=== PATIENT | male | born 1945 | race Caucasian/White ===

== ENCOUNTER → 2017-12-29 14:51 | Outpatient (CLI) | payer SELFPAY ==
[2017-12-29 15:00] LABS: Bacteria 0 SEEN /hpf (None Seen); Mucous, Urine 0 SEEN /hpf (<or=2+); Red Blood Cells-Urine 0 SEEN /hpf (0-5); Squamous Epithelial Cells - UA 0 SEEN /hpf (0-5); White Blood Cells 0 SEEN /hpf (0-5)
[2017-12-29 15:50] LABS: Color, Urine Yellow (Yellow); Glucose, Dipstick Normal (Normal); Ketone-Dipstick Negative (Negative); Leukocyte Esterase-Dipstick Negative /ul (Negative); Nitrite-Dipstick Negative (Negative); Occult Blood-Urine Negative /ul (Negative); Protein-Dipstick Negative (Negative); Specific Gravity, Urine 1.005 (1.002-1.030); Urine Bilirubin Dipstick Negative (Negative); Urine Clarity Clear (Clear); Urine Urobilinogen Normal (Normal); Urine pH 6.5 (5.0 - 8.0)
[2017-12-29 15:59] LABS: Hematocrit 38.6 % (40-54); Hemoglobin 13.2 g/dl (13.0-16.5); Mean Corp Hgb Conc 34.2 g/gl (32-36); Mean Corpuscular Hgb 31.4 pg (27.0-32.0); Mean Corpuscular Volume 91.9 fL (80-94); Mean Platelet Vol. 9.8 fl (6.2-12.0); Platelet Count 234 K/mm3 (150-450); RBC Distribution Width CV 12.5 % (11.6-14.6); White Blood Count 6.2 K/mm3 (4.4-11.0)
[2017-12-29 16:15] LABS: Scan Indicated on CBC? Y/N NO
[2017-12-29 16:24] LABS: Albumin, Serum 3.7 g/dL (3.2-5.0); BUN 15 mg/dL (7-18); BUN/Creat Ratio 13.9 RATIO (10-20); Calcium,Total 8.9 mg/dL (8.5-10.1); Chloride 103 mmol/L (98-107); Creatinine, Serum 1.08 mg/dL (0.70-1.30); EST Glomerular Filtration Rate 71 mL/min (>60); Est Glom Filt Rate - Afr Amer 86 mL/min (>60); Glucose 87 mg/dL (74-106); Iron 73 ug/dL (65-175); Iron Binding Capacity,Total 284 ug/dL (250-450); Phosphorus 3.2 mg/dL (2.5-4.9); Potassium 4.1 mmol/L (3.5-5.1); Sodium Level 139 mmol/L (136-145)
== END ==
PROVIDERS: Family Provider Family Medicine; PCP Family Medicine; Visit Provider Internal Medicine Nephrology
DX: N18.2 Chronic kidney disease, stage 2 (mild) (principal)
CPT/HCPCS: 36415; 80069; 81001; 83540; 83550; 85027

== ENCOUNTER → 2018-02-24 13:53 | Outpatient (CLI) | payer SELFPAY | PROVIDERS: Visit Provider Family Medicine | DX: R07.9 Chest pain, unspecified (principal) | CPT/HCPCS: 36415; 84484 ==

== ENCOUNTER → 2018-03-01 12:02 | Outpatient (CLI) | payer SELFPAY ==
--- NOTE | 2018-03-01 12:05 | CT_ITS ---
STUDY: LOW DOSE CT LUNG CANCER SCREENING REASON FOR EXAM: Male, 72 years old. Current smoker with a greater than 50 pack-year history. Cough with occasional bloody sputum. No family history. RADIATION DOSAGE (If Supplied By Facility): CTDIvol = ( 2.55 ) mGy, DLP = ( 93.47 ) mGycm TECHNIQUE: No contrast was administered. Low dose technique was utilized (average mAS-38 and kVp 120). 1.25 mm axial source images with a slice interval of 1.25-mm were reconstructed in lung windows. 2.5 mm axial source images with a slice interval of 2.5-mm were reconstructed in lung windows. 5.0 mm axial source images with a slice interval of 5.0-mm were reconstructed in soft tissue windows. Nodule measured using lung windows on PACS and/or independent workstation with automated measurement of minimum and maximum diameter. Nodule measurement reported as average diameter rounded to the nearest whole number. Growth is defined as an increase ins size of greater than 1.5 mm. COMPARISON: Chest, November 16, 2016. NODULES: Nodule #: 1 Density: Solid Lung location: Left upper lobe lobe: Pleural-based Location in series: Series Number: [id number] Image: 47 Size - D1 x D2 mm: 1.3 x 1.1 mm: 1.3 cm average diameter Margin: Irregular Shape: Triangular Calcification: No Fat: No Temporal comparison: Stable Nodule #: 2 Density: Solid Lung location: Left upper lobe: Pleural-based Location in series: Series Number: [id number] Image: 7 Size - D1 x D2 mm: 5 x 4 mm: 5 mm average diameter Margin: Smooth Shape: Interval Calcification: Yes Fat: No Temporal comparison: Stable Nodule #: 3 Density: Solid Lung location: Left lower lobe: 0.3 cm from pleura Location in series: Series Number: [id number] Image: 98 Size - D1 x D2 mm: 5 x 3 mm: 5 mm average diameter Margin: Smooth Shape: Oval Calcification: No Fat: No Temporal comparison: None Nodule #: 4 Density: Solid Lung location: Left lower lobe: 3.6 cm from pleura Location in series: Series Number: [id number] Image: 197 Size - D1 x D2 mm: 5 x 5 mm: 5 mm average diameter Margin: Smooth Shape: Rounded Calcification: Yes Fat: No Temporal comparison: Stable Total lung nodules (excluding granulomas): 2 Emphysema: There are diffuse emphysematous changes. There is marked scarring in both apices most marked on the left. This extends downward includes the large nodule seen in the left lung apex which may represent focal scarring. Endobronchial lesion: None Aorta: There is atherosclerotic changes of the thoracic aorta without aneurysm. Coronary arteries: There are coronary artery calcifications. Heart: The heart is normal in size. Pulmonary artery: Mediastinal nodes: There are multiple calcified and noncalcified mediastinal and hilar lymph nodes. Other chest and abdominal findings: There are degenerative changes of the thoracic spine. CT/Low Dose CT Lung Screening IMPRESSION: Lung-RADS category 4A - Screening at 3 months with LDCT or evaluation with PET/CT may be used. IMPORTANT NOTES FOR USE: ACR Lung-RADS Version 1.0 Assessment Categories Release Date: November 26, 2013 Category: Coded 0-4 bases on nodule(s) with highest degree of suspicion. Negative screen is defined as categories 1 and 2; a positive screen is defined as categories 3 and 4. Category 3 and 4A nodules that are unchanged on interval CT should be coded as category 2, and individuals returned to screening in 12 months. Category 4X: Category 3 or 4 nodules with additional imaging findings that increase the suspicion of lung cancer, such as spiculation, GGN that doubles in size in 1 year, enlarged lymph notes, etc. Category Modifiers: S (significant finding unrelated to lung cancer) and C (prior history of treated lung cancer) may be added to the 0-4 Lung-RADS Electronically Signed: Dave Quiroga DO at 17:00 EDT Tel [phone], Service support ,
== END ==
PROVIDERS: Family Provider Family Medicine; PCP Family Medicine; Visit Provider Family Medicine
DX: R05 Cough (principal)
CPT/HCPCS: G0297

== ENCOUNTER → 2018-03-06 11:28 | Outpatient (CLI) | payer SELFPAY | PROVIDERS: Family Provider Family Medicine; PCP Family Medicine; Visit Provider Family Medicine | DX: R07.9 Chest pain, unspecified (principal); I10 Essential (primary) hypertension ==

== ENCOUNTER 2018-03-06 14:21 | Emergency (ER) | payer SELFPAY ==
[2018-03-06 14:23] VITALS: BP 203/100; PULSE 80; RESP 16; TEMP 36.4; O2SAT 98; BMI 25.7
--- NOTE | 2018-03-06 14:41 | EKG12_ITS ---
Test Reason : Blood Pressure : / mmHG Vent. Rate : 072 BPM Atrial Rate : 072 BPM P-R Int : 166 ms QRS Dur : 100 ms QT Int : 388 ms P-R-T Axes : 040 037 068 degrees QTc Int : 424 ms Normal sinus rhythm Normal ECG Confirmed by KETTY DAVIS, ASTER ([id number]), editorial specialist EFFIE BYRNE ([id number] on 03/08/2018 10:10:52 AM Referred By: ODALIS Confirmed By:ASTER HDEZ MD
[2018-03-06 14:59] LABS: Absolute Lymphocyte Count 1.14 X10^3/ul (0.83-4.51); Absolute Neutrophil Count 3.3 X10^3/uL (2.0-7.7); Basophil# 0.01 X10^3/uL; Basophil% 0.2 % (0-1); Eosinophil# 0.15 X10^3/uL; Hematocrit 38.1 % (40-54); Hemoglobin 13.1 g/dl (13.0-16.5); Lymphocyte # 1.14 X10^3/ul (4.0); Lymphocyte % 22.4 % (19-41); Mean Corp Hgb Conc 34.4 g/gl (32-36); Mean Corpuscular Hgb 31.1 pg (27.0-32.0); Mean Corpuscular Volume 90.5 fL (80-94); Monocyte# 0.47 X10^3/uL; Monocyte% 9.3 % (0-10); Neutrophil % 64.9 % (47-70); POSITIVE COUNT NO; POSITIVE DIFFERENTIAL NO; POSITIVE MORPHOLOGY NO; Platelet Count 234 K/mm3 (150-450); RBC Distribution Width CV 12.6 % (11.6-14.6); RBC Distribution Width SD 41.4 fl (35.1-43.9); Red Blood Count 4.21 M/mm3 (4.6-6.2); White Blood Count 5.1 K/mm3 (4.4-11.0)
[2018-03-06] MEDS: Aspirin 81 MG TAB.CHEW 324 MG PO (15:02)
[2018-03-06 15:14] LABS: Anion Gap 6 (5-15); BUN 17 mg/dL (7-18); BUN/Creat Ratio 16.2 RATIO (10-20); Calcium,Total 8.8 mg/dL (8.5-10.1); Chloride 96 mmol/L (98-107); Creatinine, Serum 1.05 mg/dL (0.70-1.30); EST Glomerular Filtration Rate 73 mL/min (>60); Est Glom Filt Rate - Afr Amer 89 mL/min (>60); Estimated Creatinine Clearance 57.71 ml/min; Glucose 108 mg/dL (74-106); Potassium 4.3 mmol/L (3.5-5.1); Sodium Level 129 mmol/L (136-145)
--- NOTE | 2018-03-06 15:21 | ED.VISSUMM ---
- ER Visit Summary Date of Service: 03/06/18 Chief Complaint: Hypertension, abdominal pain History of Present Illness: The patient is a 73 M who says he has abdominal pain for 30 years. The real story is that he has at the stress lab to have a stress test today. His blood pressure was 230 systolic so they would not do his stress test. His PCP told him to come to the ER because of hypertension. The patient instead went to his office and they told him to come here. The patient states that his PCP told him that he needed a CAT scan of his abdomen because he is full of residue in his stomach that makes his blood pressure go up. Patient states he needs more HCl in his stomach balances pH. He states that by vomiting and belching he can regulate his blood pressure. However apparently it has not been working because he is on amlodipine metoprolol and lisinopril for his blood pressure. He then told the nurse that he took a pill of clonidine before walking into the ER. Physical Examination: Vital signs reviewed. HEENT exam unremarkable. Heart is regular rate and rhythm without murmurs. Lungs are clear to auscultation. Abdomen is soft and nontender. Extremities reveal no edema. Skin exam normal. Neurologic exam normal. Test Results: EKG is sinus rhythm with no ST changes. Labs are unremarkable except for sodium of 129, chloride of 96. Troponin is 0.041. Emergency Department Course and Treatment: Patient took the clonidine in the parking lot. His blood pressure now is 155/84. I spoke with his primary care physician who states the patient is very difficult to deal with for his blood pressure. Patient will be discharged to take his home medications and follow-up with his PCP Treatment Plan: [] Disposition: Discharge Impression: Hypertension This note was generated with [employer] software. It may contain incorrect words, spelling, and punctuation that were not noted in review of the chart prior to signing ED Disposition - Plan for ED Patient: Chief Complaint: Abd Pain Referrals: Neville Islas DO [Primary Care Provider] -
--- NOTE | 2018-03-06 15:27 | ED.DCSUM_ITS ---
- ER Visit Summary Date of Service: 03/06/18 Chief Complaint: Hypertension, abdominal pain History of Present Illness: The patient is a 73 M who says he has abdominal pain for 30 years. The real story is that he has at the stress lab to have a stress test today. His blood pressure was 230 systolic so they would not do his stress test. His PCP told him to come to the ER because of hypertension. The patient instead went to his office and they told him to come here. The patient states that his PCP told him that he needed a CAT scan of his abdomen because he is full of residue in his stomach that makes his blood pressure go up. Patient states he needs more HCl in his stomach balances pH. He states that by vomiting and belching he can regulate his blood pressure. However apparently it has not been working because he is on amlodipine metoprolol and lisinopril for his blood pressure. He then told the nurse that he took a pill of clonidine before walking into the ER. Physical Examination: Vital signs reviewed. HEENT exam unremarkable. Heart is regular rate and rhythm without murmurs. Lungs are clear to auscultation. Abdomen is soft and nontender. Extremities reveal no edema. Skin exam normal. Neurologic exam normal. Test Results: EKG is sinus rhythm with no ST changes. Labs are unremarkable except for sodium of 129, chloride of 96. Troponin is 0.041. Emergency Department Course and Treatment: Patient took the clonidine in the parking lot. His blood pressure now is 155/84. I spoke with his primary care physician who states the patient is very difficult to deal with for his blood pressure. Patient will be discharged to take his home medications and follow- up with his PCP Treatment Plan: [] Disposition: Discharge Impression: Hypertension This note was generated with [employer] software. It may contain incorrect words, spelling, and punctuation that were not noted in review of the chart prior to signing ED Disposition - Plan for ED Patient: Chief Complaint: Abd Pain Referrals: Neville Islas DO [Primary Care Provider] -
--- NOTE | 2018-03-06 15:28 | ED.DEP ---
ED Disposition - Plan for ED Patient: Disposition: Home or Assisted Living Chief Complaint: Abd Pain Instructions: ED HTN Established Referrals: Neville Islas DO [Primary Care Provider] -
[2018-03-06 15:50] VITALS: BP 179/86; PULSE 79; RESP 16; O2SAT 98
== END 2018-03-06 15:52 | disposition home or self-care (01) ==
PROVIDERS: Emergency Provider Emergency Medicine; Family Provider Family Medicine; PCP Family Medicine
DX: I10 Essential (primary) hypertension (principal); R10.9 Unspecified abdominal pain; Z86.73 Personal history of transient ischemic attack (TIA), and cerebral infarction without residual deficits; Z79.82 Long term (current) use of aspirin; Z79.899 Other long term (current) drug therapy
CPT/HCPCS: 80048; 84484; 85025; 93005; 99284

== ENCOUNTER → 2018-03-07 11:25 | Outpatient (CLI) | payer SELFPAY | PROVIDERS: Family Provider Family Medicine; PCP Family Medicine; Visit Provider Family Medicine | DX: R10.9 Unspecified abdominal pain (principal) ==

== ENCOUNTER → 2018-03-15 16:28 | Outpatient (CLI) | payer SELFPAY | PROVIDERS: Family Provider Family Medicine; PCP Family Medicine; Visit Provider Family Medicine | DX: R10.9 Unspecified abdominal pain (principal) | CPT/HCPCS: 74177; Q9967 ==

== ENCOUNTER → 2018-06-13 14:23 | Outpatient (CLI) | payer SELFPAY ==
--- NOTE | 2018-06-13 14:27 | CT_ITS ---
Follow up lung nodules, SMOKER X 50 YEARS-2-3 PP WEEK TECHNIQUE: Helically acquired images were obtained of the chest. A radiation dose optimization technique was used for this scan. IV Contrast dosage and agent: None. COMPARISON: 03/01/2018 FINDINGS: Stable findings when compared to previous. Left apical and left upper lobe pleural parenchymal scarring and additional right apical mild scarring. Bilateral calcified granulomas, more numerous on the left. No new or suspicious pulmonary lesion. Minor distal lobular emphysema. No acute infiltrate or pleural effusion. Numerous calcified mediastinal lymph nodes together with left hilar calcified nodes. Atherosclerotic thoracic aorta which is normal in caliber and coronary artery calcifications, as well no pericardial effusion. The gallbladder shows mild diffuse wall thickening and subtle gallstones are also suspected. Right hepatic lobe [address]/Chest without Contrast IMPRESSION: 1. No acute disease, significant change, or suspicious lesion. 2. 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 3. Atherosclerotic calcifications including coronary artery calcifications. 4. Probable chronic cholecystitis. If not already performed, suggest further correlation with gallbladder ultrasound. Individualized dose optimization techniques were used for this CT. at 0737 Reported and signed by: Jese Gonsalez MD Electronically Signed: Jese Gonsalez, at 7:34 EST Tel , Service support ,
== END ==
PROVIDERS: Family Provider Family Medicine; PCP Family Medicine; Referring Provider Family Medicine; Visit Provider Family Medicine
DX: R91.8 Other nonspecific abnormal finding of lung field (principal)
CPT/HCPCS: 71250

== ENCOUNTER → 2018-06-19 13:07 | Outpatient (CLI) | payer SELFPAY ==
--- NOTE | 2018-06-19 14:08 | ECHOD_ITS ---
Reason For Study: Chest pain Procedure This was a 2D Doppler, Color Flow transthoracic echocardiogram. Exam performed in department. Left Ventricle Normal LV size. Mild concentric left ventricular hypertrophy. Left ventricular systolic function is normal. The estimated ejection fraction is 60 %. Stage 1 diastolic dysfunction. No regional wall motion abnormalities noted. Right Ventricle Normal RV size. Normal systolic function. Atria Normal left atrium. Normal right atrium. Mitral Valve Normal mitral valve. Tricuspid Valve Normal tricuspid valve. Mild tricuspid valve insufficiency. Aortic Valve Bicuspid aortic valve. Mild aortic stenosis. Peak aortic valve gradient 21 mmHg. Mean aortic valve gradient 10.7 mmHg. Pulmonic Valve Normal pulmonic valve. Great Vessels Normal aortic root. The pulmonary artery is normal size. Normal inferior vena cava. Pericardium/Pleural No pericardial effusion. MMode/2D Measurements & Calculations LVIDd: 3.7 cm IVSd: 1.4 cm LVOT diam: 2.3 cm LVIDs: 1.8 cm LVPWd: 1.2 cm LVOT area: 4.3 cm2 RVDd: 3.0 cm FS: 52.3 % Ao root diam: 3.2 cm LAV(MOD-bp): 66.3 ml LVAd ap4: 31.3 cm2 LAV(MOD-bp) Indexed: 36.0 ml/m2 EDV(MOD-sp4): 93.7 ml LAV(MOD-sp2): 67.0 ml EDV(sp4-el): 94.1 ml LAV(MOD-sp4): 46.3 ml LVAs ap4: 18.3 cm2 ESV(MOD-sp4): 36.5 ml ESV(sp4-el): 36.2 ml EF(MOD-sp4): 61.0 % EF(sp4-el): 61.6 % SV(MOD-sp4): 57.1 ml SV(sp4-el): 57.9 ml LA A4 area: 16.1 cm2 LA dimension(2D): 3.2 cm RA A4 area: 11.4 cm2 Doppler Measurements & Calculations MV E max alvaro: 82.0 cm/sec Ao V2 max: 231.7 cm/sec LV V1 max: 119.7 cm/sec MV A max alvaro: 99.0 cm/sec Ao max P.5 mmHg LV V1 max P.7 mmHg MV E/A: 0.83 Ao V2 mean: 154.7 cm/sec LV V1 mean P.7 mmHg Ao mean P.7 mmHg LV V1 mean: 77.9 cm/sec Ao V2 VTI: 52.1 cm LV V1 VTI: 26.8 cm PAT(I,D): 2.2 cm2 PAT(V,D): 2.2 cm2 SV(LVOT): 115.4 ml PA V2 max: 143.3 cm/sec Interpretation Summary Normal LV size. Mild concentric left ventricular hypertrophy. Left ventricular systolic function is normal. The estimated ejection fraction is 60 %. Stage 1 diastolic dysfunction. Bicuspid aortic valve. Mean aortic valve gradient 10.7 mmHg. Mild aortic stenosis. Ordering Physician: Neville Islas Referring Physician: Neville Islas Performed By: Gabriella Álvarez RDCS
== END ==
PROVIDERS: Family Provider Family Medicine; PCP Family Medicine; Referring Provider Family Medicine; Visit Provider Family Medicine
DX: R07.9 Chest pain, unspecified (principal); I10 Essential (primary) hypertension
CPT/HCPCS: 93306

== ENCOUNTER → 2018-06-21 08:51 | Outpatient (CLI) | payer SELFPAY ==
--- NOTE | 2018-06-21 08:54 | US_ITS ---
STUDY: ABDOMINAL ULTRASOUND - RIGHT UPPER QUADRANT REASON FOR VISIT: Male, 73 years old. Upper abdominal pain and bloating TECHNIQUE: Ultrasound evaluation of the right upper quadrant was performed with real-time and static kelly-scale imaging. TECHNICAL QUALITY: Adequate. COMPARISON: CT from 03/15/2018 FINDINGS: Liver: The liver measures 16 cm. There is normal echogenicity of the liver. The bile ducts are within normal limits. There is hepatic color flow. The direction of portal flow is hepatopetal. There is no demonstrated mass lesion. Gallbladder: Partially distended gallbladder. The gallbladder wall measures 4 mm. There is a negative sonographic Escobar's sign. There is no pericholecystic fluid. No shadowing gallstones are identified, however, echogenic focus with comet tail artifact of the gallbladder fundus identified. Common Bile Duct (C.B.D.): The common bile duct measures 3 mm. Pancreas: There is normal echogenicity of the pancreas. There is no demonstrated pancreatic mass or cyst. Right Kidney: Normal size of the right kidney. The right kidney measures 9.3 cm. Normal renal cortex. The right cortex measures 1.2 cm. There is no demonstrated renal mass or cyst. There is no right hydronephrosis. US/Abdomen Limited IMPRESSION: 1. No shadowing gallstones. 2. Mild gallbladder wall thickening with comet tail artifact suggesting adenomyomatosis. Electronically Signed: Chris Oden MD at 7:29 EST , Service support ,
== END ==
PROVIDERS: Family Provider Family Medicine; PCP Family Medicine; Referring Provider Family Medicine; Visit Provider Family Medicine
DX: K80.10 Calculus of gallbladder with chronic cholecystitis without obstruction (principal)
CPT/HCPCS: 76705

== ENCOUNTER → 2018-07-26 16:18 | Outpatient (CLI) | payer SELFPAY ==
[2018-07-26 17:13] LABS: Color, Urine Yellow (Yellow); Glucose, Dipstick Normal (Normal); Hematocrit 41.1 % (40-54); Hemoglobin 13.9 g/dl (13.0-16.5); Ketone-Dipstick Negative (Negative); Leukocyte Esterase-Dipstick Negative /ul (Negative); Mean Corp Hgb Conc 33.8 g/gl (32-36); Mean Corpuscular Hgb 31.4 pg (27.0-32.0); Mean Corpuscular Volume 92.8 fL (80-94); Mean Platelet Vol. 9.7 fl (6.2-12.0); Nitrite-Dipstick Negative (Negative); Occult Blood-Urine Negative /ul (Negative); Platelet Count 260 K/mm3 (150-450); Protein-Dipstick Negative (Negative); RBC Distribution Width CV 12.5 % (11.6-14.6); RBC Distribution Width SD 42.3 fl (35.1-43.9); Red Blood Count 4.43 M/mm3 (4.6-6.2); Specific Gravity, Urine 1.005 (1.002-1.030); Urine Bilirubin Dipstick Negative (Negative); Urine Clarity Sl Cloudy (Clear); Urine Urobilinogen Normal (Normal); White Blood Count 7.7 K/mm3 (4.4-11.0)
[2018-07-26 17:20] LABS: Scan Indicated on CBC? Y/N NO
[2018-07-26 17:34] LABS: Microalbumin,Random Urine 47.9 mg/L (NO RANGE EST.); Microalbumin:Creatinine Ratio 146.5 mg/g CRE (<30 mg/g CRE); Protein, Urine (Random) 8.3 mg/dL (<11.9); Protein:Creat Ratio 254 mg/g CRE (0-200)
[2018-07-26 17:35] LABS: Albumin, Serum 4.1 g/dL (3.2-5.0); BUN 20 mg/dL (7-18); Calcium,Total 9.3 mg/dL (8.5-10.1); Chloride 104 mmol/L (98-107); Creatinine, Serum 1.25 mg/dL (0.70-1.30); EST Glomerular Filtration Rate 60 mL/min (>60); Est Glom Filt Rate - Afr Amer 73 mL/min (>60); Glucose 93 mg/dL (74-106); Phosphorus 3.5 mg/dL (2.5-4.9); Potassium 4.5 mmol/L (3.5-5.1); Sodium Level 138 mmol/L (136-145)
== END ==
PROVIDERS: Family Provider Family Medicine; PCP Family Medicine; Referring Provider Internal Medicine Nephrology; Visit Provider Internal Medicine Nephrology
DX: N18.2 Chronic kidney disease, stage 2 (mild) (principal)
CPT/HCPCS: 36415; 80069; 81002; 82043; 82570; 84156; 85027

== ENCOUNTER → 2018-08-17 06:22 | Outpatient (CLI) | payer SELFPAY ==
--- NOTE | 2018-08-17 20:29 | STRESSREP ---
Stress Test Report Date : 08/17/2018 Procedure: Pharmacologic (regadenoson (right rotation Indications: Chest pain; CAD Consent: Per the patient Procedure: The patient underwent pharmacologic (regadenoson) evaluation with a peak heart rate of 90 beats per minute (61% predicted maximal heart rate) with a peak blood pressure was 178/100 mmHg. The baseline ECG demonstrated normal sinus rhythm. The peak pharmacological ECG demonstrated no obvious ECG changes.The recovery ECG was subsequently noted to demonstrate approximately 0.[address] segment depression in leads II, III, aVF, and V5 through V6 with gradual resolution towards baseline in recovery. There were no cardiac dysrhythmias pretest, during pharmacologic infusion, or recovery. There was notation of chest discomfort/burning over the right breast with spontaneous resolution and recovery. The examination was discontinued secondary to completion of protocol. Impression: 1. Pharmacologic (regadenoson (radiation 2. Peak pharmacologic ECG with no obvious ECG changes. 3. Recovery ECG subsequently noted a demonstrate approximately 0.[address] segment depression in leads II, III, aVF, and V5 through V6 with gradual resolution towards baseline and recovery 4. Nuclear images pending Myocardial perfusion imaging study: Technique: The patient was injected with 11.7 mci of technetium-99m Cardiolite and subsequent stress SPECT Cardiolite nuclear imaging was obtained in the horizontal long, vertical long, and short axis views. The patient underwent pharmacologic (regadenoson) evaluation with a peak heart rate of 90 beats per minute (61% predicted maximal heart rate) with a peak blood pressure of 178/100 mmHg. The patient was injected with 33.9 mci of technetium 99 M Cardiolite and subsequently stress SPECT Cardiolite nuclear imaging was obtained in the horizontal long, vertical long, and short axis views. A gated Cardiolite study at peak stress was obtained. Interpretation: Rest and stress SPECT Cardiolite nuclear imaging status post realignment, normalization, and attenuation correction, demonstrates the appearance of extra cardiac/gastrointestinal tracer uptake near the inferior segments. Otherwise there appears to be relative uniform tracer uptake and myocardial perfusion appearing within normal limits. There is end systolic thickening and brightening. The gated Cardiolite study demonstrates myocardial thickening and inward wall motion. The reported LVEF is 64%. Impression: 1. Rest and stress SPECT Cardiolite nuclear imaging demonstrate relative uniform tracer uptake and myocardial perfusion appearing within normal limits. 2. The gated Cardiolite study demonstrates an LVEF of 64%. This note was generated using a voice recognition system and there may be incorrect words, spelling or punctuation that were not noted when reviewing the office note prior to saving.
--- OUTSIDE RECORDS SUMMARY | 2018-10-21 18:34 | XMS RPT_ITS ---
:1945 Author Organization OHIP Support Name Relationship Address Phone R Unavailable Unavailable Unavailable CHRIS, RAUDEL Unavailable [address] + [place] [address] R Unavailable Unavailable Unavailable CHRIS, RAUDEL Unavailable [address] + [place] [address] R Unavailable Unavailable Unavailable CHRIS, RAUDEL Unavailable [address] + [place] [address] R Unavailable Unavailable Unavailable CHRIS, RAUDEL Unavailable [address] + [place] [address] R Unavailable Unavailable Unavailable CHRIS, RAUDEL Unavailable [address] + [place] [address] R Unavailable Unavailable Unavailable CHRIS, RAUDEL Unavailable [address] + [place] [address] R Unavailable Unavailable Unavailable CHRIS, RAUDEL Unavailable [address] + [place] [address] R Unavailable Unavailable Unavailable CHRIS, RAUDEL Unavailable [address] + [place] [address] R Unavailable Unavailable Unavailable CHRIS, RAUDEL Unavailable [address] + [place] [address] R Unavailable Unavailable Unavailable CHRIS, RAUDEL Unavailable [address] + [place] [address] R Unavailable Unavailable Unavailable CHRIS, RAUDEL Unavailable [address] + [place] [address] R Unavailable Unavailable Unavailable CHRIS, RAUDEL Unavailable [address] + [place] [address] R Unavailable Unavailable Unavailable CHRIS, RAUDEL Unavailable [address] + [place] [address] Care Team Providers Name Role Phone Mark, Adrian Attending Unavailable Roshan, Neville Referring Unavailable Bakhous, Aziz Attending Unavailable Bakhous, Aziz Referring Unavailable Roshan, Nevlile Primary Care Unavailable Bakhous, Aziz Attending Unavailable Bakhous, Aziz Referring Unavailable Roshan, Neville Primary Care Unavailable Roshan, Neville Attending Unavailable Roshan, Neville Attending Unavailable Roshan, Neville Referring Unavailable Roshan, Neville Primary Care Unavailable Roshan, Neville Attending Unavailable Roshan, Neville Referring Unavailable Roshan, Neville Primary Care Unavailable Roshan, Neville Attending Unavailable Roshan, Neville Referring Unavailable Roshan, Neville Primary Care Unavailable Roshan, Neville Primary Care Unavailable Jean Garcia Attending Unavailable Roshan, Neville Attending Unavailable Roshan, Neville Primary Care Unavailable Roshan, Neville Attending Unavailable Roshan, Neville Referring Unavailable Roshan, Neville Primary Care Unavailable Roshan, Neville Attending Unavailable Roshan, Neville Referring Unavailable Roshan, Neville Primary Care Unavailable Roshan, Neville Attending Unavailable Roshan, Neville Referring Unavailable Roshan, Neville Primary Care Unavailable Roshan, Neville Attending Unavailable Roshan, Neville Referring Unavailable Roshan, Neville Primary Care Unavailable PROBLEMS PROBLEMS DATE TYPE CONDITION / CODE ATTENDING STATUS SOURCE 07/26/2018 Unknown N18.2 - Chronic Bakhous, Aziz Active [place] kidney disease, Community stage 2 (mild) / Hospital N18.2(ICD-10) Repository 07/11/2018 Unknown R07.9 - Chest Mark, [place] Active [place] pain, unspecified Community / R07.9(ICD-10) Hospital Repository 07/11/2018 Unknown R06.09 - Other Mark, Adrian Active [facility] forms of dyspnea Community / R06.09(ICD-10) Hospital Repository 03/17/2018 Unknown R10.9 - Roshan, Neville Active [facility] Unspecified Community abdominal pain / Hospital R10.9(ICD-10) Repository PROCEDURES PROCEDURES No Procedure Records FoundRESULTS RESULTS STRESS REPORT Observed: 08/17/2018 Status: F Source: [place] 8:36 PM [facility] REPOSITORY [facility] Cardiovascular Services [address] [place] [address] MR#: [id number] Acct: [id number] Name: JARED PEREZ Rep #: [id number] : 1945 73 From: Demetrius Hdez MD Primary Care: Neville Islas DO Status: REG CLI Ordering Dr: Sex: Amy Burgess Stress Test Report Date : 08/17/2018 Procedure: Pharmacologic (regadenoson (right rotation Indications: Chest pain; CAD Consent: Per the patient Procedure: The patient underwent pharmacologic (regadenoson) evaluation with a peak heart rate of 90 beats per minute (61% predicted maximal heart rate) with a peak blood pressure was 178/100 mmHg. The baseline ECG demonstrated normal sinus rhythm. The peak pharmacological ECG demonstrated no obvious ECG changes.The recovery ECG was subsequently noted to demonstrate approximately 0.[address] segment depression in leads II, III, aVF, and V5 through V6 with gradual resolution towards baseline in recovery. There were no cardiac dysrhythmias pretest, during pharmacologic infusion, or recovery. There was notation of chest discomfort/burning over the right breast with spontaneous resolution and recovery. The examination was discontinued secondary to completion of protocol. Impression: 1. Pharmacologic (regadenoson (radiation 2. Peak pharmacologic ECG with no obvious ECG changes. 3. Recovery ECG subsequently noted a demonstrate approximately 0.[address] segment depression in leads II, III, aVF, and V5 through V6 with gradual resolution towards baseline and recovery 4. Nuclear images pending Myocardial perfusion imaging study: Technique: The patient was injected with 11.7 mci of technetium-99m Cardiolite and subsequent stress SPECT Cardiolite nuclear imaging was obtained in the horizontal long, vertical long, and short axis views. The patient underwent pharmacologic (regadenoson) evaluation with a peak heart rate of 90 beats per minute (61% predicted maximal heart rate) with a peak blood pressure of 178/100 mmHg. The patient was injected with 33.9 mci of technetium 99 M Cardiolite and subsequently stress SPECT Cardiolite nuclear imaging was obtained in the horizontal long, vertical long, and short axis views. A gated Cardiolite study at peak stress was obtained. Interpretation: Rest and stress SPECT Cardiolite nuclear imaging status post realignment, normalization, and attenuation correction, demonstrates the appearance of extra cardiac/gastrointestinal tracer uptake near the inferior segments. Otherwise there appears to be relative uniform tracer uptake and myocardial perfusion appearing within normal limits. There is end systolic thickening and brightening. The gated Cardiolite study demonstrates myocardial thickening and inward wall motion. The reported LVEF is 64%. Impression: 1. Rest and stress SPECT Cardiolite nuclear imaging demonstrate relative uniform tracer uptake and myocardial perfusion appearing within normal limits. 2. The gated Cardiolite study demonstrates an LVEF of 64%. This note was generated using a voice recognition system and there may be incorrect words, spelling or punctuation that were not noted when reviewing the office note prior to saving. 08/17/182035 <Electronically signed by Demetrius Hdez MD> Date Demetrius Hdez MD CC: Neville Islas DO Date Dictated: 08/17/182028 Date Transcribed: 08/17/182028 Gas Burner Operator: PM Signed URINALYSIS, ROUTINE Collected: 07/26/2018 Status: F Source: [place] (DIPSTICK) 4:20 PM [facility] [place] REPOSITORY Order Comment: How was Urine Obtained? CLEAN CATCH TYPE CODE TESTS RESULT OUT OF RANGE REFERENCE UNITS LAB L400.3000 Yellow COLOR Normal Yellow LAB L400.3050 Clear Sl Normal CLARITY Cloudy LAB L400.3200 Normal mg/dl Normal GLUCOSE, UR Normal LAB L400.3300 Negative mg/dL Normal BILIRUBIN URINE Negative LAB L400.3400 Negative mg/dl Normal KETONE UR Negative LAB L400.3465 1.002-1.030 Normal SP.GR. DIPSTX 1.005 LAB L400.3550 5.0 - 8.0 pH UR Normal 7.0 LAB L400.3600 Negative mg/dl PROT Normal DIPSTX Negative LAB L400.3700 Normal mg/dl Normal UROBILI Normal LAB L400.3750 Negative Normal NITRITE UR Negative LAB L400.3780 Negative /ul Normal OCCULT BLOOD-UR Negative LAB L400.3800 Negative /ul LEUK Normal ESTERASE Negative Performed By: #### L400.2010 #### [facility] [address] [place], [address] CBC-COMPLETE BLOOD CNT Collected: 07/26/2018 Status: F Source: [place] NO DIFF 4:20 PM [facility] [place] REPOSITORY TYPE CODE TESTS RESULT OUT OF RANGE REFERENCE UNITS LAB L100.1000 4.4-11.0 K/mm3 Normal WBC 7.7 LAB L100.1200 4.6-6.2 M/mm3 Low RBC 4.43 LAB L100.1300 13.0-16.5 g/dl Normal HGB 13.9 LAB L100.1400 40-54 % Normal HCT 41.1 LAB L100.1500 80-94 fL Normal MCV 92.8 LAB L100.1600 27.0-32.0 pg Normal MCH 31.4 LAB L100.1700 32-36 g/gl Normal MCHC 33.8 LAB L100.1810 11.6-14.6 % Normal RDW CV 12.5 LAB L100.1820 35.1-43.9 fl Normal RDW SD 42.3 LAB L100.1900 150-450 K/mm3 Normal PLT 260 LAB L100.2000 6.2-12.0 fl Normal MPV 9.7 Performed By: #### L100.0500 #### [facility] [address] [place], [place], [id number] PROTEIN+CREATININE Collected: Status: F Source: [place] RATIO,URINE 07/26/2018 4:20 PM [facility] [place] REPOSITORY TYPE CODE TESTS RESULT OUT OF RANGE REFERENCE UNITS LAB L501.1200 NO RANGE EST. mg/dL Normal UR CREAT 32.70 LAB L501.1930 <11.9 mg/dL Normal 8.3 PROTEIN,UR.R AN. LAB L501.1940 0-200 mg/g CRE High PROT:CRE 254 RATIO Performed By: #### L501.0900, L502.0250 #### [facility] [address] [place], [place], [id number] MICROALB:CREAT Collected: 07/26/2018 Status: F Source: [place] RATIO,RANDOM UR 4:20 PM [facility] [place] REPOSITORY TYPE CODE TESTS RESULT OUT OF RANGE REFERENCE UNITS LAB L502.0500 NO RANGE EST. mg/L Normal 47.9 MICROALBUMIN ,UR LAB L502.0600 <30 mg/g CRE mg/g CRE High 146.5 MALB:CREAT Performed By: #### L501.0900, L502.0250 #### [facility] [address] [place], [address] RENAL PROFILE Collected: 07/26/2018 Status: F Source: [place] 4:20 PM [facility] [place] REPOSITORY TYPE CODE TESTS RESULT OUT OF RANGE REFERENCE UNITS LAB L501.0100 74-106 mg/dL Normal GLU 93 Result Comment: Please note revised GLUCOSE reference range effective 2017. LAB L501.1000 7-18 mg/dL High BUN 20 LAB L501.1100 0.70-1.30 mg/dL Normal CREAT,SERUM 1.25 Result Comment: The validity of the calculated GFR AND GFRAA in patients over 70 years has not been determined. Clinical correlation is essential. LAB L501.1110 >60 mL/min Normal EST GFR 60 Result Comment: Non- GFR Calc LAB L501.1115 >60 mL/min Normal EST GFR - AA 73 Result Comment: GFR Calc LAB L501.1300 10-20 RATIO Normal BUN/CRE 16.0 LAB L501.1800 3.2-5.0 g/dL Normal ALB 4.1 LAB L501.2200 8.5-10.1 mg/dL CA Normal 9.3 LAB L501.2300 2.5-4.9 mg/dL Normal PHOS 3.5 LAB L501.5300 136-145 mmol/L NA Normal 138 LAB L501.5600 3.5-5.1 mmol/L K Normal 4.5 LAB L501.5900 98-107 mmol/L CL Normal 104 LAB L501.6100 21.0-32.0 mmol/L Normal CO2 28.0 Performed By: #### L500.3600 #### [facility] [address] [place], [address] ABDOMEN LIMITED Observed: 06/21/2018 Status: F Source: [place] 8:54 AM [facility] [place] REPOSITORY [facility] Imaging Services [address] [place] [address] Abdomen Limited MR#: [id number] Acct: [id number] Name: JARED PEREZ Rep #: [id number] : 1945 M 73 From: Chris Oden MD PCP: Neville Islas DO Status: REG CLI Study: Abdomen Limited Date of Exam: 06/21/18 Exam# [id number] Ordering Dr: Neville Islas DO STUDY: ABDOMINAL ULTRASOUND - RIGHT UPPER QUADRANT REASON FOR VISIT: Male, 73 years old. Upper abdominal pain and bloating TECHNIQUE: Ultrasound evaluation of the right upper quadrant was performed with real-time and static kelly-scale imaging. TECHNICAL QUALITY: Adequate. COMPARISON: CT from 03/15/2018 FINDINGS: Liver: The liver measures 16 cm. There is normal echogenicity of the liver. The bile ducts are within normal limits. There is hepatic color flow. The direction of portal flow is hepatopetal. There is no demonstrated mass lesion. Gallbladder: Partially distended gallbladder. The gallbladder wall measures 4 mm. There is a negative sonographic Escobar's sign. There is no pericholecystic fluid. No shadowing gallstones are identified, however, echogenic focus with comet tail artifact of the gallbladder fundus identified. Common Bile Duct (C.B.D.): The common bile duct measures 3 mm. Pancreas: There is normal echogenicity of the pancreas. There is no demonstrated pancreatic mass or cyst. Right Kidney: Normal size of the right kidney. The right kidney measures 9.3 cm. Normal renal cortex. The right cortex measures 1.2 cm. There is no demonstrated renal mass or cyst. There is no right hydronephrosis. US/Abdomen Limited IMPRESSION: 1. No shadowing gallstones. 2. Mild gallbladder wall thickening with comet tail artifact suggesting adenomyomatosis. Electronically Signed: Chris Oden MD at 7:29 EST , Service support , CC: Neville Islas DO Gas Burner Operator: Signed ECHOCARDIOGRAM COMPLETE Observed: 06/19/2018 Status: F Source: [place] 2:56 PM [facility] [place] REPOSITORY [facility] Cardiovascular Services [address] [place] [address] Echo Complete 06/19/18 1401 MR#: [id number] Acct: [id number] Name: JARED PEREZ Rep #: [id number] : 1945 73 From: Adrian Flores MD Attending Dr: Neville Islas DO Status: REG CLI Ordering Dr: Neville Islas DO Date: 06/19/18 Location: [facility] Sex: M C Admitted: Reason For Study: Chest pain Procedure This was a 2D Doppler, Color Flow transthoracic echocardiogram. Exam performed in department. Left Ventricle Normal LV size. Mild concentric left ventricular hypertrophy. Left ventricular systolic function is normal. The estimated ejection fraction is 60 %. Stage 1 diastolic dysfunction. No regional wall motion abnormalities noted. Right Ventricle Normal RV size. Normal systolic function. Atria Normal left atrium. Normal right atrium. Mitral Valve Normal mitral valve. Tricuspid Valve Normal tricuspid valve. Mild tricuspid valve insufficiency. Aortic Valve Bicuspid aortic valve. Mild aortic stenosis. Peak aortic valve gradient 21 mmHg. Mean aortic valve gradient 10.7 mmHg. Pulmonic Valve Normal pulmonic valve. Great Vessels Normal aortic root. The pulmonary artery is normal size. Normal inferior vena cava. Pericardium/Pleural No pericardial effusion. MMode/2D Measurements AND Calculations LVIDd: 3.7 cm IVSd: 1.4 cm LVOT diam: 2.3 cm LVIDs: 1.8 cm LVPWd: 1.2 cm LVOT area: 4.3 cm2 RVDd: 3.0 cm FS: 52.3 % Ao root diam: 3.2 cm LAV(MOD-bp): 66.3 ml LVAd ap4: 31.3 cm2 LAV(MOD-bp) Indexed: 36.0 ml/m2 EDV(MOD-sp4): 93.7 ml LAV(MOD-sp2): 67.0 ml EDV(sp4-el): 94.1 ml LAV(MOD-sp4): 46.3 ml LVAs ap4: 18.3 cm2 ESV(MOD-sp4): 36.5 ml ESV(sp4-el): 36.2 ml EF(MOD-sp4): 61.0 % EF(sp4-el): 61.6 % SV(MOD-sp4): 57.1 ml SV(sp4-el): 57.9 ml LA A4 area: 16.1 cm2 LA dimension(2D): 3.2 cm RA A4 area: 11.4 cm2 Doppler Measurements AND Calculations MV E max alvaro: 82.0 cm/sec Ao V2 max: 231.7 cm/sec LV V1 max: 119.7 cm/sec MV A max alvaro: 99.0 cm/sec Ao max P.5 mmHg LV V1 max P.7 mmHg MV E/A: 0.83 Ao V2 mean: 154.7 cm/sec LV V1 mean P.7 mmHg Ao mean P.7 mmHg LV V1 mean: 77.9 cm/sec Ao V2 VTI: 52.1 cm LV V1 VTI: 26.8 cm PAT(I,D): 2.2 cm2 PAT(V,D): 2.2 cm2 SV(LVOT): 115.4 ml PA V2 max: 143.3 cm/sec Interpretation Summary Normal LV size. Mild concentric left ventricular hypertrophy. Left ventricular systolic function is normal. The estimated ejection fraction is 60 %. Stage 1 diastolic dysfunction. Bicuspid aortic valve. Mean aortic valve gradient 10.7 mmHg. Mild aortic stenosis. Ordering Physician: Neville Islas Referring Physician: Neville Islas Performed By: Gabriella Álvarez JORGE 06/19/18 1456 Date Adrian Flores MD CC: Neville Islas DO Date Dictated: 06/19/18 1401 Date Transcribed: 06/19/181455 Gas Burner Operator: Signed CHEST WITHOUT Observed: 06/13/2018 Status: F Source: [place] CONTRAST 2:29 PM [facility] [place] REPOSITORY [facility] Imaging Services [address] [place] [address] Chest without Contrast MR#: [id number] Acct: [id number] Name: JARED PEREZ Rep #: [id number] : 1945 M 73 From: Jese Gonsalez MD PCP: Neville Islas DO Status: REG CLI Study: Chest without Contrast Date of Exam: 06/13/18 Exam# [id number] Ordering Dr: Neville Islas DO Follow up lung nodules, SMOKER X 50 YEARS-2-3 PP WEEK TECHNIQUE: Helically acquired images were obtained of the chest. A radiation dose optimization technique was used for this scan. IV Contrast dosage and agent: None. COMPARISON: 03/01/2018 FINDINGS: Stable findings when compared to previous. Left apical and left upper lobe pleural parenchymal scarring and additional right apical mild scarring. Bilateral calcified granulomas, more numerous on the left. No new or suspicious pulmonary lesion. Minor distal lobular emphysema. No acute infiltrate or pleural effusion. Numerous calcified mediastinal lymph nodes together with left hilar calcified nodes. Atherosclerotic thoracic aorta which is normal in caliber and coronary artery calcifications, as well no pericardial effusion. The gallbladder shows mild diffuse wall thickening and subtle gallstones are also suspected. Right hepatic lobe [address]/Chest without Contrast IMPRESSION: 1. No acute disease, significant change, or suspicious lesion. 2. 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 3. Atherosclerotic calcifications including coronary artery calcifications. 4. Probable chronic cholecystitis. If not already performed, suggest further correlation with gallbladder ultrasound. Individualized dose optimization techniques were used for this CT. at 0737 Reported and signed by: Jese Gonsalez MD Electronically Signed: Jese Gonsalez, at 7:34 EST Tel , Service support , CC: Neville Islas DO Gas Burner Operator: Signed ABDOMEN/PELVIS WITH Observed: 03/15/2018 Status: F Source: [place] CONTRAST 4:38 PM [facility] [place] REPOSITORY [facility] Imaging Services [address] [place] [address] Abdomen/Pelvis WITH Contrast MR#: [id number] Acct: [id number] Name: JARED PEREZ Rep #: [id number] : 1945 M 73 From: Efraín Barboza MD PCP: Neville Islas DO Status: REG CLI Study: Abdomen/Pelvis WITH Contrast Date of Exam: 03/15/18 Exam# [id number] Ordering Dr: Neville Islas DO STUDY: CT ABDOMEN AND PELVIS WITH CONTRAST REASON FOR EXAM: Male, 73 years old. Upper abdominal pain and bloating. Prior appendectomy. History of H. pylori. RADIATION DOSAGE (If Supplied By Facility): CTDIvol = ( 11.93 ) mGy, DLP = ( 690.74 ) mGycm TECHNIQUE: Transaxial images were obtained from the dome of the diaphragm to the symphysis pubis with oral contrast. 100mL ml of Isovue 300 contrast was administered. Sagittal and coronal images were reconstructed. Individualized dose optimization techniques were used for this CT. COMPARISON: None. FINDINGS: There is a calcified pulmonary granuloma in the visualized left lower lobe. The visualized portions of the heart are within normal limits. There is a 1.3 cm cyst in the right lobe of the liver. Normal gallbladder and extrahepatic biliary system. Normal spleen. Normal pancreas. Normal bilateral adrenal glands. Normal right kidney. Normal left kidney. Assessment of the stomach is limited by nondistention. Normal small intestine. There is mildly prominent colonic feces which may represent constipation. Otherwise normal appearing colon. There is non-visualization of the appendix. There is no evidence for appendicitis. There is diffuse atherosclerotic calcification of the abdominal aorta with elongation and tortuosity, but without a demonstrated aneurysm. Normal inferior vena cava. Normal retroperitoneum. Normal urinary bladder. Normal abdominal wall. There are multilevel degenerative changes of the visualized lumbar spine. CT/Abdomen/Pelvis WITH Contrast IMPRESSION: Somewhat prominent colonic feces, suggesting constipation. Atherosclerosis. Small liver cyst. No evidence for acute pathology. No evidence for diverticulitis. No evidence for bowel obstruction or ileus. Electronically Signed: Efraín Barboza MD at 6:02 EDT , Service support , CC: Neville Islas DO Gas Burner Operator: Signed 12 LEAD ELECTROCARDIOGRAM Observed: 03/08/2018 Status: F Source: [place] 10:11 AM [facility] [place] REPOSITORY [facility] Cardiovascular Services [address] [place] [address] 12 Lead EKG 03/06/18 1451 MR#: [id number] Acct: [id number] Name: JARED PEREZ Rep #: [id number] : 1945 73 From: Demetrius Hdez MD Attending Dr: Status: DEP ER Ordering Dr: Jean Garcia MD Date: 03/06/18 Location: ED Sex: M C Admitted: Test Reason : Blood Pressure : / mmHG Vent. Rate : 072 BPM Atrial Rate : 072 BPM P-R Int : 166 ms QRS Dur : 100 ms QT Int : 388 ms P-R-T Axes : 040 037 068 degrees QTc Int : 424 ms Normal sinus rhythm Normal ECG Confirmed by KETTY DAVIS, DEMETRIUS ([id number]), editor index EFFIE BYRNE ([id number]) on 03/08/2018 10:10:52 AM Referred By: RADHA Confirmed By:DEMETRIUS HDEZ MD 03/08/18 1010 Date Demetrius Hdez MD CC: Jean Garcia MD; Neville Islas DO Signed MISCELLANEOUS LAB Collected: 03/07/2018 Status: F Source: [place] PROCEDURE 11:27 AM [facility] [place] REPOSITORY Order Comment: Comments: H.PYLOR BREATH TEST Test(s) Ordered: #[id number] TYPE CODE TESTS RESULT OUT OF RANGE REFERENCE UNITS LAB L801.1541 Normal [facility] TEST Result Comment: TEST RESULT LIMITS H pylori Breath Test Positive Abnormal Negative TESTING PERFORMED AT [facility]. ORIGINAL REPORT ON FILE IN LAB CONTAINS ADDITIONAL TEST SITE INFORMATION. Performed By: #### L801.1541 #### [place] [facility] [address] [place], [address] DISCHARGE INSTRUCTION Observed: 03/06/2018 Status: F Source: [place] 3:29 PM [facility] REPOSITORY [facility] Medical Records Department [address] [place] [address] Discharge Instruction 03/06/18 1528 MR#: [id number] Acct: [id number] Name: JARED PEREZ Rep #: [id number] : 1945 73 From: Jean Garcia MD PCP: Neville Islas DO Status: REG ER ED Disposition - Plan for ED Patient: Disposition: Home or Assisted Living Chief Complaint: Abd Pain Instructions: ED HTN Established Referrals: Neville Islas, [Primary Care Provider] - What to do if you have Problems For any increased pain, shortness of breath, bleeding, nausea or vomiting, chest pain, or any unexpected problems, contact your Primary Care Provider. Call [facility] ([phone]) or report to the closest Emergency Room. Call 911 if necessary. 03/06/18 1529 <Electronically signed by Jean Garcia MD> Date Jean Garcia MD Cosigner Signature (If Indicated): Date CC: Neville Islas DO EMERGENCY DEPARTMENT Observed: 03/06/2018 Status: F Source: [place] SUMMARY 3:27 PM [facility] REPOSITORY [facility] Medical Records Department [address] [place] [address] Emergency Department Summary 03/06/18 1521 MR#: [id number] Acct: [id number] Name: JARED PEREZ Rep #: [id number] : 1945 73 From: Jean Garcia MD PCP: Neville Islas DO Status: REG ER - ER Visit Summary Date of Service: 03/06/18 Chief Complaint: Hypertension, abdominal pain History of Present Illness: The patient is a 73 M who says he has abdominal pain for 30 years. The real story is that he has at the stress lab to have a stress test today. His blood pressure was 230 systolic so they would not do his stress test. His PCP told him to come to the ER because of hypertension. The patient instead went to his office and they told him to come here. The patient states that his PCP told him that he needed a CAT scan of his abdomen because he is full of residue in his stomach that makes his blood pressure go up. Patient states he needs more HCl in his stomach balances pH. He states that by vomiting and belching he can regulate his blood pressure. However apparently it has not been working because he is on amlodipine metoprolol and lisinopril for his blood pressure. He then told the nurse that he took a pill of clonidine before walking into the ER. Physical Examination: Vital signs reviewed. HEENT exam unremarkable. Heart is regular rate and rhythm without murmurs. Lungs are clear to auscultation. Abdomen is soft and nontender. Extremities reveal no edema. Skin exam normal. Neurologic exam normal. Test Results: EKG is sinus rhythm with no ST changes. Labs are unremarkable except for sodium of 129, chloride of 96. Troponin is 0.041. Emergency Department Course and Treatment: Patient took the clonidine in the parking lot. His blood pressure now is 155/84. I spoke with his primary care physician who states the patient is very difficult to deal with for his blood pressure. Patient will be discharged to take his home medications and follow-up with his PCP Treatment Plan: [] Disposition: Discharge Impression: Hypertension This note was generated with Check-Cap dictation software. It may contain incorrect words, spelling, and punctuation that were not noted in review of the chart prior to signing ED Disposition - Plan for ED Patient: Chief Complaint: Abd Pain Referrals: Neville Islas, DO [Primary Care Provider] - What to do if you have Problems For any increased pain, shortness of breath, bleeding, nausea or vomiting, chest pain, or any unexpected problems, contact your Primary Care Provider. Call [facility] ([phone]) or report to the closest Emergency Room. Call 911 if necessary. 03/06/18 1172 <Electronically signed by Jean Garcia MD> Date Jean Radha DAVIS Cosigner Signature (If Indicated): Date CC: Neville Islas DO CBC W/DIFF, AUTOMATED Collected: 03/06/2018 Status: F Source: SCOT 2:50 PM [facility] [place] REPOSITORY TYPE CODE TESTS RESULT OUT OF RANGE REFERENCE UNITS LAB L100.1000 4.4-11.0 K/mm3 Normal WBC 5.1 LAB L100.1200 4.6-6.2 M/mm3 Low RBC 4.21 LAB L100.1300 13.0-16.5 g/dl Normal HGB 13.1 LAB L100.1400 40-54 % Low HCT 38.1 LAB L100.1500 80-94 fL Normal MCV 90.5 LAB L100.1600 27.0-32.0 pg Normal MCH 31.1 LAB L100.1700 32-36 g/gl Normal MCHC 34.4 LAB L100.1810 11.6-14.6 % Normal RDW CV 12.6 LAB L100.1820 35.1-43.9 fl Normal RDW SD 41.4 LAB L100.1900 150-450 K/mm3 Normal PLT 234 LAB L100.2000 6.2-12.0 fl Normal MPV 9.0 LAB L100.2100 47-70 % Normal NEUT% 64.9 LAB L100.2200 19-41 % Normal LY% 22.4 LAB L100.2300 0-10 % Normal MONO% 9.3 LAB L100.2400 0-5 % Normal EO% 3.0 LAB L100.2500 0-1 % Normal BASO% 0.2 LAB L100.2550 0.0-0.9 % Normal IM GRAN % 0.200 Result Comment: IG% - Immature Granulocytes (promyelocytes, myelocytes and metamyelocytes) > 1% indicates that a LEFT SHIFT is Present. LAB L100.2620 2.0-7.7 X10 3/uL Normal Absolute Neut 3.3 LAB L100.2720 0.83-4.51 X10 3/ul Normal Absolute Lymph 1.14 Performed By: #### L100.0100 #### [facility] [address] [place], [address] BASIC METABOLIC Collected: 03/06/2018 Status: F Source: [place] PROFILE (BMP) 2:50 PM [facility] [place] REPOSITORY TYPE CODE TESTS RESULT OUT OF RANGE REFERENCE UNITS LAB L501.0100 74-106 mg/dL High GLU 108 Result Comment: Fasting Glucose result from 100 to 125 mg/dL suggests IMPAIRED HOMEOSTASIS per A.D.A. criteria. Please note revised GLUCOSE reference range effective 2017. LAB L501.1000 7-18 mg/dL Normal BUN 17 LAB L501.1100 0.70-1.30 mg/dL Normal CREAT,SERUM 1.05 Result Comment: The validity of the calculated GFR AND GFRAA in patients over 70 years has not been determined. Clinical correlation is essential. LAB L501.1110 >60 mL/min Normal EST GFR 73 Result Comment: Non- GFR Calc LAB L501.1115 >60 mL/min Normal EST GFR - AA 89 Result Comment: GFR Calc LAB L501.1255 ml/min Normal Estimated CRCL 57.71 LAB L501.1300 10-20 RATIO Normal BUN/CRE 16.2 LAB L501.2200 8.5-10 mg/dL Normal .1 CA 8.8 LAB L501.5300 136-14 mmol/L Low 5 NA 129 LAB L501.5600 3.5-5. mmol/L Normal 1 K 4.3 LAB L501.5900 98-107 mmol/L Low CL 96 LAB L501.6100 21.0-3 mmol/L Normal 2.0 CO2 27.0 LAB L501.6200 5-15 Normal GAP 6 Performed By: #### L500.2500, L501.4010 #### [facility] [address] [place], [address] TROPONIN-I Collected: 03/06/2018 Status: F Source: SCOT 2:50 PM [facility] [place] REPOSITORY TYPE CODE TESTS RESULT OUT OF RANGE REFERENCE UNITS LAB L501.4010 <0.045 ng/mL Normal 0.041 TROPONIN-I Result Comment: TROPONIN-I EXPECTED VALUES <0.045 Negative 0.045 - 0.590 Consistent with Cardiac Damage > OR = 0.600 Critical Value Not every elevated troponin is indicative of NE. These values should be used with clinical judgement in examining the patient's clinical picture for diagnosis. To establish a diagnosis of NE versus myocardial injury, there must be a demonstrated rise and/or fall in the troponin values, in addition to ischemic symptoms, EKG changes, new regional wall motion abnormality, and/or angiographical evidence. PLEASE NOTE: REFERENCE RANGES EDITED 17 Performed By: #### L500.2500, L501.4010 #### [facility] [address] [facility] [place], [address] LUNG Observed: 03/01/2018 Status: F Source: [place] SCREENING 12:05 PM [facility] [place] REPOSITORY [facility] Imaging Services [address] [place] [address] Lung Screening MR#: [id number] Acct: [id number] Name: CHRISJARED L Rep #: [id number] : 1945 M 72 From: Dave Quiroga DO PCP: Neville Islas DO Status: REG CLI Study: Low Dose CT Lung Screening Date of Exam: 03/01/18 Exam# [id number] Ordering Dr: Neville Islas DO STUDY: LOW DOSE CT LUNG CANCER SCREENING REASON FOR EXAM: Male, 72 years old. Current smoker with a greater than 50 pack-year history. Cough with occasional bloody sputum. No family history. RADIATION DOSAGE (If Supplied By Facility): CTDIvol = ( 2.55 ) mGy, DLP = ( 93.47 ) mGycm TECHNIQUE: No contrast was administered. Low dose technique was utilized (average mAS-38 and kVp 120). 1.25 mm axial source images with a slice interval of 1.25- mm were reconstructed in lung windows. 2.5 mm axial source images with a slice interval of 2.5-mm were reconstructed in lung windows. 5.0 mm axial source images with a slice interval of 5.0-mm were reconstructed in soft tissue windows. Nodule measured using lung windows on PACS and/or independent workstation with automated measurement of minimum and maximum diameter. Nodule measurement reported as average diameter rounded to the nearest whole number. Growth is defined as an increase ins size of greater than 1.5 mm. COMPARISON: Chest, November 16, 2016. NODULES: Nodule #: 1 Density: Solid Lung location: Left upper lobe lobe: Pleural-based Location in series: Series Number: 1002 Image: 47 Size - D1 x D2 mm: 1.3 x 1.1 mm: 1.3 cm average diameter Margin: Irregular Shape: Triangular Calcification: No Fat: No Temporal comparison: Stable Nodule #: 2 Density: Solid Lung location: Left upper lobe: Pleural-based Location in series: Series Number: 1002 Image: 7 Size - D1 x D2 mm: 5 x 4 mm: 5 mm average diameter Margin: Smooth Shape: Interval Calcification: Yes Fat: No Temporal comparison: Stable Nodule #: 3 Density: Solid Lung location: Left lower lobe: 0.3 cm from pleura Location in series: Series Number: 1002 Image: 98 Size - D1 x D2 mm: 5 x 3 mm: 5 mm average diameter Margin: Smooth Shape: Oval Calcification: No Fat: No Temporal comparison: None Nodule #: 4 Density: Solid Lung location: Left lower lobe: 3.6 cm from pleura Location in series: Series Number: 1002 Image: 197 Size - D1 x D2 mm: 5 x 5 mm: 5 mm average diameter Margin: Smooth Shape: Rounded Calcification: Yes Fat: No Temporal comparison: Stable Total lung nodules (excluding granulomas): 2 Emphysema: There are diffuse emphysematous changes. There is marked scarring in both apices most marked on the left. This extends downward includes the large nodule seen in the left lung apex which may represent focal scarring. Endobronchial lesion: None Aorta: There is atherosclerotic changes of the thoracic aorta without aneurysm. Coronary arteries: There are coronary artery calcifications. Heart: The heart is normal in size. Pulmonary artery: Mediastinal nodes: There are multiple calcified and noncalcified mediastinal and hilar lymph nodes. Other chest and abdominal findings: There are degenerative changes of the thoracic spine. CT/Low Dose CT Lung Screening IMPRESSION: Lung-RADS category 4A - Screening at 3 months with LDCT or evaluation with PET/CT may be used. IMPORTANT NOTES FOR USE: ACR Lung-RADS Version 1.0 Assessment Categories Release Date: November 26, 2013 Category: Coded 0-4 bases on nodule(s) with highest degree of suspicion. Negative screen is defined as categories 1 and 2; a positive screen is defined as categories 3 and 4. Category 3 and 4A nodules that are unchanged on interval CT should be coded as category 2, and individuals returned to screening in 12 months. Category 4X: Category 3 or 4 nodules with additional imaging findings that increase the suspicion of lung cancer, such as spiculation, GGN that doubles in size in 1 year, enlarged lymph notes, etc. Category Modifiers: S (significant finding unrelated to lung cancer) and C (prior history of treated lung cancer) may be added to the 0-4 Lung-RADS Electronically Signed: Dave Quiorga DO at 17:00 EDT Tel [phone], Service support , CC: Neville Islas DO Gas Burner Operator: Signed TROPONIN-I Collected: 02/24/2018 Status: F Source: CAMPTI 1:56 PM [facility] [place] REPOSITORY Order Comment: 'TROP' Serial specimen #1, #2, #3, or #4: 1 TYPE CODE TESTS RESULT OUT OF RANGE REFERENCE UNITS LAB L501.4010 <0.045 ng/mL Normal 0.037 TROPONIN-I Result Comment: TROPONIN-I EXPECTED VALUES <0.045 Negative 0.045 - 0.590 Consistent with Cardiac Damage > OR = 0.600 Critical Value Not every elevated troponin is indicative of NE. These values should be used with clinical judgement in examining the patient's clinical picture for diagnosis. To establish a diagnosis of NE versus myocardial injury, there must be a demonstrated rise and/or fall in the troponin values, in addition to ischemic symptoms, EKG changes, new regional wall motion abnormality, and/or angiographical evidence. PLEASE NOTE: REFERENCE RANGES EDITED 17 Performed By: #### L501.4010 #### [facility] [address] [place], [place], [address] URINALYSIS, COMPLETE Collected: 12/29/2017 Status: F Source: CAMPTI 2:58 PM [facility] [place] REPOSITORY Order Comment: How was Urine Obtained? CLEAN CATCH TYPE CODE TESTS RESULT OUT OF RANGE REFERENCE UNITS LAB L400.3000 Yellow COLOR Normal Yellow LAB L400.3050 Clear Normal CLARITY Clear LAB L400.3200 Normal mg/dl Normal GLUCOSE, UR Normal LAB L400.3300 Negative mg/dL Normal BILIRUBIN URINE Negative LAB L400.3400 Negative mg/dl Normal KETONE UR Negative LAB L400.3465 1.002-1.030 Normal SP.GR. DIPSTX 1.005 LAB L400.3550 5.0 - 8.0 pH UR Normal 6.5 LAB L400.3600 Negative mg/dl PROT Normal DIPSTX Negative LAB L400.3700 Normal mg/dl Normal UROBILI Normal LAB L400.3750 Negative Normal NITRITE UR Negative LAB L400.3780 Negative /ul Normal OCCULT BLOOD-UR Negative LAB L400.3800 Negative /ul LEUK Normal ESTERASE Negative LAB L400.4050 0-5 /hpf WBC 0 Normal SEEN LAB L400.4100 0-5 /hpf 0 Normal RBC-UA SEEN LAB L400.4150 0-5 /hpf SQUAM 0 Normal EPI SEEN LAB L400.4300 None Seen /hpf 0 Normal BACTERIA SEEN LAB L400.4350 <or=2+ /hpf 0 Normal MUCUS, URINE SEEN Performed By: #### L400.0001 #### [facility] [address] [place], [place], [id number] CBC-COMPLETE BLOOD CNT Collected: 12/29/2017 Status: F Source: CAM[place]I NO DIFF 2:58 PM [facility] [place] REPOSITORY TYPE CODE TESTS RESULT OUT OF RANGE REFERENCE UNITS LAB L100.1000 4.4-11.0 K/mm3 Normal WBC 6.2 LAB L100.1200 4.6-6.2 M/mm3 Low RBC 4.20 LAB L100.1300 13.0-16.5 g/dl Normal HGB 13.2 LAB L100.1400 40-54 % Low HCT 38.6 LAB L100.1500 80-94 fL Normal MCV 91.9 LAB L100.1600 27.0-32.0 pg Normal MCH 31.4 LAB L100.1700 32-36 g/gl Normal MCHC 34.2 LAB L100.1810 11.6-14.6 % Normal RDW CV 12.5 LAB L100.1820 35.1-43.9 fl Normal RDW SD 42.0 LAB L100.1900 150-450 K/mm3 Normal PLT 234 LAB L100.2000 6.2-12.0 fl Normal MPV 9.8 Performed By: #### L100.0500 #### [facility] [address] [place], [place], [address] RENAL PROFILE Collected: 12/29/2017 Status: F Source: SCOT 2:58 PM [facility] [place] REPOSITORY TYPE CODE TESTS RESULT OUT OF RANGE REFERENCE UNITS LAB L501.0100 74-106 mg/dL Normal GLU 87 Result Comment: Please note revised GLUCOSE reference range effective 2017. LAB L501.1000 7-18 mg/dL Normal BUN 15 LAB L501.1100 0.70-1.30 mg/dL Normal CREAT,SERUM 1.08 Result Comment: The validity of the calculated GFR AND GFRAA in patients over 70 years has not been determined. Clinical correlation is essential. LAB L501.1110 >60 mL/min Normal EST GFR 71 Result Comment: Non- GFR Calc LAB L501.1115 >60 mL/min Normal EST GFR - AA 86 Result Comment: GFR Calc LAB L501.1300 10-20 RATIO Normal BUN/CRE 13.9 LAB L501.1800 3.2-5.0 g/dL Normal ALB 3.7 LAB L501.2200 8.5-10.1 mg/dL CA Normal 8.9 LAB L501.2300 2.5-4.9 mg/dL Normal PHOS 3.2 LAB L501.5300 136-145 mmol/L NA Normal 139 LAB L501.5600 3.5-5.1 mmol/L K Normal 4.1 LAB L501.5900 98-107 mmol/L CL Normal 103 LAB L501.6100 21.0-32.0 mmol/L Normal CO2 27.0 Performed By: #### L500.3600, L503.6075, L503.6150 #### [facility] [address] [place], [place], [address] IRON BINDING Collected: 12/29/2017 Status: F Source: SCOT CAPACITY,TOTAL 2:58 PM [facility] [place] REPOSITORY TYPE CODE TESTS RESULT OUT OF RANGE REFERENCE UNITS LAB L503.6075 250-450 ug/dL Normal TIBC 284 Performed By: #### L500.3600, L503.6075, L503.6150 #### [facility] [address] [place], [address] IRON Collected: 12/29/2017 Status: F Source: SCOT 2:58 PM [facility] REPOSITORY TYPE CODE TESTS RESULT OUT OF RANGE REFERENCE UNITS LAB L503.6150 65-175 ug/dL Normal IRON 73 Performed By: #### L500.3600, L503.6075, L503.6150 #### [facility] [address] [place], [address] ALLERGIES ALLERGIES DATE TYPE / CODE NAME / CODE REACTION SEVERITY SOURCE 11/15/2016 Drug No Known Unknown [facility] Allergy/4160 Allergies/F00 [facility] 26966(SNOMED [id number](RXNOR Repository CT) M) ENCOUNTERS ENCOUNTERS ADMIT/DISCHARGE ACCOUNT ADMITTING ENCOUNTER LOCATION SOURCE NUMBER CLASS 08/17/2018 [id number] Ambulatory [place] [facility] Hospital ing:CVS Repository 07/26/2018 [id number] Ambulatory [place] [facility] 4 [facility] ing:LAB Repository 06/21/2018 [id number] Ambulatory [place] 8 [facility] Hospital ing:US Repository 06/19/2018 [id number] Ambulatory BMSBuilding:W [facility] 2 [facility] Repository 06/19/2018 [id number] Ambulatory [place] 2 [facility] Hospital ing:CVS Repository 06/13/2018 [id number] Ambulatory [place] 8 [facility] Hospital ing:CT Repository 03/15/2018 [id number] Ambulatory [place] 0 [facility] Hospital ing:CT Repository 03/07/2018 [id number] Ambulatory [place] 1 [facility] Hospital ing:LAB Repository 03/06/2018/ [id number] Emergency [place] 8 8 [facility] ing:ED Repository 03/06/2018 [id number] Ambulatory [place] 9 [facility] Hospital ing:CVS Repository 03/01/2018 [id number] Ambulatory [place] 4 [facility] ing:CT Repository 02/24/2018 [id number] Ambulatory [place] 9 [facility] ing:BFHLAB Repository 12/29/2017 [id number] Ambulatory [place] 8 [facility] ing:LAB Repository PAYERS PAYERS ENCOUNTER GUARANTOR PAYER SUBSCRIBER SOURCE 08/17/2018 JARED Rodrigues Primary NOT GIVENUNK [place] [id number] Insurance:SELF PAY [facility] Number: Effective Repository [phone]: (330) Date:2018-08-08 (HP) 07/26/2018 JARED Rodrigues Primary NOT GIVENUNK [place] [id number] Insurance[place] [facility] Number: Effective Repository [phone]: (330) Date:2018-07-26 (HP) 06/21/2018 JARED Rodrigues Primary NOT GIVENUNK [place] [id number] Insurance[place] [facility] Number: Effective Repository [phone]: (330) Date:2018-06-15 () 06/19/2018 JARED Rodrigues Primary NOT GIVENUNK [place] [id number] Insurance:[place] [facility] Number: Effective Repository [phone]: (330) Date:2018-06-19 (HP) 06/19/2018 JARED Rodrigues Primary NOT GIVENUNK [place] [id number] Insurance[place] [facility] Number: Effective Repository [phone]: (330) Date:2018-06-14 (HP) 06/13/2018 JARED L Primary NOT GIVENUNK [place] [id number] Insurance[place] [facility] Number: Effective Repository [phone]: (330) Date:2018-06-08 (HP) 03/15/2018 Jared L Primary NOT GIVENUNK [place] [id number] Insurance:SELF PAY [facility] Number: Effective Repository [phone]: (330) Date:2018-03-07 (HP) 03/07/2018 JARED L Primary NOT GIVENUNK [place] [id number] Insurance[place]SELF [place] [facility] Number: Effective Repository [phone]: (330) Date:2018-03-07 (HP) 03/06/2018 Jared L Primary NOT GIVENUNK [place] [id number] Insurance:SELF [place] [facility] Number: Effective Repository [phone]: (330) Date:2018-03-06 (HP) 03/06/2018 Jared L Primary NOT GIVENUNK [place] [id number] Insurance:SELF [place] [facility] Number: Effective Repository [phone]: (330) Date:2018-02-28 () 03/01/2018 Jared L Primary NOT GIVENUNK [place] [id number] Insurance:SELF PA[place] [facility] Number: Effective Repository [phone]: (330) Date:2018-02-28 () 02/24/2018 Jared L Primary NOT GIVENUNK Delta [id number] Insurance:SELF PAY [facility] Number: Effective Repository [phone]: (330) Date:2018-02-24 () 12/29/2017 Jared L Primary NOT GIVENUNK Delta [id number] Insurance:SELF PAY [facility] Number: Effective Repository [phone]: (330) Date:2017-12-29 ()
== END ==
PROVIDERS: Family Provider Family Medicine; PCP Family Medicine; Referring Provider Family Medicine; Visit Provider Family Medicine
DX: R07.9 Chest pain, unspecified (principal); R06.09 Other forms of dyspnea
CPT/HCPCS: 78452; 93017; A9500; A4216; J2785

== ENCOUNTER → 2018-09-07 11:53 | Outpatient (CLI) | payer SELFPAY | PROVIDERS: Family Provider Family Medicine; PCP Family Medicine; Visit Provider Family Medicine | DX: R10.13 Epigastric pain (principal) ==

== ENCOUNTER → 2019-02-19 | Outpatient (CLI) | payer SELFPAY ==
[2019-02-19 17:36] LABS: ALB/GLOB Ratio 1.1 RATIO (0.9-2.4); AST(SGOT) 28 U/L (15-37); Alanine Aminotransfer ALT/SGPT 35 U/L (16-61); Albumin, Serum 3.8 g/dL (3.2-5.0); Alkaline Phosphatase 75 U/L (45-117); Anion Gap 8 (5-15); BUN 17 mg/dL (7-18); BUN/Creat Ratio 17.4 RATIO (10-20); Calcium,Total 8.9 mg/dL (8.5-10.1); Chloride 103 mmol/L (98-107); Creatinine, Serum 0.98 mg/dL (0.70-1.30); EST Glomerular Filtration Rate 80 mL/min (>60); Est Glom Filt Rate - Afr Amer 96 mL/min (>60); Globulin 3.5 g/dL (2.2-4.2); Glucose 97 mg/dL (74-106); Magnesium 1.9 mg/dL (1.6-2.6); Potassium 4.3 mmol/L (3.5-5.1); Protein, Total 7.3 g/dL (6.4-8.2); Sodium Level 138 mmol/L (136-145)
[2019-02-21 20:07] LABS: Endomysial Antibody IgA Negative (Negative)
[2019-02-22 12:51] LABS: Immunoglobulin A 104 mg/dL (61-437); t-Transglutaminase IgA <2 U/mL (0-3)
== END | disposition home or self-care (01) ==
LOC: LAB.FUTURE 15:47
PROVIDERS: Family Provider Family Medicine; PCP Family Medicine; Visit Provider Family Medicine
DX: R10.9 Unspecified abdominal pain (principal); R35.0 Frequency of micturition
CPT/HCPCS: 36415; 80053; 82784; 83516; 83735; 86255

== ENCOUNTER → 2023-01-25 | Outpatient (CLI) | payer SELFPAY ==
[2023-01-25 14:50] LABS: Absolute Lymphocyte Count 2.09 X10^3/uL (0.83-4.51); Absolute Neutrophil Count 3.6 X10^3/uL (2.0-7.7); Basophil# 0.04 X10^3/uL; Basophil% 0.6 % (0-1); Eosinophil# 0.41 X10^3/uL; Hemoglobin 14.2 g/dL (13.0-16.5); Lymphocyte # 2.09 X10^3/ul (0.83-4.51); Lymphocyte % 30.4 % (19-41); Mean Corpuscular Hgb 30.6 pg (27.0-32.0); Mean Corpuscular Volume 92.7 fL (80-94); Monocyte# 0.71 X10^3/uL; Monocyte% 10.3 % (0-10); NRBC Flagged by Analyzer 0 % (0-5); Neutrophil % 52.4 % (47-70); Platelet Count 242 K/mm3 (150-450); RBC Distribution Width CV 12.7 % (11.6-14.6); RBC Distribution Width SD 43.2 fl (35.1-43.9); Red Blood Count 4.64 M/mm3 (4.6-6.2); White Blood Count 6.9 K/mm3 (4.4-11.0)
[2023-01-25 15:42] LABS: Anion Gap 4 (5-15); BUN 22 mg/dL (7-18); BUN/Creat Ratio 17.7 RATIO (10-20); Calcium,Total 9.3 mg/dL (8.5-10.1); Chloride 106 mmol/L (98-107); Creatinine, Serum 1.24 mg/dL (0.70-1.30); EST Glomerular Filtration Rate 60 mL/min (>60); Est Glom Filt Rate - Afr Amer 72 mL/min (>60); Glucose 98 mg/dL (74-106); Magnesium 2.3 mg/dL (1.6-2.6); Potassium 4.2 mmol/L (3.5-5.1); Sodium Level 138 mmol/L (136-145)
== END | disposition home or self-care (01) ==
LOC: BFHLAB 14:03
PROVIDERS: PCP Nurse Practitioner Family; Referring Provider Nurse Practitioner Family; Visit Provider Nurse Practitioner Family
DX: E86.0 Dehydration (principal); I10 Essential (primary) hypertension
CPT/HCPCS: 36415; 80048; 83735; 85025

== ENCOUNTER 2023-08-15 14:36 | Observation (INO) | payer MEDICARE, SELFPAY ==
[2023-08-15] VITALS (7 sets, daily range): BP systolic 163–191; BP diastolic 69–96; PULSE 68–71; RESP 15–19; TEMP 35.3–36.4; O2SAT 98–100; BMI 27.3; BMI 25.5
--- NOTE | 2023-08-15 18:23 | ED.RN ---
Patient is complaining of being off balance and disorientation x 3-4 days with some dizziness. Patient states that the last time this happened his electrolytes were off. Patient also says that he has high BP and that was caused by digestive issues. Patient has changed his story 2-3 times since he has been here. Patient keeps going back to his digestive issues causing all of this. Patient is walking and talking with no issues. Patient wants magnesium checked.
--- NOTE | 2023-08-15 18:46 | EKG12_ITS ---
Test Reason : AM EKG Blood Pressure : / mmHG Vent. Rate : 072 BPM Atrial Rate : 072 BPM P-R Int : 176 ms QRS Dur : 094 ms QT Int : 412 ms P-R-T Axes : 039 020 076 degrees QTc Int : 451 ms Normal sinus rhythm Incomplete right bundle branch block Borderline ECG When compared with ECG of 15-AUG-2023 23:12, MANUAL COMPARISON REQUIRED, DATA IS UNCONFIRMED Confirmed by CHRISTIE DAVIS, DONAVAN ([id number]), index editor MEHDI LOPEZ ([id number]) on 08/16/2023 7:48:06 AM Referred By: Confirmed By:DONAVAN SORIANO MD
--- NOTE | 2023-08-15 18:49 | EX.ED.DYSGE1 ---
HPI <ONDINA Wan - Last Filed: 08/15/23 21:17> History of Present Illness Chief Complaint: Dizziness Narrative Narrative: 78-year-old male with PMH of HTN, CABG, CVA, hyponatremia presents with a feeling of disorientation that is occurred over the last 3 mornings after waking up. He states the last 2 mornings it was brief and resolved on its own. He cannot describe what it feels like but states it feels like my magnesium is low. Today the feeling has persisted all day since awakening so he presents for evaluation. This morning when it started he checked his blood pressure and systolic was 216 so he took a clonidine. He is prescribed amlodipine and metoprolol and he takes them whenever I remember. He took them prior to coming into the ED. He has no chest pain or shortness of breath. No fever, chills, or upper respiratory symptoms. No black or bloody stools or urinary symptoms. PFSH <ONDINA Wan - Last Filed: 08/15/23 21:17> PFSH Medical History CVA (cerebral vascular accident) Hypertension Hyponatremia Neuropathy TIA (transient ischemic attack) Tonsillectomy planned Vasectomy planned Home Medications amlodipine 5 mg tablet 5 mg PO DAILY 03/06/18 [History Last Taken Unknown] metoprolol tartrate 50 mg tablet 25 mg PO BID 03/06/18 [History Last Taken Unknown] Allergy/AdvReac Type Severity Reaction Status Date / Time No Known Allergies Allergy Verified 11/15/16 22:53 Surgical History History of appendectomy Hx of CABG Social History Smoking Status: Former smoker ROS <ONDINA Wan - Last Filed: 08/15/23 21:17> ROS ED ROS Narrative Constitutional: Negative for fever, chills, malaise. CVS: Negative for palpitations, chest pain, syncope. Respiratory: Negative for shortness of breath, cough. GI: Negative for abdominal pain, nausea, vomiting, diarrhea, melena, hematochezia. : Negative for dysuria. Neuro: Negative for headache. EXAM <ONDINA Wan - Last Filed: 08/15/23 21:17> Physical Exam Narrative Exam Narrative: CONST: Patient sitting in no acute distress. EYES: Normal inspection. PERRL, EOMI. NECK: Normal inspection. RESP: No respiratory distress, CTAB. CVS: Regular rate and rhythm, systolic murmur, no gallop. ABD: Soft and nontender, no guarding or rebound, nondistended. SKIN: Color normal, no rash, warm, dry, intact. EXTREMITIES: Normal appearance, no pedal edema. NEURO: Oriented x4. Face symmetric, cranial nerves II through XII intact. No upper or lower extremity drift, normal strength and sensation, normal finger-nose and [id number]. No aphasia or dysarthria. NIH is 0. PSYCH: Normal affect. Const Vital Signs: 08/15/23 14:37 08/15/23 18:07 08/15/23 18:23 Temperature 95.5 F L Temperature Source Temporal Pulse Rate 68 68 Respiratory Rate 16 15 Respiratory Effort Normal Non-Labored Respiratory Pattern Normal Blood Pressure 168/89 H 190/77 H Blood Pressure Mean 115 114 Pulse Ox 100 100 Oxygen Delivery Method Room Air Room Air 08/15/23 18:39 08/15/23 19:46 08/15/23 21:09 Temperature Temperature Source Pulse Rate 69 68 71 Respiratory Rate 16 19 H 18 Respiratory Effort Respiratory Pattern Blood Pressure 191/78 H 163/96 H 187/80 H Blood Pressure Mean 115 118 115 Pulse Ox 100 99 98 Oxygen Delivery Method Room Air Room Air Room Air 08/15/23 21:10 Temperature Temperature Source Pulse Rate 71 Respiratory Rate 18 Respiratory Effort Respiratory Pattern Blood Pressure 187/80 H Blood Pressure Mean 115 Pulse Ox 98 Oxygen Delivery Method <Dr. Jerry Hightower, DO - Last Filed: 08/16/23 00:12> Physical Exam Const Vital Signs: 08/15/23 14:37 08/15/23 18:07 08/15/23 18:23 Temperature 95.5 F L Temperature Source Temporal Pulse Rate 68 68 Respiratory Rate 16 15 Respiratory Effort Normal Non-Labored Respiratory Pattern Normal Blood Pressure 168/89 H 190/77 H Blood Pressure Mean 115 114 Pulse Ox 100 100 Oxygen Delivery Method Room Air Room Air 08/15/23 18:39 08/15/23 19:46 08/15/23 21:09 Temperature Temperature Source Pulse Rate 69 68 71 Respiratory Rate 16 19 H 18 Respiratory Effort Respiratory Pattern Blood Pressure 191/78 H 163/96 H 187/80 H Blood Pressure Mean 115 118 115 Pulse Ox 100 99 98 Oxygen Delivery Method Room Air Room Air Room Air 08/15/23 21:10 Temperature Temperature Source Pulse Rate 71 Respiratory Rate 18 Respiratory Effort Respiratory Pattern Blood Pressure 187/80 H Blood Pressure Mean 115 Pulse Ox 98 Oxygen Delivery Method MDM <ONDINA Wan - Last Filed: 08/15/23 21:17> [facility] Narrative Medical decision making narrative: History gathered from: Patient and spouse Patient reports 3 days of disorientation. He is very vague about his symptoms. He is awake alert with stable vital signs. BP 168/89 with other vitals normal vital signs. He states he took his amlodipine and metoprolol before arrival. Heart is regular rate and rhythm with a chronic holosystolic murmur. Lungs clear. Abdomen soft and nontender. Patient is rambling and alert and oriented x 2. He has no focal neurological deficits and NIH is 0. CBC and BMP are unremarkable. CXR and UA negative. CT brain shows no acute process. EKG is normal sinus rhythm with incomplete RBBB no acute ischemic changes. Troponin is elevated 84, delta pending. He has no symptoms of chest pain or shortness of breath but with his chronic high blood pressure this is concerning. 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 Case will be discussed with the hospitalist for admission. In discussion with the hospitalist he was given aspirin 325 mg but with no cardiac symptoms we do not think he needs anticoagulated. Plan will be for stress in the morning and further evaluation of altered mental status. Differential: Electrolyte abnormality, UTI, CVA External records reviewed Echo 06/19/2018 shows mild LVH, EF 60% Bicuspid aortic valve, mild aortic stenosis Stress test 08/17/2018 negative for acute ischemia Lab Data Attestation: I reviewed the patient's lab results. Labs: Laboratory Results - last 24 hr 08/15/23 08/15/23 08/15/23 18:35 18:58 20:40 WBC 6.2 RBC 4.26 L Hgb 13.2 Hct 38.6 L MCV 90.6 MCH 31.0 MCHC 34.2 RDW Std Deviation 43.6 RDW Coeff of Deepika 13.2 Plt Count 242 MPV 9.9 Immature Gran % (Auto) 0.300 Neut % (Auto) 62.4 Lymph % (Auto) 25.1 [place] % (Auto) 8.8 Eos % (Auto) 2.9 Baso % (Auto) 0.5 Absolute Neuts (auto) 3.9 Absolute Lymphs (auto) 1.56 Nucleated RBC % 0 Sodium 136 Potassium 4.7 Chloride 100 Carbon Dioxide 28.0 Anion Gap 8 BUN 20 H Creatinine 1.11 Estim Creat Clear Calc 52.21 Est GFR (MDRD) Af Amer 82 Est GFR (MDRD) Non-Af 68 BUN/Creatinine Ratio 18.0 Glucose 99 Calcium 9.3 Magnesium 2.0 Total Bilirubin 0.60 AST 29 ALT 31 Alkaline Phosphatase 97 Troponin I High Sens 84 H 85 H Total Protein 7.6 Albumin 3.9 Globulin 3.7 Albumin/Globulin Ratio 1.1 Urine Color Yellow Urine Clarity Sl. Cloudy Urine pH 8.0 Ur Specific [place] 1.010 Urine Protein Negative Urine Glucose (UA) Normal Urine Ketones Negative Urine Occult Blood Negative Urine Nitrite Negative Urine Bilirubin Negative Urine Urobilinogen Normal Ur Leukocyte Esterase Negative Urine RBC 0 SEEN Urine WBC 0 SEEN Ur Squamous Epith Cells 0-5 SEEN Urine Bacteria 0 SEEN Urine Mucus 0 SEEN Radiography Diagnostic Testing: Clinical Impression(s) from Imaging Studies Brain CT 08/15/23 18:54 IMPRESSION: Chronic ischemic changes. No CT evidence of acute intracranial pathology. Electronically Signed: Jonathan Marx DO at 19:30 EST , Chest X-Ray 08/15/23 19:20 IMPRESSION: Status post CABG. No acute findings. Electronically Signed: Jonathan Marx DO at 19:30 EST , ED attending interpretation of 1-view chest x-ray shows normal heart size, no acute infiltrate, edema, or effusion. EKG Initial EKG: Attestation: I personally reviewed and interpreted this EKG as follows: Interpretation: Sinus Rhythm, No Acute Injury Pattern and RBBB Comments: Normal sinus rhythm at 64 bpm Incomplete RBBB No STEMI criteria <Dr. Jerry Hightower DO - Last Filed: 08/16/23 00:12> [facility] Lab Data Labs: Laboratory Results - last 24 hr 08/15/23 08/15/23 08/15/23 18:35 18:58 20:40 WBC 6.2 RBC 4.26 L Hgb 13.2 Hct 38.6 L MCV 90.6 MCH 31.0 MCHC 34.2 RDW Std Deviation 43.6 RDW Coeff of Deepika 13.2 Plt Count 242 MPV 9.9 Immature Gran % (Auto) 0.300 Neut % (Auto) 62.4 Lymph % (Auto) 25.1 [place] % (Auto) 8.8 Eos % (Auto) 2.9 Baso % (Auto) 0.5 Absolute Neuts (auto) 3.9 Absolute Lymphs (auto) 1.56 Nucleated RBC % 0 Sodium 136 Potassium 4.7 Chloride 100 Carbon Dioxide 28.0 Anion Gap 8 BUN 20 H Creatinine 1.11 Estim Creat Clear Calc 52.21 Est GFR (MDRD) Af Amer 82 Est GFR (MDRD) Non-Af 68 BUN/Creatinine Ratio 18.0 Glucose 99 Calcium 9.3 Magnesium 2.0 Total Bilirubin 0.60 AST 29 ALT 31 Alkaline Phosphatase 97 Troponin I High Sens 84 H 85 H Total Protein 7.6 Albumin 3.9 Globulin 3.7 Albumin/Globulin Ratio 1.1 Urine Color Yellow Urine Clarity Sl. Cloudy Urine pH 8.0 Ur Specific [place] 1.010 Urine Protein Negative Urine Glucose (UA) Normal Urine Ketones Negative Urine Occult Blood Negative Urine Nitrite Negative Urine Bilirubin Negative Urine Urobilinogen Normal Ur Leukocyte Esterase Negative Urine RBC 0 SEEN Urine WBC 0 SEEN Ur Squamous Epith Cells 0-5 SEEN Urine Bacteria 0 SEEN Urine Mucus 0 SEEN Radiography Diagnostic Testing: Clinical Impression(s) from Imaging Studies Brain CT 08/15/23 18:54 IMPRESSION: Chronic ischemic changes. No CT evidence of acute intracranial pathology. Electronically Signed: Jonathan Marx DO at 19:30 EST , Chest X-Ray 08/15/23 19:20 IMPRESSION: Status post CABG. No acute findings. Electronically Signed: Jonathan Marx, at 19:30 EST , Treatment and Re-Evaluation :: ED attending note: I evaluated the patient in conjunction with the ODILON. I agree with his/her statements and above findings. I have personally performed a face to face assessment of the patient and have reviewed the ODILON Note. I performed a substantive portion of the visit including all aspects of the following. I personally saw the patient performed chart review, physical exam, reviewed labs, imaging (if obtained), and formulated a treatment and management plan. Brief history: 78-year-old male here with dizziness. Exam: Nursing triage notes reviewed, Vital signs reviewed Constitutional: please see mdm HENT: MMM Eyes: Pupils equal round and reactive to light, Extraocular muscles intact Neck: No stridor, no JVD, full neck ROM Lungs: Clear to auscultation, No wheezing or rales. No increased work of breathing, no conversational dyspnea, no accessory muscle use, no nasal flaring. No respiratory distress noted Heart: Regular rate and rhythm, No murmurs, No rubs and No gallops, 2+ distal pulses (radial, femoral, posterior tibial) in all extremities Abdomen: Soft, there is no tenderness, rigidity, rebound or guarding, no obvious peritoneal signs, no palpable pulsatile abdominal masses, no auscultated abdominal bruit : No CVAT Extremities: No edema Neuro: Alert and oriented x2 (baseline A&Ox3), cranial nerves II through XII are intact. No pain with extraocular muscle movement. There is negative test of skew. 5 of 5 strength in upper and lower extremities in flexion extension. Intact sensation to light touch in upper and lower extremity dermatomes. No truncal or extremity ataxia. No dysdiadochokinesia. Normal gait. 2+ reflexes in upper and lower extremities. No meningeal signs. Negative Babinski. NIH of 0. Skin: No rash or lesions noted MDM/plan: Chief Complaint: Dizziness External records reviewed: Normal stress test in 2019 Factors affecting care: Hypertension, hyperlipidemia MDM narrative: Patient was hemodynamically stable, afebrile, nontoxic-appearing. No acute focal neurologic deficits I have personally reviewed the patient's chest x-ray. Chest x-ray is unremarkable for pulmonary edema, pneumothorax, pneumonia or focal cardiopulmonary abnormality. EKG with normal sinus rhythm, normal axis, normal intervals, no ST or T wave changes to suggest ischemia. No evidence of WPW, [place], ARVD. Will dispo based on labs, images, shared decision-making. Shared decision making: I will have a discussion with the patient and or visitors regarding risk/benefits of further testing or admission. They will be made aware of of the risk/benefits inherent in this decision they will be given the opportunity to voice understanding. Discharge Plan Dx/Rx/DC Orders Clinical Impression: Acute alteration in mental status, Chronic hypertension, Elevated troponin Disposition Disposition: Acute Care Hospital [facility] Discharge Date/Time: 08/15/23 22:15 Capacity <ONDINA Wan - Last Filed: 08/15/23 21:17> [employer]aster [employer] Reflex Medical hold order details:: IF a medical hold is selected below, a suggested order for a MEDICAL HOLD will reflex upon signing the document. Next of kin: [place] law dictates a PRIORITY LIST for identifying legal decision-maker/legal next of kin in the following order (LNOK): 1st: The patient?s legal guardian, if any 2nd: The patient's spouse (if status is questionable, consult Risk Management) 3rd: The patient?s adult child(marek) (majority, if multiple children) 4th: The patient?s parents 5th: The patient?s adult siblings (majority, if multiple children siblings)
[2023-08-15 18:52] LABS: Absolute Lymphocyte Count 1.56 X10^3/uL (0.83-4.51); Absolute Neutrophil Count 3.9 X10^3/uL (2.0-7.7); Basophil# 0.03 X10^3/uL; Basophil% 0.5 % (0-1); Eosinophil# 0.18 X10^3/uL; Eosinophils% 2.9 % (0-5); Hematocrit 38.6 % (40-54); Hemoglobin 13.2 g/dL (13.0-16.5); Lymphocyte # 1.56 X10^3/ul (0.83-4.51); Lymphocyte % 25.1 % (19-41); Mean Corp Hgb Conc 34.2 g/dL (32-36); Mean Corpuscular Volume 90.6 fL (80-94); Mean Platelet Vol. 9.9 fl (6.2-12.0); Monocyte# 0.55 X10^3/uL; Monocyte% 8.8 % (0-10); NRBC Flagged by Analyzer 0 % (0-5); Neutrophil # 3.88 X10^3/uL (2.7-7.7); Neutrophil % 62.4 % (47-70); Platelet Count 242 K/mm3 (150-450); RBC Distribution Width CV 13.2 % (11.6-14.6); RBC Distribution Width SD 43.6 fl (35.1-43.9); Red Blood Count 4.26 M/mm3 (4.6-6.2); White Blood Count 6.2 K/mm3 (4.4-11.0)
--- NOTE | 2023-08-15 18:54 | CT_ITS ---
EXAM: CT HEAD WITHOUT INTRAVENOUS CONTRAST CLINICAL INDICATION: confusion TECHNIQUE: Multiple axial images were obtained of the head without intravenous contrast. This CT exam was performed using one or more of the following dose reduction techniques: automated exposure control, adjustment of the mA and/or kV according to patient size, and/or use of iterative reconstruction technique. COMPARISON: MRI brain, 10/31/2014 FINDINGS: BRAIN AND EXTRA-AXIAL SPACES: Chronic lacunar type infarct in the right kern radiata. There is non-specific periventricular hypoattenuation which is most commonly related to chronic microvascular ischemic disease in a patient of this age. There is no mass, mass-effect, or shift of the midline structures. No evidence of acute infarct or acute intracranial hemorrhage. There is no evidence of pathologic extra-axial fluid. There is no hydrocephalus. Patent basal cisterns. BONES/JOINTS: No significant abnormality. No discrete lytic or blastic abnormalities. VASCULATURE: Arteriosclerosis. SINUSES: No significant findings. MASTOID AIR CELLS: No significant effusion. ORBITS: No acute findings. CT/Brain/Head without Contrast IMPRESSION: Chronic ischemic changes. No CT evidence of acute intracranial pathology. Electronically Signed: Jonathan Marx DO at 19:30 EST ,
[2023-08-15 19:03] LABS: Bacteria 0 SEEN /hpf (None Seen); Mucous, Urine 0 SEEN /hpf (<or=2+); Red Blood Cells-Urine 0 SEEN /hpf (0-5); White Blood Cells 0 SEEN /hpf (0-5)
[2023-08-15 19:07] LABS: Color, Urine Yellow (Yellow); Glucose, Dipstick Normal (Normal); Ketone-Dipstick Negative (Negative); Leukocyte Esterase-Dipstick Negative /ul (Negative); Nitrite-Dipstick Negative (Negative); Occult Blood-Urine Negative /ul (Negative); Protein-Dipstick Negative (Negative); Urine Bilirubin Dipstick Negative (Negative); Urine Clarity Sl. Cloudy (Clear); Urine Urobilinogen Normal (Normal)
[2023-08-15 19:15] LABS: Squamous Epithelial Cells - UA 0-5 SEEN /hpf (0-5)
--- OUTSIDE RECORDS SUMMARY | 2023-08-15 19:18 | XMS RPT_ITS | CCD ---
Author Name Unknown Address [address] [place] [address] Organization [facility] Care Team Providers Care Information Technology Data Analyst Name Role Phone Roshan FARLEYNeville Primary Care Provider Medications Completed/Discontinued Medications Medication Drug Class(es) Dates Sig (Normalized) Sig (Original) amLODIPine 10 mg oral tablet (1 source) Dihydropyridine Calcium Channel Arianna Start: 07-23-2019 take 0.5 tablet by mouth once daily amLODIPine (NORVASC) 10 mg tablet Take 0.5 tablets by mouth once daily. 30 tablet 1 07/23/2019 Active Problems Active Problems Problem Classification Problem Date Documented Da te Episodic/Chronic Coronary atherosclerosis and other heart disease (1 source) Coronary atherosclerosis; Translations: [Atherosclerotic heart disease of [place] coronary artery without angina pectoris] Onset: 07-18-2019 07-23-2019 Chronic Essential hypertension (1 source) Hypertensive disorder; Translations: [Essential (primary) hypertension] Onset: 10-03-2009 07-23-2019 Chronic Other gastrointestinal disorders (1 source) Burping; Translations: [Eructation] 01-13-2010 Episodic Other gastrointestinal disorders (1 source) Abdominal bloating; Translations: [Abdominal distension (gaseous)] 01-13-2010 Episodic Unclassified (1 source) Transition of care; Translations: [Transition of care performed with sharing of clinical summary] Onset: 07-21-2019 07-23-2019 Past or Other Problems Problem Classification Problem Date Documented Da te Episodic/Chronic Abdominal pain (1 source) Right upper quadrant pain; Translations: [Right upper quadrant pain] Onset: 10-03-2009 10-03-2009 Episodic Administrative/social admission (1 source) Discharge status; Translations: [Encounter for administrative examinations, unspecified] Onset: 07-18-2019 07-18-2019 Episodic Esophageal disorders (1 source) Esophagitis; Translations: [Esophagitis, unspecified] Onset: 03-23-2010 03-23-2010 Episodic Gastritis and duodenitis (1 source) Acute gastritis; Translations: [Acute gastritis without bleeding] Onset: 03-23-2010 03-23-2010 Episodic Nonspecific chest pain (1 source) Chest pain; Translations: [Chest pain, unspecified] Onset: 07-18-2019 07-18-2019 Episodic Other circulatory disease (1 source) H/O: varicose veins; Translations: [Personal history of other diseases of the circulatory system] Onset: 07-18-2019 07-18-2019 Episodic Other circulatory disease (1 source) History of cerebrovascular accident; Translations: [Personal history of transient ischemic attack (TIA), and cerebral infarction without residual deficits] Onset: 07-18-2019 07-23-2019 Episodic Other gastrointestinal disorders (1 source) Flatulence, eructation and gas pain; Translations: [Flatulence] Onset: 03-23-2010 03-23-2010 Episodic Other nervous system disorders (1 source) Acute postoperative pain; Translations: [Other acute postprocedural pain] Onset: 07-19-2019 07-21-2019 Episodic Pleurisy; pneumothorax; pulmonary collapse (1 source) Atelectasis; Translations: [Atelectasis] Onset: 07-20-2019 07-21-2019 Episodic Results Test Name Value Interpretation Reference Range Facil ity Encounters Encounter Date Encounter Type Care Provider Facility Start: 05-19-2022 End: 05-19-2022 [facility] Facility:[facility] Start: 02-22-2022 Telephone encounter Beata Shin i, MD Work Phone: Radiology Procedures Date Procedure Procedure Detail Performing Clinician Start: 07-20-2019 Adult depression screening assessment Beata Herrera MD Work Phone: Plan of Treatment Date Care Activity Detail Author Start: 05-05-2023 DIABETES SCREEN DIABETES SCREEN [facility] Start: 04-01-2022 Influenza vaccination INFLUENZA (#1) [facility] Start: 08-01-2021 ADVANCE DIRECTIVE DISCUSSION ADVANCE DIRECTIVE DISCUSSION [facility] Start: 05-05-2021 Hepatitis B surface antibody level LDL CHOLESTEROL [facility] Start: 08-03-2020 ANNUAL PCP TEAM 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 HELPER ROCHELLE DISEASE VISIT ANNUAL PCP TEAM CHRONIC DISEASE VISIT [facility] Start: 07-20-2020 Adult depression scr eening assessment DEPRESSION SCREENING [facility] Start: 1994 SHINGRIX VACCINE (1 of 2) [place] GRIX VACCINE (1 of 2) [facility] Start: 1963 Urine microalbumin profile DTAP,TDAP ,TD (1 - Tdap) [facility] Start: 1962 BP CONTROLLED (<130/80) BP CONTROLLE D (<130/80) [facility] Start: 1962 HEPATITIS C SCREENING HEPATITIS C SC REENING [facility] Start: 1950 PNEUMOCOCCAL: 65+ (1 - PCV) PNEUMOCOCCAL: 65+ (1 - PCV) [facility] Start: 1944 COVID-19 VACCINE (#1) COVID-19 VACCI NE (#1) [facility] Social History Date Type Detail Facility Start: 05-07-2019 End: 08-01-1993 Tobacco smoking status NHIS Occasional tobacco smoker [facility] End: 08-01-1993 History of tobacco use Cigar Smoker [facility] Start: 05-07-2019 Cigarettes smoked cu rrent (pack per day) - Reported 1 [facility] Start: 05-07-2019 Tobacco use and exposure Smoke less tobacco non-user [facility] Start: 05-05-2020 Alcohol intake 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 quit cigarettes in 1993 [facility] Start: 1945 Sex Assigned At Not on file [facility] Medical Equipment Procedure Code Equipment Code Equipment Original Text Equipment Identifier Dates Shelbiana Thk1.65mm P tfe 4x.5in Cardiovascular Sterile - [id number] Start: 07-19-2019 Note 02-22-2022 Telephone Encounter - Michela Saucedo - 02/22/2022 3:14 PM EDT Note Date & Type Note Facility 02-22-2022 Miscellaneous Notes Patient arrived at the [facility] in [place], [place] requesting an appointment to become established with a new PCP in this region. The patient reports having similar symptoms in the right upper extremity that he experienced prior to his quintuple bypass surgery. He was provided the phone number and name of the cardiac surgeon and was scheduled to see Dr. Gray on 05/28/22. Please advise patient if he should follow up with portable grinding machine operator prior to PCP visit. 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 Advance Directive(s) 07/18/2019 4:40 PM Advance Directive(s) 07/12/2019 2:31 PM Advance Directive(s) 05/14/2019 8:30 AM Summary Purpose Family History No Family History Records Found Additional Source Comments Source Comments (unrecognize d section and content) In the event this informatio n is protected by the Federal Confidentiality of Alcohol and Drug Abuse Patient Records regulations: The Federal rules restrict any use of the information to criminally investigate or prosecute any alcohol or drug abuse patient.[facility] Reason for Visit (unrecogniz ed section and content) Care Teams (unrecognized sec tion and content) (unrecognized sect ion and content) No Status Records Found INFORMATION SOURCE (unrecogn ized section and content) FOR RECORDS PERTAINING TO PATIENTS WHO ARE OR HAVE BEEN ENROLLED IN A CHEMICAL DEPENDENCY/SUBSTANCEABUSE PROGRAM, SOME INFORMATION MAY BE OMITTED. This clinical summary was aggregated from multiple sources. Caution should be exercised in using it in the provision of clinical care. This summary normalizes information from multiple sources, and as a consequence, information in this document may materially change the coding, format and clinical context of patient data. In addition, data may be omitted in some cases. CLINICAL DECISIONS SHOULD BE BASED ON THE PRIMARY CLINICAL RECORDS. [employer] provides no warranty or guarantee of the accuracy or completeness of information in this document.
--- NOTE | 2023-08-15 19:20 | RAD_ITS ---
EXAM: XR CHEST, 1 VIEW CLINICAL INDICATION: weakness TECHNIQUE: Frontal view of the chest. COMPARISON: 11/16/2016 FINDINGS: LUNGS AND PLEURAL SPACES: No significant abnormality. No consolidation or edema. No pneumothorax. No effusion. HEART: Status post CABG. MEDIASTINUM: Central airways and mediastinal contour are unremarkable. BONES/JOINTS: Median sternotomy. No acute fracture. SOFT TISSUES: No significant abnormality. VASCULATURE: Atherosclerosis. RAD/Chest 1 View (Portable) IMPRESSION: Status post CABG. No acute findings. Electronically Signed: Jonathan Marx DO at 19:30 EST ,
[2023-08-15 19:24] LABS: ALB/GLOB Ratio 1.1 RATIO (0.9-2.4); AST(SGOT) 29 U/L (15-37); Alanine Aminotransfer ALT/SGPT 31 U/L (16-61); Albumin, Serum 3.9 g/dL (3.2-5.0); Alkaline Phosphatase 97 U/L (45-117); Anion Gap 8 (5-15); BUN 20 mg/dL (7-18); Calcium,Total 9.3 mg/dL (8.5-10.1); Chloride 100 mmol/L (98-107); Creatinine, Serum 1.11 mg/dL (0.70-1.30); EST Glomerular Filtration Rate 68 mL/min (>60); Est Glom Filt Rate - Afr Amer 82 mL/min (>60); Estimated Creatinine Clearance 52.21 ml/min; Globulin 3.7 g/dL (2.2-4.2); Glucose 99 mg/dL (74-106); Potassium 4.7 mmol/L (3.5-5.1); Protein, Total 7.6 g/dL (6.4-8.2); Sodium Level 136 mmol/L (136-145); Troponin-I HS 84 pg/mL (3.0-78.0)
[2023-08-15 21:08] LABS: Troponin-I HS 85 pg/mL (3.0-78.0)
--- NOTE | 2023-08-15 21:12 | PCM.HP.STD ---
[facility] - General General Date of Admission: 08/15/23 Date of Service: 08/15/23 Chief Complaint: Dizziness. [facility] Narrative JARED PEREZ, is a 78 M with a past medical history of essential hypertension, hyperlipidemia, overweight; with BMI of 27.4 present on admission, history of CAD; s/p CABG x 5 (2019), history of TIA/CVA, history of hyponatremia, OA and medical noncompliance who presents to [facility] ER complaining of dizziness. Mr. Carvajal is a tangential and suboptimal historian at this time however he reports his symptoms began approximately 3 days ago when he woke up in the morning feeling disoriented. He states that over the last 2 mornings the sensation resolved spontaneously on its own so he did not seek medical attention at that time. However, today the feeling persisted all day since awakening so he decided to come to the ER for further evaluation and treatment. He says he cannot precisely describe exactly what it feels like but he says he has had similar symptoms in the past with electrolyte abnormalities such as when his magnesium level was low. He also noted that his blood pressure was elevated in the 216 mmHg systolic range so he took a clonidine with patient chronically prescribed amlodipine and metoprolol and he stated to the ER provider that he takes them whenever he remembers - but he admits to taking both his metoprolol and amlodipine prior to arrival. He denies associated fevers, nausea, vomiting, shortness of breath, black stools, bloody stools or urinary symptoms but he does admit to intermittent chills with diaphoresis and transient RLE swelling that has now resolved. In the ER he was noted to have a mildly elevated first troponin of 84 ng/mL followed by a second slightly elevated troponin of 85 ng/mL with an elevated D-dimer of 0.79 present on admission along with a negative CTA of the head and a chest x-ray that revealed previous CABG but no acute findings. He was then admitted to the CDU under observation status to undergo cardiac stress testing in the a.m. for a stay that is expected to be less than 48 hours. [facility] Medical History (Updated 08/16/23 @ 00:[address] Darrel Carpenter DO) CVA (cerebral vascular accident) Hypertension Hyponatremia Neuropathy TIA (transient ischemic attack) Tonsillectomy planned Vasectomy planned Home Medications amlodipine 5 mg tablet 5 mg PO DAILY 08/06/18 [History Last Taken Unknown] metoprolol tartrate 50 mg tablet 25 mg PO BID 03/06/18 [History Last Taken Unknown] Allergy/AdvReac Type Severity Reaction Status Date / Time No Known Allergies Allergy Verified 11/15/16 22:53 Surgical History (Updated 08/16/23 @ 00:[address] Darrel Carpenter, DO) History of appendectomy Hx of CABG Social History Smoking Status: Former smoker ROS ROS Narrative Review of systems: General: Patient admits to chills with occasional diaphoresis. He denies fevers. HENT: Denies headache, denies stuffy nose, denies sore throat EYES: Denies changes in vision Resp: Denies cough, denies shortness of breath Cardiac: Denies chest pain or palpitations. GI: Denies abdominal pain, denies changes in bowel, had some nausea : Denies changes in urination Extremity: Denies swelling Musculoskeletal: Positive for mild residual right lower extremity swelling slightly worse than usual. Neuro: Denies any numbness/tingling but he does admit to chronic and unchanged mild difficulty with word finding. Heme: Denies any bleeding or bruising Skin: Denies rashes Psychiatric: No complaints voiced due to uncontrolled depression or anxiety. Endocrine: No polyuria, polydipsia or polyphagia. The rest of the 14 point ROS was negative except for positives in HPI. Vital Signs Vital Signs Vital Signs: 08/15/23 14:37 08/15/23 18:07 08/15/23 18:23 Temperature 95.5 F L Temperature Source Temporal Pulse Rate 68 68 Respiratory Rate 16 15 Respiratory Effort Normal Non-Labored Respiratory Pattern Normal Blood Pressure 168/89 H 190/77 H Blood Pressure Mean 115 114 Pulse Ox 100 100 Oxygen Delivery Method Room Air Room Air 08/15/23 18:39 08/15/23 19:46 08/15/23 21:09 Temperature Temperature Source Pulse Rate 69 68 71 Respiratory Rate 16 19 H 18 Respiratory Effort Respiratory Pattern Blood Pressure 191/78 H 163/96 H 187/80 H Blood Pressure Mean 115 118 115 Pulse Ox 100 99 98 Oxygen Delivery Method Room Air Room Air Room Air 08/15/23 21:10 Temperature Temperature Source Pulse Rate 71 Respiratory Rate 18 Respiratory Effort Respiratory Pattern Blood Pressure 187/80 H Blood Pressure Mean 115 Pulse Ox 98 Oxygen Delivery Method Weight Weight: 179 lb 14.355 oz Body Mass Index (BMI) 27.3 Physical Exam Const alert, oriented x3, no apparent distress, average body habitus and healthy appearing General Appearance: cooperative HEENT normocephalic, head/scalp atraumatic, hearing grossly normal bilaterally, moist oral mucous membranes and oropharynx normal Eyes PERRL and EOMs intact bilaterally Neck no lymphadenopathy, supple and no JVD Resp normal respiratory effort, no retractions, no use of accessory muscles and clear to auscultation bilaterally Cardio regular rate and regular rhythm GI normal to inspection, nondistended, normoactive bowel sounds, soft to palpation, non-tender and non-distended Results Medical Records Data Attestation: I reviewed the patient's medical records Lab / Micro Data Attestation: I reviewed the patient's lab results. 08/15/23 18:35 08/15/23 18:35 Labs: Laboratory Results - last 24 hr 08/15/23 18:35: WBC 6.2, RBC 4.26 L, Hgb 13.2, Hct 38.6 L, MCV 90.6, MCH 31.0, MCHC 34.2, RDW Std Deviation 43.6, RDW Coeff of Deepika 13.2, Plt Count 242, MPV 9.9, Immature Gran % (Auto) 0.300, Neut % (Auto) 62.4, Lymph % (Auto) 25.1, [place] % (Auto) 8.8, Eos % (Auto) 2.9, Baso % (Auto) 0.5, Absolute Neuts (auto) 3.9, Absolute Lymphs (auto) 1.56, Nucleated RBC % 0, Sodium 136, Potassium 4.7, Chloride 100, Carbon Dioxide 28.0, Anion Gap 8, BUN 20 H, Creatinine 1.11, Estim Creat Clear Calc 52.21, Est GFR (MDRD) Af Amer 82, Est GFR (MDRD) Non-Af 68, BUN/Creatinine Ratio 18.0, Glucose 99, Calcium 9.3, Magnesium 2.0, Total Bilirubin 0.60, AST 29, ALT 31, Alkaline Phosphatase 97, Troponin I High Sens 84 H, Total Protein 7.6, Albumin 3.9, Globulin 3.7, Albumin/Globulin Ratio 1.1 08/15/23 18:58: Urine Color Yellow, Urine Clarity Sl. Cloudy, Urine pH 8.0, Ur Specific Iaeger 1.010, Urine Protein Negative, Urine Glucose (UA) Normal, Urine Ketones Negative, Urine Occult Blood Negative, Urine Nitrite Negative, Urine Bilirubin Negative, Urine Urobilinogen Normal, Ur Leukocyte Esterase Negative, Urine RBC 0 SEEN, Urine WBC 0 SEEN, Ur Squamous Epith Cells 0-5 SEEN, Urine Bacteria 0 SEEN, Urine Mucus 0 SEEN 08/15/23 20:40: Troponin I High Sens 85 H Micro: [facility] Imaging Services [address] [place] [address] CTA Chest W/WO Contrast MR#: [id number] Acct: [id number] Name: JARED PEREZ Rep #: [id number] : 1945 M 78 From: Abran Fournier MD PCP: Dr. Neville Islas, Status: ADM IN Study: CTA Chest W/WO Contrast Date of Exam: 08/16/23 Exam# [id number] Ordering Dr: Darrel Carpenter DO STUDY: CTA CHEST REASON FOR EXAM: Male, 78 years old. rule out PE RADIATION DOSAGE (If Supplied By Facility): CTDIvol = ( 12.28 ) mGy, DLP = ( 449.98 ) mGycm TECHNIQUE: The examination was performed with the intravenous administration of IV 100mL Isovue-370. Post-processing of the angiographic images was performed, with multiplanar reformation and 3D reconstruction. Individualized dose optimization techniques were used for this CT. COMPARISON: Prior study dated: 06/13/2018 FINDINGS: PULMONARY ARTERIES: Normal enhancement of the main pulmonary artery and right and left pulmonary arteries. Normal enhancement of the bilateral peripheral pulmonary arteries. There is no demonstrated pulmonary embolism. AORTA: Normal thoracic aorta and visualized great vessels. There is no demonstrated aortic dissection. MEDIASTINUM: Prominent heart. No pericardial effusion. Dense coronary artery calcifications are present. Prominent subcarinal lymph node. No other lymphadenopathy. Calcified hilar nodes are seen. LUNGS/PLEURA: Normal visualized trachea and bronchi. The lungs are well expanded. Mild paraseptal emphysema at the lung apices. Pleural thickening at the upper lobes near the apices with some calcification. The appearance is similar to prior imaging. No pleural effusion. No pneumothorax. CHEST WALL: Normal chest wall structures. UPPER ABDOMEN: No acute abnormality in the visualized upper abdomen. Hepatic cyst in the right lobe. Mild thickening of the left adrenal gland is unchanged. OSSEOUS STRUCTURES: No acute or suspicious osseous abnormality. Mild changes of the spine. Status post median sternotomy. CT/CTA Chest W/WO Contrast IMPRESSION: No pulmonary embolism or other acute intrathoracic abnormality. Chronic pleural thickening at the lung apices with calcification. Evidence of previous granulomatous disease. Electronically Signed: Abran Fournier MD at 3:11 EST , CC: Dr. Darrel Carpenter DO; Dr. 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 No CT evidence of acute intracranial pathology. Electronically Signed: Jonathan Marx DO at 19:30 EST , Chest X-Ray 08/15/23 19:20 IMPRESSION: Status post CABG. No acute findings. Electronically Signed: Jonathan Marx DO at 19:30 EST , Assessment & Plan Assessment/Plan (1) Elevated troponin: (2) Hypertensive emergency without congestive heart failure: (3) Hx of CABG: (4) History of stroke: PLAN: Plan 1. Elevated troponins of 84 present on admission increasing to 85 on second check with elevated D-dimer of 0.79 present on admission in the setting of known coronary artery disease; status post CABG x 5 (2019) - Admit to CDU under observation status. Check nuclear stress test in the a.m. to evaluate for underlying ischemia. Check echocardiogram to evaluate left ventricular ejection fraction. Continue daily aspirin and give nitroglycerin as needed. Patient has no cardiac symptoms at this time. Checked d-dimer with recent RLE swelling and now we will check right lower extremity Doppler. CTA chest is negative for PE. Finally, if nuclear stress test is positive for ischemia or there are other compelling findings indicative of acute pathologic issues please consider formal cardiology consultation. 2. Hypertensive emergency with blood pressure of 216 mm Hg systolic just prior to admission likely causing #1 due to to suspected medical noncompliance - Continue amlodipine and metoprolol as previous plus give as needed IV hydralazine for systolic blood pressure greater than 160 mmHg. 3. Hyperlipidemia - Resume statin and check lipid profile in light of #1. 4. Overweight; with BMI of 27.4 present on admission - Weight loss will be recommended. Check TSH. 5. History of TIA/CVA - Noted. 6. History of hyponatremia - Stable with sodium of 136 mmol/L present on admission. 7. OA - Stable. Give Tylenol as needed. 8. DVT prophylaxis - Give one full dose of Lovenox and then decrease dose to 40 mg daily if cardiac workup outlined above is negative. Total time: Approximately 45 minutes. Charges/Coding Visit Charges OBSV E&M: 86279 Observ/hosp same date L1
[2023-08-15] MEDS: Aspirin 325 MG Tablet PO (21:23)
--- OUTSIDE RECORDS SUMMARY | 2023-08-15 21:37 | XMS RPT_ITS | CCD ---
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 Name Role Phone [facility] [...] Coronary atherosclerosis; Translations: [Atherosclerotic heart disease of [place] coronary artery without angina pectoris] Onset: 07-18-2019 [...] Care Provider Facility Start: 05-19-2022 End: 05-19-2022 [facility] Facility:[facility] Start: 02-22-2022 Telephone encounter Beata Shin i, MD Work Phone: Radiology Procedures Date Procedure Procedure Detail Performing Clinician Start: 07-20-2019 Adult depression screening assessment Beata Herrera MD Work Phone: Plan of Treatment Date Care Activity Detail Author Start: 05-05-2023 DIABETES SCREEN DIABETES SCREEN [facility] Start: 04-01-2022 Influenza vaccination INFLUENZA (#1) [facility] Start: 08-01-2021 ADVANCE DIRECTIVE DISCUSSION ADVANCE DIRECTIVE DISCUSSION [facility] Start: 05-05-2021 Hepatitis B surface antibody level LDL CHOLESTEROL [facility] Start: 08-03-2020 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 ROCHELLE DISEASE VISIT ANNUAL PCP TEAM CHRONIC DISEASE VISIT [facility] Start: 07-20-2020 Adult depression scr eening assessment DEPRESSION SCREENING [facility] Start: 1994 SHINGRIX VACCINE (1 of 2) [place] GRIX VACCINE (1 of 2) [facility] Start: 1963 Urine microalbumin profile DTAP,TDAP ,TD (1 - Tdap) [facility] Start: 1962 BP CONTROLLED (<130/80) BP CONTROLLE D (<130/80) [facility] Start: 1962 HEPATITIS C SCREENING HEPATITIS C SC REENING [facility] Start: 1950 PNEUMOCOCCAL: 65+ (1 - PCV) PNEUMOCOCCAL: 65+ (1 - PCV) [facility] Start: 1945 COVID-19 VACCINE (#1) COVID-19 VACCI NE (#1) [facility] Social History Date Type Detail Facility Start: 05-07-2019 End: 08-01-1993 Tobacco smoking status NHIS Occasional tobacco smoker [facility] End: 08-01-1993 History of tobacco use Cigar Smoker [facility] Start: 05-07-2019 Cigarettes smoked cu rrent (pack per day) - Reported 1 [facility] Start: 05-07-2019 Tobacco use and exposure Smoke less tobacco non-user [facility] Start: 05-05-2020 Alcohol intake 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 quit cigarettes in 1993 [facility] Start: 1945 Sex Assigned At Not on file [facility] Medical Equipment Procedure Code Equipment Code Equipment Original Text Equipment Identifier Dates [place] Thk1.65mm P tfe 4x.5in Cardiovascular Sterile - [id number] Start: 07-19-2019 Note 02-22-2022 Telephone Encounter - Michela Saucedo - 02/22/2022 3:14 PM EDT Note Date & Type Note Facility 02-22-2022 Miscellaneous Notes Patient arrived at the [facility] in [place], [place] requesting an appointment to become established [...] patient if he should follow up with crop or grain farmer prior to PCP visit. 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 [employer] provides no warranty or guarantee of the accuracy or completeness of information in this document.
--- NOTE | 2023-08-15 22:08 | ECHOD_ITS ---
Reason For Study: CHF Procedure This was a 2D Doppler, Color Flow transthoracic echocardiogram. Exam performed portable in patient room. Left Ventricle Normal LV size. Apical false tendon noted. The estimated ejection fraction is 65 %. Normal diastology for age. No regional wall motion abnormalities noted. Right Ventricle Normal RV size. Normal systolic function. Atria Normal left atrium. Normal right atrium. Mitral Valve The mitral valve is structurally normal. No prolapse or stenosis seen. Mild (1+) mitral valve insufficiency. Tricuspid Valve Normal tricuspid valve. Trivial tricuspid valve insufficiency. Right ventricular systolic pressure estimated to be 19 mmHg. Aortic Valve Moderate diffuse aortic valve thickening. Moderate diffuse aortic valve calcification. Moderate aortic stenosis. Peak aortic valve gradient 52 mmHg. Mean aortic valve gradient 32 mmHg. Pulmonic Valve Normal pulmonic valve. Great Vessels Normal aortic root. Pericardium/Pleural No pericardial effusion. MMode/2D Measurements & Calculations LVIDd: 3.7 cm IVSd: 1.6 cm LVOT diam: 2.3 cm LVIDs: 2.0 cm LVPWd: 1.2 cm LVOT area: 4.3 cm2 RVDd: 3.2 cm FS: 45.9 % Ao root diam: 3.1 cm LAV(MOD-bp): 57.9 ml LVAd ap4: 25.7 cm2 LAV(MOD-bp) Indexed: 30.2 ml/m2 LVLd ap4: 7.5 cm LAV(MOD-sp2): 55.0 ml EDV(MOD-sp4): 72.3 ml LAV(MOD-sp4): 47.4 ml EDV(sp4-el): 74.9 ml LVAs ap4: 13.6 cm2 LVLs ap4: 6.2 cm ESV(MOD-sp4): 25.9 ml ESV(sp4-el): 25.3 ml EF(MOD-sp4): 64.2 % EF(sp4-el): 66.2 % LVAd ap2: 26.1 cm2 SV(MOD-sp4): 46.4 ml SV(MOD-sp2): 48.4 ml LVLd ap2: 8.1 cm EDV(MOD-sp2): 68.8 ml EDV(sp2-el): 70.8 ml LVAs ap2: 11.9 cm2 LVLs ap2: 7.2 cm ESV(MOD-sp2): 20.4 ml ESV(sp2-el): 16.6 ml EF(MOD-sp2): 70.3 % SV(sp4-el): 49.6 ml LA dimension(2D): 3.9 cm LA A4 area: 15.8 cm2 RA A4 area: 11.6 cm2 TAPSE: 1.1 cm Time Measurements MV dec time: 0.25 sec Doppler Measurements & Calculations MV E max evangelist: 65.2 cm/sec Lat Peak E' Evangelist: 7.1 cm/sec Med Peak E' Evangelist: 4.5 cm/sec MV A max evangelist: 93.2 cm/sec E/E' lat: 9.2 E/E' med: 14.3 MV E/A: 0.70 Ao V2 max: 360.9 cm/sec LV V1 max: 94.7 cm/sec MV dec slope: 262.2 cm/sec2 Ao max P.3 mmHg LV V1 max P.6 mmHg Ao V2 mean: 268.0 cm/sec LV V1 mean P.9 mmHg Ao mean P.6 mmHg LV V1 mean: 66.6 cm/sec Ao V2 VTI: 82.1 cm LV V1 VTI: 22.6 cm AV (velocity ratio): 0.28 PAT(I,D): 1.2 cm2 PAT(V,D): 1.1 cm2 SV(LVOT): 97.4 ml PA V2 max: 107.7 cm/sec TR max evangelist: 202.7 cm/sec TR max P.4 mmHg ECHO/Echo Complete Interpretation Summary The estimated ejection fraction is 65 %. Mild (1+) mitral valve insufficiency. Moderate aortic stenosis. Ordering Physician: Darrel Carpenter Referring Physician: Neville Islas Performed By: Gabriella Álvarez RDCS
--- NOTE | 2023-08-15 23:06 | EKG12_ITS ---
Test Reason : ELEVATED TROP Blood Pressure : / mmHG Vent. Rate : 075 BPM Atrial Rate : 075 BPM P-R Int : 170 ms QRS Dur : 082 ms QT Int : 396 ms P-R-T Axes : 037 023 075 degrees QTc Int : 442 ms Normal sinus rhythm Normal ECG When compared with ECG of 15-AUG-2023 17:09, MANUAL COMPARISON REQUIRED, DATA IS UNCONFIRMED Confirmed by CHRISTIE DAVIS, DONAVAN ([id number]), book editor MEHDI LOPEZ ([id number]) on 08/16/2023 7:49:52 AM Referred By: DR Ellis Confirmed By:DONAVAN SORIANO MD
--- NOTE | 2023-08-15 23:22 | NURSING ---
Pt refusing to call when getting up d/t being shakey, attempted to educate pt, pt stated I will not call to get up and I will be up all night. Pt refusing lovenox, also attempted to provide education. Pt and asking very specific questions about stress test, informed this RN they may refuse. Educated that it is their right to refuse but the doctor can answer their questions specifically. and patient resting in room, no other needs at this time.
[2023-08-16] VITALS (8 sets, daily range): BP systolic 138–193; BP diastolic 69–94; PULSE 64–97; RESP 18; TEMP 36.2–36.7; O2SAT 98–100
[2023-08-16] MEDS: hydrALAZINE 20 MG/ML Vial 5 MG IV (00:04)
[2023-08-16] MEDS: 0.9% Saline Lock 10 ML Syringe IV (00:04)
[2023-08-16] MEDS: Enoxaparin 80 MG/0.8 ML Syringe SC (00:04)
--- NOTE | 2023-08-16 00:13 | VDLE_ITS ---
Reason For Study: Elevated D Dimer RIGHT LEFT GSV Harvested for CABG. GSV is normal. CFV is compressible, spontaneous, phasic, CFV is compressible, spontaneous, phasic, competent and demonstrates normal competent, and demonstrates normal augmentation. augmentation. FV is compressible, spontaneous, phasic, FV is compressible, spontaneous, phasic, competent and demonstrates normal competent and demonstrates normal augmentation. augmentation. POP V is compressible, spontaneous, phasic, POP V is compressible, spontaneous, phasic, competent and demonstrates normal competent and demonstrates normal augmentation. augmentation. T/P Trunk is compressible. T/P Trunk is compressible. PTV is compressible. PTV is compressible. RT PerV is compressible. LT PerV is compressible. Procedure Non vascularized area of mixed echogenicity This is a venous duplex using B-mode, color is noted in the Lt Pop Fossa measuring flow and spectral Doppler. approximately 4.03cm x 2.78cm. Exam performed in department. The exam was diagnostic. A preliminary report was called and/or faxed to E M ASSEMBLER responsible for patient. VL/Venous Duplex US - Elder Extrem Interpretation Summary Deep veins of the bilateral lower extremities are patent and compressible segme ntally. There is no evidence of bilateral lower extremity deep vein thrombosis. The bilateral great saphenous veins appear patent and compressible segmentally. Non vascularized area of mixed echogenicity is noted in the left popliteal becky a measuring approximately 4.03cm x 2.78cm. Ordering Physician: Darrel Carpenter Referring Physician: Neville Islas Performed By: Huseyin Lopez RVT
[2023-08-16 00:55] LABS: Troponin-I HS 96 pg/mL (3.0-78.0)
[2023-08-16 01:14] LABS: D-Dimer Quantitative (DVT/PE) 0.79 FEU/ug/m (0.27-0.49)
--- NOTE | 2023-08-16 01:26 | CT_ITS ---
STUDY: CTA CHEST REASON FOR EXAM: Male, 78 years old. rule out PE RADIATION DOSAGE (If Supplied By Facility): CTDIvol = ( 12.28 ) mGy, DLP = ( 449.98 ) mGycm TECHNIQUE: The examination was performed with the intravenous administration of IV 100mL Isovue-370. Post-processing of the angiographic images was performed, with multiplanar reformation and 3D reconstruction. Individualized dose optimization techniques were used for this CT. COMPARISON: Prior study dated: 06/13/2018 FINDINGS: PULMONARY ARTERIES: Normal enhancement of the main pulmonary artery and right and left pulmonary arteries. Normal enhancement of the bilateral peripheral pulmonary arteries. There is no demonstrated pulmonary embolism. AORTA: Normal thoracic aorta and visualized great vessels. There is no demonstrated aortic dissection. MEDIASTINUM: Prominent heart. No pericardial effusion. Dense coronary artery calcifications are present. Prominent subcarinal lymph node. No other lymphadenopathy. Calcified hilar nodes are seen. LUNGS/PLEURA: Normal visualized trachea and bronchi. The lungs are well expanded. Mild paraseptal emphysema at the lung apices. Pleural thickening at the upper lobes near the apices with some calcification. The appearance is similar to prior imaging. No pleural effusion. No pneumothorax. CHEST WALL: Normal chest wall structures. UPPER ABDOMEN: No acute abnormality in the visualized upper abdomen. Hepatic cyst in the right lobe. Mild thickening of the left adrenal gland is unchanged. OSSEOUS STRUCTURES: No acute or suspicious osseous abnormality. Mild changes of the spine. Status post median sternotomy. CT/CTA Chest W/WO Contrast IMPRESSION: No pulmonary embolism or other acute intrathoracic abnormality. Chronic pleural thickening at the lung apices with calcification. Evidence of previous granulomatous disease. Electronically Signed: Abran Fournier MD at 3:11 [facility] [place] ,
--- NOTE | 2023-08-16 05:55 | EKG12_ITS ---
Test Reason : DIZZY Blood Pressure : / mmHG Vent. Rate : 064 BPM Atrial Rate : 064 BPM P-R Int : 172 ms QRS Dur : 094 ms QT Int : 430 ms P-R-T Axes : 037 026 073 degrees QTc Int : 443 ms Normal sinus rhythm Incomplete right bundle branch block Nonspecific ST abnormality Abnormal ECG Confirmed by CHRISTIE DAVIS, DONAVAN ([id number]), sports editor MEHDI LOPEZ ([id number]) on 08/17/2023 9:17:14 AM Referred By: JAYLEEN/BAUTISTA Confirmed By:DONAVAN SORIANO MD
[2023-08-16] MEDS: Aspirin E.C. 81 MG Tablet PO (06:50)
[2023-08-16] MEDS: Clopidogrel Bisulfate 75 MG Tablet PO (06:50)
[2023-08-16 07:59] LABS: Absolute Lymphocyte Count 2.04 X10^3/uL (0.83-4.51); Absolute Neutrophil Count 3.5 X10^3/uL (2.0-7.7); Basophil# 0.02 X10^3/uL; Basophil% 0.3 % (0-1); Eosinophil# 0.12 X10^3/uL; Eosinophils% 1.9 % (0-5); Hematocrit 37.9 % (40-54); Hemoglobin 12.7 g/dL (13.0-16.5); Lymphocyte # 2.04 X10^3/ul (0.83-4.51); Lymphocyte % 32.7 % (19-41); Mean Corp Hgb Conc 33.5 g/dL (32-36); Mean Corpuscular Hgb 29.9 pg (27.0-32.0); Mean Corpuscular Volume 89.2 fL (80-94); Mean Platelet Vol. 9.9 fl (6.2-12.0); Monocyte# 0.52 X10^3/uL; Monocyte% 8.3 % (0-10); NRBC Flagged by Analyzer 0 % (0-5); Neutrophil # 3.53 X10^3/uL (2.7-7.7); Neutrophil % 56.6 % (47-70); Platelet Count 250 K/mm3 (150-450); RBC Distribution Width CV 13.3 % (11.6-14.6); RBC Distribution Width SD 43.4 fl (35.1-43.9); Red Blood Count 4.25 M/mm3 (4.6-6.2); White Blood Count 6.2 K/mm3 (4.4-11.0)
[2023-08-16] MEDS: amLODIPine 5 MG Tablet 10 MG PO (08:23)
[2023-08-16 08:31] LABS: ALB/GLOB Ratio 1.1 RATIO (0.9-2.4); AST(SGOT) 25 U/L (15-37); Alanine Aminotransfer ALT/SGPT 28 U/L (16-61); Albumin, Serum 3.8 g/dL (3.2-5.0); Alkaline Phosphatase 87 U/L (45-117); Anion Gap 6 (5-15); BUN 19 mg/dL (7-18); BUN/Creat Ratio 18.6 RATIO (10-20); Calcium,Total 9.4 mg/dL (8.5-10.1); Chloride 105 mmol/L (98-107); Creatinine, Serum 1.02 mg/dL (0.70-1.30); EST Glomerular Filtration Rate 75 mL/min (>60); Est Glom Filt Rate - Afr Amer 91 mL/min (>60); Estimated Creatinine Clearance 58.72 ml/min; Globulin 3.5 g/dL (2.2-4.2); Glucose 91 mg/dL (74-106); Magnesium 2.2 mg/dL (1.6-2.6); Phosphorus 3.1 mg/dL (2.5-4.9); Potassium 3.7 mmol/L (3.5-5.1); Protein, Total 7.3 g/dL (6.4-8.2); Sodium Level 137 mmol/L (136-145)
[2023-08-16 08:39] LABS: Cholesterol 203 mg/dL (200); High Density Lipoprotein 59 mg/dL; Triglycerides 105 mg/dL; Very Low Density Lipoprotein 21 mg/dL (5-40)
--- OUTSIDE RECORDS SUMMARY | 2023-08-16 10:29 | XMS RPT_ITS | CCD ---
Author Name Unknown Address [address] [place] [address] Organization [facility] Care Team Providers Care Supervisor Telephone Information Name Role Phone [facility] [...] Coronary atherosclerosis; Translations: [Atherosclerotic heart disease of [place] coronary artery without angina pectoris] Onset: 07-18-2019 [...] Care Provider Facility Start: 05-19-2022 End: 05-19-2022 [facility] Facility:[facility] Start: 02-22-2022 Telephone encounter Beata Shin i, MD Work Phone: Radiology Procedures Date Procedure Procedure Detail Performing Clinician Start: 07-20-2019 Adult depression screening assessment Beata Herrera MD Work Phone: Plan of Treatment Date Care Activity Detail Author Start: 05-05-2023 DIABETES SCREEN DIABETES SCREEN [facility] Start: 04-01-2022 Influenza vaccination INFLUENZA (#1) [facility] Start: 08-01-2021 ADVANCE DIRECTIVE DISCUSSION ADVANCE DIRECTIVE DISCUSSION [facility] Start: 05-05-2021 Hepatitis B surface antibody level LDL CHOLESTEROL [facility] Start: 08-03-2020 ANNUAL PCP TEAM GEOTHERMAL OPERATIONS ENGINEER ROCHELLE DISEASE VISIT ANNUAL PCP TEAM CHRONIC DISEASE VISIT [facility] Start: 07-20-2020 Adult depression scr eening assessment DEPRESSION SCREENING [facility] Start: 1994 SHINGRIX VACCINE (1 of 2) BLEDSOE GRIX VACCINE (1 of 2) [facility] Start: 1963 Urine microalbumin profile DTAP,TDAP ,TD (1 - Tdap) [facility] Start: 1962 BP CONTROLLED (<130/80) BP CONTROLLE D (<130/80) [facility] Start: 1962 HEPATITIS C SCREENING HEPATITIS C SC REENING [facility] Start: 1950 PNEUMOCOCCAL: 65+ (1 - PCV) PNEUMOCOCCAL: 65+ (1 - PCV) [facility] Start: 1944 COVID-19 VACCINE (#1) COVID-19 VACCI NE (#1) [facility] Social History Date Type Detail Facility Start: 05-07-2019 End: 08-01-1993 Tobacco smoking status NHIS Occasional tobacco smoker [facility] End: 08-01-1993 History of tobacco use Cigar Smoker [facility] Start: 05-07-2019 Cigarettes smoked cu rrent (pack per day) - Reported 1 [facility] Start: 05-07-2019 Tobacco use and exposure Smoke less tobacco non-user [facility] Start: 05-05-2020 Alcohol intake 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 quit cigarettes in 1993 [facility] Start: 1945 Sex Assigned At Not on file [facility] Medical Equipment Procedure Code Equipment Code Equipment Original Text Equipment Identifier Dates [place] Thk1.65mm P tfe 4x.5in Cardiovascular Sterile - [id number] Start: 07-19-2019 Note 02-22-2022 Telephone Encounter - Michela Saucedo - 02/22/2022 3:14 PM EDT Note Date & Type Note Facility 02-22-2022 Miscellaneous Notes Patient arrived at the [facility] in [place], [place] requesting an appointment to become established [...] patient if he should follow up with telemetry monitor prior to PCP visit. documented in this encounter [facility] History of Past illness Narrative 07-19-2019 Note Date & Type Note Facility documented as of this encounter (statuses as of 02/22/2022) [facility] Advance Directives No Advanced Directives Records FoundDocuments on File Type Date Recorded Patient [place] [employer] Expl anation Advance Directive(s) 07/18/2019 4:40 PM [...] or prosecute any alcohol or drug abuse patient.[facility] Reason for Visit (unrecogniz ed section [...] BE BASED ON THE PRIMARY CLINICAL RECORDS. [employer] provides no warranty or guarantee of the accuracy or completeness of information in this document.
[2023-08-16] MEDS: Metoprolol Tartrate 50 MG Tablet PO (10:51)
--- NOTE | 2023-08-16 12:05 | CASEMGMT ---
RN HOANG Face to Face with patient for initial transition planning/care coordination assessment. RN CM introduced self and role at [facility]. Patient standing at bedside, alert and oriented, in chair. Patient willing to participate in assessment and is able to answer all questions appropriately. Care providers, pharmacy, and demographics verified. Patient wishes to discharge home, denies need for home health at this time. Patient states he has no further needs or concerns at this time. CM to follow for discharge planning needs that may arise. PCP: Roshan Specialists: none Preferred Pharmacy: [facility] Insurance: [facility] A Prescription Benefit: none Living Will/HPOA: none LNOK: Living Arrangements: Patient lives with in a mobile home with 1 step to enter the home. Patient states he is independent at home Transportation: self DME/HHC: Patient denies DME in the home. No previous HHC or SNF. Disposition Plan: Patient to discharge home with family support and follow-up plans in place. Lanette CARROLL, RN, CM
--- OUTSIDE RECORDS SUMMARY | 2023-08-16 12:30 | XMS RPT_ITS | CCD ---
Author Name Unknown Address [address] [place] [address] Organization [facility] Care Team Providers Care Web Site Designer Name Role Phone Roshan [facility] [...] Coronary atherosclerosis; Translations: [Atherosclerotic heart disease of [place] coronary artery without angina pectoris] Onset: 07-18-2019 [...] Care Provider Facility Start: 05-19-2022 End: 05-19-2022 [facility] Facility:[facility] Start: 02-22-2022 Telephone encounter Beata Shin i, MD Work Phone: Radiology Procedures Date Procedure Procedure Detail Performing Clinician Start: 07-20-2019 Adult depression screening assessment Beata Herrera MD Work Phone: Plan of Treatment Date Care Activity Detail Author Start: 05-05-2023 DIABETES SCREEN DIABETES SCREEN [facility] Start: 04-01-2022 Influenza vaccination INFLUENZA (#1) [facility] Start: 08-01-2021 ADVANCE DIRECTIVE DISCUSSION ADVANCE DIRECTIVE DISCUSSION [facility] Start: 05-05-2021 Hepatitis B surface antibody level LDL CHOLESTEROL [facility] Start: 08-03-2020 ANNUAL PCP TEAM DUTY ENGINEER ROCHELLE DISEASE VISIT ANNUAL PCP TEAM CHRONIC DISEASE VISIT [facility] Start: 07-20-2020 Adult depression scr eening assessment DEPRESSION SCREENING [facility] Start: 1994 SHINGRIX VACCINE (1 of 2) BLEDSOE GRIX VACCINE (1 of 2) [facility] Start: 1963 Urine microalbumin profile DTAP,TDAP ,TD (1 - Tdap) [facility] Start: 1962 BP CONTROLLED (<130/80) BP CONTROLLE D (<130/80) [facility] Start: 1962 HEPATITIS C SCREENING HEPATITIS C SC REENING [facility] Start: 1950 PNEUMOCOCCAL: 65+ (1 - PCV) PNEUMOCOCCAL: 65+ (1 - PCV) [facility] Start: 1944 COVID-19 VACCINE (#1) COVID-19 VACCI NE (#1) [facility] Social History Date Type Detail Facility Start: 05-07-2019 End: 08-01-1993 Tobacco smoking status NHIS Occasional tobacco smoker [facility] End: 08-01-1993 History of tobacco use Cigar Smoker [facility] Start: 05-07-2019 Cigarettes smoked cu rrent (pack per day) - Reported 1 [facility] Start: 05-07-2019 Tobacco use and exposure Smoke less tobacco non-user [facility] Start: 05-05-2020 Alcohol intake 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 quit cigarettes in 1993 [facility] Start: 1945 Sex Assigned At Not on file [facility] Medical Equipment Procedure Code Equipment Code Equipment Original Text Equipment Identifier Dates [place] Thk1.65mm P tfe 4x.5in Cardiovascular Sterile - [id number] Start: 07-19-2019 Note 02-22-2022 Telephone Encounter - Michela Saucedo - 02/22/2022 3:14 PM EDT Note Date & Type Note Facility 02-22-2022 Miscellaneous Notes Patient arrived at the [facility] in [place], [place] requesting an appointment to become established [...] patient if he should follow up with solvent plant treater prior to PCP visit. 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 [employer] provides no warranty or guarantee of the accuracy or completeness of information in this document.
--- OUTSIDE RECORDS SUMMARY | 2023-08-16 12:30 | XMS RPT_ITS | CCD ---
Author Name Unknown Address [address] [place] [address] Organization [facility] Care Team Providers Care Eyeglass Lens Grinder Name Role Phone [facility]han [facility] [...] Coronary atherosclerosis; Translations: [Atherosclerotic heart disease of [place] coronary artery without angina pectoris] Onset: 07-18-2019 [...] Care Provider Facility Start: 05-19-2022 End: 05-19-2022 [facility] Facility:[facility] Start: 02-22-2022 Telephone encounter Beata Shin i, MD Work Phone: Radiology Procedures Date Procedure Procedure Detail Performing Clinician Start: 07-20-2019 Adult depression screening assessment Beata Herrera MD Work Phone: Plan of Treatment Date Care Activity Detail Author Start: 05-05-2023 DIABETES SCREEN DIABETES SCREEN [facility] Start: 04-01-2022 Influenza vaccination INFLUENZA (#1) [facility] Start: 08-01-2021 ADVANCE DIRECTIVE DISCUSSION ADVANCE DIRECTIVE DISCUSSION [facility] Start: 05-05-2021 Hepatitis B surface antibody level LDL CHOLESTEROL [facility] Start: 08-03-2020 ANNUAL PCP TEAM ARMATURE BANDER ROCHELLE DISEASE VISIT ANNUAL PCP TEAM CHRONIC DISEASE VISIT [facility] Start: 07-20-2020 Adult depression scr eening assessment DEPRESSION SCREENING [facility] Start: 1994 SHINGRIX VACCINE (1 of 2) BLEDSOE GRIX VACCINE (1 of 2) [facility] Start: 1963 Urine microalbumin profile DTAP,TDAP ,TD (1 - Tdap) [facility] Start: 1962 BP CONTROLLED (<130/80) BP CONTROLLE D (<130/80) [facility] Start: 1962 HEPATITIS C SCREENING HEPATITIS C SC REENING [facility] Start: 1950 PNEUMOCOCCAL: 65+ (1 - PCV) PNEUMOCOCCAL: 65+ (1 - PCV) [facility] Start: 1944 COVID-19 VACCINE (#1) COVID-19 VACCI NE (#1) [facility] Social History Date Type Detail Facility Start: 05-07-2019 End: 08-01-1993 Tobacco smoking status NHIS Occasional tobacco smoker [facility] End: 08-01-1993 History of tobacco use Cigar Smoker [facility] Start: 05-07-2019 Cigarettes smoked cu rrent (pack per day) - Reported 1 [facility] Start: 05-07-2019 Tobacco use and exposure Smoke less tobacco non-user [facility] Start: 05-05-2020 Alcohol intake Current non-dr belt splicer of alcohol (finding) [facility] Start: 05-07-2019 Tobacco Comment smokes occasio nal cigars. quit cigarettes in 1993 [facility] Start: 1945 Sex Assigned At Not on file [facility] Medical Equipment Procedure Code Equipment Code Equipment Original Text Equipment Identifier Dates [place] Thk1.65mm P tfe 4x.5in Cardiovascular Sterile - [id number] Start: 07-19-2019 Note 02-22-2022 Telephone Encounter - Michela Saucedo - 02/22/2022 3:14 PM EDT Note Date & Type Note Facility 02-22-2022 Miscellaneous Notes Patient arrived at the [facility] in [place], [place] requesting an appointment to become established [...] if he should follow up with crop and soil scientist prior to PCP visit. 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 [employer] provides no warranty or guarantee of the accuracy or completeness of information in this document.
--- NOTE | 2023-08-16 13:24 | STRESSREP_ITS ---
Stress Test Report Pharmacologic/Lexiscan myocardial perfusion stress test. Indication; 78-year-old patient History of CAD History of CABG 2019 Presented to the ER complaining of dizziness There is no active chest pain Underwent evaluation with Lexiscan sestamibi. Stress protocol: Resting EKG demonstrates. Normal sinus rhythm. 0.4 mg of regadenoson was infused per usual protocol followed by rapid intravenous saline flush injection continuous EKG monitoring was performed. The maximum heart rate attained was 107bpm which was 75% of maximum predicted heart . Stress EKG showed[, no significant change from the resting EKG, with maximum heart rate of 107bpm. Arrhythmia: No arrhythmia demonstrated Symptoms: Patient had no symptoms of chest pain Blood pressure at rest: 185/86 elevated medical blood pressure at the end of stress: 204/89 mmHg Myocardial perfusion protocol. 11.8 mCi ]of Technetium 99m Sestamibi was injected at rest. [ 0.4 mg ]of Regadenoson was infused per usual protocol peak infusion, 34.1 mCi ]of Technetium 99m sestamibi was injected. Stress images were obtained stress and rest images were reconstructed and compared in the short axis vertical and horizontal long axis. Gated images were also obtained Perfusion SPECT analysis: Review of the images demonstrate normal uptake of sestamibi at rest, post stress images demonstrate similar uptake of sestamibi to the resting images, homogeneous tracer uptake With no evidence of reversible myocardial ischemia. Gated SPECT analysis: The gated ejection fraction is 73%. Hyperdynamic LV wall motion Conclusion: Negative Lexiscan sestamibi myocardial perfusion study for reversible myocardial ischemia Hyperdynamic left ventricle. Patient has no symptoms to report, in particular no chest pain Karli Cruz MD,FACC,[facility]
[2023-08-16 16:42] LABS: T4 Free Direct 0.97 ng/dL (0.76-1.46); Thyroid Stim Hormone (TSH) 4.27 uIU/mL (0.358-3.74)
--- NOTE | 2023-08-16 17:50 | DCINST_ITS ---
Discharge Instructions Diet Discharge Diet: - (DASH diet) Activity Discharge Activity: - (Increase activity as tolerated) Follow Up Care Test Results: Test results from this visit will be discussed in further detail at your follow- up appointment, if applicable. Discharge Plan Admission Admit Date/Time: 08/15/23 22:05 Primary Reason for Your Visit: Dizziness Attending Provider: Lucy Polanco Primary Care Provider: Neville Islas Consulting Providers: Darrel Carpenter Instructions Patient Instructions: ED Fall Prevention Additional Instructions / Restrictions: DISCHARGE INSTRUCTIONS PLEASE READ *Please take this with you to your next doctors appointment* -Would recommend increasing amlodipine to 10 mg, new prescription has been sent to your preferred pharmacy on file and recommend continuing your metoprolol 25 mg twice daily -Would also recommend taking an aspirin daily if you are not already doing so given your history of heart surgery -Would recommend following up with cardiology upon discharge, contact information below, recommend calling to establish care -Please call your primary care provider's office upon discharge to schedule a hospital follow up within 1 week. -For any concerning signs or symptoms please call 911 or proceed to the nearest emergency department Discharge Orders/Prescriptions Prescriptions: New amlodipine 5 mg Tablet 10 mg PO DAILY 30 Days Qty: 60 0RF aspirin 81 mg Tablet,Delayed Release (Dr/Ec) 81 mg PO BREAKFAST 30 Days Qty: 0 0RF Continued metoprolol tartrate 50 MG tablet 25 mg PO BID Patient Comments: TAKE 1/2 TO 1 TABLET BY MOUTH TWICE DAILY. Discontinued amlodipine 5 MG tablet 5 mg PO DAILY Patient Comments: 1 TABLET ONCE A DAY ORALLY Referrals / Follow Up: Adrian Flores MD [Med Staff - Active Staff] - Neville Islas DO [Primary Care Provider] - Within 1 Week Tami Omalley NP-C [Non-Staff] - Disposition Disposition (needs filled in before D/C Order can be placed): Home, Self Care
--- NOTE | 2023-08-16 17:57 | DS.PCM_ITS ---
Providers Date of Admission: 08/15/23 Date of Discharge: 08/16/23 Primary Care Physician: Dr. Neville Islas DO Reason For Visit: Dizziness Diagnosis Discharge Diagnosis (1) Elevated troponin: Status: Acute Code(s): R79.89 - Other specified abnormal findings of blood chemistry (2) Hypertensive emergency without congestive heart failure: Status: Acute Code(s): I16.1 - Hypertensive emergency (3) Hx of CABG: Status: Acute Code(s): Z95.1 - Presence of aortocoronary bypass graft (4) History of stroke: Status: Chronic Code(s): Z86.73 - Personal history of transient ischemic attack (TIA), and cerebral infarction without residual deficits Plan #Elevated troponin 2/2 HTN #HTN emergency in setting of chronic hypertension #Hx stroke per pt Medications at Discharge Home Medications metoprolol tartrate 50 mg tablet 25 mg PO BID 03/06/18 amlodipine 5 mg tablet 10 mg (2 x 5 mg) PO DAILY 30 days #60 tabs 08/16/23 aspirin 81 mg tablet,delayed release 81 mg PO BREAKFAST 30 days #0 tabs 08/16/23 Hospital Course Procedures Transthoracic echo Summary of Care Provided Minutes Spent on Discharge: 45 Hospital Course: 77M here 08/15 w/ dizziness for 3 days but symptoms would resolve spontaneously so he did not seek medical attention however symptoms persisted on day of presentation prompting him to come to the ED for further evaluation and treatm ent. Did admit that he takes his blood pressure medications when he remembers and does not take them consistently and did have a systolic blood pressure of 216 prior to coming in and he took a clonidine. In ED first troponin 84 and the second 85. He is admitted for elevated troponin and stress test and echocardiogram. Stress normal and echocardiogram with moderate but otherwise unremarkable. Talked with patient and extensively and patient perseverative on intermittently having hot flashes and that he thinks his gut motility is a problem and that the dizziness was more like occasionally he will feel like he is drunk for a period of time and then it will resolve. Said this happened a number of years ago and he does not remember how it resolved or what happened. Query compliance with medications as it appears on admission patient said he does not take them consistently and then report of his compliance was variable during my conversation. Stressed compliance. Suspect elevated troponin all from his significant hypertension likely due to medication noncompliance, patient with very slightly elevated TSH but normal T4 and labs otherwise fairly unremarkable. Of note did have slight elevation in D-dimer but CTA with no PE. Patient still sometimes will get hot flashes thinks he has problems with his hormones but is denying any chest pain or any other focal complaints. Stressed importance of following up closely on outpatient basis with PCP for further longer-term testing and workup as well as cardiology. Patient does not seem to have acute indication for further inpatient hospitalization and stressed that he does need further workup but that patient is stable for discharge for outpatient follow-up. Discharge instructions as follows: -Would recommend increasing amlodipine to 10 mg, new prescription has been sent to your preferred pharmacy on file and recommend continuing your metoprolol 25 mg twice daily -Would also recommend taking an aspirin daily if you are not already doing so given your history of heart surgery -Would recommend following up with cardiology upon discharge, contact information below, recommend calling to establish care -Please call your primary care provider's office upon discharge to schedule a hospital follow up within 1 week. -For any concerning signs or symptoms please call 911 or proceed to the nearest emergency department Physical Exam Narrative General: Alert, oriented, no apparent distress HEENT: Atraumatic, normocephalic Eyes: Anicteric, normal conjunctiva, extraocular movements grossly intact Neck: Supple Respiratory: Clear to auscultation bilaterally, normal respiratory effort Cardiovascular: Regular rate and rhythm, systolic ejection murmur at upper sternal borders GI: Soft, nontender, nondistended Extremities: No edema Musculoskeletal: Moving all extremities Neuro: No overt focal neurological deficits Skin: No rashes appreciated Psych: Perseverative and anxious Weight / BMI Weight Weight: 78.4 kg Body Mass Index (BMI) 25.5 ABG / Lab / Microbiology Data 08/16/23 07:25 08/16/23 07:25 Laboratory: Laboratory Results - last 24 hr 08/15/23 18:35: WBC 6.2, RBC 4.26 L, Hgb 13.2, Hct 38.6 L, MCV 90.6, MCH 31.0, MCHC 34.2, RDW Std Deviation 43.6, RDW Coeff of Deepika 13.2, Plt Count 242, MPV 9.9, Immature Gran % (Auto) 0.300, Neut % (Auto) 62.4, Lymph % (Auto) 25.1, [place] % (Auto) 8.8, Eos % (Auto) 2.9, Baso % (Auto) 0.5, Absolute Neuts (auto) 3.9, Absolute Lymphs (auto) 1.56, Nucleated RBC % 0, Sodium 136, Potassium 4.7, Chloride 100, Carbon Dioxide 28.0, Anion Gap 8, BUN 20 H, Creatinine 1.11, Estim Creat Clear Calc 52.21, Est GFR (MDRD) Af Amer 82, Est GFR (MDRD) Non-Af 68, BUN/Creatinine Ratio 18.0, Glucose 99, Calcium 9.3, Magnesium 2.0, Total Bilirubin 0.60, AST 29, ALT 31, Alkaline Phosphatase 97, Troponin I High Sens 84 H, Total Protein 7.6, Albumin 3.9, Globulin 3.7, Albumin/Globulin Ratio 1.1 08/15/23 18:58: Urine Color Yellow, Urine Clarity Sl. Cloudy, Urine pH 8.0, Ur Specific [place] 1.010, Urine Protein Negative, Urine Glucose (UA) Normal, Urine Ketones Negative, Urine Occult Blood Negative, Urine Nitrite Negative, Urine Bilirubin Negative, Urine Urobilinogen Normal, Ur Leukocyte Esterase Negative, Urine RBC 0 SEEN, Urine WBC 0 SEEN, Ur Squamous Epith Cells 0-5 SEEN, Urine Bacteria 0 SEEN, Urine Mucus 0 SEEN 08/15/23 20:40: Troponin I High Sens 85 H 08/16/23 00:18: D-Dimer Quant (PE/DVT) 0.79 H*, Troponin I High Sens 96 H 08/16/23 07:25: WBC 6.2, RBC 4.25 L, Hgb 12.7 L, Hct 37.9 L, MCV 89.2, MCH 29.9, MCHC 33.5, RDW Std Deviation 43.4, RDW Coeff of Deepika 13.3, Plt Count 250, MPV 9.9, Immature Gran % (Auto) 0.200, Neut % (Auto) 56.6, Lymph % (Auto) 32.7, [place] % (Auto) 8.3, Eos % (Auto) 1.9, Baso % (Auto) 0.3, Absolute Neuts (auto) 3.5, Absolute Lymphs (auto) 2.04, Nucleated RBC % 0, Sodium 137, Potassium 3.7, Chloride 105, Carbon Dioxide 26.0, Anion Gap 6, BUN 19 H, Creatinine 1.02, Estim Creat Clear Calc 58.72, Est GFR (MDRD) Af Amer 91, Est GFR (MDRD) Non-Af 75, BUN/Creatinine Ratio 18.6, Glucose 91, Calcium 9.4, Phosphorus 3.1, Magnesium 2.2, Total Bilirubin 0.80, AST 25, ALT 28, Alkaline Phosphatase 87, Total Protein 7.3, Albumin 3.8, Globulin 3.5, Albumin/Globulin Ratio 1.1, Triglycerides 105, Cholesterol 203 H, LDL Cholesterol 123, VLDL Cholesterol 21, HDL Cholesterol 59, TSH 4.27 H, Free T4 0.97 Radiography Diagnostic Testing: Radiology Impression Brain CT 08/15/23 18:54 IMPRESSION: Chronic ischemic changes. No CT evidence of acute intracranial pathology. Electronically Signed: Jonathan MontezSterling Marx DO at 19:30 EST , Chest X-Ray 08/15/23 19:20 IMPRESSION: Status post CABG. No acute findings. Electronically Signed: Jonathan MontezSterling Marx DO at 19:30 EST , Echocardiogram 08/15/23 22:08 Interpretation Summary The estimated ejection fraction is 65 %. Mild (1+) mitral valve insufficiency. Moderate aortic stenosis. Ordering Physician: Darrel Carpenter Referring Physician: Neville Islas Performed By: Gabriella Álvarez, DEJA Venous Doppler Study 08/16/23 00:13 Interpretation Summary Deep veins of the bilateral lower extremities are patent and compressible segmentally. There is no evidence of bilateral lower extremity deep vein thrombosis. The bilateral great saphenous veins appear patent and compressible segmentally. Non vascularized area of mixed echogenicity is noted in the left popliteal fossa measuring approximately 4.03cm x 2.78cm. Ordering Physician: Darrel Carpenter Referring Physician: Neville Islas Performed By: Huseyin Lopez, T Chest CTA 08/16/23 01:26 IMPRESSION: No pulmonary embolism or other acute intrathoracic abnormality. Chronic pleural thickening at the lung apices with calcification. Evidence of previous granulomatous disease. Electronically Signed: Abran Fournier MD at 3:11 EST , D/C Instructions Discharge Diet: - (DASH diet) Meaningful Use Info Meaningful Use Diagnoses (Choose all that apply): None applicable Discharge Plan Admission Admit Date/Time: 08/15/23 22:05 Primary Reason for Your Visit: Dizziness Attending Provider: Lucy Polanco Primary Care Provider: Neville Islas Consulting Providers: Darrel Carpenter Instructions Patient Instructions: ED Fall Prevention Additional Instructions / Restrictions: DISCHARGE INSTRUCTIONS PLEASE READ *Please take this with you to your next doctors appointment* -Would recommend increasing amlodipine to 10 mg, new prescription has been sent to your preferred pharmacy on file and recommend continuing your metoprolol 25 mg twice daily -Would also recommend taking an aspirin daily if you are not already doing so given your history of heart surgery -Would recommend following up with cardiology upon discharge, contact information below, recommend calling to establish care -Please call your primary care provider's office upon discharge to schedule a hospital follow up within 1 week. -For any concerning signs or symptoms please call 911 or proceed to the nearest emergency department Discharge Orders/Prescriptions Prescriptions: New amlodipine 5 mg Tablet 10 mg PO DAILY 30 Days Qty: 60 0RF aspirin 81 mg Tablet,Delayed Release (Dr/Ec) 81 mg PO BREAKFAST 30 Days Qty: 0 0RF Continued metoprolol tartrate 50 MG tablet 25 mg PO BID Patient Comments: TAKE 1/2 TO 1 TABLET BY MOUTH TWICE DAILY. Discontinued amlodipine 5 MG tablet 5 mg PO DAILY Patient Comments: 1 TABLET ONCE A DAY ORALLY Referrals / Follow Up: Adrian Flores MD [Med Staff - Active Staff] - Neville Islas DO [Primary Care Provider] - Within 1 Week Tami Omalley NP-C [Non-Staff] - Disposition Disposition (needs filled in before D/C Order can be placed): Home, Self Care Charges/Coding Visit Charges Inpatient E&M: 10857 Disch Hosp >30min
== END 2023-08-16 17:57 | disposition home or self-care (01) ==
LOC: ED 21:28 → PCU 21:52
PROVIDERS: Physician Assistant; Admitting Provider Internal Medicine; Emergency Provider Emergency Medicine; PCP Family Medicine; Visit Provider Internal Medicine
DX: I16.1 Hypertensive emergency (principal); I10 Essential (primary) hypertension; E78.5 Hyperlipidemia, unspecified; I25.10 Atherosclerotic heart disease of native coronary artery without angina pectoris; R41.82 Altered mental status, unspecified; R77.8 Other specified abnormalities of plasma proteins; Z87.891 Personal history of nicotine dependence; R79.89 Other specified abnormal findings of blood chemistry; Z95.1 Presence of aortocoronary bypass graft; Z79.899 Other long term (current) drug therapy; M19.90 Unspecified osteoarthritis, unspecified site; E87.1 Hypo-osmolality and hyponatremia; I45.10 Unspecified right bundle-branch block; R94.31 Abnormal electrocardiogram [ECG] [EKG]; I34.0 Nonrheumatic mitral (valve) insufficiency; M79.89 Other specified soft tissue disorders
CPT/HCPCS: 36415; 70450; 71045; 71275; 78452; 80053; 80061; 81001; 83735; 84100; 84439; 84443; 84484; 85025; 85379; 93005; 93017; 93306; 93970; 96372; 96374; 97802; 99221; 99284; A9500; Q9967; A4216; G0378; J2785

== ENCOUNTER → 2023-08-22 | Outpatient (CLI) | payer SELFPAY ==
[2023-08-22 16:17] LABS: Prolactin 11.4 ng/mL; Thyroid Stim Hormone (TSH) 4.59 uIU/mL (0.358-3.74)
[2023-09-01 10:09] LABS: Testosterone, % Free 1.85 % (1.50-4.20); Testosterone, Free 6.92 ng/dL (5.00-21.00); Testosterone, Total 374 ng/dL (264-916); Transferrin 250 mg/dL (177-329)
== END | disposition home or self-care (01) ==
PROVIDERS: PCP Family Medicine; Visit Provider Family Medicine
DX: E29.1 Testicular hypofunction (principal); R23.2 Flushing
CPT/HCPCS: 36415; 84146; 84402; 84403; 84443; 84466

== ENCOUNTER 2023-12-11 02:36 | Emergency (ER) | payer MEDICARE, SELFPAY ==
[2023-12-11] VITALS (7 sets, daily range): BP systolic 145–213; BP diastolic 70–82; PULSE 59–81; RESP 13–17; TEMP 36.6–36.8; O2SAT 94–98; BMI 29.0
--- NOTE | 2023-12-11 02:46 | EDS_ITS ---
HPI History of Present Illness Chief Complaint: Eye Problem Informant: patient Onset/Context/Timing Location: Bilateral Eyes (Left worse than right) Onset: Today Context: Sudden Onset Timing: Continuous Worsened by: Elevated blood pressure Relieved by: Nothing Associated Symptoms History of injury: No Visual correction: Glasses Narrative Narrative: Patient presents with decreased vision in his eyes that began today. Patient states his left eye is worse than his right. Patient states he has a decrease in his peripheral vision. Patient states that he checked his blood pressure at home and it was elevated at 233/111. Patient states that his vision gets worse as his blood pressure increases. Patient states he has a history of macular degeneration. Patient denies any headaches. Patient denies any nausea or vo miting. Patient denies any chest pain or shortness of breath. [facility] Medical History Acute alteration in mental status CVA (cerebral vascular accident) History of stroke Hypertension Hyponatremia Neuropathy TIA (transient ischemic attack) Tonsillectomy planned Vasectomy planned Home Medications metoprolol tartrate 50 mg tablet 25 mg PO BID 03/06/18 [History Last Taken Unknown] amlodipine 5 mg tablet 10 mg (2 x 5 mg) PO DAILY 30 days #60 tabs 08/16/23 [Rx Last Taken Unknown] aspirin 81 mg tablet,delayed release 81 mg PO BREAKFAST 30 days #0 tabs 08/16/23 [Rx Last Taken Unknown] Allergy/AdvReac Type Severity Reaction Status Date / Time No Known Allergies Allergy Verified 12/11/23 02:38 Surgical History History of appendectomy Hx of CABG Social History Smoking Status: Former smoker ROS ROS ED Constitutional Constitutional ED: Denies chills or fever(s) Eyes Eyes: Reports change in vision; Denies blurry vision ENT ENT ED: Denies rhinorrhea or sore throat Cardiovascular Cardiovascular: Denies chest pain or palpitations Respiratory/Chest Respiratory/Chest: Denies cough or dyspnea Gastrointestinal Gastrointestinal: Denies nausea or vomiting Genitourinary Genitourinary ED: Denies dysuria or hematuria Musculoskeletal Musculoskeletal: Denies back pain or neck pain Integumentary Denies abscess or rash Neurologic Neurologic: Denies headache(s) or weakness Allergic/Immunologic Allergic/Immunologic ED: Denies mouth swelling or urticaria EXAM Physical Exam Const Vital Signs: 12/11/23 02:39 12/11/23 02:37 12/11/23 02:45 Temperature 98.2 F 98.2 F 98.2 F Temperature Source Oral Oral Oral Pulse Rate 81 81 74 Respiratory Rate 16 16 17 Blood Pressure 213/81 H 213/81 H 167/82 H Blood Pressure Mean 125 125 110 Pulse Ox 98 98 96 Oxygen Delivery Method Room Air Room Air Room Air Positive well nourished and well developed General Appearance ED: well developed and NAD HEENT atraumatic Eyes Eyes Narrative: Pupils are equal, round, and reactive to light bilaterally. Extraocular muscles are intact. Conjunctiva is clear. There is no visual field deficit noted. Neck supple and no JVD Resp normal respiratory effort and clear to auscultation bilaterally Cardio regular rate and regular rhythm GI non-tender and non-distended Palpation: soft Neuro oriented x3, CN's II-XII intact bilaterally, moves all extremities and no sensory deficits noted Sensorium / Orientation: alert Motor Exam: strength 5/5 throughout MDM MDM MDM Narrative Medical decision making narrative: Differential diagnosis includes stroke, hypertensive urgency, hypertensive emergency, electrolyte abnormality, anemia, and anxiety. CT scan of the brain will be obtained to assess for intracranial bleeding and stroke. Chest x-ray will be obtained to assess for pneumonia and pneumothorax and widened mediastinum. EKG will be obtained to assess for cardiac dysrhythmia and cardiac ischemia. CBC will be obtained to assess for leukocytosis and anemia. Basic metabolic profile will be obtained to assess for electrolyte abnormality and renal function. High-sensitivity troponin will be obtained to assess for cardiac ischemia. Lab Data Attestation: I reviewed the patient's lab results. Lab results narrative: CBC was reviewed. There is a slight anemia with a hemoglobin of 11.7 and hematocrit 35.1. Basic metabolic profile was reviewed. BUN was slightly elevated at 24. The remainder is within normal limits. High-sensitivity troponin was reviewed and was normal at 77. Radiography Chest X-Ray - ED: 2 View, Read by ED Physician, Read by Radiologist and No Acute Disease Diagnostic Testing: CT scan of the brain was obtained. There is no acute intracranial abnormality. This was interpreted by the radiologist and was also independently reviewed by myself. PA and lateral chest x-ray was obtained. There are 2 views. On my independent interpretation, lung pang are clear. There is normal cardiac silhouette. Bony thorax is normal. There is no acute process noted. Radiologist also interpreted the x-ray and agrees. EKG Initial EKG: Attestation: I personally reviewed and interpreted this EKG as follows: Interpretation: Sinus Rhythm and No Acute Injury Pattern Comments: EKG was obtained. On my independent interpretation, it showed a normal sinus rhythm with a rate of 67. ID interval, QRS interval, and QTc intervals were all normal. [place] was normal. There are no acute ST or T wave changes. Treatment and Re-Evaluation Narrative: Patient is feeling better on reevaluation. Patient's blood pressure improved to 145/74. Patient had no further visual disturbances. Patient was instructed to continue to monitor his blood pressure at home. Patient was instructed to follow-up with his primary care physician in 5 to 7 days. Patient understood and was agreeable with the plan. All questions were answered. Discharge Plan Triage Chief Complaint: Eye Problem ED Provider: Stevie Vela Dx/Rx/DC Orders Clinical Impression: Chronic hypertension, Visual disturbance Instructions: ED Hypertension, Established Prescriptions: No Action metoprolol tartrate 50 MG tablet 25 mg PO BID Patient Comments: TAKE 1/2 TO 1 TABLET BY MOUTH TWICE DAILY. amlodipine 5 mg Tablet 10 mg PO DAILY 30 Days Qty: 60 0RF aspirin 81 mg Tablet,Delayed Release (Dr/Ec) 81 mg PO BREAKFAST 30 Days Qty: 0 0RF Primary Care Provider: Neville Islas Referrals: Neville Islas DO [Primary Care Provider] - 3-5 Days Disposition Disposition: Home, Self Care
--- NOTE | 2023-12-11 03:15 | CT_ITS ---
EXAM: CT HEAD WITHOUT INTRAVENOUS CONTRAST CLINICAL INDICATION: Visual changes TECHNIQUE: Multiple axial images were obtained of the head without intravenous contrast. CTDIvol = ( 44.99 ) mGy, DLP = ( 812.98 ) mGycm This CT exam was performed using one or more of the following dose reduction techniques: automated exposure control, adjustment of the mA and/or kV according to patient size, and/or use of iterative reconstruction technique. COMPARISON: No relevant prior studies available. FINDINGS: BRAIN AND EXTRA-AXIAL SPACES: Periventricular small vessel ischemic change. No midline shift or hydrocephalus. Diffuse parenchymal atrophy. Posterior fossa structures are unremarkable. Small old lacunar infarct involving the right basal ganglia. Basal cisterns are patent. No acute intracranial hemorrhage, mass effect or edema. No evidence of acute cortical stroke. BONES/JOINTS: Unremarkable. No discrete lytic or blastic abnormalities. VASCULATURE: Atherosclerotic calcifications of the carotid siphons and vertebrobasilar arteries. SINUSES: Unremarkable as visualized. Clear. MASTOID AIR CELLS: Visualized sinuses and mastoid air cells are clear. ORBITS: Visualized globes, extraocular muscles, optic nerves and retrobulbar fat appear unremarkable. CT/Brain/Head without Contrast IMPRESSION: 1. No evidence of acute intracranial pathology. 2. Diffuse involutional changes and chronic ischemic small vessel white matter disease. AIDOC was utilized to assist in identifying pertinent positive findings. Electronically Signed: Harrison Noe MD at 4:41 EDT ,
[2023-12-11 03:49] LABS: Absolute Lymphocyte Count 1.38 X10^3/uL (0.83-4.51); Absolute Neutrophil Count 3.8 X10^3/uL (2.0-7.7); Basophil# 0.03 X10^3/uL; Basophil% 0.5 % (0-1); Eosinophil# 0.13 X10^3/uL; Eosinophils% 2.2 % (0-5); Hematocrit 35.1 % (40-54); Hemoglobin 11.7 g/dL (13.0-16.5); Lymphocyte # 1.38 X10^3/ul (0.83-4.51); Lymphocyte % 23.2 % (19-41); Mean Corp Hgb Conc 33.3 g/dL (32-36); Mean Corpuscular Hgb 30.2 pg (27.0-32.0); Mean Corpuscular Volume 90.7 fL (80-94); Mean Platelet Vol. 9.8 fl (6.2-12.0); Monocyte# 0.56 X10^3/uL; Monocyte% 9.4 % (0-10); NRBC Flagged by Analyzer 0 % (0-5); Neutrophil # 3.82 X10^3/uL (2.7-7.7); Neutrophil % 64.4 % (47-70); Platelet Count 233 K/mm3 (150-450); RBC Distribution Width CV 12.8 % (11.6-14.6); RBC Distribution Width SD 41.6 fl (35.1-43.9); Red Blood Count 3.87 M/mm3 (4.6-6.2); White Blood Count 5.9 K/mm3 (4.4-11.0)
--- NOTE | 2023-12-11 04:00 | RAD_ITS ---
EXAM: XR CHEST, 2 VIEWS CLINICAL INDICATION: Hypertension TECHNIQUE: Frontal and lateral views of the chest. COMPARISON: No relevant prior studies available. FINDINGS: LUNGS AND PLEURAL SPACES: Unremarkable. No consolidation or edema. No pneumothorax. No effusion. HEART: CABG postsurgical changes with intact sternotomy wires. No aortic dilatation. MEDIASTINUM: No other cardiomediastinal or hilar abnormalities. BONES/JOINTS: Degenerative changes of the spine. SOFT TISSUES: Unremarkable. RAD/Chest PA and Lateral IMPRESSION: No acute disease. No findings to explain the clinical presentation. Electronically Signed: Harrison Noe MD at 4:42 EDT ,
[2023-12-11 04:03] LABS: Anion Gap 6 (5-15); BUN 24 mg/dL (7-18); BUN/Creat Ratio 20.3 RATIO (10-20); Calcium,Total 8.8 mg/dL (8.5-10.1); Chloride 105 mmol/L (98-107); Creatinine, Serum 1.18 mg/dL (0.70-1.30); EST Glomerular Filtration Rate 63 mL/min (>60); Est Glom Filt Rate - Afr Amer 76 mL/min (>60); Estimated Creatinine Clearance 54.39 ml/min; Glucose 107 mg/dL (74-106); Potassium 4.1 mmol/L (3.5-5.1); Sodium Level 138 mmol/L (136-145); Troponin-I HS 77 pg/mL (3.0-78.0)
[2023-12-11] MEDS: cloNIDine HCl 0.1 MG Tablet PO (05:28)
== END 2023-12-11 08:09 | disposition home or self-care (01) ==
PROVIDERS: Emergency Provider Emergency Medicine; PCP Family Medicine; Visit Provider Emergency Medicine
DX: I10 Essential (primary) hypertension (principal); H53.9 Unspecified visual disturbance; Z87.891 Personal history of nicotine dependence; Z86.73 Personal history of transient ischemic attack (TIA), and cerebral infarction without residual deficits; Z98.52 Vasectomy status; Z79.899 Other long term (current) drug therapy; Z79.82 Long term (current) use of aspirin; Z90.49 Acquired absence of other specified parts of digestive tract; Z95.1 Presence of aortocoronary bypass graft
CPT/HCPCS: 70450; 71046; 80048; 84484; 85025; 93005; 99285; A4216

== ENCOUNTER → 2024-01-06 | Outpatient (CLI) | payer SELFPAY ==
--- NOTE | 2024-01-06 13:36 | ART_ITS ---
Reason For Study: BLE Claudication Procedure A bilateral lower extremity continuous wave Doppler with analog waveform analysis and ankle brachial indexes. Left Segmental Pressures Left brachial= 196mmHg. Left posterior tibial artery = 135mmHg. Left dorsalis pedis artery = 141mmHg. Left digit = 87 mmHg. The left posterior tibial artery waveforms are monophasic. The left dorsalis pedis waveforms are biphasic. Right Segmental Pressures Right brachial= 206mmHg. Right posterior tibial artery = 174mmHg. Right dorsalis pedis artery = 162mmHg. Right digit = 119 mmHg. The right posterior tibial artery waveforms are biphasic. The right dorsalis pedis waveforms are biphasic. Left message at Pt's PCP about elevated BP findings. Indices The right ankle brachial index by the posterior tibial artery is 0.84. The right ankle brachial index by the dorsalis pedis is 0.79. The right digital-brachial index is 0.58. The left ankle brachial index by the posterior tibial artery is 0.66. The left ankle brachial index by the dorsalis pedis is 0.68. The left digital-brachial index is 0.42. VL/Ankle Brachial Index Interpretation Summary Right LEONARD 0.84, moderate arterial insufficiency. Doppler/PVR waveforms of the r ight ankle moderately diminished at rest. Left LEONARD 0.68, moderate arterial insufficiency. Doppler/PVR waveforms of the le ft ankle moderately diminished at rest. Ordering Physician: Neville Islas Referring Physician: Neville Islas Performed By: Huseyin Lopez, RVT
== END | disposition home or self-care (01) ==
PROVIDERS: PCP Family Medicine; Referring Provider Family Medicine; Visit Provider Family Medicine
DX: I73.9 Peripheral vascular disease, unspecified (principal)
CPT/HCPCS: 93922

== ENCOUNTER → 2024-02-03 | Outpatient (CLI) | payer SELFPAY ==
--- NOTE | 2024-02-03 12:29 | CT_ITS ---
CT angiogram of the abdominal aorta with bilateral lower extremity runoff without 3-dimensional reconstructions, with MIP reconstructions Clinical history: Peripheral vascular disease, unspecified. Technique: Multiple helical CT images were obtained from the domes the diaphragms to level of feet after intravenous administration of iodinated contrast with transaxial, coronal and sagittal multiplanar reconstructions. On a separate workstation, 3-dimensional reconstructions were obtained of the arterial vasculature using volume rendering technique and maximal intensity projection technique as per departmental protocol. The protocol utilizes one or more of the following dose reduction techniques: automated exposure control, adjustment of mA and/or kV according to patient size,and/or use of iterative reconstruction technique. RADIATION DOSAGE (If Supplied By Facility): CTDIvol = ( 8.10 ) mGy, DLP = ( 1143.60 ) mGycm COMPARISON: No relevant prior comparison study available FINDINGS: ABDOMEN / PELVIS: Mild hepatic steatosis. 1.4 cm a right lobe liver lesion likely representing cyst.. Heterogeneous spleen likely due to arterial phase of scanning. Unremarkable pancreas.. Contracted gallbladder without definite gallstones.. No evidence of hydronephrosis. Slightly prominent left adrenal gland.. Density in the stomach likely representing undissolved pill. Normal caliber small bowel loops. Diverticulosis without evidence of acute diverticulitis.. No pelvic mass. Probably very small inguinal hernias containing fat.. VASCULAR STRUCTURES: There appears to be good opacification and patency of the visualized abdominal aorta. Mild atherosclerotic calcifications. There appears to be good opacification and patency of the celiac trunk, superior mesenteric artery. Mild calcifications at the origin of the SMA without significant stenosis. There appears to be good opacification and patency noted of the RIGHT and LEFT renal arteries. There are 2 left renal arteries. No significant stenosis. There appears to be good opacification and patency noted of the inferior mesenteric artery. ARTERIAL STRUCTURES OF THE RIGHT LOWER EXTREMITY: Common iliac artery: Atherosclerotic calcifications with moderate stenosis. External iliac artery: Focal area of moderate stenosis in its mid aspect. Internal iliac arteries: Diffuse atherosclerotic calcifications with moderate to severe stenosis. Common femoral artery: Atherosclerotic calcifications with minimal stenosis. Superficial femoral arteries: Diffuse atherosclerotic calcifications throughout the course of the SFA with scattered areas of significant stenosis. Popliteal artery: Appears patent with good opacification. Anterior tibial artery: Patent to the level of the ankle. The distal aspect and the dorsalis pedis are not visualized. Posterior tibial artery: Appears patent with good opacification. Peroneal artery: Visualized to the region of the proximal calf. ARTERIAL STRUCTURES OF THE LEFT LOWER EXTREMITY: Common iliac artery: Atherosclerotic calcifications with mild stenosis. External iliac artery: Atherosclerotic calcifications with mild stenosis. Internal iliac arteries: Diffuse atherosclerotic calcifications with severe stenosis. Common femoral artery: Atherosclerotic calcifications with mild stenosis.. Superficial femoral arteries: Mccarthy atherosclerotic calcifications with scattered areas of moderate to severe stenosis. Popliteal artery: Appears patent with good opacification. Anterior tibial artery: Scattered calcifications approximately with moderate stenosis. Visualized level of the distal calf. Posterior tibial artery: Appears patent with good opacification. Peroneal artery: Visualized of the distal calf. CT/CTA Abd w/Runoff W/WO Contrast IMPRESSION: 1. Atherosclerotic calcifications of the iliac arteries bilaterally with severe stenosis of the internal iliac arteries. 2. Diffuse atherosclerotic calcifications of the bilateral SFAs with scattered areas of moderate to severe stenosis. 3. One-vessel runoff to both lower lungs through the posterior tibial arteries. The left peroneal artery is visualized to the level of the distal calf. 4. Only the proximal bilateral anterior tibial arteries are visualized. Electronically Signed: Kehinde Leonard MD at 14:53 EDT ,
[2024-02-03 13:19] LABS: CREATININE FINGERSTICK < 1.0 mg/dL (0.70-1.30); EGFR FINGERSTICK > 60.0000 mL/min (>60)
== END | disposition home or self-care (01) ==
LOC: RAD 12:04 → CT 12:07
PROVIDERS: PCP Family Medicine; Referring Provider Family Medicine; Visit Provider Family Medicine
DX: I73.9 Peripheral vascular disease, unspecified (principal)
CPT/HCPCS: 75635; Q9967

== ENCOUNTER 2024-04-11 20:19 | Inpatient (IN) | payer MEDICARE, SELFPAY ==
[2024-04-11] VITALS (9 sets, daily range): BP systolic 122–191; BP diastolic 68–85; PULSE 76–92; RESP 17–23; TEMP 36.6–37.2; O2SAT 94–100; BMI 27.6
--- NOTE | 2024-04-11 20:59 | EKG12_ITS ---
Test Reason : CP Blood Pressure : / mmHG Vent. Rate : 083 BPM Atrial Rate : 083 BPM P-R Int : 160 ms QRS Dur : 094 ms QT Int : 388 ms P-R-T Axes : 044 026 072 degrees QTc Int : 455 ms Normal sinus rhythm Incomplete right bundle branch block Nonspecific ST abnormality Abnormal ECG Confirmed by CHRISTIE DAVIS, DONAVAN ([id number]), editorial writer EDEN MENESES ([id number]) on 04/13/2024 8:01:59 AM Referred By: LUCRECIA Confirmed By:DONAVAN SORINAO MD
--- NOTE | 2024-04-11 21:02 | EDS_ITS ---
HPI History of Present Illness Chief Complaint: Chest Pain Informant: patient and family Narrative Narrative: 79-year-old male previous medical history of coronary artery disease status post CABG, atherosclerosis lower extremities with claudication hypertension pr esenting to the emergency room with abnormal labs. Patient states for the past 3 days when he goes to exert himself he gets pains in his legs and a burning in his chest and shortness of breath. Eventually the symptoms will resolve with rest. He went to see primary care today where blood work showed a hemoglobin of 7.2 slightly elevated troponin and a D-dimer of 2. He was sent to the emergency department for evaluation. Patient notes every month or 2 he will take some Epson salt drinks to strip his colon. He states that a couple days ago he did this and he had a large amount of bright red blood per rectum. He has subsequently had a normal bowel movement yesterday and none today. He denies any abdominal pain. No rectal pain. He denies any black stools. He states that he is not currently on any medications but will occasionally take amlodipine if his blood pressure gets greater than 180 systolic. [facility] Medical History Acute alteration in mental status Neuropathy Vasectomy planned Tonsillectomy planned Hyponatremia TIA (transient ischemic attack) CVA (cerebral vascular accident) Hypertension History of stroke Home Medications ?Medication ?Instructions ?Recorded ?Last Taken ?Type amlodipine 5 mg tablet 10 mg PO DAILY PRN bp 04/11/24 Unknown History Allergy/AdvReac Type Severity Reaction Status Date / Time No Known Allergies Allergy Verified 04/11/24 20:22 Surgical History History of appendectomy Hx of CABG Social History Smoking Status: Former smoker ROS ROS ED Constitutional Constitutional ED: Denies chills, fever(s) or weight loss Eyes Eyes: Denies change in vision or diplopia ENT ENT ED: Denies ear pain, rhinorrhea or sore throat Cardiovascular Cardiovascular: Reports chest pain; Denies orthopnea, palpitations or racing heartbeat Respiratory/Chest Respiratory/Chest: Denies cough, dyspnea or orthopnea Gastrointestinal Gastrointestinal: Reports other Details: Bright red blood per rectum ; Denies abdominal pain, diarrhea, nausea or vomiting Genitourinary Genitourinary ED: Denies dysuria, hematuria or urinary frequency Musculoskeletal Musculoskeletal: Reports other Details: Leg pain ; Denies arthralgias or myalgias Integumentary Denies abscess or rash Neurologic Neurologic: Denies headache(s) or weakness Psychiatric Psychiatric: Denies anxiety, depression, suicidal ideation or suicidal thoughts Endocrine Endocrinology: Denies polydipsia, polyphagia or polyuria Allergic/Immunologic Allergic/Immunologic ED: Denies mouth swelling, tongue swelling or urticaria EXAM Physical Exam Const Vital Signs: 04/11/24 20:20 04/11/24 20:56 04/11/24 21:20 Temperature 97.8 F Temperature Source Temporal Pulse Rate 84 77 Pulse Rate [Lying] Pulse Rate [Sitting (for 1 minute prior to obtaining)] Pulse Rate [Standing (for 1 minute prior to obtaining)] Respiratory Rate 18 18 Respiratory Effort Normal Non-Labored Blood Pressure 188/83 H 174/68 H Blood Pressure [Lying] Blood Pressure [Sitting (for 1 minute prior to obtaining)] Blood Pressure [Standing (for 1 minute prior to obtaining)] Blood Pressure Mean 118 103 Blood Pressure Mean [Lying] Blood Pressure Mean [Sitting (for 1 minute prior to obtaining)] Blood Pressure Mean [Standing (for 1 minute prior to obtaining)] Pulse Ox 99 94 Oxygen Delivery Method Room Air 04/11/24 22:00 04/11/24 22:11 Temperature Temperature Source Pulse Rate 81 Pulse Rate [Lying] 83 Pulse Rate [Sitting (for 1 minute prior to obtaining)] 83 Pulse Rate [Standing (for 1 minute prior to obtaining)] 92 Respiratory Rate 17 Respiratory Effort Blood Pressure 191/76 H Blood Pressure [Lying] 182/79 H Blood Pressure [Sitting (for 1 minute prior to obtaining)] 184/77 H Blood Pressure [Standing (for 1 minute prior to obtaining)] 188/79 H Blood Pressure Mean 114 Blood Pressure Mean [Lying] 113 Blood Pressure Mean [Sitting (for 1 minute prior to obtaining)] 112 Blood Pressure Mean [Standing (for 1 minute prior to obtaining)] 115 Pulse Ox 94 Oxygen Delivery Method Positive well nourished and well developed General Appearance ED: well developed HEENT Reports normocephalic, head/scalp atraumatic and moist mucous membranes Eyes PERRL and EOMs intact bilaterally General Eye ED: Yes pale conjunctiva Neck no lymphadenopathy, supple and no JVD Resp normal respiratory effort and clear to auscultation bilaterally Cardio regular rate, regular rhythm and no murmurs GI normal to inspection, nondistended, normoactive bowel sounds and non-tender Palpation: soft Back/Spine no CVA tenderness and normal ROM Extremity normal to inspection General Extremety ED: Negative for edema General Extremity: Negative for edema Neuro oriented x3 and CN's II-XII intact bilaterally Sensorium / Orientation: alert Motor Exam: strength 5/5 throughout Psych mental status grossly normal Mood & Affect: Negative for depressed or tearful Skin no rashes or lesions noted and no wounds MDM MDM MDM Narrative Medical decision making narrative: Differential diagnosis includes lower GI bleeding, anemia, acute coronary syndrome, pulmonary embolism, claudication EKG shows a sinus rhythm with no obvious ST elevation. Patient's troponin is slightly elevated at 124 which I think is most likely related to his anemia at 6.7. CTA of the chest shows no pulmonary embolism. CT of the abdomen pelvis shows a concerning 4.5 cm masslike structure of the ascending colon. I would encourage the reader of this note to please see the radiologist dictation for full details of the CTs. I think the patient symptomology include his leg pain and his chest pain/shortness of breath has a high probability of being related to his degree of anemia although certainly progression of his atherosclerotic disease both coronary and peripheral is a high likelihood given his noncompliance. Patient will take a dose of his amlodipine as he has persistently remained hypertensive but without symptoms. Patient will be typed and crossed. I will speak with both GI and with hospitalist regarding admission. History & Record Review Discussion w/independent historian: Patient and Family Lab Data Attestation: I reviewed the patient's lab results. Labs: Laboratory Results - last 24 hr 04/11/24 04/11/24 20:43 20:46 WBC 6.0 RBC 2.51 L Hgb 6.7 L Hct 21.3 L MCV 84.9 MCH 26.7 L MCHC 31.5 L RDW Std Deviation 40.7 RDW Coeff of Deepika 13.2 Plt Count 304 MPV 9.5 Immature Gran % (Auto) 0.500 Neut % (Auto) 65.6 Lymph % (Auto) 19.0 Mcdonald % (Auto) 13.1 H Eos % (Auto) 1.3 Baso % (Auto) 0.5 Absolute Neuts (auto) 4.0 Absolute Lymphs (auto) 1.15 Nucleated RBC % 0 PT 13.8 INR 1.1 APTT 27.9 Sodium 141 Potassium 3.7 Chloride 105 Carbon Dioxide 26.0 Anion Gap 10 BUN 18 Creatinine 1.30 Estim Creat Clear Calc 45.94 Est GFR (MDRD) Af Amer 68 Est GFR (MDRD) Non-Af 56 L BUN/Creatinine Ratio 13.8 Glucose 123 H Calcium 8.7 Total Bilirubin 0.30 Direct Bilirubin 0.09 AST 15 ALT 18 Alkaline Phosphatase 87 Troponin I High Sens 124 H* Total Protein 6.6 Albumin 3.4 Globulin 3.2 Lipase 29 Blood Type O POSITIVE Antibody Screen NEGATIVE Crossmatch See Detail Radiography Diagnostic Testing: Clinical Impression(s) from Imaging Studies Chest/Abdomen/Pelvis CTA 04/11/24 21:30 IMPRESSION: 1. No evidence of pulmonary artery embolus. 2. Masslike wall thickening of the ascending colon and a region measuring up to approximately 4.5 cm suspicious for malignancy. Recommend direct visualization and surgical consultation. 3. Moderate to severe stenosis of the right common and right external iliac artery secondary to densely calcified atheroma. 4. Bilateral apical scarring, left greater than right with band like opacity in the left upper lobe similar to the prior examination. 5. Low-attenuation right posterior hepatic lobe lesion is indeterminate, not distinctly assist particularly given the bowel pathology described. Metastatic disease cannot be excluded. 6. Near occlusion of the left common iliac artery secondary to densely calcified atheroma. 7. Multiple nonspecific enlarged mediastinal lymph nodes particularly subcarinal lymph nodes. 8. Colonic diverticulosis without evidence of acute diverticulitis. Electronically Signed: Jonathan Marx DO at 22:07 EDT , ADDENDUM: 04/11/241 IMPRESSION: 1. No evidence of pulmonary artery embolus. 2. Masslike wall thickening of the ascending colon and a region measuring up to approximately 4.5 cm suspicious for malignancy. Recommend direct visualization and surgical consultation. 3. Moderate to severe stenosis of the right common and right external iliac artery secondary to densely calcified atheroma. 4. Bilateral apical scarring, left greater than right with band like opacity in the left upper lobe similar to the prior examination. 5. Low-attenuation right posterior hepatic lobe lesion is indeterminate, not distinctly assist particularly given the bowel pathology described. Metastatic disease cannot be excluded. 6. Near occlusion of the left common iliac artery secondary to densely calcified atheroma. 7. Multiple nonspecific enlarged mediastinal lymph nodes particularly subcarinal lymph nodes. 8. Colonic diverticulosis without evidence of acute diverticulitis. N.B. : Len Washington DO, confirmed on 04/11/2024 22:14:29 (ET) that the healthcare facility has received the radiology report. Electronically Signed: Jonathan Marx DO at 22:07 EDT , EKG Initial EKG: Attestation: I personally reviewed and interpreted this EKG as follows: Comments: Normal sinus rhythm with an incomplete right bundle branch block ventricular rate of 83 bpm Management Discussion w/another healthcare provider: Hospitalist (Dr Carpenter) and Phd Intern (Dr Silvestre) Discharge Plan Dx/Rx/DC Orders Clinical Impression: Acute lower gastrointestinal bleeding, Chronic hypertension, Elevated troponin, 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, Anemia requiring transfusions, Coronary artery disease Disposition Disposition: Acute Care Hospital [facility]
--- NOTE | 2024-04-11 21:30 | CT_ITS ---
ACR Level 3 findings have been noted. An addendum which confirms receipt of the report will follow. EXAM: CT ANGIOGRAPHY CHEST, ABDOMEN AND PELVIS WITH INTRAVENOUS CONTRAST CLINICAL INDICATION: pulmonary embolism GI Bleeding TECHNIQUE: Helically acquired angiography images were obtained of the chest, abdomen and pelvis with intravenous contrast. This CT exam was performed using one or more of the following dose reduction techniques: automated exposure control, adjustment of the mA and/or kV according to patient size, and/or use of iterative reconstruction technique. MIP reconstructed images were created and reviewed. CONTRAST: IV 100mL [id number] COMPARISON: CT chest, 03/01/2018 FINDINGS: VASCULATURE: AORTA: Atherosclerosis of the aorta without evidence of aneurysm or dissection. PULMONARY ARTERIES: No significant abnormality. Normal in caliber. No obvious central pulmonary embolism although this study was not performed with the pulmonary embolism protocol. GREAT VESSELS OF AORTIC ARCH: No significant abnormality. Normal in caliber. No dissection. CELIAC TRUNK AND MESENTERIC ARTERIES: No significant findings. No occlusion or significant stenosis. No dissection. RENAL ARTERIES: There is an accessory left renal artery. No occlusion or significant stenosis. No dissection. ILIAC ARTERIES: Moderate to severe stenosis of the right common and right external iliac artery secondary to densely calcified atheroma. Near occlusion of the left common iliac artery secondary to densely calcified atheroma. No dissection. CHEST: LUNGS AND PLEURAL SPACES: Bilateral apical scarring, left greater than right with band like opacity in the left upper lobe similar to the prior examination. No mass. No pleural effusion or thickening. No pneumothorax. HEART: No significant abnormality. Heart size is normal. No pericardial effusion. MEDIASTINUM: Multiple nonspecific enlarged mediastinal lymph nodes particularly subcarinal lymph nodes. Esophagus is unremarkable. No hiatal hernia. THYROID: No significant abnormality. No thyroid lesions. ABDOMEN: LIVER: Low-attenuation right posterior hepatic lobe lesion is indeterminate, not distinctly assist particularly given the bowel pathology described. Metastatic disease cannot be excluded. GALLBLADDER AND BILE DUCTS: No significant abnormality. No calcified gallstones. No gallbladder distention or wall edema. No intra- or extrahepatic biliary ductal dilation. PANCREAS: No significant abnormality. No focal cystic or solid mass. SPLEEN: No significant abnormality. Normal size without focal cystic or solid mass. ADRENALS: No significant abnormality. No nodules. KIDNEYS AND URETERS: No significant abnormality. Normal renal size and position. No hydronephrosis. STOMACH AND BOWEL: Masslike wall thickening of the ascending colon and a region measuring up to approximately 4.5 cm suspicious for malignancy. Colonic diverticulosis without evidence of acute diverticulitis. PELVIS: APPENDIX: No evidence of acute appendicitis. BLADDER: No significant abnormality. REPRODUCTIVE: Normal as visualized. No mass. CHEST, ABDOMEN and PELVIS: INTRAPERITONEAL SPACE: No significant abnormality. No ascites or other fluid collection. No free air. BONES/JOINTS: Degenerative changes throughout the visualized axial and appendicular skeletal structures. Median sternotomy. No suspicious lytic or blastic abnormality. SOFT TISSUES: Bilateral fat-containing inguinal hernias and fat-containing umbilical hernia. LYMPH NODES: Mild mesenteric stranding in the right lower quadrant and a few small right lower quadrant lymph nodes are identified. CT/CTA Chst, Abd, Pel W and/or WO IMPRESSION: 1. No evidence of pulmonary artery embolus. 2. Masslike wall thickening of the ascending colon and a region measuring up to approximately 4.5 cm suspicious for malignancy. Recommend direct visualization and surgical consultation. 3. Moderate to severe stenosis of the right common and right external iliac artery secondary to densely calcified atheroma. 4. Bilateral apical scarring, left greater than right with band like opacity in the left upper lobe similar to the prior examination. 5. Low-attenuation right posterior hepatic lobe lesion is indeterminate, not distinctly assist particularly given the bowel pathology described. Metastatic disease cannot be excluded. 6. Near occlusion of the left common iliac artery secondary to densely calcified atheroma. 7. Multiple nonspecific enlarged mediastinal lymph nodes particularly subcarinal lymph nodes. 8. Colonic diverticulosis without evidence of acute diverticulitis. Electronically Signed: Jonathan Marx DO at 22:07 EDT ,
[2024-04-11 21:32] LABS: Absolute Lymphocyte Count 1.15 X10^3/uL (0.83-4.51); Basophil# 0.03 X10^3/uL; Basophil% 0.5 % (0-1); Eosinophil# 0.08 X10^3/uL; Eosinophils% 1.3 % (0-5); Hematocrit 21.3 % (40-54); Hemoglobin 6.7 g/dL (13.0-16.5); Lymphocyte # 1.15 X10^3/ul (0.83-4.51); Mean Corp Hgb Conc 31.5 g/dL (32-36); Mean Corpuscular Hgb 26.7 pg (27.0-32.0); Mean Corpuscular Volume 84.9 fL (80-94); Mean Platelet Vol. 9.5 fl (6.2-12.0); Monocyte# 0.79 X10^3/uL; Monocyte% 13.1 % (0-10); NRBC Flagged by Analyzer 0 % (0-5); Neutrophil # 3.96 X10^3/uL (2.7-7.7); Neutrophil % 65.6 % (47-70); Platelet Count 304 K/mm3 (150-450); RBC Distribution Width CV 13.2 % (11.6-14.6); RBC Distribution Width SD 40.7 fl (35.1-43.9); Red Blood Count 2.51 M/mm3 (4.6-6.2)
[2024-04-11 21:42] LABS: International Normalized Ratio 1.1; Partial Thromboplast Time 27.9 Seconds (24.1-36.2); Prothrombin Time (Protime)PT. 13.8 SECONDS (11.7-14.9)
[2024-04-11 21:51] LABS: AST(SGOT) 15 U/L (15-37); Alanine Aminotransfer ALT/SGPT 18 U/L (16-61); Albumin, Serum 3.4 g/dL (3.2-5.0); Alkaline Phosphatase 87 U/L (45-117); Anion Gap 10 (5-15); BUN 18 mg/dL (7-18); BUN/Creat Ratio 13.8 RATIO (10-20); Bilirubin, Direct 0.09 mg/dL (0.00-0.30); Calcium,Total 8.7 mg/dL (8.5-10.1); Chloride 105 mmol/L (98-107); EST Glomerular Filtration Rate 56 mL/min (>60); Est Glom Filt Rate - Afr Amer 68 mL/min (>60); Estimated Creatinine Clearance 45.94 ml/min; Globulin 3.2 g/dL (2.2-4.2); Glucose 123 mg/dL (74-106); Lipase 29 U/L (13-75); Potassium 3.7 mmol/L (3.5-5.1); Protein, Total 6.6 g/dL (6.4-8.2); Sodium Level 141 mmol/L (136-145); Troponin-I HS 124 pg/mL (3.0-78.0)
--- NOTE | 2024-04-11 22:19 | ED.RN ---
Pt is non compliant with meds, this RN educated the patient.
--- NOTE | 2024-04-11 22:48 | ED.RN ---
Pt has his own dose of amlodipine and Dr boyd verbally stated that the pt is able to take his home med. This RN witnessed the pt take his home med, 10 mg of amlodipine. This RN verified the label and the pill.
--- NOTE | 2024-04-11 23:43 | HP.PCM.HOS_ITS ---
[facility] - General General Date of Admission: 04/12/24 Date of Service: 04/11/24 Chief Complaint: BRBPR followed by Chest Pain with Activity. HPI Narrative JARED PEREZ, is a 79 M with a past medical history of essential hypertension, overweight; with BMI of 27.6 this admission, history of tobacco abuse, CAD; s/p CABG x 5, history of TIA/CVA, PVD; with claudication of both LE's, neuropathy, medical noncompliance, chronic constipation, history of appendectomy, remote history of colonoscopy ~10 years ago; with polyp noted at that time and OA who presents to [facility] ER complaining of BRBPR followed by chest pain with activity. Mr. Perez reports his acute symptoms began approximately 3 days prior to admission with the gradual-onset of progressively worsening CARRILLO accompanied by a burning sensation in his chest and an aching pain in his legs that all improve with rest. He then went to see his PCP earlier on 04/11/2024 and was noted to have significant anemia with a hemoglobin of 7.2 g/dL with a slightly elevated troponin and d-dimer of 2 so he was sent in to the ER for further evaluation and treatment. He does admit to recently using Epsom salts as a laxative to strip his colon ~2 days ago with an unfortunate side effect of passing a large volume of BRBPR. He then had a normal BM with no obvious bleeding. He denies associated fever, chills, nausea, vomiting, abdominal pain, rectal pain or black stools but he does admit to not taking his blood pressure medications until his systolic blood pressure is > 180 mmHg at which point he takes an oral Amlodipine prn. In the ER he was noted to have laboratory evidence of ABLA with BRBPR requiring transfusion with hemoglobin of 6.7 g/dL present on admission complicated by abdominal CT this admission positive for Masslike wall thickening of the Ascending Colon up to ~4.5 cm suspicious for malignancy compounded by an Elevated troponin of 123 pg/mL present on admission likely due to Acute Cardiac Strain in the setting of previously known CAD; s/p CABG with a history of Tobacco Abuse with Chronic LE Claudication and he was then admitted to the PCU for ongoing care for a stay that is expected to extend beyond 2 midnights. [facility] Medical History (Updated 04/12/24 @ 01:[address] Darrel Carpenter DO) History of stroke Acute alteration in mental status Neuropathy Vasectomy planned Tonsillectomy planned Hyponatremia TIA (transient ischemic attack) CVA (cerebral vascular accident) Hypertension Home Medications ?Medication ?Instructions ?Recorded ?Last Taken ?Type amlodipine 5 mg tablet 10 mg PO DAILY PRN bp 04/11/24 Unknown History Allergy/AdvReac Type Severity Reaction Status Date / Time No Known Allergies Allergy Verified 04/11/24 20:22 Surgical History History of appendectomy Hx of CABG Social History Smoking Status: Former smoker ROS ROS Narrative Review of systems: General: Patient fever or chills. HENT: Denies headache, denies stuffy nose, denies sore throat EYES: Denies changes in vision or discharge from eyes. Resp: Patient admits to dyspnea on exertion with burning in chest but he denies cough. Cardiac: Patient admits to chest pain with exertion but denies palpitations or heart racing. GI: Patient admits to bright red blood per rectum after Epsom salt laxative taken orally. He denies abdominal pain, nausea, vomiting or diarrhea. : Denies changes in urination Extremity: Denies swelling Musculoskeletal: Patient admits to pain in legs made worse with exertion but he denies arthralgias. Neuro: Patient denies headache or focal neurologic deficits but he does admit to neuropathic type pain in both lower extremities that worsens with exertion and improves with rest. Heme: Patient admits to large BRBPR approximately 2 days ago. Skin: Denies rashes Psychiatric: No complaints voiced related to uncontrolled depression or anxiety. Endocrine: No polyuria, polydipsia or polyphagia. The rest of the 14 point ROS was negative except for positives in HPI. Vital Signs Vital Signs Vital Signs: 04/11/24 20:20 04/11/24 20:56 04/11/24 21:20 Temperature 97.8 F Temperature Source Temporal Pulse Rate 84 77 Pulse Rate [Lying] Pulse Rate [Sitting (for 1 minute prior to obtaining)] Pulse Rate [Standing (for 1 minute prior to obtaining)] Respiratory Rate 18 18 Respiratory Effort Normal Non-Labored Blood Pressure 188/83 H 174/68 H Blood Pressure [Lying] Blood Pressure [Sitting (for 1 minute prior to obtaining)] Blood Pressure [Standing (for 1 minute prior to obtaining)] Blood Pressure Mean 118 103 Blood Pressure Mean [Lying] Blood Pressure Mean [Sitting (for 1 minute prior to obtaining)] Blood Pressure Mean [Standing (for 1 minute prior to obtaining)] Blood Pressure Source Blood Pressure Position Blood Pressure Location Pulse Ox 99 94 Oxygen Delivery Method Room Air 04/11/24 22:00 04/11/24 22:11 04/11/24 23:00 Temperature Temperature Source Pulse Rate 81 76 Pulse Rate [Lying] 83 Pulse Rate [Sitting (for 1 minute prior to obtaining)] 83 Pulse Rate [Standing (for 1 minute prior to obtaining)] 92 Respiratory Rate 17 18 Respiratory Effort Blood Pressure 191/76 H 189/78 H Blood Pressure [Lying] 182/79 H Blood Pressure [Sitting (for 1 minute prior to obtaining)] 184/77 H Blood Pressure [Standing (for 1 minute prior to obtaining)] 188/79 H Blood Pressure Mean 114 115 Blood Pressure Mean [Lying] 113 Blood Pressure Mean [Sitting (for 1 minute prior to obtaining)] 112 Blood Pressure Mean [Standing (for 1 minute prior to obtaining)] 115 Blood Pressure Source Blood Pressure Position Blood Pressure Location Pulse Ox 94 100 Oxygen Delivery Method Room Air 04/11/24 23:20 04/11/24 23:23 04/11/24 23:28 Temperature 98.9 F 98.9 F 98.9 F Temperature Source Axillary Axillary Pulse Rate 78 76 87 Pulse Rate [Lying] Pulse Rate [Sitting (for 1 minute prior to obtaining)] Pulse Rate [Standing (for 1 minute prior to obtaining)] Respiratory Rate 23 H 21 H 17 Respiratory Effort Blood Pressure 189/78 H 189/78 H 189/78 H Blood Pressure [Lying] Blood Pressure [Sitting (for 1 minute prior to obtaining)] Blood Pressure [Standing (for 1 minute prior to obtaining)] Blood Pressure Mean 115 115 115 Blood Pressure Mean [Lying] Blood Pressure Mean [Sitting (for 1 minute prior to obtaining)] Blood Pressure Mean [Standing (for 1 minute prior to obtaining)] Blood Pressure Source Monitor Monitor Blood Pressure Position Semi-Fowlers Semi-Fowlers Blood Pressure Location Right Arm Right Arm Pulse Ox 100 97 99 Oxygen Delivery Method Room Air Room Air 04/11/24 23:38 Temperature 98.1 F Temperature Source Axillary Pulse Rate 76 Pulse Rate [Lying] Pulse Rate [Sitting (for 1 minute prior to obtaining)] Pulse Rate [Standing (for 1 minute prior to obtaining)] Respiratory Rate 21 H Respiratory Effort Blood Pressure 189/73 H Blood Pressure [Lying] Blood Pressure [Sitting (for 1 minute prior to obtaining)] Blood Pressure [Standing (for 1 minute prior to obtaining)] Blood Pressure Mean 111 Blood Pressure Mean [Lying] Blood Pressure Mean [Sitting (for 1 minute prior to obtaining)] Blood Pressure Mean [Standing (for 1 minute prior to obtaining)] Blood Pressure Source Monitor Blood Pressure Position Semi-Fowlers Blood Pressure Location Right Arm Pulse Ox 100 Oxygen Delivery Method Room Air Weight Weight: 176 lb 7 oz Body Mass Index (BMI) 27.6 Physical Exam Const alert, oriented x3, no apparent distress, average body habitus and healthy appearing General Appearance: cooperative HEENT normocephalic, head/scalp atraumatic, hearing grossly normal bilaterally and moist oral mucous membranes Eyes PERRL and EOMs intact bilaterally Neck no lymphadenopathy and supple Resp normal respiratory effort, no retractions, no use of accessory muscles and clear to auscultation bilaterally Cardio regular rate and regular rhythm GI normal to inspection, nondistended, normoactive bowel sounds, soft to palpation, non-tender and non-distended Extremity normal to inspection, full ROM and no clubbing, cyanosis or edema Skin Skin Narrative: Patient has no evidence of rash, abscess or jaundice. Neuro oriented x3, CN's II-XII intact bilaterally, moves all extremities and no focal motor deficits Sensorium / Orientation: awake, alert, oriented to person, oriented to place and oriented to time Speech: speech normal Psych affect normal Results Medical Records Data Attestation: I reviewed the patient's medical records Lab / Micro Data Attestation: I reviewed the patient's lab results. 04/11/24 20:46 04/11/24 20:46 Labs: Laboratory Results - last 24 hr 04/11/24 20:43: Crossmatch See Detail 04/11/24 20:46: WBC 6.0, RBC 2.51 L, Hgb 6.7 L, Hct 21.3 L, MCV 84.9, MCH 26.7 L , MCHC 31.5 L, RDW Std Deviation 40.7, RDW Coeff of [place]ika 13.2, Plt Count 304, MPV 9.5, Immature Gran % (Auto) 0.500, Neut % (Auto) 65.6, Lymph % (Auto) 19.0, [place] % (Auto) 13.1 H, Eos % (Auto) 1.3, Baso % (Auto) 0.5, Absolute Neuts (auto) 4.0, Absolute Lymphs (auto) 1.15, Nucleated RBC % 0, PT 13.8, INR 1.1, APTT 27.9, Sodium 141, Potassium 3.7, Chloride 105, Carbon Dioxide 26.0, Anion Gap 10, BUN 18, Creatinine 1.30, Estim Creat Clear Calc 45.94, Est GFR (MDRD) Af Amer 68, E st GFR (MDRD) Non-Af 56 L, BUN/Creatinine Ratio 13.8, Glucose 123 H, Calcium 8.7, Total Bilirubin 0.30, Direct Bilirubin 0.09, AST 15, ALT 18, Alkaline Phosphatase 87, Troponin I High Sens 124 H*, Total Protein 6.6, Albumin 3.4, Globulin 3.2, Lipase 29, Blood Type O POSITIVE, Antibody Screen NEGATIVE Imaging Radiology Impression Chest/Abdomen/Pelvis CTA 04/11/24 21:30 IMPRESSION: 1. No evidence of pulmonary artery embolus. 2. Masslike wall thickening of the ascending colon and a region measuring up to approximately 4.5 cm suspicious for malignancy. Recommend direct visualization and surgical consultation. 3. Moderate to severe stenosis of the right common and right external iliac artery secondary to densely calcified atheroma. 4. Bilateral apical scarring, left greater than right with band like opacity in the left upper lobe similar to the prior examination. 5. Low-attenuation right posterior hepatic lobe lesion is indeterminate, not distinctly assist particularly given the bowel pathology described. Metastatic disease cannot be excluded. 6. Near occlusion of the left common iliac artery secondary to densely calcified atheroma. 7. Multiple nonspecific enlarged mediastinal lymph nodes particularly subcarinal lymph nodes. 8. Colonic diverticulosis without evidence of acute diverticulitis. Electronically Signed: Jonathan Marx DO at 22:07 EDT , ADDENDUM: 04/11/244 IMPRESSION: 1. No evidence of pulmonary artery embolus. 2. Masslike wall thickening of the ascending colon and a region measuring up to approximately 4.5 cm suspicious for malignancy. Recommend direct visualization and surgical consultation. 3. Moderate to severe stenosis of the right common and right external iliac artery secondary to densely calcified atheroma. 4. Bilateral apical scarring, left greater than right with band like opacity in the left upper lobe similar to the prior examination. 5. Low-attenuation right posterior hepatic lobe lesion is indeterminate, not distinctly assist particularly given the bowel pathology described. Metastatic disease cannot be excluded. 6. Near occlusion of the left common iliac artery secondary to densely calcified atheroma. 7. Multiple nonspecific enlarged mediastinal lymph nodes particularly subcarinal lymph nodes. 8. Colonic diverticulosis without evidence of acute diverticulitis. N.B. : Len Washington DO, confirmed on 04/11/2024 22:14:29 (ET) that the healthcare facility has received the radiology report. Electronically Signed: Jonathan Marx DO at 22:07 EDT , Assessment & Plan Assessment/Plan (1) ABLA (acute blood loss anemia): (2) Colonic mass: (3) Elevated troponin: (4) Coronary artery disease: QUALIFIERS: Associated angina: with stable angina Coronary Disease-Associated Artery/Lesion type: [place] artery [place] vs. transplanted heart: [place] heart Qualified Code(s): I25.118 - Atherosclerotic heart disease of [place] coronary artery with other forms of angina pectoris (5) 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: QUALIFIERS: Peripheral atherosclerosis artery type: [place] artery Qualified Code(s): I70.213 - Atherosclerosis of [place] arteries of extremities with intermittent claudication, bilateral legs (6) Chronic hypertension: (7) History of stroke: (8) Overweight (BMI 25.0-29.9): PLAN: Plan 1. ABLA with BRBPR requiring transfusion with hemoglobin of 6.7 g/dL present on admission - Admit to PCU. Proceed with transfusion of blood ordered in the ER and recheck CBC after last unit to ensure improvement. 2. CT this admission positive for Masslike wall thickening of the Ascending Colon up to ~4.5 cm suspicious for malignancy with a possible metastatic lesion noted in liver likely causing #1 in the setting of known colonic polyposis on colonoscopy ~10 years ago - We will consult gastroenterology and general surgery to see this patient on-rounds in the AM for further recommendations with the help of both groups appreciated in advance. 3. Elevated troponin of 123 pg/mL present on admission likely due to Acute Cardiac Strain arising from #1 & #2 in the setting of previously known CAD; s/p CABG x 5 - Serialize troponin to follow trend. Check echocardiogram to evaluate LVEF. 4. History of Tobacco Abuse with Chronic PVD; with Bilateral LE Claudication and Neuropathy adding to the complexity of #1 - #3 - Tobacco Cessation will be strongly encouraged with Nicotine patch to be offered if nedeed to control cravings. 5. Essential hypertension - Hold scheduled antihypertensives in light of #1. Give Hydralazine IV prn for systolic blood pressure > 160 mmHg. 6. Overweight; with BMI of 27.6 this admission - Weight loss will be recommended. Check TSH. 7. History of TIA/CVA - Noted. 8. Chronic constipation - Noted. 9. History of appendectomy - Noted. 10. OA - Give Tylenol prn. 11. DVT prophylaxis - SCD's only in light of #1. Total time: Approximately 75 minutes. Charges/Coding Visit Charges Inpatient E&M: 03335 Init Hosp L3
[2024-04-12] VITALS (17 sets, daily range): BP systolic 102–185; BP diastolic 45–89; PULSE 46–86; RESP 14–21; TEMP 36–36.8; O2SAT 95–100; BMI 26.4
[2024-04-12 02:27] LABS: Ferritin 17 ng/mL (26-388); Iron 16 ug/dL (65-175); Iron Binding Capacity,Total 387 ug/dL (250-450); PERCENT IRON SATURATION 4.1 % (15.0-55.0)
[2024-04-12] MEDS: 0.9% Normal Saline (1000mL) 1,000 ML 30 ML IV (03:50)
[2024-04-12] MEDS: Furosemide 40 MG/4 ML Vial IV (03:51)
[2024-04-12 05:34] LABS: Absolute Lymphocyte Count 1.44 X10^3/uL (0.83-4.51); Absolute Neutrophil Count 3.5 X10^3/uL (2.0-7.7); Basophil# 0.02 X10^3/uL; Basophil% 0.4 % (0-1); Eosinophils% 1.8 % (0-5); Hematocrit 32.7 % (40-54); Hemoglobin 10.5 g/dL (13.0-16.5); Lymphocyte # 1.44 X10^3/ul (0.83-4.51); Lymphocyte % 25.3 % (19-41); Mean Corp Hgb Conc 32.1 g/dL (32-36); Mean Corpuscular Hgb 27.5 pg (27.0-32.0); Mean Corpuscular Volume 85.6 fL (80-94); Mean Platelet Vol. 9.2 fl (6.2-12.0); Monocyte% 10.5 % (0-10); NRBC Flagged by Analyzer 0 % (0-5); Neutrophil # 3.51 X10^3/uL (2.7-7.7); Neutrophil % 61.5 % (47-70); Platelet Count 314 K/mm3 (150-450); RBC Distribution Width CV 13.3 % (11.6-14.6); RBC Distribution Width SD 41.6 fl (35.1-43.9); Red Blood Count 3.82 M/mm3 (4.6-6.2); White Blood Count 5.7 K/mm3 (4.4-11.0)
[2024-04-12 06:01] LABS: ALB/GLOB Ratio 1.1 RATIO (0.9-2.4); AST(SGOT) 20 U/L (15-37); Alanine Aminotransfer ALT/SGPT 22 U/L (16-61); Albumin, Serum 3.8 g/dL (3.2-5.0); Alkaline Phosphatase 88 U/L (45-117); Anion Gap 4 (5-15); BUN 16 mg/dL (7-18); BUN/Creat Ratio 13.7 RATIO (10-20); Calcium,Total 8.9 mg/dL (8.5-10.1); Chloride 104 mmol/L (98-107); Creatinine, Serum 1.17 mg/dL (0.70-1.30); EST Glomerular Filtration Rate 64 mL/min (>60); Est Glom Filt Rate - Afr Amer 77 mL/min (>60); Estimated Creatinine Clearance 48.72 ml/min; Globulin 3.5 g/dL (2.2-4.2); Glucose 98 mg/dL (74-106); Magnesium 2.1 mg/dL (1.6-2.6); Phosphorus 3.5 mg/dL (2.5-4.9); Potassium 3.5 mmol/L (3.5-5.1); Protein, Total 7.3 g/dL (6.4-8.2); Sodium Level 137 mmol/L (136-145)
[2024-04-12 06:34] LABS: Prothrombin Time (Protime)PT. 13.1 SECONDS (11.7-14.9)
[2024-04-12 07:30] LABS: Partial Thromboplast Time 27.7 Seconds (24.1-36.2)
--- NOTE | 2024-04-12 09:07 | PCM.PN.HOSP ---
Reason for Visit Reason for Visit: Diagnoses Acute posthemorrhagic anemia (04/12/24) Overweight (04/12/24) Essential (primary) hypertension (04/12/24) Atherosclerotic heart disease of [place] coronary artery with other forms of angina pectoris (04/12/24) Atherosclerosis of [place] arteries of extremities with intermittent claudication, bilateral legs (04/12/24) Other specified diseases of intestine (04/12/24) Other specified abnormal findings of blood chemistry (04/12/24) Personal history of transient ischemic attack (TIA), and cerebral infarction without residual deficits (04/12/24) Subjective Subjective Feeling well. Objective Data Objective Data Vital Signs: Vital Signs Temp Pulse Resp BP Pulse Ox O2 Del Method 36.4 C L 64 18 157/71 H 99 Room Air 04/12/24 08:15 04/12/24 08:15 04/12/24 08:15 04/12/24 08:15 04/12/24 08:15 04/12/24 08:15 Oxygen Delivery Method Room Air Weight: 78.8 kg Body Mass Index (BMI) 26.4 Intake & Output: Intake and Output for Last 24 Hours 04/10/24 04/11/24 04/12/24 23:59 23:59 23:59 Intake Total 0 / 0 Balance 0 / 0 Lab / Micro Data 04/12/24 05:18 04/12/24 05:18 Labs: Laboratory Results - last 24 hr 04/11/24 20:43: Crossmatch See Detail 04/11/24 20:46: WBC 6.0, RBC 2.51 L, Hgb 6.7 L, Hct 21.3 L, MCV 84.9, MCH 26.7 L, MCHC 31.5 L, RDW Std Deviation 40.7, RDW Coeff of Deepika 13.2, Plt Count 304, MPV 9.5, Immature Gran % (Auto) 0.500, Neut % (Auto) 65.6, Lymph % (Auto) 19.0, [place] % (Auto) 13.1 H, Eos % (Auto) 1.3, Baso % (Auto) 0.5, Absolute Neuts (auto) 4.0, Absolute Lymphs (auto) 1.15, Nucleated RBC % 0, PT 13.8, INR 1.1, APTT 27.9, Sodium 141, Potassium 3.7, Chloride 105, Carbon Dioxide 26.0, Anion Gap 10, BUN 18, Creatinine 1.30, Estim Creat Clear Calc 45.94, Est GFR (MDRD) Af Amer 68, Est GFR (MDRD) Non-Af 56 L, BUN/Creatinine Ratio 13.8, Glucose 123 H, Calcium 8.7, Total Bilirubin 0.30, Direct Bilirubin 0.09, AST 15, ALT 18, Alkaline Phosphatase 87, Troponin I High Sens 124 H*, Total Protein 6.6, Albumin 3.4, Globulin 3.2, Lipase 29, Blood Type O POSITIVE, Antibody Screen NEGATIVE 04/11/24 23:40: Iron 16 L, TIBC 387, Iron Saturation 4.1 L, Ferritin 17 L 04/12/24 05:18: WBC 5.7, RBC 3.82 L, Hgb 10.5 L, Hct 32.7 L, MCV 85.6, MCH 27.5, MCHC 32.1, RDW Std Deviation 41.6, RDW Coeff of Deepika 13.3, Plt Count 314, MPV 9.2, Immature Gran % (Auto) 0.500, Neut % (Auto) 61.5, Lymph % (Auto) 25.3, [place] % (Auto) 10.5 H, Eos % (Auto) 1.8, Baso % (Auto) 0.4, Absolute Neuts (auto) 3.5, Absolute Lymphs (auto) 1.44, Nucleated RBC % 0, PT 13.1, INR 1.0, APTT 27.7, Sodium 137, Potassium 3.5, Chloride 104, Carbon Dioxide 29.0, Anion Gap 4 L, BUN 16, Creatinine 1.17, Estim Creat Clear Calc 48.72, Est GFR (MDRD) Af Amer 77, Est GFR (MDRD) Non-Af 64, BUN/Creatinine Ratio 13.7, Glucose 98, Calcium 8.9, Phosphorus 3.5, Magnesium 2.1, Total Bilirubin 0.90, AST 20, ALT 22, Alkaline Phosphatase 88, Total Protein 7.3, Albumin 3.8, Globulin 3.5, Albumin/Globulin Ratio 1.1, TSH 3.360 Radiography Diagnostic Testing: Radiology Impression Chest/Abdomen/Pelvis CTA 04/11/24 21:30 IMPRESSION: 1. No evidence of pulmonary artery embolus. 2. Masslike wall thickening of the ascending colon and a region measuring up to approximately 4.5 cm suspicious for malignancy. Recommend direct visualization and surgical consultation. 3. Moderate to severe stenosis of the right common and right external iliac artery secondary to densely calcified atheroma. 4. Bilateral apical scarring, left greater than right with band like opacity in the left upper lobe similar to the prior examination. 5. Low-attenuation right posterior hepatic lobe lesion is indeterminate, not distinctly assist particularly given the bowel pathology described. Metastatic disease cannot be excluded. 6. Near occlusion of the left common iliac artery secondary to densely calcified atheroma. 7. Multiple nonspecific enlarged mediastinal lymph nodes particularly subcarinal lymph nodes. 8. Colonic diverticulosis without evidence of acute diverticulitis. Electronically Signed: Jonathan Marx DO at 22:07 EDT , ADDENDUM: 04/11/242220 IMPRESSION: 1. No evidence of pulmonary artery embolus. 2. Masslike wall thickening of the ascending colon and a region measuring up to approximately 4.5 cm suspicious for malignancy. Recommend direct visualization and surgical consultation. 3. Moderate to severe stenosis of the right common and right external iliac artery secondary to densely calcified atheroma. 4. Bilateral apical scarring, left greater than right with band like opacity in the left upper lobe similar to the prior examination. 5. Low-attenuation right posterior hepatic lobe lesion is indeterminate, not distinctly assist particularly given the bowel pathology described. Metastatic disease cannot be excluded. 6. Near occlusion of the left common iliac artery secondary to densely calcified atheroma. 7. Multiple nonspecific enlarged mediastinal lymph nodes particularly subcarinal lymph nodes. 8. Colonic diverticulosis without evidence of acute diverticulitis. N.B. : Len Washington DO, confirmed on 04/11/2024 22:14:29 (ET) that the healthcare facility has received the radiology report. Electronically Signed: Jonathan Marx DO at 22:07 EDT , Physical Exam Const alert and no apparent distress HEENT head/scalp atraumatic and moist oral mucous membranes Resp normal respiratory effort, no retractions, no use of accessory muscles and clear to auscultation bilaterally Cardio regular rate, regular rhythm, S1 normal heart sound and S2 normal heart sound GI normal to inspection, nondistended, normoactive bowel sounds, soft to palpation, non-tender and non-distended Extremity normal to inspection, full ROM and no clubbing, cyanosis or edema Assessment & Plan Assessment/Plan (1) ABLA (acute blood loss anemia): (2) Colonic mass: (3) Elevated troponin: (4) Coronary artery disease: QUALIFIERS: Associated angina: with stable angina Coronary Disease-Associated Artery/Lesion type: [place] artery [place] vs. transplanted heart: [place] heart Qualified Code(s): I25.118 - Atherosclerotic heart disease of [place] coronary artery with other forms of angina pectoris (5) 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: QUALIFIERS: Peripheral atherosclerosis artery type: [place] artery Qualified Code(s): I70.213 - Atherosclerosis of [place] arteries of extremities with intermittent claudication, bilateral legs (6) Chronic hypertension: (7) History of stroke: (8) Overweight (BMI 25.0-29.9): PLAN: Plan ABLA Hemoglobin dropped down to 6.7. Status post 2 units of packed red blood cells and hemoglobin up to 10.5. Due to GI bleed. GI bleed CT showed a 4.5 cm mass suspicious for malignancy in the ascending colon. Continue to monitor Colon mass 4.5 cm ascending colon mass GI and general surgery on consultation. Elevated troponins 123 May be due to demand ischemia from the anemia Check echocardiogram Chronic conditions Chronic PVD: Stable Hypertension: Continue with amlodipine History of TIA/CVA: VTE prophylaxis with SCDs Charges/Coding Visit Charges Inpatient E&M: 94411 Subs Hosp L2
[2024-04-12] MEDS: Pantoprazole Sodium 40 MG in 0.9% Normal Saline (100mL MB+) 100 ML 330 MG IV (10:02)
--- NOTE | 2024-04-12 10:41 | CON.PCM.SX_ITS ---
Assessment & Plan Assessment/Plan (1) Colonic mass: PLAN: I have been consulted in conjunction with Dr. Thomas. He has independently evaluate this patient. Patient presenting with elevated troponin levels, decreased hemoglobin, bright red rectal bleeding, bilateral extremity pain and right-sided chest pain. CTA is showing a colonic mass in the ascending colon, among other results relayed above. Gastroenterology has been consulted to evaluate this patient for a colonoscopy possible upper scope. We will await the pathology results and description of the mass from GI prior to further discussing a colectomy. Patient has had the opportunity to ask and have questions answered. Patient verbally understands and agrees with the plan. We have discouraged the patient from performing any further colon stripping with Epsom salts. Thank you for allowing us to participate in this patient's care. HPI Consult Data Date of Consult: 04/12/24 HPI Narrative Reason for Consultation: Possible colon mass; lower GI bleed HPI Narrative: JARED PEREZ, is a 79 M who presents with bilateral numbness in his lower extremities and right-sided chest pain. Patient states he also had an episode of bright red rectal bleeding 3 days prior. Patient states he had lab work as an outpatient which returned his Hgb at 7.2. It was recommended by his PCP to proceed to the ED. Patient notes his right-sided chest pain felt like symptoms prior to his 5 vessel cardiac bypass surgery 5 years ago. Patient notes this operation was completed at [facility]. He notes following with a watch repair technician for 1 year after and he has not been evaluated since that time. Patient notes he was recently evaluated by vascular medicine, who was considering placing stents per patient. Patient notes since having 2 units of PRBC the patient's symptomatic bilateral lower extremity pain has resolved. Patient notes he was on amlodipine, however has stopped that medication due to low blood pressure. Patient also states he has had 5 previous strokes. His last stroke was prior to his bypass surgery. He denies any deficits from his strokes except for his loss of meditation. Patient denies being on any blood thinners. Patient described recent episode of bright red rectal bleeding. He noted this occurred approximately 3 days prior to this admission. Patient notes he had a significant amount of blood in the toilet. Patient states he has a slow transit time with bowel habits. Patient notes he does colon stripping every 30 days with Epsom salts. He states he has been performing this for 15 years since having wheat poison. Patient notes 2 months ago he had a small amount of rectal bleeding during his colon stripping. He notes having to strain slightly which he attributed the bleeding to hemorrhoids. Patient had also described to me about using hydrochloric acid and then purging to reset his digestive tract. Patient had described sitting in the ED parking lot while performing this event as it would cause his blood pressure to elevate into 240's-300's and he was afraid it would cause a stroke. Patient notes his last colonoscopy was greater than 10 years ago. He notes a removal of 1 small polyp. He denies any family history of colon cancer. He denies any recent weight loss or appetite change. CTA of the chest/ab/pel demonstrated the following: IMPRESSION: 1. No evidence of pulmonary artery embolus. 2. Masslike wall thickening of the ascending colon and a region measuring up to approximately 4.5 cm suspicious for malignancy. Recommend direct visualization and surgical consultation. 3. Moderate to severe stenosis of the right common and right external iliac artery secondary to densely calcified atheroma. 4. Bilateral apical scarring, left greater than right with band like opacity in the left upper lobe similar to the prior examination. 5. Low-attenuation right posterior hepatic lobe lesion is indeterminate, not distinctly assist particularly given the bowel pathology described. Metastatic disease cannot be excluded. 6. Near occlusion of the left common iliac artery secondary to densely calcified atheroma. 7. Multiple nonspecific enlarged mediastinal lymph nodes particularly subcarinal lymph nodes. 8. Colonic diverticulosis without evidence of acute diverticulitis. Admission Hgb was 6.7. Two units of PRBC were given with current Hgb being 10.5. FORMERLY [facility], [facility]–1983 Medical History (Updated 04/12/24 @ 01:[address] Darrel Carpenter DO) History of stroke Acute alteration in mental status Neuropathy Vasectomy planned Tonsillectomy planned Hyponatremia TIA (transient ischemic attack) CVA (cerebral vascular accident) Hypertension Home Medications ?Medication ?Instructions ?Recorded ?Last Taken ?Type amlodipine 5 mg tablet 10 mg PO DAILY PRN bp 04/11/24 Unknown History Allergy/AdvReac Type Severity Reaction Status Date / Time No Known Allergies Allergy Verified 04/11/24 20:22 Surgical History History of appendectomy Hx of CABG Social History Smoking Status: Former smoker ROS Constitutional Constitutional: Reports fatigue and malaise Eyes Eyes: Reports systems reviewed and no addt'l complaints, except as documented ENT HEENT: Reports systems reviewed and no addt'l complaints, except as documented Cardiovascular Cardiovascular: Reports systems reviewed and no addt'l complaints, except as documented Respiratory/Chest Respiratory/Chest: Reports systems reviewed and no addt'l complaints, except as documented Gastrointestinal Gastrointestinal: Reports systems reviewed and no addt'l complaints, except as documented Genitourinary Genitourinary: Reports systems reviewed and no addt'l complaints, except as documented Musculoskeletal Musculoskeletal: Reports systems reviewed and no addt'l complaints, except as documented Integumentary Integumentary: Reports systems reviewed and no addt'l complaints, except as documented Neurologic Neurologic: Reports systems reviewed and no addt'l complaints, except as documented Psychiatric Psychiatric: Reports systems reviewed and no addt'l complaints, except as documented Endocrine Endocrinology: Reports systems reviewed and no addt'l complaints, except as documented Hematologic/Lymphatic Hematologic/Lymphatic: Reports systems reviewed and no addt'l complaints, except as documented Allergic/Immunologic Allergic/Immunologic: Reports systems reviewed and no addt'l complaints, except as documented Physical Exam Const alert, oriented x3 and no apparent distress HEENT normocephalic and head/scalp atraumatic Eyes PERRL Neck full ROM Chest inspection of chest normal Resp normal respiratory effort and clear to auscultation bilaterally Cardio Rate: regular rate Rhythm: regular rhythm Heart Sounds: murmur GI GI Narrative: Abdomen- soft, nontender. Positive bowel sounds. Right lower quadrant with notation of healed incision from appendectomy. no CVA tenderness Back/Spine no CVA tenderness Extremity normal to inspection Skin General Skin Exam: ecchymosis Neuro no focal motor deficits and no sensory deficits noted Psych mental status grossly normal and cooperative Lab / Micro Data 04/12/24 05:18 04/12/24 05:18 Labs: Laboratory Results - last 24 hr 04/11/24 20:43: Crossmatch See Detail 04/11/24 20:46: WBC 6.0, RBC 2.51 L, Hgb 6.7 L, Hct 21.3 L, MCV 84.9, MCH 26.7 L , MCHC 31.5 L, RDW Std Deviation 40.7, RDW Coeff of Deepika 13.2, Plt Count 304, MPV 9.5, Immature Gran % (Auto) 0.500, Neut % (Auto) 65.6, Lymph % (Auto) 19.0, [place] % (Auto) 13.1 H, Eos % (Auto) 1.3, Baso % (Auto) 0.5, Absolute Neuts (auto) 4.0, Absolute Lymphs (auto) 1.15, Nucleated RBC % 0, PT 13.8, INR 1.1, APTT 27.9, Sodium 141, Potassium 3.7, Chloride 105, Carbon Dioxide 26.0, Anion Gap 10, BUN 18, Creatinine 1.30, Estim Creat Clear Calc 45.94, Est GFR (MDRD) Af Amer 68, E st GFR (MDRD) Non-Af 56 L, BUN/Creatinine Ratio 13.8, Glucose 123 H, Calcium 8.7, Total Bilirubin 0.30, Direct Bilirubin 0.09, AST 15, ALT 18, Alkaline Phosphatase 87, Troponin I High Sens 124 H*, Total Protein 6.6, Albumin 3.4, Globulin 3.2, Lipase 29, Blood Type O POSITIVE, Antibody Screen NEGATIVE 04/11/24 23:40: Iron 16 L, TIBC 387, Iron Saturation 4.1 L, Ferritin 17 L 04/12/24 05:18: WBC 5.7, RBC 3.82 L, Hgb 10.5 L, Hct 32.7 L, MCV 85.6, MCH 27.5, MCHC 32.1, RDW Std Deviation 41.6, RDW Coeff of Deepika 13.3, Plt Count 314, MPV 9.2, Immature Gran % (Auto) 0.500, Neut % (Auto) 61.5, Lymph % (Auto) 25.3, [place] % (Auto) 10.5 H, Eos % (Auto) 1.8, Baso % (Auto) 0.4, Absolute Neuts (auto) 3.5, Absolute Lymphs (auto) 1.44, Nucleated RBC % 0, PT 13.1, INR 1.0, APTT 27.7, Sodium 137, Potassium 3.5, Chloride 104, Carbon Dioxide 29.0, Anion Gap 4 L, BUN 16, Creatinine 1.17, Estim Creat Clear Calc 48.72, Est GFR (MDRD) Af Amer 77, Est GFR (MDRD) Non-Af 64, BUN/Creatinine Ratio 13.7, Glucose 98, Calcium 8.9, Phosphorus 3.5, Magnesium 2.1, Total Bilirubin 0.90, AST 20, ALT 22, Alkaline Phosphatase 88, Total Protein 7.3, Albumin 3.8, Globulin 3.5, Albumin/Globulin Ratio 1.1, TSH 3.360 Imaging Radiology Impression Chest/Abdomen/Pelvis CTA 04/11/24 21:30 IMPRESSION: 1. No evidence of pulmonary artery embolus. 2. Masslike wall thickening of the ascending colon and a region measuring up to approximately 4.5 cm suspicious for malignancy. Recommend direct visualization and surgical consultation. 3. Moderate to severe stenosis of the right common and right external iliac artery secondary to densely calcified atheroma. 4. Bilateral apical scarring, left greater than right with band like opacity in the left upper lobe similar to the prior examination. 5. Low-attenuation right posterior hepatic lobe lesion is indeterminate, not distinctly assist particularly given the bowel pathology described. Metastatic disease cannot be excluded. 6. Near occlusion of the left common iliac artery secondary to densely calcified atheroma. 7. Multiple nonspecific enlarged mediastinal lymph nodes particularly subcarinal lymph nodes. 8. Colonic diverticulosis without evidence of acute diverticulitis. Electronically Signed: Jonathan Marx DO at 22:07 EDT , ADDENDUM: 04/11/241 IMPRESSION: 1. No evidence of pulmonary artery embolus. 2. Masslike wall thickening of the ascending colon and a region measuring up to approximately 4.5 cm suspicious for malignancy. Recommend direct visualization and surgical consultation. 3. Moderate to severe stenosis of the right common and right external iliac artery secondary to densely calcified atheroma. 4. Bilateral apical scarring, left greater than right with band like opacity in the left upper lobe similar to the prior examination. 5. Low-attenuation right posterior hepatic lobe lesion is indeterminate, not distinctly assist particularly given the bowel pathology described. Metastatic disease cannot be excluded. 6. Near occlusion of the left common iliac artery secondary to densely calcified atheroma. 7. Multiple nonspecific enlarged mediastinal lymph nodes particularly subcarinal lymph nodes. 8. Colonic diverticulosis without evidence of acute diverticulitis. N.B. : Len Washington DO, confirmed on 04/11/2024 22:14:29 (ET) that the healthcare facility has received the radiology report. Electronically Signed: Jonathan Marx DO at 22:07 EDT , Charges/Coding Visit Charges Inpatient E&M: 25042 Init Hosp L2
--- NOTE | 2024-04-12 15:14 | CASEMGMT ---
JENNIFER BOLTON Assessment Face to Face with patient for initial transition planning/care coordination assessment. JENNIFER BOLTON introduced self and role at [facility], pt voices understanding. Pt is A&Ox4 and is resting comfortably in bed and is calm. Care providers, pharmacy, and demographics verified. Admitting dx: ONDINA GUILLERMO Strata: 2 PCP: Tami Omalley Specialists: Denies Preferred Pharmacy: [facility] Insurance: [facility] A Only Prescription Benefit: None. Pt states that he does not normally take any expensive medications. Pt was educated about free services such as [facility] LNOK: Radha Raymond (W) Living Arrangements: Pt lives with his in a mobile home with one step to enter ADLs/IADLs: Ind Transportation: Pt states that he and his have eye issues but are both still able to drive. However, pt states that his LOUISE or other family will be able to drive the pt home. DME: BP Monitor. Denies all other DME uses or needs HHC/SNF: Denies Hx or needs Pt?s goal: Home Plan: Home no needs. 6-click is 24. No PT ordered. Pt denies the need for HHC, OP Tx, or SNF. Pt states that he feels safe discharging home with his once he is medically ready and denies further needs. Marco Orellana RN, CM
[2024-04-12] MEDS: hydrALAZINE 20 MG/ML Vial 10 MG IV (15:27)
--- NOTE | 2024-04-12 19:15 | EX.PCM.CON.G ---
HPI Consult Data Date of Consult: 04/12/24 Attending Care Provider: GI bleed HPI Narrative Reason for Consultation: GI bleed HPI Narrative: JARED PEREZ, is a 79 M who presented with lower GI bleed. He has a past medical history of essential hypertension, overweight; with BMI of 27.6 this admission, history of tobacco abuse, CAD; s/p CABG x 5, history of TIA/CVA, PVD; with claudication of both LE's, neuropathy, medical noncompliance, chronic constipation, history of appendectomy, remote history of colonoscopy ~10 years ago. He presented to [facility] ER complaining of BRBPR followed by chest pain with activity. He reports his acute symptoms began approximately 3 days prior to admission with the gradual-onset of progressively worsening CARRILLO accompanied by a burning sensation in his chest and an aching pain in his legs that all improve with rest. He then went to see his PCP earlier on 04/11/2024 and was noted to have significant anemia with a hemoglobin of 7.2 g/dL with a slightly elevated troponin and d-dimer of 2 so he was sent in to the ER for further evaluation and treatment. He does admit to recently using Epsom salts as a laxative to strip his colon ~2 days ago with an unfortunate side effect of passing a large volume of BRBPR. He then had a normal BM with no obvious bleeding. He denies associated fever, chills, nausea, vomiting, abdominal pain, rectal pain or black stools but he does admit to not taking his blood pressure medications until his systolic blood pressure is > 180 mmHg at which point he takes an oral Amlodipine prn. In the ER he was noted to have laboratory evidence of ABLA with BRBPR requiring transfusion with hemoglobin of 6.7 g/dL present on admission complicated by abdominal CT this admission positive for Masslike wall thickening of the Ascending Colon up to ~4.5 cm suspicious for malignancy compounded by an Elevated troponin of 123 pg/mL present on admission likely due to Acute Cardiac Strain in the setting of previously known CAD; s/p CABG with a history of Tobacco Abuse with Chronic LE Claudication [facility] Medical History (Updated 04/12/24 @ 01:[address] Darrel Carpenter, ) History of stroke Acute alteration in mental status Neuropathy Vasectomy planned Tonsillectomy planned Hyponatremia TIA (transient ischemic attack) CVA (cerebral vascular accident) Hypertension Home Medications ?Medication ?Instructions ?Recorded ?Last Taken ?Type amlodipine 5 mg tablet 10 mg PO DAILY PRN bp 04/11/24 Unknown History Allergy/AdvReac Type Severity Reaction Status Date / Time No Known Allergies Allergy Verified 04/11/24 20:22 Surgical History History of appendectomy Hx of CABG Social History Smoking Status: Former smoker ROS ROS Narrative Review of systems: General: Patient fever or chills. HENT: Denies headache, denies stuffy nose, denies sore throat EYES: Denies changes in vision or discharge from eyes. Resp: Patient admits to dyspnea on exertion with burning in chest but he denies cough. Cardiac: Patient admits to chest pain with exertion but denies palpitations or heart racing. GI: Patient admits to bright red blood per rectum after Epsom salt laxative taken orally. He denies abdominal pain, nausea, vomiting or diarrhea. : Denies changes in urination Extremity: Denies swelling Musculoskeletal: Patient admits to pain in legs made worse with exertion but he denies arthralgias. Neuro: Patient denies headache or focal neurologic deficits but he does admit to neuropathic type pain in both lower extremities that worsens with exertion and improves with rest. Heme: Patient admits to large BRBPR approximately 2 days ago. Skin: Denies rashes Psychiatric: No complaints voiced related to uncontrolled depression or anxiety. Endocrine: No polyuria, polydipsia or polyphagia. The rest of the 14 point ROS was negative except for positives in HPI. Physical Exam Const alert, oriented x3, no apparent distress, average body habitus and healthy appearing General Appearance: cooperative HEENT normocephalic, head/scalp atraumatic, hearing grossly normal bilaterally and moist oral mucous membranes Eyes PERRL and EOMs intact bilaterally Neck no lymphadenopathy and supple Resp normal respiratory effort, no retractions, no use of accessory muscles and clear to auscultation bilaterally Cardio regular rate and regular rhythm GI normal to inspection, nondistended, normoactive bowel sounds, soft to palpation, non-tender and non-distended Extremity normal to inspection, full ROM and no clubbing, cyanosis or edema Skin Skin Narrative: Patient has no evidence of rash, abscess or jaundice. Neuro oriented x3, CN's II-XII intact bilaterally, moves all extremities and no focal motor deficits Sensorium / Orientation: awake, alert, oriented to person, oriented to place and oriented to time Speech: speech normal Psych affect normal Lab / Micro Data 04/12/24 05:18 04/12/24 05:18 Labs: Laboratory Results - last 24 hr 04/11/24 20:43: Crossmatch See Detail 04/11/24 20:46: WBC 6.0, RBC 2.51 L, Hgb 6.7 L, Hct 21.3 L, MCV 84.9, MCH 26.7 L, MCHC 31.5 L, RDW Std Deviation 40.7, RDW Coeff of Deepika 13.2, Plt Count 304, MPV 9.5, Immature Gran % (Auto) 0.500, Neut % (Auto) 65.6, Lymph % (Auto) 19.0, [place] % (Auto) 13.1 H, Eos % (Auto) 1.3, Baso % (Auto) 0.5, Absolute Neuts (auto) 4.0, Absolute Lymphs (auto) 1.15, Nucleated RBC % 0, PT 13.8, INR 1.1, APTT 27.9, Sodium 141, Potassium 3.7, Chloride 105, Carbon Dioxide 26.0, Anion Gap 10, BUN 18, Creatinine 1.30, Estim Creat Clear Calc 45.94, Est GFR (MDRD) Af Amer 68, Est GFR (MDRD) Non-Af 56 L, BUN/Creatinine Ratio 13.8, Glucose 123 H, Calcium 8.7, Total Bilirubin 0.30, Direct Bilirubin 0.09, AST 15, ALT 18, Alkaline Phosphatase 87, Troponin I High Sens 124 H*, Total Protein 6.6, Albumin 3.4, Globulin 3.2, Lipase 29, Blood Type O POSITIVE, Antibody Screen NEGATIVE 04/11/24 23:40: Iron 16 L, TIBC 387, Iron Saturation 4.1 L, Ferritin 17 L 04/12/24 05:18: WBC 5.7, RBC 3.82 L, Hgb 10.5 L, Hct 32.7 L, MCV 85.6, MCH 27.5, MCHC 32.1, RDW Std Deviation 41.6, RDW Coeff of Deepika 13.3, Plt Count 314, MPV 9.2, Immature Gran % (Auto) 0.500, Neut % (Auto) 61.5, Lymph % (Auto) 25.3, [place] % (Auto) 10.5 H, Eos % (Auto) 1.8, Baso % (Auto) 0.4, Absolute Neuts (auto) 3.5, Absolute Lymphs (auto) 1.44, Nucleated RBC % 0, PT 13.1, INR 1.0, APTT 27.7, Sodium 137, Potassium 3.5, Chloride 104, Carbon Dioxide 29.0, Anion Gap 4 L, BUN 16, Creatinine 1.17, Estim Creat Clear Calc 48.72, Est GFR (MDRD) Af Amer 77, Est GFR (MDRD) Non-Af 64, BUN/Creatinine Ratio 13.7, Glucose 98, Calcium 8.9, Phosphorus 3.5, Magnesium 2.1, Total Bilirubin 0.90, AST 20, ALT 22, Alkaline Phosphatase 88, Total Protein 7.3, Albumin 3.8, Globulin 3.5, Albumin/Globulin Ratio 1.1, TSH 3.360 Imaging Radiology Impression Chest/Abdomen/Pelvis CTA 04/11/24 21:30 IMPRESSION: 1. No evidence of pulmonary artery embolus. 2. Masslike wall thickening of the ascending colon and a region measuring up to approximately 4.5 cm suspicious for malignancy. Recommend direct visualization and surgical consultation. 3. Moderate to severe stenosis of the right common and right external iliac artery secondary to densely calcified atheroma. 4. Bilateral apical scarring, left greater than right with band like opacity in the left upper lobe similar to the prior examination. 5. Low-attenuation right posterior hepatic lobe lesion is indeterminate, not distinctly assist particularly given the bowel pathology described. Metastatic disease cannot be excluded. 6. Near occlusion of the left common iliac artery secondary to densely calcified atheroma. 7. Multiple nonspecific enlarged mediastinal lymph nodes particularly subcarinal lymph nodes. 8. Colonic diverticulosis without evidence of acute diverticulitis. Electronically Signed: Jonathan Marx DO at 22:07 EDT , ADDENDUM: 04/11/242220 IMPRESSION: 1. No evidence of pulmonary artery embolus. 2. Masslike wall thickening of the ascending colon and a region measuring up to approximately 4.5 cm suspicious for malignancy. Recommend direct visualization and surgical consultation. 3. Moderate to severe stenosis of the right common and right external iliac artery secondary to densely calcified atheroma. 4. Bilateral apical scarring, left greater than right with band like opacity in the left upper lobe similar to the prior examination. 5. Low-attenuation right posterior hepatic lobe lesion is indeterminate, not distinctly assist particularly given the bowel pathology described. Metastatic disease cannot be excluded. 6. Near occlusion of the left common iliac artery secondary to densely calcified atheroma. 7. Multiple nonspecific enlarged mediastinal lymph nodes particularly subcarinal lymph nodes. 8. Colonic diverticulosis without evidence of acute diverticulitis. N.B. : Len Washington DO, confirmed on 04/11/2024 22:14:29 (ET) that the healthcare facility has received the radiology report. Electronically Signed: Jonathan Marx DO at 22:07 EDT , Assessment & Plan Assessment/Plan (1) ABLA (acute blood loss anemia): (2) Colonic mass: (3) Elevated troponin: (4) Coronary artery disease: QUALIFIERS: Coronary Disease-Associated Artery/Lesion type: [place] artery [place] vs. transplanted heart: [place] heart Associated angina: with stable angina Qualified Code(s): I25.118 - Atherosclerotic heart disease of [place] coronary artery with other forms of angina pectoris (5) 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: QUALIFIERS: Peripheral atherosclerosis artery type: [place] artery Qualified Code(s): I70.213 - Atherosclerosis of [place] arteries of extremities with intermittent claudication, bilateral legs (6) Chronic hypertension: (7) History of stroke: (8) Overweight (BMI 25.0-29.9): PLAN: Plan 79-year-old gentleman who comes in with lower GI bleeding and discovered to have a significant anemia ABLA with BRBPR requiring transfusion with hemoglobin of 6.7 g/dL present on admission. Agree with to proceed with transfusion of blood ordered in the ER and recheck CBC after last unit to ensure improvement. CT this admission positive for Masslike wall thickening of the Ascending Colon up to ~4.5 cm suspicious for malignancy with a possible metastatic lesion noted in liver likely causing acute GI bleed in the setting of known colonic polyposis on colonoscopy ~10 years ago . He should undergo an upper and lower endoscopy to evaluate his upper and lower GI tract. He was explained alternatives, risk, benefits include not withstanding bleeding, infection, sepsis, perforation, need for emergent urgent . Have an ASA of 3. Charges/Coding Visit Charges Inpatient E&M: 77215 Init Hosp L3
[2024-04-12] MEDS: Bisacodyl 5 MG Tablet 20 MG PO (19:56)
[2024-04-12] MEDS: Polyethylene Glycol 3350 BOWEL PREP PO (20:28)
[2024-04-13] VITALS (16 sets, daily range): BP systolic 142–186; BP diastolic 56–82; PULSE 70–82; RESP 16–18; TEMP 35.9–36.8; O2SAT 96–100; BMI 26.2; BMI 26.5
--- NOTE | 2024-04-13 | IMM_PTH ---
PATIENT: JARED PEREZ LOC: [facility] U#:[id number] AGE/SX: 79/M ROOM: [facility] RE04/12/[address]: Dr. Stevie Harrington DO : 1945 BED: 1 DIS: 04/15/2024 SPEC #: [id number] RECD: 04/17/24 10:34 STATUS: SCOTT REQ #: [id number] MATTHEW: 04/13/24 00:[address]: Ari Silvestre DEPT: IMMUNOHISTOCHEMISTRY RECD BY: Nick Shaikh ENTERED: 04/17/24 10:35 SP TYPE: IMMUNO OTHR DR: DO Dr. Stevie Freedman DO Dr. Steven A Wanek, MD Rachel Edgar, POLITICAL SCIENCE CHAIR-C Tissues: Colon, NOS Procedures: MSH2 (add) MLH-1 (add) MSH6 (add) Anti-PMS2 (add) CD56 (add) CHROMO (add) CK20 (add) CK7 (add) CK8 (add) CATES-2 (add) KI-67 (add) P53 (add) 34BE12 (add) Pankeratin (add) CDX2 (add) HER-2-DIONNA (initial) PHYSICIAN & [place] [id number] SPECIMEN INFORMATION: Tissue Source: Hepatic flexure mass Clinical Info: Anemia, colonic mass Specimen Number: [id number] CPT code: 62861,72223r45 METHODOLOGY: Deparaffinized sections of prefer/formalin-fixed tissue or PAP/DQ stained slides are incubated with monoclonal/polyclonal antibodies/oligonucleotide probes. Localization is made via biotin free immunoperoxidase method. Appropriate controls are performed and reacted as expected. Results on target cell population are indicated in the following table: RESULTS: ANTIBODY / CLONE RESULT AE1-3 (AE1/AE3/PCK26) positive CK7 (OV-TL12/30) negative CK8 (96bwyfZ91) positive CK20 (KS20.8) positive CDX2 (ARM4300U) positive 34BE12 (34BE12) positive, rare CD56 (123C3.D5) negative Chromo (LK2H10) negative Her-2neu (CB11) negative MOC-31 (4561) positive MLH-1 (M1) positive MSH2 (25D12) positive MSH6 (44) positive PMS2 (NGK1708) positive Ki-67 (30-9) positive, high P53 (DO-7) positive, missense type These tests were developed and their performance characteristics determined by [facility]. They may not have been cleared or approved by the U.S. Food and Drug Administration. The FDA has determined that such clearance or approval is not necessary. The above immunohistochemical/dualISH markers are ordered and reviewed by the Pathologist. INTERPRETATION: Hepatic flexure mass, biopsy: Poorly differentiated adenocarcinoma. Result of Microsatellite Instability Study: Negative (no loss of mismatch protein; no microsatellite instability detected). AM.mr 04/18/2024
[2024-04-13 07:22] LABS: Absolute Neutrophil Count 3.5 X10^3/uL (2.0-7.7); Basophil# 0.01 X10^3/uL; Basophil% 0.2 % (0-1); Eosinophil# 0.16 X10^3/uL; Eosinophils% 2.8 % (0-5); Hematocrit 34.1 % (40-54); Hemoglobin 10.8 g/dL (13.0-16.5); Lymphocyte % 22.6 % (19-41); Mean Corp Hgb Conc 31.7 g/dL (32-36); Mean Corpuscular Hgb 26.7 pg (27.0-32.0); Mean Corpuscular Volume 84.4 fL (80-94); Mean Platelet Vol. 9.4 fl (6.2-12.0); Monocyte# 0.72 X10^3/uL; Monocyte% 12.5 % (0-10); NRBC Flagged by Analyzer 0 % (0-5); Neutrophil # 3.54 X10^3/uL (2.7-7.7); Neutrophil % 61.6 % (47-70); Platelet Count 343 K/mm3 (150-450); RBC Distribution Width CV 13.4 % (11.6-14.6); RBC Distribution Width SD 41.8 fl (35.1-43.9); Red Blood Count 4.04 M/mm3 (4.6-6.2); White Blood Count 5.8 K/mm3 (4.4-11.0)
[2024-04-13 07:50] LABS: Anion Gap 8 (5-15); BUN 15 mg/dL (7-18); BUN/Creat Ratio 12.6 RATIO (10-20); Calcium,Total 8.9 mg/dL (8.5-10.1); Chloride 106 mmol/L (98-107); Creatinine, Serum 1.19 mg/dL (0.70-1.30); EST Glomerular Filtration Rate 63 mL/min (>60); Est Glom Filt Rate - Afr Amer 76 mL/min (>60); Estimated Creatinine Clearance 46.29 ml/min; Glucose 99 mg/dL (74-106); Potassium 3.6 mmol/L (3.5-5.1); Sodium Level 138 mmol/L (136-145)
[2024-04-13 08:38] LABS: International Normalized Ratio 1.1; Partial Thromboplast Time 29.4 Seconds (24.1-36.2); Prothrombin Time (Protime)PT. 14.6 SECONDS (11.7-14.9)
[2024-04-13] MEDS: Pantoprazole Sodium 40 MG in 0.9% Normal Saline (100mL MB+) 100 ML 330 MG IV (09:53)
[2024-04-13] MEDS: 0.9% Normal Saline (1000mL) 1,000 ML 30 ML IV ×2 (09:54→23:30)
--- NOTE | 2024-04-13 10:02 | PN.HOSP_ITS ---
Reason for Visit Reason for Visit: Diagnoses Acute posthemorrhagic anemia (04/12/24) Overweight (04/12/24) Essential (primary) hypertension (04/12/24) Atherosclerotic heart disease of [place] coronary artery with other forms of angina pectoris (04/12/24) Atherosclerosis of [place] arteries of extremities with intermittent claudication, bilateral legs (04/12/24) Other specified diseases of intestine (04/12/24) Other specified abnormal findings of blood chemistry (04/12/24) Personal history of transient ischemic attack (TIA), and cerebral infarction without residual deficits (04/12/24) Objective Data Objective Data Vital Signs: Vital Signs Temp Pulse Resp BP Pulse Ox O2 Del Method 36.4 C L 70 16 185/70 H 99 Room Air 04/13/24 09:51 04/13/24 09:51 04/13/24 09:51 04/13/24 09:51 04/13/24 09:51 04/13/24 09:51 Oxygen Delivery Method Room Air Weight: 76.8 kg Body Mass Index (BMI) 26.5 Intake & Output: Intake and Output for Last 24 Hours 04/11/24 04/12/24 04/13/24 23:59 23:59 23:59 Intake Total 0 / 0 351 / 351 903 / 903 Balance 0 / 0 351 / 351 903 / 903 Lab / Micro Data 04/13/24 06:56 04/13/24 06:56 Labs: Laboratory Results - last 24 hr 04/11/24 20:43: Crossmatch See Detail 04/13/24 06:56: WBC 5.8, RBC 4.04 L, Hgb 10.8 L, Hct 34.1 L, MCV 84.4, MCH 26.7 L, MCHC 31.7 L, RDW Std Deviation 41.8, RDW Coeff of Deepika 13.4, Plt Count 343, MPV 9.4, Immature Gran % (Auto) 0.300, Neut % (Auto) 61.6, Lymph % (Auto) 22.6, [place] % (Auto) 12.5 H, Eos % (Auto) 2.8, Baso % (Auto) 0.2, Absolute Neuts (auto) 3.5, Absolute Lymphs (auto) 1.30, Nucleated RBC % 0, PT 14.6, INR 1.1, APTT 29.4, Sodium 138, Potassium 3.6, Chloride 106, Carbon Dioxide 24.0, Anion Gap 8, BUN 15, Creatinine 1.19, Estim Creat Clear Calc 46.29, Est GFR (MDRD) Af Amer 76, Est GFR (MDRD) Non-Af 63, BUN/Creatinine Ratio 12.6, Glucose 99, Calcium 8.9 Assessment & Plan Assessment/Plan (1) ABLA (acute blood loss anemia): (2) Colonic mass: (3) Elevated troponin: (4) Coronary artery disease: QUALIFIERS: Coronary Disease-Associated Artery/Lesion type: [place] artery [place] vs. transplanted heart: [place] heart Associated angina: with stable angina Qualified Code(s): I25.118 - Atherosclerotic heart disease of [place] coronary artery with other forms of angina pectoris (5) 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: QUALIFIERS: Peripheral atherosclerosis artery type: [place] artery Qualified Code(s): I70.213 - Atherosclerosis of [place] arteries of extremities with intermittent claudication, bilateral legs (6) Chronic hypertension: (7) History of stroke: (8) Overweight (BMI 25.0-29.9): PLAN: Plan ABLA * Hemoglobin dropped down to 6.7. Status post 2 units of packed red blood cells and hemoglobin up to 10.5. * Due to GI bleed. GI bleed * CT showed a 4.5 cm mass suspicious for malignancy in the ascending colon. * Continue to monitor * GI to take for endoscopy. Colon mass * 4.5 cm ascending colon mass * GI and general surgery on consultation. Elevated troponins * 123 * May be due to demand ischemia from the anemia * Check echocardiogram Chronic conditions * Chronic PVD: Stable * Hypertension: Continue with amlodipine * History of TIA/CVA: VTE prophylaxis with SCDs
--- NOTE | 2024-04-13 10:02 | PCM.PN.HOSP ---
Reason for Visit Reason for Visit: Diagnoses Acute posthemorrhagic anemia (04/12/24) Overweight (04/12/24) Essential (primary) hypertension (04/12/24) Atherosclerotic heart disease of [place] coronary artery with other forms of angina pectoris (04/12/24) Atherosclerosis of [place] arteries of extremities with intermittent claudication, bilateral legs (04/12/24) Other specified diseases of intestine (04/12/24) Other specified abnormal findings of blood chemistry (04/12/24) Personal history of transient ischemic attack (TIA), and cerebral infarction without residual deficits (04/12/24) Subjective Subjective Feeling well. Of commenting about how his legs are less swollen than they had been in the past. Objective Data Objective Data Vital Signs: Vital Signs Temp Pulse Resp BP Pulse Ox O2 Del Method 36.4 C L 70 16 185/70 H 99 Room Air 04/13/24 09:51 04/13/24 09:51 04/13/24 09:51 04/13/24 09:51 04/13/24 09:51 04/13/24 09:51 Oxygen Delivery Method Room Air Weight: 76.8 kg Body Mass Index (BMI) 26.5 Intake & Output: Intake and Output for Last 24 Hours 04/11/24 04/12/24 04/13/24 23:59 23:59 23:59 Intake Total 0 / 0 351 / 351 903 / 903 Balance 0 / 0 351 / 351 903 / 903 Lab / Micro Data 04/13/24 06:56 04/13/24 06:56 Labs: Laboratory Results - last 24 hr 04/11/24 20:43: Crossmatch See Detail 04/13/24 06:56: WBC 5.8, RBC 4.04 L, Hgb 10.8 L, Hct 34.1 L, MCV 84.4, MCH 26.7 L, MCHC 31.7 L, RDW Std Deviation 41.8, RDW Coeff of Deepika 13.4, Plt Count 343, MPV 9.4, Immature Gran % (Auto) 0.300, Neut % (Auto) 61.6, Lymph % (Auto) 22.6, [place] % (Auto) 12.5 H, Eos % (Auto) 2.8, Baso % (Auto) 0.2, Absolute Neuts (auto) 3.5, Absolute Lymphs (auto) 1.30, Nucleated RBC % 0, PT 14.6, INR 1.1, APTT 29.4, Sodium 138, Potassium 3.6, Chloride 106, Carbon Dioxide 24.0, Anion Gap 8, BUN 15, Creatinine 1.19, Estim Creat Clear Calc 46.29, Est GFR (MDRD) Af Amer 76, Est GFR (MDRD) Non-Af 63, BUN/Creatinine Ratio 12.6, Glucose 99, Calcium 8.9 Physical Exam Const alert and no apparent distress HEENT head/scalp atraumatic and moist oral mucous membranes Resp normal respiratory effort, no retractions, no use of accessory muscles and clear to auscultation bilaterally Cardio regular rate, regular rhythm, S1 normal heart sound, S2 normal heart sound and no murmurs GI normal to inspection, nondistended, normoactive bowel sounds, soft to palpation, non-tender and non-distended Neuro Sensorium / Orientation: awake and alert Assessment & Plan Assessment/Plan (1) ABLA (acute blood loss anemia): (2) Colonic mass: (3) Elevated troponin: (4) Coronary artery disease: QUALIFIERS: Associated angina: with stable angina Coronary Disease-Associated Artery/Lesion type: [place] artery [place] vs. transplanted heart: [place] heart Qualified Code(s): I25.118 - Atherosclerotic heart disease of [place] coronary artery with other forms of angina pectoris (5) 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: QUALIFIERS: Peripheral atherosclerosis artery type: [place] artery Qualified Code(s): I70.213 - Atherosclerosis of [place] arteries of extremities with intermittent claudication, bilateral legs (6) Chronic hypertension: (7) History of stroke: (8) Overweight (BMI 25.0-29.9): PLAN: Plan ABLA Hemoglobin dropped down to 6.7. Status post 2 units of packed red blood cells and hemoglobin up to 10.5. Due to GI bleed. GI bleed CT showed a 4.5 cm mass suspicious for malignancy in the ascending colon. Continue to monitor GI to take for endoscopy. Colon mass 4.5 cm ascending colon mass GI and general surgery on consultation. Elevated troponins 123 May be due to demand ischemia from the anemia Check echocardiogram Chronic conditions Chronic PVD: Stable Hypertension: Continue with amlodipine History of TIA/CVA: VTE prophylaxis with SCDs Charges/Coding Visit Charges Inpatient E&M: 86499 Subs Hosp L2
[2024-04-13] MEDS: hydrALAZINE 20 MG/ML Vial 10 MG IV ×2 (10:44→23:38)
[2024-04-13 11:10] LABS: Carcinoembryonic Antigen 2.7 ng/mL (0.0-4.7)
--- NOTE | 2024-04-13 15:52 | PRE.ANES_ITS ---
ASA Classification* ASA Classification ASA Classification: 3 Assessment & Plan Anesthesia* Anesthesia Assessment Anesthesia Assessment: Discussed sedation and/or anesthesia options, risks, benefits, and alternatives with patient/parents/legal guardian/POA. Questions invited. The patient/parents/legal guardian/POA seems to understand and agrees to proceed with anesthesia plan. Reviewed the physical assessment, medical history, allergy history and patient home medications list prior to surgery/procedure/anesthetic and documented any changes. Performed airway and anesthesia risk assessments. Anesthesia Type Anesthesia Type: MAC Anesthesia Focused Assessment* Temperature: 97.3 F Pulse Rate: 79 Blood Pressure: 149/82 Respiratory Rate: 16 Pulse Ox: 100 Airway Assessment Mouth opens: >3 cm Mallampati Score: II Focused Labs Anesthesia Preop lab: CBC WBC 5.8 K/mm3 (4.4-11.0) 04/13/24 06:56 RBC 4.04 M/mm3 (4.6-6.2) L 04/13/24 06:56 Hgb 10.8 g/dL (13.0-16.5) L 04/13/24 06:56 Hct 34.1 % (40-54) L 04/13/24 06:56 Plt Count 343 K/mm3 (150-450) 04/13/24 06:56 CHEMISTRY Potassium 3.6 mmol/L (3.5-5.1) 04/13/24 06:56 Sodium 138 mmol/L (136-145) 04/13/24 06:56 Magnesium 2.1 mg/dL (1.6-2.6) 04/12/24 05:18 Phosphorus 3.5 mg/dL (2.5-4.9) 04/12/24 05:18 BUN 15 mg/dL (7-18) 04/13/24 06:56 Creatinine 1.19 mg/dL (0.70-1.30) 04/13/24 06:56 Glucose 99 mg/dL (74-106) 04/13/24 06:56 POC Glucose 115 mg/dL (70-110) H 10/31/14 06:04 TSH 3.360 uIU/mL (0.358-3.740) 04/12/24 05:18 COAG PT 14.6 SECONDS (11.7-14.9) 04/13/24 06:56 Pre-Assessment Diagnosis/Proposed Procedure Planned Operative Procedure(s): EGD Anesthesia History Anesthesia History - client technologies analyst: Anesthesia History - client technologies analyst Hx Hospitalization Any Problems With Anesthesia No 04/13/24 03:40 Cholinesterase deficiency No 04/13/24 03:40 You/Your Family Experience No 04/13/24 03:40 fever (hyperthermia) with Relationship Recent Exposure to Contagious No 04/13/24 03:40 Disease Does patient have nerve No 04/13/24 03:40 stimulator Patient instructed to have No 04/12/24 05:15 device shut off --Does patient have Pacemaker No 04/13/24 03:37 or ICD? When Was Last Pacemaker Check QUESTION #4 FULL TEXT: You/Your Family Experience fever (hyperthermia) with Anesthesia Last Oral Intake Last Oral intake: Last Oral Intake NPO since 00:00 04/13/24 03:37 Meds taken in AM with sips of No 04/13/24 03:37 water? Meds patient instructed to take am of surgery PONV PONV - client technologies analyst: PONV - client technologies analyst Female HX of Motion Sickness HX of N/V After Surgery Non-Smoker Duration of Surgery greater than 60 minutes Number of Risk Factors PONV Score Height & Weight Height & Weight: Anesthesia: Height & Weight Height 5 ft 7 in 04/13/24 03:37 Weight: 76.8 kg 04/13/24 04:12 Body Mass Index (BMI) 26.5 04/13/24 04:12 Respiratory Assessment Respiratory Assessment - client technologies analyst: Respiratory Tract Infection Hx - client technologies analyst Hx Respiratory Tract Infection No 04/13/24 03:40 STOP Sleep Apnea STOP Sleep Apnea - client technologies analyst: STOP Sleep Apnea - client technologies analyst Hx Hypertension Yes 04/12/24 02:59 Hx Sleep Apnea No 04/12/24 02:59 CPAP No 08/15/23 22:26 BIPAP No 08/15/23 22:26 Do you snore loudly (louder No 04/12/24 02:59 than talking or can be heard Do you often feel tired/ No 04/12/24 02:59 fatigued/ sleepy during daytime? Has anyone observed you stop No 04/12/24 02:59 breathing during sleep? STOP Results Negative 04/12/24 02:59 QUESTION #5 FULL TEXT : Do you snore loudly (louder than talking or can be heard through closed doors)? Tobacco Use History Tobacco Use History - client technologies analyst: Tobacco Use History - client technologies analyst Tobacco Use Cigarettes 01/25/23 14:01 Smoking Status Former smoker 04/12/24 02:59 Hx Tobacco Use No 04/12/24 02:59 Years Smoking Packs Smoked per Day Smoking Cessation Date was Yes - quit smoking within 15 04/12/24 02:59 within the last 15 years years Hx Smoking Cessation Date 04/01/23 04/12/24 02:59 Hx Smoking Cessation Yes 04/12/24 02:59 Counseling Hematologic Medial History Hematologic Hx - client technologies analyst: Hematologic Medical Hx - database admin Hx of Blood Transfusion Yes 04/12/24 02:59 Hx of Transfusion in last 3 No 04/12/24 02:59 Months Date of Last Transfusion (if within last 3 months) Ever experience any problems No 04/12/24 02:59 with transfusion(s)? Specify any problems Hx of Preganancy in last 3 N/A 04/12/24 02:59 Months Nurse Filling Out Transfusion [id number] 04/12/24 02:59 & Questions: Date: 04/12/24 04/12/24 02:59 Time: 03:01 04/12/24 02:59 Patient unable to answer at this time (ie. confused, unrespo /Reproduction History /Reproductive History - client technologies analyst: /Reproductive Hx- client technologies analyst Hx Now No 04/13/24 03:40 Gestational Age (in weeks): EDC: Hx Hx Para Hx Section SAB No 04/13/24 03:40 Active Medications Active Medications: Current Medications Generic Name Dose Route Start Last Admin Trade Name Freq PRN Reason Stop Dose Admin Hydralazine HCl 10 mg 04/12/24 02:02 04/13/24 10:44 Hydralazine 20 Mg/Ml Vial IV 10 mg Q6H PRN PRN Administration SBP GREATER THAN 160 Protocol Sodium Chloride 1,000 mls @ 30 mls/hr 04/12/24 02:59 04/13/24 09:54 IV 30 mls/hr .[id number] EVITA Administration Pantoprazole Sodium 40 mg/ 110 mls @ 330 mls/hr 04/12/24 10:00 04/13/24 10:32 Sodium Chloride IV Infused Q24 EVITA Infusion Sodium Chloride 250 mls @ 15 mls/hr 04/12/24 03:03 IV .[id number] PRN Additional IVPB Infusion Sodium Chloride 250 mls @ 15 mls/hr 04/12/24 03:03 IV .[id number] PRN Saline Flush Morphine Sulfate 2 mg 04/12/24 02:59 Morphine 2 Mg/Ml Syringe IV Q4H PRN PRN Pain Score 6-10 Ondansetron HCl 4 mg 04/12/24 02:59 Ondansetron 4 Mg/2 Ml Vial IV Q8H PRN PRN NAUSEA/VOMITING Sodium Chloride 10 - 40 ml 04/12/24 03:03 0.9% Saline Lock 10 Ml Syringe IV UD PRN SALINE FLUSH PFSH Medical History History of stroke Acute alteration in mental status Neuropathy Vasectomy planned Tonsillectomy planned Hyponatremia TIA (transient ischemic attack) CVA (cerebral vascular accident) Hypertension Home Medications ?Medication ?Instructions ?Recorded ?Last Taken ?Type amlodipine 5 mg tablet 10 mg PO DAILY PRN bp 04/11/24 Unknown History Allergy/AdvReac Type Severity Reaction Status Date / Time No Known Allergies Allergy Verified 04/11/24 20:22 Surgical History History of appendectomy Hx of CABG Social History Smoking Status: Former smoker Review of Systems (Anesthesia) ROS Narrative System reviewed and no additional complaints, except as documented.
--- NOTE | 2024-04-13 16:15 | COLBX_PTH ---
PATIENT: JARED PEREZ LOC: [facility] U#:[id number] AGE/SX: 79/M ROOM: [facility] RE04/12/[address]: Dr. Stevie Harrington DO : 1945 BED: 1 DIS: 04/15/2024 SPEC #: [id number] RECD: 04/16/24 07:13 STATUS: SCOTT [place]STON #: [id number] MATTHEW: 04/13/24 16:[address]: Ari Silvestre DEPT: SURGICAL PATHOLOGY RECD BY: Shawanda Abrams ENTERED: 04/16/24 09:48 SP TYPE: COLON BX OTHR DR: DO Dr. Stevie Freedman DO Dr. Steven A Wanek, MD Rachel Edgar, PARTS REMOVER-C Tissues: COLON BIOPSY Procedures: Special Stain Group I Mucicarmine Stain (control) Surgery Specimen Level IV HEADER OPERATION: Colonoscopy with biopsy, tattoo PRE-OP DIAGNOSIS: Anemia, colonic mass TISSUE SUBMITTED: Hepatic flexure mass MICROSCOPIC DIAGNOSIS Colonic polyp at hepatic flexure, biopsy: Invasive poorly differentiated adenocarcinoma. See comment. KALLIE 04/17/2024 COMMENT Immunohistochemistry ([id number]) supports the above diagnosis. Mucin stain with matched control was used in the evaluation of this case. Case has been reviewed in consultation with Dr. Joy who concurs with the above diagnosis. IDC:[place] MICROSCOPIC DESCRIPTION Slides are reviewed. GROSS DESCRIPTION Received in fixative is one container labeled with the patient's name and designated Hepatic flexure mass. The specimen consists of multiple irregular fragments of light baarca soft tissue that in aggregate measure 1.0 x 0.5 x 0.1 cm. The specimen is totally submitted in one cassette. 04/16/2024 TC:0 CPT:07775
--- NOTE | 2024-04-13 16:37 | OP.COLON_ITS ---
Patient Name: Shaan Raymond Procedure Date: 04/13/2024 4:10 PM Date of : 1945 Age: 79 Procedure: Colonoscopy Indications: Abnormal CT of the GI tract Providers: Ari Silvestre DO Medicines: Monitored Anesthesia Care Patient Profile: This is an 79 year old male. Refer to note in patient chart for documentation of history and physical. Last Colonoscopy: date unknown. Unable to locate last colonoscopy report. Complications: No immediate complications. Procedure: Pre-Anesthesia Assessment: - Prior to the procedure, a History and Physical was performed, and patient medications and allergies were reviewed. The patient is competent. The risks and benefits of the procedure and the sedation options and risks were discussed with the patient. All questions were answered and informed consent was obtained. Patient identification and proposed procedure were verified by the physician in the pre-procedure area. Mental Status Examination: alert and oriented. Airway Examination: normal oropharyngeal airway and neck mobility. Respiratory Examination: clear to auscultation. CV Examination: normal. Prophylactic Antibiotics: The patient does not require prophylactic antibiotics. Prior Anticoagulants: The patient has taken no anticoagulant or antiplatelet agents except for NSAID medication. ASA Grade Assessment: II - A patient with mild systemic disease. After reviewing the risks and benefits, the patient was deemed in satisfactory condition to undergo the procedure. The anesthesia plan was to use monitored anesthesia care (MAC). Immediately prior to administration of medications, the patient was re-assessed for adequacy to receive sedatives. The heart rate, respiratory rate, oxygen saturations, blood pressure, adequacy of pulmonary ventilation, and response to care were monitored throughout the procedure. The physical status of the patient was re-assessed after the procedure. After I obtained informed consent, the scope was passed under direct vision. Throughout the procedure, the patient's blood pressure, pulse, and oxygen saturations were monitored continuously. The Colonoscope was introduced through the anus and advanced to the hepatic flexure. The colonoscopy was performed without difficulty. The patient tolerated the procedure well. The quality of the bowel preparation was adequate. Hepatic flexure were photographed. Scope In: 4:20:22 PM Scope Out: 4:31:23 PM Total Procedure Duration Time 0 hours 11 minutes 1 second Findings: The perianal and digital rectal examinations were normal. A few small-mouthed diverticula were found in the sigmoid colon. An ulcerated partially obstructing large mass was found at the hepatic flexure. The mass was partially circumferential (involving one-third of the lumen circumference). The mass measured three cm in length. In addition, its diameter measured five mm. No bleeding was present. This was biopsied with a cold forceps for histology. Verification of patient identification for the specimen was done. Area was tattooed with an injection of 2 mL of Abby ink. Impression: - Diverticulosis in the sigmoid colon. - Malignant partially obstructing tumor at the hepatic flexure. Biopsied. Tattooed. - Malignant-appearing tumor in the colon. Removal was not done. Biopsied. Recommendation: - Return patient to [facility] for [facility] care. - Full liquid diet. - Continue present medications. - Await pathology results. - Repeat colonoscopy is recommended for surveillance. The colonoscopy date will be determined after pathology results from today's exam become available for review. Procedure Code(s): --- Professional --- 84682, 52, Colonoscopy, flexible; with biopsy, single or multiple 03748, 52, Colonoscopy, flexible; with directed submucosal injection(s), any substance CPT copyright 2021 [employer]. All rights reserved. The codes documented in this report are preliminary and upon label coder review may be revised to meet current compliance requirements. Ari Silvestre DO 04/13/2024 4:36:22 PM This report has been signed electronically. Number of Addenda: 0 Note Initiated On: 04/13/2024 4:10 PM
--- NOTE | 2024-04-13 16:37 | OP.CCLET_ITS ---
04/13/2024 Marlon Guerra Re : Colonoscopy procedure for Shaan Raymond Dear Shahram This procedure was performed on Saturday, April 13, 2024. My impressions and recommendations are as follows: Impressions : - Diverticulosis in the sigmoid colon. - Malignant partially obstructing tumor at the hepatic flexure. Biopsied. Tattooed. - Malignant-appearing tumor in the colon. Removal was not done. Biopsied. Recommendations : - Return patient to [facility] for ongoing care. - Full liquid diet. - Continue present medications. - Await pathology results. - Repeat colonoscopy is recommended for surveillance. The colonoscopy date will be determined after pathology results from today's exam become available for review. My findings are described in the full procedure note, which is enclosed. If I can be of further assistance, please feel free to contact me at . Sincerely, Ari Silvestre, 04/13/2024 4:36:22 PM This report has been signed electronically.
--- NOTE | 2024-04-13 16:40 | PCM.POST.ANE ---
Anesthesia: Postop Eval I Current Vital Signs Temperature: 97.1 F Pulse Rate: 71 Blood Pressure: 142/65 Respiratory Rate: 16 Pulse Ox: 100 Oxygen Delivery Method: Room Air Assessment Airway patent: Yes Spontaneous unlabored respirations: Yes Mental status: Awake and Calm nausea: No Vomiting: No Anesthesia Complication: No Fluid Hydration Crystalloid volume administer (ml): 400 Total IV fluid infused: 400 Progress Note Anesthesia document: Postop Eval 1 completed: Yes
--- NOTE | 2024-04-13 17:40 | PCM.POSTANE2 ---
Anesthesia Postop Eval I Sum Postop Eval Completion status Anesthesia document: Postop Eval 1 completed: Yes Anesthesia Postop Eval I Summary Anesthesia Postop Eval I Summary: Anesthesia Postop Eval I: Assessment Summary Airway patent Yes 04/13/24 16:41 [email or web address] Spontaneous unlabored Yes 04/13/24 16:41 [email or web address] respirations Mental status Awake,Calm 04/13/24 16:41 [email or web address] nausea No 04/13/24 16:41 [email or web address] Vomiting No 04/13/24 16:41 [email or web address] Anesthesia Postop Eval I: Fluid Summary Crystalloid volume administer 400 04/13/24 16:41 [email or web address] (ml) Colloids volume administered ( ml) Blood Product volume administered (ml) Total IV fluid infused 400 04/13/24 16:41 [email or web address] Anesthesia Postop Eval I: Summary Notes Anesthesia Complication No 04/13/24 16:41 [email or web address] Anesthesia Complication Comment: Post-operative progress note Anesthesia: Postop Eval II Evaluation Mental status: Awake Pain Level: 0 nausea: No Vomiting: No
[2024-04-14 03:23] VITALS: BMI 26.2
[2024-04-14 04:20] VITALS: BP 129/41; PULSE 61; RESP 18; TEMP 36.4; O2SAT 99
[2024-04-14 06:09] LABS: Absolute Lymphocyte Count 1.52 X10^3/uL (0.83-4.51); Absolute Neutrophil Count 4.8 X10^3/uL (2.0-7.7); Basophil# 0.01 X10^3/uL; Basophil% 0.1 % (0-1); Eosinophil# 0.26 X10^3/uL; Eosinophils% 3.4 % (0-5); Hematocrit 30.9 % (40-54); Hemoglobin 9.5 g/dL (13.0-16.5); Lymphocyte # 1.52 X10^3/ul (0.83-4.51); Lymphocyte % 20.1 % (19-41); Mean Corp Hgb Conc 30.7 g/dL (32-36); Mean Corpuscular Hgb 26.2 pg (27.0-32.0); Mean Corpuscular Volume 85.4 fL (80-94); Mean Platelet Vol. 9.4 fl (6.2-12.0); Monocyte# 0.92 X10^3/uL; Monocyte% 12.2 % (0-10); NRBC Flagged by Analyzer 0 % (0-5); Neutrophil # 4.84 X10^3/uL (2.7-7.7); Neutrophil % 63.9 % (47-70); Platelet Count 321 K/mm3 (150-450); RBC Distribution Width CV 13.4 % (11.6-14.6); Red Blood Count 3.62 M/mm3 (4.6-6.2); White Blood Count 7.6 K/mm3 (4.4-11.0)
[2024-04-14 06:28] LABS: Anion Gap 7 (5-15); BUN 16 mg/dL (7-18); Calcium,Total 8.1 mg/dL (8.5-10.1); Chloride 108 mmol/L (98-107); Creatinine, Serum 1.23 mg/dL (0.70-1.30); EST Glomerular Filtration Rate 60 mL/min (>60); Est Glom Filt Rate - Afr Amer 73 mL/min (>60); Estimated Creatinine Clearance 44.78 ml/min; Glucose 105 mg/dL (74-106); Potassium 3.4 mmol/L (3.5-5.1); Sodium Level 138 mmol/L (136-145)
[2024-04-14 06:53] VITALS: O2SAT 95
--- NOTE | 2024-04-14 08:03 | PN.SURG_ITS ---
Subjective Subjective Patient denies any abdominal pain, tolerating full liquids. Colonoscopy yesterday did show a right colon mass biopsy pending Objective Data Objective Data Vital Signs: Vital Signs Temp Pulse Resp BP Pulse Ox O2 Del Method 97.6 F L 61 18 129/41 H 99 Room Air 04/14/24 04:20 04/14/24 04:20 04/14/24 04:20 04/14/24 04:20 04/14/24 04:20 04/14/24 04:20 Oxygen Delivery Method Room Air Weight: 167 lb 1.766 oz Body Mass Index (BMI) 26.2 Intake & Output: Intake and Output for Last 24 Hours 04/12/24 04/13/24 04/14/24 23:59 23:59 23:59 Intake Total 351 / 351 1871 / 1871 Balance 351 / 351 1871 / 1871 Lab / Micro Data 04/14/24 04:45 04/14/24 04:45 Labs: Laboratory Results - last 24 hr 04/11/24 20:43: Crossmatch See Detail 04/12/24 05:18: Carcinoembryonic Ag 2.7 04/13/24 06:56: PT 14.6, INR 1.1, APTT 29.4 04/14/24 04:45: WBC 7.6, RBC 3.62 L, Hgb 9.5 L, Hct 30.9 L, MCV 85.4, MCH 26.2 L , MCHC 30.7 L, RDW Std Deviation 42.0, RDW Coeff of Deepika 13.4, Plt Count 321, MPV 9.4, Immature Gran % (Auto) 0.300, Neut % (Auto) 63.9, Lymph % (Auto) 20.1, [place] % (Auto) 12.2 H, Eos % (Auto) 3.4, Baso % (Auto) 0.1, Absolute Neuts (auto) 4.8, Absolute Lymphs (auto) 1.52, Nucleated RBC % 0, Sodium 138, Potassium 3.4 L, C hloride 108 H, Carbon Dioxide 23.0, Anion Gap 7, BUN 16, Creatinine 1.23, Estim Creat Clear Calc 44.78, Est GFR (MDRD) Af Amer 73, Est GFR (MDRD) Non-Af 60, BUN/Creatinine Ratio 13.0, Glucose 105, Calcium 8.1 L Physical Exam Const oriented x3 and no apparent distress Resp normal respiratory effort Cardio regular rate GI soft to palpation and non-tender Inspection: Negative for abdominal distention Assessment & Plan Assessment/Plan (1) Colonic mass: PLAN: Plan Colonoscopy did show a colon mass yesterday. Okay for patient to be on a diet per surgery. Hemoglobin 9.5 will continue to monitor. If patient is stable possibly will do lap right hemicolectomy as an outpatient if not would plan to add on this week per Dr. Thomas. Did discuss with patient. He was agreeable with plan. Lorraine Melendez M.D. Pager: [phone] [facility] [address] [place] [address], [facility], [address] [place] [address] Office: [phone] Charges/Coding Multi Select Codes Visit Charges Visit Charges: 37721 Subs Hosp L2
--- NOTE | 2024-04-14 08:30 | PN.HOSP_ITS ---
Reason for Visit Reason for Visit: Diagnoses Acute posthemorrhagic anemia (04/12/24) Overweight (04/12/24) Essential (primary) hypertension (04/12/24) Atherosclerotic heart disease of [place] coronary artery with other forms of angina pectoris (04/12/24) Atherosclerosis of [place] arteries of extremities with intermittent claudication, bilateral legs (04/12/24) Other specified diseases of intestine (04/12/24) Other specified abnormal findings of blood chemistry (04/12/24) Personal history of transient ischemic attack (TIA), and cerebral infarction without residual deficits (04/12/24) Subjective Subjective Feeling well. Objective Data Objective Data Vital Signs: Vital Signs Temp Pulse Resp BP Pulse Ox O2 Del Method 36.4 C L 61 18 129/41 H 99 Room Air 04/14/24 04:20 04/14/24 04:20 04/14/24 04:20 04/14/24 04:20 04/14/24 04:20 04/14/24 04:20 Oxygen Delivery Method Room Air Weight: 75.8 kg Body Mass Index (BMI) 26.2 Intake & Output: Intake and Output for Last 24 Hours 04/12/24 04/13/24 04/14/24 23:59 23:59 23:59 Intake Total 351 / 351 1871 / 1871 Balance 351 / 351 1871 / 1871 Lab / Micro Data 04/14/24 04:45 04/14/24 04:45 Labs: Laboratory Results - last 24 hr 04/11/24 20:43: Crossmatch See Detail 04/12/24 05:18: Carcinoembryonic Ag 2.7 04/13/24 06:56: PT 14.6, INR 1.1, APTT 29.4 04/14/24 04:45: WBC 7.6, RBC 3.62 L, Hgb 9.5 L, Hct 30.9 L, MCV 85.4, MCH 26.2 L , MCHC 30.7 L, RDW Std Deviation 42.0, RDW Coeff of Deepika 13.4, Plt Count 321, MPV 9.4, Immature Gran % (Auto) 0.300, Neut % (Auto) 63.9, Lymph % (Auto) 20.1, [place] % (Auto) 12.2 H, Eos % (Auto) 3.4, Baso % (Auto) 0.1, Absolute Neuts (auto) 4.8, Absolute Lymphs (auto) 1.52, Nucleated RBC % 0, Sodium 138, Potassium 3.4 L, C hloride 108 H, Carbon Dioxide 23.0, Anion Gap 7, BUN 16, Creatinine 1.23, Estim Creat Clear Calc 44.78, Est GFR (MDRD) Af Amer 73, Est GFR (MDRD) Non-Af 60, BUN/Creatinine Ratio 13.0, Glucose 105, Calcium 8.1 L Physical Exam Const alert and no apparent distress HEENT head/scalp atraumatic and moist oral mucous membranes Resp normal respiratory effort, no retractions, no use of accessory muscles and clear to auscultation bilaterally Cardio regular rate, regular rhythm, S1 normal heart sound and S2 normal heart sound GI normal to inspection, nondistended, normoactive bowel sounds, soft to palpation, non-tender and non-distended Extremity normal to inspection and full ROM Neuro Sensorium / Orientation: awake and alert Assessment & Plan Assessment/Plan (1) ABLA (acute blood loss anemia): (2) Colonic mass: (3) Elevated troponin: PLAN: Plan ABLA * Hemoglobin dropped down to 6.7. Status post 2 units of packed red blood cells and hemoglobin up to 10.5. * Due to GI bleed. GI bleed * CT showed a 4.5 cm mass suspicious for malignancy in the ascending colon. * Continue to monitor * GI to take for endoscopy. 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 Elevated troponins * Up to 123 * May be due to demand ischemia from the anemia * echocardiogram showed EF of 70%. Chronic conditions * Chronic PVD: Stable * Hypertension: Continue with amlodipine * History of TIA/CVA: VTE prophylaxis with SCDs Charges/Coding Visit Charges Inpatient E&M: 64507 Subs Hosp L2
[2024-04-14 10:20] VITALS: BP 134/66; PULSE 65; RESP 18; TEMP 36.8; O2SAT 98
[2024-04-14] MEDS: Pantoprazole Sodium 40 MG in 0.9% Normal Saline (100mL MB+) 100 ML 330 MG IV (10:33)
--- NOTE | 2024-04-14 15:20 | PN.GI_ITS ---
Subjective Subjective Patient underwent colonoscopy yesterday and was discovered to have a large tumor in his colon. This was at the level of the hepatic flexure. He does not have any pain at this time. Objective Data Objective Data Vital Signs: Vital Signs Temp Pulse Resp BP Pulse Ox O2 Del Method 98.3 F 65 18 134/66 H 98 Room Air 04/14/24 10:20 04/14/24 10:20 04/14/24 10:20 04/14/24 10:20 04/14/24 10:20 04/14/24 10:20 Oxygen Delivery Method Room Air Weight: 167 lb 1.766 oz Body Mass Index (BMI) 26.2 Intake & Output: Intake and Output for Last 24 Hours 04/12/24 04/13/24 04/14/24 23:59 23:59 23:59 Intake Total 351 / 351 1871 / 1871 110 / 110 Balance 351 / 351 1871 / 187 110 / 110 Lab / Micro Data 04/14/24 04:45 04/14/24 04:45 Labs: Laboratory Results - last 24 hr 04/14/24 04:45: WBC 7.6, RBC 3.62 L, Hgb 9.5 L, Hct 30.9 L, MCV 85.4, MCH 26.2 L , MCHC 30.7 L, RDW Std Deviation 42.0, RDW Coeff of Deepika 13.4, Plt Count 321, MPV 9.4, Immature Gran % (Auto) 0.300, Neut % (Auto) 63.9, Lymph % (Auto) 20.1, [place] % (Auto) 12.2 H, Eos % (Auto) 3.4, Baso % (Auto) 0.1, Absolute Neuts (auto) 4.8, Absolute Lymphs (auto) 1.52, Nucleated RBC % 0, Sodium 138, Potassium 3.4 L, C hloride 108 H, Carbon Dioxide 23.0, Anion Gap 7, BUN 16, Creatinine 1.23, Estim Creat Clear Calc 44.78, Est GFR (MDRD) Af Amer 73, Est GFR (MDRD) Non-Af 60, BUN/Creatinine Ratio 13.0, Glucose 105, Calcium 8.1 L Physical Exam Const alert and no apparent distress HEENT head/scalp atraumatic and moist oral mucous membranes Resp normal respiratory effort, no retractions, no use of accessory muscles and clear to auscultation bilaterally Cardio regular rate, regular rhythm, S1 normal heart sound and S2 normal heart sound GI normal to inspection, nondistended, normoactive bowel sounds, soft to palpation, non-tender and non-distended Extremity normal to inspection and full ROM Neuro Sensorium / Orientation: awake and alert Assessment & Plan Assessment/Plan (1) ABLA (acute blood loss anemia): (2) Colonic mass: (3) Elevated troponin: (4) Coronary artery disease: QUALIFIERS: Coronary Disease-Associated Artery/Lesion type: [place] artery [place] vs. transplanted heart: [place] heart Associated angina: with stable angina Qualified Code(s): I25.118 - Atherosclerotic heart disease of [place] coronary artery with other forms of angina pectoris (5) 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: QUALIFIERS: Peripheral atherosclerosis artery type: [place] artery Qualified Code(s): I70.213 - Atherosclerosis of [place] arteries of extremities with intermittent claudication, bilateral legs (6) Chronic hypertension: (7) History of stroke: (8) Overweight (BMI 25.0-29.9): PLAN: Plan 79-year-old gentleman who comes in with lower GI bleeding and discovered to have a significant anemia ABLA with BRBPR requiring transfusion with hemoglobin of 6.7 g/dL present on admission. Agree with to proceed with transfusion of blood ordered in the ER and recheck CBC after last unit to ensure improvement. CT this admission positive for Masslike wall thickening of the Ascending Colon up to ~4.5 cm suspicious for malignancy with a possible metastatic lesion noted in liver likely causing acute GI bleed in the setting of known colonic polyposis on colonoscopy ~10 years ago . He underwent colonoscopy and was discovered to have large colonic polyp. He is being seen by surgery for right hemicolectomy. Hemoglobin seems to be stable at this time. Diet per surgery. Charges/Coding Visit Charges Inpatient E&M: 42980 Subs Hosp L3
[2024-04-14 16:00] VITALS: BP 182/65; PULSE 69; RESP 16; TEMP 36.6; O2SAT 100
[2024-04-14 20:36] VITALS: BP 159/68; PULSE 64; RESP 16; TEMP 36.5; O2SAT 100
[2024-04-15 02:15] VITALS: BP 170/75; PULSE 70; RESP 16; TEMP 36.5; O2SAT 100
[2024-04-15 05:52] VITALS: BMI 26.6
[2024-04-15 06:04] LABS: Absolute Lymphocyte Count 1.42 X10^3/uL (0.83-4.51); Absolute Neutrophil Count 3.1 X10^3/uL (2.0-7.7); Basophil# 0.03 X10^3/uL; Basophil% 0.5 % (0-1); Eosinophil# 0.33 X10^3/uL; Eosinophils% 5.9 % (0-5); Hematocrit 30.5 % (40-54); Hemoglobin 9.3 g/dL (13.0-16.5); Lymphocyte # 1.42 X10^3/ul (0.83-4.51); Lymphocyte % 25.6 % (19-41); Mean Corp Hgb Conc 30.5 g/dL (32-36); Mean Corpuscular Hgb 26.2 pg (27.0-32.0); Mean Corpuscular Volume 85.9 fL (80-94); Mean Platelet Vol. 9.3 fl (6.2-12.0); Monocyte# 0.67 X10^3/uL; Monocyte% 12.1 % (0-10); NRBC Flagged by Analyzer 0 % (0-5); Neutrophil # 3.09 X10^3/uL (2.7-7.7); Neutrophil % 55.7 % (47-70); Platelet Count 303 K/mm3 (150-450); RBC Distribution Width CV 13.4 % (11.6-14.6); RBC Distribution Width SD 42.2 fl (35.1-43.9); Red Blood Count 3.55 M/mm3 (4.6-6.2); White Blood Count 5.6 K/mm3 (4.4-11.0)
[2024-04-15 08:00] VITALS: BP 152/74; PULSE 64; RESP 16; TEMP 36.7; O2SAT 99
--- NOTE | 2024-04-15 08:55 | PN.HOSP_ITS ---
Reason for Visit Reason for Visit: Diagnoses Acute posthemorrhagic anemia (04/12/24) Overweight (04/12/24) Essential (primary) hypertension (04/12/24) Atherosclerotic heart disease of [place] coronary artery with other forms of angina pectoris (04/12/24) Atherosclerosis of [place] arteries of extremities with intermittent claudication, bilateral legs (04/12/24) Other specified diseases of intestine (04/12/24) Other specified abnormal findings of blood chemistry (04/12/24) Personal history of transient ischemic attack (TIA), and cerebral infarction without residual deficits (04/12/24) Subjective Subjective Feels well. No events overnight. Objective Data Objective Data Vital Signs: Vital Signs Temp Pulse Resp BP Pulse Ox O2 Del Method 36.5 C L 70 16 170/75 H 100 Room Air 04/15/24 02:15 04/15/24 02:15 04/15/24 02:15 04/15/24 02:15 04/15/24 02:15 04/15/24 02:15 Oxygen Delivery Method Room Air Weight: 77 kg Body Mass Index (BMI) 26.6 Intake & Output: Intake and Output for Last 24 Hours 04/13/24 04/14/24 04/15/24 23:59 23:59 23:59 Intake Total 1870 / 1870 110 / 310 500 / 500 Balance 1870 / 1870 110 / 310 500 / 500 Lab / Micro Data 04/15/24 05:55 04/14/24 04:45 Labs: Laboratory Results - last 24 hr 04/15/24 05:55: WBC 5.6, RBC 3.55 L, Hgb 9.3 L, Hct 30.5 L, MCV 85.9, MCH 26.2 L , MCHC 30.5 L, RDW Std Deviation 42.2, RDW Coeff of Deepika 13.4, Plt Count 303, MPV 9.3, Immature Gran % (Auto) 0.200, Neut % (Auto) 55.7, Lymph % (Auto) 25.6, [place] % (Auto) 12.1 H, Eos % (Auto) 5.9 H, Baso % (Auto) 0.5, Absolute Neuts (auto) 3.1, Absolute Lymphs (auto) 1.42, Nucleated RBC % 0 Physical Exam Const alert, oriented x3, no apparent distress, average body habitus and healthy appearing General Appearance: cooperative HEENT normocephalic, head/scalp atraumatic, hearing grossly normal bilaterally and moist oral mucous membranes Resp normal respiratory effort and no retractions Skin Skin Narrative: Patient has no evidence of rash, abscess or jaundice. Neuro no focal motor deficits Sensorium / Orientation: awake and alert Speech: speech normal Psych affect normal Assessment & Plan Assessment/Plan (1) ABLA (acute blood loss anemia): (2) Colonic mass: (3) Elevated troponin: PLAN: Plan ABLA * Hemoglobin dropped down to 6.7. Status post 2 units of packed red blood cells and hemoglobin up to 10.5. * Due to GI bleed. GI bleed * CT showed a 4.5 cm mass suspicious for malignancy in the ascending colon. * Continue to monitor * GI to take for endoscopy. 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 DW Dr. Melendez, pt to follow up Dr. Thomas and have surgery as outpt. Elevated troponins * Up to 123 * May be due to demand ischemia from the anemia * echocardiogram showed EF of 70%. Chronic conditions * Chronic PVD: Stable * Hypertension: Continue with amlodipine * History of TIA/CVA: VTE prophylaxis with SCDs
--- NOTE | 2024-04-15 09:18 | PCM.PN.SRG ---
Subjective Subjective Patient's hemoglobin stable. Still states been having bowel movements denies any gross blood. Objective Data Objective Data Vital Signs: Vital Signs Temp Pulse Resp BP Pulse Ox O2 Del Method 97.7 F L 70 16 170/75 H 100 Room Air 04/15/24 02:15 04/15/24 02:15 04/15/24 02:15 04/15/24 02:15 04/15/24 02:15 04/15/24 02:15 Oxygen Delivery Method Room Air Weight: 169 lb 12.095 oz Body Mass Index (BMI) 26.6 Intake & Output: Intake and Output for Last 24 Hours 04/13/24 04/14/24 04/15/24 23:59 23:59 23:59 Intake Total 187 / 187 110 / 310 500 / 500 Balance 187 / 187 110 / 310 500 / 500 Lab / Micro Data 04/15/24 05:55 04/14/24 04:45 Labs: Laboratory Results - last 24 hr 04/15/24 05:55: WBC 5.6, RBC 3.55 L, Hgb 9.3 L, Hct 30.5 L, MCV 85.9, MCH 26.2 L, MCHC 30.5 L, RDW Std Deviation 42.2, RDW Coeff of Deepika 13.4, Plt Count 303, MPV 9.3, Immature Gran % (Auto) 0.200, Neut % (Auto) 55.7, Lymph % (Auto) 25.6, [place] % (Auto) 12.1 H, Eos % (Auto) 5.9 H, Baso % (Auto) 0.5, Absolute Neuts (auto) 3.1, Absolute Lymphs (auto) 1.42, Nucleated RBC % 0 Physical Exam Const oriented x3 and no apparent distress Resp normal respiratory effort Cardio regular rate GI soft to palpation and non-tender Inspection: Negative for abdominal distention Assessment & Plan Assessment/Plan (1) Colonic mass: PLAN: Plan Colonoscopy did show a colon mass yesterday pathology still pending. Okay for a regular diet per surgery. Hemoglobin remained stable at 9.3 likely patient can be discharged plan to follow-up with Dr. Thomas for outpatient right hemicolectomy. Lorraine Melendez M.D. Pager: [phone] [facility] [address] [place] [address], [facility] [place], [address] [place] [address] Office: [phone] Charges/Coding Multi Select Codes Visit Charges Visit Charges: 97842 Subs Hosp L2
[2024-04-15] MEDS: 0.9% Normal Saline (1000mL) 1,000 ML 30 ML IV (10:16)
[2024-04-15] MEDS: Pantoprazole Sodium 40 MG in 0.9% Normal Saline (100mL MB+) 100 ML 330 MG IV (10:16)
--- NOTE | 2024-04-15 11:25 | PCM.DC.SUM ---
Providers Date of Admission: 04/12/24 Primary Care Physician: MARYAM Guerra Consultations 04/12/24 02:59 Consult: Gastroenterology Routine Consulting Provider: [facility] Reason for Consult: ABLA with Colon Mass. EMERGENT Consult: No Notified: Yes Date Notified: 04/12/24 Time Notified: 08:05 Method of Notification: Text Consult: General Surgery Routine Consulting Provider: Santana Francois Reason for Consult: ABLA with Colon Mass. EMERGENT Consult: No Notified: Yes Date Notified: 04/12/24 Time Notified: 08:08 Method of Notification: Text Reason For Visit: ABLA, COLON MASS & ELEVATED TROPONIN Diagnosis Discharge Diagnosis (1) ABLA (acute blood loss anemia): Status: Acute Code(s): D62 - Acute posthemorrhagic anemia (2) Colonic mass: Status: Acute Code(s): K63.89 - Other specified diseases of intestine (3) Elevated troponin: Status: Acute Code(s): R79.89 - Other specified abnormal findings of blood chemistry Plan ABLA Hemoglobin dropped down to 6.7. Status post 2 units of packed red blood cells and hemoglobin up to 10.5. Due to GI bleed. GI bleed CT showed a 4.5 cm mass suspicious for malignancy in the ascending colon. Continue to monitor GI to take for endoscopy. 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 DW Dr. Melendez, pt to follow up Dr. Thomas and have surgery as outpt. Elevated troponins Up to 123 May be due to demand ischemia from the anemia echocardiogram showed EF of 70%. Chronic conditions Chronic PVD: Stable Hypertension: Continue with amlodipine History of TIA/CVA: VTE prophylaxis with SCDs Medications at Discharge Home Medications amlodipine 5 mg tablet 10 mg PO DAILY PRN bp 04/11/24 Hospital Course Operations None Procedures Colonoscopy Summary of Care Provided Hospital Course: Patient presents with bright red blood per rectum. Patient hemoglobin dropped down to 6.7. He was transfused 2 units prior to all blood cells and hemoglobin remained stable. Patient had a mass in his colon noted on CT. Patient underwent colonoscopy malignant partially obstructing tumor at the hepatic flexure that was biopsied. Patient was seen by general surgery and the plan is for the patient have a partial colectomy. Weight / BMI Weight Weight: 77 kg Body Mass Index (BMI) 26.6 ABG / Lab / Microbiology Data 04/15/24 05:55 04/14/24 04:45 Laboratory: Laboratory Results - last 24 hr 04/15/24 05:55: WBC 5.6, RBC 3.55 L, Hgb 9.3 L, Hct 30.5 L, MCV 85.9, MCH 26.2 L, MCHC 30.5 L, RDW Std Deviation 42.2, RDW Coeff of Deepika 13.4, Plt Count 303, MPV 9.3, Immature Gran % (Auto) 0.200, Neut % (Auto) 55.7, Lymph % (Auto) 25.6, [place] % (Auto) 12.1 H, Eos % (Auto) 5.9 H, Baso % (Auto) 0.5, Absolute Neuts (auto) 3.1, Absolute Lymphs (auto) 1.42, Nucleated RBC % 0 D/C Instructions Discharge Diet: No restrictions Meaningful Use Info Meaningful Use Meaningful Use Diagnoses (Choose all that apply): None applicable Ischemic Stroke Statin Dosing Therapy Reference: STATIN DOSE THERAPY REFERENCE: * Patients > 75 years receive moderate or high dose statin therapy. * Patients 75 years or YOUNGER should receive HIGH intensity statin dose unless contraindicated. You will be required to document reason for non-treatment if statin daily dose does not meet guidelines. HIGH DOSE STATIN THERAPY DAILY Atorvastatin > than or = to 40 mg Rosuvastatin > than or = to 20 mg Amlodipine + Atorvastatin > than or = to 2.5/40 mg Ezetimibe + Simvastatin 10/80 mg Simvastatin 80mg Discharge Plan Admission Admit Date/Time: 04/12/24 01:56 Primary Reason for Your Visit: Anemia Attending Provider: Stevie Harrington Primary Care Provider: Tami Omalley Consulting Providers: Darrel Carpenter; Santana Francois Discharge Orders/Prescriptions Prescriptions: Continued amlodipine 5 mg Tablet 10 mg PO DAILY PRN (Reason: bp) Patient Comments: Pt states he takes it as needed, does not follow MD orders. Referrals / Follow Up: Du Thomas MD [Med Staff - Active Staff] - Within 1 Week Tami Omalley, CALCULATOR OPERATOR-C [Primary Care Provider] - Within 2 Weeks Disposition Disposition (needs filled in before D/C Order can be placed): Home, Self Care Charges/Coding Visit Charges Inpatient E&M: 56249 Disch Hosp
[2024-04-15 14:00] VITALS: BP 148/70; PULSE 66; RESP 16; TEMP 36.6; O2SAT 99
== END 2024-04-15 14:36 | disposition home or self-care (01) | DRG 375 ==
LOC: ED 22:32 → PCU 04-12 02:10
PROVIDERS: Anesthesiology; Internal Medicine Gastroenterology; Admitting Provider Internal Medicine; Emergency Provider Emergency Medicine; PCP Nurse Practitioner Family
PROC: 0DJD8ZZ Inspection of Lower Intestinal Tract, Via Natural or Artificial Opening Endoscopic (ICD-10-PCS; CPT 45378; principal; 2024-04-13 16:10)
DX: C18.3 Malignant neoplasm of hepatic flexure (principal); K92.2 Gastrointestinal hemorrhage, unspecified; D62 Acute posthemorrhagic anemia; I10 Essential (primary) hypertension; I70.213 Atherosclerosis of native arteries of extremities with intermittent claudication, bilateral legs; K57.30 Diverticulosis of large intestine without perforation or abscess without bleeding; I25.118 Atherosclerotic heart disease of native coronary artery with other forms of angina pectoris; M19.90 Unspecified osteoarthritis, unspecified site; E66.3 Overweight; Z87.891 Personal history of nicotine dependence; Z86.73 Personal history of transient ischemic attack (TIA), and cerebral infarction without residual deficits; R79.89 Other specified abnormal findings of blood chemistry; Z68.27 Body mass index [BMI] 27.0-27.9, adult; Z95.1 Presence of aortocoronary bypass graft; Z90.49 Acquired absence of other specified parts of digestive tract; Z98.52 Vasectomy status; Z79.899 Other long term (current) drug therapy; K63.89 Other specified diseases of intestine
CPT/HCPCS: 36415; 71275; 74174; 80048; 80053; 80076; 82378; 82728; 83540; 83550; 83690; 83735; 84100; 84443; 84484; 85025; 85610; 85730; 86850; 86900; 86901; 86920; 88305; 88312; 88341; 88342; 93005; 93306; 94668; 99285; J7030; J7040; P9016; Q9967; A4216; A4648; J1940; J2405

== ENCOUNTER → 2024-04-11 | Outpatient (CLI) | payer SELFPAY ==
[2024-04-11 17:31] LABS: Absolute Lymphocyte Count 1.28 X10^3/uL (0.83-4.51); Absolute Neutrophil Count 3.2 X10^3/uL (2.0-7.7); Basophil# 0.02 X10^3/uL; Basophil% 0.4 % (0-1); Eosinophils% 1.9 % (0-5); Hematocrit 23.9 % (40-54); Hemoglobin 7.2 g/dL (13.0-16.5); Lymphocyte # 1.28 X10^3/ul (0.83-4.51); Lymphocyte % 24.1 % (19-41); Mean Corp Hgb Conc 30.1 g/dL (32-36); Mean Corpuscular Hgb 26.2 pg (27.0-32.0); Mean Corpuscular Volume 86.9 fL (80-94); Mean Platelet Vol. 9.8 fl (6.2-12.0); Monocyte# 0.72 X10^3/uL; Monocyte% 13.6 % (0-10); NRBC Flagged by Analyzer 0 % (0-5); Neutrophil # 3.17 X10^3/uL (2.7-7.7); Neutrophil % 59.6 % (47-70); Platelet Count 321 K/mm3 (150-450); RBC Distribution Width CV 13.4 % (11.6-14.6); RBC Distribution Width SD 42.7 fl (35.1-43.9); Red Blood Count 2.75 M/mm3 (4.6-6.2); White Blood Count 5.3 K/mm3 (4.4-11.0)
[2024-04-11 18:13] LABS: AST(SGOT) 19 U/L (15-37); Alanine Aminotransfer ALT/SGPT 19 U/L (16-61); Albumin, Serum 3.5 g/dL (3.2-5.0); Alkaline Phosphatase 89 U/L (45-117); Anion Gap 6 (5-15); BUN 15 mg/dL (7-18); BUN/Creat Ratio 13.2 RATIO (10-20); Calcium,Total 9.2 mg/dL (8.5-10.1); Chloride 104 mmol/L (98-107); Creatinine, Serum 1.14 mg/dL (0.70-1.30); EST Glomerular Filtration Rate 66 mL/min (>60); Est Glom Filt Rate - Afr Amer 80 mL/min (>60); Globulin 3.4 g/dL (2.2-4.2); Glucose 108 mg/dL (74-106); Potassium 3.9 mmol/L (3.5-5.1); Protein, Total 6.9 g/dL (6.4-8.2); Sodium Level 136 mmol/L (136-145)
[2024-04-11 18:22] LABS: Troponin-I HS 123 pg/mL (3.0-78.0)
== END | disposition home or self-care (01) ==
LOC: BFHLAB 13:43
PROVIDERS: PCP Nurse Practitioner Family; Referring Provider Nurse Practitioner Family; Visit Provider Nurse Practitioner Family
DX: R07.9 Chest pain, unspecified (principal); R06.02 Shortness of breath
CPT/HCPCS: 36415; 80053; 83880; 84484; 85025; 85379

== ENCOUNTER 2024-04-27 12:10 | Inpatient (IN) | payer MEDICARE, SELFPAY ==
[2024-04-27] VITALS (18 sets, daily range): BP systolic 142–167; BP diastolic 55–79; PULSE 55–74; RESP 10–18; TEMP 36.1–37.1; O2SAT 10–100; BMI 27.3
--- NOTE | 2024-04-27 | IMM_PTH ---
PATIENT: JARED PEREZ LOC: MS3 U#:[id number] AGE/SX: 79/M ROOM: [facility] [place] RE04/27/[address]: Dr. Du Thomas MD : [id number] BED: 1 DIS: 05/01/2024 SPEC #: [id number] RECD: 05/01/24 13:14 STATUS: SCOTT REQ #: [id number] MATTHEW: 04/27/24 00:[address]: Du Thomas DEPT: IMMUNOHISTOCHEMISTRY RECD BY: Nick Shaikh ENTERED: 05/01/24 13:15 SP TYPE: IMMUNO OTHR DR: MD Tami Vilchis, SHOTGUN SHELL ASSEMBLY MACHINE OPERATOR-C Tissues: Colon, NOS Procedures: MLH-1 (add) MSH6 (add) Anti-PMS2 (add) HER2 DIONNA (add) KI-67 (add) P53 (add) MSH2 (initial) CDX2 (add) MOC-31 (add) PHYSICIAN & [address] [address] SPECIMEN INFORMATION: Tissue Source: Right colon and terminal ileum Clinical Info: Colon cancer Specimen Number: [id number] CPT code: 58128,47839q8 METHODOLOGY: Deparaffinized sections of prefer/formalin-fixed tissue or PAP/DQ stained slides are incubated with monoclonal/polyclonal antibodies/oligonucleotide probes. Localization is made via biotin free immunoperoxidase method. Appropriate controls are performed and reacted as expected. Results on target cell population are indicated in the following table: RESULTS: ANTIBODY / CLONE RESULT Block #7 Her-2neu (CB11) negative MOC-31 (4561) positive MLH-1 (M1) positive MSH2 (25D12) positive MSH6 (44) positive PMS2 (TRN1830) positive Ki-67 (30-9) positive, 80% P53 (DO-7) positive, missense pattern CDX2 ([id number]) positive Testing for Her2 by IHC if equivocal, recommend testing for Her2 by FISH(remove/not needed) These tests were developed and their performance characteristics determined by [facility]. They may not have been cleared or approved by the U.S. Food and Drug Administration. The FDA has determined that such clearance or approval is not necessary. The above immunohistochemical/dualISH markers are ordered and reviewed by the Pathologist. INTERPRETATION: Right colon, hemicolectomy: Invasive poorly differentiated adenocarcinoma. Result of Microsatellite Instability Study: Negative (no loss of mismatch protein; no microsatellite instability detected). AM/mr 05/02/2024
[2024-04-27] MEDS: Lactated Ringers 1,000 ML 40 ML IV ×2 (06:28→15:24)
[2024-04-27] MEDS: Gabapentin 600 MG Tablet PO (06:28)
[2024-04-27] MEDS: Acetaminophen 500 MG Tablet 1000 MG PO ×3 (06:28→23:13)
[2024-04-27] MEDS: Enoxaparin 40 MG/0.4 ML Syringe SC (06:29)
[2024-04-27 06:36] LABS: Hematocrit 30.5 % (40-54); Hemoglobin 9.4 g/dL (13.0-16.5); Mean Corp Hgb Conc 30.8 g/dL (32-36); Mean Corpuscular Volume 84.3 fL (80-94); Mean Platelet Vol. 9.7 fl (6.2-12.0); Platelet Count 346 K/mm3 (150-450); RBC Distribution Width CV 13.7 % (11.6-14.6); RBC Distribution Width SD 42.4 fl (35.1-43.9); Red Blood Count 3.62 M/mm3 (4.6-6.2); White Blood Count 7.1 K/mm3 (4.4-11.0)
--- NOTE | 2024-04-27 06:42 | PCM.PRE.AN2 ---
ASA Classification* ASA Classification ASA Classification: 3 Assessment & Plan Anesthesia* Anesthesia Assessment Anesthesia Assessment: Discussed sedation and/or anesthesia options, risks, benefits, and alternatives with patient/parents/legal guardian/POA. Questions invited. The patient/parents/legal guardian/POA seems to understand and agrees to proceed with anesthesia plan. Reviewed the physical assessment, medical history, allergy history and patient home medications list prior to surgery/procedure/anesthetic and documented any changes. Performed airway and anesthesia risk assessments. Anesthesia Type Anesthesia Type: General Anesthesia Focused Assessment* Temperature: 97.4 F Pulse Rate: 55 Blood Pressure: 154/55 Respiratory Rate: 16 Pulse Ox: 100 Airway Assessment Mouth opens: >3 cm Mallampati Score: II Focused Labs Anesthesia Preop lab: CBC WBC 7.1 K/mm3 (4.4-11.0) 04/27/24 06:27 RBC 3.62 M/mm3 (4.6-6.2) L 04/27/24 06:27 Hgb 9.4 g/dL (13.0-16.5) L 04/27/24 06:27 Hct 30.5 % (40-54) L 04/27/24 06:27 Plt Count 346 K/mm3 (150-450) 04/27/24 06:27 CHEMISTRY Potassium 3.4 mmol/L (3.5-5.1) L 04/14/24 04:45 Sodium 138 mmol/L (136-145) 04/14/24 04:45 Magnesium 2.1 mg/dL (1.6-2.6) 04/12/24 05:18 Phosphorus 3.5 mg/dL (2.5-4.9) 04/12/24 05:18 BUN 16 mg/dL (7-18) 04/14/24 04:45 Creatinine 1.23 mg/dL (0.70-1.30) 04/14/24 04:45 Glucose 105 mg/dL (74-106) 04/14/24 04:45 POC Glucose 115 mg/dL (70-110) H 10/31/14 06:04 TSH 3.360 uIU/mL (0.358-3.740) 04/12/24 05:18 COAG PT 14.6 SECONDS (11.7-14.9) 04/13/24 06:56 Pre-Assessment Diagnosis/Proposed Procedure Planned Operative Procedure(s): (R) ERAS, Laparoscopic, Cesar Colectomy Anesthesia History 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 When Was Last Pacemaker Check QUESTION #4 FULL TEXT: You/Your Family Experience fever (hyperthermia) with Anesthesia Last Oral Intake Last Oral intake: Last Oral Intake NPO since 04:00 04/27/24 06:20 Meds taken in AM with sips of Yes 04/27/24 06:20 water? 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 Female No 04/25/24 15:00 HX of Motion Sickness No 04/25/24 15:00 HX of N/V After Surgery No 04/25/24 15:00 Non-Smoker Yes 04/25/24 15:00 Duration of Surgery greater No 04/25/24 15:00 than 60 minutes Number of Risk Factors 1 04/25/24 15:00 PONV Score Low Risk 04/25/24 15:00 Height & Weight Height & Weight: Anesthesia: Height & Weight Height 5 ft 7 in 04/27/24 06:20 Weight: 79.2 kg 04/27/24 06:20 Body Mass Index (BMI) 27.3 04/27/24 06:20 Respiratory Assessment Respiratory Assessment - 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 Has anyone observed you stop No 04/25/24 15:00 breathing during sleep? STOP Results Negative 04/25/24 15:00 QUESTION #5 FULL TEXT : Do you snore loudly (louder than talking or can be heard through closed doors)? 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 Specify any problems Hx of Preganancy in last 3 N/A 04/25/24 15:00 Months Nurse Filling Out Transfusion VCHRISTIN 04/25/24 15:00 & Questions: Date: 04/25/24 04/25/24 15:00 Time: 15:02 04/25/24 15:00 Patient unable to answer at this time (ie. 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 Hx Now No 04/25/24 15:00 Gestational Age (in weeks): EDC: Hx Hx Para Hx Section SAB No 04/25/24 15:00 Active Medications Active Medications: Current Medications Generic Name Dose Route Start Last Admin Trade Name Freq PRN Reason Stop Dose Admin Acetaminophen 1,000 mg 04/27/24 07:30 04/27/24 06:28 Acetaminophen 500 Mg Tablet PO 04/27/24 07:31 1,000 mg PREOP ONE Administration Enoxaparin Sodium 40 mg 04/27/24 07:30 04/27/24 06:29 Enoxaparin 40 Mg/0.4 Ml Syringe SC 04/27/24 07:31 40 mg PREOP ONE Administration Gabapentin 600 mg 04/27/24 07:30 04/27/24 06:28 Gabapentin 600 Mg Tablet PO 04/27/24 07:31 600 mg PREOP ONE Administration Cefotetan Disodium 2 gm/ 100 mls @ 200 mls/hr 04/27/24 07:30 Sodium Chloride IV 04/27/24 07:59 PREOP ONE Lactated Ringer's 1,000 mls @ 40 mls/hr 04/27/24 07:30 04/27/24 06:28 IV 40 mls/hr .Q25H EVITA Administration Insulin Human Lispro 0 unit 04/27/24 07:30 Insulin Lispro 100 Unit/Ml Insuln.Pen SC Q4H PRN PRN BG >/= 180, SEE PROTOCOL Protocol PFSH Medical History Pre-op testing Wears dentures Arthritis Anemia Gastric reflux Former smoker History of edema History of echocardiogram History of stress test Cardiology follow-up encounter Overweight (BMI 25.0-29.9) Coronary artery disease 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 Chronic hypertension Acute alteration in mental status Neuropathy Vasectomy planned Hyponatremia TIA (transient ischemic attack) CVA (cerebral vascular accident) Hypertension History of stroke Tobacco use Benign essential hypertension Home Medications ?Medication ?Instructions ?Recorded ?Last Taken ?Type metronidazole 500 mg tablet 500 mg PO .COMPLEX PRE-OP 04/20/24 04/26/24 Rx ANTIBIOTIC #6 tabs neomycin 500 mg tablet 500 mg PO .COMPLEX PRE-OP 04/20/24 04/26/24 Rx ANTIBIOTIC #6 tabs amlodipine 5 mg tablet 5 mg PO BID HEART #60 tabs 04/25/24 04/27/24 05:00 Rx metoprolol tartrate 25 mg tablet 25 mg PO BID BP #60 tabs 04/25/24 04/27/24 05:00 Rx Allergy/AdvReac Type Severity Reaction Status Date / Time No Known Allergies Allergy Verified 04/27/24 05:58 Family History Father Arthritis Alcohol abuse Mother Alcohol abuse Liver disease Surgical History History of tonsillectomy History of appendectomy 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
[2024-04-27 06:48] LABS: Magnesium 1.9 mg/dL (1.6-2.6)
--- NOTE | 2024-04-27 07:06 | HP.PCM_ITS ---
History and Physical Date of Admission: 04/27/24 Date of Service: 04/20/24 MR#: [id number] Acct: [id number] Name: JARED PEREZ Rep #: [id number] : 1945 Provider: Dr. Du Thomas MD Age/Sex: 79/M Location: [facility] Status: Signed Intake Vital Signs 04/13/2416:14 04/20/2412:43 Height 5 ft 7 in 5 ft 7 in Weight: 176 lb BMI 27.6 BP 184/71 H Blood Pressure Location Rt brachial Position Sitting Respiration 18 Pulse 65 Pulse Source Monitor Temp 97.2 F L Temp Source Temporal Pulse Oximetry (%) 99 Oxygen Delivery Method room air Intake Visit Reasons: COLON MASS Chief Complaint: colon mass Accompanied by: Allergies No Known Allergies Allergy (Verified 04/20/24 12:45) Medications ?Medication ?Instructions ?Recorded ?Confirmed ?Type amlodipine 5 mg tablet 10 mg PO DAILY PRN bp 04/11/24 04/20/24 History metronidazole 500 mg tablet 500 mg PO .COMPLEX #6 tabs 04/20/24 04/20/24 Rx neomycin 500 mg tablet 500 mg PO .COMPLEX #6 tabs 04/20/24 04/20/24 Rx Have you fallen in the past year?: No PFSH Medical History History of stroke Acute alteration in mental status Neuropathy Vasectomy planned Tonsillectomy planned Hyponatremia TIA (transient ischemic attack) CVA (cerebral vascular accident) Hypertension Surgical History History of appendectomy Hx of CABG Social History (Updated 04/20/24 @ 12:43 by Tabitha Gibson LPN) Smoking Status: Former smoker alcohol intake: never substance use type: does not use HPI HPI HPI: Patient is a 79-year-old male who presents for colon cancer that was first diagnosed via colonoscopy secondary to an admission for occult anemia. I was actually consulted and saw the patient prior to the scope on 04/12/2024 while he was an inpatient. Patient was discharged after his hemoglobin remained stable with plans for short interval outpatient colectomy. He presents today with his . He shares today that he is still feeling weak and tries not to go there. He also describes some light right sided chest discomfort. Although he notes that he had no troubles walking from the car to our office today. He adds that this would have caused trouble in the past. He provides an interval update that he is only had 1 bowel movement of size since he returned home from the hospital. With experiencing his constipation he shares that he first tried a dose of milk of magnesia. When this did not have the desired result he did resort to using some Epson salts and thereby had a nice movement but shares that there was a little color with the stool. He otherwise states that he is doing well and reports eating a well-balanced diet. The patient is not prescribed anticoagulants/blood thinners. Relevant prior abdominal surgical history includes: Open appendectomy as an adolescent. Staging imaging has been done. There are no signs of metastasis on this imaging. Baseline CEA level has been obtained and is: 2.7 (04/12/2024). Final pathology did result from patient's colonoscopy and showed poorly differentiated adenocarcinoma. ROS General General: Yes weakness; No weight change, appetite, fatigue, colon cancer or breast cancer HEENT HEENT: No difficulty swallowing, eye injury, eye surgery, swollen glands or hoarseness Endo Endocrine: No thyroid disease, diabetes mellitus, thyroid cancer, Hair loss, heat intolerance or cold intolerance Skin Skin: No rash or changing moles Musc Musculoskeletal: No back problems, arthritis, rheumatoid arthritis, gout or joint pain Cardio Cardiovascular: Yes murmur, high blood pressure and shortness of breat with exertion; No pacemaker, heart disease, atrial fibrillation, heart attack, heart stent, palpitations or chest pain Psych Psychiatric: No depression, anxiety or hearing voices Resp Respiratory: No shortness of breath, No sleep apnea, Yes cough, No COPD, No asthma, No emphysema and No wheezing Gastro Gastrointestinal: No abdominal pain, No nausea or vomiting, No diarrhea, No constipation, No blood in stool, No acid reflux, No hemorrhoids, No ulcers, No gallbladder problem and No black,tarry stools Aleks Hematologic: Yes blood thinners, No blood disorders, No bleeding, No anemia and No blood clots Additional Details: ASA Neuro Neurologic: No system reviewed and no additional complaints, except as documented, No as per HPI, No abnormal gait, No abnormal hearing, No abnormal movements, No abnormal speech, No behavioral changes, Yes burning sensations, No confusion, No convulsions, Yes disequilibrium, Yes dizziness, No localized w eakness, No frequent falls, No headache(s), No lack of coordination, No loss of vision, No memory loss, Yes numbness, No other visual disturbances, Yes radicular pain, No restless legs, No sensory deficit, No syncope, Yes tingling, No tremor(s), Yes weakness and No other Exam Const General: cooperative and no acute distress Orientation: alert, awake and oriented x3 Other: Moves easily without hesitation Resp Effort & Inspection: normal respiratory effort GI Other: Epigastric scars from prior mediastinal drains (history of CABG), right lower quadrant scar, nondistended, soft, nontender to palpation x 4 quadrants Assessment and Plan Assessment and Plan (1) Colon cancer: Status: Acute Comment: Patient is an 79-year-old male with history of CAD and PAD who presents for outpatient follow-up of recent occult anemia and workup with colonoscopy that ultimately found evidence of a hepatic flexure mass. 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 CT imaging of the rodolfo st, abdomen, and pelvis was obtained for evaluation of patient's vasculature on intake but did not show any evidence of metastasis. I discussed with patient and spouse plans to proceed with ERAS laparoscopic right hemicolectomy next week. A diagram of the relevant anatomy was made to facilitate understanding. Further, I shared that I held a discussion with anesthesia prior to today's visit and they remain concern for coronary insufficiency and strongly urged me to pursue cardiac evaluation. A special request has been made to the heart group but no definitive plans have been set. Will plan to proceed with scheduling colectomy so things are in place to move forward if we are permitted given that patient does seem to be anemic from this issue. Plan: ? Follow-up request for urgent cardiac evaluation ? Enrollment in ERAS pathway for right hemicolectomy tentatively planned for 04/27/2024. Patient advised on colon prep and preop antibiotics. I have examined the patient the following changes are noted: Patient met with cardiology and they confirmed that patient is appropriate for surgery based on his ischemic workup. Hemoglobin was checked this morning and was found to be stable at 9.4. Patient denies any further symptoms of anemia. Procedure and post procedure expectations?including activity restrictions?were reviewed with patient and his family today. Will now proceed to operating room for planned laparoscopic hemicolectomy for indication hepatic flexure mass.
[2024-04-27] MEDS: Magnesium 2 GM for ERAS IV (07:08)
--- NOTE | 2024-04-27 07:30 | COL._PTH ---
PATIENT: JARED PEREZ LOC: [facility] U#:[id number] AGE/SX: 79/M ROOM: [facility] [place] RE04/27/[address]: Dr. Du Thomas MD : 1945 BED: 1 DIS: 05/01/2024 SPEC #: [id number] RECD: 04/27/24 12:34 STATUS: [facility] #: [id number] MATTHEW: 04/27/24 07:[address]: Du Thomas DEPT: SURGICAL PATHOLOGY RECD BY: Shilpa Lees ENTERED: 04/27/24 14:07 SP TYPE: COLON OTHR DR: MD Tami Vilchis, MEDICAL EDUCATION COORDINATOR-C Tissues: Colon, NOS Procedures: Surgery Specimen Level HEADER OPERATION: Laparoscopic hemicolectomy PRE-OP DIAGNOSIS: Colon cancer TISSUE SUBMITTED: Right colon and terminal ileum MICROSCOPIC DIAGNOSIS Right colon, right hemicolectomy: Invasive poorly differentiated adenocarcinoma. See synoptic report below. AM.mr 05/01/2024 COMMENT COLON CANCER SUMMARY: Specimen - Right colon Procedure - Right hemicolectomy Specimen length - 22.0cms Tumor site - Right colon Tumor size - 4.5 x 2.5 x 1.0cm Macroscopic tumor perforation - Not identified Histologic type - Adenocarcinoma Histologic grade - Grade 3 (poorly differentiated) Histologic features suggestive of Microsatellite Instability: Not identified Microscopic tumor extension - Tumor focally extends to the visceral serosal surface Margins: Proximal margin - free of carcinoma Distal margin - free of carcinoma Treatment effect - unknown Lymph vascular invasion - Present Perineural invasion - Present Tumor deposits - Present, numerous Type of polyp in which invasive carcinoma arose: Unknown Regional lymph nodes- 15 out of 16 lymph nodes, positive for metastatic carcinoma Additional pathologic findings - Acute serositis Ancillary studies: Microsatellite markers study: No MSI detected. See microsatellite instability study by IHC ([id number]) for complete details. Negative (no loss of mismatch protein; no microsatellite instability detected). PATHOLOGIC STAGE: T4 N2b Mx The above summary is in compliance with [employer] [employer] (CAP) Cancer Protocols Checklist and [place] [employer] Committee on Cancer (AJCC), Staging Manual, 8th Ed. Immunohistochemistry ([id number]) supports the above diagnosis. Case has been reviewed in consultation with Dr. Joy who concurs with the above diagnosis. IDC:[id number] MICROSCOPIC DESCRIPTION Slides are reviewed. GROSS DESCRIPTION Received in fixative is one container labeled with the patient's name and designated Right colon and terminal ileum. The specimen consists of a right hemicolectomy specimen consisted of a segmental cecum with ascending colon with attached pericolonic adipose tissue and segmental small intestine. Appendix is not identified. Also present in the container are smaller segments of small intestine with attached mesenteric tissue. Segment of cecum with ascending colon measures 22.0cm in length and segment of small intestine measures 5.0cm in length. Both resection margins are stapled. Lumen contains a small amount of fecal material. An ulcerated, almost circumferential tumor mass is noted 3.5cm away from the ileocecal valve and 15.0cm away from the distal resection margin. The tumor mass measures 4.5 x 2.5 x 1.0cm. No additional mucosa lesion is identified. Smaller segment of small intestine measures 4.0cm in length. Both resection margins are stapled. No mucosal lesion is identified in this piece. Lumen contains a small amount of fecal material. Serosa surface overlying the mass is inked black. Small amount of omentum is also noted. Tumor mass reveals full thickness involvement by the tumor. Pericolonic adipose tissue is fixed in lymph node revealing solution. More dictation will follow after fixation. .mr 04/27/2024 Multiple matted group of lymph nodes are noted in the pericolonic adipose tissue adjacent to the tumor. The largest lymph node measures 1.0cm in greatest dimension. Largest group of lymph node area measures up to 3.0cm in greatest dimension. Nursing Home Physician sections are submitted as follows: 1- detached segment of small intestine, 2- proximal and distal resection margin, 3- ileocecal valve, 4- uninvolved small and large intestine, 5-8- tumor, 9-14- matted group of lymph nodes adjacent to the tumor, 15- multiple lymph node, 16-23- each cassette contains one lymph node, 24- multiple lymph nodes. SJ.mr 04/30/2024 TC:0 [facility]:[id number] ADDENDUM ADDENDUM ADDENDUM ADDENDUM ADDENDUM ADDENDUM ADDENDUM ADDENDUM ADDENDUM ADDENDUM ADDENDUM ADDENDUM ADDENDUM ADDENDUM ADDENDUM ADDENDUM ADDENDUM ADDENDUM ADDENDUM ADDENDUM ADDENDUM ADDENDUM ADDENDUM 07/10/2024 10:42 ADDENDUM 07/10/2024 10:42 ADDENDUM 07/10/2024 10:42 ADDENDUM 07/10/2024 10:42 ADDENDUM 07/10/2024 10:42 [facility] ADVANCED COLORECTAL CANCER NGS REPORT FROM [employer] RESULT SUMMARY: Abnormal TUMOR TYPE: Adenocarcinoma CLINICAL INFORMATION: Right colon hemicolectomy showed poorly differentiated adenocarcinoma (Testing performed on [id number]). HISTOPATHOLOGIC REVIEW: Tumor is present and is estimated to comprise >50% of nuclei in the sample. DETECTED GENOMIC ALTERATIONS: Tier II: Variants of potential clinical significance APC p. ([id number]) TP53 p. ([id number]) IMMUNOTHERAPY BIOMARKERS: TUMOR MUTAITON BURDEN: LOW (7.1 mutation / MB) MICROSATELLITE INSTABILITY: MSI NEGATIVE (6.56%) Please see complete report in e-chart or EMR
[2024-04-27] MEDS: Cefotetan 2 GM in 0.9% Normal Saline (100mL MB+) 100 ML IV (07:50)
[2024-04-27] MEDS: BUPIVACAINE LIPOSOME/PF 20 ML VIAL OPERA.SITE (08:11)
[2024-04-27] MEDS: 0.9% Normal Saline (Pres. free 10 ML Vial ×2 (08:11)
[2024-04-27] MEDS: Bupivacaine 0.25% 30 ML Vial ×2 (08:11)
--- NOTE | 2024-04-27 12:08 | PCM.OPRPT ---
Report of Operation Date of Procedure: 04/27/24 Pre-Operative Diagnosis: Colon cancer Post-Operative Diagnosis: Colon cancer of the ascending colon Surgery/Procedure Performed:: Laparoscopic right hemicolectomy Description of Surgical Findings:: ? Numerous thin adhesions between patient's omentum and her right colon/right mesocolon ? Readily discoverable endoscopically?placed to in the ascending colonic segment ? No surface nodularity of the liver for the visible right lobe Surgeon: Du Thomas sausage linker: Miranda Perez Type of Anesthesia: General/Supplemental Anesthesiologist: Steven Ann Specimen's removed: Right colon Drains: None Estimated Blood Loss (mL): 30 Description of Procedure: Operation performed for curative intent: Yes Tumor location: Ascending colon Extent of colon and vascular resection: Right hemicolectomy with sacrifice of the ileocolic pedicle and the right branch of the middle colic artery. After appropriate identification in the preoperative holding area the patient was brought to the operating room where he was positioned supine in the operating room table. There he underwent induction of general anesthesia. He was administered preoperative antibiotics. A Antonio catheter was then placed for accurate ins and outs monitoring. Anesthesia placed a orogastric tube for gastric decompression. A formal timeout was conducted to confirm patient and procedure and the procedure was begun with a Shaw entry in the supraumbilical position and placement of a 12 mm balloon trocar. Pneumoperitoneum was established at 15 mmHg and an inspection of the peritoneum was made. There was no evidence of inadvertent injury to the viscera below from our entry. Inspection of the liver did not reveal any mass lesions that could be concerning for metastatic deposits. With this initial investigation, I was not able to immediately visualize the patient's tattooed colonic mass so I elected to proceed with additional port placements and placed 5 mm trocars in the suprapubic and left lower quadrant positions. However, before proceeding with this port placement I performed a bilateral TAP block using a solution of Exparel, bupivacaine, and saline to instill 70 mL and evenly measured aliquots under laparoscopic direction. There were a number of adhesions between the patient's omentum and the anterior abdominal wall inferiorly which had to be taken down before the patient's suprapubic port could be placed. With the [address] as described, the patient was placed with reverse Trendelenburg positioning and I was able to visualize a tattoo in the ascending colon. With this target identified, I began to mobilize the colon and a lateral to medial fashion by opening the peritoneal reflection along the right paracolic gutter using the laparoscopic LigaSure device. In doing so we entered the avascular plane between the colon and the retroperitoneum/atop Gerota's fascia inferiorly. I continued this mobilization until we reached the liver. At this point I found numerous adhesions between the patient's omentum and the right mesocolon/right colon serosal surface. This was potentially due to extravasation of the tattoo ink causing an inflammatory process as it was in this vicinity where adhesions appeared densest. These adhesions were carefully taken down and the areas of translucent planes the structures after I carefully confirmed that the mesocolon was not being divided. Ultimately I was able to create enough separation to begin taking down the hepatic flexure and a lateral to medial orientation. Patient then was repositioned in Trendelenburg positioning where I also encountered numerous adhesions from patient's prior appendectomy as I performed mobilization of the terminal ileum. During this process I took great care to avoid any injuries to the deeper structures as I first identified the course of the right ureter and the right common iliac vessel. From this newly released small bowel we continued this cephalad with our prior dissection and the right colon was from the retroperitoneum deeply back to the anterior surface of the duodenal sweep which was visualized. I then checked overall mobility of the right colon and found it easily reached to our supraumbilical port site. On reaching this observation, I made the decision to extracorporealize the right colon via a limited midline incision that was made by connecting patient's supraumbilical incision and epigastric port site incision. A medium size Jd wound protector was placed and our specimen was delivered through this opening with ease. I then determined our proximal and distal transection points and divided the small bowel mesentery and mesocolon, respectively, to these points. A 75 mm VALERIE stapler was used to make these transections. I then sought the ileocolic vessel with palpation of its pulse lesion. This vessel was skeletonized and clamped proximally and I applied a Hem-o-thong clip across the vessel. I then further secured it by performing a stick tie of the vessel using 2-0 silk as a ligature. The specimen was passed off the field for pathologic processing. I then aligned the remaining ileum and transverse colon-taking care to remove some intervening pericolonic fat from the tinea. As I examined the proximal small bowel I found a significant rent in the small bowel mesentery and evidence of mild ischemia. Not wanting to incur any additional risk with this reconnection I elected to remove an additional segment of ileum estimated at approximately 8 to 10 cm in length using a additional firing of the VALERIE stapler. Then the small bowel and colon were aligned (confirming flatness of their respective mesentery's) and a [id number], functional end stapled ileocolonic anastomosis was then produced with a third firing of our VALERIE stapler. The common channel was reoriented perpendicularly to our original staple lines and was closed with a TX 60 mm stapler. The staple line was hemostatic, but for added security a 3-0 silk stitch was used to dunk the staple line in a Lembert fashion. The mesenteric defect between the colon and small bowel was closed with a running 3-0 Vicryl. A crotch stitch was placed with a 3-0 silk stitch. Satisfied with our anastomosis the bowel was returned to the peritoneum. I then irrigated the abdomen with warm sterile saline and suctioned the effluent free. There were no signs of bleeding with this intervention. I performed a brief inspection of the liver as well as palpated it for any evidence of metastatic lesions. A malunion of a prior rib fracture precluded ease of inspection but I was able to evaluate the surface of the liver with placement of her laparoscope. Although I found something palpable within the liver parenchyma nothing was visible at the surface so I did not undertake a biopsy and chose to leave this to a postoperative timeframe. I thus removed the wound protector and began closure of the abdomen. The specimen extraction site was closed with #1 PDS in a bidirectional fashion from the corners and tying in the middle. The subcutaneous layer was irrigated above the fascia and the skin was closed with a running 4-0 Monocryl. The remaining 5 mm port sites were also closed in a subcuticular fashion with 4-0 Monocryl. Dressings were applied and the Antonio catheter was removed. Patient was awoken from general anesthetic without complication. He was taken to PACU for ongoing recovery. Admit VTE Documentation VTE Mechan Device Prophylaxis: SCD's
[2024-04-27 12:11] LABS: Bedside Glucose 113 mg/dL (74-106)
--- NOTE | 2024-04-27 12:20 | PCM.POST.ANE ---
Anesthesia: Postop Eval I Current Vital Signs Temperature: 97.1 F Pulse Rate: 64 Blood Pressure: 154/61 Respiratory Rate: 16 Pulse Ox: 100 Oxygen Delivery Method: Simple Mask Oxygen Flow Rate (L/min): 6 Assessment Airway patent: Yes Spontaneous unlabored respirations: Yes Mental status: Asleep nausea: No Vomiting: No Anesthesia Complication: No Fluid Hydration Crystalloid volume administer (ml): 1,500 Total IV fluid infused: 1,500 Progress Note Anesthesia document: Postop Eval 1 completed: Yes
--- NOTE | 2024-04-27 12:39 | POSTOPAN2_ITS ---
Anesthesia Postop Eval I Sum Postop Eval Completion status Anesthesia document: Postop Eval 1 completed: Yes Anesthesia Postop Eval I Summary Anesthesia Postop Eval I Summary: Anesthesia Postop Eval I: Assessment Summary Airway patent Yes 04/27/24 12:21 PRODUCT SAFETY ADMINISTRATOR.[email or web address] Spontaneous unlabored Yes 04/27/24 12:21 PRODUCT SAFETY ADMINISTRATOR.[email or web address] respirations Mental status Asleep 04/27/24 12:21 PRODUCT SAFETY ADMINISTRATOR.FITOOBSangita nausea No 04/27/24 12:21 PRODUCT SAFETY ADMINISTRATOR.FITOOBSangita Vomiting No 04/27/24 12:21 PRODUCT SAFETY ADMINISTRATOR.ANNIA Anesthesia Postop Eval I: Fluid Summary Crystalloid volume administer 1,500 04/27/24 12:21 PRODUCT SAFETY ADMINISTRATOR.FITOOBY (ml) Colloids volume administered ( ml) Blood Product volume administered (ml) Total IV fluid infused 1,500 04/27/24 12:21 PRODUCT SAFETY ADMINISTRATOR.ANNIA Anesthesia Postop Eval I: Summary Notes Anesthesia Complication No 04/27/24 12:21 PRODUCT SAFETY ADMINISTRATOR.ANNIA Anesthesia Complication Comment: Post-operative progress note Anesthesia: Postop Eval II Evaluation Mental status: Awake Pain Level: 0 nausea: No Vomiting: No
--- NOTE | 2024-04-27 12:39 | PCM.POSTANE2 ---
Anesthesia Postop Eval I Sum Postop Eval Completion status Anesthesia document: Postop Eval 1 completed: Yes Anesthesia Postop Eval I Summary Anesthesia Postop Eval I Summary: Anesthesia Postop Eval I: Assessment Summary Airway patent Yes 04/27/24 12:21 STORM WINDOW [email or web address].[email or web address] Spontaneous unlabored Yes 04/27/24 12:21 STORM WINDOW INSTALLER.ANNIA respirations Mental status Asleep 04/27/24 12:21 STORM WINDOW INSTALLER.FITOOBSangita nausea No 04/27/24 12:21 STORM WINDOW INSTALLER.FITOOBSangita Vomiting No 04/27/24 12:21 STORM WINDOW INSTALLER.ANNIA Anesthesia Postop Eval I: Fluid Summary Crystalloid volume administer 1,500 04/27/24 12:21 STORM WINDOW INSTALLER.FITOOBY (ml) Colloids volume administered ( ml) Blood Product volume administered (ml) Total IV fluid infused 1,500 04/27/24 12:21 STORM WINDOW INSTALLER.ANNIA Anesthesia Postop Eval I: Summary Notes Anesthesia Complication No 04/27/24 12:21 STORM WINDOW INSTALLER.ANNIA Anesthesia Complication Comment: Post-operative progress note Anesthesia: Postop Eval II Evaluation Mental status: Awake Pain Level: 0 nausea: No Vomiting: No
[2024-04-27] MEDS: Glycerin/Hypromellose/PEG400 15 ml Bottle 1 DRP EACH EYE (17:52)
[2024-04-27] MEDS: amLODIPine 5 MG Tablet PO (21:04)
[2024-04-28] VITALS (7 sets, daily range): BP systolic 121–173; BP diastolic 43–69; PULSE 66–78; RESP 16–19; TEMP 36.6–37.1; O2SAT 96–99
[2024-04-28 06:08] LABS: Hematocrit 26.3 % (40-54); Hemoglobin 8.1 g/dL (13.0-16.5); Mean Corp Hgb Conc 30.8 g/dL (32-36); Mean Corpuscular Hgb 26.1 pg (27.0-32.0); Mean Corpuscular Volume 84.8 fL (80-94); Mean Platelet Vol. 10.2 fl (6.2-12.0); Platelet Count 296 K/mm3 (150-450); RBC Distribution Width SD 43.3 fl (35.1-43.9); White Blood Count 9.1 K/mm3 (4.4-11.0)
[2024-04-28 06:34] LABS: Anion Gap 4 (5-15); BUN 18 mg/dL (7-18); BUN/Creat Ratio 13.7 RATIO (10-20); Calcium,Total 8.2 mg/dL (8.5-10.1); Chloride 101 mmol/L (98-107); Creatinine, Serum 1.31 mg/dL (0.70-1.30); EST Glomerular Filtration Rate 56 mL/min (>60); Est Glom Filt Rate - Afr Amer 68 mL/min (>60); Estimated Creatinine Clearance 42.05 ml/min; Glucose 130 mg/dL (74-106); Potassium 4.4 mmol/L (3.5-5.1); Sodium Level 131 mmol/L (136-145)
[2024-04-28] MEDS: Ensure Plus High Protein 120 ML LIQUID PO (08:18)
[2024-04-28] MEDS: Docusate Sodium 100 MG Capsule PO ×2 (08:19→17:32)
[2024-04-28] MEDS: amLODIPine 5 MG Tablet PO ×2 (08:20→17:31)
--- NOTE | 2024-04-28 12:41 | NURSING ---
This RN offered pt to chew gum since pt is not passing flatus, pt refused. This RN also encouraged pt to walk halls more frequently and offered to do so right now. Pt is willing to walk right now in the [place] with this RN but has an excuse for why he refuses to do anything else. Pt refused scheduled tylenol at this time.
--- NOTE | 2024-04-28 13:32 | CASEMGMT ---
JENNIFER BOLTON Assessment: Face to Face with pt for initial transition planning/care coordination assessment. RN HOANG introduced self and role at [facility], pt voices understanding and consents to assessment. Pt is A&O x4 and answers all questions appropriately at this time. Pt standing up in room, sitting in chair at bedside. Pt agreeable to discussing plan of care with present. Care providers, pharmacy, and demographics verified/updated. Strata: 2 Admitting Dx: R Cesar colectomy. PCP: Shahram Specialists: Denies Preferred Pharmacy: [facility] Insurance: [facility] Prescription Benefit: yes LNOK: Living Arrangements: Pt lives with in a mobile home with zero steps to enter. ADLs: Pt states I with ADLs and IADLS. Transportation: Pt drives self and denies concerns with transportation. DME: Denies HHC/SNF: Pt denies Hx of. Pt states no concerns with going home at time of dc. Pt states no further concerns/needs. CM to follow. Advised pt to ask CM if any further question/concerns/needs arise, voices understanding. Pt Goal: Home Plan: Home, follow plan of care. Alix RODRIGUEZ CM
--- NOTE | 2024-04-28 15:57 | PN.SURG_ITS ---
Subjective Subjective Patient seen and examined during AM rounds and revisited in the afternoon. He shares that he is doing quite well with minimal postoperative pain. He initially denied any bowel function, however, upon revisitation he did share about a small volume liquid bowel movement with a dark character. He denies any regular flatus. He denies any nausea and expresses an appetite. Objective Data Objective Data Vital Signs: Vital Signs Temp Pulse Resp BP Pulse Ox O2 Del Method O2 Flow Rate 98.0 F 78 18 169/63 H 97 Room Air 4 04/28/24 14:00 04/28/24 14:00 04/28/24 14:00 04/28/24 14:00 04/28/24 14:00 04/28/24 14:00 04/27/24 14:00 Oxygen Flow Rate (L/min) 4 Oxygen Delivery Method Room Air Weight: 174 lb 9.698 oz Body Mass Index (BMI) 27.3 Intake & Output: Intake and Output for Last 24 Hours 04/26/24 04/27/24 04/28/24 23:59 23:59 23:59 Intake Total 1812 / 1812 1659.33 / 1659.33 Output Total 1200 / 1200 1700 / 1700 Balance 612 / 612 -40.67 / -40.67 Lab / Micro Data 04/28/24 05:10 04/28/24 05:10 Labs: Laboratory Results - last 24 hr 04/28/24 05:10: WBC 9.1, RBC 3.10 L, Hgb 8.1 L, Hct 26.3 L, MCV 84.8, MCH 26.1 L , MCHC 30.8 L, RDW Std Deviation 43.3, RDW Coeff of Deepika 14.0, Plt Count 296, MPV 10.2, Sodium 131 L, Potassium 4.4, Chloride 101, Carbon Dioxide 26.0, Anion Gap 4 L, BUN 18, Creatinine 1.31 H, Estim Creat Clear Calc 42.05, Est GFR (MDRD) Af Amer 68, Est GFR (MDRD) Non-Af 56 L, BUN/Creatinine Ratio 13.7, Glucose 130 H, C alcium 8.2 L Physical Exam Const oriented x3 and no apparent distress Resp normal respiratory effort GI GI Narrative: Operative dressings intact, mild ecchymosis about incision sites, minimally tender to palpation. Notable distention?particularly in the a.m. with some improvement in the afternoon. Assessment & Plan Assessment/Plan (1) Colon cancer: PLAN: Patient 79-year-old male postoperative day 1 from laparoscopic right hemicolectomy for ascending colon cancer. He is enrolled in the ERAS pathway and overall doing well. He has minimal discomfort but he did have some abdominal distention that was worse on exam in the a.m. He showed some signs of return of bowel function with a small volume BM that was not witnessed by nursing. He continues to confirm an appetite and denied nausea. With his return of bowel function remaining somewhat tentative I have agreed to advance him to full liquids but recommend we hold at this diet threshold until he has more definitive evidence of complete return of bowel function. Patient is in agreement. He has been ambulating and is urged to continue. Lastly hemoglobin down trended slightly postop but I suspect this is just settling out after his operation as there are no signs of ongoing blood loss. Will test again tomorrow. Du Thomas MD General Surgery Endocrine Surgery Pager: [facility] [address] [place] [address], [address] [place] [address] Office: [phone] Charges/Coding Visit Charges Inpatient E&M: 89646 [facility] Hosp L2
[2024-04-28] MEDS: Metoprolol Tartrate 25 MG Tablet PO (17:31)
[2024-04-29] MEDS: 0.9% Saline Lock 10 ML Syringe IV (03:55)
[2024-04-29 04:00] VITALS: BP 158/75; PULSE 69; RESP 16; TEMP 36.9; O2SAT 97
[2024-04-29 05:57] LABS: Absolute Neutrophil Count 6.7 X10^3/uL (2.0-7.7); Basophil# 0.01 X10^3/uL; Basophil% 0.1 % (0-1); Eosinophil# 0.03 X10^3/uL; Eosinophils% 0.3 % (0-5); Hematocrit 27.6 % (40-54); Hemoglobin 8.6 g/dL (13.0-16.5); Lymphocyte % 17.1 % (19-41); Mean Corp Hgb Conc 31.2 g/dL (32-36); Mean Corpuscular Hgb 26.2 pg (27.0-32.0); Mean Corpuscular Volume 84.1 fL (80-94); Mean Platelet Vol. 9.8 fl (6.2-12.0); Monocyte# 0.94 X10^3/uL; NRBC Flagged by Analyzer 0 % (0-5); Neutrophil # 6.74 X10^3/uL (2.7-7.7); Platelet Count 345 K/mm3 (150-450); RBC Distribution Width SD 42.7 fl (35.1-43.9); Red Blood Count 3.28 M/mm3 (4.6-6.2); White Blood Count 9.4 K/mm3 (4.4-11.0)
[2024-04-29 06:23] LABS: Anion Gap 6 (5-15); BUN 14 mg/dL (7-18); Calcium,Total 9.1 mg/dL (8.5-10.1); Chloride 101 mmol/L (98-107); Creatinine, Serum 1.08 mg/dL (0.70-1.30); EST Glomerular Filtration Rate 70 mL/min (>60); Est Glom Filt Rate - Afr Amer 85 mL/min (>60); Glucose 109 mg/dL (74-106); Potassium 4.1 mmol/L (3.5-5.1); Sodium Level 133 mmol/L (136-145)
--- NOTE | 2024-04-29 08:17 | PCM.PN.SRG ---
Subjective Subjective Patient seen and examined during AM rounds. He is found resting in bed. He shares that he has been experiencing gas pains with only modest relief. He declares this has been a chronic problem for him and that expunged in this gas tends to require a complicated regimen?including ingestion of a large volume of liquid. He shares that he tried drinking some Sprite and following this with some additional liquid yesterday which produced lots of burping and provided some relief. He denies any flatus. He denies any further bowel movements. He states that he is taking about 75% of his trays but becomes full and feels like the next tray is coming before he has had time to finish the first. He confirms that he is still walking. Objective Data Objective Data Vital Signs: Vital Signs Temp Pulse Resp BP Pulse Ox O2 Del Method O2 Flow Rate 98.4 F 69 16 158/75 H 97 Room Air 4 04/29/24 04:00 04/29/24 04:00 04/29/24 04:00 04/29/24 04:00 04/29/24 04:00 04/29/24 04:00 04/27/24 14:00 Oxygen Flow Rate (L/min) 4 Oxygen Delivery Method Room Air Weight: 174 lb 9.698 oz Body Mass Index (BMI) 27.3 Intake & Output: Intake and Output for Last 24 Hours 04/27/24 04/28/24 04/29/24 23:59 23:59 23:59 Intake Total 1812 / 1812 2309.33 / 2309.33 500 / 500 Output Total 1200 / 1200 2500 / 2500 Balance 612 / 612 -190.67 / -190.67 500 / 500 Lab / Micro Data 04/29/24 05:04 04/29/24 05:04 Labs: Laboratory Results - last 24 hr 04/29/24 05:04: WBC 9.4, RBC 3.28 L, Hgb 8.6 L, Hct 27.6 L, MCV 84.1, MCH 26.2 L, MCHC 31.2 L, RDW Std Deviation 42.7, RDW Coeff of Deepika 14.0, Plt Count 345, MPV 9.8, Immature Gran % (Auto) 0.500, Neut % (Auto) 72.0 H, Lymph % (Auto) 17.1 L, [place] % (Auto) 10.0, Eos % (Auto) 0.3, Baso % (Auto) 0.1, Absolute Neuts (auto) 6.7, Absolute Lymphs (auto) 1.60, Nucleated RBC % 0, Sodium 133 L, Potassium 4.1, Chloride 101, Carbon Dioxide 26.0, Anion Gap 6, BUN 14, Creatinine 1.08, Estim Creat Clear Calc 51.00, Est GFR (MDRD) Af Amer 85, Est GFR (MDRD) Non-Af 70, BUN/Creatinine Ratio 13.0, Glucose 109 H, Calcium 9.1 Physical Exam Const oriented x3 Constitutional Narrative: Mild distress apparent from gas pains Resp normal respiratory effort GI GI Narrative: Stable abdominal distention with no significant tenderness on palpation. Evidence of ecchymosis around left lateral port site and possible subcutaneous hematoma is stable. Operative dressings are taken down and wounds remain well-approximated without other erythema or drainage. Assessment & Plan Assessment/Plan (1) Colon cancer: (2) S/P right hemicolectomy: (3) Anemia: PLAN: Plan Patient 79-year-old male postoperative day 2 from laparoscopic right hemicolectomy for ascending colon cancer. He is enrolled in the ERAS pathway and overall doing well. He is describing more discomfort this morning which she attributes to gas pains. His abdominal distention remains stable but he reports burping and minimal flatus. He denies any further bowel movements after the small-volume liquid bowel movement he reported yesterday. He does not seem to have the appetite he described yesterday. With all of the above I suspect he is experiencing a bit of a postoperative ileus. I have counseled him about this diagnosis today and encouraged him to report any increased fullness, belching, hiccuping, or other discomfort to nursing and we will back down on his diet and reinstitute IV fluids. At this point his urine output has been adequate and his intake remains adequate. Patient is in agreement. He has been ambulating and is urged to continue. Lastly hemoglobin appears stable from yesterday. Therefore, with patient's hypercoagulability related to surgery and concurrent cancer diagnosis I will begin DVT prophylaxis with subcu Lovenox. Du Thomas MD General Surgery Endocrine Surgery Pager: [facility] [address] [place] [address], [facility], [address] [place] [address] Office: [phone] Charges/Coding Visit Charges Inpatient E&M: 58674 Subs Hosp L2
[2024-04-29] MEDS: Docusate Sodium 100 MG Capsule PO (09:06)
[2024-04-29] MEDS: amLODIPine 5 MG Tablet PO (09:07)
[2024-04-29 09:10] VITALS: PULSE 80
[2024-04-29] MEDS: Metoprolol Tartrate 25 MG Tablet PO (09:10)
[2024-04-29 09:12] VITALS: BP 168/75; PULSE 80; RESP 18; TEMP 36.5; O2SAT 96
[2024-04-29] MEDS: Enoxaparin 40 MG/0.4 ML Syringe SC (11:51)
[2024-04-29 17:10] VITALS: BP 151/76; PULSE 74; RESP 19; TEMP 36.3; O2SAT 99
[2024-04-29 22:33] VITALS: BP 157/80; PULSE 73; RESP 16; TEMP 37.3; O2SAT 97
[2024-04-30 04:17] VITALS: BP 160/71; PULSE 78; RESP 16; TEMP 36.9; O2SAT 94
[2024-04-30 06:54] LABS: Absolute Lymphocyte Count 1.45 X10^3/uL (0.83-4.51); Absolute Neutrophil Count 5.7 X10^3/uL (2.0-7.7); Basophil# 0.01 X10^3/uL; Basophil% 0.1 % (0-1); Eosinophil# 0.11 X10^3/uL; Eosinophils% 1.3 % (0-5); Hematocrit 28.7 % (40-54); Hemoglobin 9.1 g/dL (13.0-16.5); Lymphocyte # 1.45 X10^3/ul (0.83-4.51); Lymphocyte % 17.6 % (19-41); Mean Corp Hgb Conc 31.7 g/dL (32-36); Mean Platelet Vol. 9.7 fl (6.2-12.0); Monocyte# 0.97 X10^3/uL; Monocyte% 11.8 % (0-10); NRBC Flagged by Analyzer 0 % (0-5); Neutrophil # 5.65 X10^3/uL (2.7-7.7); Neutrophil % 68.6 % (47-70); Platelet Count 360 K/mm3 (150-450); RBC Distribution Width SD 41.8 fl (35.1-43.9); White Blood Count 8.2 K/mm3 (4.4-11.0)
[2024-04-30 07:17] LABS: Anion Gap 9 (5-15); BUN 17 mg/dL (7-18); BUN/Creat Ratio 15.6 RATIO (10-20); Chloride 101 mmol/L (98-107); Creatinine, Serum 1.09 mg/dL (0.70-1.30); EST Glomerular Filtration Rate 69 mL/min (>60); Est Glom Filt Rate - Afr Amer 84 mL/min (>60); Estimated Creatinine Clearance 50.54 ml/min; Glucose 104 mg/dL (74-106); Sodium Level 134 mmol/L (136-145)
[2024-04-30 08:03] VITALS: BP 145/72; PULSE 80; RESP 18; TEMP 37.1; O2SAT 98
--- NOTE | 2024-04-30 08:13 | PN.SURG_ITS ---
Subjective Subjective Patient seen and examined during AM rounds. He reported signs of additional bowel function. He shared that he is experiencing some incisional pain but has been active walking. He stated he got too busy with visitors last evening that he was unable to complete a shower as planned. At this point he confesses that he does not have much of an appetite still. Objective Data Objective Data Vital Signs: Vital Signs Temp Pulse Resp BP Pulse Ox O2 Del Method O2 Flow Rate 98.7 F 80 18 145/72 H 98 Room Air 4 04/30/24 08:03 04/30/24 08:03 04/30/24 08:03 04/30/24 08:03 04/30/24 08:03 04/30/24 08:03 04/27/24 14:00 Oxygen Flow Rate (L/min) 4 Oxygen Delivery Method Room Air Weight: 174 lb 9.698 oz Body Mass Index (BMI) 27.3 Intake & Output: Intake and Output for Last 24 Hours 04/28/24 04/29/24 04/30/24 23:59 23:59 23:59 Intake Total 2309.33 / 2309.33 1420 / 1420 Output Total 2500 / 2500 850 / 850 Balance -190.67 / -190.67 570 / 570 Lab / Micro Data 04/30/24 06:05 04/30/24 06:05 Labs: Laboratory Results - last 24 hr 04/30/24 06:05: WBC 8.2, RBC 3.50 L, Hgb 9.1 L, Hct 28.7 L, MCV 82.0, MCH 26.0 L , MCHC 31.7 L, RDW Std Deviation 41.8, RDW Coeff of Deepika 14.0, Plt Count 360, MPV 9.7, Immature Gran % (Auto) 0.600, Neut % (Auto) 68.6, Lymph % (Auto) 17.6 L, M laurent % (Auto) 11.8 H, Eos % (Auto) 1.3, Baso % (Auto) 0.1, Absolute Neuts (auto) 5.7, Absolute Lymphs (auto) 1.45, Nucleated RBC % 0, Sodium 134 L, Potassium 4.0, Chloride 101, Carbon Dioxide 24.0, Anion Gap 9, BUN 17, Creatinine 1.09, Estim Creat Clear Calc 50.54, Est GFR (MDRD) Af Amer 84, Est GFR (MDRD) Non-Af 69, BUN/Creatinine Ratio 15.6, Glucose 104, Calcium 9.0 Physical Exam Const oriented x3 and no apparent distress Resp normal respiratory effort GI GI Narrative: Significant ecchymosis spreading laterally from patient's 5 mm lateral port site incision. There is no fullness or tenderness with palpation of this area patient's incisions remain covered with Steri-Strips. There is no erythema or drainage. Patient describes minimal tenderness with palpation of the right upper quadrant. Distention is improved. Assessment & Plan Assessment/Plan (1) Colon cancer: (2) S/P right hemicolectomy: (3) Anemia: PLAN: Plan Patient 79-year-old male postoperative day 3 from laparoscopic right hemicolectomy for ascending colon cancer. He is enrolled in the ERAS pathway and overall doing well. Mr. Raymond is experiencing more regular flatus and bowel function. Despite this the continues to deny a strong appetite. He also talks about periodic bloating which he insists is consistent with his baseline. With these reports I was reluctant to advance his diet but he reported ongoing bowel activity as he was revisited in the afternoon. Therefore we will plan to advance to transitional diet and monitor for tolerance. Patient is in agreement. He continues ambulating frequently. Lastly hemoglobin appears to be climbing with his improve nutrition and the fact that he is no longer experiencing losses?thus will continue DVT prophylaxis with subcu Lovenox. Disposition: Possible discharge anticipated for tomorrow pending clinical progress Du Thomas MD General Surgery Endocrine Surgery Pager: [facility] [address] [place] [address], [facility], [address] [place] [address] Office: [phone] Charges/Coding Visit Charges Inpatient E&M: 86029 Subs Hosp L2
[2024-04-30 10:00] VITALS: RESP 18
[2024-04-30] MEDS: Ensure Plus High Protein 120 ML LIQUID PO (11:01)
[2024-04-30] MEDS: Docusate Sodium 100 MG Capsule PO ×2 (11:02→22:03)
[2024-04-30 14:32] VITALS: BP 167/70; PULSE 87; RESP 18; TEMP 36.8; O2SAT 98
[2024-04-30] MEDS: Tamsulosin HCl 0.4 MG Capsule PO (17:35)
[2024-04-30] MEDS: Acetaminophen 500 MG Tablet 1000 MG PO (17:36)
[2024-04-30 21:00] VITALS: BP 152/69; PULSE 76; RESP 16; TEMP 37.1; O2SAT 99
[2024-04-30 22:03] VITALS: BP 152/69; PULSE 76
[2024-04-30] MEDS: Metoprolol Tartrate 25 MG Tablet PO (22:03)
[2024-04-30] MEDS: amLODIPine 5 MG Tablet PO (22:04)
[2024-05-01] MEDS: Acetaminophen 500 MG Tablet 1000 MG PO ×2 (00:05→13:12)
[2024-05-01 03:00] VITALS: BP 187/75; PULSE 79; RESP 16; TEMP 36.4; O2SAT 100
[2024-05-01 07:54] LABS: Absolute Lymphocyte Count 1.58 X10^3/uL (0.83-4.51); Absolute Neutrophil Count 6.7 X10^3/uL (2.0-7.7); Basophil# 0.03 X10^3/uL; Basophil% 0.3 % (0-1); Eosinophil# 0.29 X10^3/uL; Hematocrit 30.5 % (40-54); Hemoglobin 9.5 g/dL (13.0-16.5); Lymphocyte # 1.58 X10^3/ul (0.83-4.51); Lymphocyte % 16.4 % (19-41); Mean Corp Hgb Conc 31.1 g/dL (32-36); Mean Corpuscular Hgb 25.7 pg (27.0-32.0); Mean Corpuscular Volume 82.4 fL (80-94); Mean Platelet Vol. 9.7 fl (6.2-12.0); Monocyte# 0.94 X10^3/uL; Monocyte% 9.7 % (0-10); NRBC Flagged by Analyzer 0 % (0-5); Neutrophil # 6.73 X10^3/uL (2.7-7.7); Neutrophil % 69.8 % (47-70); Platelet Count 440 K/mm3 (150-450); RBC Distribution Width CV 14.2 % (11.6-14.6); RBC Distribution Width SD 42.2 fl (35.1-43.9); White Blood Count 9.7 K/mm3 (4.4-11.0)
[2024-05-01 08:28] LABS: Anion Gap 9 (5-15); BUN 21 mg/dL (7-18); BUN/Creat Ratio 16.2 RATIO (10-20); Calcium,Total 9.3 mg/dL (8.5-10.1); Chloride 96 mmol/L (98-107); EST Glomerular Filtration Rate 56 mL/min (>60); Est Glom Filt Rate - Afr Amer 68 mL/min (>60); Estimated Creatinine Clearance 42.37 ml/min; Glucose 111 mg/dL (74-106); Potassium 4.2 mmol/L (3.5-5.1); Sodium Level 128 mmol/L (136-145)
--- NOTE | 2024-05-01 08:31 | PCM.PN.SRG ---
Subjective Subjective Patient evaluated resting comfortably in bed. He notes a little reflux this morning. He denies nausea, vomiting. He denies abdominal pain/discomfort. he notes passing very little flatus. He has not had another bowel movement since yesterday. He notes having a little blood within his stool at his last bowel movement. Patient voices readiness for transitional diet. He voices that he would like to have another bowel movement prior to being discharged. Objective Data Objective Data Vital Signs: Vital Signs Temp Pulse Resp BP Pulse Ox O2 Del Method O2 Flow Rate 97.5 F L 79 16 187/75 H 100 Room Air 4 05/01/24 03:00 05/01/24 03:00 05/01/24 03:00 05/01/24 03:00 05/01/24 03:00 05/01/24 03:00 04/27/24 14:00 Oxygen Flow Rate (L/min) 4 Oxygen Delivery Method Room Air Weight: 174 lb 9.698 oz Body Mass Index (BMI) 27.3 Intake & Output: Intake and Output for Last 24 Hours 04/29/24 04/30/24 05/01/24 23:59 23:59 23:59 Intake Total 1420 / 1420 850 / 850 Output Total 850 / 850 Balance 570 / 570 850 / 850 Lab / Micro Data 05/01/24 07:29 05/01/24 07:29 Labs: Laboratory Results - last 24 hr 05/01/24 07:29: WBC 9.7, RBC 3.70 L, Hgb 9.5 L, Hct 30.5 L, MCV 82.4, MCH 25.7 L, MCHC 31.1 L, RDW Std Deviation 42.2, RDW Coeff of Deepika 14.2, Plt Count 440, MPV 9.7, Immature Gran % (Auto) 0.800, Neut % (Auto) 69.8, Lymph % (Auto) 16.4 L, [place] % (Auto) 9.7, Eos % (Auto) 3.0, Baso % (Auto) 0.3, Absolute Neuts (auto) 6.7, Absolute Lymphs (auto) 1.58, Nucleated RBC % 0, Sodium 128 L, Potassium 4.2, Chloride 96 L, Carbon Dioxide 24.0, Anion Gap 9, BUN 21 H, Creatinine 1.30, Estim Creat Clear Calc 42.37, Est GFR (MDRD) Af Amer 68, Est GFR (MDRD) Non-Af 56 L, BUN/Creatinine Ratio 16.2, Glucose 111 H, Calcium 9.3 Physical Exam GI GI Narrative: Abdomen- significant ecchymosis left lower quadrant. Incisions c/d/i. No erythema or infection noted. Steri-strips intact. Assessment & Plan Assessment/Plan (1) Anemia: (2) S/P right hemicolectomy: (3) Colon cancer: PLAN: Plan I am following this patient in conjunction with Dr. Thomas. He has independently evaluated this patient. Continue with transitional diet Start Reglan as needed Start probiotic to assist with history of constipation Continue ambulation Hopeful discharge later today pending bowel movement Charges/Coding Visit Charges Inpatient E&M: 91397 [facility] Hosp L1 (no charge; post-op)
[2024-05-01 09:00] VITALS: BP 140/70; PULSE 71; RESP 18; TEMP 36.4; O2SAT 100
--- NOTE | 2024-05-01 09:11 | PCM.DC.SUM ---
Providers Date of Admission: 04/27/24 Primary Care Physician: MARYAM Guerra Reason For Visit: Laparoscopic,right Cesar Colectomy-E Diagnosis Discharge Diagnosis (1) Anemia: Status: Acute Code(s): D64.9 - Anemia, unspecified (2) S/P right hemicolectomy: Status: Acute Code(s): Z90.49 - Acquired absence of other specified parts of digestive tract (3) Colon cancer: Status: Acute Code(s): C18.9 - Malignant neoplasm of colon, unspecified Plan I am following this patient in conjunction with Dr. Thomas. He has independently evaluated this patient. Continue with transitional diet Start Reglan as needed Start probiotic to assist with history of constipation Continue ambulation Hopeful discharge later today pending bowel movement Medications at Discharge Home Medications amlodipine 5 mg tablet 5 mg PO BID HEART #60 tabs 04/25/24 metoprolol tartrate 25 mg tablet 25 mg PO BID BP #60 tabs 04/25/24 acetaminophen 500 mg tablet 650 mg (1.3 x 500 mg) PO Q6 PRN pain #0 tabs 05/01/24 enoxaparin 40 mg/0.4 mL subcutaneous syringe 40 mg (0.4 mL) subcut DAILY 7 days #2.8 mL 05/01/24 sodium chloride 1,000 mg soluble tablet 1,000 mg PO BID 7 days #14 tabs 05/01/24 Hospital Course Operations colectomy (Laparoscopic right hemicolectomy) Summary of Care Provided Minutes Spent on Discharge: 30 Hospital Course: Patient is an 79 y/o M who presented for an elective laparoscopic right hemicolectomy by Dr. Thomas for [facility]. Dr. Thomas performed a laparoscopic right hemicolectomy on 04/27/24. Patient tolerated the procedure well. Patient had an uneventful hospitalization. Upon discharge, patient denies nausea, vomiting, fever. He notes having another bowel movement the day of discharge. He tolerated the transitional diet. Plan to send patient home on Sodium tablets as his sodium level was low for 7 days. Plan to send patient home on Lovenox x 7 days. Patient to follow-up with Dr. Thomas in 7-10 days. Weight / BMI Weight Weight: 174 lb 9.698 oz Body Mass Index (BMI) 27.3 ABG / Lab / Microbiology Data 05/01/24 07:29 05/01/24 07:29 Laboratory: Laboratory Results - last 24 hr 05/01/24 07:29: WBC 9.7, RBC 3.70 L, Hgb 9.5 L, Hct 30.5 L, MCV 82.4, MCH 25.7 L, MCHC 31.1 L, RDW Std Deviation 42.2, RDW Coeff of Deepika 14.2, Plt Count 440, MPV 9.7, Immature Gran % (Auto) 0.800, Neut % (Auto) 69.8, Lymph % (Auto) 16.4 L, [place] % (Auto) 9.7, Eos % (Auto) 3.0, Baso % (Auto) 0.3, Absolute Neuts (auto) 6.7, Absolute Lymphs (auto) 1.58, Nucleated RBC % 0, Sodium 128 L, Potassium 4.2, Chloride 96 L, Carbon Dioxide 24.0, Anion Gap 9, BUN 21 H, Creatinine 1.30, Estim Creat Clear Calc 42.37, Est GFR (MDRD) Af Amer 68, Est GFR (MDRD) Non-Af 56 L, BUN/Creatinine Ratio 16.2, Glucose 111 H, Calcium 9.3 D/C Instructions Discharge Diet: - (Transitional diet) Discharge Activity: May Not Drive (3-5 days after surgery) Lifting Restrictions: 10 pounds for 4 weeks. No strenuous activity for 4 weeks Call your doctor if your incision/area has: Continuous Slow Oozing, Sudden Increased Bleeding, Increased Pain/ Swelling, Increased Redness, Foul Smelling Discharge and Swelling at the incision site Call your doctor if you observe: Fever of 101 or Higher Suture Line Care: Avoid Pulling/Pushing and Avoid Pinching/Bending Cleanse incision/area with: Soap & Water Please Follow Up With: Du Thomas MD When: Please call to schedule follow-up appointment for 7-10 days at [phone], option 2. Meaningful Use Info Meaningful Use Meaningful Use Diagnoses (Choose all that apply): None applicable Ischemic Stroke Statin Dosing Therapy Reference: STATIN DOSE THERAPY REFERENCE: * Patients > 75 years receive moderate or high dose statin therapy. * Patients 75 years or YOUNGER should receive HIGH intensity statin dose unless contraindicated. You will be required to document reason for non-treatment if statin daily dose does not meet guidelines. HIGH DOSE STATIN THERAPY DAILY Atorvastatin > than or = to 40 mg Rosuvastatin > than or = to 20 mg Amlodipine + Atorvastatin > than or = to 2.5/40 mg Ezetimibe + Simvastatin 10/80 mg Simvastatin 80mg Discharge Plan Admission Admit Date/Time: 04/27/24 12:10 Primary Reason for Your Visit: s/p right hemicolectomy for colon cancer Attending Provider: Du Thomas Primary Care Provider: Tami Omalley Consulting Providers: Keo Burgos Instructions Additional Instructions / Restrictions: Colectomy Diet ? Start light with soups and soft bland foods. Refer to your transitional diet instruction sheet Activity ? You may drive in 5-7 days but not while taking narcotic pain medication. ? I encourage walking. You may go up steps, one at a time. ? Do not swim or use hot tubs for 2 weeks. Lifting ? You may lift up to 10 pounds for 4 weeks. No strenuous activity for 4 weeks. Dressings/Incision ? You may shower ? Do NOT tub bathe for 1 week ? You may remove steri-strips after 1 week. We recommend getting them soaking wet for easier removal. Medications ? Anesthesia used during surgery and pain medications may cause constipation. I recommend initiating on the day of surgery a fiber supplement like, Metamucil, Citrucel, FiberCon, Benefiber, or a generic form of these medications. 1 heaping tablespoon in water daily. You may continue to utilize any bowel regimen or oral laxatives that you routinely take. ? As long as you are not intolerant to Tylenol, acetaminophen, ibuprofen, Motrin, Advil, Aleve, or similar medications, I would recommend transitioning to these [id number] medicines as soon as possible instead of continued use of narcotic pain medication. Follow up ? You should call [facility] soon after surgery, at [phone] option 2 to make a follow up appointment for 7-10 days after your surgery. Transitional Diet Beverages: ? Soda (cola, diet cola, lemon-naknek, diet lemon-naknek, angi carmen, diet angi carmen) ? Tea (hot or iced) ? Milk (low-fat, 2%, lactose free) ? Coffee ? Juice (without pulp) ? Oral Nutrition supplement Breakfast: ? Hot cereal (oatmeal or cream of wheat) ? Scrambled eggs ? Blueberry muffin ? Cold cereal (no whole grain cereals) ? [place] (white) Lunch or Dinner: Deli Items: Hot Items: [place] sandwich Roast [place] Tuna salad (sandwich or alone) Macaroni & Cheese Egg salad (sandwich or alone) Mashed potatoes & gravy Chicken salad (sandwich or alone) Carrots Green beans Cold Sides: Soups: Cottage cheese Vegetable soup Yogurt Chicken noodle Hardboiled egg Dessert: ? Gelatin, pudding, side kick (juice slushie) Discharge Orders/Prescriptions Prescriptions: New acetaminophen 500 mg Tablet 650 mg PO Q6 PRN (Reason: pain) Qty: 0 0RF enoxaparin 40 mg/0.4 mL Syringe 40 mg subcut DAILY 7 Days Qty: 2.8 0RF sodium chloride 1,000 mg Tablet,Soluble 1,000 mg PO BID 7 Days Qty: 14 0RF Continued metoprolol tartrate 25 mg tablet 25 mg PO BID Qty: 60 3RF amlodipine 5 mg tablet 5 mg PO BID Qty: 60 3RF Patient Comments: took 10mg this am Discontinued neomycin 500 mg tablet 500 mg PO .COMPLEX Qty: 6 0RF Patient Comments: completed Rx Instructions: 500 mg orally At 1:00pm take 2 neomycin tablets; at 3:00pm take 2 neomycin tablets; at 11:00pm take 2 neomycin tablets; metronidazole 500 mg tablet 500 mg PO .COMPLEX Qty: 6 0RF Patient Comments: completed Rx Instructions: 500 mg orally 500 mg orally At 1:00pm take 2 metronidazole tablets; at 3:00pm take 2 metronidazole tablets; at 11:00pm take 2 metronidazole tablets; Referrals / Follow Up: Du Thomas MD [Med Staff - Active Staff] - (Contact our office for a 7-10 day follow-up) Tami Omalley NP-C [Primary Care Provider] - Disposition Disposition (needs filled in before D/C Order can be placed): Home, Self Care Charges/Coding Visit Charges Inpatient E&M: 38066 [facility] (No charge; post-op)
[2024-05-01] MEDS: Ensure Plus High Protein 120 ML LIQUID PO (09:32)
[2024-05-01] MEDS: Lactobacillis Acidophilus 1 CAP PO (09:32)
[2024-05-01] MEDS: Docusate Sodium 100 MG Capsule PO (09:33)
[2024-05-01] MEDS: Sodium Chloride 1 GM Tablet PO (13:10)
--- NOTE | 2024-05-01 13:13 | CASEMGMT ---
Addendum entered by Ashley Adams 05/01/24 13:17: JENNIFER BOLTON into pt room, pt nurse present and starting to teach lovenox injections. Pt with female visitor in room. Pt states he will be fine with the lovenox injection. He is preparing to give to himself with the nurse direction. He is aware of the cost of medication. Pt denies any further homegoing needs at this time. Original Note: TC to [facility] pharmacy, pt cost for lovenox is $29.14.
[2024-05-01 14:38] VITALS: BP 166/68; PULSE 74; RESP 18; TEMP 36.7; O2SAT 100
== END 2024-05-01 16:21 | disposition home or self-care (01) | DRG 330 ==
PROVIDERS: Anesthesiology; Physician Assistant; Admitting Provider Surgery; PCP Nurse Practitioner Family; Referring Provider Surgery; Visit Provider Surgery
PROC: 0DTF4ZZ Resection of Right Large Intestine, Percutaneous Endoscopic Approach (ICD-10-PCS; CPT 44205; principal; 2024-04-27 07:10)
DX: C18.2 Malignant neoplasm of ascending colon (principal); K56.7 Ileus, unspecified; I10 Essential (primary) hypertension; D64.9 Anemia, unspecified; I25.10 Atherosclerotic heart disease of native coronary artery without angina pectoris; Z87.891 Personal history of nicotine dependence; Z86.73 Personal history of transient ischemic attack (TIA), and cerebral infarction without residual deficits; Z95.1 Presence of aortocoronary bypass graft
CPT/HCPCS: 36415; 80048; 81002; 82962; 83735; 85025; 85027; 88309; 88341; 88342; 94668; J7120; A4216; J2405; J3490

== ENCOUNTER → 2024-05-07 | Outpatient (CLI) | payer MEDICARE, SELFPAY ==
[2024-05-07 18:05] LABS: Absolute Lymphocyte Count 1.28 X10^3/uL (0.83-4.51); Absolute Neutrophil Count 3.6 X10^3/uL (2.0-7.7); Basophil# 0.02 X10^3/uL; Basophil% 0.4 % (0-1); Eosinophils% 1.8 % (0-5); Hematocrit 29.4 % (40-54); Hemoglobin 8.8 g/dL (13.0-16.5); Lymphocyte # 1.28 X10^3/ul (0.83-4.51); Mean Corp Hgb Conc 29.9 g/dL (32-36); Mean Corpuscular Hgb 25.4 pg (27.0-32.0); Mean Platelet Vol. 9.8 fl (6.2-12.0); Monocyte# 0.58 X10^3/uL; Monocyte% 10.4 % (0-10); NRBC Flagged by Analyzer 0 % (0-5); Neutrophil # 3.55 X10^3/uL (2.7-7.7); Neutrophil % 63.9 % (47-70); Platelet Count 416 K/mm3 (150-450); RBC Distribution Width CV 14.3 % (11.6-14.6); RBC Distribution Width SD 44.5 fl (35.1-43.9); Red Blood Count 3.46 M/mm3 (4.6-6.2); White Blood Count 5.6 K/mm3 (4.4-11.0)
[2024-05-07 18:12] LABS: Anion Gap 7 (5-15); BUN 16 mg/dL (7-18); BUN/Creat Ratio 13.7 RATIO (10-20); Calcium,Total 9.5 mg/dL (8.5-10.1); Chloride 103 mmol/L (98-107); Creatinine, Serum 1.17 mg/dL (0.70-1.30); EST Glomerular Filtration Rate 64 mL/min (>60); Est Glom Filt Rate - Afr Amer 77 mL/min (>60); Glucose 112 mg/dL (74-106); Potassium 4.6 mmol/L (3.5-5.1); Sodium Level 135 mmol/L (136-145)
== END | disposition home or self-care (01) ==
LOC: BFHLAB 14:51
PROVIDERS: PCP Nurse Practitioner Family; Referring Provider Nurse Practitioner Family; Visit Provider Nurse Practitioner Family
DX: I10 Essential (primary) hypertension (principal)
CPT/HCPCS: 36415; 80048; 85025

== ENCOUNTER 2024-06-07 11:17 | Emergency (ER) | payer SELFPAY ==
[2024-06-07] VITALS (7 sets, daily range): BP systolic 123–215; BP diastolic 62–95; PULSE 61–81; RESP 14–16; TEMP 36.1–36.6; O2SAT 98–100; BMI 26.8
[2024-06-07 12:17] LABS: Absolute Lymphocyte Count 1.13 X10^3/uL (0.83-4.51); Absolute Neutrophil Count 3.7 X10^3/uL (2.0-7.7); Basophil# 0.02 X10^3/uL; Basophil% 0.4 % (0-1); Eosinophil# 0.23 X10^3/uL; Eosinophils% 4.1 % (0-5); Hemoglobin 11.1 g/dL (13.0-16.5); Lymphocyte # 1.13 X10^3/ul (0.83-4.51); Mean Corp Hgb Conc 31.7 g/dL (32-36); Mean Corpuscular Hgb 27.1 pg (27.0-32.0); Mean Corpuscular Volume 85.4 fL (80-94); Mean Platelet Vol. 9.5 fl (6.2-12.0); Monocyte# 0.59 X10^3/uL; Monocyte% 10.4 % (0-10); NRBC Flagged by Analyzer 0 % (0-5); Neutrophil # 3.66 X10^3/uL (2.7-7.7); Neutrophil % 64.7 % (47-70); Platelet Count 301 K/mm3 (150-450); RBC Distribution Width CV 18.9 % (11.6-14.6); RBC Distribution Width SD 57.8 fl (35.1-43.9); White Blood Count 5.7 K/mm3 (4.4-11.0)
[2024-06-07] MEDS: Lisinopril 20 MG Tablet PO (12:33)
[2024-06-07 12:35] LABS: Anion Gap 7 (5-15); BUN 19 mg/dL (7-18); BUN/Creat Ratio 18.3 RATIO (10-20); Calcium,Total 9.7 mg/dL (8.5-10.1); Chloride 103 mmol/L (98-107); Creatinine, Serum 1.04 mg/dL (0.70-1.30); EST Glomerular Filtration Rate 73 mL/min (>60); Est Glom Filt Rate - Afr Amer 88 mL/min (>60); Estimated Creatinine Clearance 52.96 ml/min; Glucose 101 mg/dL (74-106); Potassium 4.1 mmol/L (3.5-5.1); Sodium Level 136 mmol/L (136-145)
[2024-06-07] MEDS: 0.9% Normal Saline (500mL Bag) 500 ML 999 ML IV (13:36)
[2024-06-07] MEDS: Magnesium Sulfate 1 GM in Dextrose 5%-Water (100mL Bag) 100 ML IV (13:52)
== END 2024-06-07 16:24 | disposition home or self-care (01) ==
PROVIDERS: Physician Assistant; Emergency Provider Emergency Medicine; PCP Nurse Practitioner Family; Visit Provider Emergency Medicine
DX: I10 Essential (primary) hypertension (principal); Z87.891 Personal history of nicotine dependence; I25.10 Atherosclerotic heart disease of native coronary artery without angina pectoris; Z90.49 Acquired absence of other specified parts of digestive tract; Z85.038 Personal history of other malignant neoplasm of large intestine; Z86.73 Personal history of transient ischemic attack (TIA), and cerebral infarction without residual deficits; Z98.52 Vasectomy status; Z79.899 Other long term (current) drug therapy
CPT/HCPCS: 80048; 85025; 93005; 96365; 96366; 99283; A4216

== ENCOUNTER 2024-06-08 12:21 | Inpatient (IN) | payer MEDICARE, SELFPAY ==
[2024-06-08] VITALS (8 sets, daily range): BP systolic 109–174; BP diastolic 52–84; PULSE 60–84; RESP 14–24; TEMP 36.4–37.2; O2SAT 97–100; BMI 27.0; BMI 25.9
--- NOTE | 2024-06-08 12:52 | EKG12_ITS ---
Test Reason : Blood Pressure : */* mmHG Vent. Rate : 61 BPM Atrial Rate : 61 BPM P-R Int : 194 ms QRS Dur : 92 ms QT Int : 440 ms P-R-T Axes : 29 7 82 degrees QTcB Int : 442 ms Normal sinus rhythm Normal ECG Confirmed by CHRISTIE DAVIS, DONAVAN ([id number]), avid editor EDEN MENESES ([id number]) on 06/11/2024 9:53:39 AM Referred By: Confirmed By: DONAVAN SORIANO MD
--- NOTE | 2024-06-08 12:52 | CT_ITS ---
STUDY: CTA CHEST, ABDOMEN T PELVIS WITH CONTRAST REASON FOR EXAM: Male, 79 years old. Chest/abdomen pain. Patient had a liver biopsy earlier today. RADIATION DOSAGE (If Supplied By Facility): CTDIvol = ( 7.23 ) mGy, DLP = ( 504.01 ) mGycm TECHNIQUE: Transaxial imaging was performed following intravenous administration of IV 100mL Isovue-370. Individualized dose optimization techniques were used for this CT. COMPARISON: No relevant priors. FINDINGS: CHEST Mild degree of posterior left apical scarring. There is no demonstrated pleural abnormality. There are calcifications of the coronary arteries. Sternal cerclage wires and vascular clips are present from a prior sternotomy and coronary artery bypass graft procedure (CABG). Normal mediastinum. Normal hilar regions. Normal unenhanced pulmonary arteries. Normal aorta arch and descending thoracic aorta. There are multi-level degenerative changes of the thoracic spine. ABDOMEN There is evidence of a small subcapsular hepatic hematoma. Normal gallbladder and extrahepatic biliary system. Small amount of perisplenic hematoma. Stable focal hypoechoic density along the inferior lateral aspect of the right lobe of liver suggestive calcification. Normal pancreas. Normal bilateral adrenal glands. Normal right kidney. Normal left kidney. Atherosclerotic calcification of the abdominal aorta. PELVIS Normal urinary bladder. Small amount of the blood is seen in the pelvis. Normal visualized small intestine. Prior colonic anastomosis in the right hemicolon. There is no pelvic lymphadenopathy or mass lesion. There is diffuse atherosclerotic calcification of the pelvic arteries. Normal abdominal wall. There are diffuse degenerative changes of the visualized lumbar spine. CT/CTA Chst, Abd, Pel W and/or WO IMPRESSION: Small subcapsular hepatic hematoma. Small amount of perisplenic hematoma as well as fluid in the pelvis. The patient did have a liver biopsy earlier today. Electronically Signed: Daniel Espino MD at 13:21 EST ,
--- NOTE | 2024-06-08 12:57 | EX.ED.DYSGE1 ---
HPI <MARYAM Peres - Last Filed: 06/08/24 14:23> History of Present Illness Chief Complaint: Syncope Narrative Narrative: Patient is an 79-year-old male with history of colon cancer who recently had a colectomy who is currently receiving a biopsy for nodules. Patient today had a liver biopsy, the procedure and he says went fine, he then went to the gift shop and had a syncopal episode. Patient states he did feel that he was going to pass out, he did lower himself to the ground, he was incontinent of urine, per medical staff, the patient was completely syncopized. Patient has been dealing with hypertension, he also was complaining of some abdominal pain and chest pain. Patient is pale appearing. Here for evaluation. 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 Chronic hypertension Acute alteration in mental status Neuropathy Vasectomy planned Hyponatremia TIA (transient ischemic attack) CVA (cerebral vascular accident) Hypertension History of stroke Tobacco use Benign essential hypertension Home Medications ?Medication ?Instructions ?Recorded ?Last Taken ?Type metoprolol tartrate 25 mg tablet 25 mg PO BID BP #60 tabs 04/25/24 06/08/24 Rx amlodipine 5 mg tablet 5 mg PO DAILY HEART 05/16/24 06/08/24 History ferrous sulfate 325 mg (65 mg 325 mg PO BID #60 tabs 05/16/24 06/07/24 Rx iron) tablet (Iron (ferrous sulfate)) clonidine HCl 0.1 mg tablet 0.1 mg PO DAILY PRN hbp 06/08/24 Unknown History potassium chloride 10 mEq 10 meq PO BID 06/08/24 Unknown History tablet,extended release Allergy/AdvReac Type Severity Reaction Status Date / Time No Known Allergies Allergy Verified 06/08/24 12:22 Family History Father Arthritis Alcohol abuse Mother Alcohol abuse Liver disease Surgical History H/O vasectomy S/P right hemicolectomy History of tonsillectomy History of appendectomy 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) Social History Smoking Status: Former smoker alcohol intake: never substance use type: does not use ROS <MARYAM Peres - Last Filed: 06/08/24 14:23> ROS ED ROS Narrative Constitutional: Negative for fever, chills, weight loss. Positive for weakness Eyes: Negative for vision loss, vision change, double vision ENT: Negative for any sore throat, ear pain, congestion Cardiovascular: Negative for any tightness, palpitations. Positive intermittent chest tightness, syncope episode Respiratory: Negative for any cough, sputum production, hemoptysis, dyspnea, dyspnea on exertion, orthopnea Gastrointestinal: Negative for any abdominal pain, nausea, vomiting, diarrhea, constipation, blood in stool, blood in vomit : Negative for any urinary frequency, dysuria, retention, blood in urine Muscle skeletal: Negative for any neck pain, back pain Neurological: Negative for any headache.positive syncope, dizziness Skin: Negative for any rashes, itching, abrasions, lacerations Psychiatric: Negative for any depression, anxiety, stress, suicidal ideation, homicidal ideation Hematologic: Negative for any excessive bruising, easy bleeding EXAM <MARYAM Peres - Last Filed: 06/08/24 14:23> Physical Exam Narrative Exam Narrative: Vital signs reviewed. Patient's blood pressure is within normal limits, patient does have some paleness. HEET: Head normocephalic atraumatic, TMs clear bilaterally. Posterior pharynx is clear, dry mucous membranes. Nares clear bilaterally. Neck: Supple with no lymphadenopathy or tenderness. No signs of meningismus. Cardiac: Regular rate and rhythm positive systolic murmur, gallops or rubs, equal peripheral pulses bilaterally. Respiratory: Lungs clear to auscultation bilaterally. No chest tenderness. Abdomen: Soft, nontender, nondistended. No abdominal bruit or pulsatile masses. No hepatosplenomegaly Extremities: No peripheral edema, no signs of gross trauma or deformity. Active full range of motion of all extremities. Neuro: Cranial nerves II through XII intact, no focal neurological deficits. Skin: Clean dry and intact with no rash, purpura, petechiae, vesicles or pustules. Backs/flank: No CVA tenderness, no midline spinal tenderness, no deformity. Psych: Normal mood and affect. No SI, HI or acute psychosis. Const Vital Signs: 06/08/24 12:22 06/08/24 12:43 06/08/24 12:53 Temperature 98.9 F Temperature Source Oral Pulse Rate 63 Respiratory Rate 16 Respiratory Effort Normal Respiratory Pattern Normal Blood Pressure 138/72 H Blood Pressure Mean 94 Pulse Ox 98 Oxygen Delivery Method Room Air Room Air 06/08/24 13:18 06/08/24 14:00 Temperature Temperature Source Pulse Rate 63 60 Respiratory Rate 24 H 14 Respiratory Effort Respiratory Pattern Blood Pressure 171/66 H 122/77 H Blood Pressure Mean 101 92 Pulse Ox 100 97 Oxygen Delivery Method Room Air Room Air <Dr. Gt Ro DO - Last Filed: 06/08/24 16:58> Physical Exam Const Vital Signs: 06/08/24 12:22 06/08/24 12:43 06/08/24 12:53 Temperature 98.9 F Temperature Source Oral Pulse Rate 63 Respiratory Rate 16 Respiratory Effort Normal Respiratory Pattern Normal Blood Pressure 138/72 H Blood Pressure Mean 94 Pulse Ox 98 Oxygen Delivery Method Room Air Room Air 06/08/24 13:18 06/08/24 14:00 Temperature Temperature Source Pulse Rate 63 60 Respiratory Rate 24 H 14 Respiratory Effort Respiratory Pattern Blood Pressure 171/66 H 122/77 H Blood Pressure Mean 101 92 Pulse Ox 100 97 Oxygen Delivery Method Room Air Room Air [facility] <MARYAM Peres - Last Filed: 06/08/24 14:23> [facility] Lab Data Labs: Laboratory Results - last 24 hr 06/08/24 06/08/24 12:27 13:17 WBC 13.4 H RBC 4.19 L Hgb 11.1 L Hct 35.8 L MCV 85.4 MCH 26.5 L MCHC 31.0 L RDW Std Deviation 57.8 H RDW Coeff of Deepika 18.9 H Plt Count 372 MPV 9.8 Immature Gran % (Auto) 0.600 Neut % (Auto) 76.4 H Lymph % (Auto) 14.5 L Bladen % (Auto) 6.7 Eos % (Auto) 1.6 Baso % (Auto) 0.2 Absolute Neuts (auto) 10.2 H Absolute Lymphs (auto) 1.94 Nucleated RBC % 0 PT 14.3 INR 1.1 Sodium 136 Potassium 3.8 Chloride 105 Carbon Dioxide 23.0 Anion Gap 8 BUN 22 H Creatinine 1.21 Estim Creat Clear Calc 45.52 Est GFR (MDRD) Af Amer 74 Est GFR (MDRD) Non-Af 61 BUN/Creatinine Ratio 18.2 Glucose 127 H Calcium 9.4 Total Bilirubin 0.60 Direct Bilirubin 0.18 AST 23 ALT 20 Alkaline Phosphatase 103 Troponin I High Sens 97 H B-Natriuretic Peptide 109.8 H Total Protein 7.1 Albumin 3.6 Globulin 3.5 Lipase 26 Radiography Diagnostic Testing: Clinical Impression(s) from Imaging Studies Chest/Abdomen/Pelvis CTA 06/08/24 12:52 IMPRESSION: Small subcapsular hepatic hematoma. Small amount of perisplenic hematoma as well as fluid in the pelvis. The patient did have a liver biopsy earlier today. Electronically Signed: Daniel Espino MD at 13:21 EST , Chest X-Ray 06/08/24 13:10 IMPRESSION: No acute abnormality is seen. Electronically Signed: Daniel Espino MD at 13:26 EST , EKG Normal sinus rhythm: Attestation: I personally reviewed and interpreted this EKG as follows: Interpretation: Sinus Rhythm Comments: Normal sinus rhythm, rate of 63 bpm, PA interval 166 ms, QRS duration 90 ms, no acute ST elevation, no acute infarct noted. Treatment and Re-Evaluation :: Differential diagnosis includes however is not limited to: Hemorrhage, aortic dissection, vasovagal syncope, orthostatic hypotension, medication reaction, anemia Patient on my initial evaluation does appear pale however patient's vital signs are stable. Presenting to the emergency department after a syncopal episode in the hospital post liver biopsy. Patient did receive 2 mg of IV Versed as well as 50 mcg of fentanyl. However secondary the patient's chest pain, syncopal episode, patient will need to be worked up. Patient will see the CTA of the chest abdomen pelvis, basic laboratory values, including troponins and EKGs. Patient will be reevaluated. All radiologic examinations were read, reviewed by the emergency department attending. From these reads, a plan of care will be put in place. Patient CBC shows a leukocytosis with a white blood count 13.4, anemia was 11.1 which is stable. PT/INR within normal limits. Patient's BUN 22, glucose 127, BNP slightly elevated at 109.8. Lipase and liver panel are still CTA showed a small subcapsular hepatic hematoma. Small amount of perisplenic hematoma as well as in the fluid in the pelvis. The patient did have a liver biopsy earlier today. My ER attending did speak with the IR attending. At this time, patient will be observed in the hospital. The patient is able to stay here according to the interventional radiologist. Patient will be admitted. <Dr. Gt Ro, DO - Last Filed: 06/08/24 16:58> [facility] MDM Narrative Medical decision making narrative: Supervisory Physician Note Patient was seen and examined with the Advanced Practice Provider. Nursing notes and vital signs have been reviewed. Pertinent old records have been reviewed. I agree with the essential elements of the ODILON's history, physical exam, assessment, and plan. The differential diagnosis and management options were discussed with the ODILON. I participated in determining and agree with the management, procedures, final impression and disposition as documented. See changes noted by me. Please see addendum or separate note for any additional details. 79-year-old male with history of laparoscopic right hemicolectomy on 04/27/2024 for colon cancer metastasized to intra-abdominal lymph nodes, CAD status post CABG, HTN presents to the ED as a rapid response due to syncopal episode. History taken by patient, rapid response hospitalist physician, family, and medical record. Patient had a liver biopsy today in which he received 2 mg of Versed and 50 mcg of fentanyl. I called CT to obtain this information. Shortly after the procedure he felt like he was going to pass out in which he lowered himself to the ground and lost consciousness. He was incontinence of urine but no seizure-like activity reported. No loss of bowel. Did not bite his tongue. Patient states that he feels back to his baseline other than having abdominal pain from his biopsy site that is radiating down into his right lower quadrant as well as up until his chest. He denies any fever, chills, shortness of breath, vomiting. Patient states that he developed hypertension prior to procedures and therefore he did take a extra dose of his amlodipine today he is supposed to take 5 mg but took 10 mg as well as his 25 mg of metoprolol. Patient states he did this because in the past Dr. Flores told him to do this prior to procedures. On presentation patient is pale appearing but vitals are stable other than some mild hypertension. On chart review, patient was just seen in our emergency department yesterday for hypertension urgency. Gen: A&O x3, NAD but pale Head: Normocephalic, atraumatic Eyes: No sclera icterus, conjunctiva clear ENT: Moist mucous membranes Neck: Trachea midline, No JVD CV: RRR, no murmurs, no peripheral edema Resp: Lungs CTA BL, no w/r/c GI: Abd soft, non-distended, mild tenderness to palpation diffusely in the abdomen, no r/r/g Musc: Full ROM, no deformity Skin: Warm, dry Neuro: Alert, oriented, grossly intact, sensation intact Psych: Cooperative, appropriate mood and affect EKG: Interpreted by me/EM physician: EKG shows normal sinus rhythm with a heart rate of 63. No acute ischemic changes. Diagnostic: Interpreted by me/EM physician: Chest x-ray without pneumonia, effusion, pneumothorax Differential diagnosis includes but is not limited to intra-abdominal hemorrhage, PE, aortic dissection, vasovagal syncope, medication side effect, electrolyte abnormality, ACS On presentation, vitals are stable other than some mild hypertension. On room air. EKG and chest x-ray reviewed, see below. CBC with mild leukocytosis of 13.4. Patient has anemia of 11.1 and this is slightly downtrending from 11.4 earlier this morning. BMP without PANFILO. Liver panel without transaminitis. Lipase unremarkable. Troponin flat in the mid 90s. On previous laboratory results this appears to be his baseline. BNP mildly elevated at 109.8. Patient is not overtly fluid overloaded. CTA chest and abdomen shows a small subcapsular hepatic hematoma. Small amount of perisplenic hematoma as well as fluid in the pelvis. Patient's previous liver biopsy was performed by Dr. Espino. Dr. Espino was contacted and patient as well as imaging results were discussed. No concern for active bleed at this time. He agrees with admission for continued monitoring. Okay for admission at [facility] no need for transfer per him. Patient was updated on all the results and the plan for admission for observation. He confirmed understanding. He is in agreement to this. Patient was discussed with Dr. Polanco who accepted admission impression. Impression: 1. Syncope 2. Status post liver biopsy today with small subcapsular hepatic hematoma, small perisplenic hematoma as well as fluid in the pelvis 3. Chronic anemia Lab Data Labs: Laboratory Results - last 24 hr 06/08/24 06/08/24 12:27 13:17 WBC 13.4 H RBC 4.19 L Hgb 11.1 L Hct 35.8 L MCV 85.4 MCH 26.5 L MCHC 31.0 L RDW Std Deviation 57.8 H RDW Coeff of Deepika 18.9 H Plt Count 372 MPV 9.8 Immature Gran % (Auto) 0.600 Neut % (Auto) 76.4 H Lymph % (Auto) 14.5 L Bladen % (Auto) 6.7 Eos % (Auto) 1.6 Baso % (Auto) 0.2 Absolute Neuts (auto) 10.2 H Absolute Lymphs (auto) 1.94 Nucleated RBC % 0 PT 14.3 INR 1.1 Sodium 136 Potassium 3.8 Chloride 105 Carbon Dioxide 23.0 Anion Gap 8 BUN 22 H Creatinine 1.21 Estim Creat Clear Calc 45.52 Est GFR (MDRD) Af Amer 74 Est GFR (MDRD) Non-Af 61 BUN/Creatinine Ratio 18.2 Glucose 127 H Calcium 9.4 Total Bilirubin 0.60 Direct Bilirubin 0.18 AST 23 ALT 20 Alkaline Phosphatase 103 Troponin I High Sens 97 H B-Natriuretic Peptide 109.8 H Total Protein 7.1 Albumin 3.6 Globulin 3.5 Lipase 26 Radiography Diagnostic Testing: Clinical Impression(s) from Imaging Studies Chest/Abdomen/Pelvis CTA 06/08/24 12:52 IMPRESSION: Small subcapsular hepatic hematoma. Small amount of perisplenic hematoma as well as fluid in the pelvis. The patient did have a liver biopsy earlier today. Electronically Signed: Daniel Espino MD at 13:21 EST , Chest X-Ray 06/08/24 13:10 IMPRESSION: No acute abnormality is seen. Electronically Signed: Daniel Espino MD at 13:26 EST , Discharge Plan Dx/Rx/DC Orders Clinical Impression: Syncopal episodes, Anemia, History of liver biopsy, Liver hematoma Disposition Disposition: Acute Care Hospital [facility] Discharge Date/Time: 06/08/24 15:06
[2024-06-08 12:58] LABS: Absolute Lymphocyte Count 1.94 X10^3/uL (0.83-4.51); Absolute Neutrophil Count 10.2 X10^3/uL (2.0-7.7); Basophil# 0.03 X10^3/uL; Basophil% 0.2 % (0-1); Eosinophil# 0.22 X10^3/uL; Eosinophils% 1.6 % (0-5); Hematocrit 35.8 % (40-54); Hemoglobin 11.1 g/dL (13.0-16.5); Lymphocyte # 1.94 X10^3/ul (0.83-4.51); Lymphocyte % 14.5 % (19-41); Mean Corpuscular Hgb 26.5 pg (27.0-32.0); Mean Corpuscular Volume 85.4 fL (80-94); Mean Platelet Vol. 9.8 fl (6.2-12.0); Monocyte% 6.7 % (0-10); NRBC Flagged by Analyzer 0 % (0-5); Neutrophil # 10.22 X10^3/uL (2.7-7.7); Neutrophil % 76.4 % (47-70); Platelet Count 372 K/mm3 (150-450); RBC Distribution Width CV 18.9 % (11.6-14.6); RBC Distribution Width SD 57.8 fl (35.1-43.9); Red Blood Count 4.19 M/mm3 (4.6-6.2); White Blood Count 13.4 K/mm3 (4.4-11.0)
--- NOTE | 2024-06-08 13:10 | RAD_ITS ---
STUDY: X-RAY CHEST REASON FOR EXAM: Male, 79 years old. Chest pain TECHNIQUE: Single AP portable view of the chest. COMPARISON: Comparison is made with prior study December 11, 2023. FINDINGS: EKG electrodes are seen. The lungs are clear and expanded. There is no demonstrated pleural abnormality. Sternal cerclage wires and vascular clips are present from a prior sternotomy and coronary artery bypass graft procedure (CABG). Normal mediastinum and yasmeen. Normal visualized pulmonary arteries. Normal visualized aortic arch and descending thoracic aorta. Normal visualized thoracic spine. Normal visualized ribs, clavicles, and shoulders. There is no demonstrated abnormality of the visualized soft tissue structures of the upper abdomen. RAD/Chest 1 View (Portable) IMPRESSION: No acute abnormality is seen. Electronically Signed: Daniel Espino MD at 13:26 EST ,
[2024-06-08 13:18] LABS: BNP,B-Type NATRIURETIC PEPTIDE 109.8 pg/mL (0-100)
[2024-06-08 13:22] LABS: Anion Gap 8 (5-15); BUN 22 mg/dL (7-18); BUN/Creat Ratio 18.2 RATIO (10-20); Calcium,Total 9.4 mg/dL (8.5-10.1); Chloride 105 mmol/L (98-107); Creatinine, Serum 1.21 mg/dL (0.70-1.30); EST Glomerular Filtration Rate 61 mL/min (>60); Est Glom Filt Rate - Afr Amer 74 mL/min (>60); Estimated Creatinine Clearance 45.52 ml/min; Glucose 127 mg/dL (74-106); Potassium 3.8 mmol/L (3.5-5.1); Sodium Level 136 mmol/L (136-145); Troponin-I HS (w/2H Reflex) 97 pg/mL (3.0-78.0)
[2024-06-08 13:36] LABS: International Normalized Ratio 1.1; Prothrombin Time (Protime)PT. 14.3 SECONDS (11.7-14.9)
[2024-06-08 14:55] LABS: Reflex Troponin-HS? (from REC) Y
--- NOTE | 2024-06-08 15:11 | PCM.HP.STD ---
HPI - General General Date of Admission: 06/08/24 Date of Service: 06/08/24 Chief Complaint: syncopal episode HPI Narrative JARED PEREZ, is a 79-year-old male with history of hypertension and colon cancer with recent colectomy who had a liver biopsy today who presented [facility] ED 06/08/2024 after rapid response in the hallway.? He had his liver biopsy and afterwards went to the gift shop and felt like he was going to pass out, did lower self to the ground and physician arrived onsite and he was found to be hypotensive and had urinated on himself but no seizure activity, did have complete syncope.? Patient was laid on the ground and regained consciousness as blood pressure improved.? It was then revealed that he took double of his high blood pressure medication for the liver biopsy as he was worried it would be canceled if his blood pressure was too high.? In the ED patient normotensive, hemoglobin 11.1, troponin 97. ?CTA chest/abdomen/pelvis with small subcapsular hepatic hematoma and small amount of perisplenic hematoma as well as fluid in the pelvis.? ED physician discussed with interventional radiologist who performed the procedure and read the CTA and was felt the patient did have a certain amount of bleeding but it seems to tamponade it.? He agreed with admission to monitor patient and was comfortable with him being admitted to our institution and did not think he needed transferred.? Hospitalist contacted for admission.? Patient evaluated bedside. He reports that yesterday He was in the ED for high blood pressure and he was so worried that his liver biopsy today will be canceled so very late last night he took extra blood pressure medicine took 10 of amlodipine and then 25 metoprolol, then when he woke up several hours later he took another 25 metoprolol, 10 of amlodipine and 0.1 of clonidine. He reports he has been struggling with his blood pressure with highs and lows for a long time. Had a little bit of right chest wall discomfort after this episode but reports it is significantly improved, denying any abdominal pain, no further lightheadedness, no other pain in his chest, no nausea, no bowel bladder changes. No numbness, weakness, tingling. Has a little bit of swelling in his right lower extremity which is chronic and is unchanged from usual. No headache, has some chronic vision problems due to macular degeneration. Denies any other new or acute complaints. 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 Chronic hypertension Acute alteration in mental status Neuropathy Vasectomy planned Hyponatremia TIA (transient ischemic attack) CVA (cerebral vascular accident) Hypertension History of stroke Tobacco use Benign essential hypertension Home Medications ?Medication ?Instructions ?Recorded ?Last Taken ?Type metoprolol tartrate 25 mg tablet 25 mg PO BID BP #60 tabs 04/25/24 06/08/24 Rx amlodipine 5 mg tablet 5 mg PO DAILY HEART 05/16/24 06/08/24 History ferrous sulfate 325 mg (65 mg 325 mg PO BID #60 tabs 05/16/24 06/07/24 Rx iron) tablet (Iron (ferrous sulfate)) clonidine HCl 0.1 mg tablet 0.1 mg PO DAILY PRN hbp 06/08/24 Unknown History potassium chloride 10 mEq 10 meq PO BID 06/08/24 Unknown History tablet,extended release Allergy/AdvReac Type Severity Reaction Status Date / Time No Known Allergies Allergy Verified 06/08/24 12:22 Family History Father Arthritis Alcohol abuse Mother Alcohol abuse Liver disease Surgical History H/O vasectomy S/P right hemicolectomy History of tonsillectomy History of appendectomy 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) Social History Smoking Status: Former smoker alcohol intake: never substance use type: does not use ROS ROS Narrative General: Denies fever/chills HENT: Denies headache, denies stuffy nose, denies sore throat EYES: Problems with chronic macular degeneration Resp: Denies cough, denies shortness of breath Cardiac: Had some right lower chest wall discomfort that is improved significantly GI: Denies abdominal pain, denies changes in bowel, denies nausea/vomiting : Denies changes in urination Extremity: Some chronic right lower extremity swelling unchanged MSK: Denies weakness Neuro: Denies any numbness/tingling Heme: Denies any bleeding or bruising Skin: Denies rashes Psychiatric: No complaints voiced Vital Signs Vital Signs Vital Signs: 06/08/24 12:22 06/08/24 12:43 06/08/24 12:53 Temperature 98.9 F Temperature Source Oral Pulse Rate 63 Respiratory Rate 16 Respiratory Effort Normal Respiratory Pattern Normal Blood Pressure 138/72 H Blood Pressure Mean 94 Pulse Ox 98 Oxygen Delivery Method Room Air Room Air 06/08/24 13:18 06/08/24 14:00 06/08/24 14:47 Temperature 98.3 F Temperature Source Pulse Rate 63 60 66 Respiratory Rate 24 H 14 18 Respiratory Effort Respiratory Pattern Blood Pressure 171/66 H 122/77 H 109/52 L Blood Pressure Mean 101 92 71 Pulse Ox 100 97 97 Oxygen Delivery Method Room Air Room Air Weight Weight: 75.1 kg Body Mass Index (BMI) 25.9 Physical Exam Narrative General: Alert, oriented, no apparent distress HEENT: Atraumatic, normocephalic Eyes: Anicteric, normal conjunctiva, extraocular movements grossly intact Neck: Supple Respiratory: Clear to auscultation bilaterally, normal respiratory effort Cardiovascular: Regular rate and rhythm, harsh systolic ejection murmur throughout the precordium GI: No rebound, guarding, rigidity Extremities: Trace right lower extremity edema which she reports is chronic Musculoskeletal: Moving all extremities Neuro: No overt focal neurological deficits Skin: No rashes appreciated Psych: Cooperative Results Lab / Micro Data 06/08/24 12:27 06/08/24 12:27 Labs: Laboratory Results - last 24 hr 06/08/24 12:27: WBC 13.4 H, RBC 4.19 L, Hgb 11.1 L, Hct 35.8 L, MCV 85.4, MCH 26.5 L, MCHC 31.0 L, RDW Std Deviation 57.8 H, RDW Coeff of Deepika 18.9 H, Plt Count 372, MPV 9.8, Immature Gran % (Auto) 0.600, Neut % (Auto) 76.4 H, Lymph % (Auto) 14.5 L, Barron % (Auto) 6.7, Eos % (Auto) 1.6, Baso % (Auto) 0.2, Absolute Neuts (auto) 10.2 H, Absolute Lymphs (auto) 1.94, Nucleated RBC % 0, Sodium 136, Potassium 3.8, Chloride 105, Carbon Dioxide 23.0, Anion Gap 8, BUN 22 H, Creatinine 1.21, Estim Creat Clear Calc 45.52, Est GFR (MDRD) Af Amer 74, Est GFR (MDRD) Non-Af 61, BUN/Creatinine Ratio 18.2, Glucose 127 H, Calcium 9.4, Troponin I High Sens 97 H, B-Natriuretic Peptide 109.8 H 06/08/24 13:17: PT 14.3, INR 1.1 Imaging Radiology Impression Chest/Abdomen/Pelvis CTA 06/08/24 12:52 IMPRESSION: Small subcapsular hepatic hematoma. Small amount of perisplenic hematoma as well as fluid in the pelvis. The patient did have a liver biopsy earlier today. Electronically Signed: Daniel Espino MD at 13:21 EST , Chest X-Ray 06/08/24 13:10 IMPRESSION: No acute abnormality is seen. Electronically Signed: Daniel Espino MD at 13:26 EST , Assessment & Plan Assessment/Plan (1) Syncopal episodes: PLAN: Plan #Syncope -Suspect multifactorial with patient doubling up on blood pressure medication causing hypotension in the setting of moderate aortic stenosis and also having some post liver biopsy bleeding -Hemoglobin in the ED 11.1 -Patient presently normotensive -Hold scheduled antihypertensives today and add as needed to avoid significant hypertension -Will give gentle hydration -admit to telemetry -EGK normal sinus rhythm with heart rate of 63, QTc 454, some nonspecific T wave changes -Given patient was floridly hypotensive when he syncopized do not think orthostatic vital signs are necessary acutely, will order for a.m. however -Had an echo less than 2 months ago which showed EF 70% with normal diastolic function and moderate aortic stenosis, do not feel repeat is necessary at this time # Elevated troponin -Suspect this is secondary to patient's significant hypotension -Will trend -EKG normal sinus rhythm heart rate of 63 with a QTc of 454 and nonspecific T changes -After his syncopal episode he had some right lower what sounded to be chest wall discomfort that is since significantly improved #Hx CAD -w/ hx of CABG 2018 -Patient refuses to take aspirin or statin, discussed these and patient adamantly against #Hx CVAs -Pt refuses statin and aspirin # Small subcapsular hepatic hematoma and small perisplenic hematoma -Seen on CT scan -This finding was discussed with interventional radiologist who performed the procedure and who read the CTA and it was felt there was no further ongoing bleeding and that admission for further monitoring was reasonable and patient okay to be admitted to our institution -Will repeat H&H # Hypertension -Holding antihypertensives as above # Colon cancer -Status post colectomy -Will need outpatient follow-up #DVT ppx: SCDs Lucy Polanco MD Charges/Coding Visit Charges Inpatient E&M: 65062 Init Hosp L2
[2024-06-08 15:21] LABS: AST(SGOT) 23 U/L (15-37); Alanine Aminotransfer ALT/SGPT 20 U/L (16-61); Albumin, Serum 3.6 g/dL (3.2-5.0); Alkaline Phosphatase 103 U/L (45-117); Bilirubin, Direct 0.18 mg/dL (0.00-0.30); Globulin 3.5 g/dL (2.2-4.2); Lipase 26 U/L (13-75); Protein, Total 7.1 g/dL (6.4-8.2)
[2024-06-08] MEDS: 0.9% Saline Lock 10 ML Syringe IV (15:51)
[2024-06-08] MEDS: 0.9% Normal Saline (1000mL) 1,000 ML 75 ML IV (15:51)
[2024-06-08 15:55] LABS: Troponin-I HS 96 pg/mL (3.0-78.0)
[2024-06-08 16:56] LABS: Hematocrit 30.7 % (40-54); Hemoglobin 9.8 g/dL (13.0-16.5); Mean Corp Hgb Conc 31.9 g/dL (32-36); Mean Corpuscular Hgb 27.1 pg (27.0-32.0); Mean Corpuscular Volume 84.8 fL (80-94); Mean Platelet Vol. 9.1 fl (6.2-12.0); Platelet Count 284 K/mm3 (150-450); RBC Distribution Width CV 18.8 % (11.6-14.6); RBC Distribution Width SD 57.6 fl (35.1-43.9); Red Blood Count 3.62 M/mm3 (4.6-6.2); White Blood Count 9.9 K/mm3 (4.4-11.0)
[2024-06-08 23:04] LABS: Absolute Lymphocyte Count 0.97 X10^3/uL (0.83-4.51); Absolute Neutrophil Count 5.5 X10^3/uL (2.0-7.7); Basophil# 0.01 X10^3/uL; Basophil% 0.1 % (0-1); Eosinophil# 0.09 X10^3/uL; Eosinophils% 1.3 % (0-5); Hematocrit 27.6 % (40-54); Hemoglobin 8.7 g/dL (13.0-16.5); Lymphocyte # 0.97 X10^3/ul (0.83-4.51); Lymphocyte % 13.5 % (19-41); Mean Corp Hgb Conc 31.5 g/dL (32-36); Mean Corpuscular Hgb 27.2 pg (27.0-32.0); Mean Corpuscular Volume 86.3 fL (80-94); Mean Platelet Vol. 9.1 fl (6.2-12.0); Monocyte# 0.58 X10^3/uL; Monocyte% 8.1 % (0-10); NRBC Flagged by Analyzer 0 % (0-5); Neutrophil # 5.51 X10^3/uL (2.7-7.7); Neutrophil % 76.6 % (47-70); Platelet Count 265 K/mm3 (150-450); RBC Distribution Width CV 18.9 % (11.6-14.6); RBC Distribution Width SD 58.9 fl (35.1-43.9); White Blood Count 7.2 K/mm3 (4.4-11.0)
[2024-06-09] VITALS (10 sets, daily range): BP systolic 148–158; BP diastolic 64–79; PULSE 68–78; RESP 16–18; TEMP 36.5–37; O2SAT 98–100
[2024-06-09 06:57] LABS: Absolute Neutrophil Count 4.2 X10^3/uL (2.0-7.7); Basophil# 0.02 X10^3/uL; Basophil% 0.3 % (0-1); Eosinophil# 0.21 X10^3/uL; Eosinophils% 3.2 % (0-5); Hematocrit 26.4 % (40-54); Hemoglobin 8.2 g/dL (13.0-16.5); Lymphocyte % 21.6 % (19-41); Mean Corp Hgb Conc 31.1 g/dL (32-36); Mean Corpuscular Hgb 26.8 pg (27.0-32.0); Mean Corpuscular Volume 86.3 fL (80-94); Mean Platelet Vol. 9.8 fl (6.2-12.0); Monocyte# 0.66 X10^3/uL; Monocyte% 10.2 % (0-10); NRBC Flagged by Analyzer 0 % (0-5); Neutrophil # 4.16 X10^3/uL (2.7-7.7); Neutrophil % 64.4 % (47-70); Platelet Count 262 K/mm3 (150-450); RBC Distribution Width CV 19.2 % (11.6-14.6); RBC Distribution Width SD 59.4 fl (35.1-43.9); Red Blood Count 3.06 M/mm3 (4.6-6.2); White Blood Count 6.5 K/mm3 (4.4-11.0)
[2024-06-09 07:28] LABS: ALB/GLOB Ratio 1.1 RATIO (0.9-2.4); AST(SGOT) 14 U/L (15-37); Alanine Aminotransfer ALT/SGPT 12 U/L (16-61); Albumin, Serum 2.9 g/dL (3.2-5.0); Alkaline Phosphatase 76 U/L (45-117); Anion Gap 5 (5-15); BUN 22 mg/dL (7-18); BUN/Creat Ratio 19.6 RATIO (10-20); Calcium,Total 7.9 mg/dL (8.5-10.1); Chloride 105 mmol/L (98-107); Creatinine, Serum 1.12 mg/dL (0.70-1.30); EST Glomerular Filtration Rate 67 mL/min (>60); Est Glom Filt Rate - Afr Amer 81 mL/min (>60); Estimated Creatinine Clearance 49.18 ml/min; Globulin 2.6 g/dL (2.2-4.2); Glucose 103 mg/dL (74-106); Magnesium 1.8 mg/dL (1.6-2.6); Potassium 3.9 mmol/L (3.5-5.1); Protein, Total 5.5 g/dL (6.4-8.2); Sodium Level 135 mmol/L (136-145)
--- NOTE | 2024-06-09 09:28 | PCM.PN.HOSP ---
Reason for Visit Reason for Visit: Diagnoses Syncope and collapse (06/08/24) Objective Data Objective Data Vital Signs: Vital Signs Temp Pulse Resp BP Pulse Ox O2 Del Method 98.0 F 68 18 151/68 H 100 Room Air 06/09/24 05:00 06/09/24 05:00 06/09/24 05:00 06/09/24 05:00 06/09/24 05:00 06/09/24 05:00 Oxygen Delivery Method Room Air Weight: 165 lb 9.074 oz Body Mass Index (BMI) 25.9 Intake & Output: Intake and Output for Last 24 Hours 06/07/24 06/08/24 06/09/24 23:59 23:59 23:59 Intake Total 1650 / 1650 Balance 1650 / 1650 Lab / Micro Data 06/09/24 05:38 06/09/24 05:38 Labs: Laboratory Results - last 24 hr 06/08/24 12:27: WBC 13.4 H, RBC 4.19 L, Hgb 11.1 L, Hct 35.8 L, MCV 85.4, MCH 26.5 L, MCHC 31.0 L, RDW Std Deviation 57.8 H, RDW Coeff of Deepika 18.9 H, Plt Count 372, MPV 9.8, Immature Gran % (Auto) 0.600, Neut % (Auto) 76.4 H, Lymph % (Auto) 14.5 L, Pinal % (Auto) 6.7, Eos % (Auto) 1.6, Baso % (Auto) 0.2, Absolute Neuts (auto) 10.2 H, Absolute Lymphs (auto) 1.94, Nucleated RBC % 0, Sodium 136, Potassium 3.8, Chloride 105, Carbon Dioxide 23.0, Anion Gap 8, BUN 22 H, Creatinine 1.21, Estim Creat Clear Calc 45.52, Est GFR (MDRD) Af Amer 74, Est GFR (MDRD) Non-Af 61, BUN/Creatinine Ratio 18.2, Glucose 127 H, Calcium 9.4, Total Bilirubin 0.60, Direct Bilirubin 0.18, AST 23, ALT 20, Alkaline Phosphatase 103, Troponin I High Sens 97 H, B-Natriuretic Peptide 109.8 H, Total Protein 7.1, Albumin 3.6, Globulin 3.5, Lipase 26 06/08/24 13:17: PT 14.3, INR 1.1 06/08/24 15:20: Troponin I High Sens 96 H 06/08/24 16:44: WBC 9.9, RBC 3.62 L, Hgb 9.8 L, Hct 30.7 L, MCV 84.8, MCH 27.1, MCHC 31.9 L, RDW Std Deviation 57.6 H, RDW Coeff of Deepika 18.8 H, Plt Count 284, MPV 9.1 06/08/24 20:50: WBC 7.2, RBC 3.20 L, Hgb 8.7 L, Hct 27.6 L, MCV 86.3, MCH 27.2, MCHC 31.5 L, RDW Std Deviation 58.9 H, RDW Coeff of Deepika 18.9 H, Plt Count 265, MPV 9.1, Immature Gran % (Auto) 0.400, Neut % (Auto) 76.6 H, Lymph % (Auto) 13.5 L, Pinal % (Auto) 8.1, Eos % (Auto) 1.3, Baso % (Auto) 0.1, Absolute Neuts (auto) 5.5, Absolute Lymphs (auto) 0.97, Nucleated RBC % 0 06/09/24 05:38: WBC 6.5, RBC 3.06 L, Hgb 8.2 L, Hct 26.4 L, MCV 86.3, MCH 26.8 L, MCHC 31.1 L, RDW Std Deviation 59.4 H, RDW Coeff of Deepika 19.2 H, Plt Count 262, MPV 9.8, Immature Gran % (Auto) 0.300, Neut % (Auto) 64.4, Lymph % (Auto) 21.6, Pinal % (Auto) 10.2 H, Eos % (Auto) 3.2, Baso % (Auto) 0.3, Absolute Neuts (auto) 4.2, Absolute Lymphs (auto) 1.40, Nucleated RBC % 0, Sodium 135 L, Potassium 3.9, Chloride 105, Carbon Dioxide 24.0, Anion Gap 5, BUN 22 H, Creatinine 1.12, Estim Creat Clear Calc 49.18, Est GFR (MDRD) Af Amer 81, Est GFR (MDRD) Non-Af 67, BUN/Creatinine Ratio 19.6, Glucose 103, Calcium 7.9 L, Magnesium 1.8, Total Bilirubin 0.60, AST 14 L, ALT 12 L, Alkaline Phosphatase 76, Total Protein 5.5 L, Albumin 2.9 L, Globulin 2.6, Albumin/Globulin Ratio 1.1 Radiography Diagnostic Testing: Radiology Impression Chest/Abdomen/Pelvis CTA 06/08/24 12:52 IMPRESSION: Small subcapsular hepatic hematoma. Small amount of perisplenic hematoma as well as fluid in the pelvis. The patient did have a liver biopsy earlier today. Electronically Signed: Daniel Espino MD at 13:21 EST , Chest X-Ray 06/08/24 13:10 IMPRESSION: No acute abnormality is seen. Electronically Signed: Daniel Espino MD at 13:26 EST , Physical Exam Narrative Seen and examined. Admitted yesterday after he had syncope. He had liver biopsy before that. Patient complained of some transient occasional gas pain. Moving his bowel. Physical exam General: Alert, Oriented x3, Cooperative HEENT: Atraumatic, PERRLA, EOMI, Normocephalic Oral: Oral mucosa moist no Gingival or Mucosal Lesions/ Ulcerations Neck: Supple, No JVD, Negative Carotid Bruits Chest wall/Lungs: Air entry diminished in bilateral lung bases. No crepitation/rhonchi Cardiovascular: Regular rate, Regular Rhythm, Normal S1, Normal S2, No M/G/R Abdomen: Bowel Sounds Present, Soft, Non Tender, Non-Distended. No tenderness around lower chest wall port site. : No dysuria. No renal angle tenderness. No suprapubic tenderness. Extremities: No edema, Capillary Refill Less than 3 Seconds Skin: No rashes, No breakdown Musculoskeletal: No Tenderness to Palpation of Joints or Extremities Neurological: Cranial nerves II-XII grossly intact, DTR 2+/4. No acute focal neurological deficit. Psych/Mental Status: Normal Affect, Appropriate. Assessment & Plan Assessment/Plan (1) Syncopal episodes: PLAN: Plan #Syncope: Patient admitted in PCU. -Suspect multifactorial with patient doubling up on blood pressure medication causing hypotension in the setting of moderate aortic stenosis and also having some post liver biopsy bleeding -Hemoglobin in the ED 11.1 -Patient presently normotensive -Hold scheduled antihypertensives today and add as needed to avoid significant hypertension -Patient was well-hydrated -EGK normal sinus rhythm with heart rate of 63, QTc 454, some nonspecific T wave changes. Orthostatic vitals in the morning -Had an echo less than 2 months ago which showed EF 70% with normal diastolic function and moderate aortic stenosis, do not feel repeat is necessary at this time Acute blood loss anemia on chronic and possible due to small subcapsular hematoma after liver biopsy: Hemoglobin baseline is around 11.4 g%. It dropped to 8.[address] abdomen shows small subcapsular liver hematoma and Small perisplenic hematoma. 2 troponins elevated therefore possible cardiac strain therefore 1 unit of PRBC ordered # Elevated troponin -Suspect this is secondary to patient's significant hypotension -Will trend -EKG normal sinus rhythm heart rate of 63 with a QTc of 454 and nonspecific T changes -After his syncopal episode he had some right lower what sounded to be chest wall discomfort that is since significantly improved 06/09: Troponin 9796 and 88 downward trending probably due to increased demand and pain. #Hx CAD -w/ hx of CABG 2018 -Patient refuses to take aspirin or statin, discussed these and patient adamantly against #Hx CVAs -Pt refuses statin and aspirin # Small subcapsular hepatic hematoma and small perisplenic hematoma: CTA chest abdomen pelvis reviewed. Shows small subcapsular hepatic hematoma and small amount of perisplenic hematoma. No focal tenderness around her right lower and left chest wall anteriorly posteriorly. -The finding was discussed with the patient and his at the bedside. Monitor H&H after 1 unit of PRBC transfusion # Hypertension -Holding antihypertensives as above # Colon cancer -Status post colectomy -Will need outpatient follow-up #DVT ppx: SCDs Laboratory Results 06/08/24 12:27: WBC 13.4 H, RBC 4.19 L, Hgb 11.1 L, Hct 35.8 L, MCV 85.4, MCH 26.5 L, MCHC 31.0 L, RDW Std Deviation 57.8 H, RDW Coeff of Deepika 18.9 H, Plt Count 372, MPV 9.8, Immature Gran % (Auto) 0.600, Neut % (Auto) 76.4 H, Lymph % (Auto) 14.5 L, Pinal % (Auto) 6.7, Eos % (Auto) 1.6, Baso % (Auto) 0.2, Absolute Neuts (auto) 10.2 H, Absolute Lymphs (auto) 1.94, Nucleated RBC % 0, Sodium 136, Potassium 3.8, Chloride 105, Carbon Dioxide 23.0, Anion Gap 8, BUN 22 H, Creatinine 1.21, Estim Creat Clear Calc 45.52, Est GFR (MDRD) Af Amer 74, Est GFR (MDRD) Non-Af 61, BUN/Creatinine Ratio 18.2, Glucose 127 H, Calcium 9.4, Total Bilirubin 0.60, Direct Bilirubin 0.18, AST 23, ALT 20, Alkaline Phosphatase 103, Troponin I High Sens 97 H, B-Natriuretic Peptide 109.8 H, Total Protein 7.1, Albumin 3.6, Globulin 3.5, Lipase 26 06/08/24 13:17: PT 14.3, INR 1.1 06/08/24 15:20: Troponin I High Sens 96 H 06/08/24 16:44: WBC 9.9, RBC 3.62 L, Hgb 9.8 L, Hct 30.7 L, MCV 84.8, MCH 27.1, MCHC 31.9 L, RDW Std Deviation 57.6 H, RDW Coeff of Deepika 18.8 H, Plt Count 284, MPV 9.1 06/08/24 20:50: WBC 7.2, RBC 3.20 L, Hgb 8.7 L, Hct 27.6 L, MCV 86.3, MCH 27.2, MCHC 31.5 L, RDW Std Deviation 58.9 H, RDW Coeff of Deepika 18.9 H, Plt Count 265, MPV 9.1, Immature Gran % (Auto) 0.400, Neut % (Auto) 76.6 H, Lymph % (Auto) 13.5 L, Pinal % (Auto) 8.1, Eos % (Auto) 1.3, Baso % (Auto) 0.1, Absolute Neuts (auto) 5.5, Absolute Lymphs (auto) 0.97, Nucleated RBC % 0 06/09/24 05:38: WBC 6.5, RBC 3.06 L, Hgb 8.2 L, Hct 26.4 L, MCV 86.3, MCH 26.8 L, MCHC 31.1 L, RDW Std Deviation 59.4 H, RDW Coeff of Deepika 19.2 H, Plt Count 262, MPV 9.8, Immature Gran % (Auto) 0.300, Neut % (Auto) 64.4, Lymph % (Auto) 21.6, Pinal % (Auto) 10.2 H, Eos % (Auto) 3.2, Baso % (Auto) 0.3, Absolute Neuts (auto) 4.2, Absolute Lymphs (auto) 1.40, Nucleated RBC % 0, Sodium 135 L, Potassium 3.9, Chloride 105, Carbon Dioxide 24.0, Anion Gap 5, BUN 22 H, Creatinine 1.12, Estim Creat Clear Calc 49.18, Est GFR (MDRD) Af Amer 81, Est GFR (MDRD) Non-Af 67, BUN/Creatinine Ratio 19.6, Glucose 103, Calcium 7.9 L, Magnesium 1.8, Total Bilirubin 0.60, AST 14 L, ALT 12 L, Alkaline Phosphatase 76, Total Protein 5.5 L, Albumin 2.9 L, Globulin 2.6, Albumin/Globulin Ratio 1.1 Charges/Coding Visit Charges Inpatient E&M: 80518 Subs Hosp L2
[2024-06-09 10:54] LABS: Troponin-I HS 88 pg/mL (3.0-78.0)
--- NOTE | 2024-06-09 11:15 | CASEMGMT ---
RN CM Face to Face with patient for initial transition planning/care coordination assessment. RN CM introduced self and role at [facility]. Patient lying in bed, alert and oriented. Patient willing to participate in assessment and is able to answer all questions appropriately. Care providers, pharmacy, and demographics verified. Strata:3 PCP: Shahram Specialists: none Preferred Pharmacy: [facility] Insurance: [facility] A Prescription Benefit: none Living Will/HPOA: yes, Radha Raymond LNOK: Living Arrangements: Patient lives with in a mobile home with 1 step to enter. Patient states he is independent at home. Transportation: son in law, daughter DME/HHC: Patient has grab bars at home. No previous HHC or SNF Patient wishes to discharge home, denies need for home health at this time. Patient states he has no further needs or concerns at this time. CM to follow for discharge planning needs that may arise. Disposition Plan: Patient to discharge home with family support and follow-up plans in place. Lanette CARROLL, RN, CM
[2024-06-09 15:18] LABS: Hematocrit 27.8 % (40-54)
[2024-06-10 03:23] VITALS: BP 158/70; PULSE 67; RESP 16; TEMP 36.6; O2SAT 98
[2024-06-10 08:48] VITALS: BP 174/76; PULSE 66; RESP 15; TEMP 36.8; O2SAT 90
[2024-06-10 10:00] VITALS: BP 181/87; BP 198/80; BP 207/73; PULSE 70; PULSE 73; PULSE 78
--- NOTE | 2024-06-10 10:11 | PCM.PN.HOSP ---
Reason for Visit Reason for Visit: Diagnoses Syncope and collapse (06/08/24) Objective Data Objective Data Vital Signs: Vital Signs Temp Pulse Resp BP Pulse Ox O2 Del Method 98.3 F 66 15 174/76 H 90 Room Air 06/10/24 08:48 06/10/24 08:48 06/10/24 08:48 06/10/24 08:48 06/10/24 08:48 06/10/24 08:48 Oxygen Delivery Method Room Air Weight: 165 lb 9.074 oz Body Mass Index (BMI) 25.9 Intake & Output: Intake and Output for Last 24 Hours 06/08/24 06/09/24 06/10/24 23:59 23:59 23:59 Intake Total 2850 / 2850 Balance 2850 / 2850 Lab / Micro Data 06/09/24 15:04 06/09/24 05:38 Labs: Laboratory Results - last 24 hr 06/09/24 09:54: Troponin I High Sens 88 H, Blood Type O POSITIVE, Antibody Screen NEGATIVE, Crossmatch See Detail 06/09/24 15:04: Hgb 9.0 L, Hct 27.8 L Physical Exam Narrative Seen and examined. Admitted yesterday after he had syncope. He had liver biopsy before that. Patient complained of some transient occasional gas pain. Moving his bowel. Physical exam General: Alert, Oriented x3, Cooperative HEENT: Atraumatic, PERRLA, EOMI, Normocephalic Oral: Oral mucosa moist no Gingival or Mucosal Lesions/ Ulcerations Neck: Supple, No JVD, Negative Carotid Bruits Chest wall/Lungs: Air entry diminished in bilateral lung bases. No crepitation/rhonchi Cardiovascular: Regular rate, Regular Rhythm, Normal S1, Normal S2, No M/G/R Abdomen: Bowel Sounds Present, Soft, Non Tender, Non-Distended. No tenderness around lower chest wall port site. : No dysuria. No renal angle tenderness. No suprapubic tenderness. Extremities: No edema, Capillary Refill Less than 3 Seconds Skin: No rashes, No breakdown Musculoskeletal: No Tenderness to Palpation of Joints or Extremities Neurological: Cranial nerves II-XII grossly intact, DTR 2+/4. No acute focal neurological deficit. Psych/Mental Status: Normal Affect, Appropriate. Assessment & Plan Assessment/Plan (1) Syncopal episodes: PLAN: Plan #Syncope: Patient admitted in PCU. -Suspect multifactorial with patient doubling up on blood pressure medication causing hypotension in the setting of moderate aortic stenosis and also having some post liver biopsy bleeding -Hemoglobin in the ED 11.1 -Patient presently normotensive -Hold scheduled antihypertensives today and add as needed to avoid significant hypertension -Patient was well-hydrated -EGK normal sinus rhythm with heart rate of 63, QTc 454, some nonspecific T wave changes. Orthostatic vitals in the morning -Had an echo less than 2 months ago which showed EF 70% with normal diastolic function and moderate aortic stenosis, do not feel repeat is necessary at this time Acute blood loss anemia on chronic and possible due to small subcapsular hematoma after liver biopsy: Hemoglobin baseline is around 11.4 g%. It dropped to 8.[address] abdomen shows small subcapsular liver hematoma and Small perisplenic hematoma. 2 troponins elevated therefore possible cardiac strain therefore 1 unit of PRBC ordered # Elevated troponin -Suspect this is secondary to patient's significant hypotension -Will trend -EKG normal sinus rhythm heart rate of 63 with a QTc of 454 and nonspecific T changes -After his syncopal episode he had some right lower what sounded to be chest wall discomfort that is since significantly improved 06/09: Troponin 9796 and 88 downward trending probably due to increased demand and pain. #Hx CAD -w/ hx of CABG 2018 -Patient refuses to take aspirin or statin, discussed these and patient adamantly against #Hx CVAs -Pt refuses statin and aspirin # Small subcapsular hepatic hematoma and small perisplenic hematoma: CTA chest abdomen pelvis reviewed. Shows small subcapsular hepatic hematoma and small amount of perisplenic hematoma. No focal tenderness around her right lower and left chest wall anteriorly posteriorly. -The finding was discussed with the patient and his at the bedside. Monitor H&H after 1 unit of PRBC transfusion # Hypertension -Holding antihypertensives as above # Colon cancer -Status post colectomy -Will need outpatient follow-up #DVT ppx: SCDs Laboratory Results 06/08/24 12:27: WBC 13.4 H, RBC 4.19 L, Hgb 11.1 L, Hct 35.8 L, MCV 85.4, MCH 26.5 L, MCHC 31.0 L, RDW Std Deviation 57.8 H, RDW Coeff of Deepika 18.9 H, Plt Count 372, MPV 9.8, Immature Gran % (Auto) 0.600, Neut % (Auto) 76.4 H, Lymph % (Auto) 14.5 L, [place] % (Auto) 6.7, Eos % (Auto) 1.6, Baso % (Auto) 0.2, Absolute Neuts (auto) 10.2 H, Absolute Lymphs (auto) 1.94, Nucleated RBC % 0, Sodium 136, Potassium 3.8, Chloride 105, Carbon Dioxide 23.0, Anion Gap 8, BUN 22 H, Creatinine 1.21, Estim Creat Clear Calc 45.52, Est GFR (MDRD) Af Amer 74, Est GFR (MDRD) Non-Af 61, BUN/Creatinine Ratio 18.2, Glucose 127 H, Calcium 9.4, Total Bilirubin 0.60, Direct Bilirubin 0.18, AST 23, ALT 20, Alkaline Phosphatase 103, Troponin I High Sens 97 H, B-Natriuretic Peptide 109.8 H, Total Protein 7.1, Albumin 3.6, Globulin 3.5, Lipase 26 06/08/24 13:17: PT 14.3, INR 1.1 06/08/24 15:20: Troponin I High Sens 96 H 06/08/24 16:44: WBC 9.9, RBC 3.62 L, Hgb 9.8 L, Hct 30.7 L, MCV 84.8, MCH 27.1, MCHC 31.9 L, RDW Std Deviation 57.6 H, RDW Coeff of Deepika 18.8 H, Plt Count 284, MPV 9.1 06/08/24 20:50: WBC 7.2, RBC 3.20 L, Hgb 8.7 L, Hct 27.6 L, MCV 86.3, MCH 27.2, MCHC 31.5 L, RDW Std Deviation 58.9 H, RDW Coeff of Deepika 18.9 H, Plt Count 265, MPV 9.1, Immature Gran % (Auto) 0.400, Neut % (Auto) 76.6 H, Lymph % (Auto) 13.5 L, [place] % (Auto) 8.1, Eos % (Auto) 1.3, Baso % (Auto) 0.1, Absolute Neuts (auto) 5.5, Absolute Lymphs (auto) 0.97, Nucleated RBC % 0 06/09/24 05:38: WBC 6.5, RBC 3.06 L, Hgb 8.2 L, Hct 26.4 L, MCV 86.3, MCH 26.8 L, MCHC 31.1 L, RDW Std Deviation 59.4 H, RDW Coeff of Deepika 19.2 H, Plt Count 262, MPV 9.8, Immature Gran % (Auto) 0.300, Neut % (Auto) 64.4, Lymph % (Auto) 21.6, [place] % (Auto) 10.2 H, Eos % (Auto) 3.2, Baso % (Auto) 0.3, Absolute Neuts (auto) 4.2, Absolute Lymphs (auto) 1.40, Nucleated RBC % 0, Sodium 135 L, Potassium 3.9, Chloride 105, Carbon Dioxide 24.0, Anion Gap 5, BUN 22 H, Creatinine 1.12, Estim Creat Clear Calc 49.18, Est GFR (MDRD) Af Amer 81, Est GFR (MDRD) Non-Af 67, BUN/Creatinine Ratio 19.6, Glucose 103, Calcium 7.9 L, Magnesium 1.8, Total Bilirubin 0.60, AST 14 L, ALT 12 L, Alkaline Phosphatase 76, Total Protein 5.5 L, Albumin 2.9 L, Globulin 2.6, Albumin/Globulin Ratio 1.1
[2024-06-10 10:18] VITALS: BP 172/82; PULSE 66; RESP 15; TEMP 36.8; O2SAT 100
[2024-06-10 10:56] LABS: Anion Gap 4 (5-15); BUN 19 mg/dL (7-18); Calcium,Total 8.7 mg/dL (8.5-10.1); Chloride 108 mmol/L (98-107); Creatinine, Serum 1.12 mg/dL (0.70-1.30); EST Glomerular Filtration Rate 67 mL/min (>60); Est Glom Filt Rate - Afr Amer 81 mL/min (>60); Estimated Creatinine Clearance 49.18 ml/min; Glucose 100 mg/dL (74-106); Potassium 4.2 mmol/L (3.5-5.1); Sodium Level 138 mmol/L (136-145)
[2024-06-10 10:59] LABS: Absolute Lymphocyte Count 1.57 X10^3/uL (0.83-4.51); Absolute Neutrophil Count 3.5 X10^3/uL (2.0-7.7); Basophil# 0.01 X10^3/uL; Basophil% 0.2 % (0-1); Eosinophil# 0.24 X10^3/uL; Eosinophils% 3.9 % (0-5); Hematocrit 32.1 % (40-54); Hemoglobin 10.2 g/dL (13.0-16.5); Lymphocyte # 1.57 X10^3/ul (0.83-4.51); Lymphocyte % 25.7 % (19-41); Mean Corp Hgb Conc 31.8 g/dL (32-36); Mean Corpuscular Hgb 27.1 pg (27.0-32.0); Mean Corpuscular Volume 85.4 fL (80-94); Mean Platelet Vol. 9.6 fl (6.2-12.0); Monocyte# 0.76 X10^3/uL; Monocyte% 12.4 % (0-10); NRBC Flagged by Analyzer 0 % (0-5); Neutrophil # 3.52 X10^3/uL (2.7-7.7); Neutrophil % 57.5 % (47-70); Platelet Count 275 K/mm3 (150-450); RBC Distribution Width CV 18.6 % (11.6-14.6); Red Blood Count 3.76 M/mm3 (4.6-6.2); White Blood Count 6.1 K/mm3 (4.4-11.0)
--- NOTE | 2024-06-10 11:15 | PCM.DC ---
Discharge Instructions Diet Discharge Diet: No restrictions Activity Discharge Activity: Return to Normal Activity Weight Bearing Status: Weight bearing as tolerated Dressing / Incision Call your doctor if you observe: Fever of 101 or Higher, Coldness, Increased Pain, Numbness or Tingling, Change in Color, Inability to urinate, Inability to have a bowel movement, Shortness of breath, Dizziness, Fainting spells, Swelling in the ankles, Chest pain, Prolonged hiccupping, Increased palpitations (irregular heartbeat) and Calf discomfort Follow Up Care When: IN 2 WEEKS Test Results: Test results from this visit will be discussed in further detail at your follow-up appointment, if applicable. Discharge Plan Admission Admit Date/Time: 06/08/24 15:11 Primary Reason for Your Visit: Syncope after liver biopsy. Mild perihepatic hematoma. Acute blood loss a Attending Provider: Mike Story Primary Care Provider: Tami Omalley Consulting Providers: Lucy Polanco Discharge Orders/Prescriptions Prescriptions: Continued metoprolol tartrate 25 mg tablet 25 mg PO BID Qty: 60 3RF Patient Comments: when bp is 120 or below, pt doesnt take at all, if 120-140, pt takes 1 qd, if bp is 150+ pt takes 1 bid amlodipine 5 mg tablet 5 mg PO DAILY Patient Comments: took 10mg this am potassium chloride 10 mEq tablet extended release 10 meq PO BID Patient Comments: pt states he takes sometimes clonidine HCl 0.1 mg tablet 0.1 mg PO DAILY PRN (Reason: hbp) Patient Comments: pt states he only takes if bp is over 200+ Changed ferrous sulfate [Iron (ferrous sulfate)] 325 mg (65 mg iron) tablet 325 mg PO DAILY 30 Days Qty: 60 5RF Referrals / Follow Up: Tami Omalley, P[employer]ER PRODUCTION ENGINEER-C [Primary Care Provider] - Disposition Disposition (needs filled in before D/C Order can be placed): Home, Self Care
[2024-06-10 14:15] VITALS: BP 175/77; PULSE 77; RESP 15; TEMP 36.5; O2SAT 100
--- NOTE | 2024-06-10 14:15 | PCM.DC.SUM ---
Providers Date of Admission: 06/08/24 Date of Discharge: 06/10/24 Primary Care Physician: Tami Omalley, MARYAM Reason For Visit: SYNCOPE Diagnosis Discharge Diagnosis (1) Syncopal episodes: Status: Acute Code(s): R55 - Syncope and collapse Plan 79-year-old gentleman was admitted after he passed out. He had a liver biopsy just before that. Rapid response was called and patient blood pressure got better and then transferred to ED from where he was admitted to PCU. #Syncope most likely due to hypotension from acute blood loss anemia after liver biopsy: Patient admitted in PCU. -Suspect multifactorial with patient doubling up on blood pressure medication causing hypotension in the setting of moderate aortic stenosis and also having some post liver biopsy bleeding -Hemoglobin in the ED 11.1 which dropped to 8.2 g. Patient was transfused 1 unit of PRBC. On 06/10: Repeat hemoglobin is 10.2 g. Patient is normotensive. Advised to hold blood pressure medication if SBP less than 130 mmHg. Patient is well-hydrated -EGK normal sinus rhythm with heart rate of 63, QTc 454, some nonspecific T wave changes. Orthostatic vitals in the morning -Had an echo less than 2 months ago which showed EF 70% with normal diastolic function and moderate aortic stenosis, do not feel repeat is necessary at this time Acute blood loss anemia on chronic and possible due to small subcapsular hematoma after liver biopsy: Hemoglobin baseline is around 11.4 g%. It dropped to 8.[address] abdomen shows small subcapsular liver hematoma and Small perisplenic hematoma. 2 troponins elevated therefore possible cardiac strain therefore 1 unit of PRBC ordered 04/10: Hemoglobin 10.2 as mentioned above. Patient wants to go home therefore discharge # Elevated troponin -Suspect this is secondary to patient's significant hypotension -Will trend -EKG normal sinus rhythm heart rate of 63 with a QTc of 454 and nonspecific T changes -After his syncopal episode he had some right lower what sounded to be chest wall discomfort that is since significantly improved 06/09: Troponin 9796 and 88 downward trending probably due to increased demand and pain. #Hx CAD -w/ hx of CABG 2018 -Patient refuses to take aspirin or statin, discussed these and patient adamantly against #Hx CVAs -Pt refuses statin and aspirin # Small subcapsular hepatic hematoma and small perisplenic hematoma: CTA chest abdomen pelvis reviewed. Shows small subcapsular hepatic hematoma and small amount of perisplenic hematoma. No focal tenderness around her right lower and left chest wall anteriorly posteriorly. -The finding was discussed with the patient and his at the bedside. Monitor H&H after 1 unit of PRBC transfusion # Hypertension -Holding antihypertensives as above # Colon cancer -Status post colectomy -Will need outpatient follow-up #DVT ppx: SCDs Discharge medication reconciliation done. Discharge follow-up instructions completed. Discharge process discussed with the patient and all questions were answered to patient's satisfaction. Follow with PCP in 1 to 2 weeks Total time spent, exact 35 minutes on discharge meds reconciliation, examination, coordination of care with nurses and ancillary staff, review of imaging and blood test and discussion with the patient on follow-up instructions. Laboratory Results 06/09/24 09:54: Crossmatch See Detail 06/09/24 15:04: Hgb 9.0 L, Hct 27.8 L 06/10/24 10:30: WBC 6.1, RBC 3.76 L, Hgb 10.2 L, Hct 32.1 L, MCV 85.4, MCH 27.1, MCHC 31.8 L, RDW Std Deviation 58.0 H, RDW Coeff of Deepika 18.6 H, Plt Count 275, MPV 9.6, Immature Gran % (Auto) 0.300, Neut % (Auto) 57.5, Lymph % (Auto) 25.7, [place] % (Auto) 12.4 H, Eos % (Auto) 3.9, Baso % (Auto) 0.2, Absolute Neuts (auto) 3.5, Absolute Lymphs (auto) 1.57, Nucleated RBC % 0, Sodium 138, Potassium 4.2, Chloride 108 H, Carbon Dioxide 26.0, Anion Gap 4 L, BUN 19 H, Creatinine 1.12, Estim Creat Clear Calc 49.18, Est GFR (MDRD) Af Amer 81, Est GFR (MDRD) Non-Af 67, BUN/Creatinine Ratio 17.0, Glucose 100, Calcium 8.7 Medications at Discharge Home Medications metoprolol tartrate 25 mg tablet 25 mg PO BID BP #60 tabs 04/25/24 amlodipine 5 mg tablet 5 mg PO DAILY HEART 05/16/24 clonidine HCl 0.1 mg tablet 0.1 mg PO DAILY PRN hbp 06/08/24 potassium chloride 10 mEq tablet,extended release 10 meq PO BID 06/08/24 ferrous sulfate 325 mg (65 mg iron) tablet (Iron (ferrous sulfate)) 325 mg PO DAILY 30 days #60 tabs 06/10/24 Physical Exam Narrative Seen and examined. Denies right or left upper quadrant and lower chest wall pain. Patient moved his bowel. Sometimes he has constipation. He complained of mild irritation in lower abdomen which is not abdominal pain or pressure. He had bowel movement today. Physical exam General: Alert, Oriented x3, Cooperative HEENT: Atraumatic, PERRLA, EOMI, Normocephalic Oral: Oral mucosa moist no Gingival or Mucosal Lesions/ Ulcerations Neck: Supple, No JVD, Negative Carotid Bruits Chest wall/Lungs: Air entry diminished in bilateral lung bases. No crepitation/rhonchi Cardiovascular: Regular rate, Regular Rhythm, Normal S1, Normal S2, No M/G/R Abdomen: Bowel Sounds Present, Soft, Non Tender, Non-Distended. No tenderness around lower chest wall port site. : No dysuria. No renal angle tenderness. No suprapubic tenderness. Extremities: No edema, Capillary Refill Less than 3 Seconds Skin: No rashes, No breakdown Musculoskeletal: No Tenderness to Palpation of Joints or Extremities Neurological: Cranial nerves II-XII grossly intact, DTR 2+/4. No acute focal neurological deficit. Psych/Mental Status: Normal Affect, Appropriate. Weight / BMI Weight Weight: 165 lb 9.074 oz Body Mass Index (BMI) 25.9 ABG / Lab / Microbiology Data 06/10/24 10:30 06/10/24 10:30 Laboratory: Laboratory Results - last 24 hr 06/09/24 09:54: Crossmatch See Detail 06/09/24 15:04: Hgb 9.0 L, Hct 27.8 L 06/10/24 10:30: WBC 6.1, RBC 3.76 L, Hgb 10.2 L, Hct 32.1 L, MCV 85.4, MCH 27.1, MCHC 31.8 L, RDW Std Deviation 58.0 H, RDW Coeff of Deepika 18.6 H, Plt Count 275, MPV 9.6, Immature Gran % (Auto) 0.300, Neut % (Auto) 57.5, Lymph % (Auto) 25.7, [place] % (Auto) 12.4 H, Eos % (Auto) 3.9, Baso % (Auto) 0.2, Absolute Neuts (auto) 3.5, Absolute Lymphs (auto) 1.57, Nucleated RBC % 0, Sodium 138, Potassium 4.2, Chloride 108 H, Carbon Dioxide 26.0, Anion Gap 4 L, BUN 19 H, Creatinine 1.12, Estim Creat Clear Calc 49.18, Est GFR (MDRD) Af Amer 81, Est GFR (MDRD) Non-Af 67, BUN/Creatinine Ratio 17.0, Glucose 100, Calcium 8.7 D/C Instructions Discharge Diet: No restrictions Weight Bearing Status: Weight bearing as tolerated Call your doctor if you observe: Fever of 101 or Higher, Coldness, Increased Pain, Numbness or Tingling, Change in Color, Inability to urinate, Inability to have a bowel movement, Shortness of breath, Dizziness, Fainting spells, Swelling in the ankles, Chest pain, Prolonged hiccupping, Increased palpitations (irregular heartbeat) and Calf discomfort When: IN 2 WEEKS Meaningful Use Info Meaningful Use Meaningful Use Diagnoses (Choose all that apply): None applicable Ischemic Stroke Statin Dosing Therapy Reference: STATIN DOSE THERAPY REFERENCE: * Patients > 75 years receive moderate or high dose statin therapy. * Patients 75 years or YOUNGER should receive HIGH intensity statin dose unless contraindicated. You will be required to document reason for non-treatment if statin daily dose does not meet guidelines. HIGH DOSE STATIN THERAPY DAILY Atorvastatin > than or = to 40 mg Rosuvastatin > than or = to 20 mg Amlodipine + Atorvastatin > than or = to 2.5/40 mg Ezetimibe + Simvastatin 10/80 mg Simvastatin 80mg Discharge Plan Admission Admit Date/Time: 06/08/24 15:11 Primary Reason for Your Visit: Syncope after liver biopsy. Mild perihepatic hematoma. Acute blood loss a Attending Provider: Mike Story Primary Care Provider: Tami Omalley Consulting Providers: Lucy Polanco Discharge Orders/Prescriptions Prescriptions: Continued metoprolol tartrate 25 mg tablet 25 mg PO BID Qty: 60 3RF Patient Comments: when bp is 120 or below, pt doesnt take at all, if 120-140, pt takes 1 qd, if bp is 150+ pt takes 1 bid amlodipine 5 mg tablet 5 mg PO DAILY Patient Comments: took 10mg this am potassium chloride 10 mEq tablet extended release 10 meq PO BID Patient Comments: pt states he takes sometimes clonidine HCl 0.1 mg tablet 0.1 mg PO DAILY PRN (Reason: hbp) Patient Comments: pt states he only takes if bp is over 200+ Changed ferrous sulfate [Iron (ferrous sulfate)] 325 mg (65 mg iron) tablet 325 mg PO DAILY 30 Days Qty: 60 5RF Referrals / Follow Up: Tami Omalley, [employer]PECTING DISPATCHER-C [Primary Care Provider] - Disposition Disposition (needs filled in before D/C Order can be placed): Home, Self Care Charges/Coding Visit Charges Inpatient E&M: 46130 Disch Hosp >30min
== END 2024-06-10 16:10 | disposition home or self-care (01) | DRG 394 ==
LOC: ED 14:23 → PCU 19:12
PROVIDERS: Nurse Practitioner; Admitting Provider Internal Medicine; Emergency Provider Surgery; PCP Nurse Practitioner Family; Visit Provider Internal Medicine
DX: K91.89 Other postprocedural complications and disorders of digestive system (principal); D62 Acute posthemorrhagic anemia; S36.029A Unspecified contusion of spleen, initial encounter; K91.871 Postprocedural hematoma of a digestive system organ or structure following other procedure; C18.9 Malignant neoplasm of colon, unspecified; S36.112A Contusion of liver, initial encounter; K21.9 Gastro-esophageal reflux disease without esophagitis; I10 Essential (primary) hypertension; I35.0 Nonrheumatic aortic (valve) stenosis; I95.9 Hypotension, unspecified; I25.10 Atherosclerotic heart disease of native coronary artery without angina pectoris; M19.90 Unspecified osteoarthritis, unspecified site; R55 Syncope and collapse; Z87.891 Personal history of nicotine dependence; Z98.890 Other specified postprocedural states; Z86.73 Personal history of transient ischemic attack (TIA), and cerebral infarction without residual deficits; Z90.49 Acquired absence of other specified parts of digestive tract; Z95.1 Presence of aortocoronary bypass graft; Y84.9 Medical procedure, unspecified as the cause of abnormal reaction of the patient, or of later complication, without mention of misadventure at the time of the procedure
CPT/HCPCS: 36415; 71045; 71275; 74174; 80048; 80053; 80076; 83690; 83735; 83880; 84484; 85014; 85018; 85025; 85027; 85610; 86850; 86900; 86901; 86920; 86922; 93005; 99285; P9016; Q9967; A4216

== ENCOUNTER → 2024-06-08 | Outpatient (CLI) | payer SELFPAY ==
[2024-06-08] VITALS (21 sets, daily range): BP systolic 131–227; BP diastolic 39–131; PULSE 53–61; RESP 12–16; TEMP 36.4; O2SAT 94–100; BMI 26.6
[2024-06-08 07:27] LABS: Absolute Neutrophil Count 4.2 X10^3/uL (2.0-7.7); Basophil# 0.03 X10^3/uL; Basophil% 0.4 % (0-1); Eosinophil# 0.34 X10^3/uL; Eosinophils% 4.9 % (0-5); Hematocrit 36.2 % (40-54); Hemoglobin 11.4 g/dL (13.0-16.5); Lymphocyte % 21.6 % (19-41); Mean Corp Hgb Conc 31.5 g/dL (32-36); Mean Corpuscular Hgb 26.8 pg (27.0-32.0); Mean Corpuscular Volume 85.2 fL (80-94); Mean Platelet Vol. 9.5 fl (6.2-12.0); Monocyte# 0.82 X10^3/uL; Monocyte% 11.8 % (0-10); NRBC Flagged by Analyzer 0 % (0-5); Neutrophil # 4.21 X10^3/uL (2.7-7.7); Neutrophil % 60.9 % (47-70); Platelet Count 344 K/mm3 (150-450); RBC Distribution Width CV 18.9 % (11.6-14.6); RBC Distribution Width SD 57.6 fl (35.1-43.9); Red Blood Count 4.25 M/mm3 (4.6-6.2); White Blood Count 6.9 K/mm3 (4.4-11.0)
[2024-06-08 08:31] LABS: International Normalized Ratio 1.1; Prothrombin Time (Protime)PT. 13.9 SECONDS (11.7-14.9)
[2024-06-08 08:32] LABS: Partial Thromboplast Time 32.9 Seconds (24.1-36.2)
[2024-06-08] MEDS: Midazolam 2 MG/2 ML Syringe IV (09:18)
[2024-06-08] MEDS: fentaNYL 100 MCG/2 ML Ampul IV (09:20)
[2024-06-08] MEDS: Lidocaine 2% (20 ml mdv) 20 ML Vial INFILT (09:25)
[2024-06-08] MEDS: Ketorolac 15 MG/ML Vial IV (10:44)
== END | disposition home or self-care (01) ==
PROVIDERS: Radiology Diagnostic Radiology; PCP Nurse Practitioner Family; Referring Provider Internal Medicine Medical Oncology; Visit Provider Internal Medicine Medical Oncology
DX: Z01.818 Encounter for other preprocedural examination (principal); C77.2 Secondary and unspecified malignant neoplasm of intra-abdominal lymph nodes; C18.9 Malignant neoplasm of colon, unspecified; R16.0 Hepatomegaly, not elsewhere classified; R93.89 Abnormal findings on diagnostic imaging of other specified body structures
CPT/HCPCS: 47000; 36415; 77012; 85025; 85610; 85730; 88172; 88305; 88307; 88312; 88313; 99156; A4216

== ENCOUNTER 2024-06-20 13:25 | Outpatient (CLI) | payer SELFPAY ==
[2024-06-18 14:03] LABS: Absolute Neutrophil Count 5.3 X10^3/uL (2.0-7.7); Basophil# 0.02 X10^3/uL; Basophil% 0.3 % (0-1); Eosinophil# 0.14 X10^3/uL; Eosinophils% 1.8 % (0-5); Hematocrit 36.1 % (40-54); Hemoglobin 11.3 g/dL (13.0-16.5); Lymphocyte % 19.5 % (19-41); Mean Corp Hgb Conc 31.3 g/dL (32-36); Mean Corpuscular Volume 86.4 fL (80-94); Mean Platelet Vol. 9.3 fl (6.2-12.0); Monocyte# 0.71 X10^3/uL; Monocyte% 9.2 % (0-10); NRBC Flagged by Analyzer 0 % (0-5); Neutrophil # 5.29 X10^3/uL (2.7-7.7); Neutrophil % 68.8 % (47-70); Platelet Count 294 K/mm3 (150-450); RBC Distribution Width SD 57.7 fl (35.1-43.9); Red Blood Count 4.18 M/mm3 (4.6-6.2); White Blood Count 7.7 K/mm3 (4.4-11.0)
== END 2024-06-20 23:00 | disposition home or self-care (01) ==
PROVIDERS: PCP Nurse Practitioner Family; Referring Provider Nurse Practitioner Family; Visit Provider Surgery
DX: K92.1 Melena (principal)
CPT/HCPCS: 36415; 85025

== ENCOUNTER 2024-06-22 09:48 | Day surgery (SDC) | payer SELFPAY ==
--- NOTE | 2024-06-18 13:11 | PCM.HP.STD ---
[facility] - General General Date of Service: 06/22/24 HPI Narrative The patient is an 79-year-old male who initially presented to the pulmonary medicine office on June 12 in referral for the evaluation of PET positive mediastinal adenopathy. The patient initially presented to the hospital emergency department in April 2024 with hematochezia. Subsequent workup, including CT imaging of the abdomen and pelvis demonstrated a mass in the ascending colon. Colonoscopy was completed along with follow-up laparoscopic right hemicolectomy at the end of April 2024, with pathology demonstrating invasive adenocarcinoma. Pet imaging completed on May 29, 2024 demonstrated increased uptake in the subcarinal and right hilar lymph node regions. The patient was evaluated by oncology on May 31 and referred to our office to be evaluated for possible EBUS to facilitate mediastinal lymph node sampling and of the aforementioned PET positive lesions. The patient reported that he previously used to smoke small cigars, but has been abstinent from smoking for approximately 1.5 years. He has never been evaluated by a data migration lead previously, nor has he ever been diagnosed with any pulmonary related conditions. The patient appears to have just been hospitalized June 08 with syncope. The etiology for his syncope was felt to be secondary to hypotension following acute blood loss anemia after liver biopsy. The patient was transfused packed red blood cells with improvement in his hemoglobin to 10.2 g/dL at discharge. 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 Chronic hypertension Acute alteration in mental status Neuropathy Vasectomy planned Hyponatremia TIA (transient ischemic attack) CVA (cerebral vascular accident) Hypertension History of stroke Tobacco use Benign essential hypertension Home Medications ?Medication ?Instructions ?Recorded ?Last Taken ?Type metoprolol tartrate 25 mg tablet 25 mg PO BID BP #60 tabs 04/25/24 06/08/24 Rx amlodipine 5 mg tablet 5 mg PO DAILY HEART 05/16/24 06/08/24 History clonidine HCl 0.1 mg tablet 0.1 mg PO DAILY PRN hbp 06/08/24 Unknown History potassium chloride 10 mEq 10 meq PO BID 06/08/24 Unknown History tablet,extended release ferrous sulfate 325 mg (65 mg 325 mg PO DAILY 30 days #60 tabs 06/10/24 06/07/24 Rx iron) tablet (Iron (ferrous sulfate)) Allergy/AdvReac Type Severity Reaction Status Date / Time No Known Allergies Allergy Verified 06/13/24 10:54 Family History Father Arthritis Alcohol abuse Mother Alcohol abuse Liver disease Surgical History (Updated 06/15/24 @ 00:02 by Lb Russo) History of hemicolectomy (04/25/24) H/O vasectomy S/P right hemicolectomy History of tonsillectomy History of appendectomy 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) Social History Smoking Status: Former smoker alcohol intake: never substance use type: does not use Physical Exam Const alert and no apparent distress General Appearance: cooperative HEENT normocephalic and head/scalp atraumatic Eyes PERRL and EOMs intact bilaterally Neck supple General: trachea midline Resp normal respiratory effort Auscultation: Negative for rales, rhonchi or wheezes Cardio regular rate and regular rhythm GI normal to inspection, nondistended, normoactive bowel sounds Extremity no clubbing, cyanosis or edema Skin General Skin Exam: no breakdown Neuro CN's II-XII intact bilaterally and no focal motor deficits Psych thought process normal, cooperative and affect normal Assessment & Plan Assessment/Plan (1) Mediastinal lymphadenopathy: PLAN: The patient was recently diagnosed with metastatic colon cancer. He recently completed a PET scan at the end of May 2024 which demonstrated hypermetabolic activity in the subcarinal and right hilar lymph node stations. Therefore, the patient was referred to our office to be evaluated for possible EBUS to facilitate mediastinal lymph node sampling of the aforementioned hypermetabolic lesions. The patient is not currently on any form of systemic anticoagulation. The risks and benefits of proceeding with bronchoscopy was discussed with the patient today at length. He is in agreement to proceed.
[2024-06-22] VITALS (12 sets, daily range): BP systolic 130–154; BP diastolic 65–87; PULSE 56–63; RESP 17–22; TEMP 36.3–36.6; O2SAT 94–100; BMI 26.2
--- NOTE | 2024-06-22 | ASPIG_PTH ---
PATIENT: JARED PEREZ LOC: EN U#:[id number] AGE/SX: 79/M ROOM: RE06/22/[address]: Dr. Sunny Mancia DO : 1945 BED: DIS: 06/22/2024 SPEC #: [id number] RECD: 06/22/24 13:47 STATUS: SCOTT REQ #: [id number] MATTHEW: 06/22/24 00:[address]: Sunny Mancia DEPT: CYTOLOGY RECD BY: Shilpa Lees ENTERED: 06/22/24 13:49 SP TYPE: ASP OUT OTHR DR: MD Tami Rosas, FIRESTOPPER TECHNICIAN-C Tissues: A - Lung, NOS B - Lung, NOS C - Lung, NOS D - Lung, NOS E - Lung, NOS F - Lung, NOS G - Lung, NOS H - Lung, NOS Procedures: FNA Specimen Adequacy Surgery Specimen Level IV Cytology Other HEADER OPERATION: Bronchoscopy/EBUS PRE-OP DIAGNOSIS: PET scan- positive TISSUE SUBMITTED: A-H- EBUS DIAGNOSIS CYTOLOGY A. EBUS, TBNA, site 10 R #1 (smears): Negative for malignant cells. See comment. B. EBUS, TBNA, site 10 R #2 (smears): Negative for malignant cells. See comment. C. EBUS, TBNA, site 10 R #3 (smears): Negative for malignant cells. See comment. D. EBUS, TBNA , site 7 #4 (smears): Adequate for evaluation. Negative for malignant cells. E. EBUS, TBNA, site 7 #5 (smears): Adequate for evaluation. Negative for malignant cells. F. EBUS, TBNA, site 7 #6 (smears): Rare atypical epithelial cells present. G. EBUS, TBNA, site 10 R (cellblock): Mildly atypical glandular cells present. See comment. H. EBUS, TBNA, site 7 (cellblock): Mildly atypical glandular cells present. See comment. 06/26/2024 COMMENT A-C. Only rare lymphocytes are present in the background. F. Rare atypical epithelial cells are present. The paucity of the cells precludes further evaluation. G-H. Mildly atypical glandular cells are present. Immunohistochemistry ([id number]) does not reveal a colonic origin of these glandular cells. These possibly represent reactive bronchial epithelial cells. Clinical correlation is suggested. CYTOLOGY STUDY Slides are reviewed. CYTOLOGY GROSS A. Received labeled with the patient's name and and designated EBUS, TBNA, site 10R # 1. The specimen consists of two stained smears for YIFAN. B. Received labeled with the patient's name and and designated EBUS, TBNA, site 10R #2. The specimen consists of two stained smears for YIFAN. C. Received labeled with the patient's name and and designated EBUS, TBNA, site 10R #3. The specimen consists of two stained smears for YIFAN. D. Received labeled with the patient's name and and designated EBUS, TBNA, site 7 #4. The specimen consists of two stained smears for YIFAN. E. Received labeled with the patient's name and and designated EBUS, TBNA, site 7 #5. The specimen consists of two stained smears for YIFAN. F. Received labeled with the patient's name and and designated EBUS, TBNA, site 7 #6. The specimen consists of two stained smears for YIFAN. G. Received in RPMI is 20 ml of pink, needle rinsed fluid labeled with the patient's name and and designated EBUS, TBNA, site 10R. The specimen is submitted for cell block preparation. H. Received in RPMI is 20 ml of pink, needle rinsed fluid labeled with the patient's name and and designated EBUS, TBNA, site 7. The specimen is submitted for cell block preparation. 06/22/2024 TC:? CPT:21232v8,89286z1,09904y5
--- NOTE | 2024-06-22 | IMM_PTH ---
PATIENT: JARED PEREZ LOC: EN U#:[id number] AGE/SX: 79/M ROOM: RE06/22/[address]: Dr. Sunny Mancia DO : 1945 BED: DIS: 06/22/2024 SPEC #: [id number] RECD: 06/25/24 14:50 STATUS: SCOTT REQ #: [id number] MATTHEW: 06/22/24 00:[address]: Sunny Mancia DEPT: IMMUNOHISTOCHEMISTRY RECD BY: Nick Shaikh ENTERED: 06/25/24 14:52 SP TYPE: IMMUNO OTHR DR: MD Tami Rosas, MOLD MECHANIC-C Tissues: Lung, NOS Procedures: NAPSIN A (add) CD45 (add) CK20 (add) CK7 (add) KI-67 (add) P53 (add) TTF1 (add) Vimentin (add) Pankeratin (initial) Pankeratin (add) CDX2 (add) CD68 (ADD) CK7 (initial) PHYSICIAN & [address] [address] SPECIMEN INFORMATION: Tissue Source: G- Lung biopsy, H- Lung biopsy Clinical Info: PET scan - positive Specimen Number: [id number] CPT code: 49547u0,17288i60 METHODOLOGY: Deparaffinized sections of prefer/formalin-fixed tissue or PAP/DQ stained slides are incubated with monoclonal/polyclonal antibodies/oligonucleotide probes. Localization is made via biotin free immunoperoxidase method. Appropriate controls are performed and reacted as expected. Results on target cell population are indicated in the following table: RESULTS: ANTIBODY / CLONE RESULT Block G AE1-3 (AE1/AE3/PCK26) positive CK7 (OV-TL12/30) positive CK20 (KS20.8) negative CDX2 ([id number]) negative CD45 (RP2/18) positive, focal Vimentin (V9) positive, focal CD68 (KP-1) positive, focal TTF-1 (8G7G3/1) negative Napsin A (Rabbit Polyclonal) negative P53 (DO-7) negative, null pattern Ki-67 (30-9) negative Block H AE1-3 (AE1/AE3/PCK26) positive CK7 (OV-TL12/30) positive CK20 (KS20.8) negative CDX2 ([id number]) negative CD45 (RP2/18) positive, focal Vimentin (V9) positive, focal CD68 (KP-1) positive, focal TTF-1 (8G7G3/1) negative Napsin A (Rabbit Polyclonal) negative P53 (DO-7) negative, null pattern Ki-67 (30-9) negative These tests were developed and their performance characteristics determined by [facility]. They may not have been cleared or approved by the U.S. Food and Drug Administration. The FDA has determined that such clearance or approval is not necessary. The above immunohistochemical/dualISH markers are ordered and reviewed by the Pathologist. INTERPRETATION: NAMRATA CARRILLO, site 10 R (cellblock): Mildly atypical glandular cells present. Yisel. NAMRATA YAN, site 7 (cellblock): Mildly atypical glandular cells present. COMMENT: The atypical glandular cells do not have an immunohistochemical profile favoring colonic origin. Clinical correlation is necessary. 06/26/2024
[2024-06-22] MEDS: Lactated Ringers 1,000 ML 15 ML IV (11:30)
--- NOTE | 2024-06-22 11:55 | PRE.ANES_ITS ---
ASA Classification* ASA Classification ASA Classification: 3 Assessment & Plan Anesthesia* Anesthesia Assessment Anesthesia Assessment: Discussed sedation and/or anesthesia options, risks, benefits, and alternatives with patient/parents/legal guardian/POA. Questions invited. The patient/parents/legal guardian/POA seems to understand and agrees to proceed with anesthesia plan. Reviewed the physical assessment, medical history, allergy history and patient home medications list prior to surgery/procedure/anesthetic and documented any changes. Performed airway and anesthesia risk assessments. Anesthesia Type Anesthesia Type: General History Source History Obtained from:: Patient and Chart Anesthesia Focused Assessment* Temperature: 98 F Pulse Rate: 57 Blood Pressure: 151/87 Respiratory Rate: 17 Pulse Ox: 100 Oxygen Delivery Method: Room Air Airway Assessment Mouth opens: >3 cm Mallampati Score: II Teeth Condition: Dentures (Patient has full upper and lower dentures.) Neck Range of motion (ROM): Limited ROM (Somewhat decreased extension.) Focused Labs Anesthesia Preop lab: CBC WBC 7.7 K/mm3 (4.4-11.0) 06/18/24 13:44 RBC 4.18 M/mm3 (4.6-6.2) L 06/18/24 13:44 Hgb 11.3 g/dL (13.0-16.5) L 06/18/24 13:44 Hct 36.1 % (40-54) L 06/18/24 13:44 Plt Count 294 K/mm3 (150-450) 06/18/24 13:44 CHEMISTRY Potassium 4.2 mmol/L (3.5-5.1) 06/10/24 10:30 Sodium 138 mmol/L (136-145) 06/10/24 10:30 Magnesium 1.8 mg/dL (1.6-2.6) 06/09/24 05:38 Phosphorus 3.5 mg/dL (2.5-4.9) 04/12/24 05:18 BUN 19 mg/dL (7-18) H 06/10/24 10:30 Creatinine 1.12 mg/dL (0.70-1.30) 06/10/24 10:30 Glucose 100 mg/dL (74-106) 06/10/24 10:30 POC Glucose 113 mg/dL (74-106) H 04/27/24 06:06 TSH 3.360 uIU/mL (0.358-3.740) 04/12/24 05:18 COAG PT 14.3 SECONDS (11.7-14.9) 06/08/24 13:17 Pre-Assessment Diagnosis/Proposed Procedure Planned Operative Procedure(s): Flexible fiberoptic bronchoscopy with possible washing Esophagogastroduodenoscopy Anesthesia History Anesthesia History - vp public relations: Anesthesia History - vp public relations Hx Hospitalization No 04/25/24 15:00 Any Problems With Anesthesia No 04/25/24 15:00 Cholinesterase deficiency No 04/25/24 15:00 You/Your Family Experience No 04/25/24 15:00 fever (hyperthermia) with Relationship Recent Exposure to Contagious No 06/22/24 10:29 Disease Does patient have nerve No 04/25/24 15:00 stimulator Patient instructed to have device shut off --Does patient have Pacemaker No 06/22/24 10:29 or ICD? When Was Last Pacemaker Check QUESTION #4 FULL TEXT: You/Your Family Experience fever (hyperthermia) with Anesthesia Last Oral Intake Last Oral intake: Last Oral Intake NPO since Meds taken in AM with sips of Yes 06/22/24 10:29 water? Meds patient instructed to take am of surgery Any additional information?: Yes NPO since: 18:00 Meds taken in AM with sips of water?: Yes PONV PONV - vp public relations: PONV - vp public relations Female HX of Motion Sickness HX of N/V After Surgery Non-Smoker Duration of Surgery greater than 60 minutes Number of Risk Factors PONV Score Height & Weight Height & Weight: Anesthesia: Height & Weight Height 5 ft 7 in 06/22/24 10:29 Weight: 75.9 kg 06/22/24 10:29 Body Mass Index (BMI) 26.2 06/22/24 10:29 Respiratory Assessment Respiratory Assessment - vp public relations: Respiratory Tract Infection Hx - vp public relations Hx Respiratory Tract Infection No 04/25/24 15:00 Any additional information?: Yes Hx Respiratory Tract Infection: Yes (Patient is recovering from a cold/sinus congestion) STOP Sleep Apnea STOP Sleep Apnea - vp public relations: STOP Sleep Apnea - vp public relations Hx Hypertension Yes: CONTROLLED ON MED 06/08/24 15:21 Hx Sleep Apnea No 06/08/24 15:21 CPAP No 06/08/24 15:21 BIPAP No 06/08/24 15:21 Do you snore loudly (louder than talking or can be heard Do you often feel tired/ fatigued/ sleepy during daytime? Has anyone observed you stop breathing during sleep? STOP Results QUESTION #5 FULL TEXT : Do you snore loudly (louder than talking or can be heard through closed doors)? 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 Specify any problems Hx of Preganancy in last 3 Months Nurse Filling Out Transfusion & Questions: Date: Time: Patient unable to answer at this time (ie. confused, unrespo /Reproduction History /Reproductive History - vp public relations: /Reproductive Hx- vp public relations Hx Now Gestational Age (in weeks): EDC: Hx Hx Para Hx Section SAB No 04/25/24 15:00 [facility] Medical History (Updated 06/22/24 @ 12:[address] 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 Chronic hypertension Acute alteration in mental status Neuropathy Vasectomy planned Hyponatremia TIA (transient ischemic attack) CVA (cerebral vascular accident) Hypertension History of stroke Tobacco use Benign essential hypertension Home Medications ?Medication ?Instructions ?Recorded ?Last Taken ?Type amlodipine 5 mg tablet 5 mg PO DAILY HEART 05/16/24 06/22/24 History clonidine HCl 0.1 mg tablet 0.1 mg PO DAILY PRN hbp 06/08/24 Unknown History potassium chloride 10 mEq 10 meq PO BID 06/08/24 06/21/24 History tablet,extended release ferrous sulfate 325 mg (65 mg 325 mg PO DAILY 30 days #60 tabs 06/10/24 06/21/24 Rx iron) tablet (Iron (ferrous sulfate)) metoprolol tartrate 25 mg tablet 25 mg PO DAILY BP 06/19/24 06/22/24 History Allergy/AdvReac Type Severity Reaction Status Date / Time No Known Allergies Allergy Verified 06/22/24 10:27 Family History Father Arthritis Alcohol abuse Mother Alcohol abuse Liver disease Surgical History History of hemicolectomy (04/25/24) H/O vasectomy S/P right hemicolectomy History of tonsillectomy History of appendectomy 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
--- NOTE | 2024-06-22 12:00 | EGD_PTH ---
PATIENT: JARED PEREZ LOC: EN U#:[id number] AGE/SX: 79/M ROOM: RE06/22/[address]: Dr. Sunny Mancia DO : 1945 BED: DIS: 06/22/2024 SPEC #: [id number] RECD: 06/22/24 16:25 STATUS: SCOTT TRISTA #: [id number] MATTHEW: 06/22/24 12:[address]: Sunny Mancia DEPT: SURGICAL PATHOLOGY RECD BY: Shilpa Lees ENTERED: 06/25/24 11:08 SP TYPE: EGD BIOPSY OT DR: MD Tami Rosas, TRUCK BODY REPAIRER-C Tissues: A - Pylorus B - Pylorus C - Gastric mucous membrane D - Esophagus, NOS E - Esophagus, NOS F - Esophagus, NOS G - Esophagus, NOS Procedures: Special Stain Group I Surgery Specimen Level IV Alcian Blue/PAS (control) HEADER OPERATION: Endobronchial ultrasound with biopsy PRE-OP DIAGNOSIS: Mediastinal lymphadenopathy TISSUE SUBMITTED: A- Pylorus nodule biopsy, B- Pre pylorus mucosa biopsy, C- Antral biopsy, D- Greater curvature body mucosa biopsy, E- Gastroesophageal junction biopsy, F- Distal esophagus mucosa biopsy, G- Distal esophagus mucosa biopsy #2 MICROSCOPIC DIAGNOSIS A. Pyloric nodule, biopsy: Intestinal metaplasia. No evidence of dysplasia. See comment. B. Pre-pyloric mucosa, biopsy: Intestinal metaplasia. No evidence of dysplasia. See comment. C. Gastric antrum, biopsy: Intestinal metaplasia. Chronic inflammation. No evidence of dysplasia. See comment. D. Greater curvature of stomach, biopsy: Chronic gastritis. E. Gastroesophageal junction, biopsy: Gastric mucosa with mild chronic inflammation. No evidence of goblet cell metaplasia. F. Distal esophagus, biopsy: Gastroesophageal junction mucosa with mild chronic inflammation. No evidence of goblet cell metaplasia. See comment. G. Distal esophagus mucosa #2, biopsy: Gastroesophageal junction mucosa with mild chronic inflammation. No evidence of goblet cell metaplasia. See comment. 06/26/2024 COMMENT A, B,C. Immunohistochemistry ([id number]) for P53 and Ki-67 will be performed and results will be reported separately. C. The results of immunohistochemistry for Helicobacter pylori will be reported separately ([id number]). F, G. Alcian blue/PAS stain with matched control is used in the evaluation of the specimen. MICROSCOPIC DESCRIPTION Slides are reviewed. GROSS DESCRIPTION A. Received in fixative is one container labeled with the patient's name and designated Pylorus nodule biopsy. The specimen consists of one irregular fragment of light abarca soft tissue that measures 0.5 x 0.5 x 0.1 cm. The specimen is totally submitted in one cassette. B. Received in fixative is one container labeled with the patient's name and designated Pre-pyloric mucosa biopsy. The specimen consists of one irregular fragment of light abarca soft tissue that measures 0.5 x 0.3 x 0.1 cm. The specimen is totally submitted in one cassette. C. Received in fixative is one container labeled with the patient's name and designated Antrum biopsy. The specimen consists of one irregular fragment of light abarca soft tissue that measures 0.5 x 0.3 x 0.1 cm. The specimen is totally submitted in one cassette. D. Received in fixative is one container labeled with the patient's name and designated Greater curvature body mucosa biopsy. The specimen consists of two irregular fragments of light aabrca soft tissue that in aggregate measure 0.7 x 0.6 x 0.1 cm. The specimen is totally submitted in one cassette. E. Received in fixative is one container labeled with the patient's name and designated GE junction biopsy. The specimen consists of one irregular fragment of light abarca soft tissue that measures 0.5 x 0.5 x 0.1 cm. The specimen is totally submitted in one cassette. F. Received in fixative is one container labeled with the patient's name and designated Distal esophagus biopsy. The specimen consists of one irregular fragment of light abarca soft tissue that measures 0.5 x 0.3 x 0.1 cm. The specimen is totally submitted in one cassette. G. Received in fixative is one container labeled with the patient's name and designated Distal esophagus biopsy mucosa #2. The specimen consists of two irregular fragments of light abarca soft tissue that in aggregate measure 0.3 x 0.3 x 0.1 cm. The specimen is totally submitted in one cassette. 06/25/2024 TC:3 CPT:65555w7,04681s4
--- NOTE | 2024-06-22 12:00 | IMM_PTH ---
PATIENT: JARED PEREZ LOC: EN U#:[id number] AGE/SX: 79/M ROOM: RE06/22/[address]: Dr. Sunny Mancia DO : 1945 BED: DIS: 06/22/2024 SPEC #: [id number] RECD: 06/25/24 09:41 STATUS: SCOTT REQ #: [id number] MATTHEW: 06/22/24 12:[address]: Sunny Mancia DEPT: IMMUNOHISTOCHEMISTRY RECD BY: Nick Shaikh ENTERED: 06/25/24 09:41 SP TYPE: IMMUNO OTHR DR: MD Tami Rosas, SHOE CEMENTER-C Tissues: C - Gastric mucous membrane Procedures: H Pylori (initial) PHYSICIAN & INSTITUTION [place] [id number] SPECIMEN INFORMATION: Tissue Source: A- Pylorus nodule biopsy, B- Pre-pylorus mucosa biopsy, C- Antral biopsy Clinical Info: Mediastinal lymphadenopathy Specimen Number: [id number] A, B,C CPT code: 90304u8,08312i6 METHODOLOGY: Deparaffinized sections of prefer/formalin-fixed tissue or PAP/DQ stained slides are incubated with monoclonal/polyclonal antibodies/oligonucleotide probes. Localization is made via biotin free immunoperoxidase method. Appropriate controls are performed and reacted as expected. Results on target cell population are indicated in the following table: RESULTS: ANTIBODY / CLONE RESULT Block A P53 (DO-7) positive, wild type Ki-67 (30-9) positive, low Block B P53 (DO-7) positive, wild type Ki-67 (30-9) positive, low Block C H Pylori (polyclonal) negative P53 (DO-7) positive, wild type Ki-67 (30-9) positive low These tests were developed and their performance characteristics determined by [facility]. They may not have been cleared or approved by the U.S. Food and Drug Administration. The FDA has determined that such clearance or approval is not necessary. The above immunohistochemical/dualISH markers are ordered and reviewed by the Pathologist. INTERPRETATION: A. Pylorus nodule, biopsy: No evidence of dysplasia. B. Pre-pylorus mucosa, biopsy: No evidence of dysplasia. C. Antrum, biopsy: Negative for Helicobacter pylori organisms. AM. 06/27/2024
[2024-06-22] MEDS: Lidocaine Jelly 2% 20 ML Syringe (URO-JET) 1 APPLIC (12:26)
--- NOTE | 2024-06-22 12:55 | HP.PCM_ITS ---
History and Physical Date of Admission: 06/22/24 Date of Service: 06/07/24 MR#: [id number] Acct: [id number] Name: JARED PEREZ Rep #: [id number] : 1945 Provider: Dr. Du Thomas MD Age/Sex: 79/M Location: [facility] Status: Signed Intake Vital Signs 05/31/2415:08 06/07/2409:07 Height 5 ft 7 in 5 ft 7 in Weight: 170 lb BMI 26.6 BP 220/80 H Blood Pressure Location Rt brachial Position Sitting Respiration 18 Pulse 72 Pulse Source Monitor Temp 97.5 F L Temp Source Temporal Pulse Oximetry (%) 96 Oxygen Delivery Method room air Intake Visit Reasons: DISCUSS EGD- ABNORMAL PET Chief Complaint: discuss EGD- abnormal PET Accompanied by: and daughter Is patient in pain?: No Allergies No Known Allergies Allergy (Verified 06/07/24 11:18) Medications ?Medication ?Instructions ?Recorded ?Confirmed ?Type metoprolol tartrate 25 mg tablet 25 mg PO BID BP #60 tabs 04/25/24 06/07/24 Rx sodium chloride 1,000 mg soluble 1,000 mg PO BID 7 days #14 tabs 05/01/24 06/07/24 Rx tablet amlodipine 5 mg tablet 5 mg PO ONCE HEART 05/16/24 06/07/24 History ferrous sulfate 325 mg (65 mg 325 mg PO BID #60 tabs 05/16/24 06/07/24 Rx iron) tablet (Iron (ferrous sulfate)) Have you fallen in the past year?: No PFSH Medical History Colonic mass Colon cancer Preop cardiovascular exam Aortic stenosis Pre-op testing Wears dentures Arthritis Anemia Gastric reflux Former smoker History of edema History of echocardiogram History of stress test Cardiology follow-up encounter Overweight (BMI 25.0-29.9) Coronary artery disease 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 Chronic hypertension Acute alteration in mental status Neuropathy Vasectomy planned Hyponatremia TIA (transient ischemic attack) CVA (cerebral vascular accident) Hypertension History of stroke Tobacco use Benign essential hypertension Surgical History H/O vasectomy S/P right hemicolectomy History of tonsillectomy History of appendectomy 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) Family History Father Arthritis Alcohol abuseMother Alcohol abuse Liver disease Social History Smoking Status: Former smoker alcohol intake: never substance use type: does not use HPI HPI HPI: Patient presents following laparoscopic assisted right hemicolectomy on 04/27/2024. This represents his second postoperative visit and in the interim since his last visit 05/10/2024 he met with oncology and completed requested PET exam 05/29/2024. This study showed evidence of PET avidity at the GE junction with SVU units consistent with a viable neoplasm and he is referred for consideration of upper scope. He presents today with his and daughter. He shares that he is getting his strength back and is eliminating on a practical schedule. However, he adds it has not learned to shut off. When asked to describe this further he suggest that he is having larger than normal bowel movements. He does confirm that he is not having any straining or bleeding. He also denies any evidence of dark stools. Instead, he reports that he has seen what looks like cigarette guido. He does confess this may be simply has poor vision which has deteriorated on the account of macular degeneration. When discussing the findings of the PET scan, Mr. Carvajal states that he is not surprised as he frequently feels like things cannot get through. He shares that he used to try to balance his stomach to try to encourage digestion. He also has always felt that his stomach stays full too long. When asked if he has vomited any undigested food (screening for gastroparesis) he mentions that he has not been able to vomit anymore and states this is even despite trying to gag himself as previously regurgitation helped his abdominal symptoms. He notes that he does have a history of an EGD approximately 10 years ago at the [facility] that was unremarkable and its findings. He does describe some heartburn that is worse in surgery and generally experiences a acid the stomach. He denies any associated reflux. He also denies any sensation of food becoming stuck as it is ingested. In fact, he reports that he is now in as good of shape as ever (referencing his digestive system). Nursing notified me that patient presented severely hypertensive on intake and his blood pressure reading at that time was 220/80. He denies any symptoms of dizziness, lightheadedness, or headache. Below is recapitulated from patient's prior visit for ease of review: Patient presents following laparoscopic assisted right hemicolectomy on 04/27/2024. He presents today with his . Immediately, nursing alerted me to the fact that patient's blood pressure is running greater than 200 systolic. Mr. Perez confesses that he did not take his blood pressure medications this morning because it was low (he states that it was 150 mmHg systolic). He also adds that he does not get concerned until his blood pressure gets up to 240 mmHg. I repeatedly stated that he would have to remain faithful to his blood pressure regimen and that rebound effects are possible. Mr. Perez expressed understanding and familiarity with this concept. Regarding his recovery, he states since hospital discharge they have been doing well. They report minimal postoperative pain. They have no wound concerns. They report tolerance of a diet. Concerning their bowel movements, they report that these have been regular and semisolidin consistency. He then goes into a detailed explanation about how he is approaching a 25 to 30-day period where he normally experiences bloating due to a ball of phlegm that has to be moved. He shares that previously he used chocolate milk to move this along, but is encouraged that surgery seems to have had a positive effect on the symptoms. He also repeatedly connects the symptoms to his increase in blood pressure. Lastly, he offhandedly mentions that he is still seeing some occasional bleeding with bowel movements. ROS General General: Yes weakness; No weight change, appetite, fatigue, colon cancer or breast cancer HEENT HEENT: No difficulty swallowing, eye injury, eye surgery, swollen glands or hoarseness Endo Endocrine: No thyroid disease, diabetes mellitus, thyroid cancer, Hair loss, heat intolerance or cold intolerance Skin Skin: No rash or changing moles Musc Musculoskeletal: No back problems, arthritis, rheumatoid arthritis, gout or joint pain Cardio Cardiovascular: Yes murmur, high blood pressure and shortness of breat with exertion; No pacemaker, heart disease, atrial fibrillation, heart attack, heart stent, palpitations or chest pain Psych Psychiatric: No depression, anxiety or hearing voices Resp Respiratory: No shortness of breath, No sleep apnea, Yes cough, No COPD, No asthma, No emphysema and No wheezing Gastro Gastrointestinal: No abdominal pain, No nausea or vomiting, No diarrhea, No constipation, No blood in stool, No acid reflux, No hemorrhoids, No ulcers, No gallbladder problem and No black,tarry stools Aleks Hematologic: Yes blood thinners, No blood disorders, No bleeding, No anemia and No blood clots Additional Details: ASA Neuro Neurologic: No system reviewed and no additional complaints, except as documented, No as per HPI, No abnormal gait, No abnormal hearing, No abnormal movements, No abnormal speech, No behavioral changes, Yes burning sensations, No confusion, No convulsions, Yes disequilibrium, Yes dizziness, No localized weakness, No frequent falls, No headache(s), No lack of coordination, No loss of vision, No memory loss, Yes numbness, No other visual disturbances, Yes radicular pain, No restless legs, No sensory deficit, No syncope, Yes tingling, No tremor(s), Yes weakness and No other Exam Const General: cooperative and anxious Orientation: alert, awake and oriented x3 Resp Effort & Inspection: normal respiratory effort GI Other: Nondistended, well-healed limited laparotomy incision without evidence of hernia, soft, nontender to palpation x 4 quadrants Assessment and Plan Assessment and Plan (1) Colon cancer: Status: Acute Qualifiers: Colon location: ascending Qualified Code(s): C18.2 - Malignant neoplasm of ascending colon Comment: Patient is an 79-year-old male with history of CAD and PAD who presents for outpatient follow-up of recent occult anemia and workup with colonoscopy that ultimately found evidence of a hepatic flexure mass. 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 CT imaging of the chest, abdomen, and pelvis was obtained for evaluation of patient's vasculature on intake but did not show any evidence of metastasis. I discussed with patient and spouse plans to proceed with ERAS laparoscopic right hemicolectomy next week. A diagram of the relevant anatomy was made to facilitate understanding. Further, I shared that I held a discussion with anesthesia prior to today's visit and they remain concern for coronary insufficiency and strongly urged me to pursue cardiac evaluation. A special request has been made to the heart group but no definitive plans have been set. Will plan to proceed with scheduling colectomy so things are in place to move forward if we are permitted given that patient does seem to be anemic from this issue. Update 05/10/2024: Patient's colon cancer summary following processing of his surgical specimen shows a rather aggressive cancer that is poorly differentiated and with significant spread to his mesenteric lymph nodes (15 out of 16). Final pathologic staging was T4, N2, MX. It is of note that patient had CT imaging of the liver that showed an equivocal lesion of the liver that likely will need further dedicated imaging. With this pathology I shared with Mr. Perez that he would be considered for adjuvant chemotherapy and require a port. I gave a brief overview of this process as well as the need to refer to oncology. Mr. Perez makes it clear that his goal is to improve his longevity as he would like to be around for his . Update 06/07/2024: Unfortunately patient has a number of areas concerning for metastasis or consistent with viable neoplasm on recent PET exam. Included in this is an area of avidity at his gastroesophageal junction. I agree with oncology that this should be accessible via typical esophagogastroduodenoscopy and described this procedure to the patient as well as the need to be medically optimized in order to obtain a biopsy. He goes on to share that there has been some concern with this portion of his digestion for some time but does deny any symptoms that would be consistent with partial obstruction/mass effect. Unfortunately, based on his blood pressure today I do not believe he would be fit to undergo a procedure and have thus directed him to the ER to try to initiate medical optimization that may ultimately need to be completed on the outpatient side. Plan: Plan for EGD with biopsy given recent PET findings (2) Hypertension: Status: Chronic Comment: Patient severely hypertensive with initial blood pressure 220/80 mmHg. This is higher than any pressure recorded in the last year. Patient is asymptomatic. Despite trying to wait some time and allow patient to relax his pressure remains elevated. Given his risk for stroke and his need for upcoming procedures I did recommend presenting to the ER to try to initiate optimization of this part of his care. Patient was initially reluctant but was open to my reasoning and obliged my request to present to the ER. A phone call was made to emergency medicine to notify of patient's presentation. Plan: Dispo to ER I have examined the patient the following changes are noted: Patient presents today for EGD with GE junction evaluation as well as for endobronchial ultrasound biopsy with pulmonary. It is noted that he had a syncopal event following his liver biopsy and this appeared directly related to over administration of antihypertensives. This morning Mr. Perez appears in his usual state of health but does share that he took his amlodipine dose last night and then again this morning as a means of trying to minimize his risk for any hypertension. His abdominal exam is benign. Will plan to proceed for EGD with biopsy following endobronchial ultrasound biopsy by pulmonary.
--- NOTE | 2024-06-22 13:21 | OP.BRONCH_ITS ---
Patient Name: Shaan Raymond Procedure Date: 06/22/2024 11:57 AM Date of : 1945 Age: 79 Procedure: Bronchoscopy Indications: Mediastinal adenopathy Providers: Sunny Mancia MD Referring MD: Sunny Mancia MD Medicines: See the Anesthesia note for documentation of the administered medications Complications: No immediate complications Procedure: Pre-Anesthesia Assessment: - A History and Physical has been performed. Patient meds and allergies have been reviewed. The risks and benefits of the procedure and the sedation options and risks were discussed with the patient. All questions were answered and informed consent was obtained. Patient identification and proposed procedure were verified prior to the procedure by the physician and the nurse in the procedure room. Mental Status Examination: alert and oriented. Airway Examination: normal oropharyngeal airway. Respiratory Examination: clear to auscultation. CV Examination: normal. ASA Grade Assessment: II - A patient with mild systemic disease. After reviewing the risks and benefits, the patient was deemed in satisfactory condition to undergo the procedure. The anesthesia plan was to use general anesthesia. Immediately prior to administration of medications, the patient was re-assessed for adequacy to receive sedatives. The heart rate, respiratory rate, oxygen saturations, blood pressure, adequacy of pulmonary ventilation, and response to care were monitored throughout the procedure. The physical status of the patient was re-assessed after the procedure. After I obtained informed consent, the scope was passed under direct vision. Throughout the procedure, the patient's blood pressure, pulse, and oxygen saturations were monitored continuously. The ultrasound bronchoscope was introduced through the mouth, via the endotracheal tube (the patient was intubated for the procedure) and advanced to the tracheobronchial tree. The procedure was accomplished without difficulty. The patient tolerated the procedure well. Findings: The endotracheal tube is in good position. The visualized portion of the trachea is of normal caliber. The nicolette is sharp. The tracheobronchial tree was examined to at least the first subsegmental level. Bronchial mucosa and anatomy are normal; there are no endobronchial lesions, and no secretions. The endotracheal tube is in good position. The visualized portion of the trachea is of normal caliber. The nicolette is sharp. The tracheobronchial tree was examined to at least the first subsegmental level. Bronchial mucosa and anatomy are normal; there are no endobronchial lesions, and no secretions. The scope was withdrawn and replaced with the EBUS bronchoscope to accomplish the ultrasound examination. Lymph Nodes: An endobronchial ultrasound endoscope was utilized to systematically examine the subcarinal mediastinum (level 7) and right hilar region (level 10R) in order to assist with guiding the biopsy needle. Lymph node sizing was performed via endobronchial ultrasound. Sampling by transbronchial needle aspiration was also performed using an Olympus ViziShot 2 21 gauge needle in the subcarinal mediastinum (level 7) and right hilar region (level 10R) and sent for routine cytology. - The 10R (hilar) node was evaluated. Three samples with the needle were obtained. - The 7 (subcarinal) node was evaluated. Three samples with the needle were obtained. Impression: - Mediastinal adenopathy - Endobronchial ultrasound was performed. - Lymph node sampling was perfored. - The airway examination was normal. Recommendation: - Await biopsy results. Procedure Code(s): --- Professional --- 98632, Bronchoscopy, rigid or flexible, including fluoroscopic guidance, when performed; with endobronchial ultrasound (EBUS) guided transtracheal and/or transbronchial sampling (eg, aspiration[s]/biopsy[ies]), one or two mediastinal and/or hilar lymph node stations or structures Diagnosis Code(s): --- Professional --- R59.0, Localized enlarged lymph nodes R09.89, Other specified symptoms and signs involving the circulatory and respiratory systems CPT copyright 2021 [employer]. All rights reserved. The codes documented in this report are preliminary and upon wet process operator review may be revised to meet current compliance requirements. DO Sunny Carrington MD 06/22/2024 1:20:56 PM This report has been signed electronically. Number of Addenda: 0 Note Initiated On: 06/22/2024 11:57 AM
--- NOTE | 2024-06-22 14:00 | PCM.POST.ANE ---
Anesthesia: Postop Eval I Current Vital Signs Temperature: 97.6 F Pulse Rate: 63 Blood Pressure: 151/67 Respiratory Rate: 20 Pulse Ox: 98 Oxygen Delivery Method: Room Air Assessment Airway patent: Yes Spontaneous unlabored respirations: Yes Mental status: Awake nausea: No Vomiting: No Anesthesia Complication: No Fluid Hydration Crystalloid volume administer (ml): 700 Total IV fluid infused: 700 Progress Note Anesthesia document: Postop Eval 1 completed: Yes
--- NOTE | 2024-06-22 14:02 | OP.EGD_ITS ---
Patient Name: Shaan Raymond Procedure Date: 06/22/2024 1:11 PM Date of : 1945 Age: 79 Procedure: Upper GI endoscopy Indications: Abnormal PET scan of the GI tract, Personal history of malignant neoplasm Providers: Du Thomas MD Medicines: General Anesthesia Patient Profile: Refer to note in patient chart for documentation of history and physical. Complications: No immediate complications. Estimated blood loss: Minimal. Procedure: Pre-Anesthesia Assessment: - The heart rate, respiratory rate, oxygen saturations, blood pressure, adequacy of pulmonary ventilation, and response to care were monitored throughout the procedure. After obtaining informed consent, the endoscope was passed under direct vision. Throughout the procedure, the patient's blood pressure, pulse, and oxygen saturations were monitored continuously. The Endoscope was introduced through the mouth, and advanced to the second part of duodenum. The upper GI endoscopy was accomplished without difficulty. The patient tolerated the procedure well. Scope In: 1:21:02 PM Scope Out: 1:46:43 PM Total Procedure Duration Time 0 hours 25 minutes 41 seconds Findings: No gross lesions were noted in the duodenal bulb, in the first portion of the duodenum and in the second portion of the duodenum. No biopsies or other specimens were collected for this exam. A single 5 mm mucosal papule (nodule) with no bleeding and no stigmata of recent bleeding was found at the pylorus. Biopsies were taken with a cold forceps for histology. Estimated blood loss was minimal. Localized moderate inflammation characterized by friability was found in the prepyloric region of the stomach. Biopsies were taken with a cold forceps for histology. Estimated blood loss was minimal. Localized mildly erythematous mucosa without bleeding was found in the gastric antrum. Biopsies were taken with a cold forceps for Helicobacter pylori testing. Estimated blood loss was minimal. Patchy moderately erythematous mucosa without bleeding was found on the greater curvature of the stomach. Biopsies were taken with a cold forceps for histology. Estimated blood loss was minimal. The Z-line was irregular and was found 37 cm from the incisors. The Z-line was. Biopsies were taken with a cold forceps for histology. Estimated blood loss was minimal. Two tongues of salmon-colored mucosa were present from 34 to 37 cm. Nodularity was present. The maximum longitudinal extent of these esophageal mucosal changes was 3 cm in length. Biopsies were taken with a cold forceps for histology. Estimated blood loss: 3 mL requiring treatment with coagulation. Grade II varices were found in the middle third of the esophagus. They were 15 mm in largest diameter. No biopsies or other specimens were collected for this exam. Impression: - No gross lesions in the duodenal bulb, in the first portion of the duodenum and in the second portion of the duodenum. No specimens collected. - A single mucosal papule (nodule) found in the stomach. Biopsied. - Mucosal changes suspicious for gastritis. Biopsied. - Erythematous mucosa in the antrum. Biopsied. - Erythematous mucosa in the greater curvature. Biopsied. - Z-line irregular, 37 cm from the incisors. - Z-line. Biopsied. - Ponce-colored mucosa suspicious for short-segment Amador's esophagus. Biopsied. - Grade II esophageal varices. No specimens collected. Recommendation: - Discharge patient to home (via wheelchair). - Resume previous diet today. - No aspirin, ibuprofen, naproxen, or other non-steroidal anti-inflammatory drugs for 2 days after biopsy. - Await pathology results. - Telephone my office for pathology results in 1 week. Procedure Code(s): --- Professional --- 71071, Esophagogastroduodenoscopy, flexible, transoral; with biopsy, single or multiple Diagnosis Code(s): --- Professional --- K22.89, Other specified disease of esophagus K31.89, Other diseases of stomach and duodenum I85.00, Esophageal varices without bleeding Z85.9, Personal history of malignant neoplasm, unspecified R93.3, Abnormal findings on diagnostic imaging of other parts of digestive tract CPT copyright 2021 [employer]. All rights reserved. The codes documented in this report are preliminary and upon tailor men's ready to wear review may be revised to meet current compliance requirements. Du Thomas MD 06/22/2024 2:01:52 PM This report has been signed electronically. Number of Addenda: 0 Note Initiated On: 06/22/2024 1:11 PM
--- NOTE | 2024-06-22 16:34 | POSTOPAN2_ITS ---
Anesthesia Postop Eval I Sum Postop Eval Completion status Anesthesia document: Postop Eval 1 completed: Yes Anesthesia Postop Eval I Summary Anesthesia Postop Eval I Summary: Anesthesia Postop Eval I: Assessment Summary Airway patent Yes 06/22/24 14:02 PEDIATRIC [email or web address] Spontaneous unlabored Yes 06/22/24 14:02 PEDIATRIC NP.JDEF respirations Mental status Awake 06/22/24 14:02 PEDIATRIC NP.JDEF nausea No 06/22/24 14:02 PEDIATRIC NP.JDEF Vomiting No 06/22/24 14:02 PEDIATRIC NP.JDEF Anesthesia Postop Eval I: Fluid Summary Crystalloid volume administer 700 06/22/24 14:02 PEDIATRIC NP.JDEF (ml) Colloids volume administered ( ml) Blood Product volume administered (ml) Total IV fluid infused 700 06/22/24 14:02 PEDIATRIC NP.JDEF Anesthesia Postop Eval I: Summary Notes Anesthesia Complication No 06/22/24 14:02 PEDIATRIC NP.JDEF Anesthesia Complication Comment: Post-operative progress note Anesthesia: Postop Eval II Evaluation Mental status: Awake and Calm Pain Level: 0 nausea: No Vomiting: No Complications Anesthesia Complication: No
--- NOTE | 2024-06-22 16:34 | PCM.POSTANE2 ---
Anesthesia Postop Eval I Sum Postop Eval Completion status Anesthesia document: Postop Eval 1 completed: Yes Anesthesia Postop Eval I Summary Anesthesia Postop Eval I Summary: Anesthesia Postop Eval I: Assessment Summary Airway patent Yes 06/22/24 14:02 RADIO INTERFERENCE TROUBLE SHOOTER.JDEF Spontaneous unlabored Yes 06/22/24 14:02 RADIO INTERFERENCE TROUBLE SHOOTER.JDEF respirations Mental status Awake 06/22/24 14:02 RADIO INTERFERENCE TROUBLE SHOOTER.JDEF nausea No 06/22/24 14:02 RADIO INTERFERENCE TROUBLE SHOOTER.JDEF Vomiting No 06/22/24 14:02 RADIO INTERFERENCE TROUBLE SHOOTER.JDEF Anesthesia Postop Eval I: Fluid Summary Crystalloid volume administer 700 06/22/24 14:02 RADIO INTERFERENCE TROUBLE SHOOTER.JDEF (ml) Colloids volume administered ( ml) Blood Product volume administered (ml) Total IV fluid infused 700 06/22/24 14:02 RADIO INTERFERENCE TROUBLE SHOOTER.JDEF Anesthesia Postop Eval I: Summary Notes Anesthesia Complication No 06/22/24 14:02 RADIO INTERFERENCE TROUBLE SHOOTER.JDEF Anesthesia Complication Comment: Post-operative progress note Anesthesia: Postop Eval II Evaluation Mental status: Awake and Calm Pain Level: 0 nausea: No Vomiting: No Complications Anesthesia Complication: No
== END 2024-06-22 16:03 | disposition home or self-care (01) ==
LOC: EN 09:49 → AC 09:51
PROVIDERS: Surgery; PCP Nurse Practitioner Family; Referring Provider Internal Medicine Critical Care Medicine; Visit Provider Internal Medicine Critical Care Medicine
PROC: BB4BZZZ Ultrasonography of Pleura (ICD-10-PCS; CPT 43239; principal; 2024-06-22 11:30)
PROC: 0DJ08ZZ Inspection of Upper Intestinal Tract, Via Natural or Artificial Opening Endoscopic (ICD-10-PCS; CPT 43235; 2024-06-22 11:30)
DX: R59.0 Localized enlarged lymph nodes (principal); I85.00 Esophageal varices without bleeding; C18.2 Malignant neoplasm of ascending colon; I25.10 Atherosclerotic heart disease of native coronary artery without angina pectoris; H35.30 Unspecified macular degeneration; R16.0 Hepatomegaly, not elsewhere classified; G89.18 Other acute postprocedural pain; I10 Essential (primary) hypertension; K22.89 Other specified disease of esophagus; K22.70 Barrett's esophagus without dysplasia; R12 Heartburn; R55 Syncope and collapse; K76.9 Liver disease, unspecified; Z87.891 Personal history of nicotine dependence; K31.89 Other diseases of stomach and duodenum; Z85.9 Personal history of malignant neoplasm, unspecified; R93.3 Abnormal findings on diagnostic imaging of other parts of digestive tract
CPT/HCPCS: 43239; 31652; 88161; 88172; 88305; 88312; 88341; 88342; J2405

== ENCOUNTER → 2024-09-05 | Outpatient (CLI) | payer SELFPAY ==
[2024-09-05 17:52] LABS: Absolute Lymphocyte Count 1.41 X10^3/uL (0.83-4.51); Absolute Neutrophil Count 4.1 X10^3/uL (2.0-7.7); Basophil# 0.02 X10^3/uL; Basophil% 0.3 % (0-1); Eosinophils% 3.1 % (0-5); Hematocrit 39.9 % (40-54); Hemoglobin 13.3 g/dL (13.0-16.5); Lymphocyte # 1.41 X10^3/ul (0.83-4.51); Lymphocyte % 22.2 % (19-41); Mean Corp Hgb Conc 33.3 g/dL (32-36); Mean Corpuscular Hgb 29.6 pg (27.0-32.0); Mean Corpuscular Volume 88.7 fL (80-94); Mean Platelet Vol. 9.8 fl (6.2-12.0); Monocyte# 0.65 X10^3/uL; Monocyte% 10.2 % (0-10); NRBC Flagged by Analyzer 0 % (0-5); Neutrophil # 4.06 X10^3/uL (2.7-7.7); Platelet Count 274 K/mm3 (150-450); RBC Distribution Width CV 13.3 % (11.6-14.6); RBC Distribution Width SD 43.2 fl (35.1-43.9); White Blood Count 6.4 K/mm3 (4.4-11.0)
[2024-09-05 18:10] LABS: AST(SGOT) 27 U/L (15-37); Alanine Aminotransfer ALT/SGPT 30 U/L (16-61); Albumin, Serum 3.8 g/dL (3.2-5.0); Alkaline Phosphatase 106 U/L (45-117); Anion Gap 7 (5-15); BUN 16 mg/dL (7-18); Calcium,Total 9.8 mg/dL (8.5-10.1); Chloride 98 mmol/L (98-107); Creatinine, Serum 1.23 mg/dL (0.70-1.30); EST Glomerular Filtration Rate 60 mL/min (>60); Est Glom Filt Rate - Afr Amer 73 mL/min (>60); Globulin 3.7 g/dL (2.2-4.2); Glucose 99 mg/dL (74-106); Potassium 4.3 mmol/L (3.5-5.1); Protein, Total 7.5 g/dL (6.4-8.2); Sodium Level 135 mmol/L (136-145)
== END | disposition home or self-care (01) ==
LOC: BFHLAB 14:52
PROVIDERS: PCP Nurse Practitioner Family; Visit Provider Nurse Practitioner Family
DX: M54.9 Dorsalgia, unspecified (principal)
CPT/HCPCS: 36415; 80053; 85025

== ENCOUNTER → 2024-10-17 | Outpatient (CLI) | payer SELFPAY ==
[2024-10-17 15:18] LABS: Mucous, Urine 0 SEEN /hpf (<or=2+); Squamous Epithelial Cells - UA 0 SEEN /hpf (0-5); White Blood Cells 0 SEEN /hpf (0-5)
[2024-10-17 15:40] LABS: Color, Urine Yellow (Yellow); Glucose, Dipstick Normal (Normal); Ketone-Dipstick Negative (Negative); Leukocyte Esterase-Dipstick Negative /ul (Negative); Nitrite-Dipstick Negative (Negative); Occult Blood-Urine Negative /ul (Negative); Protein-Dipstick 30 mg/dl (Negative); Specific Gravity, Urine 1.015 (1.002-1.030); Urine Bilirubin Dipstick Negative (Negative); Urine Clarity Sl. Cloudy (Clear); Urine Urobilinogen Normal (Normal)
[2024-10-17 16:03] LABS: Amorphous Sediment 3+; Bacteria 2+ /hpf (None Seen); Red Blood Cells-Urine 0 SEEN /hpf (0-5)
[2024-10-17 17:44] LABS: Anion Gap 9 (5-15); BUN 16 mg/dL (4-19); BUN/Creat Ratio 15.2 RATIO (10-20); Calcium,Total 9.7 mg/dL (7.6-11.0); Carbon Dioxide 27.4 mmol/L (21.0-32.0); Chloride 93 mmol/L (98-108); Creatinine, Serum 1.06 mg/dL (0.70-1.20); EST Glomerular Filtration Rate 71 (>60); Glucose 100 mg/dL (70-99); Potassium 4.5 mmol/L (3.3-5.1); Sodium Level 130 mmol/L (133-145)
== END | disposition home or self-care (01) ==
LOC: LAB 15:16
PROVIDERS: PCP Nurse Practitioner Family; Referring Provider Nurse Practitioner Family; Visit Provider Nurse Practitioner Family
DX: R10.31 Right lower quadrant pain (principal)
CPT/HCPCS: 36415; 80048; 81001

== ENCOUNTER 2024-10-24 17:35 | Emergency (ER) | payer SELFPAY ==
[2024-10-24 17:36] VITALS: BP 170/67; PULSE 81; RESP 18; TEMP 36.3; O2SAT 100; BMI 26.2
[2024-10-24 17:37] VITALS: BP 170/67; PULSE 81; RESP 18; TEMP 36.3; O2SAT 97
--- NOTE | 2024-10-24 17:53 | EDS_ITS ---
HPI History of Present Illness Chief Complaint: Flank Pain [facility] Medical History (Updated 10/24/24 @ 19:[address] 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 Chronic hypertension Acute alteration in mental status Neuropathy Vasectomy planned Hyponatremia TIA (transient ischemic attack) CVA (cerebral vascular accident) Hypertension History of stroke Tobacco use Benign essential hypertension Home Medications ?Medication ?Instructions ?Recorded ?Last Taken ?Type amlodipine 5 mg tablet 5 mg PO DAILY HEART 05/16/24 06/22/24 History clonidine HCl 0.1 mg tablet 0.1 mg PO DAILY PRN hbp Unknown History ferrous sulfate 325 mg (65 mg 325 mg PO DAILY 30 days #60 tabs 06/10/24 06/21/24 Rx iron) tablet (Iron (ferrous sulfate)) metoprolol tartrate 50 mg tablet 25 mg PO QDAY 5 Unknown History Allergy/AdvReac Type Severity Reaction Status Date / Time No Known Allergies Allergy Verified 10/17/24 14:22 Family History Father Arthritis Alcohol abuse Mother Alcohol abuse Liver disease Surgical History History of hemicolectomy (04/25/24) H/O vasectomy S/P right hemicolectomy History of tonsillectomy History of appendectomy 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) Social History Smoking Status: Former smoker alcohol intake: never substance use type: does not use EXAM Physical Exam Const Vital Signs: 10/24/24 17:36 10/24/24 17:37 Temperature 97.3 F L 97.3 F L Temperature Source Temporal Temporal Pulse Rate 81 81 Respiratory Rate 18 18 Blood Pressure 170/67 H 170/67 H Blood Pressure Mean 101 101 Pulse Ox 100 97 Oxygen Delivery Method Room Air Room Air MDM MDM MDM Narrative Medical decision making narrative: HISTORY OF PRESENT ILLNESS: 79-year-old man p/w several days of right lower quadrant abdominal pain/flank p ain. Notes he recently got a CT scan today. Notes he was recent antibiotics for presumed UTI. He notes nausea but no vomiting. Thinks may be dehydrated. He denies any urinary complaint such as dysuria, urgency, frequency and hematuria. Denies diarrhea or constipation. Notes history of abdominal surgeries. REVIEW OF SYSTEMS: Pertinent positives: Flank pain, abdominal pain, nausea Pertinent negatives: Urinary complaints, vomiting PHYSICAL EXAM: Nursing triage notes reviewed, Vital signs reviewed Constitutional: please see mdm HENT: MMM Eyes: Pupils equal round and reactive to light, Extraocular muscles intact Neck: No stridor, no JVD, full neck ROM Lungs: Clear to auscultation, No wheezing or rales. No increased work of breathing, no conversational dyspnea, no accessory muscle use, no nasal flaring. No respiratory distress noted Heart: Regular rate and rhythm, No murmurs, No rubs and No gallops, 2+ distal pulses (radial, femoral, posterior tibial) in all extremities Abdomen: Soft, there is no tenderness, rigidity, rebound or guarding, no obvious peritoneal signs, no palpable pulsatile abdominal masses, no auscultated abdominal bruit : No CVAT, right testicle TTP, no scrotal skin changes noted, no perineal crepitus or induration to suggest Meli's gangrene. Intact hemostatic reflex. Normal testicular lie. Extremities: No edema Neuro: No new focal neurological deficits, cranial nerves II through XII intact, 5/5 strength in all present extremities. Intact sensation to light touch in all present extremities, 2+ reflexes bilateral patella tendons. Skin: No rash or lesions noted MEDICAL DECISION MAKING: Chief Complaint: Flank pain External records reviewed: Reviewed CT scan from today. It is not read by radiology but I reviewed my own accord Factors affecting care: Hypertension, CAD, colon cancer, status post right hemicolectomy Social determinants of health: none History obtained from others: none Consults: none [facility] Narrative: The patient was initially hemodynamically stable, afebrile and nontoxic- appearing. Exam with right lower quad TTP, no CVA tenderness. No peritoneal signs. Right testicular pain as well. I considered the following differential diagnosis: UTI, nephrolithiasis, pyelonephritis, musculoskeletal injury ALL IMAGES (IF OBTAINED) HAVE BEEN PERSONALLY REVIEWED AND INTERPRETED BY MYSELF. CBC without leukocytosis, severe anemia, no thrombocytopenia. CT scan abdomen pelvis shows extensive metastatic burden but no acute surgical pathology noted Right testicle ultrasound shows no evidence of testicular mass, orchitis, epididymitis or testicular torsion urinalysis shows no evidence of urinary inflammation suggestive of UTI CBC with no leukocytosis to suggest a setting of the patient, no anemia or throm bocytopenia noted BMP with baseline hyponatremia, no sign of endorgan hypoperfusion or metabolic acidosis Lactate is wnl indicating no end-organ hypoperfusion and/or hypoxia. LFTs show no evidence of hepatobiliary pathology. Lipase is wnl indicating no pancreatic inflammation. No definitive acute surgery pathology noted in the abdomen specifically no sign of nephrolithiasis, pyelonephritis, testicular torsion or other intratesticular pathology. Suspect the patient symptoms related to significant metastatic burden. Will encourage close outpatient oncology and pain management follow-up. The patient and/or family, caregivers express understanding. The patient and/or family, caregivers agrees with the plan. Shared decision making: I will have a discussion with the patient and or visitors regarding risk/benefits of further testing or admission. They will be made aware of of the risk/benefits inherent in this decision they will be given the opportunity to voice understanding. Total critical care time today provided was at least 0minutes. This excludes separately billable procedures. Critical care time (if documented) is secondary to the patient having high probability of clinically significant/life threatening deterioration in the patient's condition which required my urgent intervention. Impression: 1. Metastatic cancer 2. Right flank pain Dispo: Discharge home This note was generated with [employer] dictation software. It may contain incorrect words, spelling, and punctuation that were not noted in review of the chart prior to signing. Lab Data Labs: Laboratory Results - last 24 hr 10/24/24 10/24/24 18:20 18:30 WBC 8.7 RBC 4.25 L Hgb 13.1 Hct 37.0 L MCV 87.1 MCH 30.8 MCHC 35.4 RDW Std Deviation 39.6 RDW Coeff of Deepika 12.4 Plt Count 307 MPV 9.0 Immature Gran % (Auto) 0.500 Neut % (Auto) 77.1 H Lymph % (Auto) 12.7 L [place] % (Auto) 8.4 Eos % (Auto) 1.0 Baso % (Auto) 0.3 Absolute Neuts (auto) 6.7 Absolute Lymphs (auto) 1.10 Nucleated RBC % 0 Sodium 130 L Potassium 3.8 Chloride 92 L Carbon Dioxide 26.7 Anion Gap 11 BUN 11 Creatinine 0.94 Estim Creat Clear Calc 56.56 Est GFR (MDRD) Non-Af 82 BUN/Creatinine Ratio 11.6 Glucose 105 H Lactic Acid 1.1 Calcium 9.2 Total Bilirubin 0.55 AST 27 ALT 17 Alkaline Phosphatase 103 Total Protein 7.3 Albumin 4.3 Globulin 3.0 Albumin/Globulin Ratio 1.4 Lipase 28 Urine Color Straw Urine Clarity Clear Urine pH 8.0 Ur Specific [place] 1.010 Urine Protein 15 H Urine Glucose (UA) Normal Urine Ketones Negative Urine Occult Blood Negative Urine Nitrite Negative Urine Bilirubin Negative Urine Urobilinogen Normal Ur Leukocyte Esterase Negative Urine RBC 0-5 SEEN Urine WBC 0 SEEN Ur Squamous Epith Cells 0-5 SEEN Urine Bacteria 0 SEEN Urine Mucus 0 SEEN Radiography Diagnostic Testing: Clinical Impression(s) from Imaging Studies Testicular Ultrasound 10/24/24 18:11 IMPRESSION: NO SONOGRAPHIC EVIDENCE OF TESTICULAR TORSION. Reading Location: [facility] Discharge Plan Triage Chief Complaint: Flank Pain ED Provider: Jerry Hightower Dx/Rx/DC Orders Clinical Impression: Metastatic cancer Prescriptions: No Action metoprolol tartrate 50 mg tablet 25 mg PO QDAY amlodipine 5 mg tablet 5 mg PO DAILY ferrous sulfate [Iron (ferrous sulfate)] 325 mg (65 mg iron) tablet 325 mg PO DAILY 30 Days Qty: 60 5RF clonidine HCl 0.1 mg tablet 0.1 mg PO DAILY PRN (Reason: hbp) Patient Comments: pt states he only takes if bp is over 200+ Primary Care Provider: Tami Omalley Referrals: Tami Omalley, [employer] [Primary Care Provider] - Print Language: Bhutanese
--- NOTE | 2024-10-24 18:11 | US_ITS ---
PROCEDURE: TESTICULAR WITH ARTERIAL FLOW 10/24/2024 REASON FOR EXAM: 79-year-old male, right testicular pain. TECHNIQUE: Palencia scale imaging and color and spectral Doppler analysis of the scrotal contents. COMPARISON: Same day CT abdomen pelvis. FINDINGS: RIGHT testicle: 4.3 x 3.0 x 2.2 cm Homogeneous echotexture. No intratesticular mass. Right epididymis: Unremarkable Small right hydrocele. LEFT testicle: 4.0 x 3.0 x 2.0 cm Homogeneous echotexture. No intratesticular mass. Left epididymis: Unremarkable Moderate left hydrocele. Other findings: No large varicocele. DOPPLER FINDINGS: Symmetric color doppler blood flow signal at both testes. Normal arterial inflow and venous outflow waveforms at both testes. US/Testicular with Arterial Flow IMPRESSION: NO SONOGRAPHIC EVIDENCE OF TESTICULAR TORSION. Reading Location: [id number]
[2024-10-24 18:28] LABS: Absolute Neutrophil Count 6.7 X10^3/uL (2.0-7.7); Basophil# 0.03 X10^3/uL; Basophil% 0.3 % (0-1); Eosinophil# 0.09 X10^3/uL; Hemoglobin 13.1 g/dL (13.0-16.5); Lymphocyte % 12.7 % (19-41); Mean Corp Hgb Conc 35.4 g/dL (32-36); Mean Corpuscular Hgb 30.8 pg (27.0-32.0); Mean Corpuscular Volume 87.1 fL (80-94); Monocyte# 0.73 X10^3/uL; Monocyte% 8.4 % (0-10); NRBC Flagged by Analyzer 0 % (0-5); Neutrophil # 6.67 X10^3/uL (2.7-7.7); Neutrophil % 77.1 % (47-70); Platelet Count 307 K/mm3 (150-450); RBC Distribution Width CV 12.4 % (11.6-14.6); RBC Distribution Width SD 39.6 fl (35.1-43.9); Red Blood Count 4.25 M/mm3 (4.6-6.2); White Blood Count 8.7 K/mm3 (4.4-11.0)
[2024-10-24] MEDS: Ondansetron 4 MG/2 ML Vial IV (18:29)
[2024-10-24] MEDS: 0.9% Normal Saline (1000mL) 1,000 ML 999 ML IV (18:29)
[2024-10-24] MEDS: Ketorolac 15 MG/ML Vial IV (18:29)
[2024-10-24 18:38] LABS: Bacteria 0 SEEN /hpf (None Seen); Mucous, Urine 0 SEEN /hpf (<or=2+); White Blood Cells 0 SEEN /hpf (0-5)
[2024-10-24 18:41] LABS: Color, Urine Straw (Yellow); Glucose, Dipstick Normal (Normal); Ketone-Dipstick Negative (Negative); Leukocyte Esterase-Dipstick Negative /ul (Negative); Nitrite-Dipstick Negative (Negative); Occult Blood-Urine Negative /ul (Negative); Protein-Dipstick 15 mg/dl (Negative); Urine Bilirubin Dipstick Negative (Negative); Urine Clarity Clear (Clear); Urine Urobilinogen Normal (Normal)
[2024-10-24 18:47] LABS: ALB/GLOB Ratio 1.4 RATIO (0.9-2.4); AST(SGOT) 27 U/L (<=37); Alanine Aminotransfer ALT/SGPT 17 U/L (<=46); Albumin, Serum 4.3 g/dL (3.4-4.8); Alkaline Phosphatase 103 U/L (40-129); Anion Gap 11 (5-15); BUN 11 mg/dL (4-19); BUN/Creat Ratio 11.6 RATIO (10-20); Calcium,Total 9.2 mg/dL (7.6-11.0); Carbon Dioxide 26.7 mmol/L (21.0-32.0); Chloride 92 mmol/L (98-108); Creatinine, Serum 0.94 mg/dL (0.70-1.20); EST Glomerular Filtration Rate 82 (>60); Estimated Creatinine Clearance 56.56 ml/min (50-250); Glucose 105 mg/dL (70-99); Lipase 28 U/L (13-75); Potassium 3.8 mmol/L (3.3-5.1); Protein, Total 7.3 g/dL (5.9-8.4); Sodium Level 130 mmol/L (133-145); Total Bilirubin 0.55 mg/dL (0.00-1.30)
[2024-10-24 18:53] LABS: Red Blood Cells-Urine 0-5 SEEN /hpf (0-5); Squamous Epithelial Cells - UA 0-5 SEEN /hpf (0-5)
[2024-10-24 19:06] LABS: Lactic Acid 1.1 mmol/L (0.0-2.0)
[2024-10-24 20:51] VITALS: BP 126/73; PULSE 72; RESP 18; TEMP 36.7; O2SAT 98
== END 2024-10-24 20:53 | disposition home or self-care (01) ==
PROVIDERS: Emergency Provider Emergency Medicine; PCP Nurse Practitioner Family; Visit Provider Emergency Medicine
DX: R10.31 Right lower quadrant pain (principal); I25.10 Atherosclerotic heart disease of native coronary artery without angina pectoris; I10 Essential (primary) hypertension; Z87.891 Personal history of nicotine dependence; Z86.73 Personal history of transient ischemic attack (TIA), and cerebral infarction without residual deficits; Z98.52 Vasectomy status; Z79.899 Other long term (current) drug therapy; Z90.49 Acquired absence of other specified parts of digestive tract; Z95.1 Presence of aortocoronary bypass graft; Z85.038 Personal history of other malignant neoplasm of large intestine
CPT/HCPCS: 76870; 80053; 81001; 83605; 83690; 85025; 93976; 96361; 96374; 96375; 99283; A4216; J2405

== ENCOUNTER → 2024-10-24 | Outpatient (CLI) | payer SELFPAY ==
--- NOTE | 2024-10-24 14:05 | CT_ITS ---
PROCEDURE: ABDOMEN/PELVIS W IV CONT ONLY 10/24/2024 REASON FOR EXAM: 79-year-old male, follow-up colon cancer, history of partial colectomy 2 months ago, patient reporting right kidney pain. TECHNIQUE: Abdomen and pelvis CT without and with intravenous contrast. Coronal and Sagittal reconstruction series were provided. PATIENT PREPARATION: Per protocol ORAL CONTRAST TYPE: None. CONTRAST: Isovue-300 VOLUME: 100mL One or more dose reduction techniques were used (e.g., Automated exposure control, adjustment of the mA and/or kV according to patient size, use of iterative reconstruction technique. RADIATION DOSE SUMMARY: CTDlvol: 26 mGy DLP: 230 mGycm COMPARISON: CT abdomen pelvis 06/08/2024. FINDINGS: Lung bases: Bibasilar atelectasis. Partially visualized prior median sternotomy and CABG. The heart is normal in size. Liver: The liver is normal in size with several ill-defined hypodensities throughout the left and right hepatic lobes. The largest lesion is within segment 4A along the hepatic dome, measuring 2.3 x 2.2 cm (series 2, image 15). The major portal vein is patent. No biliary ductal dilation. Gallbladder: No radiopaque stones within the gallbladder. Spleen: Normal in size. Pancreas: The pancreatic body/tail is unremarkable. There is a large, ill- defined soft tissue mass which partially encases the pancreatic head and neck, and is centered within the central mesentery. The mass measures at least 4.7 x 4.2 cm (series 2, image 43). The mass does not appear to arise from the pancreas, however. There is encasement and obliteration of the SMV with reconstitution just proximal to the portal confluence. Adrenals: Nodular thickening of the left adrenal gland. Unremarkable right adrenal gland. Kidneys: Right renal calcification, likely vascular. No hydronephrosis or nephrolithiasis. Bladder: Distended and unremarkable. Reproductive Organs: The prostate is mildly enlarged. Bowel: Prior large bowel resection and anastomosis within the right upper quadrant. Small soft tissue mass adjacent to the bowel anastomosis measuring approximately 1.4 x 1.2 cm (series 2, image 50). The bowel loops are normal in caliber. Trace pelvic ascites. No free air. Probable prior appendectomy. Distal colonic diverticulosis. Lymph nodes: Pathologic retroperitoneal, retrocaval, periportal and mesenteric lymphadenopathy. Vasculature: Marked mixed calcific plaque of the aortoiliac vessels. Occlusion of the SMV as described above. Bones: Thoracolumbar spondylosis. Mild subcutaneous thickening of the midline anterior abdominal wall, compatible with recent surgery. CT/Abdomen/Pelvis W IV Cont ONLY IMPRESSION: 1. Recent bowel resection and anastomosis for colon cancer with development of diffuse abdominal lymphadenopathy and hepatic lesions, compatible with maggie and hepatic metastatic disease. Nodular thicken ing of the left adrenal gland, which is indeterminate but may represent adrenal metastatic disease. 2. Large central mesenteric mass which partially encases, but does not appear t o arise from the pancreatic head and neck. 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 Additional differential diagnosis includes pancreatic adenocarcinoma. Consider endoscopic biopsy given location of mass. 3. 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 4. Soft tissue mass adjacent to the bowel anastomosis, which is indeterminate a nd may represent site of fat necrosis or soft tissue thickening from recent surgery, however peritoneal metastasis can not be excluded. Attention on follow-up imaging recommended. Reading Location: [id number]
== END | disposition home or self-care (01) ==
LOC: CT 13:48
PROVIDERS: PCP Nurse Practitioner Family; Referring Provider Internal Medicine Medical Oncology; Visit Provider Internal Medicine Medical Oncology
DX: C18.9 Malignant neoplasm of colon, unspecified (principal); C77.2 Secondary and unspecified malignant neoplasm of intra-abdominal lymph nodes
CPT/HCPCS: 74177; Q9967

== ENCOUNTER 2024-11-05 22:19 | Inpatient (IN) | payer MEDICARE, SELFPAY ==
[2024-11-05 22:21] VITALS: BP 158/79; PULSE 84; RESP 18; TEMP 36.5; O2SAT 100; BMI 25.7
--- NOTE | 2024-11-05 22:46 | CT_ITS ---
PROCEDURE: CTA ABD/PELVIS W/WO CONTRAST 11/05/2024 REASON FOR EXAM: GI BLEED TECHNIQUE: CTA imaging of the abdomen and pelvis with intravenous contrast. Coronal and Sagittal reconstruction series were provided. 3D, 3D post processing, 3D reconstructions, Maximum intensity projection (MIPs) Volume rendering and Shaded surface rendering was provided. CONTRAST: Omnipaque 350 VOLUME: 100 mL Not Provided Gauge IV One or more dose reduction techniques were used (e.g., Automated exposure control, adjustment of the mA and/or kV according to patient size, use of iterative reconstruction technique). COMPARISON: CT abdomen and pelvis 10/24/2024 and CTA chest, abdomen and pelvis 06/08/2024 FINDINGS: Aorta: Moderate-severe mixed calcified and soft plaque. No abdominal aortic aneurysm. No evidence of dissection. Iliac Arteries: Severe diffuse atherosclerotic plaque. No aneurysm or significant stenosis. Celiac: Mild atherosclerotic calcification at the ostium. 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 Diffuse atherosclerotic calcification involving the splenic artery. The common and proper hepatic arteries are within normal limits. SMA: Moderate-severe atherosclerotic calcification of the ostium with noncalcified thrombus along the proximal aspect and resultant moderate luminal narrowing. ALICIA : Normal. Right Renal: Mild mixed calcified and soft plaque identified. Left Renal: Mild mixed calcified and soft plaque identified. Lung bases: Unremarkable Liver: Heterogenous attenuation. Multiple unchanged low-attenuation bilobar lesions, several of which demonstrate peripheral calcification.. Bile ducts: No intrahepatic or extrahepatic bile duct dilation. Gallbladder: No calcified gallstones. No gallbladder wall thickening or pericholecystic fluid. Spleen: Within normal limits. Pancreas: Redemonstration of a 4.0 x 4.0 cm soft tissue mesenteric mass, abutting the pancreatic head and partially encasing the distal SMA. Similar to the CT from 10/24/2024, the mass encases the SMA, extending to the root, of the mesentery with limited distal opacification. Adrenal glands: [id number]-right adrenal thickening. Kidneys/Ureters: Symmetric bilateral renal enhancement. No hydronephrosis or renal calculi. No hydroureter. Bladder: Within normal limits Reproductive: Mild prostatomegaly. Lymph nodes: Stable extensive retroperitoneal adenopathy, not significantly changed since prior. Bowel: Stomach is unremarkable. No bowel dilation or wall thickening. Colonic diverticulosis without diverticulitis. Postoperative changes partial colonic resection with transverse colon anastomosis. There is an unchanged 15 x 11 mm soft tissue lesion (series 2 image 76) just lateral to the anastomosis. Peritoneum: No free air, ascites, or fluid collection. Retroperitoneum: Within normal limits. Abdominal wall: Soft tissue attenuation lesion anterior left abdominal wall.. Bones: Mild multilevel degenerative changes of the lumbar spine.. Maintained vertebral body heights. CT/CTA Abd/Pelvis W/WO Contrast IMPRESSION: 1. Extensive calcified and noncalcified plaque throughout the abdominal aorta a nd iliac arteries without evidence of acute dissection or aneurysm. 2. 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 And o ther findings as described above. 3. Multiple uncinate bilobar low-attenuation hepatic lesions, concerning for me tastasis. 4. Stable large central mesenteric mass with obscuration of the SMV as describe d above. 5. Extensive retroperitoneal adenopathy, unchanged. 6. Other stable findings as described above. Reading Location: [id number]
[2024-11-05] MEDS: 0.9% Normal Saline (500mL Bag) 500 ML 999 ML IV (23:19)
[2024-11-05] MEDS: Famotidine 200 MG/20 ML MDV 20 MG in 0.9% Normal Saline (Pres. free 8 ML 300 MG IV (23:19)
[2024-11-05 23:20] LABS: Absolute Lymphocyte Count 1.16 X10^3/uL (0.83-4.51); Absolute Neutrophil Count 6.9 X10^3/uL (2.0-7.7); Basophil# 0.02 X10^3/uL; Basophil% 0.2 % (0-1); Eosinophil# 0.05 X10^3/uL; Eosinophils% 0.6 % (0-5); Hematocrit 32.9 % (40-54); Hemoglobin 11.5 g/dL (13.0-16.5); Lymphocyte # 1.16 X10^3/ul (0.83-4.51); Lymphocyte % 12.9 % (19-41); Mean Corpuscular Hgb 30.5 pg (27.0-32.0); Mean Corpuscular Volume 87.3 fL (80-94); Mean Platelet Vol. 8.7 fl (6.2-12.0); Monocyte% 8.9 % (0-10); NRBC Flagged by Analyzer 0 % (0-5); Neutrophil # 6.89 X10^3/uL (2.7-7.7); Neutrophil % 76.8 % (47-70); Platelet Count 274 K/mm3 (150-450); RBC Distribution Width CV 12.2 % (11.6-14.6); Red Blood Count 3.77 M/mm3 (4.6-6.2)
[2024-11-05 23:20] LABS: International Normalized Ratio 0.9; Partial Thromboplast Time 22.1 Seconds (24.1-36.2); Prothrombin Time (Protime)PT. 12.2 SECONDS (11.7-14.9)
[2024-11-05 23:21] VITALS: PULSE 81; RESP 18; O2SAT 99
[2024-11-05 23:23] LABS: Anion Gap 12 (5-15); BUN 14 mg/dL (4-19); BUN/Creat Ratio 15.4 RATIO (10-20); Carbon Dioxide 23.8 mmol/L (21.0-32.0); Chloride 90 mmol/L (98-108); Creatinine, Serum 0.92 mg/dL (0.70-1.20); EST Glomerular Filtration Rate 84 (>60); Estimated Creatinine Clearance 59.87 ml/min (50-250); Glucose 110 mg/dL (70-99); Sodium Level 126 mmol/L (133-145)
[2024-11-05 23:25] LABS: Lactic Acid < 1.0 mmol/L (0.0-2.0)
[2024-11-05 23:49] VITALS: BP 173/75; PULSE 75; RESP 18; O2SAT 100
[2024-11-06] VITALS (18 sets, daily range): BP systolic 131–195; BP diastolic 70–95; PULSE 70–87; RESP 16–18; TEMP 36.6–37.4; O2SAT 96–100; BMI 24.8
--- NOTE | 2024-11-06 01:45 | PCM.HP.STD ---
[facility] - General General Date of Admission: 11/06/24 Date of Service: 11/06/24 Chief Complaint: Watery Diarrhea and LGIB. HPI Narrative JARED PEREZ, is a 79 M with a past medical history essential hypertension; on amlodipine, metoprolol and as needed clonidine daily, overweight; with BMI of 25.7 this admission, history of tobacco abuse, CAD; s/p CABG x 5, history of TIA/CVA, PVD; with claudication of both LE's, neuropathy, medical noncompliance, chronic constipation, history of appendectomy, remote history of colonoscopy ~10 years ago; with polyp noted at that time, OA, history of admission here from April 14, 2024 to April 15, 2024 for treatment of ABLA with BRBPR requiring transfusion with hemoglobin of 6.7 g/dL present on admission with CT of the abdomen positive for masslike wall thickening of the ascending colon up to ~4.5 cm suspicious for malignancy with possible metastatic lesion noted in the liver with patient subsequently undergoing colonoscopy by Dr. Silvestre of gastroenterology that noted diverticulosis in the sigmoid colon with malignant partially obstructing tumor at the hepatic flexure that was biopsied and tattooed with patient set up to follow-up with general surgery as an outpatient; s/p Right hemicolectomy April 28, 2024 with patient recommended for adjuvant chemotherapy after he was noted to have metastases to his lymph nodes with subsequent PET/CT revealing metastases to his GE junction complicated by elevated troponin up to 123 pg/mL suspected to be due to demand ischemia from acute anemia with echocardiogram revealing LVEF ~70% followed by another more recent admission here from June 08, 2024 to June 10, 2024 for treatment of syncopal episodes who now returns to [facility] ER complaining of watery diarrhea and LGIB. Mr. Perez reports his symptoms began approximately 6 days prior to admission with the abrupt-onset of watery diarrhea several times per day with intermittent moderate, generalized, cramping abdominal pain. Then earlier in the evening of November 05, 2024 he had a large bright red bowel movement so he decided to come in for further evaluation and treatment. There was no report of associated fever, chills, nausea, vomiting, constipation, chest pain, shortness of breath, headache or recent antibiotic use. In the ER he was diagnosed with Watery Diarrhea; presumed to be of infectious origin followed by recurrent LGIB with BRBPR with a hemoglobin of 11.5 g/dL present on admission complicated by clinical evidence of Uncontrolled Hypertension of 195/90 mmHg noted shortly after admission and he was then admitted to the PCU for a stay that is expected to extend beyond 2 midnights. [facility] Medical History (Updated 11/06/24 @ 06:[address] Darrel Carpenter DO) Encounter for education Pre-op testing Wears dentures Arthritis Anemia Gastric reflux Former smoker History of edema History of echocardiogram History of stress test Cardiology follow-up encounter Aortic stenosis Preop cardiovascular exam Colon cancer Overweight (BMI 25.0-29.9) Colonic mass Coronary artery disease 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 Chronic hypertension Acute alteration in mental status Neuropathy Vasectomy planned Hyponatremia TIA (transient ischemic attack) CVA (cerebral vascular accident) Hypertension History of stroke Tobacco use Benign essential hypertension Home Medications ?Medication ?Instructions ?Recorded ?Last Taken ?Type amlodipine 5 mg tablet 5 mg PO DAILY HEART 05/16/24 11/05/24 History clonidine HCl 0.1 mg tablet 0.1 mg PO DAILY PRN hbp 06/08/24 10/06/24 History ferrous sulfate 325 mg (65 mg 325 mg PO DAILY 30 days #60 tabs 06/10/24 11/05/24 Rx iron) tablet (Iron (ferrous sulfate)) metoprolol tartrate 50 mg tablet 25 mg PO QDAY Blood pressure/heart 10/17/24 11/05/24 History rat oxycodone 5 mg tablet 5 mg PO Q6H PRN pain 7 days #28 10/24/24 Unknown Rx tabs Allergy/AdvReac Type Severity Reaction Status Date / Time fentanyl AdvReac Low blood Verified 11/06/24 03:59 pressure Family History Father Arthritis Alcohol abuse Mother Alcohol abuse Liver disease Surgical History History of hemicolectomy (04/25/24) H/O vasectomy S/P right hemicolectomy History of tonsillectomy History of appendectomy 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) Social History Smoking Status: Former smoker alcohol intake: never substance use type: does not use ROS ROS Narrative Review of Systems: Constitutional: Patient denies fever or chills. Eyes: Patient denies changes in vision or discharge from eyes. ENT: Patient denies runny nose, sore throat or ear pain. Resp: Patient denies shortness of breath or cough. CV: Patient denies chest pain, potation's, heart racing, syncope or lower extremity edema. GI: Patient admits to watery diarrhea for 6 days followed by LGIB with BRBPR as per HPI. He admits to intermittent lower abdominal pain. He denies nausea, vomiting or constipation. : Patient denies dysuria or hematuria. MSK: Patient denies arthralgias or myalgias. Skin: Patient denies rash, abscess, wounds or jaundice. Psych: Patient denies symptoms of uncontrolled depression or anxiety. Neuro: Patient denies headache, paresthesias or focal neurologic deficits. Allergy: Patient denies lip swelling, tongue swelling or urticaria. Hematology: Patient admits to LGIB with BRBPR as per HPI. Endocrinology: Patient denies polyuria, polydipsia, polyphagia or heat/cold intolerance. 14 point ROS otherwise negative except for positives noted above in HPI. Vital Signs Vital Signs Vital Signs: 11/05/24 22:21 11/05/24 23:21 11/05/24 23:49 Temperature 97.7 F L Temperature Source Oral Pulse Rate 84 81 75 Respiratory Rate 18 18 18 Blood Pressure 158/79 H 173/75 H Blood Pressure Mean 105 107 Pulse Ox 100 99 100 Oxygen Delivery Method Room Air Room Air Room Air 11/06/24 00:00 11/06/24 00:36 11/06/24 01:00 Temperature 98.3 F Temperature Source Pulse Rate 75 77 Respiratory Rate 18 18 Blood Pressure 173/95 H 169/76 H 169/71 H Blood Pressure Mean 121 107 103 Pulse Ox 98 99 Oxygen Delivery Method Room Air Weight Weight: 163 lb 14.4 oz Body Mass Index (BMI) 25.7 Physical Exam Const alert, oriented x3, no apparent distress and average body habitus Constitutional Narrative: Patient has chronically ill appearance. General Appearance: cooperative HEENT normocephalic, head/scalp atraumatic, hearing grossly normal bilaterally and moist oral mucous membranes Eyes PERRL and EOMs intact bilaterally Neck no lymphadenopathy and supple Resp normal respiratory effort, no retractions, no use of accessory muscles and clear to auscultation bilaterally Cardio regular rate and regular rhythm GI normal to inspection, nondistended, normoactive bowel sounds, soft to palpation, non-tender and non-distended Extremity normal to inspection, full ROM and no clubbing, cyanosis or edema Skin Skin Narrative: Patient has evidence of rash, abscess, wounds or jaundice. Neuro oriented x3, CN's II-XII intact bilaterally, moves all extremities and no focal motor deficits Sensorium / Orientation: awake, alert, oriented to person, oriented to place and oriented to time Speech: speech normal Psych affect normal Results Medical Records Data Attestation: I reviewed the patient's medical records Lab / Micro Data Attestation: I reviewed the patient's lab results. 11/06/24 04:23 11/06/24 04:23 Labs: Laboratory Results - last 24 hr 11/05/24 22:42: WBC Cancelled, Corrected WBC Cancelled, RBC Cancelled, Hgb Cancelled, Hct Cancelled, MCV Cancelled, MCH Cancelled, MCHC Cancelled, RDW Std Deviation Cancelled, RDW Coeff of Deepika Cancelled, Plt Count Cancelled, MPV Cancelled, Immature Gran % (Auto) Cancelled, Neut % (Auto) Cancelled, Lymph % (Auto) Cancelled, Noble % (Auto) Cancelled, Eos % (Auto) Cancelled, Baso % (Auto) Cancelled, Absolute Neuts (auto) Cancelled, Absolute Lymphs (auto) Cancelled, Total Counted Cancelled, Neutrophils % (Manual) Cancelled, Band Neutrophils % Cancelled, Lymphocytes % (Manual) Cancelled, Monocytes % (Manual) Cancelled, Eosinophils % (Manual) Cancelled, Basophils % (Manual) Cancelled, Metamyelocytes % Cancelled, Myelocytes % Cancelled, Promyelocytes % Cancelled, Blast Cells % Cancelled, Plasma Cell % (Manual) Cancelled, Other Cells % Cancelled, Nucleated RBC % Cancelled, Nucleated RBCs/100 WBC Cancelled, Differential Comment Cancelled, Diff Path Review Cancelled, Hypersegmented Neuts Cancelled, Atypical Lymphocytes Cancelled, Reactive Lymphocytes Cancelled, Smudge Cells Cancelled, Toxic Granulation Cancelled, Toxic Vacuolation Cancelled, Dohle Bodies Cancelled, Deepa Rods Cancelled, Platelet Estimate Cancelled, Plt Morphology Comment Cancelled, RBC Morphology Cancelled 11/05/24 22:42: RBC Morphology Cancelled, Polychromasia Cancelled, Hypochromasia Cancelled, Basophilic Stippling Cancelled, Anisocytosis Cancelled, Microcytosis Cancelled, Macrocytosis Cancelled, Spherocytes Cancelled, Sickle Cells Cancelled, Target Cells Cancelled, Tear Drop Cells Cancelled, Ovalocytes Cancelled, Stomatocytes Cancelled, [place] Bodies Cancelled, Tani Cells Cancelled, Bite Cells Cancelled, Crenated Cell Cancelled, Acanthocytes (Spur) Cancelled, Rouleaux Cancelled, Schistocytes Cancelled, PT 12.2, INR 0.9, APTT 22.1 L, Sodium 126 L, Potassium 4.0, Chloride 90 L, Carbon Dioxide 23.8, Anion Gap 12, BUN 14, Creatinine 0.92, Estim Creat Clear Calc 59.87, Est GFR (MDRD) Non-Af 84, BUN/Creatinine Ratio 15.4, Glucose 110 H, Lactic Acid < 1.0, Calcium 9.0, Blood Type O POSITIVE, Antibody Screen NEGATIVE 11/05/24 23:15: WBC 9.0, RBC 3.77 L, Hgb 11.5 L, Hct 32.9 L, MCV 87.3, MCH 30.5, MCHC 35.0, RDW Std Deviation 39.0, RDW Coeff of Deepika 12.2, Plt Count 274, MPV 8.7, Immature Gran % (Auto) 0.600, Neut % (Auto) 76.8 H, Lymph % (Auto) 12.9 L, Noble % (Auto) 8.9, Eos % (Auto) 0.6, Baso % (Auto) 0.2, Absolute Neuts (auto) 6.9, Absolute Lymphs (auto) 1.16, Nucleated RBC % 0 Micro: Microbiology 11/05/24 23:44 Stool Stool Occult Blood ([facility]) - Final Occult Blood Positive Imaging Radiology Impression Abdomen/Pelvis CTA 11/05/24 22:46 IMPRESSION: 1. Extensive calcified and noncalcified plaque throughout the abdominal aorta and iliac arteries without evidence of acute dissection or aneurysm. 2. 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 And other findings as described above. 3. Multiple uncinate bilobar low-attenuation hepatic lesions, concerning for metastasis. 4. Stable large central mesenteric mass with obscuration of the SMV as described above. 5. Extensive retroperitoneal adenopathy, unchanged. 6. Other stable findings as described above. Reading Location: [facility] Assessment & Plan Assessment/Plan (1) GI (gastrointestinal bleed): QUALIFIERS: GI bleed type/associated pathology: unspecified gastrointestinal hemorrhage type Qualified Code(s): K92.2 - Gastrointestinal hemorrhage, unspecified (2) Anemia: QUALIFIERS: Anemia type: unspecified type Qualified Code(s): D64.9 - Anemia, unspecified (3) Abdominal pain: QUALIFIERS: Abdominal location: generalized Qualified Code(s): R10.84 - Generalized abdominal pain (4) 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: (5) Mediastinal lymphadenopathy: (6) Uncontrolled hypertension: (7) Medical non-compliance: (8) Hyponatremia: PLAN: Plan 1. LGIB with BRBPR; recurrent - Admit to PCU. Keep NPO for endoscopy in AM. Start IV pantoprazole 40 mg IV BID. Type & Screen blood and transfuse for hemoglobin <7 g/dL with hemoglobin of 11.5 g/dL present on admission. Check iron studies, B12 and Folate levels to evaluate anemia. Finally, we will consult gastroenterology to see this patient on rounds in the AM for further recommendations with help appreciated in advance. 2. Uncontrolled Hypertension of 195/90 mmHg noted shortly after admission complicating #1 - Give hydralazine IV prn for systolic blood pressure >160 mmHg. Unfortunately, patient refused initial dose of hydralazine send we are seeking alternative agent he will accept in the setting of medical noncompliance. 3. Hyponatremia of 126 mmol/L present on admission compounding #1 & #2 - Give NS IVF and recheck CMP in AM to follow trend. Check serum and urine osmolality. 4. History of admission here from April 14, 2024 to April 15, 2024 for treatment of ABLA with BRBPR requiring transfusion with hemoglobin of 6.7 g/dL present on admission with CT of the abdomen positive for masslike wall thickening of the ascending colon up to ~4.5 cm suspicious for malignancy with possible metastatic lesion noted in the liver with patient subsequently undergoing colonoscopy by Dr. Silvestre of gastroenterology that noted diverticulosis in the sigmoid colon with malignant partially obstructing tumor at the hepatic flexure that was biopsied and tattooed with patient set up to follow-up with general surgery as an outpatient; s/p Right hemicolectomy April 28, 2024 with patient recommended for adjuvant chemotherapy after he was noted to have metastases to his lymph nodes with subsequent PET/CT revealing metastases to his GE junction adding to the medical complexity of #1 - #3 - Noted. 5. History of elevated troponin up to 123 pg/mL suspected to be due to demand ischemia from acute anemia with echocardiogram revealing LVEF ~70% followed by another more recent admission here from June 08, 2024 to June 10, 2024 for treatment of syncopal episodes - Noted. 6. Essential hypertension; on amlodipine, metoprolol and as needed clonidine daily - Hold scheduled antihypertensives in light of #1. Give hydralazine IV prn for systolic blood pressure > 160 mmHg. 7. Overweight; with BMI of 25.7 this admission - Weight loss will be recommended. Check TSH. 8. History of tobacco abuse - Noted. 9. CAD; s/p CABG x 5 - Stable. Serialize troponin. 10. History of TIA/CVA - Noted. 11. PVD; with claudication of both LE's - Stable. 12. Neuropathy - Stable. 13. History of medical noncompliance - Noted. 14. Chronic constipation - Stable. 15. History of appendectomy - Noted. 16. Remote history of colonoscopy ~10 years ago; with polyp noted at that time - Noted. 17. OA - Noted. 18. DVT prophylaxis - SCD's only in light of #1. Total time: Approximately (but not less than) 75 minutes. Charges/Coding Visit Charges Inpatient E&M: 47493 Init Hosp L3
--- NOTE | 2024-11-06 01:51 | EDS_ITS ---
HPI History of Present Illness Chief Complaint: GI Bleed Informant: patient and family Narrative Narrative: Patient is an 79-year-old male with past medical history of hypertension and colon cancer. He states that today he went to the bathroom and he had a large amount of bright red blood. He states that this has happened 2 or 3 times since 8 PM. He reports that with his previous bout of blood per rectum he needed emergent surgery and multiple units of blood. Patient denies any history of bleeding disorder or blood thinner use. He denies any known sick contact. He states there is been no chest pain shortness of breath or dizziness or syncope. However with the recurrent episodes of blood per rectum he presents for evaluation. [facility] Medical History (Updated 11/06/24 @ 05:[address] 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 Chronic hypertension Acute alteration in mental status Neuropathy Vasectomy planned Hyponatremia TIA (transient ischemic attack) CVA (cerebral vascular accident) Hypertension History of stroke Tobacco use Benign essential hypertension Home Medications ?Medication ?Instructions ?Recorded ?Last Taken ?Type amlodipine 5 mg tablet 5 mg PO DAILY HEART 05/16/24 11/05/24 History clonidine HCl 0.1 mg tablet 0.1 mg PO DAILY PRN hbp 10/06/24 History ferrous sulfate 325 mg (65 mg 325 mg PO DAILY 30 days #60 tabs 06/10/24 11/05/24 Rx iron) tablet (Iron (ferrous sulfate)) metoprolol tartrate 50 mg tablet 25 mg PO QDAY Blood p ressure/heart 10/17/24 11/05/24 History rat oxycodone 5 mg tablet 5 mg PO Q6H PRN pain 7 days #28 10/24/24 Unknown Rx tabs Allergy/AdvReac Type Severity Reaction Status Date / Time fentanyl AdvReac Low blood Verified 11/06/24 03:59 pressure Family History Father Arthritis Alcohol abuse Mother Alcohol abuse Liver disease Surgical History History of hemicolectomy (04/25/24) H/O vasectomy S/P right hemicolectomy History of tonsillectomy History of appendectomy 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) Social History Smoking Status: Former smoker alcohol intake: never substance use type: does not use ROS ROS ED Constitutional Constitutional ED: Denies chills or fever(s) Eyes Eyes: Denies blurry vision or change in vision ENT ENT ED: Denies sore throat Cardiovascular Cardiovascular: Reports other Details: Negative syncope ; Denies chest pain, palpitations or racing heartbeat Respiratory/Chest Respiratory/Chest: Denies cough or dyspnea Gastrointestinal Gastrointestinal: Reports diarrhea and other Details: Positive bright red blood per rectum ; Denies abdominal pain, nausea or vomiting Genitourinary Genitourinary ED: Denies dysuria or hematuria Musculoskeletal Musculoskeletal: Denies back pain or myalgias Integumentary Denies rash Neurologic Neurologic: Denies headache(s) or weakness Hematologic/Lymphatic Hematologic/Lymphatic: Denies easy bleeding or easy bruising EXAM Physical Exam Const Vital Signs: 11/05/24 22:21 11/05/24 23:21 11/05/24 23:49 Temperature 97.7 F L Temperature Source Oral Pulse Rate 84 81 75 Respiratory Rate 18 18 18 Blood Pressure 158/79 H 173/75 H Blood Pressure Mean 105 107 Pulse Ox 100 99 100 Oxygen Delivery Method Room Air Room Air Room Air 11/06/24 00:00 11/06/24 00:36 11/06/24 01:00 Temperature 98.3 F Temperature Source Pulse Rate 75 77 Respiratory Rate 18 18 Blood Pressure 173/95 H 169/76 H 169/71 H Blood Pressure Mean 121 107 103 Pulse Ox 98 99 Oxygen Delivery Method Room Air Positive well nourished and well developed General Appearance ED: well developed; Negative for pallor HEENT HEENT Narrative: Normocephalic atraumatic Eyes PERRL and EOMs intact bilaterally General Eye ED: Negative for pale conjunctiva or scleral icterus Neck supple Neck Narrative: No nuchal rigidity or meningeal signs Resp normal respiratory effort and clear to auscultation bilaterally Cardio regular rate and regular rhythm Rate: other Other Details: Heart is regular rate and rhythm with a grade 5 out of 6 holosystolic murmur Radial and carotid pulses are equal and symmetric GI normal to inspection, nondistended, normoactive bowel sounds, non-tender, non- distended and no masses GI Narrative: No voluntary guarding or rigidity or pulsatile mass No peritoneal signs Auscultation: normoactive bowel sounds Palpation: soft Narrative: No anal fissure noted There is a nonthrombosed nonbleeding external hemorrhoid present Rectal tone is normal. No internal masses palpated Stool is mucousy and bright red in color and Hemoccult positive Back/Spine no CVA tenderness Extremity normal to inspection Neuro oriented x3, CN's II-XII intact bilaterally and no sensory deficits noted Sensorium / Orientation: alert Motor Exam: strength 5/5 throughout Psych mental status grossly normal Skin no rashes or lesions noted General Skin Exam: Negative for jaundice or pallor MDM MDM MDM Narrative Medical decision making narrative: Patient presented to the ER hypertensive but has a past medical history of this and otherwise vitals are stable. He was seen in the ER roughly 1 week ago for abdominal pain and had a CT scan at that time. This showed the return of the potential cancerous lesion and also large amount of colonic diverticulosis. The patient denies any pain associated with the bleeding indicating this is most likely diverticular in nature. In order to ensure he does not have acute blood loss anemia and required blood transfusion basic labs were obtained. In order to rule out a potential perforation or active diverticular bleeding site a CT of the abdomen and pelvis was ordered as well. Patient's hemoglobin is stable at 11.5 but chart review reveals that it was 13.1 just 1 week ago. The patient's BUN is normal going against an upper GI bleed and this correlates with the fact he has bright red blood per rectum. At this time the patient is hemodynamically stable his abdomen is soft and nonsurgical and his CT scan reveals the metast atic changes without obvious signs of infection or perforation or active bleeding area. However because his hemoglobin has dropped roughly 2 points in 7 days this is concerning especially as he is continued to have bloody bowel movements while in the ER. As there is concern he may progress to instability based on the recurrent bleeding and potentially require blood transfusion I did discuss the case with his team assistant Dr. Silvestre. He recommends that with his recurrent symptoms and already a hemoglobin drop of roughly 2 points that admission is the safest option with potential for inpatient colonoscopy. Secondary to this the case was discussed with the hospitalist who agrees to accept the patient for continued monitoring and care History & Record Review Discussion w/independent historian: Patient and Family Lab Data Attestation: I reviewed the patient's lab results. Labs: Laboratory Results - last 24 hr 11/05/24 11/05/24 11/05/24 22:42 22:42 23:15 WBC Cancelled 9.0 Corrected WBC Cancelled RBC Cancelled 3.77 L Hgb Cancelled 11.5 L Hct Cancelled 32.9 L MCV Cancelled 87.3 MCH Cancelled 30.5 MCHC Cancelled 35.0 RDW Std Deviation Cancelled 39.0 RDW Coeff of Deepika Cancelled 12.2 Plt Count Cancelled 274 MPV Cancelled 8.7 Immature Gran % (Auto) Cancelled 0.600 Neut % (Auto) Cancelled 76.8 H Lymph % (Auto) Cancelled 12.9 L [place] % (Auto) Cancelled 8.9 Eos % (Auto) Cancelled 0.6 Baso % (Auto) Cancelled 0.2 Absolute Neuts (auto) Cancelled 6.9 Absolute Lymphs (auto) Cancelled 1.16 Total Counted Cancelled Neutrophils % (Manual) Cancelled Band Neutrophils % Cancelled Lymphocytes % (Manual) Cancelled Monocytes % (Manual) Cancelled Eosinophils % (Manual) Cancelled Basophils % (Manual) Cancelled Metamyelocytes % Cancelled Myelocytes % Cancelled Promyelocytes % Cancelled Blast Cells % Cancelled Plasma Cell % (Manual) Cancelled Other Cells % Cancelled Nucleated RBC % Cancelled 0 Nucleated RBCs/100 WBC Cancelled Differential Comment Cancelled Diff Path Review Cancelled Hypersegmented Neuts Cancelled Atypical Lymphocytes Cancelled Reactive Lymphocytes Cancelled Smudge Cells Cancelled Toxic Granulation Cancelled Toxic Vacuolation Cancelled Dohle Bodies Cancelled Deepa Rods Cancelled Platelet Estimate Cancelled Plt Morphology Comment Cancelled RBC Morphology Cancelled Cancelled Polychromasia Cancelled Hypochromasia Cancelled Basophilic Stippling Cancelled Anisocytosis Cancelled Microcytosis Cancelled Macrocytosis Cancelled Spherocytes Cancelled Sickle Cells Cancelled Target Cells Cancelled Tear Drop Cells Cancelled Ovalocytes Cancelled Stomatocytes Cancelled [place] Bodies Cancelled Crane Cells Cancelled Bite Cells Cancelled Crenated Cell Cancelled Acanthocytes (Spur) Cancelled Rouleaux Cancelled Schistocytes Cancelled PT 12.2 INR 0.9 APTT 22.1 L Sodium 126 L Potassium 4.0 Chloride 90 L Carbon Dioxide 23.8 Anion Gap 12 BUN 14 Creatinine 0.92 Estim Creat Clear Calc 59.87 Est GFR (MDRD) Non-Af 84 BUN/Creatinine Ratio 15.4 Glucose 110 H Lactic Acid < 1.0 Calcium 9.0 Magnesium 2.3 H Blood Type O POSITIVE Antibody Screen NEGATIVE Radiography Diagnostic Testing: Clinical Impression(s) from Imaging Studies Abdomen/Pelvis CTA 11/05/24 22:46 IMPRESSION: 1. Extensive calcified and noncalcified plaque throughout the abdominal aorta and iliac arteries without evidence of acute dissection or aneurysm. 2. 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 And other findings as described above. 3. Multiple uncinate bilobar low-attenuation hepatic lesions, concerning for metastasis. 4. Stable large central mesenteric mass with obscuration of the SMV as described above. 5. Extensive retroperitoneal adenopathy, unchanged. 6. Other stable findings as described above. Reading Location: [facility] Management Discussion w/another healthcare provider: Hospitalist and Vice President [employer] Discharge Plan Dx/Rx/DC Orders Clinical Impression: GI (gastrointestinal bleed), Benign essential hypertension, Colon cancer, Hyponatremia, Diverticulosis Disposition Disposition: Acute Care Hospital [facility] Discharge Date/Time: 11/06/24 03:21
[2024-11-06 03:38] LABS: Magnesium 2.3 mg/dL (1.5-2.2)
[2024-11-06] MEDS: 0.9% Normal Saline (1000mL) 1,000 ML 70 ML IV (04:12)
[2024-11-06] MEDS: Pantoprazole Sodium 40 MG in 0.9% Normal Saline (100mL MB+) 100 ML 330 MG IV ×3 (04:30→22:19)
[2024-11-06 04:36] LABS: Absolute Lymphocyte Count 1.08 X10^3/uL (0.83-4.51); Absolute Neutrophil Count 5.9 X10^3/uL (2.0-7.7); Basophil# 0.02 X10^3/uL; Basophil% 0.3 % (0-1); Eosinophil# 0.11 X10^3/uL; Eosinophils% 1.4 % (0-5); Hematocrit 35.2 % (40-54); Hemoglobin 12.3 g/dL (13.0-16.5); Lymphocyte # 1.08 X10^3/ul (0.83-4.51); Lymphocyte % 13.7 % (19-41); Mean Corp Hgb Conc 34.9 g/dL (32-36); Mean Corpuscular Hgb 30.4 pg (27.0-32.0); Mean Corpuscular Volume 87.1 fL (80-94); Mean Platelet Vol. 8.7 fl (6.2-12.0); Monocyte# 0.77 X10^3/uL; Monocyte% 9.8 % (0-10); NRBC Flagged by Analyzer 0 % (0-5); Neutrophil # 5.89 X10^3/uL (2.7-7.7); Neutrophil % 74.5 % (47-70); Platelet Count 303 K/mm3 (150-450); RBC Distribution Width CV 12.2 % (11.6-14.6); RBC Distribution Width SD 39.1 fl (35.1-43.9); Red Blood Count 4.04 M/mm3 (4.6-6.2); White Blood Count 7.9 K/mm3 (4.4-11.0)
--- NOTE | 2024-11-06 04:39 | NURSING ---
Pt BP on admission 195/90. PRN hydralazine on SEP for BP >160. Pt refused states that this is his normal and he just needs some rest. Pt educated on the risks of high blood pressure and the goal range for BP. PT still refused. aware.
[2024-11-06 05:02] LABS: Troponin T High Sensitivity 18 ng/L (<=22)
[2024-11-06 05:19] LABS: Ferritin 138 ng/mL (37-417); Iron 50 ug/dL (65-175); Iron Binding Capacity,Total 270 ug/dL (250-450); Iron Binding Capacity,Unsat 220 ug/dL (228-428); Vitamin B12 790 pg/mL (180-914)
[2024-11-06 05:50] LABS: ALB/GLOB Ratio 1.4 RATIO (0.9-2.4); AST(SGOT) 22 U/L (<=37); Alanine Aminotransfer ALT/SGPT 14 U/L (<=46); Albumin, Serum 3.9 g/dL (3.4-4.8); Alkaline Phosphatase 101 U/L (40-129); Anion Gap 12 (5-15); BUN 14 mg/dL (4-19); BUN/Creat Ratio 14.4 RATIO (10-20); Calcium,Total 8.8 mg/dL (7.6-11.0); Carbon Dioxide 21.7 mmol/L (21.0-32.0); Chloride 96 mmol/L (98-108); Creatinine, Serum 0.97 mg/dL (0.70-1.20); EST Glomerular Filtration Rate 79 (>60); Estimated Creatinine Clearance 56.79 ml/min (50-250); Globulin 2.8 g/dL (2.2-4.2); Glucose 99 mg/dL (70-99); Phosphorus 2.6 mg/dL (2.7-4.5); Potassium 4.1 mmol/L (3.3-5.1); Protein, Total 6.7 g/dL (5.9-8.4); Sodium Level 130 mmol/L (133-145); Total Bilirubin 0.64 mg/dL (0.00-1.30)
[2024-11-06 06:14] LABS: Osmolality, Serum 279 mOsm/KG (280-301)
[2024-11-06 06:14] LABS: Osmolality, Urine 363 mOsm/KG
[2024-11-06 07:02] LABS: Troponin T High Sens 2 HR 23 ng/L (<=22)
--- NOTE | 2024-11-06 07:27 | PN.HOSP_ITS ---
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 Objective Data Objective Data Vital Signs: Vital Signs Temp Pulse Resp BP Pulse Ox O2 Del Method 36.7 C 87 18 169/70 H 100 Room Air 11/06/24 03:43 11/06/24 03:43 11/06/24 03:43 11/06/24 06:45 11/06/24 03:43 11/06/24 03:45 Oxygen Delivery Method Room Air Weight: 72 kg Body Mass Index (BMI) 24.8 Intake & Output: Intake and Output for Last 24 Hours 11/04/24 11/05/24 11/06/24 23:59 23:59 23:59 Intake Total 620 / 620 Balance 620 / 620 Lab / Micro Data 11/06/24 04:23 11/06/24 04:23 Labs: Laboratory Results - last 24 hr 11/05/24 22:42: WBC Cancelled, Corrected WBC Cancelled, RBC Cancelled, Hgb Cancelled, Hct Cancelled, MCV Cancelled, MCH Cancelled, MCHC Cancelled, RDW Std Deviation Cancelled, RDW Coeff of Deepika Cancelled, Plt Count Cancelled, MPV Cancelled, Immature Gran % (Auto) Cancelled, Neut % (Auto) Cancelled, Lymph % (Auto) Cancelled, Green % (Auto) Cancelled, Eos % (Auto) Cancelled, Baso % (Auto) Cancelled, Absolute Neuts (auto) Cancelled, Absolute Lymphs (auto) Cancelled, Total Counted Cancelled, Neutrophils % (Manual) Cancelled, Band Neutrophils % Cancelled, Lymphocytes % (Manual) Cancelled, Monocytes % (Manual) Cancelled, Eosinophils % (Manual) Cancelled, Basophils % (Manual) Cancelled, Metamyelocytes % Cancelled, Myelocytes % Cancelled, Promyelocytes % Cancelled, Blast Cells % Cancelled, Plasma Cell % (Manual) Cancelled, Other Cells % Cancelled, Nucleated RBC % Cancelled, Nucleated RBCs/100 WBC Cancelled, Differential Comment Cancelled, Diff Path Review Cancelled, Hypersegmented Neuts Cancelled, Atypical Lymphocytes Cancelled, Reactive Lymphocytes Cancelled, Smudge Cells Cancelled, Toxic Granulation Cancelled, Toxic Vacuolation Cancelled, Dohle Bodies Cancelled, Deepa Rods Cancelled, Platelet Estimate Cancelled, Plt Morphology Comment Cancelled, RBC Morphology Cancelled 11/05/24 22:42: RBC Morphology Cancelled, Polychromasia Cancelled, Hypochromasia Cancelled, Basophilic Stippling Cancelled, Anisocytosis Cancelled, Microcytosis Cancelled, Macrocytosis Cancelled, Spherocytes Cancelled, Sickle Cells Cancelled, Target Cells Cancelled, Tear Drop Cells Cancelled, Ovalocytes Cancelled, Stomatocytes Cancelled, [place] Bodies Cancelled, Tani Cells Cancelled, Bite Cells Cancelled, Crenated Cell Cancelled, Acanthocytes (Spur) Cancelled, Rouleaux Cancelled, Schistocytes Cancelled, PT 12.2, INR 0.9, APTT 22.1 L, Sodium 126 L, Potassium 4.0, Chloride 90 L, Carbon Dioxide 23.8, Anion Gap 12, BUN 14, Creatinine 0.92, Estim Creat Clear Calc 59.87, Est GFR (MDRD) Non-Af 84, BUN/Creatinine Ratio 15.4, Glucose 110 H, Lactic Acid < 1.0, Calcium 9.0, Magnesium 2.3 H, Blood Type O POSITIVE, Antibody Screen NEGATIVE 11/05/24 23:15: WBC 9.0, RBC 3.77 L, Hgb 11.5 L, Hct 32.9 L, MCV 87.3, MCH 30.5, MCHC 35.0, RDW Std Deviation 39.0, RDW Coeff of Deepika 12.2, Plt Count 274, MPV 8.7, Immature Gran % (Auto) 0.600, Neut % (Auto) 76.8 H, Lymph % (Auto) 12.9 L, Green % (Auto) 8.9, Eos % (Auto) 0.6, Baso % (Auto) 0.2, Absolute Neuts (auto) 6.9, Absolute Lymphs (auto) 1.16, Nucleated RBC % 0 11/06/24 04:23: WBC 7.9, RBC 4.04 L, Hgb 12.3 L, Hct 35.2 L, MCV 87.1, MCH 30.4, MCHC 34.9, RDW Std Deviation 39.1, RDW Coeff of Deepika 12.2, Plt Count 303, MPV 8.7, Immature Gran % (Auto) 0.300, Neut % (Auto) 74.5 H, Lymph % (Auto) 13.7 L, Green % (Auto) 9.8, Eos % (Auto) 1.4, Baso % (Auto) 0.3, Absolute Neuts (auto) 5.9, Absolute Lymphs (auto) 1.08, Nucleated RBC % 0, Sodium 130 L, Potassium 4.1, Chloride 96 L, Carbon Dioxide 21.7, Anion Gap 12, BUN 14, Creatinine 0.97, Estim Creat Clear Calc 56.79, Est GFR (MDRD) Non-Af 79, BUN/Creatinine Ratio 14.4, Glucose 99, Serum Osmolality 279 L, Calcium 8.8, Phosphorus 2.6 L, Iron 50 L, TIBC 270, Iron Saturation 19.0, Unsaturated IBC 220 L, Ferritin 138, Total Bilirubin 0.64, AST 22, ALT 14, Alkaline Phosphatase 101, Troponin T High Sens 18, Total Protein 6.7, Albumin 3.9, Globulin 2.8, Albumin/Globulin Ratio 1.4, Vitamin B12 790, TSH 1.900 11/06/24 04:50: Urine Osmolality 363 11/06/24 05:59: Troponin T Hi Sens 2 Hr 23 H Micro: Microbiology 11/05/24 23:44 Stool Stool Occult Blood ([facility]) - Final Occult Blood Positive Radiography Diagnostic Testing: Radiology Impression Abdomen/Pelvis CTA 11/05/24 22:46 IMPRESSION: 1. Extensive calcified and noncalcified plaque throughout the abdominal aorta and iliac arteries without evidence of acute dissection or aneurysm. 2. 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 And other findings as described above. 3. Multiple uncinate bilobar low-attenuation hepatic lesions, concerning for metastasis. 4. Stable large central mesenteric mass with obscuration of the SMV as described above. 5. Extensive retroperitoneal adenopathy, unchanged. 6. Other stable findings as described above. Reading Location: [facility] Physical Exam Const alert and no apparent distress HEENT head/scalp atraumatic and moist oral mucous membranes Resp normal respiratory effort, no retractions, no use of accessory muscles and clear to auscultation bilaterally Cardio regular rate, regular rhythm, S1 normal heart sound and S2 normal heart sound GI normal to inspection, nondistended, normoactive bowel sounds, soft to palpation, non-tender and non-distended Extremity normal to inspection and full ROM Neuro Sensorium / Orientation: awake and alert Assessment & Plan Assessment/Plan (1) GI (gastrointestinal bleed): QUALIFIERS: GI bleed type/associated pathology: unspecified gastrointestinal hemorrhage type Qualified Code(s): K92.2 - Gastrointestinal hemorrhage, unspecified PLAN: Hg stable. GI on consult. CTA A/P no obvious source of bleeding. Suspect lower source Follow up CBC. PLAN: Plan Colon cancer: * multiple uncinate bilobar hepatic lesions, concerning for metastasis. Stable large central mesenteri mass with obscuration of the SMV. Extensive retroperitoneal adenopathy, unchanged. * Last saw oncology 10/31. Stage IIIC. Per Dr. Hernandez's note, declined chemotherapy. Daughter wants him to try Ivermectin. Recommended for second opinion. Hypertensive urgency * resume amlodipine, metoprolol * PRN hydralazine VTE prophylaxis: SCDs. DW patient's at bedside. Charges/Coding Visit Charges Inpatient E&M: 68409 Subs Hosp L2
[2024-11-06 09:49] LABS: Troponin T High Sens 4 HR 19 ng/L (<=22)
[2024-11-06] MEDS: Metoprolol Tartrate 25 MG Tablet PO (09:51)
[2024-11-06] MEDS: amLODIPine 5 MG Tablet PO (09:51)
--- NOTE | 2024-11-06 11:56 | CASEMGMT ---
JENNIFER BOLTON Assessment Face to Face with patient for initial transition planning/care coordination assessment. JENNIFER BOLTON introduced self and role at [facility], pt voices understanding. Pt is A&Ox4 and is resting comfortably in bed and is calm. Pt at bedside. Care providers, pharmacy, and demographics verified. Admitting dx: LGIB with BRBPR, recurrent LACE Strata: 3 PCP: Tami Omalley Specialists: [facility] out of [place] for Macular Degeneration Preferred Pharmacy: [facility] Insurance: [facility] A Only Prescription Benefit: None. Pt states that he prefers to pay with his own money without help. Pt was educated about Good Rx in the case that he changes his mind. Pt denies concerns currently LNOK: Radha (W) Living Arrangements: Pt lives with his in a mobile home with one step to enter ADLs/IADLs: Ind Transportation: Self, family, friends. Denies concerns DME: Grab bars. Denies further DME uses or need at this time HHC/SNF: Denies hx or needs Pt?s goal: Home Plan: Home with pt once medically ready, anticipate no additional needs. 6-Click score is 24. Pt denies the need for HH or OP Tx at this time. Pt states that he feels safe returning home with his once he is able and denies further questions or concerns at this time. Report given to ENGINEERING INTERN CM. Marco Orellana RN, CM
[2024-11-06 16:37] LABS: Absolute Lymphocyte Count 0.59 X10^3/uL (0.83-4.51); Basophil# 0.02 X10^3/uL; Basophil% 0.3 % (0-1); Eosinophil# 0.02 X10^3/uL; Eosinophils% 0.3 % (0-5); Hematocrit 33.9 % (40-54); Hemoglobin 11.9 g/dL (13.0-16.5); Lymphocyte # 0.59 X10^3/ul (0.83-4.51); Lymphocyte % 9.1 % (19-41); Mean Corp Hgb Conc 35.1 g/dL (32-36); Mean Corpuscular Hgb 31.1 pg (27.0-32.0); Mean Corpuscular Volume 88.5 fL (80-94); Mean Platelet Vol. 9.1 fl (6.2-12.0); Monocyte# 0.77 X10^3/uL; Monocyte% 11.9 % (0-10); NRBC Flagged by Analyzer 0 % (0-5); Neutrophil # 5.04 X10^3/uL (2.7-7.7); Neutrophil % 78.1 % (47-70); POSITIVE DIFFERENTIAL YES; Platelet Count 290 K/mm3 (150-450); RBC Distribution Width CV 12.3 % (11.6-14.6); RBC Distribution Width SD 39.8 fl (35.1-43.9); Red Blood Count 3.83 M/mm3 (4.6-6.2); White Blood Count 6.5 K/mm3 (4.4-11.0)
--- NOTE | 2024-11-06 18:54 | CON.PCM.GI_ITS ---
HPI Consult Data Date of Consult: 11/06/24 HPI Narrative Reason for Consultation: GI bleed HPI Narrative: JARED PEREZ, is a 79 M who presents for the evaluation of lower GI bleed. He has a past medical history of hypertension and colon cancer. He states that today he went to the bathroom and he had a large amount of bright red blood. He states that this has happened 2 or 3 times since 8 PM. He reports that with his previous bout of blood per rectum he needed emergent surgery and multiple units of blood. Patient denies any history of bleeding disorder or blood thinner use. He denies any known sick contact. He states there is been no chest pain shortness of breath or dizziness or syncope. However with the recurrent episodes of blood per rectum he presents for evaluation. He originally presented to [facility] ED on 04/11/2024 with c/o hematochezia and anemia. CTA of the chest abdomen and pelvis with IV contrast on 04/11/2024 showed mass in the ascending colon, multiple nonspecific enlarged mediastinal nodes. He had colonoscopy on 04/13/2024 which showed an ulcerated, partially obstructing mass at the hepatic flexure. He underwent laparoscopic right hemicolectomy on 04/27/2024. Pathology showed invasive adenocarcinoma, tumor extends to the bistro serosal surface, with lymphovascular and perineural invasion, no gross tumor deposits, lymph nodes 15 out of 16 positive, MSI stable. Pathologic staging pT4 pN2b. 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 Chronic hypertension Acute alteration in mental status Neuropathy Vasectomy planned Hyponatremia TIA (transient ischemic attack) CVA (cerebral vascular accident) Hypertension History of stroke Tobacco use Benign essential hypertension Home Medications ?Medication ?Instructions ?Recorded ?Last Taken ?Type amlodipine 5 mg tablet 5 mg PO DAILY HEART 05/16/24 11/05/24 History clonidine HCl 0.1 mg tablet 0.1 mg PO DAILY PRN hbp 10/06/24 History ferrous sulfate 325 mg (65 mg 325 mg PO DAILY 30 days #60 tabs 06/10/24 11/05/24 Rx iron) tablet (Iron (ferrous sulfate)) metoprolol tartrate 50 mg tablet 25 mg PO QDAY Blood p ressure/heart 10/17/24 11/05/24 History rat oxycodone 5 mg tablet 5 mg PO Q6H PRN pain 7 days #28 10/24/24 Unknown Rx tabs Allergy/AdvReac Type Severity Reaction Status Date / Time fentanyl AdvReac Low blood Verified 11/06/24 03:59 pressure Family History Father Arthritis Alcohol abuse Mother Alcohol abuse Liver disease Surgical History History of hemicolectomy (04/25/24) H/O vasectomy S/P right hemicolectomy History of tonsillectomy History of appendectomy 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) Social History Smoking Status: Former smoker alcohol intake: never substance use type: does not use ROS Constitutional Constitutional: Denies fatigue, fever(s), poor appetite, weight gain or weight loss Gastrointestinal Gastrointestinal: Denies belching, bloating, change in bowel habits, change in stool character, chewing difficulty, coffee ground emesis, constipation, cramping, diarrhea, dyspepsia, dysphagia, early satiety, excessive flatus, fecal incontinence, heartburn, hematemesis, hematochezia, hemorrhoids, loose stools, melena, nausea, odynophagia, rectal bleeding, tenesmus, vomiting or weight changes Physical Exam Const alert and no apparent distress HEENT head/scalp atraumatic and moist oral mucous membranes Resp normal respiratory effort, no retractions, no use of accessory muscles and clear to auscultation bilaterally Cardio regular rate, regular rhythm, S1 normal heart sound and S2 normal heart sound GI normal to inspection, nondistended, normoactive bowel sounds, soft to palpation, non-tender and non-distended Extremity normal to inspection and full ROM Neuro Sensorium / Orientation: awake and alert Lab / Micro Data 11/06/24 16:30 11/06/24 04:23 Labs: Laboratory Results - last 24 hr 11/05/24 22:42: WBC Cancelled, Corrected WBC Cancelled, RBC Cancelled, Hgb Cancelled, Hct Cancelled, MCV Cancelled, MCH Cancelled, MCHC Cancelled, RDW Std Deviation Cancelled, RDW Coeff of Deepika Cancelled, Plt Count Cancelled, MPV Cancelled, Immature Gran % (Auto) Cancelled, Neut % (Auto) Cancelled, Lymph % (Auto) Cancelled, Davison % (Auto) Cancelled, Eos % (Auto) Cancelled, Baso % (Auto) Cancelled, Absolute Neuts (auto) Cancelled, Absolute Lymphs (auto) Cancelled, Total Counted Cancelled, Neutrophils % (Manual) Cancelled, Band Neutrophils % Cancelled, Lymphocytes % (Manual) Cancelled, Monocytes % (Manual) Cancelled, Eosinophils % (Manual) Cancelled, Basophils % (Manual) Cancelled, Metamyelocytes % Cancelled, Myelocytes % Cancelled, Promyelocytes % Cancelled, Blast Cells % Cancelled, Plasma Cell % (Manual) Cancelled, Other Cells % Cancelled, Nucleated RBC % Cancelled, Nucleated RBCs/100 WBC Cancelled, Differential Comment Cancelled, Diff Path Review Cancelled, Hypersegmented Neuts Cancelled, Atypical Lymphocytes Cancelled, Reactive Lymphocytes Cancelled, Smudge Cells Cancelled, Toxic Granulation Cancelled, Toxic Vacuolation Cancelled, Dohle Bodies Cancelled, Deepa Rods Cancelled, Platelet Estimate Cancelled, Plt Morphology Comment Cancelled, RBC Morphology Cancelled 11/05/24 22:42: RBC Morphology Cancelled, Polychromasia Cancelled, Hypochromasia Cancelled, Basophilic Stippling Cancelled, Anisocytosis Cancelled, Microcytosis Cancelled, Macrocytosis Cancelled, Spherocytes Cancelled, Sickle Cells Cancelled, Target Cells Cancelled, Tear Drop Cells Cancelled, Ovalocytes Cancelled, Stomatocytes Cancelled, [place] Bodies Cancelled, Tani Cells Cancelled, Bite Cells Cancelled, Crenated Cell Cancelled, Acanthocytes (Spur) Cancelled, Rouleaux Cancelled, Schistocytes Cancelled, PT 12.2, INR 0.9, APTT 22.1 L, Sodium 126 L, Potassium 4.0, Chloride 90 L, Carbon Dioxide 23.8, Anion Gap 12, BUN 14, Creatinine 0.92, Estim Creat Clear Calc 59.87, Est GFR (MDRD) Non-Af 84, BUN/Creatinine Ratio 15.4, Glucose 110 H, Lactic Acid < 1.0, Calcium 9.0, Magnesium 2.3 H, Blood Type O POSITIVE, Antibody Screen NEGATIVE 11/05/24 23:15: WBC 9.0, RBC 3.77 L, Hgb 11.5 L, Hct 32.9 L, MCV 87.3, MCH 30.5, MCHC 35.0, RDW Std Deviation 39.0, RDW Coeff of Deepika 12.2, Plt Count 274, MPV 8.7, Immature Gran % (Auto) 0.600, Neut % (Auto) 76.8 H, Lymph % (Auto) 12.9 L, Davison % (Auto) 8.9, Eos % (Auto) 0.6, Baso % (Auto) 0.2, Absolute Neuts (auto) 6.9, Absolute Lymphs (auto) 1.16, Nucleated RBC % 0 11/06/24 04:23: WBC 7.9, RBC 4.04 L, Hgb 12.3 L, Hct 35.2 L, MCV 87.1, MCH 30.4, MCHC 34.9, RDW Std Deviation 39.1, RDW Coeff of Deepika 12.2, Plt Count 303, MPV 8.7, Immature Gran % (Auto) 0.300, Neut % (Auto) 74.5 H, Lymph % (Auto) 13.7 L, Davison % (Auto) 9.8, Eos % (Auto) 1.4, Baso % (Auto) 0.3, Absolute Neuts (auto) 5.9, Absolute Lymphs (auto) 1.08, Nucleated RBC % 0, Sodium 130 L, Potassium 4.1, Chloride 96 L, Carbon Dioxide 21.7, Anion Gap 12, BUN 14, Creatinine 0.97, Estim Creat Clear Calc 56.79, Est GFR (MDRD) Non-Af 79, BUN/Creatinine Ratio 14.4, Glucose 99, Serum Osmolality 279 L, Calcium 8.8, Phosphorus 2.6 L, Iron 50 L, TIBC 270, Iron Saturation 19.0, Unsaturated IBC 220 L, Ferritin 138, Total Bilirubin 0.64, AST 22, ALT 14, Alkaline Phosphatase 101, Troponin T High Sens 18, Total Protein 6.7, Albumin 3.9, Globulin 2.8, Albumin/Globulin Ratio 1.4, Vitamin B12 790, TSH 1.900 11/06/24 04:50: Urine Osmolality 363 11/06/24 05:59: Troponin T Hi Sens 2 Hr 23 H 11/06/24 08:39: Troponin T Hi Sens 4Hr 19 11/06/24 16:30: WBC 6.5, RBC 3.83 L, Hgb 11.9 L, Hct 33.9 L, MCV 88.5, MCH 31.1, MCHC 35.1, RDW Std Deviation 39.8, RDW Coeff of Deepika 12.3, Plt Count 290, MPV 9.1, Immature Gran % (Auto) 0.300, Neut % (Auto) 78.1 H, Lymph % (Auto) 9.1 L, M laurent % (Auto) 11.9 H, Eos % (Auto) 0.3, Baso % (Auto) 0.3, Absolute Neuts (auto) 5.0, Absolute Lymphs (auto) 0.59 L, Nucleated RBC % 0 Micro: Microbiology 11/06/24 06:10 Stool Stool Lactoferrin - Final 11/06/24 06:10 Stool Enteric Bacteriology - Final 11/06/24 06:10 Stool Clostridioides difficile (PCR) - Final 11/05/24 23:44 Stool Stool Occult Blood ([facility]) - Final Occult Blood Positive Imaging Radiology Impression Abdomen/Pelvis CTA 11/05/24 22:46 IMPRESSION: 1. Extensive calcified and noncalcified plaque throughout the abdominal aorta and iliac arteries without evidence of acute dissection or aneurysm. 2. 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 And other findings as described above. 3. Multiple uncinate bilobar low-attenuation hepatic lesions, concerning for metastasis. 4. Stable large central mesenteric mass with obscuration of the SMV as described above. 5. Extensive retroperitoneal adenopathy, unchanged. 6. Other stable findings as described above. Reading Location[facility] [place] Assessment & Plan Assessment/Plan (1) GI (gastrointestinal bleed): QUALIFIERS: GI bleed type/associated pathology: unspecified gastrointestinal hemorrhage type Qualified Code(s): K92.2 - Gastrointestinal hemorrhage, unspecified PLAN: Hg stable. GI on consult. CTA A/P no obvious source of bleeding. Suspect lower source Follow up CBC. PLAN: Plan An 79 yo with h/o 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: He had a Right colon cancer, s/p right hemicolectomy. Pathologic stage pT4 PN2b. Prognostic stage IIIC. CT chest, abdomen and pelvis shows multiple nonspecific mediastinal lymph nodes, hypodensity in the liver. PET/CT on 05/29/2024 showed Hypermetabolic activities in subcarinal node, R hilar node, liver and LE/GEJ area. Biopsy of esophagus and stomach were negative. Biopsy of mediastinal nodes were negative. He declined chemotherapy was suggested. Comes for follow up, CT on 10/24/2024 shows metastatic disease in peritoneum and Liver. Does not chemotherapy. He comes in for lower GI bleeding. He will undergo a flexible sigmoidoscopy. Charges/Coding Visit Charges Inpatient E&M: 61420 Init Hosp L3
--- NOTE | 2024-11-06 18:59 | PCM.PRE.AN2 ---
ASA Classification* ASA Classification ASA Classification: 3 Assessment & Plan Anesthesia* Anesthesia Assessment Anesthesia Assessment: Discussed sedation and/or anesthesia options, risks, benefits, and alternatives with patient/parents/legal guardian/POA. Questions invited. The patient/parents/legal guardian/POA seems to understand and agrees to proceed with anesthesia plan. Reviewed the physical assessment, medical history, allergy history and patient home medications list prior to surgery/procedure/anesthetic and documented any changes. Performed airway and anesthesia risk assessments. Anesthesia Type Anesthesia Type: MAC History Source History Obtained from:: Patient and Chart Anesthesia Focused Assessment* Temperature: 98.4 F Pulse Rate: 71 Blood Pressure: 169/80 Respiratory Rate: 16 Pulse Ox: 100 Oxygen Delivery Method: Room Air Airway Assessment Mouth opens: >3 cm Mallampati Score: I Teeth Condition: Dentures (Patient has full upper and lower dentures. They are in) Neck Range of motion (ROM): Full ROM Focused Labs Anesthesia Preop lab: CBC WBC 6.5 K/mm3 (4.4-11.0) 11/06/24 16:30 11/06/24 RBC 3.83 M/mm3 (4.6-6.2) L 11/06/24 16:30 11/06/24 Hgb 11.9 g/dL (13.0-16.5) L 11/06/24 16:30 11/06/24 Hct 33.9 % (40-54) L 11/06/24 16:30 11/06/24 Plt Count 290 K/mm3 (150-450) 11/06/24 16:30 11/06/24 CHEMISTRY Potassium 4.1 mmol/L (3.3-5.1) 11/06/24 04:23 11/06/24 Sodium 130 mmol/L (133-145) L 11/06/24 04:23 11/06/24 Magnesium 2.3 mg/dL (1.5-2.2) H 11/05/24 22:42 11/05/24 Phosphorus 2.6 mg/dL (2.7-4.5) L 11/06/24 04:23 11/06/24 BUN 14 mg/dL (4-19) 11/06/24 04:23 11/06/24 Creatinine 0.97 mg/dL (0.70-1.20) 11/06/24 04:23 11/06/24 Glucose 99 mg/dL (70-99) 11/06/24 04:23 11/06/24 POC Glucose 113 mg/dL (74-106) H 04/27/24 06:06 04/27/24 TSH 1.900 uIU/mL (0.300-4.200) 11/06/24 04:23 11/06/24 COAG PT 12.2 SECONDS (11.7-14.9) 11/05/24 22:42 11/05/24 Pre-Assessment Diagnosis/Proposed Procedure Planned Operative Procedure(s): Flexible sigmoidoscopy Anesthesia History 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 When Was Last Pacemaker Check QUESTION #4 FULL TEXT: You/Your Family Experience fever (hyperthermia) with Anesthesia Last Oral Intake Last Oral intake: Last Oral Intake NPO since Meds taken in AM with sips of water? Meds patient instructed to take am of surgery Any additional information?: Yes NPO since: 00:00 Meds taken in AM with sips of water?: Yes PONV PONV - goat driver: PONV - goat driver Female HX of Motion Sickness HX of N/V After Surgery Non-Smoker Duration of Surgery greater than 60 minutes Number of Risk Factors PONV Score Height & Weight Height & Weight: Anesthesia: Height & Weight Height 5 ft 7 in 11/06/24 09:29 Weight: 72 kg 11/06/24 09:29 Body Mass Index (BMI) 24.8 11/06/24 05:23 Respiratory Assessment Respiratory Assessment - goat driver: Respiratory Tract Infection Hx - goat driver Hx Respiratory Tract Infection Yes: Patient is recovering 06/22/24 12:11 from a cold/sinus congestion STOP Sleep Apnea STOP Sleep Apnea - goat driver: STOP Sleep Apnea - goat driver Hx Hypertension Yes 11/06/24 13:19 Hx Sleep Apnea No 11/06/24 03:38 CPAP No 06/22/24 13:56 BIPAP No 06/13/24 10:56 Do you snore loudly (louder No 11/06/24 03:38 than talking or can be heard Do you often feel tired/ No 11/06/24 03:38 fatigued/ sleepy during daytime? Has anyone observed you stop No 11/06/24 03:38 breathing during sleep? STOP Results Negative 11/06/24 03:38 QUESTION #5 FULL TEXT : Do you snore loudly (louder than talking or can be heard through closed doors)? 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 Specify any problems Hx of Preganancy in last 3 N/A 11/06/24 03:38 Months Nurse Filling Out Transfusion JSNOW 11/06/24 03:38 & Questions: Date: 11/06/24 11/06/24 03:38 Time: 03:49 11/06/24 03:38 Patient unable to answer at this time (ie. confused, unrespo /Reproduction History /Reproductive History - goat driver: /Reproductive Hx- goat driver Hx Now Gestational Age (in weeks): EDC: Hx Hx Para Hx Section SAB No 06/13/24 10:56 Active Medications Active Medications: Current Medications Generic Name Dose Route Start Last Admin Trade Name Freq PRN Reason Stop Dose Admin Amlodipine Besylate 5 mg 11/06/24 10:00 11/06/24 09:51 Amlodipine 5 Mg Tablet PO 5 mg DAILY EVITA Administration Protocol Hydralazine HCl 10 mg 11/06/24 03:28 Hydralazine 20 Mg/Ml Vial IV Q8H PRN PRN SBP GREATER THAN 160 Protocol Pantoprazole Sodium 40 mg/ 110 mls @ 330 mls/hr 11/06/24 03:28 11/06/24 09:52 Sodium Chloride IV Infused Q12 EVITA Infusion Sodium Chloride 100 mls @ 15 mls/hr 11/06/24 03:52 IV .Q6H40M PRN Saline Flush Sodium Chloride 100 mls @ 15 mls/hr 11/06/24 03:52 IV .Q6H40M PRN Additional IVPB Infusion Metoprolol Tartrate 25 mg 11/06/24 10:00 11/06/24 09:51 Metoprolol Tartrate 25 Mg Tablet PO 25 mg DAILY EVITA Administration Protocol Morphine Sulfate 2 mg 11/06/24 03:28 Morphine 2 Mg/Ml Syringe IV Q4H PRN PRN Pain Score 6-10 Ondansetron HCl 4 mg 11/06/24 03:28 Ondansetron 4 Mg/2 Ml Vial IV Q8H PRN PRN NAUSEA/VOMITING Promethazine HCl 25 mg 11/06/24 03:28 Promethazine 25 Mg/Ml Syringe IM Q6H PRN PRN Breakthrough Nausea/Vomiting Sodium Chloride 10 - 40 ml 11/06/24 03:52 0.9% Saline Lock 10 Ml Syringe IV UD PRN SALINE FLUSH PFSH Medical History Encounter for education Pre-op testing Wears dentures Arthritis Anemia Gastric reflux Former smoker History of edema History of echocardiogram History of stress test Cardiology follow-up encounter Aortic stenosis Preop cardiovascular exam Colon cancer Overweight (BMI 25.0-29.9) Colonic mass Coronary artery disease 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 Chronic hypertension Acute alteration in mental status Neuropathy Vasectomy planned Hyponatremia TIA (transient ischemic attack) CVA (cerebral vascular accident) Hypertension History of stroke Tobacco use Benign essential hypertension Home Medications ?Medication ?Instructions ?Recorded ?Last Taken ?Type amlodipine 5 mg tablet 5 mg PO DAILY HEART 05/16/24 11/05/24 History clonidine HCl 0.1 mg tablet 0.1 mg PO DAILY PRN hbp 06/08/24 10/06/24 History ferrous sulfate 325 mg (65 mg 325 mg PO DAILY 30 days #60 tabs 06/10/24 11/05/24 Rx iron) tablet (Iron (ferrous sulfate)) metoprolol tartrate 50 mg tablet 25 mg PO QDAY Blood pressure/heart 10/17/24 11/05/24 History rat oxycodone 5 mg tablet 5 mg PO Q6H PRN pain 7 days #28 10/24/24 Unknown Rx tabs Allergy/AdvReac Type Severity Reaction Status Date / Time fentanyl AdvReac Low blood Verified 11/06/24 03:59 pressure Family History Father Arthritis Alcohol abuse Mother Alcohol abuse Liver disease Surgical History History of hemicolectomy (04/25/24) H/O vasectomy S/P right hemicolectomy History of tonsillectomy History of appendectomy 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
--- NOTE | 2024-11-06 19:48 | OP.COLON_ITS ---
Patient Name: Shaan Raymond Procedure Date: 11/06/2024 6:51 PM Date of : 1945 Age: 79 Procedure: Colonoscopy Indications: Hematochezia Providers: Ari Silvestre DO Medicines: Monitored Anesthesia Care, See the Anesthesia note for documentation of the administered medications Patient Profile: This is an 79 year old male. Refer to note in patient chart for documentation of history and physical. Last Colonoscopy: 1 year ago. Complications: No immediate complications. Procedure: Pre-Anesthesia Assessment: - Prior to the procedure, a History and Physical was performed, and patient medications and allergies were reviewed. The patient is competent. The risks and benefits of the procedure and the sedation options and risks were discussed with the patient. All questions were answered and informed consent was obtained. Patient identification and proposed procedure were verified by the physician in the pre-procedure area. Mental Status Examination: alert and oriented. Airway Examination: normal oropharyngeal airway and neck mobility. Respiratory Examination: clear to auscultation. CV Examination: normal. Prophylactic Antibiotics: The patient does not require prophylactic antibiotics. Prior Anticoagulants: The patient has taken no anticoagulant or antiplatelet agents. ASA Grade Assessment: III - A patient with severe systemic disease. After reviewing the risks and benefits, the patient was deemed in satisfactory condition to undergo the procedure. The anesthesia plan was to use monitored anesthesia care (MAC). Immediately prior to administration of medications, the patient was re-assessed for adequacy to receive sedatives. The heart rate, respiratory rate, oxygen saturations, blood pressure, adequacy of pulmonary ventilation, and response to care were monitored throughout the procedure. The physical status of the patient was re-assessed after the procedure. After I obtained informed consent, the scope was passed under direct vision. Throughout the procedure, the patient's blood pressure, pulse, and oxygen saturations were monitored continuously. The Colonoscope was introduced through the anus and advanced to the terminal ileum. After I obtained informed consent, the scope was passed under direct vision. Throughout the procedure, the patient's blood pressure, pulse, and oxygen saturations were monitored continuously.The colonoscopy was performed without difficulty. The patient tolerated the procedure well. The quality of the bowel preparation was 90 percent obscured. The terminal ileum, ileocecal valve, appendiceal orifice, and rectum were photographed. Scope In: 7:26:53 PM Scope Withdrawal Time 0 hours 8 minutes 3 seconds Scope Out: 7:40:32 PM Total Procedure Duration Time 0 hours 13 minutes 39 seconds Findings: The perianal and digital rectal examinations were normal. Hematin (altered blood/[id number] material) was found in the entire colon. There was evidence of a prior end-to-side ileo-colonic anastomosis in the ascending colon. This was patent and was characterized by ulceration and an intact staple line. The anastomosis was traversed. To stop active bleeding, one hemostatic clip was successfully placed. 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 There was no bleeding at the end of the procedure. Coagulation for bleeding prevention using argon plasma at 0.5 liters/minute and 20 pond was successful. Estimated blood loss was minimal. The terminal ileum appeared normal. Impression: - No specimens collected. Recommendation: - [facility]. - Clear liquid diet today. - Continue present medications. - Repeat colonoscopy in 2 days because the bowel preparation was poor. Procedure Code(s): --- Professional --- 75512, Colonoscopy, flexible; with control of bleeding, any method CPT copyright 2021 [employer]. All rights reserved. The codes documented in this report are preliminary and upon fruit distributor review may be revised to meet current compliance requirements. Ari Silvestre DO 11/06/2024 7:48:14 PM This report has been signed electronically. Number of Addenda: 0 Note Initiated On: 11/06/2024 6:51 PM
--- NOTE | 2024-11-06 19:49 | PCM.POST.ANE ---
Anesthesia: Postop Eval I Current Vital Signs Temperature: 98 F Pulse Rate: 70 Blood Pressure: 175/76 Respiratory Rate: 16 Pulse Ox: 97 Oxygen Delivery Method: Room Air Assessment Airway patent: Yes Spontaneous unlabored respirations: Yes Mental status: Awake and Calm nausea: No Vomiting: No Anesthesia Complication: No Fluid Hydration Crystalloid volume administer (ml): 10 Total IV fluid infused: 10 Progress Note Anesthesia document: Postop Eval 1 completed: Yes
--- NOTE | 2024-11-06 20:39 | PCM.POSTANE2 ---
Anesthesia Postop Eval I Sum Postop Eval Completion status Anesthesia document: Postop Eval 1 completed: Yes Anesthesia Postop Eval I Summary Anesthesia Postop Eval I Summary: Anesthesia Postop Eval I: Assessment Summary Airway patent Yes 11/06/24 19:59 Spontaneous unlabored Yes 11/06/24 19:59 respirations Mental status Awake,Calm 11/06/24 19:59 nausea No 11/06/24 19:59 Vomiting No 11/06/24 19:59 Anesthesia Postop Eval I: Fluid Summary Crystalloid volume administer 10 11/06/24 19:59 (ml) Colloids volume administered ( ml) Blood Product volume administered (ml) Total IV fluid infused 10 11/06/24 19:59 Anesthesia Postop Eval I: Summary Notes Anesthesia Complication No 11/06/24 19:59 Anesthesia Complication Comment: Post-operative progress note Anesthesia: Postop Eval II Evaluation Mental status: Awake and Calm Pain Level: 0 nausea: No Vomiting: No Complications Anesthesia Complication: No
[2024-11-06] MEDS: 0.9% Saline Lock 10 ML Syringe IV (20:40)
--- NOTE | 2024-11-06 20:55 | NURSING ---
Pt refusing PRN blood pressure medication. Education provided however pt is still refusing stating that he has been through this before, I just needs some sleep. Amy Talley RN
[2024-11-07 03:21] VITALS: BMI 25.1
[2024-11-07 03:38] VITALS: BMI 25.1
[2024-11-07 04:05] VITALS: BP 151/69; PULSE 87; RESP 14; TEMP 36.7; O2SAT 99
[2024-11-07] MEDS: Morphine 2 MG/ML Syringe IV (04:47)
[2024-11-07] MEDS: 0.9% Saline Lock 10 ML Syringe IV (04:48)
[2024-11-07 04:56] LABS: Absolute Lymphocyte Count 0.91 X10^3/uL (0.83-4.51); Absolute Neutrophil Count 4.3 X10^3/uL (2.0-7.7); Basophil# 0.03 X10^3/uL; Basophil% 0.5 % (0-1); Eosinophil# 0.08 X10^3/uL; Eosinophils% 1.3 % (0-5); Hemoglobin 11.9 g/dL (13.0-16.5); Lymphocyte # 0.91 X10^3/ul (0.83-4.51); Lymphocyte % 14.8 % (19-41); Mean Corpuscular Hgb 30.6 pg (27.0-32.0); Mean Corpuscular Volume 87.4 fL (80-94); Mean Platelet Vol. 9.3 fl (6.2-12.0); Monocyte# 0.77 X10^3/uL; Monocyte% 12.5 % (0-10); NRBC Flagged by Analyzer 0 % (0-5); Neutrophil # 4.33 X10^3/uL (2.7-7.7); Neutrophil % 70.4 % (47-70); Platelet Count 285 K/mm3 (150-450); RBC Distribution Width CV 12.3 % (11.6-14.6); RBC Distribution Width SD 39.5 fl (35.1-43.9); Red Blood Count 3.89 M/mm3 (4.6-6.2); White Blood Count 6.2 K/mm3 (4.4-11.0)
--- NOTE | 2024-11-07 05:55 | EKG12_ITS ---
Test Reason : AM EKG Blood Pressure : */* mmHG Vent. Rate : 84 BPM Atrial Rate : 84 BPM P-R Int : 160 ms QRS Dur : 96 ms QT Int : 386 ms P-R-T Axes : 39 16 82 degrees QTcB Int : 456 ms Normal sinus rhythm Incomplete right bundle branch block Nonspecific ST abnormality Abnormal ECG When compared with ECG of 08-Jun-2024 12:26, No significant change was found Confirmed by CHRISTIE DAVIS, DONAVAN ([id number]), legal editor MEHDI LOPEZ ([id number]) on 11/07/2024 1:45:42 PM Referred By: Confirmed By: DONAVAN SORIANO MD
[2024-11-07 06:03] LABS: Anion Gap 14 (5-15); BUN 16 mg/dL (4-19); Calcium,Total 8.6 mg/dL (7.6-11.0); Carbon Dioxide 18.1 mmol/L (21.0-32.0); Chloride 96 mmol/L (98-108); Creatinine, Serum 1.02 mg/dL (0.70-1.20); EST Glomerular Filtration Rate 74 (>60); Glucose 92 mg/dL (70-99); Potassium 3.8 mmol/L (3.3-5.1); Sodium Level 128 mmol/L (133-145)
[2024-11-07 07:11] VITALS: O2SAT 98
--- NOTE | 2024-11-07 07:27 | PN.HOSP_ITS ---
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 No further hematochezia. Objective Data Objective Data Vital Signs: Vital Signs Temp Pulse Resp BP Pulse Ox O2 Del Method 36.7 C 87 14 151/69 H 99 Room Air 11/07/24 04:05 11/07/24 04:05 11/07/24 04:05 11/07/24 04:05 11/07/24 04:05 11/07/24 04:08 Oxygen Delivery Method Room Air Weight: 72.8 kg Body Mass Index (BMI) 25.1 Intake & Output: Intake and Output for Last 24 Hours 11/05/24 11/06/24 11/07/24 23:59 23:59 23:59 Intake Total 2119 / 2119 0 / 0 Balance 2119 / 2119 0 / 0 Lab / Micro Data 11/07/24 03:57 11/07/24 03:57 Labs: Laboratory Results - last 24 hr 11/06/24 08:39: Troponin T Hi Sens 4Hr 19 11/06/24 16:30: WBC 6.5, RBC 3.83 L, Hgb 11.9 L, Hct 33.9 L, MCV 88.5, MCH 31.1, MCHC 35.1, RDW Std Deviation 39.8, RDW Coeff of Deepika 12.3, Plt Count 290, MPV 9.1, Immature Gran % (Auto) 0.300, Neut % (Auto) 78.1 H, Lymph % (Auto) 9.1 L, M laurent % (Auto) 11.9 H, Eos % (Auto) 0.3, Baso % (Auto) 0.3, Absolute Neuts (auto) 5.0, Absolute Lymphs (auto) 0.59 L, Nucleated RBC % 0 11/07/24 03:57: WBC 6.2, RBC 3.89 L, Hgb 11.9 L, Hct 34.0 L, MCV 87.4, MCH 30.6, MCHC 35.0, RDW Std Deviation 39.5, RDW Coeff of Deepika 12.3, Plt Count 285, MPV 9.3, Immature Gran % (Auto) 0.500, Neut % (Auto) 70.4 H, Lymph % (Auto) 14.8 L, [place] % (Auto) 12.5 H, Eos % (Auto) 1.3, Baso % (Auto) 0.5, Absolute Neuts (auto) 4.3, Absolute Lymphs (auto) 0.91, Nucleated RBC % 0, Sodium 128 L, Potassium 3.8, Chloride 96 L, Carbon Dioxide 18.1 L, Anion Gap 14, BUN 16, Creatinine 1.02, Estim Creat Clear Calc 54.00, Est GFR (MDRD) Non-Af 74, BUN/Creatinine Ratio 16.0, Glucose 92, Calcium 8.6 Micro: Microbiology 11/06/24 06:10 Stool Stool Lactoferrin - Final 11/06/24 06:10 Stool Enteric Bacteriology - Final 11/06/24 06:10 Stool Clostridioides difficile (PCR) - Final 11/05/24 23:44 Stool Stool Occult Blood ([facility]) - Final Occult Blood Positive Physical Exam Const alert and no apparent distress HEENT head/scalp atraumatic and moist oral mucous membranes Resp normal respiratory effort, no retractions, no use of accessory muscles and clear to auscultation bilaterally Cardio regular rate, regular rhythm, S1 normal heart sound and S2 normal heart sound GI normal to inspection, nondistended, normoactive bowel sounds, soft to palpation, non-tender and non-distended Extremity normal to inspection, full ROM and no clubbing, cyanosis or edema Neuro Sensorium / Orientation: awake and alert Assessment & Plan Assessment/Plan (1) GI (gastrointestinal bleed): QUALIFIERS: GI bleed type/associated pathology: unspecified gastrointestinal hemorrhage type Qualified Code(s): K92.2 - Gastrointestinal hemorrhage, unspecified PLAN: Hg stable. GI on consult. CTA A/P no obvious source of bleeding. Colonoscopy on 11/06: ulceration clipped. Bleeding abated during the procedure. PLAN: Plan Colon cancer: * multiple uncinate bilobar hepatic lesions, concerning for metastasis. Stable large central mesenteri mass with obscuration of the SMV. Extensive retroperitoneal adenopathy, unchanged. * Last saw oncology 10/31. Stage IIIC. Per Dr. Hernandez's note, declined chemotherapy. Daughter wants him to try Ivermectin. Recommended for second opinion. Abdominal pain * prior to arrival. Patient attributes to gas. Start simethicone. Hypertensive urgency * improved * resume amlodipine, metoprolol * PRN hydralazine VTE prophylaxis: SCDs. Charges/Coding Visit Charges Inpatient E&M: 95216 Subs Hosp L2
[2024-11-07 08:22] VITALS: BP 153/66; PULSE 88; RESP 16; TEMP 36.7
[2024-11-07] MEDS: Pantoprazole Sodium 40 MG in 0.9% Normal Saline (100mL MB+) 100 ML 330 MG IV (10:46)
[2024-11-07 10:48] VITALS: BP 153/66; PULSE 88
[2024-11-07] MEDS: amLODIPine 5 MG Tablet PO (10:48)
[2024-11-07] MEDS: Metoprolol Tartrate 25 MG Tablet PO (10:48)
[2024-11-07] MEDS: SimETHICONE 80 MG Chewable Tablet PO (14:54)
[2024-11-07 15:00] VITALS: BP 149/69; PULSE 79; RESP 16; TEMP 36.7; O2SAT 99
--- NOTE | 2024-11-07 16:55 | PCM.DC.SUM ---
Providers Date of Admission: 11/06/24 Primary Care Physician: MARYAM Guerra Consultations 11/06/24 03:28 Consult: Gastroenterology Routine Consulting Provider: [facility] Reason for Consult: LGIB with BRBPR; recurrent. EMERGENT Consult: No MD Notified: Yes Date Notified: 11/06/24 Time Notified: 02:57 Method of Notification: ED Physician Initiated Reason For Visit: LGIB WITH BRBPR; RECURRENT Diagnosis Discharge Diagnosis (1) GI (gastrointestinal bleed): Status: Acute Code(s): K92.2 - Gastrointestinal hemorrhage, unspecified Qualifiers: GI bleed type/associated pathology: unspecified gastrointestinal hemorrhage type Qualified Code(s): K92.2 - Gastrointestinal hemorrhage, unspecified Plan: Hg stable. GI on consult. CTA A/P no obvious source of bleeding. Colonoscopy on 11/06: ulceration clipped. Bleeding abated during the procedure. JAMES Silvestre, no plans for repeat colonoscopy as pt has had no further bleeding and hemoglobin has remained stable. Plan Colon cancer: multiple uncinate bilobar hepatic lesions, concerning for metastasis. Stable large central mesenteri mass with obscuration of the SMV. Extensive retroperitoneal adenopathy, unchanged. Last saw oncology 10/31. Stage IIIC. Per Dr. Hernandez's note, declined chemotherapy. Daughter wants him to try Ivermectin. Recommended for second opinion. Pt and family to determine on course of action, if wishing to pursue ivermectin, then they will have to find a specialist who will prescribe them that for cancer. If not, then can follow up with Dr. Hernandez. Abdominal pain prior to arrival. Patient attributes to gas. Start simethicone. Hypertensive urgency improved resume amlodipine, metoprolol PRN hydralazine VTE prophylaxis: SCDs. Medications at Discharge Home Medications amlodipine 5 mg tablet 5 mg PO DAILY HEART 05/16/24 clonidine HCl 0.1 mg tablet 0.1 mg PO DAILY PRN hbp 06/08/24 ferrous sulfate 325 mg (65 mg iron) tablet (Iron (ferrous sulfate)) 325 mg PO DAILY 30 days #60 tabs 06/10/24 metoprolol tartrate 50 mg tablet 25 mg PO QDAY Blood pressure/heart rat 10/17/24 oxycodone 5 mg tablet 5 mg PO Q6H PRN pain 7 days #28 tabs 10/24/24 simethicone 80 mg chewable tablet 80 mg PO [facility] #0 tabs 11/07/24 Hospital Course Summary of Care Provided Minutes Spent on Discharge: 32 Weight / BMI Weight Weight: 72.8 kg Body Mass Index (BMI) 25.1 ABG / Lab / Microbiology Data 11/07/24 03:57 11/07/24 03:57 Laboratory: Laboratory Results - last 24 hr 11/07/24 03:57: WBC 6.2, RBC 3.89 L, Hgb 11.9 L, Hct 34.0 L, MCV 87.4, MCH 30.6, MCHC 35.0, RDW Std Deviation 39.5, RDW Coeff of Deepika 12.3, Plt Count 285, MPV 9.3, Immature Gran % (Auto) 0.500, Neut % (Auto) 70.4 H, Lymph % (Auto) 14.8 L, [place] % (Auto) 12.5 H, Eos % (Auto) 1.3, Baso % (Auto) 0.5, Absolute Neuts (auto) 4.3, Absolute Lymphs (auto) 0.91, Nucleated RBC % 0, Sodium 128 L, Potassium 3.8, Chloride 96 L, Carbon Dioxide 18.1 L, Anion Gap 14, BUN 16, Creatinine 1.02, Estim Creat Clear Calc 54.00, Est GFR (MDRD) Non-Af 74, BUN/Creatinine Ratio 16.0, Glucose 92, Calcium 8.6 Microbiology: Microbiology 11/06/24 06:10 Stool Stool Lactoferrin - Final 11/06/24 06:10 Stool Enteric Bacteriology - Final 11/06/24 06:10 Stool Clostridioides difficile (PCR) - Final 11/05/24 23:44 Stool Stool Occult Blood ([facility]) - Final Occult Blood Positive D/C Instructions Discharge Diet: No restrictions DC O2, CPAP, BIPAP Needs Home O2 Discharge instructions: No Meaningful Use Info Meaningful Use Meaningful Use Diagnoses (Choose all that apply): None applicable Ischemic Stroke Statin Dosing Therapy Reference: STATIN DOSE THERAPY REFERENCE: * Patients > 75 years receive moderate or high dose statin therapy. * Patients 75 years or YOUNGER should receive HIGH intensity statin dose unless contraindicated. You will be required to document reason for non-treatment if statin daily dose does not meet guidelines. HIGH DOSE STATIN THERAPY DAILY Atorvastatin > than or = to 40 mg Rosuvastatin > than or = to 20 mg Amlodipine + Atorvastatin > than or = to 2.5/40 mg Ezetimibe + Simvastatin 10/80 mg Simvastatin 80mg Discharge Plan Admission Admit Date/Time: 11/06/24 02:56 Primary Reason for Your Visit: Gastrointestinal bleed. Attending Provider: Stevie Harrington Primary Care Provider: Tami Omalley Consulting Providers: Darrel Carpenter Instructions Additional Instructions / Restrictions: You had an ulceration at the anastamosis site of you prior partial colectomy that was the cause of your bleeding. Dr. Silvestre was able to place a clip to stop the bleeding. No further colonoscopy is needed at this time. You saw Dr. Hernandez on October 31. If you are interested in pursuing chemotherapy for you cancer, please follow up with his office. If you are pursuing alternative therapies, you will need to find another provider to assist you. Discharge Orders/Prescriptions Prescriptions: New simethicone 80 mg Tablet,Chewable 80 mg PO PCHS Qty: 0 0RF Continued metoprolol tartrate 50 mg tablet 25 mg PO QDAY amlodipine 5 mg tablet 5 mg PO DAILY ferrous sulfate [Iron (ferrous sulfate)] 325 mg (65 mg iron) tablet 325 mg PO DAILY 30 Days Qty: 60 5RF clonidine HCl 0.1 mg tablet 0.1 mg PO DAILY PRN (Reason: hbp) Patient Comments: pt states he only takes if bp is over 200+ oxycodone 5 mg tablet 5 mg PO Q6H PRN (Reason: pain) 7 Days Qty: 28 0RF Referrals / Follow Up: Tami Omalley, [employer] [Primary Care Provider] - Within 2 Weeks Disposition Disposition (needs filled in before D/C Order can be placed): Home, Self Care Charges/Coding Visit Charges Inpatient E&M: 48853 Disch Hosp >30min
== END 2024-11-07 18:09 | disposition home or self-care (01) | DRG 378 ==
LOC: ED 11-06 02:01 → PCU 11-06 03:07
PROVIDERS: Internal Medicine Gastroenterology; Admitting Provider Internal Medicine; Emergency Provider Emergency Medicine; PCP Nurse Practitioner Family
PROC: 0DJD8ZZ Inspection of Lower Intestinal Tract, Via Natural or Artificial Opening Endoscopic (ICD-10-PCS; CPT 45330; principal; 2024-11-06 17:25)
DX: K28.4 Chronic or unspecified gastrojejunal ulcer with hemorrhage (principal); C77.2 Secondary and unspecified malignant neoplasm of intra-abdominal lymph nodes; C78.7 Secondary malignant neoplasm of liver and intrahepatic bile duct; C78.6 Secondary malignant neoplasm of retroperitoneum and peritoneum; C18.2 Malignant neoplasm of ascending colon; E87.1 Hypo-osmolality and hyponatremia; I16.0 Hypertensive urgency; I10 Essential (primary) hypertension; I25.10 Atherosclerotic heart disease of native coronary artery without angina pectoris; R14.1 Gas pain; R19.5 Other fecal abnormalities; E66.3 Overweight; Z68.25 Body mass index [BMI] 25.0-25.9, adult; Z95.1 Presence of aortocoronary bypass graft; Z98.0 Intestinal bypass and anastomosis status; Z90.49 Acquired absence of other specified parts of digestive tract; Z91.198 Patient's noncompliance with other medical treatment and regimen for other reason; Z79.899 Other long term (current) drug therapy; Z86.73 Personal history of transient ischemic attack (TIA), and cerebral infarction without residual deficits; Z87.891 Personal history of nicotine dependence
CPT/HCPCS: 36415; 74174; 80048; 80053; 82274; 82607; 82728; 83540; 83550; 83605; 83630; 83735; 83930; 83935; 84100; 84443; 84484; 85025; 85610; 85730; 86850; 86900; 86901; 87177; 87209; 87493; 87506; 93005; 94668; 97802; 99283; 99406; C1889; Q9967; A4216; J2405

== ENCOUNTER 2024-11-18 09:55 | Inpatient (IN) | payer MEDICARE, SELFPAY ==
[2024-11-18 09:56] VITALS: BP 156/83; PULSE 76; RESP 16; TEMP 36.6; O2SAT 100; BMI 23.9
--- NOTE | 2024-11-18 10:16 | ED.VIS.GI ---
HPI <ONDINA Govea - Last Filed: 11/18/24 14:05> HPI - GI History of Present Illness Chief Complaint: GI Bleed Narrative Narrative: Patient presenting today due to an episode of bright red blood per rectum he noticed around 4 AM today when having a bowel movement. He has a history of metastatic colon cancer following with Dr. Hernandez. He declined chemotherapy. He has a history of a right hemicolectomy. He was recently admitted about a week and a half ago due to rectal bleeding and had a colonoscopy performed by Dr. Silvestre. He had an ulceration at the anastamosis site of his partial colectomy that was clipped and he was ultimately discharged home. He is taking an iron supplement and reports that since starting that he has had dark-colored stools. He reports frequent abdominal cramping when having bowel movements. He denies any fevers, chills, or vomiting. 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 Chronic hypertension Acute alteration in mental status Neuropathy Vasectomy planned Hyponatremia TIA (transient ischemic attack) CVA (cerebral vascular accident) Hypertension History of stroke Tobacco use Benign essential hypertension Home Medications ?Medication ?Instructions ?Recorded ?Last Taken ?Type amlodipine 5 mg tablet 5 mg PO DAILY HEART 05/16/24 11/05/24 History clonidine HCl 0.1 mg tablet 0.1 mg PO DAILY PRN hbp 06/08/24 10/06/24 History ferrous sulfate 325 mg (65 mg 325 mg PO DAILY 30 days #60 tabs 06/10/24 11/05/24 Rx iron) tablet (Iron (ferrous sulfate)) metoprolol tartrate 50 mg tablet 25 mg PO QDAY Blood pressure/heart 10/17/24 11/05/24 History rat oxycodone 5 mg tablet 5 mg PO Q6H PRN pain 7 days #28 10/24/24 Unknown Rx tabs Allergy/AdvReac Type Severity Reaction Status Date / Time fentanyl AdvReac Low blood Verified 11/06/24 03:59 pressure Family History Father Arthritis Alcohol abuse Mother Alcohol abuse Liver disease Surgical History History of hemicolectomy (04/25/24) H/O vasectomy S/P right hemicolectomy History of tonsillectomy History of appendectomy 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) Social History Smoking Status: Former smoker alcohol intake: never substance use type: does not use ROS <ONDINA Govea - Last Filed: 11/18/24 14:05> ROS ED Constitutional Constitutional ED: Denies chills or fever(s) Cardiovascular Cardiovascular: Denies chest pain Respiratory/Chest Respiratory/Chest: Denies dyspnea Gastrointestinal Gastrointestinal: Reports hematochezia; Denies abdominal pain, nausea or vomiting Genitourinary Genitourinary ED: Denies dysuria, hematuria or urinary urgency Musculoskeletal Musculoskeletal: Denies arthralgias or myalgias Neurologic Neurologic: Denies weakness EXAM <ONDINA Govea - Last Filed: 11/18/24 14:05> Physical Exam Const Vital Signs: 11/18/24 09:56 11/18/24 12:00 Temperature 97.8 F Temperature Source Oral Pulse Rate 76 63 Respiratory Rate 16 17 Blood Pressure 156/83 H 185/73 H Blood Pressure Mean 107 110 Pulse Ox 100 98 Oxygen Delivery Method Room Air Positive well nourished, well developed and no apparent distress General Appearance ED: well developed HEENT Reports normocephalic and head/scalp atraumatic Mouth ED: Yes moist mucous membranes normal Eyes PERRL and EOMs intact bilaterally Neck full ROM and supple Chest Wall inspection of chest normal Resp normal respiratory effort and clear to auscultation bilaterally Cardio regular rate and regular rhythm GI soft to palpation, non-tender, non-distended and no masses Back/Spine normal ROM and normal to inspection Extremity normal to inspection and full ROM Neuro oriented x3, CN's II-XII intact bilaterally, moves all extremities, no focal motor deficits and no sensory deficits noted Sensorium / Orientation: awake and alert Psych mental status grossly normal and thought process normal Skin no rashes or lesions noted and no wounds <Dr. Lazaro Sharp MD - Last Filed: 11/18/24 14:53> Physical Exam Const Vital Signs: 11/18/24 09:56 11/18/24 12:00 Temperature 97.8 F Temperature Source Oral Pulse Rate 76 63 Respiratory Rate 16 17 Blood Pressure 156/83 H 185/73 H Blood Pressure Mean 107 110 Pulse Ox 100 98 Oxygen Delivery Method Room Air MDM <ONDINA Govea - Last Filed: 11/18/24 14:05> [facility] Narrative Medical decision making narrative: Patient presenting today due to concerns for bloody bowel movements he had earlier this morning. He reports that he has been having dark-colored stools since starting his iron supplement. He has a history of metastatic colon cancer. Patient does not appear to understand the severity of his diagnosis, he is under the impression that his cancer is under control and that there are no active cancerous lesions. He was recently here about a week and a half ago for rectal bleeding, he had a colonoscopy performed by Dr. Silvestre. It was found that he had an ulceration at the anastomosis site of his partial colectomy, this was clipped. He reports chronic lower abdominal pain especially when having bowel movements. He reports that his bowels have been loose and watery. Rectal exam was performed by the attending physician, he had a significant amount of maroon-colored stool. His hemoglobin has dropped about a gram and a half in the past 11 days. No leukocytosis. Sodium slightly low at 130. CT scan of the abdomen pelvis with IV contrast shows no acute findings, does suggest metastatic disease. I do feel he would benefit from readmission to the hospital. He will be admitted in stable condition. I have personally performed a face to face assessment of the patient and have reviewed the ODILON Note. I performed a substantive portion of the visit including all aspects of the following. My braun findings include: History is limited due to the fact the patient is a poor informant does not understand the extent of his disease process. Dr. Papi Hernandez's office note was reviewed. Patient at this point is declined chemotherapy. He has stage IIIc cancer. Patient reports blood in his stool. He believes he may have had blood 3 days ago. He states his eyesight is poor and reason he is uncertain. He does complain of bilateral lower quadrant pain. Achy crampy like pain. He does not feel bloated. He had no vomiting. He is not on an anticoagulant. He is on iron. He is taking the iron tablets. He states his stool is dark. Exam is vital signs are marked for an elevated blood pressure. He appears slightly pale. Conjunctive is slightly pink. Trachea is midline. Lungs are clear to auscultation. Heart is regular. There is no murmur, gallop or rub. Rate is normal. Abdomen is slightly tympanitic. Tenderness both right and left lower quadrant. No evidence of inguinal hernia. Rectal exam reveals evidence of prior hemorrhoids. There is brown blood near the anus. Anoscopy was performed. Patient had significant amount of brown-maroon watery diarrhea. Unable to determine if the anal/distal sigmoid mucosa is abnormal because of the amount of stool. Medical Decision Making the patient having pain bloody diarrhea need to evaluate for ischemic colitis, versus infectious versus inflammatory. Will obtain appropriate blood work and CT. Patient and his were told he will need to be admitted. Other additions or changes: [None] Lab Data Labs: Laboratory Results - last 24 hr 11/18/24 11/18/24 10:20 11:56 WBC 7.9 RBC 3.34 L Hgb 10.3 L Hct 29.1 L MCV 87.1 MCH 30.8 MCHC 35.4 RDW Std Deviation 39.8 RDW Coeff of Deepika 12.4 Plt Count 333 MPV 8.6 Immature Gran % (Auto) 0.400 Neut % (Auto) 71.9 H Lymph % (Auto) 14.4 L Bath % (Auto) 11.2 H Eos % (Auto) 1.8 Baso % (Auto) 0.3 Absolute Neuts (auto) 5.7 Absolute Lymphs (auto) 1.14 Nucleated RBC % 0 Sodium 130 L Potassium 4.1 Chloride 95 L Carbon Dioxide 24.0 Anion Gap 11 BUN 14 Creatinine 1.02 Estim Creat Clear Calc 54.00 Est GFR (MDRD) Non-Af 74 BUN/Creatinine Ratio 13.7 Glucose 104 H Calcium 8.9 Blood Type O POSITIVE Antibody Screen NEGATIVE Radiography Diagnostic Testing: Clinical Impression(s) from Imaging Studies Abdomen/Pelvis CT 11/18/24 10:50 IMPRESSION: 1. No acute abdominopelvic finding. 2. Prior colonic resection and anastomosis with findings of abdominopelvic metastatic disease, including hepatic, diffuse maggie, retroperitoneal/omental and mesenteric metastatic disease. 3. 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 Reading Location: [id number] <Dr. Lazaro Sharp MD - Last Filed: 11/18/24 14:53> [facility] Narrative Medical decision making narrative: ulceration at the anastamosis site of you prior partial colectomy that was the cause of your bleeding. Dr. Silvestre was able to place a clip to stop the bleeding. I have personally performed a face to face assessment of the patient and have reviewed the ODILON Note. I performed a substantive portion of the visit including all aspects of the following. My braun findings include: History is limited due to the fact the patient is a poor informant does not understand the extent of his disease process. Dr. Papi Hernandez's office note was reviewed. Patient at this point is declined chemotherapy. He has stage IIIc cancer. Patient reports blood in his stool. He believes he may have had blood 3 days ago. He states his eyesight is poor and reason he is uncertain. He does complain of bilateral lower quadrant pain. Achy crampy like pain. He does not feel bloated. He had no vomiting. He is not on an anticoagulant. He is on iron. He is taking the iron tablets. He states his stool is dark. Exam is vital signs are marked for an elevated blood pressure. He appears slightly pale. Conjunctive is slightly pink. Trachea is midline. Lungs are clear to auscultation. Heart is regular. There is no murmur, gallop or rub. Rate is normal. Abdomen is slightly tympanitic. Tenderness both right and left lower quadrant. No evidence of inguinal hernia. Rectal exam reveals evidence of prior hemorrhoids. There is brown blood near the anus. Anoscopy was performed. Patient had significant amount of brown-maroon watery diarrhea. Unable to determine if the anal/distal sigmoid mucosa is abnormal because of the amount of stool. Medical Decision Making the patient having pain bloody diarrhea need to evaluate for ischemic colitis, versus infectious versus inflammatory. Will obtain appropriate blood work and CT. Patient and his were told he will need to be admitted. Other additions or changes: [None] Lab Data Attestation: I reviewed the patient's lab results. Lab results narrative: White count is normal. There is a slight shift. H&H is 10.3 and 29.1 with normal indices. This represents a 1.5 g drop from November 07. In light of this patient was typed and screened. Labs: Laboratory Results - last 24 hr 11/18/24 11/18/24 10:20 11:56 WBC 7.9 RBC 3.34 L Hgb 10.3 L Hct 29.1 L MCV 87.1 MCH 30.8 MCHC 35.4 RDW Std Deviation 39.8 RDW Coeff of Deepika 12.4 Plt Count 333 MPV 8.6 Immature Gran % (Auto) 0.400 Neut % (Auto) 71.9 H Lymph % (Auto) 14.4 L Bath % (Auto) 11.2 H Eos % (Auto) 1.8 Baso % (Auto) 0.3 Absolute Neuts (auto) 5.7 Absolute Lymphs (auto) 1.14 Nucleated RBC % 0 Sodium 130 L Potassium 4.1 Chloride 95 L Carbon Dioxide 24.0 Anion Gap 11 BUN 14 Creatinine 1.02 Estim Creat Clear Calc 54.00 Est GFR (MDRD) Non-Af 74 BUN/Creatinine Ratio 13.7 Glucose 104 H Calcium 8.9 Blood Type O POSITIVE Antibody Screen NEGATIVE Radiography Diagnostic Testing: Clinical Impression(s) from Imaging Studies Abdomen/Pelvis CT 11/18/24 10:50 IMPRESSION: 1. No acute abdominopelvic finding. 2. Prior colonic resection and anastomosis with findings of abdominopelvic metastatic disease, including hepatic, diffuse maggie, retroperitoneal/omental and mesenteric metastatic disease. 3. 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 Reading Location: [facility] CT of the abdomen pelvis was reviewed by me at 1111. Patient is known to have mets to his liver. There is evidence of diverticulosis. There appears to be some inflammation of the small bowel. There is no evidence of abscess. There is no evidence of pneumoperitoneum. Bladder is distended. Awaiting formal read by radiologist. Management Discussion w/another healthcare provider: Hospitalist (Hospitalist, Dr. Kelvin Schrader was made aware of patient and admit to [facility]) Procedures <Dr. Lazaro Sharp MD - Last Filed: 11/18/24 14:53> Other Procedures Procedure(s): Anoscopy was performed. Anoscopy was limited due to the amount of profuse bloody diarrhea. There was evidence of external prior hemorrhoids. There was no evidence of bleeding hemorrhoids. Prostate slightly enlarged. There is no hardness or irregularity to the prostate. Discharge Plan Dx/Rx/DC Orders Clinical Impression: Colon cancer, Rectal bleeding, Coronary artery disease, Bloody diarrhea, Anemia due to blood loss, Elevated blood pressure reading with diagnosis of hypertension Disposition Disposition: Acute Care Hospital [facility]
[2024-11-18 10:25] LABS: Absolute Lymphocyte Count 1.14 X10^3/uL (0.83-4.51); Absolute Neutrophil Count 5.7 X10^3/uL (2.0-7.7); Basophil# 0.02 X10^3/uL; Basophil% 0.3 % (0-1); Eosinophil# 0.14 X10^3/uL; Eosinophils% 1.8 % (0-5); Hematocrit 29.1 % (40-54); Hemoglobin 10.3 g/dL (13.0-16.5); Lymphocyte # 1.14 X10^3/ul (0.83-4.51); Lymphocyte % 14.4 % (19-41); Mean Corp Hgb Conc 35.4 g/dL (32-36); Mean Corpuscular Hgb 30.8 pg (27.0-32.0); Mean Corpuscular Volume 87.1 fL (80-94); Mean Platelet Vol. 8.6 fl (6.2-12.0); Monocyte# 0.89 X10^3/uL; Monocyte% 11.2 % (0-10); NRBC Flagged by Analyzer 0 % (0-5); Neutrophil # 5.71 X10^3/uL (2.7-7.7); Neutrophil % 71.9 % (47-70); Platelet Count 333 K/mm3 (150-450); RBC Distribution Width CV 12.4 % (11.6-14.6); RBC Distribution Width SD 39.8 fl (35.1-43.9); Red Blood Count 3.34 M/mm3 (4.6-6.2); White Blood Count 7.9 K/mm3 (4.4-11.0)
--- NOTE | 2024-11-18 10:50 | CT_ITS ---
PROCEDURE: ABDOMEN/PELVIS W IV CONT ONLY 11/18/2024 REASON FOR EXAM: BILATERAL LOWER QUADRANT PAIN, BLOODY DIARRHEA TECHNIQUE: Abdomen and pelvis CT with intravenous contrast. Coronal and Sagittal reconstruction series were provided. PATIENT PREPARATION: Per protocol ORAL CONTRAST TYPE: None. CONTRAST: Isovue 370 VOLUME: 100 mL One or more dose reduction techniques were used (e.g., Automated exposure control, adjustment of the mA and/or kV according to patient size, use of iterative reconstruction technique. RADIATION DOSE SUMMARY: CTDlvol: 11 mGy DLP: 600 mGycm COMPARISON: CT abdomen pelvis 11/05/2024 FINDINGS: Lung bases: Bibasilar atelectasis. The heart is normal in size. Liver: The liver is normal in size with numerous hypodensities throughout the left and right hepatic lobes. The major portal veins are patent. No biliary ductal dilation. Gallbladder: No radiopaque stones within the gallbladder. Spleen: Normal size. Pancreas: Stable soft tissue mass abutting the pancreatic head, partially encasing the SMA, measuring approximately 4.3 x 4.2 cm, previously 4.0 x 4.0 cm. Adrenals: Thickening of the left adrenal gland without discrete mass. Kidneys: Nonobstructing right lower pole renal calculus. No hydronephrosis. Bladder: Distended and unremarkable. Reproductive Organs: Unremarkable. Bowel: Multiple prior bowel resections and anastomosis. Unchanged soft tissue lesion just lateral to the colonic anastomosis (series 2, image 47). The bowel loops are normal in caliber. No ascites or pneumoperitoneum. No inflammatory mass in the expected region of the appendix. Lymph nodes: Extensive retroperitoneal and mesenteric lymphadenopathy, several which demonstrate necrotic changes, unchanged since prior examination. Vasculature: Severe mixed plaque of the aortoiliac vessels. Compression of the SMV secondary to the large mesenteric mass, unchanged. Bones: Thoracolumbar spondylosis. Surgical scarring along the ventral midline abdominal wall. Stable small soft tissue mass within the right lower anterior abdominal wall. CT/Abdomen/Pelvis W IV Cont ONLY IMPRESSION: 1. No acute abdominopelvic finding. 2. Prior colonic resection and anastomosis with findings of abdominopelvic meta static disease, including hepatic, diffuse maggie, retroperitoneal/omental and mesenteric metastatic disease. 3. 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 Reading Location: [facility]
[2024-11-18 11:21] LABS: Anion Gap 11 (5-15); BUN 14 mg/dL (4-19); BUN/Creat Ratio 13.7 RATIO (10-20); Calcium,Total 8.9 mg/dL (7.6-11.0); Chloride 95 mmol/L (98-108); Creatinine, Serum 1.02 mg/dL (0.70-1.20); EST Glomerular Filtration Rate 74 (>60); Glucose 104 mg/dL (70-99); Potassium 4.1 mmol/L (3.3-5.1); Sodium Level 130 mmol/L (133-145)
[2024-11-18 12:00] VITALS: BP 185/73; PULSE 63; RESP 17; O2SAT 98
[2024-11-18] MEDS: 0.9% Normal Saline (1000mL) 1,000 ML 999 ML IV (13:12)
[2024-11-18 13:14] VITALS: BP 186/86; PULSE 64; RESP 15; O2SAT 99
--- NOTE | 2024-11-18 13:15 | ED.RN ---
patient states he took his blood pressure medication this morning and does not want anything else for his BP of 186/86
--- NOTE | 2024-11-18 13:35 | PCM.HP.STD ---
[facility] - General General Date of Admission: 11/18/24 HPI Narrative JARED PEREZ, is a 79 M who presents to the hospital with lower GI bleed. He was recently hospitalized with a colonoscopy that showed an ulceration at the anastomosis after his right hemicolectomy that was treated. He states that he noticed bright red blood per rectum this morning around 4 AM with a bowel movement as well as a little bit last night. Denies any lightheadedness or dizziness no other symptoms of anemia. On his last discharge his hemoglobin was 11.9, today it is 10.3. 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 He previously has not wanted chemotherapy but wanted to investigate the possible use of ivermectin for treatment. He does seem more open today with the possibility of proceeding with chemotherapy. 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 Chronic hypertension Acute alteration in mental status Neuropathy Vasectomy planned Hyponatremia TIA (transient ischemic attack) CVA (cerebral vascular accident) Hypertension History of stroke Tobacco use Benign essential hypertension Home Medications ?Medication ?Instructions ?Recorded ?Last Taken ?Type amlodipine 5 mg tablet 5 mg PO DAILY HEART 05/16/24 11/05/24 History clonidine HCl 0.1 mg tablet 0.1 mg PO DAILY PRN hbp 06/08/24 10/06/24 History ferrous sulfate 325 mg (65 mg 325 mg PO DAILY 30 days #60 tabs 06/10/24 11/05/24 Rx iron) tablet (Iron (ferrous sulfate)) metoprolol tartrate 50 mg tablet 25 mg PO QDAY Blood pressure/heart 10/17/24 11/05/24 History rat oxycodone 5 mg tablet 5 mg PO Q6H PRN pain 7 days #28 10/24/24 Unknown Rx tabs Allergy/AdvReac Type Severity Reaction Status Date / Time fentanyl AdvReac Low blood Verified 11/06/24 03:59 pressure Family History Father Arthritis Alcohol abuse Mother Alcohol abuse Liver disease Surgical History History of hemicolectomy (04/25/24) H/O vasectomy S/P right hemicolectomy History of tonsillectomy History of appendectomy 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) Social History Smoking Status: Former smoker alcohol intake: never substance use type: does not use ROS Constitutional Constitutional: Denies chills, fatigue, fever(s) or malaise Eyes Eyes: Denies blurry vision ENT HEENT: Denies headache(s) or nasal discharge Cardiovascular Cardiovascular: Denies chest pain, dyspnea on exertion or syncope Respiratory/Chest Respiratory/Chest: Denies cough, shortness of breath at rest or shortness of breath with exertion Gastrointestinal Gastrointestinal: Reports abdominal pain, hematochezia and melena; Denies constipation, diarrhea, nausea or vomiting Genitourinary Genitourinary: Denies dysuria Neurologic Neurologic: Denies focal weakness, numbness or tremor(s) Psychiatric Psychiatric: Denies anxiety or depression Vital Signs Vital Signs Vital Signs: 11/18/24 09:56 11/18/24 12:00 11/18/24 13:14 Temperature 97.8 F Temperature Source Oral Pulse Rate 76 63 64 Respiratory Rate 16 17 15 Blood Pressure 156/83 H 185/73 H 186/86 H Blood Pressure Mean 107 110 119 Pulse Ox 100 98 99 Oxygen Delivery Method Room Air Room Air Weight Weight: 153 lb Body Mass Index (BMI) 23.9 Physical Exam Narrative General: Alert, Oriented x3, Cooperative, No apparent distress HEENT: Atraumatic, PERRLA, EOMI, Normocephalic Oral: Moist Mucosa Neck: Supple, No JVD Lungs: Clear to auscultation, Normal air movement, No rhonchi, No wheeze, No rales Cardiovascular: Regular rate, Regular Rhythm, Normal S1, Normal S2, GUMARO Abdomen: Soft, Non Tender, Non-Distended, No Hepato-splenomegaly Extremities: No edema, Capillary Refill Less than 3 Seconds Skin: No rashes, No breakdown Musculoskeletal: No Tenderness to Palpation of Joints or Extremities Neurological: No focal neurological deficits, moves all extremities Psych/Mental Status: Normal Affect, Appropriate Results Lab / Micro Data 11/18/24 10:20 11/18/24 10:20 Labs: Laboratory Results - last 24 hr 11/18/24 10:20: WBC 7.9, RBC 3.34 L, Hgb 10.3 L, Hct 29.1 L, MCV 87.1, MCH 30.8, MCHC 35.4, RDW Std Deviation 39.8, RDW Coeff of Deepika 12.4, Plt Count 333, MPV 8.6, Immature Gran % (Auto) 0.400, Neut % (Auto) 71.9 H, Lymph % (Auto) 14.4 L, [place] % (Auto) 11.2 H, Eos % (Auto) 1.8, Baso % (Auto) 0.3, Absolute Neuts (auto) 5.7, Absolute Lymphs (auto) 1.14, Nucleated RBC % 0, Sodium 130 L, Potassium 4.1, Chloride 95 L, Carbon Dioxide 24.0, Anion Gap 11, BUN 14, Creatinine 1.02, Estim Creat Clear Calc 54.00, Est GFR (MDRD) Non-Af 74, BUN/Creatinine Ratio 13.7, Glucose 104 H, Calcium 8.9 11/18/24 11:56: Blood Type O POSITIVE, Antibody Screen NEGATIVE Imaging Radiology Impression Abdomen/Pelvis CT 11/18/24 10:50 IMPRESSION: 1. No acute abdominopelvic finding. 2. Prior colonic resection and anastomosis with findings of abdominopelvic metastatic disease, including hepatic, diffuse maggie, retroperitoneal/omental and mesenteric metastatic disease. 3. 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 Reading Location: [id number] Assessment & Plan Assessment/Plan (1) GI bleed: PLAN: Plan 1. Recurrent lower GI bleed with acute blood loss anemia in the setting of metastatic colon cancer status post hemicolectomy with anastomosis with a recent anastomotic bleed/iron deficiency anemia ? Clear liquid diet ? Will do a colon prep ? Will consult GI for repeat scope ? Will repeat H&H in the morning ? He has chosen to not pursue chemotherapy though per our discussion during his admission ? Continue with iron replacement ? Given the findings of metastatic colon cancer to we had a 20-minute discussion advance care planning including prognosis of stage IV colon cancer as well as the options including hospice and palliative care versus pursuing chemotherapy. 2. Essential HTN/CAD status post CABG ? Continue with his home blood pressure medications ? Will monitor and make adjustments as necessary ? She is not on a statin even though he probably should be on 1 he does have a history of noncompliance DVT: SCDs 55 minutes was spent on direct patient care, including documentation as well as chart review and collaboration with colleagues Charges/Coding Multi Select Codes Visit Charges Visit Charges: 32872 Init Hosp L2 Hospitalists' Procedures Procedures: 01789 Advncd Care Plan 30 Min
[2024-11-18 15:02] VITALS: PULSE 67; RESP 17; O2SAT 100
[2024-11-18 15:46] VITALS: BMI 23.4
[2024-11-18 16:10] VITALS: BP 182/88; PULSE 76; RESP 16; TEMP 36.5; O2SAT 100
[2024-11-18] MEDS: Bisacodyl 5 MG Tablet 20 MG PO (16:38)
[2024-11-18] MEDS: Polyethylene Glycol 3350 BOWEL PREP PO (16:51)
[2024-11-18 20:56] VITALS: BP 176/92; PULSE 73; RESP 16; TEMP 36.8; O2SAT 98
[2024-11-19] VITALS (10 sets, daily range): BP systolic 113–156; BP diastolic 66–95; PULSE 66–84; RESP 16–18; TEMP 36.1–36.9; O2SAT 97–100; BMI 23.4
[2024-11-19 05:17] LABS: Absolute Neutrophil Count 6.2 X10^3/uL (2.0-7.7); Basophil# 0.02 X10^3/uL; Basophil% 0.2 % (0-1); Eosinophil# 0.16 X10^3/uL; Eosinophils% 1.9 % (0-5); Hemoglobin 10.9 g/dL (13.0-16.5); Lymphocyte % 14.2 % (19-41); Mean Corp Hgb Conc 34.1 g/dL (32-36); Mean Corpuscular Hgb 30.4 pg (27.0-32.0); Mean Corpuscular Volume 89.1 fL (80-94); Mean Platelet Vol. 9.2 fl (6.2-12.0); Monocyte# 0.84 X10^3/uL; NRBC Flagged by Analyzer 0 % (0-5); Neutrophil # 6.19 X10^3/uL (2.7-7.7); Neutrophil % 73.3 % (47-70); Platelet Count 353 K/mm3 (150-450); RBC Distribution Width CV 12.5 % (11.6-14.6); Red Blood Count 3.59 M/mm3 (4.6-6.2); White Blood Count 8.4 K/mm3 (4.4-11.0)
[2024-11-19 05:46] LABS: Anion Gap 12 (5-15); BUN 10 mg/dL (4-19); BUN/Creat Ratio 10.4 RATIO (10-20); Calcium,Total 8.8 mg/dL (7.6-11.0); Chloride 99 mmol/L (98-108); Creatinine, Serum 0.95 mg/dL (0.70-1.20); EST Glomerular Filtration Rate 81 (>60); Estimated Creatinine Clearance 57.98 ml/min (50-250); Glucose 99 mg/dL (70-99); Sodium Level 132 mmol/L (133-145)
[2024-11-19] MEDS: amLODIPine 5 MG Tablet PO (09:06)
[2024-11-19] MEDS: Metoprolol Tartrate 25 MG Tablet PO (09:06)
--- NOTE | 2024-11-19 10:50 | CASEMGMT ---
Social Work- SW received notice that [facility]ie completed [facility]. [employer] is familiar with pt and has worked with them numerous times previously and reports that they will qualify for assistance. МАРИНА Gipson
--- NOTE | 2024-11-19 12:02 | PRE.ANES_ITS ---
ASA Classification* ASA Classification ASA Classification: 3 Assessment & Plan Anesthesia* Anesthesia Assessment Anesthesia Assessment: Discussed sedation and/or anesthesia options, risks, benefits, and alternatives with patient/parents/legal guardian/POA. Questions invited. The patient/parents/legal guardian/POA seems to understand and agrees to proceed with anesthesia plan. Reviewed the physical assessment, medical history, allergy history and patient home medications list prior to surgery/procedure/anesthetic and documented any changes. Performed airway and anesthesia risk assessments. Anesthesia Type Anesthesia Type: MAC Anesthesia Focused Assessment* Temperature: 98.1 F Pulse Rate: 72 Blood Pressure: 146/70 Respiratory Rate: 18 Pulse Ox: 97 Airway Assessment Mouth opens: >3 cm Mallampati Score: II Focused Labs Anesthesia Preop lab: CBC WBC 8.4 K/mm3 (4.4-11.0) 11/19/24 03:53 11/19/24 RBC 3.59 M/mm3 (4.6-6.2) L 11/19/24 03:53 11/19/24 Hgb 10.9 g/dL (13.0-16.5) L 11/19/24 03:53 5 Hct 32.0 % (40-54) L 11/19/24 03:53 11/19/24 Plt Count 353 K/mm3 (150-450) 11/19/24 03:53 11/19/24 CHEMISTRY Potassium 4.0 mmol/L (3.3-5.1) 11/19/24 03:53 11/19/24 Sodium 132 mmol/L (133-145) L 11/19/24 03:53 11/19/24 Magnesium 2.3 mg/dL (1.5-2.2) H 11/05/24 22:42 11/05/24 Phosphorus 2.6 mg/dL (2.7-4.5) L 11/06/24 04:23 11/06/24 BUN 10 mg/dL (4-19) 11/19/24 03:53 11/19/24 Creatinine 0.95 mg/dL (0.70-1.20) 11/19/24 03:53 11/19/24 Glucose 99 mg/dL (70-99) 11/19/24 03:53 11/19/24 POC Glucose 113 mg/dL (74-106) H 04/27/24 06:06 04/27/24 TSH 1.900 uIU/mL (0.300-4.200) 11/06/24 04:23 04/03/25 COAG PT 12.2 SECONDS (11.7-14.9) 11/05/24 22:42 Pre-Assessment Diagnosis/Proposed Procedure Planned Operative Procedure(s): colonoscopy Anesthesia History 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 When Was Last Pacemaker Check QUESTION #4 FULL TEXT: You/Your Family Experience fever (hyperthermia) with Anesthesia Last Oral Intake Last Oral intake: Last Oral Intake NPO since 00:00 11/19/24 08:57 Meds taken in AM with sips of Yes 11/19/24 08:57 water? Meds patient instructed to bp med 11/19/24 08:57 take am of surgery PONV PONV - selvage machine operator: PONV - selvage machine operator Female HX of Motion Sickness HX of N/V After Surgery Non-Smoker Duration of Surgery greater than 60 minutes Number of Risk Factors PONV Score Height & Weight Height & Weight: Anesthesia: Height & Weight Height 5 ft 7.5 in 11/19/24 08:57 Weight: 68.946 kg 11/19/24 08:57 Body Mass Index (BMI) 23.4 11/19/24 08:57 Respiratory Assessment Respiratory Assessment - selvage machine operator: Respiratory Tract Infection Hx - selvage machine operator Hx Respiratory Tract Infection No 11/18/24 21:04 STOP Sleep Apnea STOP Sleep Apnea - selvage machine operator: STOP Sleep Apnea - selvage machine operator Hx Hypertension Yes 11/18/24 15:46 Hx Sleep Apnea No 11/18/24 15:46 CPAP No 11/18/24 15:46 BIPAP No 11/18/24 15:46 Do you snore loudly (louder No 11/18/24 15:46 than talking or can be heard Do you often feel tired/ No 11/18/24 15:46 fatigued/ sleepy during daytime? Has anyone observed you stop No 11/18/24 15:46 breathing during sleep? STOP Results Negative 11/18/24 15:46 QUESTION #5 FULL TEXT : Do you snore loudly (louder than talking or can be heard through closed doors)? 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 Specify any problems Hx of Preganancy in last 3 N/A 11/18/24 15:46 Months Nurse Filling Out Transfusion TWOLF 11/18/24 15:46 & Questions: Date: 11/18/24 11/18/24 15:46 Time: 15:49 11/18/24 15:46 Patient unable to answer at this time (ie. confused, unrespo /Reproduction History /Reproductive History - selvage machine operator: /Reproductive Hx- selvage machine operator Hx Now No 11/18/24 21:04 Gestational Age (in weeks): EDC: Hx Hx Para Hx Section SAB No 11/07/24 03:37 Active Medications Active Medications: Current Medications Generic Name Dose Route Start Last Admin Trade Name Freq PRN Reason Stop Dose Admin Amlodipine Besylate 5 mg 11/19/24 10:00 11/19/24 09:06 Amlodipine 5 Mg Tablet PO 5 mg DAILY EVITA Administration Protocol Clonidine 0.1 mg 11/18/24 16:30 Clonidine Hcl 0.1 Mg Tablet PO DAILY PRN hbp Protocol Ferrous Sulfate 325 mg 11/19/24 12:00 11/19/24 11:06 Ferrous Sulfate 325 Mg Tablet PO Not Given DAILY@1200 EVITA Sodium Chloride 100 mls @ 15 mls/hr 11/18/24 15:55 IV .Q6H40M PRN Saline Flush Sodium Chloride 100 mls @ 15 mls/hr 11/18/24 15:55 IV .Q6H40M PRN Additional IVPB Infusion Metoprolol Tartrate 25 mg 11/19/24 10:00 11/19/24 09:06 Metoprolol Tartrate 25 Mg Tablet PO 25 mg DAILY EVITA Administration Protocol Simethicone 80 mg 11/18/24 18:00 11/19/24 08:30 Simethicone 80 Mg Chewable Tablet PO Not Given PCHS EVITA Sodium Chloride 10 - 40 ml 11/18/24 15:55 0.9% Saline Lock 10 Ml Syringe IV UD PRN SALINE FLUSH PFSH Medical History Diverticulosis Mediastinal lymphadenopathy 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 Encounter for education Pre-op testing Wears dentures Arthritis Anemia Gastric reflux Former smoker History of edema History of echocardiogram History of stress test Cardiology follow-up encounter Aortic stenosis Preop cardiovascular exam Colon cancer Overweight (BMI 25.0-29.9) Colonic mass Coronary artery disease 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 Chronic hypertension Acute alteration in mental status Neuropathy Vasectomy planned Hyponatremia TIA (transient ischemic attack) CVA (cerebral vascular accident) Hypertension History of stroke Tobacco use Benign essential hypertension Home Medications ?Medication ?Instructions ?Recorded ?Last Taken ?Type amlodipine 5 mg tablet 5 mg PO DAILY HEART 05/16/24 11/05/24 History clonidine HCl 0.1 mg tablet 0.1 mg PO DAILY PRN hbp 10/06/24 History ferrous sulfate 325 mg (65 mg 325 mg PO DAILY 30 days #60 tabs 06/10/24 11/05/24 Rx iron) tablet (Iron (ferrous sulfate)) metoprolol tartrate 50 mg tablet 25 mg PO QDAY Blood p ressure/heart 10/17/24 11/05/24 History rat oxycodone 5 mg tablet 5 mg PO Q6H PRN pain 7 days #28 10/24/24 Unknown Rx tabs Allergy/AdvReac Type Severity Reaction Status Date / Time fentanyl AdvReac Low blood Verified 11/06/24 03:59 pressure Family History Father Arthritis Alcohol abuse Mother Alcohol abuse Liver disease Surgical History History of hemicolectomy (04/25/24) H/O vasectomy S/P right hemicolectomy History of tonsillectomy History of appendectomy 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
--- NOTE | 2024-11-19 12:35 | CASEMGMT ---
Addendum entered by Ashley Admas 11/19/24 15:17: JENNIFER BOLTON into pt room, pt sitting up in bed with and dtr at bedside. Pt agreeable to discussion with family present. Pt states he has not yet followed up with PCP. States he was going to make an appt but ended up back in the hospital. Pt states he has an appt with in December. Pt has not obtained a second opinion either. Pt reports taking medications as ordered. Pt denies any homegoing needs. Pt dtr states she is close and can assist pt as needed. Pt states he has lived his life with [facility] and has chosen to monitor his neoplasm instead of chemo or radiation. DC Plan: Home with family assistance. Original Note: JENNIFER BOLTON Readmission Note Previous Admission: 11/06/24-11/07/24 Diagnosis: LGIB with BRBPR, recurrent DC Disposition: Home Current Admission: Admitted 11/18/24 Current Diagnosis: GI Bleed Pt admitted on index admission and had colonoscopy which found an ulceration at anastomosis site of the partial colectomy. A clip was placed. Pt was dc'd home with hgb of 11.9. Pt follows with Dr. Hernandez for colon cancer. Per previous dc, pt dtr had questioned ivermectin for treatment and was discussing a second opinion. Pt returned to [facility] with blood in stools. Pt hgb was 10.3 on admission. Pt admitted for colonoscopy. JENNIFER BOLTON into pt room, pt currently is down at colonscopy. JENNIFER BOLTON to discuss dc planning with pt when he returns. 6 cl=24 this admission. JENNIFER BOLTON to follow. DC Plan: TBD pending discussion with patient.
--- NOTE | 2024-11-19 12:56 | CON.PCM.GI_ITS ---
HPI Consult Data Date of Consult: 11/19/24 HPI Narrative Reason for Consultation: Lower GI bleed HPI Narrative: JARED PEREZ, is a 79 M who presents for the evaluation of lower GI bleed. He has a past medical history of hypertension and colon cancer. He states that today he went to the bathroom and he had a large amount of bright red blood. He states that this has happened 2 or 3 times since 8 PM. He reports that with his previous bout of blood per rectum he needed emergent surgery and multiple units of blood. Patient denies any history of bleeding disorder or blood thinner use. He denies any known sick contact. He states there is been no chest pain shortness of breath or dizziness or syncope. However with the recurrent episodes of blood per rectum he presents for evaluation. He originally presented to [facility] ED on 04/11/2024 with c/o hematochezia and anemia. CTA of the chest abdomen and pelvis with IV contrast on 04/11/2024 showed mass in the ascending colon, multiple nonspecific enlarged mediastinal nodes. He had colonoscopy on 04/13/2024 which showed an ulcerated, partially obstructing mass at the hepatic flexure. He underwent laparoscopic right hemicolectomy on 04/27/2024. Pathology showed invasive adenocarcinoma, tumor extends to the bistro serosal surface, with lymphovascular and perineural invasion, no gross tumor deposits, lymph nodes 15 out of 16 positive, MSI stable. Pathologic staging pT4 pN2b. He was recently hospitalized with a colonoscopy that showed an ulceration at the anastomosis after his right hemicolectomy that was treated. He states that he noticed bright red blood per rectum this morning around 4 AM with a bowel movement as well as a little bit last night. Denies any lightheadedness or dizziness no other symptoms of anemia. On his last discharge his hemoglobin was 11.9, today it is 10.3. 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 He previously has not wanted chemotherapy but wanted to investigate the possible use of ivermectin for treatment. 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 Chronic hypertension Acute alteration in mental status Neuropathy Vasectomy planned Hyponatremia TIA (transient ischemic attack) CVA (cerebral vascular accident) Hypertension History of stroke Tobacco use Benign essential hypertension Home Medications ?Medication ?Instructions ?Recorded ?Last Taken ?Type amlodipine 5 mg tablet 5 mg PO DAILY HEART 05/16/24 11/05/24 History clonidine HCl 0.1 mg tablet 0.1 mg PO DAILY PRN hbp 10/06/24 History ferrous sulfate 325 mg (65 mg 325 mg PO DAILY 30 days #60 tabs 06/10/24 11/05/24 Rx iron) tablet (Iron (ferrous sulfate)) metoprolol tartrate 50 mg tablet 25 mg PO QDAY Blood p ressure/heart 10/17/24 11/05/24 History rat oxycodone 5 mg tablet 5 mg PO Q6H PRN pain 7 days #28 10/24/24 Unknown Rx tabs Allergy/AdvReac Type Severity Reaction Status Date / Time fentanyl AdvReac Low blood Verified 11/06/24 03:59 pressure Family History Father Arthritis Alcohol abuse Mother Alcohol abuse Liver disease Surgical History History of hemicolectomy (04/25/24) H/O vasectomy S/P right hemicolectomy History of tonsillectomy History of appendectomy 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) Social History Smoking Status: Former smoker alcohol intake: never substance use type: does not use ROS Constitutional Constitutional: Denies fatigue, fever(s), poor appetite, weight gain or weight loss Gastrointestinal Gastrointestinal: Denies belching, bloating, change in bowel habits, change in stool character, chewing difficulty, coffee ground emesis, constipation, cramping, diarrhea, dyspepsia, dysphagia, early satiety, excessive flatus, fecal incontinence, heartburn, hematemesis, hematochezia, hemorrhoids, loose stools, melena, nausea, odynophagia, rectal bleeding, tenesmus, vomiting or weight changes Physical Exam Const alert, oriented x3, no apparent distress and healthy appearing General Appearance: cooperative GI normal to inspection, nondistended, normoactive bowel sounds, soft to palpation, non-tender and non-distended Percussion: normal to percussion Rectal Exam: deferred Medical Records Data Medical Nutrition Assessment Dietitian: Malnutrition Criteria Met Start: 11/19/24 12:52 Freq: Status: Active Protocol: Document 11/19/24 12:52 SLA (Rec: 11/19/24 12:52 SLA [id number]) Nutrition Malnutrition Evidence of Yes Malnutrition Exists Malnutrition (severe Acute Illness/Injury ): Evidenced By Suboptimal Energy Intake (Severe),Weight Loss (Severe) Clinical Problem Acute Disease or Injury Related Malnutrition Etiology related to flu and diarrhea w/ inadequate energy intake Signs/Symptoms as evidenced by 5.1% unplanned wt loss and po intake meeting <50% of 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 Lab / Micro Data 11/19/24 03:53 11/19/24 03:53 Labs: Laboratory Results - last 24 hr 11/19/24 03:53: WBC 8.4, RBC 3.59 L, Hgb 10.9 L, Hct 32.0 L, MCV 89.1, MCH 30.4, MCHC 34.1, RDW Std Deviation 41.0, RDW Coeff of Deepika 12.5, Plt Count 353, MPV 9.2, Immature Gran % (Auto) 0.400, Neut % (Auto) 73.3 H, Lymph % (Auto) 14.2 L, [place] % (Auto) 10.0, Eos % (Auto) 1.9, Baso % (Auto) 0.2, Absolute Neuts (auto) 6.2, Absolute Lymphs (auto) 1.20, Nucleated RBC % 0, Sodium 132 L, Potassium 4.0, Chloride 99, Carbon Dioxide 21.0, Anion Gap 12, BUN 10, Creatinine 0.95, Estim Creat Clear Calc 57.98, Est GFR (MDRD) Non-Af 81, BUN/Creatinine Ratio 10.4, Glucose 99, Calcium 8.8 Assessment & Plan Assessment/Plan (1) GI (gastrointestinal bleed): QUALIFIERS: GI bleed type/associated pathology: unspecified gastrointestinal hemorrhage type Qualified Code(s): K92.2 - Gastrointestinal hemorrhage, unspecified PLAN: Hg stable. GI on consult. CTA A/P no obvious source of bleeding. Suspect lower source Follow up CBC. PLAN: Plan An 79 yo with h/o 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: He had a Right colon cancer, s/p right hemicolectomy. Pathologic stage pT4 PN2b. Prognostic stage IIIC. CT chest, abdomen and pelvis shows multiple nonspecific mediastinal lymph nodes, hypodensity in the liver. PET/CT on 05/29/2024 showed Hypermetabolic activities in subcarinal node, R hilar node, liver and LE/GEJ area. Biopsy of esophagus and stomach were negative. Biopsy of mediastinal nodes were negative. He declined chemotherapy was suggested. Comes for follow up, CT on 10/24/2024 shows metastatic disease in peritoneum and Liver. Does not chemotherapy. He comes in for repeat lower GI bleeding. He previously underwent a flexible sigmoidoscopy. He will undergo colonoscopy. Charges/Coding Visit Charges Inpatient E&M: 85101 Init Hosp L3
[2024-11-19] MEDS: 0.9% Normal Saline (Pres. free 10 ML Vial (13:39)
[2024-11-19] MEDS: Epinephrine (1 mg/ml) 1 MG/ML VIAL (13:39)
--- NOTE | 2024-11-19 14:02 | PCM.POST.ANE ---
Anesthesia: Postop Eval I Current Vital Signs Temperature: 97 F Pulse Rate: 78 Blood Pressure: 116/66 Respiratory Rate: 16 Pulse Ox: 98 Oxygen Delivery Method: Room Air Assessment Airway patent: Yes Spontaneous unlabored respirations: Yes Mental status: Awake nausea: No Vomiting: No Anesthesia Complication: No Fluid Hydration Crystalloid volume administer (ml): 60 Total IV fluid infused: 60 Progress Note Anesthesia document: Postop Eval 1 completed: Yes
[2024-11-19] MEDS: SimETHICONE 80 MG Chewable Tablet PO ×2 (17:36→21:15)
--- NOTE | 2024-11-19 18:16 | PCM.PN.HOSP ---
Reason for Visit Reason for Visit: Diagnoses Gastrointestinal hemorrhage, unspecified (11/18/24) Subjective Subjective Patient was seen and examined today, his hemoglobin this morning was 10.9, he is due to undergo endoscopy today. Objective Data Objective Data Vital Signs: Vital Signs Temp Pulse Resp BP Pulse Ox O2 Del Method 98.3 F 66 18 156/82 H 97 Room Air 11/19/24 14:29 11/19/24 14:29 11/19/24 14:29 11/19/24 14:29 11/19/24 14:29 11/19/24 14:29 Oxygen Delivery Method Room Air Weight: 68.946 kg Body Mass Index (BMI) 23.4 Intake & Output: Intake and Output for Last 24 Hours 11/17/24 11/18/24 11/19/24 23:59 23:59 23:59 Intake Total 1800 / 1800 600 / 600 Balance 1800 / 1800 600 / 600 Medical Nutrition Assessment Dietitian: Malnutrition Criteria Met Start: 11/19/24 12:52 Freq: Status: Active Protocol: Document 11/19/24 12:52 SLA (Rec: 11/19/24 12:52 SLA [email or web address]) Nutrition Malnutrition Evidence of Yes Malnutrition Exists Malnutrition (severe Acute Illness/Injury ): Evidenced By Suboptimal Energy Intake (Severe),Weight Loss (Severe) Clinical Problem Acute Disease or Injury Related Malnutrition Etiology related to flu and diarrhea w/ inadequate energy intake Signs/Symptoms as evidenced by 5.1% unplanned wt loss and po intake meeting <50% of 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 Lab / Micro Data 11/19/24 03:53 11/19/24 03:53 Labs: Laboratory Results - last 24 hr 11/19/24 03:53: WBC 8.4, RBC 3.59 L, Hgb 10.9 L, Hct 32.0 L, MCV 89.1, MCH 30.4, MCHC 34.1, RDW Std Deviation 41.0, RDW Coeff of Deepika 12.5, Plt Count 353, MPV 9.2, Immature Gran % (Auto) 0.400, Neut % (Auto) 73.3 H, Lymph % (Auto) 14.2 L, [place] % (Auto) 10.0, Eos % (Auto) 1.9, Baso % (Auto) 0.2, Absolute Neuts (auto) 6.2, Absolute Lymphs (auto) 1.20, Nucleated RBC % 0, Sodium 132 L, Potassium 4.0, Chloride 99, Carbon Dioxide 21.0, Anion Gap 12, BUN 10, Creatinine 0.95, Estim Creat Clear Calc 57.98, Est GFR (MDRD) Non-Af 81, BUN/Creatinine Ratio 10.4, Glucose 99, Calcium 8.8 Physical Exam Const alert, oriented x3, no apparent distress and average body habitus General Appearance: cooperative, well kempt and well developed Orientation / Consciousness: awake, oriented to person, oriented to place and oriented to time HEENT normocephalic, head/scalp atraumatic and moist oral mucous membranes Eyes PERRL, EOMs intact bilaterally and conjunctivae normal Neck supple, no JVD, thyroid normal and no carotid bruits General: trachea midline Resp normal respiratory effort and clear to auscultation bilaterally Auscultation: Negative for rales, rhonchi or wheezes Cardio regular rate, regular rhythm, S1 normal heart sound, S2 normal heart sound, no murmurs, no rub and no gallops GI normal to inspection, nondistended, normoactive bowel sounds, soft to palpation, non-tender and non-distended Extremity no clubbing, cyanosis or edema Skin no rashes or lesions noted General Skin Exam: no breakdown Neuro oriented x3, CN's II-XII intact bilaterally, moves all extremities, no focal motor deficits and no sensory deficits noted Sensorium / Orientation: awake and alert Speech: speech normal Psych affect normal Assessment & Plan Assessment/Plan (1) Rectal bleeding: PLAN: Plan 1. Bright red rectal bleeding-etiology unclear, patient is being seen by gastroenterology and will undergo endoscopy. Patient's CBC will be monitored #2 acute anemia secondary to GI bleed-etiology unclear, patient's CBC will be monitored #3 essential hypertension-patient will remain on his home medications, blood pressure will be monitored Total clinical time spent by myself addressing the patient's medical issues, reviewing all of his data, and collaborating with patient's care team: 35 minutes Charges/Coding Visit Charges Inpatient E&M: 70845 Subs Hosp L2
[2024-11-20 04:25] VITALS: BP 136/86; PULSE 82; RESP 16; TEMP 36.5; O2SAT 100
[2024-11-20 07:01] LABS: Absolute Lymphocyte Count 1.21 X10^3/uL (0.83-4.51); Absolute Neutrophil Count 7.6 X10^3/uL (2.0-7.7); Basophil# 0.03 X10^3/uL; Basophil% 0.3 % (0-1); Eosinophil# 0.17 X10^3/uL; Eosinophils% 1.7 % (0-5); Hematocrit 29.4 % (40-54); Hemoglobin 10.3 g/dL (13.0-16.5); Lymphocyte # 1.21 X10^3/ul (0.83-4.51); Mean Corpuscular Hgb 30.8 pg (27.0-32.0); Mean Platelet Vol. 8.7 fl (6.2-12.0); Monocyte# 1.03 X10^3/uL; Monocyte% 10.2 % (0-10); NRBC Flagged by Analyzer 0 % (0-5); Neutrophil % 75.5 % (47-70); Platelet Count 314 K/mm3 (150-450); RBC Distribution Width CV 12.6 % (11.6-14.6); RBC Distribution Width SD 40.2 fl (35.1-43.9); Red Blood Count 3.34 M/mm3 (4.6-6.2); White Blood Count 10.1 K/mm3 (4.4-11.0)
--- NOTE | 2024-11-20 07:57 | OP.COLON_ITS ---
Patient Name: Shaan Raymond Procedure Date: 11/19/2024 1:03 PM Date of : 1945 Age: 79 Procedure: Colonoscopy Indications: Hematochezia Providers: Ari Silvestre DO Referring MD: Kelvin Schrader Medicines: Monitored Anesthesia Care Patient Profile: This is an 79 year old male. Refer to note in patient chart for documentation of history and physical. Last Colonoscopy: Complications: No immediate complications. Procedure: Pre-Anesthesia Assessment: - Prior to the procedure, a History and Physical was performed, and patient medications and allergies were reviewed. The patient is competent. The risks and benefits of the procedure and the sedation options and risks were discussed with the patient. All questions were answered and informed consent was obtained. Patient identification and proposed procedure were verified by the physician in the pre-procedure area. Mental Status Examination: alert and oriented. Airway Examination: normal oropharyngeal airway and neck mobility. Prophylactic Antibiotics: The patient does not require prophylactic antibiotics. Prior Anticoagulants: The patient has taken no anticoagulant or antiplatelet agents. ASA Grade Assessment: III - A patient with severe systemic disease. After reviewing the risks and benefits, the patient was deemed in satisfactory condition to undergo the procedure. The anesthesia plan was to use monitored anesthesia care (MAC). Immediately prior to administration of medications, the patient was re-assessed for adequacy to receive sedatives. The heart rate, respiratory rate, oxygen saturations, blood pressure, adequacy of pulmonary ventilation, and response to care were monitored throughout the procedure. The physical status of the patient was re-assessed after the procedure. After I obtained informed consent, the scope was passed under direct vision. Throughout the procedure, the patient's blood pressure, pulse, and oxygen saturations were monitored continuously. The pediatric colonoscope was introduced through the anus and advanced to the ileocolonic anastomosis. The colonoscopy was performed with ease. The patient tolerated the procedure well. The quality of the bowel preparation was adequate. The terminal ileum, ileocecal valve, appendiceal orifice, and rectum were photographed. Scope In: 1:17:45 PM Scope Out: 1:45:28 PM Total Procedure Duration Time 0 hours 27 minutes 43 seconds Findings: The perianal and digital rectal examinations were normal. Non-bleeding internal hemorrhoids were found during retroflexion. The hemorrhoids were Grade III (internal hemorrhoids that prolapse but require manual reduction). A 5 mm anal fissure was found in the anal canal. Multiple small and large-mouthed diverticula were found in the recto-sigmoid colon and sigmoid colon. There was evidence of a prior end-to-end ileo-colonic anastomosis in the ascending colon. This was patent and was characterized by a hemorrhagic appearance, ulceration and an intact staple line. The anastomosis was traversed. Area was successfully injected with 10 mL of a 0.1 mg/mL solution of epinephrine for drug delivery. Coagulation for hemostasis using heater probe was successful. Estimated blood loss was minimal. Discontinuous areas of nonbleeding ulcerated mucosa with no stigmata of recent bleeding were present in the ascending colon. Coagulation for bleeding prevention using heater probe was successful. Estimated blood loss was minimal. A localized area of severely friable mucosa with spontaneous bleeding was found at the anastomosis. For hemostasis, three hemostatic clips were successfully placed. Clip shift mgr: [employer]. There was no bleeding at the end of the procedure. The terminal ileum appeared normal. Impression: - Non-bleeding internal hemorrhoids. - Anal fissure. - Diverticulosis in the recto-sigmoid colon and in the sigmoid colon. - Patent end-to-end ileo-colonic anastomosis, characterized by a hemorrhagic appearance, ulceration and an intact staple line. Injected. Treated with a heater probe. - Mucosal ulceration. Treated with a heater probe. - Friability with spontaneous bleeding at the colonic anastomosis. Clips were placed. Clip shift mgr: [employer]. - The examined portion of the ileum was normal. - No specimens collected. Recommendation: - [facility]. - Resume previous diet. - Continue present medications. - Repeat colonoscopy in 1 year to assess disease activity. Procedure Code(s): --- Professional --- 98202, Colonoscopy, flexible; with control of bleeding, any method 57046, 59, Colonoscopy, flexible; with directed submucosal injection(s), any substance CPT copyright 2021 [employer]. All rights reserved. The codes documented in this report are preliminary and upon training mgr review may be revised to meet current compliance requirements. Ari Silvestre DO 11/20/2024 7:56:55 AM This report has been signed electronically. Number of Addenda: 0 Note Initiated On: 11/19/2024 1:03 PM
--- NOTE | 2024-11-20 07:57 | OP.CCLET_ITS ---
11/20/2024 Marlon Guerra Re : Colonoscopy procedure for Shaan Raymond Dear Shahram This procedure was performed on Tuesday, November 19, 2024. My impressions and recommendations are as follows: Impressions : - Non-bleeding internal hemorrhoids. - Anal fissure. - Diverticulosis in the recto-sigmoid colon and in the sigmoid colon. - Patent end-to-end ileo-colonic anastomosis, characterized by a hemorrhagic appearance, ulceration and an intact staple line. Injected. Treated with a heater probe. - Mucosal ulceration. Treated with a heater probe. - Friability with spontaneous bleeding at the colonic anastomosis. Clips were placed. 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 - The examined portion of the ileum was normal. - No specimens collected. Recommendations : - Return patient [facility] for [facility] care. - Resume previous diet. - Continue present medications. - Repeat colonoscopy in 1 year to assess disease activity. My findings are described in the full procedure note, which is enclosed. If I can be of further assistance, please feel free to contact me at . Sincerely, Ari Silvestre, 11/20/2024 7:56:55 AM This report has been signed electronically.
[2024-11-20 09:25] VITALS: BP 133/75; PULSE 85; RESP 18; TEMP 36.7; O2SAT 99
[2024-11-20 09:26] VITALS: PULSE 85
--- NOTE | 2024-11-20 09:52 | PCM.POSTANE2 ---
Anesthesia Postop Eval I Sum Postop Eval Completion status Anesthesia document: Postop Eval 1 completed: Yes Anesthesia Postop Eval I Summary Anesthesia Postop Eval I Summary: Anesthesia Postop Eval I: Assessment Summary Airway patent Yes 11/19/24 14:04 [email or web address] Spontaneous unlabored Yes 11/19/24 14:04 [email or web address] respirations Mental status Awake 11/19/24 14:04 [email or web address] nausea No 11/19/24 14:04 [email or web address] Vomiting No 11/19/24 14:04 [email or web address] Anesthesia Postop Eval I: Fluid Summary Crystalloid volume administer 60 11/19/24 14:05 [email or web address] (ml) Colloids volume administered ( ml) Blood Product volume administered (ml) Total IV fluid infused 60 11/19/24 14:05 [email or web address] Anesthesia Postop Eval I: Summary Notes Anesthesia Complication No 11/19/24 14:04 [email or web address] Anesthesia Complication Comment: Post-operative progress note Anesthesia: Postop Eval II Evaluation Mental status: Awake and Calm Pain Level: 0 nausea: No Vomiting: No Complications Anesthesia Complication: No
[2024-11-20 10:37] VITALS: PULSE 80
[2024-11-20] MEDS: amLODIPine 5 MG Tablet PO (10:37)
[2024-11-20] MEDS: Metoprolol Tartrate 25 MG Tablet PO (10:37)
[2024-11-20] MEDS: SimETHICONE 80 MG Chewable Tablet PO (10:37)
[2024-11-20] MEDS: oxyCODONE 5 MG Tablet PO (11:51)
[2024-11-20] MEDS: Ferrous Sulfate 325 MG Tablet PO (11:52)
--- NOTE | 2024-11-20 12:41 | PCM.DC ---
Discharge Instructions Diet Discharge Diet: No restrictions DC O2, CPAP, BIPAP needs Home O2 Discharge instructions: No Dressing / Incision Discharge Activity: Return to Normal Activity Weight Bearing Status: Full weight bearing Follow Up Care Test Results: Test results from this visit will be discussed in further detail at your follow-up appointment, if applicable. Discharge Plan Admission Admit Date/Time: 11/18/24 12:59 Primary Reason for Your Visit: Lower GI bleed Attending Provider: Neville Jang Primary Care Provider: Tami Omalley Consulting Providers: Kelvin Schrader Discharge Orders/Prescriptions Prescriptions: New oxycodone 5 mg tablet 5 mg PO Q4H PRN (Reason: pain) 7 Days Qty: 30 0RF Continued metoprolol tartrate 50 mg tablet 25 mg PO QDAY amlodipine 5 mg tablet 5 mg PO DAILY ferrous sulfate [Iron (ferrous sulfate)] 325 mg (65 mg iron) tablet 325 mg PO DAILY 30 Days Qty: 60 5RF clonidine HCl 0.1 mg tablet 0.1 mg PO DAILY PRN (Reason: hbp) Patient Comments: pt states he only takes if bp is over 200+ oxycodone 5 mg tablet 5 mg PO Q6H PRN (Reason: pain) 7 Days Qty: 28 0RF Referrals / Follow Up: Tami Omalley NP-C [Primary Care Provider] - Selam Craig NP, NP-C [Med Staff - [facility] Practice [facility]] - See Referral Note (The office will call you to confirm an appointment time) Disposition Disposition (needs filled in before D/C Order can be placed): Home, Self Care
[2024-11-20 13:22] VITALS: BP 139/81; PULSE 86; RESP 18; TEMP 36.7; O2SAT 95
--- NOTE | 2024-11-20 13:22 | DS.PCM_ITS ---
Providers Date of Admission: 11/18/24 Date of Discharge: 11/20/24 Primary Care Physician: MARYAM Guerra Consultations 11/18/24 15:39 Consult: Gastroenterology Routine Consulting Provider: [facility] Reason for Consult: repeat colonoscopy EMERGENT Consult: No MD Notified: Yes Date Notified: 11/19/24 Time Notified: 05:55 Method of Notification: Text Reason For Visit: GI BLEED Diagnosis Discharge Diagnosis (1) Rectal bleeding: Status: Acute Code(s): K62.5 - Hemorrhage of anus and rectum Plan 1. Bright red rectal bleeding-secondary to hemorrhage at the end to end ileocolonic anastomosis treated with a heater probe and injections as well as clips #2 acute anemia secondary to GI bleed #3 essential hypertension-patient will remain on his home medications, blood pressure will be monitored #4 metastatic colon cancer to the liver and abdominal cavity Total clinical time spent by myself addressing the patient's medical issues, reviewing all of his data, and collaborating with patient's care team: 35 minutes Medications at Discharge Home Medications amlodipine 5 mg tablet 5 mg PO DAILY HEART 05/16/24 clonidine HCl 0.1 mg tablet 0.1 mg PO DAILY PRN hbp 06/08/24 ferrous sulfate 325 mg (65 mg iron) tablet (Iron (ferrous sulfate)) 325 mg PO DAILY 30 days #60 tabs 06/10/24 metoprolol tartrate 50 mg tablet 25 mg PO QDAY Blood pressure/heart rat 10/17/24 oxycodone 5 mg tablet 5 mg PO Q6H PRN pain 7 days #28 tabs 10/24/24 oxycodone 5 mg tablet 5 mg PO Q4H PRN pain 7 days #30 tabs 11/20/24 Hospital Course Operations None Procedures Colonoscopy Summary of Care Provided Minutes Spent on Discharge: 31 Hospital Course: This 79-year-old white male was seen in the emergency room at [facility] with complaints of bright red rectal bleeding. Patient had undergone colonoscopy on 11/06/2024 which showed bleeding at his anastomotic site from his previous colon cancer resection. Labs in the emergency room showed the patient's hemoglobin to be 10.3, chemistry profile was remarkable for a sodium of 130. Patient was admitted to [place] [id number] and repeat labs were monitored, there was not a significant drop in the patient's hemoglobin, he was seen in consultation by gastroenterology and underwent a colonoscopy which showed bleeding at his anastomotic site in the ileum/colonic region. Clips, injection, and heater probe was used. I had a lengthy discussion with the patient and the patient's , there is documentation in the patient's chart from his oncologist that stated the patient did not want chemotherapy for his metastatic colon cancer, patient denied this and stated that he would consider treatment. I contacted the oncology nurse for Dr. Hernandez, she will arrange for the patient to see Dr. Araujo because the patient and his wanted to see a different physician at oncology because of their hearing impairment, they felt it was hard to understand Dr. Hernandez. Oncology will be contacting the patient for an upcoming appointment. On 11/20/2024, patient was seen and examined: On examination he appeared in good health and spirits. Vital signs as documented. Skin warm and dry and without overt rashes. Neck without JVD, neck was supple, trachea midline, thyroid was normal. Lungs clear bilaterally, normal air movement was noted. Heart exam notable for regular rhythm, normal sounds and absence of murmurs, rubs or gallops. Abdomen unremarkable and without evidence of organomegaly, masses, or abdominal aortic enlargement. Bowel sounds are present, abdomen is not distended. Extremities nonedematous, no cyanosis was noted, no clubbing was noted. Neuro: Cranial nerves II through XII are grossly intact, no focal motor deficits were noted, sensation to light touch and pinprick intact, motor exam 5/5 throughout. Psych: Patient is alert and oriented x3, he does not appear anxious or depressed, he does not appear agitated. Patient was discharged home in stable condition on 11/20/2024 Medical Records Data Medical Nutrition Assessment Dietitian: Malnutrition Criteria Met Start: 11/19/24 12:52 Freq: Status: Active Protocol: Document 11/19/24 12:52 SLA (Rec: 11/19/24 12:52 SLA [id number]) Nutrition Malnutrition Evidence of Yes Malnutrition Exists Malnutrition (severe Acute Illness/Injury ): Evidenced By Suboptimal Energy Intake (Severe),Weight Loss (Severe) Clinical Problem Acute Disease or Injury Related Malnutrition Etiology related to flu and diarrhea w/ inadequate energy intake Signs/Symptoms as evidenced by 5.1% unplanned wt loss and po intake meeting <50% of estimated nutritional needs 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 Weight / BMI Weight Weight: 68.946 kg Body Mass Index (BMI) 23.4 ABG / Lab / Microbiology Data 11/20/24 06:52 11/19/24 03:53 Laboratory: Laboratory Results - last 24 hr 11/20/24 06:52: WBC 10.1, RBC 3.34 L, Hgb 10.3 L, Hct 29.4 L, MCV 88.0, MCH 30.8, MCHC 35.0, RDW Std Deviation 40.2, RDW Coeff of Deepika 12.6, Plt Count 314, MPV 8.7, Immature Gran % (Auto) 0.300, Neut % (Auto) 75.5 H, Lymph % (Auto) 12.0 L, [place] % (Auto) 10.2 H, Eos % (Auto) 1.7, Baso % (Auto) 0.3, Absolute Neuts (auto) 7.6, Absolute Lymphs (auto) 1.21, Nucleated RBC % 0 D/C Instructions Discharge Diet: No restrictions Weight Bearing Status: Full weight bearing DC O2, CPAP, BIPAP Needs Home O2 Discharge instructions: No Meaningful Use Info Meaningful Use Meaningful Use Diagnoses (Choose all that apply): None applicable Ischemic Stroke Statin Dosing Therapy Reference: STATIN DOSE THERAPY REFERENCE: * Patients > 75 years receive moderate or high dose statin therapy. * Patients 75 years or YOUNGER should receive HIGH intensity statin dose unless contraindicated. You will be required to document reason for non-treatment if statin daily dose does not meet guidelines. HIGH DOSE STATIN THERAPY DAILY Atorvastatin > than or = to 40 mg Rosuvastatin > than or = to 20 mg Amlodipine + Atorvastatin > than or = to 2.5/40 mg Ezetimibe + Simvastatin 10/80 mg Simvastatin 80mg Discharge Plan Admission Admit Date/Time: 11/18/24 12:59 Primary Reason for Your Visit: Lower GI bleed Attending Provider: Neville Jang Primary Care Provider: Tami Omalley Consulting Providers: Kelvin Schrader Discharge Orders/Prescriptions Prescriptions: New oxycodone 5 mg tablet 5 mg PO Q4H PRN (Reason: pain) 7 Days Qty: 30 0RF Continued metoprolol tartrate 50 mg tablet 25 mg PO QDAY amlodipine 5 mg tablet 5 mg PO DAILY ferrous sulfate [Iron (ferrous sulfate)] 325 mg (65 mg iron) tablet 325 mg PO DAILY 30 Days Qty: 60 5RF clonidine HCl 0.1 mg tablet 0.1 mg PO DAILY PRN (Reason: hbp) Patient Comments: pt states he only takes if bp is over 200+ oxycodone 5 mg tablet 5 mg PO Q6H PRN (Reason: pain) 7 Days Qty: 28 0RF Referrals / Follow Up: Tami Omalley NP-C [Primary Care Provider] - 11/28/24 11:00 am Selam Craig NP, NP-C [Med Staff - [facility] Practice Prof] - See Referral Note (The office will call you to confirm an appointment time) Disposition Disposition (needs filled in before D/C Order can be placed): Home, Self Care Charges/Coding Visit Charges Inpatient E&M: 03419 Disch Hosp >30min
--- NOTE | 2024-11-20 13:42 | PHA.DC.MR.R ---
Pharmacy [place] Med Reconciliation Pharmacy Service has performed discharge medication reconciliation for this patient. The patient's discharge medication list was reviewed for discrepancies and discrepancies were resolved. Medications at Discharge Home Medications amlodipine 5 mg tablet 5 mg PO DAILY HEART 05/16/24 clonidine HCl 0.1 mg tablet 0.1 mg PO DAILY PRN hbp 06/08/24 ferrous sulfate 325 mg (65 mg iron) tablet (Iron (ferrous sulfate)) 325 mg PO DAILY 30 days #60 tabs 06/10/24 metoprolol tartrate 50 mg tablet 25 mg PO QDAY Blood pressure/heart rat 10/17/24 oxycodone 5 mg tablet 5 mg PO Q6H PRN pain 7 days #28 tabs 10/24/24 oxycodone 5 mg tablet 5 mg PO Q4H PRN pain 7 days #30 tabs 11/20/24
== END 2024-11-20 15:17 | disposition home or self-care (01) | DRG 919 ==
LOC: ED 14:05 → MS3 14:33
PROVIDERS: Internal Medicine Gastroenterology; Physician Assistant; Admitting Provider Family Medicine; Emergency Provider Emergency Medicine; PCP Nurse Practitioner Family; Referring Provider Family Medicine; Visit Provider Internal Medicine
PROC: 0DJD8ZZ Inspection of Lower Intestinal Tract, Via Natural or Artificial Opening Endoscopic (ICD-10-PCS; CPT 45378; principal; 2024-11-19 12:40)
DX: K91.840 Postprocedural hemorrhage of a digestive system organ or structure following a digestive system procedure (principal); K57.31 Diverticulosis of large intestine without perforation or abscess with bleeding; E43 Unspecified severe protein-calorie malnutrition; C78.6 Secondary malignant neoplasm of retroperitoneum and peritoneum; C78.7 Secondary malignant neoplasm of liver and intrahepatic bile duct; C18.2 Malignant neoplasm of ascending colon; C18.3 Malignant neoplasm of hepatic flexure; D62 Acute posthemorrhagic anemia; K62.5 Hemorrhage of anus and rectum; D63.0 Anemia in neoplastic disease; I10 Essential (primary) hypertension; I25.10 Atherosclerotic heart disease of native coronary artery without angina pectoris; K64.2 Third degree hemorrhoids; K60.2 Anal fissure, unspecified; Z95.1 Presence of aortocoronary bypass graft; Z68.23 Body mass index [BMI] 23.0-23.9, adult; Z98.0 Intestinal bypass and anastomosis status; Z90.49 Acquired absence of other specified parts of digestive tract; Z91.148 Patient's other noncompliance with medication regimen for other reason; Z79.899 Other long term (current) drug therapy; Z87.891 Personal history of nicotine dependence
CPT/HCPCS: 36415; 74177; 80048; 85025; 86850; 86900; 86901; 97802; 99284; C1889; Q9967; A4216; J2405

== ENCOUNTER → 2024-11-28 | Outpatient (CLI) | payer SELFPAY ==
--- NOTE | 2024-11-28 12:48 | ECHOCS_ITS ---
Reason For Study : Evaluate Aortic Stenosis Procedure This was a 2D Doppler, Color Flow transthoracic echocardiogram. Contrast injection was performed. Exam performed in department. Left Ventricle Normal LV size. Left ventricular systolic function is normal. The left ventricular ejection fraction is 65 %. Stage 1 diastolic dysfunction. No regional wall motion abnormalities noted. Right Ventricle Normal RV size. Normal systolic function. Atria Normal left atrium. Normal right atrium. Mitral Valve Normal mitral valve. Tricuspid Valve Normal tricuspid valve. Mild (1+) tricuspid valve insufficiency. Pulmonary artery systolic pressure is 24 mmHg. Aortic Valve Trisinus/trileaflet aortic valve. Moderate focal aortic valve calcification. Peak aortic valve gradient 74 mmHg. Mean aortic valve gradient 44 mmHg. Pulmonic Valve Normal pulmonic valve. Medication 22 gauge I.V. with prn adaptor inserted into right arm. Diluted definity 1.5ml given slow IV push to enhance endocardial definition. MMode/2D Measurements & Calculations LVIDd: 4.4 cm IVSd: 1.2 cm LVOT diam: 2.3 cm LVIDs: 2.6 cm LVPWd: 1.1 cm LVOT area: 4.3 cm2 RVDd: 3.5 cm FS: 41.8 % Ao root diam: 3.7 cm LAV(MOD-bp): 57.2 ml LVAd ap4: 34.1 cm2 LAV(MOD-bp) Indexed: 31.7 ml/m2 LVLd ap4: 7.8 cm LAV(MOD-sp2): 57.9 ml EDV(MOD-sp4): 120.1 ml LAV(MOD-sp4): 51.9 ml EDV(sp4-el): 126.7 ml LVAs ap4: 18.6 cm2 LVLs ap4: 6.4 cm ESV(MOD-sp4): 43.6 ml ESV(sp4-el): 46.1 ml EF(MOD-sp4): 63.7 % EF(sp4-el): 63.6 % SV(MOD-sp4): 76.5 ml SV(sp4-el): 80.6 ml LA A4 area: 18.9 cm2 SI(MOD-sp4): 42.4 ml/m2 LA dimension(2D): 4.3 cm RA A4 area: 13.2 cm2 Time Measurements MV dec time: 0.23 sec Doppler Measurements & Calculations MV E max evangelist: 90.5 cm/sec Lat Peak E' Evangelist: 8.0 cm/sec Med Peak E' Evangelist: 4.5 cm/sec MV A max evangelist: 115.2 cm/sec E/E' lat: 11.3 E/E' med: 20.3 MV E/A: 0.79 MV V2 max: 119.9 cm/sec MV P1/2t max evangelist: 118.1 cm/sec Ao V2 max: 429.2 cm/sec MV max P.8 mmHg MV P1/2t: 90.0 msec Ao max P.7 mmHg MV V2 mean: 63.8 cm/sec Ao V2 mean: 314.4 cm/sec MV mean P.0 mmHg MV dec slope: 384.3 cm/sec2 Ao mean P.4 mmHg MV V2 VTI: 39.0 cm MVA(P1/2t): 2.4 cm2 Ao V2 VTI: 115.9 cm AV (velocity ratio): 0.27 MVA(VTI): 3.4 cm2 PAT(I,D): 1.1 cm2 PAT(V,D): 0.93 cm2 LV V1 max: 92.7 cm/sec SV(LVOT): 132.9 ml PA V2 max: 112.1 cm/sec LV V1 max P.4 mmHg LV V1 mean P.4 mmHg LV V1 mean: 74.6 cm/sec LV V1 VTI: 30.9 cm TR max evangelist: 228.8 cm/sec TR max P.9 mmHg ECHO/Echo Complete W/ Contrast Interpretation Summary Normal LV size. Left ventricular systolic function is normal. The left ventricular ejection fraction is 65 %. Stage 1 diastolic dysfunction. Peak aortic valve gradient 74 mmHg. Mean aortic valve gradient 44 mmHg. Severe aortic stenosis. Compared to the previous the gradients are worse. Ordering Physician: Rafael Webster Referring Physician: Rafael Webster Performed By: Gt Rosa RCS
== END | disposition home or self-care (01) ==
LOC: CVS 12:44
PROVIDERS: PCP Nurse Practitioner Family; Referring Provider Nurse Practitioner Family; Visit Provider Nurse Practitioner Family
DX: I35.0 Nonrheumatic aortic (valve) stenosis (principal)
CPT/HCPCS: 93306; Q9957; A4216; C8929

== ENCOUNTER → 2024-11-30 | Outpatient (CLI) | payer SELFPAY ==
--- NOTE | 2024-11-30 14:35 | CT_ITS ---
PROCEDURE: CHEST WITH CONTRAST 11/30/2024 REASON FOR EXAM: RESTAGING COLON CANCER TECHNIQUE: Prone and supine chest CT with intravenous contrast, high resolution CT (HRCT) protocol. Coronal and Sagittal reconstruction series were provided. CONTRAST: Isovue 370 VOLUME: 100 mL One or more dose reduction techniques were used (e.g., Automated exposure control, adjustment of the mA and/or kV according to patient size, use of iterative reconstruction technique). RADIATION DOSE SUMMARY: CTDlvol: 30 mGy DLP: 380 mGycm COMPARISON: CT abdomen pelvis 10/2024, CTA chest, abdomen and pelvis 06/08/2024. FINDINGS: Hardware: Prior median sternotomy and CABG. Lymph nodes: No axillary, mediastinal or hilar lymphadenopathy. Heart and Vasculature: The heart is normal in size without pericardial effusion. Prior CABG. Moderate calcific plaque of the thoracic aorta. The great vessels are normal in caliber. Lungs and Airways: The central airways are patent. Mild emphysema and scattered areas of scarring. Persistent biapical scarring and nodularity ([id number]-[id number]). No new or enlarging pulmonary nodules. No pleural effusion or pneumothorax. Upper Abdomen: See recent CT abdomen pelvis. Partially visualized multiple hepatic lesions and retroperitoneal nodularity, compatible with metastatic disease. Bones: Cervical and thoracic spondylosis. CT/Chest WITH Contrast IMPRESSION: 1. Unchanged biapical scarring and nodularity, greater in the left upper lobe, stable since at least 04/11/2024 and most compatible with treated neoplasm. Correlation with prior treatment recommended . 2. No new or enlarging pulmonary lesion or lymphadenopathy. 3. Partially visualized hepatic lesions and retroperitoneal nodularity, better evaluated on recent CT abdomen pelvis and compatible with metastatic disease. Reading Location: [id number]
== END | disposition home or self-care (01) ==
LOC: CT 14:23
PROVIDERS: PCP Nurse Practitioner Family; Referring Provider Internal Medicine Hematology & Oncology; Visit Provider Internal Medicine Hematology & Oncology
DX: C78.7 Secondary malignant neoplasm of liver and intrahepatic bile duct (principal); C77.9 Secondary and unspecified malignant neoplasm of lymph node, unspecified; C18.2 Malignant neoplasm of ascending colon
CPT/HCPCS: 71260; Q9967; A4216

== ENCOUNTER → 2024-12-05 | Outpatient (CLI) | payer SELFPAY ==
[2024-12-05] VITALS (21 sets, daily range): BP systolic 117–185; BP diastolic 59–109; PULSE 58–65; RESP 11–19; TEMP 36.7; O2SAT 96–100; BMI 23.4
[2024-12-05 07:56] LABS: Absolute Lymphocyte Count 0.91 X10^3/uL (0.83-4.51); Absolute Neutrophil Count 5.6 X10^3/uL (2.0-7.7); Basophil# 0.02 X10^3/uL; Basophil% 0.3 % (0-1); Eosinophil# 0.17 X10^3/uL; Eosinophils% 2.3 % (0-5); Hematocrit 29.2 % (40-54); Lymphocyte # 0.91 X10^3/ul (0.83-4.51); Lymphocyte % 12.1 % (19-41); Mean Corp Hgb Conc 34.2 g/dL (32-36); Mean Corpuscular Hgb 30.4 pg (27.0-32.0); Mean Corpuscular Volume 88.8 fL (80-94); Mean Platelet Vol. 8.8 fl (6.2-12.0); Monocyte# 0.81 X10^3/uL; Monocyte% 10.8 % (0-10); NRBC Flagged by Analyzer 0 % (0-5); Neutrophil # 5.57 X10^3/uL (2.7-7.7); Neutrophil % 74.2 % (47-70); Platelet Count 334 K/mm3 (150-450); RBC Distribution Width CV 12.7 % (11.6-14.6); RBC Distribution Width SD 41.4 fl (35.1-43.9); Red Blood Count 3.29 M/mm3 (4.6-6.2); White Blood Count 7.5 K/mm3 (4.4-11.0)
[2024-12-05 08:15] LABS: International Normalized Ratio 1.1
[2024-12-05] MEDS: cloNIDine HCl 0.1 MG Tablet PO (09:14)
--- NOTE | 2024-12-05 10:10 | CT_ITS ---
PROCEDURE: BIOPSY/INJ OR NEEDLE PLACEMENT 12/05/2024 REASON FOR EXAM: LIVER OR LYMPH NODE TECHNIQUE: Start time 1022 hours, stop time 1055 hours. Doses: Versed 2 mg intravenous, fentanyl 50 mcg intravenous. Procedure: Following informed consent, and using standard sterile technique, a CT-guided core biopsy of a lateral right inferior hepatic lesion was performed. 2% lidocaine local anesthesia was followed by placement of an 18 gauge 10 cm CorVocet coaxial core biopsy system under CT guidance. A total of 5 core samples was successfully obtained. No complication was encountered, in the patient left the department in good condition, without significant complaint. One or more dose reduction techniques were used (e.g., Automated exposure control, adjustment of the mA and/or kV according to patient size, use of iterative reconstruction technique). RADIATION DOSE SUMMARY: DLP: 1711.23 mGycm COMPARISON: Abdomen and pelvis CT of 11/18/2024. CT/Biopsy/Inj or Needle Placement IMPRESSION: Successful right lateral inferior hepatic CT-guided core biopsy. Pathology res ults pending. Reading Location: [place] [address]
[2024-12-05] MEDS: 0.9% Normal Saline (250mL Bag) 250 ML 15 ML IV (10:15)
[2024-12-05] MEDS: Midazolam 2 MG/2 ML Syringe IV ×2 (10:22→10:44)
[2024-12-05] MEDS: fentaNYL 100 MCG/2 ML Ampul IV ×2 (10:23→10:45)
[2024-12-05] MEDS: Lidocaine 2% (20 ml mdv) 20 ML Vial INFILT (10:38)
--- NOTE | 2024-12-05 10:45 | ASPIGT_PTH ---
PATIENT: JARED PEREZ LOC: [place] U#:[id number] AGE/SX: 79/M ROOM: RE12/05/[address]: Dr. Brenda Araujo MD : [id number] BED: DIS: 12/05/2024 SPEC #: [id number] RECD: 12/05/24 11:47 STATUS: SCOTT REViral #: [id number] MATTHEW: 12/05/24 10:[address]: Brenda Araujo DEPT: SURGICAL PATHOLOGY RECD BY: Nick Shaikh ENTERED: 12/05/24 11:48 SP TYPE: ASP RAD OTHR DR: Tami Omalley, SCHEDULE ANNOUNCER-C Tissues: A - Liver, NOS Procedures: FNA Specimen Adequacy Immunohistochemical Stains Special Stain Group II Surgery Specimen Level IV Imprint (control) IHC Stain ADDITIONAL HEADER OPERATION: CT guided liver biopsy PRE-OP DIAGNOSIS: Liver mass TISSUE SUBMITTED: A- Liver mass - 18 gauge x 5 cores MICROSCOPIC DIAGNOSIS A. Liver, biopsy: * Metastatic adenocarcinoma (See note) Note: Immunohistochemical staining shows positive reactivity with CK20, CDX2 and CK19. The tumor cells are negative for CK7 and TTF1. The findings are compatible with a metastatic adenocarcinoma of colorectal origin. Clinical correlation is recommended. COMMENT The specimen is evaluated at the time of biopsy by Dr. Rider. Immediate Evaluation = 1. Adequate. 2. Adequate. MICROSCOPIC DESCRIPTION Slides are reviewed. All matched controls reacted appropriately. These tests were developed and their performance characteristics determined by [facility]. They may not have been cleared or approved by the U.S. Food and Drug Administration. The FDA has determined that such clearance or approval is not necessary. The above immunohistochemical/dualISH markers are ordered and reviewed by the Pathologist. GROSS DESCRIPTION A. Received in formalin in a container labeled with the patient's name, date of , and liver biopsy are multiple red-abarca cores of soft tissue measuring 1.7 x 0.9 x 0.3 cm in aggregate. Submitted in toto in A1. [facility] 12-05-2024 CPT:04939,[id number]
== END | disposition home or self-care (01) ==
PROVIDERS: Radiology Nuclear Radiology; PCP Nurse Practitioner Family; Referring Provider Internal Medicine Hematology & Oncology; Visit Provider Internal Medicine Hematology & Oncology
DX: Z01.812 Encounter for preprocedural laboratory examination (principal); C78.7 Secondary malignant neoplasm of liver and intrahepatic bile duct; R16.0 Hepatomegaly, not elsewhere classified
CPT/HCPCS: 47000; 36415; 77012; 85025; 85610; 85730; 88172; 88305; 88307; 88313; 88341; 88342; 99156; 99157; A4216; J2405

== ENCOUNTER → 2024-12-14 | Outpatient (CLI) | payer SELFPAY ==
--- NOTE | 2024-12-14 15:31 | RAD_ITS ---
PROCEDURE: CHEST PA AND LATERAL 12/14/2024 REASON FOR EXAM: PRE-OPERATIVE: [facility] TECHNIQUE: Frontal and lateral views of the chest. COMPARISON: 06/08/2024 FINDINGS: The lungs appear clear. Pulmonary vascularity appears within limits. No pleural effusion. The cardiac and mediastinal contours appear within limits. Status post CABG. RAD/Chest PA and Lateral IMPRESSION: No evidence of acute disease. Reading Location: [id number]
[2024-12-14 16:05] LABS: Absolute Lymphocyte Count 0.68 X10^3/uL (0.83-4.51); Absolute Neutrophil Count 5.5 X10^3/uL (2.0-7.7); Basophil# 0.03 X10^3/uL; Basophil% 0.4 % (0-1); Eosinophil# 0.03 X10^3/uL; Eosinophils% 0.4 % (0-5); Hematocrit 31.4 % (40-54); Hemoglobin 10.8 g/dL (13.0-16.5); Lymphocyte # 0.68 X10^3/ul (0.83-4.51); Lymphocyte % 9.9 % (19-41); Mean Corp Hgb Conc 34.4 g/dL (32-36); Mean Corpuscular Hgb 30.6 pg (27.0-32.0); Mean Platelet Vol. 9.6 fl (6.2-12.0); Monocyte# 0.59 X10^3/uL; Monocyte% 8.6 % (0-10); NRBC Flagged by Analyzer 0 % (0-5); Neutrophil # 5.54 X10^3/uL (2.7-7.7); Neutrophil % 80.3 % (47-70); Platelet Count 312 K/mm3 (150-450); RBC Distribution Width CV 12.8 % (11.6-14.6); RBC Distribution Width SD 41.6 fl (35.1-43.9); Red Blood Count 3.53 M/mm3 (4.6-6.2); White Blood Count 6.9 K/mm3 (4.4-11.0)
[2024-12-14 16:33] LABS: ALB/GLOB Ratio 1.4 RATIO (0.9-2.4); AST(SGOT) 24 U/L (<=37); Alanine Aminotransfer ALT/SGPT 11 U/L (<=46); Albumin, Serum 4.2 g/dL (3.4-4.8); Alkaline Phosphatase 116 U/L (40-129); Anion Gap 12 (5-15); BUN 11 mg/dL (4-19); BUN/Creat Ratio 11.3 RATIO (10-20); Calcium,Total 9.3 mg/dL (7.6-11.0); Carbon Dioxide 23.4 mmol/L (21.0-32.0); Chloride 97 mmol/L (98-108); EST Glomerular Filtration Rate 76 (>60); Ferritin 49 ng/mL (37-417); Glucose 106 mg/dL (70-99); Iron 24 ug/dL (65-175); Iron Binding Capacity,Total 314 ug/dL (250-450); Iron Binding Capacity,Unsat 290 ug/dL (228-428); Potassium 3.8 mmol/L (3.3-5.1); Protein, Total 7.3 g/dL (5.9-8.4); Sodium Level 133 mmol/L (133-145); Total Bilirubin 0.51 mg/dL (0.00-1.30)
[2024-12-16 14:08] LABS: Carcinoembryonic Antigen 47.8 ng/mL (0.0-4.7)
== END | disposition home or self-care (01) ==
PROVIDERS: PCP Nurse Practitioner Family; Referring Provider Internal Medicine Hematology & Oncology; Visit Provider Nurse Practitioner Family
DX: Z95.1 Presence of aortocoronary bypass graft (principal); C18.2 Malignant neoplasm of ascending colon; I25.118 Atherosclerotic heart disease of native coronary artery with other forms of angina pectoris; I10 Essential (primary) hypertension; I35.0 Nonrheumatic aortic (valve) stenosis; D50.0 Iron deficiency anemia secondary to blood loss (chronic)
CPT/HCPCS: 36415; 71046; 80053; 82378; 82728; 83540; 83550; 85025

== ENCOUNTER → 2025-01-14 | Day surgery (SDC) | payer SELFPAY ==
--- NOTE | 2025-01-06 08:08 | PCM.HP.BLA ---
History and Physical Date of Admission: 01/14/25 79-year-old man with a history of hypertension, coronary artery disease status post cardiac catheterization and coronary bypass surgery in 2019 with a FUNG to the LAD radial to the ramus saphenous vein graft to the first obtuse marginal branch saphenous vein graft to posterior descending artery and saphenous vein graft as a T graft of the saphenous vein graft to the posterolateral vessel. On 12/14/2024 he had a hemoglobin noted of 10.8. He follows with the GI team. He follows with oncology team for metastatic colon cancer. He was seen in cardiology office in September 2024 and underwent screening echocardiogram. Echocardiogram completed on 11/28/2024 showed LV function 65%, normal LV size, and a mean aortic valve gradient 44 mmHg. He denies chest, arm, jaw, or neck discomfort. He denies palpitations. He denies bilateral lower extremity edema. He denies claudication. He denies shortness of breath with activity, shortness of breath at rest, orthopnea, or PND. He denies chronic cough. He denies significant, sudden weight gain. He denies lightheadedness, dizziness, near-syncope, or syncope. He denies blood in urine, blood in stool, or epistaxis. He denies fever with chills. He denies myalgia. He denies fatigue. His exercise level has remained stable. 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: No Is patient in pain?: No Allergies No Known Allergies Allergy (Verified 10/17/24 14:22) Medications: See EMR Ejection fraction %: 70 Have you fallen in the past year?: No [facility] Medical History (Updated 10/17/24 @ 14:43 by Rafael Webster LANDCARE OFFICER, LANDCARE OFFICER-C) Encounter for education Pre-op testing Wears dentures Arthritis Anemia Gastric reflux Former smoker History of edema History of echocardiogram History of stress test Cardiology follow-up encounter Aortic stenosis Preop cardiovascular exam Colon cancer Overweight (BMI 25.0-29.9) Colonic mass Coronary artery disease 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 Chronic hypertension Acute alteration in mental status Neuropathy Vasectomy planned Hyponatremia TIA (transient ischemic attack) CVA (cerebral vascular accident) Hypertension History of stroke Tobacco use Benign essential hypertension Surgical History History of hemicolectomy (04/25/24) H/O vasectomy S/P right hemicolectomy History of tonsillectomy History of appendectomy 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) Family History Father Arthritis Alcohol abuseMother Alcohol abuse Liver disease Social History Smoking Status: Former smoker alcohol intake: never substance use type: does not use ROS Const Const: Positive for other (Recovering from the flu); Negative for fatigue or weakness Eyes Eyes: Negative for change in vision ENT ENT: Negative for dizziness or balance problems Cardio Chest Pain: No Palpitations: No Edema: None Muscle aches with walking: None Resp Respiratory: Negative for SOB with activity, SOB at rest or SOB orthopnea\SOB lying down GI GI: Negative nausea or heartburn : Negative for hematuria or frequent nighttime urination/ nocturia Musc Musc: Negative for balance problems Skin Skin: Negative non-healing lesions or rash Neuro Neuro: Negative for dizziness, lightheadedness, near syncope, syncope or weakness Endo Endo: Negative for fatigue Allergy Allergy/Immunology: Negative for rash Cardiology Exam Const Appearance: cooperative, healthy appearing, comfortable and no acute distress Nutritional Appearance: average body habitus and well nourished Orientation: alert, awake and oriented x3 Head Head: normal to inspection Ears: hearing grossly normal bilaterally Nose: external nose normal Face and Sinus: face symmetric Mouth: moist mucous membranes Eyes General: appearance normal, both eyes and all related structures Eyelids: eyelids normal EOM: EOM intact bilaterally Neck Neck: normal visual inspection and no JVD Carotids: normal carotid upstroke Chest Chest inspection: normal inspection of the chest, symmetric chest movement and normal respiratory effort; Negative cough Auscultation: Left: Inspiratory Wheezes and Right: Clear to Auscultation Cardio Rate: regular rate Rhythm: regular rhythm Heart sounds: S1 normal, S2 normal and murmur; Negative rub or gallop Murmur: Grade 2/6 and GUMARO loudest primary aortic area GI GI: normal to inspection Neuro General: patient alert, patient awake, patient oriented x3 and CN's II-XI intact bilaterally Skin Skin: no rashes or lesions noted Extremities Pulses: Normal: Right Posterior Tibial Pulse, Left Posterior Tibial Pulse, Right Radial Pulse and Left Radial Pulse Lower Extremity Edema: None: Bilateral Psych Psychological: normal affect Supplemental Info Supplemental Information Echocardiogram from 11/28/2024: Interpretation Summary Normal LV size. Left ventricular systolic function is normal. The left ventricular ejection fraction is 65 %. Stage 1 diastolic dysfunction. Peak aortic valve gradient 74 mmHg. Mean aortic valve gradient 44 mmHg. Severe aortic stenosis. Compared to the previous the gradients are worse. Echocardiogram 04/13/2024 Interpretation Summary The estimated ejection fraction is 70%. No evidence for diastolic dysfunction. Trivial mitral valve insufficiency. Moderate aortic stenosis. CTA Chest/Abdomen/Pelvis 04/11/2024 IMPRESSION: 1. No evidence of pulmonary artery embolus. 2. Masslike wall thickening of the ascending colon and a region measuring up to approximately 4.5 cm suspicious for malignancy. Recommend direct visualization and surgical consultation. 3. Moderate to severe stenosis of the right common and right external iliac artery secondary to densely calcified atheroma. 4. Bilateral apical scarring, left greater than right with band like opacity in the left upper lobe similar to the prior examination. 5. Low-attenuation right posterior hepatic lobe lesion is indeterminate, not distinctly assist particularly given the bowel pathology described. Metastatic disease cannot be excluded. 6. Near occlusion of the left common iliac artery secondary to densely calcified atheroma. 7. Multiple nonspecific enlarged mediastinal lymph nodes particularly subcarinal lymph nodes. 8. Colonic diverticulosis without evidence of acute diverticulitis. Stress Test 08/16/2023 Conclusion: Negative Lexiscan sestamibi myocardial perfusion study for reversible myocardial ischemia Hyperdynamic left ventricle. Patient has no symptoms to report, in particular no chest pain Assessment and Plan Assessment and Plan (1) Hx of CABG: Status: Chronic Comment: FUNG in situ mammary end to side distal LAD ? Left radial artery ascending aorta end to side ramus ? Vein graft ascending aorta obtuse marginal 1 ? Vein graft ascending aorta end to side posterior descending (PDA) ? Vein graft T-graft off SVG end to side posterolateral (PLB) Plan: Pharmacologic stress test in August 2023 was negative for ischemia. We will continue to monitor and not make any medication regimen changes. We will continue to promote risk factor and lifestyle modification. (2) Aortic stenosis: Status: Chronic Qualifiers: Cardiac valve disease etiology: nonrheumatic Qualified Code(s): I35.0 - Nonrheumatic aortic (valve) stenosis Plan: Echocardiogram on 11/28/2024 showed peak aortic valve gradient of 74 mmHg and mean aortic valve gradient of 44 mmHg. He will proceed with heart catheterization to guide further valvular treatment. Long-term valvular treatment/surgery will need to be taken into account his chronic health issues that include colon cancer and potential treatment for such. (3) Benign essential hypertension: Status: Chronic Plan: Patient's blood pressure is well-controlled. We will continue to monitor. We will not make any medication regimen changes. Plan Details Additional Comments: Thank you for allowing us to participate in the patients plan of care, if you have any questions please do not hesitate to call. Plan was reviewed with patient/family member along with red flag symptoms. Understanding was acknowledged. Questions were answered to apparent satisfaction. This note was generated using a voice recognition system and there may be incorrect words, spelling or punctuation that were not noted when reviewing the office note prior to saving. Portions of this documentation were copied and pasted from previous office visit notes to provide a cohesive continuity of the history. The note has been reviewed, edited, and updated, as necessary.
[2025-01-08 16:44] LABS: Absolute Neutrophil Count 4.3 X10^3/uL (2.0-7.7); Basophil# 0.01 X10^3/uL; Basophil% 0.2 % (0-1); Eosinophil# 0.07 X10^3/uL; Eosinophils% 1.2 % (0-5); Hematocrit 32.6 % (40-54); Hemoglobin 10.9 g/dL (13.0-16.5); Mean Corp Hgb Conc 33.4 g/dL (32-36); Mean Corpuscular Hgb 29.1 pg (27.0-32.0); Mean Corpuscular Volume 86.9 fL (80-94); Mean Platelet Vol. 10.1 fl (6.2-12.0); Monocyte# 0.69 X10^3/uL; Monocyte% 11.9 % (0-10); NRBC Flagged by Analyzer 0 % (0-5); Neutrophil # 4.33 X10^3/uL (2.7-7.7); Neutrophil % 74.5 % (47-70); Platelet Count 243 K/mm3 (150-450); RBC Distribution Width CV 12.7 % (11.6-14.6); RBC Distribution Width SD 40.5 fl (35.1-43.9); Red Blood Count 3.75 M/mm3 (4.6-6.2); White Blood Count 5.8 K/mm3 (4.4-11.0)
[2025-01-08 17:14] LABS: Anion Gap 12 (5-15); BUN 12 mg/dL (4-19); Calcium,Total 9.3 mg/dL (7.6-11.0); Carbon Dioxide 23.4 mmol/L (21.0-32.0); Chloride 96 mmol/L (98-108); Creatinine, Serum 0.97 mg/dL (0.70-1.20); EST Glomerular Filtration Rate 79 (>60); Glucose 102 mg/dL (70-99); Potassium 4.4 mmol/L (3.3-5.1); Sodium Level 131 mmol/L (133-145)
[2025-01-14 09:01] VITALS: BMI 23.5
--- NOTE | 2025-03-11 09:45 | CL.D_ITS ---
Patient Name: JARED PEREZ Study Date: 01/14/2025 Performing: Adrian Flores MD Ht: 67 inches 170.18 cm : 1945 Wt: 154.13 lbs 69.91 kg Age: 79 Gender: male BSA: 1.81 PROCEDURE(S) PERFORMED DC03-([id number])LHC/COR/LV/CABG DC04-([id number])LHC/COR/CABG CLINICAL PROFILE AND INDICATIONS Indications: Valvular Disease Heart Failure: None Stress/Imaging Stress/Image Study Performed: No CAD Presentations: Symptom unlikely to be ischemic. CONCLUSIONS Coronary artery disease with patent bypass grafts demonstrated as above to the LAD, right coronary artery, obtuse marginal branch, and ramus intermedius. RECOMMENDATIONS Consider for TAVR. DESCRIPTION OF PROCEDURE The patient arrived to the procedure lab. The risks and benefits of the procedure as well as a full description of our services here and current unavailability of surgical backup were fully explained to the patient and/or their significant other prior to the catheterization. The Timeout was completed, verifying the correct patient and procedure. The patient's procedural site was prepped and draped in the usual fashion. Local anesthetic was given subcutaneously to right groin region with Lidocaine 2%. Using a modified Seldinger technique, arterial access was obtained via the right femoral artery, a 5Fr sheath was inserted. Left Coronary Artery selective angiography was performed in multiple views using a 5 Fr. JL4 catheter. Right Coronary Artery selective angiography was then performed in multiple views using a 5 Fr. 3DRC (Scott) catheter. Saphenous Vein graft to the OM 1 selective angiography was performed in multiple views using a 5 Fr. 3DRC (Scott) catheter. Left internal mammary artery graft to the LAD selective angiography was performed in multiple views using a 5 Fr. IM catheter. Saphenous Vein t-graft to the RPD AND RPL selective angiography was performed in multiple views using a 5 Fr. AR MOD catheter. RADIAL ARTERY graft to the Ramus selective angiography was performed in multiple views using a 5 Fr. 3DRC (Scott) catheter.The arterial sheath was pulled and manual compression applied until hemostasis is achieved. CORONARY ANGIOGRAPHY DOMINANCE: Right Dominant LEFT HEART ASSESSMENT Left Ventricular Ejection Fraction: by Echo 60 % Normal Left Ventricular systolic function The peak mean gradient across the aortic valve is 74/44 mmHg respectively. LEFT MAIN: Moderate calcification, Mild luminal irregularities less than 30% LEFT ANTERIOR DESCENDING ARTERY: MID LAD: is occluded CIRCUMFLEX ARTERY: Medium size vessel with a first obtuse marginal branch with 80% stenosis noted RAMUS: Long vessel with proximal 80% stenosis present RIGHT CORONARY ARTERY: PROX RCA: is occluded GRAFTS: FUNG graft to the Mid LAD is patent Saphenous Vein graft to the 1st OM is patent Radial graft to the 1st OM This vessel is really grafted to the ramus intermedius and has 3 side branches and the vessel is noted to be patent. Sequential graft to the Sequential graft to the posterior descending artery and posterolateral vessel was noted to be patent VALVE FINDINGS: Aortic Valve Stenosis - severe COMPLICATIONS PROCEDURE MEDICATIONS Versed 1 mg IV Fentanyl 50 mcg IV Versed 1 mg IV Oxygen: 2 L/min via nasal cannula Aspirin (325mg) 1 Tabs PO @ 01/14/2025 09:09:10 SUMMARY OF HEMODYNAMIC DATA Time AIR REST ECG 08:57:10 AO 170/54 (90) SA 09:52:32 AO 130/46 (75) 10:00:34 Signed By Adrian Flores MD On 01/14/2025 10:25:49 Adrian Flores MD
== END | disposition home or self-care (01) ==
PROVIDERS: Nurse Practitioner Family; PCP Nurse Practitioner Family; Referring Provider Internal Medicine Cardiovascular Disease; Visit Provider Internal Medicine Cardiovascular Disease
DX: I25.10 Atherosclerotic heart disease of native coronary artery without angina pectoris (principal); C18.9 Malignant neoplasm of colon, unspecified; I10 Essential (primary) hypertension; I35.0 Nonrheumatic aortic (valve) stenosis; Z95.1 Presence of aortocoronary bypass graft; Z90.49 Acquired absence of other specified parts of digestive tract; Z86.73 Personal history of transient ischemic attack (TIA), and cerebral infarction without residual deficits; Z87.891 Personal history of nicotine dependence
CPT/HCPCS: 36415; 80048; 85025; 93455; 99152; 99153; C1894; Q9967; C1769

== ENCOUNTER → 2025-02-07 | Outpatient (CLI) | payer SELFPAY ==
[2025-02-07 15:33] LABS: Color, Urine Yellow (Yellow); Glucose, Dipstick Normal (Normal); Ketone-Dipstick 5 mg/dl (Negative); Leukocyte Esterase-Dipstick Negative /ul (Negative); Nitrite-Dipstick Negative (Negative); Occult Blood-Urine Negative /ul (Negative); Protein-Dipstick 30 mg/dl (Negative); Specific Gravity, Urine 1.015 (1.002-1.030)
[2025-02-07 15:41] LABS: Urine Bilirubin Dipstick 1 mg/dL (Negative)
== END | disposition home or self-care (01) ==
LOC: LABSPEC 13:33
PROVIDERS: PCP Nurse Practitioner Family; Visit Provider Family Medicine
DX: R30.0 Dysuria (principal)
CPT/HCPCS: 81002; 87086

== ENCOUNTER 2025-02-10 21:34 | Inpatient (IN) | payer MEDICARE, SELFPAY ==
[2025-02-10 21:34] VITALS: BP 178/93; PULSE 102; RESP 16; TEMP 37.1; O2SAT 99; BMI 24.9
--- NOTE | 2025-02-10 22:46 | RAD_ITS ---
PROCEDURE: CHEST 1 VIEW (PORTABLE) 02/10/2025 REASON FOR EXAM: DYSPNEA TECHNIQUE: Frontal view of the chest. COMPARISON: 12/14/2024 FINDINGS: Rotated patient. Normal heart size. Status post CABG. Elevated right hemidiaphragm. No consolidation, effusion, or pneumothorax. Granulomas. RAD/Chest 1 View (Portable) IMPRESSION: No acute chest findings. Reading Location: [place] [id number]
--- NOTE | 2025-02-10 22:46 | RAD_ITS ---
PROCEDURE: CHEST 1 VIEW (PORTABLE) 02/10/2025 REASON FOR EXAM: DYSPNEA TECHNIQUE: Frontal view of the chest. COMPARISON: 12/14/2024 FINDINGS: Rotated patient. Normal heart size. Status post CABG. Elevated right hemidiaphragm. No consolidation, effusion, or pneumothorax. Granulomas. RAD/Chest 1 View (Portable) IMPRESSION: No acute chest findings. Reading Location: [place] [id number]
--- OUTSIDE RECORDS SUMMARY | 2025-02-10 22:59 | XMS RPT_ITS | CCD ---
Author Organization [facility] Care Team Providers Care Continuous Absorption Process Operator Name Role Phone Neville Islas DO Primary Care Provider Dr. Neville Islas Primary Care Provider [phone] Dr. Jerry Hightower Emergency Provider [phone] Dr. Darrel Carpenter Admit Provider Unavailabl e Dr. Darrle Carpenter Attending Provider Unavail able Dr. Darrel Carpenter Other Provider Unavailabl e Dr. Adrian Flores Attending Provider [phone] Darrel Carpenter Referring Provider Unavail able Dr. Stevie Umanzor Attending Provider Dr. Lucy Polanco Other Provider Dr. Karli Cruz Attending Provider Dr. Lucy Polanco Attending Provider Darrel Pringle MD Unavailable Unavailable Shahram CITY ASSESSOR-C, Mariela Primary Care Provider Shahram CITY ASSESSOR-C, Mariela Referring Provider Dr. Papi Hernandez MD Attending Provider Rafa CITY ASSESSOR-C, Selam Attending Provider Shahram CITY ASSESSOR-C, Mariela Attending Provider Darin CITY ASSESSOR-C, Malinda Morillo Attending Provider Darin CITY ASSESSOR-C, Malinda Morillo Referring Provider Dr. Papi Hernandez MD Referring Provider Dr. Jerry Hightower DO Emergency Provider Dr. Jerry Hightower DO Attending Provider Shahram CITY ASSESSOR-C, Gould Primary Care Provider Shahram CITY ASSESSOR-C, Mariela Referring Provider Dr. Papi Hernandez MD Attending Provider Dr. Harrison Linares DO Emergency Provider de Tommy , Dr. Rojo Admit Provider Unavail able de Tommy DO, Dr. Rojo Attending Provider Unav ailable de Tommy DO, Dr. Rojo Other Provider Unavail able Juany FARLEY, Dr. Hubbard Attending Provider Juany FARLEY, Dr. Hubbard Other Provider Friend , Dr. Chapman Attending Provider Shahram CITY ASSESSOR-C, Gould Primary Care Provider Shahram CITY ASSESSOR-C, Mariela Referring Provider Juany FARLEY, Dr. Hubbard Referring Provider Mark DAVIS, Dr. Campbell Attending Provider Mark DAVIS, Dr. Campbell Referring Provider Dr. Lazaro Sharp MD Emergency Provider Raciel DAVIS, Dr. Kelvin Vallejo Admit Provider Raciel DAVIS, Dr. Kelvin Vallejo Attending Provider Raciel DAVIS, Dr. Kelvin Vallejo Referring Provider Raciel DAVIS, Dr. Kelvin Vallejo Other Provider Dr. Neville Jang DO Attending Provider Dr. Kelvin Schrader MD Attending Provider Dr. Neville Jang DO Other Provider Shahram CITY ASSESSOR-C, Gould Primary Care Provider Shahram CITY ASSESSOR-C, Mariela Referring Provider Dr. Papi Hernandez MD Attending Provider Shahram CITY ASSESSOR-C, Mariela Attending Provider Roof CITY ASSESSOR-C, Malinda Morillo Attending Provider Roof CITY ASSESSOR-C, Malinda Morillo Referring Provider Dr. Papi Hernandez MD Referring Provider Campbell FARLEY, Dr. Edwards Attending Provider Campbell DO, Dr. Edwards Emergency Provider Andhalina FARLEY, Dr. Terry Emergency Provider de Tommy FARLEY, Dr. Rojo Admit Provider Unavail able de Tommy FARLEY, Dr. Rojo Other Provider Unavail able Juany FARLEY, Dr. Hubbard Attending Provider Juany FARLEY, Dr. Hubbard Referring Provider Juany FARLEY, Dr. Hubbard Other Provider Nirmala FARLEY, Dr. Chapman Attending Provider Mark DAVIS, Dr. Campbell Attending Provider Mark DAVIS, Dr. Campbell Referring Provider Aron DAVIS, Dr. Willis Emergency Provider Raciel DAVIS, Dr. Kelvin Vallejo Admit Provider Raciel DAVIS, Dr. Kelvin Vallejo Referring Provider Raciel DAVIS, Dr. Kelvin Vallejo Other Provider Dr. Neville Jang DO Attending Provider Dr. Kelvin Schrader MD Attending Provider Dr. Neville Jang DO Other Provider Dr. Brenda Araujo MD Attending Provider Dr. Brenda Araujo MD Referring Provider Shahram CITY ASSESSOR-C, Mariela Primary Care Provider Shahram CITY ASSESSOR-C, Mariela Referring Provider Dr. Papi Hernandez MD Attending Provider Gayel DAVIS, Dr. Gutierrez Attending Provider Gayle DAVIS, Dr. Gutierrez Referring Provider Shahram CITY ASSESSOR-C, Gould Primary Care Provider Shahram CITY ASSESSOR-C, Gould Referring Provider Mary DAVIS, Dr. Turpin Attending Provider [phone] Shahram CITY ASSESSOR-C, Gould Primary Care Provider Neville Islas DO Primary Care Provider Darrel Pringle Attending Unavailable Julissa Yap Referring Unavailable Darrel Pringle Attending Unavailable Darrel Pringle Referring Unavailable Darrel Pringle Attending Unavailable Julissa Yap Referring Unavailable Darrel Pringle Attending Unavailable Julissa Yap Referring Unavailable Darrel Pringle Attending Unavailable Darrel Pringle Referring Unavailable Darrel Pringle Attending Unavailable Darrel Pringle Referring Unavailable Mark DAVIS, Dr. Campbell Other Provider [phone] Jerry Hightower Attending Unavailable Shahram, Mariela Primary Care Unavailable Shahram, Mariela Referring Unavailable Shahram, Mariela Attending Unavailable Shahram, Gould Primary Care Unavailable Shahram, Gould Primary Care Unavailable Darrel Carpenter Consulting Unavailable Darrel Carpenter Admitting Unavailable Stevie Harrington Attending Unavailable Darrel Carpenter Admitting Unavailable Darrel Carpenter Consulting Unavailable Shahram, Mariela Primary Care Unavailable Stevie Harrington Attending Unavailable Santana Francois Consulting Unavailable Shahram, Mariela Referring Unavailable Shahram, Gould Primary Care Unavailable Papi Hernandez Attending Unavailable Shahram, Mariela Referring Unavailable Shahram, Gould Primary Care Unavailable Papi Hernandez Attending Unavailable Du Thomsa Attending Unavailable Shahram, Gould Primary Care Unavailable Du Thomas Referring Unavailable Du Thomas Admitting Unavailable Keo Burgos Consulting Unavailable Du Thomas Consulting Unavailable Shahram, Mariela Referring Unavailable Shahram, Gould Primary Care Unavailable Selam Craig NP Attending Unavailable Roshan, Neville Primary Care Unavailable Neville Islas Attending Unavailable Roshan, Neville Referring Unavailable Shahram, Mariela Primary Care Unavailable Roof CITY ASSESSOR, Malinda H Referring Unavailable Roof CITY ASSESSOR, Malinda H Attending Unavailable Roof CITY ASSESSOR, Malinda H Attending Unavailable Roof CITY ASSESSOR, Malinda H Referring Unavailable Shahram, Mariela Primary Care Unavailable Shahram, Mariela Primary Care Unavailable Papi Hernandez Attending Unavailable Praeve, Papi Referring Unavailable Isckarus, Mansour Referring Unavailable Isckarus, Mansour Attending Unavailable Shahram, Mariela Primary Care Unavailable Isckarus, Mansour Referring Unavailable Isckarus, Mansour Attending Unavailable Shahram, Mariela Primary Care Unavailable Mark, [place] Attending Unavailable Mark, Adrian Referring Unavailable Shahram, Mariela Primary Care Unavailable Shahram, Mariela Attending Unavailable Shahram, Mariela Referring Unavailable Shahram, Mariela Primary Care Unavailable Mark, [place] Attending Unavailable Mark, [place] Referring Unavailable Shahram, Mariela Primary Care Unavailable Mark, [place] Attending Unavailable Shahram, Mariela Primary Care Unavailable Shahram, Mariela Primary Care Unavailable Sunny Mancia Referring Unavailable Sunny Mancia Attending Unavailable Asunciononis, Kelvin F Referring Unavailable Kotsonis, Kelvin F Admitting Unavailable Kotsonis, Kelvin F Consulting Unavailable Neville Jang Attending Unavailable Shahram, Mariela Primary Care Unavailable Shahram, Mariela Primary Care Unavailable Danette Cheng Attending Unavailable Prosper, Danette Referring Unavailable Len Staton Attending Unavailabl e Shahram, Mariela Primary Care Unavailable Du Thomas Attending Unavailable Shahram, Mariela Primary Care Unavailable Du Thomas Admitting Unavailable Du Thomas Referring Unavailable Keo Burgos Consulting Unavailable Du Thomas Consulting Unavailable Eliz Mitchell Attending Unavailable Shahram, Mariela Referring Unavailable Shahram, Mariela Primary Care Unavailable Papi Hernandez Attending Unavailable Shahram, Mariela Primary Care Unavailable Shahram, Mariela Referring Unavailable Sunny Mancia Attending Unavailable Lucy Polanco Admitting Unavailable Lucy Polanco Consulting Unavailable Shahram, Mariela Primary Care Unavailable Mike Story Attending Unavailable Mike Story Consulting Unavailable Darrel Carpenter Admitting Unavailable Darrel Carpenter Consulting Unavailable Shahram, Mariela Primary Care Unavailable Stevie Harrington Attending Unavailable Santana Francois Consulting Unavailable Juany, Stevei Consulting Unavailable Du Thomas Attending Unavailable Jopperi, Stevie Referring Unavailable Friend, Ari Attending Unavailable Lorraine eMlendez Attending Unavailable Du Thomas Attending Unavailable Shahram, Mariela Primary Care Unavailable BorDu horowitz Consulting Unavailable Brown, Sunny Referring Unavailable Brown, Sunny Consulting Unavailable Shahram, Mariela Primary Care Unavailable Brown, Sunny Referring Unavailable Brown, Sunny Attending Unavailable Brown, Sunny Consulting Unavailable Mark, Adrian Consulting Unavailable Mark Adrian Attending Unavailable Mark, [place] Referring Unavailable Shahram, Mariela Primary Care Unavailable Darrel Carpenter Attending Unavailable Kelvin Schrader Referring Unavailable Kelvin Schrdaer Admitting Unavailable Neville Jang Attending Unavailable Kelvin Schrader Consulting Unavailable Shahram, Mariela Primary Care Unavailable Neville Jang Consulting Unavailable Lucy Polanco Attending Unavailable Lucy Polanco Admitting Unavailable Lucy Polanco Consulting Unavailable Shahram, Mariela Primary Care Unavailable Du Thomas Attending Unavailable Shahram, Mariela Primary Care Unavailable Du Thomas Admitting Unavailable Du Thomas Referring Unavailable Keo Burgos Consulting Unavailable Lucy Polanco Admitting Unavailable Shahram, Mariela Primary Care Unavailable Lucy Polanco Consulting Unavailable Mike Story Attending Unavailable Shahram, Mariela Primary Care Unavailable Papi Hernandez Referring Unavailable Papi Hernandez Attending Unavailable Shahram, Mariela Primary Care Unavailable Papi Hernandez Attending Unavailable Papi Hernandez Referring Unavailable Du Thomas Consulting Unavailable Shahram, Mariela Primary Care Unavailable Brown, Sunny Referring Unavailable Brown, Sunny Attending Unavailable Shahram, Mariela Primary Care Unavailable Darrel Carpenter Consulting Unavailable Darrel Carpenter Attending Unavailable Darrel Carpenter Admitting Unavailable Juany, Stevie Consulting Unavailable Shahram, Mariela Attending Unavailable Shahram, Mariela Primary Care Unavailable Friend, Ari Attending Unavailable Audeliaeri, Stevie Referring Unavailable Juany Stevie Attending Unavailable Kelvin Schrader Attending Unavailable Shahram, Mariela Referring Unavailable Brenda Araujo Attending Unavailable Shahram, Mariela Primary Care Unavailable Friend, Ari Attending Unavailable Shahram, Mariela Referring Unavailable Shahram, Mariela Primary Care Unavailable Lisandra Lazcano Attending Unavailable Neville Islas Referring Unavailable Roshan Neville Primary Care Unavailable Shahram, Mariela Referring Unavailable Shahram, Mariela Primary Care Unavailable Papi Hernandez Attending Unavailable Du Thomas Attending Unavailable Shahram, Mariela Referring Unavailable Shahram, Mariela Primary Care Unavailable Shahram, Mariela Referring Unavailable Shahram, Mariela Primary Care Unavailable Du Thomas Attending Unavailable Shahram, Mariela Referring Unavailable Shahram, Mariela Primary Care Unavailable Darin CITY ASSESSOR, Malinda Morillo Attending Unavailable Shahram, Mariela Referring Unavailable Shahram, Mariela Primary Care Unavailable Adrian Flores Attending Unavailable Du Thomas Attending Unavailable Shahram, Mariela Referring Unavailable Shahram, Mariela Primary Care Unavailable FriendAri Attending Unavailable Friend, Ari Attending Unavailable Shahram, Mariela Primary Care Unavailable Stevie Harrington Referring Unavailable Shahram, Mariela Primary Care Unavailable Shahram, Mariela Referring Unavailable Papi Hernandez Attending Unavailable Shahram, Mariela Referring Unavailable Brenda Araujo Attending Unavailable Shahram, Mariela Primary Care Unavailable Roof CITY ASSESSOR, Malinda Morillo Attending Unavailable Brenda Araujo Referring Unavailable Shahram, Mariela Primary Care Unavailable Shahram, Mariela Primary Care Unavailable Jerry Hightower Attending Unavailable Du Thomas Attending Unavailable Shahram, Mariela Referring Unavailable Shahram, Mariela Primary Care Unavailable Sunny Mancia Consulting Unavailable Allergies Allergy Classification Reported Allergen(s) Allergy Type Date of Onset Reaction(s) Facility (3 sources) fentaNYL Drug Allergy 5 Low blood pressure [facility] (1 source) cloNIDine Drug Allergy 4 [facility] Repository (1 source) fentaNYL Drug Allergy 5 [facility] Rep[facility] (1 source) Wheat preparation Drug Allergy 4 [facility] Repository Medications Current Medications Medication Drug Class(es) Dates Sig (Normalized) Sig (Original) 4 ml bevacizumab 25 mg/ml injection (1 source) Vascular Endothelial Growth Factor Inhibitor Start: 01-05-2023 Avastin 25 mg/mL intravenous solution Direct Patient Administration Only - Active cloNIDine hydrochloride 0.1 mg oral tablet (12 sources) Central alpha-2 Adrenergic Agonist Start: 06-08-2024 ferrous sulfate 325 mg oral tablet (16 sources) Start: 06-10-2024 take 1 tablet by mouth once daily Ferrous Sulfate (Iron (Ferrous Sulfate)) 325 mg (65 mg iron) tablet Active 325 mg PO DAILY 60 June 10, 2024 3:15pm Start: 05-16-2024 End: 06-10-2024 take 1 tablet by mouth twice daily Ferrous Sulfate (Iron (Ferrous Sulfate)) 325 mg (65 mg iron) tablet Discontinued 325 mg PO TWICE A DAY 60 May 16, 2024 12:00am June 10, 2024 3:15pm metoprolol tartrate 50 mg or al tablet (20 sources) beta-Adrenergic Arianna Start: 10-17-2024 Start: 04-23-2024 End: 10-17-2024 Start: 04-23-2024 End: 10-17-2024 take 1 tablet by mouth once daily Metoprolol Tartrate 25 mg tablet Discontinued 25 mg PO DAILY June 19, 2024 1:00am October 17, 2024 2:25pm Start: 07-23-2019 take 1.5 tablets by mouth twice daily metoprolol tartrate, short acting, (LOPRESSOR) 25 mg tablet Take 1.5 tablets by mouth twice daily. 30 tablet 1 07/23/2019 Active Start: 03-06-2018 End: 04-11-2024 Start: 03-06-2018 End: 04-11-2024 Metoprolol Tartrate 50 MG ta blet Discontinued 25 mg PO TWICE A DAY March 06, 2018 12:00am April 11, 2024 10:18pm Start: 03-06-2018 take 25 mg by mouth twice shital y Metoprolol Tartrate Active 25 MG PO TWICE A DAY March 06, 2018 12:00am take 1 tablet by sabra once daily metoprolol succinate ER 25 mg tablet,extended release 24 hr take 1 tablet by oral route every day 25 MG - Active Comment on above: Take 1.5 tablets by mouth twice daily. oxyCODONE hydrochloride 5 mg oral tablet (19 sources) Opioid Agonist Start: 10-24-2024 End: 01-15-2025 Start: 10-24-2024 End: 11-28-2024 take 1 tablet by mouth every six hours as needed for pain Oxycodone 5 mg tablet Discontinued 5 mg PO EVERY 6 HOURS as needed for pain 28 7 October 24, 2024 November 28, 2024 11:07am (8 sources) Start: 06-10-2024 Start: 05-16-2024 End: 06-10-2024 Completed/Discontinued Medications Medication Drug Class(es) Dates Sig (Normalized) Sig (Original) acetaminophen 500 mg oral tablet (12 sources) Start: 05-01-2024 End: 05-16-2024 amLODIPine 5 mg oral tablet (20 sources) Dihydropyridine Calcium Channel Arianna Start: 07-23-2019 take 0.5 tablet by mouth once daily amLODIPine (NORVASC) 10 mg tablet Take 0.5 tablets by mouth once daily. 30 tablet 1 07/23/2019 Active Start: 03-06-2018 End: 05-16-2024 Start: 03-06-2018 End: 05-16-2024 Start: 03-06-2018 End: 05-16-2024 Start: 03-06-2018 End: 05-16-2024 take 1 tablet by mouth twice daily Amlodipine 5 mg tablet Discontinued 5 mg PO TWICE A DAY 60 April 25, 2024 12:00am May 16, 2024 12:55pm Comment on above: Take 0.5 tablets by mouth once daily. aspirin 81 mg delayed release oral tablet (20 sources) Platelet Aggregation Inhibitor, Nonsteroidal Anti-inflammatory Drug Start: 11-18-2016 End: 04-25-2024 Comment on above: Take 1 tablet by sabra th once daily. cilostazol 50 mg oral tablet (20 sources) Phosphodiesterase 3 Inhibitor Start: 04-23-2024 End: 04-25-2024 Start: 02-16-2024 End: 04-11-2024 0.4 ml enoxaparin sodium 100 mg/ml prefilled syringe (12 sources) Low Molecular Weight Heparin Start: 05-01-2024 End: 05-16-2024 Start: 05-01-2024 End: 05-16-2024 Enoxaparin 40 mg/0.4 mL Syri nge Discontinued 40 mg SC DAILY 2.8 7 May 01, 2024 12:00am May 16, 2024 12:54pm lisinopril 20 mg oral tablet (20 sources) Angiotensin Converting Enzyme Inhibitor Start: 11-18-2016 End: 08-15-2023 Start: 11-18-2016 End: 08-15-2023 take 5 mg by mouth once daily Lisinopril (Zestril) 20 MG tablet Discontinued 5 mg PO DAILY March 06, 2018 2:35pm August 15, 2023 7:15pm Start: 10-31-2014 End: 11-18-2016 magnesium oxide 400 mg oral tablet (20 sources) Start: 04-23-2024 End: 04-25-2024 metroNIDAZOLE 500 mg oral tablet (20 sources) Nitroimidazole Antimicrobial Start: 04-20-2024 End: 05-01-2024 Metronidazole 500 mg tablet Discontinued 500 mg PO .COMPLEX April 20, 2024 2:08pm May 01, 2024 9:15am 500 mg orally 500 mg orally At 1:00pm take 2 metronidazole tablets; at 3:00pm take 2 metronidazole tablets; at 11:00pm take 2 metronidazole tablets; Start: 04-20-2024 End: 05-01-2024 Start: 04-20-2024 End: 04-20-2024 Metronidazole 500 mg tablet Discontinued 500 mg PO .COMPLEX April 20, 2024 12:00am April 20, 2024 2:09pm 500 mg orally 500 mg orally At 1:00pm take metronidazole tablets; at 3:00pm take 2 metronidazole tablets; at 11:00pm take 2 metronidazole tablets; neomycin sulfate 500 mg oral tablet (12 sources) Aminoglycoside Antibacterial Start: 04-20-2024 End: 05-01-2024 Start: 04-20-2024 End: 05-01-2024 Neomycin 500 mg tablet Disco ntinued 500 mg PO .COMPLEX April 20, 2024 12:00am May 01, 2024 9:15am 500 mg orally At 1:00pm take 2 neomycin tablets; at 3:00pm take 2 neomycin tablets; at 11:00pm take 2 neomycin tablets; potassium chloride 10 meq ex tended release oral tablet (20 sources) Start: 06-08-2024 End: 07-04-2024 Start: 04-23-2024 End: 04-25-2024 take 1 capsule by [facility] twice daily at mealtime potassium chloride ER 8 mEq capsule,extended release take 1 capsule by oral route 2 times every day with food 8 MEQ - Active simethicone 80 mg chewable t ablet (8 sources) Start: 11-07-2024 End: 11-18-2024 Start: 11-07-2024 End: 11-18-2024 take 1 tablet by mouth at bedtime Simethicone 80 mg Tablet,Chewable Discontinued 80 mg PO AFTER MEALS AND AT BEDTIME 0 November 07, 2024 12:00am November 18, 2024 1:13pm sodium chloride 1000 mg oral tablet (12 sources) Start: 05-01-2024 End: 06-08-2024 Problems Active Problems Problem Classification Problem Date Documented Date Episodic/Chronic Abdominal pain (20 sources) Right upper quadrant pain; Translations: [Right upper quadrant pain] Onset: 010 10-03-2009 Episodic Blindness and vision defects (13 sources) Visual disturbance; Translations: [Unspecified visual disturbance] 12-11-2023 Episodic Cancer of colon (20 sources) Malignant neoplasm of colon, unspecified; Translations: [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] Onset: 024 08-08-2024 Chronic Comment on above: Right colon cancer, s/p right hemicolectomy. Pathologic stage pT4 PN2b. Prognostic stage IIIC.CT chest, abdomen and pelvis shows multiple nonspecific mediastinal lymph nodes, hypodensity in the liver.PET/CT on 05/29/2024 showed Hypermetabolic activities in subcarinal node, R hilar node, liver and LE/GEJ area. Biopsy of esophagus and stomach were negative. Biopsy of mediastinal nodes were negative.Adjuvant chemotherapy was suggested.Comes for follow up, changed his mind about adjuvant chemotherapy. Wants to do observation.. Patient is an 79-yea r-old male with history of CAD and PAD who presents for outpatient follow-up of recent occult anemia and workup with colonoscopy that ultimately found evidence of a hepatic flexure mass. 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 CT imaging of the chest, abdomen, and pelvis was obtained for evaluation of patient's vasculature on intake but did not show any evidence of metastasis. I discussed with patient and spouse plans to proceed with ERAS laparoscopic right hemicolectomy next week. A diagram of the relevant anatomy was made to facilitate understanding. Further, I shared that I held a discussion with anesthesia prior to today's visit and they remain concern for coronary insufficiency and strongly urged me to pursue cardiac evaluation. A special request has been made to the heart group but no definitive plans have been set. Will plan to proceed with scheduling colectomy so things are in place to move forward if we are permitted given that patient does seem to be anemic from this issue.Update 05/10/2024: Patient's colon cancer summary following processing of his surgical specimen shows a rather aggressive cancer that is poorly differentiated and with significant spread to his mesenteric lymph nodes (15 out of 16). Final pathologic staging was T4, N2, MX. It is of note that patient had CT imaging of the liver that showed an equivocal lesion of the liver that likely will need further dedicated imaging. With this pathology I shared with Mr. Raymond that he would be considered for adjuvant chemotherapy and require a port. I gave a brief overview of this process as well as the need to refer to oncology. Mr. Raymond makes it clear that his goal is to improve his longevity as he would like to be around for his .Update 06/07/2024: Unfortunately patient has a number of areas concerning for metastasis or consistent with viable neoplasm on recent PET exam. Included in this is an area of avidity at his gastroesophageal junction. I agree with oncology that this should be accessible via typical esophagogastroduodenoscopy and described this procedure to the patient as well as the need to be medically optimized in order to obtain a biopsy. He goes on to share that there has been some concern with this portion of his digestion for some time but does deny any symptoms that would be consistent with partial obstruction/mass effect. Unfortunately, based on his blood pressure today I do not believe he would be fit to undergo a procedure and have thus directed him to the ER to try to initiate medical optimization that may ultimately need to be completed on the outpatient side. Right colon cancer, s/p right hemicolectomy. Pathologic stage pT4 PN2b. Prognostic stage IIIC.CT chest, abdomen and pelvis shows multiple nonspecific mediastinal lymph nodes, hypodensity in the liver.PET/CT on 05/29/2024 showed Hypermetabolic activities in subcarinal node, R hilar node, liver and LE/GEJ area. Biopsy of esophagus and stomach were negative. Biopsy of mediastinal nodes were negative.Declined chemotherapy was suggested.Comes for follow up, CT on 10/24/2024 shows metastatic disease in peritoneum and Liver. Does not chemotherapy.Daughter wants him to try Ivermectin. Offered that they get a second opinion. Cataract (10 sources) Bilateral age-related cataract; Translations: [Age-related nuclear cataract, bilateral] Onset: 023 09-01-2022 Chronic Coronary atherosclerosis and other heart disease (16 sources) Coronary atherosclerosis; Translations: [Atherosclerotic heart disease of [place] coronary artery without angina pectoris] Onset: 019 07-23-2019 Chronic Coronary atherosclerosis and other heart disease (2 sources) Presence of aortocoronary bypass graft; Translations: [Presence of aortocoronary bypass graft] Onset: Episodic Crushing injury or internal injury (12 sources) Liver hematoma; Translations: [Contusion of liver, initial encounter] 06-08-2024 Episodic Deficiency and other anemia (18 sources) Anemia due to blood loss; Translations: [Iron deficiency anemia secondary to blood loss (chronic)] 11-18-2024 Chronic Deficiency and other anemia (1 source) Iron deficiency anemia secondary to blood loss (chronic); Translations: [Iron deficiency anemia secondary to blood loss (chronic)] Onset: Chronic Deficiency and other anemia (20 sources) Anemia; Translations: [Anemia, unspecified] 04-23-2024 Episodic Deficiency and other anemia (2 sources) Anemia, unspecified; Translations: [Anemia, unspecified] Onset: Episodic Diverticulosis and diverticulitis (8 sources) Diverticular disease; Translations: [Diverticulosis of intestine, part unspecified, without perforation or abscess without bleeding] 11-06-2024 Chronic Essential hypertension (20 sources) Hypertensive disorder; Translations: [Essential (primary) hypertension] Onset: 010 07-23-2019 Chronic Comment on above: Patient with signifi cant blood pressure upon today's visit of greater than 200 mmHg systolic. Asymptomatic. This was rechecked after our visit and down to 170 mmHg. Patient severely hyp ertensive with initial blood pressure 220/80 mmHg. This is higher than any pressure recorded in the last year. Patient is asymptomatic. Despite trying to wait some time and allow patient to relax his pressure remains elevated. Given his risk for stroke and his need for upcoming procedures I did recommend presenting to the ER to try to initiate optimization of this part of his care. Patient was initially reluctant but was open to my reasoning and obliged my request to present to the ER. A phone call was made to emergency medicine to notify of patient's presentation. Fluid and electrolyte disorders (20 sources) Hyponatremia; Translations: [Hypo-osmolality and hyponatremia] Onset: 11-16-2016 Episodic Gastrointestinal hemorrhage (20 sources) Acute lower gastrointestinal hemorrhage; Translations: [Gastrointestinal hemorrhage, unspecified] Onset: 04-23-2024 Episodic Heart valve disorders (20 sources) Aortic valve stenosis; Translations: [Nonrheumatic aortic (valve) stenosis] Onset: 10-17-2024 Chronic Hypertension with complications and secondary hypertension (14 sources) Hypertensive emergency; Translations: [Hypertensive emergency] 08-23-2023 Chronic Lymphadenitis (20 sources) Mediastinal lymphadenopathy; Translations: [Localized enlarged lymph nodes] Onset: 06-12-2024 Episodic Other circulatory disease (17 sources) History of cerebrovascular accident; Translations: [Personal history of transient ischemic attack (TIA), and cerebral infarction without residual deficits] Onset: 019 07-23-2019 Episodic Other gastrointestinal disorders (2 sources) Burping; Translations: [Eructation] 01-13-2010 Episodic Other gastrointestinal disorders (2 sources) Abdominal bloating; Translations: [Abdominal distension (gaseous)] 01-13-2010 Episodic Other gastrointestinal disorders (12 sources) Mass of colon; Translations: [Other specified diseases of intestine] 05-10-2024 Episodic Other gastrointestinal disorders (7 sources) Hemorrhagic diarrhea ; Translations: [Diarrhea, unspecified] 11-18-2024 Episodic Other gastrointestinal disorders (1 source) Other fecal abnormalities; Translations: [Other fecal abnormalities] Onset: Episodic Other nutritional; endocrine; and metabolic disorders (12 sources) Body mass index 25-29 - overweight; Translations: [Overweight] 04-23-2024 Episodic Other screening for suspected conditions (not mental disorders or infectious disease) (12 sources) Imaging result abnormal; Translations: [Abnormal findings on diagnostic imaging of other specified body structures] 05-31-2024 Chronic Peripheral and visceral atherosclerosis (14 sources) Atherosclerosis of artery of lower limb; Translations: [Atherosclerosis of yurok arteries of extremities with intermittent claudication, bilateral legs] Onset: 024 04-23-2024 Chronic Comment on above: Arterial study 4: R LEONARD 0.84 with biphasic waveforms; L LEONARD 0.68 with bi/monophasic waveformsCTA 02/03/24: Residual codes; unclassified (15 sources) Tobacco use and exposure - finding; Translations: [Tobacco use] 08-16-2013 Episodic Residual codes; unclassified (14 sources) Altered mental status; Translations: [Altered mental status, unspecified] 08-15-2023 Episodic Residual codes; unclassified (1 source) Altered mental status, unspecified; Translations: [Altered mental status] 08-15-2023 Episodic Residual codes; unclassified (12 sources) Past history of procedure; Translations: [Other specified postprocedural states] 06-08-2024 Episodic Residual codes; unclassified (12 sources) History of partial resection of colon; Translations: [Acquired absence of other specified parts of digestive tract] 05-10-2024 Episodic Comment on above: 04/28/24.Patient has recovered well and is well-healing. Overall I have a few concerns, but I would like further follow-up of his reports of some persistent hematochezia. Between this report and some evident pallor with his complexion I want to be sure that his anemia is improving. It is to be noted that patient was continued on DVT prophylaxis with subcutaneous Lovenox and has now completed this regimen. 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] 11-28-2024 Chronic Secondary malignancies (16 sources) Regional lymph node metastasis present ; Translations: [Secondary and unspecified malignant neoplasm of lymph node, unspecified] 11-28-2024 Chronic Secondary malignancies (1 source) Secondary and unspecified malignant neoplasm of lymph node, unspecified; Translations: [Secondary and unspecified malignant neoplasm of lymph node, unspecified] Onset: 025 Chronic Secondary malignancies (2 sources) Secondary malignant neoplasm of liver and intrahepatic bile duct; Translations: [Secondary malignant neoplasm of liver and intrahepatic bile duct] Onset: Chronic Secondary malignancies (2 sources) Secondary and unspecified malignant neoplasm of intra-abdominal lymph nodes; Translations: [Secondary and unspecified malignant neoplasm of intra-abdominal lymph nodes] Onset: Chronic Unclassified (1 source) Transition of care; Translations: [Transition of care performed with sharing of clinical summary] Onset: 019 07-23-2019 Unclassified (1 source) Cystoid macular degeneration of left retina Onset: 023 09-01-2022 Unclassified (3 sources) C18.9 - Malignant neoplasm of colon, unspecified,C77.2 - Secondary and unspecified malignant neoplasm of intra-abdominal lymph nodes Unclassified (2 sources) The office will call you to confirm an appointment time Unclassified (1 source) Patient's noncompliance with other medical treatment and regimen due to unspecified reason; Translations: [Patient's noncompliance with other medical treatment and regimen due to unspecified reason] Onset: Past or Other Problems Problem Classification Problem Date Documented Da te Episodic/Chronic Acute posthemorrhagic anemia (13 sources) Acute posthemorrhagic anemia; Translations: [Acute posthemorrhagic anemia] Onset: 04-27-2024 04-23-2024 Episodic Administrative/social admission (20 sources) Discharge status; Translations: [Encounter for administrative examinations, unspecified] Onset: 07-18-2019 07-18-2019 Episodic Diabetes mellitus without complication (1 source) Metabolic stress hyperglycemia; Translations: [Hyperglycemia, unspecified] Onset: 07-19-2019 Resolved: 07-21-2019 07-21-2019 Episodic Esophageal disorders (2 sources) Esophagitis; Translations: [Esophagitis, unspecified] Onset: 03-23-2010 03-23-2010 Episodic Gastritis and duodenitis (2 sources) Acute gastritis; Translations: [Acute gastritis without bleeding] Onset: 03-23-2010 03-23-2010 Episodic Nonspecific chest pain (3 sources) Chest pain; Translations: [Chest pain, unspecified] Onset: 07-18-2019 07-18-2019 Episodic Other circulatory disease (2 sources) H/O: varicose veins; Translations: [Personal history of other diseases of the circulatory system] Onset: 07-18-2019 07-18-2019 Episodic Other circulatory disease (1 source) Other specified symptoms and signs involving the circulatory and respiratory systems; Translations: [Other specified symptoms and signs involving the circulatory and respiratory systems] Onset: 07-05-2024 Episodic Other circulatory disease (1 source) Personal history of transient ischemic attack (TIA), and cerebral infarction without residual deficits; Translations: [Personal history of transient ischemic attack (TIA), and cerebral infarction without residual deficits] Onset: 04-27-2024 Episodic Other gastrointestinal disorders (2 sources) Flatulence, eructation and gas pain; Translations: [Flatulence] Onset: 03-23-2010 03-23-2010 Episodic Other gastrointestinal disorders (1 source) Other specified diseases of intestine; Translations: [Other specified diseases of intestine] Onset: 04-27-2024 Episodic Other nervous system disorders (2 sources) Acute postoperative pain; Translations: [Other acute postprocedural pain] Onset: 07-19-2019 07-21-2019 Episodic Other nutritional; endocrine; and metabolic disorders (1 source) Overweight; Translations: [Overweight] Onset: 04-27-2024 Episodic Other screening for suspected conditions (not mental disorders or infectious disease) (20 sources) Raised cardiac enzyme or marker; Translations: [Other specified abnormal findings of blood chemistry] Onset: 04-27-2024 08-15-2023 Episodic Pleurisy; pneumothorax; pulmonary collapse (2 sources) Atelectasis; Translations: [Atelectasis] Onset: 07-20-2019 07-21-2019 Episodic Residual codes; unclassified (1 source) Transition of care; Translations: [Other specified health status] Onset: 07-21-2019 07-23-2019 Episodic Residual codes; unclassified (1 source) Acquired absence of other specified parts of digestive tract; Translations: [Acquired absence of other specified parts of digestive tract] Onset: 05-09-2024 Episodic Respiratory failure; insufficiency; arrest (adult) (1 source) Ventilator finding; Translations: [Dependence on respirator [ventilator] status] Onset: 07-19-2019 Resolved: 07-20-2019 07-20-2019 Chronic Spondylosis; intervertebral disc disorders; other back problems (1 source) Dorsalgia, unspecified; Translations: [Dorsalgia, unspecified] Onset: 09-21-2024 Episodic Syncope (14 sources) Syncope; Translations: [Syncope and collapse] Onset: 06-11-2024 06-15-2024 Episodic Unclassified (4 sources) AMD (chief complaint) Onset: 03-30-2023 Resolved: 09-07-2024 Unclassified (1 source) Wet AMD OS (chief complaint) Onset: 12-21-2023 Unclassified (1 source) Wet AMD OS Dry AMD OD (chief complaint) Onset: 08-24-2023 Unclassified (1 source) AMD OU (chief complaint) Onset: 09-29-2022 Unclassified (1 source) new patient (chief complaint) Onset: 09-01-2022 Results Test Name Value Interpretation Reference Range Facility 02-04-2025 36 Spoke with patient t o schedule CTA 02/19 at 11:30 am. In scheduling, patient has Medicare Part A only. Reviewed with central scheduling and patient would have to pay 50% upfront. Spoke with and confirmed patient is self pay with medicare part A. Instructed will have floor broker arrange for financial counseling/assistance with [facility] prior to any appts/tests/procedures. Routed to Clau Wesley to arrange and call patient back [facility] 01-31-2025 36 Left message for pat ient to call office back to schedule CT scan on 02/[address] [facility] 01-29-2025 36 Patient scheduled in valve clinic on 02/19 for aortic stenosis, cath and echo completed by Dr. Flores's office. BMP completed 01/08/25 in media. 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 Will call patient to schedule same day as OV. Normal [facility] 01-28-2025 36 Chart made and CITY ASSESSOR ondina ckmichelle mailed [facility] 01-22-2025 36 VC appt made for 01/30 09/25 I need to make chart and mail CITY ASSESSOR packet [facility] Oncology Visit Reporton 12-30 Oncology Visit Report Normal [facility] Absolute lymphocyte countOrd ered By: Malinda Webster on 01-08-2025 Lymphocytes Auto (Unsp spec) [#/Vol] 0.70 10*3/uL Low 0.83-4.51 [facility] Anion gap in Serum or Plasma Ordered By: Malinda Webster on 01-08-2025 Anion gap [Moles/Vol] 12 mmol/L - [facility] Automated lymphocyte count a s percentage of total leukocytesOrdered By: Malinda Darin on 01-08-2025 Lymphocytes/100 WBC Auto (Unsp spec) 12.0 % Low 19-41 [facility] BUN/creatinine ratioOrdered By: Malinda Webster on 01-08-2025 Urea nitrogen/Creatinine [Mass ratio] 12.0 mg/mg 05-20 [facility] Basic Metabolic Profile (BMP )on 01-08-2025 BUN/CRE 12.0 RATIO Normal 05-20 [facility] Comment on above: Performed By: #### L 100.0100, L500.2500 ####[facility] [address] [place], [address] Calcium [Mass/Vol] 9.3 mg/dL Normal 7.6-11.0 [facility] Comment on above: Performed By: #### L 100.0100, L500.2500 ####[facility] [address] [place], [address] Chloride [Moles/Vol] 96 mmol/L Low 98-108 [facility] Comment on above: Performed By: #### L 100.0100, L500.2500 ####[facility] [address] [place], [address] CO2 [Moles/Vol] 23.4 mmol/L Normal 21.0-32.0 [facility] Comment on above: Performed By: #### L 100.0100, L500.2500 ####[facility] [address] [place], [address] Creatinine [Mass/Vol] 0.97 mg/dL Normal 0.70-1.[address] [facility] Comment on above: Performed By: #### L 100.0100, L500.2500 ####[facility] [address] [place], [address] GAP 12 Normal - [facility] Comment on above: Performed By: #### L 100.0100, L500.2500 ####[facility] [address] [place], [address] GFR/1.73 sq M.predicted among non-blacks MDRD (S/P/Bld) [Vol rate/Area] 79 mL/min/{1.73_m2} Normal >60 [facility] Comment on above: Result Comment: mL/m in/1.73m2 CKD-EPI Creatinine Equation (2020) Performed By: #### L 100.0100, L500.2500 ####[facility] [address] [place], [address] Glucose [Mass/Vol] 102 mg/dL High 70-99 [facility] Comment on above: Performed By: #### L 100.0100, L500.2500 ####[facility] [address] [place], [address] Potassium [Moles/Vol] 4.4 mmol/L Normal 3.3-5.[address] [facility] Comment on above: Performed By: #### L 100.0100, L500.2500 ####[facility] [address] [place], [address] Sodium [Moles/Vol] 131 mmol/L Low 133-145 [facility] Comment on above: Performed By: #### L 100.0100, L500.2500 ####[facility] [address] [place], [address] Urea nitrogen [Mass/Vol] 12 mg/dL Normal 4-19 [facility] Comment on above: Performed By: #### L 100.0100, L500.2500 ####[facility] [address] [place], [address] Basophil percentageOrdered B y: Malinda Webster on 01-08-2025 Basophils/100 WBC (Bld) 0.2 % 0-1 [facility] CBC W/Diff, Automatedon 06-1 0-2025 Absolute Lymph 0.70 X10 3/uL Low 0.83-4.51 [facility] Comment on above: Performed By: #### L 100.0100, L500.2500 ####[facility] [address] [place], [address] Absolute Neut 4.3 X10 3/uL Normal 2.0-7.7 [facility] Comment on above: Performed By: #### L 100.0100, L500.2500 ####[facility] [address] [place], [address] Basophils/100 WBC (Bld) 0.2 % Normal 0-1 [facility] Comment on above: Performed By: #### L 100.0100, L500.2500 ####[facility] [address] [place], [address] Eosinophils/100 WBC (Bld) 1.2 % Normal 0-5 [facility] Comment on above: Performed By: #### L 100.0100, L500.2500 ####[facility] [address] [place], [address] Erythrocyte distribution width (RBC) [Ratio] 12.7 % Normal 11.6-14.6 [facility] Comment on above: Performed By: #### L 100.0100, L500.2500 ####[facility] [address] [place], [address] Hematocrit (Bld) [Volume fraction] 32.6 % Low 40-54 [facility] Comment on above: Performed By: #### L 100.0100, L500.2500 ####[facility] [address] [place], [address] Hemoglobin (Bld) [Mass/Vol] 10.9 g/dL Low 13.0-16.5 [facility] Comment on above: Performed By: #### L 100.0100, L500.2500 ####[facility] [address] [place], [address] IG% 0.200 Normal 0.0-0.9 [facility] Comment on above: Result Comment: IG% - Immature Granulocytes (promyelocytes, myelocytes andmetamyelocytes) > 1% indicates that a LEFT SHIFT is Present. Performed By: #### L 100.0100, L500.2500 ####[facility] [address] [place], [address] Lymphocytes/100 WBC (Bld) 12.0 % Low 19-41 [facility] Comment on above: Performed By: #### L 100.0100, L500.2500 ####[facility] [address] [place], [address] MCH (RBC) [Entitic mass] 29.1 pg Normal 27.0-32.0 [facility] Comment on above: Performed By: #### L 100.0100, L500.2500 ####[facility] [address] [place], [address] MCHC (RBC) [Mass/Vol] 33.4 g/dL Normal 32-[address] [facility] Comment on above: Performed By: #### L 100.0100, L500.2500 ####[facility] [address] [place], [address] MCV (RBC) [Entitic vol] 86.9 fL Normal 80-94 [facility] Comment on above: Performed By: #### L 100.0100, L500.2500 ####[facility] [address] [place], [address] Monocytes/100 WBC (Bld) 11.9 % High 0-10 [facility] Comment on above: Performed By: #### L 100.0100, L500.2500 ####[facility] [address] [place], [address] Neutrophils/100 WBC (Bld) 74.5 % High 47-70 [facility] Comment on above: Performed By: #### L 100.0100, L500.2500 ####[facility] [address] [place], [address] Nucleated RBC (Bld) [#/Vol] 0 10*3/uL Normal 0-5 [facility] Comment on above: Performed By: #### L 100.0100, L500.2500 ####[facility] [address] [place], [address] Platelet mean volume (Bld) [Entitic vol] 10.1 fL Normal 6.2-12.0 [facility] Comment on above: Performed By: #### L 100.0100, L500.2500 ####[facility] [address] [place], [address] Platelets (Bld) [#/Vol] 243 10*3/uL Normal 150-450 [facility] Comment on above: Performed By: #### L 100.0100, L500.2500 ####[facility] [address] [place], [address] RBC (Bld) [#/Vol] 3.75 10*6/uL Low 4.6-6.2 [facility] Comment on above: Performed By: #### L 100.0100, L500.2500 ####[facility] [address] [place], [address] RDW SD 40.5 fl Normal 35.1-43.9 [facility] Comment on above: Performed By: #### L 100.0100, L500.2500 ####[facility] [address] [place], [address] WBC (Bld) [#/Vol] 5.8 10*3/uL Normal 4.4-11.0 [facility] Comment on above: Performed By: #### L 100.0100, L500.2500 ####[facility] [address] [place], [place], [id number] Carbon dioxide, total [Moles /volume] in Central venous bloodOrdered By: Malinda Webster on 01-08-2025 CO2 [Moles/Vol] 23.4 mmol/L 21.0-32.0 [facility] Chloride assayOrdered By: Santa Webster on 01-08-2025 Chloride [Moles/Vol] 96 mmol/L Low 98-108 [facility] Eosinophil percentageOrdered By: Malinda Webster on 01-08-2025 Eosinophils/100 WBC (Bld) 1.2 % 0-5 [facility] Erythrocyte distribution wid th ratioOrdered By: Malinda Webster on 01-08-2025 Erythrocyte distribution width (RBC) [Ratio] 12.7 % 11.6-14.6 [facility] Erythrocyte distribution wid th standard deviationOrdered By: Malinda Webster on 01-08-2025 Erythrocyte distribution width (RBC) [Ratio] 40.5 fl 35.1-43.9 [facility] Glomerular filtration rate ( GFR) estimation/1.73 sq m using serum, plasma, or whole bOrdered By: Malinda Webster on 01-08-2025 GFR/1.73 sq M.predicted among non-blacks MDRD (S/P/Bld) [Vol rate/Area] 79 mL/min/{1.73_m2} >60 [facility] Hematocrit Auto (Bld) [Volum e fraction]Ordered By: Malinda Webster on 01-08-2025 Hematocrit (Bld) [Volume fraction] 32.6 % Low 40-54 [facility] Hemoglobin measurementOrdere d By: Malinda Webster on 01-08-2025 Hemoglobin (Bld) [Mass/Vol] 10.9 g/dL Low 13.0-16.5 [facility] Immature granulocytes/100 WB C Auto (Bld)Ordered By: Malinda Webster on 01-08-2025 Immature granulocytes/100 WBC (Bld) 0.200 % 0.0-0.9 [facility] MCV (mean corpuscular volume ) determinationOrdered By: Malinda Webster on 01-08-2025 MCV (RBC) [Entitic vol] 86.9 fL 80-94 [facility] Mean corpuscular hemoglobin (MCH) determinationOrdered By: Malinda Webster on 01-08-2025 MCH (RBC) [Entitic mass] 29.1 pg 27.0-32.0 [facility] Monocyte percentageOrdered B y: Malinda Webster on 01-08-2025 Monocytes/100 WBC (Bld) 11.9 % High 0-10 [facility] Neutrophil percentageOrdered By: Malinda Webster on 01-08-2025 Neutrophils/100 WBC (Bld) 74.5 % High 47-70 [facility] Platelet countOrdered By: Santa Webster on 01-08-2025 Platelets (Bld) [#/Vol] 243 10*3/uL 150-450 [facility] Potassium measurement (mass/ volume)Ordered By: Malinda Webster on 01-08-2025 Potassium (Unsp spec) [Mass/Vol] 4.4 mmol/L 3.3-5.1 [facility] RBC Auto (Bld) [#/Vol]Ordere d By: Malinda Webster on 01-08-2025 RBC (Bld) [#/Vol] 3.75 10*6/uL Low 4.6-6.2 [facility] Serum creatinine measurement (mass/volume)Ordered By: Malinda Webster on 01-08-2025 Creatinine [Mass/Vol] 0.97 mg/dL 0.70-1.[address] [facility] Serum glucose measurement (m ass/volume)Ordered By: Malinda Webster on 01-08-2025 Glucose [Mass/Vol] 102 mg/dL High 70-99 [facility] Serum or plasma calcium shagufta urement (mass/volume)Ordered By: Malinda Webster on 01-08-2025 Calcium [Mass/Vol] 9.3 mg/dL 7.6-11.0 [facility] Serum or plasma urea nitroge n measurement (mass/volume)Ordered By: Malinda Webster on 01-08-2025 Urea nitrogen [Mass/Vol] 12 mg/dL 4-19 [facility] Sodium levelOrdered By: Malinda Webster on 01-08-2025 Sodium [Moles/Vol] 131 mmol/L Low 133-145 [facility] White blood cell (WBC) count Ordered By: Malinda Webster on 01-08-2025 WBC (Bld) [#/Vol] 5.8 10*3/uL 4.4-11.0 [facility] Carcinoembryonic Antigenon 0 12-16-2024 CEA 47.8 ng/mL High 0.0-4.7 [facility] Comment on above: Order Comment: MALINDA WEBSTER ORDERED CBCD Result Comment: Nons mokers <3.9 Smokers <5.6[employer] Electrochemiluminescence Immunoassay(ECLIA)Values obtained with different assay methods or kitscannot be used interchangeably. Results cannot beinterpreted as absolute evidence of the presence orabsence of malignant disease.Performed at: [facility] [id number] Director: Jian Paredes PhD, Phone: [phone] Performed By: #### L 100.0100, L503.4650, L503.6030, L3100.2300, L500.4050 ####[facility] [address] [place], [address] Absolute lymphocyte countOrd ered By: [facility] on 12-14-2024 Lymphocytes Auto (Unsp spec) [#/Vol] 0.68 10*3/uL Low 0.83-4.51 [facility] Anion gap in Serum or Plasma Ordered By: Brenda Araujo on 12-14-2024 Anion gap [Moles/Vol] 12 mmol/L 5-[address] [facility] Automated lymphocyte count a s percentage of total leukocytesOrdered By: Brenda Araujo on 12-14-2024 Lymphocytes/100 WBC Auto (Unsp spec) 9.9 % Low 19-41 [facility] BUN/creatinine ratioOrdered By: [facility] on 12-14-2024 Urea nitrogen/Creatinine [Mass ratio] 11.3 mg/mg 10-20 [facility] Basophil percentageOrdered B y: Brenda Araujo on 12-14-2024 Basophils/100 WBC (Bld) 0.4 % 0-1 [facility] Bilirubin, totalOrdered By: Brenda Araujo on 12-14-2024 Bilirubin [Mass/Vol] 0.51 mg/dL 0.00-1.30 [facility] CBC W/Diff, Automatedon 05-1 -2024 Absolute Lymph 0.68 X10 3/uL Low 0.83-4.51 [facility] Comment on above: Order Comment: MALINDA WEBSTER ORDERED CBCD Performed By: #### L 100.0100, L503.6550, L503.6030, L3100.2300, L500.4050 ####[facility] [address] [place], [address] Absolute Neut 5.5 X10 3/uL Normal 2.0-7.7 [facility] Comment on above: Order Comment: MALINDA WEBSTER ORDERED CBCD Performed By: #### L 100.0100, L503.6550, L503.6030, L3100.2300, L500.4050 ####[facility] [address] [place], [address] Basophils/100 WBC (Bld) 0.4 % Normal 0-1 [facility] Comment on above: Order Comment: MALINDA WEBSTER ORDERED CBCD Performed By: #### L 100.0100, L503.6550, L503.6030, L3100.2300, L500.4050 ####[facility] [address] [place], [address] Eosinophils/100 WBC (Bld) 0.4 % Normal 0-5 [facility] Comment on above: Order Comment: MALINDA WEBSTER ORDERED CBCD Performed By: #### L 100.0100, L503.6550, L503.6030, L3100.2300, L500.4050 ####[facility] [address] [place], [address] Erythrocyte distribution width (RBC) [Ratio] 12.8 % Normal 11.6-14.6 [facility] Comment on above: Order Comment: MALINDA WEBSTER ORDERED CBCD Performed By: #### L 100.0100, L503.6550, L503.6030, L3100.2300, L500.4050 ####[facility] [address] [place], [address] Hematocrit (Bld) [Volume fraction] 31.4 % Low 40-54 [facility] Comment on above: Order Comment: MALINDA WEBSTER ORDERED CBCD Performed By: #### L 100.0100, L503.6550, L503.6030, L3100.2300, L500.4050 ####[facility] [address] [place], [address] Hemoglobin (Bld) [Mass/Vol] 10.8 g/dL Low 13.0-16.5 [facility] Comment on above: Order Comment: MALINDA WEBSTER ORDERED CBCD Performed By: #### L 100.0100, L503.6550, L503.6030, L3100.2300, L500.4050 ####[facility] [address] [place], [address] IG% 0.400 Normal 0.0-0.9 [facility] Comment on above: Order Comment: MALINDA WEBSTER ORDERED CBCD Result Comment: IG% - Immature Granulocytes (promyelocytes, myelocytes andmetamyelocytes) > 1% indicates that a LEFT SHIFT is Present. Performed By: #### L 100.0100, L503.6550, L503.6030, L3100.2300, L500.4050 ####[facility] [address] [place], [address] Lymphocytes/100 WBC (Bld) 9.9 % Low 19-41 [facility] Comment on above: Order Comment: MALINDA WEBSTER ORDERED CBCD Performed By: #### L 100.0100, L503.6550, L503.6030, L3100.2300, L500.4050 ####[facility] [address] [place], [address] MCH (RBC) [Entitic mass] 30.6 pg Normal 27.0-32.0 [facility] Comment on above: Order Comment: MALINDA WEBSTER ORDERED CBCD Performed By: #### L 100.0100, L503.6550, L503.6030, L3100.2300, L500.4050 ####[facility] [address] [place], [address] MCHC (RBC) [Mass/Vol] 34.4 g/dL Normal 32-[address] [facility] Comment on above: Order Comment: MALINDA WEBSTER ORDERED CBCD Performed By: #### L 100.0100, L503.6550, L503.6030, L3100.2300, L500.4050 ####[facility] [address] [place], [address] MCV (RBC) [Entitic vol] 89.0 fL Normal 80-94 [facility] Comment on above: Order Comment: MALINDA WEBSTER ORDERED CBCD Performed By: #### L 100.0100, L503.6550, L503.6030, L3100.2300, L500.4050 ####[facility] [address] [place], [address] Monocytes/100 WBC (Bld) 8.6 % Normal 0-10 [facility] Comment on above: Order Comment: MALINDA WEBSTER ORDERED CBCD Performed By: #### L 100.0100, L503.6550, L503.6030, L3100.2300, L500.4050 ####[facility] [address] [place], [address] Neutrophils/100 WBC (Bld) 80.3 % High 47-70 [facility] Comment on above: Order Comment: MALINDA WEBSTER ORDERED CBCD Performed By: #### L 100.0100, L503.6550, L503.6030, L3100.2300, L500.4050 ####[facility] [address] [place], [address] Nucleated RBC (Bld) [#/Vol] 0 10*3/uL Normal 0-5 [facility] Comment on above: Order Comment: MALINDA WEBSTER ORDERED CBCD Performed By: #### L 100.0100, L503.6550, L503.6030, L3100.2300, L500.4050 ####[facility] [address] [place], [address] Platelet mean volume (Bld) [Entitic vol] 9.6 fL Normal 6.2-12.0 [facility] Comment on above: Order Comment: MALINDA WEBSTER ORDERED CBCD Performed By: #### L 100.0100, L503.6550, L503.6030, L3100.2300, L500.4050 ####[facility] [address] [place], [address] Platelets (Bld) [#/Vol] 312 10*3/uL Normal 150-450 [facility] Comment on above: Order Comment: MALINDA WEBSTER ORDERED CBCD Performed By: #### L 100.0100, L503.6550, L503.6030, L3100.2300, L500.4050 ####[facility] [address] [place], [address] RBC (Bld) [#/Vol] 3.53 10*6/uL Low 4.6-6.2 [facility] Comment on above: Order Comment: MALINDA WEBSTER ORDERED CBCD Performed By: #### L 100.0100, L503.6550, L503.6030, L3100.2300, L500.4050 ####[facility] [address] [place], [address] RDW SD 41.6 fl Normal 35.1-43.9 [facility] Comment on above: Order Comment: MALINDA WEBSTER ORDERED CBCD Performed By: #### L 100.0100, L503.6550, L503.6030, L3100.2300, L500.4050 ####[facility] [address] [place], [address] WBC (Bld) [#/Vol] 6.9 10*3/uL Normal 4.4-11.0 [facility] Comment on above: Order Comment: MALINDA WEBSTER ORDERED CBCD Performed By: #### L 100.0100, L503.6550, L503.6030, L3100.2300, L500.4050 ####[facility] [address] [place], [address] Absolute Neut Normal 2.0-7.7 [facility] Comment on above: Result Comment: CBCD ORDER ON OTHER REQ Performed By: #### L 100.0100 ####[facility] [address] [place], [address] HCT Normal 40-54 [facility] Comment on above: Result Comment: CBCD ORDER ON OTHER REQ Performed By: #### L 100.0100 ####[facility] [address] [place], [address] HGB Normal 13.0-16.5 [facility] Comment on above: Result Comment: CBCD ORDER ON OTHER REQ Performed By: #### L 100.0100 ####[facility] [address] [place], [address] MCH Normal 27.0-32.0 [facility] Comment on above: Result Comment: CBCD ORDER ON OTHER REQ Performed By: #### L 100.0100 ####[facility] [address] [place], [address] MCHC Normal 32-36 [facility] Comment on above: Result Comment: CBCD ORDER ON OTHER REQ Performed By: #### L 100.0100 ####[facility] [address] [place], [address] MCV Normal 80-94 [facility] Comment on above: Result Comment: CBCD ORDER ON OTHER REQ Performed By: #### L 100.0100 ####[facility] [address] [place], [address] NEUT% Normal 47-70 [facility] Comment on above: Result Comment: CBCD ORDER ON OTHER REQ Performed By: #### L 100.0100 ####[facility] [address] [place], [address] PLT Normal 150-450 [facility] Comment on above: Result Comment: CBCD ORDER ON OTHER REQ Performed By: #### L 100.0100 ####[facility] [address] [place], [address] RBC Normal 4.6-6.2 [facility] Comment on above: Result Comment: CBCD ORDER ON OTHER REQ Performed By: #### L 100.0100 ####[facility] [address] [place], [address] RDW CV Normal 11.6-14.6 [facility] Comment on above: Result Comment: CBCD ORDER ON OTHER REQ Performed By: #### L 100.0100 ####[facility] [address] [place], [address] RDW SD Normal 35.1-43.9 [facility] Comment on above: Result Comment: CBCD ORDER ON OTHER REQ Performed By: #### L 100.0100 ####[facility] [address] [place], [address] WBC Normal 4.4-11.0 [facility] Comment on above: Result Comment: CBCD ORDER ON OTHER REQ Performed By: #### L 100.0100 ####[facility] [address] [place], [address] Carbon dioxide, total [Moles /volume] in Central venous bloodOrdered By: Brenda Araujo on 12-14-2024 CO2 [Moles/Vol] 23.4 mmol/L 21.0-32.0 [facility] Chest PA and Lateralon 12-14 Chest PA and Lateral Normal [facility] Chloride assayOrdered By: Kalen Araujo on 12-14-2024 Chloride [Moles/Vol] 97 mmol/L Low 98-108 [facility] Comprehensive Metabolic Prof ilon 12-14-2024 Albumin [Mass/Vol] 4.2 g/dL Normal 3.4-4.8 [facility] Comment on above: Order Comment: MALINDA WEBSTER ORDERED CBCD Performed By: #### L 100.0100, L503.6550, L503.6030, L3100.2300, L500.4050 ####[facility] [address] [place], [address] Albumin/Globulin [Mass ratio] 1.4 {ratio} Normal 0.9-2.4 [facility] Comment on above: Order Comment: MALINDA WEBSTER ORDERED CBCD Performed By: #### L 100.0100, L503.6550, L503.6030, L3100.2300, L500.4050 ####[facility] [address] [place], [address] ALK PHOS 116 U/L Normal 40-129 [facility] Comment on above: Order Comment: MALINDA WEBSTER ORDERED CBCD Performed By: #### L 100.0100, L503.6550, L503.6030, L3100.2300, L500.4050 ####[facility] [address] [place], [address] ALT [Catalytic activity/Vol] 11 U/L Normal <=46 [facility] Comment on above: Order Comment: MALINDA WEBSTER ORDERED CBCD Performed By: #### L 100.0100, L503.6550, L503.6030, L3100.2300, L500.4050 ####[facility] [address] [place], [address] AST [Catalytic activity/Vol] 24 U/L Normal <=37 [facility] Comment on above: Order Comment: MALINDA WEBSTER ORDERED CBCD Performed By: #### L 100.0100, L503.6550, L503.6030, L3100.2300, L500.4050 ####[facility] [address] [place], [address] Bilirubin [Mass/Vol] 0.51 mg/dL Normal 0.00-1.30 [facility] Comment on above: Order Comment: MALINDA DARIN ORDERED CBCD Performed By: #### L 100.0100, L503.6550, L503.6030, L3100.2300, L500.4050 ####[facility] [address] [place], [address] BUN/CRE 11.3 RATIO Normal 10-20 [facility] Comment on above: Order Comment: MALINDA DARIN ORDERED CBCD Performed By: #### L 100.0100, L503.6550, L503.6030, L3100.2300, L500.4050 ####[facility] [address] [place], [address] Calcium [Mass/Vol] 9.3 mg/dL Normal 7.6-11.0 [facility] Comment on above: Order Comment: MALINDA DARIN ORDERED CBCD Performed By: #### L 100.0100, L503.6550, L503.6030, L3100.2300, L500.4050 ####[facility] [address] [place], [address] Chloride [Moles/Vol] 97 mmol/L Low 98-108 [facility] Comment on above: Order Comment: MALINAD DARIN ORDERED CBCD Performed By: #### L 100.0100, L503.6550, L503.6030, L3100.2300, L500.4050 ####[facility] [address] [place], [address] CO2 [Moles/Vol] 23.4 mmol/L Normal 21.0-32.0 [facility] Comment on above: Order Comment: MALINDA WEBSTER ORDERED CBCD Performed By: #### L 100.0100, L503.6550, L503.6030, L3100.2300, L500.4050 ####[facility] [address] [place], [address] Creatinine [Mass/Vol] 1.00 mg/dL Normal 0.70-1.[address] [facility] Comment on above: Order Comment: MALINDA DARIN ORDERED CBCD Performed By: #### L 100.0100, L503.6550, L503.6030, L3100.2300, L500.4050 ####[facility] [address] [place], [address] GAP 12 Normal 5-15 [facility] Comment on above: Order Comment: MALINDA WEBSTER ORDERED CBCD Performed By: #### L 100.0100, L503.6550, L503.6030, L3100.2300, L500.4050 ####[facility] [address] [place], [address] GFR/1.73 sq M.predicted among non-blacks MDRD (S/P/Bld) [Vol rate/Area] 76 mL/min/{1.73_m2} Normal >60 [facility] Comment on above: Order Comment: MALINDA DARIN ORDERED CBCD Result Comment: mL/m in/1.73m2 CKD-EPI Creatinine Equation (2020) Performed By: #### L 100.0100, L503.6550, L503.6030, L3100.2300, L500.4050 ####[facility] [address] [place], [address] Globulin (S) [Mass/Vol] 3.0 g/dL Normal 2.2-4.2 [facility] Comment on above: Order Comment: MALINDA WEBSTER ORDERED CBCD Performed By: #### L 100.0100, L503.6550, L503.6030, L3100.2300, L500.4050 ####[facility] [address] [place], [address] Glucose [Mass/Vol] 106 mg/dL High 70-99 [facility] Comment on above: Order Comment: MALINDA WEBSTER ORDERED CBCD Performed By: #### L 100.0100, L503.6550, L503.6030, L3100.2300, L500.4050 ####[facility] [address] [place], [address] Potassium [Moles/Vol] 3.8 mmol/L Normal 3.3-5.[address] [facility] Comment on above: Order Comment: MALINDA WEBSTER ORDERED CBCD Performed By: #### L 100.0100, L503.6550, L503.6030, L3100.2300, L500.4050 ####[facility] [address] [place], [address] Sodium [Moles/Vol] 133 mmol/L Normal 133-145 [facility] Comment on above: Order Comment: MALINDA WEBSTER ORDERED CBCD Performed By: #### L 100.0100, L503.6550, L503.6030, L3100.2300, L500.4050 ####[facility] [address] [place], [address] T PROT 7.3 g/dL Normal 5.9-8.4 [facility] Comment on above: Order Comment: MALINDA WEBSTER ORDERED CBCD Performed By: #### L 100.0100, L503.6550, L503.6030, L3100.2300, L500.4050 ####[facility] [address] [place], [address] Urea nitrogen [Mass/Vol] 11 mg/dL Normal 4-19 [facility] Comment on above: Order Comment: MALINDA WEBSTER ORDERED CBCD Performed By: #### L 100.0100, L503.6550, L503.6030, L3100.2300, L500.4050 ####[facility] [address] [place], [address] Eosinophil percentageOrdered By: Brenda Araujo on 12-14-2024 Eosinophils/100 WBC (Bld) 0.4 % 0-5 [facility] Erythrocyte distribution wid th ratioOrdered By: Brenda Araujo on 12-14-2024 Erythrocyte distribution width (RBC) [Ratio] 12.8 % 11.6-14.6 [facility] Erythrocyte distribution wid th standard deviationOrdered By: [facility] on 12-14-2024 Erythrocyte distribution width (RBC) [Ratio] 41.6 fl 35.1-43.9 [facility] Ferritinon 12-14-2024 Ferritin [Mass/Vol] 49 ng/mL Normal 37-417 [facility] Comment on above: Order Comment: MALINDA WEBSTER ORDERED CBCD Performed By: #### L 100.0100, L503.6550, L503.6030, L3100.2300, L500.4050 ####[facility] [address] [place], [place], [address] Glomerular filtration rate ( GFR) estimation/1.73 sq m using serum, plasma, or whole bOrdered By: [facility] on 12-14-2024 GFR/1.73 sq M.predicted among non-blacks MDRD (S/P/Bld) [Vol rate/Area] 76 mL/min/{1.73_m2} >60 [facility] Hematocrit Auto (Bld) [Volum e fraction]Ordered By: [facility] on 12-14-2024 Hematocrit (Bld) [Volume fraction] 31.4 % Low 40-54 [facility] Hemoglobin measurementOrdere d By: Brenda Araujo on 12-14-2024 Hemoglobin (Bld) [Mass/Vol] 10.8 g/dL Low 13.0-16.5 [facility] Immature granulocytes/100 WB C Auto (Bld)Ordered By: Brenda Araujo on 12-14-2024 Immature granulocytes/100 WBC (Bld) 0.400 % 0.0-0.9 [facility] Iron measurement (mass/mass) Ordered By: Brenda Araujo on 12-14-2024 Iron (Unsp spec) [Mass/Mass] 24 ug/dL Low 65-175 [facility] Iron+Iron Binding Capacityon 12-14-2024 Iron [Mass/Vol] 24 ug/dL Low 65-175 [facility] Comment on above: Order Comment: MALINDA WEBSTER ORDERED CBCD Performed By: #### L 100.0100, L503.6550, L503.6030, L3100.2300, L500.4050 ####[facility] [address] [place], [address] IRON SATURATION 8.0 Low 9-55 [facility] Comment on above: Order Comment: MALINDA WEBSTER ORDERED CBCD Performed By: #### L 100.0100, L503.6550, L503.6030, L3100.2300, L500.4050 ####[facility] [address] [place], [address] TIBC 314 ug/dL Normal 250-450 [facility] Comment on above: Order Comment: MALINDA WEBSTER ORDERED CBCD Performed By: #### L 100.0100, L503.6550, L503.6030, L3100.2300, L500.4050 ####[facility] [address] [place], [address] UIBC 290 ug/dL Normal 228-428 [facility] Comment on above: Order Comment: MALINDA WEBSTER ORDERED CBCD Performed By: #### L 100.0100, L503.6550, L503.6030, L3100.2300, L500.4050 ####[facility] [address] [place], [address] MCV (mean corpuscular volume ) determinationOrdered By: Brenda Araujo on 12-14-2024 MCV (RBC) [Entitic vol] 89.0 fL 80-94 [facility] Mean corpuscular hemoglobin (MCH) determinationOrdered By: Brenda Araujo on 12-14-2024 MCH (RBC) [Entitic mass] 30.6 pg 27.0-32.0 [facility] Monocyte percentageOrdered B y: Brenda Araujo on 12-14-2024 Monocytes/100 WBC (Bld) 8.6 % 0-10 [facility] Neutrophil percentageOrdered By: Brenda Araujo on 12-14-2024 Neutrophils/100 WBC (Bld) 80.3 % High 47-70 [facility] No Panel InformationOrdered By: Brenda Araujo on 12-14-2024 24 U/L <38 [facility] 290 ug/dL 228-428 [facility] Platelet countOrdered By: Kalen Araujo on 12-14-2024 Platelets (Bld) [#/Vol] 312 10*3/uL 150-450 [facility] Potassium measurement (mass/ volume)Ordered By: Brenda Araujo on 12-14-2024 Potassium (Unsp spec) [Mass/Vol] 3.8 mmol/L 3.3-5.1 [facility] RBC Auto (Bld) [#/Vol]Ordere d By: Brenda Araujo on 12-14-2024 RBC (Bld) [#/Vol] 3.53 10*6/uL Low 4.6-6.2 [facility] Serum creatinine measurement (mass/volume)Ordered By: Brenda Araujo on 12-14-2024 Creatinine [Mass/Vol] 1.00 mg/dL 0.70-1.[address] [facility] Serum globulin measurementOr dered By: Brenda Araujo on 12-14-2024 Globulin (S) [Mass/Vol] 3.0 g/dL 2.2-4.2 [facility] Serum glucose measurement (m ass/volume)Ordered By: Brenda Araujo on 12-14-2024 Glucose [Mass/Vol] 106 mg/dL High 70-99 [facility] Serum or plasma alanine carrion otransferase (ALT) measurementOrdered By: Brenda Araujo on 12-14-2024 ALT [Catalytic activity/Vol] 11 U/L <47 [facility] Serum or plasma albumin shagufta urement (mass/volume)Ordered By: Bredna Araujo on 12-14-2024 Albumin [Mass/Vol] 4.2 g/dL 3.4-4.8 [facility] Serum or plasma albumin/glob ulin mass ratioOrdered By: Brenda Araujo on 12-14-2024 Albumin/Globulin [Mass ratio] 1.4 {ratio} 0.9-2.4 [facility] Serum or plasma alkaline airam sphatase measurementOrdered By: Brenda Araujo on 12-14-2024 ALP [Catalytic activity/Vol] 116 U/L 40-129 [facility] Serum or plasma calcium shagufta urement (mass/volume)Ordered By: Brenda Araujo on 12-14-2024 Calcium [Mass/Vol] 9.3 mg/dL 7.6-11.0 [facility] Serum or plasma carcinoembry onic antigen measurement (mass/volume)Ordered By: Brenda Araujo on 12-14-2024 Carcinoembryonic Ag [Mass/Vol] 47.8 ng/mL High 0.0-4.7 [facility] Serum or plasma ferritin francy surement (mass/volume)Ordered By: Brenda Araujo on 12-14-2024 Ferritin [Mass/Vol] 49 ng/mL 37-417 [facility] Serum or plasma iron saturat ion measurement (mass fraction)Ordered By: Brenda Araujo on 12-14-2024 Iron saturation [Mass fraction] 8.0 % Low 9-55 [facility] Serum or plasma urea nitroge n measurement (mass/volume)Ordered By: Brenda Araujo on 12-14-2024 Urea nitrogen [Mass/Vol] 11 mg/dL 4-19 [facility] Sodium levelOrdered By: Tha Araujo on 12-14-2024 Sodium [Moles/Vol] 133 mmol/L 133-145 [facility] Total proteinOrdered By: Rahul Araujo on 12-14-2024 Protein [Mass/Vol] 7.3 g/dL 5.9-8.4 [facility] White blood cell (WBC) count Ordered By: Brenda Araujo on 12-14-2024 WBC (Bld) [#/Vol] 6.9 10*3/uL 4.4-11.0 [facility] Surgical pathology reportOrd ered By: Teresa Martel on 12-06-2024 Surgical pathology study [facility] Absolute lymphocyte countOrd ered By: Darrel Watts on 12-05-2024 Lymphocytes Auto (Unsp spec) [#/Vol] 0.91 10*3/uL 0.83-4.51 [facility] Absolute neutrophil countOrd ered By: Darrel Watts on 12-05-2024 Neutrophils (Bld) [#/Vol] 5.6 10*3/uL 2.0-7.7 [facility] Activated partial thrombopla stin time (aPTT) in platelet poor plasma by coagulation aOrdered By: Darrel Watts on 12-05-2024 aPTT Coag (PPP) [Time] 34.0 s 24.1-36.2 [facility] Automated lymphocyte count a s percentage of total leukocytesOrdered By: Darrel Watts on 12-05-2024 Lymphocytes/100 WBC Auto (Unsp spec) 12.1 % Low 19-41 [facility] Basophil percentageOrdered B y: Darrel Watts on 12-05-2024 Basophils/100 WBC (Bld) 0.3 % 0-1 [facility] Biopsy/Inj or Needle Placeme nton 12-05-2024 Biopsy/Inj or Needle Placement Normal [facility] CBC W/Diff, Automatedon Absolute Lymph 0.91 X10 3/uL Normal 0.83-4.51 [facility] Comment on above: Performed By: #### L 300.4310, L300.3900, L100.0100 ####[facility] [address] [place], [address] Absolute Neut 5.6 X10 3/uL Normal 2.0-7.7 [facility] Comment on above: Performed By: #### L 300.4310, L300.3900, L100.0100 ####[facility] [address] [place], [address] Basophils/100 WBC (Bld) 0.3 % Normal 0-1 [facility] Comment on above: Performed By: #### L 300.4310, L300.3900, L100.0100 ####[facility] [address] [place], [address] Eosinophils/100 WBC (Bld) 2.3 % Normal 0-5 [facility] Comment on above: Performed By: #### L 300.4310, L300.3900, L100.0100 ####[facility] [address] [place], [address] Erythrocyte distribution width (RBC) [Ratio] 12.7 % Normal 11.6-14.6 [facility] Comment on above: Performed By: #### L 300.4310, L300.3900, L100.0100 ####[facility] [address] [place], [address] Hematocrit (Bld) [Volume fraction] 29.2 % Low 40-54 [facility] Comment on above: Performed By: #### L 300.4310, L300.3900, L100.0100 ####[facility] [address] [place], [address] Hemoglobin (Bld) [Mass/Vol] 10.0 g/dL Low 13.0-16.5 [facility] Comment on above: Performed By: #### L 300.4310, L300.3900, L100.0100 ####[facility] [address] [place], [address] IG% 0.300 Normal 0.0-0.9 [facility] Comment on above: Result Comment: IG% - Immature Granulocytes (promyelocytes, myelocytes andmetamyelocytes) > 1% indicates that a LEFT SHIFT is Present. Performed By: #### L 300.4310, L300.3900, L100.0100 ####[facility] [address] [place], [address] Lymphocytes/100 WBC (Bld) 12.1 % Low 19-41 [facility] Comment on above: Performed By: #### L 300.4310, L300.3900, L100.0100 ####[facility] [address] [place], [address] MCH (RBC) [Entitic mass] 30.4 pg Normal 27.0-32.0 [facility] Comment on above: Performed By: #### L 300.4310, L300.3900, L100.0100 ####[facility] [address] [place], [address] MCHC (RBC) [Mass/Vol] 34.2 g/dL Normal 32-[address] [facility] Comment on above: Performed By: #### L 300.4310, L300.3900, L100.0100 ####[facility] [address] [place], [address] MCV (RBC) [Entitic vol] 88.8 fL Normal 80-94 [facility] Comment on above: Performed By: #### L 300.4310, L300.3900, L100.0100 ####[facility] [address] [place], [address] Monocytes/100 WBC (Bld) 10.8 % High 0-10 [facility] Comment on above: Performed By: #### L 300.4310, L300.3900, L100.0100 ####[facility] [address] [place], [address] Neutrophils/100 WBC (Bld) 74.2 % High 47-70 [facility] Comment on above: Performed By: #### L 300.4310, L300.3900, L100.0100 ####[facility] [address] [place], [address] Nucleated RBC (Bld) [#/Vol] 0 10*3/uL Normal 0-5 [facility] Comment on above: Performed By: #### L 300.4310, L300.3900, L100.0100 ####[facility] [address] [place], [address] Platelet mean volume (Bld) [Entitic vol] 8.8 fL Normal 6.2-12.0 [facility] Comment on above: Performed By: #### L 300.4310, L300.3900, L100.0100 ####[facility] [address] [place], [address] Platelets (Bld) [#/Vol] 334 10*3/uL Normal 150-450 [facility] Comment on above: Performed By: #### L 300.4310, L300.3900, L100.0100 ####[facility] [address] [place], [address] RBC (Bld) [#/Vol] 3.29 10*6/uL Low 4.6-6.2 [facility] Comment on above: Performed By: #### L 300.4310, L300.3900, L100.0100 ####[facility] [address] [place], [address] RDW SD 41.4 fl Normal 35.1-43.9 [facility] Comment on above: Performed By: #### L 300.4310, L300.3900, L100.0100 ####[facility] [address] [place], [address] WBC (Bld) [#/Vol] 7.5 10*3/uL Normal 4.4-11.0 [facility] Comment on above: Performed By: #### L 300.4310, L300.3900, L100.0100 ####[facility] [address] [place], [address] Eosinophil percentageOrdered By: Darrel Watts on 12-05-2024 Eosinophils/100 WBC (Bld) 2.3 % 0-5 [facility] Erythrocyte distribution wid th ratioOrdered By: Darrel Watts on 12-05-2024 Erythrocyte distribution width (RBC) [Ratio] 12.7 % 11.6-14.6 [facility] Erythrocyte distribution wid th standard deviationOrdered By: Darrel Watts on 12-05-2024 Erythrocyte distribution width (RBC) [Ratio] 41.4 fl 35.1-43.9 [facility] Hematocrit Auto (Bld) [Volum e fraction]Ordered By: Darrel Watts on 12-05-2024 Hematocrit (Bld) [Volume fraction] 29.2 % Low 40-54 [facility] Hemoglobin measurementOrdere d By: Darrel Watts on 12-05-2024 Hemoglobin (Bld) [Mass/Vol] 10.0 g/dL Low 13.0-16.5 [facility] Immature granulocytes/100 WB C Auto (Bld)Ordered By: Darrel Watts on 12-05-2024 Immature granulocytes/100 WBC (Bld) 0.300 % 0.0-0.9 [facility] Comment on above: IG% - Immature Granu locytes (promyelocytes, myelocytes and metamyelocytes) > 1% indicates that a LEFT SHIFT is Present. Immunohistochemical Stainson 12-05-2024 Immunohistochemical Stains Normal [facility] Comment on above: Performed By: #### P IMCA ####[facility] [address] [place], [place], [id number] International normalized rat io (INR) calculationOrdered By: Darrel Watts on 12-05-2024 INR Coag (Bld) [Relative time] 1.1 {INR} [facility] MCV (mean corpuscular volume ) determinationOrdered By: Darrel Watts on 12-05-2024 MCV (RBC) [Entitic vol] 88.8 fL 80-94 [facility] Mean corpuscular hemoglobin (MCH) determinationOrdered By: Darrel Watts on 12-05-2024 MCH (RBC) [Entitic mass] 30.4 pg 27.0-32.0 [facility] Mean corpuscular hemoglobin concentration (MCHC) determinationOrdered By: Darrel Watts on 12-05-2024 MCHC (RBC) [Mass/Vol] 34.2 g/dL 32-[address] [facility] Mean platelet volume determi nationOrdered By: Darrel Watts on 12-05-2024 Platelet mean volume (Bld) [Entitic vol] 8.8 fL 6.2-12.0 [facility] Monocyte percentageOrdered B y: Darrel Watts on 12-05-2024 Monocytes/100 WBC (Bld) 10.8 % High 0-10 [facility] Neutrophil percentageOrdered By: Darrel Watts on 12-05-2024 Neutrophils/100 WBC (Bld) 74.2 % High 47-70 [facility] Nucleated red blood cell per centageOrdered By: Darrel Watts on 12-05-2024 Nucleated RBC/100 WBC (Bld) [Ratio] 0 % 0-5 [facility] Partial Thromboplast Timeon 12-05-2024 aPTT Coag (Bld) [Time] 34.0 s Normal 24.1-36.2 [facility] Comment on above: Performed By: #### L 300.4310, L300.3900, L100.0100 ####[facility] [address] [place], [address] Platelet countOrdered By: Gopi Watts on 12-05-2024 Platelets (Bld) [#/Vol] 334 10*3/uL 150-450 [facility] Prothrombin Time w/INRon INR Coag (PPP) [Relative time] 1.1 {INR} Normal [facility] Comment on above: Performed By: #### L 300.4310, L300.3900, L100.0100 ####[facility] [address] [place], [address] PT Coag (PPP) [Time] 14.0 s Normal 11.7-14.9 [facility] Comment on above: Performed By: #### L 300.4310, L300.3900, L100.0100 ####[facility] [address] [place], [address] Prothrombin timeOrdered By: Darrel Watts on 12-05-2024 PT Coag (PPP) [Time] 14.0 s 11.7-14.9 [facility] RBC Auto (Bld) [#/Vol]Ordere d By: Darrel Watts on 12-05-2024 RBC (Bld) [#/Vol] 3.29 10*6/uL Low 4.6-6.2 [facility] White blood cell (WBC) count Ordered By: Darrel Watts on 12-05-2024 WBC (Bld) [#/Vol] 7.5 10*3/uL 4.4-11.0 [facility] Gastroenterology Visit Repor ton 12-04-2024 Gastroenterology Visit Report Normal [facility] Chest WITH Contraston 2024 Chest WITH Contrast Normal [facility] Echo Complete W/ Contraston 11-28-2024 Echo Complete W/ Contrast Normal [facility] Oncology Visit Reporton 11-01 Oncology Visit Report Normal [facility] Absolute lymphocyte countOrd ered By: Neville Jang on 11-20-2024 Lymphocytes Auto (Unsp spec) [#/Vol] 1.21 10*3/uL 0.83-4.51 [facility] Absolute neutrophil countOrd ered By: Neville Jang on 11-20-2024 Neutrophils (Bld) [#/Vol] 7.6 10*3/uL 2.0-7.7 [facility] Automated lymphocyte count a s percentage of total leukocytesOrdered By: Neville Jang on 11-20-2024 Lymphocytes/100 WBC Auto (Unsp spec) 12.0 % Low 19-41 [facility] Basophil percentageOrdered B y: Neville Jang on 11-20-2024 Basophils/100 WBC (Bld) 0.3 % 0-1 [facility] CBC W/Diff, Automatedon 10-31 Absolute Lymph 1.21 X10 3/uL Normal 0.83-4.51 [facility] Comment on above: Performed By: #### L 100.0100 ####[facility] [address] [place], [address] Absolute Neut 7.6 X10 3/uL Normal 2.0-7.7 [facility] Comment on above: Performed By: #### L 100.0100 ####[facility] [address] [place], [address] Basophils/100 WBC (Bld) 0.3 % Normal 0-1 [facility] Comment on above: Performed By: #### L 100.0100 ####[facility] [address] [place], [address] Eosinophils/100 WBC (Bld) 1.7 % Normal 0-5 [facility] Comment on above: Performed By: #### L 100.0100 ####[facility] [address] [place], [address] Erythrocyte distribution width (RBC) [Ratio] 12.6 % Normal 11.6-14.6 [facility] Comment on above: Performed By: #### L 100.0100 ####[facility] [address] [place], [address] Hematocrit (Bld) [Volume fraction] 29.4 % Low 40-54 [facility] Comment on above: Performed By: #### L 100.0100 ####[facility] [address] [place], [address] Hemoglobin (Bld) [Mass/Vol] 10.3 g/dL Low 13.0-16.5 [facility] Comment on above: Performed By: #### L 100.0100 ####[facility] [address] [place], [address] IG% 0.300 Normal 0.0-0.9 [facility] Comment on above: Result Comment: IG% - Immature Granulocytes (promyelocytes, myelocytes andmetamyelocytes) > 1% indicates that a LEFT SHIFT is Present. Performed By: #### L 100.0100 ####[facility] [address] [place], [address] Lymphocytes/100 WBC (Bld) 12.0 % Low 19-41 [facility] Comment on above: Performed By: #### L 100.0100 ####[facility] [address] [place], [address] MCH (RBC) [Entitic mass] 30.8 pg Normal 27.0-32.0 [facility] Comment on above: Performed By: #### L 100.0100 ####[facility] [address] [place], [address] MCHC (RBC) [Mass/Vol] 35.0 g/dL Normal 32-[address] [facility] Comment on above: Performed By: #### L 100.0100 ####[facility] [address] [place], [address] MCV (RBC) [Entitic vol] 88.0 fL Normal 80-94 [facility] Comment on above: Performed By: #### L 100.0100 ####[facility] [address] [place], [address] Monocytes/100 WBC (Bld) 10.2 % High 0-10 [facility] Comment on above: Performed By: #### L 100.0100 ####[facility] [address] [place], [address] Neutrophils/100 WBC (Bld) 75.5 % High 47-70 [facility] Comment on above: Performed By: #### L 100.0100 ####[facility] [address] [place], [address] Nucleated RBC (Bld) [#/Vol] 0 10*3/uL Normal 0-5 [facility] Comment on above: Performed By: #### L 100.0100 ####[facility] [address] [place], [address] Platelet mean volume (Bld) [Entitic vol] 8.7 fL Normal 6.2-12.0 [facility] Comment on above: Performed By: #### L 100.0100 ####[facility] [address] [place], [address] Platelets (Bld) [#/Vol] 314 10*3/uL Normal 150-450 [facility] Comment on above: Performed By: #### L 100.0100 ####[facility] [address] [place], [address] RBC (Bld) [#/Vol] 3.34 10*6/uL Low 4.6-6.2 [facility] Comment on above: Performed By: #### L 100.0100 ####[facility] [address] [place], [address] RDW SD 40.2 fl Normal 35.1-43.9 [facility] Comment on above: Performed By: #### L 100.0100 ####[facility] [address] [place], [address] WBC (Bld) [#/Vol] 10.1 10*3/uL Normal 4.4-11.0 [facility] Comment on above: Performed By: #### L 100.0100 ####[facility] [address] [place], [address] Colonoscopy Reporton Colonoscopy Report Normal [facility] Discharge Instructionon 10-31 Discharge Instruction Normal [facility] Eosinophil percentageOrdered By: Neville Jang on 11-20-2024 Eosinophils/100 WBC (Bld) 1.7 % 0-5 [facility] Erythrocyte distribution wid th (RBC) [Ratio]Ordered By: Neville Jang on 11-20-2024 Erythrocyte distribution width (RBC) [Entitic vol] 40.2 fL 35.1-43.9 [facility] Erythrocyte distribution wid th ratioOrdered By: Neville Jang on 11-20-2024 Erythrocyte distribution width (RBC) [Ratio] 12.6 % 11.6-14.6 [facility] Erythrocyte distribution wid th standard deviationOrdered By: Neville Jang on 11-20-2024 Erythrocyte distribution width (RBC) [Ratio] 40.2 fl 35.1-43.9 [facility] Hematocrit Auto (Bld) [Volum e fraction]Ordered By: Neville Jang on 11-20-2024 Hematocrit (Bld) [Volume fraction] 29.4 % Low 40-54 [facility] Hemoglobin measurementOrdere d By: Neville Jang on 11-20-2024 Hemoglobin (Bld) [Mass/Vol] 10.3 g/dL Low 13.0-16.5 [facility] Immature granulocytes/100 WB C Auto (Bld)Ordered By: Neville Jang on 11-20-2024 Immature granulocytes/100 WBC (Bld) 0.300 % 0.0-0.9 [facility] Comment on above: IG% - Immature Granu locytes (promyelocytes, myelocytes and metamyelocytes) > 1% indicates that a LEFT SHIFT is Present. Lymphocytes Auto (Unsp spec) [#/Vol]Ordered By: Neville Jang on 11-20-2024 Lymphocytes (Bld) [#/Vol] 1.21 10*3/uL 0.83-4.51 [facility] Lymphocytes/100 WBC Auto (Un sp spec)Ordered By: Neville Jang on 11-20-2024 Lymphocytes/100 WBC (Bld) 12.0 % Low 19-41 [facility] MCV (mean corpuscular volume ) determinationOrdered By: Neville Jang on 11-20-2024 MCV (RBC) [Entitic vol] 88.0 fL 80-94 [facility] MR/ONBEAHTD6vz 11-20-2024 MR/POSTOPAN2 Normal [facility] Mean corpuscular hemoglobin (MCH) determinationOrdered By: Neville Jang on 11-20-2024 MCH (RBC) [Entitic mass] 30.8 pg 27.0-32.0 [facility] Mean corpuscular hemoglobin concentration (MCHC) determinationOrdered By: Neville Jang on 11-20-2024 MCHC (RBC) [Mass/Vol] 35.0 g/dL 32-[address] [facility] Mean platelet volume determi nationOrdered By: Neville Jang on 11-20-2024 Platelet mean volume (Bld) [Entitic vol] 8.7 fL 6.2-12.0 [facility] Monocyte percentageOrdered B y: Neville Jang on 11-20-2024 Monocytes/100 WBC (Bld) 10.2 % High 0-10 [facility] Neutrophil percentageOrdered By: Neville Jang on 11-20-2024 Neutrophils/100 WBC (Bld) 75.5 % High 47-70 [facility] Nucleated red blood cell per centageOrdered By: Neville Jang on 11-20-2024 Nucleated RBC/100 WBC (Bld) [Ratio] 0 % 0-5 [facility] Platelet countOrdered By: Kalen Jang on 11-20-2024 Platelets (Bld) [#/Vol] 314 10*3/uL 150-450 [facility] RBC Auto (Bld) [#/Vol]Ordere d By: Neville Jang on 11-20-2024 RBC (Bld) [#/Vol] 3.34 10*6/uL Low 4.6-6.2 [facility] White blood cell (WBC) count Ordered By: Neville Jang on 11-20-2024 WBC (Bld) [#/Vol] 10.1 10*3/uL 4.4-11.0 [facility] Anion gap in Serum or Plasma Ordered By: Kelvin Schrader on 11-19-2024 Anion gap [Moles/Vol] 12 mmol/L - [facility] BUN/creatinine ratioOrdered By: Kelvin Schrader on 11-19-2024 Urea nitrogen/Creatinine [Mass ratio] 10.4 mg/mg - [facility] Basic Metabolic Profile (BMP )on 11-19-2024 BUN/CRE 10.4 RATIO Normal - [facility] Comment on above: Performed By: #### L 100.0100, L500.2500 ####[facility] [address] [place], [address] Calcium [Mass/Vol] 8.8 mg/dL Normal 7.6-11.0 [facility] Comment on above: Performed By: #### L 100.0100, L500.2500 ####[facility] [address] [place], [address] Chloride [Moles/Vol] 99 mmol/L Normal 98-108 [facility] Comment on above: Performed By: #### L 100.0100, L500.2500 ####[facility] [address] [place], [address] CO2 [Moles/Vol] 21.0 mmol/L Normal 21.0-32.0 [facility] Comment on above: Performed By: #### L 100.0100, L500.2500 ####[facility] [address] [place], [address] Creatinine [Mass/Vol] 0.95 mg/dL Normal 0.70-1.[address] [facility] Comment on above: Performed By: #### L 100.0100, L500.2500 ####[facility] [address] [place], [address] ECRCL 57.98 ml/min Normal 50-250 [facility] Comment on above: Performed By: #### L 100.0100, L500.2500 ####[facility] [address] [place], [address] GAP 12 Normal 5-15 [facility] Comment on above: Performed By: #### L 100.0100, L500.2500 ####[facility] [address] [place], [address] GFR/1.73 sq M.predicted among non-blacks MDRD (S/P/Bld) [Vol rate/Area] 81 mL/min/{1.73_m2} Normal >60 [facility] Comment on above: Result Comment: mL/m in/1.73m2 CKD-EPI Creatinine Equation (2020) Performed By: #### L 100.0100, L500.2500 ####[facility] [address] [place], [address] Glucose [Mass/Vol] 99 mg/dL Normal 70-99 [facility] Comment on above: Performed By: #### L 100.0100, L500.2500 ####[facility] [address] [place], [address] Potassium [Moles/Vol] 4.0 mmol/L Normal 3.3-5.[address] [facility] Comment on above: Performed By: #### L 100.0100, L500.2500 ####[facility] [address] [place], [address] Sodium [Moles/Vol] 132 mmol/L Low 133-145 [facility] Comment on above: Performed By: #### L 100.0100, L500.2500 ####[facility] [address] [place], [address] Urea nitrogen [Mass/Vol] 10 mg/dL Normal 4-19 [facility] Comment on above: Performed By: #### L 100.0100, L500.2500 ####[facility] [address] [place], [address] CBC W/Diff, Automatedon 10-31 Absolute Lymph 1.20 X10 3/uL Normal 0.83-4.51 [facility] Comment on above: Performed By: #### L 100.0100, L500.2500 ####[facility] [address] [place], [address] Absolute Neut 6.2 X10 3/uL Normal 2.0-7.7 [facility] Comment on above: Performed By: #### L 100.0100, L500.2500 ####[facility] [address] [place], [address] Basophils/100 WBC (Bld) 0.2 % Normal 0-1 [facility] Comment on above: Performed By: #### L 100.0100, L500.2500 ####[facility] [address] [place], [address] Eosinophils/100 WBC (Bld) 1.9 % Normal 0-5 [facility] Comment on above: Performed By: #### L 100.0100, L500.2500 ####[facility] [address] [place], [address] Erythrocyte distribution width (RBC) [Ratio] 12.5 % Normal 11.6-14.6 [facility] Comment on above: Performed By: #### L 100.0100, L500.2500 ####[facility] [address] [place], [address] Hematocrit (Bld) [Volume fraction] 32.0 % Low 40-54 [facility] Comment on above: Performed By: #### L 100.0100, L500.2500 ####[facility] [address] [place], [address] Hemoglobin (Bld) [Mass/Vol] 10.9 g/dL Low 13.0-16.5 [facility] Comment on above: Performed By: #### L 100.0100, L500.2500 ####[facility] [address] [place], [address] IG% 0.400 Normal 0.0-0.9 [facility] Comment on above: Result Comment: IG% - Immature Granulocytes (promyelocytes, myelocytes andmetamyelocytes) > 1% indicates that a LEFT SHIFT is Present. Performed By: #### L 100.0100, L500.2500 ####[facility] [address] [place], [address] Lymphocytes/100 WBC (Bld) 14.2 % Low 19-41 [facility] Comment on above: Performed By: #### L 100.0100, L500.2500 ####[facility] [address] [place], [address] MCH (RBC) [Entitic mass] 30.4 pg Normal 27.0-32.0 [facility] Comment on above: Performed By: #### L 100.0100, L500.2500 ####[facility] [address] [place], [address] MCHC (RBC) [Mass/Vol] 34.1 g/dL Normal 32-[address] [facility] Comment on above: Performed By: #### L 100.0100, L500.2500 ####[facility] [address] [place], [address] MCV (RBC) [Entitic vol] 89.1 fL Normal 80-94 [facility] Comment on above: Performed By: #### L 100.0100, L500.2500 ####[facility] [address] [place], [address] Monocytes/100 WBC (Bld) 10.0 % Normal 0-10 [facility] Comment on above: Performed By: #### L 100.0100, L500.2500 ####[facility] [address] [place], [address] Neutrophils/100 WBC (Bld) 73.3 % High 47-70 [facility] Comment on above: Performed By: #### L 100.0100, L500.2500 ####[facility] [address] [place], [address] Nucleated RBC (Bld) [#/Vol] 0 10*3/uL Normal 0-5 [facility] Comment on above: Performed By: #### L 100.0100, L500.2500 ####[facility] [address] [place], [address] Platelet mean volume (Bld) [Entitic vol] 9.2 fL Normal 6.2-12.0 [facility] Comment on above: Performed By: #### L 100.0100, L500.2500 ####[facility] [address] [place], [address] Platelets (Bld) [#/Vol] 353 10*3/uL Normal 150-450 [facility] Comment on above: Performed By: #### L 100.0100, L500.2500 ####[facility] [address] [place], [address] RBC (Bld) [#/Vol] 3.59 10*6/uL Low 4.6-6.2 [facility] Comment on above: Performed By: #### L 100.0100, L500.2500 ####[facility] [address] [place], [address] RDW SD 41.0 fl Normal 35.1-43.9 [facility] Comment on above: Performed By: #### L 100.0100, L500.2500 ####[facility] [address] [place], [address] WBC (Bld) [#/Vol] 8.4 10*3/uL Normal 4.4-11.0 [facility] Comment on above: Performed By: #### L 100.0100, L500.2500 ####[facility] [address] [place], [address] Carbon dioxide, total [Moles /volume] in Central venous bloodOrdered By: Kelvin Schrader on 11-19-2024 CO2 [Moles/Vol] 21.0 mmol/L 21.0-32.0 [facility] Chloride assayOrdered By: Marybel Schrader on 11-19-2024 Chloride [Moles/Vol] 99 mmol/L 98-108 [facility] Estimation of creatinine dunia aranceOrdered By: Kelvin Schrader on 11-19-2024 Estimated Creatinine Clearance Calc 57.98 ml/min 50-250 [facility] GFR/1.73 sq M.predicted gregg g non-blacks MDRD (S/P/Bld) [Vol rate/Area]Ordered By: Kelvin Schrader on 11-19-2024 Estimated GFR (MDRD) Non-Af Amer 81 >60 [facility] Comment on above: mL/min/1.73m2 CKD-EP I Creatinine Equation (2020) Glomerular filtration rate ( GFR) estimation/1.73 sq m using serum, plasma, or whole bOrdered By: Kelvin Schrader on 11-19-2024 GFR/1.73 sq M.predicted among non-blacks MDRD (S/P/Bld) [Vol rate/Area] 81 mL/min/{1.73_m2} >60 [facility] Comment on above: mL/min/1.73m2 CKD-EP I Creatinine Equation (2020) MR/CON.PCM.GIon 11-19-2024 MR/CON.PCM.GI Normal [facility] MR/POSTOP.ANEon 11-19-2024 MR/POSTOP.ANE [facility] Potassium (Unsp spec) [Mass/ Vol]Ordered By: Kelvin Schrader on 11-19-2024 Potassium [Moles/Vol] 4.0 mmol/L 3.3-5.[address] [facility] Potassium measurement (mass/ volume)Ordered By: Kelvin Schrader on 11-19-2024 Potassium (Unsp spec) [Mass/Vol] 4.0 mmol/L 3.3-5.1 [facility] Serum creatinine measurement (mass/volume)Ordered By: Kelvin Schrader on 11-19-2024 Creatinine [Mass/Vol] 0.95 mg/dL 0.70-1.[address] [facility] Serum glucose measurement (m ass/volume)Ordered By: Kelvin Schrader on 11-19-2024 Glucose [Mass/Vol] 99 mg/dL 70-99 [facility] Serum or plasma calcium shagufta urement (mass/volume)Ordered By: Kelvin Schrader on 11-19-2024 Calcium [Mass/Vol] 8.8 mg/dL 7.6-11.0 [facility] Serum or plasma urea nitroge n measurement (mass/volume)Ordered By: Kelvin Schrader on 11-19-2024 Urea nitrogen [Mass/Vol] 10 mg/dL 11-17 [facility] Sodium levelOrdered By: Vernon Schrader on 11-19-2024 Sodium [Moles/Vol] 132 mmol/L Low 133-145 [facility] Abdomen/Pelvis W IV Cont ONL Yon 11-18-2024 Abdomen/Pelvis W IV Cont ONLY Normal [facility] Absolute neutrophil countOrd ered By: Radha Damon on 11-18-2024 Neutrophils (Bld) [#/Vol] 5.7 10*3/uL 2.0-7.7 [facility] Anion gap in Serum or Plasma Ordered By: Radha Damon on 11-18-2024 Anion gap [Moles/Vol] 11 mmol/L 12-[address] [facility] BUN/creatinine ratioOrdered By: Radha Damon on 11-18-2024 Urea nitrogen/Creatinine [Mass ratio] 13.7 mg/mg 05-20 [facility] Basic Metabolic Profile (BMP )on 11-18-2024 BUN/CRE 13.7 RATIO Normal 05-20 [facility] Comment on above: Performed By: #### L 500.2500, L100.0100 ####[facility] [address] [place], [address] Calcium [Mass/Vol] 8.9 mg/dL Normal 7.6-11.0 [facility] Comment on above: Performed By: #### L 500.2500, L100.0100 ####[facility] [address] [place], [address] Chloride [Moles/Vol] 95 mmol/L Low 98-108 [facility] Comment on above: Performed By: #### L 500.2500, L100.0100 ####[facility] [address] [place], [address] CO2 [Moles/Vol] 24.0 mmol/L Normal 21.0-32.0 [facility] Comment on above: Performed By: #### L 500.2500, L100.0100 ####[facility] [address] [place], [address] Creatinine [Mass/Vol] 1.02 mg/dL Normal 0.70-1.[address] [facility] Comment on above: Performed By: #### L 500.2500, L100.0100 ####[facility] [address] [place], [address] ECRCL 54.00 ml/min Normal 50-250 [facility] Comment on above: Performed By: #### L 500.2500, L100.0100 ####[facility] [address] [place], [address] GAP 11 Normal 5-15 [facility] Comment on above: Performed By: #### L 500.2500, L100.0100 ####[facility] [address] [place], [address] GFR/1.73 sq M.predicted among non-blacks MDRD (S/P/Bld) [Vol rate/Area] 74 mL/min/{1.73_m2} Normal >60 [facility] Comment on above: Result Comment: mL/m in/1.73m2 CKD-EPI Creatinine Equation (2020) Performed By: #### L 500.2500, L100.0100 ####[facility] [address] [place], [address] Glucose [Mass/Vol] 104 mg/dL High 70-99 [facility] Comment on above: Performed By: #### L 500.2500, L100.0100 ####[facility] [address] [place], [address] Potassium [Moles/Vol] 4.1 mmol/L Normal 3.3-5.[address] [facility] Comment on above: Performed By: #### L 500.2500, L100.0100 ####[facility] [address] [place], [address] Sodium [Moles/Vol] 130 mmol/L Low 133-145 [facility] Comment on above: Performed By: #### L 500.2500, L100.0100 ####[facility] [address] [place], [address] Urea nitrogen [Mass/Vol] 14 mg/dL Normal 4-19 [facility] Comment on above: Performed By: #### L 500.2500, L100.0100 ####[facility] [address] [place], [address] Basophil percentageOrdered B y: Radha Damon on 11-18-2024 Basophils/100 WBC (Bld) 0.3 % 0-1 [facility] CBC W/Diff, Automatedon 10-31 0-2024 Absolute Lymph 1.14 X10 3/uL Normal 0.83-4.51 [facility] Comment on above: Performed By: #### L 500.2500, L100.0100 ####[facility] [address] [place], [address] Absolute Neut 5.7 X10 3/uL Normal 2.0-7.7 [facility] Comment on above: Performed By: #### L 500.2500, L100.0100 ####[facility] [address] [place], [address] Basophils/100 WBC (Bld) 0.3 % Normal 0-1 [facility] Comment on above: Performed By: #### L 500.2500, L100.0100 ####[facility] [address] [place], [address] Eosinophils/100 WBC (Bld) 1.8 % Normal 0-5 [facility] Comment on above: Performed By: #### L 500.2500, L100.0100 ####[facility] [address] [place], [address] Erythrocyte distribution width (RBC) [Ratio] 12.4 % Normal 11.6-14.6 [facility] Comment on above: Performed By: #### L 500.2500, L100.0100 ####[facility] [address] [place], [address] Hematocrit (Bld) [Volume fraction] 29.1 % Low 40-54 [facility] Comment on above: Performed By: #### L 500.2500, L100.0100 ####[facility] [address] [place], [address] Hemoglobin (Bld) [Mass/Vol] 10.3 g/dL Low 13.0-16.5 [facility] Comment on above: Performed By: #### L 500.2500, L100.0100 ####[facility] [address] [place], [address] IG% 0.400 Normal 0.0-0.9 [facility] Comment on above: Result Comment: IG% - Immature Granulocytes (promyelocytes, myelocytes andmetamyelocytes) > 1% indicates that a LEFT SHIFT is Present. Performed By: #### L 500.2500, L100.0100 ####[facility] [address] [place], [address] Lymphocytes/100 WBC (Bld) 14.4 % Low 19-41 [facility] Comment on above: Performed By: #### L 500.2500, L100.0100 ####[facility] [address] [place], [address] MCH (RBC) [Entitic mass] 30.8 pg Normal 27.0-32.0 [facility] Comment on above: Performed By: #### L 500.2500, L100.0100 ####[facility] [address] [place], [address] MCHC (RBC) [Mass/Vol] 35.4 g/dL Normal 32-[address] [facility] Comment on above: Performed By: #### L 500.2500, L100.0100 ####[facility] [address] [place], [address] MCV (RBC) [Entitic vol] 87.1 fL Normal 80-94 [facility] Comment on above: Performed By: #### L 500.2500, L100.0100 ####[facility] [address] [place], [address] Monocytes/100 WBC (Bld) 11.2 % High 0-10 [facility] Comment on above: Performed By: #### L 500.2500, L100.0100 ####[facility] [address] [place], [address] Neutrophils/100 WBC (Bld) 71.9 % High 47-70 [facility] Comment on above: Performed By: #### L 500.2500, L100.0100 ####[facility] [address] [place], [address] Nucleated RBC (Bld) [#/Vol] 0 10*3/uL Normal 0-5 [facility] Comment on above: Performed By: #### L 500.2500, L100.0100 ####[facility] [address] [place], [address] Platelet mean volume (Bld) [Entitic vol] 8.6 fL Normal 6.2-12.0 [facility] Comment on above: Performed By: #### L 500.2500, L100.0100 ####[facility] [address] [place], [address] Platelets (Bld) [#/Vol] 333 10*3/uL Normal 150-450 [facility] Comment on above: Performed By: #### L 500.2500, L100.0100 ####[facility] [address] [place], [address] RBC (Bld) [#/Vol] 3.34 10*6/uL Low 4.6-6.2 [facility] Comment on above: Performed By: #### L 500.2500, L100.0100 ####[facility] [address] [place], [address] RDW SD 39.8 fl Normal 35.1-43.9 [facility] Comment on above: Performed By: #### L 500.2500, L100.0100 ####[facility] [address] [place], [address] WBC (Bld) [#/Vol] 7.9 10*3/uL Normal 4.4-11.0 [facility] Comment on above: Performed By: #### L 500.2500, L100.0100 ####[facility] [address] [place], [address] Carbon dioxide, total [Moles /volume] in Central venous bloodOrdered By: Radha Damon on 11-18-2024 CO2 [Moles/Vol] 24.0 mmol/L 21.0-32.0 [facility] Chloride assayOrdered By: Marybel Damon on 11-18-2024 Chloride [Moles/Vol] 95 mmol/L Low 98-108 [facility] Emergency Department Summary on 11-18-2024 Emergency Department Summary Normal [facility] Eosinophil percentageOrdered By: Radha Damon on 11-18-2024 Eosinophils/100 WBC (Bld) 1.8 % 0-5 [facility] Erythrocyte distribution wid th (RBC) [Ratio]Ordered By: Rdaha Damon on 11-18-2024 Erythrocyte distribution width (RBC) [Entitic vol] 39.8 fL 35.1-43.9 [facility] Erythrocyte distribution wid th ratioOrdered By: Radha Damon on 11-18-2024 Erythrocyte distribution width (RBC) [Ratio] 12.4 % 11.6-14.6 [facility] Estimation of creatinine dunia aranceOrdered By: Radha Damon on 11-18-2024 Estimated Creatinine Clearance Calc 54.00 ml/min 50-250 [facility] GFR/1.73 sq M.predicted gregg g non-blacks MDRD (S/P/Bld) [Vol rate/Area]Ordered By: Radha Damon on 11-18-2024 Estimated GFR (MDRD) Non-Af Amer 74 >60 [facility] Comment on above: mL/min/1.73m2 CKD-EP I Creatinine Equation (2020) H AND P Exam - [facility] 11-18-2024 H&P Exam - Hospitalist Normal [facility] Hematocrit Auto (Bld) [Volum e fraction]Ordered By: Radha Damon on 11-18-2024 Hematocrit (Bld) [Volume fraction] 29.1 % Low 40-54 [facility] Hemoglobin measurementOrdere d By: Radha Damon on 11-18-2024 Hemoglobin (Bld) [Mass/Vol] 10.3 g/dL Low 13.0-16.5 [facility] Immature granulocytes/100 WB C Auto (Bld)Ordered By: Radha Damon on 11-18-2024 Immature granulocytes/100 WBC (Bld) 0.400 % 0.0-0.9 [facility] Comment on above: IG% - Immature Granu locytes (promyelocytes, myelocytes and metamyelocytes) > 1% indicates that a LEFT SHIFT is Present. Lymphocytes Auto (Unsp spec) [#/Vol]Ordered By: Radha Damon on 11-18-2024 Lymphocytes (Bld) [#/Vol] 1.14 10*3/uL 0.83-4.51 [facility] Lymphocytes/100 WBC Auto (Un sp spec)Ordered By: Radha Damon on 11-18-2024 Lymphocytes/100 WBC (Bld) 14.4 % Low 19-41 [facility] MCV (mean corpuscular volume ) determinationOrdered By: Radha Damon on 11-18-2024 MCV (RBC) [Entitic vol] 87.1 fL 80-94 [facility] Mean corpuscular hemoglobin (MCH) determinationOrdered By: Radha Damon on 11-18-2024 MCH (RBC) [Entitic mass] 30.8 pg 27.0-32.0 [facility] Mean corpuscular hemoglobin concentration (MCHC) determinationOrdered By: Radha Damon on 11-18-2024 MCHC (RBC) [Mass/Vol] 35.4 g/dL 32-[address] [facility] Mean platelet volume determi nationOrdered By: Radha Damon on 11-18-2024 Platelet mean volume (Bld) [Entitic vol] 8.6 fL 6.2-12.0 [facility] Monocyte percentageOrdered B y: Radha Damon on 11-18-2024 Monocytes/100 WBC (Bld) 11.2 % High 0-10 [facility] Neutrophil percentageOrdered By: Radha Damon on 11-18-2024 Neutrophils/100 WBC (Bld) 71.9 % High 47-70 [facility] Nucleated red blood cell per centageOrdered By: Radha Damon on 11-18-2024 Nucleated RBC/100 WBC (Bld) [Ratio] 0 % 0-5 [facility] Platelet countOrdered By: Marybel Damon on 11-18-2024 Platelets (Bld) [#/Vol] 333 10*3/uL 150-450 [facility] Potassium (Unsp spec) [Mass/ Vol]Ordered By: Radha Damon on 11-18-2024 Potassium [Moles/Vol] 4.1 mmol/L 3.3-5.[address] [facility] RBC Auto (Bld) [#/Vol]Ordere d By: Radha Damon on 11-18-2024 RBC (Bld) [#/Vol] 3.34 10*6/uL Low 4.6-6.2 [facility] Serum creatinine measurement (mass/volume)Ordered By: Radha Damon on 11-18-2024 Creatinine [Mass/Vol] 1.02 mg/dL 0.70-1.[address] [facility] Serum glucose measurement (m ass/volume)Ordered By: Radha Damon on 11-18-2024 Glucose [Mass/Vol] 104 mg/dL High 70-99 [facility] Serum or plasma calcium shagufta urement (mass/volume)Ordered By: Radha Damon on 11-18-2024 Calcium [Mass/Vol] 8.9 mg/dL 7.6-11.0 [facility] Serum or plasma urea nitroge n measurement (mass/volume)Ordered By: Radha Damon on 11-18-2024 Urea nitrogen [Mass/Vol] 14 mg/dL 4-19 [facility] Sodium levelOrdered By: Seth Damon on 11-18-2024 Sodium [Moles/Vol] 130 mmol/L Low 133-145 [facility] Type AND Screenon 11-18-2024 Ab SCREEN GEL Negative Normal [facility] Comment on above: Order Comment: HGI Performed By: #### B TS ####[facility] [address] [place], [place], [address] White blood cell (WBC) count Ordered By: Radha Damon on 11-18-2024 WBC (Bld) [#/Vol] 7.9 10*3/uL 4.4-11.0 [facility] Ova and Parasites 8623on OP Normal [facility] Comment on above: Performed By: #### M 100.0605, M100.6796, M100.637, M600.5000 ####[facility] [address] [place], [place], [address] 12 Lead EKGon 11-07-2024 12 Lead EKG Normal [facility] Absolute lymphocyte countOrd ered By: Stevie Harrington on 11-07-2024 Lymphocytes Auto (Unsp spec) [#/Vol] 0.91 10*3/uL 0.83-4.51 [facility] Absolute neutrophil countOrd ered By: Stevie Harrington on 11-07-2024 Neutrophils (Bld) [#/Vol] 4.3 10*3/uL 2.0-7.7 [facility] Anion gap in Serum or Plasma Ordered By: Stevie Harrington on 11-07-2024 Anion gap [Moles/Vol] 14 mmol/L 5-[address] [facility] Automated lymphocyte count a s percentage of total leukocytesOrdered By: Stevie Harrington on 11-07-2024 Lymphocytes/100 WBC Auto (Unsp spec) 14.8 % Low 19-41 [facility] BUN/creatinine ratioOrdered By: Stevie Harrington on 11-07-2024 Urea nitrogen/Creatinine [Mass ratio] 16.0 mg/mg 10- [facility] Basic Metabolic Profile (BMP )on 11-07-2024 BUN/CRE 16.0 RATIO Normal 10- [facility] Comment on above: Performed By: #### L 500.2500, L100.0100 ####[facility] [address] [place], [address] Calcium [Mass/Vol] 8.6 mg/dL Normal 7.6-11.0 [facility] Comment on above: Performed By: #### L 500.2500, L100.0100 ####[facility] [address] [place], [address] Chloride [Moles/Vol] 96 mmol/L Low 98-108 [facility] Comment on above: Performed By: #### L 500.2500, L100.0100 ####[facility] [address] [place], [address] CO2 [Moles/Vol] 18.1 mmol/L Low 21.0-32.0 [facility] Comment on above: Performed By: #### L 500.2500, L100.0100 ####[facility] [address] [place], [address] Creatinine [Mass/Vol] 1.02 mg/dL Normal 0.70-1.[address] [facility] Comment on above: Performed By: #### L 500.2500, L100.0100 ####[facility] [address] [place], [address] ECRCL 54.00 ml/min Normal 50-250 [facility] Comment on above: Performed By: #### L 500.2500, L100.0100 ####[facility] [address] [place], [address] GAP 14 Normal 5-15 [facility] Comment on above: Performed By: #### L 500.2500, L100.0100 ####[facility] [address] [place], [address] GFR/1.73 sq M.predicted among non-blacks MDRD (S/P/Bld) [Vol rate/Area] 74 mL/min/{1.73_m2} Normal >60 [facility] Comment on above: Result Comment: mL/m in/1.73m2 CKD-EPI Creatinine Equation (2020) Performed By: #### L 500.2500, L100.0100 ####[facility] [address] [place], [address] Glucose [Mass/Vol] 92 mg/dL Normal 70-99 [facility] Comment on above: Performed By: #### L 500.2500, L100.0100 ####[facility] [address] [place], [address] Potassium [Moles/Vol] 3.8 mmol/L Normal 3.3-5.[address] [facility] Comment on above: Performed By: #### L 500.2500, L100.0100 ####[facility] [address] [place], [address] Sodium [Moles/Vol] 128 mmol/L Low 133-145 [facility] Comment on above: Performed By: #### L 500.2500, L100.0100 ####[facility] [address] [place], [address] Urea nitrogen [Mass/Vol] 16 mg/dL Normal 4-19 [facility] Comment on above: Performed By: #### L 500.2500, L100.0100 ####[facility] [address] [place], [address] Basophil percentageOrdered B y: Stevie Harrington on 11-07-2024 Basophils/100 WBC (Bld) 0.5 % 0-1 [facility] CBC W/Diff, Automatedon Absolute Lymph 0.91 X10 3/uL Normal 0.83-4.51 [facility] Comment on above: Performed By: #### L 500.2500, L100.0100 ####[facility] [address] [place], [address] Absolute Neut 4.3 X10 3/uL Normal 2.0-7.7 [facility] Comment on above: Performed By: #### L 500.2500, L100.0100 ####[facility] [address] [place], [address] Basophils/100 WBC (Bld) 0.5 % Normal 0-1 [facility] Comment on above: Performed By: #### L 500.2500, L100.0100 ####[facility] [address] [place], [address] Eosinophils/100 WBC (Bld) 1.3 % Normal 0-5 [facility] Comment on above: Performed By: #### L 500.2500, L100.0100 ####[facility] [address] [place], [address] Erythrocyte distribution width (RBC) [Ratio] 12.3 % Normal 11.6-14.6 [facility] Comment on above: Performed By: #### L 500.2500, L100.0100 ####[facility] [address] [place], [address] Hematocrit (Bld) [Volume fraction] 34.0 % Low 40-54 [facility] Comment on above: Performed By: #### L 500.2500, L100.0100 ####[facility] [address] [place], [address] Hemoglobin (Bld) [Mass/Vol] 11.9 g/dL Low 13.0-16.5 [facility] Comment on above: Performed By: #### L 500.2500, L100.0100 ####[facility] [address] [place], [address] IG% 0.500 Normal 0.0-0.9 [facility] Comment on above: Result Comment: IG% - Immature Granulocytes (promyelocytes, myelocytes andmetamyelocytes) > 1% indicates that a LEFT SHIFT is Present. Performed By: #### L 500.2500, L100.0100 ####[facility] [address] [place], [address] Lymphocytes/100 WBC (Bld) 14.8 % Low 19-41 [facility] Comment on above: Performed By: #### L 500.2500, L100.0100 ####[facility] [address] [place], [address] MCH (RBC) [Entitic mass] 30.6 pg Normal 27.0-32.0 [facility] Comment on above: Performed By: #### L 500.2500, L100.0100 ####[facility] [address] [place], [address] MCHC (RBC) [Mass/Vol] 35.0 g/dL Normal 32-[address] [facility] Comment on above: Performed By: #### L 500.2500, L100.0100 ####[facility] [address] [place], [address] MCV (RBC) [Entitic vol] 87.4 fL Normal 80-94 [facility] Comment on above: Performed By: #### L 500.2500, L100.0100 ####[facility] [address] [place], [address] Monocytes/100 WBC (Bld) 12.5 % High 0-10 [facility] Comment on above: Performed By: #### L 500.2500, L100.0100 ####[facility] [address] [place], [address] Neutrophils/100 WBC (Bld) 70.4 % High 47-70 [facility] Comment on above: Performed By: #### L 500.2500, L100.0100 ####[facility] [address] [place], [address] Nucleated RBC (Bld) [#/Vol] 0 10*3/uL Normal 0-5 [facility] Comment on above: Performed By: #### L 500.2500, L100.0100 ####[facility] [address] [place], [address] Platelet mean volume (Bld) [Entitic vol] 9.3 fL Normal 6.2-12.0 [facility] Comment on above: Performed By: #### L 500.2500, L100.0100 ####[facility] [address] [place], [address] Platelets (Bld) [#/Vol] 285 10*3/uL Normal 150-450 [facility] Comment on above: Performed By: #### L 500.2500, L100.0100 ####[facility] [address] [place], [address] RBC (Bld) [#/Vol] 3.89 10*6/uL Low 4.6-6.2 [facility] Comment on above: Performed By: #### L 500.2500, L100.0100 ####[facility] [address] [place], [address] RDW SD 39.5 fl Normal 35.1-43.9 [facility] Comment on above: Performed By: #### L 500.2500, L100.0100 ####[facility] [address] [place], [place], [address] WBC (Bld) [#/Vol] 6.2 10*3/uL Normal 4.4-11.0 [facility] Comment on above: Performed By: #### L 500.2500, L100.0100 ####[facility] [address] [facility], [address] Carbon dioxide, total [Moles /volume] in Central venous bloodOrdered By: Stevie Harrington on 11-07-2024 CO2 [Moles/Vol] 18.1 mmol/L Low 21.0-32.0 [facility] Chloride assayOrdered By: Brant Harrington on 11-07-2024 Chloride [Moles/Vol] 96 mmol/L Low 98-108 [facility] Electrocardiogram reportOrde red By: Adrian Flores on 11-07-2024 EKG study [facility] Cardiovascular Services [address] [place] [address] 12 Lead EKG 11/07/24 0553 MR#: [id number] Acct: [id number] Name: JARED RAYMOND Rep #:[id number] : 1945 79 From: Adrian Flores MD Attending Dr: Dr. Stevie Harrington, DO Status: ADM IN Ordering Dr: Steven Ann MD Date: 04/25 Location: U Sex: M C Admitted: 11/06/24 Test Reason : AM EKG Blood Pressure : */* mmHG Vent. Rate : 84 BPM Atrial Rate : 84 BPM P-R Int : 160 ms QRS Dur : 96 ms QT Int : 386 ms P-R-T Axes : 39 16 82 degrees QTcB Int : 456 ms Normal sinus rhythm Incomplete right bundle branch block Nonspecific ST abnormality Abnormal ECG When compared with ECG of 08-Jun-2024 12:26, No significant change was found Confirmed by ADRIAN FLORES MD ([id number]), able bodied seaman ELIZ LOPEZ ([id number]) on 11/07/2024 1:45:42 PM Referred By: Confirmed By: ADRIAN FLORES MD 11/07/24 1345 Date _ Adrian Flores MD CC: CITY ASSESSOR-C Mariela Olson; Dr. Steven Ann MD; Dr. Stevie Harrington, DO ~ Signed [facility] Work Phone: Eosinophil percentageOrdered By: Stevie Harrington on 11-07-2024 Eosinophils/100 WBC (Bld) 1.3 % 0-5 [facility] Erythrocyte distribution wid th (RBC) [Ratio]Ordered By: Stevie Harrington on 11-07-2024 Erythrocyte distribution width (RBC) [Entitic vol] 39.5 fL 35.1-43.9 [facility] Erythrocyte distribution wid th ratioOrdered By: Stevie Harrington on 11-07-2024 Erythrocyte distribution width (RBC) [Ratio] 12.3 % 11.6-14.6 [facility] Erythrocyte distribution wid th standard deviationOrdered By: Stevie Harrington on 11-07-2024 Erythrocyte distribution width (RBC) [Ratio] 39.5 fl 35.1-43.9 [facility] Estimation of creatinine dunia aranceOrdered By: Stevie Harrington on 11-07-2024 Estimated Creatinine Clearance Calc 54.00 ml/min 50-250 [facility] GFR/1.73 sq M.predicted gregg g non-blacks MDRD (S/P/Bld) [Vol rate/Area]Ordered By: Stevie Harrington on 11-07-2024 Estimated GFR (MDRD) Non-Af Amer 74 >60 [facility] Comment on above: mL/min/1.73m2 CKD-EP I Creatinine Equation (2020) Glomerular filtration rate ( GFR) estimation/1.73 sq m using serum, plasma, or whole bOrdered By: Stevie Harrington on 11-07-2024 GFR/1.73 sq M.predicted among non-blacks MDRD (S/P/Bld) [Vol rate/Area] 74 mL/min/{1.73_m2} >60 [facility] Comment on above: mL/min/1.73m2 CKD-EP I Creatinine Equation (2020) Hematocrit Auto (Bld) [Volum e fraction]Ordered By: Stevie Harrington on 11-07-2024 Hematocrit (Bld) [Volume fraction] 34.0 % Low 40-54 [facility] Hemoglobin measurementOrdere d By: Stevie Harrington on 11-07-2024 Hemoglobin (Bld) [Mass/Vol] 11.9 g/dL Low 13.0-16.5 [facility] Immature granulocytes/100 WB C Auto (Bld)Ordered By: Stevie Harrington on 11-07-2024 Immature granulocytes/100 WBC (Bld) 0.500 % 0.0-0.9 [facility] Comment on above: IG% - Immature Granu locytes (promyelocytes, myelocytes and metamyelocytes) > 1% indicates that a LEFT SHIFT is Present. Lymphocytes Auto (Unsp spec) [#/Vol]Ordered By: Stevie Harrington on 11-07-2024 Lymphocytes (Bld) [#/Vol] 0.91 10*3/uL 0.83-4.51 [facility] Lymphocytes/100 WBC Auto (Un sp spec)Ordered By: Stevie Harrington on 11-07-2024 Lymphocytes/100 WBC (Bld) 14.8 % Low 19-41 [facility] MCV (mean corpuscular volume ) determinationOrdered By: Stevie Harrington on 11-07-2024 MCV (RBC) [Entitic vol] 87.4 fL 80-94 [facility] Mean corpuscular hemoglobin (MCH) determinationOrdered By: Stevie Harrington on 11-07-2024 MCH (RBC) [Entitic mass] 30.6 pg 27.0-32.0 [facility] Mean corpuscular hemoglobin concentration (MCHC) determinationOrdered By: Stevie Harrington on 11-07-2024 MCHC (RBC) [Mass/Vol] 35.0 g/dL 32-[address] [facility] Mean platelet volume determi nationOrdered By: Stevie Harrington on 11-07-2024 Platelet mean volume (Bld) [Entitic vol] 9.3 fL 6.2-12.0 [facility] Monocyte percentageOrdered B y: Stevie Harrington on 11-07-2024 Monocytes/100 WBC (Bld) 12.5 % High 0-10 [facility] Neutrophil percentageOrdered By: Stevie Harrington on 11-07-2024 Neutrophils/100 WBC (Bld) 70.4 % High 47-70 [facility] Nucleated red blood cell per centageOrdered By: Stevie Harrington on 11-07-2024 Nucleated RBC/100 WBC (Bld) [Ratio] 0 % 0-5 [facility] Platelet countOrdered By: Brant Harrington on 11-07-2024 Platelets (Bld) [#/Vol] 285 10*3/uL 150-450 [facility] Potassium (Unsp spec) [Mass/ Vol]Ordered By: Stevie Harrington on 11-07-2024 Potassium [Moles/Vol] 3.8 mmol/L 3.3-5.[address] [facility] Potassium measurement (mass/ volume)Ordered By: Stevie Harrington on 11-07-2024 Potassium (Unsp spec) [Mass/Vol] 3.8 mmol/L 3.3-5.1 [facility] RBC Auto (Bld) [#/Vol]Ordere d By: Stevie Harrington on 11-07-2024 RBC (Bld) [#/Vol] 3.89 10*6/uL Low 4.6-6.2 [facility] Serum creatinine measurement (mass/volume)Ordered By: Stevie Harrington on 11-07-2024 Creatinine [Mass/Vol] 1.02 mg/dL 0.70-1.[address] [facility] Serum glucose measurement (m ass/volume)Ordered By: Stevie Harrington on 11-07-2024 Glucose [Mass/Vol] 92 mg/dL 70-99 [facility] Serum or plasma calcium shagufta urement (mass/volume)Ordered By: Stevie Harrington on 11-07-2024 Calcium [Mass/Vol] 8.6 mg/dL 7.6-11.0 [facility] Serum or plasma urea nitroge n measurement (mass/volume)Ordered By: Stevie Harrington on 11-07-2024 Urea nitrogen [Mass/Vol] 16 mg/dL 4-19 [facility] Sodium levelOrdered By: Stevie Harrington on 11-07-2024 Sodium [Moles/Vol] 128 mmol/L Low 133-145 [facility] White blood cell (WBC) count Ordered By: Stevie Harrington on 11-07-2024 WBC (Bld) [#/Vol] 6.2 10*3/uL 4.4-11.0 [facility] Bilirubin, totalOrdered By: Darrel Sanders on 11-06-2024 Bilirubin [Mass/Vol] 0.64 mg/dL 0.00-1.30 [facility] C. difficile DNA BLESSING+probe Q l (Unsp spec)Ordered By: Darrel Sanders on 11-06-2024 Clostridioides difficile (PCR) [facility] CBC W/Diff, Automatedon Absolute Lymph 0.59 X10 3/uL Low 0.83-4.51 [facility] Comment on above: Performed By: #### L 100.0100 ####[facility] [address] [place], [address] Absolute Neut 5.0 X10 3/uL Normal 2.0-7.7 [facility] Comment on above: Performed By: #### L 100.0100 ####[facility] [address] [place], [address] Basophils/100 WBC (Bld) 0.3 % Normal 0-1 [facility] Comment on above: Performed By: #### L 100.0100 ####[facility] [address] [place], [address] Eosinophils/100 WBC (Bld) 0.3 % Normal 0-5 [facility] Comment on above: Performed By: #### L 100.0100 ####[facility] [address] [place], [address] Erythrocyte distribution width (RBC) [Ratio] 12.3 % Normal 11.6-14.6 [facility] Comment on above: Performed By: #### L 100.0100 ####[facility] [address] [place], [address] Hematocrit (Bld) [Volume fraction] 33.9 % Low 40-54 [facility] Comment on above: Performed By: #### L 100.0100 ####[facility] [address] [place], [address] Hemoglobin (Bld) [Mass/Vol] 11.9 g/dL Low 13.0-16.5 [facility] Comment on above: Performed By: #### L 100.0100 ####[facility] [address] [place], [address] IG% 0.300 Normal 0.0-0.9 [facility] Comment on above: Result Comment: IG% - Immature Granulocytes (promyelocytes, myelocytes andmetamyelocytes) > 1% indicates that a LEFT SHIFT is Present. Performed By: #### L 100.0100 ####[facility] [address] [place], [address] Lymphocytes/100 WBC (Bld) 9.1 % Low 19-41 [facility] Comment on above: Performed By: #### L 100.0100 ####[facility] [address] [place], [address] MCH (RBC) [Entitic mass] 31.1 pg Normal 27.0-32.0 [facility] Comment on above: Performed By: #### L 100.0100 ####[facility] [address] [place], [address] MCHC (RBC) [Mass/Vol] 35.1 g/dL Normal 32-[address] [facility] Comment on above: Performed By: #### L 100.0100 ####[facility] [address] [place], [address] MCV (RBC) [Entitic vol] 88.5 fL Normal 80-94 [facility] Comment on above: Performed By: #### L 100.0100 ####[facility] [address] [place], [address] Monocytes/100 WBC (Bld) 11.9 % High 0-10 [facility] Comment on above: Performed By: #### L 100.0100 ####[facility] [address] [place], [address] Neutrophils/100 WBC (Bld) 78.1 % High 47-70 [facility] Comment on above: Performed By: #### L 100.0100 ####[facility] [address] [place], [address] Nucleated RBC (Bld) [#/Vol] 0 10*3/uL Normal 0-5 [facility] Comment on above: Performed By: #### L 100.0100 ####[facility] [address] [place], [address] Platelet mean volume (Bld) [Entitic vol] 9.1 fL Normal 6.2-12.0 [facility] Comment on above: Performed By: #### L 100.0100 ####[facility] [address] [place], [address] Platelets (Bld) [#/Vol] 290 10*3/uL Normal 150-450 [facility] Comment on above: Performed By: #### L 100.0100 ####[facility] [address] [place], [address] RBC (Bld) [#/Vol] 3.83 10*6/uL Low 4.6-6.2 [facility] Comment on above: Performed By: #### L 100.0100 ####[facility] [address] [place], [address] RDW SD 39.8 fl Normal 35.1-43.9 [facility] Comment on above: Performed By: #### L 100.0100 ####[facility] [address] [place], [address] WBC (Bld) [#/Vol] 6.5 10*3/uL Normal 4.4-11.0 [facility] Comment on above: Performed By: #### L 100.0100 ####[facility] [address] [place], [address] Absolute Lymph 1.08 X10 3/uL Normal 0.83-4.51 [facility] Comment on above: Performed By: #### L 501.2300, L100.0100, L500.4050 ####[facility] [address] [place], [address] Absolute Neut 5.9 X10 3/uL Normal 2.0-7.7 [facility] Comment on above: Performed By: #### L 501.2300, L100.0100, L500.4050 ####[facility] [address] [place], [address] Basophils/100 WBC (Bld) 0.3 % Normal 0-1 [facility] Comment on above: Performed By: #### L 501.2300, L100.0100, L500.4050 ####[facility] [address] [place], [address] Eosinophils/100 WBC (Bld) 1.4 % Normal 0-5 [facility] Comment on above: Performed By: #### L 501.2300, L100.0100, L500.4050 ####[facility] [address] [place], [address] Erythrocyte distribution width (RBC) [Ratio] 12.2 % Normal 11.6-14.6 [facility] Comment on above: Performed By: #### L 501.2300, L100.0100, L500.4050 ####[facility] [address] [place], [address] Hematocrit (Bld) [Volume fraction] 35.2 % Low 40-54 [facility] Comment on above: Performed By: #### L 501.2300, L100.0100, L500.4050 ####[facility] [address] [place], [address] Hemoglobin (Bld) [Mass/Vol] 12.3 g/dL Low 13.0-16.5 [facility] Comment on above: Performed By: #### L 501.2300, L100.0100, L500.4050 ####[facility] [address] [place], [address] IG% 0.300 Normal 0.0-0.9 [facility] Comment on above: Result Comment: IG% - Immature Granulocytes (promyelocytes, myelocytes andmetamyelocytes) > 1% indicates that a LEFT SHIFT is Present. Performed By: #### L 501.2300, L100.0100, L500.4050 ####[facility] [address] [place], [address] Lymphocytes/100 WBC (Bld) 13.7 % Low 19-41 [facility] Comment on above: Performed By: #### L 501.2300, L100.0100, L500.4050 ####[facility] [address] [place], [address] MCH (RBC) [Entitic mass] 30.4 pg Normal 27.0-32.0 [facility] Comment on above: Performed By: #### L 501.2300, L100.0100, L500.4050 ####[facility] [address] [place], [address] MCHC (RBC) [Mass/Vol] 34.9 g/dL Normal 32-[address] [facility] Comment on above: Performed By: #### L 501.2300, L100.0100, L500.4050 ####[facility] [address] [place], [address] MCV (RBC) [Entitic vol] 87.1 fL Normal 80-94 [facility] Comment on above: Performed By: #### L 501.2300, L100.0100, L500.4050 ####[facility] [address] [place], [address] Monocytes/100 WBC (Bld) 9.8 % Normal 0-10 [facility] Comment on above: Performed By: #### L 501.2300, L100.0100, L500.4050 ####[facility] [address] [place], [address] Neutrophils/100 WBC (Bld) 74.5 % High 47-70 [facility] Comment on above: Performed By: #### L 501.2300, L100.0100, L500.4050 ####[facility] [address] [place], [address] Nucleated RBC (Bld) [#/Vol] 0 10*3/uL Normal 0-5 [facility] Comment on above: Performed By: #### L 501.2300, L100.0100, L500.4050 ####[facility] [address] [place], [address] Platelet mean volume (Bld) [Entitic vol] 8.7 fL Normal 6.2-12.0 [facility] Comment on above: Performed By: #### L 501.2300, L100.0100, L500.4050 ####[facility] [address] [place], [address] Platelets (Bld) [#/Vol] 303 10*3/uL Normal 150-450 [facility] Comment on above: Performed By: #### L 501.2300, L100.0100, L500.4050 ####[facility] [address] [place], [address] RBC (Bld) [#/Vol] 4.04 10*6/uL Low 4.6-6.2 [facility] Comment on above: Performed By: #### L 501.2300, L100.0100, L500.4050 ####[facility] [address] [place], [address] RDW SD 39.1 fl Normal 35.1-43.9 [facility] Comment on above: Performed By: #### L 501.2300, L100.0100, L500.4050 ####[facility] [address] [place], [address] WBC (Bld) [#/Vol] 7.9 10*3/uL Normal 4.4-11.0 [facility] Comment on above: Performed By: #### L 501.2300, L100.0100, L500.4050 ####[facility] [address] [place], [address] CDIFF (PCR)on 11-06-2024 CDIFF Is the patient recei ving laxatives? N New/unexplained onset of 3 or more stools in past 24 hrs? Y 027 027 NAP1-B1 Presumptive Negative *for epidemiolologic???use C. Diff PCR Negative- No toxigenic C. Diff Detected Normal [facility] Comment on above: Performed By: #### M 100.0605, M100.6796, M100.637, M600.5000 ####[facility] [address] [place], [address] Calculated total iron bindin g capacityOrdered By: Darrel Sanders on 11-06-2024 Total Iron Binding Capacity 270 ug/dL 250-450 [facility] Clostridium difficile detect ion by polymerase chain reactionOrdered By: Darrel Sanders on 11-06-2024 C. difficile DNA BLESSING+probe Ql (Unsp spec) [facility] Colonoscopy Reporton 025 Colonoscopy Report Normal [facility] Comprehensive Metabolic Prof ilon 11-06-2024 Albumin [Mass/Vol] 3.9 g/dL Normal 3.4-4.8 [facility] Comment on above: Performed By: #### L 501.2300, L100.0100, L500.4050 ####[facility] [address] [place], [address] Albumin/Globulin [Mass ratio] 1.4 {ratio} Normal 0.9-2.4 [facility] Comment on above: Performed By: #### L 501.2300, L100.0100, L500.4050 ####[facility] [address] [place], [address] ALK PHOS 101 U/L Normal 40-129 [facility] Comment on above: Performed By: #### L 501.2300, L100.0100, L500.4050 ####[facility] [address] [place], [address] ALT [Catalytic activity/Vol] 14 U/L Normal <=46 [facility] Comment on above: Performed By: #### L 501.2300, L100.0100, L500.4050 ####[facility] [address] [place], [address] AST [Catalytic activity/Vol] 22 U/L Normal <=37 [facility] Comment on above: Performed By: #### L 501.2300, L100.0100, L500.4050 ####[facility] [address] [place], [address] Bilirubin [Mass/Vol] 0.64 mg/dL Normal 0.00-1.30 [facility] Comment on above: Performed By: #### L 501.2300, L100.0100, L500.4050 ####[facility] [address] [place], [address] BUN/CRE 14.4 RATIO Normal 10-20 [facility] Comment on above: Performed By: #### L 501.2300, L100.0100, L500.4050 ####[facility] [address] [place], [address] Calcium [Mass/Vol] 8.8 mg/dL Normal 7.6-11.0 [facility] Comment on above: Performed By: #### L 501.2300, L100.0100, L500.4050 ####[facility] [address] [place], [address] Chloride [Moles/Vol] 96 mmol/L Low 98-108 [facility] Comment on above: Performed By: #### L 501.2300, L100.0100, L500.4050 ####[facility] [address] [place], [address] CO2 [Moles/Vol] 21.7 mmol/L Normal 21.0-32.0 [facility] Comment on above: Performed By: #### L 501.2300, L100.0100, L500.4050 ####[facility] [address] [place], [address] Creatinine [Mass/Vol] 0.97 mg/dL Normal 0.70-1.[address] [facility] Comment on above: Performed By: #### L 501.2300, L100.0100, L500.4050 ####[facility] [address] [place], [address] ECRCL 56.79 ml/min Normal 50-250 [facility] Comment on above: Performed By: #### L 501.2300, L100.0100, L500.4050 ####[facility] [address] [place], [address] GAP 12 Normal 5-15 [facility] Comment on above: Performed By: #### L 501.2300, L100.0100, L500.4050 ####[facility] [address] [place], [address] GFR/1.73 sq M.predicted among non-blacks MDRD (S/P/Bld) [Vol rate/Area] 79 mL/min/{1.73_m2} Normal >60 [facility] Comment on above: Result Comment: mL/m in/1.73m2 CKD-EPI Creatinine Equation (2020) Performed By: #### L 501.2300, L100.0100, L500.4050 ####[facility] [address] [place], [address] Globulin (S) [Mass/Vol] 2.8 g/dL Normal 2.2-4.2 [facility] Comment on above: Performed By: #### L 501.2300, L100.0100, L500.4050 ####[facility] [address] [place], [address] Glucose [Mass/Vol] 99 mg/dL Normal 70-99 [facility] Comment on above: Performed By: #### L 501.2300, L100.0100, L500.4050 ####[facility] [address] [place], [address] Potassium [Moles/Vol] 4.1 mmol/L Normal 3.3-5.[address] [facility] Comment on above: Performed By: #### L 501.2300, L100.0100, L500.4050 ####[facility] [address] [place], [address] Sodium [Moles/Vol] 130 mmol/L Low 133-145 [facility] Comment on above: Performed By: #### L 501.2300, L100.0100, L500.4050 ####[facility] [address] [place], [address] T PROT 6.7 g/dL Normal 5.9-8.4 [facility] Comment on above: Performed By: #### L 501.2300, L100.0100, L500.4050 ####[facility] [address] [place], [address] Urea nitrogen [Mass/Vol] 14 mg/dL Normal 4-19 [facility] Comment on above: Performed By: #### L 501.2300, L100.0100, L500.4050 ####[facility] [address] [place], [address] ENTERIC PATHOGEN PANEL STOOL on 11-06-2024 EP PANEL Normal [facility] Comment on above: Performed By: #### M 100.0605, M100.6796, M100.637, M600.5000 ####[facility] [address] [place], [address] Emergency Department Summary on 11-06-2024 Emergency Department Summary Normal [facility] Ferritinon 11-06-2024 Ferritin [Mass/Vol] 138 ng/mL Normal 37-417 [facility] Comment on above: Performed By: #### L 501.9520, L503.6550, L503.0106, L503.6030, L501.7300 ####[facility] [address] [place], [address] H AND P Exam - Hospitaliston 11-06-2024 H&P Exam - Hospitalist Normal [facility] Iron (Unsp spec) [Mass/Mass] Ordered By: Darrel Sanders on 11-06-2024 Iron [Mass/Vol] 50 ug/dL Low 65-175 [facility] Iron measurement (mass/mass) Ordered By: Darrel Sanders on 11-06-2024 Iron (Unsp spec) [Mass/Mass] 50 ug/dL Low 65-175 [facility] Iron saturation [Mass fracti on]Ordered By: Darrel Sanders on 11-06-2024 Iron Saturation 19.0 % 9-55 [facility] Iron+Iron Binding Capacityon 11-06-2024 Iron [Mass/Vol] 50 ug/dL Low 65-175 [facility] Comment on above: Performed By: #### L 501.9520, L503.6550, L503.0106, L503.6030, L501.7300 ####[facility] [address] [place], [address] IRON SATURATION 19.0 Normal 9-55 [facility] Comment on above: Performed By: #### L 501.9520, L503.6550, L503.0106, L503.6030, L501.7300 ####[facility] [address] [place], [address] TIBC 270 ug/dL Normal 250-450 [facility] Comment on above: Performed By: #### L 501.9520, L503.6550, L503.0106, L503.6030, L501.7300 ####[facility] [address] [place], [address] UIBC 220 ug/dL Low 228-428 [facility] Comment on above: Performed By: #### L 501.9520, L503.6550, L503.0106, L503.6030, L501.7300 ####[facility] [address] [place], [address] L499.0042on 11-06-2024 Trop T High Sen 23 ng/L High <=22 [facility] Comment on above: Performed By: #### L 499.0042 ####[facility] [address] [place], [address] L499.0043on 11-06-2024 Trop T High Sen 19 ng/L Normal <=22 [facility] Comment on above: Performed By: #### L 499.0043 ####[facility] [address] [place], [address] L501.4021on 11-06-2024 Trop T High Sen 18 ng/L Normal <=22 [facility] Comment on above: Performed By: #### L 501.4021 ####[facility] [address] [place], [address] Laboratory - Chemistry and C hemistry - challengeOrdered By: Darrel Sanders on 11-06-2024 AST [Catalytic activity/Vol] 22 U/L <38 [facility] Lactoferrin IA Ql (Stl)Order ed By: Darrel Sanders on 11-06-2024 Stool Lactoferrin [facility] MR/CON.PCM.GIon 11-06-2024 MR/CON.PCM.GI Normal [facility] MR/POSTOP.ANEon 11-06-2024 MR/POSTOP.ANE Normal [facility] MR/HRSIVPDT3la 11-06-2024 MR/POSTOPAN2 Normal [facility] Magnesiumon 11-06-2024 Magnesium [Mass/Vol] 2.3 mg/dL High 1.5-2.2 [facility] Comment on above: Performed By: #### L 501.5200 ####[facility] [address] [place], [address] No Panel InformationOrdered By: Darrel Sanders on 11-06-2024 Unsaturated Iron Binding Capacity 220 ug/dL Low 228-428 [facility] 22 U/L <38 [facility] 220 ug/dL Low 228-428 [facility] Osmolality (U) [Osmolality]O rdered By: Darrel Sanders on 11-06-2024 Urine Osmolality 363 mOsm/KG >50 [facility] Comment on above: Normal Urine Referen ce Ranges Random: 50 - 1200 mOsm/kg H20 depending on fluid intake Random: >850 mOsm/kg after 12 hour fluid restriction 24 hour: ~300 - 900 mOsm/kg H2O Osmolality urOrdered By: Esdras Sanders on 11-06-2024 Osmolality (U) [Osmolality] 363 mOsm/KG >50 [facility] Comment on above: Normal Urine Referen ce Ranges Random: 50 - 1200 mOsm/kg H20 depending on fluid intake Random: >850 mOsm/kg after 12 hour fluid restriction 24 hour: ~300 - 900 mOsm/kg H2O Osmolality, Serumon 11-07-19 25 OSMOLALITY,SER 279 mOsm/KG Low 280-301 [facility] Comment on above: Performed By: #### L 501.9520, L503.6550, L503.0106, L503.6030, L501.7300 ####[facility] [address] [place], [address] Osmolality, Urineon 11-07-19 25 OSMOLALITY,UR 363 mOsm/KG Normal [facility] Comment on above: Result Comment: Norm al Urine Reference Ranges Random: 50 - 1200 mOsm/kg H20 depending on fluid intake Random: >850 mOsm/kg after 12 hour fluid restriction 24 hour: 300 - 900 mOsm/kg H2O Performed By: #### L 501.7400 ####[facility] [address] [place], [place], [address] Osmolality, serumOrdered By: Darrel Sanders on 11-06-2024 Serum Osmolality 279 mOsm/KG Low 280-301 [facility] Ova and parasitesOrdered By: Darrel Sanders on 11-06-2024 Ova and Parasites [facility] Phosphoruson 11-06-2024 Phosphate [Mass/Vol] 2.6 mg/dL Low 2.7-4.5 [facility] Comment on above: Performed By: #### L 501.2300, L100.0100, L500.4050 ####[facility] [address] [place], [place], [address] Serum globulin measurementOr dered By: Darrel Sanders on 11-06-2024 Globulin (S) [Mass/Vol] 2.8 g/dL 2.2-4.2 [facility] Serum or plasma alanine carrion otransferase (ALT) measurementOrdered By: Darrel Sanders on 11-06-2024 ALT [Catalytic activity/Vol] 14 U/L <47 [facility] Serum or plasma albumin shagufta urement (mass/volume)Ordered By: Darrel Sanders on 11-06-2024 Albumin [Mass/Vol] 3.9 g/dL 3.4-4.8 [facility] Serum or plasma albumin/glob ulin mass ratioOrdered By: Darrel Sanders on 11-06-2024 Albumin/Globulin [Mass ratio] 1.4 {ratio} 0.9-2.4 [facility] Serum or plasma alkaline airam sphatase measurementOrdered By: Darrel Sanders on 11-06-2024 ALP [Catalytic activity/Vol] 101 U/L 40-129 [facility] Serum or plasma ferritin francy surement (mass/volume)Ordered By: Darrel Sanders on 11-06-2024 Ferritin [Mass/Vol] 138 ng/mL 37-417 [facility] [facility] Serum or plasma iron saturat ion measurement (mass fraction)Ordered By: Darrel Sanders on 11-06-2024 Iron saturation [Mass fraction] 19.0 % 9-55 [facility] Serum phosphorus measurement Ordered By: Darrel Sanders on 11-06-2024 Phosphorus Level 2.6 mg/dL Low 2.7-4.5 [facility] Stool Lactoferrin/WBCon 04-0 WBCST Is the patient recei ving laxatives? N New/unexplained onset of 3 or more stools in past 24 hrs? Y Normal Reference Range = Negative Fecal WBC Lactoferrin A Positive: Fecal WBC Lactoferrin present A Normal [facility] Comment on above: Performed By: #### M 100.0605, M100.6796, M100.637, M600.5000 ####[facility] [address] [place], [address] Stool Occult Blood iFOBon STOB Positive Normal [facility] Comment on above: Performed By: #### B TS, L503.6005, L500.2500, M100.7900, L300.4310, L100.0100, L300.3900 ####[facility] [address] [place], [address] Stool enteric pathogen panel by probe and target amplification methodOrdered By: Darrel Sanders on 11-06-2024 Enteric Bacteriology [facility] Stool lactoferrin detection by immunoassayOrdered By: Darrel Sanders on 11-06-2024 Lactoferrin IA Ql (Stl) [facility] TSH DL <= 0.005 mIU/L QnOrde red By: Darrel Sanders on 11-06-2024 Thyroid Stimulating Hormone (TSH) 1.900 uIU/mL 0.300-4.200 [facility] TSH Qn 1.900 uIU/mL 0.300-4.200 [facility] Thyroid Stim Hormone (TSH)on 11-06-2024 TSH 1.900 uIU/mL Normal 0.300-4.200 [facility] Comment on above: Performed By: #### L 501.9520, L503.6550, L503.0106, L503.6030, L501.7300 ####[facility] [address] [place], [address] Total proteinOrdered By: Esdras Sanders on 11-06-2024 Protein [Mass/Vol] 6.7 g/dL 5.9-8.4 [facility] Troponin T.cardiac High sens itivity method [Mass/Vol]Ordered By: Darrel Sanders on 11-06-2024 Troponin T High Sensitivity 4 Hour 19 ng/L <22 [facility] Troponin T High Sensitivity 2 Hour 23 ng/L High <22 [facility] Troponin T High Sensitivity 18 ng/L <22 [facility] Troponin T.cardiac [Mass/vol ume] in Serum or Plasma by High sensitivity methodOrdered By: Darrel Sanders on 11-06-2024 Troponin T.cardiac High sensitivity method [Mass/Vol] 19 ng/L <22 [facility] Troponin T.cardiac High sensitivity method [Mass/Vol] 23 ng/L High <22 [facility] Troponin T.cardiac High sensitivity method [Mass/Vol] 18 ng/L <22 [facility] Vitamin B12on 11-06-2024 Cobalamin (Vitamin B12) [Mass/Vol] 790 pg/mL Normal 180-914 [facility] Comment on above: Performed By: #### L 501.9520, L503.6550, L503.0106, L503.6030, L501.7300 ####[facility] [address] [place], [address] Vitamin B12 ser/plasOrdered By: Darrel Sanders on 11-06-2024 Cobalamin (Vitamin B12) [Mass/Vol] 790 pg/mL 180-914 [facility] Absolute neutrophil countOrd ered By: Harrison Linares on 11-05-2024 Neutrophils (Bld) [#/Vol] 6.9 10*3/uL 2.0-7.7 [facility] Activated partial thrombopla stin time (aPTT) in platelet poor plasma by coagulation aOrdered By: Harrison Linares on 11-05-2024 aPTT Coag (PPP) [Time] 22.1 s Low 24.1-36.2 [facility] Anion gap in Serum or Plasma Ordered By: Harrison Linares on 11-05-2024 Anion gap [Moles/Vol] 12 mmol/L 12-[address] [facility] BUN/creatinine ratioOrdered By: Harrison Linares on 11-05-2024 Urea nitrogen/Creatinine [Mass ratio] 15.4 mg/mg 05-20 [facility] Basic Metabolic Profile (BMP )on 11-05-2024 BUN/CRE 15.4 RATIO Normal 05-20 [facility] Comment on above: Performed By: #### B TS, L503.6005, L500.2500, M100.7900, L300.4310, L100.0100, L300.3900 ####[facility] [address] [place], [address] Calcium [Mass/Vol] 9.0 mg/dL Normal 7.6-11.0 [facility] Comment on above: Performed By: #### B TS, L503.6005, L500.2500, M100.7900, L300.4310, L100.0100, L300.3900 ####[facility] [address] [place], [address] Chloride [Moles/Vol] 90 mmol/L Low 98-108 [facility] Comment on above: Performed By: #### B TS, L503.6005, L500.2500, M100.7900, L300.4310, L100.0100, L300.3900 ####[facility] [address] [place], [address] CO2 [Moles/Vol] 23.8 mmol/L Normal 21.0-32.0 [facility] Comment on above: Performed By: #### B TS, L503.6005, L500.2500, M100.7900, L300.4310, L100.0100, L300.3900 ####[facility] [address] [place], [address] Creatinine [Mass/Vol] 0.92 mg/dL Normal 0.70-1.[address] [facility] Comment on above: Performed By: #### B TS, L503.6005, L500.2500, M100.7900, L300.4310, L100.0100, L300.3900 ####[facility] [address] [place], [address] ECRCL 59.87 ml/min Normal 50-250 [facility] Comment on above: Performed By: #### B TS, L503.6005, L500.2500, M100.7900, L300.4310, L100.0100, L300.3900 ####[facility] [address] [place], [address] GAP 12 Normal 5-15 [facility] Comment on above: Performed By: #### B TS, L503.6005, L500.2500, M100.7900, L300.4310, L100.0100, L300.3900 ####[facility] [address] [place], [address] GFR/1.73 sq M.predicted among non-blacks MDRD (S/P/Bld) [Vol rate/Area] 84 mL/min/{1.73_m2} Normal >60 [facility] Comment on above: Result Comment: mL/m in/1.73m2 CKD-EPI Creatinine Equation (2020) Performed By: #### B TS, L503.6005, L500.2500, M100.7900, L300.4310, L100.0100, L300.3900 ####[facility] [address] [place], [address] Glucose [Mass/Vol] 110 mg/dL High 70-99 [facility] Comment on above: Performed By: #### B TS, L503.6005, L500.2500, M100.7900, L300.4310, L100.0100, L300.3900 ####[facility] [address] [place], [address] Potassium [Moles/Vol] 4.0 mmol/L Normal 3.3-5.[address] [facility] Comment on above: Performed By: #### B TS, L503.6005, L500.2500, M100.7900, L300.4310, L100.0100, L300.3900 ####[facility] [address] [place], [address] Sodium [Moles/Vol] 126 mmol/L Low 133-145 [facility] Comment on above: Performed By: #### B TS, L503.6005, L500.2500, M100.7900, L300.4310, L100.0100, L300.3900 ####[facility] [address] [place], [address] Urea nitrogen [Mass/Vol] 14 mg/dL Normal 4-19 [facility] Comment on above: Performed By: #### B TS, L503.6005, L500.2500, M100.7900, L300.4310, L100.0100, L300.3900 ####[facility] [address] [place], [address] Basophil percentageOrdered B y: Harrison Linares on 11-05-2024 Basophils/100 WBC (Bld) 0.2 % 0-1 [facility] CBC W/Diff, Automatedon Absolute Lymph 1.16 X10 3/uL Normal 0.83-4.51 [facility] Comment on above: Order Comment: REDRA W. PREVIOUS SPECIMEN REJECTED DUE TOCLOTTED. 11/05/242304 Quintin R Cardenas. Performed By: #### L 100.0100 ####[facility] [address] [place], [address] Absolute Neut 6.9 X10 3/uL Normal 2.0-7.7 [facility] Comment on above: Order Comment: REDRA W. PREVIOUS SPECIMEN REJECTED DUE TOCLOTTED. 11/05/242304 Quintin R Cardenas. Performed By: #### L 100.0100 ####[facility] [address] [place], [address] Basophils/100 WBC (Bld) 0.2 % Normal 0-1 [facility] Comment on above: Order Comment: REDRA W. PREVIOUS SPECIMEN REJECTED DUE TOCLOTTED. 11/05/242304 Quintin R Cardenas. Performed By: #### L 100.0100 ####[facility] [address] [place], [address] Eosinophils/100 WBC (Bld) 0.6 % Normal 0-5 [facility] Comment on above: Order Comment: REDRA W. PREVIOUS SPECIMEN REJECTED DUE TOCLOTTED. 11/05/242304 Quintin R Cardenas. Performed By: #### L 100.0100 ####[facility] [address] [place], [address] Erythrocyte distribution width (RBC) [Ratio] 12.2 % Normal 11.6-14.6 [facility] Comment on above: Order Comment: REDRA W. PREVIOUS SPECIMEN REJECTED DUE TOCLOTTED. 11/05/242304 Quintin R Cardenas. Performed By: #### L 100.0100 ####[facility] [address] [place], [address] Hematocrit (Bld) [Volume fraction] 32.9 % Low 40-54 [facility] Comment on above: Order Comment: REDRA W. PREVIOUS SPECIMEN REJECTED DUE TOCLOTTED. 11/05/242304 Quintin R Cardenas. Performed By: #### L 100.0100 ####[facility] [address] [place], [address] Hemoglobin (Bld) [Mass/Vol] 11.5 g/dL Low 13.0-16.5 [facility] Comment on above: Order Comment: REDRA W. PREVIOUS SPECIMEN REJECTED DUE TOCLOTTED. 11/05/242304 Quintin R Cardenas. Performed By: #### L 100.0100 ####[facility] [address] [place], [address] IG% 0.600 Normal 0.0-0.9 [facility] Comment on above: Order Comment: REDRA W. PREVIOUS SPECIMEN REJECTED DUE TOCLOTTED. 11/05/242304 Quintin R Cardenas. Result Comment: IG% - Immature Granulocytes (promyelocytes, myelocytes andmetamyelocytes) > 1% indicates that a LEFT SHIFT is Present. Performed By: #### L 100.0100 ####[facility] [address] [place], [address] Lymphocytes/100 WBC (Bld) 12.9 % Low 19-41 [facility] Comment on above: Order Comment: REDRA W. PREVIOUS SPECIMEN REJECTED DUE TOCLOTTED. 11/05/242304 Quintin R Cardenas. Performed By: #### L 100.0100 ####[facility] [address] [place], [address] MCH (RBC) [Entitic mass] 30.5 pg Normal 27.0-32.0 [facility] Comment on above: Order Comment: REDRA W. PREVIOUS SPECIMEN REJECTED DUE TOCLOTTED. 11/05/242304 Quintin R Cardenas. Performed By: #### L 100.0100 ####[facility] [address] [place], [address] MCHC (RBC) [Mass/Vol] 35.0 g/dL Normal 32-[address] [facility] Comment on above: Order Comment: REDRA W. PREVIOUS SPECIMEN REJECTED DUE TOCLOTTED. 11/05/242304 Quintin R Cardenas. Performed By: #### L 100.0100 ####[facility] [address] [place], [address] MCV (RBC) [Entitic vol] 87.3 fL Normal 80-94 [facility] Comment on above: Order Comment: REDRA W. PREVIOUS SPECIMEN REJECTED DUE TOCLOTTED. 11/05/242304 Quintin R Cardenas. Performed By: #### L 100.0100 ####[facility] [address] [place], [address] Monocytes/100 WBC (Bld) 8.9 % Normal 0-10 [facility] Comment on above: Order Comment: REDRA W. PREVIOUS SPECIMEN REJECTED DUE TOCLOTTED. 11/05/242304 Quintin R Cardenas. Performed By: #### L 100.0100 ####[facility] [address] [place], [address] Neutrophils/100 WBC (Bld) 76.8 % High 47-70 [facility] Comment on above: Order Comment: REDRA W. PREVIOUS SPECIMEN REJECTED DUE TOCLOTTED. 11/05/242304 Quintin R Cardenas. Performed By: #### L 100.0100 ####[facility] [address] [place], [address] Nucleated RBC (Bld) [#/Vol] 0 10*3/uL Normal 0-5 [facility] Comment on above: Order Comment: REDRA W. PREVIOUS SPECIMEN REJECTED DUE TOCLOTTED. 11/05/242304 Quintin R Cardenas. Performed By: #### L 100.0100 ####[facility] [address] [place], [address] Platelet mean volume (Bld) [Entitic vol] 8.7 fL Normal 6.2-12.0 [facility] Comment on above: Order Comment: REDRA W. PREVIOUS SPECIMEN REJECTED DUE TOCLOTTED. 11/05/242304 Quintin R Cardenas. Performed By: #### L 100.0100 ####[facility] [address] [place], [address] Platelets (Bld) [#/Vol] 274 10*3/uL Normal 150-450 [facility] Comment on above: Order Comment: REDRA W. PREVIOUS SPECIMEN REJECTED DUE TOCLOTTED. 11/05/242304 Quintin R Cardenas. Performed By: #### L 100.0100 ####[facility] [address] [place], [address] RBC (Bld) [#/Vol] 3.77 10*6/uL Low 4.6-6.2 [facility] Comment on above: Order Comment: REDRA W. PREVIOUS SPECIMEN REJECTED DUE TOCLOTTED. 11/05/242304 Quintin R Cardenas. Performed By: #### L 100.0100 ####[facility] [address] [place], [address] RDW SD 39.0 fl Normal 35.1-43.9 [facility] Comment on above: Order Comment: REDRA W. PREVIOUS SPECIMEN REJECTED DUE TOCLOTTED. 11/05/242304 Quintin R Cardenas. Performed By: #### L 100.0100 ####[facility] [address] [place], [address] WBC (Bld) [#/Vol] 9.0 10*3/uL Normal 4.4-11.0 [facility] Comment on above: Order Comment: REDRA W. PREVIOUS SPECIMEN REJECTED DUE TOCLOTTED. 11/05/242304 Quintin R Cardenas. Performed By: #### L 100.0100 ####[facility] [address] [place], [address] Absolute Neut Normal 2.0-7.7 [facility] Comment on above: Result Comment: This specimen has been REJECTED due to Laboratory criteria:Clotted.CARGABRITE has been notified of need of recollection.11/05/242304 Quintin R Cardenas Performed By: #### B TS, L503.6005, L500.2500, M100.7900, L300.4310, L100.0100, L300.3900 ####[facility] [address] [place], [address] HCT Normal 40-54 [facility] Comment on above: Result Comment: This specimen has been REJECTED due to Laboratory criteria:Clotted.CARGABRITE has been notified of need of recollection.11/05/242304 Quintin R Cardenas Performed By: #### B TS, L503.6005, L500.2500, M100.7900, L300.4310, L100.0100, L300.3900 ####[facility] [address] [place], [address] HGB Normal 13.0-16.5 [facility] Comment on above: Result Comment: This specimen has been REJECTED due to Laboratory criteria:Clotted.CARGABRITE has been notified of need of recollection.11/05/242304 Quintin R Cardenas Performed By: #### B TS, L503.6005, L500.2500, M100.7900, L300.4310, L100.0100, L300.3900 ####[facility] [address] [place], [address] MCH Normal 27.0-32.0 [facility] Comment on above: Result Comment: This specimen has been REJECTED due to Laboratory criteria:Clotted.CARGABRITE has been notified of need of recollection.11/05/242304 Quintin R Cardenas Performed By: #### B TS, L503.6005, L500.2500, M100.7900, L300.4310, L100.0100, L300.3900 ####[facility] [address] [place], [address] MCHC Normal 32-36 [facility] Comment on above: Result Comment: This specimen has been REJECTED due to Laboratory criteria:Clotted.CARGABRITE has been notified of need of recollection.11/05/242304 Quintin R Cardenas Performed By: #### B TS, L503.6005, L500.2500, M100.7900, L300.4310, L100.0100, L300.3900 ####[facility] [address] [place], [address] MCV Normal 80-94 [facility] Comment on above: Result Comment: This specimen has been REJECTED due to Laboratory criteria:Clotted.CARGABRITE has been notified of need of recollection.11/05/242304 Quintin R Cardenas Performed By: #### Marco TS, L503.6005, L500.2500, M100.7900, L300.4310, L100.0100, L300.3900 ####[facility] [address] [place], [address] NEUT% Normal 47-70 [facility] Comment on above: Result Comment: This specimen has been REJECTED due to Laboratory criteria:Clotted.CARGABRITE has been notified of need of recollection.11/05/242304 Quintin R Cardenas Performed By: #### B TS, L503.6005, L500.2500, M100.7900, L300.4310, L100.0100, L300.3900 ####[facility] [address] [place], [address] PLT Normal 150-450 [facility] Comment on above: Result Comment: This specimen has been REJECTED due to Laboratory criteria:Clotted.CARGABRITE has been notified of need of recollection.11/05/242304 Quintin R Cardenas Performed By: #### B TS, L503.6005, L500.2500, M100.7900, L300.4310, L100.0100, L300.3900 ####[facility] [address] [place], [place], [address] RBC Normal 4.6-6.2 [facility] Comment on above: Result Comment: This specimen has been REJECTED due to Laboratory criteria:Clotted.CARGABRITE has been notified of need of recollection.11/05/242304 Quintin R Cardenas Performed By: #### B TS, L503.6005, L500.2500, M100.7900, L300.4310, L100.0100, L300.3900 ####[facility] [address] [place], [place], [address] RDW CV Normal 11.6-14.6 [facility] Comment on above: Result Comment: This specimen has been REJECTED due to Laboratory criteria:Clotted.CARGABRITE has been notified of need of recollection.11/05/242304 Quintin R Cardenas Performed By: #### B TS, L503.6005, L500.2500, M100.7900, L300.4310, L100.0100, L300.3900 ####[facility] [address] [place], [place], [address] RDW SD Normal 35.1-43.9 [facility] Comment on above: Result Comment: This specimen has been REJECTED due to Laboratory criteria:Clotted.CARGABRITE has been notified of need of recollection.11/05/242304 Quintin R Cardenas Performed By: #### B TS, L503.6005, L500.2500, M100.7900, L300.4310, L100.0100, L300.3900 ####[facility] [address] [place], [place], [address] WBC Normal 4.4-11.0 [facility] Comment on above: Result Comment: This specimen has been REJECTED due to Laboratory criteria:Clotted.DEIRDRE has been notified of need of recollection.11/05/24 2305 Quintin R Cardenas Performed By: #### B TS, L503.6005, L500.2500, M100.7900, L300.4310, L100.0100, L300.3900 ####[facility] [address] [place], [place], [address] CTA Abd/Pelvis W/WO Contrast on 11-05-2024 CTA Abd/Pelvis W/WO Contrast Normal [facility] Carbon dioxide, total [Moles /volume] in Central venous bloodOrdered By: Harrison Linares on 11-05-2024 CO2 [Moles/Vol] 23.8 mmol/L 21.0-32.0 [facility] Chloride assayOrdered By: Erica Linares on 11-05-2024 Chloride [Moles/Vol] 90 mmol/L Low 98-108 [facility] Eosinophil percentageOrdered By: Harrison Linares on 11-05-2024 Eosinophils/100 WBC (Bld) 0.6 % 0-5 [facility] Erythrocyte distribution wid th (RBC) [Ratio]Ordered By: Harrison Linares on 11-05-2024 Erythrocyte distribution width (RBC) [Entitic vol] 39.0 fL 35.1-43.9 [facility] Erythrocyte distribution wid th ratioOrdered By: Harrison Linares on 11-05-2024 Erythrocyte distribution width (RBC) [Ratio] 12.2 % 11.6-14.6 [facility] Estimation of creatinine dunia aranceOrdered By: Harrison iLnares on 11-05-2024 Estimated Creatinine Clearance Calc 59.87 ml/min 50-250 [facility] GFR/1.73 sq M.predicted gregg g non-blacks MDRD (S/P/Bld) [Vol rate/Area]Ordered By: Harrison Linares on 11-05-2024 Estimated GFR (MDRD) Non-Af Amer 84 >60 [facility] Comment on above: mL/min/1.73m2 CKD-EP I Creatinine Equation (2020) Hematocrit Auto (Bld) [Volum e fraction]Ordered By: Harrison Linares on 11-05-2024 Hematocrit (Bld) [Volume fraction] 32.9 % Low 40-54 [facility] Hemoglobin measurementOrdere d By: Harrison Linares on 11-05-2024 Hemoglobin (Bld) [Mass/Vol] 11.5 g/dL Low 13.0-16.5 [facility] Immature granulocytes/100 WB C Auto (Bld)Ordered By: Harrison Linares on 11-05-2024 Immature granulocytes/100 WBC (Bld) 0.600 % 0.0-0.9 [facility] Comment on above: IG% - Immature Granu locytes (promyelocytes, myelocytes and metamyelocytes) > 1% indicates that a LEFT SHIFT is Present. International normalized rat io (INR) calculationOrdered By: Harrison Linares on 11-05-2024 INR Coag (Bld) [Relative time] 0.9 {INR} [facility] Lactic Acidon 11-05-2024 Lactate [Moles/Vol] mmol/L Normal 0.0-2.0 [facility] Comment on above: Order Comment: Y Performed By: #### B TS, L503.6005, L500.2500, M100.7900, L300.4310, L100.0100, L300.3900 ####[facility] [address] [place], [place], [id number] Lactic acid measurementOrder ed By: Harrison Linares on 11-05-2024 Lactate [Moles/Vol] mmol/L 0.0-2.0 [facility] Lower GI hemoglobin IA Ql (S tl)Ordered By: Harrison Linares on 11-05-2024 Stool Occult Blood (EDINSON) Positive Abnormal [facility] Lymphocytes Auto (Unsp spec) [#/Vol]Ordered By: Harrison Linares on 11-05-2024 Lymphocytes (Bld) [#/Vol] 1.16 10*3/uL 0.83-4.51 [facility] Lymphocytes/100 WBC Auto (Un sp spec)Ordered By: Harrison Linares on 11-05-2024 Lymphocytes/100 WBC (Bld) 12.9 % Low 19-41 [facility] MCV (mean corpuscular volume ) determinationOrdered By: Harrison Linares on 11-05-2024 MCV (RBC) [Entitic vol] 87.3 fL 80-94 [facility] Magnesium (Unsp spec) [Mass/ Vol]Ordered By: Darrel Sanders on 11-05-2024 Magnesium [Mass/Vol] 2.3 mg/dL High 1.5-2.2 [facility] Magnesium measurement (mass/ volume)Ordered By: Darrel Sanders on 11-05-2024 Magnesium (Unsp spec) [Mass/Vol] 2.3 mg/dL High 1.5-2.2 [facility] Mean corpuscular hemoglobin (MCH) determinationOrdered By: Harrison Linares on 11-05-2024 MCH (RBC) [Entitic mass] 30.5 pg 27.0-32.0 [facility] Mean corpuscular hemoglobin concentration (MCHC) determinationOrdered By: Harrison Linares on 11-05-2024 MCHC (RBC) [Mass/Vol] 35.0 g/dL 32-[address] [facility] Mean platelet volume determi nationOrdered By: Harrison Linares on 11-05-2024 Platelet mean volume (Bld) [Entitic vol] 8.7 fL 6.2-12.0 [facility] Monocyte percentageOrdered B y: Harrison Linares on 11-05-2024 Monocytes/100 WBC (Bld) 8.9 % 0-10 [facility] Neutrophil percentageOrdered By: Harrison Linares on 11-05-2024 Neutrophils/100 WBC (Bld) 76.8 % High 47-70 [facility] Nucleated red blood cell per centageOrdered By: Harrison Linares on 11-05-2024 Nucleated RBC/100 WBC (Bld) [Ratio] 0 % 0-5 [facility] Partial Thromboplast Timeon 11-05-2024 aPTT Coag (Bld) [Time] 22.1 s Low 24.1-36.2 [facility] Comment on above: Performed By: #### B TS, L503.6005, L500.2500, M100.7900, L300.4310, L100.0100, L300.3900 ####[facility] [address] [place], [address] Platelet countOrdered By: Erica Linares on 11-05-2024 Platelets (Bld) [#/Vol] 274 10*3/uL 150-450 [facility] Potassium (Unsp spec) [Mass/ Vol]Ordered By: Harrison Linares on 11-05-2024 Potassium [Moles/Vol] 4.0 mmol/L 3.3-5.[address] [facility] Prothrombin Time w/INRon INR Coag (PPP) [Relative time] 0.9 {INR} Normal [facility] Comment on above: Performed By: #### B TS, L503.6005, L500.2500, M100.7900, L300.4310, L100.0100, L300.3900 ####[facility] [address] [place], [address] PT Coag (PPP) [Time] 12.2 s Normal 11.7-14.9 [facility] Comment on above: Performed By: #### B TS, L503.6005, L500.2500, M100.7900, L300.4310, L100.0100, L300.3900 ####[facility] [address] [place], [address] Prothrombin timeOrdered By: Harrison Linares on 11-05-2024 PT Coag (PPP) [Time] 12.2 s 11.7-14.9 [facility] RBC Auto (Bld) [#/Vol]Ordere d By: Harrison Linares on 11-05-2024 RBC (Bld) [#/Vol] 3.77 10*6/uL Low 4.6-6.2 [facility] Serum creatinine measurement (mass/volume)Ordered By: Harrison Linares on 11-05-2024 Creatinine [Mass/Vol] 0.92 mg/dL 0.70-1.[address] [facility] Serum glucose measurement (m ass/volume)Ordered By: Harrison Linares on 11-05-2024 Glucose [Mass/Vol] 110 mg/dL High 70-99 [facility] [facility] Serum or plasma calcium shagufta urement (mass/volume)Ordered By: Harrison Linares on 11-05-2024 Calcium [Mass/Vol] 9.0 mg/dL 7.6-11.0 [facility] Serum or plasma urea nitroge n measurement (mass/volume)Ordered By: Harrison Linares on 11-05-2024 Urea nitrogen [Mass/Vol] 14 mg/dL 4-19 [facility] Sodium levelOrdered By: Dylan Linares on 11-05-2024 Sodium [Moles/Vol] 126 mmol/L Low 133-145 [facility] Stool gastrointestinal hemog lobin detection by immunologic methodOrdered By: Harrison Linares on 11-05-2024 Lower GI hemoglobin IA Ql (Stl) Positive Abnormal [facility] Type AND Screenon 11-05-2024 ABO and Rh group Nom (Bld) Blood group O Rh(D) positive Normal [facility] Comment on above: Order Comment: HGI Performed By: #### B TS, L503.6005, L500.2500, M100.7900, L300.4310, L100.0100, L300.3900 ####[facility] [address] [place], [place], [id number] White blood cell (WBC) count Ordered By: Harrison Linares on 11-05-2024 WBC (Bld) [#/Vol] 9.0 10*3/uL 4.4-11.0 [facility] aPTT Coag (PPP) [Time]Ordere d By: Harrison Linares on 11-05-2024 aPTT Coag (Bld) [Time] 22.1 s Low 24.1-36.2 [facility] CNPNon 11-02-2024 CNPN Telephone (HEMAWS) -- CHRISJARED Kaitlin ([id number]) 1945 M Date Time Provider Department 11/02/24 PAPI HERNANDEZ During your visit today, we recorded the following information about you: Filomena Rodrigues 11/02/2024 2:33 PM Signed Patient and his daughter stopped in to talk to Jolynn Frias. 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 Please call patients daughter Teersa [phone] Allergies As of Date: 11/02/2024 (No Known Allergies) Date Reviewed: 05/05/2020 Reviewed by: Caro Mo (Rn), RN - Fully Assessed Reason for Visit: Patient Question [5187] Prescriptions as of 01/12/2025 - amLODIPine (NORVASC) 10 mg tablet Take 0.5 tablets by mouth once daily. - metoprolol tartrate, short acting, (LOPRESSOR) 25 mg tablet Take 1.5 tablets by mouth twice daily. - aspirin, enteric coated (ECOTRIN LOW STRENGTH) 81 mg EC tablet Take 1 tablet by mouth once daily. Problem List As Of Date 11/02/2024 Noted Resolved Hypertension [I10] 10/03/2009 Chronic Right Upper Quadrant Pain [R10.11, G89.*10/03/2009 Burping [R14.2] Bloating [R14.0] Flatulence, Eructation, and Gas Pain [R14.3, R1*03/23/2010 Unspecified Esophagitis [K20.90] 03/23/2010 Acute Gastritis without Mention of Hemorrhage [*03/23/2010 Coronary artery disease involving yurok kern*07/18/2019 History of varicose veins [Z86.79] 07/18/2019 Chest pain, unspecified [R07.9] 07/18/2019 History of CVA (cerebrovascular accident) [Z86.*07/18/2019 Discharge planning issues [Z75.8] 07/18/2019 Preop testing [Z01.818] 07/18/2019 On mechanically assisted ventilation (HCC) [Z99*07/19/2019 07/20/2019 Pain, postoperative, acute [G89.18] 07/19/2019 Stress hyperglycemia [R73.9] 07/19/2019 07/21/2019 Atelectasis [J98.11] 07/20/2019 Transition of care performed with sharing of cl*07/21/2019 Encounter Status:Closed by FILOMENA RODRIGUES on 01/12/25 Normal [facility] Visit Reporton 04- Oncology Visit Report Normal [facility] Carcinoembryonic Antigenon 0 - CEA 25.2 ng/mL High 0.0-4.7 [facility] Comment on above: Order Comment: ADD O N TO BW-ALREADY IN LAB Result Comment: Nons mokers <3.9 Smokers <5.6[employer] Electrochemiluminescence Immunoassay(ECLIA)Values obtained with different assay methods or kitscannot be used interchangeably. Results cannot beinterpreted as absolute evidence of the presence orabsence of malignant disease.Performed at: [facility] Director: Jian Paredes PhD, Phone: [phone] Performed By: #### L 5398.9325 ####[facility] [address] [place], [place], [phone] Abdomen/Pelvis W IV Cont ONL Yon 10-24-2024 Abdomen/Pelvis W IV Cont ONLY Normal [facility] Absolute lymphocyte countOrd ered By: Jerry Hightower on 10-24-2024 Lymphocytes Auto (Unsp spec) [#/Vol] 1.10 10*3/uL 0.83-4.51 [facility] Absolute lymphocyte countOrd ered By: Papi Hernandez on 10-24-2024 Lymphocytes Auto (Unsp spec) [#/Vol] 1.26 10*3/uL 0.83-4.51 [facility] Absolute neutrophil countOrd ered By: Jerry Hightower on 10-24-2024 Neutrophils (Bld) [#/Vol] 6.7 10*3/uL 2.0-7.7 [facility] Absolute neutrophil countOrd ered By: Papi Hernandez on 10-24-2024 Neutrophils (Bld) [#/Vol] 6.5 10*3/uL 2.0-7.7 [facility] Anion gap in Serum or Plasma Ordered By: Jerry Hightower on 10-24-2024 Anion gap [Moles/Vol] 11 mmol/L 12-[address] [facility] Anion gap in Serum or Plasma Ordered By: Papi Hernandez on 10-24-2024 Anion gap [Moles/Vol] 9 mmol/L 12-[address] [facility] Automated lymphocyte count a s percentage of total leukocytesOrdered By: Jerry Hightower on 10-24-2024 Lymphocytes/100 WBC Auto (Unsp spec) 12.7 % Low [facility] Automated lymphocyte count a s percentage of total leukocytesOrdered By: Papi Hernandez on 10-24-2024 Lymphocytes/100 WBC Auto (Unsp spec) 14.4 % Low [facility] BUN/creatinine ratioOrdered By: Jerry Hightower on 10-24-2024 Urea nitrogen/Creatinine [Mass ratio] 11.6 mg/mg 05-20 [facility] BUN/creatinine ratioOrdered By: Papi Hernandez on 10-24-2024 Urea nitrogen/Creatinine [Mass ratio] 12.0 mg/mg 05-20 [facility] Basophil percentageOrdered B y: Jerry Hightower on 10-24-2024 Basophils/100 WBC (Bld) 0.3 % 0-1 [facility] Basophil percentageOrdered B y: Papi Hernandez on 10-24-2024 Basophils/100 WBC (Bld) 0.3 % 0-1 [facility] Bilirubin Test strip Ql (U)O rdered By: Jerry Hightower on 10-24-2024 Bilirubin Ql (U) Negative Negative [facility] Bilirubin, totalOrdered By: Jerry Hightower on 10-24-2024 Bilirubin [Mass/Vol] 0.55 mg/dL 0.00-1.30 [facility] Bilirubin, totalOrdered By: Papi Hernandez on 10-24-2024 Bilirubin [Mass/Vol] 0.50 mg/dL 0.00-1.30 [facility] CBC W/Diff, Automatedon 09-30 Absolute Lymph 1.10 X10 3/uL Normal 0.83-4.51 [facility] Comment on above: Performed By: #### L 500.4050, L501.2450, L100.0100, L503.6005 ####[facility] [address] [place], [address] Absolute Neut 6.7 X10 3/uL Normal 2.0-7.7 [facility] Comment on above: Performed By: #### L 500.4050, L501.2450, L100.0100, L503.6005 ####[facility] [address] [place], [address] Basophils/100 WBC (Bld) 0.3 % Normal 0-1 [facility] Comment on above: Performed By: #### L 500.4050, L501.2450, L100.0100, L503.6005 ####[facility] [address] [place], [address] Eosinophils/100 WBC (Bld) 1.0 % Normal 0-5 [facility] Comment on above: Performed By: #### L 500.4050, L501.2450, L100.0100, L503.6005 ####[facility] [address] [place], [address] Erythrocyte distribution width (RBC) [Ratio] 12.4 % Normal 11.6-14.6 [facility] Comment on above: Performed By: #### L 500.4050, L501.2450, L100.0100, L503.6005 ####[facility] [address] [place], [address] Hematocrit (Bld) [Volume fraction] 37.0 % Low 40-54 [facility] Comment on above: Performed By: #### L 500.4050, L501.2450, L100.0100, L503.6005 ####[facility] [address] [place], [address] Hemoglobin (Bld) [Mass/Vol] 13.1 g/dL Normal 13.0-16.5 [facility] Comment on above: Performed By: #### L 500.4050, L501.2450, L100.0100, L503.6005 ####[facility] [address] [place], [address] IG% 0.500 Normal 0.0-0.9 [facility] Comment on above: Result Comment: IG% - Immature Granulocytes (promyelocytes, myelocytes andmetamyelocytes) > 1% indicates that a LEFT SHIFT is Present. Performed By: #### L 500.4050, L501.2450, L100.0100, L503.6005 ####[facility] [address] [place], [address] Lymphocytes/100 WBC (Bld) 12.7 % Low 19-41 [facility] Comment on above: Performed By: #### L 500.4050, L501.2450, L100.0100, L503.6005 ####[facility] [address] [place], [address] MCH (RBC) [Entitic mass] 30.8 pg Normal 27.0-32.0 [facility] Comment on above: Performed By: #### L 500.4050, L501.2450, L100.0100, L503.6005 ####[facility] [address] [place], [address] MCHC (RBC) [Mass/Vol] 35.4 g/dL Normal 32-[address] [facility] Comment on above: Performed By: #### L 500.4050, L501.2450, L100.0100, L503.6005 ####[facility] [address] [place], [address] MCV (RBC) [Entitic vol] 87.1 fL Normal 80-94 [facility] Comment on above: Performed By: #### L 500.4050, L501.2450, L100.0100, L503.6005 ####[facility] [address] [place], [address] Monocytes/100 WBC (Bld) 8.4 % Normal 0-10 [facility] Comment on above: Performed By: #### L 500.4050, L501.2450, L100.0100, L503.6005 ####[facility] [address] [place], [address] Neutrophils/100 WBC (Bld) 77.1 % High 47-70 [facility] Comment on above: Performed By: #### L 500.4050, L501.2450, L100.0100, L503.6005 ####[facility] [address] [place], [address] Nucleated RBC (Bld) [#/Vol] 0 10*3/uL Normal 0-5 [facility] Comment on above: Performed By: #### L 500.4050, L501.2450, L100.0100, L503.6005 ####[facility] [address] [place], [address] Platelet mean volume (Bld) [Entitic vol] 9.0 fL Normal 6.2-12.0 [facility] Comment on above: Performed By: #### L 500.4050, L501.2450, L100.0100, L503.6005 ####[facility] [address] [place], [address] Platelets (Bld) [#/Vol] 307 10*3/uL Normal 150-450 [facility] Comment on above: Performed By: #### L 500.4050, L501.2450, L100.0100, L503.6005 ####[facility] [address] [place], [address] RBC (Bld) [#/Vol] 4.25 10*6/uL Low 4.6-6.2 [facility] Comment on above: Performed By: #### L 500.4050, L501.2450, L100.0100, L503.6005 ####[facility] [address] [place], [address] RDW SD 39.6 fl Normal 35.1-43.9 [facility] Comment on above: Performed By: #### L 500.4050, L501.2450, L100.0100, L503.6005 ####[facility] [address] [place], [address] WBC (Bld) [#/Vol] 8.7 10*3/uL Normal 4.4-11.0 [facility] Comment on above: Performed By: #### L 500.4050, L501.2450, L100.0100, L503.6005 ####[facility] [address] [place], [address] Absolute Lymph 1.26 X10 3/uL Normal 0.83-4.51 [facility] Comment on above: Performed By: #### L 900.0098, L504.2610, L100.0100, L500.4050 ####[facility] [address] [place], [address] Absolute Neut 6.5 X10 3/uL Normal 2.0-7.7 [facility] Comment on above: Performed By: #### L 900.0098, L504.2610, L100.0100, L500.4050 ####[facility] [address] [place], [address] Basophils/100 WBC (Bld) 0.3 % Normal 0-1 [facility] Comment on above: Performed By: #### L 900.0098, L504.2610, L100.0100, L500.4050 ####[facility] [address] [place], [address] Eosinophils/100 WBC (Bld) 1.6 % Normal 0-5 [facility] Comment on above: Performed By: #### L 900.0098, L504.2610, L100.0100, L500.4050 ####[facility] [address] [place], [address] Erythrocyte distribution width (RBC) [Ratio] 12.5 % Normal 11.6-14.6 [facility] Comment on above: Performed By: #### L 900.0098, L504.2610, L100.0100, L500.4050 ####[facility] [address] [place], [address] Hematocrit (Bld) [Volume fraction] 38.0 % Low 40-54 [facility] Comment on above: Performed By: #### L 900.0098, L504.2610, L100.0100, L500.4050 ####[facility] [address] [place], [address] Hemoglobin (Bld) [Mass/Vol] 13.2 g/dL Normal 13.0-16.5 [facility] Comment on above: Performed By: #### L 900.0098, L504.2610, L100.0100, L500.4050 ####[facility] [address] [place], [address] IG% 0.200 Normal 0.0-0.9 [facility] Comment on above: Result Comment: IG% - Immature Granulocytes (promyelocytes, myelocytes andmetamyelocytes) > 1% indicates that a LEFT SHIFT is Present. Performed By: #### L 900.0098, L504.2610, L100.0100, L500.4050 ####[facility] [address] [place], [address] Lymphocytes/100 WBC (Bld) 14.4 % Low 19-41 [facility] Comment on above: Performed By: #### L 900.0098, L504.2610, L100.0100, L500.4050 ####[facility] [address] [place], [address] MCH (RBC) [Entitic mass] 30.8 pg Normal 27.0-32.0 [facility] Comment on above: Performed By: #### L 900.0098, L504.2610, L100.0100, L500.4050 ####[facility] [address] [place], [address] MCHC (RBC) [Mass/Vol] 34.7 g/dL Normal 32-[address] [facility] Comment on above: Performed By: #### L 900.0098, L504.2610, L100.0100, L500.4050 ####[facility] [address] [place], [address] MCV (RBC) [Entitic vol] 88.8 fL Normal 80-94 [facility] Comment on above: Performed By: #### L 900.0098, L504.2610, L100.0100, L500.4050 ####[facility] [address] [place], [address] Monocytes/100 WBC (Bld) 9.7 % Normal 0-10 [facility] Comment on above: Performed By: #### L 900.0098, L504.2610, L100.0100, L500.4050 ####[facility] [address] [place], [address] Neutrophils/100 WBC (Bld) 73.8 % High 47-70 [facility] Comment on above: Performed By: #### L 900.0098, L504.2610, L100.0100, L500.4050 ####[facility] [address] [place], [address] Nucleated RBC (Bld) [#/Vol] 0 10*3/uL Normal 0-5 [facility] Comment on above: Performed By: #### L 900.0098, L504.2610, L100.0100, L500.4050 ####[facility] [address] [place], [address] Platelet mean volume (Bld) [Entitic vol] 8.8 fL Normal 6.2-12.0 [facility] Comment on above: Performed By: #### L 900.0098, L504.2610, L100.0100, L500.4050 ####[facility] [address] [place], [address] Platelets (Bld) [#/Vol] 299 10*3/uL Normal 150-450 [facility] Comment on above: Performed By: #### L 900.0098, L504.2610, L100.0100, L500.4050 ####[facility] [address] [place], [address] RBC (Bld) [#/Vol] 4.28 10*6/uL Low 4.6-6.2 [facility] Comment on above: Performed By: #### L 900.0098, L504.2610, L100.0100, L500.4050 ####[facility] [address] [place], [address] RDW SD 40.6 fl Normal 35.1-43.9 [facility] Comment on above: Performed By: #### L 900.0098, L504.2610, L100.0100, L500.4050 ####[facility] [address] [place], [address] WBC (Bld) [#/Vol] 8.8 10*3/uL Normal 4.4-11.0 [facility] Comment on above: Performed By: #### L 900.0098, L504.2610, L100.0100, L500.4050 ####[facility] [address], [address] Carbon dioxide, total [Moles /volume] in Central venous bloodOrdered By: Jerry Hightower on 10-24-2024 CO2 [Moles/Vol] 26.7 mmol/L 21.0-32.0 [facility] Carbon dioxide, total [Moles /volume] in Central venous bloodOrdered By: Papi Hernandez on 10-24-2024 CO2 [Moles/Vol] 26.7 mmol/L 21.0-32.0 [facility] Chloride assayOrdered By: Avinash Hightower on 10-24-2024 Chloride [Moles/Vol] 92 mmol/L Low 98-108 [facility] Chloride assayOrdered By: Santa Hernandez on 10-24-2024 Chloride [Moles/Vol] 94 mmol/L Low 98-108 [facility] Comprehensive Metabolic Prof ilon 10-24-2024 Albumin [Mass/Vol] 4.3 g/dL Normal 3.4-4.8 [facility] Comment on above: Performed By: #### L 500.4050, L501.2450, L100.0100, L503.6005 ####[facility] [address] [place], [address] Albumin/Globulin [Mass ratio] 1.4 {ratio} Normal 0.9-2.4 [facility] Comment on above: Performed By: #### L 500.4050, L501.2450, L100.0100, L503.6005 ####[facility] [address] [place], [address] ALK PHOS 103 U/L Normal 40-129 [facility] Comment on above: Performed By: #### L 500.4050, L501.2450, L100.0100, L503.6005 ####[facility] [address] [place], [address] ALT [Catalytic activity/Vol] 17 U/L Normal <=46 [facility] Comment on above: Performed By: #### L 500.4050, L501.2450, L100.0100, L503.6005 ####[facility] [address] [place], [address] AST [Catalytic activity/Vol] 27 U/L Normal <=37 [facility] Comment on above: Performed By: #### L 500.4050, L501.2450, L100.0100, L503.6005 ####[facility] [address] [place], [address] Bilirubin [Mass/Vol] 0.55 mg/dL Normal 0.00-1.30 [facility] Comment on above: Performed By: #### L 500.4050, L501.2450, L100.0100, L503.6005 ####[facility] [address] [place], [address] BUN/CRE 11.6 RATIO Normal 10-20 [facility] Comment on above: Performed By: #### L 500.4050, L501.2450, L100.0100, L503.6005 ####[facility] [address] [place], [address] Calcium [Mass/Vol] 9.2 mg/dL Normal 7.6-11.0 [facility] Comment on above: Performed By: #### L 500.4050, L501.2450, L100.0100, L503.6005 ####[facility] [address] [place], [address] Chloride [Moles/Vol] 92 mmol/L Low 98-108 [facility] Comment on above: Performed By: #### L 500.4050, L501.2450, L100.0100, L503.6005 ####[facility] [address] [place], [address] CO2 [Moles/Vol] 26.7 mmol/L Normal 21.0-32.0 [facility] Comment on above: Performed By: #### L 500.4050, L501.2450, L100.0100, L503.6005 ####[facility] [address] [place], [address] Creatinine [Mass/Vol] 0.94 mg/dL Normal 0.70-1.[address] [facility] Comment on above: Performed By: #### L 500.4050, L501.2450, L100.0100, L503.6005 ####[facility] [address] [place], [address] ECRCL 56.56 ml/min Normal 50-250 [facility] Comment on above: Performed By: #### L 500.4050, L501.2450, L100.0100, L503.6005 ####[facility] [address] [place], [address] GAP 11 Normal 5-15 [facility] Comment on above: Performed By: #### L 500.4050, L501.2450, L100.0100, L503.6005 ####[facility] [address] [place], [address] GFR/1.73 sq M.predicted among non-blacks MDRD (S/P/Bld) [Vol rate/Area] 82 mL/min/{1.73_m2} Normal >60 [facility] Comment on above: Result Comment: mL/m in/1.73m2 CKD-EPI Creatinine Equation (2020) Performed By: #### L 500.4050, L501.2450, L100.0100, L503.6005 ####[facility] [address] [place], [address] Globulin (S) [Mass/Vol] 3.0 g/dL Normal 2.2-4.2 [facility] Comment on above: Performed By: #### L 500.4050, L501.2450, L100.0100, L503.6005 ####[facility] [address] [place], [address] Glucose [Mass/Vol] 105 mg/dL High 70-99 [facility] Comment on above: Performed By: #### L 500.4050, L501.2450, L100.0100, L503.6005 ####[facility] [address] [place], [address] Potassium [Moles/Vol] 3.8 mmol/L Normal 3.3-5.[address] [facility] Comment on above: Performed By: #### L 500.4050, L501.2450, L100.0100, L503.6005 ####[facility] [address] [place], [address] Sodium [Moles/Vol] 130 mmol/L Low 133-145 [facility] Comment on above: Performed By: #### L 500.4050, L501.2450, L100.0100, L503.6005 ####[facility] [address] [place], [address] T PROT 7.3 g/dL Normal 5.9-8.4 [facility] Comment on above: Performed By: #### L 500.4050, L501.2450, L100.0100, L503.6005 ####[facility] [address] [place], [address] Urea nitrogen [Mass/Vol] 11 mg/dL Normal 4-19 [facility] Comment on above: Performed By: #### L 500.4050, L501.2450, L100.0100, L503.6005 ####[facility] [address] [place], [address] Albumin [Mass/Vol] 4.2 g/dL Normal 3.4-4.8 [facility] Comment on above: Performed By: #### L 900.0098, L504.2610, L100.0100, L500.4050 ####[facility] [address] [place], [address] Albumin/Globulin [Mass ratio] 1.4 {ratio} Normal 0.9-2.4 [facility] Comment on above: Performed By: #### L 900.0098, L504.2610, L100.0100, L500.4050 ####[facility] [address] [place], [address] ALK PHOS 100 U/L Normal 40-129 [facility] Comment on above: Performed By: #### L 900.0098, L504.2610, L100.0100, L500.4050 ####[facility] [address] [place], [address] ALT [Catalytic activity/Vol] 16 U/L Normal <=46 [facility] Comment on above: Performed By: #### L 900.0098, L504.2610, L100.0100, L500.4050 ####[facility] [address] [place], [address] AST [Catalytic activity/Vol] 27 U/L Normal <=37 [facility] Comment on above: Performed By: #### L 900.0098, L504.2610, L100.0100, L500.4050 ####[facility] [address] [place], [address] Bilirubin [Mass/Vol] 0.50 mg/dL Normal 0.00-1.30 [facility] Comment on above: Performed By: #### L 900.0098, L504.2610, L100.0100, L500.4050 ####[facility] [address] [place], [address] BUN/CRE 12.0 RATIO Normal 10-20 [facility] Comment on above: Performed By: #### L 900.0098, L504.2610, L100.0100, L500.4050 ####[facility] [address] [place], [address] Calcium [Mass/Vol] 9.2 mg/dL Normal 7.6-11.0 [facility] Comment on above: Performed By: #### L 900.0098, L504.2610, L100.0100, L500.4050 ####[facility] [address], [address] Chloride [Moles/Vol] 94 mmol/L Low 98-108 [facility] Comment on above: Performed By: #### L 900.0098, L504.2610, L100.0100, L500.4050 ####[facility] [address], [address] CO2 [Moles/Vol] 26.7 mmol/L Normal 21.0-32.0 [facility] Comment on above: Performed By: #### L 900.0098, L504.2610, L100.0100, L500.4050 ####[facility] [address] [place], [address] Creatinine [Mass/Vol] 0.90 mg/dL Normal 0.70-1.[address] [facility] Comment on above: Performed By: #### L 900.0098, L504.2610, L100.0100, L500.4050 ####[facility] [address], [address] ECRCL 61.20 ml/min Normal 50-250 [facility] Comment on above: Performed By: #### L 900.0098, L504.2610, L100.0100, L500.4050 ####[facility] [address] [place], [address] GAP 9 Normal 5-15 [facility] Comment on above: Performed By: #### L 900.0098, L504.2610, L100.0100, L500.4050 ####[facility] [facility] [address] [place], [address] GFR/1.73 sq M.predicted among non-blacks MDRD (S/P/Bld) [Vol rate/Area] 86 mL/min/{1.73_m2} Normal >60 [facility] Comment on above: Result Comment: mL/m in/1.73m2 CKD-EPI Creatinine Equation (2020) Performed By: #### L 900.0098, L504.2610, L100.0100, L500.4050 ####[facility] [address] [place], [address] Globulin (S) [Mass/Vol] 2.9 g/dL Normal 2.2-4.2 [facility] Comment on above: Performed By: #### L 900.0098, L504.2610, L100.0100, L500.4050 ####[facility] [address] [place], [address] Glucose [Mass/Vol] 107 mg/dL High 70-99 [facility] Comment on above: Performed By: #### L 900.0098, L504.2610, L100.0100, L500.4050 ####[facility] [address] [place], [address] Potassium [Moles/Vol] 4.2 mmol/L Normal 3.3-5.[address] [facility] Comment on above: Performed By: #### L 900.0098, L504.2610, L100.0100, L500.4050 ####[facility] [address] [place], [address] Sodium [Moles/Vol] 131 mmol/L Low 133-145 [facility] Comment on above: Performed By: #### L 900.0098, L504.2610, L100.0100, L500.4050 ####[facility] [address] [place], [address] T PROT 7.0 g/dL Normal 5.9-8.4 [facility] Comment on above: Performed By: #### L 900.0098, L504.2610, L100.0100, L500.4050 ####[facility] [address] [place], [address] Urea nitrogen [Mass/Vol] 11 mg/dL Normal 4-19 [facility] Comment on above: Performed By: #### L 900.0098, L504.2610, L100.0100, L500.4050 ####[facility] [address] [place], [address] Emergency Department Summary on 10-24-2024 Emergency Department Summary Normal [facility] Eosinophil percentageOrdered By: Jerry Hightower on 10-24-2024 Eosinophils/100 WBC (Bld) 1.0 % 0-5 [facility] Eosinophil percentageOrdered By: Papi Hernandez on 10-24-2024 Eosinophils/100 WBC (Bld) 1.6 % 0-5 [facility] Epithelial cells.squamous LM Ql (Urine sed)Ordered By: Jerry Hightower on 10-24-2024 Epithelial cells.squamous LM.HPF (Urine sed) [#/Area] 0 /[HPF] 0-5 [facility] Erythrocyte distribution wid th ratioOrdered By: Jerry Hightower on 10-24-2024 Erythrocyte distribution width (RBC) [Ratio] 12.4 % 11.6-14.6 [facility] Erythrocyte distribution wid th ratioOrdered By: Papi Hernandez on 10-24-2024 Erythrocyte distribution width (RBC) [Ratio] 12.5 % 11.6-14.6 [facility] Erythrocyte distribution wid th standard deviationOrdered By: Jerry Hightower on 10-24-2024 Erythrocyte distribution width (RBC) [Entitic vol] 39.6 fL 35.1-43.9 [facility] Erythrocyte distribution width (RBC) [Ratio] 39.6 fl 35.1-43.9 [facility] Erythrocyte distribution wid th standard deviationOrdered By: Papi Hernandez on 10-24-2024 Erythrocyte distribution width (RBC) [Entitic vol] 40.6 fL 35.1-43.9 [facility] Erythrocyte distribution width (RBC) [Ratio] 40.6 fl 35.1-43.9 [facility] Estimation of creatinine dunia aranceOrdered By: Jerry Hightower on 10-24-2024 Estimated Creatinine Clearance Calc 56.56 ml/min 50-250 [facility] Estimation of creatinine dunia aranceOrdered By: Papi Hernandez on 10-24-2024 Estimated Creatinine Clearance Calc 61.20 ml/min 50-250 [facility] GFR/1.73 sq M.predicted gregg g non-blacks MDRD (S/P/Bld) [Vol rate/Area]Ordered By: Jerry Hightower on 10-24-2024 Estimated GFR (MDRD) Non-Af Amer 82 >60 [facility] Comment on above: mL/min/1.73m2 CKD-EP I Creatinine Equation (2020) GFR/1.73 sq M.predicted gregg g non-blacks MDRD (S/P/Bld) [Vol rate/Area]Ordered By: Papi Hernandez on 10-24-2024 Estimated GFR (MDRD) Non-Af Amer 86 >60 [facility] Comment on above: mL/min/1.73m2 CKD-EP I Creatinine Equation (2020) Glomerular filtration rate ( GFR) estimation/1.73 sq m using serum, plasma, or whole bOrdered By: Jerry Hightower on 10-24-2024 GFR/1.73 sq M.predicted among non-blacks MDRD (S/P/Bld) [Vol rate/Area] 82 mL/min/{1.73_m2} >60 [facility] Comment on above: mL/min/1.73m2 CKD-EP I Creatinine Equation (2020) Glomerular filtration rate ( GFR) estimation/1.73 sq m using serum, plasma, or whole bOrdered By: Papi Hernandez on 10-24-2024 GFR/1.73 sq M.predicted among non-blacks MDRD (S/P/Bld) [Vol rate/Area] 86 mL/min/{1.73_m2} >60 [facility] Comment on above: mL/min/1.73m2 CKD-EP I Creatinine Equation (2020) Glucose Ql (U)Ordered By: Avinash Hightower on 10-24-2024 Urine Glucose (UA) Normal mg/dl Normal [facility] Hematocrit Auto (Bld) [Volum e fraction]Ordered By: Jerry Hightower on 10-24-2024 Hematocrit (Bld) [Volume fraction] 37.0 % Low 40-54 [facility] Hematocrit Auto (Bld) [Volum e fraction]Ordered By: Papi Hernandez on 10-24-2024 Hematocrit (Bld) [Volume fraction] 38.0 % Low 40-54 [facility] Hemoglobin measurementOrdere d By: Jerry Hightower on 10-24-2024 Hemoglobin (Bld) [Mass/Vol] 13.1 g/dL 13.0-16.5 [facility] Hemoglobin measurementOrdere d By: Papi Hernandez on 10-24-2024 Hemoglobin (Bld) [Mass/Vol] 13.2 g/dL 13.0-16.5 [facility] Immature granulocytes/100 WB C Auto (Bld)Ordered By: Jerry Hightower on 10-24-2024 Immature granulocytes/100 WBC (Bld) 0.500 % 0.0-0.9 [facility] Comment on above: IG% - Immature Granu locytes (promyelocytes, myelocytes and metamyelocytes) > 1% indicates that a LEFT SHIFT is Present. Immature granulocytes/100 WB C Auto (Bld)Ordered By: Papi Hernandez on 10-24-2024 Immature granulocytes/100 WBC (Bld) 0.200 % 0.0-0.9 [facility] Comment on above: IG% - Immature Granu locytes (promyelocytes, myelocytes and metamyelocytes) > 1% indicates that a LEFT SHIFT is Present. Ketones Test strip Ql (U)Ord ered By: Jerry Hightower on 10-24-2024 Ketones Ql (U) Negative Negative [facility] LDHon 10-24-2024 LDH 105 U/L Normal 87-241 [facility] Comment on above: Order Comment: 1 Performed By: #### L 900.0098, L504.2610, L100.0100, L500.4050 ####[facility] [address] [place], [place], [id number] Laboratory - Chemistry and C hemistry - challengeOrdered By: Jerry Hightower on 10-24-2024 AST [Catalytic activity/Vol] 27 U/L <38 [facility] Laboratory - Chemistry and C hemistry - challengeOrdered By: Papi Hernandez on 10-24-2024 AST [Catalytic activity/Vol] 27 U/L <38 [facility] Lactate dehydrogenase (LDH) measurementOrdered By: Papi Hernandez on 10-24-2024 LDH [Catalytic activity/Vol] 105 U/L 87-241 [facility] Lactic Acidon 10-24-2024 Lactate [Moles/Vol] 1.1 mmol/L Normal 0.0-2.0 [facility] Comment on above: Order Comment: Y Performed By: #### L 500.4050, L501.2450, L100.0100, L503.6005 ####[facility] [address] [place], [place], [address] Lactic acid measurementOrder ed By: Jerry Hightower on 10-24-2024 Lactate [Moles/Vol] 1.1 mmol/L 0.0-2.0 [facility] Lipaseon 10-24-2024 Lipase [Catalytic activity/Vol] 28 U/L Normal 13-75 [facility] Comment on above: Result Comment: Debi vieyra note:LIPASE revised reference range effective 22.New Lipase methodology. Expected to produce lower valuesthan the previous assay method.NEW Reference Range: 13 - 75 U/L Performed By: #### L 500.4050, L501.2450, L100.0100, L503.6005 ####[facility] [address] [place], [address] Lipase measurementOrdered By : Jerry Hightower on 10-24-2024 Lipase [Catalytic activity/Vol] 28 U/L 13-75 [facility] Comment on above: Please note:LIPASE r evised reference range effective 22. New Lipase methodology. Expected to produce lower values than the previous assay method. NEW Reference Range: 13 - 75 U/L Lymphocytes Auto (Unsp spec) [#/Vol]Ordered By: Jerry Hightower on 10-24-2024 Lymphocytes (Bld) [#/Vol] 1.10 10*3/uL 0.83-4.51 [facility] Lymphocytes Auto (Unsp spec) [#/Vol]Ordered By: Papi Hernandez on 10-24-2024 Lymphocytes (Bld) [#/Vol] 1.26 10*3/uL 0.83-4.51 [facility] Lymphocytes/100 WBC Auto (Un sp spec)Ordered By: Jerry Hightower on 10-24-2024 Lymphocytes/100 WBC (Bld) 12.7 % Low 19-41 [facility] Lymphocytes/100 WBC Auto (Un sp spec)Ordered By: Papi Hernandez on 10-24-2024 Lymphocytes/100 WBC (Bld) 14.4 % Low 19-[address] [place] [address] MCV (mean corpuscular volume ) determinationOrdered By: Jerry Hightower on 10-24-2024 MCV (RBC) [Entitic vol] 87.1 fL 80-94 [facility] MCV (mean corpuscular volume ) determinationOrdered By: Papi Hernandez on 10-24-2024 MCV (RBC) [Entitic vol] 88.8 fL 80-94 [facility] Mean corpuscular hemoglobin (MCH) determinationOrdered By: Jerry Hightower on 10-24-2024 MCH (RBC) [Entitic mass] 30.8 pg 27.0-32.0 [facility] Mean corpuscular hemoglobin (MCH) determinationOrdered By: Papi Hernandez on 10-24-2024 MCH (RBC) [Entitic mass] 30.8 pg 27.0-32.0 [facility] Mean corpuscular hemoglobin concentration (MCHC) determinationOrdered By: Jerry Hightower on 10-24-2024 MCHC (RBC) [Mass/Vol] 35.4 g/dL [facility] Mean corpuscular hemoglobin concentration (MCHC) determinationOrdered By: Papi Hernandez on 10-24-2024 MCHC (RBC) [Mass/Vol] 34.7 g/dL [facility] Mean platelet volume determi nationOrdered By: Jerry Hightower on 10-24-2024 Platelet mean volume (Bld) [Entitic vol] 9.0 fL 6.2-12.0 [facility] Mean platelet volume determi nationOrdered By: Papi Hernandez on 10-24-2024 Platelet mean volume (Bld) [Entitic vol] 8.8 fL 6.2-12.0 [facility] Microscopic analysis of urin e for red blood cells (RBC)Ordered By: Jerry Hightower on 10-24-2024 Microscopic analysis of urine for red blood cells (RBC) 0-5 SEEN /hpf 0-5 [facility] Urine RBC 0-5 SEEN /hpf 0-5 [facility] Miscellaneous procedureOrder ed By: Papi Hernandez on 10-24-2024 Miscellaneous Test Comment SEE SCANNED REPORT [facility] Monocyte percentageOrdered B y: Jerry Hightower on 10-24-2024 Monocytes/100 WBC (Bld) 8.4 % 0-10 [facility] Monocyte percentageOrdered B y: Papi Hernandez on 10-24-2024 Monocytes/100 WBC (Bld) 9.7 % 0-10 [facility] Mucus LM Ql (Urine sed)Order ed By: Jerry Hightower on 10-24-2024 Mucus Ql (Urine sed) 0 SEEN /hpf [facility] NATERAon 10-24-2024 NATURA SEE SCANNED REPORT Normal [facility] Comment on above: Performed By: #### L 900.0098, L504.2610, L100.0100, L500.4050 ####[facility] [address] [place], [address] Neutrophil percentageOrdered By: Jerry Hightower on 10-24-2024 Neutrophils/100 WBC (Bld) 77.1 % High 47-70 [facility] Neutrophil percentageOrdered By: Papi Hernandez on 10-24-2024 Neutrophils/100 WBC (Bld) 73.8 % High 47-70 [facility] Nitrite Test strip Ql (U)Ord ered By: Jerry Hightower on 10-24-2024 Nitrite Ql (U) Negative Negative [facility] No Panel InformationOrdered By: Jerry Hightower on 10-24-2024 27 U/L <38 [facility] No Panel InformationOrdered By: Papi Hernandez on 10-24-2024 27 U/L <38 [facility] Nucleated red blood cell per centageOrdered By: Jerry Hightower on 10-24-2024 Nucleated RBC/100 WBC (Bld) [Ratio] 0 % 0-5 [facility] Nucleated red blood cell per centageOrdered By: Papi Hernandez on 10-24-2024 Nucleated RBC/100 WBC (Bld) [Ratio] 0 % 0-5 [facility] Platelet countOrdered By: Avinash Hightower on 10-24-2024 Platelets (Bld) [#/Vol] 307 10*3/uL 150-450 [facility] Platelet countOrdered By: Santa Hernandez on 10-24-2024 Platelets (Bld) [#/Vol] 299 10*3/uL 150-450 [facility] Potassium (Unsp spec) [Mass/ Vol]Ordered By: Jerry Hightower on 10-24-2024 Potassium [Moles/Vol] 3.8 mmol/L 3.3-5.[address] [facility] Potassium (Unsp spec) [Mass/ Vol]Ordered By: Papi Hernandez on 10-24-2024 Potassium [Moles/Vol] 4.2 mmol/L 3.3-5.[address] [facility] Potassium measurement (mass/ volume)Ordered By: Jerry Hightower on 10-24-2024 Potassium (Unsp spec) [Mass/Vol] 3.8 mmol/L 3.3-5.1 [facility] Potassium measurement (mass/ volume)Ordered By: Papi Hernandez on 10-24-2024 Potassium (Unsp spec) [Mass/Vol] 4.2 mmol/L 3.3-5.1 [facility] Protein Test strip Ql (U)Ord ered By: Jerry Hightower on 10-24-2024 Protein Ql (U) 15 mg/dl High Negative [facility] RBC Auto (Bld) [#/Vol]Ordere d By: Jerry Hightower on 10-24-2024 RBC (Bld) [#/Vol] 4.25 10*6/uL Low 4.6-6.2 [facility] RBC Auto (Bld) [#/Vol]Ordere d By: Papi Hernandez on 10-24-2024 RBC (Bld) [#/Vol] 4.28 10*6/uL Low 4.6-6.2 [facility] Serum creatinine measurement (mass/volume)Ordered By: Jerry Hightower on 10-24-2024 Creatinine [Mass/Vol] 0.94 mg/dL 0.70-1.[address] [facility] Serum creatinine measurement (mass/volume)Ordered By: Papi Hernandez on 10-24-2024 Creatinine [Mass/Vol] 0.90 mg/dL 0.70-1.[address] [facility] Serum globulin measurementOr dered By: Jerry Hightower on 10-24-2024 Globulin (S) [Mass/Vol] 3.0 g/dL 2.2-4.2 [facility] Serum globulin measurementOr dered By: Papi Hernandez on 10-24-2024 Globulin (S) [Mass/Vol] 2.9 g/dL 2.2-4.2 [facility] Serum glucose measurement (m ass/volume)Ordered By: Jerry Hightower on 10-24-2024 Glucose [Mass/Vol] 105 mg/dL High 70-99 [facility] Serum glucose measurement (m ass/volume)Ordered By: Papi Hernandez on 10-24-2024 Glucose [Mass/Vol] 107 mg/dL High 70-99 [facility] Serum or plasma alanine carrion otransferase (ALT) measurementOrdered By: Jerry Hightower on 10-24-2024 ALT [Catalytic activity/Vol] 17 U/L <47 [facility] Serum or plasma alanine carrion otransferase (ALT) measurementOrdered By: Papi Hernandez on 10-24-2024 ALT [Catalytic activity/Vol] 16 U/L <47 [facility] Serum or plasma albumin shagufta urement (mass/volume)Ordered By: Jerry Hightower on 10-24-2024 Albumin [Mass/Vol] 4.3 g/dL 3.4-4.8 [facility] Serum or plasma albumin shagufta urement (mass/volume)Ordered By: Papi Hernandez on 10-24-2024 Albumin [Mass/Vol] 4.2 g/dL 3.4-4.8 [facility] Serum or plasma albumin/glob ulin mass ratioOrdered By: Jerry Hightower on 10-24-2024 Albumin/Globulin [Mass ratio] 1.4 {ratio} 0.9-2.4 [facility] Serum or plasma albumin/glob ulin mass ratioOrdered By: Papi Hernandez on 10-24-2024 Albumin/Globulin [Mass ratio] 1.4 {ratio} 0.9-2.4 [facility] Serum or plasma alkaline airam sphatase measurementOrdered By: Jerry Hightower on 10-24-2024 ALP [Catalytic activity/Vol] 103 U/L 40-129 [facility] Serum or plasma alkaline airam sphatase measurementOrdered By: Papi Hernandez on 10-24-2024 ALP [Catalytic activity/Vol] 100 U/L 40-129 [facility] Serum or plasma calcium shagufta urement (mass/volume)Ordered By: Jerry Hightower on 10-24-2024 Calcium [Mass/Vol] 9.2 mg/dL 7.6-11.0 [facility] Serum or plasma calcium shagufta urement (mass/volume)Ordered By: Papi Hernandez on 10-24-2024 Calcium [Mass/Vol] 9.2 mg/dL 7.6-11.0 [facility] Serum or plasma carcinoembry onic antigen measurement (mass/volume)Ordered By: Papi Hernandez on 10-24-2024 Carcinoembryonic Ag [Mass/Vol] 25.2 ng/mL High 0.0-4.7 [facility] Comment on above: Nonsmokers <3.9 Smok ers <5.6[employer] Electrochemiluminescence Immunoassay(ECLIA)Values obtained with different assay methods or kitscannot be used interchangeably. Results cannot beinterpreted as absolute evidence of the presence orabsence of malignant disease.Performed at: [facility] [id number] Director: Jian Paredes PhD, Phone: [phone] Serum or plasma urea nitroge n measurement (mass/volume)Ordered By: Jerry Hightower on 10-24-2024 Urea nitrogen [Mass/Vol] 11 mg/dL 11-17 [facility] Serum or plasma urea nitroge n measurement (mass/volume)Ordered By: Papi Hernandez on 10-24-2024 Urea nitrogen [Mass/Vol] 11 mg/dL 11-17 [facility] Sodium levelOrdered By: Natalie Hightower on 10-24-2024 Sodium [Moles/Vol] 130 mmol/L Low 133-145 [facility] Sodium levelOrdered By: Stephan Hernandez on 10-24-2024 Sodium [Moles/Vol] 131 mmol/L Low 133-145 [facility] Squamous epithelial cells de tection in urine sediment by light microscopyOrdered By: Jerry Hightower on 10-24-2024 Epithelial cells.squamous LM Ql (Urine sed) 0-5 SEEN /hpf 0-5 [facility] Testicular with Arterial Tommy won 10-24-2024 Testicular with Arterial Flow Normal [facility] Total proteinOrdered By: Renay Hightower on 10-24-2024 Protein [Mass/Vol] 7.3 g/dL 5.9-8.4 [facility] Total proteinOrdered By: Thang Hernandez on 10-24-2024 Protein [Mass/Vol] 7.0 g/dL 5.9-8.4 [facility] Urinalysis, Completeon 10-24 EPI,SQUAMOUS 0-5 SEEN Normal 0-5 [facility] Comment on above: Order Comment: CLEAN CATCH Performed By: #### L 400.0001 ####[facility] [address] [place], [address] RBC 0-5 SEEN Normal 0-5 [facility] Comment on above: Order Comment: CLEAN CATCH Performed By: #### L 400.0001 ####[facility] [address] [place], [address] BACTERIA 0 SEEN Normal None Seen [facility] Comment on above: Order Comment: CLEAN CATCH Performed By: #### L 400.0001 ####[facility] [address] [place], [address] Mucus Ql (Urine sed) 0 SEEN Normal [facility] Comment on above: Order Comment: CLEAN CATCH Performed By: #### L 400.0001 ####[facility] [address] [place], [address] WBC 0 SEEN Normal 0-5 [facility] Comment on above: Order Comment: CLEAN CATCH Performed By: #### L 400.0001 ####[facility] [address] [place], [address] Urine blood detectionOrdered By: Jerry Hightower on 10-24-2024 Urine Occult Blood Negative Negative [facility] Urine clarityOrdered By: Renay Hightower on 10-24-2024 Clarity (U) Clear Clear [facility] Urine color determinationOrd ered By: Jerry Hightower on 10-24-2024 Color (U) Straw Yellow [facility] Urine glucose detectionOrder ed By: Jerry Hightower on 10-24-2024 Glucose Ql (U) Normal mg/dl Normal [facility] Urine leukocyte esterase det ection by dipstickOrdered By: Jerry Hightower on 10-24-2024 Leukocyte esterase Test strip Ql (U) Negative Negative [facility] Urine pHOrdered By: Jerry garza on 10-24-2024 pH (U) 8.0 [pH] 5.0 - 8.0 [facility] Urine sediment bacteria coun t by microscopy (number/high power field)Ordered By: Jerry Hightower on 10-24-2024 Bacteria LM.HPF (Urine sed) [#/Area] 0 /[HPF] None Seen [facility] Urine specific gravity measu rementOrdered By: Jerry Hightower on 10-24-2024 Specific gravity (U) [Rel density] 1.010 1.002-1.030 [facility] Urine urobilinogen measureme ntOrdered By: Jerry Hightower on 10-24-2024 Urobilinogen Ql (U) Normal mg/dl Normal [facility] Urobilinogen Ql (U)Ordered B y: Jerry Hightower on 10-24-2024 Urine Urobilinogen Normal mg/dl Normal [facility] White blood cell (WBC) count Ordered By: Jerry Hightower on 10-24-2024 WBC (Bld) [#/Vol] 8.7 10*3/uL 4.4-11.0 [facility] White blood cell (WBC) count Ordered By: Papi Hernandez on 10-24-2024 WBC (Bld) [#/Vol] 8.8 10*3/uL 4.4-11.0 [facility] White blood cell countOrdere d By: Jerry Hightower on 10-24-2024 Urine WBC 0 SEEN /hpf 0-5 [facility] White blood cell count 0 SEEN /hpf 0-5 [facility] Amorphous sediment detection in urine sediment by light microscopyOrdered By: Malinda Webster on 10-17-2024 Amorphous sediment LM Ql (Urine sed) 3+ [facility] Anion gap in Serum or Plasma Ordered By: Malinda Webster on 10-17-2024 Anion gap [Moles/Vol] 9 mmol/L 5-[address] [facility] BUN/creatinine ratioOrdered By: Malinda Webster on 10-17-2024 Urea nitrogen/Creatinine [Mass ratio] 15.2 mg/mg 10- [facility] Basic Metabolic Profile (BMP )on 10-17-2024 BUN/CRE 15.2 RATIO Normal - [facility] Comment on above: Performed By: #### L 500.2500, L400.0001 ####[facility] [address] [place], [address] Calcium [Mass/Vol] 9.7 mg/dL Normal 7.6-11.0 [facility] Comment on above: Performed By: #### L 500.2500, L400.0001 ####[facility] [address] [place], [address] Chloride [Moles/Vol] 93 mmol/L Low 98-108 [facility] Comment on above: Performed By: #### L 500.2500, L400.0001 ####[facility] [address] [place], [address] CO2 [Moles/Vol] 27.4 mmol/L Normal 21.0-32.0 [facility] Comment on above: Performed By: #### L 500.2500, L400.0001 ####[facility] [address] [place], [address] Creatinine [Mass/Vol] 1.06 mg/dL Normal 0.70-1.[address] [facility] Comment on above: Performed By: #### L 500.2500, L400.0001 ####[facility] [address] [place], [address] GAP 9 Normal 5-15 [facility] Comment on above: Performed By: #### L 500.2500, L400.0001 ####[facility] [address] [place], [address] GFR/1.73 sq M.predicted among non-blacks MDRD (S/P/Bld) [Vol rate/Area] 71 mL/min/{1.73_m2} Normal >60 [facility] Comment on above: Result Comment: mL/m in/1.73m2 CKD-EPI Creatinine Equation (2020) Performed By: #### L 500.2500, L400.0001 ####[facility] [address] [place], [address] Glucose [Mass/Vol] 100 mg/dL High 70-99 [facility] Comment on above: Performed By: #### L 500.2500, L400.0001 ####[facility] [address] [place], [address] Potassium [Moles/Vol] 4.5 mmol/L Normal 3.3-5.[address] [facility] Comment on above: Performed By: #### L 500.2500, L400.0001 ####[facility] [address] [place], [address] Sodium [Moles/Vol] 130 mmol/L Low 133-145 [facility] Comment on above: Performed By: #### L 500.2500, L400.0001 ####[facility] [address] [place], [address] Urea nitrogen [Mass/Vol] 16 mg/dL Normal -19 [facility] Comment on above: Performed By: #### L 500.2500, L400.0001 ####[facility] [address] [place], [address] Bilirubin Test strip Ql (U)O rdered By: Malinda Webster on 10-17-2024 Bilirubin Ql (U) Negative Negative [facility] Carbon dioxide, total [Moles /volume] in Central venous bloodOrdered By: Malinda Webster on 10-17-2024 CO2 [Moles/Vol] 27.4 mmol/L 21.0-32.0 [facility] Cardiology Visit Reporton Cardiology Visit Report Normal [facility] Chloride assayOrdered By: Santa Webster on 10-17-2024 Chloride [Moles/Vol] 93 mmol/L Low 98-108 [facility] Epithelial cells.squamous LM Ql (Urine sed)Ordered By: Malinda Webster on 10-17-2024 Epithelial cells.squamous LM.HPF (Urine sed) [#/Area] 0 /[HPF] 0-5 [facility] GFR/1.73 sq M.predicted gregg g non-blacks MDRD (S/P/Bld) [Vol rate/Area]Ordered By: Malinda Webster on 10-17-2024 Estimated GFR (MDRD) Non-Af Amer 71 >60 [facility] Comment on above: mL/min/1.73m2 CKD-EP I Creatinine Equation (2020) Glomerular filtration rate ( GFR) estimation/1.73 sq m using serum, plasma, or whole bOrdered By: Malinda Webster on 10-17-2024 GFR/1.73 sq M.predicted among non-blacks MDRD (S/P/Bld) [Vol rate/Area] 71 mL/min/{1.73_m2} >60 [facility] Comment on above: mL/min/1.73m2 CKD-EP I Creatinine Equation (2020) Glucose Ql (U)Ordered By: Santa Webster on 10-17-2024 Urine Glucose (UA) Normal mg/dl Normal [facility] Ketones Test strip Ql (U)Ord ered By: Malinda Webster on 10-17-2024 Ketones Ql (U) Negative Negative [facility] Microscopic analysis of urin e for red blood cells (RBC)Ordered By: Malinda Webster on 10-17-2024 Microscopic analysis of urine for red blood cells (RBC) 0 SEEN /hpf 0-5 [facility] Urine RBC 0 SEEN /hpf 0-5 [facility] Mucus LM Ql (Urine sed)Order ed By: Malinda Webster on 10-17-2024 Mucus Ql (Urine sed) 0 SEEN /hpf [facility] Nitrite Test strip Ql (U)Ord ered By: Malinda Webster on 10-17-2024 Nitrite Ql (U) Negative Negative [facility] Potassium (Unsp spec) [Mass/ Vol]Ordered By: Malinda Webster on 10-17-2024 Potassium [Moles/Vol] 4.5 mmol/L 3.3-5.[address] [facility] Potassium measurement (mass/ volume)Ordered By: Malinda Webster on 10-17-2024 Potassium (Unsp spec) [Mass/Vol] 4.5 mmol/L 3.3-5.1 [facility] Protein Test strip Ql (U)Ord ered By: Malinda Webster on 10-17-2024 Protein Ql (U) 30 mg/dl High Negative [facility] Serum creatinine measurement (mass/volume)Ordered By: Malinda Webster on 10-17-2024 Creatinine [Mass/Vol] 1.06 mg/dL 0.70-1.[address] [facility] Serum glucose measurement (m ass/volume)Ordered By: Malinda Webster on 10-17-2024 Glucose [Mass/Vol] 100 mg/dL High 70-99 [facility] Serum or plasma calcium shagufta urement (mass/volume)Ordered By: Malinda Webster on 10-17-2024 Calcium [Mass/Vol] 9.7 mg/dL 7.6-11.0 [facility] Serum or plasma urea nitroge n measurement (mass/volume)Ordered By: Malinda Webster on 10-17-2024 Urea nitrogen [Mass/Vol] 16 mg/dL 4-19 [facility] Sodium levelOrdered By: Malinda Webster on 10-17-2024 Sodium [Moles/Vol] 130 mmol/L Low 133-145 [facility] Squamous epithelial cells de tection in urine sediment by light microscopyOrdered By: Malinda Webster on 10-17-2024 Epithelial cells.squamous LM Ql (Urine sed) 0 SEEN /hpf 0-5 [facility] Urinalysis, Completeon 10-17 AMORPHOUS 3+ Normal [facility] Comment on above: Order Comment: BOB CTOR TO SPECIFY Performed By: #### L 500.2500, L400.0001 ####[facility] [address] [place], [address] BACTERIA 2+ /hpf Normal None Seen [facility] Comment on above: Order Comment: BOB CTOR TO SPECIFY Performed By: #### L 500.2500, L400.0001 ####[facility] [address] [place], [address] RBC 0 SEEN Normal 0-5 [facility] Comment on above: Order Comment: BOB CTOR TO SPECIFY Performed By: #### L 500.2500, L400.0001 ####[facility] [address] [place], [address] EPI,SQUAMOUS 0 SEEN Normal 0-5 [facility] Comment on above: Order Comment: BOB CTOR TO SPECIFY Performed By: #### L 500.2500, L400.0001 ####[facility] [address] [place], [address] Mucus Ql (Urine sed) 0 SEEN Normal [facility] Comment on above: Order Comment: BOB CTOR TO SPECIFY Performed By: #### L 500.2500, L400.0001 ####[facility] [address] [place], [place], [address] WBC 0 SEEN Normal 0-5 [facility] Comment on above: Order Comment: BOB CTOR TO SPECIFY Performed By: #### L 500.2500, L400.0001 ####[facility] [address] [place], [place], [id number] Urine blood detectionOrdered By: Malinda Webster on 10-17-2024 Urine Occult Blood Negative Negative [facility] Urine clarityOrdered By: Marcelo Webster on 10-17-2024 Clarity (U) Sl. Cloudy Clear [facility] Urine color determinationOrd ered By: Malinda Webster on 10-17-2024 Color (U) Yellow Yellow [facility] Urine glucose detectionOrder ed By: Malinda Webster on 10-17-2024 Glucose Ql (U) Normal mg/dl Normal [facility] Urine leukocyte esterase det ection by dipstickOrdered By: Malinda Webster on 10-17-2024 Leukocyte esterase Test strip Ql (U) Negative Negative [facility] Urine pHOrdered By: Malnida vallejo on 10-17-2024 pH (U) 8.0 [pH] 5.0 - 8.0 [facility] Urine sediment bacteria coun t by microscopy (number/high power field)Ordered By: Malidna Webster on 10-17-2024 Bacteria LM.HPF (Urine sed) [#/Area] 2 /[HPF] None Seen [facility] Urine specific gravity measu rementOrdered By: Malinda Webster on 10-17-2024 Specific gravity (U) [Rel density] 1.015 1.002-1.030 [facility] Urine urobilinogen measureme ntOrdered By: Malinda Webster on 10-17-2024 Urobilinogen Ql (U) Normal mg/dl Normal [facility] Urobilinogen Ql (U)Ordered B y: Malinda Webster on 10-17-2024 Urine Urobilinogen Normal mg/dl Normal [facility] White blood cell countOrdere d By: Malinda Webster on 10-17-2024 Urine WBC 0 SEEN /hpf 0-5 [facility] White blood cell count 0 SEEN /hpf 0-5 [facility] Absolute lymphocyte countOrd ered By: Mariela Shahram on 09-05-2024 Lymphocytes Auto (Unsp spec) [#/Vol] 1.41 10*3/uL 0.83-4.51 [facility] Absolute neutrophil countOrd ered By: [facility] on 09-05-2024 Neutrophils (Bld) [#/Vol] 4.1 10*3/uL 2.0-7.7 [facility] Albumin to globulin ratioOrd ered By: [facility] on 09-05-2024 Albumin/Globulin [Mass ratio] 1.0 {ratio} 0.9-2.4 [facility] Automated lymphocyte count a s percentage of total leukocytesOrdered By: [facility] on 09-05-2024 Lymphocytes/100 WBC Auto (Unsp spec) 22.2 % 19-41 [facility] Basophil percentageOrdered B y: [facility] on 09-05-2024 Basophils/100 WBC (Bld) 0.3 % 0-1 [facility] Bilirubin, totalOrdered By: [facility] on 09-05-2024 Bilirubin [Mass/Vol] 0.80 mg/dL 0.20-1.00 [facility] Comment on above: For patients on eltr ombopag therapy, use of Dimension [place] TBIL is not recommended. Blood urea nitrogen (BUN)/cr eatinine ratioOrdered By: [facility] on 09-05-2024 Urea nitrogen/Creatinine [Mass ratio] 13.0 mg/mg 10-20 [facility] CBC W/Diff, Automatedon Absolute Lymph 1.41 X10 3/uL Normal 0.83-4.51 [facility] Comment on above: Performed By: #### L 500.4050, L100.0100 ####[facility] [address] [place], [place], [address] Absolute Neut 4.1 X10 3/uL Normal 2.0-7.7 [facility] Comment on above: Performed By: #### L 500.4050, L100.0100 ####[facility] [address] [place], [address] Basophils/100 WBC (Bld) 0.3 % Normal 0-1 [facility] Comment on above: Performed By: #### L 500.4050, L100.0100 ####[facility] [address] [place], [address] Eosinophils/100 WBC (Bld) 3.1 % Normal 0-5 [facility] Comment on above: Performed By: #### L 500.4050, L100.0100 ####[facility] [address] [place], [address] Erythrocyte distribution width (RBC) [Ratio] 13.3 % Normal 11.6-14.6 [facility] Comment on above: Performed By: #### L 500.4050, L100.0100 ####[facility] [address] [place], [address] Hematocrit (Bld) [Volume fraction] 39.9 % Low 40-54 [facility] Comment on above: Performed By: #### L 500.4050, L100.0100 ####[facility] [address] [place], [address] Hemoglobin (Bld) [Mass/Vol] 13.3 g/dL Normal 13.0-16.5 [facility] Comment on above: Performed By: #### L 500.4050, L100.0100 ####[facility] [address] [place], [address] IG% 0.200 Normal 0.0-0.9 [facility] Comment on above: Result Comment: IG% - Immature Granulocytes (promyelocytes, myelocytes andmetamyelocytes) > 1% indicates that a LEFT SHIFT is Present. Performed By: #### L 500.4050, L100.0100 ####[facility] [address] [place], [address] Lymphocytes/100 WBC (Bld) 22.2 % Normal 19-41 [facility] Comment on above: Performed By: #### L 500.4050, L100.0100 ####[facility] [address] [place], [address] MCH (RBC) [Entitic mass] 29.6 pg Normal 27.0-32.0 [facility] Comment on above: Performed By: #### L 500.4050, L100.0100 ####[facility] [address] [place], [address] MCHC (RBC) [Mass/Vol] 33.3 g/dL Normal 32-[address] [facility] Comment on above: Performed By: #### L 500.4050, L100.0100 ####[facility] [address] [place], [address] MCV (RBC) [Entitic vol] 88.7 fL Normal 80-94 [facility] Comment on above: Performed By: #### L 500.4050, L100.0100 ####[facility] [address] [place], [address] Monocytes/100 WBC (Bld) 10.2 % High 0-10 [facility] Comment on above: Performed By: #### L 500.4050, L100.0100 ####[facility] [address] [place], [address] Neutrophils/100 WBC (Bld) 64.0 % Normal 47-70 [facility] Comment on above: Performed By: #### L 500.4050, L100.0100 ####[facility] [address] [place], [address] Nucleated RBC (Bld) [#/Vol] 0 10*3/uL Normal 0-5 [facility] Comment on above: Performed By: #### L 500.4050, L100.0100 ####[facility] [address] [place], [address] Platelet mean volume (Bld) [Entitic vol] 9.8 fL Normal 6.2-12.0 [facility] Comment on above: Performed By: #### L 500.4050, L100.0100 ####[facility] [address] [place], [address] Platelets (Bld) [#/Vol] 274 10*3/uL Normal 150-450 [facility] Comment on above: Performed By: #### L 500.4050, L100.0100 ####[facility] [address] [place], [address] RBC (Bld) [#/Vol] 4.50 10*6/uL Low 4.6-6.2 [facility] Comment on above: Performed By: #### L 500.4050, L100.0100 ####[facility] [address] [place], [address] RDW SD 43.2 fl Normal 35.1-43.9 [facility] Comment on above: Performed By: #### L 500.4050, L100.0100 ####[facility] [address] [place], [address] WBC (Bld) [#/Vol] 6.4 10*3/uL Normal 4.4-11.0 [facility] Comment on above: Performed By: #### L 500.4050, L100.0100 ####[facility] [address] [place], [address] Carbon dioxide measurementOr dered By: Mariela Olson on 09-05-2024 CO2 [Moles/Vol] 30.0 mmol/L 21.0-32.0 [facility] Chloride measurementOrdered By: Mariela Olson on 09-05-2024 Chloride [Moles/Vol] 98 mmol/L 98-107 [facility] Comprehensive Metabolic Prof ilon 09-05-2024 Albumin [Mass/Vol] 3.8 g/dL Normal 3.2-5.0 [facility] Comment on above: Performed By: #### L 500.4050, L100.0100 ####[facility] [address] [place], [address] Albumin/Globulin [Mass ratio] 1.0 {ratio} Normal 0.9-2.4 [facility] Comment on above: Performed By: #### L 500.4050, L100.0100 ####[facility] [address] [place], [address] ALK P 106 U/L Normal 45-117 [facility] Comment on above: Performed By: #### L 500.4050, L100.0100 ####[facility] [address] [place], [address] ALT [Catalytic activity/Vol] 30 U/L Normal 16-61 [facility] Comment on above: Performed By: #### L 500.4050, L100.0100 ####[facility] [address] [place], [address] AST [Catalytic activity/Vol] 27 U/L Normal 15-37 [facility] Comment on above: Performed By: #### L 500.4050, L100.0100 ####[facility] [address] [place], [address] Bilirubin [Mass/Vol] 0.80 mg/dL Normal 0.20-1.00 [facility] Comment on above: Result Comment: For patients on eltrombopag therapy, use of Dimension [place] TBIL is not recommended. Performed By: #### L 500.4050, L100.0100 ####[facility] [address] [place], [address] BUN/CRE 13.0 RATIO Normal 10-20 [facility] Comment on above: Performed By: #### L 500.4050, L100.0100 ####[facility] [address] [place], [address] CA,Total 9.8 mg/dL Normal 8.5-10.1 [facility] Comment on above: Performed By: #### L 500.4050, L100.0100 ####[facility] [address] [place], [address] Chloride [Moles/Vol] 98 mmol/L Normal 98-107 [facility] Comment on above: Performed By: #### L 500.4050, L100.0100 ####[facility] [address] [place], [address] CO2 [Moles/Vol] 30.0 mmol/L Normal 21.0-32.0 [facility] Comment on above: Performed By: #### L 500.4050, L100.0100 ####[facility] [address] [place], [address] Creatinine [Mass/Vol] 1.23 mg/dL Normal 0.70-1.[address] [facility] Comment on above: Result Comment: The validity of the calculated GFR GFRAA in patients over70 years has not been determined. Clinical correlation isessential. Performed By: #### L 500.4050, L100.0100 ####[facility] [address] [place], [address] EST GFR - AA 73 mL/min Normal >60 [facility] Comment on above: Result Comment: Afri can [place] GFR Calc Performed By: #### L 500.4050, L100.0100 ####[facility] [address] [place], [address] GAP 7 Normal 5-15 [facility] Comment on above: Performed By: #### L 500.4050, L100.0100 ####[facility] [address] [place], [address] GFR/1.73 sq M.predicted among non-blacks MDRD (S/P/Bld) [Vol rate/Area] 60 mL/min/{1.73_m2} Normal >60 [facility] Comment on above: Result Comment: Non- GFR Calc Performed By: #### L 500.4050, L100.0100 ####[facility] [address] [place], [address] Globulin (S) [Mass/Vol] 3.7 g/dL Normal 2.2-4.2 [facility] Comment on above: Performed By: #### L 500.4050, L100.0100 ####[facility] [address] [place], [address] Glucose [Mass/Vol] 99 mg/dL Normal 74-106 [facility] Comment on above: Performed By: #### L 500.4050, L100.0100 ####[facility] [address] [place], [address] Potassium [Moles/Vol] 4.3 mmol/L Normal 3.5-5.[address] [facility] Comment on above: Performed By: #### L 500.4050, L100.0100 ####[facility] [address] [place], [address] Sodium [Moles/Vol] 135 mmol/L Low 136-145 [facility] Comment on above: Performed By: #### L 500.4050, L100.0100 ####[facility] [address] [place], [address] T PROT 7.5 g/dL Normal 6.4-8.2 [facility] Comment on above: Performed By: #### L 500.4050, L100.0100 ####[facility] [address] [place], [place], [address] Urea nitrogen [Mass/Vol] 16 mg/dL Normal 7-18 [facility] Comment on above: Performed By: #### L 500.4050, L100.0100 ####[facility] [address] [place], [address] Eosinophil percentageOrdered By: Marielabruce Olson on 09-05-2024 Eosinophils/100 WBC (Bld) 3.1 % 0-5 [facility] Erythrocyte distribution wid th ratioOrdered By: [facility] on 09-05-2024 Erythrocyte distribution width (RBC) [Ratio] 13.3 % 11.6-14.6 [facility] Erythrocyte distribution wid th standard deviationOrdered By: Mariela Shahram on 09-05-2024 Erythrocyte distribution width (RBC) [Entitic vol] 43.2 fL 35.1-43.9 [facility] Erythrocyte distribution width (RBC) [Ratio] 43.2 fl 35.1-43.9 [facility] Estimated glomerular filtrat ion rate (GFR) AmericanOrdered By: Marielabruce Olson on 09-05-2024 Estimated GFR (MDRD) Amer 73 mL/min >60 [facility] Comment on above: GFR Calc Glomerular filtration rate ( GFR) estimationOrdered By: Mariela Olson on 09-05-2024 Estimated GFR (MDRD) Non-Af Amer 60 mL/min >60 [facility] Comment on above: Non- GFR Calc GFR/1.73 sq M.predicted among non-blacks MDRD (S/P/Bld) [Vol rate/Area] 60 mL/min/{1.73_m2} >60 [facility] Comment on above: Non- GFR Calc Glucose measurementOrdered B y: Mariela Olson on 09-05-2024 Glucose [Mass/Vol] 99 mg/dL 74-106 [facility] Hematocrit Auto (Bld) [Volum e fraction]Ordered By: Mariela Olson on 09-05-2024 Hematocrit (Bld) [Volume fraction] 39.9 % Low 40-54 [facility] Hemoglobin measurementOrdere d By: Mariela Olson on 09-05-2024 Hemoglobin (Bld) [Mass/Vol] 13.3 g/dL 13.0-16.5 [facility] Immature granulocytes/100 WB C Auto (Bld)Ordered By: Mariela Olson on 09-05-2024 Immature granulocytes/100 WBC (Bld) 0.200 % 0.0-0.9 [facility] Comment on above: IG% - Immature Granu locytes (promyelocytes, myelocytes and metamyelocytes) > 1% indicates that a LEFT SHIFT is Present. Laboratory - Chemistry and C hemistry - challengeOrdered By: Mariela Olson on 09-05-2024 AST [Catalytic activity/Vol] 27 U/L 15-37 [facility] Lymphocytes Auto (Unsp spec) [#/Vol]Ordered By: Marielabruce Olson on 09-05-2024 Lymphocytes (Bld) [#/Vol] 1.41 10*3/uL 0.83-4.51 [facility] Lymphocytes/100 WBC Auto (Un sp spec)Ordered By: Mariela Olson on 09-05-2024 Lymphocytes/100 WBC (Bld) 22.2 % 19-41 [facility] MCV (mean corpuscular volume ) determinationOrdered By: Mariela Olson on 09-05-2024 MCV (RBC) [Entitic vol] 88.7 fL 80-94 [facility] Mean corpuscular hemoglobin (MCH) determinationOrdered By: Mariela Olson on 09-05-2024 MCH (RBC) [Entitic mass] 29.6 pg 27.0-32.0 [facility] Mean corpuscular hemoglobin concentration (MCHC) determinationOrdered By: Marielabruce Olson on 09-05-2024 MCHC (RBC) [Mass/Vol] 33.3 g/dL 32-[address] [facility] Mean platelet volume determi nationOrdered By: Mariela Olson on 09-05-2024 Platelet mean volume (Bld) [Entitic vol] 9.8 fL 6.2-12.0 [facility] Monocyte percentageOrdered B y: Mariela Olson on 09-05-2024 Monocytes/100 WBC (Bld) 10.2 % High 0-10 [facility] Neutrophil percentageOrdered By: Mariela Olson on 09-05-2024 Neutrophils/100 WBC (Bld) 64.0 % 47-70 [facility] No Panel InformationOrdered By: Mariela Olson on 09-05-2024 27 U/L 15-37 [facility] Nucleated red blood cell per centageOrdered By: Mariela Olson on 09-05-2024 Nucleated RBC/100 WBC (Bld) [Ratio] 0 % 0-5 [facility] Platelet countOrdered By: Ra caio Olson on 09-05-2024 Platelets (Bld) [#/Vol] 274 10*3/uL 150-450 [facility] Potassium measurementOrdered By: Mariela Olson on 09-05-2024 Potassium [Moles/Vol] 4.3 mmol/L 3.5-5.[address] [facility] RBC Auto (Bld) [#/Vol]Ordere d By: Mariela Olson on 09-05-2024 RBC (Bld) [#/Vol] 4.50 10*6/uL Low 4.6-6.2 [facility] Serum anion gap measurementO rdered By: Mariela Olson on 09-05-2024 Anion gap [Moles/Vol] 7 mmol/L 5-[address] [facility] Serum globulin measurementOr dered By: Mariela Olson on 09-05-2024 Globulin (S) [Mass/Vol] 3.7 g/dL 2.2-4.2 [facility] Serum or plasma alanine carrion otransferase (ALT) measurementOrdered By: Mariela Olson on 09-05-2024 ALT [Catalytic activity/Vol] 30 U/L 16-61 [facility] Serum or plasma albumin shagufta urement (mass/volume)Ordered By: Mariela Olson on 09-05-2024 Albumin [Mass/Vol] 3.8 g/dL 3.2-5.0 [facility] Serum or plasma alkaline airam sphatase measurementOrdered By: Mariela Olson on 09-05-2024 ALP [Catalytic activity/Vol] 106 U/L 45-117 [facility] Serum or plasma calcium shagufta urement (mass/volume)Ordered By: Mariela Olson 09-05-2024 Calcium [Mass/Vol] 9.8 mg/dL 8.5-10.1 [facility] Serum or plasma creatinine m easurement (mass/volume)Ordered By: Mariela Cifuentesgar on 09-05-2024 Creatinine [Mass/Vol] 1.23 mg/dL 0.70-1.[address] [facility] Comment on above: The validity of the calculated GFR & GFRAA in patients over 70 years has not been determined. Clinical correlation is essential. Serum or plasma urea nitroge n measurement (mass/volume)Ordered By: Mariela Olson on 09-05-2024 Urea nitrogen [Mass/Vol] 16 mg/dL 7-18 [facility] Sodium levelOrdered By: Ana M el Shahram on 09-05-2024 Sodium [Moles/Vol] 135 mmol/L Low 136-145 [facility] Total proteinOrdered By: Hortencia bruce Shahram on 09-05-2024 Protein [Mass/Vol] 7.5 g/dL 6.4-8.2 [facility] White blood cell (WBC) count Ordered By: Mariela Olson on 09-05-2024 WBC (Bld) [#/Vol] 6.4 10*3/uL 4.4-11.0 [facility] Oncology Visit Reporton Oncology Visit Report Normal [facility] Carcinoembryonic Antigenon 09-19-2023 CEA 6.6 ng/mL High 0.0-4.7 [facility] Comment on above: Result Comment: Nons mokers <3.9 Smokers <5.6[employer] Electrochemiluminescence Immunoassay(ECLIA)Values obtained with different assay methods or kitscannot be used interchangeably. Results cannot beinterpreted as absolute evidence of the presence orabsence of malignant disease.Performed at: [facility] [id number] Director: Jian Paredes PhD, Phone: [phone] Performed By: #### L 500.3157, L100.0100, L3100.2991 ####[facility] [address] [place], [place], [id number] CBC W/Diff, Automatedon 12- Absolute Lymph 1.90 X10 3/uL Normal 0.83-4.51 [facility] Comment on above: Performed By: #### L 500.4050, L100.0100, L3100.2300 ####[facility] [address] [place], [address] Absolute Neut 3.9 X10 3/uL Normal 2.0-7.7 [facility] Comment on above: Performed By: #### L 500.4050, L100.0100, L3100.2300 ####[facility] [address] [place], [address] Basophils/100 WBC (Bld) 0.3 % Normal 0-1 [facility] Comment on above: Performed By: #### L 500.4050, L100.0100, L3100.2300 ####[facility] [address] [place], [address] Eosinophils/100 WBC (Bld) 5.3 % High 0-5 [facility] Comment on above: Performed By: #### L 500.4050, L100.0100, L3100.2300 ####[facility] [address] [place], [address] Erythrocyte distribution width (RBC) [Ratio] 17.1 % High 11.6-14.6 [facility] Comment on above: Performed By: #### L 500.4050, L100.0100, L3100.2300 ####[facility] [address] [place], [address] Hematocrit (Bld) [Volume fraction] 36.4 % Low 40-54 [facility] Comment on above: Performed By: #### L 500.4050, L100.0100, L3100.2300 ####[facility] [address] [place], [address] Hemoglobin (Bld) [Mass/Vol] 11.8 g/dL Low 13.0-16.5 [facility] Comment on above: Performed By: #### L 500.4050, L100.0100, L3100.2300 ####[facility] [address] [place], [address] IG% 0.300 Normal 0.0-0.9 [facility] Comment on above: Result Comment: IG% - Immature Granulocytes (promyelocytes, myelocytes andmetamyelocytes) > 1% indicates that a LEFT SHIFT is Present. Performed By: #### L 500.4050, L100.0100, L3100.2300 ####[facility] [address] [place], [address] Lymphocytes/100 WBC (Bld) 27.4 % Normal 19-41 [facility] Comment on above: Performed By: #### L 500.4050, L100.0100, L3100.2300 ####[facility] [address] [place], [address] MCH (RBC) [Entitic mass] 28.1 pg Normal 27.0-32.0 [facility] Comment on above: Performed By: #### L 500.4050, L100.0100, L3100.2300 ####[facility] [address] [place], [address] MCHC (RBC) [Mass/Vol] 32.4 g/dL Normal 32-[address] [facility] Comment on above: Performed By: #### L 500.4050, L100.0100, L3100.2300 ####[facility] [address] [place], [address] MCV (RBC) [Entitic vol] 86.7 fL Normal 80-94 [facility] Comment on above: Performed By: #### L 500.4050, L100.0100, L3100.2300 ####[facility] [address] [place], [address] Monocytes/100 WBC (Bld) 11.1 % High 0-10 [facility] Comment on above: Performed By: #### L 500.4050, L100.0100, L3100.2300 ####[facility] [address] [place], [address] Neutrophils/100 WBC (Bld) 55.6 % Normal 47-70 [facility] Comment on above: Performed By: #### L 500.4050, L100.0100, L3100.2300 ####[facility] [address] [place], [address] Nucleated RBC (Bld) [#/Vol] 0 10*3/uL Normal 0-5 [facility] Comment on above: Performed By: #### L 500.4050, L100.0100, L3100.2300 ####[facility] [address] [place], [address] Platelet mean volume (Bld) [Entitic vol] 9.4 fL Normal 6.2-12.0 [facility] Comment on above: Performed By: #### L 500.4050, L100.0100, L3100.2300 ####[facility] [address] [place], [address] Platelets (Bld) [#/Vol] 230 10*3/uL Normal 150-450 [facility] Comment on above: Performed By: #### L 500.4050, L100.0100, L3100.2300 ####[facility] [address] [place], [address] RBC (Bld) [#/Vol] 4.20 10*6/uL Low 4.6-6.2 [facility] Comment on above: Performed By: #### L 500.4050, L100.0100, L3100.2300 ####[facility] [address] [place], [address] RDW SD 54.4 fl High 35.1-43.9 [facility] Comment on above: Performed By: #### L 500.4050, L100.0100, L3100.2300 ####[facility] [address] [place], [address] WBC (Bld) [#/Vol] 6.9 10*3/uL Normal 4.4-11.0 [facility] Comment on above: Performed By: #### L 500.4050, L100.0100, L3100.2300 ####[facility] [address] [place], [address] Comprehensive Metabolic [facility] 07-18-2024 Albumin [Mass/Vol] 3.6 g/dL Normal 3.2-5.0 [facility] Comment on above: Performed By: #### L 500.4050, L100.0100, L3100.2300 ####[facility] [address] [place], [address] Albumin/Globulin [Mass ratio] 1.0 {ratio} Normal 0.9-2.4 [facility] Comment on above: Performed By: #### L 500.4050, L100.0100, L3100.2300 ####[facility] [address] [place], [address] ALK P 114 U/L Normal 45-117 [facility] Comment on above: Performed By: #### L 500.4050, L100.0100, L3100.2300 ####[facility] [address] [place], [address] ALT [Catalytic activity/Vol] 33 U/L Normal 16-61 [facility] Comment on above: Performed By: #### L 500.4050, L100.0100, L3100.2300 ####[facility] [address] [place], [address] AST [Catalytic activity/Vol] 25 U/L Normal 15-37 [facility] Comment on above: Performed By: #### L 500.4050, L100.0100, L3100.2300 ####[facility] [address], [address] Bilirubin [Mass/Vol] 0.30 mg/dL Normal 0.20-1.00 [facility] Comment on above: Result Comment: For patients on eltrombopag therapy, use of Dimension [place] TBIL is not recommended. Performed By: #### L 500.4050, L100.0100, L3100.2300 ####[facility] [address] [place], [address] BUN/CRE 14.8 RATIO Normal 10-20 [facility] Comment on above: Performed By: #### L 500.4050, L100.0100, L3100.2300 ####[facility] [address], [address] CA,Total 9.0 mg/dL Normal 8.5-10.1 [facility] Comment on above: Performed By: #### L 500.4050, L100.0100, L3100.2300 ####[facility] [address] [place], [address] Chloride [Moles/Vol] 104 mmol/L Normal 98-107 [facility] Comment on above: Performed By: #### L 500.4050, L100.0100, L3100.2300 ####[facility] [address] [place], [address] CO2 [Moles/Vol] 30.0 mmol/L Normal 21.0-32.0 [facility] Comment on above: Performed By: #### L 500.4050, L100.0100, L3100.2300 ####[facility] [address] [place], [address] Creatinine [Mass/Vol] 1.15 mg/dL Normal 0.70-1.[address] [facility] Comment on above: Result Comment: The validity of the calculated GFR GFRAA in patients over70 years has not been determined. Clinical correlation isessential. Performed By: #### L 500.4050, L100.0100, L3100.2300 ####[facility] [address] [place], [address] ECRCL 47.90 ml/min Normal [facility] Comment on above: Performed By: #### L 500.4050, L100.0100, L3100.2300 ####[facility] [address] [place], [address] EST GFR - AA 79 mL/min Normal >60 [facility] Comment on above: Result Comment: Afri can [place] GFR Calc Performed By: #### L 500.4050, L100.0100, L3100.2300 ####[facility] [address] [place], [address] GAP 2 Low 5-15 [facility] Comment on above: Performed By: #### L 500.4050, L100.0100, L3100.2300 ####[facility] [address] [place], [address] GFR/1.73 sq M.predicted among non-blacks MDRD (S/P/Bld) [Vol rate/Area] 65 mL/min/{1.73_m2} Normal >60 [facility] Comment on above: Result Comment: Non- GFR Calc Performed By: #### L 500.4050, L100.0100, L3100.2300 ####[facility] [address] [place], [address] Globulin (S) [Mass/Vol] 3.6 g/dL Normal 2.2-4.2 [facility] Comment on above: Performed By: #### L 500.4050, L100.0100, L3100.2300 ####[facility] [address] [place], [address] Glucose [Mass/Vol] 105 mg/dL Normal 74-106 [facility] Comment on above: Result Comment: Fast ing Glucose result from 100 to 125 mg/dLsuggests IMPAIRED HOMEOSTASIS per A.D.A. criteria. Performed By: #### L 500.4050, L100.0100, L3100.2300 ####[facility] [address] [place], [address] Potassium [Moles/Vol] 4.0 mmol/L Normal 3.5-5.[address] [facility] Comment on above: Performed By: #### L 500.4050, L100.0100, L3100.2300 ####[facility] [address] [place], [address] Sodium [Moles/Vol] 136 mmol/L Normal 136-145 [facility] Comment on above: Performed By: #### L 500.4050, L100.0100, L3100.2300 ####[facility] [address] [place], [address] T PROT 7.2 g/dL Normal 6.4-8.2 [facility] Comment on above: Performed By: #### L 500.4050, L100.0100, L3100.2300 ####[facility] [address] [place], [address] Urea nitrogen [Mass/Vol] 17 mg/dL Normal 7-18 [facility] Comment on above: Performed By: #### L 500.4050, L100.0100, L3100.2300 ####[facility] [address] [place], [address] Estimated glomerular filtrat ion rate (GFR) AmericanOrdered By: Papi Hernandez on 07-18-2024 Estimated GFR (MDRD) Amer 79 mL/min >60 [facility] Comment on above: GFR Calc Oncology Visit Reporton 07-01 Oncology Visit Report Normal [facility] CBC W/Diff, Automatedon Absolute Lymph 1.59 X10 3/uL Normal 0.83-4.51 [facility] Comment on above: Performed By: #### L 300.3900, L100.0100 ####[facility] [address] [place], [address] Absolute Neut 3.4 X10 3/uL Normal 2.0-7.7 [facility] Comment on above: Performed By: #### L 300.3900, L100.0100 ####[facility] [address] [place], [address] Basophils/100 WBC (Bld) 0.5 % Normal 0-1 [facility] Comment on above: Performed By: #### L 300.3900, L100.0100 ####[facility] [address] [place], [address] Eosinophils/100 WBC (Bld) 4.7 % Normal 0-5 [facility] Comment on above: Performed By: #### L 300.3900, L100.0100 ####[facility] [address] [place], [address] Erythrocyte distribution width (RBC) [Ratio] 17.5 % High 11.6-14.6 [facility] Comment on above: Performed By: #### L 300.3900, L100.0100 ####[facility] [address] [place], [address] Hematocrit (Bld) [Volume fraction] 36.9 % Low 40-54 [facility] Comment on above: Performed By: #### L 300.3900, L100.0100 ####[facility] [address] [place], [address] Hemoglobin (Bld) [Mass/Vol] 11.5 g/dL Low 13.0-16.5 [facility] Comment on above: Performed By: #### L 300.3900, L100.0100 ####[facility] [address] [place], [address] IG% 0.300 Normal 0.0-0.9 [facility] Comment on above: Result Comment: IG% - Immature Granulocytes (promyelocytes, myelocytes andmetamyelocytes) > 1% indicates that a LEFT SHIFT is Present. Performed By: #### L 300.3900, L100.0100 ####[facility] [address] [place], [address] Lymphocytes/100 WBC (Bld) 26.6 % Normal 19-41 [facility] Comment on above: Performed By: #### L 300.3900, L100.0100 ####[facility] [address] [place], [address] MCH (RBC) [Entitic mass] 27.1 pg Normal 27.0-32.0 [facility] Comment on above: Performed By: #### L 300.3900, L100.0100 ####[facility] [address] [place], [address] MCHC (RBC) [Mass/Vol] 31.2 g/dL Low 32-[address] [facility] Comment on above: Performed By: #### L 300.3900, L100.0100 ####[facility] [address] [place], [address] MCV (RBC) [Entitic vol] 87.0 fL Normal 80-94 [facility] Comment on above: Performed By: #### L 300.3900, L100.0100 ####[facility] [address] [place], [address] Monocytes/100 WBC (Bld) 10.5 % High 0-10 [facility] Comment on above: Performed By: #### L 300.3900, L100.0100 ####[facility] [address] [place], [address] Neutrophils/100 WBC (Bld) 57.4 % Normal 47-70 [facility] Comment on above: Performed By: #### L 300.3900, L100.0100 ####[facility] [address] [place], [address] Nucleated RBC (Bld) [#/Vol] 0 10*3/uL Normal 0-5 [facility] Comment on above: Performed By: #### L 300.3900, L100.0100 ####[facility] [address] [place], [address] Platelet mean volume (Bld) [Entitic vol] 9.2 fL Normal 6.2-12.0 [facility] Comment on above: Performed By: #### L 300.3900, L100.0100 ####[facility] [address] [place], [address] Platelets (Bld) [#/Vol] 316 10*3/uL Normal 150-450 [facility] Comment on above: Performed By: #### L 300.3900, L100.0100 ####[facility] [address] [place], [address] RBC (Bld) [#/Vol] 4.24 10*6/uL Low 4.6-6.2 [facility] Comment on above: Performed By: #### L 300.3900, L100.0100 ####[facility] [address] [place], [address] RDW SD 56.3 fl High 35.1-43.9 [facility] Comment on above: Performed By: #### L 300.3900, L100.0100 ####[facility] [address] [place], [address] WBC (Bld) [#/Vol] 6.0 10*3/uL Normal 4.4-11.0 [facility] Comment on above: Performed By: #### L 300.3900, L100.0100 ####[facility] [address] [place], [address] International normalized rat io (INR) calculationOrdered By: Sunny Mancia on 07-04-2024 INR Coag (Bld) [Relative time] 1.0 {INR} [facility] NATERAon 07-04-2024 NATURA SEE SCANNED REPORT Normal [facility] Comment on above: Performed By: #### L 900.0098 ####[facility] [address] [place], [address] Oncology Visit Reporton Oncology Visit Report Normal [facility] Prothrombin Time w/INRon INR Coag (PPP) [Relative time] 1.0 {INR} Normal [facility] Comment on above: Performed By: #### L 300.3900, L100.0100 ####[facility] [address] [place], [address] PT Coag (PPP) [Time] 12.8 s Normal 11.7-14.9 [facility] Comment on above: Performed By: #### L 300.3900, L100.0100 ####[facility] [address] [place], [address] Prothrombin timeOrdered By: Sunny Mancia on 07-04-2024 PT Coag (PPP) [Time] 12.8 s 11.7-14.9 [facility] Bronchoscopy Reporton 2023 Bronchoscopy Report Normal [facility] CK7 (initial)on 06-22-2024 CK7 (initial) Normal [facility] Comment on above: Performed By: #### P CK7 ####[facility] [address] [place], [address] EGD Reporton 06-22-2024 EGD Report Normal [facility] H Pylori (initial)on 024 H Pylori (initial) Normal [facility] Comment on above: Performed By: #### P H.PYLORI ####[facility] [address] [place], [address] MR/POSTOP.ANEon 06-22-2024 MR/POSTOP.ANE Normal [facility] MR/[id number] 06-22-2024 MR/POSTOPAN2 Normal [facility] Special Stain Group Ion 06-02 Special Stain Group I Normal [facility] Comment on above: Performed By: #### P SSI ####[facility] [address] [place], [address] Surgery Specimen Level Oscar 06-22-2024 Surgery Specimen Level IV Normal [facility] Comment on above: Performed By: #### P SUIV ####[facility] [address] [place], [address] CBC W/Diff, Automatedon 06-01 Absolute Lymph 1.50 X10 3/uL Normal 0.83-4.51 [facility] Comment on above: Order Comment: Comme nts: Post-operatively Performed By: #### L 100.0100 ####[facility] [address] [place], [address] Absolute Neut 5.3 X10 3/uL Normal 2.0-7.7 [facility] Comment on above: Order Comment: Comme nts: Post-operatively Performed By: #### L 100.0100 ####[facility] [address] [place], [address] Basophils/100 WBC (Bld) 0.3 % Normal 0-1 [facility] Comment on above: Order Comment: Comme nts: Post-operatively Performed By: #### L 100.0100 ####[facility] [address] [place], [address] Eosinophils/100 WBC (Bld) 1.8 % Normal 0-5 [facility] Comment on above: Order Comment: Comme nts: Post-operatively Performed By: #### L 100.0100 ####[facility] [address] [place], [address] Erythrocyte distribution width (RBC) [Ratio] 18.0 % High 11.6-14.6 [facility] Comment on above: Order Comment: Comme nts: Post-operatively Performed By: #### L 100.0100 ####[facility] [address] [place], [address] Hematocrit (Bld) [Volume fraction] 36.1 % Low 40-54 [facility] Comment on above: Order Comment: Comme nts: Post-operatively Performed By: #### L 100.0100 ####[facility] [address] [place], [address] Hemoglobin (Bld) [Mass/Vol] 11.3 g/dL Low 13.0-16.5 [facility] Comment on above: Order Comment: Comme nts: Post-operatively Performed By: #### L 100.0100 ####[facility] [address] [place], [address] IG% 0.400 Normal 0.0-0.9 [facility] Comment on above: Order Comment: Comme nts: Post-operatively Result Comment: IG% - Immature Granulocytes (promyelocytes, myelocytes andmetamyelocytes) > 1% indicates that a LEFT SHIFT is Present. Performed By: #### L 100.0100 ####[facility] [address] [place], [address] Lymphocytes/100 WBC (Bld) 19.5 % Normal 19-41 [facility] Comment on above: Order Comment: Comme nts: Post-operatively Performed By: #### L 100.0100 ####[facility] [address] [place], [address] MCH (RBC) [Entitic mass] 27.0 pg Normal 27.0-32.0 [facility] Comment on above: Order Comment: Comme nts: Post-operatively Performed By: #### L 100.0100 ####[facility] [address] [place], [address] MCHC (RBC) [Mass/Vol] 31.3 g/dL Low 32-[address] [facility] Comment on above: Order Comment: Comme nts: Post-operatively Performed By: #### L 100.0100 ####[facility] [address] [place], [address] MCV (RBC) [Entitic vol] 86.4 fL Normal 80-94 [facility] Comment on above: Order Comment: Comme nts: Post-operatively Performed By: #### L 100.0100 ####[facility] [address] [place], [address] Monocytes/100 WBC (Bld) 9.2 % Normal 0-10 [facility] Comment on above: Order Comment: Comme nts: Post-operatively Performed By: #### L 100.0100 ####[facility] [address] [place], [address] Neutrophils/100 WBC (Bld) 68.8 % Normal 47-70 [facility] Comment on above: Order Comment: Comme nts: Post-operatively Performed By: #### L 100.0100 ####[facility] [address] [place], [address] Nucleated RBC (Bld) [#/Vol] 0 10*3/uL Normal 0-5 [facility] Comment on above: Order Comment: Comme nts: Post-operatively Performed By: #### L 100.0100 ####[facility] [address] [place], [address] Platelet mean volume (Bld) [Entitic vol] 9.3 fL Normal 6.2-12.0 [facility] Comment on above: Order Comment: Comme nts: Post-operatively Performed By: #### L 100.0100 ####[facility] [address] [place], [address] Platelets (Bld) [#/Vol] 294 10*3/uL Normal 150-450 [facility] Comment on above: Order Comment: Comme nts: Post-operatively Performed By: #### L 100.0100 ####[facility] [address] [place], [address] RBC (Bld) [#/Vol] 4.18 10*6/uL Low 4.6-6.2 [facility] Comment on above: Order Comment: Comme nts: Post-operatively Performed By: #### L 100.0100 ####[facility] [address] [place], [address] RDW SD 57.7 fl High 35.1-43.9 [facility] Comment on above: Order Comment: Comme nts: Post-operatively Performed By: #### L 100.0100 ####[facility] [address] [place], [address] WBC (Bld) [#/Vol] 7.7 10*3/uL Normal 4.4-11.0 [facility] Comment on above: Order Comment: Comme nts: Post-operatively Performed By: #### L 100.0100 ####[facility] [address] [place], [address] Pulmonary Visit Reporton Pulmonary Visit Report Normal [facility] Basic Metabolic Profile (BMP )on 06-10-2024 BUN/CRE 17.0 RATIO Normal 10-20 [facility] Comment on above: Performed By: #### L 500.2500, L100.0100 ####[facility] [address] [place], [address] CA,Total 8.7 mg/dL Normal 8.5-10.1 [facility] Comment on above: Performed By: #### L 500.2500, L100.0100 ####[facility] [address] [place], [address] Chloride [Moles/Vol] 108 mmol/L High 98-107 [facility] Comment on above: Performed By: #### L 500.2500, L100.0100 ####[facility] [address] [place], [address] CO2 [Moles/Vol] 26.0 mmol/L Normal 21.0-32.0 [facility] Comment on above: Performed By: #### L 500.2500, L100.0100 ####[facility] [address] [place], [address] Creatinine [Mass/Vol] 1.12 mg/dL Normal 0.70-1.[address] [facility] Comment on above: Result Comment: The validity of the calculated GFR GFRAA in patients over70 years has not been determined. Clinical correlation isessential. Performed By: #### L 500.2500, L100.0100 ####[facility] [address] [place], [address] ECRCL 49.18 ml/min Normal [facility] Comment on above: Performed By: #### L 500.2500, L100.0100 ####[facility] [address] [place], [address] EST GFR - AA 81 mL/min Normal >60 [facility] Comment on above: Result Comment: Afri can [place] GFR Calc Performed By: #### L 500.2500, L100.0100 ####[facility] [address] [place], [address] GAP 4 Low 5-15 [facility] Comment on above: Performed By: #### L 500.2500, L100.0100 ####[facility] [address] [place], [address] GFR/1.73 sq M.predicted among non-blacks MDRD (S/P/Bld) [Vol rate/Area] 67 mL/min/{1.73_m2} Normal >60 [facility] Comment on above: Result Comment: Non- GFR Calc Performed By: #### L 500.2500, L100.0100 ####[facility] [address] [place], [address] Glucose [Mass/Vol] 100 mg/dL Normal 74-106 [facility] Comment on above: Result Comment: Fast ing Glucose result from 100 to 125 mg/dLsuggests IMPAIRED HOMEOSTASIS per A.D.A. criteria. Performed By: #### L 500.2500, L100.0100 ####[facility] [address] [place], [address] Potassium [Moles/Vol] 4.2 mmol/L Normal 3.5-5.[address] [facility] Comment on above: Performed By: #### L 500.2500, L100.0100 ####[facility] [address] [place], [address] Sodium [Moles/Vol] 138 mmol/L Normal 136-145 [facility] Comment on above: Performed By: #### L 500.2500, L100.0100 ####[facility] [address] [place], [address] Urea nitrogen [Mass/Vol] 19 mg/dL High 7-18 [facility] Comment on above: Performed By: #### L 500.2500, L100.0100 ####[facility] [address] [place], [address] CBC W/Diff, Automatedon 11- 0-4 Absolute Lymph 1.57 X10 3/uL Normal 0.83-4.51 [facility] Comment on above: Performed By: #### L 500.2500, L100.0100 ####[facility] [address] [place], [address] Absolute Neut 3.5 X10 3/uL Normal 2.0-7.7 [facility] Comment on above: Performed By: #### L 500.2500, L100.0100 ####[facility] [address] [place], [address] Basophils/100 WBC (Bld) 0.2 % Normal 0-1 [facility] Comment on above: Performed By: #### L 500.2500, L100.0100 ####[facility] [address] [place], [address] Eosinophils/100 WBC (Bld) 3.9 % Normal 0-5 [facility] Comment on above: Performed By: #### L 500.2500, L100.0100 ####[facility] [address] [place], [address] Erythrocyte distribution width (RBC) [Ratio] 18.6 % High 11.6-14.6 [facility] Company Comment on above: Performed By: #### L 500.2500, L100.0100 ####[facility] [address] [place], [address] Hematocrit (Bld) [Volume fraction] 32.1 % Low 40-54 [facility] Comment on above: Performed By: #### L 500.2500, L100.0100 ####[facility] [address] [place], [address] Hemoglobin (Bld) [Mass/Vol] 10.2 g/dL Low 13.0-16.5 [facility] Comment on above: Performed By: #### L 500.2500, L100.0100 ####[facility] [address] [place], [address] IG% 0.300 Normal 0.0-0.9 [facility] Comment on above: Result Comment: IG% - Immature Granulocytes (promyelocytes, myelocytes andmetamyelocytes) > 1% indicates that a LEFT SHIFT is Present. Performed By: #### L 500.2500, L100.0100 ####[facility] [address] [place], [address] Lymphocytes/100 WBC (Bld) 25.7 % Normal 19-41 [facility] Comment on above: Performed By: #### L 500.2500, L100.0100 ####[facility] [address] [place], [address] MCH (RBC) [Entitic mass] 27.1 pg Normal 27.0-32.0 [facility] Comment on above: Performed By: #### L 500.2500, L100.0100 ####[facility] [address] [place], [address] MCHC (RBC) [Mass/Vol] 31.8 g/dL Low 32-[address] [facility] Comment on above: Performed By: #### L 500.2500, L100.0100 ####[facility] [address] [place], [address] MCV (RBC) [Entitic vol] 85.4 fL Normal 80-94 [facility] Comment on above: Performed By: #### L 500.2500, L100.0100 ####[facility] [address] [place], [address] Monocytes/100 WBC (Bld) 12.4 % High 0-10 [facility] Comment on above: Performed By: #### L 500.2500, L100.0100 ####[facility] [address] [place], [address] Neutrophils/100 WBC (Bld) 57.5 % Normal 47-70 [facility] Comment on above: Performed By: #### L 500.2500, L100.0100 ####[facility] [address] [place], [address] Nucleated RBC (Bld) [#/Vol] 0 10*3/uL Normal 0-5 [facility] Comment on above: Performed By: #### L 500.2500, L100.0100 ####[facility] [address] [place], [address] Platelet mean volume (Bld) [Entitic vol] 9.6 fL Normal 6.2-12.0 [facility] Comment on above: Performed By: #### L 500.2500, L100.0100 ####[facility] [address] [place], [address] Platelets (Bld) [#/Vol] 275 10*3/uL Normal 150-450 [facility] Comment on above: Performed By: #### L 500.2500, L100.0100 ####[facility] [address] [place], [address] RBC (Bld) [#/Vol] 3.76 10*6/uL Low 4.6-6.2 [facility] Comment on above: Performed By: #### L 500.2500, L100.0100 ####[facility] [address] [place], [address] RDW SD 58.0 fl High 35.1-43.9 [facility] Comment on above: Performed By: #### L 500.2500, L100.0100 ####[facility] [address] [place], [address] WBC (Bld) [#/Vol] 6.1 10*3/uL Normal 4.4-11.0 [facility] Comment on above: Performed By: #### L 500.2500, L100.0100 ####[facility] [address] [place], [address] Discharge Instructionon 06-01 Discharge Instruction Normal [facility] BRCon 06-09-2024 RC Normal Neg [facility] Comment on above: Result Comment: [id number] OP RC TRANSFUSED 06/09/24 1143 Performed By: #### B , [facility] ####[facility] [address] [place], [address] CBC W/Diff, Automatedon 11- Absolute Lymph 1.40 X10 3/uL Normal 0.83-4.51 [facility] Comment on above: Performed By: #### L 100.0100, L500.4050, L501.5200 ####[facility] [address] [place], [address] Absolute Neut 4.2 X10 3/uL Normal 2.0-7.7 [facility] Comment on above: Performed By: #### L 100.0100, L500.4050, L501.5200 ####[facility] [address] [place], [address] Basophils/100 WBC (Bld) 0.3 % Normal 0-1 [facility] Comment on above: Performed By: #### L 100.0100, L500.4050, L501.5200 ####[facility] [address] [place], [address] Eosinophils/100 WBC (Bld) 3.2 % Normal 0-5 [facility] Comment on above: Performed By: #### L 100.0100, L500.4050, L501.5200 ####[facility] [address] [place], [address] Erythrocyte distribution width (RBC) [Ratio] 19.2 % High 11.6-14.6 [facility] Comment on above: Performed By: #### L 100.0100, L500.4050, L501.5200 ####[facility] [address] [place], [address] Hematocrit (Bld) [Volume fraction] 26.4 % Low 40-54 [facility] Comment on above: Performed By: #### L 100.0100, L500.4050, L501.5200 ####[facility] [address] [place], [address] Hemoglobin (Bld) [Mass/Vol] 8.2 g/dL Low 13.0-16.5 [facility] Comment on above: Performed By: #### L 100.0100, L500.4050, L501.5200 ####[facility] [address] [place], [address] IG% 0.300 Normal 0.0-0.9 [facility] Comment on above: Result Comment: IG% - Immature Granulocytes (promyelocytes, myelocytes andmetamyelocytes) > 1% indicates that a LEFT SHIFT is Present. Performed By: #### L 100.0100, L500.4050, L501.5200 ####[facility] [address] [place], [address] Lymphocytes/100 WBC (Bld) 21.6 % Normal 19-41 [facility] Comment on above: Performed By: #### L 100.0100, L500.4050, L501.5200 ####[facility] [address] [place], [address] MCH (RBC) [Entitic mass] 26.8 pg Low 27.0-32.0 [facility] Comment on above: Performed By: #### L 100.0100, L500.4050, L501.5200 ####[facility] [address] [place], [address] MCHC (RBC) [Mass/Vol] 31.1 g/dL Low 32-[address] [facility] Comment on above: Performed By: #### L 100.0100, L500.4050, L501.5200 ####[facility] [address] [place], [address] MCV (RBC) [Entitic vol] 86.3 fL Normal 80-94 [facility] Comment on above: Performed By: #### L 100.0100, L500.4050, L501.5200 ####[facility] [address] [place], [address] Monocytes/100 WBC (Bld) 10.2 % High 0-10 [facility] Comment on above: Performed By: #### L 100.0100, L500.4050, L501.5200 ####[facility] [address] [place], [address] Neutrophils/100 WBC (Bld) 64.4 % Normal 47-70 [facility] Comment on above: Performed By: #### L 100.0100, L500.4050, L501.5200 ####[facility] [address] [place], [address] Nucleated RBC (Bld) [#/Vol] 0 10*3/uL Normal 0-5 [facility] Comment on above: Performed By: #### L 100.0100, L500.4050, L501.5200 ####[facility] [address] [place], [address] Platelet mean volume (Bld) [Entitic vol] 9.8 fL Normal 6.2-12.0 [facility] Comment on above: Performed By: #### L 100.0100, L500.4050, L501.5200 ####[facility] [address] [place], [address] Platelets (Bld) [#/Vol] 262 10*3/uL Normal 150-450 [facility] Comment on above: Performed By: #### L 100.0100, L500.4050, L501.5200 ####[facility] [address] [place], [address] RBC (Bld) [#/Vol] 3.06 10*6/uL Low 4.6-6.2 [facility] Comment on above: Performed By: #### L 100.0100, L500.4050, L501.5200 ####[facility] [address] [place], [address] RDW SD 59.4 fl High 35.1-43.9 [facility] Comment on above: Performed By: #### L 100.0100, L500.4050, L501.5200 ####[facility] [address] [place], [address] WBC (Bld) [#/Vol] 6.5 10*3/uL Normal 4.4-11.0 [facility] Comment on above: Performed By: #### L 100.0100, L500.4050, L501.5200 ####[facility] [address] [place], [address] Comprehensive Metabolic [facility] 06-09-2024 Albumin [Mass/Vol] 2.9 g/dL Low 3.2-5.0 [facility] Comment on above: Performed By: #### L 100.0100, L500.4050, L501.5200 ####[facility] [address] [place], [address] Albumin/Globulin [Mass ratio] 1.1 {ratio} Normal 0.9-2.4 [facility] Comment on above: Performed By: #### L 100.0100, L500.4050, L501.5200 ####[facility] [address] [place], [address] ALK P 76 U/L Normal 45-117 [facility] Comment on above: Performed By: #### L 100.0100, L500.4050, L501.5200 ####[facility] [address] [place], [address] ALT [Catalytic activity/Vol] 12 U/L Low 16-61 [facility] Comment on above: Performed By: #### L 100.0100, L500.4050, L501.5200 ####[facility] [address] [place], [address] AST [Catalytic activity/Vol] 14 U/L Low 15-37 [facility] Comment on above: Performed By: #### L 100.0100, L500.4050, L501.5200 ####[facility] [address] [place], [address] Bilirubin [Mass/Vol] 0.60 mg/dL Normal 0.20-1.00 [facility] Comment on above: Result Comment: For patients on eltrombopag therapy, use of Dimension [place] TBIL is not recommended. Performed By: #### L 100.0100, L500.4050, L501.5200 ####[facility] [address] [place], [address] BUN/CRE 19.6 RATIO Normal 10-20 [facility] Comment on above: Performed By: #### L 100.0100, L500.4050, L501.5200 ####[facility] [address] [place], [address] CA,Total 7.9 mg/dL Low 8.5-10.1 [facility] Comment on above: Performed By: #### L 100.0100, L500.4050, L501.5200 ####[facility] [address] [place], [address] Chloride [Moles/Vol] 105 mmol/L Normal 98-107 [facility] Comment on above: Performed By: #### L 100.0100, L500.4050, L501.5200 ####[facility] [address] [place], [address] CO2 [Moles/Vol] 24.0 mmol/L Normal 21.0-32.0 [facility] Comment on above: Performed By: #### L 100.0100, L500.4050, L501.5200 ####[facility] [address] [place], [address] Creatinine [Mass/Vol] 1.12 mg/dL Normal 0.70-1.[address] [facility] Comment on above: Result Comment: The validity of the calculated GFR GFRAA in patients over70 years has not been determined. Clinical correlation isessential. Performed By: #### L 100.0100, L500.4050, L501.5200 ####[facility] [address] [place], [address] ECRCL 49.18 ml/min Normal [facility] Comment on above: Performed By: #### L 100.0100, L500.4050, L501.5200 ####[facility] [address] [place], [address] EST GFR - AA 81 mL/min Normal >60 [facility] Comment on above: Result Comment: Afri can [place] GFR Calc Performed By: #### L 100.0100, L500.4050, L501.5200 ####[facility] [address] [place], [address] GAP 5 Normal 5-15 [facility] Comment on above: Performed By: #### L 100.0100, L500.4050, L501.5200 ####[facility] [address] [place], [address] GFR/1.73 sq M.predicted among non-blacks MDRD (S/P/Bld) [Vol rate/Area] 67 mL/min/{1.73_m2} Normal >60 [facility] Comment on above: Result Comment: Non- GFR Calc Performed By: #### L 100.0100, L500.4050, L501.5200 ####[facility] [address] [place], [address] Globulin (S) [Mass/Vol] 2.6 g/dL Normal 2.2-4.2 [facility] Comment on above: Performed By: #### L 100.0100, L500.4050, L501.5200 ####[facility] [address] [place], [address] Glucose [Mass/Vol] 103 mg/dL Normal 74-106 [facility] Comment on above: Result Comment: Fast ing Glucose result from 100 to 125 mg/dLsuggests IMPAIRED HOMEOSTASIS per A.D.A. criteria. Performed By: #### L 100.0100, L500.4050, L501.5200 ####[facility] [address] [place], [address] Potassium [Moles/Vol] 3.9 mmol/L Normal 3.5-5.[address] [facility] Comment on above: Performed By: #### L 100.0100, L500.4050, L501.5200 ####[facility] [address] [place], [address] Sodium [Moles/Vol] 135 mmol/L Low 136-145 [facility] Comment on above: Performed By: #### L 100.0100, L500.4050, L501.5200 ####[facility] [address] [place], [address] T PROT 5.5 g/dL Low 6.4-8.2 [facility] Comment on above: Performed By: #### L 100.0100, L500.4050, L501.5200 ####[facility] [address] [place], [address] Urea nitrogen [Mass/Vol] 22 mg/dL High 7-18 [facility] Comment on above: Performed By: #### L 100.0100, L500.4050, L501.5200 ####[facility] [address] [place], [address] HH, Hemoglobin AND Hematocri ton 06-09-2024 Hematocrit (Bld) [Volume fraction] 27.8 % Low 40-54 [facility] Comment on above: Performed By: #### L 100.0600 ####[facility] [address] [place], [address] Hemoglobin (Bld) [Mass/Vol] 9.0 g/dL Low 13.0-16.5 [facility] Comment on above: Performed By: #### L 100.0600 ####[facility] [address] [place], [address] L501.4020on 06-09-2024 TROPONIN-I HS 88 pg/mL High 3.0-78.0 [facility] Comment on above: Order Comment: 'TROP ' Serial specimen #1, #2 or #3: 3 Result Comment: Debi vieyra Note: New Test Units and Gender Specific Reference Ranges. For more information see Policy Stat Procedure [place] High Sensitivity Troponin (TNIH) and attachments. Performed By: #### L 501.4020 ####[facility] [address] [place], [address] Magnesiumon 06-09-2024 Magnesium [Mass/Vol] 1.8 mg/dL Normal 1.6-2.6 [facility] Comment on above: Performed By: #### L 100.0100, L500.4050, L501.5200 ####[facility] [address] [place], [place], [id number] Type AND Screenon 06-09-2024 Ab SCREEN GEL Negative Normal [facility] Comment on above: Order Comment: CMV N EG? NNumber of units to transfuse: 1Reason for Ordering Blood: AcuteAre the blood/blood products to be transfused? YIs the patient having/had surgery? Claudine Goodman Performed By: #### Marco KANG, [facility] ####[facility] [address] [place], [place], [id number] ABO and Rh group Nom (Bld) Blood group O Rh(D) positive Normal [facility] Comment on above: Order Comment: CMV N EG? NNumber of units to transfuse: 1Reason for Ordering Blood: AcuteAre the blood/blood products to be transfused? YIs the patient having/had surgery? Claudine Goodman Performed By: #### Marco KANG, [facility]) ####[facility] [address] [place], [place], [id number] 12 Lead EKGon 06-08-2024 12 Lead EKG Normal [facility] BNP,B-Type NATRIURETIC PEPTI Иван 06-08-2024 Natriuretic peptide B (Bld) [Mass/Vol] 109.8 pg/mL High 0-100 [facility] Comment on above: Performed By: #### L 503.6620, L300.3900, L100.0100, L501.5425, L500.2500 ####[facility] [address] [place], [place], [id number] Basic Metabolic Profile (BMP )on 06-08-2024 BUN/CRE 18.2 RATIO Normal 10-20 [facility] Comment on above: Order Comment: 1Y Performed By: #### L 503.6620, L300.3900, L100.0100, L501.5425, L500.2500 ####[facility] [address] [place], [place], [phone] CA,Total 9.4 mg/dL Normal 8.5-10.1 [facility] Comment on above: Order Comment: 1Y Performed By: #### L 503.6620, L300.3900, L100.0100, L501.5425, L500.2500 ####[facility] [address] [place], [address] Chloride [Moles/Vol] 105 mmol/L Normal 98-107 [facility] Comment on above: Order Comment: 1Y Performed By: #### L 503.6620, L300.3900, L100.0100, L501.5425, L500.2500 ####[facility] [address] [place], [address] CO2 [Moles/Vol] 23.0 mmol/L Normal 21.0-32.0 [facility] Comment on above: Order Comment: 1Y Performed By: #### L 503.6620, L300.3900, L100.0100, L501.5425, L500.2500 ####[facility] [address] [place], [address] Creatinine [Mass/Vol] 1.21 mg/dL Normal 0.70-1.[address] [facility] Comment on above: Order Comment: 1Y Result Comment: The validity of the calculated GFR GFRAA in patients over70 years has not been determined. Clinical correlation isessential. Performed By: #### L 503.6620, L300.3900, L100.0100, L501.5425, L500.2500 ####[facility] [address] [place], [address] ECRCL 45.52 ml/min Normal [facility] Comment on above: Order Comment: 1Y Performed By: #### L 503.6620, L300.3900, L100.0100, L501.5425, L500.2500 ####[facility] [address] [place], [address] EST GFR - AA 74 mL/min Normal >60 [facility] Comment on above: Order Comment: 1Y Result Comment: Afri can [place] GFR Calc Performed By: #### L 503.6620, L300.3900, L100.0100, L501.5425, L500.2500 ####[facility] [address] [place], [address] GAP 8 Normal 5-15 [facility] Comment on above: Order Comment: 1Y Performed By: #### L 503.6620, L300.3900, L100.0100, L501.5425, L500.2500 ####[facility] [address] [place], [address] GFR/1.73 sq M.predicted among non-blacks MDRD (S/P/Bld) [Vol rate/Area] 61 mL/min/{1.73_m2} Normal >60 [facility] Comment on above: Order Comment: 1Y Result Comment: Non- GFR Calc Performed By: #### L 503.6620, L300.3900, L100.0100, L501.5425, L500.2500 ####[facility] [address] [place], [address] Glucose [Mass/Vol] 127 mg/dL High 74-106 [facility] Comment on above: Order Comment: 1Y Result Comment: Fast ing Glucose result greater than or equal to 126 mg/dLsuggests DIABETES MELLITUS per A.D.A. criteria. Performed By: #### L 503.6620, L300.3900, L100.0100, L501.5425, L500.2500 ####[facility] [address] [place], [address] Potassium [Moles/Vol] 3.8 mmol/L Normal 3.5-5.[address] [facility] Comment on above: Order Comment: 1Y Performed By: #### L 503.6620, L300.3900, L100.0100, L501.5425, L500.2500 ####[facility] [address] [place], [address] Sodium [Moles/Vol] 136 mmol/L Normal 136-145 [facility] Comment on above: Order Comment: 1Y Performed By: #### L 503.6620, L300.3900, L100.0100, L501.5425, L500.2500 ####[facility] [address] [place], [address] Urea nitrogen [Mass/Vol] 22 mg/dL High 7-18 [facility] Comment on above: Order Comment: 1Y Performed By: #### L 503.6620, L300.3900, L100.0100, L501.5425, L500.2500 ####[facility] [address] [place], [address] Biopsy/Inj or Needle Placeme nton 06-08-2023 Biopsy/Inj or Needle Placement Normal [facility] CBC W/Diff, Automatedon 11-0 -2023 Absolute Lymph 0.97 X10 3/uL Normal 0.83-4.51 [facility] Comment on above: Performed By: #### L 100.0100 ####[facility] [address] [place], [address] Absolute Neut 5.5 X10 3/uL Normal 2.0-7.7 [facility] Comment on above: Performed By: #### L 100.0100 ####[facility] [address] [place], [address] Basophils/100 WBC (Bld) 0.1 % Normal 0-1 [facility] Comment on above: Performed By: #### L 100.0100 ####[facility] [address] [place], [address] Eosinophils/100 WBC (Bld) 1.3 % Normal 0-5 [facility] Comment on above: Performed By: #### L 100.0100 ####[facility] [address] [place], [address] Erythrocyte distribution width (RBC) [Ratio] 18.9 % High 11.6-14.6 [facility] Comment on above: Performed By: #### L 100.0100 ####[facility] [address] [place], [address] Hematocrit (Bld) [Volume fraction] 27.6 % Low 40-54 [facility] Comment on above: Performed By: #### L 100.0100 ####[facility] [address] [place], [address] Hemoglobin (Bld) [Mass/Vol] 8.7 g/dL Low 13.0-16.5 [facility] Comment on above: Performed By: #### L 100.0100 ####[facility] [address] [place], [address] IG% 0.400 Normal 0.0-0.9 [facility] Comment on above: Result Comment: IG% - Immature Granulocytes (promyelocytes, myelocytes andmetamyelocytes) > 1% indicates that a LEFT SHIFT is Present. Performed By: #### L 100.0100 ####[facility] [address] [place], [address] Lymphocytes/100 WBC (Bld) 13.5 % Low 19-41 [facility] Comment on above: Performed By: #### L 100.0100 ####[facility] [address] [place], [address] MCH (RBC) [Entitic mass] 27.2 pg Normal 27.0-32.0 [facility] Comment on above: Performed By: #### L 100.0100 ####[facility] [address] [place], [address] MCHC (RBC) [Mass/Vol] 31.5 g/dL Low 32-[address] [facility] Comment on above: Performed By: #### L 100.0100 ####[facility] [address] [place], [address] MCV (RBC) [Entitic vol] 86.3 fL Normal 80-94 [facility] Comment on above: Performed By: #### L 100.0100 ####[facility] [address] [place], [address] Monocytes/100 WBC (Bld) 8.1 % Normal 0-10 [facility] Comment on above: Performed By: #### L 100.0100 ####[facility] [address] [place], [address] Neutrophils/100 WBC (Bld) 76.6 % High 47-70 [facility] Comment on above: Performed By: #### L 100.0100 ####[facility] [address] [place], [address] Nucleated RBC (Bld) [#/Vol] 0 10*3/uL Normal 0-5 [facility] Comment on above: Performed By: #### L 100.0100 ####[facility] [address] [place], [address] Platelet mean volume (Bld) [Entitic vol] 9.1 fL Normal 6.2-12.0 [facility] Comment on above: Performed By: #### L 100.0100 ####[facility] [address] [place], [address] Platelets (Bld) [#/Vol] 265 10*3/uL Normal 150-450 [facility] Comment on above: Performed By: #### L 100.0100 ####[facility] [address] [place], [address] RBC (Bld) [#/Vol] 3.20 10*6/uL Low 4.6-6.2 [facility] Comment on above: Performed By: #### L 100.0100 ####[facility] [address] [place], [address] RDW SD 58.9 fl High 35.1-43.9 [facility] Comment on above: Performed By: #### L 100.0100 ####[facility] [address] [place], [address] WBC (Bld) [#/Vol] 7.2 10*3/uL Normal 4.4-11.0 [facility] Comment on above: Performed By: #### L 100.0100 ####[facility] [facility] [address] [place], [address] Absolute Lymph 1.94 X10 3/uL Normal 0.83-4.51 [facility] Comment on above: Performed By: #### L 503.6620, L300.3900, L100.0100, L501.5425, L500.2500 ####[facility] [address] [place], [address] Absolute Neut 10.2 X10 3/uL High 2.0-7.7 [facility] Comment on above: Performed By: #### L 503.6620, L300.3900, L100.0100, L501.5425, L500.2500 ####[facility] [address] [place], [address] Basophils/100 WBC (Bld) 0.2 % Normal 0-1 [facility] Comment on above: Performed By: #### L 503.6620, L300.3900, L100.0100, L501.5425, L500.2500 ####[facility] [address] [place], [address] Eosinophils/100 WBC (Bld) 1.6 % Normal 0-5 [facility] Comment on above: Performed By: #### L 503.6620, L300.3900, L100.0100, L501.5425, L500.2500 ####[facility] [address] [place], [address] Erythrocyte distribution width (RBC) [Ratio] 18.9 % High 11.6-14.6 [facility] Comment on above: Performed By: #### L 503.6620, L300.3900, L100.0100, L501.5425, L500.2500 ####[facility] [address] [place], [address] Hematocrit (Bld) [Volume fraction] 35.8 % Low 40-54 [facility] Comment on above: Performed By: #### L 503.6620, L300.3900, L100.0100, L501.5425, L500.2500 ####[facility] [address] [place], [address] Hemoglobin (Bld) [Mass/Vol] 11.1 g/dL Low 13.0-16.5 [facility] Comment on above: Performed By: #### L 503.6620, L300.3900, L100.0100, L501.5425, L500.2500 ####[facility] [address] [place], [address] IG% 0.600 Normal 0.0-0.9 [facility] Comment on above: Result Comment: IG% - Immature Granulocytes (promyelocytes, myelocytes andmetamyelocytes) > 1% indicates that a LEFT SHIFT is Present. Performed By: #### L 503.6620, L300.3900, L100.0100, L501.5425, L500.2500 ####[facility] [address] [place], [address] Lymphocytes/100 WBC (Bld) 14.5 % Low 19-41 [facility] Comment on above: Performed By: #### L 503.6620, L300.3900, L100.0100, L501.5425, L500.2500 ####[facility] [address] [place], [address] MCH (RBC) [Entitic mass] 26.5 pg Low 27.0-32.0 [facility] Comment on above: Performed By: #### L 503.6620, L300.3900, L100.0100, L501.5425, L500.2500 ####[facility] [address] [place], [address] MCHC (RBC) [Mass/Vol] 31.0 g/dL Low 32-[address] [facility] Comment on above: Performed By: #### L 503.6620, L300.3900, L100.0100, L501.5425, L500.2500 ####[facility] [address] [place], [address] MCV (RBC) [Entitic vol] 85.4 fL Normal 80-94 [facility] Comment on above: Performed By: #### L 503.6620, L300.3900, L100.0100, L501.5425, L500.2500 ####[facility] [address] [place], [address] Monocytes/100 WBC (Bld) 6.7 % Normal 0-10 [facility] Comment on above: Performed By: #### L 503.6620, L300.3900, L100.0100, L501.5425, L500.2500 ####[facility] [address] [place], [address] Neutrophils/100 WBC (Bld) 76.4 % High 47-70 [facility] Comment on above: Performed By: #### L 503.6620, L300.3900, L100.0100, L501.5425, L500.2500 ####[facility] [address] [place], [address] Nucleated RBC (Bld) [#/Vol] 0 10*3/uL Normal 0-5 [facility] Comment on above: Performed By: #### L 503.6620, L300.3900, L100.0100, L501.5425, L500.2500 ####[facility] [address] [place], [address] Platelet mean volume (Bld) [Entitic vol] 9.8 fL Normal 6.2-12.0 [facility] Comment on above: Performed By: #### L 503.6620, L300.3900, L100.0100, L501.5425, L500.2500 ####[facility] [address] [place], [address] Platelets (Bld) [#/Vol] 372 10*3/uL Normal 150-450 [facility] Comment on above: Performed By: #### L 503.6620, L300.3900, L100.0100, L501.5425, L500.2500 ####[facility] [address] [place], [address] RBC (Bld) [#/Vol] 4.19 10*6/uL Low 4.6-6.2 [facility] Comment on above: Performed By: #### L 503.6620, L300.3900, L100.0100, L501.5425, L500.2500 ####[facility] [address] [place], [address] RDW SD 57.8 fl High 35.1-43.9 [facility] Comment on above: Performed By: #### L 503.6620, L300.3900, L100.0100, L501.5425, L500.2500 ####[facility] [address] [place], [address] WBC (Bld) [#/Vol] 13.4 10*3/uL High 4.4-11.0 [facility] Comment on above: Performed By: #### L 503.6620, L300.3900, L100.0100, L501.5425, L500.2500 ####[facility] [address] [place], [address] Absolute Lymph 1.50 X10 3/uL Normal 0.83-4.51 [facility] Comment on above: Performed By: #### L 300.4310, L100.0100, L300.3900 ####[facility] [address] [place], [address] Absolute Neut 4.2 X10 3/uL Normal 2.0-7.7 [facility] Comment on above: Performed By: #### L 300.4310, L100.0100, L300.3900 ####[facility] [address] [place], [address] Basophils/100 WBC (Bld) 0.4 % Normal 0-1 [facility] Comment on above: Performed By: #### L 300.4310, L100.0100, L300.3900 ####[facility] [address] [place], [address] Eosinophils/100 WBC (Bld) 4.9 % Normal 0-5 [facility] Comment on above: Performed By: #### L 300.4310, L100.0100, L300.3900 ####[facility] [address] [place], [address] Erythrocyte distribution width (RBC) [Ratio] 18.9 % High 11.6-14.6 [facility] Comment on above: Performed By: #### L 300.4310, L100.0100, L300.3900 ####[facility] [address] [place], [address] Hematocrit (Bld) [Volume fraction] 36.2 % Low 40-54 [facility] Comment on above: Performed By: #### L 300.4310, L100.0100, L300.3900 ####[facility] [address] [place], [address] Hemoglobin (Bld) [Mass/Vol] 11.4 g/dL Low 13.0-16.5 [facility] Comment on above: Performed By: #### L 300.4310, L100.0100, L300.3900 ####[facility] [address] [place], [address] IG% 0.400 Normal 0.0-0.9 [facility] Comment on above: Result Comment: IG% - Immature Granulocytes (promyelocytes, myelocytes andmetamyelocytes) > 1% indicates that a LEFT SHIFT is Present. Performed By: #### L 300.4310, L100.0100, L300.3900 ####[facility] [address] [place], [address] Lymphocytes/100 WBC (Bld) 21.6 % Normal 19-41 [facility] Comment on above: Performed By: #### L 300.4310, L100.0100, L300.3900 ####[facility] [address] [place], [address] MCH (RBC) [Entitic mass] 26.8 pg Low 27.0-32.0 [facility] Comment on above: Performed By: #### L 300.4310, L100.0100, L300.3900 ####[facility] [address] [place], [address] MCHC (RBC) [Mass/Vol] 31.5 g/dL Low 32-[address] [facility] Comment on above: Performed By: #### L 300.4310, L100.0100, L300.3900 ####[facility] [address] [place], [address] MCV (RBC) [Entitic vol] 85.2 fL Normal 80-94 [facility] Comment on above: Performed By: #### L 300.4310, L100.0100, L300.3900 ####[facility] [address] [place], [address] Monocytes/100 WBC (Bld) 11.8 % High 0-10 [facility] Comment on above: Performed By: #### L 300.4310, L100.0100, L300.3900 ####[facility] [address] [place], [address] Neutrophils/100 WBC (Bld) 60.9 % Normal 47-70 [facility] Comment on above: Performed By: #### L 300.4310, L100.0100, L300.3900 ####[facility] [address] [place], [address] Nucleated RBC (Bld) [#/Vol] 0 10*3/uL Normal 0-5 [facility] Comment on above: Performed By: #### L 300.4310, L100.0100, L300.3900 ####[facility] [address] [place], [address] Platelet mean volume (Bld) [Entitic vol] 9.5 fL Normal 6.2-12.0 [facility] Comment on above: Performed By: #### L 300.4310, L100.0100, L300.3900 ####[facility] [address] [place], [address] Platelets (Bld) [#/Vol] 344 10*3/uL Normal 150-450 [facility] Comment on above: Performed By: #### L 300.4310, L100.0100, L300.3900 ####[facility] [address] [place], [address] RBC (Bld) [#/Vol] 4.25 10*6/uL Low 4.6-6.2 [facility] Comment on above: Performed By: #### L 300.4310, L100.0100, L300.3900 ####[facility] [address] [place], [address] RDW SD 57.6 fl High 35.1-43.9 [facility] Comment on above: Performed By: #### L 300.4310, L100.0100, L300.3900 ####[facility] [address] [place], [address] WBC (Bld) [#/Vol] 6.9 10*3/uL Normal 4.4-11.0 [facility] Comment on above: Performed By: #### L 300.4310, L100.0100, L300.3900 ####[facility] [address] [place], [address] CBC-Complete Blood Cnt No Di ffon 06-08-2024 Erythrocyte distribution width (RBC) [Ratio] 18.8 % High 11.6-14.6 [facility] Comment on above: Performed By: #### L 100.0500 ####[facility] [address] [place], [address] Hematocrit (Bld) [Volume fraction] 30.7 % Low 40-54 [facility] Comment on above: Performed By: #### L 100.0500 ####[facility] [address] [place], [address] Hemoglobin (Bld) [Mass/Vol] 9.8 g/dL Low 13.0-16.5 [facility] Comment on above: Performed By: #### L 100.0500 ####[facility] [address] [place], [address] MCH (RBC) [Entitic mass] 27.1 pg Normal 27.0-32.0 [facility] Comment on above: Performed By: #### L 100.0500 ####[facility] [address] [place], [address] MCHC (RBC) [Mass/Vol] 31.9 g/dL Low 32-[address] [facility] Comment on above: Performed By: #### L 100.0500 ####[facility] [address] [place], [address] MCV (RBC) [Entitic vol] 84.8 fL Normal 80-94 [facility] Comment on above: Performed By: #### L 100.0500 ####[facility] [address] [place], [address] Platelet mean volume (Bld) [Entitic vol] 9.1 fL Normal 6.2-12.0 [facility] Comment on above: Performed By: #### L 100.0500 ####[facility] [address] [place], [address] Platelets (Bld) [#/Vol] 284 10*3/uL Normal 150-450 [facility] Comment on above: Performed By: #### L 100.0500 ####[facility] [address] [place], [address] RBC (Bld) [#/Vol] 3.62 10*6/uL Low 4.6-6.2 [facility] Comment on above: Performed By: #### L 100.0500 ####[facility] [address] [place], [address] RDW SD 57.6 fl High 35.1-43.9 [facility] Comment on above: Performed By: #### L 100.0500 ####[facility] [address] [place], [address] WBC (Bld) [#/Vol] 9.9 10*3/uL Normal 4.4-11.0 [facility] Comment on above: Performed By: #### L 100.0500 ####[facility] [address] [place], [address] CTA Chst, Abd, Pel W and/or WOon 06-08-2024 CTA Chst, Abd, Pel W and/or WO Normal [facility] Chest 1 View (Portable)on Chest 1 View (Portable) Normal [facility] Emergency Department Summary on 06-08-2024 Emergency Department Summary Normal [facility] H AND P Exam - Hospitaliston 06-08-2024 H&P Exam - Hospitalist Normal [facility] L501.4020on 06-08-2024 TROPONIN-I HS 96 pg/mL High 3.0-78.0 [facility] Comment on above: Result Comment: Plea se Note: New Test Units and Gender Specific Reference Ranges. For more information see Policy Stat Procedure [place] High Sensitivity Troponin (TNIH) and attachments. Performed By: #### L 501.4020 ####[facility] [address] [place], [address] L501.5425on 06-08-2024 TROPONIN-I HS 97 pg/mL High 3.0-78.0 [facility] Comment on above: Order Comment: 1Y Result Comment: Plea se Note: New Test Units and Gender Specific Reference Ranges. For more information see Policy Stat Procedure [place] High Sensitivity Troponin (TNIH) and attachments. Performed By: #### L 503.6620, L300.3900, L100.0100, L501.5425, L500.2500 ####[facility] [address] [place], [address] Lipaseon 06-08-2024 Lipase [Catalytic activity/Vol] 26 U/L Normal 13-75 [facility] Comment on above: Result Comment: Plea se note:LIPASE revised reference range effective 22.New Lipase methodology. Expected to produce lower valuesthan the previous assay method.NEW Reference Range: 13 - 75 U/L Performed By: #### L 500.3400, L501.2450 ####[facility] [address] [place], [address] Liver Profileon 06-08-2024 Albumin [Mass/Vol] 3.6 g/dL Normal 3.2-5.0 [facility] Comment on above: Performed By: #### L 500.3400, L501.2450 ####[facility] [address] [place], [address] ALK P 103 U/L Normal 45-117 [facility] Comment on above: Performed By: #### L 500.3400, L501.2450 ####[facility] [address] [place], [address] ALT [Catalytic activity/Vol] 20 U/L Normal 16-61 [facility] Comment on above: Performed By: #### L 500.3400, L501.2450 ####[facility] [address] [place], [address] AST [Catalytic activity/Vol] 23 U/L Normal 15-37 [facility] Comment on above: Performed By: #### L 500.3400, L501.2450 ####[facility] [address] [place], [address] Bilirubin [Mass/Vol] 0.60 mg/dL Normal 0.20-1.00 [facility] Comment on above: Result Comment: For patients on eltrombopag therapy, use of Dimension [place] TBIL is not recommended. Performed By: #### L 500.3400, L501.2450 ####[facility] [address] [place], [address] Bilirubin.direct [Mass/Vol] 0.18 mg/dL Normal 0.00-0.30 [facility] Comment on above: Performed By: #### L 500.3400, L501.2450 ####[facility] [address] [place], [address] Globulin (S) [Mass/Vol] 3.5 g/dL Normal 2.2-4.2 [facility] Comment on above: Performed By: #### L 500.3400, L501.2450 ####[facility] [address] [place], [address] T PROT 7.1 g/dL Normal 6.4-8.2 [facility] Comment on above: Performed By: #### L 500.3400, L501.2450 ####[facility] [address] [place], [address] Partial Thromboplast Timeon 06-08-2024 aPTT Coag (Bld) [Time] 32.9 s Normal 24.1-36.2 [facility] Comment on above: Performed By: #### L 300.4310, L100.0100, L300.3900 ####[facility] [address] [place], [address] Prothrombin Time w/INRon INR Coag (PPP) [Relative time] 1.1 {INR} Normal [facility] Comment on above: Performed By: #### L 503.6620, L300.3900, L100.0100, L501.5425, L500.2500 ####[facility] [address] [place], [address] PT Coag (PPP) [Time] 14.3 s Normal 11.7-14.9 [facility] Comment on above: Performed By: #### L 503.6620, L300.3900, L100.0100, L501.5425, L500.2500 ####[facility] [address] [place], [address] INR Coag (PPP) [Relative time] 1.1 {INR} Normal [facility] Comment on above: Performed By: #### L 300.4310, L100.0100, L300.3900 ####[facility] [address] [place], [address] PT Coag (PPP) [Time] 13.9 s Normal 11.7-14.9 [facility] Comment on above: Performed By: #### L 300.4310, L100.0100, L300.3900 ####[facility] [address] [place], [address] Trichrome (control)on 2023 Trichrome (control) Normal [facility] Comment on above: Performed By: #### P TRI ####[facility] [address] [place], [address] 12 Lead EKGon 06-07-2024 12 Lead EKG Normal [facility] Basic Metabolic Profile (BMP )on 06-07-2024 BUN/CRE 18.3 RATIO Normal 10-20 [facility] Comment on above: Performed By: #### L 500.2500, L100.0100 ####[facility] [address] [place], [address] CA,Total 9.7 mg/dL Normal 8.5-10.1 [facility] Comment on above: Performed By: #### L 500.2500, L100.0100 ####[facility] [address] [place], [address] Chloride [Moles/Vol] 103 mmol/L Normal 98-107 [facility] Comment on above: Performed By: #### L 500.2500, L100.0100 ####[facility] [address] [place], [address] CO2 [Moles/Vol] 26.0 mmol/L Normal 21.0-32.0 [facility] Comment on above: Performed By: #### L 500.2500, L100.0100 ####[facility] [address] [place], [address] Creatinine [Mass/Vol] 1.04 mg/dL Normal 0.70-1.[address] [facility] Comment on above: Result Comment: The validity of the calculated GFR GFRAA in patients over70 years has not been determined. Clinical correlation isessential. Performed By: #### L 500.2500, L100.0100 ####[facility] [address] [place], [address] ECRCL 52.96 ml/min Normal [facility] Comment on above: Performed By: #### L 500.2500, L100.0100 ####[facility] [address] [place], [address] EST GFR - AA 88 mL/min Normal >60 [facility] Comment on above: Result Comment: Afri can [place] GFR Calc Performed By: #### L 500.2500, L100.0100 ####[facility] [address] [place], [address] GAP 7 Normal 5-15 [facility] Comment on above: Performed By: #### L 500.2500, L100.0100 ####[facility] [address] [place], [address] GFR/1.73 sq M.predicted among non-blacks MDRD (S/P/Bld) [Vol rate/Area] 73 mL/min/{1.73_m2} Normal >60 [facility] Comment on above: Result Comment: Non- GFR Calc Performed By: #### L 500.2500, L100.0100 ####[facility] [address] [place], [address] Glucose [Mass/Vol] 101 mg/dL Normal 74-106 [facility] Comment on above: Result Comment: Fast ing Glucose result from 100 to 125 mg/dLsuggests IMPAIRED HOMEOSTASIS per A.D.A. criteria. Performed By: #### L 500.2500, L100.0100 ####[facility] [address] [place], [address] Potassium [Moles/Vol] 4.1 mmol/L Normal 3.5-5.[address] [facility] Comment on above: Performed By: #### L 500.2500, L100.0100 ####[facility] [address] [place], [address] Sodium [Moles/Vol] 136 mmol/L Normal 136-145 [facility] Comment on above: Performed By: #### L 500.2500, L100.0100 ####[facility] [address] [place], [address] Urea nitrogen [Mass/Vol] 19 mg/dL High 7-18 [facility] Comment on above: Performed By: #### L 500.2500, L100.0100 ####[facility] [address] [place], [address] CBC W/Diff, Automatedon 11-0 7-4 Absolute Lymph 1.13 X10 3/uL Normal 0.83-4.51 [facility] Comment on above: Performed By: #### L 500.2500, L100.0100 ####[facility] [address] [place], [address] Absolute Neut 3.7 X10 3/uL Normal 2.0-7.7 [facility] Comment on above: Performed By: #### L 500.2500, L100.0100 ####[facility] [address] [place], [address] Basophils/100 WBC (Bld) 0.4 % Normal 0-1 [facility] Comment on above: Performed By: #### L 500.2500, L100.0100 ####[facility] [address] [place], [address] Eosinophils/100 WBC (Bld) 4.1 % Normal 0-5 [facility] Comment on above: Performed By: #### L 500.2500, L100.0100 ####[facility] [address] [place], [address] Erythrocyte distribution width (RBC) [Ratio] 18.9 % High 11.6-14.6 [facility] Comment on above: Performed By: #### L 500.2500, L100.0100 ####[facility] [address] [place], [address] Hematocrit (Bld) [Volume fraction] 35.0 % Low 40-54 [facility] Comment on above: Performed By: #### L 500.2500, L100.0100 ####[facility] [address] [place], [address] Hemoglobin (Bld) [Mass/Vol] 11.1 g/dL Low 13.0-16.5 [facility] Comment on above: Performed By: #### L 500.2500, L100.0100 ####[facility] [address] [place], [address] IG% 0.400 Normal 0.0-0.9 [facility] Comment on above: Result Comment: IG% - Immature Granulocytes (promyelocytes, myelocytes andmetamyelocytes) > 1% indicates that a LEFT SHIFT is Present. Performed By: #### L 500.2500, L100.0100 ####[facility] [address] [place], [address] Lymphocytes/100 WBC (Bld) 20.0 % Normal 19-41 [facility] Comment on above: Performed By: #### L 500.2500, L100.0100 ####[facility] [address] [place], [address] MCH (RBC) [Entitic mass] 27.1 pg Normal 27.0-32.0 [facility] Comment on above: Performed By: #### L 500.2500, L100.0100 ####[facility] [address] [place], [address] MCHC (RBC) [Mass/Vol] 31.7 g/dL Low 32-[address] [facility] Comment on above: Performed By: #### L 500.2500, L100.0100 ####[facility] [address] [place], [address] MCV (RBC) [Entitic vol] 85.4 fL Normal 80-94 [facility] Comment on above: Performed By: #### L 500.2500, L100.0100 ####[facility] [address] [place], [address] Monocytes/100 WBC (Bld) 10.4 % High 0-10 [facility] Comment on above: Performed By: #### L 500.2500, L100.0100 ####[facility] [address] [place], [address] Neutrophils/100 WBC (Bld) 64.7 % Normal 47-70 [facility] Comment on above: Performed By: #### L 500.2500, L100.0100 ####[facility] [address] [place], [address] Nucleated RBC (Bld) [#/Vol] 0 10*3/uL Normal 0-5 [facility] Comment on above: Performed By: #### L 500.2500, L100.0100 ####[facility] [address] [place], [address] Platelet mean volume (Bld) [Entitic vol] 9.5 fL Normal 6.2-12.0 [facility] Comment on above: Performed By: #### L 500.2500, L100.0100 ####[facility] [address] [place], [address] Platelets (Bld) [#/Vol] 301 10*3/uL Normal 150-450 [facility] Comment on above: Performed By: #### L 500.2500, L100.0100 ####[facility] [address] [place], [address] RBC (Bld) [#/Vol] 4.10 10*6/uL Low 4.6-6.2 [facility] Comment on above: Performed By: #### L 500.2500, L100.0100 ####[facility] [address] [place], [address] RDW SD 57.8 fl High 35.1-43.9 [facility] [facility] Comment on above: Performed By: #### L 500.2500, L100.0100 ####[facility] [address] [place], [address] WBC (Bld) [#/Vol] 5.7 10*3/uL Normal 4.4-11.0 [facility] Comment on above: Performed By: #### L 500.2500, L100.0100 ####[facility] [address] [place], [address] Emergency Department Summary on 06-07-2024 Emergency Department Summary Normal [facility] Surgery Visit Reporton 06-07 Surgery Visit Report Normal [facility] Oncology Visit Reporton 05-03 Oncology Visit Report Normal [facility] PET/CT Tumor Base -Thigh Ini ton 05-29-2024 PET/CT Tumor Base -Thigh Init Normal [facility] Carcinoembryonic Antigenon 1 CEA 2.2 ng/mL Normal 0.0-4.7 [facility] Comment on above: Order Comment: Speci men Comment: A duplicate report has been generateddue to demographicSpecimen Comment: updates. Result Comment: Nons mokers <3.9 Smokers <5.6[employer] Electrochemiluminescence Immunoassay(ECLIA)Values obtained with different assay methods or kitscannot be used interchangeably. Results cannot beinterpreted as absolute evidence of the presence orabsence of malignant disease.Performed at: [facility] [address] [id number] Director: Jian Paredes PhD, Phone: [phone] Performed By: #### L 3100.2300, L503.6550 ####[facility] [address] [facility] [place], [address] C-reactive protein measureme nt by high sensitivity methodOrdered By: Papi Hernandez on 05-16-2024 C-Reactive Protein Extended Range 5.71 mg/L High 0.0-3.0 [facility] Comment on above: C-Reactive Protein ( CRP) provides useful information for thediagnosis, therapy and monitoring of inflammatory processesand associated diseases. For the evaluation of Relative Riskfor Cardiovascular Disease, a High Sensitivity CRP (HSCRP)should be ordered. C-reactive protein measurement by high sensitivity method 5.71 mg/L High 0.0-3.0 [facility] Comment on above: C-Reactive Protein ( CRP) provides useful information for thediagnosis, therapy and monitoring of inflammatory processesand associated diseases. For the evaluation of Relative Riskfor Cardiovascular Disease, a High Sensitivity CRP (HSCRP)should be ordered. CBC W/Diff, Automatedon 05-01 Absolute Lymph 1.28 X10 3/uL Normal 0.83-4.51 [facility] Comment on above: Performed By: #### L 101.9900, L100.9950, L503.6030, L501.6710, L100.0100, L500.4050, L900.0098 ####[facility] [address] [place], [address] Absolute Neut 3.8 X10 3/uL Normal 2.0-7.7 [facility] Comment on above: Performed By: #### L 101.9900, L100.9950, L503.6030, L501.6710, L100.0100, L500.4050, L900.0098 ####[facility] [address] [place], [address] Basophils/100 WBC (Bld) 0.3 % Normal 0-1 [facility] Comment on above: Performed By: #### L 101.9900, L100.9950, L503.6030, L501.6710, L100.0100, L500.4050, L900.0098 ####[facility] [address] [place], [address] Eosinophils/100 WBC (Bld) 2.6 % Normal 0-5 [facility] Comment on above: Performed By: #### L 101.9900, L100.9950, L503.6030, L501.6710, L100.0100, L500.4050, L900.0098 ####[facility] [address] [place], [address] Erythrocyte distribution width (RBC) [Ratio] 14.2 % Normal 11.6-14.6 [facility] Comment on above: Performed By: #### L 101.9900, L100.9950, L503.6030, L501.6710, L100.0100, L500.4050, L900.0098 ####[facility] [address] [place], [address] Hematocrit (Bld) [Volume fraction] 30.5 % Low 40-54 [facility] Comment on above: Performed By: #### L 101.9900, L100.9950, L503.6030, L501.6710, L100.0100, L500.4050, L900.0098 ####[facility] [address] [place], [address] Hemoglobin (Bld) [Mass/Vol] 9.6 g/dL Low 13.0-16.5 [facility] Comment on above: Performed By: #### L 101.9900, L100.9950, L503.6030, L501.6710, L100.0100, L500.4050, L900.0098 ####[facility] [address] [place], [address] IG% 0.300 Normal 0.0-0.9 [facility] Comment on above: Result Comment: IG% - Immature Granulocytes (promyelocytes, myelocytes andmetamyelocytes) > 1% indicates that a LEFT SHIFT is Present. Performed By: #### L 101.9900, L100.9950, L503.6030, L501.6710, L100.0100, L500.4050, L900.0098 ####[facility] [address] [place], [address] Lymphocytes/100 WBC (Bld) 21.9 % Normal 19-41 [facility] Comment on above: Performed By: #### L 101.9900, L100.9950, L503.6030, L501.6710, L100.0100, L500.4050, L900.0098 ####[facility] [address] [place], [address] MCH (RBC) [Entitic mass] 25.9 pg Low 27.0-32.0 [facility] Comment on above: Performed By: #### L 101.9900, L100.9950, L503.6030, L501.6710, L100.0100, L500.4050, L900.0098 ####[facility] [address] [place], [address] MCHC (RBC) [Mass/Vol] 31.5 g/dL Low 32-[address] [facility] Comment on above: Performed By: #### L 101.9900, L100.9950, L503.6030, L501.6710, L100.0100, L500.4050, L900.0098 ####[facility] [address] [place], [address] MCV (RBC) [Entitic vol] 82.2 fL Normal 80-94 [facility] Comment on above: Performed By: #### L 101.9900, L100.9950, L503.6030, L501.6710, L100.0100, L500.4050, L900.0098 ####[facility] [address] [place], [address] Monocytes/100 WBC (Bld) 9.6 % Normal 0-10 [facility] Comment on above: Performed By: #### L 101.9900, L100.9950, L503.6030, L501.6710, L100.0100, L500.4050, L900.0098 ####[facility] [address] [place], [address] Neutrophils/100 WBC (Bld) 65.3 % Normal 47-70 [facility] Comment on above: Performed By: #### L 101.9900, L100.9950, L503.6030, L501.6710, L100.0100, L500.4050, L900.0098 ####[facility] [address] [place], [address] Nucleated RBC (Bld) [#/Vol] 0 10*3/uL Normal 0-5 [facility] Comment on above: Performed By: #### L 101.9900, L100.9950, L503.6030, L501.6710, L100.0100, L500.4050, L900.0098 ####[facility] [address] [place], [address] Platelet mean volume (Bld) [Entitic vol] 9.1 fL Normal 6.2-12.0 [facility] Comment on above: Performed By: #### L 101.9900, L100.9950, L503.6030, L501.6710, L100.0100, L500.4050, L900.0098 ####[facility] [address] [place], [address] Platelets (Bld) [#/Vol] 373 10*3/uL Normal 150-450 [facility] Comment on above: Performed By: #### L 101.9900, L100.9950, L503.6030, L501.6710, L100.0100, L500.4050, L900.0098 ####[facility] [address] [place], [address] RBC (Bld) [#/Vol] 3.71 10*6/uL Low 4.6-6.2 [facility] Comment on above: Performed By: #### L 101.9900, L100.9950, L503.6030, L501.6710, L100.0100, L500.4050, L900.0098 ####[facility] [address] [place], [address] RDW SD 42.2 fl Normal 35.1-43.9 [facility] Comment on above: Performed By: #### L 101.9900, L100.9950, L503.6030, L501.6710, L100.0100, L500.4050, L900.0098 ####[facility] [address] [place], [address] WBC (Bld) [#/Vol] 5.8 10*3/uL Normal 4.4-11.0 [facility] Comment on above: Performed By: #### L 101.9900, L100.9950, L503.6030, L501.6710, L100.0100, L500.4050, L900.0098 ####[facility] [address] [place], [address] CRPon 05-16-2024 C-REACTIVE PROT 5.71 mg/L High 0.0-3.0 [facility] Comment on above: Result Comment: C-Re active Protein (CRP) provides useful information for thediagnosis, therapy and monitoring of inflammatory processesand associated diseases. For the evaluation of Relative Riskfor Cardiovascular Disease, a High Sensitivity CRP (HSCRP)should be ordered. Performed By: #### L 101.9900, L100.9950, L503.6030, L501.6710, L100.0100, L500.4050, L900.0098 ####[facility] [address] [place], [address] Comprehensive Metabolic Prof ilon 05-16-2024 Albumin [Mass/Vol] 3.9 g/dL Normal 3.2-5.0 [facility] Comment on above: Performed By: #### L 101.9900, L100.9950, L503.6030, L501.6710, L100.0100, L500.4050, L900.0098 ####[facility] [address] [place], [place], [address] Albumin/Globulin [Mass ratio] 1.1 {ratio} Normal 0.9-2.4 [facility] Comment on above: Performed By: #### L 101.9900, L100.9950, L503.6030, L501.6710, L100.0100, L500.4050, L900.0098 ####[facility] [address] [place], [address] ALK P 101 U/L Normal 45-117 [facility] Comment on above: Performed By: #### L 101.9900, L100.9950, L503.6030, L501.6710, L100.0100, L500.4050, L900.0098 ####[facility] [address] [place], [address] ALT [Catalytic activity/Vol] 19 U/L Normal 16-61 [facility] Comment on above: Performed By: #### L 101.9900, L100.9950, L503.6030, L501.6710, L100.0100, L500.4050, L900.0098 ####[facility] [address] [place], [address] AST [Catalytic activity/Vol] 15 U/L Normal 15-37 [facility] Comment on above: Performed By: #### L 101.9900, L100.9950, L503.6030, L501.6710, L100.0100, L500.4050, L900.0098 ####[facility] [address] [place], [address] Bilirubin [Mass/Vol] 0.50 mg/dL Normal 0.20-1.00 [facility] Comment on above: Result Comment: For patients on eltrombopag therapy, use of Dimension [place] TBIL is not recommended. Performed By: #### L 101.9900, L100.9950, L503.6030, L501.6710, L100.0100, L500.4050, L900.0098 ####[facility] [address] [place], [address] BUN/CRE 16.7 RATIO Normal 10-20 [facility] Comment on above: Performed By: #### L 101.9900, L100.9950, L503.6030, L501.6710, L100.0100, L500.4050, L900.0098 ####[facility] [address] [place], [address] CA,Total 9.6 mg/dL Normal 8.5-10.1 [facility] Comment on above: Performed By: #### L 101.9900, L100.9950, L503.6030, L501.6710, L100.0100, L500.4050, L900.0098 ####[facility] [address] [place], [address] Chloride [Moles/Vol] 105 mmol/L Normal 98-107 [facility] Comment on above: Performed By: #### L 101.9900, L100.9950, L503.6030, L501.6710, L100.0100, L500.4050, L900.0098 ####[facility] [address] [place], [address] CO2 [Moles/Vol] 26.0 mmol/L Normal 21.0-32.0 [facility] Comment on above: Performed By: #### L 101.9900, L100.9950, L503.6030, L501.6710, L100.0100, L500.4050, L900.0098 ####[facility] [address] [place], [address] Creatinine [Mass/Vol] 1.14 mg/dL Normal 0.70-1.[address] [facility] Comment on above: Result Comment: The validity of the calculated GFR GFRAA in patients over70 years has not been determined. Clinical correlation isessential. Performed By: #### L 101.9900, L100.9950, L503.6030, L501.6710, L100.0100, L500.4050, L900.0098 ####[facility] [address] [place], [address] EST GFR - AA 79 mL/min Normal >60 [facility] Comment on above: Result Comment: Afri can [place] GFR Calc Performed By: #### L 101.9900, L100.9950, L503.6030, L501.6710, L100.0100, L500.4050, L900.0098 ####[facility] [address] [place], [address] GAP 4 Low 5-15 [facility] Comment on above: Performed By: #### L 101.9900, L100.9950, L503.6030, L501.6710, L100.0100, L500.4050, L900.0098 ####[facility] [address] [place], [address] GFR/1.73 sq M.predicted among non-blacks MDRD (S/P/Bld) [Vol rate/Area] 66 mL/min/{1.73_m2} Normal >60 [facility] Comment on above: Result Comment: Non- GFR Calc Performed By: #### L 101.9900, L100.9950, L503.6030, L501.6710, L100.0100, L500.4050, L900.0098 ####[facility] [address] [place], [address] Globulin (S) [Mass/Vol] 3.7 g/dL Normal 2.2-4.2 [facility] Comment on above: Performed By: #### L 101.9900, L100.9950, L503.6030, L501.6710, L100.0100, L500.4050, L900.0098 ####[facility] [address] [place], [address] Glucose [Mass/Vol] 102 mg/dL Normal 74-106 [facility] Comment on above: Result Comment: Fast ing Glucose result from 100 to 125 mg/dLsuggests IMPAIRED HOMEOSTASIS per A.D.A. criteria. Performed By: #### L 101.9900, L100.9950, L503.6030, L501.6710, L100.0100, L500.4050, L900.0098 ####[facility] [address] [place], [address] Potassium [Moles/Vol] 4.4 mmol/L Normal 3.5-5.[address] [facility] Comment on above: Performed By: #### L 101.9900, L100.9950, L503.6030, L501.6710, L100.0100, L500.4050, L900.0098 ####[facility] [address] [place], [address] Sodium [Moles/Vol] 135 mmol/L Low 136-145 [facility] Comment on above: Performed By: #### L 101.9900, L100.9950, L503.6030, L501.6710, L100.0100, L500.4050, L900.0098 ####[facility] [address] [place], [address] T PROT 7.6 g/dL Normal 6.4-8.2 [facility] Comment on above: Performed By: #### L 101.9900, L100.9950, L503.6030, L501.6710, L100.0100, L500.4050, L900.0098 ####[facility] [address] [place], [address] Urea nitrogen [Mass/Vol] 19 mg/dL High 7-18 [facility] Comment on above: Performed By: #### L 101.9900, L100.9950, L503.6030, L501.6710, L100.0100, L500.4050, L900.0098 ####[facility] [address] [place], [address] Erythrocyte Sed Rateon 05-16 SED RATE 13 mm/hr Normal 0-20 [facility] Comment on above: Performed By: #### L 101.9900, L100.9950, L503.6030, L501.6710, L100.0100, L500.4050, L900.0098 ####[facility] [address] [place], [address] Erythrocyte sedimentation ra teOrdered By: Papi Hernandez on 05-16-2024 ESR (Bld) [Velocity] 13 mm/h 0-20 [facility] Ferritinon 05-16-2024 Ferritin [Mass/Vol] 31 ng/mL Normal 26-388 [facility] Comment on above: Performed By: #### L 3100.2300, L503.6550 ####[facility] [address] [place], [place], [id number] Ferritin measurementOrdered By: Papi Hernandez on 05-16-2024 Ferritin [Mass/Vol] 31 ng/mL 26-388 [facility] Hemoglobin (Reticulocytes) [ Entitic mass]Ordered By: Papi Hernandez on 05-16-2024 Reticulocyte Hemoglobin Equivalent 27.6 pg Low 30-35 [facility] Immature reticulocyte fracti onOrdered By: Papi Hernandez on 05-16-2024 Immature Reticulocyte Fraction 16.60 % High 3.00-15.90 [facility] Iron (Unsp spec) [Mass/Mass] Ordered By: Papi Hernandez on 05-16-2024 Iron [Mass/Vol] 29 ug/dL Low 65-175 [facility] Iron measurement (mass/mass) Ordered By: Papi Hernandez on 05-16-2024 Iron (Unsp spec) [Mass/Mass] 29 ug/dL Low 65-175 [facility] Iron saturation [Mass fracti on]Ordered By: Papi Hernandez on 05-16-2024 Iron Saturation 7.2 % Low 15.0-55.0 [facility] Iron+Iron Binding Capacityon 05-16-2024 Iron [Mass/Vol] 29 ug/dL Low 65-175 [facility] Comment on above: Performed By: #### L 101.9900, L100.9950, L503.6030, L501.6710, L100.0100, L500.4050, L900.0098 ####[facility] [address] [place], [place], [id number] IRON SATURATION 7.2 Low 15.0-55.0 [facility] Comment on above: Performed By: #### L 101.9900, L100.9950, L503.6030, L501.6710, L100.0100, L500.4050, L900.0098 ####[facility] [address] [place], [place], [id number] TIBC 401 ug/dL Normal 250-450 [facility] Comment on above: Performed By: #### L 101.9900, L100.9950, L503.6030, L501.6710, L100.0100, L500.4050, L900.0098 ####[facility] [address] [place], [place], [id number] NATERAon 05-16-2024 NATURA SEE SCANNED REPORT Normal [facility] Comment on above: Performed By: #### L 101.9900, L100.9950, L503.6030, L501.6710, L100.0100, L500.4050, L900.0098 ####[facility] [address] [place], [place], [id number] Oncology Visit Reporton 05-01 Oncology Visit Report Normal [facility] Retic Panelon 05-16-2024 IM RET FRACTION 16.60 High 3.00-15.90 [facility] Comment on above: Performed By: #### L 101.9900, L100.9950, L503.6030, L501.6710, L100.0100, L500.4050, L900.0098 ####[facility] [address] [place], [place], [id number] RET-HE 27.6 pg Low 30-35 [facility] Comment on above: Performed By: #### L 101.9900, L100.9950, L503.6030, L501.6710, L100.0100, L500.4050, L900.0098 ####[facility] [address] [place], [address] Retic Count 1.19 Normal 0.5-1.5 [facility] Comment on above: Performed By: #### L 101.9900, L100.9950, L503.6030, L501.6710, L100.0100, L500.4050, L900.0098 ####[facility] [address] [place], [address] Reticulocyte hemoglobin equi valent (RET-He) measurementOrdered By: Papi Hernandez on 05-16-2024 Hemoglobin (Reticulocytes) [Entitic mass] 27.6 pg Low 30-35 [facility] Reticulocytes Auto (Bld) [#/ Vol]Ordered By: Papi Hernandez on 05-16-2024 Reticulocyte Count 1.19 % 0.5-1.5 [facility] Reticulocytes/100 RBC (Bld) 1.19 % 0.5-1.5 [facility] Serum or plasma iron saturat ion measurement (mass fraction)Ordered By: Papi Hernandez on 05-16-2024 Iron saturation [Mass fraction] 7.2 % Low 15.0-55.0 [facility] TIBCOrdered By: Papi Hernandez on 05-16-2024 Total Iron Binding Capacity 401 ug/dL 250-450 [facility] Surgery Visit Reporton 05-10 Surgery Visit Report Normal [facility] Basic Metabolic Profile (BMP )on 05-07-2024 BUN/CRE 13.7 RATIO Normal 10-20 [facility] Comment on above: Performed By: #### L 100.0100, L500.2500 ####[facility] [address] [place], [address] CA,Total 9.5 mg/dL Normal 8.5-10.1 [facility] Comment on above: Performed By: #### L 100.0100, L500.2500 ####[facility] [address] [place], [address] Chloride [Moles/Vol] 103 mmol/L Normal 98-107 [facility] Comment on above: Performed By: #### L 100.0100, L500.2500 ####[facility] [address] [place], [address] CO2 [Moles/Vol] 25.0 mmol/L Normal 21.0-32.0 [facility] Comment on above: Performed By: #### L 100.0100, L500.2500 ####[facility] [address] [place], [address] Creatinine [Mass/Vol] 1.17 mg/dL Normal 0.70-1.[address] [facility] Comment on above: Result Comment: The validity of the calculated GFR GFRAA in patients over70 years has not been determined. Clinical correlation isessential. Performed By: #### L 100.0100, L500.2500 ####[facility] [address] [place], [address] EST GFR - AA 77 mL/min Normal >60 [facility] Comment on above: Result Comment: Afri can [place] GFR Calc Performed By: #### L 100.0100, L500.2500 ####[facility] [address] [place], [address] GAP 7 Normal 5-15 [facility] Comment on above: Performed By: #### L 100.0100, L500.2500 ####[facility] [address] [place], [address] GFR/1.73 sq M.predicted among non-blacks MDRD (S/P/Bld) [Vol rate/Area] 64 mL/min/{1.73_m2} Normal >60 [facility] Comment on above: Result Comment: Non- GFR Calc Performed By: #### L 100.0100, L500.2500 ####[facility] [address] [place], [address] Glucose [Mass/Vol] 112 mg/dL High 74-106 [facility] Comment on above: Result Comment: Fast ing Glucose result from 100 to 125 mg/dLsuggests IMPAIRED HOMEOSTASIS per A.D.A. criteria. Performed By: #### L 100.0100, L500.2500 ####[facility] [address] [place], [address] Potassium [Moles/Vol] 4.6 mmol/L Normal 3.5-5.[address] [facility] Comment on above: Performed By: #### L 100.0100, L500.2500 ####[facility] [address] [place], [address] Sodium [Moles/Vol] 135 mmol/L Low 136-145 [facility] Comment on above: Performed By: #### L 100.0100, L500.2500 ####[facility] [address] [place], [address] Urea nitrogen [Mass/Vol] 16 mg/dL Normal 7-18 [facility] Comment on above: Performed By: #### L 100.0100, L500.2500 ####[facility] [address] [place], [address] CBC W/Diff, Automatedon 10-0 7-2023 Absolute Lymph 1.28 X10 3/uL Normal 0.83-4.51 [facility] Comment on above: Performed By: #### L 100.0100, L500.2500 ####[facility] [address] [place], [address] Absolute Neut 3.6 X10 3/uL Normal 2.0-7.7 [facility] Comment on above: Performed By: #### L 100.0100, L500.2500 ####[facility] [address] [place], [address] Basophils/100 WBC (Bld) 0.4 % Normal 0-1 [facility] Comment on above: Performed By: #### L 100.0100, L500.2500 ####[facility] [address] [place], [address] Eosinophils/100 WBC (Bld) 1.8 % Normal 0-5 [facility] Comment on above: Performed By: #### L 100.0100, L500.2500 ####[facility] [address] [place], [address] Erythrocyte distribution width (RBC) [Ratio] 14.3 % Normal 11.6-14.6 [facility] Comment on above: Performed By: #### L 100.0100, L500.2500 ####[facility] [address] [place], [address] Hematocrit (Bld) [Volume fraction] 29.4 % Low 40-54 [facility] Comment on above: Performed By: #### L 100.0100, L500.2500 ####[facility] [address] [place], [address] Hemoglobin (Bld) [Mass/Vol] 8.8 g/dL Low 13.0-16.5 [facility] Comment on above: Performed By: #### L 100.0100, L500.2500 ####[facility] [address] [place], [address] IG% 0.500 Normal 0.0-0.9 [facility] Comment on above: Result Comment: IG% - Immature Granulocytes (promyelocytes, myelocytes andmetamyelocytes) > 1% indicates that a LEFT SHIFT is Present. Performed By: #### L 100.0100, L500.2500 ####[facility] [address] [place], [address] Lymphocytes/100 WBC (Bld) 23.0 % Normal 19-41 [facility] Comment on above: Performed By: #### L 100.0100, L500.2500 ####[facility] [address] [place], [address] MCH (RBC) [Entitic mass] 25.4 pg Low 27.0-32.0 [facility] Comment on above: Performed By: #### L 100.0100, L500.2500 ####[facility] [address] [place], [address] MCHC (RBC) [Mass/Vol] 29.9 g/dL Low 32-[address] [facility] Comment on above: Performed By: #### L 100.0100, L500.2500 ####[facility] [address] [place], [address] MCV (RBC) [Entitic vol] 85.0 fL Normal 80-94 [facility] Comment on above: Performed By: #### L 100.0100, L500.2500 ####[facility] [address] [place], [address] Monocytes/100 WBC (Bld) 10.4 % High 0-10 [facility] Comment on above: Performed By: #### L 100.0100, L500.2500 ####[facility] [address] [place], [address] Neutrophils/100 WBC (Bld) 63.9 % Normal 47-70 [facility] Comment on above: Performed By: #### L 100.0100, L500.2500 ####[facility] [address] [place], [address] Nucleated RBC (Bld) [#/Vol] 0 10*3/uL Normal 0-5 [facility] Comment on above: Performed By: #### L 100.0100, L500.2500 ####[facility] [address] [place], [address] Platelet mean volume (Bld) [Entitic vol] 9.8 fL Normal 6.2-12.0 [facility] Comment on above: Performed By: #### L 100.0100, L500.2500 ####[facility] [address] [place], [address] Platelets (Bld) [#/Vol] 416 10*3/uL Normal 150-450 [facility] Comment on above: Performed By: #### L 100.0100, L500.2500 ####[facility] [address] [place], [address] RBC (Bld) [#/Vol] 3.46 10*6/uL Low 4.6-6.2 [facility] Comment on above: Performed By: #### L 100.0100, L500.2500 ####[facility] [address] [place], [address] RDW SD 44.5 fl High 35.1-43.9 [facility] Comment on above: Performed By: #### L 100.0100, L500.2500 ####[facility] [address] [place], [address] WBC (Bld) [#/Vol] 5.6 10*3/uL Normal 4.4-11.0 [facility] Comment on above: Performed By: #### L 100.0100, L500.2500 ####[facility] [address] [place], [address] Basic Metabolic Profile (BMP )on 05-01-2024 BUN/CRE 16.2 RATIO Normal 10-20 [facility] Comment on above: Performed By: #### L 100.0100, L500.2500 ####[facility] [address] [place], [address] CA,Total 9.3 mg/dL Normal 8.5-10.1 [facility] Comment on above: Performed By: #### L 100.0100, L500.2500 ####[facility] [address] [place], [address] Chloride [Moles/Vol] 96 mmol/L Low 98-107 [facility] Comment on above: Performed By: #### L 100.0100, L500.2500 ####[facility] [address] [place], [address] CO2 [Moles/Vol] 24.0 mmol/L Normal 21.0-32.0 [facility] Comment on above: Performed By: #### L 100.0100, L500.2500 ####[facility] [address] [place], [address] Creatinine [Mass/Vol] 1.30 mg/dL Normal 0.70-1.[address] [facility] Comment on above: Result Comment: The validity of the calculated GFR GFRAA in patients over70 years has not been determined. Clinical correlation isessential. Performed By: #### L 100.0100, L500.2500 ####[facility] [address] [place], [address] ECRCL 42.37 ml/min Normal [facility] Comment on above: Performed By: #### L 100.0100, L500.2500 ####[facility] [address] [place], [address] EST GFR - AA 68 mL/min Normal >60 [facility] Comment on above: Result Comment: Afri can [place] GFR Calc Performed By: #### L 100.0100, L500.2500 ####[facility] [address] [place], [address] GAP 9 Normal 5-15 [facility] Comment on above: Performed By: #### L 100.0100, L500.2500 ####[facility] [address] [place], [address] GFR/1.73 sq M.predicted among non-blacks MDRD (S/P/Bld) [Vol rate/Area] 56 mL/min/{1.73_m2} Low >60 [facility] Comment on above: Result Comment: Non- GFR Calc Performed By: #### L 100.0100, L500.2500 ####[facility] [address] [place], [address] Glucose [Mass/Vol] 111 mg/dL High 74-106 [facility] Comment on above: Result Comment: Fast ing Glucose result from 100 to 125 mg/dLsuggests IMPAIRED HOMEOSTASIS per A.D.A. criteria. Performed By: #### L 100.0100, L500.2500 ####[facility] [address] [place], [address] Potassium [Moles/Vol] 4.2 mmol/L Normal 3.5-5.[address] [facility] Comment on above: Performed By: #### L 100.0100, L500.2500 ####[facility] [address] [place], [address] Sodium [Moles/Vol] 128 mmol/L Low 136-145 [facility] Comment on above: Performed By: #### L 100.0100, L500.2500 ####[facility] [address] [place], [address] Urea nitrogen [Mass/Vol] 21 mg/dL High 7-18 [facility] Comment on above: Performed By: #### L 100.0100, L500.2500 ####[facility] [address] [place], [address] CBC W/Diff, Automatedon 10-0 1-4 Absolute Lymph 1.58 X10 3/uL Normal 0.83-4.51 [facility] Comment on above: Performed By: #### L 100.0100, L500.2500 ####[facility] [address] [place], [address] Absolute Neut 6.7 X10 3/uL Normal 2.0-7.7 [facility] Comment on above: Performed By: #### L 100.0100, L500.2500 ####[facility] [address] [place], [address] Basophils/100 WBC (Bld) 0.3 % Normal 0-1 [facility] Comment on above: Performed By: #### L 100.0100, L500.2500 ####[facility] [address] [place], [address] Eosinophils/100 WBC (Bld) 3.0 % Normal 0-5 [facility] Comment on above: Performed By: #### L 100.0100, L500.2500 ####[facility] [address] [place], [address] Erythrocyte distribution width (RBC) [Ratio] 14.2 % Normal 11.6-14.6 [facility] Comment on above: Performed By: #### L 100.0100, L500.2500 ####[facility] [address] [place], [address] Hematocrit (Bld) [Volume fraction] 30.5 % Low 40-54 [facility] Comment on above: Performed By: #### L 100.0100, L500.2500 ####[facility] [address] [place], [address] Hemoglobin (Bld) [Mass/Vol] 9.5 g/dL Low 13.0-16.5 [facility] Comment on above: Performed By: #### L 100.0100, L500.2500 ####[facility] [address] [place], [address] IG% 0.800 Normal 0.0-0.9 [facility] Comment on above: Result Comment: IG% - Immature Granulocytes (promyelocytes, myelocytes andmetamyelocytes) > 1% indicates that a LEFT SHIFT is Present. Performed By: #### L 100.0100, L500.2500 ####[facility] [address] [place], [address] Lymphocytes/100 WBC (Bld) 16.4 % Low 19-41 [facility] Comment on above: Performed By: #### L 100.0100, L500.2500 ####[facility] [address] [place], [address] MCH (RBC) [Entitic mass] 25.7 pg Low 27.0-32.0 [facility] Comment on above: Performed By: #### L 100.0100, L500.2500 ####[facility] [address] [place], [address] MCHC (RBC) [Mass/Vol] 31.1 g/dL Low 32-[address] [facility] Comment on above: Performed By: #### L 100.0100, L500.2500 ####[facility] [address] [place], [address] MCV (RBC) [Entitic vol] 82.4 fL Normal 80-94 [facility] Comment on above: Performed By: #### L 100.0100, L500.2500 ####[facility] [address] [place], [address] Monocytes/100 WBC (Bld) 9.7 % Normal 0-10 [facility] Comment on above: Performed By: #### L 100.0100, L500.2500 ####[facility] [address] [place], [address] Neutrophils/100 WBC (Bld) 69.8 % Normal 47-70 [facility] Comment on above: Performed By: #### L 100.0100, L500.2500 ####[facility] [address] [place], [address] Nucleated RBC (Bld) [#/Vol] 0 10*3/uL Normal 0-5 [facility] Comment on above: Performed By: #### L 100.0100, L500.2500 ####[facility] [address] [place], [address] Platelet mean volume (Bld) [Entitic vol] 9.7 fL Normal 6.2-12.0 [facility] Comment on above: Performed By: #### L 100.0100, L500.2500 ####[facility] [address] [place], [address] Platelets (Bld) [#/Vol] 440 10*3/uL Normal 150-450 [facility] Comment on above: Performed By: #### L 100.0100, L500.2500 ####[facility] [address] [place], [address] RBC (Bld) [#/Vol] 3.70 10*6/uL Low 4.6-6.2 [facility] Comment on above: Performed By: #### L 100.0100, L500.2500 ####[facility] [address] [place], [address] RDW SD 42.2 fl Normal 35.1-43.9 [facility] Comment on above: Performed By: #### L 100.0100, L500.2500 ####[facility] [address] [place], [address] WBC (Bld) [#/Vol] 9.7 10*3/uL Normal 4.4-11.0 [facility] Comment on above: Performed By: #### L 100.0100, L500.2500 ####[facility] [address] [place], [address] Basic Metabolic Profile (BMP )on 04-30-2024 BUN/CRE 15.6 RATIO Normal 10-20 [facility] Comment on above: Performed By: #### L 100.0100, L500.2500 ####[facility] [address] [place], [address] CA,Total 9.0 mg/dL Normal 8.5-10.1 [facility] Comment on above: Performed By: #### L 100.0100, L500.2500 ####[facility] [address] [place], [address] Chloride [Moles/Vol] 101 mmol/L Normal 98-107 [facility] Comment on above: Performed By: #### L 100.0100, L500.2500 ####[facility] [address] [place], [address] CO2 [Moles/Vol] 24.0 mmol/L Normal 21.0-32.0 [facility] Comment on above: Performed By: #### L 100.0100, L500.2500 ####[facility] [address] [place], [address] Creatinine [Mass/Vol] 1.09 mg/dL Normal 0.70-1.[address] [facility] Comment on above: Result Comment: The validity of the calculated GFR GFRAA in patients over70 years has not been determined. Clinical correlation isessential. Performed By: #### L 100.0100, L500.2500 ####[facility] [address] [place], [address] ECRCL 50.54 ml/min Normal [facility] Comment on above: Performed By: #### L 100.0100, L500.2500 ####[facility] [address] [place], [address] EST GFR - AA 84 mL/min Normal >60 [facility] Comment on above: Result Comment: Afri can [place] GFR Calc Performed By: #### L 100.0100, L500.2500 ####[facility] [address] [place], [address] GAP 9 Normal 5-15 [facility] Comment on above: Performed By: #### L 100.0100, L500.2500 ####[facility] [address] [place], [address] GFR/1.73 sq M.predicted among non-blacks MDRD (S/P/Bld) [Vol rate/Area] 69 mL/min/{1.73_m2} Normal >60 [facility] Comment on above: Result Comment: Non- GFR Calc Performed By: #### L 100.0100, L500.2500 ####[facility] [address] [place], [address] Glucose [Mass/Vol] 104 mg/dL Normal 74-106 [facility] Comment on above: Result Comment: Fast ing Glucose result from 100 to 125 mg/dLsuggests IMPAIRED HOMEOSTASIS per A.D.A. criteria. Performed By: #### L 100.0100, L500.2500 ####[facility] [address] [place], [address] Potassium [Moles/Vol] 4.0 mmol/L Normal 3.5-5.[address] [facility] Comment on above: Performed By: #### L 100.0100, L500.2500 ####[facility] [address] [place], [address] Sodium [Moles/Vol] 134 mmol/L Low 136-145 [facility] Comment on above: Performed By: #### L 100.0100, L500.2500 ####[facility] [address] [place], [address] Urea nitrogen [Mass/Vol] 17 mg/dL Normal 7-18 [facility] Comment on above: Performed By: #### L 100.0100, L500.2500 ####[facility] [address] [place], [address] CBC W/Diff, Automatedon 09-3 0-4 Absolute Lymph 1.45 X10 3/uL Normal 0.83-4.51 [facility] Comment on above: Performed By: #### L 100.0100, L500.2500 ####[facility] [address] [place], [address] Absolute Neut 5.7 X10 3/uL Normal 2.0-7.7 [facility] Comment on above: Performed By: #### L 100.0100, L500.2500 ####[facility] [address] [place], [address] Basophils/100 WBC (Bld) 0.1 % Normal 0-1 [facility] Comment on above: Performed By: #### L 100.0100, L500.2500 ####[facility] [address] [place], [address] Eosinophils/100 WBC (Bld) 1.3 % Normal 0-5 [facility] Comment on above: Performed By: #### L 100.0100, L500.2500 ####[facility] [address] [place], [address] Erythrocyte distribution width (RBC) [Ratio] 14.0 % Normal 11.6-14.6 [facility] Comment on above: Performed By: #### L 100.0100, L500.2500 ####[facility] [address] [place], [address] Hematocrit (Bld) [Volume fraction] 28.7 % Low 40-54 [facility] Comment on above: Performed By: #### L 100.0100, L500.2500 ####[facility] [address] [place], [address] Hemoglobin (Bld) [Mass/Vol] 9.1 g/dL Low 13.0-16.5 [facility] Comment on above: Performed By: #### L 100.0100, L500.2500 ####[facility] [address] [place], [address] IG% 0.600 Normal 0.0-0.9 [facility] Comment on above: Result Comment: IG% - Immature Granulocytes (promyelocytes, myelocytes andmetamyelocytes) > 1% indicates that a LEFT SHIFT is Present. Performed By: #### L 100.0100, L500.2500 ####[facility] [address] [place], [address] Lymphocytes/100 WBC (Bld) 17.6 % Low 19-41 [facility] Comment on above: Performed By: #### L 100.0100, L500.2500 ####[facility] [address] [place], [address] MCH (RBC) [Entitic mass] 26.0 pg Low 27.0-32.0 [facility] Comment on above: Performed By: #### L 100.0100, L500.2500 ####[facility] [address] [place], [address] MCHC (RBC) [Mass/Vol] 31.7 g/dL Low 32-[address] [facility] Comment on above: Performed By: #### L 100.0100, L500.2500 ####[facility] [address] [place], [address] MCV (RBC) [Entitic vol] 82.0 fL Normal 80-94 [facility] Comment on above: Performed By: #### L 100.0100, L500.2500 ####[facility] [address] [place], [address] Monocytes/100 WBC (Bld) 11.8 % High 0-10 [facility] Comment on above: Performed By: #### L 100.0100, L500.2500 ####[facility] [address] [place], [address] Neutrophils/100 WBC (Bld) 68.6 % Normal 47-70 [facility] Comment on above: Performed By: #### L 100.0100, L500.2500 ####[facility] [address] [place], [address] Nucleated RBC (Bld) [#/Vol] 0 10*3/uL Normal 0-5 [facility] Comment on above: Performed By: #### L 100.0100, L500.2500 ####[facility] [address] [place], [address] Platelet mean volume (Bld) [Entitic vol] 9.7 fL Normal 6.2-12.0 [facility] Comment on above: Performed By: #### L 100.0100, L500.2500 ####[facility] [address] [place], [address] Platelets (Bld) [#/Vol] 360 10*3/uL Normal 150-450 [facility] Comment on above: Performed By: #### L 100.0100, L500.2500 ####[facility] [address] [place], [address] RBC (Bld) [#/Vol] 3.50 10*6/uL Low 4.6-6.2 [facility] Comment on above: Performed By: #### L 100.0100, L500.2500 ####[facility] [address] [place], [address] RDW SD 41.8 fl Normal 35.1-43.9 [facility] Comment on above: Performed By: #### L 100.0100, L500.2500 ####[facility] [address] [place], [address] WBC (Bld) [#/Vol] 8.2 10*3/uL Normal 4.4-11.0 [facility] Comment on above: Performed By: #### L 100.0100, L500.2500 ####[facility] [address] [place], [address] Basic Metabolic Profile (BMP )on 04-29-2024 BUN/CRE 13.0 RATIO Normal 10-20 [facility] Comment on above: Performed By: #### L 100.0100, L500.2500 ####[facility] [address] [place], [address] CA,Total 9.1 mg/dL Normal 8.5-10.1 [facility] Comment on above: Performed By: #### L 100.0100, L500.2500 ####[facility] [address] [place], [address] Chloride [Moles/Vol] 101 mmol/L Normal 98-107 [facility] Comment on above: Performed By: #### L 100.0100, L500.2500 ####[facility] [address] [place], [address] CO2 [Moles/Vol] 26.0 mmol/L Normal 21.0-32.0 [facility] Comment on above: Performed By: #### L 100.0100, L500.2500 ####[facility] [address] [place], [address] Creatinine [Mass/Vol] 1.08 mg/dL Normal 0.70-1.[address] [facility] Comment on above: Result Comment: The validity of the calculated GFR GFRAA in patients over70 years has not been determined. Clinical correlation isessential. Performed By: #### L 100.0100, L500.2500 ####[facility] [address] [place], [address] ECRCL 51.00 ml/min Normal [facility] Comment on above: Performed By: #### L 100.0100, L500.2500 ####[facility] [address] [place], [address] EST GFR - AA 85 mL/min Normal >60 [facility] Comment on above: Result Comment: Afri can [place] GFR Calc Performed By: #### L 100.0100, L500.2500 ####[facility] [address] [place], [address] GAP 6 Normal 5-15 [facility] Comment on above: Performed By: #### L 100.0100, L500.2500 ####[facility] [address] [place], [address] GFR/1.73 sq M.predicted among non-blacks MDRD (S/P/Bld) [Vol rate/Area] 70 mL/min/{1.73_m2} Normal >60 [facility] Comment on above: Result Comment: Non- GFR Calc Performed By: #### L 100.0100, L500.2500 ####[facility] [address] [place], [address] Glucose [Mass/Vol] 109 mg/dL High 74-106 [facility] Comment on above: Result Comment: Fast ing Glucose result from 100 to 125 mg/dLsuggests IMPAIRED HOMEOSTASIS per A.D.A. criteria. Performed By: #### L 100.0100, L500.2500 ####[facility] [address] [place], [address] Potassium [Moles/Vol] 4.1 mmol/L Normal 3.5-5.[address] [facility] Comment on above: Performed By: #### L 100.0100, L500.2500 ####[facility] [address] [place], [address] Sodium [Moles/Vol] 133 mmol/L Low 136-145 [facility] Comment on above: Performed By: #### L 100.0100, L500.2500 ####[facility] [address] [place], [address] Urea nitrogen [Mass/Vol] 14 mg/dL Normal 7-18 [facility] Comment on above: Performed By: #### L 100.0100, L500.2500 ####[facility] [address] [place], [address] CBC W/Diff, Automatedon 04-02 Absolute Lymph 1.60 X10 3/uL Normal 0.83-4.51 [facility] Comment on above: Performed By: #### L 100.0100, L500.2500 ####[facility] [address] [place], [address] Absolute Neut 6.7 X10 3/uL Normal 2.0-7.7 [facility] Comment on above: Performed By: #### L 100.0100, L500.2500 ####[facility] [address] [place], [address] Basophils/100 WBC (Bld) 0.1 % Normal 0-1 [facility] Comment on above: Performed By: #### L 100.0100, L500.2500 ####[facility] [address] [place], [address] Eosinophils/100 WBC (Bld) 0.3 % Normal 0-5 [facility] Comment on above: Performed By: #### L 100.0100, L500.2500 ####[facility] [address] [place], [address] Erythrocyte distribution width (RBC) [Ratio] 14.0 % Normal 11.6-14.6 [facility] Comment on above: Performed By: #### L 100.0100, L500.2500 ####[facility] [address] [place], [address] Hematocrit (Bld) [Volume fraction] 27.6 % Low 40-54 [facility] Comment on above: Performed By: #### L 100.0100, L500.2500 ####[facility] [address] [place], [address] Hemoglobin (Bld) [Mass/Vol] 8.6 g/dL Low 13.0-16.5 [facility] Comment on above: Performed By: #### L 100.0100, L500.2500 ####[facility] [address] [place], [address] IG% 0.500 Normal 0.0-0.9 [facility] Comment on above: Result Comment: IG% - Immature Granulocytes (promyelocytes, myelocytes andmetamyelocytes) > 1% indicates that a LEFT SHIFT is Present. Performed By: #### L 100.0100, L500.2500 ####[facility] [address] [place], [address] Lymphocytes/100 WBC (Bld) 17.1 % Low 19-41 [facility] Comment on above: Performed By: #### L 100.0100, L500.2500 ####[facility] [address] [place], [address] MCH (RBC) [Entitic mass] 26.2 pg Low 27.0-32.0 [facility] Comment on above: Performed By: #### L 100.0100, L500.2500 ####[facility] [address] [place], [address] MCHC (RBC) [Mass/Vol] 31.2 g/dL Low 32-[address] [facility] Comment on above: Performed By: #### L 100.0100, L500.2500 ####[facility] [address] [place], [address] MCV (RBC) [Entitic vol] 84.1 fL Normal 80-94 [facility] Comment on above: Performed By: #### L 100.0100, L500.2500 ####[facility] [address] [place], [address] Monocytes/100 WBC (Bld) 10.0 % Normal 0-10 [facility] Comment on above: Performed By: #### L 100.0100, L500.2500 ####[facility] [address] [place], [address] Neutrophils/100 WBC (Bld) 72.0 % High 47-70 [facility] Comment on above: Performed By: #### L 100.0100, L500.2500 ####[facility] [address] [place], [address] Nucleated RBC (Bld) [#/Vol] 0 10*3/uL Normal 0-5 [facility] Comment on above: Performed By: #### L 100.0100, L500.2500 ####[facility] [address] [place], [address] Platelet mean volume (Bld) [Entitic vol] 9.8 fL Normal 6.2-12.0 [facility] Comment on above: Performed By: #### L 100.0100, L500.2500 ####[facility] [address] [place], [address] Platelets (Bld) [#/Vol] 345 10*3/uL Normal 150-450 [facility] Comment on above: Performed By: #### L 100.0100, L500.2500 ####[facility] [address] [place], [address] RBC (Bld) [#/Vol] 3.28 10*6/uL Low 4.6-6.2 [facility] Comment on above: Performed By: #### L 100.0100, L500.2500 ####[facility] [address] [place], [address] RDW SD 42.7 fl Normal 35.1-43.9 [facility] Comment on above: Performed By: #### L 100.0100, L500.2500 ####[facility] [address] [place], [address] WBC (Bld) [#/Vol] 9.4 10*3/uL Normal 4.4-11.0 [facility] Comment on above: Performed By: #### L 100.0100, L500.2500 ####[facility] [facility] [address] [place], [address] Basic Metabolic Profile (BMP )on 04-28-2024 BUN/CRE 13.7 RATIO Normal 10-20 [facility] Comment on above: Performed By: #### L 100.0500, L500.2500 ####[facility] [address] [place], [address] CA,Total 8.2 mg/dL Low 8.5-10.1 [facility] Comment on above: Performed By: #### L 100.0500, L500.2500 ####[facility] [address] [place], [address] Chloride [Moles/Vol] 101 mmol/L Normal 98-107 [facility] Comment on above: Performed By: #### L 100.0500, L500.2500 ####[facility] [address] [place], [address] CO2 [Moles/Vol] 26.0 mmol/L Normal 21.0-32.0 [facility] Comment on above: Performed By: #### L 100.0500, L500.2500 ####[facility] [address] [place], [address] Creatinine [Mass/Vol] 1.31 mg/dL High 0.70-1.[address] [facility] Comment on above: Result Comment: The validity of the calculated GFR GFRAA in patients over70 years has not been determined. Clinical correlation isessential. Performed By: #### L 100.0500, L500.2500 ####[facility] [address] [place], [address] ECRCL 42.05 ml/min Normal [facility] Comment on above: Performed By: #### L 100.0500, L500.2500 ####[facility] [address] [place], [address] EST GFR - AA 68 mL/min Normal >60 [facility] Comment on above: Result Comment: Afri can [place] GFR Calc Performed By: #### L 100.0500, L500.2500 ####[facility] [address] [place], [address] GAP 4 Low 5-15 [facility] Comment on above: Performed By: #### L 100.0500, L500.2500 ####[facility] [address] [place], [address] GFR/1.73 sq M.predicted among non-blacks MDRD (S/P/Bld) [Vol rate/Area] 56 mL/min/{1.73_m2} Low >60 [facility] Comment on above: Result Comment: Non- GFR Calc Performed By: #### L 100.0500, L500.2500 ####[facility] [address] [place], [address] Glucose [Mass/Vol] 130 mg/dL High 74-106 [facility] Comment on above: Result Comment: Fast ing Glucose result greater than or equal to 126 mg/dLsuggests DIABETES MELLITUS per A.D.A. criteria. Performed By: #### L 100.0500, L500.2500 ####[facility] [address] [place], [address] Potassium [Moles/Vol] 4.4 mmol/L Normal 3.5-5.[address] [facility] Comment on above: Performed By: #### L 100.0500, L500.2500 ####[facility] [address] [place], [address] Sodium [Moles/Vol] 131 mmol/L Low 136-145 [facility] Comment on above: Performed By: #### L 100.0500, L500.2500 ####[facility] [address] [place], [address] Urea nitrogen [Mass/Vol] 18 mg/dL Normal 7-18 [facility] Comment on above: Performed By: #### L 100.0500, L500.2500 ####[facility] [address] [place], [address] CBC-Complete Blood Cnt No Di ffon 04-28-2024 Erythrocyte distribution width (RBC) [Ratio] 14.0 % Normal 11.6-14.6 [facility] Comment on above: Performed By: #### L 100.0500, L500.2500 ####[facility] [address] [place], [address] Hematocrit (Bld) [Volume fraction] 26.3 % Low 40-54 [facility] Comment on above: Performed By: #### L 100.0500, L500.2500 ####[facility] [address] [place], [address] Hemoglobin (Bld) [Mass/Vol] 8.1 g/dL Low 13.0-16.5 [facility] Comment on above: Performed By: #### L 100.0500, L500.2500 ####[facility] [address] [place], [address] MCH (RBC) [Entitic mass] 26.1 pg Low 27.0-32.0 [facility] Comment on above: Performed By: #### L 100.0500, L500.2500 ####[facility] [address] [place], [address] MCHC (RBC) [Mass/Vol] 30.8 g/dL Low 32-[address] [facility] Comment on above: Performed By: #### L 100.0500, L500.2500 ####[facility] [address] [place], [address] MCV (RBC) [Entitic vol] 84.8 fL Normal 80-94 [facility] Comment on above: Performed By: #### L 100.0500, L500.2500 ####[facility] [address] [place], [address] Platelet mean volume (Bld) [Entitic vol] 10.2 fL Normal 6.2-12.0 [facility] Comment on above: Performed By: #### L 100.0500, L500.2500 ####[facility] [address] [place], [address] Platelets (Bld) [#/Vol] 296 10*3/uL Normal 150-450 [facility] Comment on above: Performed By: #### L 100.0500, L500.2500 ####[facility] [address] [place], [address] RBC (Bld) [#/Vol] 3.10 10*6/uL Low 4.6-6.2 [facility] Comment on above: Performed By: #### L 100.0500, L500.2500 ####[facility] [address] [place], [address] RDW SD 43.3 fl Normal 35.1-43.9 [facility] Comment on above: Performed By: #### L 100.0500, L500.2500 ####[facility] [address] [place], [address] WBC (Bld) [#/Vol] 9.1 10*3/uL Normal 4.4-11.0 [facility] Comment on above: Performed By: #### L 100.0500, L500.2500 ####[facility] [address] [place], [address] Bedside Glucoseon 04-27-2024 FINGERSTICK GLU 113 mg/dL High 74-106 [facility] Comment on above: Result Comment: STELLA FLORES OF PATIENT CARE PER NURSING PROTOCOL Performed By: #### L 501.080 ####[facility] [address] [place], [address] CBC-Complete Blood Cnt No Marah riveraon 04-27-2024 Erythrocyte distribution width (RBC) [Ratio] 13.7 % Normal 11.6-14.6 [facility] Comment on above: Performed By: #### L 100.0500 ####[facility] [address] [place], [address] Hematocrit (Bld) [Volume fraction] 30.5 % Low 40-54 [facility] Comment on above: Performed By: #### L 100.0500 ####[facility] [address] [place], [address] Hemoglobin (Bld) [Mass/Vol] 9.4 g/dL Low 13.0-16.5 [facility] Comment on above: Performed By: #### L 100.0500 ####[facility] [address], [address] MCH (RBC) [Entitic mass] 26.0 pg Low 27.0-32.0 [facility] Comment on above: Performed By: #### L 100.0500 ####[facility] [address] [place], [address] MCHC (RBC) [Mass/Vol] 30.8 g/dL Low 32-[address] [facility] Comment on above: Performed By: #### L 100.0500 ####[facility] [address] [place], [address] MCV (RBC) [Entitic vol] 84.3 fL Normal 80-94 [facility] Comment on above: Performed By: #### L 100.0500 ####[facility] [address] [place], [address] Platelet mean volume (Bld) [Entitic vol] 9.7 fL Normal 6.2-12.0 [facility] Comment on above: Performed By: #### L 100.0500 ####[facility] [address] [place], [address] Platelets (Bld) [#/Vol] 346 10*3/uL Normal 150-450 [facility] Comment on above: Performed By: #### L 100.0500 ####[facility] [address] [place], [address] RBC (Bld) [#/Vol] 3.62 10*6/uL Low 4.6-6.2 [facility] Comment on above: Performed By: #### L 100.0500 ####[facility] [address] [place], [address] RDW SD 42.4 fl Normal 35.1-43.9 [facility] Comment on above: Performed By: #### L 100.0500 ####[facility] [address] [place], [address] WBC (Bld) [#/Vol] 7.1 10*3/uL Normal 4.4-11.0 [facility] Comment on above: Performed By: #### L 100.0500 ####[facility] [address] [place], [address] MLH-1 (add)on 04-27-2024 MLH-1 (add) Normal [facility] Comment on above: Performed By: #### P MLH1. ####[facility] [address] [place], [address] MR/POSTOP.ANEon 04-27-2024 MR/POSTOP.ANE Normal [facility] MR/GFSMCOEV5gr 04-27-2024 MR/POSTOPAN2 Normal [facility] Magnesiumon 04-27-2024 Magnesium [Mass/Vol] 1.9 mg/dL Normal 1.6-2.6 [facility] Comment on above: Performed By: #### L 501.5200 ####[facility] [address] [place], [address] Operative Reporton Operative Report Normal [facility] Surgery Specimen Level VIon 04-27-2024 Surgery Specimen Level Normal [facility] Comment on above: Performed By: #### P SUVI ####[facility] [address] [place], [address] Cardiology Visit Reporton Cardiology Visit Report Normal [facility] Surgery Visit Reporton 04-20 Surgery Visit Report Normal [facility] CBC W/Diff, Automatedon 04-01 Absolute Lymph 1.42 X10 3/uL Normal 0.83-4.51 [facility] Comment on above: Performed By: #### L 100.0100 ####[facility] [address] [place], [address] Absolute Neut 3.1 X10 3/uL Normal 2.0-7.7 [facility] Comment on above: Performed By: #### L 100.0100 ####[facility] [address] [place], [address] Basophils/100 WBC (Bld) 0.5 % Normal 0-1 [facility] Comment on above: Performed By: #### L 100.0100 ####[facility] [address] [place], [address] Eosinophils/100 WBC (Bld) 5.9 % High 0-5 [facility] Comment on above: Performed By: #### L 100.0100 ####[facility] [address] [place], [address] Erythrocyte distribution width (RBC) [Ratio] 13.4 % Normal 11.6-14.6 [facility] Comment on above: Performed By: #### L 100.0100 ####[facility] [address] [place], [address] Hematocrit (Bld) [Volume fraction] 30.5 % Low 40-54 [facility] Comment on above: Performed By: #### L 100.0100 ####[facility] [address] [place], [address] Hemoglobin (Bld) [Mass/Vol] 9.3 g/dL Low 13.0-16.5 [facility] Comment on above: Performed By: #### L 100.0100 ####[facility] [address] [place], [address] IG% 0.200 Normal 0.0-0.9 [facility] Comment on above: Result Comment: IG% - Immature Granulocytes (promyelocytes, myelocytes andmetamyelocytes) > 1% indicates that a LEFT SHIFT is Present. Performed By: #### L 100.0100 ####[facility] [address] [place], [address] Lymphocytes/100 WBC (Bld) 25.6 % Normal 19-41 [facility] Comment on above: Performed By: #### L 100.0100 ####[facility] [address] [place], [address] MCH (RBC) [Entitic mass] 26.2 pg Low 27.0-32.0 [facility] Comment on above: Performed By: #### L 100.0100 ####[facility] [address] [place], [address] MCHC (RBC) [Mass/Vol] 30.5 g/dL Low 32-[address] [facility] Comment on above: Performed By: #### L 100.0100 ####[facility] [address] [place], [address] MCV (RBC) [Entitic vol] 85.9 fL Normal 80-94 [facility] Comment on above: Performed By: #### L 100.0100 ####[facility] [address] [place], [address] Monocytes/100 WBC (Bld) 12.1 % High 0-10 [facility] Comment on above: Performed By: #### L 100.0100 ####[facility] [address] [place], [address] Neutrophils/100 WBC (Bld) 55.7 % Normal 47-70 [facility] Comment on above: Performed By: #### L 100.0100 ####[facility] [address] [place], [address] Nucleated RBC (Bld) [#/Vol] 0 10*3/uL Normal 0-5 [facility] Comment on above: Performed By: #### L 100.0100 ####[facility] [address] [place], [address] Platelet mean volume (Bld) [Entitic vol] 9.3 fL Normal 6.2-12.0 [facility] Comment on above: Performed By: #### L 100.0100 ####[facility] [address] [place], [address] Platelets (Bld) [#/Vol] 303 10*3/uL Normal 150-450 [facility] Comment on above: Performed By: #### L 100.0100 ####[facility] [address] [place], [address] RBC (Bld) [#/Vol] 3.55 10*6/uL Low 4.6-6.2 [facility] Comment on above: Performed By: #### L 100.0100 ####[facility] [address] [place], [address] RDW SD 42.2 fl Normal 35.1-43.9 [facility] Comment on above: Performed By: #### L 100.0100 ####[facility] [address] [place], [address] WBC (Bld) [#/Vol] 5.6 10*3/uL Normal 4.4-11.0 [facility] Comment on above: Performed By: #### L 100.0100 ####[facility] [address], [address] Basic Metabolic Profile (BMP )on 04-14-2024 BUN/CRE 13.0 RATIO Normal 10-20 [facility] Comment on above: Performed By: #### L 100.0100, L500.2500 ####[facility] [address] [place], [address] CA,Total 8.1 mg/dL Low 8.5-10.1 [facility] Comment on above: Performed By: #### L 100.0100, L500.2500 ####[facility] [address] [place], [address] Chloride [Moles/Vol] 108 mmol/L High 98-107 [facility] Comment on above: Performed By: #### L 100.0100, L500.2500 ####[facility] [address] [place], [address] CO2 [Moles/Vol] 23.0 mmol/L Normal 21.0-32.0 [facility] Comment on above: Performed By: #### L 100.0100, L500.2500 ####[facility] [address] [place], [address] Creatinine [Mass/Vol] 1.23 mg/dL Normal 0.70-1.[address] [facility] Comment on above: Result Comment: The validity of the calculated GFR GFRAA in patients over70 years has not been determined. Clinical correlation isessential. Performed By: #### L 100.0100, L500.2500 ####[facility] [address] [place], [address] ECRCL 44.78 ml/min Normal [facility] Comment on above: Performed By: #### L 100.0100, L500.2500 ####[facility] [address] [place], [address] EST GFR - AA 73 mL/min Normal >60 [facility] Comment on above: Result Comment: Afri can [place] GFR Calc Performed By: #### L 100.0100, L500.2500 ####[facility] [address] [place], [address] GAP 7 Normal 5-15 [facility] Comment on above: Performed By: #### L 100.0100, L500.2500 ####[facility] [address] [place], [address] GFR/1.73 sq M.predicted among non-blacks MDRD (S/P/Bld) [Vol rate/Area] 60 mL/min/{1.73_m2} Normal >60 [facility] Comment on above: Result Comment: Non- GFR Calc Performed By: #### L 100.0100, L500.2500 ####[facility] [address] [place], [address] Glucose [Mass/Vol] 105 mg/dL Normal 74-106 [facility] Comment on above: Result Comment: Fast ing Glucose result from 100 to 125 mg/dLsuggests IMPAIRED HOMEOSTASIS per A.D.A. criteria. Performed By: #### L 100.0100, L500.2500 ####[facility] [address] [place], [address] Potassium [Moles/Vol] 3.4 mmol/L Low 3.5-5.[address] [facility] Comment on above: Performed By: #### L 100.0100, L500.2500 ####[facility] [address] [place], [address] Sodium [Moles/Vol] 138 mmol/L Normal 136-145 [facility] Comment on above: Performed By: #### L 100.0100, L500.2500 ####[facility] [address] [place], [address] Urea nitrogen [Mass/Vol] 16 mg/dL Normal 7-18 [facility] Comment on above: Performed By: #### L 100.0100, L500.2500 ####[facility] [address] [place], [address] CBC W/Diff, Automatedon 04-01 Absolute Lymph 1.52 X10 3/uL Normal 0.83-4.51 [facility] Comment on above: Performed By: #### L 100.0100, L500.2500 ####[facility] [address] [place], [address] Absolute Neut 4.8 X10 3/uL Normal 2.0-7.7 [facility] Comment on above: Performed By: #### L 100.0100, L500.2500 ####[facility] [address] [place], [address] Basophils/100 WBC (Bld) 0.1 % Normal 0-1 [facility] Comment on above: Performed By: #### L 100.0100, L500.2500 ####[facility] [address] [place], [address] Eosinophils/100 WBC (Bld) 3.4 % Normal 0-5 [facility] Comment on above: Performed By: #### L 100.0100, L500.2500 ####[facility] [address] [place], [address] Erythrocyte distribution width (RBC) [Ratio] 13.4 % Normal 11.6-14.6 [facility] Comment on above: Performed By: #### L 100.0100, L500.2500 ####[facility] [address] [place], [address] Hematocrit (Bld) [Volume fraction] 30.9 % Low 40-54 [facility] Comment on above: Performed By: #### L 100.0100, L500.2500 ####[facility] [address] [place], [address] Hemoglobin (Bld) [Mass/Vol] 9.5 g/dL Low 13.0-16.5 [facility] Comment on above: Performed By: #### L 100.0100, L500.2500 ####[facility] [address] [place], [address] IG% 0.300 Normal 0.0-0.9 [facility] Comment on above: Result Comment: IG% - Immature Granulocytes (promyelocytes, myelocytes andmetamyelocytes) > 1% indicates that a LEFT SHIFT is Present. Performed By: #### L 100.0100, L500.2500 ####[facility] [address] [place], [address] Lymphocytes/100 WBC (Bld) 20.1 % Normal 19-41 [facility] Comment on above: Performed By: #### L 100.0100, L500.2500 ####[facility] [address] [place], [address] MCH (RBC) [Entitic mass] 26.2 pg Low 27.0-32.0 [facility] Comment on above: Performed By: #### L 100.0100, L500.2500 ####[facility] [address] [place], [address] MCHC (RBC) [Mass/Vol] 30.7 g/dL Low 32-[address] [facility] Comment on above: Performed By: #### L 100.0100, L500.2500 ####[facility] [address] [place], [address] MCV (RBC) [Entitic vol] 85.4 fL Normal 80-94 [facility] Comment on above: Performed By: #### L 100.0100, L500.2500 ####[facility] [address] [place], [address] Monocytes/100 WBC (Bld) 12.2 % High 0-10 [facility] Comment on above: Performed By: #### L 100.0100, L500.2500 ####[facility] [address] [place], [address] Neutrophils/100 WBC (Bld) 63.9 % Normal 47-70 [facility] Comment on above: Performed By: #### L 100.0100, L500.2500 ####[facility] [address] [place], [address] Nucleated RBC (Bld) [#/Vol] 0 10*3/uL Normal 0-5 [facility] Comment on above: Performed By: #### L 100.0100, L500.2500 ####[facility] [address] [place], [address] Platelet mean volume (Bld) [Entitic vol] 9.4 fL Normal 6.2-12.0 [facility] Comment on above: Performed By: #### L 100.0100, L500.2500 ####[facility] [address] [place], [address] Platelets (Bld) [#/Vol] 321 10*3/uL Normal 150-450 [facility] Comment on above: Performed By: #### L 100.0100, L500.2500 ####[facility] [address] [place], [address] RBC (Bld) [#/Vol] 3.62 10*6/uL Low 4.6-6.2 [facility] Comment on above: Performed By: #### L 100.0100, L500.2500 ####[facility] [address] [place], [address] RDW SD 42.0 fl Normal 35.1-43.9 [facility] Comment on above: Performed By: #### L 100.0100, L500.2500 ####[facility] [address] [place], [address] WBC (Bld) [#/Vol] 7.6 10*3/uL Normal 4.4-11.0 [facility] Comment on above: Performed By: #### L 100.0100, L500.2500 ####[facility] [address] [place], [address] MR/PN.GIon 04-14-2024 MR/PN.GI Normal [facility] Basic Metabolic Profile (BMP )on 04-13-2024 BUN/CRE 12.6 RATIO Normal 10-20 [facility] Comment on above: Performed By: #### L 100.0100, L500.2500 ####[facility] [address] [place], [address] CA,Total 8.9 mg/dL Normal 8.5-10.1 [facility] Comment on above: Performed By: #### L 100.0100, L500.2500 ####[facility] [address] [place], [address] Chloride [Moles/Vol] 106 mmol/L Normal 98-107 [facility] Comment on above: Performed By: #### L 100.0100, L500.2500 ####[facility] [address], [address] CO2 [Moles/Vol] 24.0 mmol/L Normal 21.0-32.0 [facility] Comment on above: Performed By: #### L 100.0100, L500.2500 ####[facility] [address] [place], [address] Creatinine [Mass/Vol] 1.19 mg/dL Normal 0.70-1.[address] [facility] Comment on above: Result Comment: The validity of the calculated GFR GFRAA in patients over70 years has not been determined. Clinical correlation isessential. Performed By: #### L 100.0100, L500.2500 ####[facility] [address] [place], [address] ECRCL 46.29 ml/min Normal [facility] Comment on above: Performed By: #### L 100.0100, L500.2500 ####[facility] [address] [place], [address] EST GFR - AA 76 mL/min Normal >60 [facility] Comment on above: Result Comment: Afri can [place] GFR Calc Performed By: #### L 100.0100, L500.2500 ####[facility] [address] [place], [address] GAP 8 Normal 5-15 [facility] Comment on above: Performed By: #### L 100.0100, L500.2500 ####[facility] [address] [place], [address] GFR/1.73 sq M.predicted among non-blacks MDRD (S/P/Bld) [Vol rate/Area] 63 mL/min/{1.73_m2} Normal >60 [facility] Comment on above: Result Comment: Non- GFR Calc Performed By: #### L 100.0100, L500.2500 ####[facility] [address] [place], [address] Glucose [Mass/Vol] 99 mg/dL Normal 74-106 [facility] Comment on above: Performed By: #### L 100.0100, L500.2500 ####[facility] [address] [place], [address] Potassium [Moles/Vol] 3.6 mmol/L Normal 3.5-5.[address] [facility] Comment on above: Performed By: #### L 100.0100, L500.2500 ####[facility] [address] [place], [address] Sodium [Moles/Vol] 138 mmol/L Normal 136-145 [facility] Comment on above: Performed By: #### L 100.0100, L500.2500 ####[facility] [address] [place], [address] Urea nitrogen [Mass/Vol] 15 mg/dL Normal 7-18 [facility] Comment on above: Performed By: #### L 100.0100, L500.2500 ####[facility] [address] [place], [address] CBC W/Diff, Automatedon 04-01-2023 Absolute Lymph 1.30 X10 3/uL Normal 0.83-4.51 [facility] Company Comment on above: Performed By: #### L 100.0100, L500.2500 ####[facility] [address] [place], [address] Absolute Neut 3.5 X10 3/uL Normal 2.0-7.7 [facility] Comment on above: Performed By: #### L 100.0100, L500.2500 ####[facility] [address] [place], [address] Basophils/100 WBC (Bld) 0.2 % Normal 0-1 [facility] Comment on above: Performed By: #### L 100.0100, L500.2500 ####[facility] [address] [place], [address] Eosinophils/100 WBC (Bld) 2.8 % Normal 0-5 [facility] Comment on above: Performed By: #### L 100.0100, L500.2500 ####[facility] [address] [place], [address] Erythrocyte distribution width (RBC) [Ratio] 13.4 % Normal 11.6-14.6 [facility] Comment on above: Performed By: #### L 100.0100, L500.2500 ####[facility] [address] [place], [address] Hematocrit (Bld) [Volume fraction] 34.1 % Low 40-54 [facility] Comment on above: Performed By: #### L 100.0100, L500.2500 ####[facility] [address] [place], [address] Hemoglobin (Bld) [Mass/Vol] 10.8 g/dL Low 13.0-16.5 [facility] Comment on above: Performed By: #### L 100.0100, L500.2500 ####[facility] [address] [place], [address] IG% 0.300 Normal 0.0-0.9 [facility] Comment on above: Result Comment: IG% - Immature Granulocytes (promyelocytes, myelocytes andmetamyelocytes) > 1% indicates that a LEFT SHIFT is Present. Performed By: #### L 100.0100, L500.2500 ####[facility] [address] [place], [address] Lymphocytes/100 WBC (Bld) 22.6 % Normal 19-41 [facility] Comment on above: Performed By: #### L 100.0100, L500.2500 ####[facility] [address] [place], [address] MCH (RBC) [Entitic mass] 26.7 pg Low 27.0-32.0 [facility] Comment on above: Performed By: #### L 100.0100, L500.2500 ####[facility] [address] [place], [address] MCHC (RBC) [Mass/Vol] 31.7 g/dL Low 32-[address] [facility] Comment on above: Performed By: #### L 100.0100, L500.2500 ####[facility] [address] [place], [address] MCV (RBC) [Entitic vol] 84.4 fL Normal 80-94 [facility] Comment on above: Performed By: #### L 100.0100, L500.2500 ####[facility] [address] [place], [address] Monocytes/100 WBC (Bld) 12.5 % High 0-10 [facility] Comment on above: Performed By: #### L 100.0100, L500.2500 ####[facility] [address] [place], [address] Neutrophils/100 WBC (Bld) 61.6 % Normal 47-70 [facility] Comment on above: Performed By: #### L 100.0100, L500.2500 ####[facility] [address] [place], [address] Nucleated RBC (Bld) [#/Vol] 0 10*3/uL Normal 0-5 [facility] Comment on above: Performed By: #### L 100.0100, L500.2500 ####[facility] [address] [place], [address] Platelet mean volume (Bld) [Entitic vol] 9.4 fL Normal 6.2-12.0 [facility] Comment on above: Performed By: #### L 100.0100, L500.2500 ####[facility] [address] [place], [address] Platelets (Bld) [#/Vol] 343 10*3/uL Normal 150-450 [facility] Comment on above: Performed By: #### L 100.0100, L500.2500 ####[facility] [address] [place], [address] RBC (Bld) [#/Vol] 4.04 10*6/uL Low 4.6-6.2 [facility] Comment on above: Performed By: #### L 100.0100, L500.2500 ####[facility] [address] [place], [address] RDW SD 41.8 fl Normal 35.1-43.9 [facility] Comment on above: Performed By: #### L 100.0100, L500.2500 ####[facility] [address] [place], [address] WBC (Bld) [#/Vol] 5.8 10*3/uL Normal 4.4-11.0 [facility] Comment on above: Performed By: #### L 100.0100, L500.2500 ####[facility] [address] [place], [address] Carcinoembryonic Antigenon 0 04-13-2024 CEA 2.7 ng/mL Normal 0.0-4.7 [facility] Comment on above: Result Comment: Nons mokers <3.9 Smokers <5.6[employer] Electrochemiluminescence Immunoassay(ECLIA)Values obtained with different assay methods or kitscannot be used interchangeably. Results cannot beinterpreted as absolute evidence of the presence orabsence of malignant disease.Performed at: [address] [id number] Director: Jian Paredes PhD, Phone: [phone] Performed By: #### L 9123.7532 ####[facility] [address] [place], [address] Colonoscopy Reporton 024 Colonoscopy Report Normal [facility] HER-2-DIONNA (initial)on 2023 HER-2-DIONNA (initial) Normal [facility] Comment on above: Performed By: #### P HER2 ####[facility] [address] [place], [address] MR/POSTOP.ANEon 04-13-2024 MR/POSTOP.ANE Normal [facility] MR/RPEWDQMD5td 04-13-2024 MR/POSTOPAN2 Normal [facility] Partial Thromboplast Timeon 04-13-2024 aPTT Coag (Bld) [Time] 29.4 s Normal 24.1-36.2 [facility] Comment on above: Performed By: #### L 300.3900, L300.4310 ####[facility] [address] [place], [address] Prothrombin Time w/INRon INR Coag (PPP) [Relative time] 1.1 {INR} Normal [facility] Comment on above: Performed By: #### L 300.3900, L300.4310 ####[facility] [address] [place], [address] PT Coag (PPP) [Time] 14.6 s Normal 11.7-14.9 [facility] Comment on above: Performed By: #### L 300.3900, L300.4310 ####[facility] [address] [place], [address] Special Stain Group Ion 04-01 Special Stain Group I Normal [facility] Comment on above: Performed By: #### P SSI ####[facility] [address] [place], [address] CBC W/Diff, Automatedon 04-01 Absolute Lymph 1.44 X10 3/uL Normal 0.83-4.51 [facility] Comment on above: Performed By: #### L 501.2300, L100.0100, L500.4050, L501.9520, L501.5200 ####[facility] [address] [place], [address] Absolute Neut 3.5 X10 3/uL Normal 2.0-7.7 [facility] Comment on above: Performed By: #### L 501.2300, L100.0100, L500.4050, L501.9520, L501.5200 ####[facility] [address] [place], [address] Basophils/100 WBC (Bld) 0.4 % Normal 0-1 [facility] Comment on above: Performed By: #### L 501.2300, L100.0100, L500.4050, L501.9520, L501.5200 ####[facility] [address] [place], [address] Eosinophils/100 WBC (Bld) 1.8 % Normal 0-5 [facility] Comment on above: Performed By: #### L 501.2300, L100.0100, L500.4050, L501.9520, L501.5200 ####[facility] [address] [place], [address] Erythrocyte distribution width (RBC) [Ratio] 13.3 % Normal 11.6-14.6 [facility] Comment on above: Performed By: #### L 501.2300, L100.0100, L500.4050, L501.9520, L501.5200 ####[facility] [address] [place], [address] Hematocrit (Bld) [Volume fraction] 32.7 % Low 40-54 [facility] Comment on above: Performed By: #### L 501.2300, L100.0100, L500.4050, L501.9520, L501.5200 ####[facility] [address] [place], [address] Hemoglobin (Bld) [Mass/Vol] 10.5 g/dL Low 13.0-16.5 [facility] Comment on above: Performed By: #### L 501.2300, L100.0100, L500.4050, L501.9520, L501.5200 ####[facility] [address] [place], [address] IG% 0.500 Normal 0.0-0.9 [facility] Comment on above: Result Comment: IG% - Immature Granulocytes (promyelocytes, myelocytes andmetamyelocytes) > 1% indicates that a LEFT SHIFT is Present. Performed By: #### L 501.2300, L100.0100, L500.4050, L501.9520, L501.5200 ####[facility] [address] [place], [address] Lymphocytes/100 WBC (Bld) 25.3 % Normal 19-41 [facility] Comment on above: Performed By: #### L 501.2300, L100.0100, L500.4050, L501.9520, L501.5200 ####[facility] [address] [place], [address] MCH (RBC) [Entitic mass] 27.5 pg Normal 27.0-32.0 [facility] Comment on above: Performed By: #### L 501.2300, L100.0100, L500.4050, L501.9520, L501.5200 ####[facility] [address] [place], [address] MCHC (RBC) [Mass/Vol] 32.1 g/dL Normal 32-[address] [facility] Comment on above: Performed By: #### L 501.2300, L100.0100, L500.4050, L501.9520, L501.5200 ####[facility] [address] [place], [address] MCV (RBC) [Entitic vol] 85.6 fL Normal 80-94 [facility] Comment on above: Performed By: #### L 501.2300, L100.0100, L500.4050, L501.9520, L501.5200 ####[facility] [address] [place], [address] Monocytes/100 WBC (Bld) 10.5 % High 0-10 [facility] Comment on above: Performed By: #### L 501.2300, L100.0100, L500.4050, L501.9520, L501.5200 ####[facility] [address] [place], [address] Neutrophils/100 WBC (Bld) 61.5 % Normal 47-70 [facility] Comment on above: Performed By: #### L 501.2300, L100.0100, L500.4050, L501.9520, L501.5200 ####[facility] [address] [place], [address] Nucleated RBC (Bld) [#/Vol] 0 10*3/uL Normal 0-5 [facility] Comment on above: Performed By: #### L 501.2300, L100.0100, L500.4050, L501.9520, L501.5200 ####[facility] [address] [place], [address] Platelet mean volume (Bld) [Entitic vol] 9.2 fL Normal 6.2-12.0 [facility] Comment on above: Performed By: #### L 501.2300, L100.0100, L500.4050, L501.9520, L501.5200 ####[facility] [address] [place], [address] Platelets (Bld) [#/Vol] 314 10*3/uL Normal 150-450 [facility] Comment on above: Performed By: #### L 501.2300, L100.0100, L500.4050, L501.9520, L501.5200 ####[facility] [address] [place], [address] RBC (Bld) [#/Vol] 3.82 10*6/uL Low 4.6-6.2 [facility] Comment on above: Performed By: #### L 501.2300, L100.0100, L500.4050, L501.9520, L501.5200 ####[facility] [address] [place], [address] RDW SD 41.6 fl Normal 35.1-43.9 [facility] Comment on above: Performed By: #### L 501.2300, L100.0100, L500.4050, L501.9520, L501.5200 ####[facility] [address] [place], [address] WBC (Bld) [#/Vol] 5.7 10*3/uL Normal 4.4-11.0 [facility] Comment on above: Performed By: #### L 501.2300, L100.0100, L500.4050, L501.9520, L501.5200 ####[facility] [address] [place], [address] Comprehensive Metabolic [facility] 04-12-2024 Albumin [Mass/Vol] 3.8 g/dL Normal 3.2-5.0 [facility] Comment on above: Performed By: #### L 501.2300, L100.0100, L500.4050, L501.9520, L501.5200 ####[facility] [address] [place], [address] Albumin/Globulin [Mass ratio] 1.1 {ratio} Normal 0.9-2.4 [facility] Comment on above: Performed By: #### L 501.2300, L100.0100, L500.4050, L501.9520, L501.5200 ####[facility] [address] [place], [address] ALK P 88 U/L Normal 45-117 [facility] Comment on above: Performed By: #### L 501.2300, L100.0100, L500.4050, L501.9520, L501.5200 ####[facility] [address] [place], [address] ALT [Catalytic activity/Vol] 22 U/L Normal 16-61 [facility] Comment on above: Performed By: #### L 501.2300, L100.0100, L500.4050, L501.9520, L501.5200 ####[facility] [address] [place], [address] AST [Catalytic activity/Vol] 20 U/L Normal 15-37 [facility] Comment on above: Performed By: #### L 501.2300, L100.0100, L500.4050, L501.9520, L501.5200 ####[facility] [address] [place], [address] Bilirubin [Mass/Vol] 0.90 mg/dL Normal 0.20-1.00 [facility] Comment on above: Result Comment: For patients on eltrombopag therapy, use of Dimension [place] TBIL is not recommended. Performed By: #### L 501.2300, L100.0100, L500.4050, L501.9520, L501.5200 ####[facility] [address] [place], [address] BUN/CRE 13.7 RATIO Normal 10-20 [facility] Comment on above: Performed By: #### L 501.2300, L100.0100, L500.4050, L501.9520, L501.5200 ####[facility] [address] [place], [address] CA,Total 8.9 mg/dL Normal 8.5-10.1 [facility] Comment on above: Performed By: #### L 501.2300, L100.0100, L500.4050, L501.9520, L501.5200 ####[facility] [address] [place], [address] Chloride [Moles/Vol] 104 mmol/L Normal 98-107 [facility] Comment on above: Performed By: #### L 501.2300, L100.0100, L500.4050, L501.9520, L501.5200 ####[facility] [address] [place], [address] CO2 [Moles/Vol] 29.0 mmol/L Normal 21.0-32.0 [facility] Comment on above: Performed By: #### L 501.2300, L100.0100, L500.4050, L501.9520, L501.5200 ####[facility] [address] [place], [address] Creatinine [Mass/Vol] 1.17 mg/dL Normal 0.70-1.[address] [facility] Comment on above: Result Comment: The validity of the calculated GFR GFRAA in patients over70 years has not been determined. Clinical correlation isessential. Performed By: #### L 501.2300, L100.0100, L500.4050, L501.9520, L501.5200 ####[facility] [address] [place], [address] ECRCL 48.72 ml/min Normal [facility] Comment on above: Performed By: #### L 501.2300, L100.0100, L500.4050, L501.9520, L501.5200 ####[facility] [address] [place], [address] EST GFR - AA 77 mL/min Normal >60 [facility] Comment on above: Result Comment: Afri can [place] GFR Calc Performed By: #### L 501.2300, L100.0100, L500.4050, L501.9520, L501.5200 ####[facility] [address] [place], [address] GAP 4 Low 5-15 [facility] Comment on above: Performed By: #### L 501.2300, L100.0100, L500.4050, L501.9520, L501.5200 ####[facility] [address] [place], [address] GFR/1.73 sq M.predicted among non-blacks MDRD (S/P/Bld) [Vol rate/Area] 64 mL/min/{1.73_m2} Normal >60 [facility] Comment on above: Result Comment: Non- GFR Calc Performed By: #### L 501.2300, L100.0100, L500.4050, L501.9520, L501.5200 ####[facility] [address] [place], [address] Globulin (S) [Mass/Vol] 3.5 g/dL Normal 2.2-4.2 [facility] Comment on above: Performed By: #### L 501.2300, L100.0100, L500.4050, L501.9520, L501.5200 ####[facility] [address] [place], [address] Glucose [Mass/Vol] 98 mg/dL Normal 74-106 [facility] Comment on above: Performed By: #### L 501.2300, L100.0100, L500.4050, L501.9520, L501.5200 ####[facility] [address] [place], [address] Potassium [Moles/Vol] 3.5 mmol/L Normal 3.5-5.[address] [facility] Comment on above: Performed By: #### L 501.2300, L100.0100, L500.4050, L501.9520, L501.5200 ####[facility] [address] [place], [address] Sodium [Moles/Vol] 137 mmol/L Normal 136-145 [facility] Comment on above: Performed By: #### L 501.2300, L100.0100, L500.4050, L501.9520, L501.5200 ####[facility] [address] [place], [address] T PROT 7.3 g/dL Normal 6.4-8.2 [facility] Comment on above: Performed By: #### L 501.2300, L100.0100, L500.4050, L501.9520, L501.5200 ####[facility] [address] [place], [address] Urea nitrogen [Mass/Vol] 16 mg/dL Normal 7-18 [facility] Comment on above: Performed By: #### L 501.2300, L100.0100, L500.4050, L501.9520, L501.5200 ####[facility] [address] [place], [address] Consultation - Surgicalon Consultation - Surgical Normal [facility] Ferritinon 04-12-2024 Ferritin [Mass/Vol] 17 ng/mL Low 26-388 [facility] Comment on above: Performed By: #### L 503.6059, L503.6550 ####[facility] [address] [place], [address] Iron+Iron Binding Capacityon 04-12-2024 Iron [Mass/Vol] 16 ug/dL Low 65-175 [facility] Comment on above: Performed By: #### L 503.6030, L503.6550 ####[facility] [address] [place], [address] IRON SATURATION 4.1 Low 15.0-55.0 [facility] Comment on above: Performed By: #### L 503.6030, L503.6550 ####[facility] [address] [place], [address] TIBC 387 ug/dL Normal 250-450 [facility] Comment on above: Performed By: #### L 503.6030, L503.6550 ####[facility] [address] [place], [address] MR/CON.PCM.GIon 04-12-2024 MR/CON.PCM.GI Normal [facility] Magnesiumon 04-12-2024 Magnesium [Mass/Vol] 2.1 mg/dL Normal 1.6-2.6 [facility] Comment on above: Performed By: #### L 501.2300, L100.0100, L500.4050, L501.9520, L501.5200 ####[facility] [address] [place], [address] Partial Thromboplast Timeon 04-12-2024 aPTT Coag (Bld) [Time] 27.7 s Normal 24.1-36.2 [facility] Comment on above: Performed By: #### L 300.4310, L300.3900 ####[facility] [address] [place], [address] Phosphoruson 04-12-2024 Phosphate [Mass/Vol] 3.5 mg/dL Normal 2.5-4.9 [facility] Comment on above: Performed By: #### L 501.2300, L100.0100, L500.4050, L501.9520, L501.5200 ####[facility] [address] [place], [address] Prothrombin Time w/INRon INR Coag (PPP) [Relative time] 1.0 {INR} Normal [facility] Comment on above: Performed By: #### L 300.4310, L300.3900 ####[facility] [address] [place], [address] PT Coag (PPP) [Time] 13.1 s Normal 11.7-14.9 [facility] Comment on above: Performed By: #### L 300.4310, L300.3900 ####[facility] [address] [place], [address] Thyroid Stim Hormone (TSH)on 04-12-2024 TSH 3.360 uIU/mL Normal 0.358-3.740 [facility] Comment on above: Performed By: #### L 501.2300, L100.0100, L500.4050, L501.9520, L501.5200 ####[facility] [address] [place], [address] 12 Lead EKGon 04-11-2024 12 Lead EKG Normal [facility] BNP,B-Type NATRIURETIC PEPTI Иван 04-11-2024 Natriuretic peptide B (Bld) [Mass/Vol] 371.0 pg/mL High 0-100 [facility] Comment on above: Performed By: #### L 501.4020, L500.4050, L300.8000, L503.6620, L100.0100 ####[facility] [address] [place], [address] BRCon 04-11-2024 RC Normal [facility] Comment on above: Result Comment: [id number] OP RC TRANSFUSED 04/12/24 [id number] OP RC TRANSFUSED 04/11/24 2311 Performed By: #### B RC ####[facility] [address] [place], [address] Basic Metabolic Profile (BMP )on 04-11-2024 BUN/CRE 13.8 RATIO Normal 10-20 [facility] Comment on above: Order Comment: 'TROP ' Serial specimen #1, #2 or #3: 1 Performed By: #### L 300.3900, L500.2500, L501.4020, L100.0100, L500.3400, L300.4310, BTS, L501.2450 ####[facility] [address] [place], [address] CA,Total 8.7 mg/dL Normal 8.5-10.1 [facility] Comment on above: Order Comment: 'TROP ' Serial specimen #1, #2 or #3: 1 Performed By: #### L 300.3900, L500.2500, L501.4020, L100.0100, L500.3400, L300.4310, BTS, L501.2450 ####[facility] [address] [place], [address] Chloride [Moles/Vol] 105 mmol/L Normal 98-107 [facility] Comment on above: Order Comment: 'TROP ' Serial specimen #1, #2 or #3: 1 Performed By: #### L 300.3900, L500.2500, L501.4020, L100.0100, L500.3400, L300.4310, BTS, L501.2450 ####[facility] [address] [place], [address] CO2 [Moles/Vol] 26.0 mmol/L Normal 21.0-32.0 [facility] Comment on above: Order Comment: 'TROP ' Serial specimen #1, #2 or #3: 1 Performed By: #### L 300.3900, L500.2500, L501.4020, L100.0100, L500.3400, L300.4310, BTS, L501.2450 ####[facility] [address] [place], [address] Creatinine [Mass/Vol] 1.30 mg/dL Normal 0.70-1.[address] [facility] Comment on above: Order Comment: 'TROP ' Serial specimen #1, #2 or #3: 1 Result Comment: The validity of the calculated GFR GFRAA in patients over70 years has not been determined. Clinical correlation isessential. Performed By: #### L 300.3900, L500.2500, L501.4020, L100.0100, L500.3400, L300.4310, BTS, L501.2450 ####[facility] [address] [place], [address] ECRCL 45.94 ml/min Normal [facility] Comment on above: Order Comment: 'TROP ' Serial specimen #1, #2 or #3: 1 Performed By: #### L 300.3900, L500.2500, L501.4020, L100.0100, L500.3400, L300.4310, BTS, L501.2450 ####[facility] [address] [place], [address] EST GFR - AA 68 mL/min Normal >60 [facility] Comment on above: Order Comment: 'TROP ' Serial specimen #1, #2 or #3: 1 Result Comment: Afri can [place] GFR Calc Performed By: #### L 300.3900, L500.2500, L501.4020, L100.0100, L500.3400, L300.4310, BTS, L501.2450 ####[facility] [address] [place], [address] GAP 10 Normal 5-15 [facility] Comment on above: Order Comment: 'TROP ' Serial specimen #1, #2 or #3: 1 Performed By: #### L 300.3900, L500.2500, L501.4020, L100.0100, L500.3400, L300.4310, BTS, L501.2450 ####[facility] [address] [place], [address] GFR/1.73 sq M.predicted among non-blacks MDRD (S/P/Bld) [Vol rate/Area] 56 mL/min/{1.73_m2} Low >60 [facility] Comment on above: Order Comment: 'TROP ' Serial specimen #1, #2 or #3: 1 Result Comment: Non- GFR Calc Performed By: #### L 300.3900, L500.2500, L501.4020, L100.0100, L500.3400, L300.4310, BTS, L501.2450 ####[facility] [address] [place], [address] Glucose [Mass/Vol] 123 mg/dL High 74-106 [facility] Comment on above: Order Comment: 'TROP ' Serial specimen #1, #2 or #3: 1 Result Comment: Fast ing Glucose result from 100 to 125 mg/dLsuggests IMPAIRED HOMEOSTASIS per A.D.A. criteria. Performed By: #### L 300.3900, L500.2500, L501.4020, L100.0100, L500.3400, L300.4310, BTS, L501.2450 ####[facility] [id number] [place], [address] Potassium [Moles/Vol] 3.7 mmol/L Normal 3.5-5.[address] [facility] Comment on above: Order Comment: 'TROP ' Serial specimen #1, #2 or #3: 1 Performed By: #### L 300.3900, L500.2500, L501.4020, L100.0100, L500.3400, L300.4310, BTS, L501.2450 ####[facility] [id number] [place], [address] Sodium [Moles/Vol] 141 mmol/L Normal 136-145 [facility] Comment on above: Order Comment: 'TROP ' Serial specimen #1, #2 or #3: 1 Performed By: #### L 300.3900, L500.2500, L501.4020, L100.0100, L500.3400, L300.4310, BTS, L501.2450 ####[facility] [address] [place], [address] Urea nitrogen [Mass/Vol] 18 mg/dL Normal 7-18 [facility] Comment on above: Order Comment: 'TROP ' Serial specimen #1, #2 or #3: 1 Performed By: #### L 300.3900, L500.2500, L501.4020, L100.0100, L500.3400, L300.4310, BTS, L501.2450 ####[facility] [address] [place], [address] CBC W/Diff, Automatedon 04-01 Absolute Lymph 1.15 X10 3/uL Normal 0.83-4.51 [facility] Comment on above: Performed By: #### L 300.3900, L500.2500, L501.4020, L100.0100, L500.3400, L300.4310, BTS, L501.2450 ####[facility] [address] [place], [address] Absolute Neut 4.0 X10 3/uL Normal 2.0-7.7 [facility] Comment on above: Performed By: #### L 300.3900, L500.2500, L501.4020, L100.0100, L500.3400, L300.4310, BTS, L501.2450 ####[facility] [address] [place], [address] Basophils/100 WBC (Bld) 0.5 % Normal 0-1 [facility] Comment on above: Performed By: #### L 300.3900, L500.2500, L501.4020, L100.0100, L500.3400, L300.4310, BTS, L501.2450 ####[facility] [address] [place], [address] Eosinophils/100 WBC (Bld) 1.3 % Normal 0-5 [facility] Comment on above: Performed By: #### L 300.3900, L500.2500, L501.4020, L100.0100, L500.3400, L300.4310, BTS, L501.2450 ####[facility] [address] [place], [address] Erythrocyte distribution width (RBC) [Ratio] 13.2 % Normal 11.6-14.6 [facility] Comment on above: Performed By: #### L 300.3900, L500.2500, L501.4020, L100.0100, L500.3400, L300.4310, BTS, L501.2450 ####[facility] [address] [place], [address] Hematocrit (Bld) [Volume fraction] 21.3 % Low 40-54 [facility] Comment on above: Performed By: #### L 300.3900, L500.2500, L501.4020, L100.0100, L500.3400, L300.4310, BTS, L501.2450 ####[facility] [address] [place], [address] Hemoglobin (Bld) [Mass/Vol] 6.7 g/dL Low 13.0-16.5 [facility] Comment on above: Performed By: #### L 300.3900, L500.2500, L501.4020, L100.0100, L500.3400, L300.4310, BTS, L501.2450 ####[facility] [address] [place], [address] IG% 0.500 Normal 0.0-0.9 [facility] Comment on above: Result Comment: IG% - Immature Granulocytes (promyelocytes, myelocytes andmetamyelocytes) > 1% indicates that a LEFT SHIFT is Present. Performed By: #### L 300.3900, L500.2500, L501.4020, L100.0100, L500.3400, L300.4310, BTS, L501.2450 ####[facility] [address] [place], [address] Lymphocytes/100 WBC (Bld) 19.0 % Normal 19-41 [facility] Comment on above: Performed By: #### L 300.3900, L500.2500, L501.4020, L100.0100, L500.3400, L300.4310, BTS, L501.2450 ####[facility] [address] [place], [address] MCH (RBC) [Entitic mass] 26.7 pg Low 27.0-32.0 [facility] Comment on above: Performed By: #### L 300.3900, L500.2500, L501.4020, L100.0100, L500.3400, L300.4310, BTS, L501.2450 ####[facility] [address] [place], [address] MCHC (RBC) [Mass/Vol] 31.5 g/dL Low 32-[address] [facility] Comment on above: Performed By: #### L 300.3900, L500.2500, L501.4020, L100.0100, L500.3400, L300.4310, BTS, L501.2450 ####[facility] [address] [place], [address] MCV (RBC) [Entitic vol] 84.9 fL Normal 80-94 [facility] Comment on above: Performed By: #### L 300.3900, L500.2500, L501.4020, L100.0100, L500.3400, L300.4310, BTS, L501.2450 ####[facility] [address] [place], [address] Monocytes/100 WBC (Bld) 13.1 % High 0-10 [facility] Comment on above: Performed By: #### L 300.3900, L500.2500, L501.4020, L100.0100, L500.3400, L300.4310, BTS, L501.2450 ####[facility] [address] [place], [address] Neutrophils/100 WBC (Bld) 65.6 % Normal 47-70 [facility] Comment on above: Performed By: #### L 300.3900, L500.2500, L501.4020, L100.0100, L500.3400, L300.4310, BTS, L501.2450 ####[facility] [address] [place], [address] Nucleated RBC (Bld) [#/Vol] 0 10*3/uL Normal 0-5 [facility] Comment on above: Performed By: #### L 300.3900, L500.2500, L501.4020, L100.0100, L500.3400, L300.4310, BTS, L501.2450 ####[facility] [address] [place], [address] Platelet mean volume (Bld) [Entitic vol] 9.5 fL Normal 6.2-12.0 [facility] Comment on above: Performed By: #### L 300.3900, L500.2500, L501.4020, L100.0100, L500.3400, L300.4310, BTS, L501.2450 ####[facility] [address] [place], [address] Platelets (Bld) [#/Vol] 304 10*3/uL Normal 150-450 [facility] Comment on above: Performed By: #### L 300.3900, L500.2500, L501.4020, L100.0100, L500.3400, L300.4310, BTS, L501.2450 ####[facility] [address] [place], [address] RBC (Bld) [#/Vol] 2.51 10*6/uL Low 4.6-6.2 [facility] Comment on above: Performed By: #### L 300.3900, L500.2500, L501.4020, L100.0100, L500.3400, L300.4310, BTS, L501.2450 ####[facility] [address] [place], [address] RDW SD 40.7 fl Normal 35.1-43.9 [facility] Comment on above: Performed By: #### L 300.3900, L500.2500, L501.4020, L100.0100, L500.3400, L300.4310, BTS, L501.2450 ####[facility] [address] [place], [address] WBC (Bld) [#/Vol] 6.0 10*3/uL Normal 4.4-11.0 [facility] Comment on above: Performed By: #### L 300.3900, L500.2500, L501.4020, L100.0100, L500.3400, L300.4310, BTS, L501.2450 ####[facility] [address] [place], [address] Absolute Lymph 1.28 X10 3/uL Normal 0.83-4.51 [facility] Comment on above: Performed By: #### L 501.4020, L500.4050, L300.8000, L503.6620, L100.0100 ####[facility] [address] [place], [address] Absolute Neut 3.2 X10 3/uL Normal 2.0-7.7 [facility] Comment on above: Performed By: #### L 501.4020, L500.4050, L300.8000, L503.6620, L100.0100 ####[facility] [address] [place], [address] Basophils/100 WBC (Bld) 0.4 % Normal 0-1 [facility] Comment on above: Performed By: #### L 501.4020, L500.4050, L300.8000, L503.6620, L100.0100 ####[facility] [address] [place], [address] Eosinophils/100 WBC (Bld) 1.9 % Normal 0-5 [facility] Comment on above: Performed By: #### L 501.4020, L500.4050, L300.8000, L503.6620, L100.0100 ####[facility] [address] [place], [address] Erythrocyte distribution width (RBC) [Ratio] 13.4 % Normal 11.6-14.6 [facility] Comment on above: Performed By: #### L 501.4020, L500.4050, L300.8000, L503.6620, L100.0100 ####[facility] [address] [place], [address] Hematocrit (Bld) [Volume fraction] 23.9 % Low 40-54 [facility] Comment on above: Performed By: #### L 501.4020, L500.4050, L300.8000, L503.6620, L100.0100 ####[facility] [address] [place], [address] Hemoglobin (Bld) [Mass/Vol] 7.2 g/dL Low 13.0-16.5 [facility] Comment on above: Performed By: #### L 501.4020, L500.4050, L300.8000, L503.6620, L100.0100 ####[facility] [address] [place], [address] IG% 0.400 Normal 0.0-0.9 [facility] Comment on above: Result Comment: IG% - Immature Granulocytes (promyelocytes, myelocytes andmetamyelocytes) > 1% indicates that a LEFT SHIFT is Present. Performed By: #### L 501.4020, L500.4050, L300.8000, L503.6620, L100.0100 ####[facility] [address] [place], [address] Lymphocytes/100 WBC (Bld) 24.1 % Normal 19-41 [facility] Comment on above: Performed By: #### L 501.4020, L500.4050, L300.8000, L503.6620, L100.0100 ####[facility] [address] [place], [address] MCH (RBC) [Entitic mass] 26.2 pg Low 27.0-32.0 [facility] Comment on above: Performed By: #### L 501.4020, L500.4050, L300.8000, L503.6620, L100.0100 ####[facility] [address] [place], [address] MCHC (RBC) [Mass/Vol] 30.1 g/dL Low 32-[address] [facility] Comment on above: Performed By: #### L 501.4020, L500.4050, L300.8000, L503.6620, L100.0100 ####[facility] [address] [place], [address] MCV (RBC) [Entitic vol] 86.9 fL Normal 80-94 [facility] Comment on above: Performed By: #### L 501.4020, L500.4050, L300.8000, L503.6620, L100.0100 ####[facility] [address] [place], [address] Monocytes/100 WBC (Bld) 13.6 % High 0-10 [facility] Comment on above: Performed By: #### L 501.4020, L500.4050, L300.8000, L503.6620, L100.0100 ####[facility] [address] [place], [address] Neutrophils/100 WBC (Bld) 59.6 % Normal 47-70 [facility] Comment on above: Performed By: #### L 501.4020, L500.4050, L300.8000, L503.6620, L100.0100 ####[facility] [address] [place], [address] Nucleated RBC (Bld) [#/Vol] 0 10*3/uL Normal 0-5 [facility] Comment on above: Performed By: #### L 501.4020, L500.4050, L300.8000, L503.6620, L100.0100 ####[facility] [address] [place], [address] Platelet mean volume (Bld) [Entitic vol] 9.8 fL Normal 6.2-12.0 [facility] Comment on above: Performed By: #### L 501.4020, L500.4050, L300.8000, L503.6620, L100.0100 ####[facility] [address] [place], [address] Platelets (Bld) [#/Vol] 321 10*3/uL Normal 150-450 [facility] Comment on above: Performed By: #### L 501.4020, L500.4050, L300.8000, L503.6620, L100.0100 ####[facility] [address] [place], [address] RBC (Bld) [#/Vol] 2.75 10*6/uL Low 4.6-6.2 [facility] Comment on above: Performed By: #### L 501.4020, L500.4050, L300.8000, L503.6620, L100.0100 ####[facility] [address] [place], [address] RDW SD 42.7 fl Normal 35.1-43.9 [facility] Comment on above: Performed By: #### L 501.4020, L500.4050, L300.8000, L503.6620, L100.0100 ####[facility] [address] [place], [address] WBC (Bld) [#/Vol] 5.3 10*3/uL Normal 4.4-11.0 [facility] Comment on above: Performed By: #### L 501.4020, L500.4050, L300.8000, L503.6620, L100.0100 ####[facility] [address] [place], [address] CTA Chst, Abd, Pel W and/or WOon 04-11-2024 CTA Chst, Abd, Pel W and/or WO Normal [facility] Comprehensive Metabolic Prof ilon 04-11-2024 Albumin [Mass/Vol] 3.5 g/dL Normal 3.2-5.0 [facility] Comment on above: Order Comment: 1 Performed By: #### L 501.4020, L500.4050, L300.8000, L503.6620, L100.0100 ####[facility] [address] [place], [address] Albumin/Globulin [Mass ratio] 1.0 {ratio} Normal 0.9-2.4 [facility] Comment on above: Order Comment: 1 Performed By: #### L 501.4020, L500.4050, L300.8000, L503.6620, L100.0100 ####[facility] [address] [place], [address] ALK P 89 U/L Normal 45-117 [facility] Comment on above: Order Comment: 1 Performed By: #### L 501.4020, L500.4050, L300.8000, L503.6620, L100.0100 ####[facility] [address] [place], [address] ALT [Catalytic activity/Vol] 19 U/L Normal 16-61 [facility] Comment on above: Order Comment: 1 Performed By: #### L 501.4020, L500.4050, L300.8000, L503.6620, L100.0100 ####[facility] [address] [place], [address] AST [Catalytic activity/Vol] 19 U/L Normal 15-37 [facility] Comment on above: Order Comment: 1 Performed By: #### L 501.4020, L500.4050, L300.8000, L503.6620, L100.0100 ####[facility] [address] [place], [address] Bilirubin [Mass/Vol] 0.30 mg/dL Normal 0.20-1.00 [facility] Comment on above: Order Comment: 1 Result Comment: For patients on eltrombopag therapy, use of Dimension [place] TBIL is not recommended. Performed By: #### L 501.4020, L500.4050, L300.8000, L503.6620, L100.0100 ####[facility] [address] [place], [address] BUN/CRE 13.2 RATIO Normal 10-20 [facility] Comment on above: Order Comment: 1 Performed By: #### L 501.4020, L500.4050, L300.8000, L503.6620, L100.0100 ####[facility] [address] [place], [address] CA,Total 9.2 mg/dL Normal 8.5-10.1 [facility] Comment on above: Order Comment: 1 Performed By: #### L 501.4020, L500.4050, L300.8000, L503.6620, L100.0100 ####[facility] [address] [place], [address] Chloride [Moles/Vol] 104 mmol/L Normal 98-107 [facility] Comment on above: Order Comment: 1 Performed By: #### L 501.4020, L500.4050, L300.8000, L503.6620, L100.0100 ####[facility] [address] [place], [address] CO2 [Moles/Vol] 26.0 mmol/L Normal 21.0-32.0 [facility] Comment on above: Order Comment: 1 Performed By: #### L 501.4020, L500.4050, L300.8000, L503.6620, L100.0100 ####[facility] [address] [place], [address] Creatinine [Mass/Vol] 1.14 mg/dL Normal 0.70-1.[address] [facility] Comment on above: Order Comment: 1 Result Comment: The validity of the calculated GFR GFRAA in patients over70 years has not been determined. Clinical correlation isessential. Performed By: #### L 501.4020, L500.4050, L300.8000, L503.6620, L100.0100 ####[facility] [address] [place], [address] EST GFR - AA 80 mL/min Normal >60 [facility] Comment on above: Order Comment: 1 Result Comment: Afri can [place] GFR Calc Performed By: #### L 501.4020, L500.4050, L300.8000, L503.6620, L100.0100 ####[facility] [address] [place], [address] GAP 6 Normal 5-15 [facility] Comment on above: Order Comment: 1 Performed By: #### L 501.4020, L500.4050, L300.8000, L503.6620, L100.0100 ####[facility] [address] [place], [address] GFR/1.73 sq M.predicted among non-blacks MDRD (S/P/Bld) [Vol rate/Area] 66 mL/min/{1.73_m2} Normal >60 [facility] Comment on above: Order Comment: 1 Result Comment: Non- GFR Calc Performed By: #### L 501.4020, L500.4050, L300.8000, L503.6620, L100.0100 ####[facility] [address] [place], [address] Globulin (S) [Mass/Vol] 3.4 g/dL Normal 2.2-4.2 [facility] Comment on above: Order Comment: 1 Performed By: #### L 501.4020, L500.4050, L300.8000, L503.6620, L100.0100 ####[facility] [address] [place], [address] Glucose [Mass/Vol] 108 mg/dL High 74-106 [facility] Comment on above: Order Comment: 1 Result Comment: Fast ing Glucose result from 100 to 125 mg/dLsuggests IMPAIRED HOMEOSTASIS per A.D.A. criteria. Performed By: #### L 501.4020, L500.4050, L300.8000, L503.6620, L100.0100 ####[facility] [address] [place], [address] Potassium [Moles/Vol] 3.9 mmol/L Normal 3.5-5.[address] [facility] Comment on above: Order Comment: 1 Performed By: #### L 501.4020, L500.4050, L300.8000, L503.6620, L100.0100 ####[facility] [address] [place], [address] Sodium [Moles/Vol] 136 mmol/L Normal 136-145 [facility] Comment on above: Order Comment: 1 Performed By: #### L 501.4020, L500.4050, L300.8000, L503.6620, L100.0100 ####[facility] [address] [place], [address] T PROT 6.9 g/dL Normal 6.4-8.2 [facility] Comment on above: Order Comment: 1 Performed By: #### L 501.4020, L500.4050, L300.8000, L503.6620, L100.0100 ####[facility] [address] [place], [address] Urea nitrogen [Mass/Vol] 15 mg/dL Normal 7-18 [facility] Comment on above: Order Comment: 1 Performed By: #### L 501.4020, L500.4050, L300.8000, L503.6620, L100.0100 ####[facility] [address] [place], [address] D-Dimer Quantitative (DVT/PE )on 04-11-2024 D-DIMER QUANT 2.00 FEU/ug/m Invalid Interpretation Code 0.27-0.49 [facility] Comment on above: Result Comment: D-Di gita ELEVATED (>0.49): Additional studies and clinicalassessments are indicated to conclude diagnosis of:Deep Vein Thrombosis (DVT) or Pulmonary Embolism (PE)CRITICAL VALUE CALLED TO MARIELA OLSON04/11/24 Keon Bolanos.RESULTS READ BACK BY SAME. Performed By: #### L 501.4020, L500.4050, L300.8000, L503.6620, L100.0100 ####[facility] [address] [place], [address] Emergency Department Summary on 04-11-2024 Emergency Department Summary Normal [facility] H AND P Exam - Hospitaliston 04-11-2024 H&P Exam - Hospitalist Normal [facility] L501.4020on 04-11-2024 TROPONIN-I HS 124 pg/mL Invalid Interpretation Code 3.0-78.0 [facility] Comment on above: Order Comment: 'TROP ' Serial specimen #1, #2 or #3: 1 Result Comment: Plea se Note: New Test Units and Gender Specific Reference Ranges. For more information see Policy Stat Procedure [place] High Sensitivity Troponin (TNIH) and attachments. Performed By: #### L 300.3900, L500.2500, L501.4020, L100.0100, L500.3400, L300.4310, BTS, L501.2450 ####[facility] [address] [place], [address] TROPONIN-I HS 123 pg/mL Invalid Interpretation Code 3.0-78.0 [facility] Comment on above: Order Comment: 1 Result Comment: CRIT ICAL VALUE CALLED TO MARIELA OLSON04/11/24 1822 Gudelia Ramosxler.RESULTS READ BACK BY SAME. Please Note: New Test Units and Gender Specific Reference Ranges. For more information see Policy Stat Procedure [place] High Sensitivity Troponin (TNIH) and attachments. Performed By: #### L 501.4020, L500.4050, L300.8000, L503.6620, L100.0100 ####[facility] [address] [place], [place], [address] Lipaseon 04-11-2024 Lipase [Catalytic activity/Vol] 29 U/L Normal 13-75 [facility] Comment on above: Order Comment: 'TROP ' Serial specimen #1, #2 or #3: 1 Result Comment: Plea se note:LIPASE revised reference range effective 22.New Lipase methodology. Expected to produce lower valuesthan the previous assay method.NEW Reference Range: 13 - 75 U/L Performed By: #### L 300.3900, L500.2500, L501.4020, L100.0100, L500.3400, L300.4310, BTS, L501.2450 ####[facility] [address] [place], [address] Liver Profileon 04-11-2024 Albumin [Mass/Vol] 3.4 g/dL Normal 3.2-5.0 [facility] Comment on above: Order Comment: 'TROP ' Serial specimen #1, #2 or #3: 1 Performed By: #### L 300.3900, L500.2500, L501.4020, L100.0100, L500.3400, L300.4310, BTS, L501.2450 ####[facility] [address] [place], [address] ALK P 87 U/L Normal 45-117 [facility] Comment on above: Order Comment: 'TROP ' Serial specimen #1, #2 or #3: 1 Performed By: #### L 300.3900, L500.2500, L501.4020, L100.0100, L500.3400, L300.4310, BTS, L501.2450 ####[facility] [address] [place], [address] ALT [Catalytic activity/Vol] 18 U/L Normal 16-61 [facility] Comment on above: Order Comment: 'TROP ' Serial specimen #1, #2 or #3: 1 Performed By: #### L 300.3900, L500.2500, L501.4020, L100.0100, L500.3400, L300.4310, BTS, L501.2450 ####[facility] [address] [place], [address] AST [Catalytic activity/Vol] 15 U/L Normal 15-37 [facility] Comment on above: Order Comment: 'TROP ' Serial specimen #1, #2 or #3: 1 Performed By: #### L 300.3900, L500.2500, L501.4020, L100.0100, L500.3400, L300.4310, BTS, L501.2450 ####[facility] [address] [place], [address] Bilirubin [Mass/Vol] 0.30 mg/dL Normal 0.20-1.00 [facility] Comment on above: Order Comment: 'TROP ' Serial specimen #1, #2 or #3: 1 Result Comment: For patients on eltrombopag therapy, use of Dimension [place] TBIL is not recommended. Performed By: #### L 300.3900, L500.2500, L501.4020, L100.0100, L500.3400, L300.4310, BTS, L501.2450 ####[facility] [address] [place], [address] Bilirubin.direct [Mass/Vol] 0.09 mg/dL Normal 0.00-0.30 [facility] Comment on above: Order Comment: 'TROP ' Serial specimen #1, #2 or #3: 1 Performed By: #### L 300.3900, L500.2500, L501.4020, L100.0100, L500.3400, L300.4310, BTS, L501.2450 ####[facility] [address] [place], [address] Globulin (S) [Mass/Vol] 3.2 g/dL Normal 2.2-4.2 [facility] Comment on above: Order Comment: 'TROP ' Serial specimen #1, #2 or #3: 1 Performed By: #### L 300.3900, L500.2500, L501.4020, L100.0100, L500.3400, L300.4310, BTS, L501.2450 ####[facility] [address] [place], [address] T PROT 6.6 g/dL Normal 6.4-8.2 [facility] Comment on above: Order Comment: 'TROP ' Serial specimen #1, #2 or #3: 1 Performed By: #### L 300.3900, L500.2500, L501.4020, L100.0100, L500.3400, L300.4310, BTS, L501.2450 ####[facility] [address] [place], [address] Partial Thromboplast Timeon 04-11-2024 aPTT Coag (Bld) [Time] 27.9 s Normal 24.1-36.2 [facility] Comment on above: Performed By: #### L 300.3900, L500.2500, L501.4020, L100.0100, L500.3400, L300.4310, BTS, L501.2450 ####[facility] [address] [place], [address] Prothrombin Time w/INRon INR Coag (PPP) [Relative time] 1.1 {INR} Normal [facility] Comment on above: Performed By: #### L 300.3900, L500.2500, L501.4020, L100.0100, L500.3400, L300.4310, BTS, L501.2450 ####[facility] [id number] [place], [address] PT Coag (PPP) [Time] 13.8 s Normal 11.7-14.9 [facility] Comment on above: Performed By: #### L 300.3900, L500.2500, L501.4020, L100.0100, L500.3400, L300.4310, BTS, L501.2450 ####[facility] [id number] [place], [address] Type AND Screenon 04-11-2024 Ab SCREEN GEL Negative Normal [facility] Comment on above: Order Comment: A Performed By: #### L 300.3900, L500.2500, L501.4020, L100.0100, L500.3400, L300.4310, BTS, L501.2450 ####[facility] [id number] [place], [address] ABO and Rh group Nom (Bld) Blood group O Rh(D) positive Normal [facility] Comment on above: Order Comment: A Performed By: #### L 300.3900, L500.2500, L501.4020, L100.0100, L500.3400, L300.4310, BTS, L501.2450 ####[facility] [id number] [place], [address] MR/BMS.BVSon 02-15-2024 MR/BMS.BVS Normal [facility] CREATININE FINGERSTICKon CREATININE WB < 1.0 Normal 0.70-1.30 [facility] Comment on above: Performed By: #### L 9100.0200 ####[facility] [id number] [place], [address] EGFR WB > 60.0000 Normal >60 [facility] Comment on above: Performed By: #### L 9100.0200 ####[facility] [id number] [place], [address] CTA Abd w/Runoff W/WO Contra ston 02-03-2024 CTA Abd w/Runoff W/WO Contrast Normal [facility] Absolute lymphocyte countOrd ered By: Stevie Vela on 12-11-2023 Lymphocytes Auto (Unsp spec) [#/Vol] 1.38 10*3/uL 0.83-4.51 [facility] Automated lymphocyte count a s percentage of total leukocytesOrdered By: Stevie Vela on 12-11-2023 Lymphocytes/100 WBC Auto (Unsp spec) 23.2 % 19-41 [facility] Basophil percentageOrdered B y: Stevie Vela on 12-11-2023 Basophils/100 WBC (Bld) 0.5 % 0-1 [facility] Chloride [Moles/Vol] 105 mmol/L 98-107 [facility] Eosinophils/100 WBC (Bld) 2.2 % 0-5 [facility] Glucose [Mass/Vol] 107 mg/dL 74-106 [facility] Comment on above: Fasting Glucose resu lt from 100 to 125 mg/dL suggests IMPAIRED HOMEOSTASIS per A.D.A. criteria. Hemoglobin (Bld) [Mass/Vol] 11.7 g/dL 13.0-16.5 [facility] Monocytes/100 WBC (Bld) 9.4 % 0-10 [facility] Neutrophils (Bld) [#/Vol] 3.8 10*3/uL 2.0-7.7 [facility] Neutrophils/100 WBC (Bld) 64.4 % 47-70 [facility] Potassium [Moles/Vol] 4.1 mmol/L 3.5-5.[address] [facility] Sodium [Moles/Vol] 138 mmol/L 136-145 [facility] WBC (Bld) [#/Vol] 5.9 10*3/uL 4.4-11.0 [facility] Determination of erythrocyte mean corpuscular volume (MCV)Ordered By: Stevie Vela on 12-11-2023 MCV (RBC) [Entitic vol] 90.7 fL 80-94 [facility] Erythrocyte distribution wid th ratioOrdered By: Stevie Vela on 12-11-2023 Erythrocyte distribution width (RBC) [Ratio] 12.8 % 11.6-14.6 [facility] Erythrocyte distribution wid th standard deviationOrdered By: Stevie Vela on 12-11-2023 Erythrocyte distribution width (RBC) [Entitic vol] 41.6 fL 35.1-43.9 [facility] Hematocrit Auto (Bld) [Volum e fraction]Ordered By: Stevie Vela on 12-11-2023 Hematocrit (Bld) [Volume fraction] 35.1 % 40-54 [facility] Immature granulocytes/100 WB C Auto (Bld)Ordered By: Stevie Vela on 12-11-2023 Immature granulocytes/100 WBC (Bld) 0.300 % 0.0-0.9 [facility] Comment on above: IG% - Immature Granu locytes (promyelocytes, myelocytes and metamyelocytes) > 1% indicates that a LEFT SHIFT is Present. Laboratory - Chemistry and C hemistry - challengeOrdered By: Stevie Vela on 12-11-2023 CO2 [Moles/Vol] 27.0 mmol/L 21.0-32.0 [facility] Urea nitrogen/Creatinine [Mass ratio] 20.3 mg/mg 10-20 [facility] Laboratory - Hematology and Cell countsOrdered By: Stevie Vela on 12-11-2023 MCH (RBC) [Entitic mass] 30.2 pg 27.0-32.0 [facility] MCHC (RBC) [Mass/Vol] 33.3 g/dL 32-[address] [facility] Nucleated RBC/100 WBC (Bld) [Ratio] 0 % 0-5 [facility] Platelet mean volume (Bld) [Entitic vol] 9.8 fL 6.2-12.0 [facility] Platelets (Bld) [#/Vol] 233 10*3/uL 150-450 [facility] No Panel InformationOrdered By: Stevie Vela on 12-11-2023 Estimated Creatinine Clearance Calc 54.39 ml/min [facility] Estimated GFR (MDRD) Amer 76 mL/min >60 [facility] Comment on above: GFR Calc Estimated GFR (MDRD) Non-Af Amer 63 mL/min >60 [facility] Comment on above: Non- GFR Calc Troponin I High Sensitivity 77 pg/mL 3.0-78.0 [facility] Comment on above: Please Note: New Wendy t Units and Gender Specific Reference Ranges. For more information see Policy Stat Procedure [place] High Sensitivity Troponin (TNIH) and attachments. RBC Auto (Bld) [#/Vol]Ordere d By: Stevie Vela on 12-11-2023 RBC (Bld) [#/Vol] 3.87 10*6/uL 4.6-6.2 [facility] Serum or plasma calcium shagufta urement (mass/volume)Ordered By: Stevie Vela on 12-11-2023 Calcium [Mass/Vol] 8.8 mg/dL 8.5-10.1 [facility] Serum or plasma creatinine m easurement (mass/volume)Ordered By: Stevie Vela on 12-11-2023 Creatinine [Mass/Vol] 1.18 mg/dL 0.70-1.[address] [facility] Comment on above: The validity of the calculated GFR & GFRAA in patients over 70 years has not been determined. Clinical correlation is essential. Serum or plasma urea nitroge n measurement (mass/volume)Ordered By: Stevie Vela on 12-11-2023 Urea nitrogen [Mass/Vol] 24 mg/dL 7-18 [facility] Thin prep Papanicolaou smear with manual screeningOrdered By: Stevie Vela on 12-11-2023 Thin prep Papanicolaou smear with manual screening 6 -15 [facility] Basophil percentageOrdered B y: Neville Islas on 08-22-2023 Testosterone [Mass/Vol] 374 ng/dL 264-916 [facility] Comment on above: Adult male reference interval is based on a population ofhealthy nonobese males (BMI <30) between 19 and 39 yearsold. michelle Jordan.al. JCEM 2017,102;[id number]. PMID:[id number]. Free testosterone percentage Ordered By: Neville Islas on 08-22-2023 Testosterone Free/Testosterone.tota l [Mass fraction] 1.85 % 1.50-4.20 [facility] Laboratory - Chemistry and C hemistry - challengeOrdered By: Neville Islas on 08-22-2023 Prolactin IA Qn 11.4 ng/mL [facility] Comment on above: NORMAL REFERENCE RAN GES FEMALE NON- 2.2 - 30.3 ng/mL 8.1 - 347.6 ng/mL POST-MENOPAUSAL 0.7 - 31.5 ng/mL MALE 2.5 - 17.4 ng/mL Transferrin [Mass/Vol] 250 mg/dL 177-329 [facility] Comment on above: Performed at: - [address] [id number] Director: Jian Paredes PhD, Phone: [phone] at: [facility] [id number] Director: Tejal Dumas MD, Phone: [phone] Serum or plasma testosterone free measurement (mass/volume)Ordered By: Neville Islas on 08-22-2023 Testosterone Free [Mass/Vol] 6.92 ng/dL 5.00-21.00 [facility] Serum or plasma thyroid stim ulating hormone (TSH) measurement (units/volume)Ordered By: Neville Islas on 08-22-2023 TSH Qn 4.59 uIU/mL 0.358-3.74 [facility] Absolute lymphocyte countOrd ered By: Darrel Sanders on 08-16-2023 Lymphocytes Auto (Unsp spec) [#/Vol] 2.04 10*3/uL 0.83-4.51 [facility] Basophil percentageOrdered B y: Darrel Sanders on 08-16-2023 Basophil percentage 3.1 mg/dL 2.5-4.9 [facility] Basophils/100 WBC (Bld) 0.3 % 0-1 [facility] Bilirubin [Mass/Vol] 0.80 mg/dL 0.20-1.00 [facility] Comment on above: For patients on eltr ombopag therapy, use of Dimension [place] TBIL is not recommended. Chloride [Moles/Vol] 105 mmol/L 98-107 [facility] Cholesterol [Mass/Vol] 203 mg/dL <200 [facility] Comment on above: <200 mg/dL Desirable 200-240 mg/dL Borderline >240 mg/dL High Risk Eosinophils/100 WBC (Bld) 1.9 % 0-5 [facility] Glucose [Mass/Vol] 91 mg/dL 74-106 [facility] Neutrophils (Bld) [#/Vol] 3.5 10*3/uL 2.0-7.7 [facility] Neutrophils/100 WBC (Bld) 56.6 % 47-70 [facility] Potassium [Moles/Vol] 3.7 mmol/L 3.5-5.[address] [facility] Protein [Mass/Vol] 7.3 g/dL 6.4-8.2 [facility] Sodium [Moles/Vol] 137 mmol/L 136-145 [facility] Triglyceride [Mass/Vol] 105 mg/dL <199 [facility] Comment on above: The drugs N-Acetylcy steine and Metamizole may falsely depress this assay.Serum Triglycerides Reference Interval Normal <150 mg/dL Borderline high 150 - 199 mg/dL High 200 - 499 mg/dL Very High > or = 500 mg/dL WBC (Bld) [#/Vol] 6.2 10*3/uL 4.4-11.0 [facility] Blood erythrocytes count (nu mber/volume)Ordered By: Darrel Sanders on 08-16-2023 RBC (Bld) [#/Vol] 4.25 10*6/uL 4.6-6.2 [facility] Blood hemoglobin measurement (mass/volume)Ordered By: Darrel Sanders on 08-16-2023 Hemoglobin (Bld) [Mass/Vol] 12.7 g/dL 13.0-16.5 [facility] Blood lymphocytes/100 leukoc ytesOrdered By: Darrel Sanders on 08-16-2023 Lymphocytes/100 WBC (Bld) 32.7 % 19-41 [facility] Blood monocytes/100 leukocyt esOrdered By: Darrel Sanders on 08-16-2023 Monocytes/100 WBC (Bld) 8.3 % 0-10 [facility] Blood platelet mean volumeOr dered By: Darrel Sanders on 08-16-2023 Platelet mean volume (Bld) [Entitic vol] 9.9 fL 6.2-12.0 [facility] Determination of erythrocyte mean corpuscular volume (MCV)Ordered By: Darrel Sanders on 08-16-2023 MCV (RBC) [Entitic vol] 89.2 fL 80-94 [facility] Hematocrit Auto (Bld) [Volum e fraction]Ordered By: Darrel Sanders on 08-16-2023 Hematocrit (Bld) [Volume fraction] 37.9 % 40-54 [facility] Laboratory - Chemistry and C hemistry - challengeOrdered By: Darrel Sanders on 08-16-2023 ALP [Catalytic activity/Vol] 87 U/L 45-117 [facility] ALT [Catalytic activity/Vol] 28 U/L 16-61 [facility] CO2 [Moles/Vol] 26.0 mmol/L 21.0-32.0 [facility] Globulin (S) [Mass/Vol] 3.5 g/dL 2.2-4.2 [facility] Magnesium [Mass/Vol] 2.2 mg/dL 1.6-2.6 [facility] Urea nitrogen/Creatinine [Mass ratio] 18.6 mg/mg 10-20 [facility] Laboratory - Hematology and Cell countsOrdered By: Darrel Sanders on 08-16-2023 Erythrocyte distribution width (RBC) [Entitic vol] 43.4 fL 35.1-43.9 [facility] Erythrocyte distribution width (RBC) [Ratio] 13.3 % 11.6-14.6 [facility] Immature granulocytes/100 WBC (Bld) 0.200 % 0.0-0.9 [facility] Comment on above: IG% - Immature Granu locytes (promyelocytes, myelocytes and metamyelocytes) > 1% indicates that a LEFT SHIFT is Present. MCH (RBC) [Entitic mass] 29.9 pg 27.0-32.0 [facility] Nucleated RBC/100 WBC (Bld) [Ratio] 0 % 0-5 [facility] MCHC Auto (RBC) [Mass/Vol]Or dered By: Darrel Sanders on 08-16-2023 MCHC (RBC) [Mass/Vol] 33.5 g/dL 32-[address] [facility] No Panel InformationOrdered By: Darrel Sanders on 08-16-2023 Estimated Creatinine Clearance Calc 58.72 ml/min [facility] Estimated GFR (MDRD) Amer 91 mL/min >60 [facility] Comment on above: GFR Calc Estimated GFR (MDRD) Non-Af Amer 75 mL/min >60 [facility] Comment on above: Non- GFR Calc D-Dimer Quantitative (PE/DVT) 0.79 FEU/ug/m 0.27-0.49 [facility] Comment on above: D-Dimer ELEVATED (>0 .49): Additional studies and clinicalassessments are indicated to conclude diagnosis of:Deep Vein Thrombosis (DVT) or Pulmonary Embolism (PE)CRITICAL VALUE VERIFIED. CALLED TO [id number] Nannette Cardenas.RESULTS READ BACK BY SAME. Troponin I High Sensitivity 96 pg/mL 3.0-78.0 [facility] Comment on above: Please Note: New Wendy t Units and Gender Specific Reference Ranges. For more information see Policy Stat Procedure [place] High Sensitivity Troponin (TNIH) and attachments. Platelets bldOrdered By: Esdras Sanders on 08-16-2023 Platelets (Bld) [#/Vol] 250 10*3/uL 150-450 [facility] Serum or plasma albumin shagufta urement (mass/volume)Ordered By: Darrel Sanders on 08-16-2023 Albumin [Mass/Vol] 3.8 g/dL 3.2-5.0 [facility] Serum or plasma albumin/glob ulin mass ratioOrdered By: Darrel Sanders on 08-16-2023 Albumin/Globulin [Mass ratio] 1.1 {ratio} 0.9-2.4 [facility] Serum or plasma calcium shagufta urement (mass/volume)Ordered By: Darrel Sanders on 08-16-2023 Calcium [Mass/Vol] 9.4 mg/dL 8.5-10.1 [facility] Serum or plasma cholesterol in HDL measurement (mass/volume)Ordered By: Darrel Sanders on 08-16-2023 Cholesterol in HDL [Mass/Vol] 59 mg/dL >40 [facility] Comment on above: The drugs N-Acetylcy steine and Metamizole may falsely depress this assay. Reference Range HDL <40 mg/dL Low HDL Cholesterol HDL >or= 60 mg/dL High HDL Cholesterol Serum or plasma cholesterol in VLDL measurement (mass/volume)Ordered By: Darrel Sanders on 08-16-2023 Cholesterol in VLDL [Mass/Vol] 21 mg/dL 5-40 [facility] Serum or plasma creatinine m easurement (mass/volume)Ordered By: Darrel Sanders on 08-16-2023 Creatinine [Mass/Vol] 1.02 mg/dL 0.70-1.[address] [facility] Comment on above: The validity of the calculated GFR & GFRAA in patients over 70 years has not been determined. Clinical correlation is essential. Serum or plasma low density lipoprotein (LDL) cholesterol measurement (mass/volume)Ordered By: Darrel Sanders on 08-16-2023 Cholesterol in LDL [Mass/Vol] 123 mg/dL 0-130 [facility] Serum or plasma thyroid stim ulating hormone (TSH) measurement (units/volume)Ordered By: Lucy Polanco on 08-16-2023 TSH Qn 4.27 uIU/mL 0.358-3.74 [facility] Serum or plasma urea nitroge n measurement (mass/volume)Ordered By: Darrel Sanders on 08-16-2023 Urea nitrogen [Mass/Vol] 19 mg/dL 7-18 [facility] Thin prep Papanicolaou smear with manual screeningOrdered By: Darrel Sanders on 08-16-2023 Thin prep Papanicolaou smear with manual screening 25 U/L 15-37 [facility] Thin prep Papanicolaou smear with manual screening 6 5-15 [facility] Thin prep Papanicolaou smear with manual screeningOrdered By: Lucy Polanco on 08-16-2023 Thin prep Papanicolaou smear with manual screening 0.97 ng/dL 0.76-1.46 [facility] Absolute lymphocyte countOrd ered By: Faustina Garrison on 08-15-2023 Lymphocytes Auto (Unsp spec) [#/Vol] 1.56 10*3/uL 0.83-4.51 [facility] Basophil percentageOrdered B y: Faustina Garrison on 08-15-2023 Basophil percentage 0 SEEN /hpf 0-5 [facility] Basophils/100 WBC (Bld) 0.5 % 0-1 [facility] Bilirubin [Mass/Vol] 0.60 mg/dL 0.20-1.00 [facility] Comment on above: For patients on eltr ombopag therapy, use of Dimension [place] TBIL is not recommended. Chloride [Moles/Vol] 100 mmol/L 98-107 [facility] Eosinophils/100 WBC (Bld) 2.9 % 0-5 [facility] Glucose [Mass/Vol] 99 mg/dL 74-106 [facility] Neutrophils (Bld) [#/Vol] 3.9 10*3/uL 2.0-7.7 [facility] Neutrophils/100 WBC (Bld) 62.4 % 47-70 [facility] Potassium [Moles/Vol] 4.7 mmol/L 3.5-5.[address] [facility] Comment on above: Slight Hemolysis, Re sult may be falsely increased. Protein [Mass/Vol] 7.6 g/dL 6.4-8.2 [facility] Sodium [Moles/Vol] 136 mmol/L 136-145 [facility] WBC (Bld) [#/Vol] 6.2 10*3/uL 4.4-11.0 [facility] Bilirubin Test strip Ql (U)O rdered By: Faustina Garrison on 08-15-2023 Bilirubin Ql (U) Negative Negative [facility] Blood erythrocytes count (nu mber/volume)Ordered By: Faustina Garrison on 08-15-2023 RBC (Bld) [#/Vol] 4.26 10*6/uL 4.6-6.2 [facility] Blood hemoglobin measurement (mass/volume)Ordered By: Faustina Garrison on 08-15-2023 Hemoglobin (Bld) [Mass/Vol] 13.2 g/dL 13.0-16.5 [facility] Blood lymphocytes/100 leukoc ytesOrdered By: Faustina Garrison on 08-15-2023 Lymphocytes/100 WBC (Bld) 25.1 % 19-41 [facility] Blood monocytes/100 leukocyt esOrdered By: Faustina Garrison on 08-15-2023 Monocytes/100 WBC (Bld) 8.8 % 0-10 [facility] Blood platelet mean volumeOr dered By: Faustina Garrison on 08-15-2023 Platelet mean volume (Bld) [Entitic vol] 9.9 fL 6.2-12.0 [facility] Determination of erythrocyte mean corpuscular volume (MCV)Ordered By: Faustina Garrison on 08-15-2023 MCV (RBC) [Entitic vol] 90.6 fL 80-94 [facility] Hematocrit Auto (Bld) [Volum e fraction]Ordered By: Faustina Garrison on 08-15-2023 Hematocrit (Bld) [Volume fraction] 38.6 % 40-54 [facility] Ketones Test strip Ql (U)Ord ered By: Faustina Grarison on 08-15-2023 Ketones Ql (U) Negative Negative [facility] Laboratory - Chemistry and C hemistry - challengeOrdered By: Faustina Garrison on 08-15-2023 ALP [Catalytic activity/Vol] 97 U/L 45-117 [facility] ALT [Catalytic activity/Vol] 31 U/L 16-61 [facility] CO2 [Moles/Vol] 28.0 mmol/L 21.0-32.0 [facility] Globulin (S) [Mass/Vol] 3.7 g/dL 2.2-4.2 [facility] Magnesium [Mass/Vol] 2.0 mg/dL 1.6-2.6 [facility] Comment on above: Slight Hemolysis, Re sult may be falsely increased. Urea nitrogen/Creatinine [Mass ratio] 18.0 mg/mg 10-20 [facility] Laboratory - Hematology and Cell countsOrdered By: Faustina Garrison on 08-15-2023 Erythrocyte distribution width (RBC) [Entitic vol] 43.6 fL 35.1-43.9 [facility] Erythrocyte distribution width (RBC) [Ratio] 13.2 % 11.6-14.6 [facility] Immature granulocytes/100 WBC (Bld) 0.300 % 0.0-0.9 [facility] Comment on above: IG% - Immature Granu locytes (promyelocytes, myelocytes and metamyelocytes) > 1% indicates that a LEFT SHIFT is Present. MCH (RBC) [Entitic mass] 31.0 pg 27.0-32.0 [facility] Nucleated RBC/100 WBC (Bld) [Ratio] 0 % 0-5 [facility] MCHC Auto (RBC) [Mass/Vol]Or dered By: Faustina Garrison on 08-15-2023 MCHC (RBC) [Mass/Vol] 34.2 g/dL 32-[address] [facility] Mucus LM Ql (Urine sed)Order ed By: Faustina Garrison on 08-15-2023 Mucus Ql (Urine sed) 0 SEEN /hpf [facility] Nitrite Test strip Ql (U)Ord ered By: Faustina Garrison on 08-15-2023 Nitrite Ql (U) Negative Negative [facility] No Panel InformationOrdered By: Faustina Garrison on 08-15-2023 Troponin I High Sensitivity 85 pg/mL 3.0-78.0 [facility] Comment on above: Please Note: New Wendy t Units and Gender Specific Reference Ranges. For more information see Policy Stat Procedure [place] High Sensitivity Troponin (TNIH) and attachments. Estimated Creatinine Clearance Calc 52.21 ml/min [facility] Estimated GFR (MDRD) Amer 82 mL/min >60 [facility] Comment on above: GFR Calc Estimated GFR (MDRD) Non-Af Amer 68 mL/min >60 [facility] Comment on above: Non- GFR Calc Platelets bldOrdered By: Natali Garrison on 08-15-2023 Platelets (Bld) [#/Vol] 242 10*3/uL 150-450 [facility] Protein Test strip Ql (U)Ord ered By: Faustina Garrison on 08-15-2023 Protein Ql (U) Negative Negative [facility] Serum or plasma albumin shagufta urement (mass/volume)Ordered By: Faustina Garrison on 08-15-2023 Albumin [Mass/Vol] 3.9 g/dL 3.2-5.0 [facility] Serum or plasma albumin/glob ulin mass ratioOrdered By: Faustina Garrison on 08-15-2023 Albumin/Globulin [Mass ratio] 1.1 {ratio} 0.9-2.4 [facility] Serum or plasma calcium shagufta urement (mass/volume)Ordered By: Faustina Garrison on 08-15-2023 Calcium [Mass/Vol] 9.3 mg/dL 8.5-10.1 [facility] Serum or plasma creatinine m easurement (mass/volume)Ordered By: Faustina Garrison on 08-15-2023 Creatinine [Mass/Vol] 1.11 mg/dL 0.70-1.[address] [facility] Comment on above: The validity of the calculated GFR & GFRAA in patients over 70 years has not been determined. Clinical correlation is essential. Serum or plasma urea nitroge n measurement (mass/volume)Ordered By: Faustina Garrison on 08-15-2023 Urea nitrogen [Mass/Vol] 20 mg/dL 7-18 [facility] Squamous epithelial cells de tection in urine sediment by light microscopyOrdered By: Faustina Garrison on 08-15-2023 Epithelial cells.squamous LM Ql (Urine sed) 0-5 SEEN /hpf 0-5 [facility] Thin prep Papanicolaou smear with manual screeningOrdered By: Faustina Garrison on 08-15-2023 Thin prep Papanicolaou smear with manual screening 29 U/L 15-37 [facility] Comment on above: Slight Hemolysis, Re sult may be falsely increased. Thin prep Papanicolaou smear with manual screening 8 5-15 [facility] Urine blood detectionOrdered By: Faustina Garrison on 08-15-2023 RBC Ql (U) Negative Negative [facility] RBC Ql (U) 0 SEEN /hpf 0-5 [facility] Urine clarityOrdered By: Natali Garrison on 08-15-2023 Clarity (U) Sl. Cloudy Clear [facility] Urine color determinationOrd ered By: Faustina Garrison on 08-15-2023 Color (U) Yellow Yellow [facility] Urine glucose detectionOrder ed By: Faustina Garrison on 08-15-2023 Glucose Ql (U) Normal mg/dl Normal [facility] Urine leukocyte esterase det ection by dipstickOrdered By: Faustina Garrison on 08-15-2023 Leukocyte esterase Test strip Ql (U) Negative Negative [facility] Urine pHOrdered By: Faustina bartlett on 08-15-2023 pH (U) 8.0 [pH] 5.0 - 8.0 [facility] Urine sediment bacteria coun t by microscopy (number/high power field)Ordered By: Faustina Garrison on 08-15-2023 Bacteria LM.HPF (Urine sed) [#/Area] 0 /[HPF] None Seen [facility] Urine specific gravity measu rementOrdered By: Faustina Garrison on 08-15-2023 Specific gravity (U) [Rel density] 1.010 1.002-1.030 [facility] Urobilinogen Auto test strip Ql (U)Ordered By: Faustina Garrison on 08-15-2023 Urobilinogen Ql (U) Normal mg/dl Normal [facility] Absolute lymphocyte countOrd ered By: Mariela Olson on 01-25-2023 Lymphocytes Auto (Unsp spec) [#/Vol] 2.09 10*3/uL 0.83-4.51 [facility] Basophil percentageOrdered B y: Mariela Olson on 01-25-2023 Basophils/100 WBC (Bld) 0.6 % 0-1 [facility] Chloride [Moles/Vol] 106 mmol/L 98-107 [facility] Eosinophils/100 WBC (Bld) 6.0 % 0-5 [facility] Glucose [Mass/Vol] 98 mg/dL 74-106 [facility] Neutrophils (Bld) [#/Vol] 3.6 10*3/uL 2.0-7.7 [facility] Neutrophils/100 WBC (Bld) 52.4 % 47-70 [facility] Potassium [Moles/Vol] 4.2 mmol/L 3.5-5.[address] [facility] Sodium [Moles/Vol] 138 mmol/L 136-145 [facility] WBC (Bld) [#/Vol] 6.9 10*3/uL 4.4-11.0 [facility] Blood erythrocytes count (nu mber/volume)Ordered By: Mariela Olson on 01-25-2023 RBC (Bld) [#/Vol] 4.64 10*6/uL 4.6-6.2 [facility] Blood hemoglobin measurement (mass/volume)Ordered By: Mariela Olson on 01-25-2023 Hemoglobin (Bld) [Mass/Vol] 14.2 g/dL 13.0-16.5 [facility] Blood lymphocytes/100 leukoc ytesOrdered By: Mariela Olson on 01-25-2023 Lymphocytes/100 WBC (Bld) 30.4 % 19-41 [facility] Blood monocytes/100 leukocyt esOrdered By: Mariela Olson on 01-25-2023 Monocytes/100 WBC (Bld) 10.3 % 0-10 [facility] Blood platelet mean volumeOr dered By: Mariela Olson on 01-25-2023 Platelet mean volume (Bld) [Entitic vol] 10.0 fL 6.2-12.0 [facility] Determination of erythrocyte mean corpuscular volume (MCV)Ordered By: Mariela Olson on 01-25-2023 MCV (RBC) [Entitic vol] 92.7 fL 80-94 [facility] Hematocrit Auto (Bld) [Volum e fraction]Ordered By: Mariela Olson on 01-25-2023 Hematocrit (Bld) [Volume fraction] 43.0 % 40-54 [facility] Laboratory - Chemistry and C hemistry - challengeOrdered By: Mariela Olson on 01-25-2023 CO2 [Moles/Vol] 28.0 mmol/L 21.0-32.0 [facility] Magnesium [Mass/Vol] 2.3 mg/dL 1.6-2.6 [facility] Urea nitrogen/Creatinine [Mass ratio] 17.7 mg/mg 10-20 [facility] Laboratory - Hematology and Cell countsOrdered By: Mariela Olson on 01-25-2023 Erythrocyte distribution width (RBC) [Entitic vol] 43.2 fL 35.1-43.9 [facility] Erythrocyte distribution width (RBC) [Ratio] 12.7 % 11.6-14.6 [facility] Immature granulocytes/100 WBC (Bld) 0.300 % 0.0-0.9 [facility] Comment on above: IG% - Immature Granu locytes (promyelocytes, myelocytes and metamyelocytes) > 1% indicates that a LEFT SHIFT is Present. MCH (RBC) [Entitic mass] 30.6 pg 27.0-32.0 [facility] Nucleated RBC/100 WBC (Bld) [Ratio] 0 % 0-5 [facility] MCHC Auto (RBC) [Mass/Vol]Or dered By: Mariela Olson on 01-25-2023 MCHC (RBC) [Mass/Vol] 33.0 g/dL 32-[address] [facility] No Panel InformationOrdered By: Mariela Olson on 01-25-2023 Estimated GFR (MDRD) Amer 72 mL/min >60 [facility] Comment on above: GFR Calc Estimated GFR (MDRD) Non-Af Amer 60 mL/min >60 [facility] Comment on above: Non- GFR Calc Platelets bldOrdered By: Hortencia Olson on 01-25-2023 Platelets (Bld) [#/Vol] 242 10*3/uL 150-450 [facility] Serum or plasma calcium shagufta urement (mass/volume)Ordered By: Mariela Olson on 01-25-2023 Calcium [Mass/Vol] 9.3 mg/dL 8.5-10.1 [facility] Serum or plasma creatinine m easurement (mass/volume)Ordered By: Mariela Olson on 01-25-2023 Creatinine [Mass/Vol] 1.24 mg/dL 0.70-1.[address] [facility] Comment on above: The validity of the calculated GFR & GFRAA in patients over 70 years has not been determined. Clinical correlation is essential. Serum or plasma urea nitroge n measurement (mass/volume)Ordered By: Mariela Olson on 01-25-2023 Urea nitrogen [Mass/Vol] 22 mg/dL 7 [facility] Thin prep Papanicolaou smear with manual screeningOrdered By: Mariela Olson on 01-25-2023 Thin prep Papanicolaou smear with manual screening 4 12-13 [facility] Vital Signs Date Time Vital Sign Value Performing Clinician Facility 01-14-2025 09:01-0400 Body height 170.18 cm Mariela Olson [facility] Work Phone: [facility] 01-14-2025 09:01-0400 Body mass index (BMI) [Ratio] 23.5 kg/m2 Mariela Shahram [employer] [facility] Work Phone: [facility] 01-14-2025 09:01-0400 Body weight 68.03 kg Mariela Olson [employer] Work Phone: [facility] 01-09-2025 15:28-0400 Body height 170.18 cm Mariela Shahram [employer] Work Phone: [facility] 01-09-2025 15:28-0400 Body mass index (BMI) [Ratio] 24.1 kg/m2 Mariela Shahram [employer] [facility] Work Phone: [facility] 01-09-2025 15:28-0400 Body temperature 98.4 [degF] Mariela Olson [employer]ESS[facility]C Work Phone: [facility] 01-09-2025 15:28-0400 Body weight 69.9 kg Mariela Olson [employer] Work Phone: [facility] 01-09-2025 15:28-0400 Diastolic blood pressure 74 mm[Hg] Mariela Shahram [employer]ESS[facility]C Work Phone: [facility] 01-09-2025 15:28-0400 Heart rate 62 /min Mariela Shahram [employer]ESS[facility]C Work Phone: [facility] 01-09-2025 15:28-0400 SaO2% (BldA) [Mass fraction] 97 % Mariela Shahram [employer] Work Phone: [facility] 01-09-2025 15:28-0400 Systolic blood pressure 146 mm[Hg] Mariela Shahram [employer]ESS[facility]C Work Phone: [facility] 12-05-2024 14:06-0400 Diastolic blood pressure 87 mm[Hg] Mariela Shahram [employer]ESS[facility]C Work Phone: [facility] 12-05-2024 14:06-0400 Heart rate 62 /min Mariela Shahram [employer]ESS[facility]C Work Phone: [facility] 12-05-2024 14:06-0400 Respiratory rate 14 /min Mariela Shahram [employer]C Work Phone: [facility] 12-05-2024 14:06-0400 SaO2% (BldA) [Mass fraction] 96 % Mariela Shahram [employer] [facility] Work Phone: [facility] 12-05-2024 14:06-0400 Systolic blood pressure 120 mm[Hg] Mariela Shahram [employer]ESS[facility]C Work Phone: [facility] 12-05-2024 08:22-0400 Body height 171.45 cm Mariela Shahram [employer]ESS[facility]C Work Phone: [facility] 12-05-2024 08:22-0400 Body mass index (BMI) [Ratio] 23.4 kg/m2 Mariela Shahram [employer]C Work Phone: [facility] 12-05-2024 08:22-0400 Body temperature 98 [degF] Mariela Shahram [employer]ESSOR[facility]C Work Phone: [facility] 12-05-2024 08:22-0400 Body weight 68.94 kg Mariela Shahram [employer]C Work Phone: [facility] 12-05-2024 08:22-0400 Diastolic blood pressure 82 mm[Hg] Mariela Shahram [employer]C Work Phone: [facility] 12-05-2024 08:22-0400 Heart rate 62 /min Mariela Shahram [employer]ESS[facility]C Work Phone: [facility] 12-05-2024 08:22-0400 Respiratory rate 13 /min Mariela Shahram [employer]C Work Phone: [facility] 12-05-2024 08:22-0400 SaO2% (BldA) [Mass fraction] 100 % Mariela Shahram [employer]C Work Phone: [facility] 12-05-2024 08:22-0400 Systolic blood pressure 185 mm[Hg] Mariela Shahram [employer]ESS[facility]C Work Phone: [facility] 11-28-2024 11:09-0400 Body mass index (BMI) [Ratio] 24 kg/m2 Mariela Shahram [employer]C Work Phone: [facility] 11-28-2024 11:09-0400 Body temperature 98.5 [degF] Mariela Shahram [employer]C Work Phone: [facility] 11-28-2024 11:09-0400 Body weight 70.76 kg Mariela Shahram [employer]ESS[facility]C Work Phone: [facility] 11-28-2024 11:09-0400 Diastolic blood pressure 76 mm[Hg] Mariela Shahram [employer]ESS[employer]C Work Phone: [facility] 11-28-2024 11:09-0400 Heart rate 74 /min Mariela Shahram [employer]C Work Phone: [facility] 11-28-2024 11:09-0400 Respiratory rate 16 /min Mariela Shahram [employer]ESS[facility]C Work Phone: [facility] 11-28-2024 11:09-0400 SaO2% (BldA) [Mass fraction] 100 % Mariela Shahram [employer]C Work Phone: [facility] 11-28-2024 11:09-0400 Systolic blood pressure 152 mm[Hg] Mariela Shahram [employer]C Work Phone: [facility] 11-20-2024 13:22-0400 Body temperature 98 [degF] Mariela Shahram [employer]C Work Phone: [facility] 11-20-2024 13:22-0400 Diastolic blood pressure 81 mm[Hg] Mariela Shahram [employer]C Work Phone: [facility] 11-20-2024 13:22-0400 Heart rate 86 /min Mariela Shahram [employer]C Work Phone: [facility] 11-20-2024 13:22-0400 Respiratory rate 18 /min Mariela Shahram [employer]ESS[facility]C Work Phone: [facility] 11-20-2024 13:22-0400 SaO2% (BldA) [Mass fraction] 95 % Mariela Shahram [employer]C Work Phone: [facility] 11-20-2024 13:22-0400 Systolic blood pressure 139 mm[Hg] Mariela Shahram [employer]ESSOR[facility]C Work Phone: [facility] 11-19-2024 12:37-0400 Body height 171.45 cm Mariela Shahram [employer]ESSOR[facility]C Work Phone: [facility] 11-19-2024 12:37-0400 Body weight 68.94 kg Mariela Shahram [employer]ESSOR[facility]C Work Phone: [facility] 11-19-2024 08:57-0400 Body mass index (BMI) [Ratio] 23.4 kg/m2 Mariela Shahram [employer]C Work Phone: [facility] 11-18-2024 15:02-0400 Heart rate 67 /min Mariela Olson [employer] ASSESSOR[facility]C Work Phone: [facility] 11-18-2024 15:02-0400 Respiratory rate 17 /min Mariela Olson [employer]C Work Phone: [facility] 11-18-2024 15:02-0400 SaO2% (BldA) [Mass fraction] 100 % Mariela Olson [employer]C Work Phone: [facility] 11-18-2024 13:14-0400 Diastolic blood pressure 86 mm[Hg] Mariela Olson [employer]ESS[facility]C Work Phone: [facility] 11-18-2024 13:14-0400 Systolic blood pressure 186 mm[Hg] Mariela Olson [employer]C Work Phone: [facility] 11-18-2024 09:56-0400 Body height 170.18 cm Mariela Olson [employer]ESS[employer]C Work Phone: [facility] 11-18-2024 09:56-0400 Body mass index (BMI) [Ratio] 23.9 kg/m2 Mariela Olson [employer]C Work Phone: [facility] 11-18-2024 09:56-0400 Body temperature 97.8 [degF] Mariela Olson [employer]C Work Phone: [facility] 11-18-2024 09:56-0400 Body weight 69.39 kg Mariela Olson [employer]ESSOR[facility]C Work Phone: [facility] 11-07-2024 15:00-0400 Body temperature 98.1 [degF] Mariela Olson [employer]ESS[facility]C Work Phone: [facility] 11-07-2024 15:00-0400 Diastolic blood pressure 69 mm[Hg] Mariela Olson [employer]ESS[facility]C Work Phone: [facility] 11-07-2024 15:00-0400 Heart rate 79 /min Mariela Shahram [employer]ESSOR[facility]C Work Phone: [facility] 11-07-2024 15:00-0400 SaO2% (BldA) [Mass fraction] 99 % Mariela Shahram [employer]C Work Phone: [facility] 11-07-2024 15:00-0400 Systolic blood pressure 149 mm[Hg] Mariela Shahram [employer]ESS[facility]C Work Phone: [facility] 11-07-2024 10:48-0400 Diastolic blood pressure 66 mm[Hg] Mariela Shahram [employer]ESS[employer]C Work Phone: [facility] 11-07-2024 10:48-0400 Heart rate 88 /min Mariela Shahram [employer]C Work Phone: [facility] 11-07-2024 10:48-0400 Systolic blood pressure 153 mm[Hg] Mariela Shahram [employer]ESS[employer]C Work Phone: [facility] 11-07-2024 08:22-0400 Body temperature 98 [degF] Mariela Shahram [employer]ESS[facility]C Work Phone: [facility] 11-07-2024 08:22-0400 Respiratory rate 16 /min Mariela Shahram [employer]C Work Phone: [facility] 11-07-2024 07:11-0400 SaO2% (BldA) [Mass fraction] 98 % Mariela Shahram [employer]C Work Phone: [facility] 11-07-2024 03:38-0400 Body height 170.18 cm Mariela Shahram [employer]C Work Phone: [facility] 11-07-2024 03:38-0400 Body mass index (BMI) [Ratio] 25.1 kg/m2 Mariela Shahram [employer]C Work Phone: [facility] 11-07-2024 03:38-0400 Body weight 72.8 kg Mariela Shahram [employer]ESS[employer]C Work Phone: [facility] 11-06-2024 01:00-0400 Diastolic blood pressure 71 mm[Hg] Marielabruce Olson [employer] ASSESSOR[facility]C Work Phone: [facility] 11-06-2024 01:00-0400 Heart rate 77 /min Marielabruce Olson [employer]C Work Phone: [facility] 11-06-2024 01:00-0400 Respiratory rate 18 /min Marielabruce Olson [employer]ESS[employer]C Work Phone: [facility] 11-06-2024 01:00-0400 SaO2% (BldA) [Mass fraction] 99 % Mariela Olson [employer]ESS[facility]C Work Phone: [facility] 11-06-2024 01:00-0400 Systolic blood pressure 169 mm[Hg] Mariela Cifuentesgar [employer] ASSESSOR[facility]C Work Phone: [facility] 11-06-2024 00:36-0400 Body temperature 98.3 [degF] Mariela Shahram [employer] ASSESSOR[facility]C Work Phone: [facility] 11-05-2024 22:21-0400 Body height 170.18 cm Mariela Olson [employer]ESS[facility]C Work Phone: [facility] 11-05-2024 22:21-0400 Body mass index (BMI) [Ratio] 25.7 kg/m2 Mariela Shahram [employer]C Work Phone: [facility] 11-05-2024 22:21-0400 Body weight 74.34 kg Mariela Shahram [employer]ESSOR[facility]C Work Phone: [facility] 10-31-2024 11:16-0400 Body mass index (BMI) [Ratio] 25.9 kg/m2 Mariela Shahram [employer]C Work Phone: [facility] 10-31-2024 11:16-0400 Body temperature 98.4 [degF] Mariela Shahram [employer]C Work Phone: [facility] 10-31-2024 11:16-0400 Body weight 74.89 kg Mariela Shahram [employer]C Work Phone: [facility] 10-31-2024 11:16-0400 Diastolic blood pressure 83 mm[Hg] Mariela Shahram [employer]ESSOR[facility]C Work Phone: [facility] 10-31-2024 11:16-0400 Heart rate 71 /min Mariela Shahram [employer]C Work Phone: [facility] 10-31-2024 11:16-0400 Respiratory rate 18 /min Mariela Shahram [employer] ASSESSOR[facility]C Work Phone: [facility] 10-31-2024 11:16-0400 SaO2% (BldA) [Mass fraction] 98 % Mariela Shahram [employer]C Work Phone: [facility] 10-31-2024 11:16-0400 Systolic blood pressure 175 mm[Hg] Mariela Shahram [employer]C Work Phone: [facility] 10-24-2024 20:51-0400 Body temperature 98 [degF] Mariela Shahram [employer]ESS[facility]C Work Phone: [facility] 10-24-2024 20:51-0400 Diastolic blood pressure 73 mm[Hg] Mariela Shahram [employer]ESS[facility]C Work Phone: [facility] 10-24-2024 20:51-0400 Heart rate 72 /min Mariela Shahram [employer]C Work Phone: [facility] 10-24-2024 20:51-0400 Respiratory rate 18 /min Mariela Shahram [employer]ESS[facility]C Work Phone: [facility] 10-24-2024 20:51-0400 SaO2% (BldA) [Mass fraction] 98 % Mariela Shahram [employer]C Work Phone: [facility] 10-24-2024 20:51-0400 Systolic blood pressure 126 mm[Hg] Mariela Shahram [employer]ESS[facility]C Work Phone: [facility] 10-24-2024 17:36-0400 Body height 170 cm Mariela Shahram [employer]ESS[facility]C Work Phone: [facility] 10-24-2024 17:36-0400 Body mass index (BMI) [Ratio] 26.2 kg/m2 Mariela Shahram [employer]C Work Phone: [facility] 10-24-2024 17:36-0400 Body weight 75.79 kg Mariela Shahram [employer]C Work Phone: [facility] 10-17-2024 14:15-0400 Body mass index (BMI) [Ratio] 26.2 kg/m2 Mariela Shahram [employer]C Work Phone: [facility] 10-17-2024 14:15-0400 Body weight 75.74 kg Mariela Shahram [employer]ESS[facility]C Work Phone: [facility] 10-17-2024 14:15-0400 Diastolic blood pressure 87 mm[Hg] Mariela Shahram [employer]C Work Phone: [facility] 10-17-2024 14:15-0400 Heart rate 60 /min Mariela Shahram [employer]C Work Phone: [facility] 10-17-2024 14:15-0400 Respiratory rate 16 /min Mariela Shahram [employer]C Work Phone: [facility] 10-17-2024 14:15-0400 Systolic blood pressure 148 mm[Hg] Mariela Shahram [employer]ESSOR[facility]C Work Phone: [facility] 09-07-2024 12:53-0500 Diastolic blood pressure 71 mm[Hg] Darrel Pringle MD [facility] 09-07-2024 12:53-0500 Systolic blood pressure 159 mm[Hg] Darrel Pringle MD [facility] 08-08-2024 09:55-0500 Body mass index (BMI) [Ratio] 26.9 kg/m2 Mariela Shahram [employer] [facility]ESS[facility]C Work Phone: [facility] 08-08-2024 09:55-0500 Body temperature 98.5 [degF] Mariela Shahram [employer]C Work Phone: [facility] 08-08-2024 09:55-0500 Body weight 78.18 kg Mariela Shahram [employer] [facility]C Work Phone: [facility] 08-08-2024 09:55-0500 Diastolic blood pressure 90 mm[Hg] Mariela Shahram [employer] [facility]ESS[facility]C Work Phone: [facility] 08-08-2024 09:55-0500 Heart rate 81 /min Mariela Shahram [employer] [facility]C Work Phone: [facility] 08-08-2024 09:55-0500 Respiratory rate 18 /min Mariela Shahram [employer]C Work Phone: [facility] 08-08-2024 09:55-0500 SaO2% (BldA) [Mass fraction] 99 % Mariela Shahram [employer] [facility]C Work Phone: [facility] 08-08-2024 09:55-0500 Systolic blood pressure 196 mm[Hg] Mariela Shahram [employer] [facility]C Work Phone: [facility] 07-18-2024 09:20-0500 Body mass index (BMI) [Ratio] 26.5 kg/m2 Mariela Shahram [employer]C Work Phone: [facility] 07-18-2024 09:20-0500 Body temperature 97.8 [degF] Mariela Shahram [employer]ESSOR[facility]C Work Phone: [facility] 07-18-2024 09:20-0500 Body weight 76.91 kg Mariela Shahram [employer]C Work Phone: [facility] 07-18-2024 09:20-0500 Diastolic blood pressure 88 mm[Hg] Mariela Shahram [employer]ESS[facility]C Work Phone: [facility] 07-18-2024 09:20-0500 Heart rate 71 /min Mariela Shahram [employer] [facility]ESS[facility]C Work Phone: [facility] 07-18-2024 09:20-0500 Respiratory rate 16 /min Marielabruce Olson [facility] ASSESSOR[facility]C Work Phone: [facility] 07-18-2024 09:20-0500 SaO2% (BldA) [Mass fraction] 97 % Marielabruce Olson [facility]C Work Phone: [facility] 07-18-2024 09:20-0500 Systolic blood pressure 193 mm[Hg] Mariela Shahram [employer] ASSESSOR[facility]C Work Phone: [facility] 07-04-2024 14:18-0500 Body mass index (BMI) [Ratio] 26.4 kg/m2 Mariela Shahram [facility]ESS[facility]C Work Phone: [facility] 07-04-2024 14:18-0500 Body temperature 98.2 [degF] Mariela Cifuentesgar [employer] ASSESSOR[facility]C Work Phone: [facility] 07-04-2024 14:18-0500 Body weight 76.43 kg Mariela Olson [employer] ASSESSOR[facility]C Work Phone: [facility] 07-04-2024 14:18-0500 Diastolic blood pressure 75 mm[Hg] Mariela Cifuentesgar [employer] ASSESSOR[facility]C Work Phone: [facility] 07-04-2024 14:18-0500 Heart rate 58 /min Mariela Shahram [employer] ASSESSOR[facility]C Work Phone: [facility] 07-04-2024 14:18-0500 Respiratory rate 18 /min Mariela Cifuentesgar [employer] ASSESSOR[facility]C Work Phone: [facility] 07-04-2024 14:18-0500 SaO2% (BldA) [Mass fraction] 100 % Mariela Shahram [facility] ASSESSOR[facility]C Work Phone: [facility] 07-04-2024 14:18-0500 Systolic blood pressure 165 mm[Hg] Mariela Cifuentesgar [employer] ASSESSOR[facility]C Work Phone: [facility] 12-11-2023 08:05-0400 Body temperature 97.9 [degF] Dr. Neville Islas Work Phone: [facility] 12-11-2023 08:05-0400 Diastolic blood pressure 70 mm[Hg] Dr. Neville Islas Work Phone: [facility] 12-11-2023 08:05-0400 Heart rate 59 /min Dr. Neville Islas Work Phone: [facility] 12-11-2023 08:05-0400 Respiratory rate 13 /min Dr. Neville Islas Work Phone: [facility] 12-11-2023 08:05-0400 SaO2% (BldA) [Mass fraction] 95 % Dr. Neville Islas Work Phone: [facility] 12-11-2023 08:05-0400 Systolic blood pressure 151 mm[Hg] Dr. Neville Islas Work Phone: [facility] 12-11-2023 02:39-0400 Body height 172.[address] Neville Islas Work Phone: [facility] 12-11-2023 02:39-0400 Body mass index (BMI) [Ratio] 29 kg/m2 Dr. Neville Islas Work Phone: [facility] 12-11-2023 02:39-0400 Body weight 86.[address] Neville Islas Work Phone: [facility] 08-16-2023 16:10-0500 Body temperature 97.7 [degF] Dr. Neville Islas Work Phone: [facility] 08-16-2023 16:10-0500 Diastolic blood pressure 69 mm[Hg] Dr. Neville Islas Work Phone: [facility] 08-16-2023 16:10-0500 Heart rate 64 /min Dr. Neville Islas Work Phone: [facility] 08-16-2023 16:10-0500 Respiratory rate 18 /min Dr. Neville Islas Work Phone: [facility] 08-16-2023 16:10-0500 SaO2% (BldA) [Mass fraction] 100 % Dr. Neville Islas Work Phone: [facility] 08-16-2023 16:10-0500 Systolic blood pressure 154 mm[Hg] Dr. Neville Islas Work Phone: [facility] 08-16-2023 13:54-0500 Body weight 78.[address] Neville Islas Work Phone: [facility] 08-15-2023 22:26-0500 Body mass index (BMI) [Ratio] 25.5 kg/m2 Dr. Neville Islas Work Phone: [facility] 08-15-2023 21:10-0500 Diastolic blood pressure 80 mm[Hg] [facility] 08-15-2023 21:10-0500 Heart rate 71 /min [facility] 08-15-2023 21:10-0500 Respiratory rate 18 /min [facility] 08-15-2023 21:10-0500 SaO2% (BldA) [Mass fraction] 98 % [facility] 08-15-2023 21:10-0500 Systolic blood pressure 187 mm[Hg] [facility] 08-15-2023 14:37-0500 Body height 172.72 cm [facility] 08-15-2023 14:37-0500 Body mass index (BMI) [Ratio] 27.3 kg/m2 [facility] 08-15-2023 14:37-0500 Body temperature 95.5 [degF] [facility] 08-15-2023 14:37-0500 Body weight 81.6 kg [facility] Encounters Encounter Date Encounter Type Care Provider Facility Start: 02-07-2025 End: 02-07-[address] [facility] Start: 01-18-2025 Encounter for preprocedural cardiovascular examination Adrian [facility] Start: 01-14-2025 End: 01-14-2025 ambulatory Mariela Shahram [employer] ASSESSOR-C Work Phone: [facility] Work Phone: Start: 01-14-2025 End: 01-14-2025 Dr. Adrian Flores MD -[facility]Special Procedures Work Phone: Start: 01-14-2025 End: 01-14-2025 ambulatory Adrian Flores Facility:[facility] Start: 01-11-[address] [facility] Start: 01-09-2025 End: 01-09-2025 Dr. Brenda Araujo MD -[facility] Work Phone: Start: 01-09-2025 End: 01-09-2025 ambulatory Mariela Olson CITY ASSESSOR-C Work Phone: [facility] Work Phone: Start: 01-06-2025 ambulatory Adrian Flores Facility:[facility] Start: 01-06-2025 Dr. Adrian Flores MD -[facility] Start: 12-14-2024 End: 12-14-2024 ambulatory Mariela Shahram CITY ASSESSOR-C Work Phone: [facility] Work Phone: Start: 12-14-2024 End: 12-14-2024 Malinda Webster CITY ASSESSOR-C -Laboratory Work Phone: Start: 12-14-2024 End: 12-14-2024 ambulatory Malinda Webster CITY ASSESSOR Facility:[facility] Start: 12-11-2024 Encounter for preprocedural laboratory examination Brenda Araujo [facility] Start: 12-05-2024 End: 12-05-2024 ambulatory Mariela Olson [employer] ASSESSOR-C Work Phone: [facility] Work Phone: Start: 12-05-2024 End: 12-05-[address] Brenda Araujo MD -[facility] Work Phone: Start: 12-05-2024 End: 12-05-2024 Dr. Brenda GarciaCat Scan, [facility] Work Phone: Start: 12-04-2024 End: 12-04-2024 Patient encounter procedure Ari Silvestre [facility] Work Phone: Start: 12-04-2024 End: 12-04-2024 Arijerry Silvestre [facility] Work Phone: Start: 12-04-2024 End: 12-05-2024 ambulatory [facility] Facility:[facility] Start: 11-30-2024 End: 11-30-2024 ambulatory Mariela Olson [employer] ASSESSOR-C Work Phone: [facility] Work Phone: Start: 11-30-2024 End: 11-30-[address] Brenda GarciaCat Scan, [facility] Work Phone: Start: 11-30-2024 End: 11-30-2024 Dr. Brenda Araujo MD -Cat Scan, [facility] Work Phone: Start: 11-30-2024 End: 11-30-2024 ambulatory [facility] Facility:[facility] Start: 11-28-2024 ambulatory Adrian Flores Facility:[facility] Start: 11-28-2024 Non-patient / Non-visit Dr. Norberto DAVIS -[facility] Start: 11-28-2024 End: 11-28-2024 Patient encounter procedure Malinda Webster CITY ASSESSOR-C -Cardiovascular Services Work Phone: Start: 11-28-2024 End: 11-28-2024 Dr. Adrian Flores MD -[facility] Start: 11-28-2024 End: 11-28-[address] Brenda Araujo MD -[facility] Work Phone: Start: 11-28-2024 End: 11-28-2024 Dr. Brenda Araujo MD -[facility] Work Phone: Start: 11-28-2024 End: 11-28-2024 ambulatory Mariela Olson [place] [place]: 11-28-2024 End: 11-28-2024 ambulatory Malinda Webster NP Facility:[facility] Start: 11-20-2024 Non-patient / Non-visit Dr. Kalen Jang [facility] Work Phone: Start: 11-20-2024 Dr. Neville singh [facility] Work Phone: Start: 11-19-2024 Non-patient / Non-visit Dr. Kalen Jang [facility] Work Phone: Start: 11-19-2024 Dr. Neville singh DO [facility] Work Phone: Start: 11-19-2024 Non-patient / Non-visit Ari Sage nd DO -[facility] Start: 11-19-2024 Ari Silvestre DO -[facility] Start: 11-18-2024 Non-patient / Non-visit Dr. Marybel Schrader MD -[facility] Work Phone: Start: 11-18-2024 ambulatory Kelvin Schrader Fac ility:[facility] Start: 11-18-2024 End: 11-20-2024 Evaluation and management of inpatient Dr. Kelvin Schrader MD -[facility] Work Phone: Start: 11-18-2024 End: 11-20-2024 Dr. Neville Jagn DO [facility] Work Phone: Start: 11-09-2024 ambulatory Darrel Pringle [facility] [place] Start: 11-09-2024 Office outpatient vi sit 25 minutes Darrel Pringle [facility] Start: 11-07-2024 Non-patient / Non-visit Dr. Stevie francis [facility] Work Phone: Start: 11-07-2024 Dr. Stevie MOREJONWo [facility]ard [facility] Work Phone: Start: 11-07-2024 End: 11-07-2024 ambulatory Adrian Flores Facility:[facility] Start: 11-07-2024 End: 11-07-2024 Non-patient / Non-visit Dr. Adrian [facility] Work Phone: Start: 11-07-2024 End: 11-07-2024 Dr. [facility] Work Phone: Start: 11-06-2024 Non-patient / Non-visit Ari Sage nd DO -[facility] Start: 11-06-2024 Ari Silvestre DO -[facility] Start: 11-06-2024 ambulatory [facility] Facility:[facility] Start: 11-06-2024 End: 11-07-2024 Evaluation and management of inpatient Dr. Darrel Carpenter DO -[facility] Work Phone: Start: 11-06-2024 End: 11-07-2024 Dr. [facility] Work Phone: Start: 11-02-2024 End: 01-12-2025 Telephone encounter Papi Hernandez MD Work Phone: Hematology/Oncology Comment on above: Patient Question Start: 10-31-2024 End: 10-31-[address] [facility] Work Phone: Start: 10-31-2024 End: 10-31-2024 Dr[facility] Work Phone: Start: 10-31-2024 End: 10-31-2024 ambulatory [facility] [place] Start: 10-24-2024 End: 10-24-2024 Dr. Jerry Hightower DO -Emergency Department Work Phone: Start: 10-24-2024 End: 10-24-2024 Emergency department patient visit Mariela Shahram CITY ASSESSOR-C Work Phone: -Emergency Department Work Phone: Start: 10-24-2024 End: 10-24-[address] [facility] Start: 10-24-[address] Papi Hernandez MD -[facility] Start: 10-24-2024 End: 10-24-2024 Dr. Papi Hernandez MD -[facility] Start: 10-24-2024 End: 10-24-2024 [facility] Work Phone: [facility] Work Phone: Start: 10-24-2024 End: 10-24-2024 ambulatory [facility] Facility:[facility] Start: 10-17-2024 End: 10-17-2024 ambulatory [facility] CITY ASSESSOR-C Work Phone: [facility] Work Phone: Start: 10-17-2024 End: 10-17-2024 Patient encounter procedure Malinda Webster CITY ASSESSOR-C -Laboratory Work Phone: Start: 10-17-2024 End: 10-17-2024 Malinda Webster CITY ASSESSOR-C -Laboratory Work Phone: Start: 10-17-2024 End: 10-17-2024 Patient encounter procedure Malinda Webster CITY ASSESSOR-C -[facility] Work Phone: Start: 10-17-2024 End: 10-17-2024 Malinda Webster CITY ASSESSOR-C -[facility] Work Phone: Start: 10-17-2024 End: 10-17-2024 ambulatory [facility] [place] [place] Start: 10-17-2024 End: 10-17-2024 ambulatory [facility] Facility:[facility] Start: 09-07-2024 End: 09-07-2024 Darrel Pringle Work Phone: [facility] [place] Start: 09-07-2024 ambulatory Darrel Pringle [facility] [place] Start: 09-05-2024 End: 09-05-2024 Patient encounter procedure Mariela Olson CITY ASSESSOR-C -Laboratory, [facility] Start: 09-05-2024 End: 09-05-2024 Mariela Olson CITY ASSESSOR-C -Laboratory, [facility] Carn[facility] Start: 09-05-2024 End: 09-05-2024 ambulatory Mariela Shahram Facility:[facility] Start: 08-08-2024 End: 08-08-[address] Papi Hernandez MD -[facility] Work Phone: Start: 08-08-2024 End: 08-08-2024 Dr. Papi Hernandez MD -[facility] Work Phone: Start: 08-08-2024 End: 08-08-2024 ambulatory Mariela Olson [place] [place] Start: 07-18-2024 End: 07-18-2024 Patient encounter procedure Selam Craig NP-C -[facility] Work Phone: Start: 07-18-2024 End: 07-18-2024 ambulatory Mariela Olson Facility:[facility] Start: 07-13-2024 End: 07-13-2024 Darrel Pringle Work Phone: [facility] Start: 07-13-2024 ambulatory Darrel Pringle [facility] [place] Start: 07-04-2024 End: 07-04-[address] Papi Hernandez MD -[facility] Work Phone: Start: 07-04-2024 End: 07-04-2024 ambulatory Marielabruce Olson Facility:[facility] Start: 07-04-2024 Encounter for other [facility]procedural [facility] Start: 06-25-2024 Encounter for other preprocedural examination Du Thomas [facility] Start: 06-22-2024 ambulatory Du Thomas Facility: [facility] Start: 06-22-2024 End: 06-22-2024 ambulatory Du Thomas Facility:[facility] Start: 06-20-2024 End: 06-20-2024 ambulatory Du Thomas Facility:[facility] Start: 06-18-2024 ambulatory Mariela Shahram [facility] Start: 06-12-2024 End: 06-12-2024 ambulatory Mariela Shahram Facility:[facility] Start: 06-08-2024 End: 06-10-2024 Evaluation and management of inpatient Lucy Polanco Facility:[facility] Start: 06-08-2024 ambulatory Lucy Polanco Facility:[facility] Start: 06-07-2024 End: 06-07-2024 Emergency department patient visit Jerry Hightower Facility:[facility] Start: 06-07-2024 End: 06-08-2024 ambulatory Mariela Shahram Facility:[facility] Start: 05-31-2024 End: 05-31-2024 ambulatory Mariela Olson Facility:[facility] Start: 05-25-2024 End: 05-25-2024 Darrel Pringle Work Phone: [facility] Start: 05-25-[address] [facility] Start: 05-16-2024 End: 05-16-2024 ambulatory Mariela Olson Facility:[facility] Start: 05-10-2024 End: 05-10-2024 ambulatory Du Thomas Facility:[facility] Start: 05-07-2024 End: 05-07-2024 ambulatory Mariela Olson Facility:[facility] Start: 04-27-2024 ambulatory Du Thomas Facility: [facility] Start: 04-27-2024 End: 05-01-2024 Evaluation and management of inpatient Du Thomas Facility:[facility] Start: 04-27-2024 ambulatory Du Thomas Facility: [facility] Start: 04-25-2024 Encounter for preprocedural cardiovascular examination Adriankaitlin Flores [facility] Start: 04-25-2024 End: 04-25-2024 ambulatory Mariela Olson Facility:[facility] Start: 04-23-2024 Patient encounter status Mariela Olson CITY ASSESSOR-C Work Phone: [facility] Comment on above: Right hemicolectomy 04/27/2024 Start: 04-20-2024 End: 04-20-2024 ambulatory Mariela Olson Facility:[facility] Start: 04-13-2024 ambulatory Ari Silvestre Facility :[facility] Start: 04-13-2024 ambulatory Len Staton Facility:[facility] Start: 04-12-2024 End: 04-12-2024 ambulatory Mariela Olson Facility:[facility] Start: 04-12-2024 ambulatory Darrel Carpenter Facili ty:[facility] Start: 04-12-2024 End: 04-15-2024 Evaluation and management of inpatient Darrel Carpenter Facility:[facility] Start: 04-11-2024 End: 04-11-2024 ambulatory Mariela Olson Facility:[facility] Start: 03-30-2024 End: 03-30-2024 Darrel Pringle Work Phone: [facility] Start: 03-30-[address] [facility] Start: 02-15-2024 End: 02-15-2024 ambulatory Lisandragary Lazcano [place] [place] Start: 02-10-2024 End: 02-10-2024 Darrel Pringle Work Phone: [facility] Start: 02-03-2024 End: 02-03-2024 ambulatory Neville Islas Facility:[facility] Start: 12-21-2023 End: 12-21-2023 Darrel Pringle Work Phone: [facility] Start: 12-11-2023 End: 12-11-2023 Emergency department patient visit Dr. Neville Islas Work Phone: [facility]-Emergency Department Work Phone: Start: 10-26-2023 End: 10-26-2023 Darrel Pringle Work Phone: [facility] Start: 08-24-2023 End: 08-24-2023 Darrel Pringle Work Phone: [facility] Start: 08-22-2023 End: 08-22-[address] [facility] Start: 08-16-2023 Non-patient / Non-visit Dr. Kalen Islas Work Phone: [facility] [facility] Work Phone: Start: 08-16-2023 Non-patient / Non-visit Dr. Kalen Islas Work Phone: [facility] Start: 08-16-2023 Non-patient / Non-visit Dr. Kalen Islas Work Phone: [facility] Start: 08-15-2023 End: 08-15-2023 Non-patient / Non-visit Dr. Neville Islas Work Phone: [facility] Work Phone: Start: 08-15-2023 End: 08-16-2023 Evaluation and management of inpatient [facility]Pro[facility] Work Phone: Start: 08-15-2023 Non-patient / Non-visit Dr. Kalen Islas Work Phone: [facility] Work Phone: Start: 06-29-2023 End: 06-29-2023 Darrel Pringle Work Phone: [facility] Start: 05-11-2023 End: 05-11-2023 Darrel Pringle Work Phone: [facility] Start: 03-30-2023 End: 03-30-2023 Darrel Pringle Work Phone: [facility] Start: 02-23-2023 End: 02-23-2023 Darrel Pringle Work Phone: [facility] Start: 01-25-2023 End: 01-25-2023 ambulatory [facility] Work Phone: Start: 01-25-2023 End: 01-25-2023 Patient encounter procedure [facility] Start: 01-19-2023 End: 01-19-2023 Darrel Pringle Work Phone: [facility] Start: 01-05-2023 End: 01-05-2023 Darrel Pringle Work Phone: [facility] Start: 12-08-2022 End: 12-08-2022 Darrel Pringle Work Phone: [facility] Start: 11-03-2022 End: 11-03-2022 Darrel Pringle Work Phone: [facility] Start: 09-29-2022 End: 09-29-2022 Darrel Pringle Work Phone: [facility] Start: 09-01-2022 End: 09-01-2022 Office outpatient new 45 minutes Darrel Pringle Work Phone: [facility] Start: 02-22-2022 Telephone encounter Beata Shin i, MD Work Phone: Radiology Comment on above: Patient Question Start: 07-18-2019 Patient encounter status Beata Herrera MD Work Phone: [facility] Work Phone: Procedures Date Procedure Procedure Detail Performing Clinician Start: 01-11-2025 Computerized ophthalmic imaging retina Darrel Pringle Start: 01-11-2025 Eylea 1mg Pre-filled Syringe Darrel howard Start: 01-11-2025 Intravitreal njx pharmacologic agt spx Darrel Pringle Start: 01-08-2025 Blood count smear mcrscp w/mnl difrntl wbc count Mariela Olson CITY ASSESSOR-C Work Phone: Start: 01-08-2025 Mean corpuscular hemoglobin concentration determination Mariela Olson CITY ASSESSOR-C Work Phone: Start: 01-08-2025 Nucleated red blood cell count procedure Mariela Olson CITY ASSESSOR-C Work Phone: Start: 01-08-2025 Platelet mean volume determination Mariela Olson CITY ASSESSOR-C Work Phone: Start: 12-14-2024 X-ray of chest, PA and lateral views Mariela Olson CITY ASSESSOR-C Work Phone: Start: 12-14-2024 Blood count smear mcrscp w/mnl difrntl wbc count Marielabruce Olson CITY ASSESSOR-C Work Phone: Start: 12-14-2024 Mean corpuscular hemoglobin concentration determination Mariela Olson CITY ASSESSOR-C Work Phone: Start: 12-14-2024 Nucleated red blood cell count procedure Mariela Olson CITY ASSESSOR-C Work Phone: Start: 12-14-2024 Platelet mean volume determination Mariela Olson CITY ASSESSOR-C Work Phone: Start: 12-14-2024 Total iron binding capacity measurement Mariela Olson CITY ASSESSOR-C Work Phone: Start: 12-05-2024 Biopsy/Inj or Needle Placement Mariela burrell CITY ASSESSOR-C Work Phone: Start: 12-05-2024 Mariela Olson CITY ASSESSOR-C Work Phone: Start: 12-05-2024 Blood count smear mcrscp w/mnl difrntl wbc count Mariela Olson CITY ASSESSOR-C Work Phone: Start: 12-05-2024 Calculation of international normalized ratio Mariela Olson CITY ASSESSOR-C Work Phone: Start: 12-05-2024 Mean corpuscular hemoglobin concentration determination Mariela Olson CITY ASSESSOR-C Work Phone: Start: 12-05-2024 Nucleated red blood cell count procedure Mariela Olson CITY ASSESSOR-C Work Phone: Start: 12-05-2024 Platelet mean volume determination Mariela Olson CITY ASSESSOR-C Work Phone: Start: 11-30-2024 CT of thorax with contrast Mariela Olson CITY ASSESSOR-C Work Phone: Start: 11-20-2024 Blood count smear mcrscp w/mnl difrntl wbc count Mariela Olson CITY ASSESSOR-C Work Phone: Start: 11-20-2024 Mean corpuscular hemoglobin concentration determination Mariela Olson CITY ASSESSOR-C Work Phone: Start: 11-20-2024 Nucleated red blood cell count procedure Mariela Olson CITY ASSESSOR-C Work Phone: Start: 11-20-2024 Platelet mean volume determination Mariela Olson CITY ASSESSOR-C Work Phone: Start: 11-19-2024 Colonoscopy Mariela Olson CITY ASSESSOR-C Work Phone: Start: 11-19-2024 Estimated creatinine clearance Mariela burrell CITY ASSESSOR-C Work Phone: Start: 11-18-2024 Computed tomography of abdomen and pelvis with intravenous contrast Mariela Olson CITY ASSESSOR-C Work Phone: Start: 11-09-2024 Computerized ophthalmic imaging retina Darrel Pringle Start: 11-09-2024 Eylea Free Drug Darrel Pringle Start: 11-09-2024 Intravitreal njx pharmacologic agt spx Darrel Pringle Start: 11-07-2024 Blood count smear mcrscp w/mnl difrntl wbc count Mariela Olson [employer] ASSESSOR-C Work Phone: Start: 11-07-2024 Estimated creatinine clearance Mariela burrell CITY ASSESSOR-C Work Phone: Start: 11-07-2024 Mean corpuscular hemoglobin concentration determination Mariela Olson CITY ASSESSOR-C Work Phone: Start: 11-07-2024 Nucleated red blood cell count procedure Mariela Olson CITY ASSESSOR-C Work Phone: Start: 11-07-2024 Platelet mean volume determination Mariela Olson [employer] ASSESSOR-C Work Phone: Start: 11-06-2024 Flexible fiberoptic sigmoidoscopy Mariela Olson [employer] ASSESSOR-C Work Phone: Start: 11-06-2024 Clostridium difficile detection Mariela cruz CITY ASSESSOR-C Work Phone: Start: 11-06-2024 Lactoferrin measurement Mariela Olson [facility] ASSESSOR- C Work Phone: Start: 11-06-2024 Nucleic acid assay Mariela Cifuentesgar CITY ASSESSOR-C Work Phone: Start: 11-06-2024 Ova OR parasites identification Mariela gamezar CITY ASSESSOR-C Work Phone: Start: 11-06-2024 Ova&parasites direct smears concentration & id Mariela Olson [employer] ASSESSOR-C Work Phone: Start: 11-06-2024 Iadna-dna/rna gi pthgn multiplex probe tq 6-11 Mariela Cifuentesgar CITY ASSESSOR-C Work Phone: Start: 11-06-2024 Osmolality measurement, serum Mariela Schwartz ar CITY ASSESSOR-C Work Phone: Start: 11-06-2024 Serum inorganic phosphate measurement Mariela Cifuentesgar CITY ASSESSOR-C Work Phone: Start: 11-06-2024 Total iron binding capacity measurement Mariela Cifuentesgar CITY ASSESSOR-C Work Phone: Start: 11-05-2024 Computed tomography of abdomen and pelvis with contrast Mariela Olson [employer] ASSESSOR-C Work Phone: Start: 11-05-2024 Assay of lactate Mariela Olson [employer] ASSESSOR-C Work Phone: Start: 11-05-2024 Calculation of international normalized ratio Mariela Cifuentesgar CITY ASSESSOR-C Work Phone: Start: 11-05-2024 Measurement of occult blood in stool specimen using immunoassay Mariela Olson [employer] ASSESSOR-C Work Phone: Start: 10-24-2024 Urine microscopy: red cells Mariela Olson CITY ASSESSOR-C Work Phone: Start: 10-24-2024 Urnls dip stick/tablet reagent auto microscopy Mariela Shahram CITY ASSESSOR-C Work Phone: Start: 10-24-2024 Blood count smear mcrscp w/mnl difrntl wbc count Mariela Olson [employer] ASSESSOR-C Work Phone: Start: 10-24-2024 Estimated creatinine clearance Mariela burrell CITY ASSESSOR-C Work Phone: Start: 10-24-2024 Mean corpuscular hemoglobin concentration determination Mariela Olson [employer] ASSESSOR-C Work Phone: Start: 10-24-2024 Nucleated red blood cell count procedure Mariela Olson [employer] ASSESSOR-C Work Phone: Start: 10-24-2024 Platelet mean volume determination Mariela Olson [employer] ASSESSOR-C Work Phone: Start: 10-24-2024 Triacylglycerol lipase measurement Mariela Olson [employer] ASSESSOR-C Work Phone: Start: 10-24-2024 Ultrasound of scrotum with Doppler and color flow imaging Mariela Olson CITY ASSESSOR-C Work Phone: Start: 10-24-2024 Computed tomography of abdomen and pelvis with intravenous contrast Mariela Olson CITY ASSESSOR-C Work Phone: Start: 10-24-2024 Carcinoembryonic antigen cea Mariela guzman CITY ASSESSOR-C Work Phone: Comment on above: Nonsmokers <3.9 Smokers <5.6[employer] Electrochemiluminescence Immunoassay(ECLIA)Values obtained with different assay methods or kitscannot be used interchangeably. Results cannot beinterpreted as absolute evidence of the presence orabsence of malignant disease.Performed at: [address] [id number] Director: Jian Paredes PhD, Phone: [phone] Start: 10-24-2024 Estimated creatinine clearance Mariela burrell CITY ASSESSOR-C Work Phone: Start: 10-24-2024 Mean corpuscular hemoglobin concentration determination Marieal Olson CITY ASSESSOR-C Work Phone: Start: 10-24-2024 Nucleated red blood cell count procedure Mariela Olson CITY ASSESSOR-C Work Phone: Start: 10-24-2024 Platelet mean volume determination Mariela Olson [employer] ASSESSOR-C Work Phone: Start: 10-24-2024 Procedure Mariela Olson CITY ASSESSOR-C Work Phone: Start: 10-17-2024 Urine microscopy: red cells Mariela Olson CITY ASSESSOR-C Work Phone: Start: 10-17-2024 Urnls dip stick/tablet reagent auto microscopy Mariela Olson CITY ASSESSOR-C Work Phone: Start: 09-07-2024 End: 09-07-2024 Computerized ophthalmic imaging retina Darrel Pringle MD Start: 09-07-2024 End: 09-07-2024 Eylea 1mg Pre-filled Syringe Darrel howard MD Start: 09-07-2024 Eylea 1mg Pre-filled Syringe Darrel howard Start: 09-07-2024 End: 09-07-2024 Eylea Free Drug Darrel Pringle MD Start: 09-07-2024 End: 09-07-2024 Intravitreal njx pharmacologic agt spx Darrel Pringle MD Start: 09-05-2024 Albumin/Globulin ratio Mariela Olson [employer] ASSESSOR-C Work Phone: Start: 09-05-2024 Anion gap measurement Mariela Olson [employer] ASSESSOR-C Work Phone: Start: 09-05-2024 Blood count smear mcrscp w/mnl difrntl wbc count Mariela Olson CITY ASSESSOR-C Work Phone: Start: 09-05-2024 BUN/Creatinine ratio Mariela Olson CITY ASSESSOR-C Work Phone: Start: 09-05-2024 Mean corpuscular hemoglobin concentration determination Mariela Olson [employer] ASSESSOR-C Work Phone: Start: 09-05-2024 Measurement of renal function Mariela vaca CITY ASSESSOR-C Work Phone: Comment on above: GFR Calc Start: 09-05-2024 Nucleated red blood cell count procedure Mariela Olson CITY ASSESSOR-C Work Phone: Start: 09-05-2024 Platelet mean volume determination Mariela Olson CITY ASSESSOR-C Work Phone: Start: 07-18-2024 Carcinoembryonic antigen cea Mariela Ryder r CITY ASSESSOR-C Work Phone: Comment on above: Nonsmokers <3.9 Smokers <5.6[employer] Electrochemiluminescence Immunoassay(ECLIA)Values obtained with different assay methods or kitscannot be used interchangeably. Results cannot beinterpreted as absolute evidence of the presence orabsence of malignant disease.Performed at: [facility] [id number] Director: Jian Paredes PhD, Phone: [phone] Start: 07-18-2024 Measurement of renal function Mariela vaca CITY ASSESSOR-C Work Phone: Comment on above: GFR Calc Start: 07-13-2024 End: 07-13-2024 Computerized ophthalmic imaging retina Darrel Pringle MD Start: 07-13-2024 End: 07-13-2024 Eylea Free Drug Darrel Pringle MD Start: 07-13-2024 Eylea Free Drug Darrel Pringle Start: 07-13-2024 End: 07-13-2024 Intravitreal njx pharmacologic agt spx Darrel Pringle MD Start: 07-04-2024 Calculation of international normalized ratio Mariela Olson CITY ASSESSOR-C Work Phone: Start: 05-29-2024 Positron emission tomography with computed tomography Mariela Olson CITY ASSESSOR-C Work Phone: Start: 05-25-2024 End: 05-25-2024 Computerized ophthalmic imaging retina Darrel Pringle MD Start: 05-25-2024 End: 05-25-2024 Eylea Free Drug Darrel Pringle MD Start: 05-25-2024 Eylea Free Drug Darrel Pringle Start: 05-25-2024 End: 05-25-2024 Intravitreal njx pharmacologic agt spx Darrel Pringle MD Start: 05-16-2024 Ferritin measurement Mariela Olson [employer] ASSESSOR-C Work Phone: Start: 05-16-2024 Immature reticulocyte fraction Mariela burrell CITY ASSESSOR-C Work Phone: Start: 05-16-2024 Total iron binding capacity measurement Mariela Olson CITY ASSESSOR-C Work Phone: Start: 03-30-2024 End: 03-30-2024 Computerized ophthalmic imaging retina Darrel Pringle MD Start: 03-30-2024 End: 03-30-2024 Eylea Free Drug Darrel Pringle MD Start: 03-30-2024 Eylea Free Drug Darrel Pringle Start: 03-30-2024 End: 03-30-2024 Intravitreal njx pharmacologic agt spx Darrel Pringle MD Start: 02-10-2024 End: 02-10-2024 Computerized ophthalmic imaging retina Darrel Pringle MD Start: 02-10-2024 End: 02-10-2024 Eylea Free Drug Darrel Pringle MD Start: 02-10-2024 End: 02-10-2024 Intravitreal njx pharmacologic agt spx Darrel Pringle MD Start: 12-21-2023 End: 12-21-2023 Computerized ophthalmic imaging retina Darrel Pringle MD Start: 12-21-2023 End: 12-21-2023 Eylea Free Drug Darrel Pringle MD Start: 12-21-2023 End: 12-21-2023 Intravitreal njx pharmacologic agt spx Darrel Pringle MD Start: 12-11-2023 Plain chest X-ray Dr. Neville Islas Work Phone: Start: 12-11-2023 CT of head without contrast Dr. Neville barron Work Phone: Start: 10-26-2023 End: 10-26-2023 Computerized ophthalmic imaging retina Darrel Pringle MD Start: 10-26-2023 End: 10-26-2023 Eylea Free Drug Darrel Pringle MD Start: 10-26-2023 End: 10-26-2023 Intravitreal njx pharmacologic agt spx Darrel Pringle MD Start: 08-24-2023 End: 08-24-2023 Computerized ophthalmic imaging retina Darrel Pringle MD Start: 08-24-2023 End: 08-24-2023 Eylea Free Drug Darrel Pringle MD Start: 08-24-2023 End: 08-24-2023 Intravitreal njx pharmacologic agt spx Darrel Pringle MD Start: 08-16-2023 Cardiovascular stress test using pharmacologic stress agent Dr. Neville Islas Work Phone: Start: 08-16-2023 CT angiography of chest with contrast Dr. Neville Islas Work Phone: Start: 08-15-2023 Plain chest X-ray Start: 08-15-2023 CT of head without contrast Start: 06-29-2023 End: 06-29-2023 Computerized ophthalmic imaging retina Darrel Pringle MD Start: 06-29-2023 End: 06-29-2023 Eylea Free Drug Darrel Pringle MD Start: 06-29-2023 End: 06-29-2023 Intravitreal njx pharmacologic agt spx Darrel Pringle MD Start: 05-11-2023 End: 05-11-2023 Computerized ophthalmic imaging retina Darrel Pringle MD Start: 05-11-2023 End: 05-11-2023 Eylea Sample Drug Darrel Pringle MD Start: 05-11-2023 End: 05-11-2023 Intravitreal njx pharmacologic agt spx Darrel Pringle MD Start: 03-30-2023 End: 03-30-2023 Computerized ophthalmic imaging retina Darrel Pringle MD Start: 03-30-2023 End: 03-30-2023 Eylea Sample Drug Darrel Pringle MD Start: 03-30-2023 End: 03-30-2023 Intravitreal njx pharmacologic agt spx Darrel Pringle MD Start: 02-23-2023 End: 02-23-2023 Computerized ophthalmic imaging retina Darrel Pringle MD Start: 02-23-2023 End: 02-23-2023 Eylea Sample Drug Darrel Pringle MD Start: 02-23-2023 End: 02-23-2023 Intravitreal njx pharmacologic agt spx Darrel Pringle MD Start: 01-19-2023 End: 01-19-2023 Computerized ophthalmic imaging retina Darrel Pringle MD Start: 01-19-2023 End: 01-19-2023 Eylea Sample Drug Darrel Pringle MD Start: 01-19-2023 End: 01-19-2023 Intravitreal njx pharmacologic agt spx Darrel Pringle MD Start: 12-08-2022 End: 12-08-2022 Bevacizumab injection Darrel Pringle MD Start: 12-08-2022 End: 12-08-2022 Computerized ophthalmic imaging retina Darrel Pringle MD Start: 12-08-2022 End: 12-08-2022 Intravitreal njx pharmacologic agt spx Darrel Pringle MD Start: 11-03-2022 End: 11-03-2022 Bevacizumab injection Darrel Pringle MD Start: 11-03-2022 End: 11-03-2022 Computerized ophthalmic imaging retina Darrel Pringle MD Start: 11-03-2022 End: 11-03-2022 Intravitreal njx pharmacologic agt spx Darrel Pringle MD Start: 09-29-2022 End: 09-29-2022 Bevacizumab injection Darrel Pringle MD Start: 09-29-2022 End: 09-29-2022 Computerized ophthalmic imaging retina Darrel Pringle MD Start: 09-29-2022 End: 09-29-2022 Intravitreal njx pharmacologic agt spx Darrel Pringle MD Start: 09-01-2022 End: 09-01-2022 Bevacizumab injection Darrel Pringle MD Start: 09-01-2022 End: 09-01-2022 Fundus photography w/interpretation & report Darrel Pringle MD Start: 09-01-2022 End: 09-01-2022 Intravitreal njx pharmacologic agt spx Darrel Pringle MD Start: 07-20-2019 Adult depression screening assessment Beata Herrera MD Work Phone: Start: 07-19-2019 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 Neville Islas Work Phone: Plan of Treatment Date Care Activity Detail Author Start: 04-01-2025 Influenza vaccination Influenza Vaccine (Season Ended) [facility] Start: 01-14-2025 Patient discharge [facility] Start: 01-09-2025 Patient referral [facility] Work Phone: Start: 12-05-2024 Catheterization of vein [facility] Start: 12-05-2024 [facility] therapy [facility] [facility] Start: 12-05-2024 Patient discharge [facility] Start: 12-05-2024 Vital signs measurements [facility] Start: 12-05-2024 Following clinical pathway protocol [facility] Start: 12-05-2024 [facility] Start: 11-20-2024 Patient discharge [facility] Start: 11-18-2024 Application of intermittent pneumatic compression device [facility] Start: 11-18-2024 Following clinical pathway protocol [facility] Start: 11-18-2024 Ambulation without limitation [facility] Start: 11-18-2024 Assessment of risk of venous thromboembolism [facility] Start: 11-18-2024 Insertion of catheter into peripheral vein [facility] Start: 11-18-2024 Providing care according to standard [facility] Start: 11-18-2024 Referral to gastroenterology service [facility] Start: 11-18-2024 [facility] Start: 11-18-2024 Verification routine [facility] Start: 11-18-2024 Admission procedure [facility] Start: 11-18-2024 Patient referral to dietitian [facility] Start: 11-09-2024 Jared Raymond 8 Weeks/ / MAY/ POSS EYLEA/ PAP [facility] Work Phone: Start: 11-07-2024 Patient discharge [facility] Start: 11-07-2024 Care planning and problem solving actions [facility] Start: 11-06-2024 Ova and Parasites Ova and Parasites [facility] Start: 11-06-2024 Enteric precautions [facility] Start: 11-06-2024 Application of intermittent pneumatic compression device [facility] Start: 11-06-2024 Following clinical pathway protocol [facility] Start: 11-06-2024 Assessment of risk of venous thromboembolism [facility] Start: 11-06-2024 Documentation procedure [facility] Start: 11-06-2024 Insertion of catheter into peripheral vein [facility] Start: 11-06-2024 Measuring intake and output [facility] Start: 11-06-2024 Oxygen therapy [facility] Start: 11-06-2024 Providing care according to standard [facility] Start: 11-06-2024 Provision of activity privileges [facility] Start: 11-06-2024 Referral to gastroenterology service [facility] Start: 11-06-2024 Referral to service [facility] Start: 11-06-2024 [facility] Start: 11-06-2024 Admission procedure [facility] Start: 11-06-2024 Verification routine [facility] Start: 11-06-2024 Hospital admission, emergency, from emergency room, medical nature [facility] Start: 11-06-2024 Patient referral to dietitian [facility] Start: 11-06-2024 [facility] Start: 10-24-2024 [facility] Start: 10-24-2024 [facility] Start: 09-07-2024 Smoking cessation education Tobacco cessation counseling [facility] Start: 08-01-2024 Advance Directive Discussion Advance Directive Discussion [facility] Start: 07-13-2024 Smoking cessation education Tobacco cessation counseling [facility] Start: 07-04-2024 Patient referral [facility] Work Phone: Start: 04-01-2024 Covid-19 Vaccine ( season) Covid-19 Vaccine () [facility] Start: 03-30-2024 Smoking cessation education Tobacco cessation counseling [facility] Start: 02-10-2024 Smoking cessation education Tobacco cessation counseling [facility] Start: 12-21-2023 Smoking cessation education Tobacco cessation counseling [facility] Start: 12-11-2023 [facility] Start: 08-16-2023 Patient discharge [facility] Start: 08-15-2023 Following clinical pathway protocol [facility] Start: 08-15-2023 Notification of physician [facility] Start: 08-15-2023 [facility] Start: 08-15-2023 Admission procedure [facility] Start: 08-15-2023 Hospital admission, emergency, from emergency room, medical nature [facility] Start: 08-15-2023 Patient referral to dietitian [facility] Start: 06-29-2023 Smoking cessation education Tobacco cessation counseling [facility] Start: 05-11-2023 Smoking cessation education Tobacco cessation counseling [facility] Start: 05-05-2023 DIABETES SCREEN DIABETES SCREEN [facility] Start: 05-05-2023 Diabetes Screening Diabetes Screening [facility] Start: 03-30-2023 Smoking cessation education Tobacco cessation counseling [facility] Start: 01-19-2023 Smoking cessation education Tobacco cessation counseling [facility] Start: 12-08-2022 Smoking cessation education Tobacco cessation counseling [facility] Start: 09-29-2022 Smoking cessation education Tobacco cessation counseling [facility] Start: 09-01-2022 Smoking cessation education Tobacco cessation counseling [facility] Start: 04-01-2022 Influenza vaccination INFLUENZA (#1) [facility] Start: 08-01-2021 ADVANCE DIRECTIVE DISCUSSION ADVANCE DIRECTIVE DISCUSSION [facility] Start: 05-05-2021 Hepatitis B surface antibody level LDL CHOLESTEROL [facility] Start: 08-03-2020 ANNUAL PCP TEAM CHRONIC DISEASE VISIT ANNUAL PCP TEAM CHRONIC DISEASE VISIT [facility] Start: 07-20-2020 Adult depression screening assessment DEPRESSION SCREENING [facility] Start: 2019 RSV Vaccine (1 - 1-dose 75+ series) RSV Vaccine (1 - 1-dose 75+ series) [facility] Start: 03-01-2009 Medicare Annual Wellness Visit Medicare Annual Wellness Visit [facility] Start: 1994 Pneumococcal Vaccine: 50+ (1 of 1 - PCV) Pneumococcal Vaccine: 50+ (1 of 1 - PCV) [facility] Start: 1994 SHINGRIX VACCINE (1 of 2) SHINGRIX VACCINE (1 of 2) [facility] Start: 1963 Urine microalbumin profile [facility] Start: 1962 Annual PCP Team Chronic Disease Visit Annual PCP Team Chronic Disease Visit [facility] Start: 1962 Anxiety Screening Anxiety Screening [facility] Start: 1962 BP CONTROLLED (<130/80) BP CONTROLLED (<130/80) [facility] Start: 1962 Depression Screening Depression Screening [facility] Start: 1962 HEPATITIS C SCREENING HEPATITIS C SCREENING [facility] Start: 1950 PNEUMOCOCCAL: 65+ (1 - PCV) PNEUMOCOCCAL: 65+ (1 - PCV) [facility] Start: 1944 COVID-19 VACCINE (#1) COVID-19 VACCINE (#1) [facility] Anion gap in Serum o r Plasma [facility] BUN/Creatinine ratio [facility] Calcium [Mass/volume ] in Serum or Plasma [facility] Carbon dioxide, tota l [Moles/volume] in Central venous blood [facility] Carcinoembryonic Ag [Mass/volume] in Serum or Plasma [facility] Carcinoembryonic Ag [Mass/volume] in Serum or Plasma [facility] Carcinoembryonic Ag [Mass/volume] in Serum or Plasma [facility] CBC W Auto Different ial panel - Blood [facility] Comprehensive metabo lic 2000 panel - Serum or Plasma [facility] Creatinine [Mass/vol ume] in Serum or Plasma [facility] CT Abdomen and Pelvi s W contrast IV [facility] Erythrocyte mean corpuscular volume determination [facility] Ferritin [Mass/volum e] in Serum or Plasma [facility] Glucose [Mass/volume ] in Serum or Plasma [facility] Hematocrit [Volume Fraction] of Blood [facility] Hemoglobin [Mass/vol ume] in Blood [facility] Iron and Iron bindin g capacity panel - Serum or Plasma [facility] Leukocytes [#/volume ] in Blood [facility] Magnesium measurement [facility] Mean corpuscular hem oglobin concentration determination [facility] Mean corpuscular hem oglobin determination [facility] Measurement of renal function [facility] Neutrophil count [facility] Neutrophil percent differential count [facility] Ova OR parasites identification [facility] Patient Education [facility] Work Phone: Patient referral [facility] Work Phone: Platelets [#/volume] in Blood [facility] Potassium measurement [facility] Red blood cell count [facility] Red cell distributio n width determination [facility] Serum chloride measurement [facility] Sodium measurement [facility] Urea nitrogen [Mass/ volume] in Serum or Plasma [facility] Immunizations Immunization Date Immunization Notes Care Provider Fa cility 08-03-2019 influenza virus vacc ine, unspecified formulation Papi Hernandez MD Work Phone: [facility] Payers Date Payer Category Payer Medicare [id number] 2024 Self-pay [id number] 2024 Self-pay [id number] 2022 Self-pay 0 [id number] 2009 Medicare MEDICARE [id number] 1944 Unknown [id number] 2.840.1.628699.3.579.2.134 7 1944 Unknown [id number] 2..840.1.193439.3.579.2.134 7 1944 Unknown [id number] 2.840.1.507724.3.579.2.134 7 1944 Unknown [id number] 2.16.840.1.472538.3.579.2.134 7 1944 Unknown [id number] 2.16.840.1.608668.3.579.2.134 7 4 Unknown [id number] 2.16.840.1.550155.3.579.2.134 7 Unknown [id number] 2.16.840.1.970008.3.579.2.462 Unknown [id number] 2.16.840.1.392983.3.579.2.462 Unknown [id number] 2.16.840.1.141896.3.579.2.462 Unknown [id number] 2.16.840.1.561540.3.579.2.462 Unknown [id number] 2.16.840.1.044033.3.579.2.462 Unknown [id number] 2.16.840.1.876798.3.579.2.462 Unknown [id number] 2.16.840.1.033958.3.579.2.462 Unknown [id number] 2.16.840.1.399134.3.579.2.462 Unknown [id number] 2.16.840.1.719934.3.579.2.462 Unknown [id number] 2.16.840.1.193017.3.579.2.462 Unknown [id number] 2.16.840.1.123081.3.579.2.462 Unknown [id number] 2.16.840.1.083818.3.579.2.462 Unknown [id number] 2.16.840.1.581451.3.579.2.462 Unknown [id number] 2.16.840.1.994623.3.579.2.462 Unknown [id number] 2.16.840.1.128762.3.579.2.462 Unknown [id number] 2.16.840.1.075083.3.579.2.462 Unknown [id number] 2.16.840.1.555039.3.579.2.462 Unknown [id number] 2.16.840.1.381709.3.579.2.462 Unknown [id number] 2.16.840.1.059365.3.579.2.462 Unknown [id number] 2.16.840.1.835783.3.579.2.462 Unknown [id number] 2.16.840.1.109141.3.579.2.462 Unknown [id number] 2..840.1.208019.3.579.2.462 Unknown [id number] 2..840.1.231740.3.579.2.462 Unknown [id number] 2.840.1.669602.3.579.2.462 Unknown [id number] 2..840.1.750415.3.579.2.462 Unknown [id number] 2..840.1.124181.3.579.2.462 Unknown [id number] 2..840.1.396929.3.579.2.462 Unknown [id number] 2.16.840.1.020001.3.579.2.462 Unknown [id number] 2.16.840.1.416253.3.579.2.462 Unknown [id number] 2.16.840.1.765663.3.579.2.462 Unknown [id number] 2.16.840.1.405017.3.579.2.462 Unknown [id number] 2.16.840.1.378828.3.579.2.462 Unknown [id number] 2.16.840.1.446859.3.579.2.462 Unknown [id number] 2.16.840.1.944283.3.579.2.462 Unknown [id number] 2.16.840.1.227307.3.579.2.462 Unknown [id number] 2.16840.1.570845.3.579.2.462 Unknown [id number] 2.16.840.1.682350.3.579.2.462 Unknown [id number] 2.840.1.712450.3.579.2.462 Unknown [id number] 2.840.1.127368.3.579.2.462 Unknown [id number] 2.840.1.365508.3.579.2.462 Unknown [id number] 2.840.1.277237.3.579.2.462 Unknown [id number] 2.840.1.313038.3.579.2.462 Unknown [id number] 2.840.1.160688.3.579.2.462 Unknown [id number] 2.840.1.310020.3.579.2.462 Unknown [id number] 2.840.1.088657.3.579.2.462 Unknown [id number] 2.840.1.728082.3.579.2.462 Unknown [id number] 2.840.1.687489.3.579.2.462 Unknown [id number] 2.840.1.334647.3.579.2.462 Unknown [id number] 2.840.1.640026.3.579.2.462 Unknown [id number] 2.840.1.363505.3.579.2.462 Unknown [id number] 2.840.1.497326.3.579.2.462 Unknown [id number] 2.840.1.884837.3.579.2.462 Unknown [id number] 2.16.840.1.090562.3.579.2.462 Unknown [id number] 2.16.840.1.988851.3.579.2.462 Unknown [id number] 2.16.840.1.268796.3.579.2.462 Unknown [id number] 2.16.840.1.437372.3.579.2.462 Unknown [id number] 2.16.840.1.927477.3.579.2.462 Unknown [id number] 2.16.840.1.736328.3.579.2.462 Unknown [id number] 2.16.840.1.918742.3.579.2.462 Unknown [id number] 2.16.840.1.677485.3.579.2.462 Unknown [id number] 2.16.840.1.642774.3.579.2.462 Unknown [id number] 2.16.840.1.870004.3.579.2.462 Unknown [id number] 2.16.840.1.150031.3.579.2.462 Unknown [id number] 2.16.840.1.527513.3.579.2.462 Unknown [id number] 2.16.840.1.263656.3.579.2.462 Unknown [id number] 2.16.840.1.796066.3.579.2.462 Unknown [id number] 2.16.840.1.419900.3.579.2.462 Unknown [id number] 2.16.840.1.113325.3.579.2.462 Unknown [id number] 2.16.840.1.293968.3.579.2.462 Unknown [id number] 2.16.840.1.959785.3.579.2.462 Unknown [id number] 2.16.840.1.453792.3.579.2.462 Unknown [id number] 2.16.840.1.299964.3.579.2.462 Unknown [id number] 2.16.840.1.417610.3.579.2.462 Social History Date Type Detail Facility Start: [birth year]-01-1959 End: 05-05-2020 Tobacco smoking status NHIS Occasional tobacco smoker [facility] End: 08-01-1993 History of tobacco use Cigar Smoker [facility] Start: 05-07-2019 End: 07-06-2020 Cigarettes smoked current (pack per day) - Reported 1 [facility] Start: 05-07-2019 End: 05-05-2020 Tobacco use and exposure Smokeless tobacco non-user [facility] Start: 05-05-2020 Alcohol intake Current non-dr cord cutter of alcohol (finding) [facility] Start: 05-07-2019 Tobacco Comment smokes occasio nal cigars. quit cigarettes in 1993 [facility] Start: 1945 Sex Assigned At Not on file [facility] Start: 03-06-2018 End: 09-07-2024 Tobacco smoking status MTIS Unknown if ever smoked [facility] Start: 01-25-2023 None [facility] Start: 10-31-2014 Spouse/ Signif icant Other [facility] Start: 01-25-2023 Cigarettes [facility] Start: 1945 Sex Assigned At Male [facility] Start: 09-07-2024 Alcohol intake Alcohol Use Details [facility] [employer] [facility] Start: 10-24-2024 End: 01-14-2025 Tobacco smoking status NHIS Ex-smoker (finding) [facility] Start: 10-24-2024 End: 11-20-2024 Sex Male (finding) [facility] Start: [birth year]-01-1959 End: 08-01-1993 History of tobacco use Cigarette Smoker [facility] Start: 05-05-2020 End: 07-06-2020 Tobacco use panel [facility] PHQ2 Score 0 [facility] NEGATED: Highlighted rowStart: 09-07-2024 History of tobacco use Ex-cigarette smoker [facility] Medical Equipment Procedure Code Equipment Code Equipment Origin al Text Equipment Identifier Dates Sigmoidoscopy, flexible [id number] FDA Start: 11-06-2024 Colonoscopy [id number] FDA Start: 04-13-2024 Colonoscopy [id number] [id number] FDA Start: 11-19-2024 [place] Thk1.65mm P tfe 4x.5in Cardiovascular Sterile - [id number] Start: 07-19-2019 CLIP,[facility] FDA Sta rt: 04-27-2024 CLIP,[facility] FDA St art: 04-27-2024 [id number] FDA Start: 04-27-2024 [id number] [id number] FDA Start: 04-27-2024 CLIP,[facility] FDA Sta rt: 04-27-2024 [facility] FDA St art: 04-27-2024 CLIP,[facility] FDA Sta rt: 04-27-2024 CLIP,HEMOLOCK [facility] FDA St art: 04-27-2024 CLIP,[facility] FDA Sta rt: 04-27-2024 CLIP,HEMOLOCK [facility] FDA St art: 04-27-2024 CLIP,[facility] FDA Sta rt: 04-27-2024 CLIP,HEMOLOCK [facility] FDA St art: 04-27-2024 CLIP,[facility]OLOCK [facility] FDA Sta rt: 04-27-2024 CLIP,HEMOLOCK [facility] FDA St art: 04-27-2024 CLIP,[facility]MOLOCK [facility] FDA Sta rt: 04-27-2024 CLIP,HEMOLOCK [facility] FDA St art: 04-27-2024 FDA Start: 04-27-2024 FDA Start: 04-27-2024 [facility] FDA Sta rt: 04-27-2024 [facility] FDA St art: 04-27-2024 FDA Start: 04-27-2024 FDA Start: 04-27-2024 FDA Start: 04-27-2024 FDA Start: 04-27-2024 FDA Start: 04-27-2024 FDA Start: 04-27-2024 Goals Date Patient Goal Desired Activity /State Functional Status Date Assessment Result Facility 11-20-2024 Functional status Ambulates [facility] Work Phone: 11-07-2024 Functional status Ambulates;Up ad raghavendra [facility] Work Phone: 08-16-2023 Functional status Ambulates;Bath room Privilege [facility] Work Phone: 08-15-2023 Functional status Tolerates Activity Well [facility] Work Phone: 07-23-2019 Are you deaf, or do you have serious difficulty hearing No 07/23/2019 4:22 PM Isaac Guzman APRN.CATERING CONVENTION SERVICES MANAGER No [facility] Work Phone: 07-23-2019 Are you blind, or do you have serious difficulty seeing, even when wearing glasses No 07/23/2019 4:22 PM Isaac Guzman APRN.CATERING CONVENTION SERVICES MANAGER No [facility] 07-23-2019 Do you have serious difficulty walking or climbing stairs No 07/23/2019 4:22 PM Isaac Guzman APRN.CATERING CONVENTION SERVICES MANAGER No [facility] 07-23-2019 Do you have difficul ty dressing or bathing No 07/23/2019 4:22 PM Isaac Guzman, TASH.CATERING CONVENTION SERVICES MANAGER No [facility] 07-23-2019 Because of a physica l, mental, or emotional condition, do you have difficulty doing errands alone such as visiting a physician's office or shopping No 07/23/2019 4:22 PM Isaac Guzman APRN.CATERING CONVENTION SERVICES MANAGER No [facility] Mental Status Date Assessment Result Facility 12-05-2024 Cognitive function Voice/Name [facility] Work Phone: 12-05-2024 Cognitive function Awake;Alert;A ppropriate;Fol lows Commands [facility] Work Phone: 11-20-2024 Cognitive function Voice/Name [facility] Work Phone: 11-07-2024 Cognitive function Voice/Name [facility] Work Phone: 08-16-2023 Cognitive function Voice/Name [facility] Work Phone: 08-15-2023 Cognitive function Level Of Cons ciousness Awake;Alert;Appropriate;Fol lows Commands [facility] Work Phone: 07-23-2019 Because of a physica l, mental, or emotional condition, do you have serious difficulty concentrating, remembering, or making decisions No 07/23/2019 4:22 PM Isaac Guzman APRN.CATERING CONVENTION SERVICES MANAGER No [facility] Clinical Notes 07-19-2019 to 02-05-2025 Note Date & Type Note Facility 02-05-2025 Note Patient sched for fi nancial counseling and CTA/VC appts. I will mail her CITY ASSESSOR packet and make chart. [facility] 01-13-2025 History and physical note Note Date/Time January 13, 2025 7:57am [facility] Medical Records Department [address] [place] [address] History & Physical Exam 01/06/25 0808 MR#: [id number] Acct: [id number] Name: JARED RAYMOND Rep #:[id number] : 1945 79 From: Adrian Flores MD PCP: MARYAM Guerra Status:PRE [facility] History and Physical Date of Admission: 01/14/25 79-year-old man with a history of hypertension, coronary artery disease status post cardiac catheterization and coronary bypass surgery in 2019 with a FUNG to the LAD radial to the ramus saphenous vein graft to the first obtuse marginal branch saphenous vein graft to posterior descending artery and saphenous vein graft as a T graft of the saphenous vein graft to the posterolateral vessel. On 12/14/2024 he had a hemoglobin noted of 10.8. He follows with the GI team. He follows with oncology team for metastatic colon cancer. He was seen in cardiology office in September 2024 and underwent screening echocardiogram. Echocardiogram completed on 11/28/2024 showed LV function 65%, normal LV size, and a mean aortic valve gradient 44 mmHg. He denies chest, arm, jaw, or neck discomfort. He denies palpitations. He denies bilateral lower extremity edema. He denies claudication. He denies shortness of breath with activity, shortness of breath at rest, orthopnea, or PND. He denies chronic cough. He denies significant, sudden weight gain. He denies lightheadedness, dizziness, near-syncope, or syncope. He denies blood in urine, blood in stool, or epistaxis. He denies fever with chills. He denies myalgia. He denies fatigue. His exercise level has remained stable. Intake Vital Signs: See EMR Intake Visit Reasons: [facility] Shook Splicer Required: No Is patient in pain?: No Allergies No Known Allergies Allergy (Verified 10/17/24 14:22) Medications: See EMR Ejection fraction %: 70 Have you fallen in the past year?: No [facility] Medical History (Updated 10/17/24 @ 14:43 by Malinda Webster CITY ASSESSOR, CITY ASSESSOR-C) Encounter for education Pre-op testing Wears dentures Arthritis Anemia Gastric reflux Former smoker History of edema History of echocardiogram History of stress test Cardiology follow-up encounter Aortic stenosis Preop cardiovascular exam Colon cancer Overweight (BMI 25.0-29.9) Colonic mass Coronary artery disease 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 Chronic hypertension Acute alteration in mental status Neuropathy Vasectomy planned Hyponatremia TIA (transient ischemic attack) CVA (cerebral vascular accident) Hypertension History of stroke Tobacco use Benign essential hypertension Surgical History History of hemicolectomy (04/25/24) H/O vasectomy S/P right hemicolectomy History of tonsillectomy History of appendectomy 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) Family History Father Arthritis Alcohol abuseMother Alcohol abuse Liver disease Social History Smoking Status: Former smoker alcohol intake: never substance use type: does not use ROS Const Const: Positive for other (Recovering from the flu); Negative for fatigue or weakness Eyes Eyes: Negative for change in vision ENT ENT: Negative for dizziness or balance problems Cardio Chest Pain: No Palpitations: No Edema: None Muscle aches with walking: None Resp Respiratory: Negative for SOB with activity, SOB at rest or SOB orthopneaundefinedSOB lying down GI GI: Negative nausea or heartburn : Negative for hematuria or frequent nighttime urination/ nocturia Musc Musc: Negative for balance problems Skin Skin: Negative non-healing lesions or rash Neuro Neuro: Negative for dizziness, lightheadedness, near syncope, syncope or weakness Endo Endo: Negative for fatigue Allergy Allergy/Immunology: Negative for rash Cardiology Exam Const Appearance: cooperative, healthy appearing, comfortable and no acute distress Nutritional Appearance: average body habitus and well nourished Orientation: alert, awake and oriented x3 Head Head: normal to inspection Ears: hearing grossly normal bilaterally Nose: external nose normal Face and Sinus: face symmetric Mouth: moist mucous membranes Eyes General: appearance normal, both eyes and all related structures Eyelids: eyelids normal EOM: EOM intact bilaterally Neck Neck: normal visual inspection and no JVD Carotids: normal carotid upstroke Chest Chest inspection: normal inspection of the chest, symmetric chest movement and normal respiratory effort; Negative cough Auscultation: Left: Inspiratory Wheezes and Right: Clear to Auscultation Cardio Rate: regular rate Rhythm: regular rhythm Heart sounds: S1 normal, S2 normal and murmur; Negative rub or gallop Murmur: Grade 2/6 and GUMARO loudest primary aortic area GI GI: normal to inspection Neuro General: patient alert, patient awake, patient oriented x3 and CN's II-XI intactbilaterally Skin Skin: no rashes or lesions noted Extremities Pulses: Normal: Right Posterior Tibial Pulse, Left Posterior Tibial Pulse, RightRadial Pulse and Left Radial Pulse Lower Extremity Edema: None: Bilateral Psych Psychological: normal affect Supplemental Info Supplemental Information Echocardiogram from 11/28/2024: Interpretation Summary Normal LV size. Left ventricular systolic function is normal. The left ventricular ejection fraction is 65 %. Stage 1 diastolic dysfunction. Peak aortic valve gradient 74 mmHg. Mean aortic valve gradient 44 mmHg. Severe aortic stenosis. Compared to the previous the gradients are worse. Echocardiogram 04/13/2024 Interpretation Summary The estimated ejection fraction is 70%. No evidence for diastolic dysfunction. Trivial mitral valve insufficiency. Moderate aortic stenosis. CTA Chest/Abdomen/Pelvis 04/11/2024 IMPRESSION: 1. No evidence of pulmonary artery embolus. 2. Masslike wall thickening of the ascending colon and a region measuring up to approximately 4.5 cm suspicious for malignancy. Recommend direct visualization and surgical consultation. 3. Moderate to severe stenosis of the right common and right external iliac artery secondary to densely calcified atheroma. 4. Bilateral apical scarring, left greater than right with band like opacity in the left upper lobe similar to the prior examination. 5. Low-attenuation right posterior hepatic lobe lesion is indeterminate, not distinctly assist particularly given the bowel pathology described. Metastatic disease cannot be excluded. 6. Near occlusion of the left common iliac artery secondary to densely calcified atheroma. 7. Multiple nonspecific enlarged mediastinal lymph nodes particularly subcarinal lymph nodes. 8. Colonic diverticulosis without evidence of acute diverticulitis. Stress Test 08/16/2023 Conclusion: Negative Lexiscan sestamibi myocardial perfusion study for reversible myocardialischemia Hyperdynamic left ventricle. Patient has no symptoms to report, in particular no chest pain Assessment and Plan Assessment and Plan (1) Hx of CABG: Status: Chronic Comment: FUNG in situ mammary end to side distal LAD ? Left radial artery ascending aorta end to side ramus ? Vein graft ascending aorta obtuse marginal 1 ? Vein graft ascending aorta end to side posterior descending (PDA) ? Vein graft T-graft off SVG end to side posterolateral (PLB) Plan: Pharmacologic stress test in August 2023 was negative for ischemia. We will continue to monitor and not make any medication regimen changes. We will continue to promote risk factor and lifestyle modification. (2) Aortic stenosis: Status: Chronic Qualifiers: Cardiac valve disease etiology: nonrheumatic Qualified Code(s): I35.0 -Nonrheumatic aortic (valve) stenosis Plan: Echocardiogram on 11/28/2024 showed peak aortic valve gradient of 74 mmHg and mean aortic valve gradient of 44 mmHg. He will proceed with heart catheterization to guide further valvular treatment. Long-term valvular treatment/surgerywill need to be taken into account his chronic health issues that include colon cancer and potential treatment for such. (3) Benign essential hypertension: Status: Chronic Plan: Patient's blood pressure is well-controlled. We will continue to monitor. We will not make any medication regimen changes. Plan Details Additional Comments: Thank you for allowing us to participate in the patients plan of care, if you have any questions please do not hesitate to call. Plan was reviewed with patient/family member along with red flag symptoms. Understanding was acknowledged. Questions were answered to apparent satisfaction. This note was generated using a voice recognition system and there may be incorrect words, spelling or punctuation that were not noted when reviewing the office note prior to saving. Portions of this documentation were copied and pasted from previous office visitnotes to provide a cohesive continuity of the history. The note has been reviewed, edited, and updated, as necessary. 01/08/25 0632 <Electronically signed by Adrian Flores MD> Cosigner Signature (if applicable): 01/13/25 0757 <Electronically signed by Malinda FRANCISCO> CC: CHRISTEL-Jenifer Webster; MARYAM Olson; Dr. Adrian Flores MD~ Signed [facility] Work Phone: 1(825) 737-426006-08-2025 [facility]05-17-2025 Radiology Diagnostic study [facility]05-07-2025 Radiology Diagnostic study note [facility] Imaging Services [address] [place], [place] [address] Biopsy/Inj or Needle Placement MR#: [id number] Acct: [id number] Name: JARED RAYMOND Rep #: [id number] : 1945 M 79 From: Esdras Watts MD PCP: MARYAM Guerra Status: REG CLI Study:Biopsy/Inj or Needle Placement Date of Exam: 12/05/24 Exam# [id number] Ordering Dr: Brenda Araujo MD PROCEDURE: BIOPSY/INJ OR NEEDLE PLACEMENT 12/05/2024 REASON FOR EXAM: LIVER OR LYMPH NODE TECHNIQUE: Start time 1022 hours, stop time 1055 hours. Doses: Versed 2 mg intravenous, fentanyl 50 mcg intravenous. Procedure: Following informed consent, and using standard sterile technique, a CT-guided core biopsy of a lateral right inferior hepatic lesion was performed. 2% lidocaine local anesthesia was followed by placement of an 18 gauge 10 cm CorVocet coaxial core biopsy system under CT guidance. A total of 5 core samples was successfully obtained. No complication was encountered, in the patient left the department in good condition, without significant complaint. One or more dose reduction techniques were used (e.g., Automated exposure control, adjustment of the mA and/or kV according to patient size, use of iterative reconstruction technique). RADIATION DOSE SUMMARY: DLP: 1711.23 mGycm COMPARISON: Abdomen and pelvis CT of 11/18/2024. CT/Biopsy/Inj or Needle Placement IMPRESSION: Successful right lateral inferior hepatic CT-guided core biopsy. Pathology results pending. Reading Location: [place] [address] CC: CITY ASSESSOR-C Mariela Olson; Dr. Brenda Araujo MD ~ Database Analyst: Signed [facility]05-04-2025 Radiology Diagnostic study [facility]04-22-2025 Discharge summary Author Neville Jang [facility] Note Date/Time November 20, 2024 1:2 2pm [facility] Medical Records Department [address] [place] [address] Instructions for Home/Discharge Instructions 11/20/24 1241 MR#: [id number] Acct: [id number] Name: JARED RAYMOND Rep #:[id number] : 1945 79 From: Neville Jang DO PCP: MARYAM Guerra Status:ADM IN Discharge Instructions Diet Discharge Diet: No restrictions DC O2, CPAP, BIPAP needs Home O2 Discharge instructions: No Dressing / Incision Discharge Activity: Return to Normal Activity Weight Bearing Status: Full weight bearing Follow Up Care Test Results: Test results from this visit will be discussed in further detail at your follow- up appointment, if applicable. Discharge Plan Admission Admit Date/Time: 11/18/24 12:59 Primary Reason for Your Visit: Lower GI bleed Attending Provider: Neville Jang Primary Care Provider: Mariela Olson Consulting Providers: Kelvin Schrader Discharge Orders/Prescriptions Prescriptions: New oxycodone 5 mg tablet 5 mg PO Q4H PRN (Reason: pain) 7 Days Qty: 30 0RF Continued metoprolol tartrate 50 mg tablet 25 mg PO QDAY amlodipine 5 mg tablet 5 mg PO DAILY ferrous sulfate [Iron (ferrous sulfate)] 325 mg (65 mg iron) tablet 325 mg PO DAILY 30 Days Qty: 60 5RF clonidine HCl 0.1 mg tablet 0.1 mg PO DAILY PRN (Reason: hbp) Patient Comments: pt states he only takes if bp is over 200+ oxycodone 5 mg tablet 5 mg PO Q6H PRN (Reason: pain) 7 Days Qty: 28 0RF Referrals / Follow Up: Mariela Olson NP-C [Primary Care Provider] - Selam Craig NP, CHRISTEL-C [Med Staff - [facility]] - See Referral Note (Theoffice will call you to confirm an appointment time) Disposition Disposition (needs filled in before D/C Order can be placed): Home, Self Care 11/20/24 1322<Electronically signed by Neville Jang DO>Neville Jang DO CC: CHRISTEL-C Mariela Olson; Dr. Kelvin Schrader MD ~ Signed [facility] Work Phone: 1(362) 794-500704-22-2025 Consult note [facility] Medical Records Department [address] [place] [address] Counseling Note - Pharmacy 11/20/24 1342 MR#: [id number] Acct: [id number] Name: JARED RAYMOND Rep #:[id number] : 1945 79 From: Kush Daniel PCP: MARYAM Guerra Status:ADM IN Y Location: [facility] [id number] Pharmacy [place] Med Reconciliation Pharmacy Service has performed discharge medication reconciliation for this patient. The patient's discharge medication list was reviewed for discrepancies and discrepancies were resolved. Medications at Discharge Home Medications amlodipine 5 mg tablet 5 mg PO DAILY HEART 05/16/24 clonidine HCl 0.1 mg tablet 0.1 mg PO DAILY PRN hbp 06/08/24 ferrous sulfate 325 mg (65 mg iron) tablet (Iron (ferrous sulfate)) 325 mg PO DAILY 30 days #60 tabs 06/10/24 metoprolol tartrate 50 mg tablet 25 mg PO QDAY Blood pressure/heart rat 10/17/24 oxycodone 5 mg tablet 5 mg PO Q6H PRN pain 7 days #28 tabs 10/24/24 oxycodone 5 mg tablet 5 mg PO Q4H PRN pain 7 days #30 tabs 11/20/24 11/20/24 1343 r> Date _ Kush Vela Signature (if applicable): Date CC: ~ Signed [facility]04-22-2025 Discharge summary [facility] Medical Records Department [address] [place] [address] Instructions for Home/Discharge Instructions 11/20/24 1241 MR#: [id number] Acct: [id number] Name: JARED RAYMOND Rep #:[id number] : 1945 79 From: Neville Jang DO PCP: MARYAM Guerra Status:ADM IN Discharge Instructions Diet Discharge Diet: No restrictions DC O2, CPAP, BIPAP needs Home O2 Discharge instructions: No Dressing / Incision Discharge Activity: Return to Normal Activity Weight Bearing Status: Full weight bearing Follow Up Care Test Results: Test results from this visit will be discussed in further detail at your follow- up appointment, if applicable. Discharge Plan Admission Admit Date/Time: 11/18/24 12:59 Primary Reason for Your Visit: Lower GI bleed Attending Provider: Neville Jang Primary Care Provider: Mariela Olson Consulting Providers: Kelvin Schrader Discharge Orders/Prescriptions Prescriptions: New oxycodone 5 mg tablet 5 mg PO Q4H PRN (Reason: pain) 7 Days Qty: 30 0RF Continued metoprolol tartrate 50 mg tablet 25 mg PO QDAY amlodipine 5 mg tablet 5 mg PO DAILY ferrous sulfate [Iron (ferrous sulfate)] 325 mg (65 mg iron) tablet 325 mg PO DAILY 30 Days Qty: 60 5RF clonidine HCl 0.1 mg tablet 0.1 mg PO DAILY PRN (Reason: hbp) Patient Comments: pt states he only takes if bp is over 200+ oxycodone 5 mg tablet 5 mg PO Q6H PRN (Reason: pain) 7 Days Qty: 28 0RF Referrals / Follow Up: Shahram,Mariela, CITY ASSESSOR-C [Primary Care Provider] - Selam Craig NP, CHRISTEL-C [Med Staff - [facility]] - See Referral Note (Theoffice will call you to confirm an appointment time) Disposition Disposition (needs filled in before D/C Order can be placed): Home, Self Care 11/20/24 1322Mark Tereletsky DO CC: MARYAM Olson; Dr. Kelvin Schrader MD ~ Signed [facility]04-22-2025 [facility]04-22-2025 Consult note Author Keo Burgos [facility] Note Date/Time November 20, 2024 9:5 5am [facility] Medical Records Department [address] [place] [address] Anesthesia Postop Eval II 11/20/2452 MR#: [id number] Acct: [id number] Name: JARED RAYMOND Rep #:[id number] : 1945 79 From: Keo Burgos MD PCP: MARYAM Guerra Status:ADM IN Y Race: C Location: [facility] [id number] Anesthesia Postop Eval I Sum Postop Eval Completion status Anesthesia document: Postop Eval 1 completed: Yes Anesthesia Postop Eval I Summary Anesthesia Postop Eval I Summary: Anesthesia Postop Eval I: Assessment Summary Airway patent Yes 11/19/24 14:04 [email or web address] Spontaneous unlabored Yes 11/19/24 14:04 [email or web address] respirations Mental status Awake 11/19/24 14:04 [email or web address] nausea No 11/19/24 14:04 [email or web address] Vomiting No 11/19/24 14:04 [email or web address] Anesthesia Postop Eval I: Fluid Summary Crystalloid volume administer 60 11/19/24 14:05 [email or web address] (ml) Colloids volume administered ( ml) Blood Product volume administered (ml) Total IV fluid infused 60 11/19/24 14:05 [email or web address] Anesthesia Postop Eval I: Summary Notes Anesthesia Complication No 11/19/24 14:04 [email or web address] Anesthesia Complication Comment: Post-operative progress note Anesthesia: Postop Eval II Evaluation Mental status: Awake and Calm Pain Level: 0 nausea: No Vomiting: No Complications Anesthesia Complication: No 11/20/2455 <Electronically signed by Keo mathew MD> Date _ Keo Burgos MD Cosigner Signature: Date CC: ~ Signed [facility] Work Phone: 1(360) 946-348604-22-2025 Consult note [facility] Medical Records Department [address] [place], [place] [address] [place] [address] Anesthesia Postop Eval II 11/20/2452 MR#: [id number] Acct: [id number] Name: JARED RAYMOND Rep #:[id number] : 1945 79 From: Keo Burgos MD PCP: MARYAM Guerra Status:ADM IN Y Race: C Location: [place] [address] Anesthesia Postop Eval I Sum Postop Eval Completion status Anesthesia document: Postop Eval 1 completed: Yes Anesthesia Postop Eval I Summary Anesthesia Postop Eval I Summary: Anesthesia Postop Eval I: Assessment Summary Airway patent Yes 11/19/24 14:04 [email or web address] Spontaneous unlabored Yes 11/19/24 14:04 [email or web address] respirations Mental status Awake 11/19/24 14:04 [email or web address] nausea No 11/19/24 14:04 [email or web address] Vomiting No 11/19/24 14:04 [email or web address] Anesthesia Postop Eval I: Fluid Summary Crystalloid volume administer 60 11/19/24 14:05 [email or web address] (ml) Colloids volume administered ( ml) Blood Product volume administered (ml) Total IV fluid infused 60 11/19/24 14:05 [email or web address] Anesthesia Postop Eval I: Summary Notes Anesthesia Complication No 11/19/24 14:04 [email or web address] Anesthesia Complication Comment: Post-operative progress note Anesthesia: Postop Eval II Evaluation Mental status: Awake and Calm Pain Level: 0 nausea: No Vomiting: No Complications Anesthesia Complication: No 11/20/24 0955 quincy DAVIS> Date _ Keo Burgos MD Cosigner Signature: Date CC: ~ Signed [facility]04-22-2025 Procedure note [facility] Medical Records Department [address] [place] [address] Colonoscopy Report MR#: [id number] Acct: [id number] Name: JARED RAYMOND Rep #:[id number] : 1945 79 From: Ari Silvestre DO PCP: MARYAM Guerra Status:ADM IN Patient Name: Jared Raymond Procedure Date: 11/19/2024 1:03 PM Date of : 1945 Age: 79 Procedure: Colonoscopy Indications: Hematochezia Providers: Ari Silvestre DO Referring MD: Kelvin Schrader Medicines: Monitored Anesthesia Care Patient Profile: This is an 79 year old male. Refer to note in patient chart for documentation of history and physical. Last Colonoscopy: Complications: No immediate complications. Procedure: Pre-Anesthesia Assessment: - Prior to the procedure, a History and Physical was performed, and patient medications and allergies were reviewed. The patient is competent. The risks and benefits of the procedure and the sedation options and risks were discussed with the patient. All questions were answered and informed consent was obtained. Patient identification and proposed procedure were verified by the physician in the pre-procedure area. Mental Status Examination: alert and oriented. Airway Examination: normal oropharyngeal airway and neck mobility. Prophylactic Antibiotics: The patient does not require prophylactic antibiotics. Prior Anticoagulants: The patient has taken no anticoagulant or antiplatelet agents. ASA Grade Assessment: III - A patient with severe systemic disease. After reviewing the risks and benefits, the patient was deemed in satisfactory condition to undergo the procedure. The anesthesia plan was to use monitored anesthesia care (MAC). Immediately prior to administration of medications, the patient was re-assessed for adequacy to receive sedatives. The heart rate, respiratory rate, oxygen saturations, blood pressure, adequacy of pulmonary ventilation, and response to care were monitored throughout the procedure. The physical status of the patient was re-assessed after the procedure. After I obtained informed consent, the scope was passed under direct vision. Throughout the procedure, the patient's blood pressure, pulse, and oxygen saturations were monitored continuously. The pediatric colonoscope was introduced through the anus and advanced to the ileocolonic anastomosis. The colonoscopy was performed with ease. The patient tolerated the procedure well. The quality of the bowel preparation was adequate. The terminal ileum, ileocecal valve, appendiceal orifice, and rectum were photographed. Scope In: 1:17:45 PM Scope Out: 1:45:28 PM Total Procedure Duration Time 0 hours 27 minutes 43 seconds Findings: The perianal and digital rectal examinations were normal. Non-bleeding internal hemorrhoids were found during retroflexion. The hemorrhoids were Grade III (internal hemorrhoids that prolapse but require manual reduction). A 5 mm anal fissure was found in the anal canal. Multiple small and large-mouthed diverticula were found in the recto-sigmoid colon and sigmoid colon. There was evidence of a prior end-to-end ileo-colonic anastomosis in the ascending colon. This was patent and was characterized by a hemorrhagic appearance, ulceration and an intact staple line. The anastomosis was traversed. Area was successfully injected with 10 mL of a 0.1 mg/mL solution of epinephrine for drug delivery. Coagulation for hemostasis using heater probe was successful. Estimated blood loss was minimal. Discontinuous areas of nonbleeding ulcerated mucosa with no stigmata of recent bleeding were present in the ascending colon. Coagulation for bleeding prevention using heater probe was successful. Estimated blood loss was minimal. A localized area of severely friable mucosa with spontaneous bleeding was found at the anastomosis. For hemostasis, three hemostatic clips were successfully placed. 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 There was no bleeding at the end of the procedure. The terminal ileum appeared normal. Impression: - Non-bleeding internal hemorrhoids. - Anal fissure. - Diverticulosis in the recto-sigmoid colon and in the sigmoid colon. - Patent end-to-end ileo-colonic anastomosis, characterized by a hemorrhagic appearance, ulceration and an intact staple line. Injected. Treated with a heater probe. - Mucosal ulceration. Treated with a heater probe. - Friability with spontaneous bleeding at the colonic anastomosis. Clips were placed. 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 - The examined portion of the ileum was normal. - No specimens collected. Recommendation: - [facility]. - Resume previous diet. - Continue present medications. - Repeat colonoscopy in 1 year to assess disease activity. Procedure Code(s): --- Professional --- 47187, Colonoscopy, flexible; with control of bleeding, any method 33321, 59, Colonoscopy, flexible; with directed submucosal injection(s), any substance CPT copyright 2021 [employer]. All rights reserved. The codes documented in this report are preliminary and upon professional fee coder review may be revised to meet current compliance requirements. Ari Silvestre DO 11/20/2024 7:56:55 AM This report has been signed electronically. Number of Addenda: 0 Note Initiated On: 11/19/2024 1:03 PM 11/20/24 0757 Date _ Ari Silvestre DO Cosigner Signature: Date (if indicated) CC: MARYAM Olson; Ari Silvestre DO ~ Date Dictated: 11/19/24 1303 Date Transcribed: Database Analyst: RF Signed [facility]04-22-2025 Procedure note [facility] Medical Records Department [address] [place] [address] Operative Report - CC Letter MR#: [id number] Acct: [id number] Name: JARED RAYMOND Rep #:[id number] : 1945 79 From: Ari Silvestre DO PCP: MARYAM Guerra Status:ADM IN 11/20/2024 Maryam Guerra Re : Colonoscopy procedure for Jared Raymond Dear Shahram This procedure was performed on Tuesday, November 19, 2024. My impressions and recommendations are as follows: Impressions : - Non-bleeding internal hemorrhoids. - Anal fissure. - Diverticulosis in the recto-sigmoid colon and in the sigmoid colon. - Patent end-to-end ileo-colonic anastomosis, characterized by a hemorrhagic appearance, ulceration and an intact staple line. Injected. Treated with a heater probe. - Mucosal ulceration. Treated with a heater probe. - Friability with spontaneous bleeding at the colonic anastomosis. Clips were placed. 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 - The examined portion of the ileum was normal. - No specimens collected. Recommendations : - [facility] for [facility]. - Resume previous diet. - Continue present medications. - Repeat colonoscopy in 1 year to assess disease activity. My findings are described in the full procedure note, which is enclosed. If I can be of further assistance, please feel free to contact me at . Sincerely, Ari Silvestre DO 11/20/2024 7:56:55 AM This report has been signed electronically. 11/20/24 0757 Date _ Ari Silvestre DO Cosigner Signature: Date (if indicated) CC: MARYAM Olson; Dr. Neville Jang DO; Dr. Kelvin Schrader MD ~ Date Dictated: 11/19/24 1303 Date Transcribed: Database Analyst: RF Signed [facility]04-21-2025 Progress note Author Neville Jang [facility] Note Date/Time November 19, 2024 6:2 0pm [facility] Medical Records Department [address] [place] [address] Progress Note - Hospitalist 11/19/246 MR#: [id number] Acct: [id number] Name: JARED RAYMOND Rep #:[id number] : 1945 79 From: Neville Jang DO PCP: MARYAM Guerra Status:ADM IN Location: [facility] [id number] Reason for Visit Reason for Visit: Diagnoses Gastrointestinal hemorrhage, unspecified (11/18/24) Subjective Subjective Patient was seen and examined today, his hemoglobin this morning was 10.9, he isdue to undergo endoscopy today. Objective Data Objective Data Vital Signs: Vital Signs Temp Pulse Resp BP Pulse Ox O2 Del Method 98.3 F 66 18 156/82 H 97 Room Air 11/19/24 14:29 11/19/24 14:29 11/19/24 14:29 11/19/24 14:29 11/19/24 14:29 11/19/24 14:29 Oxygen Delivery Method Room Air Weight: 68.946 kg Body Mass Index (BMI) 23.4 Intake & Output: Intake and Output for Last 24 Hours 11/17/24 11/18/24 11/19/24 23:59 23:59 23:59 Intake Total 1800 / 1800 600 / 600 Balance 1800 / 1800 600 / 600 Medical Nutrition Assessment Dietitian: Malnutrition Criteria Met Start: 11/19/24 12:52 Freq: Status: Active Protocol: Document 11/19/24 12:52 SLA (Rec: 11/19/24 12:52 SLA 10.10.25.7) Nutrition Malnutrition Evidence of Yes Malnutrition Exists Malnutrition (severe Acute Illness/Injury ): Evidenced By Suboptimal Energy Intake (Severe),Weight Loss (Severe) Clinical Problem Acute Disease or Injury Related Malnutrition Etiology related to flu and diarrhea w/ inadequate energy intake Signs/Symptoms as evidenced by 5.1% unplanned wt loss and po intake meeting <50% of estimated nutritional needs x 2 wkspta Status Active Problem Recommendation Dietitian As medically able, rec STACIE to liberal regular d/t signs Recommendations/ and symptoms of malnutrition Changes As medically able, rec ONS w/ meals or medpass if pt agreeable - does not want Ensure products, but doesnot want to talk about alternative ONS at this time. Lab / Micro Data 11/19/24 03:53 11/19/24 03:53 Labs: Laboratory Results - last 24 hr 11/19/24 03:53: WBC 8.4, RBC 3.59 L, Hgb 10.9 L, Hct 32.0 L, MCV 89.1, MCH 30.4,MCHC 34.1, RDW Std Deviation 41.0, RDW Coeff of Deepika 12.5, Plt Count 353, MPV 9.2, Immature Gran % (Auto) 0.400, Neut % (Auto) 73.3 H, Lymph % (Auto) 14.2 L, Josephine % (Auto) 10.0, Eos % (Auto) 1.9, Baso % (Auto) 0.2, Absolute Neuts (auto) 6.2, Absolute Lymphs (auto) 1.20, Nucleated RBC % 0, Sodium 132 L, Potassium 4.0, Chloride 99, Carbon Dioxide 21.0, Anion Gap 12, BUN 10, Creatinine 0.95, Estim Creat Clear Calc 57.98, Est GFR (MDRD) Non-Af 81, BUN/Creatinine Ratio 10.4, Glucose 99, Calcium 8.8 Physical Exam Const alert, oriented x3, no apparent distress and average body habitus General Appearance: cooperative, well kempt and well developed Orientation / Consciousness: awake, oriented to person, oriented to place and oriented to time HEENT normocephalic, head/scalp atraumatic and moist oral mucous membranes Eyes PERRL, EOMs intact bilaterally and conjunctivae normal Neck supple, no JVD, thyroid normal and no carotid bruits General: trachea midline Resp normal respiratory effort and clear to auscultation bilaterally Auscultation: Negative for rales, rhonchi or wheezes Cardio regular rate, regular rhythm, S1 normal heart sound, S2 normal heart sound, no murmurs, no rub and no gallops GI normal to inspection, nondistended, normoactive bowel sounds, soft to palpation,non-tender and non-distended Extremity no clubbing, cyanosis or edema Skin no rashes or lesions noted General Skin Exam: no breakdown Neuro oriented x3, CN's II-XII intact bilaterally, moves all extremities, no focal motor deficits and no sensory deficits noted Sensorium / Orientation: awake and alert Speech: speech normal Psych affect normal Assessment & Plan Assessment/Plan (1) Rectal bleeding: PLAN: Plan 1. Bright red rectal bleeding-etiology unclear, patient is being seen by gastroenterology and will undergo endoscopy. Patient's CBC will be monitored #2 acute anemia secondary to GI bleed-etiology unclear, patient's CBC will be monitored #3 essential hypertension-patient will remain on his home medications, blood pressure will be monitored Total clinical time spent by myself addressing the patient's medical issues, reviewing all of his data, and collaborating with patient's care team: 35 minutes Charges/Coding Visit Charges Inpatient E&M: 57508 Subs Hosp L2 11/19/24 1820 <Electronically signed by Neville Jang DO> Cosigner Signature (if applicable): CC: ~ Signed [facility] Work Phone: 1(397) 928-866304-21-2025 Progress note [facility] Medical Records Department [address] [place] [address] Progress Note - Hospitalist 11/19/24 181 MR#: [id number] Acct: [id number] Name: JARED RAYMOND Rep #:[id number] : 1945 79 From: Neville Jang DO PCP: MARYAM Guerra Status:ADM IN Location: [place] [address] Reason for Visit Reason for Visit: Diagnoses Gastrointestinal hemorrhage, unspecified (11/18/24) Subjective Subjective Patient was seen and examined today, his hemoglobin this morning was 10.9, he isdue to undergo endoscopy today. Objective Data Objective Data Vital Signs: Vital Signs Temp Pulse Resp BP Pulse Ox O2 Del Method 98.3 F 66 18 156/82 H 97 Room Air 11/19/24 14:29 11/19/24 14:29 11/19/24 14:29 11/19/24 14:29 11/19/24 14:29 11/19/24 14:29 Oxygen Delivery Method Room Air Weight: 68.946 kg Body Mass Index (BMI) 23.4 Intake & Output: Intake and Output for Last 24 Hours 11/17/24 11/18/24 11/19/24 23:59 23:59 23:59 Intake Total 1800 / 1800 600 / 600 Balance 1800 / 1800 600 / 600 Medical Nutrition Assessment Dietitian: Malnutrition Criteria Met Start: 11/19/24 12:52 Freq: Status: Active Protocol: Document 11/19/24 12:52 SLA (Rec: 11/19/24 12:52 SLA [email or web address]) Nutrition Malnutrition Evidence of Yes Malnutrition Exists Malnutrition (severe Acute Illness/Injury ): Evidenced By Suboptimal Energy Intake (Severe),Weight Loss (Severe) Clinical Problem Acute Disease or Injury Related Malnutrition Etiology related to flu and diarrhea w/ inadequate energy intake Signs/Symptoms as evidenced by 5.1% unplanned wt loss and po intake meeting <50% of estimated nutritional needs x 2 wkspta Status Active Problem Recommendation Dietitian As medically able, rec STACIE to liberal regular d/t signs Recommendations/ and symptoms of malnutrition Changes As medically able, rec ONS w/ meals or medpass if pt agreeable - does not want Ensure products, but doesnot want to talk about alternative ONS at this time. Lab / Micro Data 11/19/24 03:53 11/19/24 03:53 Labs: Laboratory Results - last 24 hr 11/19/24 03:53: WBC 8.4, RBC 3.59 L, Hgb 10.9 L, Hct 32.0 L, MCV 89.1, MCH 30.4,MCHC 34.1, RDW Std Deviation 41.0, RDW Coeff of Deepika 12.5, Plt Count 353, MPV 9.2, Immature Gran % (Auto) 0.400, Neut % (Auto) 73.3 H, Lymph % (Auto) 14.2 L, Josephine % (Auto) 10.0, Eos % (Auto) 1.9, Baso % (Auto) 0.2, Absolute Neuts (auto) 6.2, Absolute Lymphs (auto) 1.20, Nucleated RBC % 0, Sodium 132 L, Potassium 4.0, Chloride 99, Carbon Dioxide 21.0, Anion Gap 12, BUN 10, Creatinine 0.95, Estim Creat Clear Calc 57.98, Est GFR (MDRD) Non-Af 81, BUN/Creatinine Ratio 10.4, Glucose 99, Calcium 8.8 Physical Exam Const alert, oriented x3, no apparent distress and average body habitus General Appearance: cooperative, well kempt and well developed Orientation / Consciousness: awake, oriented to person, oriented to place and oriented to time HEENT normocephalic, head/scalp atraumatic and moist oral mucous membranes Eyes PERRL, EOMs intact bilaterally and conjunctivae normal Neck supple, no JVD, thyroid normal and no carotid bruits General: trachea midline Resp normal respiratory effort and clear to auscultation bilaterally Auscultation: Negative for rales, rhonchi or wheezes Cardio regular rate, regular rhythm, S1 normal heart sound, S2 normal heart sound, no murmurs, no rub and no gallops GI normal to inspection, nondistended, normoactive bowel sounds, soft to palpation,non-tender and non-distended Extremity no clubbing, cyanosis or edema Skin no rashes or lesions noted General Skin Exam: no breakdown Neuro oriented x3, CN's II-XII intact bilaterally, moves all extremities, no focal motor deficits and no sensory deficits noted Sensorium / Orientation: awake and alert Speech: speech normal Psych affect normal Assessment & Plan Assessment/Plan (1) Rectal bleeding: PLAN: Plan 1. Bright red rectal bleeding-etiology unclear, patient is being seen by gastroenterology and will undergo endoscopy. Patient's CBC will be monitored #2 acute anemia secondary to GI bleed-etiology unclear, patient's CBC will be monitored #3 essential hypertension-patient will remain on his home medications, blood pressure will be monitored Total clinical time spent by myself addressing the patient's medical issues, reviewing all of his data, and collaborating with patient's care team: 35 minutes Charges/Coding Visit Charges Inpatient E&M: 77934 Subs Hosp L2 11/19/24 1820 Cosigner Signature (if applicable): CC: ~ Signed [facility]04-21-2025 Consult note Author Guerrero Miller [facility] Note Date/Time November 19, 2024 2:0 5pm [facility] Medical Records Department [address] [place] [address] Anesthesia Postop Eval I 11/19/24 1402 MR#: [id number] Acct: [id number] Name: CHRISJARED Kaitlin Rep #:[id number] : 1945 79 From: Guerrero Miller PCP: MARYAM Guerra Status:ADM IN Y Race: C Location: [place] [id number] -1 Anesthesia: Postop Eval I Current Vital Signs Temperature: 97 F Pulse Rate: 78 Blood Pressure: 116/66 Respiratory Rate: 16 Pulse Ox: 98 Oxygen Delivery Method: Room Air Assessment Airway patent: Yes Spontaneous unlabored respirations: Yes Mental status: Awake nausea: No Vomiting: No Anesthesia Complication: No Fluid Hydration Crystalloid volume administer (ml): 60 Total IV fluid infused: 60 Progress Note Anesthesia document: Postop Eval 1 completed: Yes 11/19/24 2621 <Electronically signed by Guerrero Miller > Date _ Guerrero Miller Rossiignbrant Signature: Date CC: ~ Signed [facility] Work Phone: 1(300) 269-463304-21-2025 Consult note Author Ari Friend [facility] Note Date/Time November 19, 2024 12: 58pm [facility] Medical Records Department [address] [place] [address] Consultation - GI 11/19/24 1256 MR#: [id number] Acct: [id number] Name: JARED RAYMOND Rep #:[id number] : 1945 79 From: Ari Silvestre DO PCP: MARYAM Guerra Status:ADM IN [facility] HPI Consult Data Date of Consult: 11/19/24 HPI Narrative Reason for Consultation: Lower GI bleed HPI Narrative: JARED RAYMOND, is a 79 M who presents for the evaluation of lower GI bleed. He has a past medical history of hypertension and colon cancer. He states that today he went to the bathroom and he had a large amount of bright red blood. Hestates that this has happened 2 or 3 times since 8 PM. He reports that with hisprevious bout of blood per rectum he needed emergent surgery and multiple units of blood. Patient denies any history of bleeding disorder or blood thinner use. He denies any known sick contact. He states there is been no chest pain shortness of breath or dizziness or syncope. However with the recurrent episodes of blood per rectum he presents for evaluation. He originally presented to [facility] ED on 04/11/2024 with c/o hematochezia and anemia. CTA of the chest abdomen and pelvis with IV contrast on 04/11/2024 showed mass in the ascending colon, multiple nonspecific enlarged mediastinal nodes. He had colonoscopy on 04/13/2024 which showed an ulcerated, partially obstructing mass at the hepatic flexure. He underwent laparoscopic right hemicolectomy on 04/27/2024. Pathology showed invasive adenocarcinoma, tumor extends to the bistroserosal surface, with lymphovascular and perineural invasion, no gross tumor deposits, lymph nodes 15 out of 16 positive, MSI stable. Pathologic staging pT4 pN2b. He was recently hospitalized with a colonoscopy that showed an ulceration at the anastomosis after his right hemicolectomy that was treated. He states that he noticed bright red blood per rectum this morning around 4 AM with a bowel movement as well as a little bit last night. Denies any lightheadedness or dizziness no other symptoms of anemia. On his last discharge his hemoglobin was11.9, today it is 10.3. 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 He previously has not wanted chemotherapy but wanted to investigate the possible use of ivermectin for treatment. 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 Chronic hypertension Acute alteration in mental status Neuropathy Vasectomy planned Hyponatremia TIA (transient ischemic attack) CVA (cerebral vascular accident) Hypertension History of stroke Tobacco use Benign essential hypertension Home Medications ?Medication ?Instructions ?Recorded ?Last Taken ?Type amlodipine 5 mg tablet 5 mg PO DAILY HEART 05/16/24 11/05/24 History clonidine HCl 0.1 mg tablet 0.1 mg PO DAILY PRN hbp 10/06/24 History ferrous sulfate 325 mg (65 mg 325 mg PO DAILY 30 days #60 tabs 06/10/24 11/05/24 Rx iron) tablet (Iron (ferrous sulfate)) metoprolol tartrate 50 mg tablet 25 mg PO QDAY Blood p ressure/heart 10/17/24 11/05/24 History rat oxycodone 5 mg tablet 5 mg PO Q6H PRN pain 7 days #28 10/24/24 Unknown Rx tabs Allergy/AdvReac Type Severity Reaction Status Date / Time fentanyl AdvReac Low blood Verified 11/06/24 03:59 pressure Family History Father Arthritis Alcohol abuse Mother Alcohol abuse Liver disease Surgical History History of hemicolectomy (04/25/24) H/O vasectomy S/P right hemicolectomy History of tonsillectomy History of appendectomy 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) Social History Smoking Status: Former smoker alcohol intake: never substance use type: does not use ROS Constitutional Constitutional: Denies fatigue, fever(s), poor appetite, weight gain or weight loss Gastrointestinal Gastrointestinal: Denies belching, bloating, change in bowel habits, change in stool character, chewing difficulty, coffee ground emesis, constipation, cramping, diarrhea, dyspepsia, dysphagia, early satiety, excessive flatus, fecalincontinence, heartburn, hematemesis, hematochezia, hemorrhoids, loose stools, melena, nausea, odynophagia, rectal bleeding, tenesmus, vomiting or weight changes Physical Exam Const alert, oriented x3, no apparent distress and healthy appearing General Appearance: cooperative GI normal to inspection, nondistended, normoactive bowel sounds, soft to palpation,non-tender and non-distended Percussion: normal to percussion Rectal Exam: deferred Medical Records Data Medical Nutrition Assessment Dietitian: Malnutrition Criteria Met Start: 11/19/24 12:52 Freq: Status: Active Protocol: Document 11/19/24 12:52 KERVIN (Rec: 11/19/24 12:52 SLA [id number]) Nutrition Malnutrition Evidence of Yes Malnutrition Exists Malnutrition (severe Acute Illness/Injury ): Evidenced By Suboptimal Energy Intake (Severe),Weight Loss (Severe) Clinical Problem Acute Disease or Injury Related Malnutrition Etiology related to flu and diarrhea w/ inadequate energy intake Signs/Symptoms as evidenced by 5.1% unplanned wt loss and po intake meeting <50% of estimated nutritional needs x 2 wkspta Status Active Problem Recommendation Dietitian As medically able, rec STACIE to liberal regular d/t signs Recommendations/ and symptoms of malnutrition Changes As medically able, rec ONS w/ meals or medpass if pt agreeable - does not want Ensure products, but doesnot want to talk about alternative ONS at this time. Lab / Micro Data 11/19/24 03:53 11/19/24 03:53 Labs: Laboratory Results - last 24 hr 11/19/24 03:53: WBC 8.4, RBC 3.59 L, Hgb 10.9 L, Hct 32.0 L, MCV 89.1, MCH 30.4,MCHC 34.1, RDW Std Deviation 41.0, RDW Coeff of Deepika 12.5, Plt Count 353, MPV 9.2, Immature Gran % (Auto) 0.400, Neut % (Auto) 73.3 H, Lymph % (Auto) 14.2 L, Josephine % (Auto) 10.0, Eos % (Auto) 1.9, Baso % (Auto) 0.2, Absolute Neuts (auto) 6.2, Absolute Lymphs (auto) 1.20, Nucleated RBC % 0, Sodium 132 L, Potassium 4.0, Chloride 99, Carbon Dioxide 21.0, Anion Gap 12, BUN 10, Creatinine 0.95, Estim Creat Clear Calc 57.98, Est GFR (MDRD) Non-Af 81, BUN/Creatinine Ratio 10.4, Glucose 99, Calcium 8.8 Assessment & Plan Assessment/Plan (1) GI (gastrointestinal bleed): QUALIFIERS: GI bleed type/associated pathology: unspecified gastrointestinal hemorrhage type Qualified Code(s): K92.2 - Gastrointestinal hemorrhage, unspecified PLAN: Hg stable. GI on consult. CTA A/P no obvious source of bleeding. Suspect lower source Follow up CBC. PLAN: Plan An 79 yo with h/o 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: He had a Right colon cancer, s/p right hemicolectomy. Pathologic stage pT4 PN2b. Prognostic stage IIIC. CT chest, abdomen and pelvis shows multiple nonspecific mediastinal lymph nodes, hypodensity in the liver. PET/CT on 05/29/2024 showed Hypermetabolic activities in subcarinal node, R hilar node, liver and LE/GEJ area. Biopsy of esophagus and stomach were negative. Biopsy of mediastinal nodes were negative. He declined chemotherapy was suggested. Comes for follow up, CT on 10/24/2024 shows metastatic disease in peritoneum and Liver. Does not chemotherapy. He comes in for repeat lower GI bleeding. He previously underwent a flexible sigmoidoscopy. He will undergo colonoscopy. Charges/Coding Visit Charges Inpatient E&M: 35602 Init Hosp L3 11/19/24 2337 <Electronically signed by Ari Friend DO> Cosigner Signature (if applicable): CC: CITY ASSESSOR-C Mariela Olson; Dr. Kelvin Schrader MD~ Signed [facility] Work Phone: 1(674) 273-834404-21-2025 Consult note [facility] Medical Records Department [address] [place] [address] Anesthesia Postop Eval I 11/19/24 1402 MR#: [id number] Acct: [id number] Name: JARED RAYMOND Rep #:[id number] : 1945 79 From: Guerrero Miller PCP: MARYAM Guerra Status:ADM IN Y Race: C [facility] -1 Anesthesia: Postop Eval I Current Vital Signs Temperature: 97 F Pulse Rate: 78 Blood Pressure: 116/66 Respiratory Rate: 16 Pulse Ox: 98 Oxygen Delivery Method: Room Air Assessment Airway patent: Yes Spontaneous unlabored respirations: Yes Mental status: Awake nausea: No Vomiting: No Anesthesia Complication: No Fluid Hydration Crystalloid volume administer (ml): 60 Total IV fluid infused: 60 Progress Note Anesthesia document: Postop Eval 1 completed: Yes 11/19/24 1405 > Date _ Guerrero Vela Signature: Date CC: ~ Signed [facility]04-21-2025 Consult note Author Steven Ann [facility] Note Date/Time November 19, 2024 12: 03pm [facility] Medical Records Department [address] [place] [address] Pre-Anesthesia Evaluation 11/19/24 1202 MR#: [id number] Acct: [id number] Name: JARED RAYMOND Rep #:[id number] : 1945 79 From: Steven Ann MD PCP: Mariela Olson, CITY ASSESSOR-C Status:ADM IN Y Race: C Location: [place] [address] ASA Classification* ASA Classification ASA Classification: 3 Assessment & Plan Anesthesia* Anesthesia Assessment Anesthesia Assessment: Discussed sedation and/or anesthesia options, risks, benefits, and alternatives with patient/parents/legal guardian/POA. Questions invited. The patient/parents/legal guardian/POA seems to understand and agrees to proceedwith anesthesia plan. Reviewed the physical assessment, medical history, allergy history and patient home medications list prior to surgery/procedure/anesthetic and documented any changes. Performed airway and anesthesia risk assessments. Anesthesia Type Anesthesia Type: MAC Anesthesia Focused Assessment* Temperature: 98.1 F Pulse Rate: 72 Blood Pressure: 146/70 Respiratory Rate: 18 Pulse Ox: 97 Airway Assessment Mouth opens: >3 cm Mallampati Score: II Focused Labs Anesthesia Preop lab: CBC WBC 8.4 K/mm3 (4.4-11.0) 11/19/24 03:53 11/19/24 RBC 3.59 M/mm3 (4.6-6.2) L 11/19/24 03:53 11/19/24 Hgb 10.9 g/dL (13.0-16.5) L 11/19/24 03:53 5 Hct 32.0 % (40-54) L 11/19/24 03:53 11/19/24 Plt Count 353 K/mm3 (150-450) 11/19/24 03:53 11/19/24 CHEMISTRY Potassium 4.0 mmol/L (3.3-5.1) 11/19/24 03:53 11/19/24 Sodium 132 mmol/L (133-145) L 11/19/24 03:53 11/19/24 Magnesium 2.3 mg/dL (1.5-2.2) H 11/05/24 22:42 11/05/24 Phosphorus 2.6 mg/dL (2.7-4.5) L 11/06/24 04:23 11/06/24 BUN 10 mg/dL (4-19) 11/19/24 03:53 11/19/24 Creatinine 0.95 mg/dL (0.70-1.20) 11/19/24 03:53 11/19/24 Glucose 99 mg/dL (70-99) 11/19/24 03:53 11/19/24 POC Glucose 113 mg/dL (74-106) H 04/27/24 06:06 04/27/24 TSH 1.900 uIU/mL (0.300-4.200) 11/06/24 04:23 0403/25 COAG PT 12.2 SECONDS (11.7-14.9) 11/05/24 22:42 Pre-Assessment Diagnosis/Proposed Procedure Planned Operative Procedure(s): colonoscopy Anesthesia History Anesthesia History - manager immunology: Anesthesia History - manager immunology Hx Hospitalization Yes: 06/09/24 BIOPSY OF LIVER 06/13/24 10:56 , TOXIC SHOCK- PASSED OUT Any Problems With Anesthesia No 11/18/24 21:04 Cholinesterase deficiency No 11/18/24 21:04 You/Your Family Experience No 11/18/24 21:04 fever (hyperthermia) with Relationship Recent Exposure to Contagious No 11/18/24 21:04 Disease Does patient have nerve No 11/18/24 21:04 stimulator Patient instructed to have No 11/18/24 21:04 device shut off --Does patient have Pacemaker No 11/19/24 08:57 or ICD? When Was Last Pacemaker Check QUESTION #4 FULL TEXT: You/Your Family Experience fever (hyperthermia) with Anesthesia Last Oral Intake Last Oral intake: Last Oral Intake NPO since 00:00 11/19/24 08:57 Meds taken in AM with sips of Yes 11/19/24 08:57 water? Meds patient instructed to bp med 11/19/24 08:57 take am of surgery PONV PONV - manager immunology: PONV - manager immunology Female HX of Motion Sickness HX of N/V After Surgery Non-Smoker Duration of Surgery greater than 60 minutes Number of Risk Factors PONV Score Height & Weight Height & Weight: Anesthesia: Height & Weight Height 5 ft 7.5 in 11/19/24 08:57 Weight: 68.946 kg 11/19/24 08:57 Body Mass Index (BMI) 23.4 11/19/24 08:57 Respiratory Assessment Respiratory Assessment - manager immunology: Respiratory Tract Infection Hx - manager immunology Hx Respiratory Tract Infection No 11/18/24 21:04 STOP Sleep Apnea STOP Sleep Apnea - manager immunology: STOP Sleep Apnea - manager immunology Hx Hypertension Yes 11/18/24 15:46 Hx Sleep Apnea No 11/18/24 15:46 CPAP No 11/18/24 15:46 BIPAP No 11/18/24 15:46 Do you snore loudly (louder No 11/18/24 15:46 than talking or can be heard Do you often feel tired/ No 11/18/24 15:46 fatigued/ sleepy during daytime? Has anyone observed you stop No 11/18/24 15:46 breathing during sleep? STOP Results Negative 11/18/24 15:46 QUESTION #5 FULL TEXT : Do you snore loudly (louder than talking or can be heard through closed doors)? 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 Specify any problems Hx of Preganancy in last 3 N/A 11/18/24 15:46 Months Nurse Filling Out Transfusion TWOLF 11/18/24 15:46 & Questions: Date: 11/18/24 11/18/24 15:46 Time: 15:49 11/18/24 15:46 Patient unable to answer at this time (ie. confused, unrespo /Reproduction History /Reproductive History - manager immunology: /Reproductive Hx- manager immunology Hx Now No 11/18/24 21:04 Gestational Age (in weeks): EDC: Hx Hx Para Hx Section SAB No 11/07/24 03:37 Active Medications Active Medications: Current Medications Generic Name Dose Route Start Last Admin Trade Name Freq PRN Reason Stop Dose Admin Amlodipine Besylate 5 mg 11/19/24 10:00 11/19/24 09:06 Amlodipine 5 Mg Tablet PO 5 mg DAILY EVITA Administration Protocol Clonidine 0.1 mg 11/18/24 16:30 Clonidine Hcl 0.1 Mg Tablet PO DAILY PRN hbp Protocol Ferrous Sulfate 325 mg 11/19/24 12:00 11/19/24 11:06 Ferrous Sulfate 325 Mg Tablet PO Not Given DAILY@1200 EVITA Sodium Chloride 100 mls @ 15 mls/hr 11/18/24 15:55 IV .Q6H40M PRN Saline Flush Sodium Chloride 100 mls @ 15 mls/hr 11/18/24 15:55 IV .Q6H40M PRN Additional IVPB Infusion Metoprolol Tartrate 25 mg 11/19/24 10:00 11/19/24 09:06 Metoprolol Tartrate 25 Mg Tablet PO 25 mg DAILY EVITA Administration Protocol Simethicone 80 mg 11/18/24 18:00 11/19/24 08:30 Simethicone 80 Mg Chewable Tablet PO Not Given PCHS EVITA Sodium Chloride 10 - 40 ml 11/18/24 15:55 0.9% Saline Lock 10 Ml Syringe IV UD PRN SALINE FLUSH PFSH Medical History Diverticulosis Mediastinal lymphadenopathy 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 Encounter for education Pre-op testing Wears dentures Arthritis Anemia Gastric reflux Former smoker History of edema History of echocardiogram History of stress test Cardiology follow-up encounter Aortic stenosis Preop cardiovascular exam Colon cancer Overweight (BMI 25.0-29.9) Colonic mass Coronary artery disease 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 Chronic hypertension Acute alteration in mental status Neuropathy Vasectomy planned Hyponatremia TIA (transient ischemic attack) CVA (cerebral vascular accident) Hypertension History of stroke Tobacco use Benign essential hypertension Home Medications ?Medication ?Instructions ?Recorded ?Last Taken ?Type amlodipine 5 mg tablet 5 mg PO DAILY HEART 05/16/24 11/05/24 History clonidine HCl 0.1 mg tablet 0.1 mg PO DAILY PRN hbp 10/06/24 History ferrous sulfate 325 mg (65 mg 325 mg PO DAILY 30 days #60 tabs 06/10/24 11/05/24 Rx iron) tablet (Iron (ferrous sulfate)) metoprolol tartrate 50 mg tablet 25 mg PO QDAY Blood p ressure/heart 10/17/24 11/05/24 History rat oxycodone 5 mg tablet 5 mg PO Q6H PRN pain 7 days #28 10/24/24 Unknown Rx tabs Allergy/AdvReac Type Severity Reaction Status Date / Time fentanyl AdvReac Low blood Verified 11/06/24 03:59 pressure Family History Father Arthritis Alcohol abuse Mother Alcohol abuse Liver disease Surgical History History of hemicolectomy (04/25/24) H/O vasectomy S/P right hemicolectomy History of tonsillectomy History of appendectomy 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 11/19/24 1203 <Electronically signed by Steven Ann MD > Date _ Steven Ann MD Cosigner Signature: Date CC: ~ Signed [facility] Work Phone: [phone] 666-724204-21-2025 Consult note [facility] Medical Records Department [address] [place] [address] Consultation - GI 11/19/24 1256 MR#: [id number] Acct: [id number] Name: JARED RAYMOND Rep #:[id number] : 1945 79 From: Ari Friend DO PCP: Mariela Olson CITY ASSESSORJoseC Status:ADM IN Location: [facility] [id number] HPI Consult Data Date of Consult: 11/19/24 HPI Narrative Reason for Consultation: Lower GI bleed HPI Narrative: JARED RAYMOND, is a 79 M who presents for the evaluation of lower GI bleed. He has a past medical history of hypertension and colon cancer. He states that today he went to the bathroom and he had a large amount of bright red blood. Hestates that this has happened 2 or 3 times since 8 PM. He reportsthat with hisprevious bout of blood per rectum he needed emergent surgery and multiple units of blood. Patient denies any history of bleeding disorder or blood thinner use. He denies any known sick contact. He states there is been no chest pain shortness of breath or dizziness or syncope. However with the recurrent episodes of blood per rectum he presents for evaluation. He originally presented to [facility] ED on 04/11/2024 with c/o hematochezia and anemia. CTA of the chest abdomen and pelvis with IV contrast on 04/11/2024 showed mass in the ascending colon, multiple nonspecific enlarged mediastinal nodes. He had colonoscopy on 04/13/2024 which showed an ulcerated, partially obstructing mass at the hepatic flexure. He underwent laparoscopic right hemicolectomy on 04/27/2024. Pathology showed invasive adenocarcinoma, tumor extends to the bistroserosal surface, with lymphovascular and perineural invasion, no gross tumor deposits, lymph nodes 15 out of 16 positive, MSI stable. Pathologic staging pT4 pN2b. He was recently hospitalized with a colonoscopy that showed an ulceration at the anastomosis after his right hemicolectomy that was treated. He states that he noticed bright red blood per rectum thismorning around 4 AM with a bowel movement as well as a little bit last night. Denies any lightheadedness or dizziness no other symptoms of anemia. On his last discharge his hemoglobin was11.9, today it is 10.3. 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 He previously has not wanted chemotherapy but wanted to investigate the possible use of ivermectin for treatment. 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 Chronic hypertension Acute alteration in mental status Neuropathy Vasectomy planned Hyponatremia TIA (transient ischemic attack) CVA (cerebral vascular accident) Hypertension History of stroke Tobacco use Benign essential hypertension Home Medications ?Medication ?Instructions ?Recorded ?Last Taken ?Type amlodipine 5 mg tablet 5 mg PO DAILY HEART 05/16/24 11/05/24 History clonidine HCl 0.1 mg tablet 0.1 mg PO DAILY PRN hbp 10/06/24 History ferrous sulfate 325 mg (65 mg 325 mg PO DAILY 30 days #60 tabs 06/10/24 11/05/24 Rx iron) tablet (Iron (ferrous sulfate)) metoprolol tartrate 50 mg tablet 25 mg PO QDAY Blood p ressure/heart 10/17/24 11/05/24 History rat oxycodone 5 mg tablet 5 mg PO Q6H PRN pain 7 days #28 10/24/24 Unknown Rx tabs Allergy/AdvReac Type Severity Reaction Status Date / Time fentanyl AdvReac Low blood Verified 11/06/24 03:59 pressure Family History Father Arthritis Alcohol abuse Mother Alcohol abuse Liver disease Surgical History History of hemicolectomy (04/25/24) H/O vasectomy S/P right hemicolectomy History of tonsillectomy History of appendectomy 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) Social History Smoking Status: Former smoker alcohol intake: never substance use type: does not use ROS Constitutional Constitutional: Denies fatigue, fever(s), poor appetite, weight gain or weight loss Gastrointestinal Gastrointestinal: Denies belching, bloating, change in bowel habits, change in stool character, chewing difficulty, coffee ground emesis, constipation, cramping, diarrhea, dyspepsia, dysphagia, earlysatiety, excessive flatus, fecalincontinence, heartburn, hematemesis, hematochezia, hemorrhoids, loose stools, melena, nausea, odynophagia, rectal bleeding, tenesmus, vomiting or weight changes Physical Exam Const alert, oriented x3, no apparent distress and healthy appearing General Appearance: cooperative GI normal to inspection, nondistended, normoactive bowel sounds, soft to palpation,non-tender and non-distended Percussion: normal to percussion Rectal Exam: deferred Medical Records Data Medical Nutrition Assessment Dietitian: Malnutrition Criteria Met Start: 11/19/24 12:52 Freq: Status: Active Protocol: Document 11/19/24 12:52 SLA (Rec: 11/19/24 12:52 SLA [id number]) Nutrition Malnutrition Evidence of Yes Malnutrition Exists Malnutrition (severe Acute Illness/Injury ): Evidenced By Suboptimal Energy Intake (Severe),Weight Loss (Severe) Clinical Problem Acute Disease or Injury Related Malnutrition Etiology related to flu and diarrhea w/ inadequate energy intake Signs/Symptoms as evidenced by 5.1% unplanned wt loss and po intake meeting <50% of estimated nutritional needs x 2 wkspta Status Active Problem Recommendation Dietitian As medically able, rec STACIE to liberal regular d/t signs Recommendations/ and symptoms of malnutrition Changes As medically able, rec ONS w/ meals or medpass if pt agreeable - does not want Ensure products, but doesnot want to talk about alternative ONS at this time. Lab / Micro Data 11/19/24 03:53 11/19/24 03:53 Labs: Laboratory Results - last 24 hr 11/19/24 03:53: WBC 8.4, RBC 3.59 L, Hgb 10.9 L, Hct 32.0 L, MCV 89.1, MCH 30.4,MCHC 34.1, RDW Std Deviation 41.0, RDW Coeff of Deepika 12.5, Plt Count 353, MPV 9.2, Immature Gran % (Auto) 0.400, Neut % (Auto) 73.3 H, Lymph % (Auto) 14.2 L, Josephine % (Auto) 10.0, Eos % (Auto) 1.9, Baso % (Auto) 0.2, Absolute Neuts (auto) 6.2, Absolute Lymphs (auto) 1.20, Nucleated RBC % 0, Sodium 132 L, Potassium 4.0, Chloride 99, Carbon Dioxide 21.0, Anion Gap 12, BUN 10, Creatinine 0.95, Estim Creat Clear Calc 57.98, Est GFR (MDRD) Non-Af 81, BUN/Creatinine Ratio 10.4, Glucose 99, Calcium 8.8 Assessment & Plan Assessment/Plan (1) GI (gastrointestinal bleed): QUALIFIERS: GI bleed type/associated pathology: unspecified gastrointestinal hemorrhage type Qualified Code(s): K92.2 - Gastrointestinal hemorrhage, unspecified PLAN: Hg stable. GI on consult. CTA A/P no obvious source of bleeding. Suspect lower source Follow up CBC. PLAN: Plan An 79 yo with h/o 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: He had a Right colon cancer, s/p right hemicolectomy. Pathologic stage pT4 PN2b. Prognostic stage IIIC. CT chest, abdomen and pelvis shows multiple nonspecific mediastinal lymph nodes, hypodensity in the liver. PET/CT on 05/29/2024 showed Hypermetabolic activities in subcarinal node, R hilar node, liver and LE/GEJ area. Biopsy of esophagus and stomach were negative. Biopsy of mediastinal nodes were negative. He declined chemotherapy was suggested. Comes for follow up, CT on 10/24/2024 shows metastatic disease in peritoneum and Liver. Does not chemotherapy. He comes in for repeat lower GI bleeding. He previously underwent a flexible sigmoidoscopy. He will undergo colonoscopy. Charges/Coding Visit Charges Inpatient E&M: 84326 Init Hosp L3 11/19/24 1258 Cosigner Signature (if applicable): CC: CITY ASSESSOR-C Mariela Olson; Dr. Kelvin Schrader MD~ Signed [facility]04-21-2025 Consult note [facility] Medical Records Department [address] [place] [address] Pre-Anesthesia Evaluation 11/19/24 1202 MR#: [id number] Acct: [id number] Name: JARED RAYMOND Rep #:[id number] : 1945 79 From: Steven Ann MD PCP: MARYAM Guerra Status:ADM IN Y Race: C Location: MA3 [id number] ASA Classification* ASA Classification ASA Classification: 3 Assessment & Plan Anesthesia* Anesthesia Assessment Anesthesia Assessment: Discussed sedation and/or anesthesia options, risks, benefits, and alternatives with patient/parents/legal guardian/POA. Questions invited. The patient/parents/legal guardian/POA seems to understand and agrees to proceedwith anesthesia plan. Reviewed the physical assessment, medical history, allergy history and patient home medications list prior to surgery/procedure/anesthetic and documented any changes. Performed airway and anesthesia risk assessments. Anesthesia Type Anesthesia Type: MAC Anesthesia Focused Assessment* Temperature: 98.1 F Pulse Rate: 72 Blood Pressure: 146/70 Respiratory Rate: 18 Pulse Ox: 97 Airway Assessment Mouth opens: >3 cm Mallampati Score: II Focused Labs Anesthesia Preop lab: CBC WBC 8.4 K/mm3 (4.4-11.0) 11/19/24 03:53 11/19/24 RBC 3.59 M/mm3 (4.6-6.2) L 11/19/24 03:53 11/19/24 Hgb 10.9 g/dL (13.0-16.5) L 11/19/24 03:53 5 Hct 32.0 % (40-54) L 11/19/24 03:53 11/19/24 Plt Count 353 K/mm3 (150-450) 11/19/24 03:53 11/19/24 CHEMISTRY Potassium 4.0 mmol/L (3.3-5.1) 11/19/24 03:53 11/19/24 Sodium 132 mmol/L (133-145) L 11/19/24 03:53 11/19/24 Magnesium 2.3 mg/dL (1.5-2.2) H 11/05/24 22:42 11/05/24 Phosphorus 2.6 mg/dL (2.7-4.5) L 11/06/24 04:23 11/06/24 BUN 10 mg/dL (4-19) 11/19/24 03:53 11/19/24 Creatinine 0.95 mg/dL (0.70-1.20) 11/19/24 03:53 11/19/24 Glucose 99 mg/dL (70-99) 11/19/24 03:53 11/19/24 POC Glucose 113 mg/dL (74-106) H 04/27/24 06:06 04/27/24 TSH 1.900 uIU/mL (0.300-4.200) 11/06/24 04:23 04/03/25 COAG PT 12.2 SECONDS (11.7-14.9) 11/05/24 22:42 Pre-Assessment Diagnosis/Proposed Procedure Planned Operative Procedure(s): colonoscopy Anesthesia History Anesthesia History - manager immunology: Anesthesia History - manager immunology Hx Hospitalization Yes: 06/09/24 BIOPSY OF LIVER 06/13/24 10:56 , TOXIC SHOCK- PASSED OUT Any Problems With Anesthesia No 11/18/24 21:04 Cholinesterase deficiency No 11/18/24 21:04 You/Your Family Experience No 11/18/24 21:04 fever (hyperthermia) with Relationship Recent Exposure to Contagious No 11/18/24 21:04 Disease Does patient have nerve No 11/18/24 21:04 stimulator Patient instructed to have No 11/18/24 21:04 device shut off --Does patient have Pacemaker No 11/19/24 08:57 or ICD? When Was Last Pacemaker Check QUESTION #4 FULL TEXT: You/Your Family Experience fever (hyperthermia) with Anesthesia Last Oral Intake Last Oral intake: Last Oral Intake NPO since 00:00 11/19/24 08:57 Meds taken in AM with sips of Yes 11/19/24 08:57 water? Meds patient instructed to bp med 11/19/24 08:57 take am of surgery PONV PONV - manager immunology: PONV - manager immunology Female HX of Motion Sickness HX of N/V After Surgery Non-Smoker Duration of Surgery greater than 60 minutes Number of Risk Factors PONV Score Height & Weight Height & Weight: Anesthesia: Height & Weight Height 5 ft 7.5 in 11/19/24 08:57 Weight: 68.946 kg 11/19/24 08:57 Body Mass Index (BMI) 23.4 11/19/24 08:57 Respiratory Assessment Respiratory Assessment - manager immunology: Respiratory Tract Infection Hx - manager immunology Hx Respiratory Tract Infection No 11/18/24 21:04 STOP Sleep Apnea STOP Sleep Apnea - manager immunology: STOP Sleep Apnea - manager immunology Hx Hypertension Yes 11/18/24 15:46 Hx Sleep Apnea No 11/18/24 15:46 CPAP No 11/18/24 15:46 BIPAP No 11/18/24 15:46 Do you snore loudly (louder No 11/18/24 15:46 than talking or can be heard Do you often feel tired/ No 11/18/24 15:46 fatigued/ sleepy during daytime? Has anyone observed you stop No 11/18/24 15:46 breathing during sleep? STOP Results Negative 11/18/24 15:46 QUESTION #5 FULL TEXT : Do you snore loudly (louder than talking or can be heard through closeddoors)? 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 Specify any problems Hx of Preganancy in last 3 N/A 11/18/24 15:46 Months Nurse Filling Out Transfusion TWOLF 11/18/24 15:46 & Questions: Date: 11/18/24 11/18/24 15:46 Time: 15:49 11/18/24 15:46 Patient unable to answer at this time (ie. confused, unrespo /Reproduction History /Reproductive History - manager immunology: /Reproductive Hx- manager immunology Hx Now No 11/18/24 21:04 Gestational Age (in weeks): EDC: Hx Hx Para Hx Section SAB No 11/07/24 03:37 Active Medications Active Medications: Current Medications Generic Name Dose Route Start Last Admin Trade Name Freq PRN Reason Stop Dose Admin Amlodipine Besylate 5 mg 11/19/24 10:00 11/19/24 09:06 Amlodipine 5 Mg Tablet PO 5 mg DAILY EVITA Administration Protocol Clonidine 0.1 mg 11/18/24 16:30 Clonidine Hcl 0.1 Mg Tablet PO DAILY PRN hbp Protocol Ferrous Sulfate 325 mg 11/19/24 12:00 11/19/24 11:06 Ferrous Sulfate 325 Mg Tablet PO Not Given DAILY@1200 EVITA Sodium Chloride 100 mls @ 15 mls/hr 11/18/24 15:55 IV .Q6H40M PRN Saline Flush Sodium Chloride 100 mls @ 15 mls/hr 11/18/24 15:55 IV .Q6H40M PRN Additional IVPB Infusion Metoprolol Tartrate 25 mg 11/19/24 10:00 11/19/24 09:06 Metoprolol Tartrate 25 Mg Tablet PO 25 mg DAILY EVITA Administration Protocol Simethicone 80 mg 11/18/24 18:00 11/19/24 08:30 Simethicone 80 Mg Chewable Tablet PO Not Given PCHS EVITA Sodium Chloride 10 - 40 ml 11/18/24 15:55 0.9% Saline Lock 10 Ml Syringe IV UD PRN SALINE FLUSH PFSH Medical History Diverticulosis Mediastinal lymphadenopathy 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 Encounter for education Pre-op testing Wears dentures Arthritis Anemia Gastric reflux Former smoker History of edema History of echocardiogram History of stress test Cardiology follow-up encounter Aortic stenosis Preop cardiovascular exam Colon cancer Overweight (BMI 25.0-29.9) Colonic mass Coronary artery disease 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 Chronic hypertension Acute alteration in mental status Neuropathy Vasectomy planned Hyponatremia TIA (transient ischemic attack) CVA (cerebral vascular accident) Hypertension History of stroke Tobacco use Benign essential hypertension Home Medications ?Medication ?Instructions ?Recorded ?Last Taken ?Type amlodipine 5 mg tablet 5 mg PO DAILY HEART 05/16/24 11/05/24 History clonidine HCl 0.1 mg tablet 0.1 mg PO DAILY PRN hbp 10/06/24 History ferrous sulfate 325 mg (65 mg 325 mg PO DAILY 30 days #60 tabs 06/10/24 11/05/24 Rx iron) tablet (Iron (ferrous sulfate)) metoprolol tartrate 50 mg tablet 25 mg PO QDAY Blood p ressure/heart 10/17/24 11/05/24 History rat oxycodone 5 mg tablet 5 mg PO Q6H PRN pain 7 days #28 10/24/24 Unknown Rx tabs Allergy/AdvReac Type Severity Reaction Status Date / Time fentanyl AdvReac Low blood Verified 11/06/24 03:59 pressure Family History Father Arthritis Alcohol abuse Mother Alcohol abuse Liver disease Surgical History History of hemicolectomy (04/25/24) H/O vasectomy S/P right hemicolectomy History of tonsillectomy History of appendectomy 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 11/19/24 1203 > Date _ Steven Ann MD Cosigner Signature: Date CC: ~ Signed [facility]04-20-2025 History and physical note Author Kelvin Schrader [facility] Note Date/Time November 18, 2024 4:0 6pm [facility] Medical Records Department [address] [place] [address] H&P Exam - Hospitalist 11/18/24 1335 MR#: [id number] Acct: [id number] Name: JARED RAYMOND Rep #:[id number] : 1945 79 From: Kelvin rojas MD PCP: MARYAM Guerra Status:ADM IN Location: [facility] [place] [id number] HPI - General General Date of Admission: 11/18/24 HPI Narrative JARED RAYMOND, is a 79 M who presents to the hospital with lower GI bleed. He was recently hospitalized with a colonoscopy that showed an ulceration at the anastomosis after his right hemicolectomy that was treated. He states that he noticed bright red blood per rectum this morning around 4 AM with a bowel movement as well as a little bit last night. Denies any lightheadedness or dizziness no other symptoms of anemia. On his last discharge his hemoglobin was11.9, today it is 10.3. 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 He previously has not wanted chemotherapy but wanted to investigate the possible use of ivermectin for treatment. He does seem more open today with the possibility of proceeding with chemotherapy. 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 Chronic hypertension Acute alteration in mental status Neuropathy Vasectomy planned Hyponatremia TIA (transient ischemic attack) CVA (cerebral vascular accident) Hypertension History of stroke Tobacco use Benign essential hypertension Home Medications ?Medication ?Instructions ?Recorded ?Last Taken ?Type amlodipine 5 mg tablet 5 mg PO DAILY HEART 05/16/24 11/05/24 History clonidine HCl 0.1 mg tablet 0.1 mg PO DAILY PRN hbp 10/06/24 History ferrous sulfate 325 mg (65 mg 325 mg PO DAILY 30 days #60 tabs 06/10/24 11/05/24 Rx iron) tablet (Iron (ferrous sulfate)) metoprolol tartrate 50 mg tablet 25 mg PO QDAY Blood p ressure/heart 10/17/24 11/05/24 History rat oxycodone 5 mg tablet 5 mg PO Q6H PRN pain 7 days #28 10/24/24 Unknown Rx tabs Allergy/AdvReac Type Severity Reaction Status Date / Time fentanyl AdvReac Low blood Verified 11/06/24 03:59 pressure Family History Father Arthritis Alcohol abuse Mother Alcohol abuse Liver disease Surgical History History of hemicolectomy (04/25/24) H/O vasectomy S/P right hemicolectomy History of tonsillectomy History of appendectomy 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) Social History Smoking Status: Former smoker alcohol intake: never substance use type: does not use ROS Constitutional Constitutional: Denies chills, fatigue, fever(s) or malaise Eyes Eyes: Denies blurry vision ENT HEENT: Denies headache(s) or nasal discharge Cardiovascular Cardiovascular: Denies chest pain, dyspnea on exertion or syncope Respiratory/Chest Respiratory/Chest: Denies cough, shortness of breath at rest or shortness of breath with exertion Gastrointestinal Gastrointestinal: Reports abdominal pain, hematochezia and melena; Denies constipation, diarrhea, nausea or vomiting Genitourinary Genitourinary: Denies dysuria Neurologic Neurologic: Denies focal weakness, numbness or tremor(s) Psychiatric Psychiatric: Denies anxiety or depression Vital Signs Vital Signs Vital Signs: 11/18/24 09:56 04/20/25 12:00 11/18/24 13:14 Temperature 97.8 F Temperature Source Oral Pulse Rate 76 63 64 Respiratory Rate 16 17 15 Blood Pressure 156/83 H 185/73 H 186/86 H Blood Pressure Mean 107 110 119 Pulse Ox 100 98 99 Oxygen Delivery Method Room Air Room Air Weight Weight: 153 lb Body Mass Index (BMI) 23.9 Physical Exam Narrative General: Alert, Oriented x3, Cooperative, No apparent distress HEENT: Atraumatic, PERRLA, EOMI, Normocephalic Oral: Moist Mucosa Neck: Supple, No JVD Lungs: Clear to auscultation, Normal air movement, No rhonchi, No wheeze, No rales Cardiovascular: Regular rate, Regular Rhythm, Normal S1, Normal S2, GUMARO Abdomen: Soft, Non Tender, Non-Distended, No Hepato-splenomegaly Extremities: No edema, Capillary Refill Less than 3 Seconds Skin: No rashes, No breakdown Musculoskeletal: No Tenderness to Palpation of Joints or Extremities Neurological: No focal neurological deficits, moves all extremities Psych/Mental Status: Normal Affect, Appropriate Results Lab / Micro Data 11/18/24 10:20 11/18/24 10:20 Labs: Laboratory Results - last 24 hr 11/18/24 10:20: WBC 7.9, RBC 3.34 L, Hgb 10.3 L, Hct 29.1 L, MCV 87.1, MCH 30.8,MCHC 35.4, RDW Std Deviation 39.8, RDW Coeff of Deepika 12.4, Plt Count 333, MPV 8.6, Immature Gran % (Auto) 0.400, Neut % (Auto) 71.9 H, Lymph % (Auto) 14.4 L, Josephine % (Auto) 11.2 H, Eos % (Auto) 1.8, Baso % (Auto) 0.3, Absolute Neuts (auto)5.7, Absolute Lymphs (auto) 1.14, Nucleated RBC % 0, Sodium 130 L, Potassium 4.1, Chloride 95 L, Carbon Dioxide 24.0, Anion Gap 11, BUN 14, Creatinine 1.02, Estim Creat Clear Calc 54.00, Est GFR (MDRD) Non-Af 74, BUN/Creatinine Ratio 13.7, Glucose 104 H, Calcium 8.9 11/18/24 11:56: Blood Type O POSITIVE, Antibody Screen NEGATIVE Imaging Radiology Impression Abdomen/Pelvis CT 11/18/24 10:50 IMPRESSION: 1. No acute abdominopelvic finding. 2. Prior colonic resection and anastomosis with findings of abdominopelvic metastatic disease, including hepatic, diffuse maggie, retroperitoneal/omental and mesenteric metastatic disease. 3. 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 Reading Location: [facility] Assessment & Plan Assessment/Plan (1) GI bleed: PLAN: Plan 1. Recurrent lower GI bleed with acute blood loss anemia in the setting of metastatic colon cancer status post hemicolectomy with anastomosis with a recentanastomotic bleed/iron deficiency anemia ? Clear liquid diet ? Will do a colon prep ? Will consult GI for repeat scope ? Will repeat H&H in the morning ? He has chosen to not pursue chemotherapy though per our discussion during his admission ? Continue with iron replacement ? Given the findings of metastatic colon cancer to we had a 20-minute discussionadvance care planning including prognosis of stage IV colon cancer as well as the options including hospice and palliative care versus pursuing chemotherapy. 2. Essential HTN/CAD status post CABG ? Continue with his home blood pressure medications ? Will monitor and make adjustments as necessary ? She is not on a statin even though he probably should be on 1 he does have a history of noncompliance DVT: SCDs 55 minutes was spent on direct patient care, including documentation as well as chart review and collaboration with colleagues Charges/Coding Multi Select Codes Visit Charges Visit Charges: 31753 Init Hosp L2 Hospitalists' Procedures Procedures: 79159 Advncd Care Plan 30 Min 11/18/24 1606 <Electronically signed by Kelvin Schrader MD> Cosigner Signature (if applicable): CC: MARYAM Olson; Dr. Kelvin Schrader MD~ Signed [facility] Work Phone: [phone] Discharge summary Author Radha Damon [facility] Note Date/Time November 18, 2024 2:5 3pm [facility] Medical Records Department [address] [place] [id number] Emergency Department Summary 11/18/24 MR#: [id number] Acct: [id number] Name: JARED RAYMOND Rep #:[id number] : 1945 79 From: Radha [place] PCP: MARYAM Guerra Status:ADM IN Location: MA3 [id number] HPI <ONDINA Govea - Last Filed: 11/18/24 14:05> HPI - GI History of Present Illness Chief Complaint: GI Bleed Narrative Narrative: Patient presenting today due to an episode of bright red blood per rectum he noticed around 4 AM today when having a bowel movement. He has a history of metastatic colon cancer following with Dr. Hernandez. He declined chemotherapy. He has a history of a right hemicolectomy. He was recently admitted about a week and a half ago due to rectal bleeding and had a colonoscopy performed by Dr. Silvestre. He had an ulceration at the anastamosis site of his partial colectomy that was clipped and he was ultimately discharged home. He is taking an iron supplement and reports that since starting that he has had dark-colored stools. He reports frequent abdominal cramping when having bowel movements. He denies any fevers, chills, or vomiting. 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 Chronic hypertension Acute alteration in mental status Neuropathy Vasectomy planned Hyponatremia TIA (transient ischemic attack) CVA (cerebral vascular accident) Hypertension History of stroke Tobacco use Benign essential hypertension Home Medications ?Medication ?Instructions ?Recorded ?Last Taken ?Type amlodipine 5 mg tablet 5 mg PO DAILY HEART 05/16/24 11/05/24 History clonidine HCl 0.1 mg tablet 0.1 mg PO DAILY PRN hbp 10/06/24 History ferrous sulfate 325 mg (65 mg 325 mg PO DAILY 30 days #60 tabs 06/10/24 11/05/24 Rx iron) tablet (Iron (ferrous sulfate)) metoprolol tartrate 50 mg tablet 25 mg PO QDAY Blood p ressure/heart 10/17/24 11/05/24 History rat oxycodone 5 mg tablet 5 mg PO Q6H PRN pain 7 days #28 10/24/24 Unknown Rx tabs Allergy/AdvReac Type Severity Reaction Status Date / Time fentanyl AdvReac Low blood Verified 11/06/24 03:59 pressure Family History Father Arthritis Alcohol abuse Mother Alcohol abuse Liver disease Surgical History History of hemicolectomy (04/25/24) H/O vasectomy S/P right hemicolectomy History of tonsillectomy History of appendectomy 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) Social History Smoking Status: Former smoker alcohol intake: never substance use type: does not use ROS <ONDINA Govea - Last Filed: 11/18/24 14:05> ROS ED Constitutional Constitutional ED: Denies chills or fever(s) Cardiovascular Cardiovascular: Denies chest pain Respiratory/Chest Respiratory/Chest: Denies dyspnea Gastrointestinal Gastrointestinal: Reports hematochezia; Denies abdominal pain, nausea or vomiting Genitourinary Genitourinary ED: Denies dysuria, hematuria or urinary urgency Musculoskeletal Musculoskeletal: Denies arthralgias or myalgias Neurologic Neurologic: Denies weakness EXAM <ONDINA Govea - Last Filed: 11/18/24 14:05> Physical Exam Const Vital Signs: 11/18/24 09:56 11/18/24 12:00 Temperature 97.8 F Temperature Source Oral Pulse Rate 76 63 Respiratory Rate 16 17 Blood Pressure 156/83 H 185/73 H Blood Pressure Mean 107 110 Pulse Ox 100 98 Oxygen Delivery Method Room Air Positive well nourished, well developed and no apparent distress General Appearance ED: well developed HEENT Reports normocephalic and head/scalp atraumatic Mouth ED: Yes moist mucous membranes normal Eyes PERRL and EOMs intact bilaterally Neck full ROM and supple Chest Wall inspection of chest normal Resp normal respiratory effort and clear to auscultation bilaterally Cardio regular rate and regular rhythm GI soft to palpation, non-tender, non-distended and no masses Back/Spine normal ROM and normal to inspection Extremity normal to inspection and full ROM Neuro oriented x3, CN's II-XII intact bilaterally, moves all extremities, no focal motor deficits and no sensory deficits noted Sensorium / Orientation: awake and alert Psych mental status grossly normal and thought process normal Skin no rashes or lesions noted and no wounds <Dr. Lazaro Sharp MD - Last Filed: 11/18/24 14:53> Physical Exam Const Vital Signs: 11/18/24 09:56 11/18/24 12:00 Temperature 97.8 F Temperature Source Oral Pulse Rate 76 63 Respiratory Rate 16 17 Blood Pressure 156/83 H 185/73 H Blood Pressure Mean 107 110 Pulse Ox 100 98 Oxygen Delivery Method Room Air MDM <ONDINA Govea - Last Filed: 11/18/24 14:05> [facility] MDM Narrative Medical decision making narrative: Patient presenting today due to concerns for bloody bowel movements he had earlier this morning. He reports that he has been having dark-colored stools since starting his iron supplement. He has a history of metastatic colon cancer. Patient does not appear to understand the severity of his diagnosis, heis under the impression that his cancer is under control and that there are no active cancerous lesions. He was recently here about a week and a half ago for rectal bleeding, he had a colonoscopy performed by Dr. Silvestre. It was found that he had an ulceration at the anastomosis site of his partial colectomy, thiswas clipped. He reports chronic lower abdominal pain especially when having bowel movements. He reports that his bowels have been loose and watery. Rectalexam was performed by the attending physician, he had a significant amount of maroon-colored stool. His hemoglobin has dropped about a gram and a half in thepast 11 days. No leukocytosis. Sodium slightly low at 130. CT scan of the abdomen pelvis with IV contrast shows no acute findings, does suggest metastaticdisease. I do feel he would benefit from readmission to the hospital. He will be admitted in stable condition. I have personally performed a face to face assessment of the patient and have reviewed the ODILON Note. I performed a substantive portion of the visit including all aspects of the following. My braun findings include: History is limited due to the fact the patient is a poor informant does not understand the extent of his disease process. Dr. Papi Hernandez's office note wasreviewed. Patient at this point is declined chemotherapy. He has stage IIIc cancer. Patient reports blood in his stool. He believes he may have had blood 3 days ago. He states his eyesight is poor and reason he is uncertain. He does complain of bilateral lower quadrant pain. Achy crampy like pain. He does not feel bloated. He had no vomiting. He is not on an anticoagulant. He is on iron. He is taking the iron tablets. He states his stool is dark. Exam is vital signs are marked for an elevated blood pressure. He appears slightly pale. Conjunctive is slightly pink. Trachea is midline. Lungs are clear to auscultation. Heart is regular. There is no murmur, gallop or rub. Rate is normal. Abdomen is slightly tympanitic. Tenderness both right and leftlower quadrant. No evidence of inguinal hernia. Rectal exam reveals evidence of prior hemorrhoids. There is brown blood near the anus. Anoscopy was performed. Patient had significant amount of brown-maroon watery diarrhea. Unable to determine if the anal/distal sigmoid mucosa is abnormal because of theamount of stool. Medical Decision Making the patient having pain bloody diarrhea need to evaluatefor ischemic colitis, versus infectious versus inflammatory. Will obtain appropriate blood work and CT. Patient and his were told he will need to be admitted. Other additions or changes: [None] Lab Data Labs: Laboratory Results - last 24 hr 11/18/24 11/18/24 10:20 11:56 WBC 7.9 RBC 3.34 L Hgb 10.3 L Hct 29.1 L MCV 87.1 MCH 30.8 MCHC 35.4 RDW Std Deviation 39.8 RDW Coeff of Deepika 12.4 Plt Count 333 MPV 8.6 Immature Gran % (Auto) 0.400 Neut % (Auto) 71.9 H Lymph % (Auto) 14.4 L Josephine % (Auto) 11.2 H Eos % (Auto) 1.8 Baso % (Auto) 0.3 Absolute Neuts (auto) 5.7 Absolute Lymphs (auto) 1.14 Nucleated RBC % 0 Sodium 130 L Potassium 4.1 Chloride 95 L Carbon Dioxide 24.0 Anion Gap 11 BUN 14 Creatinine 1.02 Estim Creat Clear Calc 54.00 Est GFR (MDRD) Non-Af 74 BUN/Creatinine Ratio 13.7 Glucose 104 H Calcium 8.9 Blood Type O POSITIVE Antibody Screen NEGATIVE Radiography Diagnostic Testing: Clinical Impression(s) from Imaging Studies Abdomen/Pelvis CT 11/18/24 10:50 IMPRESSION: 1. No acute abdominopelvic finding. 2. Prior colonic resection and anastomosis with findings of abdominopelvic metastatic disease, including hepatic, diffuse maggie, retroperitoneal/omental and mesenteric metastatic disease. 3. 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 Reading Location: [id number] <Dr. Lazaro Sharp MD - Last Filed: 11/18/24 14:53> [facility] Narrative Medical decision making narrative: ulceration at the anastamosis site of you prior partial colectomy that was the cause of your bleeding. Dr. Silvestre was able to place a clip to stop the bleeding. I have personally performed a face to face assessment of the patient and have reviewed the ODILON Note. I performed a substantive portion of the visit including all aspects of the following. My braun findings include: History is limited due to the fact the patient is a poor informant does not understand the extent of his disease process. Dr. Papi Hernandez's office note was reviewed. Patient at this point is declined chemotherapy. He has stage IIIc cancer. Patient reports blood in his stool. He believes he may have had blood 3 days ago. He states his eyesight is poor and reason he is uncertain. He does complain of bilateral lower quadrant pain. Achy crampy like pain. He does not feel bloated. He had no vomiting. He is not on an anticoagulant. He is on iron. He is taking the iron tablets. He states his stool is dark. Exam is vital signs are marked for an elevated blood pressure. He appears slightly pale. Conjunctive is slightly pink. Trachea is midline. Lungs are clear to auscultation. Heart is regular. There is no murmur, gallop or rub. Rate is normal. Abdomen is slightly tympanitic. Tenderness both right and left lower quadrant. No evidence of inguinal hernia. Rectal exam reveals evidence of prior hemorrhoids. There is brown blood near the anus. Anoscopy was performed. Patient had significant amount of brown-maroon watery diarrhea. Unable to determine if the anal/distal sigmoid mucosa is abnormal because of the amount of stool. Medical Decision Making the patient having pain bloody diarrhea need to evaluate for ischemic colitis, versus infectious versus inflammatory. Will obtain appropriate blood work and CT. Patient and his were told he will need to be admitted. Other additions or changes: [None] Lab Data Attestation: I reviewed the patient's lab results. Lab results narrative: White count is normal. There is a slight shift. H&H is 10.3 and 29.1 with normal indices. This represents a 1.5 g drop from November 07. In light of this patient was typed and screened. Labs: Laboratory Results - last 24 hr 11/18/24 11/18/24 10:20 11:56 WBC 7.9 RBC 3.34 L Hgb 10.3 L Hct 29.1 L MCV 87.1 MCH 30.8 MCHC 35.4 RDW Std Deviation 39.8 RDW Coeff of Deepika 12.4 Plt Count 333 MPV 8.6 Immature Gran % (Auto) 0.400 Neut % (Auto) 71.9 H Lymph % (Auto) 14.4 L Josephine % (Auto) 11.2 H Eos % (Auto) 1.8 Baso % (Auto) 0.3 Absolute Neuts (auto) 5.7 Absolute Lymphs (auto) 1.14 Nucleated RBC % 0 Sodium 130 L Potassium 4.1 Chloride 95 L Carbon Dioxide 24.0 Anion Gap 11 BUN 14 Creatinine 1.02 Estim Creat Clear Calc 54.00 Est GFR (MDRD) Non-Af 74 BUN/Creatinine Ratio 13.7 Glucose 104 H Calcium 8.9 Blood Type O POSITIVE Antibody Screen NEGATIVE Radiography Diagnostic Testing: Clinical Impression(s) from Imaging Studies Abdomen/Pelvis CT 11/18/24 10:50 IMPRESSION: 1. No acute abdominopelvic finding. 2. Prior colonic resection and anastomosis with findings of abdominopelvic metastatic disease, including hepatic, diffuse maggie, retroperitoneal/omental and mesenteric metastatic disease. 3. 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 Reading Location: [facility] CT of the abdomen pelvis was reviewed by me at 1111. Patient is known to have mets to his liver. There is evidence of diverticulosis. There appears to be some inflammation of the small bowel. There is no evidence of abscess. There is no evidence of pneumoperitoneum. Bladder is distended. Awaiting formal read by radiologist. Management Discussion w/another healthcare provider: Hospitalist (Hospitalist, Dr. Kelvin Schrader was made aware of patient and admit to [facility]) Procedures <Dr. Lazaro Sharp MD - Last Filed: 11/18/24 14:53> Other Procedures Procedure(s): Anoscopy was performed. Anoscopy was limited due to the amount of profuse bloody diarrhea. There was evidence of external prior hemorrhoids. There was no evidence of bleeding hemorrhoids. Prostate slightly enlarged. There is no hardness or irregularity to the prostate. Discharge Plan Dx/Rx/DC Orders Clinical Impression: Colon cancer, Rectal bleeding, Coronary artery disease, Bloody diarrhea, Anemia due to blood loss, Elevated blood pressure reading with diagnosis of hypertension Disposition Disposition: Acute Care Hospital [facility] What to do if you have Problems For any increased pain, shortness of breath, bleeding, nausea or vomiting, chest pain, or any unexpected problems, contact your Primary Care Provider. Call [facility] ([phone]) or report to the closest Emergency Room. Call 911 if necessary. 11/18/24 1405 <Electronically signed by Radha [place]> Cosigner Signature (if applicable): 11/18/24 1453 <Electronically signed by Lazaro Sharp MD> CC: MARYAM Olson ~ Signed [facility] Work Phone: [phone] History and physical note [facility] Medical Records Department [address] [place] [address] H&P Exam - Hospitalist 11/18/24 1335 MR#: [id number] Acct: [id number] Name: JARED RAYMOND Rep #:[id number] : 1945 79 From: Kelvin rojas MD PCP: Mariela Shahram, [facility] Status:ADM IN Location: MS3 SG473-0 HPI - General General Date of Admission: 11/18/24 HPI Narrative JARED RAYMOND, is a 79 M who presents to the hospital with lower GI bleed. He was recently hospitalized with a colonoscopy that showed an ulceration at the anastomosis after his right hemicolectomy that was treated. He states that he noticed bright red blood per rectum this morning around 4 AM witha bowel movement as well as a little bit last night. Denies any lightheadedness or dizziness no other symptoms of anemia. On his last discharge his hemoglobin was11.9, today it is 10.3. 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 He previously has not wanted chemotherapy but wanted to investigate the possibleuse of ivermectin for treatment. He does seem more open today with the possibility of proceeding with chemotherapy. 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 Chronic hypertension Acute alteration in mental status Neuropathy Vasectomy planned Hyponatremia TIA (transient ischemic attack) CVA (cerebral vascular accident) Hypertension History of stroke Tobacco use Benign essential hypertension Home Medications ?Medication ?Instructions ?Recorded ?Last Taken ?Type amlodipine 5 mg tablet 5 mg PO DAILY HEART 05/16/24 11/05/24 History clonidine HCl 0.1 mg tablet 0.1 mg PO DAILY PRN hbp 10/06/24 History ferrous sulfate 325 mg (65 mg 325 mg PO DAILY 30 days #60 tabs 06/10/24 11/05/24 Rx iron) tablet (Iron (ferrous sulfate)) metoprolol tartrate 50 mg tablet 25 mg PO QDAY Blood p ressure/heart 10/17/24 11/05/24 History rat oxycodone 5 mg tablet 5 mg PO Q6H PRN pain 7 days #28 03/26/25 Unknown Rx tabs Allergy/AdvReac Type Severity Reaction Status Date / Time fentanyl AdvReac Low blood Verified 11/06/24 03:59 pressure Family History Father Arthritis Alcohol abuse Mother Alcohol abuse Liver disease Surgical History History of hemicolectomy (04/25/24) H/O vasectomy S/P right hemicolectomy History of tonsillectomy History of appendectomy 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) Social History Smoking Status: Former smoker alcohol intake: never substance use type: does not use ROS Constitutional Constitutional: Denies chills, fatigue, fever(s) or malaise Eyes Eyes: Denies blurry vision ENT HEENT: Denies headache(s) or nasal discharge Cardiovascular Cardiovascular: Denies chest pain, dyspnea on exertion or syncope Respiratory/Chest Respiratory/Chest: Denies cough, shortness of breath at rest or shortness of breath with exertion Gastrointestinal Gastrointestinal: Reports abdominal pain, hematochezia and melena; Denies constipation, diarrhea, nausea or vomiting Genitourinary Genitourinary: Denies dysuria Neurologic Neurologic: Denies focal weakness, numbness or tremor(s) Psychiatric Psychiatric: Denies anxiety or depression Vital Signs Vital Signs Vital Signs: 11/18/24 09:56 11/18/24 12:00 11/18/24 13:14 Temperature 97.8 F Temperature Source Oral Pulse Rate 76 63 64 Respiratory Rate 16 17 15 Blood Pressure 156/83 H 185/73 H 186/86 H Blood Pressure Mean 107 110 119 Pulse Ox 100 98 99 Oxygen Delivery Method Room Air Room Air Weight Weight: 153 lb Body Mass Index (BMI) 23.9 Physical Exam Narrative General: Alert, Oriented x3, Cooperative, No apparent distress HEENT: Atraumatic, PERRLA, EOMI, Normocephalic Oral: Moist Mucosa Neck: Supple, No JVD Lungs: Clear to auscultation, Normal air movement, No rhonchi, No wheeze, No rales Cardiovascular: Regular rate, Regular Rhythm, Normal S1, Normal S2, GUMARO Abdomen: Soft, Non Tender, Non-Distended, No Hepato-splenomegaly Extremities: No edema, Capillary Refill Less than 3 Seconds Skin: No rashes, No breakdown Musculoskeletal: No Tenderness to Palpation of Joints or Extremities Neurological: No focal neurological deficits, moves all extremities Psych/Mental Status: Normal Affect, Appropriate Results Lab / Micro Data 11/18/24 10:20 11/18/24 10:20 Labs: Laboratory Results - last 24 hr 11/18/24 10:20: WBC 7.9, RBC 3.34 L, Hgb 10.3 L, Hct 29.1 L, MCV 87.1, MCH 30.8,MCHC 35.4, RDW Std Deviation 39.8, RDW Coeff of Deepika 12.4, Plt Count 333, MPV 8.6, Immature Gran % (Auto) 0.400, Neut % (Auto) 71.9 H, Lymph % (Auto) 14.4 L, Josephine % (Auto) 11.2 H, Eos % (Auto) 1.8, Baso % (Auto) 0.3, Absolute Neuts (auto)5.7, Absolute Lymphs (auto) 1.14, Nucleated RBC % 0, Sodium 130 L, Potassium 4.1, Chloride 95 L, Carbon Dioxide 24.0, Anion Gap 11, BUN 14, Creatinine 1.02, Estim Creat Clear Calc 54.00, Est GFR (MDRD) Non-Af 74, BUN/Creatinine Ratio 13.7, Glucose 104 H, Calcium 8.9 11/18/24 11:56: Blood Type O POSITIVE, Antibody Screen NEGATIVE Imaging Radiology Impression Abdomen/Pelvis CT 11/18/24 10:50 IMPRESSION: 1. No acute abdominopelvic finding. 2. Prior colonic resection and anastomosis with findings of abdominopelvic metastatic disease, including hepatic, diffuse maggie, retroperitoneal/omental and mesenteric metastatic disease. 3. 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 Reading Location: [facility] Assessment & Plan Assessment/Plan (1) GI bleed: PLAN: Plan 1. Recurrent lower GI bleed with acute blood loss anemia in the setting of metastatic colon cancer status post hemicolectomy with anastomosis with a recentanastomotic bleed/iron deficiency anemia ? Clear liquid diet ? Will do a colon prep ? Will consult GI for repeat scope ? Will repeat H&H in the morning ? He has chosen to not pursue chemotherapy though per our discussion during his admission ? Continue with iron replacement ? Given the findings of metastatic colon cancer to we had a 20-minute discussionadvance care planning including prognosis of stage IV colon cancer as well as the options including hospice and palliative care versus pursuing chemotherapy. 2. Essential HTN/CAD status post CABG ? Continue with his home blood pressure medications ? Will monitor and make adjustments as necessary ? She is not on a statin even though he probably should be on 1 he does have a history of noncompliance DVT: SCDs 55 minutes was spent on direct patient care, including documentation as well as chart review and collaboration with colleagues Charges/Coding Multi Select Codes Visit Charges Visit Charges: 34432 Init Hosp L2 Hospitalists' Procedures Procedures: 17337 Advncd Care Plan 30 Min 11/18/24 1606 Cosigner Signature (if applicable): CC: MARYAM Olson; Dr. Kelvin Schrader MD~ Signed [facility]04-20-2025 Discharge summary [facility] Medical Records Department [address] [place] [address] Emergency Department Summary 11/18/24 MR#: [id number] Acct: [id number] Name: JARED RAYMOND Rep #:[id number] : 1945 79 From: Radha [place] PCP: MARYAM Guerra Status:ADM IN Location: [place] [id number] HPI HPI - GI History of Present Illness Chief Complaint: GI Bleed Narrative Narrative: Patient presenting today due to an episode of bright red blood per rectum he noticed around 4 AM today when having a bowel movement. He has a history of metastatic colon cancer following with Dr. Hernandez. He declined chemotherapy. He has a history of a right hemicolectomy. He was recently admitted about a week and a half ago due to rectal bleeding and had a colonoscopy performed by Dr. Silvestre. He had an ulceration at the anastamosis site of his partial colectomy that was clipped and he was ultimately discharged home. He is taking an iron supplement and reports that since starting that he has haddark-colored stools. He reports frequent abdominal cramping when having bowel movements. He denies a ny fevers, chills, or vomiting. PFSH PFS Medical History Diverticulosis Mediastinal lymphadenopathy 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 Encounter for education Pre-op testing Wears dentures Arthritis Anemia Gastric reflux Former smoker History of edema History of echocardiogram History of stress test Cardiology follow-up encounter Aortic stenosis Preop cardiovascular exam Colon cancer Overweight (BMI 25.0-29.9) Colonic mass Coronary artery disease 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 Chronic hypertension Acute alteration in mental status Neuropathy Vasectomy planned Hyponatremia TIA (transient ischemic attack) CVA (cerebral vascular accident) Hypertension History of stroke Tobacco use Benign essential hypertension Home Medications ?Medication ?Instructions ?Recorded ?Last Taken ?Type amlodipine 5 mg tablet 5 mg PO DAILY HEART 05/16/24 11/05/24 History clonidine HCl 0.1 mg tablet 0.1 mg PO DAILY PRN hbp 10/06/24 History ferrous sulfate 325 mg (65 mg 325 mg PO DAILY 30 days #60 tabs 06/10/24 11/05/24 Rx iron) tablet (Iron (ferrous sulfate)) metoprolol tartrate 50 mg tablet 25 mg PO QDAY Blood p ressure/heart 10/17/24 11/05/24 History rat oxycodone 5 mg tablet 5 mg PO Q6H PRN pain 7 days #28 10/24/24 Unknown Rx tabs Allergy/AdvReac Type Severity Reaction Status Date / Time fentanyl AdvReac Low blood Verified 11/06/24 03:59 pressure Family History Father Arthritis Alcohol abuse Mother Alcohol abuse Liver disease Surgical History History of hemicolectomy (04/25/24) H/O vasectomy S/P right hemicolectomy History of tonsillectomy History of appendectomy 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) Social History Smoking Status: Former smoker alcohol intake: never substance use type: does not use ROS ROS ED Constitutional Constitutional ED: Denies chills or fever(s) Cardiovascular Cardiovascular: Denies chest pain Respiratory/Chest Respiratory/Chest: Denies dyspnea Gastrointestinal Gastrointestinal: Reports hematochezia; Denies abdominal pain, nausea or vomiting Genitourinary Genitourinary ED: Denies dysuria, hematuria or urinary urgency Musculoskeletal Musculoskeletal: Denies arthralgias or myalgias Neurologic Neurologic: Denies weakness EXAM Physical Exam Const Vital Signs: 11/18/24 09:56 11/18/24 12:00 Temperature 97.8 F Temperature Source Oral Pulse Rate 76 63 Respiratory Rate 16 17 Blood Pressure 156/83 H 185/73 H Blood Pressure Mean 107 110 Pulse Ox 100 98 Oxygen Delivery Method Room Air Positive well nourished, well developed and no apparent distress General Appearance ED: well developed HEENT Reports normocephalic and head/scalp atraumatic Mouth ED: Yes moist mucous membranes normal Eyes PERRL and EOMs intact bilaterally Neck full ROM and supple Chest Wall inspection of chest normal Resp normal respiratory effort and clear to auscultation bilaterally Cardio regular rate and regular rhythm GI soft to palpation, non-tender, non-distended and no masses Back/Spine normal ROM and normal to inspection Extremity normal to inspection and full ROM Neuro oriented x3, CN's II-XII intact bilaterally, moves all extremities, no focal motor deficits and no sensory deficits noted Sensorium / Orientation: awake and alert Psych mental status grossly normal and thought process normal Skin no rashes or lesions noted and no wounds Physical Exam Const Vital Signs: 11/18/24 09:56 11/18/24 12:00 Temperature 97.8 F Temperature Source Oral Pulse Rate 76 63 Respiratory Rate 16 17 Blood Pressure 156/83 H 185/73 H Blood Pressure Mean 107 110 Pulse Ox 100 98 Oxygen Delivery Method Room Air MDM MDM MDM Narrative Medical decision making narrative: Patient presenting today due to concerns for bloody bowel movements he had earlier this morning. Hereports that he has been having dark-colored stools since starting his iron supplement. He has a history of metastatic colon cancer. Patient does not appear to understand the severity of his diagnosis, heis under the impression that his cancer is under control and that there are no active cancerouslesions. He was recently here about a week and a half ago for rectal bleeding, he had a colonoscopyperformed by Dr. Silvestre. It was found that he had an ulceration at the anastomosis site of his partial colectomy, thiswas clipped. He reports chronic lower abdominal pain especially when having bowelmovements. He reports that his bowels have been loose and watery. Rectalexam was performed by the attending physician, he had a significant amount of maroon-colored stool. His hemoglobin has dropped about a gram and a half in thepast 11 days. No leukocytosis. Sodium slightly low at 130. CT scan of the abdomen pelvis with IV contrast shows no acute findings, does suggest metastaticdisease. I do feel he would benefit from readmission to the hospital. He will be admitted in stable condition. I have personally performed a face to face assessment of the patient and have reviewed the ODILON Note. I performed a substantive portion of the visit including all aspects of the following. My braun findings include: History is limited due to the fact the patient is a poor informant does not understand the extent of his disease process. Dr. Papi Hernandez's office note wasreviewed. Patient at this point is declined chemotherapy. He has stage IIIc cancer. Patient reports blood in his stool. He believes he may have had blood 3 days ago. He states his eyesight is poor and reason he is uncertain. He does complain of bilateral lower quadrant pain. Achy crampy like pain. He does not feel bloated. He had no vomiting. He is not on an anticoagulant. He is on iron. He is taking the iron tablets. He states his stool isdark. Exam is vital signs are marked for an elevated blood pressure. He appears slightly pale. Conjunctive is slightly pink. Trachea is midline. Lungs are clear to auscultation. Heart is regular. There is no murmur, gallop or rub. Rate is normal. Abdomen is slightly tympanitic. Tenderness both right and leftlower quadrant. No evidence of inguinal hernia. Rectal exam reveals evidence of prior hemorrhoids. There is brown blood near the anus. Anoscopy was performed. Patient had significant amount of brown-maroon watery diarrhea. Unable to determine if the anal/distal sigmoid mucosa is abnormal becauseof theamount of stool. Medical Decision Making the patient having pain bloody diarrhea need to evaluatefor ischemic colitis, versus infectious versus inflammatory. Will obtain appropriate blood work and CT. Patient and hiswife were told he will need to be admitted. Other additions or changes: [None] Lab Data Labs: Laboratory Results - last 24 hr 11/18/24 11/18/24 10:20 11:56 WBC 7.9 RBC 3.34 L Hgb 10.3 L Hct 29.1 L MCV 87.1 MCH 30.8 MCHC 35.4 RDW Std Deviation 39.8 RDW Coeff of Deepika 12.4 Plt Count 333 MPV 8.6 Immature Gran % (Auto) 0.400 Neut % (Auto) 71.9 H Lymph % (Auto) 14.4 L Josephine % (Auto) 11.2 H Eos % (Auto) 1.8 Baso % (Auto) 0.3 Absolute Neuts (auto) 5.7 Absolute Lymphs (auto) 1.14 Nucleated RBC % 0 Sodium 130 L Potassium 4.1 Chloride 95 L Carbon Dioxide 24.0 Anion Gap 11 BUN 14 Creatinine 1.02 Estim Creat Clear Calc 54.00 Est GFR (MDRD) Non-Af 74 BUN/Creatinine Ratio 13.7 Glucose 104 H Calcium 8.9 Blood Type O POSITIVE Antibody Screen NEGATIVE Radiography Diagnostic Testing: Clinical Impression(s) from Imaging Studies Abdomen/Pelvis CT 11/18/24 10:50 IMPRESSION: 1. No acute abdominopelvic finding. 2. Prior colonic resection and anastomosis with findings of abdominopelvic metastatic disease, including hepatic, diffuse maggie, retroperitoneal/omental and mesenteric metastatic disease. 3. 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 Reading Location: [facility] Narrative Medical decision making narrative: ulceration at the anastamosis site of you prior partial colectomy that was the cause of your bleeding. Dr. Silvestre was able to place a clip to stop the bleeding. I have personally performed a face to face assessment of the patient and have reviewed the ODILON Note. I performed a substantive portion of the visit including all aspects of the following. My braun findings include: History is limited due to the fact the patient is a poor informant does not understand the extent of his disease process. Dr. Papi Hernandez's office note was reviewed. Patient at this point is declinedchemotherapy. He has stage IIIc cancer. Patient reports blood in his stool. He believes he may have had blood 3 days ago. He states his eyesight is poor and reason he is uncertain. He does complain of bilateral lower quadrant pain. Achy crampy like pain. He does not feel bloated. He had no vomiting. He is not on an anticoagulant. He is on iron. He is taking the iron tablets. He states his stool isdark. Exam is vital signs are marked for an elevated blood pressure. He appears slightly pale. Conjunctive is slightly pink. Trachea is midline. Lungs are clear to auscultation. Heart is regular. There is no murmur, gallop or rub. Rate is normal. Abdomen is slightly tympanitic. Tenderness both right and left lower quadrant. No evidence of inguinal hernia. Rectal exam reveals evidence of prior hemorrhoids. There is brown blood near the anus. Anoscopy was performed. Patient had significant amount of brown-maroon watery diarrhea. Unable to determine if the anal/distal sigmoid mucosa is abnormal because of the amount of stool. Medical Decision Making the patient having pain bloody diarrhea need to evaluate for ischemic colitis, versus infectious versus inflammatory. Will obtain appropriate blood work and CT. Patient and his were told he will need to be admitted. Other additions or changes: [None] Lab Data Attestation: I reviewed the patient's lab results. Lab results narrative: White count is normal. There is a slight shift. H&H is 10.3 and 29.1 with normal indices. This represents a 1.5 g drop from November 07. In light of this patient was typed and screened. Labs: Laboratory Results - last 24 hr 11/18/24 11/18/24 10:20 11:56 WBC 7.9 RBC 3.34 L Hgb 10.3 L Hct 29.1 L MCV 87.1 MCH 30.8 MCHC 35.4 RDW Std Deviation 39.8 RDW Coeff of Deepika 12.4 Plt Count 333 MPV 8.6 Immature Gran % (Auto) 0.400 Neut % (Auto) 71.9 H Lymph % (Auto) 14.4 L Josephine % (Auto) 11.2 H Eos % (Auto) 1.8 Baso % (Auto) 0.3 Absolute Neuts (auto) 5.7 Absolute Lymphs (auto) 1.14 Nucleated RBC % 0 Sodium 130 L Potassium 4.1 Chloride 95 L Carbon Dioxide 24.0 Anion Gap 11 BUN 14 Creatinine 1.02 Estim Creat Clear Calc 54.00 Est GFR (MDRD) Non-Af 74 BUN/Creatinine Ratio 13.7 Glucose 104 H Calcium 8.9 Blood Type O POSITIVE Antibody Screen NEGATIVE Radiography Diagnostic Testing: Clinical Impression(s) from Imaging Studies Abdomen/Pelvis CT 11/18/24 10:50 IMPRESSION: 1. No acute abdominopelvic finding. 2. Prior colonic resection and anastomosis with findings of abdominopelvic metastatic disease, including hepatic, diffuse maggie, retroperitoneal/omental and mesenteric metastatic disease. 3. 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 Reading Location: [facility] CT of the abdomen pelvis was reviewed by me at 1111. Patient is known to have mets to his liver. There is evidence of diverticulosis. There appears to be some inflammation of the small bowel. There is no evidence of abscess. There is no evidence of pneumoperitoneum. Bladder is distended. Awaiting formal read by radiologist. Management Discussion w/another healthcare provider: Hospitalist (Hospitalist, Dr. Kelvin Schrader was made aware of patient and admit to [facility]) Procedures Other Procedures Procedure(s): Anoscopy was performed. Anoscopy was limited due to the amount of profuse bloody diarrhea. There was evidence of external prior hemorrhoids. There was no evidence of bleeding hemorrhoids. Prostate slightly enlarged. There is no hardness or irregularity to the prostate. Discharge Plan Dx/Rx/DC Orders Clinical Impression: Colon cancer, Rectal bleeding, Coronary artery disease, Bloody diarrhea, Anemia due to blood loss, Elevated blood pressure reading with diagnosis of hypertension Disposition Disposition: Acute Care Hospital [facility] What to do if you have Problems For any increased pain, shortness of breath, bleeding, nausea or vomiting, chest pain, or any unexpected problems, contact your Primary Care Provider. Call [facility] ([phone]) or report to the closest Emergency Room. Call 911 if necessary. 11/18/24 1405 Cosigner Signature (if applicable): 11/18/24 [id number] CC: MARYAM Olson ~ Signed [facility]04-20-2025 Discharge summary Author Radha Damon [facility] Note Date/Time November 18, 2024 2:5 3pm [facility] Medical Records Department [address] [place] [address] Emergency Department Summary 11/18/24 MR#: [id number] Acct: [id number] Name: JARED RAYMOND Rep #:[id number] : 1945 79 From: [place] PCP: MARYAM Guerra Status:ADM IN [id number] <ONDINA Govea - Last Filed: 11/18/24 14:05> HPI - GI History of Present Illness Chief Complaint: GI Bleed Narrative Narrative: Patient presenting today due to an episode of bright red blood per rectum he noticed around 4 AM today when having a bowel movement. He has a history of metastatic colon cancer following with Dr. Hernandez. He declined chemotherapy. He has a history of a right hemicolectomy. He was recently admitted about a week and a half ago due to rectal bleeding and had a colonoscopy performed by Dr. Silvestre. He had an ulceration at the anastamosis site of his partial colectomy that was clipped and he was ultimately discharged home. He is taking an iron supplement and reports that since starting that he has had dark-colored stools. He reports frequent abdominal cramping when having bowel movements. He denies any fevers, chills, or vomiting. 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 Chronic hypertension Acute alteration in mental status Neuropathy Vasectomy planned Hyponatremia TIA (transient ischemic attack) CVA (cerebral vascular accident) Hypertension History of stroke Tobacco use Benign essential hypertension Home Medications ?Medication ?Instructions ?Recorded ?Last Taken ?Type amlodipine 5 mg tablet 5 mg PO DAILY HEART 05/16/24 11/05/24 History clonidine HCl 0.1 mg tablet 0.1 mg PO DAILY PRN hbp 10/06/24 History ferrous sulfate 325 mg (65 mg 325 mg PO DAILY 30 days #60 tabs 06/10/24 11/05/24 Rx iron) tablet (Iron (ferrous sulfate)) metoprolol tartrate 50 mg tablet 25 mg PO QDAY Blood p ressure/heart 10/17/24 11/05/24 History rat oxycodone 5 mg tablet 5 mg PO Q6H PRN pain 7 days #28 10/24/24 Unknown Rx tabs Allergy/AdvReac Type Severity Reaction Status Date / Time fentanyl AdvReac Low blood Verified 11/06/24 03:59 pressure Family History Father Arthritis Alcohol abuse Mother Alcohol abuse Liver disease Surgical History History of hemicolectomy (04/25/24) H/O vasectomy S/P right hemicolectomy History of tonsillectomy History of appendectomy 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) Social History Smoking Status: Former smoker alcohol intake: never substance use type: does not use ROS <ONDINA Govea - Last Filed: 11/18/24 14:05> ROS ED Constitutional Constitutional ED: Denies chills or fever(s) Cardiovascular Cardiovascular: Denies chest pain Respiratory/Chest Respiratory/Chest: Denies dyspnea Gastrointestinal Gastrointestinal: Reports hematochezia; Denies abdominal pain, nausea or vomiting Genitourinary Genitourinary ED: Denies dysuria, hematuria or urinary urgency Musculoskeletal Musculoskeletal: Denies arthralgias or myalgias Neurologic Neurologic: Denies weakness EXAM <ONDINA Govea - Last Filed: 11/18/24 14:05> Physical Exam Const Vital Signs: 11/18/24 09:56 11/18/24 12:00 Temperature 97.8 F Temperature Source Oral Pulse Rate 76 63 Respiratory Rate 16 17 Blood Pressure 156/83 H 185/73 H Blood Pressure Mean 107 110 Pulse Ox 100 98 Oxygen Delivery Method Room Air Positive well nourished, well developed and no apparent distress General Appearance ED: well developed HEENT Reports normocephalic and head/scalp atraumatic Mouth ED: Yes moist mucous membranes normal Eyes PERRL and EOMs intact bilaterally Neck full ROM and supple Chest Wall inspection of chest normal Resp normal respiratory effort and clear to auscultation bilaterally Cardio regular rate and regular rhythm GI soft to palpation, non-tender, non-distended and no masses Back/Spine normal ROM and normal to inspection Extremity normal to inspection and full ROM Neuro oriented x3, CN's II-XII intact bilaterally, moves all extremities, no focal motor deficits and no sensory deficits noted Sensorium / Orientation: awake and alert Psych mental status grossly normal and thought process normal Skin no rashes or lesions noted and no wounds <Dr. Lazaro Sharp MD - Last Filed: 11/18/24 14:53> Physical Exam Const Vital Signs: 11/18/24 09:56 11/18/24 12:00 Temperature 97.8 F Temperature Source Oral Pulse Rate 76 63 Respiratory Rate 16 17 Blood Pressure 156/83 H 185/73 H Blood Pressure Mean 107 110 Pulse Ox 100 98 Oxygen Delivery Method Room Air MDM <ONDINA Govea - Last Filed: 11/18/24 14:05> [facility] MDM Narrative Medical decision making narrative: Patient presenting today due to concerns for bloody bowel movements he had earlier this morning. He reports that he has been having dark-colored stools since starting his iron supplement. He has a history of metastatic colon cancer. Patient does not appear to understand the severity of his diagnosis, heis under the impression that his cancer is under control and that there are no active cancerous lesions. He was recently here about a week and a half ago for rectal bleeding, he had a colonoscopy performed by Dr. Silvestre. It was found that he had an ulceration at the anastomosis site of his partial colectomy, thiswas clipped. He reports chronic lower abdominal pain especially when having bowel movements. He reports that his bowels have been loose and watery. Rectalexam was performed by the attending physician, he had a significant amount of maroon-colored stool. His hemoglobin has dropped about a gram and a half in thepast 11 days. No leukocytosis. Sodium slightly low at 130. CT scan of the abdomen pelvis with IV contrast shows no acute findings, does suggest metastaticdisease. I do feel he would benefit from readmission to the hospital. He will be admitted in stable condition. I have personally performed a face to face assessment of the patient and have reviewed the ODILON Note. I performed a substantive portion of the visit including all aspects of the following. My braun findings include: History is limited due to the fact the patient is a poor informant does not understand the extent of his disease process. Dr. Papi Hernandez's office note wasreviewed. Patient at this point is declined chemotherapy. He has stage IIIc cancer. Patient reports blood in his stool. He believes he may have had blood 3 days ago. He states his eyesight is poor and reason he is uncertain. He does complain of bilateral lower quadrant pain. Achy crampy like pain. He does not feel bloated. He had no vomiting. He is not on an anticoagulant. He is on iron. He is taking the iron tablets. He states his stool is dark. Exam is vital signs are marked for an elevated blood pressure. He appears slightly pale. Conjunctive is slightly pink. Trachea is midline. Lungs are clear to auscultation. Heart is regular. There is no murmur, gallop or rub. Rate is normal. Abdomen is slightly tympanitic. Tenderness both right and leftlower quadrant. No evidence of inguinal hernia. Rectal exam reveals evidence of prior hemorrhoids. There is brown blood near the anus. Anoscopy was performed. Patient had significant amount of brown-maroon watery diarrhea. Unable to determine if the anal/distal sigmoid mucosa is abnormal because of theamount of stool. Medical Decision Making the patient having pain bloody diarrhea need to evaluatefor ischemic colitis, versus infectious versus inflammatory. Will obtain appropriate blood work and CT. Patient and his were told he will need to be admitted. Other additions or changes: [None] Lab Data Labs: Laboratory Results - last 24 hr 11/18/24 11/18/24 10:20 11:56 WBC 7.9 RBC 3.34 L Hgb 10.3 L Hct 29.1 L MCV 87.1 MCH 30.8 MCHC 35.4 RDW Std Deviation 39.8 RDW Coeff of Deepika 12.4 Plt Count 333 MPV 8.6 Immature Gran % (Auto) 0.400 Neut % (Auto) 71.9 H Lymph % (Auto) 14.4 L Josephine % (Auto) 11.2 H Eos % (Auto) 1.8 Baso % (Auto) 0.3 Absolute Neuts (auto) 5.7 Absolute Lymphs (auto) 1.14 Nucleated RBC % 0 Sodium 130 L Potassium 4.1 Chloride 95 L Carbon Dioxide 24.0 Anion Gap 11 BUN 14 Creatinine 1.02 Estim Creat Clear Calc 54.00 Est GFR (MDRD) Non-Af 74 BUN/Creatinine Ratio 13.7 Glucose 104 H Calcium 8.9 Blood Type O POSITIVE Antibody Screen NEGATIVE Radiography Diagnostic Testing: Clinical Impression(s) from Imaging Studies Abdomen/Pelvis CT 11/18/24 10:50 IMPRESSION: 1. No acute abdominopelvic finding. 2. Prior colonic resection and anastomosis with findings of abdominopelvic metastatic disease, including hepatic, diffuse maggie, retroperitoneal/omental and mesenteric metastatic disease. 3. 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 Reading Location: [id number] <Dr. Lazaro Sharp MD - Last Filed: 11/18/24 14:53> [facility] MDM Narrative Medical decision making narrative: ulceration at the anastamosis site of you prior partial colectomy that was the cause of your bleeding. Dr. Silvestre was able to place a clip to stop the bleeding. I have personally performed a face to face assessment of the patient and have reviewed the ODILON Note. I performed a substantive portion of the visit including all aspects of the following. My braun findings include: History is limited due to the fact the patient is a poor informant does not understand the extent of his disease process. Dr. Papi Hernandez's office note was reviewed. Patient at this point is declined chemotherapy. He has stage IIIc cancer. Patient reports blood in his stool. He believes he may have had blood 3 days ago. He states his eyesight is poor and reason he is uncertain. He does complain of bilateral lower quadrant pain. Achy crampy like pain. He does not feel bloated. He had no vomiting. He is not on an anticoagulant. He is on iron. He is taking the iron tablets. He states his stool is dark. Exam is vital signs are marked for an elevated blood pressure. He appears slightly pale. Conjunctive is slightly pink. Trachea is midline. Lungs are clear to auscultation. Heart is regular. There is no murmur, gallop or rub. Rate is normal. Abdomen is slightly tympanitic. Tenderness both right and left lower quadrant. No evidence of inguinal hernia. Rectal exam reveals evidence of prior hemorrhoids. There is brown blood near the anus. Anoscopy was performed. Patient had significant amount of brown-maroon watery diarrhea. Unable to determine if the anal/distal sigmoid mucosa is abnormal because of the amount of stool. Medical Decision Making the patient having pain bloody diarrhea need to evaluate for ischemic colitis, versus infectious versus inflammatory. Will obtain appropriate blood work and CT. Patient and his were told he will need to be admitted. Other additions or changes: [None] Lab Data Attestation: I reviewed the patient's lab results. Lab results narrative: White count is normal. There is a slight shift. H&H is 10.3 and 29.1 with normal indices. This represents a 1.5 g drop from November 07. In light of this patient was typed and screened. Labs: Laboratory Results - last 24 hr 11/18/24 11/18/24 10:20 11:56 WBC 7.9 RBC 3.34 L Hgb 10.3 L Hct 29.1 L MCV 87.1 MCH 30.8 MCHC 35.4 RDW Std Deviation 39.8 RDW Coeff of Deepika 12.4 Plt Count 333 MPV 8.6 Immature Gran % (Auto) 0.400 Neut % (Auto) 71.9 H Lymph % (Auto) 14.4 L Josephine % (Auto) 11.2 H Eos % (Auto) 1.8 Baso % (Auto) 0.3 Absolute Neuts (auto) 5.7 Absolute Lymphs (auto) 1.14 Nucleated RBC % 0 Sodium 130 L Potassium 4.1 Chloride 95 L Carbon Dioxide 24.0 Anion Gap 11 BUN 14 Creatinine 1.02 Estim Creat Clear Calc 54.00 Est GFR (MDRD) Non-Af 74 BUN/Creatinine Ratio 13.7 Glucose 104 H Calcium 8.9 Blood Type O POSITIVE Antibody Screen NEGATIVE Radiography Diagnostic Testing: Clinical Impression(s) from Imaging Studies Abdomen/Pelvis CT 11/18/24 10:50 IMPRESSION: 1. No acute abdominopelvic finding. 2. Prior colonic resection and anastomosis with findings of abdominopelvic metastatic disease, including hepatic, diffuse maggie, retroperitoneal/omental and mesenteric metastatic disease. 3. 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 Reading Location: [facility] CT of the abdomen pelvis was reviewed by me at 1111. Patient is known to have mets to his liver. There is evidence of diverticulosis. There appears to be some inflammation of the small bowel. There is no evidence of abscess. There is no evidence of pneumoperitoneum. Bladder is distended. Awaiting formal read by radiologist. Management Discussion w/another healthcare provider: Hospitalist (Hospitalist, Dr. Kelvin Schrader was made aware of patient and admit to [facility]) Procedures <Dr. Lazaro Sharp MD - Last Filed: 11/18/24 14:53> Other Procedures Procedure(s): Anoscopy was performed. Anoscopy was limited due to the amount of profuse bloody diarrhea. There was evidence of external prior hemorrhoids. There was no evidence of bleeding hemorrhoids. Prostate slightly enlarged. There is no hardness or irregularity to the prostate. Discharge Plan Dx/Rx/DC Orders Clinical Impression: Colon cancer, Rectal bleeding, Coronary artery disease, Bloody diarrhea, Anemia due to blood loss, Elevated blood pressure reading with diagnosis of hypertension Disposition Disposition: Acute Care Hospital [facility] What to do if you have Problems For any increased pain, shortness of breath, bleeding, nausea or vomiting, chest pain, or any unexpected problems, contact your Primary Care Provider. Call [facility] ([phone]) or report to the closest Emergency Room. Call 911 if necessary. 11/18/24 1405 <Electronically signed by Radha [place]> Cosigner Signature (if applicable): 11/18/24 1453 <Electronically signed by Lazaro Sharp MD> CC: MARYAM Olson ~ Signed [facility] Work Phone: 1(560) 914-755904-20-2025 Radiology Diagnostic study note [facility] Imaging Services [address] [place], [place] [id number] Abdomen/Pelvis W IV Cont ONLY MR#: [id number] Acct: [id number] Name: JARED RAYMOND Rep #: [id number] : 1945 M 79 From: Vanessa Rosado MD PCP: Mariela Olson NP-C Status: REG ER Study:Abdomen/Pelvis W IV Cont ONLY Date of E xam: 11/18/24 Exam# [id number] Ordering Dr: Radha Sharp MD PROCEDURE: ABDOMEN/PELVIS W IV CONT ONLY 11/18/2024 REASON FOR EXAM: BILATERAL LOWER QUADRANT PAIN, BLOODY DIARRHEA TECHNIQUE: Abdomen and pelvis CT with intravenous contrast. Coronal and Sagittal reconstruction series were provided. PATIENT PREPARATION: Per protocol ORAL CONTRAST TYPE: None. CONTRAST: Isovue 370 VOLUME: 100 mL One or more dose reduction techniques were used (e.g., Automated exposure control, adjustment of the mA and/or kV according to patient size, use of iterative reconstruction technique. RADIATION DOSE SUMMARY: CTDlvol: 11 mGy DLP: 600 mGycm COMPARISON: CT abdomen pelvis 11/05/2024 FINDINGS: Lung bases: Bibasilar atelectasis. The heart is normal in size. Liver: The liver is normal in size with numerous hypodensities throughout the left and right hepatic lobes. The major portal veins are patent. No biliary ductal dilation. Gallbladder: No radiopaque stones within the gallbladder. Spleen: Normal size. Pancreas: Stable soft tissue mass abutting the pancreatic head, partially encasing the SMA, measuring approximately 4.3 x 4.2 cm, previously 4.0 x 4.0 cm. Adrenals: Thickening of the left adrenal gland without discrete mass. Kidneys: Nonobstructing right lower pole renal calculus. No hydronephrosis. Bladder: Distended and unremarkable. Reproductive Organs: Unremarkable. Bowel: Multiple prior bowel resections and anastomosis. Unchanged soft tissue lesion just lateral to the colonic anastomosis (series 2, image 47). The bowel loops are normal in caliber. No ascites or pneumoperitoneum. No inflammatory mass in the expected region of the appendix. Lymph nodes: Extensive retroperitoneal and mesenteric lymphadenopathy, several which demonstrate necrotic changes, unchanged since prior examination. Vasculature: Severe mixed plaque of the aortoiliac vessels. Compression of the SMV secondary to thelarge mesenteric mass, unchanged. Bones: Thoracolumbar spondylosis. Surgical scarring along the ventral midline abdominal wall. Stable small soft tissue mass within the right lower anterior abdominal wall. CT/Abdomen/Pelvis W IV Cont ONLY IMPRESSION: 1. No acute abdominopelvic finding. 2. Prior colonic resection and anastomosis with findings of abdominopelvic metastatic disease, including hepatic, diffuse maggie, retroperitoneal/omental and mesenteric metastatic disease. 3. 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 Reading Location: [facility] CC: MARYAM Olson; Dr. Lazaro Sharp MD ~ Database Analyst: Signed [facility]04-09-2025 Discharge summary [facility] Medical Records Department [address] [place] [address] Discharge Summary 11/07/24 1655 MR#: [id number] Acct: [id number] Name: JARED RAYMOND Rep #:[id number] : 1945 79 From: Stevie Harrington DO PCP: MARYAM Guerra Status:ADM IN Location: [place] [address] Providers Date of Admission: 11/06/24 Primary Care Physician: MARYAM Guerra Consultations 11/06/24 03:28 Consult: Gastroenterology Routine Consulting Provider: [facility] Reason for Consult: LGIB with BRBPR; recurrent. EMERGENT Consult: No MD Notified: Yes Date Notified: 11/06/24 Time Notified: 02:57 Method of Notification: ED Physician Initiated Reason For Visit: LGIB WITH BRBPR; RECURRENT Diagnosis Discharge Diagnosis (1) GI (gastrointestinal bleed): Status: Acute Code(s): K92.2 - Gastrointestinal hemorrhage, unspecified Qualifiers: GI bleed type/associated pathology: unspecified gastrointestinal hemorrhage type Qualified Code(s):K92.2 - Gastrointestinal hemorrhage, unspecified Plan: Hg stable. GI on consult. CTA A/P no obvious source of bleeding. Colonoscopy on 11/06: ulceration clipped. Bleeding abated during the procedure. DWDr. Friend, no plans for repeat colonoscopy as pt has had no further bleeding and hemoglobin has remained stable. Plan Colon cancer: * multiple uncinate bilobar hepatic lesions, concerning for metastasis. Stable large central mesenteri mass with obscuration of the SMV. Extensive retroperitoneal adenopathy, unchanged. * Last saw oncology 4/2. Stage IIIC. Per Dr. Hernandez's note, declined chemotherapy. Daughter wants himto try Ivermectin. Recommended for second opinion. * Pt and family to determine on course of action, if wishing to pursue ivermectin, then they will have to find a specialist who will prescribe them that for cancer. If not, then can follow up with Dr. Hernandez. Abdominal pain * prior to arrival. Patient attributes to gas. Start simethicone. Hypertensive urgency * improved * resume amlodipine, metoprolol * PRN hydralazine VTE prophylaxis: SCDs. Medications at Discharge Home Medications amlodipine 5 mg tablet 5 mg PO DAILY HEART 05/16/24 clonidine HCl 0.1 mg tablet 0.1 mg PO DAILY PRN hbp 06/08/24 ferrous sulfate 325 mg (65 mg iron) tablet (Iron (ferrous sulfate)) 325 mg PO DAILY 30 days #60 tabs 06/10/24 metoprolol tartrate 50 mg tablet 25 mg PO QDAY Blood pressure/heart rat 10/17/24 oxycodone 5 mg tablet 5 mg PO Q6H PRN pain 7 days #28 tabs 10/24/24 simethicone 80 mg chewable tablet 80 mg PO PCHS #0 tabs 11/07/24 Hospital Course Summary of Care Provided Minutes Spent on Discharge: 32 Weight / BMI Weight Weight: 72.8 kg Body Mass Index (BMI) 25.1 ABG / Lab / Microbiology Data 11/07/24 03:57 11/07/24 03:57 Laboratory: Laboratory Results - last 24 hr 11/07/24 03:57: WBC 6.2, RBC 3.89 L, Hgb 11.9 L, Hct 34.0 L, MCV 87.4, MCH 30.6,MCHC 35.0, RDW Std Deviation 39.5, RDW Coeff of Deepika 12.3, Plt Count 285, MPV 9.3, Immature Gran % (Auto) 0.500, Neut % (Auto) 70.4 H, Lymph % (Auto) 14.8 L, Josephine % (Auto) 12.5 H, Eos % (Auto) 1.3, Baso % (Auto) 0.5, Absolute Neuts (auto)4.3, Absolute Lymphs (auto) 0.91, Nucleated RBC % 0, Sodium 128 L, Potassium 3.8, Chloride 96 L, Carbon Dioxide 18.1 L, Anion Gap 14, BUN 16, Creatinine 1.02, Estim Creat Clear Calc 54.00, Est GFR (MDRD) Non-Af 74, BUN/Creatinine Ratio 16.0, Glucose 92, Calcium 8.6 Microbiology: Microbiology 11/06/24 06:10 Stool Stool Lactoferrin - Final 11/06/24 06:10 Stool Enteric Bacteriology - Final 11/06/24 06:10 Stool Clostridioides difficile (PCR) - Final 11/05/24 23:44 Stool Stool Occult Blood (EDINSON) - Final Occult Blood Positive D/C Instructions Discharge Diet: No restrictions DC O2, CPAP, BIPAP Needs Home O2 Discharge instructions: No Meaningful Use Info Meaningful Use Meaningful Use Diagnoses (Choose all that apply): None applicable Ischemic Stroke Statin Dosing Therapy Reference: STATIN DOSE THERAPY REFERENCE: * Patients > 75 years receive moderate or high dose statin therapy. * Patients 75 years or YOUNGER should receive HIGH intensity statin dose unless contraindicated. You will be required to document reason for non-treatment if statin daily dose does not meet guidelines. HIGH DOSE STATIN THERAPY DAILY Atorvastatin > than or = to 40 mg Rosuvastatin > than or = to 20 mg Amlodipine + Atorvastatin > than or = to 2.5/40 mg Ezetimibe + Simvastatin 10/80 mg Simvastatin 80mg Discharge Plan Admission Admit Date/Time: 11/06/24 02:56 Primary Reason for Your Visit: Gastrointestinal bleed. Attending Provider: Stevie Harrington Primary Care Provider: Mariela Olson Consulting Providers: Darrel Carpenter Instructions Additional Instructions / Restrictions: You had an ulceration at the anastamosis site of you prior partial colectomy that was the cause of your bleeding. Dr. Silvestre was able to place a clip to stopthe bleeding. No further colonoscopy is needed at this time. You saw Dr. Hernandez on October 31. If you are interested in pursuing chemotherapy for you cancer, please follow up with his office. If you are pursuing alternative therapies, you will need to find another provider to assist you. Discharge Orders/Prescriptions Prescriptions: New simethicone 80 mg Tablet,Chewable 80 mg PO PCHS Qty: 0 0RF Continued metoprolol tartrate 50 mg tablet 25 mg PO QDAY amlodipine 5 mg tablet 5 mg PO DAILY ferrous sulfate [Iron (ferrous sulfate)] 325 mg (65 mg iron) tablet 325 mg PO DAILY 30 Days Qty: 60 5RF clonidine HCl 0.1 mg tablet 0.1 mg PO DAILY PRN (Reason: hbp) Patient Comments: pt states he only takes if bp is over 200+ oxycodone 5 mg tablet 5 mg PO Q6H PRN (Reason: pain) 7 Days Qty: 28 0RF Referrals / Follow Up: Mariela Olson NP-C [Primary Care Provider] - Within 2 Weeks Disposition Disposition (needs filled in before D/C Order can be placed): Home, Self Care Charges/Coding Visit Charges Inpatient E&M: 51086 Disch Hosp >30min 11/07/24 1707 Cosigner Signature (if applicable): CC: MARYAM Olson; Dr. Stevie Harrington DO~ Signed [facility]04-09-20[facility] Progress note Author Stevie Harrington [facility] Note Date/Time November 07, 2024 12:2 7pm [facility] Medical Records Department [address] [place] [address] Progress Note - Hospitalist 11/07/24 0727 MR#: [id number] Acct: [id number] Name: JARED RAYMOND Rep #:[id number] : 1945 79 From: Stevie Harrington DO PCP: MARYAM Guerra Status:ADM IN Location: [place] [address] Reason for Visit Reason for Visit: Diagnoses Malignant neoplasm of colon, unspecified (11/06/24) Secondary and unspecified malignant neoplasm of intra-abdominal lymph nodes (11/06/24) Anemia, unspecified (11/06/24) Hypo-osmolality and hyponatremia (11/06/24) Essential (primary) hypertension (11/06/24) Gastrointestinal hemorrhage, unspecified (11/06/24) Generalized abdominal pain (11/06/24) Localized enlarged lymph nodes (11/06/24) Patient's noncompliance with other medical treatment and regimen due to unspecified reason (11/06/24) Subjective Subjective Complains of abdominal pain that has been ongoing for eons. No further hematochezia. Objective Data Objective Data Vital Signs: Vital Signs Temp Pulse Resp BP Pulse Ox O2 Del Method 36.7 C 87 14 151/69 H 99 Room Air 11/07/24 04:05 11/07/24 04:05 11/07/24 04:05 11/07/24 04:05 11/07/24 04:05 11/07/24 04:08 Oxygen Delivery Method Room Air Weight: 72.8 kg Body Mass Index (BMI) 25.1 Intake & Output: Intake and Output for Last 24 Hours 11/05/24 11/06/24 11/07/24 23:59 23:59 23:59 Intake Total 2119 0 / 0 Balance 2119 0 / 0 Lab / Micro Data 11/07/24 03:57 11/07/24 03:57 Labs: Laboratory Results - last 24 hr 11/06/24 08:39: Troponin T Hi Sens 4Hr 19 11/06/24 16:30: WBC 6.5, RBC 3.83 L, Hgb 11.9 L, Hct 33.9 L, MCV 88.5, MCH 31.1,MCHC 35.1, RDW Std Deviation 39.8, RDW Coeff of Deepika 12.3, Plt Count 290, MPV 9.1, Immature Gran % (Auto) 0.300, Neut % (Auto) 78.1 H, Lymph % (Auto) 9.1 L, Josephine % (Auto) 11.9 H, Eos % (Auto) 0.3, Baso % (Auto) 0.3, Absolute Neuts (auto) 5.0, Absolute Lymphs (auto) 0.59 L, Nucleated RBC % 0 11/07/24 03:57: WBC 6.2, RBC 3.89 L, Hgb 11.9 L, Hct 34.0 L, MCV 87.4, MCH 30.6,MCHC 35.0, RDW Std Deviation 39.5, RDW Coeff of Deepika 12.3, Plt Count 285, MPV 9.3, Immature Gran % (Auto) 0.500, Neut % (Auto) 70.4 H, Lymph % (Auto) 14.8 L, Josephine % (Auto) 12.5 H, Eos % (Auto) 1.3, Baso % (Auto) 0.5, Absolute Neuts (auto)4.3, Absolute Lymphs (auto) 0.91, Nucleated RBC % 0, Sodium 128 L, Potassium 3.8, Chloride 96 L, Carbon Dioxide 18.1 L, Anion Gap 14, BUN 16, Creatinine 1.02, Estim Creat Clear Calc 54.00, Est GFR (MDRD) Non-Af 74, BUN/Creatinine Ratio 16.0, Glucose 92, Calcium 8.6 Micro: Microbiology 11/06/24 06:10 Stool Stool Lactoferrin - Final 11/06/24 06:10 Stool Enteric Bacteriology - Final 11/06/24 06:10 Stool Clostridioides difficile (PCR) - Final 11/05/24 23:44 Stool Stool Occult Blood (EDINSON) - Final Occult Blood Positive Physical Exam Const alert and no apparent distress HEENT head/scalp atraumatic and moist oral mucous membranes Resp normal respiratory effort, no retractions, no use of accessory muscles and clearto auscultation bilaterally Cardio regular rate, regular rhythm, S1 normal heart sound and S2 normal heart sound GI normal to inspection, nondistended, normoactive bowel sounds, soft to palpation,non-tender and non-distended Extremity normal to inspection, full ROM and no clubbing, cyanosis or edema Neuro Sensorium / Orientation: awake and alert Assessment & Plan Assessment/Plan (1) GI (gastrointestinal bleed): QUALIFIERS: GI bleed type/associated pathology: unspecified gastrointestinal hemorrhage type Qualified Code(s): K92.2 - Gastrointestinal hemorrhage, unspecified PLAN: Hg stable. GI on consult. CTA A/P no obvious source of bleeding. Colonoscopy on 11/06: ulceration clipped. Bleeding abated during the procedure. PLAN: Plan Colon cancer: * multiple uncinate bilobar hepatic lesions, concerning for metastasis. Stable large central mesenteri mass with obscuration of the SMV. Extensive retroperitoneal adenopathy, unchanged. * Last saw oncology 10/31. Stage IIIC. Per Dr. Hernandez's note, declined chemotherapy. Daughter wants him to try Ivermectin. Recommended for second opinion. Abdominal pain * prior to arrival. Patient attributes to gas. Start simethicone. Hypertensive urgency * improved * resume amlodipine, metoprolol * PRN hydralazine VTE prophylaxis: SCDs. Charges/Coding Visit Charges Inpatient E&M: 01125 Subs Hosp L2 11/07/24 2092 <Electronically signed by Stevie Harrington DO> Cosigner Signature (if applicable): CC: ~ Signed [facility] Work Phone: 1(333) 854-387504-09-2025 Progress note [facility] Medical Records Department [address] [place] [address] Progress Note - Hospitalist 11/07/24726 MR#: [id number] Acct: [id number] Name: JARED RAYMOND Rep #:[id number] : 1945 79 From: Stevie Harrington DO PCP: Mariela Olson [facility] ASSESSOR-C Status:ADM IN Location: [place] [address] Reason for Visit Reason for Visit: Diagnoses Malignant neoplasm of colon, unspecified (11/06/24) Secondary and unspecified malignant neoplasm of intra-abdominal lymph nodes (11/06/24) Anemia, unspecified (11/06/24) Hypo-osmolality and hyponatremia (11/06/24) Essential (primary) hypertension (11/06/24) Gastrointestinal hemorrhage, unspecified (11/06/24) Generalized abdominal pain (11/06/24) Localized enlarged lymph nodes (11/06/24) Patient's noncompliance with other medical treatment and regimen due to unspecified reason (11/06/24) Subjective Subjective Complains of abdominal pain that has been ongoing for eons. No further hematochezia. Objective Data Objective Data Vital Signs: Vital Signs Temp Pulse Resp BP Pulse Ox O2 Del Method 36.7 C 87 14 151/69 H 99 Room Air 11/07/24 04:05 11/07/24 04:05 11/07/24 04:05 11/07/24 04:05 11/07/24 04:05 11/07/24 04:08 Oxygen Delivery Method Room Air Weight: 72.8 kg Body Mass Index (BMI) 25.1 Intake & Output: Intake and Output for Last 24 Hours 11/05/24 11/06/24 11/07/24 23:59 23:59 23:59 Intake Total 0 / 0 0 / 0 Balance 0 / 0 0 / 0 Lab / Micro Data 11/07/24 03:57 11/07/24 03:57 Labs: Laboratory Results - last 24 hr 11/06/24 08:39: Troponin T Hi Sens 4Hr 19 11/06/24 16:30: WBC 6.5, RBC 3.83 L, Hgb 11.9 L, Hct 33.9 L, MCV 88.5, MCH 31.1,MCHC 35.1, RDW Std Deviation 39.8, RDW Coeff of Deepika 12.3, Plt Count 290, MPV 9.1, Immature Gran % (Auto) 0.300, Neut % (Auto) 78.1 H, Lymph % (Auto) 9.1 L, Josephine % (Auto) 11.9 H, Eos % (Auto) 0.3, Baso % (Auto) 0.3, Absolute Neuts (auto) 5.0, Absolute Lymphs (auto) 0.59 L, Nucleated RBC % 0 11/07/24 03:57: WBC 6.2, RBC 3.89 L, Hgb 11.9 L, Hct 34.0 L, MCV 87.4, MCH 30.6,MCHC 35.0, RDW Std Deviation 39.5, RDW Coeff of Deepika 12.3, Plt Count 285, MPV 9.3, Immature Gran % (Auto) 0.500, Neut % (Auto) 70.4 H, Lymph % (Auto) 14.8 L, Josephine % (Auto) 12.5 H, Eos % (Auto) 1.3, Baso % (Auto) 0.5, Absolute Neuts (auto)4.3, Absolute Lymphs (auto) 0.91, Nucleated RBC % 0, Sodium 128 L, Potassium 3.8, Chloride 96 L, Carbon Dioxide 18.1 L, Anion Gap 14, BUN 16, Creatinine 1.02, Estim Creat Clear Calc 54.00, Est GFR (MDRD) Non-Af 74, BUN/Creatinine Ratio 16.0, Glucose 92, Calcium 8.6 Micro: Microbiology 11/06/24 06:10 Stool Stool Lactoferrin - Final 11/06/24 06:10 Stool Enteric Bacteriology - Final 11/06/24 06:10 Stool Clostridioides difficile (PCR) - Final 11/05/24 23:44 Stool Stool Occult Blood (EDINSON) - Final Occult Blood Positive Physical Exam Const alert and no apparent distress HEENT head/scalp atraumatic and moist oral mucous membranes Resp normal respiratory effort, no retractions, no use of accessory muscles and clearto auscultation bilaterally Cardio regular rate, regular rhythm, S1 normal heart sound and S2 normal heart sound GI normal to inspection, nondistended, normoactive bowel sounds, soft to palpation,non-tender and non-distended Extremity normal to inspection, full ROM and no clubbing, cyanosis or edema Neuro Sensorium / Orientation: awake and alert Assessment & Plan Assessment/Plan (1) GI (gastrointestinal bleed): QUALIFIERS: GI bleed type/associated pathology: unspecified gastrointestinal hemorrhage type Qualified Code(s): K92.2 - Gastrointestinal hemorrhage, unspecified PLAN: Hg stable. GI on consult. CTA A/P no obvious source of bleeding. Colonoscopy on 11/06: ulceration clipped. Bleeding abated during the procedure. PLAN: Plan Colon cancer: * multiple uncinate bilobar hepatic lesions, concerning for metastasis. Stable large central mesenteri mass with obscuration of the SMV. Extensive retroperitoneal adenopathy, unchanged. * Last saw oncology 10/31. Stage IIIC. Per Dr. Hernandez's note, declined chemotherapy. Daughter wants himto try Ivermectin. Recommended for second opinion. Abdominal pain * prior to arrival. Patient attributes to gas. Start simethicone. Hypertensive urgency * improved * resume amlodipine, metoprolol * PRN hydralazine VTE prophylaxis: SCDs. Charges/Coding Visit Charges Inpatient E&M: 92439 [facility] Hosp L2 11/07/24 1227 Cosigner Signature (if applicable): CC: ~ Signed [facility]04-08-2025 Consult note Author Keo Burgos [facility] Note Date/Time November 06, 2024 8:40 pm [facility] Medical Records Department [address] [place] [address] Anesthesia Postop Eval II 11/06/242038 MR#: [id number] Acct: [id number] Name: JARED RAYMOND Rep #:[id number] : 1945 79 From: Keo Burgos MD PCP: MARYAM Guerra Status:ADM IN Y Race: C Location: [place] [address] 3-1 Anesthesia Postop Eval I Sum Postop Eval Completion status Anesthesia document: Postop Eval 1 completed: Yes Anesthesia Postop Eval I Summary Anesthesia Postop Eval I Summary: Anesthesia Postop Eval I: Assessment Summary Airway patent Yes 11/06/24 19:59 Spontaneous unlabored Yes 11/06/24 19:59 respirations Mental status Awake,Calm 11/06/24 19:59 nausea No 11/06/24 19:59 Vomiting No 11/06/24 19:59 Anesthesia Postop Eval I: Fluid Summary Crystalloid volume administer 10 11/06/24 19:59 (ml) Colloids volume administered ( ml) Blood Product volume administered (ml) Total IV fluid infused 10 11/06/24 19:59 Anesthesia Postop Eval I: Summary Notes Anesthesia Complication No 11/06/24 19:59 Anesthesia Complication Comment: Post-operative progress note Anesthesia: Postop Eval II Evaluation Mental status: Awake and Calm Pain Level: 0 nausea: No Vomiting: No Complications Anesthesia Complication: No 11/06/242039 <Electronically signed by Keo mathew MD> Date _ Keo Burgos MD Cosigner Signature: Date CC: ~ Signed [facility] Work Phone: 1(786) 543-939704-08-2025 Consult note Author Keo [facility] Note Date/Time November 06, 2024 8:00 pm [facility] Medical Records Department [address] [place] [address] Anesthesia Postop Eval I 11/06/241948 MR#: [id number] Acct: [id number] Name: JARED RAYMOND Rep #:[id number] : 1945 79 From: Keo Burgos MD PCP: MARYAM Guerra Status:ADM IN Y Race: C Location: [place] [address] Anesthesia: Postop Eval I Current Vital Signs Temperature: 98 F Pulse Rate: 70 Blood Pressure: 175/76 Respiratory Rate: 16 Pulse Ox: 97 Oxygen Delivery Method: Room Air Assessment Airway patent: Yes Spontaneous unlabored respirations: Yes Mental status: Awake and Calm nausea: No Vomiting: No Anesthesia Complication: No Fluid Hydration Crystalloid volume administer (ml): 10 Total IV fluid infused: 10 Progress Note Anesthesia document: Postop Eval 1 completed: Yes 11/06/241999 <Electronically signed by Keo mathew MD> Date _ Keo Burgos MD Cosigner Signature: Date CC: ~ Signed [facility] Work Phone: 1(242) 533-221304-08-2025 Consult note Author Keo [facility] Note Date/Time November 06, 2024 7:07 pm [facility] Medical Records Department [address] [place] [id number] Pre-Anesthesia Evaluation 11/06/24 1859 MR#: [id number] Acct: [id number] Name: JARED RAYMOND Rep #:[id number] : 1945 79 From: Keo Burgos MD PCP: MARYAM Guerra Status:ADM IN Y Race: C Location: [place] [address] 3-1 ASA Classification* ASA Classification ASA Classification: 3 Assessment & Plan Anesthesia* Anesthesia Assessment Anesthesia Assessment: Discussed sedation and/or anesthesia options, risks, benefits, and alternatives with patient/parents/legal guardian/POA. Questions invited. The patient/parents/legal guardian/POA seems to understand and agrees to proceedwith anesthesia plan. Reviewed the physical assessment, medical history, allergy history and patient home medications list prior to surgery/procedure/anesthetic and documented any changes. Performed airway and anesthesia risk assessments. Anesthesia Type Anesthesia Type: MAC History Source History Obtained from:: Patient and Chart Anesthesia Focused Assessment* Temperature: 98.4 F Pulse Rate: 71 Blood Pressure: 169/80 Respiratory Rate: 16 Pulse Ox: 100 Oxygen Delivery Method: Room Air Airway Assessment Mouth opens: >3 cm Mallampati Score: I Teeth Condition: Dentures (Patient has full upper and lower dentures. They are in) Neck Range of motion (ROM): Full ROM Focused Labs Anesthesia Preop lab: CBC WBC 6.5 K/mm3 (4.4-11.0) 11/06/24 16:30 11/06/24 RBC 3.83 M/mm3 (4.6-6.2) L 11/06/24 16:30 11/06/24 Hgb 11.9 g/dL (13.0-16.5) L 11/06/24 16:30 5 Hct 33.9 % (40-54) L 11/06/24 16:30 11/06/24 Plt Count 290 K/mm3 (150-450) 11/06/24 16:30 11/06/24 CHEMISTRY Potassium 4.1 mmol/L (3.3-5.1) 11/06/24 04:23 11/06/24 Sodium 130 mmol/L (133-145) L 11/06/24 04:23 11/06/24 Magnesium 2.3 mg/dL (1.5-2.2) H 11/05/24 22:42 11/05/24 Phosphorus 2.6 mg/dL (2.7-4.5) L 11/06/24 04:23 11/06/24 BUN 14 mg/dL (4-19) 11/06/24 04:23 11/06/24 Creatinine 0.97 mg/dL (0.70-1.20) 11/06/24 04:23 11/06/24 Glucose 99 mg/dL (70-99) 11/06/24 04:23 11/06/24 POC Glucose 113 mg/dL (74-106) H 04/27/24 06:06 04/27/24 TSH 1.900 uIU/mL (0.300-4.200) 11/06/24 04:23 0403/25 COAG PT 12.2 SECONDS (11.7-14.9) 11/05/24 22:42 Pre-Assessment Diagnosis/Proposed Procedure Planned Operative Procedure(s): Flexible sigmoidoscopy Anesthesia History Anesthesia History - manager immunology: Anesthesia History - manager immunology Hx Hospitalization Yes: 06/09/24 BIOPSY OF LIVER 06/13/24 10:56 , TOXIC SHOCK- PASSED OUT Any Problems With Anesthesia No 06/13/24 10:56 Cholinesterase deficiency No 06/13/24 10:56 You/Your Family Experience No 06/13/24 10:56 fever (hyperthermia) with Relationship Recent Exposure to Contagious No 06/22/24 10:29 Disease Does patient have nerve No 06/13/24 10:56 stimulator Patient instructed to have device shut off --Does patient have Pacemaker or ICD? When Was Last Pacemaker Check QUESTION #4 FULL TEXT: You/Your Family Experience fever (hyperthermia) with Anesthesia Last Oral Intake Last Oral intake: Last Oral Intake NPO since Meds taken in AM with sips of water? Meds patient instructed to take am of surgery Any additional information?: Yes NPO since: 00:00 Meds taken in AM with sips of water?: Yes PONV PONV - manager immunology: PONV - manager immunology Female HX of Motion Sickness HX of N/V After Surgery Non-Smoker Duration of Surgery greater than 60 minutes Number of Risk Factors PONV Score Height & Weight Height & Weight: Anesthesia: Height & Weight Height 5 ft 7 in 11/06/24 09:29 Weight: 72 kg 11/06/24 09:29 Body Mass Index (BMI) 24.8 11/06/24 05:23 Respiratory Assessment Respiratory Assessment - manager immunology: Respiratory Tract Infection Hx - manager immunology Hx Respiratory Tract Infection Yes: Patient is recovering 06/22/24 12:11 from a cold/sinus congestion STOP Sleep Apnea STOP Sleep Apnea - manager immunology: STOP Sleep Apnea - manager immunology Hx Hypertension Yes 11/06/24 13:19 Hx Sleep Apnea No 11/06/24 03:38 CPAP No 06/22/24 13:56 BIPAP No 06/13/24 10:56 Do you snore loudly (louder No 11/06/24 03:38 than talking or can be heard Do you often feel tired/ No 11/06/24 03:38 fatigued/ sleepy during daytime? Has anyone observed you stop No 11/06/24 03:38 breathing during sleep? STOP Results Negative 11/06/24 03:38 QUESTION #5 FULL TEXT : Do you snore loudly (louder than talking or can be heard through closed doors)? 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 Specify any problems Hx of Preganancy in last 3 N/A 11/06/24 03:38 Months Nurse Filling Out Transfusion JSNOW 11/06/24 03:38 & Questions: Date: 11/06/24 11/06/24 03:38 Time: 03:49 11/06/24 03:38 Patient unable to answer at this time (ie. confused, unrespo /Reproduction History /Reproductive History - manager immunology: /Reproductive Hx- manager immunology Hx Now Gestational Age (in weeks): EDC: Hx Hx Para Hx Section SAB No 06/13/24 10:56 Active Medications Active Medications: Current Medications Generic Name Dose Route Start Last Admin Trade Name Freq PRN Reason Stop Dose Admin Amlodipine Besylate 5 mg 11/06/24 10:00 11/06/24 09:51 Amlodipine 5 Mg Tablet PO 5 mg DAILY EVITA Administration Protocol Hydralazine HCl 10 mg 11/06/24 03:28 Hydralazine 20 Mg/Ml Vial IV Q8H PRN PRN SBP GREATER THAN 160 Protocol Pantoprazole Sodium 40 mg/ 110 mls @ 330 mls/hr 11/06/24 03:28 11/06/24 09:52 Sodium Chloride IV Infused Q12 EVITA Infusion Sodium Chloride 100 mls @ 15 mls/hr 11/06/24 03:52 IV .Q6H40M PRN Saline Flush Sodium Chloride 100 mls @ 15 mls/hr 11/06/24 03:52 IV .Q6H40M PRN Additional IVPB Infusion Metoprolol Tartrate 25 mg 11/06/24 10:00 11/06/24 09:51 Metoprolol Tartrate 25 Mg Tablet PO 25 mg DAILY EVITA Administration Protocol Morphine Sulfate 2 mg 11/06/24 03:28 Morphine 2 Mg/Ml Syringe IV Q4H PRN PRN Pain Score 6-10 Ondansetron HCl 4 mg 11/06/24 03:28 Ondansetron 4 Mg/2 Ml Vial IV Q8H PRN PRN NAUSEA/VOMITING Promethazine HCl 25 mg 11/06/24 03:28 Promethazine 25 Mg/Ml Syringe IM Q6H PRN PRN Breakthrough Nausea/Vomiting Sodium Chloride 10 - 40 ml 11/06/24 03:52 0.9% Saline Lock 10 Ml Syringe IV UD PRN SALINE FLUSH PFSH Medical History Encounter for education Pre-op testing Wears dentures Arthritis Anemia Gastric reflux Former smoker History of edema History of echocardiogram History of stress test Cardiology follow-up encounter Aortic stenosis Preop cardiovascular exam Colon cancer Overweight (BMI 25.0-29.9) Colonic mass Coronary artery disease 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 Chronic hypertension Acute alteration in mental status Neuropathy Vasectomy planned Hyponatremia TIA (transient ischemic attack) CVA (cerebral vascular accident) Hypertension History of stroke Tobacco use Benign essential hypertension Home Medications ?Medication ?Instructions ?Recorded ?Last Taken ?Type amlodipine 5 mg tablet 5 mg PO DAILY HEART 05/16/24 11/05/24 History clonidine HCl 0.1 mg tablet 0.1 mg PO DAILY PRN hbp 10/06/24 History ferrous sulfate 325 mg (65 mg 325 mg PO DAILY 30 days #60 tabs 06/10/24 11/05/24 Rx iron) tablet (Iron (ferrous sulfate)) metoprolol tartrate 50 mg tablet 25 mg PO QDAY Blood p ressure/heart 10/17/24 11/05/24 History rat oxycodone 5 mg tablet 5 mg PO Q6H PRN pain 7 days #28 10/24/24 Unknown Rx tabs Allergy/AdvReac Type Severity Reaction Status Date / Time fentanyl AdvReac Low blood Verified 11/06/24 03:59 pressure Family History Father Arthritis Alcohol abuse Mother Alcohol abuse Liver disease Surgical History History of hemicolectomy (04/25/24) H/O vasectomy S/P right hemicolectomy History of tonsillectomy History of appendectomy 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 11/06/241906 <Electronically signed by Keo mathew MD> Date _ Keo Burgos MD Cosigner Signature: Date CC: ~ Signed [facility] Work Phone: [phone] 875-626904-08-2025 Consult note Author Ari Friend [facility] Note Date/Time November 06, 2024 6:59 pm [facility] Medical Records Department [address] [place] [address] Consultation - GI 11/06/24 1854 MR#: [id number] Acct: [id number] Name: JARED RAYMOND Rep #:[id number] : 1945 79 From: Ari Silvestre DO PCP: MARYAM Guerra Status:ADM IN Location: [place] [address] HPI Consult Data Date of Consult: 11/06/24 HPI Narrative Reason for Consultation: GI bleed HPI Narrative: JARED RAYMOND, is a 79 M who presents for the evaluation of lower GI bleed. He has a past medical history of hypertension and colon cancer. He states that today he went to the bathroom and he had a large amount of bright red blood. Hestates that this has happened 2 or 3 times since 8 PM. He reports that with hisprevious bout of blood per rectum he needed emergent surgery and multiple units of blood. Patient denies any history of bleeding disorder or blood thinner use. He denies any known sick contact. He states there is been no chest pain shortness of breath or dizziness or syncope. However with the recurrent episodes of blood per rectum he presents for evaluation. He originally presented to [facility] ED on 04/11/2024 with c/o hematochezia and anemia. CTA of the chest abdomen and pelvis with IV contrast on 04/11/2024 showed mass in the ascending colon, multiple nonspecific enlarged mediastinal nodes. He had colonoscopy on 04/13/2024 which showed an ulcerated, partially obstructing mass at the hepatic flexure. He underwent laparoscopic right hemicolectomy on 04/27/2024. Pathology showed invasive adenocarcinoma, tumor extends to the bistroserosal surface, with lymphovascular and perineural invasion, no gross tumor deposits, lymph nodes 15 out of 16 positive, MSI stable. Pathologic staging pT4 pN2b. 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 Chronic hypertension Acute alteration in mental status Neuropathy Vasectomy planned Hyponatremia TIA (transient ischemic attack) CVA (cerebral vascular accident) Hypertension History of stroke Tobacco use Benign essential hypertension Home Medications ?Medication ?Instructions ?Recorded ?Last Taken ?Type amlodipine 5 mg tablet 5 mg PO DAILY HEART 05/16/24 11/05/24 History clonidine HCl 0.1 mg tablet 0.1 mg PO DAILY PRN hbp 10/06/24 History ferrous sulfate 325 mg (65 mg 325 mg PO DAILY 30 days #60 tabs 06/10/24 11/05/24 Rx iron) tablet (Iron (ferrous sulfate)) metoprolol tartrate 50 mg tablet 25 mg PO QDAY Blood p ressure/heart 10/17/24 11/05/24 History rat oxycodone 5 mg tablet 5 mg PO Q6H PRN pain 7 days #28 10/24/24 Unknown Rx tabs Allergy/AdvReac Type Severity Reaction Status Date / Time fentanyl AdvReac Low blood Verified 11/06/24 03:59 pressure Family History Father Arthritis Alcohol abuse Mother Alcohol abuse Liver disease Surgical History History of hemicolectomy (04/25/24) H/O vasectomy S/P right hemicolectomy History of tonsillectomy History of appendectomy 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) Social History Smoking Status: Former smoker alcohol intake: never substance use type: does not use ROS Constitutional Constitutional: Denies fatigue, fever(s), poor appetite, weight gain or weight loss Gastrointestinal Gastrointestinal: Denies belching, bloating, change in bowel habits, change in stool character, chewing difficulty, coffee ground emesis, constipation, cramping, diarrhea, dyspepsia, dysphagia, early satiety, excessive flatus, fecalincontinence, heartburn, hematemesis, hematochezia, hemorrhoids, loose stools, melena, nausea, odynophagia, rectal bleeding, tenesmus, vomiting or weight changes Physical Exam Const alert and no apparent distress HEENT head/scalp atraumatic and moist oral mucous membranes Resp normal respiratory effort, no retractions, no use of accessory muscles and clearto auscultation bilaterally Cardio regular rate, regular rhythm, S1 normal heart sound and S2 normal heart sound GI normal to inspection, nondistended, normoactive bowel sounds, soft to palpation,non-tender and non-distended Extremity normal to inspection and full ROM Neuro Sensorium / Orientation: awake and alert Lab / Micro Data 11/06/24 16:30 11/06/24 04:23 Labs: Laboratory Results - last 24 hr 11/05/24 22:42: WBC Cancelled, Corrected WBC Cancelled, RBC Cancelled, Hgb Cancelled, Hct Cancelled, MCV Cancelled, MCH Cancelled, MCHC Cancelled, RDW Std Deviation Cancelled, RDW Coeff of Deepika Cancelled, Plt Count Cancelled, MPV Cancelled, Immature Gran % (Auto) Cancelled, Neut % (Auto) Cancelled, Lymph % (Auto) Cancelled, Josephine % (Auto) Cancelled, Eos % (Auto) Cancelled, Baso % (Auto)Cancelled, Absolute Neuts (auto) Cancelled, Absolute Lymphs (auto) Cancelled, Total Counted Cancelled, Neutrophils % (Manual) Cancelled, Band Neutrophils % Cancelled, Lymphocytes % (Manual) Cancelled, Monocytes % (Manual) Cancelled, Eosinophils % (Manual) Cancelled, Basophils % (Manual) Cancelled, Metamyelocytes% Cancelled, Myelocytes % Cancelled, Promyelocytes % Cancelled, Blast Cells % Cancelled, Plasma Cell % (Manual) Cancelled, Other Cells % Cancelled, Nucleated RBC % Cancelled, Nucleated RBCs/100 WBC Cancelled, Differential Comment Cancelled, Diff Path Review Cancelled, Hypersegmented Neuts Cancelled, Atypical Lymphocytes Cancelled, Reactive Lymphocytes Cancelled, Smudge Cells Cancelled, Toxic Granulation Cancelled, Toxic Vacuolation Cancelled, Dohle Bodies Cancelled, Deepa Rods Cancelled, Platelet Estimate Cancelled, Plt Morphology Comment Cancelled, RBC Morphology Cancelled 11/05/24 22:42: RBC Morphology Cancelled, Polychromasia Cancelled, HypochromasiaCancelled, Basophilic Stippling Cancelled, Anisocytosis Cancelled, Microcytosis Cancelled, Macrocytosis Cancelled, Spherocytes Cancelled, Sickle Cells Cancelled, Target Cells Cancelled, Tear Drop Cells Cancelled, Ovalocytes Cancelled, Stomatocytes Cancelled, [place] Bodies Cancelled, Tani Cells Cancelled, Bite Cells Cancelled, Crenated Cell Cancelled, Acanthocytes (Spur) Cancelled, Rouleaux Cancelled, Schistocytes Cancelled, PT 12.2, INR 0.9, APTT 22.1 L, Sodium 126 L, Potassium 4.0, Chloride 90 L, Carbon Dioxide 23.8, Anion Gap 12, BUN 14, Creatinine 0.92, Estim Creat Clear Calc 59.87, Est GFR (MDRD) Non-Af 84, BUN/Creatinine Ratio 15.4, Glucose 110 H, Lactic Acid < 1.0, Calcium 9.0, Magnesium 2.3 H, Blood Type O POSITIVE, Antibody Screen NEGATIVE 11/05/24 23:15: WBC 9.0, RBC 3.77 L, Hgb 11.5 L, Hct 32.9 L, MCV 87.3, MCH 30.5,MCHC 35.0, RDW Std Deviation 39.0, RDW Coeff of Deepika 12.2, Plt Count 274, MPV 8.7, Immature Gran % (Auto) 0.600, Neut % (Auto) 76.8 H, Lymph % (Auto) 12.9 L, Josephine % (Auto) 8.9, Eos % (Auto) 0.6, Baso % (Auto) 0.2, Absolute Neuts (auto) 6.9, Absolute Lymphs (auto) 1.16, Nucleated RBC % 0 11/06/24 04:23: WBC 7.9, RBC 4.04 L, Hgb 12.3 L, Hct 35.2 L, MCV 87.1, MCH 30.4,MCHC 34.9, RDW Std Deviation 39.1, RDW Coeff of Deepika 12.2, Plt Count 303, MPV 8.7, Immature Gran % (Auto) 0.300, Neut % (Auto) 74.5 H, Lymph % (Auto) 13.7 L, Josephine % (Auto) 9.8, Eos % (Auto) 1.4, Baso % (Auto) 0.3, Absolute Neuts (auto) 5.9, Absolute Lymphs (auto) 1.08, Nucleated RBC % 0, Sodium 130 L, Potassium 4.1, Chloride 96 L, Carbon Dioxide 21.7, Anion Gap 12, BUN 14, Creatinine 0.97, Estim Creat Clear Calc 56.79, Est GFR (MDRD) Non-Af 79, BUN/Creatinine Ratio 14.4, Glucose 99, Serum Osmolality 279 L, Calcium 8.8, Phosphorus 2.6 L, Iron 50L, TIBC 270, Iron Saturation 19.0, Unsaturated IBC 220 L, Ferritin 138, Total Bilirubin 0.64, AST 22, ALT 14, Alkaline Phosphatase 101, Troponin T High Sens 18, Total Protein 6.7, Albumin 3.9, Globulin 2.8, Albumin/Globulin Ratio 1.4, Vitamin B12 790, TSH 1.900 11/06/24 04:50: Urine Osmolality 363 11/06/24 05:59: Troponin T Hi Sens 2 Hr 23 H 11/06/24 08:39: Troponin T Hi Sens 4Hr 19 11/06/24 16:30: WBC 6.5, RBC 3.83 L, Hgb 11.9 L, Hct 33.9 L, MCV 88.5, MCH 31.1,MCHC 35.1, RDW Std Deviation 39.8, RDW Coeff of Deepika 12.3, Plt Count 290, MPV 9.1, Immature Gran % (Auto) 0.300, Neut % (Auto) 78.1 H, Lymph % (Auto) 9.1 L, Josephine % (Auto) 11.9 H, Eos % (Auto) 0.3, Baso % (Auto) 0.3, Absolute Neuts (auto) 5.0, Absolute Lymphs (auto) 0.59 L, Nucleated RBC % 0 Micro: Microbiology 11/06/24 06:10 Stool Stool Lactoferrin - Final 11/06/24 06:10 Stool Enteric Bacteriology - Final 11/06/24 06:10 Stool Clostridioides difficile (PCR) - Final 11/05/24 23:44 Stool Stool Occult Blood ([facility]IN[facility]) - Final Occult Blood Positive Imaging Radiology Impression Abdomen/Pelvis CTA 11/05/24 22:46 IMPRESSION: 1. Extensive calcified and noncalcified plaque throughout the abdominal aorta and iliac arteries without evidence of acute dissection or aneurysm. 2. 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 And other findings as described above. 3. Multiple uncinate bilobar low-attenuation hepatic lesions, concerning for metastasis. 4. Stable large central mesenteric mass with obscuration of the SMV as describedabove. 5. Extensive retroperitoneal adenopathy, unchanged. 6. Other stable findings as described above. Reading [facility] [place] Assessment & Plan Assessment/Plan (1) GI (gastrointestinal bleed): QUALIFIERS: GI bleed type/associated pathology: unspecified gastrointestinal hemorrhage type Qualified Code(s): K92.2 - Gastrointestinal hemorrhage, unspecified PLAN: Hg stable. GI on consult. CTA A/P no obvious source of bleeding. Suspect lower source Follow up CBC. PLAN: Plan An 79 yo with h/o 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: He had a Right colon cancer, s/p right hemicolectomy. Pathologic stage pT4 PN2b. Prognostic stage IIIC. CT chest, abdomen and pelvis shows multiple nonspecific mediastinal lymph nodes, hypodensity in the liver. PET/CT on 05/29/2024 showed Hypermetabolic activities in subcarinal node, R hilar node, liver and LE/GEJ area. Biopsy of esophagus and stomach were negative. Biopsy of mediastinal nodes were negative. He declined chemotherapy was suggested. Comes for follow up, CT on 10/24/2024 shows metastatic disease in peritoneum and Liver. Does not chemotherapy. He comes in for lower GI bleeding. He will undergo a flexible sigmoidoscopy. Charges/Coding Visit Charges Inpatient E&M: 41445 Init Hosp L3 11/06/24 185 <Electronically signed by Ari Silvestre DO> Cosigner Signature (if applicable): CC: MARYAM Olson~ Signed [facility] Work Phone: 1(171) 954-609304-08-2025 Consult note [facility] Medical Records Department [address] [place] [address] Anesthesia Postop Eval II 11/06/242038 MR#: [id number] Acct: [id number] Name: JARED RAYMOND Rep #:[id number] : 1945 79 From: Keo Burgos MD PCP: MARYAM Guerra Status:ADM IN Y Race: C Location: [place] [address] 3-1 Anesthesia Postop Eval I Sum Postop Eval Completion status Anesthesia document: Postop Eval 1 completed: Yes Anesthesia Postop Eval I Summary Anesthesia Postop Eval I Summary: Anesthesia Postop Eval I: Assessment Summary Airway patent Yes 11/06/24 19:59 Spontaneous unlabored Yes 11/06/24 19:59 respirations Mental status Awake,Calm 11/06/24 19:59 nausea No 11/06/24 19:59 Vomiting No 11/06/24 19:59 Anesthesia Postop Eval I: Fluid Summary Crystalloid volume administer 10 11/06/24 19:59 (ml) Colloids volume administered ( ml) Blood Product volume administered (ml) Total IV fluid infused 10 11/06/24 19:59 Anesthesia Postop Eval I: Summary Notes Anesthesia Complication No 11/06/24 19:59 Anesthesia Complication Comment: Post-operative progress note Anesthesia: Postop Eval II Evaluation Mental status: Awake and Calm Pain Level: 0 nausea: No Vomiting: No Complications Anesthesia Complication: No 11/06/242039 quincy DAVIS> Date _ Keo Burgos MD Cosigner Signature: Date CC: ~ Signed [facility]04-08-2025 Consult note [facility] Medical Records Department [address] [address] Anesthesia Postop Eval I 11/06/241948 MR#: [id number] Acct: [id number] Name: JARED RAYMOND Rep #:[id number] : 1945 79 From: Keo Burgos MD PCP: MARYAM Guerra Status:ADM IN Y Race: C Location: [address] Anesthesia: Postop Eval I Current Vital Signs Temperature: 98 F Pulse Rate: 70 Blood Pressure: 175/76 Respiratory Rate: 16 Pulse Ox: 97 Oxygen Delivery Method: Room Air Assessment Airway patent: Yes Spontaneous unlabored respirations: Yes Mental status: Awake and Calm nausea: No Vomiting: No Anesthesia Complication: No Fluid Hydration Crystalloid volume administer (ml): 10 Total IV fluid infused: 10 Progress Note Anesthesia document: Postop Eval 1 completed: Yes 11/06/241999 quincy DAVSI> Date _ Keo Vela Signature: Date CC: ~ Signed [facility]04-08-2025 Procedure note [facility] Medical Records Department [address] [place] [address] Colonoscopy Report MR#: [id number] Acct: [id number] Name: JARED RAYMOND Rep #:[id number] : 1945 79 From: Ari Silvestre DO PCP: MARYAM Guerra Status:ADM IN Patient Name: Jared Raymond Procedure Date: 11/06/2024 6:51 PM Date of : 1945 Age: 79 Procedure: Colonoscopy Indications: Hematochezia Providers: Ari Silvestre DO Medicines: Monitored Anesthesia Care, See the Anesthesia note for documentation of the administered medications Patient Profile: This is an 79 year old male. Refer to note in patient chart for documentation of history and physical. Last Colonoscopy: 1 year ago. Complications: No immediate complications. Procedure: Pre-Anesthesia Assessment: - Prior to the procedure, a History and Physical was performed, and patient medications and allergies were reviewed. The patient is competent. The risks and benefits of the procedure and the sedation options and risks were discussed with the patient. All questions were answered and informed consent was obtained. Patient identification and proposed procedure were verified by the physician in the pre-procedure area. Mental Status Examination: alert and oriented. Airway Examination: normal oropharyngeal airway and neck mobility. Respiratory Examination: clear to auscultation. CV Examination: normal. Prophylactic Antibiotics: The patient does not require prophylactic antibiotics. Prior Anticoagulants: The patient has taken no anticoagulant or antiplatelet agents. ASA Grade Assessment: III - A patient with severe systemic disease. After reviewing the risks and benefits, the patient was deemed in satisfactory condition to undergo the procedure. The anesthesia plan was to use monitored anesthesia care (MAC). Immediately prior to administration of medications, the patient was re-assessed for adequacy to receive sedatives. The heart rate, respiratory rate, oxygen saturations, blood pressure, adequacy of pulmonary ventilation, and response to care were monitored throughout the procedure. The physical status of the patient was re-assessed after the procedure. After I obtained informed consent, the scope was passed under direct vision. Throughout the procedure, the patient's blood pressure, pulse, and oxygen saturations were monitored continuously. The Colonoscope was introduced through the anus and advanced to the terminal ileum. After I obtained informed consent, the scope was passed under direct vision. Throughout the procedure, the patient's blood pressure, pulse, and oxygen saturations were monitored continuously.The colonoscopy was performed without difficulty. The patient tolerated the procedure well. The quality of the bowel preparation was 90 percent obscured. The terminal ileum, ileocecal valve, appendiceal orifice, and rectum were photographed. Scope In: 7:26:53 PM Scope Withdrawal Time 0 hours 8 minutes 3 seconds Scope Out: 7:40:32 PM Total Procedure Duration Time 0 hours 13 minutes 39 seconds Findings: The perianal and digital rectal examinations were normal. Hematin (altered blood/pbzfqj-rmstbc-utlz material) was found in the entire colon. There was evidence of a prior end-to-side ileo-colonic anastomosis in the ascending colon. This was patent and was characterized by ulceration and an intact staple line. The anastomosis was traversed. To stop active bleeding, one hemostatic clip was successfully placed. 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 There was no bleeding at the end of the procedure. Coagulation for bleeding prevention using argon plasma at 0.5 liters/minute and 20 pond was successful. Estimated blood loss was minimal. The terminal ileum appeared normal. Impression: - No specimens collected. Recommendation: - [facility]. - Clear liquid diet today. - Continue present medications. - Repeat colonoscopy in 2 days because the bowel preparation was poor. Procedure Code(s): --- Professional --- 06931, Colonoscopy, flexible; with control of bleeding, any method CPT copyright 2021 [employer]. All rights reserved. The codes documented in this report are preliminary and upon professional fee coder review may be revised to meet current compliance requirements. Ari Silvestre DO 11/06/2024 7:48:14 PM This report has been signed electronically. Number of Addenda: 0 Note Initiated On: 11/06/2024 6:51 PM 11/06/241947 Date _ Ari Nirmala Phelpsigner Signature: Date (if indicated) CC: CITY ASSESSOR-C Mariela Olson; Ari Nirmala, ~ Date Dictated: 11/06/241850 Date Transcribed: Database Analyst: RF Signed [facility]04-08-2025 Consult note [facility] Medical Records Department [address] [place] [address] Pre-Anesthesia Evaluation 11/06/241858 MR#: [id number] Acct: [id number] Name: JARED RAYMOND Rep #:[id number] : 1945 79 From: Keo Burgos MD PCP: MARYAM Guerra Status:ADM IN Y Race: C Location: [place] [address] 3-1 ASA Classification* ASA Classification ASA Classification: 3 Assessment & Plan Anesthesia* Anesthesia Assessment Anesthesia Assessment: Discussed sedation and/or anesthesia options, risks, benefits, and alternatives with patient/parents/legal guardian/POA. Questions invited. The patient/parents/legal guardian/POA seems to understand and agrees to proceedwith anesthesia plan. Reviewed the physical assessment, medical history, allergy history and patient home medications list prior to surgery/procedure/anesthetic and documented any changes. Performed airway and anesthesia risk assessments. Anesthesia Type Anesthesia Type: MAC History Source History Obtained from:: Patient and Chart Anesthesia Focused Assessment* Temperature: 98.4 F Pulse Rate: 71 Blood Pressure: 169/80 Respiratory Rate: 16 Pulse Ox: 100 Oxygen Delivery Method: Room Air Airway Assessment Mouth opens: >3 cm Mallampati Score: I Teeth Condition: Dentures (Patient has full upper and lower dentures. They are in) Neck Range of motion (ROM): Full ROM Focused Labs Anesthesia Preop lab: CBC WBC 6.5 K/mm3 (4.4-11.0) 11/06/24 16:30 11/06/24 RBC 3.83 M/mm3 (4.6-6.2) L 11/06/24 16:30 11/06/24 Hgb 11.9 g/dL (13.0-16.5) L 11/06/24 16:30 5 Hct 33.9 % (40-54) L 11/06/24 16:30 11/06/24 Plt Count 290 K/mm3 (150-450) 11/06/24 16:30 11/06/24 CHEMISTRY Potassium 4.1 mmol/L (3.3-5.1) 11/06/24 04:11/06/24 Sodium 130 mmol/L (133-145) L 11/06/24 04:23 11/06/24 Magnesium 2.3 mg/dL (1.5-2.2) H 11/05/24 22:42 11/05/24 Phosphorus 2.6 mg/dL (2.7-4.5) L 11/06/24 04:23 11/06/24 BUN 14 mg/dL (4-19) 11/06/24 04:23 11/06/24 Creatinine 0.97 mg/dL (0.70-1.20) 11/06/24 04:23 11/06/24 Glucose 99 mg/dL (70-99) 11/06/24 04:23 11/06/24 POC Glucose 113 mg/dL (74-106) H 04/27/24 06:06 04/27/24 TSH 1.900 uIU/mL (0.300-4.200) 11/06/24 04:23 03/25 COAG PT 12.2 SECONDS (11.7-14.9) 11/05/24 22:42 Pre-Assessment Diagnosis/Proposed Procedure Planned Operative Procedure(s): Flexible sigmoidoscopy Anesthesia History Anesthesia History - manager immunology: Anesthesia History - manager immunology Hx Hospitalization Yes: 06/09/24 BIOPSY OF LIVER 06/13/24 10:56 , TOXIC SHOCK- PASSED OUT Any Problems With Anesthesia No 06/13/24 10:56 Cholinesterase deficiency No 06/13/24 10:56 You/Your Family Experience No 06/13/24 10:56 fever (hyperthermia) with Relationship Recent Exposure to Contagious No 06/22/24 10:29 Disease Does patient have nerve No 06/13/24 10:56 stimulator Patient instructed to have device shut off --Does patient have Pacemaker or ICD? When Was Last Pacemaker Check QUESTION #4 FULL TEXT: You/Your Family Experience fever (hyperthermia) with Anesthesia Last Oral Intake Last Oral intake: Last Oral Intake NPO since Meds taken in AM with sips of water? Meds patient instructed to take am of surgery Any additional information?: Yes NPO since: 00:00 Meds taken in AM with sips of water?: Yes PONV PONV - manager immunology: PONV - manager immunology Female HX of Motion Sickness HX of N/V After Surgery Non-Smoker Duration of Surgery greater than 60 minutes Number of Risk Factors PONV Score Height & Weight Height & Weight: Anesthesia: Height & Weight Height 5 ft 7 in 11/06/24 09:29 Weight: 72 kg 11/06/24 09:29 Body Mass Index (BMI) 24.8 11/06/24 05:23 Respiratory Assessment Respiratory Assessment - manager immunology: Respiratory Tract Infection Hx - manager immunology Hx Respiratory Tract Infection Yes: Patient is recovering 06/22/24 12:11 from a cold/sinus congestion STOP Sleep Apnea STOP Sleep Apnea - manager immunology: STOP Sleep Apnea - manager immunology Hx Hypertension Yes 11/06/24 13:19 Hx Sleep Apnea No 11/06/24 03:38 CPAP No 06/22/24 13:56 BIPAP No 06/13/24 10:56 Do you snore loudly (louder No 11/06/24 03:38 than talking or can be heard Do you often feel tired/ No 11/06/24 03:38 fatigued/ sleepy during daytime? Has anyone observed you stop No 11/06/24 03:38 breathing during sleep? STOP Results Negative 11/06/24 03:38 QUESTION #5 FULL TEXT : Do you snore loudly (louder than talking or can be heard through closeddoors)? 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 Specify any problems Hx of Preganancy in last 3 N/A 11/06/24 03:38 Months Nurse Filling Out Transfusion JSNOW 11/06/24 03:38 & Questions: Date: 11/06/24 11/06/24 03:38 Time: 03:49 11/06/24 03:38 Patient unable to answer at this time (ie. confused, unrespo /Reproduction History /Reproductive History - manager immunology: /Reproductive Hx- manager immunology Hx Now Gestational Age (in weeks): EDC: Hx Hx Para Hx Section SAB No 06/13/24 10:56 Active Medications Active Medications: Current Medications Generic Name Dose Route Start Last Admin Trade Name Freq PRN Reason Stop Dose Admin Amlodipine Besylate 5 mg 11/06/24 10:00 11/06/24 09:51 Amlodipine 5 Mg Tablet PO 5 mg DAILY EVITA Administration Protocol Hydralazine HCl 10 mg 11/06/24 03:28 Hydralazine 20 Mg/Ml Vial IV Q8H PRN PRN SBP GREATER THAN 160 Protocol Pantoprazole Sodium 40 mg/ 110 mls @ 330 mls/hr 11/06/24 03:28 11/06/24 09:52 Sodium Chloride IV Infused Q12 EVITA Infusion Sodium Chloride 100 mls @ 15 mls/hr 11/06/24 03:52 IV .Q6H40M PRN Saline Flush Sodium Chloride 100 mls @ 15 mls/hr 11/06/24 03:52 IV .Q6H40M PRN Additional IVPB Infusion Metoprolol Tartrate 25 mg 11/06/24 10:00 11/06/24 09:51 Metoprolol Tartrate 25 Mg Tablet PO 25 mg DAILY EVITA Administration Protocol Morphine Sulfate 2 mg 11/06/24 03:28 Morphine 2 Mg/Ml Syringe IV Q4H PRN PRN Pain Score 6-10 Ondansetron HCl 4 mg 11/06/24 03:28 Ondansetron 4 Mg/2 Ml Vial IV Q8H PRN PRN NAUSEA/VOMITING Promethazine HCl 25 mg 11/06/24 03:28 Promethazine 25 Mg/Ml Syringe IM Q6H PRN PRN Breakthrough Nausea/Vomiting Sodium Chloride 10 - 40 ml 11/06/24 03:52 0.9% Saline Lock 10 Ml Syringe IV UD PRN SALINE FLUSH PFSH Medical History Encounter for education Pre-op testing Wears dentures Arthritis Anemia Gastric reflux Former smoker History of edema History of echocardiogram History of stress test Cardiology follow-up encounter Aortic stenosis Preop cardiovascular exam Colon cancer Overweight (BMI 25.0-29.9) Colonic mass Coronary artery disease 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 Chronic hypertension Acute alteration in mental status Neuropathy Vasectomy planned Hyponatremia TIA (transient ischemic attack) CVA (cerebral vascular accident) Hypertension History of stroke Tobacco use Benign essential hypertension Home Medications ?Medication ?Instructions ?Recorded ?Last Taken ?Type amlodipine 5 mg tablet 5 mg PO DAILY HEART 05/16/24 11/05/24 History clonidine HCl 0.1 mg tablet 0.1 mg PO DAILY PRN hbp 10/06/24 History ferrous sulfate 325 mg (65 mg 325 mg PO DAILY 30 days #60 tabs 06/10/24 11/05/24 Rx iron) tablet (Iron (ferrous sulfate)) metoprolol tartrate 50 mg tablet 25 mg PO QDAY Blood p ressure/heart 10/17/24 11/05/24 History rat oxycodone 5 mg tablet 5 mg PO Q6H PRN pain 7 days #28 10/24/24 Unknown Rx tabs Allergy/AdvReac Type Severity Reaction Status Date / Time fentanyl AdvReac Low blood Verified 11/06/24 03:59 pressure Family History Father Arthritis Alcohol abuse Mother Alcohol abuse Liver disease Surgical History History of hemicolectomy (04/25/24) H/O vasectomy S/P right hemicolectomy History of tonsillectomy History of appendectomy 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 11/06/241906 quincy DAVIS> Date _ Keo Burgos MD Cosigner Signature: Date CC: ~ Signed [facility]04-08-2025 Consult note [facility] Medical Records Department [address] [place] [address] Consultation - GI 11/06/24 1854 MR#: [id number] Acct: [id number] Name: JARED RAYMOND Rep #:[id number] : 1945 79 From: Ari Friend DO PCP: MARYAM Guerra Status:ADM IN Location: [place] [address] HPI Consult Data Date of Consult: 11/06/24 HPI Narrative Reason for Consultation: GI bleed HPI Narrative: JARED RAYMOND, is a 79 M who presents for the evaluation of lower GI bleed. He has a past medical history of hypertension and colon cancer. He states that today he went to the bathroom and he had a large amount of bright red blood. Hestates that this has happened 2 or 3 times since 8 PM. He reportsthat with hisprevious bout of blood per rectum he needed emergent surgery and multiple units of blood. Patient denies any history of bleeding disorder or blood thinner use. He denies any known sick contact. He states there is been no chest pain shortness of breath or dizziness or syncope. However with the recurrent episodes of blood per rectum he presents for evaluation. He originally presented to [facility] ED on 04/11/2024 with c/o hematochezia and anemia. CTA of the chest abdomen and pelvis with IV contrast on 04/11/2024 showed mass in the ascending colon, multiple nonspecific enlarged mediastinal nodes. He had colonoscopy on 04/13/2024 which showed an ulcerated, partially obstructing mass at the hepatic flexure. He underwent laparoscopic right hemicolectomy on 04/27/2024. Pathology showed invasive adenocarcinoma, tumor extends to the bistroserosal surface, with lymphovascular and perineural invasion, no gross tumor deposits, lymph nodes 15 out of 16 positive, MSI stable. Pathologic staging pT4 pN2b. 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 Chronic hypertension Acute alteration in mental status Neuropathy Vasectomy planned Hyponatremia TIA (transient ischemic attack) CVA (cerebral vascular accident) Hypertension History of stroke Tobacco use Benign essential hypertension Home Medications ?Medication ?Instructions ?Recorded ?Last Taken ?Type amlodipine 5 mg tablet 5 mg PO DAILY HEART 05/16/24 11/05/24 History clonidine HCl 0.1 mg tablet 0.1 mg PO DAILY PRN hbp 10/06/24 History ferrous sulfate 325 mg (65 mg 325 mg PO DAILY 30 days #60 tabs 06/10/24 11/05/24 Rx iron) tablet (Iron (ferrous sulfate)) metoprolol tartrate 50 mg tablet 25 mg PO QDAY Blood p ressure/heart 10/17/24 11/05/24 History rat oxycodone 5 mg tablet 5 mg PO Q6H PRN pain 7 days #28 10/24/24 Unknown Rx tabs Allergy/AdvReac Type Severity Reaction Status Date / Time fentanyl AdvReac Low blood Verified 11/06/24 03:59 pressure Family History Father Arthritis Alcohol abuse Mother Alcohol abuse Liver disease Surgical History History of hemicolectomy (04/25/24) H/O vasectomy S/P right hemicolectomy History of tonsillectomy History of appendectomy 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) Social History Smoking Status: Former smoker alcohol intake: never substance use type: does not use ROS Constitutional Constitutional: Denies fatigue, fever(s), poor appetite, weight gain or weight loss Gastrointestinal Gastrointestinal: Denies belching, bloating, change in bowel habits, change in stool character, chewing difficulty, coffee ground emesis, constipation, cramping, diarrhea, dyspepsia, dysphagia, earlysatiety, excessive flatus, fecalincontinence, heartburn, hematemesis, hematochezia, hemorrhoids, loose stools, melena, nausea, odynophagia, rectal bleeding, tenesmus, vomiting or weight changes Physical Exam Const alert and no apparent distress HEENT head/scalp atraumatic and moist oral mucous membranes Resp normal respiratory effort, no retractions, no use of accessory muscles and clearto auscultation bilaterally Cardio regular rate, regular rhythm, S1 normal heart sound and S2 normal heart sound GI normal to inspection, nondistended, normoactive bowel sounds, soft to palpation,non-tender and non-distended Extremity normal to inspection and full ROM Neuro Sensorium / Orientation: awake and alert Lab / Micro Data 11/06/24 16:30 11/06/24 04:23 Labs: Laboratory Results - last 24 hr 11/05/24 22:42: WBC Cancelled, Corrected WBC Cancelled, RBC Cancelled, Hgb Cancelled, Hct Cancelled, MCV Cancelled, MCH Cancelled, MCHC Cancelled, RDW Std Deviation Cancelled, RDW Coeff of Deepika Cancelled, Plt Count Cancelled, MPV Cancelled, Immature Gran % (Auto) Cancelled, Neut % (Auto) Cancelled, Lymph % (Auto) Cancelled, Josephine % (Auto) Cancelled, Eos % (Auto) Cancelled, Baso % (Auto)Cancelled, Absolute Neuts (auto) Cancelled, Absolute Lymphs (auto) Cancelled, Total Counted Cancelled, Neutrophils % (Manual) Cancelled, Band Neutrophils % Cancelled, Lymphocytes % (Manual) Cancelled, Monocytes %(Manual) Cancelled, Eosinophils % (Manual) Cancelled, Basophils % (Manual) Cancelled, Metamyelocytes% Cancelled, Myelocytes % Cancelled, Promyelocytes % Cancelled, Blast Cells % Cancelled, Plasma Cell % (Manual) Cancelled, Other Cells % Cancelled, Nucleated RBC % Cancelled, Nucleated RBCs/100 WBC Cancelled, Differential Comment Cancelled, Diff Path Review Cancelled, Hypersegmented Neuts Cancelled, Atypical Lymphocytes Cancelled, Reactive Lymphocytes Cancelled, Smudge Cells Cancelled, Toxic Granulation Cancelled, Toxic Vacuolation Cancelled, Dohle Bodies Cancelled, Deepa Rods Cancelled, Platelet Estimate Cancelled, Plt Morphology Comment Cancelled, RBC Morphology Cancelled 11/05/24 22:42: RBC Morphology Cancelled, Polychromasia Cancelled, HypochromasiaCancelled, Basophilic Stippling Cancelled, Anisocytosis Cancelled, Microcytosis Cancelled, Macrocytosis Cancelled, Spherocytes Cancelled, Sickle Cells Cancelled, Target Cells Cancelled, Tear Drop Cells Cancelled, Ovalocytes Cancelled, Stomatocytes Cancelled, Scott-[place]pp[place] Bodies Cancelled, Ponsford Cells Cancelled, Bite Cells Cancelled, Crenated Cell Cancelled, Acanthocytes (Spur) Cancelled, Rouleaux Cancelled, Schistocytes Cancelled, PT 12.2, INR 0.9, APTT 22.1 L, Sodium 126 L, Potassium 4.0, Chloride 90 L, Carbon Dioxide 23.8, Anion Gap 12, BUN 14, Creatinine 0.92, Estim Creat Clear Calc 59.87, Est GFR (MDRD) Non-Af 84, BUN/Creatinine Ratio 15.4, Glucose 110 H, Lactic Acid < 1.0, Calcium 9.0, Magnesium 2.3 H, Blood Type O POSITIVE, Antibody Screen NEGATIVE 11/05/24 23:15: WBC 9.0, RBC 3.77 L, Hgb 11.5 L, Hct 32.9 L, MCV 87.3, MCH 30.5,MCHC 35.0, RDW Std Deviation 39.0, RDW Coeff of Deepika 12.2, Plt Count 274, MPV 8.7, Immature Gran % (Auto) 0.600, Neut % (Auto) 76.8 H, Lymph % (Auto) 12.9 L, Josephine % (Auto) 8.9, Eos % (Auto) 0.6, Baso % (Auto) 0.2, Absolute Neuts (auto) 6.9, Absolute Lymphs (auto) 1.16, Nucleated RBC % 0 11/06/24 04:23: WBC 7.9, RBC 4.04 L, Hgb 12.3 L, Hct 35.2 L, MCV 87.1, MCH 30.4,MCHC 34.9, RDW Std Deviation 39.1, RDW Coeff of Deepika 12.2, Plt Count 303, MPV 8.7, Immature Gran % (Auto) 0.300, Neut % (Auto) 74.5 H, Lymph % (Auto) 13.7 L, Josephine % (Auto) 9.8, Eos % (Auto) 1.4, Baso % (Auto) 0.3, Absolute Neuts (auto) 5.9, Absolute Lymphs (auto) 1.08, Nucleated RBC % 0, Sodium 130 L, Potassium 4.1, Chloride 96 L, Carbon Dioxide 21.7, Anion Gap 12, BUN 14, Creatinine 0.97, Estim Creat Clear Calc 56.79, Est GFR (MDRD) Non-Af 79, BUN/Creatinine Ratio 14.4, Glucose 99, Serum Osmolality 279 L, Calcium 8.8, Phosphorus 2.6 L, Iron 50L, TIBC 270, Iron Saturation 19.0, Unsaturated IBC 220 L, Ferritin 138, Total Bilirubin 0.64, AST 22, ALT 14, Alkaline Phosphatase 101, Troponin T High Sens 18, Total Protein 6.7, Albumin 3.9, Globulin 2.8, Albumin/Globulin Ratio 1.4, Vitamin B12 790, TSH 1.900 11/06/24 04:50: Urine Osmolality 363 11/06/24 05:59: Troponin T Hi Sens 2 Hr 23 H 11/06/24 08:39: Troponin T Hi Sens 4Hr 19 11/06/24 16:30: WBC 6.5, RBC 3.83 L, Hgb 11.9 L, Hct 33.9 L, MCV 88.5, MCH 31.1,MCHC 35.1, RDW Std Deviation 39.8, RDW Coeff of Deepika 12.3, Plt Count 290, MPV 9.1, Immature Gran % (Auto) 0.300, Neut % (Auto) 78.1 H, Lymph % (Auto) 9.1 L, Josephine % (Auto) 11.9 H, Eos % (Auto) 0.3, Baso % (Auto) 0.3, Absolute Neuts (auto) 5.0, Absolute Lymphs (auto) 0.59 L, Nucleated RBC % 0 Micro: Microbiology 11/06/24 06:10 Stool Stool Lactoferrin - Final 11/06/24 06:10 Stool Enteric Bacteriology - Final 11/06/24 06:10 Stool Clostridioides difficile (PCR) - Final 11/05/24 23:44 Stool Stool Occult Blood (EDINSNO) - Final Occult Blood Positive Imaging Radiology Impression Abdomen/Pelvis CTA 11/05/24 22:46 IMPRESSION: 1. Extensive calcified and noncalcified plaque throughout the abdominal aorta and iliac arteries without evidence of acute dissection or aneurysm. 2. 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 And other findings as described above. 3. Multiple uncinate bilobar low-attenuation hepatic lesions, concerning for metastasis. 4. Stable large central mesenteric mass with obscuration of the SMV as describedabove. 5. Extensive retroperitoneal adenopathy, unchanged. 6. Other stable findings as described above. Reading [facility] Assessment & Plan Assessment/Plan (1) GI (gastrointestinal bleed): QUALIFIERS: GI bleed type/associated pathology: unspecified gastrointestinal hemorrhage type Qualified Code(s): K92.2 - Gastrointestinal hemorrhage, unspecified PLAN: Hg stable. GI on consult. CTA A/P no obvious source of bleeding. Suspect lower source Follow up CBC. PLAN: Plan An 79 yo with h/o 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: He had a Right colon cancer, s/p right hemicolectomy. Pathologic stage pT4 PN2b. Prognostic stage IIIC. CT chest, abdomen and pelvis shows multiple nonspecific mediastinal lymph nodes, hypodensity in the liver. PET/CT on 05/29/2024 showed Hypermetabolic activities in subcarinal node, R hilar node, liver and LE/GEJ area. Biopsy of esophagus and stomach were negative. Biopsy of mediastinal nodes were negative. He declined chemotherapy was suggested. Comes for follow up, CT on 10/24/2024 shows metastatic disease in peritoneum and Liver. Does not chemotherapy. He comes in for lower GI bleeding. He will undergo a flexible s igmoidoscopy. Charges/Coding Visit Charges Inpatient E&M: 50699 Init Hosp L3 11/06/24 9435 Cosigner Signature (if applicable): CC: CITY ASSESSORCatherine Olson~ Signed [facility]04-08-2025 Progress note Author Stevie Harrington [facility] Note Date/Time November 06, 2024 2:48 pm [facility] Medical Records Department [address] [place] [address] Progress Note - Hospitalist 11/06/24726 MR#: [id number] Acct: [id number] Name: CHRISJARED Rodrigues Rep #:[id number] : 1945 79 From: Stevie Harrington DO PCP: MARYAM Guerra Status:ADM IN Location: [place] [address] Reason for Visit Reason for Visit: Diagnoses Malignant neoplasm of colon, unspecified (11/06/24) Secondary and unspecified malignant neoplasm of intra-abdominal lymph nodes (11/06/24) Anemia, unspecified (11/06/24) Hypo-osmolality and hyponatremia (11/06/24) Essential (primary) hypertension (11/06/24) Gastrointestinal hemorrhage, unspecified (11/06/24) Generalized abdominal pain (11/06/24) Localized enlarged lymph nodes (11/06/24) Patient's noncompliance with other medical treatment and regimen due to unspecified reason (11/06/24) Subjective Subjective Still having hematochezia. Objective Data Objective Data Vital Signs: Vital Signs Temp Pulse Resp BP Pulse Ox O2 Del Method 36.7 C 87 18 169/70 H 100 Room Air 11/06/24 03:43 11/06/24 03:43 11/06/24 03:43 11/06/24 06:45 11/06/24 03:43 11/06/24 03:45 Oxygen Delivery Method Room Air Weight: 72 kg Body Mass Index (BMI) 24.8 Intake & Output: Intake and Output for Last 24 Hours 11/04/24 11/05/24 11/06/24 23:59 23:59 23:59 Intake Total 620 / 620 Balance 620 / 620 Lab / Micro Data 11/06/24 04:23 11/06/24 04:23 Labs: Laboratory Results - last 24 hr 11/05/24 22:42: WBC Cancelled, Corrected WBC Cancelled, RBC Cancelled, Hgb Cancelled, Hct Cancelled, MCV Cancelled, MCH Cancelled, MCHC Cancelled, RDW Std Deviation Cancelled, RDW Coeff of Deepika Cancelled, Plt Count Cancelled, MPV Cancelled, Immature Gran % (Auto) Cancelled, Neut % (Auto) Cancelled, Lymph % (Auto) Cancelled, Josephine % (Auto) Cancelled, Eos % (Auto) Cancelled, Baso % (Auto)Cancelled, Absolute Neuts (auto) Cancelled, Absolute Lymphs (auto) Cancelled, Total Counted Cancelled, Neutrophils % (Manual) Cancelled, Band Neutrophils % Cancelled, Lymphocytes % (Manual) Cancelled, Monocytes % (Manual) Cancelled, Eosinophils % (Manual) Cancelled, Basophils % (Manual) Cancelled, Metamyelocytes% Cancelled, Myelocytes % Cancelled, Promyelocytes % Cancelled, Blast Cells % Cancelled, Plasma Cell % (Manual) Cancelled, Other Cells % Cancelled, Nucleated RBC % Cancelled, Nucleated RBCs/100 WBC Cancelled, Differential Comment Cancelled, Diff Path Review Cancelled, Hypersegmented Neuts Cancelled, Atypical Lymphocytes Cancelled, Reactive Lymphocytes Cancelled, Smudge Cells Cancelled, Toxic Granulation Cancelled, Toxic Vacuolation Cancelled, Dohle Bodies Cancelled, Deepa Rods Cancelled, Platelet Estimate Cancelled, Plt Morphology Comment Cancelled, RBC Morphology Cancelled 11/05/24 22:42: RBC Morphology Cancelled, Polychromasia Cancelled, HypochromasiaCancelled, Basophilic Stippling Cancelled, Anisocytosis Cancelled, Microcytosis Cancelled, Macrocytosis Cancelled, Spherocytes Cancelled, Sickle Cells Cancelled, Target Cells Cancelled, Tear Drop Cells Cancelled, Ovalocytes Cancelled, Stomatocytes Cancelled, Scott-[place]pp[place] Bodies Cancelled, Ponsford Cells Cancelled, Bite Cells Cancelled, Crenated Cell Cancelled, Acanthocytes (Spur) Cancelled, Rouleaux Cancelled, Schistocytes Cancelled, PT 12.2, INR 0.9, APTT 22.1 L, Sodium 126 L, Potassium 4.0, Chloride 90 L, Carbon Dioxide 23.8, Anion Gap 12, BUN 14, Creatinine 0.92, Estim Creat Clear Calc 59.87, Est GFR (MDRD) Non-Af 84, BUN/Creatinine Ratio 15.4, Glucose 110 H, Lactic Acid < 1.0, Calcium 9.0, Magnesium 2.3 H, Blood Type O POSITIVE, Antibody Screen NEGATIVE 11/05/24 23:15: WBC 9.0, RBC 3.77 L, Hgb 11.5 L, Hct 32.9 L, MCV 87.3, MCH 30.5,MCHC 35.0, RDW Std Deviation 39.0, RDW Coeff of Deepika 12.2, Plt Count 274, MPV 8.7, Immature Gran % (Auto) 0.600, Neut % (Auto) 76.8 H, Lymph % (Auto) 12.9 L, Josephine % (Auto) 8.9, Eos % (Auto) 0.6, Baso % (Auto) 0.2, Absolute Neuts (auto) 6.9, Absolute Lymphs (auto) 1.16, Nucleated RBC % 0 11/06/24 04:23: WBC 7.9, RBC 4.04 L, Hgb 12.3 L, Hct 35.2 L, MCV 87.1, MCH 30.4,MCHC 34.9, RDW Std Deviation 39.1, RDW Coeff of Deepika 12.2, Plt Count 303, MPV 8.7, Immature Gran % (Auto) 0.300, Neut % (Auto) 74.5 H, Lymph % (Auto) 13.7 L, Josephine % (Auto) 9.8, Eos % (Auto) 1.4, Baso % (Auto) 0.3, Absolute Neuts (auto) 5.9, Absolute Lymphs (auto) 1.08, Nucleated RBC % 0, Sodium 130 L, Potassium 4.1, Chloride 96 L, Carbon Dioxide 21.7, Anion Gap 12, BUN 14, Creatinine 0.97, Estim Creat Clear Calc 56.79, Est GFR (MDRD) Non-Af 79, BUN/Creatinine Ratio 14.4, Glucose 99, Serum Osmolality 279 L, Calcium 8.8, Phosphorus 2.6 L, Iron 50L, TIBC 270, Iron Saturation 19.0, Unsaturated IBC 220 L, Ferritin 138, Total Bilirubin 0.64, AST 22, ALT 14, Alkaline Phosphatase 101, Troponin T High Sens 18, Total Protein 6.7, Albumin 3.9, Globulin 2.8, Albumin/Globulin Ratio 1.4, Vitamin B12 790, TSH 1.900 11/06/24 04:50: Urine Osmolality 363 11/06/24 05:59: Troponin T Hi Sens 2 Hr 23 H Micro: Microbiology 11/05/24 23:44 Stool Stool Occult Blood ([facility]) - Final Occult Blood Positive Radiography Diagnostic Testing: Radiology Impression Abdomen/Pelvis CTA 11/05/24 22:46 IMPRESSION: 1. Extensive calcified and noncalcified plaque throughout the abdominal aorta and iliac arteries without evidence of acute dissection or aneurysm. 2. 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 And other findings as described above. 3. Multiple uncinate bilobar low-attenuation hepatic lesions, concerning for metastasis. 4. Stable large central mesenteric mass with obscuration of the SMV as describedabove. 5. Extensive retroperitoneal adenopathy, unchanged. 6. Other stable findings as described above. Reading Location: [facility] Physical Exam Const alert and no apparent distress HEENT head/scalp atraumatic and moist oral mucous membranes Resp normal respiratory effort, no retractions, no use of accessory muscles and clearto auscultation bilaterally Cardio regular rate, regular rhythm, S1 normal heart sound and S2 normal heart sound GI normal to inspection, nondistended, normoactive bowel sounds, soft to palpation,non-tender and non-distended Extremity normal to inspection and full ROM Neuro Sensorium / Orientation: awake and alert Assessment & Plan Assessment/Plan (1) GI (gastrointestinal bleed): QUALIFIERS: GI bleed type/associated pathology: unspecified gastrointestinal hemorrhage type Qualified Code(s): K92.2 - Gastrointestinal hemorrhage, unspecified PLAN: Hg stable. GI on consult. CTA A/P no obvious source of bleeding. Suspect lower source Follow up CBC. PLAN: Plan Colon cancer: * multiple uncinate bilobar hepatic lesions, concerning for metastasis. Stable large central mesenteri mass with obscuration of the SMV. Extensive retroperitoneal adenopathy, unchanged. * Last saw oncology 10/31. Stage IIIC. Per Dr. Hernandez's note, declined chemotherapy. Daughter wants him to try Ivermectin. Recommended for second opinion. Hypertensive urgency * resume amlodipine, metoprolol * PRN hydralazine VTE prophylaxis: SCDs. DW patient's at bedside. Charges/Coding Visit Charges Inpatient E&M: 76289 Subs Hosp L2 11/06/24 1448 <Electronically signed by Stevie Harrington DO> Cosigner Signature (if applicable): CC: ~ Signed [facility] Work Phone: [phone] Progress note [facility] Medical Records Department [address] [place] [address] Progress Note - Hospitalist 11/06/24726 MR#: [id number] Acct: [id number] Name: JARED RAYMOND Rep #:[id number] : 1945 79 From: Stevie Harrington DO PCP: MARYAM Guerra Status:ADM IN Location: [place] [address] Reason for Visit Reason for Visit: Diagnoses Malignant neoplasm of colon, unspecified (11/06/24) Secondary and unspecified malignant neoplasm of intra-abdominal lymph nodes (11/06/24) Anemia, unspecified (11/06/24) Hypo-osmolality and hyponatremia (11/06/24) Essential (primary) hypertension (11/06/24) Gastrointestinal hemorrhage, unspecified (11/06/24) Generalized abdominal pain (11/06/24) Localized enlarged lymph nodes (11/06/24) Patient's noncompliance with other medical treatment and regimen due to unspecified reason (11/06/24) Subjective Subjective Still having hematochezia. Objective Data Objective Data Vital Signs: Vital Signs Temp Pulse Resp BP Pulse Ox O2 Del Method 36.7 C 87 18 169/70 H 100 Room Air 11/06/24 03:43 11/06/24 03:43 11/06/24 03:43 11/06/24 06:45 11/06/24 03:43 11/06/24 03:45 Oxygen Delivery Method Room Air Weight: 72 kg Body Mass Index (BMI) 24.8 Intake & Output: Intake and Output for Last 24 Hours 11/04/24 11/05/24 11/06/24 23:59 23:59 23:59 Intake Total 620 / 620 Balance 620 / 620 Lab / Micro Data 11/06/24 04:23 11/06/24 04:23 Labs: Laboratory Results - last 24 hr 11/05/24 22:42: WBC Cancelled, Corrected WBC Cancelled, RBC Cancelled, Hgb Cancelled, Hct Cancelled, MCV Cancelled, MCH Cancelled, MCHC Cancelled, RDW Std Deviation Cancelled, RDW Coeff of Deepika Cancelled, Plt Count Cancelled, MPV Cancelled, Immature Gran % (Auto) Cancelled, Neut % (Auto) Cancelled, Lymph % (Auto) Cancelled, Josephine % (Auto) Cancelled, Eos % (Auto) Cancelled, Baso % (Auto)Cancelled, Absolute Neuts (auto) Cancelled, Absolute Lymphs (auto) Cancelled, Total Counted Cancelled, Neutrophils % (Manual) Cancelled, Band Neutrophils % Cancelled, Lymphocytes % (Manual) Cancelled, Monocytes %(Manual) Cancelled, Eosinophils % (Manual) Cancelled, Basophils % (Manual) Cancelled, Metamyelocytes% Cancelled, Myelocytes % Cancelled, Promyelocytes % Cancelled, Blast Cells % Cancelled, Plasma Cell % (Manual) Cancelled, Other Cells % Cancelled, Nucleated RBC % Cancelled, Nucleated RBCs/100 WBC Cancelled, Differential Comment Cancelled, Diff Path Review Cancelled, Hypersegmented Neuts Cancelled, Atypical Lymphocytes Cancelled, Reactive Lymphocytes Cancelled, Smudge Cells Cancelled, Toxic Granulation Cancelled, Toxic Vacuolation Cancelled, Dohle Bodies Cancelled, Deepa Rods Cancelled, Platelet Estimate Cancelled, Plt Morphology Comment Cancelled, RBC Morphology Cancelled 11/05/24 22:42: RBC Morphology Cancelled, Polychromasia Cancelled, HypochromasiaCancelled, Basophilic Stippling Cancelled, Anisocytosis Cancelled, Microcytosis Cancelled, Macrocytosis Cancelled, Spherocytes Cancelled, Sickle Cells Cancelled, Target Cells Cancelled, Tear Drop Cells Cancelled, Ovalocytes Cancelled, Stomatocytes Cancelled, [place] Bodies Cancelled, Tani Cells Cancelled, Bite Cells Cancelled, Crenated Cell Cancelled, Acanthocytes (Spur) Cancelled, Rouleaux Cancelled, Schistocytes Cancelled, PT 12.2, INR 0.9, APTT 22.1 L, Sodium 126 L, Potassium 4.0, Chloride 90 L, Carbon Dioxide 23.8, Anion Gap 12, BUN 14, Creatinine 0.92, Estim Creat Clear Calc 59.87, Est GFR (MDRD) Non-Af 84, BUN/Creatinine Ratio 15.4, Glucose 110 H, Lactic Acid < 1.0, Calcium 9.0, Magnesium 2.3 H, Blood Type O POSITIVE, Antibody Screen NEGATIVE 11/05/24 23:15: WBC 9.0, RBC 3.77 L, Hgb 11.5 L, Hct 32.9 L, MCV 87.3, MCH 30.5,MCHC 35.0, RDW Std Deviation 39.0, RDW Coeff of Deepika 12.2, Plt Count 274, MPV 8.7, Immature Gran % (Auto) 0.600, Neut % (Auto) 76.8 H, Lymph % (Auto) 12.9 L, Josephine % (Auto) 8.9, Eos % (Auto) 0.6, Baso % (Auto) 0.2, Absolute Neuts (auto) 6.9, Absolute Lymphs (auto) 1.16, Nucleated RBC % 0 11/06/24 04:23: WBC 7.9, RBC 4.04 L, Hgb 12.3 L, Hct 35.2 L, MCV 87.1, MCH 30.4,MCHC 34.9, RDW Std Deviation 39.1, RDW Coeff of Deepika 12.2, Plt Count 303, MPV 8.7, Immature Gran % (Auto) 0.300, Neut % (Auto) 74.5 H, Lymph % (Auto) 13.7 L, Josephine % (Auto) 9.8, Eos % (Auto) 1.4, Baso % (Auto) 0.3, Absolute Neuts (auto) 5.9, Absolute Lymphs (auto) 1.08, Nucleated RBC % 0, Sodium 130 L, Potassium 4.1, Chloride 96 L, Carbon Dioxide 21.7, Anion Gap 12, BUN 14, Creatinine 0.97, Estim Creat Clear Calc 56.79, Est GFR (MDRD) Non-Af 79, BUN/Creatinine Ratio 14.4, Glucose 99, Serum Osmolality 279 L, Calcium 8.8, Phosphorus 2.6 L, Iron 50L, TIBC 270, Iron Saturation 19.0, Unsaturated IBC 220 L, Ferritin 138, Total Bilirubin 0.64, AST 22, ALT 14, Alkaline Phosphatase 101, Troponin T High Sens 18, Total Protein 6.7, Albumin 3.9, Globulin 2.8, Albumin/Globulin Ratio 1.4, Vitamin B12 790, TSH 1.900 11/06/24 04:50: Urine Osmolality 363 11/06/24 05:59: Troponin T Hi Sens 2 Hr 23 H Micro: Microbiology 11/05/24 23:44 Stool Stool Occult Blood ([facility]) - Final Occult Blood Positive Radiography Diagnostic Testing: Radiology Impression Abdomen/Pelvis CTA 11/05/24 22:46 IMPRESSION: 1. Extensive calcified and noncalcified plaque throughout the abdominal aorta and iliac arteries without evidence of acute dissection or aneurysm. 2. 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 And other findings as described above. 3. Multiple uncinate bilobar low-attenuation hepatic lesions, concerning for metastasis. 4. Stable large central mesenteric mass with obscuration of the SMV as describedabove. 5. Extensive retroperitoneal adenopathy, unchanged. 6. Other stable findings as described above. Reading Location: [facility] Physical Exam Const alert and no apparent distress HEENT head/scalp atraumatic and moist oral mucous membranes Resp normal respiratory effort, no retractions, no use of accessory muscles and clearto auscultation bilaterally Cardio regular rate, regular rhythm, S1 normal heart sound and S2 normal heart sound GI normal to inspection, nondistended, normoactive bowel sounds, soft to palpation,non-tender and non-distended Extremity normal to inspection and full ROM Neuro Sensorium / Orientation: awake and alert Assessment & Plan Assessment/Plan (1) GI (gastrointestinal bleed): QUALIFIERS: GI bleed type/associated pathology: unspecified gastrointestinal hemorrhage type Qualified Code(s): K92.2 - Gastrointestinal hemorrhage, unspecified PLAN: Hg stable. GI on consult. CTA A/P no obvious source of bleeding. Suspect lower source Follow up CBC. PLAN: Plan Colon cancer: * multiple uncinate bilobar hepatic lesions, concerning for metastasis. Stable large central mesenteri mass with obscuration of the SMV. Extensive retroperitoneal adenopathy, unchanged. * Last saw oncology 10/31. Stage IIIC. Per Dr. Hernandez's note, declined chemotherapy. Daughter wants himto try Ivermectin. Recommended for second opinion. Hypertensive urgency * resume amlodipine, metoprolol * PRN hydralazine VTE prophylaxis: SCDs. DW patient's at bedside. Charges/Coding Visit Charges Inpatient E&M: 16932 Subs Hosp L2 11/06/24 0782 Cosigner Signature (if applicable): CC: ~ Signed [facility]04-08-2025 History and physical note Author Darrel Sanders [facility] Note Date/Time November 06, 2024 6:56 am [facility] Medical Records Department [address] [place] [id number] H&P Exam - Hospitalist 11/06/24 0145 MR#: [id number] Acct: [id number] Name: JARED RAYMOND Rep #:[id number] : 1945 79 From: Darrel Qureshi DO PCP: MARYAM Guerra Status:ADM IN Location: [place] [address] 1 HPI - General General Date of Admission: 11/06/24 Date of Service: 11/06/24 Chief Complaint: Watery Diarrhea and LGIB. HPI Narrative JARED RAYMOND, is a 79 M with a past medical history essential hypertension; on amlodipine, metoprolol and as needed clonidine daily, overweight; with BMI of 25.7 this admission, history of tobacco abuse, CAD; s/p CABG x 5, history of TIA/CVA, PVD; with claudication of both LE's, neuropathy, medical noncompliance,chronic constipation, history of appendectomy, remote history of colonoscopy ~10years ago; with polyp noted at that time, OA, history of admission here from April 14, 2024 to April 15, 2024 for treatment of ABLA with BRBPR requiring transfusion with hemoglobin of 6.7 g/dL present on admission with CT of the abdomen positive for masslike wall thickening of the ascending colon up to ~4.5 cm suspicious for malignancy with possible metastatic lesion noted in the liver with patient subsequently undergoing colonoscopy by Dr. Silvestre of gastroenterology that noted diverticulosis in the sigmoid colon with malignant partially obstructing tumor at the hepatic flexure that was biopsied and tattooed with patient set up to follow-up with general surgery as an outpatient;s/p Right hemicolectomy April 28, 2024 with patient recommended for adjuvantchemotherapy after he was noted to have metastases to his lymph nodes with subsequent PET/CT revealing metastases to his GE junction complicated by elevated troponin up to 123 pg/mL suspected to be due to demand ischemia from acute anemia with echocardiogram revealing LVEF ~70% followed by another more recent admission here from June 08, 2024 to June 10, 2024 for treatment of syncopal episodes who now returns to [facility] ER complaining of watery diarrhea and LGIB. Mr. Raymond reports his symptoms began approximately 6 days prior to admission with the abrupt-onset of watery diarrhea several times per day with intermittentmoderate, generalized, cramping abdominal pain. Then earlier in the evening of November 05, 2024 he had a large bright red bowel movement so he decided to come in for further evaluation and treatment. There was no report of associated fever, chills, nausea, vomiting, constipation, chest pain, shortness of breath, headache or recent antibiotic use. In the ER he was diagnosed with Watery Diarrhea; presumed to be of infectious origin followed by recurrent LGIB with BRBPR with a hemoglobin of 11.5 g/dL present on admission complicated by clinical evidence of Uncontrolled Hypertension of 195/90 mmHg noted shortly after admission and he was then admitted to the PCU for a stay that is expected to extend beyond 2 midnights. [facility] Medical History (Updated 11/06/24 @ 06:[address] Darrel Carpenter, DO) Encounter for education Pre-op testing Wears dentures Arthritis Anemia Gastric reflux Former smoker History of edema History of echocardiogram History of stress test Cardiology follow-up encounter Aortic stenosis Preop cardiovascular exam Colon cancer Overweight (BMI 25.0-29.9) Colonic mass Coronary artery disease 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 Chronic hypertension Acute alteration in mental status Neuropathy Vasectomy planned Hyponatremia TIA (transient ischemic attack) CVA (cerebral vascular accident) Hypertension History of stroke Tobacco use Benign essential hypertension Home Medications ?Medication ?Instructions ?Recorded ?Last Taken ?Type amlodipine 5 mg tablet 5 mg PO DAILY HEART 05/16/24 11/05/24 History clonidine HCl 0.1 mg tablet 0.1 mg PO DAILY PRN hbp 10/06/24 History ferrous sulfate 325 mg (65 mg 325 mg PO DAILY 30 days #60 tabs 06/10/24 11/05/24 Rx iron) tablet (Iron (ferrous sulfate)) metoprolol tartrate 50 mg tablet 25 mg PO QDAY Blood p ressure/heart 10/17/24 11/05/24 History rat oxycodone 5 mg tablet 5 mg PO Q6H PRN pain 7 days #28 10/24/24 Unknown Rx tabs Allergy/AdvReac Type Severity Reaction Status Date / Time fentanyl AdvReac Low blood Verified 11/06/24 03:59 pressure Family History Father Arthritis Alcohol abuse Mother Alcohol abuse Liver disease Surgical History History of hemicolectomy (04/25/24) H/O vasectomy S/P right hemicolectomy History of tonsillectomy History of appendectomy 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) Social History Smoking Status: Former smoker alcohol intake: never substance use type: does not use ROS ROS Narrative Review of Systems: Constitutional: Patient denies fever or chills. Eyes: Patient denies changes in vision or discharge from eyes. ENT: Patient denies runny nose, sore throat or ear pain. Resp: Patient denies shortness of breath or cough. CV: Patient denies chest pain, potation's, heart racing, syncope or lower extremity edema. GI: Patient admits to watery diarrhea for 6 days followed by LGIB with BRBPR as per HPI. He admits to intermittent lower abdominal pain. He denies nausea, vomiting or constipation. : Patient denies dysuria or hematuria. MSK: Patient denies arthralgias or myalgias. Skin: Patient denies rash, abscess, wounds or jaundice. Psych: Patient denies symptoms of uncontrolled depression or anxiety. Neuro: Patient denies headache, paresthesias or focal neurologic deficits. Allergy: Patient denies lip swelling, tongue swelling or urticaria. Hematology: Patient admits to IB with BRBPR as per HPI. Endocrinology: Patient denies polyuria, polydipsia, polyphagia or heat/cold intolerance. 14 point ROS otherwise negative except for positives noted above in HPI. Vital Signs Vital Signs Vital Signs: 11/05/24 22:21 11/05/24 23:21 11/05/24 23:49 Temperature 97.7 F L Temperature Source Oral Pulse Rate 84 81 75 Respiratory Rate 18 18 18 Blood Pressure 158/79 H 173/75 H Blood Pressure Mean 105 107 Pulse Ox 100 99 100 Oxygen Delivery Method Room Air Room Air Room Air 11/06/24 00:00 11/06/24 00:36 11/06/24 01:00 Temperature 98.3 F Temperature Source Pulse Rate 75 77 Respiratory Rate 18 18 Blood Pressure 173/95 H 169/76 H 169/71 H Blood Pressure Mean 121 107 103 Pulse Ox 98 99 Oxygen Delivery Method Room Air Weight Weight: 163 lb 14.4 oz Body Mass Index (BMI) 25.7 Physical Exam Const alert, oriented x3, no apparent distress and average body habitus Constitutional Narrative: Patient has chronically ill appearance. General Appearance: cooperative HEENT normocephalic, head/scalp atraumatic, hearing grossly normal bilaterally and moist oral mucous membranes Eyes PERRL and EOMs intact bilaterally Neck no lymphadenopathy and supple Resp normal respiratory effort, no retractions, no use of accessory muscles and clearto auscultation bilaterally Cardio regular rate and regular rhythm GI normal to inspection, nondistended, normoactive bowel sounds, soft to palpation,non-tender and non-distended Extremity normal to inspection, full ROM and no clubbing, cyanosis or edema Skin Skin Narrative: Patient has evidence of rash, abscess, wounds or jaundice. Neuro oriented x3, CN's II-XII intact bilaterally, moves all extremities and no focal motor deficits Sensorium / Orientation: awake, alert, oriented to person, oriented to place andoriented to time Speech: speech normal Psych affect normal Results Medical Records Data Attestation: I reviewed the patient's medical records Lab / Micro Data Attestation: I reviewed the patient's lab results. 11/06/24 04:23 11/06/24 04:23 Labs: Laboratory Results - last 24 hr 11/05/24 22:42: WBC Cancelled, Corrected WBC Cancelled, RBC Cancelled, Hgb Cancelled, Hct Cancelled, MCV Cancelled, MCH Cancelled, MCHC Cancelled, RDW Std Deviation Cancelled, RDW Coeff of Deepika Cancelled, Plt Count Cancelled, MPV Cancelled, Immature Gran % (Auto) Cancelled, Neut % (Auto) Cancelled, Lymph % (Auto) Cancelled, Josephine % (Auto) Cancelled, Eos % (Auto) Cancelled, Baso % (Auto)Cancelled, Absolute Neuts (auto) Cancelled, Absolute Lymphs (auto) Cancelled, Total Counted Cancelled, Neutrophils % (Manual) Cancelled, Band Neutrophils % Cancelled, Lymphocytes % (Manual) Cancelled, Monocytes % (Manual) Cancelled, Eosinophils % (Manual) Cancelled, Basophils % (Manual) Cancelled, Metamyelocytes% Cancelled, Myelocytes % Cancelled, Promyelocytes % Cancelled, Blast Cells % Cancelled, Plasma Cell % (Manual) Cancelled, Other Cells % Cancelled, Nucleated RBC % Cancelled, Nucleated RBCs/100 WBC Cancelled, Differential Comment Cancelled, Diff Path Review Cancelled, Hypersegmented Neuts Cancelled, Atypical Lymphocytes Cancelled, Reactive Lymphocytes Cancelled, Smudge Cells Cancelled, Toxic Granulation Cancelled, Toxic Vacuolation Cancelled, Dohle Bodies Cancelled, Deepa Rods Cancelled, Platelet Estimate Cancelled, Plt Morphology Comment Cancelled, RBC Morphology Cancelled 11/05/24 22:42: RBC Morphology Cancelled, Polychromasia Cancelled, HypochromasiaCancelled, Basophilic Stippling Cancelled, Anisocytosis Cancelled, Microcytosis Cancelled, Macrocytosis Cancelled, Spherocytes Cancelled, Sickle Cells Cancelled, Target Cells Cancelled, Tear Drop Cells Cancelled, Ovalocytes Cancelled, Stomatocytes Cancelled, [place] Bodies Cancelled, [place] Cells Cancelled, Bite Cells Cancelled, Crenated Cell Cancelled, Acanthocytes (Spur) Cancelled, Rouleaux Cancelled, Schistocytes Cancelled, PT 12.2, INR 0.9, APTT 22.1 L, Sodium 126 L, Potassium 4.0, Chloride 90 L, Carbon Dioxide 23.8, Anion Gap 12, BUN 14, Creatinine 0.92, Estim Creat Clear Calc 59.87, Est GFR (MDRD) Non-Af 84, BUN/Creatinine Ratio 15.4, Glucose 110 H, Lactic Acid < 1.0, Calcium 9.0, Blood Type O POSITIVE, Antibody Screen NEGATIVE 11/05/24 23:15: WBC 9.0, RBC 3.77 L, Hgb 11.5 L, Hct 32.9 L, MCV 87.3, MCH 30.5,MCHC 35.0, RDW Std Deviation 39.0, RDW Coeff of Deepika 12.2, Plt Count 274, MPV 8.7, Immature Gran % (Auto) 0.600, Neut % (Auto) 76.8 H, Lymph % (Auto) 12.9 L, Josephine % (Auto) 8.9, Eos % (Auto) 0.6, Baso % (Auto) 0.2, Absolute Neuts (auto) 6.9, Absolute Lymphs (auto) 1.16, Nucleated RBC % 0 Micro: Microbiology 11/05/24 23:44 Stool Stool Occult Blood ([facility]) - Final Occult Blood Positive Imaging Radiology Impression Abdomen/Pelvis CTA 11/05/24 22:46 IMPRESSION: 1. Extensive calcified and noncalcified plaque throughout the abdominal aorta and iliac arteries without evidence of acute dissection or aneurysm. 2. 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 And other findings as described above. 3. Multiple uncinate bilobar low-attenuation hepatic lesions, concerning for metastasis. 4. Stable large central mesenteric mass with obscuration of the SMV as describedabove. 5. Extensive retroperitoneal adenopathy, unchanged. 6. Other stable findings as described above. Reading Location: [facility] Assessment & Plan Assessment/Plan (1) GI (gastrointestinal bleed): QUALIFIERS: GI bleed type/associated pathology: unspecified gastrointestinal hemorrhage type Qualified Code(s): K92.2 - Gastrointestinal hemorrhage, unspecified (2) Anemia: QUALIFIERS: Anemia type: unspecified type Qualified Code(s): D64.9 - Anemia, unspecified (3) Abdominal pain: QUALIFIERS: Abdominal location: generalized Qualified Code(s): R10.84 - Generalized abdominal pain (4) 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: (5) Mediastinal lymphadenopathy: (6) Uncontrolled hypertension: (7) Medical non-compliance: (8) Hyponatremia: PLAN: Plan 1. LGIB with BRBPR; recurrent - Admit to PCU. Keep NPO for endoscopy in AM. Start IV pantoprazole 40 mg IV BID. Type & Screen blood and transfuse for hemoglobin <7 g/dL with hemoglobin of 11.5 g/dL present on admission. Check iron studies, B12 and Folate levels to evaluate anemia. Finally, we will consult gastroenterology to see this patient on rounds in the AM for further recommendations with help appreciated in advance. 2. Uncontrolled Hypertension of 195/90 mmHg noted shortly after admission complicating #1 - Give hydralazine IV prn for systolic blood pressure >160 mmHg. Unfortunately, patient refused initial dose of hydralazine send we are seeking alternative agent he will accept in the setting of medical noncompliance. 3. Hyponatremia of 126 mmol/L present on admission compounding #1 & #2 - Give NS IVF and recheck CMP in AM to follow trend. Check serum and urine osmolality. 4. History of admission here from April 14, 2024 to April 15, 2024 for treatment of ABLA with BRBPR requiring transfusion with hemoglobin of 6.7 g/dL present on admission with CT of the abdomen positive for masslike wall thickening of the ascending colon up to ~4.5 cm suspicious for malignancy with possible metastatic lesion noted in the liver with patient subsequently undergoing colonoscopy by Dr. Silvestre of gastroenterology that noted diverticulosis in the sigmoid colon with malignant partially obstructing tumor at the hepatic flexure that was biopsied and tattooed with patient set up to follow-up with general surgery as an outpatient; s/p Right hemicolectomy April 28, 2024 with patient recommended for adjuvant chemotherapy after he was noted to have metastases to his lymph nodes with subsequent PET/CT revealingmetastases to his GE junction adding to the medical complexity of #1 - #3 - Noted. 5. History of elevated troponin up to 123 pg/mL suspected to be due to demand ischemia from acute anemia with echocardiogram revealing LVEF ~70% followed by another more recent admission here from June 08, 2024 to June 10, 2024 for treatment of syncopal episodes - Noted. 6. Essential hypertension; on amlodipine, metoprolol and as needed clonidine daily - Hold scheduled antihypertensives in light of #1. Give hydralazine IV prn for systolic blood pressure > 160 mmHg. 7. Overweight; with BMI of 25.7 this admission - Weight loss will be recommended. Check TSH. 8. History of tobacco abuse - Noted. 9. CAD; s/p CABG x 5 - Stable. Serialize troponin. 10. History of TIA/CVA - Noted. 11. PVD; with claudication of both LE's - Stable. 12. Neuropathy - Stable. 13. History of medical noncompliance - Noted. 14. Chronic constipation - Stable. 15. History of appendectomy - Noted. 16. Remote history of colonoscopy ~10 years ago; with polyp noted at that time - Noted. 17. OA - Noted. 18. DVT prophylaxis - SCD's only in light of #1. Total time: Approximately (but not less than) 75 minutes. Charges/Coding Visit Charges Inpatient E&M: 52129 Init Hosp L3 11/06/24 0656 <Electronically signed by Darrel Carpenter DO> Cosigner Signature (if applicable): CC: MARYAM Olson; Dr. Darrel Carpenter DO~ Signed [facility] Work Phone: [phone] Discharge summary Author Harrison Linares [facility] Note Date/Time November 06, 2024 5:46 am [facility] Medical Records Department [address] [place] [address] Emergency Department Summary 11/06/24 MR#: [id number] Acct: [id number] Name: JARED RAYMOND Rep #:[id number] : 1945 79 From: Harrison Linares DO PCP: MARYAM Guerra Status:ADM IN Location: [address] History of Present Illness Chief Complaint: GI Bleed Informant: patient and family Narrative Narrative: Patient is an 79-year-old male with past medical history of hypertension and colon cancer. He states that today he went to the bathroom and he had a large amount of bright red blood. He states that this has happened 2 or 3 times since8 PM. He reports that with his previous bout of blood per rectum he needed emergent surgery and multiple units of blood. Patient denies any history of bleeding disorder or blood thinner use. He denies any known sick contact. He states there is been no chest pain shortness of breath or dizziness or syncope. However with the recurrent episodes of blood per rectum he presents for evaluation. [facility] Medical History (Updated 11/06/24 @ 05:[address] 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 Chronic hypertension Acute alteration in mental status Neuropathy Vasectomy planned Hyponatremia TIA (transient ischemic attack) CVA (cerebral vascular accident) Hypertension History of stroke Tobacco use Benign essential hypertension Home Medications ?Medication ?Instructions ?Recorded ?Last Taken ?Type amlodipine 5 mg tablet 5 mg PO DAILY HEART 05/16/24 11/05/24 History clonidine HCl 0.1 mg tablet 0.1 mg PO DAILY PRN hbp 10/06/24 History ferrous sulfate 325 mg (65 mg 325 mg PO DAILY 30 days #60 tabs 06/10/24 11/05/24 Rx iron) tablet (Iron (ferrous sulfate)) metoprolol tartrate 50 mg tablet 25 mg PO QDAY Blood p ressure/heart 10/17/24 11/05/24 History rat oxycodone 5 mg tablet 5 mg PO Q6H PRN pain 7 days #28 10/24/24 Unknown Rx tabs Allergy/AdvReac Type Severity Reaction Status Date / Time fentanyl AdvReac Low blood Verified 11/06/24 03:59 pressure Family History Father Arthritis Alcohol abuse Mother Alcohol abuse Liver disease Surgical History History of hemicolectomy (04/25/24) H/O vasectomy S/P right hemicolectomy History of tonsillectomy History of appendectomy 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) Social History Smoking Status: Former smoker alcohol intake: never substance use type: does not use ROS ROS ED Constitutional Constitutional ED: Denies chills or fever(s) Eyes Eyes: Denies blurry vision or change in vision ENT ENT ED: Denies sore throat Cardiovascular Cardiovascular: Reports other Details: Negative syncope ; Denies chest pain, palpitations or racing heartbeat Respiratory/Chest Respiratory/Chest: Denies cough or dyspnea Gastrointestinal Gastrointestinal: Reports diarrhea and other Details: Positive bright red blood per rectum ; Denies abdominal pain, nausea or vomiting Genitourinary Genitourinary ED: Denies dysuria or hematuria Musculoskeletal Musculoskeletal: Denies back pain or myalgias Integumentary Denies rash Neurologic Neurologic: Denies headache(s) or weakness Hematologic/Lymphatic Hematologic/Lymphatic: Denies easy bleeding or easy bruising EXAM Physical Exam Const Vital Signs: 11/05/24 22:21 11/05/24 23:21 11/05/24 23:49 Temperature 97.7 F L Temperature Source Oral Pulse Rate 84 81 75 Respiratory Rate 18 18 18 Blood Pressure 158/79 H 173/75 H Blood Pressure Mean 105 107 Pulse Ox 100 99 100 Oxygen Delivery Method Room Air Room Air Room Air 11/06/24 00:00 11/06/24 00:36 11/06/24 01:00 Temperature 98.3 F Temperature Source Pulse Rate 75 77 Respiratory Rate 18 18 Blood Pressure 173/95 H 169/76 H 169/71 H Blood Pressure Mean 121 107 103 Pulse Ox 98 99 Oxygen Delivery Method Room Air Positive well nourished and well developed General Appearance ED: well developed; Negative for pallor HEENT HEENT Narrative: Normocephalic atraumatic Eyes PERRL and EOMs intact bilaterally General Eye ED: Negative for pale conjunctiva or scleral icterus Neck supple Neck Narrative: No nuchal rigidity or meningeal signs Resp normal respiratory effort and clear to auscultation bilaterally Cardio regular rate and regular rhythm Rate: other Other Details: Heart is regular rate and rhythm with a grade 5 out of 6 holosystolic murmur Radial and carotid pulses are equal and symmetric GI normal to inspection, nondistended, normoactive bowel sounds, non-tender, non-distended and no masses GI Narrative: No voluntary guarding or rigidity or pulsatile mass No peritoneal signs Auscultation: normoactive bowel sounds Palpation: soft Narrative: No anal fissure noted There is a nonthrombosed nonbleeding external hemorrhoid present Rectal tone is normal. No internal masses palpated Stool is mucousy and bright red in color and Hemoccult positive Back/Spine no CVA tenderness Extremity normal to inspection Neuro oriented x3, CN's II-XII intact bilaterally and no sensory deficits noted Sensorium / Orientation: alert Motor Exam: strength 5/5 throughout Psych mental status grossly normal Skin no rashes or lesions noted General Skin Exam: Negative for jaundice or pallor MDM MDM MDM Narrative Medical decision making narrative: Patient presented to the ER hypertensive but has a past medical history of this and otherwise vitals are stable. He was seen in the ER roughly 1 week ago for abdominal pain and had a CT scan at that time. This showed the return of the potential cancerous lesion and also large amount of colonic diverticulosis. Thepatient denies any pain associated with the bleeding indicating this is most likely diverticular in nature. In order to ensure he does not have acute blood loss anemia and required blood transfusion basic labs were obtained. In order to rule out a potential perforation or active diverticular bleeding site a CT ofthe abdomen and pelvis was ordered as well. Patient's hemoglobin is stable at 11.5 but chart review reveals that it was 13.1 just 1 week ago. The patient's BUN is normal going against an upper GI bleed and this correlates with the fact he has bright red blood per rectum. At this time the patient is hemodynamicallystable his abdomen is soft and nonsurgical and his CT scan reveals the metastatic changes without obvious signs of infection or perforation or active bleeding area. However because his hemoglobin has dropped roughly 2 points in 7days this is concerning especially as he is continued to have bloody bowel movements while in the ER. As there is concern he may progress to instability based on the recurrent bleeding and potentially require blood transfusion I did discuss the case with his linen grader Dr. Silvestre. He recommends that with his recurrent symptoms and already a hemoglobin drop of roughly 2 points that admission is the safest option with potential for inpatient colonoscopy. Secondary to this the case was discussed with the hospitalist who agrees to accept the patient for continued monitoring and care History & Record Review Discussion w/independent historian: Patient and Family Lab Data Attestation: I reviewed the patient's lab results. Labs: Laboratory Results - last 24 hr 11/05/24 11/05/24 11/05/24 22:42 22:42 23:15 WBC Cancelled 9.0 Corrected WBC Cancelled RBC Cancelled 3.77 L Hgb Cancelled 11.5 L Hct Cancelled 32.9 L MCV Cancelled 87.3 MCH Cancelled 30.5 MCHC Cancelled 35.0 RDW Std Deviation Cancelled 39.0 RDW Coeff of Deepika Cancelled 12.2 Plt Count Cancelled 274 MPV Cancelled 8.7 Immature Gran % (Auto) Cancelled 0.600 Neut % (Auto) Cancelled 76.8 H Lymph % (Auto) Cancelled 12.9 L Josephine % (Auto) Cancelled 8.9 Eos % (Auto) Cancelled 0.6 Baso % (Auto) Cancelled 0.2 Absolute Neuts (auto) Cancelled 6.9 Absolute Lymphs (auto) Cancelled 1.16 Total Counted Cancelled Neutrophils % (Manual) Cancelled Band Neutrophils % Cancelled Lymphocytes % (Manual) Cancelled Monocytes % (Manual) Cancelled Eosinophils % (Manual) Cancelled Basophils % (Manual) Cancelled Metamyelocytes % Cancelled Myelocytes % Cancelled Promyelocytes % Cancelled Blast Cells % Cancelled Plasma Cell % (Manual) Cancelled Other Cells % Cancelled Nucleated RBC % Cancelled 0 Nucleated RBCs/100 WBC Cancelled Differential Comment Cancelled Diff Path Review Cancelled Hypersegmented Neuts Cancelled Atypical Lymphocytes Cancelled Reactive Lymphocytes Cancelled Smudge Cells Cancelled Toxic Granulation Cancelled Toxic Vacuolation Cancelled Dohle Bodies Cancelled Deepa Rods Cancelled Platelet Estimate Cancelled Plt Morphology Comment Cancelled RBC Morphology Cancelled Cancelled Polychromasia Cancelled Hypochromasia Cancelled Basophilic Stippling Cancelled Anisocytosis Cancelled Microcytosis Cancelled Macrocytosis Cancelled Spherocytes Cancelled Sickle Cells Cancelled Target Cells Cancelled Tear Drop Cells Cancelled Ovalocytes Cancelled Stomatocytes Cancelled Scott-Copperton Bodies Cancelled Tani Cells Cancelled Bite Cells Cancelled Crenated Cell Cancelled Acanthocytes (Spur) Cancelled Rouleaux Cancelled Schistocytes Cancelled PT 12.2 INR 0.9 APTT 22.1 L Sodium 126 L Potassium 4.0 Chloride 90 L Carbon Dioxide 23.8 Anion Gap 12 BUN 14 Creatinine 0.92 Estim Creat Clear Calc 59.87 Est GFR (MDRD) Non-Af 84 BUN/Creatinine Ratio 15.4 Glucose 110 H Lactic Acid < 1.0 Calcium 9.0 Magnesium 2.3 H Blood Type O POSITIVE Antibody Screen NEGATIVE Radiography Diagnostic Testing: Clinical Impression(s) from Imaging Studies Abdomen/Pelvis CTA 11/05/24 22:46 IMPRESSION: 1. Extensive calcified and noncalcified plaque throughout the abdominal aorta and iliac arteries without evidence of acute dissection or aneurysm. 2. 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 And other findings as described above. 3. Multiple uncinate bilobar low-attenuation hepatic lesions, concerning for metastasis. 4. Stable large central mesenteric mass with obscuration of the SMV as describedabove. 5. Extensive retroperitoneal adenopathy, unchanged. 6. Other stable findings as described above. Reading [facility] Management Discussion w/another healthcare provider: Hospitalist and Senior Talent Management Consultant Discharge Plan Dx/Rx/DC Orders Clinical Impression: GI (gastrointestinal bleed), Benign essential hypertension, Colon cancer, Hyponatremia, Diverticulosis Disposition Disposition: Acute Care Hospital [facility] Discharge Date/Time: 11/06/24 03:21 What to do if you have Problems For any increased pain, shortness of breath, bleeding, nausea or vomiting, chestpain, or any unexpected problems, contact your Primary Care Provider. Call [facility] ([phone]) or report to the closest Emergency Room. Call 911 if necessary. 11/06/24 0546 <Electronically signed by Harrison Linares DO> Cosigner Signature (if applicable): CC: CITY ASSESSOR-C Mariela Olson ~ Signed [facility] Work Phone: [phone] History and physical note [facility] Medical Records Department [address] [place] [address] H&P Exam - Hospitalist 11/06/24 0145 MR#: [id number] Acct: [id number] Name: JARED RAYMOND Rep #:[id number] : 1945 79 From: Darrel Qureshi DO PCP: MARYAM Guerra Status:ADM IN Location: [place] [id number] HPI - General General Date of Admission: 11/06/24 Date of Service: 11/06/24 Chief Complaint: Watery Diarrhea and LGIB. HPI Narrative JARED RAYMOND, is a 79 M with a past medical history essential hypertension; on amlodipine, metoprolol and as needed clonidine daily, overweight; with BMI of 25.7 this admission, history of tobacco abuse, CAD; s/p CABG x 5, history of TIA/CVA, PVD; with claudication of both LE's, neuropathy, medical noncompliance,chronic constipation, history of appendectomy, remote history of colonoscopy ~10years ago; with polyp noted at that time, OA, history of admission here from April 14, 2024 to April 15, 2024 for treatment of ABLA with BRBPR requiring transfusion with hemoglobin of 6.7 g/dL present on admission with CT of the abdomen positive for masslike wall thickening of the ascending colon up to ~4.5 cm suspicious for malignancy with possible metastatic lesion noted in the liver with patient subsequently undergoing colonoscopy by Dr. Silvestre of gastroenterology that noted diverticulosis in the sigmoid colon with malignant partially obstructing tumor at the hepatic flexure that was bio psied and tattooed with patient set up to follow-up with general surgery as an outpatient;s/p Righthemicolectomy April 28, 2024 with patient recommended for adjuvantchemotherapy after he was noted to have metastases to his lymph nodes with subsequent PET/CT revealing metastases to his GE junction complicated by elevated troponin up to 123 pg/mL suspected to be due to demand ischemia from acute anemia with echocardiogram revealing LVEF ~70% followed by another more recent admission here from June 08, 2024 to June 10, 2024 for treatment of syncopal episodes who now returns to [facility] ER complaining of watery diarrhea and LGIB. Mr. Raymond reports his symptoms began approximately 6 days prior to admission with the abrupt-onsetof watery diarrhea several times per day with intermittentmoderate, generalized, cramping abdominalpain. Then earlier in the evening of November 05, 2024 he had a large bright red bowel movement so he decided to come in for further evaluation and treatment. There was no report of associated fever, chills, nausea, vomiting, constipation, chest pain, shortness of breath, headache or recent antibiotic use. In the ER he was diagnosed with Watery Diarrhea; presumed to be of infectious origin followed by recurrent LGIB with BRBPR with a hemoglobin of 11.5 g/dL present on admission complicated by clinical evidence of Uncontrolled Hypertension of 195/90 mmHg noted shortly after admission and he was then admitted to the PCU for a stay that is expected to extend beyond 2 midnights. [facility] Medical History (Updated 11/06/24 @ 06:[address] Darrel Carpenter DO) Encounter for education Pre-op testing Wears dentures Arthritis Anemia Gastric reflux Former smoker History of edema History of echocardiogram History of stress test Cardiology follow-up encounter Aortic stenosis Preop cardiovascular exam Colon cancer Overweight (BMI 25.0-29.9) Colonic mass Coronary artery disease 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 Chronic hypertension Acute alteration in mental status Neuropathy Vasectomy planned Hyponatremia TIA (transient ischemic attack) CVA (cerebral vascular accident) Hypertension History of stroke Tobacco use Benign essential hypertension Home Medications ?Medication ?Instructions ?Recorded ?Last Taken ?Type amlodipine 5 mg tablet 5 mg PO DAILY HEART 05/16/24 11/05/24 History clonidine HCl 0.1 mg tablet 0.1 mg PO DAILY PRN hbp 10/06/24 History ferrous sulfate 325 mg (65 mg 325 mg PO DAILY 30 days #60 tabs 06/10/24 11/05/24 Rx iron) tablet (Iron (ferrous sulfate)) metoprolol tartrate 50 mg tablet 25 mg PO QDAY Blood p ressure/heart 10/17/24 11/05/24 History rat oxycodone 5 mg tablet 5 mg PO Q6H PRN pain 7 days #28 10/24/24 Unknown Rx tabs Allergy/AdvReac Type Severity Reaction Status Date / Time fentanyl AdvReac Low blood Verified 11/06/24 03:59 pressure Family History Father Arthritis Alcohol abuse Mother Alcohol abuse Liver disease Surgical History History of hemicolectomy (04/25/24) H/O vasectomy S/P right hemicolectomy History of tonsillectomy History of appendectomy 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) Social History Smoking Status: Former smoker alcohol intake: never substance use type: does not use ROS ROS Narrative Review of Systems: Constitutional: Patient denies fever or chills. Eyes: Patient denies changes in vision or discharge from eyes. ENT: Patient denies runny nose, sore throat or ear pain. Resp: Patient denies shortness of breath or cough. CV: Patient denies chest pain, potation's, heart racing, syncope or lower extremity edema. GI: Patient admits to watery diarrhea for 6 days followed by LGIB with BRBPR as per HPI. He admits to intermittent lower abdominal pain. He denies nausea, vomiting or constipation. : Patient denies dysuria or hematuria. MSK: Patient denies arthralgias or myalgias. Skin: Patient denies rash, abscess, wounds or jaundice. Psych: Patient denies symptoms of uncontrolled depression or anxiety. Neuro: Patient denies headache, paresthesias or focal neurologic deficits. Allergy: Patient denies lip swelling, tongue swelling or urticaria. Hematology: Patient admits to LGIB with BRBPR as per HPI. Endocrinology: Patient denies polyuria, polydipsia, polyphagia or heat/cold intolerance. 14 point ROS otherwise negative except for positives noted above in HPI. Vital Signs Vital Signs Vital Signs: 11/05/24 22:21 11/05/24 23:21 11/05/24 23:49 Temperature 97.7 F L Temperature Source Oral Pulse Rate 84 81 75 Respiratory Rate 18 18 18 Blood Pressure 158/79 H 173/75 H Blood Pressure Mean 105 107 Pulse Ox 100 99 100 Oxygen Delivery Method Room Air Room Air Room Air 11/06/24 00:00 11/06/24 00:36 11/06/24 01:00 Temperature 98.3 F Temperature Source Pulse Rate 75 77 Respiratory Rate 18 18 Blood Pressure 173/95 H 169/76 H 169/71 H Blood Pressure Mean 121 107 103 Pulse Ox 98 99 Oxygen Delivery Method Room Air Weight Weight: 163 lb 14.4 oz Body Mass Index (BMI) 25.7 Physical Exam Const alert, oriented x3, no apparent distress and average body habitus Constitutional Narrative: Patient has chronically ill appearance. General Appearance: cooperative HEENT normocephalic, head/scalp atraumatic, hearing grossly normal bilaterally and moist oral mucous membranes Eyes PERRL and EOMs intact bilaterally Neck no lymphadenopathy and supple Resp normal respiratory effort, no retractions, no use of accessory muscles and clearto auscultation bilaterally Cardio regular rate and regular rhythm GI normal to inspection, nondistended, normoactive bowel sounds, soft to palpation,non-tender and non-distended Extremity normal to inspection, full ROM and no clubbing, cyanosis or edema Skin Skin Narrative: Patient has evidence of rash, abscess, wounds or jaundice. Neuro oriented x3, CN's II-XII intact bilaterally, moves all extremities and no focal motor deficits Sensorium / Orientation: awake, alert, oriented to person, oriented to place andoriented to time Speech: speech normal Psych affect normal Results Medical Records Data Attestation: I reviewed the patient's medical records Lab / Micro Data Attestation: I reviewed the patient's lab results. 11/06/24 04:23 11/06/24 04:23 Labs: Laboratory Results - last 24 hr 11/05/24 22:42: WBC Cancelled, Corrected WBC Cancelled, RBC Cancelled, Hgb Cancelled, Hct Cancelled, MCV Cancelled, MCH Cancelled, MCHC Cancelled, RDW Std Deviation Cancelled, RDW Coeff of Deepika Cancelled, Plt Count Cancelled, MPV Cancelled, Immature Gran % (Auto) Cancelled, Neut % (Auto) Cancelled, Lymph % (Auto) Cancelled, Josephine % (Auto) Cancelled, Eos % (Auto) Cancelled, Baso % (Auto)Cancelled, Absolute Neuts (auto) Cancelled, Absolute Lymphs (auto) Cancelled, Total Counted Cancelled, Neutrophils % (Manual) Cancelled, Band Neutrophils % Cancelled, Lymphocytes % (Manual) Cancelled, Monocytes %(Manual) Cancelled, Eosinophils % (Manual) Cancelled, Basophils % (Manual) Cancelled, Metamyelocytes% Cancelled, Myelocytes % Cancelled, Promyelocytes % Cancelled, Blast Cells % Cancelled, Plasma Cell % (Manual) Cancelled, Other Cells % Cancelled, Nucleated RBC % Cancelled, Nucleated RBCs/100 WBC Cancelled, Differential Comment Cancelled, Diff Path Review Cancelled, Hypersegmented Neuts Cancelled, Atypical Lymphocytes Cancelled, Reactive Lymphocytes Cancelled, Smudge Cells Cancelled, Toxic Granulation Cancelled, Toxic Vacuolation Cancelled, Dohle Bodies Cancelled, Deepa Rods Cancelled, Platelet Estimate Cancelled, Plt Morphology Comment Cancelled, RBC Morphology Cancelled 11/05/24 22:42: RBC Morphology Cancelled, Polychromasia Cancelled, HypochromasiaCancelled, Basophilic Stippling Cancelled, Anisocytosis Cancelled, Microcytosis Cancelled, Macrocytosis Cancelled, Spherocytes Cancelled, Sickle Cells Cancelled, Target Cells Cancelled, Tear Drop Cells Cancelled, Ovalocytes Cancelled, Stomatocytes Cancelled, Scott-Copperton Bodies Cancelled, Tani Cells Cancelled, Bite Cells Cancelled, Crenated Cell Cancelled, Acanthocytes (Spur) Cancelled, Rouleaux Cancelled, Schistocytes Cancelled, PT 12.2, INR 0.9, APTT 22.1 L, Sodium 126 L, Potassium 4.0, Chloride 90 L, Carbon Dioxide 23.8, Anion Gap 12, BUN 14, Creatinine 0.92, Estim Creat Clear Calc 59.87, Est GFR (MDRD) Non-Af 84, BUN/Creatinine Ratio 15.4, Glucose 110 H, Lactic Acid < 1.0, Calcium 9.0, Blood Type O POSITIVE, Antibody Screen NEGATIVE 11/05/24 23:15: WBC 9.0, RBC 3.77 L, Hgb 11.5 L, Hct 32.9 L, MCV 87.3, MCH 30.5,MCHC 35.0, RDW Std Deviation 39.0, RDW Coeff of Deepika 12.2, Plt Count 274, MPV 8.7, Immature Gran % (Auto) 0.600, Neut % (Auto) 76.8 H, Lymph % (Auto) 12.9 L, Josephine % (Auto) 8.9, Eos % (Auto) 0.6, Baso % (Auto) 0.2, Absolute Neuts (auto) 6.9, Absolute Lymphs (auto) 1.16, Nucleated RBC % 0 Micro: Microbiology 11/05/24 23:44 Stool Stool Occult Blood ([facility]) - Final Occult Blood Positive Imaging Radiology Impression Abdomen/Pelvis CTA 11/05/24 22:46 IMPRESSION: 1. Extensive calcified and noncalcified plaque throughout the abdominal aorta and iliac arteries without evidence of acute dissection or aneurysm. 2. 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 And other findings as described above. 3. Multiple uncinate bilobar low-attenuation hepatic lesions, concerning for metastasis. 4. Stable large central mesenteric mass with obscuration of the SMV as describedabove. 5. Extensive retroperitoneal adenopathy, unchanged. 6. Other stable findings as described above. Reading Location: [facility] Assessment & Plan Assessment/Plan (1) GI (gastrointestinal bleed): QUALIFIERS: GI bleed type/associated pathology: unspecified gastrointestinal hemorrhage type Qualified Code(s): K92.2 - Gastrointestinal hemorrhage, unspecified (2) Anemia: QUALIFIERS: Anemia type: unspecified type Qualified Code(s): D64.9 - Anemia, unspecified (3) Abdominal pain: QUALIFIERS: Abdominal location: generalized Qualified Code(s): R10.84 - Generalized abdominal pain (4) 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: (5) Mediastinal lymphadenopathy: (6) Uncontrolled hypertension: (7) Medical non-compliance: (8) Hyponatremia: PLAN: Plan 1. LGIB with BRBPR; recurrent - Admit to PCU. Keep NPO for endoscopy in AM. Start IV pantoprazole 40 mg IV BID. Type & Screen blood and transfuse for hemoglobin <7 g/dL with hemoglobin of 11.5g/dL present on admission. Check iron studies, B12 and Folate levels to evaluate anemia. Finally, we will consult gastroenterology to see this patient on rounds in the AM for further recommendations with help appreciated in advance. 2. Uncontrolled Hypertension of 195/90 mmHg noted shortly after admission complicating #1 - Give hydralazine IV prn for systolic blood pressure >160 mmHg. Unfortunately, patient refused initial dose of hydralazine send we are seeking alternative agent he will accept in the setting of medical noncompliance. 3. Hyponatremia of 126 mmol/L present on admission compounding #1 & #2 - Give NS IVF and recheck CMP in AM to follow trend. Check serum and urine osmolality. 4. History of admission here from April 14, 2024 to April 15, 2024 for treatment of ABLA with BRBPR requiring transfusion with hemoglobin of 6.7 g/dL present on admission with CT of the abdomen positive for masslike wall thickening of the ascending colon up to ~4.5 cm suspicious for malignancy with possible metastatic lesion noted in the liver with patient subsequently undergoing colonoscopy by Dr. Silvestre of gastroenterology that noted diverticulosis in the sigmoid colon with malignant partially obstructing tumor at the hepatic flexure that was biopsied and tattooed with patient set up to follow-up with general surgery as an outpatient; s/p Right hemicolectomy April 28, 2024 with patient recommended for adjuvant chemotherapy after he was noted to have metastases to his lymph nodes with subsequent PET/CT revealingmetastases to his GE junction adding to the medical complexity of #1 - #3 - Noted. 5. History of elevated troponin up to 123 pg/mL suspected to be due to demand ischemia from acute anemia with echocardiogram revealing LVEF ~70% followed by another more recent admission here from June 08, 2024 to June 10, 2024 for treatment of syncopal episodes - Noted. 6. Essential hypertension; on amlodipine, metoprolol and as needed clonidine daily - Hold scheduledantihypertensives in light of #1. Give hydralazine IV prn for systolic blood pressure > 160 mmHg. 7. Overweight; with BMI of 25.7 this admission - Weight loss will be recommended. Check TSH. 8. History of tobacco abuse - Noted. 9. CAD; s/p CABG x 5 - Stable. Serialize troponin. 10. History of TIA/CVA - Noted. 11. PVD; with claudication of both LE's - Stable. 12. Neuropathy - Stable. 13. History of medical noncompliance - Noted. 14. Chronic constipation - Stable. 15. History of appendectomy - Noted. 16. Remote history of colonoscopy ~10 years ago; with polyp noted at that time - Noted. 17. OA - Noted. 18. DVT prophylaxis - SCD's only in light of #1. Total time: Approximately (but not less than) 75 minutes. Charges/Coding Visit Charges Inpatient E&M: 33731 Init Hosp 11/06/24 0656 Cosigner Signature (if applicable): CC: MARYAM Olson; Dr. Darrel Carpenter, DO~ Signed [facility]04-08-2025 Discharge summary [facility] Medical Records Department [address] [place] [address] Emergency Department Summary 11/06/24 MR#: [id number] Acct: [id number] Name: JARED RAYMOND Rep #:[id number] : 1945 79 From: Harrison Linares DO PCP: MARYAM Guerra Status:ADM IN Location: [address] HPI History of Present Illness Chief Complaint: GI Bleed Informant: patient and family Narrative Narrative: Patient is an 79-year-old male with past medical history of hypertension and colon cancer. He states that today he went to the bathroom and he had a large amount of bright red blood. He states that this has happened 2 or 3 times since8 PM. He reports that with his previous bout of blood per rectum he needed emergent surgery and multiple units of blood. Patient denies any history of bleeding disorder or blood thinner use. He denies any known sick contact. He states there is been no chest pain shortness of breath or dizziness or syncope. However with the recurrent episodes of blood per rectum he presents for evaluation. [facility] Medical History (Updated 11/06/24 @ 05:[address] 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 Chronic hypertension Acute alteration in mental status Neuropathy Vasectomy planned Hyponatremia TIA (transient ischemic attack) CVA (cerebral vascular accident) Hypertension History of stroke Tobacco use Benign essential hypertension Home Medications ?Medication ?Instructions ?Recorded ?Last Taken ?Type amlodipine 5 mg tablet 5 mg PO DAILY HEART 05/16/24 11/05/24 History clonidine HCl 0.1 mg tablet 0.1 mg PO DAILY PRN hbp 10/06/24 History ferrous sulfate 325 mg (65 mg 325 mg PO DAILY 30 days #60 tabs 06/10/24 11/05/24 Rx iron) tablet (Iron (ferrous sulfate)) metoprolol tartrate 50 mg tablet 25 mg PO QDAY Blood p ressure/heart 10/17/24 11/05/24 History rat oxycodone 5 mg tablet 5 mg PO Q6H PRN pain 7 days #28 10/24/24 Unknown Rx tabs Allergy/AdvReac Type Severity Reaction Status Date / Time fentanyl AdvReac Low blood Verified 11/06/24 03:59 pressure Family History Father Arthritis Alcohol abuse Mother Alcohol abuse Liver disease Surgical History History of hemicolectomy (04/25/24) H/O vasectomy S/P right hemicolectomy History of tonsillectomy History of appendectomy 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) Social History Smoking Status: Former smoker alcohol intake: never substance use type: does not use ROS ROS ED Constitutional Constitutional ED: Denies chills or fever(s) Eyes Eyes: Denies blurry vision or change in vision ENT ENT ED: Denies sore throat Cardiovascular Cardiovascular: Reports other Details: Negative syncope ; Denies chest pain, palpitations or racing heartbeat Respiratory/Chest Respiratory/Chest: Denies cough or dyspnea Gastrointestinal Gastrointestinal: Reports diarrhea and other Details: Positive bright red blood per rectum ; Denies abdominal pain, nausea or vomiting Genitourinary Genitourinary ED: Denies dysuria or hematuria Musculoskeletal Musculoskeletal: Denies back pain or myalgias Integumentary Denies rash Neurologic Neurologic: Denies headache(s) or weakness Hematologic/Lymphatic Hematologic/Lymphatic: Denies easy bleeding or easy bruising EXAM Physical Exam Const Vital Signs: 11/05/24 22:21 11/05/24 23:21 11/05/24 23:49 Temperature 97.7 F L Temperature Source Oral Pulse Rate 84 81 75 Respiratory Rate 18 18 18 Blood Pressure 158/79 H 173/75 H Blood Pressure Mean 105 107 Pulse Ox 100 99 100 Oxygen Delivery Method Room Air Room Air Room Air 11/06/24 00:00 11/06/24 00:36 11/06/24 01:00 Temperature 98.3 F Temperature Source Pulse Rate 75 77 Respiratory Rate 18 18 Blood Pressure 173/95 H 169/76 H 169/71 H Blood Pressure Mean 121 107 103 Pulse Ox 98 99 Oxygen Delivery Method Room Air Positive well nourished and well developed General Appearance ED: well developed; Negative for pallor HEENT HEENT Narrative: Normocephalic atraumatic Eyes PERRL and EOMs intact bilaterally General Eye ED: Negative for pale conjunctiva or scleral icterus Neck supple Neck Narrative: No nuchal rigidity or meningeal signs Resp normal respiratory effort and clear to auscultation bilaterally Cardio regular rate and regular rhythm Rate: other Other Details: Heart is regular rate and rhythm with a grade 5 out of 6 holosystolic murmur Radial and carotid pulses are equal and symmetric GI normal to inspection, nondistended, normoactive bowel sounds, non-tender, non- distended and no masses GI Narrative: No voluntary guarding or rigidity or pulsatile mass No peritoneal signs Auscultation: normoactive bowel sounds Palpation: soft Narrative: No anal fissure noted There is a nonthrombosed nonbleeding external hemorrhoid present Rectal tone is normal. No internal masses palpated Stool is mucousy and bright red in color and Hemoccult positive Back/Spine no CVA tenderness Extremity normal to inspection Neuro oriented x3, CN's II-XII intact bilaterally and no sensory deficits noted Sensorium / Orientation: alert Motor Exam: strength 5/5 throughout Psych mental status grossly normal Skin no rashes or lesions noted General Skin Exam: Negative for jaundice or pallor MDM MDM MDM Narrative Medical decision making narrative: Patient presented to the ER hypertensive but has a past medical history of this and otherwise vitals are stable. He was seen in the ER roughly 1 week ago for abdominal pain and had a CT scan at that time. This showed the return of the potential cancerous lesion and also large amount of colonic diverticulosis. Thepatient denies any pain associated with the bleeding indicating this is most likely diverticular in nature. In order to ensure he does not have acute blood loss anemia and required blood transfusion basic labs were obtained. In order to rule out a potential perforation or active diverticular bleeding site a CT ofthe abdomen and pelvis was ordered as well. Patient's hemoglobin is stable at 11.5 but chart review reveals that it was 13.1 just 1 week ago. The patient's BUN is normal going against an upper GI bleed and this correlates with the fact he has bright red blood per rectum.At this time the patient is hemodynamicallystable his abdomen is soft and nonsurgical and his CT scan reveals the metastatic changes without obvious signs of infection or perforation or active bleeding area. However because his hemoglobin has dropped roughly 2 points in 7days this is concerning especially as he is continued to have bloody bowel movements while in the ER. As there is concern he may progress to instability based on the recurrent bleeding and potentially require blood transfusion I did discuss the case with his linen grader Dr. Silvestre. He recommends that with his recurrentsymptoms and already a hemoglobin drop of roughly 2 points that admission is the safest option withpotential for inpatient colonoscopy. Secondary to this the case was discussed with the hospitalist who agrees to accept the patient for continued monitoring and care History & Record Review Discussion w/independent historian: Patient and Family Lab Data Attestation: I reviewed the patient's lab results. Labs: Laboratory Results - last 24 hr 11/05/24 11/05/24 11/05/24 22:42 22:42 23:15 WBC Cancelled 9.0 Corrected WBC Cancelled RBC Cancelled 3.77 L Hgb Cancelled 11.5 L Hct Cancelled 32.9 L MCV Cancelled 87.3 MCH Cancelled 30.5 MCHC Cancelled 35.0 RDW Std Deviation Cancelled 39.0 RDW Coeff of Deepika Cancelled 12.2 Plt Count Cancelled 274 MPV Cancelled 8.7 Immature Gran % (Auto) Cancelled 0.600 Neut % (Auto) Cancelled 76.8 H Lymph % (Auto) Cancelled 12.9 L Josephine % (Auto) Cancelled 8.9 Eos % (Auto) Cancelled 0.6 Baso % (Auto) Cancelled 0.2 Absolute Neuts (auto) Cancelled 6.9 Absolute Lymphs (auto) Cancelled 1.16 Total Counted Cancelled Neutrophils % (Manual) Cancelled Band Neutrophils % Cancelled Lymphocytes % (Manual) Cancelled Monocytes % (Manual) Cancelled Eosinophils % (Manual) Cancelled Basophils % (Manual) Cancelled Metamyelocytes % Cancelled Myelocytes % Cancelled Promyelocytes % Cancelled Blast Cells % Cancelled Plasma Cell % (Manual) Cancelled Other Cells % Cancelled Nucleated RBC % Cancelled 0 Nucleated RBCs/100 WBC Cancelled Differential Comment Cancelled Diff Path Review Cancelled Hypersegmented Neuts Cancelled Atypical Lymphocytes Cancelled Reactive Lymphocytes Cancelled Smudge Cells Cancelled Toxic Granulation Cancelled Toxic Vacuolation Cancelled Dohle Bodies Cancelled Deepa Rods Cancelled Platelet Estimate Cancelled Plt Morphology Comment Cancelled RBC Morphology Cancelled Cancelled Polychromasia Cancelled Hypochromasia Cancelled Basophilic Stippling Cancelled Anisocytosis Cancelled Microcytosis Cancelled Macrocytosis Cancelled Spherocytes Cancelled Sickle Cells Cancelled Target Cells Cancelled Tear Drop Cells Cancelled Ovalocytes Cancelled Stomatocytes Cancelled [place] Bodies Cancelled Tani Cells Cancelled Bite Cells Cancelled Crenated Cell Cancelled Acanthocytes (Spur) Cancelled Rouleaux Cancelled Schistocytes Cancelled PT 12.2 INR 0.9 APTT 22.1 L Sodium 126 L Potassium 4.0 Chloride 90 L Carbon Dioxide 23.8 Anion Gap 12 BUN 14 Creatinine 0.92 Estim Creat Clear Calc 59.87 Est GFR (MDRD) Non-Af 84 BUN/Creatinine Ratio 15.4 Glucose 110 H Lactic Acid < 1.0 Calcium 9.0 Magnesium 2.3 H Blood Type O POSITIVE Antibody Screen NEGATIVE Radiography Diagnostic Testing: Clinical Impression(s) from Imaging Studies Abdomen/Pelvis CTA 11/05/24 22:46 IMPRESSION: 1. Extensive calcified and noncalcified plaque throughout the abdominal aorta and iliac arteries without evidence of acute dissection or aneurysm. 2. 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 And other findings as described above. 3. Multiple uncinate bilobar low-attenuation hepatic lesions, concerning for metastasis. 4. Stable large central mesenteric mass with obscuration of the SMV as describedabove. 5. Extensive retroperitoneal adenopathy, unchanged. 6. Other stable findings as described above. Reading Location: [facility] Management Discussion w/another healthcare provider: Hospitalist and Senior Talent Management Consultant Discharge Plan Dx/Rx/DC Orders Clinical Impression: GI (gastrointestinal bleed), Benign essential hypertension, Colon cancer, Hyponatremia, Diverticulosis Disposition Disposition: Acute Care Hospital [facility] Discharge Date/Time: 11/06/24 03:21 What to do if you have Problems For any increased pain, shortness of breath, bleeding, nausea or vomiting, chestpain, or any unexpected problems, contact your Primary Care Provider. Call [facility] ([phone]) or report tothe closest Emergency Room. Call 911 if necessary. 11/06/24 0546 Cosigner Signature (if applicable): CC: MARYAM Olson ~ Signed [facility]04-07-2025 Radiology Diagnostic study note [facility] Imaging Services [address], [place] [id number] CTA Abd/Pelvis W/WO Contrast MR#: [id number] Acct: [id number] Name: JARED RAYMOND Rep #: [id number] : 1945 M 79 From: Shakira Ramsey MD PCP: Mariela Olson NP-Jenifer Status: REG ER Study:CTA Abd/Pelvis W/WO Contrast Date of Ex am: 11/05/24 Exam# [id number] Ordering Dr: Erica Linares DO PROCEDURE: CTA ABD/PELVIS W/WO CONTRAST 11/05/2024 REASON FOR EXAM: GI BLEED TECHNIQUE: CTA imaging of the abdomen and pelvis with intravenous contrast. Coronal and Sagittal reconstruction series were provided. 3D, 3D post processing, 3D reconstructions, Maximum intensity projection (MIPs) Volume rendering and Shaded surface rendering was provided. CONTRAST: Omnipaque 350 VOLUME: 100 mL Not Provided Gauge IV One or more dose reduction techniques were used (e.g., Automated exposure control, adjustment of the mA and/or kV according to patient size, use of iterative reconstruction technique). COMPARISON: CT abdomen and pelvis 10/24/2024 and CTA chest, abdomen and pelvis 06/08/2024 FINDINGS: Aorta: Moderate-severe mixed calcified and soft plaque. No abdominal aortic aneurysm. No evidence of dissection. Iliac Arteries: Severe diffuse atherosclerotic plaque. No aneurysm or significant stenosis. Celiac: Mild atherosclerotic calcification at the ostium. 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 Diffuse atherosclerotic calcification involving the splenic artery. The common and proper hepatic arteries are within normal limits. SMA: Moderate-severe atherosclerotic calcification of the ostium with noncalcified thrombus along the proximal aspect and resultant moderate luminal narrowing. ALICIA : Normal. Right Renal: Mild mixed calcified and soft plaque identified. Left Renal: Mild mixed calcified and soft plaque identified. Lung bases: Unremarkable Liver: Heterogenous attenuation. Multiple unchanged low-attenuation bilobar lesions, several of which demonstrate peripheral calcification.. Bile ducts: No intrahepatic or extrahepatic bile duct dilation. Gallbladder: No calcified gallstones. No gallbladder wall thickening or pericholecystic fluid. Spleen: Within normal limits. Pancreas: Redemonstration of a 4.0 x 4.0 cm soft tissue mesenteric mass, abutting the pancreatic head and partially encasing the distal SMA. Similar to the CT from 10/24/2024, the mass encases the SMA, extending to the root, of the mesentery with limited distal opacification. Adrenal glands: Onlh-ejkxpsl-wfbk-right adrenal thickening. Kidneys/Ureters: Symmetric bilateral renal enhancement. No hydronephrosis or renal calculi. No hydroureter. Bladder: Within normal limits Reproductive: Mild prostatomegaly. Lymph nodes: Stable extensive retroperitoneal adenopathy, not significantly changed since prior. Bowel: Stomach is unremarkable. No bowel dilation or wall thickening. Colonic diverticulosis without diverticulitis. Postoperative changes partial colonic resection with transverse colon anastomosis. There is an unchanged 15 x 11 mm soft tissue lesion (series 2 image 76) just lateral to the anastomosis. Peritoneum: No free air, ascites, or fluid collection. Retroperitoneum: Within normal limits. Abdominal wall: Soft tissue attenuation lesion anterior left abdominal wall.. Bones: Mild multilevel degenerative changes of the lumbar spine.. Maintained vertebral body heights. CT/CTA Abd/Pelvis W/WO Contrast IMPRESSION: 1. Extensive calcified and noncalcified plaque throughout the abdominal aorta and iliac arteries without evidence of acute dissection or aneurysm. 2. 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 And other findings as described above. 3. Multiple uncinate bilobar low-attenuation hepatic lesions, concerning for metastasis. 4. Stable large central mesenteric mass with obscuration of the SMV as describedabove. 5. Extensive retroperitoneal adenopathy, unchanged. 6. Other stable findings as described above. Reading Location: [facility] CC: MARYAM Olson; Harrison Linares DO ~ Database Analyst: Signed [facility]04-04-2025 Telephone encounter Note* Telephone Encounter - Filomena Rodrigues - 11/02/2024 2:30 PM EDT Patient and his daughter stopped in to talk to Jolynn Frias. 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 Please call patients daughter Teresa [phone] [facility]04-04-2025 Miscellaneous Notes* Telephone Encounter - Filomena Rodrigues - 11/02/2024 2:30 PM EDT Patient and his daughter stopped in to talk to Jolynn Frias. 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 Please call patients daughter Teresa [phone] [facility] Discharge summary [facility] Medical Records Department [address] [place] [address] Emergency Department Summary 10/24/24 MR#: [id number] Acct: [id number] Name: JARED RAYMOND Rep #:[id number] : 1945 79 From: Jerry Yuen PCP: MARYAM Guerra Status:REG ER Location: ED HPI History of Present Illness Chief Complaint: Flank Pain PFSH PFS Medical History (Updated 10/24/24 @ 19:[address] 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 Chronic hypertension Acute alteration in mental status Neuropathy Vasectomy planned Hyponatremia TIA (transient ischemic attack) CVA (cerebral vascular accident) Hypertension History of stroke Tobacco use Benign essential hypertension Home Medications ?Medication ?Instructions ?Recorded ?Last Taken ?Type amlodipine 5 mg tablet 5 mg PO DAILY HEART 05/16/24 06/22/24 History clonidine HCl 0.1 mg tablet 0.1 mg PO DAILY PRN hbp Unknown History ferrous sulfate 325 mg (65 mg 325 mg PO DAILY 30 days #60 tabs 06/10/24 06/21/24 Rx iron) tablet (Iron (ferrous sulfate)) metoprolol tartrate 50 mg tablet 25 mg PO QDAY 5 Unknown History Allergy/AdvReac Type Severity Reaction Status Date / Time No Known Allergies Allergy Verified 10/17/24 14:22 Family History Father Arthritis Alcohol abuse Mother Alcohol abuse Liver disease Surgical History History of hemicolectomy (04/25/24) H/O vasectomy S/P right hemicolectomy History of tonsillectomy History of appendectomy 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) Social History Smoking Status: Former smoker alcohol intake: never substance use type: does not use EXAM Physical Exam Const Vital Signs: 10/24/24 17:36 10/24/24 17:37 Temperature 97.3 F L 97.3 F L Temperature Source Temporal Temporal Pulse Rate 81 81 Respiratory Rate 18 18 Blood Pressure 170/67 H 170/67 H Blood Pressure Mean 101 101 Pulse Ox 100 97 Oxygen Delivery Method Room Air Room Air [facility] MDM Narrative Medical decision making narrative: HISTORY OF PRESENT ILLNESS: 79-year-old man p/w several days of right lower quadrant abdominal pain/flank pain. Notes he recently got a CT scan today. Notes he was recent antibiotics for presumed UTI. He notes nausea but no vomiting. Thinks may be dehydrated. He denies any urinary complaint such as dysuria, urgency, frequencyand hematuria. Denies diarrhea or constipation. Notes history of abdominal surgeries. REVIEW OF SYSTEMS: Pertinent positives: Flank pain, abdominal pain, nausea Pertinent negatives: Urinary complaints, vomiting PHYSICAL EXAM: Nursing triage notes reviewed, Vital signs reviewed Constitutional: please see mdm HENT: MMM Eyes: Pupils equal round and reactive to light, Extraocular muscles intact Neck: No stridor, no JVD, full neck ROM Lungs: Clear to auscultation, No wheezing or rales. No increased work of breathing, no conversational dyspnea, no accessory muscle use, no nasal flaring. No respiratory distress noted Heart: Regular rate and rhythm, No murmurs, No rubs and No gallops, 2+ distal pulses (radial, femoral, posterior tibial) in all extremities Abdomen: Soft, there is no tenderness, rigidity, rebound or guarding, no obviousperitoneal signs, no palpable pulsatile abdominal masses, no auscultated abdominal bruit : No CVAT, right testicle TTP, no scrotal skin changes noted, no perineal crepitus or induration to suggest Meli's gangrene. Intact hemostatic reflex. Normal testicular lie. Extremities: No edema Neuro: No new focal neurological deficits, cranial nerves II through XII intact,5/5 strength in allpresent extremities. Intact sensation to light touch in all present extremities, 2+ reflexes bilateral patella tendons. Skin: No rash or lesions noted MEDICAL DECISION MAKING: Chief Complaint: Flank pain External records reviewed: Reviewed CT scan from today. It is not read by radiology but I reviewed my own accord Factors affecting care: Hypertension, CAD, colon cancer, status post right hemicolectomy Social determinants of health: none History obtained from others: none Consults: none [facility] Narrative: The patient was initially hemodynamically stable, afebrile and nontoxic- appearing. Exam with right lower quad TTP, no CVA tenderness. No peritoneal signs. Right testicular pain as well. I considered the following differential diagnosis: UTI, nephrolithiasis, pyelonephritis, musculoskeletal injury ALL IMAGES (IF OBTAINED) HAVE BEEN PERSONALLY REVIEWED AND INTERPRETED BY MYSELF. CBC without leukocytosis, severe anemia, no thrombocytopenia. CT scan abdomen pelvis shows extensive metastatic burden but no acute surgical pathology noted Right testicle ultrasound shows no evidence of testicular mass, orchitis, epididymitis or testicular torsion urinalysis shows no evidence of urinary inflammation suggestive of UTI CBC with no leukocytosis to suggest a setting of the patient, no anemia or thrombocytopenia noted BMP with baseline hyponatremia, no sign of endorgan hypoperfusion or metabolic acidosis Lactate is wnl indicating no end-organ hypoperfusion and/or hypoxia. LFTs show no evidence of hepatobiliary pathology. Lipase is wnl indicating no pancreatic inflammation. No definitive acute surgery pathology noted in the abdomen specifically no sign of nephrolithiasis,pyelonephritis, testicular torsion or other intratesticular pathology. Suspect the patient symptomsrelated to significant metastatic burden. Will encourage close outpatient oncology and pain management follow-up. The patient and/or family, caregivers express understanding. The patient and/orfamily, caregivers agrees with the plan. Shared decision making: I will have a discussion with the patient and or visitors regarding risk/benefits of further testing or admission. They will be made aware of of the risk/benefits inherent in this decision they will be given the opportunity to voice understanding. Total critical care time today provided was at least 0minutes. This excludes separately billable procedures. Critical care time (if documented) is secondary to the patient having high probability of clinically significant/life threatening deterioration in the patient's condition which required my urgent intervention. Impression: 1. Metastatic cancer 2. Right flank pain Dispo: Discharge home This note was generated with Armor[employer] dictation software. It may contain incorrectwords, spelling, and punctuation that were not noted in review of the chart prior to signing. Lab Data Labs: Laboratory Results - last 24 hr 10/24/24 10/24/24 18:20 18:30 WBC 8.7 RBC 4.25 L Hgb 13.1 Hct 37.0 L MCV 87.1 MCH 30.8 MCHC 35.4 RDW Std Deviation 39.6 RDW Coeff of Deepika 12.4 Plt Count 307 MPV 9.0 Immature Gran % (Auto) 0.500 Neut % (Auto) 77.1 H Lymph % (Auto) 12.7 L Josephine % (Auto) 8.4 Eos % (Auto) 1.0 Baso % (Auto) 0.3 Absolute Neuts (auto) 6.7 Absolute Lymphs (auto) 1.10 Nucleated RBC % 0 Sodium 130 L Potassium 3.8 Chloride 92 L Carbon Dioxide 26.7 Anion Gap 11 BUN 11 Creatinine 0.94 Estim Creat Clear Calc 56.56 Est GFR (MDRD) Non-Af 82 BUN/Creatinine Ratio 11.6 Glucose 105 H Lactic Acid 1.1 Calcium 9.2 Total Bilirubin 0.55 AST 27 ALT 17 Alkaline Phosphatase 103 Total Protein 7.3 Albumin 4.3 Globulin 3.0 Albumin/Globulin Ratio 1.4 Lipase 28 Urine Color Straw Urine Clarity Clear Urine pH 8.0 Ur Specific [place] 1.010 Urine Protein 15 H Urine Glucose (UA) Normal Urine Ketones Negative Urine Occult Blood Negative Urine Nitrite Negative Urine Bilirubin Negative Urine Urobilinogen Normal Ur Leukocyte Esterase Negative Urine RBC 0-5 SEEN Urine WBC 0 SEEN Ur Squamous Epith Cells 0-5 SEEN Urine Bacteria 0 SEEN Urine Mucus 0 SEEN Radiography Diagnostic Testing: Clinical Impression(s) from Imaging Studies Testicular Ultrasound 10/24/24 18:11 IMPRESSION: NO SONOGRAPHIC EVIDENCE OF TESTICULAR TORSION. Reading Location: [facility] Discharge Plan Triage Chief Complaint: Flank Pain ED Provider: Jerry Hightower Dx/Rx/DC Orders Clinical Impression: Metastatic cancer Prescriptions: No Action metoprolol tartrate 50 mg tablet 25 mg PO QDAY amlodipine 5 mg tablet 5 mg PO DAILY ferrous sulfate [Iron (ferrous sulfate)] 325 mg (65 mg iron) tablet 325 mg PO DAILY 30 Days Qty: 60 5RF clonidine HCl 0.1 mg tablet 0.1 mg PO DAILY PRN (Reason: hbp) Patient Comments: pt states he only takes if bp is over 200+ Primary Care Provider: Mariela Olson Referrals: Mariela Olson NP-C [Primary Care Provider] - Print Language: Indonesian What to do if you have Problems For any increased pain, shortness of breath, bleeding, nausea or vomiting, chestpain, or any unexpected problems, contact your Primary Care Provider. Call [facility] ([phone]) or report tothe closest Emergency Room. Call 911 if necessary. 10/24/242033 Cosigner Signature (if applicable): CC: MARYAM Olson ~ Signed [facility]03-26-2025 Radiology Diagnostic study note [facility] Imaging Services [address] [place], [place] [address] Testicular with Arterial Flow MR#: [id number] Acct: [id number] Name: JARED RAYMOND Rep #: [id number] : 1945 M 79 From: Vanessa Rosado MD PCP: MARYAM Guerra Status: REG ER Study:Testicular with Arterial Flow Date of E xam: 10/24/24 Exam# [id number] Ordering Dr: Robby Hightower DO PROCEDURE: TESTICULAR WITH ARTERIAL FLOW 10/24/2024 REASON FOR EXAM: 79-year-old male, right testicular pain. TECHNIQUE: Palencia scale imaging and color and spectral Doppler analysis of the scrotal contents. COMPARISON: Same day CT abdomen pelvis. FINDINGS: RIGHT testicle: 4.3 x 3.0 x 2.2 cm Homogeneous echotexture. No intratesticular mass. Right epididymis: Unremarkable Small right hydrocele. LEFT testicle: 4.0 x 3.0 x 2.0 cm Homogeneous echotexture. No intratesticular mass. Left epididymis: Unremarkable Moderate left hydrocele. Other findings: No large varicocele. DOPPLER FINDINGS: Symmetric color doppler blood flow signal at both testes. Normal arterial inflow and venous outflow waveforms at both testes. US/Testicular with Arterial Flow IMPRESSION: NO SONOGRAPHIC EVIDENCE OF TESTICULAR TORSION. Reading Location: [id number] CC: CITY ASSESSOR-C Mariela Olson; Dr. Jerry Hightower, DO ~ Database Analyst: Signed [facility]03-26-2025 Radiology Diagnostic study note [facility] Imaging Services [address] [place] [address] Abdomen/Pelvis W IV Cont ONLY MR#: [id number] Acct: [id number] Name: JARED RAYMOND Rep #: [id number] : 1945 M 79 From: Vanessa Rosado MD PCP: MARYAM Guerra Status: REG CLI Study:Abdomen/Pelvis W IV Cont ONLY Date of E xam: 10/24/24 Exam# [id number] Ordering Dr: Thang Hernandez MD PROCEDURE: ABDOMEN/PELVIS W IV CONT ONLY 10/24/2024 REASON FOR EXAM: 79-year-old male, follow-up colon cancer, history of partial colectomy 2 months ago, patient reporting right kidney pain. TECHNIQUE: Abdomen and pelvis CT without and with intravenous contrast. Coronal and Sagittal reconstruction series were provided. PATIENT PREPARATION: Per protocol ORAL CONTRAST TYPE: None. CONTRAST: Isovue-300 VOLUME: 100mL One or more dose reduction techniques were used (e.g., Automated exposure control, adjustment of the mA and/or kV according to patient size, use of iterative reconstruction technique. RADIATION DOSE SUMMARY: CTDlvol: 26 mGy DLP: 230 mGycm COMPARISON: CT abdomen pelvis 06/08/2024. FINDINGS: Lung bases: Bibasilar atelectasis. Partially visualized prior median sternotomyand CABG. The heart is normal in size. Liver: The liver is normal in size with several ill-defined hypodensities throughout the left and right hepatic lobes. The largest lesion is within segment 4A along the hepatic dome, measuring 2.3 x 2.2 cm (series 2, image15). The major portal vein is patent. No biliary ductal dilation. Gallbladder: No radiopaque stones within the gallbladder. Spleen: Normal in size. Pancreas: The pancreatic body/tail is unremarkable. There is a large, ill- defined soft tissue mass which partially encases the pancreatic head and neck, and is centered within the central mesentery. The mass measures at least 4.7 x 4.2 cm (series 2, image 43). The mass does not appear to arise from the pancreas, however. There is encasement and obliteration of the SMV with reconstitution just proximal to the portal confluence. Adrenals: Nodular thickening of the left adrenal gland. Unremarkable right adrenal gland. Kidneys: Right renal calcification, likely vascular. No hydronephrosis or nephrolithiasis. Bladder: Distended and unremarkable. Reproductive Organs: The prostate is mildly enlarged. Bowel: Prior large bowel resection and anastomosis within the right upper quadrant. Small soft tissue mass adjacent to the bowel anastomosis measuring approximately 1.4 x 1.2 cm (series 2, image 50). The bowel loops are normal in caliber. Trace pelvic ascites. No free air. Probable prior appendectomy. Distal colonic diverticulosis. Lymph nodes: Pathologic retroperitoneal, retrocaval, periportal and mesenteric lymphadenopathy. Vasculature: Marked mixed calcific plaque of the aortoiliac vessels. Occlusion of the SMV as described above. Bones: Thoracolumbar spondylosis. Mild subcutaneous thickening of the midline anterior abdominal wall, compatible with recent surgery. CT/Abdomen/Pelvis W IV Cont ONLY IMPRESSION: 1. Recent bowel resection and anastomosis for colon cancer with development of diffuse abdominal lymphadenopathy and hepatic lesions, compatible with maggie and hepatic metastatic disease. Nodular thickening of the left adrenal gland, which is indeterminate but may represent adrenal metastatic disease. 2. Large central mesenteric mass which partially encases, but does not appear toarise from the pancreatic head and neck. Findings are indeterminate, however most compatible with conglomerate maggie metastatic disease. Additional differential diagnosis includes pancreatic adenocarcinoma. Consider endoscopic biopsy given location of mass. 3. 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 4. Soft tissue mass adjacent to the bowel anastomosis, which is indeterminate and may represent site of fat necrosis or soft tissue thickening from recent surgery, however peritoneal metastasis can not be excluded. Attentionon follow-up imaging recommended. Reading Location: [id number] CC: MARYAM Olson; Dr. Papi Hernandez MD ~ Database Analyst: Signed [facility]03-26-2025 Discharge summary Author Jerry Hightower [facility] Note Date/Time October 24, 2024 8:3 4pm [facility] Medical Records Department [address] [place] [address] Emergency Department Summary 10/24/24 MR#: [id number] Acct: [id number] Name: JARED RAYMOND Rep #:[id number] : 1945 79 From: Jerry Yuen PCP: MARYAM Guerra Status:REG ER Location: ED HPI History of Present Illness Chief Complaint: Flank Pain [facility] Medical History (Updated 10/24/24 @ 19:[address] Jerry Hightower, ) Encounter for education Pre-op testing Wears dentures Arthritis Anemia Gastric reflux Former smoker History of edema History of echocardiogram History of stress test Cardiology follow-up encounter Aortic stenosis Preop cardiovascular exam Colon cancer Overweight (BMI 25.0-29.9) Colonic mass Coronary artery disease 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 Chronic hypertension Acute alteration in mental status Neuropathy Vasectomy planned Hyponatremia TIA (transient ischemic attack) CVA (cerebral vascular accident) Hypertension History of stroke Tobacco use Benign essential hypertension Home Medications ?Medication ?Instructions ?Recorded ?Last Taken ?Type amlodipine 5 mg tablet 5 mg PO DAILY HEART 05/16/24 06/22/24 History clonidine HCl 0.1 mg tablet 0.1 mg PO DAILY PRN hbp Unknown History ferrous sulfate 325 mg (65 mg 325 mg PO DAILY 30 days #60 tabs 06/10/24 06/21/24 Rx iron) tablet (Iron (ferrous sulfate)) metoprolol tartrate 50 mg tablet 25 mg PO QDAY 5 Unknown History Allergy/AdvReac Type Severity Reaction Status Date / Time No Known Allergies Allergy Verified 10/17/24 14:22 Family History Father Arthritis Alcohol abuse Mother Alcohol abuse Liver disease Surgical History History of hemicolectomy (04/25/24) H/O vasectomy S/P right hemicolectomy History of tonsillectomy History of appendectomy 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) Social History Smoking Status: Former smoker alcohol intake: never substance use type: does not use EXAM Physical Exam Const Vital Signs: 10/24/24 17:36 10/24/24 17:37 Temperature 97.3 F L 97.3 F L Temperature Source Temporal Temporal Pulse Rate 81 81 Respiratory Rate 18 18 Blood Pressure 170/67 H 170/67 H Blood Pressure Mean 101 101 Pulse Ox 100 97 Oxygen Delivery Method Room Air Room Air [facility] MDM Narrative Medical decision making narrative: HISTORY OF PRESENT ILLNESS: 79-year-old man p/w several days of right lower quadrant abdominal pain/flank pain. Notes he recently got a CT scan today. Notes he was recent antibiotics for presumed UTI. He notes nausea but no vomiting. Thinks may be dehydrated. He denies any urinary complaint such as dysuria, urgency, frequency and hematuria. Denies diarrhea or constipation. Notes history of abdominal surgeries. REVIEW OF SYSTEMS: Pertinent positives: Flank pain, abdominal pain, nausea Pertinent negatives: Urinary complaints, vomiting PHYSICAL EXAM: Nursing triage notes reviewed, Vital signs reviewed Constitutional: please see mdm HENT: MMM Eyes: Pupils equal round and reactive to light, Extraocular muscles intact Neck: No stridor, no JVD, full neck ROM Lungs: Clear to auscultation, No wheezing or rales. No increased work of breathing, no conversational dyspnea, no accessory muscle use, no nasal flaring. No respiratory distress noted Heart: Regular rate and rhythm, No murmurs, No rubs and No gallops, 2+ distal pulses (radial, femoral, posterior tibial) in all extremities Abdomen: Soft, there is no tenderness, rigidity, rebound or guarding, no obviousperitoneal signs, no palpable pulsatile abdominal masses, no auscultated abdominal bruit : No CVAT, right testicle TTP, no scrotal skin changes noted, no perineal crepitus or induration to suggest Meli's gangrene. Intact hemostatic reflex. Normal testicular lie. Extremities: No edema Neuro: No new focal neurological deficits, cranial nerves II through XII intact,5/5 strength in all present extremities. Intact sensation to light touch in all present extremities, 2+ reflexes bilateral patella tendons. Skin: No rash or lesions noted MEDICAL DECISION MAKING: Chief Complaint: Flank pain External records reviewed: Reviewed CT scan from today. It is not read by radiology but I reviewed my own accord Factors affecting care: Hypertension, CAD, colon cancer, status post right hemicolectomy Social determinants of health: none History obtained from others: none Consults: none MDM Narrative: The patient was initially hemodynamically stable, afebrile and nontoxic- appearing. Exam with right lower quad TTP, no CVA tenderness. No peritoneal signs. Right testicular pain as well. I considered the following differential diagnosis: UTI, nephrolithiasis, pyelonephritis, musculoskeletal injury ALL IMAGES (IF OBTAINED) HAVE BEEN PERSONALLY REVIEWED AND INTERPRETED BY MYSELF. CBC without leukocytosis, severe anemia, no thrombocytopenia. CT scan abdomen pelvis shows extensive metastatic burden but no acute surgical pathology noted Right testicle ultrasound shows no evidence of testicular mass, orchitis, epididymitis or testicular torsion urinalysis shows no evidence of urinary inflammation suggestive of UTI CBC with no leukocytosis to suggest a setting of the patient, no anemia or thrombocytopenia noted BMP with baseline hyponatremia, no sign of endorgan hypoperfusion or metabolic acidosis Lactate is wnl indicating no end-organ hypoperfusion and/or hypoxia. LFTs show no evidence of hepatobiliary pathology. Lipase is wnl indicating no pancreatic inflammation. No definitive acute surgery pathology noted in the abdomen specifically no sign of nephrolithiasis, pyelonephritis, testicular torsion or other intratesticular pathology. Suspect the patient symptoms related to significant metastatic burden. Will encourage close outpatient oncology and pain management follow-up. The patient and/or family, caregivers express understanding. The patient and/orfamily, caregivers agrees with the plan. Shared decision making: I will have a discussion with the patient and or visitors regarding risk/benefits of further testing or admission. They will be made aware of of the risk/benefits inherent in this decision they will be given the opportunity to voice understanding. Total critical care time today provided was at least 0minutes. This excludes separately billable procedures. Critical care time (if documented) is secondary to the patient having high probability of clinically significant/life threatening deterioration in the patient's condition which required my urgent intervention. Impression: 1. Metastatic cancer 2. Right flank pain Dispo: Discharge home This note was generated with [employer] Hite[employer] software. It may contain incorrectwords, spelling, and punctuation that were not noted in review of the chart prior to signing. Lab Data Labs: Laboratory Results - last 24 hr 10/24/24 10/24/24 18:20 18:30 WBC 8.7 RBC 4.25 L Hgb 13.1 Hct 37.0 L MCV 87.1 MCH 30.8 MCHC 35.4 RDW Std Deviation 39.6 RDW Coeff of Deepika 12.4 Plt Count 307 MPV 9.0 Immature Gran % (Auto) 0.500 Neut % (Auto) 77.1 H Lymph % (Auto) 12.7 L Josephine % (Auto) 8.4 Eos % (Auto) 1.0 Baso % (Auto) 0.3 Absolute Neuts (auto) 6.7 Absolute Lymphs (auto) 1.10 Nucleated RBC % 0 Sodium 130 L Potassium 3.8 Chloride 92 L Carbon Dioxide 26.7 Anion Gap 11 BUN 11 Creatinine 0.94 Estim Creat Clear Calc 56.56 Est GFR (MDRD) Non-Af 82 BUN/Creatinine Ratio 11.6 Glucose 105 H Lactic Acid 1.1 Calcium 9.2 Total Bilirubin 0.55 AST 27 ALT 17 Alkaline Phosphatase 103 Total Protein 7.3 Albumin 4.3 Globulin 3.0 Albumin/Globulin Ratio 1.4 Lipase 28 Urine Color Straw Urine Clarity Clear Urine pH 8.0 Ur Specific [place] 1.010 Urine Protein 15 H Urine Glucose (UA) Normal Urine Ketones Negative Urine Occult Blood Negative Urine Nitrite Negative Urine Bilirubin Negative Urine Urobilinogen Normal Ur Leukocyte Esterase Negative Urine RBC 0-5 SEEN Urine WBC 0 SEEN Ur Squamous Epith Cells 0-5 SEEN Urine Bacteria 0 SEEN Urine Mucus 0 SEEN Radiography Diagnostic Testing: Clinical Impression(s) from Imaging Studies Testicular Ultrasound 10/24/24 18:11 IMPRESSION: NO SONOGRAPHIC EVIDENCE OF TESTICULAR TORSION. Reading Location: [facility] Discharge Plan Triage Chief Complaint: Flank Pain ED Provider: Jerry Hightower Dx/Rx/DC Orders Clinical Impression: Metastatic cancer Prescriptions: No Action metoprolol tartrate 50 mg tablet 25 mg PO QDAY amlodipine 5 mg tablet 5 mg PO DAILY ferrous sulfate [Iron (ferrous sulfate)] 325 mg (65 mg iron) tablet 325 mg PO DAILY 30 Days Qty: 60 5RF clonidine HCl 0.1 mg tablet 0.1 mg PO DAILY PRN (Reason: hbp) Patient Comments: pt states he only takes if bp is over 200+ Primary Care Provider: Mariela Olson Referrals: Mariela Olson, MARYAM [Primary Care Provider] - Print Language: Indonesian What to do if you have Problems For any increased pain, shortness of breath, bleeding, nausea or vomiting, chestpain, or any unexpected problems, contact your Primary Care Provider. Call [facility] ([phone]) or report to the closest Emergency Room. Call 911 if necessary. 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 October 17, 2024 2:04pm 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 inactive October 31, 2024 10:52am Medical non-compliance acute Ap 2024 2:56am Abdominal pain resolved November 06, 2024 2:56am Anemia resolved November 06 2:56am GI (gastrointestinal bleed) resolved November 06, 2024 2:56am Hyponatremia resolved November 06, 025 2:56am Uncontrolled hypertension resolved November 06, 2024 2:56am 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 inactive November 06, 2024 2:56am Mediastinal lymphadenopathy inactive November 06, 2024 2:56am GI bleed inactive November 18 12:59pm Rectal bleeding inactive October 12:59pm Anemia chronic November 28 10:59am 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 November 28, 2024 10:59am Colon cancer chronic November 28, 2024 10:59am 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 November 28, 2024 10:59am Regional lymph node metastasis present chronic November 28, 2 025 10:59am Elevated blood pressure reading with diagnosis of hypertension acute December 04, 2024 11:24am Metastatic colon cancer to liver acute December 04, 2024 11:24am 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 December 04, 2024 11:24am 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 December 042024 11:24am Regional lymph node metastasis present chronic December 04, 2024 11:24am [facility] Work Phone: 1(170) 772-274303-19-2025 Evaluation note* Diagnosis Onset Date Resolution Status Admit Date RLQ abdominal pain acute October 17, 2024 2:04pm Aortic stenosis chronic September 2:04pm Benign essential hypertension chronic October 17, 2024 2:04pm 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, 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 October 17, 2024 2:04pm 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 inactive October 31, 2024 10:52am Medical non-compliance acute Ap 2024 2:56am Abdominal pain resolved November 06, 2024 2:56am Anemia resolved November 06 2:56am GI (gastrointestinal bleed) resolved November 06, 2024 2:56am Hyponatremia resolved November 06, 025 2:56am Uncontrolled hypertension resolved November 06, 2024 2:56am 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 inactive November 06, 2024 2:56am Mediastinal lymphadenopathy inactive November 06, 2024 2:56am GI bleed inactive November 18 12:59pm Rectal bleeding inactive October 12:59pm Anemia chronic November 28 10:59am 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 November 28, 2024 10:59am Colon cancer chronic November 28, 2024 10:59am 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 November 28, 2024 10:59am Regional lymph node metastasis present chronic November 28, 2 025 10:59am Elevated blood pressure reading with diagnosis of hypertension acute December 04, 2024 11:24am Metastatic colon cancer to liver acute December 04, 2024 11:24am 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 December 04, 2024 11:24am 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 December 042024 11:24am Regional lymph node metastasis present chronic December 04, 2024 11:24am Anemia chronic January 09 3:16pm 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 January 09, 2025 3:16pm Colon cancer chronic January 09, 2 025 3:16pm 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 January 09, 2025 3:16pm Regional lymph node metastasis present chronic January 09 3:16pm [facility] Work Phone: 1(168) 342-585902-07-2025 History of Present illness Narrative* Encounter Date Complaint History Of Prese nt Illness AMD The 79 year old patient presents for evaluation of AMD in the right and left eyes.VA OU is Stable , No Flashes or Floaters OU, No Pain OU AMD The 79 year old patient presents for evaluation of AMD in the right and left eyes.VA OU is worsening w/ Blurred VA and having distorted VA OU , No Flashes or Floaters OU, No Pain OUNo Amsler at home / +eye vit daily Macular Degeneration The 79 year old patient presents for evaluation of Macular Degeneration OU. Vision Stable OU. Denies Floaters and Flashes OU. No pain or discomfort OU. macular degeneration The 79 year old patient presents for evaluation of macular degeneration OU Amsler grid at home OU and seldom monitors, but denies new changes. (+) eye vitamin PO VA at distance without correction about the same since last exam; near VA OK with OTC readers and will alternate between +1.00 and +2.00 tompkins and feels this works for him. Seldom will see floaters and flashes, but this is not new OU No pain OU, but will note a discomfort OS in the AM when he touches his eye. macular degeneration The 78 year old patient presents for evaluation of macular degeneration OU Amsler at home with no new changes OU but seldom monitors, usually can tell by his [employer] puzzles. (+) eye vitamin PO Vision seems to be worse in both eyes with onset of worsening a few weeks ago, clarity seems worse and mostly at near. Distance VA without correction OK but overall foggy OU Denies S&S RD OU No pain OD, but intermittent pressure sensation OS usually when wiping it. Wet AMD OS The 78 year old patient presents for evaluation of Wet AMD OS, Dry AMD OD. Possible Eylea OS today. Pt denies new changes in vision OU since last exam. Macular Degeneration The 78 year old patient presents for evaluation of macular degeneration in the left eye. Presents for injection today. Wet AMD OS Dry AMD OD The 78 yea r old patient presents for evaluation of Wet AMD OS Dry AMD OD. No pain /discomfort OU. Vision seems about same since last visit OU. Patient denies floaters. Flashes occasionally OU. Macular Degeneration The 78 year old patient presents for evaluation of wet AMD OS and dry AMD ODStable vision OU at distance without correction and near with OTC readers. He will often wear his readers when looking at a distance.Denies trouble with floaters and states he will see a little strobe of light every once in awhile, intermittent, left eye.No pain or discomfort OU AMD The 78 year old patient presents for evaluation of AMD in the right and left eyes. AREDS 2 BID. VA same OU. Denies flashes / new floaters. AMD The 78 year old male presents for evaluation of AMD in the right and left eyes. AREDS 2 BID. Amsler grid used, no changes noticed. VA same OU. Denies flashes / new floaters. Macular degeneration The 77 year old male presents for evaluation of Macular degeneration in the left eye. Pt reports no changes in VA since last exam. IO Eyelea #2 OS. macular degeneration The 77 year old male presents for evaluation of macular degeneration in the left eye. Pt reports no changes in VA since last exam. Using AREDS/AMSLER. Macular Degeneration The 77 year old male presents for evaluation of Macular Degeneration in the left eye. Pt reports of no changes in VA since last visit. Pt currently using AMSLER/AREDS. macular degeneration The 77 year old male presents for treatment for macular degeneration. IO Avastin OS today. No new changes or concerns. AMD OU The 77 year old male presents for evaluation of AMD OU. VA stable OU. Wears OTC readers. H/O hypertension and H/O 5 strokes. No flashes / floaters. Denies pain / discomfort. Last AVN IO 09/01/2022. Present for IO AVN #2 OS. No Amsler grid used. Taking ARED's, not every day. new patient The 77 year old male presents for evaluation of new patient for wet AMD in the left eye. Patient has history of 5 strokes. Vision is decreased OU, OS vision is very cloudy, onset was 2 months ago, symptoms are constant with it affecting near / distant vision. Referred by Julissa Yap O.D. at [facility]. Wears OTC readers. Straight lines appear wavy in OS. 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 October 17, 2024 2:04pm 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 inactive October 31, 2024 10:52am Medical non-compliance acute Ap 2024 2:56am Abdominal pain resolved November 06, 2024 2:56am Anemia resolved November 06 2:56am GI (gastrointestinal bleed) resolved November 06, 2024 2:56am Hyponatremia resolved November 06, 2:56am Uncontrolled hypertension resolved November 06, 2024 2:56am 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 inactive November 06, 2024 2:56am Mediastinal lymphadenopathy inactive November 06, 2024 2:56am GI bleed acute November 18 12:59pm [facility] Work Phone: 1(299) 408-968301-08-2025 Evaluation note* Diagnosis Onset Date Resolution Status Admit Date 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 inactive August 08 9:51am RLQ abdominal pain acute October 17, 2024 2:04pm Aortic stenosis chronic September 2:04pm Benign essential hypertension chronic October 17, 2024 2:04pm 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, 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 October 17, 2024 2:04pm 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 inactive October 31, 2024 10:52am Medical non-compliance acute Ap 2024 2:56am Abdominal pain resolved November 06, 2024 2:56am Anemia resolved November 06 2:56am GI (gastrointestinal bleed) resolved November 06, 2024 2:56am Hyponatremia resolved November 06 025 2:56am Uncontrolled hypertension resolved November 06, 2024 2:56am 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 inactive November 06, 2024 2:56am Mediastinal lymphadenopathy inactive November 06, 2024 2:56am GI (gastrointestinal bleed) resolved November 18, 2024 12:59pm Rectal bleeding acute October 12:59pm [facility] Work Phone: 1(966) 254-898701-08-2025 Evaluation note* Diagnosis Onset Date Resolution Status Admit Date 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 inactive August 08 9:51am RLQ abdominal pain acute October 17, 2024 2:04pm Aortic stenosis chronic September 2:04pm Benign essential hypertension chronic October 17, 2024 2:04pm 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, 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 October 17, 2024 2:04pm 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 inactive October 31, 2024 10:52am Medical non-compliance acute Ap 2024 2:56am Abdominal pain resolved November 06, 2024 2:56am Anemia resolved November 06 2:56am GI (gastrointestinal bleed) resolved November 06, 2024 2:56am Hyponatremia resolved November 06 025 2:56am Uncontrolled hypertension resolved November 06, 2024 2:56am 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 inactive November 06, 2024 2:56am Mediastinal lymphadenopathy inactive November 06, 2024 2:56am GI bleed inactive November 18 12:59pm Rectal bleeding inactive October 12:59pm Anemia chronic November 28 10:59am 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 November 28, 2024 10:59am Colon cancer chronic November 28, 2024 10:59am 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 November 28, 2024 10:59am Regional lymph node metastasis present chronic November 28, 025 10:59am Elevated blood pressure reading with diagnosis of hypertension acute December 04, 2024 11:24am Metastatic colon cancer to liver acute December 04, 2024 11:24am 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 December 04, 2024 11:24am 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 December 042024 11:24am Regional lymph node metastasis present chronic December 04, 2024 11:24am [facility] Work Phone: 1(992) 362-211612-18-2024 Evaluation note* Diagnosis Onset Date Resolution Status Admit Date Encounter for education acute D ecember 2023 8:52am 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 July 18, 2 024 8:52am 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 August 08 9:51am RLQ abdominal pain acute October 17, 2024 2:04pm Aortic stenosis chronic September 2:04pm Benign essential hypertension chronic October 17, 2024 2:04pm 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, 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 October 17, 2024 2:04pm 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 October 31, 2024 10:52am Anemia acute November 06 2:56am Colon cancer acute November 06, 025 2:56am GI (gastrointestinal bleed) acute November 06, 2024 2:56am Mediastinal lymphadenopathy acute November 06, 2024 2:56am RLQ abdominal pain acute November 06, 2024 2:56am Benign essential hypertension chronic November 06, 2024 2:56am 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 November 06, 2024 2:56am [facility] Work Phone: 1(665) 226-251512-18-2024 Evaluation note* Diagnosis Onset Date Resolution Status Admit Date Encounter for education acute D 2023 8:52am 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 July 18, 2 024 8:52am 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 August 08 9:51am RLQ abdominal pain acute October 17, 2024 2:04pm Aortic stenosis chronic September 2:04pm Benign essential hypertension chronic October 17, 2024 2:04pm 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, 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 October 17, 2024 2:04pm 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 October 31, 2024 10:52am Abdominal pain acute November 06, 2024 2:56am Anemia acute November 06 2:56am GI (gastrointestinal bleed) acute November 06, 2024 2:56am Hyponatremia acute November 06, 2 025 2:56am Mediastinal lymphadenopathy acute November 06, 2024 2:56am Medical non-compliance acute Ap 2024 2:56am Uncontrolled hypertension acute November 06, 2024 2:56am 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 Related to Exdtve age-rel mclr degn, left eye, with actv chrdl neovas Impression/Plan Related to Age-r elated nuclear cataract, bilateral Impression/Plan Related to Exdtv e age-rel mclr degn, left eye, with actv chrdl neovas Impression/Plan Related to Nexdt ve age-related mclr degn, right eye, intermed dry stage Return in 6 week(s) with Darrel Pringle MD for follow up exam and OCT. 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 Related to Exdtve age-rel mclr degn, left eye, with actv chrdl neovas Impression/Plan Related to Age-r elated nuclear cataract, bilateral Impression/Plan Related to Nexdt ve age-related mclr degn, right eye, intermed dry stage Impression/Plan Related to Retin al hemorrhage, left eye Impression/Plan Related to Exdtv e age-rel mclr degn, left eye, with actv chrdl neovas Return in 4 week(s) with Darrel Pringle MD for IO AVASTIN #3 OS and OCT. Related to Exdtve age-rel mclr degn, left eye, with actv chrdl neovas Impression/Plan Related to Exdtv e age-rel mclr degn, left eye, with actv chrdl neovas Return in 4 week(s) with Darrel Pringle MD for IO AVASTIN #2 OS and OCT. 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 July 04 2:12pm Encounter for education acute D ecember 2023 8:52am 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 July 18, 024 8:52am 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 August 08 9:51am RLQ abdominal pain acute October 17, 2024 2:04pm Aortic stenosis chronic September 2:04pm Benign essential hypertension chronic October 17, 2024 2:04pm 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, 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 October 17, 2024 2:04pm [facility] Work Phone: 1(557) 149-789911-22-2024 [facility]11-18-2024 [facility]11-10-2024 [facility] 05-01-2024 [facility]09-27-2024 [facility]09-15-2024 [facility]07-25-2022 Miscellaneous Notes * Telephone Encounter - Michela Saucedo - 02/22/2022 3:14 PM EDT Patient arrived at the [facility] in [place], [place] requesting an appointment to become established with a new PCP in this region. The patient reports having similar symptoms in the right upper extremity that he experienced prior to his quintuple bypass surgery. He was provided the phone number and name of the cardiac surgeon and was scheduled to see Dr. Chapman 05/28/22. Please advise patient if he should follow up with pulp tester prior to PCP visit. [facility] History of Past illness Narrative* Problem Noted Date Resolved Date On mechanically assisted ventilation 07/19/2019 07/20/2019 Overview: Grade I airway A/P- WTE Stress hyperglycemia 07/19/2019 07/21/2019 Overview: H: Post op A/P-No h/o DM. [place]-operative insulin resistance and exacerbation of hyperglycemia. RHI drip per ICU protocol, transition to SSI documented as of this encounter (statuses as of 02/22/2022) [facility] Clinical Note Date No Information [facility] Work Phone: Consult note Author Kush Daniel [facility] Note Date/Time November 20, 2024 1:4 3pm [facility] Medical Records Department [address] [place] [address] Counseling Note - Pharmacy 11/20/24 1342 MR#: [id number] Acct: [id number] Name: JARED RAYMOND Rep #:[id number] : 1945 79 From: Kush Daniel PCP: MARYAM Guerra Status:ADM IN Y Location: [place] [address] [place]acy [place] Med Reconciliation Pharmacy Service has performed discharge medication reconciliation for this patient. The patient's discharge medication list was reviewed for discrepancies and discrepancies were resolved. Medications at Discharge Home Medications amlodipine 5 mg tablet 5 mg PO DAILY HEART 05/16/24 clonidine HCl 0.1 mg tablet 0.1 mg PO DAILY PRN hbp 06/08/24 ferrous sulfate 325 mg (65 mg iron) tablet (Iron (ferrous sulfate)) 325 mg PO DAILY 30 days #60 tabs 06/10/24 metoprolol tartrate 50 mg tablet 25 mg PO QDAY Blood pressure/heart rat 10/17/24 oxycodone 5 mg tablet 5 mg PO Q6H PRN pain 7 days #28 tabs 10/24/24 oxycodone 5 mg tablet 5 mg PO Q4H PRN pain 7 days #30 tabs 11/20/24 11/20/24 1343 <Electronically signed by Kush guzman> Date _ Kush Vela Signature (if applicable): Date CC: ~ Signed [facility] Work Phone: Discharge summary* Clinical Note Date No Information [facility] Work Phone: Discharge summary Author Stevie Harrington [facility] Note Date/Time November 07, 2024 5:07 pm [facility] Medical Records Department [address] [place] [address] Discharge Summary 11/07/24 1655 MR#: [id number] Acct: [id number] Name: JARED RAYMOND Rep #:[id number] : 1945 79 From: Stevie Harrington DO PCP: MARYAM Guerra Status:ADM IN Location: [place] [id number] Providers Date of Admission: 11/06/24 Primary Care Physician: MARYAM Guerra Consultations 11/06/24 03:28 Consult: Gastroenterology Routine Consulting Provider: [facility] Reason for Consult: LGIB with BRBPR; recurrent. EMERGENT Consult: No MD Notified: Yes Date Notified: 11/06/24 Time Notified: 02:57 Method of Notification: ED Physician Initiated Reason For Visit: LGIB WITH BRBPR; RECURRENT Diagnosis Discharge Diagnosis (1) GI (gastrointestinal bleed): Status: Acute Code(s): K92.2 - Gastrointestinal hemorrhage, unspecified Qualifiers: GI bleed type/associated pathology: unspecified gastrointestinal hemorrhage type Qualified Code(s): K92.2 - Gastrointestinal hemorrhage, unspecified Plan: Hg stable. GI on consult. CTA A/P no obvious source of bleeding. Colonoscopy on 11/06: ulceration clipped. Bleeding abated during the procedure. DWDr. Friend, no plans for repeat colonoscopy as pt has had no further bleeding and hemoglobin has remained stable. Plan Colon cancer: * multiple uncinate bilobar hepatic lesions, concerning for metastasis. Stable large central mesenteri mass with obscuration of the SMV. Extensive retroperitoneal adenopathy, unchanged. * Last saw oncology 10/31. Stage IIIC. Per Dr. Hernandez's note, declined chemotherapy. Daughter wants him to try Ivermectin. Recommended for second opinion. * Pt and family to determine on course of action, if wishing to pursue ivermectin, then they will have to find a specialist who will prescribe them that for cancer. If not, then can follow up with Dr. Hernandez. Abdominal pain * prior to arrival. Patient attributes to gas. Start simethicone. Hypertensive urgency * improved * resume amlodipine, metoprolol * PRN hydralazine VTE prophylaxis: SCDs. Medications at Discharge Home Medications amlodipine 5 mg tablet 5 mg PO DAILY HEART 05/16/24 clonidine HCl 0.1 mg tablet 0.1 mg PO DAILY PRN hbp 06/08/24 ferrous sulfate 325 mg (65 mg iron) tablet (Iron (ferrous sulfate)) 325 mg PO DAILY 30 days #60 tabs 06/10/24 metoprolol tartrate 50 mg tablet 25 mg PO QDAY Blood pressure/heart rat 10/17/24 oxycodone 5 mg tablet 5 mg PO Q6H PRN pain 7 days #28 tabs 10/24/24 simethicone 80 mg chewable tablet 80 mg PO HS #0 tabs 11/07/24 Hospital Course Summary of Care Provided Minutes Spent on Discharge: 32 Weight / BMI Weight Weight: 72.8 kg Body Mass Index (BMI) 25.1 ABG / Lab / Microbiology Data 11/07/24 03:57 11/07/24 03:57 Laboratory: Laboratory Results - last 24 hr 11/07/24 03:57: WBC 6.2, RBC 3.89 L, Hgb 11.9 L, Hct 34.0 L, MCV 87.4, MCH 30.6,MCHC 35.0, RDW Std Deviation 39.5, RDW Coeff of Deepika 12.3, Plt Count 285, MPV 9.3, Immature Gran % (Auto) 0.500, Neut % (Auto) 70.4 H, Lymph % (Auto) 14.8 L, Josephine % (Auto) 12.5 H, Eos % (Auto) 1.3, Baso % (Auto) 0.5, Absolute Neuts (auto)4.3, Absolute Lymphs (auto) 0.91, Nucleated RBC % 0, Sodium 128 L, Potassium 3.8, Chloride 96 L, Carbon Dioxide 18.1 L, Anion Gap 14, BUN 16, Creatinine 1.02, Estim Creat Clear Calc 54.00, Est GFR (MDRD) Non-Af 74, BUN/Creatinine Ratio 16.0, Glucose 92, Calcium 8.6 Microbiology: Microbiology 11/06/24 06:10 Stool Stool Lactoferrin - Final 11/06/24 06:10 Stool Enteric Bacteriology - Final 11/06/24 06:10 Stool Clostridioides difficile (PCR) - Final 11/05/24 23:44 Stool Stool Occult Blood ([facility]INSON) - Final Occult Blood Positive D/C Instructions Discharge Diet: No restrictions DC O2, CPAP, BIPAP Needs Home O2 Discharge instructions: No Meaningful Use Info Meaningful Use Meaningful Use Diagnoses (Choose all that apply): None applicable Ischemic Stroke Statin Dosing Therapy Reference: STATIN DOSE THERAPY REFERENCE: * Patients > 75 years receive moderate or high dose statin therapy. * Patients 75 years or YOUNGER should receive HIGH intensity statin dose unless contraindicated. You will be required to document reason for non-treatment if statin daily dose does not meet guidelines. HIGH DOSE STATIN THERAPY DAILY Atorvastatin > than or = to 40 mg Rosuvastatin > than or = to 20 mg Amlodipine + Atorvastatin > than or = to 2.5/40 mg Ezetimibe + Simvastatin 10/80 mg Simvastatin 80mg Discharge Plan Admission Admit Date/Time: 11/06/24 02:56 Primary Reason for Your Visit: Gastrointestinal bleed. Attending Provider: Stevie Harrington Primary Care Provider: Mariela Olson Consulting Providers: Darrel Carpentre Instructions Additional Instructions / Restrictions: You had an ulceration at the anastamosis site of you prior partial colectomy that was the cause of your bleeding. Dr. Silvestre was able to place a clip to stopthe bleeding. No further colonoscopy is needed at this time. You saw Dr. Hernandez on October 31. If you are interested in pursuing chemotherapy for you cancer, please follow up with his office. If you are pursuing alternative therapies, you will need to find another provider to assist you. Discharge Orders/Prescriptions Prescriptions: New simethicone 80 mg Tablet,Chewable 80 mg PO PCHS Qty: 0 0RF Continued metoprolol tartrate 50 mg tablet 25 mg PO QDAY amlodipine 5 mg tablet 5 mg PO DAILY ferrous sulfate [Iron (ferrous sulfate)] 325 mg (65 mg iron) tablet 325 mg PO DAILY 30 Days Qty: 60 5RF clonidine HCl 0.1 mg tablet 0.1 mg PO DAILY PRN (Reason: hbp) Patient Comments: pt states he only takes if bp is over 200+ oxycodone 5 mg tablet 5 mg PO Q6H PRN (Reason: pain) 7 Days Qty: 28 0RF Referrals / Follow Up: Mariela Olson NP-C [Primary Care Provider] - Within 2 Weeks Disposition Disposition (needs filled in before D/C Order can be placed): Home, Self Care Charges/Coding Visit Charges Inpatient E&M: 01997 Disch Hosp >30min 11/07/24 1707 <Electronically signed by Stevie Harrington DO> Cosigner Signature (if applicable): CC: MARYAM Olson; Dr. Stevie Harrington DO~ Signed [facility] Work Phone: Evaluation noteNo assessment information available [facility] Work Phone: Evaluation note* Diagnosis Onset Date Resolution Status Acute alteration in mental status acute Elevated troponin acute Chronic hypertension chronic [facility] Work Phone: Evaluation note* Diagnosis Onset Date Resolution Status Elevated troponin acute Chronic hypertension chronic Hypertensive emergency witho ut congestive heart failure resolved [facility] Work Phone: Evaluation note* Type Assessment Date No Information [facility] Work Phone: History and physical note* Clinical Note Date No Information [facility] Work Phone: Hospital Discharge instructions Additional Instructions Thank you for trusting us with your care today! Your labs images are consistent with likely metastatic cancer. You will need to follow-up with oncology to improve if the lesions/abnormalities we found in your CT scan are related to a recurrence of your cancer Please take Tylenol (2 pills, 650 mg), ibuprofen (2 pills, 400 mg) every 6 hours as needed for pain and fever control. If the above does not control your pain please take oxycodone for breakthrough pain. If you begin taking oxycodone it can cause significant constipation so please begin a bowel regimen which will include obco-dfa-gfjhyvf medicine such as senna, Colace and MiraLAX. Please return to the emergency department if your symptoms change or worsen. 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 Advance Directive(s) 07/18/2019 4:40 PM Advance Directive(s) 07/12/2019 2:31 PM Advance Directive(s) 05/14/2019 8:30 AM Advance Directive Response Recorded Date/ Time Advance Directives No October 31 11:26am Living Will Yes March 06, 2018 2:30pm Power of Cleaner And Presser No March 06 2:30pm Advance Directive Response Recorded Date/ Time Advance Directives No October 31 10:26am Living Will Yes August 15 6:13pm Power of Cleaner And Presser Yes August 15, 2023 6:13pm Name of Medical Power of Cleaner And Presser [place] August 15, 2023 6:13pm Advance Directive Response Recorded Date/ Time Name of Medical Power of Cleaner And Presser [place] August 15, 2023 11:26pm Advance Directives No October 31 11:26am Living Will No December 11, 2023 2 :44am Power of Cleaner And Presser No December 11, 2023 2:44am Directive Yes / No Effective Date File Name No Information Advance Directive Response Recorded Date/ Time Living Will Yes April 12, 2024 2:59am Do you have a Healthcare Power of Cleaner And Presser? Yes April 12, 2024 2:59am Living Will Yes April 27, 2024 2:58pm Do you have a Healthcare Power of Cleaner And Presser? Yes April 27, 2024 2:58pm Living Will Yes October 24, 2024 6:01pm Do you have a Healthcare Power of Cleaner And Presser? Yes October 24, 2024 6:01pm Name of Medical Power of Cleaner And Presser October 24, 2024 6:01pm Advance Directives No October 31 11:26am Advance Directive Response Recorded Date/ Time Living Will Yes April 12, 2024 2:59am Do you have a Healthcare Power of Cleaner And Presser? Yes April 12, 2024 2:59am Living Will Yes April 27, 2024 2:58pm Do you have a Healthcare Power of Cleaner And Presser? Yes April 27, 2024 2:58pm Living Will Yes October 24, 2024 6:01pm Do you have a Healthcare Power of Cleaner And Presser? Yes October 24, 2024 6:01pm Name of Medical Power of Cleaner And Presser October 24, 2024 6:01pm Living Will No November 05, 2024 10:42pm Do you have a Healthcare Power of Cleaner And Presser? No November 05, 2024 10:42pm Advance Directives No October 31 11:26am Advance Directive Response Recorded Date/ Time Living Will Yes April 12, 2024 2:59am Do you have a Healthcare Power of Cleaner And Presser? Yes April 12, 2024 2:59am Living Will Yes April 27, 2024 2:58pm Do you have a Healthcare Power of Cleaner And Presser? Yes April 27, 2024 2:58pm Living Will Yes October 24, 2024 6:01pm Do you have a Healthcare Power of Cleaner And Presser? Yes October 24, 2024 6:01pm Name of Medical Power of Cleaner And Presser October 24, 2024 6:01pm Living Will No November 06, 2024 3:38am Do you have a Healthcare Power of Cleaner And Presser? No November 06, 2024 3:38am Advance Directives No October 31 11:26am Advance Directive Response Recorded Date/ Time Living Will Yes April 12, 2024 2:59am Do you have a Healthcare Power of Cleaner And Presser? Yes April 12, 2024 2:59am Living Will Yes April 27, 2024 2:58pm Do you have a Healthcare Power of Cleaner And Presser? Yes April 27, 2024 2:58pm Living Will No November 18, 2024 10:49am Do you have a Healthcare Power of Cleaner And Presser? No November 18, 2024 10:49am Living Will Yes October 24, 2024 6:01pm Do you have a Healthcare Power of Cleaner And Presser? Yes October 24, 2024 6:01pm Name of Medical Power of Cleaner And Presser October 24, 2024 6:01pm Living Will No November 06, 2024 3:38am Do you have a Healthcare Power of Cleaner And Presser? No November 06, 2024 3:38am Advance Directives No October 31 11:26am Advance Directive Response Recorded Date/ Time Living Will Yes April 12, 2024 2:59am Do you have a Healthcare Power of Cleaner And Presser? Yes April 12, 2024 2:59am Living Will Yes April 27, 2024 2:58pm Do you have a Healthcare Power of Cleaner And Presser? Yes April 27, 2024 2:58pm Living Will No November 18, 2024 3:46pm Do you have a Healthcare Power of Cleaner And Presser? No November 18, 2024 3:46pm Living Will Yes October 24, 2024 6:01pm Do you have a Healthcare Power of Cleaner And Presser? Yes October 24, 2024 6:01pm Name of Medical Power of Cleaner And Presser October 24, 2024 6:01pm Living Will No November 06, 2024 3:38am Do you have a Healthcare Power of Cleaner And Presser? No November 06, 2024 3:38am Advance Directives No October 31 11:26am Advance Directive Response Recorded Date/ Time Living Will Yes April 12, 2024 2:59am Do you have a Healthcare Power of Cleaner And Presser? Yes April 12, 2024 2:59am Living Will Yes April 27, 2024 2:58pm Do you have a Healthcare Power of Cleaner And Presser? Yes April 27, 2024 2:58pm Living Will No November 18, 2024 3:46pm Do you have a Healthcare Power of Cleaner And Presser? No November 18, 2024 3:46pm Living Will Yes October 24, 2024 6:01pm Do you have a Healthcare Power of Cleaner And Presser? Yes October 24, 2024 6:01pm Name of Medical Power of Cleaner And Presser October 24, 2024 6:01pm Living Will No November 06, 2024 3:38am Do you have a Healthcare Power of Cleaner And Presser? No November 06, 2024 3:38am Living Will No January 14, 2025 9:01am Do you have a Healthcare Power of Cleaner And Presser? No January 14, 2025 9:01am Advance Directives No January 14 9:01am Family History No Family History Records Found Relationship Condition Age at Onset Recorded Date/T ben Unknown Family History?Unknown Unknown October 31, 2014 12:03pm Family History?Unknown Unknown November 16, 2016 8:01am Relationship Condition Age at Onset Recorded Date/T ben Unknown Family History?Unknown Unknown October 31, 2014 11:03am Family History?Unknown Unknown November 16, 2016 7:01am Family Member Type Diagnosis Age At Onset Problem No family history of Cancer, unknown Problem No family history of Retinal disease Problem No family history of Glaucom a Problem No family history of Macular degeneration Problem No family history of Hyperte nsion Problem No family history of Diabete s mellitus Relationship Condition Age at Onset Recorded Date/T ben father Arthritis Unknown Alcohol abuse Unknown mother Alcohol abuse Unknown Disorder of liver Unknown Chief Complaint and Reason for Visit Chief Complaint ALTERED MENTAL STATU S Reason for Visit Acute alteration in mental status Elevated troponin Chronic hypertension Chief Complaint ALTERED MENTAL STATU S Dizziness ELEVATED TROP ALTERED MENTAL STATUS Dizziness vision changes Reason for Visit Elevated troponin Chronic hypertension Hypertensive emergency without congestive heart failure Chief Complaint Admit Date F/U REVIEW PATH July 04, 2024 2 :12pm 2WKS CHEMO ED July 18, 2024 8:52am 3WKS NO LABS August 08, 2024 9: 51am 6 M FU October 17, 2024 2:0 4pm INT ORDER October 17, 2024 3:1 5pm MED ONC October 24, 2024 12: 58pm COLON CA October 24, 2024 1:4 6pm r flank pain October 24, 2024 5:3 5pm Reason for Visit Admit Date 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-abdom inal lymph node July 04, 2024 2:12pm Encounter for education July 18, 2 024 8:52am 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-abdom inal lymph node July 18, 2024 8:52am 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-abdom inal lymph node August 08, 2024 9:51am RLQ abdominal pain October 17, 2024 2:0 4pm Aortic stenosis October 17, 2024 2:0 4pm Benign essential hypertension September 2:04pm Hx of CABG October 17, 2024 2:0 4pm Chief Complaint Admit Date 2WKS CHEMO ED July 18, 2024 8:52am 3WKS NO LABS August 08, 2024 9: 51am 6 M FU October 17, 2024 2:0 4pm INT ORDER October 17, 2024 3:1 5pm MED ONC October 24, 2024 12: 58pm COLON CA October 24, 2024 1:4 6pm r flank pain October 24, 2024 5:3 5pm ]12WKS LABS PRIOR REVIEW CT October 31, 2 025 10:52am LGIB WITH BRBPR; RECURRENT November 06 2:56am Reason for Visit Admit Date Encounter for education July 18, 2 024 8:52am 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-abdom inal lymph node July 18, 2024 8:52am 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-abdom inal lymph node August 08, 2024 9:51am RLQ abdominal pain October 17, 2024 2:0 4pm Aortic stenosis October 17, 2024 2:0 4pm Benign essential hypertension September 2:04pm Hx of CABG October 17, 2024 2:0 4pm 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-abdom inal lymph node October 31, 2024 10:52am Anemia November 06, 2024 2:56 am Colon cancer November 06, 2024 2:56 am GI (gastrointestinal bleed) November 06, 025 2:56am Mediastinal lymphadenopathy November 06 025 2:56am RLQ abdominal pain November 06, 2024 2:56 am Benign essential hypertension November 06, 2024 2:56am 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-abdom inal lymph node November 06, 2024 2:56am Chief Complaint Admit Date 2WKS CHEMO ED July 18, 2024 8:52am 3WKS NO LABS August 08, 2024 9: 51am 6 M FU October 17, 2024 2:0 4pm INT ORDER October 17, 2024 3:1 5pm MED ONC October 24, 2024 12: 58pm COLON CA October 24, 2024 1:4 6pm r flank pain October 24, 2024 5:3 5pm ]12WKS LABS PRIOR REVIEW CT October 31 025 10:52am LGIB WITH BRBPR; RECURRENT November 06 2:56am LGIB WITH BRBPR; RECURRENT November 06 6:54pm LGIB WITH BRBPR; RECURRENT November 07 7:27am Reason for Visit Admit Date Encounter for education July 18, 2 024 8:52am 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-abdom inal lymph node July 18, 2024 8:52am 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-abdom inal lymph node August 08, 2024 9:51am RLQ abdominal pain October 17, 2024 2:0 4pm Aortic stenosis October 17, 2024 2:0 4pm Benign essential hypertension September 2:04pm Hx of CABG October 17, 2024 2:0 4pm 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-abdom inal lymph node October 31, 2024 10:52am Abdominal pain November 06, 2024 2:56 am Anemia November 06, 2024 2:56 am GI (gastrointestinal bleed) November 06 025 2:56am Hyponatremia November 06, 2024 2:56 am Mediastinal lymphadenopathy November 06 2 025 2:56am Medical non-compliance November 06, 2024 2 :56am Uncontrolled hypertension November 06 2:56am 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-abdom inal lymph node November 06, 2024 2:56am Chief Complaint Admit Date 3WKS NO LABS August 08, 2024 9: 51am 6 M FU October 17, 2024 2:0 4pm INT ORDER October 17, 2024 3:1 5pm MED ONC October 24, 2024 12: 58pm COLON CA October 24, 2024 1:4 6pm r flank pain October 24, 2024 5:3 5pm ]12WKS LABS PRIOR REVIEW CT October 31 025 10:52am LGIB WITH BRBPR; RECURRENT November 06 2:56am LGIB WITH BRBPR; RECURRENT November 06 6:54pm AM EKG November 07, 2024 5:53 am LGIB WITH BRBPR; RECURRENT November 07 7:27am GI BLEED November 18, 2024 12: 59pm Reason for Visit Admit Date 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-abdom inal lymph node August 08, 2024 9:51am RLQ abdominal pain October 17, 2024 2:0 4pm Aortic stenosis October 17, 2024 2:0 4pm Benign essential hypertension September 2:04pm Hx of CABG October 17, 2024 2:0 4pm 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-abdom inal lymph node October 31, 2024 10:52am Medical non-compliance November 06, 2024 2 :56am Abdominal pain November 06, 2024 2:56 am Anemia November 06, 2024 2:56 am GI (gastrointestinal bleed) November 06, 025 2:56am Hyponatremia November 06, 2024 2:56 am Uncontrolled hypertension November 06 2:56am 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-abdom inal lymph node November 06, 2024 2:56am Mediastinal lymphadenopathy November 06 025 2:56am GI bleed November 18, 2024 12: 59pm Chief Complaint Admit Date 3WKS NO LABS August 08, 2024 9: 51am 6 M FU October 17, 2024 2:0 4pm INT ORDER October 17, 2024 3:1 5pm MED ONC October 24, 2024 12: 58pm COLON CA October 24, 2024 1:4 6pm r flank pain October 24, 2024 5:3 5pm ]12WKS LABS PRIOR REVIEW CT October 31, 2 025 10:52am LGIB WITH BRBPR; RECURRENT November 06 2:56am LGIB WITH BRBPR; RECURRENT November 06 6:54pm AM EKG November 07, 2024 5:53 am LGIB WITH BRBPR; RECURRENT November 07 7:27am GI BLEED November 18, 2024 12: 59pm GI BLEED November 18, 2024 1:3 5pm GI BLEED November 19, 2024 12: 56pm GI BLEED November 19, 2024 6:1 6pm Reason for Visit Admit Date 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-abdom inal lymph node August 08, 2024 9:51am RLQ abdominal pain October 17, 2024 2:0 4pm Aortic stenosis October 17, 2024 2:0 4pm Benign essential hypertension September 2:04pm Hx of CABG October 17, 2024 2:0 4pm 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-abdom inal lymph node October 31, 2024 10:52am Medical non-compliance November 06, 2024 2 :56am Abdominal pain November 06, 2024 2:56 am Anemia November 06, 2024 2:56 am GI (gastrointestinal bleed) November 06 025 2:56am Hyponatremia November 06, 2024 2:56 am Uncontrolled hypertension November 06 2:56am 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-abdom inal lymph node November 06, 2024 2:56am Mediastinal lymphadenopathy November 06 025 2:56am GI (gastrointestinal bleed) November 18, 2024 12:59pm Rectal bleeding November 18, 2024 12: 59pm Chief Complaint Admit Date 3WKS NO LABS August 08, 2024 9: 51am 6 M FU October 17, 2024 2:0 4pm INT ORDER October 17, 2024 3:1 5pm MED ONC October 24, 2024 12: 58pm COLON CA October 24, 2024 1:4 6pm r flank pain October 24, 2024 5:3 5pm ]12WKS LABS PRIOR REVIEW CT October 31, 2 025 10:52am LGIB WITH BRBPR; RECURRENT November 06 2:56am LGIB WITH BRBPR; RECURRENT November 06 6:54pm AM EKG November 07, 2024 5:53 am LGIB WITH BRBPR; RECURRENT November 07 7:27am GI BLEED November 18, 2024 12: 59pm GI BLEED November 18, 2024 1:3 5pm GI BLEED November 19, 2024 12: 56pm GI BLEED November 19, 2024 6:1 6pm GI BLEED November 20, 2024 1:2 2pm F/U FROM HOSP-[facility] TO DR Olivares October 10:59am RE-EVALUATE November 28, 2024 12: 43pm COLON CA November 30, 2024 2:21pm Hospital FU December 04, 2024 11:24a m Malignant neoplasm of ascending colon Ma y 2024 7:38am Reason for Visit Admit Date 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-abdom inal lymph node August 08, 2024 9:51am RLQ abdominal pain October 17, 2024 2:0 4pm Aortic stenosis October 17, 2024 2:0 4pm Benign essential hypertension September 2:04pm Hx of CABG October 17, 2024 2:0 4pm 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-abdom inal lymph node October 31, 2024 10:52am Medical non-compliance November 06, 2024 2 :56am Abdominal pain November 06, 2024 2:56 am Anemia November 06, 2024 2:56 am GI (gastrointestinal bleed) November 06, 025 2:56am Hyponatremia November 06, 2024 2:56 am Uncontrolled hypertension November 06 2:56am 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-abdom inal lymph node November 06, 2024 2:56am Mediastinal lymphadenopathy November 06, 025 2:56am GI bleed November 18, 2024 12: 59pm Rectal bleeding November 18, 2024 12: 59pm Anemia November 28, 2024 10: 59am Anemia due to blood loss November 28 10:59am Colon cancer November 28, 2024 10: 59am Metastasis to liver November 28, 2024 10: 59am Regional lymph node metastasis present A pril 2024 10:59am Elevated blood pressure read ing with diagnosis of hypertension December 04, 2024 11:24am Metastatic colon cancer to liver November 11:24am Anemia due to blood loss December 04, 2024 1 1:24am Metastasis to liver December 04, 2024 11:24a m Regional lymph node metastasis present M ay 2024 11:24am Chief Complaint Admit Date 6 M FU October 17, 2024 2:0 4pm INT ORDER October 17, 2024 3:1 5pm MED ONC October 24, 2024 12: 58pm COLON CA October 24, 2024 1:4 6pm r flank pain October 24, 2024 5:3 5pm ]12WKS LABS PRIOR REVIEW CT October 31 10:52am LGIB WITH BRBPR; RECURRENT November 06 2:56am LGIB WITH BRBPR; RECURRENT November 06 6:54pm AM EKG November 07, 2024 5:53 am LGIB WITH BRBPR; RECURRENT November 07 7:27am GI BLEED November 18, 2024 12: 59pm GI BLEED November 18, 2024 1:3 5pm GI BLEED November 19, 2024 12: 56pm GI BLEED November 19, 2024 6:1 6pm GI BLEED November 20, 2024 1:2 2pm F/U FROM H[facility] TO DR Olivares October 10:59am RE-EVALUATE November 28, 2024 12: 43pm COLON CA November 30, 2024 2:21pm Hospital December 04, 2024 11:24a m Malignant neoplasm of ascending colon Ma y 2024 7:38am Reason for Visit Admit Date RLQ abdominal pain October 17, 2024 2:0 4pm Aortic stenosis October 17, 2024 2:0 4pm Benign essential hypertension September 2:04pm Hx of CABG October 17, 2024 2:0 4pm 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-abdom inal lymph node October 31, 2024 10:52am Medical non-compliance November 06, 2024 2 :56am Abdominal pain November 06, 2024 2:56 am Anemia November 06, 2024 2:56 am GI (gastrointestinal bleed) November 06 025 2:56am Hyponatremia November 06, 2024 2:56 am Uncontrolled hypertension November 06 2:56am 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-abdom inal lymph node November 06, 2024 2:56am Mediastinal lymphadenopathy November 06, 025 2:56am GI bleed November 18, 2024 12: 59pm Rectal bleeding November 18, 2024 12: 59pm Anemia November 28, 2024 10: 59am Anemia due to blood loss November 28 10:59am Colon cancer November 28, 2024 10: 59am Metastasis to liver November 28, 2024 10: 59am Regional lymph node metastasis present A pril 2024 10:59am Elevated blood pressure read ing with diagnosis of hypertension December 04, 2024 11:24am Metastatic colon cancer to liver November 11:24am Anemia due to blood loss December 04, 2024 1 1:24am Metastasis to liver December 04, 2024 11:24a m Regional lymph node metastasis present M ay 2024 11:24am Chief Complaint Admit Date 6 M FU October 17, 2024 2:0 4pm INT ORDER October 17, 2024 3:1 5pm MED ONC October 24, 2024 12: 58pm COLON CA October 24, 2024 1:4 6pm r flank pain October 24, 2024 5:3 5pm ]12WKS LABS PRIOR REVIEW CT October 31, 10:52am LGIB WITH BRBPR; RECURRENT November 06 2:56am LGIB WITH BRBPR; RECURRENT November 06 6:54pm AM EKG November 07, 2024 5:53 am LGIB WITH BRBPR; RECURRENT November 07 7:27am GI BLEED November 18, 2024 12: 59pm GI BLEED November 18, 2024 1:3 5pm GI BLEED November 19, 2024 12: 56pm GI BLEED November 19, 2024 6:1 6pm GI BLEED November 20, 2024 1:2 2pm F/U FROM HOSP-[facility] TO DR Olivares October 10:59am RE-EVALUATE November 28, 2024 12: 43pm COLON CA November 30, 2024 2:21pm Hospital FU December 04, 2024 11:24a m Malignant neoplasm of ascending colon Ma y 2024 7:38am 2 ORDERING DRS December 14, 2024 3:07p m Chief Complaint Admit Date 6 M FU October 17, 2024 2:0 4pm INT ORDER October 17, 2024 3:1 5pm MED ONC October 24, 2024 12: 58pm COLON CA October 24, 2024 1:4 6pm r flank pain October 24, 2024 5:3 5pm ]12WKS LABS PRIOR REVIEW CT October 31, 025 10:52am LGIB WITH BRBPR; RECURRENT November 06 2:56am LGIB WITH BRBPR; RECURRENT November 06 6:54pm AM EKG November 07, 2024 5:53 am LGIB WITH BRBPR; RECURRENT November 07 7:27am GI BLEED November 18, 2024 12: 59pm GI BLEED November 18, 2024 1:3 5pm GI BLEED November 19, 2024 12: 56pm GI BLEED November 19, 2024 6:1 6pm GI BLEED November 20, 2024 1:2 2pm F/U FROM [facility] TO DR Olivares October 10:59am RE-EVALUATE November 28, 2024 12: 43pm COLON CA November 30, 2024 2:21pm Hospital FU December 04, 2024 11:24a m Malignant neoplasm of ascending colon Ma y 2024 7:38am 2 ORDERING DRS December 14, 2024 3:07p m REVIEW PATH January 09, 2025 3:16 pm Chief Complaint Admit Date 6 M FU October 17, 2024 2:0 4pm INT ORDER October 17, 2024 3:1 5pm MED ONC October 24, 2024 12: 58pm COLON CA October 24, 2024 1:4 6pm r flank pain October 24, 2024 5:3 5pm ]12WKS LABS PRIOR REVIEW CT October 31, 2 025 10:52am LGIB WITH BRBPR; RECURRENT November 06 2:56am LGIB WITH BRBPR; RECURRENT November 06 6:54pm AM EKG November 07, 2024 5:53 am LGIB WITH BRBPR; RECURRENT November 07 7:27am GI BLEED November 18, 2024 12: 59pm GI BLEED November 18, 2024 1:3 5pm GI BLEED November 19, 2024 12: 56pm GI BLEED November 19, 2024 6:1 6pm GI BLEED November 20, 2024 1:2 2pm F/U FROM HOSP-[facility] TO DR Olivares October 10:59am RE-EVALUATE November 28, 2024 12: 43pm COLON CA November 30, 2024 2:21pm Hospital FU December 04, 2024 11:24a m Malignant neoplasm of ascending colon Ma y 2024 7:38am 2 ORDERING DRS December 14, 2024 3:07p m Nonrheumatic aortic (valve) stenosis Dec 8:08am REVIEW PATH January 09, 2025 3:16 pm Nonrheumatic aortic (valve) stenosis Elton e 2024 8:27am Reason for Visit Admit Date RLQ abdominal pain October 17, 2024 2:0 4pm Aortic stenosis October 17, 2024 2:0 4pm Benign essential hypertension September 2:04pm Hx of CABG October 17, 2024 2:0 4pm 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-abdom inal lymph node October 31, 2024 10:52am Medical non-compliance November 06, 2024 2 :56am Abdominal pain November 06, 2024 2:56 am Anemia November 06, 2024 2:56 am GI (gastrointestinal bleed) November 06, 2 025 2:56am Hyponatremia November 06, 2024 2:56 am Uncontrolled hypertension November 06 2:56am 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-abdom inal lymph node November 06, 2024 2:56am Mediastinal lymphadenopathy November 06, 2 025 2:56am GI bleed November 18, 2024 12: 59pm Rectal bleeding November 18, 2024 12: 59pm Anemia November 28, 2024 10: 59am Anemia due to blood loss November 28 10:59am Colon cancer November 28, 2024 10: 59am Metastasis to liver November 28, 2024 10: 59am Regional lymph node metastasis present A pril 2024 10:59am Elevated blood pressure read ing with diagnosis of hypertension December 04, 2024 11:24am Metastatic colon cancer to liver November 11:24am Anemia due to blood loss December 04, 2024 1 1:24am Metastasis to liver December 04, 2024 11:24a m Regional lymph node metastasis present M ay 2024 11:24am Anemia January 09, 2025 3:16 pm Anemia due to blood loss January 09, 2025 3:16pm Colon cancer January 09, 2025 3:16 pm Metastasis to liver January 09, 2025 3:16 pm Regional lymph node metastasis present J une 2024 3:16pm Summary Purpose Additional Source Comments Source Comments (unrecognize d section and content) In the event this informatio n is protected by the Federal Confidentiality of Alcohol and Drug Abuse Patient Records regulations: The Federal rules restrict any use of the information to criminally investigate or prosecute any alcohol or drug abuse patient.[facility] the event this information is protected by the Federal Confidentiality of Alcohol and Drug Abuse Patient Records regulations: The Federal rules restrict any use of the information to criminally investigate or prosecute any alcohol or drug abuse patient.[facility] Reason for Visit (unrecogniz ed section and content) Reason Comments Patient Question Care Teams (unrecognized sec tion and content) Continuous Absorption Process Operator Relationship Specialty Start Date End Date Neville Islas DO [address] [place] [address] PCP - General Family Practice 05/07/19 Team Status: Active Member Role Status Dates Dr. Neville Islas DO Family Provider Active Mariela Shahram , CITY ASSESSOR-C Primary Care Provider Active Team Status: Inactive Member Role Status Dates Mariela Olson NP-C Primary Care Provide r, Attending Provider, Referring Provider Active Team Status: Active Member Role Status Dates Dr. Neville Islas , DO Family Provider Active Dr. Neville Islas DO Primary Care Provider Active Team Status: Active Member Role Status Dates Dr. Neville Islas , DO Primary Care Provider Active Dr. Jerry Hightower DO Emergency Provider Active Dr. Darrel Carpenter DO Admit Provider, Attending Pr ovider Active Team Status: Active Member Role Status Dates Dr. Neville Islas , DO Primary Care Provider Active Dr. Jerry Hightower DO Emergency Provider Active Dr. Darrel Carpenter , DO Admit Provider , Attending Provider, Other Provider Active Team Status: Active Member Role Status Dates Dr. Neville Islas , DO Primary Care Provider Active Dr. Jerry Hightower DO Emergency Provider Active Dr. Darrel Carpenter DO Admit Provider, Other Provid er Active Dr. Lucy Polanco MD Other Provider Active Dr. Karli Cruz MD Attending Provider Active Team Status: Active Member Role Status Dates Dr. Neville Islas DO Primary Care Provider Active Dr. Stevie Umanzor MD Attending Provider Active Dr. Darrel Carpenter , Referring Provider Active Team Status: Active Member Role Status Dates Dr. Neville Islas , DO Primary Care Provider Active Dr. Jerry Hightower DO Emergency Provider Active Dr. Darrel Carpenter DO Admit Provider, Other Provid er Active Dr. Lucy Polanco MD Attending Provider, Other Provid er Active Team Status: Active Member Role Status Dates Dr. Neville Islas DO Primary Care Provider Active Dr. Adrian Flores MD Attending Provider Active Dr. Darrel Carpenter DO Referring Provider Active Team Status: Inactive Member Role Status Dates Dr. Neville Islas , DO Primary Care Provider, Attendin g Provider Active Team Status: Inactive Member Role Status Dates Dr. Neville Islas , DO Primary Care Provider Active Dr. Jerry Hightower DO Emergency Provider Active Dr. Darrel Carpenter DO Admit Provider, Other Provid er Active Dr. Lucy Polanco MD Attending Provider Active Team Status: Inactive Member Role Status Dates Dr. Neville Islas DO Primary Care Provider Active Dr. Stevie Vela , DO Emergency Provider Active Name Effective Dates (start - stop) Status Members No Information Team Status: Active Member Role Status Dates Mariela Olson , CITY ASSESSOR-C Primary Care Provider Active Team Status: Inactive Member Role Status Dates Mariela Olson , CITY ASSESSOR-C Primary Care Provider Active Start: July 04, 2024 End: July 04, 2024 Mariela Olson , CITY ASSESSOR-C Referring Provider Active St art: July 04, 2024 End: July 04, 2024 Dr. Papi Hernandez MD Attending Provider Active S tart: July 04, 2024 End: July 04, 2024 Team Status: Inactive Member Role Status Dates Mariela Olson , CITY ASSESSOR-C Primary Care Provider Active Start: July 18, 2024 End: July 18, 2024 Mariela Olson , CITY ASSESSOR-C Referring Provider Active St art: July 18, 2024 End: July 18, 2024 Selam Craig NP, CITY ASSESSOR-C Attending Provider Active Start: July 18, 2024 End: July 18, 2024 Team Status: Inactive Member Role Status Dates Marielabruce Olson , CITY ASSESSOR-C Primary Care Provider Active Start: August 08, 2024 End: August 08, 2024 Mariela Olson , CITY ASSESSOR-C Referring Provider Active St art: August 08, 2024 End: August 08, 2024 Dr. Papi Hernandez MD Attending Provider Active S tart: August 08, 2024 End: August 08, 2024 Team Status: Inactive Member Role Status Dates Mariela Shahram , CITY ASSESSOR-C Primary Care Provider Active Start: September 05, 2024 End: September 05, 2024 Mariela Olson , CITY ASSESSOR-C Attending Provider Active St art: September 05, 2024 End: September 05, 2024 Team Status: Inactive Member Role Status Dates Marielabruce Olson , CITY ASSESSOR-C Primary Care Provider Active Start: October 17, 2024 End: October 17, 2024 Mariela Olson , CITY ASSESSOR-C Referring Provider Active St art: October 17, 2024 End: October 17, 2024 Malinda Webster CITY ASSESSOR, CITY ASSESSOR-C Attending Provider Active S tart: October 17, 2024 End: October 17, 2024 Team Status: Active Member Role Status Dates Mariela Olson , CITY ASSESSOR-C Primary Care Provider Active Start: October 17, 2024 Malinda Webster CITY ASSESSOR, CITY ASSESSOR-C Attending Provider Active S tart: October 17, 2024 Malinda Webster CITY ASSESSOR, CITY ASSESSOR-C Referring Provider Active S tart: October 17, 2024 Team Status: Active Member Role Status Dates Mariela Olson , CITY ASSESSOR-C Primary Care Provider Active Start: October 24, 2024 Dr. Papi Hernandez MD Attending Provider Active S tart: October 24, 2024 Dr. Papi Hernandez MD Referring Provider Active S tart: October 24, 2024 Team Status: Inactive Member Role Status Dates Mariela Olson CITY ASSESSOR-C Primary Care Provider Active Start: October 24, 2024 End: October 24, 2024 Dr. Jerry Hightower DO Emergency Provider Active Start: October 24, 2024 End: October 24, 2024 Team Status: Inactive Member Role Status Dates Mariela Olson , CITY ASSESSOR-C Primary Care Provider Active Start: October 17, 2024 End: October 17, 2024 Malinda Webster CITY ASSESSOR, CITY ASSESSOR-C Attending Provider Active S tart: October 17, 2024 End: October 17, 2024 Malinda Webster CITY ASSESSOR, CITY ASSESSOR-C Referring Provider Active S tart: October 17, 2024 End: October 17, 2024 Team Status: Inactive Member Role Status Dates Mariela Olson , CITY ASSESSOR-C Primary Care Provider Active Start: October 24, 2024 End: October 24, 2024 Dr. Papi Hernandez MD Attending Provider Active S tart: October 24, 2024 End: October 24, 2024 Dr. Papi Hernandez MD Referring Provider Active S tart: October 24, 2024 End: October 24, 2024 Team Status: Inactive Member Role Status Dates Mariela Olson CITY ASSESSOR-C Primary Care Provider Active Start: October 24, 2024 End: October 24, 2024 Dr. Jerry Hightower DO Attending Provider Active Start: October 24, 2024 End: October 24, 2024 Dr. Jerry Hightower DO Emergency Provider Active Start: October 24, 2024 End: October 24, 2024 Team Status: Inactive Member Role Status Dates Mariela Olson , CITY ASSESSOR-C Primary Care Provider Active Start: October 31, 2024 End: October 31, 2024 Mariela Olson CITY ASSESSOR-C Referring Provider Active St art: October 31, 2024 End: October 31, 2024 Dr. Papi Hernandez MD Attending Provider Active S tart: October 31, 2024 End: October 31, 2024 Team Status: Active Member Role Status Dates Mariela Olson , CITY ASSESSOR-C Primary Care Provider Active Start: November 06, 2024 Dr. Harrison Linares , DO Emergency Provider Active Start: November 06, 2024 Dr. Darrel Carpenter , DO Admit Provider Active Start: November 06, 2024 Dr. Darrel Carpenter , DO Attending Provider Active Start: November 06, 2024 Team Status: Inactive Member Role Status Dates Mariela Olson , CITY ASSESSOR-C Primary Care Provider Active Start: November 06, 2024 End: November 07, 2024 Dr. Harrison Linares , DO Emergency Provider Active Start: November 06, 2024 End: November 07, 2024 Dr. Darrel Carpenter , DO Admit Provider Active Start: November 06, 2024 End: November 07, 2024 Dr. Darrel Carpenter , DO Other Provider Active Start: November 06, 2024 End: November 07, 2024 Dr. Stevie Harrington , DO Attending Provider Active Start: November 06, 2024 End: November 07, 2024 Dr. Stevie Harrington , DO Other Provider Active Star t: November 06, 2024 Team Status: Active Member Role Status Dates Mariela Olson , CITY ASSESSOR-C Primary Care Provider Active Start: November 06, 2024 Dr. Harrison Linares , DO Emergency Provider Active Start: November 06, 2024 Dr. Darrel Carpenter , DO Admit Provider Active Start: November 06, 2024 Dr. Darrel Carpenter , DO Other Provider Active Start: November 06, 2024 Dr. Stevie Harrington , DO Other Provider Active Star t: November 06, 2024 Dr. Ari Silvestre , DO Attending Provider Active Start: November 06, 2024 Team Status: Active Member Role Status Dates Mariela Olson , CITY ASSESSOR-C Primary Care Provider Active Start: November 07, 2024 Dr. Harrison Linares , DO Emergency Provider Active Start: November 07, 2024 Dr. Darrel Carpenter , DO Admit Provider Active Start: November 07, 2024 Dr. Darrel Carpenter , DO Other Provider Active Start: November 07, 2024 Dr. Stevie Harrington , DO Attending Provider Active Start: November 07, 2024 Dr. Stevie Harrington , DO Other Provider Active Star t: November 07, 2024 Team Status: Active Member Role Status Dates Mariela Olson , CITY ASSESSOR-C Primary Care Provider Active Start: November 06, 2024 Dr. Harrison Linares , DO Emergency Provider Active Start: November 06, 2024 Dr. Darrel Carpenter DO Admit Provider Active Start: November 06, 2024 Dr. Darrel Carpenter , DO Other Provider Active Start: November 06, 2024 Dr. Stevie Harrington DO Referring Provider Active Start: November 06, 2024 Dr. Stevie Harrington , Other Provider Active Star t: November 06, 2024 Dr. Ari Silvestre , Attending Provider Active Start: November 06, 2024 Team Status: Active Member Role Status Dates Mariela Olson CITY ASSESSOR-C Primary Care Provider Active Start: November 07, 2024 End: November 07, 2024 Dr. Adrian Flores MD Attending Provider Active S tart: November 07, 2024 End: November 07, 2024 Dr. Adrian Flores MD Referring Provider Active S tart: November 07, 2024 End: November 07, 2024 Team Status: Active Member Role Status Dates Mariela Olson CITY ASSESSOR-C Primary Care Provider Active Start: November 18, 2024 Dr. Lazaro Shrap MD Emergency Provider Active Sta rt: November 18, 2024 Dr. Kelvin Schrader MD Admit Provider Active Start: November 18, 2024 Dr. Kelvin Schrader MD Attending Provider Active Start: November 18, 2024 Dr. Kelvin Schrader MD Referring Provider Active Start: November 18, 2024 Team Status: Inactive Member Role Status Dates Mariela Olson , CITY ASSESSOR-C Primary Care Provider Active Start: November 18, 2024 End: November 20, 2024 Dr. Lazaro Sharp MD Emergency Provider Active Sta rt: November 18, 2024 End: November 20, 2024 Dr. Kelvin Schrader MD Admit Provider Active Start: November 18, 2024 End: November 20, 2024 Dr. Kelvin Schrader MD Referring Provider Active Start: November 18, 2024 End: November 20, 2024 Dr. Kelvin Schrader MD Other Provider Active Start: November 18, 2024 End: November 20, 2024 Dr. Neville Jang DO Attending Provider Active Start: November 18, 2024 End: November 20, 2024 Team Status: Active Member Role Status Dates Mariela Olson CITY ASSESSOR-C Primary Care Provider Active Start: November 18, 2024 Dr. Lazaro Sharp MD Emergency Provider Active Sta rt: November 18, 2024 Dr. Kelvin Schrader MD Admit Provider Active Start: November 18, 2024 Dr. Kelvin Schrader MD Attending Provider Active Start: November 18, 2024 Dr. Kelvin Schrader MD Referring Provider Active Start: November 18, 2024 Dr. Kelvin Schrader MD Other Provider Active Start: November 18, 2024 Team Status: Active Member Role Status Dates Mariela Olson CITY ASSESSOR-C Primary Care Provider Active Start: November 19, 2024 Dr. Lazaro Sharp MD Emergency Provider Active Sta rt: November 19, 2024 Dr. Kelvin Schrader MD Admit Provider Active Start: November 19, 2024 Dr. Kelvin Schrader MD Referring Provider Active Start: November 19, 2024 Dr. Kelvin Schrader MD Other Provider Active Start: November 19, 2024 Dr. Neville Jang DO Other Provider Active S tart: November 19, 2024 Dr. Ari Silvestre DO Attending Provider Active Start: November 19, 2024 Team Status: Active Member Role Status Dates Mariela Olson CITY ASSESSOR-C Primary Care Provider Active Start: November 19, 2024 Dr. Lazaro Sharp MD Emergency Provider Active Sta rt: November 19, 2024 Dr. Kelvin Schrader MD Admit Provider Active Start: November 19, 2024 Dr. Kelvin Schrader MD Referring Provider Active Start: November 19, 2024 Dr. Kelvin Schrader MD Other Provider Active Start: November 19, 2024 Dr. Neville Jang DO Attending Provider Active Start: November 19, 2024 Dr. Neville Jang DO Other Provider Active S tart: November 19, 2024 Team Status: Active Member Role Status Dates Mariela Olson CITY ASSESSOR-C Primary Care Provider Active Start: November 18, 2024 Dr. Lazaro Sharp MD Emergency Provider Active Sta rt: November 18, 2024 Dr. Kelvin Schrader MD Admit Provider Active Start: November 18, 2024 Dr. Kelvin Schrader MD Attending Provider Active Start: November 18, 2024 Dr. Kelvin Schrader MD Other Provider Active Start: November 18, 2024 Team Status: Active Member Role Status Dates Mariela Olson NP-C Primary Care Provider Active Start: November 19, 2024 Dr. Lazaro Sharp MD Emergency Provider Active Sta rt: November 19, 2024 Dr. Kelvin Schrader MD Admit Provider Active Start: November 19, 2024 Dr. Kelvin Schrader MD Other Provider Active Start: November 19, 2024 Dr. Neville Jang DO Attending Provider Active Start: November 19, 2024 Dr. Neville Jang DO Other Provider Active S tart: November 19, 2024 Team Status: Active Member Role Status Dates Mariela Olson NP-C Primary Care Provider Active Start: November 20, 2024 Dr. Lazaro Sharp MD Emergency Provider Active Sta rt: November 20, 2024 Dr. Kelvin Schrader MD Admit Provider Active Start: November 20, 2024 Dr. Kelvin Schrader MD Other Provider Active Start: November 20, 2024 Dr. Neville Jang DO Attending Provider Active Start: November 20, 2024 Dr. Neville Jang DO Other Provider Active S tart: November 20, 2024 Team Status: Inactive Member Role Status Dates Mariela Olson CITY ASSESSOR-C Primary Care Provider Active Start: November 28, 2024 End: November 28, 2024 Mariela Olson NP-Jenifer Referring Provider Active St art: November 28, 2024 End: November 28, 2024 Dr. Brenda Araujo MD Attending Provider Active Start: November 28, 2024 End: November 28, 2024 Team Status: Inactive Member Role Status Dates Mariela Olson CITY ASSESSOR-C Primary Care Provider Active Start: November 28, 2024 End: November 28, 2024 Malinda Webster NP, CITY ASSESSOR-C Attending Provider Active S tart: November 28, 2024 End: November 28, 2024 Malinda Webster CITY ASSESSOR, CITY ASSESSOR-C Referring Provider Active S tart: November 28, 2024 End: November 28, 2024 Team Status: Active Member Role Status Dates Marielabruce Olson , CITY ASSESSOR-C Primary Care Provider Active Start: November 28, 2024 Dr. Adrian Flores MD Attending Provider Active S tart: November 28, 2024 Team Status: Inactive Member Role Status Dates Mariela Shahram , CITY ASSESSOR-C Primary Care Provider Active Start: November 30, 2024 End: November 30, 2024 Dr. Brenda Araujo MD Attending Provider Active Start: November 30, 2024 End: November 30, 2024 Dr. Brenda Araujo MD Referring Provider Active Start: November 30, 2024 End: November 30, 2024 Team Status: Inactive Member Role Status Dates Marielabruce Olson , CITY ASSESSOR-C Primary Care Provider Active Start: December 04, 2024 End: December 04, 2024 Mariela Olson , CITY ASSESSOR-C Referring Provider Active St art: December 04, 2024 End: December 04, 2024 Dr. Ari Silvestre DO Attending Provider Active Start: December 04, 2024 End: December 04, 2024 Team Status: Active Member Role Status Dates Mariela Olson , CITY ASSESSOR-C Primary Care Provider Active Start: December 05, 2024 Dr. Brenda Araujo MD Attending Provider Active Start: December 05, 2024 Dr. Brenda Araujo MD Referring Provider Active Start: December 05, 2024 Team Status: Inactive Member Role Status Dates Mariela Olson , CITY ASSESSOR-C Primary Care Provider Active Start: December 05, 2024 End: December 05, 2024 Dr. Brenda Araujo MD Attending Provider Active Start: December 05, 2024 End: December 05, 2024 Dr. Brenda Araujo MD Referring Provider Active Start: December 05, 2024 End: December 05, 2024 Team Status: Inactive Member Role Status Dates Mariela Olson , CITY ASSESSOR-C Primary Care Provider Active Start: December 14, 2024 End: December 14, 2024 Malinda Webster CITY ASSESSOR, CITY ASSESSOR-C Attending Provider Active S tart: December 14, 2024 End: December 14, 2024 Dr. Brenda Araujo MD Referring Provider Active Start: December 14, 2024 End: December 14, 2024 Team Status: Inactive Member Role Status Dates MARYAM Guerra Primary Care Provider Active Start: January 09, 2025 End: January 09, 2025 MARYAM Guerra Referring Provider Active St art: January 09, 2025 End: January 09, 2025 Dr. Brenda Araujo MD Attending Provider Active Start: January 09, 2025 End: January 09, 2025 Continuous Absorption Process Operator Relationship Specialty Start Date End Date RoshanNeville DO [address] [place] [address] PCP - General Family Medicine 05/07/19 Team Status: Active Member Role Status Dates MARYAM Guerra Primary Care Provider Active Start: January 06, 2025 Dr. Adrian Flores MD Attending Provider Active S tart: January 06, 2025 Dr. Adrian lFores MD Referring Provider Active S tart: January 06, 2025 Dr. Adrian Flores MD Other Provider Active Start : January 06, 2025 Team Status: Inactive Member Role Status Dates MARYAM Guerra Primary Care Provider Active Start: January 14, 2025 End: January 14, 2025 Dr. Adrain Flores MD Attending Provider Active S tart: January 14, 2025 End: January 14, 2025 Dr. Adrian Flores MD Referring Provider Active S tart: January 14, 2025 End: January 14, 2025 Goals (unrecognized section and content) Health Concern Goal Type Priority Status No Information (unrecognized sect ion and content) No Status Records FoundNo Status Records FoundNo Status Records FoundNo Status Records Found INFORMATION SOURCE (unrecogn ized section and content) DATE CREATED AUTHOR 01/14/2025 [facility] DATE CREATED AUTHOR AUTHOR'S ORGANIZ ATION 01/14/2025 [facility] DATE CREATED AUTHOR AUTHOR'S ORGANIZ ATION 01/24/2025 [facility] DATE CREATED AUTHOR AUTHOR'S ORGANIZ ATION 02/07/2025 [facility] tem [facility] FOR RECORDS PERTAINING TO PATIENTS WHO ARE [...] BE BASED ON THE PRIMARY CLINICAL RECORDS. [facility] [employer] [facility]. provides no warranty or guarantee of the accuracy or completeness of information in this document.
--- OUTSIDE RECORDS SUMMARY | 2025-02-10 22:59 | XMS RPT_ITS | CCD ---
Author Organization [facility] Care Team Providers Care [employer]fu[employer] Operations Manager Name Role Phone Neville Islas DO Primary Care Provider Dr. Neville Islas Primary Care Provider [phone] Dr. Jerry Hightower Emergency Provider [phone] Dr. Darrel Carpenter Admit Provider Unavailabl e Dr. Darrel Carpenter Attending Provider Unavail able Dr. Darrel Carpenter Other Provider Unavailabl e Dr. Adrian Flores Attending Provider [phone] Darrel Carpenter Referring Provider Unavail able Dr. Stevie Umanzor Attending Provider Dr. Lucy Polanco Other Provider Dr. Karli Cruz Attending Provider Dr. Lucy Polanco Attending Provider Darrel Pringle MD Unavailable Unavailable Shahram SOLE CONDITIONER-C, Mariela Primary Care Provider Shahram SOLE CONDITIONER-C, Mariela Referring Provider Dr. Papi Hernandez MD Attending Provider Rafa SOLE CONDITIONER-C, Selam Attending Provider Shahram SOLE CONDITIONER-C, Mariela Attending Provider Darin SOLE CONDITIONER-C, Malinda Morillo Attending Provider Darin SOLE CONDITIONER-C, Malinda Morillo Referring Provider Dr. Papi Hernandez MD Referring Provider Dr. Jerry Hightower DO Emergency Provider Dr. Jerry Hightower DO Attending Provider Shahram SOLE CONDITIONER-C, [place] Primary Care Provider Shahram SOLE CONDITIONER-C, Mariela Referring Provider Dr. Papi Hernandez MD Attending Provider Dr. Harrison Linares DO Emergency Provider de Tommy , Dr. Rojo Admit Provider Unavail able de Tommy DO, Dr. Rojo Attending Provider Unav ailable de Tommy DO, Dr. Rojo Other Provider Unavail able Juany FARLEY, Dr. Hubbard Attending Provider Juayn FARLEY, Dr. Hubbard Other Provider Friend , Dr. Chapman Attending Provider Shahram SOLE CONDITIONER-C, [place] Primary Care Provider Shahram SOLE CONDITIONER-C, Mariela Referring Provider Juany FARLEY, Dr. Hubbard [...] Dr. Neville Jang DO Other Provider Shahram SOLE CONDITIONER-C, [place] Primary Care Provider Shahram SOLE CONDITIONER-C, Mariela Referring Provider Dr. Papi Hernandez MD Attending Provider Shahram SOLE CONDITIONER-C, Mariela Attending Provider Roof SOLE CONDITIONER-C, Malinda Morillo Attending Provider Roof SOLE CONDITIONER-C, Malinda Morillo Referring Provider Dr. Papi Hernandez [...] Dr. Brenda Araujo MD Referring Provider Shahram SOLE CONDITIONER-C, Mariela Primary Care Provider Shahram SOLE CONDITIONER-C, Mariela Referring Provider Dr. Papi Hernandez MD Attending Provider Gayle DAVIS, Dr. Gutierrez Attending Provider Gayle DAVIS, Dr. Gutierrez Referring Provider Shahram SOLE CONDITIONER-C, [place] Primary Care Provider Shahram SOLE CONDITIONER-C, [place] Referring Provider Mary DAVIS, Dr. Turpin Attending Provider [phone] Shahram SOLE CONDITIONER-C, [place] Primary Care Provider Neville Islas DO Primary Care Provider Darrel Pringle Attending Unavailable Julissa Yap Referring Unavailable Darrel Pringle Attending Unavailable Darrel Pringle Referring Unavailable Darrel Pringle Attending Unavailable Julissa Yap Referring Unavailable Darrel Pringle Attending Unavailable Julissa Yap Referring Unavailable Darrel Pringle Attending Unavailable Darrel Pringle Referring Unavailable Darrel Pringle Attending Unavailable Darrel Pringle Referring Unavailable Mark DAVIS, Dr. Campbell Other Provider [phone] Jerry Hightower Attending Unavailable Shahram, Mariela Primary Care Unavailable Shahram, Mariela Referring Unavailable Shahram, Mariela Attending Unavailable Shahram, [place] Primary Care Unavailable Shahram, [place] Primary Care Unavailable Darrel Carpenter Consulting Unavailable Darrel Carpenter Admitting Unavailable Stevie Harrington Attending Unavailable Darrel Carpenter Admitting Unavailable Darrel Carpenter Consulting Unavailable Shahram, Mariela Primary Care Unavailable Stevie Harrington Attending Unavailable Santana Francois Consulting Unavailable Shahram, Mariela Referring Unavailable Shahram, [place] Primary Care Unavailable Papi Hernandez Attending Unavailable Shahram, Mariela Referring Unavailable Shahram, [place] Primary Care Unavailable Papi Hernandez Attending Unavailable Du Thomas Attending Unavailable Shahram, [place] Primary Care Unavailable Du Thomas Referring Unavailable Du Thomas Admitting Unavailable Keo Burgos Consulting Unavailable Du Thomas Consulting Unavailable Shahram, Mariela Referring Unavailable Shahram, [place] Primary Care Unavailable Selam Craig NP Attending Unavailable Roshan, Neville Primary Care Unavailable Neville Islas Attending Unavailable Roshan, Neville Referring Unavailable Shahram, Mariela Primary Care Unavailable Roof SOLE CONDITIONER, Malinda H Referring Unavailable Roof SOLE CONDITIONER, Malinda H Attending Unavailable Roof SOLE CONDITIONER, Malinda H Attending Unavailable Roof SOLE CONDITIONER, Malinda H Referring Unavailable Shahram, Mariela Primary Care Unavailable Shahram, Mariela Primary Care Unavailable Papi Hernandez Attending Unavailable Praeve, Papi Referring Unavailable Isckarus, Mansour Referring Unavailable Isckarus, Mansour Attending Unavailable Shahram, Mariela Primary Care Unavailable Isckarus, Mansour Referring Unavailable Isckarus, Mansour Attending Unavailable Shahram, Mariela Primary Care Unavailable Mark, Maud Attending Unavailable Mark, Adrian Referring Unavailable Shahram, Mariela Primary Care Unavailable Shahram, Mariela Attending Unavailable Shahram, Mariela Referring Unavailable Shahram, Mariela Primary Care Unavailable Mark, Maud Attending Unavailable Mark, Maud Referring Unavailable Shahram, Mariela Primary Care Unavailable Mark, Maud Attending Unavailable Shahram, Mariela Primary Care Unavailable [...] Harrington Attending Unavailable Santana Francois Consulting Unavailable Juayn, Stevie Consulting Unavailable Du Thomas Attending Unavailable Jopperi, Stevie Referring Unavailable Friend, Ari Attending Unavailable Lorraine Melendez Attending Unavailable Du Thomas Attending Unavailable Shahram, Mariela Primary Care Unavailable BorDu horowitz Consulting Unavailable Brown, Sunny Referring Unavailable Brown, Sunny Consulting Unavailable Shahram, Mariela Primary Care Unavailable Brown, Sunny Referring Unavailable Brown, Sunny Attending Unavailable Brown, Sunny Consulting Unavailable Mark, Adrian Consulting Unavailable Mark Adrian Attending Unavailable Mark, Maud Referring Unavailable Shahram, Mariela Primary Care Unavailable Darrel Carpenter Attending Unavailable Kelvin Schrader Referring Unavailable Kelvin Schrader Admitting Unavailable Neville Jang Attending Unavailable Kelvin Schrader Consulting Unavailable Shahram, Mariela Primary Care Unavailable Neville Jang Consulting Unavailable Lucy Polanco Attending Unavailable Lucy Polanoc Admitting Unavailable Lucy Polanco Consulting Unavailable Shahram, [...] Unavailable Shahram, Mariela Primary Care Unavailable Darin SOLE CONDITIONER, Malinda Morillo Attending Unavailable Shahram, Mariela Referring [...] Unavailable Shahram, Mariela Primary Care Unavailable Roof SOLE CONDITIONER, Malinda Morillo Attending Unavailable Brenda Araujo Referring Unavailable Shahram, Mariela Primary Care Unavailable Shahram, Mariela Primary Care Unavailable Jerry Hightower Attending Unavailable Du Thomas Attending Unavailable Shahram, Mariela Referring Unavailable Shahram, Mariela Primary Care Unavailable Sunny Mancia Consulting Unavailable Allergies Allergy Classification Reported Allergen(s) Allergy Type Date of Onset Reaction(s) Facility (3 sources) fentaNYL Drug Allergy 5 Low blood pressure [facility] (1 source) cloNIDine Drug Allergy 4 [facility] Repository (1 source) fentaNYL Drug Allergy 5 [facility] Repository (1 source) Wheat preparation Drug Allergy 4 [facility] Repository Medications Current Medications Medication Drug Class(es) [...] 04-23-2024 End: 04-25-2024 take 1 capsule by [facility] twice daily at mealtime potassium chloride ER [...] Coronary atherosclerosis; Translations: [Atherosclerotic heart disease of [place] coronary artery without angina pectoris] Onset: 019 [...] artery of lower limb; Translations: [Atherosclerosis of [place] arteries of extremities with intermittent claudication, bilateral [...] with medicare part A. Instructed will have escrow secretary arrange for financial counseling/assistance with [facility] prior to any appts/tests/procedures. Routed to Clau Wesley to arrange and call patient back [facility] 01-31-2025 36 Left message for pat ient to call office back to schedule CT scan on 02/19 [facility] 01-29-2025 36 Patient scheduled in valve clinic on 02/19 for aortic stenosis, cath and echo completed by Dr. Flores's office. BMP completed 01/08/25 in media. 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 Will call patient to schedule same day as OV. Normal [facility] 01-28-2025 36 Chart made and SOLE CONDITIONER ondina ckmichelle mailed [facility] 01-22-2025 36 VC appt made for 01/30 09/25 I need to make chart and mail SOLE CONDITIONER packet [facility] Oncology Visit Reporton 12-30 Oncology Visit Report Normal [facility] Absolute lymphocyte countOrd ered By: Malinda Webster on 01-08-2025 Lymphocytes Auto (Unsp spec) [#/Vol] 0.70 10*3/uL Low 0.83-4.51 [facility] Anion gap in Serum or Plasma Ordered By: Malinda Webster on 01-08-2025 Anion gap [Moles/Vol] 12 mmol/L - [facility] Automated lymphocyte count a s percentage of total leukocytesOrdered By: Malinda Darin on 01-08-2025 Lymphocytes/100 WBC Auto (Unsp spec) 12.0 % Low 19-41 [facility] BUN/creatinine ratioOrdered By: Malinda Webster on 01-08-2025 Urea nitrogen/Creatinine [Mass ratio] 12.0 mg/mg 05-20 [facility] Basic Metabolic Profile (BMP )on 01-08-2025 BUN/CRE 12.0 RATIO Normal 05-20 [facility] Comment on above: Performed By: #### L 100.0100, L500.2500 ####[facility] [address] [place], [address] Calcium [Mass/Vol] 9.3 mg/dL Normal 7.6-11.0 [facility] Comment on above: Performed By: #### L 100.0100, L500.2500 ####[facility] [address] [place], [address] Chloride [Moles/Vol] 96 mmol/L Low 98-108 [facility] Comment on above: Performed By: #### L 100.0100, L500.2500 ####[facility] [address] [place], [address] CO2 [Moles/Vol] 23.4 mmol/L Normal 21.0-32.0 [facility] Comment on above: Performed By: #### L 100.0100, L500.2500 ####[facility] [address] [place], [address] Creatinine [Mass/Vol] 0.97 mg/dL Normal 0.70-1.20 [facility] Comment on above: Performed By: #### L 100.0100, L500.2500 ####[facility] [address] [place], [address] GAP 12 Normal - [facility] Comment on above: Performed By: #### L 100.0100, L500.2500 ####[facility] [address] [place], [address] GFR/1.73 sq M.predicted among non-blacks MDRD (S/P/Bld) [Vol rate/Area] 79 mL/min/{1.73_m2} Normal >60 [facility] Comment on above: Result Comment: mL/m in/1.73m2 CKD-EPI Creatinine Equation (2020) Performed By: #### L 100.0100, L500.2500 ####[facility] [address] [place], [address] Glucose [Mass/Vol] 102 mg/dL High 70-99 [facility] Comment on above: Performed By: #### L 100.0100, L500.2500 ####[facility] [address] [place], [address] Potassium [Moles/Vol] 4.4 mmol/L Normal 3.3-5.1 [facility] Comment on above: Performed By: #### L 100.0100, L500.2500 ####[facility] [address] [place], [address] Sodium [Moles/Vol] 131 mmol/L Low 133-145 [facility] Comment on above: Performed By: #### L 100.0100, L500.2500 ####[facility] [address] [place], [address] Urea nitrogen [Mass/Vol] 12 mg/dL Normal 4-19 [facility] Comment on above: Performed By: #### L 100.0100, L500.2500 ####[facility] [address] [place], [address] Basophil percentageOrdered B y: Malinda Webster on 01-08-2025 Basophils/100 WBC (Bld) 0.2 % 0-1 [facility] CBC W/Diff, Automatedon 06-1 0-2025 Absolute Lymph 0.70 X10 3/uL Low 0.83-4.51 [facility] Comment on above: Performed By: #### L 100.0100, L500.2500 ####[facility] [address] [place], [address] Absolute Neut 4.3 X10 3/uL Normal 2.0-7.7 [facility] Comment on above: Performed By: #### L 100.0100, L500.2500 ####[facility] [address] [place], [address] Basophils/100 WBC (Bld) 0.2 % Normal 0-1 [facility] Comment on above: Performed By: #### L 100.0100, L500.2500 ####[facility] [address] [place], [address] Eosinophils/100 WBC (Bld) 1.2 % Normal 0-5 [facility] Comment on above: Performed By: #### L 100.0100, L500.2500 ####[facility] [address] [place], [address] Erythrocyte distribution width (RBC) [Ratio] 12.7 % Normal 11.6-14.6 [facility] Comment on above: Performed By: #### L 100.0100, L500.2500 ####[facility] [address] [place], [address] Hematocrit (Bld) [Volume fraction] 32.6 % Low 40-54 [facility] Comment on above: Performed By: #### L 100.0100, L500.2500 ####[facility] [address] [place], [address] Hemoglobin (Bld) [Mass/Vol] 10.9 g/dL Low 13.0-16.5 [facility] Comment on above: Performed By: #### L 100.0100, L500.2500 ####[facility] [address] [place], [address] IG% 0.200 Normal 0.0-0.9 [facility] Comment on above: Result Comment: IG% - Immature Granulocytes (promyelocytes, myelocytes andmetamyelocytes) > 1% indicates that a LEFT SHIFT is Present. Performed By: #### L 100.0100, L500.2500 ####[facility] [address] [place], [address] Lymphocytes/100 WBC (Bld) 12.0 % Low 19-41 [facility] Comment on above: Performed By: #### L 100.0100, L500.2500 ####[facility] [address] [place], [address] MCH (RBC) [Entitic mass] 29.1 pg Normal 27.0-32.0 [facility] Comment on above: Performed By: #### L 100.0100, L500.2500 ####[facility] [address] [place], [address] MCHC (RBC) [Mass/Vol] 33.4 g/dL Normal 32-36 [facility] Comment on above: Performed By: #### L 100.0100, L500.2500 ####[facility] [address] [place], [address] MCV (RBC) [Entitic vol] 86.9 fL Normal 80-94 [facility] Comment on above: Performed By: #### L 100.0100, L500.2500 ####[facility] [address] [place], [address] Monocytes/100 WBC (Bld) 11.9 % High 0-10 [facility] Comment on above: Performed By: #### L 100.0100, L500.2500 ####[facility] [address] [place], [address] Neutrophils/100 WBC (Bld) 74.5 % High 47-70 [facility] Comment on above: Performed By: #### L 100.0100, L500.2500 ####[facility] [address] [place], [address] Nucleated RBC (Bld) [#/Vol] 0 10*3/uL Normal 0-5 [facility] Comment on above: Performed By: #### L 100.0100, L500.2500 ####[facility] [address] [place], [address] Platelet mean volume (Bld) [Entitic vol] 10.1 fL Normal 6.2-12.0 [facility] Comment on above: Performed By: #### L 100.0100, L500.2500 ####[facility] [address] [place], [address] Platelets (Bld) [#/Vol] 243 10*3/uL Normal 150-450 [facility] Comment on above: Performed By: #### L 100.0100, L500.2500 ####[facility] [address] [place], [address] RBC (Bld) [#/Vol] 3.75 10*6/uL Low 4.6-6.2 [facility] Comment on above: Performed By: #### L 100.0100, L500.2500 ####[facility] [address] [place], [address] RDW SD 40.5 fl Normal 35.1-43.9 [facility] Comment on above: Performed By: #### L 100.0100, L500.2500 ####[facility] [address] [place], [address] WBC (Bld) [#/Vol] 5.8 10*3/uL Normal 4.4-11.0 [facility] Comment on above: Performed By: #### L 100.0100, L500.2500 ####[facility] [address] [place], [place], [id number] Carbon dioxide, total [Moles /volume] in Central venous bloodOrdered By: Malinda Webster on 01-08-2025 CO2 [Moles/Vol] 23.4 mmol/L 21.0-32.0 [facility] Chloride assayOrdered By: Santa Webster on 01-08-2025 Chloride [Moles/Vol] 96 mmol/L Low 98-108 [facility] Eosinophil percentageOrdered By: Malinda Webster on 01-08-2025 Eosinophils/100 WBC (Bld) 1.2 % 0-5 [facility] Erythrocyte distribution wid th ratioOrdered By: Malinda Webster on 01-08-2025 Erythrocyte distribution width (RBC) [Ratio] 12.7 % 11.6-14.6 [facility] Erythrocyte distribution wid th standard deviationOrdered By: Malinda Webster on 01-08-2025 Erythrocyte distribution width (RBC) [Ratio] 40.5 fl 35.1-43.9 [facility] Glomerular filtration rate ( GFR) estimation/1.73 sq m using serum, plasma, or whole bOrdered By: Malinda Webster on 01-08-2025 GFR/1.73 sq M.predicted among non-blacks MDRD (S/P/Bld) [Vol rate/Area] 79 mL/min/{1.73_m2} >60 [facility] Hematocrit Auto (Bld) [Volum e fraction]Ordered By: Malinda Webster on 01-08-2025 Hematocrit (Bld) [Volume fraction] 32.6 % Low 40-54 [facility] Hemoglobin measurementOrdere d By: Malinda Webster on 01-08-2025 Hemoglobin (Bld) [Mass/Vol] 10.9 g/dL Low 13.0-16.5 [facility] Immature granulocytes/100 WB C Auto (Bld)Ordered By: Malinda Webster on 01-08-2025 Immature granulocytes/100 WBC (Bld) 0.200 % 0.0-0.9 [facility] MCV (mean corpuscular volume ) determinationOrdered By: Malinda Webster on 01-08-2025 MCV (RBC) [Entitic vol] 86.9 fL 80-94 [facility] Mean corpuscular hemoglobin (MCH) determinationOrdered By: Malinda Webster on 01-08-2025 MCH (RBC) [Entitic mass] 29.1 pg 27.0-32.0 [facility] Monocyte percentageOrdered B y: Malinda Webster on 01-08-2025 Monocytes/100 WBC (Bld) 11.9 % High 0-10 [facility] Neutrophil percentageOrdered By: Malinda Webster on 01-08-2025 Neutrophils/100 WBC (Bld) 74.5 % High 47-70 [facility] Platelet countOrdered By: Santa Webster on 01-08-2025 Platelets (Bld) [#/Vol] 243 10*3/uL 150-450 [facility] Potassium measurement (mass/ volume)Ordered By: Malinda Webster on 01-08-2025 Potassium (Unsp spec) [Mass/Vol] 4.4 mmol/L 3.3-5.1 [facility] RBC Auto (Bld) [#/Vol]Ordere d By: Malinda Webster on 01-08-2025 RBC (Bld) [#/Vol] 3.75 10*6/uL Low 4.6-6.2 [facility] Serum creatinine measurement (mass/volume)Ordered By: Malinda Webster on 01-08-2025 Creatinine [Mass/Vol] 0.97 mg/dL 0.70-1.20 [facility] Serum glucose measurement (m ass/volume)Ordered By: Malinda Webster on 01-08-2025 Glucose [Mass/Vol] 102 mg/dL High 70-99 [facility] Serum or plasma calcium shagufta urement (mass/volume)Ordered By: Malinda Webster on 01-08-2025 Calcium [Mass/Vol] 9.3 mg/dL 7.6-11.0 [facility] Serum or plasma urea nitroge n measurement (mass/volume)Ordered By: Malinda Webster on 01-08-2025 Urea nitrogen [Mass/Vol] 12 mg/dL 4-19 [facility] Sodium levelOrdered By: Malinda Webster on 01-08-2025 Sodium [Moles/Vol] 131 mmol/L Low 133-145 [facility] White blood cell (WBC) count Ordered By: Malinda Webster on 01-08-2025 WBC (Bld) [#/Vol] 5.8 10*3/uL 4.4-11.0 [facility] Carcinoembryonic Antigenon 0 12-16-2024 CEA 47.8 ng/mL High 0.0-4.7 [facility] Comment on above: Order Comment: MALINDA WEBSTER ORDERED CBCD Result Comment: Nons mokers <3.9 Smokers <5.6[employer] Electrochemiluminescence Immunoassay(ECLIA)Values obtained with different assay methods or kitscannot be used interchangeably. Results cannot beinterpreted as absolute evidence of the presence orabsence of malignant disease.Performed at: [employer] [place] [id number] Director: Jian Paredes PhD, Phone: [phone] Performed By: #### L 100.0100, L503.9850, L503.6030, L3100.2300, L500.4050 ####[facility] [address] [place], [address] Absolute lymphocyte countOrd ered By: [facility] on 12-14-2024 Lymphocytes Auto (Unsp spec) [#/Vol] 0.68 10*3/uL Low 0.83-4.51 [facility] Anion gap in Serum or Plasma Ordered By: Brenda Araujo on 12-14-2024 Anion gap [Moles/Vol] 12 mmol/L 5-15 [facility] Automated lymphocyte count a s percentage of total leukocytesOrdered By: Brenda Araujo on 12-14-2024 Lymphocytes/100 WBC Auto (Unsp spec) 9.9 % Low 19-41 [facility] BUN/creatinine ratioOrdered By: [facility] on 12-14-2024 Urea nitrogen/Creatinine [Mass ratio] 11.3 mg/mg 10-20 [facility] Basophil percentageOrdered B y: Brenda Araujo on 12-14-2024 Basophils/100 WBC (Bld) 0.4 % 0-1 [facility] Bilirubin, totalOrdered By: Brenda Araujo on 12-14-2024 Bilirubin [Mass/Vol] 0.51 mg/dL 0.00-1.30 [facility] CBC W/Diff, Automatedon 05-1 -2024 Absolute Lymph 0.68 X10 3/uL Low 0.83-4.51 [facility] Comment on above: Order Comment: MALINDA WEBSTER ORDERED CBCD Performed By: #### L 100.0100, L503.6550, L503.6030, L3100.2300, L500.4050 ####[facility] [address] [place], [address] Absolute Neut 5.5 X10 3/uL Normal 2.0-7.7 [facility] Comment on above: Order Comment: MALINDA WEBSTER ORDERED CBCD Performed By: #### L 100.0100, L503.6550, L503.6030, L3100.2300, L500.4050 ####[facility] [address] [place], [address] Basophils/100 WBC (Bld) 0.4 % Normal 0-1 [facility] Comment on above: Order Comment: MALINDA WEBSTER ORDERED CBCD Performed By: #### L 100.0100, L503.6550, L503.6030, L3100.2300, L500.4050 ####[facility] [address] [place], [address] Eosinophils/100 WBC (Bld) 0.4 % Normal 0-5 [facility] Comment on above: Order Comment: MALINDA WEBSTER ORDERED CBCD Performed By: #### L 100.0100, L503.6550, L503.6030, L3100.2300, L500.4050 ####[facility] [address] [place], [address] Erythrocyte distribution width (RBC) [Ratio] 12.8 % Normal 11.6-14.6 [facility] Comment on above: Order Comment: MALINDA WEBSTER ORDERED CBCD Performed By: #### L 100.0100, L503.6550, L503.6030, L3100.2300, L500.4050 ####[facility] [address] [place], [address] Hematocrit (Bld) [Volume fraction] 31.4 % Low 40-54 [facility] Comment on above: Order Comment: MALINDA WEBSTER ORDERED CBCD Performed By: #### L 100.0100, L503.6550, L503.6030, L3100.2300, L500.4050 ####[facility] [address] [place], [address] Hemoglobin (Bld) [Mass/Vol] 10.8 g/dL Low 13.0-16.5 [facility] Comment on above: Order Comment: MALINDA WEBSTER ORDERED CBCD Performed By: #### L 100.0100, L503.6550, L503.6030, L3100.2300, L500.4050 ####[facility] [address] [place], [address] IG% 0.400 Normal 0.0-0.9 [facility] Comment on above: Order Comment: MALINDA WEBSTER ORDERED CBCD Result Comment: IG% - Immature Granulocytes (promyelocytes, myelocytes andmetamyelocytes) > 1% indicates that a LEFT SHIFT is Present. Performed By: #### L 100.0100, L503.6550, L503.6030, L3100.2300, L500.4050 ####[facility] [address] [place], [address] Lymphocytes/100 WBC (Bld) 9.9 % Low 19-41 [facility] Comment on above: Order Comment: MALINDA WEBSTER ORDERED CBCD Performed By: #### L 100.0100, L503.6550, L503.6030, L3100.2300, L500.4050 ####[facility] [address] [place], [address] MCH (RBC) [Entitic mass] 30.6 pg Normal 27.0-32.0 [facility] Comment on above: Order Comment: MALINDA WEBSTER ORDERED CBCD Performed By: #### L 100.0100, L503.6550, L503.6030, L3100.2300, L500.4050 ####[facility] [address] [place], [address] MCHC (RBC) [Mass/Vol] 34.4 g/dL Normal 32-36 [facility] Comment on above: Order Comment: MALINDA WEBSTER ORDERED CBCD Performed By: #### L 100.0100, L503.6550, L503.6030, L3100.2300, L500.4050 ####[facility] [address] [place], [address] MCV (RBC) [Entitic vol] 89.0 fL Normal 80-94 [facility] Comment on above: Order Comment: MALINDA WEBSTER ORDERED CBCD Performed By: #### L 100.0100, L503.6550, L503.6030, L3100.2300, L500.4050 ####[facility] [address] [place], [address] Monocytes/100 WBC (Bld) 8.6 % Normal 0-10 [facility] Comment on above: Order Comment: MALINDA WEBSTER ORDERED CBCD Performed By: #### L 100.0100, L503.6550, L503.6030, L3100.2300, L500.4050 ####[facility] [address] [place], [address] Neutrophils/100 WBC (Bld) 80.3 % High 47-70 [facility] Comment on above: Order Comment: MALINDA WEBSTER ORDERED CBCD Performed By: #### L 100.0100, L503.6550, L503.6030, L3100.2300, L500.4050 ####[facility] [address] [place], [address] Nucleated RBC (Bld) [#/Vol] 0 10*3/uL Normal 0-5 [facility] Comment on above: Order Comment: MALINDA WEBSTER ORDERED CBCD Performed By: #### L 100.0100, L503.6550, L503.6030, L3100.2300, L500.4050 ####[facility] [address] [place], [address] Platelet mean volume (Bld) [Entitic vol] 9.6 fL Normal 6.2-12.0 [facility] Comment on above: Order Comment: MALINDA WEBSTER ORDERED CBCD Performed By: #### L 100.0100, L503.6550, L503.6030, L3100.2300, L500.4050 ####[facility] [address] [place], [address] Platelets (Bld) [#/Vol] 312 10*3/uL Normal 150-450 [facility] Comment on above: Order Comment: MALINDA WEBSTER ORDERED CBCD Performed By: #### L 100.0100, L503.6550, L503.6030, L3100.2300, L500.4050 ####[facility] [address] [place], [address] RBC (Bld) [#/Vol] 3.53 10*6/uL Low 4.6-6.2 [facility] Comment on above: Order Comment: MALINDA WEBSTER ORDERED CBCD Performed By: #### L 100.0100, L503.6550, L503.6030, L3100.2300, L500.4050 ####[facility] [address] [place], [address] RDW SD 41.6 fl Normal 35.1-43.9 [facility] Comment on above: Order Comment: MALINDA WEBSTER ORDERED CBCD Performed By: #### L 100.0100, L503.6550, L503.6030, L3100.2300, L500.4050 ####[facility] [address] [place], [address] WBC (Bld) [#/Vol] 6.9 10*3/uL Normal 4.4-11.0 [facility] Comment on above: Order Comment: MALINDA WEBSTER ORDERED CBCD Performed By: #### L 100.0100, L503.6550, L503.6030, L3100.2300, L500.4050 ####[facility] [address] [place], [address] Absolute Neut Normal 2.0-7.7 [facility] Comment on above: Result Comment: CBCD ORDER ON OTHER REQ Performed By: #### L 100.0100 ####[facility] [address] [place], [address] HCT Normal 40-54 [facility] Comment on above: Result Comment: CBCD ORDER ON OTHER REQ Performed By: #### L 100.0100 ####[facility] [address] [place], [address] HGB Normal 13.0-16.5 [facility] Comment on above: Result Comment: CBCD ORDER ON OTHER REQ Performed By: #### L 100.0100 ####[facility] [address] [place], [address] MCH Normal 27.0-32.0 [facility] Comment on above: Result Comment: CBCD ORDER ON OTHER REQ Performed By: #### L 100.0100 ####[facility] [address] [place], [address] MCHC Normal 32-36 [facility] Comment on above: Result Comment: CBCD ORDER ON OTHER REQ Performed By: #### L 100.0100 ####[facility] [address] [place], [address] MCV Normal 80-94 [facility] Comment on above: Result Comment: CBCD ORDER ON OTHER REQ Performed By: #### L 100.0100 ####[facility] [address] [place], [address] NEUT% Normal 47-70 [facility] Comment on above: Result Comment: CBCD ORDER ON OTHER REQ Performed By: #### L 100.0100 ####[facility] [address] [place], [address] PLT Normal 150-450 [facility] Comment on above: Result Comment: CBCD ORDER ON OTHER REQ Performed By: #### L 100.0100 ####[facility] [address] [place], [address] RBC Normal 4.6-6.2 [facility] Comment on above: Result Comment: CBCD ORDER ON OTHER REQ Performed By: #### L 100.0100 ####[facility] [address] [place], [address] RDW CV Normal 11.6-14.6 [facility] Comment on above: Result Comment: CBCD ORDER ON OTHER REQ Performed By: #### L 100.0100 ####[facility] [address] [place], [address] RDW SD Normal 35.1-43.9 [facility] Comment on above: Result Comment: CBCD ORDER ON OTHER REQ Performed By: #### L 100.0100 ####[facility] [address] [place], [address] WBC Normal 4.4-11.0 [facility] Comment on above: Result Comment: CBCD ORDER ON OTHER REQ Performed By: #### L 100.0100 ####[facility] [address] [place], [address] Carbon dioxide, total [Moles /volume] in Central venous bloodOrdered By: Brenda Araujo on 12-14-2024 CO2 [Moles/Vol] 23.4 mmol/L 21.0-32.0 [facility] Chest PA and Lateralon 12-14 Chest PA and Lateral Normal [facility] Chloride assayOrdered By: Kalen Araujo on 12-14-2024 Chloride [Moles/Vol] 97 mmol/L Low 98-108 [facility] Comprehensive Metabolic Prof ilon 12-14-2024 Albumin [Mass/Vol] 4.2 g/dL Normal 3.4-4.8 [facility] Comment on above: Order Comment: MALINDA WEBSTER ORDERED CBCD Performed By: #### L 100.0100, L503.6550, L503.6030, L3100.2300, L500.4050 ####[facility] [address] [place], [address] Albumin/Globulin [Mass ratio] 1.4 {ratio} Normal 0.9-2.4 [facility] Comment on above: Order Comment: MALINDA WEBSTER ORDERED CBCD Performed By: #### L 100.0100, L503.6550, L503.6030, L3100.2300, L500.4050 ####[facility] [address] [place], [address] ALK PHOS 116 U/L Normal 40-129 [facility] Comment on above: Order Comment: MALINDA WEBSTER ORDERED CBCD Performed By: #### L 100.0100, L503.6550, L503.6030, L3100.2300, L500.4050 ####[facility] [address] [place], [address] ALT [Catalytic activity/Vol] 11 U/L Normal <=46 [facility] Comment on above: Order Comment: MALINDA WEBSTER ORDERED CBCD Performed By: #### L 100.0100, L503.6550, L503.6030, L3100.2300, L500.4050 ####[facility] [address] [place], [address] AST [Catalytic activity/Vol] 24 U/L Normal <=37 [facility] Comment on above: Order Comment: MALINDA WEBSTER ORDERED CBCD Performed By: #### L 100.0100, L503.6550, L503.6030, L3100.2300, L500.4050 ####[facility] [address] [place], [address] Bilirubin [Mass/Vol] 0.51 mg/dL Normal 0.00-1.30 [facility] Comment on above: Order Comment: MALINDA DARIN ORDERED CBCD Performed By: #### L 100.0100, L503.6550, L503.6030, L3100.2300, L500.4050 ####[facility] [address] [place], [address] BUN/CRE 11.3 RATIO Normal 10-20 [facility] Comment on above: Order Comment: MALINDA DARIN ORDERED CBCD Performed By: #### L 100.0100, L503.6550, L503.6030, L3100.2300, L500.4050 ####[facility] [address] [place], [address] Calcium [Mass/Vol] 9.3 mg/dL Normal 7.6-11.0 [facility] Comment on above: Order Comment: MALINDA DARIN ORDERED CBCD Performed By: #### L 100.0100, L503.6550, L503.6030, L3100.2300, L500.4050 ####[facility] [address] [place], [address] Chloride [Moles/Vol] 97 mmol/L Low 98-108 [facility] Comment on above: Order Comment: MALINDA DARIN ORDERED CBCD Performed By: #### L 100.0100, L503.6550, L503.6030, L3100.2300, L500.4050 ####[facility] [address] [place], [address] CO2 [Moles/Vol] 23.4 mmol/L Normal 21.0-32.0 [facility] Comment on above: Order Comment: MALINDA WEBSTER ORDERED CBCD Performed By: #### L 100.0100, L503.6550, L503.6030, L3100.2300, L500.4050 ####[facility] [address] [place], [address] Creatinine [Mass/Vol] 1.00 mg/dL Normal 0.70-1.20 [facility] Comment on above: Order Comment: MALINDA DARIN ORDERED CBCD Performed By: #### L 100.0100, L503.6550, L503.6030, L3100.2300, L500.4050 ####[facility] [address] [place], [address] GAP 12 Normal 5-15 [facility] Comment on above: Order Comment: MALINDA WEBSTER ORDERED CBCD Performed By: #### L 100.0100, L503.6550, L503.6030, L3100.2300, L500.4050 ####[facility] [address] [place], [address] GFR/1.73 sq M.predicted among non-blacks MDRD (S/P/Bld) [Vol rate/Area] 76 mL/min/{1.73_m2} Normal >60 [facility] Comment on above: Order Comment: MALINDA DARIN ORDERED CBCD Result Comment: mL/m in/1.73m2 CKD-EPI Creatinine Equation (2020) Performed By: #### L 100.0100, L503.6550, L503.6030, L3100.2300, L500.4050 ####[facility] [address] [place], [address] Globulin (S) [Mass/Vol] 3.0 g/dL Normal 2.2-4.2 [facility] Comment on above: Order Comment: MALINDA WEBSTER ORDERED CBCD Performed By: #### L 100.0100, L503.6550, L503.6030, L3100.2300, L500.4050 ####[facility] [address] [place], [address] Glucose [Mass/Vol] 106 mg/dL High 70-99 [facility] Comment on above: Order Comment: MALINDA WEBSTER ORDERED CBCD Performed By: #### L 100.0100, L503.6550, L503.6030, L3100.2300, L500.4050 ####[facility] [address] [place], [address] Potassium [Moles/Vol] 3.8 mmol/L Normal 3.3-5.1 [facility] Comment on above: Order Comment: MALINDA WEBSTER ORDERED CBCD Performed By: #### L 100.0100, L503.6550, L503.6030, L3100.2300, L500.4050 ####[facility] [address] [place], [address] Sodium [Moles/Vol] 133 mmol/L Normal 133-145 [facility] Comment on above: Order Comment: MALINDA WEBSTER ORDERED CBCD Performed By: #### L 100.0100, L503.6550, L503.6030, L3100.2300, L500.4050 ####[facility] [address] [place], [address] T PROT 7.3 g/dL Normal 5.9-8.4 [facility] Comment on above: Order Comment: MALINDA WEBSTER ORDERED CBCD Performed By: #### L 100.0100, L503.6550, L503.6030, L3100.2300, L500.4050 ####[facility] [address] [place], [address] Urea nitrogen [Mass/Vol] 11 mg/dL Normal 4-19 [facility] Comment on above: Order Comment: MALINDA WEBSTER ORDERED CBCD Performed By: #### L 100.0100, L503.6550, L503.6030, L3100.2300, L500.4050 ####[facility] [address] [place], [address] Eosinophil percentageOrdered By: Brenda Araujo on 12-14-2024 Eosinophils/100 WBC (Bld) 0.4 % 0-5 [facility] Erythrocyte distribution wid th ratioOrdered By: Brenda Araujo on 12-14-2024 Erythrocyte distribution width (RBC) [Ratio] 12.8 % 11.6-14.6 [facility] Erythrocyte distribution wid th standard deviationOrdered By: [facility] on 12-14-2024 Erythrocyte distribution width (RBC) [Ratio] 41.6 fl 35.1-43.9 [facility] Ferritinon 12-14-2024 Ferritin [Mass/Vol] 49 ng/mL Normal 37-417 [facility] Comment on above: Order Comment: MALINDA WEBSTER ORDERED CBCD Performed By: #### L 100.0100, L503.6550, L503.6030, L3100.2300, L500.4050 ####[facility] [address] [place], [place], [address] Glomerular filtration rate ( GFR) estimation/1.73 sq m using serum, plasma, or whole bOrdered By: [facility]li [facility] on 12-14-2024 GFR/1.73 sq M.predicted among non-blacks MDRD (S/P/Bld) [Vol rate/Area] 76 mL/min/{1.73_m2} >60 [facility] Hematocrit Auto (Bld) [Volum e fraction]Ordered By: [facility] on 12-14-2024 Hematocrit (Bld) [Volume fraction] 31.4 % Low 40-54 [facility] Hemoglobin measurementOrdere d By: Brenda Araujo on 12-14-2024 Hemoglobin (Bld) [Mass/Vol] 10.8 g/dL Low 13.0-16.5 [facility] Immature granulocytes/100 WB C Auto (Bld)Ordered By: Brenda Araujo on 12-14-2024 Immature granulocytes/100 WBC (Bld) 0.400 % 0.0-0.9 [facility] Iron measurement (mass/mass) Ordered By: Brenda Araujo on 12-14-2024 Iron (Unsp spec) [Mass/Mass] 24 ug/dL Low 65-175 [facility] Iron+Iron Binding Capacityon 12-14-2024 Iron [Mass/Vol] 24 ug/dL Low 65-175 [facility] Comment on above: Order Comment: MALINDA WEBSTER ORDERED CBCD Performed By: #### L 100.0100, L503.6550, L503.6030, L3100.2300, L500.4050 ####[facility] [address] [place], [address] IRON SATURATION 8.0 Low 9-55 [facility] Comment on above: Order Comment: MALINDA WEBSTER ORDERED CBCD Performed By: #### L 100.0100, L503.6550, L503.6030, L3100.2300, L500.4050 ####[facility] [address] [place], [address] TIBC 314 ug/dL Normal 250-450 [facility] Comment on above: Order Comment: MALINDA WEBSTER ORDERED CBCD Performed By: #### L 100.0100, L503.6550, L503.6030, L3100.2300, L500.4050 ####[facility] [address] [place], [address] UIBC 290 ug/dL Normal 228-428 [facility] Comment on above: Order Comment: MALINDA WEBSTER ORDERED CBCD Performed By: #### L 100.0100, L503.6550, L503.6030, L3100.2300, L500.4050 ####[facility] [address] [place], [address] MCV (mean corpuscular volume ) determinationOrdered By: Brenda Araujo on 12-14-2024 MCV (RBC) [Entitic vol] 89.0 fL 80-94 [facility] Mean corpuscular hemoglobin (MCH) determinationOrdered By: Brenda Araujo on 12-14-2024 MCH (RBC) [Entitic mass] 30.6 pg 27.0-32.0 [facility] Monocyte percentageOrdered B y: Brenda Araujo on 12-14-2024 Monocytes/100 WBC (Bld) 8.6 % 0-10 [facility] Neutrophil percentageOrdered By: Brenda Araujo on 12-14-2024 Neutrophils/100 WBC (Bld) 80.3 % High 47-70 [facility] No Panel InformationOrdered By: Brenda Araujo on 12-14-2024 24 U/L <38 [facility] 290 ug/dL 228-428 [facility] Platelet countOrdered By: Kalen Araujo on 12-14-2024 Platelets (Bld) [#/Vol] 312 10*3/uL 150-450 [facility] Potassium measurement (mass/ volume)Ordered By: Brenda Araujo on 12-14-2024 Potassium (Unsp spec) [Mass/Vol] 3.8 mmol/L 3.3-5.1 [facility] RBC Auto (Bld) [#/Vol]Ordere d By: Brenda Araujo on 12-14-2024 RBC (Bld) [#/Vol] 3.53 10*6/uL Low 4.6-6.2 [facility] Serum creatinine measurement (mass/volume)Ordered By: Brenda Araujo on 12-14-2024 Creatinine [Mass/Vol] 1.00 mg/dL 0.70-1.20 [facility] Serum globulin measurementOr dered By: Brenda Araujo on 12-14-2024 Globulin (S) [Mass/Vol] 3.0 g/dL 2.2-4.2 [facility] Serum glucose measurement (m ass/volume)Ordered By: Brenda Araujo on 12-14-2024 Glucose [Mass/Vol] 106 mg/dL High 70-99 [facility] Serum or plasma alanine carrion otransferase (ALT) measurementOrdered By: Brenda Araujo on 12-14-2024 ALT [Catalytic activity/Vol] 11 U/L <47 [facility] Serum or plasma albumin shagufta urement (mass/volume)Ordered By: Brenda Araujo on 12-14-2024 Albumin [Mass/Vol] 4.2 g/dL 3.4-4.8 [facility] Serum or plasma albumin/glob ulin mass ratioOrdered By: Brenda Araujo on 12-14-2024 Albumin/Globulin [Mass ratio] 1.4 {ratio} 0.9-2.4 [facility] Serum or plasma alkaline airam sphatase measurementOrdered By: Brenda Araujo on 12-14-2024 ALP [Catalytic activity/Vol] 116 U/L 40-129 [facility] Serum or plasma calcium shagufta urement (mass/volume)Ordered By: Brenda Araujo on 12-14-2024 Calcium [Mass/Vol] 9.3 mg/dL 7.6-11.0 [facility] Serum or plasma carcinoembry onic antigen measurement (mass/volume)Ordered By: Brenda Araujo on 12-14-2024 Carcinoembryonic Ag [Mass/Vol] 47.8 ng/mL High 0.0-4.7 [facility] Serum or plasma ferritin francy surement (mass/volume)Ordered By: Brenda Araujo on 12-14-2024 Ferritin [Mass/Vol] 49 ng/mL 37-417 [facility] Serum or plasma iron saturat ion measurement (mass fraction)Ordered By: Brenda Araujo on 12-14-2024 Iron saturation [Mass fraction] 8.0 % Low 9-55 [facility] Serum or plasma urea nitroge n measurement (mass/volume)Ordered By: Brenda Araujo on 12-14-2024 Urea nitrogen [Mass/Vol] 11 mg/dL 4-19 [facility] Sodium levelOrdered By: Tha Araujo on 12-14-2024 Sodium [Moles/Vol] 133 mmol/L 133-145 [facility] Total proteinOrdered By: Rahul Araujo on 12-14-2024 Protein [Mass/Vol] 7.3 g/dL 5.9-8.4 [facility] White blood cell (WBC) count Ordered By: Brenda Araujo on 12-14-2024 WBC (Bld) [#/Vol] 6.9 10*3/uL 4.4-11.0 [facility] Surgical pathology reportOrd ered By: Teresa Martel on 12-06-2024 Surgical pathology study [facility] Absolute lymphocyte countOrd ered By: Darrel Watts on 12-05-2024 Lymphocytes Auto (Unsp spec) [#/Vol] 0.91 10*3/uL 0.83-4.51 [facility] Absolute neutrophil countOrd ered By: Darrel Watts on 12-05-2024 Neutrophils (Bld) [#/Vol] 5.6 10*3/uL 2.0-7.7 [facility] Activated partial thrombopla stin time (aPTT) in platelet poor plasma by coagulation aOrdered By: Darrel Watts on 12-05-2024 aPTT Coag (PPP) [Time] 34.0 s 24.1-36.2 [facility] Automated lymphocyte count a s percentage of total leukocytesOrdered By: Darrel Watts on 12-05-2024 Lymphocytes/100 WBC Auto (Unsp spec) 12.1 % Low 19-41 [facility] Basophil percentageOrdered B y: Darrel Watts on 12-05-2024 Basophils/100 WBC (Bld) 0.3 % 0-1 [facility] Biopsy/Inj or Needle Placeme nton 12-05-2024 Biopsy/Inj or Needle Placement Normal [facility] CBC W/Diff, Automatedon Absolute Lymph 0.91 X10 3/uL Normal 0.83-4.51 [facility] Comment on above: Performed By: #### L 300.4310, L300.3900, L100.0100 ####[facility] [address] [place], [address] Absolute Neut 5.6 X10 3/uL Normal 2.0-7.7 [facility] Comment on above: Performed By: #### L 300.4310, L300.3900, L100.0100 ####[facility] [address] [place], [address] Basophils/100 WBC (Bld) 0.3 % Normal 0-1 [facility] Comment on above: Performed By: #### L 300.4310, L300.3900, L100.0100 ####[facility] [address] [place], [address] Eosinophils/100 WBC (Bld) 2.3 % Normal 0-5 [facility] Comment on above: Performed By: #### L 300.4310, L300.3900, L100.0100 ####[facility] [address] [place], [address] Erythrocyte distribution width (RBC) [Ratio] 12.7 % Normal 11.6-14.6 [facility] Comment on above: Performed By: #### L 300.4310, L300.3900, L100.0100 ####[facility] [address] [place], [address] Hematocrit (Bld) [Volume fraction] 29.2 % Low 40-54 [facility] Comment on above: Performed By: #### L 300.4310, L300.3900, L100.0100 ####[facility] [address] [place], [address] Hemoglobin (Bld) [Mass/Vol] 10.0 g/dL Low 13.0-16.5 [facility] Comment on above: Performed By: #### L 300.4310, L300.3900, L100.0100 ####[facility] [address] [place], [address] IG% 0.300 Normal 0.0-0.9 [facility] Comment on above: Result Comment: IG% - Immature Granulocytes (promyelocytes, myelocytes andmetamyelocytes) > 1% indicates that a LEFT SHIFT is Present. Performed By: #### L 300.4310, L300.3900, L100.0100 ####[facility] [address] [place], [address] Lymphocytes/100 WBC (Bld) 12.1 % Low 19-41 [facility] Comment on above: Performed By: #### L 300.4310, L300.3900, L100.0100 ####[facility] [address] [place], [address] MCH (RBC) [Entitic mass] 30.4 pg Normal 27.0-32.0 [facility] Comment on above: Performed By: #### L 300.4310, L300.3900, L100.0100 ####[facility] [address] [place], [address] MCHC (RBC) [Mass/Vol] 34.2 g/dL Normal 32-36 [facility] Comment on above: Performed By: #### L 300.4310, L300.3900, L100.0100 ####[facility] [address] [place], [address] MCV (RBC) [Entitic vol] 88.8 fL Normal 80-94 [facility] Comment on above: Performed By: #### L 300.4310, L300.3900, L100.0100 ####[facility] [address] [place], [address] Monocytes/100 WBC (Bld) 10.8 % High 0-10 [facility] Comment on above: Performed By: #### L 300.4310, L300.3900, L100.0100 ####[facility] [address] [place], [address] Neutrophils/100 WBC (Bld) 74.2 % High 47-70 [facility] Comment on above: Performed By: #### L 300.4310, L300.3900, L100.0100 ####[facility] [address] [place], [address] Nucleated RBC (Bld) [#/Vol] 0 10*3/uL Normal 0-5 [facility] Comment on above: Performed By: #### L 300.4310, L300.3900, L100.0100 ####[facility] [address] [place], [address] Platelet mean volume (Bld) [Entitic vol] 8.8 fL Normal 6.2-12.0 [facility] Comment on above: Performed By: #### L 300.4310, L300.3900, L100.0100 ####[facility] [address] [place], [address] Platelets (Bld) [#/Vol] 334 10*3/uL Normal 150-450 [facility] Comment on above: Performed By: #### L 300.4310, L300.3900, L100.0100 ####[facility] [address] [place], [address] RBC (Bld) [#/Vol] 3.29 10*6/uL Low 4.6-6.2 [facility] Comment on above: Performed By: #### L 300.4310, L300.3900, L100.0100 ####[facility] [address] [place], [address] RDW SD 41.4 fl Normal 35.1-43.9 [facility] Comment on above: Performed By: #### L 300.4310, L300.3900, L100.0100 ####[facility] [address] [place], [address] WBC (Bld) [#/Vol] 7.5 10*3/uL Normal 4.4-11.0 [facility] Comment on above: Performed By: #### L 300.4310, L300.3900, L100.0100 ####[facility] [address] [place], [address] Eosinophil percentageOrdered By: Darrel Watts on 12-05-2024 Eosinophils/100 WBC (Bld) 2.3 % 0-5 [facility] Erythrocyte distribution wid th ratioOrdered By: Darrel Watts on 12-05-2024 Erythrocyte distribution width (RBC) [Ratio] 12.7 % 11.6-14.6 [facility] Erythrocyte distribution wid th standard deviationOrdered By: Darrel Watts on 12-05-2024 Erythrocyte distribution width (RBC) [Ratio] 41.4 fl 35.1-43.9 [facility] Hematocrit Auto (Bld) [Volum e fraction]Ordered By: Darrel Watts on 12-05-2024 Hematocrit (Bld) [Volume fraction] 29.2 % Low 40-54 [facility] Hemoglobin measurementOrdere d By: Darrel Watts on 12-05-2024 Hemoglobin (Bld) [Mass/Vol] 10.0 g/dL Low 13.0-16.5 [facility] Immature granulocytes/100 WB C Auto (Bld)Ordered By: Darrel Watts on 12-05-2024 Immature granulocytes/100 WBC (Bld) 0.300 % 0.0-0.9 [facility] Comment on above: IG% - Immature Granu locytes (promyelocytes, myelocytes and metamyelocytes) > 1% indicates that a LEFT SHIFT is Present. Immunohistochemical Stainson 12-05-2024 Immunohistochemical Stains Normal [facility] Comment on above: Performed By: #### P IMMS ####[facility] [address] [place], [place], [id number] International normalized rat io (INR) calculationOrdered By: Darrel Watts on 12-05-2024 INR Coag (Bld) [Relative time] 1.1 {INR} [facility] MCV (mean corpuscular volume ) determinationOrdered By: Darrel Watts on 12-05-2024 MCV (RBC) [Entitic vol] 88.8 fL 80-94 [facility] Mean corpuscular hemoglobin (MCH) determinationOrdered By: Darrel Watts on 12-05-2024 MCH (RBC) [Entitic mass] 30.4 pg 27.0-32.0 [facility] Mean corpuscular hemoglobin concentration (MCHC) determinationOrdered By: Darrel Watts on 12-05-2024 MCHC (RBC) [Mass/Vol] 34.2 g/dL 32-36 [facility] Mean platelet volume determi nationOrdered By: Darrel Watts on 12-05-2024 Platelet mean volume (Bld) [Entitic vol] 8.8 fL 6.2-12.0 [facility] Monocyte percentageOrdered B y: Darrel Watts on 12-05-2024 Monocytes/100 WBC (Bld) 10.8 % High 0-10 [facility] Neutrophil percentageOrdered By: Darrel Watts on 12-05-2024 Neutrophils/100 WBC (Bld) 74.2 % High 47-70 [facility] Nucleated red blood cell per centageOrdered By: Darrel Watts on 12-05-2024 Nucleated RBC/100 WBC (Bld) [Ratio] 0 % 0-5 [facility] Partial Thromboplast Timeon 12-05-2024 aPTT Coag (Bld) [Time] 34.0 s Normal 24.1-36.2 [facility] Comment on above: Performed By: #### L 300.4310, L300.3900, L100.0100 ####[facility] [address] [place], [address] Platelet countOrdered By: Gopi Watts on 12-05-2024 Platelets (Bld) [#/Vol] 334 10*3/uL 150-450 [facility] Prothrombin Time w/INRon INR Coag (PPP) [Relative time] 1.1 {INR} Normal [facility] Comment on above: Performed By: #### L 300.4310, L300.3900, L100.0100 ####[facility] [address] [place], [address] PT Coag (PPP) [Time] 14.0 s Normal 11.7-14.9 [facility] Comment on above: Performed By: #### L 300.4310, L300.3900, L100.0100 ####[facility] [address] [place], [address] Prothrombin timeOrdered By: Darrel Watts on 12-05-2024 PT Coag (PPP) [Time] 14.0 s 11.7-14.9 [facility] RBC Auto (Bld) [#/Vol]Ordere d By: Darrel Watts on 12-05-2024 RBC (Bld) [#/Vol] 3.29 10*6/uL Low 4.6-6.2 [facility] White blood cell (WBC) count Ordered By: Darrel Watts on 12-05-2024 WBC (Bld) [#/Vol] 7.5 10*3/uL 4.4-11.0 [facility] Gastroenterology Visit Repor ton 12-04-2024 Gastroenterology Visit Report Normal [facility] Chest WITH Contraston 2024 Chest WITH Contrast Normal [facility] Echo Complete W/ Contraston 11-28-2024 Echo Complete W/ Contrast Normal [facility] Oncology Visit Reporton 11-01 Oncology Visit Report Normal [facility] Absolute lymphocyte countOrd ered By: Neville Jang on 11-20-2024 Lymphocytes Auto (Unsp spec) [#/Vol] 1.21 10*3/uL 0.83-4.51 [facility] Absolute neutrophil countOrd ered By: Neville Jang on 11-20-2024 Neutrophils (Bld) [#/Vol] 7.6 10*3/uL 2.0-7.7 [facility] Automated lymphocyte count a s percentage of total leukocytesOrdered By: Neville Jang on 11-20-2024 Lymphocytes/100 WBC Auto (Unsp spec) 12.0 % Low 19-41 [facility] Basophil percentageOrdered B y: Neville Jang on 11-20-2024 Basophils/100 WBC (Bld) 0.3 % 0-1 [facility] CBC W/Diff, Automatedon 10-31 Absolute Lymph 1.21 X10 3/uL Normal 0.83-4.51 [facility] Comment on above: Performed By: #### L 100.0100 ####[facility] [address] [place], [address] Absolute Neut 7.6 X10 3/uL Normal 2.0-7.7 [facility] Comment on above: Performed By: #### L 100.0100 ####[facility] [address] [place], [address] Basophils/100 WBC (Bld) 0.3 % Normal 0-1 [facility] Comment on above: Performed By: #### L 100.0100 ####[facility] [address] [place], [address] Eosinophils/100 WBC (Bld) 1.7 % Normal 0-5 [facility] Comment on above: Performed By: #### L 100.0100 ####[facility] [address] [place], [address] Erythrocyte distribution width (RBC) [Ratio] 12.6 % Normal 11.6-14.6 [facility] Comment on above: Performed By: #### L 100.0100 ####[facility] [address] [place], [address] Hematocrit (Bld) [Volume fraction] 29.4 % Low 40-54 [facility] Comment on above: Performed By: #### L 100.0100 ####[facility] [address] [place], [address] Hemoglobin (Bld) [Mass/Vol] 10.3 g/dL Low 13.0-16.5 [facility] Comment on above: Performed By: #### L 100.0100 ####[facility] [address] [place], [address] IG% 0.300 Normal 0.0-0.9 [facility] Comment on above: Result Comment: IG% - Immature Granulocytes (promyelocytes, myelocytes andmetamyelocytes) > 1% indicates that a LEFT SHIFT is Present. Performed By: #### L 100.0100 ####[facility] [address] [place], [address] Lymphocytes/100 WBC (Bld) 12.0 % Low 19-41 [facility] Comment on above: Performed By: #### L 100.0100 ####[facility] [address] [place], [address] MCH (RBC) [Entitic mass] 30.8 pg Normal 27.0-32.0 [facility] Comment on above: Performed By: #### L 100.0100 ####[facility] [address] [place], [address] MCHC (RBC) [Mass/Vol] 35.0 g/dL Normal 32-36 [facility] Comment on above: Performed By: #### L 100.0100 ####[facility] [address] [place], [address] MCV (RBC) [Entitic vol] 88.0 fL Normal 80-94 [facility] Comment on above: Performed By: #### L 100.0100 ####[facility] [address] [place], [address] Monocytes/100 WBC (Bld) 10.2 % High 0-10 [facility] Comment on above: Performed By: #### L 100.0100 ####[facility] [address] [place], [address] Neutrophils/100 WBC (Bld) 75.5 % High 47-70 [facility] Comment on above: Performed By: #### L 100.0100 ####[facility] [address] [place], [address] Nucleated RBC (Bld) [#/Vol] 0 10*3/uL Normal 0-5 [facility] Comment on above: Performed By: #### L 100.0100 ####[facility] [address] [place], [address] Platelet mean volume (Bld) [Entitic vol] 8.7 fL Normal 6.2-12.0 [facility] Comment on above: Performed By: #### L 100.0100 ####[facility] [address] [place], [address] Platelets (Bld) [#/Vol] 314 10*3/uL Normal 150-450 [facility] Comment on above: Performed By: #### L 100.0100 ####[facility] [address] [place], [address] RBC (Bld) [#/Vol] 3.34 10*6/uL Low 4.6-6.2 [facility] Comment on above: Performed By: #### L 100.0100 ####[facility] [address] [place], [address] RDW SD 40.2 fl Normal 35.1-43.9 [facility] Comment on above: Performed By: #### L 100.0100 ####[facility] [address] [place], [address] WBC (Bld) [#/Vol] 10.1 10*3/uL Normal 4.4-11.0 [facility] Comment on above: Performed By: #### L 100.0100 ####[facility] [address] [place], [address] Colonoscopy Reporton Colonoscopy Report Normal [facility] Discharge Instructionon 10-31 Discharge Instruction Normal [facility] Eosinophil percentageOrdered By: Neville Jang on 11-20-2024 Eosinophils/100 WBC (Bld) 1.7 % 0-5 [facility] Erythrocyte distribution wid th (RBC) [Ratio]Ordered By: Neville Jang on 11-20-2024 Erythrocyte distribution width (RBC) [Entitic vol] 40.2 fL 35.1-43.9 [facility] Erythrocyte distribution wid th ratioOrdered By: Neville Jang on 11-20-2024 Erythrocyte distribution width (RBC) [Ratio] 12.6 % 11.6-14.6 [facility] Erythrocyte distribution wid th standard deviationOrdered By: Neville Jang on 11-20-2024 Erythrocyte distribution width (RBC) [Ratio] 40.2 fl 35.1-43.9 [facility] Hematocrit Auto (Bld) [Volum e fraction]Ordered By: Neville Jang on 11-20-2024 Hematocrit (Bld) [Volume fraction] 29.4 % Low 40-54 [facility] Hemoglobin measurementOrdere d By: Neville Jang on 11-20-2024 Hemoglobin (Bld) [Mass/Vol] 10.3 g/dL Low 13.0-16.5 [facility] Immature granulocytes/100 WB C Auto (Bld)Ordered By: Neville Jang on 11-20-2024 Immature granulocytes/100 WBC (Bld) 0.300 % 0.0-0.9 [facility] Comment on above: IG% - Immature Granu locytes (promyelocytes, myelocytes and metamyelocytes) > 1% indicates that a LEFT SHIFT is Present. Lymphocytes Auto (Unsp spec) [#/Vol]Ordered By: Neville Jang on 11-20-2024 Lymphocytes (Bld) [#/Vol] 1.21 10*3/uL 0.83-4.51 [facility] Lymphocytes/100 WBC Auto (Un sp spec)Ordered By: Neville Jang on 11-20-2024 Lymphocytes/100 WBC (Bld) 12.0 % Low 19-41 [facility] MCV (mean corpuscular volume ) determinationOrdered By: Neville Jang on 11-20-2024 MCV (RBC) [Entitic vol] 88.0 fL 80-94 [facility] MR/UETDCGGR1lo 11-20-2024 MR/POSTOPAN2 Normal [facility] Mean corpuscular hemoglobin (MCH) determinationOrdered By: Neville Jang on 11-20-2024 MCH (RBC) [Entitic mass] 30.8 pg 27.0-32.0 [facility] Mean corpuscular hemoglobin concentration (MCHC) determinationOrdered By: Neville Jang on 11-20-2024 MCHC (RBC) [Mass/Vol] 35.0 g/dL 32-36 [facility] Mean platelet volume determi nationOrdered By: Neville Jang on 11-20-2024 Platelet mean volume (Bld) [Entitic vol] 8.7 fL 6.2-12.0 [facility] Monocyte percentageOrdered B y: Neville Jang on 11-20-2024 Monocytes/100 WBC (Bld) 10.2 % High 0-10 [facility] Neutrophil percentageOrdered By: Neville Jang on 11-20-2024 Neutrophils/100 WBC (Bld) 75.5 % High 47-70 [facility] Nucleated red blood cell per centageOrdered By: Neville Jang on 11-20-2024 Nucleated RBC/100 WBC (Bld) [Ratio] 0 % 0-5 [facility] Platelet countOrdered By: Kalen Jang on 11-20-2024 Platelets (Bld) [#/Vol] 314 10*3/uL 150-450 [facility] RBC Auto (Bld) [#/Vol]Ordere d By: Neville Jang on 11-20-2024 RBC (Bld) [#/Vol] 3.34 10*6/uL Low 4.6-6.2 [facility] White blood cell (WBC) count Ordered By: Neville Jang on 11-20-2024 WBC (Bld) [#/Vol] 10.1 10*3/uL 4.4-11.0 [facility] Anion gap in Serum or Plasma Ordered By: Kelvin Schrader on 11-19-2024 Anion gap [Moles/Vol] 12 mmol/L - [facility] BUN/creatinine ratioOrdered By: Kelvin Schrader on 11-19-2024 Urea nitrogen/Creatinine [Mass ratio] 10.4 mg/mg - [facility] Basic Metabolic Profile (BMP )on 11-19-2024 BUN/CRE 10.4 RATIO Normal - [facility] Comment on above: Performed By: #### L 100.0100, L500.2500 ####[facility] [address] [place], [address] Calcium [Mass/Vol] 8.8 mg/dL Normal 7.6-11.0 [facility] Comment on above: Performed By: #### L 100.0100, L500.2500 ####[facility] [address] [place], [address] Chloride [Moles/Vol] 99 mmol/L Normal 98-108 [facility] Comment on above: Performed By: #### L 100.0100, L500.2500 ####[facility] [address] [place], [address] CO2 [Moles/Vol] 21.0 mmol/L Normal 21.0-32.0 [facility] Comment on above: Performed By: #### L 100.0100, L500.2500 ####[facility] [address] [place], [address] Creatinine [Mass/Vol] 0.95 mg/dL Normal 0.70-1.20 [facility] Comment on above: Performed By: #### L 100.0100, L500.2500 ####[facility] [address] [place], [address] ECRCL 57.98 ml/min Normal 50-250 [facility] Comment on above: Performed By: #### L 100.0100, L500.2500 ####[facility] [address] [place], [address] GAP 12 Normal 5-15 [facility] Comment on above: Performed By: #### L 100.0100, L500.2500 ####[facility] [address] [place], [address] GFR/1.73 sq M.predicted among non-blacks MDRD (S/P/Bld) [Vol rate/Area] 81 mL/min/{1.73_m2} Normal >60 [facility] Comment on above: Result Comment: mL/m in/1.73m2 CKD-EPI Creatinine Equation (2020) Performed By: #### L 100.0100, L500.2500 ####[facility] [address] [place], [address] Glucose [Mass/Vol] 99 mg/dL Normal 70-99 [facility] Comment on above: Performed By: #### L 100.0100, L500.2500 ####[facility] [address] [place], [address] Potassium [Moles/Vol] 4.0 mmol/L Normal 3.3-5.1 [facility] Comment on above: Performed By: #### L 100.0100, L500.2500 ####[facility] [address] [place], [address] Sodium [Moles/Vol] 132 mmol/L Low 133-145 [facility] Comment on above: Performed By: #### L 100.0100, L500.2500 ####[facility] [address] [place], [address] Urea nitrogen [Mass/Vol] 10 mg/dL Normal 4-19 [facility] Comment on above: Performed By: #### L 100.0100, L500.2500 ####[facility] [address] [place], [address] CBC W/Diff, Automatedon 10-31 Absolute Lymph 1.20 X10 3/uL Normal 0.83-4.51 [facility] Comment on above: Performed By: #### L 100.0100, L500.2500 ####[facility] [address] [place], [address] Absolute Neut 6.2 X10 3/uL Normal 2.0-7.7 [facility] Comment on above: Performed By: #### L 100.0100, L500.2500 ####[facility] [address] [place], [address] Basophils/100 WBC (Bld) 0.2 % Normal 0-1 [facility] Comment on above: Performed By: #### L 100.0100, L500.2500 ####[facility] [address] [place], [address] Eosinophils/100 WBC (Bld) 1.9 % Normal 0-5 [facility] Comment on above: Performed By: #### L 100.0100, L500.2500 ####[facility] [address] [place], [address] Erythrocyte distribution width (RBC) [Ratio] 12.5 % Normal 11.6-14.6 [facility] Comment on above: Performed By: #### L 100.0100, L500.2500 ####[facility] [address] [place], [address] Hematocrit (Bld) [Volume fraction] 32.0 % Low 40-54 [facility] Comment on above: Performed By: #### L 100.0100, L500.2500 ####[facility] [address] [place], [address] Hemoglobin (Bld) [Mass/Vol] 10.9 g/dL Low 13.0-16.5 [facility] Comment on above: Performed By: #### L 100.0100, L500.2500 ####[facility] [address] [place], [address] IG% 0.400 Normal 0.0-0.9 [facility] Comment on above: Result Comment: IG% - Immature Granulocytes (promyelocytes, myelocytes andmetamyelocytes) > 1% indicates that a LEFT SHIFT is Present. Performed By: #### L 100.0100, L500.2500 ####[facility] [address] [place], [address] Lymphocytes/100 WBC (Bld) 14.2 % Low 19-41 [facility] Comment on above: Performed By: #### L 100.0100, L500.2500 ####[facility] [address] [place], [address] MCH (RBC) [Entitic mass] 30.4 pg Normal 27.0-32.0 [facility] Comment on above: Performed By: #### L 100.0100, L500.2500 ####[facility] [address] [place], [address] MCHC (RBC) [Mass/Vol] 34.1 g/dL Normal 32-36 [facility] Comment on above: Performed By: #### L 100.0100, L500.2500 ####[facility] [address] [place], [address] MCV (RBC) [Entitic vol] 89.1 fL Normal 80-94 [facility] Comment on above: Performed By: #### L 100.0100, L500.2500 ####[facility] [address] [place], [address] Monocytes/100 WBC (Bld) 10.0 % Normal 0-10 [facility] Comment on above: Performed By: #### L 100.0100, L500.2500 ####[facility] [address] [place], [address] Neutrophils/100 WBC (Bld) 73.3 % High 47-70 [facility] Comment on above: Performed By: #### L 100.0100, L500.2500 ####[facility] [address] [place], [address] Nucleated RBC (Bld) [#/Vol] 0 10*3/uL Normal 0-5 [facility] Comment on above: Performed By: #### L 100.0100, L500.2500 ####[facility] [address] [place], [address] Platelet mean volume (Bld) [Entitic vol] 9.2 fL Normal 6.2-12.0 [facility] Comment on above: Performed By: #### L 100.0100, L500.2500 ####[facility] [address] [place], [address] Platelets (Bld) [#/Vol] 353 10*3/uL Normal 150-450 [facility] Comment on above: Performed By: #### L 100.0100, L500.2500 ####[facility] [address] [place], [address] RBC (Bld) [#/Vol] 3.59 10*6/uL Low 4.6-6.2 [facility] Comment on above: Performed By: #### L 100.0100, L500.2500 ####[facility] [address] [place], [address] RDW SD 41.0 fl Normal 35.1-43.9 [facility] Comment on above: Performed By: #### L 100.0100, L500.2500 ####[facility] [address] [place], [address] WBC (Bld) [#/Vol] 8.4 10*3/uL Normal 4.4-11.0 [facility] Comment on above: Performed By: #### L 100.0100, L500.2500 ####[facility] [address] [place], [address] Carbon dioxide, total [Moles /volume] in Central venous bloodOrdered By: Kelvin Schrader on 11-19-2024 CO2 [Moles/Vol] 21.0 mmol/L 21.0-32.0 [facility] Chloride assayOrdered By: Marybel Schrader on 11-19-2024 Chloride [Moles/Vol] 99 mmol/L 98-108 [facility] Estimation of creatinine dunia aranceOrdered By: Kelvin Schrader on 11-19-2024 Estimated Creatinine Clearance Calc 57.98 ml/min 50-250 [facility] GFR/1.73 sq M.predicted gregg g non-blacks MDRD (S/P/Bld) [Vol rate/Area]Ordered By: Kelvin Schrader on 11-19-2024 Estimated GFR (MDRD) Non-Af Amer 81 >60 [facility] Comment on above: mL/min/1.73m2 CKD-EP I Creatinine Equation (2020) Glomerular filtration rate ( GFR) estimation/1.73 sq m using serum, plasma, or whole bOrdered By: Kelvin Schrader on 11-19-2024 GFR/1.73 sq M.predicted among non-blacks MDRD (S/P/Bld) [Vol rate/Area] 81 mL/min/{1.73_m2} >60 [facility] Comment on above: mL/min/1.73m2 CKD-EP I Creatinine Equation (2020) MR/CON.PCM.GIon 11-19-2024 MR/CON.PCM.GI Normal [facility] MR/POSTOP.ANEon 11-19-2024 MR/POSTOP.ANE [facility] Potassium (Unsp spec) [Mass/ Vol]Ordered By: Kelvin Schrader on 11-19-2024 Potassium [Moles/Vol] 4.0 mmol/L 3.3-5.1 [facility] Potassium measurement (mass/ volume)Ordered By: Kelvin Schrader on 11-19-2024 Potassium (Unsp spec) [Mass/Vol] 4.0 mmol/L 3.3-5.1 [facility] Serum creatinine measurement (mass/volume)Ordered By: Kelvin Schrader on 11-19-2024 Creatinine [Mass/Vol] 0.95 mg/dL 0.70-1.20 [facility] Serum glucose measurement (m ass/volume)Ordered By: Kelvin Schrader on 11-19-2024 Glucose [Mass/Vol] 99 mg/dL 70-99 [facility] Serum or plasma calcium shagufta urement (mass/volume)Ordered By: Kelvin Schrader on 11-19-2024 Calcium [Mass/Vol] 8.8 mg/dL 7.6-11.0 [facility] Serum or plasma urea nitroge n measurement (mass/volume)Ordered By: Kelvin Schrader on 11-19-2024 Urea nitrogen [Mass/Vol] 10 mg/dL 11-17 [facility] Sodium levelOrdered By: Vernon Schrader on 11-19-2024 Sodium [Moles/Vol] 132 mmol/L Low 133-145 [facility] Abdomen/Pelvis W IV Cont ONL Yon 11-18-2024 Abdomen/Pelvis W IV Cont ONLY Normal [facility] Absolute neutrophil countOrd ered By: Radha Damon on 11-18-2024 Neutrophils (Bld) [#/Vol] 5.7 10*3/uL 2.0-7.7 [facility] Anion gap in Serum or Plasma Ordered By: Radha Damon on 11-18-2024 Anion gap [Moles/Vol] 11 mmol/L 12-13 [facility] BUN/creatinine ratioOrdered By: Radha Damon on 11-18-2024 Urea nitrogen/Creatinine [Mass ratio] 13.7 mg/mg 05-20 [facility] Basic Metabolic Profile (BMP )on 11-18-2024 BUN/CRE 13.7 RATIO Normal 05-20 [facility] Comment on above: Performed By: #### L 500.2500, L100.0100 ####[facility] [address] [place], [address] Calcium [Mass/Vol] 8.9 mg/dL Normal 7.6-11.0 [facility] Comment on above: Performed By: #### L 500.2500, L100.0100 ####[facility] [address] [place], [address] Chloride [Moles/Vol] 95 mmol/L Low 98-108 [facility] Comment on above: Performed By: #### L 500.2500, L100.0100 ####[facility] [address] [place], [address] CO2 [Moles/Vol] 24.0 mmol/L Normal 21.0-32.0 [facility] Comment on above: Performed By: #### L 500.2500, L100.0100 ####[facility] [address] [place], [address] Creatinine [Mass/Vol] 1.02 mg/dL Normal 0.70-1.20 [facility] Comment on above: Performed By: #### L 500.2500, L100.0100 ####[facility] [address] [place], [address] ECRCL 54.00 ml/min Normal 50-250 [facility] Comment on above: Performed By: #### L 500.2500, L100.0100 ####[facility] [address] [place], [address] GAP 11 Normal 5-15 [facility] Comment on above: Performed By: #### L 500.2500, L100.0100 ####[facility] [address] [place], [address] GFR/1.73 sq M.predicted among non-blacks MDRD (S/P/Bld) [Vol rate/Area] 74 mL/min/{1.73_m2} Normal >60 [facility] Comment on above: Result Comment: mL/m in/1.73m2 CKD-EPI Creatinine Equation (2020) Performed By: #### L 500.2500, L100.0100 ####[facility] [address] [place], [address] Glucose [Mass/Vol] 104 mg/dL High 70-99 [facility] Comment on above: Performed By: #### L 500.2500, L100.0100 ####[facility] [address] [place], [address] Potassium [Moles/Vol] 4.1 mmol/L Normal 3.3-5.1 [facility] Comment on above: Performed By: #### L 500.2500, L100.0100 ####[facility] [address] [place], [address] Sodium [Moles/Vol] 130 mmol/L Low 133-145 [facility] Comment on above: Performed By: #### L 500.2500, L100.0100 ####[facility] [address] [place], [address] Urea nitrogen [Mass/Vol] 14 mg/dL Normal 4-19 [facility] Comment on above: Performed By: #### L 500.2500, L100.0100 ####[facility] [address] [place], [address] Basophil percentageOrdered B y: Radha Damon on 11-18-2024 Basophils/100 WBC (Bld) 0.3 % 0-1 [facility] CBC W/Diff, Automatedon 10-31 0-2024 Absolute Lymph 1.14 X10 3/uL Normal 0.83-4.51 [facility] Comment on above: Performed By: #### L 500.2500, L100.0100 ####[facility] [address] [place], [address] Absolute Neut 5.7 X10 3/uL Normal 2.0-7.7 [facility] Comment on above: Performed By: #### L 500.2500, L100.0100 ####[facility] [address] [place], [address] Basophils/100 WBC (Bld) 0.3 % Normal 0-1 [facility] Comment on above: Performed By: #### L 500.2500, L100.0100 ####[facility] [address] [place], [address] Eosinophils/100 WBC (Bld) 1.8 % Normal 0-5 [facility] Comment on above: Performed By: #### L 500.2500, L100.0100 ####[facility] [address] [place], [address] Erythrocyte distribution width (RBC) [Ratio] 12.4 % Normal 11.6-14.6 [facility] Comment on above: Performed By: #### L 500.2500, L100.0100 ####[facility] [address] [place], [address] Hematocrit (Bld) [Volume fraction] 29.1 % Low 40-54 [facility] Comment on above: Performed By: #### L 500.2500, L100.0100 ####[facility] [address] [place], [address] Hemoglobin (Bld) [Mass/Vol] 10.3 g/dL Low 13.0-16.5 [facility] Comment on above: Performed By: #### L 500.2500, L100.0100 ####[facility] [address] [place], [address] IG% 0.400 Normal 0.0-0.9 [facility] Comment on above: Result Comment: IG% - Immature Granulocytes (promyelocytes, myelocytes andmetamyelocytes) > 1% indicates that a LEFT SHIFT is Present. Performed By: #### L 500.2500, L100.0100 ####[facility] [address] [place], [address] Lymphocytes/100 WBC (Bld) 14.4 % Low 19-41 [facility] Comment on above: Performed By: #### L 500.2500, L100.0100 ####[facility] [address] [place], [address] MCH (RBC) [Entitic mass] 30.8 pg Normal 27.0-32.0 [facility] Comment on above: Performed By: #### L 500.2500, L100.0100 ####[facility] [address] [place], [address] MCHC (RBC) [Mass/Vol] 35.4 g/dL Normal 32-36 [facility] Comment on above: Performed By: #### L 500.2500, L100.0100 ####[facility] [address] [place], [address] MCV (RBC) [Entitic vol] 87.1 fL Normal 80-94 [facility] Comment on above: Performed By: #### L 500.2500, L100.0100 ####[facility] [address] [place], [address] Monocytes/100 WBC (Bld) 11.2 % High 0-10 [facility] Comment on above: Performed By: #### L 500.2500, L100.0100 ####[facility] [address] [place], [address] Neutrophils/100 WBC (Bld) 71.9 % High 47-70 [facility] Comment on above: Performed By: #### L 500.2500, L100.0100 ####[facility] [address] [place], [address] Nucleated RBC (Bld) [#/Vol] 0 10*3/uL Normal 0-5 [facility] Comment on above: Performed By: #### L 500.2500, L100.0100 ####[facility] [address] [place], [address] Platelet mean volume (Bld) [Entitic vol] 8.6 fL Normal 6.2-12.0 [facility] Comment on above: Performed By: #### L 500.2500, L100.0100 ####[facility] [address] [place], [address] Platelets (Bld) [#/Vol] 333 10*3/uL Normal 150-450 [facility] Comment on above: Performed By: #### L 500.2500, L100.0100 ####[facility] [address] [place], [address] RBC (Bld) [#/Vol] 3.34 10*6/uL Low 4.6-6.2 [facility] Comment on above: Performed By: #### L 500.2500, L100.0100 ####[facility] [address] [place], [address] RDW SD 39.8 fl Normal 35.1-43.9 [facility] Comment on above: Performed By: #### L 500.2500, L100.0100 ####[facility] [address] [place], [address] WBC (Bld) [#/Vol] 7.9 10*3/uL Normal 4.4-11.0 [facility] Comment on above: Performed By: #### L 500.2500, L100.0100 ####[facility] [address] [place], [address] Carbon dioxide, total [Moles /volume] in Central venous bloodOrdered By: Radha Damon on 11-18-2024 CO2 [Moles/Vol] 24.0 mmol/L 21.0-32.0 [facility] Chloride assayOrdered By: Marybel Damon on 11-18-2024 Chloride [Moles/Vol] 95 mmol/L Low 98-108 [facility] Emergency Department Summary on 11-18-2024 Emergency Department Summary Normal [facility] Eosinophil percentageOrdered By: Radha Damon on 11-18-2024 Eosinophils/100 WBC (Bld) 1.8 % 0-5 [facility] Erythrocyte distribution wid th (RBC) [Ratio]Ordered By: Radha Damon on 11-18-2024 Erythrocyte distribution width (RBC) [Entitic vol] 39.8 fL 35.1-43.9 [facility] Erythrocyte distribution wid th ratioOrdered By: Radha Damon on 11-18-2024 Erythrocyte distribution width (RBC) [Ratio] 12.4 % 11.6-14.6 [facility] Estimation of creatinine dunia aranceOrdered By: Radha Damon on 11-18-2024 Estimated Creatinine Clearance Calc 54.00 ml/min 50-250 [facility] GFR/1.73 sq M.predicted gregg g non-blacks MDRD (S/P/Bld) [Vol rate/Area]Ordered By: Radha Damon on 11-18-2024 Estimated GFR (MDRD) Non-Af Amer 74 >60 [facility] Comment on above: mL/min/1.73m2 CKD-EP I Creatinine Equation (2020) H AND P Exam - [facility] 11-18-2024 H&P Exam - Hospitalist Normal [facility] Hematocrit Auto (Bld) [Volum e fraction]Ordered By: Radha Damon on 11-18-2024 Hematocrit (Bld) [Volume fraction] 29.1 % Low 40-54 [facility] Hemoglobin measurementOrdere d By: Radha Damon on 11-18-2024 Hemoglobin (Bld) [Mass/Vol] 10.3 g/dL Low 13.0-16.5 [facility] Immature granulocytes/100 WB C Auto (Bld)Ordered By: Radha Damon on 11-18-2024 Immature granulocytes/100 WBC (Bld) 0.400 % 0.0-0.9 [facility] Comment on above: IG% - Immature Granu locytes (promyelocytes, myelocytes and metamyelocytes) > 1% indicates that a LEFT SHIFT is Present. Lymphocytes Auto (Unsp spec) [#/Vol]Ordered By: Radha Damon on 11-18-2024 Lymphocytes (Bld) [#/Vol] 1.14 10*3/uL 0.83-4.51 [facility] Lymphocytes/100 WBC Auto (Un sp spec)Ordered By: Radha Damon on 11-18-2024 Lymphocytes/100 WBC (Bld) 14.4 % Low 19-41 [facility] MCV (mean corpuscular volume ) determinationOrdered By: Radha Damon on 11-18-2024 MCV (RBC) [Entitic vol] 87.1 fL 80-94 [facility] Mean corpuscular hemoglobin (MCH) determinationOrdered By: Radha Damon on 11-18-2024 MCH (RBC) [Entitic mass] 30.8 pg 27.0-32.0 [facility] Mean corpuscular hemoglobin concentration (MCHC) determinationOrdered By: Rahda Damon on 11-18-2024 MCHC (RBC) [Mass/Vol] 35.4 g/dL 32-36 [facility] Mean platelet volume determi nationOrdered By: Radha Damon on 11-18-2024 Platelet mean volume (Bld) [Entitic vol] 8.6 fL 6.2-12.0 [facility] Monocyte percentageOrdered B y: Radha Damon on 11-18-2024 Monocytes/100 WBC (Bld) 11.2 % High 0-10 [facility] Neutrophil percentageOrdered By: Radha Damon on 11-18-2024 Neutrophils/100 WBC (Bld) 71.9 % High 47-70 [facility] Nucleated red blood cell per centageOrdered By: Radha Damon on 11-18-2024 Nucleated RBC/100 WBC (Bld) [Ratio] 0 % 0-5 [facility] Platelet countOrdered By: Marybel Damon on 11-18-2024 Platelets (Bld) [#/Vol] 333 10*3/uL 150-450 [facility] Potassium (Unsp spec) [Mass/ Vol]Ordered By: Radha Damon on 11-18-2024 Potassium [Moles/Vol] 4.1 mmol/L 3.3-5.1 [facility] RBC Auto (Bld) [#/Vol]Ordere d By: Radha Damon on 11-18-2024 RBC (Bld) [#/Vol] 3.34 10*6/uL Low 4.6-6.2 [facility] Serum creatinine measurement (mass/volume)Ordered By: Radha Damon on 11-18-2024 Creatinine [Mass/Vol] 1.02 mg/dL 0.70-1.20 [facility] Serum glucose measurement (m ass/volume)Ordered By: Radha Damon on 11-18-2024 Glucose [Mass/Vol] 104 mg/dL High 70-99 [facility] Serum or plasma calcium shagufta urement (mass/volume)Ordered By: Radha Damon on 11-18-2024 Calcium [Mass/Vol] 8.9 mg/dL 7.6-11.0 [facility] Serum or plasma urea nitroge n measurement (mass/volume)Ordered By: Radha Damon on 11-18-2024 Urea nitrogen [Mass/Vol] 14 mg/dL 4-19 [facility] Sodium levelOrdered By: Seth Damon on 11-18-2024 Sodium [Moles/Vol] 130 mmol/L Low 133-145 [facility] Type AND Screenon 11-18-2024 Ab SCREEN GEL Negative Normal [facility] Comment on above: Order Comment: HGI Performed By: #### B TS ####[facility] [address] [place], [place], [address] White blood cell (WBC) count Ordered By: Radha Damon on 11-18-2024 WBC (Bld) [#/Vol] 7.9 10*3/uL 4.4-11.0 [facility] [employer] Par[employer]ites 8623on OP Normal [facility] Comment on above: Performed By: #### M 100.0605, M100.6796, M100.637, M600.5000 ####[facility] [address] [place], [place], [address] 12 Lead EKGon 11-07-2024 12 Lead EKG Normal [facility] Absolute lymphocyte countOrd ered By: Stevie Harrington on 11-07-2024 Lymphocytes Auto (Unsp spec) [#/Vol] 0.91 10*3/uL 0.83-4.51 [facility] Absolute neutrophil countOrd ered By: Stevie Harrington on 11-07-2024 Neutrophils (Bld) [#/Vol] 4.3 10*3/uL 2.0-7.7 [facility] Anion gap in Serum or Plasma Ordered By: Stevie Harrington on 11-07-2024 Anion gap [Moles/Vol] 14 mmol/L 5-15 [facility] Automated lymphocyte count a s percentage of total leukocytesOrdered By: Stevie Harrington on 11-07-2024 Lymphocytes/100 WBC Auto (Unsp spec) 14.8 % Low 19-41 [facility] BUN/creatinine ratioOrdered By: Stevie Harrington on 11-07-2024 Urea nitrogen/Creatinine [Mass ratio] 16.0 mg/mg 10- [facility] Basic Metabolic Profile (BMP )on 11-07-2024 BUN/CRE 16.0 RATIO Normal 10- [facility] Comment on above: Performed By: #### L 500.2500, L100.0100 ####[facility] [address] [place], [address] Calcium [Mass/Vol] 8.6 mg/dL Normal 7.6-11.0 [facility] Comment on above: Performed By: #### L 500.2500, L100.0100 ####[facility] [address] [place], [address] Chloride [Moles/Vol] 96 mmol/L Low 98-108 [facility] Comment on above: Performed By: #### L 500.2500, L100.0100 ####[facility] [address] [place], [address] CO2 [Moles/Vol] 18.1 mmol/L Low 21.0-32.0 [facility] Comment on above: Performed By: #### L 500.2500, L100.0100 ####[facility] [address] [place], [address] Creatinine [Mass/Vol] 1.02 mg/dL Normal 0.70-1.20 [facility] Comment on above: Performed By: #### L 500.2500, L100.0100 ####[facility] [address] [place], [address] ECRCL 54.00 ml/min Normal 50-250 [facility] Comment on above: Performed By: #### L 500.2500, L100.0100 ####[facility] [address] [place], [address] GAP 14 Normal 5-15 [facility] Comment on above: Performed By: #### L 500.2500, L100.0100 ####[facility] [address] [place], [address] GFR/1.73 sq M.predicted among non-blacks MDRD (S/P/Bld) [Vol rate/Area] 74 mL/min/{1.73_m2} Normal >60 [facility] Comment on above: Result Comment: mL/m in/1.73m2 CKD-EPI Creatinine Equation (2020) Performed By: #### L 500.2500, L100.0100 ####[facility] [address] [place], [address] Glucose [Mass/Vol] 92 mg/dL Normal 70-99 [facility] Comment on above: Performed By: #### L 500.2500, L100.0100 ####[facility] [address] [place], [address] Potassium [Moles/Vol] 3.8 mmol/L Normal 3.3-5.1 [facility] Comment on above: Performed By: #### L 500.2500, L100.0100 ####[facility] [address] [place], [address] Sodium [Moles/Vol] 128 mmol/L Low 133-145 [facility] Comment on above: Performed By: #### L 500.2500, L100.0100 ####[facility] [address] [place], [address] Urea nitrogen [Mass/Vol] 16 mg/dL Normal 4-19 [facility] Comment on above: Performed By: #### L 500.2500, L100.0100 ####[facility] [address] [place], [address] Basophil percentageOrdered B y: Stevie Harrington on 11-07-2024 Basophils/100 WBC (Bld) 0.5 % 0-1 [facility] CBC W/Diff, Automatedon Absolute Lymph 0.91 X10 3/uL Normal 0.83-4.51 [facility] Comment on above: Performed By: #### L 500.2500, L100.0100 ####[facility] [address] [place], [address] Absolute Neut 4.3 X10 3/uL Normal 2.0-7.7 [facility] Comment on above: Performed By: #### L 500.2500, L100.0100 ####[facility] [address] [place], [address] Basophils/100 WBC (Bld) 0.5 % Normal 0-1 [facility] Comment on above: Performed By: #### L 500.2500, L100.0100 ####[facility] [address] [place], [address] Eosinophils/100 WBC (Bld) 1.3 % Normal 0-5 [facility] Comment on above: Performed By: #### L 500.2500, L100.0100 ####[facility] [address] [place], [address] Erythrocyte distribution width (RBC) [Ratio] 12.3 % Normal 11.6-14.6 [facility] Comment on above: Performed By: #### L 500.2500, L100.0100 ####[facility] [address] [place], [address] Hematocrit (Bld) [Volume fraction] 34.0 % Low 40-54 [facility] Comment on above: Performed By: #### L 500.2500, L100.0100 ####[facility] [address] [place], [address] Hemoglobin (Bld) [Mass/Vol] 11.9 g/dL Low 13.0-16.5 [facility] Comment on above: Performed By: #### L 500.2500, L100.0100 ####[facility] [address] [place], [address] IG% 0.500 Normal 0.0-0.9 [facility] Comment on above: Result Comment: IG% - Immature Granulocytes (promyelocytes, myelocytes andmetamyelocytes) > 1% indicates that a LEFT SHIFT is Present. Performed By: #### L 500.2500, L100.0100 ####[facility] [address] [place], [address] Lymphocytes/100 WBC (Bld) 14.8 % Low 19-41 [facility] Comment on above: Performed By: #### L 500.2500, L100.0100 ####[facility] [address] [place], [address] MCH (RBC) [Entitic mass] 30.6 pg Normal 27.0-32.0 [facility] Comment on above: Performed By: #### L 500.2500, L100.0100 ####[facility] [address] [place], [address] MCHC (RBC) [Mass/Vol] 35.0 g/dL Normal 32-36 [facility] Comment on above: Performed By: #### L 500.2500, L100.0100 ####[facility] [address] [place], [address] MCV (RBC) [Entitic vol] 87.4 fL Normal 80-94 [facility] Comment on above: Performed By: #### L 500.2500, L100.0100 ####[facility] [address] [place], [address] Monocytes/100 WBC (Bld) 12.5 % High 0-10 [facility] Comment on above: Performed By: #### L 500.2500, L100.0100 ####[facility] [address] [place], [address] Neutrophils/100 WBC (Bld) 70.4 % High 47-70 [facility] Comment on above: Performed By: #### L 500.2500, L100.0100 ####[facility] [address] [place], [address] Nucleated RBC (Bld) [#/Vol] 0 10*3/uL Normal 0-5 [facility] Comment on above: Performed By: #### L 500.2500, L100.0100 ####[facility] [address] [place], [address] Platelet mean volume (Bld) [Entitic vol] 9.3 fL Normal 6.2-12.0 [facility] Comment on above: Performed By: #### L 500.2500, L100.0100 ####[facility] [address] [place], [address] Platelets (Bld) [#/Vol] 285 10*3/uL Normal 150-450 [facility] Comment on above: Performed By: #### L 500.2500, L100.0100 ####[facility] [address] [place], [address] RBC (Bld) [#/Vol] 3.89 10*6/uL Low 4.6-6.2 [facility] Comment on above: Performed By: #### L 500.2500, L100.0100 ####[facility] [address] [place], [address] RDW SD 39.5 fl Normal 35.1-43.9 [facility] Comment on above: Performed By: #### L 500.2500, L100.0100 ####[facility] [address] [place], [place], [address] WBC (Bld) [#/Vol] 6.2 10*3/uL Normal 4.4-11.0 [facility] Comment on above: Performed By: #### L 500.2500, L100.0100 ####[facility] [address] [facility] [place], [address] Carbon dioxide, total [Moles /volume] in Central venous bloodOrdered By: Stevie Harrington on 11-07-2024 CO2 [Moles/Vol] 18.1 mmol/L Low 21.0-32.0 [facility] Chloride assayOrdered By: Brant Harrington on 11-07-2024 Chloride [Moles/Vol] 96 mmol/L Low 98-108 [facility] Electrocardiogram reportOrde red By: Adrian Flores on 11-07-2024 EKG study [facility] [address] [place] [address] 12 Lead EKG 11/07/24 0553 MR#: [id number] Acct: [id number] Name: JARED RAYMOND Rep #:[id number] : 1945 79 From: Adrian Flores MD [...] was found Confirmed by ADRIAN FLORES MD ([id number]), mapping editor ELIZ LOPEZ ([id number]) on 11/07/2024 1:45:42 PM Referred By: Confirmed By: ADRIAN FLORES MD 11/07/24 1345 Date _ Adrian Flores MD CC: [employer]-C Mariela Olson; Dr. Steven Ann MD; Dr. Stevie Harrington, DO ~ Signed [facility] Work Phone: Eosinophil percentageOrdered By: Stevie Harrington on 11-07-2024 Eosinophils/100 WBC (Bld) 1.3 % 0-5 [facility] Erythrocyte distribution wid th (RBC) [Ratio]Ordered By: Stevie Harrington on 11-07-2024 Erythrocyte distribution width (RBC) [Entitic vol] 39.5 fL 35.1-43.9 [facility] Erythrocyte distribution wid th ratioOrdered By: Stevie Harrington on 11-07-2024 Erythrocyte distribution width (RBC) [Ratio] 12.3 % 11.6-14.6 [facility] Erythrocyte distribution wid th standard deviationOrdered By: Stevie Harrington on 11-07-2024 Erythrocyte distribution width (RBC) [Ratio] 39.5 fl 35.1-43.9 [facility] Estimation of creatinine dunia aranceOrdered By: Stevie Harrington on 11-07-2024 Estimated Creatinine Clearance Calc 54.00 ml/min 50-250 [facility] GFR/1.73 sq M.predicted gregg g non-blacks MDRD (S/P/Bld) [Vol rate/Area]Ordered By: Stevie Harrington on 11-07-2024 Estimated GFR (MDRD) Non-Af Amer 74 >60 [facility] Comment on above: mL/min/1.73m2 CKD-EP I Creatinine Equation (2020) Glomerular filtration rate ( GFR) estimation/1.73 sq m using serum, plasma, or whole bOrdered By: Stevie Harrington on 11-07-2024 GFR/1.73 sq M.predicted among non-blacks MDRD (S/P/Bld) [Vol rate/Area] 74 mL/min/{1.73_m2} >60 [facility] Comment on above: mL/min/1.73m2 CKD-EP I Creatinine Equation (2020) Hematocrit Auto (Bld) [Volum e fraction]Ordered By: Stevie Harrington on 11-07-2024 Hematocrit (Bld) [Volume fraction] 34.0 % Low 40-54 [facility] Hemoglobin measurementOrdere d By: Stevie Harrington on 11-07-2024 Hemoglobin (Bld) [Mass/Vol] 11.9 g/dL Low 13.0-16.5 [facility] Immature granulocytes/100 WB C Auto (Bld)Ordered By: Stevie Harrington on 11-07-2024 Immature granulocytes/100 WBC (Bld) 0.500 % 0.0-0.9 [facility] Comment on above: IG% - Immature Granu locytes (promyelocytes, myelocytes and metamyelocytes) > 1% indicates that a LEFT SHIFT is Present. Lymphocytes Auto (Unsp spec) [#/Vol]Ordered By: Stevie Harrington on 11-07-2024 Lymphocytes (Bld) [#/Vol] 0.91 10*3/uL 0.83-4.51 [facility] Lymphocytes/100 WBC Auto (Un sp spec)Ordered By: Stevie Harrington on 11-07-2024 Lymphocytes/100 WBC (Bld) 14.8 % Low 19-41 [facility] MCV (mean corpuscular volume ) determinationOrdered By: Stevie Harrington on 11-07-2024 MCV (RBC) [Entitic vol] 87.4 fL 80-94 [facility] Mean corpuscular hemoglobin (MCH) determinationOrdered By: Stevie Harrington on 11-07-2024 MCH (RBC) [Entitic mass] 30.6 pg 27.0-32.0 [facility] Mean corpuscular hemoglobin concentration (MCHC) determinationOrdered By: Stevie Harrington on 11-07-2024 MCHC (RBC) [Mass/Vol] 35.0 g/dL 32-36 [facility] Mean platelet volume determi nationOrdered By: Stevie Harrington on 11-07-2024 Platelet mean volume (Bld) [Entitic vol] 9.3 fL 6.2-12.0 [facility] Monocyte percentageOrdered B y: Stevie Harrington on 11-07-2024 Monocytes/100 WBC (Bld) 12.5 % High 0-10 [facility] Neutrophil percentageOrdered By: Stevie Harrington on 11-07-2024 Neutrophils/100 WBC (Bld) 70.4 % High 47-70 [facility] Nucleated red blood cell per centageOrdered By: Stevie Harrington on 11-07-2024 Nucleated RBC/100 WBC (Bld) [Ratio] 0 % 0-5 [facility] Platelet countOrdered By: Brant Harrington on 11-07-2024 Platelets (Bld) [#/Vol] 285 10*3/uL 150-450 [facility] Potassium (Unsp spec) [Mass/ Vol]Ordered By: Stevie Harrington on 11-07-2024 Potassium [Moles/Vol] 3.8 mmol/L 3.3-5.1 [facility] Potassium measurement (mass/ volume)Ordered By: Stevie Harrington on 11-07-2024 Potassium (Unsp spec) [Mass/Vol] 3.8 mmol/L 3.3-5.1 [facility] RBC Auto (Bld) [#/Vol]Ordere d By: Stevie Harrington on 11-07-2024 RBC (Bld) [#/Vol] 3.89 10*6/uL Low 4.6-6.2 [facility] Serum creatinine measurement (mass/volume)Ordered By: Stevie Harrington on 11-07-2024 Creatinine [Mass/Vol] 1.02 mg/dL 0.70-1.20 [facility] Serum glucose measurement (m ass/volume)Ordered By: Stevie Harrington on 11-07-2024 Glucose [Mass/Vol] 92 mg/dL 70-99 [facility] Serum or plasma calcium shagufta urement (mass/volume)Ordered By: Stevie Harrington on 11-07-2024 Calcium [Mass/Vol] 8.6 mg/dL 7.6-11.0 [facility] Serum or plasma urea nitroge n measurement (mass/volume)Ordered By: Stevie Harrington on 11-07-2024 Urea nitrogen [Mass/Vol] 16 mg/dL 4-19 [facility] Sodium levelOrdered By: Stevie Harrington on 11-07-2024 Sodium [Moles/Vol] 128 mmol/L Low 133-145 [facility] White blood cell (WBC) count Ordered By: Stevie Harrington on 11-07-2024 WBC (Bld) [#/Vol] 6.2 10*3/uL 4.4-11.0 [facility] Bilirubin, totalOrdered By: Darrel Sanders on 11-06-2024 Bilirubin [Mass/Vol] 0.64 mg/dL 0.00-1.30 [facility] C. difficile DNA BLESSING+probe Q l (Unsp spec)Ordered By: Darrel Sanders on 11-06-2024 Clostridioides difficile (PCR) [facility] CBC W/Diff, Automatedon Absolute Lymph 0.59 X10 3/uL Low 0.83-4.51 [facility] [facility] Comment on above: Performed By: #### L 100.0100 ####[facility] [address] [place], [address] Absolute Neut 5.0 X10 3/uL Normal 2.0-7.7 [facility] Comment on above: Performed By: #### L 100.0100 ####[facility] [address] [place], [address] Basophils/100 WBC (Bld) 0.3 % Normal 0-1 [facility] Comment on above: Performed By: #### L 100.0100 ####[facility] [address] [place], [address] Eosinophils/100 WBC (Bld) 0.3 % Normal 0-5 [facility] Comment on above: Performed By: #### L 100.0100 ####[facility] [address] [place], [address] Erythrocyte distribution width (RBC) [Ratio] 12.3 % Normal 11.6-14.6 [facility] Comment on above: Performed By: #### L 100.0100 ####[facility] [address] [place], [address] Hematocrit (Bld) [Volume fraction] 33.9 % Low 40-54 [facility] Comment on above: Performed By: #### L 100.0100 ####[facility] [address] [place], [address] Hemoglobin (Bld) [Mass/Vol] 11.9 g/dL Low 13.0-16.5 [facility] Comment on above: Performed By: #### L 100.0100 ####[facility] [address] [place], [address] IG% 0.300 Normal 0.0-0.9 [facility] Comment on above: Result Comment: IG% - Immature Granulocytes (promyelocytes, myelocytes andmetamyelocytes) > 1% indicates that a LEFT SHIFT is Present. Performed By: #### L 100.0100 ####[facility] [address] [place], [address] Lymphocytes/100 WBC (Bld) 9.1 % Low 19-41 [facility] Comment on above: Performed By: #### L 100.0100 ####[facility] [address] [place], [address] MCH (RBC) [Entitic mass] 31.1 pg Normal 27.0-32.0 [facility] Comment on above: Performed By: #### L 100.0100 ####[facility] [address] [place], [address] MCHC (RBC) [Mass/Vol] 35.1 g/dL Normal 32-36 [facility] Comment on above: Performed By: #### L 100.0100 ####[facility] [address] [place], [address] MCV (RBC) [Entitic vol] 88.5 fL Normal 80-94 [facility] Comment on above: Performed By: #### L 100.0100 ####[facility] [address] [place], [address] Monocytes/100 WBC (Bld) 11.9 % High 0-10 [facility] Comment on above: Performed By: #### L 100.0100 ####[facility] [address] [place], [address] Neutrophils/100 WBC (Bld) 78.1 % High 47-70 [facility] Comment on above: Performed By: #### L 100.0100 ####[facility] [address] [place], [address] Nucleated RBC (Bld) [#/Vol] 0 10*3/uL Normal 0-5 [facility] Comment on above: Performed By: #### L 100.0100 ####[facility] [address] [place], [address] Platelet mean volume (Bld) [Entitic vol] 9.1 fL Normal 6.2-12.0 [facility] Comment on above: Performed By: #### L 100.0100 ####[facility] [address] [place], [address] Platelets (Bld) [#/Vol] 290 10*3/uL Normal 150-450 [facility] Comment on above: Performed By: #### L 100.0100 ####[facility] [address] [place], [address] RBC (Bld) [#/Vol] 3.83 10*6/uL Low 4.6-6.2 [facility] Comment on above: Performed By: #### L 100.0100 ####[facility] [address] [place], [address] RDW SD 39.8 fl Normal 35.1-43.9 [facility] Comment on above: Performed By: #### L 100.0100 ####[facility] [address] [place], [address] WBC (Bld) [#/Vol] 6.5 10*3/uL Normal 4.4-11.0 [facility] Comment on above: Performed By: #### L 100.0100 ####[facility] [address] [place], [address] Absolute Lymph 1.08 X10 3/uL Normal 0.83-4.51 [facility] Comment on above: Performed By: #### L 501.2300, L100.0100, L500.4050 ####[facility] [address] [place], [address] Absolute Neut 5.9 X10 3/uL Normal 2.0-7.7 [facility] Comment on above: Performed By: #### L 501.2300, L100.0100, L500.4050 ####[facility] [address] [place], [address] Basophils/100 WBC (Bld) 0.3 % Normal 0-1 [facility] Comment on above: Performed By: #### L 501.2300, L100.0100, L500.4050 ####[facility] [address] [place], [address] Eosinophils/100 WBC (Bld) 1.4 % Normal 0-5 [facility] Comment on above: Performed By: #### L 501.2300, L100.0100, L500.4050 ####[facility] [address] [place], [address] Erythrocyte distribution width (RBC) [Ratio] 12.2 % Normal 11.6-14.6 [facility] Comment on above: Performed By: #### L 501.2300, L100.0100, L500.4050 ####[facility] [address] [place], [address] Hematocrit (Bld) [Volume fraction] 35.2 % Low 40-54 [facility] Comment on above: Performed By: #### L 501.2300, L100.0100, L500.4050 ####[facility] [address] [place], [address] Hemoglobin (Bld) [Mass/Vol] 12.3 g/dL Low 13.0-16.5 [facility] Comment on above: Performed By: #### L 501.2300, L100.0100, L500.4050 ####[facility] [address] [place], [address] IG% 0.300 Normal 0.0-0.9 [facility] Comment on above: Result Comment: IG% - Immature Granulocytes (promyelocytes, myelocytes andmetamyelocytes) > 1% indicates that a LEFT SHIFT is Present. Performed By: #### L 501.2300, L100.0100, L500.4050 ####[facility] [address] [place], [address] Lymphocytes/100 WBC (Bld) 13.7 % Low 19-41 [facility] Comment on above: Performed By: #### L 501.2300, L100.0100, L500.4050 ####[facility] [address] [place], [address] MCH (RBC) [Entitic mass] 30.4 pg Normal 27.0-32.0 [facility] Comment on above: Performed By: #### L 501.2300, L100.0100, L500.4050 ####[facility] [address] [place], [address] MCHC (RBC) [Mass/Vol] 34.9 g/dL Normal 32-36 [facility] Comment on above: Performed By: #### L 501.2300, L100.0100, L500.4050 ####[facility] [address] [place], [address] MCV (RBC) [Entitic vol] 87.1 fL Normal 80-94 [facility] Comment on above: Performed By: #### L 501.2300, L100.0100, L500.4050 ####[facility] [address] [place], [address] Monocytes/100 WBC (Bld) 9.8 % Normal 0-10 [facility] Comment on above: Performed By: #### L 501.2300, L100.0100, L500.4050 ####[facility] [address] [place], [address] Neutrophils/100 WBC (Bld) 74.5 % High 47-70 [facility] Comment on above: Performed By: #### L 501.2300, L100.0100, L500.4050 ####[facility] [address] [place], [address] Nucleated RBC (Bld) [#/Vol] 0 10*3/uL Normal 0-5 [facility] Comment on above: Performed By: #### L 501.2300, L100.0100, L500.4050 ####[facility] [address] [place], [address] Platelet mean volume (Bld) [Entitic vol] 8.7 fL Normal 6.2-12.0 [facility] Comment on above: Performed By: #### L 501.2300, L100.0100, L500.4050 ####[facility] [address] [place], [address] Platelets (Bld) [#/Vol] 303 10*3/uL Normal 150-450 [facility] Comment on above: Performed By: #### L 501.2300, L100.0100, L500.4050 ####[facility] [address] [place], [address] RBC (Bld) [#/Vol] 4.04 10*6/uL Low 4.6-6.2 [facility] Comment on above: Performed By: #### L 501.2300, L100.0100, L500.4050 ####[facility] [address] [place], [address] RDW SD 39.1 fl Normal 35.1-43.9 [facility] Comment on above: Performed By: #### L 501.2300, L100.0100, L500.4050 ####[facility] [address] [place], [address] WBC (Bld) [#/Vol] 7.9 10*3/uL Normal 4.4-11.0 [facility] Comment on above: Performed By: #### L 501.2300, L100.0100, L500.4050 ####[facility] [address] [place], [address] CDIFF (PCR)on 11-06-2024 CDIFF Is the patient recei ving laxatives? N New/unexplained onset of 3 or more stools in past 24 hrs? Y 027 027 NAP1-B1 Presumptive Negative *for epidemiolologic???use C. Diff PCR Negative- No toxigenic C. Diff Detected Normal [facility] Comment on above: Performed By: #### M 100.0605, M100.6796, M100.637, M600.5000 ####[facility] [address] [place], [address] Calculated total iron bindin g capacityOrdered By: Darrel Sanders on 11-06-2024 Total Iron Binding Capacity 270 ug/dL 250-450 [facility] Clostridium difficile detect ion by polymerase chain reactionOrdered By: Darrel Sanders on 11-06-2024 C. difficile DNA BLESSING+probe Ql (Unsp spec) [facility] Colonoscopy Reporton 025 Colonoscopy Report Normal [facility] Comprehensive Metabolic Prof ilon 11-06-2024 Albumin [Mass/Vol] 3.9 g/dL Normal 3.4-4.8 [facility] Comment on above: Performed By: #### L 501.2300, L100.0100, L500.4050 ####[facility] [address] [place], [address] Albumin/Globulin [Mass ratio] 1.4 {ratio} Normal 0.9-2.4 [facility] Comment on above: Performed By: #### L 501.2300, L100.0100, L500.4050 ####[facility] [address] [place], [address] ALK PHOS 101 U/L Normal 40-129 [facility] Comment on above: Performed By: #### L 501.2300, L100.0100, L500.4050 ####[facility] [address] [place], [address] ALT [Catalytic activity/Vol] 14 U/L Normal <=46 [facility] Comment on above: Performed By: #### L 501.2300, L100.0100, L500.4050 ####[facility] [address] [place], [address] AST [Catalytic activity/Vol] 22 U/L Normal <=37 [facility] Comment on above: Performed By: #### L 501.2300, L100.0100, L500.4050 ####[facility] [address] [place], [address] Bilirubin [Mass/Vol] 0.64 mg/dL Normal 0.00-1.30 [facility] Comment on above: Performed By: #### L 501.2300, L100.0100, L500.4050 ####[facility] [address] [place], [address] BUN/CRE 14.4 RATIO Normal 10-20 [facility] Comment on above: Performed By: #### L 501.2300, L100.0100, L500.4050 ####[facility] [address] [place], [address] Calcium [Mass/Vol] 8.8 mg/dL Normal 7.6-11.0 [facility] Comment on above: Performed By: #### L 501.2300, L100.0100, L500.4050 ####[facility] [address] [place], [address] Chloride [Moles/Vol] 96 mmol/L Low 98-108 [facility] Comment on above: Performed By: #### L 501.2300, L100.0100, L500.4050 ####[facility] [address] [place], [address] CO2 [Moles/Vol] 21.7 mmol/L Normal 21.0-32.0 [facility] Comment on above: Performed By: #### L 501.2300, L100.0100, L500.4050 ####[facility] [address] [place], [address] Creatinine [Mass/Vol] 0.97 mg/dL Normal 0.70-1.20 [facility] Comment on above: Performed By: #### L 501.2300, L100.0100, L500.4050 ####[facility] [address] [place], [address] ECRCL 56.79 ml/min Normal 50-250 [facility] Comment on above: Performed By: #### L 501.2300, L100.0100, L500.4050 ####[facility] [address] [place], [address] GAP 12 Normal 5-15 [facility] Comment on above: Performed By: #### L 501.2300, L100.0100, L500.4050 ####[facility] [address] [place], [address] GFR/1.73 sq M.predicted among non-blacks MDRD (S/P/Bld) [Vol rate/Area] 79 mL/min/{1.73_m2} Normal >60 [facility] Comment on above: Result Comment: mL/m in/1.73m2 CKD-EPI Creatinine Equation (2020) Performed By: #### L 501.2300, L100.0100, L500.4050 ####[facility] [address] [place], [address] Globulin (S) [Mass/Vol] 2.8 g/dL Normal 2.2-4.2 [facility] Comment on above: Performed By: #### L 501.2300, L100.0100, L500.4050 ####[facility] [address] [place], [address] Glucose [Mass/Vol] 99 mg/dL Normal 70-99 [facility] Comment on above: Performed By: #### L 501.2300, L100.0100, L500.4050 ####[facility] [address] [place], [address] Potassium [Moles/Vol] 4.1 mmol/L Normal 3.3-5.1 [facility] Comment on above: Performed By: #### L 501.2300, L100.0100, L500.4050 ####[facility] [address] [place], [address] Sodium [Moles/Vol] 130 mmol/L Low 133-145 [facility] Comment on above: Performed By: #### L 501.2300, L100.0100, L500.4050 ####[facility] [address] [place], [address] T PROT 6.7 g/dL Normal 5.9-8.4 [facility] Comment on above: Performed By: #### L 501.2300, L100.0100, L500.4050 ####[facility] [address] [place], [address] Urea nitrogen [Mass/Vol] 14 mg/dL Normal 4-19 [facility] Comment on above: Performed By: #### L 501.2300, L100.0100, L500.4050 ####[facility] [address] [place], [address] ENTERIC PATHOGEN PANEL STOOL on 11-06-2024 EP PANEL Normal [facility] Comment on above: Performed By: #### M 100.0605, M100.6796, M100.637, M600.5000 ####[facility] [address] [place], [address] Emergency Department Summary on 11-06-2024 Emergency Department Summary Normal [facility] Ferritinon 11-06-2024 Ferritin [Mass/Vol] 138 ng/mL Normal 37-417 [facility] Comment on above: Performed By: #### L 501.9520, L503.6550, L503.0106, L503.6030, L501.7300 ####[facility] [address] [place], [address] H AND P Exam - Hospitaliston 11-06-2024 H&P Exam - Hospitalist Normal [facility] Iron (Unsp spec) [Mass/Mass] Ordered By: Darrel Sanders on 11-06-2024 Iron [Mass/Vol] 50 ug/dL Low 65-175 [facility] Iron measurement (mass/mass) Ordered By: Darrel Sanders on 11-06-2024 Iron (Unsp spec) [Mass/Mass] 50 ug/dL Low 65-175 [facility] Iron saturation [Mass fracti on]Ordered By: Darrel Sanders on 11-06-2024 Iron Saturation 19.0 % 9-55 [facility] Iron+Iron Binding Capacityon 11-06-2024 Iron [Mass/Vol] 50 ug/dL Low 65-175 [facility] Comment on above: Performed By: #### L 501.9520, L503.6550, L503.0106, L503.6030, L501.7300 ####[facility] [address] [place], [address] IRON SATURATION 19.0 Normal 9-55 [facility] Comment on above: Performed By: #### L 501.9520, L503.6550, L503.0106, L503.6030, L501.7300 ####[facility] [address] [place], [address] TIBC 270 ug/dL Normal 250-450 [facility] Comment on above: Performed By: #### L 501.9520, L503.6550, L503.0106, L503.6030, L501.7300 ####[facility] [address] [place], [address] UIBC 220 ug/dL Low 228-428 [facility] Comment on above: Performed By: #### L 501.9520, L503.6550, L503.0106, L503.6030, L501.7300 ####[facility] [address] [place], [address] L499.0042on 11-06-2024 Trop T High Sen 23 ng/L High <=22 [facility] Comment on above: Performed By: #### L 499.0042 ####[facility] [address] [place], [address] L499.0043on 11-06-2024 Trop T High Sen 19 ng/L Normal <=22 [facility] Comment on above: Performed By: #### L 499.0043 ####[facility] [address] [place], [address] L501.4021on 11-06-2024 Trop T High Sen 18 ng/L Normal <=22 [facility] Comment on above: Performed By: #### L 501.4021 ####[facility] [address] [place], [address] Laboratory - Chemistry and C hemistry - challengeOrdered By: Darrel Sanders on 11-06-2024 AST [Catalytic activity/Vol] 22 U/L <38 [facility] Lactoferrin IA Ql (Stl)Order ed By: Darrel Sanders on 11-06-2024 Stool Lactoferrin [facility] MR/CON.PCM.GIon 11-06-2024 MR/CON.PCM.GI Normal [facility] MR/POSTOP.ANEon 11-06-2024 MR/POSTOP.ANE Normal [facility] MR/SDILMLXR9dq 11-06-2024 MR/POSTOPAN2 Normal [facility] Magnesiumon 11-06-2024 Magnesium [Mass/Vol] 2.3 mg/dL High 1.5-2.2 [facility] Comment on above: Performed By: #### L 501.5200 ####[facility] [address] [place], [address] No Panel InformationOrdered By: Darrel Sanders on 11-06-2024 Unsaturated Iron Binding Capacity 220 ug/dL Low 228-428 [facility] 22 U/L <38 [facility] 220 ug/dL Low 228-428 [facility] Osmolality (U) [Osmolality]O rdered By: Darrel Sanders on 11-06-2024 Urine Osmolality 363 mOsm/KG >50 [facility] Comment on above: Normal Urine Referen ce Ranges Random: 50 - 1200 mOsm/kg H20 depending on fluid intake Random: >850 mOsm/kg after 12 hour fluid restriction 24 hour: ~300 - 900 mOsm/kg H2O Osmolality urOrdered By: Esdras Sanders on 11-06-2024 Osmolality (U) [Osmolality] 363 mOsm/KG >50 [facility] Comment on above: Normal Urine Referen ce Ranges Random: 50 - 1200 mOsm/kg H20 depending on fluid intake Random: >850 mOsm/kg after 12 hour fluid restriction 24 hour: ~300 - 900 mOsm/kg H2O Osmolality, Serumon 11-07-19 25 OSMOLALITY,SER 279 mOsm/KG Low 280-301 [facility] Comment on above: Performed By: #### L 501.9520, L503.6550, L503.0106, L503.6030, L501.7300 ####[facility] [address] [place], [address] Osmolality, Urineon 11-07-19 25 OSMOLALITY,UR 363 mOsm/KG Normal [facility] Comment on above: Result Comment: Norm al Urine Reference Ranges Random: 50 - 1200 mOsm/kg H20 depending on fluid intake Random: >850 mOsm/kg after 12 hour fluid restriction 24 hour: 300 - 900 mOsm/kg H2O Performed By: #### L 501.7400 ####[facility] [address] [place], [place], [address] Osmolality, serumOrdered By: Darrel Sanders on 11-06-2024 Serum Osmolality 279 mOsm/KG Low 280-301 [facility] Ova and parasitesOrdered By: Darrel Sanders on 11-06-2024 Ova and Parasites [facility] Phosphoruson 11-06-2024 Phosphate [Mass/Vol] 2.6 mg/dL Low 2.7-4.5 [facility] Comment on above: Performed By: #### L 501.2300, L100.0100, L500.4050 ####[facility] [address] [place], [place], [address] Serum globulin measurementOr dered By: Darrel Sanders on 11-06-2024 Globulin (S) [Mass/Vol] 2.8 g/dL 2.2-4.2 [facility] Serum or plasma alanine carrion otransferase (ALT) measurementOrdered By: Darrel Sanders on 11-06-2024 ALT [Catalytic activity/Vol] 14 U/L <47 [facility] Serum or plasma albumin shagufta urement (mass/volume)Ordered By: Darrel Sanders on 11-06-2024 Albumin [Mass/Vol] 3.9 g/dL 3.4-4.8 [facility] Serum or plasma albumin/glob ulin mass ratioOrdered By: Darrel Sanders on 11-06-2024 Albumin/Globulin [Mass ratio] 1.4 {ratio} 0.9-2.4 [facility] Serum or plasma alkaline airam sphatase measurementOrdered By: Darrel Sanders on 11-06-2024 ALP [Catalytic activity/Vol] 101 U/L 40-129 [facility] Serum or plasma ferritin francy surement (mass/volume)Ordered By: Darrel Sanders on 11-06-2024 Ferritin [Mass/Vol] 138 ng/mL 37-417 [facility] Serum or plasma iron saturat ion measurement (mass fraction)Ordered By: Darrel Sanders on 11-06-2024 Iron saturation [Mass fraction] 19.0 % 9-55 [facility] Serum phosphorus measurement Ordered By: Darrel Sanders on 11-06-2024 Phosphorus Level 2.6 mg/dL Low 2.7-4.5 [facility] Stool Lactoferrin/WBCon 04-0 WBCST Is the patient recei ving laxatives? N New/unexplained onset of 3 or more stools in past 24 hrs? Y Normal Reference Range = Negative Fecal WBC Lactoferrin A Positive: Fecal WBC Lactoferrin present A Normal [facility] Comment on above: Performed By: #### M 100.0605, M100.6796, M100.637, M600.5000 ####[facility] [address] [place], [address] Stool Occult Blood iFOBon STOB Positive Normal [facility] Comment on above: Performed By: #### B TS, L503.6005, L500.2500, M100.7900, L300.4310, L100.0100, L300.3900 ####[facility] [address] [place], [address] Stool enteric pathogen panel by probe and target amplification methodOrdered By: Darrel Sanders on 11-06-2024 Enteric Bacteriology [facility] Stool lactoferrin detection by immunoassayOrdered By: Darrel Sanders on 11-06-2024 Lactoferrin IA Ql (Stl) [facility] TSH DL <= 0.005 mIU/L QnOrde red By: Darrel Sanders on 11-06-2024 Thyroid Stimulating Hormone (TSH) 1.900 uIU/mL 0.300-4.200 [facility] TSH Qn 1.900 uIU/mL 0.300-4.200 [facility] Thyroid Stim Hormone (TSH)on 11-06-2024 TSH 1.900 uIU/mL Normal 0.300-4.200 [facility] Comment on above: Performed By: #### L 501.9520, L503.6550, L503.0106, L503.6030, L501.7300 ####[facility] [address] [place], [address] Total proteinOrdered By: Esdras Sanders on 11-06-2024 Protein [Mass/Vol] 6.7 g/dL 5.9-8.4 [facility] Troponin T.cardiac High sens itivity method [Mass/Vol]Ordered By: Darrel Sanders on 11-06-2024 Troponin T High Sensitivity 4 Hour 19 ng/L <22 [facility] Troponin T High Sensitivity 2 Hour 23 ng/L High <22 [facility] Troponin T High Sensitivity 18 ng/L <22 [facility] Troponin T.cardiac [Mass/vol ume] in Serum or Plasma by High sensitivity methodOrdered By: Darrel Sanders on 11-06-2024 Troponin T.cardiac High sensitivity method [Mass/Vol] 19 ng/L <22 [facility] Troponin T.cardiac High sensitivity method [Mass/Vol] 23 ng/L High <22 [facility] Troponin T.cardiac High sensitivity method [Mass/Vol] 18 ng/L <22 [facility] Vitamin B12on 11-06-2024 Cobalamin (Vitamin B12) [Mass/Vol] 790 pg/mL Normal 180-914 [facility] Comment on above: Performed By: #### L 501.9520, L503.6550, L503.0106, L503.6030, L501.7300 ####[facility] [address] [place], [address] Vitamin B12 ser/plasOrdered By: Darrel Sandres on 11-06-2024 Cobalamin (Vitamin B12) [Mass/Vol] 790 pg/mL 180-914 [facility] Absolute neutrophil countOrd ered By: Harrison Linares on 11-05-2024 Neutrophils (Bld) [#/Vol] 6.9 10*3/uL 2.0-7.7 [facility] Activated partial thrombopla stin time (aPTT) in platelet poor plasma by coagulation aOrdered By: Harrison Linares on 11-05-2024 aPTT Coag (PPP) [Time] 22.1 s Low 24.1-36.2 [facility] Anion gap in Serum or Plasma Ordered By: Harrison Linares on 11-05-2024 Anion gap [Moles/Vol] 12 mmol/L 12-13 [facility] BUN/creatinine ratioOrdered By: Harrison Linares on 11-05-2024 Urea nitrogen/Creatinine [Mass ratio] 15.4 mg/mg 05-20 [facility] Basic Metabolic Profile (BMP )on 11-05-2024 BUN/CRE 15.4 RATIO Normal 05-20 [facility] Comment on above: Performed By: #### B TS, L503.6005, L500.2500, M100.7900, L300.4310, L100.0100, L300.3900 ####[facility] [address] [place], [address] Calcium [Mass/Vol] 9.0 mg/dL Normal 7.6-11.0 [facility] Comment on above: Performed By: #### B TS, L503.6005, L500.2500, M100.7900, L300.4310, L100.0100, L300.3900 ####[facility] [address] [place], [address] Chloride [Moles/Vol] 90 mmol/L Low 98-108 [facility] Comment on above: Performed By: #### B TS, L503.6005, L500.2500, M100.7900, L300.4310, L100.0100, L300.3900 ####[facility] [address] [place], [address] CO2 [Moles/Vol] 23.8 mmol/L Normal 21.0-32.0 [facility] Comment on above: Performed By: #### B TS, L503.6005, L500.2500, M100.7900, L300.4310, L100.0100, L300.3900 ####[facility] [address] [place], [address] Creatinine [Mass/Vol] 0.92 mg/dL Normal 0.70-1.20 [facility] Comment on above: Performed By: #### B TS, L503.6005, L500.2500, M100.7900, L300.4310, L100.0100, L300.3900 ####[facility] [address] [place], [address] ECRCL 59.87 ml/min Normal 50-250 [facility] Comment on above: Performed By: #### B TS, L503.6005, L500.2500, M100.7900, L300.4310, L100.0100, L300.3900 ####[facility] [address] [place], [address] GAP 12 Normal 5-15 [facility] Comment on above: Performed By: #### B TS, L503.6005, L500.2500, M100.7900, L300.4310, L100.0100, L300.3900 ####[facility] [address] [place], [address] GFR/1.73 sq M.predicted among non-blacks MDRD (S/P/Bld) [Vol rate/Area] 84 mL/min/{1.73_m2} Normal >60 [facility] Comment on above: Result Comment: mL/m in/1.73m2 CKD-EPI Creatinine Equation (2020) Performed By: #### B TS, L503.6005, L500.2500, M100.7900, L300.4310, L100.0100, L300.3900 ####[facility] [address] [place], [address] Glucose [Mass/Vol] 110 mg/dL High 70-99 [facility] Comment on above: Performed By: #### B TS, L503.6005, L500.2500, M100.7900, L300.4310, L100.0100, L300.3900 ####[facility] [address] [place], [address] Potassium [Moles/Vol] 4.0 mmol/L Normal 3.3-5.1 [facility] Comment on above: Performed By: #### B TS, L503.6005, L500.2500, M100.7900, L300.4310, L100.0100, L300.3900 ####[facility] [address] [place], [address] Sodium [Moles/Vol] 126 mmol/L Low 133-145 [facility] Comment on above: Performed By: #### B TS, L503.6005, L500.2500, M100.7900, L300.4310, L100.0100, L300.3900 ####[facility] [address] [place], [address] Urea nitrogen [Mass/Vol] 14 mg/dL Normal 4-19 [facility] Comment on above: Performed By: #### B TS, L503.6005, L500.2500, M100.7900, L300.4310, L100.0100, L300.3900 ####[facility] [address] [place], [address] Basophil percentageOrdered B y: Harrison Linares on 11-05-2024 Basophils/100 WBC (Bld) 0.2 % 0-1 [facility] CBC W/Diff, Automatedon Absolute Lymph 1.16 X10 3/uL Normal 0.83-4.51 [facility] Comment on above: Order Comment: REDRA W. PREVIOUS SPECIMEN REJECTED DUE TOCLOTTED. 11/05/242304 Quintin R Cardenas. Performed By: #### L 100.0100 ####[facility] [address] [place], [address] Absolute Neut 6.9 X10 3/uL Normal 2.0-7.7 [facility] Comment on above: Order Comment: REDRA W. PREVIOUS SPECIMEN REJECTED DUE TOCLOTTED. 11/05/242304 Quintin R Cardenas. Performed By: #### L 100.0100 ####[facility] [address] [place], [address] Basophils/100 WBC (Bld) 0.2 % Normal 0-1 [facility] Comment on above: Order Comment: REDRA W. PREVIOUS SPECIMEN REJECTED DUE TOCLOTTED. 11/05/242304 Quintin R Cardenas. Performed By: #### L 100.0100 ####[facility] [address] [place], [address] Eosinophils/100 WBC (Bld) 0.6 % Normal 0-5 [facility] Comment on above: Order Comment: REDRA W. PREVIOUS SPECIMEN REJECTED DUE TOCLOTTED. 11/05/242304 Quintin R Cardenas. Performed By: #### L 100.0100 ####[facility] [address] [place], [address] Erythrocyte distribution width (RBC) [Ratio] 12.2 % Normal 11.6-14.6 [facility] Comment on above: Order Comment: REDRA W. PREVIOUS SPECIMEN REJECTED DUE TOCLOTTED. 11/05/242304 Quintin R Cardenas. Performed By: #### L 100.0100 ####[facility] [address] [place], [address] Hematocrit (Bld) [Volume fraction] 32.9 % Low 40-54 [facility] Comment on above: Order Comment: REDRA W. PREVIOUS SPECIMEN REJECTED DUE TOCLOTTED. 11/05/242304 Quintin R Cardenas. Performed By: #### L 100.0100 ####[facility] [address] [place], [address] Hemoglobin (Bld) [Mass/Vol] 11.5 g/dL Low 13.0-16.5 [facility] Comment on above: Order Comment: REDRA W. PREVIOUS SPECIMEN REJECTED DUE TOCLOTTED. 11/05/242304 Quintin R Cardenas. Performed By: #### L 100.0100 ####[facility] [address] [place], [address] IG% 0.600 Normal 0.0-0.9 [facility] Comment on above: Order Comment: REDRA W. PREVIOUS SPECIMEN REJECTED DUE TOCLOTTED. 11/05/242304 Quintin R Cardenas. Result Comment: IG% - Immature Granulocytes (promyelocytes, myelocytes andmetamyelocytes) > 1% indicates that a LEFT SHIFT is Present. Performed By: #### L 100.0100 ####[facility] [address] [place], [address] Lymphocytes/100 WBC (Bld) 12.9 % Low 19-41 [facility] Comment on above: Order Comment: REDRA W. PREVIOUS SPECIMEN REJECTED DUE TOCLOTTED. 11/05/242304 Quintin R Cardenas. Performed By: #### L 100.0100 ####[facility] [address] [place], [address] MCH (RBC) [Entitic mass] 30.5 pg Normal 27.0-32.0 [facility] Comment on above: Order Comment: REDRA W. PREVIOUS SPECIMEN REJECTED DUE TOCLOTTED. 11/05/242304 Quintin R Cardenas. Performed By: #### L 100.0100 ####[facility] [address] [place], [address] MCHC (RBC) [Mass/Vol] 35.0 g/dL Normal 32-36 [facility] Comment on above: Order Comment: REDRA W. PREVIOUS SPECIMEN REJECTED DUE TOCLOTTED. 11/05/242304 Quintin R Cardenas. Performed By: #### L 100.0100 ####[facility] [address] [place], [address] MCV (RBC) [Entitic vol] 87.3 fL Normal 80-94 [facility] Comment on above: Order Comment: REDRA W. PREVIOUS SPECIMEN REJECTED DUE TOCLOTTED. 11/05/242304 Quintin R Cardenas. Performed By: #### L 100.0100 ####[facility] [address] [place], [address] Monocytes/100 WBC (Bld) 8.9 % Normal 0-10 [facility] Comment on above: Order Comment: REDRA W. PREVIOUS SPECIMEN REJECTED DUE TOCLOTTED. 11/05/242304 Quintin R Cardenas. Performed By: #### L 100.0100 ####[facility] [address] [place], [address] Neutrophils/100 WBC (Bld) 76.8 % High 47-70 [facility] Comment on above: Order Comment: REDRA W. PREVIOUS SPECIMEN REJECTED DUE TOCLOTTED. 11/05/242304 Quintin R Cardenas. Performed By: #### L 100.0100 ####[facility] [address] [place], [address] Nucleated RBC (Bld) [#/Vol] 0 10*3/uL Normal 0-5 [facility] Comment on above: Order Comment: REDRA W. PREVIOUS SPECIMEN REJECTED DUE TOCLOTTED. 11/05/242304 Quintin R Cardenas. Performed By: #### L 100.0100 ####[facility] [address] [place], [address] Platelet mean volume (Bld) [Entitic vol] 8.7 fL Normal 6.2-12.0 [facility] Comment on above: Order Comment: REDRA W. PREVIOUS SPECIMEN REJECTED DUE TOCLOTTED. 11/05/242304 Quintin R Cardenas. Performed By: #### L 100.0100 ####[facility] [address] [place], [address] Platelets (Bld) [#/Vol] 274 10*3/uL Normal 150-450 [facility] Comment on above: Order Comment: REDRA W. PREVIOUS SPECIMEN REJECTED DUE TOCLOTTED. 11/05/242304 Quintin R Cardenas. Performed By: #### L 100.0100 ####[facility] [address] [place], [address] RBC (Bld) [#/Vol] 3.77 10*6/uL Low 4.6-6.2 [facility] Comment on above: Order Comment: REDRA W. PREVIOUS SPECIMEN REJECTED DUE TOCLOTTED. 11/05/242304 Quintin R Cardenas. Performed By: #### L 100.0100 ####[facility] [address] [place], [address] RDW SD 39.0 fl Normal 35.1-43.9 [facility] Comment on above: Order Comment: REDRA W. PREVIOUS SPECIMEN REJECTED DUE TOCLOTTED. 11/05/242304 Quintin R Cardenas. Performed By: #### L 100.0100 ####[facility] [address] [place], [address] WBC (Bld) [#/Vol] 9.0 10*3/uL Normal 4.4-11.0 [facility] Comment on above: Order Comment: REDRA W. PREVIOUS SPECIMEN REJECTED DUE TOCLOTTED. 11/05/242304 Quintin R Cardenas. Performed By: #### L 100.0100 ####[facility] [address] [place], [address] Absolute Neut Normal 2.0-7.7 [facility] Comment on above: Result Comment: This specimen has been REJECTED due to Laboratory criteria:Clotted.CARGABRITE has been notified of need of recollection.11/05/242304 Quintin R Cardenas Performed By: #### B TS, L503.6005, L500.2500, M100.7900, L300.4310, L100.0100, L300.3900 ####[facility] [address] [place], [address] HCT Normal 40-54 [facility] Comment on above: Result Comment: This specimen has been REJECTED due to Laboratory criteria:Clotted.CARGABRITE has been notified of need of recollection.11/05/242304 Quintin R Cardenas Performed By: #### B TS, L503.6005, L500.2500, M100.7900, L300.4310, L100.0100, L300.3900 ####[facility] [address] [place], [address] HGB Normal 13.0-16.5 [facility] Comment on above: Result Comment: This specimen has been REJECTED due to Laboratory criteria:Clotted.CARGABRITE has been notified of need of recollection.11/05/242304 Quintin R Cardenas Performed By: #### B TS, L503.6005, L500.2500, M100.7900, L300.4310, L100.0100, L300.3900 ####[facility] [address] [place], [address] MCH Normal 27.0-32.0 [facility] Comment on above: Result Comment: This specimen has been REJECTED due to Laboratory criteria:Clotted.CARGABRITE has been notified of need of recollection.11/05/242304 Quintin R Cardenas Performed By: #### B TS, L503.6005, L500.2500, M100.7900, L300.4310, L100.0100, L300.3900 ####[facility] [address] [place], [address] MCHC Normal 32-36 [facility] Comment on above: Result Comment: This specimen has been REJECTED due to Laboratory criteria:Clotted.CARGABRITE has been notified of need of recollection.11/05/242304 Quintin R Cardenas Performed By: #### B TS, L503.6005, L500.2500, M100.7900, L300.4310, L100.0100, L300.3900 ####[facility] [address] [place], [address] MCV Normal 80-94 [facility] Comment on above: Result Comment: This specimen has been REJECTED due to Laboratory criteria:Clotted.CARGABRITE has been notified of need of recollection.11/05/242304 Quintin R Cardenas Performed By: #### Marco TS, L503.6005, L500.2500, M100.7900, L300.4310, L100.0100, L300.3900 ####[facility] [address] [place], [address] NEUT% Normal 47-70 [facility] Comment on above: Result Comment: This specimen has been REJECTED due to Laboratory criteria:Clotted.CARGABRITE has been notified of need of recollection.11/05/242304 Quintin R Cardenas Performed By: #### B TS, L503.6005, L500.2500, M100.7900, L300.4310, L100.0100, L300.3900 ####[facility] [address] [place], [address] PLT Normal 150-450 [facility] Comment on above: Result Comment: This specimen has been REJECTED due to Laboratory criteria:Clotted.CARGABRITE has been notified of need of recollection.11/05/242304 Quintin R Cardenas Performed By: #### B TS, L503.6005, L500.2500, M100.7900, L300.4310, L100.0100, L300.3900 ####[facility] [address] [place], [place], [address] RBC Normal 4.6-6.2 [facility] Comment on above: Result Comment: This specimen has been REJECTED due to Laboratory criteria:Clotted.CARGABRITE has been notified of need of recollection.11/05/242304 Quintin R Cardenas Performed By: #### B TS, L503.6005, L500.2500, M100.7900, L300.4310, L100.0100, L300.3900 ####[facility] [address] [place], [place], [address] RDW CV Normal 11.6-14.6 [facility] Comment on above: Result Comment: This specimen has been REJECTED due to Laboratory criteria:Clotted.CARGABRITE has been notified of need of recollection.11/05/242304 Quintin R Cardenas Performed By: #### B TS, L503.6005, L500.2500, M100.7900, L300.4310, L100.0100, L300.3900 ####[facility] [address] [place], [place], [address] RDW SD Normal 35.1-43.9 [facility] Comment on above: Result Comment: This specimen has been REJECTED due to Laboratory criteria:Clotted.CARGABRITE has been notified of need of recollection.11/05/242304 Quintin R Cardenas Performed By: #### B TS, L503.6005, L500.2500, M100.7900, L300.4310, L100.0100, L300.3900 ####[facility] [address] [place], [place], [address] WBC Normal 4.4-11.0 [facility] Comment on above: Result Comment: This specimen has been REJECTED due to Laboratory criteria:Clotted.DERIDRE has been notified of need of recollection.11/05/24 2305 Quintin R Cardenas Performed By: #### B TS, L503.6005, L500.2500, M100.7900, L300.4310, L100.0100, L300.3900 ####[facility] [address] [place], [place], [id number] CTA Abd/Pelvis W/WO Contrast on 11-05-2024 CTA Abd/Pelvis W/WO Contrast Normal [facility] Carbon dioxide, total [Moles /volume] in Central venous bloodOrdered By: Harrison Linares on 11-05-2024 CO2 [Moles/Vol] 23.8 mmol/L 21.0-32.0 [facility] Chloride assayOrdered By: Erica Linares on 11-05-2024 Chloride [Moles/Vol] 90 mmol/L Low 98-108 [facility] Eosinophil percentageOrdered By: Harrison Linares on 11-05-2024 Eosinophils/100 WBC (Bld) 0.6 % 0-5 [facility] Erythrocyte distribution wid th (RBC) [Ratio]Ordered By: Harrison Linares on 11-05-2024 Erythrocyte distribution width (RBC) [Entitic vol] 39.0 fL 35.1-43.9 [facility] Erythrocyte distribution wid th ratioOrdered By: Harrison Linares on 11-05-2024 Erythrocyte distribution width (RBC) [Ratio] 12.2 % 11.6-14.6 [facility] Estimation of creatinine dunia aranceOrdered By: Harrison Linares on 11-05-2024 Estimated Creatinine Clearance Calc 59.87 ml/min 50-250 [facility] GFR/1.73 sq M.predicted gregg g non-blacks MDRD (S/P/Bld) [Vol rate/Area]Ordered By: Harrison Linares on 11-05-2024 Estimated GFR (MDRD) Non-Af Amer 84 >60 [facility] Comment on above: mL/min/1.73m2 CKD-EP I Creatinine Equation (2020) Hematocrit Auto (Bld) [Volum e fraction]Ordered By: Harrison Linares on 11-05-2024 Hematocrit (Bld) [Volume fraction] 32.9 % Low 40-54 [facility] Hemoglobin measurementOrdere d By: Harrison Linares on 11-05-2024 Hemoglobin (Bld) [Mass/Vol] 11.5 g/dL Low 13.0-16.5 [facility] Immature granulocytes/100 WB C Auto (Bld)Ordered By: Harrison Linares on 11-05-2024 Immature granulocytes/100 WBC (Bld) 0.600 % 0.0-0.9 [facility] Comment on above: IG% - Immature Granu locytes (promyelocytes, myelocytes and metamyelocytes) > 1% indicates that a LEFT SHIFT is Present. International normalized rat io (INR) calculationOrdered By: Harrison Linares on 11-05-2024 INR Coag (Bld) [Relative time] 0.9 {INR} [facility] Lactic Acidon 11-05-2024 Lactate [Moles/Vol] mmol/L Normal 0.0-2.0 [facility] Comment on above: Order Comment: Y Performed By: #### B TS, L503.6005, L500.2500, M100.7900, L300.4310, L100.0100, L300.3900 ####[facility] [address] [place], [place], [phone] Lactic acid measurementOrder ed By: Harrison Linares on 11-05-2024 Lactate [Moles/Vol] mmol/L 0.0-2.0 [facility] Lower GI hemoglobin IA Ql (S tl)Ordered By: Harrison Linares on 11-05-2024 Stool Occult Blood (EDINSON) Positive Abnormal [facility] Lymphocytes Auto (Unsp spec) [#/Vol]Ordered By: Harrison Linares on 11-05-2024 Lymphocytes (Bld) [#/Vol] 1.16 10*3/uL 0.83-4.51 [facility] Lymphocytes/100 WBC Auto (Un sp spec)Ordered By: Harrison Linares on 11-05-2024 Lymphocytes/100 WBC (Bld) 12.9 % Low 19-41 [facility] MCV (mean corpuscular volume ) determinationOrdered By: Harrison Linares on 11-05-2024 MCV (RBC) [Entitic vol] 87.3 fL 80-94 [facility] Magnesium (Unsp spec) [Mass/ Vol]Ordered By: Darrel Sanders on 11-05-2024 Magnesium [Mass/Vol] 2.3 mg/dL High 1.5-2.2 [facility] Magnesium measurement (mass/ volume)Ordered By: Darrel Sanders on 11-05-2024 Magnesium (Unsp spec) [Mass/Vol] 2.3 mg/dL High 1.5-2.2 [facility] Mean corpuscular hemoglobin (MCH) determinationOrdered By: Harrison Linares on 11-05-2024 MCH (RBC) [Entitic mass] 30.5 pg 27.0-32.0 [facility] Mean corpuscular hemoglobin concentration (MCHC) determinationOrdered By: Harrison Linares on 11-05-2024 MCHC (RBC) [Mass/Vol] 35.0 g/dL 32-36 [facility] Mean platelet volume determi nationOrdered By: Harrison Linares on 11-05-2024 Platelet mean volume (Bld) [Entitic vol] 8.7 fL 6.2-12.0 [facility] Monocyte percentageOrdered B y: Harrison Linares on 11-05-2024 Monocytes/100 WBC (Bld) 8.9 % 0-10 [facility] Neutrophil percentageOrdered By: Harrison Linares on 11-05-2024 Neutrophils/100 WBC (Bld) 76.8 % High 47-70 [facility] Nucleated red blood cell per centageOrdered By: Harrison Linares on 11-05-2024 Nucleated RBC/100 WBC (Bld) [Ratio] 0 % 0-5 [facility] Partial Thromboplast Timeon 11-05-2024 aPTT Coag (Bld) [Time] 22.1 s Low 24.1-36.2 [facility] Comment on above: Performed By: #### B TS, L503.6005, L500.2500, M100.7900, L300.4310, L100.0100, L300.3900 ####[facility] [address] [place], [address] Platelet countOrdered By: Erica Linares on 11-05-2024 Platelets (Bld) [#/Vol] 274 10*3/uL 150-450 [facility] Potassium (Unsp spec) [Mass/ Vol]Ordered By: Harrison Linares on 11-05-2024 Potassium [Moles/Vol] 4.0 mmol/L 3.3-5.1 [facility] Prothrombin Time w/INRon INR Coag (PPP) [Relative time] 0.9 {INR} Normal [facility] Comment on above: Performed By: #### B TS, L503.6005, L500.2500, M100.7900, L300.4310, L100.0100, L300.3900 ####[facility] [address] [place], [address] PT Coag (PPP) [Time] 12.2 s Normal 11.7-14.9 [facility] Comment on above: Performed By: #### B TS, L503.6005, L500.2500, M100.7900, L300.4310, L100.0100, L300.3900 ####[facility] [address] [place], [address] Prothrombin timeOrdered By: Harrison Linares on 11-05-2024 PT Coag (PPP) [Time] 12.2 s 11.7-14.9 [facility] RBC Auto (Bld) [#/Vol]Ordere d By: Harrison Linares on 11-05-2024 RBC (Bld) [#/Vol] 3.77 10*6/uL Low 4.6-6.2 [facility] Serum creatinine measurement (mass/volume)Ordered By: Harrison Linares on 11-05-2024 Creatinine [Mass/Vol] 0.92 mg/dL 0.70-1.20 [facility] Serum glucose measurement (m ass/volume)Ordered By: Harrison Linares on 11-05-2024 Glucose [Mass/Vol] 110 mg/dL High 70-99 [facility] Serum or plasma calcium shagufta urement (mass/volume)Ordered By: Harrison Linares on 11-05-2024 Calcium [Mass/Vol] 9.0 mg/dL 7.6-11.0 [facility] Serum or plasma urea nitroge n measurement (mass/volume)Ordered By: Harrison Linares on 11-05-2024 Urea nitrogen [Mass/Vol] 14 mg/dL 4-19 [facility] Sodium levelOrdered By: Dylan Linares on 11-05-2024 Sodium [Moles/Vol] 126 mmol/L Low 133-145 [facility] Stool gastrointestinal hemog lobin detection by immunologic methodOrdered By: Harrison Linares on 11-05-2024 Lower GI hemoglobin IA Ql (Stl) Positive Abnormal [facility] Type AND Screenon 11-05-2024 ABO and Rh group Nom (Bld) Blood group O Rh(D) positive Normal [facility] Comment on above: Order Comment: HGI Performed By: #### B TS, L503.6005, L500.2500, M100.7900, L300.4310, L100.0100, L300.3900 ####[facility] [address] [place], [place], [phone] White blood cell (WBC) count Ordered By: Harrison Linares on 11-05-2024 WBC (Bld) [#/Vol] 9.0 10*3/uL 4.4-11.0 [facility] aPTT Coag (PPP) [Time]Ordere d By: Harrison Linares on 11-05-2024 aPTT Coag (Bld) [Time] 22.1 s Low 24.1-36.2 [facility] CNPNon 11-02-2024 CNPN Telephone (HEMAWS) -- CHRISJARED Kaitlin ([id number]) 1945 M Date Time Provider Department 11/02/24 PAPI HERNANDEZ During your visit today, we recorded the following information about you: Filomena Rodrigues 11/02/2024 2:33 PM Signed Patient and his daughter stopped in to talk to Jolynn Frias. 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 Please call patients daughter Teresa [phone] Allergies As of Date: 11/02/2024 (No Known Allergies) Date Reviewed: 05/05/2020 Reviewed by: Caro Mo (Rn), RN - Fully Assessed Reason for Visit: Patient Question [[id number]] Prescriptions as of 01/12/2025 - amLODIPine (NORVASC) [...] of Hemorrhage [*03/23/2010 Coronary artery disease involving cabazon kern*07/18/2019 History of varicose veins [Z86.79] 07/18/2019 Chest pain, unspecified [R07.9] 07/18/2019 History of CVA (cerebrovascular accident) [Z86.*07/18/2019 Discharge planning issues [Z75.8] 07/18/2019 Preop testing [Z01.818] 07/18/2019 On mechanically assisted ventilation (HCC) [Z99*07/19/2019 07/20/2019 Pain, postoperative, acute [G89.18] 07/19/2019 Stress hyperglycemia [R73.9] 07/19/2019 07/21/2019 Atelectasis [J98.11] 07/20/2019 Transition of care performed with sharing of cl*07/21/2019 Encounter Status:Closed by FILOMENA RODRIGUES on 01/12/25 Normal [facility] Oncology Visit Reporton 04- Oncology Visit Report Normal [facility] Carcinoembryonic Antigenon 0 - CEA 25.2 ng/mL High 0.0-4.7 [facility] Comment on above: Order Comment: ADD O N TO BW-ALREADY IN LAB Result Comment: Nons mokers <3.9 Smokers <5.6[employer] Electrochemiluminescence Immunoassay(ECLIA)Values obtained with different assay methods or kitscannot be used interchangeably. Results cannot beinterpreted as absolute evidence of the presence orabsence of malignant disease.Performed at: [employer] [address] Director: Jian Paredes PhD, Phone: [phone] Performed By: #### L 4816.5490 ####[facility] [address] [place], [place], [phone] Abdomen/Pelvis W IV Cont ONL Yon 10-24-2024 Abdomen/Pelvis W IV Cont ONLY Normal [facility] Absolute lymphocyte countOrd ered By: Jerry Hightower on 10-24-2024 Lymphocytes Auto (Unsp spec) [#/Vol] 1.10 10*3/uL 0.83-4.51 [facility] Absolute lymphocyte countOrd ered By: Papi Hernandez on 10-24-2024 Lymphocytes Auto (Unsp spec) [#/Vol] 1.26 10*3/uL 0.83-4.51 [facility] Absolute neutrophil countOrd ered By: Jerry Hightower on 10-24-2024 Neutrophils (Bld) [#/Vol] 6.7 10*3/uL 2.0-7.7 [facility] Absolute neutrophil countOrd ered By: Papi Hernandez on 10-24-2024 Neutrophils (Bld) [#/Vol] 6.5 10*3/uL 2.0-7.7 [facility] Anion gap in Serum or Plasma Ordered By: Jerry Hightower on 10-24-2024 Anion gap [Moles/Vol] 11 mmol/L 12-13 [facility] Anion gap in Serum or Plasma Ordered By: Papi Hernandez on 10-24-2024 Anion gap [Moles/Vol] 9 mmol/L 12-13 [facility] Automated lymphocyte count a s percentage of total leukocytesOrdered By: Jerry Hightower on 10-24-2024 Lymphocytes/100 WBC Auto (Unsp spec) 12.7 % Low [facility] Automated lymphocyte count a s percentage of total leukocytesOrdered By: Papi Hernandez on 10-24-2024 Lymphocytes/100 WBC Auto (Unsp spec) 14.4 % Low [facility] BUN/creatinine ratioOrdered By: Jerry Hightower on 10-24-2024 Urea nitrogen/Creatinine [Mass ratio] 11.6 mg/mg 05-20 [facility] BUN/creatinine ratioOrdered By: Papi Hernandez on 10-24-2024 Urea nitrogen/Creatinine [Mass ratio] 12.0 mg/mg 05-20 [facility] Basophil percentageOrdered B y: Jerry Hightower on 10-24-2024 Basophils/100 WBC (Bld) 0.3 % 0-1 [facility] Basophil percentageOrdered B y: Papi Hernandez on 10-24-2024 Basophils/100 WBC (Bld) 0.3 % 0-1 [facility] Bilirubin Test strip Ql (U)O rdered By: Jerry Hightower on 10-24-2024 Bilirubin Ql (U) Negative Negative [facility] Bilirubin, totalOrdered By: Jerry Hightower on 10-24-2024 Bilirubin [Mass/Vol] 0.55 mg/dL 0.00-1.30 [facility] Bilirubin, totalOrdered By: Papi Hernandez on 10-24-2024 Bilirubin [Mass/Vol] 0.50 mg/dL 0.00-1.30 [facility] CBC W/Diff, Automatedon 09-30 Absolute Lymph 1.10 X10 3/uL Normal 0.83-4.51 [facility] Comment on above: Performed By: #### L 500.4050, L501.2450, L100.0100, L503.6005 ####[facility] [address] [place], [address] Absolute Neut 6.7 X10 3/uL Normal 2.0-7.7 [facility] Comment on above: Performed By: #### L 500.4050, L501.2450, L100.0100, L503.6005 ####[facility] [address] [place], [address] Basophils/100 WBC (Bld) 0.3 % Normal 0-1 [facility] Comment on above: Performed By: #### L 500.4050, L501.2450, L100.0100, L503.6005 ####[facility] [address] [place], [address] Eosinophils/100 WBC (Bld) 1.0 % Normal 0-5 [facility] Comment on above: Performed By: #### L 500.4050, L501.2450, L100.0100, L503.6005 ####[facility] [address] [place], [address] Erythrocyte distribution width (RBC) [Ratio] 12.4 % Normal 11.6-14.6 [facility] Comment on above: Performed By: #### L 500.4050, L501.2450, L100.0100, L503.6005 ####[facility] [address] [place], [address] Hematocrit (Bld) [Volume fraction] 37.0 % Low 40-54 [facility] Comment on above: Performed By: #### L 500.4050, L501.2450, L100.0100, L503.6005 ####[facility] [address] [place], [address] Hemoglobin (Bld) [Mass/Vol] 13.1 g/dL Normal 13.0-16.5 [facility] Comment on above: Performed By: #### L 500.4050, L501.2450, L100.0100, L503.6005 ####[facility] [address] [place], [address] IG% 0.500 Normal 0.0-0.9 [facility] Comment on above: Result Comment: IG% - Immature Granulocytes (promyelocytes, myelocytes andmetamyelocytes) > 1% indicates that a LEFT SHIFT is Present. Performed By: #### L 500.4050, L501.2450, L100.0100, L503.6005 ####[facility] [address] [place], [address] Lymphocytes/100 WBC (Bld) 12.7 % Low 19-41 [facility] Comment on above: Performed By: #### L 500.4050, L501.2450, L100.0100, L503.6005 ####[facility] [address] [place], [address] MCH (RBC) [Entitic mass] 30.8 pg Normal 27.0-32.0 [facility] Comment on above: Performed By: #### L 500.4050, L501.2450, L100.0100, L503.6005 ####[facility] [address] [place], [address] MCHC (RBC) [Mass/Vol] 35.4 g/dL Normal 32-36 [facility] Comment on above: Performed By: #### L 500.4050, L501.2450, L100.0100, L503.6005 ####[facility] [address] [place], [address] MCV (RBC) [Entitic vol] 87.1 fL Normal 80-94 [facility] Comment on above: Performed By: #### L 500.4050, L501.2450, L100.0100, L503.6005 ####[facility] [address] [place], [address] Monocytes/100 WBC (Bld) 8.4 % Normal 0-10 [facility] Comment on above: Performed By: #### L 500.4050, L501.2450, L100.0100, L503.6005 ####[facility] [address] [place], [address] Neutrophils/100 WBC (Bld) 77.1 % High 47-70 [facility] Comment on above: Performed By: #### L 500.4050, L501.2450, L100.0100, L503.6005 ####[facility] [address] [place], [address] Nucleated RBC (Bld) [#/Vol] 0 10*3/uL Normal 0-5 [facility] Comment on above: Performed By: #### L 500.4050, L501.2450, L100.0100, L503.6005 ####[facility] [address] [place], [address] Platelet mean volume (Bld) [Entitic vol] 9.0 fL Normal 6.2-12.0 [facility] Comment on above: Performed By: #### L 500.4050, L501.2450, L100.0100, L503.6005 ####[facility] [address] [place], [address] Platelets (Bld) [#/Vol] 307 10*3/uL Normal 150-450 [facility] Comment on above: Performed By: #### L 500.4050, L501.2450, L100.0100, L503.6005 ####[facility] [address] [place], [address] RBC (Bld) [#/Vol] 4.25 10*6/uL Low 4.6-6.2 [facility] Comment on above: Performed By: #### L 500.4050, L501.2450, L100.0100, L503.6005 ####[facility] [address] [place], [address] RDW SD 39.6 fl Normal 35.1-43.9 [facility] Comment on above: Performed By: #### L 500.4050, L501.2450, L100.0100, L503.6005 ####[facility] [address] [place], [address] WBC (Bld) [#/Vol] 8.7 10*3/uL Normal 4.4-11.0 [facility] Comment on above: Performed By: #### L 500.4050, L501.2450, L100.0100, L503.6005 ####[facility] [address] [place], [address] Absolute Lymph 1.26 X10 3/uL Normal 0.83-4.51 [facility] Comment on above: Performed By: #### L 900.0098, L504.2610, L100.0100, L500.4050 ####[facility] [address] [place], [address] Absolute Neut 6.5 X10 3/uL Normal 2.0-7.7 [facility] Comment on above: Performed By: #### L 900.0098, L504.2610, L100.0100, L500.4050 ####[facility] [address] [place], [address] Basophils/100 WBC (Bld) 0.3 % Normal 0-1 [facility] Comment on above: Performed By: #### L 900.0098, L504.2610, L100.0100, L500.4050 ####[facility] [address] [place], [address] Eosinophils/100 WBC (Bld) 1.6 % Normal 0-5 [facility] Comment on above: Performed By: #### L 900.0098, L504.2610, L100.0100, L500.4050 ####[facility] [address] [place], [address] Erythrocyte distribution width (RBC) [Ratio] 12.5 % Normal 11.6-14.6 [facility] Comment on above: Performed By: #### L 900.0098, L504.2610, L100.0100, L500.4050 ####[facility] [address] [place], [address] Hematocrit (Bld) [Volume fraction] 38.0 % Low 40-54 [facility] Comment on above: Performed By: #### L 900.0098, L504.2610, L100.0100, L500.4050 ####[facility] [address] [place], [address] Hemoglobin (Bld) [Mass/Vol] 13.2 g/dL Normal 13.0-16.5 [facility] Comment on above: Performed By: #### L 900.0098, L504.2610, L100.0100, L500.4050 ####[facility] [address] [place], [address] IG% 0.200 Normal 0.0-0.9 [facility] Comment on above: Result Comment: IG% - Immature Granulocytes (promyelocytes, myelocytes andmetamyelocytes) > 1% indicates that a LEFT SHIFT is Present. Performed By: #### L 900.0098, L504.2610, L100.0100, L500.4050 ####[facility] [address] [place], [address] Lymphocytes/100 WBC (Bld) 14.4 % Low 19-41 [facility] Comment on above: Performed By: #### L 900.0098, L504.2610, L100.0100, L500.4050 ####[facility] [address] [place], [address] MCH (RBC) [Entitic mass] 30.8 pg Normal 27.0-32.0 [facility] Comment on above: Performed By: #### L 900.0098, L504.2610, L100.0100, L500.4050 ####[facility] [address] [place], [address] MCHC (RBC) [Mass/Vol] 34.7 g/dL Normal 32-36 [facility] Comment on above: Performed By: #### L 900.0098, L504.2610, L100.0100, L500.4050 ####[facility] [address] [place], [address] MCV (RBC) [Entitic vol] 88.8 fL Normal 80-94 [facility] Comment on above: Performed By: #### L 900.0098, L504.2610, L100.0100, L500.4050 ####[facility] [address] [place], [address] Monocytes/100 WBC (Bld) 9.7 % Normal 0-10 [facility] Comment on above: Performed By: #### L 900.0098, L504.2610, L100.0100, L500.4050 ####[facility] [address] [place], [address] Neutrophils/100 WBC (Bld) 73.8 % High 47-70 [facility] Comment on above: Performed By: #### L 900.0098, L504.2610, L100.0100, L500.4050 ####[facility] [address] [place], [address] Nucleated RBC (Bld) [#/Vol] 0 10*3/uL Normal 0-5 [facility] Comment on above: Performed By: #### L 900.0098, L504.2610, L100.0100, L500.4050 ####[facility] [address] [place], [address] Platelet mean volume (Bld) [Entitic vol] 8.8 fL Normal 6.2-12.0 [facility] Comment on above: Performed By: #### L 900.0098, L504.2610, L100.0100, L500.4050 ####[facility] [address] [place], [address] Platelets (Bld) [#/Vol] 299 10*3/uL Normal 150-450 [facility] Comment on above: Performed By: #### L 900.0098, L504.2610, L100.0100, L500.4050 ####[facility] [address] [place], [address] RBC (Bld) [#/Vol] 4.28 10*6/uL Low 4.6-6.2 [facility] Comment on above: Performed By: #### L 900.0098, L504.2610, L100.0100, L500.4050 ####[facility] [address] [place], [address] RDW SD 40.6 fl Normal 35.1-43.9 [facility] Comment on above: Performed By: #### L 900.0098, L504.2610, L100.0100, L500.4050 ####[facility] [address] [place], [address] WBC (Bld) [#/Vol] 8.8 10*3/uL Normal 4.4-11.0 [facility] Comment on above: Performed By: #### L 900.0098, L504.2610, L100.0100, L500.4050 ####[facility] [address] [place], [address] Carbon dioxide, total [Moles /volume] in Central venous bloodOrdered By: Jerry Hightower on 10-24-2024 CO2 [Moles/Vol] 26.7 mmol/L 21.0-32.0 [facility] Carbon dioxide, total [Moles /volume] in Central venous bloodOrdered By: Papi Hernandez on 10-24-2024 CO2 [Moles/Vol] 26.7 mmol/L 21.0-32.0 [facility] Chloride assayOrdered By: Avinash Hightower on 10-24-2024 Chloride [Moles/Vol] 92 mmol/L Low 98-108 [facility] Chloride assayOrdered By: Santa Hernandez on 10-24-2024 Chloride [Moles/Vol] 94 mmol/L Low 98-108 [facility] Comprehensive Metabolic Prof ilon 10-24-2024 Albumin [Mass/Vol] 4.3 g/dL Normal 3.4-4.8 [facility] Comment on above: Performed By: #### L 500.4050, L501.2450, L100.0100, L503.6005 ####[facility] [address] [place], [address] Albumin/Globulin [Mass ratio] 1.4 {ratio} Normal 0.9-2.4 [facility] Comment on above: Performed By: #### L 500.4050, L501.2450, L100.0100, L503.6005 ####[facility] [address] [place], [address] ALK PHOS 103 U/L Normal 40-129 [facility] Comment on above: Performed By: #### L 500.4050, L501.2450, L100.0100, L503.6005 ####[facility] [address] [place], [address] ALT [Catalytic activity/Vol] 17 U/L Normal <=46 [facility] Comment on above: Performed By: #### L 500.4050, L501.2450, L100.0100, L503.6005 ####[facility] [address] [place], [address] AST [Catalytic activity/Vol] 27 U/L Normal <=37 [facility] Comment on above: Performed By: #### L 500.4050, L501.2450, L100.0100, L503.6005 ####[facility] [address] [place], [address] Bilirubin [Mass/Vol] 0.55 mg/dL Normal 0.00-1.30 [facility] Comment on above: Performed By: #### L 500.4050, L501.2450, L100.0100, L503.6005 ####[facility] [address] [place], [address] BUN/CRE 11.6 RATIO Normal 10-20 [facility] Comment on above: Performed By: #### L 500.4050, L501.2450, L100.0100, L503.6005 ####[facility] [address] [place], [address] Calcium [Mass/Vol] 9.2 mg/dL Normal 7.6-11.0 [facility] Comment on above: Performed By: #### L 500.4050, L501.2450, L100.0100, L503.6005 ####[facility] [address] [place], [address] Chloride [Moles/Vol] 92 mmol/L Low 98-108 [facility] Comment on above: Performed By: #### L 500.4050, L501.2450, L100.0100, L503.6005 ####[facility] [address] [place], [address] CO2 [Moles/Vol] 26.7 mmol/L Normal 21.0-32.0 [facility] Comment on above: Performed By: #### L 500.4050, L501.2450, L100.0100, L503.6005 ####[facility] [address] [place], [address] Creatinine [Mass/Vol] 0.94 mg/dL Normal 0.70-1.20 [facility] Comment on above: Performed By: #### L 500.4050, L501.2450, L100.0100, L503.6005 ####[facility] [address] [place], [address] ECRCL 56.56 ml/min Normal 50-250 [facility] Comment on above: Performed By: #### L 500.4050, L501.2450, L100.0100, L503.6005 ####[facility] [address] [place], [address] GAP 11 Normal 5-15 [facility] Comment on above: Performed By: #### L 500.4050, L501.2450, L100.0100, L503.6005 ####[facility] [address] [place], [address] GFR/1.73 sq M.predicted among non-blacks MDRD (S/P/Bld) [Vol rate/Area] 82 mL/min/{1.73_m2} Normal >60 [facility] Comment on above: Result Comment: mL/m in/1.73m2 CKD-EPI Creatinine Equation (2020) Performed By: #### L 500.4050, L501.2450, L100.0100, L503.6005 ####[facility] [address] [place], [address] Globulin (S) [Mass/Vol] 3.0 g/dL Normal 2.2-4.2 [facility] Comment on above: Performed By: #### L 500.4050, L501.2450, L100.0100, L503.6005 ####[facility] [address] [place], [address] Glucose [Mass/Vol] 105 mg/dL High 70-99 [facility] Comment on above: Performed By: #### L 500.4050, L501.2450, L100.0100, L503.6005 ####[facility] [address] [place], [address] Potassium [Moles/Vol] 3.8 mmol/L Normal 3.3-5.1 [facility] Comment on above: Performed By: #### L 500.4050, L501.2450, L100.0100, L503.6005 ####[facility] [address] [place], [address] Sodium [Moles/Vol] 130 mmol/L Low 133-145 [facility] Comment on above: Performed By: #### L 500.4050, L501.2450, L100.0100, L503.6005 ####[facility] [address] [place], [address] T PROT 7.3 g/dL Normal 5.9-8.4 [facility] Comment on above: Performed By: #### L 500.4050, L501.2450, L100.0100, L503.6005 ####[facility] [address] [place], [address] Urea nitrogen [Mass/Vol] 11 mg/dL Normal 4-19 [facility] Comment on above: Performed By: #### L 500.4050, L501.2450, L100.0100, L503.6005 ####[facility] [address] [place], [address] Albumin [Mass/Vol] 4.2 g/dL Normal 3.4-4.8 [facility] Comment on above: Performed By: #### L 900.0098, L504.2610, L100.0100, L500.4050 ####[facility] [address] [place], [address] Albumin/Globulin [Mass ratio] 1.4 {ratio} Normal 0.9-2.4 [facility] Comment on above: Performed By: #### L 900.0098, L504.2610, L100.0100, L500.4050 ####[facility] [address] [place], [address] ALK PHOS 100 U/L Normal 40-129 [facility] Comment on above: Performed By: #### L 900.0098, L504.2610, L100.0100, L500.4050 ####[facility] [address] [place], [address] ALT [Catalytic activity/Vol] 16 U/L Normal <=46 [facility] Comment on above: Performed By: #### L 900.0098, L504.2610, L100.0100, L500.4050 ####[facility] [address] [place], [address] AST [Catalytic activity/Vol] 27 U/L Normal <=37 [facility] Comment on above: Performed By: #### L 900.0098, L504.2610, L100.0100, L500.4050 ####[facility] [address] [place], [address] Bilirubin [Mass/Vol] 0.50 mg/dL Normal 0.00-1.30 [facility] Comment on above: Performed By: #### L 900.0098, L504.2610, L100.0100, L500.4050 ####[facility] [address] [place], [address] BUN/CRE 12.0 RATIO Normal 10-20 [facility] Comment on above: Performed By: #### L 900.0098, L504.2610, L100.0100, L500.4050 ####[facility] [address] [place], [address] Calcium [Mass/Vol] 9.2 mg/dL Normal 7.6-11.0 [facility] Comment on above: Performed By: #### L 900.0098, L504.2610, L100.0100, L500.4050 ####[facility] [address] [place], [address] Chloride [Moles/Vol] 94 mmol/L Low 98-108 [facility] Comment on above: Performed By: #### L 900.0098, L504.2610, L100.0100, L500.4050 ####[facility] [address] [place], [address] CO2 [Moles/Vol] 26.7 mmol/L Normal 21.0-32.0 [facility] Comment on above: Performed By: #### L 900.0098, L504.2610, L100.0100, L500.4050 ####[facility] [address] [place], [address] Creatinine [Mass/Vol] 0.90 mg/dL Normal 0.70-1.20 [facility] Comment on above: Performed By: #### L 900.0098, L504.2610, L100.0100, L500.4050 ####[facility] [address] [place], [address] ECRCL 61.20 ml/min Normal 50-250 [facility] Comment on above: Performed By: #### L 900.0098, L504.2610, L100.0100, L500.4050 ####[facility] [address] [place], [address] GAP 9 Normal 5-15 [facility] Comment on above: Performed By: #### L 900.0098, L504.2610, L100.0100, L500.4050 ####[facility] [address] [place], [address] GFR/1.73 sq M.predicted among non-blacks MDRD (S/P/Bld) [Vol rate/Area] 86 mL/min/{1.73_m2} Normal >60 [facility] Comment on above: Result Comment: mL/m in/1.73m2 CKD-EPI Creatinine Equation (2020) Performed By: #### L 900.0098, L504.2610, L100.0100, L500.4050 ####[facility] [address] [place], [address] Globulin (S) [Mass/Vol] 2.9 g/dL Normal 2.2-4.2 [facility] Comment on above: Performed By: #### L 900.0098, L504.2610, L100.0100, L500.4050 ####[facility] [address] [place], [address] Glucose [Mass/Vol] 107 mg/dL High 70-99 [facility] Comment on above: Performed By: #### L 900.0098, L504.2610, L100.0100, L500.4050 ####[facility] [address] [place], [address] Potassium [Moles/Vol] 4.2 mmol/L Normal 3.3-5.1 [facility] Comment on above: Performed By: #### L 900.0098, L504.2610, L100.0100, L500.4050 ####[facility] [address] [place], [address] Sodium [Moles/Vol] 131 mmol/L Low 133-145 [facility] Comment on above: Performed By: #### L 900.0098, L504.2610, L100.0100, L500.4050 ####[facility] [address] [place], [address] T PROT 7.0 g/dL Normal 5.9-8.4 [facility] Comment on above: Performed By: #### L 900.0098, L504.2610, L100.0100, L500.4050 ####[facility] [address] [place], [address] Urea nitrogen [Mass/Vol] 11 mg/dL Normal 4-19 [facility] Comment on above: Performed By: #### L 900.0098, L504.2610, L100.0100, L500.4050 ####[facility] [address] [place], [address] Emergency Department Summary on 10-24-2024 Emergency Department Summary Normal [facility] Eosinophil percentageOrdered By: Jerry Hightower on 10-24-2024 Eosinophils/100 WBC (Bld) 1.0 % 0-5 [facility] Eosinophil percentageOrdered By: Papi Hernandez on 10-24-2024 Eosinophils/100 WBC (Bld) 1.6 % 0-5 [facility] Epithelial cells.squamous LM Ql (Urine sed)Ordered By: Jerry Hightower on 10-24-2024 Epithelial cells.squamous LM.HPF (Urine sed) [#/Area] 0 /[HPF] 0-5 [facility] Erythrocyte distribution wid th ratioOrdered By: Jerry Hightower on 10-24-2024 Erythrocyte distribution width (RBC) [Ratio] 12.4 % 11.6-14.6 [facility] Erythrocyte distribution wid th ratioOrdered By: Papi Hernandez on 10-24-2024 Erythrocyte distribution width (RBC) [Ratio] 12.5 % 11.6-14.6 [facility] Erythrocyte distribution wid th standard deviationOrdered By: Jerry Hightower on 10-24-2024 Erythrocyte distribution width (RBC) [Entitic vol] 39.6 fL 35.1-43.9 [facility] Erythrocyte distribution width (RBC) [Ratio] 39.6 fl 35.1-43.9 [facility] Erythrocyte distribution wid th standard deviationOrdered By: Papi Hernandez on 10-24-2024 Erythrocyte distribution width (RBC) [Entitic vol] 40.6 fL 35.1-43.9 [facility] Erythrocyte distribution width (RBC) [Ratio] 40.6 fl 35.1-43.9 [facility] Estimation of creatinine dunia aranceOrdered By: Jerry Hightower on 10-24-2024 Estimated Creatinine Clearance Calc 56.56 ml/min 50-250 [facility] Estimation of creatinine dunia aranceOrdered By: Papi Hernandez on 10-24-2024 Estimated Creatinine Clearance Calc 61.20 ml/min 50-250 [facility] GFR/1.73 sq M.predicted gregg g non-blacks MDRD (S/P/Bld) [Vol rate/Area]Ordered By: Jerry Hightower on 10-24-2024 Estimated GFR (MDRD) Non-Af Amer 82 >60 [facility] Comment on above: mL/min/1.73m2 CKD-EP I Creatinine Equation (2020) GFR/1.73 sq M.predicted gregg g non-blacks MDRD (S/P/Bld) [Vol rate/Area]Ordered By: Papi Hernandez on 10-24-2024 Estimated GFR (MDRD) Non-Af Amer 86 >60 [facility] Comment on above: mL/min/1.73m2 CKD-EP I Creatinine Equation (2020) Glomerular filtration rate ( GFR) estimation/1.73 sq m using serum, plasma, or whole bOrdered By: Jerry Hihgtower on 10-24-2024 GFR/1.73 sq M.predicted among non-blacks MDRD (S/P/Bld) [Vol rate/Area] 82 mL/min/{1.73_m2} >60 [facility] Comment on above: mL/min/1.73m2 CKD-EP I Creatinine Equation (2020) Glomerular filtration rate ( GFR) estimation/1.73 sq m using serum, plasma, or whole bOrdered By: Papi Hernandez on 10-24-2024 GFR/1.73 sq M.predicted among non-blacks MDRD (S/P/Bld) [Vol rate/Area] 86 mL/min/{1.73_m2} >60 [facility] Comment on above: mL/min/1.73m2 CKD-EP I Creatinine Equation (2020) Glucose Ql (U)Ordered By: Avinash Hightower on 10-24-2024 Urine Glucose (UA) Normal mg/dl Normal [facility] Hematocrit Auto (Bld) [Volum e fraction]Ordered By: Jerry Hightower on 10-24-2024 Hematocrit (Bld) [Volume fraction] 37.0 % Low 40-54 [facility] Hematocrit Auto (Bld) [Volum e fraction]Ordered By: Papi Hernandez on 10-24-2024 Hematocrit (Bld) [Volume fraction] 38.0 % Low 40-54 [facility] Hemoglobin measurementOrdere d By: Jerry Hightower on 10-24-2024 Hemoglobin (Bld) [Mass/Vol] 13.1 g/dL 13.0-16.5 [facility] Hemoglobin measurementOrdere d By: Papi Hernandez on 10-24-2024 Hemoglobin (Bld) [Mass/Vol] 13.2 g/dL 13.0-16.5 [facility] Immature granulocytes/100 WB C Auto (Bld)Ordered By: Jerry Hightower on 10-24-2024 Immature granulocytes/100 WBC (Bld) 0.500 % 0.0-0.9 [facility] Comment on above: IG% - Immature Granu locytes (promyelocytes, myelocytes and metamyelocytes) > 1% indicates that a LEFT SHIFT is Present. Immature granulocytes/100 WB C Auto (Bld)Ordered By: Papi Hernandez on 10-24-2024 Immature granulocytes/100 WBC (Bld) 0.200 % 0.0-0.9 [facility] Comment on above: IG% - Immature Granu locytes (promyelocytes, myelocytes and metamyelocytes) > 1% indicates that a LEFT SHIFT is Present. Ketones Test strip Ql (U)Ord ered By: Jerry Hightower on 10-24-2024 Ketones Ql (U) Negative Negative [facility] LDHon 10-24-2024 LDH 105 U/L Normal 87-241 [facility] Comment on above: Order Comment: 1 Performed By: #### L 900.0098, L504.2610, L100.0100, L500.4050 ####[facility] [address] [place], [place], [id number] Laboratory - Chemistry and C hemistry - challengeOrdered By: Jerry Hightower on 10-24-2024 AST [Catalytic activity/Vol] 27 U/L <38 [facility] Laboratory - Chemistry and C hemistry - challengeOrdered By: Papi Hernandez on 10-24-2024 AST [Catalytic activity/Vol] 27 U/L <38 [facility] Lactate dehydrogenase (LDH) measurementOrdered By: Papi Hernandez on 10-24-2024 LDH [Catalytic activity/Vol] 105 U/L 87-241 [facility] Lactic Acidon 10-24-2024 Lactate [Moles/Vol] 1.1 mmol/L Normal 0.0-2.0 [facility] Comment on above: Order Comment: Y Performed By: #### L 500.4050, L501.2450, L100.0100, L503.6005 ####[facility] [address] [place], [place], [id number] Lactic acid measurementOrder ed By: Jerry Hightower on 10-24-2024 Lactate [Moles/Vol] 1.1 mmol/L 0.0-2.0 [facility] Lipaseon 10-24-2024 Lipase [Catalytic activity/Vol] 28 U/L Normal 13-75 [facility] Comment on above: Result Comment: Debi vieyra note:LIPASE revised reference range effective 22.New Lipase methodology. Expected to produce lower valuesthan the previous assay method.NEW Reference Range: 13 - 75 U/L Performed By: #### L 500.4050, L501.2450, L100.0100, L503.6005 ####[facility] [address] [place], [address] Lipase measurementOrdered By : Jerry Hightower on 10-24-2024 Lipase [Catalytic activity/Vol] 28 U/L 13-75 [facility] Comment on above: Please note:LIPASE r evised reference range effective 22. New Lipase methodology. Expected to produce lower values than the previous assay method. NEW Reference Range: 13 - 75 U/L Lymphocytes Auto (Unsp spec) [#/Vol]Ordered By: Jerry Hightower on 10-24-2024 Lymphocytes (Bld) [#/Vol] 1.10 10*3/uL 0.83-4.51 [facility] Lymphocytes Auto (Unsp spec) [#/Vol]Ordered By: Papi Hernandez on 10-24-2024 Lymphocytes (Bld) [#/Vol] 1.26 10*3/uL 0.83-4.51 [facility] Lymphocytes/100 WBC Auto (Un sp spec)Ordered By: Jerry Hightower on 10-24-2024 Lymphocytes/100 WBC (Bld) 12.7 % Low 19-41 [facility] Lymphocytes/100 WBC Auto (Un sp spec)Ordered By: Papi Hernandez on 10-24-2024 Lymphocytes/100 WBC (Bld) 14.4 % Low 19-[address] [place] [address] MCV (mean corpuscular volume ) determinationOrdered By: Jerry Hightower on 10-24-2024 MCV (RBC) [Entitic vol] 87.1 fL 80-94 [facility] MCV (mean corpuscular volume ) determinationOrdered By: Papi Hernandez on 10-24-2024 MCV (RBC) [Entitic vol] 88.8 fL 80-94 [facility] Mean corpuscular hemoglobin (MCH) determinationOrdered By: Jerry Hightower on 10-24-2024 MCH (RBC) [Entitic mass] 30.8 pg 27.0-32.0 [facility] Mean corpuscular hemoglobin (MCH) determinationOrdered By: Papi Hernandez on 10-24-2024 MCH (RBC) [Entitic mass] 30.8 pg 27.0-32.0 [facility] Mean corpuscular hemoglobin concentration (MCHC) determinationOrdered By: Jerry Hightower on 10-24-2024 MCHC (RBC) [Mass/Vol] 35.4 g/dL [facility] Mean corpuscular hemoglobin concentration (MCHC) determinationOrdered By: Papi Hernandez on 10-24-2024 MCHC (RBC) [Mass/Vol] 34.7 g/dL [facility] Mean platelet volume determi nationOrdered By: Jerry Hightower on 10-24-2024 Platelet mean volume (Bld) [Entitic vol] 9.0 fL 6.2-12.0 [facility] Mean platelet volume determi nationOrdered By: Papi Hernandez on 10-24-2024 Platelet mean volume (Bld) [Entitic vol] 8.8 fL 6.2-12.0 [facility] Microscopic analysis of urin e for red blood cells (RBC)Ordered By: Jerry Hightower on 10-24-2024 Microscopic analysis of urine for red blood cells (RBC) 0-5 SEEN /hpf 0-5 [facility] Urine RBC 0-5 SEEN /hpf 0-5 [facility] Miscellaneous procedureOrder ed By: Papi Hernandez on 10-24-2024 Miscellaneous Test Comment SEE SCANNED REPORT [facility] Monocyte percentageOrdered B y: Jerry Hightower on 10-24-2024 Monocytes/100 WBC (Bld) 8.4 % 0-10 [facility] Monocyte percentageOrdered B y: Papi Hernandez on 10-24-2024 Monocytes/100 WBC (Bld) 9.7 % 0-10 [facility] Mucus LM Ql (Urine sed)Order ed By: Jerry Hightower on 10-24-2024 Mucus Ql (Urine sed) 0 SEEN /hpf [facility] NATERAon 10-24-2024 NATURA SEE SCANNED REPORT Normal [facility] Comment on above: Performed By: #### L 900.0098, L504.2610, L100.0100, L500.4050 ####[facility] [address] [place], [address] Neutrophil percentageOrdered By: Jerry Hightower on 10-24-2024 Neutrophils/100 WBC (Bld) 77.1 % High 47-70 [facility] Neutrophil percentageOrdered By: Papi Hernandez on 10-24-2024 Neutrophils/100 WBC (Bld) 73.8 % High 47-70 [facility] Nitrite Test strip Ql (U)Ord ered By: Jerry Hightower on 10-24-2024 Nitrite Ql (U) Negative Negative [facility] No Panel InformationOrdered By: Jerry Hightower on 10-24-2024 27 U/L <38 [facility] No Panel InformationOrdered By: Papi Hernandez on 10-24-2024 27 U/L <38 [facility] Nucleated red blood cell per centageOrdered By: Jerry Hightower on 10-24-2024 Nucleated RBC/100 WBC (Bld) [Ratio] 0 % 0-5 [facility] Nucleated red blood cell per centageOrdered By: Papi Hernandez on 10-24-2024 Nucleated RBC/100 WBC (Bld) [Ratio] 0 % 0-5 [facility] Platelet countOrdered By: Avinash Hightower on 10-24-2024 Platelets (Bld) [#/Vol] 307 10*3/uL 150-450 [facility] Platelet countOrdered By: Santa Hernandez on 10-24-2024 Platelets (Bld) [#/Vol] 299 10*3/uL 150-450 [facility] Potassium (Unsp spec) [Mass/ Vol]Ordered By: Jerry Hightower on 10-24-2024 Potassium [Moles/Vol] 3.8 mmol/L 3.3-5.1 [facility] Potassium (Unsp spec) [Mass/ Vol]Ordered By: Papi Hernandez on 10-24-2024 Potassium [Moles/Vol] 4.2 mmol/L 3.3-5.1 [facility] Potassium measurement (mass/ volume)Ordered By: Jerry Hightower on 10-24-2024 Potassium (Unsp spec) [Mass/Vol] 3.8 mmol/L 3.3-5.1 [facility] Potassium measurement (mass/ volume)Ordered By: Papi Hernandez on 10-24-2024 Potassium (Unsp spec) [Mass/Vol] 4.2 mmol/L 3.3-5.1 [facility] Protein Test strip Ql (U)Ord ered By: Jerry Hightower on 10-24-2024 Protein Ql (U) 15 mg/dl High Negative [facility] RBC Auto (Bld) [#/Vol]Ordere d By: Jerry Hightower on 10-24-2024 RBC (Bld) [#/Vol] 4.25 10*6/uL Low 4.6-6.2 [facility] RBC Auto (Bld) [#/Vol]Ordere d By: Papi Hernandez on 10-24-2024 RBC (Bld) [#/Vol] 4.28 10*6/uL Low 4.6-6.2 [facility] Serum creatinine measurement (mass/volume)Ordered By: Jerry Hightower on 10-24-2024 Creatinine [Mass/Vol] 0.94 mg/dL 0.70-1.20 [facility] Serum creatinine measurement (mass/volume)Ordered By: Papi Hernandez on 10-24-2024 Creatinine [Mass/Vol] 0.90 mg/dL 0.70-1.20 [facility] Serum globulin measurementOr dered By: Jerry Hightower on 10-24-2024 Globulin (S) [Mass/Vol] 3.0 g/dL 2.2-4.2 [facility] Serum globulin measurementOr dered By: Papi Hernandez on 10-24-2024 Globulin (S) [Mass/Vol] 2.9 g/dL 2.2-4.2 [facility] Serum glucose measurement (m ass/volume)Ordered By: Jerry Hightower on 10-24-2024 Glucose [Mass/Vol] 105 mg/dL High 70-99 [facility] Serum glucose measurement (m ass/volume)Ordered By: Papi Hernandez on 10-24-2024 Glucose [Mass/Vol] 107 mg/dL High 70-99 [facility] Serum or plasma alanine carrion otransferase (ALT) measurementOrdered By: Jerry Hightower on 10-24-2024 ALT [Catalytic activity/Vol] 17 U/L <47 [facility] Serum or plasma alanine carrion otransferase (ALT) measurementOrdered By: Papi Hernandez on 10-24-2024 ALT [Catalytic activity/Vol] 16 U/L <47 [facility] Serum or plasma albumin shagufta urement (mass/volume)Ordered By: Jerry Hightower on 10-24-2024 Albumin [Mass/Vol] 4.3 g/dL 3.4-4.8 [facility] Serum or plasma albumin shagufta urement (mass/volume)Ordered By: Papi Hernandez on 10-24-2024 Albumin [Mass/Vol] 4.2 g/dL 3.4-4.8 [facility] Serum or plasma albumin/glob ulin mass ratioOrdered By: Jerry Hightower on 10-24-2024 Albumin/Globulin [Mass ratio] 1.4 {ratio} 0.9-2.4 [facility] Serum or plasma albumin/glob ulin mass ratioOrdered By: Papi Hernandez on 10-24-2024 Albumin/Globulin [Mass ratio] 1.4 {ratio} 0.9-2.4 [facility] Serum or plasma alkaline airam sphatase measurementOrdered By: Jerry Hightower on 10-24-2024 ALP [Catalytic activity/Vol] 103 U/L 40-129 [facility] Serum or plasma alkaline airam sphatase measurementOrdered By: Papi Hernandez on 10-24-2024 ALP [Catalytic activity/Vol] 100 U/L 40-129 [facility] Serum or plasma calcium shagufta urement (mass/volume)Ordered By: Jerry Hightower on 10-24-2024 Calcium [Mass/Vol] 9.2 mg/dL 7.6-11.0 [facility] Serum or plasma calcium shagufta urement (mass/volume)Ordered By: Papi Hernandez on 10-24-2024 Calcium [Mass/Vol] 9.2 mg/dL 7.6-11.0 [facility] Serum or plasma carcinoembry onic antigen measurement (mass/volume)Ordered By: Papi Hernadnez on 10-24-2024 Carcinoembryonic Ag [Mass/Vol] 25.2 ng/mL High 0.0-4.7 [facility] Comment on above: Nonsmokers <3.9 Smok ers <5.6[employer] Electrochemiluminescence Immunoassay(ECLIA)Values obtained with different assay methods or kitscannot be used interchangeably. Results cannot beinterpreted as absolute evidence of the presence orabsence of malignant disease.Performed at: [facility] [id number] Director: Jian Paredes PhD, Phone: [phone] Serum or plasma urea nitroge n measurement (mass/volume)Ordered By: Jerry Hightower on 10-24-2024 Urea nitrogen [Mass/Vol] 11 mg/dL 11-17 [facility] Serum or plasma urea nitroge n measurement (mass/volume)Ordered By: Papi Hernandez on 10-24-2024 Urea nitrogen [Mass/Vol] 11 mg/dL 11-17 [facility] Sodium levelOrdered By: Natalie Hightower on 10-24-2024 Sodium [Moles/Vol] 130 mmol/L Low 133-145 [facility] Sodium levelOrdered By: Stephan Hernandez on 10-24-2024 Sodium [Moles/Vol] 131 mmol/L Low 133-145 [facility] Squamous epithelial cells de tection in urine sediment by light microscopyOrdered By: Jerry Hightower on 10-24-2024 Epithelial cells.squamous LM Ql (Urine sed) 0-5 SEEN /hpf 0-5 [facility] Testicular with Arterial Tommy won 10-24-2024 Testicular with Arterial Flow Normal [facility] Total proteinOrdered By: Renay Hightower on 10-24-2024 Protein [Mass/Vol] 7.3 g/dL 5.9-8.4 [facility] Total proteinOrdered By: Thang Hernandez on 10-24-2024 Protein [Mass/Vol] 7.0 g/dL 5.9-8.4 [facility] Urinalysis, Completeon 10-24 EPI,SQUAMOUS 0-5 SEEN Normal 0-5 [facility] Comment on above: Order Comment: CLEAN CATCH Performed By: #### L 400.0001 ####[facility] [address] [place], [address] RBC 0-5 SEEN Normal 0-5 [facility] Comment on above: Order Comment: CLEAN CATCH Performed By: #### L 400.0001 ####[facility] [address] [place], [address] BACTERIA 0 SEEN Normal None Seen [facility] Comment on above: Order Comment: CLEAN CATCH Performed By: #### L 400.0001 ####[facility] [address] [place], [address] Mucus Ql (Urine sed) 0 SEEN Normal [facility] Comment on above: Order Comment: CLEAN CATCH Performed By: #### L 400.0001 ####[facility] [address] [place], [address] WBC 0 SEEN Normal 0-5 [facility] Comment on above: Order Comment: CLEAN CATCH Performed By: #### L 400.0001 ####[facility] [address] [place], [address] Urine blood detectionOrdered By: Jerry Hightower on 10-24-2024 Urine Occult Blood Negative Negative [facility] Urine clarityOrdered By: Renay Hightower on 10-24-2024 Clarity (U) Clear Clear [facility] Urine color determinationOrd ered By: Jerry Hightower on 10-24-2024 Color (U) Straw Yellow [facility] Urine glucose detectionOrder ed By: Jerry Hightower on 10-24-2024 Glucose Ql (U) Normal mg/dl Normal [facility] Urine leukocyte esterase det ection by dipstickOrdered By: Jerry Hightower on 10-24-2024 Leukocyte esterase Test strip Ql (U) Negative Negative [facility] Urine pHOrdered By: Jerry garza on 10-24-2024 pH (U) 8.0 [pH] 5.0 - 8.0 [facility] Urine sediment bacteria coun t by microscopy (number/high power field)Ordered By: Jerry Hightower on 10-24-2024 Bacteria LM.HPF (Urine sed) [#/Area] 0 /[HPF] None Seen [facility] Urine specific gravity measu rementOrdered By: Jerry Hightower on 10-24-2024 Specific gravity (U) [Rel density] 1.010 1.002-1.030 [facility] Urine urobilinogen measureme ntOrdered By: Jerry Hightower on 10-24-2024 Urobilinogen Ql (U) Normal mg/dl Normal [facility] Urobilinogen Ql (U)Ordered B y: Jerry Hightower on 10-24-2024 Urine Urobilinogen Normal mg/dl Normal [facility] White blood cell (WBC) count Ordered By: Jerry Hightower on 10-24-2024 WBC (Bld) [#/Vol] 8.7 10*3/uL 4.4-11.0 [facility] White blood cell (WBC) count Ordered By: Papi Hernandez on 10-24-2024 WBC (Bld) [#/Vol] 8.8 10*3/uL 4.4-11.0 [facility] White blood cell countOrdere d By: Jerry Hightower on 10-24-2024 Urine WBC 0 SEEN /hpf 0-5 [facility] White blood cell count 0 SEEN /hpf 0-5 [facility] [place] Amorphous sediment detection in urine sediment by light microscopyOrdered By: Malinda Webster on 10-17-2024 Amorphous sediment LM Ql (Urine sed) 3+ [facility] Anion gap in Serum or Plasma Ordered By: Malinda Webster on 10-17-2024 Anion gap [Moles/Vol] 9 mmol/L 5-15 [facility] BUN/creatinine ratioOrdered By: Malinda Webster on 10-17-2024 Urea nitrogen/Creatinine [Mass ratio] 15.2 mg/mg 10- [facility] Basic Metabolic Profile (BMP )on 10-17-2024 BUN/CRE 15.2 RATIO Normal - [facility] Comment on above: Performed By: #### L 500.2500, L400.0001 ####[facility] [address] [place], [address] Calcium [Mass/Vol] 9.7 mg/dL Normal 7.6-11.0 [facility] Comment on above: Performed By: #### L 500.2500, L400.0001 ####[facility] [address] [place], [address] Chloride [Moles/Vol] 93 mmol/L Low 98-108 [facility] Comment on above: Performed By: #### L 500.2500, L400.0001 ####[facility] [address] [place], [address] CO2 [Moles/Vol] 27.4 mmol/L Normal 21.0-32.0 [facility] Comment on above: Performed By: #### L 500.2500, L400.0001 ####[facility] [address] [place], [address] Creatinine [Mass/Vol] 1.06 mg/dL Normal 0.70-1.20 [facility] Comment on above: Performed By: #### L 500.2500, L400.0001 ####[facility] [address] [place], [address] GAP 9 Normal 5-15 [facility] Comment on above: Performed By: #### L 500.2500, L400.0001 ####[facility] [address] [place], [address] GFR/1.73 sq M.predicted among non-blacks MDRD (S/P/Bld) [Vol rate/Area] 71 mL/min/{1.73_m2} Normal >60 [facility] Comment on above: Result Comment: mL/m in/1.73m2 CKD-EPI Creatinine Equation (2020) Performed By: #### L 500.2500, L400.0001 ####[facility] [address] [place], [address] Glucose [Mass/Vol] 100 mg/dL High 70-99 [facility] Comment on above: Performed By: #### L 500.2500, L400.0001 ####[facility] [address] [place], [address] Potassium [Moles/Vol] 4.5 mmol/L Normal 3.3-5.1 [facility] Comment on above: Performed By: #### L 500.2500, L400.0001 ####[facility] [address] [place], [address] Sodium [Moles/Vol] 130 mmol/L Low 133-145 [facility] Comment on above: Performed By: #### L 500.2500, L400.0001 ####[facility] [address] [place], [address] Urea nitrogen [Mass/Vol] 16 mg/dL Normal -19 [facility] Comment on above: Performed By: #### L 500.2500, L400.0001 ####[facility] [address] [place], [address] Bilirubin Test strip Ql (U)O rdered By: Malinda Webster on 10-17-2024 Bilirubin Ql (U) Negative Negative [facility] Carbon dioxide, total [Moles /volume] in Central venous bloodOrdered By: Malinda Webster on 10-17-2024 CO2 [Moles/Vol] 27.4 mmol/L 21.0-32.0 [facility] Cardiology Visit Reporton Cardiology Visit Report Normal [facility] Chloride assayOrdered By: Santa Webster on 10-17-2024 Chloride [Moles/Vol] 93 mmol/L Low 98-108 [facility] Epithelial cells.squamous LM Ql (Urine sed)Ordered By: Malinda Webster on 10-17-2024 Epithelial cells.squamous LM.HPF (Urine sed) [#/Area] 0 /[HPF] 0-5 [facility] GFR/1.73 sq M.predicted gregg g non-blacks MDRD (S/P/Bld) [Vol rate/Area]Ordered By: Malinda Webster on 10-17-2024 Estimated GFR (MDRD) Non-Af Amer 71 >60 [facility] Comment on above: mL/min/1.73m2 CKD-EP I Creatinine Equation (2020) Glomerular filtration rate ( GFR) estimation/1.73 sq m using serum, plasma, or whole bOrdered By: Malinda Webster on 10-17-2024 GFR/1.73 sq M.predicted among non-blacks MDRD (S/P/Bld) [Vol rate/Area] 71 mL/min/{1.73_m2} >60 [facility] Comment on above: mL/min/1.73m2 CKD-EP I Creatinine Equation (2020) Glucose Ql (U)Ordered By: Santa Webster on 10-17-2024 Urine Glucose (UA) Normal mg/dl Normal [facility] Ketones Test strip Ql (U)Ord ered By: Malinda Webster on 10-17-2024 Ketones Ql (U) Negative Negative [facility] Microscopic analysis of urin e for red blood cells (RBC)Ordered By: Malinda Webster on 10-17-2024 Microscopic analysis of urine for red blood cells (RBC) 0 SEEN /hpf 0-5 [facility] Urine RBC 0 SEEN /hpf 0-5 [facility] Mucus LM Ql (Urine sed)Order ed By: Malinda Webster on 10-17-2024 Mucus Ql (Urine sed) 0 SEEN /hpf [facility] Nitrite Test strip Ql (U)Ord ered By: Malinda Webster on 10-17-2024 Nitrite Ql (U) Negative Negative [facility] Potassium (Unsp spec) [Mass/ Vol]Ordered By: Malinda Webster on 10-17-2024 Potassium [Moles/Vol] 4.5 mmol/L 3.3-5.1 [facility] Potassium measurement (mass/ volume)Ordered By: Malinda Webster on 10-17-2024 Potassium (Unsp spec) [Mass/Vol] 4.5 mmol/L 3.3-5.1 [facility] Protein Test strip Ql (U)Ord ered By: Malinda Webster on 10-17-2024 Protein Ql (U) 30 mg/dl High Negative [facility] Serum creatinine measurement (mass/volume)Ordered By: Malinda Webster on 10-17-2024 Creatinine [Mass/Vol] 1.06 mg/dL 0.70-1.20 [facility] Serum glucose measurement (m ass/volume)Ordered By: Malinda Webster on 10-17-2024 Glucose [Mass/Vol] 100 mg/dL High 70-99 [facility] Serum or plasma calcium shagufta urement (mass/volume)Ordered By: Malinda Webster on 10-17-2024 Calcium [Mass/Vol] 9.7 mg/dL 7.6-11.0 [facility] Serum or plasma urea nitroge n measurement (mass/volume)Ordered By: Malinda Webster on 10-17-2024 Urea nitrogen [Mass/Vol] 16 mg/dL 4-19 [facility] Sodium levelOrdered By: Malinda Webster on 10-17-2024 Sodium [Moles/Vol] 130 mmol/L Low 133-145 [facility] Squamous epithelial cells de tection in urine sediment by light microscopyOrdered By: Malinda Webster on 10-17-2024 Epithelial cells.squamous LM Ql (Urine sed) 0 SEEN /hpf 0-5 [facility] Urinalysis, Completeon 10-17 AMORPHOUS 3+ Normal [facility] Comment on above: Order Comment: BOB CTOR TO SPECIFY Performed By: #### L 500.2500, L400.0001 ####[facility] [address] [place], [address] BACTERIA 2+ /hpf Normal None Seen [facility] Comment on above: Order Comment: BOB CTOR TO SPECIFY Performed By: #### L 500.2500, [id number] ####[facility] [address] [place], [address] RBC 0 SEEN Normal 0-5 [facility] Comment on above: Order Comment: BOB CTOR TO SPECIFY Performed By: #### L 500.2500, [id number] ####[facility] [address] [place], [address] EPI,SQUAMOUS 0 SEEN Normal 0-5 [facility] Comment on above: Order Comment: BOB CTOR TO SPECIFY Performed By: #### L 500.2500, [id number] ####[facility] [address] [place], [address] Mucus Ql (Urine sed) 0 SEEN Normal [facility] Comment on above: Order Comment: BOB CTOR TO SPECIFY Performed By: #### L 500.2500, [id number] ####[facility] [address] [place], [place], [address] WBC 0 SEEN Normal 0-5 [facility] Comment on above: Order Comment: BOB CTOR TO SPECIFY Performed By: #### L 500.2500, [id number] ####[facility] [address] [place], [place], [id number] Urine blood detectionOrdered By: Malinda Webster on 10-17-2024 Urine Occult Blood Negative Negative [facility] Urine clarityOrdered By: Marcelo Webster on 10-17-2024 Clarity (U) Sl. Cloudy Clear [facility] Urine color determinationOrd ered By: Malinda Webster on 10-17-2024 Color (U) Yellow Yellow [facility] Urine glucose detectionOrder ed By: Malinda Webster on 10-17-2024 Glucose Ql (U) Normal mg/dl Normal [facility] Urine leukocyte esterase det ection by dipstickOrdered By: Malinda Webster on 10-17-2024 Leukocyte esterase Test strip Ql (U) Negative Negative [facility] Urine pHOrdered By: Malinda vallejo on 10-17-2024 pH (U) 8.0 [pH] 5.0 - 8.0 [facility] Urine sediment bacteria coun t by microscopy (number/high power field)Ordered By: Malinda Webster on 10-17-2024 Bacteria LM.HPF (Urine sed) [#/Area] 2 /[HPF] None Seen [facility] Urine specific gravity measu rementOrdered By: Malinda Webster on 10-17-2024 Specific gravity (U) [Rel density] 1.015 1.002-1.030 [facility] Urine urobilinogen measureme ntOrdered By: Malinda Webster on 10-17-2024 Urobilinogen Ql (U) Normal mg/dl Normal [facility] Urobilinogen Ql (U)Ordered B y: Malinda Webster on 10-17-2024 Urine Urobilinogen Normal mg/dl Normal [facility] White blood cell countOrdere d By: Malinda Webster on 10-17-2024 Urine WBC 0 SEEN /hpf 0-5 [facility] White blood cell count 0 SEEN /hpf 0-5 [facility] [place] Absolute lymphocyte countOrd ered By: Mariela Shahram on 09-05-2024 Lymphocytes Auto (Unsp spec) [#/Vol] 1.41 10*3/uL 0.83-4.51 [facility] Absolute neutrophil countOrd ered By: [facility] on 09-05-2024 Neutrophils (Bld) [#/Vol] 4.1 10*3/uL 2.0-7.7 [facility] Albumin to globulin ratioOrd ered By: [facility] on 09-05-2024 Albumin/Globulin [Mass ratio] 1.0 {ratio} 0.9-2.4 [facility] Automated lymphocyte count a s percentage of total leukocytesOrdered By: [facility] on 09-05-2024 Lymphocytes/100 WBC Auto (Unsp spec) 22.2 % 19-41 [facility] Basophil percentageOrdered B y: [facility] on 09-05-2024 Basophils/100 WBC (Bld) 0.3 % 0-1 [facility] Bilirubin, totalOrdered By: [facility] on 09-05-2024 Bilirubin [Mass/Vol] 0.80 mg/dL 0.20-1.00 [facility] Comment on above: For patients on eltr ombopag therapy, use of Dimension [place] TBIL is not recommended. Blood urea nitrogen (BUN)/cr eatinine ratioOrdered By: [facility] on 09-05-2024 Urea nitrogen/Creatinine [Mass ratio] 13.0 mg/mg 10-20 [facility] CBC W/Diff, Automatedon Absolute Lymph 1.41 X10 3/uL Normal 0.83-4.51 [facility] Comment on above: Performed By: #### L 500.4050, L100.0100 ####[facility] [address] [place], [place], [id number] Absolute Neut 4.1 X10 3/uL Normal 2.0-7.7 [facility] Comment on above: Performed By: #### L 500.4050, L100.0100 ####[facility] [address] [place], [address] Basophils/100 WBC (Bld) 0.3 % Normal 0-1 [facility] Comment on above: Performed By: #### L 500.4050, L100.0100 ####[facility] [address] [place], [address] Eosinophils/100 WBC (Bld) 3.1 % Normal 0-5 [facility] Comment on above: Performed By: #### L 500.4050, L100.0100 ####[facility] [address] [place], [address] Erythrocyte distribution width (RBC) [Ratio] 13.3 % Normal 11.6-14.6 [facility] Comment on above: Performed By: #### L 500.4050, L100.0100 ####[facility] [address] [place], [address] Hematocrit (Bld) [Volume fraction] 39.9 % Low 40-54 [facility] Comment on above: Performed By: #### L 500.4050, L100.0100 ####[facility] [address] [place], [address] Hemoglobin (Bld) [Mass/Vol] 13.3 g/dL Normal 13.0-16.5 [facility] Comment on above: Performed By: #### L 500.4050, L100.0100 ####[facility] [address] [place], [address] IG% 0.200 Normal 0.0-0.9 [facility] Comment on above: Result Comment: IG% - Immature Granulocytes (promyelocytes, myelocytes andmetamyelocytes) > 1% indicates that a LEFT SHIFT is Present. Performed By: #### L 500.4050, L100.0100 ####[facility] [address] [place], [address] Lymphocytes/100 WBC (Bld) 22.2 % Normal 19-41 [facility] Comment on above: Performed By: #### L 500.4050, L100.0100 ####[facility] [address] [place], [address] MCH (RBC) [Entitic mass] 29.6 pg Normal 27.0-32.0 [facility] Comment on above: Performed By: #### L 500.4050, L100.0100 ####[facility] [address] [place], [address] MCHC (RBC) [Mass/Vol] 33.3 g/dL Normal 32-36 [facility] Comment on above: Performed By: #### L 500.4050, L100.0100 ####[facility] [address] [place], [address] MCV (RBC) [Entitic vol] 88.7 fL Normal 80-94 [facility] Comment on above: Performed By: #### L 500.4050, L100.0100 ####[facility] [address] [place], [address] Monocytes/100 WBC (Bld) 10.2 % High 0-10 [facility] Comment on above: Performed By: #### L 500.4050, L100.0100 ####[facility] [address] [place], [address] Neutrophils/100 WBC (Bld) 64.0 % Normal 47-70 [facility] Comment on above: Performed By: #### L 500.4050, L100.0100 ####[facility] [address] [place], [address] Nucleated RBC (Bld) [#/Vol] 0 10*3/uL Normal 0-5 [facility] Comment on above: Performed By: #### L 500.4050, L100.0100 ####[facility] [address] [place], [address] Platelet mean volume (Bld) [Entitic vol] 9.8 fL Normal 6.2-12.0 [facility] Comment on above: Performed By: #### L 500.4050, L100.0100 ####[facility] [address] [place], [address] Platelets (Bld) [#/Vol] 274 10*3/uL Normal 150-450 [facility] Comment on above: Performed By: #### L 500.4050, L100.0100 ####[facility] [address] [place], [address] RBC (Bld) [#/Vol] 4.50 10*6/uL Low 4.6-6.2 [facility] Comment on above: Performed By: #### L 500.4050, L100.0100 ####[facility] [address] [place], [address] RDW SD 43.2 fl Normal 35.1-43.9 [facility] Comment on above: Performed By: #### L 500.4050, L100.0100 ####[facility] [address] [place], [address] WBC (Bld) [#/Vol] 6.4 10*3/uL Normal 4.4-11.0 [facility] Comment on above: Performed By: #### L 500.4050, L100.0100 ####[facility] [address] [place], [address] Carbon dioxide measurementOr dered By: Mariela Olson on 09-05-2024 CO2 [Moles/Vol] 30.0 mmol/L 21.0-32.0 [facility] Chloride measurementOrdered By: Mariela Olson on 09-05-2024 Chloride [Moles/Vol] 98 mmol/L 98-107 [facility] Comprehensive Metabolic Prof ilon 09-05-2024 Albumin [Mass/Vol] 3.8 g/dL Normal 3.2-5.0 [facility] Comment on above: Performed By: #### L 500.4050, L100.0100 ####[facility] [address] [place], [address] Albumin/Globulin [Mass ratio] 1.0 {ratio} Normal 0.9-2.4 [facility] Comment on above: Performed By: #### L 500.4050, L100.0100 ####[facility] [address] [place], [address] ALK P 106 U/L Normal 45-117 [facility] Comment on above: Performed By: #### L 500.4050, L100.0100 ####[facility] [address] [place], [address] ALT [Catalytic activity/Vol] 30 U/L Normal 16-61 [facility] Comment on above: Performed By: #### L 500.4050, L100.0100 ####[facility] [address] [place], [address] AST [Catalytic activity/Vol] 27 U/L Normal 15-37 [facility] Comment on above: Performed By: #### L 500.4050, L100.0100 ####[facility] [address] [place], [address] Bilirubin [Mass/Vol] 0.80 mg/dL Normal 0.20-1.00 [facility] Comment on above: Result Comment: For patients on eltrombopag therapy, use of Dimension [place] TBIL is not recommended. Performed By: #### L 500.4050, L100.0100 ####[facility] [address] [place], [address] BUN/CRE 13.0 RATIO Normal 10-20 [facility] Comment on above: Performed By: #### L 500.4050, L100.0100 ####[facility] [address] [place], [address] CA,Total 9.8 mg/dL Normal 8.5-10.1 [facility] Comment on above: Performed By: #### L 500.4050, L100.0100 ####[facility] [address] [place], [address] Chloride [Moles/Vol] 98 mmol/L Normal 98-107 [facility] Comment on above: Performed By: #### L 500.4050, L100.0100 ####[facility] [address] [place], [address] CO2 [Moles/Vol] 30.0 mmol/L Normal 21.0-32.0 [facility] Comment on above: Performed By: #### L 500.4050, L100.0100 ####[facility] [address] [place], [address] Creatinine [Mass/Vol] 1.23 mg/dL Normal 0.70-1.30 [facility] Comment on above: Result Comment: The validity of the calculated GFR GFRAA in patients over70 years has not been determined. Clinical correlation isessential. Performed By: #### L 500.4050, L100.0100 ####[facility] [address] [place], [address] EST GFR - AA 73 mL/min Normal >60 [facility] Comment on above: Result Comment: Afri can Ethiopian GFR Calc Performed By: #### L 500.4050, L100.0100 ####[facility] [address] [place], [address] GAP 7 Normal 5-15 [facility] Comment on above: Performed By: #### L 500.4050, L100.0100 ####[facility] [address] [place], [address] GFR/1.73 sq M.predicted among non-blacks MDRD (S/P/Bld) [Vol rate/Area] 60 mL/min/{1.73_m2} Normal >60 [facility] Comment on above: Result Comment: Non- GFR Calc Performed By: #### L 500.4050, L100.0100 ####[facility] [address] [place], [address] Globulin (S) [Mass/Vol] 3.7 g/dL Normal 2.2-4.2 [facility] Comment on above: Performed By: #### L 500.4050, L100.0100 ####[facility] [address] [place], [address] Glucose [Mass/Vol] 99 mg/dL Normal 74-106 [facility] Comment on above: Performed By: #### L 500.4050, L100.0100 ####[facility] [address] [place], [address] Potassium [Moles/Vol] 4.3 mmol/L Normal 3.5-5.1 [facility] Comment on above: Performed By: #### L 500.4050, L100.0100 ####[facility] [address] [place], [address] Sodium [Moles/Vol] 135 mmol/L Low 136-145 [facility] Comment on above: Performed By: #### L 500.4050, L100.0100 ####[facility] [address] [place], [address] T PROT 7.5 g/dL Normal 6.4-8.2 [facility] Comment on above: Performed By: #### L 500.4050, L100.0100 ####[facility] [address] [place], [place], [address] Urea nitrogen [Mass/Vol] 16 mg/dL Normal 7-18 [facility] Comment on above: Performed By: #### L 500.4050, L100.0100 ####[facility] [address] [place], [address] Eosinophil percentageOrdered By: Marielabruce Olson on 09-05-2024 Eosinophils/100 WBC (Bld) 3.1 % 0-5 [facility] Erythrocyte distribution wid th ratioOrdered By: [facility] on 09-05-2024 Erythrocyte distribution width (RBC) [Ratio] 13.3 % 11.6-14.6 [facility] Erythrocyte distribution wid th standard deviationOrdered By: Mariela Shahram on 09-05-2024 Erythrocyte distribution width (RBC) [Entitic vol] 43.2 fL 35.1-43.9 [facility] Erythrocyte distribution width (RBC) [Ratio] 43.2 fl 35.1-43.9 [facility] Estimated glomerular filtrat ion rate (GFR) AmericanOrdered By: Marielabruce Olson on 09-05-2024 Estimated GFR (MDRD) Amer 73 mL/min >60 [facility] Comment on above: GFR Calc Glomerular filtration rate ( GFR) estimationOrdered By: Mariela Olson on 09-05-2024 Estimated GFR (MDRD) Non-Af Amer 60 mL/min >60 [facility] Comment on above: Non- GFR Calc GFR/1.73 sq M.predicted among non-blacks MDRD (S/P/Bld) [Vol rate/Area] 60 mL/min/{1.73_m2} >60 [facility] Comment on above: Non- GFR Calc Glucose measurementOrdered B y: Mariela Olson on 09-05-2024 Glucose [Mass/Vol] 99 mg/dL 74-106 [facility] Hematocrit Auto (Bld) [Volum e fraction]Ordered By: Mariela Olson on 09-05-2024 Hematocrit (Bld) [Volume fraction] 39.9 % Low 40-54 [facility] Hemoglobin measurementOrdere d By: Mariela Olson on 09-05-2024 Hemoglobin (Bld) [Mass/Vol] 13.3 g/dL 13.0-16.5 [facility] Immature granulocytes/100 WB C Auto (Bld)Ordered By: Mariela Olson on 09-05-2024 Immature granulocytes/100 WBC (Bld) 0.200 % 0.0-0.9 [facility] Comment on above: IG% - Immature Granu locytes (promyelocytes, myelocytes and metamyelocytes) > 1% indicates that a LEFT SHIFT is Present. Laboratory - Chemistry and C hemistry - challengeOrdered By: Mariela Olson on 09-05-2024 AST [Catalytic activity/Vol] 27 U/L 15-37 [facility] Lymphocytes Auto (Unsp spec) [#/Vol]Ordered By: Marielabruce Olson on 09-05-2024 Lymphocytes (Bld) [#/Vol] 1.41 10*3/uL 0.83-4.51 [facility] Lymphocytes/100 WBC Auto (Un sp spec)Ordered By: Mariela Olson on 09-05-2024 Lymphocytes/100 WBC (Bld) 22.2 % 19-41 [facility] MCV (mean corpuscular volume ) determinationOrdered By: Mariela Olson on 09-05-2024 MCV (RBC) [Entitic vol] 88.7 fL 80-94 [facility] Mean corpuscular hemoglobin (MCH) determinationOrdered By: Mariela Olson on 09-05-2024 MCH (RBC) [Entitic mass] 29.6 pg 27.0-32.0 [facility] Mean corpuscular hemoglobin concentration (MCHC) determinationOrdered By: Marielabruce Olson on 09-05-2024 MCHC (RBC) [Mass/Vol] 33.3 g/dL 32-36 [facility] Mean platelet volume determi nationOrdered By: Mariela Olson on 09-05-2024 Platelet mean volume (Bld) [Entitic vol] 9.8 fL 6.2-12.0 [facility] Monocyte percentageOrdered B y: Mariela Olson on 09-05-2024 Monocytes/100 WBC (Bld) 10.2 % High 0-10 [facility] Neutrophil percentageOrdered By: Mariela Olson on 09-05-2024 Neutrophils/100 WBC (Bld) 64.0 % 47-70 [facility] No Panel InformationOrdered By: Mariela Olson on 09-05-2024 27 U/L 15-37 [facility] Nucleated red blood cell per centageOrdered By: Mariela Olson on 09-05-2024 Nucleated RBC/100 WBC (Bld) [Ratio] 0 % 0-5 [facility] Platelet countOrdered By: Ra caio Olson on 09-05-2024 Platelets (Bld) [#/Vol] 274 10*3/uL 150-450 [facility] Potassium measurementOrdered By: Mariela Olson on 09-05-2024 Potassium [Moles/Vol] 4.3 mmol/L 3.5-5.1 [facility] RBC Auto (Bld) [#/Vol]Ordere d By: Mariela Olson on 09-05-2024 RBC (Bld) [#/Vol] 4.50 10*6/uL Low 4.6-6.2 [facility] Serum anion gap measurementO rdered By: Mariela Olson on 09-05-2024 Anion gap [Moles/Vol] 7 mmol/L 5-15 [facility] Serum globulin measurementOr dered By: Mariela Olson on 09-05-2024 Globulin (S) [Mass/Vol] 3.7 g/dL 2.2-4.2 [facility] Serum or plasma alanine carrion otransferase (ALT) measurementOrdered By: Mariela Olson on 09-05-2024 ALT [Catalytic activity/Vol] 30 U/L 16-61 [facility] Serum or plasma albumin shagufta urement (mass/volume)Ordered By: Mariela Olson on 09-05-2024 Albumin [Mass/Vol] 3.8 g/dL 3.2-5.0 [facility] Serum or plasma alkaline airam sphatase measurementOrdered By: Mariela Olson on 09-05-2024 ALP [Catalytic activity/Vol] 106 U/L 45-117 [facility] Serum or plasma calcium shagufta urement (mass/volume)Ordered By: Mariela Olson 09-05-2024 Calcium [Mass/Vol] 9.8 mg/dL 8.5-10.1 [facility] Serum or plasma creatinine m easurement (mass/volume)Ordered By: Mariela Cifuentesgar on 09-05-2024 Creatinine [Mass/Vol] 1.23 mg/dL 0.70-1.30 [facility] Comment on above: The validity of the calculated GFR & GFRAA in patients over 70 years has not been determined. Clinical correlation is essential. Serum or plasma urea nitroge n measurement (mass/volume)Ordered By: Mariela Olson on 09-05-2024 Urea nitrogen [Mass/Vol] 16 mg/dL 7-18 [facility] Sodium levelOrdered By: Ana M el Shahram on 09-05-2024 Sodium [Moles/Vol] 135 mmol/L Low 136-145 [facility] Total proteinOrdered By: Hortencia bruce Shahram on 09-05-2024 Protein [Mass/Vol] 7.5 g/dL 6.4-8.2 [facility] White blood cell (WBC) count Ordered By: Mariela Olson on 09-05-2024 WBC (Bld) [#/Vol] 6.4 10*3/uL 4.4-11.0 [facility] Oncology Visit Reporton Oncology Visit Report Normal [facility] Carcinoembryonic Antigenon 09-19-2023 CEA 6.6 ng/mL High 0.0-4.7 [facility] Comment on above: Result Comment: Nons mokers <3.9 Smokers <5.6[employer] Electrochemiluminescence Immunoassay(ECLIA)Values obtained with different assay methods or kitscannot be used interchangeably. Results cannot beinterpreted as absolute evidence of the presence orabsence of malignant disease.Performed at: [employer] [address] [id number] Director: Jian Paredes PhD, Phone: [phone] Performed By: #### L 500.6697, L100.0100, L3100.1995 ####[facility] [address] [place], [place], [id number] CBC W/Diff, Automatedon 12- Absolute Lymph 1.90 X10 3/uL Normal 0.83-4.51 [facility] Comment on above: Performed By: #### L 500.4050, L100.0100, L3100.2300 ####[facility] [address] [place], [address] Absolute Neut 3.9 X10 3/uL Normal 2.0-7.7 [facility] Comment on above: Performed By: #### L 500.4050, L100.0100, L3100.2300 ####[facility] [address] [place], [address] Basophils/100 WBC (Bld) 0.3 % Normal 0-1 [facility] Comment on above: Performed By: #### L 500.4050, L100.0100, L3100.2300 ####[facility] [address] [place], [address] Eosinophils/100 WBC (Bld) 5.3 % High 0-5 [facility] Comment on above: Performed By: #### L 500.4050, L100.0100, L3100.2300 ####[facility] [address] [place], [address] Erythrocyte distribution width (RBC) [Ratio] 17.1 % High 11.6-14.6 [facility] Comment on above: Performed By: #### L 500.4050, L100.0100, L3100.2300 ####[facility] [address] [place], [address] Hematocrit (Bld) [Volume fraction] 36.4 % Low 40-54 [facility] Comment on above: Performed By: #### L 500.4050, L100.0100, L3100.2300 ####[facility] [address] [place], [address] Hemoglobin (Bld) [Mass/Vol] 11.8 g/dL Low 13.0-16.5 [facility] Comment on above: Performed By: #### L 500.4050, L100.0100, L3100.2300 ####[facility] [address] [place], [address] IG% 0.300 Normal 0.0-0.9 [facility] Comment on above: Result Comment: IG% - Immature Granulocytes (promyelocytes, myelocytes andmetamyelocytes) > 1% indicates that a LEFT SHIFT is Present. Performed By: #### L 500.4050, L100.0100, L3100.2300 ####[facility] [address] [place], [address] Lymphocytes/100 WBC (Bld) 27.4 % Normal 19-41 [facility] Comment on above: Performed By: #### L 500.4050, L100.0100, L3100.2300 ####[facility] [address] [place], [address] MCH (RBC) [Entitic mass] 28.1 pg Normal 27.0-32.0 [facility] Comment on above: Performed By: #### L 500.4050, L100.0100, L3100.2300 ####[facility] [address] [place], [address] MCHC (RBC) [Mass/Vol] 32.4 g/dL Normal 32-36 [facility] Comment on above: Performed By: #### L 500.4050, L100.0100, L3100.2300 ####[facility] [address] [place], [address] MCV (RBC) [Entitic vol] 86.7 fL Normal 80-94 [facility] Comment on above: Performed By: #### L 500.4050, L100.0100, L3100.2300 ####[facility] [address] [place], [address] Monocytes/100 WBC (Bld) 11.1 % High 0-10 [facility] Comment on above: Performed By: #### L 500.4050, L100.0100, L3100.2300 ####[facility] [address] [place], [address] Neutrophils/100 WBC (Bld) 55.6 % Normal 47-70 [facility] Comment on above: Performed By: #### L 500.4050, L100.0100, L3100.2300 ####[facility] [address] [place], [address] Nucleated RBC (Bld) [#/Vol] 0 10*3/uL Normal 0-5 [facility] Comment on above: Performed By: #### L 500.4050, L100.0100, L3100.2300 ####[facility] [address] [place], [address] Platelet mean volume (Bld) [Entitic vol] 9.4 fL Normal 6.2-12.0 [facility] Comment on above: Performed By: #### L 500.4050, L100.0100, L3100.2300 ####[facility] [address] [place], [address] Platelets (Bld) [#/Vol] 230 10*3/uL Normal 150-450 [facility] Comment on above: Performed By: #### L 500.4050, L100.0100, L3100.2300 ####[facility] [address] [place], [address] RBC (Bld) [#/Vol] 4.20 10*6/uL Low 4.6-6.2 [facility] Comment on above: Performed By: #### L 500.4050, L100.0100, L3100.2300 ####[facility] [address] [place], [address] RDW SD 54.4 fl High 35.1-43.9 [facility] Comment on above: Performed By: #### L 500.4050, L100.0100, L3100.2300 ####[facility] [address] [place], [address] WBC (Bld) [#/Vol] 6.9 10*3/uL Normal 4.4-11.0 [facility] Comment on above: Performed By: #### L 500.4050, L100.0100, L3100.2300 ####[facility] [address] [place], [address] Comprehensive Metabolic [facility] 07-18-2024 Albumin [Mass/Vol] 3.6 g/dL Normal 3.2-5.0 [facility] Comment on above: Performed By: #### L 500.4050, L100.0100, L3100.2300 ####[facility] [address] [place], [address] Albumin/Globulin [Mass ratio] 1.0 {ratio} Normal 0.9-2.4 [facility] Comment on above: Performed By: #### L 500.4050, L100.0100, L3100.2300 ####[facility] [address] [place], [address] ALK P 114 U/L Normal 45-117 [facility] Comment on above: Performed By: #### L 500.4050, L100.0100, L3100.2300 ####[facility] [address] [place], [address] ALT [Catalytic activity/Vol] 33 U/L Normal 16-61 [facility] Comment on above: Performed By: #### L 500.4050, L100.0100, L3100.2300 ####[facility] [address] [place], [address] AST [Catalytic activity/Vol] 25 U/L Normal 15-37 [facility] Comment on above: Performed By: #### L 500.4050, L100.0100, L3100.2300 ####[facility] [address] [place], [address] Bilirubin [Mass/Vol] 0.30 mg/dL Normal 0.20-1.00 [facility] Comment on above: Result Comment: For patients on eltrombopag therapy, use of Dimension [place] TBIL is not recommended. Performed By: #### L 500.4050, L100.0100, L3100.2300 ####[facility] [address] [place], [address] BUN/CRE 14.8 RATIO Normal 10-20 [facility] Comment on above: Performed By: #### L 500.4050, L100.0100, L3100.2300 ####[facility] [address] [place], [address] CA,Total 9.0 mg/dL Normal 8.5-10.1 [facility] Comment on above: Performed By: #### L 500.4050, L100.0100, L3100.2300 ####[facility] [address] [place], [address] Chloride [Moles/Vol] 104 mmol/L Normal 98-107 [facility] Comment on above: Performed By: #### L 500.4050, L100.0100, L3100.2300 ####[facility] [address] [place], [address] CO2 [Moles/Vol] 30.0 mmol/L Normal 21.0-32.0 [facility] Comment on above: Performed By: #### L 500.4050, L100.0100, L3100.2300 ####[facility] [address] [place], [address] Creatinine [Mass/Vol] 1.15 mg/dL Normal 0.70-1.30 [facility] Comment on above: Result Comment: The validity of the calculated GFR GFRAA in patients over70 years has not been determined. Clinical correlation isessential. Performed By: #### L 500.4050, L100.0100, L3100.2300 ####[facility] [address] [place], [address] ECRCL 47.90 ml/min Normal [facility] Comment on above: Performed By: #### L 500.4050, L100.0100, L3100.2300 ####[facility] [address] [place], [address] EST GFR - AA 79 mL/min Normal >60 [facility] Comment on above: Result Comment: Afri can Ethiopian GFR Calc Performed By: #### L 500.4050, L100.0100, L3100.2300 ####[facility] [address] [place], [address] GAP 2 Low 5-15 [facility] Comment on above: Performed By: #### L 500.4050, L100.0100, L3100.2300 ####[facility] [address] [place], [address] GFR/1.73 sq M.predicted among non-blacks MDRD (S/P/Bld) [Vol rate/Area] 65 mL/min/{1.73_m2} Normal >60 [facility] Comment on above: Result Comment: Non- GFR Calc Performed By: #### L 500.4050, L100.0100, L3100.2300 ####[facility] [address] [place], [address] Globulin (S) [Mass/Vol] 3.6 g/dL Normal 2.2-4.2 [facility] Comment on above: Performed By: #### L 500.4050, L100.0100, L3100.2300 ####[facility] [address] [place], [address] Glucose [Mass/Vol] 105 mg/dL Normal 74-106 [facility] Comment on above: Result Comment: Fast ing Glucose result from 100 to 125 mg/dLsuggests IMPAIRED HOMEOSTASIS per A.D.A. criteria. Performed By: #### L 500.4050, L100.0100, L3100.2300 ####[facility] [address] [place], [address] Potassium [Moles/Vol] 4.0 mmol/L Normal 3.5-5.1 [facility] Comment on above: Performed By: #### L 500.4050, L100.0100, L3100.2300 ####[facility] [address] [place], [address] Sodium [Moles/Vol] 136 mmol/L Normal 136-145 [facility] Comment on above: Performed By: #### L 500.4050, L100.0100, L3100.2300 ####[facility] [address] [place], [address] T PROT 7.2 g/dL Normal 6.4-8.2 [facility] Comment on above: Performed By: #### L 500.4050, L100.0100, L3100.2300 ####[facility] [address] [place], [address] Urea nitrogen [Mass/Vol] 17 mg/dL Normal 7-18 [facility] Comment on above: Performed By: #### L 500.4050, L100.0100, L3100.2300 ####[facility] [address] [place], [address] Estimated glomerular filtrat ion rate (GFR) AmericanOrdered By: Papi Hernandez on 07-18-2024 Estimated GFR (MDRD) Amer 79 mL/min >60 [facility] Comment on above: GFR Calc Oncology Visit Reporton 07-01 Oncology Visit Report Normal [facility] CBC W/Diff, Automatedon Absolute Lymph 1.59 X10 3/uL Normal 0.83-4.51 [facility] Comment on above: Performed By: #### L 300.3900, L100.0100 ####[facility] [address] [place], [address] Absolute Neut 3.4 X10 3/uL Normal 2.0-7.7 [facility] Comment on above: Performed By: #### L 300.3900, L100.0100 ####[facility] [address] [place], [address] Basophils/100 WBC (Bld) 0.5 % Normal 0-1 [facility] Comment on above: Performed By: #### L 300.3900, L100.0100 ####[facility] [address] [place], [address] Eosinophils/100 WBC (Bld) 4.7 % Normal 0-5 [facility] Comment on above: Performed By: #### L 300.3900, L100.0100 ####[facility] [address] [place], [address] Erythrocyte distribution width (RBC) [Ratio] 17.5 % High 11.6-14.6 [facility] Comment on above: Performed By: #### L 300.3900, L100.0100 ####[facility] [address] [place], [address] Hematocrit (Bld) [Volume fraction] 36.9 % Low 40-54 [facility] Comment on above: Performed By: #### L 300.3900, L100.0100 ####[facility] [address] [place], [address] Hemoglobin (Bld) [Mass/Vol] 11.5 g/dL Low 13.0-16.5 [facility] Comment on above: Performed By: #### L 300.3900, L100.0100 ####[facility] [address] [place], [address] IG% 0.300 Normal 0.0-0.9 [facility] Comment on above: Result Comment: IG% - Immature Granulocytes (promyelocytes, myelocytes andmetamyelocytes) > 1% indicates that a LEFT SHIFT is Present. Performed By: #### L 300.3900, L100.0100 ####[facility] [address] [place], [address] Lymphocytes/100 WBC (Bld) 26.6 % Normal 19-41 [facility] Comment on above: Performed By: #### L 300.3900, L100.0100 ####[facility] [address] [place], [address] MCH (RBC) [Entitic mass] 27.1 pg Normal 27.0-32.0 [facility] Comment on above: Performed By: #### L 300.3900, L100.0100 ####[facility] [address] [place], [address] MCHC (RBC) [Mass/Vol] 31.2 g/dL Low 32-36 [facility] Comment on above: Performed By: #### L 300.3900, L100.0100 ####[facility] [address] [place], [address] MCV (RBC) [Entitic vol] 87.0 fL Normal 80-94 [facility] Comment on above: Performed By: #### L 300.3900, L100.0100 ####[facility] [address] [place], [address] Monocytes/100 WBC (Bld) 10.5 % High 0-10 [facility] Comment on above: Performed By: #### L 300.3900, L100.0100 ####[facility] [address] [place], [address] Neutrophils/100 WBC (Bld) 57.4 % Normal 47-70 [facility] Comment on above: Performed By: #### L 300.3900, L100.0100 ####[facility] [address] [place], [address] Nucleated RBC (Bld) [#/Vol] 0 10*3/uL Normal 0-5 [facility] Comment on above: Performed By: #### L 300.3900, L100.0100 ####[facility] [address] [place], [address] Platelet mean volume (Bld) [Entitic vol] 9.2 fL Normal 6.2-12.0 [facility] Comment on above: Performed By: #### L 300.3900, L100.0100 ####[facility] [address] [place], [address] Platelets (Bld) [#/Vol] 316 10*3/uL Normal 150-450 [facility] Comment on above: Performed By: #### L 300.3900, L100.0100 ####[facility] [address] [place], [address] RBC (Bld) [#/Vol] 4.24 10*6/uL Low 4.6-6.2 [facility] Comment on above: Performed By: #### L 300.3900, L100.0100 ####[facility] [address] [place], [address] RDW SD 56.3 fl High 35.1-43.9 [facility] Comment on above: Performed By: #### L 300.3900, L100.0100 ####[facility] [address] [place], [address] WBC (Bld) [#/Vol] 6.0 10*3/uL Normal 4.4-11.0 [facility] Comment on above: Performed By: #### L 300.3900, L100.0100 ####[facility] [address] [place], [address] International normalized rat io (INR) calculationOrdered By: Sunny Mancia on 07-04-2024 INR Coag (Bld) [Relative time] 1.0 {INR} [facility] NATERAon 07-04-2024 NATURA SEE SCANNED REPORT Normal [facility] Comment on above: Performed By: #### L 900.0098 ####[facility] [address] [place], [address] Oncology Visit Reporton Oncology Visit Report Normal [facility] Prothrombin Time w/INRon INR Coag (PPP) [Relative time] 1.0 {INR} Normal [facility] Comment on above: Performed By: #### L 300.3900, L100.0100 ####[facility] [address] [place], [address] PT Coag (PPP) [Time] 12.8 s Normal 11.7-14.9 [facility] Comment on above: Performed By: #### L 300.3900, L100.0100 ####[facility] [address] [place], [address] Prothrombin timeOrdered By: Sunny Mancia on 07-04-2024 PT Coag (PPP) [Time] 12.8 s 11.7-14.9 [facility] Bronchoscopy Reporton 2023 Bronchoscopy Report Normal [facility] CK7 (initial)on 06-22-2024 CK7 (initial) Normal [facility] Comment on above: Performed By: #### P CK7 ####[facility] [address] [place], [address] EGD Reporton 06-22-2024 EGD Report Normal [facility] H Pylori (initial)on 024 H Pylori (initial) Normal [facility] Comment on above: Performed By: #### P H.PYLORI ####[facility] [address] [place], [address] MR/POSTOP.ANEon 06-22-2024 MR/POSTOP.ANE Normal [facility] MR/BQSESSGQ8eb 06-22-2024 MR/POSTOPAN2 Normal [facility] Special Stain Group Ion 06-02 Special Stain Group I Normal [facility] Comment on above: Performed By: #### P SSI ####[facility] [address] [place], [address] Surgery Specimen Level Oscar 06-22-2024 Surgery Specimen Level IV Normal [facility] Comment on above: Performed By: #### P SUIV ####[facility] [address] [place], [address] CBC W/Diff, Automatedon 06-01 Absolute Lymph 1.50 X10 3/uL Normal 0.83-4.51 [facility] Comment on above: Order Comment: Comme nts: Post-operatively Performed By: #### L 100.0100 ####[facility] [address] [place], [address] Absolute Neut 5.3 X10 3/uL Normal 2.0-7.7 [facility] Comment on above: Order Comment: Comme nts: Post-operatively Performed By: #### L 100.0100 ####[facility] [address] [place], [address] Basophils/100 WBC (Bld) 0.3 % Normal 0-1 [facility] Comment on above: Order Comment: Comme nts: Post-operatively Performed By: #### L 100.0100 ####[facility] [address] [place], [address] Eosinophils/100 WBC (Bld) 1.8 % Normal 0-5 [facility] Comment on above: Order Comment: Comme nts: Post-operatively Performed By: #### L 100.0100 ####[facility] [address] [place], [address] Erythrocyte distribution width (RBC) [Ratio] 18.0 % High 11.6-14.6 [facility] Comment on above: Order Comment: Comme nts: Post-operatively Performed By: #### L 100.0100 ####[facility] [address] [place], [address] Hematocrit (Bld) [Volume fraction] 36.1 % Low 40-54 [facility] Comment on above: Order Comment: Comme nts: Post-operatively Performed By: #### L 100.0100 ####[facility] [address] [place], [address] Hemoglobin (Bld) [Mass/Vol] 11.3 g/dL Low 13.0-16.5 [facility] Comment on above: Order Comment: Comme nts: Post-operatively Performed By: #### L 100.0100 ####[facility] [address] [place], [address] IG% 0.400 Normal 0.0-0.9 [facility] Comment on above: Order Comment: Comme nts: Post-operatively Result Comment: IG% - Immature Granulocytes (promyelocytes, myelocytes andmetamyelocytes) > 1% indicates that a LEFT SHIFT is Present. Performed By: #### L 100.0100 ####[facility] [address] [place], [address] Lymphocytes/100 WBC (Bld) 19.5 % Normal 19-41 [facility] Comment on above: Order Comment: Comme nts: Post-operatively Performed By: #### L 100.0100 ####[facility] [address] [place], [address] MCH (RBC) [Entitic mass] 27.0 pg Normal 27.0-32.0 [facility] Comment on above: Order Comment: Comme nts: Post-operatively Performed By: #### L 100.0100 ####[facility] [address] [place], [address] MCHC (RBC) [Mass/Vol] 31.3 g/dL Low 32-36 [facility] Comment on above: Order Comment: Comme nts: Post-operatively Performed By: #### L 100.0100 ####[facility] [address] [place], [address] MCV (RBC) [Entitic vol] 86.4 fL Normal 80-94 [facility] Comment on above: Order Comment: Comme nts: Post-operatively Performed By: #### L 100.0100 ####[facility] [address] [place], [address] Monocytes/100 WBC (Bld) 9.2 % Normal 0-10 [facility] Comment on above: Order Comment: Comme nts: Post-operatively Performed By: #### L 100.0100 ####[facility] [address] [place], [address] Neutrophils/100 WBC (Bld) 68.8 % Normal 47-70 [facility] Comment on above: Order Comment: Comme nts: Post-operatively Performed By: #### L 100.0100 ####[facility] [address] [place], [address] Nucleated RBC (Bld) [#/Vol] 0 10*3/uL Normal 0-5 [facility] Comment on above: Order Comment: Comme nts: Post-operatively Performed By: #### L 100.0100 ####[facility] [address] [place], [address] Platelet mean volume (Bld) [Entitic vol] 9.3 fL Normal 6.2-12.0 [facility] Comment on above: Order Comment: Comme nts: Post-operatively Performed By: #### L 100.0100 ####[facility] [address] [place], [address] Platelets (Bld) [#/Vol] 294 10*3/uL Normal 150-450 [facility] Comment on above: Order Comment: Comme nts: Post-operatively Performed By: #### L 100.0100 ####[facility] [address] [place], [address] RBC (Bld) [#/Vol] 4.18 10*6/uL Low 4.6-6.2 [facility] Comment on above: Order Comment: Comme nts: Post-operatively Performed By: #### L 100.0100 ####[facility] [address] [place], [address] RDW SD 57.7 fl High 35.1-43.9 [facility] Comment on above: Order Comment: Comme nts: Post-operatively Performed By: #### L 100.0100 ####[facility] [address] [place], [address] WBC (Bld) [#/Vol] 7.7 10*3/uL Normal 4.4-11.0 [facility] Comment on above: Order Comment: Comme nts: Post-operatively Performed By: #### L 100.0100 ####[facility] [address] [place], [address] Pulmonary Visit Reporton Pulmonary Visit Report Normal [facility] Basic Metabolic Profile (BMP )on 06-10-2024 BUN/CRE 17.0 RATIO Normal 10-20 [facility] Comment on above: Performed By: #### L 500.2500, L100.0100 ####[facility] [address] [place], [address] CA,Total 8.7 mg/dL Normal 8.5-10.1 [facility] Comment on above: Performed By: #### L 500.2500, L100.0100 ####[facility] [address] [place], [address] Chloride [Moles/Vol] 108 mmol/L High 98-107 [facility] Comment on above: Performed By: #### L 500.2500, L100.0100 ####[facility] [address] [place], [address] CO2 [Moles/Vol] 26.0 mmol/L Normal 21.0-32.0 [facility] Comment on above: Performed By: #### L 500.2500, L100.0100 ####[facility] [address] [place], [address] Creatinine [Mass/Vol] 1.12 mg/dL Normal 0.70-1.30 [facility] Comment on above: Result Comment: The validity of the calculated GFR GFRAA in patients over70 years has not been determined. Clinical correlation isessential. Performed By: #### L 500.2500, L100.0100 ####[facility] [address] [place], [address] ECRCL 49.18 ml/min Normal [facility] Comment on above: Performed By: #### L 500.2500, L100.0100 ####[facility] [address] [place], [address] EST GFR - AA 81 mL/min Normal >60 [facility] Comment on above: Result Comment: Afri can Ethiopian GFR Calc Performed By: #### L 500.2500, L100.0100 ####[facility] [address] [place], [address] GAP 4 Low 5-15 [facility] Comment on above: Performed By: #### L 500.2500, L100.0100 ####[facility] [address] [place], [address] GFR/1.73 sq M.predicted among non-blacks MDRD (S/P/Bld) [Vol rate/Area] 67 mL/min/{1.73_m2} Normal >60 [facility] Comment on above: Result Comment: Non- GFR Calc Performed By: #### L 500.2500, L100.0100 ####[facility] [address] [place], [address] Glucose [Mass/Vol] 100 mg/dL Normal 74-106 [facility] Comment on above: Result Comment: Fast ing Glucose result from 100 to 125 mg/dLsuggests IMPAIRED HOMEOSTASIS per A.D.A. criteria. Performed By: #### L 500.2500, L100.0100 ####[facility] [address] [place], [address] Potassium [Moles/Vol] 4.2 mmol/L Normal 3.5-5.1 [facility] Comment on above: Performed By: #### L 500.2500, L100.0100 ####[facility] [address] [place], [address] Sodium [Moles/Vol] 138 mmol/L Normal 136-145 [facility] Comment on above: Performed By: #### L 500.2500, L100.0100 ####[facility] [address] [place], [address] Urea nitrogen [Mass/Vol] 19 mg/dL High 7-18 [facility] Comment on above: Performed By: #### L 500.2500, L100.0100 ####[facility] [address] [place], [address] CBC W/Diff, Automatedon 11- 0-4 Absolute Lymph 1.57 X10 3/uL Normal 0.83-4.51 [facility] Comment on above: Performed By: #### L 500.2500, L100.0100 ####[facility] [address] [place], [address] Absolute Neut 3.5 X10 3/uL Normal 2.0-7.7 [facility] Comment on above: Performed By: #### L 500.2500, L100.0100 ####[facility] [address] [place], [address] Basophils/100 WBC (Bld) 0.2 % Normal 0-1 [facility] Comment on above: Performed By: #### L 500.2500, L100.0100 ####[facility] [address] [place], [address] Eosinophils/100 WBC (Bld) 3.9 % Normal 0-5 [facility] Comment on above: Performed By: #### L 500.2500, L100.0100 ####[facility] [address] [place], [address] Erythrocyte distribution width (RBC) [Ratio] 18.6 % High 11.6-14.6 [facility] Comment on above: Performed By: #### L 500.2500, L100.0100 ####[facility] [address] [place], [address] Hematocrit (Bld) [Volume fraction] 32.1 % Low 40-54 [facility] Comment on above: Performed By: #### L 500.2500, L100.0100 ####[facility] [address] [place], [address] Hemoglobin (Bld) [Mass/Vol] 10.2 g/dL Low 13.0-16.5 [facility] Comment on above: Performed By: #### L 500.2500, L100.0100 ####[facility] [address] [place], [address] IG% 0.300 Normal 0.0-0.9 [facility] Comment on above: Result Comment: IG% - Immature Granulocytes (promyelocytes, myelocytes andmetamyelocytes) > 1% indicates that a LEFT SHIFT is Present. Performed By: #### L 500.2500, L100.0100 ####[facility] [address] [place], [address] Lymphocytes/100 WBC (Bld) 25.7 % Normal 19-41 [facility] Comment on above: Performed By: #### L 500.2500, L100.0100 ####[facility] [address] [place], [address] MCH (RBC) [Entitic mass] 27.1 pg Normal 27.0-32.0 [facility] Comment on above: Performed By: #### L 500.2500, L100.0100 ####[facility] [address] [place], [address] MCHC (RBC) [Mass/Vol] 31.8 g/dL Low 32-36 [facility] Comment on above: Performed By: #### L 500.2500, L100.0100 ####[facility] [address] [place], [address] MCV (RBC) [Entitic vol] 85.4 fL Normal 80-94 [facility] Comment on above: Performed By: #### L 500.2500, L100.0100 ####[facility] [address] [place], [address] Monocytes/100 WBC (Bld) 12.4 % High 0-10 [facility] Comment on above: Performed By: #### L 500.2500, L100.0100 ####[facility] [address] [place], [address] Neutrophils/100 WBC (Bld) 57.5 % Normal 47-70 [facility] Comment on above: Performed By: #### L 500.2500, L100.0100 ####[facility] [address] [place], [address] Nucleated RBC (Bld) [#/Vol] 0 10*3/uL Normal 0-5 [facility] Comment on above: Performed By: #### L 500.2500, L100.0100 ####[facility] [address] [place], [address] Platelet mean volume (Bld) [Entitic vol] 9.6 fL Normal 6.2-12.0 [facility] Comment on above: Performed By: #### L 500.2500, L100.0100 ####[facility] [address] [place], [address] Platelets (Bld) [#/Vol] 275 10*3/uL Normal 150-450 [facility] Comment on above: Performed By: #### L 500.2500, L100.0100 ####[facility] [address] [place], [address] RBC (Bld) [#/Vol] 3.76 10*6/uL Low 4.6-6.2 [facility] Comment on above: Performed By: #### L 500.2500, L100.0100 ####[facility] [address] [place], [address] RDW SD 58.0 fl High 35.1-43.9 [facility] Comment on above: Performed By: #### L 500.2500, L100.0100 ####[facility] [address] [place], [address] WBC (Bld) [#/Vol] 6.1 10*3/uL Normal 4.4-11.0 [facility] Comment on above: Performed By: #### L 500.2500, L100.0100 ####[facility] [address] [place], [address] Discharge Instructionon 06-01 Discharge Instruction Normal [facility] BRCon 06-09-2024 RC Normal Neg [facility] Comment on above: Result Comment: [id number] OP RC TRANSFUSED 06/09/24 1143 Performed By: #### B , [facility] ####[facility] [address] [place], [address] CBC W/Diff, Automatedon 11- Absolute Lymph 1.40 X10 3/uL Normal 0.83-4.51 [facility] Comment on above: Performed By: #### L 100.0100, L500.4050, L501.5200 ####[facility] [address] [place], [address] Absolute Neut 4.2 X10 3/uL Normal 2.0-7.7 [facility] Comment on above: Performed By: #### L 100.0100, L500.4050, L501.5200 ####[facility] [address] [place], [address] Basophils/100 WBC (Bld) 0.3 % Normal 0-1 [facility] Comment on above: Performed By: #### L 100.0100, L500.4050, L501.5200 ####[facility] [address] [place], [address] Eosinophils/100 WBC (Bld) 3.2 % Normal 0-5 [facility] Comment on above: Performed By: #### L 100.0100, L500.4050, L501.5200 ####[facility] [address] [place], [address] Erythrocyte distribution width (RBC) [Ratio] 19.2 % High 11.6-14.6 [facility] Comment on above: Performed By: #### L 100.0100, L500.4050, L501.5200 ####[facility] [address] [place], [address] Hematocrit (Bld) [Volume fraction] 26.4 % Low 40-54 [facility] Comment on above: Performed By: #### L 100.0100, L500.4050, L501.5200 ####[facility] [address] [place], [address] Hemoglobin (Bld) [Mass/Vol] 8.2 g/dL Low 13.0-16.5 [facility] Comment on above: Performed By: #### L 100.0100, L500.4050, L501.5200 ####[facility] [address] [place], [address] IG% 0.300 Normal 0.0-0.9 [facility] Comment on above: Result Comment: IG% - Immature Granulocytes (promyelocytes, myelocytes andmetamyelocytes) > 1% indicates that a LEFT SHIFT is Present. Performed By: #### L 100.0100, L500.4050, L501.5200 ####[facility] [address] [place], [address] Lymphocytes/100 WBC (Bld) 21.6 % Normal 19-41 [facility] Comment on above: Performed By: #### L 100.0100, L500.4050, L501.5200 ####[facility] [address] [place], [address] MCH (RBC) [Entitic mass] 26.8 pg Low 27.0-32.0 [facility] Comment on above: Performed By: #### L 100.0100, L500.4050, L501.5200 ####[facility] [address] [place], [address] MCHC (RBC) [Mass/Vol] 31.1 g/dL Low 32-36 [facility] Comment on above: Performed By: #### L 100.0100, L500.4050, L501.5200 ####[facility] [address] [place], [address] MCV (RBC) [Entitic vol] 86.3 fL Normal 80-94 [facility] Comment on above: Performed By: #### L 100.0100, L500.4050, L501.5200 ####[facility] [address] [place], [address] Monocytes/100 WBC (Bld) 10.2 % High 0-10 [facility] Comment on above: Performed By: #### L 100.0100, L500.4050, L501.5200 ####[facility] [address] [place], [address] Neutrophils/100 WBC (Bld) 64.4 % Normal 47-70 [facility] Comment on above: Performed By: #### L 100.0100, L500.4050, L501.5200 ####[facility] [address] [place], [address] Nucleated RBC (Bld) [#/Vol] 0 10*3/uL Normal 0-5 [facility] Comment on above: Performed By: #### L 100.0100, L500.4050, L501.5200 ####[facility] [address] [place], [address] Platelet mean volume (Bld) [Entitic vol] 9.8 fL Normal 6.2-12.0 [facility] Comment on above: Performed By: #### L 100.0100, L500.4050, L501.5200 ####[facility] [address] [place], [address] Platelets (Bld) [#/Vol] 262 10*3/uL Normal 150-450 [facility] Comment on above: Performed By: #### L 100.0100, L500.4050, L501.5200 ####[facility] [address] [place], [address] RBC (Bld) [#/Vol] 3.06 10*6/uL Low 4.6-6.2 [facility] Comment on above: Performed By: #### L 100.0100, L500.4050, L501.5200 ####[facility] [address] [place], [address] RDW SD 59.4 fl High 35.1-43.9 [facility] Comment on above: Performed By: #### L 100.0100, L500.4050, L501.5200 ####[facility] [address] [place], [address] WBC (Bld) [#/Vol] 6.5 10*3/uL Normal 4.4-11.0 [facility] Comment on above: Performed By: #### L 100.0100, L500.4050, L501.5200 ####[facility] [address] [place], [address] Comprehensive Metabolic [facility] 06-09-2024 Albumin [Mass/Vol] 2.9 g/dL Low 3.2-5.0 [facility] Comment on above: Performed By: #### L 100.0100, L500.4050, L501.5200 ####[facility] [address] [place], [address] Albumin/Globulin [Mass ratio] 1.1 {ratio} Normal 0.9-2.4 [facility] Comment on above: Performed By: #### L 100.0100, L500.4050, L501.5200 ####[facility] [address] [place], [address] ALK P 76 U/L Normal 45-117 [facility] Comment on above: Performed By: #### L 100.0100, L500.4050, L501.5200 ####[facility] [address] [place], [address] ALT [Catalytic activity/Vol] 12 U/L Low 16-61 [facility] Comment on above: Performed By: #### L 100.0100, L500.4050, L501.5200 ####[facility] [address] [place], [address] AST [Catalytic activity/Vol] 14 U/L Low 15-37 [facility] Comment on above: Performed By: #### L 100.0100, L500.4050, L501.5200 ####[facility] [address] [place], [address] Bilirubin [Mass/Vol] 0.60 mg/dL Normal 0.20-1.00 [facility] Comment on above: Result Comment: For patients on eltrombopag therapy, use of Dimension [place] TBIL is not recommended. Performed By: #### L 100.0100, L500.4050, L501.5200 ####[facility] [address] [place], [address] BUN/CRE 19.6 RATIO Normal 10-20 [facility] Comment on above: Performed By: #### L 100.0100, L500.4050, L501.5200 ####[facility] [address] [place], [address] CA,Total 7.9 mg/dL Low 8.5-10.1 [facility] Comment on above: Performed By: #### L 100.0100, L500.4050, L501.5200 ####[facility] [address] [place], [address] Chloride [Moles/Vol] 105 mmol/L Normal 98-107 [facility] Comment on above: Performed By: #### L 100.0100, L500.4050, L501.5200 ####[facility] [address] [place], [address] CO2 [Moles/Vol] 24.0 mmol/L Normal 21.0-32.0 [facility] Comment on above: Performed By: #### L 100.0100, L500.4050, L501.5200 ####[facility] [address] [place], [address] Creatinine [Mass/Vol] 1.12 mg/dL Normal 0.70-1.30 [facility] Comment on above: Result Comment: The validity of the calculated GFR GFRAA in patients over70 years has not been determined. Clinical correlation isessential. Performed By: #### L 100.0100, L500.4050, L501.5200 ####[facility] [address] [place], [address] ECRCL 49.18 ml/min Normal [facility] Comment on above: Performed By: #### L 100.0100, L500.4050, L501.5200 ####[facility] [address] [place], [address] EST GFR - AA 81 mL/min Normal >60 [facility] Comment on above: Result Comment: Afri can Ethiopian GFR Calc Performed By: #### L 100.0100, L500.4050, L501.5200 ####[facility] [address] [place], [address] GAP 5 Normal 5-15 [facility] Comment on above: Performed By: #### L 100.0100, L500.4050, L501.5200 ####[facility] [address] [place], [address] GFR/1.73 sq M.predicted among non-blacks MDRD (S/P/Bld) [Vol rate/Area] 67 mL/min/{1.73_m2} Normal >60 [facility] Comment on above: Result Comment: Non- GFR Calc Performed By: #### L 100.0100, L500.4050, L501.5200 ####[facility] [address] [place], [address] Globulin (S) [Mass/Vol] 2.6 g/dL Normal 2.2-4.2 [facility] Comment on above: Performed By: #### L 100.0100, L500.4050, L501.5200 ####[facility] [address] [place], [address] Glucose [Mass/Vol] 103 mg/dL Normal 74-106 [facility] Comment on above: Result Comment: Fast ing Glucose result from 100 to 125 mg/dLsuggests IMPAIRED HOMEOSTASIS per A.D.A. criteria. Performed By: #### L 100.0100, L500.4050, L501.5200 ####[facility] [address] [place], [address] Potassium [Moles/Vol] 3.9 mmol/L Normal 3.5-5.1 [facility] Comment on above: Performed By: #### L 100.0100, L500.4050, L501.5200 ####[facility] [address] [place], [address] Sodium [Moles/Vol] 135 mmol/L Low 136-145 [facility] Comment on above: Performed By: #### L 100.0100, L500.4050, L501.5200 ####[facility] [address] [place], [address] T PROT 5.5 g/dL Low 6.4-8.2 [facility] Comment on above: Performed By: #### L 100.0100, L500.4050, L501.5200 ####[facility] [address] [place], [address] Urea nitrogen [Mass/Vol] 22 mg/dL High 7-18 [facility] Comment on above: Performed By: #### L 100.0100, L500.4050, L501.5200 ####[facility] [address] [place], [address] HH, Hemoglobin AND Hematocri ton 06-09-2024 Hematocrit (Bld) [Volume fraction] 27.8 % Low 40-54 [facility] Comment on above: Performed By: #### L 100.0600 ####[facility] [address] [place], [address] Hemoglobin (Bld) [Mass/Vol] 9.0 g/dL Low 13.0-16.5 [facility] Comment on above: Performed By: #### L 100.0600 ####[facility] [address] [place], [address] L501.4020on 06-09-2024 TROPONIN-I HS 88 pg/mL High 3.0-78.0 [facility] Comment on above: Order Comment: 'TROP ' Serial specimen #1, #2 or #3: 3 Result Comment: Debi vieyra Note: New Test Units and Gender Specific Reference Ranges. For more information see Policy Stat Procedure [place] High Sensitivity Troponin (TNIH) and attachments. Performed By: #### L 501.4020 ####[facility] [address] [place], [address] Magnesiumon 06-09-2024 Magnesium [Mass/Vol] 1.8 mg/dL Normal 1.6-2.6 [facility] Comment on above: Performed By: #### L 100.0100, L500.4050, L501.5200 ####[facility] [address] [place], [place], [id number] Type AND Screenon 06-09-2024 Ab SCREEN GEL Negative Normal [facility] Comment on above: Order Comment: CMV N EG? NNumber of units to transfuse: 1Reason for Ordering Blood: AcuteAre the blood/blood products to be transfused? YIs the patient having/had surgery? Claudine Goodman Performed By: #### Marco KANG, [facility] ####[facility] [address] [place], [place], [id number] ABO and Rh group Nom (Bld) Blood group O Rh(D) positive Normal [facility] Comment on above: Order Comment: CMV N EG? NNumber of units to transfuse: 1Reason for Ordering Blood: AcuteAre the blood/blood products to be transfused? YIs the patient having/had surgery? Claudine Goodman Performed By: #### Marco KANG, [facility] ####[facility] [address] [place], [place], [id number] 12 Lead EKGon 06-08-2024 12 Lead EKG Normal [facility] BNP,B-Type NATRIURETIC PEPTI Иван 06-08-2024 Natriuretic peptide B (Bld) [Mass/Vol] 109.8 pg/mL High 0-100 [facility] Comment on above: Performed By: #### L 503.6620, L300.3900, L100.0100, L501.5425, L500.2500 ####[facility] [address] [place], [place], [id number] Basic Metabolic Profile (BMP )on 06-08-2024 BUN/CRE 18.2 RATIO Normal 10-20 [facility] Comment on above: Order Comment: 1Y Performed By: #### L 503.6620, L300.3900, L100.0100, L501.5425, L500.2500 ####[facility] [address] [place], [place], [id number] CA,Total 9.4 mg/dL Normal 8.5-10.1 [facility] Comment on above: Order Comment: 1Y Performed By: #### L 503.6620, L300.3900, L100.0100, L501.5425, L500.2500 ####[facility] [address] [place], [address] Chloride [Moles/Vol] 105 mmol/L Normal 98-107 [facility] Comment on above: Order Comment: 1Y Performed By: #### L 503.6620, L300.3900, L100.0100, L501.5425, L500.2500 ####[facility] [address] [place], [address] CO2 [Moles/Vol] 23.0 mmol/L Normal 21.0-32.0 [facility] Comment on above: Order Comment: 1Y Performed By: #### L 503.6620, L300.3900, L100.0100, L501.5425, L500.2500 ####[facility] [address] [place], [address] Creatinine [Mass/Vol] 1.21 mg/dL Normal 0.70-1.30 [facility] Comment on above: Order Comment: 1Y Result Comment: The validity of the calculated GFR GFRAA in patients over70 years has not been determined. Clinical correlation isessential. Performed By: #### L 503.6620, L300.3900, L100.0100, L501.5425, L500.2500 ####[facility] [address] [place], [address] ECRCL 45.52 ml/min Normal [facility] Comment on above: Order Comment: 1Y Performed By: #### L 503.6620, L300.3900, L100.0100, L501.5425, L500.2500 ####[facility] [address] [place], [address] EST GFR - AA 74 mL/min Normal >60 [facility] Comment on above: Order Comment: 1Y Result Comment: Afri can Ethiopian GFR Calc Performed By: #### L 503.6620, L300.3900, L100.0100, L501.5425, L500.2500 ####[facility] [address] [place], [address] GAP 8 Normal 5-15 [facility] Comment on above: Order Comment: 1Y Performed By: #### L 503.6620, L300.3900, L100.0100, L501.5425, L500.2500 ####[facility] [address] [place], [address] GFR/1.73 sq M.predicted among non-blacks MDRD (S/P/Bld) [Vol rate/Area] 61 mL/min/{1.73_m2} Normal >60 [facility] Comment on above: Order Comment: 1Y Result Comment: Non- GFR Calc Performed By: #### L 503.6620, L300.3900, L100.0100, L501.5425, L500.2500 ####[facility] [address] [place], [address] Glucose [Mass/Vol] 127 mg/dL High 74-106 [facility] Comment on above: Order Comment: 1Y Result Comment: Fast ing Glucose result greater than or equal to 126 mg/dLsuggests DIABETES MELLITUS per A.D.A. criteria. Performed By: #### L 503.6620, L300.3900, L100.0100, L501.5425, L500.2500 ####[facility] [address] [place], [address] Potassium [Moles/Vol] 3.8 mmol/L Normal 3.5-5.1 [facility] Comment on above: Order Comment: 1Y Performed By: #### L 503.6620, L300.3900, L100.0100, L501.5425, L500.2500 ####[facility] [address] [place], [address] Sodium [Moles/Vol] 136 mmol/L Normal 136-145 [facility] Comment on above: Order Comment: 1Y Performed By: #### L 503.6620, L300.3900, L100.0100, L501.5425, L500.2500 ####[facility] [address] [place], [address] Urea nitrogen [Mass/Vol] 22 mg/dL High 7-18 [facility] Comment on above: Order Comment: 1Y Performed By: #### L 503.6620, L300.3900, L100.0100, L501.5425, L500.2500 ####[facility] [address] [place], [address] Biopsy/Inj or Needle Placeme nton 06-08-2023 Biopsy/Inj or Needle Placement Normal [facility] CBC W/Diff, Automatedon 11-0 -2023 Absolute Lymph 0.97 X10 3/uL Normal 0.83-4.51 [facility] Comment on above: Performed By: #### L 100.0100 ####[facility] [address] [place], [address] Absolute Neut 5.5 X10 3/uL Normal 2.0-7.7 [facility] Comment on above: Performed By: #### L 100.0100 ####[facility] [address] [place], [address] Basophils/100 WBC (Bld) 0.1 % Normal 0-1 [facility] Comment on above: Performed By: #### L 100.0100 ####[facility] [address] [place], [address] Eosinophils/100 WBC (Bld) 1.3 % Normal 0-5 [facility] Comment on above: Performed By: #### L 100.0100 ####[facility] [address] [place], [address] Erythrocyte distribution width (RBC) [Ratio] 18.9 % High 11.6-14.6 [facility] Comment on above: Performed By: #### L 100.0100 ####[facility] [address] [place], [address] Hematocrit (Bld) [Volume fraction] 27.6 % Low 40-54 [facility] Comment on above: Performed By: #### L 100.0100 ####[facility] [address] [place], [address] Hemoglobin (Bld) [Mass/Vol] 8.7 g/dL Low 13.0-16.5 [facility] Comment on above: Performed By: #### L 100.0100 ####[facility] [address] [place], [address] IG% 0.400 Normal 0.0-0.9 [facility] Comment on above: Result Comment: IG% - Immature Granulocytes (promyelocytes, myelocytes andmetamyelocytes) > 1% indicates that a LEFT SHIFT is Present. Performed By: #### L 100.0100 ####[facility] [address] [place], [address] Lymphocytes/100 WBC (Bld) 13.5 % Low 19-41 [facility] Comment on above: Performed By: #### L 100.0100 ####[facility] [address] [place], [address] MCH (RBC) [Entitic mass] 27.2 pg Normal 27.0-32.0 [facility] Comment on above: Performed By: #### L 100.0100 ####[facility] [address] [place], [address] MCHC (RBC) [Mass/Vol] 31.5 g/dL Low 32-36 [facility] Comment on above: Performed By: #### L 100.0100 ####[facility] [address] [place], [address] MCV (RBC) [Entitic vol] 86.3 fL Normal 80-94 [facility] Comment on above: Performed By: #### L 100.0100 ####[facility] [address] [place], [address] Monocytes/100 WBC (Bld) 8.1 % Normal 0-10 [facility] Comment on above: Performed By: #### L 100.0100 ####[facility] [address] [place], [address] Neutrophils/100 WBC (Bld) 76.6 % High 47-70 [facility] Comment on above: Performed By: #### L 100.0100 ####[facility] [address] [place], [address] Nucleated RBC (Bld) [#/Vol] 0 10*3/uL Normal 0-5 [facility] Comment on above: Performed By: #### L 100.0100 ####[facility] [address] [place], [address] Platelet mean volume (Bld) [Entitic vol] 9.1 fL Normal 6.2-12.0 [facility] Comment on above: Performed By: #### L 100.0100 ####[facility] [address] [place], [address] Platelets (Bld) [#/Vol] 265 10*3/uL Normal 150-450 [facility] Comment on above: Performed By: #### L 100.0100 ####[facility] [address] [place], [address] RBC (Bld) [#/Vol] 3.20 10*6/uL Low 4.6-6.2 [facility] Comment on above: Performed By: #### L 100.0100 ####[facility] [address] [place], [address] RDW SD 58.9 fl High 35.1-43.9 [facility] Comment on above: Performed By: #### L 100.0100 ####[facility] [address] [place], [address] WBC (Bld) [#/Vol] 7.2 10*3/uL Normal 4.4-11.0 [facility] Comment on above: Performed By: #### L 100.0100 ####[facility] [address] [place], [address] Absolute Lymph 1.94 X10 3/uL Normal 0.83-4.51 [facility] Comment on above: Performed By: #### L 503.6620, L300.3900, L100.0100, L501.5425, L500.2500 ####[facility] [address] [place], [address] Absolute Neut 10.2 X10 3/uL High 2.0-7.7 [facility] Comment on above: Performed By: #### L 503.6620, L300.3900, L100.0100, L501.5425, L500.2500 ####[facility] [address] [place], [address] Basophils/100 WBC (Bld) 0.2 % Normal 0-1 [facility] Comment on above: Performed By: #### L 503.6620, L300.3900, L100.0100, L501.5425, L500.2500 ####[facility] [address] [place], [address] Eosinophils/100 WBC (Bld) 1.6 % Normal 0-5 [facility] Comment on above: Performed By: #### L 503.6620, L300.3900, L100.0100, L501.5425, L500.2500 ####[facility] [address] [place], [address] Erythrocyte distribution width (RBC) [Ratio] 18.9 % High 11.6-14.6 [facility] Comment on above: Performed By: #### L 503.6620, L300.3900, L100.0100, L501.5425, L500.2500 ####[facility] [address] [place], [address] Hematocrit (Bld) [Volume fraction] 35.8 % Low 40-54 [facility] Comment on above: Performed By: #### L 503.6620, L300.3900, L100.0100, L501.5425, L500.2500 ####[facility] [address] [place], [address] Hemoglobin (Bld) [Mass/Vol] 11.1 g/dL Low 13.0-16.5 [facility] Comment on above: Performed By: #### L 503.6620, L300.3900, L100.0100, L501.5425, L500.2500 ####[facility] [address] [place], [address] IG% 0.600 Normal 0.0-0.9 [facility] Comment on above: Result Comment: IG% - Immature Granulocytes (promyelocytes, myelocytes andmetamyelocytes) > 1% indicates that a LEFT SHIFT is Present. Performed By: #### L 503.6620, L300.3900, L100.0100, L501.5425, L500.2500 ####[facility] [address] [place], [address] Lymphocytes/100 WBC (Bld) 14.5 % Low 19-41 [facility] Comment on above: Performed By: #### L 503.6620, L300.3900, L100.0100, L501.5425, L500.2500 ####[facility] [address] [place], [address] MCH (RBC) [Entitic mass] 26.5 pg Low 27.0-32.0 [facility] Comment on above: Performed By: #### L 503.6620, L300.3900, L100.0100, L501.5425, L500.2500 ####[facility] [address] [place], [address] MCHC (RBC) [Mass/Vol] 31.0 g/dL Low 32-36 [facility] Comment on above: Performed By: #### L 503.6620, L300.3900, L100.0100, L501.5425, L500.2500 ####[facility] [address] [place], [address] MCV (RBC) [Entitic vol] 85.4 fL Normal 80-94 [facility] Comment on above: Performed By: #### L 503.6620, L300.3900, L100.0100, L501.5425, L500.2500 ####[facility] [address] [place], [address] Monocytes/100 WBC (Bld) 6.7 % Normal 0-10 [facility] Comment on above: Performed By: #### L 503.6620, L300.3900, L100.0100, L501.5425, L500.2500 ####[facility] [address] [place], [address] Neutrophils/100 WBC (Bld) 76.4 % High 47-70 [facility] Comment on above: Performed By: #### L 503.6620, L300.3900, L100.0100, L501.5425, L500.2500 ####[facility] [address] [place], [address] Nucleated RBC (Bld) [#/Vol] 0 10*3/uL Normal 0-5 [facility] Comment on above: Performed By: #### L 503.6620, L300.3900, L100.0100, L501.5425, L500.2500 ####[facility] [address] [place], [address] Platelet mean volume (Bld) [Entitic vol] 9.8 fL Normal 6.2-12.0 [facility] Comment on above: Performed By: #### L 503.6620, L300.3900, L100.0100, L501.5425, L500.2500 ####[facility] [address] [place], [address] Platelets (Bld) [#/Vol] 372 10*3/uL Normal 150-450 [facility] Comment on above: Performed By: #### L 503.6620, L300.3900, L100.0100, L501.5425, L500.2500 ####[facility] [address] [place], [address] RBC (Bld) [#/Vol] 4.19 10*6/uL Low 4.6-6.2 [facility] Comment on above: Performed By: #### L 503.6620, L300.3900, L100.0100, L501.5425, L500.2500 ####[facility] [address] [place], [address] RDW SD 57.8 fl High 35.1-43.9 [facility] Comment on above: Performed By: #### L 503.6620, L300.3900, L100.0100, L501.5425, L500.2500 ####[facility] [address] [place], [address] WBC (Bld) [#/Vol] 13.4 10*3/uL High 4.4-11.0 [facility] Comment on above: Performed By: #### L 503.6620, L300.3900, L100.0100, L501.5425, L500.2500 ####[facility] [address] [place], [address] Absolute Lymph 1.50 X10 3/uL Normal 0.83-4.51 [facility] Comment on above: Performed By: #### L 300.4310, L100.0100, L300.3900 ####[facility] [address] [place], [address] Absolute Neut 4.2 X10 3/uL Normal 2.0-7.7 [facility] Comment on above: Performed By: #### L 300.4310, L100.0100, L300.3900 ####[facility] [address] [place], [address] Basophils/100 WBC (Bld) 0.4 % Normal 0-1 [facility] Comment on above: Performed By: #### L 300.4310, L100.0100, L300.3900 ####[facility] [address] [place], [address] Eosinophils/100 WBC (Bld) 4.9 % Normal 0-5 [facility] Comment on above: Performed By: #### L 300.4310, L100.0100, L300.3900 ####[facility] [address] [place], [address] Erythrocyte distribution width (RBC) [Ratio] 18.9 % High 11.6-14.6 [facility] Comment on above: Performed By: #### L 300.4310, L100.0100, L300.3900 ####[facility] [address] [place], [address] Hematocrit (Bld) [Volume fraction] 36.2 % Low 40-54 [facility] Comment on above: Performed By: #### L 300.4310, L100.0100, L300.3900 ####[facility] [address] [place], [address] Hemoglobin (Bld) [Mass/Vol] 11.4 g/dL Low 13.0-16.5 [facility] Comment on above: Performed By: #### L 300.4310, L100.0100, L300.3900 ####[facility] [address] [place], [address] IG% 0.400 Normal 0.0-0.9 [facility] Comment on above: Result Comment: IG% - Immature Granulocytes (promyelocytes, myelocytes andmetamyelocytes) > 1% indicates that a LEFT SHIFT is Present. Performed By: #### L 300.4310, L100.0100, L300.3900 ####[facility] [address] [place], [address] Lymphocytes/100 WBC (Bld) 21.6 % Normal 19-41 [facility] Comment on above: Performed By: #### L 300.4310, L100.0100, L300.3900 ####[facility] [address] [place], [address] MCH (RBC) [Entitic mass] 26.8 pg Low 27.0-32.0 [facility] Comment on above: Performed By: #### L 300.4310, L100.0100, L300.3900 ####[facility] [address] [place], [address] MCHC (RBC) [Mass/Vol] 31.5 g/dL Low 32-36 [facility] Comment on above: Performed By: #### L 300.4310, L100.0100, L300.3900 ####[facility] [address] [place], [address] MCV (RBC) [Entitic vol] 85.2 fL Normal 80-94 [facility] Comment on above: Performed By: #### L 300.4310, L100.0100, L300.3900 ####[facility] [address] [place], [address] Monocytes/100 WBC (Bld) 11.8 % High 0-10 [facility] Comment on above: Performed By: #### L 300.4310, L100.0100, L300.3900 ####[facility] [address] [place], [address] Neutrophils/100 WBC (Bld) 60.9 % Normal 47-70 [facility] Comment on above: Performed By: #### L 300.4310, L100.0100, L300.3900 ####[facility] [address] [place], [address] Nucleated RBC (Bld) [#/Vol] 0 10*3/uL Normal 0-5 [facility] Comment on above: Performed By: #### L 300.4310, L100.0100, L300.3900 ####[facility] [address] [place], [address] Platelet mean volume (Bld) [Entitic vol] 9.5 fL Normal 6.2-12.0 [facility] Comment on above: Performed By: #### L 300.4310, L100.0100, L300.3900 ####[facility] [address] [place], [address] Platelets (Bld) [#/Vol] 344 10*3/uL Normal 150-450 [facility] Comment on above: Performed By: #### L 300.4310, L100.0100, L300.3900 ####[facility] [address] [place], [address] RBC (Bld) [#/Vol] 4.25 10*6/uL Low 4.6-6.2 [facility] Comment on above: Performed By: #### L 300.4310, L100.0100, L300.3900 ####[facility] [address] [place], [address] RDW SD 57.6 fl High 35.1-43.9 [facility] Comment on above: Performed By: #### L 300.4310, L100.0100, L300.3900 ####[facility] [address] [place], [address] WBC (Bld) [#/Vol] 6.9 10*3/uL Normal 4.4-11.0 [facility] Comment on above: Performed By: #### L 300.4310, L100.0100, L300.3900 ####[facility] [address] [place], [address] CBC-Complete Blood Cnt No Di ffon 06-08-2024 Erythrocyte distribution width (RBC) [Ratio] 18.8 % High 11.6-14.6 [facility] Comment on above: Performed By: #### L 100.0500 ####[facility] [address] [place], [address] Hematocrit (Bld) [Volume fraction] 30.7 % Low 40-54 [facility] Comment on above: Performed By: #### L 100.0500 ####[facility] [address] [place], [address] Hemoglobin (Bld) [Mass/Vol] 9.8 g/dL Low 13.0-16.5 [facility] Comment on above: Performed By: #### L 100.0500 ####[facility] [address] [place], [address] MCH (RBC) [Entitic mass] 27.1 pg Normal 27.0-32.0 [facility] Comment on above: Performed By: #### L 100.0500 ####[facility] [address] [place], [address] MCHC (RBC) [Mass/Vol] 31.9 g/dL Low 32-36 [facility] Comment on above: Performed By: #### L 100.0500 ####[facility] [address] [place], [address] MCV (RBC) [Entitic vol] 84.8 fL Normal 80-94 [facility] Comment on above: Performed By: #### L 100.0500 ####[facility] [address] [place], [address] Platelet mean volume (Bld) [Entitic vol] 9.1 fL Normal 6.2-12.0 [facility] Comment on above: Performed By: #### L 100.0500 ####[facility] [address] [place], [address] Platelets (Bld) [#/Vol] 284 10*3/uL Normal 150-450 [facility] Comment on above: Performed By: #### L 100.0500 ####[facility] [address] [place], [address] RBC (Bld) [#/Vol] 3.62 10*6/uL Low 4.6-6.2 [facility] Comment on above: Performed By: #### L 100.0500 ####[facility] [address] [place], [address] RDW SD 57.6 fl High 35.1-43.9 [facility] Comment on above: Performed By: #### L 100.0500 ####[facility] [address] [place], [address] WBC (Bld) [#/Vol] 9.9 10*3/uL Normal 4.4-11.0 [facility] Comment on above: Performed By: #### L 100.0500 ####[facility] [address] [place], [address] CTA Chst, Abd, Pel W and/or WOon 06-08-2024 CTA Chst, Abd, Pel W and/or WO Normal [facility] Chest 1 View (Portable)on Chest 1 View (Portable) Normal [facility] Emergency Department Summary on 06-08-2024 Emergency Department Summary Normal [facility] H AND P Exam - Hospitaliston 06-08-2024 H&P Exam - Hospitalist Normal [facility] L501.4020on 06-08-2024 TROPONIN-I HS 96 pg/mL High 3.0-78.0 [facility] Comment on above: Result Comment: Plea se Note: New Test Units and Gender Specific Reference Ranges. For more information see Policy Stat Procedure [place] High Sensitivity Troponin (TNIH) and attachments. Performed By: #### L 501.4020 ####[facility] [address] [place], [address] L501.5425on 06-08-2024 TROPONIN-I HS 97 pg/mL High 3.0-78.0 [facility] Comment on above: Order Comment: 1Y Result Comment: Plea se Note: New Test Units and Gender Specific Reference Ranges. For more information see Policy Stat Procedure [place] High Sensitivity Troponin (TNIH) and attachments. Performed By: #### L 503.6620, L300.3900, L100.0100, L501.5425, L500.2500 ####[facility] [address] [place], [address] Lipaseon 06-08-2024 Lipase [Catalytic activity/Vol] 26 U/L Normal 13-75 [facility] Comment on above: Result Comment: Plea se note:LIPASE revised reference range effective 22.New Lipase methodology. Expected to produce lower valuesthan the previous assay method.NEW Reference Range: 13 - 75 U/L Performed By: #### L 500.3400, L501.2450 ####[facility] [address] [place], [address] Liver Profileon 06-08-2024 Albumin [Mass/Vol] 3.6 g/dL Normal 3.2-5.0 [facility] Comment on above: Performed By: #### L 500.3400, L501.2450 ####[facility] [address] [place], [address] ALK P 103 U/L Normal 45-117 [facility] Comment on above: Performed By: #### L 500.3400, L501.2450 ####[facility] [address] [place], [address] ALT [Catalytic activity/Vol] 20 U/L Normal 16-61 [facility] Comment on above: Performed By: #### L 500.3400, L501.2450 ####[facility] [address] [place], [address] AST [Catalytic activity/Vol] 23 U/L Normal 15-37 [facility] Comment on above: Performed By: #### L 500.3400, L501.2450 ####[facility] [address] [place], [address] Bilirubin [Mass/Vol] 0.60 mg/dL Normal 0.20-1.00 [facility] Comment on above: Result Comment: For patients on eltrombopag therapy, use of Dimension [place] TBIL is not recommended. Performed By: #### L 500.3400, L501.2450 ####[facility] [address] [place], [address] Bilirubin.direct [Mass/Vol] 0.18 mg/dL Normal 0.00-0.30 [facility] Comment on above: Performed By: #### L 500.3400, L501.2450 ####[facility] [address] [place], [address] Globulin (S) [Mass/Vol] 3.5 g/dL Normal 2.2-4.2 [facility] Comment on above: Performed By: #### L 500.3400, L501.2450 ####[facility] [address] [place], [address] T PROT 7.1 g/dL Normal 6.4-8.2 [facility] Comment on above: Performed By: #### L 500.3400, L501.2450 ####[facility] [address] [place], [address] Partial Thromboplast Timeon 06-08-2024 aPTT Coag (Bld) [Time] 32.9 s Normal 24.1-36.2 [facility] Comment on above: Performed By: #### L 300.4310, L100.0100, L300.3900 ####[facility] [address] [place], [address] Prothrombin Time w/INRon INR Coag (PPP) [Relative time] 1.1 {INR} Normal [facility] Comment on above: Performed By: #### L 503.6620, L300.3900, L100.0100, L501.5425, L500.2500 ####[facility] [address] [place], [address] PT Coag (PPP) [Time] 14.3 s Normal 11.7-14.9 [facility] Comment on above: Performed By: #### L 503.6620, L300.3900, L100.0100, L501.5425, L500.2500 ####[facility] [address] [place], [address] INR Coag (PPP) [Relative time] 1.1 {INR} Normal [facility] Comment on above: Performed By: #### L 300.4310, L100.0100, L300.3900 ####[facility] [address] [place], [address] PT Coag (PPP) [Time] 13.9 s Normal 11.7-14.9 [facility] Comment on above: Performed By: #### L 300.4310, L100.0100, L300.3900 ####[facility] [address] [place], [address] Trichrome (control)on 2023 Trichrome (control) Normal [facility] Comment on above: Performed By: #### P TRI ####[facility] [address] [place], [address] 12 Lead EKGon 06-07-2024 12 Lead EKG Normal [facility] Basic Metabolic Profile (BMP )on 06-07-2024 BUN/CRE 18.3 RATIO Normal 10-20 [facility] Comment on above: Performed By: #### L 500.2500, L100.0100 ####[facility] [address] [place], [address] CA,Total 9.7 mg/dL Normal 8.5-10.1 [facility] Comment on above: Performed By: #### L 500.2500, L100.0100 ####[facility] [address] [place], [address] Chloride [Moles/Vol] 103 mmol/L Normal 98-107 [facility] Comment on above: Performed By: #### L 500.2500, L100.0100 ####[facility] [address] [place], [address] CO2 [Moles/Vol] 26.0 mmol/L Normal 21.0-32.0 [facility] Comment on above: Performed By: #### L 500.2500, L100.0100 ####[facility] [address] [place], [address] Creatinine [Mass/Vol] 1.04 mg/dL Normal 0.70-1.30 [facility] Comment on above: Result Comment: The validity of the calculated GFR GFRAA in patients over70 years has not been determined. Clinical correlation isessential. Performed By: #### L 500.2500, L100.0100 ####[facility] [address] [place], [address] ECRCL 52.96 ml/min Normal [facility] Comment on above: Performed By: #### L 500.2500, L100.0100 ####[facility] [address] [place], [address] EST GFR - AA 88 mL/min Normal >60 [facility] Comment on above: Result Comment: Afri can Ethiopian GFR Calc Performed By: #### L 500.2500, L100.0100 ####[facility] [address] [place], [address] GAP 7 Normal 5-15 [facility] Comment on above: Performed By: #### L 500.2500, L100.0100 ####[facility] [address] [place], [address] GFR/1.73 sq M.predicted among non-blacks MDRD (S/P/Bld) [Vol rate/Area] 73 mL/min/{1.73_m2} Normal >60 [facility] Comment on above: Result Comment: Non- GFR Calc Performed By: #### L 500.2500, L100.0100 ####[facility] [address] [place], [address] Glucose [Mass/Vol] 101 mg/dL Normal 74-106 [facility] Comment on above: Result Comment: Fast ing Glucose result from 100 to 125 mg/dLsuggests IMPAIRED HOMEOSTASIS per A.D.A. criteria. Performed By: #### L 500.2500, L100.0100 ####[facility] [address] [place], [address] Potassium [Moles/Vol] 4.1 mmol/L Normal 3.5-5.1 [facility] Comment on above: Performed By: #### L 500.2500, L100.0100 ####[facility] [address] [place], [address] Sodium [Moles/Vol] 136 mmol/L Normal 136-145 [facility] Comment on above: Performed By: #### L 500.2500, L100.0100 ####[facility] [address] [place], [address] Urea nitrogen [Mass/Vol] 19 mg/dL High 7-18 [facility] Comment on above: Performed By: #### L 500.2500, L100.0100 ####[facility] [address] [place], [address] CBC W/Diff, Automatedon 11-0 7-4 Absolute Lymph 1.13 X10 3/uL Normal 0.83-4.51 [facility] Comment on above: Performed By: #### L 500.2500, L100.0100 ####[facility] [address] [place], [address] Absolute Neut 3.7 X10 3/uL Normal 2.0-7.7 [facility] Comment on above: Performed By: #### L 500.2500, L100.0100 ####[facility] [address] [place], [address] Basophils/100 WBC (Bld) 0.4 % Normal 0-1 [facility] Comment on above: Performed By: #### L 500.2500, L100.0100 ####[facility] [address] [place], [address] Eosinophils/100 WBC (Bld) 4.1 % Normal 0-5 [facility] Comment on above: Performed By: #### L 500.2500, L100.0100 ####[facility] [address] [place], [address] Erythrocyte distribution width (RBC) [Ratio] 18.9 % High 11.6-14.6 [facility] Comment on above: Performed By: #### L 500.2500, L100.0100 ####[facility] [address] [place], [address] Hematocrit (Bld) [Volume fraction] 35.0 % Low 40-54 [facility] Comment on above: Performed By: #### L 500.2500, L100.0100 ####[facility] [address] [place], [address] Hemoglobin (Bld) [Mass/Vol] 11.1 g/dL Low 13.0-16.5 [facility] Comment on above: Performed By: #### L 500.2500, L100.0100 ####[facility] [address] [place], [address] IG% 0.400 Normal 0.0-0.9 [facility] Comment on above: Result Comment: IG% - Immature Granulocytes (promyelocytes, myelocytes andmetamyelocytes) > 1% indicates that a LEFT SHIFT is Present. Performed By: #### L 500.2500, L100.0100 ####[facility] [address] [place], [address] Lymphocytes/100 WBC (Bld) 20.0 % Normal 19-41 [facility] Comment on above: Performed By: #### L 500.2500, L100.0100 ####[facility] [address] [place], [address] MCH (RBC) [Entitic mass] 27.1 pg Normal 27.0-32.0 [facility] Comment on above: Performed By: #### L 500.2500, L100.0100 ####[facility] [address] [place], [address] MCHC (RBC) [Mass/Vol] 31.7 g/dL Low 32-36 [facility] Comment on above: Performed By: #### L 500.2500, L100.0100 ####[facility] [address] [place], [address] MCV (RBC) [Entitic vol] 85.4 fL Normal 80-94 [facility] Comment on above: Performed By: #### L 500.2500, L100.0100 ####[facility] [address] [place], [address] Monocytes/100 WBC (Bld) 10.4 % High 0-10 [facility] Comment on above: Performed By: #### L 500.2500, L100.0100 ####[facility] [address] [place], [address] Neutrophils/100 WBC (Bld) 64.7 % Normal 47-70 [facility] Comment on above: Performed By: #### L 500.2500, L100.0100 ####[facility] [address] [place], [address] Nucleated RBC (Bld) [#/Vol] 0 10*3/uL Normal 0-5 [facility] Comment on above: Performed By: #### L 500.2500, L100.0100 ####[facility] [address] [place], [address] Platelet mean volume (Bld) [Entitic vol] 9.5 fL Normal 6.2-12.0 [facility] Comment on above: Performed By: #### L 500.2500, L100.0100 ####[facility] [address] [place], [address] Platelets (Bld) [#/Vol] 301 10*3/uL Normal 150-450 [facility] Comment on above: Performed By: #### L 500.2500, L100.0100 ####[facility] [address] [place], [address] RBC (Bld) [#/Vol] 4.10 10*6/uL Low 4.6-6.2 [facility] Comment on above: Performed By: #### L 500.2500, L100.0100 ####[facility] [address] [place], [address] RDW SD 57.8 fl High 35.1-43.9 [facility] Comment on above: Performed By: #### L 500.2500, L100.0100 ####[facility] [address] [place], [address] WBC (Bld) [#/Vol] 5.7 10*3/uL Normal 4.4-11.0 [facility] Comment on above: Performed By: #### L 500.2500, L100.0100 ####[facility] [address] [place], [address] Emergency Department Summary on 06-07-2024 Emergency Department Summary Normal [facility] Surgery Visit Reporton 06-07 Surgery Visit Report Normal [facility] Oncology Visit Reporton 05-03 Oncology Visit Report Normal [facility] PET/CT Tumor Base -Thigh Ini ton 05-29-2024 PET/CT Tumor Base -Thigh Init Normal [facility] Carcinoembryonic Antigenon 1 CEA 2.2 ng/mL Normal 0.0-4.7 [facility] Comment on above: Order Comment: Speci men Comment: A duplicate report has been generateddue to demographicSpecimen Comment: updates. Result Comment: Nons mokers <3.9 Smokers <5.6[employer] Electrochemiluminescence Immunoassay(ECLIA)Values obtained with different assay methods or kitscannot be used interchangeably. Results cannot beinterpreted as absolute evidence of the presence orabsence of malignant disease.Performed at: [facility] [address] [id number] Director: Jian Paredes PhD, Phone: [phone] Performed By: #### L 3100.2300, L503.6550 ####[facility] [address] [facility] [place], [address] C-reactive protein measureme nt by high sensitivity methodOrdered By: Papi Hernandez on 05-16-2024 C-Reactive Protein Extended Range 5.71 mg/L High 0.0-3.0 [facility] Comment on above: C-Reactive Protein ( CRP) provides useful information for thediagnosis, therapy and monitoring of inflammatory processesand associated diseases. For the evaluation of Relative Riskfor Cardiovascular Disease, a High Sensitivity CRP (HSCRP)should be ordered. C-reactive protein measurement by high sensitivity method 5.71 mg/L High 0.0-3.0 [facility] Comment on above: C-Reactive Protein ( CRP) provides useful information for thediagnosis, therapy and monitoring of inflammatory processesand associated diseases. For the evaluation of Relative Riskfor Cardiovascular Disease, a High Sensitivity CRP (HSCRP)should be ordered. CBC W/Diff, Automatedon 05-01 Absolute Lymph 1.28 X10 3/uL Normal 0.83-4.51 [facility] Comment on above: Performed By: #### L 101.9900, L100.9950, L503.6030, L501.6710, L100.0100, L500.4050, L900.0098 ####[facility] [address] [place], [address] Absolute Neut 3.8 X10 3/uL Normal 2.0-7.7 [facility] Comment on above: Performed By: #### L 101.9900, L100.9950, L503.6030, L501.6710, L100.0100, L500.4050, L900.0098 ####[facility] [address] [place], [address] Basophils/100 WBC (Bld) 0.3 % Normal 0-1 [facility] Comment on above: Performed By: #### L 101.9900, L100.9950, L503.6030, L501.6710, L100.0100, L500.4050, L900.0098 ####[facility] [address] [place], [address] Eosinophils/100 WBC (Bld) 2.6 % Normal 0-5 [facility] Comment on above: Performed By: #### L 101.9900, L100.9950, L503.6030, L501.6710, L100.0100, L500.4050, L900.0098 ####[facility] [address] [place], [address] Erythrocyte distribution width (RBC) [Ratio] 14.2 % Normal 11.6-14.6 [facility] Comment on above: Performed By: #### L 101.9900, L100.9950, L503.6030, L501.6710, L100.0100, L500.4050, L900.0098 ####[facility] [address] [place], [address] Hematocrit (Bld) [Volume fraction] 30.5 % Low 40-54 [facility] Comment on above: Performed By: #### L 101.9900, L100.9950, L503.6030, L501.6710, L100.0100, L500.4050, L900.0098 ####[facility] [address] [place], [address] Hemoglobin (Bld) [Mass/Vol] 9.6 g/dL Low 13.0-16.5 [facility] Comment on above: Performed By: #### L 101.9900, L100.9950, L503.6030, L501.6710, L100.0100, L500.4050, L900.0098 ####[facility] [address] [place], [address] IG% 0.300 Normal 0.0-0.9 [facility] Comment on above: Result Comment: IG% - Immature Granulocytes (promyelocytes, myelocytes andmetamyelocytes) > 1% indicates that a LEFT SHIFT is Present. Performed By: #### L 101.9900, L100.9950, L503.6030, L501.6710, L100.0100, L500.4050, L900.0098 ####[facility] [address] [place], [address] Lymphocytes/100 WBC (Bld) 21.9 % Normal 19-41 [facility] Comment on above: Performed By: #### L 101.9900, L100.9950, L503.6030, L501.6710, L100.0100, L500.4050, L900.0098 ####[facility] [address] [place], [address] MCH (RBC) [Entitic mass] 25.9 pg Low 27.0-32.0 [facility] Comment on above: Performed By: #### L 101.9900, L100.9950, L503.6030, L501.6710, L100.0100, L500.4050, L900.0098 ####[facility] [address] [place], [address] MCHC (RBC) [Mass/Vol] 31.5 g/dL Low 32-36 [facility] Comment on above: Performed By: #### L 101.9900, L100.9950, L503.6030, L501.6710, L100.0100, L500.4050, L900.0098 ####[facility] [address] [place], [address] MCV (RBC) [Entitic vol] 82.2 fL Normal 80-94 [facility] Comment on above: Performed By: #### L 101.9900, L100.9950, L503.6030, L501.6710, L100.0100, L500.4050, L900.0098 ####[facility] [address] [place], [address] Monocytes/100 WBC (Bld) 9.6 % Normal 0-10 [facility] Comment on above: Performed By: #### L 101.9900, L100.9950, L503.6030, L501.6710, L100.0100, L500.4050, L900.0098 ####[facility] [address] [place], [address] Neutrophils/100 WBC (Bld) 65.3 % Normal 47-70 [facility] Comment on above: Performed By: #### L 101.9900, L100.9950, L503.6030, L501.6710, L100.0100, L500.4050, L900.0098 ####[facility] [address] [place], [address] Nucleated RBC (Bld) [#/Vol] 0 10*3/uL Normal 0-5 [facility] Comment on above: Performed By: #### L 101.9900, L100.9950, L503.6030, L501.6710, L100.0100, L500.4050, L900.0098 ####[facility] [address] [place], [address] Platelet mean volume (Bld) [Entitic vol] 9.1 fL Normal 6.2-12.0 [facility] Comment on above: Performed By: #### L 101.9900, L100.9950, L503.6030, L501.6710, L100.0100, L500.4050, L900.0098 ####[facility] [address] [place], [address] Platelets (Bld) [#/Vol] 373 10*3/uL Normal 150-450 [facility] Comment on above: Performed By: #### L 101.9900, L100.9950, L503.6030, L501.6710, L100.0100, L500.4050, L900.0098 ####[facility] [address] [place], [address] RBC (Bld) [#/Vol] 3.71 10*6/uL Low 4.6-6.2 [facility] Comment on above: Performed By: #### L 101.9900, L100.9950, L503.6030, L501.6710, L100.0100, L500.4050, L900.0098 ####[facility] [address] [place], [address] RDW SD 42.2 fl Normal 35.1-43.9 [facility] Comment on above: Performed By: #### L 101.9900, L100.9950, L503.6030, L501.6710, L100.0100, L500.4050, L900.0098 ####[facility] [address] [place], [address] WBC (Bld) [#/Vol] 5.8 10*3/uL Normal 4.4-11.0 [facility] Comment on above: Performed By: #### L 101.9900, L100.9950, L503.6030, L501.6710, L100.0100, L500.4050, L900.0098 ####[facility] [address] [place], [address] CRPon 05-16-2024 C-REACTIVE PROT 5.71 mg/L High 0.0-3.0 [facility] Comment on above: Result Comment: C-Re active Protein (CRP) provides useful information for thediagnosis, therapy and monitoring of inflammatory processesand associated diseases. For the evaluation of Relative Riskfor Cardiovascular Disease, a High Sensitivity CRP (HSCRP)should be ordered. Performed By: #### L 101.9900, L100.9950, L503.6030, L501.6710, L100.0100, L500.4050, L900.0098 ####[facility] [address] [place], [address] Comprehensive Metabolic Prof ilon 05-16-2024 Albumin [Mass/Vol] 3.9 g/dL Normal 3.2-5.0 [facility] Comment on above: Performed By: #### L 101.9900, L100.9950, L503.6030, L501.6710, L100.0100, L500.4050, L900.0098 ####[facility] [address] [place], [place], [address] Albumin/Globulin [Mass ratio] 1.1 {ratio} Normal 0.9-2.4 [facility] Comment on above: Performed By: #### L 101.9900, L100.9950, L503.6030, L501.6710, L100.0100, L500.4050, L900.0098 ####[facility] [address] [place], [address] ALK P 101 U/L Normal 45-117 [facility] Comment on above: Performed By: #### L 101.9900, L100.9950, L503.6030, L501.6710, L100.0100, L500.4050, L900.0098 ####[facility] [address] [place], [address] ALT [Catalytic activity/Vol] 19 U/L Normal 16-61 [facility] Comment on above: Performed By: #### L 101.9900, L100.9950, L503.6030, L501.6710, L100.0100, L500.4050, L900.0098 ####[facility] [address] [place], [address] AST [Catalytic activity/Vol] 15 U/L Normal 15-37 [facility] Comment on above: Performed By: #### L 101.9900, L100.9950, L503.6030, L501.6710, L100.0100, L500.4050, L900.0098 ####[facility] [address] [place], [address] Bilirubin [Mass/Vol] 0.50 mg/dL Normal 0.20-1.00 [facility] Comment on above: Result Comment: For patients on eltrombopag therapy, use of Dimension [place] TBIL is not recommended. Performed By: #### L 101.9900, L100.9950, L503.6030, L501.6710, L100.0100, L500.4050, L900.0098 ####[facility] [address] [place], [address] BUN/CRE 16.7 RATIO Normal 10-20 [facility] Comment on above: Performed By: #### L 101.9900, L100.9950, L503.6030, L501.6710, L100.0100, L500.4050, L900.0098 ####[facility] [address] [place], [address] CA,Total 9.6 mg/dL Normal 8.5-10.1 [facility] Comment on above: Performed By: #### L 101.9900, L100.9950, L503.6030, L501.6710, L100.0100, L500.4050, L900.0098 ####[facility] [address] [place], [address] Chloride [Moles/Vol] 105 mmol/L Normal 98-107 [facility] Comment on above: Performed By: #### L 101.9900, L100.9950, L503.6030, L501.6710, L100.0100, L500.4050, L900.0098 ####[facility] [address] [place], [address] CO2 [Moles/Vol] 26.0 mmol/L Normal 21.0-32.0 [facility] Comment on above: Performed By: #### L 101.9900, L100.9950, L503.6030, L501.6710, L100.0100, L500.4050, L900.0098 ####[facility] [address] [place], [address] Creatinine [Mass/Vol] 1.14 mg/dL Normal 0.70-1.30 [facility] Comment on above: Result Comment: The validity of the calculated GFR GFRAA in patients over70 years has not been determined. Clinical correlation isessential. Performed By: #### L 101.9900, L100.9950, L503.6030, L501.6710, L100.0100, L500.4050, L900.0098 ####[facility] [address] [place], [address] EST GFR - AA 79 mL/min Normal >60 [facility] Comment on above: Result Comment: Afri can Ethiopian GFR Calc Performed By: #### L 101.9900, L100.9950, L503.6030, L501.6710, L100.0100, L500.4050, L900.0098 ####[facility] [address] [place], [address] GAP 4 Low 5-15 [facility] Comment on above: Performed By: #### L 101.9900, L100.9950, L503.6030, L501.6710, L100.0100, L500.4050, L900.0098 ####[facility] [address] [place], [address] GFR/1.73 sq M.predicted among non-blacks MDRD (S/P/Bld) [Vol rate/Area] 66 mL/min/{1.73_m2} Normal >60 [facility] Comment on above: Result Comment: Non- GFR Calc Performed By: #### L 101.9900, L100.9950, L503.6030, L501.6710, L100.0100, L500.4050, L900.0098 ####[facility] [address] [place], [address] Globulin (S) [Mass/Vol] 3.7 g/dL Normal 2.2-4.2 [facility] Comment on above: Performed By: #### L 101.9900, L100.9950, L503.6030, L501.6710, L100.0100, L500.4050, L900.0098 ####[facility] [address] [place], [address] Glucose [Mass/Vol] 102 mg/dL Normal 74-106 [facility] Comment on above: Result Comment: Fast ing Glucose result from 100 to 125 mg/dLsuggests IMPAIRED HOMEOSTASIS per A.D.A. criteria. Performed By: #### L 101.9900, L100.9950, L503.6030, L501.6710, L100.0100, L500.4050, L900.0098 ####[facility] [address] [place], [address] Potassium [Moles/Vol] 4.4 mmol/L Normal 3.5-5.1 [facility] Comment on above: Performed By: #### L 101.9900, L100.9950, L503.6030, L501.6710, L100.0100, L500.4050, L900.0098 ####[facility] [address] [place], [address] Sodium [Moles/Vol] 135 mmol/L Low 136-145 [facility] Comment on above: Performed By: #### L 101.9900, L100.9950, L503.6030, L501.6710, L100.0100, L500.4050, L900.0098 ####[facility] [address] [place], [address] T PROT 7.6 g/dL Normal 6.4-8.2 [facility] Comment on above: Performed By: #### L 101.9900, L100.9950, L503.6030, L501.6710, L100.0100, L500.4050, L900.0098 ####[facility] [address] [place], [address] Urea nitrogen [Mass/Vol] 19 mg/dL High 7-18 [facility] Comment on above: Performed By: #### L 101.9900, L100.9950, L503.6030, L501.6710, L100.0100, L500.4050, L900.0098 ####[facility] [address] [place], [address] Erythrocyte Sed Rateon 05-16 SED RATE 13 mm/hr Normal 0-20 [facility] Comment on above: Performed By: #### L 101.9900, L100.9950, L503.6030, L501.6710, L100.0100, L500.4050, L900.0098 ####[facility] [address] [place], [address] Erythrocyte sedimentation ra teOrdered By: Papi Hernandez on 05-16-2024 ESR (Bld) [Velocity] 13 mm/h 0-20 [facility] Ferritinon 05-16-2024 Ferritin [Mass/Vol] 31 ng/mL Normal 26-388 [facility] Comment on above: Performed By: #### L 3100.2300, L503.6550 ####[facility] [address] [place], [place], [id number] Ferritin measurementOrdered By: Papi Hernandez on 05-16-2024 Ferritin [Mass/Vol] 31 ng/mL 26-388 [facility] Hemoglobin (Reticulocytes) [ Entitic mass]Ordered By: Papi Hernandez on 05-16-2024 Reticulocyte Hemoglobin Equivalent 27.6 pg Low 30-35 [facility] Immature reticulocyte fracti onOrdered By: Papi Hernandez on 05-16-2024 Immature Reticulocyte Fraction 16.60 % High 3.00-15.90 [facility] Iron (Unsp spec) [Mass/Mass] Ordered By: Papi Hernandez on 05-16-2024 Iron [Mass/Vol] 29 ug/dL Low 65-175 [facility] Iron measurement (mass/mass) Ordered By: Papi Hernandez on 05-16-2024 Iron (Unsp spec) [Mass/Mass] 29 ug/dL Low 65-175 [facility] Iron saturation [Mass fracti on]Ordered By: Papi Hernandez on 05-16-2024 Iron Saturation 7.2 % Low 15.0-55.0 [facility] Iron+Iron Binding Capacityon 05-16-2024 Iron [Mass/Vol] 29 ug/dL Low 65-175 [facility] Comment on above: Performed By: #### L 101.9900, L100.9950, L503.6030, L501.6710, L100.0100, L500.4050, L900.0098 ####[facility] [address] [place], [place], [id number] IRON SATURATION 7.2 Low 15.0-55.0 [facility] Comment on above: Performed By: #### L 101.9900, L100.9950, L503.6030, L501.6710, L100.0100, L500.4050, L900.0098 ####[facility] [address] [place], [place], [id number] TIBC 401 ug/dL Normal 250-450 [facility] Comment on above: Performed By: #### L 101.9900, L100.9950, L503.6030, L501.6710, L100.0100, L500.4050, L900.0098 ####[facility] [address] [place], [place], [id number] NATERAon 05-16-2024 NATURA SEE SCANNED REPORT Normal [facility] Comment on above: Performed By: #### L 101.9900, L100.9950, L503.6030, L501.6710, L100.0100, L500.4050, L900.0098 ####[facility] [address] [place], [place], [id number] Oncology Visit Reporton 05-01 Oncology Visit Report Normal [facility] Retic Panelon 05-16-2024 IM RET FRACTION 16.60 High 3.00-15.90 [facility] Comment on above: Performed By: #### L 101.9900, L100.9950, L503.6030, L501.6710, L100.0100, L500.4050, L900.0098 ####[facility] [address] [place], [place], [id number] RET-HE 27.6 pg Low 30-35 [facility] Comment on above: Performed By: #### L 101.9900, L100.9950, L503.6030, L501.6710, L100.0100, L500.4050, L900.0098 ####[facility] [address] [place], [address] Retic Count 1.19 Normal 0.5-1.5 [facility] Comment on above: Performed By: #### L 101.9900, L100.9950, L503.6030, L501.6710, L100.0100, L500.4050, L900.0098 ####[facility] [address] [place], [address] Reticulocyte hemoglobin equi valent (RET-He) measurementOrdered By: Papi Hernandez on 05-16-2024 Hemoglobin (Reticulocytes) [Entitic mass] 27.6 pg Low 30-35 [facility] Reticulocytes Auto (Bld) [#/ Vol]Ordered By: Papi Hernandez on 05-16-2024 Reticulocyte Count 1.19 % 0.5-1.5 [facility] Reticulocytes/100 RBC (Bld) 1.19 % 0.5-1.5 [facility] Serum or plasma iron saturat ion measurement (mass fraction)Ordered By: Papi Hernandez on 05-16-2024 Iron saturation [Mass fraction] 7.2 % Low 15.0-55.0 [facility] TIBCOrdered By: Papi Hernandez on 05-16-2024 Total Iron Binding Capacity 401 ug/dL 250-450 [facility] Surgery Visit Reporton 05-10 Surgery Visit Report Normal [facility] Basic Metabolic Profile (BMP )on 05-07-2024 BUN/CRE 13.7 RATIO Normal 10-20 [facility] Comment on above: Performed By: #### L 100.0100, L500.2500 ####[facility] [address] [place], [address] CA,Total 9.5 mg/dL Normal 8.5-10.1 [facility] Comment on above: Performed By: #### L 100.0100, L500.2500 ####[facility] [address] [place], [address] Chloride [Moles/Vol] 103 mmol/L Normal 98-107 [facility] Comment on above: Performed By: #### L 100.0100, L500.2500 ####[facility] [address] [place], [address] CO2 [Moles/Vol] 25.0 mmol/L Normal 21.0-32.0 [facility] Comment on above: Performed By: #### L 100.0100, L500.2500 ####[facility] [address] [place], [address] Creatinine [Mass/Vol] 1.17 mg/dL Normal 0.70-1.30 [facility] Comment on above: Result Comment: The validity of the calculated GFR GFRAA in patients over70 years has not been determined. Clinical correlation isessential. Performed By: #### L 100.0100, L500.2500 ####[facility] [address] [place], [address] EST GFR - AA 77 mL/min Normal >60 [facility] Comment on above: Result Comment: Afri can Ethiopian GFR Calc Performed By: #### L 100.0100, L500.2500 ####[facility] [address] [place], [address] GAP 7 Normal 5-15 [facility] Comment on above: Performed By: #### L 100.0100, L500.2500 ####[facility] [address] [place], [address] GFR/1.73 sq M.predicted among non-blacks MDRD (S/P/Bld) [Vol rate/Area] 64 mL/min/{1.73_m2} Normal >60 [facility] Comment on above: Result Comment: Non- GFR Calc Performed By: #### L 100.0100, L500.2500 ####[facility] [address] [place], [address] Glucose [Mass/Vol] 112 mg/dL High 74-106 [facility] Comment on above: Result Comment: Fast ing Glucose result from 100 to 125 mg/dLsuggests IMPAIRED HOMEOSTASIS per A.D.A. criteria. Performed By: #### L 100.0100, L500.2500 ####[facility] [address] [place], [address] Potassium [Moles/Vol] 4.6 mmol/L Normal 3.5-5.1 [facility] Comment on above: Performed By: #### L 100.0100, L500.2500 ####[facility] [address] [place], [address] Sodium [Moles/Vol] 135 mmol/L Low 136-145 [facility] Comment on above: Performed By: #### L 100.0100, L500.2500 ####[facility] [address] [place], [address] Urea nitrogen [Mass/Vol] 16 mg/dL Normal 7-18 [facility] Comment on above: Performed By: #### L 100.0100, L500.2500 ####[facility] [address] [place], [address] CBC W/Diff, Automatedon 10-0 7-2023 Absolute Lymph 1.28 X10 3/uL Normal 0.83-4.51 [facility] Comment on above: Performed By: #### L 100.0100, L500.2500 ####[facility] [address] [place], [address] Absolute Neut 3.6 X10 3/uL Normal 2.0-7.7 [facility] Comment on above: Performed By: #### L 100.0100, L500.2500 ####[facility] [address] [place], [address] Basophils/100 WBC (Bld) 0.4 % Normal 0-1 [facility] Comment on above: Performed By: #### L 100.0100, L500.2500 ####[facility] [address] [place], [address] Eosinophils/100 WBC (Bld) 1.8 % Normal 0-5 [facility] Comment on above: Performed By: #### L 100.0100, L500.2500 ####[facility] [address] [place], [address] Erythrocyte distribution width (RBC) [Ratio] 14.3 % Normal 11.6-14.6 [facility] Comment on above: Performed By: #### L 100.0100, L500.2500 ####[facility] [address] [place], [address] Hematocrit (Bld) [Volume fraction] 29.4 % Low 40-54 [facility] Comment on above: Performed By: #### L 100.0100, L500.2500 ####[facility] [address] [place], [address] Hemoglobin (Bld) [Mass/Vol] 8.8 g/dL Low 13.0-16.5 [facility] Comment on above: Performed By: #### L 100.0100, L500.2500 ####[facility] [address] [place], [address] IG% 0.500 Normal 0.0-0.9 [facility] Comment on above: Result Comment: IG% - Immature Granulocytes (promyelocytes, myelocytes andmetamyelocytes) > 1% indicates that a LEFT SHIFT is Present. Performed By: #### L 100.0100, L500.2500 ####[facility] [address] [place], [address] Lymphocytes/100 WBC (Bld) 23.0 % Normal 19-41 [facility] Comment on above: Performed By: #### L 100.0100, L500.2500 ####[facility] [address] [place], [address] MCH (RBC) [Entitic mass] 25.4 pg Low 27.0-32.0 [facility] Comment on above: Performed By: #### L 100.0100, L500.2500 ####[facility] [address] [place], [address] MCHC (RBC) [Mass/Vol] 29.9 g/dL Low 32-36 [facility] Comment on above: Performed By: #### L 100.0100, L500.2500 ####[facility] [address] [place], [address] MCV (RBC) [Entitic vol] 85.0 fL Normal 80-94 [facility] Comment on above: Performed By: #### L 100.0100, L500.2500 ####[facility] [address] [place], [address] Monocytes/100 WBC (Bld) 10.4 % High 0-10 [facility] Comment on above: Performed By: #### L 100.0100, L500.2500 ####[facility] [address] [place], [address] Neutrophils/100 WBC (Bld) 63.9 % Normal 47-70 [facility] Comment on above: Performed By: #### L 100.0100, L500.2500 ####[facility] [address] [place], [address] Nucleated RBC (Bld) [#/Vol] 0 10*3/uL Normal 0-5 [facility] Comment on above: Performed By: #### L 100.0100, L500.2500 ####[facility] [address] [place], [address] Platelet mean volume (Bld) [Entitic vol] 9.8 fL Normal 6.2-12.0 [facility] Comment on above: Performed By: #### L 100.0100, L500.2500 ####[facility] [address] [place], [address] Platelets (Bld) [#/Vol] 416 10*3/uL Normal 150-450 [facility] Comment on above: Performed By: #### L 100.0100, L500.2500 ####[facility] [address] [place], [address] RBC (Bld) [#/Vol] 3.46 10*6/uL Low 4.6-6.2 [facility] Comment on above: Performed By: #### L 100.0100, L500.2500 ####[facility] [address] [place], [address] RDW SD 44.5 fl High 35.1-43.9 [facility] Comment on above: Performed By: #### L 100.0100, L500.2500 ####[facility] [address] [place], [address] WBC (Bld) [#/Vol] 5.6 10*3/uL Normal 4.4-11.0 [facility] Comment on above: Performed By: #### L 100.0100, L500.2500 ####[facility] [address] [place], [address] Basic Metabolic Profile (BMP )on 05-01-2024 BUN/CRE 16.2 RATIO Normal 10-20 [facility] Comment on above: Performed By: #### L 100.0100, L500.2500 ####[facility] [address] [place], [address] CA,Total 9.3 mg/dL Normal 8.5-10.1 [facility] Comment on above: Performed By: #### L 100.0100, L500.2500 ####[facility] [address] [place], [address] Chloride [Moles/Vol] 96 mmol/L Low 98-107 [facility] Comment on above: Performed By: #### L 100.0100, L500.2500 ####[facility] [address] [place], [address] CO2 [Moles/Vol] 24.0 mmol/L Normal 21.0-32.0 [facility] Comment on above: Performed By: #### L 100.0100, L500.2500 ####[facility] [address] [place], [address] Creatinine [Mass/Vol] 1.30 mg/dL Normal 0.70-1.30 [facility] Comment on above: Result Comment: The validity of the calculated GFR GFRAA in patients over70 years has not been determined. Clinical correlation isessential. Performed By: #### L 100.0100, L500.2500 ####[facility] [address] [place], [address] ECRCL 42.37 ml/min Normal [facility] Comment on above: Performed By: #### L 100.0100, L500.2500 ####[facility] [address] [place], [address] EST GFR - AA 68 mL/min Normal >60 [facility] Comment on above: Result Comment: Afri can Ethiopian GFR Calc Performed By: #### L 100.0100, L500.2500 ####[facility] [address] [place], [address] GAP 9 Normal 5-15 [facility] Comment on above: Performed By: #### L 100.0100, L500.2500 ####[facility] [address] [place], [address] GFR/1.73 sq M.predicted among non-blacks MDRD (S/P/Bld) [Vol rate/Area] 56 mL/min/{1.73_m2} Low >60 [facility] Comment on above: Result Comment: Non- GFR Calc Performed By: #### L 100.0100, L500.2500 ####[facility] [address] [place], [address] Glucose [Mass/Vol] 111 mg/dL High 74-106 [facility] Comment on above: Result Comment: Fast ing Glucose result from 100 to 125 mg/dLsuggests IMPAIRED HOMEOSTASIS per A.D.A. criteria. Performed By: #### L 100.0100, L500.2500 ####[facility] [address] [place], [address] Potassium [Moles/Vol] 4.2 mmol/L Normal 3.5-5.1 [facility] Comment on above: Performed By: #### L 100.0100, L500.2500 ####[facility] [address] [place], [address] Sodium [Moles/Vol] 128 mmol/L Low 136-145 [facility] Comment on above: Performed By: #### L 100.0100, L500.2500 ####[facility] [address] [place], [address] Urea nitrogen [Mass/Vol] 21 mg/dL High 7-18 [facility] Comment on above: Performed By: #### L 100.0100, L500.2500 ####[facility] [address] [place], [address] CBC W/Diff, Automatedon 10-0 1-4 Absolute Lymph 1.58 X10 3/uL Normal 0.83-4.51 [facility] Comment on above: Performed By: #### L 100.0100, L500.2500 ####[facility] [address] [place], [address] Absolute Neut 6.7 X10 3/uL Normal 2.0-7.7 [facility] Comment on above: Performed By: #### L 100.0100, L500.2500 ####[place] [facility] [address] [place], [address] Basophils/100 WBC (Bld) 0.3 % Normal 0-1 [facility] Comment on above: Performed By: #### L 100.0100, L500.2500 ####[facility] [address] [place], [address] Eosinophils/100 WBC (Bld) 3.0 % Normal 0-5 [facility] Comment on above: Performed By: #### L 100.0100, L500.2500 ####[facility] [address] [place], [address] Erythrocyte distribution width (RBC) [Ratio] 14.2 % Normal 11.6-14.6 [facility] Comment on above: Performed By: #### L 100.0100, L500.2500 ####[facility] [address] [place], [address] Hematocrit (Bld) [Volume fraction] 30.5 % Low 40-54 [facility] Comment on above: Performed By: #### L 100.0100, L500.2500 ####[facility] [address] [place], [address] Hemoglobin (Bld) [Mass/Vol] 9.5 g/dL Low 13.0-16.5 [facility] Comment on above: Performed By: #### L 100.0100, L500.2500 ####[facility] [address] [place], [address] IG% 0.800 Normal 0.0-0.9 [facility] Comment on above: Result Comment: IG% - Immature Granulocytes (promyelocytes, myelocytes andmetamyelocytes) > 1% indicates that a LEFT SHIFT is Present. Performed By: #### L 100.0100, L500.2500 ####[facility] [address] [place], [address] Lymphocytes/100 WBC (Bld) 16.4 % Low 19-41 [facility] Comment on above: Performed By: #### L 100.0100, L500.2500 ####[facility] [address] [place], [address] MCH (RBC) [Entitic mass] 25.7 pg Low 27.0-32.0 [facility] Comment on above: Performed By: #### L 100.0100, L500.2500 ####[facility] [address] [place], [address] MCHC (RBC) [Mass/Vol] 31.1 g/dL Low 32-36 [facility] Comment on above: Performed By: #### L 100.0100, L500.2500 ####[facility] [address] [place], [address] MCV (RBC) [Entitic vol] 82.4 fL Normal 80-94 [facility] Comment on above: Performed By: #### L 100.0100, L500.2500 ####[facility] [address] [place], [address] Monocytes/100 WBC (Bld) 9.7 % Normal 0-10 [facility] Comment on above: Performed By: #### L 100.0100, L500.2500 ####[facility] [address] [place], [address] Neutrophils/100 WBC (Bld) 69.8 % Normal 47-70 [facility] Comment on above: Performed By: #### L 100.0100, L500.2500 ####[facility] [address] [place], [address] Nucleated RBC (Bld) [#/Vol] 0 10*3/uL Normal 0-5 [facility] Comment on above: Performed By: #### L 100.0100, L500.2500 ####[facility] [address] [place], [address] Platelet mean volume (Bld) [Entitic vol] 9.7 fL Normal 6.2-12.0 [facility] Comment on above: Performed By: #### L 100.0100, L500.2500 ####[facility] [address] [place], [address] Platelets (Bld) [#/Vol] 440 10*3/uL Normal 150-450 [facility] Comment on above: Performed By: #### L 100.0100, L500.2500 ####[facility] [address] [place], [address] RBC (Bld) [#/Vol] 3.70 10*6/uL Low 4.6-6.2 [facility] Comment on above: Performed By: #### L 100.0100, L500.2500 ####[facility] [address] [place], [address] RDW SD 42.2 fl Normal 35.1-43.9 [facility] Comment on above: Performed By: #### L 100.0100, L500.2500 ####[facility] [address] [place], [address] WBC (Bld) [#/Vol] 9.7 10*3/uL Normal 4.4-11.0 [facility] Comment on above: Performed By: #### L 100.0100, L500.2500 ####[facility] [address] [place], [address] Basic Metabolic Profile (BMP )on 04-30-2024 BUN/CRE 15.6 RATIO Normal 10-20 [facility] Comment on above: Performed By: #### L 100.0100, L500.2500 ####[facility] [address] [place], [address] CA,Total 9.0 mg/dL Normal 8.5-10.1 [facility] Comment on above: Performed By: #### L 100.0100, L500.2500 ####[facility] [address] [place], [address] Chloride [Moles/Vol] 101 mmol/L Normal 98-107 [facility] Comment on above: Performed By: #### L 100.0100, L500.2500 ####[facility] [address] [place], [address] CO2 [Moles/Vol] 24.0 mmol/L Normal 21.0-32.0 [facility] Comment on above: Performed By: #### L 100.0100, L500.2500 ####[facility] [address] [place], [address] Creatinine [Mass/Vol] 1.09 mg/dL Normal 0.70-1.30 [facility] Comment on above: Result Comment: The validity of the calculated GFR GFRAA in patients over70 years has not been determined. Clinical correlation isessential. Performed By: #### L 100.0100, L500.2500 ####[facility] [address] [place], [address] ECRCL 50.54 ml/min Normal [facility] Comment on above: Performed By: #### L 100.0100, L500.2500 ####[facility] [address] [place], [address] EST GFR - AA 84 mL/min Normal >60 [facility] Comment on above: Result Comment: Afri can Ethiopian GFR Calc Performed By: #### L 100.0100, L500.2500 ####[facility] [address] [place], [address] GAP 9 Normal 5-15 [facility] Comment on above: Performed By: #### L 100.0100, L500.2500 ####[facility] [address] [place], [address] GFR/1.73 sq M.predicted among non-blacks MDRD (S/P/Bld) [Vol rate/Area] 69 mL/min/{1.73_m2} Normal >60 [facility] Comment on above: Result Comment: Non- GFR Calc Performed By: #### L 100.0100, L500.2500 ####[facility] [address] [place], [address] Glucose [Mass/Vol] 104 mg/dL Normal 74-106 [facility] Comment on above: Result Comment: Fast ing Glucose result from 100 to 125 mg/dLsuggests IMPAIRED HOMEOSTASIS per A.D.A. criteria. Performed By: #### L 100.0100, L500.2500 ####[facility] [address] [place], [address] Potassium [Moles/Vol] 4.0 mmol/L Normal 3.5-5.1 [facility] Comment on above: Performed By: #### L 100.0100, L500.2500 ####[facility] [address] [place], [address] Sodium [Moles/Vol] 134 mmol/L Low 136-145 [facility] Comment on above: Performed By: #### L 100.0100, L500.2500 ####[facility] [address] [place], [address] Urea nitrogen [Mass/Vol] 17 mg/dL Normal 7-18 [facility] Comment on above: Performed By: #### L 100.0100, L500.2500 ####[facility] [address] [place], [address] CBC W/Diff, Automatedon 09-3 0-4 Absolute Lymph 1.45 X10 3/uL Normal 0.83-4.51 [facility] Comment on above: Performed By: #### L 100.0100, L500.2500 ####[facility] [address] [place], [address] Absolute Neut 5.7 X10 3/uL Normal 2.0-7.7 [facility] Comment on above: Performed By: #### L 100.0100, L500.2500 ####[facility] [address] [place], [address] Basophils/100 WBC (Bld) 0.1 % Normal 0-1 [facility] Comment on above: Performed By: #### L 100.0100, L500.2500 ####[facility] [address] [place], [address] Eosinophils/100 WBC (Bld) 1.3 % Normal 0-5 [facility] Comment on above: Performed By: #### L 100.0100, L500.2500 ####[facility] [address] [place], [address] Erythrocyte distribution width (RBC) [Ratio] 14.0 % Normal 11.6-14.6 [facility] Comment on above: Performed By: #### L 100.0100, L500.2500 ####[facility] [address] [place], [address] Hematocrit (Bld) [Volume fraction] 28.7 % Low 40-54 [facility] Comment on above: Performed By: #### L 100.0100, L500.2500 ####[facility] [address] [place], [address] Hemoglobin (Bld) [Mass/Vol] 9.1 g/dL Low 13.0-16.5 [facility] Comment on above: Performed By: #### L 100.0100, L500.2500 ####[facility] [address] [place], [address] IG% 0.600 Normal 0.0-0.9 [facility] Comment on above: Result Comment: IG% - Immature Granulocytes (promyelocytes, myelocytes andmetamyelocytes) > 1% indicates that a LEFT SHIFT is Present. Performed By: #### L 100.0100, L500.2500 ####[facility] [address] [place], [address] Lymphocytes/100 WBC (Bld) 17.6 % Low 19-41 [facility] Comment on above: Performed By: #### L 100.0100, L500.2500 ####[facility] [address] [place], [address] MCH (RBC) [Entitic mass] 26.0 pg Low 27.0-32.0 [facility] Comment on above: Performed By: #### L 100.0100, L500.2500 ####[facility] [address] [place], [address] MCHC (RBC) [Mass/Vol] 31.7 g/dL Low 32-36 [facility] Comment on above: Performed By: #### L 100.0100, L500.2500 ####[facility] [address] [place], [address] MCV (RBC) [Entitic vol] 82.0 fL Normal 80-94 [facility] Comment on above: Performed By: #### L 100.0100, L500.2500 ####[facility] [address] [place], [address] Monocytes/100 WBC (Bld) 11.8 % High 0-10 [facility] Comment on above: Performed By: #### L 100.0100, L500.2500 ####[facility] [address] [place], [address] Neutrophils/100 WBC (Bld) 68.6 % Normal 47-70 [facility] Comment on above: Performed By: #### L 100.0100, L500.2500 ####[facility] [address] [place], [address] Nucleated RBC (Bld) [#/Vol] 0 10*3/uL Normal 0-5 [facility] Comment on above: Performed By: #### L 100.0100, L500.2500 ####[facility] [address] [place], [address] Platelet mean volume (Bld) [Entitic vol] 9.7 fL Normal 6.2-12.0 [facility] Comment on above: Performed By: #### L 100.0100, L500.2500 ####[facility] [address] [place], [address] Platelets (Bld) [#/Vol] 360 10*3/uL Normal 150-450 [facility] Comment on above: Performed By: #### L 100.0100, L500.2500 ####[facility] [address] [place], [address] RBC (Bld) [#/Vol] 3.50 10*6/uL Low 4.6-6.2 [facility] Comment on above: Performed By: #### L 100.0100, L500.2500 ####[facility] [address] [place], [address] RDW SD 41.8 fl Normal 35.1-43.9 [facility] Comment on above: Performed By: #### L 100.0100, L500.2500 ####[facility] [address] [place], [address] WBC (Bld) [#/Vol] 8.2 10*3/uL Normal 4.4-11.0 [facility] Comment on above: Performed By: #### L 100.0100, L500.2500 ####[facility] [address] [place], [address] Basic Metabolic Profile (BMP )on 04-29-2024 BUN/CRE 13.0 RATIO Normal 10-20 [facility] Comment on above: Performed By: #### L 100.0100, L500.2500 ####[facility] [address] [place], [address] CA,Total 9.1 mg/dL Normal 8.5-10.1 [facility] Comment on above: Performed By: #### L 100.0100, L500.2500 ####[facility] [address] [place], [address] Chloride [Moles/Vol] 101 mmol/L Normal 98-107 [facility] Comment on above: Performed By: #### L 100.0100, L500.2500 ####[facility] [address] [place], [address] CO2 [Moles/Vol] 26.0 mmol/L Normal 21.0-32.0 [facility] Comment on above: Performed By: #### L 100.0100, L500.2500 ####[facility] [address] [place], [address] Creatinine [Mass/Vol] 1.08 mg/dL Normal 0.70-1.30 [facility] Comment on above: Result Comment: The validity of the calculated GFR GFRAA in patients over70 years has not been determined. Clinical correlation isessential. Performed By: #### L 100.0100, L500.2500 ####[facility] [address] [place], [address] ECRCL 51.00 ml/min Normal [facility] Comment on above: Performed By: #### L 100.0100, L500.2500 ####[facility] [address] [place], [address] EST GFR - AA 85 mL/min Normal >60 [facility] Comment on above: Result Comment: Afri can Ethiopian GFR Calc Performed By: #### L 100.0100, L500.2500 ####[facility] [address] [place], [address] GAP 6 Normal 5-15 [facility] Comment on above: Performed By: #### L 100.0100, L500.2500 ####[facility] [address] [place], [address] GFR/1.73 sq M.predicted among non-blacks MDRD (S/P/Bld) [Vol rate/Area] 70 mL/min/{1.73_m2} Normal >60 [facility] Comment on above: Result Comment: Non- GFR Calc Performed By: #### L 100.0100, L500.2500 ####[facility] [address] [place], [address] Glucose [Mass/Vol] 109 mg/dL High 74-106 [facility] Comment on above: Result Comment: Fast ing Glucose result from 100 to 125 mg/dLsuggests IMPAIRED HOMEOSTASIS per A.D.A. criteria. Performed By: #### L 100.0100, L500.2500 ####[facility] [address] [place], [address] Potassium [Moles/Vol] 4.1 mmol/L Normal 3.5-5.1 [facility] Comment on above: Performed By: #### L 100.0100, L500.2500 ####[facility] [address] [place], [address] Sodium [Moles/Vol] 133 mmol/L Low 136-145 [facility] Comment on above: Performed By: #### L 100.0100, L500.2500 ####[facility] [address] [place], [address] Urea nitrogen [Mass/Vol] 14 mg/dL Normal 7-18 [facility] Comment on above: Performed By: #### L 100.0100, L500.2500 ####[facility] [address] [place], [address] CBC W/Diff, Automatedon 04-02 Absolute Lymph 1.60 X10 3/uL Normal 0.83-4.51 [facility] Comment on above: Performed By: #### L 100.0100, L500.2500 ####[facility] [address] [place], [address] Absolute Neut 6.7 X10 3/uL Normal 2.0-7.7 [facility] Comment on above: Performed By: #### L 100.0100, L500.2500 ####[facility] [address] [place], [address] Basophils/100 WBC (Bld) 0.1 % Normal 0-1 [facility] Comment on above: Performed By: #### L 100.0100, L500.2500 ####[facility] [address] [place], [address] Eosinophils/100 WBC (Bld) 0.3 % Normal 0-5 [facility] Comment on above: Performed By: #### L 100.0100, L500.2500 ####[facility] [address] [place], [address] Erythrocyte distribution width (RBC) [Ratio] 14.0 % Normal 11.6-14.6 [facility] Comment on above: Performed By: #### L 100.0100, L500.2500 ####[facility] [address] [place], [address] Hematocrit (Bld) [Volume fraction] 27.6 % Low 40-54 [facility] Comment on above: Performed By: #### L 100.0100, L500.2500 ####[facility] [address] [place], [address] Hemoglobin (Bld) [Mass/Vol] 8.6 g/dL Low 13.0-16.5 [facility] Comment on above: Performed By: #### L 100.0100, L500.2500 ####[facility] [address] [place], [address] IG% 0.500 Normal 0.0-0.9 [facility] Comment on above: Result Comment: IG% - Immature Granulocytes (promyelocytes, myelocytes andmetamyelocytes) > 1% indicates that a LEFT SHIFT is Present. Performed By: #### L 100.0100, L500.2500 ####[facility] [address] [place], [address] Lymphocytes/100 WBC (Bld) 17.1 % Low 19-41 [facility] Comment on above: Performed By: #### L 100.0100, L500.2500 ####[facility] [address] [place], [address] MCH (RBC) [Entitic mass] 26.2 pg Low 27.0-32.0 [facility] Comment on above: Performed By: #### L 100.0100, L500.2500 ####[facility] [address] [place], [address] MCHC (RBC) [Mass/Vol] 31.2 g/dL Low 32-36 [facility] Comment on above: Performed By: #### L 100.0100, L500.2500 ####[facility] [address] [place], [address] MCV (RBC) [Entitic vol] 84.1 fL Normal 80-94 [facility] Comment on above: Performed By: #### L 100.0100, L500.2500 ####[facility] [address] [place], [address] Monocytes/100 WBC (Bld) 10.0 % Normal 0-10 [facility] Comment on above: Performed By: #### L 100.0100, L500.2500 ####[facility] [address] [place], [address] Neutrophils/100 WBC (Bld) 72.0 % High 47-70 [facility] Comment on above: Performed By: #### L 100.0100, L500.2500 ####[facility] [address] [place], [address] Nucleated RBC (Bld) [#/Vol] 0 10*3/uL Normal 0-5 [facility] Comment on above: Performed By: #### L 100.0100, L500.2500 ####[facility] [address] [place], [address] Platelet mean volume (Bld) [Entitic vol] 9.8 fL Normal 6.2-12.0 [facility] Comment on above: Performed By: #### L 100.0100, L500.2500 ####[facility] [address] [place], [address] Platelets (Bld) [#/Vol] 345 10*3/uL Normal 150-450 [facility] Comment on above: Performed By: #### L 100.0100, L500.2500 ####[facility] [address] [place], [address] RBC (Bld) [#/Vol] 3.28 10*6/uL Low 4.6-6.2 [facility] Comment on above: Performed By: #### L 100.0100, L500.2500 ####[facility] [address] [place], [address] RDW SD 42.7 fl Normal 35.1-43.9 [facility] Comment on above: Performed By: #### L 100.0100, L500.2500 ####[facility] [address] [place], [address] WBC (Bld) [#/Vol] 9.4 10*3/uL Normal 4.4-11.0 [facility] Comment on above: Performed By: #### L 100.0100, L500.2500 ####[facility] [address] [place], [address] Basic Metabolic Profile (BMP )on 04-28-2024 BUN/CRE 13.7 RATIO Normal 10-20 [facility] Comment on above: Performed By: #### L 100.0500, L500.2500 ####[facility] [address] [place], [address] CA,Total 8.2 mg/dL Low 8.5-10.1 [facility] Comment on above: Performed By: #### L 100.0500, L500.2500 ####[facility] [address] [place], [address] Chloride [Moles/Vol] 101 mmol/L Normal 98-107 [facility] Comment on above: Performed By: #### L 100.0500, L500.2500 ####[facility] [address] [place], [address] CO2 [Moles/Vol] 26.0 mmol/L Normal 21.0-32.0 [facility] Comment on above: Performed By: #### L 100.0500, L500.2500 ####[facility] [address] [place], [address] Creatinine [Mass/Vol] 1.31 mg/dL High 0.70-1.30 [facility] Comment on above: Result Comment: The validity of the calculated GFR GFRAA in patients over70 years has not been determined. Clinical correlation isessential. Performed By: #### L 100.0500, L500.2500 ####[facility] [address] [place], [address] ECRCL 42.05 ml/min Normal [facility] Comment on above: Performed By: #### L 100.0500, L500.2500 ####[facility] [address] [place], [address] EST GFR - AA 68 mL/min Normal >60 [facility] Comment on above: Result Comment: Afri can Ethiopian GFR Calc Performed By: #### L 100.0500, L500.2500 ####[facility] [address] [place], [address] GAP 4 Low 5-15 [facility] Comment on above: Performed By: #### L 100.0500, L500.2500 ####[facility] [address] [place], [address] GFR/1.73 sq M.predicted among non-blacks MDRD (S/P/Bld) [Vol rate/Area] 56 mL/min/{1.73_m2} Low >60 [facility] Comment on above: Result Comment: Non- GFR Calc Performed By: #### L 100.0500, L500.2500 ####[facility] [address] [place], [address] Glucose [Mass/Vol] 130 mg/dL High 74-106 [facility] Comment on above: Result Comment: Fast ing Glucose result greater than or equal to 126 mg/dLsuggests DIABETES MELLITUS per A.D.A. criteria. Performed By: #### L 100.0500, L500.2500 ####[facility] [address] [place], [address] Potassium [Moles/Vol] 4.4 mmol/L Normal 3.5-5.1 [facility] Comment on above: Performed By: #### L 100.0500, L500.2500 ####[facility] [address] [place], [address] Sodium [Moles/Vol] 131 mmol/L Low 136-145 [facility] Comment on above: Performed By: #### L 100.0500, L500.2500 ####[facility] [address] [place], [address] Urea nitrogen [Mass/Vol] 18 mg/dL Normal 7-18 [facility] Comment on above: Performed By: #### L 100.0500, L500.2500 ####[facility] [address] [place], [address] CBC-Complete Blood Cnt No Di ffon 04-28-2024 Erythrocyte distribution width (RBC) [Ratio] 14.0 % Normal 11.6-14.6 [facility] Comment on above: Performed By: #### L 100.0500, L500.2500 ####[facility] [address] [place], [address] Hematocrit (Bld) [Volume fraction] 26.3 % Low 40-54 [facility] Comment on above: Performed By: #### L 100.0500, L500.2500 ####[facility] [address] [place], [address] Hemoglobin (Bld) [Mass/Vol] 8.1 g/dL Low 13.0-16.5 [facility] Comment on above: Performed By: #### L 100.0500, L500.2500 ####[facility] [address] [place], [address] MCH (RBC) [Entitic mass] 26.1 pg Low 27.0-32.0 [facility] Comment on above: Performed By: #### L 100.0500, L500.2500 ####[facility] [address] [place], [address] MCHC (RBC) [Mass/Vol] 30.8 g/dL Low 32-36 [facility] Comment on above: Performed By: #### L 100.0500, L500.2500 ####[facility] [address] [place], [address] MCV (RBC) [Entitic vol] 84.8 fL Normal 80-94 [facility] Comment on above: Performed By: #### L 100.0500, L500.2500 ####[facility] [address] [place], [address] Platelet mean volume (Bld) [Entitic vol] 10.2 fL Normal 6.2-12.0 [facility] Comment on above: Performed By: #### L 100.0500, L500.2500 ####[facility] [address] [place], [address] Platelets (Bld) [#/Vol] 296 10*3/uL Normal 150-450 [facility] Comment on above: Performed By: #### L 100.0500, L500.2500 ####[facility] [address] [place], [address] RBC (Bld) [#/Vol] 3.10 10*6/uL Low 4.6-6.2 [facility] Comment on above: Performed By: #### L 100.0500, L500.2500 ####[facility] [address] [place], [address] RDW SD 43.3 fl Normal 35.1-43.9 [facility] Comment on above: Performed By: #### L 100.0500, L500.2500 ####[facility] [address] [place], [address] WBC (Bld) [#/Vol] 9.1 10*3/uL Normal 4.4-11.0 [facility] Comment on above: Performed By: #### L 100.0500, L500.2500 ####[facility] [address] [place], [address] Bedside Glucoseon 04-27-2024 FINGERSTICK GLU 113 mg/dL High 74-106 [facility] Comment on above: Result Comment: STELLA FLORES OF PATIENT CARE PER NURSING PROTOCOL Performed By: #### L 501.080 ####[facility] [address] [place], [address] CBC-Complete Blood Cnt No Marah riveraon 04-27-2024 Erythrocyte distribution width (RBC) [Ratio] 13.7 % Normal 11.6-14.6 [facility] Comment on above: Performed By: #### L 100.0500 ####[facility] [address] [place], [address] Hematocrit (Bld) [Volume fraction] 30.5 % Low 40-54 [facility] Comment on above: Performed By: #### L 100.0500 ####[facility] [address] [place], [address] Hemoglobin (Bld) [Mass/Vol] 9.4 g/dL Low 13.0-16.5 [facility] Comment on above: Performed By: #### L 100.0500 ####[facility] [address] [place], [address] MCH (RBC) [Entitic mass] 26.0 pg Low 27.0-32.0 [facility] Comment on above: Performed By: #### L 100.0500 ####[facility] [address] [place], [address] MCHC (RBC) [Mass/Vol] 30.8 g/dL Low 32-36 [facility] Comment on above: Performed By: #### L 100.0500 ####[facility] [address] [place], [address] MCV (RBC) [Entitic vol] 84.3 fL Normal 80-94 [facility] Comment on above: Performed By: #### L 100.0500 ####[facility] [address] [place], [address] Platelet mean volume (Bld) [Entitic vol] 9.7 fL Normal 6.2-12.0 [facility] Comment on above: Performed By: #### L 100.0500 ####[facility] [address] [place], [address] Platelets (Bld) [#/Vol] 346 10*3/uL Normal 150-450 [facility] Comment on above: Performed By: #### L 100.0500 ####[facility] [address] [place], [address] RBC (Bld) [#/Vol] 3.62 10*6/uL Low 4.6-6.2 [facility] Comment on above: Performed By: #### L 100.0500 ####[facility] [address] [place], [address] RDW SD 42.4 fl Normal 35.1-43.9 [facility] Comment on above: Performed By: #### L 100.0500 ####[facility] [address] [place], [address] WBC (Bld) [#/Vol] 7.1 10*3/uL Normal 4.4-11.0 [facility] Comment on above: Performed By: #### L 100.0500 ####[facility] [address] [place], [address] MLH-1 (add)on 04-27-2024 MLH-1 (add) Normal [facility] Comment on above: Performed By: #### P MLH1. ####[facility] [address] [place], [address] MR/POSTOP.ANEon 04-27-2024 MR/POSTOP.ANE Normal [facility] MR/[id number] 04-27-2024 MR/POSTOPAN2 Normal [facility] Magnesiumon 04-27-2024 Magnesium [Mass/Vol] 1.9 mg/dL Normal 1.6-2.6 [facility] Comment on above: Performed By: #### L 501.5200 ####[facility] [address] [place], [address] Operative Reporton Operative Report Normal [facility] Surgery Specimen Level VIon 04-27-2024 Surgery Specimen Level Normal [facility] Comment on above: Performed By: #### P SUVI ####[facility] [address] [place], [address] Cardiology Visit Reporton Cardiology Visit Report Normal [facility] Surgery Visit Reporton 04-20 Surgery Visit Report Normal [facility] CBC W/Diff, Automatedon 04-01 Absolute Lymph 1.42 X10 3/uL Normal 0.83-4.51 [facility] Comment on above: Performed By: #### L 100.0100 ####[facility] [address] [place], [address] Absolute Neut 3.1 X10 3/uL Normal 2.0-7.7 [facility] Comment on above: Performed By: #### L 100.0100 ####[facility] [address] [place], [address] Basophils/100 WBC (Bld) 0.5 % Normal 0-1 [facility] Comment on above: Performed By: #### L 100.0100 ####[facility] [address] [place], [address] Eosinophils/100 WBC (Bld) 5.9 % High 0-5 [facility] Comment on above: Performed By: #### L 100.0100 ####[facility] [address] [place], [address] Erythrocyte distribution width (RBC) [Ratio] 13.4 % Normal 11.6-14.6 [facility] Comment on above: Performed By: #### L 100.0100 ####[facility] [address] [place], [address] Hematocrit (Bld) [Volume fraction] 30.5 % Low 40-54 [facility] Comment on above: Performed By: #### L 100.0100 ####[facility] [address] [place], [address] Hemoglobin (Bld) [Mass/Vol] 9.3 g/dL Low 13.0-16.5 [facility] Comment on above: Performed By: #### L 100.0100 ####[facility] [address] [place], [address] IG% 0.200 Normal 0.0-0.9 [facility] Comment on above: Result Comment: IG% - Immature Granulocytes (promyelocytes, myelocytes andmetamyelocytes) > 1% indicates that a LEFT SHIFT is Present. Performed By: #### L 100.0100 ####[facility] [address] [place], [address] Lymphocytes/100 WBC (Bld) 25.6 % Normal 19-41 [facility] Comment on above: Performed By: #### L 100.0100 ####[facility] [address] [place], [address] MCH (RBC) [Entitic mass] 26.2 pg Low 27.0-32.0 [facility] Comment on above: Performed By: #### L 100.0100 ####[facility] [address] [place], [address] MCHC (RBC) [Mass/Vol] 30.5 g/dL Low 32-36 [facility] Comment on above: Performed By: #### L 100.0100 ####[facility] [address] [place], [address] MCV (RBC) [Entitic vol] 85.9 fL Normal 80-94 [facility] Comment on above: Performed By: #### L 100.0100 ####[facility] [address] [place], [address] Monocytes/100 WBC (Bld) 12.1 % High 0-10 [facility] Comment on above: Performed By: #### L 100.0100 ####[facility] [address] [place], [address] Neutrophils/100 WBC (Bld) 55.7 % Normal 47-70 [facility] Comment on above: Performed By: #### L 100.0100 ####[facility] [address] [place], [address] Nucleated RBC (Bld) [#/Vol] 0 10*3/uL Normal 0-5 [facility] Comment on above: Performed By: #### L 100.0100 ####[facility] [address] [place], [address] Platelet mean volume (Bld) [Entitic vol] 9.3 fL Normal 6.2-12.0 [facility] Comment on above: Performed By: #### L 100.0100 ####[facility] [address] [place], [address] Platelets (Bld) [#/Vol] 303 10*3/uL Normal 150-450 [facility] Comment on above: Performed By: #### L 100.0100 ####[facility] [address] [place], [address] RBC (Bld) [#/Vol] 3.55 10*6/uL Low 4.6-6.2 [facility] Comment on above: Performed By: #### L 100.0100 ####[facility] [address] [place], [address] RDW SD 42.2 fl Normal 35.1-43.9 [facility] Comment on above: Performed By: #### L 100.0100 ####[facility] [address] [place], [address] WBC (Bld) [#/Vol] 5.6 10*3/uL Normal 4.4-11.0 [facility] Comment on above: Performed By: #### L 100.0100 ####[facility] [address] [place], [address] Basic Metabolic Profile (BMP )on 04-14-2024 BUN/CRE 13.0 RATIO Normal 10-20 [facility] Comment on above: Performed By: #### L 100.0100, L500.2500 ####[facility] [address] [place], [address] CA,Total 8.1 mg/dL Low 8.5-10.1 [facility] Comment on above: Performed By: #### L 100.0100, L500.2500 ####[facility] [address] [place], [address] Chloride [Moles/Vol] 108 mmol/L High 98-107 [facility] Comment on above: Performed By: #### L 100.0100, L500.2500 ####[facility] [address] [place], [address] CO2 [Moles/Vol] 23.0 mmol/L Normal 21.0-32.0 [facility] Comment on above: Performed By: #### L 100.0100, L500.2500 ####[facility] [address] [place], [address] Creatinine [Mass/Vol] 1.23 mg/dL Normal 0.70-1.30 [facility] Comment on above: Result Comment: The validity of the calculated GFR GFRAA in patients over70 years has not been determined. Clinical correlation isessential. Performed By: #### L 100.0100, L500.2500 ####[facility] [address] [place], [address] ECRCL 44.78 ml/min Normal [facility] Comment on above: Performed By: #### L 100.0100, L500.2500 ####[facility] [address] [place], [address] EST GFR - AA 73 mL/min Normal >60 [facility] Comment on above: Result Comment: Afri can Ethiopian GFR Calc Performed By: #### L 100.0100, L500.2500 ####[facility] [address] [place], [address] GAP 7 Normal 5-15 [facility] Comment on above: Performed By: #### L 100.0100, L500.2500 ####[facility] [address] [place], [address] GFR/1.73 sq M.predicted among non-blacks MDRD (S/P/Bld) [Vol rate/Area] 60 mL/min/{1.73_m2} Normal >60 [facility] Comment on above: Result Comment: Non- GFR Calc Performed By: #### L 100.0100, L500.2500 ####[facility] [address] [place], [address] Glucose [Mass/Vol] 105 mg/dL Normal 74-106 [facility] Comment on above: Result Comment: Fast ing Glucose result from 100 to 125 mg/dLsuggests IMPAIRED HOMEOSTASIS per A.D.A. criteria. Performed By: #### L 100.0100, L500.2500 ####[facility] [address] [place], [address] Potassium [Moles/Vol] 3.4 mmol/L Low 3.5-5.1 [facility] Comment on above: Performed By: #### L 100.0100, L500.2500 ####[facility] [address] [place], [address] Sodium [Moles/Vol] 138 mmol/L Normal 136-145 [facility] Comment on above: Performed By: #### L 100.0100, L500.2500 ####[facility] [address] [place], [address] Urea nitrogen [Mass/Vol] 16 mg/dL Normal 7-18 [facility] Comment on above: Performed By: #### L 100.0100, L500.2500 ####[facility] [address] [place], [address] CBC W/Diff, Automatedon 04-01 Absolute Lymph 1.52 X10 3/uL Normal 0.83-4.51 [facility] Comment on above: Performed By: #### L 100.0100, L500.2500 ####[facility] [address] [place], [address] Absolute Neut 4.8 X10 3/uL Normal 2.0-7.7 [facility] Comment on above: Performed By: #### L 100.0100, L500.2500 ####[facility] [address] [place], [address] Basophils/100 WBC (Bld) 0.1 % Normal 0-1 [facility] Comment on above: Performed By: #### L 100.0100, L500.2500 ####[facility] [address] [place], [address] Eosinophils/100 WBC (Bld) 3.4 % Normal 0-5 [facility] Comment on above: Performed By: #### L 100.0100, L500.2500 ####[facility] [address] [place], [address] Erythrocyte distribution width (RBC) [Ratio] 13.4 % Normal 11.6-14.6 [facility] Comment on above: Performed By: #### L 100.0100, L500.2500 ####[facility] [address] [place], [address] Hematocrit (Bld) [Volume fraction] 30.9 % Low 40-54 [facility] Comment on above: Performed By: #### L 100.0100, L500.2500 ####[facility] [address] [place], [address] Hemoglobin (Bld) [Mass/Vol] 9.5 g/dL Low 13.0-16.5 [facility] Comment on above: Performed By: #### L 100.0100, L500.2500 ####[facility] [address] [place], [address] IG% 0.300 Normal 0.0-0.9 [facility] Comment on above: Result Comment: IG% - Immature Granulocytes (promyelocytes, myelocytes andmetamyelocytes) > 1% indicates that a LEFT SHIFT is Present. Performed By: #### L 100.0100, L500.2500 ####[facility] [address] [place], [address] Lymphocytes/100 WBC (Bld) 20.1 % Normal 19-41 [facility] Comment on above: Performed By: #### L 100.0100, L500.2500 ####[facility] [address] [place], [address] MCH (RBC) [Entitic mass] 26.2 pg Low 27.0-32.0 [facility] Comment on above: Performed By: #### L 100.0100, L500.2500 ####[facility] [address] [place], [address] MCHC (RBC) [Mass/Vol] 30.7 g/dL Low 32-36 [facility] Comment on above: Performed By: #### L 100.0100, L500.2500 ####[facility] [address] [place], [address] MCV (RBC) [Entitic vol] 85.4 fL Normal 80-94 [facility] Comment on above: Performed By: #### L 100.0100, L500.2500 ####[facility] [address] [place], [address] Monocytes/100 WBC (Bld) 12.2 % High 0-10 [facility] Comment on above: Performed By: #### L 100.0100, L500.2500 ####[facility] [address] [place], [address] Neutrophils/100 WBC (Bld) 63.9 % Normal 47-70 [facility] Comment on above: Performed By: #### L 100.0100, L500.2500 ####[facility] [address] [place], [address] Nucleated RBC (Bld) [#/Vol] 0 10*3/uL Normal 0-5 [facility] Comment on above: Performed By: #### L 100.0100, L500.2500 ####[facility] [address] [place], [address] Platelet mean volume (Bld) [Entitic vol] 9.4 fL Normal 6.2-12.0 [facility] Comment on above: Performed By: #### L 100.0100, L500.2500 ####[facility] [address] [place], [address] Platelets (Bld) [#/Vol] 321 10*3/uL Normal 150-450 [facility] Comment on above: Performed By: #### L 100.0100, L500.2500 ####[facility] [address] [place], [address] RBC (Bld) [#/Vol] 3.62 10*6/uL Low 4.6-6.2 [facility] Comment on above: Performed By: #### L 100.0100, L500.2500 ####[facility] [address] [place], [address] RDW SD 42.0 fl Normal 35.1-43.9 [facility] Comment on above: Performed By: #### L 100.0100, L500.2500 ####[facility] [address] [place], [address] WBC (Bld) [#/Vol] 7.6 10*3/uL Normal 4.4-11.0 [facility] Comment on above: Performed By: #### L 100.0100, L500.2500 ####[facility] [address] [place], [address] MR/PN.GIon 04-14-2024 MR/PN.GI Normal [facility] Basic Metabolic Profile (BMP )on 04-13-2024 BUN/CRE 12.6 RATIO Normal 10-20 [facility] Comment on above: Performed By: #### L 100.0100, L500.2500 ####[facility] [address] [place], [address] CA,Total 8.9 mg/dL Normal 8.5-10.1 [facility] Comment on above: Performed By: #### L 100.0100, L500.2500 ####[facility] [address] [place], [address] Chloride [Moles/Vol] 106 mmol/L Normal 98-107 [facility] Comment on above: Performed By: #### L 100.0100, L500.2500 ####[facility] [address] [place], [address] CO2 [Moles/Vol] 24.0 mmol/L Normal 21.0-32.0 [facility] Comment on above: Performed By: #### L 100.0100, L500.2500 ####[facility] [address] [place], [address] Creatinine [Mass/Vol] 1.19 mg/dL Normal 0.70-1.30 [facility] Comment on above: Result Comment: The validity of the calculated GFR GFRAA in patients over70 years has not been determined. Clinical correlation isessential. Performed By: #### L 100.0100, L500.2500 ####[facility] [address] [place], [address] ECRCL 46.29 ml/min Normal [facility] Comment on above: Performed By: #### L 100.0100, L500.2500 ####[facility] [address] [place], [address] EST GFR - AA 76 mL/min Normal >60 [facility] Comment on above: Result Comment: Afri can Ethiopian GFR Calc Performed By: #### L 100.0100, L500.2500 ####[facility] [address] [place], [address] GAP 8 Normal 5-15 [facility] Comment on above: Performed By: #### L 100.0100, L500.2500 ####[facility] [address] [place], [address] GFR/1.73 sq M.predicted among non-blacks MDRD (S/P/Bld) [Vol rate/Area] 63 mL/min/{1.73_m2} Normal >60 [facility] Comment on above: Result Comment: Non- GFR Calc Performed By: #### L 100.0100, L500.2500 ####[facility] [address] [place], [address] Glucose [Mass/Vol] 99 mg/dL Normal 74-106 [facility] Comment on above: Performed By: #### L 100.0100, L500.2500 ####[facility] [address] [place], [address] Potassium [Moles/Vol] 3.6 mmol/L Normal 3.5-5.1 [facility] Comment on above: Performed By: #### L 100.0100, L500.2500 ####[facility] [address] [place], [address] Sodium [Moles/Vol] 138 mmol/L Normal 136-145 [facility] Comment on above: Performed By: #### L 100.0100, L500.2500 ####[facility] [address] [place], [address] Urea nitrogen [Mass/Vol] 15 mg/dL Normal 7-18 [facility] Comment on above: Performed By: #### L 100.0100, L500.2500 ####[facility] [address] [place], [address] CBC W/Diff, Automatedon 04-01-2023 Absolute Lymph 1.30 X10 3/uL Normal 0.83-4.51 [facility] Comment on above: Performed By: #### L 100.0100, L500.2500 ####[facility] [address] [place], [address] Absolute Neut 3.5 X10 3/uL Normal 2.0-7.7 [facility] Comment on above: Performed By: #### L 100.0100, L500.2500 ####[facility] [address] [place], [address] Basophils/100 WBC (Bld) 0.2 % Normal 0-1 [facility] Comment on above: Performed By: #### L 100.0100, L500.2500 ####[facility] [address] [place], [address] Eosinophils/100 WBC (Bld) 2.8 % Normal 0-5 [facility] Comment on above: Performed By: #### L 100.0100, L500.2500 ####[facility] [address] [place], [address] Erythrocyte distribution width (RBC) [Ratio] 13.4 % Normal 11.6-14.6 [facility] Comment on above: Performed By: #### L 100.0100, L500.2500 ####[facility] [address] [place], [address] Hematocrit (Bld) [Volume fraction] 34.1 % Low 40-54 [facility] Comment on above: Performed By: #### L 100.0100, L500.2500 ####[facility] [address] [place], [address] Hemoglobin (Bld) [Mass/Vol] 10.8 g/dL Low 13.0-16.5 [facility] Comment on above: Performed By: #### L 100.0100, L500.2500 ####[facility] [address] [place], [address] IG% 0.300 Normal 0.0-0.9 [facility] Comment on above: Result Comment: IG% - Immature Granulocytes (promyelocytes, myelocytes andmetamyelocytes) > 1% indicates that a LEFT SHIFT is Present. Performed By: #### L 100.0100, L500.2500 ####[facility] [address] [place], [address] Lymphocytes/100 WBC (Bld) 22.6 % Normal 19-41 [facility] Comment on above: Performed By: #### L 100.0100, L500.2500 ####[facility] [address] [place], [address] MCH (RBC) [Entitic mass] 26.7 pg Low 27.0-32.0 [facility] Comment on above: Performed By: #### L 100.0100, L500.2500 ####[facility] [address] [place], [address] MCHC (RBC) [Mass/Vol] 31.7 g/dL Low 32-36 [facility] Comment on above: Performed By: #### L 100.0100, L500.2500 ####[facility] [address] [place], [address] MCV (RBC) [Entitic vol] 84.4 fL Normal 80-94 [facility] Comment on above: Performed By: #### L 100.0100, L500.2500 ####[facility] [address] [place], [address] Monocytes/100 WBC (Bld) 12.5 % High 0-10 [facility] Comment on above: Performed By: #### L 100.0100, L500.2500 ####[facility] [address] [place], [address] Neutrophils/100 WBC (Bld) 61.6 % Normal 47-70 [facility] Comment on above: Performed By: #### L 100.0100, L500.2500 ####[facility] [address] [place], [address] Nucleated RBC (Bld) [#/Vol] 0 10*3/uL Normal 0-5 [facility] Comment on above: Performed By: #### L 100.0100, L500.2500 ####[facility] [address] [place], [address] Platelet mean volume (Bld) [Entitic vol] 9.4 fL Normal 6.2-12.0 [facility] Comment on above: Performed By: #### L 100.0100, L500.2500 ####[facility] [address] [place], [address] Platelets (Bld) [#/Vol] 343 10*3/uL Normal 150-450 [facility] Comment on above: Performed By: #### L 100.0100, L500.2500 ####[facility] [address] [place], [address] RBC (Bld) [#/Vol] 4.04 10*6/uL Low 4.6-6.2 [facility] Comment on above: Performed By: #### L 100.0100, L500.2500 ####[facility] [address] [place], [address] RDW SD 41.8 fl Normal 35.1-43.9 [facility] Comment on above: Performed By: #### L 100.0100, L500.2500 ####[facility] [address] [place], [address] WBC (Bld) [#/Vol] 5.8 10*3/uL Normal 4.4-11.0 [facility] Comment on above: Performed By: #### L 100.0100, L500.2500 ####[facility] [address] [place], [address] Carcinoembryonic Antigenon 0 04-13-2024 CEA 2.7 ng/mL Normal 0.0-4.7 [facility] Comment on above: Result Comment: Nons mokers <3.9 Smokers <5.6[employer] Electrochemiluminescence Immunoassay(ECLIA)Values obtained with different assay methods or kitscannot be used interchangeably. Results cannot beinterpreted as absolute evidence of the presence orabsence of malignant disease.Performed at: [address] [id number] Director: Jian Paredes PhD, Phone: [phone] Performed By: #### L 8241.1880 ####[facility] [address] [place], [address] Colonoscopy Reporton 024 Colonoscopy Report Normal [facility] HER-2-DIONNA (initial)on 2023 HER-2-DIONNA (initial) Normal [facility] Comment on above: Performed By: #### P HER2 ####[facility] [address] [place], [address] MR/POSTOP.ANEon 04-13-2024 MR/POSTOP.ANE Normal [facility] MR/QVOOKWUI0wg 04-13-2024 MR/POSTOPAN2 Normal [facility] Partial Thromboplast Timeon 04-13-2024 aPTT Coag (Bld) [Time] 29.4 s Normal 24.1-36.2 [facility] Comment on above: Performed By: #### L 300.3900, L300.4310 ####[facility] [address] [place], [address] Prothrombin Time w/INRon INR Coag (PPP) [Relative time] 1.1 {INR} Normal [facility] Comment on above: Performed By: #### L 300.3900, L300.4310 ####[facility] [address] [place], [address] PT Coag (PPP) [Time] 14.6 s Normal 11.7-14.9 [facility] Comment on above: Performed By: #### L 300.3900, L300.4310 ####[facility] [address] [place], [address] Special Stain Group Ion 04-01 Special Stain Group I Normal [facility] Comment on above: Performed By: #### P SSI ####[facility] [address] [place], [address] CBC W/Diff, Automatedon 04-01 Absolute Lymph 1.44 X10 3/uL Normal 0.83-4.51 [facility] Comment on above: Performed By: #### L 501.2300, L100.0100, L500.4050, L501.9520, L501.5200 ####[facility] [address] [place], [address] Absolute Neut 3.5 X10 3/uL Normal 2.0-7.7 [facility] Comment on above: Performed By: #### L 501.2300, L100.0100, L500.4050, L501.9520, L501.5200 ####[facility] [address] [place], [address] Basophils/100 WBC (Bld) 0.4 % Normal 0-1 [facility] Comment on above: Performed By: #### L 501.2300, L100.0100, L500.4050, L501.9520, L501.5200 ####[facility] [address] [place], [address] Eosinophils/100 WBC (Bld) 1.8 % Normal 0-5 [facility] Comment on above: Performed By: #### L 501.2300, L100.0100, L500.4050, L501.9520, L501.5200 ####[facility] [address] [place], [address] Erythrocyte distribution width (RBC) [Ratio] 13.3 % Normal 11.6-14.6 [facility] Comment on above: Performed By: #### L 501.2300, L100.0100, L500.4050, L501.9520, L501.5200 ####[facility] [address] [place], [address] Hematocrit (Bld) [Volume fraction] 32.7 % Low 40-54 [facility] Comment on above: Performed By: #### L 501.2300, L100.0100, L500.4050, L501.9520, L501.5200 ####[facility] [address] [place], [address] Hemoglobin (Bld) [Mass/Vol] 10.5 g/dL Low 13.0-16.5 [facility] Comment on above: Performed By: #### L 501.2300, L100.0100, L500.4050, L501.9520, L501.5200 ####[facility] [address] [place], [address] IG% 0.500 Normal 0.0-0.9 [facility] Comment on above: Result Comment: IG% - Immature Granulocytes (promyelocytes, myelocytes andmetamyelocytes) > 1% indicates that a LEFT SHIFT is Present. Performed By: #### L 501.2300, L100.0100, L500.4050, L501.9520, L501.5200 ####[facility] [address] [place], [address] Lymphocytes/100 WBC (Bld) 25.3 % Normal 19-41 [facility] Comment on above: Performed By: #### L 501.2300, L100.0100, L500.4050, L501.9520, L501.5200 ####[facility] [address] [place], [address] MCH (RBC) [Entitic mass] 27.5 pg Normal 27.0-32.0 [facility] Comment on above: Performed By: #### L 501.2300, L100.0100, L500.4050, L501.9520, L501.5200 ####[facility] [address] [place], [address] MCHC (RBC) [Mass/Vol] 32.1 g/dL Normal 32-36 [facility] Comment on above: Performed By: #### L 501.2300, L100.0100, L500.4050, L501.9520, L501.5200 ####[facility] [address] [place], [address] MCV (RBC) [Entitic vol] 85.6 fL Normal 80-94 [facility] Comment on above: Performed By: #### L 501.2300, L100.0100, L500.4050, L501.9520, L501.5200 ####[facility] [address] [place], [address] Monocytes/100 WBC (Bld) 10.5 % High 0-10 [facility] Comment on above: Performed By: #### L 501.2300, L100.0100, L500.4050, L501.9520, L501.5200 ####[facility] [address] [place], [address] Neutrophils/100 WBC (Bld) 61.5 % Normal 47-70 [facility] Comment on above: Performed By: #### L 501.2300, L100.0100, L500.4050, L501.9520, L501.5200 ####[facility] [address] [place], [address] Nucleated RBC (Bld) [#/Vol] 0 10*3/uL Normal 0-5 [facility] Comment on above: Performed By: #### L 501.2300, L100.0100, L500.4050, L501.9520, L501.5200 ####[facility] [address] [place], [address] Platelet mean volume (Bld) [Entitic vol] 9.2 fL Normal 6.2-12.0 [facility] Comment on above: Performed By: #### L 501.2300, L100.0100, L500.4050, L501.9520, L501.5200 ####[facility] [address] [place], [address] Platelets (Bld) [#/Vol] 314 10*3/uL Normal 150-450 [facility] Comment on above: Performed By: #### L 501.2300, L100.0100, L500.4050, L501.9520, L501.5200 ####[facility] [address] [place], [address] RBC (Bld) [#/Vol] 3.82 10*6/uL Low 4.6-6.2 [facility] Comment on above: Performed By: #### L 501.2300, L100.0100, L500.4050, L501.9520, L501.5200 ####[facility] [address] [place], [address] RDW SD 41.6 fl Normal 35.1-43.9 [facility] Comment on above: Performed By: #### L 501.2300, L100.0100, L500.4050, L501.9520, L501.5200 ####[facility] [address] [place], [address] WBC (Bld) [#/Vol] 5.7 10*3/uL Normal 4.4-11.0 [facility] Comment on above: Performed By: #### L 501.2300, L100.0100, L500.4050, L501.9520, L501.5200 ####[facility] [address] [place], [address] Comprehensive Metabolic [facility] 04-12-2024 Albumin [Mass/Vol] 3.8 g/dL Normal 3.2-5.0 [facility] Comment on above: Performed By: #### L 501.2300, L100.0100, L500.4050, L501.9520, L501.5200 ####[facility] [address] [place], [address] Albumin/Globulin [Mass ratio] 1.1 {ratio} Normal 0.9-2.4 [facility] Comment on above: Performed By: #### L 501.2300, L100.0100, L500.4050, L501.9520, L501.5200 ####[facility] [address] [place], [address] ALK P 88 U/L Normal 45-117 [facility] Comment on above: Performed By: #### L 501.2300, L100.0100, L500.4050, L501.9520, L501.5200 ####[facility] [address] [place], [address] ALT [Catalytic activity/Vol] 22 U/L Normal 16-61 [facility] Comment on above: Performed By: #### L 501.2300, L100.0100, L500.4050, L501.9520, L501.5200 ####[facility] [address] [place], [address] AST [Catalytic activity/Vol] 20 U/L Normal 15-37 [facility] Comment on above: Performed By: #### L 501.2300, L100.0100, L500.4050, L501.9520, L501.5200 ####[facility] [address] [place], [address] Bilirubin [Mass/Vol] 0.90 mg/dL Normal 0.20-1.00 [facility] Comment on above: Result Comment: For patients on eltrombopag therapy, use of Dimension [place] TBIL is not recommended. Performed By: #### L 501.2300, L100.0100, L500.4050, L501.9520, L501.5200 ####[facility] [address] [place], [address] BUN/CRE 13.7 RATIO Normal 10-20 [facility] Comment on above: Performed By: #### L 501.2300, L100.0100, L500.4050, L501.9520, L501.5200 ####[facility] [address] [place], [address] CA,Total 8.9 mg/dL Normal 8.5-10.1 [facility] Comment on above: Performed By: #### L 501.2300, L100.0100, L500.4050, L501.9520, L501.5200 ####[facility] [address] [place], [address] Chloride [Moles/Vol] 104 mmol/L Normal 98-107 [facility] Comment on above: Performed By: #### L 501.2300, L100.0100, L500.4050, L501.9520, L501.5200 ####[facility] [address] [place], [address] CO2 [Moles/Vol] 29.0 mmol/L Normal 21.0-32.0 [facility] Comment on above: Performed By: #### L 501.2300, L100.0100, L500.4050, L501.9520, L501.5200 ####[facility] [address] [place], [address] Creatinine [Mass/Vol] 1.17 mg/dL Normal 0.70-1.30 [facility] Comment on above: Result Comment: The validity of the calculated GFR GFRAA in patients over70 years has not been determined. Clinical correlation isessential. Performed By: #### L 501.2300, L100.0100, L500.4050, L501.9520, L501.5200 ####[facility] [address] [place], [address] ECRCL 48.72 ml/min Normal [facility] Comment on above: Performed By: #### L 501.2300, L100.0100, L500.4050, L501.9520, L501.5200 ####[facility] [address] [place], [address] EST GFR - AA 77 mL/min Normal >60 [facility] Comment on above: Result Comment: Afri can Ethiopian GFR Calc Performed By: #### L 501.2300, L100.0100, L500.4050, L501.9520, L501.5200 ####[facility] [address] [place], [address] GAP 4 Low 5-15 [facility] Comment on above: Performed By: #### L 501.2300, L100.0100, L500.4050, L501.9520, L501.5200 ####[facility] [address] [place], [address] GFR/1.73 sq M.predicted among non-blacks MDRD (S/P/Bld) [Vol rate/Area] 64 mL/min/{1.73_m2} Normal >60 [facility] Comment on above: Result Comment: Non- GFR Calc Performed By: #### L 501.2300, L100.0100, L500.4050, L501.9520, L501.5200 ####[facility] [address] [place], [address] Globulin (S) [Mass/Vol] 3.5 g/dL Normal 2.2-4.2 [facility] Comment on above: Performed By: #### L 501.2300, L100.0100, L500.4050, L501.9520, L501.5200 ####[facility] [address] [place], [address] Glucose [Mass/Vol] 98 mg/dL Normal 74-106 [facility] Comment on above: Performed By: #### L 501.2300, L100.0100, L500.4050, L501.9520, L501.5200 ####[facility] [address] [place], [address] Potassium [Moles/Vol] 3.5 mmol/L Normal 3.5-5.1 [facility] Comment on above: Performed By: #### L 501.2300, L100.0100, L500.4050, L501.9520, L501.5200 ####[facility] [address] [place], [address] Sodium [Moles/Vol] 137 mmol/L Normal 136-145 [facility] Comment on above: Performed By: #### L 501.2300, L100.0100, L500.4050, L501.9520, L501.5200 ####[facility] [address] [place], [address] T PROT 7.3 g/dL Normal 6.4-8.2 [facility] Comment on above: Performed By: #### L 501.2300, L100.0100, L500.4050, L501.9520, L501.5200 ####[facility] [address] [place], [address] Urea nitrogen [Mass/Vol] 16 mg/dL Normal 7-18 [facility] Comment on above: Performed By: #### L 501.2300, L100.0100, L500.4050, L501.9520, L501.5200 ####[facility] [address] [place], [address] Consultation - Surgicalon Consultation - Surgical Normal [facility] Ferritinon 04-12-2024 Ferritin [Mass/Vol] 17 ng/mL Low 26-388 [facility] Comment on above: Performed By: #### L 503.6039, L503.6550 ####[facility] [address] [place], [address] Iron+Iron Binding Capacityon 04-12-2024 Iron [Mass/Vol] 16 ug/dL Low 65-175 [facility] Comment on above: Performed By: #### L 503.6030, L503.6550 ####[facility] [address] [place], [address] IRON SATURATION 4.1 Low 15.0-55.0 [facility] Comment on above: Performed By: #### L 503.6030, L503.6550 ####[facility] [address] [place], [address] TIBC 387 ug/dL Normal 250-450 [facility] Comment on above: Performed By: #### L 503.6030, L503.6550 ####[facility] [address] [place], [address] MR/CON.PCM.GIon 04-12-2024 MR/CON.PCM.GI Normal [facility] Magnesiumon 04-12-2024 Magnesium [Mass/Vol] 2.1 mg/dL Normal 1.6-2.6 [facility] Comment on above: Performed By: #### L 501.2300, L100.0100, L500.4050, L501.9520, L501.5200 ####[facility] [address] [place], [address] Partial Thromboplast Timeon 04-12-2024 aPTT Coag (Bld) [Time] 27.7 s Normal 24.1-36.2 [facility] Comment on above: Performed By: #### L 300.4310, L300.3900 ####[facility] [address] [place], [address] Phosphoruson 04-12-2024 Phosphate [Mass/Vol] 3.5 mg/dL Normal 2.5-4.9 [facility] Comment on above: Performed By: #### L 501.2300, L100.0100, L500.4050, L501.9520, L501.5200 ####[facility] [address] [place], [address] Prothrombin Time w/INRon INR Coag (PPP) [Relative time] 1.0 {INR} Normal [facility] Comment on above: Performed By: #### L 300.4310, L300.3900 ####[facility] [address] [place], [address] PT Coag (PPP) [Time] 13.1 s Normal 11.7-14.9 [facility] Comment on above: Performed By: #### L 300.4310, L300.3900 ####[facility] [address] [place], [address] Thyroid Stim Hormone (TSH)on 04-12-2024 TSH 3.360 uIU/mL Normal 0.358-3.740 [facility] Comment on above: Performed By: #### L 501.2300, L100.0100, L500.4050, L501.9520, L501.5200 ####[facility] [address] [place], [address] 12 Lead EKGon 04-11-2024 12 Lead EKG Normal [facility] BNP,B-Type NATRIURETIC PEPTI Иван 04-11-2024 Natriuretic peptide B (Bld) [Mass/Vol] 371.0 pg/mL High 0-100 [facility] Comment on above: Performed By: #### L 501.4020, L500.4050, L300.8000, L503.6620, L100.0100 ####[facility] [address] [place], [address] BRCon 04-11-2024 RC Normal [facility] Comment on above: Result Comment: [id number] OP RC TRANSFUSED 04/12/24 [id number] OP RC TRANSFUSED 04/11/24 2311 Performed By: #### B RC ####[facility] [address] [place], [address] Basic Metabolic Profile (BMP )on 04-11-2024 BUN/CRE 13.8 RATIO Normal 10-20 [facility] Comment on above: Order Comment: 'TROP ' Serial specimen #1, #2 or #3: 1 Performed By: #### L 300.3900, L500.2500, L501.4020, L100.0100, L500.3400, L300.4310, BTS, L501.2450 ####[facility] [address] [place], [address] CA,Total 8.7 mg/dL Normal 8.5-10.1 [facility] Comment on above: Order Comment: 'TROP ' Serial specimen #1, #2 or #3: 1 Performed By: #### L 300.3900, L500.2500, L501.4020, L100.0100, L500.3400, L300.4310, BTS, L501.2450 ####[facility] [address] [place], [address] Chloride [Moles/Vol] 105 mmol/L Normal 98-107 [facility] Comment on above: Order Comment: 'TROP ' Serial specimen #1, #2 or #3: 1 Performed By: #### L 300.3900, L500.2500, L501.4020, L100.0100, L500.3400, L300.4310, BTS, L501.2450 ####[facility] [address] [place], [address] CO2 [Moles/Vol] 26.0 mmol/L Normal 21.0-32.0 [facility] Comment on above: Order Comment: 'TROP ' Serial specimen #1, #2 or #3: 1 Performed By: #### L 300.3900, L500.2500, L501.4020, L100.0100, L500.3400, L300.4310, BTS, L501.2450 ####[facility] [address] [place], [address] Creatinine [Mass/Vol] 1.30 mg/dL Normal 0.70-1.30 [facility] Comment on above: Order Comment: 'TROP ' Serial specimen #1, #2 or #3: 1 Result Comment: The validity of the calculated GFR GFRAA in patients over70 years has not been determined. Clinical correlation isessential. Performed By: #### L 300.3900, L500.2500, L501.4020, L100.0100, L500.3400, L300.4310, BTS, L501.2450 ####[facility] [address] [place], [address] ECRCL 45.94 ml/min Normal [facility] Comment on above: Order Comment: 'TROP ' Serial specimen #1, #2 or #3: 1 Performed By: #### L 300.3900, L500.2500, L501.4020, L100.0100, L500.3400, L300.4310, BTS, L501.2450 ####[facility] [address] [place], [address] EST GFR - AA 68 mL/min Normal >60 [facility] Comment on above: Order Comment: 'TROP ' Serial specimen #1, #2 or #3: 1 Result Comment: Afri can Ethiopian GFR Calc Performed By: #### L 300.3900, L500.2500, L501.4020, L100.0100, L500.3400, L300.4310, BTS, L501.2450 ####[facility] [address] [place], [address] GAP 10 Normal 5-15 [facility] Comment on above: Order Comment: 'TROP ' Serial specimen #1, #2 or #3: 1 Performed By: #### L 300.3900, L500.2500, L501.4020, L100.0100, L500.3400, L300.4310, BTS, L501.2450 ####[facility] [address] [place], [address] GFR/1.73 sq M.predicted among non-blacks MDRD (S/P/Bld) [Vol rate/Area] 56 mL/min/{1.73_m2} Low >60 [facility] Comment on above: Order Comment: 'TROP ' Serial specimen #1, #2 or #3: 1 Result Comment: Non- GFR Calc Performed By: #### L 300.3900, L500.2500, L501.4020, L100.0100, L500.3400, L300.4310, BTS, L501.2450 ####[facility] [address] [place], [address] Glucose [Mass/Vol] 123 mg/dL High 74-106 [facility] Comment on above: Order Comment: 'TROP ' Serial specimen #1, #2 or #3: 1 Result Comment: Fast ing Glucose result from 100 to 125 mg/dLsuggests IMPAIRED HOMEOSTASIS per A.D.A. criteria. Performed By: #### L 300.3900, L500.2500, L501.4020, L100.0100, L500.3400, L300.4310, BTS, L501.2450 ####[facility] [address] [place], [address] Potassium [Moles/Vol] 3.7 mmol/L Normal 3.5-5.1 [facility] Comment on above: Order Comment: 'TROP ' Serial specimen #1, #2 or #3: 1 Performed By: #### L 300.3900, L500.2500, L501.4020, L100.0100, L500.3400, L300.4310, BTS, L501.2450 ####[facility] [address] [place], [address] Sodium [Moles/Vol] 141 mmol/L Normal 136-145 [facility] Comment on above: Order Comment: 'TROP ' Serial specimen #1, #2 or #3: 1 Performed By: #### L 300.3900, L500.2500, L501.4020, L100.0100, L500.3400, L300.4310, BTS, L501.2450 ####[facility] [address] [place], [address] Urea nitrogen [Mass/Vol] 18 mg/dL Normal 7-18 [facility] Comment on above: Order Comment: 'TROP ' Serial specimen #1, #2 or #3: 1 Performed By: #### L 300.3900, L500.2500, L501.4020, L100.0100, L500.3400, L300.4310, BTS, L501.2450 ####[facility] [address] [place], [address] CBC W/Diff, Automatedon 04-01 Absolute Lymph 1.15 X10 3/uL Normal 0.83-4.51 [facility] Comment on above: Performed By: #### L 300.3900, L500.2500, L501.4020, L100.0100, L500.3400, L300.4310, BTS, L501.2450 ####[facility] [address] [place], [address] Absolute Neut 4.0 X10 3/uL Normal 2.0-7.7 [facility] Comment on above: Performed By: #### L 300.3900, L500.2500, L501.4020, L100.0100, L500.3400, L300.4310, BTS, L501.2450 ####[facility] [address] [place], [address] Basophils/100 WBC (Bld) 0.5 % Normal 0-1 [facility] Comment on above: Performed By: #### L 300.3900, L500.2500, L501.4020, L100.0100, L500.3400, L300.4310, BTS, L501.2450 ####[facility] [address] [place], [address] Eosinophils/100 WBC (Bld) 1.3 % Normal 0-5 [facility] Comment on above: Performed By: #### L 300.3900, L500.2500, L501.4020, L100.0100, L500.3400, L300.4310, BTS, L501.2450 ####[facility] [address] [place], [address] Erythrocyte distribution width (RBC) [Ratio] 13.2 % Normal 11.6-14.6 [facility] Comment on above: Performed By: #### L 300.3900, L500.2500, L501.4020, L100.0100, L500.3400, L300.4310, BTS, L501.2450 ####[facility] [address] [place], [address] Hematocrit (Bld) [Volume fraction] 21.3 % Low 40-54 [facility] Comment on above: Performed By: #### L 300.3900, L500.2500, L501.4020, L100.0100, L500.3400, L300.4310, BTS, L501.2450 ####[facility] [address] [place], [address] Hemoglobin (Bld) [Mass/Vol] 6.7 g/dL Low 13.0-16.5 [facility] Comment on above: Performed By: #### L 300.3900, L500.2500, L501.4020, L100.0100, L500.3400, L300.4310, BTS, L501.2450 ####[facility] [address] [place], [address] IG% 0.500 Normal 0.0-0.9 [facility] Comment on above: Result Comment: IG% - Immature Granulocytes (promyelocytes, myelocytes andmetamyelocytes) > 1% indicates that a LEFT SHIFT is Present. Performed By: #### L 300.3900, L500.2500, L501.4020, L100.0100, L500.3400, L300.4310, BTS, L501.2450 ####[facility] [address] [place], [address] Lymphocytes/100 WBC (Bld) 19.0 % Normal 19-41 [facility] Comment on above: Performed By: #### L 300.3900, L500.2500, L501.4020, L100.0100, L500.3400, L300.4310, BTS, L501.2450 ####[facility] [address] [place], [address] MCH (RBC) [Entitic mass] 26.7 pg Low 27.0-32.0 [facility] Comment on above: Performed By: #### L 300.3900, L500.2500, L501.4020, L100.0100, L500.3400, L300.4310, BTS, L501.2450 ####[facility] [address], [address] MCHC (RBC) [Mass/Vol] 31.5 g/dL Low 32-36 [facility] Comment on above: Performed By: #### L 300.3900, L500.2500, L501.4020, L100.0100, L500.3400, L300.4310, BTS, L501.2450 ####[facility] [address] [place], [address] MCV (RBC) [Entitic vol] 84.9 fL Normal 80-94 [facility] Comment on above: Performed By: #### L 300.3900, L500.2500, L501.4020, L100.0100, L500.3400, L300.4310, BTS, L501.2450 ####[facility] [address] [place], [address] Monocytes/100 WBC (Bld) 13.1 % High 0-10 [facility] Comment on above: Performed By: #### L 300.3900, L500.2500, L501.4020, L100.0100, L500.3400, L300.4310, BTS, L501.2450 ####[facility] [address] [place], [address] Neutrophils/100 WBC (Bld) 65.6 % Normal 47-70 [facility] Comment on above: Performed By: #### L 300.3900, L500.2500, L501.4020, L100.0100, L500.3400, L300.4310, BTS, L501.2450 ####[facility] [address] [place], [address] Nucleated RBC (Bld) [#/Vol] 0 10*3/uL Normal 0-5 [facility] Comment on above: Performed By: #### L 300.3900, L500.2500, L501.4020, L100.0100, L500.3400, L300.4310, BTS, L501.2450 ####[facility] [address] [place], [address] Platelet mean volume (Bld) [Entitic vol] 9.5 fL Normal 6.2-12.0 [facility] Comment on above: Performed By: #### L 300.3900, L500.2500, L501.4020, L100.0100, L500.3400, L300.4310, BTS, L501.2450 ####[facility] [address] [place], [address] Platelets (Bld) [#/Vol] 304 10*3/uL Normal 150-450 [facility] Comment on above: Performed By: #### L 300.3900, L500.2500, L501.4020, L100.0100, L500.3400, L300.4310, BTS, L501.2450 ####[facility] [address] [place], [address] RBC (Bld) [#/Vol] 2.51 10*6/uL Low 4.6-6.2 [facility] Comment on above: Performed By: #### L 300.3900, L500.2500, L501.4020, L100.0100, L500.3400, L300.4310, BTS, L501.2450 ####[place] [facility] [address] [place], [address] RDW SD 40.7 fl Normal 35.1-43.9 [facility] Comment on above: Performed By: #### L 300.3900, L500.2500, L501.4020, L100.0100, L500.3400, L300.4310, BTS, L501.2450 ####[facility] [address] [place], [address] WBC (Bld) [#/Vol] 6.0 10*3/uL Normal 4.4-11.0 [facility] Comment on above: Performed By: #### L 300.3900, L500.2500, L501.4020, L100.0100, L500.3400, L300.4310, BTS, L501.2450 ####[facility] [address] [place], [address] Absolute Lymph 1.28 X10 3/uL Normal 0.83-4.51 [facility] Comment on above: Performed By: #### L 501.4020, L500.4050, L300.8000, L503.6620, L100.0100 ####[facility] [address] [place], [address] Absolute Neut 3.2 X10 3/uL Normal 2.0-7.7 [facility] Comment on above: Performed By: #### L 501.4020, L500.4050, L300.8000, L503.6620, L100.0100 ####[facility] [address] [place], [address] Basophils/100 WBC (Bld) 0.4 % Normal 0-1 [facility] Comment on above: Performed By: #### L 501.4020, L500.4050, L300.8000, L503.6620, L100.0100 ####[facility] [address] [place], [address] Eosinophils/100 WBC (Bld) 1.9 % Normal 0-5 [facility] Comment on above: Performed By: #### L 501.4020, L500.4050, L300.8000, L503.6620, L100.0100 ####[facility] [address] [place], [address] Erythrocyte distribution width (RBC) [Ratio] 13.4 % Normal 11.6-14.6 [facility] Comment on above: Performed By: #### L 501.4020, L500.4050, L300.8000, L503.6620, L100.0100 ####[facility] [address] [place], [address] Hematocrit (Bld) [Volume fraction] 23.9 % Low 40-54 [facility] Comment on above: Performed By: #### L 501.4020, L500.4050, L300.8000, L503.6620, L100.0100 ####[facility] [address] [place], [address] Hemoglobin (Bld) [Mass/Vol] 7.2 g/dL Low 13.0-16.5 [facility] Comment on above: Performed By: #### L 501.4020, L500.4050, L300.8000, L503.6620, L100.0100 ####[facility] [address], [address] IG% 0.400 Normal 0.0-0.9 [facility] Comment on above: Result Comment: IG% - Immature Granulocytes (promyelocytes, myelocytes andmetamyelocytes) > 1% indicates that a LEFT SHIFT is Present. Performed By: #### L 501.4020, L500.4050, L300.8000, L503.6620, L100.0100 ####[facility] [address] [place], [address] Lymphocytes/100 WBC (Bld) 24.1 % Normal 19-41 [facility] Comment on above: Performed By: #### L 501.4020, L500.4050, L300.8000, L503.6620, L100.0100 ####[facility] [address] [place], [address] MCH (RBC) [Entitic mass] 26.2 pg Low 27.0-32.0 [facility] Comment on above: Performed By: #### L 501.4020, L500.4050, L300.8000, L503.6620, L100.0100 ####[facility] [address] [place], [address] MCHC (RBC) [Mass/Vol] 30.1 g/dL Low 32-36 [facility] Comment on above: Performed By: #### L 501.4020, L500.4050, L300.8000, L503.6620, L100.0100 ####[facility] [address] [place], [address] MCV (RBC) [Entitic vol] 86.9 fL Normal 80-94 [facility] Comment on above: Performed By: #### L 501.4020, L500.4050, L300.8000, L503.6620, L100.0100 ####[facility] [address] [place], [address] Monocytes/100 WBC (Bld) 13.6 % High 0-10 [facility] Comment on above: Performed By: #### L 501.4020, L500.4050, L300.8000, L503.6620, L100.0100 ####[facility] [address] [place], [address] Neutrophils/100 WBC (Bld) 59.6 % Normal 47-70 [facility] Comment on above: Performed By: #### L 501.4020, L500.4050, L300.8000, L503.6620, L100.0100 ####[facility] [address] [place], [address] Nucleated RBC (Bld) [#/Vol] 0 10*3/uL Normal 0-5 [facility] Comment on above: Performed By: #### L 501.4020, L500.4050, L300.8000, L503.6620, L100.0100 ####[facility] [address] [place], [address] Platelet mean volume (Bld) [Entitic vol] 9.8 fL Normal 6.2-12.0 [facility] Comment on above: Performed By: #### L 501.4020, L500.4050, L300.8000, L503.6620, L100.0100 ####[facility] [address] [place], [address] Platelets (Bld) [#/Vol] 321 10*3/uL Normal 150-450 [facility] Comment on above: Performed By: #### L 501.4020, L500.4050, L300.8000, L503.6620, L100.0100 ####[facility] [address] [place], [address] RBC (Bld) [#/Vol] 2.75 10*6/uL Low 4.6-6.2 [facility] Comment on above: Performed By: #### L 501.4020, L500.4050, L300.8000, L503.6620, L100.0100 ####[facility] [address] [place], [address] RDW SD 42.7 fl Normal 35.1-43.9 [facility] Comment on above: Performed By: #### L 501.4020, L500.4050, L300.8000, L503.6620, L100.0100 ####[facility] [address] [place], [address] WBC (Bld) [#/Vol] 5.3 10*3/uL Normal 4.4-11.0 [facility] Comment on above: Performed By: #### L 501.4020, L500.4050, L300.8000, L503.6620, L100.0100 ####[facility] [address] [place], [address] CTA Chst, Abd, Pel W and/or WOon 04-11-2024 CTA Chst, Abd, Pel W and/or WO Normal [facility] Comprehensive Metabolic Prof ilon 04-11-2024 Albumin [Mass/Vol] 3.5 g/dL Normal 3.2-5.0 [facility] Comment on above: Order Comment: 1 Performed By: #### L 501.4020, L500.4050, L300.8000, L503.6620, L100.0100 ####[facility] [address] [place], [address] Albumin/Globulin [Mass ratio] 1.0 {ratio} Normal 0.9-2.4 [facility] Comment on above: Order Comment: 1 Performed By: #### L 501.4020, L500.4050, L300.8000, L503.6620, L100.0100 ####[facility] [address] [place], [address] ALK P 89 U/L Normal 45-117 [facility] Comment on above: Order Comment: 1 Performed By: #### L 501.4020, L500.4050, L300.8000, L503.6620, L100.0100 ####[facility] [address] [place], [address] ALT [Catalytic activity/Vol] 19 U/L Normal 16-61 [facility] Comment on above: Order Comment: 1 Performed By: #### L 501.4020, L500.4050, L300.8000, L503.6620, L100.0100 ####[facility] [address] [place], [address] AST [Catalytic activity/Vol] 19 U/L Normal 15-37 [facility] Comment on above: Order Comment: 1 Performed By: #### L 501.4020, L500.4050, L300.8000, L503.6620, L100.0100 ####[facility] [address] [place], [address] Bilirubin [Mass/Vol] 0.30 mg/dL Normal 0.20-1.00 [facility] Comment on above: Order Comment: 1 Result Comment: For patients on eltrombopag therapy, use of Dimension [place] TBIL is not recommended. Performed By: #### L 501.4020, L500.4050, L300.8000, L503.6620, L100.0100 ####[facility] [address] [place], [address] BUN/CRE 13.2 RATIO Normal 10-20 [facility] Comment on above: Order Comment: 1 Performed By: #### L 501.4020, L500.4050, L300.8000, L503.6620, L100.0100 ####[facility] [address] [place], [address] CA,Total 9.2 mg/dL Normal 8.5-10.1 [facility] Comment on above: Order Comment: 1 Performed By: #### L 501.4020, L500.4050, L300.8000, L503.6620, L100.0100 ####[facility] [address] [place], [address] Chloride [Moles/Vol] 104 mmol/L Normal 98-107 [facility] Comment on above: Order Comment: 1 Performed By: #### L 501.4020, L500.4050, L300.8000, L503.6620, L100.0100 ####[facility] [address] [place], [address] CO2 [Moles/Vol] 26.0 mmol/L Normal 21.0-32.0 [facility] Comment on above: Order Comment: 1 Performed By: #### L 501.4020, L500.4050, L300.8000, L503.6620, L100.0100 ####[facility] [address] [place], [address] Creatinine [Mass/Vol] 1.14 mg/dL Normal 0.70-1.30 [facility] Comment on above: Order Comment: 1 Result Comment: The validity of the calculated GFR GFRAA in patients over70 years has not been determined. Clinical correlation isessential. Performed By: #### L 501.4020, L500.4050, L300.8000, L503.6620, L100.0100 ####[facility] [address] [place], [address] EST GFR - AA 80 mL/min Normal >60 [facility] Comment on above: Order Comment: 1 Result Comment: Afri can Ethiopian GFR Calc Performed By: #### L 501.4020, L500.4050, L300.8000, L503.6620, L100.0100 ####[facility] [address] [place], [address] GAP 6 Normal 5-15 [facility] Comment on above: Order Comment: 1 Performed By: #### L 501.4020, L500.4050, L300.8000, L503.6620, L100.0100 ####[facility] [address] [place], [address] GFR/1.73 sq M.predicted among non-blacks MDRD (S/P/Bld) [Vol rate/Area] 66 mL/min/{1.73_m2} Normal >60 [facility] Comment on above: Order Comment: 1 Result Comment: Non- GFR Calc Performed By: #### L 501.4020, L500.4050, L300.8000, L503.6620, L100.0100 ####[facility] [address] [place], [address] Globulin (S) [Mass/Vol] 3.4 g/dL Normal 2.2-4.2 [facility] Comment on above: Order Comment: 1 Performed By: #### L 501.4020, L500.4050, L300.8000, L503.6620, L100.0100 ####[facility] [address] [place], [address] Glucose [Mass/Vol] 108 mg/dL High 74-106 [facility] Comment on above: Order Comment: 1 Result Comment: Fast ing Glucose result from 100 to 125 mg/dLsuggests IMPAIRED HOMEOSTASIS per A.D.A. criteria. Performed By: #### L 501.4020, L500.4050, L300.8000, L503.6620, L100.0100 ####[facility] [address] [place], [address] Potassium [Moles/Vol] 3.9 mmol/L Normal 3.5-5.1 [facility] Comment on above: Order Comment: 1 Performed By: #### L 501.4020, L500.4050, L300.8000, L503.6620, L100.0100 ####[facility] [address] [place], [address] Sodium [Moles/Vol] 136 mmol/L Normal 136-145 [facility] Comment on above: Order Comment: 1 Performed By: #### L 501.4020, L500.4050, L300.8000, L503.6620, L100.0100 ####[facility] [address] [place], [address] T PROT 6.9 g/dL Normal 6.4-8.2 [facility] Comment on above: Order Comment: 1 Performed By: #### L 501.4020, L500.4050, L300.8000, L503.6620, L100.0100 ####[facility] [address] [place], [address] Urea nitrogen [Mass/Vol] 15 mg/dL Normal 7-18 [facility] Comment on above: Order Comment: 1 Performed By: #### L 501.4020, L500.4050, L300.8000, L503.6620, L100.0100 ####[facility] [address] [place], [address] D-Dimer Quantitative (DVT/PE )on 04-11-2024 D-DIMER QUANT 2.00 FEU/ug/m Invalid Interpretation Code 0.27-0.49 [facility] Comment on above: Result Comment: D-Di gita ELEVATED (>0.49): Additional studies and clinicalassessments are indicated to conclude diagnosis of:Deep Vein Thrombosis (DVT) or Pulmonary Embolism (PE)CRITICAL VALUE CALLED TO MARIELA OLSON04/11/24 Keon Bolanos.RESULTS READ BACK BY SAME. Performed By: #### L 501.4020, L500.4050, L300.8000, L503.6620, L100.0100 ####[facility] [address] [place], [address] Emergency Department Summary on 04-11-2024 Emergency Department Summary Normal [facility] H AND P Exam - Hospitaliston 04-11-2024 H&P Exam - Hospitalist Normal [facility] L501.4020on 04-11-2024 TROPONIN-I HS 124 pg/mL Invalid Interpretation Code 3.0-78.0 [facility] Comment on above: Order Comment: 'TROP ' Serial specimen #1, #2 or #3: 1 Result Comment: Plea se Note: New Test Units and Gender Specific Reference Ranges. For more information see Policy Stat Procedure [place] High Sensitivity Troponin (TNIH) and attachments. Performed By: #### L 300.3900, L500.2500, L501.4020, L100.0100, L500.3400, L300.4310, BTS, L501.2450 ####[facility] [address] [place], [address] TROPONIN-I HS 123 pg/mL Invalid Interpretation Code 3.0-78.0 [facility] Comment on above: Order Comment: 1 Result Comment: CRIT ICAL VALUE CALLED TO MARIELA OLSON04/11/24 1822 Gudelia Ramosxler.RESULTS READ BACK BY SAME. Please Note: New Test Units and Gender Specific Reference Ranges. For more information see Policy Stat Procedure [place] High Sensitivity Troponin (TNIH) and attachments. Performed By: #### L 501.4020, L500.4050, L300.8000, L503.6620, L100.0100 ####[facility] [address] [place], [place], [address] Lipaseon 04-11-2024 Lipase [Catalytic activity/Vol] 29 U/L Normal 13-75 [facility] Comment on above: Order Comment: 'TROP ' Serial specimen #1, #2 or #3: 1 Result Comment: Plea se note:LIPASE revised reference range effective 22.New Lipase methodology. Expected to produce lower valuesthan the previous assay method.NEW Reference Range: 13 - 75 U/L Performed By: #### L 300.3900, L500.2500, L501.4020, L100.0100, L500.3400, L300.4310, BTS, L501.2450 ####[facility] [address] [place], [address] Liver Profileon 04-11-2024 Albumin [Mass/Vol] 3.4 g/dL Normal 3.2-5.0 [facility] Comment on above: Order Comment: 'TROP ' Serial specimen #1, #2 or #3: 1 Performed By: #### L 300.3900, L500.2500, L501.4020, L100.0100, L500.3400, L300.4310, BTS, L501.2450 ####[facility] [address] [place], [address] ALK P 87 U/L Normal 45-117 [facility] Comment on above: Order Comment: 'TROP ' Serial specimen #1, #2 or #3: 1 Performed By: #### L 300.3900, L500.2500, L501.4020, L100.0100, L500.3400, L300.4310, BTS, L501.2450 ####[facility] [address] [place], [address] ALT [Catalytic activity/Vol] 18 U/L Normal 16-61 [facility] Comment on above: Order Comment: 'TROP ' Serial specimen #1, #2 or #3: 1 Performed By: #### L 300.3900, L500.2500, L501.4020, L100.0100, L500.3400, L300.4310, BTS, L501.2450 ####[facility] [address] [place], [address] AST [Catalytic activity/Vol] 15 U/L Normal 15-37 [facility] Comment on above: Order Comment: 'TROP ' Serial specimen #1, #2 or #3: 1 Performed By: #### L 300.3900, L500.2500, L501.4020, L100.0100, L500.3400, L300.4310, BTS, L501.2450 ####[facility] [address] [place], [address] Bilirubin [Mass/Vol] 0.30 mg/dL Normal 0.20-1.00 [facility] Comment on above: Order Comment: 'TROP ' Serial specimen #1, #2 or #3: 1 Result Comment: For patients on eltrombopag therapy, use of Dimension [place] TBIL is not recommended. Performed By: #### L 300.3900, L500.2500, L501.4020, L100.0100, L500.3400, L300.4310, BTS, L501.2450 ####[facility] [address] [place], [address] Bilirubin.direct [Mass/Vol] 0.09 mg/dL Normal 0.00-0.30 [facility] Comment on above: Order Comment: 'TROP ' Serial specimen #1, #2 or #3: 1 Performed By: #### L 300.3900, L500.2500, L501.4020, L100.0100, L500.3400, L300.4310, BTS, L501.2450 ####[facility] [address] [place], [address] Globulin (S) [Mass/Vol] 3.2 g/dL Normal 2.2-4.2 [facility] Comment on above: Order Comment: 'TROP ' Serial specimen #1, #2 or #3: 1 Performed By: #### L 300.3900, L500.2500, L501.4020, L100.0100, L500.3400, L300.4310, BTS, L501.2450 ####[facility] [address] [place], [address] T PROT 6.6 g/dL Normal 6.4-8.2 [facility] Comment on above: Order Comment: 'TROP ' Serial specimen #1, #2 or #3: 1 Performed By: #### L 300.3900, L500.2500, L501.4020, L100.0100, L500.3400, L300.4310, BTS, L501.2450 ####[facility] [address] [place], [address] Partial Thromboplast Timeon 04-11-2024 aPTT Coag (Bld) [Time] 27.9 s Normal 24.1-36.2 [facility] Comment on above: Performed By: #### L 300.3900, L500.2500, L501.4020, L100.0100, L500.3400, L300.4310, BTS, L501.2450 ####[facility] [address] [place], [address] Prothrombin Time w/INRon INR Coag (PPP) [Relative time] 1.1 {INR} Normal [facility] Comment on above: Performed By: #### L 300.3900, L500.2500, L501.4020, L100.0100, L500.3400, L300.4310, BTS, L501.2450 ####[facility] [address] [place], [address] PT Coag (PPP) [Time] 13.8 s Normal 11.7-14.9 [facility] Comment on above: Performed By: #### L 300.3900, L500.2500, L501.4020, L100.0100, L500.3400, L300.4310, BTS, L501.2450 ####[facility] [address] [place], [address] Type AND Screenon 04-11-2024 Ab SCREEN GEL Negative Normal [facility] Comment on above: Order Comment: A Performed By: #### L 300.3900, L500.2500, L501.4020, L100.0100, L500.3400, L300.4310, BTS, L501.2450 ####[facility] [address] [place], [address] ABO and Rh group Nom (Bld) Blood group O Rh(D) positive Normal [facility] Comment on above: Order Comment: A Performed By: #### L 300.3900, L500.2500, L501.4020, L100.0100, L500.3400, L300.4310, BTS, L501.2450 ####[facility] [address] [place], [address] MR/BMS.BVSon 02-15-2024 MR/BMS.BVS Normal [facility] CREATININE FINGERSTICKon CREATININE WB < 1.0 Normal 0.70-1.30 [facility] Comment on above: Performed By: #### L 9100.0200 ####[facility] [address] [place], [address] EGFR WB > 60.0000 Normal >60 [facility] Comment on above: Performed By: #### L 9100.0200 ####[facility] [address] [place], [address] CTA Abd w/Runoff W/WO Contra ston 02-03-2024 CTA Abd w/Runoff W/WO Contrast Normal [facility] Absolute lymphocyte countOrd ered By: Stevie Vela on 12-11-2023 Lymphocytes Auto (Unsp spec) [#/Vol] 1.38 10*3/uL 0.83-4.51 [facility] Automated lymphocyte count a s percentage of total leukocytesOrdered By: Stevie Vela on 12-11-2023 Lymphocytes/100 WBC Auto (Unsp spec) 23.2 % 19-41 [facility] Basophil percentageOrdered B y: Stevie Vela on 12-11-2023 Basophils/100 WBC (Bld) 0.5 % 0-1 [facility] Chloride [Moles/Vol] 105 mmol/L 98-107 [facility] Eosinophils/100 WBC (Bld) 2.2 % 0-5 [facility] Glucose [Mass/Vol] 107 mg/dL 74-106 [facility] Comment on above: Fasting Glucose resu lt from 100 to 125 mg/dL suggests IMPAIRED HOMEOSTASIS per A.D.A. criteria. Hemoglobin (Bld) [Mass/Vol] 11.7 g/dL 13.0-16.5 [facility] Monocytes/100 WBC (Bld) 9.4 % 0-10 [facility] Neutrophils (Bld) [#/Vol] 3.8 10*3/uL 2.0-7.7 [facility] Neutrophils/100 WBC (Bld) 64.4 % 47-70 [facility] Potassium [Moles/Vol] 4.1 mmol/L 3.5-5.1 [facility] Sodium [Moles/Vol] 138 mmol/L 136-145 [facility] WBC (Bld) [#/Vol] 5.9 10*3/uL 4.4-11.0 [facility] Determination of erythrocyte mean corpuscular volume (MCV)Ordered By: Stevie Vela on 12-11-2023 MCV (RBC) [Entitic vol] 90.7 fL 80-94 [facility] Erythrocyte distribution wid th ratioOrdered By: Stevie Vela on 12-11-2023 Erythrocyte distribution width (RBC) [Ratio] 12.8 % 11.6-14.6 [facility] Erythrocyte distribution wid th standard deviationOrdered By: Stevie Vela on 12-11-2023 Erythrocyte distribution width (RBC) [Entitic vol] 41.6 fL 35.1-43.9 [facility] Hematocrit Auto (Bld) [Volum e fraction]Ordered By: Stevie Vela on 12-11-2023 Hematocrit (Bld) [Volume fraction] 35.1 % 40-54 [facility] Immature granulocytes/100 WB C Auto (Bld)Ordered By: Stevie Vela on 12-11-2023 Immature granulocytes/100 WBC (Bld) 0.300 % 0.0-0.9 [facility] Comment on above: IG% - Immature Granu locytes (promyelocytes, myelocytes and metamyelocytes) > 1% indicates that a LEFT SHIFT is Present. Laboratory - Chemistry and C hemistry - challengeOrdered By: Stevie Vela on 12-11-2023 CO2 [Moles/Vol] 27.0 mmol/L 21.0-32.0 [facility] Urea nitrogen/Creatinine [Mass ratio] 20.3 mg/mg 10-20 [facility] Laboratory - Hematology and Cell countsOrdered By: Stevie Vela on 12-11-2023 MCH (RBC) [Entitic mass] 30.2 pg 27.0-32.0 [facility] MCHC (RBC) [Mass/Vol] 33.3 g/dL 32-36 [facility] Nucleated RBC/100 WBC (Bld) [Ratio] 0 % 0-5 [facility] Platelet mean volume (Bld) [Entitic vol] 9.8 fL 6.2-12.0 [facility] Platelets (Bld) [#/Vol] 233 10*3/uL 150-450 [facility] No Panel InformationOrdered By: Stevie Vela on 12-11-2023 Estimated Creatinine Clearance Calc 54.39 ml/min [facility] Estimated GFR (MDRD) Amer 76 mL/min >60 [facility] Comment on above: GFR Calc Estimated GFR (MDRD) Non-Af Amer 63 mL/min >60 [facility] Comment on above: Non- GFR Calc Troponin I High Sensitivity 77 pg/mL 3.0-78.0 [facility] Comment on above: Please Note: New Wendy t Units and Gender Specific Reference Ranges. For more information see Policy Stat Procedure [place] High Sensitivity Troponin (TNIH) and attachments. RBC Auto (Bld) [#/Vol]Ordere d By: Stevie Vela on 12-11-2023 RBC (Bld) [#/Vol] 3.87 10*6/uL 4.6-6.2 [facility] Serum or plasma calcium shagufta urement (mass/volume)Ordered By: Stevie Vela on 12-11-2023 Calcium [Mass/Vol] 8.8 mg/dL 8.5-10.1 [facility] Serum or plasma creatinine m easurement (mass/volume)Ordered By: Stevie Vela on 12-11-2023 Creatinine [Mass/Vol] 1.18 mg/dL 0.70-1.30 [facility] Comment on above: The validity of the calculated GFR & GFRAA in patients over 70 years has not been determined. Clinical correlation is essential. Serum or plasma urea nitroge n measurement (mass/volume)Ordered By: Stevie Vela on 12-11-2023 Urea nitrogen [Mass/Vol] 24 mg/dL 7-18 [facility] Thin prep Papanicolaou smear with manual screeningOrdered By: Stevie Vela on 12-11-2023 Thin prep Papanicolaou smear with manual screening 6 -15 [facility] Basophil percentageOrdered B y: Neville Islas on 08-22-2023 Testosterone [Mass/Vol] 374 ng/dL 264-916 [facility] Comment on above: Adult male reference interval is based on a population ofhealthy nonobese males (BMI <30) between 19 and 39 yearsold. michelle Jordan.al. JCEM 2017,102;9241-9074. PMID:12589011. Free testosterone percentage Ordered By: Neville Islas on 08-22-2023 Testosterone Free/Testosterone.tota l [Mass fraction] 1.85 % 1.50-4.20 [facility] - Chemistry and C hemistry - challengeOrdered By: Neville Islas on 08-22-2023 Prolactin IA Qn 11.4 ng/mL [facility] Comment on above: NORMAL REFERENCE RAN GES FEMALE NON- 2.2 - 30.3 ng/mL 8.1 - 347.6 ng/mL POST-MENOPAUSAL 0.7 - 31.5 ng/mL MALE 2.5 - 17.4 ng/mL Transferrin [Mass/Vol] 250 mg/dL [phone] [facility] Comment on above: Performed at: - [address] [id number] Director: Jian Paredes PhD, Phone: [phone] at: [facility] [id number] Director: Tejal Dumas MD, Phone: [phone] Serum or plasma testosterone free measurement (mass/volume)Ordered By: Neville Islas on 08-22-2023 Testosterone Free [Mass/Vol] 6.92 ng/dL 5.00-21.00 [facility] Serum or plasma thyroid stim ulating hormone (TSH) measurement (units/volume)Ordered By: Neville Islas on 08-22-2023 TSH Qn 4.59 uIU/mL 0.358-3.74 [facility] Absolute lymphocyte countOrd ered By: Darrel Sanders on 08-16-2023 Lymphocytes Auto (Unsp spec) [#/Vol] 2.04 10*3/uL 0.83-4.51 [facility] Basophil percentageOrdered B y: Darrel Sanders on 08-16-2023 Basophil percentage 3.1 mg/dL 2.5-4.9 [facility] Basophils/100 WBC (Bld) 0.3 % 0-1 [facility] Bilirubin [Mass/Vol] 0.80 mg/dL 0.20-1.00 [facility] Comment on above: For patients on eltr ombopag therapy, use of Dimension [place] TBIL is not recommended. Chloride [Moles/Vol] 105 mmol/L 98-107 [facility] Cholesterol [Mass/Vol] 203 mg/dL <200 [facility] Comment on above: <200 mg/dL Desirable 200-240 mg/dL Borderline >240 mg/dL High Risk Eosinophils/100 WBC (Bld) 1.9 % 0-5 [facility] Glucose [Mass/Vol] 91 mg/dL 74-106 [facility] Neutrophils (Bld) [#/Vol] 3.5 10*3/uL 2.0-7.7 [facility] Neutrophils/100 WBC (Bld) 56.6 % 47-70 [facility] Potassium [Moles/Vol] 3.7 mmol/L 3.5-5.1 [facility] Protein [Mass/Vol] 7.3 g/dL 6.4-8.2 [facility] Sodium [Moles/Vol] 137 mmol/L 136-145 [facility] Triglyceride [Mass/Vol] 105 mg/dL <199 [facility] Comment on above: The drugs N-Acetylcy steine and Metamizole may falsely depress this assay.Serum Triglycerides Reference Interval Normal <150 mg/dL Borderline high 150 - 199 mg/dL High 200 - 499 mg/dL Very High > or = 500 mg/dL WBC (Bld) [#/Vol] 6.2 10*3/uL 4.4-11.0 [facility] Blood erythrocytes count (nu mber/volume)Ordered By: Darrel Sanders on 08-16-2023 RBC (Bld) [#/Vol] 4.25 10*6/uL 4.6-6.2 [facility] Blood hemoglobin measurement (mass/volume)Ordered By: Darrel Sanders on 08-16-2023 Hemoglobin (Bld) [Mass/Vol] 12.7 g/dL 13.0-16.5 [facility] Blood lymphocytes/100 leukoc ytesOrdered By: Darrel Sanders on 08-16-2023 Lymphocytes/100 WBC (Bld) 32.7 % 19-41 [facility] Blood monocytes/100 leukocyt esOrdered By: Darrel Sanders on 08-16-2023 Monocytes/100 WBC (Bld) 8.3 % 0-10 [facility] Blood platelet mean volumeOr dered By: Darrel Sanders on 08-16-2023 Platelet mean volume (Bld) [Entitic vol] 9.9 fL 6.2-12.0 [facility] Determination of erythrocyte mean corpuscular volume (MCV)Ordered By: Darrel Sanders on 08-16-2023 MCV (RBC) [Entitic vol] 89.2 fL 80-94 [facility] Hematocrit Auto (Bld) [Volum e fraction]Ordered By: Darrel Sanders on 08-16-2023 Hematocrit (Bld) [Volume fraction] 37.9 % 40-54 [facility] Laboratory - Chemistry and C hemistry - challengeOrdered By: Darrel Sanders on 08-16-2023 ALP [Catalytic activity/Vol] 87 U/L 45-117 [facility] ALT [Catalytic activity/Vol] 28 U/L 16-61 [facility] CO2 [Moles/Vol] 26.0 mmol/L 21.0-32.0 [facility] Globulin (S) [Mass/Vol] 3.5 g/dL 2.2-4.2 [facility] Magnesium [Mass/Vol] 2.2 mg/dL 1.6-2.6 [facility] Urea nitrogen/Creatinine [Mass ratio] 18.6 mg/mg 10-20 [facility] - Hematology and Cell countsOrdered By: Darrel Sanders on 08-16-2023 Erythrocyte distribution width (RBC) [Entitic vol] 43.4 fL 35.1-43.9 [facility] Erythrocyte distribution width (RBC) [Ratio] 13.3 % 11.6-14.6 [facility] Immature granulocytes/100 WBC (Bld) 0.200 % 0.0-0.9 [facility] Comment on above: IG% - Immature Granu locytes (promyelocytes, myelocytes and metamyelocytes) > 1% indicates that a LEFT SHIFT is Present. MCH (RBC) [Entitic mass] 29.9 pg 27.0-32.0 [facility] Nucleated RBC/100 WBC (Bld) [Ratio] 0 % 0-5 [facility] MCHC Auto (RBC) [Mass/Vol]Or dered By: Darrel Sanders on 08-16-2023 MCHC (RBC) [Mass/Vol] 33.5 g/dL 32-36 [facility] No Panel InformationOrdered By: Darrel Sanders on 08-16-2023 Estimated Creatinine Clearance Calc 58.72 ml/min [facility] Estimated GFR (MDRD) Amer 91 mL/min >60 [facility] Comment on above: GFR Calc Estimated GFR (MDRD) Non-Af Amer 75 mL/min >60 [facility] Comment on above: Non- GFR Calc D-Dimer Quantitative (PE/DVT) 0.79 FEU/ug/m 0.27-0.49 [facility] Comment on above: D-Dimer ELEVATED (>0 .49): Additional studies and clinicalassessments are indicated to conclude diagnosis of:Deep Vein Thrombosis (DVT) or Pulmonary Embolism (PE)CRITICAL VALUE VERIFIED. CALLED TO [id number] Nannette Cardenas.RESULTS READ BACK BY SAME. Troponin I High Sensitivity 96 pg/mL 3.0-78.0 [facility] Comment on above: Please Note: New Wendy t Units and Gender Specific Reference Ranges. For more information see Policy Stat Procedure [place] High Sensitivity Troponin (TNIH) and attachments. Platelets bldOrdered By: Esdras Sanders on 08-16-2023 Platelets (Bld) [#/Vol] 250 10*3/uL 150-450 [facility] Serum or plasma albumin shagufta urement (mass/volume)Ordered By: Darrel Sanders on 08-16-2023 Albumin [Mass/Vol] 3.8 g/dL 3.2-5.0 [facility] Serum or plasma albumin/glob ulin mass ratioOrdered By: Darrel Sanders on 08-16-2023 Albumin/Globulin [Mass ratio] 1.1 {ratio} 0.9-2.4 [facility] Serum or plasma calcium shagufta urement (mass/volume)Ordered By: Darrel Sanders on 08-16-2023 Calcium [Mass/Vol] 9.4 mg/dL 8.5-10.1 [facility] Serum or plasma cholesterol in HDL measurement (mass/volume)Ordered By: Darrel Sanders on 08-16-2023 Cholesterol in HDL [Mass/Vol] 59 mg/dL >40 [facility] Comment on above: The drugs N-Acetylcy steine and Metamizole may falsely depress this assay. Reference Range HDL <40 mg/dL Low HDL Cholesterol HDL >or= 60 mg/dL High HDL Cholesterol Serum or plasma cholesterol in VLDL measurement (mass/volume)Ordered By: Darrel Sanders on 08-16-2023 Cholesterol in VLDL [Mass/Vol] 21 mg/dL 5-40 [facility] Serum or plasma creatinine m easurement (mass/volume)Ordered By: Darrel Sanders on 08-16-2023 Creatinine [Mass/Vol] 1.02 mg/dL 0.70-1.30 [facility] Comment on above: The validity of the calculated GFR & GFRAA in patients over 70 years has not been determined. Clinical correlation is essential. Serum or plasma low density lipoprotein (LDL) cholesterol measurement (mass/volume)Ordered By: Darrel Sanders on 08-16-2023 Cholesterol in LDL [Mass/Vol] 123 mg/dL 0-130 [facility] Serum or plasma thyroid stim ulating hormone (TSH) measurement (units/volume)Ordered By: Lucy Polanco on 08-16-2023 TSH Qn 4.27 uIU/mL 0.358-3.74 [facility] Serum or plasma urea nitroge n measurement (mass/volume)Ordered By: Darrel Sanders on 08-16-2023 Urea nitrogen [Mass/Vol] 19 mg/dL 7-18 [facility] Thin prep Papanicolaou smear with manual screeningOrdered By: Darrel Sanders on 08-16-2023 Thin prep Papanicolaou smear with manual screening 25 U/L 15-37 [facility] Thin prep Papanicolaou smear with manual screening 6 5-15 [facility] Thin prep Papanicolaou smear with manual screeningOrdered By: Luyc Polanco on 08-16-2023 Thin prep Papanicolaou smear with manual screening 0.97 ng/dL 0.76-1.46 [facility] Absolute lymphocyte countOrd ered By: Faustina Garrison on 08-15-2023 Lymphocytes Auto (Unsp spec) [#/Vol] 1.56 10*3/uL 0.83-4.51 [facility] Basophil percentageOrdered B y: Faustina Garrison on 08-15-2023 Basophil percentage 0 SEEN /hpf 0-5 [facility] Basophils/100 WBC (Bld) 0.5 % 0-1 [facility] Bilirubin [Mass/Vol] 0.60 mg/dL 0.20-1.00 [facility] Comment on above: For patients on eltr ombopag therapy, use of Dimension [place] TBIL is not recommended. Chloride [Moles/Vol] 100 mmol/L 98-107 [facility] Eosinophils/100 WBC (Bld) 2.9 % 0-5 [facility] Glucose [Mass/Vol] 99 mg/dL 74-106 [facility] Neutrophils (Bld) [#/Vol] 3.9 10*3/uL 2.0-7.7 [facility] Neutrophils/100 WBC (Bld) 62.4 % 47-70 [facility] Potassium [Moles/Vol] 4.7 mmol/L 3.5-5.1 [facility] Comment on above: Slight Hemolysis, Re sult may be falsely increased. Protein [Mass/Vol] 7.6 g/dL 6.4-8.2 [facility] Sodium [Moles/Vol] 136 mmol/L 136-145 [facility] WBC (Bld) [#/Vol] 6.2 10*3/uL 4.4-11.0 [facility] Bilirubin Test strip Ql (U)O rdered By: Faustina Garrison on 08-15-2023 Bilirubin Ql (U) Negative Negative [facility] Blood erythrocytes count (nu mber/volume)Ordered By: Faustina Garrison on 08-15-2023 RBC (Bld) [#/Vol] 4.26 10*6/uL 4.6-6.2 [facility] Blood hemoglobin measurement (mass/volume)Ordered By: Faustina Garrison on 08-15-2023 Hemoglobin (Bld) [Mass/Vol] 13.2 g/dL 13.0-16.5 [facility] Blood lymphocytes/100 leukoc ytesOrdered By: Faustina Garrison on 08-15-2023 Lymphocytes/100 WBC (Bld) 25.1 % 19-41 [facility] Blood monocytes/100 leukocyt esOrdered By: Faustina Garrison on 08-15-2023 Monocytes/100 WBC (Bld) 8.8 % 0-10 [facility] Blood platelet mean volumeOr dered By: Faustina Garrison on 08-15-2023 Platelet mean volume (Bld) [Entitic vol] 9.9 fL 6.2-12.0 [facility] Determination of erythrocyte mean corpuscular volume (MCV)Ordered By: Faustina Garrison on 08-15-2023 MCV (RBC) [Entitic vol] 90.6 fL 80-94 [facility] Hematocrit Auto (Bld) [Volum e fraction]Ordered By: Faustina Garrison on 08-15-2023 Hematocrit (Bld) [Volume fraction] 38.6 % 40-54 [facility] Ketones Test strip Ql (U)Ord ered By: Faustina Garrison on 08-15-2023 Ketones Ql (U) Negative Negative [facility] - Chemistry and C hemistry - challengeOrdered By: Faustina Garrison on 08-15-2023 ALP [Catalytic activity/Vol] 97 U/L 45-117 [facility] ALT [Catalytic activity/Vol] 31 U/L 16-61 [facility] CO2 [Moles/Vol] 28.0 mmol/L 21.0-32.0 [facility] Globulin (S) [Mass/Vol] 3.7 g/dL 2.2-4.2 [facility] Magnesium [Mass/Vol] 2.0 mg/dL 1.6-2.6 [facility] Comment on above: Slight Hemolysis, Re sult may be falsely increased. Urea nitrogen/Creatinine [Mass ratio] 18.0 mg/mg 10-20 [facility] - Hematology and Cell countsOrdered By: Faustina Garrison on 08-15-2023 Erythrocyte distribution width (RBC) [Entitic vol] 43.6 fL 35.1-43.9 [facility] Erythrocyte distribution width (RBC) [Ratio] 13.2 % 11.6-14.6 [facility] Immature granulocytes/100 WBC (Bld) 0.300 % 0.0-0.9 [facility] Comment on above: IG% - Immature Granu locytes (promyelocytes, myelocytes and metamyelocytes) > 1% indicates that a LEFT SHIFT is Present. MCH (RBC) [Entitic mass] 31.0 pg 27.0-32.0 [facility] Nucleated RBC/100 WBC (Bld) [Ratio] 0 % 0-5 [facility] MCHC Auto (RBC) [Mass/Vol]Or dered By: Faustina Garrison on 08-15-2023 MCHC (RBC) [Mass/Vol] 34.2 g/dL 32-36 [facility] Mucus LM Ql (Urine sed)Order ed By: Faustina Garrison on 08-15-2023 Mucus Ql (Urine sed) 0 SEEN /hpf [facility] Nitrite Test strip Ql (U)Ord ered By: Faustina Garrison on 08-15-2023 Nitrite Ql (U) Negative Negative [facility] No Panel InformationOrdered By: Faustina Garrison on 08-15-2023 Troponin I High Sensitivity 85 pg/mL 3.0-78.0 [facility] Comment on above: Please Note: New Wendy t Units and Gender Specific Reference Ranges. For more information see Policy Stat Procedure [place] High Sensitivity Troponin (TNIH) and attachments. Estimated Creatinine Clearance Calc 52.21 ml/min [facility] Estimated GFR (MDRD) Amer 82 mL/min >60 [facility] Comment on above: GFR Calc Estimated GFR (MDRD) Non-Af Amer 68 mL/min >60 [facility] Comment on above: Non- GFR Calc Platelets bldOrdered By: Natali Garrison on 08-15-2023 Platelets (Bld) [#/Vol] 242 10*3/uL 150-450 [facility] Protein Test strip Ql (U)Ord ered By: Faustina Garrison on 08-15-2023 Protein Ql (U) Negative Negative [facility] Serum or plasma albumin shagufta urement (mass/volume)Ordered By: Faustina Garrison on 08-15-2023 Albumin [Mass/Vol] 3.9 g/dL 3.2-5.0 [facility] Serum or plasma albumin/glob ulin mass ratioOrdered By: Faustina Garrison on 08-15-2023 Albumin/Globulin [Mass ratio] 1.1 {ratio} 0.9-2.4 [facility] Serum or plasma calcium shagufta urement (mass/volume)Ordered By: Faustina Garrison on 08-15-2023 Calcium [Mass/Vol] 9.3 mg/dL 8.5-10.1 [facility] Serum or plasma creatinine m easurement (mass/volume)Ordered By: Faustina Garrison on 08-15-2023 Creatinine [Mass/Vol] 1.11 mg/dL 0.70-1.30 [facility] Comment on above: The validity of the calculated GFR & GFRAA in patients over 70 years has not been determined. Clinical correlation is essential. Serum or plasma urea nitroge n measurement (mass/volume)Ordered By: Faustina Garrison on 08-15-2023 Urea nitrogen [Mass/Vol] 20 mg/dL 7-18 [facility] Squamous epithelial cells de tection in urine sediment by light microscopyOrdered By: Faustina Garrison on 08-15-2023 Epithelial cells.squamous LM Ql (Urine sed) 0-5 SEEN /hpf 0-5 [facility] Thin prep Papanicolaou smear with manual screeningOrdered By: Faustina Garrison on 08-15-2023 Thin prep Papanicolaou smear with manual screening 29 U/L 15-37 [facility] Comment on above: Slight Hemolysis, Re sult may be falsely increased. Thin prep Papanicolaou smear with manual screening 8 5-15 [facility] Urine blood detectionOrdered By: Faustian Garrison on 08-15-2023 RBC Ql (U) Negative Negative [facility] RBC Ql (U) 0 SEEN /hpf 0-5 [facility] Urine clarityOrdered By: Natali Garrison on 08-15-2023 Clarity (U) Sl. Cloudy Clear [facility] Urine color determinationOrd ered By: Faustina Garrison on 08-15-2023 Color (U) Yellow Yellow [facility] Urine glucose detectionOrder ed By: Faustina Garrison on 08-15-2023 Glucose Ql (U) Normal mg/dl Normal [facility] Urine leukocyte esterase det ection by dipstickOrdered By: Faustina Garrison on 08-15-2023 Leukocyte esterase Test strip Ql (U) Negative Negative [facility] Urine pHOrdered By: Faustina bartlett on 08-15-2023 pH (U) 8.0 [pH] 5.0 - 8.0 [facility] Urine sediment bacteria coun t by microscopy (number/high power field)Ordered By: Faustina Garrison on 08-15-2023 Bacteria LM.HPF (Urine sed) [#/Area] 0 /[HPF] None Seen [facility] Urine specific gravity measu rementOrdered By: Faustina Garrison on 08-15-2023 Specific gravity (U) [Rel density] 1.010 1.002-1.030 [facility] Urobilinogen Auto test strip Ql (U)Ordered By: Faustina Garrison on 08-15-2023 Urobilinogen Ql (U) Normal mg/dl Normal [facility] Absolute lymphocyte countOrd ered By: Mariela Olson on 01-25-2023 Lymphocytes Auto (Unsp spec) [#/Vol] 2.09 10*3/uL 0.83-4.51 [facility] Basophil percentageOrdered B y: Mariela Olson on 01-25-2023 Basophils/100 WBC (Bld) 0.6 % 0-1 [facility] Chloride [Moles/Vol] 106 mmol/L 98-107 [facility] Eosinophils/100 WBC (Bld) 6.0 % 0-5 [facility] Glucose [Mass/Vol] 98 mg/dL 74-106 [facility] Neutrophils (Bld) [#/Vol] 3.6 10*3/uL 2.0-7.7 [facility] Neutrophils/100 WBC (Bld) 52.4 % 47-70 [facility] Potassium [Moles/Vol] 4.2 mmol/L 3.5-5.1 [facility] Sodium [Moles/Vol] 138 mmol/L 136-145 [facility] WBC (Bld) [#/Vol] 6.9 10*3/uL 4.4-11.0 [facility] Blood erythrocytes count (nu mber/volume)Ordered By: Mariela Olson on 01-25-2023 RBC (Bld) [#/Vol] 4.64 10*6/uL 4.6-6.2 [facility] Blood hemoglobin measurement (mass/volume)Ordered By: Mariela Olson on 01-25-2023 Hemoglobin (Bld) [Mass/Vol] 14.2 g/dL 13.0-16.5 [facility] Blood lymphocytes/100 leukoc ytesOrdered By: Mariela Olson on 01-25-2023 Lymphocytes/100 WBC (Bld) 30.4 % 19-41 [facility] Blood monocytes/100 leukocyt esOrdered By: Mariela Olson on 01-25-2023 Monocytes/100 WBC (Bld) 10.3 % 0-10 [facility] Blood platelet mean volumeOr dered By: Mariela Olson on 01-25-2023 Platelet mean volume (Bld) [Entitic vol] 10.0 fL 6.2-12.0 [facility] Determination of erythrocyte mean corpuscular volume (MCV)Ordered By: Mariela Olson on 01-25-2023 MCV (RBC) [Entitic vol] 92.7 fL 80-94 [facility] Hematocrit Auto (Bld) [Volum e fraction]Ordered By: Mariela Olson on 01-25-2023 Hematocrit (Bld) [Volume fraction] 43.0 % 40-54 [facility] - Chemistry and C hemistry - challengeOrdered By: Mariela Olson on 01-25-2023 CO2 [Moles/Vol] 28.0 mmol/L 21.0-32.0 [facility] Magnesium [Mass/Vol] 2.3 mg/dL 1.6-2.6 [facility] Urea nitrogen/Creatinine [Mass ratio] 17.7 mg/mg 10-20 [facility] - Hematology and Cell countsOrdered By: Mariela Olson on 01-25-2023 Erythrocyte distribution width (RBC) [Entitic vol] 43.2 fL 35.1-43.9 [facility] Erythrocyte distribution width (RBC) [Ratio] 12.7 % 11.6-14.6 [facility] Immature granulocytes/100 WBC (Bld) 0.300 % 0.0-0.9 [facility] Comment on above: IG% - Immature Granu locytes (promyelocytes, myelocytes and metamyelocytes) > 1% indicates that a LEFT SHIFT is Present. MCH (RBC) [Entitic mass] 30.6 pg 27.0-32.0 [facility] Nucleated RBC/100 WBC (Bld) [Ratio] 0 % 0-5 [facility] MCHC Auto (RBC) [Mass/Vol]Or dered By: Mariela Olson on 01-25-2023 MCHC (RBC) [Mass/Vol] 33.0 g/dL 32-36 [facility] No Panel InformationOrdered By: Mariela Olson on 01-25-2023 Estimated GFR (MDRD) Amer 72 mL/min >60 [facility] Comment on above: GFR Calc Estimated GFR (MDRD) Non-Af Amer 60 mL/min >60 [facility] Comment on above: Non- GFR Calc Platelets bldOrdered By: Hortencia Olson on 01-25-2023 Platelets (Bld) [#/Vol] 242 10*3/uL 150-450 [facility] Serum or plasma calcium shagufta urement (mass/volume)Ordered By: Mariela Olson on 01-25-2023 Calcium [Mass/Vol] 9.3 mg/dL 8.5-10.1 [facility] Serum or plasma creatinine m easurement (mass/volume)Ordered By: Mariela Olson on 01-25-2023 Creatinine [Mass/Vol] 1.24 mg/dL 0.70-1.30 [facility] Comment on above: The validity of the calculated GFR & GFRAA in patients over 70 years has not been determined. Clinical correlation is essential. Serum or plasma urea nitroge n measurement (mass/volume)Ordered By: Mariela Olson on 01-25-2023 Urea nitrogen [Mass/Vol] 22 mg/dL 7 [facility] Thin prep Papanicolaou smear with manual screeningOrdered By: Mariela Olson on 01-25-2023 Thin prep Papanicolaou smear with manual screening 4 12-13 [facility] Vital Signs Date Time Vital Sign Value Performing Clinician Facility 01-14-2025 09:01-0400 Body height 170.18 cm Mariela Olson [employer] Work Phone: [facility] 01-14-2025 09:01-0400 Body mass index (BMI) [Ratio] 23.5 kg/m2 Mariela Shahram [employer] Work Phone: [facility] 01-14-2025 09:01-0400 Body weight 68.03 kg Mariela Olson [employer] Work Phone: [facility] 01-09-2025 15:28-0400 Body height 170.18 cm Mariela Shahram [employer] Work Phone: [facility] 01-09-2025 15:28-0400 Body mass index (BMI) [Ratio] 24.1 kg/m2 Mariela Shahram [employer] Work Phone: [facility] 01-09-2025 15:28-0400 Body temperature 98.4 [degF] Mariela Olson [employer] Work Phone: [facility] 01-09-2025 15:28-0400 Body weight 69.9 kg Mariela Olson [employer] Work Phone: [facility] 01-09-2025 15:28-0400 Diastolic blood pressure 74 mm[Hg] Mariela Shahram [employer] Work Phone: [facility] 01-09-2025 15:28-0400 Heart rate 62 /min Mariela Shahram [employer] Work Phone: [facility] 01-09-2025 15:28-0400 SaO2% (BldA) [Mass fraction] 97 % Mariela Shahram [employer] Work Phone: [facility] 01-09-2025 15:28-0400 Systolic blood pressure 146 mm[Hg] Mariela Shahram [employer] Work Phone: [facility] 12-05-2024 14:06-0400 Diastolic blood pressure 87 mm[Hg] Mariela Shahram [employer] Work Phone: [facility] 12-05-2024 14:06-0400 Heart rate 62 /min Mariela Shahram [employer] Work Phone: [facility] 12-05-2024 14:06-0400 Respiratory rate 14 /min Mariela Shahram [employer] Work Phone: [facility] 12-05-2024 14:06-0400 SaO2% (BldA) [Mass fraction] 96 % Mariela Shahram [employer] Work Phone: [facility] 12-05-2024 14:06-0400 Systolic blood pressure 120 mm[Hg] Mariela Shahram [employer] Work Phone: [facility] 12-05-2024 08:22-0400 Body height 171.45 cm Mariela Shahram [employer] Work Phone: [facility] 12-05-2024 08:22-0400 Body mass index (BMI) [Ratio] 23.4 kg/m2 Mariela Shahram [employer] Work Phone: [facility] 12-05-2024 08:22-0400 Body temperature 98 [degF] Mariela Shahram [employer] Work Phone: [facility] 12-05-2024 08:22-0400 Body weight 68.94 kg Mariela Shahram [employer] Work Phone: [facility] 12-05-2024 08:22-0400 Diastolic blood pressure 82 mm[Hg] Mariela Shahram [employer] Work Phone: [facility] 12-05-2024 08:22-0400 Heart rate 62 /min Mariela Shahram [employer] Work Phone: [facility] 12-05-2024 08:22-0400 Respiratory rate 13 /min Mariela Shahram [employer] Work Phone: [facility] 12-05-2024 08:22-0400 SaO2% (BldA) [Mass fraction] 100 % Mariela Shahram [employer] Work Phone: [facility] 12-05-2024 08:22-0400 Systolic blood pressure 185 mm[Hg] Mariela Shahram [employer] Work Phone: [facility] 11-28-2024 11:09-0400 Body mass index (BMI) [Ratio] 24 kg/m2 Mariela Shahram [employer] Work Phone: [facility] 11-28-2024 11:09-0400 Body temperature 98.5 [degF] Mariela Shahram [employer] Work Phone: [facility] 11-28-2024 11:09-0400 Body weight 70.76 kg Mariela Shahram [employer] Work Phone: [facility] 11-28-2024 11:09-0400 Diastolic blood pressure 76 mm[Hg] Mariela Shahram [employer] Work Phone: [facility] 11-28-2024 11:09-0400 Heart rate 74 /min Mariela Shahram [employer] Work Phone: [facility] 11-28-2024 11:09-0400 Respiratory rate 16 /min Mariela Shahram [employer] Work Phone: [facility] 11-28-2024 11:09-0400 SaO2% (BldA) [Mass fraction] 100 % Mariela Shahram [employer] Work Phone: [facility] 11-28-2024 11:09-0400 Systolic blood pressure 152 mm[Hg] Mariela Shahram [employer] Work Phone: [facility] 11-20-2024 13:22-0400 Body temperature 98 [degF] Mariela Shahram [employer] Work Phone: [facility] 11-20-2024 13:22-0400 Diastolic blood pressure 81 mm[Hg] Mariela Shahram [employer] Work Phone: [facility] 11-20-2024 13:22-0400 Heart rate 86 /min Mariela Shahram [employer] Work Phone: [facility] [facility]-20-[facility]24 13:22-0400 Respiratory rate 18 /min Mariela Shahram [employer] Work Phone: [facility] 11-20-2024 13:22-0400 SaO2% (BldA) [Mass fraction] 95 % Mariela Shahram [employer]ER[employer]C Work Phone: [facility] 11-20-2024 13:22-0400 Systolic blood pressure 139 mm[Hg] Mariela Shahram [employer]ER[employer]C Work Phone: [facility] 11-19-2024 12:37-0400 Body height 171.45 cm Mariela Shahram [employer]C Work Phone: [facility] 11-19-2024 12:37-0400 Body weight 68.94 kg Mariela Shahram [employer]C Work Phone: [facility] 11-19-2024 08:57-0400 Body mass index (BMI) [Ratio] 23.4 kg/m2 Mariela Shahram [employer]ER[employer]C Work Phone: [facility] 11-18-2024 15:02-0400 Heart rate 67 /min Mariela Olson [employer]ER-C Work Phone: [facility] 11-18-2024 15:02-0400 Respiratory rate 17 /min Mariela Olson [employer]C Work Phone: [facility] 11-18-2024 15:02-0400 SaO2% (BldA) [Mass fraction] 100 % Mariela Olson [employer]C Work Phone: [facility] 11-18-2024 13:14-0400 Diastolic blood pressure 86 mm[Hg] Mariela Olson [employer]C Work Phone: [facility] 11-18-2024 13:14-0400 Systolic blood pressure 186 mm[Hg] Mariela Olson [employer]C Work Phone: [facility] 11-18-2024 09:56-0400 Body height 170.18 cm Mariela Olson [employer]C Work Phone: [facility] 11-18-2024 09:56-0400 Body mass index (BMI) [Ratio] 23.9 kg/m2 Mariela Olson [employer]C Work Phone: [facility] 11-18-2024 09:56-0400 Body temperature 97.8 [degF] Mariela Olson [employer]C Work Phone: [facility] 11-18-2024 09:56-0400 Body weight 69.39 kg Mariela Olson [employer]C Work Phone: [facility] 11-07-2024 15:00-0400 Body temperature 98.1 [degF] Mariela Olson [employer]ER[employer]C Work Phone: [facility] 11-07-2024 15:00-0400 Diastolic blood pressure 69 mm[Hg] Mariela Olson [employer]ER-C Work Phone: [facility] 11-07-2024 15:00-0400 Heart rate 79 /min Mariela Shahram [employer]ER-C Work Phone: [facility] 11-07-2024 15:00-0400 SaO2% (BldA) [Mass fraction] 99 % Mariela Shahram [employer]ER[employer]C Work Phone: [facility] 11-07-2024 15:00-0400 Systolic blood pressure 149 mm[Hg] Mariela Shahram [employer]LE [employer]ER-C Work Phone: [facility] 11-07-2024 10:48-0400 Diastolic blood pressure 66 mm[Hg] Mariela Shahram [employer]ER-C Work Phone: [facility] 11-07-2024 10:48-0400 Heart rate 88 /min Mariela Shahram [employer]ER-C Work Phone: [facility] 11-07-2024 10:48-0400 Systolic blood pressure 153 mm[Hg] Mariela Shahram [employer]LE CONDITIONER-C Work Phone: [facility] 11-07-2024 08:22-0400 Body temperature 98 [degF] Mariela Shahram [employer]LE [employer]ER-C Work Phone: [facility] 11-07-2024 08:22-0400 Respiratory rate 16 /min Mariela Shahram [employer]LE [employer]ER-C Work Phone: [facility] 11-07-2024 07:11-0400 SaO2% (BldA) [Mass fraction] 98 % Mariela Shahram [employer]LE [employer]ER-C Work Phone: [facility] 11-07-2024 03:38-0400 Body height 170.18 cm Mariela Shahram [employer]ER-C Work Phone: [facility] 11-07-2024 03:38-0400 Body mass index (BMI) [Ratio] 25.1 kg/m2 Mariela Shahram [employer]ER-C Work Phone: [facility] 11-07-2024 03:38-0400 Body weight 72.8 kg Mariela Shahram [employer]LE [employer]ER-C Work Phone: [facility] 11-06-2024 01:00-0400 Diastolic blood pressure 71 mm[Hg] Marielabruce Olson [employer]LE [employer]ER-C Work Phone: [facility] 11-06-2024 01:00-0400 Heart rate 77 /min Marielabruce Olson [employer]ER-C Work Phone: [facility] 11-06-2024 01:00-0400 Respiratory rate 18 /min Marielabruce Olson [employer]ER[employer]C Work Phone: [facility] 11-06-2024 01:00-0400 SaO2% (BldA) [Mass fraction] 99 % Mariela Olson [employer]ER-C Work Phone: [facility] 11-06-2024 01:00-0400 Systolic blood pressure 169 mm[Hg] Mariela Cifuentesgar [employer]LE CONDITIONER-C Work Phone: [facility] 11-06-2024 00:36-0400 Body temperature 98.3 [degF] Mariela Shahram [employer]LE CONDITIONER-C Work Phone: [facility] 11-05-2024 22:21-0400 Body height 170.18 cm Mariela Olson [employer]ER-C Work Phone: [facility] 11-05-2024 22:21-0400 Body mass index (BMI) [Ratio] 25.7 kg/m2 Mariela Shahram [employer]LE [employer]ER-C Work Phone: [facility] 11-05-2024 22:21-0400 Body weight 74.34 kg Mariela Shahram [employer]LE [employer]ER-C Work Phone: [facility] 10-31-2024 11:16-0400 Body mass index (BMI) [Ratio] 25.9 kg/m2 Mariela Shahram [employer]LE [employer]ER-C Work Phone: [facility] 10-31-2024 11:16-0400 Body temperature 98.4 [degF] Mariela Shahram [employer]LE [employer]ER-C Work Phone: [facility] 10-31-2024 11:16-0400 Body weight 74.89 kg Mariela Shahram [employer]LE [employer]ER-C Work Phone: [facility] 10-31-2024 11:16-0400 Diastolic blood pressure 83 mm[Hg] Mariela Shahram [employer]LE [employer]ER-C Work Phone: [facility] 10-31-2024 11:16-0400 Heart rate 71 /min Mariela Shahram [employer]LE [employer]ER-C Work Phone: [facility] 10-31-2024 11:16-0400 Respiratory rate 18 /min Mariela Shahram [employer]LE [employer]ER-C Work Phone: [facility] 10-31-2024 11:16-0400 SaO2% (BldA) [Mass fraction] 98 % Mariela Shahram [employer]LE [employer]ER-C Work Phone: [facility] 10-31-2024 11:16-0400 Systolic blood pressure 175 mm[Hg] Mariela Shahram [employer]LE [employer]ER-C Work Phone: [facility] 10-24-2024 20:51-0400 Body temperature 98 [degF] Mariela Shahram [employer]LE [employer]ER-C Work Phone: [facility] 10-24-2024 20:51-0400 Diastolic blood pressure 73 mm[Hg] Mariela Shahram [employer]LE CONDITIONER-C Work Phone: [facility] 10-24-2024 20:51-0400 Heart rate 72 /min Mariela Shahram [employer]LE [employer]ER-C Work Phone: [facility] 10-24-2024 20:51-0400 Respiratory rate 18 /min Mariela Shahram [employer]LE [employer]ER-C Work Phone: [facility] 10-24-2024 20:51-0400 SaO2% (BldA) [Mass fraction] 98 % Mariela Shahram [employer]LE [employer]ER-C Work Phone: [facility] 10-24-2024 20:51-0400 Systolic blood pressure 126 mm[Hg] Mariela Shahram [employer]LE CONDITIONER-C Work Phone: [facility] 10-24-2024 17:36-0400 Body height 170 cm Mariela Shahram [employer]LE [employer]ER-C Work Phone: [facility] 10-24-2024 17:36-0400 Body mass index (BMI) [Ratio] 26.2 kg/m2 Mariela Shahram [employer]LE [employer]ER-C Work Phone: [facility] 10-24-2024 17:36-0400 Body weight 75.79 kg Mariela Shahram [employer]LE [employer]ER-C Work Phone: [facility] 10-17-2024 14:15-0400 Body mass index (BMI) [Ratio] 26.2 kg/m2 Mariela Shahram [employer]LE [employer]ER-C Work Phone: [facility] 10-17-2024 14:15-0400 Body weight 75.74 kg Mariela Shahram [employer]LE [employer]ER-C Work Phone: [facility] 10-17-2024 14:15-0400 Diastolic blood pressure 87 mm[Hg] Mariela Shahram [employer]LE [employer]ER-C Work Phone: [facility] 10-17-2024 14:15-0400 Heart rate 60 /min Mariela Shahram [employer]ER-C Work Phone: [facility] 10-17-2024 14:15-0400 Respiratory rate 16 /min Mariela Shahram [employer]ER-C Work Phone: [facility] 10-17-2024 14:15-0400 Systolic blood pressure 148 mm[Hg] Mariela Shahram [employer]LE [employer]ER-C Work Phone: [facility] 09-07-2024 12:53-0500 Diastolic blood pressure 71 mm[Hg] Darrel Pringle MD [facility] 09-07-2024 12:53-0500 Systolic blood pressure 159 mm[Hg] Darrel Pringle MD [facility] 08-08-2024 09:55-0500 Body mass index (BMI) [Ratio] 26.9 kg/m2 Mariela Shaharm [employer]LE CONDITIONER-C Work Phone: [facility] 08-08-2024 09:55-0500 Body temperature 98.5 [degF] Mariela Shahram [employer]LE [employer]ER-C Work Phone: [facility] 08-08-2024 09:55-0500 Body weight 78.18 kg Mariela Shahram [employer]ER-C Work Phone: [facility] 08-08-2024 09:55-0500 Diastolic blood pressure 90 mm[Hg] Mariela Shahram [employer]LE [employer]ER-C Work Phone: [facility] 08-08-2024 09:55-0500 Heart rate 81 /min Mariela Shahram [employer]ER-C Work Phone: [facility] 08-08-2024 09:55-0500 Respiratory rate 18 /min Mariela Shahram [employer]ER-C Work Phone: [facility] 08-08-2024 09:55-0500 SaO2% (BldA) [Mass fraction] 99 % Mariela Shahram [employer]ER-C Work Phone: [facility] 08-08-2024 09:55-0500 Systolic blood pressure 196 mm[Hg] Mariela Shahram [employer]LE [employer]ER-C Work Phone: [facility] 07-18-2024 09:20-0500 Body mass index (BMI) [Ratio] 26.5 kg/m2 Mariela Shahram [employer]ER-C Work Phone: [facility] 07-18-2024 09:20-0500 Body temperature 97.8 [degF] Mariela Shahram [employer]LE [employer]ER-C Work Phone: [facility] 07-18-2024 09:20-0500 Body weight 76.91 kg Mariela Shahrma [employer]LE [employer]ER-C Work Phone: [facility] 07-18-2024 09:20-0500 Diastolic blood pressure 88 mm[Hg] Mariela Shahram [employer]LE CONDITIONER-C Work Phone: [facility] 07-18-2024 09:20-0500 Heart rate 71 /min Mariela Shahram [employer]LE [employer]ER-C Work Phone: [facility] 07-18-2024 09:20-0500 Respiratory rate 16 /min Marielabruce Olson [employer]LE CONDITIONER-C Work Phone: [facility] 07-18-2024 09:20-0500 SaO2% (BldA) [Mass fraction] 97 % Marielabruce Olson [employer]LE CONDITIONER-C Work Phone: [facility] 07-18-2024 09:20-0500 Systolic blood pressure 193 mm[Hg] Mariela Shahram [employer]LE CONDITIONER-C Work Phone: [facility] 07-04-2024 14:18-0500 Body mass index (BMI) [Ratio] 26.4 kg/m2 Mariela Shahram [employer]ER-C Work Phone: [facility] 07-04-2024 14:18-0500 Body temperature 98.2 [degF] Mariela Cifuentesgar [employer]LE CONDITIONER-C Work Phone: [facility] 07-04-2024 14:18-0500 Body weight 76.43 kg Mariela Olson [employer]LE CONDITIONER-C Work Phone: [facility] 07-04-2024 14:18-0500 Diastolic blood pressure 75 mm[Hg] Mariela Cifuentesgar [employer]LE CONDITIONER-C Work Phone: [facility] 07-04-2024 14:18-0500 Heart rate 58 /min Mariela Shahram [employer]ER-C Work Phone: [facility] 07-04-2024 14:18-0500 Respiratory rate 18 /min Mariela Cifuentesgar [employer]LE [employer]ER-C Work Phone: [facility] 07-04-2024 14:18-0500 SaO2% (BldA) [Mass fraction] 100 % Mariela Shahram [employer]LE [employer]ER-C Work Phone: [facility] 07-04-2024 14:18-0500 Systolic blood pressure 165 mm[Hg] Mariela Cifuentesgar [employer]LE [employer]ER-C Work Phone: [facility] 12-11-2023 08:05-0400 Body temperature 97.9 [degF] Dr. Neville Islas Work Phone: [facility] 12-11-2023 08:05-0400 Diastolic blood pressure 70 mm[Hg] Dr. Neville Islas Work Phone: [facility] 12-11-2023 08:05-0400 Heart rate 59 /min Dr. Neville Islas Work Phone: [facility] 12-11-2023 08:05-0400 Respiratory rate 13 /min Dr. Neville Islas Work Phone: [facility] 12-11-2023 08:05-0400 SaO2% (BldA) [Mass fraction] 95 % Dr. Neville Islas Work Phone: [facility] 12-11-2023 08:05-0400 Systolic blood pressure 151 mm[Hg] Dr. Neville Islas Work Phone: [facility] 12-11-2023 02:39-0400 Body height 172.[address] Neville Islas Work Phone: [facility] 12-11-2023 02:39-0400 Body mass index (BMI) [Ratio] 29 kg/m2 Dr. Neville Islas Work Phone: [facility] 12-11-2023 02:39-0400 Body weight 86.[address] Neville Islas Work Phone: [facility] 08-16-2023 16:10-0500 Body temperature 97.7 [degF] Dr. Neville Islas Work Phone: [facility] 08-16-2023 16:10-0500 Diastolic blood pressure 69 mm[Hg] Dr. Neville Islas Work Phone: [facility] 08-16-2023 16:10-0500 Heart rate 64 /min Dr. Neville Islas Work Phone: [facility] 08-16-2023 16:10-0500 Respiratory rate 18 /min Dr. Neville Islas Work Phone: [facility] 08-16-2023 16:10-0500 SaO2% (BldA) [Mass fraction] 100 % Dr. Neville Islas Work Phone: [facility] 08-16-2023 16:10-0500 Systolic blood pressure 154 mm[Hg] Dr. Neville Islas Work Phone: [facility] 08-16-2023 13:54-0500 Body weight 78.[address] Neville Islas Work Phone: [facility] 08-15-2023 22:26-0500 Body mass index (BMI) [Ratio] 25.5 kg/m2 Dr. Neville Islas Work Phone: [facility] 08-15-2023 21:10-0500 Diastolic blood pressure 80 mm[Hg] [facility] 08-15-2023 21:10-0500 Heart rate 71 /min [facility] 08-15-2023 21:10-0500 Respiratory rate 18 /min [facility] 08-15-2023 21:10-0500 SaO2% (BldA) [Mass fraction] 98 % [facility] 08-15-2023 21:10-0500 Systolic blood pressure 187 mm[Hg] [facility] 08-15-2023 14:37-0500 Body height 172.72 cm [facility] 08-15-2023 14:37-0500 Body mass index (BMI) [Ratio] 27.3 kg/m2 [facility] 08-15-2023 14:37-0500 Body temperature 95.5 [degF] [facility] 08-15-2023 14:37-0500 Body weight 81.6 kg [facility] Encounters Encounter Date Encounter Type Care Provider Facility Start: 02-07-2025 End: 02-07-2025 [facility] Start: 01-18-2025 Encounter for preprocedural cardiovascular examination [facility] Start: 01-14-2025 End: 01-14-2025 ambulatory Mariela Shahram [employer]LE [employer]ER-C Work Phone: [facility] Work Phone: Start: 01-14-2025 End: 01-14-2025 Dr. Adrian Flores MD -Face Boss/Special Procedures Work Phone: Start: 01-14-2025 End: 01-14-2025 ambulatory Adrian Flores Facility:[facility] Start: 01-11-2025 ambulatory Darrel Pringle [facility] Start: 01-09-2025 End: 01-09-2025 Dr. Brenda Araujo MD -[facility] Work Phone: Start: 01-09-2025 End: 01-09-2025 ambulatory Mariela Olson SOLE CONDITIONER-C Work Phone: [facility] Work Phone: Start: 01-06-2025 ambulatory Adrian Flores Facility:[facility] Start: 01-06-2025 Dr. Adrian Flores MD -[facility] Start: 12-14-2024 End: 12-14-2024 ambulatory Mariela Shahram SOLE CONDITIONER-C Work Phone: [facility] Work Phone: Start: 12-14-2024 End: 12-14-2024 Malinda Webster SOLE CONDITIONER-C -Laboratory Work Phone: Start: 12-14-2024 End: 12-14-2024 ambulatory Malinda Webster SOLE CONDITIONER Facility:[facility] Start: 12-11-2024 Encounter for preprocedural laboratory examination Brenda Araujo [facility] Start: 12-05-2024 End: 12-05-2024 ambulatory Mariela Olson [employer]LE CONDITIONER-C Work Phone: [facility] Work Phone: Start: 12-05-2024 End: 12-05-[address] Brenda Araujo MD -[facility] Work Phone: Start: 12-05-2024 End: 12-05-2024 Dr. Brenda GarciaCat Scan, [facility] Work Phone: Start: 12-04-2024 End: 12-04-2024 Patient encounter procedure Ari Silvestre [facility] Work Phone: Start: 12-04-2024 End: 12-04-2024 Arijerry Silvestre [facility] Work Phone: Start: 12-04-2024 End: 12-05-2024 ambulatory [facility] Facility:[facility] Start: 11-30-2024 End: 11-30-2024 ambulatory Mariela Olson SOLE CONDITIONER-C Work Phone: [facility] Work Phone: Start: 11-30-2024 End: 11-30-[address] Brenda GarciaCat Scan, [facility] Work Phone: Start: 11-30-2024 End: 11-30-2024 Dr. Brenda Araujo MD -Cat Scan, [facility] Work Phone: Start: 11-30-2024 End: 11-30-2024 ambulatory [facility] Facility:[facility] Start: 11-28-2024 ambulatory Adrian Flores Facility:[facility] Start: 11-28-2024 Non-patient / Non-visit Dr. Norberto DAVIS -[facility] Start: 11-28-2024 End: 11-28-2024 Patient encounter procedure Malinda Webster SOLE CONDITIONER-C -Cardiovascular Services Work Phone: Start: 11-28-2024 End: 11-28-2024 Dr. Adrian Flores MD -[facility] Start: 11-28-2024 End: 11-28-[address] Brenda Araujo MD -[facility] Work Phone: Start: 11-28-2024 End: 11-28-2024 Dr. Brenda Araujo MD -[facility] Work Phone: Start: 11-28-2024 End: 11-28-2024 ambulatory Mariela Olson Facility:[facility] Start: 11-28-2024 End: 11-28-2024 ambulatory Malinda Webster NP Facility:[facility] Start: 11-20-2024 Non-patient / Non-visit Dr. Kalen Jang [facility] Work Phone: Start: 11-20-2024 Dr. Neville singh [facility] Work Phone: Start: 11-19-2024 Non-patient / Non-visit Dr. Kalen Jang [facility] Work Phone: Start: 11-19-2024 Dr. Neville singh DO [facility] Work Phone: Start: 11-19-2024 Non-patient / Non-visit Ari Sage nd DO -[facility] Start: 11-19-2024 Ari Silvestre DO -[facility] Start: 11-18-2024 Non-patient / Non-visit Dr. Marybel Schrader MD -[facility] Work Phone: Start: 11-18-2024 ambulatory Kelvin Schrader Fac ility:[facility] Start: 11-18-2024 End: 11-20-2024 Evaluation and management of inpatient Dr. Kelvin Schrader MD -[facility] 3 Work Phone: Start: 11-18-2024 End: 11-20-2024 Dr. Neville Jang DO [facility] Work Phone: Start: 11-09-2024 ambulatory Darrel Pringle [facility] [place] Start: 11-09-2024 Office outpatient vi sit 25 minutes Darrel Pringle [facility] [place] Start: 11-07-2024 Non-patient / Non-visit Dr. Stevie francis [facility] Work Phone: Start: 11-07-2024 Dr. Stevie MOREJONWo [facility] Work Phone: Start: 11-07-2024 End: 11-07-2024 ambulatory Adrian Flores Facility:[facility] Start: 11-07-2024 End: 11-07-2024 Non-patient / Non-visit Dr. Adrian [facility] Work Phone: Start: 11-07-2024 End: 11-07-2024 Dr. [facility] Work Phone: Start: 11-06-2024 Non-patient / Non-visit Ari Sage nd DO -[facility] Start: 11-06-2024 Ari Silvestre DO -[facility] Start: 11-06-2024 ambulatory [facility] Facility[facility] Start: 11-06-2024 End: 11-07-2024 Evaluation and management [...] Work Phone: Start: 10-31-2024 End: 10-31-2024 ambulatory [facility] Facility:[facility] Start: 10-24-2024 End: 10-24-2024 Dr. Jerry Hightower DO -Emergency Department Work Phone: Start: 10-24-2024 End: 10-24-2024 Emergency department patient visit Mariela Shahram [employer]LE [employer]ER-C Work Phone: -Emergency Department Work Phone: Start: 10-24-2024 End: 10-24-[address] [facility] Start: 10-24-[address] Papi Hernandez MD -[facility] Start: 10-24-2024 End: 10-24-2024 Dr. Papi Hernandez MD -[facility] Start: 10-24-2024 End: 10-24-2024 [facility] Work Phone: [facility] Work Phone: Start: 10-24-2024 End: 10-24-2024 ambulatory [facility] Facility:[facility] Start: 10-17-2024 End: 10-17-2024 ambulatory [facility] SOLE CONDITIONER-C Work Phone: [facility] Work Phone: Start: 10-17-2024 End: 10-17-2024 Patient encounter procedure Malinda Webster SOLE CONDITIONER-C -Laboratory Work Phone: Start: 10-17-2024 End: 10-17-2024 Malinda Webster SOLE CONDITIONER-C -Laboratory Work Phone: Start: 10-17-2024 End: 10-17-2024 Patient encounter procedure Malinda Webster SOLE CONDITIONER-C -[facility] Work Phone: Start: 10-17-2024 End: 10-17-2024 Malinda Webster SOLE CONDITIONER-C -[facility] Work Phone: Start: 10-17-2024 End: 10-17-2024 ambulatory [facility] Facility:[facility] Start: 10-17-2024 End: 10-17-2024 ambulatory [facility] Facility:[facility] Start: 09-07-2024 End: 09-07-2024 Darrel Pringle Work Phone: [facility] [place] Start: 09-07-2024 ambulatory Darrel Pringle [facility] [place] Start: 09-05-2024 End: 09-05-2024 Patient encounter procedure Mariela Olson SOLE CONDITIONER-C -Laboratory, [facility] Start: 09-05-2024 End: 09-05-2024 Mariela Olson SOLE CONDITIONER-C -Laboratory, [facility] Start: 09-05-2024 End: 09-05-2024 ambulatory Mariela Shahram Facility:[facility] Start: 08-08-2024 End: 08-08-[address] Papi Hernandez MD -[facility] Work Phone: Start: 08-08-2024 End: 08-08-2024 Dr. Papi Hernandez MD -[facility] Work Phone: Start: 08-08-2024 End: 08-08-2024 ambulatory Mariela Olson Facility:[facility] Start: 07-18-2024 End: 07-18-2024 Patient encounter procedure Selam Craig NP-C -[facility] Work Phone: Start: 07-18-2024 End: 07-18-2024 ambulatory Mariela Olson Facility:[facility] Start: 07-13-2024 End: 07-13-2024 Darrel Pringle Work Phone: [facility] Start: 07-13-2024 ambulatory Darrel Pringle [facility] [place] Start: 07-04-2024 End: 07-04-[address] Papi Hernandez MD -[facility] Work Phone: Start: 07-04-2024 End: 07-04-2024 ambulatory Marielabruce Olson Facility:[facility] Start: 07-04-2024 Encounter for other preprocedural examination [facility] Start: 06-25-2024 Encounter for other preprocedural examination Du Thomas [facility] Start: 06-22-2024 ambulatory Du Thomas Facility: [facility] Start: 06-22-2024 End: 06-22-2024 ambulatory Du Thomas Facility:[facility] Start: 06-20-2024 End: 06-20-2024 ambulatory Du Thomas Facility:[facility] Start: 06-18-2024 ambulatory Mariela Shahram [facility] Start: 06-12-2024 End: 06-12-2024 ambulatory Mariela Shahram Facility:[facility] Start: 06-08-2024 End: 06-10-2024 Evaluation and management of inpatient Lucy Polanco Facility:[facility] Start: 06-08-2024 ambulatory Lucy Polanco Facility:[facility] Start: 06-07-2024 End: 06-07-2024 Emergency department patient visit Jerry Hightower Facility:[facility] Start: 06-07-2024 End: 06-08-2024 ambulatory Mariela Shahram Facility:[facility] Start: 05-31-2024 End: 05-31-2024 ambulatory Mariela Olson Facility:[facility] Start: 05-25-2024 End: 05-25-2024 Darrel Pringle Work Phone: [facility] Start: 05-25-2024 ambulatory Darrel Pringle [facility] Start: 05-16-2024 End: 05-16-2024 ambulatory Mariela Olson Facility:[facility] Start: 05-10-2024 End: 05-10-2024 ambulatory Du Thomas Facility:[facility] Start: 05-07-2024 End: 05-07-2024 ambulatory Mariela Olson Facility:[facility] Start: 04-27-2024 ambulatory Du Thomas Facility: [facility] Start: 04-27-2024 End: 05-01-2024 Evaluation and management of inpatient Du Thomas Facility:[facility] Start: 04-27-2024 ambulatory Du Thomas Facility: [facility] Start: 04-25-2024 Encounter for preprocedural cardiovascular examination Adriankaitlin Flores [facility] Start: 04-25-2024 End: 04-25-2024 ambulatory Mariela Olson [facility] Start: 04-23-2024 Patient encounter status Mariela Olson [employer] Work Phone: [facility] Comment on above: Right hemicolectomy 04/27/2024 Start: 04-20-2024 End: 04-20-2024 ambulatory Mariela Olson [facility] Start: 04-13-2024 ambulatory Ari Silvestre Facility [facility] Start: 04-13-2024 ambulatory Len Staton [facility] Start: 04-12-2024 End: 04-12-2024 ambulatory Mariela Olson [facility] Start: 04-12-2024 ambulatory Darrel Carpenter Facili ty:[facility] Start: 04-12-2024 End: 04-15-2024 Evaluation and management of inpatient Darrel Carpenter Facility:[facility] Start: 04-11-2024 End: 04-11-2024 ambulatory Mariela Olson Facility:[facility] Start: 03-30-2024 End: 03-30-2024 Darrel Pringle Work Phone: [facility] Start: 03-30-2024 ambulatory Darrel Pringle [facility] Start: 02-15-2024 End: 02-15-2024 ambulatory Lisandragary Lazcano Facility:[facility] Start: 02-10-2024 End: 02-10-2024 Darrel Pringle Work Phone: [facility] Start: 02-03-2024 End: 02-03-2024 ambulatory Neville Islas Facility:[facility] Start: 12-21-2023 End: 12-21-2023 Darrel Pringle Work Phone: [facility] Start: 12-11-2023 End: 12-11-2023 Emergency department patient visit Dr. Neville Islas Work Phone: [facility]Emergency Department Work Phone: Start: 10-26-2023 End: 10-26-2023 Darrel Pringle Work Phone: [facility] Start: 08-24-2023 End: 08-24-2023 Darrel Pringle Work Phone: [facility] Start: 08-22-2023 End: 08-22-[address] Neville Islas Work Phone: [facility] Start: 08-16-2023 Non-patient / Non-visit Dr. Kalen Islas Work Phone: [facility] Work Phone: Start: 08-16-2023 Non-patient / Non-visit Dr. Kalen Islas Work Phone: [facility] Start: 08-16-2023 Non-patient / Non-visit Dr. Kalen Islas Work Phone: [facility] Start: 08-15-2023 End: 08-15-2023 Non-patient / Non-visit Dr. Neville Islas Work Phone: [facility] Work Phone: Start: 08-15-2023 End: 08-16-2023 Evaluation and management of inpatient [facility] Work Phone: Start: 08-15-2023 Non-patient / Non-visit Dr. Kalen Islas Work Phone: [facility] Work Phone: Start: 06-29-2023 End: 06-29-2023 Darrel Pringle Work Phone: [facility] Start: 05-11-2023 End: 05-11-2023 Darrel Pringle Work Phone: [facility] Start: 03-30-2023 End: 03-30-2023 Darrel Pringle Work Phone: [facility] Start: 02-23-2023 End: 02-23-2023 Darrel Pringle Work Phone: [facility] Start: 01-25-2023 End: 01-25-2023 ambulatory [facility] Work Phone: Start: 01-25-2023 End: 01-25-2023 Patient encounter procedure [facility] Start: 01-19-2023 End: 01-19-2023 Darrel Pringle Work [...] encounter status Beata Herrera MD Work Phone: [facility] Work Phone: Procedures Date Procedure Procedure Detail Performing Clinician Start: 01-11-2025 Computerized ophthalmic imaging retina Darrel Pringle Start: 01-11-2025 Eylea 1mg Pre-filled Syringe Darrel howard Start: 01-11-2025 Intravitreal njx pharmacologic agt spx Darrel Pringle Start: 01-08-2025 Blood count smear mcrscp w/mnl difrntl wbc count Mariela Olson [employer] Work Phone: Start: 01-08-2025 Mean corpuscular hemoglobin concentration determination Mariela Olson [employer] Work Phone: Start: 01-08-2025 Nucleated red blood cell count procedure Mariela Olson [employer] Work Phone: Start: 01-08-2025 Platelet mean volume determination Mariela Olson [employer] Work Phone: Start: 12-14-2024 X-ray of chest, PA and lateral views Mariela Olson [employer] Work Phone: Start: 12-14-2024 Blood count smear mcrscp w/mnl difrntl wbc count Marielabruce Olson [employer] Work Phone: Start: 12-14-2024 Mean corpuscular hemoglobin concentration determination Mariela Olson [employer] Work Phone: Start: 12-14-2024 Nucleated red blood cell count procedure Mariela Olson [employer] Work Phone: Start: 12-14-2024 Platelet mean volume determination Mariela Olson [employer] Work Phone: Start: 12-14-2024 Total iron binding capacity measurement Mariela Olson [employer] Work Phone: Start: 12-05-2024 Biopsy/Inj or Needle Placement Mariela burrell [employer] Work Phone: Start: 12-05-2024 Mariela Olson [employer] Work Phone: Start: 12-05-2024 Blood count smear mcrscp w/mnl difrntl wbc count Mariela Olson [employer] Work Phone: Start: 12-05-2024 Calculation of international normalized ratio Mariela Olson [employer] Work Phone: Start: 12-05-2024 Mean corpuscular hemoglobin concentration determination Mariela Olson [employer] Work Phone: Start: 12-05-2024 Nucleated red blood cell count procedure Mariela Olson [employer] Work Phone: Start: 12-05-2024 Platelet mean volume determination Mariela Olson [employer] Work Phone: Start: 11-30-2024 CT of thorax with contrast Mariela Olson [employer] Work Phone: Start: 11-20-2024 Blood count smear mcrscp w/mnl difrntl wbc count Mariela Olson [employer] Work Phone: Start: 11-20-2024 Mean corpuscular hemoglobin concentration determination Mariela Olson [employer] Work Phone: Start: 11-20-2024 Nucleated red blood cell count procedure Mariela Olson [employer] Work Phone: Start: 11-20-2024 Platelet mean volume determination Mariela Olson [employer] Work Phone: Start: 11-19-2024 Colonoscopy Mariela Olson [employer] Work Phone: Start: 11-19-2024 Estimated creatinine clearance Mariela burrell [employer] Work Phone: Start: 11-18-2024 Computed tomography of abdomen and pelvis with intravenous contrast Mariela Olson [employer] Work Phone: Start: 11-09-2024 Computerized ophthalmic imaging retina Darrel Pringle Start: 11-09-2024 Eylea Free Drug Darrel Pringle Start: 11-09-2024 Intravitreal njx pharmacologic agt spx Darrel Pringle Start: 11-07-2024 Blood count smear mcrscp w/mnl difrntl wbc count Mariela Olson [employer] Work Phone: Start: 11-07-2024 Estimated creatinine clearance Mariela burrell [employer] Work Phone: Start: 11-07-2024 Mean corpuscular hemoglobin concentration determination Mariela Olson [employer] Work Phone: Start: 11-07-2024 Nucleated red blood cell count procedure Mariela Olson [employer] Work Phone: Start: 11-07-2024 Platelet mean volume determination Mariela Olson [employer] Work Phone: Start: 11-06-2024 Flexible fiberoptic sigmoidoscopy Mariela Olson [employer] Work Phone: Start: 11-06-2024 Clostridium difficile detection Mariela cruz [employer] Work Phone: Start: 11-06-2024 Lactoferrin measurement Mariela Olson [employer] Work Phone: Start: 11-06-2024 Nucleic acid assay Mariela Cifuentesgar [employer] Work Phone: Start: 11-06-2024 Ova OR parasites identification Mariela gamezar [employer] Work Phone: Start: 11-06-2024 Ova&parasites direct smears concentration & id Mariela Olson [employer] Work Phone: Start: 11-06-2024 Iadna-dna/rna gi pthgn multiplex probe tq 6-11 Mariela Cifuentesgar [employer] Work Phone: Start: 11-06-2024 Osmolality measurement, serum Mariela Schwartz ar [employer] Work Phone: Start: 11-06-2024 Serum inorganic phosphate measurement Mariela Cifuentesgar [employer] Work Phone: Start: 11-06-2024 Total iron binding capacity measurement Mariela Cifuentesgar [employer] Work Phone: Start: 11-05-2024 Computed tomography of abdomen and pelvis with contrast Mariela Olson [employer] Work Phone: Start: 11-05-2024 Assay of lactate Mariela Olson [employer] Work Phone: Start: 11-05-2024 Calculation of international normalized ratio Mariela Cifuentesgar [employer] Work Phone: Start: 11-05-2024 Measurement of occult blood in stool specimen using immunoassay Mariela Olson [employer] Work Phone: Start: 10-24-2024 Urine microscopy: red cells Mariela Olson [employer] Work Phone: Start: 10-24-2024 Urnls dip stick/tablet reagent auto microscopy Mariela Shahram [employer] Work Phone: Start: 10-24-2024 Blood count smear mcrscp w/mnl difrntl wbc count Mariela Olson [employer] Work Phone: Start: 10-24-2024 Estimated creatinine clearance Mariela burrell [employer] Work Phone: Start: 10-24-2024 Mean corpuscular hemoglobin concentration determination Mariela Olson [employer] Work Phone: Start: 10-24-2024 Nucleated red blood cell count procedure Marieal Olson [employer] Work Phone: Start: 10-24-2024 Platelet mean volume determination Mariela Olson [employer] Work Phone: Start: 10-24-2024 Triacylglycerol lipase measurement Mariela Olson [employer] Work Phone: Start: 10-24-2024 Ultrasound of scrotum with Doppler and color flow imaging Mariela Olson [employer] Work Phone: Start: 10-24-2024 Computed tomography of abdomen and pelvis with intravenous contrast Mariela Olson [employer] Work Phone: Start: 10-24-2024 Carcinoembryonic antigen cea Mariela guzman [employer] Work Phone: Comment on above: Nonsmokers <3.9 Smokers <5.6[employer] Electrochemiluminescence Immunoassay(ECLIA)Values obtained with different assay methods or kitscannot be used interchangeably. Results cannot beinterpreted as absolute evidence of the presence orabsence of malignant disease.Performed at: [address] [id number] Director: Jian Paredes PhD, Phone: [phone] Start: 10-24-2024 Estimated creatinine clearance Mariela burrell [employer] Work Phone: Start: 10-24-2024 Mean corpuscular hemoglobin concentration determination Mariela Olson [employer] Work Phone: Start: 10-24-2024 Nucleated red blood cell count procedure Mariela Olson [employer] Work Phone: Start: 10-24-2024 Platelet mean volume determination Mariela Olson [employer] Work Phone: Start: 10-24-2024 Procedure Mariela Olson [employer] Work Phone: Start: 10-17-2024 Urine microscopy: red cells Mariela Olson [employer] Work Phone: Start: 10-17-2024 Urnls dip stick/tablet reagent auto microscopy Mariela Olson [employer] Work Phone: Start: 09-07-2024 End: 09-07-2024 Computerized ophthalmic imaging retina Darrel Pringle MD Start: 09-07-2024 End: 09-07-2024 Eylea 1mg Pre-filled Syringe Darrel howard MD Start: 09-07-2024 Eylea 1mg Pre-filled Syringe Darrel howard Start: 09-07-2024 End: 09-07-2024 Eylea Free Drug Darrel Pringle MD Start: 09-07-2024 End: 09-07-2024 Intravitreal njx pharmacologic agt spx Darrel Pringle MD Start: 09-05-2024 Albumin/Globulin ratio Mariela Olson [employer] Work Phone: Start: 09-05-2024 Anion gap measurement Mariela Olson [employer] Work Phone: Start: 09-05-2024 Blood count smear mcrscp w/mnl difrntl wbc count Mariela Olson [employer] Work Phone: Start: 09-05-2024 BUN/Creatinine ratio Mariela Olson [employer] Work Phone: Start: 09-05-2024 Mean corpuscular hemoglobin concentration determination Mariela Olson [employer] Work Phone: Start: 09-05-2024 Measurement of renal function Mariela vaca [employer] Work Phone: Comment on above: GFR Calc Start: 09-05-2024 Nucleated red blood cell count procedure Mariela Olson [employer] Work Phone: Start: 09-05-2024 Platelet mean volume determination Mariela Olson [employer] Work Phone: Start: 07-18-2024 Carcinoembryonic antigen cea Mariela Ryder r [employer] Work Phone: Comment on above: Nonsmokers <3.9 Smokers <5.6[employer] Electrochemiluminescence Immunoassay(ECLIA)Values obtained with different assay methods or kitscannot be used interchangeably. Results cannot beinterpreted as absolute evidence of the presence orabsence of malignant disease.Performed at: [employer] [address] [id number] Director: Jian Paredes PhD, Phone: [phone] Start: 07-18-2024 Measurement of renal function Mariela vaca [employer] Work Phone: Comment on above: GFR Calc Start: 07-13-2024 End: 07-13-2024 Computerized ophthalmic imaging retina Darrel Pringle MD Start: 07-13-2024 End: 07-13-2024 Eylea Free Drug Darrel Pringle MD Start: 07-13-2024 Eylea Free Drug Darrel Pringle Start: 07-13-2024 End: 07-13-2024 Intravitreal njx pharmacologic agt spx Darrel Pringle MD Start: 07-04-2024 Calculation of international normalized ratio Mariela Olson [employer] Work Phone: Start: 05-29-2024 Positron emission tomography with computed tomography Mariela Olson [employer] Work Phone: Start: 05-25-2024 End: 05-25-2024 Computerized ophthalmic imaging retina Darrel Pringle MD Start: 05-25-2024 End: 05-25-2024 Eylea Free Drug Darrel Pringle MD Start: 05-25-2024 Eylea Free Drug Darrel Pringle Start: 05-25-2024 End: 05-25-2024 Intravitreal njx pharmacologic agt spx Darrel Pringle MD Start: 05-16-2024 Ferritin measurement Mariela Olson [employer] Work Phone: Start: 05-16-2024 Immature reticulocyte fraction Mariela burrell [employer] Work Phone: Start: 05-16-2024 Total iron binding capacity measurement Mariela Olson [employer] Work Phone: Start: 03-30-2024 End: 03-30-2024 Computerized [...] bypass grafting Hx of CABG Malinda Webster [employer] Comment on above: FUNG in situ mammary [...] 04-01-2025 Influenza vaccination Influenza Vaccine (Season Ended) [facility] Start: 01-14-2025 Patient discharge [facility] Start: 01-09-2025 Patient referral [facility] Work Phone: Start: 12-05-2024 Catheterization of vein [facility] Start: 12-05-2024 Oxygen therapy [facility] Start: 12-05-2024 Patient discharge [facility] Start: 12-05-2024 Vital signs measurements [facility] Start: 12-05-2024 Following clinical pathway protocol [facility] Start: 12-05-2024 [facility] Start: 11-20-2024 Patient discharge [facility] Start: 11-18-2024 Application of intermittent pneumatic compression device [facility] Start: 11-18-2024 Following clinical pathway protocol [facility] Start: 11-18-2024 Ambulation without limitation [facility] Start: 11-18-2024 Assessment of risk of venous thromboembolism [facility] Start: 11-18-2024 Insertion of catheter into peripheral vein [facility] Start: 11-18-2024 Providing care according to standard [facility] Start: 11-18-2024 Referral to gastroenterology service [facility] Start: 11-18-2024 [facility] Start: 11-18-2024 Verification routine [facility] Start: 11-18-2024 Admission procedure [facility] Start: 11-18-2024 Patient referral to dietitian [facility] Start: 11-09-2024 Jared Raymond 8 Weeks/ / MAY/ POSS EYLEA/ PAP [facility] Work Phone: Start: 11-07-2024 Patient discharge [facility] Start: 11-07-2024 Care planning and problem solving actions [facility] Start: 11-06-2024 Ova and Parasites Ova and Parasites [facility] Start: 11-06-2024 Enteric precautions [facility] Start: 11-06-2024 Application of intermittent pneumatic compression device [facility] Start: 11-06-2024 Following clinical pathway protocol [facility] Start: 11-06-2024 Assessment of risk of venous thromboembolism [facility] Start: 11-06-2024 Documentation procedure [facility] Start: 11-06-2024 Insertion of catheter into peripheral vein [facility] Start: 11-06-2024 Measuring intake and output [facility] Start: 11-06-2024 Oxygen therapy [facility] Start: 11-06-2024 Providing care according to standard [facility] Start: 11-06-2024 Provision of activity privileges [facility] Start: 11-06-2024 Referral to gastroenterology service [facility] Start: 11-06-2024 Referral to service [facility] Start: 11-06-2024 [facility] Start: 11-06-2024 Admission procedure [facility] Start: 11-06-2024 Verification routine [facility] Start: 11-06-2024 Hospital admission, emergency, from emergency room, medical nature [facility] Start: 11-06-2024 Patient referral to dietitian [facility] Start: 11-06-2024 [facility] Start: 10-24-2024 [facility] Start: 10-24-2024 [facility] Start: 09-07-2024 Smoking cessation education Tobacco cessation counseling [facility] Start: 08-01-2024 Advance Directive Discussion Advance Directive Discussion [facility] Start: 07-13-2024 Smoking cessation education Tobacco cessation counseling [facility] Start: 07-04-2024 Patient referral [facility] Work Phone: Start: 04-01-2024 Covid-19 Vaccine ( season) Covid-19 Vaccine () [facility] Start: 03-30-2024 Smoking cessation education Tobacco cessation counseling [facility] Start: 02-10-2024 Smoking cessation education Tobacco cessation counseling [facility] Start: 12-21-2023 Smoking cessation education Tobacco cessation counseling [facility] Start: 12-11-2023 [facility] Start: 08-16-2023 Patient discharge [facility] Start: 08-15-2023 Following clinical pathway protocol [facility] Start: 08-15-[address] [facility] Start: 08-15-2023 [facility] Start: 08-15-2023 Admission procedure [facility] Start: 08-15-2023 Hospital admission, emergency, from emergency room, medical nature [facility] Start: 08-15-2023 Patient referral to dietitian [facility] Start: 06-29-2023 Smoking cessation education Tobacco cessation counseling [facility] Start: 05-11-2023 Smoking cessation education Tobacco cessation counseling [facility] Start: 05-05-2023 DIABETES SCREEN DIABETES SCREEN [facility] Start: 05-05-2023 Diabetes Screening Diabetes Screening [facility] Start: 03-30-2023 Smoking cessation education Tobacco cessation counseling [facility] Start: 01-19-2023 Smoking cessation education Tobacco cessation counseling [facility] Start: 12-08-2022 Smoking cessation education Tobacco cessation counseling [facility] Start: 09-29-2022 Smoking cessation education Tobacco cessation counseling [facility] Start: 09-01-2022 Smoking cessation education Tobacco cessation counseling [facility] Start: 04-01-2022 Influenza vaccination INFLUENZA (#1) [facility] Start: 08-01-2021 ADVANCE DIRECTIVE DISCUSSION ADVANCE DIRECTIVE DISCUSSION [facility] Start: 05-05-2021 Hepatitis B surface antibody level LDL CHOLESTEROL [facility] Start: 08-03-2020 ANNUAL PCP TEAM CHRONIC DISEASE VISIT ANNUAL PCP TEAM CHRONIC DISEASE VISIT [facility] Start: 07-20-2020 Adult depression screening assessment DEPRESSION SCREENING [facility] Start: 2019 RSV Vaccine (1 - 1-dose 75+ series) RSV Vaccine (1 - 1-dose 75+ series) [facility] Start: 03-01-2009 Medicare Annual Wellness Visit Medicare Annual Wellness Visit [facility] Start: 1994 Pneumococcal Vaccine: 50+ (1 of 1 - PCV) Pneumococcal Vaccine: 50+ (1 of 1 - PCV) [facility] Start: 1994 SHINGRIX VACCINE (1 of 2) SHINGRIX VACCINE (1 of 2) [facility] Start: 1963 [facility] Start: 1962 Annual PCP Team Chronic Disease Visit Annual PCP Team Chronic Disease Visit [facility] Start: 1962 Anxiety Screening Anxiety Screening [facility] Start: 1962 BP CONTROLLED (<130/80) BP CONTROLLED (<130/80) [facility] Start: 1962 Depression Screening Depression Screening [facility] Start: 1962 HEPATITIS C SCREENING HEPATITIS C SCREENING [facility] Start: 1950 PNEUMOCOCCAL: 65+ (1 - PCV) PNEUMOCOCCAL: 65+ (1 - PCV) [facility] Start: 1944 COVID-19 VACCINE (#1) COVID-19 VACCINE (#1) [facility] Anion gap in Serum o r Plasma [facility] BUN/Creatinine ratio [facility] Calcium [Mass/volume ] in Serum or Plasma [facility] Carbon dioxide, tota l [Moles/volume] in Central venous blood [facility] Carcinoembryonic Ag [Mass/volume] in Serum or Plasma [facility] Carcinoembryonic Ag [Mass/volume] in Serum or Plasma [facility] Carcinoembryonic Ag [Mass/volume] in Serum or Plasma [facility] CBC W Auto Different ial panel - Blood [facility] Comprehensive metabo lic 2000 panel - Serum or Plasma [facility] Creatinine [Mass/vol ume] in Serum or Plasma [facility] CT Abdomen and Pelvi s W contrast IV [facility] Erythrocyte mean corpuscular volume determination [facility] Ferritin [Mass/volum e] in Serum or Plasma [facility] Glucose [Mass/volume ] in Serum or Plasma [facility] Hematocrit [Volume Fraction] of Blood [facility] Hemoglobin [Mass/vol ume] in Blood [facility] Iron and Iron bindin g capacity panel - Serum or Plasma [facility] Leukocytes [#/volume ] in Blood [facility] Magnesium measurement [facility] Mean corpuscular hem oglobin concentration determination [facility] Mean corpuscular hem oglobin determination [facility] Measurement of renal function [facility] Neutrophil count [facility] Neutrophil percent differential count [facility] Ova OR parasites identification [facility] Patient Education [facility] Work Phone: Patient referral [facility] Work Phone: Platelets [#/volume] in Blood [facility] Potassium measurement [facility] Red blood cell count [facility] Red cell distributio n width determination [facility] Serum chloride measurement [place] Sodium measurement [facility] Urea nitrogen [Mass/ volume] in Serum or Plasma [facility] Immunizations Immunization Date Immunization Notes Care Provider Fa cility 08-03-2019 influenza virus vacc ine, unspecified formulation Papi Hernandez MD Work Phone: [facility] Payers Date Payer Category Payer Medicare [id number] 2024 Self-pay [id number] 2024 Self-pay [id number] 2022 Self-pay 0 [id number] 2009 Medicare MEDICARE [id number] 1944 Unknown [id number] 7 1944 Unknown [id number] 7 1944 Unknown [id number] 7 1944 Unknown [id number] 7 1944 Unknown [id number] 7 4 Unknown [id number] 7 Unknown [id number] Unknown [id number] 2.16.840.1.966740.3.579.2.462 Unknown [id number] 2.16.840.1.793291.3.579.2.462 Unknown [id number] 2.16.840.1.266956.3.579.2.462 Unknown [id number] 2.16.840.1.917926.3.579.2.462 Unknown [id number] 2.16.840.1.727304.3.579.2.462 Unknown [id number] 2.16.840.1.273057.3.579.2.462 Unknown 28367426 2.16.840.1.184516.3.579.2.462 Unknown [id number] 2.16.840.1.414710.3.579.2.462 Unknown 81581374 2.16.840.1.509472.3.579.2.462 Unknown 70326997 2.16.840.1.074524.3.579.2.462 Unknown 81072706 2.16.840.1.547085.3.579.2.462 Unknown 39432304 2.16.840.1.352134.3.579.2.462 Unknown 00354106 2.16.840.1.895726.3.579.2.462 Unknown 20253865 2.16.840.1.406363.3.579.2.462 Unknown 95729882 2.16.840.1.116877.3.579.2.462 Unknown 16422865 2.16.840.1.656575.3.579.2.462 Unknown 97917297 2.16.840.1.207108.3.579.2.462 Unknown [id number] 2.16.840.1.478089.3.579.2.462 Unknown 00270853 2.16.840.1.445607.3.579.2.462 Unknown 23076721 2.16.840.1.980541.3.579.2.462 Unknown 80735487 2..840.1.390405.3.579.2.462 Unknown 34246767 2..840.1.469617.3.579.2.462 Unknown 18520718 2.840.1.480510.3.579.2.462 Unknown 15438810 2..840.1.414050.3.579.2.462 Unknown 14748383 2..840.1.036528.3.579.2.462 Unknown 92389010 2..840.1.430895.3.579.2.462 Unknown 80156050 2.16.840.1.756552.3.579.2.462 Unknown 74088419 2.16.840.1.624046.3.579.2.462 Unknown 31889644 2.16.840.1.995216.3.579.2.462 Unknown 63281634 2.16.840.1.389644.3.579.2.462 Unknown 21703732 2.16.840.1.604733.3.579.2.462 Unknown 70961871 2.16.840.1.903759.3.579.2.462 Unknown 38017703 2.16.840.1.316819.3.579.2.462 Unknown 91347454 2.16.840.1.573833.3.579.2.462 Unknown 34136591 2.16840.1.503970.3.579.2.462 Unknown 64791088 2.16.840.1.889731.3.579.2.462 Unknown 64031839 2.840.1.886153.3.579.2.462 Unknown 68043233 2.840.1.357463.3.579.2.462 Unknown 33793109 2.840.1.480743.3.579.2.462 Unknown 73800635 2.840.1.799352.3.579.2.462 Unknown 95515381 2.840.1.741742.3.579.2.462 Unknown 89301686 2.840.1.623590.3.579.2.462 Unknown 63807289 2.840.1.738590.3.579.2.462 Unknown 16796737 2.840.1.359505.3.579.2.462 Unknown 32791748 2.840.1.564928.3.579.2.462 Unknown 28386212 2.840.1.557531.3.579.2.462 Unknown 23680507 2.840.1.646848.3.579.2.462 Unknown 50952083 2.840.1.233155.3.579.2.462 Unknown 90632333 2.840.1.964461.3.579.2.462 Unknown 10507525 2.840.1.304056.3.579.2.462 Unknown 91893278 2.840.1.393075.3.579.2.462 Unknown 47219613 2.16.840.1.300613.3.579.2.462 Unknown 28417887 2.16.840.1.223872.3.579.2.462 Unknown 70239645 2.16.840.1.898368.3.579.2.462 Unknown 98213109 2.16.840.1.649082.3.579.2.462 Unknown 66918166 2.16.840.1.043631.3.579.2.462 Unknown 71076754 2.16.840.1.187120.3.579.2.462 Unknown 87112907 2.16.840.1.254692.3.579.2.462 Unknown 90290094 2.16.840.1.262096.3.579.2.462 Unknown 30302051 2.16.840.1.022321.3.579.2.462 Unknown 84092755 2.16.840.1.659942.3.579.2.462 Unknown 93470801 2.16.840.1.455639.3.579.2.462 Unknown [id number] 2.16.840.1.220337.3.579.2.462 Unknown [id number] 2.16.840.1.764390.3.579.2.462 Unknown [id number] 2.16.840.1.474219.3.579.2.462 Unknown [id number] 2.16.840.1.559634.3.579.2.462 Unknown [id number] 2.16.840.1.961209.3.579.2.462 Unknown 51625673 2.16.840.1.144412.3.579.2.462 Unknown [id number] 2.16.840.1.632143.3.579.2.462 Unknown [id number] 2.16.840.1.175475.3.579.2.462 Unknown [id number] 2.16.840.1.164782.3.579.2.462 Unknown [id number] 2.16.840.1.013087.3.579.2.462 Social History Date Type Detail Facility Start: 08-01-1959 End: 05-05-2020 Tobacco smoking status NHIS Occasional tobacco smoker [facility] End: 08-01-1993 History of tobacco use Cigar Smoker [facility] Start: 05-07-2019 End: 07-06-2020 Cigarettes smoked current (pack per day) - Reported 1 [facility] Start: 05-07-2019 End: 05-05-2020 Tobacco use and exposure Smokeless tobacco non-user [facility] Start: 05-05-2020 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 quit cigarettes in 1993 [facility] Start: 1945 Sex Assigned At Not on file C [facility] Start: 03-06-2018 End: 09-07-2024 Tobacco smoking status MSIS Unknown if ever smoked [facility] Start: 01-25-2023 None [facility] Start: 10-31-2014 Spouse/ Signif icant Other [facility] Start: 01-25-2023 Cigarettes [facility] Start: 1945 Sex Assigned At Male [place] Start: 09-07-2024 Alcohol intake Alcohol Use Details C [employer] Start: 10-24-2024 End: 01-14-2025 Tobacco smoking status NHIS Ex-smoker (finding) [facility] Start: 10-24-2024 End: 11-20-2024 Sex Male (finding) [facility] Start: 08-01-1958 End: 08-01-1993 History of tobacco use Cigarette Smoker [facility] Start: 05-05-2020 End: 07-06-2020 Tobacco use panel [facility] PHQ2 Score 0 [facility] NEGATED: Highlighted rowStart: 09-07-2024 History of tobacco use Ex-cigarette smoker [facility] Medical Equipment Procedure Code Equipment Code Equipment Origin al Text Equipment Identifier Dates Sigmoidoscopy, flexible [id number] FDA Start: 11-06-2024 Colonoscopy [id number] [id number] FDA Start: 04-13-2024 Colonoscopy [id number] [id number] FDA Start: 11-19-2024 [facility] Thk1.65mm P tfe 4x.5in Cardiovascular Sterile - [id number] Start: 07-19-2019 [facility] FDA Sta rt: 04-27-2024 CLIP,[facility] FDA St art: 04-27-2024 [id number] [id number])21 [id number] FDA Start: 04-27-2024 ()[id number] [id number])14 [id number] FDA Start: 04-27-2024 [facility] FDA Sta rt: 04-27-2024 [facility] FDA St art: 04-27-2024 CLIP,[facility] FDA Sta rt: 04-27-2024 CLIP,[facility] FDA St art: 04-27-2024 CLIP,[facility] FDA Sta rt: 04-27-2024 CLIP,[facility] FDA St art: 04-27-2024 CLIP,[facility] FDA Sta rt: 04-27-2024 CLIP,[facility] FDA St art: 04-27-2024 CLIP,[facility] FDA Sta rt: 04-27-2024 CLIP,[facility] FDA St art: 04-27-2024 CLIP,[facility] FDA Sta rt: 04-27-2024 CLIP,[facility] FDA St art: 04-27-2024 FDA Start: 04-27-2024 FDA Start: 04-27-2024 [facility] FDA Sta rt: 04-27-2024 [facility] FDA St art: 04-27-2024 FDA Start: 04-27-2024 FDA Start: 04-27-2024 FDA Start: 04-27-2024 FDA Start: 04-27-2024 FDA Start: 04-27-2024 FDA Start: 04-27-2024 Goals Date Patient Goal Desired Activity /State Functional Status Date Assessment Result Facility 11-20-2024 Functional status Ambulates [facility] Work Phone: 11-07-2024 Functional status Ambulates;Up ad raghavendra [facility] Work Phone: 08-16-2023 Functional status Ambulates;Bath room Privilege [facility] Work Phone: 08-15-2023 Functional status Tolerates Activity Well [facility] Work Phone: 07-23-2019 Are you deaf, or do you have serious difficulty hearing No 07/23/2019 4:22 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 No [facility] Work Phone: 07-23-2019 Are you blind, or do you have serious difficulty seeing, even when wearing glasses No 07/23/2019 4:22 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 No [facility] 07-23-2019 Do you have serious difficulty walking or climbing stairs No 07/23/2019 4:22 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 No [facility] 07-23-2019 Do you have difficul ty dressing or bathing No 07/23/2019 4:22 PM Isaac Guzman, TASH.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 No [facility] 07-23-2019 Because of a physica l, mental, or emotional condition, do you have difficulty doing errands alone such as visiting a physician's office or shopping No 07/23/2019 4:22 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 No [facility] Mental Status Date Assessment Result Facility 12-05-2024 Cognitive function Voice/Name [facility] Work Phone: 12-05-2024 Cognitive function Awake;Alert;A ppropriate;Fol lows Commands [facility] Work Phone: 11-20-2024 Cognitive function Voice/Name [facility] Work Phone: 11-07-2024 Cognitive function Voice/Name [facility] Work Phone: 08-16-2023 Cognitive function Voice/Name [facility] Work Phone: 08-15-2023 Cognitive function Level Of Cons ciousness Awake;Alert;Appropriate;Fol lows Commands [facility] Work Phone: 07-23-2019 Because of a physica l, mental, or emotional condition, do you have serious difficulty concentrating, remembering, or making decisions No 07/23/2019 4:22 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 I will mail her SOLE CONDITIONER packet and make chart. 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 Adrian Flores MD~ Signed [facility] Work Phone: 1(807) 630-999306-08-2025 [facility]05-17-2025 Radiology Diagnostic study [facility]05-07-2025 Radiology Diagnostic study note [facility] Imaging Services [address] [place], [place] [address] Biopsy/Inj or Needle Placement MR#: [id number] Acct: [id number] Name: JARED RAYMOND Rep #: [id number] : 1945 M 79 From: Esdras Watts MD PCP: MARYAM Guerra Status: REG CLI Study:Biopsy/Inj or Needle Placement Date of Exam: 12/05/24 Exam# [id number] Ordering Dr: Brenda Araujo MD PROCEDURE: BIOPSY/INJ [...] core biopsy. Pathology results pending. Reading Location: [place] [address] CC: SOLE CONDITIONER-C Mariela Olson; Dr. Brenda Araujo MD ~ Gate Keeper: Signed [facility]05-04-2025 Radiology Diagnostic study [facility]04-22-2025 Discharge summary Author Neville Jang [facility] Note Date/Time November 20, 2024 1:2 2pm [facility] Medical Records Department [address] [place] [address] Instructions for Home/Discharge Instructions 11/20/24 1241 MR#: [id number] Acct: [id number] Name: JARED RAYMOND Rep #:[id number] : 1945 79 From: Neville Jagn DO PCP: MARYAM Guerra Status:ADM IN Discharge [...] Selam Craig NP, CHRISTEL-C [Med Staff - [facility] Practice Prof] - See Referral Note (Theoffice will call you to confirm an appointment time) Disposition Disposition (needs filled in before D/C Order can be placed): Home, Self Care 11/20/24 1322<Electronically signed by Neville Jang DO>Neville Jang DO CC: CHRISTEL-C Mariela Olson; Dr. Kelvin Schrader MD ~ Signed [facility] Work Phone: 1(938) 368-990004-22-2025 Consult note [facility] Medical Records Department [address] [place] [address] Counseling Note - Pharmacy 11/20/24 1342 MR#: [id number] Acct: [id number] Name: JARED RAYMOND Rep #:[id number] : 1945 79 From: Kush Daniel PCP: MARYAM Guerra Status:ADM IN Y Location: [facility] UF056-2 Pharmacy [place] [facility] Reconciliation Pharmacy Service has performed discharge [...] Signature (if applicable): Date CC: ~ Signed [facility]04-22-2025 Discharge summary [facility] Medical Records Department [address] [place] [address] Instructions for Home/Discharge Instructions 11/20/24 1241 MR#: [id number] Acct: [id number] Name: JARED RAYMOND Rep #:[id number] : 1945 79 From: Neville Jang DO [...] 28 0RF Referrals / Follow Up: Shahram,Mariela, SOLE CONDITIONER-C [Primary Care Provider] - Selam Craig NP, CHRISTEL-C [Med Staff - [facility] Practice Prof] - See Referral Note (Theoffice will call you to confirm an appointment time) Disposition Disposition (needs filled in before D/C Order can be placed): Home, Self Care 11/20/24 1322Mark Tereletsky DO CC: MARYAM Olson; Dr. Kelvin Schrader MD ~ Signed [facility]04-22-2025 [facility]04-22-2025 Consult note Author Keo Burgos [facility] Note Date/Time November 20, 2024 9:5 5am [facility] Medical Records Department [address] [place] [address] Anesthesia Postop Eval II 11/20/2452 MR#: [id number] Acct: [id number] Name: JARED RAYMOND Rep #:[id number] : 1945 79 From: Keo Burgos MD PCP: MARYAM Guerra Status:ADM IN Y Race: C Location: [facility] MS324 -1 Anesthesia Postop Eval I Sum [...] MD Cosigner Signature: Date CC: ~ Signed [facility] Work Phone: 1(435) 589-956104-22-2025 Consult note [facility] Medical Records Department [address] [place], [place] [address] [address] Anesthesia Postop Eval II 11/20/2452 MR#: [id number] Acct: [id number] Name: JARED RAYMOND Rep #:[id number] : 1945 79 From: Keo Burgos MD PCP: MARYAM Guerra Status:ADM IN Y Race: C Location: [place] [address] Anesthesia Postop Eval I Sum Postop Eval [...] MD Cosigner Signature: Date CC: ~ Signed [facility]04-22-2025 Procedure note [facility] Medical Records Department [address] [place] [address] Colonoscopy Report MR#: [id number] Acct: [id number] Name: JARED RAYMOND Rep #:[id number] : 1945 79 From: Ari Silvestre DO [...] three hemostatic clips were successfully placed. 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 There was no bleeding at the end [...] the colonic anastomosis. Clips were placed. 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 - The examined portion of the ileum was normal. - No specimens collected. Recommendation: - Return patient to [facility] for [facility] care. - Resume previous diet. - Continue present medications. - Repeat colonoscopy in 1 year to assess disease activity. Procedure Code(s): --- Professional --- 81198, Colonoscopy, flexible; with control of bleeding, any method 79622, 59, Colonoscopy, flexible; with directed submucosal injection(s), any substance CPT copyright 2021 [employer]. All rights reserved. The codes documented in this report are preliminary and upon command post craftsman review may be revised to meet current compliance requirements. Ari Slivestre DO 11/20/2024 7:56:55 AM This report has been signed electronically. Number of Addenda: 0 Note Initiated On: 11/19/2024 1:03 PM 11/20/24 0757 Date _ Ari Silvestre DO Cosigner Signature: Date (if indicated) CC: MARYAM Olson; Ari Silvestre DO ~ Date Dictated: 11/19/24 1303 Date Transcribed: Gate Keeper: RF Signed [facility]04-22-2025 Procedure note [facility] Medical Records Department [address] [place] [address] Operative Report - CC Letter MR#: [id number] Acct: [id number] Name: JARED RAYMOND Rep #:[id number] : 1945 79 From: Ari Silvestre DO [...] the colonic anastomosis. Clips were placed. 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 - The examined portion of the ileum [...] ~ Date Dictated: 11/19/24 1303 Date Transcribed: Gate Keeper: RF Signed [facility]04-21-2025 Progress note Author Neville Jang [facility] Note Date/Time November 19, 2024 6:2 0pm [facility] Medical Records Department [address] [place] [address] Progress Note - Hospitalist 11/19/246 MR#: [id number] Acct: [id number] Name: JARED RAYMOND Rep #:[id number] : 1945 79 From: Neville Jang DO PCP: MARYAM Guerra Status:ADM IN Location: [facility] KF979-9 Reason for Visit Reason for Visit: Diagnoses [...] 73.3 H, Lymph % (Auto) 14.2 L, Mower % (Auto) 10.0, Eos % (Auto) 1.9, [...] 35 minutes Charges/Coding Visit Charges Inpatient E&M: 79671 Subs Hosp L2 11/19/24 1820 <Electronically signed by Neville Jang DO> Cosigner Signature (if applicable): CC: ~ Signed [facility] Work Phone: 1(891) 246-111304-21-2025 Progress note [facility] Medical Records Department [address] [place] [address] Progress Note - Hospitalist 11/19/24 181 MR#: [id number] Acct: [id number] Name: JARED RAYMOND Rep #:[id number] : 1945 79 From: Neville Jang DO PCP: MARYAM Guerra Status:ADM IN Location: [place] [address] Reason for Visit Reason for Visit: Diagnoses [...] 73.3 H, Lymph % (Auto) 14.2 L, Mower % (Auto) 10.0, Eos % (Auto) 1.9, [...] 35 minutes Charges/Coding Visit Charges Inpatient E&M: 77846 Subs Hosp L2 11/19/24 1820 Cosigner Signature (if applicable): CC: ~ Signed [facility]04-21-2025 Consult note Author Guerrero Miller [facility] Note Date/Time November 19, 2024 2:0 5pm [facility] Medical Records Department [address] [place] [address] Anesthesia Postop Eval I 11/19/24 1402 MR#: [id number] Acct: [id number] Name: CHRISJARED Kaitlin Rep #:[id number] : 1945 79 From: Guerrero Miller PCP: MARYAM Guerra Status:ADM IN Y Race: C Location: [place] [address] -1 Anesthesia: Postop Eval I Current Vital [...] document: Postop Eval 1 completed: Yes 11/19/24 8158 <Electronically signed by Guerrero Miller > Date _ Guerrero Miller Rossiignbrant Signature: Date CC: ~ Signed [facility] Work Phone: 1(163) 193-840904-21-2025 Consult note Author Ari Friend [facility] Note Date/Time November 19, 2024 12: 58pm [facility] Medical Records Department [address] [place] [address] Consultation - GI 11/19/24 1256 MR#: [id number] Acct: [id number] Name: JARED RAYMOND Rep #:[id number] : 1945 79 From: Ari Silvestre DO PCP: MARYAM Guerra Status:ADM IN [facility] Consult Data Date of Consult: 11/19/24 [...] presents for evaluation. He originally presented to [facility] ED on 04/11/2024 with c/o hematochezia and [...] the possible use of ivermectin for treatment. [facility] Medical History Diverticulosis Mediastinal lymphadenopathy Colon cancer [...] 73.3 H, Lymph % (Auto) 14.2 L, Mower % (Auto) 10.0, Eos % (Auto) 1.9, [...] undergo colonoscopy. Charges/Coding Visit Charges Inpatient E&M: 39996 Init Hosp L3 11/19/24 6331 <Electronically signed by Ari Friend DO> Cosigner Signature (if applicable): CC: SOLE CONDITIONER-C Mariela Olson; Dr. Kelvin Schrader MD~ Signed [facility] Work Phone: 1(871) 348-860204-21-2025 Consult note [facility] Medical Records Department [address] [place] [address] Anesthesia Postop Eval I 11/19/24 1402 MR#: [id number] Acct: [id number] Name: JARED RAYMOND Rep #:[id number] : 1945 79 From: Guerrero Miller PCP: MARYAM Guerra Status:ADM IN Y Race: C [facility] -[facility] Anesthesia: Postop Eval I Current Vital [...] Guerrero Vela Signature: Date CC: ~ Signed [facility]04-21-2025 Consult note Author Steven Ann [facility] Note Date/Time November 19, 2024 12: 03pm [facility] Medical Records Department [address] [place] [address] Pre-Anesthesia Evaluation 11/19/24 1202 MR#: [id number] Acct: [id number] Name: JARED RAYMOND Rep #:[id number] : 1945 79 From: Steven Ann MD PCP: Mariela Olson, SOLE CONDITIONER-C Status:ADM IN Y Race: C Location: [place] [address] ASA Classification* ASA Classification ASA Classification: 3 [...] Procedure(s): colonoscopy Anesthesia History 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 Hx Hospitalization Yes: 06/09/24 BIOPSY OF LIVER [...] take am of surgery PONV 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: 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 Female HX of Motion Sickness HX of N/V After Surgery Non-Smoker Duration of Surgery greater than 60 minutes Number of Risk Factors PONV Score Height & Weight Height & Weight: Anesthesia: Height & Weight Height 5 ft 7.5 in 11/19/24 08:57 Weight: 68.946 kg 11/19/24 08:57 Body Mass Index (BMI) 23.4 11/19/24 08:57 Respiratory Assessment 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: Respiratory Tract Infection Hx - 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 Hx Respiratory Tract Infection No 11/18/24 21:04 STOP Sleep Apnea STOP 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: STOP 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 Hx Hypertension Yes 11/18/24 15:46 Hx Sleep [...] Tobacco Use History 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: 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 Tobacco Use Cigarettes 01/25/23 14:01 Smoking Status Former smoker 11/18/24 17:39 Hx Tobacco Use Yes: Cigar 11/18/24 15:46 Years Smoking Packs Smoked per Day Smoking Cessation Date was Yes - quit smoking within 15 11/18/24 15:46 within the last 15 years years Hx Smoking Cessation Date 04/01/23 11/18/24 15:46 Hx Smoking Cessation Yes 11/18/24 15:46 Counseling Hematologic Medial History 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 Hx of Blood Transfusion Yes 11/18/24 15:46 [...] confused, unrespo /Reproduction History /Reproductive History - 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: /Reproductive Hx- 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 Hx Now No 11/18/24 21:04 Gestational Age [...] MD Cosigner Signature: Date CC: ~ Signed [facility] Work Phone: 1(808) 656-568204-21-2025 Consult note [facility] Medical Records Department [address] [place] [address] Consultation - GI 11/19/24 1256 MR#: [id number] Acct: [id number] Name: JARED RAYMOND Rep #:[id number] : 1945 79 From: Ari Friend DO PCP: Mariela Olson SOLE CONDITIONERJoseC Status:ADM IN Location: [facility] ME955-9 HPI Consult Data Date of Consult: 11/19/24 [...] presents for evaluation. He originally presented to [facility] ED on 04/11/2024 with c/o hematochezia and [...] the possible use of ivermectin for treatment. [facility] Medical History Diverticulosis Mediastinal lymphadenopathy Colon cancer [...] 73.3 H, Lymph % (Auto) 14.2 L, Mower % (Auto) 10.0, Eos % (Auto) 1.9, [...] undergo colonoscopy. Charges/Coding Visit Charges Inpatient E&M: 60686 Init Hosp L3 11/19/24 1258 Cosigner Signature (if applicable): CC: SOLE CONDITIONER-C Mariela Olson; Dr. 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 Hx Hospitalization Yes: 06/09/24 BIOPSY OF LIVER [...] take am of surgery PONV 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: 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 Female HX of Motion Sickness HX of N/V After Surgery Non-Smoker Duration of Surgery greater than 60 minutes Number of Risk Factors PONV Score Height & Weight Height & Weight: Anesthesia: Height & Weight Height 5 ft 7.5 in 11/19/24 08:57 Weight: 68.946 kg 11/19/24 08:57 Body Mass Index (BMI) 23.4 11/19/24 08:57 Respiratory Assessment 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: Respiratory Tract Infection Hx - 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 Hx Respiratory Tract Infection No 11/18/24 21:04 STOP Sleep Apnea STOP 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: STOP 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 Hx Hypertension Yes 11/18/24 15:46 Hx Sleep [...] Tobacco Use History 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: 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 Tobacco Use Cigarettes 01/25/23 14:01 Smoking Status Former smoker 11/18/24 17:39 Hx Tobacco Use Yes: Cigar 11/18/24 15:46 Years Smoking Packs Smoked per Day Smoking Cessation Date was Yes - quit smoking within 15 11/18/24 15:46 within the last 15 years years Hx Smoking Cessation Date 04/01/23 11/18/24 15:46 Hx Smoking Cessation Yes 11/18/24 15:46 Counseling Hematologic Medial History 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 Hx of Blood Transfusion Yes 11/18/24 15:46 [...] confused, unrespo /Reproduction History /Reproductive History - 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: /Reproductive Hx- 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 Hx Now No 11/18/24 21:04 Gestational Age [...] MD Cosigner Signature: Date CC: ~ Signed [facility]04-20-2025 History and physical note Author Kelvin Schrader [facility] Note Date/Time November 18, 2024 4:0 6pm [facility] Medical Records Department [address] [place] [address] H&P Exam - Hospitalist 11/18/24 1335 MR#: [id number] Acct: [id number] Name: JARED RAYMOND Rep #:[id number] : 1945 79 From: Kelvin rojas MD PCP: MARYAM Guerra Status:ADM IN Location: [facility] WZ592-0 HPI - General General Date of Admission: [...] with the possibility of proceeding with chemotherapy. [facility] Medical History Diverticulosis Mediastinal lymphadenopathy Colon cancer [...] 71.9 H, Lymph % (Auto) 14.4 L, Mower % (Auto) 11.2 H, Eos % (Auto) [...] to the large mesenteric mass. Reading Location: [facility] Assessment & Plan Assessment/Plan (1) GI bleed: [...] Multi Select Codes Visit Charges Visit Charges: 59684 Init Hosp L2 Hospitalists' Procedures Procedures: 88322 Advncd Care Plan 30 Min 11/18/24 1606 <Electronically signed by Kelvin Schrader MD> Cosigner Signature (if applicable): CC: MARYAM Olson; Dr. Kelvin Schrader MD~ Signed [facility] Work Phone: 1(457) 293-663704-20-2025 Discharge summary Author Radha Damon [facility] Note Date/Time November 18, 2024 2:5 3pm [facility] Medical Records Department [address] [place] [address] Emergency Department Summary 11/18/24 MR#: [id number] Acct: [id number] Name: JARED RAYMOND Rep #:[id number] : 1945 79 From: Radha [place] PCP: MARYAM Guerra Status:ADM IN Location: MT3 PG655-5 HPI <ONDINA Govea - Last Filed: 11/18/24 [...] He denies any fevers, chills, or vomiting. [facility] <ONDINA Govea - Last Filed: 11/18/24 14:05> [facility] Medical History Diverticulosis Mediastinal lymphadenopathy Colon cancer [...] <ONDINA Govea - Last Filed: 11/18/24 14:05> [facility] MDM Narrative Medical decision making narrative: [...] 71.9 H Lymph % (Auto) 14.4 L Mower % (Auto) 11.2 H Eos % (Auto) [...] to the large mesenteric mass. Reading Location: [id number] <Dr. Lazaro Sharp MD - Last Filed: 11/18/24 14:53> [facility] Narrative Medical decision making narrative: ulceration [...] 71.9 H Lymph % (Auto) 14.4 L Mower % (Auto) 11.2 H Eos % (Auto) [...] to the large mesenteric mass. Reading Location: [facility] CT of the abdomen pelvis was reviewed [...] made aware of patient and admit to [facility]) Procedures <Dr. Lazaro Sharp MD - Last [...] of hypertension Disposition Disposition: Acute Care Hospital [facility] What to do if you have Problems For any increased pain, shortness of breath, bleeding, nausea or vomiting, chest pain, or any unexpected problems, contact your Primary Care Provider. Call [facility] ([phone]) or report to the closest Emergency Room. Call 911 if necessary. 11/18/24 1405 <Electronically signed by Radha NJ> Cosigner Signature (if applicable): 11/18/24 1453 <Electronically signed by Lazaro Sharp MD> CC: MARYAM Olson ~ Signed [facility] Work Phone: 1(670) 928-753204-20-2025 History and physical note [facility] Medical Records Department [address] [facility] [place] [address] H&P Exam - Hospitalist 11/18/24 1335 MR#: [id number] Acct: [id number] Name: JARED RAYMOND Rep #:[id number] : 1945 79 From: Kelvin rojas MD PCP: Mariela Shahram, SOLE CONDITIONER-C Status:ADM IN Location: MS3 JC900-2 HPI - General General Date of Admission: [...] with the possibility of proceeding with chemotherapy. [facility] Medical History Diverticulosis Mediastinal lymphadenopathy Colon cancer [...] 71.9 H, Lymph % (Auto) 14.4 L, Mower % (Auto) 11.2 H, Eos % (Auto) [...] to the large mesenteric mass. Reading Location: [facility] Assessment & Plan Assessment/Plan (1) GI bleed: [...] Multi Select Codes Visit Charges Visit Charges: 55196 Init Hosp L2 Hospitalists' Procedures Procedures: 39278 Advncd Care Plan 30 Min 11/18/24 1606 Cosigner Signature (if applicable): CC: MARYAM Olson; Dr. Kelvin Schrader MD~ Signed [facility]04-20-2025 Discharge summary [facility] Medical Records Department [address] [place] [address] Emergency Department Summary 11/18/24 MR#: [id number] Acct: [id number] Name: JARED RAYMOND Rep #:[id number] : 1945 79 From: Radha NJ PCP: MARYAM Guerra Status:ADM IN Location: [place] 590684-1 HPI HPI - GI History of Present [...] 71.9 H Lymph % (Auto) 14.4 L Mower % (Auto) 11.2 H Eos % (Auto) [...] to the large mesenteric mass. Reading Location: [facility] Narrative Medical decision making narrative: [...] 71.9 H Lymph % (Auto) 14.4 L Mower % (Auto) 11.2 H Eos % (Auto) [...] to the large mesenteric mass. Reading Location: [facility] CT of the abdomen pelvis was reviewed [...] made aware of patient and admit to [facility]) Procedures Other Procedures Procedure(s): Anoscopy was performed. [...] of hypertension Disposition Disposition: Acute Care Hospital [facility] What to do if you have Problems For any increased pain, shortness of breath, bleeding, nausea or vomiting, chest pain, or any unexpected problems, contact your Primary Care Provider. Call [facility] ([phone]) or report to the closest Emergency Room. Call 911 if necessary. 11/18/24 1405 Cosigner Signature (if applicable): 11/18/24 1418 CC: MARYAM Olson ~ Signed [facility]04-20-2025 Discharge summary Author Radha Damon [facility] Note Date/Time November 18, 2024 2:5 3pm [facility] Medical Records Department [address] [place] [address] Emergency Department Summary 11/18/24 MR#: [id number] Acct: [id number] Name: JARED RAYMOND Rep #:[id number] : 1945 79 From: Radha [place] PCP: MARYAM Guerra Status:ADM IN [facility] <ONDINA Govea - Last Filed: 11/18/24 [...] <ONDINA Govea - Last Filed: 11/18/24 14:05> [facility] Medical History Diverticulosis Mediastinal lymphadenopathy Colon cancer [...] <ONDINA Govea - Last Filed: 11/18/24 14:05> [facility] MDM Narrative Medical decision making narrative: [...] 71.9 H Lymph % (Auto) 14.4 L Mower % (Auto) 11.2 H Eos % (Auto) [...] to the large mesenteric mass. Reading Location: [id number] <Dr. Lazaro Sharp MD - Last Filed: 11/18/24 14:53> [facility] MDM Narrative Medical decision making narrative: [...] 71.9 H Lymph % (Auto) 14.4 L Mower % (Auto) 11.2 H Eos % (Auto) [...] to the large mesenteric mass. Reading Location: [facility] CT of the abdomen pelvis was reviewed [...] made aware of patient and admit to [facility]) Procedures <Dr. Lzaaro Sharp MD - Last Filed: 11/18/24 14:53> [...] of hypertension Disposition Disposition: Acute Care Hospital [facility] What to do if you have Problems For any increased pain, shortness of breath, bleeding, nausea or vomiting, chest pain, or any unexpected problems, contact your Primary Care Provider. Call [facility] ([phone]) or report to the closest Emergency Room. Call 911 if necessary. 11/18/24 1405 <Electronically signed by Radha NJ> Cosigner Signature (if applicable): 11/18/24 1453 <Electronically signed by Lazaro Sharp MD> CC: MARYAM Olson ~ Signed [facility] Work Phone: 1(263) 104-347504-20-2025 Radiology Diagnostic study note [facility] Imaging Services [address] [place], [place] [address] Abdomen/Pelvis W IV Cont ONLY MR#: [id number] Acct: [id number] Name: JARED RAYMOND Rep #: [id number] : 1945 M 79 From: Vanessa Rosado MD PCP: Mariela Olson NP-C Status: REG ER Study:Abdomen/Pelvis W IV Cont ONLY Date of E xam: 11/18/24 Exam# [id number] Ordering Dr: Radha Sharp MD PROCEDURE: ABDOMEN/PELVIS [...] to the large mesenteric mass. Reading Location: [facility] CC: MARYAM Olson; Dr. Lazaro Sharp MD ~ Gate Keeper: Signed [facility]04-09-2025 Discharge summary [facility] Medical Records Department [address] [place] [address] Discharge Summary 11/07/24 1655 MR#: [id number] Acct: [id number] Name: JARED RAYMOND Rep #:[id number] : 1945 79 From: Stevie Harrington DO PCP: MARYAM Guerra Status:ADM IN Location: [place] [address] Providers Date of Admission: 11/06/24 Primary Care Physician: MARYAM Guerra Consultations 11/06/24 03:28 Consult: Gastroenterology Routine Consulting Provider: [facility] Reason for Consult: LGIB with BRBPR; [...] 70.4 H, Lymph % (Auto) 14.8 L, Mower % (Auto) 12.5 H, Eos % (Auto) [...] Self Care Charges/Coding Visit Charges Inpatient E&M: 07306 Disch Hosp >30min 11/07/24 1707 Cosigner Signature (if applicable): CC: MARYAM Olson; Dr. Stevie Harrington DO~ Signed [facility]04-09-20[facility] Progress note Author Stevie Harrington [facility] Note Date/Time November 07, 2024 12:2 7pm [facility] Medical Records Department [address] [place] [address] Progress Note - Hospitalist 11/07/24 0727 MR#: [id number] Acct: [id number] Name: JARED RAYMOND Rep #:[id number] : 1945 79 From: Stevie Harrington DO PCP: MARYAM Guerra Status:ADM IN Location: [place] [address] Reason for Visit Reason for Visit: Diagnoses [...] 78.1 H, Lymph % (Auto) 9.1 L, Mower % (Auto) 11.9 H, Eos % (Auto) [...] 70.4 H, Lymph % (Auto) 14.8 L, Mower % (Auto) 12.5 H, Eos % (Auto) [...] prophylaxis: SCDs. Charges/Coding Visit Charges Inpatient E&M: 54450 Subs Hosp L2 11/07/24 2459 <Electronically signed by Stevie Harrington DO> Cosigner Signature (if applicable): CC: ~ Signed [facility] Work Phone: 1(721) 415-437604-09-2025 Progress note [facility] Medical Records Department [address] [place] [address] Progress Note - Hospitalist 11/07/24726 MR#: [id number] Acct: [id number] Name: JARED RAYMOND Rep #:[id number] : 1945 79 From: Stevie Harrington DO PCP: Mariela Olson SOLE CONDITIONER-C Status:ADM IN Location: [place] [address] Reason for Visit Reason for Visit: Diagnoses [...] 78.1 H, Lymph % (Auto) 9.1 L, Mower % (Auto) 11.9 H, Eos % (Auto) [...] 70.4 H, Lymph % (Auto) 14.8 L, Mower % (Auto) 12.5 H, Eos % (Auto) [...] prophylaxis: SCDs. Charges/Coding Visit Charges Inpatient E&M: 99299 [facility] Hosp L2 11/07/24 1227 Cosigner Signature (if applicable): CC: ~ Signed [facility]04-08-2025 Consult note Author Keo Burgos [facility] Note Date/Time November 06, 2024 8:40 pm [facility] Medical Records Department [address] [place] [address] Anesthesia Postop Eval II 11/06/242038 MR#: [id number] Acct: [id number] Name: AJRED RAYMOND Rep #:[id number] : 1945 79 From: Keo Burgos MD PCP: MARYAM Guerra Status:ADM IN Y Race: C Location: [place] [address] 3-1 Anesthesia Postop Eval I Sum Postop [...] MD Cosigner Signature: Date CC: ~ Signed [facility] Work Phone: 1(136) 941-943304-08-2025 Consult note Author Keo [facility] Note Date/Time November 06, 2024 8:00 pm [facility] Medical Records Department [address] [place] [address] Anesthesia Postop Eval I 11/06/241948 MR#: [id number] Acct: [id number] Name: JARED RAYMOND Rep #:[id number] : 1945 79 From: Keo Burgos MD PCP: MARYAM Guerra Status:ADM IN Y Race: C Location: [place] [address] Anesthesia: Postop Eval I Current Vital Signs [...] MD Cosigner Signature: Date CC: ~ Signed [facility] Work Phone: 1(306) 344-778604-08-2025 Consult note Author Keo [facility] Note Date/Time November 06, 2024 7:07 pm [facility] Medical Records Department [address] [place] [address] Pre-Anesthesia Evaluation 11/06/24 1859 MR#: [id number] Acct: [id number] Name: JARED RAYMOND Rep #:[id number] : 1945 79 From: Keo Burgos MD PCP: MARYAM Guerra Status:ADM IN Y Race: C Location: [place] [address] 3-1 ASA Classification* ASA Classification ASA Classification: [...] Flexible sigmoidoscopy Anesthesia History 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 Hx Hospitalization Yes: 06/09/24 BIOPSY OF LIVER [...] sips of water?: Yes PONV 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: 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 Female HX of Motion Sickness HX of N/V After Surgery Non-Smoker Duration of Surgery greater than 60 minutes Number of Risk Factors PONV Score Height & Weight Height & Weight: Anesthesia: Height & Weight Height 5 ft 7 in 11/06/24 09:29 Weight: 72 kg 11/06/24 09:29 Body Mass Index (BMI) 24.8 11/06/24 05:23 Respiratory Assessment 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: Respiratory Tract Infection Hx - 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 Hx Respiratory Tract Infection Yes: Patient is recovering 06/22/24 12:11 from a cold/sinus congestion STOP Sleep Apnea STOP 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: STOP 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 Hx Hypertension Yes 11/06/24 13:19 Hx Sleep [...] Tobacco Use History 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: 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 Tobacco Use Cigarettes 01/25/23 14:01 Smoking Status Former smoker 11/06/24 13:51 Hx Tobacco Use Yes: Cigar 11/06/24 03:38 Years Smoking Packs Smoked per Day Smoking Cessation Date was Yes - quit smoking within 15 11/06/24 03:38 within the last 15 years years Hx Smoking Cessation Date 04/01/23 11/06/24 03:38 Hx Smoking Cessation Yes 11/06/24 03:38 Counseling Hematologic Medial History 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 Hx of Blood Transfusion Yes 11/06/24 03:38 [...] confused, unrespo /Reproduction History /Reproductive History - 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: /Reproductive Hx- 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 Hx Now Gestational Age (in weeks): EDC: [...] MD Cosigner Signature: Date CC: ~ Signed [facility] Work Phone: 1(393) 324-282204-08-2025 Consult note Author Ari Friend [facility] Note Date/Time November 06, 2024 6:59 pm [facility] Medical Records Department [address] [place] [address] Consultation - GI 11/06/24 1854 MR#: [id number] Acct: [id number] Name: JARED RAYMOND Rep #:[id number] : 1945 79 From: Ari Silvestre DO PCP: MARYAM Guerra Status:ADM IN Location: [place] [address] HPI Consult Data Date of Consult: 11/06/24 [...] presents for evaluation. He originally presented to [facility] ED on 04/11/2024 with c/o hematochezia and [...] positive, MSI stable. Pathologic staging pT4 pN2b. [facility] Medical History Encounter for education Pre-op testing [...] % (Auto) Cancelled, Lymph % (Auto) Cancelled, Mower % (Auto) Cancelled, Eos % (Auto) Cancelled, [...] Drop Cells Cancelled, Ovalocytes Cancelled, Stomatocytes Cancelled, Scott-[place] Bodies Cancelled, Tani Cells Cancelled, Bite Cells [...] 76.8 H, Lymph % (Auto) 12.9 L, Mower % (Auto) 8.9, Eos % (Auto) 0.6, [...] 74.5 H, Lymph % (Auto) 13.7 L, Mower % (Auto) 9.8, Eos % (Auto) 1.4, [...] 78.1 H, Lymph % (Auto) 9.1 L, Mower % (Auto) 11.9 H, Eos % (Auto) [...] stable findings as described above. Reading [facility] Assessment & Plan Assessment/Plan (1) GI (gastrointestinal [...] flexible sigmoidoscopy. Charges/Coding Visit Charges Inpatient E&M: 92826 Init Hosp L3 11/06/24 185 <Electronically signed by Ari Silvestre DO> Cosigner Signature (if applicable): CC: MARYAM Olson~ Signed [facility] Work Phone: 1(421) 368-992004-08-2025 Consult note [facility] Medical Records Department [address] [place] [address] Anesthesia Postop Eval II 11/06/242038 MR#: [id number] Acct: [id number] Name: JARED RAYMOND Rep #:[id number] : 1945 79 From: Keo Burgos MD PCP: MARYAM Guerra Status:ADM IN Y Race: C Location: [place] [address] 3-1 Anesthesia Postop Eval I Sum Postop [...] MD Cosigner Signature: Date CC: ~ Signed [facility]04-08-2025 Consult note [facility] Medical Records Department [address] [place] [address] Anesthesia Postop Eval I 11/06/241948 MR#: [id number] Acct: [id number] Name: JARED RAYMOND Rep #:[id number] : 1945 79 From: Keo Burgos MD PCP: MARYAM Guerra Status:ADM IN Y Race: C Location: [address] Anesthesia: Postop Eval I Current Vital [...] Postop Eval 1 completed: Yes 11/06/241999 quincy DAVIS> Date _ Keo Vela Signature: Date CC: ~ Signed [facility]04-08-2025 Procedure note [facility] Medical Records Department [address] [place] [address] Colonoscopy Report MR#: [id number] Acct: [id number] Name: JARED RAYMOND Rep #:[id number] : 1945 79 From: Ari Silvestre DO [...] digital rectal examinations were normal. Hematin (altered blood/gheoxz-kkkvqg-lmdh material) was found in the entire colon. There was evidence of a prior end-to-side ileo-colonic anastomosis in the ascending colon. This was patent and was characterized by ulceration and an intact staple line. The anastomosis was traversed. To stop active bleeding, one hemostatic clip was successfully placed. 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 There was no bleeding at the end [...] was poor. Procedure Code(s): --- Professional --- 83948, Colonoscopy, flexible; with control of bleeding, any method CPT copyright 2021 [employer]. All rights reserved. The codes documented in this report are preliminary and upon command post craftsman review may be revised to meet current compliance requirements. Ari Silvestre DO 11/06/2024 7:48:14 PM This report has been signed electronically. Number of Addenda: 0 Note Initiated On: 11/06/2024 6:51 PM 11/06/241947 Date _ Ari Nirmala Phelpsigner Signature: Date (if indicated) CC: SOLE CONDITIONER-C Mariela Olson; Ari Nirmala, ~ Date Dictated: 11/06/241850 Date Transcribed: Gate Keeper: RF Signed [facility]04-08-2025 Consult note [facility] Medical Records Department [address] [place] [address] Pre-Anesthesia Evaluation 11/06/241858 MR#: [id number] Acct: [id number] Name: JARED RAYMOND Rep #:[id number] : 1945 79 From: Keo Burgos MD PCP: MARYAM Guerra Status:ADM IN Y Race: C Location: [place] [address] 3-1 ASA Classification* ASA Classification ASA Classification: [...] Flexible sigmoidoscopy Anesthesia History 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 Hx Hospitalization Yes: 06/09/24 BIOPSY OF LIVER [...] sips of water?: Yes PONV 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: 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 Female HX of Motion Sickness HX of N/V After Surgery Non-Smoker Duration of Surgery greater than 60 minutes Number of Risk Factors PONV Score Height & Weight Height & Weight: Anesthesia: Height & Weight Height 5 ft 7 in 11/06/24 09:29 Weight: 72 kg 11/06/24 09:29 Body Mass Index (BMI) 24.8 11/06/24 05:23 Respiratory Assessment 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: Respiratory Tract Infection Hx - 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 Hx Respiratory Tract Infection Yes: Patient is recovering 06/22/24 12:11 from a cold/sinus congestion STOP Sleep Apnea STOP 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: STOP 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 Hx Hypertension Yes 11/06/24 13:19 Hx Sleep [...] Tobacco Use History 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: 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 Tobacco Use Cigarettes 01/25/23 14:01 Smoking Status Former smoker 11/06/24 13:51 Hx Tobacco Use Yes: Cigar 11/06/24 03:38 Years Smoking Packs Smoked per Day Smoking Cessation Date was Yes - quit smoking within 15 11/06/24 03:38 within the last 15 years years Hx Smoking Cessation Date 04/01/23 11/06/24 03:38 Hx Smoking Cessation Yes 11/06/24 03:38 Counseling Hematologic Medial History 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 Hx of Blood Transfusion Yes 11/06/24 03:38 [...] confused, unrespo /Reproduction History /Reproductive History - 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 He originally presented to [facility] ED on 04/11/2024 with c/o hematochezia and [...] positive, MSI stable. Pathologic staging pT4 pN2b. [facility] Medical History Encounter for education Pre-op testing [...] % (Auto) Cancelled, Lymph % (Auto) Cancelled, Mower % (Auto) Cancelled, Eos % (Auto) Cancelled, [...] Drop Cells Cancelled, Ovalocytes Cancelled, Stomatocytes Cancelled, [place] Bodies Cancelled, [place] Cells Cancelled, Bite Cells Cancelled, Crenated Cell [...] 76.8 H, Lymph % (Auto) 12.9 L, Mower % (Auto) 8.9, Eos % (Auto) 0.6, [...] 74.5 H, Lymph % (Auto) 13.7 L, Mower % (Auto) 9.8, Eos % (Auto) 1.4, [...] 78.1 H, Lymph % (Auto) 9.1 L, Mower % (Auto) 11.9 H, Eos % (Auto) [...] stable findings as described above. [facility] & Plan Assessment/Plan (1) GI (gastrointestinal [...] s igmoidoscopy. Charges/Coding Visit Charges Inpatient E&M: [address] Init Hosp L3 11/06/24 2994 Cosigner Signature (if applicable): CC: SOLE CONDITIONERCatherine Olson~ Signed [facility]04-08-2025 Progress note Author Stevie Harrington [facility] Note Date/Time November 06, 2024 2:48 pm [facility] Medical Records Department [address] [place] [address] Progress Note - Hospitalist 11/06/24726 MR#: [id number] Acct: [id number] Name: CHRISJARED Rodrigues Rep #:[id number] : 1945 79 From: Stevie Harrington DO PCP: MARYAM Guerra Status:ADM IN Location: [place] [address] Reason for Visit Reason for Visit: Diagnoses [...] % (Auto) Cancelled, Lymph % (Auto) Cancelled, Mower % (Auto) Cancelled, Eos % (Auto) Cancelled, [...] Drop Cells Cancelled, Ovalocytes Cancelled, Stomatocytes Cancelled, [place] Bodies Cancelled, [place] Cells Cancelled, Bite Cells Cancelled, Crenated Cell [...] 76.8 H, Lymph % (Auto) 12.9 L, Mower % (Auto) 8.9, Eos % (Auto) 0.6, [...] 74.5 H, Lymph % (Auto) 13.7 L, Mower % (Auto) 9.8, Eos % (Auto) 1.4, [...] stable findings as described above. Reading Location: [facility] Physical Exam Const alert and no apparent [...] at bedside. Charges/Coding Visit Charges Inpatient E&M: 60632 Subs Hosp L2 11/06/24 1448 <Electronically signed by Stevie Harrington DO> Cosigner Signature (if applicable): CC: ~ Signed [facility] Work Phone: 1(700) 396-962504-08-2025 Progress note [facility] Medical Records Department [address] [facility] [place] [address] Progress Note - Hospitalist 11/06/24726 MR#: [id number] Acct: [id number] Name: JARED RAYMOND Rep #:[id number] : 1945 79 From: Stevie Harrington DO PCP: MARYAM Guerra Status:ADM IN Location: [place] [address] Reason for Visit Reason for Visit: Diagnoses [...] % (Auto) Cancelled, Lymph % (Auto) Cancelled, Mower % (Auto) Cancelled, Eos % (Auto) Cancelled, [...] Drop Cells Cancelled, Ovalocytes Cancelled, Stomatocytes Cancelled, [place] Bodies Cancelled, Tani Cells Cancelled, Bite Cells [...] 76.8 H, Lymph % (Auto) 12.9 L, Mower % (Auto) 8.9, Eos % (Auto) 0.6, [...] 74.5 H, Lymph % (Auto) 13.7 L, Mower % (Auto) 9.8, Eos % (Auto) 1.4, [...] stable findings as described above. Reading Location: [facility] Physical Exam Const alert and no apparent [...] at bedside. Charges/Coding Visit Charges Inpatient E&M: 78484 Subs Hosp L2 11/06/24 0692 Cosigner Signature (if applicable): CC: ~ Signed [facility]04-08-2025 History and physical note Author Darrel Sanders [facility] Note Date/Time November 06, 2024 6:56 am [facility] Medical Records Department [address] [place] [address] H&P Exam - Hospitalist 11/06/24 0145 MR#: [id number] Acct: [id number] Name: JARED RAYMOND Rep #:[id number] : 1945 79 From: Darrel Qureshi DO PCP: MARYAM Guerra Status:ADM IN Location: [place] [address] 1 HPI - General General Date of [...] of syncopal episodes who now returns to [facility] ER complaining of watery diarrhea and LGIB. [...] is expected to extend beyond 2 midnights. [facility] Medical History (Updated 11/06/24 @ 06:26 by [...] % (Auto) Cancelled, Lymph % (Auto) Cancelled, Mower % (Auto) Cancelled, Eos % (Auto) Cancelled, [...] Drop Cells Cancelled, Ovalocytes Cancelled, Stomatocytes Cancelled, [place] Bodies Cancelled, [place] Cells Cancelled, Bite Cells Cancelled, Crenated Cell [...] 76.8 H, Lymph % (Auto) 12.9 L, Mower % (Auto) 8.9, Eos % (Auto) 0.6, [...] 75 minutes. Charges/Coding Visit Charges Inpatient E&M: 71464 Init Hosp L3 11/06/24 0656 <Electronically signed by Darrel Carpenter DO> Cosigner Signature (if applicable): CC: MARYAM Olson; Dr. Darrel Carpenter DO~ Signed [facility] Work Phone: 1(176) 900-323004-08-2025 Discharge summary Author Harrison Linares [facility] Note Date/Time November 06, 2024 5:46 am [facility] Medical Records Department [address] [place] [address] Emergency Department Summary 11/06/24 MR#: [id number] Acct: [id number] Name: JARED RAYMOND Rep #:[id number] : 1945 79 From: Harrison Linares DO PCP: MARYAM Guerra Status:ADM IN Location: [address] History of Present Illness Chief Complaint: [...] blood per rectum he presents for evaluation. 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 He recommends that with his [...] H Lymph % (Auto) Cancelled 12.9 L Mower % (Auto) Cancelled 8.9 Eos % (Auto) [...] Drop Cells Cancelled Ovalocytes Cancelled Stomatocytes Cancelled Scott-[place] Bodies Cancelled Tani Cells Cancelled Bite Cells [...] stable findings as described above. Reading [facility] Management Discussion w/another healthcare provider: Hospitalist and Material Spreader Discharge Plan Dx/Rx/DC Orders Clinical Impression: GI (gastrointestinal bleed), Benign essential hypertension, Colon cancer, Hyponatremia, Diverticulosis Disposition Disposition: Acute Care Hospital [facility] Discharge Date/Time: 11/06/24 03:21 What to do if you have Problems For any increased pain, shortness of breath, bleeding, nausea or vomiting, chestpain, or any unexpected problems, contact your Primary Care Provider. Call [facility] ([phone]) or report to the closest Emergency Room. Call 911 if necessary. 11/06/24 0546 <Electronically signed by Harrison Linares DO> Cosigner Signature (if applicable): CC: SOLE CONDITIONER-C Mariela Olson ~ Signed [facility] Work Phone: 1(581) 483-937504-08-2025 History and physical note [facility] Medical Records Department [address] [place] [address] H&P Exam - Hospitalist 11/06/24 0145 MR#: [id number] Acct: [id number] Name: JARED RAYMOND Rep #:[id number] : 1945 79 From: Darrel Qureshi DO PCP: MARYAM Guerra Status:ADM IN Location: [place] [id number]- 1 HPI - General General Date of [...] of syncopal episodes who now returns to [facility] ER complaining of watery diarrhea and LGIB. [...] is expected to extend beyond 2 midnights. [facility] Medical History (Updated 11/06/24 @ 06:26 by [...] % (Auto) Cancelled, Lymph % (Auto) Cancelled, Mower % (Auto) Cancelled, Eos % (Auto) Cancelled, [...] Drop Cells Cancelled, Ovalocytes Cancelled, Stomatocytes Cancelled, [place] Bodies Cancelled, Tani Cells Cancelled, Bite Cells [...] 76.8 H, Lymph % (Auto) 12.9 L, Mower % (Auto) 8.9, Eos % (Auto) 0.6, [...] 75 minutes. Charges/Coding Visit Charges Inpatient E&M: 79661 Init Hosp 11/06/24 0656 Cosigner Signature (if applicable): CC: MARYAM Olson; Dr. Darrel Carpenter, DO~ Signed [facility]04-08-2025 Discharge summary [facility] Medical Records Department [address] [place] [address] Emergency Department Summary 11/06/24 MR#: [id number] Acct: [id number] Name: JARED RAYMOND Rep #:[id number] : 1945 79 From: Harrison Linares DO PCP: MARYAM Guerra Status:ADM IN Location: [address] 1 HPI History of Present Illness [...] blood per rectum he presents for evaluation. 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 He recommends that with his [...] H Lymph % (Auto) Cancelled 12.9 L Mower % (Auto) Cancelled 8.9 Eos % (Auto) [...] Drop Cells Cancelled Ovalocytes Cancelled Stomatocytes Cancelled [place] Bodies Cancelled Tani Cells Cancelled Bite Cells [...] Management Discussion w/another healthcare provider: Hospitalist and Material Spreader Discharge Plan Dx/Rx/DC Orders Clinical Impression: GI (gastrointestinal bleed), Benign essential hypertension, Colon cancer, Hyponatremia, Diverticulosis Disposition Disposition: Acute Care Hospital [facility] Discharge Date/Time: 11/06/24 03:21 What to do if you have Problems For any increased pain, shortness of breath, bleeding, nausea or vomiting, chestpain, or any unexpected problems, contact your Primary Care Provider. Call [facility] ([phone]) or report tothe closest Emergency Room. Call 911 if necessary. 11/06/24 0546 Cosigner Signature (if applicable): CC: MARYAM Olson ~ Signed [facility]04-07-2025 Radiology Diagnostic study note [facility] Imaging Services [address] [place], [place] [address] CTA Abd/Pelvis W/WO Contrast MR#: [id number] Acct: [id number] Name: JARED RAYMOND Rep #: [id number] : 1945 M 79 From: Shakira Ramsey MD PCP: Mariela Olson NP-Jenifer Status: REG ER Study:CTA Abd/Pelvis W/WO Contrast Date of Ex am: 11/05/24 Exam# [id number] Ordering Dr: Erica Linares DO PROCEDURE: CTA [...] mesentery with limited distal opacification. Adrenal glands: Nemc-zitrnpy-hdvb-right adrenal thickening. Kidneys/Ureters: Symmetric bilateral renal enhancement. [...] CC: MARYAM Olson; Harrison Linares DO ~ Gate Keeper: Signed [facility]04-04-2025 Telephone encounter Note* Telephone Encounter - Filomena Rodrigues - 11/02/2024 2:30 PM EDT Patient and his daughter stopped in to talk to Jolynn Frias. 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 Please call patients daughter Teresa [phone] [facility]04-04-2025 Miscellaneous Notes* Telephone Encounter - Filomena Rodrigues - 11/02/2024 2:30 PM EDT Patient and his daughter stopped in to talk to Jolynn Frias. 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 Please call patients daughter Teresa [phone] documented [facility] Discharge summary [facility] Medical Records Department [address] [place] [address] Emergency Department Summary 10/24/24 MR#: [id number] Acct: [id number] Name: JRAED RAYMOND Rep #:[id number] : 1945 79 From: Jerry Yuen PCP: [...] Oxygen Delivery Method Room Air Room Air [facility] MDM Narrative Medical decision making narrative: [...] History obtained from others: none Consults: none [facility] Narrative: The patient was initially hemodynamically [...] Discharge home This note was generated with MyLife dictation software. It may contain incorrectwords, spelling, [...] 77.1 H Lymph % (Auto) 12.7 L Mower % (Auto) 8.4 Eos % (Auto) 1.0 [...] Clarity Clear Urine pH 8.0 Ur Specific [place] 1.010 Urine Protein 15 H Urine Glucose [...] SONOGRAPHIC EVIDENCE OF TESTICULAR TORSION. Reading Location: [facility] Discharge Plan Triage Chief Complaint: Flank Pain [...] NP-C [Primary Care Provider] - Print Language: Yakut What to do if you have Problems For any increased pain, shortness of breath, bleeding, nausea or vomiting, chestpain, or any unexpected problems, contact your Primary Care Provider. Call [facility] ([phone]) or report tothe closest Emergency Room. Call 911 if necessary. 10/24/242033 Cosigner Signature (if applicable): CC: MARYAM Olson ~ Signed [facility]03-26-2025 Radiology Diagnostic study note [facility] Imaging Services [address] [place], [place] [address] Testicular with Arterial Flow MR#: [id number] Acct: [id number] Name: JARED RAYMOND Rep #: [id number] : 1945 M 79 From: Vanessa Rosado MD PCP: MARYAM Guerra Status: REG ER Study:Testicular with Arterial Flow Date of E xam: 10/24/24 Exam# [id number] Ordering Dr: Robby Hightower DO PROCEDURE: TESTICULAR [...] SONOGRAPHIC EVIDENCE OF TESTICULAR TORSION. Reading Location: [id number] CC: SOLE CONDITIONER-C Mariela Olson; Dr. Jerry Hightower, DO ~ Gate Keeper: Signed [facility]03-26-2025 Radiology Diagnostic study note [facility] Imaging Services [address] [place] [address] Abdomen/Pelvis W IV Cont ONLY MR#: [id number] Acct: [id number] Name: JARED RAYMOND Rep #: [id number] : 1945 M 79 From: Vanessa Rosado MD PCP: MARYAM Guerra Status: REG CLI Study:Abdomen/Pelvis W IV Cont ONLY Date of E xam: 10/24/24 Exam# [id number] Ordering Dr: Thang Hernandez MD PROCEDURE: ABDOMEN/PELVIS [...] excluded. Attentionon follow-up imaging recommended. Reading Location: [id number] CC: MARYAM Olson; Dr. Papi Hernandez MD ~ Gate Keeper: Signed [facility]03-26-2025 Discharge summary Author Jerry Hightower [facility] Note Date/Time October 24, 2024 8:3 4pm [facility] Medical Records Department [address] [place] [address] Emergency Department Summary 10/24/24 MR#: [id number] Acct: [id number] Name: JARED RAYMOND Rep #:[id number] : 1945 79 From: Jerry Yuen PCP: MARYAM Guerra Status:REG ER Location: ED HPI History of Present Illness Chief Complaint: Flank Pain [facility] Medical History (Updated 10/24/24 @ 19:59 by [...] Oxygen Delivery Method Room Air Room Air [facility] MDM Narrative Medical decision making narrative: [...] Discharge home This note was generated with Evostoration software. It may contain incorrectwords, spelling, and [...] 77.1 H Lymph % (Auto) 12.7 L Mower % (Auto) 8.4 Eos % (Auto) 1.0 [...] Clarity Clear Urine pH 8.0 Ur Specific [place] 1.010 Urine Protein 15 H Urine Glucose [...] SONOGRAPHIC EVIDENCE OF TESTICULAR TORSION. Reading Location: [facility] Discharge Plan Triage Chief Complaint: Flank Pain [...] MARYAM [Primary Care Provider] - Print Language: Yakut What to do if you have Problems For any increased pain, shortness of breath, bleeding, nausea or vomiting, chestpain, or any unexpected problems, contact your Primary Care Provider. Call [facility] ([phone]) or report to the closest Emergency Room. Call 911 if necessary. 10/24/242033 <Electronically signed by Jerry Hightower DO> Cosigner Signature (if applicable): CC: SOLE CONDITIONERCatherine Olson ~ Signed [facility] Work Phone: 1(244) 608-698203-19-2025 Evaluation note* Diagnosis Onset Date Resolution Status [...] metastasis present chronic December 04, 2024 11:24am [facility] Work Phone: 1(633) 480-733003-19-2025 Evaluation note* Diagnosis Onset Date Resolution Status [...] node metastasis present chronic January 09 3:16pm [facility] Work Phone: 1(280) 517-369802-07-2025 History of Present illness Narrative* Encounter Date [...] seldom monitors, usually can tell by his TeraDiode puzzles. (+) eye vitamin PO Vision seems [...] Referred by Julissa Yap O.D. at [facility]. Wears OTC readers. Straight lines appear wavy in OS. [facility] Work Phone: 1(427) 604-665601-08-2025 Evaluation note* Diagnosis Onset Date Resolution Status [...] 2:56am GI bleed acute November 18 12:59pm [facility] Work Phone: 1(351) 191-715801-08-2025 Evaluation note* Diagnosis Onset Date Resolution Status [...] 2024 12:59pm Rectal bleeding acute October 12:59pm [facility] Work Phone: 1(457) 713-585701-08-2025 Evaluation note* Diagnosis Onset Date Resolution Status [...] metastasis present chronic December 04, 2024 11:24am [facility] Work Phone: 1(495) 797-119412-18-2024 Evaluation note* Diagnosis Onset Date Resolution Status [...] lymph node chronic November 06, 2024 2:56am [facility] Work Phone: 1(236) 668-335212-18-2024 Evaluation note* Diagnosis Onset Date Resolution Status [...] lymph node chronic November 06, 2024 2:56am [facility] Work Phone: 1([phone]) [phone] Instructions* Date Instruction Additional Infor mation 7-8 [...] hemorrhage, left eye [facility] Work Phone: 1(771) 282-145012-04-2024 Evaluation note* Diagnosis Onset Date Resolution Status [...] 19, 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 October 17, 2024 2:04pm [facility] Work Phone: 1(280) 620-794311-22-2024 [facility]11-18-2024 [facility]11-10-2024 [facility] 05-01-2024 [facility]09-27-2024 [facility]09-15-2024 [facility]07-25-2022 Miscellaneous Notes * Telephone Encounter - Michela Saucedo - 02/22/2022 3:14 PM EDT Patient arrived at the [facility] in [place], [place] requesting an appointment to become established with a new PCP in this region. The patient reports having similar symptoms in the right upper extremity that he experienced prior to his quintuple bypass surgery. He was provided the phone number and name of the cardiac surgeon and was scheduled to see Dr. Chapman 05/28/22. Please advise patient if he should follow up with salesperson florist supplies prior to PCP visit. documented in this encounterC[facility]12-19-2019 History of Past illness Narrative* Problem Noted Date Resolved Date On mechanically assisted ventilation 07/19/2019 07/20/2019 Overview: Grade I airway A/P- WTE Stress hyperglycemia 07/19/2019 07/21/2019 Overview: H: Post op A/P-No h/o DM. [place]-operative insulin resistance and exacerbation of hyperglycemia. RHI drip per ICU protocol, transition to SSI documented as of this encounter (statuses as of 02/22/2022) [facility] Clinical Note Date No Information [facility] Work Phone: Consult note Author Kush Daniel [facility] Note Date/Time November 20, 2024 1:4 3pm [facility] Medical Records Department [address] [place] [address] Counseling Note - Pharmacy 11/20/24 1342 MR#: [id number] Acct: [id number] Name: JARED RAYMOND Rep #:[id number] : 1945 79 From: Kush Daniel PCP: MARYAM Guerra Status:ADM IN Y Location: [place] [address] [place] [facility] Pharmacy Service has performed discharge [...] Signature (if applicable): Date CC: ~ Signed [facility] Work Phone: Discharge summary* Clinical Note Date No Information [facility] Work Phone: Discharge summary Author Stevie Harrington [facility] Note Date/Time November 07, 2024 5:07 pm [facility] Medical Records Department [address] [place] [address] Discharge Summary 11/07/24 1655 MR#: [id number] Acct: [id number] Name: JARED RAYMOND Rep #:[id number] : 1945 79 From: Stevie Harrington DO PCP: MRAYAM Guerra Status:ADM IN Location: [place] [id number]- 1 Providers Date of Admission: 11/06/24 Primary Care Physician: MARYAM Guerra Consultations 11/06/24 03:28 Consult: Gastroenterology Routine Consulting Provider: [facility] Reason for Consult: LGIB with BRBPR; [...] 70.4 H, Lymph % (Auto) 14.8 L, Mower % (Auto) 12.5 H, Eos % (Auto) [...] Self Care Charges/Coding Visit Charges Inpatient E&M: 40798 Disch Hosp >30min 11/07/24 1707 <Electronically signed by Stevie Harrington DO> Cosigner Signature (if applicable): CC: MARYAM Olson; Dr. Stevie Harrington DO~ Signed [facility] Work Phone: Evaluation noteNo assessment information available [facility] Work Phone: Evaluation note* Diagnosis Onset Date Resolution Status Acute alteration in mental status acute Elevated troponin acute Chronic hypertension chronic [facility] Work Phone: Evaluation note* Diagnosis Onset Date Resolution Status Elevated troponin acute Chronic hypertension chronic Hypertensive emergency witho ut congestive heart failure resolved [facility] Work Phone: Evaluation note* Type Assessment Date [...] begin a bowel regimen which will include dddb-mas-psjskrl medicine such as senna, Colace and MiraLAX. Please return to the emergency department if your symptoms change or worsen. 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 Advance Directive(s) 07/18/2019 4:40 PM Advance Directive(s) 07/12/2019 2:31 PM Advance Directive(s) 05/14/2019 8:30 AM Advance Directive Response Recorded Date/ Time Advance Directives No October 31 11:26am Living Will Yes March 06, 2018 2:30pm Power of Extruding Press Adjuster No March 06 2:30pm Advance Directive Response Recorded Date/ Time Advance Directives No October 31 10:26am Living Will Yes August 15 6:13pm Power of Extruding Press Adjuster Yes August 15, 2023 6:13pm Name of Medical Power of Extruding Press Adjuster [place] August 15, 2023 6:13pm Advance Directive Response Recorded Date/ Time Name of Medical Power of Extruding Press Adjuster SPRING RAYMOND August 15, 2023 11:26pm Advance Directives No October 31 11:26am Living Will No December 11, 2023 2 :44am Power of Extruding Press Adjuster No December 11, 2023 2:44am Directive Yes / No Effective Date File Name No Information Advance Directive Response Recorded Date/ Time Living Will Yes April 12, 2024 2:59am Do you have a Healthcare Power of Extruding Press Adjuster? Yes April 12, 2024 2:59am Living Will Yes April 27, 2024 2:58pm Do you have a Healthcare Power of Extruding Press Adjuster? Yes April 27, 2024 2:58pm Living Will Yes October 24, 2024 6:01pm Do you have a Healthcare Power of Extruding Press Adjuster? Yes October 24, 2024 6:01pm Name of Medical Power of Extruding Press Adjuster October 24, 2024 6:01pm Advance Directives No October 31 11:26am Advance Directive Response Recorded Date/ Time Living Will Yes April 12, 2024 2:59am Do you have a Healthcare Power of Extruding Press Adjuster? Yes April 12, 2024 2:59am Living Will Yes April 27, 2024 2:58pm Do you have a Healthcare Power of Extruding Press Adjuster? Yes April 27, 2024 2:58pm Living Will Yes October 24, 2024 6:01pm Do you have a Healthcare Power of Extruding Press Adjuster? Yes October 24, 2024 6:01pm Name of Medical Power of Extruding Press Adjuster October 24, 2024 6:01pm Living Will No November 05, 2024 10:42pm Do you have a Healthcare Power of Extruding Press Adjuster? No November 05, 2024 10:42pm Advance Directives No October 31 11:26am Advance Directive Response Recorded Date/ Time Living Will Yes April 12, 2024 2:59am Do you have a Healthcare Power of Extruding Press Adjuster? Yes April 12, 2024 2:59am Living Will Yes April 27, 2024 2:58pm Do you have a Healthcare Power of Extruding Press Adjuster? Yes April 27, 2024 2:58pm Living Will Yes October 24, 2024 6:01pm Do you have a Healthcare Power of Extruding Press Adjuster? Yes October 24, 2024 6:01pm Name of Medical Power of Extruding Press Adjuster October 24, 2024 6:01pm Living Will No November 06, 2024 3:38am Do you have a Healthcare Power of Extruding Press Adjuster? No November 06, 2024 3:38am Advance Directives No October 31 11:26am Advance Directive Response Recorded Date/ Time Living Will Yes April 12, 2024 2:59am Do you have a Healthcare Power of Extruding Press Adjuster? Yes April 12, 2024 2:59am Living Will Yes April 27, 2024 2:58pm Do you have a Healthcare Power of Extruding Press Adjuster? Yes April 27, 2024 2:58pm Living Will No November 18, 2024 10:49am Do you have a Healthcare Power of Extruding Press Adjuster? No November 18, 2024 10:49am Living Will Yes October 24, 2024 6:01pm Do you have a Healthcare Power of Extruding Press Adjuster? Yes October 24, 2024 6:01pm Name of Medical Power of Extruding Press Adjuster October 24, 2024 6:01pm Living Will No November 06, 2024 3:38am Do you have a Healthcare Power of Extruding Press Adjuster? No November 06, 2024 3:38am Advance Directives No October 31 11:26am Advance Directive Response Recorded Date/ Time Living Will Yes April 12, 2024 2:59am Do you have a Healthcare Power of Extruding Press Adjuster? Yes April 12, 2024 2:59am Living Will Yes April 27, 2024 2:58pm Do you have a Healthcare Power of Extruding Press Adjuster? Yes April 27, 2024 2:58pm Living Will No November 18, 2024 3:46pm Do you have a Healthcare Power of Extruding Press Adjuster? No November 18, 2024 3:46pm Living Will Yes October 24, 2024 6:01pm Do you have a Healthcare Power of Extruding Press Adjuster? Yes October 24, 2024 6:01pm Name of Medical Power of Extruding Press Adjuster October 24, 2024 6:01pm Living Will No November 06, 2024 3:38am Do you have a Healthcare Power of Extruding Press Adjuster? No November 06, 2024 3:38am Advance Directives No October 31 11:26am Advance Directive Response Recorded Date/ Time Living Will Yes April 12, 2024 2:59am Do you have a Healthcare Power of Extruding Press Adjuster? Yes April 12, 2024 2:59am Living Will Yes April 27, 2024 2:58pm Do you have a Healthcare Power of Extruding Press Adjuster? Yes April 27, 2024 2:58pm Living Will No November 18, 2024 3:46pm Do you have a Healthcare Power of Extruding Press Adjuster? No November 18, 2024 3:46pm Living Will Yes October 24, 2024 6:01pm Do you have a Healthcare Power of Extruding Press Adjuster? Yes October 24, 2024 6:01pm Name of Medical Power of Extruding Press Adjuster October 24, 2024 6:01pm Living Will No November 06, 2024 3:38am Do you have a Healthcare Power of Extruding Press Adjuster? No November 06, 2024 3:38am Living Will No January 14, 2025 9:01am Do you have a Healthcare Power of Extruding Press Adjuster? No January 14, 2025 9:01am Advance Directives [...] November 20, 2024 1:2 2pm F/U FROM [facility] TO DR Olivares October 10:59am RE-EVALUATE November [...] November 20, 2024 1:2 2pm F/U FROM [facility] TO DR Olivares October 10:59am RE-EVALUATE November [...] or prosecute any alcohol or drug abuse patient.[facility] the event this information is protected by the Federal Confidentiality of Alcohol and Drug Abuse Patient Records regulations: The Federal rules restrict any use of the information to criminally investigate or prosecute any alcohol or drug abuse patient.[facility] Reason for Visit (unrecogniz ed section and content) Reason Comments Patient Question Care Teams (unrecognized sec tion and content) 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 Neville Islas DO Family Provider Active Mariela Shahram , SOLE CONDITIONER-C Primary Care Provider Active Team Status: Inactive [...] Member Role Status Dates Mariela Olson , SOLE CONDITIONER-C Primary Care Provider Active Team Status: Inactive Member Role Status Dates Mariela Olson , SOLE CONDITIONER-C Primary Care Provider Active Start: July 04, 2024 End: July 04, 2024 Mariela Olson , SOLE CONDITIONER-C Referring Provider Active St art: July 04, 2024 End: July 04, 2024 Dr. Papi Hernandez MD Attending Provider Active S tart: July 04, 2024 End: July 04, 2024 Team Status: Inactive Member Role Status Dates Mariela Olson , SOLE CONDITIONER-C Primary Care Provider Active Start: July 18, 2024 End: July 18, 2024 Mariela Olson , SOLE CONDITIONER-C Referring Provider Active St art: July 18, 2024 End: July 18, 2024 Selam Craig NP, SOLE CONDITIONER-C Attending Provider Active Start: July 18, 2024 End: July 18, 2024 Team Status: Inactive Member Role Status Dates Marielabruce Olson , SOLE CONDITIONER-C Primary Care Provider Active Start: August 08, 2024 End: August 08, 2024 Mariela Olson , SOLE CONDITIONER-C Referring Provider Active St art: August 08, 2024 End: August 08, 2024 Dr. Papi Hernandez MD Attending Provider Active S tart: August 08, 2024 End: August 08, 2024 Team Status: Inactive Member Role Status Dates Mariela Shahram , SOLE CONDITIONER-C Primary Care Provider Active Start: September 05, 2024 End: September 05, 2024 Mariela Olson , SOLE CONDITIONER-C Attending Provider Active St art: September 05, 2024 End: September 05, 2024 Team Status: Inactive Member Role Status Dates Marielabruce Olson , SOLE CONDITIONER-C Primary Care Provider Active Start: October 17, 2024 End: October 17, 2024 Mariela Olson , SOLE CONDITIONER-C Referring Provider Active St art: October 17, 2024 End: October 17, 2024 Malinda Webster SOLE CONDITIONER, SOLE CONDITIONER-C Attending Provider Active S tart: October 17, 2024 End: October 17, 2024 Team Status: Active Member Role Status Dates Mariela Olson , SOLE CONDITIONER-C Primary Care Provider Active Start: October 17, 2024 Malinda Webster SOLE CONDITIONER, SOLE CONDITIONER-C Attending Provider Active S tart: October 17, 2024 Malinda Webster SOLE CONDITIONER, SOLE CONDITIONER-C Referring Provider Active S tart: October 17, 2024 Team Status: Active Member Role Status Dates Mariela Olson , SOLE CONDITIONER-C Primary Care Provider Active Start: October 24, 2024 Dr. Papi Hernandez MD Attending Provider Active S tart: October 24, 2024 Dr. Papi Hernandez MD Referring Provider Active S tart: October 24, 2024 Team Status: Inactive Member Role Status Dates Mariela Olson SOLE CONDITIONER-C Primary Care Provider Active Start: October 24, 2024 End: October 24, 2024 Dr. Jerry Hightower DO Emergency Provider Active Start: October 24, 2024 End: October 24, 2024 Team Status: Inactive Member Role Status Dates Mariela Olson , SOLE CONDITIONER-C Primary Care Provider Active Start: October 17, 2024 End: October 17, 2024 Malinda Webster SOLE CONDITIONER, SOLE CONDITIONER-C Attending Provider Active S tart: October 17, 2024 End: October 17, 2024 Malinda Webster SOLE CONDITIONER, SOLE CONDITIONER-C Referring Provider Active S tart: October 17, 2024 End: October 17, 2024 Team Status: Inactive Member Role Status Dates Mariela Olson , SOLE CONDITIONER-C Primary Care Provider Active Start: October 24, 2024 End: October 24, 2024 Dr. Papi Hernandez MD Attending Provider Active S tart: October 24, 2024 End: October 24, 2024 Dr. Papi Hernandez MD Referring Provider Active S tart: October 24, 2024 End: October 24, 2024 Team Status: Inactive Member Role Status Dates Mariela Olson SOLE CONDITIONER-C Primary Care Provider Active Start: October 24, 2024 End: October 24, 2024 Dr. Jerry Hightower DO Attending Provider Active Start: October 24, 2024 End: October 24, 2024 Dr. Jerry Hightower DO Emergency Provider Active Start: October 24, 2024 End: October 24, 2024 Team Status: Inactive Member Role Status Dates Mariela Olson , SOLE CONDITIONER-C Primary Care Provider Active Start: October 31, 2024 End: October 31, 2024 Mariela Olson SOLE CONDITIONER-C Referring Provider Active St art: October 31, 2024 End: October 31, 2024 Dr. Papi Hernandez MD Attending Provider Active S tart: October 31, 2024 End: October 31, 2024 Team Status: Active Member Role Status Dates Mariela Olson , SOLE CONDITIONER-C Primary Care Provider Active Start: November 06, 2024 Dr. Harrison Linares , DO Emergency Provider Active Start: November 06, 2024 Dr. Darrel Carpenter , DO Admit Provider Active Start: November 06, 2024 Dr. Darrel Carpenter , DO Attending Provider Active Start: November 06, 2024 Team Status: Inactive Member Role Status Dates Mariela Olson , SOLE CONDITIONER-C Primary Care Provider Active Start: November 06, [...] Member Role Status Dates Mariela Olson , SOLE CONDITIONER-C Primary Care Provider Active Start: November 06, [...] Member Role Status Dates Mariela Olson , SOLE CONDITIONER-C Primary Care Provider Active Start: November 07, 2024 Dr. Harrison Linares , DO Emergency Provider Active Start: November 07, 2024 Dr. Darrel Carpenter , DO Admit Provider Active Start: November 07, 2024 Dr. Darrel Carpenter , DO Other Provider Active Start: November 07, 2024 Dr. Stevie aHrrington , DO Attending Provider Active Start: November 07, 2024 Dr. Stevie Harrington , DO Other Provider Active Star t: November 07, 2024 Team Status: Active Member Role Status Dates Mariela Olson , SOLE CONDITIONER-C Primary Care Provider Active Start: November 06, [...] Active Member Role Status Dates Mariela Olson SOLE CONDITIONER-C Primary Care Provider Active Start: November 07, 2024 End: November 07, 2024 Dr. Adrian Flores MD Attending Provider Active S tart: November 07, 2024 End: November 07, 2024 Dr. Adrian Flores MD Referring Provider Active S tart: November 07, 2024 End: November 07, 2024 Team Status: Active Member Role Status Dates Mariela Olson SOLE CONDITIONER-C Primary Care Provider Active Start: November 18, 2024 Dr. Lazaro Sharp MD Emergency Provider Active Sta rt: November 18, 2024 Dr. Kelvin Schrader MD Admit Provider Active Start: November 18, 2024 Dr. Kelvin Schrader MD Attending Provider Active Start: November 18, 2024 Dr. Kelvin Schrader MD Referring Provider Active Start: November 18, 2024 Team Status: Inactive Member Role Status Dates Mariela Olson , SOLE CONDITIONER-C Primary Care Provider Active Start: November 18, [...] Active Member Role Status Dates Mariela Olson SOLE CONDITIONER-C Primary Care Provider Active Start: November 18, [...] Active Member Role Status Dates Mariela Olson SOLE CONDITIONER-C Primary Care Provider Active Start: November 19, [...] Active Member Role Status Dates Mariela Olson SOLE CONDITIONER-C Primary Care Provider Active Start: November 19, [...] Active Member Role Status Dates Mariela Olson SOLE CONDITIONER-C Primary Care Provider Active Start: November 18, [...] Inactive Member Role Status Dates Mariela Olson SOLE CONDITIONER-C Primary Care Provider Active Start: November 28, 2024 End: November 28, 2024 Mariela Olson NP-Jenifer Referring Provider Active St art: November 28, 2024 End: November 28, 2024 Dr. Brenda Araujo MD Attending Provider Active Start: November 28, 2024 End: November 28, 2024 Team Status: Inactive Member Role Status Dates Mariela Olson SOLE CONDITIONER-C Primary Care Provider Active Start: November 28, 2024 End: November 28, 2024 Malinda Webster NP, SOLE CONDITIONER-C Attending Provider Active S tart: November 28, 2024 End: November 28, 2024 Malinda Webster SOLE CONDITIONER, SOLE CONDITIONER-C Referring Provider Active S tart: November 28, 2024 End: November 28, 2024 Team Status: Active Member Role Status Dates Marielabruce Olson , SOLE CONDITIONER-C Primary Care Provider Active Start: November 28, 2024 Dr. Adrian Flores MD Attending Provider Active S tart: November 28, 2024 Team Status: Inactive Member Role Status Dates Mariela Shahram , SOLE CONDITIONER-C Primary Care Provider Active Start: November 30, 2024 End: November 30, 2024 Dr. Brenda Araujo MD Attending Provider Active Start: November 30, 2024 End: November 30, 2024 Dr. Brenda Araujo MD Referring Provider Active Start: November 30, 2024 End: November 30, 2024 Team Status: Inactive Member Role Status Dates Marielabruce Olson , SOLE CONDITIONER-C Primary Care Provider Active Start: December 04, 2024 End: December 04, 2024 Mariela Olson , SOLE CONDITIONER-C Referring Provider Active St art: December 04, 2024 End: December 04, 2024 Dr. Ari Silvestre DO Attending Provider Active Start: December 04, 2024 End: December 04, 2024 Team Status: Active Member Role Status Dates Mariela Olson , SOLE CONDITIONER-C Primary Care Provider Active Start: December 05, 2024 Dr. Brenda Araujo MD Attending Provider Active Start: December 05, 2024 Dr. Brenda Araujo MD Referring Provider Active Start: December 05, 2024 Team Status: Inactive Member Role Status Dates Mariela Olson , SOLE CONDITIONER-C Primary Care Provider Active Start: December 05, 2024 End: December 05, 2024 Dr. Brenda Araujo MD Attending Provider Active Start: December 05, 2024 End: December 05, 2024 Dr. 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 Adrian Flores MD Attending Provider Active S tart: January 06, 2025 Dr. Adrian Flores MD Referring Provider Active S tart: January 06, 2025 Dr. Adrian Flores MD Other Provider Active Start : January 06, 2025 Team Status: Inactive Member Role Status Dates MARYAM Guerra Primary Care Provider Active Start: January 14, 2025 End: January 14, 2025 Dr. Adrian Flores MD Attending Provider [...] section and content) DATE CREATED AUTHOR 01/14/2025 [facility] DATE CREATED AUTHOR AUTHOR'S ORGANIZ ATION 01/14/2025 [facility] DATE CREATED AUTHOR AUTHOR'S ORGANIZ ATION 01/24/2025 [facility] DATE CREATED AUTHOR AUTHOR'S ORGANIZ ATION 02/07/2025 [facility] tem [facility] FOR RECORDS PERTAINING TO PATIENTS [...] BE BASED ON THE PRIMARY CLINICAL RECORDS. [facility] Link To Media [facility]. provides no warranty or guarantee of the accuracy or completeness of information in this document.
[2025-02-10 23:09] LABS: Hematocrit 30.3 % (40-54); Hemoglobin 10.3 g/dL (13.0-16.5); Immature Granulocytes Count 0.020 X10^3/uL (0.0-0.0); Mean Corp Hgb Conc 34.0 g/dL (32-36); Mean Corpuscular Volume 84.6 fL (80-94); Mean Platelet Vol. 10.2 fl (6.2-12.0); NRBC Flagged by Analyzer 0 % (0-5); POSITIVE DIFFERENTIAL YES; Platelet Count 266 K/mm3 (150-450); RBC Distribution Width CV 15.2 % (11.6-14.6); RBC Distribution Width SD 47.2 fl (35.1-43.9); Red Blood Count 3.58 M/mm3 (4.6-6.2); White Blood Count 7.3 K/mm3 (4.4-11.0)
[2025-02-10 23:13] LABS: Mucous, Urine 0 SEEN /hpf (<or=2+)
[2025-02-10 23:18] LABS: Color, Urine Yellow (Yellow); Glucose, Dipstick Normal (Normal); Ketone-Dipstick Negative (Negative); Leukocyte Esterase-Dipstick 25 /ul (Negative); Nitrite-Dipstick Negative (Negative); Occult Blood-Urine 10 /ul (Negative); Protein-Dipstick 30 mg/dl (Negative); Specific Gravity, Urine 1.015 (1.002-1.030)
[2025-02-10 23:25] LABS: Prothrombin Time (Protime)PT. 13.6 SECONDS (11.7-14.9); Urine Bilirubin Dipstick 3 mg/dL (Negative)
[2025-02-10 23:26] LABS: Partial Thromboplast Time 28.2 Seconds (24.1-36.2); Red Blood Cells-Urine 0-5 SEEN /hpf (0-5)
[2025-02-10 23:28] LABS: Squamous Epithelial Cells - UA 0-5 SEEN /hpf (0-5)
[2025-02-10 23:39] LABS: Lipase 141 U/L (13-75)
[2025-02-10 23:40] LABS: AST(SGOT) 132 U/L (<=37); Alanine Aminotransfer ALT/SGPT 160 U/L (<=46); Albumin, Serum 3.8 g/dL (3.4-4.8); Alkaline Phosphatase 516 U/L (40-129); Anion Gap 13 (5-15); BUN 10 mg/dL (4-19); BUN/Creat Ratio 11.2 RATIO (10-20); Bilirubin, Direct 5.21 mg/dL (0.00-0.30); Calcium,Total 8.9 mg/dL (7.6-11.0); Carbon Dioxide 19.0 mmol/L (21.0-32.0); Chloride 92 mmol/L (98-108); Estimated Creatinine Clearance 63.31 ml/min (50-250); Globulin 2.7 g/dL (2.2-4.2); Glucose 120 mg/dL (70-99); Potassium 3.9 mmol/L (3.3-5.1)
[2025-02-10 23:48] LABS: Ammonia 25.6 umol/L (16-60)
[2025-02-11] VITALS (12 sets, daily range): BP systolic 152–188; BP diastolic 64–87; PULSE 73–89; RESP 14–18; TEMP 36.6–36.8; O2SAT 94–100
--- NOTE | 2025-02-11 02:24 | PCM.HP.STD ---
HPI - General General Date of Admission: 02/11/25 Date of Service: 02/11/25 Chief Complaint: Worsening abdominal distention HPI Narrative JARED PEREZ, is a 79 M who presented to [facility] ED on 02/11/2025 with worsening abdominal distention. Medical history is significant for colon cancer with liver metastases. Patient follows with Dr. Araujo, last saw him in the office on 01/09. Dr. Araujo noted that his CT imaging in October showed multiple liver lesions and progressive abdominal lymphadenopathy consistent with progression of his metastatic disease, and his CEA has been continually rising. Liver biopsy in November confirmed metastatic adenocarcinoma. Was noted that patient is elderly, frail and has suboptimal performance status and thus is not a candidate for systemic chemotherapy. Patient and were agreeable to pursuing palliative care with eventual transition to home hospice. Patient presents today with worsening abdominal distention with poor appetite over the past several days. Labs on admit notable for T. bili 7.4, direct bili 5.2, AST 132, ALT 160, alk phos 516. LFTs were previously normal in November. Sodium low at 124 but INR was normal at 1.0. CT abdomen pelvis showed worsening liver metastatic disease with interval development of large ascites likely malignant and interval dilation of the biliary tree without obstructing lesion visualized. Given concern for impending liver failure due to metastatic cancer, hospitalist was contacted for admission. I saw the patient at bedside in the ED, was present. Patient was jaundiced and mildly fatigued appearing but otherwise sitting back comfortably in bed and in no acute distress. He was alert and oriented x 3 and answering questions appropriately. They noted that palliative care was set up for them last week and he has not transitioned to hospice care. I informed them that it appears that patient has impending liver failure secondary to his metastatic cancer which is not curable. As noted above, patient is not a candidate for chemotherapy given his poor functional status. I noted that my recommendation at this time would be for hospice care. Patient family would like to pursue home hospice care if possible. They also inquired about paracentesis for symptom management and I noted that this is reasonable and radiology will be consulted for therapeutic paracentesis. Will be admitted for further management. 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 Chronic hypertension Acute alteration in mental status Neuropathy Vasectomy planned Hyponatremia TIA (transient ischemic attack) CVA (cerebral vascular accident) Hypertension History of stroke Tobacco use Benign essential hypertension Home Medications ?Medication ?Instructions ?Recorded ?Last Taken ?Type amlodipine 5 mg tablet 5 mg PO DAILY HEART 05/16/24 11/05/24 History clonidine HCl 0.1 mg tablet 0.1 mg PO DAILY PRN hbp 06/08/24 10/06/24 History ferrous sulfate 325 mg (65 mg 325 mg PO DAILY 30 days #60 tabs 06/10/24 11/05/24 Rx iron) tablet (Iron (ferrous sulfate)) metoprolol tartrate 50 mg tablet 25 mg PO QDAY Blood pressure/heart 10/17/24 11/05/24 History rat oxycodone 5 mg tablet 5 mg PO Q4H PRN pain 7 days #30 01/15/25 Unknown Rx tabs Allergy/AdvReac Type Severity Reaction Status Date / Time No Known Allergies Allergy Verified 02/10/25 21:35 Family History Father Arthritis Alcohol abuse Mother Alcohol abuse Liver disease Surgical History History of hemicolectomy (04/25/24) H/O vasectomy S/P right hemicolectomy History of tonsillectomy History of appendectomy 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) Social History Smoking Status: Former smoker Tobacco: How many years used: 15 alcohol intake: never substance use type: does not use ROS Constitutional Constitutional: Reports fatigue; Denies chills or fever(s) Eyes Eyes: Denies change in vision Cardiovascular Cardiovascular: Denies chest pain Respiratory/Chest Respiratory/Chest: Denies shortness of breath at rest Gastrointestinal Gastrointestinal: Reports abdominal pain and nausea; Denies vomiting Musculoskeletal Musculoskeletal: Denies arthralgias or myalgias Vital Signs Vital Signs Vital Signs: 02/10/25 21:34 02/11/25 00:52 02/11/25 01:06 Temperature 98.7 F Temperature Source Oral Pulse Rate 102 H 77 Respiratory Rate 16 16 Respiratory Pattern Normal Blood Pressure 178/93 H 164/79 H Blood Pressure Mean 121 107 Pulse Ox 99 94 Oxygen Delivery Method Room Air Room Air Weight Weight: 72.121 kg Body Mass Index (BMI) 24.9 Physical Exam Const alert, oriented x3, no apparent distress and average body habitus Constitutional Narrative: Elderly male, jaundiced, mildly fatigued appearing but otherwise laying back fairly comfortably in bed, answering questions appropriately, in no acute distress. General Appearance: cooperative and comfortable HEENT normocephalic, head/scalp atraumatic, hearing grossly normal bilaterally, nasal mucous membranes and turbinates normal and moist oral mucous membranes Eyes PERRL and EOMs intact bilaterally Eyes Narrative: Scleral icterus noted. Neck full ROM Chest inspection of chest normal Resp normal respiratory effort, normal air movement, no use of accessory muscles and clear to auscultation bilaterally Cardio regular rate, regular rhythm, no murmurs and peripheral pulses 2+ throughout GI GI Narrative: Abdominal distention with fluid wave noted. Nontender to palpation. Back/Spine normal ROM Extremity normal to inspection, full ROM and no pedal edema Psych mental status grossly normal Results Lab / Micro Data 02/10/25 22:59 02/10/25 22:59 Labs: Laboratory Results - last 24 hr 02/10/25 22:59: WBC 7.3, RBC 3.58 L, Hgb 10.3 L, Hct 30.3 L, MCV 84.6, MCH 28.8, MCHC 34.0, RDW Std Deviation 47.2 H, RDW Coeff of Deepika 15.2 H, Plt Count 266, MPV 10.2, Immature Gran % (Auto) 0.300, Neut % (Auto) 78.1 H, Lymph % (Auto) 7.7 L, [place] % (Auto) 12.4 H, Eos % (Auto) 1.1, Baso % (Auto) 0.4, Absolute Neuts (auto) 5.7, Absolute Lymphs (auto) 0.56 L, Nucleated RBC % 0, PT 13.6, INR 1.0, APTT 28.2, Sodium 124 L, Potassium 3.9, Chloride 92 L, Carbon Dioxide 19.0 L, Anion Gap 13, BUN 10, Creatinine 0.87, Estim Creat Clear Calc 63.31, Est GFR (MDRD) Non-Af 87, BUN/Creatinine Ratio 11.2, Glucose 120 H, Calcium 8.9, Total Bilirubin 7.43 H, Direct Bilirubin 5.21 H, AST 132 H, ALT 160 H, Alkaline Phosphatase 516 H, Ammonia 25.6, Total Protein 6.5, Albumin 3.8, Globulin 2.7, Lipase 141 H, Urine Color Yellow, Urine Clarity Cloudy, Urine pH 6.0, Ur Specific [place] 1.015, Urine Protein 30 H, Urine Glucose (UA) Normal, Urine Ketones Negative, Urine Occult Blood 10 H, Urine Nitrite Negative, Urine Bilirubin 3 H, Urine Urobilinogen 1 H, Ur Leukocyte Esterase 25 H, Urine RBC 0-5 SEEN, Urine WBC 0-5 SEEN, Ur Squamous Epith Cells 0-5 SEEN, Amorphous Sediment 1+, Urine Bacteria 0 SEEN, Urine Mucus 0 SEEN Imaging Radiology Impression Chest X-Ray 02/10/25 22:46 IMPRESSION: No acute chest findings. Reading Location: [facility] Abdomen/Pelvis CT 02/11/25 22:42 IMPRESSION: Worsening liver metastatic disease. Persistent abdominal adenopathy. Interval development of large ascites likely malignant. Interval dilatation of the biliary tree without obstructing lesion visualized. Consider MRCP. 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 Interval development of proximal left-sided hydronephrosis, the ureter may be compressed by retroperitoneal adenopathy. Status post right hemicolectomy, with ileocolic anastomosis. Reading Location: [facility] Assessment & Plan Assessment/Plan (1) Acute liver failure: (2) Ascites: (3) Metastasis to liver: PLAN: Plan Patient is an 79-year-old male who presented to [facility] ED on 02/11/2025 with worsening abdominal distention. 1. Impending liver failure with ascites presumed secondary to colon cancer with liver metastases ? Admit under inpatient status to [facility]. Case management consulted. Hospice consulted. Patient with known history of colon cancer with liver mets, follows with outpatient oncology. See HPI as above for further details. Presented with worsening abdominal distention presumed secondary to malignant ascites. Labs on admit with T. bili 7.4, direct bili 5.2, AST 132, ALT 160, alk phos 516. LFTs were previously normal in November. INR is normal at 1.0. Sodium low as below. Ammonia level normal. CT abdomen pelvis showed malignant ascites and worsening metastatic liver disease. Patient is active with home palliative care, and he and would like to pursue home hospice care if possible. Appreciate hospice recommendations. Patient is also interested in having paracentesis done for symptom management; radiology consulted for therapeutic paracentesis. BP elevated in the ED; will also start Lasix 20 mg daily and spironolactone 50 mg daily at this time. 2. Hyponatremia ? Sodium 124, chloride 92 on admit. Suspect secondary to hypervolemic hyponatremia in setting of liver dysfunction as above. Treating with Lasix and spironolactone as above. 3. Hypertension ? Started on Lasix and spironolactone as above but BP is elevated to the 180s systolic. Will continue home amlodipine as well. Hold home Lopressor and clonidine as needed. 4. Iron deficiency anemia ? Hemoglobin 10.3 on admit, at baseline. Continue home iron supplement. DVT prophylaxis: SCDs CODE STATUS: DNR CCA, DNI Expected disposition: TBD Total clinical time spent by myself addressing the patient's medical issues, reviewing all the data, and collaborating with patient's care team: 75 minutes. Charges/Coding Visit Charges Inpatient E&M: 16561 Init Hosp L3
--- NOTE | 2025-02-11 02:27 | US_ITS ---
PROCEDURE: PARACENTESIS WITH US 02/11/2025 REASON FOR EXAM: MALIGNANT ASCITES TECHNIQUE: PARACENTESIS WITH US COMPARISON: none FINDINGS: none US/Paracentesis with US IMPRESSION: Dark yellow fluid noted within the right lower quadrant, large in volume with 3 .7 L fluid removed. Reading Location: [facility]
--- NOTE | 2025-02-11 02:27 | US_ITS ---
PROCEDURE: PARACENTESIS WITH US 02/11/2025 REASON FOR EXAM: MALIGNANT ASCITES TECHNIQUE: PARACENTESIS WITH US COMPARISON: none FINDINGS: none US/Paracentesis with US IMPRESSION: Dark yellow fluid noted within the right lower quadrant, large in volume with 3 .7 L fluid removed. Reading Location: [facility]
--- NOTE | 2025-02-11 02:43 | EX.ED.DYSGE1 ---
HPI History of Present Illness Chief Complaint: General Illness Informant: patient and spouse/S.O. Narrative Narrative: Patient is a 79-year-old male with past medical aortic stenosis as well as colon cancer. He states that over the last few days he has had increased weight gain and abdominal distention. He states that because of his history of aortic stenosis he was concerned that the weight gain and distention was due to heart failure and therefore he presents for evaluation [facility] Medical History 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 Rectal bleeding GI bleed Diverticulosis Mediastinal lymphadenopathy 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 Encounter for education Pre-op testing Wears dentures Arthritis Anemia Gastric reflux Former smoker History of edema History of echocardiogram History of stress test Cardiology follow-up encounter Aortic stenosis Preop cardiovascular exam Colon cancer Overweight (BMI 25.0-29.9) Colonic mass Coronary artery disease 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 Chronic hypertension Acute alteration in mental status Neuropathy Vasectomy planned Hyponatremia TIA (transient ischemic attack) CVA (cerebral vascular accident) Hypertension History of stroke Tobacco use Benign essential hypertension Home Medications ?Medication ?Instructions ?Recorded ?Last Taken ?Type amlodipine 5 mg tablet 5 mg PO DAILY HEART 05/16/24 11/05/24 History clonidine HCl 0.1 mg tablet 0.1 mg PO DAILY PRN hbp 06/08/24 10/06/24 History ferrous sulfate 325 mg (65 mg 325 mg PO DAILY 30 days #60 tabs 06/10/24 11/05/24 Rx iron) tablet (Iron (ferrous sulfate)) metoprolol tartrate 50 mg tablet 25 mg PO QDAY Blood pressure/heart 10/17/24 11/05/24 History rat oxycodone 5 mg tablet 5 mg PO Q4H PRN pain 7 days #30 01/15/25 Unknown Rx tabs Allergy/AdvReac Type Severity Reaction Status Date / Time No Known Allergies Allergy Verified 02/10/25 21:35 Family History Father Arthritis Alcohol abuse Mother Alcohol abuse Liver disease Surgical History History of hemicolectomy (04/25/24) H/O vasectomy S/P right hemicolectomy History of tonsillectomy History of appendectomy 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) Social History Smoking Status: Former smoker Tobacco: How many years used: 15 alcohol intake: never substance use type: does not use ROS ROS ED Constitutional Constitutional ED: Denies chills or fever(s) Eyes Eyes: Denies change in vision ENT ENT ED: Denies sore throat Cardiovascular Cardiovascular: Reports other Details: Positive leg swelling ; Denies chest pain Respiratory/Chest Respiratory/Chest: Denies cough or dyspnea Gastrointestinal Gastrointestinal: Reports abdominal pain, nausea and vomiting; Denies diarrhea Genitourinary Genitourinary ED: Denies dysuria Musculoskeletal Musculoskeletal: Denies back pain Integumentary Denies rash Neurologic Neurologic: Denies headache(s) Hematologic/Lymphatic Hematologic/Lymphatic: Denies easy bleeding or easy bruising EXAM Physical Exam Const Vital Signs: 02/10/25 21:34 02/11/25 00:52 02/11/25 01:06 Temperature 98.7 F Temperature Source Oral Pulse Rate 102 H 77 Respiratory Rate 16 16 Respiratory Pattern Normal Blood Pressure 178/93 H 164/79 H Blood Pressure Mean 121 107 Pulse Ox 99 94 Oxygen Delivery Method Room Air Room Air Positive well nourished and well developed General Appearance ED: well developed HEENT HEENT Narrative: Normocephalic atraumatic Eyes PERRL and EOMs intact bilaterally General Eye ED: Yes scleral icterus Neck supple and no JVD Neck Narrative: No nuchal rigidity or meningeal signs Resp normal respiratory effort and clear to auscultation bilaterally Resp Narrative: No nasal flaring retractions tachypnea or accessory muscle use Breath sounds overall clear to auscultation without signs of respiratory distress Cardio regular rate and regular rhythm Rate: other Other Details: Regular rate and rhythm with grade 5 out of 6 holosystolic murmur GI GI Narrative: Abdomen is distended with normal active bowel sounds. There is a ventral hernia noted that is reducible in nature. There is fluid wave present consistent with ascites. Negative Escobar sign Auscultation: normoactive bowel sounds Palpation: soft Back/Spine no CVA tenderness Extremity Extremity Narrative: +2-3 pitting edema to the bilateral lower extremities that is equal and symmetric Negative Homans' sign bilaterally Neuro CN's II-XII intact bilaterally and no sensory deficits noted Neuro Narrative: Patient is awake and alert but slightly confused Cranial nerves II through XII are grossly intact however without focal neurologic deficit Sensorium / Orientation: alert Psych Psych Narrative: Patient has a flat affect Skin no rashes or lesions noted General Skin Exam: jaundice MDM MDM MDM Narrative Medical decision making narrative: Patient arrived to the ER hypertensive but otherwise with stable vitals. He presented with weight gain and distention over the last few days. On exam he is jaundiced with scleral icterus and there is high concern for cirrhosis or liver disease. Patient also could have potential ileus or small bowel obstruction causing his distention and fluid wave. He does have a ventral hernia but it is reducible nature going against incarceration. Secondary to his basic labs were obtained with a CT scan of the abdomen and pelvis. The patient has significant elevation to his total bilirubin as well as liver enzymes which are consistent with his physical exam. His CT shows diffuse ascites as well as metastatic liver disease. The patient denies any history of liver disease but chart review reveals that this is a known diagnosis. At this time because of the worsening distention and ascites as well as the elevation to his liver enzymes I do feel he would benefit from a therapeutic paracentesis. Also patient may benefit from evaluation by palliative care or hospice. Therefore the case was discussed with the hospitalist who agrees to accept the patient for continued treatment and monitoring. History & Record Review Discussion w/independent historian: Patient and Significant other Lab Data Attestation: I reviewed the patient's lab results. Labs: Laboratory Results - last 24 hr 02/10/25 22:59 WBC 7.3 RBC 3.58 L Hgb 10.3 L Hct 30.3 L MCV 84.6 MCH 28.8 MCHC 34.0 RDW Std Deviation 47.2 H RDW Coeff of Deepika 15.2 H Plt Count 266 MPV 10.2 Immature Gran % (Auto) 0.300 Neut % (Auto) 78.1 H Lymph % (Auto) 7.7 L Orange % (Auto) 12.4 H Eos % (Auto) 1.1 Baso % (Auto) 0.4 Absolute Neuts (auto) 5.7 Absolute Lymphs (auto) 0.56 L Nucleated RBC % 0 PT 13.6 INR 1.0 APTT 28.2 Sodium 124 L Potassium 3.9 Chloride 92 L Carbon Dioxide 19.0 L Anion Gap 13 BUN 10 Creatinine 0.87 Estim Creat Clear Calc 63.31 Est GFR (MDRD) Non-Af 87 BUN/Creatinine Ratio 11.2 Glucose 120 H Calcium 8.9 Total Bilirubin 7.43 H Direct Bilirubin 5.21 H AST 132 H ALT 160 H Alkaline Phosphatase 516 H Ammonia 25.6 Total Protein 6.5 Albumin 3.8 Globulin 2.7 Lipase 141 H Urine Color Yellow Urine Clarity Cloudy Urine pH 6.0 Ur Specific [place] 1.015 Urine Protein 30 H Urine Glucose (UA) Normal Urine Ketones Negative Urine Occult Blood 10 H Urine Nitrite Negative Urine Bilirubin 3 H Urine Urobilinogen 1 H Ur Leukocyte Esterase 25 H Urine RBC 0-5 SEEN Urine WBC 0-5 SEEN Ur Squamous Epith Cells 0-5 SEEN Amorphous Sediment 1+ Urine Bacteria 0 SEEN Urine Mucus 0 SEEN Radiography Diagnostic Testing: Clinical Impression(s) from Imaging Studies Chest X-Ray 02/10/25 22:46 IMPRESSION: No acute chest findings. Reading Location: [place] [id number] Chest x-ray as interpreted by the emergency medicine physician reveals infiltrate pneumothorax or pleural effusion Management Discussion w/another healthcare provider: Hospitalist Discharge Plan Dx/Rx/DC Orders Clinical Impression: Acute liver failure, Ascites, Benign essential hypertension, Aortic stenosis, Metastatic colon cancer to liver Disposition Disposition: Acute Care [facility] Discharge Date/Time: 02/11/25 04:22
--- OUTSIDE RECORDS SUMMARY | 2025-02-11 02:59 | XMS RPT_ITS | CCD ---
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 Neville Islas Primary Care Provider [phone] Dr. Jerry Hightower Emergency Provider Dr. Darrel Carpenter Admit Provider Unavailabl e Dr. Darrel Carpenter Attending Provider Unavail able Dr. Darrel Carpenter Other Provider Unavailabl e Dr. Adrian Flores Attending Provider [phone] Darrel Carpenter Referring Provider Unavail able Dr. Stevie Umanzor Attending Provider Dr. Lucy Polanco Other Provider Dr. Karli Cruz Attending Provider Dr. Lucy Polanco Attending Provider Darrel Pringle MD Unavailable Unavailable Shahram TRACK WALKER-C, Mariela Primary Care Provider Shahram TRACK WALKER-C, Mariela Referring Provider Dr. Papi Hernandez MD Attending Provider Rafa TRACK WALKER-C, Selam Attending Provider Shahram TRACK WALKER-C, Mariela Attending Provider Darin TRACK WALKER-C, Malinda Morillo Attending Provider Darin TRACK WALKER-C, Malinda Morillo Referring Provider Dr. Papi Hernandez MD Referring Provider Dr. Jerry Hightower DO Emergency Provider [phone] Dr. Jerry Hightower DO Attending Provider Shahram TRACK WALKER-C, [place] Primary Care Provider Shahram TRACK WALKER-C, Mariela Referring Provider Dr. Papi Hernandez MD Attending Provider Dr. Harrison Linares DO Emergency Provider de Tommy , Dr. Rojo Admit Provider Unavail able de Tommy DO, Dr. Rojo Attending Provider Unav ailable de Tommy DO, Dr. Rojo Other Provider Unavail able Juany FARLEY, Dr. Hubbard Attending Provider Juany FARLEY, Dr. Hubbard Other Provider Friend , Dr. Chapman Attending Provider Shahram TRACK WALKER-C, [place] Primary Care Provider Shahram TRACK WALKER-C, Mariela Referring Provider Juany FARLEY, Dr. Hubbard Referring Provider Mark DAVIS, Dr. Campbell Attending Provider Mark DAVIS, Dr. Campbell Referring Provider Dr. Lazaro Sharp MD Emergency Provider Raciel DAVIS, Dr. Kelvin Vallejo Admit Provider Raciel ADVIS, Dr. Kelvin Vallejo Attending Provider Raciel DAVIS, Dr. Kelvin Vallejo Referring Provider Raciel DAVIS, Dr. Kelvin Vallejo Other Provider Dr. Neville Jang DO Attending Provider Dr. Kelvin Schrader MD Attending Provider Dr. Neville Jang DO Other Provider Shahram TRACK WALKER-C, [place] Primary Care Provider Shahram TRACK WALKER-C, Mariela Referring Provider Dr. Papi Hernandez MD Attending Provider Shahram TRACK WALKER-C, Mariela Attending Provider Roof TRACK WALKER-C, Malinda Morillo Attending Provider Roof TRACK WALKER-C, Malinda Morillo Referring Provider Dr. Papi Hernandez [...] Dr. Brenda Araujo MD Referring Provider Shahram TRACK WALKER-C, Mariela Primary Care Provider Shahram TRACK WALKER-C, Mariela Referring Provider Dr. Papi Hernandez MD Attending Provider Gayle DAVIS, Dr. Gutierrez Attending Provider Gayle DAVIS, Dr. Gutierrez Referring Provider Shahram TRACK WALKER-C, [place] Primary Care Provider Shahram TRACK WALKER-C, [place] Referring Provider Mary DAVIS, Dr. Turpin Attending Provider [phone] Shahram TRACK WALKER-C, [place] Primary Care Provider Neville Islas DO Primary Care Provider Darrel Pringle Attending Unavailable Julissa Yap Referring Unavailable Darrel Pringle Attending Unavailable Darrel Pringle Referring Unavailable Darrel Pringle Attending Unavailable Julissa Yap Referring Unavailable Darrel Pringle Attending Unavailable Julissa Yap Referring Unavailable Darrel Pringle Attending Unavailable Darrel Pringle Referring Unavailable Darrel Pringle Attending Unavailable Darrel Pringle Referring Unavailable Mark DAVIS, Dr. Campbell Other Provider [phone] Jerry Hightower Attending Unavailable Shahram, Mariela Primary Care Unavailable Shahram, Mariela Referring Unavailable Shahram, Mariela Attending Unavailable Shahram, [place] Primary Care Unavailable Shahram, [place] Primary Care Unavailable Darrle Carpenter Consulting Unavailable Darrel Carpenter Admitting Unavailable Stevie Harrington Attending Unavailable Darrel Carpenter Admitting Unavailable Darrel Carpenter Consulting Unavailable Shahram, Mariela Primary Care Unavailable Stevie Harrington Attending Unavailable Santana Francois Consulting Unavailable Shahram, Mariela Referring Unavailable Shahram, [place] Primary Care Unavailable Papi Hernandez Attending Unavailable Shahram, Mariela Referring Unavailable Shahram, [place] Primary Care Unavailable Papi Hernandez Attending Unavailable Du Thomas Attending Unavailable Shahram, [place] Primary Care Unavailable Du Thomas Referring Unavailable Du Thomas Admitting Unavailable Keo Burgos Consulting Unavailable Du Thomas Consulting Unavailable Shahram, Mariela Referring Unavailable Shahram, [place] Primary Care Unavailable Selam Craig NP Attending Unavailable Roshan, Neville Primary Care Unavailable Neville Islas Attending Unavailable Roshan, Neville Referring Unavailable Shahram, Mariela Primary Care Unavailable Roof TRACK WALKER, Malinda H Referring Unavailable Roof TRACK WALKER, Malinda H Attending Unavailable Roof TRACK WALKER, Malinda H Attending Unavailable Roof TRACK WALKER, Malinda H Referring Unavailable Shahram, Mariela Primary Care Unavailable Shahram, Mariela Primary Care Unavailable Papi Hernandez Attending Unavailable Praeve, Papi Referring Unavailable Isckarus, Mansour Referring Unavailable Isckarus, Mansour Attending Unavailable Shahram, Mariela Primary Care Unavailable Isckarus, Mansour Referring Unavailable Isckarus, Mansour Attending Unavailable Shahram, Mariela Primary Care Unavailable Mark, Bolton Attending Unavailable Mark, Adrian Referring Unavailable Shahram, Mariela Primary Care Unavailable Shahram, Mariela Attending Unavailable Shahram, Mariela Referring Unavailable Shahram, Mariela Primary Care Unavailable Mark, Bolton Attending Unavailable Mark, Bolton Referring Unavailable Shahram, Mariela Primary Care Unavailable Mark, Bolton Attending Unavailable Shahram, Mariela Primary Care Unavailable [...] Attending Unavailable Santana Francois Consulting Unavailable Juany, Stevie Consulting Unavailable Du Thomas Attending Unavailable [...] Consulting Unavailable Mark Adrian Attending Unavailable Mark, Bolton Referring Unavailable Shahram, Mariela Primary Care Unavailable [...] Unavailable Shahram, Mariela Primary Care Unavailable Darin TRACK WALKER, Malinda Morillo Attending Unavailable Shahram, Mariela Referring [...] Unavailable Shahram, Mariela Primary Care Unavailable Roof TRACK WALKER, Malinda Morillo Attending Unavailable Brenda Araujo Referring Unavailable Shahram, Mariela Primary Care Unavailable Shahram, Mariela Primary Care Unavailable Jerry Hightower Attending Unavailable Du Thomas Attending Unavailable Shahram, Mariela Referring Unavailable Shahram, Mariela Primary Care Unavailable Sunny Mancia Consulting Unavailable Allergies Allergy Classification Reported Allergen(s) Allergy Type Date of Onset Reaction(s) Facility (3 sources) fentaNYL Drug Allergy 5 Low blood pressure [facility] (1 source) cloNIDine Drug Allergy 4 [facility] Repository (1 source) fentaNYL Drug Allergy 5 [facility] (1 source) Wheat preparation Drug Allergy 4 [facility] Repository Medications Current Medications Medication Drug [...] 04-23-2024 End: 04-25-2024 take 1 capsule by [facility] twice daily at mealtime potassium chloride ER [...] Coronary atherosclerosis; Translations: [Atherosclerotic heart disease of [place] coronary artery without angina pectoris] Onset: 019 [...] artery of lower limb; Translations: [Atherosclerosis of [place] arteries of extremities with intermittent claudication, bilateral [...] 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 Routed to Clau Wesley to arrange and call patient back [facility] 01-31-2025 36 Left message for pat ient to call office back to schedule CT scan on 02/19 [facility] 01-29-2025 36 Patient scheduled in valve clinic on 02/19 for aortic stenosis, cath and echo completed by Dr. Flores's office. BMP completed 01/08/25 in media. Pended order for CTA TAVR, MITER SAWYER to sign. Will call patient to schedule same day as OV. Normal [facility] 01-28-2025 36 Chart made and TRACK WALKER ondina ckmichelle mailed [facility] 01-22-2025 36 VC appt made for 01/30 09/25 I need to make chart and mail TRACK WALKER packet [facility] Oncology Visit Reporton 12-30 Oncology Visit Report Normal [facility] Absolute lymphocyte countOrd ered By: Malinda Webster on 01-08-2025 Lymphocytes Auto (Unsp spec) [#/Vol] 0.70 10*3/uL Low 0.83-4.51 [facility] Anion gap in Serum or Plasma Ordered By: Malinda Webster on 01-08-2025 Anion gap [Moles/Vol] 12 mmol/L - [facility] Automated lymphocyte count a s percentage of total leukocytesOrdered By: Malinda Darin on 01-08-2025 Lymphocytes/100 WBC Auto (Unsp spec) 12.0 % Low 19-41 [facility] BUN/creatinine ratioOrdered By: Malinda Webster on 01-08-2025 Urea nitrogen/Creatinine [Mass ratio] 12.0 mg/mg 05-20 [facility] Basic Metabolic Profile (BMP )on 01-08-2025 BUN/CRE 12.0 RATIO Normal 05-20 [facility] Comment on above: Performed By: #### L 100.0100, L500.2500 ####[facility] [address] [place], [address] Calcium [Mass/Vol] 9.3 mg/dL Normal 7.6-11.0 [facility] Comment on above: Performed By: #### L 100.0100, L500.2500 ####[facility] [address] [place], [address] Chloride [Moles/Vol] 96 mmol/L Low 98-108 [facility] Comment on above: Performed By: #### L 100.0100, L500.2500 ####[facility] [address] [place], [address] CO2 [Moles/Vol] 23.4 mmol/L Normal 21.0-32.0 [facility] Comment on above: Performed By: #### L 100.0100, L500.2500 ####[facility] [address] [place], [address] Creatinine [Mass/Vol] 0.97 mg/dL Normal 0.70-1.20 [facility] Comment on above: Performed By: #### L 100.0100, L500.2500 ####[facility] [address] [place], [address] GAP 12 Normal - [facility] Comment on above: Performed By: #### L 100.0100, L500.2500 ####[facility] [address] [place], [address] GFR/1.73 sq M.predicted among non-blacks MDRD (S/P/Bld) [Vol rate/Area] 79 mL/min/{1.73_m2} Normal >60 [facility] Comment on above: Result Comment: mL/m in/1.73m2 CKD-EPI Creatinine Equation (2020) Performed By: #### L 100.0100, L500.2500 ####[facility] [address] [place], [address] Glucose [Mass/Vol] 102 mg/dL High 70-99 [facility] Comment on above: Performed By: #### L 100.0100, L500.2500 ####[facility] [address] [place], [address] Potassium [Moles/Vol] 4.4 mmol/L Normal 3.3-5.1 [facility] Comment on above: Performed By: #### L 100.0100, L500.2500 ####[facility] [address] [place], [address] Sodium [Moles/Vol] 131 mmol/L Low 133-145 [facility] Comment on above: Performed By: #### L 100.0100, L500.2500 ####[facility] [address] [place], [address] Urea nitrogen [Mass/Vol] 12 mg/dL Normal 4-19 [facility] Comment on above: Performed By: #### L 100.0100, L500.2500 ####[facility] [address] [place], [address] Basophil percentageOrdered B y: Malinda Webster on 01-08-2025 Basophils/100 WBC (Bld) 0.2 % 0-1 [facility] CBC W/Diff, Automatedon 06-1 0-2025 Absolute Lymph 0.70 X10 3/uL Low 0.83-4.51 [facility] Comment on above: Performed By: #### L 100.0100, L500.2500 ####[facility] [address] [place], [address] Absolute Neut 4.3 X10 3/uL Normal 2.0-7.7 [facility] Comment on above: Performed By: #### L 100.0100, L500.2500 ####[facility] [address] [place], [address] Basophils/100 WBC (Bld) 0.2 % Normal 0-1 [facility] Comment on above: Performed By: #### L 100.0100, L500.2500 ####[facility] [address] [place], [address] Eosinophils/100 WBC (Bld) 1.2 % Normal 0-5 [facility] Comment on above: Performed By: #### L 100.0100, L500.2500 ####[facility] [address] [place], [address] Erythrocyte distribution width (RBC) [Ratio] 12.7 % Normal 11.6-14.6 [facility] Comment on above: Performed By: #### L 100.0100, L500.2500 ####[facility] [address] [place], [address] Hematocrit (Bld) [Volume fraction] 32.6 % Low 40-54 [facility] Comment on above: Performed By: #### L 100.0100, L500.2500 ####[facility] [address] [place], [address] Hemoglobin (Bld) [Mass/Vol] 10.9 g/dL Low 13.0-16.5 [facility] Comment on above: Performed By: #### L 100.0100, L500.2500 ####[facility] [address] [place], [address] IG% 0.200 Normal 0.0-0.9 [facility] Comment on above: Result Comment: IG% - Immature Granulocytes (promyelocytes, myelocytes andmetamyelocytes) > 1% indicates that a LEFT SHIFT is Present. Performed By: #### L 100.0100, L500.2500 ####[facility] [address] [place], [address] Lymphocytes/100 WBC (Bld) 12.0 % Low 19-41 [facility] Comment on above: Performed By: #### L 100.0100, L500.2500 ####[facility] [address] [place], [address] MCH (RBC) [Entitic mass] 29.1 pg Normal 27.0-32.0 [facility] Comment on above: Performed By: #### L 100.0100, L500.2500 ####[facility] [address] [place], [address] MCHC (RBC) [Mass/Vol] 33.4 g/dL Normal 32-36 [facility] Comment on above: Performed By: #### L 100.0100, L500.2500 ####[facility] [address] [place], [address] MCV (RBC) [Entitic vol] 86.9 fL Normal 80-94 [facility] Comment on above: Performed By: #### L 100.0100, L500.2500 ####[facility] [address] [place], [address] Monocytes/100 WBC (Bld) 11.9 % High 0-10 [facility] Comment on above: Performed By: #### L 100.0100, L500.2500 ####[facility] [address] [place], [address] Neutrophils/100 WBC (Bld) 74.5 % High 47-70 [facility] Comment on above: Performed By: #### L 100.0100, L500.2500 ####[facility] [address] [place], [address] Nucleated RBC (Bld) [#/Vol] 0 10*3/uL Normal 0-5 [facility] Comment on above: Performed By: #### L 100.0100, L500.2500 ####[facility] [address] [place], [address] Platelet mean volume (Bld) [Entitic vol] 10.1 fL Normal 6.2-12.0 [facility] Comment on above: Performed By: #### L 100.0100, L500.2500 ####[facility] [address] [place], [address] Platelets (Bld) [#/Vol] 243 10*3/uL Normal 150-450 [facility] Comment on above: Performed By: #### L 100.0100, L500.2500 ####[facility] [address] [place], [address] RBC (Bld) [#/Vol] 3.75 10*6/uL Low 4.6-6.2 [facility] Comment on above: Performed By: #### L 100.0100, L500.2500 ####[facility] [address] [place], [address] RDW SD 40.5 fl Normal 35.1-43.9 [facility] Comment on above: Performed By: #### L 100.0100, L500.2500 ####[facility] [address] [place], [address] WBC (Bld) [#/Vol] 5.8 10*3/uL Normal 4.4-11.0 [facility] Comment on above: Performed By: #### L 100.0100, L500.2500 ####[facility] [address] [place], [place], [id number] Carbon dioxide, total [Moles /volume] in Central venous bloodOrdered By: Malinda Webster on 01-08-2025 CO2 [Moles/Vol] 23.4 mmol/L 21.0-32.0 [facility] Chloride assayOrdered By: Santa Webster on 01-08-2025 Chloride [Moles/Vol] 96 mmol/L Low 98-108 [facility] Eosinophil percentageOrdered By: Malinda Webster on 01-08-2025 Eosinophils/100 WBC (Bld) 1.2 % 0-5 [facility] Erythrocyte distribution wid th ratioOrdered By: Malinda Webster on 01-08-2025 Erythrocyte distribution width (RBC) [Ratio] 12.7 % 11.6-14.6 [facility] Erythrocyte distribution wid th standard deviationOrdered By: Malinda Webster on 01-08-2025 Erythrocyte distribution width (RBC) [Ratio] 40.5 fl 35.1-43.9 [facility] Glomerular filtration rate ( GFR) estimation/1.73 sq m using serum, plasma, or whole bOrdered By: Malinda Webster on 01-08-2025 GFR/1.73 sq M.predicted among non-blacks MDRD (S/P/Bld) [Vol rate/Area] 79 mL/min/{1.73_m2} >60 [facility] Hematocrit Auto (Bld) [Volum e fraction]Ordered By: Malinda Webster on 01-08-2025 Hematocrit (Bld) [Volume fraction] 32.6 % Low 40-54 [facility] Hemoglobin measurementOrdere d By: Malinda Webster on 01-08-2025 Hemoglobin (Bld) [Mass/Vol] 10.9 g/dL Low 13.0-16.5 [facility] Immature granulocytes/100 WB C Auto (Bld)Ordered By: Malinda Webster on 01-08-2025 Immature granulocytes/100 WBC (Bld) 0.200 % 0.0-0.9 [facility] MCV (mean corpuscular volume ) determinationOrdered By: Malinda Webster on 01-08-2025 MCV (RBC) [Entitic vol] 86.9 fL 80-94 [facility] Mean corpuscular hemoglobin (MCH) determinationOrdered By: Malinda Webster on 01-08-2025 MCH (RBC) [Entitic mass] 29.1 pg 27.0-32.0 [facility] Monocyte percentageOrdered B y: Malinda Webster on 01-08-2025 Monocytes/100 WBC (Bld) 11.9 % High 0-10 [facility] Neutrophil percentageOrdered By: Malinda Webster on 01-08-2025 Neutrophils/100 WBC (Bld) 74.5 % High 47-70 [facility] Platelet countOrdered By: Santa Webster on 01-08-2025 Platelets (Bld) [#/Vol] 243 10*3/uL 150-450 [facility] Potassium measurement (mass/ volume)Ordered By: Malinda Webster on 01-08-2025 Potassium (Unsp spec) [Mass/Vol] 4.4 mmol/L 3.3-5.1 [facility] RBC Auto (Bld) [#/Vol]Ordere d By: Malinda Webster on 01-08-2025 RBC (Bld) [#/Vol] 3.75 10*6/uL Low 4.6-6.2 [facility] Serum creatinine measurement (mass/volume)Ordered By: Malinda Webster on 01-08-2025 Creatinine [Mass/Vol] 0.97 mg/dL 0.70-1.20 [facility] Serum glucose measurement (m ass/volume)Ordered By: Malinda Webster on 01-08-2025 Glucose [Mass/Vol] 102 mg/dL High 70-99 [facility] Serum or plasma calcium shagufta urement (mass/volume)Ordered By: Malinda Webster on 01-08-2025 Calcium [Mass/Vol] 9.3 mg/dL 7.6-11.0 [facility] Serum or plasma urea nitroge n measurement (mass/volume)Ordered By: Malinda Webster on 01-08-2025 Urea nitrogen [Mass/Vol] 12 mg/dL 4-19 [facility] Sodium levelOrdered By: Malinda Webster on 01-08-2025 Sodium [Moles/Vol] 131 mmol/L Low 133-145 [facility] White blood cell (WBC) count Ordered By: Malinda Webster on 01-08-2025 WBC (Bld) [#/Vol] 5.8 10*3/uL 4.4-11.0 [facility] Carcinoembryonic Antigenon 0 12-16-2024 CEA 47.8 ng/mL High 0.0-4.7 [facility] Comment on above: Order Comment: MALINDA WEBSTER ORDERED CBCD Result Comment: Nons mokers <3.9 Smokers <5.6[employer] Electrochemiluminescence Immunoassay(ECLIA)Values obtained with different assay methods or kitscannot be used interchangeably. Results cannot beinterpreted as absolute evidence of the presence orabsence of malignant disease.Performed at: [employer] [place] [id number] Director: Jian Paredes PhD, Phone: [phone] Performed By: #### L 100.0100, L503.3250, L503.6030, L3100.2300, L500.4050 ####[facility] [address] [place], [address] Absolute lymphocyte countOrd ered By: [facility] on 12-14-2024 Lymphocytes Auto (Unsp spec) [#/Vol] 0.68 10*3/uL Low 0.83-4.51 [facility] Anion gap in Serum or Plasma Ordered By: Brenda Araujo on 12-14-2024 Anion gap [Moles/Vol] 12 mmol/L 5-15 [facility] Automated lymphocyte count a s percentage of total leukocytesOrdered By: Brenda Araujo on 12-14-2024 Lymphocytes/100 WBC Auto (Unsp spec) 9.9 % Low 19-41 [facility] BUN/creatinine ratioOrdered By: [facility] on 12-14-2024 Urea nitrogen/Creatinine [Mass ratio] 11.3 mg/mg 10-20 [facility] Basophil percentageOrdered B y: Brenda Araujo on 12-14-2024 Basophils/100 WBC (Bld) 0.4 % 0-1 [facility] Bilirubin, totalOrdered By: Brenda Araujo on 12-14-2024 Bilirubin [Mass/Vol] 0.51 mg/dL 0.00-1.30 [facility] CBC W/Diff, Automatedon 05-1 -2024 Absolute Lymph 0.68 X10 3/uL Low 0.83-4.51 [facility] Comment on above: Order Comment: MALINDA WEBSTER ORDERED CBCD Performed By: #### L 100.0100, L503.6550, L503.6030, L3100.2300, L500.4050 ####[facility] [address] [place], [address] Absolute Neut 5.5 X10 3/uL Normal 2.0-7.7 [facility] Comment on above: Order Comment: MALINDA WEBSTER ORDERED CBCD Performed By: #### L 100.0100, L503.6550, L503.6030, L3100.2300, L500.4050 ####[facility] [address] [place], [address] Basophils/100 WBC (Bld) 0.4 % Normal 0-1 [facility] Comment on above: Order Comment: MALINDA WEBSTER ORDERED CBCD Performed By: #### L 100.0100, L503.6550, L503.6030, L3100.2300, L500.4050 ####[facility] [address] [place], [address] Eosinophils/100 WBC (Bld) 0.4 % Normal 0-5 [facility] Comment on above: Order Comment: MALINDA WEBSTER ORDERED CBCD Performed By: #### L 100.0100, L503.6550, L503.6030, L3100.2300, L500.4050 ####[facility] [address] [place], [address] Erythrocyte distribution width (RBC) [Ratio] 12.8 % Normal 11.6-14.6 [facility] Comment on above: Order Comment: MALINDA WEBSTER ORDERED CBCD Performed By: #### L 100.0100, L503.6550, L503.6030, L3100.2300, L500.4050 ####[facility] [address] [place], [address] Hematocrit (Bld) [Volume fraction] 31.4 % Low 40-54 [facility] Comment on above: Order Comment: MALINDA WEBSTER ORDERED CBCD Performed By: #### L 100.0100, L503.6550, L503.6030, L3100.2300, L500.4050 ####[facility] [address] [place], [address] Hemoglobin (Bld) [Mass/Vol] 10.8 g/dL Low 13.0-16.5 [facility] Comment on above: Order Comment: MALINDA WEBSTER ORDERED CBCD Performed By: #### L 100.0100, L503.6550, L503.6030, L3100.2300, L500.4050 ####[facility] [address] [place], [address] IG% 0.400 Normal 0.0-0.9 [facility] Comment on above: Order Comment: MALINDA WEBSTER ORDERED CBCD Result Comment: IG% - Immature Granulocytes (promyelocytes, myelocytes andmetamyelocytes) > 1% indicates that a LEFT SHIFT is Present. Performed By: #### L 100.0100, L503.6550, L503.6030, L3100.2300, L500.4050 ####[facility] [address] [place], [address] Lymphocytes/100 WBC (Bld) 9.9 % Low 19-41 [facility] Comment on above: Order Comment: MALINDA WEBSTER ORDERED CBCD Performed By: #### L 100.0100, L503.6550, L503.6030, L3100.2300, L500.4050 ####[facility] [address] [place], [address] MCH (RBC) [Entitic mass] 30.6 pg Normal 27.0-32.0 [facility] Comment on above: Order Comment: MALINDA WEBSTER ORDERED CBCD Performed By: #### L 100.0100, L503.6550, L503.6030, L3100.2300, L500.4050 ####[facility] [address] [place], [address] MCHC (RBC) [Mass/Vol] 34.4 g/dL Normal 32-36 [facility] Comment on above: Order Comment: MALINDA WEBSTER ORDERED CBCD Performed By: #### L 100.0100, L503.6550, L503.6030, L3100.2300, L500.4050 ####[facility] [address] [place], [address] MCV (RBC) [Entitic vol] 89.0 fL Normal 80-94 [facility] Comment on above: Order Comment: MALINDA WEBSTER ORDERED CBCD Performed By: #### L 100.0100, L503.6550, L503.6030, L3100.2300, L500.4050 ####[facility] [address] [place], [address] Monocytes/100 WBC (Bld) 8.6 % Normal 0-10 [facility] Comment on above: Order Comment: MALINDA WEBSTER ORDERED CBCD Performed By: #### L 100.0100, L503.6550, L503.6030, L3100.2300, L500.4050 ####[facility] [address] [place], [address] Neutrophils/100 WBC (Bld) 80.3 % High 47-70 [facility] Comment on above: Order Comment: MALINDA WEBSTER ORDERED CBCD Performed By: #### L 100.0100, L503.6550, L503.6030, L3100.2300, L500.4050 ####[facility] [address] [place], [address] Nucleated RBC (Bld) [#/Vol] 0 10*3/uL Normal 0-5 [facility] Comment on above: Order Comment: MALINDA WEBSTER ORDERED CBCD Performed By: #### L 100.0100, L503.6550, L503.6030, L3100.2300, L500.4050 ####[facility] [address] [place], [address] Platelet mean volume (Bld) [Entitic vol] 9.6 fL Normal 6.2-12.0 [facility] Comment on above: Order Comment: MALINDA WEBSTER ORDERED CBCD Performed By: #### L 100.0100, L503.6550, L503.6030, L3100.2300, L500.4050 ####[facility] [address] [place], [address] Platelets (Bld) [#/Vol] 312 10*3/uL Normal 150-450 [facility] Comment on above: Order Comment: MALINDA WEBSTER ORDERED CBCD Performed By: #### L 100.0100, L503.6550, L503.6030, L3100.2300, L500.4050 ####[facility] [address] [place], [address] RBC (Bld) [#/Vol] 3.53 10*6/uL Low 4.6-6.2 [facility] Comment on above: Order Comment: MALINDA WEBSTER ORDERED CBCD Performed By: #### L 100.0100, L503.6550, L503.6030, L3100.2300, L500.4050 ####[facility] [address] [place], [address] RDW SD 41.6 fl Normal 35.1-43.9 [facility] Comment on above: Order Comment: MALINDA WEBSTER ORDERED CBCD Performed By: #### L 100.0100, L503.6550, L503.6030, L3100.2300, L500.4050 ####[facility] [address] [place], [address] WBC (Bld) [#/Vol] 6.9 10*3/uL Normal 4.4-11.0 [facility] Comment on above: Order Comment: MALINDA WEBSTER ORDERED CBCD Performed By: #### L 100.0100, L503.6550, L503.6030, L3100.2300, L500.4050 ####[facility] [address] [place], [address] Absolute Neut Normal 2.0-7.7 [facility] Comment on above: Result Comment: CBCD ORDER ON OTHER REQ Performed By: #### L 100.0100 ####[facility] [address] [place], [address] HCT Normal 40-54 [facility] Comment on above: Result Comment: CBCD ORDER ON OTHER REQ Performed By: #### L 100.0100 ####[facility] [address] [place], [address] HGB Normal 13.0-16.5 [facility] Comment on above: Result Comment: CBCD ORDER ON OTHER REQ Performed By: #### L 100.0100 ####[facility] [address] [place], [address] MCH Normal 27.0-32.0 [facility] Comment on above: Result Comment: CBCD ORDER ON OTHER REQ Performed By: #### L 100.0100 ####[facility] [address] [place], [address] MCHC Normal 32-36 [facility] Comment on above: Result Comment: CBCD ORDER ON OTHER REQ Performed By: #### L 100.0100 ####[facility] [address] [place], [address] MCV Normal 80-94 [facility] Comment on above: Result Comment: CBCD ORDER ON OTHER REQ Performed By: #### L 100.0100 ####[facility] [address] [place], [address] NEUT% Normal 47-70 [facility] Comment on above: Result Comment: CBCD ORDER ON OTHER REQ Performed By: #### L 100.0100 ####[facility] [address] [place], [address] PLT Normal 150-450 [facility] Comment on above: Result Comment: CBCD ORDER ON OTHER REQ Performed By: #### L 100.0100 ####[facility] [address] [place], [address] RBC Normal 4.6-6.2 [facility] Comment on above: Result Comment: CBCD ORDER ON OTHER REQ Performed By: #### L 100.0100 ####[facility] [address] [place], [address] RDW CV Normal 11.6-14.6 [facility] Comment on above: Result Comment: CBCD ORDER ON OTHER REQ Performed By: #### L 100.0100 ####[facility] [address] [place], [address] RDW SD Normal 35.1-43.9 [facility] Comment on above: Result Comment: CBCD ORDER ON OTHER REQ Performed By: #### L 100.0100 ####[facility] [address] [place], [address] WBC Normal 4.4-11.0 [facility] Comment on above: Result Comment: CBCD ORDER ON OTHER REQ Performed By: #### L 100.0100 ####[facility] [address] [place], [address] Carbon dioxide, total [Moles /volume] in Central venous bloodOrdered By: Brenda Araujo on 12-14-2024 CO2 [Moles/Vol] 23.4 mmol/L 21.0-32.0 [facility] Chest PA and Lateralon 12-14 Chest PA and Lateral Normal [facility] Chloride assayOrdered By: Kalen Araujo on 12-14-2024 Chloride [Moles/Vol] 97 mmol/L Low 98-108 [facility] Comprehensive Metabolic Prof ilon 12-14-2024 Albumin [Mass/Vol] 4.2 g/dL Normal 3.4-4.8 [facility] Comment on above: Order Comment: MALINDA WEBSTER ORDERED CBCD Performed By: #### L 100.0100, L503.6550, L503.6030, L3100.2300, L500.4050 ####[facility] [address] [place], [address] Albumin/Globulin [Mass ratio] 1.4 {ratio} Normal 0.9-2.4 [facility] Comment on above: Order Comment: MALINDA WEBSTER ORDERED CBCD Performed By: #### L 100.0100, L503.6550, L503.6030, L3100.2300, L500.4050 ####[facility] [address] [place], [address] ALK PHOS 116 U/L Normal 40-129 [facility] Comment on above: Order Comment: MALINDA WEBSTER ORDERED CBCD Performed By: #### L 100.0100, L503.6550, L503.6030, L3100.2300, L500.4050 ####[facility] [address] [place], [address] ALT [Catalytic activity/Vol] 11 U/L Normal <=46 [facility] Comment on above: Order Comment: MALINDA WEBSTER ORDERED CBCD Performed By: #### L 100.0100, L503.6550, L503.6030, L3100.2300, L500.4050 ####[facility] [address] [place], [address] AST [Catalytic activity/Vol] 24 U/L Normal <=37 [facility] Comment on above: Order Comment: MALINDA WEBSTER ORDERED CBCD Performed By: #### L 100.0100, L503.6550, L503.6030, L3100.2300, L500.4050 ####[facility] [address] [place], [address] Bilirubin [Mass/Vol] 0.51 mg/dL Normal 0.00-1.30 [facility] Comment on above: Order Comment: MALINDA DARIN ORDERED CBCD Performed By: #### L 100.0100, L503.6550, L503.6030, L3100.2300, L500.4050 ####[facility] [address] [place], [address] BUN/CRE 11.3 RATIO Normal 10-20 [facility] Comment on above: Order Comment: MALINDA DARIN ORDERED CBCD Performed By: #### L 100.0100, L503.6550, L503.6030, L3100.2300, L500.4050 ####[facility] [address] [place], [address] Calcium [Mass/Vol] 9.3 mg/dL Normal 7.6-11.0 [facility] Comment on above: Order Comment: MALINDA DARIN ORDERED CBCD Performed By: #### L 100.0100, L503.6550, L503.6030, L3100.2300, L500.4050 ####[facility] [address] [place], [address] Chloride [Moles/Vol] 97 mmol/L Low 98-108 [facility] Comment on above: Order Comment: MALINDA DARIN ORDERED CBCD Performed By: #### L 100.0100, L503.6550, L503.6030, L3100.2300, L500.4050 ####[facility] [address] [place], [address] CO2 [Moles/Vol] 23.4 mmol/L Normal 21.0-32.0 [facility] Comment on above: Order Comment: MALINDA WEBSTER ORDERED CBCD Performed By: #### L 100.0100, L503.6550, L503.6030, L3100.2300, L500.4050 ####[facility] [address] [place], [address] Creatinine [Mass/Vol] 1.00 mg/dL Normal 0.70-1.20 [facility] Comment on above: Order Comment: MALINDA DARIN ORDERED CBCD Performed By: #### L 100.0100, L503.6550, L503.6030, L3100.2300, L500.4050 ####[facility] [address] [place], [address] GAP 12 Normal 5-15 [facility] Comment on above: Order Comment: MALINDA WEBSTER ORDERED CBCD Performed By: #### L 100.0100, L503.6550, L503.6030, L3100.2300, L500.4050 ####[facility] [address] [place], [address] GFR/1.73 sq M.predicted among non-blacks MDRD (S/P/Bld) [Vol rate/Area] 76 mL/min/{1.73_m2} Normal >60 [facility] Comment on above: Order Comment: MALINDA DARIN ORDERED CBCD Result Comment: mL/m in/1.73m2 CKD-EPI Creatinine Equation (2020) Performed By: #### L 100.0100, L503.6550, L503.6030, L3100.2300, L500.4050 ####[facility] [address] [place], [address] Globulin (S) [Mass/Vol] 3.0 g/dL Normal 2.2-4.2 [facility] Comment on above: Order Comment: MALINDA WEBSTER ORDERED CBCD Performed By: #### L 100.0100, L503.6550, L503.6030, L3100.2300, L500.4050 ####[facility] [address] [place], [address] Glucose [Mass/Vol] 106 mg/dL High 70-99 [facility] Comment on above: Order Comment: MALINDA WEBSTER ORDERED CBCD Performed By: #### L 100.0100, L503.6550, L503.6030, L3100.2300, L500.4050 ####[facility] [address] [place], [address] Potassium [Moles/Vol] 3.8 mmol/L Normal 3.3-5.1 [facility] Comment on above: Order Comment: MALINDA WEBSTER ORDERED CBCD Performed By: #### L 100.0100, L503.6550, L503.6030, L3100.2300, L500.4050 ####[facility] [address] [place], [address] Sodium [Moles/Vol] 133 mmol/L Normal 133-145 [facility] Comment on above: Order Comment: MALINDA WEBSTER ORDERED CBCD Performed By: #### L 100.0100, L503.6550, L503.6030, L3100.2300, L500.4050 ####[facility] [address] [place], [address] T PROT 7.3 g/dL Normal 5.9-8.4 [facility] Comment on above: Order Comment: MALINDA WEBSTER ORDERED CBCD Performed By: #### L 100.0100, L503.6550, L503.6030, L3100.2300, L500.4050 ####[facility] [address] [place], [address] Urea nitrogen [Mass/Vol] 11 mg/dL Normal 4-19 [facility] Comment on above: Order Comment: MALINDA WEBSTER ORDERED CBCD Performed By: #### L 100.0100, L503.6550, L503.6030, L3100.2300, L500.4050 ####[facility] [address] [place], [address] Eosinophil percentageOrdered By: Brenda Araujo on 12-14-2024 Eosinophils/100 WBC (Bld) 0.4 % 0-5 [facility] Erythrocyte distribution wid th ratioOrdered By: Brenda Araujo on 12-14-2024 Erythrocyte distribution width (RBC) [Ratio] 12.8 % 11.6-14.6 [facility] Erythrocyte distribution wid th standard deviationOrdered By: [facility] on 12-14-2024 Erythrocyte distribution width (RBC) [Ratio] 41.6 fl 35.1-43.9 [facility] Ferritinon 12-14-2024 Ferritin [Mass/Vol] 49 ng/mL Normal 37-417 [facility] Comment on above: Order Comment: MALINDA WEBSTER ORDERED CBCD Performed By: #### L 100.0100, L503.6550, L503.6030, L3100.2300, L500.4050 ####[facility] [address] [place], [place], [address] Glomerular filtration rate ( GFR) estimation/1.73 sq m using serum, plasma, or whole bOrdered By: [facility] on 12-14-2024 GFR/1.73 sq M.predicted among non-blacks MDRD (S/P/Bld) [Vol rate/Area] 76 mL/min/{1.73_m2} >60 [facility] Hematocrit Auto (Bld) [Volum e fraction]Ordered By: [facility] on 12-14-2024 Hematocrit (Bld) [Volume fraction] 31.4 % Low 40-54 [facility] Hemoglobin measurementOrdere d By: Brenda Araujo on 12-14-2024 Hemoglobin (Bld) [Mass/Vol] 10.8 g/dL Low 13.0-16.5 [facility] Immature granulocytes/100 WB C Auto (Bld)Ordered By: Brenda Araujo on 12-14-2024 Immature granulocytes/100 WBC (Bld) 0.400 % 0.0-0.9 [facility] Iron measurement (mass/mass) Ordered By: Brenda Araujo on 12-14-2024 Iron (Unsp spec) [Mass/Mass] 24 ug/dL Low 65-175 [facility] Iron+Iron Binding Capacityon 12-14-2024 Iron [Mass/Vol] 24 ug/dL Low 65-175 [facility] Comment on above: Order Comment: MALINDA WEBSTER ORDERED CBCD Performed By: #### L 100.0100, L503.6550, L503.6030, L3100.2300, L500.4050 ####[facility] [address] [place], [address] IRON SATURATION 8.0 Low 9-55 [facility] Comment on above: Order Comment: MALINDA WEBSTER ORDERED CBCD Performed By: #### L 100.0100, L503.6550, L503.6030, L3100.2300, L500.4050 ####[facility] [address] [place], [address] TIBC 314 ug/dL Normal 250-450 [facility] Comment on above: Order Comment: MALINDA WEBSTER ORDERED CBCD Performed By: #### L 100.0100, L503.6550, L503.6030, L3100.2300, L500.4050 ####[facility] [address] [place], [address] UIBC 290 ug/dL Normal 228-428 [facility] Comment on above: Order Comment: MALINDA WEBSTER ORDERED CBCD Performed By: #### L 100.0100, L503.6550, L503.6030, L3100.2300, L500.4050 ####[facility] [address] [place], [address] MCV (mean corpuscular volume ) determinationOrdered By: Brenda Araujo on 12-14-2024 MCV (RBC) [Entitic vol] 89.0 fL 80-94 [facility] Mean corpuscular hemoglobin (MCH) determinationOrdered By: Brenda Araujo on 12-14-2024 MCH (RBC) [Entitic mass] 30.6 pg 27.0-32.0 [facility] Monocyte percentageOrdered B y: Brenda Araujo on 12-14-2024 Monocytes/100 WBC (Bld) 8.6 % 0-10 [facility] Neutrophil percentageOrdered By: Brenda Araujo on 12-14-2024 Neutrophils/100 WBC (Bld) 80.3 % High 47-70 [facility] No Panel InformationOrdered By: Brenda Araujo on 12-14-2024 24 U/L <38 [facility] 290 ug/dL 228-428 [facility] Platelet countOrdered By: Kalen Araujo on 12-14-2024 Platelets (Bld) [#/Vol] 312 10*3/uL 150-450 [facility] Potassium measurement (mass/ volume)Ordered By: Brenda Araujo on 12-14-2024 Potassium (Unsp spec) [Mass/Vol] 3.8 mmol/L 3.3-5.1 [facility] RBC Auto (Bld) [#/Vol]Ordere d By: Brenda Araujo on 12-14-2024 RBC (Bld) [#/Vol] 3.53 10*6/uL Low 4.6-6.2 [facility] Serum creatinine measurement (mass/volume)Ordered By: Brenda Araujo on 12-14-2024 Creatinine [Mass/Vol] 1.00 mg/dL 0.70-1.20 [facility] Serum globulin measurementOr dered By: Brenda Araujo on 12-14-2024 Globulin (S) [Mass/Vol] 3.0 g/dL 2.2-4.2 [facility] Serum glucose measurement (m ass/volume)Ordered By: Brenda Araujo on 12-14-2024 Glucose [Mass/Vol] 106 mg/dL High 70-99 [facility] Serum or plasma alanine carrion otransferase (ALT) measurementOrdered By: Brenda Araujo on 12-14-2024 ALT [Catalytic activity/Vol] 11 U/L <47 [facility] Serum or plasma albumin shagufta urement (mass/volume)Ordered By: Brenda Araujo on 12-14-2024 Albumin [Mass/Vol] 4.2 g/dL 3.4-4.8 [facility] Serum or plasma albumin/glob ulin mass ratioOrdered By: Brenda Araujo on 12-14-2024 Albumin/Globulin [Mass ratio] 1.4 {ratio} 0.9-2.4 [facility] Serum or plasma alkaline airam sphatase measurementOrdered By: Brenda Araujo on 12-14-2024 ALP [Catalytic activity/Vol] 116 U/L 40-129 [facility] Serum or plasma calcium shagufta urement (mass/volume)Ordered By: Brenda Araujo on 12-14-2024 Calcium [Mass/Vol] 9.3 mg/dL 7.6-11.0 [facility] Serum or plasma carcinoembry onic antigen measurement (mass/volume)Ordered By: Brenda Araujo on 12-14-2024 Carcinoembryonic Ag [Mass/Vol] 47.8 ng/mL High 0.0-4.7 [facility] Serum or plasma ferritin francy surement (mass/volume)Ordered By: Brenda Araujo on 12-14-2024 Ferritin [Mass/Vol] 49 ng/mL 37-417 [facility] Serum or plasma iron saturat ion measurement (mass fraction)Ordered By: Brenda Araujo on 12-14-2024 Iron saturation [Mass fraction] 8.0 % Low 9-55 [facility] Serum or plasma urea nitroge n measurement (mass/volume)Ordered By: Brenda Araujo on 12-14-2024 Urea nitrogen [Mass/Vol] 11 mg/dL 4-19 [facility] Sodium levelOrdered By: Tha Araujo on 12-14-2024 Sodium [Moles/Vol] 133 mmol/L 133-145 [facility] Total proteinOrdered By: Rahul Araujo on 12-14-2024 Protein [Mass/Vol] 7.3 g/dL 5.9-8.4 [facility] White blood cell (WBC) count Ordered By: Brenda Araujo on 12-14-2024 WBC (Bld) [#/Vol] 6.9 10*3/uL 4.4-11.0 [facility] Surgical pathology reportOrd ered By: Teresa Martel on 12-06-2024 Surgical pathology study [facility] Absolute lymphocyte countOrd ered By: Darrel Watts on 12-05-2024 Lymphocytes Auto (Unsp spec) [#/Vol] 0.91 10*3/uL 0.83-4.51 [facility] Absolute neutrophil countOrd ered By: Darrel Watts on 12-05-2024 Neutrophils (Bld) [#/Vol] 5.6 10*3/uL 2.0-7.7 [facility] Activated partial thrombopla stin time (aPTT) in platelet poor plasma by coagulation aOrdered By: Darrel Watts on 12-05-2024 aPTT Coag (PPP) [Time] 34.0 s 24.1-36.2 [facility] Automated lymphocyte count a s percentage of total leukocytesOrdered By: Darerl Watts on 12-05-2024 Lymphocytes/100 WBC Auto (Unsp spec) 12.1 % Low 19-41 [facility] Basophil percentageOrdered B y: Darrel Watts on 12-05-2024 Basophils/100 WBC (Bld) 0.3 % 0-1 [facility] Biopsy/Inj or Needle Placeme nton 12-05-2024 Biopsy/Inj or Needle Placement Normal [facility] CBC W/Diff, Automatedon Absolute Lymph 0.91 X10 3/uL Normal 0.83-4.51 [facility] Comment on above: Performed By: #### L 300.4310, L300.3900, L100.0100 ####[facility] [address] [place], [address] Absolute Neut 5.6 X10 3/uL Normal 2.0-7.7 [facility] Comment on above: Performed By: #### L 300.4310, L300.3900, L100.0100 ####[facility] [address] [place], [address] Basophils/100 WBC (Bld) 0.3 % Normal 0-1 [facility] Comment on above: Performed By: #### L 300.4310, L300.3900, L100.0100 ####[facility] [address] [place], [address] Eosinophils/100 WBC (Bld) 2.3 % Normal 0-5 [facility] Comment on above: Performed By: #### L 300.4310, L300.3900, L100.0100 ####[facility] [address] [place], [address] Erythrocyte distribution width (RBC) [Ratio] 12.7 % Normal 11.6-14.6 [facility] Comment on above: Performed By: #### L 300.4310, L300.3900, L100.0100 ####[facility] [address] [place], [address] Hematocrit (Bld) [Volume fraction] 29.2 % Low 40-54 [facility] Comment on above: Performed By: #### L 300.4310, L300.3900, L100.0100 ####[facility] [address] [place], [address] Hemoglobin (Bld) [Mass/Vol] 10.0 g/dL Low 13.0-16.5 [facility] Comment on above: Performed By: #### L 300.4310, L300.3900, L100.0100 ####[facility] [address] [place], [address] IG% 0.300 Normal 0.0-0.9 [facility] Comment on above: Result Comment: IG% - Immature Granulocytes (promyelocytes, myelocytes andmetamyelocytes) > 1% indicates that a LEFT SHIFT is Present. Performed By: #### L 300.4310, L300.3900, L100.0100 ####[facility] [address] [place], [address] Lymphocytes/100 WBC (Bld) 12.1 % Low 19-41 [facility] Comment on above: Performed By: #### L 300.4310, L300.3900, L100.0100 ####[facility] [address] [place], [address] MCH (RBC) [Entitic mass] 30.4 pg Normal 27.0-32.0 [facility] Comment on above: Performed By: #### L 300.4310, L300.3900, L100.0100 ####[facility] [address] [place], [address] MCHC (RBC) [Mass/Vol] 34.2 g/dL Normal 32-36 [facility] Comment on above: Performed By: #### L 300.4310, L300.3900, L100.0100 ####[facility] [address] [place], [address] MCV (RBC) [Entitic vol] 88.8 fL Normal 80-94 [facility] Comment on above: Performed By: #### L 300.4310, L300.3900, L100.0100 ####[facility] [address] [place], [address] Monocytes/100 WBC (Bld) 10.8 % High 0-10 [facility] Comment on above: Performed By: #### L 300.4310, L300.3900, L100.0100 ####[facility] [address] [place], [address] Neutrophils/100 WBC (Bld) 74.2 % High 47-70 [facility] Comment on above: Performed By: #### L 300.4310, L300.3900, L100.0100 ####[facility] [address] [place], [address] Nucleated RBC (Bld) [#/Vol] 0 10*3/uL Normal 0-5 [facility] Comment on above: Performed By: #### L 300.4310, L300.3900, L100.0100 ####[facility] [address] [place], [address] Platelet mean volume (Bld) [Entitic vol] 8.8 fL Normal 6.2-12.0 [facility] Comment on above: Performed By: #### L 300.4310, L300.3900, L100.0100 ####[facility] [address] [place], [address] Platelets (Bld) [#/Vol] 334 10*3/uL Normal 150-450 [facility] Comment on above: Performed By: #### L 300.4310, L300.3900, L100.0100 ####[facility] [address] [place], [address] RBC (Bld) [#/Vol] 3.29 10*6/uL Low 4.6-6.2 [facility] Comment on above: Performed By: #### L 300.4310, L300.3900, L100.0100 ####[facility] [address] [place], [address] RDW SD 41.4 fl Normal 35.1-43.9 [facility] Comment on above: Performed By: #### L 300.4310, L300.3900, L100.0100 ####[facility] [address] [place], [address] WBC (Bld) [#/Vol] 7.5 10*3/uL Normal 4.4-11.0 [facility] Comment on above: Performed By: #### L 300.4310, L300.3900, L100.0100 ####[facility] [address] [place], [address] Eosinophil percentageOrdered By: Darrel Watts on 12-05-2024 Eosinophils/100 WBC (Bld) 2.3 % 0-5 [facility] Erythrocyte distribution wid th ratioOrdered By: Darrel Watts on 12-05-2024 Erythrocyte distribution width (RBC) [Ratio] 12.7 % 11.6-14.6 [facility] Erythrocyte distribution wid th standard deviationOrdered By: Darrel Watts on 12-05-2024 Erythrocyte distribution width (RBC) [Ratio] 41.4 fl 35.1-43.9 [facility] Hematocrit Auto (Bld) [Volum e fraction]Ordered By: Darrel Watts on 12-05-2024 Hematocrit (Bld) [Volume fraction] 29.2 % Low 40-54 [facility] Hemoglobin measurementOrdere d By: Darrel Watts on 12-05-2024 Hemoglobin (Bld) [Mass/Vol] 10.0 g/dL Low 13.0-16.5 [facility] Immature granulocytes/100 WB C Auto (Bld)Ordered By: Darrel Watts on 12-05-2024 Immature granulocytes/100 WBC (Bld) 0.300 % 0.0-0.9 [facility] Comment on above: IG% - Immature Granu locytes (promyelocytes, myelocytes and metamyelocytes) > 1% indicates that a LEFT SHIFT is Present. Immunohistochemical Stainson 12-05-2024 Immunohistochemical Stains Normal [facility] Comment on above: Performed By: #### P IMND ####[facility] [address] [place], [place], [id number] International normalized rat io (INR) calculationOrdered By: Darrel Watts on 12-05-2024 INR Coag (Bld) [Relative time] 1.1 {INR} [facility] MCV (mean corpuscular volume ) determinationOrdered By: Darrel Watts on 12-05-2024 MCV (RBC) [Entitic vol] 88.8 fL 80-94 [facility] Mean corpuscular hemoglobin (MCH) determinationOrdered By: Darrel Watts on 12-05-2024 MCH (RBC) [Entitic mass] 30.4 pg 27.0-32.0 [facility] Mean corpuscular hemoglobin concentration (MCHC) determinationOrdered By: Darrel Watts on 12-05-2024 MCHC (RBC) [Mass/Vol] 34.2 g/dL 32-36 [facility] Mean platelet volume determi nationOrdered By: Darrel Watts on 12-05-2024 Platelet mean volume (Bld) [Entitic vol] 8.8 fL 6.2-12.0 [facility] Monocyte percentageOrdered B y: Darrel Watts on 12-05-2024 Monocytes/100 WBC (Bld) 10.8 % High 0-10 [facility] Neutrophil percentageOrdered By: Darrel Watts on 12-05-2024 Neutrophils/100 WBC (Bld) 74.2 % High 47-70 [facility] Nucleated red blood cell per centageOrdered By: Darrel Watts on 12-05-2024 Nucleated RBC/100 WBC (Bld) [Ratio] 0 % 0-5 [facility] Partial Thromboplast Timeon 12-05-2024 aPTT Coag (Bld) [Time] 34.0 s Normal 24.1-36.2 [facility] Comment on above: Performed By: #### L 300.4310, L300.3900, L100.0100 ####[facility] [address] [place], [address] Platelet countOrdered By: Gopi Watts on 12-05-2024 Platelets (Bld) [#/Vol] 334 10*3/uL 150-450 [facility] Prothrombin Time w/INRon INR Coag (PPP) [Relative time] 1.1 {INR} Normal [facility] Comment on above: Performed By: #### L 300.4310, L300.3900, L100.0100 ####[facility] [address] [place], [address] PT Coag (PPP) [Time] 14.0 s Normal 11.7-14.9 [facility] Comment on above: Performed By: #### L 300.4310, L300.3900, L100.0100 ####[facility] [address] [place], [address] Prothrombin timeOrdered By: Darrel Watts on 12-05-2024 PT Coag (PPP) [Time] 14.0 s 11.7-14.9 [facility] RBC Auto (Bld) [#/Vol]Ordere d By: Darrel Watts on 12-05-2024 RBC (Bld) [#/Vol] 3.29 10*6/uL Low 4.6-6.2 [facility] White blood cell (WBC) count Ordered By: Darrel Watts on 12-05-2024 WBC (Bld) [#/Vol] 7.5 10*3/uL 4.4-11.0 [facility] Gastroenterology Visit Repor ton 12-04-2024 Gastroenterology Visit Report Normal [facility] Chest WITH Contraston 2024 Chest WITH Contrast Normal [facility] Echo Complete W/ Contraston 11-28-2024 Echo Complete W/ Contrast Normal [facility] Oncology Visit Reporton 11-01 Oncology Visit Report Normal [facility] Absolute lymphocyte countOrd ered By: Neville Jang on 11-20-2024 Lymphocytes Auto (Unsp spec) [#/Vol] 1.21 10*3/uL 0.83-4.51 [facility] Absolute neutrophil countOrd ered By: Neville Jang on 11-20-2024 Neutrophils (Bld) [#/Vol] 7.6 10*3/uL 2.0-7.7 [facility] Automated lymphocyte count a s percentage of total leukocytesOrdered By: Neville Jang on 11-20-2024 Lymphocytes/100 WBC Auto (Unsp spec) 12.0 % Low 19-41 [facility] Basophil percentageOrdered B y: Neville Jang on 11-20-2024 Basophils/100 WBC (Bld) 0.3 % 0-1 [facility] CBC W/Diff, Automatedon 10-31 Absolute Lymph 1.21 X10 3/uL Normal 0.83-4.51 [facility] Comment on above: Performed By: #### L 100.0100 ####[facility] [address] [place], [address] Absolute Neut 7.6 X10 3/uL Normal 2.0-7.7 [facility] Comment on above: Performed By: #### L 100.0100 ####[facility] [address] [place], [address] Basophils/100 WBC (Bld) 0.3 % Normal 0-1 [facility] Comment on above: Performed By: #### L 100.0100 ####[facility] [address] [place], [address] Eosinophils/100 WBC (Bld) 1.7 % Normal 0-5 [facility] Comment on above: Performed By: #### L 100.0100 ####[facility] [address] [place], [address] Erythrocyte distribution width (RBC) [Ratio] 12.6 % Normal 11.6-14.6 [facility] Comment on above: Performed By: #### L 100.0100 ####[facility] [address] [place], [address] Hematocrit (Bld) [Volume fraction] 29.4 % Low 40-54 [facility] Comment on above: Performed By: #### L 100.0100 ####[facility] [address] [place], [address] Hemoglobin (Bld) [Mass/Vol] 10.3 g/dL Low 13.0-16.5 [facility] Comment on above: Performed By: #### L 100.0100 ####[facility] [address] [place], [address] IG% 0.300 Normal 0.0-0.9 [facility] Comment on above: Result Comment: IG% - Immature Granulocytes (promyelocytes, myelocytes andmetamyelocytes) > 1% indicates that a LEFT SHIFT is Present. Performed By: #### L 100.0100 ####[facility] [address] [place], [address] Lymphocytes/100 WBC (Bld) 12.0 % Low 19-41 [facility] Comment on above: Performed By: #### L 100.0100 ####[facility] [address] [place], [address] MCH (RBC) [Entitic mass] 30.8 pg Normal 27.0-32.0 [facility] Comment on above: Performed By: #### L 100.0100 ####[facility] [address] [place], [address] MCHC (RBC) [Mass/Vol] 35.0 g/dL Normal 32-36 [facility] Comment on above: Performed By: #### L 100.0100 ####[facility] [address] [place], [address] MCV (RBC) [Entitic vol] 88.0 fL Normal 80-94 [facility] Comment on above: Performed By: #### L 100.0100 ####[facility] [address] [place], [address] Monocytes/100 WBC (Bld) 10.2 % High 0-10 [facility] Comment on above: Performed By: #### L 100.0100 ####[facility] [address] [place], [address] Neutrophils/100 WBC (Bld) 75.5 % High 47-70 [facility] Comment on above: Performed By: #### L 100.0100 ####[facility] [address] [place], [address] Nucleated RBC (Bld) [#/Vol] 0 10*3/uL Normal 0-5 [facility] Comment on above: Performed By: #### L 100.0100 ####[facility] [address] [place], [address] Platelet mean volume (Bld) [Entitic vol] 8.7 fL Normal 6.2-12.0 [facility] Comment on above: Performed By: #### L 100.0100 ####[facility] [address] [place], [address] Platelets (Bld) [#/Vol] 314 10*3/uL Normal 150-450 [facility] Comment on above: Performed By: #### L 100.0100 ####[facility] [address] [place], [address] RBC (Bld) [#/Vol] 3.34 10*6/uL Low 4.6-6.2 [facility] Comment on above: Performed By: #### L 100.0100 ####[facility] [address] [place], [address] RDW SD 40.2 fl Normal 35.1-43.9 [facility] Comment on above: Performed By: #### L 100.0100 ####[facility] [address] [place], [address] WBC (Bld) [#/Vol] 10.1 10*3/uL Normal 4.4-11.0 [facility] Comment on above: Performed By: #### L 100.0100 ####[facility] [address] [place], [address] Colonoscopy Reporton Colonoscopy Report Normal [facility] Discharge Instructionon 10-31 Discharge Instruction Normal [facility] Eosinophil percentageOrdered By: Neville Jang on 11-20-2024 Eosinophils/100 WBC (Bld) 1.7 % 0-5 [facility] Erythrocyte distribution wid th (RBC) [Ratio]Ordered By: Neville Jang on 11-20-2024 Erythrocyte distribution width (RBC) [Entitic vol] 40.2 fL 35.1-43.9 [facility] Erythrocyte distribution wid th ratioOrdered By: Neville Jang on 11-20-2024 Erythrocyte distribution width (RBC) [Ratio] 12.6 % 11.6-14.6 [facility] Erythrocyte distribution wid th standard deviationOrdered By: Neville Jang on 11-20-2024 Erythrocyte distribution width (RBC) [Ratio] 40.2 fl 35.1-43.9 [facility] Hematocrit Auto (Bld) [Volum e fraction]Ordered By: Neville Jang on 11-20-2024 Hematocrit (Bld) [Volume fraction] 29.4 % Low 40-54 [facility] Hemoglobin measurementOrdere d By: Neville Jang on 11-20-2024 Hemoglobin (Bld) [Mass/Vol] 10.3 g/dL Low 13.0-16.5 [facility] Immature granulocytes/100 WB C Auto (Bld)Ordered By: Neville Jang on 11-20-2024 Immature granulocytes/100 WBC (Bld) 0.300 % 0.0-0.9 [facility] Comment on above: IG% - Immature Granu locytes (promyelocytes, myelocytes and metamyelocytes) > 1% indicates that a LEFT SHIFT is Present. Lymphocytes Auto (Unsp spec) [#/Vol]Ordered By: Neville Jang on 11-20-2024 Lymphocytes (Bld) [#/Vol] 1.21 10*3/uL 0.83-4.51 [facility] Lymphocytes/100 WBC Auto (Un sp spec)Ordered By: Neville Jang on 11-20-2024 Lymphocytes/100 WBC (Bld) 12.0 % Low 19-41 [facility] MCV (mean corpuscular volume ) determinationOrdered By: Neville Jang on 11-20-2024 MCV (RBC) [Entitic vol] 88.0 fL 80-94 [facility] MR/IOTDWQRR0ez 11-20-2024 MR/POSTOPAN2 Normal [facility] Mean corpuscular hemoglobin (MCH) determinationOrdered By: Neville Jang on 11-20-2024 MCH (RBC) [Entitic mass] 30.8 pg 27.0-32.0 [facility] Mean corpuscular hemoglobin concentration (MCHC) determinationOrdered By: Neville Jang on 11-20-2024 MCHC (RBC) [Mass/Vol] 35.0 g/dL 32-36 [facility] Mean platelet volume determi nationOrdered By: Neville Jang on 11-20-2024 Platelet mean volume (Bld) [Entitic vol] 8.7 fL 6.2-12.0 [facility] Monocyte percentageOrdered B y: Neville Jang on 11-20-2024 Monocytes/100 WBC (Bld) 10.2 % High 0-10 [facility] Neutrophil percentageOrdered By: Neville Jang on 11-20-2024 Neutrophils/100 WBC (Bld) 75.5 % High 47-70 [facility] Nucleated red blood cell per centageOrdered By: Neville Jang on 11-20-2024 Nucleated RBC/100 WBC (Bld) [Ratio] 0 % 0-5 [facility] Platelet countOrdered By: Kalen Jang on 11-20-2024 Platelets (Bld) [#/Vol] 314 10*3/uL 150-450 [facility] RBC Auto (Bld) [#/Vol]Ordere d By: Neville Jang on 11-20-2024 RBC (Bld) [#/Vol] 3.34 10*6/uL Low 4.6-6.2 [facility] White blood cell (WBC) count Ordered By: Neville Jang on 11-20-2024 WBC (Bld) [#/Vol] 10.1 10*3/uL 4.4-11.0 [facility] Anion gap in Serum or Plasma Ordered By: Kelvin Schrader on 11-19-2024 Anion gap [Moles/Vol] 12 mmol/L - [facility] BUN/creatinine ratioOrdered By: Kelvin Schrader on 11-19-2024 Urea nitrogen/Creatinine [Mass ratio] 10.4 mg/mg - [facility] Basic Metabolic Profile (BMP )on 11-19-2024 BUN/CRE 10.4 RATIO Normal - [facility] Comment on above: Performed By: #### L 100.0100, L500.2500 ####[facility] [address] [place], [address] Calcium [Mass/Vol] 8.8 mg/dL Normal 7.6-11.0 [facility] Comment on above: Performed By: #### L 100.0100, L500.2500 ####[facility] [address] [place], [address] Chloride [Moles/Vol] 99 mmol/L Normal 98-108 [facility] Comment on above: Performed By: #### L 100.0100, L500.2500 ####[facility] [address] [place], [address] CO2 [Moles/Vol] 21.0 mmol/L Normal 21.0-32.0 [facility] Comment on above: Performed By: #### L 100.0100, L500.2500 ####[facility] [address] [place], [address] Creatinine [Mass/Vol] 0.95 mg/dL Normal 0.70-1.20 [facility] Comment on above: Performed By: #### L 100.0100, L500.2500 ####[facility] [address] [place], [address] ECRCL 57.98 ml/min Normal 50-250 [facility] Comment on above: Performed By: #### L 100.0100, L500.2500 ####[facility] [address] [place], [address] GAP 12 Normal 5-15 [facility] Comment on above: Performed By: #### L 100.0100, L500.2500 ####[facility] [address] [place], [address] GFR/1.73 sq M.predicted among non-blacks MDRD (S/P/Bld) [Vol rate/Area] 81 mL/min/{1.73_m2} Normal >60 [facility] Comment on above: Result Comment: mL/m in/1.73m2 CKD-EPI Creatinine Equation (2020) Performed By: #### L 100.0100, L500.2500 ####[facility] [address] [place], [address] Glucose [Mass/Vol] 99 mg/dL Normal 70-99 [facility] Comment on above: Performed By: #### L 100.0100, L500.2500 ####[facility] [address] [place], [address] Potassium [Moles/Vol] 4.0 mmol/L Normal 3.3-5.1 [facility] Comment on above: Performed By: #### L 100.0100, L500.2500 ####[facility] [address] [place], [address] Sodium [Moles/Vol] 132 mmol/L Low 133-145 [facility] Comment on above: Performed By: #### L 100.0100, L500.2500 ####[facility] [address] [place], [address] Urea nitrogen [Mass/Vol] 10 mg/dL Normal 4-19 [facility] Comment on above: Performed By: #### L 100.0100, L500.2500 ####[facility] [address] [place], [address] CBC W/Diff, Automatedon 10-31 Absolute Lymph 1.20 X10 3/uL Normal 0.83-4.51 [facility] Comment on above: Performed By: #### L 100.0100, L500.2500 ####[facility] [address] [place], [address] Absolute Neut 6.2 X10 3/uL Normal 2.0-7.7 [facility] Comment on above: Performed By: #### L 100.0100, L500.2500 ####[facility] [address] [place], [address] Basophils/100 WBC (Bld) 0.2 % Normal 0-1 [facility] Comment on above: Performed By: #### L 100.0100, L500.2500 ####[facility] [address] [place], [address] Eosinophils/100 WBC (Bld) 1.9 % Normal 0-5 [facility] Comment on above: Performed By: #### L 100.0100, L500.2500 ####[facility] [address] [place], [address] Erythrocyte distribution width (RBC) [Ratio] 12.5 % Normal 11.6-14.6 [facility] Comment on above: Performed By: #### L 100.0100, L500.2500 ####[facility] [address] [place], [address] Hematocrit (Bld) [Volume fraction] 32.0 % Low 40-54 [facility] Comment on above: Performed By: #### L 100.0100, L500.2500 ####[facility] [address] [place], [address] Hemoglobin (Bld) [Mass/Vol] 10.9 g/dL Low 13.0-16.5 [facility] Comment on above: Performed By: #### L 100.0100, L500.2500 ####[facility] [address] [place], [address] IG% 0.400 Normal 0.0-0.9 [facility] Comment on above: Result Comment: IG% - Immature Granulocytes (promyelocytes, myelocytes andmetamyelocytes) > 1% indicates that a LEFT SHIFT is Present. Performed By: #### L 100.0100, L500.2500 ####[facility] [address] [place], [address] Lymphocytes/100 WBC (Bld) 14.2 % Low 19-41 [facility] Comment on above: Performed By: #### L 100.0100, L500.2500 ####[facility] [address] [place], [address] MCH (RBC) [Entitic mass] 30.4 pg Normal 27.0-32.0 [facility] Comment on above: Performed By: #### L 100.0100, L500.2500 ####[facility] [address] [place], [address] MCHC (RBC) [Mass/Vol] 34.1 g/dL Normal 32-36 [facility] Comment on above: Performed By: #### L 100.0100, L500.2500 ####[facility] [address] [place], [address] MCV (RBC) [Entitic vol] 89.1 fL Normal 80-94 [facility] Comment on above: Performed By: #### L 100.0100, L500.2500 ####[facility] [address] [place], [address] Monocytes/100 WBC (Bld) 10.0 % Normal 0-10 [facility] Comment on above: Performed By: #### L 100.0100, L500.2500 ####[facility] [address] [place], [address] Neutrophils/100 WBC (Bld) 73.3 % High 47-70 [facility] Comment on above: Performed By: #### L 100.0100, L500.2500 ####[facility] [address] [place], [address] Nucleated RBC (Bld) [#/Vol] 0 10*3/uL Normal 0-5 [facility] Comment on above: Performed By: #### L 100.0100, L500.2500 ####[facility] [address] [place], [address] Platelet mean volume (Bld) [Entitic vol] 9.2 fL Normal 6.2-12.0 [facility] Comment on above: Performed By: #### L 100.0100, L500.2500 ####[facility] [address] [place], [address] Platelets (Bld) [#/Vol] 353 10*3/uL Normal 150-450 [facility] Comment on above: Performed By: #### L 100.0100, L500.2500 ####[facility] [address] [place], [address] RBC (Bld) [#/Vol] 3.59 10*6/uL Low 4.6-6.2 [facility] Comment on above: Performed By: #### L 100.0100, L500.2500 ####[facility] [address] [place], [address] RDW SD 41.0 fl Normal 35.1-43.9 [facility] Comment on above: Performed By: #### L 100.0100, L500.2500 ####[facility] [address] [place], [address] WBC (Bld) [#/Vol] 8.4 10*3/uL Normal 4.4-11.0 [facility] Comment on above: Performed By: #### L 100.0100, L500.2500 ####[facility] [address] [place], [address] Carbon dioxide, total [Moles /volume] in Central venous bloodOrdered By: Kelvin Schrader on 11-19-2024 CO2 [Moles/Vol] 21.0 mmol/L 21.0-32.0 [facility] Chloride assayOrdered By: Marybel Schrader on 11-19-2024 Chloride [Moles/Vol] 99 mmol/L 98-108 [facility] Estimation of creatinine dunia aranceOrdered By: Kelvin Schrader on 11-19-2024 Estimated Creatinine Clearance Calc 57.98 ml/min 50-250 [facility] GFR/1.73 sq M.predicted gregg g non-blacks MDRD (S/P/Bld) [Vol rate/Area]Ordered By: Kelvin Schrader on 11-19-2024 Estimated GFR (MDRD) Non-Af Amer 81 >60 [facility] Comment on above: mL/min/1.73m2 CKD-EP I Creatinine Equation (2020) Glomerular filtration rate ( GFR) estimation/1.73 sq m using serum, plasma, or whole bOrdered By: Kelvin Schrader on 11-19-2024 GFR/1.73 sq M.predicted among non-blacks MDRD (S/P/Bld) [Vol rate/Area] 81 mL/min/{1.73_m2} >60 [facility] Comment on above: mL/min/1.73m2 CKD-EP I Creatinine Equation (2020) MR/CON.PCM.GIon 11-19-2024 MR/CON.PCM.GI Normal [facility] MR/POSTOP.ANEon 11-19-2024 MR/POSTOP.ANE [facility] Potassium (Unsp spec) [Mass/ Vol]Ordered By: Kelvin Schrader on 11-19-2024 Potassium [Moles/Vol] 4.0 mmol/L 3.3-5.1 [facility] Potassium measurement (mass/ volume)Ordered By: Kelvin Schrader on 11-19-2024 Potassium (Unsp spec) [Mass/Vol] 4.0 mmol/L 3.3-5.1 [facility] Serum creatinine measurement (mass/volume)Ordered By: Kelvin Schrader on 11-19-2024 Creatinine [Mass/Vol] 0.95 mg/dL 0.70-1.20 [facility] Serum glucose measurement (m ass/volume)Ordered By: Kelvin Schrader on 11-19-2024 Glucose [Mass/Vol] 99 mg/dL 70-99 [facility] Serum or plasma calcium shagufta urement (mass/volume)Ordered By: Kelvin Schrader on 11-19-2024 Calcium [Mass/Vol] 8.8 mg/dL 7.6-11.0 [facility] Serum or plasma urea nitroge n measurement (mass/volume)Ordered By: Kelvin Schrader on 11-19-2024 Urea nitrogen [Mass/Vol] 10 mg/dL 11-17 [facility] Sodium levelOrdered By: Vernon Schrader on 11-19-2024 Sodium [Moles/Vol] 132 mmol/L Low 133-145 [facility] Abdomen/Pelvis W IV Cont ONL Yon 11-18-2024 Abdomen/Pelvis W IV Cont ONLY Normal [facility] Absolute neutrophil countOrd ered By: Radha Damon on 11-18-2024 Neutrophils (Bld) [#/Vol] 5.7 10*3/uL 2.0-7.7 [facility] Anion gap in Serum or Plasma Ordered By: Radha Damon on 11-18-2024 Anion gap [Moles/Vol] 11 mmol/L 12-13 [facility] BUN/creatinine ratioOrdered By: Radha Damon on 11-18-2024 Urea nitrogen/Creatinine [Mass ratio] 13.7 mg/mg 05-20 [facility] Basic Metabolic Profile (BMP )on 11-18-2024 BUN/CRE 13.7 RATIO Normal 05-20 [facility] Comment on above: Performed By: #### L 500.2500, L100.0100 ####[facility] [address] [place], [address] Calcium [Mass/Vol] 8.9 mg/dL Normal 7.6-11.0 [facility] Comment on above: Performed By: #### L 500.2500, L100.0100 ####[facility] [address] [place], [address] Chloride [Moles/Vol] 95 mmol/L Low 98-108 [facility] Comment on above: Performed By: #### L 500.2500, L100.0100 ####[facility] [address] [place], [address] CO2 [Moles/Vol] 24.0 mmol/L Normal 21.0-32.0 [facility] Comment on above: Performed By: #### L 500.2500, L100.0100 ####[facility] [address] [place], [address] Creatinine [Mass/Vol] 1.02 mg/dL Normal 0.70-1.20 [facility] Comment on above: Performed By: #### L 500.2500, L100.0100 ####[facility] [address] [place], [address] ECRCL 54.00 ml/min Normal 50-250 [facility] Comment on above: Performed By: #### L 500.2500, L100.0100 ####[facility] [address] [place], [address] GAP 11 Normal 5-15 [facility] Comment on above: Performed By: #### L 500.2500, L100.0100 ####[facility] [address] [place], [address] GFR/1.73 sq M.predicted among non-blacks MDRD (S/P/Bld) [Vol rate/Area] 74 mL/min/{1.73_m2} Normal >60 [facility] Comment on above: Result Comment: mL/m in/1.73m2 CKD-EPI Creatinine Equation (2020) Performed By: #### L 500.2500, L100.0100 ####[facility] [address] [place], [address] Glucose [Mass/Vol] 104 mg/dL High 70-99 [facility] Comment on above: Performed By: #### L 500.2500, L100.0100 ####[facility] [address] [place], [address] Potassium [Moles/Vol] 4.1 mmol/L Normal 3.3-5.1 [facility] Comment on above: Performed By: #### L 500.2500, L100.0100 ####[facility] [address] [place], [address] Sodium [Moles/Vol] 130 mmol/L Low 133-145 [facility] Comment on above: Performed By: #### L 500.2500, L100.0100 ####[facility] [address] [place], [address] Urea nitrogen [Mass/Vol] 14 mg/dL Normal 4-19 [facility] Comment on above: Performed By: #### L 500.2500, L100.0100 ####[facility] [address] [place], [address] Basophil percentageOrdered B y: Radha Damon on 11-18-2024 Basophils/100 WBC (Bld) 0.3 % 0-1 [facility] CBC W/Diff, Automatedon 10-31 0-2024 Absolute Lymph 1.14 X10 3/uL Normal 0.83-4.51 [facility] Comment on above: Performed By: #### L 500.2500, L100.0100 ####[facility] [address] [place], [address] Absolute Neut 5.7 X10 3/uL Normal 2.0-7.7 [facility] Comment on above: Performed By: #### L 500.2500, L100.0100 ####[facility] [address] [place], [address] Basophils/100 WBC (Bld) 0.3 % Normal 0-1 [facility] Comment on above: Performed By: #### L 500.2500, L100.0100 ####[facility] [address] [place], [address] Eosinophils/100 WBC (Bld) 1.8 % Normal 0-5 [facility] Comment on above: Performed By: #### L 500.2500, L100.0100 ####[facility] [address] [place], [address] Erythrocyte distribution width (RBC) [Ratio] 12.4 % Normal 11.6-14.6 [facility] Comment on above: Performed By: #### L 500.2500, L100.0100 ####[facility] [address] [place], [address] Hematocrit (Bld) [Volume fraction] 29.1 % Low 40-54 [facility] Comment on above: Performed By: #### L 500.2500, L100.0100 ####[facility] [address] [place], [address] Hemoglobin (Bld) [Mass/Vol] 10.3 g/dL Low 13.0-16.5 [facility] [facility] Comment on above: Performed By: #### L 500.2500, L100.0100 ####[facility] [address] [place], [address] IG% 0.400 Normal 0.0-0.9 [facility] Comment on above: Result Comment: IG% - Immature Granulocytes (promyelocytes, myelocytes andmetamyelocytes) > 1% indicates that a LEFT SHIFT is Present. Performed By: #### L 500.2500, L100.0100 ####[facility] [address] [place], [address] Lymphocytes/100 WBC (Bld) 14.4 % Low 19-41 [facility] Comment on above: Performed By: #### L 500.2500, L100.0100 ####[facility] [address] [place], [address] MCH (RBC) [Entitic mass] 30.8 pg Normal 27.0-32.0 [facility] Comment on above: Performed By: #### L 500.2500, L100.0100 ####[facility] [address] [place], [address] MCHC (RBC) [Mass/Vol] 35.4 g/dL Normal 32-36 [facility] Comment on above: Performed By: #### L 500.2500, L100.0100 ####[facility] [address] [place], [address] MCV (RBC) [Entitic vol] 87.1 fL Normal 80-94 [facility] Comment on above: Performed By: #### L 500.2500, L100.0100 ####[facility] [address] [place], [address] Monocytes/100 WBC (Bld) 11.2 % High 0-10 [facility] Comment on above: Performed By: #### L 500.2500, L100.0100 ####[facility] [address] [place], [address] Neutrophils/100 WBC (Bld) 71.9 % High 47-70 [facility] Comment on above: Performed By: #### L 500.2500, L100.0100 ####[facility] [address] [place], [address] Nucleated RBC (Bld) [#/Vol] 0 10*3/uL Normal 0-5 [facility] Comment on above: Performed By: #### L 500.2500, L100.0100 ####[facility] [address] [place], [address] Platelet mean volume (Bld) [Entitic vol] 8.6 fL Normal 6.2-12.0 [facility] Comment on above: Performed By: #### L 500.2500, L100.0100 ####[facility] [address] [place], [address] Platelets (Bld) [#/Vol] 333 10*3/uL Normal 150-450 [facility] Comment on above: Performed By: #### L 500.2500, L100.0100 ####[facility] [address] [place], [address] RBC (Bld) [#/Vol] 3.34 10*6/uL Low 4.6-6.2 [facility] Comment on above: Performed By: #### L 500.2500, L100.0100 ####[facility] [address] [place], [address] RDW SD 39.8 fl Normal 35.1-43.9 [facility] Comment on above: Performed By: #### L 500.2500, L100.0100 ####[facility] [address] [place], [address] WBC (Bld) [#/Vol] 7.9 10*3/uL Normal 4.4-11.0 [facility] Comment on above: Performed By: #### L 500.2500, L100.0100 ####[facility] [address] [place], [address] Carbon dioxide, total [Moles /volume] in Central venous bloodOrdered By: Radha Damon on 11-18-2024 CO2 [Moles/Vol] 24.0 mmol/L 21.0-32.0 [facility] Chloride assayOrdered By: Marybel Damon on 11-18-2024 Chloride [Moles/Vol] 95 mmol/L Low 98-108 [facility] Emergency Department Summary on 11-18-2024 Emergency Department Summary Normal [facility] Eosinophil percentageOrdered By: Radha Damon on 11-18-2024 Eosinophils/100 WBC (Bld) 1.8 % 0-5 [facility] Erythrocyte distribution wid th (RBC) [Ratio]Ordered By: Radha Damon on 11-18-2024 Erythrocyte distribution width (RBC) [Entitic vol] 39.8 fL 35.1-43.9 [facility] Erythrocyte distribution wid th ratioOrdered By: Radha Dmaon on 11-18-2024 Erythrocyte distribution width (RBC) [Ratio] 12.4 % 11.6-14.6 [facility] Estimation of creatinine dunia aranceOrdered By: Radha Damon on 11-18-2024 Estimated Creatinine Clearance Calc 54.00 ml/min 50-250 [facility] GFR/1.73 sq M.predicted gregg g non-blacks MDRD (S/P/Bld) [Vol rate/Area]Ordered By: Radha Damon on 11-18-2024 Estimated GFR (MDRD) Non-Af Amer 74 >60 [facility] Comment on above: mL/min/1.73m2 CKD-EP I Creatinine Equation (2020) H AND P Exam - [facility] 11-18-2024 H&P Exam - Hospitalist Normal [facility] Hematocrit Auto (Bld) [Volum e fraction]Ordered By: Radha Damon on 11-18-2024 Hematocrit (Bld) [Volume fraction] 29.1 % Low 40-54 [facility] Hemoglobin measurementOrdere d By: Radha Damon on 11-18-2024 Hemoglobin (Bld) [Mass/Vol] 10.3 g/dL Low 13.0-16.5 [facility] Immature granulocytes/100 WB C Auto (Bld)Ordered By: Radha Damon on 11-18-2024 Immature granulocytes/100 WBC (Bld) 0.400 % 0.0-0.9 [facility] Comment on above: IG% - Immature Granu locytes (promyelocytes, myelocytes and metamyelocytes) > 1% indicates that a LEFT SHIFT is Present. Lymphocytes Auto (Unsp spec) [#/Vol]Ordered By: Radha Damon on 11-18-2024 Lymphocytes (Bld) [#/Vol] 1.14 10*3/uL 0.83-4.51 [facility] Lymphocytes/100 WBC Auto (Un sp spec)Ordered By: Radha Damon on 11-18-2024 Lymphocytes/100 WBC (Bld) 14.4 % Low 19-41 [facility] MCV (mean corpuscular volume ) determinationOrdered By: Radha Damon on 11-18-2024 MCV (RBC) [Entitic vol] 87.1 fL 80-94 [facility] Mean corpuscular hemoglobin (MCH) determinationOrdered By: Radha Damon on 11-18-2024 MCH (RBC) [Entitic mass] 30.8 pg 27.0-32.0 [facility] Mean corpuscular hemoglobin concentration (MCHC) determinationOrdered By: Radha Damon on 11-18-2024 MCHC (RBC) [Mass/Vol] 35.4 g/dL 32-36 [facility] Mean platelet volume determi nationOrdered By: Radha Damon on 11-18-2024 Platelet mean volume (Bld) [Entitic vol] 8.6 fL 6.2-12.0 [facility] Monocyte percentageOrdered B y: Radha Damon on 11-18-2024 Monocytes/100 WBC (Bld) 11.2 % High 0-10 [facility] Neutrophil percentageOrdered By: Radha Damon on 11-18-2024 Neutrophils/100 WBC (Bld) 71.9 % High 47-70 [facility] Nucleated red blood cell per centageOrdered By: Radha Damon on 11-18-2024 Nucleated RBC/100 WBC (Bld) [Ratio] 0 % 0-5 [facility] Platelet countOrdered By: Marybel Damon on 11-18-2024 Platelets (Bld) [#/Vol] 333 10*3/uL 150-450 [facility] Potassium (Unsp spec) [Mass/ Vol]Ordered By: Radha Damon on 11-18-2024 Potassium [Moles/Vol] 4.1 mmol/L 3.3-5.1 [facility] RBC Auto (Bld) [#/Vol]Ordere d By: Radha Damon on 11-18-2024 RBC (Bld) [#/Vol] 3.34 10*6/uL Low 4.6-6.2 [facility] Serum creatinine measurement (mass/volume)Ordered By: Radha Damon on 11-18-2024 Creatinine [Mass/Vol] 1.02 mg/dL 0.70-1.20 [facility] Serum glucose measurement (m ass/volume)Ordered By: Radha Damon on 11-18-2024 Glucose [Mass/Vol] 104 mg/dL High 70-99 [facility] Serum or plasma calcium shagufta urement (mass/volume)Ordered By: Radha Damon on 11-18-2024 Calcium [Mass/Vol] 8.9 mg/dL 7.6-11.0 [facility] Serum or plasma urea nitroge n measurement (mass/volume)Ordered By: Radha Damon on 11-18-2024 Urea nitrogen [Mass/Vol] 14 mg/dL 4-19 [facility] Sodium levelOrdered By: Seth Damon on 11-18-2024 Sodium [Moles/Vol] 130 mmol/L Low 133-145 [facility] Type AND Screenon 11-18-2024 Ab SCREEN GEL Negative Normal [facility] Comment on above: Order Comment: HGI Performed By: #### B TS ####[facility] [address] [place], [place], [address] White blood cell (WBC) count Ordered By: Radha Damon on 11-18-2024 WBC (Bld) [#/Vol] 7.9 10*3/uL 4.4-11.0 [facility] Ova and Parasites 8623on OP Normal [facility] Comment on above: Performed By: #### M 100.0605, M100.6796, M100.637, M600.5000 ####[facility] [address] [place], [place], [address] 12 Lead EKGon 11-07-2024 12 Lead EKG Normal [facility] Absolute lymphocyte countOrd ered By: Stevie Harrington on 11-07-2024 Lymphocytes Auto (Unsp spec) [#/Vol] 0.91 10*3/uL 0.83-4.51 [facility] Absolute neutrophil countOrd ered By: Stevie Harrington on 11-07-2024 Neutrophils (Bld) [#/Vol] 4.3 10*3/uL 2.0-7.7 [facility] Anion gap in Serum or Plasma Ordered By: Stevie Harrington on 11-07-2024 Anion gap [Moles/Vol] 14 mmol/L 5-15 [facility] Automated lymphocyte count a s percentage of total leukocytesOrdered By: Stevie Harrington on 11-07-2024 Lymphocytes/100 WBC Auto (Unsp spec) 14.8 % Low 19-41 [facility] BUN/creatinine ratioOrdered By: Stevie Harrington on 11-07-2024 Urea nitrogen/Creatinine [Mass ratio] 16.0 mg/mg 10- [facility] Basic Metabolic Profile (BMP )on 11-07-2024 BUN/CRE 16.0 RATIO Normal 10- [facility] Comment on above: Performed By: #### L 500.2500, L100.0100 ####[facility] [address] [place], [address] Calcium [Mass/Vol] 8.6 mg/dL Normal 7.6-11.0 [facility] Comment on above: Performed By: #### L 500.2500, L100.0100 ####[facility] [address] [place], [address] Chloride [Moles/Vol] 96 mmol/L Low 98-108 [facility] Comment on above: Performed By: #### L 500.2500, L100.0100 ####[facility] [address] [place], [address] CO2 [Moles/Vol] 18.1 mmol/L Low 21.0-32.0 [facility] Comment on above: Performed By: #### L 500.2500, L100.0100 ####[facility] [address] [place], [address] Creatinine [Mass/Vol] 1.02 mg/dL Normal 0.70-1.20 [facility] Comment on above: Performed By: #### L 500.2500, L100.0100 ####[facility] [address] [place], [address] ECRCL 54.00 ml/min Normal 50-250 [facility] Comment on above: Performed By: #### L 500.2500, L100.0100 ####[facility] [address] [place], [address] GAP 14 Normal 5-15 [facility] Comment on above: Performed By: #### L 500.2500, L100.0100 ####[facility] [address] [place], [address] GFR/1.73 sq M.predicted among non-blacks MDRD (S/P/Bld) [Vol rate/Area] 74 mL/min/{1.73_m2} Normal >60 [facility] Comment on above: Result Comment: mL/m in/1.73m2 CKD-EPI Creatinine Equation (2020) Performed By: #### L 500.2500, L100.0100 ####[facility] [address] [place], [address] Glucose [Mass/Vol] 92 mg/dL Normal 70-99 [facility] Comment on above: Performed By: #### L 500.2500, L100.0100 ####[facility] [address] [place], [address] Potassium [Moles/Vol] 3.8 mmol/L Normal 3.3-5.1 [facility] Comment on above: Performed By: #### L 500.2500, L100.0100 ####[facility] [address] [place], [address] Sodium [Moles/Vol] 128 mmol/L Low 133-145 [facility] Comment on above: Performed By: #### L 500.2500, L100.0100 ####[facility] [address] [place], [address] Urea nitrogen [Mass/Vol] 16 mg/dL Normal 4-19 [facility] Comment on above: Performed By: #### L 500.2500, L100.0100 ####[facility] [address] [place], [address] Basophil percentageOrdered B y: Stevie Harrington on 11-07-2024 Basophils/100 WBC (Bld) 0.5 % 0-1 [facility] CBC W/Diff, Automatedon Absolute Lymph 0.91 X10 3/uL Normal 0.83-4.51 [facility] Comment on above: Performed By: #### L 500.2500, L100.0100 ####[facility] [address] [place], [address] Absolute Neut 4.3 X10 3/uL Normal 2.0-7.7 [facility] Comment on above: Performed By: #### L 500.2500, L100.0100 ####[facility] [address] [place], [address] Basophils/100 WBC (Bld) 0.5 % Normal 0-1 [facility] Comment on above: Performed By: #### L 500.2500, L100.0100 ####[facility] [address] [place], [address] Eosinophils/100 WBC (Bld) 1.3 % Normal 0-5 [facility] Comment on above: Performed By: #### L 500.2500, L100.0100 ####[facility] [address] [place], [address] Erythrocyte distribution width (RBC) [Ratio] 12.3 % Normal 11.6-14.6 [facility] Comment on above: Performed By: #### L 500.2500, L100.0100 ####[facility] [address] [place], [address] Hematocrit (Bld) [Volume fraction] 34.0 % Low 40-54 [facility] Comment on above: Performed By: #### L 500.2500, L100.0100 ####[facility] [address] [place], [address] Hemoglobin (Bld) [Mass/Vol] 11.9 g/dL Low 13.0-16.5 [facility] Comment on above: Performed By: #### L 500.2500, L100.0100 ####[facility] [address] [place], [address] IG% 0.500 Normal 0.0-0.9 [facility] Comment on above: Result Comment: IG% - Immature Granulocytes (promyelocytes, myelocytes andmetamyelocytes) > 1% indicates that a LEFT SHIFT is Present. Performed By: #### L 500.2500, L100.0100 ####[facility] [address] [place], [address] Lymphocytes/100 WBC (Bld) 14.8 % Low 19-41 [facility] Comment on above: Performed By: #### L 500.2500, L100.0100 ####[facility] [address] [place], [address] MCH (RBC) [Entitic mass] 30.6 pg Normal 27.0-32.0 [facility] Comment on above: Performed By: #### L 500.2500, L100.0100 ####[facility] [address] [place], [address] MCHC (RBC) [Mass/Vol] 35.0 g/dL Normal 32-36 [facility] Comment on above: Performed By: #### L 500.2500, L100.0100 ####[facility] [address] [place], [address] MCV (RBC) [Entitic vol] 87.4 fL Normal 80-94 [facility] Comment on above: Performed By: #### L 500.2500, L100.0100 ####[facility] [address] [place], [address] Monocytes/100 WBC (Bld) 12.5 % High 0-10 [facility] Comment on above: Performed By: #### L 500.2500, L100.0100 ####[facility] [address] [place], [address] Neutrophils/100 WBC (Bld) 70.4 % High 47-70 [facility] Comment on above: Performed By: #### L 500.2500, L100.0100 ####[facility] [address] [place], [address] Nucleated RBC (Bld) [#/Vol] 0 10*3/uL Normal 0-5 [facility] Comment on above: Performed By: #### L 500.2500, L100.0100 ####[facility] [address] [place], [address] Platelet mean volume (Bld) [Entitic vol] 9.3 fL Normal 6.2-12.0 [facility] Comment on above: Performed By: #### L 500.2500, L100.0100 ####[facility] [address] [place], [address] Platelets (Bld) [#/Vol] 285 10*3/uL Normal 150-450 [facility] Comment on above: Performed By: #### L 500.2500, L100.0100 ####[facility] [address] [place], [address] RBC (Bld) [#/Vol] 3.89 10*6/uL Low 4.6-6.2 [facility] Comment on above: Performed By: #### L 500.2500, L100.0100 ####[facility] [address] [place], [address] RDW SD 39.5 fl Normal 35.1-43.9 [facility] Comment on above: Performed By: #### L 500.2500, L100.0100 ####[facility] [address] [place], [place], [address] WBC (Bld) [#/Vol] 6.2 10*3/uL Normal 4.4-11.0 [facility] Comment on above: Performed By: #### L 500.2500, L100.0100 ####[facility] [address] [place], [address] Carbon dioxide, total [Moles /volume] in Central venous bloodOrdered By: Stevie Harrington on 11-07-2024 CO2 [Moles/Vol] 18.1 mmol/L Low 21.0-32.0 [facility] Chloride assayOrdered By: Brant Harrington on 11-07-2024 Chloride [Moles/Vol] 96 mmol/L Low 98-108 [facility] Electrocardiogram reportOrde red By: Adrian Flores on 11-07-2024 EKG study [facility] [address] [place] [address] 12 Lead EKG 11/07/24 0553 MR#: [id number] Acct: [id number] Name: JARED RAYMOND Rep #:[id number] : 1945 79 From: Adrian Flores MD [...] was found Confirmed by ADRIAN FLORES MD ([id number]), assistant production editor ELIZ LOPEZ ([id number]) on 11/07/2024 1:45:42 PM Referred By: Confirmed By: ADRIAN FLORES MD 11/07/24 1345 Date _ Adrian Flores MD CC: TRACK WALKER-C Mariela Olson; Dr. Steven Ann MD; Dr. Stevie Harrington, DO ~ Signed [facility] Work Phone: Eosinophil percentageOrdered By: Stevie Harrington on 11-07-2024 Eosinophils/100 WBC (Bld) 1.3 % 0-5 [facility] Erythrocyte distribution wid th (RBC) [Ratio]Ordered By: Stevie Harrington on 11-07-2024 Erythrocyte distribution width (RBC) [Entitic vol] 39.5 fL 35.1-43.9 [facility] Erythrocyte distribution wid th ratioOrdered By: Stevie Harrington on 11-07-2024 Erythrocyte distribution width (RBC) [Ratio] 12.3 % 11.6-14.6 [facility] Erythrocyte distribution wid th standard deviationOrdered By: Stevie Harrington on 11-07-2024 Erythrocyte distribution width (RBC) [Ratio] 39.5 fl 35.1-43.9 [facility] Estimation of creatinine dunia aranceOrdered By: Stevie Harrington on 11-07-2024 Estimated Creatinine Clearance Calc 54.00 ml/min 50-250 [facility] GFR/1.73 sq M.predicted gregg g non-blacks MDRD (S/P/Bld) [Vol rate/Area]Ordered By: Stevie Harrington on 11-07-2024 Estimated GFR (MDRD) Non-Af Amer 74 >60 [facility] Comment on above: mL/min/1.73m2 CKD-EP I Creatinine Equation (2020) Glomerular filtration rate ( GFR) estimation/1.73 sq m using serum, plasma, or whole bOrdered By: Stevie Harrington on 11-07-2024 GFR/1.73 sq M.predicted among non-blacks MDRD (S/P/Bld) [Vol rate/Area] 74 mL/min/{1.73_m2} >60 [facility] Comment on above: mL/min/1.73m2 CKD-EP I Creatinine Equation (2020) Hematocrit Auto (Bld) [Volum e fraction]Ordered By: Stevie Harrington on 11-07-2024 Hematocrit (Bld) [Volume fraction] 34.0 % Low 40-54 [facility] Hemoglobin measurementOrdere d By: Stevie Harrington on 11-07-2024 Hemoglobin (Bld) [Mass/Vol] 11.9 g/dL Low 13.0-16.5 [facility] Immature granulocytes/100 WB C Auto (Bld)Ordered By: Stevie Harrington on 11-07-2024 Immature granulocytes/100 WBC (Bld) 0.500 % 0.0-0.9 [facility] Comment on above: IG% - Immature Granu locytes (promyelocytes, myelocytes and metamyelocytes) > 1% indicates that a LEFT SHIFT is Present. Lymphocytes Auto (Unsp spec) [#/Vol]Ordered By: Stevie Harrington on 11-07-2024 Lymphocytes (Bld) [#/Vol] 0.91 10*3/uL 0.83-4.51 [facility] Lymphocytes/100 WBC Auto (Un sp spec)Ordered By: Stevie Harrington on 11-07-2024 Lymphocytes/100 WBC (Bld) 14.8 % Low 19-41 [facility] MCV (mean corpuscular volume ) determinationOrdered By: Stevie Harrington on 11-07-2024 MCV (RBC) [Entitic vol] 87.4 fL 80-94 [facility] Mean corpuscular hemoglobin (MCH) determinationOrdered By: Stevie Harrington on 11-07-2024 MCH (RBC) [Entitic mass] 30.6 pg 27.0-32.0 [facility] Mean corpuscular hemoglobin concentration (MCHC) determinationOrdered By: Stevie Harrington on 11-07-2024 MCHC (RBC) [Mass/Vol] 35.0 g/dL 32-36 [facility] Mean platelet volume determi nationOrdered By: Stevie Harrington on 11-07-2024 Platelet mean volume (Bld) [Entitic vol] 9.3 fL 6.2-12.0 [facility] Monocyte percentageOrdered B y: Stevie Harrington on 11-07-2024 Monocytes/100 WBC (Bld) 12.5 % High 0-10 [facility] Neutrophil percentageOrdered By: Stevie Harrington on 11-07-2024 Neutrophils/100 WBC (Bld) 70.4 % High 47-70 [facility] Nucleated red blood cell per centageOrdered By: Stevie Harrington on 11-07-2024 Nucleated RBC/100 WBC (Bld) [Ratio] 0 % 0-5 [facility] Platelet countOrdered By: Brant Harrington on 11-07-2024 Platelets (Bld) [#/Vol] 285 10*3/uL 150-450 [facility] Potassium (Unsp spec) [Mass/ Vol]Ordered By: Stevie Harrington on 11-07-2024 Potassium [Moles/Vol] 3.8 mmol/L 3.3-5.1 [facility] Potassium measurement (mass/ volume)Ordered By: Stevie Harrington on 11-07-2024 Potassium (Unsp spec) [Mass/Vol] 3.8 mmol/L 3.3-5.1 [facility] RBC Auto (Bld) [#/Vol]Ordere d By: Stevie Harrington on 11-07-2024 RBC (Bld) [#/Vol] 3.89 10*6/uL Low 4.6-6.2 [facility] Serum creatinine measurement (mass/volume)Ordered By: Stevie Harrington on 11-07-2024 Creatinine [Mass/Vol] 1.02 mg/dL 0.70-1.20 [facility] Serum glucose measurement (m ass/volume)Ordered By: Stevie Harrington on 11-07-2024 Glucose [Mass/Vol] 92 mg/dL 70-99 [facility] Serum or plasma calcium shagufta urement (mass/volume)Ordered By: Stevie Harrington on 11-07-2024 Calcium [Mass/Vol] 8.6 mg/dL 7.6-11.0 [facility] Serum or plasma urea nitroge n measurement (mass/volume)Ordered By: Stevie Harrington on 11-07-2024 Urea nitrogen [Mass/Vol] 16 mg/dL 4-19 [facility] Sodium levelOrdered By: Stevie Harrington on 11-07-2024 Sodium [Moles/Vol] 128 mmol/L Low 133-145 [facility] White blood cell (WBC) count Ordered By: Stevie Harrington on 11-07-2024 WBC (Bld) [#/Vol] 6.2 10*3/uL 4.4-11.0 [facility] Bilirubin, totalOrdered By: Darrel Sanders on 11-06-2024 Bilirubin [Mass/Vol] 0.64 mg/dL 0.00-1.30 [facility] C. difficile DNA BLESSING+probe Q l (Unsp spec)Ordered By: Darrel Sanders on 11-06-2024 Clostridioides difficile (PCR) [facility] CBC W/Diff, Automatedon Absolute Lymph 0.59 X10 3/uL Low 0.83-4.51 [facility] Comment on above: Performed By: #### L 100.0100 ####[facility] [address] [place], [address] Absolute Neut 5.0 X10 3/uL Normal 2.0-7.7 [facility] Comment on above: Performed By: #### L 100.0100 ####[facility] [address] [place], [address] Basophils/100 WBC (Bld) 0.3 % Normal 0-1 [facility] Comment on above: Performed By: #### L 100.0100 ####[facility] [address] [place], [address] Eosinophils/100 WBC (Bld) 0.3 % Normal 0-5 [facility] Comment on above: Performed By: #### L 100.0100 ####[facility] [address] [place], [address] Erythrocyte distribution width (RBC) [Ratio] 12.3 % Normal 11.6-14.6 [facility] Comment on above: Performed By: #### L 100.0100 ####[facility] [address] [place], [address] Hematocrit (Bld) [Volume fraction] 33.9 % Low 40-54 [facility] Comment on above: Performed By: #### L 100.0100 ####[facility] [address] [place], [address] Hemoglobin (Bld) [Mass/Vol] 11.9 g/dL Low 13.0-16.5 [facility] Comment on above: Performed By: #### L 100.0100 ####[facility] [address] [place], [address] IG% 0.300 Normal 0.0-0.9 [facility] Comment on above: Result Comment: IG% - Immature Granulocytes (promyelocytes, myelocytes andmetamyelocytes) > 1% indicates that a LEFT SHIFT is Present. Performed By: #### L 100.0100 ####[facility] [address] [place], [address] Lymphocytes/100 WBC (Bld) 9.1 % Low 19-41 [facility] Comment on above: Performed By: #### L 100.0100 ####[facility] [address] [place], [address] MCH (RBC) [Entitic mass] 31.1 pg Normal 27.0-32.0 [facility] Comment on above: Performed By: #### L 100.0100 ####[facility] [address] [place], [address] MCHC (RBC) [Mass/Vol] 35.1 g/dL Normal 32-36 [facility] Comment on above: Performed By: #### L 100.0100 ####[facility] [address] [place], [address] MCV (RBC) [Entitic vol] 88.5 fL Normal 80-94 [facility] Comment on above: Performed By: #### L 100.0100 ####[facility] [address] [place], [address] Monocytes/100 WBC (Bld) 11.9 % High 0-10 [facility] Comment on above: Performed By: #### L 100.0100 ####[facility] [address] [place], [address] Neutrophils/100 WBC (Bld) 78.1 % High 47-70 [facility] Comment on above: Performed By: #### L 100.0100 ####[facility] [address] [place], [address] Nucleated RBC (Bld) [#/Vol] 0 10*3/uL Normal 0-5 [facility] Comment on above: Performed By: #### L 100.0100 ####[facility] [address] [place], [address] Platelet mean volume (Bld) [Entitic vol] 9.1 fL Normal 6.2-12.0 [facility] Comment on above: Performed By: #### L 100.0100 ####[facility] [address] [place], [address] Platelets (Bld) [#/Vol] 290 10*3/uL Normal 150-450 [facility] Comment on above: Performed By: #### L 100.0100 ####[facility] [address] [place], [address] RBC (Bld) [#/Vol] 3.83 10*6/uL Low 4.6-6.2 [facility] Comment on above: Performed By: #### L 100.0100 ####[facility] [address] [place], [address] RDW SD 39.8 fl Normal 35.1-43.9 [facility] Comment on above: Performed By: #### L 100.0100 ####[facility] [address] [place], [address] WBC (Bld) [#/Vol] 6.5 10*3/uL Normal 4.4-11.0 [facility] Comment on above: Performed By: #### L 100.0100 ####[facility] [address] [place], [address] Absolute Lymph 1.08 X10 3/uL Normal 0.83-4.51 [facility] Comment on above: Performed By: #### L 501.2300, L100.0100, L500.4050 ####[facility] [address] [place], [address] Absolute Neut 5.9 X10 3/uL Normal 2.0-7.7 [facility] Comment on above: Performed By: #### L 501.2300, L100.0100, L500.4050 ####[facility] [address] [place], [address] Basophils/100 WBC (Bld) 0.3 % Normal 0-1 [facility] Comment on above: Performed By: #### L 501.2300, L100.0100, L500.4050 ####[facility] [address] [place], [address] Eosinophils/100 WBC (Bld) 1.4 % Normal 0-5 [facility] Comment on above: Performed By: #### L 501.2300, L100.0100, L500.4050 ####[facility] [address] [place], [address] Erythrocyte distribution width (RBC) [Ratio] 12.2 % Normal 11.6-14.6 [facility] Comment on above: Performed By: #### L 501.2300, L100.0100, L500.4050 ####[facility] [address] [place], [address] Hematocrit (Bld) [Volume fraction] 35.2 % Low 40-54 [facility] Comment on above: Performed By: #### L 501.2300, L100.0100, L500.4050 ####[facility] [address] [place], [address] Hemoglobin (Bld) [Mass/Vol] 12.3 g/dL Low 13.0-16.5 [facility] Comment on above: Performed By: #### L 501.2300, L100.0100, L500.4050 ####[facility] [address] [place], [address] IG% 0.300 Normal 0.0-0.9 [facility] Comment on above: Result Comment: IG% - Immature Granulocytes (promyelocytes, myelocytes andmetamyelocytes) > 1% indicates that a LEFT SHIFT is Present. Performed By: #### L 501.2300, L100.0100, L500.4050 ####[facility] [address] [place], [address] Lymphocytes/100 WBC (Bld) 13.7 % Low 19-41 [facility] Comment on above: Performed By: #### L 501.2300, L100.0100, L500.4050 ####[facility] [address] [place], [address] MCH (RBC) [Entitic mass] 30.4 pg Normal 27.0-32.0 [facility] Comment on above: Performed By: #### L 501.2300, L100.0100, L500.4050 ####[facility] [address] [place], [address] MCHC (RBC) [Mass/Vol] 34.9 g/dL Normal 32-36 [facility] Comment on above: Performed By: #### L 501.2300, L100.0100, L500.4050 ####[facility] [address] [place], [address] MCV (RBC) [Entitic vol] 87.1 fL Normal 80-94 [facility] Comment on above: Performed By: #### L 501.2300, L100.0100, L500.4050 ####[facility] [address] [place], [address] Monocytes/100 WBC (Bld) 9.8 % Normal 0-10 [facility] Comment on above: Performed By: #### L 501.2300, L100.0100, L500.4050 ####[facility] [address] [place], [address] Neutrophils/100 WBC (Bld) 74.5 % High 47-70 [facility] Comment on above: Performed By: #### L 501.2300, L100.0100, L500.4050 ####[facility] [address] [place], [address] Nucleated RBC (Bld) [#/Vol] 0 10*3/uL Normal 0-5 [facility] Comment on above: Performed By: #### L 501.2300, L100.0100, L500.4050 ####[facility] [address] [place], [address] Platelet mean volume (Bld) [Entitic vol] 8.7 fL Normal 6.2-12.0 [facility] Comment on above: Performed By: #### L 501.2300, L100.0100, L500.4050 ####[facility] [address] [place], [address] Platelets (Bld) [#/Vol] 303 10*3/uL Normal 150-450 [facility] Comment on above: Performed By: #### L 501.2300, L100.0100, L500.4050 ####[facility] [address] [place], [address] RBC (Bld) [#/Vol] 4.04 10*6/uL Low 4.6-6.2 [facility] Comment on above: Performed By: #### L 501.2300, L100.0100, L500.4050 ####[facility] [address] [place], [address] RDW SD 39.1 fl Normal 35.1-43.9 [facility] Comment on above: Performed By: #### L 501.2300, L100.0100, L500.4050 ####[facility] [address] [place], [address] WBC (Bld) [#/Vol] 7.9 10*3/uL Normal 4.4-11.0 [facility] Comment on above: Performed By: #### L 501.2300, L100.0100, L500.4050 ####[facility] [address] [place], [address] CDIFF (PCR)on 11-06-2024 CDIFF Is the patient recei ving laxatives? N New/unexplained onset of 3 or more stools in past 24 hrs? Y 027 027 NAP1-B1 Presumptive Negative *for epidemiolologic???use C. Diff PCR Negative- No toxigenic C. Diff Detected Normal [facility] Comment on above: Performed By: #### M 100.0605, M100.6796, M100.637, M600.5000 ####[facility] [address] [place], [address] Calculated total iron bindin g capacityOrdered By: Darrel Sanders on 11-06-2024 Total Iron Binding Capacity 270 ug/dL 250-450 [facility] Clostridium difficile detect ion by polymerase chain reactionOrdered By: Darrel Sanders on 11-06-2024 C. difficile DNA BLESSING+probe Ql (Unsp spec) [facility] Colonoscopy Reporton 025 Colonoscopy Report Normal [facility] Comprehensive Metabolic Prof ilon 11-06-2024 Albumin [Mass/Vol] 3.9 g/dL Normal 3.4-4.8 [facility] Comment on above: Performed By: #### L 501.2300, L100.0100, L500.4050 ####[facility] [address] [place], [address] Albumin/Globulin [Mass ratio] 1.4 {ratio} Normal 0.9-2.4 [facility] Comment on above: Performed By: #### L 501.2300, L100.0100, L500.4050 ####[facility] [address] [place], [address] ALK PHOS 101 U/L Normal 40-129 [facility] Comment on above: Performed By: #### L 501.2300, L100.0100, L500.4050 ####[facility] [address] [place], [address] ALT [Catalytic activity/Vol] 14 U/L Normal <=46 [facility] Comment on above: Performed By: #### L 501.2300, L100.0100, L500.4050 ####[facility] [address] [place], [address] AST [Catalytic activity/Vol] 22 U/L Normal <=37 [facility] Comment on above: Performed By: #### L 501.2300, L100.0100, L500.4050 ####[facility] [address] [place], [address] Bilirubin [Mass/Vol] 0.64 mg/dL Normal 0.00-1.30 [facility] Comment on above: Performed By: #### L 501.2300, L100.0100, L500.4050 ####[facility] [address] [place], [address] BUN/CRE 14.4 RATIO Normal 10-20 [facility] Comment on above: Performed By: #### L 501.2300, L100.0100, L500.4050 ####[facility] [address] [place], [address] Calcium [Mass/Vol] 8.8 mg/dL Normal 7.6-11.0 [facility] Comment on above: Performed By: #### L 501.2300, L100.0100, L500.4050 ####[facility] [address] [place], [address] Chloride [Moles/Vol] 96 mmol/L Low 98-108 [facility] Comment on above: Performed By: #### L 501.2300, L100.0100, L500.4050 ####[facility] [address] [place], [address] CO2 [Moles/Vol] 21.7 mmol/L Normal 21.0-32.0 [facility] Comment on above: Performed By: #### L 501.2300, L100.0100, L500.4050 ####[facility] [address] [place], [address] Creatinine [Mass/Vol] 0.97 mg/dL Normal 0.70-1.20 [facility] Comment on above: Performed By: #### L 501.2300, L100.0100, L500.4050 ####[facility] [address] [place], [address] ECRCL 56.79 ml/min Normal 50-250 [facility] Comment on above: Performed By: #### L 501.2300, L100.0100, L500.4050 ####[facility] [address] [place], [address] GAP 12 Normal 5-15 [facility] Comment on above: Performed By: #### L 501.2300, L100.0100, L500.4050 ####[facility] [address] [place], [address] GFR/1.73 sq M.predicted among non-blacks MDRD (S/P/Bld) [Vol rate/Area] 79 mL/min/{1.73_m2} Normal >60 [facility] Comment on above: Result Comment: mL/m in/1.73m2 CKD-EPI Creatinine Equation (2020) Performed By: #### L 501.2300, L100.0100, L500.4050 ####[facility] [address] [place], [address] Globulin (S) [Mass/Vol] 2.8 g/dL Normal 2.2-4.2 [facility] Comment on above: Performed By: #### L 501.2300, L100.0100, L500.4050 ####[facility] [address] [place], [address] Glucose [Mass/Vol] 99 mg/dL Normal 70-99 [facility] Comment on above: Performed By: #### L 501.2300, L100.0100, L500.4050 ####[facility] [address] [place], [address] Potassium [Moles/Vol] 4.1 mmol/L Normal 3.3-5.1 [facility] Comment on above: Performed By: #### L 501.2300, L100.0100, L500.4050 ####[facility] [address] [place], [address] Sodium [Moles/Vol] 130 mmol/L Low 133-145 [facility] Comment on above: Performed By: #### L 501.2300, L100.0100, L500.4050 ####[facility] [address] [place], [address] T PROT 6.7 g/dL Normal 5.9-8.4 [facility] Comment on above: Performed By: #### L 501.2300, L100.0100, L500.4050 ####[facility] [address] [place], [address] Urea nitrogen [Mass/Vol] 14 mg/dL Normal 4-19 [facility] Comment on above: Performed By: #### L 501.2300, L100.0100, L500.4050 ####[facility] [address] [place], [address] ENTERIC PATHOGEN PANEL STOOL on 11-06-2024 EP PANEL Normal [facility] Comment on above: Performed By: #### M 100.0605, M100.6796, M100.637, M600.5000 ####[facility] [address] [place], [address] Emergency Department Summary on 11-06-2024 Emergency Department Summary Normal [facility] Ferritinon 11-06-2024 Ferritin [Mass/Vol] 138 ng/mL Normal 37-417 [facility] Comment on above: Performed By: #### L 501.9520, L503.6550, L503.0106, L503.6030, L501.7300 ####[facility] [address] [place], [address] H AND P Exam - Hospitaliston 11-06-2024 H&P Exam - Hospitalist Normal [facility] Iron (Unsp spec) [Mass/Mass] Ordered By: Darrel Sanders on 11-06-2024 Iron [Mass/Vol] 50 ug/dL Low 65-175 [facility] Iron measurement (mass/mass) Ordered By: Darrel Sanders on 11-06-2024 Iron (Unsp spec) [Mass/Mass] 50 ug/dL Low 65-175 [facility] Iron saturation [Mass fracti on]Ordered By: Darrel Sanders on 11-06-2024 Iron Saturation 19.0 % 9-55 [facility] Iron+Iron Binding Capacityon 11-06-2024 Iron [Mass/Vol] 50 ug/dL Low 65-175 [facility] Comment on above: Performed By: #### L 501.9520, L503.6550, L503.0106, L503.6030, L501.7300 ####[facility] [address] [place], [address] IRON SATURATION 19.0 Normal 9-55 [facility] Comment on above: Performed By: #### L 501.9520, L503.6550, L503.0106, L503.6030, L501.7300 ####[facility] [address] [place], [address] TIBC 270 ug/dL Normal 250-450 [facility] Comment on above: Performed By: #### L 501.9520, L503.6550, L503.0106, L503.6030, L501.7300 ####[facility] [address] [place], [address] UIBC 220 ug/dL Low 228-428 [facility] Comment on above: Performed By: #### L 501.9520, L503.6550, L503.0106, L503.6030, L501.7300 ####[facility] [address] [place], [address] L499.0042on 11-06-2024 Trop T High Sen 23 ng/L High <=22 [facility] Comment on above: Performed By: #### L 499.0042 ####[facility] [address] [place], [address] L499.0043on 11-06-2024 Trop T High Sen 19 ng/L Normal <=22 [facility] Comment on above: Performed By: #### L 499.0043 ####[facility] [address] [place], [address] L501.4021on 11-06-2024 Trop T High Sen 18 ng/L Normal <=22 [facility] Comment on above: Performed By: #### L 501.4021 ####[facility] [address] [place], [address] Laboratory - Chemistry and C hemistry - challengeOrdered By: Darrel Sanders on 11-06-2024 AST [Catalytic activity/Vol] 22 U/L <38 [facility] Lactoferrin IA Ql (Stl)Order ed By: Darrel Sanders on 11-06-2024 Stool Lactoferrin [facility] MR/CON.PCM.GIon 11-06-2024 MR/CON.PCM.GI Normal [facility] MR/POSTOP.ANEon 11-06-2024 MR/POSTOP.ANE Normal [facility] MR/[id number] 11-06-2024 MR/POSTOPAN2 Normal [facility] Magnesiumon 11-06-2024 Magnesium [Mass/Vol] 2.3 mg/dL High 1.5-2.2 [facility] Comment on above: Performed By: #### L 501.5200 ####[facility] [address] [facility] [place], [address] No Panel InformationOrdered By: Darrel Sanders on 11-06-2024 Unsaturated Iron Binding Capacity 220 ug/dL Low 228-428 [facility] 22 U/L <38 [facility] 220 ug/dL Low 228-428 [facility] Osmolality (U) [Osmolality]O rdered By: Darrel Sanders on 11-06-2024 Urine Osmolality 363 mOsm/KG >50 [facility] Comment on above: Normal Urine Referen ce Ranges Random: 50 - 1200 mOsm/kg H20 depending on fluid intake Random: >850 mOsm/kg after 12 hour fluid restriction 24 hour: ~300 - 900 mOsm/kg H2O Osmolality urOrdered By: Esdras Sanders on 11-06-2024 Osmolality (U) [Osmolality] 363 mOsm/KG >50 [facility] Comment on above: Normal Urine Referen ce Ranges Random: 50 - 1200 mOsm/kg H20 depending on fluid intake Random: >850 mOsm/kg after 12 hour fluid restriction 24 hour: ~300 - 900 mOsm/kg H2O Osmolality, Serumon 11-07-19 25 OSMOLALITY,SER 279 mOsm/KG Low 280-301 [facility] Comment on above: Performed By: #### L 501.9520, L503.6550, L503.0106, L503.6030, L501.7300 ####[facility] [address] [place], [address] Osmolality, Urineon 11-07-19 25 OSMOLALITY,UR 363 mOsm/KG Normal [facility] Comment on above: Result Comment: Norm al Urine Reference Ranges Random: 50 - 1200 mOsm/kg H20 depending on fluid intake Random: >850 mOsm/kg after 12 hour fluid restriction 24 hour: 300 - 900 mOsm/kg H2O Performed By: #### L 501.7400 ####[facility] [address] [place], [place], [address] Osmolality, serumOrdered By: Darrel Sanders on 11-06-2024 Serum Osmolality 279 mOsm/KG Low 280-301 [facility] Ova and parasitesOrdered By: Darrel Sanders on 11-06-2024 Ova and Parasites [facility] Phosphoruson 11-06-2024 Phosphate [Mass/Vol] 2.6 mg/dL Low 2.7-4.5 [facility] Comment on above: Performed By: #### L 501.2300, L100.0100, L500.4050 ####[facility] [address] [place], [place], [address] Serum globulin measurementOr dered By: Darrel Sanders on 11-06-2024 Globulin (S) [Mass/Vol] 2.8 g/dL 2.2-4.2 [facility] Serum or plasma alanine carrion otransferase (ALT) measurementOrdered By: Darrel Sanders on 11-06-2024 ALT [Catalytic activity/Vol] 14 U/L <47 [facility] Serum or plasma albumin shagufta urement (mass/volume)Ordered By: Darrel Sanders on 11-06-2024 Albumin [Mass/Vol] 3.9 g/dL 3.4-4.8 [facility] Serum or plasma albumin/glob ulin mass ratioOrdered By: Darrel Sanders on 11-06-2024 Albumin/Globulin [Mass ratio] 1.4 {ratio} 0.9-2.4 [facility] Serum or plasma alkaline airam sphatase measurementOrdered By: Darrel Sanders on 11-06-2024 ALP [Catalytic activity/Vol] 101 U/L 40-129 [facility] Serum or plasma ferritin francy surement (mass/volume)Ordered By: Darrel Sanders on 11-06-2024 Ferritin [Mass/Vol] 138 ng/mL 37-417 [facility] Serum or plasma iron saturat ion measurement (mass fraction)Ordered By: Darrel Sanders on 11-06-2024 Iron saturation [Mass fraction] 19.0 % 9-55 [facility] Serum phosphorus measurement Ordered By: Darrel Sanders on 11-06-2024 Phosphorus Level 2.6 mg/dL Low 2.7-4.5 [facility] Stool Lactoferrin/WBCon 04-0 WBCST Is the patient recei ving laxatives? N New/unexplained onset of 3 or more stools in past 24 hrs? Y Normal Reference Range = Negative Fecal WBC Lactoferrin A Positive: Fecal WBC Lactoferrin present A Normal [facility] Comment on above: Performed By: #### M 100.0605, M100.6796, M100.637, M600.5000 ####[facility] [address] [place], [address] Stool Occult Blood iFOBon STOB Positive Normal [facility] Comment on above: Performed By: #### B TS, L503.6005, L500.2500, M100.7900, L300.4310, L100.0100, L300.3900 ####[facility] [address] [place], [address] Stool enteric pathogen panel by probe and target amplification methodOrdered By: Darrel Sanders on 11-06-2024 Enteric Bacteriology [facility] Stool lactoferrin detection by immunoassayOrdered By: Darrel Sanders on 11-06-2024 Lactoferrin IA Ql (Stl) [facility] TSH DL <= 0.005 mIU/L QnOrde red By: Darrel Sanders on 11-06-2024 Thyroid Stimulating Hormone (TSH) 1.900 uIU/mL 0.300-4.200 [facility] TSH Qn 1.900 uIU/mL 0.300-4.200 [facility] Thyroid Stim Hormone (TSH)on 11-06-2024 TSH 1.900 uIU/mL Normal 0.300-4.200 [facility] Comment on above: Performed By: #### L 501.9520, L503.6550, L503.0106, L503.6030, L501.7300 ####[facility] [address] [place], [address] Total proteinOrdered By: Esdras Sanders on 11-06-2024 Protein [Mass/Vol] 6.7 g/dL 5.9-8.4 [facility] Troponin T.cardiac High sens itivity method [Mass/Vol]Ordered By: Darrel Sanders on 11-06-2024 Troponin T High Sensitivity 4 Hour 19 ng/L <22 [facility] Troponin T High Sensitivity 2 Hour 23 ng/L High <22 [facility] Troponin T High Sensitivity 18 ng/L <22 [facility] Troponin T.cardiac [Mass/vol ume] in Serum or Plasma by High sensitivity methodOrdered By: Darrel Sanders on 11-06-2024 Troponin T.cardiac High sensitivity method [Mass/Vol] 19 ng/L <22 [facility] Troponin T.cardiac High sensitivity method [Mass/Vol] 23 ng/L High <22 [facility] Troponin T.cardiac High sensitivity method [Mass/Vol] 18 ng/L <22 [facility] Vitamin B12on 11-06-2024 Cobalamin (Vitamin B12) [Mass/Vol] 790 pg/mL Normal 180-914 [facility] Comment on above: Performed By: #### L 501.9520, L503.6550, L503.0106, L503.6030, L501.7300 ####[facility] [address] [place], [address] Vitamin B12 ser/plasOrdered By: Darrel Sanders on 11-06-2024 Cobalamin (Vitamin B12) [Mass/Vol] 790 pg/mL 180-914 [facility] Absolute neutrophil countOrd ered By: Harrison Linares on 11-05-2024 Neutrophils (Bld) [#/Vol] 6.9 10*3/uL 2.0-7.7 [facility] Activated partial thrombopla stin time (aPTT) in platelet poor plasma by coagulation aOrdered By: Harrison Linares on 11-05-2024 aPTT Coag (PPP) [Time] 22.1 s Low 24.1-36.2 [facility] Anion gap in Serum or Plasma Ordered By: Harrison Linares on 11-05-2024 Anion gap [Moles/Vol] 12 mmol/L 12-13 [facility] BUN/creatinine ratioOrdered By: Harrison Linares on 11-05-2024 Urea nitrogen/Creatinine [Mass ratio] 15.4 mg/mg 05-20 [facility] Basic Metabolic Profile (BMP )on 11-05-2024 BUN/CRE 15.4 RATIO Normal 05-20 [facility] Comment on above: Performed By: #### B TS, L503.6005, L500.2500, M100.7900, L300.4310, L100.0100, L300.3900 ####[facility] [address] [place], [address] Calcium [Mass/Vol] 9.0 mg/dL Normal 7.6-11.0 [facility] Comment on above: Performed By: #### B TS, L503.6005, L500.2500, M100.7900, L300.4310, L100.0100, L300.3900 ####[facility] [address] [place], [address] Chloride [Moles/Vol] 90 mmol/L Low 98-108 [facility] Comment on above: Performed By: #### B TS, L503.6005, L500.2500, M100.7900, L300.4310, L100.0100, L300.3900 ####[facility] [address] [place], [address] CO2 [Moles/Vol] 23.8 mmol/L Normal 21.0-32.0 [facility] Comment on above: Performed By: #### B TS, L503.6005, L500.2500, M100.7900, L300.4310, L100.0100, L300.3900 ####[facility] [address] [place], [address] Creatinine [Mass/Vol] 0.92 mg/dL Normal 0.70-1.20 [facility] Comment on above: Performed By: #### B TS, L503.6005, L500.2500, M100.7900, L300.4310, L100.0100, L300.3900 ####[facility] [address] [place], [address] ECRCL 59.87 ml/min Normal 50-250 [facility] Comment on above: Performed By: #### B TS, L503.6005, L500.2500, M100.7900, L300.4310, L100.0100, L300.3900 ####[facility] [address] [place], [address] GAP 12 Normal 5-15 [facility] Comment on above: Performed By: #### B TS, L503.6005, L500.2500, M100.7900, L300.4310, L100.0100, L300.3900 ####[facility] [address] [place], [address] GFR/1.73 sq M.predicted among non-blacks MDRD (S/P/Bld) [Vol rate/Area] 84 mL/min/{1.73_m2} Normal >60 [facility] Comment on above: Result Comment: mL/m in/1.73m2 CKD-EPI Creatinine Equation (2020) Performed By: #### B TS, L503.6005, L500.2500, M100.7900, L300.4310, L100.0100, L300.3900 ####[facility] [address] [place], [address] Glucose [Mass/Vol] 110 mg/dL High 70-99 [facility] Comment on above: Performed By: #### B TS, L503.6005, L500.2500, M100.7900, L300.4310, L100.0100, L300.3900 ####[facility] [address] [place], [address] Potassium [Moles/Vol] 4.0 mmol/L Normal 3.3-5.1 [facility] Comment on above: Performed By: #### B TS, L503.6005, L500.2500, M100.7900, L300.4310, L100.0100, L300.3900 ####[facility] [address] [place], [address] Sodium [Moles/Vol] 126 mmol/L Low 133-145 [facility] Comment on above: Performed By: #### B TS, L503.6005, L500.2500, M100.7900, L300.4310, L100.0100, L300.3900 ####[facility] [address] [place], [address] Urea nitrogen [Mass/Vol] 14 mg/dL Normal 4-19 [facility] Comment on above: Performed By: #### B TS, L503.6005, L500.2500, M100.7900, L300.4310, L100.0100, L300.3900 ####[facility] [address] [place], [address] Basophil percentageOrdered B y: Harrison Linares on 11-05-2024 Basophils/100 WBC (Bld) 0.2 % 0-1 [facility] CBC W/Diff, Automatedon Absolute Lymph 1.16 X10 3/uL Normal 0.83-4.51 [facility] Comment on above: Order Comment: REDRA W. PREVIOUS SPECIMEN REJECTED DUE TOCLOTTED. 11/05/242304 Quintin R Cardenas. Performed By: #### L 100.0100 ####[facility] [address] [place], [address] Absolute Neut 6.9 X10 3/uL Normal 2.0-7.7 [facility] Comment on above: Order Comment: REDRA W. PREVIOUS SPECIMEN REJECTED DUE TOCLOTTED. 11/05/242304 Quintin R Cardenas. Performed By: #### L 100.0100 ####[facility] [address] [place], [address] Basophils/100 WBC (Bld) 0.2 % Normal 0-1 [facility] Comment on above: Order Comment: REDRA W. PREVIOUS SPECIMEN REJECTED DUE TOCLOTTED. 11/05/242304 Quintin R Cardenas. Performed By: #### L 100.0100 ####[facility] [address] [place], [address] Eosinophils/100 WBC (Bld) 0.6 % Normal 0-5 [facility] Comment on above: Order Comment: REDRA W. PREVIOUS SPECIMEN REJECTED DUE TOCLOTTED. 11/05/242304 Quintin R Cardenas. Performed By: #### L 100.0100 ####[facility] [address] [place], [address] Erythrocyte distribution width (RBC) [Ratio] 12.2 % Normal 11.6-14.6 [facility] Comment on above: Order Comment: REDRA W. PREVIOUS SPECIMEN REJECTED DUE TOCLOTTED. 11/05/242304 Quintin R Cardenas. Performed By: #### L 100.0100 ####[facility] [address] [place], [address] Hematocrit (Bld) [Volume fraction] 32.9 % Low 40-54 [facility] Comment on above: Order Comment: REDRA W. PREVIOUS SPECIMEN REJECTED DUE TOCLOTTED. 11/05/242304 Quintin R Cardenas. Performed By: #### L 100.0100 ####[facility] [address] [place], [address] Hemoglobin (Bld) [Mass/Vol] 11.5 g/dL Low 13.0-16.5 [facility] Comment on above: Order Comment: REDRA W. PREVIOUS SPECIMEN REJECTED DUE TOCLOTTED. 11/05/242304 Quintin R Cardenas. Performed By: #### L 100.0100 ####[facility] [address] [place], [address] IG% 0.600 Normal 0.0-0.9 [facility] Comment on above: Order Comment: REDRA W. PREVIOUS SPECIMEN REJECTED DUE TOCLOTTED. 11/05/242304 Quintin R Cardenas. Result Comment: IG% - Immature Granulocytes (promyelocytes, myelocytes andmetamyelocytes) > 1% indicates that a LEFT SHIFT is Present. Performed By: #### L 100.0100 ####[facility] [address] [place], [address] Lymphocytes/100 WBC (Bld) 12.9 % Low 19-41 [facility] Comment on above: Order Comment: REDRA W. PREVIOUS SPECIMEN REJECTED DUE TOCLOTTED. 11/05/242304 Quintin R Cardenas. Performed By: #### L 100.0100 ####[facility] [address] [place], [address] MCH (RBC) [Entitic mass] 30.5 pg Normal 27.0-32.0 [facility] Comment on above: Order Comment: REDRA W. PREVIOUS SPECIMEN REJECTED DUE TOCLOTTED. 11/05/242304 Quintin R Cardenas. Performed By: #### L 100.0100 ####[facility] [address] [place], [address] MCHC (RBC) [Mass/Vol] 35.0 g/dL Normal 32-36 [facility] Comment on above: Order Comment: REDRA W. PREVIOUS SPECIMEN REJECTED DUE TOCLOTTED. 11/05/242304 Quintin R Cardenas. Performed By: #### L 100.0100 ####[facility] [address] [place], [address] MCV (RBC) [Entitic vol] 87.3 fL Normal 80-94 [facility] Comment on above: Order Comment: REDRA W. PREVIOUS SPECIMEN REJECTED DUE TOCLOTTED. 11/05/242304 Quintin R Cardenas. Performed By: #### L 100.0100 ####[facility] [address] [place], [address] Monocytes/100 WBC (Bld) 8.9 % Normal 0-10 [facility] Comment on above: Order Comment: REDRA W. PREVIOUS SPECIMEN REJECTED DUE TOCLOTTED. 11/05/242304 Quintin R Cardenas. Performed By: #### L 100.0100 ####[facility] [address] [place], [address] Neutrophils/100 WBC (Bld) 76.8 % High 47-70 [facility] Comment on above: Order Comment: REDRA W. PREVIOUS SPECIMEN REJECTED DUE TOCLOTTED. 11/05/242304 Quintin R Cardenas. Performed By: #### L 100.0100 ####[facility] [address] [place], [address] Nucleated RBC (Bld) [#/Vol] 0 10*3/uL Normal 0-5 [facility] Comment on above: Order Comment: REDRA W. PREVIOUS SPECIMEN REJECTED DUE TOCLOTTED. 11/05/242304 Quintin R Cardenas. Performed By: #### L 100.0100 ####[facility] [address] [place], [address] Platelet mean volume (Bld) [Entitic vol] 8.7 fL Normal 6.2-12.0 [facility] Comment on above: Order Comment: REDRA W. PREVIOUS SPECIMEN REJECTED DUE TOCLOTTED. 11/05/242304 Quintin R Cardenas. Performed By: #### L 100.0100 ####[facility] [address] [place], [address] Platelets (Bld) [#/Vol] 274 10*3/uL Normal 150-450 [facility] Comment on above: Order Comment: REDRA W. PREVIOUS SPECIMEN REJECTED DUE TOCLOTTED. 11/05/242304 Quintin R Cardenas. Performed By: #### L 100.0100 ####[facility] [address] [place], [address] RBC (Bld) [#/Vol] 3.77 10*6/uL Low 4.6-6.2 [facility] Comment on above: Order Comment: REDRA W. PREVIOUS SPECIMEN REJECTED DUE TOCLOTTED. 11/05/242304 Quintin R Cardenas. Performed By: #### L 100.0100 ####[facility] [address] [place], [address] RDW SD 39.0 fl Normal 35.1-43.9 [facility] Comment on above: Order Comment: REDRA W. PREVIOUS SPECIMEN REJECTED DUE TOCLOTTED. 11/05/242304 Quintin R Cardenas. Performed By: #### L 100.0100 ####[facility] [address] [place], [address] WBC (Bld) [#/Vol] 9.0 10*3/uL Normal 4.4-11.0 [facility] Comment on above: Order Comment: REDRA W. PREVIOUS SPECIMEN REJECTED DUE TOCLOTTED. 11/05/242304 Quintin R Cardenas. Performed By: #### L 100.0100 ####[facility] [address] [place], [address] Absolute Neut Normal 2.0-7.7 [facility] Comment on above: Result Comment: This specimen has been REJECTED due to Laboratory criteria:Clotted.CARGABRITE has been notified of need of recollection.11/05/242304 Quintin R Cardenas Performed By: #### B TS, L503.6005, L500.2500, M100.7900, L300.4310, L100.0100, L300.3900 ####[facility] [address] [place], [address] HCT Normal 40-54 [facility] Comment on above: Result Comment: This specimen has been REJECTED due to Laboratory criteria:Clotted.CARGABRITE has been notified of need of recollection.11/05/242304 Quintin R Cardenas Performed By: #### B TS, L503.6005, L500.2500, M100.7900, L300.4310, L100.0100, L300.3900 ####[facility] [address] [place], [address] HGB Normal 13.0-16.5 [facility] Comment on above: Result Comment: This specimen has been REJECTED due to Laboratory criteria:Clotted.CARGABRITE has been notified of need of recollection.11/05/242304 Quintin R Cardenas Performed By: #### B TS, L503.6005, L500.2500, M100.7900, L300.4310, L100.0100, L300.3900 ####[facility] [address] [place], [address] MCH Normal 27.0-32.0 [facility] Comment on above: Result Comment: This specimen has been REJECTED due to Laboratory criteria:Clotted.CARGABRITE has been notified of need of recollection.11/05/242304 Quintin R Cardenas Performed By: #### B TS, L503.6005, L500.2500, M100.7900, L300.4310, L100.0100, L300.3900 ####[facility] [address] [place], [address] MCHC Normal 32-36 [facility] Comment on above: Result Comment: This specimen has been REJECTED due to Laboratory criteria:Clotted.CARGABRITE has been notified of need of recollection.11/05/242304 Quintin R Cardenas Performed By: #### B TS, L503.6005, L500.2500, M100.7900, L300.4310, L100.0100, L300.3900 ####[facility] [address] [place], [address] MCV Normal 80-94 [facility] Comment on above: Result Comment: This specimen has been REJECTED due to Laboratory criteria:Clotted.CARGABRITE has been notified of need of recollection.11/05/242304 Quintin R Cardenas Performed By: #### Marco TS, L503.6005, L500.2500, M100.7900, L300.4310, L100.0100, L300.3900 ####[facility] [address] [place], [address] NEUT% Normal 47-70 [facility] Comment on above: Result Comment: This specimen has been REJECTED due to Laboratory criteria:Clotted.CARGABRITE has been notified of need of recollection.11/05/242304 Quintin R Cardenas Performed By: #### B TS, L503.6005, L500.2500, M100.7900, L300.4310, L100.0100, L300.3900 ####[facility] [address] [place], [address] PLT Normal 150-450 [facility] Comment on above: Result Comment: This specimen has been REJECTED due to Laboratory criteria:Clotted.CARGABRITE has been notified of need of recollection.11/05/242304 Quintin R Cardenas Performed By: #### B TS, L503.6005, L500.2500, M100.7900, L300.4310, L100.0100, L300.3900 ####[facility] [address] [place], [place], [address] RBC Normal 4.6-6.2 [facility] Comment on above: Result Comment: This specimen has been REJECTED due to Laboratory criteria:Clotted.CARGABRITE has been notified of need of recollection.11/05/242304 Quintin R Cardenas Performed By: #### B TS, L503.6005, L500.2500, M100.7900, L300.4310, L100.0100, L300.3900 ####[facility] [address] [place], [place], [address] RDW CV Normal 11.6-14.6 [facility] Comment on above: Result Comment: This specimen has been REJECTED due to Laboratory criteria:Clotted.CARGABRITE has been notified of need of recollection.11/05/242304 Quintin R Cardenas Performed By: #### B TS, L503.6005, L500.2500, M100.7900, L300.4310, L100.0100, L300.3900 ####[facility] [address] [place], [place], [address] RDW SD Normal 35.1-43.9 [facility] Comment on above: Result Comment: This specimen has been REJECTED due to Laboratory criteria:Clotted.CARGABRITE has been notified of need of recollection.11/05/242304 Quintin R Cardenas Performed By: #### B TS, L503.6005, L500.2500, M100.7900, L300.4310, L100.0100, L300.3900 ####[facility] [address] [place], [place], [address] WBC Normal 4.4-11.0 [facility] Comment on above: Result Comment: This specimen has been REJECTED due to Laboratory criteria:Clotted.DEIRDRE has been notified of need of recollection.11/05/24 2305 Quintin R Cardenas Performed By: #### B TS, L503.6005, L500.2500, M100.7900, L300.4310, L100.0100, L300.3900 ####[facility] [address] [place], [place], [address] CTA Abd/Pelvis W/WO Contrast on 11-05-2024 CTA Abd/Pelvis W/WO Contrast Normal [facility] Carbon dioxide, total [Moles /volume] in Central venous bloodOrdered By: Harrison Linares on 11-05-2024 CO2 [Moles/Vol] 23.8 mmol/L 21.0-32.0 [facility] Chloride assayOrdered By: Erica Linares on 11-05-2024 Chloride [Moles/Vol] 90 mmol/L Low 98-108 [facility] Eosinophil percentageOrdered By: Harrison Linares on 11-05-2024 Eosinophils/100 WBC (Bld) 0.6 % 0-5 [facility] Erythrocyte distribution wid th (RBC) [Ratio]Ordered By: Harrison Linares on 11-05-2024 Erythrocyte distribution width (RBC) [Entitic vol] 39.0 fL 35.1-43.9 [facility] Erythrocyte distribution wid th ratioOrdered By: Harrison Linares on 11-05-2024 Erythrocyte distribution width (RBC) [Ratio] 12.2 % 11.6-14.6 [facility] Estimation of creatinine dunia aranceOrdered By: Harrison Linares on 11-05-2024 Estimated Creatinine Clearance Calc 59.87 ml/min 50-250 [facility] GFR/1.73 sq M.predicted gregg g non-blacks MDRD (S/P/Bld) [Vol rate/Area]Ordered By: Harrison Linares on 11-05-2024 Estimated GFR (MDRD) Non-Af Amer 84 >60 [facility] Comment on above: mL/min/1.73m2 CKD-EP I Creatinine Equation (2020) Hematocrit Auto (Bld) [Volum e fraction]Ordered By: Harrison Linares on 11-05-2024 Hematocrit (Bld) [Volume fraction] 32.9 % Low 40-54 [facility] Hemoglobin measurementOrdere d By: Harrison Linares on 11-05-2024 Hemoglobin (Bld) [Mass/Vol] 11.5 g/dL Low 13.0-16.5 [facility] Immature granulocytes/100 WB C Auto (Bld)Ordered By: Harrison Linares on 11-05-2024 Immature granulocytes/100 WBC (Bld) 0.600 % 0.0-0.9 [facility] Comment on above: IG% - Immature Granu locytes (promyelocytes, myelocytes and metamyelocytes) > 1% indicates that a LEFT SHIFT is Present. International normalized rat io (INR) calculationOrdered By: Harrison Linares on 11-05-2024 INR Coag (Bld) [Relative time] 0.9 {INR} [facility] Lactic Acidon 11-05-2024 Lactate [Moles/Vol] mmol/L Normal 0.0-2.0 [facility] Comment on above: Order Comment: Y Performed By: #### B TS, L503.6005, L500.2500, M100.7900, L300.4310, L100.0100, L300.3900 ####[facility] [address] [place], [place], [address] Lactic acid measurementOrder ed By: Harrison Linares on 11-05-2024 Lactate [Moles/Vol] mmol/L 0.0-2.0 [facility] Lower GI hemoglobin IA Ql (S tl)Ordered By: Harrison Linares on 11-05-2024 Stool Occult Blood (EDINSON) Positive Abnormal [facility] Lymphocytes Auto (Unsp spec) [#/Vol]Ordered By: Harrison Linares on 11-05-2024 Lymphocytes (Bld) [#/Vol] 1.16 10*3/uL 0.83-4.51 [facility] Lymphocytes/100 WBC Auto (Un sp spec)Ordered By: Harrison Linares on 11-05-2024 Lymphocytes/100 WBC (Bld) 12.9 % Low 19-41 [facility] MCV (mean corpuscular volume ) determinationOrdered By: Harrison Linares on 11-05-2024 MCV (RBC) [Entitic vol] 87.3 fL 80-94 [facility] Magnesium (Unsp spec) [Mass/ Vol]Ordered By: Darrel Sanders on 11-05-2024 Magnesium [Mass/Vol] 2.3 mg/dL High 1.5-2.2 [facility] Magnesium measurement (mass/ volume)Ordered By: Darrel Sanders on 11-05-2024 Magnesium (Unsp spec) [Mass/Vol] 2.3 mg/dL High 1.5-2.2 [facility] Mean corpuscular hemoglobin (MCH) determinationOrdered By: Harrison Linares on 11-05-2024 MCH (RBC) [Entitic mass] 30.5 pg 27.0-32.0 [facility] Mean corpuscular hemoglobin concentration (MCHC) determinationOrdered By: Harrison Linares on 11-05-2024 MCHC (RBC) [Mass/Vol] 35.0 g/dL 32-36 [facility] Mean platelet volume determi nationOrdered By: Harrison Linares on 11-05-2024 Platelet mean volume (Bld) [Entitic vol] 8.7 fL 6.2-12.0 [facility] Monocyte percentageOrdered B y: Harrison Linares on 11-05-2024 Monocytes/100 WBC (Bld) 8.9 % 0-10 [facility] Neutrophil percentageOrdered By: Harrison Linares on 11-05-2024 Neutrophils/100 WBC (Bld) 76.8 % High 47-70 [facility] Nucleated red blood cell per centageOrdered By: Harrison Linares on 11-05-2024 Nucleated RBC/100 WBC (Bld) [Ratio] 0 % 0-5 [facility] Partial Thromboplast Timeon 11-05-2024 aPTT Coag (Bld) [Time] 22.1 s Low 24.1-36.2 [facility] Comment on above: Performed By: #### B TS, L503.6005, L500.2500, M100.7900, L300.4310, L100.0100, L300.3900 ####[facility] [address] [place], [address] Platelet countOrdered By: Erica Linares on 11-05-2024 Platelets (Bld) [#/Vol] 274 10*3/uL 150-450 [facility] Potassium (Unsp spec) [Mass/ Vol]Ordered By: Harrison Linares on 11-05-2024 Potassium [Moles/Vol] 4.0 mmol/L 3.3-5.1 [facility] Prothrombin Time w/INRon INR Coag (PPP) [Relative time] 0.9 {INR} Normal [facility] Comment on above: Performed By: #### B TS, L503.6005, L500.2500, M100.7900, L300.4310, L100.0100, L300.3900 ####[facility] [address] [place], [address] PT Coag (PPP) [Time] 12.2 s Normal 11.7-14.9 [facility] Comment on above: Performed By: #### B TS, L503.6005, L500.2500, M100.7900, L300.4310, L100.0100, L300.3900 ####[facility] [address] [place], [address] Prothrombin timeOrdered By: Harrison Linares on 11-05-2024 PT Coag (PPP) [Time] 12.2 s 11.7-14.9 [facility] RBC Auto (Bld) [#/Vol]Ordere d By: Harrison Linares on 11-05-2024 RBC (Bld) [#/Vol] 3.77 10*6/uL Low 4.6-6.2 [facility] Serum creatinine measurement (mass/volume)Ordered By: Harrison Linares on 11-05-2024 Creatinine [Mass/Vol] 0.92 mg/dL 0.70-1.20 [facility] Serum glucose measurement (m ass/volume)Ordered By: Harrison Linares on 11-05-2024 Glucose [Mass/Vol] 110 mg/dL High 70-99 [facility] Serum or plasma calcium shagufta urement (mass/volume)Ordered By: Harrison Linares on 11-05-2024 Calcium [Mass/Vol] 9.0 mg/dL 7.6-11.0 [facility] Serum or plasma urea nitroge n measurement (mass/volume)Ordered By: Harrison Linares on 11-05-2024 Urea nitrogen [Mass/Vol] 14 mg/dL 4-19 [facility] Sodium levelOrdered By: Dylan Linares on 11-05-2024 Sodium [Moles/Vol] 126 mmol/L Low 133-145 [facility] Stool gastrointestinal hemog lobin detection by immunologic methodOrdered By: Harrison Linares on 11-05-2024 Lower GI hemoglobin IA Ql (Stl) Positive Abnormal [facility] Type AND Screenon 11-05-2024 ABO and Rh group Nom (Bld) Blood group O Rh(D) positive Normal [facility] Comment on above: Order Comment: HGI Performed By: #### B TS, L503.6005, L500.2500, M100.7900, L300.4310, L100.0100, L300.3900 ####[facility] [address] [place], [place], [id number] White blood cell (WBC) count Ordered By: Harrison Linares on 11-05-2024 WBC (Bld) [#/Vol] 9.0 10*3/uL 4.4-11.0 [facility] aPTT Coag (PPP) [Time]Ordere d By: Harrison Linares on 11-05-2024 aPTT Coag (Bld) [Time] 22.1 s Low 24.1-36.2 [facility] CNPNon 11-02-2024 CNPN Telephone (HEMAWS) -- CHRISJARED Kaitlin ([id number]) 1945 M Date Time Provider Department 11/02/24 PAPI HERNANDEZ During your visit today, we recorded the following information about you: Filomena Rodrigues 11/02/2024 2:33 PM Signed Patient and his daughter stopped in to talk to Jolynn Frias. 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 Please call patients daughter Teresa [phone] Allergies As of Date: 11/02/2024 (No Known Allergies) Date Reviewed: 05/05/2020 Reviewed by: Caro Mo (Rn), RN - Fully Assessed Reason for Visit: Patient Question [3437] Prescriptions as of 01/12/2025 - amLODIPine (NORVASC) [...] of Hemorrhage [*03/23/2010 Coronary artery disease involving [place]*07/18/2019 History of varicose veins [Z86.79] 07/18/2019 Chest pain, unspecified [R07.9] 07/18/2019 History of CVA (cerebrovascular accident) [Z86.*07/18/2019 Discharge planning issues [Z75.8] 07/18/2019 Preop testing [Z01.818] 07/18/2019 On mechanically assisted ventilation (HCC) [Z99*07/19/2019 07/20/2019 Pain, postoperative, acute [G89.18] 07/19/2019 Stress hyperglycemia [R73.9] 07/19/2019 07/21/2019 Atelectasis [J98.11] 07/20/2019 Transition of care performed with sharing of cl*07/21/2019 Encounter Status:Closed by FILOMENA RODRIGUES on 01/12/25 Normal [facility] Oncology Visit Reporton 04- Oncology Visit Report Normal [facility] Carcinoembryonic Antigenon 0 - CEA 25.2 ng/mL High 0.0-4.7 [facility] Comment on above: Order Comment: ADD O N TO BW-ALREADY IN LAB Result Comment: Nons mokers <3.9 Smokers <5.6[employer] Electrochemiluminescence Immunoassay(ECLIA)Values obtained with different assay methods or kitscannot be used interchangeably. Results cannot beinterpreted as absolute evidence of the presence orabsence of malignant disease.Performed at: [employer] [address] Director: Jian Paredes PhD, Phone: [phone] Performed By: #### L 2628.5411 ####[facility] [address] [place], [place], [id number] Abdomen/Pelvis W IV Cont ONL Yon 10-24-2024 Abdomen/Pelvis W IV Cont ONLY Normal [facility] Absolute lymphocyte countOrd ered By: Jerry Hightower on 10-24-2024 Lymphocytes Auto (Unsp spec) [#/Vol] 1.10 10*3/uL 0.83-4.51 [facility] Absolute lymphocyte countOrd ered By: Ppai Hernandez on 10-24-2024 Lymphocytes Auto (Unsp spec) [#/Vol] 1.26 10*3/uL 0.83-4.51 [facility] Absolute neutrophil countOrd ered By: Jerry Hightower on 10-24-2024 Neutrophils (Bld) [#/Vol] 6.7 10*3/uL 2.0-7.7 [facility] Absolute neutrophil countOrd ered By: Papi Hernandez on 10-24-2024 Neutrophils (Bld) [#/Vol] 6.5 10*3/uL 2.0-7.7 [facility] Anion gap in Serum or Plasma Ordered By: Jerry Hightower on 10-24-2024 Anion gap [Moles/Vol] 11 mmol/L 12-13 [facility] Anion gap in Serum or Plasma Ordered By: Papi Hernandez on 10-24-2024 Anion gap [Moles/Vol] 9 mmol/L 12-13 [facility] Automated lymphocyte count a s percentage of total leukocytesOrdered By: Jerry Hightower on 10-24-2024 Lymphocytes/100 WBC Auto (Unsp spec) 12.7 % Low [facility] Automated lymphocyte count a s percentage of total leukocytesOrdered By: Papi Hernandez on 10-24-2024 Lymphocytes/100 WBC Auto (Unsp spec) 14.4 % Low [facility] BUN/creatinine ratioOrdered By: Jerry Hightower on 10-24-2024 Urea nitrogen/Creatinine [Mass ratio] 11.6 mg/mg 05-20 [facility] BUN/creatinine ratioOrdered By: Papi Hernandez on 10-24-2024 Urea nitrogen/Creatinine [Mass ratio] 12.0 mg/mg 05-20 [facility] Basophil percentageOrdered B y: Jerry Hightower on 10-24-2024 Basophils/100 WBC (Bld) 0.3 % 0-1 [facility] Basophil percentageOrdered B y: Papi Hernandez on 10-24-2024 Basophils/100 WBC (Bld) 0.3 % 0-1 [facility] Bilirubin Test strip Ql (U)O rdered By: Jerry Hightower on 10-24-2024 Bilirubin Ql (U) Negative Negative [facility] Bilirubin, totalOrdered By: Jerry Hightower on 10-24-2024 Bilirubin [Mass/Vol] 0.55 mg/dL 0.00-1.30 [facility] Bilirubin, totalOrdered By: Papi Hernandez on 10-24-2024 Bilirubin [Mass/Vol] 0.50 mg/dL 0.00-1.30 [facility] CBC W/Diff, Automatedon 09-30 Absolute Lymph 1.10 X10 3/uL Normal 0.83-4.51 [facility] Comment on above: Performed By: #### L 500.4050, L501.2450, L100.0100, L503.6005 ####[facility] [address] [place], [address] Absolute Neut 6.7 X10 3/uL Normal 2.0-7.7 [facility] Comment on above: Performed By: #### L 500.4050, L501.2450, L100.0100, L503.6005 ####[facility] [address] [place], [address] Basophils/100 WBC (Bld) 0.3 % Normal 0-1 [facility] Comment on above: Performed By: #### L 500.4050, L501.2450, L100.0100, L503.6005 ####[facility] [address] [place], [address] Eosinophils/100 WBC (Bld) 1.0 % Normal 0-5 [facility] Comment on above: Performed By: #### L 500.4050, L501.2450, L100.0100, L503.6005 ####[facility] [address] [place], [address] Erythrocyte distribution width (RBC) [Ratio] 12.4 % Normal 11.6-14.6 [facility] Comment on above: Performed By: #### L 500.4050, L501.2450, L100.0100, L503.6005 ####[facility] [address] [place], [address] Hematocrit (Bld) [Volume fraction] 37.0 % Low 40-54 [facility] Comment on above: Performed By: #### L 500.4050, L501.2450, L100.0100, L503.6005 ####[facility] [address] [place], [address] Hemoglobin (Bld) [Mass/Vol] 13.1 g/dL Normal 13.0-16.5 [facility] Comment on above: Performed By: #### L 500.4050, L501.2450, L100.0100, L503.6005 ####[facility] [address] [place], [address] IG% 0.500 Normal 0.0-0.9 [facility] Comment on above: Result Comment: IG% - Immature Granulocytes (promyelocytes, myelocytes andmetamyelocytes) > 1% indicates that a LEFT SHIFT is Present. Performed By: #### L 500.4050, L501.2450, L100.0100, L503.6005 ####[facility] [address] [place], [address] Lymphocytes/100 WBC (Bld) 12.7 % Low 19-41 [facility] Comment on above: Performed By: #### L 500.4050, L501.2450, L100.0100, L503.6005 ####[facility] [address] [place], [address] MCH (RBC) [Entitic mass] 30.8 pg Normal 27.0-32.0 [facility] Comment on above: Performed By: #### L 500.4050, L501.2450, L100.0100, L503.6005 ####[facility] [address] [place], [address] MCHC (RBC) [Mass/Vol] 35.4 g/dL Normal 32-36 [facility] Comment on above: Performed By: #### L 500.4050, L501.2450, L100.0100, L503.6005 ####[facility] [address] [place], [address] MCV (RBC) [Entitic vol] 87.1 fL Normal 80-94 [facility] Comment on above: Performed By: #### L 500.4050, L501.2450, L100.0100, L503.6005 ####[facility] [address] [place], [address] Monocytes/100 WBC (Bld) 8.4 % Normal 0-10 [facility] Comment on above: Performed By: #### L 500.4050, L501.2450, L100.0100, L503.6005 ####[facility] [address] [place], [address] Neutrophils/100 WBC (Bld) 77.1 % High 47-70 [facility] Comment on above: Performed By: #### L 500.4050, L501.2450, L100.0100, L503.6005 ####[facility] [address] [place], [address] Nucleated RBC (Bld) [#/Vol] 0 10*3/uL Normal 0-5 [facility] Comment on above: Performed By: #### L 500.4050, L501.2450, L100.0100, L503.6005 ####[facility] [address] [place], [address] Platelet mean volume (Bld) [Entitic vol] 9.0 fL Normal 6.2-12.0 [facility] Comment on above: Performed By: #### L 500.4050, L501.2450, L100.0100, L503.6005 ####[facility] [address] [place], [address] Platelets (Bld) [#/Vol] 307 10*3/uL Normal 150-450 [facility] Comment on above: Performed By: #### L 500.4050, L501.2450, L100.0100, L503.6005 ####[facility] [address] [place], [address] RBC (Bld) [#/Vol] 4.25 10*6/uL Low 4.6-6.2 [facility] Comment on above: Performed By: #### L 500.4050, L501.2450, L100.0100, L503.6005 ####[facility] [address] [place], [address] RDW SD 39.6 fl Normal 35.1-43.9 [facility] Comment on above: Performed By: #### L 500.4050, L501.2450, L100.0100, L503.6005 ####[facility] [address] [place], [address] WBC (Bld) [#/Vol] 8.7 10*3/uL Normal 4.4-11.0 [facility] Comment on above: Performed By: #### L 500.4050, L501.2450, L100.0100, L503.6005 ####[facility] [address] [place], [address] Absolute Lymph 1.26 X10 3/uL Normal 0.83-4.51 [facility] Comment on above: Performed By: #### L 900.0098, L504.2610, L100.0100, L500.4050 ####[facility] [address] [place], [address] Absolute Neut 6.5 X10 3/uL Normal 2.0-7.7 [facility] Comment on above: Performed By: #### L 900.0098, L504.2610, L100.0100, L500.4050 ####[facility] [address] [place], [address] Basophils/100 WBC (Bld) 0.3 % Normal 0-1 [facility] Comment on above: Performed By: #### L 900.0098, L504.2610, L100.0100, L500.4050 ####[facility] [address] [place], [address] Eosinophils/100 WBC (Bld) 1.6 % Normal 0-5 [facility] Comment on above: Performed By: #### L 900.0098, L504.2610, L100.0100, L500.4050 ####[facility] [address] [place], [address] Erythrocyte distribution width (RBC) [Ratio] 12.5 % Normal 11.6-14.6 [facility] Comment on above: Performed By: #### L 900.0098, L504.2610, L100.0100, L500.4050 ####[facility] [address] [place], [address] Hematocrit (Bld) [Volume fraction] 38.0 % Low 40-54 [facility] Comment on above: Performed By: #### L 900.0098, L504.2610, L100.0100, L500.4050 ####[facility] [address] [place], [address] Hemoglobin (Bld) [Mass/Vol] 13.2 g/dL Normal 13.0-16.5 [facility] Comment on above: Performed By: #### L 900.0098, L504.2610, L100.0100, L500.4050 ####[facility] [address] [place], [address] IG% 0.200 Normal 0.0-0.9 [facility] Comment on above: Result Comment: IG% - Immature Granulocytes (promyelocytes, myelocytes andmetamyelocytes) > 1% indicates that a LEFT SHIFT is Present. Performed By: #### L 900.0098, L504.2610, L100.0100, L500.4050 ####[facility] [address] [place], [address] Lymphocytes/100 WBC (Bld) 14.4 % Low 19-41 [facility] Comment on above: Performed By: #### L 900.0098, L504.2610, L100.0100, L500.4050 ####[facility] [address] [place], [address] MCH (RBC) [Entitic mass] 30.8 pg Normal 27.0-32.0 [facility] Comment on above: Performed By: #### L 900.0098, L504.2610, L100.0100, L500.4050 ####[facility] [address] [place], [address] MCHC (RBC) [Mass/Vol] 34.7 g/dL Normal 32-36 [facility] Comment on above: Performed By: #### L 900.0098, L504.2610, L100.0100, L500.4050 ####[facility] [address] [place], [address] MCV (RBC) [Entitic vol] 88.8 fL Normal 80-94 [facility] Comment on above: Performed By: #### L 900.0098, L504.2610, L100.0100, L500.4050 ####[facility] [address] [place], [address] Monocytes/100 WBC (Bld) 9.7 % Normal 0-10 [facility] Comment on above: Performed By: #### L 900.0098, L504.2610, L100.0100, L500.4050 ####[facility] [address] [place], [address] Neutrophils/100 WBC (Bld) 73.8 % High 47-70 [facility] Comment on above: Performed By: #### L 900.0098, L504.2610, L100.0100, L500.4050 ####[facility] [address] [place], [address] Nucleated RBC (Bld) [#/Vol] 0 10*3/uL Normal 0-5 [facility] Comment on above: Performed By: #### L 900.0098, L504.2610, L100.0100, L500.4050 ####[facility] [address] [place], [address] Platelet mean volume (Bld) [Entitic vol] 8.8 fL Normal 6.2-12.0 [facility] Comment on above: Performed By: #### L 900.0098, L504.2610, L100.0100, L500.4050 ####[facility] [address] [place], [address] Platelets (Bld) [#/Vol] 299 10*3/uL Normal 150-450 [facility] Comment on above: Performed By: #### L 900.0098, L504.2610, L100.0100, L500.4050 ####[facility] [address] [place], [address] RBC (Bld) [#/Vol] 4.28 10*6/uL Low 4.6-6.2 [facility] Comment on above: Performed By: #### L 900.0098, L504.2610, L100.0100, L500.4050 ####[facility] [address] [place], [address] RDW SD 40.6 fl Normal 35.1-43.9 [facility] Comment on above: Performed By: #### L 900.0098, L504.2610, L100.0100, L500.4050 ####[facility] [address] [place], [address] WBC (Bld) [#/Vol] 8.8 10*3/uL Normal 4.4-11.0 [facility] Comment on above: Performed By: #### L 900.0098, L504.2610, L100.0100, L500.4050 ####[facility] [address] [place], [address] Carbon dioxide, total [Moles /volume] in Central venous bloodOrdered By: Jerry Hightower on 10-24-2024 CO2 [Moles/Vol] 26.7 mmol/L 21.0-32.0 [facility] Carbon dioxide, total [Moles /volume] in Central venous bloodOrdered By: Papi Hernandez on 10-24-2024 CO2 [Moles/Vol] 26.7 mmol/L 21.0-32.0 [facility] Chloride assayOrdered By: Avinash Hightower on 10-24-2024 Chloride [Moles/Vol] 92 mmol/L Low 98-108 [facility] Chloride assayOrdered By: Santa Hernandez on 10-24-2024 Chloride [Moles/Vol] 94 mmol/L Low 98-108 [facility] Comprehensive Metabolic Prof ilon 10-24-2024 Albumin [Mass/Vol] 4.3 g/dL Normal 3.4-4.8 [facility] Comment on above: Performed By: #### L 500.4050, L501.2450, L100.0100, L503.6005 ####[facility] [address] [place], [address] Albumin/Globulin [Mass ratio] 1.4 {ratio} Normal 0.9-2.4 [facility] Comment on above: Performed By: #### L 500.4050, L501.2450, L100.0100, L503.6005 ####[facility] [address] [place], [address] ALK PHOS 103 U/L Normal 40-129 [facility] Comment on above: Performed By: #### L 500.4050, L501.2450, L100.0100, L503.6005 ####[facility] [address] [place], [address] ALT [Catalytic activity/Vol] 17 U/L Normal <=46 [facility] Comment on above: Performed By: #### L 500.4050, L501.2450, L100.0100, L503.6005 ####[facility] [address] [place], [address] AST [Catalytic activity/Vol] 27 U/L Normal <=37 [facility] Comment on above: Performed By: #### L 500.4050, L501.2450, L100.0100, L503.6005 ####[facility] [address] [place], [address] Bilirubin [Mass/Vol] 0.55 mg/dL Normal 0.00-1.30 [facility] Comment on above: Performed By: #### L 500.4050, L501.2450, L100.0100, L503.6005 ####[facility] [address] [place], [address] BUN/CRE 11.6 RATIO Normal 10-20 [facility] Comment on above: Performed By: #### L 500.4050, L501.2450, L100.0100, L503.6005 ####[facility] [address] [place], [address] Calcium [Mass/Vol] 9.2 mg/dL Normal 7.6-11.0 [facility] Comment on above: Performed By: #### L 500.4050, L501.2450, L100.0100, L503.6005 ####[facility] [address] [place], [address] Chloride [Moles/Vol] 92 mmol/L Low 98-108 [facility] Comment on above: Performed By: #### L 500.4050, L501.2450, L100.0100, L503.6005 ####[facility] [address] [place], [address] CO2 [Moles/Vol] 26.7 mmol/L Normal 21.0-32.0 [facility] Comment on above: Performed By: #### L 500.4050, L501.2450, L100.0100, L503.6005 ####[facility] [address] [place], [address] Creatinine [Mass/Vol] 0.94 mg/dL Normal 0.70-1.20 [facility] Comment on above: Performed By: #### L 500.4050, L501.2450, L100.0100, L503.6005 ####[facility] [address] [place], [address] ECRCL 56.56 ml/min Normal 50-250 [facility] Comment on above: Performed By: #### L 500.4050, L501.2450, L100.0100, L503.6005 ####[facility] [address] [place], [address] GAP 11 Normal 5-15 [facility] Comment on above: Performed By: #### L 500.4050, L501.2450, L100.0100, L503.6005 ####[facility] [address] [place], [address] GFR/1.73 sq M.predicted among non-blacks MDRD (S/P/Bld) [Vol rate/Area] 82 mL/min/{1.73_m2} Normal >60 [facility] Comment on above: Result Comment: mL/m in/1.73m2 CKD-EPI Creatinine Equation (2020) Performed By: #### L 500.4050, L501.2450, L100.0100, L503.6005 ####[facility] [address] [place], [address] Globulin (S) [Mass/Vol] 3.0 g/dL Normal 2.2-4.2 [facility] Comment on above: Performed By: #### L 500.4050, L501.2450, L100.0100, L503.6005 ####[facility] [address] [place], [address] Glucose [Mass/Vol] 105 mg/dL High 70-99 [facility] Comment on above: Performed By: #### L 500.4050, L501.2450, L100.0100, L503.6005 ####[facility] [address] [place], [address] Potassium [Moles/Vol] 3.8 mmol/L Normal 3.3-5.1 [facility] Comment on above: Performed By: #### L 500.4050, L501.2450, L100.0100, L503.6005 ####[facility] [address] [place], [address] Sodium [Moles/Vol] 130 mmol/L Low 133-145 [facility] Comment on above: Performed By: #### L 500.4050, L501.2450, L100.0100, L503.6005 ####[facility] [address] [place], [address] T PROT 7.3 g/dL Normal 5.9-8.4 [facility] Comment on above: Performed By: #### L 500.4050, L501.2450, L100.0100, L503.6005 ####[facility] [address] [place], [address] Urea nitrogen [Mass/Vol] 11 mg/dL Normal 4-19 [facility] Comment on above: Performed By: #### L 500.4050, L501.2450, L100.0100, L503.6005 ####[facility] [address] [place], [address] Albumin [Mass/Vol] 4.2 g/dL Normal 3.4-4.8 [facility] Comment on above: Performed By: #### L 900.0098, L504.2610, L100.0100, L500.4050 ####[facility] [address] [place], [address] Albumin/Globulin [Mass ratio] 1.4 {ratio} Normal 0.9-2.4 [facility] Comment on above: Performed By: #### L 900.0098, L504.2610, L100.0100, L500.4050 ####[facility] [address] [place], [address] ALK PHOS 100 U/L Normal 40-129 [facility] Comment on above: Performed By: #### L 900.0098, L504.2610, L100.0100, L500.4050 ####[facility] [address] [place], [address] ALT [Catalytic activity/Vol] 16 U/L Normal <=46 [facility] Comment on above: Performed By: #### L 900.0098, L504.2610, L100.0100, L500.4050 ####[facility] [address] [place], [address] AST [Catalytic activity/Vol] 27 U/L Normal <=37 [facility] Comment on above: Performed By: #### L 900.0098, L504.2610, L100.0100, L500.4050 ####[facility] [address] [place], [address] Bilirubin [Mass/Vol] 0.50 mg/dL Normal 0.00-1.30 [facility] Comment on above: Performed By: #### L 900.0098, L504.2610, L100.0100, L500.4050 ####[facility] [address] [place], [address] BUN/CRE 12.0 RATIO Normal 10-20 [facility] Comment on above: Performed By: #### L 900.0098, L504.2610, L100.0100, L500.4050 ####[facility] [address] [place], [address] Calcium [Mass/Vol] 9.2 mg/dL Normal 7.6-11.0 [facility] Comment on above: Performed By: #### L 900.0098, L504.2610, L100.0100, L500.4050 ####[facility] [address] [place], [address] Chloride [Moles/Vol] 94 mmol/L Low 98-108 [facility] Comment on above: Performed By: #### L 900.0098, L504.2610, L100.0100, L500.4050 ####[facility] [address] [place], [address] CO2 [Moles/Vol] 26.7 mmol/L Normal 21.0-32.0 [facility] Comment on above: Performed By: #### L 900.0098, L504.2610, L100.0100, L500.4050 ####[facility] [address] [place], [address] Creatinine [Mass/Vol] 0.90 mg/dL Normal 0.70-1.20 [facility] Comment on above: Performed By: #### L 900.0098, L504.2610, L100.0100, L500.4050 ####[facility] [address] [place], [address] ECRCL 61.20 ml/min Normal 50-250 [facility] Comment on above: Performed By: #### L 900.0098, L504.2610, L100.0100, L500.4050 ####[facility] [address] [place], [address] GAP 9 Normal 5-15 [facility] Comment on above: Performed By: #### L 900.0098, L504.2610, L100.0100, L500.4050 ####[facility] [address] [place], [address] GFR/1.73 sq M.predicted among non-blacks MDRD (S/P/Bld) [Vol rate/Area] 86 mL/min/{1.73_m2} Normal >60 [facility] Comment on above: Result Comment: mL/m in/1.73m2 CKD-EPI Creatinine Equation (2020) Performed By: #### L 900.0098, L504.2610, L100.0100, L500.4050 ####[facility] [address] [place], [address] Globulin (S) [Mass/Vol] 2.9 g/dL Normal 2.2-4.2 [facility] Comment on above: Performed By: #### L 900.0098, L504.2610, L100.0100, L500.4050 ####[facility] [address] [place], [address] Glucose [Mass/Vol] 107 mg/dL High 70-99 [facility] Comment on above: Performed By: #### L 900.0098, L504.2610, L100.0100, L500.4050 ####[facility] [address] [place], [address] Potassium [Moles/Vol] 4.2 mmol/L Normal 3.3-5.1 [facility] Comment on above: Performed By: #### L 900.0098, L504.2610, L100.0100, L500.4050 ####[facility] [address] [place], [address] Sodium [Moles/Vol] 131 mmol/L Low 133-145 [facility] Comment on above: Performed By: #### L 900.0098, L504.2610, L100.0100, L500.4050 ####[facility] [address] [place], [address] T PROT 7.0 g/dL Normal 5.9-8.4 [facility] Comment on above: Performed By: #### L 900.0098, L504.2610, L100.0100, L500.4050 ####[facility] [address] [place], [address] Urea nitrogen [Mass/Vol] 11 mg/dL Normal 4-19 [facility] Comment on above: Performed By: #### L 900.0098, L504.2610, L100.0100, L500.4050 ####[facility] [address] [place], [address] Emergency Department Summary on 10-24-2024 Emergency Department Summary Normal [facility] Eosinophil percentageOrdered By: Jerry Hightower on 10-24-2024 Eosinophils/100 WBC (Bld) 1.0 % 0-5 [facility] Eosinophil percentageOrdered By: Papi Hernandez on 10-24-2024 Eosinophils/100 WBC (Bld) 1.6 % 0-5 [facility] Epithelial cells.squamous LM Ql (Urine sed)Ordered By: Jerry Hightower on 10-24-2024 Epithelial cells.squamous LM.HPF (Urine sed) [#/Area] 0 /[HPF] 0-5 [facility] Erythrocyte distribution wid th ratioOrdered By: Jerry Hightower on 10-24-2024 Erythrocyte distribution width (RBC) [Ratio] 12.4 % 11.6-14.6 [facility] Erythrocyte distribution wid th ratioOrdered By: Papi Hernandez on 10-24-2024 Erythrocyte distribution width (RBC) [Ratio] 12.5 % 11.6-14.6 [facility] Erythrocyte distribution wid th standard deviationOrdered By: Jerry Hightower on 10-24-2024 Erythrocyte distribution width (RBC) [Entitic vol] 39.6 fL 35.1-43.9 [facility] Erythrocyte distribution width (RBC) [Ratio] 39.6 fl 35.1-43.9 [facility] Erythrocyte distribution wid th standard deviationOrdered By: Papi Hernandez on 10-24-2024 Erythrocyte distribution width (RBC) [Entitic vol] 40.6 fL 35.1-43.9 [facility] Erythrocyte distribution width (RBC) [Ratio] 40.6 fl 35.1-43.9 [facility] Estimation of creatinine dunia aranceOrdered By: Jerry Hightower on 10-24-2024 Estimated Creatinine Clearance Calc 56.56 ml/min 50-250 [facility] Estimation of creatinine dunia aranceOrdered By: Papi Hernandez on 10-24-2024 Estimated Creatinine Clearance Calc 61.20 ml/min 50-250 [facility] GFR/1.73 sq M.predicted gregg g non-blacks MDRD (S/P/Bld) [Vol rate/Area]Ordered By: Jerry Hightower on 10-24-2024 Estimated GFR (MDRD) Non-Af Amer 82 >60 [facility] Comment on above: mL/min/1.73m2 CKD-EP I Creatinine Equation (2020) GFR/1.73 sq M.predicted gregg g non-blacks MDRD (S/P/Bld) [Vol rate/Area]Ordered By: Papi Hernandez on 10-24-2024 Estimated GFR (MDRD) Non-Af Amer 86 >60 [facility] Comment on above: mL/min/1.73m2 CKD-EP I Creatinine Equation (2020) Glomerular filtration rate ( GFR) estimation/1.73 sq m using serum, plasma, or whole bOrdered By: Jerry Hightower on 10-24-2024 GFR/1.73 sq M.predicted among non-blacks MDRD (S/P/Bld) [Vol rate/Area] 82 mL/min/{1.73_m2} >60 [facility] Comment on above: mL/min/1.73m2 CKD-EP I Creatinine Equation (2020) Glomerular filtration rate ( GFR) estimation/1.73 sq m using serum, plasma, or whole bOrdered By: Papi Hernandez on 10-24-2024 GFR/1.73 sq M.predicted among non-blacks MDRD (S/P/Bld) [Vol rate/Area] 86 mL/min/{1.73_m2} >60 [facility] Comment on above: mL/min/1.73m2 CKD-EP I Creatinine Equation (2020) Glucose Ql (U)Ordered By: Avinash Hightower on 10-24-2024 Urine Glucose (UA) Normal mg/dl Normal [facility] Hematocrit Auto (Bld) [Volum e fraction]Ordered By: Jerry Hightower on 10-24-2024 Hematocrit (Bld) [Volume fraction] 37.0 % Low 40-54 [facility] Hematocrit Auto (Bld) [Volum e fraction]Ordered By: Papi Hernandez on 10-24-2024 Hematocrit (Bld) [Volume fraction] 38.0 % Low 40-54 [facility] Hemoglobin measurementOrdere d By: Jerry Hightower on 10-24-2024 Hemoglobin (Bld) [Mass/Vol] 13.1 g/dL 13.0-16.5 [facility] Hemoglobin measurementOrdere d By: Papi Hernandez on 10-24-2024 Hemoglobin (Bld) [Mass/Vol] 13.2 g/dL 13.0-16.5 [facility] Immature granulocytes/100 WB C Auto (Bld)Ordered By: Jerry Hightower on 10-24-2024 Immature granulocytes/100 WBC (Bld) 0.500 % 0.0-0.9 [facility] Comment on above: IG% - Immature Granu locytes (promyelocytes, myelocytes and metamyelocytes) > 1% indicates that a LEFT SHIFT is Present. Immature granulocytes/100 WB C Auto (Bld)Ordered By: Papi Hernandez on 10-24-2024 Immature granulocytes/100 WBC (Bld) 0.200 % 0.0-0.9 [facility] Comment on above: IG% - Immature Granu locytes (promyelocytes, myelocytes and metamyelocytes) > 1% indicates that a LEFT SHIFT is Present. Ketones Test strip Ql (U)Ord ered By: Jerry Hightower on 10-24-2024 Ketones Ql (U) Negative Negative [facility] LDHon 10-24-2024 LDH 105 U/L Normal 87-241 [facility] Comment on above: Order Comment: 1 Performed By: #### L 900.0098, L504.2610, L100.0100, L500.4050 ####[facility] [address] [place], [place], [id number] Laboratory - Chemistry and C hemistry - challengeOrdered By: Jerry Hightower on 10-24-2024 AST [Catalytic activity/Vol] 27 U/L <38 [facility] Laboratory - Chemistry and C hemistry - challengeOrdered By: Papi Hernandez on 10-24-2024 AST [Catalytic activity/Vol] 27 U/L <38 [facility] Lactate dehydrogenase (LDH) measurementOrdered By: Papi Hernandez on 10-24-2024 LDH [Catalytic activity/Vol] 105 U/L 87-241 [facility] Lactic Acidon 10-24-2024 Lactate [Moles/Vol] 1.1 mmol/L Normal 0.0-2.0 [facility] Comment on above: Order Comment: Y Performed By: #### L 500.4050, L501.2450, L100.0100, L503.6005 ####[facility] [address] [place], [place], [address] Lactic acid measurementOrder ed By: Jerry Hightower on 10-24-2024 Lactate [Moles/Vol] 1.1 mmol/L 0.0-2.0 [facility] Lipaseon 10-24-2024 Lipase [Catalytic activity/Vol] 28 U/L Normal 13-75 [facility] Comment on above: Result Comment: Debi vieyra note:LIPASE revised reference range effective 22.New Lipase methodology. Expected to produce lower valuesthan the previous assay method.NEW Reference Range: 13 - 75 U/L Performed By: #### L 500.4050, L501.2450, L100.0100, L503.6005 ####[facility] [address] [place], [address] Lipase measurementOrdered By : Jerry Hightower on 10-24-2024 Lipase [Catalytic activity/Vol] 28 U/L 13-75 [facility] Comment on above: Please note:LIPASE r evised reference range effective 22. New Lipase methodology. Expected to produce lower values than the previous assay method. NEW Reference Range: 13 - 75 U/L Lymphocytes Auto (Unsp spec) [#/Vol]Ordered By: Jerry Hightower on 10-24-2024 Lymphocytes (Bld) [#/Vol] 1.10 10*3/uL 0.83-4.51 [facility] Lymphocytes Auto (Unsp spec) [#/Vol]Ordered By: Papi Hernandez on 10-24-2024 Lymphocytes (Bld) [#/Vol] 1.26 10*3/uL 0.83-4.51 [facility] Lymphocytes/100 WBC Auto (Un sp spec)Ordered By: Jerry Hightower on 10-24-2024 Lymphocytes/100 WBC (Bld) 12.7 % Low 19-41 [facility] Lymphocytes/100 WBC Auto (Un sp spec)Ordered By: Papi Hernandez on 10-24-2024 Lymphocytes/100 WBC (Bld) 14.4 % Low 19-[address] [place] [address] MCV (mean corpuscular volume ) determinationOrdered By: Jerry Hightower on 10-24-2024 MCV (RBC) [Entitic vol] 87.1 fL 80-94 [facility] MCV (mean corpuscular volume ) determinationOrdered By: Papi Hernandez on 10-24-2024 MCV (RBC) [Entitic vol] 88.8 fL 80-94 [facility] Mean corpuscular hemoglobin (MCH) determinationOrdered By: Jerry Hightower on 10-24-2024 MCH (RBC) [Entitic mass] 30.8 pg 27.0-32.0 [facility] Mean corpuscular hemoglobin (MCH) determinationOrdered By: Papi Hernandez on 10-24-2024 MCH (RBC) [Entitic mass] 30.8 pg 27.0-32.0 [facility] Mean corpuscular hemoglobin concentration (MCHC) determinationOrdered By: Jerry Hightower on 10-24-2024 MCHC (RBC) [Mass/Vol] 35.4 g/dL [facility] Mean corpuscular hemoglobin concentration (MCHC) determinationOrdered By: Papi Hernandez on 10-24-2024 MCHC (RBC) [Mass/Vol] 34.7 g/dL [facility] Mean platelet volume determi nationOrdered By: Jerry Hightower on 10-24-2024 Platelet mean volume (Bld) [Entitic vol] 9.0 fL 6.2-12.0 [facility] Mean platelet volume determi nationOrdered By: Papi Hernandez on 10-24-2024 Platelet mean volume (Bld) [Entitic vol] 8.8 fL 6.2-12.0 [facility] Microscopic analysis of urin e for red blood cells (RBC)Ordered By: Jerry Hightower on 10-24-2024 Microscopic analysis of urine for red blood cells (RBC) 0-5 SEEN /hpf 0-5 [facility] Urine RBC 0-5 SEEN /hpf 0-5 [facility] Miscellaneous procedureOrder ed By: Papi Hernandez on 10-24-2024 Miscellaneous Test Comment SEE SCANNED REPORT [facility] Monocyte percentageOrdered B y: Jerry Hightower on 10-24-2024 Monocytes/100 WBC (Bld) 8.4 % 0-10 [facility] Monocyte percentageOrdered B y: Papi Hernandez on 10-24-2024 Monocytes/100 WBC (Bld) 9.7 % 0-10 [facility] Mucus LM Ql (Urine sed)Order ed By: Jerry Hightower on 10-24-2024 Mucus Ql (Urine sed) 0 SEEN /hpf [facility] NATERAon 10-24-2024 NATURA SEE SCANNED REPORT Normal [facility] Comment on above: Performed By: #### L 900.0098, L504.2610, L100.0100, L500.4050 ####[facility] [address] [place], [address] Neutrophil percentageOrdered By: Jerry Hightower on 10-24-2024 Neutrophils/100 WBC (Bld) 77.1 % High 47-70 [facility] Neutrophil percentageOrdered By: Papi Hernandez on 10-24-2024 Neutrophils/100 WBC (Bld) 73.8 % High 47-70 [facility] Nitrite Test strip Ql (U)Ord ered By: Jerry Hightower on 10-24-2024 Nitrite Ql (U) Negative Negative [facility] No Panel InformationOrdered By: Jerry Hightower on 10-24-2024 27 U/L <38 [facility] No Panel InformationOrdered By: Papi Hernandez on 10-24-2024 27 U/L <38 [facility] Nucleated red blood cell per centageOrdered By: Jerry Hightower on 10-24-2024 Nucleated RBC/100 WBC (Bld) [Ratio] 0 % 0-5 [facility] Nucleated red blood cell per centageOrdered By: Papi Hernandez on 10-24-2024 Nucleated RBC/100 WBC (Bld) [Ratio] 0 % 0-5 [facility] Platelet countOrdered By: Avinash Hightower on 10-24-2024 Platelets (Bld) [#/Vol] 307 10*3/uL 150-450 [facility] Platelet countOrdered By: Santa Hernandez on 10-24-2024 Platelets (Bld) [#/Vol] 299 10*3/uL 150-450 [facility] Potassium (Unsp spec) [Mass/ Vol]Ordered By: Jrery Hightower on 10-24-2024 Potassium [Moles/Vol] 3.8 mmol/L 3.3-5.1 [facility] Potassium (Unsp spec) [Mass/ Vol]Ordered By: Papi Hernandez on 10-24-2024 Potassium [Moles/Vol] 4.2 mmol/L 3.3-5.1 [facility] Potassium measurement (mass/ volume)Ordered By: Jerry Hightower on 10-24-2024 Potassium (Unsp spec) [Mass/Vol] 3.8 mmol/L 3.3-5.1 [facility] Potassium measurement (mass/ volume)Ordered By: Papi Hernandez on 10-24-2024 Potassium (Unsp spec) [Mass/Vol] 4.2 mmol/L 3.3-5.1 [facility] Protein Test strip Ql (U)Ord ered By: Jerry Hightower on 10-24-2024 Protein Ql (U) 15 mg/dl High Negative [facility] RBC Auto (Bld) [#/Vol]Ordere d By: Jerry Hightower on 10-24-2024 RBC (Bld) [#/Vol] 4.25 10*6/uL Low 4.6-6.2 [facility] RBC Auto (Bld) [#/Vol]Ordere d By: Papi eHrnandez on 10-24-2024 RBC (Bld) [#/Vol] 4.28 10*6/uL Low 4.6-6.2 [facility] Serum creatinine measurement (mass/volume)Ordered By: Jerry Hightower on 10-24-2024 Creatinine [Mass/Vol] 0.94 mg/dL 0.70-1.20 [facility] Serum creatinine measurement (mass/volume)Ordered By: Papi Hernandez on 10-24-2024 Creatinine [Mass/Vol] 0.90 mg/dL 0.70-1.20 [facility] Serum globulin measurementOr dered By: Jerry Hightower on 10-24-2024 Globulin (S) [Mass/Vol] 3.0 g/dL 2.2-4.2 [facility] Serum globulin measurementOr dered By: Papi Hernandez on 10-24-2024 Globulin (S) [Mass/Vol] 2.9 g/dL 2.2-4.2 [facility] Serum glucose measurement (m ass/volume)Ordered By: Jerry Hightower on 10-24-2024 Glucose [Mass/Vol] 105 mg/dL High 70-99 [facility] Serum glucose measurement (m ass/volume)Ordered By: Papi Henrandez on 10-24-2024 Glucose [Mass/Vol] 107 mg/dL High 70-99 [facility] Serum or plasma alanine carrion otransferase (ALT) measurementOrdered By: Jerry Hightower on 10-24-2024 ALT [Catalytic activity/Vol] 17 U/L <47 [facility] Serum or plasma alanine carrion otransferase (ALT) measurementOrdered By: Papi Hernandez on 10-24-2024 ALT [Catalytic activity/Vol] 16 U/L <47 [facility] Serum or plasma albumin shagufta urement (mass/volume)Ordered By: Jerry Hightower on 10-24-2024 Albumin [Mass/Vol] 4.3 g/dL 3.4-4.8 [facility] Serum or plasma albumin shagufta urement (mass/volume)Ordered By: Papi Hernandez on 10-24-2024 Albumin [Mass/Vol] 4.2 g/dL 3.4-4.8 [facility] Serum or plasma albumin/glob ulin mass ratioOrdered By: Jerry Hightower on 10-24-2024 Albumin/Globulin [Mass ratio] 1.4 {ratio} 0.9-2.4 [facility] Serum or plasma albumin/glob ulin mass ratioOrdered By: Papi Hernandez on 10-24-2024 Albumin/Globulin [Mass ratio] 1.4 {ratio} 0.9-2.4 [facility] Serum or plasma alkaline airam sphatase measurementOrdered By: Jerry Hightower on 10-24-2024 ALP [Catalytic activity/Vol] 103 U/L 40-129 [facility] Serum or plasma alkaline airam sphatase measurementOrdered By: Papi Hernandez on 10-24-2024 ALP [Catalytic activity/Vol] 100 U/L 40-129 [facility] Serum or plasma calcium shagufta urement (mass/volume)Ordered By: Jerry Hightower on 10-24-2024 Calcium [Mass/Vol] 9.2 mg/dL 7.6-11.0 [facility] Serum or plasma calcium shagufta urement (mass/volume)Ordered By: Papi Hernandez on 10-24-2024 Calcium [Mass/Vol] 9.2 mg/dL 7.6-11.0 [facility] Serum or plasma carcinoembry onic antigen measurement (mass/volume)Ordered By: Papi Hernandez on 10-24-2024 Carcinoembryonic Ag [Mass/Vol] 25.2 ng/mL High 0.0-4.7 [facility] Comment on above: Nonsmokers <3.9 Smok ers <5.6[employer] Electrochemiluminescence Immunoassay(ECLIA)Values obtained with different assay methods or kitscannot be used interchangeably. Results cannot beinterpreted as absolute evidence of the presence orabsence of malignant disease.Performed at: [facility] [id number] Director: Jian Paredes PhD, Phone: [phone] Serum or plasma urea nitroge n measurement (mass/volume)Ordered By: Jerry Hightower on 10-24-2024 Urea nitrogen [Mass/Vol] 11 mg/dL 11-17 [facility] Serum or plasma urea nitroge n measurement (mass/volume)Ordered By: Papi Hernandez on 10-24-2024 Urea nitrogen [Mass/Vol] 11 mg/dL 11-17 [facility] Sodium levelOrdered By: Natalie Hightower on 10-24-2024 Sodium [Moles/Vol] 130 mmol/L Low 133-145 [facility] Sodium levelOrdered By: Stephan Hernandez on 10-24-2024 Sodium [Moles/Vol] 131 mmol/L Low 133-145 [facility] Squamous epithelial cells de tection in urine sediment by light microscopyOrdered By: Jerry Hightower on 10-24-2024 Epithelial cells.squamous LM Ql (Urine sed) 0-5 SEEN /hpf 0-5 [facility] Testicular with Arterial Tommy won 10-24-2024 Testicular with Arterial Flow Normal [facility] Total proteinOrdered By: Renay Hightower on 10-24-2024 Protein [Mass/Vol] 7.3 g/dL 5.9-8.4 [facility] Total proteinOrdered By: Thang Hernandez on 10-24-2024 Protein [Mass/Vol] 7.0 g/dL 5.9-8.4 [facility] Urinalysis, Completeon 10-24 EPI,SQUAMOUS 0-5 SEEN Normal 0-5 [facility] Comment on above: Order Comment: CLEAN CATCH Performed By: #### L 400.0001 ####[facility] [address] [place], [address] RBC 0-5 SEEN Normal 0-5 [facility] Comment on above: Order Comment: CLEAN CATCH Performed By: #### L 400.0001 ####[facility] [address] [place], [address] BACTERIA 0 SEEN Normal None Seen [facility] Comment on above: Order Comment: CLEAN CATCH Performed By: #### L 400.0001 ####[facility] [address] [place], [address] Mucus Ql (Urine sed) 0 SEEN Normal [facility] Comment on above: Order Comment: CLEAN CATCH Performed By: #### L 400.0001 ####[facility] [address] [place], [address] WBC 0 SEEN Normal 0-5 [facility] Comment on above: Order Comment: CLEAN CATCH Performed By: #### L 400.0001 ####[facility] [address] [place], [address] Urine blood detectionOrdered By: Jerry Hightower on 10-24-2024 Urine Occult Blood Negative Negative [facility] Urine clarityOrdered By: Renay Hightower on 10-24-2024 Clarity (U) Clear Clear [facility] Urine color determinationOrd ered By: Jerry Hightower on 10-24-2024 Color (U) Straw Yellow [facility] Urine glucose detectionOrder ed By: Jerry Hightower on 10-24-2024 Glucose Ql (U) Normal mg/dl Normal [facility] Urine leukocyte esterase det ection by dipstickOrdered By: Jerry Hightower on 10-24-2024 Leukocyte esterase Test strip Ql (U) Negative Negative [facility] Urine pHOrdered By: Jerry garza on 10-24-2024 pH (U) 8.0 [pH] 5.0 - 8.0 [facility] Urine sediment bacteria coun t by microscopy (number/high power field)Ordered By: Jerry Hightower on 10-24-2024 Bacteria LM.HPF (Urine sed) [#/Area] 0 /[HPF] None Seen [facility] Urine specific gravity measu rementOrdered By: Jerry Hightower on 10-24-2024 Specific gravity (U) [Rel density] 1.010 1.002-1.030 [facility] Urine urobilinogen measureme ntOrdered By: Jerry Hightower on 10-24-2024 Urobilinogen Ql (U) Normal mg/dl Normal [facility] Urobilinogen Ql (U)Ordered B y: Jerry Hightower on 10-24-2024 Urine Urobilinogen Normal mg/dl Normal [facility] White blood cell (WBC) count Ordered By: Jerry Hightower on 10-24-2024 WBC (Bld) [#/Vol] 8.7 10*3/uL 4.4-11.0 [facility] White blood cell (WBC) count Ordered By: Papi Hernandez on 10-24-2024 WBC (Bld) [#/Vol] 8.8 10*3/uL 4.4-11.0 [facility] White blood cell countOrdere d By: Jerry Hightower on 10-24-2024 Urine WBC 0 SEEN /hpf 0-5 [facility] White blood cell count 0 SEEN /hpf 0-5 [facility] Amorphous sediment detection in urine sediment by light microscopyOrdered By: Malinda Webster on 10-17-2024 Amorphous sediment LM Ql (Urine sed) 3+ [facility] Anion gap in Serum or Plasma Ordered By: Malinda Webster on 10-17-2024 Anion gap [Moles/Vol] 9 mmol/L 5-15 [facility] BUN/creatinine ratioOrdered By: Malinda Webster on 10-17-2024 Urea nitrogen/Creatinine [Mass ratio] 15.2 mg/mg 10- [facility] Basic Metabolic Profile (BMP )on 10-17-2024 BUN/CRE 15.2 RATIO Normal - [facility] Comment on above: Performed By: #### L 500.2500, L400.0001 ####[facility] [address] [place], [address] Calcium [Mass/Vol] 9.7 mg/dL Normal 7.6-11.0 [facility] Comment on above: Performed By: #### L 500.2500, L400.0001 ####[facility] [address] [place], [address] Chloride [Moles/Vol] 93 mmol/L Low 98-108 [facility] Comment on above: Performed By: #### L 500.2500, L400.0001 ####[facility] [address] [place], [address] CO2 [Moles/Vol] 27.4 mmol/L Normal 21.0-32.0 [facility] Comment on above: Performed By: #### L 500.2500, L400.0001 ####[facility] [address] [place], [address] Creatinine [Mass/Vol] 1.06 mg/dL Normal 0.70-1.20 [facility] Comment on above: Performed By: #### L 500.2500, L400.0001 ####[facility] [address] [place], [address] GAP 9 Normal 5-15 [facility] Comment on above: Performed By: #### L 500.2500, L400.0001 ####[facility] [address] [place], [address] GFR/1.73 sq M.predicted among non-blacks MDRD (S/P/Bld) [Vol rate/Area] 71 mL/min/{1.73_m2} Normal >60 [facility] Comment on above: Result Comment: mL/m in/1.73m2 CKD-EPI Creatinine Equation (2020) Performed By: #### L 500.2500, L400.0001 ####[facility] [address] [place], [address] Glucose [Mass/Vol] 100 mg/dL High 70-99 [facility] Comment on above: Performed By: #### L 500.2500, L400.0001 ####[facility] [address] [place], [address] Potassium [Moles/Vol] 4.5 mmol/L Normal 3.3-5.1 [facility] Comment on above: Performed By: #### L 500.2500, L400.0001 ####[facility] [address] [place], [address] Sodium [Moles/Vol] 130 mmol/L Low 133-145 [facility] Comment on above: Performed By: #### L 500.2500, L400.0001 ####[facility] [address] [place], [address] Urea nitrogen [Mass/Vol] 16 mg/dL Normal -19 [facility] Comment on above: Performed By: #### L 500.2500, L400.0001 ####[facility] [address] [place], [address] Bilirubin Test strip Ql (U)O rdered By: Malinda Webster on 10-17-2024 Bilirubin Ql (U) Negative Negative [facility] Carbon dioxide, total [Moles /volume] in Central venous bloodOrdered By: Malinda Webster on 10-17-2024 CO2 [Moles/Vol] 27.4 mmol/L 21.0-32.0 [facility] Cardiology Visit Reporton Cardiology Visit Report Normal [facility] Chloride assayOrdered By: Santa Webster on 10-17-2024 Chloride [Moles/Vol] 93 mmol/L Low 98-108 [facility] Epithelial cells.squamous LM Ql (Urine sed)Ordered By: Malinda Webster on 10-17-2024 Epithelial cells.squamous LM.HPF (Urine sed) [#/Area] 0 /[HPF] 0-5 [facility] GFR/1.73 sq M.predicted gregg g non-blacks MDRD (S/P/Bld) [Vol rate/Area]Ordered By: Malinda Webster on 10-17-2024 Estimated GFR (MDRD) Non-Af Amer 71 >60 [facility] Comment on above: mL/min/1.73m2 CKD-EP I Creatinine Equation (2020) Glomerular filtration rate ( GFR) estimation/1.73 sq m using serum, plasma, or whole bOrdered By: Malinda Webster on 10-17-2024 GFR/1.73 sq M.predicted among non-blacks MDRD (S/P/Bld) [Vol rate/Area] 71 mL/min/{1.73_m2} >60 [facility] Comment on above: mL/min/1.73m2 CKD-EP I Creatinine Equation (2020) Glucose Ql (U)Ordered By: Santa Webster on 10-17-2024 Urine Glucose (UA) Normal mg/dl Normal [facility] Ketones Test strip Ql (U)Ord ered By: Malinda Webster on 10-17-2024 Ketones Ql (U) Negative Negative [facility] Microscopic analysis of urin e for red blood cells (RBC)Ordered By: Malinda Webster on 10-17-2024 Microscopic analysis of urine for red blood cells (RBC) 0 SEEN /hpf 0-5 [facility] Urine RBC 0 SEEN /hpf 0-5 [facility] Mucus LM Ql (Urine sed)Order ed By: Malinda Webster on 10-17-2024 Mucus Ql (Urine sed) 0 SEEN /hpf [facility] Nitrite Test strip Ql (U)Ord ered By: Malinda Webster on 10-17-2024 Nitrite Ql (U) Negative Negative [facility] Potassium (Unsp spec) [Mass/ Vol]Ordered By: Malinda Webster on 10-17-2024 Potassium [Moles/Vol] 4.5 mmol/L 3.3-5.1 [facility] Potassium measurement (mass/ volume)Ordered By: Malinda Webster on 10-17-2024 Potassium (Unsp spec) [Mass/Vol] 4.5 mmol/L 3.3-5.1 [facility] Protein Test strip Ql (U)Ord ered By: Malinda Webster on 10-17-2024 Protein Ql (U) 30 mg/dl High Negative [facility] Serum creatinine measurement (mass/volume)Ordered By: Malinda Webster on 10-17-2024 Creatinine [Mass/Vol] 1.06 mg/dL 0.70-1.20 [facility] Serum glucose measurement (m ass/volume)Ordered By: Malinda Webster on 10-17-2024 Glucose [Mass/Vol] 100 mg/dL High 70-99 [facility] Serum or plasma calcium shagufta urement (mass/volume)Ordered By: Malinda Websetr on 10-17-2024 Calcium [Mass/Vol] 9.7 mg/dL 7.6-11.0 [facility] Serum or plasma urea nitroge n measurement (mass/volume)Ordered By: Malinda Webster on 10-17-2024 Urea nitrogen [Mass/Vol] 16 mg/dL 4-19 [facility] Sodium levelOrdered By: Malinda Webster on 10-17-2024 Sodium [Moles/Vol] 130 mmol/L Low 133-145 [facility] Squamous epithelial cells de tection in urine sediment by light microscopyOrdered By: Malinda Webster on 10-17-2024 Epithelial cells.squamous LM Ql (Urine sed) 0 SEEN /hpf 0-5 [facility] Urinalysis, Completeon 10-17 AMORPHOUS 3+ Normal [facility] Comment on above: Order Comment: BOB CTOR TO SPECIFY Performed By: #### L 500.2500, L400.0001 ####[facility] [address] [place], [address] BACTERIA 2+ /hpf Normal None Seen [facility] Comment on above: Order Comment: BOB CTOR TO SPECIFY Performed By: #### L 500.2500, L400.0001 ####[facility] [address] [place], [address] RBC 0 SEEN Normal 0-5 [facility] Comment on above: Order Comment: BOB CTOR TO SPECIFY Performed By: #### L 500.2500, L400.0001 ####[facility] [address] [place], [address] EPI,SQUAMOUS 0 SEEN Normal 0-5 [facility] Comment on above: Order Comment: BOB CTOR TO SPECIFY Performed By: #### L 500.2500, L400.0001 ####[facility] [address] [place], [address] Mucus Ql (Urine sed) 0 SEEN Normal [facility] Comment on above: Order Comment: BOB CTOR TO SPECIFY Performed By: #### L 500.2500, L400.0001 ####[facility] [address] [place], [place], [address] WBC 0 SEEN Normal 0-5 [facility] Comment on above: Order Comment: BOB CTOR TO SPECIFY Performed By: #### L 500.2500, L400.0001 ####[facility] [address] [place], [place], [id number] Urine blood detectionOrdered By: Malinda Webster on 10-17-2024 Urine Occult Blood Negative Negative [facility] Urine clarityOrdered By: Marcelo Webster on 10-17-2024 Clarity (U) Sl. Cloudy Clear [facility] Urine color determinationOrd ered By: Malinda Webster on 10-17-2024 Color (U) Yellow Yellow [facility] Urine glucose detectionOrder ed By: Malinda Webster on 10-17-2024 Glucose Ql (U) Normal mg/dl Normal [facility] Urine leukocyte esterase det ection by dipstickOrdered By: Malinda Webster on 10-17-2024 Leukocyte esterase Test strip Ql (U) Negative Negative [facility] Urine pHOrdered By: Malinda vallejo on 10-17-2024 pH (U) 8.0 [pH] 5.0 - 8.0 [facility] Urine sediment bacteria coun t by microscopy (number/high power field)Ordered By: Malinda Webster on 10-17-2024 Bacteria LM.HPF (Urine sed) [#/Area] 2 /[HPF] None Seen [facility] Urine specific gravity measu rementOrdered By: Malinda Webster on 10-17-2024 Specific gravity (U) [Rel density] 1.015 1.002-1.030 [facility] Urine urobilinogen measureme ntOrdered By: Malinda Webster on 10-17-2024 Urobilinogen Ql (U) Normal mg/dl Normal [facility] Urobilinogen Ql (U)Ordered B y: Malinda Webster on 10-17-2024 Urine Urobilinogen Normal mg/dl Normal [facility] White blood cell countOrdere d By: Malinda Webster on 10-17-2024 Urine WBC 0 SEEN /hpf 0-5 [facility] White blood cell count 0 SEEN /hpf 0-5 [facility] Absolute lymphocyte countOrd ered By: Mariela Shahram on 09-05-2024 Lymphocytes Auto (Unsp spec) [#/Vol] 1.41 10*3/uL 0.83-4.51 [facility] Absolute neutrophil countOrd ered By: [facility] on 09-05-2024 Neutrophils (Bld) [#/Vol] 4.1 10*3/uL 2.0-7.7 [facility] Albumin to globulin ratioOrd ered By: [facility] on 09-05-2024 Albumin/Globulin [Mass ratio] 1.0 {ratio} 0.9-2.4 [facility] Automated lymphocyte count a s percentage of total leukocytesOrdered By: [facility] Lymphocytes/100 WBC Auto (Unsp spec) 22.2 % 19-41 [facility] Basophil percentageOrdered B y: [facility] on 09-05-2024 Basophils/100 WBC (Bld) 0.3 % 0-1 [facility] Bilirubin, totalOrdered By: [facility] on 09-05-2024 Bilirubin [Mass/Vol] 0.80 mg/dL 0.20-1.00 [facility] Comment on above: For patients on eltr ombopag therapy, use of Dimension [place] TBIL is not recommended. Blood urea nitrogen (BUN)/cr eatinine ratioOrdered By: [facility] on 09-05-2024 Urea nitrogen/Creatinine [Mass ratio] 13.0 mg/mg 10-20 [facility] CBC W/Diff, Automatedon Absolute Lymph 1.41 X10 3/uL Normal 0.83-4.51 [facility] Comment on above: Performed By: #### L 500.4050, L100.0100 ####[facility] [address] [place], [place], [address] Absolute Neut 4.1 X10 3/uL Normal 2.0-7.7 [facility] Comment on above: Performed By: #### L 500.4050, L100.0100 ####[facility] [address] [place], [address] Basophils/100 WBC (Bld) 0.3 % Normal 0-1 [facility] Comment on above: Performed By: #### L 500.4050, L100.0100 ####[facility] [address] [place], [address] Eosinophils/100 WBC (Bld) 3.1 % Normal 0-5 [facility] Comment on above: Performed By: #### L 500.4050, L100.0100 ####[facility] [address] [place], [address] Erythrocyte distribution width (RBC) [Ratio] 13.3 % Normal 11.6-14.6 [facility] Comment on above: Performed By: #### L 500.4050, L100.0100 ####[facility] [address] [place], [address] Hematocrit (Bld) [Volume fraction] 39.9 % Low 40-54 [facility] Comment on above: Performed By: #### L 500.4050, L100.0100 ####[facility] [address] [place], [address] Hemoglobin (Bld) [Mass/Vol] 13.3 g/dL Normal 13.0-16.5 [facility] Comment on above: Performed By: #### L 500.4050, L100.0100 ####[facility] [address] [place], [address] IG% 0.200 Normal 0.0-0.9 [facility] Comment on above: Result Comment: IG% - Immature Granulocytes (promyelocytes, myelocytes andmetamyelocytes) > 1% indicates that a LEFT SHIFT is Present. Performed By: #### L 500.4050, L100.0100 ####[facility] [address] [place], [address] Lymphocytes/100 WBC (Bld) 22.2 % Normal 19-41 [facility] Comment on above: Performed By: #### L 500.4050, L100.0100 ####[facility] [address] [place], [address] MCH (RBC) [Entitic mass] 29.6 pg Normal 27.0-32.0 [facility] Comment on above: Performed By: #### L 500.4050, L100.0100 ####[facility] [address] [place], [address] MCHC (RBC) [Mass/Vol] 33.3 g/dL Normal 32-36 [facility] Comment on above: Performed By: #### L 500.4050, L100.0100 ####[facility] [address] [place], [address] MCV (RBC) [Entitic vol] 88.7 fL Normal 80-94 [facility] Comment on above: Performed By: #### L 500.4050, L100.0100 ####[facility] [address] [place], [address] Monocytes/100 WBC (Bld) 10.2 % High 0-10 [facility] Comment on above: Performed By: #### L 500.4050, L100.0100 ####[facility] [address] [place], [address] Neutrophils/100 WBC (Bld) 64.0 % Normal 47-70 [facility] Comment on above: Performed By: #### L 500.4050, L100.0100 ####[facility] [address] [place], [address] Nucleated RBC (Bld) [#/Vol] 0 10*3/uL Normal 0-5 [facility] Comment on above: Performed By: #### L 500.4050, L100.0100 ####[facility] [address] [place], [address] Platelet mean volume (Bld) [Entitic vol] 9.8 fL Normal 6.2-12.0 [facility] Comment on above: Performed By: #### L 500.4050, L100.0100 ####[facility] [address] [place], [address] Platelets (Bld) [#/Vol] 274 10*3/uL Normal 150-450 [facility] Comment on above: Performed By: #### L 500.4050, L100.0100 ####[facility] [address] [place], [address] RBC (Bld) [#/Vol] 4.50 10*6/uL Low 4.6-6.2 [facility] Comment on above: Performed By: #### L 500.4050, L100.0100 ####[facility] [address] [place], [address] RDW SD 43.2 fl Normal 35.1-43.9 [facility] Comment on above: Performed By: #### L 500.4050, L100.0100 ####[facility] [address] [place], [address] WBC (Bld) [#/Vol] 6.4 10*3/uL Normal 4.4-11.0 [facility] Comment on above: Performed By: #### L 500.4050, L100.0100 ####[facility] [address] [place], [address] Carbon dioxide measurementOr dered By: Mariela Olson on 09-05-2024 CO2 [Moles/Vol] 30.0 mmol/L 21.0-32.0 [facility] Chloride measurementOrdered By: Mariela Olson on 09-05-2024 Chloride [Moles/Vol] 98 mmol/L 98-107 [facility] Comprehensive Metabolic Prof ilon 09-05-2024 Albumin [Mass/Vol] 3.8 g/dL Normal 3.2-5.0 [facility] Comment on above: Performed By: #### L 500.4050, L100.0100 ####[facility] [address] [place], [address] Albumin/Globulin [Mass ratio] 1.0 {ratio} Normal 0.9-2.4 [facility] Comment on above: Performed By: #### L 500.4050, L100.0100 ####[facility] [address] [place], [address] ALK P 106 U/L Normal 45-117 [facility] Comment on above: Performed By: #### L 500.4050, L100.0100 ####[facility] [address] [place], [address] ALT [Catalytic activity/Vol] 30 U/L Normal 16-61 [facility] Comment on above: Performed By: #### L 500.4050, L100.0100 ####[facility] [address] [place], [address] AST [Catalytic activity/Vol] 27 U/L Normal 15-37 [facility] Comment on above: Performed By: #### L 500.4050, L100.0100 ####[facility] [address] [place], [address] Bilirubin [Mass/Vol] 0.80 mg/dL Normal 0.20-1.00 [facility] Comment on above: Result Comment: For patients on eltrombopag therapy, use of Dimension [place] TBIL is not recommended. Performed By: #### L 500.4050, L100.0100 ####[facility] [address] [place], [address] BUN/CRE 13.0 RATIO Normal 10-20 [facility] Comment on above: Performed By: #### L 500.4050, L100.0100 ####[facility] [address] [place], [address] CA,Total 9.8 mg/dL Normal 8.5-10.1 [facility] Comment on above: Performed By: #### L 500.4050, L100.0100 ####[facility] [address] [place], [address] Chloride [Moles/Vol] 98 mmol/L Normal 98-107 [facility] Comment on above: Performed By: #### L 500.4050, L100.0100 ####[facility] [address] [place], [address] CO2 [Moles/Vol] 30.0 mmol/L Normal 21.0-32.0 [facility] Comment on above: Performed By: #### L 500.4050, L100.0100 ####[facility] [address] [place], [address] Creatinine [Mass/Vol] 1.23 mg/dL Normal 0.70-1.30 [facility] Comment on above: Result Comment: The validity of the calculated GFR GFRAA in patients over70 years has not been determined. Clinical correlation isessential. Performed By: #### L 500.4050, L100.0100 ####[facility] [address] [place], [address] EST GFR - AA 73 mL/min Normal >60 [facility] Comment on above: Result Comment: Afri can [place] GFR Calc Performed By: #### L 500.4050, L100.0100 ####[facility] [address] [place], [address] GAP 7 Normal 5-15 [facility] Comment on above: Performed By: #### L 500.4050, L100.0100 ####[facility] [address] [place], [address] GFR/1.73 sq M.predicted among non-blacks MDRD (S/P/Bld) [Vol rate/Area] 60 mL/min/{1.73_m2} Normal >60 [facility] Comment on above: Result Comment: Non- GFR Calc Performed By: #### L 500.4050, L100.0100 ####[facility] [address] [place], [address] Globulin (S) [Mass/Vol] 3.7 g/dL Normal 2.2-4.2 [facility] Comment on above: Performed By: #### L 500.4050, L100.0100 ####[facility] [address] [place], [address] Glucose [Mass/Vol] 99 mg/dL Normal 74-106 [facility] Comment on above: Performed By: #### L 500.4050, L100.0100 ####[facility] [address] [place], [address] Potassium [Moles/Vol] 4.3 mmol/L Normal 3.5-5.1 [facility] Comment on above: Performed By: #### L 500.4050, L100.0100 ####[facility] [address] [place], [address] Sodium [Moles/Vol] 135 mmol/L Low 136-145 [facility] Comment on above: Performed By: #### L 500.4050, L100.0100 ####[facility] [address] [place], [address] T PROT 7.5 g/dL Normal 6.4-8.2 [facility] Comment on above: Performed By: #### L 500.4050, L100.0100 ####[facility] [address] [place], [place], [address] Urea nitrogen [Mass/Vol] 16 mg/dL Normal 7-18 [facility] Comment on above: Performed By: #### L 500.4050, L100.0100 ####[facility] [address] [place], [address] Eosinophil percentageOrdered By: Marielabruce Olson on 09-05-2024 Eosinophils/100 WBC (Bld) 3.1 % 0-5 [facility] Erythrocyte distribution wid th ratioOrdered By: [facility] 09-[facility]-2024 Erythrocyte distribution width (RBC) [Ratio] 13.3 % 11.6-14.6 [facility] Erythrocyte distribution wid th standard deviationOrdered By: Mariela Shahram on 09-05-2024 Erythrocyte distribution width (RBC) [Entitic vol] 43.2 fL 35.1-43.9 [facility] Erythrocyte distribution width (RBC) [Ratio] 43.2 fl 35.1-43.9 [facility] Estimated glomerular filtrat ion rate (GFR) AmericanOrdered By: Marielabruce Olson on 09-05-2024 Estimated GFR (MDRD) Amer 73 mL/min >60 [facility] Comment on above: GFR Calc Glomerular filtration rate ( GFR) estimationOrdered By: Mariela Olson on 09-05-2024 Estimated GFR (MDRD) Non-Af Amer 60 mL/min >60 [facility] Comment on above: Non- GFR Calc GFR/1.73 sq M.predicted among non-blacks MDRD (S/P/Bld) [Vol rate/Area] 60 mL/min/{1.73_m2} >60 [facility] Comment on above: Non- GFR Calc Glucose measurementOrdered B y: Mariela Olson on 09-05-2024 Glucose [Mass/Vol] 99 mg/dL 74-106 [facility] Hematocrit Auto (Bld) [Volum e fraction]Ordered By: Mariela Olson on 09-05-2024 Hematocrit (Bld) [Volume fraction] 39.9 % Low 40-54 [facility] Hemoglobin measurementOrdere d By: Mariela Olson on 09-05-2024 Hemoglobin (Bld) [Mass/Vol] 13.3 g/dL 13.0-16.5 [facility] Immature granulocytes/100 WB C Auto (Bld)Ordered By: Mariela Olson on 09-05-2024 Immature granulocytes/100 WBC (Bld) 0.200 % 0.0-0.9 [facility] Comment on above: IG% - Immature Granu locytes (promyelocytes, myelocytes and metamyelocytes) > 1% indicates that a LEFT SHIFT is Present. Laboratory - Chemistry and C hemistry - challengeOrdered By: Mariela Olson on 09-05-2024 AST [Catalytic activity/Vol] 27 U/L 15-37 [facility] Lymphocytes Auto (Unsp spec) [#/Vol]Ordered By: Marielabruce Olson on 09-05-2024 Lymphocytes (Bld) [#/Vol] 1.41 10*3/uL 0.83-4.51 [facility] Lymphocytes/100 WBC Auto (Un sp spec)Ordered By: Mariela Olson on 09-05-2024 Lymphocytes/100 WBC (Bld) 22.2 % 19-41 [facility] MCV (mean corpuscular volume ) determinationOrdered By: Mariela Olson on 09-05-2024 MCV (RBC) [Entitic vol] 88.7 fL 80-94 [facility] Mean corpuscular hemoglobin (MCH) determinationOrdered By: Mariela Olson on 09-05-2024 MCH (RBC) [Entitic mass] 29.6 pg 27.0-32.0 [facility] Mean corpuscular hemoglobin concentration (MCHC) determinationOrdered By: Marielabruce Olson on 09-05-2024 MCHC (RBC) [Mass/Vol] 33.3 g/dL 32-36 [facility] Mean platelet volume determi nationOrdered By: Mariela Olson on 09-05-2024 Platelet mean volume (Bld) [Entitic vol] 9.8 fL 6.2-12.0 [facility] Monocyte percentageOrdered B y: Mariela Olson on 09-05-2024 Monocytes/100 WBC (Bld) 10.2 % High 0-10 [facility] Neutrophil percentageOrdered By: Mariela Olson on 09-05-2024 Neutrophils/100 WBC (Bld) 64.0 % 47-70 [facility] No Panel InformationOrdered By: Mariela Olson on 09-05-2024 27 U/L 15-37 [facility] Nucleated red blood cell per centageOrdered By: Mariela Olson on 09-05-2024 Nucleated RBC/100 WBC (Bld) [Ratio] 0 % 0-5 [facility] Platelet countOrdered By: Ra caio Olson on 09-05-2024 Platelets (Bld) [#/Vol] 274 10*3/uL 150-450 [facility] Potassium measurementOrdered By: Mariela Olson on 09-05-2024 Potassium [Moles/Vol] 4.3 mmol/L 3.5-5.1 [facility] RBC Auto (Bld) [#/Vol]Ordere d By: Mariela Olson on 09-05-2024 RBC (Bld) [#/Vol] 4.50 10*6/uL Low 4.6-6.2 [facility] Serum anion gap measurementO rdered By: Mariela Olson on 09-05-2024 Anion gap [Moles/Vol] 7 mmol/L 5-15 [facility] Serum globulin measurementOr dered By: Mariela Olson on 09-05-2024 Globulin (S) [Mass/Vol] 3.7 g/dL 2.2-4.2 [facility] Serum or plasma alanine carrion otransferase (ALT) measurementOrdered By: Mariela Olson on 09-05-2024 ALT [Catalytic activity/Vol] 30 U/L 16-61 [facility] Serum or plasma albumin shagufta urement (mass/volume)Ordered By: Mariela Olson on 09-05-2024 Albumin [Mass/Vol] 3.8 g/dL 3.2-5.0 [facility] Serum or plasma alkaline airam sphatase measurementOrdered By: Mariela Olson on 09-05-2024 ALP [Catalytic activity/Vol] 106 U/L 45-117 [facility] Serum or plasma calcium shagufta urement (mass/volume)Ordered By: Mariela Olson 09-05-2024 Calcium [Mass/Vol] 9.8 mg/dL 8.5-10.1 [facility] Serum or plasma creatinine m easurement (mass/volume)Ordered By: Mariela Cifuentesgar on 09-05-2024 Creatinine [Mass/Vol] 1.23 mg/dL 0.70-1.30 [facility] Comment on above: The validity of the calculated GFR & GFRAA in patients over 70 years has not been determined. Clinical correlation is essential. Serum or plasma urea nitroge n measurement (mass/volume)Ordered By: Mariela Olson on 09-05-2024 Urea nitrogen [Mass/Vol] 16 mg/dL 7-18 [facility] Sodium levelOrdered By: An Am el Shahram on 09-05-2024 Sodium [Moles/Vol] 135 mmol/L Low 136-145 [facility] Total proteinOrdered By: Hortencia bruce Shahram on 09-05-2024 Protein [Mass/Vol] 7.5 g/dL 6.4-8.2 [facility] White blood cell (WBC) count Ordered By: Mariela Olson on 09-05-2024 WBC (Bld) [#/Vol] 6.4 10*3/uL 4.4-11.0 [facility] Oncology Visit Reporton Oncology Visit Report Normal [facility] Carcinoembryonic Antigenon 09-19-2023 CEA 6.6 ng/mL High 0.0-4.7 [facility] Comment on above: Result Comment: Nons mokers <3.9 Smokers <5.6[employer] Electrochemiluminescence Immunoassay(ECLIA)Values obtained with different assay methods or kitscannot be used interchangeably. Results cannot beinterpreted as absolute evidence of the presence orabsence of malignant disease.Performed at: [employer] [address] [id number] Director: Jian Paredes PhD, Phone: [phone] Performed By: #### L 500.1672, L100.0100, L3100.3521 ####[facility] [address] [place], [place], [id number] CBC W/Diff, Automatedon 12- Absolute Lymph 1.90 X10 3/uL Normal 0.83-4.51 [facility] Comment on above: Performed By: #### L 500.4050, L100.0100, L3100.2300 ####[facility] [address] [place], [address] Absolute Neut 3.9 X10 3/uL Normal 2.0-7.7 [facility] Comment on above: Performed By: #### L 500.4050, L100.0100, L3100.2300 ####[facility] [address] [place], [address] Basophils/100 WBC (Bld) 0.3 % Normal 0-1 [facility] Comment on above: Performed By: #### L 500.4050, L100.0100, L3100.2300 ####[facility] [address] [place], [address] Eosinophils/100 WBC (Bld) 5.3 % High 0-5 [facility] Comment on above: Performed By: #### L 500.4050, L100.0100, L3100.2300 ####[facility] [address] [place], [address] Erythrocyte distribution width (RBC) [Ratio] 17.1 % High 11.6-14.6 [facility] Comment on above: Performed By: #### L 500.4050, L100.0100, L3100.2300 ####[facility] [address] [place], [address] Hematocrit (Bld) [Volume fraction] 36.4 % Low 40-54 [facility] Comment on above: Performed By: #### L 500.4050, L100.0100, L3100.2300 ####[facility] [address] [place], [address] Hemoglobin (Bld) [Mass/Vol] 11.8 g/dL Low 13.0-16.5 [facility] Comment on above: Performed By: #### L 500.4050, L100.0100, L3100.2300 ####[facility] [address] [place], [address] IG% 0.300 Normal 0.0-0.9 [facility] Comment on above: Result Comment: IG% - Immature Granulocytes (promyelocytes, myelocytes andmetamyelocytes) > 1% indicates that a LEFT SHIFT is Present. Performed By: #### L 500.4050, L100.0100, L3100.2300 ####[facility] [address] [place], [address] Lymphocytes/100 WBC (Bld) 27.4 % Normal 19-41 [facility] Comment on above: Performed By: #### L 500.4050, L100.0100, L3100.2300 ####[facility] [address] [place], [address] MCH (RBC) [Entitic mass] 28.1 pg Normal 27.0-32.0 [facility] Comment on above: Performed By: #### L 500.4050, L100.0100, L3100.2300 ####[facility] [address] [place], [address] MCHC (RBC) [Mass/Vol] 32.4 g/dL Normal 32-36 [facility] Comment on above: Performed By: #### L 500.4050, L100.0100, L3100.2300 ####[facility] [address] [place], [address] MCV (RBC) [Entitic vol] 86.7 fL Normal 80-94 [facility] Comment on above: Performed By: #### L 500.4050, L100.0100, L3100.2300 ####[facility] [address] [place], [address] Monocytes/100 WBC (Bld) 11.1 % High 0-10 [facility] Comment on above: Performed By: #### L 500.4050, L100.0100, L3100.2300 ####[facility] [address] [place], [address] Neutrophils/100 WBC (Bld) 55.6 % Normal 47-70 [facility] Comment on above: Performed By: #### L 500.4050, L100.0100, L3100.2300 ####[facility] [address] [place], [address] Nucleated RBC (Bld) [#/Vol] 0 10*3/uL Normal 0-5 [facility] Comment on above: Performed By: #### L 500.4050, L100.0100, L3100.2300 ####[facility] [address] [place], [address] Platelet mean volume (Bld) [Entitic vol] 9.4 fL Normal 6.2-12.0 [facility] Comment on above: Performed By: #### L 500.4050, L100.0100, L3100.2300 ####[facility] [address] [place], [address] Platelets (Bld) [#/Vol] 230 10*3/uL Normal 150-450 [facility] Comment on above: Performed By: #### L 500.4050, L100.0100, L3100.2300 ####[facility] [address] [place], [address] RBC (Bld) [#/Vol] 4.20 10*6/uL Low 4.6-6.2 [facility] Comment on above: Performed By: #### L 500.4050, L100.0100, L3100.2300 ####[facility] [address] [place], [address] RDW SD 54.4 fl High 35.1-43.9 [facility] Comment on above: Performed By: #### L 500.4050, L100.0100, L3100.2300 ####[facility] [address] [place], [address] WBC (Bld) [#/Vol] 6.9 10*3/uL Normal 4.4-11.0 [facility] Comment on above: Performed By: #### L 500.4050, L100.0100, L3100.2300 ####[facility] [address] [place], [address] Comprehensive Metabolic [facility] 07-18-2024 Albumin [Mass/Vol] 3.6 g/dL Normal 3.2-5.0 [facility] Comment on above: Performed By: #### L 500.4050, L100.0100, L3100.2300 ####[facility] [address] [place], [address] Albumin/Globulin [Mass ratio] 1.0 {ratio} Normal 0.9-2.4 [facility] Comment on above: Performed By: #### L 500.4050, L100.0100, L3100.2300 ####[facility] [address] [place], [address] ALK P 114 U/L Normal 45-117 [facility] Comment on above: Performed By: #### L 500.4050, L100.0100, L3100.2300 ####[facility] [address] [place], [address] ALT [Catalytic activity/Vol] 33 U/L Normal 16-61 [facility] Comment on above: Performed By: #### L 500.4050, L100.0100, L3100.2300 ####[facility] [address] [place], [address] AST [Catalytic activity/Vol] 25 U/L Normal 15-37 [facility] Comment on above: Performed By: #### L 500.4050, L100.0100, L3100.2300 ####[facility] [address] [place], [address] Bilirubin [Mass/Vol] 0.30 mg/dL Normal 0.20-1.00 [facility] Comment on above: Result Comment: For patients on eltrombopag therapy, use of Dimension [place] TBIL is not recommended. Performed By: #### L 500.4050, L100.0100, L3100.2300 ####[facility] [address] [place], [address] BUN/CRE 14.8 RATIO Normal 10-20 [facility] Comment on above: Performed By: #### L 500.4050, L100.0100, L3100.2300 ####[facility] [address] [place], [address] CA,Total 9.0 mg/dL Normal 8.5-10.1 [facility] Comment on above: Performed By: #### L 500.4050, L100.0100, L3100.2300 ####[facility] [address] [place], [address] Chloride [Moles/Vol] 104 mmol/L Normal 98-107 [facility] Comment on above: Performed By: #### L 500.4050, L100.0100, L3100.2300 ####[facility] [address] [place], [address] CO2 [Moles/Vol] 30.0 mmol/L Normal 21.0-32.0 [facility] Comment on above: Performed By: #### L 500.4050, L100.0100, L3100.2300 ####[facility] [address] [place], [address] Creatinine [Mass/Vol] 1.15 mg/dL Normal 0.70-1.30 [facility] Comment on above: Result Comment: The validity of the calculated GFR GFRAA in patients over70 years has not been determined. Clinical correlation isessential. Performed By: #### L 500.4050, L100.0100, L3100.2300 ####[facility] [address] [place], [address] ECRCL 47.90 ml/min Normal [facility] Comment on above: Performed By: #### L 500.4050, L100.0100, L3100.2300 ####[facility] [address] [place], [address] EST GFR - AA 79 mL/min Normal >60 [facility] Comment on above: Result Comment: Afri can [place]an GFR Calc Performed By: #### L 500.4050, L100.0100, L3100.2300 ####[facility] [address] [place], [address] GAP 2 Low 5-15 [facility] Comment on above: Performed By: #### L 500.4050, L100.0100, L3100.2300 ####[facility] [address] [place], [address] GFR/1.73 sq M.predicted among non-blacks MDRD (S/P/Bld) [Vol rate/Area] 65 mL/min/{1.73_m2} Normal >60 [facility] Comment on above: Result Comment: Non- GFR Calc Performed By: #### L 500.4050, L100.0100, L3100.2300 ####[facility] [address] [place], [address] Globulin (S) [Mass/Vol] 3.6 g/dL Normal 2.2-4.2 [facility] Comment on above: Performed By: #### L 500.4050, L100.0100, L3100.2300 ####[facility] [address] [place], [address] Glucose [Mass/Vol] 105 mg/dL Normal 74-106 [facility] Comment on above: Result Comment: Fast ing Glucose result from 100 to 125 mg/dLsuggests IMPAIRED HOMEOSTASIS per A.D.A. criteria. Performed By: #### L 500.4050, L100.0100, L3100.2300 ####[facility] [address] [place], [address] Potassium [Moles/Vol] 4.0 mmol/L Normal 3.5-5.1 [facility] Comment on above: Performed By: #### L 500.4050, L100.0100, L3100.2300 ####[facility] [address] [place], [address] Sodium [Moles/Vol] 136 mmol/L Normal 136-145 [facility] Comment on above: Performed By: #### L 500.4050, L100.0100, L3100.2300 ####[facility] [address] [place], [address] T PROT 7.2 g/dL Normal 6.4-8.2 [facility] Comment on above: Performed By: #### L 500.4050, L100.0100, L3100.2300 ####[facility] [address] [place], [address] Urea nitrogen [Mass/Vol] 17 mg/dL Normal 7-18 [facility] Comment on above: Performed By: #### L 500.4050, L100.0100, L3100.2300 ####[facility] [address] [place], [address] Estimated glomerular filtrat ion rate (GFR) AmericanOrdered By: Papi Hernandez on 07-18-2024 Estimated GFR (MDRD) Amer 79 mL/min >60 [facility] Comment on above: GFR Calc Oncology Visit Reporton 07-01 Oncology Visit Report Normal [facility] CBC W/Diff, Automatedon Absolute Lymph 1.59 X10 3/uL Normal 0.83-4.51 [facility] Comment on above: Performed By: #### L 300.3900, L100.0100 ####[facility] [address] [place], [address] Absolute Neut 3.4 X10 3/uL Normal 2.0-7.7 [facility] Comment on above: Performed By: #### L 300.3900, L100.0100 ####[facility] [address] [place], [address] Basophils/100 WBC (Bld) 0.5 % Normal 0-1 [facility] Comment on above: Performed By: #### L 300.3900, L100.0100 ####[facility] [address] [place], [address] Eosinophils/100 WBC (Bld) 4.7 % Normal 0-5 [facility] Comment on above: Performed By: #### L 300.3900, L100.0100 ####[facility] [address] [place], [address] Erythrocyte distribution width (RBC) [Ratio] 17.5 % High 11.6-14.6 [facility] Comment on above: Performed By: #### L 300.3900, L100.0100 ####[facility] [address] [place], [address] Hematocrit (Bld) [Volume fraction] 36.9 % Low 40-54 [facility] Comment on above: Performed By: #### L 300.3900, L100.0100 ####[facility] [address] [place], [address] Hemoglobin (Bld) [Mass/Vol] 11.5 g/dL Low 13.0-16.5 [facility] Comment on above: Performed By: #### L 300.3900, L100.0100 ####[facility] [address] [place], [address] IG% 0.300 Normal 0.0-0.9 [facility] Comment on above: Result Comment: IG% - Immature Granulocytes (promyelocytes, myelocytes andmetamyelocytes) > 1% indicates that a LEFT SHIFT is Present. Performed By: #### L 300.3900, L100.0100 ####[facility] [address] [place], [address] Lymphocytes/100 WBC (Bld) 26.6 % Normal 19-41 [facility] Comment on above: Performed By: #### L 300.3900, L100.0100 ####[facility] [address] [place], [address] MCH (RBC) [Entitic mass] 27.1 pg Normal 27.0-32.0 [facility] Comment on above: Performed By: #### L 300.3900, L100.0100 ####[facility] [address] [place], [address] MCHC (RBC) [Mass/Vol] 31.2 g/dL Low 32-36 [facility] Comment on above: Performed By: #### L 300.3900, L100.0100 ####[facility] [address] [place], [address] MCV (RBC) [Entitic vol] 87.0 fL Normal 80-94 [facility] Comment on above: Performed By: #### L 300.3900, L100.0100 ####[facility] [address] [place], [address] Monocytes/100 WBC (Bld) 10.5 % High 0-10 [facility] Comment on above: Performed By: #### L 300.3900, L100.0100 ####[facility] [address] [place], [address] Neutrophils/100 WBC (Bld) 57.4 % Normal 47-70 [facility] Comment on above: Performed By: #### L 300.3900, L100.0100 ####[facility] [address] [place], [address] Nucleated RBC (Bld) [#/Vol] 0 10*3/uL Normal 0-5 [facility] Comment on above: Performed By: #### L 300.3900, L100.0100 ####[facility] [address] [place], [address] Platelet mean volume (Bld) [Entitic vol] 9.2 fL Normal 6.2-12.0 [facility] Comment on above: Performed By: #### L 300.3900, L100.0100 ####[facility] [address] [place], [address] Platelets (Bld) [#/Vol] 316 10*3/uL Normal 150-450 [facility] Comment on above: Performed By: #### L 300.3900, L100.0100 ####[facility] [address] [place], [address] RBC (Bld) [#/Vol] 4.24 10*6/uL Low 4.6-6.2 [facility] Comment on above: Performed By: #### L 300.3900, L100.0100 ####[facility] [address] [place], [address] RDW SD 56.3 fl High 35.1-43.9 [facility] Comment on above: Performed By: #### L 300.3900, L100.0100 ####[facility] [address] [place], [address] WBC (Bld) [#/Vol] 6.0 10*3/uL Normal 4.4-11.0 [facility] Comment on above: Performed By: #### L 300.3900, L100.0100 ####[facility] [address] [place], [address] International normalized rat io (INR) calculationOrdered By: Sunny Mancia on 07-04-2024 INR Coag (Bld) [Relative time] 1.0 {INR} [facility] NATERAon 07-04-2024 NATURA SEE SCANNED REPORT Normal [facility] Comment on above: Performed By: #### L 900.0098 ####[facility] [address] [place], [address] Oncology Visit Reporton Oncology Visit Report Normal [facility] Prothrombin Time w/INRon INR Coag (PPP) [Relative time] 1.0 {INR} Normal [facility] Comment on above: Performed By: #### L 300.3900, L100.0100 ####[facility] [address] [place], [address] PT Coag (PPP) [Time] 12.8 s Normal 11.7-14.9 [facility] Comment on above: Performed By: #### L 300.3900, L100.0100 ####[facility] [address] [place], [address] Prothrombin timeOrdered By: Sunny Mancia on 07-04-2024 PT Coag (PPP) [Time] 12.8 s 11.7-14.9 [facility] Bronchoscopy Reporton 2023 Bronchoscopy Report Normal [facility] CK7 (initial)on 06-22-2024 CK7 (initial) Normal [facility] Comment on above: Performed By: #### P CK7 ####[facility] [address] [place], [address] EGD Reporton 06-22-2024 EGD Report Normal [facility] H Pylori (initial)on 024 H Pylori (initial) Normal [facility] Comment on above: Performed By: #### P H.PYLORI ####[facility] [address] [place], [address] MR/POSTOP.ANEon 06-22-2024 MR/POSTOP.ANE Normal [facility] MR/UTMWNYPT8oq 06-22-2024 MR/POSTOPAN2 Normal [facility] Special Stain Group Ion 06-02 Special Stain Group I Normal [facility] Comment on above: Performed By: #### P SSI ####[facility] [address] [place], [address] Surgery Specimen Level Oscar 06-22-2024 Surgery Specimen Level IV Normal [facility] Comment on above: Performed By: #### P SUIV ####[facility] [address] [place], [address] CBC W/Diff, Automatedon 06-01 Absolute Lymph 1.50 X10 3/uL Normal 0.83-4.51 [facility] Comment on above: Order Comment: Comme nts: Post-operatively Performed By: #### L 100.0100 ####[facility] [address] [place], [address] Absolute Neut 5.3 X10 3/uL Normal 2.0-7.7 [facility] Comment on above: Order Comment: Comme nts: Post-operatively Performed By: #### L 100.0100 ####[facility] [address] [place], [address] Basophils/100 WBC (Bld) 0.3 % Normal 0-1 [facility] Comment on above: Order Comment: Comme nts: Post-operatively Performed By: #### L 100.0100 ####[facility] [address] [place], [address] Eosinophils/100 WBC (Bld) 1.8 % Normal 0-5 [facility] Comment on above: Order Comment: Comme nts: Post-operatively Performed By: #### L 100.0100 ####[facility] [address] [place], [address] Erythrocyte distribution width (RBC) [Ratio] 18.0 % High 11.6-14.6 [facility] Comment on above: Order Comment: Comme nts: Post-operatively Performed By: #### L 100.0100 ####[facility] [address] [place], [address] Hematocrit (Bld) [Volume fraction] 36.1 % Low 40-54 [facility] Comment on above: Order Comment: Comme nts: Post-operatively Performed By: #### L 100.0100 ####[facility] [address] [place], [address] Hemoglobin (Bld) [Mass/Vol] 11.3 g/dL Low 13.0-16.5 [facility] Comment on above: Order Comment: Comme nts: Post-operatively Performed By: #### L 100.0100 ####[facility] [address] [place], [address] IG% 0.400 Normal 0.0-0.9 [facility] Comment on above: Order Comment: Comme nts: Post-operatively Result Comment: IG% - Immature Granulocytes (promyelocytes, myelocytes andmetamyelocytes) > 1% indicates that a LEFT SHIFT is Present. Performed By: #### L 100.0100 ####[facility] [address] [place], [address] Lymphocytes/100 WBC (Bld) 19.5 % Normal 19-41 [facility] Comment on above: Order Comment: Comme nts: Post-operatively Performed By: #### L 100.0100 ####[facility] [address] [place], [address] MCH (RBC) [Entitic mass] 27.0 pg Normal 27.0-32.0 [facility] Comment on above: Order Comment: Comme nts: Post-operatively Performed By: #### L 100.0100 ####[facility] [address] [place], [address] MCHC (RBC) [Mass/Vol] 31.3 g/dL Low 32-36 [facility] Comment on above: Order Comment: Comme nts: Post-operatively Performed By: #### L 100.0100 ####[facility] [address] [place], [address] MCV (RBC) [Entitic vol] 86.4 fL Normal 80-94 [facility] Comment on above: Order Comment: Comme nts: Post-operatively Performed By: #### L 100.0100 ####[facility] [address] [place], [address] Monocytes/100 WBC (Bld) 9.2 % Normal 0-10 [facility] Comment on above: Order Comment: Comme nts: Post-operatively Performed By: #### L 100.0100 ####[facility] [address] [place], [address] Neutrophils/100 WBC (Bld) 68.8 % Normal 47-70 [facility] Comment on above: Order Comment: Comme nts: Post-operatively Performed By: #### L 100.0100 ####[facility] [address] [place], [address] Nucleated RBC (Bld) [#/Vol] 0 10*3/uL Normal 0-5 [facility] Comment on above: Order Comment: Comme nts: Post-operatively Performed By: #### L 100.0100 ####[facility] [address] [place], [address] Platelet mean volume (Bld) [Entitic vol] 9.3 fL Normal 6.2-12.0 [facility] Comment on above: Order Comment: Comme nts: Post-operatively Performed By: #### L 100.0100 ####[facility] [address] [place], [address] Platelets (Bld) [#/Vol] 294 10*3/uL Normal 150-450 [facility] Comment on above: Order Comment: Comme nts: Post-operatively Performed By: #### L 100.0100 ####[facility] [address] [place], [address] RBC (Bld) [#/Vol] 4.18 10*6/uL Low 4.6-6.2 [facility] Comment on above: Order Comment: Comme nts: Post-operatively Performed By: #### L 100.0100 ####[facility] [address] [place], [address] RDW SD 57.7 fl High 35.1-43.9 [facility] Comment on above: Order Comment: Comme nts: Post-operatively Performed By: #### L 100.0100 ####[facility] [address] [place], [address] WBC (Bld) [#/Vol] 7.7 10*3/uL Normal 4.4-11.0 [facility] Comment on above: Order Comment: Comme nts: Post-operatively Performed By: #### L 100.0100 ####[facility] [address] [place], [address] Pulmonary Visit Reporton Pulmonary Visit Report Normal [facility] Basic Metabolic Profile (BMP )on 06-10-2024 BUN/CRE 17.0 RATIO Normal 10-20 [facility] Comment on above: Performed By: #### L 500.2500, L100.0100 ####[facility] [address] [place], [address] CA,Total 8.7 mg/dL Normal 8.5-10.1 [facility] Comment on above: Performed By: #### L 500.2500, L100.0100 ####[facility] [address] [place], [address] Chloride [Moles/Vol] 108 mmol/L High 98-107 [facility] Comment on above: Performed By: #### L 500.2500, L100.0100 ####[facility] [address] [place], [address] CO2 [Moles/Vol] 26.0 mmol/L Normal 21.0-32.0 [facility] Comment on above: Performed By: #### L 500.2500, L100.0100 ####[facility] [address] [place], [address] Creatinine [Mass/Vol] 1.12 mg/dL Normal 0.70-1.30 [facility] Comment on above: Result Comment: The validity of the calculated GFR GFRAA in patients over70 years has not been determined. Clinical correlation isessential. Performed By: #### L 500.2500, L100.0100 ####[facility] [address] [place], [address] ECRCL 49.18 ml/min Normal [facility] Comment on above: Performed By: #### L 500.2500, L100.0100 ####[facility] [address] [place], [address] EST GFR - AA 81 mL/min Normal >60 [facility] Comment on above: Result Comment: Afri can [place] GFR Calc Performed By: #### L 500.2500, L100.0100 ####[facility] [address] [place], [address] GAP 4 Low 5-15 [facility] Comment on above: Performed By: #### L 500.2500, L100.0100 ####[facility] [address] [place], [address] GFR/1.73 sq M.predicted among non-blacks MDRD (S/P/Bld) [Vol rate/Area] 67 mL/min/{1.73_m2} Normal >60 [facility] Comment on above: Result Comment: Non- GFR Calc Performed By: #### L 500.2500, L100.0100 ####[facility] [address] [place], [address] Glucose [Mass/Vol] 100 mg/dL Normal 74-106 [facility] Comment on above: Result Comment: Fast ing Glucose result from 100 to 125 mg/dLsuggests IMPAIRED HOMEOSTASIS per A.D.A. criteria. Performed By: #### L 500.2500, L100.0100 ####[facility] [address] [place], [address] Potassium [Moles/Vol] 4.2 mmol/L Normal 3.5-5.1 [facility] Comment on above: Performed By: #### L 500.2500, L100.0100 ####[facility] [address] [place], [address] Sodium [Moles/Vol] 138 mmol/L Normal 136-145 [facility] Comment on above: Performed By: #### L 500.2500, L100.0100 ####[facility] [address] [place], [address] Urea nitrogen [Mass/Vol] 19 mg/dL High 7-18 [facility] Comment on above: Performed By: #### L 500.2500, L100.0100 ####[facility] [address] [place], [address] CBC W/Diff, Automatedon 11- 0-4 Absolute Lymph 1.57 X10 3/uL Normal 0.83-4.51 [facility] Comment on above: Performed By: #### L 500.2500, L100.0100 ####[facility] [address] [place], [address] Absolute Neut 3.5 X10 3/uL Normal 2.0-7.7 [facility] Comment on above: Performed By: #### L 500.2500, L100.0100 ####[facility] [address] [place], [address] Basophils/100 WBC (Bld) 0.2 % Normal 0-1 [facility] Comment on above: Performed By: #### L 500.2500, L100.0100 ####[facility] [address] [place], [address] Eosinophils/100 WBC (Bld) 3.9 % Normal 0-5 [facility] Comment on above: Performed By: #### L 500.2500, L100.0100 ####[facility] [address] [place], [address] Erythrocyte distribution width (RBC) [Ratio] 18.6 % High 11.6-14.6 [facility] Comment on above: Performed By: #### L 500.2500, L100.0100 ####[facility] [address] [place], [address] Hematocrit (Bld) [Volume fraction] 32.1 % Low 40-54 [facility] Comment on above: Performed By: #### L 500.2500, L100.0100 ####[facility] [address] [place], [address] Hemoglobin (Bld) [Mass/Vol] 10.2 g/dL Low 13.0-16.5 [facility] Comment on above: Performed By: #### L 500.2500, L100.0100 ####[facility] [address] [place], [address] IG% 0.300 Normal 0.0-0.9 [facility] Comment on above: Result Comment: IG% - Immature Granulocytes (promyelocytes, myelocytes andmetamyelocytes) > 1% indicates that a LEFT SHIFT is Present. Performed By: #### L 500.2500, L100.0100 ####[facility] [address] [place], [address] Lymphocytes/100 WBC (Bld) 25.7 % Normal 19-41 [facility] Comment on above: Performed By: #### L 500.2500, L100.0100 ####[facility] [address] [place], [address] MCH (RBC) [Entitic mass] 27.1 pg Normal 27.0-32.0 [facility] Comment on above: Performed By: #### L 500.2500, L100.0100 ####[facility] [address] [place], [address] MCHC (RBC) [Mass/Vol] 31.8 g/dL Low 32-36 [facility] Comment on above: Performed By: #### L 500.2500, L100.0100 ####[facility] [address] [place], [address] MCV (RBC) [Entitic vol] 85.4 fL Normal 80-94 [facility] Comment on above: Performed By: #### L 500.2500, L100.0100 ####[facility] [address] [place], [address] Monocytes/100 WBC (Bld) 12.4 % High 0-10 [facility] Comment on above: Performed By: #### L 500.2500, L100.0100 ####[facility] [address] [place], [address] Neutrophils/100 WBC (Bld) 57.5 % Normal 47-70 [facility] Comment on above: Performed By: #### L 500.2500, L100.0100 ####[facility] [address] [place], [address] Nucleated RBC (Bld) [#/Vol] 0 10*3/uL Normal 0-5 [facility] Comment on above: Performed By: #### L 500.2500, L100.0100 ####[facility] [address] [place], [address] Platelet mean volume (Bld) [Entitic vol] 9.6 fL Normal 6.2-12.0 [facility] Comment on above: Performed By: #### L 500.2500, L100.0100 ####[facility] [address] [place], [address] Platelets (Bld) [#/Vol] 275 10*3/uL Normal 150-450 [facility] Comment on above: Performed By: #### L 500.2500, L100.0100 ####[facility] [address] [place], [address] RBC (Bld) [#/Vol] 3.76 10*6/uL Low 4.6-6.2 [facility] Comment on above: Performed By: #### L 500.2500, L100.0100 ####[facility] [address] [place], [address] RDW SD 58.0 fl High 35.1-43.9 [facility] Comment on above: Performed By: #### L 500.2500, L100.0100 ####[facility] [address] [place], [address] WBC (Bld) [#/Vol] 6.1 10*3/uL Normal 4.4-11.0 [facility] Comment on above: Performed By: #### L 500.2500, L100.0100 ####[facility] [address] [place], [address] Discharge Instructionon 06-01 Discharge Instruction Normal [facility] BRCon 06-09-2024 RC Normal Neg [facility] Comment on above: Result Comment: [id number] OP RC TRANSFUSED 06/09/24 1143 Performed By: #### B , [facility] ####[facility] [address] [place], [address] CBC W/Diff, Automatedon 11- Absolute Lymph 1.40 X10 3/uL Normal 0.83-4.51 [facility] Comment on above: Performed By: #### L 100.0100, L500.4050, L501.5200 ####[facility] [address] [place], [address] Absolute Neut 4.2 X10 3/uL Normal 2.0-7.7 [facility] Comment on above: Performed By: #### L 100.0100, L500.4050, L501.5200 ####[facility] [address] [place], [address] Basophils/100 WBC (Bld) 0.3 % Normal 0-1 [facility] Comment on above: Performed By: #### L 100.0100, L500.4050, L501.5200 ####[facility] [address] [place], [address] Eosinophils/100 WBC (Bld) 3.2 % Normal 0-5 [facility] Comment on above: Performed By: #### L 100.0100, L500.4050, L501.5200 ####[facility] [address] [place], [address] Erythrocyte distribution width (RBC) [Ratio] 19.2 % High 11.6-14.6 [facility] Comment on above: Performed By: #### L 100.0100, L500.4050, L501.5200 ####[facility] [address] [place], [address] Hematocrit (Bld) [Volume fraction] 26.4 % Low 40-54 [facility] Comment on above: Performed By: #### L 100.0100, L500.4050, L501.5200 ####[facility] [address] [place], [address] Hemoglobin (Bld) [Mass/Vol] 8.2 g/dL Low 13.0-16.5 [facility] Comment on above: Performed By: #### L 100.0100, L500.4050, L501.5200 ####[facility] [address] [place], [address] IG% 0.300 Normal 0.0-0.9 [facility] Comment on above: Result Comment: IG% - Immature Granulocytes (promyelocytes, myelocytes andmetamyelocytes) > 1% indicates that a LEFT SHIFT is Present. Performed By: #### L 100.0100, L500.4050, L501.5200 ####[facility] [address] [place], [address] Lymphocytes/100 WBC (Bld) 21.6 % Normal 19-41 [facility] Comment on above: Performed By: #### L 100.0100, L500.4050, L501.5200 ####[facility] [address] [place], [address] MCH (RBC) [Entitic mass] 26.8 pg Low 27.0-32.0 [facility] Comment on above: Performed By: #### L 100.0100, L500.4050, L501.5200 ####[facility] [address] [place], [address] MCHC (RBC) [Mass/Vol] 31.1 g/dL Low 32-36 [facility] Comment on above: Performed By: #### L 100.0100, L500.4050, L501.5200 ####[facility] [address] [place], [address] MCV (RBC) [Entitic vol] 86.3 fL Normal 80-94 [facility] Comment on above: Performed By: #### L 100.0100, L500.4050, L501.5200 ####[facility] [address] [place], [address] Monocytes/100 WBC (Bld) 10.2 % High 0-10 [facility] Comment on above: Performed By: #### L 100.0100, L500.4050, L501.5200 ####[facility] [address] [place], [address] Neutrophils/100 WBC (Bld) 64.4 % Normal 47-70 [facility] Comment on above: Performed By: #### L 100.0100, L500.4050, L501.5200 ####[facility] [address] [place], [address] Nucleated RBC (Bld) [#/Vol] 0 10*3/uL Normal 0-5 [facility] Comment on above: Performed By: #### L 100.0100, L500.4050, L501.5200 ####[facility] [address] [place], [address] Platelet mean volume (Bld) [Entitic vol] 9.8 fL Normal 6.2-12.0 [facility] Comment on above: Performed By: #### L 100.0100, L500.4050, L501.5200 ####[facility] [address] [place], [address] Platelets (Bld) [#/Vol] 262 10*3/uL Normal 150-450 [facility] Comment on above: Performed By: #### L 100.0100, L500.4050, L501.5200 ####[facility] [address] [place], [address] RBC (Bld) [#/Vol] 3.06 10*6/uL Low 4.6-6.2 [facility] Comment on above: Performed By: #### L 100.0100, L500.4050, L501.5200 ####[facility] [address] [place], [address] RDW SD 59.4 fl High 35.1-43.9 [facility] Comment on above: Performed By: #### L 100.0100, L500.4050, L501.5200 ####[facility] [address] [place], [address] WBC (Bld) [#/Vol] 6.5 10*3/uL Normal 4.4-11.0 [facility] Comment on above: Performed By: #### L 100.0100, L500.4050, L501.5200 ####[facility] [address] [place], [address] Comprehensive Metabolic [facility] 06-09-2024 Albumin [Mass/Vol] 2.9 g/dL Low 3.2-5.0 [facility] Comment on above: Performed By: #### L 100.0100, L500.4050, L501.5200 ####[facility] [address] [place], [address] Albumin/Globulin [Mass ratio] 1.1 {ratio} Normal 0.9-2.4 [facility] Comment on above: Performed By: #### L 100.0100, L500.4050, L501.5200 ####[facility] [address] [place], [address] ALK P 76 U/L Normal 45-117 [facility] Comment on above: Performed By: #### L 100.0100, L500.4050, L501.5200 ####[facility] [address] [place], [address] ALT [Catalytic activity/Vol] 12 U/L Low 16-61 [facility] Comment on above: Performed By: #### L 100.0100, L500.4050, L501.5200 ####[facility] [address] [place], [address] AST [Catalytic activity/Vol] 14 U/L Low 15-37 [facility] Comment on above: Performed By: #### L 100.0100, L500.4050, L501.5200 ####[facility] [address] [place], [address] Bilirubin [Mass/Vol] 0.60 mg/dL Normal 0.20-1.00 [facility] Comment on above: Result Comment: For patients on eltrombopag therapy, use of Dimension [place] TBIL is not recommended. Performed By: #### L 100.0100, L500.4050, L501.5200 ####[facility] [address] [place], [address] BUN/CRE 19.6 RATIO Normal 10-20 [facility] Comment on above: Performed By: #### L 100.0100, L500.4050, L501.5200 ####[facility] [address] [place], [address] CA,Total 7.9 mg/dL Low 8.5-10.1 [facility] Comment on above: Performed By: #### L 100.0100, L500.4050, L501.5200 ####[facility] [address] [place], [address] Chloride [Moles/Vol] 105 mmol/L Normal 98-107 [facility] Comment on above: Performed By: #### L 100.0100, L500.4050, L501.5200 ####[facility] [address] [place], [address] CO2 [Moles/Vol] 24.0 mmol/L Normal 21.0-32.0 [facility] Comment on above: Performed By: #### L 100.0100, L500.4050, L501.5200 ####[facility] [address] [place], [address] Creatinine [Mass/Vol] 1.12 mg/dL Normal 0.70-1.30 [facility] Comment on above: Result Comment: The validity of the calculated GFR GFRAA in patients over70 years has not been determined. Clinical correlation isessential. Performed By: #### L 100.0100, L500.4050, L501.5200 ####[facility] [address] [place], [address] ECRCL 49.18 ml/min Normal [facility] Comment on above: Performed By: #### L 100.0100, L500.4050, L501.5200 ####[facility] [address] [place], [address] EST GFR - AA 81 mL/min Normal >60 [facility] Comment on above: Result Comment: Afri can [place] GFR Calc Performed By: #### L 100.0100, L500.4050, L501.5200 ####[facility] [address] [place], [address] GAP 5 Normal 5-15 [facility] Comment on above: Performed By: #### L 100.0100, L500.4050, L501.5200 ####[facility] [address] [place], [address] GFR/1.73 sq M.predicted among non-blacks MDRD (S/P/Bld) [Vol rate/Area] 67 mL/min/{1.73_m2} Normal >60 [facility] Comment on above: Result Comment: Non- GFR Calc Performed By: #### L 100.0100, L500.4050, L501.5200 ####[facility] [address] [place], [address] Globulin (S) [Mass/Vol] 2.6 g/dL Normal 2.2-4.2 [facility] Comment on above: Performed By: #### L 100.0100, L500.4050, L501.5200 ####[facility] [address] [place], [address] Glucose [Mass/Vol] 103 mg/dL Normal 74-106 [facility] Comment on above: Result Comment: Fast ing Glucose result from 100 to 125 mg/dLsuggests IMPAIRED HOMEOSTASIS per A.D.A. criteria. Performed By: #### L 100.0100, L500.4050, L501.5200 ####[facility] [address] [place], [address] Potassium [Moles/Vol] 3.9 mmol/L Normal 3.5-5.1 [facility] Comment on above: Performed By: #### L 100.0100, L500.4050, L501.5200 ####[facility] [address] [place], [address] Sodium [Moles/Vol] 135 mmol/L Low 136-145 [facility] Comment on above: Performed By: #### L 100.0100, L500.4050, L501.5200 ####[facility] [address] [place], [address] T PROT 5.5 g/dL Low 6.4-8.2 [facility] Comment on above: Performed By: #### L 100.0100, L500.4050, L501.5200 ####[facility] [address] [place], [address] Urea nitrogen [Mass/Vol] 22 mg/dL High 7-18 [facility] Comment on above: Performed By: #### L 100.0100, L500.4050, L501.5200 ####[facility] [address] [place], [address] HH, Hemoglobin AND Hematocri ton 06-09-2024 Hematocrit (Bld) [Volume fraction] 27.8 % Low 40-54 [facility] Comment on above: Performed By: #### L 100.0600 ####[facility] [address] [place], [address] Hemoglobin (Bld) [Mass/Vol] 9.0 g/dL Low 13.0-16.5 [facility] Comment on above: Performed By: #### L 100.0600 ####[facility] [address] [place], [address] L501.4020on 06-09-2024 TROPONIN-I HS 88 pg/mL High 3.0-78.0 [facility] Comment on above: Order Comment: 'TROP ' Serial specimen #1, #2 or #3: 3 Result Comment: Debi vieyra Note: New Test Units and Gender Specific Reference Ranges. For more information see Policy Stat Procedure [place] High Sensitivity Troponin (TNIH) and attachments. Performed By: #### L 501.4020 ####[facility] [address] [place], [address] Magnesiumon 06-09-2024 Magnesium [Mass/Vol] 1.8 mg/dL Normal 1.6-2.6 [facility] Comment on above: Performed By: #### L 100.0100, L500.4050, L501.5200 ####[facility] [address] [place], [place], [id number] Type AND Screenon 06-09-2024 Ab SCREEN GEL Negative Normal [facility] Comment on above: Order Comment: CMV N EG? NNumber of units to transfuse: 1Reason for Ordering Blood: AcuteAre the blood/blood products to be transfused? YIs the patient having/had surgery? Claudine Goodman Performed By: #### Marco KANG, [facility] ####[facility] [address] [place], [place], [id number] ABO and Rh group Nom (Bld) Blood group O Rh(D) positive Normal [facility] Comment on above: Order Comment: CMV N EG? NNumber of units to transfuse: 1Reason for Ordering Blood: AcuteAre the blood/blood products to be transfused? YIs the patient having/had surgery? Claudine Goodman Performed By: #### Marco KANG, [facility] ####[facility] [address] [place], [place], [id number] 12 Lead EKGon 06-08-2024 12 Lead EKG Normal [facility] BNP,B-Type NATRIURETIC PEPTI Иван 06-08-2024 Natriuretic peptide B (Bld) [Mass/Vol] 109.8 pg/mL High 0-100 [facility] Comment on above: Performed By: #### L 503.6620, L300.3900, L100.0100, L501.5425, L500.2500 ####[facility] [address] [place], [place], [id number] Basic Metabolic Profile (BMP )on 06-08-2024 BUN/CRE 18.2 RATIO Normal 10-20 [facility] Comment on above: Order Comment: 1Y Performed By: #### L 503.6620, L300.3900, L100.0100, L501.5425, L500.2500 ####[facility] [address] [place], [place], [id number] CA,Total 9.4 mg/dL Normal 8.5-10.1 [facility] Comment on above: Order Comment: 1Y Performed By: #### L 503.6620, L300.3900, L100.0100, L501.5425, L500.2500 ####[facility] [address] [place], [address] Chloride [Moles/Vol] 105 mmol/L Normal 98-107 [facility] Comment on above: Order Comment: 1Y Performed By: #### L 503.6620, L300.3900, L100.0100, L501.5425, L500.2500 ####[facility] [address] [place], [address] CO2 [Moles/Vol] 23.0 mmol/L Normal 21.0-32.0 [facility] Comment on above: Order Comment: 1Y Performed By: #### L 503.6620, L300.3900, L100.0100, L501.5425, L500.2500 ####[facility] [address] [place], [address] Creatinine [Mass/Vol] 1.21 mg/dL Normal 0.70-1.30 [facility] Comment on above: Order Comment: 1Y Result Comment: The validity of the calculated GFR GFRAA in patients over70 years has not been determined. Clinical correlation isessential. Performed By: #### L 503.6620, L300.3900, L100.0100, L501.5425, L500.2500 ####[facility] [address] [place], [address] ECRCL 45.52 ml/min Normal [facility] Comment on above: Order Comment: 1Y Performed By: #### L 503.6620, L300.3900, L100.0100, L501.5425, L500.2500 ####[facility] [address] [place], [address] EST GFR - AA 74 mL/min Normal >60 [facility] Comment on above: Order Comment: 1Y Result Comment: Afri can [place] GFR Calc Performed By: #### L 503.6620, L300.3900, L100.0100, L501.5425, L500.2500 ####[facility] [address] [place], [address] GAP 8 Normal 5-15 [facility] Comment on above: Order Comment: 1Y Performed By: #### L 503.6620, L300.3900, L100.0100, L501.5425, L500.2500 ####[facility] [address] [place], [address] GFR/1.73 sq M.predicted among non-blacks MDRD (S/P/Bld) [Vol rate/Area] 61 mL/min/{1.73_m2} Normal >60 [facility] Comment on above: Order Comment: 1Y Result Comment: Non- GFR Calc Performed By: #### L 503.6620, L300.3900, L100.0100, L501.5425, L500.2500 ####[facility] [address] [place], [address] Glucose [Mass/Vol] 127 mg/dL High 74-106 [facility] Comment on above: Order Comment: 1Y Result Comment: Fast ing Glucose result greater than or equal to 126 mg/dLsuggests DIABETES MELLITUS per A.D.A. criteria. Performed By: #### L 503.6620, L300.3900, L100.0100, L501.5425, L500.2500 ####[facility] [address] [place], [address] Potassium [Moles/Vol] 3.8 mmol/L Normal 3.5-5.1 [facility] Comment on above: Order Comment: 1Y Performed By: #### L 503.6620, L300.3900, L100.0100, L501.5425, L500.2500 ####[facility] [address] [place], [address] Sodium [Moles/Vol] 136 mmol/L Normal 136-145 [facility] Comment on above: Order Comment: 1Y Performed By: #### L 503.6620, L300.3900, L100.0100, L501.5425, L500.2500 ####[facility] [address] [place], [address] Urea nitrogen [Mass/Vol] 22 mg/dL High 7-18 [facility] Comment on above: Order Comment: 1Y Performed By: #### L 503.6620, L300.3900, L100.0100, L501.5425, L500.2500 ####[facility] [address] [place], [address] Biopsy/Inj or Needle Placeme nton 06-08-2023 Biopsy/Inj or Needle Placement Normal [facility] CBC W/Diff, Automatedon 11-0 -2023 Absolute Lymph 0.97 X10 3/uL Normal 0.83-4.51 [facility] Comment on above: Performed By: #### L 100.0100 ####[facility] [address] [place], [address] Absolute Neut 5.5 X10 3/uL Normal 2.0-7.7 [facility] Comment on above: Performed By: #### L 100.0100 ####[facility] [address] [place], [address] Basophils/100 WBC (Bld) 0.1 % Normal 0-1 [facility] Comment on above: Performed By: #### L 100.0100 ####[facility] [address] [place], [address] Eosinophils/100 WBC (Bld) 1.3 % Normal 0-5 [facility] Comment on above: Performed By: #### L 100.0100 ####[facility] [address] [place], [address] Erythrocyte distribution width (RBC) [Ratio] 18.9 % High 11.6-14.6 [facility] Comment on above: Performed By: #### L 100.0100 ####[facility] [address] [place], [address] Hematocrit (Bld) [Volume fraction] 27.6 % Low 40-54 [facility] Comment on above: Performed By: #### L 100.0100 ####[facility] [address] [place], [address] Hemoglobin (Bld) [Mass/Vol] 8.7 g/dL Low 13.0-16.5 [facility] Comment on above: Performed By: #### L 100.0100 ####[facility] [address] [place], [address] IG% 0.400 Normal 0.0-0.9 [facility] Comment on above: Result Comment: IG% - Immature Granulocytes (promyelocytes, myelocytes andmetamyelocytes) > 1% indicates that a LEFT SHIFT is Present. Performed By: #### L 100.0100 ####[facility] [address] [place], [address] Lymphocytes/100 WBC (Bld) 13.5 % Low 19-41 [facility] Comment on above: Performed By: #### L 100.0100 ####[facility] [address] [place], [address] MCH (RBC) [Entitic mass] 27.2 pg Normal 27.0-32.0 [facility] Comment on above: Performed By: #### L 100.0100 ####[facility] [address] [place], [address] MCHC (RBC) [Mass/Vol] 31.5 g/dL Low 32-36 [facility] Comment on above: Performed By: #### L 100.0100 ####[facility] [address] [place], [address] MCV (RBC) [Entitic vol] 86.3 fL Normal 80-94 [facility] Comment on above: Performed By: #### L 100.0100 ####[facility] [address] [place], [address] Monocytes/100 WBC (Bld) 8.1 % Normal 0-10 [facility] Comment on above: Performed By: #### L 100.0100 ####[facility] [address] [place], [address] Neutrophils/100 WBC (Bld) 76.6 % High 47-70 [facility] Comment on above: Performed By: #### L 100.0100 ####[facility] [address] [place], [address] Nucleated RBC (Bld) [#/Vol] 0 10*3/uL Normal 0-5 [facility] Comment on above: Performed By: #### L 100.0100 ####[facility] [address] [place], [address] Platelet mean volume (Bld) [Entitic vol] 9.1 fL Normal 6.2-12.0 [facility] Comment on above: Performed By: #### L 100.0100 ####[facility] [address] [place], [address] Platelets (Bld) [#/Vol] 265 10*3/uL Normal 150-450 [facility] Comment on above: Performed By: #### L 100.0100 ####[facility] [address] [place], [address] RBC (Bld) [#/Vol] 3.20 10*6/uL Low 4.6-6.2 [facility] Comment on above: Performed By: #### L 100.0100 ####[facility] [address] [place], [address] RDW SD 58.9 fl High 35.1-43.9 [facility] Comment on above: Performed By: #### L 100.0100 ####[facility] [address] [place], [address] WBC (Bld) [#/Vol] 7.2 10*3/uL Normal 4.4-11.0 [facility] Comment on above: Performed By: #### L 100.0100 ####[facility] [address] [place], [address] Absolute Lymph 1.94 X10 3/uL Normal 0.83-4.51 [facility] Comment on above: Performed By: #### L 503.6620, L300.3900, L100.0100, L501.5425, L500.2500 ####[facility] [address] [place], [address] Absolute Neut 10.2 X10 3/uL High 2.0-7.7 [facility] Comment on above: Performed By: #### L 503.6620, L300.3900, L100.0100, L501.5425, L500.2500 ####[facility] [address] [place], [address] Basophils/100 WBC (Bld) 0.2 % Normal 0-1 [facility] Comment on above: Performed By: #### L 503.6620, L300.3900, L100.0100, L501.5425, L500.2500 ####[facility] [address] [place], [address] Eosinophils/100 WBC (Bld) 1.6 % Normal 0-5 [facility] Comment on above: Performed By: #### L 503.6620, L300.3900, L100.0100, L501.5425, L500.2500 ####[facility] [address] [place], [address] Erythrocyte distribution width (RBC) [Ratio] 18.9 % High 11.6-14.6 [facility] Comment on above: Performed By: #### L 503.6620, L300.3900, L100.0100, L501.5425, L500.2500 ####[facility] [address] [place], [address] Hematocrit (Bld) [Volume fraction] 35.8 % Low 40-54 [facility] Comment on above: Performed By: #### L 503.6620, L300.3900, L100.0100, L501.5425, L500.2500 ####[facility] [address] [place], [address] Hemoglobin (Bld) [Mass/Vol] 11.1 g/dL Low 13.0-16.5 [facility] Comment on above: Performed By: #### L 503.6620, L300.3900, L100.0100, L501.5425, L500.2500 ####[facility] [address] [place], [address] IG% 0.600 Normal 0.0-0.9 [facility] Comment on above: Result Comment: IG% - Immature Granulocytes (promyelocytes, myelocytes andmetamyelocytes) > 1% indicates that a LEFT SHIFT is Present. Performed By: #### L 503.6620, L300.3900, L100.0100, L501.5425, L500.2500 ####[facility] [address] [place], [address] Lymphocytes/100 WBC (Bld) 14.5 % Low 19-41 [facility] Comment on above: Performed By: #### L 503.6620, L300.3900, L100.0100, L501.5425, L500.2500 ####[facility] [address] [place], [address] MCH (RBC) [Entitic mass] 26.5 pg Low 27.0-32.0 [facility] Comment on above: Performed By: #### L 503.6620, L300.3900, L100.0100, L501.5425, L500.2500 ####[facility] [address] [place], [address] MCHC (RBC) [Mass/Vol] 31.0 g/dL Low 32-36 [facility] Comment on above: Performed By: #### L 503.6620, L300.3900, L100.0100, L501.5425, L500.2500 ####[facility] [address] [place], [address] MCV (RBC) [Entitic vol] 85.4 fL Normal 80-94 [facility] Comment on above: Performed By: #### L 503.6620, L300.3900, L100.0100, L501.5425, L500.2500 ####[facility] [address] [place], [address] Monocytes/100 WBC (Bld) 6.7 % Normal 0-10 [facility] Comment on above: Performed By: #### L 503.6620, L300.3900, L100.0100, L501.5425, L500.2500 ####[facility] [address] [place], [address] Neutrophils/100 WBC (Bld) 76.4 % High 47-70 [facility] Comment on above: Performed By: #### L 503.6620, L300.3900, L100.0100, L501.5425, L500.2500 ####[facility] [address] [place], [address] Nucleated RBC (Bld) [#/Vol] 0 10*3/uL Normal 0-5 [facility] Comment on above: Performed By: #### L 503.6620, L300.3900, L100.0100, L501.5425, L500.2500 ####[facility] [address] [place], [address] Platelet mean volume (Bld) [Entitic vol] 9.8 fL Normal 6.2-12.0 [facility] Comment on above: Performed By: #### L 503.6620, L300.3900, L100.0100, L501.5425, L500.2500 ####[facility] [address] [place], [address] Platelets (Bld) [#/Vol] 372 10*3/uL Normal 150-450 [facility] Comment on above: Performed By: #### L 503.6620, L300.3900, L100.0100, L501.5425, L500.2500 ####[facility] [address] [place], [address] RBC (Bld) [#/Vol] 4.19 10*6/uL Low 4.6-6.2 [facility] Comment on above: Performed By: #### L 503.6620, L300.3900, L100.0100, L501.5425, L500.2500 ####[facility] [address] [place], [address] RDW SD 57.8 fl High 35.1-43.9 [facility] Comment on above: Performed By: #### L 503.6620, L300.3900, L100.0100, L501.5425, L500.2500 ####[facility] [address] [place], [address] WBC (Bld) [#/Vol] 13.4 10*3/uL High 4.4-11.0 [facility] Comment on above: Performed By: #### L 503.6620, L300.3900, L100.0100, L501.5425, L500.2500 ####[facility] [address] [place], [address] Absolute Lymph 1.50 X10 3/uL Normal 0.83-4.51 [facility] Comment on above: Performed By: #### L 300.4310, L100.0100, L300.3900 ####[facility] [address] [place], [address] Absolute Neut 4.2 X10 3/uL Normal 2.0-7.7 [facility] Comment on above: Performed By: #### L 300.4310, L100.0100, L300.3900 ####[facility] [address] [place], [address] Basophils/100 WBC (Bld) 0.4 % Normal 0-1 [facility] Comment on above: Performed By: #### L 300.4310, L100.0100, L300.3900 ####[facility] [address] [place], [address] Eosinophils/100 WBC (Bld) 4.9 % Normal 0-5 [facility] Comment on above: Performed By: #### L 300.4310, L100.0100, L300.3900 ####[facility] [address] [place], [address] Erythrocyte distribution width (RBC) [Ratio] 18.9 % High 11.6-14.6 [facility] Comment on above: Performed By: #### L 300.4310, L100.0100, L300.3900 ####[facility] [address] [place], [address] Hematocrit (Bld) [Volume fraction] 36.2 % Low 40-54 [facility] Comment on above: Performed By: #### L 300.4310, L100.0100, L300.3900 ####[facility] [address] [place], [address] Hemoglobin (Bld) [Mass/Vol] 11.4 g/dL Low 13.0-16.5 [facility] Comment on above: Performed By: #### L 300.4310, L100.0100, L300.3900 ####[facility] [address] [place], [address] IG% 0.400 Normal 0.0-0.9 [facility] Comment on above: Result Comment: IG% - Immature Granulocytes (promyelocytes, myelocytes andmetamyelocytes) > 1% indicates that a LEFT SHIFT is Present. Performed By: #### L 300.4310, L100.0100, L300.3900 ####[facility] [address] [place], [address] Lymphocytes/100 WBC (Bld) 21.6 % Normal 19-41 [facility] Comment on above: Performed By: #### L 300.4310, L100.0100, L300.3900 ####[facility] [address] [place], [address] MCH (RBC) [Entitic mass] 26.8 pg Low 27.0-32.0 [facility] Comment on above: Performed By: #### L 300.4310, L100.0100, L300.3900 ####[facility] [address] [place], [address] MCHC (RBC) [Mass/Vol] 31.5 g/dL Low 32-36 [facility] Comment on above: Performed By: #### L 300.4310, L100.0100, L300.3900 ####[facility] [address] [place], [address] MCV (RBC) [Entitic vol] 85.2 fL Normal 80-94 [facility] Comment on above: Performed By: #### L 300.4310, L100.0100, L300.3900 ####[facility] [address] [place], [address] Monocytes/100 WBC (Bld) 11.8 % High 0-10 [facility] Comment on above: Performed By: #### L 300.4310, L100.0100, L300.3900 ####[facility] [address] [place], [address] Neutrophils/100 WBC (Bld) 60.9 % Normal 47-70 [facility] Comment on above: Performed By: #### L 300.4310, L100.0100, L300.3900 ####[facility] [address] [place], [address] Nucleated RBC (Bld) [#/Vol] 0 10*3/uL Normal 0-5 [facility] Comment on above: Performed By: #### L 300.4310, L100.0100, L300.3900 ####[facility] [address] [place], [address] Platelet mean volume (Bld) [Entitic vol] 9.5 fL Normal 6.2-12.0 [facility] Comment on above: Performed By: #### L 300.4310, L100.0100, L300.3900 ####[facility] [address] [place], [address] Platelets (Bld) [#/Vol] 344 10*3/uL Normal 150-450 [facility] Comment on above: Performed By: #### L 300.4310, L100.0100, L300.3900 ####[facility] [address] [place], [address] RBC (Bld) [#/Vol] 4.25 10*6/uL Low 4.6-6.2 [facility] Comment on above: Performed By: #### L 300.4310, L100.0100, L300.3900 ####[facility] [address] [place], [address] RDW SD 57.6 fl High 35.1-43.9 [facility] Comment on above: Performed By: #### L 300.4310, L100.0100, L300.3900 ####[facility] [address] [place], [address] WBC (Bld) [#/Vol] 6.9 10*3/uL Normal 4.4-11.0 [facility] Comment on above: Performed By: #### L 300.4310, L100.0100, L300.3900 ####[facility] [address] [place], [address] CBC-Complete Blood Cnt No Di ffon 06-08-2024 Erythrocyte distribution width (RBC) [Ratio] 18.8 % High 11.6-14.6 [facility] Comment on above: Performed By: #### L 100.0500 ####[facility] [address] [place], [address] Hematocrit (Bld) [Volume fraction] 30.7 % Low 40-54 [facility] Comment on above: Performed By: #### L 100.0500 ####[facility] [address] [place], [address] Hemoglobin (Bld) [Mass/Vol] 9.8 g/dL Low 13.0-16.5 [facility] Comment on above: Performed By: #### L 100.0500 ####[facility] [address] [place], [address] MCH (RBC) [Entitic mass] 27.1 pg Normal 27.0-32.0 [facility] Comment on above: Performed By: #### L 100.0500 ####[facility] [address] [place], [address] MCHC (RBC) [Mass/Vol] 31.9 g/dL Low 32-36 [facility] Comment on above: Performed By: #### L 100.0500 ####[facility] [address] [place], [address] MCV (RBC) [Entitic vol] 84.8 fL Normal 80-94 [facility] Comment on above: Performed By: #### L 100.0500 ####[facility] [address] [place], [address] Platelet mean volume (Bld) [Entitic vol] 9.1 fL Normal 6.2-12.0 [facility] Comment on above: Performed By: #### L 100.0500 ####[facility] [address] [place], [address] Platelets (Bld) [#/Vol] 284 10*3/uL Normal 150-450 [facility] Comment on above: Performed By: #### L 100.0500 ####[facility] [address] [place], [address] RBC (Bld) [#/Vol] 3.62 10*6/uL Low 4.6-6.2 [facility] Comment on above: Performed By: #### L 100.0500 ####[facility] [address] [place], [address] RDW SD 57.6 fl High 35.1-43.9 [facility] Comment on above: Performed By: #### L 100.0500 ####[facility] [address] [place], [address] WBC (Bld) [#/Vol] 9.9 10*3/uL Normal 4.4-11.0 [facility] Comment on above: Performed By: #### L 100.0500 ####[facility] [address] [place], [address] CTA Chst, Abd, Pel W and/or WOon 06-08-2024 CTA Chst, Abd, Pel W and/or WO Normal [facility] Chest 1 View (Portable)on Chest 1 View (Portable) Normal [facility] Emergency Department Summary on 06-08-2024 Emergency Department Summary Normal [facility] H AND P Exam - Hospitaliston 06-08-2024 H&P Exam - Hospitalist Normal [facility] L501.4020on 06-08-2024 TROPONIN-I HS 96 pg/mL High 3.0-78.0 [facility] Comment on above: Result Comment: Plea se Note: New Test Units and Gender Specific Reference Ranges. For more information see Policy Stat Procedure [place] High Sensitivity Troponin (TNIH) and attachments. Performed By: #### L 501.4020 ####[facility] [address] [place], [address] L501.5425on 06-08-2024 TROPONIN-I HS 97 pg/mL High 3.0-78.0 [facility] Comment on above: Order Comment: 1Y Result Comment: Plea se Note: New Test Units and Gender Specific Reference Ranges. For more information see Policy Stat Procedure [place] High Sensitivity Troponin (TNIH) and attachments. Performed By: #### L 503.6620, L300.3900, L100.0100, L501.5425, L500.2500 ####[facility] [address] [place], [address] Lipaseon 06-08-2024 Lipase [Catalytic activity/Vol] 26 U/L Normal 13-75 [facility] Comment on above: Result Comment: Plea se note:LIPASE revised reference range effective 22.New Lipase methodology. Expected to produce lower valuesthan the previous assay method.NEW Reference Range: 13 - 75 U/L Performed By: #### L 500.3400, L501.2450 ####[facility] [address] [place], [address] Liver Profileon 06-08-2024 Albumin [Mass/Vol] 3.6 g/dL Normal 3.2-5.0 [facility] Comment on above: Performed By: #### L 500.3400, L501.2450 ####[facility] [address] [place], [address] ALK P 103 U/L Normal 45-117 [facility] Comment on above: Performed By: #### L 500.3400, L501.2450 ####[facility] [address] [place], [address] ALT [Catalytic activity/Vol] 20 U/L Normal 16-61 [facility] Comment on above: Performed By: #### L 500.3400, L501.2450 ####[facility] [address] [place], [address] AST [Catalytic activity/Vol] 23 U/L Normal 15-37 [facility] Comment on above: Performed By: #### L 500.3400, L501.2450 ####[facility] [address] [place], [address] Bilirubin [Mass/Vol] 0.60 mg/dL Normal 0.20-1.00 [facility] Comment on above: Result Comment: For patients on eltrombopag therapy, use of Dimension [place] TBIL is not recommended. Performed By: #### L 500.3400, L501.2450 ####[facility] [address] [place], [address] Bilirubin.direct [Mass/Vol] 0.18 mg/dL Normal 0.00-0.30 [facility] Comment on above: Performed By: #### L 500.3400, L501.2450 ####[facility] [address] [place], [address] Globulin (S) [Mass/Vol] 3.5 g/dL Normal 2.2-4.2 [facility] Comment on above: Performed By: #### L 500.3400, L501.2450 ####[facility] [address] [place], [address] T PROT 7.1 g/dL Normal 6.4-8.2 [facility] Comment on above: Performed By: #### L 500.3400, L501.2450 ####[facility] [address] [place], [address] Partial Thromboplast Timeon 06-08-2024 aPTT Coag (Bld) [Time] 32.9 s Normal 24.1-36.2 [facility] Comment on above: Performed By: #### L 300.4310, L100.0100, L300.3900 ####[facility] [address] [place], [address] Prothrombin Time w/INRon INR Coag (PPP) [Relative time] 1.1 {INR} Normal [facility] Comment on above: Performed By: #### L 503.6620, L300.3900, L100.0100, L501.5425, L500.2500 ####[facility] [address] [place], [address] PT Coag (PPP) [Time] 14.3 s Normal 11.7-14.9 [facility] Comment on above: Performed By: #### L 503.6620, L300.3900, L100.0100, L501.5425, L500.2500 ####[facility] [address] [place], [address] INR Coag (PPP) [Relative time] 1.1 {INR} Normal [facility] Comment on above: Performed By: #### L 300.4310, L100.0100, L300.3900 ####[facility] [address] [place], [address] PT Coag (PPP) [Time] 13.9 s Normal 11.7-14.9 [facility] Comment on above: Performed By: #### L 300.4310, L100.0100, L300.3900 ####[facility] [address] [place], [address] Trichrome (control)on 2023 Trichrome (control) Normal [facility] Comment on above: Performed By: #### P TRI ####[facility] [address] [place], [address] 12 Lead EKGon 06-07-2024 12 Lead EKG Normal [facility] Basic Metabolic Profile (BMP )on 06-07-2024 BUN/CRE 18.3 RATIO Normal 10-20 [facility] Comment on above: Performed By: #### L 500.2500, L100.0100 ####[facility] [address] [place], [address] CA,Total 9.7 mg/dL Normal 8.5-10.1 [facility] Comment on above: Performed By: #### L 500.2500, L100.0100 ####[facility] [address] [place], [address] Chloride [Moles/Vol] 103 mmol/L Normal 98-107 [facility] Comment on above: Performed By: #### L 500.2500, L100.0100 ####[facility] [address] [place], [address] CO2 [Moles/Vol] 26.0 mmol/L Normal 21.0-32.0 [facility] Comment on above: Performed By: #### L 500.2500, L100.0100 ####[facility] [address] [place], [address] Creatinine [Mass/Vol] 1.04 mg/dL Normal 0.70-1.30 [facility] Comment on above: Result Comment: The validity of the calculated GFR GFRAA in patients over70 years has not been determined. Clinical correlation isessential. Performed By: #### L 500.2500, L100.0100 ####[facility] [address] [place], [address] ECRCL 52.96 ml/min Normal [facility] Comment on above: Performed By: #### L 500.2500, L100.0100 ####[facility] [address] [place], [address] EST GFR - AA 88 mL/min Normal >60 [facility] Comment on above: Result Comment: Afri can [place] GFR Calc Performed By: #### L 500.2500, L100.0100 ####[facility] [address] [place], [address] GAP 7 Normal 5-15 [facility] Comment on above: Performed By: #### L 500.2500, L100.0100 ####[facility] [address] [place], [address] GFR/1.73 sq M.predicted among non-blacks MDRD (S/P/Bld) [Vol rate/Area] 73 mL/min/{1.73_m2} Normal >60 [facility] Comment on above: Result Comment: Non- GFR Calc Performed By: #### L 500.2500, L100.0100 ####[facility] [address] [place], [address] Glucose [Mass/Vol] 101 mg/dL Normal 74-106 [facility] Comment on above: Result Comment: Fast ing Glucose result from 100 to 125 mg/dLsuggests IMPAIRED HOMEOSTASIS per A.D.A. criteria. Performed By: #### L 500.2500, L100.0100 ####[facility] [address] [place], [address] Potassium [Moles/Vol] 4.1 mmol/L Normal 3.5-5.1 [facility] Comment on above: Performed By: #### L 500.2500, L100.0100 ####[facility] [address] [place], [address] Sodium [Moles/Vol] 136 mmol/L Normal 136-145 [facility] Comment on above: Performed By: #### L 500.2500, L100.0100 ####[facility] [address] [place], [address] Urea nitrogen [Mass/Vol] 19 mg/dL High 7-18 [facility] Comment on above: Performed By: #### L 500.2500, L100.0100 ####[facility] [address] [place], [address] CBC W/Diff, Automatedon 11-0 7-4 Absolute Lymph 1.13 X10 3/uL Normal 0.83-4.51 [facility] Comment on above: Performed By: #### L 500.2500, L100.0100 ####[facility] [address] [place], [address] Absolute Neut 3.7 X10 3/uL Normal 2.0-7.7 [facility] Comment on above: Performed By: #### L 500.2500, L100.0100 ####[facility] [address] [place], [address] Basophils/100 WBC (Bld) 0.4 % Normal 0-1 [facility] Comment on above: Performed By: #### L 500.2500, L100.0100 ####[facility] [address] [place], [address] Eosinophils/100 WBC (Bld) 4.1 % Normal 0-5 [facility] Comment on above: Performed By: #### L 500.2500, L100.0100 ####[facility] [address] [place], [address] Erythrocyte distribution width (RBC) [Ratio] 18.9 % High 11.6-14.6 [facility] Comment on above: Performed By: #### L 500.2500, L100.0100 ####[facility] [address] [place], [address] Hematocrit (Bld) [Volume fraction] 35.0 % Low 40-54 [facility] Comment on above: Performed By: #### L 500.2500, L100.0100 ####[facility] [address] [place], [address] Hemoglobin (Bld) [Mass/Vol] 11.1 g/dL Low 13.0-16.5 [facility] Comment on above: Performed By: #### L 500.2500, L100.0100 ####[facility] [address] [place], [address] IG% 0.400 Normal 0.0-0.9 [facility] Comment on above: Result Comment: IG% - Immature Granulocytes (promyelocytes, myelocytes andmetamyelocytes) > 1% indicates that a LEFT SHIFT is Present. Performed By: #### L 500.2500, L100.0100 ####[facility] [address] [place], [address] Lymphocytes/100 WBC (Bld) 20.0 % Normal 19-41 [facility] Comment on above: Performed By: #### L 500.2500, L100.0100 ####[facility] [address] [place], [address] MCH (RBC) [Entitic mass] 27.1 pg Normal 27.0-32.0 [facility] Comment on above: Performed By: #### L 500.2500, L100.0100 ####[facility] [address] [place], [address] MCHC (RBC) [Mass/Vol] 31.7 g/dL Low 32-36 [facility] Comment on above: Performed By: #### L 500.2500, L100.0100 ####[facility] [address] [place], [address] MCV (RBC) [Entitic vol] 85.4 fL Normal 80-94 [facility] Comment on above: Performed By: #### L 500.2500, L100.0100 ####[facility] [address] [place], [address] Monocytes/100 WBC (Bld) 10.4 % High 0-10 [facility] Comment on above: Performed By: #### L 500.2500, L100.0100 ####[facility] [address] [place], [address] Neutrophils/100 WBC (Bld) 64.7 % Normal 47-70 [facility] Comment on above: Performed By: #### L 500.2500, L100.0100 ####[facility] [address] [place], [address] Nucleated RBC (Bld) [#/Vol] 0 10*3/uL Normal 0-5 [facility] Comment on above: Performed By: #### L 500.2500, L100.0100 ####[facility] [address] [place], [address] Platelet mean volume (Bld) [Entitic vol] 9.5 fL Normal 6.2-12.0 [facility] Comment on above: Performed By: #### L 500.2500, L100.0100 ####[facility] [address] [place], [address] Platelets (Bld) [#/Vol] 301 10*3/uL Normal 150-450 [facility] Comment on above: Performed By: #### L 500.2500, L100.0100 ####[facility] [address] [place], [address] RBC (Bld) [#/Vol] 4.10 10*6/uL Low 4.6-6.2 [facility] Comment on above: Performed By: #### L 500.2500, L100.0100 ####[facility] [address] [place], [address] RDW SD 57.8 fl High 35.1-43.9 [facility] Comment on above: Performed By: #### L 500.2500, L100.0100 ####[facility] [address] [place], [address] WBC (Bld) [#/Vol] 5.7 10*3/uL Normal 4.4-11.0 [facility] Comment on above: Performed By: #### L 500.2500, L100.0100 ####[facility] [address] [place], [address] Emergency Department Summary on 06-07-2024 Emergency Department Summary Normal [facility] Surgery Visit Reporton 06-07 Surgery Visit Report Normal [facility] Oncology Visit Reporton 05-03 Oncology Visit Report Normal [facility] PET/CT Tumor Base -Thigh Ini ton 05-29-2024 PET/CT Tumor Base -Thigh Init Normal [facility] Carcinoembryonic Antigenon 1 CEA 2.2 ng/mL Normal 0.0-4.7 [facility] Comment on above: Order Comment: Speci men Comment: A duplicate report has been generateddue to demographicSpecimen Comment: updates. Result Comment: Nons mokers <3.9 Smokers <5.6[employer] Electrochemiluminescence Immunoassay(ECLIA)Values obtained with different assay methods or kitscannot be used interchangeably. Results cannot beinterpreted as absolute evidence of the presence orabsence of malignant disease.Performed at: [facility] [address] [id number] Director: Jian Paredes PhD, Phone: [phone] Performed By: #### L 3100.2300, L503.6550 ####[facility] [address] [facility] [place], [address] C-reactive protein measureme nt by high sensitivity methodOrdered By: Papi Hernandez on 05-16-2024 C-Reactive Protein Extended Range 5.71 mg/L High 0.0-3.0 [facility] Comment on above: C-Reactive Protein ( CRP) provides useful information for thediagnosis, therapy and monitoring of inflammatory processesand associated diseases. For the evaluation of Relative Riskfor Cardiovascular Disease, a High Sensitivity CRP (HSCRP)should be ordered. C-reactive protein measurement by high sensitivity method 5.71 mg/L High 0.0-3.0 [facility] Comment on above: C-Reactive Protein ( CRP) provides useful information for thediagnosis, therapy and monitoring of inflammatory processesand associated diseases. For the evaluation of Relative Riskfor Cardiovascular Disease, a High Sensitivity CRP (HSCRP)should be ordered. CBC W/Diff, Automatedon 05-01 Absolute Lymph 1.28 X10 3/uL Normal 0.83-4.51 [facility] Comment on above: Performed By: #### L 101.9900, L100.9950, L503.6030, L501.6710, L100.0100, L500.4050, L900.0098 ####[facility] [address] [place], [address] Absolute Neut 3.8 X10 3/uL Normal 2.0-7.7 [facility] Comment on above: Performed By: #### L 101.9900, L100.9950, L503.6030, L501.6710, L100.0100, L500.4050, L900.0098 ####[facility] [address] [place], [address] Basophils/100 WBC (Bld) 0.3 % Normal 0-1 [facility] Comment on above: Performed By: #### L 101.9900, L100.9950, L503.6030, L501.6710, L100.0100, L500.4050, L900.0098 ####[facility] [address] [place], [address] Eosinophils/100 WBC (Bld) 2.6 % Normal 0-5 [facility] Comment on above: Performed By: #### L 101.9900, L100.9950, L503.6030, L501.6710, L100.0100, L500.4050, L900.0098 ####[facility] [address] [place], [address] Erythrocyte distribution width (RBC) [Ratio] 14.2 % Normal 11.6-14.6 [facility] Comment on above: Performed By: #### L 101.9900, L100.9950, L503.6030, L501.6710, L100.0100, L500.4050, L900.0098 ####[facility] [address] [place], [address] Hematocrit (Bld) [Volume fraction] 30.5 % Low 40-54 [facility] Comment on above: Performed By: #### L 101.9900, L100.9950, L503.6030, L501.6710, L100.0100, L500.4050, L900.0098 ####[facility] [address] [place], [address] Hemoglobin (Bld) [Mass/Vol] 9.6 g/dL Low 13.0-16.5 [facility] Comment on above: Performed By: #### L 101.9900, L100.9950, L503.6030, L501.6710, L100.0100, L500.4050, L900.0098 ####[facility] [address] [place], [address] IG% 0.300 Normal 0.0-0.9 [facility] Comment on above: Result Comment: IG% - Immature Granulocytes (promyelocytes, myelocytes andmetamyelocytes) > 1% indicates that a LEFT SHIFT is Present. Performed By: #### L 101.9900, L100.9950, L503.6030, L501.6710, L100.0100, L500.4050, L900.0098 ####[facility] [address] [place], [address] Lymphocytes/100 WBC (Bld) 21.9 % Normal 19-41 [facility] Comment on above: Performed By: #### L 101.9900, L100.9950, L503.6030, L501.6710, L100.0100, L500.4050, L900.0098 ####[facility] [address] [place], [address] MCH (RBC) [Entitic mass] 25.9 pg Low 27.0-32.0 [facility] Comment on above: Performed By: #### L 101.9900, L100.9950, L503.6030, L501.6710, L100.0100, L500.4050, L900.0098 ####[facility] [address] [place], [address] MCHC (RBC) [Mass/Vol] 31.5 g/dL Low 32-36 [facility] Comment on above: Performed By: #### L 101.9900, L100.9950, L503.6030, L501.6710, L100.0100, L500.4050, L900.0098 ####[facility] [address] [place], [address] MCV (RBC) [Entitic vol] 82.2 fL Normal 80-94 [facility] Comment on above: Performed By: #### L 101.9900, L100.9950, L503.6030, L501.6710, L100.0100, L500.4050, L900.0098 ####[facility] [address] [place], [address] Monocytes/100 WBC (Bld) 9.6 % Normal 0-10 [facility] Comment on above: Performed By: #### L 101.9900, L100.9950, L503.6030, L501.6710, L100.0100, L500.4050, L900.0098 ####[facility] [address] [place], [address] Neutrophils/100 WBC (Bld) 65.3 % Normal 47-70 [facility] Comment on above: Performed By: #### L 101.9900, L100.9950, L503.6030, L501.6710, L100.0100, L500.4050, L900.0098 ####[facility] [address] [place], [address] Nucleated RBC (Bld) [#/Vol] 0 10*3/uL Normal 0-5 [facility] Comment on above: Performed By: #### L 101.9900, L100.9950, L503.6030, L501.6710, L100.0100, L500.4050, L900.0098 ####[facility] [address] [place], [address] Platelet mean volume (Bld) [Entitic vol] 9.1 fL Normal 6.2-12.0 [facility] Comment on above: Performed By: #### L 101.9900, L100.9950, L503.6030, L501.6710, L100.0100, L500.4050, L900.0098 ####[facility] [address] [place], [address] Platelets (Bld) [#/Vol] 373 10*3/uL Normal 150-450 [facility] Comment on above: Performed By: #### L 101.9900, L100.9950, L503.6030, L501.6710, L100.0100, L500.4050, L900.0098 ####[facility] [address] [place], [address] RBC (Bld) [#/Vol] 3.71 10*6/uL Low 4.6-6.2 [facility] Comment on above: Performed By: #### L 101.9900, L100.9950, L503.6030, L501.6710, L100.0100, L500.4050, L900.0098 ####[facility] [address] [place], [address] RDW SD 42.2 fl Normal 35.1-43.9 [facility] Comment on above: Performed By: #### L 101.9900, L100.9950, L503.6030, L501.6710, L100.0100, L500.4050, L900.0098 ####[facility] [address] [place], [address] WBC (Bld) [#/Vol] 5.8 10*3/uL Normal 4.4-11.0 [facility] Comment on above: Performed By: #### L 101.9900, L100.9950, L503.6030, L501.6710, L100.0100, L500.4050, L900.0098 ####[facility] [address] [place], [address] CRPon 05-16-2024 C-REACTIVE PROT 5.71 mg/L High 0.0-3.0 [facility] Comment on above: Result Comment: C-Re active Protein (CRP) provides useful information for thediagnosis, therapy and monitoring of inflammatory processesand associated diseases. For the evaluation of Relative Riskfor Cardiovascular Disease, a High Sensitivity CRP (HSCRP)should be ordered. Performed By: #### L 101.9900, L100.9950, L503.6030, L501.6710, L100.0100, L500.4050, L900.0098 ####[facility] [address] [place], [address] Comprehensive Metabolic Prof ilon 05-16-2024 Albumin [Mass/Vol] 3.9 g/dL Normal 3.2-5.0 [facility] Comment on above: Performed By: #### L 101.9900, L100.9950, L503.6030, L501.6710, L100.0100, L500.4050, L900.0098 ####[facility] [address] [place], [place], [address] Albumin/Globulin [Mass ratio] 1.1 {ratio} Normal 0.9-2.4 [facility] Comment on above: Performed By: #### L 101.9900, L100.9950, L503.6030, L501.6710, L100.0100, L500.4050, L900.0098 ####[facility] [address] [place], [address] ALK P 101 U/L Normal 45-117 [facility] Comment on above: Performed By: #### L 101.9900, L100.9950, L503.6030, L501.6710, L100.0100, L500.4050, L900.0098 ####[facility] [address] [place], [address] ALT [Catalytic activity/Vol] 19 U/L Normal 16-61 [facility] Comment on above: Performed By: #### L 101.9900, L100.9950, L503.6030, L501.6710, L100.0100, L500.4050, L900.0098 ####[facility] [address] [place], [address] AST [Catalytic activity/Vol] 15 U/L Normal 15-37 [facility] Comment on above: Performed By: #### L 101.9900, L100.9950, L503.6030, L501.6710, L100.0100, L500.4050, L900.0098 ####[facility] [address] [place], [address] Bilirubin [Mass/Vol] 0.50 mg/dL Normal 0.20-1.00 [facility] Comment on above: Result Comment: For patients on eltrombopag therapy, use of Dimension [place] TBIL is not recommended. Performed By: #### L 101.9900, L100.9950, L503.6030, L501.6710, L100.0100, L500.4050, L900.0098 ####[facility] [address] [place], [address] BUN/CRE 16.7 RATIO Normal 10-20 [facility] Comment on above: Performed By: #### L 101.9900, L100.9950, L503.6030, L501.6710, L100.0100, L500.4050, L900.0098 ####[facility] [address] [place], [address] CA,Total 9.6 mg/dL Normal 8.5-10.1 [facility] Comment on above: Performed By: #### L 101.9900, L100.9950, L503.6030, L501.6710, L100.0100, L500.4050, L900.0098 ####[facility] [address] [place], [address] Chloride [Moles/Vol] 105 mmol/L Normal 98-107 [facility] Comment on above: Performed By: #### L 101.9900, L100.9950, L503.6030, L501.6710, L100.0100, L500.4050, L900.0098 ####[facility] [address] [place], [address] CO2 [Moles/Vol] 26.0 mmol/L Normal 21.0-32.0 [facility] Comment on above: Performed By: #### L 101.9900, L100.9950, L503.6030, L501.6710, L100.0100, L500.4050, L900.0098 ####[facility] [address] [place], [address] Creatinine [Mass/Vol] 1.14 mg/dL Normal 0.70-1.30 [facility] Comment on above: Result Comment: The validity of the calculated GFR GFRAA in patients over70 years has not been determined. Clinical correlation isessential. Performed By: #### L 101.9900, L100.9950, L503.6030, L501.6710, L100.0100, L500.4050, L900.0098 ####[facility] [address] [place], [address] EST GFR - AA 79 mL/min Normal >60 [facility] Comment on above: Result Comment: Afri can [place] GFR Calc Performed By: #### L 101.9900, L100.9950, L503.6030, L501.6710, L100.0100, L500.4050, L900.0098 ####[facility] [address] [place], [address] GAP 4 Low 5-15 [facility] Comment on above: Performed By: #### L 101.9900, L100.9950, L503.6030, L501.6710, L100.0100, L500.4050, L900.0098 ####[facility] [address] [place], [address] GFR/1.73 sq M.predicted among non-blacks MDRD (S/P/Bld) [Vol rate/Area] 66 mL/min/{1.73_m2} Normal >60 [facility] Comment on above: Result Comment: Non- GFR Calc Performed By: #### L 101.9900, L100.9950, L503.6030, L501.6710, L100.0100, L500.4050, L900.0098 ####[facility] [address] [place], [address] Globulin (S) [Mass/Vol] 3.7 g/dL Normal 2.2-4.2 [facility] Comment on above: Performed By: #### L 101.9900, L100.9950, L503.6030, L501.6710, L100.0100, L500.4050, L900.0098 ####[facility] [address] [place], [address] Glucose [Mass/Vol] 102 mg/dL Normal 74-106 [facility] Comment on above: Result Comment: Fast ing Glucose result from 100 to 125 mg/dLsuggests IMPAIRED HOMEOSTASIS per A.D.A. criteria. Performed By: #### L 101.9900, L100.9950, L503.6030, L501.6710, L100.0100, L500.4050, L900.0098 ####[facility] [address] [place], [address] Potassium [Moles/Vol] 4.4 mmol/L Normal 3.5-5.1 [facility] Comment on above: Performed By: #### L 101.9900, L100.9950, L503.6030, L501.6710, L100.0100, L500.4050, L900.0098 ####[facility] [address] [place], [address] Sodium [Moles/Vol] 135 mmol/L Low 136-145 [facility] Comment on above: Performed By: #### L 101.9900, L100.9950, L503.6030, L501.6710, L100.0100, L500.4050, L900.0098 ####[facility] [address] [place], [address] T PROT 7.6 g/dL Normal 6.4-8.2 [facility] Comment on above: Performed By: #### L 101.9900, L100.9950, L503.6030, L501.6710, L100.0100, L500.4050, L900.0098 ####[facility] [address] [place], [address] Urea nitrogen [Mass/Vol] 19 mg/dL High 7-18 [facility] Comment on above: Performed By: #### L 101.9900, L100.9950, L503.6030, L501.6710, L100.0100, L500.4050, L900.0098 ####[facility] [address] [place], [address] Erythrocyte Sed Rateon 05-16 SED RATE 13 mm/hr Normal 0-20 [facility] Comment on above: Performed By: #### L 101.9900, L100.9950, L503.6030, L501.6710, L100.0100, L500.4050, L900.0098 ####[facility] [address] [place], [address] Erythrocyte sedimentation ra teOrdered By: Papi Hernandez on 05-16-2024 ESR (Bld) [Velocity] 13 mm/h 0-20 [facility] Ferritinon 05-16-2024 Ferritin [Mass/Vol] 31 ng/mL Normal 26-388 [facility] Comment on above: Performed By: #### L 3100.2300, L503.6550 ####[facility] [address] [place], [place], [id number] Ferritin measurementOrdered By: Papi Hernandez on 05-16-2024 Ferritin [Mass/Vol] 31 ng/mL 26-388 [facility] Hemoglobin (Reticulocytes) [ Entitic mass]Ordered By: Papi Hernandez on 05-16-2024 Reticulocyte Hemoglobin Equivalent 27.6 pg Low 30-35 [facility] Immature reticulocyte fracti onOrdered By: Papi Hernandez on 05-16-2024 Immature Reticulocyte Fraction 16.60 % High 3.00-15.90 [facility] Iron (Unsp spec) [Mass/Mass] Ordered By: Papi Hernandez on 05-16-2024 Iron [Mass/Vol] 29 ug/dL Low 65-175 [facility] Iron measurement (mass/mass) Ordered By: Papi Hernandez on 05-16-2024 Iron (Unsp spec) [Mass/Mass] 29 ug/dL Low 65-175 [facility] Iron saturation [Mass fracti on]Ordered By: Papi Hernandez on 05-16-2024 Iron Saturation 7.2 % Low 15.0-55.0 [facility] Iron+Iron Binding Capacityon 05-16-2024 Iron [Mass/Vol] 29 ug/dL Low 65-175 [facility] Comment on above: Performed By: #### L 101.9900, L100.9950, L503.6030, L501.6710, L100.0100, L500.4050, L900.0098 ####[facility] [address] [place], [place], [id number] IRON SATURATION 7.2 Low 15.0-55.0 [facility] Comment on above: Performed By: #### L 101.9900, L100.9950, L503.6030, L501.6710, L100.0100, L500.4050, L900.0098 ####[facility] [address] [place], [place], [id number] TIBC 401 ug/dL Normal 250-450 [facility] Comment on above: Performed By: #### L 101.9900, L100.9950, L503.6030, L501.6710, L100.0100, L500.4050, L900.0098 ####[facility] [address] [place], [place], [id number] NATERAon 05-16-2024 NATURA SEE SCANNED REPORT Normal [facility] Comment on above: Performed By: #### L 101.9900, L100.9950, L503.6030, L501.6710, L100.0100, L500.4050, L900.0098 ####[facility] [address] [place], [place], [id number] Oncology Visit Reporton 05-01 Oncology Visit Report Normal [facility] Retic Panelon 05-16-2024 IM RET FRACTION 16.60 High 3.00-15.90 [facility] Comment on above: Performed By: #### L 101.9900, L100.9950, L503.6030, L501.6710, L100.0100, L500.4050, L900.0098 ####[facility] [address] [place], [place], [id number] RET-HE 27.6 pg Low 30-35 [facility] Comment on above: Performed By: #### L 101.9900, L100.9950, L503.6030, L501.6710, L100.0100, L500.4050, L900.0098 ####[facility] [address] [place], [address] Retic Count 1.19 Normal 0.5-1.5 [facility] Comment on above: Performed By: #### L 101.9900, L100.9950, L503.6030, L501.6710, L100.0100, L500.4050, L900.0098 ####[facility] [address] [place], [address] Reticulocyte hemoglobin equi valent (RET-He) measurementOrdered By: Papi Hernandez on 05-16-2024 Hemoglobin (Reticulocytes) [Entitic mass] 27.6 pg Low 30-35 [facility] Reticulocytes Auto (Bld) [#/ Vol]Ordered By: Papi Hernandez on 05-16-2024 Reticulocyte Count 1.19 % 0.5-1.5 [facility] Reticulocytes/100 RBC (Bld) 1.19 % 0.5-1.5 [facility] Serum or plasma iron saturat ion measurement (mass fraction)Ordered By: Papi Hernandez on 05-16-2024 Iron saturation [Mass fraction] 7.2 % Low 15.0-55.0 [facility] TIBCOrdered By: Papi Hernandez on 05-16-2024 Total Iron Binding Capacity 401 ug/dL 250-450 [facility] Surgery Visit Reporton 05-10 Surgery Visit Report Normal [facility] Basic Metabolic Profile (BMP )on 05-07-2024 BUN/CRE 13.7 RATIO Normal 10-20 [facility] Comment on above: Performed By: #### L 100.0100, L500.2500 ####[facility] [address] [place], [address] CA,Total 9.5 mg/dL Normal 8.5-10.1 [facility] Comment on above: Performed By: #### L 100.0100, L500.2500 ####[facility] [address] [place], [address] Chloride [Moles/Vol] 103 mmol/L Normal 98-107 [facility] Comment on above: Performed By: #### L 100.0100, L500.2500 ####[facility] [address] [place], [address] CO2 [Moles/Vol] 25.0 mmol/L Normal 21.0-32.0 [facility] Comment on above: Performed By: #### L 100.0100, L500.2500 ####[facility] [address] [place], [address] Creatinine [Mass/Vol] 1.17 mg/dL Normal 0.70-1.30 [facility] Comment on above: Result Comment: The validity of the calculated GFR GFRAA in patients over70 years has not been determined. Clinical correlation isessential. Performed By: #### L 100.0100, L500.2500 ####[facility] [address] [place], [address] EST GFR - AA 77 mL/min Normal >60 [facility] Comment on above: Result Comment: Afri can [place] GFR Calc Performed By: #### L 100.0100, L500.2500 ####[facility] [address] [place], [address] GAP 7 Normal 5-15 [facility] Comment on above: Performed By: #### L 100.0100, L500.2500 ####[facility] [address] [place], [address] GFR/1.73 sq M.predicted among non-blacks MDRD (S/P/Bld) [Vol rate/Area] 64 mL/min/{1.73_m2} Normal >60 [facility] Comment on above: Result Comment: Non- GFR Calc Performed By: #### L 100.0100, L500.2500 ####[facility] [address] [place], [address] Glucose [Mass/Vol] 112 mg/dL High 74-106 [facility] Comment on above: Result Comment: Fast ing Glucose result from 100 to 125 mg/dLsuggests IMPAIRED HOMEOSTASIS per A.D.A. criteria. Performed By: #### L 100.0100, L500.2500 ####[facility] [address] [place], [address] Potassium [Moles/Vol] 4.6 mmol/L Normal 3.5-5.1 [facility] Comment on above: Performed By: #### L 100.0100, L500.2500 ####[facility] [address] [place], [address] Sodium [Moles/Vol] 135 mmol/L Low 136-145 [facility] Comment on above: Performed By: #### L 100.0100, L500.2500 ####[facility] [address] [place], [address] Urea nitrogen [Mass/Vol] 16 mg/dL Normal 7-18 [facility] Comment on above: Performed By: #### L 100.0100, L500.2500 ####[facility] [address] [place], [address] CBC W/Diff, Automatedon 10-0 7-2023 Absolute Lymph 1.28 X10 3/uL Normal 0.83-4.51 [facility] Comment on above: Performed By: #### L 100.0100, L500.2500 ####[facility] [address] [place], [address] Absolute Neut 3.6 X10 3/uL Normal 2.0-7.7 [facility] Comment on above: Performed By: #### L 100.0100, L500.2500 ####[facility] [address] [place], [address] Basophils/100 WBC (Bld) 0.4 % Normal 0-1 [facility] Comment on above: Performed By: #### L 100.0100, L500.2500 ####[facility] [address] [place], [address] Eosinophils/100 WBC (Bld) 1.8 % Normal 0-5 [facility] Comment on above: Performed By: #### L 100.0100, L500.2500 ####[facility] [address] [place], [address] Erythrocyte distribution width (RBC) [Ratio] 14.3 % Normal 11.6-14.6 [facility] Comment on above: Performed By: #### L 100.0100, L500.2500 ####[facility] [address] [place], [address] Hematocrit (Bld) [Volume fraction] 29.4 % Low 40-54 [facility] Comment on above: Performed By: #### L 100.0100, L500.2500 ####[facility] [address] [place], [address] Hemoglobin (Bld) [Mass/Vol] 8.8 g/dL Low 13.0-16.5 [facility] Comment on above: Performed By: #### L 100.0100, L500.2500 ####[facility] [address] [place], [address] IG% 0.500 Normal 0.0-0.9 [facility] Comment on above: Result Comment: IG% - Immature Granulocytes (promyelocytes, myelocytes andmetamyelocytes) > 1% indicates that a LEFT SHIFT is Present. Performed By: #### L 100.0100, L500.2500 ####[facility] [address] [place], [address] Lymphocytes/100 WBC (Bld) 23.0 % Normal 19-41 [facility] Comment on above: Performed By: #### L 100.0100, L500.2500 ####[facility] [address] [place], [address] MCH (RBC) [Entitic mass] 25.4 pg Low 27.0-32.0 [facility] Comment on above: Performed By: #### L 100.0100, L500.2500 ####[facility] [address] [place], [address] MCHC (RBC) [Mass/Vol] 29.9 g/dL Low 32-36 [facility] Comment on above: Performed By: #### L 100.0100, L500.2500 ####[facility] [address] [place], [address] MCV (RBC) [Entitic vol] 85.0 fL Normal 80-94 [facility] Comment on above: Performed By: #### L 100.0100, L500.2500 ####[facility] [address] [place], [address] Monocytes/100 WBC (Bld) 10.4 % High 0-10 [facility] Comment on above: Performed By: #### L 100.0100, L500.2500 ####[facility] [address] [place], [address] Neutrophils/100 WBC (Bld) 63.9 % Normal 47-70 [facility] Comment on above: Performed By: #### L 100.0100, L500.2500 ####[facility] [address] [place], [address] Nucleated RBC (Bld) [#/Vol] 0 10*3/uL Normal 0-5 [facility] Comment on above: Performed By: #### L 100.0100, L500.2500 ####[facility] [address] [place], [address] Platelet mean volume (Bld) [Entitic vol] 9.8 fL Normal 6.2-12.0 [facility] Comment on above: Performed By: #### L 100.0100, L500.2500 ####[facility] [address] [place], [address] Platelets (Bld) [#/Vol] 416 10*3/uL Normal 150-450 [facility] Comment on above: Performed By: #### L 100.0100, L500.2500 ####[facility] [address] [place], [address] RBC (Bld) [#/Vol] 3.46 10*6/uL Low 4.6-6.2 [facility] Comment on above: Performed By: #### L 100.0100, L500.2500 ####[facility] [address] [place], [address] RDW SD 44.5 fl High 35.1-43.9 [facility] Comment on above: Performed By: #### L 100.0100, L500.2500 ####[facility] [address] [place], [address] WBC (Bld) [#/Vol] 5.6 10*3/uL Normal 4.4-11.0 [facility] Comment on above: Performed By: #### L 100.0100, L500.2500 ####[facility] [address] [place], [address] Basic Metabolic Profile (BMP )on 05-01-2024 BUN/CRE 16.2 RATIO Normal 10-20 [facility] Comment on above: Performed By: #### L 100.0100, L500.2500 ####[facility] [address] [place], [address] CA,Total 9.3 mg/dL Normal 8.5-10.1 [facility] Comment on above: Performed By: #### L 100.0100, L500.2500 ####[facility] [address] [place], [address] Chloride [Moles/Vol] 96 mmol/L Low 98-107 [facility] Comment on above: Performed By: #### L 100.0100, L500.2500 ####[facility] [address] [place], [address] CO2 [Moles/Vol] 24.0 mmol/L Normal 21.0-32.0 [facility] Comment on above: Performed By: #### L 100.0100, L500.2500 ####[facility] [address] [place], [address] Creatinine [Mass/Vol] 1.30 mg/dL Normal 0.70-1.30 [facility] Comment on above: Result Comment: The validity of the calculated GFR GFRAA in patients over70 years has not been determined. Clinical correlation isessential. Performed By: #### L 100.0100, L500.2500 ####[facility] [address] [place], [address] ECRCL 42.37 ml/min Normal [facility] Comment on above: Performed By: #### L 100.0100, L500.2500 ####[facility] [address] [place], [address] EST GFR - AA 68 mL/min Normal >60 [facility] Comment on above: Result Comment: Afri can [place] GFR Calc Performed By: #### L 100.0100, L500.2500 ####[facility] [address] [place], [address] GAP 9 Normal 5-15 [facility] Comment on above: Performed By: #### L 100.0100, L500.2500 ####[facility] [address] [place], [address] GFR/1.73 sq M.predicted among non-blacks MDRD (S/P/Bld) [Vol rate/Area] 56 mL/min/{1.73_m2} Low >60 [facility] Comment on above: Result Comment: Non- GFR Calc Performed By: #### L 100.0100, L500.2500 ####[facility] [address] [place], [address] Glucose [Mass/Vol] 111 mg/dL High 74-106 [facility] Comment on above: Result Comment: Fast ing Glucose result from 100 to 125 mg/dLsuggests IMPAIRED HOMEOSTASIS per A.D.A. criteria. Performed By: #### L 100.0100, L500.2500 ####[facility] [address] [place], [address] Potassium [Moles/Vol] 4.2 mmol/L Normal 3.5-5.1 [facility] Comment on above: Performed By: #### L 100.0100, L500.2500 ####[facility] [address] [place], [address] Sodium [Moles/Vol] 128 mmol/L Low 136-145 [facility] Comment on above: Performed By: #### L 100.0100, L500.2500 ####[facility] [address] [place], [address] Urea nitrogen [Mass/Vol] 21 mg/dL High 7-18 [facility] Comment on above: Performed By: #### L 100.0100, L500.2500 ####[facility] [address] [place], [address] CBC W/Diff, Automatedon 10-0 1-4 Absolute Lymph 1.58 X10 3/uL Normal 0.83-4.51 [facility] Comment on above: Performed By: #### L 100.0100, L500.2500 ####[facility] [address] [place], [address] Absolute Neut 6.7 X10 3/uL Normal 2.0-7.7 [facility] Comment on above: Performed By: #### L 100.0100, L500.2500 ####[facility] [address] [place], [address] Basophils/100 WBC (Bld) 0.3 % Normal 0-1 [facility] Comment on above: Performed By: #### L 100.0100, L500.2500 ####[facility] [address] [place], [address] Eosinophils/100 WBC (Bld) 3.0 % Normal 0-5 [facility] Comment on above: Performed By: #### L 100.0100, L500.2500 ####[facility] [address] [place], [address] Erythrocyte distribution width (RBC) [Ratio] 14.2 % Normal 11.6-14.6 [facility] Comment on above: Performed By: #### L 100.0100, L500.2500 ####[facility] [address] [place], [address] Hematocrit (Bld) [Volume fraction] 30.5 % Low 40-54 [facility] Comment on above: Performed By: #### L 100.0100, L500.2500 ####[facility] [address] [place], [address] Hemoglobin (Bld) [Mass/Vol] 9.5 g/dL Low 13.0-16.5 [facility] Comment on above: Performed By: #### L 100.0100, L500.2500 ####[facility] [address] [place], [address] IG% 0.800 Normal 0.0-0.9 [facility] Comment on above: Result Comment: IG% - Immature Granulocytes (promyelocytes, myelocytes andmetamyelocytes) > 1% indicates that a LEFT SHIFT is Present. Performed By: #### L 100.0100, L500.2500 ####[facility] [address] [place], [address] Lymphocytes/100 WBC (Bld) 16.4 % Low 19-41 [facility] Comment on above: Performed By: #### L 100.0100, L500.2500 ####[facility] [address] [place], [address] MCH (RBC) [Entitic mass] 25.7 pg Low 27.0-32.0 [facility] Comment on above: Performed By: #### L 100.0100, L500.2500 ####[facility] [address] [place], [address] MCHC (RBC) [Mass/Vol] 31.1 g/dL Low 32-36 [facility] Comment on above: Performed By: #### L 100.0100, L500.2500 ####[facility] [address] [place], [address] MCV (RBC) [Entitic vol] 82.4 fL Normal 80-94 [facility] Comment on above: Performed By: #### L 100.0100, L500.2500 ####[facility] [address] [place], [address] Monocytes/100 WBC (Bld) 9.7 % Normal 0-10 [facility] Comment on above: Performed By: #### L 100.0100, L500.2500 ####[facility] [address] [place], [address] Neutrophils/100 WBC (Bld) 69.8 % Normal 47-70 [facility] Comment on above: Performed By: #### L 100.0100, L500.2500 ####[facility] [address] [place], [address] Nucleated RBC (Bld) [#/Vol] 0 10*3/uL Normal 0-5 [facility] Comment on above: Performed By: #### L 100.0100, L500.2500 ####[facility] [address] [place], [address] Platelet mean volume (Bld) [Entitic vol] 9.7 fL Normal 6.2-12.0 [facility] Comment on above: Performed By: #### L 100.0100, L500.2500 ####[facility] [address] [place], [address] Platelets (Bld) [#/Vol] 440 10*3/uL Normal 150-450 [facility] Comment on above: Performed By: #### L 100.0100, L500.2500 ####[facility] [address] [place], [address] RBC (Bld) [#/Vol] 3.70 10*6/uL Low 4.6-6.2 [facility] Comment on above: Performed By: #### L 100.0100, L500.2500 ####[facility] [address] [place], [address] RDW SD 42.2 fl Normal 35.1-43.9 [facility] Comment on above: Performed By: #### L 100.0100, L500.2500 ####[facility] [address] [place], [address] WBC (Bld) [#/Vol] 9.7 10*3/uL Normal 4.4-11.0 [facility] Comment on above: Performed By: #### L 100.0100, L500.2500 ####[facility] [address] [place], [address] Basic Metabolic Profile (BMP )on 04-30-2024 BUN/CRE 15.6 RATIO Normal 10-20 [facility] Comment on above: Performed By: #### L 100.0100, L500.2500 ####[facility] [address] [place], [address] CA,Total 9.0 mg/dL Normal 8.5-10.1 [facility] Comment on above: Performed By: #### L 100.0100, L500.2500 ####[facility] [address] [place], [address] Chloride [Moles/Vol] 101 mmol/L Normal 98-107 [facility] Comment on above: Performed By: #### L 100.0100, L500.2500 ####[facility] [address] [place], [address] CO2 [Moles/Vol] 24.0 mmol/L Normal 21.0-32.0 [facility] Comment on above: Performed By: #### L 100.0100, L500.2500 ####[facility] [address] [place], [address] Creatinine [Mass/Vol] 1.09 mg/dL Normal 0.70-1.30 [facility] Comment on above: Result Comment: The validity of the calculated GFR GFRAA in patients over70 years has not been determined. Clinical correlation isessential. Performed By: #### L 100.0100, L500.2500 ####[facility] [address] [place], [address] ECRCL 50.54 ml/min Normal [facility] Comment on above: Performed By: #### L 100.0100, L500.2500 ####[facility] [address] [place], [address] EST GFR - AA 84 mL/min Normal >60 [facility] Comment on above: Result Comment: Afri can [place] GFR Calc Performed By: #### L 100.0100, L500.2500 ####[facility] [address] [place], [address] GAP 9 Normal 5-15 [facility] Comment on above: Performed By: #### L 100.0100, L500.2500 ####[facility] [address] [place], [address] GFR/1.73 sq M.predicted among non-blacks MDRD (S/P/Bld) [Vol rate/Area] 69 mL/min/{1.73_m2} Normal >60 [facility] Comment on above: Result Comment: Non- GFR Calc Performed By: #### L 100.0100, L500.2500 ####[facility] [address] [place], [address] Glucose [Mass/Vol] 104 mg/dL Normal 74-106 [facility] Comment on above: Result Comment: Fast ing Glucose result from 100 to 125 mg/dLsuggests IMPAIRED HOMEOSTASIS per A.D.A. criteria. Performed By: #### L 100.0100, L500.2500 ####[facility] [address] [place], [address] Potassium [Moles/Vol] 4.0 mmol/L Normal 3.5-5.1 [facility] Comment on above: Performed By: #### L 100.0100, L500.2500 ####[facility] [address] [place], [address] Sodium [Moles/Vol] 134 mmol/L Low 136-145 [facility] Comment on above: Performed By: #### L 100.0100, L500.2500 ####[facility] [address] [place], [address] Urea nitrogen [Mass/Vol] 17 mg/dL Normal 7-18 [facility] Comment on above: Performed By: #### L 100.0100, L500.2500 ####[facility] [address] [place], [address] CBC W/Diff, Automatedon 09-3 0-4 Absolute Lymph 1.45 X10 3/uL Normal 0.83-4.51 [facility] Comment on above: Performed By: #### L 100.0100, L500.2500 ####[facility] [address] [place], [address] Absolute Neut 5.7 X10 3/uL Normal 2.0-7.7 [facility] Comment on above: Performed By: #### L 100.0100, L500.2500 ####[facility] [address] [place], [address] Basophils/100 WBC (Bld) 0.1 % Normal 0-1 [facility] Comment on above: Performed By: #### L 100.0100, L500.2500 ####[facility] [address] [place], [address] Eosinophils/100 WBC (Bld) 1.3 % Normal 0-5 [facility] Comment on above: Performed By: #### L 100.0100, L500.2500 ####[facility] [address] [place], [address] Erythrocyte distribution width (RBC) [Ratio] 14.0 % Normal 11.6-14.6 [facility] Comment on above: Performed By: #### L 100.0100, L500.2500 ####[facility] [address] [place], [address] Hematocrit (Bld) [Volume fraction] 28.7 % Low 40-54 [facility] Comment on above: Performed By: #### L 100.0100, L500.2500 ####[facility] [address] [place], [address] Hemoglobin (Bld) [Mass/Vol] 9.1 g/dL Low 13.0-16.5 [facility] Comment on above: Performed By: #### L 100.0100, L500.2500 ####[facility] [address] [place], [address] IG% 0.600 Normal 0.0-0.9 [facility] Comment on above: Result Comment: IG% - Immature Granulocytes (promyelocytes, myelocytes andmetamyelocytes) > 1% indicates that a LEFT SHIFT is Present. Performed By: #### L 100.0100, L500.2500 ####[facility] [address] [place], [address] Lymphocytes/100 WBC (Bld) 17.6 % Low 19-41 [facility] Comment on above: Performed By: #### L 100.0100, L500.2500 ####[facility] [address] [place], [address] MCH (RBC) [Entitic mass] 26.0 pg Low 27.0-32.0 [facility] Comment on above: Performed By: #### L 100.0100, L500.2500 ####[facility] [address] [place], [address] MCHC (RBC) [Mass/Vol] 31.7 g/dL Low 32-36 [facility] Comment on above: Performed By: #### L 100.0100, L500.2500 ####[facility] [address] [place], [address] MCV (RBC) [Entitic vol] 82.0 fL Normal 80-94 [facility] Comment on above: Performed By: #### L 100.0100, L500.2500 ####[facility] [address] [place], [address] Monocytes/100 WBC (Bld) 11.8 % High 0-10 [facility] Comment on above: Performed By: #### L 100.0100, L500.2500 ####[facility] [address] [place], [address] Neutrophils/100 WBC (Bld) 68.6 % Normal 47-70 [facility] Comment on above: Performed By: #### L 100.0100, L500.2500 ####[facility] [address] [place], [address] Nucleated RBC (Bld) [#/Vol] 0 10*3/uL Normal 0-5 [facility] Comment on above: Performed By: #### L 100.0100, L500.2500 ####[facility] [address] [place], [address] Platelet mean volume (Bld) [Entitic vol] 9.7 fL Normal 6.2-12.0 [facility] Comment on above: Performed By: #### L 100.0100, L500.2500 ####[facility] [address] [place], [address] Platelets (Bld) [#/Vol] 360 10*3/uL Normal 150-450 [facility] Comment on above: Performed By: #### L 100.0100, L500.2500 ####[facility] [address] [place], [address] RBC (Bld) [#/Vol] 3.50 10*6/uL Low 4.6-6.2 [facility] Comment on above: Performed By: #### L 100.0100, L500.2500 ####[facility] [address] [place], [address] RDW SD 41.8 fl Normal 35.1-43.9 [facility] Comment on above: Performed By: #### L 100.0100, L500.2500 ####[facility] [address] [place], [address] WBC (Bld) [#/Vol] 8.2 10*3/uL Normal 4.4-11.0 [facility] Comment on above: Performed By: #### L 100.0100, L500.2500 ####[facility] [address] [place], [address] Basic Metabolic Profile (BMP )on 04-29-2024 BUN/CRE 13.0 RATIO Normal 10-20 [facility] Comment on above: Performed By: #### L 100.0100, L500.2500 ####[facility] [address] [place], [address] CA,Total 9.1 mg/dL Normal 8.5-10.1 [facility] Comment on above: Performed By: #### L 100.0100, L500.2500 ####[facility] [address] [place], [address] Chloride [Moles/Vol] 101 mmol/L Normal 98-107 [facility] Comment on above: Performed By: #### L 100.0100, L500.2500 ####[facility] [address] [place], [address] CO2 [Moles/Vol] 26.0 mmol/L Normal 21.0-32.0 [facility] Comment on above: Performed By: #### L 100.0100, L500.2500 ####[facility] [address] [place], [address] Creatinine [Mass/Vol] 1.08 mg/dL Normal 0.70-1.30 [facility] Comment on above: Result Comment: The validity of the calculated GFR GFRAA in patients over70 years has not been determined. Clinical correlation isessential. Performed By: #### L 100.0100, L500.2500 ####[facility] [address] [place], [address] ECRCL 51.00 ml/min Normal [facility] Comment on above: Performed By: #### L 100.0100, L500.2500 ####[facility] [address] [place], [address] EST GFR - AA 85 mL/min Normal >60 [facility] Comment on above: Result Comment: Afri can [place] GFR Calc Performed By: #### L 100.0100, L500.2500 ####[facility] [address] [place], [address] GAP 6 Normal 5-15 [facility] Comment on above: Performed By: #### L 100.0100, L500.2500 ####[facility] [address] [place], [address] GFR/1.73 sq M.predicted among non-blacks MDRD (S/P/Bld) [Vol rate/Area] 70 mL/min/{1.73_m2} Normal >60 [facility] Comment on above: Result Comment: Non- GFR Calc Performed By: #### L 100.0100, L500.2500 ####[facility] [address] [place], [address] Glucose [Mass/Vol] 109 mg/dL High 74-106 [facility] Comment on above: Result Comment: Fast ing Glucose result from 100 to 125 mg/dLsuggests IMPAIRED HOMEOSTASIS per A.D.A. criteria. Performed By: #### L 100.0100, L500.2500 ####[facility] [address] [place], [address] Potassium [Moles/Vol] 4.1 mmol/L Normal 3.5-5.1 [facility] Comment on above: Performed By: #### L 100.0100, L500.2500 ####[facility] [address] [place], [address] Sodium [Moles/Vol] 133 mmol/L Low 136-145 [facility] Comment on above: Performed By: #### L 100.0100, L500.2500 ####[facility] [address] [place], [address] Urea nitrogen [Mass/Vol] 14 mg/dL Normal 7-18 [facility] Comment on above: Performed By: #### L 100.0100, L500.2500 ####[facility] [address] [place], [address] CBC W/Diff, Automatedon 04-02 Absolute Lymph 1.60 X10 3/uL Normal 0.83-4.51 [facility] Comment on above: Performed By: #### L 100.0100, L500.2500 ####[facility] [address] [place], [address] Absolute Neut 6.7 X10 3/uL Normal 2.0-7.7 [facility] Comment on above: Performed By: #### L 100.0100, L500.2500 ####[facility] [address] [place], [address] Basophils/100 WBC (Bld) 0.1 % Normal 0-1 [facility] Comment on above: Performed By: #### L 100.0100, L500.2500 ####[facility] [address] [place], [address] Eosinophils/100 WBC (Bld) 0.3 % Normal 0-5 [facility] Comment on above: Performed By: #### L 100.0100, L500.2500 ####[facility] [address] [place], [address] Erythrocyte distribution width (RBC) [Ratio] 14.0 % Normal 11.6-14.6 [facility] Comment on above: Performed By: #### L 100.0100, L500.2500 ####[facility] [address] [place], [address] Hematocrit (Bld) [Volume fraction] 27.6 % Low 40-54 [facility] Comment on above: Performed By: #### L 100.0100, L500.2500 ####[facility] [address] [place], [address] Hemoglobin (Bld) [Mass/Vol] 8.6 g/dL Low 13.0-16.5 [facility] Comment on above: Performed By: #### L 100.0100, L500.2500 ####[facility] [address] [place], [address] IG% 0.500 Normal 0.0-0.9 [facility] Comment on above: Result Comment: IG% - Immature Granulocytes (promyelocytes, myelocytes andmetamyelocytes) > 1% indicates that a LEFT SHIFT is Present. Performed By: #### L 100.0100, L500.2500 ####[facility] [address] [place], [address] Lymphocytes/100 WBC (Bld) 17.1 % Low 19-41 [facility] Comment on above: Performed By: #### L 100.0100, L500.2500 ####[facility] [address] [place], [address] MCH (RBC) [Entitic mass] 26.2 pg Low 27.0-32.0 [facility] Comment on above: Performed By: #### L 100.0100, L500.2500 ####[facility] [address] [place], [address] MCHC (RBC) [Mass/Vol] 31.2 g/dL Low 32-36 [facility] Comment on above: Performed By: #### L 100.0100, L500.2500 ####[facility] [address] [place], [address] MCV (RBC) [Entitic vol] 84.1 fL Normal 80-94 [facility] Comment on above: Performed By: #### L 100.0100, L500.2500 ####[facility] [address] [place], [address] Monocytes/100 WBC (Bld) 10.0 % Normal 0-10 [facility] Comment on above: Performed By: #### L 100.0100, L500.2500 ####[facility] [address] [place], [address] Neutrophils/100 WBC (Bld) 72.0 % High 47-70 [facility] Comment on above: Performed By: #### L 100.0100, L500.2500 ####[facility] [address] [place], [address] Nucleated RBC (Bld) [#/Vol] 0 10*3/uL Normal 0-5 [facility] Comment on above: Performed By: #### L 100.0100, L500.2500 ####[facility] [address] [place], [address] Platelet mean volume (Bld) [Entitic vol] 9.8 fL Normal 6.2-12.0 [facility] Comment on above: Performed By: #### L 100.0100, L500.2500 ####[facility] [address] [place], [address] Platelets (Bld) [#/Vol] 345 10*3/uL Normal 150-450 [facility] Comment on above: Performed By: #### L 100.0100, L500.2500 ####[facility] [address] [place], [address] RBC (Bld) [#/Vol] 3.28 10*6/uL Low 4.6-6.2 [facility] Comment on above: Performed By: #### L 100.0100, L500.2500 ####[facility] [address] [place], [address] RDW SD 42.7 fl Normal 35.1-43.9 [facility] Comment on above: Performed By: #### L 100.0100, L500.2500 ####[facility] [address] [place], [address] WBC (Bld) [#/Vol] 9.4 10*3/uL Normal 4.4-11.0 [facility] Comment on above: Performed By: #### L 100.0100, L500.2500 ####[facility] [address] [place], [address] Basic Metabolic Profile (BMP )on 04-28-2024 BUN/CRE 13.7 RATIO Normal 10-20 [facility] Comment on above: Performed By: #### L 100.0500, L500.2500 ####[facility] [address] [place], [address] CA,Total 8.2 mg/dL Low 8.5-10.1 [facility] Comment on above: Performed By: #### L 100.0500, L500.2500 ####[facility] [address] [place], [address] Chloride [Moles/Vol] 101 mmol/L Normal 98-107 [facility] Comment on above: Performed By: #### L 100.0500, L500.2500 ####[facility] [address] [place], [address] CO2 [Moles/Vol] 26.0 mmol/L Normal 21.0-32.0 [facility] Comment on above: Performed By: #### L 100.0500, L500.2500 ####[facility] [address] [place], [address] Creatinine [Mass/Vol] 1.31 mg/dL High 0.70-1.30 [facility] Comment on above: Result Comment: The validity of the calculated GFR GFRAA in patients over70 years has not been determined. Clinical correlation isessential. Performed By: #### L 100.0500, L500.2500 ####[facility] [address] [place], [address] ECRCL 42.05 ml/min Normal [facility] Comment on above: Performed By: #### L 100.0500, L500.2500 ####[facility] [address], [address] EST GFR - AA 68 mL/min Normal >60 [facility] Comment on above: Result Comment: Afri can [place] GFR Calc Performed By: #### L 100.0500, L500.2500 ####[facility] [address] [place], [address] GAP 4 Low 5-15 [facility] Comment on above: Performed By: #### L 100.0500, L500.2500 ####[facility] [address] [place], [address] GFR/1.73 sq M.predicted among non-blacks MDRD (S/P/Bld) [Vol rate/Area] 56 mL/min/{1.73_m2} Low >60 [facility] Comment on above: Result Comment: Non- GFR Calc Performed By: #### L 100.0500, L500.2500 ####[facility] [address] [place], [address] Glucose [Mass/Vol] 130 mg/dL High 74-106 [facility] Comment on above: Result Comment: Fast ing Glucose result greater than or equal to 126 mg/dLsuggests DIABETES MELLITUS per A.D.A. criteria. Performed By: #### L 100.0500, L500.2500 ####[facility] [address] [place], [address] Potassium [Moles/Vol] 4.4 mmol/L Normal 3.5-5.1 [facility] Comment on above: Performed By: #### L 100.0500, L500.2500 ####[facility] [address] [place], [address] Sodium [Moles/Vol] 131 mmol/L Low 136-145 [facility] Comment on above: Performed By: #### L 100.0500, L500.2500 ####[facility] [address] [place], [address] Urea nitrogen [Mass/Vol] 18 mg/dL Normal 7-18 [facility] Comment on above: Performed By: #### L 100.0500, L500.2500 ####[facility] [address] [place], [address] CBC-Complete Blood Cnt No Di ffon 04-28-2024 Erythrocyte distribution width (RBC) [Ratio] 14.0 % Normal 11.6-14.6 [facility] Comment on above: Performed By: #### L 100.0500, L500.2500 ####[facility] [address] [place], [address] Hematocrit (Bld) [Volume fraction] 26.3 % Low 40-54 [facility] Comment on above: Performed By: #### L 100.0500, L500.2500 ####[facility] [address] [place], [address] Hemoglobin (Bld) [Mass/Vol] 8.1 g/dL Low 13.0-16.5 [facility] Comment on above: Performed By: #### L 100.0500, L500.2500 ####[facility] [address] [place], [address] MCH (RBC) [Entitic mass] 26.1 pg Low 27.0-32.0 [facility] Comment on above: Performed By: #### L 100.0500, L500.2500 ####[facility] [address] [place], [address] MCHC (RBC) [Mass/Vol] 30.8 g/dL Low 32-36 [facility] Comment on above: Performed By: #### L 100.0500, L500.2500 ####[facility] [address] [place], [address] MCV (RBC) [Entitic vol] 84.8 fL Normal 80-94 [facility] Comment on above: Performed By: #### L 100.0500, L500.2500 ####[facility] [address] [place], [address] Platelet mean volume (Bld) [Entitic vol] 10.2 fL Normal 6.2-12.0 [facility] Comment on above: Performed By: #### L 100.0500, L500.2500 ####[facility] [address] [place], [address] Platelets (Bld) [#/Vol] 296 10*3/uL Normal 150-450 [facility] Comment on above: Performed By: #### L 100.0500, L500.2500 ####[facility] [address] [place], [address] RBC (Bld) [#/Vol] 3.10 10*6/uL Low 4.6-6.2 [facility] Comment on above: Performed By: #### L 100.0500, L500.2500 ####[facility] [address] [place], [address] RDW SD 43.3 fl Normal 35.1-43.9 [facility] Comment on above: Performed By: #### L 100.0500, L500.2500 ####[facility] [address] [place], [address] WBC (Bld) [#/Vol] 9.1 10*3/uL Normal 4.4-11.0 [facility] Comment on above: Performed By: #### L 100.0500, L500.2500 ####[facility] [address] [place], [address] Bedside Glucoseon 04-27-2024 FINGERSTICK GLU 113 mg/dL High 74-106 [facility] Comment on above: Result Comment: STELLA FLORES OF PATIENT CARE PER NURSING PROTOCOL Performed By: #### L 501.080 ####[facility] [address] [place], [address] CBC-Complete Blood Cnt No Marah riveraon 04-27-2024 Erythrocyte distribution width (RBC) [Ratio] 13.7 % Normal 11.6-14.6 [facility] Comment on above: Performed By: #### L 100.0500 ####[facility] [address] [place], [address] Hematocrit (Bld) [Volume fraction] 30.5 % Low 40-54 [facility] Comment on above: Performed By: #### L 100.0500 ####[facility] [address] [place], [address] Hemoglobin (Bld) [Mass/Vol] 9.4 g/dL Low 13.0-16.5 [facility] Comment on above: Performed By: #### L 100.0500 ####[facility] [address] [place], [address] MCH (RBC) [Entitic mass] 26.0 pg Low 27.0-32.0 [facility] Comment on above: Performed By: #### L 100.0500 ####[facility] [address] [place], [address] MCHC (RBC) [Mass/Vol] 30.8 g/dL Low 32-36 [facility] Comment on above: Performed By: #### L 100.0500 ####[facility] [address] [place], [address] MCV (RBC) [Entitic vol] 84.3 fL Normal 80-94 [facility] Comment on above: Performed By: #### L 100.0500 ####[facility] [address] [place], [address] Platelet mean volume (Bld) [Entitic vol] 9.7 fL Normal 6.2-12.0 [facility] Comment on above: Performed By: #### L 100.0500 ####[facility] [address] [place], [address] Platelets (Bld) [#/Vol] 346 10*3/uL Normal 150-450 [facility] Comment on above: Performed By: #### L 100.0500 ####[facility] [address] [place], [address] RBC (Bld) [#/Vol] 3.62 10*6/uL Low 4.6-6.2 [facility] Comment on above: Performed By: #### L 100.0500 ####[facility] [address] [place], [address] RDW SD 42.4 fl Normal 35.1-43.9 [facility] Comment on above: Performed By: #### L 100.0500 ####[facility] [address] [place], [address] WBC (Bld) [#/Vol] 7.1 10*3/uL Normal 4.4-11.0 [facility] Comment on above: Performed By: #### L 100.0500 ####[facility] [address] [place], [address] MLH-1 (add)on 04-27-2024 MLH-1 (add) Normal [facility] Comment on above: Performed By: #### P MLH1. ####[facility] [address] [place], [address] MR/POSTOP.ANEon 04-27-2024 MR/POSTOP.ANE Normal [facility] MR/GZIWREPS4on 04-27-2024 MR/POSTOPAN2 Normal [facility] Magnesiumon 04-27-2024 Magnesium [Mass/Vol] 1.9 mg/dL Normal 1.6-2.6 [facility] Comment on above: Performed By: #### L 501.5200 ####[facility] [address] [place], [address] Operative Reporton Operative Report Normal [facility] Surgery Specimen Level VIon 04-27-2024 Surgery Specimen Level Normal [facility] Comment on above: Performed By: #### P SUVI ####[facility] [address] [place], [address] Cardiology Visit Reporton Cardiology Visit Report Normal [facility] Surgery Visit Reporton 04-20 Surgery Visit Report Normal [facility] CBC W/Diff, Automatedon 04-01 Absolute Lymph 1.42 X10 3/uL Normal 0.83-4.51 [facility] Comment on above: Performed By: #### L 100.0100 ####[facility] [address] [place], [address] Absolute Neut 3.1 X10 3/uL Normal 2.0-7.7 [facility] Comment on above: Performed By: #### L 100.0100 ####[facility] [address] [place], [address] Basophils/100 WBC (Bld) 0.5 % Normal 0-1 [facility] Comment on above: Performed By: #### L 100.0100 ####[facility] [address] [place], [address] Eosinophils/100 WBC (Bld) 5.9 % High 0-5 [facility] Comment on above: Performed By: #### L 100.0100 ####[facility] [address] [place], [address] Erythrocyte distribution width (RBC) [Ratio] 13.4 % Normal 11.6-14.6 [facility] Comment on above: Performed By: #### L 100.0100 ####[facility] [address] [place], [address] Hematocrit (Bld) [Volume fraction] 30.5 % Low 40-54 [facility] Comment on above: Performed By: #### L 100.0100 ####[facility] [address] [place], [address] Hemoglobin (Bld) [Mass/Vol] 9.3 g/dL Low 13.0-16.5 [facility] Comment on above: Performed By: #### L 100.0100 ####[facility] [address] [place], [address] IG% 0.200 Normal 0.0-0.9 [facility] Comment on above: Result Comment: IG% - Immature Granulocytes (promyelocytes, myelocytes andmetamyelocytes) > 1% indicates that a LEFT SHIFT is Present. Performed By: #### L 100.0100 ####[facility] [address] [place], [address] Lymphocytes/100 WBC (Bld) 25.6 % Normal 19-41 [facility] Comment on above: Performed By: #### L 100.0100 ####[facility] [address] [place], [address] MCH (RBC) [Entitic mass] 26.2 pg Low 27.0-32.0 [facility] Comment on above: Performed By: #### L 100.0100 ####[facility] [address] [place], [address] MCHC (RBC) [Mass/Vol] 30.5 g/dL Low 32-36 [facility] Comment on above: Performed By: #### L 100.0100 ####[facility] [address] [place], [address] MCV (RBC) [Entitic vol] 85.9 fL Normal 80-94 [facility] Comment on above: Performed By: #### L 100.0100 ####[facility] [address] [place], [address] Monocytes/100 WBC (Bld) 12.1 % High 0-10 [facility] Comment on above: Performed By: #### L 100.0100 ####[facility] [address] [place], [address] Neutrophils/100 WBC (Bld) 55.7 % Normal 47-70 [facility] Comment on above: Performed By: #### L 100.0100 ####[facility] [address] [place], [address] Nucleated RBC (Bld) [#/Vol] 0 10*3/uL Normal 0-5 [facility] Comment on above: Performed By: #### L 100.0100 ####[facility] [address] [place], [address] Platelet mean volume (Bld) [Entitic vol] 9.3 fL Normal 6.2-12.0 [facility] Comment on above: Performed By: #### L 100.0100 ####[facility] [address] [place], [address] Platelets (Bld) [#/Vol] 303 10*3/uL Normal 150-450 [facility] Comment on above: Performed By: #### L 100.0100 ####[facility] [address] [place], [address] RBC (Bld) [#/Vol] 3.55 10*6/uL Low 4.6-6.2 [facility] Comment on above: Performed By: #### L 100.0100 ####[facility] [address] [place], [address] RDW SD 42.2 fl Normal 35.1-43.9 [facility] Comment on above: Performed By: #### L 100.0100 ####[facility] [address] [place], [address] WBC (Bld) [#/Vol] 5.6 10*3/uL Normal 4.4-11.0 [facility] Comment on above: Performed By: #### L 100.0100 ####[facility] [address] [place], [address] Basic Metabolic Profile (BMP )on 04-14-2024 BUN/CRE 13.0 RATIO Normal 10-20 [facility] Comment on above: Performed By: #### L 100.0100, L500.2500 ####[facility] [address] [place], [address] CA,Total 8.1 mg/dL Low 8.5-10.1 [facility] Comment on above: Performed By: #### L 100.0100, L500.2500 ####[facility] [address] [place], [address] Chloride [Moles/Vol] 108 mmol/L High 98-107 [facility] Comment on above: Performed By: #### L 100.0100, L500.2500 ####[facility] [address] [place], [address] CO2 [Moles/Vol] 23.0 mmol/L Normal 21.0-32.0 [facility] Comment on above: Performed By: #### L 100.0100, L500.2500 ####[facility] [address] [place], [address] Creatinine [Mass/Vol] 1.23 mg/dL Normal 0.70-1.30 [facility] Comment on above: Result Comment: The validity of the calculated GFR GFRAA in patients over70 years has not been determined. Clinical correlation isessential. Performed By: #### L 100.0100, L500.2500 ####[facility] [address] [place], [address] ECRCL 44.78 ml/min Normal [facility] Comment on above: Performed By: #### L 100.0100, L500.2500 ####[facility] [address] [place], [address] EST GFR - AA 73 mL/min Normal >60 [facility] Comment on above: Result Comment: Afri can [place] GFR Calc Performed By: #### L 100.0100, L500.2500 ####[facility] [address] [place], [address] GAP 7 Normal 5-15 [facility] Comment on above: Performed By: #### L 100.0100, L500.2500 ####[facility] [address] [place], [address] GFR/1.73 sq M.predicted among non-blacks MDRD (S/P/Bld) [Vol rate/Area] 60 mL/min/{1.73_m2} Normal >60 [facility] Comment on above: Result Comment: Non- GFR Calc Performed By: #### L 100.0100, L500.2500 ####[facility] [address] [place], [address] Glucose [Mass/Vol] 105 mg/dL Normal 74-106 [facility] Comment on above: Result Comment: Fast ing Glucose result from 100 to 125 mg/dLsuggests IMPAIRED HOMEOSTASIS per A.D.A. criteria. Performed By: #### L 100.0100, L500.2500 ####[facility] [address] [place], [address] Potassium [Moles/Vol] 3.4 mmol/L Low 3.5-5.1 [facility] Comment on above: Performed By: #### L 100.0100, L500.2500 ####[facility] [address] [place], [address] Sodium [Moles/Vol] 138 mmol/L Normal 136-145 [facility] Comment on above: Performed By: #### L 100.0100, L500.2500 ####[facility] [address] [place], [address] Urea nitrogen [Mass/Vol] 16 mg/dL Normal 7-18 [facility] Comment on above: Performed By: #### L 100.0100, L500.2500 ####[facility] [address] [place], [address] CBC W/Diff, Automatedon 04-01 Absolute Lymph 1.52 X10 3/uL Normal 0.83-4.51 [facility] Comment on above: Performed By: #### L 100.0100, L500.2500 ####[facility] [address] [place], [address] Absolute Neut 4.8 X10 3/uL Normal 2.0-7.7 [facility] Comment on above: Performed By: #### L 100.0100, L500.2500 ####[facility] [address] [place], [address] Basophils/100 WBC (Bld) 0.1 % Normal 0-1 [facility] Comment on above: Performed By: #### L 100.0100, L500.2500 ####[facility] [address] [place], [address] Eosinophils/100 WBC (Bld) 3.4 % Normal 0-5 [facility] Comment on above: Performed By: #### L 100.0100, L500.2500 ####[facility] [address] [place], [address] Erythrocyte distribution width (RBC) [Ratio] 13.4 % Normal 11.6-14.6 [facility] Comment on above: Performed By: #### L 100.0100, L500.2500 ####[facility] [address] [place], [address] Hematocrit (Bld) [Volume fraction] 30.9 % Low 40-54 [facility] Comment on above: Performed By: #### L 100.0100, L500.2500 ####[facility] [address] [place], [address] Hemoglobin (Bld) [Mass/Vol] 9.5 g/dL Low 13.0-16.5 [facility] Comment on above: Performed By: #### L 100.0100, L500.2500 ####[facility] [address] [place], [address] IG% 0.300 Normal 0.0-0.9 [facility] Comment on above: Result Comment: IG% - Immature Granulocytes (promyelocytes, myelocytes andmetamyelocytes) > 1% indicates that a LEFT SHIFT is Present. Performed By: #### L 100.0100, L500.2500 ####[facility] [address] [place], [address] Lymphocytes/100 WBC (Bld) 20.1 % Normal 19-41 [facility] Comment on above: Performed By: #### L 100.0100, L500.2500 ####[facility] [address] [place], [address] MCH (RBC) [Entitic mass] 26.2 pg Low 27.0-32.0 [facility] Comment on above: Performed By: #### L 100.0100, L500.2500 ####[facility] [address] [place], [address] MCHC (RBC) [Mass/Vol] 30.7 g/dL Low 32-36 [facility] Comment on above: Performed By: #### L 100.0100, L500.2500 ####[facility] [address] [place], [address] MCV (RBC) [Entitic vol] 85.4 fL Normal 80-94 [facility] Comment on above: Performed By: #### L 100.0100, L500.2500 ####[facility] [address] [place], [address] Monocytes/100 WBC (Bld) 12.2 % High 0-10 [facility] Comment on above: Performed By: #### L 100.0100, L500.2500 ####[facility] [address] [place], [address] Neutrophils/100 WBC (Bld) 63.9 % Normal 47-70 [facility] Comment on above: Performed By: #### L 100.0100, L500.2500 ####[facility] [address] [place], [address] Nucleated RBC (Bld) [#/Vol] 0 10*3/uL Normal 0-5 [facility] Comment on above: Performed By: #### L 100.0100, L500.2500 ####[facility] [address] [place], [address] Platelet mean volume (Bld) [Entitic vol] 9.4 fL Normal 6.2-12.0 [facility] Comment on above: Performed By: #### L 100.0100, L500.2500 ####[facility] [address] [place], [address] Platelets (Bld) [#/Vol] 321 10*3/uL Normal 150-450 [facility] Comment on above: Performed By: #### L 100.0100, L500.2500 ####[facility] [address] [place], [address] RBC (Bld) [#/Vol] 3.62 10*6/uL Low 4.6-6.2 [facility] Comment on above: Performed By: #### L 100.0100, L500.2500 ####[facility] [address] [place], [address] RDW SD 42.0 fl Normal 35.1-43.9 [facility] Comment on above: Performed By: #### L 100.0100, L500.2500 ####[facility] [address] [place], [address] WBC (Bld) [#/Vol] 7.6 10*3/uL Normal 4.4-11.0 [facility] Comment on above: Performed By: #### L 100.0100, L500.2500 ####[facility] [address] [place], [address] MR/PN.GIon 04-14-2024 MR/PN.GI Normal [facility] Basic Metabolic Profile (BMP )on 04-13-2024 BUN/CRE 12.6 RATIO Normal 10-20 [facility] Comment on above: Performed By: #### L 100.0100, L500.2500 ####[facility] [address] [place], [address] CA,Total 8.9 mg/dL Normal 8.5-10.1 [facility] Comment on above: Performed By: #### L 100.0100, L500.2500 ####[facility] [address] [place], [address] Chloride [Moles/Vol] 106 mmol/L Normal 98-107 [facility] Comment on above: Performed By: #### L 100.0100, L500.2500 ####[facility] [address] [place], [address] CO2 [Moles/Vol] 24.0 mmol/L Normal 21.0-32.0 [facility] Comment on above: Performed By: #### L 100.0100, L500.2500 ####[facility] [address] [place], [address] Creatinine [Mass/Vol] 1.19 mg/dL Normal 0.70-1.30 [facility] Comment on above: Result Comment: The validity of the calculated GFR GFRAA in patients over70 years has not been determined. Clinical correlation isessential. Performed By: #### L 100.0100, L500.2500 ####[facility] [address] [place], [address] ECRCL 46.29 ml/min Normal [facility] Comment on above: Performed By: #### L 100.0100, L500.2500 ####[facility] [address] [place], [address] EST GFR - AA 76 mL/min Normal >60 [facility] Comment on above: Result Comment: Afri can [place] GFR Calc Performed By: #### L 100.0100, L500.2500 ####[facility] [address] [place], [address] GAP 8 Normal 5-15 [facility] Comment on above: Performed By: #### L 100.0100, L500.2500 ####[facility] [address] [place], [address] GFR/1.73 sq M.predicted among non-blacks MDRD (S/P/Bld) [Vol rate/Area] 63 mL/min/{1.73_m2} Normal >60 [facility] Comment on above: Result Comment: Non- GFR Calc Performed By: #### L 100.0100, L500.2500 ####[facility] [address] [place], [address] Glucose [Mass/Vol] 99 mg/dL Normal 74-106 [facility] Comment on above: Performed By: #### L 100.0100, L500.2500 ####[facility] [address] [place], [address] Potassium [Moles/Vol] 3.6 mmol/L Normal 3.5-5.1 [facility] Comment on above: Performed By: #### L 100.0100, L500.2500 ####[facility] [address] [place], [address] Sodium [Moles/Vol] 138 mmol/L Normal 136-145 [facility] Comment on above: Performed By: #### L 100.0100, L500.2500 ####[facility] [address] [place], [address] Urea nitrogen [Mass/Vol] 15 mg/dL Normal 7-18 [facility] Comment on above: Performed By: #### L 100.0100, L500.2500 ####[facility] [address] [place], [address] CBC W/Diff, Automatedon 04-01-2023 Absolute Lymph 1.30 X10 3/uL Normal 0.83-4.51 [facility] Comment on above: Performed By: #### L 100.0100, L500.2500 ####[facility] [address] [place], [address] Absolute Neut 3.5 X10 3/uL Normal 2.0-7.7 [facility] Comment on above: Performed By: #### L 100.0100, L500.2500 ####[facility] [address] [place], [address] Basophils/100 WBC (Bld) 0.2 % Normal 0-1 [facility] Comment on above: Performed By: #### L 100.0100, L500.2500 ####[facility] [address] [place], [address] Eosinophils/100 WBC (Bld) 2.8 % Normal 0-5 [facility] Comment on above: Performed By: #### L 100.0100, L500.2500 ####[facility] [address] [place], [address] Erythrocyte distribution width (RBC) [Ratio] 13.4 % Normal 11.6-14.6 [facility] Comment on above: Performed By: #### L 100.0100, L500.2500 ####[facility] [address] [place], [address] Hematocrit (Bld) [Volume fraction] 34.1 % Low 40-54 [facility] Comment on above: Performed By: #### L 100.0100, L500.2500 ####[facility] [address] [place], [address] Hemoglobin (Bld) [Mass/Vol] 10.8 g/dL Low 13.0-16.5 [facility] Comment on above: Performed By: #### L 100.0100, L500.2500 ####[facility] [address] [place], [address] IG% 0.300 Normal 0.0-0.9 [facility] Comment on above: Result Comment: IG% - Immature Granulocytes (promyelocytes, myelocytes andmetamyelocytes) > 1% indicates that a LEFT SHIFT is Present. Performed By: #### L 100.0100, L500.2500 ####[facility] [address] [place], [address] Lymphocytes/100 WBC (Bld) 22.6 % Normal 19-41 [facility] Comment on above: Performed By: #### L 100.0100, L500.2500 ####[facility] [address] [place], [address] MCH (RBC) [Entitic mass] 26.7 pg Low 27.0-32.0 [facility] Comment on above: Performed By: #### L 100.0100, L500.2500 ####[facility] [address] [place], [address] MCHC (RBC) [Mass/Vol] 31.7 g/dL Low 32-36 [facility] Comment on above: Performed By: #### L 100.0100, L500.2500 ####[facility] [address] [place], [address] MCV (RBC) [Entitic vol] 84.4 fL Normal 80-94 [facility] Comment on above: Performed By: #### L 100.0100, L500.2500 ####[facility] [address] [place], [address] Monocytes/100 WBC (Bld) 12.5 % High 0-10 [facility] Comment on above: Performed By: #### L 100.0100, L500.2500 ####[facility] [address] [place], [address] Neutrophils/100 WBC (Bld) 61.6 % Normal 47-70 [facility] Comment on above: Performed By: #### L 100.0100, L500.2500 ####[facility] [address] [place], [address] Nucleated RBC (Bld) [#/Vol] 0 10*3/uL Normal 0-5 [facility] Comment on above: Performed By: #### L 100.0100, L500.2500 ####[facility] [address] [place], [address] Platelet mean volume (Bld) [Entitic vol] 9.4 fL Normal 6.2-12.0 [facility] Comment on above: Performed By: #### L 100.0100, L500.2500 ####[facility] [address] [place], [address] Platelets (Bld) [#/Vol] 343 10*3/uL Normal 150-450 [facility] Comment on above: Performed By: #### L 100.0100, L500.2500 ####[facility] [address] [place], [address] RBC (Bld) [#/Vol] 4.04 10*6/uL Low 4.6-6.2 [facility] Comment on above: Performed By: #### L 100.0100, L500.2500 ####[facility] [address] [place], [address] RDW SD 41.8 fl Normal 35.1-43.9 [facility] Comment on above: Performed By: #### L 100.0100, L500.2500 ####[facility] [address] [place], [address] WBC (Bld) [#/Vol] 5.8 10*3/uL Normal 4.4-11.0 [facility] Comment on above: Performed By: #### L 100.0100, L500.2500 ####[facility] [address] [place], [address] Carcinoembryonic Antigenon 0 04-13-2024 CEA 2.7 ng/mL Normal 0.0-4.7 [facility] Comment on above: Result Comment: Nons mokers <3.9 Smokers <5.6[employer] Electrochemiluminescence Immunoassay(ECLIA)Values obtained with different assay methods or kitscannot be used interchangeably. Results cannot beinterpreted as absolute evidence of the presence orabsence of malignant disease.Performed at: [address] [id number] Director: Jian Paredes PhD, Phone: [phone] Performed By: #### L 9569.1076 ####[facility] [address] [place], [address] Colonoscopy Reporton 024 Colonoscopy Report Normal [facility] HER-2-DIONNA (initial)on 2023 HER-2-DIONNA (initial) Normal [facility] Comment on above: Performed By: #### P HER2 ####[facility] [address] [place], [address] MR/POSTOP.ANEon 04-13-2024 MR/POSTOP.ANE Normal [facility] MR/QVOFUYKV4sf 04-13-2024 MR/POSTOPAN2 Normal [facility] Partial Thromboplast Timeon 04-13-2024 aPTT Coag (Bld) [Time] 29.4 s Normal 24.1-36.2 [facility] Comment on above: Performed By: #### L 300.3900, L300.4310 ####[facility] [address] [place], [address] Prothrombin Time w/INRon INR Coag (PPP) [Relative time] 1.1 {INR} Normal [facility] Comment on above: Performed By: #### L 300.3900, L300.4310 ####[facility] [address] [place], [address] PT Coag (PPP) [Time] 14.6 s Normal 11.7-14.9 [facility] Comment on above: Performed By: #### L 300.3900, L300.4310 ####[facility] [address] [place], [address] Special Stain Group Ion 04-01 Special Stain Group I Normal [facility] Comment on above: Performed By: #### P SSI ####[facility] [address] [place], [address] CBC W/Diff, Automatedon 04-01 Absolute Lymph 1.44 X10 3/uL Normal 0.83-4.51 [facility] Comment on above: Performed By: #### L 501.2300, L100.0100, L500.4050, L501.9520, L501.5200 ####[facility] [address] [place], [address] Absolute Neut 3.5 X10 3/uL Normal 2.0-7.7 [facility] Comment on above: Performed By: #### L 501.2300, L100.0100, L500.4050, L501.9520, L501.5200 ####[facility] [address] [place], [address] Basophils/100 WBC (Bld) 0.4 % Normal 0-1 [facility] Comment on above: Performed By: #### L 501.2300, L100.0100, L500.4050, L501.9520, L501.5200 ####[facility] [address] [place], [address] Eosinophils/100 WBC (Bld) 1.8 % Normal 0-5 [facility] Comment on above: Performed By: #### L 501.2300, L100.0100, L500.4050, L501.9520, L501.5200 ####[facility] [address] [place], [address] Erythrocyte distribution width (RBC) [Ratio] 13.3 % Normal 11.6-14.6 [facility] Comment on above: Performed By: #### L 501.2300, L100.0100, L500.4050, L501.9520, L501.5200 ####[facility] [address] [place], [address] Hematocrit (Bld) [Volume fraction] 32.7 % Low 40-54 [facility] Comment on above: Performed By: #### L 501.2300, L100.0100, L500.4050, L501.9520, L501.5200 ####[facility] [address] [place], [address] Hemoglobin (Bld) [Mass/Vol] 10.5 g/dL Low 13.0-16.5 [facility] Comment on above: Performed By: #### L 501.2300, L100.0100, L500.4050, L501.9520, L501.5200 ####[facility] [address] [place], [address] IG% 0.500 Normal 0.0-0.9 [facility] Comment on above: Result Comment: IG% - Immature Granulocytes (promyelocytes, myelocytes andmetamyelocytes) > 1% indicates that a LEFT SHIFT is Present. Performed By: #### L 501.2300, L100.0100, L500.4050, L501.9520, L501.5200 ####[facility] [address] [place], [address] Lymphocytes/100 WBC (Bld) 25.3 % Normal 19-41 [facility] Comment on above: Performed By: #### L 501.2300, L100.0100, L500.4050, L501.9520, L501.5200 ####[facility] [address] [place], [address] MCH (RBC) [Entitic mass] 27.5 pg Normal 27.0-32.0 [facility] Comment on above: Performed By: #### L 501.2300, L100.0100, L500.4050, L501.9520, L501.5200 ####[facility] [address] [place], [address] MCHC (RBC) [Mass/Vol] 32.1 g/dL Normal 32-36 [facility] Comment on above: Performed By: #### L 501.2300, L100.0100, L500.4050, L501.9520, L501.5200 ####[facility] [address] [place], [address] MCV (RBC) [Entitic vol] 85.6 fL Normal 80-94 [facility] Comment on above: Performed By: #### L 501.2300, L100.0100, L500.4050, L501.9520, L501.5200 ####[facility] [address] [place], [address] Monocytes/100 WBC (Bld) 10.5 % High 0-10 [facility] Comment on above: Performed By: #### L 501.2300, L100.0100, L500.4050, L501.9520, L501.5200 ####[facility] [address] [place], [address] Neutrophils/100 WBC (Bld) 61.5 % Normal 47-70 [facility] Comment on above: Performed By: #### L 501.2300, L100.0100, L500.4050, L501.9520, L501.5200 ####[facility] [address] [place], [address] Nucleated RBC (Bld) [#/Vol] 0 10*3/uL Normal 0-5 [facility] Comment on above: Performed By: #### L 501.2300, L100.0100, L500.4050, L501.9520, L501.5200 ####[facility] [address] [place], [address] Platelet mean volume (Bld) [Entitic vol] 9.2 fL Normal 6.2-12.0 [facility] Comment on above: Performed By: #### L 501.2300, L100.0100, L500.4050, L501.9520, L501.5200 ####[facility] [address] [place], [address] Platelets (Bld) [#/Vol] 314 10*3/uL Normal 150-450 [facility] Comment on above: Performed By: #### L 501.2300, L100.0100, L500.4050, L501.9520, L501.5200 ####[facility] [address] [place], [address] RBC (Bld) [#/Vol] 3.82 10*6/uL Low 4.6-6.2 [facility] Comment on above: Performed By: #### L 501.2300, L100.0100, L500.4050, L501.9520, L501.5200 ####[facility] [address] [place], [address] RDW SD 41.6 fl Normal 35.1-43.9 [facility] Comment on above: Performed By: #### L 501.2300, L100.0100, L500.4050, L501.9520, L501.5200 ####[facility] [address] [place], [address] WBC (Bld) [#/Vol] 5.7 10*3/uL Normal 4.4-11.0 [facility] Comment on above: Performed By: #### L 501.2300, L100.0100, L500.4050, L501.9520, L501.5200 ####[facility] [address] [place], [address] Comprehensive Metabolic [facility] 04-12-2024 Albumin [Mass/Vol] 3.8 g/dL Normal 3.2-5.0 [facility] Comment on above: Performed By: #### L 501.2300, L100.0100, L500.4050, L501.9520, L501.5200 ####[facility] [address] [place], [address] Albumin/Globulin [Mass ratio] 1.1 {ratio} Normal 0.9-2.4 [facility] Comment on above: Performed By: #### L 501.2300, L100.0100, L500.4050, L501.9520, L501.5200 ####[facility] [address] [place], [address] ALK P 88 U/L Normal 45-117 [facility] Comment on above: Performed By: #### L 501.2300, L100.0100, L500.4050, L501.9520, L501.5200 ####[facility] [address] [place], [address] ALT [Catalytic activity/Vol] 22 U/L Normal 16-61 [facility] Comment on above: Performed By: #### L 501.2300, L100.0100, L500.4050, L501.9520, L501.5200 ####[facility] [address] [place], [address] AST [Catalytic activity/Vol] 20 U/L Normal 15-37 [facility] Comment on above: Performed By: #### L 501.2300, L100.0100, L500.4050, L501.9520, L501.5200 ####[facility] [address] [place], [address] Bilirubin [Mass/Vol] 0.90 mg/dL Normal 0.20-1.00 [facility] Comment on above: Result Comment: For patients on eltrombopag therapy, use of Dimension [place] TBIL is not recommended. Performed By: #### L 501.2300, L100.0100, L500.4050, L501.9520, L501.5200 ####[facility] [address] [place], [address] BUN/CRE 13.7 RATIO Normal 10-20 [facility] Comment on above: Performed By: #### L 501.2300, L100.0100, L500.4050, L501.9520, L501.5200 ####[facility] [address] [place], [address] CA,Total 8.9 mg/dL Normal 8.5-10.1 [facility] Comment on above: Performed By: #### L 501.2300, L100.0100, L500.4050, L501.9520, L501.5200 ####[facility] [address] [place], [address] Chloride [Moles/Vol] 104 mmol/L Normal 98-107 [facility] Comment on above: Performed By: #### L 501.2300, L100.0100, L500.4050, L501.9520, L501.5200 ####[facility] [address] [place], [address] CO2 [Moles/Vol] 29.0 mmol/L Normal 21.0-32.0 [facility] Comment on above: Performed By: #### L 501.2300, L100.0100, L500.4050, L501.9520, L501.5200 ####[facility] [address] [place], [address] Creatinine [Mass/Vol] 1.17 mg/dL Normal 0.70-1.30 [facility] Comment on above: Result Comment: The validity of the calculated GFR GFRAA in patients over70 years has not been determined. Clinical correlation isessential. Performed By: #### L 501.2300, L100.0100, L500.4050, L501.9520, L501.5200 ####[facility] [address] [place], [address] ECRCL 48.72 ml/min Normal [facility] Comment on above: Performed By: #### L 501.2300, L100.0100, L500.4050, L501.9520, L501.5200 ####[facility] [address] [place], [address] EST GFR - AA 77 mL/min Normal >60 [facility] Comment on above: Result Comment: Afri can [place] GFR Calc Performed By: #### L 501.2300, L100.0100, L500.4050, L501.9520, L501.5200 ####[facility] [address] [place], [address] GAP 4 Low 5-15 [facility] Comment on above: Performed By: #### L 501.2300, L100.0100, L500.4050, L501.9520, L501.5200 ####[facility] [address] [place], [address] GFR/1.73 sq M.predicted among non-blacks MDRD (S/P/Bld) [Vol rate/Area] 64 mL/min/{1.73_m2} Normal >60 [facility] Comment on above: Result Comment: Non- GFR Calc Performed By: #### L 501.2300, L100.0100, L500.4050, L501.9520, L501.5200 ####[facility] [address] [place], [address] Globulin (S) [Mass/Vol] 3.5 g/dL Normal 2.2-4.2 [facility] Comment on above: Performed By: #### L 501.2300, L100.0100, L500.4050, L501.9520, L501.5200 ####[facility] [address] [place], [address] Glucose [Mass/Vol] 98 mg/dL Normal 74-106 [facility] Comment on above: Performed By: #### L 501.2300, L100.0100, L500.4050, L501.9520, L501.5200 ####[facility] [address] [place], [address] Potassium [Moles/Vol] 3.5 mmol/L Normal 3.5-5.1 [facility] Comment on above: Performed By: #### L 501.2300, L100.0100, L500.4050, L501.9520, L501.5200 ####[facility] [address] [place], [address] Sodium [Moles/Vol] 137 mmol/L Normal 136-145 [facility] Comment on above: Performed By: #### L 501.2300, L100.0100, L500.4050, L501.9520, L501.5200 ####[facility] [address] [place], [address] T PROT 7.3 g/dL Normal 6.4-8.2 [facility] Comment on above: Performed By: #### L 501.2300, L100.0100, L500.4050, L501.9520, L501.5200 ####[facility] [address] [place], [address] Urea nitrogen [Mass/Vol] 16 mg/dL Normal 7-18 [facility] Comment on above: Performed By: #### L 501.2300, L100.0100, L500.4050, L501.9520, L501.5200 ####[facility] [address] [place], [address] Consultation - Surgicalon Consultation - Surgical Normal [facility] Ferritinon 04-12-2024 Ferritin [Mass/Vol] 17 ng/mL Low 26-388 [facility] Comment on above: Performed By: #### L 503.6072, L503.6550 ####[facility] [address] [place], [address] Iron+Iron Binding Capacityon 04-12-2024 Iron [Mass/Vol] 16 ug/dL Low 65-175 [facility] Comment on above: Performed By: #### L 503.6030, L503.6550 ####[facility] [address] [place], [address] IRON SATURATION 4.1 Low 15.0-55.0 [facility] Comment on above: Performed By: #### L 503.6030, L503.6550 ####[facility] [address] [place], [address] TIBC 387 ug/dL Normal 250-450 [facility] Comment on above: Performed By: #### L 503.6030, L503.6550 ####[facility] [address] [place], [address] MR/CON.PCM.GIon 04-12-2024 MR/CON.PCM.GI Normal [facility] Magnesiumon 04-12-2024 Magnesium [Mass/Vol] 2.1 mg/dL Normal 1.6-2.6 [facility] Comment on above: Performed By: #### L 501.2300, L100.0100, L500.4050, L501.9520, L501.5200 ####[facility] [address] [place], [address] Partial Thromboplast Timeon 04-12-2024 aPTT Coag (Bld) [Time] 27.7 s Normal 24.1-36.2 [facility] Comment on above: Performed By: #### L 300.4310, L300.3900 ####[facility] [address] [place], [address] Phosphoruson 04-12-2024 Phosphate [Mass/Vol] 3.5 mg/dL Normal 2.5-4.9 [facility] Comment on above: Performed By: #### L 501.2300, L100.0100, L500.4050, L501.9520, L501.5200 ####[facility] [address] [place], [address] Prothrombin Time w/INRon INR Coag (PPP) [Relative time] 1.0 {INR} Normal [facility] Comment on above: Performed By: #### L 300.4310, L300.3900 ####[facility] [address] [place], [address] PT Coag (PPP) [Time] 13.1 s Normal 11.7-14.9 [facility] Comment on above: Performed By: #### L 300.4310, L300.3900 ####[facility] [address] [place], [address] Thyroid Stim Hormone (TSH)on 04-12-2024 TSH 3.360 uIU/mL Normal 0.358-3.740 [facility] Comment on above: Performed By: #### L 501.2300, L100.0100, L500.4050, L501.9520, L501.5200 ####[facility] [address] [place], [address] 12 Lead EKGon 04-11-2024 12 Lead EKG Normal [facility] BNP,B-Type NATRIURETIC PEPTI Иван 04-11-2024 Natriuretic peptide B (Bld) [Mass/Vol] 371.0 pg/mL High 0-100 [facility] Comment on above: Performed By: #### L 501.4020, L500.4050, L300.8000, L503.6620, L100.0100 ####[facility] [address] [place], [address] BRCon 04-11-2024 RC Normal [facility] Comment on above: Result Comment: [id number] OP RC TRANSFUSED 04/12/24 [id number] OP RC TRANSFUSED 04/11/24 2311 Performed By: #### B RC ####[facility] [address] [place], [address] Basic Metabolic Profile (BMP )on 04-11-2024 BUN/CRE 13.8 RATIO Normal 10-20 [facility] Comment on above: Order Comment: 'TROP ' Serial specimen #1, #2 or #3: 1 Performed By: #### L 300.3900, L500.2500, L501.4020, L100.0100, L500.3400, L300.4310, BTS, L501.2450 ####[facility] [address] [place], [address] CA,Total 8.7 mg/dL Normal 8.5-10.1 [facility] Comment on above: Order Comment: 'TROP ' Serial specimen #1, #2 or #3: 1 Performed By: #### L 300.3900, L500.2500, L501.4020, L100.0100, L500.3400, L300.4310, BTS, L501.2450 ####[facility] [address] [place], [address] Chloride [Moles/Vol] 105 mmol/L Normal 98-107 [facility] Comment on above: Order Comment: 'TROP ' Serial specimen #1, #2 or #3: 1 Performed By: #### L 300.3900, L500.2500, L501.4020, L100.0100, L500.3400, L300.4310, BTS, L501.2450 ####[facility] [address] [place], [address] CO2 [Moles/Vol] 26.0 mmol/L Normal 21.0-32.0 [facility] Comment on above: Order Comment: 'TROP ' Serial specimen #1, #2 or #3: 1 Performed By: #### L 300.3900, L500.2500, L501.4020, L100.0100, L500.3400, L300.4310, BTS, L501.2450 ####[facility] [address] [place], [address] Creatinine [Mass/Vol] 1.30 mg/dL Normal 0.70-1.30 [facility] Comment on above: Order Comment: 'TROP ' Serial specimen #1, #2 or #3: 1 Result Comment: The validity of the calculated GFR GFRAA in patients over70 years has not been determined. Clinical correlation isessential. Performed By: #### L 300.3900, L500.2500, L501.4020, L100.0100, L500.3400, L300.4310, BTS, L501.2450 ####[facility] [address] [place], [address] ECRCL 45.94 ml/min Normal [facility] Comment on above: Order Comment: 'TROP ' Serial specimen #1, #2 or #3: 1 Performed By: #### L 300.3900, L500.2500, L501.4020, L100.0100, L500.3400, L300.4310, BTS, L501.2450 ####[facility] [address] [place], [address] EST GFR - AA 68 mL/min Normal >60 [facility] Comment on above: Order Comment: 'TROP ' Serial specimen #1, #2 or #3: 1 Result Comment: Afri can [place] GFR Calc Performed By: #### L 300.3900, L500.2500, L501.4020, L100.0100, L500.3400, L300.4310, BTS, L501.2450 ####[facility] [address] [place], [address] GAP 10 Normal 5-15 [facility] Comment on above: Order Comment: 'TROP ' Serial specimen #1, #2 or #3: 1 Performed By: #### L 300.3900, L500.2500, L501.4020, L100.0100, L500.3400, L300.4310, BTS, L501.2450 ####[facility] [address] [place], [address] GFR/1.73 sq M.predicted among non-blacks MDRD (S/P/Bld) [Vol rate/Area] 56 mL/min/{1.73_m2} Low >60 [facility] Comment on above: Order Comment: 'TROP ' Serial specimen #1, #2 or #3: 1 Result Comment: Non- GFR Calc Performed By: #### L 300.3900, L500.2500, L501.4020, L100.0100, L500.3400, L300.4310, BTS, L501.2450 ####[facility] [address] [place], [address] Glucose [Mass/Vol] 123 mg/dL High 74-106 [facility] Comment on above: Order Comment: 'TROP ' Serial specimen #1, #2 or #3: 1 Result Comment: Fast ing Glucose result from 100 to 125 mg/dLsuggests IMPAIRED HOMEOSTASIS per A.D.A. criteria. Performed By: #### L 300.3900, L500.2500, L501.4020, L100.0100, L500.3400, L300.4310, BTS, L501.2450 ####[facility] [address] [place], [address] Potassium [Moles/Vol] 3.7 mmol/L Normal 3.5-5.1 [facility] Comment on above: Order Comment: 'TROP ' Serial specimen #1, #2 or #3: 1 Performed By: #### L 300.3900, L500.2500, L501.4020, L100.0100, L500.3400, L300.4310, BTS, L501.2450 ####[facility] [address] [place], [address] Sodium [Moles/Vol] 141 mmol/L Normal 136-145 [facility] Comment on above: Order Comment: 'TROP ' Serial specimen #1, #2 or #3: 1 Performed By: #### L 300.3900, L500.2500, L501.4020, L100.0100, L500.3400, L300.4310, BTS, L501.2450 ####[facility] [address] [place], [address] Urea nitrogen [Mass/Vol] 18 mg/dL Normal 7-18 [facility] Comment on above: Order Comment: 'TROP ' Serial specimen #1, #2 or #3: 1 Performed By: #### L 300.3900, L500.2500, L501.4020, L100.0100, L500.3400, L300.4310, BTS, L501.2450 ####[facility] [address] [place], [address] CBC W/Diff, Automatedon 04-01 Absolute Lymph 1.15 X10 3/uL Normal 0.83-4.51 [facility] Comment on above: Performed By: #### L 300.3900, L500.2500, L501.4020, L100.0100, L500.3400, L300.4310, BTS, L501.2450 ####[facility] [address] [place], [address] Absolute Neut 4.0 X10 3/uL Normal 2.0-7.7 [facility] Comment on above: Performed By: #### L 300.3900, L500.2500, L501.4020, L100.0100, L500.3400, L300.4310, BTS, L501.2450 ####[facility] [address] [place], [address] Basophils/100 WBC (Bld) 0.5 % Normal 0-1 [facility] Comment on above: Performed By: #### L 300.3900, L500.2500, L501.4020, L100.0100, L500.3400, L300.4310, BTS, L501.2450 ####[facility] [address] [place], [address] Eosinophils/100 WBC (Bld) 1.3 % Normal 0-5 [facility] Comment on above: Performed By: #### L 300.3900, L500.2500, L501.4020, L100.0100, L500.3400, L300.4310, BTS, L501.2450 ####[facility] [address] [place], [address] Erythrocyte distribution width (RBC) [Ratio] 13.2 % Normal 11.6-14.6 [facility] Comment on above: Performed By: #### L 300.3900, L500.2500, L501.4020, L100.0100, L500.3400, L300.4310, BTS, L501.2450 ####[facility] [address] [place], [address] Hematocrit (Bld) [Volume fraction] 21.3 % Low 40-54 [facility] Comment on above: Performed By: #### L 300.3900, L500.2500, L501.4020, L100.0100, L500.3400, L300.4310, BTS, L501.2450 ####[facility] [address] [place], [address] Hemoglobin (Bld) [Mass/Vol] 6.7 g/dL Low 13.0-16.5 [facility] Comment on above: Performed By: #### L 300.3900, L500.2500, L501.4020, L100.0100, L500.3400, L300.4310, BTS, L501.2450 ####[facility] [address] [place], [address] IG% 0.500 Normal 0.0-0.9 [facility] Comment on above: Result Comment: IG% - Immature Granulocytes (promyelocytes, myelocytes andmetamyelocytes) > 1% indicates that a LEFT SHIFT is Present. Performed By: #### L 300.3900, L500.2500, L501.4020, L100.0100, L500.3400, L300.4310, BTS, L501.2450 ####[facility] [address] [place], [address] Lymphocytes/100 WBC (Bld) 19.0 % Normal 19-41 [facility] Comment on above: Performed By: #### L 300.3900, L500.2500, L501.4020, L100.0100, L500.3400, L300.4310, BTS, L501.2450 ####[facility] [address] [place], [address] MCH (RBC) [Entitic mass] 26.7 pg Low 27.0-32.0 [facility] Comment on above: Performed By: #### L 300.3900, L500.2500, L501.4020, L100.0100, L500.3400, L300.4310, BTS, L501.2450 ####[facility] [address], [address] MCHC (RBC) [Mass/Vol] 31.5 g/dL Low 32-36 [facility] Comment on above: Performed By: #### L 300.3900, L500.2500, L501.4020, L100.0100, L500.3400, L300.4310, BTS, L501.2450 ####[facility] [address] [place], [address] MCV (RBC) [Entitic vol] 84.9 fL Normal 80-94 [facility] Comment on above: Performed By: #### L 300.3900, L500.2500, L501.4020, L100.0100, L500.3400, L300.4310, BTS, L501.2450 ####[facility] [address] [place], [address] Monocytes/100 WBC (Bld) 13.1 % High 0-10 [facility] Comment on above: Performed By: #### L 300.3900, L500.2500, L501.4020, L100.0100, L500.3400, L300.4310, BTS, L501.2450 ####[facility] [address] [place], [address] Neutrophils/100 WBC (Bld) 65.6 % Normal 47-70 [facility] Comment on above: Performed By: #### L 300.3900, L500.2500, L501.4020, L100.0100, L500.3400, L300.4310, BTS, L501.2450 ####[facility] [address] [place], [address] Nucleated RBC (Bld) [#/Vol] 0 10*3/uL Normal 0-5 [facility] Comment on above: Performed By: #### L 300.3900, L500.2500, L501.4020, L100.0100, L500.3400, L300.4310, BTS, L501.2450 ####[facility] [address] [place], [address] Platelet mean volume (Bld) [Entitic vol] 9.5 fL Normal 6.2-12.0 [facility] Comment on above: Performed By: #### L 300.3900, L500.2500, L501.4020, L100.0100, L500.3400, L300.4310, BTS, L501.2450 ####[facility] [address] [place], [address] Platelets (Bld) [#/Vol] 304 10*3/uL Normal 150-450 [facility] Comment on above: Performed By: #### L 300.3900, L500.2500, L501.4020, L100.0100, L500.3400, L300.4310, BTS, L501.2450 ####[facility] [address] [place], [address] RBC (Bld) [#/Vol] 2.51 10*6/uL Low 4.6-6.2 [facility] Comment on above: Performed By: #### L 300.3900, L500.2500, L501.4020, L100.0100, L500.3400, L300.4310, BTS, L501.2450 ####[facility] [address] [place], [address] RDW SD 40.7 fl Normal 35.1-43.9 [facility] Comment on above: Performed By: #### L 300.3900, L500.2500, L501.4020, L100.0100, L500.3400, L300.4310, BTS, L501.2450 ####[facility] [address] [place], [address] WBC (Bld) [#/Vol] 6.0 10*3/uL Normal 4.4-11.0 [facility] Comment on above: Performed By: #### L 300.3900, L500.2500, L501.4020, L100.0100, L500.3400, L300.4310, BTS, L501.2450 ####[facility] [address] [place], [address] Absolute Lymph 1.28 X10 3/uL Normal 0.83-4.51 [facility] Comment on above: Performed By: #### L 501.4020, L500.4050, L300.8000, L503.6620, L100.0100 ####[facility] [address] [place], [address] Absolute Neut 3.2 X10 3/uL Normal 2.0-7.7 [facility] Comment on above: Performed By: #### L 501.4020, L500.4050, L300.8000, L503.6620, L100.0100 ####[facility] [address] [place], [address] Basophils/100 WBC (Bld) 0.4 % Normal 0-1 [facility] Comment on above: Performed By: #### L 501.4020, L500.4050, L300.8000, L503.6620, L100.0100 ####[facility] [address] [place], [address] Eosinophils/100 WBC (Bld) 1.9 % Normal 0-5 [facility] Comment on above: Performed By: #### L 501.4020, L500.4050, L300.8000, L503.6620, L100.0100 ####[facility] [address] [place], [address] Erythrocyte distribution width (RBC) [Ratio] 13.4 % Normal 11.6-14.6 [facility] Comment on above: Performed By: #### L 501.4020, L500.4050, L300.8000, L503.6620, L100.0100 ####[facility] [address] [place], [address] Hematocrit (Bld) [Volume fraction] 23.9 % Low 40-54 [facility] Comment on above: Performed By: #### L 501.4020, L500.4050, L300.8000, L503.6620, L100.0100 ####[facility] [address] [place], [address] Hemoglobin (Bld) [Mass/Vol] 7.2 g/dL Low 13.0-16.5 [facility] Comment on above: Performed By: #### L 501.4020, L500.4050, L300.8000, L503.6620, L100.0100 ####[facility] [address] [place], [address] IG% 0.400 Normal 0.0-0.9 [facility] Comment on above: Result Comment: IG% - Immature Granulocytes (promyelocytes, myelocytes andmetamyelocytes) > 1% indicates that a LEFT SHIFT is Present. Performed By: #### L 501.4020, L500.4050, L300.8000, L503.6620, L100.0100 ####[facility] [address] [place], [address] Lymphocytes/100 WBC (Bld) 24.1 % Normal 19-41 [facility] Comment on above: Performed By: #### L 501.4020, L500.4050, L300.8000, L503.6620, L100.0100 ####[facility] [address] [place], [address] MCH (RBC) [Entitic mass] 26.2 pg Low 27.0-32.0 [facility] Comment on above: Performed By: #### L 501.4020, L500.4050, L300.8000, L503.6620, L100.0100 ####[facility] [address] [place], [address] MCHC (RBC) [Mass/Vol] 30.1 g/dL Low 32-36 [facility] Comment on above: Performed By: #### L 501.4020, L500.4050, L300.8000, L503.6620, L100.0100 ####[facility] [address] [place], [address] MCV (RBC) [Entitic vol] 86.9 fL Normal 80-94 [facility] Comment on above: Performed By: #### L 501.4020, L500.4050, L300.8000, L503.6620, L100.0100 ####[facility] [address] [place], [address] Monocytes/100 WBC (Bld) 13.6 % High 0-10 [facility] Comment on above: Performed By: #### L 501.4020, L500.4050, L300.8000, L503.6620, L100.0100 ####[facility] [address] [place], [address] Neutrophils/100 WBC (Bld) 59.6 % Normal 47-70 [facility] Comment on above: Performed By: #### L 501.4020, L500.4050, L300.8000, L503.6620, L100.0100 ####[facility] [address] [place], [address] Nucleated RBC (Bld) [#/Vol] 0 10*3/uL Normal 0-5 [facility] Comment on above: Performed By: #### L 501.4020, L500.4050, L300.8000, L503.6620, L100.0100 ####[facility] [address] [place], [address] Platelet mean volume (Bld) [Entitic vol] 9.8 fL Normal 6.2-12.0 [facility] Comment on above: Performed By: #### L 501.4020, L500.4050, L300.8000, L503.6620, L100.0100 ####[facility] [address] [place], [address] Platelets (Bld) [#/Vol] 321 10*3/uL Normal 150-450 [facility] Comment on above: Performed By: #### L 501.4020, L500.4050, L300.8000, L503.6620, L100.0100 ####[facility] [address] [place], [address] RBC (Bld) [#/Vol] 2.75 10*6/uL Low 4.6-6.2 [facility] Comment on above: Performed By: #### L 501.4020, L500.4050, L300.8000, L503.6620, L100.0100 ####[facility] [address] [place], [address] RDW SD 42.7 fl Normal 35.1-43.9 [facility] Comment on above: Performed By: #### L 501.4020, L500.4050, L300.8000, L503.6620, L100.0100 ####[facility] [address] [place], [address] WBC (Bld) [#/Vol] 5.3 10*3/uL Normal 4.4-11.0 [facility] Comment on above: Performed By: #### L 501.4020, L500.4050, L300.8000, L503.6620, L100.0100 ####[facility] [address] [place], [address] CTA Chst, Abd, Pel W and/or WOon 04-11-2024 CTA Chst, Abd, Pel W and/or WO Normal [facility] Comprehensive Metabolic Prof ilon 04-11-2024 Albumin [Mass/Vol] 3.5 g/dL Normal 3.2-5.0 [facility] Comment on above: Order Comment: 1 Performed By: #### L 501.4020, L500.4050, L300.8000, L503.6620, L100.0100 ####[facility] [address] [place], [address] Albumin/Globulin [Mass ratio] 1.0 {ratio} Normal 0.9-2.4 [facility] Comment on above: Order Comment: 1 Performed By: #### L 501.4020, L500.4050, L300.8000, L503.6620, L100.0100 ####[facility] [address] [place], [address] ALK P 89 U/L Normal 45-117 [facility] Comment on above: Order Comment: 1 Performed By: #### L 501.4020, L500.4050, L300.8000, L503.6620, L100.0100 ####[facility] [address] [place], [address] ALT [Catalytic activity/Vol] 19 U/L Normal 16-61 [facility] Comment on above: Order Comment: 1 Performed By: #### L 501.4020, L500.4050, L300.8000, L503.6620, L100.0100 ####[facility] [address] [place], [address] AST [Catalytic activity/Vol] 19 U/L Normal 15-37 [facility] Comment on above: Order Comment: 1 Performed By: #### L 501.4020, L500.4050, L300.8000, L503.6620, L100.0100 ####[facility] [address] [place], [address] Bilirubin [Mass/Vol] 0.30 mg/dL Normal 0.20-1.00 [facility] Comment on above: Order Comment: 1 Result Comment: For patients on eltrombopag therapy, use of Dimension [place] TBIL is not recommended. Performed By: #### L 501.4020, L500.4050, L300.8000, L503.6620, L100.0100 ####[facility] [address] [place], [address] BUN/CRE 13.2 RATIO Normal 10-20 [facility] Comment on above: Order Comment: 1 Performed By: #### L 501.4020, L500.4050, L300.8000, L503.6620, L100.0100 ####[facility] [address] [place], [address] CA,Total 9.2 mg/dL Normal 8.5-10.1 [facility] Comment on above: Order Comment: 1 Performed By: #### L 501.4020, L500.4050, L300.8000, L503.6620, L100.0100 ####[facility] [address] [place], [address] Chloride [Moles/Vol] 104 mmol/L Normal 98-107 [facility] Comment on above: Order Comment: 1 Performed By: #### L 501.4020, L500.4050, L300.8000, L503.6620, L100.0100 ####[facility] [address] [place], [address] CO2 [Moles/Vol] 26.0 mmol/L Normal 21.0-32.0 [facility] Comment on above: Order Comment: 1 Performed By: #### L 501.4020, L500.4050, L300.8000, L503.6620, L100.0100 ####[facility] [address] [place], [address] Creatinine [Mass/Vol] 1.14 mg/dL Normal 0.70-1.30 [facility] Comment on above: Order Comment: 1 Result Comment: The validity of the calculated GFR GFRAA in patients over70 years has not been determined. Clinical correlation isessential. Performed By: #### L 501.4020, L500.4050, L300.8000, L503.6620, L100.0100 ####[facility] [address] [place], [address] EST GFR - AA 80 mL/min Normal >60 [facility] Comment on above: Order Comment: 1 Result Comment: Afri can [place] GFR Calc Performed By: #### L 501.4020, L500.4050, L300.8000, L503.6620, L100.0100 ####[facility] [address] [place], [address] GAP 6 Normal 5-15 [facility] Comment on above: Order Comment: 1 Performed By: #### L 501.4020, L500.4050, L300.8000, L503.6620, L100.0100 ####[facility] [address] [place], [address] GFR/1.73 sq M.predicted among non-blacks MDRD (S/P/Bld) [Vol rate/Area] 66 mL/min/{1.73_m2} Normal >60 [facility] Comment on above: Order Comment: 1 Result Comment: Non- GFR Calc Performed By: #### L 501.4020, L500.4050, L300.8000, L503.6620, L100.0100 ####[facility] [address] [place], [address] Globulin (S) [Mass/Vol] 3.4 g/dL Normal 2.2-4.2 [facility] Comment on above: Order Comment: 1 Performed By: #### L 501.4020, L500.4050, L300.8000, L503.6620, L100.0100 ####[facility] [address] [place], [address] Glucose [Mass/Vol] 108 mg/dL High 74-106 [facility] Comment on above: Order Comment: 1 Result Comment: Fast ing Glucose result from 100 to 125 mg/dLsuggests IMPAIRED HOMEOSTASIS per A.D.A. criteria. Performed By: #### L 501.4020, L500.4050, L300.8000, L503.6620, L100.0100 ####[facility] [address] [place], [address] Potassium [Moles/Vol] 3.9 mmol/L Normal 3.5-5.1 [facility] Comment on above: Order Comment: 1 Performed By: #### L 501.4020, L500.4050, L300.8000, L503.6620, L100.0100 ####[facility] [address] [place], [address] Sodium [Moles/Vol] 136 mmol/L Normal 136-145 [facility] Comment on above: Order Comment: 1 Performed By: #### L 501.4020, L500.4050, L300.8000, L503.6620, L100.0100 ####[facility] [address] [place], [address] T PROT 6.9 g/dL Normal 6.4-8.2 [facility] Comment on above: Order Comment: 1 Performed By: #### L 501.4020, L500.4050, L300.8000, L503.6620, L100.0100 ####[facility] [address] [place], [address] Urea nitrogen [Mass/Vol] 15 mg/dL Normal 7-18 [facility] Comment on above: Order Comment: 1 Performed By: #### L 501.4020, L500.4050, L300.8000, L503.6620, L100.0100 ####[facility] [address] [place], [address] D-Dimer Quantitative (DVT/PE )on 04-11-2024 D-DIMER QUANT 2.00 FEU/ug/m Invalid Interpretation Code 0.27-0.49 [facility] Comment on above: Result Comment: D-Di gita ELEVATED (>0.49): Additional studies and clinicalassessments are indicated to conclude diagnosis of:Deep Vein Thrombosis (DVT) or Pulmonary Embolism (PE)CRITICAL VALUE CALLED TO MARIELA OLSON04/11/24 Keon Bolanos.RESULTS READ BACK BY SAME. Performed By: #### L 501.4020, L500.4050, L300.8000, L503.6620, L100.0100 ####[facility] [address] [place], [address] Emergency Department Summary on 04-11-2024 Emergency Department Summary Normal [facility] H AND P Exam - Hospitaliston 04-11-2024 H&P Exam - Hospitalist Normal [facility] L501.4020on 04-11-2024 TROPONIN-I HS 124 pg/mL Invalid Interpretation Code 3.0-78.0 [facility] Comment on above: Order Comment: 'TROP ' Serial specimen #1, #2 or #3: 1 Result Comment: Plea se Note: New Test Units and Gender Specific Reference Ranges. For more information see Policy Stat Procedure [place] High Sensitivity Troponin (TNIH) and attachments. Performed By: #### L 300.3900, L500.2500, L501.4020, L100.0100, L500.3400, L300.4310, BTS, L501.2450 ####[facility] [address] [place], [address] TROPONIN-I HS 123 pg/mL Invalid Interpretation Code 3.0-78.0 [facility] Comment on above: Order Comment: 1 Result Comment: CRIT ICAL VALUE CALLED TO MARIELA OLSON04/11/24 1822 Gudelia Ramosxler.RESULTS READ BACK BY SAME. Please Note: New Test Units and Gender Specific Reference Ranges. For more information see Policy Stat Procedure [place] High Sensitivity Troponin (TNIH) and attachments. Performed By: #### L 501.4020, L500.4050, L300.8000, L503.6620, L100.0100 ####[facility] [address] [place], [place], [address] Lipaseon 04-11-2024 Lipase [Catalytic activity/Vol] 29 U/L Normal 13-75 [facility] Comment on above: Order Comment: 'TROP ' Serial specimen #1, #2 or #3: 1 Result Comment: Plea se note:LIPASE revised reference range effective 22.New Lipase methodology. Expected to produce lower valuesthan the previous assay method.NEW Reference Range: 13 - 75 U/L Performed By: #### L 300.3900, L500.2500, L501.4020, L100.0100, L500.3400, L300.4310, BTS, L501.2450 ####[facility] [address] [place], [address] Liver Profileon 04-11-2024 Albumin [Mass/Vol] 3.4 g/dL Normal 3.2-5.0 [facility] Comment on above: Order Comment: 'TROP ' Serial specimen #1, #2 or #3: 1 Performed By: #### L 300.3900, L500.2500, L501.4020, L100.0100, L500.3400, L300.4310, BTS, L501.2450 ####[facility] [address] [place], [address] ALK P 87 U/L Normal 45-117 [facility] Comment on above: Order Comment: 'TROP ' Serial specimen #1, #2 or #3: 1 Performed By: #### L 300.3900, L500.2500, L501.4020, L100.0100, L500.3400, L300.4310, BTS, L501.2450 ####[facility] [address] [place], [address] ALT [Catalytic activity/Vol] 18 U/L Normal 16-61 [facility] Comment on above: Order Comment: 'TROP ' Serial specimen #1, #2 or #3: 1 Performed By: #### L 300.3900, L500.2500, L501.4020, L100.0100, L500.3400, L300.4310, BTS, L501.2450 ####[facility] [address] [place], [address] AST [Catalytic activity/Vol] 15 U/L Normal 15-37 [facility] Comment on above: Order Comment: 'TROP ' Serial specimen #1, #2 or #3: 1 Performed By: #### L 300.3900, L500.2500, L501.4020, L100.0100, L500.3400, L300.4310, BTS, L501.2450 ####[facility] [address] [place], [address] Bilirubin [Mass/Vol] 0.30 mg/dL Normal 0.20-1.00 [facility] Comment on above: Order Comment: 'TROP ' Serial specimen #1, #2 or #3: 1 Result Comment: For patients on eltrombopag therapy, use of Dimension [place] TBIL is not recommended. Performed By: #### L 300.3900, L500.2500, L501.4020, L100.0100, L500.3400, L300.4310, BTS, L501.2450 ####[facility] [address] [place], [address] Bilirubin.direct [Mass/Vol] 0.09 mg/dL Normal 0.00-0.30 [facility] Comment on above: Order Comment: 'TROP ' Serial specimen #1, #2 or #3: 1 Performed By: #### L 300.3900, L500.2500, L501.4020, L100.0100, L500.3400, L300.4310, BTS, L501.2450 ####[facility] [address] [place], [address] Globulin (S) [Mass/Vol] 3.2 g/dL Normal 2.2-4.2 [facility] Comment on above: Order Comment: 'TROP ' Serial specimen #1, #2 or #3: 1 Performed By: #### L 300.3900, L500.2500, L501.4020, L100.0100, L500.3400, L300.4310, BTS, L501.2450 ####[facility] [address] [place], [address] T PROT 6.6 g/dL Normal 6.4-8.2 [facility] Comment on above: Order Comment: 'TROP ' Serial specimen #1, #2 or #3: 1 Performed By: #### L 300.3900, L500.2500, L501.4020, L100.0100, L500.3400, L300.4310, BTS, L501.2450 ####[facility] [address] [place], [address] Partial Thromboplast Timeon 04-11-2024 aPTT Coag (Bld) [Time] 27.9 s Normal 24.1-36.2 [facility] Comment on above: Performed By: #### L 300.3900, L500.2500, L501.4020, L100.0100, L500.3400, L300.4310, BTS, L501.2450 ####[facility] [address] [place], [address] Prothrombin Time w/INRon INR Coag (PPP) [Relative time] 1.1 {INR} Normal [facility] Comment on above: Performed By: #### L 300.3900, L500.2500, L501.4020, L100.0100, L500.3400, L300.4310, BTS, L501.2450 ####[facility] [address] [place], [address] PT Coag (PPP) [Time] 13.8 s Normal 11.7-14.9 [facility] Comment on above: Performed By: #### L 300.3900, L500.2500, L501.4020, L100.0100, L500.3400, L300.4310, BTS, L501.2450 ####[facility] [address] [place], [address] Type AND Screenon 04-11-2024 Ab SCREEN GEL Negative Normal [facility] Comment on above: Order Comment: A Performed By: #### L 300.3900, L500.2500, L501.4020, L100.0100, L500.3400, L300.4310, BTS, L501.2450 ####[facility] [address] [place], [address] ABO and Rh group Nom (Bld) Blood group O Rh(D) positive Normal [facility] Comment on above: Order Comment: A Performed By: #### L 300.3900, L500.2500, L501.4020, L100.0100, L500.3400, L300.4310, BTS, L501.2450 ####[facility] [address] [place], [address] MR/BMS.BVSon 02-15-2024 MR/BMS.BVS Normal [facility] CREATININE FINGERSTICKon CREATININE WB < 1.0 Normal 0.70-1.30 [facility] Comment on above: Performed By: #### L 9100.0200 ####[facility] [address] [place], [address] EGFR WB > 60.0000 Normal >60 [facility] Comment on above: Performed By: #### L 9100.0200 ####[facility] [address] [place], [address] CTA Abd w/Runoff W/WO Contra ston 02-03-2024 CTA Abd w/Runoff W/WO Contrast Normal [facility] Absolute lymphocyte countOrd ered By: Stevie Vela on 12-11-2023 Lymphocytes Auto (Unsp spec) [#/Vol] 1.38 10*3/uL 0.83-4.51 [facility] Automated lymphocyte count a s percentage of total leukocytesOrdered By: Stevie Vela on 12-11-2023 Lymphocytes/100 WBC Auto (Unsp spec) 23.2 % 19-41 [facility] Basophil percentageOrdered B y: Stevie Vela on 12-11-2023 Basophils/100 WBC (Bld) 0.5 % 0-1 [facility] Chloride [Moles/Vol] 105 mmol/L 98-107 [facility] Eosinophils/100 WBC (Bld) 2.2 % 0-5 [facility] Glucose [Mass/Vol] 107 mg/dL 74-106 [facility] Comment on above: Fasting Glucose resu lt from 100 to 125 mg/dL suggests IMPAIRED HOMEOSTASIS per A.D.A. criteria. Hemoglobin (Bld) [Mass/Vol] 11.7 g/dL 13.0-16.5 [facility] Monocytes/100 WBC (Bld) 9.4 % 0-10 [facility] Neutrophils (Bld) [#/Vol] 3.8 10*3/uL 2.0-7.7 [facility] Neutrophils/100 WBC (Bld) 64.4 % 47-70 [facility] Potassium [Moles/Vol] 4.1 mmol/L 3.5-5.1 [facility] Sodium [Moles/Vol] 138 mmol/L 136-145 [facility] WBC (Bld) [#/Vol] 5.9 10*3/uL 4.4-11.0 [facility] Determination of erythrocyte mean corpuscular volume (MCV)Ordered By: Setvie Vela on 12-11-2023 MCV (RBC) [Entitic vol] 90.7 fL 80-94 [facility] Erythrocyte distribution wid th ratioOrdered By: Stevie Vela on 12-11-2023 Erythrocyte distribution width (RBC) [Ratio] 12.8 % 11.6-14.6 [facility] Erythrocyte distribution wid th standard deviationOrdered By: Stevie Vela on 12-11-2023 Erythrocyte distribution width (RBC) [Entitic vol] 41.6 fL 35.1-43.9 [facility] Hematocrit Auto (Bld) [Volum e fraction]Ordered By: Stevie Vela on 12-11-2023 Hematocrit (Bld) [Volume fraction] 35.1 % 40-54 [facility] Immature granulocytes/100 WB C Auto (Bld)Ordered By: Stevie Vela on 12-11-2023 Immature granulocytes/100 WBC (Bld) 0.300 % 0.0-0.9 [facility] Comment on above: IG% - Immature Granu locytes (promyelocytes, myelocytes and metamyelocytes) > 1% indicates that a LEFT SHIFT is Present. Laboratory - Chemistry and C hemistry - challengeOrdered By: Stevie Vela on 12-11-2023 CO2 [Moles/Vol] 27.0 mmol/L 21.0-32.0 [facility] Urea nitrogen/Creatinine [Mass ratio] 20.3 mg/mg 10-20 [facility] Laboratory - Hematology and Cell countsOrdered By: Stevie Vela on 12-11-2023 MCH (RBC) [Entitic mass] 30.2 pg 27.0-32.0 [facility] MCHC (RBC) [Mass/Vol] 33.3 g/dL 32-36 [facility] Nucleated RBC/100 WBC (Bld) [Ratio] 0 % 0-5 [facility] Platelet mean volume (Bld) [Entitic vol] 9.8 fL 6.2-12.0 [facility] Platelets (Bld) [#/Vol] 233 10*3/uL 150-450 [facility] No Panel InformationOrdered By: Stevie Vela on 12-11-2023 Estimated Creatinine Clearance Calc 54.39 ml/min [facility] Estimated GFR (MDRD) Amer 76 mL/min >60 [facility] Comment on above: GFR Calc Estimated GFR (MDRD) Non-Af Amer 63 mL/min >60 [facility] Comment on above: Non- GFR Calc Troponin I High Sensitivity 77 pg/mL 3.0-78.0 [facility] Comment on above: Please Note: New Wendy t Units and Gender Specific Reference Ranges. For more information see Policy Stat Procedure [place] High Sensitivity Troponin (TNIH) and attachments. RBC Auto (Bld) [#/Vol]Ordere d By: Stevie Vela on 12-11-2023 RBC (Bld) [#/Vol] 3.87 10*6/uL 4.6-6.2 [facility] Serum or plasma calcium shagufta urement (mass/volume)Ordered By: Stevie Vela on 12-11-2023 Calcium [Mass/Vol] 8.8 mg/dL 8.5-10.1 [facility] Serum or plasma creatinine m easurement (mass/volume)Ordered By: Stevie Vela on 12-11-2023 Creatinine [Mass/Vol] 1.18 mg/dL 0.70-1.30 [facility] Comment on above: The validity of the calculated GFR & GFRAA in patients over 70 years has not been determined. Clinical correlation is essential. Serum or plasma urea nitroge n measurement (mass/volume)Ordered By: Stevie Vela on 12-11-2023 Urea nitrogen [Mass/Vol] 24 mg/dL 7-18 [facility] Thin prep Papanicolaou smear with manual screeningOrdered By: Stevie Vela on 12-11-2023 Thin prep Papanicolaou smear with manual screening 6 -15 [facility] Basophil percentageOrdered B y: Neville Islas on 08-22-2023 Testosterone [Mass/Vol] 374 ng/dL 264-916 [facility] Comment on above: Adult male reference interval is based on a population ofhealthy nonobese males (BMI <30) between 19 and 39 yearsold. michelle Jordan.al. JCEM 2017,102;8219-8591. PMID:[id number]. Free testosterone percentage Ordered By: Neville Islas on 08-22-2023 Testosterone Free/Testosterone.tota l [Mass fraction] 1.85 % 1.50-4.20 [facility] Laboratory - Chemistry and C hemistry - challengeOrdered By: Neville Islas on 08-22-2023 Prolactin IA Qn 11.4 ng/mL [facility] Comment on above: NORMAL REFERENCE RAN GES FEMALE NON- 2.2 - 30.3 ng/mL 8.1 - 347.6 ng/mL POST-MENOPAUSAL 0.7 - 31.5 ng/mL MALE 2.5 - 17.4 ng/mL Transferrin [Mass/Vol] 250 mg/dL 177-329 [facility] Comment on above: Performed at: - [address] [id number] Director: Jian Paredes PhD, Phone: [phone] at: [facility] [address] [id number] Director: Tejal Dumas MD, Phone: [phone] Serum or plasma testosterone free measurement (mass/volume)Ordered By: Neville Islas on 08-22-2023 Testosterone Free [Mass/Vol] 6.92 ng/dL 5.00-21.00 [facility] Serum or plasma thyroid stim ulating hormone (TSH) measurement (units/volume)Ordered By: Neville Islas on 08-22-2023 TSH Qn 4.59 uIU/mL 0.358-3.74 [facility] Absolute lymphocyte countOrd ered By: Darrel Sanders on 08-16-2023 Lymphocytes Auto (Unsp spec) [#/Vol] 2.04 10*3/uL 0.83-4.51 [facility] Basophil percentageOrdered B y: Darrel Sanders on 08-16-2023 Basophil percentage 3.1 mg/dL 2.5-4.9 [facility] Basophils/100 WBC (Bld) 0.3 % 0-1 [facility] Bilirubin [Mass/Vol] 0.80 mg/dL 0.20-1.00 [facility] Comment on above: For patients on eltr ombopag therapy, use of Dimension [place] TBIL is not recommended. Chloride [Moles/Vol] 105 mmol/L 98-107 [facility] Cholesterol [Mass/Vol] 203 mg/dL <200 [facility] Comment on above: <200 mg/dL Desirable 200-240 mg/dL Borderline >240 mg/dL High Risk Eosinophils/100 WBC (Bld) 1.9 % 0-5 [facility] Glucose [Mass/Vol] 91 mg/dL 74-106 [facility] Neutrophils (Bld) [#/Vol] 3.5 10*3/uL 2.0-7.7 [facility] Neutrophils/100 WBC (Bld) 56.6 % 47-70 [facility] Potassium [Moles/Vol] 3.7 mmol/L 3.5-5.1 [facility] Protein [Mass/Vol] 7.3 g/dL 6.4-8.2 [facility] Sodium [Moles/Vol] 137 mmol/L 136-145 [facility] Triglyceride [Mass/Vol] 105 mg/dL <199 [facility] Comment on above: The drugs N-Acetylcy steine and Metamizole may falsely depress this assay.Serum Triglycerides Reference Interval Normal <150 mg/dL Borderline high 150 - 199 mg/dL High 200 - 499 mg/dL Very High > or = 500 mg/dL WBC (Bld) [#/Vol] 6.2 10*3/uL 4.4-11.0 [facility] Blood erythrocytes count (nu mber/volume)Ordered By: Darrel Sanders on 08-16-2023 RBC (Bld) [#/Vol] 4.25 10*6/uL 4.6-6.2 [facility] Blood hemoglobin measurement (mass/volume)Ordered By: Darrel Sanders on 08-16-2023 Hemoglobin (Bld) [Mass/Vol] 12.7 g/dL 13.0-16.5 [facility] Blood lymphocytes/100 leukoc ytesOrdered By: Darrel Sanders on 08-16-2023 Lymphocytes/100 WBC (Bld) 32.7 % 19-41 [facility] Blood monocytes/100 leukocyt esOrdered By: Darrel Sanders on 08-16-2023 Monocytes/100 WBC (Bld) 8.3 % 0-10 [facility] Blood platelet mean volumeOr dered By: Darrel Sanders on 08-16-2023 Platelet mean volume (Bld) [Entitic vol] 9.9 fL 6.2-12.0 [facility] Determination of erythrocyte mean corpuscular volume (MCV)Ordered By: Darrel Sanders on 08-16-2023 MCV (RBC) [Entitic vol] 89.2 fL 80-94 [facility] Hematocrit Auto (Bld) [Volum e fraction]Ordered By: Darrel Sanders on 08-16-2023 Hematocrit (Bld) [Volume fraction] 37.9 % 40-54 [facility] Laboratory - Chemistry and C hemistry - challengeOrdered By: Darrel Sanders on 08-16-2023 ALP [Catalytic activity/Vol] 87 U/L 45-117 [facility] ALT [Catalytic activity/Vol] 28 U/L 16-61 [facility] CO2 [Moles/Vol] 26.0 mmol/L 21.0-32.0 [facility] Globulin (S) [Mass/Vol] 3.5 g/dL 2.2-4.2 [facility] Magnesium [Mass/Vol] 2.2 mg/dL 1.6-2.6 [facility] Urea nitrogen/Creatinine [Mass ratio] 18.6 mg/mg 10-20 [facility] Laboratory - Hematology and Cell countsOrdered By: Darrel Sanders on 08-16-2023 Erythrocyte distribution width (RBC) [Entitic vol] 43.4 fL 35.1-43.9 [facility] Erythrocyte distribution width (RBC) [Ratio] 13.3 % 11.6-14.6 [facility] Immature granulocytes/100 WBC (Bld) 0.200 % 0.0-0.9 [facility] Comment on above: IG% - Immature Granu locytes (promyelocytes, myelocytes and metamyelocytes) > 1% indicates that a LEFT SHIFT is Present. MCH (RBC) [Entitic mass] 29.9 pg 27.0-32.0 [facility] Nucleated RBC/100 WBC (Bld) [Ratio] 0 % 0-5 [facility] MCHC Auto (RBC) [Mass/Vol]Or dered By: Darrel Sanders on 08-16-2023 MCHC (RBC) [Mass/Vol] 33.5 g/dL 32-36 [facility] No Panel InformationOrdered By: Darrel Sanders on 08-16-2023 Estimated Creatinine Clearance Calc 58.72 ml/min [facility] Estimated GFR (MDRD) Amer 91 mL/min >60 [facility] Comment on above: GFR Calc Estimated GFR (MDRD) Non-Af Amer 75 mL/min >60 [facility] Comment on above: Non- GFR Calc D-Dimer Quantitative (PE/DVT) 0.79 FEU/ug/m 0.27-0.49 [facility] Comment on above: D-Dimer ELEVATED (>0 .49): Additional studies and clinicalassessments are indicated to conclude diagnosis of:Deep Vein Thrombosis (DVT) or Pulmonary Embolism (PE)CRITICAL VALUE VERIFIED. CALLED TO [id number]/16/24 Nannette Cardenas.RESULTS READ BACK BY SAME. Troponin I High Sensitivity 96 pg/mL 3.0-78.0 [facility] Comment on above: Please Note: New Wendy t Units and Gender Specific Reference Ranges. For more information see Policy Stat Procedure [place] High Sensitivity Troponin (TNIH) and attachments. Platelets bldOrdered By: Esdras Sanders on 08-16-2023 Platelets (Bld) [#/Vol] 250 10*3/uL 150-450 [facility] Serum or plasma albumin shagufta urement (mass/volume)Ordered By: Darrel Sanders on 08-16-2023 Albumin [Mass/Vol] 3.8 g/dL 3.2-5.0 [facility] Serum or plasma albumin/glob ulin mass ratioOrdered By: Darrel Sanders on 08-16-2023 Albumin/Globulin [Mass ratio] 1.1 {ratio} 0.9-2.4 [facility] Serum or plasma calcium shagufta urement (mass/volume)Ordered By: Darrel Sanders on 08-16-2023 Calcium [Mass/Vol] 9.4 mg/dL 8.5-10.1 [facility] Serum or plasma cholesterol in HDL measurement (mass/volume)Ordered By: Darrel Sanders on 08-16-2023 Cholesterol in HDL [Mass/Vol] 59 mg/dL >40 [facility] Comment on above: The drugs N-Acetylcy steine and Metamizole may falsely depress this assay. Reference Range HDL <40 mg/dL Low HDL Cholesterol HDL >or= 60 mg/dL High HDL Cholesterol Serum or plasma cholesterol in VLDL measurement (mass/volume)Ordered By: Darrel Sanders on 08-16-2023 Cholesterol in VLDL [Mass/Vol] 21 mg/dL 5-40 [facility] Serum or plasma creatinine m easurement (mass/volume)Ordered By: Darrel Sanders on 08-16-2023 Creatinine [Mass/Vol] 1.02 mg/dL 0.70-1.30 [facility] Comment on above: The validity of the calculated GFR & GFRAA in patients over 70 years has not been determined. Clinical correlation is essential. Serum or plasma low density lipoprotein (LDL) cholesterol measurement (mass/volume)Ordered By: Darrel Sanders on 08-16-2023 Cholesterol in LDL [Mass/Vol] 123 mg/dL 0-130 [facility] Serum or plasma thyroid stim ulating hormone (TSH) measurement (units/volume)Ordered By: uLcy Polanco on 08-16-2023 TSH Qn 4.27 uIU/mL 0.358-3.74 [facility] Serum or plasma urea nitroge n measurement (mass/volume)Ordered By: Darrel Sanders on 08-16-2023 Urea nitrogen [Mass/Vol] 19 mg/dL 7-18 [facility] Thin prep Papanicolaou smear with manual screeningOrdered By: Darrel Sanders on 08-16-2023 Thin prep Papanicolaou smear with manual screening 25 U/L 15-37 [facility] Thin prep Papanicolaou smear with manual screening 6 5-15 [facility] Thin prep Papanicolaou smear with manual screeningOrdered By: Lucy Polanco on 08-16-2023 Thin prep Papanicolaou smear with manual screening 0.97 ng/dL 0.76-1.46 [facility] Absolute lymphocyte countOrd ered By: Faustina Garrison on 08-15-2023 Lymphocytes Auto (Unsp spec) [#/Vol] 1.56 10*3/uL 0.83-4.51 [facility] Basophil percentageOrdered B y: Faustina Garrison on 08-15-2023 Basophil percentage 0 SEEN /hpf 0-5 [facility] Basophils/100 WBC (Bld) 0.5 % 0-1 [facility] Bilirubin [Mass/Vol] 0.60 mg/dL 0.20-1.00 [facility] Comment on above: For patients on eltr ombopag therapy, use of Dimension [place] TBIL is not recommended. Chloride [Moles/Vol] 100 mmol/L 98-107 [facility] Eosinophils/100 WBC (Bld) 2.9 % 0-5 [facility] Glucose [Mass/Vol] 99 mg/dL 74-106 [facility] Neutrophils (Bld) [#/Vol] 3.9 10*3/uL 2.0-7.7 [facility] Neutrophils/100 WBC (Bld) 62.4 % 47-70 [facility] Potassium [Moles/Vol] 4.7 mmol/L 3.5-5.1 [facility] Comment on above: Slight Hemolysis, Re sult may be falsely increased. Protein [Mass/Vol] 7.6 g/dL 6.4-8.2 [facility] Sodium [Moles/Vol] 136 mmol/L 136-145 [facility] WBC (Bld) [#/Vol] 6.2 10*3/uL 4.4-11.0 [facility] Bilirubin Test strip Ql (U)O rdered By: Faustina Garrison on 08-15-2023 Bilirubin Ql (U) Negative Negative [facility] Blood erythrocytes count (nu mber/volume)Ordered By: Faustina Garrison on 08-15-2023 RBC (Bld) [#/Vol] 4.26 10*6/uL 4.6-6.2 [facility] Blood hemoglobin measurement (mass/volume)Ordered By: Faustina Garrison on 08-15-2023 Hemoglobin (Bld) [Mass/Vol] 13.2 g/dL 13.0-16.5 [facility] Blood lymphocytes/100 leukoc ytesOrdered By: Fasutina Garrison on 08-15-2023 Lymphocytes/100 WBC (Bld) 25.1 % 19-41 [facility] Blood monocytes/100 leukocyt esOrdered By: Faustina Garrison on 08-15-2023 Monocytes/100 WBC (Bld) 8.8 % 0-10 [facility] Blood platelet mean volumeOr dered By: Faustina Garrison on 08-15-2023 Platelet mean volume (Bld) [Entitic vol] 9.9 fL 6.2-12.0 [facility] Determination of erythrocyte mean corpuscular volume (MCV)Ordered By: Faustina Garrison on 08-15-2023 MCV (RBC) [Entitic vol] 90.6 fL 80-94 [facility] Hematocrit Auto (Bld) [Volum e fraction]Ordered By: Faustina Garrison on 08-15-2023 Hematocrit (Bld) [Volume fraction] 38.6 % 40-54 [facility] Ketones Test strip Ql (U)Ord ered By: Faustina Garrison on 08-15-2023 Ketones Ql (U) Negative Negative [facility] Laboratory - Chemistry and C hemistry - challengeOrdered By: Faustina Garrison on 08-15-2023 ALP [Catalytic activity/Vol] 97 U/L 45-117 [facility] ALT [Catalytic activity/Vol] 31 U/L 16-61 [facility] CO2 [Moles/Vol] 28.0 mmol/L 21.0-32.0 [facility] Globulin (S) [Mass/Vol] 3.7 g/dL 2.2-4.2 [facility] Magnesium [Mass/Vol] 2.0 mg/dL 1.6-2.6 [facility] Comment on above: Slight Hemolysis, Re sult may be falsely increased. Urea nitrogen/Creatinine [Mass ratio] 18.0 mg/mg 10-20 [facility] - Hematology and Cell countsOrdered By: Faustina Garrison on 08-15-2023 Erythrocyte distribution width (RBC) [Entitic vol] 43.6 fL 35.1-43.9 [facility] Erythrocyte distribution width (RBC) [Ratio] 13.2 % 11.6-14.6 [facility] Immature granulocytes/100 WBC (Bld) 0.300 % 0.0-0.9 [facility] Comment on above: IG% - Immature Granu locytes (promyelocytes, myelocytes and metamyelocytes) > 1% indicates that a LEFT SHIFT is Present. MCH (RBC) [Entitic mass] 31.0 pg 27.0-32.0 [facility] Nucleated RBC/100 WBC (Bld) [Ratio] 0 % 0-5 [facility] MCHC Auto (RBC) [Mass/Vol]Or dered By: Faustina Garrison on 08-15-2023 MCHC (RBC) [Mass/Vol] 34.2 g/dL 32-36 [facility] Mucus LM Ql (Urine sed)Order ed By: Faustina Garrison on 08-15-2023 Mucus Ql (Urine sed) 0 SEEN /hpf [facility] Nitrite Test strip Ql (U)Ord ered By: Faustina Garrison on 08-15-2023 Nitrite Ql (U) Negative Negative [facility] No Panel InformationOrdered By: Faustina Garrison on 08-15-2023 Troponin I High Sensitivity 85 pg/mL 3.0-78.0 [facility] Comment on above: Please Note: New Wendy t Units and Gender Specific Reference Ranges. For more information see Policy Stat Procedure [place] High Sensitivity Troponin (TNIH) and attachments. Estimated Creatinine Clearance Calc 52.21 ml/min [facility] Estimated GFR (MDRD) Amer 82 mL/min >60 [facility] Comment on above: GFR Calc Estimated GFR (MDRD) Non-Af Amer 68 mL/min >60 [facility] Comment on above: Non- GFR Calc Platelets bldOrdered By: Natali Garrison on 08-15-2023 Platelets (Bld) [#/Vol] 242 10*3/uL 150-450 [facility] Protein Test strip Ql (U)Ord ered By: Faustina Garrison on 08-15-2023 Protein Ql (U) Negative Negative [facility] Serum or plasma albumin shagufta urement (mass/volume)Ordered By: Faustina Garrison on 08-15-2023 Albumin [Mass/Vol] 3.9 g/dL 3.2-5.0 [facility] Serum or plasma albumin/glob ulin mass ratioOrdered By: Faustina Garrison on 08-15-2023 Albumin/Globulin [Mass ratio] 1.1 {ratio} 0.9-2.4 [facility] Serum or plasma calcium shagufta urement (mass/volume)Ordered By: Faustina Garrison on 08-15-2023 Calcium [Mass/Vol] 9.3 mg/dL 8.5-10.1 [facility] Serum or plasma creatinine m easurement (mass/volume)Ordered By: Faustina Garrison on 08-15-2023 Creatinine [Mass/Vol] 1.11 mg/dL 0.70-1.30 [facility] Comment on above: The validity of the calculated GFR & GFRAA in patients over 70 years has not been determined. Clinical correlation is essential. Serum or plasma urea nitroge n measurement (mass/volume)Ordered By: Faustina Garrison on 08-15-2023 Urea nitrogen [Mass/Vol] 20 mg/dL 7-18 [facility] Squamous epithelial cells de tection in urine sediment by light microscopyOrdered By: Faustina Garrison on 08-15-2023 Epithelial cells.squamous LM Ql (Urine sed) 0-5 SEEN /hpf 0-5 [facility] Thin prep Papanicolaou smear with manual screeningOrdered By: Faustina Garrison on 08-15-2023 Thin prep Papanicolaou smear with manual screening 29 U/L 15-37 [facility] Comment on above: Slight Hemolysis, Re sult may be falsely increased. Thin prep Papanicolaou smear with manual screening 8 5-15 [facility] Urine blood detectionOrdered By: Faustina Garrison on 08-15-2023 RBC Ql (U) Negative Negative [facility] RBC Ql (U) 0 SEEN /hpf 0-5 [facility] Urine clarityOrdered By: Natali Garrison on 08-15-2023 Clarity (U) Sl. Cloudy Clear [facility] Urine color determinationOrd ered By: Faustina Garrison on 08-15-2023 Color (U) Yellow Yellow [facility] Urine glucose detectionOrder ed By: Faustina Garrison on 08-15-2023 Glucose Ql (U) Normal mg/dl Normal [facility] Urine leukocyte esterase det ection by dipstickOrdered By: Faustina Garrison on 08-15-2023 Leukocyte esterase Test strip Ql (U) Negative Negative [facility] Urine pHOrdered By: Faustina bartlett on 08-15-2023 pH (U) 8.0 [pH] 5.0 - 8.0 [facility] Urine sediment bacteria coun t by microscopy (number/high power field)Ordered By: Faustina Garrison on 08-15-2023 Bacteria LM.HPF (Urine sed) [#/Area] 0 /[HPF] None Seen [facility] Urine specific gravity measu rementOrdered By: Faustina Garrison on 08-15-2023 Specific gravity (U) [Rel density] 1.010 1.002-1.030 [facility] Urobilinogen Auto test strip Ql (U)Ordered By: Faustina Garrison on 08-15-2023 Urobilinogen Ql (U) Normal mg/dl Normal [facility] Absolute lymphocyte countOrd ered By: Mariela Olson on 01-25-2023 Lymphocytes Auto (Unsp spec) [#/Vol] 2.09 10*3/uL 0.83-4.51 [facility] Basophil percentageOrdered B y: Mariela Olson on 01-25-2023 Basophils/100 WBC (Bld) 0.6 % 0-1 [facility] Chloride [Moles/Vol] 106 mmol/L 98-107 [facility] Eosinophils/100 WBC (Bld) 6.0 % 0-5 [facility] Glucose [Mass/Vol] 98 mg/dL 74-106 [facility] Neutrophils (Bld) [#/Vol] 3.6 10*3/uL 2.0-7.7 [facility] Neutrophils/100 WBC (Bld) 52.4 % 47-70 [facility] Potassium [Moles/Vol] 4.2 mmol/L 3.5-5.1 [facility] Sodium [Moles/Vol] 138 mmol/L 136-145 [facility] WBC (Bld) [#/Vol] 6.9 10*3/uL 4.4-11.0 [facility] Blood erythrocytes count (nu mber/volume)Ordered By: Mariela Olson on 01-25-2023 RBC (Bld) [#/Vol] 4.64 10*6/uL 4.6-6.2 [facility] Blood hemoglobin measurement (mass/volume)Ordered By: Mariela Olson on 01-25-2023 Hemoglobin (Bld) [Mass/Vol] 14.2 g/dL 13.0-16.5 [facility] Blood lymphocytes/100 leukoc ytesOrdered By: Mariela Olson on 01-25-2023 Lymphocytes/100 WBC (Bld) 30.4 % 19-41 [facility] Blood monocytes/100 leukocyt esOrdered By: Mariela Olson on 01-25-2023 Monocytes/100 WBC (Bld) 10.3 % 0-10 [facility] Blood platelet mean volumeOr dered By: Mariela Olson on 01-25-2023 Platelet mean volume (Bld) [Entitic vol] 10.0 fL 6.2-12.0 [facility] Determination of erythrocyte mean corpuscular volume (MCV)Ordered By: Mariela Olson on 01-25-2023 MCV (RBC) [Entitic vol] 92.7 fL 80-94 [facility] Hematocrit Auto (Bld) [Volum e fraction]Ordered By: Mariela Olson on 01-25-2023 Hematocrit (Bld) [Volume fraction] 43.0 % 40-54 [facility] - Chemistry and C hemistry - challengeOrdered By: Mariela Olson on 01-25-2023 CO2 [Moles/Vol] 28.0 mmol/L 21.0-32.0 [facility] Magnesium [Mass/Vol] 2.3 mg/dL 1.6-2.6 [facility] Urea nitrogen/Creatinine [Mass ratio] 17.7 mg/mg 10-20 [facility] - Hematology and Cell countsOrdered By: Mariela Olson on 01-25-2023 Erythrocyte distribution width (RBC) [Entitic vol] 43.2 fL 35.1-43.9 [facility] Erythrocyte distribution width (RBC) [Ratio] 12.7 % 11.6-14.6 [facility] Immature granulocytes/100 WBC (Bld) 0.300 % 0.0-0.9 [facility] Comment on above: IG% - Immature Granu locytes (promyelocytes, myelocytes and metamyelocytes) > 1% indicates that a LEFT SHIFT is Present. MCH (RBC) [Entitic mass] 30.6 pg 27.0-32.0 [facility] Nucleated RBC/100 WBC (Bld) [Ratio] 0 % 0-5 [facility] MCHC Auto (RBC) [Mass/Vol]Or dered By: Mariela Olson on 01-25-2023 MCHC (RBC) [Mass/Vol] 33.0 g/dL 32-36 [facility] No Panel InformationOrdered By: Mariela Olson on 01-25-2023 Estimated GFR (MDRD) Amer 72 mL/min >60 [facility] Comment on above: GFR Calc Estimated GFR (MDRD) Non-Af Amer 60 mL/min >60 [facility] Comment on above: Non- GFR Calc Platelets bldOrdered By: Hortencia Olson on 01-25-2023 Platelets (Bld) [#/Vol] 242 10*3/uL 150-450 [facility] Serum or plasma calcium shagufta urement (mass/volume)Ordered By: Mariela Olson on 01-25-2023 Calcium [Mass/Vol] 9.3 mg/dL 8.5-10.1 [facility] Serum or plasma creatinine m easurement (mass/volume)Ordered By: Mariela Olson on 01-25-2023 Creatinine [Mass/Vol] 1.24 mg/dL 0.70-1.30 [facility] Comment on above: The validity of the calculated GFR & GFRAA in patients over 70 years has not been determined. Clinical correlation is essential. Serum or plasma urea nitroge n measurement (mass/volume)Ordered By: Mariela Olson on 01-25-2023 Urea nitrogen [Mass/Vol] 22 mg/dL 7 [facility] Thin prep Papanicolaou smear with manual screeningOrdered By: Mariela Olson on 01-25-2023 Thin prep Papanicolaou smear with manual screening 4 12-13 [facility] Vital Signs Date Time Vital Sign Value Performing Clinician Facility 01-14-2025 09:01-0400 Body height 170.18 cm Mariela Olson [employer] [facility] Work Phone: [facility] 01-14-2025 09:01-0400 Body mass index (BMI) [Ratio] 23.5 kg/m2 Mariela Shahram [employer] [facility] Work Phone: [facility] 01-14-2025 09:01-0400 Body weight 68.03 kg Mariela Olson [employer] [facility] Work Phone: [facility] 01-09-2025 15:28-0400 Body height 170.18 cm Mariela Shahram [employer] Work Phone: [facility] 01-09-2025 15:28-0400 Body mass index (BMI) [Ratio] 24.1 kg/m2 Mariela Shahram [employer] [facility] Work Phone: [facility] 01-09-2025 15:28-0400 Body temperature 98.4 [degF] Mariela Olson [employer] Work Phone: [facility] 01-09-2025 15:28-0400 Body weight 69.9 kg Mariela Olson [employer] Work Phone: [facility] 01-09-2025 15:28-0400 Diastolic blood pressure 74 mm[Hg] Mariela Shahram [employer] Work Phone: [facility] 01-09-2025 15:28-0400 Heart rate 62 /min Mariela Shahram [employer] Work Phone: [facility] 01-09-2025 15:28-0400 SaO2% (BldA) [Mass fraction] 97 % Mariela Shahram [employer] Work Phone: [facility] 01-09-2025 15:28-0400 Systolic blood pressure 146 mm[Hg] Mariela Shahram [employer] Work Phone: [facility] 12-05-2024 14:06-0400 Diastolic blood pressure 87 mm[Hg] Mariela Shahram [employer] Work Phone: [facility] 12-05-2024 14:06-0400 Heart rate 62 /min Mariela Shahram [employer] Work Phone: [facility] 12-05-2024 14:06-0400 Respiratory rate 14 /min Mariela Shahram [employer] Work Phone: [facility] 12-05-2024 14:06-0400 SaO2% (BldA) [Mass fraction] 96 % Mariela Shahram [employer] Work Phone: [facility] 12-05-2024 14:06-0400 Systolic blood pressure 120 mm[Hg] Mariela Shahram [employer] Work Phone: [facility] 12-05-2024 08:22-0400 Body height 171.45 cm Mariela Shahram [employer] Work Phone: [facility] 12-05-2024 08:22-0400 Body mass index (BMI) [Ratio] 23.4 kg/m2 Mariela Shahram [employer] Work Phone: [facility] 12-05-2024 08:22-0400 Body temperature 98 [degF] Mariela Shahram [employer] Work Phone: [facility] 12-05-2024 08:22-0400 Body weight 68.94 kg Mariela Shahram [employer] Work Phone: [facility] 12-05-2024 08:22-0400 Diastolic blood pressure 82 mm[Hg] Mariela Shahram [employer] Work Phone: [facility] 12-05-2024 08:22-0400 Heart rate 62 /min Mariela Shahram [employer] Work Phone: [facility] 12-05-2024 08:22-0400 Respiratory rate 13 /min Mariela Shahram [employer] Work Phone: [facility] 12-05-2024 08:22-0400 SaO2% (BldA) [Mass fraction] 100 % Mariela Shahram [employer] Work Phone: [facility] 12-05-2024 08:22-0400 Systolic blood pressure 185 mm[Hg] Mariela Shahram [employer] Work Phone: [facility] 11-28-2024 11:09-0400 Body mass index (BMI) [Ratio] 24 kg/m2 Mariela Shahram [employer] Work Phone: [facility] 11-28-2024 11:09-0400 Body temperature 98.5 [degF] Mariela Shahram [employer] Work Phone: [facility] 11-28-2024 11:09-0400 Body weight 70.76 kg Mariela Shahram [employer] Work Phone: [facility] 11-28-2024 11:09-0400 Diastolic blood pressure 76 mm[Hg] Mariela Sahhram [employer] Work Phone: [facility] 11-28-2024 11:09-0400 Heart rate 74 /min Mariela Shahram [employer] Work Phone: [facility] 11-28-2024 11:09-0400 Respiratory rate 16 /min Mariela Shahram [employer] Work Phone: [facility] 11-28-2024 11:09-0400 SaO2% (BldA) [Mass fraction] 100 % Mariela Shahram [employer] Work Phone: [facility] 11-28-2024 11:09-0400 Systolic blood pressure 152 mm[Hg] Mariela Shahram [employer] Work Phone: [facility] 11-20-2024 13:22-0400 Body temperature 98 [degF] Mariela Shahram [employer] Work Phone: [facility] 11-20-2024 13:22-0400 Diastolic blood pressure 81 mm[Hg] Mariela Shahram [employer] Work Phone: [facility] 11-20-2024 13:22-0400 Heart rate 86 /min Mariela Shahram [employer] Work Phone: [facility] 11-20-2024 13:22-0400 Respiratory rate 18 /min Mariela Shahram [employer] Work Phone: [facility] 11-20-2024 13:22-0400 SaO2% (BldA) [Mass fraction] 95 % Mariela Shahram [employer] Work Phone: [facility] 11-20-2024 13:22-0400 Systolic blood pressure 139 mm[Hg] Mariela Shahram [employer] Work Phone: [facility] 11-19-2024 12:37-0400 Body height 171.45 cm Mariela Shahram [employer] Work Phone: [facility] 11-19-2024 12:37-0400 Body weight 68.94 kg Mariela Shahram [employer] Work Phone: [facility] 11-19-2024 08:57-0400 Body mass index (BMI) [Ratio] 23.4 kg/m2 Mariela Shahram [employer] Work Phone: [facility] 11-18-2024 15:02-0400 Heart rate 67 /min Mariela Olson [employer] Work Phone: [facility] 11-18-2024 15:02-0400 Respiratory rate 17 /min Mariela Olson [employer] Work Phone: [facility] 11-18-2024 15:02-0400 SaO2% (BldA) [Mass fraction] 100 % Mariela Olson [employer] Work Phone: [facility] 11-18-2024 13:14-0400 Diastolic blood pressure 86 mm[Hg] Mariela Olson [employer] Work Phone: [facility] 11-18-2024 13:14-0400 Systolic blood pressure 186 mm[Hg] Mariela Olson [employer] Work Phone: [facility] 11-18-2024 09:56-0400 Body height 170.18 cm Mariela Olson [employer] Work Phone: [facility] 11-18-2024 09:56-0400 Body mass index (BMI) [Ratio] 23.9 kg/m2 Mariela Olson [employer] Work Phone: [facility] 11-18-2024 09:56-0400 Body temperature 97.8 [degF] Mariela Olson [employer] Work Phone: [facility] 11-18-2024 09:56-0400 Body weight 69.39 kg Mariela Olson [employer] Work Phone: [facility] 11-07-2024 15:00-0400 Body temperature 98.1 [degF] Mariela Olson [employer] Work Phone: [facility] 11-07-2024 15:00-0400 Diastolic blood pressure 69 mm[Hg] Mariela Olson [employer] Work Phone: [facility] 11-07-2024 15:00-0400 Heart rate 79 /min Mariela Shahram [employer] Work Phone: [facility] 11-07-2024 15:00-0400 SaO2% (BldA) [Mass fraction] 99 % Mariela Shahram [employer] Work Phone: [facility] 11-07-2024 15:00-0400 Systolic blood pressure 149 mm[Hg] Mariela Shahram [employer] Work Phone: [facility] 11-07-2024 10:48-0400 Diastolic blood pressure 66 mm[Hg] Mariela Shahram [employer] Work Phone: [facility] 11-07-2024 10:48-0400 Heart rate 88 /min Mariela Shahram [employer] Work Phone: [facility] 11-07-2024 10:48-0400 Systolic blood pressure 153 mm[Hg] Mariela Shahram [employer] Work Phone: [facility] 11-07-2024 08:22-0400 Body temperature 98 [degF] Mariela Shahram [employer] Work Phone: [facility] 11-07-2024 08:22-0400 Respiratory rate 16 /min Mariela Shahram [employer] Work Phone: [facility] 11-07-2024 07:11-0400 SaO2% (BldA) [Mass fraction] 98 % Mariela Shahram [employer] Work Phone: [facility] 11-07-2024 03:38-0400 Body height 170.18 cm Mariela Shahram [employer] Work Phone: [facility] 11-07-2024 03:38-0400 Body mass index (BMI) [Ratio] 25.1 kg/m2 Mariela Shahram [employer] Work Phone: [facility] 11-07-2024 03:38-0400 Body weight 72.8 kg Mariela Shahram [employer] Work Phone: [facility] 11-06-2024 01:00-0400 Diastolic blood pressure 71 mm[Hg] Marielabruce Olson [employer] Work Phone: [facility] 11-06-2024 01:00-0400 Heart rate 77 /min Marielabruce Olson [employer] Work Phone: [facility] 11-06-2024 01:00-0400 Respiratory rate 18 /min Marielabruce Olson [employer] Work Phone: [facility] 11-06-2024 01:00-0400 SaO2% (BldA) [Mass fraction] 99 % Mariela Olson [employer] Work Phone: [facility] 11-06-2024 01:00-0400 Systolic blood pressure 169 mm[Hg] Mariela Cifuentesgar [employer] Work Phone: [facility] 11-06-2024 00:36-0400 Body temperature 98.3 [degF] Mariela Shahram [employer] Work Phone: [facility] 11-05-2024 22:21-0400 Body height 170.18 cm Mariela Olson [employer] Work Phone: [facility] 11-05-2024 22:21-0400 Body mass index (BMI) [Ratio] 25.7 kg/m2 Mariela Shahram [employer] Work Phone: [facility] 11-05-2024 22:21-0400 Body weight 74.34 kg Mariela Shahram [employer] Work Phone: [facility] 10-31-2024 11:16-0400 Body mass index (BMI) [Ratio] 25.9 kg/m2 Mariela Shahram [employer] Work Phone: [facility] 10-31-2024 11:16-0400 Body temperature 98.4 [degF] Mariela Shahram [employer] Work Phone: [facility] 10-31-2024 11:16-0400 Body weight 74.89 kg Mariela Shahram [employer] Work Phone: [facility] 10-31-2024 11:16-0400 Diastolic blood pressure 83 mm[Hg] Mariela Shahrma [employer] Work Phone: [facility] 10-31-2024 11:16-0400 Heart rate 71 /min Mariela Shahram [employer] Work Phone: [facility] 10-31-2024 11:16-0400 Respiratory rate 18 /min Mariela Shahram [employer] Work Phone: [facility] 10-31-2024 11:16-0400 SaO2% (BldA) [Mass fraction] 98 % Mariela Shahram [employer] Work Phone: [facility] 10-31-2024 11:16-0400 Systolic blood pressure 175 mm[Hg] Mariela Shahram [employer] Work Phone: [facility] 10-24-2024 20:51-0400 Body temperature 98 [degF] Mariela Shahram [employer] Work Phone: [facility] 10-24-2024 20:51-0400 Diastolic blood pressure 73 mm[Hg] Mariela Shahram [employer] Work Phone: [facility] 10-24-2024 20:51-0400 Heart rate 72 /min Mariela Shahram [employer] Work Phone: [facility] 10-24-2024 20:51-0400 Respiratory rate 18 /min Mariela Shahram [employer] Work Phone: [facility] 10-24-2024 20:51-0400 SaO2% (BldA) [Mass fraction] 98 % Mariela Shahram [employer] Work Phone: [facility] 10-24-2024 20:51-0400 Systolic blood pressure 126 mm[Hg] Mariela Shahram [employer] Work Phone: [facility] 10-24-2024 17:36-0400 Body height 170 cm Mariela Shahram [employer] Work Phone: [facility] 10-24-2024 17:36-0400 Body mass index (BMI) [Ratio] 26.2 kg/m2 Mariela Shahram [employer] Work Phone: [facility] 10-24-2024 17:36-0400 Body weight 75.79 kg Mariela Shahram [employer] Work Phone: [facility] 10-17-2024 14:15-0400 Body mass index (BMI) [Ratio] 26.2 kg/m2 Mariela Shahram [employer] Work Phone: [facility] 10-17-2024 14:15-0400 Body weight 75.74 kg Mariela Shahram [employer] Work Phone: [facility] 10-17-2024 14:15-0400 Diastolic blood pressure 87 mm[Hg] Mariela Shahram [employer] Work Phone: [facility] 10-17-2024 14:15-0400 Heart rate 60 /min Mariela Shahram [employer] Work Phone: [facility] 10-17-2024 14:15-0400 Respiratory rate 16 /min Mariela Shahram [employer] Work Phone: [facility] 10-17-2024 14:15-0400 Systolic blood pressure 148 mm[Hg] Mariela Shahram [employer] Work Phone: [facility] 09-07-2024 12:53-0500 Diastolic blood pressure 71 mm[Hg] Darrel Pringle MD [facility] 09-07-2024 12:53-0500 Systolic blood pressure 159 mm[Hg] Darrel Pringle MD [facility] 08-08-2024 09:55-0500 Body mass index (BMI) [Ratio] 26.9 kg/m2 Mariela Shahram [employer] Work Phone: [facility] 08-08-2024 09:55-0500 Body temperature 98.5 [degF] Mariela Shahram [employer] Work Phone: [facility] 08-08-2024 09:55-0500 Body weight 78.18 kg Mariela Shahram [employer] Work Phone: [facility] 08-08-2024 09:55-0500 Diastolic blood pressure 90 mm[Hg] Mariela Shahram [employer] Work Phone: [facility] 08-08-2024 09:55-0500 Heart rate 81 /min Mariela Shahram [employer] Work Phone: [facility] 08-08-2024 09:55-0500 Respiratory rate 18 /min Mariela Shahram [employer] Work Phone: [facility] 08-08-2024 09:55-0500 SaO2% (BldA) [Mass fraction] 99 % Mariela Shahram [employer] Work Phone: [facility] 08-08-2024 09:55-0500 Systolic blood pressure 196 mm[Hg] Mariela Shahram [employer] Work Phone: [facility] 07-18-2024 09:20-0500 Body mass index (BMI) [Ratio] 26.5 kg/m2 Mariela Shahram [employer] Work Phone: [facility] 07-18-2024 09:20-0500 Body temperature 97.8 [degF] Mariela Shahram [employer] Work Phone: [facility] 07-18-2024 09:20-0500 Body weight 76.91 kg Mariela Shahram [employer] Work Phone: [facility] 07-18-2024 09:20-0500 Diastolic blood pressure 88 mm[Hg] Mariela Shahram [employer] Work Phone: [facility] 07-18-2024 09:20-0500 Heart rate 71 /min Mariela Shahram [employer] Work Phone: [facility] 07-18-2024 09:20-0500 Respiratory rate 16 /min Marielabruce Olson [employer] Work Phone: [facility] 07-18-2024 09:20-0500 SaO2% (BldA) [Mass fraction] 97 % Marielabruce Olson [employer] Work Phone: [facility] 07-18-2024 09:20-0500 Systolic blood pressure 193 mm[Hg] Mariela Shahram [employer] Work Phone: [facility] 07-04-2024 14:18-0500 Body mass index (BMI) [Ratio] 26.4 kg/m2 Mariela Shahram [employer] Work Phone: [facility] 07-04-2024 14:18-0500 Body temperature 98.2 [degF] Mariela Cifuentesgar [employer] Work Phone: [facility] 07-04-2024 14:18-0500 Body weight 76.43 kg Mariela Olson [employer] Work Phone: [facility] 07-04-2024 14:18-0500 Diastolic blood pressure 75 mm[Hg] Mariela Cifuentesgar [employer] Work Phone: [facility] 07-04-2024 14:18-0500 Heart rate 58 /min Mariela Shahram [employer] Work Phone: [facility] 07-04-2024 14:18-0500 Respiratory rate 18 /min Mariela Cifuentesgar [employer] Work Phone: [facility] 07-04-2024 14:18-0500 SaO2% (BldA) [Mass fraction] 100 % Mariela Shahram [employer] Work Phone: [facility] 07-04-2024 14:18-0500 Systolic blood pressure 165 mm[Hg] Mariela Cifuentesgar [employer] Work Phone: [facility] 12-11-2023 08:05-0400 Body temperature 97.9 [degF] Dr. Neville Islas Work Phone: [facility] 12-11-2023 08:05-0400 Diastolic blood pressure 70 mm[Hg] Dr. Neville Islas Work Phone: [facility] 12-11-2023 08:05-0400 Heart rate 59 /min Dr. Neville Islas Work Phone: [facility] 12-11-2023 08:05-0400 Respiratory rate 13 /min Dr. Neville Islas Work Phone: [facility] 12-11-2023 08:05-0400 SaO2% (BldA) [Mass fraction] 95 % Dr. Neville Islas Work Phone: [facility] 12-11-2023 08:05-0400 Systolic blood pressure 151 mm[Hg] Dr. Neville Islas Work Phone: [facility] 12-11-2023 02:39-0400 Body height 172.[address] Neville Islas Work Phone: [facility] 12-11-2023 02:39-0400 Body mass index (BMI) [Ratio] 29 kg/m2 Dr. Neville Islas Work Phone: [facility] 12-11-2023 02:39-0400 Body weight 86.[address] Neville Islas Work Phone: [facility] 08-16-2023 16:10-0500 Body temperature 97.7 [degF] Dr. Neville Islas Work Phone: [facility] 08-16-2023 16:10-0500 Diastolic blood pressure 69 mm[Hg] Dr. Neville Islas Work Phone: [facility] 08-16-2023 16:10-0500 Heart rate 64 /min Dr. Neville Islas Work Phone: [facility] 08-16-2023 16:10-0500 Respiratory rate 18 /min Dr. Neville Islas Work Phone: [facility] 08-16-2023 16:10-0500 SaO2% (BldA) [Mass fraction] 100 % Dr. Neville Islas Work Phone: [facility] 08-16-2023 16:10-0500 Systolic blood pressure 154 mm[Hg] Dr. Neville Islas Work Phone: [facility] 08-16-2023 13:54-0500 Body weight 78.[address] Neville Islas Work Phone: [facility] 08-15-2023 22:26-0500 Body mass index (BMI) [Ratio] 25.5 kg/m2 Dr. Neville Islas Work Phone: [facility] 08-15-2023 21:10-0500 Diastolic blood pressure 80 mm[Hg] [facility] 08-15-2023 21:10-0500 Heart rate 71 /min [facility] 08-15-2023 21:10-0500 Respiratory rate 18 /min [facility] 08-15-2023 21:10-0500 SaO2% (BldA) [Mass fraction] 98 % [facility] 08-15-2023 21:10-0500 Systolic blood pressure 187 mm[Hg] [facility] 08-15-2023 14:37-0500 Body height 172.72 cm [facility] 08-15-2023 14:37-0500 Body mass index (BMI) [Ratio] 27.3 kg/m2 [facility] 08-15-2023 14:37-0500 Body temperature 95.5 [degF] [facility] 08-15-2023 14:37-0500 Body weight 81.6 kg [facility] Encounters Encounter Date Encounter Type Care Provider Facility Start: 02-07-2025 End: 02-07-2025 [facility] Start: 01-18-2025 Encounter for preprocedural cardiovascular examination Adrian [facility] Start: 01-14-2025 End: 01-14-2025 ambulatory Mariela Shahram [facility]ALKER-C Work Phone: [facility] Work Phone: Start: 01-14-2025 End: 01-14-2025 Dr. Adrian Flores MD -Patient Accounts Specialist/Special Procedures Work Phone: Start: 01-14-2025 End: 01-14-2025 ambulatory Adrian Flores Facility:[facility] Start: 01-11-2025 ambulatory Darrel [facility] Start: 01-09-2025 End: 01-09-2025 Dr. Brenda Araujo MD -[facility] Work Phone: Start: 01-09-2025 End: 01-09-2025 ambulatory Mariela Olson TR[facility] WALKER-C Work Phone: [facility] Work Phone: Start: 01-06-2025 ambulatory Adrian Flores Facility:[facility] Start: 01-06-2025 Dr. Adrian Flores MD -[facility] Start: 12-14-2024 End: 12-14-2024 ambulatory Mariela Shahram [employer] WALKER-C Work Phone: [facility] Work Phone: Start: 12-14-2024 End: 12-14-2024 Malinda Webster TRACK WALKER-C -Laboratory Work Phone: Start: 12-14-2024 End: 12-14-2024 ambulatory Malinda Webster TRACK WALKER Facility:[facility] Start: 12-11-2024 Encounter for preprocedural laboratory examination Bredna Araujo [facility] Start: 12-05-2024 End: 12-05-2024 ambulatory Mariela Olson [employer] WALKER-C Work Phone: [facility] Work Phone: Start: 12-05-2024 End: 12-05-[address] Brenda Araujo MD -[facility] Work Phone: Start: 12-05-2024 End: 12-05-2024 Dr. Brenda GarciaCat Scan, [facility] Work Phone: Start: 12-04-2024 End: 12-04-2024 Patient encounter procedure Ari Silvestre [facility] Work Phone: Start: 12-04-2024 End: 12-04-[address] [facility] Work Phone: Start: 12-04-2024 End: 12-05-2024 ambulatory [facility] Facility:[facility] Start: 11-30-2024 End: 11-30-2024 ambulatory Mariela Olson TR[employer] WALKER-C Work Phone: [facility] Work Phone: Start: 11-30-2024 End: 11-30-[address] Brenda GarciaCat Scan, [facility] Work Phone: Start: 11-30-2024 End: 11-30-2024 Dr. Brenda Araujo MD -Cat Scan, [facility] Work Phone: Start: 11-30-2024 End: 11-30-2024 ambulatory [facility] Facility:[facility] Start: 11-28-2024 ambulatory Adrian Flores [facility] Start: 11-28-2024 Non-patient / Non-visit Dr. Norberto DAVIS -[facility] Start: 11-28-2024 End: 11-28-2024 Patient encounter procedure Malinda Webster TRACK WALKER-C -Cardiovascular Services Work Phone: Start: 11-28-2024 End: 11-28-2024 Dr. Adrian Flores MD -[facility] Start: 11-28-2024 End: 11-28-[address] Brenda Araujo MD -[facility] Work Phone: Start: 11-28-2024 End: 11-28-2024 Dr. Brenda Araujo MD -[facility] Work Phone: Start: 11-28-2024 End: 11-28-2024 ambulatory Mariela Olson Facility:[facility] Start: 11-28-2024 End: 11-28-2024 ambulatory Malinda Webster NP Facility:[facility] Start: 11-20-2024 Non-patient / Non-visit Dr. Kalen Jang [facility] Work Phone: Start: 11-20-2024 Dr. Neville singh [facility] Work Phone: Start: 11-19-2024 Non-patient / Non-visit Dr. Kalen Jang [facility] Work Phone: Start: 11-19-2024 Dr. Neville singh DO [facility] Work Phone: Start: 11-19-2024 Non-patient / Non-visit Ari Sage nd DO -[facility] Start: 11-19-2024 Ari Silvestre DO -[facility] Start: 11-18-2024 Non-patient / Non-visit Dr. Marybel Schrader MD -[facility] Work Phone: Start: 11-18-2024 ambulatory Kelvin Schrader Fac ility:[facility] Start: 11-18-2024 End: 11-20-2024 Evaluation and management of inpatient Dr. Kelvin Schrader MD -[facility] Work Phone: Start: 11-18-2024 End: 11-20-2024 Dr. Neville Jang DO [facility] Work Phone: Start: 11-09-2024 ambulatory Darrel Pringle [facility] Start: 11-09-2024 Office outpatient vi sit 25 minutes Darrel Pringle [facility] Start: 11-07-2024 Non-patient / Non-visit Dr. Stevie francis [facility] Work Phone: Start: 11-07-2024 Dr. Stevie MOREJONWo willard [facility] Work Phone: Start: 11-07-2024 End: 11-07-2024 ambulatory Adrian Flores Facility:[facility] Start: 11-07-2024 End: 11-07-2024 Non-patient / Non-visit Dr. Adrian [facility] Work Phone: Start: 11-07-2024 End: 11-07-2024 Dr. Adrian [facility] Work Phone: Start: 11-06-2024 Non-patient / Non-visit Ari Sage nd DO -[facility] Start: 11-06-2024 Ari Silvestre DO -[facility] Start: 11-06-2024 ambulatory [facility] Facility:[facility] Start: 11-06-2024 End: 11-07-2024 Evaluation and management [...] Work Phone: Start: 10-31-2024 End: 10-31-2024 ambulatory [facility] Facility:[facility] Start: 10-24-2024 End: 10-24-2024 Dr. Jerry Hightower DO -Emergency Department Work Phone: Start: 10-24-2024 End: 10-24-2024 Emergency department patient visit Mariela Shahram TR[facility] WALKER-C Work Phone: -Emergency Department Work Phone: Start: 10-24-2024 End: 10-24-[address] [facility] Start: 10-24-[address] Papi Hernandez MD -[facility] Start: 10-24-2024 End: 10-24-2024 Dr. Papi Hernandez MD -[facility] Start: 10-24-2024 End: 10-24-2024 [facility] Work Phone: [facility] Work Phone: Start: 10-24-2024 End: 10-24-2024 ambulatory [facility] Facility:[facility] Start: 10-17-2024 End: 10-17-2024 ambulatory [facility] TR[facility] WALKER-C Work Phone: [facility] Work Phone: Start: 10-17-2024 End: 10-17-2024 Patient encounter procedure Malinda Webster TR[facility] WALKER-C -Laboratory Work Phone: Start: 10-17-2024 End: 10-17-2024 Malinda Webster TR[employer] WALKER-C -Laboratory Work Phone: Start: 10-17-2024 End: 10-17-2024 Patient encounter procedure Malinda Webster TRACK WALKER-C -[facility] Work Phone: Start: 10-17-2024 End: 10-17-2024 Malinda Webster TRACK WALKER-C -[facility] Work Phone: Start: 10-17-2024 End: 10-17-2024 ambulatory [facility] Facility:[facility] Start: 10-17-2024 End: 10-17-2024 ambulatory [facility] Facility:[facility] Start: 09-07-2024 End: 09-07-2024 Darrel Pringle Work Phone: [facility] [place] Start: 09-07-2024 ambulatory Darrel Pringle [facility] Start: 09-05-2024 End: 09-05-2024 Patient encounter procedure Mariela Olson TRACK WALKER-C -Laboratory, [facility] Start: 09-05-2024 End: 09-05-2024 Mariela Olson TRACK WALKER-C -Laboratory, [facility] Start: 09-05-2024 End: 09-05-2024 ambulatory Mariela Shahram Facility:[facility] Start: 08-08-2024 End: 08-08-[address] Papi Hernandez MD -[facility] Work Phone: Start: 08-08-2024 End: 08-08-2024 Dr. Papi Hernandez MD -[facility] Work Phone: Start: 08-08-2024 End: 08-08-2024 ambulatory Mariela Olson Facility:[facility] Start: 07-18-2024 End: 07-18-2024 Patient encounter procedure Selam Craig NP-C -[facility] Work Phone: Start: 07-18-2024 End: 07-18-2024 ambulatory Mariela Olson Facility:[facility] Start: 07-13-2024 End: 07-13-2024 Darrel Pringle Work Phone: [facility] Start: 07-13-2024 ambulatory Darrel Pringle [facility] [place] Start: 07-04-2024 End: 07-04-[address] Papi Hernandez MD -[facility] Work Phone: Start: 07-04-2024 End: 07-04-2024 ambulatory Marielabruce Olson Facility:[facility] Start: 07-04-2024 [facility] Start: 06-25-2024 Encounter for other preprocedural examination Du Thomas [facility] Start: 06-22-2024 ambulatory Du Thomas Facility: [facility] Start: 06-22-2024 End: 06-22-2024 ambulatory Du Thomas Facility:[facility] Start: 06-20-2024 End: 06-20-2024 ambulatory Du Thomas Facility:[facility] Start: 06-18-2024 ambulatory Mariela Shahram [facility] Start: 06-12-2024 End: 06-12-2024 ambulatory Mariela Shahram [facility] Start: 06-08-2024 End: 06-10-2024 Evaluation and management of inpatient Lucy Polanco Facility:[facility] Start: 06-08-2024 ambulatory Lucy Polanco [facility] Start: 06-07-2024 End: 06-07-2024 Emergency department patient visit Jerry Hightower Facility:[facility] Start: 06-07-2024 End: 06-08-2024 ambulatory Mariela Shahram Facility:[facility] Start: 05-31-2024 End: 05-31-2024 ambulatory Mariela Olson [facility] Start: 05-25-2024 End: 05-25-2024 Darrel Pringle Work Phone: [facility] Start: 05-25-2024 ambulatory Darrel [facility]ring[facility] Start: 05-16-2024 End: 05-16-2024 ambulatory Mariela Olson Facility[facility] Start: 05-10-2024 End: 05-10-2024 ambulatory Du Thomas Facility:[facility] Start: 05-07-2024 End: 05-07-2024 ambulatory Mariela Olson Facility:[facility] Start: 04-27-2024 ambulatory Du Thomas Facility: [facility] Start: 04-27-2024 End: 05-01-2024 Evaluation and management of inpatient Du Thomas Facility:[facility] Start: 04-27-2024 ambulatory Du Thomas Facility: [facility] Start: 04-25-2024 Encounter for preprocedural cardiovascular examination Adriankaitlin Flores [facility] Start: 04-25-2024 End: 04-25-2024 ambulatory Mariela Olson Facility[facility] Start: 04-23-2024 Patient encounter status Mariela Olson TRACK WALKER-C Work Phone: [facility] Comment on above: Right hemicolectomy 04/27/2024 Start: 04-20-2024 End: 04-20-2024 ambulatory Mariela Olson Facility[facility] Start: 04-13-2024 ambulatory Ari Silvestre Facility [facility] Start: 04-13-2024 ambulatory Len Staton Facility:[facility] Start: 04-12-2024 End: 04-12-2024 ambulatory Mariela Olson Facility:[facility] Start: 04-12-2024 ambulatory Darrel Carpenter Facili ty:[facility] Start: 04-12-2024 End: 04-15-2024 Evaluation and management of inpatient Darrel Carpenter Facility:[facility] Start: 04-11-2024 End: 04-11-2024 ambulatory Mariela Olson Facility:[facility] Start: 03-30-2024 End: 03-30-2024 Darrel Pringle Work Phone: [facility] Start: 03-30-2024 ambulatory Darrel Pringle [facility] Start: 02-15-2024 End: 02-15-2024 ambulatory Lisandragary Lazcano Facility:[facility] Start: 02-10-2024 End: 02-10-2024 Darrel Pringle Work Phone: [facility] Start: 02-03-2024 End: 02-03-2024 ambulatory Neville Islas Facility:[facility] Start: 12-21-2023 End: 12-21-2023 Darrel Pringle Work Phone: [facility] Start: 12-11-2023 End: 12-11-2023 Emergency department patient visit Dr. Neville Islas Work Phone: [facility]-Emergency Department Work Phone: Start: 10-26-2023 End: 10-26-2023 Darrel Pringle Work Phone: [facility] Start: 08-24-2023 End: 08-24-2023 Darrel Pringle Work Phone: [facility] Start: 08-22-2023 End: 08-22-[address] Neville Islas Work Phone: [facility] Start: 08-16-2023 Non-patient / Non-visit Dr. Kalen Islas Work Phone: [facility] Work Phone: Start: 08-16-2023 Non-patient / Non-visit Dr. Kalen Islas Work Phone: [facility] Start: 08-16-2023 Non-patient / Non-visit Dr. Kalen Islas Work Phone: [facility] Start: 08-15-2023 End: 08-15-2023 Non-patient / Non-visit Dr. Neville Islas Work Phone: [facility] Work Phone: Start: 08-15-2023 End: 08-16-2023 Evaluation and management of inpatient [facility]Progressive Care Unit Work Phone: Start: 08-15-2023 Non-patient / Non-visit Dr. Kalen Islas Work Phone: [facility] Work Phone: Start: 06-29-2023 End: 06-29-2023 Darrel Pringle Work Phone: [facility] Start: 05-11-2023 End: 05-11-2023 Darrel Pringle Work Phone: [facility] Start: 03-30-2023 End: 03-30-2023 Darrel Pringle Work Phone: [facility] Start: 02-23-2023 End: 02-23-2023 Darrel Pringle Work Phone: [facility] Start: 01-25-2023 End: 01-25-2023 ambulatory [facility] Work Phone: Start: 01-25-2023 End: 01-25-2023 Patient encounter procedure [facility] Start: 01-19-2023 End: 01-19-2023 Darrel Pringle Work [...] encounter status Beata Herrera MD Work Phone: [facility] Work Phone: Procedures Date Procedure Procedure Detail Performing Clinician Start: 01-11-2025 Computerized ophthalmic imaging retina Darrel Pringle Start: 01-11-2025 Eylea 1mg Pre-filled Syringe Darrel howard Start: 01-11-2025 Intravitreal njx pharmacologic agt spx Darrel Pringle Start: 01-08-2025 Blood count smear mcrscp w/mnl difrntl wbc count Mariela Olson TR[employer] WALKER-C Work Phone: Start: 01-08-2025 Mean corpuscular hemoglobin concentration determination Mariela Olson [employer] WALKER-C Work Phone: Start: 01-08-2025 Nucleated red blood cell count procedure Mariela Olson [facility] W[facility]ER-C Work Phone: Start: 01-08-2025 Platelet mean volume determination Mariela Olson [employer] WALKER-C Work Phone: Start: 12-14-2024 X-ray of chest, PA and lateral views Mariela Olson [facility] WALKER-C Work Phone: Start: 12-14-2024 Blood count smear mcrscp w/mnl difrntl wbc count Marielabruce Olson [employer] WALKER-C Work Phone: Start: 12-14-2024 Mean corpuscular hemoglobin concentration determination Mariela Olson [employer] [facility]ER-C Work Phone: Start: 12-14-2024 Nucleated red blood cell count procedure Mariela Olson [facility] WALKER-C Work Phone: Start: 12-14-2024 Platelet mean volume determination Mariela Olson [facility] [facility]-C Work Phone: Start: 12-14-2024 Total iron binding capacity measurement Mariela Olson [facility] WALKER-C Work Phone: Start: 12-05-2024 Biopsy/Inj or Needle Placement Mariela burrell TR[employer] WALKER-C Work Phone: Start: 12-05-2024 Mariela Olson [facility] WALKER-C Work Phone: Start: 12-05-2024 Blood count smear mcrscp w/mnl difrntl wbc count Mariela Olson [facility] WALKER-C Work Phone: Start: 12-05-2024 Calculation of international normalized ratio Mariela Olson [employer] WALKER-C Work Phone: Start: 12-05-2024 Mean corpuscular hemoglobin concentration determination Mariela Olson [facility] WALK[facility]-C Work Phone: Start: 12-05-2024 Nucleated red blood cell count procedure Mariela Olson [facility] WALKER-C Work Phone: Start: 12-05-2024 Platelet mean volume determination Mariela Olson [facility] WALKER-C Work Phone: Start: 11-30-2024 CT of thorax with contrast Mariela Olson TR[employer] WALKER-C Work Phone: Start: 11-20-2024 Blood count smear mcrscp w/mnl difrntl wbc count Mariela Olson [facility] WALKER-C Work Phone: Start: 11-20-2024 Mean corpuscular hemoglobin concentration determination Mariela Olson [facility] WALKER-C Work Phone: Start: 11-20-2024 Nucleated red blood cell count procedure Mariela Olson [facility] WALKER-C Work Phone: Start: 11-20-2024 Platelet mean volume determination Mariela Olson [facility] WALKER-C Work Phone: Start: 11-19-2024 Colonoscopy Mariela Olson [facility] WALKER-C Work Phone: Start: 11-19-2024 Estimated creatinine clearance Mariela burrell TR[employer] WALKER-C Work Phone: Start: 11-18-2024 Computed tomography of abdomen and pelvis with intravenous contrast Mariela Olson [facility] WALKER-C Work Phone: Start: 11-09-2024 Computerized ophthalmic imaging retina Darrel Pringle Start: 11-09-2024 Eylea Free Drug Darrel Pringle Start: 11-09-2024 Intravitreal njx pharmacologic agt spx Darrel Pringle Start: 11-07-2024 Blood count smear mcrscp w/mnl difrntl wbc count Mariela Olson [facility] WALKER-C Work Phone: Start: 11-07-2024 Estimated creatinine clearance Mariela burrell [employer] WALKER-C Work Phone: Start: 11-07-2024 Mean corpuscular hemoglobin concentration determination Mariela Olson [facility] WALKER-C Work Phone: Start: 11-07-2024 Nucleated red blood cell count procedure Mariela Olson [facility] WALKER-C Work Phone: Start: 11-07-2024 Platelet mean volume determination Mariela Olson [facility] WALKER-C Work Phone: Start: 11-06-2024 Flexible fiberoptic sigmoidoscopy Mariela Olson [facility] WALKER-C Work Phone: Start: 11-06-2024 Clostridium difficile detection Mariela cruz [facility] WALKER-C Work Phone: Start: 11-06-2024 Lactoferrin measurement Mariela Olson TRACK WALKER- C Work Phone: Start: 11-06-2024 Nucleic acid assay Mariela Cifuentesgar TR[facility] WALKER-C Work Phone: Start: 11-06-2024 Ova OR parasites identification Mariela gamezar [facility] WALKER-C Work Phone: Start: 11-06-2024 Ova&parasites direct smears concentration & id Mariela Olson [facility] WALKER-C Work Phone: Start: 11-06-2024 Iadna-dna/rna gi pthgn multiplex probe tq 6-11 Mariela Cifuentesgar TRACK WALKER-C Work Phone: Start: 11-06-2024 Osmolality measurement, serum Mariela Schwartz ar TR[facility] WALKER-C Work Phone: Start: 11-06-2024 Serum inorganic phosphate measurement Mariela Cifuentesgar TR[employer] WALKER-C Work Phone: Start: 11-06-2024 Total iron binding capacity measurement Mariela Cifuentesgar [facility] WALKER-C Work Phone: Start: 11-05-2024 Computed tomography of abdomen and pelvis with contrast Mariela Olson [facility] WALKER-C Work Phone: Start: 11-05-2024 Assay of lactate Mariela Olson [facility] WALKER-C Work Phone: Start: 11-05-2024 Calculation of international normalized ratio Mariela Cifuentesgar [facility] WALKER-C Work Phone: Start: 11-05-2024 Measurement of occult blood in stool specimen using immunoassay Mariela Olson [facility] WALKER-C Work Phone: Start: 10-24-2024 Urine microscopy: red cells Mariela Olson [facility] WALKER-C Work Phone: Start: 10-24-2024 Urnls dip stick/tablet reagent auto microscopy Mariela Shahram [facility] WALKER-C Work Phone: Start: 10-24-2024 Blood count smear mcrscp w/mnl difrntl wbc count Mariela Olson [facility] WALKER-C Work Phone: Start: 10-24-2024 Estimated creatinine clearance Mariela burrell [employer] WALKER-C Work Phone: Start: 10-24-2024 Mean corpuscular hemoglobin concentration determination Mariela Olson [facility] WALKER-C Work Phone: Start: 10-24-2024 Nucleated red blood cell count procedure Mariela Olson [facility]-C Work Phone: Start: 10-24-2024 Platelet mean volume determination Mariela Olson [facility] [facility]ALKER-C Work Phone: Start: 10-24-2024 Triacylglycerol lipase measurement Mariela Olson [facility]ALKER-C Work Phone: Start: 10-24-2024 Ultrasound of scrotum with Doppler and color flow imaging Mariela Olson [facility] WALKER-C Work Phone: Start: 10-24-2024 Computed tomography of abdomen and pelvis with intravenous contrast Mariela Olson [facility] WALKER-C Work Phone: Start: 10-24-2024 Carcinoembryonic antigen cea Mariela guzman TRACK WALKER-C Work Phone: Comment on above: Nonsmokers <3.9 Smokers <5.6[employer] Electrochemiluminescence Immunoassay(ECLIA)Values obtained with different assay methods or kitscannot be used interchangeably. Results cannot beinterpreted as absolute evidence of the presence orabsence of malignant disease.Performed at: [address] [id number] Director: Jian Paredes PhD, Phone: [phone] Start: 10-24-2024 Estimated creatinine clearance Mariela burrell TR[facility] WALKER-C Work Phone: Start: 10-24-2024 Mean corpuscular hemoglobin concentration determination Mariela Olson [facility]ALKER-C Work Phone: Start: 10-24-2024 Nucleated red blood cell count procedure Mariela Olson [facility] WALKER-C Work Phone: Start: 10-24-2024 Platelet mean volume determination Mariela Olson [facility] WALKER-C Work Phone: Start: 10-24-2024 Procedure Mariela Olson [facility] WALKER-C Work Phone: Start: 10-17-2024 Urine microscopy: red cells Mariela Olson [facility] WALKER-C Work Phone: Start: 10-17-2024 Urnls dip stick/tablet reagent auto microscopy Mariela Olson [facility] WALKER-C Work Phone: Start: 09-07-2024 End: 09-07-2024 Computerized ophthalmic imaging retina Darrel Pringle MD Start: 09-07-2024 End: 09-07-2024 Eylea 1mg Pre-filled Syringe Darrel howard MD Start: 09-07-2024 Eylea 1mg Pre-filled Syringe Darrel howard Start: 09-07-2024 End: 09-07-2024 Eylea Free Drug Darrel Pringle MD Start: 09-07-2024 End: 09-07-2024 Intravitreal njx pharmacologic agt spx Darrel Pringle MD Start: 09-05-2024 Albumin/Globulin ratio Mariela Olson [facility]-C Work Phone: Start: 09-05-2024 Anion gap measurement Mariela Olson [facility]-C Work Phone: Start: 09-05-2024 Blood count smear mcrscp w/mnl difrntl wbc count Mariela Olson [facility] [facility]ER-C Work Phone: Start: 09-05-2024 BUN/Creatinine ratio Mariela Olson [facility]-C Work Phone: Start: 09-05-2024 Mean corpuscular hemoglobin concentration determination Mariela Olson [facility]-C Work Phone: Start: 09-05-2024 Measurement of renal function Mariela vaca [facility]ER-C Work Phone: Comment on above: GFR Calc Start: 09-05-2024 Nucleated red blood cell count procedure Mariela Olson [facility]ALKER-C Work Phone: Start: 09-05-2024 Platelet mean volume determination Mariela Olson [facility]-C Work Phone: Start: 07-18-2024 Carcinoembryonic antigen cea Mariela Ryder r [facility] WALKER-C Work Phone: Comment on above: Nonsmokers <3.9 Smokers <5.6[employer] Electrochemiluminescence Immunoassay(ECLIA)Values obtained with different assay methods or kitscannot be used interchangeably. Results cannot beinterpreted as absolute evidence of the presence orabsence of malignant disease.Performed at: [employer] [facility] [id number] Director: Jian Paredes PhD, Phone: [phone] Start: 07-18-2024 Measurement of renal function Mariela vaca [facility] WALKER-C Work Phone: Comment on above: GFR Calc Start: 07-13-2024 End: 07-13-2024 Computerized ophthalmic imaging retina Darrel Pringle MD Start: 07-13-2024 End: 07-13-2024 Eylea Free Drug Darrel Pringle MD Start: 07-13-2024 Eylea Free Drug Darrel Pringle Start: 07-13-2024 End: 07-13-2024 Intravitreal njx pharmacologic agt spx Darrel Pringle MD Start: 07-04-2024 Calculation of international normalized ratio Mariela Olson [facility]-C Work Phone: Start: 05-29-2024 Positron emission tomography with computed tomography Mariela Olson [facility]-C Work Phone: Start: 05-25-2024 End: 05-25-2024 Computerized ophthalmic imaging retina Darrel Pringle MD Start: 05-25-2024 End: 05-25-2024 [facility] Darrel Pringle MD Start: 05-25-2024 [facility] Darrel Pringle Start: 05-25-2024 End: 05-25-2024 Intravitreal njx pharmacologic agt spx Darrel Pringle MD Start: 05-16-2024 Ferritin measurement Mariela Olson [facility] Work Phone: Start: 05-16-2024 Immature reticulocyte fraction Mariela burrell [facility] Work Phone: Start: 05-16-2024 Total iron binding capacity measurement Mariela Olson [facility] Work Phone: Start: 03-30-2024 End: 03-30-2024 Computerized [...] bypass grafting Hx of CABG Malinda Webster [facility] Comment on above: FUNG in situ mammary [...] 04-01-2025 Influenza vaccination Influenza Vaccine (Season Ended) [facility] Start: 01-14-2025 Patient discharge [facility] Start: 01-09-2025 Patient referral [facility] Work Phone: Start: 12-05-2024 Catheterization of vein [facility] Start: 12-05-2024 Oxygen therapy [facility] Start: 12-05-2024 Patient discharge [facility] Start: 12-05-2024 Vital signs measurements [facility] Start: 12-05-2024 Following clinical pathway protocol [facility] Start: 12-05-2024 [facility] Start: 11-20-2024 Patient discharge [facility] Start: 11-18-2024 Application of intermittent pneumatic compression device [facility] Start: 11-18-2024 Following clinical pathway protocol [facility] Start: 11-18-2024 Ambulation without limitation [facility] Start: 11-18-2024 Assessment of risk of venous thromboembolism [facility] Start: 11-18-2024 Insertion of catheter into peripheral vein [facility] Start: 11-18-2024 Providing care according to standard [facility] Start: 11-18-2024 Referral to gastroenterology service [facility] Start: 11-18-2024 [facility] Start: 11-18-2024 Verification routine [facility] Start: 11-18-2024 Admission procedure [facility] Start: 11-18-2024 Patient referral to dietitian [facility] Start: 11-09-2024 Jared Raymond 8 Weeks/ / MAY/ POSS EYLEA/ PAP [facility] Work Phone: Start: 11-07-2024 Patient discharge [facility] Start: 11-07-2024 Care planning and problem solving actions [facility] Start: 11-06-2024 Ova and Parasites Ova and Parasites [facility] Start: 11-06-2024 Enteric precautions [facility] Start: 11-06-2024 Application of intermittent pneumatic compression device [facility] Start: 11-06-2024 Following clinical pathway protocol [facility] Start: 11-06-2024 Assessment of risk of venous thromboembolism [facility] Start: 11-06-2024 Documentation procedure [facility] Start: 11-06-2024 Insertion of catheter into peripheral vein [facility] Start: 11-06-2024 Measuring intake and output [facility] Start: 11-06-2024 Oxygen therapy [facility] Start: 11-06-2024 Providing care according to standard [facility] Start: 11-06-2024 Provision of activity privileges [facility] Start: 11-06-2024 Referral to gastroenterology service [facility] Start: 11-06-2024 Referral to service [facility] Start: 11-06-2024 [facility] Start: 11-06-2024 Admission procedure [facility] Start: 11-06-2024 Verification routine [facility] Start: 11-06-2024 Hospital admission, emergency, from emergency room, medical nature [facility] Start: 11-06-2024 Patient referral to dietitian [facility] Start: 11-06-2024 [facility] Start: 10-24-2024 [facility] Start: 10-24-2024 [facility] Start: 09-07-2024 Smoking cessation education Tobacco cessation counseling [facility] Start: 08-01-2024 Advance Directive Discussion Advance Directive Discussion [facility] Start: 07-13-2024 Smoking cessation education Tobacco cessation counseling [facility] Start: 07-04-2024 Patient referral [facility] Work Phone: Start: 04-01-2024 Covid-19 Vaccine ( season) Covid-19 Vaccine () [facility] Start: 03-30-2024 Smoking cessation education Tobacco cessation counseling [facility] Start: 02-10-2024 Smoking cessation education Tobacco cessation counseling [facility] Start: 12-21-2023 Smoking cessation education Tobacco cessation counseling [facility] Start: 12-11-2023 [facility] Start: 08-16-2023 Patient discharge [facility] Start: 08-15-2023 Following clinical pathway protocol [facility] Start: 08-15-2023 Notification of physician [facility] Start: 08-15-2023 [facility] Start: 08-15-2023 Admission procedure [facility] Start: 08-15-2023 Hospital admission, emergency, from emergency room, medical nature [facility] Start: 08-15-2023 Patient referral to dietitian [facility] Start: 06-29-2023 Smoking cessation education Tobacco cessation counseling [facility] Start: 05-11-2023 Smoking cessation education Tobacco cessation counseling [facility] Start: 05-05-2023 DIABETES SCREEN DIABETES SCREEN [facility] Start: 05-05-2023 Diabetes Screening Diabetes Screening [facility] Start: 03-30-2023 Smoking cessation education Tobacco cessation counseling [facility] Start: 01-19-2023 Smoking cessation education Tobacco cessation counseling [facility] Start: 12-08-2022 Smoking cessation education Tobacco cessation counseling [facility] Start: 09-29-2022 Smoking cessation education Tobacco cessation counseling [facility] Start: 09-01-2022 Smoking cessation education Tobacco cessation counseling [facility] Start: 04-01-2022 Influenza vaccination INFLUENZA (#1) [facility] Start: 08-01-2021 ADVANCE DIRECTIVE DISCUSSION ADVANCE DIRECTIVE DISCUSSION [facility] Start: 05-05-2021 Hepatitis B surface antibody level LDL CHOLESTEROL [facility] Start: 08-03-2020 ANNUAL PCP TEAM CHRONIC DISEASE VISIT ANNUAL PCP TEAM CHRONIC DISEASE VISIT [facility] Start: 07-20-2020 Adult depression screening assessment DEPRESSION SCREENING [facility] Start: 2019 RSV Vaccine (1 - 1-dose 75+ series) RSV Vaccine (1 - 1-dose 75+ series) [facility] Start: 03-01-2009 Medicare Annual Wellness Visit Medicare Annual Wellness Visit [facility] Start: 1994 Pneumococcal Vaccine: 50+ (1 of 1 - PCV) Pneumococcal Vaccine: 50+ (1 of 1 - PCV) [facility] Start: 1994 SHINGRIX VACCINE (1 of 2) SHINGRIX VACCINE (1 of 2) [facility] Start: 1963 [facility] Start: 1962 Annual PCP Team Chronic Disease Visit Annual PCP Team Chronic Disease Visit [facility] Start: 1962 Anxiety Screening Anxiety Screening [facility] Start: 1962 BP CONTROLLED (<130/80) BP CONTROLLED (<130/80) [facility] Start: 1962 Depression Screening Depression Screening [facility] Start: 1962 HEPATITIS C SCREENING HEPATITIS C SCREENING [facility] Start: 1950 PNEUMOCOCCAL: 65+ (1 - PCV) PNEUMOCOCCAL: 65+ (1 - PCV) [facility] Start: 1944 COVID-19 VACCINE (#1) COVID-19 VACCINE (#1) [facility] Anion gap in Serum o r Plasma [facility] BUN/Creatinine ratio [facility] Calcium [Mass/volume ] in Serum or Plasma [facility] Carbon dioxide, tota l [Moles/volume] in Central venous blood [facility] Carcinoembryonic Ag [Mass/volume] in Serum or Plasma [facility] Carcinoembryonic Ag [Mass/volume] in Serum or Plasma [facility] Carcinoembryonic Ag [Mass/volume] in Serum or Plasma [facility] CBC W Auto Different ial panel - Blood [facility] Comprehensive metabo lic 2000 panel - Serum or Plasma [facility] Creatinine [Mass/vol ume] in Serum or Plasma [facility] CT Abdomen and Pelvi s W contrast IV [facility] Erythrocyte mean corpuscular volume determination [facility] Ferritin [Mass/volum e] in Serum or Plasma [facility] Glucose [Mass/volume ] in Serum or Plasma [facility] Hematocrit [Volume Fraction] of Blood [facility] Hemoglobin [Mass/vol ume] in Blood [facility] Iron and Iron bindin g capacity panel - Serum or Plasma [facility] Leukocytes [#/volume ] in Blood [facility] Magnesium measurement [facility] Mean corpuscular hem oglobin concentration determination [facility] Mean corpuscular hem oglobin determination [facility] Measurement of renal function [facility] Neutrophil count [facility] Neutrophil percent differential count [facility] Ova OR parasites identification [facility] Patient Education [facility] Work Phone: Patient referral [facility] Work Phone: Platelets [#/volume] in Blood [facility] Potassium measurement [facility] Red blood cell count [facility] Red cell distributio n width determination [facility] Serum chloride measurement [facility] Sodium measurement [facility] Urea nitrogen [Mass/ volume] in Serum or Plasma [facility] Immunizations Immunization Date Immunization Notes Care Provider Fa cility 08-03-2019 influenza virus vacc ine, unspecified formulation Papi Hernandez MD Work Phone: [facility] Payers Date Payer Category Payer Medicare [id number] 2024 Self-pay [id number] 2024 Self-pay [id number] 2022 Self-pay 0 [id number] 2009 Medicare MEDICARE [id number] 1944 Unknown [id number] 2.840.1.672870.3.579.2.134 7 1944 Unknown [id number] 2..840.1.292637.3.579.2.134 7 1944 Unknown [id number] 2.840.1.256132.3.579.2.134 7 1944 Unknown [id number] 2.16.840.1.658862.3.579.2.134 7 1944 Unknown [id number] 2.16.840.1.831751.3.579.2.134 7 4 Unknown [id number] 2.16.840.1.555634.3.579.2.134 7 Unknown [id number] 2.16.840.1.569450.3.579.2.462 Unknown [id number] 2.16.840.1.953179.3.579.2.462 Unknown [id number] 2.16.840.1.170904.3.579.2.462 Unknown [id number] 2.16.840.1.414386.3.579.2.462 Unknown [id number] 2.16.840.1.752830.3.579.2.462 Unknown [id number] 2.16.840.1.957453.3.579.2.462 Unknown [id number] 2.16.840.1.577030.3.579.2.462 Unknown [id number] 2.16.840.1.519876.3.579.2.462 Unknown [id number] 2.16.840.1.436980.3.579.2.462 Unknown [id number] 2.16.840.1.967447.3.579.2.462 Unknown [id number] 2.16.840.1.963787.3.579.2.462 Unknown [id number] 2.16.840.1.834040.3.579.2.462 Unknown [id number] 2.16.840.1.672458.3.579.2.462 Unknown [id number] 2.16.840.1.589018.3.579.2.462 Unknown [id number] 2.16.840.1.286883.3.579.2.462 Unknown [id number] 2.16.840.1.610840.3.579.2.462 Unknown [id number] 2.16.840.1.757394.3.579.2.462 Unknown [id number] 2.16.840.1.636825.3.579.2.462 Unknown [id number] 2.16.840.1.125201.3.579.2.462 Unknown [id number] 2.16.840.1.749953.3.579.2.462 Unknown [id number] 2.16.840.1.727050.3.579.2.462 Unknown [id number] 2..840.1.457304.3.579.2.462 Unknown [id number] 2..840.1.216889.3.579.2.462 Unknown [id number] 2.840.1.631841.3.579.2.462 Unknown [id number] 2..840.1.201985.3.579.2.462 Unknown [id number] 2..840.1.791788.3.579.2.462 Unknown [id number] 2..840.1.477799.3.579.2.462 Unknown [id number] 2.16.840.1.909559.3.579.2.462 Unknown [id number] 2.16.840.1.257181.3.579.2.462 Unknown [id number] 2.16.840.1.602786.3.579.2.462 Unknown [id number] 2.16.840.1.621468.3.579.2.462 Unknown [id number] 2.16.840.1.448490.3.579.2.462 Unknown [id number] 2.16.840.1.182152.3.579.2.462 Unknown [id number] 2.16.840.1.273406.3.579.2.462 Unknown [id number] 2.16.840.1.809039.3.579.2.462 Unknown [id number] 2.16840.1.918401.3.579.2.462 Unknown [id number] 2.16.840.1.027113.3.579.2.462 Unknown [id number] 2.840.1.150062.3.579.2.462 Unknown [id number] 2.840.1.334729.3.579.2.462 Unknown [id number] 2.840.1.705170.3.579.2.462 Unknown [id number] 2.840.1.866740.3.579.2.462 Unknown [id number] 2.840.1.205911.3.579.2.462 Unknown [id number] 2.840.1.284055.3.579.2.462 Unknown [id number] 2.840.1.171335.3.579.2.462 Unknown [id number] 2.840.1.279037.3.579.2.462 Unknown [id number] 2.840.1.589994.3.579.2.462 Unknown [id number] 2.840.1.594914.3.579.2.462 Unknown [id number] 2.840.1.293252.3.579.2.462 Unknown [id number] 2.840.1.770533.3.579.2.462 Unknown [id number] 2.840.1.711788.3.579.2.462 Unknown [id number] 2.840.1.219465.3.579.2.462 Unknown [id number] 2.840.1.939634.3.579.2.462 Unknown [id number] 2.16.840.1.490718.3.579.2.462 Unknown [id number] 2.16.840.1.659477.3.579.2.462 Unknown [id number] 2.16.840.1.819534.3.579.2.462 Unknown [id number] 2.16.840.1.688262.3.579.2.462 Unknown [id number] 2.16.840.1.232351.3.579.2.462 Unknown [id number] 2.16.840.1.106448.3.579.2.462 Unknown [id number] 2.16.840.1.524191.3.579.2.462 Unknown [id number] 2.16.840.1.275723.3.579.2.462 Unknown [id number] 2.16.840.1.857660.3.579.2.462 Unknown [id number] 2.16.840.1.202152.3.579.2.462 Unknown [id number] 2.16.840.1.146196.3.579.2.462 Unknown [id number] 2.16.840.1.108761.3.579.2.462 Unknown [id number] 2.16.840.1.040401.3.579.2.462 Unknown [id number] 2.16.840.1.826076.3.579.2.462 Unknown [id number] 2.16.840.1.665029.3.579.2.462 Unknown [id number] 2.16.840.1.300888.3.579.2.462 Unknown [id number] 2.16.840.1.963642.3.579.2.462 Unknown [id number] 2.16.840.1.574814.3.579.2.462 Unknown [id number] 2.16.840.1.101998.3.579.2.462 Unknown [id number] 2.16.840.1.124385.3.579.2.462 Unknown [id number] 2.16.840.1.192692.3.579.2.462 Social History Date Type Detail Facility Start: 08-01-1958 End: 05-05-2020 Tobacco smoking status NHIS Occasional tobacco smoker [facility] End: 08-01-1993 History of tobacco use Cigar Smoker [facility] Start: 05-07-2019 End: 07-06-2020 Cigarettes smoked current (pack per day) - Reported 1 [facility] Start: 05-07-2019 End: 05-05-2020 Tobacco use and exposure Smokeless tobacco non-user [facility] Start: 05-05-2020 Alcohol intake 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 quit cigarettes in 1993 [facility] Start: 1945 Sex Assigned At Not on file [facility] Start: 03-06-2018 End: 09-07-2024 Tobacco smoking status LAIS Unknown if ever smoked [facility] Start: 01-25-2023 None [facility] Start: 10-31-2014 Spouse/ Signif icant Other [facility] Start: 01-25-2023 Cigarettes [facility] Start: 1945 Sex Assigned At Male [facility] Start: 09-07-2024 Alcohol intake Alcohol Use Details [facility] Start: 10-24-2024 End: 01-14-2025 Tobacco smoking status NHIS Ex-smoker (finding) [facility] Start: 10-24-2024 End: 11-20-2024 Sex Male (finding) [facility] Start: 08-01-1958 End: 08-01-1993 History of tobacco use Cigarette Smoker [facility] Start: 05-05-2020 End: 07-06-2020 Tobacco use panel [facility] PHQ2 Score [facility] NEGATED: Highlighted rowStart: 09-07-2024 History of tobacco use Ex-cigarette smoker [facility] Medical Equipment Procedure Code Equipment Code Equipment Origin al Text Equipment Identifier Dates Sigmoidoscopy, flexible [id number] FDA Start: 11-06-2024 Colonoscopy [id number] [id number] FDA Start: 04-13-2024 Colonoscopy [id number] [id number] [id number] FDA Start: 11-19-2024 [place] Thk1.65mm P tfe 4x.5in Cardiovascular Sterile - [id number] Start: 07-19-2019 [facility] FDA Sta rt: 04-27-2024 CLIP,[facility] FDA St art: 04-27-2024 [id number] [id number])21 [id number] FDA Start: 04-27-2024 ()[id number] [id number])14 [id number] FDA Start: 04-27-2024 [facility] FDA Sta rt: 04-27-2024 [facility] FDA St art: 04-27-2024 CLIP,[facility] FDA Sta rt: 04-27-2024 CLIP,[facility] FDA St art: 04-27-2024 CLIP,[facility] FDA Sta rt: 04-27-2024 CLIP,[facility] FDA St art: 04-27-2024 CLIP,[facility] FDA Sta rt: 04-27-2024 CLIP,[facility] FDA St art: 04-27-2024 CLIP,[facility] FDA Sta rt: 04-27-2024 CLIP,[facility] FDA St art: 04-27-2024 CLIP,[facility] FDA Sta rt: 04-27-2024 CLIP,[facility] FDA St art: 04-27-2024 FDA Start: 04-27-2024 FDA Start: 04-27-2024 [facility] FDA Sta rt: 04-27-2024 [facility] FDA St art: 04-27-2024 FDA Start: 04-27-2024 FDA Start: 04-27-2024 FDA Start: 04-27-2024 FDA Start: 04-27-2024 FDA Start: 04-27-2024 FDA Start: 04-27-2024 Goals Date Patient Goal Desired Activity /State Functional Status Date Assessment Result Facility 11-20-2024 Functional status Ambulates [facility] Work Phone: 11-07-2024 Functional status Ambulates;Up ad raghavendra [facility] Work Phone: 08-16-2023 Functional status Ambulates;Bath room Privilege [facility] Work Phone: 08-15-2023 Functional status Tolerates Activity Well [facility] Work Phone: 07-23-2019 Are you deaf, or do you have serious difficulty hearing No 07/23/2019 4:22 PM Isaac Guzman APRN.FLATWORK IRONER No [facility] Work Phone: 07-23-2019 Are you blind, or do you have serious difficulty seeing, even when wearing glasses No 07/23/2019 4:22 PM Isaac Guzman APRN.FLATWORK IRONER No [facility] 07-23-2019 Do you have serious difficulty walking or climbing stairs No 07/23/2019 4:22 PM Isaac Guzman APRN.FLATWORK IRONER No [facility] 07-23-2019 Do you have difficul ty dressing or bathing No 07/23/2019 4:22 PM Isaac Guzman, TASH.FLATWORK IRONER No [facility] 07-23-2019 Because of a physica l, mental, or emotional condition, do you have difficulty doing errands alone such as visiting a physician's office or shopping No 07/23/2019 4:22 PM Isaac Guzman APRN.FLATWORK IRONER No [facility] Mental Status Date Assessment Result Facility 12-05-2024 Cognitive function Voice/Name [facility] Work Phone: 12-05-2024 Cognitive function Awake;Alert;A ppropriate;Fol lows Commands [facility] Work Phone: 11-20-2024 Cognitive function Voice/Name [facility] Work Phone: 11-07-2024 Cognitive function Voice/Name [facility] Work Phone: 08-16-2023 Cognitive function Voice/Name [facility] Work Phone: 08-15-2023 Cognitive function Level Of Cons ciousness Awake;Alert;Appropriate;Fol lows Commands [facility] Work Phone: 07-23-2019 Because of a physica l, mental, or emotional condition, do you have serious difficulty concentrating, remembering, or making decisions No 07/23/2019 4:22 PM Isaac Guzman APRN.FLATWORK IRONER No [facility] Clinical Notes 07-19-2019 to 02-05-2025 Note Date & Type Note Facility 02-05-2025 Note Patient sched for fi nancial counseling and CTA/VC appts. I will mail her [facility] packet and make chart. [facility] 01-13-2025 History and physical note Note Date/Time January 13, 2025 7:57am [facility] Medical Records Department [address] [place] [address] History & Physical Exam 01/06/25 0808 MR#: [id number] Acct: [id number] Name: JARED RAYMOND Rep #:[id number] : 1945 79 From: Adrian Flores MD PCP: MARYAM Guerra Status:PRE [facility] History and Physical Date of [...] Vital Signs: See EMR Intake Visit Reasons: [facility] Cell Tuber Hand Required: No Is patient in pain?: No Allergies No Known Allergies Allergy (Verified 10/17/24 14:22) Medications: See EMR Ejection fraction %: 70 Have you fallen in the past year?: No [facility] Medical History (Updated 10/17/24 @ 14:43 by Malinda Webster TRACK WALKER, [facility]C) Encounter for education Pre-op testing Wears dentures [...] MARYAM Olson; Dr. Adrian Flores MD~ Signed [facility] Work Phone: 1(667) 846-665606-08-[address] [facility]05-17-2025 Radiology Diagnostic study [facility]05-07-2025 Radiology Diagnostic study note [facility] Imaging Services [address] [place], [place] [address] Biopsy/Inj or Needle Placement MR#: [id number] Acct: [id number] Name: JARED RAYMOND Rep #: [id number] : 1945 M 79 From: Esdras Watts MD PCP: MARYAM Guerra Status: REG CLI Study:Biopsy/Inj or Needle Placement Date of Exam: 12/05/24 Exam# [id number] Ordering Dr: Brenda Araujo MD PROCEDURE: BIOPSY/INJ [...] core biopsy. Pathology results pending. Reading Location: [place] [address] CC: TRACK WALKER-C Mariela Olson; Dr. Brenda Araujo MD ~ Director Of Medical Services: Signed [facility]05-04-2025 Radiology Diagnostic study [facility]04-22-2025 Discharge summary Author Neville Jang [facility] Note Date/Time November 20, 2024 1:2 2pm [facility] Medical Records Department [address] [place] [address] Instructions for Home/Discharge Instructions 11/20/24 1241 MR#: [id number] Acct: [id number] Name: JARED RAYMOND Rep #:[id number] : 1945 79 From: Neville Jang DO [...] Selam Craig NP, CHRISTEL-C [Med Staff - [facility] Practice Prof] - See Referral Note (Theoffice will call you to confirm an appointment time) Disposition Disposition (needs filled in before D/C Order can be placed): Home, Self Care 11/20/24 1322<Electronically signed by Neville Jang DO>Neville Jang DO CC: CHRISTEL-C Mariela Olson; Dr. Kelvin Schrader MD ~ Signed [facility] Work Phone: 1(940) 539-225004-22-2025 Consult note [facility] Medical Records Department [address] [place] [address] Counseling Note - Pharmacy 11/20/24 1342 MR#: [id number] Acct: [id number] Name: JARED RAYMOND Rep #:[id number] : 1945 79 From: Kush Daniel PCP: MARYAM Guerra Status:ADM IN Y Location: [facility] [place]047-[place] Pharmacy [place] Med Reconciliation Pharmacy Service has performed discharge [...] Signature (if applicable): Date CC: ~ Signed [facility]04-22-2025 Discharge summary [facility] Medical Records Department [address] [place] [address] Instructions for Home/Discharge Instructions 11/20/24 1241 MR#: [id number] Acct: [id number] Name: JARED RAYMOND Rep #:[id number] : 1945 79 From: Neville Jang DO [...] 28 0RF Referrals / Follow Up: Shahram,Mariela, TRACK WALKER-C [Primary Care Provider] - Selam Craig NP, CHRISTEL-C [Med Staff - [facility] Practice Prof] - See Referral Note (Theoffice will call you to confirm an appointment time) Disposition Disposition (needs filled in before D/C Order can be placed): Home, Self Care 11/20/24 1322Mark Tereletsky DO CC: MARYAM Olson; Dr. Kelvin Schrader MD ~ Signed [facility]04-22-[address] [facility]04-22-2025 Consult note Author Keo Burgos [facility] Note Date/Time November 20, 2024 9:5 5am [facility] Medical Records Department [address] [place] [address] Anesthesia Postop Eval II 11/20/2452 MR#: [id number] Acct: [id number] Name: JARED RAYMOND Rep #:[id number] : 1945 79 From: Keo Burgos MD PCP: MARYAM Guerra Status:ADM IN Y Race: C Location: [facility] MS324 -1 Anesthesia Postop Eval I Sum [...] MD Cosigner Signature: Date CC: ~ Signed [facility] Work Phone: 1(384) 333-291504-22-2025 Consult note [facility] Medical Records Department [address] [place], [place] [address] [address] Anesthesia Postop Eval II 11/20/2452 MR#: [id number] Acct: [id number] Name: JARED RAYMOND Rep #:[id number] : 1945 79 From: Keo Burgos MD PCP: MARYAM Guerra Status:ADM IN Y Race: C Location: [place] [address] Anesthesia Postop Eval I Sum Postop Eval [...] MD Cosigner Signature: Date CC: ~ Signed [facility]04-22-2025 Procedure note [facility] Medical Records Department [address] [place] [address] Colonoscopy Report MR#: [id number] Acct: [id number] Name: JARED RAYMOND Rep #:[id number] : 1945 79 From: Ari Silvestre DO [...] three hemostatic clips were successfully placed. 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 There was no bleeding at the end [...] the colonic anastomosis. Clips were placed. 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 - The examined portion of the ileum was normal. - No specimens collected. Recommendation: - [facility]. - Resume previous diet. - Continue present medications. - Repeat colonoscopy in 1 year to assess disease activity. Procedure Code(s): --- Professional --- 63212, Colonoscopy, flexible; with control of bleeding, any method 35431, 59, Colonoscopy, flexible; with directed submucosal injection(s), any substance CPT copyright 2021 [employer]. All rights reserved. The codes documented in this report are preliminary and upon glue reel operator review may be revised to meet current compliance requirements. Ari Silvestre DO 11/20/2024 7:56:55 AM This report has been signed electronically. Number of Addenda: 0 Note Initiated On: 11/19/2024 1:03 PM 11/20/24 0757 Date _ Ari Silvestre DO Cosigner Signature: Date (if indicated) CC: MARYAM Olson; Ari Silvestre DO ~ Date Dictated: 11/19/24 1303 Date Transcribed: Director Of Medical Services: RF Signed [facility]04-22-2025 Procedure note [facility] Medical Records Department [address] [place] [address] Operative Report - CC Letter MR#: [id number] Acct: [id number] Name: JARED RAYMOND Rep #:[id number] : 1945 79 From: Ari Silvestre DO [...] the colonic anastomosis. Clips were placed. 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 - The examined portion of the ileum [...] ~ Date Dictated: 11/19/24 1303 Date Transcribed: Director Of Medical Services: RF Signed [facility]04-21-2025 Progress note Author Neville Jang [facility] Note Date/Time November 19, 2024 6:2 0pm [facility] Medical Records Department [address] [place] [address] Progress Note - Hospitalist 11/19/246 MR#: [id number] Acct: [id number] Name: JARED RAYMOND Rep #:[id number] : 1945 79 From: Neville Jang DO PCP: MARYAM Guerra Status:ADM IN Location: [facility] YQ246-4 Reason for Visit Reason for Visit: Diagnoses [...] 73.3 H, Lymph % (Auto) 14.2 L, [place] % (Auto) 10.0, Eos % (Auto) 1.9, [...] 35 minutes Charges/Coding Visit Charges Inpatient E&M: 12901 Subs Hosp L2 11/19/24 1820 <Electronically signed by Neville Jang DO> Cosigner Signature (if applicable): CC: ~ Signed [facility] Work Phone: 1(285) 428-438504-21-2025 Progress note [facility] Medical Records Department [address] [place] [address] Progress Note - Hospitalist 11/19/24 181 MR#: [id number] Acct: [id number] Name: JARED RAYMOND Rep #:[id number] : 1945 79 From: Neville Jang DO PCP: MARYAM Guerra Status:ADM IN Location: [place] [address] Reason for Visit Reason for Visit: Diagnoses [...] 73.3 H, Lymph % (Auto) 14.2 L, [place] % (Auto) 10.0, Eos % (Auto) 1.9, [...] 35 minutes Charges/Coding Visit Charges Inpatient E&M: 96560 Subs Hosp L2 11/19/24 1820 Cosigner Signature (if applicable): CC: ~ Signed [facility]04-21-2025 Consult note Author Guerrero Miller [facility] Note Date/Time November 19, 2024 2:0 5pm [facility] Medical Records Department [address] [place] [address] Anesthesia Postop Eval I 11/19/24 1402 MR#: [id number] Acct: [id number] Name: CHRISJARED Kaitlin Rep #:[id number] : 1945 79 From: Guerrero Miller PCP: MARYAM Guerra Status:ADM IN Y Race: C Location: [place] [address] -1 Anesthesia: Postop Eval I Current Vital [...] document: Postop Eval 1 completed: Yes 11/19/24 5079 <Electronically signed by Guerrero Miller > Date _ Guerrero Miller Rossiignbrant Signature: Date CC: ~ Signed [facility] Work Phone: 1(744) 276-934804-21-2025 Consult note Author Ari Friend [facility] Note Date/Time November 19, 2024 12: 58pm [facility] Medical Records Department [address] [place] [address] Consultation - GI 11/19/24 1256 MR#: [id number] Acct: [id number] Name: JARED RAYMOND Rep #:[id number] : 1945 79 From: Ari Silvestre DO PCP: MARYAM Guerra Status:ADM IN [facility] Consult Data Date of Consult: 11/19/24 [...] presents for evaluation. He originally presented to [facility] ED on 04/11/2024 with c/o hematochezia [...] the possible use of ivermectin for treatment. [facility] Medical History Diverticulosis Mediastinal lymphadenopathy Colon cancer [...] 73.3 H, Lymph % (Auto) 14.2 L, [place] % (Auto) 10.0, Eos % (Auto) 1.9, [...] undergo colonoscopy. Charges/Coding Visit Charges Inpatient E&M: 14484 Init Hosp L3 11/19/24 3221 <Electronically signed by Ari Friend DO> Cosigner Signature (if applicable): CC: TRACK WALKER-C Mariela Olson; Dr. Kelvin Schrader MD~ Signed [facility] Work Phone: 1(333) 348-821004-21-2025 Consult note [facility] Medical Records Department [address] [place] [address] Anesthesia Postop Eval I 11/19/24 1402 MR#: [id number] Acct: [id number] Name: JARED RAYMOND Rep #:[id number] : 1945 79 From: Guerrero Miller PCP: MARYAM Guerra Status:ADM IN Y Race: C [facility] -[facility] Anesthesia: Postop Eval I Current Vital [...] Guerrero Vela Signature: Date CC: ~ Signed [facility]04-21-2025 Consult note Author Steven Ann [facility] Note Date/Time November 19, 2024 12: 03pm [facility] Medical Records Department [address] [place] [address] Pre-Anesthesia Evaluation 11/19/24 1202 MR#: [id number] Acct: [id number] Name: JARED RAYMOND Rep #:[id number] : 1945 79 From: Steven Ann MD PCP: Mariela Olson, TRACK WALKER-C Status:ADM IN Y Race: C Location: [place] [address] ASA Classification* ASA Classification ASA Classification: 3 [...] Procedure(s): colonoscopy Anesthesia History Anesthesia History - front end software engineer: Anesthesia History - front end software engineer Hx Hospitalization Yes: 06/09/24 BIOPSY OF LIVER [...] take am of surgery PONV PONV - front end software engineer: PONV - front end software engineer Female HX of Motion Sickness HX of N/V After Surgery Non-Smoker Duration of Surgery greater than 60 minutes Number of Risk Factors PONV Score Height & Weight Height & Weight: Anesthesia: Height & Weight Height 5 ft 7.5 in 11/19/24 08:57 Weight: 68.946 kg 11/19/24 08:57 Body Mass Index (BMI) 23.4 11/19/24 08:57 Respiratory Assessment Respiratory Assessment - front end software engineer: Respiratory Tract Infection Hx - front end software engineer Hx Respiratory Tract Infection No 11/18/24 21:04 STOP Sleep Apnea STOP Sleep Apnea - front end software engineer: STOP Sleep Apnea - front end software engineer Hx Hypertension Yes 11/18/24 15:46 Hx Sleep [...] Tobacco Use History Tobacco Use History - front end software engineer: Tobacco Use History - front end software engineer Tobacco Use Cigarettes 01/25/23 14:01 Smoking Status Former smoker 11/18/24 17:39 Hx Tobacco Use Yes: Cigar 11/18/24 15:46 Years Smoking Packs Smoked per Day Smoking Cessation Date was Yes - quit smoking within 15 11/18/24 15:46 within the last 15 years years Hx Smoking Cessation Date 04/01/23 11/18/24 15:46 Hx Smoking Cessation Yes 11/18/24 15:46 Counseling Hematologic Medial History Hematologic Hx - front end software engineer: Hematologic Medical Hx - intensive care unit nurse Hx of Blood Transfusion Yes 11/18/24 15:46 [...] confused, unrespo /Reproduction History /Reproductive History - front end software engineer: /Reproductive Hx- front end software engineer Hx Now No 11/18/24 21:04 Gestational Age [...] MD Cosigner Signature: Date CC: ~ Signed [facility] Work Phone: 1(890) 830-914104-21-2025 Consult note [facility] Medical Records Department [address] [place] [address] Consultation - GI 11/19/24 1256 MR#: [id number] Acct: [id number] Name: JARED RAYMOND Rep #:[id number] : 1945 79 From: Ari Friend DO PCP: Mariela Olson TRACK WALKERJoseC Status:ADM IN Location: [facility] YW532-5 HPI Consult Data Date of Consult: 11/19/24 [...] presents for evaluation. He originally presented to [facility] ED on 04/11/2024 with c/o hematochezia [...] the possible use of ivermectin for treatment. [facility] Medical History Diverticulosis Mediastinal lymphadenopathy Colon cancer [...] 73.3 H, Lymph % (Auto) 14.2 L, [place] % (Auto) 10.0, Eos % (Auto) 1.9, [...] undergo colonoscopy. Charges/Coding Visit Charges Inpatient E&M: 59126 Init Hosp L3 11/19/24 1258 Cosigner Signature (if applicable): CC: TRACK WALKER-C Mariela Olson; Dr. Kelvin Schrader MD~ Signed [facility]04-21-2025 Consult note [facility] Medical Records Department [address] [place] [address] Pre-Anesthesia Evaluation 11/19/24 1202 MR#: [id number] Acct: [id number] Name: JARED ARYMOND Rep #:[id number] : 1945 79 From: Steven Ann MD PCP: MARYAM Guerra Status:ADM IN Y Race: C Location: [place] MS324 -1 ASA Classification* ASA Classification ASA [...] Procedure(s): colonoscopy Anesthesia History Anesthesia History - front end software engineer: Anesthesia History - front end software engineer Hx Hospitalization Yes: 06/09/24 BIOPSY OF LIVER [...] take am of surgery PONV PONV - front end software engineer: PONV - front end software engineer Female HX of Motion Sickness HX of N/V After Surgery Non-Smoker Duration of Surgery greater than 60 minutes Number of Risk Factors PONV Score Height & Weight Height & Weight: Anesthesia: Height & Weight Height 5 ft 7.5 in 11/19/24 08:57 Weight: 68.946 kg 11/19/24 08:57 Body Mass Index (BMI) 23.4 11/19/24 08:57 Respiratory Assessment Respiratory Assessment - front end software engineer: Respiratory Tract Infection Hx - front end software engineer Hx Respiratory Tract Infection No 11/18/24 21:04 STOP Sleep Apnea STOP Sleep Apnea - front end software engineer: STOP Sleep Apnea - front end software engineer Hx Hypertension Yes 11/18/24 15:46 Hx Sleep [...] Tobacco Use History Tobacco Use History - front end software engineer: Tobacco Use History - front end software engineer Tobacco Use Cigarettes 01/25/23 14:01 Smoking Status Former smoker 11/18/24 17:39 Hx Tobacco Use Yes: Cigar 11/18/24 15:46 Years Smoking Packs Smoked per Day Smoking Cessation Date was Yes - quit smoking within 15 11/18/24 15:46 within the last 15 years years Hx Smoking Cessation Date 04/01/23 11/18/24 15:46 Hx Smoking Cessation Yes 11/18/24 15:46 Counseling Hematologic Medial History Hematologic Hx - front end software engineer: Hematologic Medical Hx - intensive care unit nurse Hx of Blood Transfusion Yes 11/18/24 15:46 [...] confused, unrespo /Reproduction History /Reproductive History - front end software engineer: /Reproductive Hx- front end software engineer Hx Now No 11/18/24 21:04 Gestational Age [...] MD Cosigner Signature: Date CC: ~ Signed [facility]04-20-2025 History and physical note Author Kelvin Schrader [facility] Note Date/Time November 18, 2024 4:0 6pm [facility] Medical Records Department [address] [place] [address] H&P Exam - Hospitalist 11/18/24 1335 MR#: [id number] Acct: [id number] Name: JARED RAYMOND Rep #:[id number] : 1945 79 From: Kelvin rojas MD PCP: MARYAM Guerra Status:ADM IN Location: [facility] JZ059-3 HPI - General General Date of Admission: [...] with the possibility of proceeding with chemotherapy. [facility] Medical History Diverticulosis Mediastinal lymphadenopathy Colon cancer [...] 71.9 H, Lymph % (Auto) 14.4 L, [place] % (Auto) 11.2 H, Eos % (Auto) [...] to the large mesenteric mass. Reading Location: [facility] Assessment & Plan Assessment/Plan (1) GI [...] Multi Select Codes Visit Charges Visit Charges: 10382 Init Hosp L2 Hospitalists' Procedures Procedures: 20375 Advncd Care Plan 30 Min 11/18/24 1606 <Electronically signed by Kelvin Schrader MD> Cosigner Signature (if applicable): CC: MARYAM Olson; Dr. Kelvin Schrader MD~ Signed [facility] Work Phone: 1(177) 511-273804-20-2025 Discharge summary Author Radha Damon [facility] Note Date/Time November 18, 2024 2:5 3pm [facility] Medical Records Department [address] [place] [address] Emergency Department Summary 11/18/24 MR#: [id number] Acct: [id number] Name: JARED RAYMOND Rep #:[id number] : 1945 79 From: Radha [place] PCP: MARYAM Guerra Status:ADM IN Location: [place]3 PX101-6 HPI <ONDINA Govea - Last Filed: 11/18/24 [...] He denies any fevers, chills, or vomiting. [facility] <ONDINA Govea - Last Filed: 11/18/24 14:05> [facility] Medical History Diverticulosis Mediastinal lymphadenopathy Colon cancer [...] <ONDINA Govea - Last Filed: 11/18/24 14:05> [facility] MDM Narrative Medical decision making narrative: Patient [...] 71.9 H Lymph % (Auto) 14.4 L [place] % (Auto) 11.2 H Eos % (Auto) [...] to the large mesenteric mass. Reading Location: [id number] <Dr. Lazaro Sharp MD - Last Filed: 11/18/24 14:53> [facility] Narrative Medical decision making narrative: ulceration [...] 71.9 H Lymph % (Auto) 14.4 L [place] % (Auto) 11.2 H Eos % (Auto) [...] to the large mesenteric mass. Reading Location: [facility] CT of the abdomen pelvis was [...] made aware of patient and admit to [facility]) Procedures <Dr. Lazaro Sharp MD - [...] of hypertension Disposition Disposition: Acute Care Hospital [facility] What to do if you have Problems For any increased pain, shortness of breath, bleeding, nausea or vomiting, chest pain, or any unexpected problems, contact your Primary Care Provider. Call [facility] ([phone]) or report to the closest Emergency Room. Call 911 if necessary. 11/18/24 1405 <Electronically signed by Radha NJ> Cosigner Signature (if applicable): 11/18/24 1453 <Electronically signed by Lazaro Sharp MD> CC: MARYAM Olson ~ Signed [facility] Work Phone: 1(359) 848-169904-20-2025 History and physical note [facility] Medical Records Department [address] [facility] [place] [address] H&P Exam - Hospitalist 11/18/24 1335 MR#: [id number] Acct: [id number] Name: JARED RAYMOND Rep #:[id number] : 1945 79 From: Kelvin rojas MD PCP: Mariela Shahram, TRACK WALKER-C Status:ADM IN Location: [place]3 XT639-7 HPI - General General Date of Admission: [...] with the possibility of proceeding with chemotherapy. [facility] Medical History Diverticulosis Mediastinal lymphadenopathy Colon cancer [...] 71.9 H, Lymph % (Auto) 14.4 L, [place] % (Auto) 11.2 H, Eos % (Auto) [...] to the large mesenteric mass. Reading Location: [facility] Assessment & Plan Assessment/Plan (1) GI [...] Multi Select Codes Visit Charges Visit Charges: 00612 Init Hosp L2 Hospitalists' Procedures Procedures: 76894 Advncd Care Plan 30 Min 11/18/24 1606 Cosigner Signature (if applicable): CC: MARYAM Olson; Dr. Kelvin Schrader MD~ Signed [facility]04-20-2025 Discharge summary [facility] Medical Records Department [address] [place] [address] Emergency Department Summary 11/18/24 MR#: [id number] Acct: [id number] Name: JARED RAYMOND Rep #:[id number] : 1945 79 From: Radha NJ PCP: MARYAM Guerra Status:ADM IN Location: [place] [address]-1 HPI HPI - GI History of Present [...] 71.9 H Lymph % (Auto) 14.4 L [place] % (Auto) 11.2 H Eos % (Auto) [...] to the large mesenteric mass. Reading Location: [facility] Narrative Medical decision making narrative: ulceration [...] 71.9 H Lymph % (Auto) 14.4 L [place] % (Auto) 11.2 H Eos % (Auto) [...] to the large mesenteric mass. Reading Location: [facility] CT of the abdomen pelvis was [...] made aware of patient and admit to [facility]) Procedures Other Procedures Procedure(s): Anoscopy was [...] of hypertension Disposition Disposition: Acute Care Hospital [facility] What to do if you have Problems For any increased pain, shortness of breath, bleeding, nausea or vomiting, chest pain, or any unexpected problems, contact your Primary Care Provider. Call [facility] ([phone]) or report to the closest Emergency Room. Call 911 if necessary. 11/18/24 1405 Cosigner Signature (if applicable): 11/18/24 9988 CC: MARYAM Olson ~ Signed [facility]04-20-2025 Discharge summary Author Radha Damon [facility] Note Date/Time November 18, 2024 2:5 3pm [facility] Medical Records Department [address] [place] [address] Emergency Department Summary 11/18/24 MR#: [id number] Acct: [id number] Name: JARED RAYMOND Rep #:[id number] : 1945 79 From: Radha [place] PCP: MARYAM Guerra Status:ADM IN [facility] <ONDINA Govea - Last Filed: 11/18/24 [...] <ONDINA Govea - Last Filed: 11/18/24 14:05> [facility] Medical History Diverticulosis Mediastinal lymphadenopathy Colon cancer [...] <ONDINA Govea - Last Filed: 11/18/24 14:05> [facility] MDM Narrative Medical decision making narrative: Patient [...] 71.9 H Lymph % (Auto) 14.4 L [place] % (Auto) 11.2 H Eos % (Auto) [...] to the large mesenteric mass. Reading Location: [id number] <Dr. Lazaro Sharp MD - Last Filed: 11/18/24 14:53> [facility] MDM Narrative Medical decision making narrative: ulceration [...] 71.9 H Lymph % (Auto) 14.4 L [place] % (Auto) 11.2 H Eos % (Auto) [...] to the large mesenteric mass. Reading Location: [facility] CT of the abdomen pelvis was [...] made aware of patient and admit to [facility]) Procedures <Dr. Lazaro Sharp MD - [...] of hypertension Disposition Disposition: Acute Care Hospital [facility] What to do if you have Problems For any increased pain, shortness of breath, bleeding, nausea or vomiting, chest pain, or any unexpected problems, contact your Primary Care Provider. Call [facility] ([phone]) or report to the closest Emergency Room. Call 911 if necessary. 11/18/24 1405 <Electronically signed by Radha NJ> Cosigner Signature (if applicable): 11/18/24 1453 <Electronically signed by Lazaro Sharp MD> CC: MARYAM Olson ~ Signed [facility] Work Phone: 1(863) 581-604604-20-2025 Radiology Diagnostic study note [facility] Imaging Services [address] [place], [place] [address] Abdomen/Pelvis W IV Cont ONLY MR#: [id number] Acct: [id number] Name: JARED RAYMOND Rep #: [id number] : 1945 M 79 From: Vanessa Rosado MD PCP: Mariela Olson NP-C Status: REG ER Study:Abdomen/Pelvis W IV Cont ONLY Date of E xam: 11/18/24 Exam# [id number] Ordering Dr: Radha Sharp MD PROCEDURE: ABDOMEN/PELVIS [...] to the large mesenteric mass. Reading Location: [facility] CC: MARYAM Olson; Dr. Lazaro Sharp MD ~ Director Of Medical Services: Signed [facility]04-09-2025 Discharge summary [facility] Medical Records Department [address] [place] [address] Discharge Summary 11/07/24 1655 MR#: [id number] Acct: [id number] Name: JARED RAYMOND Rep #:[id number] : 1945 79 From: Stevie Harrington DO PCP: MARYAM Guerra Status:ADM IN Location: [place] [address] Providers Date of Admission: 11/06/24 Primary Care Physician: MARYAM Guerra Consultations 11/06/24 03:28 Consult: Gastroenterology Routine Consulting Provider: [facility] Reason for Consult: LGIB with BRBPR; [...] 70.4 H, Lymph % (Auto) 14.8 L, [place] % (Auto) 12.5 H, Eos % (Auto) [...] Self Care Charges/Coding Visit Charges Inpatient E&M: 90007 Disch Hosp >30min 11/07/24 1707 Cosigner Signature (if applicable): CC: MARYAM Olson; Dr. Stevie Harrington DO~ Signed [facility]04-09-20[facility] Progress note Author Stevie Harrington [facility] Note Date/Time November 07, 2024 12:2 7pm [facility] Medical Records Department [address] [place] [address] Progress Note - Hospitalist 11/07/24 0727 MR#: [id number] Acct: [id number] Name: JARED RAYMOND Rep #:[id number] : 1945 79 From: Stevie Harrington DO PCP: MARYAM Guerra Status:ADM IN Location: [place] [address] Reason for Visit Reason for Visit: Diagnoses [...] 78.1 H, Lymph % (Auto) 9.1 L, [place] % (Auto) 11.9 H, Eos % (Auto) [...] 70.4 H, Lymph % (Auto) 14.8 L, [place] % (Auto) 12.5 H, Eos % (Auto) [...] prophylaxis: SCDs. Charges/Coding Visit Charges Inpatient E&M: 59781 Subs Hosp L2 11/07/24 7690 <Electronically signed by Stevie Harrington DO> Cosigner Signature (if applicable): CC: ~ Signed [facility] Work Phone: 1(994) 492-729404-09-2025 Progress note [facility] Medical Records Department [address] [place] [address] Progress Note - Hospitalist 11/07/24726 MR#: [id number] Acct: [id number] Name: JARED RAYMOND Rep #:[id number] : 1945 79 From: Stevie Harrington DO PCP: Mariela Olson TRACK WALKER-C Status:ADM IN Location: [place] [address] Reason for Visit Reason for Visit: Diagnoses [...] 78.1 H, Lymph % (Auto) 9.1 L, [place] % (Auto) 11.9 H, Eos % (Auto) [...] 70.4 H, Lymph % (Auto) 14.8 L, [place] % (Auto) 12.5 H, Eos % (Auto) [...] prophylaxis: SCDs. Charges/Coding Visit Charges Inpatient E&M: 40904 [facility] Hosp L2 11/07/24 1227 Cosigner Signature (if applicable): CC: ~ Signed [facility]04-08-2025 Consult note Author Keo Burgos [facility] Note Date/Time November 06, 2024 8:40 pm [facility] Medical Records Department [address] [place] [address] Anesthesia Postop Eval II 11/06/242038 MR#: [id number] Acct: [id number] Name: JARED RAYMOND Rep #:[id number] : 1945 79 From: Keo Burgos MD PCP: MARYAM Guerra Status:ADM IN Y Race: C Location: [place] [address] 3-1 Anesthesia Postop Eval I Sum Postop [...] MD Cosigner Signature: Date CC: ~ Signed [facility] Work Phone: 1(103) 483-446004-08-2025 Consult note Author Keo [facility] Note Date/Time November 06, 2024 8:00 pm [facility] Medical Records Department [address] [place] [address] Anesthesia Postop Eval I 11/06/241948 MR#: [id number] Acct: [id number] Name: JARED RAYMOND Rep #:[id number] : 1945 79 From: Keo Burgos MD PCP: MARYAM Guerra Status:ADM IN Y Race: C Location: [place] [address] Anesthesia: Postop Eval I Current Vital Signs [...] MD Cosigner Signature: Date CC: ~ Signed [facility] Work Phone: 1(528) 671-628304-08-2025 Consult note Author Keo [facility] Note Date/Time November 06, 2024 7:07 pm [facility] Medical Records Department [address] [place] [address] Pre-Anesthesia Evaluation 11/06/24 1859 MR#: [id number] Acct: [id number] Name: JARED RAYMOND Rep #:[id number] : 1945 79 From: Keo Burgos MD PCP: MARYAM Guerra Status:ADM IN Y Race: C Location: [place] [address] 3-1 ASA Classification* ASA Classification ASA Classification: [...] Flexible sigmoidoscopy Anesthesia History Anesthesia History - front end software engineer: Anesthesia History - front end software engineer Hx Hospitalization Yes: 06/09/24 BIOPSY OF LIVER [...] sips of water?: Yes PONV PONV - front end software engineer: PONV - front end software engineer Female HX of Motion Sickness HX of N/V After Surgery Non-Smoker Duration of Surgery greater than 60 minutes Number of Risk Factors PONV Score Height & Weight Height & Weight: Anesthesia: Height & Weight Height 5 ft 7 in 11/06/24 09:29 Weight: 72 kg 11/06/24 09:29 Body Mass Index (BMI) 24.8 11/06/24 05:23 Respiratory Assessment Respiratory Assessment - front end software engineer: Respiratory Tract Infection Hx - front end software engineer Hx Respiratory Tract Infection Yes: Patient is recovering 06/22/24 12:11 from a cold/sinus congestion STOP Sleep Apnea STOP Sleep Apnea - front end software engineer: STOP Sleep Apnea - front end software engineer Hx Hypertension Yes 11/06/24 13:19 Hx Sleep [...] Tobacco Use History Tobacco Use History - front end software engineer: Tobacco Use History - front end software engineer Tobacco Use Cigarettes 01/25/23 14:01 Smoking Status Former smoker 11/06/24 13:51 Hx Tobacco Use Yes: Cigar 11/06/24 03:38 Years Smoking Packs Smoked per Day Smoking Cessation Date was Yes - quit smoking within 15 11/06/24 03:38 within the last 15 years years Hx Smoking Cessation Date 04/01/23 11/06/24 03:38 Hx Smoking Cessation Yes 11/06/24 03:38 Counseling Hematologic Medial History Hematologic Hx - front end software engineer: Hematologic Medical Hx - intensive care unit nurse Hx of Blood Transfusion Yes 11/06/24 03:38 [...] confused, unrespo /Reproduction History /Reproductive History - front end software engineer: /Reproductive Hx- front end software engineer Hx Now Gestational Age (in weeks): EDC: [...] MD Cosigner Signature: Date CC: ~ Signed [facility] Work Phone: 1(172) 737-373504-08-2025 Consult note Author Ari Friend [facility] Note Date/Time November 06, 2024 6:59 pm [facility] Medical Records Department [address] [place] [address] Consultation - GI 11/06/24 1854 MR#: [id number] Acct: [id number] Name: JARED RAYMOND Rep #:[id number] : 1945 79 From: Ari Silvestre DO PCP: MARYAM Guerra Status:ADM IN Location: [place] [address] HPI Consult Data Date of Consult: 11/06/24 [...] presents for evaluation. He originally presented to [facility] ED on 04/11/2024 with c/o hematochezia [...] positive, MSI stable. Pathologic staging pT4 pN2b. [facility] Medical History Encounter for education Pre-op testing [...] % (Auto) Cancelled, Lymph % (Auto) Cancelled, [place] % (Auto) Cancelled, Eos % (Auto) Cancelled, [...] Drop Cells Cancelled, Ovalocytes Cancelled, Stomatocytes Cancelled, [place] Bodies Cancelled, Tani Cells Cancelled, Bite Cells [...] 76.8 H, Lymph % (Auto) 12.9 L, [place] % (Auto) 8.9, Eos % (Auto) 0.6, [...] 74.5 H, Lymph % (Auto) 13.7 L, [place] % (Auto) 9.8, Eos % (Auto) 1.4, [...] RDW Std Deviation 39.8, RDW Coeff of [place] 12.3, Plt Count 290, MPV 9.1, Immature Gran % (Auto) 0.300, Neut % (Auto) 78.1 H, Lymph % (Auto) 9.1 L, [place] % (Auto) 11.9 H, Eos % (Auto) [...] stable findings as described above. Reading Location[facility] Assessment & Plan Assessment/Plan (1) GI (gastrointestinal [...] flexible sigmoidoscopy. Charges/Coding Visit Charges Inpatient E&M: 10658 Init Hosp L3 11/06/24 185 <Electronically signed by Ari Silvestre DO> Cosigner Signature (if applicable): CC: MARYAM Olson~ Signed [facility] Work Phone: 1(389) 280-751604-08-2025 Consult note [facility] Medical Records Department [address] [place] [address] Anesthesia Postop Eval II 11/06/242038 MR#: [id number] Acct: [id number] Name: JARED RAYMOND Rep #:[id number] : 1945 79 From: Keo Burgos MD PCP: MARYAM Guerra Status:ADM IN Y Race: C Location: [place] [address] 3-1 Anesthesia Postop Eval I Sum Postop [...] MD Cosigner Signature: Date CC: ~ Signed [facility]04-08-2025 Consult note [facility] Medical Records Department [address] [facility] [address] Anesthesia Postop Eval I 11/06/241948 MR#: [id number] Acct: [id number] Name: JARED RAYMOND Rep #:[id number] : 1945 79 From: Keo Burgos MD PCP: MARYAM Guerra Status:ADM IN Y Race: C Location: [address] Anesthesia: Postop Eval I Current Vital [...] Keo Vela Signature: Date CC: ~ Signed [facility]04-08-2025 Procedure note [facility] Medical Records Department [address] [place] [address] Colonoscopy Report MR#: [id number] Acct: [id number] Name: JARED RAYMOND Rep #:[id number] : 1945 79 From: Ari Silvestre DO [...] digital rectal examinations were normal. Hematin (altered blood/lgowlz-mcmnuh-cbrc material) was found in the entire colon. There was evidence of a prior end-to-side ileo-colonic anastomosis in the ascending colon. This was patent and was characterized by ulceration and an intact staple line. The anastomosis was traversed. To stop active bleeding, one hemostatic clip was successfully placed. 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 There was no bleeding at the end [...] was poor. Procedure Code(s): --- Professional --- 99901, Colonoscopy, flexible; with control of bleeding, any method CPT copyright 2021 [employer]. All rights reserved. The codes documented in this report are preliminary and upon glue reel operator review may be revised to meet current compliance requirements. Ari Silvestre DO 11/06/2024 7:48:14 PM This report has been signed electronically. Number of Addenda: 0 Note Initiated On: 11/06/2024 6:51 PM 11/06/241947 Date _ Ari Nirmala Phelpsigner Signature: Date (if indicated) CC: TRACK WALKER-C Mariela Olson; Ari Nirmala, ~ Date Dictated: 11/06/241850 Date Transcribed: Director Of Medical Services: RF Signed [facility]04-08-2025 Consult note [facility] Medical Records Department [address] [place] [address] Pre-Anesthesia Evaluation 11/06/241858 MR#: [id number] Acct: [id number] Name: JARED RAYMOND Rep #:[id number] : 1945 79 From: Keo Burgos MD PCP: MARYAM Guerra Status:ADM IN Y Race: C Location: [place] [address] 3-1 ASA Classification* ASA Classification ASA Classification: [...] Flexible sigmoidoscopy Anesthesia History Anesthesia History - front end software engineer: Anesthesia History - front end software engineer Hx Hospitalization Yes: 06/09/24 BIOPSY OF LIVER [...] sips of water?: Yes PONV PONV - front end software engineer: PONV - front end software engineer Female HX of Motion Sickness HX of N/V After Surgery Non-Smoker Duration of Surgery greater than 60 minutes Number of Risk Factors PONV Score Height & Weight Height & Weight: Anesthesia: Height & Weight Height 5 ft 7 in 11/06/24 09:29 Weight: 72 kg 11/06/24 09:29 Body Mass Index (BMI) 24.8 11/06/24 05:23 Respiratory Assessment Respiratory Assessment - front end software engineer: Respiratory Tract Infection Hx - front end software engineer Hx Respiratory Tract Infection Yes: Patient is recovering 06/22/24 12:11 from a cold/sinus congestion STOP Sleep Apnea STOP Sleep Apnea - front end software engineer: STOP Sleep Apnea - front end software engineer Hx Hypertension Yes 11/06/24 13:19 Hx Sleep [...] Tobacco Use History Tobacco Use History - front end software engineer: Tobacco Use History - front end software engineer Tobacco Use Cigarettes 01/25/23 14:01 Smoking Status Former smoker 11/06/24 13:51 Hx Tobacco Use Yes: Cigar 11/06/24 03:38 Years Smoking Packs Smoked per Day Smoking Cessation Date was Yes - quit smoking within 15 11/06/24 03:38 within the last 15 years years Hx Smoking Cessation Date 04/01/23 11/06/24 03:38 Hx Smoking Cessation Yes 11/06/24 03:38 Counseling Hematologic Medial History Hematologic Hx - front end software engineer: Hematologic Medical Hx - intensive care unit nurse Hx of Blood Transfusion Yes 11/06/24 03:38 [...] confused, unrespo /Reproduction History /Reproductive History - front end software engineer: /Reproductive Hx- front end software engineer Hx Now Gestational Age (in weeks): EDC: [...] MD Cosigner Signature: Date CC: ~ Signed [facility]04-08-2025 Consult note [facility] Medical Records Department [address] [place] [address] Consultation - GI 11/06/24 1854 MR#: [id number] Acct: [id number] Name: JARED RAYMOND Rep #:[id number] : 1945 79 From: Ari Friend DO PCP: MARYAM Guerra Status:ADM IN Location: [place] [address] HPI Consult Data Date of Consult: 11/06/24 [...] presents for evaluation. He originally presented to [facility] ED on 04/11/2024 with c/o hematochezia [...] positive, MSI stable. Pathologic staging pT4 pN2b. [facility] Medical History Encounter for education Pre-op testing [...] % (Auto) Cancelled, Lymph % (Auto) Cancelled, [place] % (Auto) Cancelled, Eos % (Auto) Cancelled, [...] Drop Cells Cancelled, Ovalocytes Cancelled, Stomatocytes Cancelled, [place] Bodies Cancelled, [place] Cells Cancelled, Bite Cells Cancelled, Crenated Cell [...] 76.8 H, Lymph % (Auto) 12.9 L, [place] % (Auto) 8.9, Eos % (Auto) 0.6, [...] 74.5 H, Lymph % (Auto) 13.7 L, [place] % (Auto) 9.8, Eos % (Auto) 1.4, [...] 78.1 H, Lymph % (Auto) 9.1 L, [place] % (Auto) 11.9 H, Eos % (Auto) [...] stable findings as described above. Reading [facility] Assessment & Plan Assessment/Plan (1) GI (gastrointestinal [...] s igmoidoscopy. Charges/Coding Visit Charges Inpatient E&M: 91734 Init Hosp L3 11/06/24 6008 Cosigner Signature (if applicable): CC: TRACK WALKERCatherine Olson~ Signed [facility]04-08-2025 Progress note Author Stevie Harrington [facility] Note Date/Time November 06, 2024 2:48 pm [facility] Medical Records Department [address] [place] [address] Progress Note - Hospitalist 11/06/24726 MR#: [id number] Acct: [id number] Name: CHRISJARED Rodrigues Rep #:[id number] : 1945 79 From: Stevie Harrington DO PCP: MARYAM Guerra Status:ADM IN Location: [place] [address] Reason for Visit Reason for Visit: Diagnoses [...] % (Auto) Cancelled, Lymph % (Auto) Cancelled, [place] % (Auto) Cancelled, Eos % (Auto) Cancelled, [...] Drop Cells Cancelled, Ovalocytes Cancelled, Stomatocytes Cancelled, [place] Bodies Cancelled, [place] Cells Cancelled, Bite Cells Cancelled, Crenated Cell [...] 76.8 H, Lymph % (Auto) 12.9 L, [place] % (Auto) 8.9, Eos % (Auto) 0.6, [...] 74.5 H, Lymph % (Auto) 13.7 L, [place] % (Auto) 9.8, Eos % (Auto) 1.4, [...] stable findings as described above. Reading Location: [facility] Physical Exam Const alert and no apparent [...] at bedside. Charges/Coding Visit Charges Inpatient E&M: 62119 Subs Hosp L2 11/06/24 1448 <Electronically signed by Stevie Harrington DO> Cosigner Signature (if applicable): CC: ~ Signed [facility] Work Phone: 1(706) 703-353004-08-2025 Progress note [facility] Medical Records Department [address] [facility] [place] [address] Progress Note - Hospitalist 11/06/24726 MR#: [id number] Acct: [id number] Name: JARED RAYMOND Rep #:[id number] : 1945 79 From: Stevie Harrington DO PCP: MARYAM Guerra Status:ADM IN Location: [place] [address] Reason for Visit Reason for Visit: Diagnoses [...] % (Auto) Cancelled, Lymph % (Auto) Cancelled, [place] % (Auto) Cancelled, Eos % (Auto) Cancelled, [...] Drop Cells Cancelled, Ovalocytes Cancelled, Stomatocytes Cancelled, [place] Bodies Cancelled, Tani Cells Cancelled, Bite Cells [...] 76.8 H, Lymph % (Auto) 12.9 L, [place] % (Auto) 8.9, Eos % (Auto) 0.6, [...] 74.5 H, Lymph % (Auto) 13.7 L, [place] % (Auto) 9.8, Eos % (Auto) 1.4, [...] stable findings as described above. Reading Location: [facility] Physical Exam Const alert and no apparent [...] at bedside. Charges/Coding Visit Charges Inpatient E&M: 73414 Subs Hosp L2 11/06/24 4659 Cosigner Signature (if applicable): CC: ~ Signed [facility]04-08-2025 History and physical note Author Darrel Sanders [facility] Note Date/Time November 06, 2024 6:56 am [facility] Medical Records Department [address] [place] [address] H&P Exam - Hospitalist 11/06/24 0145 MR#: [id number] Acct: [id number] Name: JARED RAYMOND Rep #:[id number] : 1945 79 From: Darrel Qrueshi DO PCP: MARYAM Guerra Status:ADM IN Location: [place] [address] 1 HPI - General General Date of [...] of syncopal episodes who now returns to [facility] ER complaining of watery diarrhea and [...] is expected to extend beyond 2 midnights. [facility] Medical History (Updated 11/06/24 @ 06:26 by [...] % (Auto) Cancelled, Lymph % (Auto) Cancelled, [place] % (Auto) Cancelled, Eos % (Auto) Cancelled, [...] Drop Cells Cancelled, Ovalocytes Cancelled, Stomatocytes Cancelled, [place] Bodies Cancelled, [place] Cells Cancelled, Bite Cells Cancelled, Crenated Cell [...] 76.8 H, Lymph % (Auto) 12.9 L, [place] % (Auto) 8.9, Eos % (Auto) 0.6, [...] 75 minutes. Charges/Coding Visit Charges Inpatient E&M: 29291 Init Hosp L3 11/06/24 0656 <Electronically signed by Darrel Carpenter DO> Cosigner Signature (if applicable): CC: MARYAM Olson; Dr. Darrel Carpenter DO~ Signed [facility] Work Phone: 1(110) 719-140204-08-2025 Discharge summary Author Harrison Linares [facility] Note Date/Time November 06, 2024 5:46 am [facility] Medical Records Department [address] [place] [address] Emergency Department Summary 11/06/24 MR#: [id number] Acct: [id number] Name: JARED RAYMOND Rep #:[id number] : 1945 79 From: Harrison Linares DO PCP: MARYAM Guerra Status:ADM IN Location: [address] History of Present Illness Chief Complaint: [...] blood per rectum he presents for evaluation. [facility] Medical History (Updated 11/06/24 @ 05:46 [...] I did discuss the case with his financial administration officer Dr. Silvestre. He recommends that with his [...] H Lymph % (Auto) Cancelled 12.9 L [place] % (Auto) Cancelled 8.9 Eos % (Auto) [...] Drop Cells Cancelled Ovalocytes Cancelled Stomatocytes Cancelled [place] Bodies Cancelled Tani Cells Cancelled Bite Cells [...] stable findings as described above. Reading Location[facility] Management Discussion w/another healthcare provider: Hospitalist and Warehouse Delivery Driver Discharge Plan Dx/Rx/DC Orders Clinical Impression: GI (gastrointestinal bleed), Benign essential hypertension, Colon cancer, Hyponatremia, Diverticulosis Disposition Disposition: Acute Care Hospital [facility] Discharge Date/Time: 11/06/24 03:21 What to do if you have Problems For any increased pain, shortness of breath, bleeding, nausea or vomiting, chestpain, or any unexpected problems, contact your Primary Care Provider. Call [facility] ([phone]) or report to the closest Emergency Room. Call 911 if necessary. 11/06/24 0546 <Electronically signed by Harrison Linares DO> Cosigner Signature (if applicable): CC: TRACK WALKER-C Mariela Olson ~ Signed [facility] Work Phone: 1(911) 371-547704-08-2025 History and physical note [facility] Medical Records Department [address] [place] [address] H&P Exam - Hospitalist 11/06/24 0145 MR#: [id number] Acct: [id number] Name: JARED RAYMOND Rep #:[id number] : 1945 79 From: Darrel Qureshi DO PCP: MARYAM Guerra Status:ADM IN Location: [place] [id number]- 1 HPI - General General Date of [...] of syncopal episodes who now returns to [facility] ER complaining of watery diarrhea and [...] is expected to extend beyond 2 midnights. [facility] Medical History (Updated 11/06/24 @ 06:26 by [...] % (Auto) Cancelled, Lymph % (Auto) Cancelled, [place] % (Auto) Cancelled, Eos % (Auto) Cancelled, [...] Drop Cells Cancelled, Ovalocytes Cancelled, Stomatocytes Cancelled, [place] Bodies Cancelled, Tani Cells Cancelled, Bite Cells [...] 76.8 H, Lymph % (Auto) 12.9 L, [place] % (Auto) 8.9, Eos % (Auto) 0.6, [...] 75 minutes. Charges/Coding Visit Charges Inpatient E&M: 74277 Init Hosp 11/06/24 0656 Cosigner Signature (if applicable): CC: MARYAM Olson; Dr. Darrel Carpenter, DO~ Signed [facility]04-08-2025 Discharge summary [facility] Medical Records Department [address] [place] [address] Emergency Department Summary 11/06/24 MR#: [id number] Acct: [id number] Name: JARED RAYMOND Rep #:[id number] : 1945 79 From: Harrison Linares DO PCP: MARYAM Guerra Status:ADM IN Location: [address] 1 HPI History of Present Illness [...] blood per rectum he presents for evaluation. [facility] Medical History (Updated 11/06/24 @ 05:46 [...] I did discuss the case with his financial administration officer Dr. Silvestre. He recommends that with his [...] H Lymph % (Auto) Cancelled 12.9 L [place] % (Auto) Cancelled 8.9 Eos % (Auto) [...] Drop Cells Cancelled Ovalocytes Cancelled Stomatocytes Cancelled [place] Bodies Cancelled Tani Cells Cancelled Bite Cells [...] Management Discussion w/another healthcare provider: Hospitalist and Warehouse Delivery Driver Discharge Plan Dx/Rx/DC Orders Clinical Impression: GI (gastrointestinal bleed), Benign essential hypertension, Colon cancer, Hyponatremia, Diverticulosis Disposition Disposition: Acute Care Hospital [facility] Discharge Date/Time: 11/06/24 03:21 What to do if you have Problems For any increased pain, shortness of breath, bleeding, nausea or vomiting, chestpain, or any unexpected problems, contact your Primary Care Provider. Call [facility] ([phone]) or report tothe closest Emergency Room. Call 911 if necessary. 11/06/24 0546 Cosigner Signature (if applicable): CC: MARYAM Olson ~ Signed [facility]04-07-2025 Radiology Diagnostic study note [facility] Imaging Services [address], [place] [address] CTA Abd/Pelvis W/WO Contrast MR#: [id number] Acct: [id number] Name: JARED RAYMOND Rep #: [id number] : 1945 M 79 From: Shakira Ramsey MD PCP: Mariela Olson NP-Jenifer Status: REG ER Study:CTA Abd/Pelvis W/WO Contrast Date of Ex am: 11/05/24 Exam# [id number] Ordering Dr: Erica Linares DO PROCEDURE: CTA [...] mesentery with limited distal opacification. Adrenal glands: Ndde-wqyjqda-adbx-right adrenal thickening. Kidneys/Ureters: Symmetric bilateral renal enhancement. [...] CC: MARYAM Olson; Harrison Linares DO ~ Director Of Medical Services: Signed [facility]04-04-2025 Telephone encounter Note* Telephone Encounter - Filomena Rodrigues - 11/02/2024 2:30 PM EDT Patient and his daughter stopped in to talk to Jolynn Frias. 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 Please call patients daughter Teresa [phone] [facility]04-04-2025 Miscellaneous Notes* Telephone Encounter - Filomena Rodrigues - 11/02/2024 2:30 PM EDT Patient and his daughter stopped in to talk to Jolynn Frias. 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 Please call patients daughter Teresa [phone] [facility] Discharge summary [facility] Medical Records Department [address] [address] Emergency Department Summary 10/24/24 MR#: [id number] Acct: [id number] Name: JARED RAYMOND Rep #:[id number] : 1945 79 From: Jerry Yuen PCP: [...] Oxygen Delivery Method Room Air Room Air [facility] MDM Narrative Medical decision making narrative: [...] History obtained from others: none Consults: none [facility] Narrative: The patient was initially hemodynamically stable, [...] Discharge home This note was generated with [employer] dictation software. It may contain incorrectwords, spelling, [...] 77.1 H Lymph % (Auto) 12.7 L [place] % (Auto) 8.4 Eos % (Auto) 1.0 [...] Clarity Clear Urine pH 8.0 Ur Specific Alvin 1.010 Urine Protein 15 H Urine Glucose [...] SONOGRAPHIC EVIDENCE OF TESTICULAR TORSION. Reading Location: [facility] Discharge Plan Triage Chief Complaint: Flank [...] NP-C [Primary Care Provider] - Print Language: Telugu What to do if you have Problems For any increased pain, shortness of breath, bleeding, nausea or vomiting, chestpain, or any unexpected problems, contact your Primary Care Provider. Call [facility] ([phone]) or report tothe closest Emergency Room. Call 911 if necessary. 10/24/242033 Cosigner Signature (if applicable): CC: MARYAM Olson ~ Signed [facility]03-26-2025 Radiology Diagnostic study note [facility] Imaging Services [address] [place], [place] [address] Testicular with Arterial Flow MR#: [id number] Acct: [id number] Name: JARED RAYMOND Rep #: [id number] : 1945 M 79 From: Vanessa Rosado MD PCP: MARYAM Guerra Status: REG ER Study:Testicular with Arterial Flow Date of E xam: 10/24/24 Exam# [id number] Ordering Dr: Robby Hightower DO PROCEDURE: TESTICULAR [...] SONOGRAPHIC EVIDENCE OF TESTICULAR TORSION. Reading Location: [id number] CC: TRACK WALKER-C Mariela Olson; Dr. Jerry Hightower, DO ~ Director Of Medical Services: Signed [facility]03-26-2025 Radiology Diagnostic study note [facility] Imaging Services [address] [place] [address] Abdomen/Pelvis W IV Cont ONLY MR#: [id number] Acct: [id number] Name: JARED RAYMOND Rep #: [id number] : 1945 M 79 From: Vanessa Rosado MD PCP: MARYAM Guerra Status: REG CLI Study:Abdomen/Pelvis W IV Cont ONLY Date of E xam: 10/24/24 Exam# [id number] Ordering Dr: Thang Hernandez MD PROCEDURE: ABDOMEN/PELVIS [...] excluded. Attentionon follow-up imaging recommended. Reading Location: [id number] CC: MARYAM Olson; Dr. Papi Hernandez MD ~ Director Of Medical Services: Signed [facility]03-26-2025 Discharge summary Author Jerry Hightower [facility] Note Date/Time October 24, 2024 8:3 4pm [facility] Medical Records Department [address] [place] [address] Emergency Department Summary 10/24/24 MR#: [id number] Acct: [id number] Name: JARED RAYMOND Rep #:[id number] : 1945 79 From: Jerry Yuen PCP: MARYAM Guerra Status:REG ER Location: ED HPI History of Present Illness Chief Complaint: Flank Pain [facility] Medical History (Updated 10/24/24 @ 19:59 [...] Oxygen Delivery Method Room Air Room Air [facility] MDM Narrative Medical decision making narrative: [...] Discharge home This note was generated with [employer] software. It may contain incorrectwords, spelling, and [...] 77.1 H Lymph % (Auto) 12.7 L [place] % (Auto) 8.4 Eos % (Auto) 1.0 [...] Clarity Clear Urine pH 8.0 Ur Specific Alvin 1.010 Urine Protein 15 H Urine Glucose [...] SONOGRAPHIC EVIDENCE OF TESTICULAR TORSION. Reading Location: [facility] Discharge Plan Triage Chief Complaint: Flank [...] MARYAM [Primary Care Provider] - Print Language: Telugu What to do if you have Problems For any increased pain, shortness of breath, bleeding, nausea or vomiting, chestpain, or any unexpected problems, contact your Primary Care Provider. Call [facility] ([phone]) or report to the closest Emergency Room. Call 911 if necessary. 10/24/242033 <Electronically signed by Jerry Hightower DO> Cosigner Signature (if applicable): CC: TRACK WALKERCatherine Olson ~ Signed [facility] Work Phone: 1(699) 925-358103-19-2025 Evaluation note* Diagnosis Onset Date Resolution Status [...] metastasis present chronic December 04, 2024 11:24am [facility] Work Phone: 1(144) 257-535203-19-2025 Evaluation note* Diagnosis Onset Date Resolution Status [...] node metastasis present chronic January 09 3:16pm [facility] Work Phone: 1(561) 717-189402-07-2025 History of Present illness Narrative* Encounter Date [...] seldom monitors, usually can tell by his [employer] puzzles. (+) eye vitamin PO Vision seems [...] Referred by Julissa Yap O.D. at [facility]. Wears OTC readers. Straight lines appear wavy in OS. [facility] Work Phone: 1(418) 866-621801-08-2025 Evaluation note* Diagnosis Onset Date Resolution Status [...] 2:56am GI bleed acute November 18 12:59pm [facility] Work Phone: 1(725) 798-208801-08-2025 Evaluation note* Diagnosis Onset Date Resolution Status [...] 2024 12:59pm Rectal bleeding acute October 12:59pm [facility] Work Phone: 1(167) 895-551801-08-2025 Evaluation note* Diagnosis Onset Date Resolution Status [...] metastasis present chronic December 04, 2024 11:24am [facility] Work Phone: 1(854) 664-561112-18-2024 Evaluation note* Diagnosis Onset Date Resolution Status [...] lymph node chronic November 06, 2024 2:56am [facility] Work Phone: 1(165) 456-356412-18-2024 Evaluation note* Diagnosis Onset Date Resolution Status [...] lymph node chronic November 06, 2024 2:56am [facility] Work Phone: 1(371) 314-701812-13-2024 Instructions* Date Instruction Additional Infor mation 7-8 [...] hemorrhage, left eye [facility] Work Phone: 1(865) 485-736812-04-2024 Evaluation note* Diagnosis Onset Date Resolution Status [...] 19, 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 October 17, 2024 2:04pm [facility] Work Phone: 1(545) 531-709311-22-[address] [facility]11-18-[address] [facility]11-10-[address] [facility] 05-01-[address] [facility]09-27-[address] [facility]09-15-[address] [facility]07-25-2022 Miscellaneous Notes * Telephone Encounter - Michela Saucedo - 02/22/2022 3:14 PM EDT Patient arrived at the [facility] in [place], [place] requesting an appointment to become established with a new PCP in this region. The patient reports having similar symptoms in the right upper extremity that he experienced prior to his quintuple bypass surgery. He was provided the phone number and name of the cardiac surgeon and was scheduled to see Dr. Chapman 05/28/22. Please advise patient if he should follow up with program planner prior to PCP visit. documented in this encounter[facility]12-[facility] History of Past illness Narrative* Problem Noted Date Resolved Date On mechanically assisted ventilation 07/19/2019 07/20/2019 Overview: Grade I airway A/P- WTE Stress hyperglycemia 07/19/2019 07/21/2019 Overview: H: Post op A/P-No h/o DM. [place]-operative insulin resistance and exacerbation of hyperglycemia. RHI drip per ICU protocol, transition to SSI documented as of this encounter (statuses as of 02/22/2022) [facility]* Clinical Note Date No Information [facility] Work Phone: Consult note Author Kush Daniel [facility] Note Date/Time November 20, 2024 1:4 3pm [facility] Medical Records Department [address] [place] [address] Counseling Note - Pharmacy 11/20/24 1342 MR#: [id number] Acct: [id number] Name: JARED RAYMOND Rep #:[id number] : 1945 79 From: Kush Daniel PCP: MARYAM Guerra Status:ADM IN Y Location: [place] [address] [place] Med Reconciliation Pharmacy Service has performed discharge [...] 11/20/24 11/20/24 1343 <Electronically signed by Kush gzuman> Date _ Kush Vela Signature (if applicable): Date CC: ~ Signed [facility] Work Phone: Discharge summary* Clinical Note Date No Information [facility] Work Phone: Discharge summary Author Stevie Harrington [facility] Note Date/Time November 07, 2024 5:07 pm [facility] Medical Records Department [address] [place] [address] Discharge Summary 11/07/24 1655 MR#: [id number] Acct: [id number] Name: JARED RAYMOND Rep #:[id number] : 1945 79 From: Stevie Harrington DO PCP: MARYAM Guerra Status:ADM IN Location: [place] [id number] Providers Date of Admission: 11/06/24 Primary Care Physician: MARYAM Guerra Consultations 11/06/24 03:28 Consult: Gastroenterology Routine Consulting Provider: [facility] Reason for Consult: LGIB with [facility]; [...] 70.4 H, Lymph % (Auto) 14.8 L, [place] % (Auto) 12.5 H, Eos % (Auto) [...] Self Care Charges/Coding Visit Charges Inpatient E&M: 64104 Disch Hosp >30min 11/07/24 1707 <Electronically signed by Stevie Harrington DO> Cosigner Signature (if applicable): CC: MARYAM Olson; Dr. Stevie Harrington DO~ Signed [facility] Work Phone: Evaluation noteNo assessment information available [facility] Work Phone: Evaluation note* Diagnosis Onset Date Resolution Status Acute alteration in mental status acute Elevated troponin acute Chronic hypertension chronic [facility] Work Phone: Evaluation note* Diagnosis Onset Date Resolution Status Elevated troponin acute Chronic hypertension chronic Hypertensive emergency witho ut congestive heart failure resolved [facility] Work Phone: Evaluation note* Type Assessment [...] begin a bowel regimen which will include ajkj-ulx-gmkxlxv medicine such as senna, Colace and MiraLAX. Please return to the emergency department if your symptoms change or worsen. Please follow with your primary care physician for further outpatient evaluation and management.[facility] Work Phone: Progress note* Clinical Note Date No Information [facility] Work Phone: Reason for referral (narrative)* Reason For Referral No Information [facility] Work Phone: Rewtvo for referral (narrative)No reason for referral information availableWMarietta [facility] Work Phone: Advance Directives No Advanced Directives Records FoundDocuments on File Type Date Recorded Patient Inclusion Paraeducator Expl anation Advance Directive(s) 07/18/2019 4:40 PM Advance Directive(s) 07/12/2019 2:31 PM Advance Directive(s) 05/14/2019 8:30 AM Advance Directive Response Recorded Date/ Time Advance Directives No October 31 11:26am Living Will Yes March 06, 2018 2:30pm Power of Pediatric Physician No March 06 2:30pm Advance Directive Response Recorded Date/ Time Advance Directives No October 31 10:26am Living Will Yes August 15 6:13pm Power of Pediatric Physician Yes August 15, 2023 6:13pm Name of Medical Power of Pediatric Physician [place] Raymond August 15, 2023 6:13pm Advance Directive Response Recorded Date/ Time Name of Medical Power of Pediatric Physician SPRING RAYMOND August 15, 2023 11:26pm Advance Directives No October 31 11:26am Living Will No December 11, 2023 2 :44am Power of Pediatric Physician No December 11, 2023 2:44am Directive Yes / No Effective Date File Name No Information Advance Directive Response Recorded Date/ Time Living Will Yes April 12, 2024 2:59am Do you have a Healthcare Power of Pediatric Physician? Yes April 12, 2024 2:59am Living Will Yes April 27, 2024 2:58pm Do you have a Healthcare Power of Pediatric Physician? Yes April 27, 2024 2:58pm Living Will Yes October 24, 2024 6:01pm Do you have a Healthcare Power of Pediatric Physician? Yes October 24, 2024 6:01pm Name of Medical Power of Pediatric Physician October 24, 2024 6:01pm Advance Directives No October 31 11:26am Advance Directive Response Recorded Date/ Time Living Will Yes April 12, 2024 2:59am Do you have a Healthcare Power of Pediatric Physician? Yes April 12, 2024 2:59am Living Will Yes April 27, 2024 2:58pm Do you have a Healthcare Power of Pediatric Physician? Yes April 27, 2024 2:58pm Living Will Yes October 24, 2024 6:01pm Do you have a Healthcare Power of Pediatric Physician? Yes October 24, 2024 6:01pm Name of Medical Power of Pediatric Physician October 24, 2024 6:01pm Living Will No November 05, 2024 10:42pm Do you have a Healthcare Power of Pediatric Physician? No November 05, 2024 10:42pm Advance Directives No October 31 11:26am Advance Directive Response Recorded Date/ Time Living Will Yes April 12, 2024 2:59am Do you have a Healthcare Power of Pediatric Physician? Yes April 12, 2024 2:59am Living Will Yes April 27, 2024 2:58pm Do you have a Healthcare Power of Pediatric Physician? Yes April 27, 2024 2:58pm Living Will Yes October 24, 2024 6:01pm Do you have a Healthcare Power of Pediatric Physician? Yes October 24, 2024 6:01pm Name of Medical Power of Pediatric Physician October 24, 2024 6:01pm Living Will No November 06, 2024 3:38am Do you have a Healthcare Power of Pediatric Physician? No November 06, 2024 3:38am Advance Directives No October 31 11:26am Advance Directive Response Recorded Date/ Time Living Will Yes April 12, 2024 2:59am Do you have a Healthcare Power of Pediatric Physician? Yes April 12, 2024 2:59am Living Will Yes April 27, 2024 2:58pm Do you have a Healthcare Power of Pediatric Physician? Yes April 27, 2024 2:58pm Living Will No November 18, 2024 10:49am Do you have a Healthcare Power of Pediatric Physician? No November 18, 2024 10:49am Living Will Yes October 24, 2024 6:01pm Do you have a Healthcare Power of Pediatric Physician? Yes October 24, 2024 6:01pm Name of Medical Power of Pediatric Physician October 24, 2024 6:01pm Living Will No November 06, 2024 3:38am Do you have a Healthcare Power of Pediatric Physician? No November 06, 2024 3:38am Advance Directives No October 31 11:26am Advance Directive Response Recorded Date/ Time Living Will Yes April 12, 2024 2:59am Do you have a Healthcare Power of Pediatric Physician? Yes April 12, 2024 2:59am Living Will Yes April 27, 2024 2:58pm Do you have a Healthcare Power of Pediatric Physician? Yes April 27, 2024 2:58pm Living Will No November 18, 2024 3:46pm Do you have a Healthcare Power of Pediatric Physician? No November 18, 2024 3:46pm Living Will Yes October 24, 2024 6:01pm Do you have a Healthcare Power of Pediatric Physician? Yes October 24, 2024 6:01pm Name of Medical Power of Pediatric Physician October 24, 2024 6:01pm Living Will No November 06, 2024 3:38am Do you have a Healthcare Power of Pediatric Physician? No November 06, 2024 3:38am Advance Directives No October 31 11:26am Advance Directive Response Recorded Date/ Time Living Will Yes April 12, 2024 2:59am Do you have a Healthcare Power of Pediatric Physician? Yes April 12, 2024 2:59am Living Will Yes April 27, 2024 2:58pm Do you have a Healthcare Power of Pediatric Physician? Yes April 27, 2024 2:58pm Living Will No November 18, 2024 3:46pm Do you have a Healthcare Power of Pediatric Physician? No November 18, 2024 3:46pm Living Will Yes October 24, 2024 6:01pm Do you have a Healthcare Power of Pediatric Physician? Yes October 24, 2024 6:01pm Name of Medical Power of Pediatric Physician October 24, 2024 6:01pm Living Will No November 06, 2024 3:38am Do you have a Healthcare Power of Pediatric Physician? No November 06, 2024 3:38am Living Will No January 14, 2025 9:01am Do you have a Healthcare Power of Pediatric Physician? No January 14, 2025 9:01am Advance Directives [...] November 20, 2024 1:2 2pm F/U FROM [facility] TO DR Olivares October 10:59am RE-EVALUATE [...] November 20, 2024 1:2 2pm F/U FROM [facility] TO DR Olivares October 10:59am RE-EVALUATE [...] or prosecute any alcohol or drug abuse patient.[facility] CenterIn the event this information is protected by the Federal Confidentiality of Alcohol and Drug Abuse Patient Records regulations: The Federal rules restrict any use of the information to criminally investigate or prosecute any alcohol or drug abuse patient.[facility] Reason for Visit (unrecogniz ed section and content) Reason Comments Patient Question Care Teams (unrecognized sec tion and content) [employer] Relationship Specialty Start Date End Date Neville Islas DO [address] [place] [address] PCP - General Family Practice 05/07/19 Team Status: Active Member Role Status Dates Dr. Neville Islas DO Family Provider Active Mariela Shahram , [employer] WALKER-C Primary Care Provider Active Team Status: Inactive [...] Member Role Status Dates Mariela Olson , [employer]-C Primary Care Provider Active Team Status: Inactive Member Role Status Dates Mariela Olson , [employer]ER-C Primary Care Provider Active Start: July 04, 2024 End: July 04, 2024 Mariela Olson , [employer] WALKER-C Referring Provider Active St art: July 04, 2024 End: July 04, 2024 Dr. Papi Hernandez MD Attending Provider Active S tart: July 04, 2024 End: July 04, 2024 Team Status: Inactive Member Role Status Dates Mariela Olson , [employer] WALK[employer]-C Primary Care Provider Active Start: July 18, 2024 End: July 18, 2024 Mariela Olson , [employer] WALKER-C Referring Provider Active St art: July 18, 2024 End: July 18, 2024 Selam Craig NP, [employer]-C Attending Provider Active Start: July 18, 2024 End: July 18, 2024 Team Status: Inactive Member Role Status Dates Marielabruce Olson , [employer] WALKER-C Primary Care Provider Active Start: August 08, 2024 End: August 08, 2024 Mariela Olson , [employer] WALKER-C Referring Provider Active St art: August 08, 2024 End: August 08, 2024 Dr. Papi Hernandez MD Attending Provider Active S tart: August 08, 2024 End: August 08, 2024 Team Status: Inactive Member Role Status Dates Mariela Shahram , [employer] WALKER-C Primary Care Provider Active Start: September 05, 2024 End: September 05, 2024 Mariela Olson , [employer]-C Attending Provider Active St art: September 05, 2024 End: September 05, 2024 Team Status: Inactive Member Role Status Dates Marielabruce Olson , [employer]ER-C Primary Care Provider Active Start: October 17, 2024 End: October 17, 2024 Mariela Olson , [employer] W[employer]ER-C Referring Provider Active St art: October 17, 2024 End: October 17, 2024 Malinda Webster TRACK WALKER, [employer]ALKER-C Attending Provider Active S tart: October 17, 2024 End: October 17, 2024 Team Status: Active Member Role Status Dates Mariela Olson , [employer]-C Primary Care Provider Active Start: October 17, 2024 Malinda Webster TRACK WALKER, [employer]ALKER-C Attending Provider Active S tart: October 17, 2024 Malinda Webster TRACK WALKER, [employer]ALKER-C Referring Provider Active S tart: October 17, 2024 Team Status: Active Member Role Status Dates Mariela Olson , [employer]-C Primary Care Provider Active Start: October 24, 2024 Dr. Papi Hernandez MD Attending Provider Active S tart: October 24, 2024 Dr. Papi Hernandez MD Referring Provider Active S tart: October 24, 2024 Team Status: Inactive Member Role Status Dates Mariela Olson [employer]-C Primary Care Provider Active Start: October 24, 2024 End: October 24, 2024 Dr. Jerry Hightower DO Emergency Provider Active Start: October 24, 2024 End: October 24, 2024 Team Status: Inactive Member Role Status Dates Mariela Olson , [employer]-C Primary Care Provider Active Start: October 17, 2024 End: October 17, 2024 Malinda Webster TRACK WALKER, [employer] WALKER-C Attending Provider Active S tart: October 17, 2024 End: October 17, 2024 Malinda Webster TRACK WALKER, [employer]ER-C Referring Provider Active S tart: October 17, 2024 End: October 17, 2024 Team Status: Inactive Member Role Status Dates Mariela Olson , [employer]-C Primary Care Provider Active Start: October 24, 2024 End: October 24, 2024 Dr. Papi Hernandez MD Attending Provider Active S tart: October 24, 2024 End: October 24, 2024 Dr. Papi Hernandez MD Referring Provider Active S tart: October 24, 2024 End: October 24, 2024 Team Status: Inactive Member Role Status Dates Mariela Olson [employer]-C Primary Care Provider Active Start: October 24, 2024 End: October 24, 2024 Dr. Jerry Hightower DO Attending Provider Active Start: October 24, 2024 End: October 24, 2024 Dr. Jerry Hightower DO Emergency Provider Active Start: October 24, 2024 End: October 24, 2024 Team Status: Inactive Member Role Status Dates Mariela Olson , [employer]-C Primary Care Provider Active Start: October 31, 2024 End: October 31, 2024 Mariela Olson [employer]-C Referring Provider Active St art: October 31, 2024 End: October 31, 2024 Dr. Papi Hernandez MD Attending Provider Active S tart: October 31, 2024 End: October 31, 2024 Team Status: Active Member Role Status Dates Mariela Olson , [employer] WALK[employer]-C Primary Care Provider Active Start: November 06, 2024 Dr. Harrison Linares , DO Emergency Provider Active Start: November 06, 2024 Dr. Darrel Carpenter , DO Admit Provider Active Start: November 06, 2024 Dr. Darrel Carpenter , DO Attending Provider Active Start: November 06, 2024 Team Status: Inactive Member Role Status Dates Mariela Olson , [employer]-C Primary Care Provider Active Start: November 06, [...] Member Role Status Dates Mariela Olson , [employer] WALKER-C Primary Care Provider Active Start: November 06, [...] Member Role Status Dates Mariela Olson , [employer]-C Primary Care Provider Active Start: November 07, 2024 Dr. Harrison Linares , DO Emergency Provider Active Start: November 07, 2024 Dr. Darrel Carpenter , DO Admit Provider Active Start: November 07, 2024 Dr. Darerl Carpenter , DO Other Provider Active Start: November 07, 2024 Dr. Stevie Harrington , DO Attending Provider Active Start: November 07, 2024 Dr. Stevie Harrington , DO Other Provider Active Star t: November 07, 2024 Team Status: Active Member Role Status Dates Mariela Olson , [employer]ALKER-C Primary Care Provider Active Start: November 06, [...] Active Member Role Status Dates Mariela Olson [employer]-C Primary Care Provider Active Start: November 07, 2024 End: November 07, 2024 Dr. Adrian Flores MD Attending Provider Active S tart: November 07, 2024 End: November 07, 2024 Dr. Adrian Flores MD Referring Provider Active S tart: November 07, 2024 End: November 07, 2024 Team Status: Active Member Role Status Dates Mariela Olson [employer]-C Primary Care Provider Active Start: November 18, 2024 Dr. Lazaro Sharp MD Emergency Provider Active Sta rt: November 18, 2024 Dr. Kelvin Schrader MD Admit Provider Active Start: November 18, 2024 Dr. Kelvin Schrader MD Attending Provider Active Start: November 18, 2024 Dr. Kelvin Schrader MD Referring Provider Active Start: November 18, 2024 Team Status: Inactive Member Role Status Dates Mariela Olson , [employer]ALK[employer]-C Primary Care Provider Active Start: November 18, [...] Active Member Role Status Dates Mariela Olson [employer]ALK[employer]-C Primary Care Provider Active Start: November 18, [...] Active Member Role Status Dates Mariela Olson [employer]ALKER-C Primary Care Provider Active Start: November 19, [...] Active Member Role Status Dates Mariela Olson [employer]-C Primary Care Provider Active Start: November 19, [...] Active Member Role Status Dates Mariela Olson [employer]ALK[employer]-C Primary Care Provider Active Start: November 18, [...] Inactive Member Role Status Dates Mariela Olson [employer]-C Primary Care Provider Active Start: November 28, 2024 End: November 28, 2024 Mariela Olson NP-Jenifer Referring Provider Active St art: November 28, 2024 End: November 28, 2024 Dr. Brenda Araujo MD Attending Provider Active Start: November 28, 2024 End: November 28, 2024 Team Status: Inactive Member Role Status Dates Mariela Olson [employer]-C Primary Care Provider Active Start: November 28, 2024 End: November 28, 2024 Malinda Webster NP, [employer]-C Attending Provider Active S tart: November 28, 2024 End: November 28, 2024 Malinda Webster TRACK WALKER, [employer] WALKER-C Referring Provider Active S tart: November 28, 2024 End: November 28, 2024 Team Status: Active Member Role Status Dates Marielabruce Olson , [employer]-C Primary Care Provider Active Start: November 28, 2024 Dr. Adrian Flores MD Attending Provider Active S tart: November 28, 2024 Team Status: Inactive Member Role Status Dates Mariela Shahram , [employer]-C Primary Care Provider Active Start: November 30, 2024 End: November 30, 2024 Dr. Brenda Araujo MD Attending Provider Active Start: November 30, 2024 End: November 30, 2024 Dr. Brenda Araujo MD Referring Provider Active Start: November 30, 2024 End: November 30, 2024 Team Status: Inactive Member Role Status Dates Marielabruce Olson , [employer] WALKER-C Primary Care Provider Active Start: December 04, 2024 End: December 04, 2024 Mariela Olson , [employer]-C Referring Provider Active St art: December 04, 2024 End: December 04, 2024 Dr. Ari Silvestre DO Attending Provider Active Start: December 04, 2024 End: December 04, 2024 Team Status: Active Member Role Status Dates Mariela Olson , [employer] WALKER-C Primary Care Provider Active Start: December 05, 2024 Dr. Brenda Araujo MD Attending Provider Active Start: December 05, 2024 Dr. Brenda Araujo MD Referring Provider Active Start: December 05, 2024 Team Status: Inactive Member Role Status Dates Mariela Olson , [employer] WALKER-C Primary Care Provider Active Start: December 05, 2024 End: December 05, 2024 Dr. Brenda Araujo MD Attending Provider Active Start: December 05, 2024 End: December 05, 2024 Dr. 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 Adrian Floers MD Referring Provider Active S tart: January 14, 2025 End: January 14, 2025 Goals (unrecognized section and content) Health Concern Goal Type Priority Status No Information (unrecognized sect ion and content) No Status Records FoundNo Status Records FoundNo Status Records FoundNo Status Records Found INFORMATION SOURCE (unrecogn ized section and content) DATE CREATED AUTHOR 01/14/2025 [facility] DATE CREATED AUTHOR AUTHOR'S ORGANIZ ATION 01/14/2025 [facility] DATE CREATED AUTHOR AUTHOR'S ORGANIZ ATION 01/24/2025 [facility] DATE CREATED AUTHOR AUTHOR'S ORGANIZ ATION 02/07/2025 [facility] tem [facility] FOR RECORDS PERTAINING [...] BE BASED ON THE PRIMARY CLINICAL RECORDS. [facility] [employer] [facility]. provides no warranty or guarantee of the accuracy or completeness of information in this document.
--- OUTSIDE RECORDS SUMMARY | 2025-02-11 02:59 | XMS RPT_ITS | CCD ---
Author Organization [facility] Care Team Providers Care Welder Fitter Name Role Phone Neville Islas DO Primary Care Provider Dr. Neville Islas Primary Care Provider [phone] Dr. Jerry Hightower Emergency Provider [phone] Dr. Darrel Carpenter Admit Provider Unavailabl e Dr. Darrel Carpenter Attending Provider Unavail able Dr. Darrel Carpenter Other Provider Unavailabl e Dr. Adrian Flores Attending Provider [phone] Darrel Carpenter Referring Provider Unavail able Dr. Stevie Umanzor Attending Provider Dr. Lucy Polanco Other Provider Dr. Karli Cruz Attending Provider Dr. Lucy Polanco Attending Provider Darrel Pringle MD Unavailable Unavailable Shahram VEHICLE INSURANCE AGENT-C, Mariela Primary Care Provider Shahram VEHICLE INSURANCE AGENT-C, Mariela Referring Provider Dr. Papi Hernandez MD Attending Provider Rafa VEHICLE INSURANCE AGENT-C, Selam Attending Provider Shahram VEHICLE INSURANCE AGENT-C, Mariela Attending Provider Darin VEHICLE INSURANCE AGENT-C, Malinda Morillo Attending Provider Darin VEHICLE INSURANCE AGENT-C, Malinda Morillo Referring Provider Dr. Papi Hernandez MD Referring Provider Dr. Jerry Hightower DO Emergency Provider Dr. Jerry Hightower DO Attending Provider Shahram VEHICLE INSURANCE AGENT-C, Banner Primary Care Provider Shahram VEHICLE INSURANCE AGENT-C, Mariela Referring Provider Dr. Papi Hernandez MD Attending Provider Dr. Harrison Linares DO Emergency Provider de Tommy , Dr. Rojo Admit Provider Unavail able de Tommy DO, Dr. Rojo Attending Provider Unav ailable de Tommy DO, Dr. Rojo Other Provider Unavail able Juany FARLEY, Dr. Hubbard Attending Provider Juany FARLEY, Dr. Hubbard Other Provider Friend , Dr. Chapman Attending Provider Shahram VEHICLE INSURANCE AGENT-C, Banner Primary Care Provider Shahram VEHICLE INSURANCE AGENT-C, Mariela Referring Provider Juany FARLEY, Dr. Hubbard Referring Provider Mark DAVIS, Dr. Campbell Attending Provider Mark DAVIS, Dr. Campbell Referring Provider Dr. Lazaro Sharp MD Emergency Provider Raciel DAVIS, Dr. Kelvin Vallejo Admit Provider Raciel DAVIS, Dr. Kelvin Valleoj Attending Provider Raciel DAVIS, Dr. Kelvin Vallejo Referring Provider Raciel DAVIS, Dr. Kelvin Vallejo Other Provider Dr. Neville Jang DO Attending Provider Dr. Kelvin Schrader MD Attending Provider Dr. Neville Jang DO Other Provider Shahram VEHICLE INSURANCE AGENT-C, Banner Primary Care Provider Shahram VEHICLE INSURANCE AGENT-C, Mariela Referring Provider Dr. Papi Hernandez MD Attending Provider Shahram VEHICLE INSURANCE AGENT-C, Mariela Attending Provider Roof VEHICLE INSURANCE AGENT-C, Malinda Morillo Attending Provider Roof VEHICLE INSURANCE AGENT-C, Malinda Morillo Referring Provider Dr. Papi Hernandez [...] Vallejo Admit Provider Raciel DAVIS, Dr. Kelvin Valeljo Referring Provider Raciel DAVIS, Dr. Kelvin Vallejo Other Provider Dr. Neville Jang DO Attending Provider Dr. Kelvin Schrader MD Attending Provider Dr. Neville Jang DO Other Provider Dr. Brenda Araujo MD Attending Provider Dr. Brenda Araujo MD Referring Provider Shahram VEHICLE INSURANCE AGENT-C, Mariela Primary Care Provider Shahram VEHICLE INSURANCE AGENT-C, Mariela Referring Provider Dr. Papi Hernandez MD Attending Provider [phone] Gayle DAVIS, Dr. Gutierrez Attending Provider Gayle DAVIS, Dr. Gutierrez Referring Provider Shahram VEHICLE INSURANCE AGENT-C, [facility] Primary Care Provider Shahram VEHICLE INSURANCE AGENT-C, [facility] Referring Provider Mary DAVIS, Dr. Turpin Attending Provider [phone] Shahram VEHICLE INSURANCE AGENT-C, [facility]anner Primary Care Provider Neville Islas DO Primary Care Provider Darrel Pringle Attending Unavailable Julissa Yap Referring Unavailable Darrel Pringle Attending Unavailable Darrel Pringle Referring Unavailable Darrel Pringle Attending Unavailable Julissa Yap Referring Unavailable Darrel Pringle Attending Unavailable Julissa Yap Referring Unavailable Darrel Pringle Attending Unavailable Darrel Pringle Referring Unavailable Darrel Pringle Attending Unavailable Darrel Pringle Referring Unavailable Mark DAVIS, Dr. Campbell Other Provider [phone] Jerry Hightower Attending Unavailable Shahram, Mariela Primary Care Unavailable Shahram, Mariela Referring Unavailable Shahram, Mariela Attending Unavailable Shahram, Banner Primary Care Unavailable Shahram, Banner Primary Care Unavailable Darrel Carpenter Consulting Unavailable Darrel Carpenter Admitting Unavailable Stevie Harrington Attending Unavailable Darrel Carpenter Admitting Unavailable Darrel Carpenter Consulting Unavailable Shahram, Mariela Primary Care Unavailable Stevie Harrington Attending Unavailable Santana Francois Consulting Unavailable Shahram, Mariela Referring Unavailable Shahram, Banner Primary Care Unavailable Papi Hernandez Attending Unavailable Shahram, Mariela Referring Unavailable Shahram, Banner Primary Care Unavailable Papi Hernandez Attending Unavailable Du Thomas Attending Unavailable Shahram, Banner Primary Care Unavailable Du Thomas Referring Unavailable Du Thomas Admitting Unavailable Keo Burgos Consulting Unavailable Du Thomas Consulting Unavailable Shahram, Mariela Referring Unavailable Shahram, Banner Primary Care Unavailable Selam Craig NP Attending Unavailable Roshan, Neville Primary Care Unavailable Neville Islas Attending Unavailable Roshan, Neville Referring Unavailable Shahram, Mariela Primary Care Unavailable Roof VEHICLE INSURANCE AGENT, Malinda H Referring Unavailable Roof VEHICLE INSURANCE AGENT, Malinda H Attending Unavailable Roof VEHICLE INSURANCE AGENT, Malinda H Attending Unavailable Roof VEHICLE INSURANCE AGENT, Malinda H Referring Unavailable Shahram, Mariela Primary Care Unavailable Shahram, Mariela Primary Care Unavailable Papi Hernandez Attending Unavailable Praeve, Papi Referring Unavailable Isckarus, Mansour Referring Unavailable Isckarus, Mansour Attending Unavailable Shahram, Mariela Primary Care Unavailable Isckarus, Mansour Referring Unavailable Isckarus, Mansour Attending Unavailable Shahram, Mariela Primary Care Unavailable Mark, Charleston Attending Unavailable Mark, Adrian Referring Unavailable Shahram, Mariela Primary Care Unavailable Shahram, Mariela Attending Unavailable Shahram, Mariela Referring Unavailable Shahram, Mariela Primary Care Unavailable Mark, Charleston Attending Unavailable Mark, Charleston Referring Unavailable Shahram, Mariela Primary Care Unavailable Mark, [place] Attending Unavailable Shahram, Mariela Primary Care Unavailable [...] Consulting Unavailable Shahram, Mariela Primary Care Unavailable Miek Story Attending Unavailable Mike Story Consulting Unavailable [...] Consulting Unavailable Mark Adrian Attending Unavailable Mark, Charleston Referring Unavailable Shahram, Mariela Primary Care Unavailable [...] Unavailable Shahram, Mariela Primary Care Unavailable Darin VEHICLE INSURANCE AGENT, Malinda Morillo Attending Unavailable Shahram, Mariela Referring [...] Unavailable Shahram, Mariela Primary Care Unavailable Roof VEHICLE INSURANCE AGENT, Malinda Morillo Attending Unavailable Brenda Araujo Referring Unavailable Shahram, Mariela Primary Care Unavailable Shahram, Mariela Primary Care Unavailable Jerry Hightower Attending Unavailable Du Thomas Attending Unavailable Shahram, Mariela Referring Unavailable Shahram, Mariela Primary Care Unavailable Sunny Mancia Consulting Unavailable Allergies Allergy Classification Reported Allergen(s) Allergy Type Date of Onset Reaction(s) Facility (3 sources) fentaNYL Drug Allergy 5 Low blood pressure [facility] (1 source) cloNIDine Drug Allergy 4 [facility] Repository (1 source) fentaNYL Drug Allergy 5 [facility] Repository (1 source) Wheat preparation Drug Allergy 4 [facility] Repository Medications Current Medications Medication Drug Class(es) [...] 04-23-2024 End: 04-25-2024 take 1 capsule by [facility] twice daily at mealtime potassium chloride [...] Coronary atherosclerosis; Translations: [Atherosclerotic heart disease of [place] coronary artery without angina pectoris] Onset: 019 [...] artery of lower limb; Translations: [Atherosclerosis of [place] arteries of extremities with intermittent claudication, bilateral [...] with medicare part A. Instructed will have marketing secretary arrange for financial counseling/assistance with [facility] prior to any appts/tests/procedures. Routed to Clau Wesley to arrange and call patient back [facility] 01-31-2025 36 Left message for pat ient to call office back to schedule CT scan on 02/19 [facility] 01-29-2025 36 Patient scheduled in valve clinic on 02/19 for aortic stenosis, cath and echo completed by Dr. Flores's office. BMP completed 01/08/25 in media. Pended order for CTA TAVR, SANITARY AIDE to sign. Will call patient to schedule same day as OV. Normal [facility] 01-28-2025 36 Chart made and VEHICLE INSURANCE AGENT ondina ckmichelle mailed [facility] 01-22-2025 36 VC appt made for 01/30 09/25 I need to make chart and mail VEHICLE INSURANCE AGENT packet [facility] Oncology Visit Reporton 12-30 Oncology Visit Report Normal [facility] Absolute lymphocyte countOrd ered By: Malinda Webster on 01-08-2025 Lymphocytes Auto (Unsp spec) [#/Vol] 0.70 10*3/uL Low 0.83-4.51 [facility] Anion gap in Serum or Plasma Ordered By: Malinda Webster on 01-08-2025 Anion gap [Moles/Vol] 12 mmol/L - [facility] Automated lymphocyte count a s percentage of total leukocytesOrdered By: Malinda Darin on 01-08-2025 Lymphocytes/100 WBC Auto (Unsp spec) 12.0 % Low 19-41 [facility] BUN/creatinine ratioOrdered By: Malinda Webster on 01-08-2025 Urea nitrogen/Creatinine [Mass ratio] 12.0 mg/mg 05-20 [facility] Basic Metabolic Profile (BMP )on 01-08-2025 BUN/CRE 12.0 RATIO Normal 05-20 [facility] Comment on above: Performed By: #### L 100.0100, L500.2500 ####[facility] [address] [place], [address] Calcium [Mass/Vol] 9.3 mg/dL Normal 7.6-11.0 [facility] Comment on above: Performed By: #### L 100.0100, L500.2500 ####[facility] [address] [place], [address] Chloride [Moles/Vol] 96 mmol/L Low 98-108 [facility] Comment on above: Performed By: #### L 100.0100, L500.2500 ####[facility] [address] [place], [address] CO2 [Moles/Vol] 23.4 mmol/L Normal 21.0-32.0 [facility] Comment on above: Performed By: #### L 100.0100, L500.2500 ####[facility] [address] [place], [address] Creatinine [Mass/Vol] 0.97 mg/dL Normal 0.70-1.20 [facility] Comment on above: Performed By: #### L 100.0100, L500.2500 ####[facility] [address] [place], [address] GAP 12 Normal - [facility] Comment on above: Performed By: #### L 100.0100, L500.2500 ####[facility] [address] [place], [address] GFR/1.73 sq M.predicted among non-blacks MDRD (S/P/Bld) [Vol rate/Area] 79 mL/min/{1.73_m2} Normal >60 [facility] Comment on above: Result Comment: mL/m in/1.73m2 CKD-EPI Creatinine Equation (2020) Performed By: #### L 100.0100, L500.2500 ####[facility] [address] [place], [address] Glucose [Mass/Vol] 102 mg/dL High 70-99 [facility] Comment on above: Performed By: #### L 100.0100, L500.2500 ####[facility] [address] [place], [address] Potassium [Moles/Vol] 4.4 mmol/L Normal 3.3-5.1 [facility] Comment on above: Performed By: #### L 100.0100, L500.2500 ####[facility] [address] [place], [address] Sodium [Moles/Vol] 131 mmol/L Low 133-145 [facility] Comment on above: Performed By: #### L 100.0100, L500.2500 ####[facility] [address] [place], [address] Urea nitrogen [Mass/Vol] 12 mg/dL Normal 4-19 [facility] Comment on above: Performed By: #### L 100.0100, L500.2500 ####[facility] [address] [place], [address] Basophil percentageOrdered B y: Malinda Webster on 01-08-2025 Basophils/100 WBC (Bld) 0.2 % 0-1 [facility] CBC W/Diff, Automatedon 06-1 0-2025 Absolute Lymph 0.70 X10 3/uL Low 0.83-4.51 [facility] Comment on above: Performed By: #### L 100.0100, L500.2500 ####[facility] [address] [place], [address] Absolute Neut 4.3 X10 3/uL Normal 2.0-7.7 [facility] Comment on above: Performed By: #### L 100.0100, L500.2500 ####[facility] [address] [place], [address] Basophils/100 WBC (Bld) 0.2 % Normal 0-1 [facility] Comment on above: Performed By: #### L 100.0100, L500.2500 ####[facility] [address] [place], [address] Eosinophils/100 WBC (Bld) 1.2 % Normal 0-5 [facility] Comment on above: Performed By: #### L 100.0100, L500.2500 ####[facility] [address] [place], [address] Erythrocyte distribution width (RBC) [Ratio] 12.7 % Normal 11.6-14.6 [facility] Comment on above: Performed By: #### L 100.0100, L500.2500 ####[facility] [address] [place], [address] Hematocrit (Bld) [Volume fraction] 32.6 % Low 40-54 [facility] Comment on above: Performed By: #### L 100.0100, L500.2500 ####[facility] [address] [place], [address] Hemoglobin (Bld) [Mass/Vol] 10.9 g/dL Low 13.0-16.5 [facility] Comment on above: Performed By: #### L 100.0100, L500.2500 ####[facility] [address] [place], [address] IG% 0.200 Normal 0.0-0.9 [facility] Comment on above: Result Comment: IG% - Immature Granulocytes (promyelocytes, myelocytes andmetamyelocytes) > 1% indicates that a LEFT SHIFT is Present. Performed By: #### L 100.0100, L500.2500 ####[facility] [address] [place], [address] Lymphocytes/100 WBC (Bld) 12.0 % Low 19-41 [facility] Comment on above: Performed By: #### L 100.0100, L500.2500 ####[facility] [address] [place], [address] MCH (RBC) [Entitic mass] 29.1 pg Normal 27.0-32.0 [facility] Comment on above: Performed By: #### L 100.0100, L500.2500 ####[facility] [address] [place], [address] MCHC (RBC) [Mass/Vol] 33.4 g/dL Normal 32-36 [facility] Comment on above: Performed By: #### L 100.0100, L500.2500 ####[facility] [address] [place], [address] MCV (RBC) [Entitic vol] 86.9 fL Normal 80-94 [facility] Comment on above: Performed By: #### L 100.0100, L500.2500 ####[facility] [address] [place], [address] Monocytes/100 WBC (Bld) 11.9 % High 0-10 [facility] Comment on above: Performed By: #### L 100.0100, L500.2500 ####[facility] [address] [place], [address] Neutrophils/100 WBC (Bld) 74.5 % High 47-70 [facility] Comment on above: Performed By: #### L 100.0100, L500.2500 ####[facility] [address] [place], [address] Nucleated RBC (Bld) [#/Vol] 0 10*3/uL Normal 0-5 [facility] Comment on above: Performed By: #### L 100.0100, L500.2500 ####[facility] [address] [place], [address] Platelet mean volume (Bld) [Entitic vol] 10.1 fL Normal 6.2-12.0 [facility] Comment on above: Performed By: #### L 100.0100, L500.2500 ####[facility] [address] [place], [address] Platelets (Bld) [#/Vol] 243 10*3/uL Normal 150-450 [facility] Comment on above: Performed By: #### L 100.0100, L500.2500 ####[facility] [address] [place], [address] RBC (Bld) [#/Vol] 3.75 10*6/uL Low 4.6-6.2 [facility] Comment on above: Performed By: #### L 100.0100, L500.2500 ####[facility] [address] [place], [address] RDW SD 40.5 fl Normal 35.1-43.9 [facility] Comment on above: Performed By: #### L 100.0100, L500.2500 ####[facility] [address] [place], [address] WBC (Bld) [#/Vol] 5.8 10*3/uL Normal 4.4-11.0 [facility] Comment on above: Performed By: #### L 100.0100, L500.2500 ####[facility] [address] [place], [place], [id number] Carbon dioxide, total [Moles /volume] in Central venous bloodOrdered By: Malinda Webster on 01-08-2025 CO2 [Moles/Vol] 23.4 mmol/L 21.0-32.0 [facility] Chloride assayOrdered By: Santa Webster on 01-08-2025 Chloride [Moles/Vol] 96 mmol/L Low 98-108 [facility] Eosinophil percentageOrdered By: Malinda Webster on 01-08-2025 Eosinophils/100 WBC (Bld) 1.2 % 0-5 [facility] Erythrocyte distribution wid th ratioOrdered By: Malinda Webster on 01-08-2025 Erythrocyte distribution width (RBC) [Ratio] 12.7 % 11.6-14.6 [facility] Erythrocyte distribution wid th standard deviationOrdered By: Malinda Webster on 01-08-2025 Erythrocyte distribution width (RBC) [Ratio] 40.5 fl 35.1-43.9 [facility] Glomerular filtration rate ( GFR) estimation/1.73 sq m using serum, plasma, or whole bOrdered By: Malinda Webster on 01-08-2025 GFR/1.73 sq M.predicted among non-blacks MDRD (S/P/Bld) [Vol rate/Area] 79 mL/min/{1.73_m2} >60 [facility] Hematocrit Auto (Bld) [Volum e fraction]Ordered By: Malinda Webster on 01-08-2025 Hematocrit (Bld) [Volume fraction] 32.6 % Low 40-54 [facility] Hemoglobin measurementOrdere d By: Malinda Webster on 01-08-2025 Hemoglobin (Bld) [Mass/Vol] 10.9 g/dL Low 13.0-16.5 [facility] Immature granulocytes/100 WB C Auto (Bld)Ordered By: Malinda Webster on 01-08-2025 Immature granulocytes/100 WBC (Bld) 0.200 % 0.0-0.9 [facility] MCV (mean corpuscular volume ) determinationOrdered By: Malinda Webster on 01-08-2025 MCV (RBC) [Entitic vol] 86.9 fL 80-94 [facility] Mean corpuscular hemoglobin (MCH) determinationOrdered By: Malinda Webster on 01-08-2025 MCH (RBC) [Entitic mass] 29.1 pg 27.0-32.0 [facility] Monocyte percentageOrdered B y: Malinda Webster on 01-08-2025 Monocytes/100 WBC (Bld) 11.9 % High 0-10 [facility] Neutrophil percentageOrdered By: Malinda Webster on 01-08-2025 Neutrophils/100 WBC (Bld) 74.5 % High 47-70 [facility] Platelet countOrdered By: Santa Webster on 01-08-2025 Platelets (Bld) [#/Vol] 243 10*3/uL 150-450 [facility] Potassium measurement (mass/ volume)Ordered By: Malinda Webster on 01-08-2025 Potassium (Unsp spec) [Mass/Vol] 4.4 mmol/L 3.3-5.1 [facility] RBC Auto (Bld) [#/Vol]Ordere d By: Malinda Webster on 01-08-2025 RBC (Bld) [#/Vol] 3.75 10*6/uL Low 4.6-6.2 [facility] Serum creatinine measurement (mass/volume)Ordered By: Malinda Webster on 01-08-2025 Creatinine [Mass/Vol] 0.97 mg/dL 0.70-1.20 [facility] Serum glucose measurement (m ass/volume)Ordered By: Malinda Webster on 01-08-2025 Glucose [Mass/Vol] 102 mg/dL High 70-99 [facility] Serum or plasma calcium shagufta urement (mass/volume)Ordered By: Malinda Webster on 01-08-2025 Calcium [Mass/Vol] 9.3 mg/dL 7.6-11.0 [facility] Serum or plasma urea nitroge n measurement (mass/volume)Ordered By: Malinda Webster on 01-08-2025 Urea nitrogen [Mass/Vol] 12 mg/dL 4-19 [facility] Sodium levelOrdered By: Malinda Webster on 01-08-2025 Sodium [Moles/Vol] 131 mmol/L Low 133-145 [facility] White blood cell (WBC) count Ordered By: Malinda Webster on 01-08-2025 WBC (Bld) [#/Vol] 5.8 10*3/uL 4.4-11.0 [facility] Carcinoembryonic Antigenon 0 12-16-2024 CEA 47.8 ng/mL High 0.0-4.7 [facility] Comment on above: Order Comment: MALINDA WEBSTER ORDERED CBCD Result Comment: Nons mokers <3.9 Smokers <5.6[employer] Electrochemiluminescence Immunoassay(ECLIA)Values obtained with different assay methods or kitscannot be used interchangeably. Results cannot beinterpreted as absolute evidence of the presence orabsence of malignant disease.Performed at: [employer] [facility] [place] [id number] Director: Jian Paredes PhD, Phone: [phone] Performed By: #### L 100.0100, L503.5250, L503.6030, L3100.2300, L500.4050 ####[facility] [address] [place], [address] Absolute lymphocyte countOrd ered By: [facility] on 12-14-2024 Lymphocytes Auto (Unsp spec) [#/Vol] 0.68 10*3/uL Low 0.83-4.51 [facility] Anion gap in Serum or Plasma Ordered By: Brenda Araujo on 12-14-2024 Anion gap [Moles/Vol] 12 mmol/L 5-15 [facility] Automated lymphocyte count a s percentage of total leukocytesOrdered By: Brenda Araujo on 12-14-2024 Lymphocytes/100 WBC Auto (Unsp spec) 9.9 % Low 19-41 [facility] BUN/creatinine ratioOrdered By: [facility]li [facility] on 12-14-2024 Urea nitrogen/Creatinine [Mass ratio] 11.3 mg/mg 10-20 [facility] Basophil percentageOrdered B y: Brenda Araujo on 12-14-2024 Basophils/100 WBC (Bld) 0.4 % 0-1 [facility] Bilirubin, totalOrdered By: Brenda Araujo on 12-14-2024 Bilirubin [Mass/Vol] 0.51 mg/dL 0.00-1.30 [facility] CBC W/Diff, Automatedon 05-1 -2024 Absolute Lymph 0.68 X10 3/uL Low 0.83-4.51 [facility] Comment on above: Order Comment: MALINDA WEBSTER ORDERED CBCD Performed By: #### L 100.0100, L503.6550, L503.6030, L3100.2300, L500.4050 ####[facility] [address] [place], [address] Absolute Neut 5.5 X10 3/uL Normal 2.0-7.7 [facility] Comment on above: Order Comment: MALINDA WEBSTER ORDERED CBCD Performed By: #### L 100.0100, L503.6550, L503.6030, L3100.2300, L500.4050 ####[facility] [address] [place], [address] Basophils/100 WBC (Bld) 0.4 % Normal 0-1 [facility] Comment on above: Order Comment: MALINDA WEBSTER ORDERED CBCD Performed By: #### L 100.0100, L503.6550, L503.6030, L3100.2300, L500.4050 ####[facility] [address] [place], [address] Eosinophils/100 WBC (Bld) 0.4 % Normal 0-5 [facility] Comment on above: Order Comment: MALINDA WEBSTER ORDERED CBCD Performed By: #### L 100.0100, L503.6550, L503.6030, L3100.2300, L500.4050 ####[facility] [address] [place], [address] Erythrocyte distribution width (RBC) [Ratio] 12.8 % Normal 11.6-14.6 [facility] Comment on above: Order Comment: MALINDA WEBSTER ORDERED CBCD Performed By: #### L 100.0100, L503.6550, L503.6030, L3100.2300, L500.4050 ####[facility] [address] [place], [address] Hematocrit (Bld) [Volume fraction] 31.4 % Low 40-54 [facility] Comment on above: Order Comment: MALINDA WEBSTER ORDERED CBCD Performed By: #### L 100.0100, L503.6550, L503.6030, L3100.2300, L500.4050 ####[facility] [address] [place], [address] Hemoglobin (Bld) [Mass/Vol] 10.8 g/dL Low 13.0-16.5 [facility] Comment on above: Order Comment: MALINDA WEBSTER ORDERED CBCD Performed By: #### L 100.0100, L503.6550, L503.6030, L3100.2300, L500.4050 ####[facility] [address] [place], [address] IG% 0.400 Normal 0.0-0.9 [facility] Comment on above: Order Comment: MALINDA WEBSTER ORDERED CBCD Result Comment: IG% - Immature Granulocytes (promyelocytes, myelocytes andmetamyelocytes) > 1% indicates that a LEFT SHIFT is Present. Performed By: #### L 100.0100, L503.6550, L503.6030, L3100.2300, L500.4050 ####[facility] [address] [place], [address] Lymphocytes/100 WBC (Bld) 9.9 % Low 19-41 [facility] Comment on above: Order Comment: MALINDA WEBSTER ORDERED CBCD Performed By: #### L 100.0100, L503.6550, L503.6030, L3100.2300, L500.4050 ####[facility] [address] [place], [address] MCH (RBC) [Entitic mass] 30.6 pg Normal 27.0-32.0 [facility] Comment on above: Order Comment: MALINDA WEBSTER ORDERED CBCD Performed By: #### L 100.0100, L503.6550, L503.6030, L3100.2300, L500.4050 ####[facility] [address] [place], [address] MCHC (RBC) [Mass/Vol] 34.4 g/dL Normal 32-36 [facility] Comment on above: Order Comment: MALINDA WEBSTER ORDERED CBCD Performed By: #### L 100.0100, L503.6550, L503.6030, L3100.2300, L500.4050 ####[facility] [address] [place], [address] MCV (RBC) [Entitic vol] 89.0 fL Normal 80-94 [facility] Comment on above: Order Comment: MALINDA WEBSTER ORDERED CBCD Performed By: #### L 100.0100, L503.6550, L503.6030, L3100.2300, L500.4050 ####[facility] [address] [place], [address] Monocytes/100 WBC (Bld) 8.6 % Normal 0-10 [facility] Comment on above: Order Comment: MALINDA WEBSTER ORDERED CBCD Performed By: #### L 100.0100, L503.6550, L503.6030, L3100.2300, L500.4050 ####[facility] [address] [place], [address] Neutrophils/100 WBC (Bld) 80.3 % High 47-70 [facility] Comment on above: Order Comment: MALINDA WEBSTER ORDERED CBCD Performed By: #### L 100.0100, L503.6550, L503.6030, L3100.2300, L500.4050 ####[facility] [address] [place], [address] Nucleated RBC (Bld) [#/Vol] 0 10*3/uL Normal 0-5 [facility] Comment on above: Order Comment: MALINDA WEBSTER ORDERED CBCD Performed By: #### L 100.0100, L503.6550, L503.6030, L3100.2300, L500.4050 ####[facility] [address] [place], [address] Platelet mean volume (Bld) [Entitic vol] 9.6 fL Normal 6.2-12.0 [facility] Comment on above: Order Comment: MALINDA WEBSTER ORDERED CBCD Performed By: #### L 100.0100, L503.6550, L503.6030, L3100.2300, L500.4050 ####[facility] [address] [place], [address] Platelets (Bld) [#/Vol] 312 10*3/uL Normal 150-450 [facility] Comment on above: Order Comment: MALINDA WEBSTER ORDERED CBCD Performed By: #### L 100.0100, L503.6550, L503.6030, L3100.2300, L500.4050 ####[facility] [address] [place], [address] RBC (Bld) [#/Vol] 3.53 10*6/uL Low 4.6-6.2 [facility] Comment on above: Order Comment: MALINDA WEBSTER ORDERED CBCD Performed By: #### L 100.0100, L503.6550, L503.6030, L3100.2300, L500.4050 ####[facility] [address] [place], [address] RDW SD 41.6 fl Normal 35.1-43.9 [facility] Comment on above: Order Comment: MALINDA WEBSTER ORDERED CBCD Performed By: #### L 100.0100, L503.6550, L503.6030, L3100.2300, L500.4050 ####[facility] [address] [place], [address] WBC (Bld) [#/Vol] 6.9 10*3/uL Normal 4.4-11.0 [facility] Comment on above: Order Comment: MALINDA WEBSTER ORDERED CBCD Performed By: #### L 100.0100, L503.6550, L503.6030, L3100.2300, L500.4050 ####[facility] [address] [place], [address] Absolute Neut Normal 2.0-7.7 [facility] Comment on above: Result Comment: CBCD ORDER ON OTHER REQ Performed By: #### L 100.0100 ####[facility] [address] [place], [address] HCT Normal 40-54 [facility] Comment on above: Result Comment: CBCD ORDER ON OTHER REQ Performed By: #### L 100.0100 ####[facility] [address] [place], [address] HGB Normal 13.0-16.5 [facility] Comment on above: Result Comment: CBCD ORDER ON OTHER REQ Performed By: #### L 100.0100 ####[facility] [address] [place], [address] MCH Normal 27.0-32.0 [facility] Comment on above: Result Comment: CBCD ORDER ON OTHER REQ Performed By: #### L 100.0100 ####[facility] [address] [place], [address] MCHC Normal 32-36 [facility] Comment on above: Result Comment: CBCD ORDER ON OTHER REQ Performed By: #### L 100.0100 ####[facility] [address] [place], [address] MCV Normal 80-94 [facility] Comment on above: Result Comment: CBCD ORDER ON OTHER REQ Performed By: #### L 100.0100 ####[facility] [address] [place], [address] NEUT% Normal 47-70 [facility] Comment on above: Result Comment: CBCD ORDER ON OTHER REQ Performed By: #### L 100.0100 ####[facility] [address] [place], [address] PLT Normal 150-450 [facility] Comment on above: Result Comment: CBCD ORDER ON OTHER REQ Performed By: #### L 100.0100 ####[facility] [address] [place], [address] RBC Normal 4.6-6.2 [facility] Comment on above: Result Comment: CBCD ORDER ON OTHER REQ Performed By: #### L 100.0100 ####[facility] [address] [place], [address] RDW CV Normal 11.6-14.6 [facility] Comment on above: Result Comment: CBCD ORDER ON OTHER REQ Performed By: #### L 100.0100 ####[facility] [address] [place], [address] RDW SD Normal 35.1-43.9 [facility] Comment on above: Result Comment: CBCD ORDER ON OTHER REQ Performed By: #### L 100.0100 ####[facility] [address] [place], [address] WBC Normal 4.4-11.0 [facility] Comment on above: Result Comment: CBCD ORDER ON OTHER REQ Performed By: #### L 100.0100 ####[facility] [address] [place], [address] Carbon dioxide, total [Moles /volume] in Central venous bloodOrdered By: Brenda Araujo on 12-14-2024 CO2 [Moles/Vol] 23.4 mmol/L 21.0-32.0 [facility] Chest PA and Lateralon 12-14 Chest PA and Lateral Normal [facility] Chloride assayOrdered By: Kalen Araujo on 12-14-2024 Chloride [Moles/Vol] 97 mmol/L Low 98-108 [facility] Comprehensive Metabolic Prof ilon 12-14-2024 Albumin [Mass/Vol] 4.2 g/dL Normal 3.4-4.8 [facility] Comment on above: Order Comment: MALINDA WEBSTER ORDERED CBCD Performed By: #### L 100.0100, L503.6550, L503.6030, L3100.2300, L500.4050 ####[facility] [address] [place], [address] Albumin/Globulin [Mass ratio] 1.4 {ratio} Normal 0.9-2.4 [facility] Comment on above: Order Comment: MALINDA WEBSTER ORDERED CBCD Performed By: #### L 100.0100, L503.6550, L503.6030, L3100.2300, L500.4050 ####[facility] [address] [place], [address] ALK PHOS 116 U/L Normal 40-129 [facility] Comment on above: Order Comment: MALINDA WEBSTER ORDERED CBCD Performed By: #### L 100.0100, L503.6550, L503.6030, L3100.2300, L500.4050 ####[facility] [address] [place], [address] ALT [Catalytic activity/Vol] 11 U/L Normal <=46 [facility] Comment on above: Order Comment: MALINDA WEBSTER ORDERED CBCD Performed By: #### L 100.0100, L503.6550, L503.6030, L3100.2300, L500.4050 ####[facility] [address] [place], [address] AST [Catalytic activity/Vol] 24 U/L Normal <=37 [facility] Comment on above: Order Comment: MALINDA WEBSTER ORDERED CBCD Performed By: #### L 100.0100, L503.6550, L503.6030, L3100.2300, L500.4050 ####[facility] [address] [place], [address] Bilirubin [Mass/Vol] 0.51 mg/dL Normal 0.00-1.30 [facility] Comment on above: Order Comment: MALINDA DARIN ORDERED CBCD Performed By: #### L 100.0100, L503.6550, L503.6030, L3100.2300, L500.4050 ####[facility] [address] [place], [address] BUN/CRE 11.3 RATIO Normal 10-20 [facility] Comment on above: Order Comment: MALINDA DARIN ORDERED CBCD Performed By: #### L 100.0100, L503.6550, L503.6030, L3100.2300, L500.4050 ####[facility] [address] [place], [address] Calcium [Mass/Vol] 9.3 mg/dL Normal 7.6-11.0 [facility] Comment on above: Order Comment: MALINDA DARIN ORDERED CBCD Performed By: #### L 100.0100, L503.6550, L503.6030, L3100.2300, L500.4050 ####[facility] [address] [place], [address] Chloride [Moles/Vol] 97 mmol/L Low 98-108 [facility] Comment on above: Order Comment: MALINDA DARIN ORDERED CBCD Performed By: #### L 100.0100, L503.6550, L503.6030, L3100.2300, L500.4050 ####[facility] [address] [place], [address] CO2 [Moles/Vol] 23.4 mmol/L Normal 21.0-32.0 [facility] Comment on above: Order Comment: MALINDA WEBSTER ORDERED CBCD Performed By: #### L 100.0100, L503.6550, L503.6030, L3100.2300, L500.4050 ####[facility] [address] [place], [address] Creatinine [Mass/Vol] 1.00 mg/dL Normal 0.70-1.20 [facility] Comment on above: Order Comment: MALINDA DARIN ORDERED CBCD Performed By: #### L 100.0100, L503.6550, L503.6030, L3100.2300, L500.4050 ####[facility] [address] [place], [address] GAP 12 Normal 5-15 [facility] Comment on above: Order Comment: MALINDA WEBSTER ORDERED CBCD Performed By: #### L 100.0100, L503.6550, L503.6030, L3100.2300, L500.4050 ####[facility] [address] [place], [address] GFR/1.73 sq M.predicted among non-blacks MDRD (S/P/Bld) [Vol rate/Area] 76 mL/min/{1.73_m2} Normal >60 [facility] Comment on above: Order Comment: MALINDA DARIN ORDERED CBCD Result Comment: mL/m in/1.73m2 CKD-EPI Creatinine Equation (2020) Performed By: #### L 100.0100, L503.6550, L503.6030, L3100.2300, L500.4050 ####[facility] [address] [place], [address] Globulin (S) [Mass/Vol] 3.0 g/dL Normal 2.2-4.2 [facility] Comment on above: Order Comment: MALINDA WEBSTER ORDERED CBCD Performed By: #### L 100.0100, L503.6550, L503.6030, L3100.2300, L500.4050 ####[facility] [address] [place], [address] Glucose [Mass/Vol] 106 mg/dL High 70-99 [facility] Comment on above: Order Comment: MALINDA WEBSTER ORDERED CBCD Performed By: #### L 100.0100, L503.6550, L503.6030, L3100.2300, L500.4050 ####[facility] [address] [place], [address] Potassium [Moles/Vol] 3.8 mmol/L Normal 3.3-5.1 [facility] Comment on above: Order Comment: MALINDA WEBSTER ORDERED CBCD Performed By: #### L 100.0100, L503.6550, L503.6030, L3100.2300, L500.4050 ####[facility] [address] [place], [address] Sodium [Moles/Vol] 133 mmol/L Normal 133-145 [facility] Comment on above: Order Comment: MALINDA WEBSTER ORDERED CBCD Performed By: #### L 100.0100, L503.6550, L503.6030, L3100.2300, L500.4050 ####[facility] [address] [place], [address] T PROT 7.3 g/dL Normal 5.9-8.4 [facility] Comment on above: Order Comment: MALINDA WEBSTER ORDERED CBCD Performed By: #### L 100.0100, L503.6550, L503.6030, L3100.2300, L500.4050 ####[facility] [address] [place], [address] Urea nitrogen [Mass/Vol] 11 mg/dL Normal 4-19 [facility] Comment on above: Order Comment: MALINDA WEBSTER ORDERED CBCD Performed By: #### L 100.0100, L503.6550, L503.6030, L3100.2300, L500.4050 ####[facility] [address] [place], [address] Eosinophil percentageOrdered By: Brenda Araujo on 12-14-2024 Eosinophils/100 WBC (Bld) 0.4 % 0-5 [facility] Erythrocyte distribution wid th ratioOrdered By: Brenda Araujo on 12-14-2024 Erythrocyte distribution width (RBC) [Ratio] 12.8 % 11.6-14.6 [facility] Erythrocyte distribution wid th standard deviationOrdered By: [facility] on 12-14-2024 Erythrocyte distribution width (RBC) [Ratio] 41.6 fl 35.1-43.9 [facility] Ferritinon 12-14-2024 Ferritin [Mass/Vol] 49 ng/mL Normal 37-417 [facility] Comment on above: Order Comment: MALINDA WEBSTER ORDERED CBCD Performed By: #### L 100.0100, L503.6550, L503.6030, L3100.2300, L500.4050 ####[facility] [address] [place], [place], [address] Glomerular filtration rate ( GFR) estimation/1.73 sq m using serum, plasma, or whole bOrdered By: [facility]li [facility] on 12-14-2024 GFR/1.73 sq M.predicted among non-blacks MDRD (S/P/Bld) [Vol rate/Area] 76 mL/min/{1.73_m2} >60 [facility] Hematocrit Auto (Bld) [Volum e fraction]Ordered By: [facility]li [facility] on 12-14-2024 Hematocrit (Bld) [Volume fraction] 31.4 % Low 40-54 [facility] Hemoglobin measurementOrdere d By: Brenda Araujo on 12-14-2024 Hemoglobin (Bld) [Mass/Vol] 10.8 g/dL Low 13.0-16.5 [facility] Immature granulocytes/100 WB C Auto (Bld)Ordered By: Brenda Araujo on 12-14-2024 Immature granulocytes/100 WBC (Bld) 0.400 % 0.0-0.9 [facility] Iron measurement (mass/mass) Ordered By: Brenda Araujo on 12-14-2024 Iron (Unsp spec) [Mass/Mass] 24 ug/dL Low 65-175 [facility] Iron+Iron Binding Capacityon 12-14-2024 Iron [Mass/Vol] 24 ug/dL Low 65-175 [facility] Comment on above: Order Comment: MALINDA WEBSTER ORDERED CBCD Performed By: #### L 100.0100, L503.6550, L503.6030, L3100.2300, L500.4050 ####[facility] [address] [place], [address] IRON SATURATION 8.0 Low 9-55 [facility] Comment on above: Order Comment: MALINDA WEBSTER ORDERED CBCD Performed By: #### L 100.0100, L503.6550, L503.6030, L3100.2300, L500.4050 ####[facility] [address] [place], [address] TIBC 314 ug/dL Normal 250-450 [facility] Comment on above: Order Comment: MALINDA WEBSTER ORDERED CBCD Performed By: #### L 100.0100, L503.6550, L503.6030, L3100.2300, L500.4050 ####[facility] [address] [place], [address] UIBC 290 ug/dL Normal 228-428 [facility] Comment on above: Order Comment: MALINDA WEBSTER ORDERED CBCD Performed By: #### L 100.0100, L503.6550, L503.6030, L3100.2300, L500.4050 ####[facility] [address] [place], [address] MCV (mean corpuscular volume ) determinationOrdered By: Brenda Araujo on 12-14-2024 MCV (RBC) [Entitic vol] 89.0 fL 80-94 [facility] Mean corpuscular hemoglobin (MCH) determinationOrdered By: Brenda Araujo on 12-14-2024 MCH (RBC) [Entitic mass] 30.6 pg 27.0-32.0 [facility] Monocyte percentageOrdered B y: Brenda Araujo on 12-14-2024 Monocytes/100 WBC (Bld) 8.6 % 0-10 [facility] Neutrophil percentageOrdered By: Brenda Araujo on 12-14-2024 Neutrophils/100 WBC (Bld) 80.3 % High 47-70 [facility] No Panel InformationOrdered By: Brenda Araujo on 12-14-2024 24 U/L <38 [facility] 290 ug/dL 228-428 [facility] Platelet countOrdered By: Kalen Araujo on 12-14-2024 Platelets (Bld) [#/Vol] 312 10*3/uL 150-450 [facility] Potassium measurement (mass/ volume)Ordered By: Brenda Araujo on 12-14-2024 Potassium (Unsp spec) [Mass/Vol] 3.8 mmol/L 3.3-5.1 [facility] RBC Auto (Bld) [#/Vol]Ordere d By: Brenda Araujo on 12-14-2024 RBC (Bld) [#/Vol] 3.53 10*6/uL Low 4.6-6.2 [facility] Serum creatinine measurement (mass/volume)Ordered By: Brenda Araujo on 12-14-2024 Creatinine [Mass/Vol] 1.00 mg/dL 0.70-1.20 [facility] Serum globulin measurementOr dered By: Brenda Araujo on 12-14-2024 Globulin (S) [Mass/Vol] 3.0 g/dL 2.2-4.2 [facility] Serum glucose measurement (m ass/volume)Ordered By: Brenda Araujo on 12-14-2024 Glucose [Mass/Vol] 106 mg/dL High 70-99 [facility] Serum or plasma alanine carrion otransferase (ALT) measurementOrdered By: Brenda Araujo on 12-14-2024 ALT [Catalytic activity/Vol] 11 U/L <47 [facility] Serum or plasma albumin shagufta urement (mass/volume)Ordered By: Brenda Araujo on 12-14-2024 Albumin [Mass/Vol] 4.2 g/dL 3.4-4.8 [facility] Serum or plasma albumin/glob ulin mass ratioOrdered By: Brenda Araujo on 12-14-2024 Albumin/Globulin [Mass ratio] 1.4 {ratio} 0.9-2.4 [facility] Serum or plasma alkaline airam sphatase measurementOrdered By: Brenda Araujo on 12-14-2024 ALP [Catalytic activity/Vol] 116 U/L 40-129 [facility] Serum or plasma calcium shagufta urement (mass/volume)Ordered By: Brenda Araujo on 12-14-2024 Calcium [Mass/Vol] 9.3 mg/dL 7.6-11.0 [facility] Serum or plasma carcinoembry onic antigen measurement (mass/volume)Ordered By: Brenda Araujo on 12-14-2024 Carcinoembryonic Ag [Mass/Vol] 47.8 ng/mL High 0.0-4.7 [facility] Serum or plasma ferritin francy surement (mass/volume)Ordered By: Brenda Araujo on 12-14-2024 Ferritin [Mass/Vol] 49 ng/mL 37-417 [facility] Serum or plasma iron saturat ion measurement (mass fraction)Ordered By: Brenda Araujo on 12-14-2024 Iron saturation [Mass fraction] 8.0 % Low 9-55 [facility] Serum or plasma urea nitroge n measurement (mass/volume)Ordered By: Brenda Araujo on 12-14-2024 Urea nitrogen [Mass/Vol] 11 mg/dL 4-19 [facility] Sodium levelOrdered By: Tha Araujo on 12-14-2024 Sodium [Moles/Vol] 133 mmol/L 133-145 [facility] Total proteinOrdered By: Rahul Araujo on 12-14-2024 Protein [Mass/Vol] 7.3 g/dL 5.9-8.4 [facility] White blood cell (WBC) count Ordered By: Brenda Araujo on 12-14-2024 WBC (Bld) [#/Vol] 6.9 10*3/uL 4.4-11.0 [facility] Surgical pathology reportOrd ered By: Teresa Martel on 12-06-2024 Surgical pathology study [facility] Absolute lymphocyte countOrd ered By: Darrel Watts on 12-05-2024 Lymphocytes Auto (Unsp spec) [#/Vol] 0.91 10*3/uL 0.83-4.51 [facility] Absolute neutrophil countOrd ered By: Darrel Watts on 12-05-2024 Neutrophils (Bld) [#/Vol] 5.6 10*3/uL 2.0-7.7 [facility] Activated partial thrombopla stin time (aPTT) in platelet poor plasma by coagulation aOrdered By: Darrel Watts on 12-05-2024 aPTT Coag (PPP) [Time] 34.0 s 24.1-36.2 [facility] Automated lymphocyte count a s percentage of total leukocytesOrdered By: Darrel Watts on 12-05-2024 Lymphocytes/100 WBC Auto (Unsp spec) 12.1 % Low 19-41 [facility] Basophil percentageOrdered B y: Darrel Watts on 12-05-2024 Basophils/100 WBC (Bld) 0.3 % 0-1 [facility] Biopsy/Inj or Needle Placeme nton 12-05-2024 Biopsy/Inj or Needle Placement Normal [facility] CBC W/Diff, Automatedon Absolute Lymph 0.91 X10 3/uL Normal 0.83-4.51 [facility] Comment on above: Performed By: #### L 300.4310, L300.3900, L100.0100 ####[facility] [address] [place], [address] Absolute Neut 5.6 X10 3/uL Normal 2.0-7.7 [facility] Comment on above: Performed By: #### L 300.4310, L300.3900, L100.0100 ####[facility] [address] [place], [address] Basophils/100 WBC (Bld) 0.3 % Normal 0-1 [facility] Comment on above: Performed By: #### L 300.4310, L300.3900, L100.0100 ####[facility] [address] [place], [address] Eosinophils/100 WBC (Bld) 2.3 % Normal 0-5 [facility] Comment on above: Performed By: #### L 300.4310, L300.3900, L100.0100 ####[facility] [address] [place], [address] Erythrocyte distribution width (RBC) [Ratio] 12.7 % Normal 11.6-14.6 [facility] Comment on above: Performed By: #### L 300.4310, L300.3900, L100.0100 ####[facility] [address] [place], [address] Hematocrit (Bld) [Volume fraction] 29.2 % Low 40-54 [facility] Comment on above: Performed By: #### L 300.4310, L300.3900, L100.0100 ####[facility] [address] [place], [address] Hemoglobin (Bld) [Mass/Vol] 10.0 g/dL Low 13.0-16.5 [facility] Comment on above: Performed By: #### L 300.4310, L300.3900, L100.0100 ####[facility] [address] [place], [address] IG% 0.300 Normal 0.0-0.9 [facility] Comment on above: Result Comment: IG% - Immature Granulocytes (promyelocytes, myelocytes andmetamyelocytes) > 1% indicates that a LEFT SHIFT is Present. Performed By: #### L 300.4310, L300.3900, L100.0100 ####[facility] [address] [place], [address] Lymphocytes/100 WBC (Bld) 12.1 % Low 19-41 [facility] Comment on above: Performed By: #### L 300.4310, L300.3900, L100.0100 ####[facility] [address] [place], [address] MCH (RBC) [Entitic mass] 30.4 pg Normal 27.0-32.0 [facility] Comment on above: Performed By: #### L 300.4310, L300.3900, L100.0100 ####[facility] [address] [place], [address] MCHC (RBC) [Mass/Vol] 34.2 g/dL Normal 32-36 [facility] Comment on above: Performed By: #### L 300.4310, L300.3900, L100.0100 ####[facility] [address] [place], [address] MCV (RBC) [Entitic vol] 88.8 fL Normal 80-94 [facility] Comment on above: Performed By: #### L 300.4310, L300.3900, L100.0100 ####[facility] [address] [place], [address] Monocytes/100 WBC (Bld) 10.8 % High 0-10 [facility] Comment on above: Performed By: #### L 300.4310, L300.3900, L100.0100 ####[facility] [address] [place], [address] Neutrophils/100 WBC (Bld) 74.2 % High 47-70 [facility] Comment on above: Performed By: #### L 300.4310, L300.3900, L100.0100 ####[facility] [address] [place], [address] Nucleated RBC (Bld) [#/Vol] 0 10*3/uL Normal 0-5 [facility] Comment on above: Performed By: #### L 300.4310, L300.3900, L100.0100 ####[facility] [address] [place], [address] Platelet mean volume (Bld) [Entitic vol] 8.8 fL Normal 6.2-12.0 [facility] Comment on above: Performed By: #### L 300.4310, L300.3900, L100.0100 ####[facility] [address] [place], [address] Platelets (Bld) [#/Vol] 334 10*3/uL Normal 150-450 [facility] Comment on above: Performed By: #### L 300.4310, L300.3900, L100.0100 ####[facility] [address] [place], [address] RBC (Bld) [#/Vol] 3.29 10*6/uL Low 4.6-6.2 [facility] Comment on above: Performed By: #### L 300.4310, L300.3900, L100.0100 ####[facility] [address] [place], [address] RDW SD 41.4 fl Normal 35.1-43.9 [facility] Comment on above: Performed By: #### L 300.4310, L300.3900, L100.0100 ####[facility] [address] [place], [address] WBC (Bld) [#/Vol] 7.5 10*3/uL Normal 4.4-11.0 [facility] Comment on above: Performed By: #### L 300.4310, L300.3900, L100.0100 ####[facility] [address] [place], [address] Eosinophil percentageOrdered By: Darrel Watts on 12-05-2024 Eosinophils/100 WBC (Bld) 2.3 % 0-5 [facility] Erythrocyte distribution wid th ratioOrdered By: Darrel Watts on 12-05-2024 Erythrocyte distribution width (RBC) [Ratio] 12.7 % 11.6-14.6 [facility] Erythrocyte distribution wid th standard deviationOrdered By: Darrel Watts on 12-05-2024 Erythrocyte distribution width (RBC) [Ratio] 41.4 fl 35.1-43.9 [facility] Hematocrit Auto (Bld) [Volum e fraction]Ordered By: Darrel Watts on 12-05-2024 Hematocrit (Bld) [Volume fraction] 29.2 % Low 40-54 [facility] Hemoglobin measurementOrdere d By: Darrel Watts on 12-05-2024 Hemoglobin (Bld) [Mass/Vol] 10.0 g/dL Low 13.0-16.5 [facility] Immature granulocytes/100 WB C Auto (Bld)Ordered By: Darrel Watts on 12-05-2024 Immature granulocytes/100 WBC (Bld) 0.300 % 0.0-0.9 [facility] Comment on above: IG% - Immature Granu locytes (promyelocytes, myelocytes and metamyelocytes) > 1% indicates that a LEFT SHIFT is Present. Immunohistochemical Stainson 12-05-2024 Immunohistochemical Stains Normal [facility] Comment on above: Performed By: #### P IMKY ####[facility] [address] [place], [place], [id number] International normalized rat io (INR) calculationOrdered By: Darrel Watts on 12-05-2024 INR Coag (Bld) [Relative time] 1.1 {INR} [facility] MCV (mean corpuscular volume ) determinationOrdered By: Darrel Watts on 12-05-2024 MCV (RBC) [Entitic vol] 88.8 fL 80-94 [facility] Mean corpuscular hemoglobin (MCH) determinationOrdered By: Darrel Watts on 12-05-2024 MCH (RBC) [Entitic mass] 30.4 pg 27.0-32.0 [facility] Mean corpuscular hemoglobin concentration (MCHC) determinationOrdered By: Darrel Watts on 12-05-2024 MCHC (RBC) [Mass/Vol] 34.2 g/dL 32-36 [facility] Mean platelet volume determi nationOrdered By: Darrel Watts on 12-05-2024 Platelet mean volume (Bld) [Entitic vol] 8.8 fL 6.2-12.0 [facility] Monocyte percentageOrdered B y: Darrel Watts on 12-05-2024 Monocytes/100 WBC (Bld) 10.8 % High 0-10 [facility] Neutrophil percentageOrdered By: Darrel Watts on 12-05-2024 Neutrophils/100 WBC (Bld) 74.2 % High 47-70 [facility] Nucleated red blood cell per centageOrdered By: Darrel Watts on 12-05-2024 Nucleated RBC/100 WBC (Bld) [Ratio] 0 % 0-5 [facility] Partial Thromboplast Timeon 12-05-2024 aPTT Coag (Bld) [Time] 34.0 s Normal 24.1-36.2 [facility] Comment on above: Performed By: #### L 300.4310, L300.3900, L100.0100 ####[facility] [address] [place], [address] Platelet countOrdered By: Gopi Watts on 12-05-2024 Platelets (Bld) [#/Vol] 334 10*3/uL 150-450 [facility] Prothrombin Time w/INRon INR Coag (PPP) [Relative time] 1.1 {INR} Normal [facility] Comment on above: Performed By: #### L 300.4310, L300.3900, L100.0100 ####[facility] [address] [place], [address] PT Coag (PPP) [Time] 14.0 s Normal 11.7-14.9 [facility] Comment on above: Performed By: #### L 300.4310, L300.3900, L100.0100 ####[facility] [address] [place], [address] Prothrombin timeOrdered By: Darrel Watts on 12-05-2024 PT Coag (PPP) [Time] 14.0 s 11.7-14.9 [facility] RBC Auto (Bld) [#/Vol]Ordere d By: Darrel Watts on 12-05-2024 RBC (Bld) [#/Vol] 3.29 10*6/uL Low 4.6-6.2 [facility] White blood cell (WBC) count Ordered By: Darrel Watts on 12-05-2024 WBC (Bld) [#/Vol] 7.5 10*3/uL 4.4-11.0 [facility] Gastroenterology Visit Repor ton 12-04-2024 Gastroenterology Visit Report Normal [facility] Chest WITH Contraston 2024 Chest WITH Contrast Normal [facility] Echo Complete W/ Contraston 11-28-2024 Echo Complete W/ Contrast Normal [facility] Oncology Visit Reporton 11-01 Oncology Visit Report Normal [facility] Absolute lymphocyte countOrd ered By: Neville Jang on 11-20-2024 Lymphocytes Auto (Unsp spec) [#/Vol] 1.21 10*3/uL 0.83-4.51 [facility] Absolute neutrophil countOrd ered By: Neville Jang on 11-20-2024 Neutrophils (Bld) [#/Vol] 7.6 10*3/uL 2.0-7.7 [facility] Automated lymphocyte count a s percentage of total leukocytesOrdered By: Neville Jang on 11-20-2024 Lymphocytes/100 WBC Auto (Unsp spec) 12.0 % Low 19-41 [facility] Basophil percentageOrdered B y: Neville Jang on 11-20-2024 Basophils/100 WBC (Bld) 0.3 % 0-1 [facility] CBC W/Diff, Automatedon 10-31 Absolute Lymph 1.21 X10 3/uL Normal 0.83-4.51 [facility] Comment on above: Performed By: #### L 100.0100 ####[facility] [address] [place], [address] Absolute Neut 7.6 X10 3/uL Normal 2.0-7.7 [facility] Comment on above: Performed By: #### L 100.0100 ####[facility] [address] [place], [address] Basophils/100 WBC (Bld) 0.3 % Normal 0-1 [facility] Comment on above: Performed By: #### L 100.0100 ####[facility] [address] [place], [address] Eosinophils/100 WBC (Bld) 1.7 % Normal 0-5 [facility] Comment on above: Performed By: #### L 100.0100 ####[facility] [address] [place], [address] Erythrocyte distribution width (RBC) [Ratio] 12.6 % Normal 11.6-14.6 [facility] Comment on above: Performed By: #### L 100.0100 ####[facility] [address] [place], [address] Hematocrit (Bld) [Volume fraction] 29.4 % Low 40-54 [facility] Comment on above: Performed By: #### L 100.0100 ####[facility] [address] [place], [address] Hemoglobin (Bld) [Mass/Vol] 10.3 g/dL Low 13.0-16.5 [facility] Comment on above: Performed By: #### L 100.0100 ####[facility] [address] [place], [address] IG% 0.300 Normal 0.0-0.9 [facility] Comment on above: Result Comment: IG% - Immature Granulocytes (promyelocytes, myelocytes andmetamyelocytes) > 1% indicates that a LEFT SHIFT is Present. Performed By: #### L 100.0100 ####[facility] [address] [place], [address] Lymphocytes/100 WBC (Bld) 12.0 % Low 19-41 [facility] Comment on above: Performed By: #### L 100.0100 ####[facility] [address] [place], [address] MCH (RBC) [Entitic mass] 30.8 pg Normal 27.0-32.0 [facility] Comment on above: Performed By: #### L 100.0100 ####[facility] [address] [place], [address] MCHC (RBC) [Mass/Vol] 35.0 g/dL Normal 32-36 [facility] Comment on above: Performed By: #### L 100.0100 ####[facility] [address] [place], [address] MCV (RBC) [Entitic vol] 88.0 fL Normal 80-94 [facility] Comment on above: Performed By: #### L 100.0100 ####[facility] [address] [place], [address] Monocytes/100 WBC (Bld) 10.2 % High 0-10 [facility] Comment on above: Performed By: #### L 100.0100 ####[facility] [address] [place], [address] Neutrophils/100 WBC (Bld) 75.5 % High 47-70 [facility] Comment on above: Performed By: #### L 100.0100 ####[facility] [address] [place], [address] Nucleated RBC (Bld) [#/Vol] 0 10*3/uL Normal 0-5 [facility] Comment on above: Performed By: #### L 100.0100 ####[facility] [address] [place], [address] Platelet mean volume (Bld) [Entitic vol] 8.7 fL Normal 6.2-12.0 [facility] Comment on above: Performed By: #### L 100.0100 ####[facility] [address] [place], [address] Platelets (Bld) [#/Vol] 314 10*3/uL Normal 150-450 [facility] Comment on above: Performed By: #### L 100.0100 ####[facility] [address] [place], [address] RBC (Bld) [#/Vol] 3.34 10*6/uL Low 4.6-6.2 [facility] Comment on above: Performed By: #### L 100.0100 ####[facility] [address] [place], [address] RDW SD 40.2 fl Normal 35.1-43.9 [facility] Comment on above: Performed By: #### L 100.0100 ####[facility] [address] [place], [address] WBC (Bld) [#/Vol] 10.1 10*3/uL Normal 4.4-11.0 [facility] Comment on above: Performed By: #### L 100.0100 ####[facility] [address] [place], [address] Colonoscopy Reporton Colonoscopy Report Normal [facility] Discharge Instructionon 10-31 Discharge Instruction Normal [facility] Eosinophil percentageOrdered By: Neville Jang on 11-20-2024 Eosinophils/100 WBC (Bld) 1.7 % 0-5 [facility] Erythrocyte distribution wid th (RBC) [Ratio]Ordered By: Neville Jang on 11-20-2024 Erythrocyte distribution width (RBC) [Entitic vol] 40.2 fL 35.1-43.9 [facility] Erythrocyte distribution wid th ratioOrdered By: Neville Jang on 11-20-2024 Erythrocyte distribution width (RBC) [Ratio] 12.6 % 11.6-14.6 [facility] Erythrocyte distribution wid th standard deviationOrdered By: Neville Jang on 11-20-2024 Erythrocyte distribution width (RBC) [Ratio] 40.2 fl 35.1-43.9 [facility] Hematocrit Auto (Bld) [Volum e fraction]Ordered By: Neville Jang on 11-20-2024 Hematocrit (Bld) [Volume fraction] 29.4 % Low 40-54 [facility] Hemoglobin measurementOrdere d By: Neville Jang on 11-20-2024 Hemoglobin (Bld) [Mass/Vol] 10.3 g/dL Low 13.0-16.5 [facility] Immature granulocytes/100 WB C Auto (Bld)Ordered By: Neville Jang on 11-20-2024 Immature granulocytes/100 WBC (Bld) 0.300 % 0.0-0.9 [facility] Comment on above: IG% - Immature Granu locytes (promyelocytes, myelocytes and metamyelocytes) > 1% indicates that a LEFT SHIFT is Present. Lymphocytes Auto (Unsp spec) [#/Vol]Ordered By: Neville Jang on 11-20-2024 Lymphocytes (Bld) [#/Vol] 1.21 10*3/uL 0.83-4.51 [facility] Lymphocytes/100 WBC Auto (Un sp spec)Ordered By: Neville Jang on 11-20-2024 Lymphocytes/100 WBC (Bld) 12.0 % Low 19-41 [facility] MCV (mean corpuscular volume ) determinationOrdered By: Neville Jang on 11-20-2024 MCV (RBC) [Entitic vol] 88.0 fL 80-94 [facility] MR/LLFZQUFS4cz 11-20-2024 MR/POSTOPAN2 Normal [facility] Mean corpuscular hemoglobin (MCH) determinationOrdered By: Neville Jang on 11-20-2024 MCH (RBC) [Entitic mass] 30.8 pg 27.0-32.0 [facility] Mean corpuscular hemoglobin concentration (MCHC) determinationOrdered By: Neville Jang on 11-20-2024 MCHC (RBC) [Mass/Vol] 35.0 g/dL 32-36 [facility] Mean platelet volume determi nationOrdered By: Neville Jang on 11-20-2024 Platelet mean volume (Bld) [Entitic vol] 8.7 fL 6.2-12.0 [facility] Monocyte percentageOrdered B y: Neville Jang on 11-20-2024 Monocytes/100 WBC (Bld) 10.2 % High 0-10 [facility] Neutrophil percentageOrdered By: Neville Jang on 11-20-2024 Neutrophils/100 WBC (Bld) 75.5 % High 47-70 [facility] Nucleated red blood cell per centageOrdered By: Neville Jang on 11-20-2024 Nucleated RBC/100 WBC (Bld) [Ratio] 0 % 0-5 [facility] Platelet countOrdered By: Kalen Jang on 11-20-2024 Platelets (Bld) [#/Vol] 314 10*3/uL 150-450 [facility] RBC Auto (Bld) [#/Vol]Ordere d By: Neville Jang on 11-20-2024 RBC (Bld) [#/Vol] 3.34 10*6/uL Low 4.6-6.2 [facility] White blood cell (WBC) count Ordered By: Neville Jang on 11-20-2024 WBC (Bld) [#/Vol] 10.1 10*3/uL 4.4-11.0 [facility] Anion gap in Serum or Plasma Ordered By: Kelvin Schrader on 11-19-2024 Anion gap [Moles/Vol] 12 mmol/L - [facility] BUN/creatinine ratioOrdered By: Kelvin Schrader on 11-19-2024 Urea nitrogen/Creatinine [Mass ratio] 10.4 mg/mg - [facility] Basic Metabolic Profile (BMP )on 11-19-2024 BUN/CRE 10.4 RATIO Normal - [facility] Comment on above: Performed By: #### L 100.0100, L500.2500 ####[facility] [address] [place], [address] Calcium [Mass/Vol] 8.8 mg/dL Normal 7.6-11.0 [facility] Comment on above: Performed By: #### L 100.0100, L500.2500 ####[facility] [address] [place], [address] Chloride [Moles/Vol] 99 mmol/L Normal 98-108 [facility] Comment on above: Performed By: #### L 100.0100, L500.2500 ####[facility] [address] [place], [address] CO2 [Moles/Vol] 21.0 mmol/L Normal 21.0-32.0 [facility] Comment on above: Performed By: #### L 100.0100, L500.2500 ####[facility] [address] [place], [address] Creatinine [Mass/Vol] 0.95 mg/dL Normal 0.70-1.20 [facility] Comment on above: Performed By: #### L 100.0100, L500.2500 ####[facility] [address] [place], [address] ECRCL 57.98 ml/min Normal 50-250 [facility] Comment on above: Performed By: #### L 100.0100, L500.2500 ####[facility] [address] [place], [address] GAP 12 Normal 5-15 [facility] Comment on above: Performed By: #### L 100.0100, L500.2500 ####[facility] [address] [place], [address] GFR/1.73 sq M.predicted among non-blacks MDRD (S/P/Bld) [Vol rate/Area] 81 mL/min/{1.73_m2} Normal >60 [facility] Comment on above: Result Comment: mL/m in/1.73m2 CKD-EPI Creatinine Equation (2020) Performed By: #### L 100.0100, L500.2500 ####[facility] [address] [place], [address] Glucose [Mass/Vol] 99 mg/dL Normal 70-99 [facility] Comment on above: Performed By: #### L 100.0100, L500.2500 ####[facility] [address] [place], [address] Potassium [Moles/Vol] 4.0 mmol/L Normal 3.3-5.1 [facility] Comment on above: Performed By: #### L 100.0100, L500.2500 ####[facility] [address] [place], [address] Sodium [Moles/Vol] 132 mmol/L Low 133-145 [facility] Comment on above: Performed By: #### L 100.0100, L500.2500 ####[facility] [address] [place], [address] Urea nitrogen [Mass/Vol] 10 mg/dL Normal 4-19 [facility] Comment on above: Performed By: #### L 100.0100, L500.2500 ####[facility] [address] [place], [address] CBC W/Diff, Automatedon 10-31 Absolute Lymph 1.20 X10 3/uL Normal 0.83-4.51 [facility] Comment on above: Performed By: #### L 100.0100, L500.2500 ####[facility] [address] [place], [address] Absolute Neut 6.2 X10 3/uL Normal 2.0-7.7 [facility] Comment on above: Performed By: #### L 100.0100, L500.2500 ####[facility] [address] [place], [address] Basophils/100 WBC (Bld) 0.2 % Normal 0-1 [facility] Comment on above: Performed By: #### L 100.0100, L500.2500 ####[facility] [address] [place], [address] Eosinophils/100 WBC (Bld) 1.9 % Normal 0-5 [facility] Comment on above: Performed By: #### L 100.0100, L500.2500 ####[facility] [address] [place], [address] Erythrocyte distribution width (RBC) [Ratio] 12.5 % Normal 11.6-14.6 [facility] Comment on above: Performed By: #### L 100.0100, L500.2500 ####[facility] [address] [place], [address] Hematocrit (Bld) [Volume fraction] 32.0 % Low 40-54 [facility] Comment on above: Performed By: #### L 100.0100, L500.2500 ####[facility] [address] [place], [address] Hemoglobin (Bld) [Mass/Vol] 10.9 g/dL Low 13.0-16.5 [facility] Comment on above: Performed By: #### L 100.0100, L500.2500 ####[facility] [address] [place], [address] IG% 0.400 Normal 0.0-0.9 [facility] Comment on above: Result Comment: IG% - Immature Granulocytes (promyelocytes, myelocytes andmetamyelocytes) > 1% indicates that a LEFT SHIFT is Present. Performed By: #### L 100.0100, L500.2500 ####[facility] [address] [place], [address] Lymphocytes/100 WBC (Bld) 14.2 % Low 19-41 [facility] Comment on above: Performed By: #### L 100.0100, L500.2500 ####[facility] [address] [place], [address] MCH (RBC) [Entitic mass] 30.4 pg Normal 27.0-32.0 [facility] Comment on above: Performed By: #### L 100.0100, L500.2500 ####[facility] [address] [place], [address] MCHC (RBC) [Mass/Vol] 34.1 g/dL Normal 32-36 [facility] Comment on above: Performed By: #### L 100.0100, L500.2500 ####[facility] [address] [place], [address] MCV (RBC) [Entitic vol] 89.1 fL Normal 80-94 [facility] Comment on above: Performed By: #### L 100.0100, L500.2500 ####[facility] [address] [place], [address] Monocytes/100 WBC (Bld) 10.0 % Normal 0-10 [facility] Comment on above: Performed By: #### L 100.0100, L500.2500 ####[facility] [address] [place], [address] Neutrophils/100 WBC (Bld) 73.3 % High 47-70 [facility] Comment on above: Performed By: #### L 100.0100, L500.2500 ####[facility] [address] [place], [address] Nucleated RBC (Bld) [#/Vol] 0 10*3/uL Normal 0-5 [facility] Comment on above: Performed By: #### L 100.0100, L500.2500 ####[facility] [address] [place], [address] Platelet mean volume (Bld) [Entitic vol] 9.2 fL Normal 6.2-12.0 [facility] Comment on above: Performed By: #### L 100.0100, L500.2500 ####[facility] [address] [place], [address] Platelets (Bld) [#/Vol] 353 10*3/uL Normal 150-450 [facility] Comment on above: Performed By: #### L 100.0100, L500.2500 ####[facility] [address] [place], [address] RBC (Bld) [#/Vol] 3.59 10*6/uL Low 4.6-6.2 [facility] Comment on above: Performed By: #### L 100.0100, L500.2500 ####[facility] [address] [place], [address] RDW SD 41.0 fl Normal 35.1-43.9 [facility] Comment on above: Performed By: #### L 100.0100, L500.2500 ####[facility] [address] [place], [address] WBC (Bld) [#/Vol] 8.4 10*3/uL Normal 4.4-11.0 [facility] Comment on above: Performed By: #### L 100.0100, L500.2500 ####[facility] [address] [place], [address] Carbon dioxide, total [Moles /volume] in Central venous bloodOrdered By: Kelvin Schrader on 11-19-2024 CO2 [Moles/Vol] 21.0 mmol/L 21.0-32.0 [facility] Chloride assayOrdered By: Marybel Schrader on 11-19-2024 Chloride [Moles/Vol] 99 mmol/L 98-108 [facility] Estimation of creatinine dunia aranceOrdered By: Kelvin Schrader on 11-19-2024 Estimated Creatinine Clearance Calc 57.98 ml/min 50-250 [facility] GFR/1.73 sq M.predicted gregg g non-blacks MDRD (S/P/Bld) [Vol rate/Area]Ordered By: Kelvin Schrader on 11-19-2024 Estimated GFR (MDRD) Non-Af Amer 81 >60 [facility] Comment on above: mL/min/1.73m2 CKD-EP I Creatinine Equation (2020) Glomerular filtration rate ( GFR) estimation/1.73 sq m using serum, plasma, or whole bOrdered By: Kelvin Schrader on 11-19-2024 GFR/1.73 sq M.predicted among non-blacks MDRD (S/P/Bld) [Vol rate/Area] 81 mL/min/{1.73_m2} >60 [facility] Comment on above: mL/min/1.73m2 CKD-EP I Creatinine Equation (2020) MR/CON.PCM.GIon 11-19-2024 MR/CON.PCM.GI Normal [facility] MR/POSTOP.ANEon 11-19-2024 MR/POSTOP.ANE [facility] Potassium (Unsp spec) [Mass/ Vol]Ordered By: Kelvin Schrader on 11-19-2024 Potassium [Moles/Vol] 4.0 mmol/L 3.3-5.1 [facility] Potassium measurement (mass/ volume)Ordered By: Kelvin Schrader on 11-19-2024 Potassium (Unsp spec) [Mass/Vol] 4.0 mmol/L 3.3-5.1 [facility] Serum creatinine measurement (mass/volume)Ordered By: Kelvin Schrader on 11-19-2024 Creatinine [Mass/Vol] 0.95 mg/dL 0.70-1.20 [facility] Serum glucose measurement (m ass/volume)Ordered By: Kelvin Schrader on 11-19-2024 Glucose [Mass/Vol] 99 mg/dL 70-99 [facility] Serum or plasma calcium shagufta urement (mass/volume)Ordered By: Kelvin Schrader on 11-19-2024 Calcium [Mass/Vol] 8.8 mg/dL 7.6-11.0 [facility] Serum or plasma urea nitroge n measurement (mass/volume)Ordered By: Kelvin Schrader on 11-19-2024 Urea nitrogen [Mass/Vol] 10 mg/dL 11-17 [facility] Sodium levelOrdered By: Vernon Schrader on 11-19-2024 Sodium [Moles/Vol] 132 mmol/L Low 133-145 [facility] [facility] Abdomen/Pelvis W IV Cont ONL Yon 11-18-2024 Abdomen/Pelvis W IV Cont ONLY Normal [facility] Absolute neutrophil countOrd ered By: Radha Damon on 11-18-2024 Neutrophils (Bld) [#/Vol] 5.7 10*3/uL 2.0-7.7 [facility] Anion gap in Serum or Plasma Ordered By: Radha Damon on 11-18-2024 Anion gap [Moles/Vol] 11 mmol/L 12-13 [facility] BUN/creatinine ratioOrdered By: Radha Damon on 11-18-2024 Urea nitrogen/Creatinine [Mass ratio] 13.7 mg/mg 05-20 [facility] Basic Metabolic Profile (BMP )on 11-18-2024 BUN/CRE 13.7 RATIO Normal 05-20 [facility] Comment on above: Performed By: #### L 500.2500, L100.0100 ####[facility] [address] [place], [address] Calcium [Mass/Vol] 8.9 mg/dL Normal 7.6-11.0 [facility] Comment on above: Performed By: #### L 500.2500, L100.0100 ####[facility] [address] [place], [address] Chloride [Moles/Vol] 95 mmol/L Low 98-108 [facility] Comment on above: Performed By: #### L 500.2500, L100.0100 ####[facility] [address] [place], [address] CO2 [Moles/Vol] 24.0 mmol/L Normal 21.0-32.0 [facility] Comment on above: Performed By: #### L 500.2500, L100.0100 ####[facility] [address] [place], [address] Creatinine [Mass/Vol] 1.02 mg/dL Normal 0.70-1.20 [facility] Comment on above: Performed By: #### L 500.2500, L100.0100 ####[facility] [address] [place], [address] ECRCL 54.00 ml/min Normal 50-250 [facility] Comment on above: Performed By: #### L 500.2500, L100.0100 ####[facility] [address] [place], [address] GAP 11 Normal 5-15 [facility] Comment on above: Performed By: #### L 500.2500, L100.0100 ####[facility] [address] [place], [address] GFR/1.73 sq M.predicted among non-blacks MDRD (S/P/Bld) [Vol rate/Area] 74 mL/min/{1.73_m2} Normal >60 [facility] Comment on above: Result Comment: mL/m in/1.73m2 CKD-EPI Creatinine Equation (2020) Performed By: #### L 500.2500, L100.0100 ####[facility] [address] [place], [address] Glucose [Mass/Vol] 104 mg/dL High 70-99 [facility] Comment on above: Performed By: #### L 500.2500, L100.0100 ####[facility] [address] [place], [address] Potassium [Moles/Vol] 4.1 mmol/L Normal 3.3-5.1 [facility] Comment on above: Performed By: #### L 500.2500, L100.0100 ####[facility] [address] [place], [address] Sodium [Moles/Vol] 130 mmol/L Low 133-145 [facility] Comment on above: Performed By: #### L 500.2500, L100.0100 ####[facility] [address] [place], [address] Urea nitrogen [Mass/Vol] 14 mg/dL Normal 4-19 [facility] Comment on above: Performed By: #### L 500.2500, L100.0100 ####[facility] [address] [place], [address] Basophil percentageOrdered B y: Radha Damon on 11-18-2024 Basophils/100 WBC (Bld) 0.3 % 0-1 [facility] CBC W/Diff, Automatedon 10-31 0-2024 Absolute Lymph 1.14 X10 3/uL Normal 0.83-4.51 [facility] Comment on above: Performed By: #### L 500.2500, L100.0100 ####[facility] [address] [place], [address] Absolute Neut 5.7 X10 3/uL Normal 2.0-7.7 [facility] Comment on above: Performed By: #### L 500.2500, L100.0100 ####[facility] [address] [place], [address] Basophils/100 WBC (Bld) 0.3 % Normal 0-1 [facility] Comment on above: Performed By: #### L 500.2500, L100.0100 ####[facility] [address] [place], [address] Eosinophils/100 WBC (Bld) 1.8 % Normal 0-5 [facility] Comment on above: Performed By: #### L 500.2500, L100.0100 ####[facility] [address] [place], [address] Erythrocyte distribution width (RBC) [Ratio] 12.4 % Normal 11.6-14.6 [facility] Comment on above: Performed By: #### L 500.2500, L100.0100 ####[facility] [address] [place], [address] Hematocrit (Bld) [Volume fraction] 29.1 % Low 40-54 [facility] Comment on above: Performed By: #### L 500.2500, L100.0100 ####[facility] [address] [place], [address] Hemoglobin (Bld) [Mass/Vol] 10.3 g/dL Low 13.0-16.5 [facility] Comment on above: Performed By: #### L 500.2500, L100.0100 ####[facility] [address] [place], [address] IG% 0.400 Normal 0.0-0.9 [facility] Comment on above: Result Comment: IG% - Immature Granulocytes (promyelocytes, myelocytes andmetamyelocytes) > 1% indicates that a LEFT SHIFT is Present. Performed By: #### L 500.2500, L100.0100 ####[facility] [address] [place], [address] Lymphocytes/100 WBC (Bld) 14.4 % Low 19-41 [facility] Comment on above: Performed By: #### L 500.2500, L100.0100 ####[facility] [address] [place], [address] MCH (RBC) [Entitic mass] 30.8 pg Normal 27.0-32.0 [facility] Comment on above: Performed By: #### L 500.2500, L100.0100 ####[facility] [address] [place], [address] MCHC (RBC) [Mass/Vol] 35.4 g/dL Normal 32-36 [facility] Comment on above: Performed By: #### L 500.2500, L100.0100 ####[facility] [address] [place], [address] MCV (RBC) [Entitic vol] 87.1 fL Normal 80-94 [facility] Comment on above: Performed By: #### L 500.2500, L100.0100 ####[facility] [address] [place], [address] Monocytes/100 WBC (Bld) 11.2 % High 0-10 [facility] Comment on above: Performed By: #### L 500.2500, L100.0100 ####[facility] [address] [place], [address] Neutrophils/100 WBC (Bld) 71.9 % High 47-70 [facility] Comment on above: Performed By: #### L 500.2500, L100.0100 ####[facility] [address] [place], [address] Nucleated RBC (Bld) [#/Vol] 0 10*3/uL Normal 0-5 [facility] Comment on above: Performed By: #### L 500.2500, L100.0100 ####[facility] [address] [place], [address] Platelet mean volume (Bld) [Entitic vol] 8.6 fL Normal 6.2-12.0 [facility] Comment on above: Performed By: #### L 500.2500, L100.0100 ####[facility] [address] [place], [address] Platelets (Bld) [#/Vol] 333 10*3/uL Normal 150-450 [facility] Comment on above: Performed By: #### L 500.2500, L100.0100 ####[facility] [address] [place], [address] RBC (Bld) [#/Vol] 3.34 10*6/uL Low 4.6-6.2 [facility] Comment on above: Performed By: #### L 500.2500, L100.0100 ####[facility] [address] [place], [address] RDW SD 39.8 fl Normal 35.1-43.9 [facility] Comment on above: Performed By: #### L 500.2500, L100.0100 ####[facility] [address] [place], [address] WBC (Bld) [#/Vol] 7.9 10*3/uL Normal 4.4-11.0 [facility] Comment on above: Performed By: #### L 500.2500, L100.0100 ####[facility] [address] [place], [address] Carbon dioxide, total [Moles /volume] in Central venous bloodOrdered By: Radha Damon on 11-18-2024 CO2 [Moles/Vol] 24.0 mmol/L 21.0-32.0 [facility] Chloride assayOrdered By: Marybel Damon on 11-18-2024 Chloride [Moles/Vol] 95 mmol/L Low 98-108 [facility] Emergency Department Summary on 11-18-2024 Emergency Department Summary Normal [facility] Eosinophil percentageOrdered By: Radha Damon on 11-18-2024 Eosinophils/100 WBC (Bld) 1.8 % 0-5 [facility] Erythrocyte distribution wid th (RBC) [Ratio]Ordered By: Radha Damon on 11-18-2024 Erythrocyte distribution width (RBC) [Entitic vol] 39.8 fL 35.1-43.9 [facility] Erythrocyte distribution wid th ratioOrdered By: Radha Damon on 11-18-2024 Erythrocyte distribution width (RBC) [Ratio] 12.4 % 11.6-14.6 [facility] Estimation of creatinine dunia aranceOrdered By: Radha Damon on 11-18-2024 Estimated Creatinine Clearance Calc 54.00 ml/min 50-250 [facility] GFR/1.73 sq M.predicted gregg g non-blacks MDRD (S/P/Bld) [Vol rate/Area]Ordered By: Radha Damon on 11-18-2024 Estimated GFR (MDRD) Non-Af Amer 74 >60 [facility] Comment on above: mL/min/1.73m2 CKD-EP I Creatinine Equation (2020) H AND P Exam - Hospital[facility] 11-18-2024 H&P Exam - Hospitalist Normal [facility] Hematocrit Auto (Bld) [Volum e fraction]Ordered By: Radha Damon on 11-18-2024 Hematocrit (Bld) [Volume fraction] 29.1 % Low 40-54 [facility] Hemoglobin measurementOrdere d By: Radha Dmaon on 11-18-2024 Hemoglobin (Bld) [Mass/Vol] 10.3 g/dL Low 13.0-16.5 [facility] Immature granulocytes/100 WB C Auto (Bld)Ordered By: Radha Damon on 11-18-2024 Immature granulocytes/100 WBC (Bld) 0.400 % 0.0-0.9 [facility] Comment on above: IG% - Immature Granu locytes (promyelocytes, myelocytes and metamyelocytes) > 1% indicates that a LEFT SHIFT is Present. Lymphocytes Auto (Unsp spec) [#/Vol]Ordered By: Radha Damon on 11-18-2024 Lymphocytes (Bld) [#/Vol] 1.14 10*3/uL 0.83-4.51 [facility] Lymphocytes/100 WBC Auto (Un sp spec)Ordered By: Radha Damon on 11-18-2024 Lymphocytes/100 WBC (Bld) 14.4 % Low 19-41 [facility] MCV (mean corpuscular volume ) determinationOrdered By: Radha Damon on 11-18-2024 MCV (RBC) [Entitic vol] 87.1 fL 80-94 [facility] Mean corpuscular hemoglobin (MCH) determinationOrdered By: Radha Damon on 11-18-2024 MCH (RBC) [Entitic mass] 30.8 pg 27.0-32.0 [facility] Mean corpuscular hemoglobin concentration (MCHC) determinationOrdered By: Radha Damon on 11-18-2024 MCHC (RBC) [Mass/Vol] 35.4 g/dL 32-36 [facility] Mean platelet volume determi nationOrdered By: Radha Damon on 11-18-2024 Platelet mean volume (Bld) [Entitic vol] 8.6 fL 6.2-12.0 [facility] Monocyte percentageOrdered B y: Radha Damon on 11-18-2024 Monocytes/100 WBC (Bld) 11.2 % High 0-10 [facility] Neutrophil percentageOrdered By: Radha Damon on 11-18-2024 Neutrophils/100 WBC (Bld) 71.9 % High 47-70 [facility] Nucleated red blood cell per centageOrdered By: Radha Damon on 11-18-2024 Nucleated RBC/100 WBC (Bld) [Ratio] 0 % 0-5 [facility] Platelet countOrdered By: Marybel Damon on 11-18-2024 Platelets (Bld) [#/Vol] 333 10*3/uL 150-450 [facility] Potassium (Unsp spec) [Mass/ Vol]Ordered By: Radha Damon on 11-18-2024 Potassium [Moles/Vol] 4.1 mmol/L 3.3-5.1 [facility] RBC Auto (Bld) [#/Vol]Ordere d By: Radha Damon on 11-18-2024 RBC (Bld) [#/Vol] 3.34 10*6/uL Low 4.6-6.2 [facility] Serum creatinine measurement (mass/volume)Ordered By: Radha Damon on 11-18-2024 Creatinine [Mass/Vol] 1.02 mg/dL 0.70-1.20 [facility] Serum glucose measurement (m ass/volume)Ordered By: Radha Damon on 11-18-2024 Glucose [Mass/Vol] 104 mg/dL High 70-99 [facility] Serum or plasma calcium shagufta urement (mass/volume)Ordered By: Radha Damon on 11-18-2024 Calcium [Mass/Vol] 8.9 mg/dL 7.6-11.0 [facility] Serum or plasma urea nitroge n measurement (mass/volume)Ordered By: Radha Damon on 11-18-2024 Urea nitrogen [Mass/Vol] 14 mg/dL 4-19 [facility] Sodium levelOrdered By: Seth Damon on 11-18-2024 Sodium [Moles/Vol] 130 mmol/L Low 133-145 [facility] Type AND Screenon 11-18-2024 Ab SCREEN GEL Negative Normal [facility] Comment on above: Order Comment: HGI Performed By: #### B TS ####[facility] [address] [place], [place], [address] White blood cell (WBC) count Ordered By: Radha Damon on 11-18-2024 WBC (Bld) [#/Vol] 7.9 10*3/uL 4.4-11.0 [facility] [employer] 8623on OP Normal [facility] Comment on above: Performed By: #### M 100.0605, M100.6796, M100.637, M600.5000 ####[facility] [address] [place], [place], [address] 12 Lead EKGon 11-07-2024 12 Lead EKG Normal [facility] Absolute lymphocyte countOrd ered By: Stevie Harrington on 11-07-2024 Lymphocytes Auto (Unsp spec) [#/Vol] 0.91 10*3/uL 0.83-4.51 [facility] Absolute neutrophil countOrd ered By: Stevie Harrington on 11-07-2024 Neutrophils (Bld) [#/Vol] 4.3 10*3/uL 2.0-7.7 [facility] Anion gap in Serum or Plasma Ordered By: Stevie Harrington on 11-07-2024 Anion gap [Moles/Vol] 14 mmol/L 5-15 [facility] Automated lymphocyte count a s percentage of total leukocytesOrdered By: Stevie Harrington on 11-07-2024 Lymphocytes/100 WBC Auto (Unsp spec) 14.8 % Low 19-41 [facility] BUN/creatinine ratioOrdered By: Stevie Harrington on 11-07-2024 Urea nitrogen/Creatinine [Mass ratio] 16.0 mg/mg 10- [facility] Basic Metabolic Profile (BMP )on 11-07-2024 BUN/CRE 16.0 RATIO Normal 10- [facility] Comment on above: Performed By: #### L 500.2500, L100.0100 ####[facility] [address] [place], [address] Calcium [Mass/Vol] 8.6 mg/dL Normal 7.6-11.0 [facility] Comment on above: Performed By: #### L 500.2500, L100.0100 ####[facility] [address] [place], [address] Chloride [Moles/Vol] 96 mmol/L Low 98-108 [facility] Comment on above: Performed By: #### L 500.2500, L100.0100 ####[facility] [address] [place], [address] CO2 [Moles/Vol] 18.1 mmol/L Low 21.0-32.0 [facility] Comment on above: Performed By: #### L 500.2500, L100.0100 ####[facility] [address] [place], [address] Creatinine [Mass/Vol] 1.02 mg/dL Normal 0.70-1.20 [facility] Comment on above: Performed By: #### L 500.2500, L100.0100 ####[facility] [address] [place], [address] ECRCL 54.00 ml/min Normal 50-250 [facility] Comment on above: Performed By: #### L 500.2500, L100.0100 ####[facility] [address] [place], [address] GAP 14 Normal 5-15 [facility] Comment on above: Performed By: #### L 500.2500, L100.0100 ####[facility] [address] [place], [address] GFR/1.73 sq M.predicted among non-blacks MDRD (S/P/Bld) [Vol rate/Area] 74 mL/min/{1.73_m2} Normal >60 [facility] Comment on above: Result Comment: mL/m in/1.73m2 CKD-EPI Creatinine Equation (2020) Performed By: #### L 500.2500, L100.0100 ####[facility] [address] [place], [address] Glucose [Mass/Vol] 92 mg/dL Normal 70-99 [facility] Comment on above: Performed By: #### L 500.2500, L100.0100 ####[facility] [address] [place], [address] Potassium [Moles/Vol] 3.8 mmol/L Normal 3.3-5.1 [facility] Comment on above: Performed By: #### L 500.2500, L100.0100 ####[facility] [address] [place], [address] Sodium [Moles/Vol] 128 mmol/L Low 133-145 [facility] Comment on above: Performed By: #### L 500.2500, L100.0100 ####[facility] [address] [place], [address] Urea nitrogen [Mass/Vol] 16 mg/dL Normal 4-19 [facility] Comment on above: Performed By: #### L 500.2500, L100.0100 ####[facility] [address] [place], [address] Basophil percentageOrdered B y: Stevie Harrington on 11-07-2024 Basophils/100 WBC (Bld) 0.5 % 0-1 [facility] CBC W/Diff, Automatedon Absolute Lymph 0.91 X10 3/uL Normal 0.83-4.51 [facility] Comment on above: Performed By: #### L 500.2500, L100.0100 ####[facility] [address] [place], [address] Absolute Neut 4.3 X10 3/uL Normal 2.0-7.7 [facility] Comment on above: Performed By: #### L 500.2500, L100.0100 ####[facility] [address] [place], [address] Basophils/100 WBC (Bld) 0.5 % Normal 0-1 [facility] Comment on above: Performed By: #### L 500.2500, L100.0100 ####[facility] [address] [place], [address] Eosinophils/100 WBC (Bld) 1.3 % Normal 0-5 [facility] Comment on above: Performed By: #### L 500.2500, L100.0100 ####[facility] [address] [place], [address] Erythrocyte distribution width (RBC) [Ratio] 12.3 % Normal 11.6-14.6 [facility] Comment on above: Performed By: #### L 500.2500, L100.0100 ####[facility] [address] [place], [address] Hematocrit (Bld) [Volume fraction] 34.0 % Low 40-54 [facility] Comment on above: Performed By: #### L 500.2500, L100.0100 ####[facility] [address] [place], [address] Hemoglobin (Bld) [Mass/Vol] 11.9 g/dL Low 13.0-16.5 [facility] Comment on above: Performed By: #### L 500.2500, L100.0100 ####[facility] [address] [place], [address] IG% 0.500 Normal 0.0-0.9 [facility] Comment on above: Result Comment: IG% - Immature Granulocytes (promyelocytes, myelocytes andmetamyelocytes) > 1% indicates that a LEFT SHIFT is Present. Performed By: #### L 500.2500, L100.0100 ####[facility] [address] [place], [address] Lymphocytes/100 WBC (Bld) 14.8 % Low 19-41 [facility] Comment on above: Performed By: #### L 500.2500, L100.0100 ####[facility] [address] [place], [address] MCH (RBC) [Entitic mass] 30.6 pg Normal 27.0-32.0 [facility] Comment on above: Performed By: #### L 500.2500, L100.0100 ####[facility] [address] [place], [address] MCHC (RBC) [Mass/Vol] 35.0 g/dL Normal 32-36 [facility] Comment on above: Performed By: #### L 500.2500, L100.0100 ####[facility] [address] [place], [address] MCV (RBC) [Entitic vol] 87.4 fL Normal 80-94 [facility] Comment on above: Performed By: #### L 500.2500, L100.0100 ####[facility] [address] [place], [address] Monocytes/100 WBC (Bld) 12.5 % High 0-10 [facility] Comment on above: Performed By: #### L 500.2500, L100.0100 ####[facility] [address] [place], [address] Neutrophils/100 WBC (Bld) 70.4 % High 47-70 [facility] Comment on above: Performed By: #### L 500.2500, L100.0100 ####[facility] [address] [place], [address] Nucleated RBC (Bld) [#/Vol] 0 10*3/uL Normal 0-5 [facility] Comment on above: Performed By: #### L 500.2500, L100.0100 ####[facility] [address] [place], [address] Platelet mean volume (Bld) [Entitic vol] 9.3 fL Normal 6.2-12.0 [facility] Comment on above: Performed By: #### L 500.2500, L100.0100 ####[facility] [address] [place], [address] Platelets (Bld) [#/Vol] 285 10*3/uL Normal 150-450 [facility] Comment on above: Performed By: #### L 500.2500, L100.0100 ####[facility] [address] [place], [address] RBC (Bld) [#/Vol] 3.89 10*6/uL Low 4.6-6.2 [facility] Comment on above: Performed By: #### L 500.2500, L100.0100 ####[facility] [address] [place], [address] RDW SD 39.5 fl Normal 35.1-43.9 [facility] Comment on above: Performed By: #### L 500.2500, L100.0100 ####[facility] [address] [place], [place], [address] WBC (Bld) [#/Vol] 6.2 10*3/uL Normal 4.4-11.0 [facility] Comment on above: Performed By: #### L 500.2500, L100.0100 ####[facility] [address] [place], [address] Carbon dioxide, total [Moles /volume] in Central venous bloodOrdered By: Stevie Harrington on 11-07-2024 CO2 [Moles/Vol] 18.1 mmol/L Low 21.0-32.0 [facility] Chloride assayOrdered By: Brant Harrington on 11-07-2024 Chloride [Moles/Vol] 96 mmol/L Low 98-108 [facility] Electrocardiogram reportOrde red By: Adrian Flores on 11-07-2024 EKG study [facility] [address] [place] [address] 12 Lead EKG 11/07/24 0553 MR#: [id number] Acct: [id number] Name: JARED RAYMOND Rep #:[id number] : 1945 79 From: Adrian Flores MD [...] was found Confirmed by ADRIAN FLORES MD ([id number]), assignment editor ELIZ LOPEZ ([id number]) on 11/07/2024 1:45:42 PM Referred By: Confirmed By: ADRIAN FLORES MD 11/07/24 1345 Date _ Adrian Flores MD CC: [employer]-C Mariela Olson; Dr. Steven Ann MD; Dr. Stevie Harrington, DO ~ Signed [facility] Work Phone: Eosinophil percentageOrdered By: Stevie Harrington on 11-07-2024 Eosinophils/100 WBC (Bld) 1.3 % 0-5 [facility] Erythrocyte distribution wid th (RBC) [Ratio]Ordered By: Stevie Harrington on 11-07-2024 Erythrocyte distribution width (RBC) [Entitic vol] 39.5 fL 35.1-43.9 [facility] Erythrocyte distribution wid th ratioOrdered By: Stevie Harrington on 11-07-2024 Erythrocyte distribution width (RBC) [Ratio] 12.3 % 11.6-14.6 [facility] Erythrocyte distribution wid th standard deviationOrdered By: Stevie Harrington on 11-07-2024 Erythrocyte distribution width (RBC) [Ratio] 39.5 fl 35.1-43.9 [facility] Estimation of creatinine dunia aranceOrdered By: Stevie Harrington on 11-07-2024 Estimated Creatinine Clearance Calc 54.00 ml/min 50-250 [facility] GFR/1.73 sq M.predicted gregg g non-blacks MDRD (S/P/Bld) [Vol rate/Area]Ordered By: Stevie Harrington on 11-07-2024 Estimated GFR (MDRD) Non-Af Amer 74 >60 [facility] Comment on above: mL/min/1.73m2 CKD-EP I Creatinine Equation (2020) Glomerular filtration rate ( GFR) estimation/1.73 sq m using serum, plasma, or whole bOrdered By: Stevie Harrington on 11-07-2024 GFR/1.73 sq M.predicted among non-blacks MDRD (S/P/Bld) [Vol rate/Area] 74 mL/min/{1.73_m2} >60 [facility] Comment on above: mL/min/1.73m2 CKD-EP I Creatinine Equation (2020) Hematocrit Auto (Bld) [Volum e fraction]Ordered By: Stevie Harrington on 11-07-2024 Hematocrit (Bld) [Volume fraction] 34.0 % Low 40-54 [facility] Hemoglobin measurementOrdere d By: Stevie Harrington on 11-07-2024 Hemoglobin (Bld) [Mass/Vol] 11.9 g/dL Low 13.0-16.5 [facility] Immature granulocytes/100 WB C Auto (Bld)Ordered By: Stevie Harrington on 11-07-2024 Immature granulocytes/100 WBC (Bld) 0.500 % 0.0-0.9 [facility] Comment on above: IG% - Immature Granu locytes (promyelocytes, myelocytes and metamyelocytes) > 1% indicates that a LEFT SHIFT is Present. Lymphocytes Auto (Unsp spec) [#/Vol]Ordered By: Stevie Harrington on 11-07-2024 Lymphocytes (Bld) [#/Vol] 0.91 10*3/uL 0.83-4.51 [facility] Lymphocytes/100 WBC Auto (Un sp spec)Ordered By: Stevie Harrington on 11-07-2024 Lymphocytes/100 WBC (Bld) 14.8 % Low 19-41 [facility] MCV (mean corpuscular volume ) determinationOrdered By: Stevie Harrington on 11-07-2024 MCV (RBC) [Entitic vol] 87.4 fL 80-94 [facility] Mean corpuscular hemoglobin (MCH) determinationOrdered By: Stevie Harrington on 11-07-2024 MCH (RBC) [Entitic mass] 30.6 pg 27.0-32.0 [facility] Mean corpuscular hemoglobin concentration (MCHC) determinationOrdered By: Stevie Harrington on 11-07-2024 MCHC (RBC) [Mass/Vol] 35.0 g/dL 32-36 [facility] Mean platelet volume determi nationOrdered By: Stevie Harrington on 11-07-2024 Platelet mean volume (Bld) [Entitic vol] 9.3 fL 6.2-12.0 [facility] Monocyte percentageOrdered B y: Stevie Harrington on 11-07-2024 Monocytes/100 WBC (Bld) 12.5 % High 0-10 [facility] Neutrophil percentageOrdered By: Stevie Harrington on 11-07-2024 Neutrophils/100 WBC (Bld) 70.4 % High 47-70 [facility] Nucleated red blood cell per centageOrdered By: Stevie Harrington on 11-07-2024 Nucleated RBC/100 WBC (Bld) [Ratio] 0 % 0-5 [facility] Platelet countOrdered By: Brant Harrington on 11-07-2024 Platelets (Bld) [#/Vol] 285 10*3/uL 150-450 [facility] Potassium (Unsp spec) [Mass/ Vol]Ordered By: Stevie Harrington on 11-07-2024 Potassium [Moles/Vol] 3.8 mmol/L 3.3-5.1 [facility] Potassium measurement (mass/ volume)Ordered By: Stevie Harrington on 11-07-2024 Potassium (Unsp spec) [Mass/Vol] 3.8 mmol/L 3.3-5.1 [facility] RBC Auto (Bld) [#/Vol]Ordere d By: Stevie Harrington on 11-07-2024 RBC (Bld) [#/Vol] 3.89 10*6/uL Low 4.6-6.2 [facility] Serum creatinine measurement (mass/volume)Ordered By: Stevie Harrington on 11-07-2024 Creatinine [Mass/Vol] 1.02 mg/dL 0.70-1.20 [facility] Serum glucose measurement (m ass/volume)Ordered By: Stevie Harrington on 11-07-2024 Glucose [Mass/Vol] 92 mg/dL 70-99 [facility] Serum or plasma calcium shagufta urement (mass/volume)Ordered By: Stevie Harrington on 11-07-2024 Calcium [Mass/Vol] 8.6 mg/dL 7.6-11.0 [facility] Serum or plasma urea nitroge n measurement (mass/volume)Ordered By: Stevie Harrington on 11-07-2024 Urea nitrogen [Mass/Vol] 16 mg/dL 4-19 [facility] Sodium levelOrdered By: Stevie Harrington on 11-07-2024 Sodium [Moles/Vol] 128 mmol/L Low 133-145 [facility] White blood cell (WBC) count Ordered By: Stevie Harrington on 11-07-2024 WBC (Bld) [#/Vol] 6.2 10*3/uL 4.4-11.0 [facility] Bilirubin, totalOrdered By: Darrel Sanders on 11-06-2024 Bilirubin [Mass/Vol] 0.64 mg/dL 0.00-1.30 [facility] C. difficile DNA BLESSING+probe Q l (Unsp spec)Ordered By: Darrel Sanders on 11-06-2024 Clostridioides difficile (PCR) [facility] CBC W/Diff, Automatedon Absolute Lymph 0.59 X10 3/uL Low 0.83-4.51 [facility] Comment on above: Performed By: #### L 100.0100 ####[facility] [address] [place], [address] Absolute Neut 5.0 X10 3/uL Normal 2.0-7.7 [facility] Comment on above: Performed By: #### L 100.0100 ####[facility] [address] [place], [address] Basophils/100 WBC (Bld) 0.3 % Normal 0-1 [facility] Comment on above: Performed By: #### L 100.0100 ####[facility] [address] [place], [address] Eosinophils/100 WBC (Bld) 0.3 % Normal 0-5 [facility] Comment on above: Performed By: #### L 100.0100 ####[facility] [address] [place], [address] Erythrocyte distribution width (RBC) [Ratio] 12.3 % Normal 11.6-14.6 [facility] Comment on above: Performed By: #### L 100.0100 ####[facility] [address] [place], [address] Hematocrit (Bld) [Volume fraction] 33.9 % Low 40-54 [facility] Comment on above: Performed By: #### L 100.0100 ####[facility] [address] [place], [address] Hemoglobin (Bld) [Mass/Vol] 11.9 g/dL Low 13.0-16.5 [facility] Comment on above: Performed By: #### L 100.0100 ####[facility] [address] [place], [address] IG% 0.300 Normal 0.0-0.9 [facility] Comment on above: Result Comment: IG% - Immature Granulocytes (promyelocytes, myelocytes andmetamyelocytes) > 1% indicates that a LEFT SHIFT is Present. Performed By: #### L 100.0100 ####[facility] [address] [place], [address] Lymphocytes/100 WBC (Bld) 9.1 % Low 19-41 [facility] Comment on above: Performed By: #### L 100.0100 ####[facility] [address] [place], [address] MCH (RBC) [Entitic mass] 31.1 pg Normal 27.0-32.0 [facility] Comment on above: Performed By: #### L 100.0100 ####[facility] [address] [place], [address] MCHC (RBC) [Mass/Vol] 35.1 g/dL Normal 32-36 [facility] Comment on above: Performed By: #### L 100.0100 ####[facility] [address] [place], [address] MCV (RBC) [Entitic vol] 88.5 fL Normal 80-94 [facility] Comment on above: Performed By: #### L 100.0100 ####[facility] [address] [place], [address] Monocytes/100 WBC (Bld) 11.9 % High 0-10 [facility] Comment on above: Performed By: #### L 100.0100 ####[facility] [address] [place], [address] Neutrophils/100 WBC (Bld) 78.1 % High 47-70 [facility] Comment on above: Performed By: #### L 100.0100 ####[facility] [address] [place], [address] Nucleated RBC (Bld) [#/Vol] 0 10*3/uL Normal 0-5 [facility] Comment on above: Performed By: #### L 100.0100 ####[facility] [address] [place], [address] Platelet mean volume (Bld) [Entitic vol] 9.1 fL Normal 6.2-12.0 [facility] Comment on above: Performed By: #### L 100.0100 ####[facility] [address] [place], [address] Platelets (Bld) [#/Vol] 290 10*3/uL Normal 150-450 [facility] Comment on above: Performed By: #### L 100.0100 ####[facility] [address] [place], [address] RBC (Bld) [#/Vol] 3.83 10*6/uL Low 4.6-6.2 [facility] Comment on above: Performed By: #### L 100.0100 ####[facility] [address] [place], [address] RDW SD 39.8 fl Normal 35.1-43.9 [facility] Comment on above: Performed By: #### L 100.0100 ####[facility] [address] [place], [address] WBC (Bld) [#/Vol] 6.5 10*3/uL Normal 4.4-11.0 [facility] Comment on above: Performed By: #### L 100.0100 ####[facility] [address] [place], [address] Absolute Lymph 1.08 X10 3/uL Normal 0.83-4.51 [facility] Comment on above: Performed By: #### L 501.2300, L100.0100, L500.4050 ####[facility] [address] [place], [address] Absolute Neut 5.9 X10 3/uL Normal 2.0-7.7 [facility] Comment on above: Performed By: #### L 501.2300, L100.0100, L500.4050 ####[facility] [address] [place], [address] Basophils/100 WBC (Bld) 0.3 % Normal 0-1 [facility] Comment on above: Performed By: #### L 501.2300, L100.0100, L500.4050 ####[facility] [address] [place], [address] Eosinophils/100 WBC (Bld) 1.4 % Normal 0-5 [facility] Comment on above: Performed By: #### L 501.2300, L100.0100, L500.4050 ####[facility] [address] [place], [address] Erythrocyte distribution width (RBC) [Ratio] 12.2 % Normal 11.6-14.6 [facility] Comment on above: Performed By: #### L 501.2300, L100.0100, L500.4050 ####[facility] [address] [place], [address] Hematocrit (Bld) [Volume fraction] 35.2 % Low 40-54 [facility] Comment on above: Performed By: #### L 501.2300, L100.0100, L500.4050 ####[facility] [address] [place], [address] Hemoglobin (Bld) [Mass/Vol] 12.3 g/dL Low 13.0-16.5 [facility] Comment on above: Performed By: #### L 501.2300, L100.0100, L500.4050 ####[facility] [address] [place], [address] IG% 0.300 Normal 0.0-0.9 [facility] Comment on above: Result Comment: IG% - Immature Granulocytes (promyelocytes, myelocytes andmetamyelocytes) > 1% indicates that a LEFT SHIFT is Present. Performed By: #### L 501.2300, L100.0100, L500.4050 ####[facility] [address] [place], [address] Lymphocytes/100 WBC (Bld) 13.7 % Low 19-41 [facility] Comment on above: Performed By: #### L 501.2300, L100.0100, L500.4050 ####[facility] [address] [place], [address] MCH (RBC) [Entitic mass] 30.4 pg Normal 27.0-32.0 [facility] Comment on above: Performed By: #### L 501.2300, L100.0100, L500.4050 ####[facility] [address] [place], [address] MCHC (RBC) [Mass/Vol] 34.9 g/dL Normal 32-36 [facility] Comment on above: Performed By: #### L 501.2300, L100.0100, L500.4050 ####[facility] [address] [place], [address] MCV (RBC) [Entitic vol] 87.1 fL Normal 80-94 [facility] Comment on above: Performed By: #### L 501.2300, L100.0100, L500.4050 ####[facility] [address] [place], [address] Monocytes/100 WBC (Bld) 9.8 % Normal 0-10 [facility] Comment on above: Performed By: #### L 501.2300, L100.0100, L500.4050 ####[facility] [address] [place], [address] Neutrophils/100 WBC (Bld) 74.5 % High 47-70 [facility] Comment on above: Performed By: #### L 501.2300, L100.0100, L500.4050 ####[facility] [address] [place], [address] Nucleated RBC (Bld) [#/Vol] 0 10*3/uL Normal 0-5 [facility] Comment on above: Performed By: #### L 501.2300, L100.0100, L500.4050 ####[facility] [address] [place], [address] Platelet mean volume (Bld) [Entitic vol] 8.7 fL Normal 6.2-12.0 [facility] Comment on above: Performed By: #### L 501.2300, L100.0100, L500.4050 ####[facility] [address] [place], [address] Platelets (Bld) [#/Vol] 303 10*3/uL Normal 150-450 [facility] Comment on above: Performed By: #### L 501.2300, L100.0100, L500.4050 ####[facility] [address] [place], [address] RBC (Bld) [#/Vol] 4.04 10*6/uL Low 4.6-6.2 [facility] Comment on above: Performed By: #### L 501.2300, L100.0100, L500.4050 ####[facility] [address] [place], [address] RDW SD 39.1 fl Normal 35.1-43.9 [facility] Comment on above: Performed By: #### L 501.2300, L100.0100, L500.4050 ####[facility] [address] [place], [address] WBC (Bld) [#/Vol] 7.9 10*3/uL Normal 4.4-11.0 [facility] Comment on above: Performed By: #### L 501.2300, L100.0100, L500.4050 ####[facility] [address] [place], [address] CDIFF (PCR)on 11-06-2024 CDIFF Is the patient recei ving laxatives? N New/unexplained onset of 3 or more stools in past 24 hrs? Y 027 027 NAP1-B1 Presumptive Negative *for epidemiolologic???use C. Diff PCR Negative- No toxigenic C. Diff Detected Normal [facility] Comment on above: Performed By: #### M 100.0605, M100.6796, M100.637, M600.5000 ####[facility] [address] [place], [address] Calculated total iron bindin g capacityOrdered By: Darrel Sanders on 11-06-2024 Total Iron Binding Capacity 270 ug/dL 250-450 [facility] Clostridium difficile detect ion by polymerase chain reactionOrdered By: Darrel Sanders on 11-06-2024 C. difficile DNA BLESSING+probe Ql (Unsp spec) [facility] Colonoscopy Reporton 025 Colonoscopy Report Normal [facility] Comprehensive Metabolic Prof ilon 11-06-2024 Albumin [Mass/Vol] 3.9 g/dL Normal 3.4-4.8 [facility] Comment on above: Performed By: #### L 501.2300, L100.0100, L500.4050 ####[facility] [address] [place], [address] Albumin/Globulin [Mass ratio] 1.4 {ratio} Normal 0.9-2.4 [facility] Comment on above: Performed By: #### L 501.2300, L100.0100, L500.4050 ####[facility] [address] [place], [address] ALK PHOS 101 U/L Normal 40-129 [facility] Comment on above: Performed By: #### L 501.2300, L100.0100, L500.4050 ####[facility] [address] [place], [address] ALT [Catalytic activity/Vol] 14 U/L Normal <=46 [facility] Comment on above: Performed By: #### L 501.2300, L100.0100, L500.4050 ####[facility] [address] [place], [address] AST [Catalytic activity/Vol] 22 U/L Normal <=37 [facility] Comment on above: Performed By: #### L 501.2300, L100.0100, L500.4050 ####[facility] [address] [place], [address] Bilirubin [Mass/Vol] 0.64 mg/dL Normal 0.00-1.30 [facility] Comment on above: Performed By: #### L 501.2300, L100.0100, L500.4050 ####[facility] [address] [place], [address] BUN/CRE 14.4 RATIO Normal 10-20 [facility] Comment on above: Performed By: #### L 501.2300, L100.0100, L500.4050 ####[facility] [address] [place], [address] Calcium [Mass/Vol] 8.8 mg/dL Normal 7.6-11.0 [facility] Comment on above: Performed By: #### L 501.2300, L100.0100, L500.4050 ####[facility] [address] [place], [address] Chloride [Moles/Vol] 96 mmol/L Low 98-108 [facility] Comment on above: Performed By: #### L 501.2300, L100.0100, L500.4050 ####[facility] [address] [place], [address] CO2 [Moles/Vol] 21.7 mmol/L Normal 21.0-32.0 [facility] Comment on above: Performed By: #### L 501.2300, L100.0100, L500.4050 ####[facility] [address] [place], [address] Creatinine [Mass/Vol] 0.97 mg/dL Normal 0.70-1.20 [facility] Comment on above: Performed By: #### L 501.2300, L100.0100, L500.4050 ####[facility] [address] [place], [address] ECRCL 56.79 ml/min Normal 50-250 [facility] Comment on above: Performed By: #### L 501.2300, L100.0100, L500.4050 ####[facility] [address] [place], [address] GAP 12 Normal 5-15 [facility] Comment on above: Performed By: #### L 501.2300, L100.0100, L500.4050 ####[facility] [address] [place], [address] GFR/1.73 sq M.predicted among non-blacks MDRD (S/P/Bld) [Vol rate/Area] 79 mL/min/{1.73_m2} Normal >60 [facility] Comment on above: Result Comment: mL/m in/1.73m2 CKD-EPI Creatinine Equation (2020) Performed By: #### L 501.2300, L100.0100, L500.4050 ####[facility] [address] [place], [address] Globulin (S) [Mass/Vol] 2.8 g/dL Normal 2.2-4.2 [facility] Comment on above: Performed By: #### L 501.2300, L100.0100, L500.4050 ####[facility] [address] [place], [address] Glucose [Mass/Vol] 99 mg/dL Normal 70-99 [facility] Comment on above: Performed By: #### L 501.2300, L100.0100, L500.4050 ####[facility] [address] [place], [address] Potassium [Moles/Vol] 4.1 mmol/L Normal 3.3-5.1 [facility] Comment on above: Performed By: #### L 501.2300, L100.0100, L500.4050 ####[facility] [address] [place], [address] Sodium [Moles/Vol] 130 mmol/L Low 133-145 [facility] Comment on above: Performed By: #### L 501.2300, L100.0100, L500.4050 ####[facility] [address] [place], [address] T PROT 6.7 g/dL Normal 5.9-8.4 [facility] Comment on above: Performed By: #### L 501.2300, L100.0100, L500.4050 ####[facility] [address] [place], [address] Urea nitrogen [Mass/Vol] 14 mg/dL Normal 4-19 [facility] Comment on above: Performed By: #### L 501.2300, L100.0100, L500.4050 ####[facility] [address] [place], [address] ENTERIC PATHOGEN PANEL STOOL on 11-06-2024 EP PANEL Normal [facility] Comment on above: Performed By: #### M 100.0605, M100.6796, M100.637, M600.5000 ####[facility] [address] [place], [address] Emergency Department Summary on 11-06-2024 Emergency Department Summary Normal [facility] Ferritinon 11-06-2024 Ferritin [Mass/Vol] 138 ng/mL Normal 37-417 [facility] Comment on above: Performed By: #### L 501.9520, L503.6550, L503.0106, L503.6030, L501.7300 ####[facility] [address] [place], [address] H AND P Exam - Hospitaliston 11-06-2024 H&P Exam - Hospitalist Normal [facility] Iron (Unsp spec) [Mass/Mass] Ordered By: Darrel Sanders on 11-06-2024 Iron [Mass/Vol] 50 ug/dL Low 65-175 [facility] Iron measurement (mass/mass) Ordered By: Darrel Sanders on 11-06-2024 Iron (Unsp spec) [Mass/Mass] 50 ug/dL Low 65-175 [facility] Iron saturation [Mass fracti on]Ordered By: Darrel Sadners on 11-06-2024 Iron Saturation 19.0 % 9-55 [facility] Iron+Iron Binding Capacityon 11-06-2024 Iron [Mass/Vol] 50 ug/dL Low 65-175 [facility] Comment on above: Performed By: #### L 501.9520, L503.6550, L503.0106, L503.6030, L501.7300 ####[facility] [address] [place], [address] IRON SATURATION 19.0 Normal 9-55 [facility] Comment on above: Performed By: #### L 501.9520, L503.6550, L503.0106, L503.6030, L501.7300 ####[facility] [address] [place], [address] TIBC 270 ug/dL Normal 250-450 [facility] Comment on above: Performed By: #### L 501.9520, L503.6550, L503.0106, L503.6030, L501.7300 ####[facility] [address] [place], [address] UIBC 220 ug/dL Low 228-428 [facility] Comment on above: Performed By: #### L 501.9520, L503.6550, L503.0106, L503.6030, L501.7300 ####[facility] [address] [place], [address] L499.0042on 11-06-2024 Trop T High Sen 23 ng/L High <=22 [facility] Comment on above: Performed By: #### L 499.0042 ####[facility] [address] [place], [address] L499.0043on 11-06-2024 Trop T High Sen 19 ng/L Normal <=22 [facility] Comment on above: Performed By: #### L 499.0043 ####[facility] [address] [place], [address] L501.4021on 11-06-2024 Trop T High Sen 18 ng/L Normal <=22 [facility] Comment on above: Performed By: #### L 501.4021 ####[facility] [address] [place], [address] Laboratory - Chemistry and C hemistry - challengeOrdered By: Darrel Sanders on 11-06-2024 AST [Catalytic activity/Vol] 22 U/L <38 [facility] Lactoferrin IA Ql (Stl)Order ed By: Darrel Sanders on 11-06-2024 Stool Lactoferrin [facility] MR/CON.PCM.GIon 11-06-2024 MR/CON.PCM.GI Normal [facility] MR/POSTOP.ANEon 11-06-2024 MR/POSTOP.ANE Normal [facility] MR/VAHUTBBS5at 11-06-2024 MR/POSTOPAN2 Normal [facility] Magnesiumon 11-06-2024 Magnesium [Mass/Vol] 2.3 mg/dL High 1.5-2.2 [facility] Comment on above: Performed By: #### L 501.5200 ####[facility] [address] [place], [address] No Panel InformationOrdered By: Darrel Sanders on 11-06-2024 Unsaturated Iron Binding Capacity 220 ug/dL Low 228-428 [facility] 22 U/L <38 [facility] 220 ug/dL Low 228-428 [facility] Osmolality (U) [Osmolality]O rdered By: Darrel Sanders on 11-06-2024 Urine Osmolality 363 mOsm/KG >50 [facility] Comment on above: Normal Urine Referen ce Ranges Random: 50 - 1200 mOsm/kg H20 depending on fluid intake Random: >850 mOsm/kg after 12 hour fluid restriction 24 hour: ~300 - 900 mOsm/kg H2O Osmolality urOrdered By: Esdras Sanders on 11-06-2024 Osmolality (U) [Osmolality] 363 mOsm/KG >50 [facility] Comment on above: Normal Urine Referen ce Ranges Random: 50 - 1200 mOsm/kg H20 depending on fluid intake Random: >850 mOsm/kg after 12 hour fluid restriction 24 hour: ~300 - 900 mOsm/kg H2O Osmolality, Serumon 11-07-19 25 OSMOLALITY,SER 279 mOsm/KG Low 280-301 [facility] Comment on above: Performed By: #### L 501.9520, L503.6550, L503.0106, L503.6030, L501.7300 ####[facility] [address] [place], [address] Osmolality, Urineon 11-07-19 25 OSMOLALITY,UR 363 mOsm/KG Normal [facility] Comment on above: Result Comment: Norm al Urine Reference Ranges Random: 50 - 1200 mOsm/kg H20 depending on fluid intake Random: >850 mOsm/kg after 12 hour fluid restriction 24 hour: 300 - 900 mOsm/kg H2O Performed By: #### L 501.7400 ####[facility] [address] [place], [place], [address] Osmolality, serumOrdered By: Darrel Sanders on 11-06-2024 Serum Osmolality 279 mOsm/KG Low 280-301 [facility] Ova and parasitesOrdered By: Darrel Sanders on 11-06-2024 Ova and Parasites [facility] Phosphoruson 11-06-2024 Phosphate [Mass/Vol] 2.6 mg/dL Low 2.7-4.5 [facility] Comment on above: Performed By: #### L 501.2300, L100.0100, L500.4050 ####[facility] [address] [place], [place], [address] Serum globulin measurementOr dered By: Darrel Sanders on 11-06-2024 Globulin (S) [Mass/Vol] 2.8 g/dL 2.2-4.2 [facility] Serum or plasma alanine carrion otransferase (ALT) measurementOrdered By: Darrel Sanders on 11-06-2024 ALT [Catalytic activity/Vol] 14 U/L <47 [facility] Serum or plasma albumin shagufta urement (mass/volume)Ordered By: Darrel Sanders on 11-06-2024 Albumin [Mass/Vol] 3.9 g/dL 3.4-4.8 [facility] Serum or plasma albumin/glob ulin mass ratioOrdered By: Darrel Sanders on 11-06-2024 Albumin/Globulin [Mass ratio] 1.4 {ratio} 0.9-2.4 [facility] Serum or plasma alkaline airam sphatase measurementOrdered By: Darrel Sanders on 11-06-2024 ALP [Catalytic activity/Vol] 101 U/L 40-129 [facility] Serum or plasma ferritin francy surement (mass/volume)Ordered By: Darrel Sanders on 11-06-2024 Ferritin [Mass/Vol] 138 ng/mL 37-417 [facility] Serum or plasma iron saturat ion measurement (mass fraction)Ordered By: Darrel Sanders on 11-06-2024 Iron saturation [Mass fraction] 19.0 % 9-55 [facility] Serum phosphorus measurement Ordered By: Darrel Sanders on 11-06-2024 Phosphorus Level 2.6 mg/dL Low 2.7-4.5 [facility] Stool Lactoferrin/WBCon 04-0 WBCST Is the patient recei ving laxatives? N New/unexplained onset of 3 or more stools in past 24 hrs? Y Normal Reference Range = Negative Fecal WBC Lactoferrin A Positive: Fecal WBC Lactoferrin present A Normal [facility] Comment on above: Performed By: #### M 100.0605, M100.6796, M100.637, M600.5000 ####[facility] [address] [place], [address] Stool Occult Blood iFOBon STOB Positive Normal [facility] Comment on above: Performed By: #### B TS, L503.6005, L500.2500, M100.7900, L300.4310, L100.0100, L300.3900 ####[facility] [address] [place], [address] Stool enteric pathogen panel by probe and target amplification methodOrdered By: Darrel Sanders on 11-06-2024 Enteric Bacteriology [facility] Stool lactoferrin detection by immunoassayOrdered By: Darrel Sanders on 11-06-2024 Lactoferrin IA Ql (Stl) [facility] TSH DL <= 0.005 mIU/L QnOrde red By: Darrel Sanders on 11-06-2024 Thyroid Stimulating Hormone (TSH) 1.900 uIU/mL 0.300-4.200 [facility] TSH Qn 1.900 uIU/mL 0.300-4.200 [facility] Thyroid Stim Hormone (TSH)on 11-06-2024 TSH 1.900 uIU/mL Normal 0.300-4.200 [facility] Comment on above: Performed By: #### L 501.9520, L503.6550, L503.0106, L503.6030, L501.7300 ####[facility] [address] [place], [address] Total proteinOrdered By: Esdras Sanders on 11-06-2024 Protein [Mass/Vol] 6.7 g/dL 5.9-8.4 [facility] Troponin T.cardiac High sens itivity method [Mass/Vol]Ordered By: Darrel Sanders on 11-06-2024 Troponin T High Sensitivity 4 Hour 19 ng/L <22 [facility] Troponin T High Sensitivity 2 Hour 23 ng/L High <22 [facility] Troponin T High Sensitivity 18 ng/L <22 [facility] Troponin T.cardiac [Mass/vol ume] in Serum or Plasma by High sensitivity methodOrdered By: Darrel Sanders on 11-06-2024 Troponin T.cardiac High sensitivity method [Mass/Vol] 19 ng/L <22 [facility] Troponin T.cardiac High sensitivity method [Mass/Vol] 23 ng/L High <22 [facility] Troponin T.cardiac High sensitivity method [Mass/Vol] 18 ng/L <22 [facility] Vitamin B12on 11-06-2024 Cobalamin (Vitamin B12) [Mass/Vol] 790 pg/mL Normal 180-914 [facility] Comment on above: Performed By: #### L 501.9520, L503.6550, L503.0106, L503.6030, L501.7300 ####[facility] [address] [place], [address] Vitamin B12 ser/plasOrdered By: Darrel Sanders on 11-06-2024 Cobalamin (Vitamin B12) [Mass/Vol] 790 pg/mL 180-914 [facility] Absolute neutrophil countOrd ered By: Harrison Linares on 11-05-2024 Neutrophils (Bld) [#/Vol] 6.9 10*3/uL 2.0-7.7 [facility] Activated partial thrombopla stin time (aPTT) in platelet poor plasma by coagulation aOrdered By: Harrison Linares on 11-05-2024 aPTT Coag (PPP) [Time] 22.1 s Low 24.1-36.2 [facility] Anion gap in Serum or Plasma Ordered By: Harrison Linares on 11-05-2024 Anion gap [Moles/Vol] 12 mmol/L 12-13 [facility] BUN/creatinine ratioOrdered By: Harrison Linares on 11-05-2024 Urea nitrogen/Creatinine [Mass ratio] 15.4 mg/mg 05-20 [facility] Basic Metabolic Profile (BMP )on 11-05-2024 BUN/CRE 15.4 RATIO Normal 05-20 [facility] Comment on above: Performed By: #### B TS, L503.6005, L500.2500, M100.7900, L300.4310, L100.0100, L300.3900 ####[facility] [address] [place], [address] Calcium [Mass/Vol] 9.0 mg/dL Normal 7.6-11.0 [facility] Comment on above: Performed By: #### B TS, L503.6005, L500.2500, M100.7900, L300.4310, L100.0100, L300.3900 ####[facility] [address] [place], [address] Chloride [Moles/Vol] 90 mmol/L Low 98-108 [facility] Comment on above: Performed By: #### B TS, L503.6005, L500.2500, M100.7900, L300.4310, L100.0100, L300.3900 ####[facility] [address] [place], [address] CO2 [Moles/Vol] 23.8 mmol/L Normal 21.0-32.0 [facility] Comment on above: Performed By: #### B TS, L503.6005, L500.2500, M100.7900, L300.4310, L100.0100, L300.3900 ####[facility] [address] [place], [address] Creatinine [Mass/Vol] 0.92 mg/dL Normal 0.70-1.20 [facility] Comment on above: Performed By: #### B TS, L503.6005, L500.2500, M100.7900, L300.4310, L100.0100, L300.3900 ####[facility] [address] [place], [address] ECRCL 59.87 ml/min Normal 50-250 [facility] Comment on above: Performed By: #### B TS, L503.6005, L500.2500, M100.7900, L300.4310, L100.0100, L300.3900 ####[facility] [address] [place], [address] GAP 12 Normal 5-15 [facility] Comment on above: Performed By: #### B TS, L503.6005, L500.2500, M100.7900, L300.4310, L100.0100, L300.3900 ####[facility] [address] [place], [address] GFR/1.73 sq M.predicted among non-blacks MDRD (S/P/Bld) [Vol rate/Area] 84 mL/min/{1.73_m2} Normal >60 [facility] Comment on above: Result Comment: mL/m in/1.73m2 CKD-EPI Creatinine Equation (2020) Performed By: #### B TS, L503.6005, L500.2500, M100.7900, L300.4310, L100.0100, L300.3900 ####[facility] [address] [place], [address] Glucose [Mass/Vol] 110 mg/dL High 70-99 [facility] Comment on above: Performed By: #### B TS, L503.6005, L500.2500, M100.7900, L300.4310, L100.0100, L300.3900 ####[facility] [address] [place], [address] Potassium [Moles/Vol] 4.0 mmol/L Normal 3.3-5.1 [facility] Comment on above: Performed By: #### B TS, L503.6005, L500.2500, M100.7900, L300.4310, L100.0100, L300.3900 ####[facility] [address] [place], [address] Sodium [Moles/Vol] 126 mmol/L Low 133-145 [facility] Comment on above: Performed By: #### B TS, L503.6005, L500.2500, M100.7900, L300.4310, L100.0100, L300.3900 ####[facility] [address] [place], [address] Urea nitrogen [Mass/Vol] 14 mg/dL Normal 4-19 [facility] Comment on above: Performed By: #### B TS, L503.6005, L500.2500, M100.7900, L300.4310, L100.0100, L300.3900 ####[facility] [address] [place], [address] Basophil percentageOrdered B y: Harrison Linares on 11-05-2024 Basophils/100 WBC (Bld) 0.2 % 0-1 [facility] CBC W/Diff, Automatedon Absolute Lymph 1.16 X10 3/uL Normal 0.83-4.51 [facility] Comment on above: Order Comment: REDRA W. PREVIOUS SPECIMEN REJECTED DUE TOCLOTTED. 11/05/242304 Quintin R Cardenas. Performed By: #### L 100.0100 ####[facility] [address] [place], [address] Absolute Neut 6.9 X10 3/uL Normal 2.0-7.7 [facility] Comment on above: Order Comment: REDRA W. PREVIOUS SPECIMEN REJECTED DUE TOCLOTTED. 11/05/242304 Quintin R Cardenas. Performed By: #### L 100.0100 ####[facility] [address] [place], [address] Basophils/100 WBC (Bld) 0.2 % Normal 0-1 [facility] Comment on above: Order Comment: REDRA W. PREVIOUS SPECIMEN REJECTED DUE TOCLOTTED. 11/05/242304 Quintin R Cardenas. Performed By: #### L 100.0100 ####[facility] [address] [place], [address] Eosinophils/100 WBC (Bld) 0.6 % Normal 0-5 [facility] Comment on above: Order Comment: REDRA W. PREVIOUS SPECIMEN REJECTED DUE TOCLOTTED. 11/05/242304 Quintin R Cardenas. Performed By: #### L 100.0100 ####[facility] [address] [place], [address] Erythrocyte distribution width (RBC) [Ratio] 12.2 % Normal 11.6-14.6 [facility] Comment on above: Order Comment: REDRA W. PREVIOUS SPECIMEN REJECTED DUE TOCLOTTED. 11/05/242304 Quintin R Cardenas. Performed By: #### L 100.0100 ####[facility] [address] [place], [address] Hematocrit (Bld) [Volume fraction] 32.9 % Low 40-54 [facility] Comment on above: Order Comment: REDRA W. PREVIOUS SPECIMEN REJECTED DUE TOCLOTTED. 11/05/242304 Quintin R Cardenas. Performed By: #### L 100.0100 ####[facility] [address] [place], [address] Hemoglobin (Bld) [Mass/Vol] 11.5 g/dL Low 13.0-16.5 [facility] Comment on above: Order Comment: REDRA W. PREVIOUS SPECIMEN REJECTED DUE TOCLOTTED. 11/05/242304 Quintin R Cardenas. Performed By: #### L 100.0100 ####[facility] [address] [place], [address] IG% 0.600 Normal 0.0-0.9 [facility] Comment on above: Order Comment: REDRA W. PREVIOUS SPECIMEN REJECTED DUE TOCLOTTED. 11/05/242304 Quintin R Cardenas. Result Comment: IG% - Immature Granulocytes (promyelocytes, myelocytes andmetamyelocytes) > 1% indicates that a LEFT SHIFT is Present. Performed By: #### L 100.0100 ####[facility] [address] [place], [address] Lymphocytes/100 WBC (Bld) 12.9 % Low 19-41 [facility] Comment on above: Order Comment: REDRA W. PREVIOUS SPECIMEN REJECTED DUE TOCLOTTED. 11/05/242304 Quintin R Cardenas. Performed By: #### L 100.0100 ####[facility] [address] [place], [address] MCH (RBC) [Entitic mass] 30.5 pg Normal 27.0-32.0 [facility] Comment on above: Order Comment: REDRA W. PREVIOUS SPECIMEN REJECTED DUE TOCLOTTED. 11/05/242304 Quintin R Cardenas. Performed By: #### L 100.0100 ####[facility] [address] [place], [address] MCHC (RBC) [Mass/Vol] 35.0 g/dL Normal 32-36 [facility] Comment on above: Order Comment: REDRA W. PREVIOUS SPECIMEN REJECTED DUE TOCLOTTED. 11/05/242304 Quintin R Cardenas. Performed By: #### L 100.0100 ####[facility] [address] [place], [address] MCV (RBC) [Entitic vol] 87.3 fL Normal 80-94 [facility] Comment on above: Order Comment: REDRA W. PREVIOUS SPECIMEN REJECTED DUE TOCLOTTED. 11/05/242304 Quintin R Cardenas. Performed By: #### L 100.0100 ####[facility] [address] [place], [address] Monocytes/100 WBC (Bld) 8.9 % Normal 0-10 [facility] Comment on above: Order Comment: REDRA W. PREVIOUS SPECIMEN REJECTED DUE TOCLOTTED. 11/05/242304 Quintin R Cardenas. Performed By: #### L 100.0100 ####[facility] [address] [place], [address] Neutrophils/100 WBC (Bld) 76.8 % High 47-70 [facility] Comment on above: Order Comment: REDRA W. PREVIOUS SPECIMEN REJECTED DUE TOCLOTTED. 11/05/242304 Quintin R Cardenas. Performed By: #### L 100.0100 ####[facility] [address] [place], [address] Nucleated RBC (Bld) [#/Vol] 0 10*3/uL Normal 0-5 [facility] Comment on above: Order Comment: REDRA W. PREVIOUS SPECIMEN REJECTED DUE TOCLOTTED. 11/05/242304 Quintin R Cardenas. Performed By: #### L 100.0100 ####[facility] [address] [place], [address] Platelet mean volume (Bld) [Entitic vol] 8.7 fL Normal 6.2-12.0 [facility] Comment on above: Order Comment: REDRA W. PREVIOUS SPECIMEN REJECTED DUE TOCLOTTED. 11/05/242304 Quintin R Cardenas. Performed By: #### L 100.0100 ####[facility] [address] [place], [address] Platelets (Bld) [#/Vol] 274 10*3/uL Normal 150-450 [facility] Comment on above: Order Comment: REDRA W. PREVIOUS SPECIMEN REJECTED DUE TOCLOTTED. 11/05/242304 Quintin R Cardenas. Performed By: #### L 100.0100 ####[facility] [address] [place], [address] RBC (Bld) [#/Vol] 3.77 10*6/uL Low 4.6-6.2 [facility] Comment on above: Order Comment: REDRA W. PREVIOUS SPECIMEN REJECTED DUE TOCLOTTED. 11/05/242304 Quintin R Cardenas. Performed By: #### L 100.0100 ####[facility] [address] [place], [address] RDW SD 39.0 fl Normal 35.1-43.9 [facility] Comment on above: Order Comment: REDRA W. PREVIOUS SPECIMEN REJECTED DUE TOCLOTTED. 11/05/242304 Quintin R Cardenas. Performed By: #### L 100.0100 ####[facility] [address] [place], [address] WBC (Bld) [#/Vol] 9.0 10*3/uL Normal 4.4-11.0 [facility] Comment on above: Order Comment: REDRA W. PREVIOUS SPECIMEN REJECTED DUE TOCLOTTED. 11/05/242304 Quintin R Cardenas. Performed By: #### L 100.0100 ####[facility] [address] [place], [address] Absolute Neut Normal 2.0-7.7 [facility] Comment on above: Result Comment: This specimen has been REJECTED due to Laboratory criteria:Clotted.CARGABRITE has been notified of need of recollection.11/05/242304 Quintin R Cardenas Performed By: #### B TS, L503.6005, L500.2500, M100.7900, L300.4310, L100.0100, L300.3900 ####[facility] [address] [place], [address] HCT Normal 40-54 [facility] Comment on above: Result Comment: This specimen has been REJECTED due to Laboratory criteria:Clotted.CARGABRITE has been notified of need of recollection.11/05/242304 Quintin R Cardenas Performed By: #### B TS, L503.6005, L500.2500, M100.7900, L300.4310, L100.0100, L300.3900 ####[facility] [address] [place], [address] HGB Normal 13.0-16.5 [facility] Comment on above: Result Comment: This specimen has been REJECTED due to Laboratory criteria:Clotted.CARGABRITE has been notified of need of recollection.11/05/242304 Quintin R Cardenas Performed By: #### B TS, L503.6005, L500.2500, M100.7900, L300.4310, L100.0100, L300.3900 ####[facility] [address] [place], [address] MCH Normal 27.0-32.0 [facility] Comment on above: Result Comment: This specimen has been REJECTED due to Laboratory criteria:Clotted.CARGABRITE has been notified of need of recollection.11/05/242304 Quintin R Cardenas Performed By: #### B TS, L503.6005, L500.2500, M100.7900, L300.4310, L100.0100, L300.3900 ####[facility] [address] [place], [address] MCHC Normal 32-36 [facility] Comment on above: Result Comment: This specimen has been REJECTED due to Laboratory criteria:Clotted.CARGABRITE has been notified of need of recollection.11/05/242304 Quintin R Cardenas Performed By: #### B TS, L503.6005, L500.2500, M100.7900, L300.4310, L100.0100, L300.3900 ####[facility] [address] [place], [address] MCV Normal 80-94 [facility] Comment on above: Result Comment: This specimen has been REJECTED due to Laboratory criteria:Clotted.CARGABRITE has been notified of need of recollection.11/05/242304 Quintin R Cardenas Performed By: #### Marco TS, L503.6005, L500.2500, M100.7900, L300.4310, L100.0100, L300.3900 ####[facility] [address] [place], [address] NEUT% Normal 47-70 [facility] Comment on above: Result Comment: This specimen has been REJECTED due to Laboratory criteria:Clotted.CARGABRITE has been notified of need of recollection.11/05/242304 Quintin R Cardenas Performed By: #### B TS, L503.6005, L500.2500, M100.7900, L300.4310, L100.0100, L300.3900 ####[facility] [address] [place], [address] PLT Normal 150-450 [facility] Comment on above: Result Comment: This specimen has been REJECTED due to Laboratory criteria:Clotted.CARGABRITE has been notified of need of recollection.11/05/242304 Quintin R Cardenas Performed By: #### B TS, L503.6005, L500.2500, M100.7900, L300.4310, L100.0100, L300.3900 ####[facility] [address] [place], [place], [address] RBC Normal 4.6-6.2 [facility] Comment on above: Result Comment: This specimen has been REJECTED due to Laboratory criteria:Clotted.CARGABRITE has been notified of need of recollection.11/05/242304 Quintin R Cardenas Performed By: #### B TS, L503.6005, L500.2500, M100.7900, L300.4310, L100.0100, L300.3900 ####[facility] [address] [place], [place], [address] RDW CV Normal 11.6-14.6 [facility] Comment on above: Result Comment: This specimen has been REJECTED due to Laboratory criteria:Clotted.CARGABRITE has been notified of need of recollection.11/05/242304 Quintin R Cardenas Performed By: #### B TS, L503.6005, L500.2500, M100.7900, L300.4310, L100.0100, L300.3900 ####[facility] [address] [place], [place], [address] RDW SD Normal 35.1-43.9 [facility] Comment on above: Result Comment: This specimen has been REJECTED due to Laboratory criteria:Clotted.CARGABRITE has been notified of need of recollection.11/05/242304 Quintin R Cardenas Performed By: #### B TS, L503.6005, L500.2500, M100.7900, L300.4310, L100.0100, L300.3900 ####[facility] [address] [place], [place], [address] WBC Normal 4.4-11.0 [facility] Comment on above: Result Comment: This specimen has been REJECTED due to Laboratory criteria:Clotted.DEIRDRE has been notified of need of recollection.11/05/24 2305 Quintin R Cardenas Performed By: #### B TS, L503.6005, L500.2500, M100.7900, L300.4310, L100.0100, L300.3900 ####[facility] [address] [place], [place], [address] CTA Abd/Pelvis W/WO Contrast on 11-05-2024 CTA Abd/Pelvis W/WO Contrast Normal [facility] Carbon dioxide, total [Moles /volume] in Central venous bloodOrdered By: Harrison Linares on 11-05-2024 CO2 [Moles/Vol] 23.8 mmol/L 21.0-32.0 [facility] Chloride assayOrdered By: Erica Linares on 11-05-2024 Chloride [Moles/Vol] 90 mmol/L Low 98-108 [facility] Eosinophil percentageOrdered By: Harrison Linares on 11-05-2024 Eosinophils/100 WBC (Bld) 0.6 % 0-5 [facility] Erythrocyte distribution wid th (RBC) [Ratio]Ordered By: Harrison Linares on 11-05-2024 Erythrocyte distribution width (RBC) [Entitic vol] 39.0 fL 35.1-43.9 [facility] Erythrocyte distribution wid th ratioOrdered By: Harrison Linares on 11-05-2024 Erythrocyte distribution width (RBC) [Ratio] 12.2 % 11.6-14.6 [facility] Estimation of creatinine dunia aranceOrdered By: Harrison Linares on 11-05-2024 Estimated Creatinine Clearance Calc 59.87 ml/min 50-250 [facility] GFR/1.73 sq M.predicted gregg g non-blacks MDRD (S/P/Bld) [Vol rate/Area]Ordered By: Harrison Linares on 11-05-2024 Estimated GFR (MDRD) Non-Af Amer 84 >60 [facility] Comment on above: mL/min/1.73m2 CKD-EP I Creatinine Equation (2020) Hematocrit Auto (Bld) [Volum e fraction]Ordered By: Harrison Linares on 11-05-2024 Hematocrit (Bld) [Volume fraction] 32.9 % Low 40-54 [facility] Hemoglobin measurementOrdere d By: Harrison Linares on 11-05-2024 Hemoglobin (Bld) [Mass/Vol] 11.5 g/dL Low 13.0-16.5 [facility] Immature granulocytes/100 WB C Auto (Bld)Ordered By: Harrison Linares on 11-05-2024 Immature granulocytes/100 WBC (Bld) 0.600 % 0.0-0.9 [facility] Comment on above: IG% - Immature Granu locytes (promyelocytes, myelocytes and metamyelocytes) > 1% indicates that a LEFT SHIFT is Present. International normalized rat io (INR) calculationOrdered By: Harrison Linares on 11-05-2024 INR Coag (Bld) [Relative time] 0.9 {INR} [facility] Lactic Acidon 11-05-2024 Lactate [Moles/Vol] mmol/L Normal 0.0-2.0 [facility] Comment on above: Order Comment: Y Performed By: #### B TS, L503.6005, L500.2500, M100.7900, L300.4310, L100.0100, L300.3900 ####[facility] [address] [place], [place], [id number] Lactic acid measurementOrder ed By: Harrison Linares on 11-05-2024 Lactate [Moles/Vol] mmol/L 0.0-2.0 [facility] Lower GI hemoglobin IA Ql (S tl)Ordered By: Harrison Linares on 11-05-2024 Stool Occult Blood (EDINSON) Positive Abnormal [facility] Lymphocytes Auto (Unsp spec) [#/Vol]Ordered By: Harrison Linares on 11-05-2024 Lymphocytes (Bld) [#/Vol] 1.16 10*3/uL 0.83-4.51 [facility] Lymphocytes/100 WBC Auto (Un sp spec)Ordered By: Harrison Linares on 11-05-2024 Lymphocytes/100 WBC (Bld) 12.9 % Low 19-41 [facility] MCV (mean corpuscular volume ) determinationOrdered By: Harrison Linares on 11-05-2024 MCV (RBC) [Entitic vol] 87.3 fL 80-94 [facility] Magnesium (Unsp spec) [Mass/ Vol]Ordered By: Darrel Sanders on 11-05-2024 Magnesium [Mass/Vol] 2.3 mg/dL High 1.5-2.2 [facility] Magnesium measurement (mass/ volume)Ordered By: Darrel Sanders on 11-05-2024 Magnesium (Unsp spec) [Mass/Vol] 2.3 mg/dL High 1.5-2.2 [facility] Mean corpuscular hemoglobin (MCH) determinationOrdered By: Harrison Linares on 11-05-2024 MCH (RBC) [Entitic mass] 30.5 pg 27.0-32.0 [facility] Mean corpuscular hemoglobin concentration (MCHC) determinationOrdered By: Harrison Linares on 11-05-2024 MCHC (RBC) [Mass/Vol] 35.0 g/dL 32-36 [facility] Mean platelet volume determi nationOrdered By: Harrison Linares on 11-05-2024 Platelet mean volume (Bld) [Entitic vol] 8.7 fL 6.2-12.0 [facility] Monocyte percentageOrdered B y: Harrison Linares on 11-05-2024 Monocytes/100 WBC (Bld) 8.9 % 0-10 [facility] Neutrophil percentageOrdered By: Harrison Linares on 11-05-2024 Neutrophils/100 WBC (Bld) 76.8 % High 47-70 [facility] [facility] Nucleated red blood cell per centageOrdered By: Harrison Linares on 11-05-2024 Nucleated RBC/100 WBC (Bld) [Ratio] 0 % 0-5 [facility] Partial Thromboplast Timeon 11-05-2024 aPTT Coag (Bld) [Time] 22.1 s Low 24.1-36.2 [facility] Comment on above: Performed By: #### B TS, L503.6005, L500.2500, M100.7900, L300.4310, L100.0100, L300.3900 ####[facility] [address] [place], [address] Platelet countOrdered By: Erica Linares on 11-05-2024 Platelets (Bld) [#/Vol] 274 10*3/uL 150-450 [facility] Potassium (Unsp spec) [Mass/ Vol]Ordered By: Harrison Linares on 11-05-2024 Potassium [Moles/Vol] 4.0 mmol/L 3.3-5.1 [facility] Prothrombin Time w/INRon INR Coag (PPP) [Relative time] 0.9 {INR} Normal [facility] Comment on above: Performed By: #### B TS, L503.6005, L500.2500, M100.7900, L300.4310, L100.0100, L300.3900 ####[facility] [address] [place], [address] PT Coag (PPP) [Time] 12.2 s Normal 11.7-14.9 [facility] Comment on above: Performed By: #### B TS, L503.6005, L500.2500, M100.7900, L300.4310, L100.0100, L300.3900 ####[facility] [address] [place], [address] Prothrombin timeOrdered By: Harrison Linares on 11-05-2024 PT Coag (PPP) [Time] 12.2 s 11.7-14.9 [facility] RBC Auto (Bld) [#/Vol]Ordere d By: Harrison Linares on 11-05-2024 RBC (Bld) [#/Vol] 3.77 10*6/uL Low 4.6-6.2 [facility] Serum creatinine measurement (mass/volume)Ordered By: Harrison Linares on 11-05-2024 Creatinine [Mass/Vol] 0.92 mg/dL 0.70-1.20 [facility] Serum glucose measurement (m ass/volume)Ordered By: Harrison Linares on 11-05-2024 Glucose [Mass/Vol] 110 mg/dL High 70-99 [facility] Serum or plasma calcium shagufta urement (mass/volume)Ordered By: Harrison Linares on 11-05-2024 Calcium [Mass/Vol] 9.0 mg/dL 7.6-11.0 [facility] Serum or plasma urea nitroge n measurement (mass/volume)Ordered By: Harrison Linares on 11-05-2024 Urea nitrogen [Mass/Vol] 14 mg/dL 4-19 [facility] Sodium levelOrdered By: Dylan Linares on 11-05-2024 Sodium [Moles/Vol] 126 mmol/L Low 133-145 [facility] Stool gastrointestinal hemog lobin detection by immunologic methodOrdered By: Harrison Linares on 11-05-2024 Lower GI hemoglobin IA Ql (Stl) Positive Abnormal [facility] Type AND Screenon 11-05-2024 ABO and Rh group Nom (Bld) Blood group O Rh(D) positive Normal [facility] Comment on above: Order Comment: HGI Performed By: #### B TS, L503.6005, L500.2500, M100.7900, L300.4310, L100.0100, L300.3900 ####[facility] [address] [place], [place], [id number] White blood cell (WBC) count Ordered By: Harrison Linares on 11-05-2024 WBC (Bld) [#/Vol] 9.0 10*3/uL 4.4-11.0 [facility] aPTT Coag (PPP) [Time]Ordere d By: Harrison Linares on 11-05-2024 aPTT Coag (Bld) [Time] 22.1 s Low 24.1-36.2 [facility] CNPNon 11-02-2024 CNPN Telephone (HEMAWS) -- CHRISJARED Kaitlin ([id number]) 1945 M Date Time Provider Department 11/02/24 PAPI HERNANDEZ During your visit today, we recorded the following information about you: Filomena Rodrigues 11/02/2024 2:33 PM Signed Patient and his daughter stopped in to talk to Jolynn Frias. 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 Please call patients daughter Teresa [phone] Allergies As of Date: 11/02/2024 (No Known Allergies) Date Reviewed: 05/05/2020 Reviewed by: Caro Mo (Rn), RN - Fully Assessed Reason for Visit: Patient Question [6127] Prescriptions as of 01/12/2025 - amLODIPine (NORVASC) [...] of Hemorrhage [*03/23/2010 Coronary artery disease involving [place] kern*07/18/2019 History of varicose veins [Z86.79] 07/18/2019 Chest pain, unspecified [R07.9] 07/18/2019 History of CVA (cerebrovascular accident) [Z86.*07/18/2019 Discharge planning issues [Z75.8] 07/18/2019 Preop testing [Z01.818] 07/18/2019 On mechanically assisted ventilation (HCC) [Z99*07/19/2019 07/20/2019 Pain, postoperative, acute [G89.18] 07/19/2019 Stress hyperglycemia [R73.9] 07/19/2019 07/21/2019 Atelectasis [J98.11] 07/20/2019 Transition of care performed with sharing of cl*07/21/2019 Encounter Status:Closed by FILOMENA RODRIGUES on 01/12/25 Normal [facility] Oncology Visit Reporton 04- Oncology Visit Report Normal [facility] Carcinoembryonic Antigenon 0 - CEA 25.2 ng/mL High 0.0-4.7 [facility] Comment on above: Order Comment: ADD O N TO BW-ALREADY IN LAB Result Comment: Nons mokers <3.9 Smokers <5.6[employer] Electrochemiluminescence Immunoassay(ECLIA)Values obtained with different assay methods or kitscannot be used interchangeably. Results cannot beinterpreted as absolute evidence of the presence orabsence of malignant disease.Performed at: [employer] [address] Director: Jian Paredes PhD, Phone: [phone] Performed By: #### L 1506.3203 ####[facility] [address] [place], [place], [id number] Abdomen/Pelvis W IV Cont ONL Yon 10-24-2024 Abdomen/Pelvis W IV Cont ONLY Normal [facility] Absolute lymphocyte countOrd ered By: Jerry Hightower on 10-24-2024 Lymphocytes Auto (Unsp spec) [#/Vol] 1.10 10*3/uL 0.83-4.51 [facility] Absolute lymphocyte countOrd ered By: Papi Hernandez on 10-24-2024 Lymphocytes Auto (Unsp spec) [#/Vol] 1.26 10*3/uL 0.83-4.51 [facility] Absolute neutrophil countOrd ered By: Jerry Hightower on 10-24-2024 Neutrophils (Bld) [#/Vol] 6.7 10*3/uL 2.0-7.7 [facility] Absolute neutrophil countOrd ered By: Papi Hernandez on 10-24-2024 Neutrophils (Bld) [#/Vol] 6.5 10*3/uL 2.0-7.7 [facility] Anion gap in Serum or Plasma Ordered By: Jerry Hightower on 10-24-2024 Anion gap [Moles/Vol] 11 mmol/L 12-13 [facility] Anion gap in Serum or Plasma Ordered By: Papi Hernandez on 10-24-2024 Anion gap [Moles/Vol] 9 mmol/L 12-13 [facility] Automated lymphocyte count a s percentage of total leukocytesOrdered By: Jerry Hightower on 10-24-2024 Lymphocytes/100 WBC Auto (Unsp spec) 12.7 % Low [facility] Automated lymphocyte count a s percentage of total leukocytesOrdered By: Papi Hernandez on 10-24-2024 Lymphocytes/100 WBC Auto (Unsp spec) 14.4 % Low [facility] BUN/creatinine ratioOrdered By: Jerry Hightower on 10-24-2024 Urea nitrogen/Creatinine [Mass ratio] 11.6 mg/mg 05-20 [facility] BUN/creatinine ratioOrdered By: Papi Hernandez on 10-24-2024 Urea nitrogen/Creatinine [Mass ratio] 12.0 mg/mg 05-20 [facility] Basophil percentageOrdered B y: Jerry Hightower on 10-24-2024 Basophils/100 WBC (Bld) 0.3 % 0-1 [facility] Basophil percentageOrdered B y: Papi Hernandez on 10-24-2024 Basophils/100 WBC (Bld) 0.3 % 0-1 [facility] Bilirubin Test strip Ql (U)O rdered By: Jerry Hightower on 10-24-2024 Bilirubin Ql (U) Negative Negative [facility] Bilirubin, totalOrdered By: Jerry Hightower on 10-24-2024 Bilirubin [Mass/Vol] 0.55 mg/dL 0.00-1.30 [facility] Bilirubin, totalOrdered By: Papi Hernandez on 10-24-2024 Bilirubin [Mass/Vol] 0.50 mg/dL 0.00-1.30 [facility] CBC W/Diff, Automatedon 09-30 Absolute Lymph 1.10 X10 3/uL Normal 0.83-4.51 [facility] Comment on above: Performed By: #### L 500.4050, L501.2450, L100.0100, L503.6005 ####[facility] [address] [place], [address] Absolute Neut 6.7 X10 3/uL Normal 2.0-7.7 [facility] Comment on above: Performed By: #### L 500.4050, L501.2450, L100.0100, L503.6005 ####[facility] [address] [place], [address] Basophils/100 WBC (Bld) 0.3 % Normal 0-1 [facility] Comment on above: Performed By: #### L 500.4050, L501.2450, L100.0100, L503.6005 ####[facility] [address] [place], [address] Eosinophils/100 WBC (Bld) 1.0 % Normal 0-5 [facility] Comment on above: Performed By: #### L 500.4050, L501.2450, L100.0100, L503.6005 ####[facility] [address] [place], [address] Erythrocyte distribution width (RBC) [Ratio] 12.4 % Normal 11.6-14.6 [facility] Comment on above: Performed By: #### L 500.4050, L501.2450, L100.0100, L503.6005 ####[facility] [address] [place], [address] Hematocrit (Bld) [Volume fraction] 37.0 % Low 40-54 [facility] Comment on above: Performed By: #### L 500.4050, L501.2450, L100.0100, L503.6005 ####[facility] [address] [place], [address] Hemoglobin (Bld) [Mass/Vol] 13.1 g/dL Normal 13.0-16.5 [facility] Comment on above: Performed By: #### L 500.4050, L501.2450, L100.0100, L503.6005 ####[facility] [address] [place], [address] IG% 0.500 Normal 0.0-0.9 [facility] Comment on above: Result Comment: IG% - Immature Granulocytes (promyelocytes, myelocytes andmetamyelocytes) > 1% indicates that a LEFT SHIFT is Present. Performed By: #### L 500.4050, L501.2450, L100.0100, L503.6005 ####[facility] [address] [place], [address] Lymphocytes/100 WBC (Bld) 12.7 % Low 19-41 [facility] Comment on above: Performed By: #### L 500.4050, L501.2450, L100.0100, L503.6005 ####[facility] [address] [place], [address] MCH (RBC) [Entitic mass] 30.8 pg Normal 27.0-32.0 [facility] Comment on above: Performed By: #### L 500.4050, L501.2450, L100.0100, L503.6005 ####[facility] [address] [place], [address] MCHC (RBC) [Mass/Vol] 35.4 g/dL Normal 32-36 [facility] Comment on above: Performed By: #### L 500.4050, L501.2450, L100.0100, L503.6005 ####[facility] [address] [place], [address] MCV (RBC) [Entitic vol] 87.1 fL Normal 80-94 [facility] Comment on above: Performed By: #### L 500.4050, L501.2450, L100.0100, L503.6005 ####[facility] [address] [place], [address] Monocytes/100 WBC (Bld) 8.4 % Normal 0-10 [facility] Comment on above: Performed By: #### L 500.4050, L501.2450, L100.0100, L503.6005 ####[facility] [address] [place], [address] Neutrophils/100 WBC (Bld) 77.1 % High 47-70 [facility] Comment on above: Performed By: #### L 500.4050, L501.2450, L100.0100, L503.6005 ####[facility] [address] [place], [address] Nucleated RBC (Bld) [#/Vol] 0 10*3/uL Normal 0-5 [facility] Comment on above: Performed By: #### L 500.4050, L501.2450, L100.0100, L503.6005 ####[facility] [address] [place], [address] Platelet mean volume (Bld) [Entitic vol] 9.0 fL Normal 6.2-12.0 [facility] Comment on above: Performed By: #### L 500.4050, L501.2450, L100.0100, L503.6005 ####[facility] [address] [place], [address] Platelets (Bld) [#/Vol] 307 10*3/uL Normal 150-450 [facility] Comment on above: Performed By: #### L 500.4050, L501.2450, L100.0100, L503.6005 ####[facility] [address] [place], [address] RBC (Bld) [#/Vol] 4.25 10*6/uL Low 4.6-6.2 [facility] Comment on above: Performed By: #### L 500.4050, L501.2450, L100.0100, L503.6005 ####[facility] [address] [place], [address] RDW SD 39.6 fl Normal 35.1-43.9 [facility] Comment on above: Performed By: #### L 500.4050, L501.2450, L100.0100, L503.6005 ####[facility] [address] [place], [address] WBC (Bld) [#/Vol] 8.7 10*3/uL Normal 4.4-11.0 [facility] Comment on above: Performed By: #### L 500.4050, L501.2450, L100.0100, L503.6005 ####[facility] [address] [place], [address] Absolute Lymph 1.26 X10 3/uL Normal 0.83-4.51 [facility] Comment on above: Performed By: #### L 900.0098, L504.2610, L100.0100, L500.4050 ####[facility] [address] [place], [address] Absolute Neut 6.5 X10 3/uL Normal 2.0-7.7 [facility] Comment on above: Performed By: #### L 900.0098, L504.2610, L100.0100, L500.4050 ####[facility] [address] [place], [address] Basophils/100 WBC (Bld) 0.3 % Normal 0-1 [facility] Comment on above: Performed By: #### L 900.0098, L504.2610, L100.0100, L500.4050 ####[facility] [address] [place], [address] Eosinophils/100 WBC (Bld) 1.6 % Normal 0-5 [facility] Comment on above: Performed By: #### L 900.0098, L504.2610, L100.0100, L500.4050 ####[facility] [address] [place], [address] Erythrocyte distribution width (RBC) [Ratio] 12.5 % Normal 11.6-14.6 [facility] Comment on above: Performed By: #### L 900.0098, L504.2610, L100.0100, L500.4050 ####[facility] [address] [place], [address] Hematocrit (Bld) [Volume fraction] 38.0 % Low 40-54 [facility] Comment on above: Performed By: #### L 900.0098, L504.2610, L100.0100, L500.4050 ####[facility] [address] [place], [address] Hemoglobin (Bld) [Mass/Vol] 13.2 g/dL Normal 13.0-16.5 [facility] Comment on above: Performed By: #### L 900.0098, L504.2610, L100.0100, L500.4050 ####[facility] [address] [place], [address] IG% 0.200 Normal 0.0-0.9 [facility] Comment on above: Result Comment: IG% - Immature Granulocytes (promyelocytes, myelocytes andmetamyelocytes) > 1% indicates that a LEFT SHIFT is Present. Performed By: #### L 900.0098, L504.2610, L100.0100, L500.4050 ####[facility] [address] [place], [address] Lymphocytes/100 WBC (Bld) 14.4 % Low 19-41 [facility] Comment on above: Performed By: #### L 900.0098, L504.2610, L100.0100, L500.4050 ####[facility] [address] [place], [address] MCH (RBC) [Entitic mass] 30.8 pg Normal 27.0-32.0 [facility] Comment on above: Performed By: #### L 900.0098, L504.2610, L100.0100, L500.4050 ####[facility] [address] [place], [address] MCHC (RBC) [Mass/Vol] 34.7 g/dL Normal 32-36 [facility] Comment on above: Performed By: #### L 900.0098, L504.2610, L100.0100, L500.4050 ####[facility] [address] [place], [address] MCV (RBC) [Entitic vol] 88.8 fL Normal 80-94 [facility] Comment on above: Performed By: #### L 900.0098, L504.2610, L100.0100, L500.4050 ####[facility] [address] [place], [address] Monocytes/100 WBC (Bld) 9.7 % Normal 0-10 [facility] Comment on above: Performed By: #### L 900.0098, L504.2610, L100.0100, L500.4050 ####[facility] [address] [place], [address] Neutrophils/100 WBC (Bld) 73.8 % High 47-70 [facility] Comment on above: Performed By: #### L 900.0098, L504.2610, L100.0100, L500.4050 ####[facility] [address] [place], [address] Nucleated RBC (Bld) [#/Vol] 0 10*3/uL Normal 0-5 [facility] Comment on above: Performed By: #### L 900.0098, L504.2610, L100.0100, L500.4050 ####[facility] [address] [place], [address] Platelet mean volume (Bld) [Entitic vol] 8.8 fL Normal 6.2-12.0 [facility] Comment on above: Performed By: #### L 900.0098, L504.2610, L100.0100, L500.4050 ####[facility] [address] [place], [address] Platelets (Bld) [#/Vol] 299 10*3/uL Normal 150-450 [facility] Comment on above: Performed By: #### L 900.0098, L504.2610, L100.0100, L500.4050 ####[facility] [address] [place], [address] RBC (Bld) [#/Vol] 4.28 10*6/uL Low 4.6-6.2 [facility] Comment on above: Performed By: #### L 900.0098, L504.2610, L100.0100, L500.4050 ####[facility] [address] [place], [address] RDW SD 40.6 fl Normal 35.1-43.9 [facility] Comment on above: Performed By: #### L 900.0098, L504.2610, L100.0100, L500.4050 ####[facility] [address] [place], [address] WBC (Bld) [#/Vol] 8.8 10*3/uL Normal 4.4-11.0 [facility] Comment on above: Performed By: #### L 900.0098, L504.2610, L100.0100, L500.4050 ####[facility] [address] [place], [address] Carbon dioxide, total [Moles /volume] in Central venous bloodOrdered By: Jerry Hightower on 10-24-2024 CO2 [Moles/Vol] 26.7 mmol/L 21.0-32.0 [facility] Carbon dioxide, total [Moles /volume] in Central venous bloodOrdered By: Papi Hernandez on 10-24-2024 CO2 [Moles/Vol] 26.7 mmol/L 21.0-32.0 [facility] Chloride assayOrdered By: Avinash Hightower on 10-24-2024 Chloride [Moles/Vol] 92 mmol/L Low 98-108 [facility] Chloride assayOrdered By: Santa Hernandez on 10-24-2024 Chloride [Moles/Vol] 94 mmol/L Low 98-108 [facility] Comprehensive Metabolic Prof ilon 10-24-2024 Albumin [Mass/Vol] 4.3 g/dL Normal 3.4-4.8 [facility] Comment on above: Performed By: #### L 500.4050, L501.2450, L100.0100, L503.6005 ####[facility] [address] [place], [address] Albumin/Globulin [Mass ratio] 1.4 {ratio} Normal 0.9-2.4 [facility] Comment on above: Performed By: #### L 500.4050, L501.2450, L100.0100, L503.6005 ####[facility] [address] [place], [address] ALK PHOS 103 U/L Normal 40-129 [facility] Comment on above: Performed By: #### L 500.4050, L501.2450, L100.0100, L503.6005 ####[facility] [address] [place], [address] ALT [Catalytic activity/Vol] 17 U/L Normal <=46 [facility] Comment on above: Performed By: #### L 500.4050, L501.2450, L100.0100, L503.6005 ####[facility] [address] [place], [address] AST [Catalytic activity/Vol] 27 U/L Normal <=37 [facility] Comment on above: Performed By: #### L 500.4050, L501.2450, L100.0100, L503.6005 ####[facility] [address] [place], [address] Bilirubin [Mass/Vol] 0.55 mg/dL Normal 0.00-1.30 [facility] Comment on above: Performed By: #### L 500.4050, L501.2450, L100.0100, L503.6005 ####[facility] [address] [place], [address] BUN/CRE 11.6 RATIO Normal 10-20 [facility] Comment on above: Performed By: #### L 500.4050, L501.2450, L100.0100, L503.6005 ####[facility] [address] [place], [address] Calcium [Mass/Vol] 9.2 mg/dL Normal 7.6-11.0 [facility] Comment on above: Performed By: #### L 500.4050, L501.2450, L100.0100, L503.6005 ####[facility] [address] [place], [address] Chloride [Moles/Vol] 92 mmol/L Low 98-108 [facility] Comment on above: Performed By: #### L 500.4050, L501.2450, L100.0100, L503.6005 ####[facility] [address] [place], [address] CO2 [Moles/Vol] 26.7 mmol/L Normal 21.0-32.0 [facility] Comment on above: Performed By: #### L 500.4050, L501.2450, L100.0100, L503.6005 ####[facility] [address] [place], [address] Creatinine [Mass/Vol] 0.94 mg/dL Normal 0.70-1.20 [facility] Comment on above: Performed By: #### L 500.4050, L501.2450, L100.0100, L503.6005 ####[facility] [address] [place], [address] ECRCL 56.56 ml/min Normal 50-250 [facility] Comment on above: Performed By: #### L 500.4050, L501.2450, L100.0100, L503.6005 ####[facility] [address] [place], [address] GAP 11 Normal 5-15 [facility] Comment on above: Performed By: #### L 500.4050, L501.2450, L100.0100, L503.6005 ####[facility] [address] [place], [address] GFR/1.73 sq M.predicted among non-blacks MDRD (S/P/Bld) [Vol rate/Area] 82 mL/min/{1.73_m2} Normal >60 [facility] Comment on above: Result Comment: mL/m in/1.73m2 CKD-EPI Creatinine Equation (2020) Performed By: #### L 500.4050, L501.2450, L100.0100, L503.6005 ####[facility] [address] [place], [address] Globulin (S) [Mass/Vol] 3.0 g/dL Normal 2.2-4.2 [facility] Comment on above: Performed By: #### L 500.4050, L501.2450, L100.0100, L503.6005 ####[facility] [address] [place], [address] Glucose [Mass/Vol] 105 mg/dL High 70-99 [facility] Comment on above: Performed By: #### L 500.4050, L501.2450, L100.0100, L503.6005 ####[facility] [address] [place], [address] Potassium [Moles/Vol] 3.8 mmol/L Normal 3.3-5.1 [facility] Comment on above: Performed By: #### L 500.4050, L501.2450, L100.0100, L503.6005 ####[facility] [address] [place], [address] Sodium [Moles/Vol] 130 mmol/L Low 133-145 [facility] Comment on above: Performed By: #### L 500.4050, L501.2450, L100.0100, L503.6005 ####[facility] [address] [place], [address] T PROT 7.3 g/dL Normal 5.9-8.4 [facility] Comment on above: Performed By: #### L 500.4050, L501.2450, L100.0100, L503.6005 ####[facility] [address] [place], [address] Urea nitrogen [Mass/Vol] 11 mg/dL Normal 4-19 [facility] Comment on above: Performed By: #### L 500.4050, L501.2450, L100.0100, L503.6005 ####[facility] [address] [place], [address] Albumin [Mass/Vol] 4.2 g/dL Normal 3.4-4.8 [facility] Comment on above: Performed By: #### L 900.0098, L504.2610, L100.0100, L500.4050 ####[facility] [address] [place], [address] Albumin/Globulin [Mass ratio] 1.4 {ratio} Normal 0.9-2.4 [facility] Comment on above: Performed By: #### L 900.0098, L504.2610, L100.0100, L500.4050 ####[facility] [address] [place], [address] ALK PHOS 100 U/L Normal 40-129 [facility] Comment on above: Performed By: #### L 900.0098, L504.2610, L100.0100, L500.4050 ####[facility] [address] [place], [address] ALT [Catalytic activity/Vol] 16 U/L Normal <=46 [facility] Comment on above: Performed By: #### L 900.0098, L504.2610, L100.0100, L500.4050 ####[facility] [address] [place], [address] AST [Catalytic activity/Vol] 27 U/L Normal <=37 [facility] Comment on above: Performed By: #### L 900.0098, L504.2610, L100.0100, L500.4050 ####[facility] [address] [place], [address] Bilirubin [Mass/Vol] 0.50 mg/dL Normal 0.00-1.30 [facility] Comment on above: Performed By: #### L 900.0098, L504.2610, L100.0100, L500.4050 ####[facility] [address] [place], [address] BUN/CRE 12.0 RATIO Normal 10-20 [facility] Comment on above: Performed By: #### L 900.0098, L504.2610, L100.0100, L500.4050 ####[facility] [address] [place], [address] Calcium [Mass/Vol] 9.2 mg/dL Normal 7.6-11.0 [facility] Comment on above: Performed By: #### L 900.0098, L504.2610, L100.0100, L500.4050 ####[facility] [address] [place], [address] Chloride [Moles/Vol] 94 mmol/L Low 98-108 [facility] Comment on above: Performed By: #### L 900.0098, L504.2610, L100.0100, L500.4050 ####[facility] [address] [place], [address] CO2 [Moles/Vol] 26.7 mmol/L Normal 21.0-32.0 [facility] Comment on above: Performed By: #### L 900.0098, L504.2610, L100.0100, L500.4050 ####[facility] [address] [place], [address] Creatinine [Mass/Vol] 0.90 mg/dL Normal 0.70-1.20 [facility] Comment on above: Performed By: #### L 900.0098, L504.2610, L100.0100, L500.4050 ####[facility] [address] [place], [address] ECRCL 61.20 ml/min Normal 50-250 [facility] Comment on above: Performed By: #### L 900.0098, L504.2610, L100.0100, L500.4050 ####[facility] [address] [place], [address] GAP 9 Normal 5-15 [facility] Comment on above: Performed By: #### L 900.0098, L504.2610, L100.0100, L500.4050 ####[facility] [address] [place], [address] GFR/1.73 sq M.predicted among non-blacks MDRD (S/P/Bld) [Vol rate/Area] 86 mL/min/{1.73_m2} Normal >60 [facility] Comment on above: Result Comment: mL/m in/1.73m2 CKD-EPI Creatinine Equation (2020) Performed By: #### L 900.0098, L504.2610, L100.0100, L500.4050 ####[facility] [address] [place], [address] Globulin (S) [Mass/Vol] 2.9 g/dL Normal 2.2-4.2 [facility] Comment on above: Performed By: #### L 900.0098, L504.2610, L100.0100, L500.4050 ####[facility] [address] [place], [address] Glucose [Mass/Vol] 107 mg/dL High 70-99 [facility] Comment on above: Performed By: #### L 900.0098, L504.2610, L100.0100, L500.4050 ####[facility] [address] [place], [address] Potassium [Moles/Vol] 4.2 mmol/L Normal 3.3-5.1 [facility] Comment on above: Performed By: #### L 900.0098, L504.2610, L100.0100, L500.4050 ####[facility] [address] [place], [address] Sodium [Moles/Vol] 131 mmol/L Low 133-145 [facility] Comment on above: Performed By: #### L 900.0098, L504.2610, L100.0100, L500.4050 ####[facility] [address] [place], [address] T PROT 7.0 g/dL Normal 5.9-8.4 [facility] Comment on above: Performed By: #### L 900.0098, L504.2610, L100.0100, L500.4050 ####[facility] [address] [place], [address] Urea nitrogen [Mass/Vol] 11 mg/dL Normal 4-19 [facility] Comment on above: Performed By: #### L 900.0098, L504.2610, L100.0100, L500.4050 ####[facility] [address] [place], [address] Emergency Department Summary on 10-24-2024 Emergency Department Summary Normal [facility] Eosinophil percentageOrdered By: Jerry Hightower on 10-24-2024 Eosinophils/100 WBC (Bld) 1.0 % 0-5 [facility] Eosinophil percentageOrdered By: Papi Hernandez on 10-24-2024 Eosinophils/100 WBC (Bld) 1.6 % 0-5 [facility] Epithelial cells.squamous LM Ql (Urine sed)Ordered By: Jerry Hightower on 10-24-2024 Epithelial cells.squamous LM.HPF (Urine sed) [#/Area] 0 /[HPF] 0-5 [facility] Erythrocyte distribution wid th ratioOrdered By: Jerry Hightower on 10-24-2024 Erythrocyte distribution width (RBC) [Ratio] 12.4 % 11.6-14.6 [facility] Erythrocyte distribution wid th ratioOrdered By: Papi Hernandez on 10-24-2024 Erythrocyte distribution width (RBC) [Ratio] 12.5 % 11.6-14.6 [facility] Erythrocyte distribution wid th standard deviationOrdered By: Jerry Hightower on 10-24-2024 Erythrocyte distribution width (RBC) [Entitic vol] 39.6 fL 35.1-43.9 [facility] Erythrocyte distribution width (RBC) [Ratio] 39.6 fl 35.1-43.9 [facility] Erythrocyte distribution wid th standard deviationOrdered By: Papi Hernandez on 10-24-2024 Erythrocyte distribution width (RBC) [Entitic vol] 40.6 fL 35.1-43.9 [facility] Erythrocyte distribution width (RBC) [Ratio] 40.6 fl 35.1-43.9 [facility] Estimation of creatinine dunia aranceOrdered By: Jerry Hightower on 10-24-2024 Estimated Creatinine Clearance Calc 56.56 ml/min 50-250 [facility] Estimation of creatinine dunia aranceOrdered By: Papi Hernandez on 10-24-2024 Estimated Creatinine Clearance Calc 61.20 ml/min 50-250 [facility] GFR/1.73 sq M.predicted gregg g non-blacks MDRD (S/P/Bld) [Vol rate/Area]Ordered By: Jerry Hightower on 10-24-2024 Estimated GFR (MDRD) Non-Af Amer 82 >60 [facility] Comment on above: mL/min/1.73m2 CKD-EP I Creatinine Equation (2020) GFR/1.73 sq M.predicted gregg g non-blacks MDRD (S/P/Bld) [Vol rate/Area]Ordered By: Papi Hernandez on 10-24-2024 Estimated GFR (MDRD) Non-Af Amer 86 >60 [facility] Comment on above: mL/min/1.73m2 CKD-EP I Creatinine Equation (2020) Glomerular filtration rate ( GFR) estimation/1.73 sq m using serum, plasma, or whole bOrdered By: Jerry Hightower on 10-24-2024 GFR/1.73 sq M.predicted among non-blacks MDRD (S/P/Bld) [Vol rate/Area] 82 mL/min/{1.73_m2} >60 [facility] Comment on above: mL/min/1.73m2 CKD-EP I Creatinine Equation (2020) Glomerular filtration rate ( GFR) estimation/1.73 sq m using serum, plasma, or whole bOrdered By: Papi Hernandez on 10-24-2024 GFR/1.73 sq M.predicted among non-blacks MDRD (S/P/Bld) [Vol rate/Area] 86 mL/min/{1.73_m2} >60 [facility] Comment on above: mL/min/1.73m2 CKD-EP I Creatinine Equation (2020) Glucose Ql (U)Ordered By: Avinash Hightower on 10-24-2024 Urine Glucose (UA) Normal mg/dl Normal [facility] Hematocrit Auto (Bld) [Volum e fraction]Ordered By: Jerry Hightower on 10-24-2024 Hematocrit (Bld) [Volume fraction] 37.0 % Low 40-54 [facility] Hematocrit Auto (Bld) [Volum e fraction]Ordered By: Papi Hernandez on 10-24-2024 Hematocrit (Bld) [Volume fraction] 38.0 % Low 40-54 [facility] Hemoglobin measurementOrdere d By: Jerry Hightower on 10-24-2024 Hemoglobin (Bld) [Mass/Vol] 13.1 g/dL 13.0-16.5 [facility] Hemoglobin measurementOrdere d By: Papi Hernandez on 10-24-2024 Hemoglobin (Bld) [Mass/Vol] 13.2 g/dL 13.0-16.5 [facility] Immature granulocytes/100 WB C Auto (Bld)Ordered By: Jerry Hightower on 10-24-2024 Immature granulocytes/100 WBC (Bld) 0.500 % 0.0-0.9 [facility] Comment on above: IG% - Immature Granu locytes (promyelocytes, myelocytes and metamyelocytes) > 1% indicates that a LEFT SHIFT is Present. Immature granulocytes/100 WB C Auto (Bld)Ordered By: Papi Hernandez on 10-24-2024 Immature granulocytes/100 WBC (Bld) 0.200 % 0.0-0.9 [facility] Comment on above: IG% - Immature Granu locytes (promyelocytes, myelocytes and metamyelocytes) > 1% indicates that a LEFT SHIFT is Present. Ketones Test strip Ql (U)Ord ered By: Jerry Hightower on 10-24-2024 Ketones Ql (U) Negative Negative [facility] LDHon 10-24-2024 LDH 105 U/L Normal 87-241 [facility] Comment on above: Order Comment: 1 Performed By: #### L 900.0098, L504.2610, L100.0100, L500.4050 ####[facility] [address] [place], [place], [id number] Laboratory - Chemistry and C hemistry - challengeOrdered By: Jerry Hightower on 10-24-2024 AST [Catalytic activity/Vol] 27 U/L <38 [facility] Laboratory - Chemistry and C hemistry - challengeOrdered By: Papi Hernandez on 10-24-2024 AST [Catalytic activity/Vol] 27 U/L <38 [facility] Lactate dehydrogenase (LDH) measurementOrdered By: Papi Hernandez on 10-24-2024 LDH [Catalytic activity/Vol] 105 U/L 87-241 [facility] Lactic Acidon 10-24-2024 Lactate [Moles/Vol] 1.1 mmol/L Normal 0.0-2.0 [facility] Comment on above: Order Comment: Y Performed By: #### L 500.4050, L501.2450, L100.0100, L503.6005 ####[facility] [address] [place], [place], [address] Lactic acid measurementOrder ed By: Jerry Hightower on 10-24-2024 Lactate [Moles/Vol] 1.1 mmol/L 0.0-2.0 [facility] Lipaseon 10-24-2024 Lipase [Catalytic activity/Vol] 28 U/L Normal 13-75 [facility] Comment on above: Result Comment: Debi vieyra note:LIPASE revised reference range effective 22.New Lipase methodology. Expected to produce lower valuesthan the previous assay method.NEW Reference Range: 13 - 75 U/L Performed By: #### L 500.4050, L501.2450, L100.0100, L503.6005 ####[facility] [address] [place], [address] Lipase measurementOrdered By : Jerry Hightower on 10-24-2024 Lipase [Catalytic activity/Vol] 28 U/L 13-75 [facility] Comment on above: Please note:LIPASE r evised reference range effective 22. New Lipase methodology. Expected to produce lower values than the previous assay method. NEW Reference Range: 13 - 75 U/L Lymphocytes Auto (Unsp spec) [#/Vol]Ordered By: Jerry Hightower on 10-24-2024 Lymphocytes (Bld) [#/Vol] 1.10 10*3/uL 0.83-4.51 [facility] Lymphocytes Auto (Unsp spec) [#/Vol]Ordered By: Papi Hernandez on 10-24-2024 Lymphocytes (Bld) [#/Vol] 1.26 10*3/uL 0.83-4.51 [facility] Lymphocytes/100 WBC Auto (Un sp spec)Ordered By: Jerry Hightower on 10-24-2024 Lymphocytes/100 WBC (Bld) 12.7 % Low 19-41 [facility] Lymphocytes/100 WBC Auto (Un sp spec)Ordered By: Papi Hernandez on 10-24-2024 Lymphocytes/100 WBC (Bld) 14.4 % Low 19-[address] [place] [address] MCV (mean corpuscular volume ) determinationOrdered By: Jerry Hightower on 10-24-2024 MCV (RBC) [Entitic vol] 87.1 fL 80-94 [facility] MCV (mean corpuscular volume ) determinationOrdered By: Papi Hernandez on 10-24-2024 MCV (RBC) [Entitic vol] 88.8 fL 80-94 [facility] Mean corpuscular hemoglobin (MCH) determinationOrdered By: Jerry Hightower on 10-24-2024 MCH (RBC) [Entitic mass] 30.8 pg 27.0-32.0 [facility] Mean corpuscular hemoglobin (MCH) determinationOrdered By: Papi Hernandez on 10-24-2024 MCH (RBC) [Entitic mass] 30.8 pg 27.0-32.0 [facility] Mean corpuscular hemoglobin concentration (MCHC) determinationOrdered By: Jerry Hightower on 10-24-2024 MCHC (RBC) [Mass/Vol] 35.4 g/dL [facility] Mean corpuscular hemoglobin concentration (MCHC) determinationOrdered By: Papi Hernandez on 10-24-2024 MCHC (RBC) [Mass/Vol] 34.7 g/dL [facility] Mean platelet volume determi nationOrdered By: Jerry Hightower on 10-24-2024 Platelet mean volume (Bld) [Entitic vol] 9.0 fL 6.2-12.0 [facility] Mean platelet volume determi nationOrdered By: Papi Hernandez on 10-24-2024 Platelet mean volume (Bld) [Entitic vol] 8.8 fL 6.2-12.0 [facility] Microscopic analysis of urin e for red blood cells (RBC)Ordered By: Jerry Hightower on 10-24-2024 Microscopic analysis of urine for red blood cells (RBC) 0-5 SEEN /hpf 0-5 [facility] Urine RBC 0-5 SEEN /hpf 0-5 [facility] Miscellaneous procedureOrder ed By: Papi Hernandez on 10-24-2024 Miscellaneous Test Comment SEE SCANNED REPORT [facility] Monocyte percentageOrdered B y: Jerry Hightower on 10-24-2024 Monocytes/100 WBC (Bld) 8.4 % 0-10 [facility] Monocyte percentageOrdered B y: Papi Hernandez on 10-24-2024 Monocytes/100 WBC (Bld) 9.7 % 0-10 [facility] Mucus LM Ql (Urine sed)Order ed By: Jerry Hightower on 10-24-2024 Mucus Ql (Urine sed) 0 SEEN /hpf [facility] NATERAon 10-24-2024 NATURA SEE SCANNED REPORT Normal [facility] Comment on above: Performed By: #### L 900.0098, L504.2610, L100.0100, L500.4050 ####[facility] [address] [place], [address] Neutrophil percentageOrdered By: Jerry Hightower on 10-24-2024 Neutrophils/100 WBC (Bld) 77.1 % High 47-70 [facility] Neutrophil percentageOrdered By: Papi Hernandez on 10-24-2024 Neutrophils/100 WBC (Bld) 73.8 % High 47-70 [facility] Nitrite Test strip Ql (U)Ord ered By: Jerry Hightower on 10-24-2024 Nitrite Ql (U) Negative Negative [facility] No Panel InformationOrdered By: Jerry Hightower on 10-24-2024 27 U/L <38 [facility] No Panel InformationOrdered By: Papi Hernandez on 10-24-2024 27 U/L <38 [facility] Nucleated red blood cell per centageOrdered By: Jerry Hightower on 10-24-2024 Nucleated RBC/100 WBC (Bld) [Ratio] 0 % 0-5 [facility] Nucleated red blood cell per centageOrdered By: Papi Hernandez on 10-24-2024 Nucleated RBC/100 WBC (Bld) [Ratio] 0 % 0-5 [facility] Platelet countOrdered By: Avinash Hightower on 10-24-2024 Platelets (Bld) [#/Vol] 307 10*3/uL 150-450 [facility] Platelet countOrdered By: Santa Hernandez on 10-24-2024 Platelets (Bld) [#/Vol] 299 10*3/uL 150-450 [facility] Potassium (Unsp spec) [Mass/ Vol]Ordered By: Jerry Hightower on 10-24-2024 Potassium [Moles/Vol] 3.8 mmol/L 3.3-5.1 [facility] Potassium (Unsp spec) [Mass/ Vol]Ordered By: Papi Hernandez on 10-24-2024 Potassium [Moles/Vol] 4.2 mmol/L 3.3-5.1 [facility] Potassium measurement (mass/ volume)Ordered By: Jerry Hightower on 10-24-2024 Potassium (Unsp spec) [Mass/Vol] 3.8 mmol/L 3.3-5.1 [facility] Potassium measurement (mass/ volume)Ordered By: Papi Hernandez on 10-24-2024 Potassium (Unsp spec) [Mass/Vol] 4.2 mmol/L 3.3-5.1 [facility] Protein Test strip Ql (U)Ord ered By: Jerry Hightower on 10-24-2024 Protein Ql (U) 15 mg/dl High Negative [facility] RBC Auto (Bld) [#/Vol]Ordere d By: Jerry Hightower on 10-24-2024 RBC (Bld) [#/Vol] 4.25 10*6/uL Low 4.6-6.2 [facility] RBC Auto (Bld) [#/Vol]Ordere d By: Papi Hernandez on 10-24-2024 RBC (Bld) [#/Vol] 4.28 10*6/uL Low 4.6-6.2 [facility] Serum creatinine measurement (mass/volume)Ordered By: Jerry Hightower on 10-24-2024 Creatinine [Mass/Vol] 0.94 mg/dL 0.70-1.20 [facility] Serum creatinine measurement (mass/volume)Ordered By: Papi Hernandez on 10-24-2024 Creatinine [Mass/Vol] 0.90 mg/dL 0.70-1.20 [facility] Serum globulin measurementOr dered By: Jerry Hightower on 10-24-2024 Globulin (S) [Mass/Vol] 3.0 g/dL 2.2-4.2 [facility] Serum globulin measurementOr dered By: Papi Hernandez on 10-24-2024 Globulin (S) [Mass/Vol] 2.9 g/dL 2.2-4.2 [facility] Serum glucose measurement (m ass/volume)Ordered By: Jerry Hightower on 10-24-2024 Glucose [Mass/Vol] 105 mg/dL High 70-99 [facility] Serum glucose measurement (m ass/volume)Ordered By: Papi Hernandez on 10-24-2024 Glucose [Mass/Vol] 107 mg/dL High 70-99 [facility] Serum or plasma alanine carrion otransferase (ALT) measurementOrdered By: Jerry Hightower on 10-24-2024 ALT [Catalytic activity/Vol] 17 U/L <47 [facility] Serum or plasma alanine carrion otransferase (ALT) measurementOrdered By: Papi Hernandez on 10-24-2024 ALT [Catalytic activity/Vol] 16 U/L <47 [facility] Serum or plasma albumin shagufta urement (mass/volume)Ordered By: Jerry Hightower on 10-24-2024 Albumin [Mass/Vol] 4.3 g/dL 3.4-4.8 [facility] Serum or plasma albumin shagufta urement (mass/volume)Ordered By: Papi Hernandez on 10-24-2024 Albumin [Mass/Vol] 4.2 g/dL 3.4-4.8 [facility] Serum or plasma albumin/glob ulin mass ratioOrdered By: Jerry Hightower on 10-24-2024 Albumin/Globulin [Mass ratio] 1.4 {ratio} 0.9-2.4 [facility] Serum or plasma albumin/glob ulin mass ratioOrdered By: Papi Hernandez on 10-24-2024 Albumin/Globulin [Mass ratio] 1.4 {ratio} 0.9-2.4 [facility] Serum or plasma alkaline airam sphatase measurementOrdered By: Jerry Hightower on 10-24-2024 ALP [Catalytic activity/Vol] 103 U/L 40-129 [facility] Serum or plasma alkaline airam sphatase measurementOrdered By: Papi Hernandez on 10-24-2024 ALP [Catalytic activity/Vol] 100 U/L 40-129 [facility] Serum or plasma calcium shagufta urement (mass/volume)Ordered By: Jerry Hightower on 10-24-2024 Calcium [Mass/Vol] 9.2 mg/dL 7.6-11.0 [facility] Serum or plasma calcium shagufta urement (mass/volume)Ordered By: Papi Hernandez on 10-24-2024 Calcium [Mass/Vol] 9.2 mg/dL 7.6-11.0 [facility] Serum or plasma carcinoembry onic antigen measurement (mass/volume)Ordered By: Papi Hernandez on 10-24-2024 Carcinoembryonic Ag [Mass/Vol] 25.2 ng/mL High 0.0-4.7 [facility] Comment on above: Nonsmokers <3.9 Smok ers <5.6[employer] Electrochemiluminescence Immunoassay(ECLIA)Values obtained with different assay methods or kitscannot be used interchangeably. Results cannot beinterpreted as absolute evidence of the presence orabsence of malignant disease.Performed at: [address] [id number] Director: Jian Paredes PhD, Phone: [phone] Serum or plasma urea nitroge n measurement (mass/volume)Ordered By: Jerry Hightower on 10-24-2024 Urea nitrogen [Mass/Vol] 11 mg/dL 11-17 [facility] Serum or plasma urea nitroge n measurement (mass/volume)Ordered By: Papi Hernandez on 10-24-2024 Urea nitrogen [Mass/Vol] 11 mg/dL 11-17 [facility] Sodium levelOrdered By: Natalie Hightower on 10-24-2024 Sodium [Moles/Vol] 130 mmol/L Low 133-145 [facility] Sodium levelOrdered By: Stephan Hernandez on 10-24-2024 Sodium [Moles/Vol] 131 mmol/L Low 133-145 [facility] Squamous epithelial cells de tection in urine sediment by light microscopyOrdered By: Jerry Hightower on 10-24-2024 Epithelial cells.squamous LM Ql (Urine sed) 0-5 SEEN /hpf 0-5 [facility] Testicular with Arterial Tommy won 10-24-2024 Testicular with Arterial Flow Normal [facility] Total proteinOrdered By: Renay Hightower on 10-24-2024 Protein [Mass/Vol] 7.3 g/dL 5.9-8.4 [facility] Total proteinOrdered By: Thang Hernandez on 10-24-2024 Protein [Mass/Vol] 7.0 g/dL 5.9-8.4 [facility] Urinalysis, Completeon 10-24 EPI,SQUAMOUS 0-5 SEEN Normal 0-5 [facility] Comment on above: Order Comment: CLEAN CATCH Performed By: #### L 400.0001 ####[facility] [address] [place], [address] RBC 0-5 SEEN Normal 0-5 [facility] Comment on above: Order Comment: CLEAN CATCH Performed By: #### L 400.0001 ####[facility] [address] [place], [address] BACTERIA 0 SEEN Normal None Seen [facility] Comment on above: Order Comment: CLEAN CATCH Performed By: #### L 400.0001 ####[facility] [address] [place], [address] Mucus Ql (Urine sed) 0 SEEN Normal [facility] Comment on above: Order Comment: CLEAN CATCH Performed By: #### L 400.0001 ####[facility] [address] [place], [address] WBC 0 SEEN Normal 0-5 [facility] Comment on above: Order Comment: CLEAN CATCH Performed By: #### L 400.0001 ####[facility] [address] [place], [address] Urine blood detectionOrdered By: Jerry Hightower on 10-24-2024 Urine Occult Blood Negative Negative [facility] Urine clarityOrdered By: Renay Hightower on 10-24-2024 Clarity (U) Clear Clear [facility] Urine color determinationOrd ered By: Jerry Hightower on 10-24-2024 Color (U) Straw Yellow [facility] Urine glucose detectionOrder ed By: Jerry Hightower on 10-24-2024 Glucose Ql (U) Normal mg/dl Normal [facility] Urine leukocyte esterase det ection by dipstickOrdered By: Jerry Hightower on 10-24-2024 Leukocyte esterase Test strip Ql (U) Negative Negative [facility] Urine pHOrdered By: Jerry garza on 10-24-2024 pH (U) 8.0 [pH] 5.0 - 8.0 [facility] Urine sediment bacteria coun t by microscopy (number/high power field)Ordered By: Jerry Hightower on 10-24-2024 Bacteria LM.HPF (Urine sed) [#/Area] 0 /[HPF] None Seen [facility] Urine specific gravity measu rementOrdered By: Jerry Hightower on 10-24-2024 Specific gravity (U) [Rel density] 1.010 1.002-1.030 [facility] Urine urobilinogen measureme ntOrdered By: Jerry Hightower on 10-24-2024 Urobilinogen Ql (U) Normal mg/dl Normal [facility] Urobilinogen Ql (U)Ordered B y: Jerry Hightower on 10-24-2024 Urine Urobilinogen Normal mg/dl Normal [facility] White blood cell (WBC) count Ordered By: Jerry Hightower on 10-24-2024 WBC (Bld) [#/Vol] 8.7 10*3/uL 4.4-11.0 [facility] White blood cell (WBC) count Ordered By: Papi Hernandez on 10-24-2024 WBC (Bld) [#/Vol] 8.8 10*3/uL 4.4-11.0 [facility] White blood cell countOrdere d By: Jerry Hightower on 10-24-2024 Urine WBC 0 SEEN /hpf 0-5 [facility] White blood cell count 0 SEEN /hpf 0-5 [facility] [place] [facility] Amorphous sediment detection in urine sediment by light microscopyOrdered By: Malinda Webster on 10-17-2024 Amorphous sediment LM Ql (Urine sed) 3+ [facility] Anion gap in Serum or Plasma Ordered By: Malinda Webster on 10-17-2024 Anion gap [Moles/Vol] 9 mmol/L 5-15 [facility] BUN/creatinine ratioOrdered By: Malinda Webster on 10-17-2024 Urea nitrogen/Creatinine [Mass ratio] 15.2 mg/mg 10- [facility] Basic Metabolic Profile (BMP )on 10-17-2024 BUN/CRE 15.2 RATIO Normal - [facility] Comment on above: Performed By: #### L 500.2500, L400.0001 ####[facility] [address] [place], [address] Calcium [Mass/Vol] 9.7 mg/dL Normal 7.6-11.0 [facility] Comment on above: Performed By: #### L 500.2500, L400.0001 ####[facility] [address] [place], [address] Chloride [Moles/Vol] 93 mmol/L Low 98-108 [facility] Comment on above: Performed By: #### L 500.2500, L400.0001 ####[facility] [address] [place], [address] CO2 [Moles/Vol] 27.4 mmol/L Normal 21.0-32.0 [facility] Comment on above: Performed By: #### L 500.2500, L400.0001 ####[facility] [address] [place], [address] Creatinine [Mass/Vol] 1.06 mg/dL Normal 0.70-1.20 [facility] Comment on above: Performed By: #### L 500.2500, L400.0001 ####[facility] [address] [place], [address] GAP 9 Normal 5-15 [facility] Comment on above: Performed By: #### L 500.2500, L400.0001 ####[facility] [address] [place], [address] GFR/1.73 sq M.predicted among non-blacks MDRD (S/P/Bld) [Vol rate/Area] 71 mL/min/{1.73_m2} Normal >60 [facility] Comment on above: Result Comment: mL/m in/1.73m2 CKD-EPI Creatinine Equation (2020) Performed By: #### L 500.2500, L400.0001 ####[facility] [address] [place], [address] Glucose [Mass/Vol] 100 mg/dL High 70-99 [facility] Comment on above: Performed By: #### L 500.2500, L400.0001 ####[facility] [address] [place], [address] Potassium [Moles/Vol] 4.5 mmol/L Normal 3.3-5.1 [facility] Comment on above: Performed By: #### L 500.2500, L400.0001 ####[facility] [address] [place], [address] Sodium [Moles/Vol] 130 mmol/L Low 133-145 [facility] Comment on above: Performed By: #### L 500.2500, L400.0001 ####[facility] [address] [place], [address] Urea nitrogen [Mass/Vol] 16 mg/dL Normal -19 [facility] Comment on above: Performed By: #### L 500.2500, L400.0001 ####[facility] [address] [place], [address] Bilirubin Test strip Ql (U)O rdered By: Malinda Webster on 10-17-2024 Bilirubin Ql (U) Negative Negative [facility] Carbon dioxide, total [Moles /volume] in Central venous bloodOrdered By: Malinda Webster on 10-17-2024 CO2 [Moles/Vol] 27.4 mmol/L 21.0-32.0 [facility] Cardiology Visit Reporton Cardiology Visit Report Normal [facility] Chloride assayOrdered By: Santa Webster on 10-17-2024 Chloride [Moles/Vol] 93 mmol/L Low 98-108 [facility] Epithelial cells.squamous LM Ql (Urine sed)Ordered By: Malinda Webster on 10-17-2024 Epithelial cells.squamous LM.HPF (Urine sed) [#/Area] 0 /[HPF] 0-5 [facility] GFR/1.73 sq M.predicted gregg g non-blacks MDRD (S/P/Bld) [Vol rate/Area]Ordered By: Malinda Webster on 10-17-2024 Estimated GFR (MDRD) Non-Af Amer 71 >60 [facility] Comment on above: mL/min/1.73m2 CKD-EP I Creatinine Equation (2020) Glomerular filtration rate ( GFR) estimation/1.73 sq m using serum, plasma, or whole bOrdered By: Malinda Webster on 10-17-2024 GFR/1.73 sq M.predicted among non-blacks MDRD (S/P/Bld) [Vol rate/Area] 71 mL/min/{1.73_m2} >60 [facility] Comment on above: mL/min/1.73m2 CKD-EP I Creatinine Equation (2020) Glucose Ql (U)Ordered By: Santa Webster on 10-17-2024 Urine Glucose (UA) Normal mg/dl Normal [facility] Ketones Test strip Ql (U)Ord ered By: Malinda Webster on 10-17-2024 Ketones Ql (U) Negative Negative [facility] Microscopic analysis of urin e for red blood cells (RBC)Ordered By: Malinda Webster on 10-17-2024 Microscopic analysis of urine for red blood cells (RBC) 0 SEEN /hpf 0-5 [facility] Urine RBC 0 SEEN /hpf 0-5 [facility] Mucus LM Ql (Urine sed)Order ed By: Malinda Webster on 10-17-2024 Mucus Ql (Urine sed) 0 SEEN /hpf [facility] Nitrite Test strip Ql (U)Ord ered By: Malinda Webster on 10-17-2024 Nitrite Ql (U) Negative Negative [facility] Potassium (Unsp spec) [Mass/ Vol]Ordered By: Malinda Webster on 10-17-2024 Potassium [Moles/Vol] 4.5 mmol/L 3.3-5.1 [facility] Potassium measurement (mass/ volume)Ordered By: Malinda Webster on 10-17-2024 Potassium (Unsp spec) [Mass/Vol] 4.5 mmol/L 3.3-5.1 [facility] Protein Test strip Ql (U)Ord ered By: Malinda Webster on 10-17-2024 Protein Ql (U) 30 mg/dl High Negative [facility] Serum creatinine measurement (mass/volume)Ordered By: Malinda Webster on 10-17-2024 Creatinine [Mass/Vol] 1.06 mg/dL 0.70-1.20 [facility] Serum glucose measurement (m ass/volume)Ordered By: Malinda Webster on 10-17-2024 Glucose [Mass/Vol] 100 mg/dL High 70-99 [facility] Serum or plasma calcium shagufta urement (mass/volume)Ordered By: Malinda Webster on 10-17-2024 Calcium [Mass/Vol] 9.7 mg/dL 7.6-11.0 [facility] Serum or plasma urea nitroge n measurement (mass/volume)Ordered By: Malinda Webster on 10-17-2024 Urea nitrogen [Mass/Vol] 16 mg/dL 4-19 [facility] Sodium levelOrdered By: Malinda Webster on 10-17-2024 Sodium [Moles/Vol] 130 mmol/L Low 133-145 [facility] Squamous epithelial cells de tection in urine sediment by light microscopyOrdered By: Malinda Webster on 10-17-2024 Epithelial cells.squamous LM Ql (Urine sed) 0 SEEN /hpf 0-5 [facility] Urinalysis, Completeon 10-17 AMORPHOUS 3+ Normal [facility] Comment on above: Order Comment: BOB CTOR TO SPECIFY Performed By: #### L 500.2500, L400.0001 ####[facility] [address] [place], [address] BACTERIA 2+ /hpf Normal None Seen [facility] Comment on above: Order Comment: BOB CTOR TO SPECIFY Performed By: #### L 500.2500, L400.0001 ####[facility] [address] [place], [address] RBC 0 SEEN Normal 0-5 [facility] Comment on above: Order Comment: BOB CTOR TO SPECIFY Performed By: #### L 500.2500, L400.0001 ####[facility] [address] [place], [address] EPI,SQUAMOUS 0 SEEN Normal 0-5 [facility] Comment on above: Order Comment: BOB CTOR TO SPECIFY Performed By: #### L 500.2500, L400.0001 ####[facility] [address] [place], [address] Mucus Ql (Urine sed) 0 SEEN Normal [facility] Comment on above: Order Comment: BOB CTOR TO SPECIFY Performed By: #### L 500.2500, L400.0001 ####[facility] [address] [place], [place], [address] WBC 0 SEEN Normal 0-5 [facility] Comment on above: Order Comment: BOB CTOR TO SPECIFY Performed By: #### L 500.2500, L400.0001 ####[facility] [address] [place], [place], [id number] Urine blood detectionOrdered By: Malinda Webster on 10-17-2024 Urine Occult Blood Negative Negative [facility] Urine clarityOrdered By: Marcelo Webster on 10-17-2024 Clarity (U) Sl. Cloudy Clear [facility] Urine color determinationOrd ered By: Malinda Webster on 10-17-2024 Color (U) Yellow Yellow [facility] Urine glucose detectionOrder ed By: Malinda Webster on 10-17-2024 Glucose Ql (U) Normal mg/dl Normal [facility] Urine leukocyte esterase det ection by dipstickOrdered By: Malinda Webster on 10-17-2024 Leukocyte esterase Test strip Ql (U) Negative Negative [facility] Urine pHOrdered By: Malinda vallejo on 10-17-2024 pH (U) 8.0 [pH] 5.0 - 8.0 [facility] Urine sediment bacteria coun t by microscopy (number/high power field)Ordered By: Malinda Webster on 10-17-2024 Bacteria LM.HPF (Urine sed) [#/Area] 2 /[HPF] None Seen [facility] Urine specific gravity measu rementOrdered By: Malinda Webster on 10-17-2024 Specific gravity (U) [Rel density] 1.015 1.002-1.030 [facility] Urine urobilinogen measureme ntOrdered By: Malinda Webster on 10-17-2024 Urobilinogen Ql (U) Normal mg/dl Normal [facility] Urobilinogen Ql (U)Ordered B y: Malinda Webster on 10-17-2024 Urine Urobilinogen Normal mg/dl Normal [facility] White blood cell countOrdere d By: Malinda Webster on 10-17-2024 Urine WBC 0 SEEN /hpf 0-5 [facility] White blood cell count 0 SEEN /hpf 0-5 [facility] [place] [facility] Absolute lymphocyte countOrd ered By: Mariela Shahram on 09-05-2024 Lymphocytes Auto (Unsp spec) [#/Vol] 1.41 10*3/uL 0.83-4.51 [facility] Absolute neutrophil countOrd ered By: [facility] on 09-05-2024 Neutrophils (Bld) [#/Vol] 4.1 10*3/uL 2.0-7.7 [facility] Albumin to globulin ratioOrd ered By: [facility] on 09-05-2024 Albumin/Globulin [Mass ratio] 1.0 {ratio} 0.9-2.4 [facility] Automated lymphocyte count a s percentage of total leukocytesOrdered By: [facility] on 09-05-2024 Lymphocytes/100 WBC Auto (Unsp spec) 22.2 % 19-41 [facility] Basophil percentageOrdered B y: [facility] on 09-05-2024 Basophils/100 WBC (Bld) 0.3 % 0-1 [facility] Bilirubin, totalOrdered By: [facility] on 09-05-2024 Bilirubin [Mass/Vol] 0.80 mg/dL 0.20-1.00 [facility] Comment on above: For patients on eltr ombopag therapy, use of Dimension [place] TBIL is not recommended. Blood urea nitrogen (BUN)/cr eatinine ratioOrdered By: [facility] on 09-05-2024 Urea nitrogen/Creatinine [Mass ratio] 13.0 mg/mg 10-20 [facility] CBC W/Diff, Automatedon Absolute Lymph 1.41 X10 3/uL Normal 0.83-4.51 [facility] Comment on above: Performed By: #### L 500.4050, L100.0100 ####[facility] [address] [place], [place], [address] Absolute Neut 4.1 X10 3/uL Normal 2.0-7.7 [facility] Comment on above: Performed By: #### L 500.4050, L100.0100 ####[facility] [address] [place], [address] Basophils/100 WBC (Bld) 0.3 % Normal 0-1 [facility] Comment on above: Performed By: #### L 500.4050, L100.0100 ####[facility] [address] [place], [address] Eosinophils/100 WBC (Bld) 3.1 % Normal 0-5 [facility] Comment on above: Performed By: #### L 500.4050, L100.0100 ####[facility] [address] [place], [address] Erythrocyte distribution width (RBC) [Ratio] 13.3 % Normal 11.6-14.6 [facility] Comment on above: Performed By: #### L 500.4050, L100.0100 ####[facility] [address] [place], [address] Hematocrit (Bld) [Volume fraction] 39.9 % Low 40-54 [facility] Comment on above: Performed By: #### L 500.4050, L100.0100 ####[facility] [address] [place], [address] Hemoglobin (Bld) [Mass/Vol] 13.3 g/dL Normal 13.0-16.5 [facility] Comment on above: Performed By: #### L 500.4050, L100.0100 ####[facility] [address] [place], [address] IG% 0.200 Normal 0.0-0.9 [facility] Comment on above: Result Comment: IG% - Immature Granulocytes (promyelocytes, myelocytes andmetamyelocytes) > 1% indicates that a LEFT SHIFT is Present. Performed By: #### L 500.4050, L100.0100 ####[facility] [address] [place], [address] Lymphocytes/100 WBC (Bld) 22.2 % Normal 19-41 [facility] Comment on above: Performed By: #### L 500.4050, L100.0100 ####[facility] [address] [place], [address] MCH (RBC) [Entitic mass] 29.6 pg Normal 27.0-32.0 [facility] Comment on above: Performed By: #### L 500.4050, L100.0100 ####[facility] [address] [place], [address] MCHC (RBC) [Mass/Vol] 33.3 g/dL Normal 32-36 [facility] Comment on above: Performed By: #### L 500.4050, L100.0100 ####[facility] [address] [place], [address] MCV (RBC) [Entitic vol] 88.7 fL Normal 80-94 [facility] Comment on above: Performed By: #### L 500.4050, L100.0100 ####[facility] [address] [place], [address] Monocytes/100 WBC (Bld) 10.2 % High 0-10 [facility] Comment on above: Performed By: #### L 500.4050, L100.0100 ####[facility] [address] [place], [address] Neutrophils/100 WBC (Bld) 64.0 % Normal 47-70 [facility] Comment on above: Performed By: #### L 500.4050, L100.0100 ####[facility] [address] [place], [address] Nucleated RBC (Bld) [#/Vol] 0 10*3/uL Normal 0-5 [facility] Comment on above: Performed By: #### L 500.4050, L100.0100 ####[facility] [address] [place], [address] Platelet mean volume (Bld) [Entitic vol] 9.8 fL Normal 6.2-12.0 [facility] Comment on above: Performed By: #### L 500.4050, L100.0100 ####[facility] [address] [place], [address] Platelets (Bld) [#/Vol] 274 10*3/uL Normal 150-450 [facility] Comment on above: Performed By: #### L 500.4050, L100.0100 ####[facility] [address] [place], [address] RBC (Bld) [#/Vol] 4.50 10*6/uL Low 4.6-6.2 [facility] Comment on above: Performed By: #### L 500.4050, L100.0100 ####[facility] [address] [place], [address] RDW SD 43.2 fl Normal 35.1-43.9 [facility] Comment on above: Performed By: #### L 500.4050, L100.0100 ####[facility] [address] [place], [address] WBC (Bld) [#/Vol] 6.4 10*3/uL Normal 4.4-11.0 [facility] Comment on above: Performed By: #### L 500.4050, L100.0100 ####[facility] [address] [place], [address] Carbon dioxide measurementOr dered By: Mariela Olson on 09-05-2024 CO2 [Moles/Vol] 30.0 mmol/L 21.0-32.0 [facility] Chloride measurementOrdered By: Mariela Olson on 09-05-2024 Chloride [Moles/Vol] 98 mmol/L 98-107 [facility] Comprehensive Metabolic Prof ilon 09-05-2024 Albumin [Mass/Vol] 3.8 g/dL Normal 3.2-5.0 [facility] Comment on above: Performed By: #### L 500.4050, L100.0100 ####[facility] [address] [place], [address] Albumin/Globulin [Mass ratio] 1.0 {ratio} Normal 0.9-2.4 [facility] Comment on above: Performed By: #### L 500.4050, L100.0100 ####[facility] [address] [place], [address] ALK P 106 U/L Normal 45-117 [facility] Comment on above: Performed By: #### L 500.4050, L100.0100 ####[facility] [address] [place], [address] ALT [Catalytic activity/Vol] 30 U/L Normal 16-61 [facility] Comment on above: Performed By: #### L 500.4050, L100.0100 ####[facility] [address] [place], [address] AST [Catalytic activity/Vol] 27 U/L Normal 15-37 [facility] Comment on above: Performed By: #### L 500.4050, L100.0100 ####[facility] [address] [place], [address] Bilirubin [Mass/Vol] 0.80 mg/dL Normal 0.20-1.00 [facility] Comment on above: Result Comment: For patients on eltrombopag therapy, use of Dimension [place] TBIL is not recommended. Performed By: #### L 500.4050, L100.0100 ####[facility] [address] [place], [address] BUN/CRE 13.0 RATIO Normal 10-20 [facility] Comment on above: Performed By: #### L 500.4050, L100.0100 ####[facility] [address] [place], [address] CA,Total 9.8 mg/dL Normal 8.5-10.1 [facility] Comment on above: Performed By: #### L 500.4050, L100.0100 ####[facility] [address] [place], [address] Chloride [Moles/Vol] 98 mmol/L Normal 98-107 [facility] Comment on above: Performed By: #### L 500.4050, L100.0100 ####[facility] [address] [place], [address] CO2 [Moles/Vol] 30.0 mmol/L Normal 21.0-32.0 [facility] Comment on above: Performed By: #### L 500.4050, L100.0100 ####[facility] [address] [place], [address] Creatinine [Mass/Vol] 1.23 mg/dL Normal 0.70-1.30 [facility] Comment on above: Result Comment: The validity of the calculated GFR GFRAA in patients over70 years has not been determined. Clinical correlation isessential. Performed By: #### L 500.4050, L100.0100 ####[facility] [address] [place], [address] EST GFR - AA 73 mL/min Normal >60 [facility] Comment on above: Result Comment: Afri can Swiss GFR Calc Performed By: #### L 500.4050, L100.0100 ####[facility] [address] [place], [address] GAP 7 Normal 5-15 [facility] Comment on above: Performed By: #### L 500.4050, L100.0100 ####[facility] [address] [place], [address] GFR/1.73 sq M.predicted among non-blacks MDRD (S/P/Bld) [Vol rate/Area] 60 mL/min/{1.73_m2} Normal >60 [facility] Comment on above: Result Comment: Non- GFR Calc Performed By: #### L 500.4050, L100.0100 ####[facility] [address] [place], [address] Globulin (S) [Mass/Vol] 3.7 g/dL Normal 2.2-4.2 [facility] Comment on above: Performed By: #### L 500.4050, L100.0100 ####[facility] [address] [place], [address] Glucose [Mass/Vol] 99 mg/dL Normal 74-106 [facility] Comment on above: Performed By: #### L 500.4050, L100.0100 ####[facility] [address] [place], [address] Potassium [Moles/Vol] 4.3 mmol/L Normal 3.5-5.1 [facility] Comment on above: Performed By: #### L 500.4050, L100.0100 ####[facility] [address] [place], [address] Sodium [Moles/Vol] 135 mmol/L Low 136-145 [facility] Comment on above: Performed By: #### L 500.4050, L100.0100 ####[facility] [address] [place], [address] T PROT 7.5 g/dL Normal 6.4-8.2 [facility] Comment on above: Performed By: #### L 500.4050, L100.0100 ####[facility] [address] [place], [place], [address] Urea nitrogen [Mass/Vol] 16 mg/dL Normal 7-18 [facility] Comment on above: Performed By: #### L 500.4050, L100.0100 ####[facility] [address] [place], [address] Eosinophil percentageOrdered By: Marielabruce Olson on 09-05-2024 Eosinophils/100 WBC (Bld) 3.1 % 0-5 [facility] Erythrocyte distribution wid th ratioOrdered By: [facility] on 09-05-2024 Erythrocyte distribution width (RBC) [Ratio] 13.3 % 11.6-14.6 [facility] Erythrocyte distribution wid th standard deviationOrdered By: Mariela Shahram on 09-05-2024 Erythrocyte distribution width (RBC) [Entitic vol] 43.2 fL 35.1-43.9 [facility] Erythrocyte distribution width (RBC) [Ratio] 43.2 fl 35.1-43.9 [facility] Estimated glomerular filtrat ion rate (GFR) AmericanOrdered By: Marielabruce Olson on 09-05-2024 Estimated GFR (MDRD) Amer 73 mL/min >60 [facility] Comment on above: GFR Calc Glomerular filtration rate ( GFR) estimationOrdered By: Mariela Olson on 09-05-2024 Estimated GFR (MDRD) Non-Af Amer 60 mL/min >60 [facility] Comment on above: Non- GFR Calc GFR/1.73 sq M.predicted among non-blacks MDRD (S/P/Bld) [Vol rate/Area] 60 mL/min/{1.73_m2} >60 [facility] Comment on above: Non- GFR Calc Glucose measurementOrdered B y: Mariela Olson on 09-05-2024 Glucose [Mass/Vol] 99 mg/dL 74-106 [facility] Hematocrit Auto (Bld) [Volum e fraction]Ordered By: Mariela Olson on 09-05-2024 Hematocrit (Bld) [Volume fraction] 39.9 % Low 40-54 [facility] Hemoglobin measurementOrdere d By: Mariela Olson on 09-05-2024 Hemoglobin (Bld) [Mass/Vol] 13.3 g/dL 13.0-16.5 [facility] Immature granulocytes/100 WB C Auto (Bld)Ordered By: Mariela Olson on 09-05-2024 Immature granulocytes/100 WBC (Bld) 0.200 % 0.0-0.9 [facility] Comment on above: IG% - Immature Granu locytes (promyelocytes, myelocytes and metamyelocytes) > 1% indicates that a LEFT SHIFT is Present. Laboratory - Chemistry and C hemistry - challengeOrdered By: Mariela Olson on 09-05-2024 AST [Catalytic activity/Vol] 27 U/L 15-37 [facility] Lymphocytes Auto (Unsp spec) [#/Vol]Ordered By: Marielabruce Olson on 09-05-2024 Lymphocytes (Bld) [#/Vol] 1.41 10*3/uL 0.83-4.51 [facility] Lymphocytes/100 WBC Auto (Un sp spec)Ordered By: Mariela Olson on 09-05-2024 Lymphocytes/100 WBC (Bld) 22.2 % 19-41 [facility] MCV (mean corpuscular volume ) determinationOrdered By: Mariela Olson on 09-05-2024 MCV (RBC) [Entitic vol] 88.7 fL 80-94 [facility] Mean corpuscular hemoglobin (MCH) determinationOrdered By: Mariela Olson on 09-05-2024 MCH (RBC) [Entitic mass] 29.6 pg 27.0-32.0 [facility] Mean corpuscular hemoglobin concentration (MCHC) determinationOrdered By: Marielabruce Olson on 09-05-2024 MCHC (RBC) [Mass/Vol] 33.3 g/dL 32-36 [facility] Mean platelet volume determi nationOrdered By: Mariela Olson on 09-05-2024 Platelet mean volume (Bld) [Entitic vol] 9.8 fL 6.2-12.0 [facility] Monocyte percentageOrdered B y: Mariela Olson on 09-05-2024 Monocytes/100 WBC (Bld) 10.2 % High 0-10 [facility] Neutrophil percentageOrdered By: Mariela Olson on 09-05-2024 Neutrophils/100 WBC (Bld) 64.0 % 47-70 [facility] No Panel InformationOrdered By: Mariela Olson on 09-05-2024 27 U/L 15-37 [facility] Nucleated red blood cell per centageOrdered By: Mariela Olson on 09-05-2024 Nucleated RBC/100 WBC (Bld) [Ratio] 0 % 0-5 [facility] Platelet countOrdered By: Ra caio Olson on 09-05-2024 Platelets (Bld) [#/Vol] 274 10*3/uL 150-450 [facility] Potassium measurementOrdered By: Mariela Olson on 09-05-2024 Potassium [Moles/Vol] 4.3 mmol/L 3.5-5.1 [facility] RBC Auto (Bld) [#/Vol]Ordere d By: Mariela Olson on 09-05-2024 RBC (Bld) [#/Vol] 4.50 10*6/uL Low 4.6-6.2 [facility] Serum anion gap measurementO rdered By: Mariela Olson on 09-05-2024 Anion gap [Moles/Vol] 7 mmol/L 5-15 [facility] Serum globulin measurementOr dered By: Mariela Olson on 09-05-2024 Globulin (S) [Mass/Vol] 3.7 g/dL 2.2-4.2 [facility] Serum or plasma alanine carrion otransferase (ALT) measurementOrdered By: Mariela Olson on 09-05-2024 ALT [Catalytic activity/Vol] 30 U/L 16-61 [facility] Serum or plasma albumin shagufta urement (mass/volume)Ordered By: Mariela Olson on 09-05-2024 Albumin [Mass/Vol] 3.8 g/dL 3.2-5.0 [facility] [facility] Serum or plasma alkaline airam sphatase measurementOrdered By: Mariela Olson on 09-05-2024 ALP [Catalytic activity/Vol] 106 U/L 45-117 [facility] Serum or plasma calcium shagufta urement (mass/volume)Ordered By: Mariela Olson 09-05-2024 Calcium [Mass/Vol] 9.8 mg/dL 8.5-10.1 [facility] Serum or plasma creatinine m easurement (mass/volume)Ordered By: Mariela Cifuentesgar on 09-05-2024 Creatinine [Mass/Vol] 1.23 mg/dL 0.70-1.30 [facility] Comment on above: The validity of the calculated GFR & GFRAA in patients over 70 years has not been determined. Clinical correlation is essential. Serum or plasma urea nitroge n measurement (mass/volume)Ordered By: Mariela Olson on 09-05-2024 Urea nitrogen [Mass/Vol] 16 mg/dL 7-18 [facility] Sodium levelOrdered By: Ana M el Shahram on 09-05-2024 Sodium [Moles/Vol] 135 mmol/L Low 136-145 [facility] Total proteinOrdered By: Hortencia bruce Shahram on 09-05-2024 Protein [Mass/Vol] 7.5 g/dL 6.4-8.2 [facility] White blood cell (WBC) count Ordered By: Mariela Olson on 09-05-2024 WBC (Bld) [#/Vol] 6.4 10*3/uL 4.4-11.0 [facility] Oncology Visit Reporton Oncology Visit Report Normal [facility] Carcinoembryonic Antigenon 09-19-2023 CEA 6.6 ng/mL High 0.0-4.7 [facility] Comment on above: Result Comment: Nons mokers <3.9 Smokers <5.6[employer] Electrochemiluminescence Immunoassay(ECLIA)Values obtained with different assay methods or kitscannot be used interchangeably. Results cannot beinterpreted as absolute evidence of the presence orabsence of malignant disease.Performed at: [employer] [address] [id number] Director: Jian Paredes PhD, Phone: [phone] Performed By: #### L 500.9886, L100.0100, L3100.7404 ####[facility] [address] [place], [place], [id number] CBC W/Diff, Automatedon 12- Absolute Lymph 1.90 X10 3/uL Normal 0.83-4.51 [facility] Comment on above: Performed By: #### L 500.4050, L100.0100, L3100.2300 ####[facility] [address] [place], [address] Absolute Neut 3.9 X10 3/uL Normal 2.0-7.7 [facility] Comment on above: Performed By: #### L 500.4050, L100.0100, L3100.2300 ####[facility] [address] [place], [address] Basophils/100 WBC (Bld) 0.3 % Normal 0-1 [facility] Comment on above: Performed By: #### L 500.4050, L100.0100, L3100.2300 ####[facility] [address] [place], [address] Eosinophils/100 WBC (Bld) 5.3 % High 0-5 [facility] Comment on above: Performed By: #### L 500.4050, L100.0100, L3100.2300 ####[facility] [address] [place], [address] Erythrocyte distribution width (RBC) [Ratio] 17.1 % High 11.6-14.6 [facility] Comment on above: Performed By: #### L 500.4050, L100.0100, L3100.2300 ####[facility] [address] [place], [address] Hematocrit (Bld) [Volume fraction] 36.4 % Low 40-54 [facility] Comment on above: Performed By: #### L 500.4050, L100.0100, L3100.2300 ####[facility] [address] [place], [address] Hemoglobin (Bld) [Mass/Vol] 11.8 g/dL Low 13.0-16.5 [facility] Comment on above: Performed By: #### L 500.4050, L100.0100, L3100.2300 ####[facility] [address] [place], [address] IG% 0.300 Normal 0.0-0.9 [facility] Comment on above: Result Comment: IG% - Immature Granulocytes (promyelocytes, myelocytes andmetamyelocytes) > 1% indicates that a LEFT SHIFT is Present. Performed By: #### L 500.4050, L100.0100, L3100.2300 ####[facility] [address] [place], [address] Lymphocytes/100 WBC (Bld) 27.4 % Normal 19-41 [facility] Comment on above: Performed By: #### L 500.4050, L100.0100, L3100.2300 ####[facility] [address] [place], [address] MCH (RBC) [Entitic mass] 28.1 pg Normal 27.0-32.0 [facility] Comment on above: Performed By: #### L 500.4050, L100.0100, L3100.2300 ####[facility] [address] [place], [address] MCHC (RBC) [Mass/Vol] 32.4 g/dL Normal 32-36 [facility] Comment on above: Performed By: #### L 500.4050, L100.0100, L3100.2300 ####[facility] [address] [place], [address] MCV (RBC) [Entitic vol] 86.7 fL Normal 80-94 [facility] Comment on above: Performed By: #### L 500.4050, L100.0100, L3100.2300 ####[facility] [address] [place], [address] Monocytes/100 WBC (Bld) 11.1 % High 0-10 [facility] Comment on above: Performed By: #### L 500.4050, L100.0100, L3100.2300 ####[facility] [address] [place], [address] Neutrophils/100 WBC (Bld) 55.6 % Normal 47-70 [facility] Comment on above: Performed By: #### L 500.4050, L100.0100, L3100.2300 ####[facility] [address] [place], [address] Nucleated RBC (Bld) [#/Vol] 0 10*3/uL Normal 0-5 [facility] Comment on above: Performed By: #### L 500.4050, L100.0100, L3100.2300 ####[facility] [address] [place], [address] Platelet mean volume (Bld) [Entitic vol] 9.4 fL Normal 6.2-12.0 [facility] Comment on above: Performed By: #### L 500.4050, L100.0100, L3100.2300 ####[facility] [address] [place], [address] Platelets (Bld) [#/Vol] 230 10*3/uL Normal 150-450 [facility] Comment on above: Performed By: #### L 500.4050, L100.0100, L3100.2300 ####[facility] [address] [place], [address] RBC (Bld) [#/Vol] 4.20 10*6/uL Low 4.6-6.2 [facility] Comment on above: Performed By: #### L 500.4050, L100.0100, L3100.2300 ####[facility] [address] [place], [address] RDW SD 54.4 fl High 35.1-43.9 [facility] Comment on above: Performed By: #### L 500.4050, L100.0100, L3100.2300 ####[facility] [address] [place], [address] WBC (Bld) [#/Vol] 6.9 10*3/uL Normal 4.4-11.0 [facility] Comment on above: Performed By: #### L 500.4050, L100.0100, L3100.2300 ####[facility] [address] [place], [address] Comprehensive Metabolic [facility] 07-18-2024 Albumin [Mass/Vol] 3.6 g/dL Normal 3.2-5.0 [facility] Comment on above: Performed By: #### L 500.4050, L100.0100, L3100.2300 ####[facility] [address] [place], [address] Albumin/Globulin [Mass ratio] 1.0 {ratio} Normal 0.9-2.4 [facility] Comment on above: Performed By: #### L 500.4050, L100.0100, L3100.2300 ####[facility] [address] [place], [address] ALK P 114 U/L Normal 45-117 [facility] Comment on above: Performed By: #### L 500.4050, L100.0100, L3100.2300 ####[facility] [address] [place], [address] ALT [Catalytic activity/Vol] 33 U/L Normal 16-61 [facility] Comment on above: Performed By: #### L 500.4050, L100.0100, L3100.2300 ####[facility] [address] [place], [address] AST [Catalytic activity/Vol] 25 U/L Normal 15-37 [facility] Comment on above: Performed By: #### L 500.4050, L100.0100, L3100.2300 ####[facility] [address] [place], [address] Bilirubin [Mass/Vol] 0.30 mg/dL Normal 0.20-1.00 [facility] Comment on above: Result Comment: For patients on eltrombopag therapy, use of Dimension [place] TBIL is not recommended. Performed By: #### L 500.4050, L100.0100, L3100.2300 ####[facility] [address] [place], [address] BUN/CRE 14.8 RATIO Normal 10-20 [facility] Comment on above: Performed By: #### L 500.4050, L100.0100, L3100.2300 ####[facility] [address] [place], [address] CA,Total 9.0 mg/dL Normal 8.5-10.1 [facility] Comment on above: Performed By: #### L 500.4050, L100.0100, L3100.2300 ####[facility] [address] [place], [address] Chloride [Moles/Vol] 104 mmol/L Normal 98-107 [facility] Comment on above: Performed By: #### L 500.4050, L100.0100, L3100.2300 ####[facility] [address] [place], [address] CO2 [Moles/Vol] 30.0 mmol/L Normal 21.0-32.0 [facility] Comment on above: Performed By: #### L 500.4050, L100.0100, L3100.2300 ####[facility] [address] [place], [address] Creatinine [Mass/Vol] 1.15 mg/dL Normal 0.70-1.30 [facility] Comment on above: Result Comment: The validity of the calculated GFR GFRAA in patients over70 years has not been determined. Clinical correlation isessential. Performed By: #### L 500.4050, L100.0100, L3100.2300 ####[facility] [address] [place], [address] ECRCL 47.90 ml/min Normal [facility] Comment on above: Performed By: #### L 500.4050, L100.0100, L3100.2300 ####[facility] [address] [place], [address] EST GFR - AA 79 mL/min Normal >60 [facility] Comment on above: Result Comment: Afri can Swiss GFR Calc Performed By: #### L 500.4050, L100.0100, L3100.2300 ####[facility] [address] [place], [address] GAP 2 Low 5-15 [facility] Comment on above: Performed By: #### L 500.4050, L100.0100, L3100.2300 ####[facility] [address] [place], [address] GFR/1.73 sq M.predicted among non-blacks MDRD (S/P/Bld) [Vol rate/Area] 65 mL/min/{1.73_m2} Normal >60 [facility] Comment on above: Result Comment: Non- GFR Calc Performed By: #### L 500.4050, L100.0100, L3100.2300 ####[facility] [address] [place], [address] Globulin (S) [Mass/Vol] 3.6 g/dL Normal 2.2-4.2 [facility] Comment on above: Performed By: #### L 500.4050, L100.0100, L3100.2300 ####[facility] [address] [place], [address] Glucose [Mass/Vol] 105 mg/dL Normal 74-106 [facility] Comment on above: Result Comment: Fast ing Glucose result from 100 to 125 mg/dLsuggests IMPAIRED HOMEOSTASIS per A.D.A. criteria. Performed By: #### L 500.4050, L100.0100, L3100.2300 ####[facility] [address] [place], [address] Potassium [Moles/Vol] 4.0 mmol/L Normal 3.5-5.1 [facility] Comment on above: Performed By: #### L 500.4050, L100.0100, L3100.2300 ####[facility] [address] [place], [address] Sodium [Moles/Vol] 136 mmol/L Normal 136-145 [facility] Comment on above: Performed By: #### L 500.4050, L100.0100, L3100.2300 ####[facility] [address] [place], [address] T PROT 7.2 g/dL Normal 6.4-8.2 [facility] Comment on above: Performed By: #### L 500.4050, L100.0100, L3100.2300 ####[facility] [address] [place], [address] Urea nitrogen [Mass/Vol] 17 mg/dL Normal 7-18 [facility] Comment on above: Performed By: #### L 500.4050, L100.0100, L3100.2300 ####[facility] [address] [place], [address] Estimated glomerular filtrat ion rate (GFR) AmericanOrdered By: Papi Hernandez on 07-18-2024 Estimated GFR (MDRD) Amer 79 mL/min >60 [facility] Comment on above: GFR Calc Oncology Visit Reporton 07-01 Oncology Visit Report Normal [facility] CBC W/Diff, Automatedon Absolute Lymph 1.59 X10 3/uL Normal 0.83-4.51 [facility] Comment on above: Performed By: #### L 300.3900, L100.0100 ####[facility] [address] [place], [address] Absolute Neut 3.4 X10 3/uL Normal 2.0-7.7 [facility] Comment on above: Performed By: #### L 300.3900, L100.0100 ####[facility] [address] [place], [address] Basophils/100 WBC (Bld) 0.5 % Normal 0-1 [facility] Comment on above: Performed By: #### L 300.3900, L100.0100 ####[facility] [address] [place], [address] Eosinophils/100 WBC (Bld) 4.7 % Normal 0-5 [facility] Comment on above: Performed By: #### L 300.3900, L100.0100 ####[facility] [address] [place], [address] Erythrocyte distribution width (RBC) [Ratio] 17.5 % High 11.6-14.6 [facility] Comment on above: Performed By: #### L 300.3900, L100.0100 ####[facility] [address] [place], [address] Hematocrit (Bld) [Volume fraction] 36.9 % Low 40-54 [facility] Comment on above: Performed By: #### L 300.3900, L100.0100 ####[facility] [address] [place], [address] Hemoglobin (Bld) [Mass/Vol] 11.5 g/dL Low 13.0-16.5 [facility] Comment on above: Performed By: #### L 300.3900, L100.0100 ####[facility] [address] [place], [address] IG% 0.300 Normal 0.0-0.9 [facility] Comment on above: Result Comment: IG% - Immature Granulocytes (promyelocytes, myelocytes andmetamyelocytes) > 1% indicates that a LEFT SHIFT is Present. Performed By: #### L 300.3900, L100.0100 ####[facility] [address] [place], [address] Lymphocytes/100 WBC (Bld) 26.6 % Normal 19-41 [facility] Comment on above: Performed By: #### L 300.3900, L100.0100 ####[facility] [address] [place], [address] MCH (RBC) [Entitic mass] 27.1 pg Normal 27.0-32.0 [facility] Comment on above: Performed By: #### L 300.3900, L100.0100 ####[facility] [address] [place], [address] MCHC (RBC) [Mass/Vol] 31.2 g/dL Low 32-36 [facility] Comment on above: Performed By: #### L 300.3900, L100.0100 ####[facility] [address] [place], [address] MCV (RBC) [Entitic vol] 87.0 fL Normal 80-94 [facility] Comment on above: Performed By: #### L 300.3900, L100.0100 ####[facility] [address] [place], [address] Monocytes/100 WBC (Bld) 10.5 % High 0-10 [facility] Comment on above: Performed By: #### L 300.3900, L100.0100 ####[facility] [address] [place], [address] Neutrophils/100 WBC (Bld) 57.4 % Normal 47-70 [facility] Comment on above: Performed By: #### L 300.3900, L100.0100 ####[facility] [address] [place], [address] Nucleated RBC (Bld) [#/Vol] 0 10*3/uL Normal 0-5 [facility] Comment on above: Performed By: #### L 300.3900, L100.0100 ####[facility] [address] [place], [address] Platelet mean volume (Bld) [Entitic vol] 9.2 fL Normal 6.2-12.0 [facility] Comment on above: Performed By: #### L 300.3900, L100.0100 ####[facility] [address] [place], [address] Platelets (Bld) [#/Vol] 316 10*3/uL Normal 150-450 [facility] Comment on above: Performed By: #### L 300.3900, L100.0100 ####[facility] [address] [place], [address] RBC (Bld) [#/Vol] 4.24 10*6/uL Low 4.6-6.2 [facility] Comment on above: Performed By: #### L 300.3900, L100.0100 ####[facility] [address] [place], [address] RDW SD 56.3 fl High 35.1-43.9 [facility] Comment on above: Performed By: #### L 300.3900, L100.0100 ####[facility] [address] [place], [address] WBC (Bld) [#/Vol] 6.0 10*3/uL Normal 4.4-11.0 [facility] Comment on above: Performed By: #### L 300.3900, L100.0100 ####[facility] [address] [place], [address] International normalized rat io (INR) calculationOrdered By: Sunny Mancia on 07-04-2024 INR Coag (Bld) [Relative time] 1.0 {INR} [facility] NATERAon 07-04-2024 NATURA SEE SCANNED REPORT Normal [facility] Comment on above: Performed By: #### L 900.0098 ####[facility] [address] [place], [address] Oncology Visit Reporton Oncology Visit Report Normal [facility] Prothrombin Time w/INRon INR Coag (PPP) [Relative time] 1.0 {INR} Normal [facility] Comment on above: Performed By: #### L 300.3900, L100.0100 ####[facility] [address] [place], [address] PT Coag (PPP) [Time] 12.8 s Normal 11.7-14.9 [facility] Comment on above: Performed By: #### L 300.3900, L100.0100 ####[facility] [address] [place], [address] Prothrombin timeOrdered By: Sunny Mancia on 07-04-2024 PT Coag (PPP) [Time] 12.8 s 11.7-14.9 [facility] Bronchoscopy Reporton 2023 Bronchoscopy Report Normal [facility] CK7 (initial)on 06-22-2024 CK7 (initial) Normal [facility] Comment on above: Performed By: #### P CK7 ####[facility] [address] [place], [address] EGD Reporton 06-22-2024 EGD Report Normal [facility] H Pylori (initial)on 024 H Pylori (initial) Normal [facility] Comment on above: Performed By: #### P H.PYLORI ####[facility] [address] [place], [address] MR/POSTOP.ANEon 06-22-2024 MR/POSTOP.ANE Normal [facility] MR/OYABSSJD3yp 06-22-2024 MR/POSTOPAN2 Normal [facility] Special Stain Group Ion 06-02 Special Stain Group I Normal [facility] Comment on above: Performed By: #### P SSI ####[facility] [address] [place], [address] Surgery Specimen Level Oscar 06-22-2024 Surgery Specimen Level IV Normal [facility] Comment on above: Performed By: #### P SUIV ####[facility] [address] [place], [address] CBC W/Diff, Automatedon 06-01 Absolute Lymph 1.50 X10 3/uL Normal 0.83-4.51 [facility] Comment on above: Order Comment: Comme nts: Post-operatively Performed By: #### L 100.0100 ####[facility] [address] [place], [address] Absolute Neut 5.3 X10 3/uL Normal 2.0-7.7 [facility] Comment on above: Order Comment: Comme nts: Post-operatively Performed By: #### L 100.0100 ####[facility] [address] [place], [address] Basophils/100 WBC (Bld) 0.3 % Normal 0-1 [facility] Comment on above: Order Comment: Comme nts: Post-operatively Performed By: #### L 100.0100 ####[facility] [address] [place], [address] Eosinophils/100 WBC (Bld) 1.8 % Normal 0-5 [facility] Comment on above: Order Comment: Comme nts: Post-operatively Performed By: #### L 100.0100 ####[facility] [address] [place], [address] Erythrocyte distribution width (RBC) [Ratio] 18.0 % High 11.6-14.6 [facility] Comment on above: Order Comment: Comme nts: Post-operatively Performed By: #### L 100.0100 ####[facility] [address] [place], [address] Hematocrit (Bld) [Volume fraction] 36.1 % Low 40-54 [facility] Comment on above: Order Comment: Comme nts: Post-operatively Performed By: #### L 100.0100 ####[facility] [address] [place], [address] Hemoglobin (Bld) [Mass/Vol] 11.3 g/dL Low 13.0-16.5 [facility] Comment on above: Order Comment: Comme nts: Post-operatively Performed By: #### L 100.0100 ####[facility] [address] [place], [address] IG% 0.400 Normal 0.0-0.9 [facility] Comment on above: Order Comment: Comme nts: Post-operatively Result Comment: IG% - Immature Granulocytes (promyelocytes, myelocytes andmetamyelocytes) > 1% indicates that a LEFT SHIFT is Present. Performed By: #### L 100.0100 ####[facility] [address] [place], [address] Lymphocytes/100 WBC (Bld) 19.5 % Normal 19-41 [facility] Comment on above: Order Comment: Comme nts: Post-operatively Performed By: #### L 100.0100 ####[facility] [address] [place], [address] MCH (RBC) [Entitic mass] 27.0 pg Normal 27.0-32.0 [facility] Comment on above: Order Comment: Comme nts: Post-operatively Performed By: #### L 100.0100 ####[facility] [address] [place], [address] MCHC (RBC) [Mass/Vol] 31.3 g/dL Low 32-36 [facility] Comment on above: Order Comment: Comme nts: Post-operatively Performed By: #### L 100.0100 ####[facility] [address] [place], [address] MCV (RBC) [Entitic vol] 86.4 fL Normal 80-94 [facility] Comment on above: Order Comment: Comme nts: Post-operatively Performed By: #### L 100.0100 ####[facility] [address] [place], [address] Monocytes/100 WBC (Bld) 9.2 % Normal 0-10 [facility] Comment on above: Order Comment: Comme nts: Post-operatively Performed By: #### L 100.0100 ####[facility] [address] [place], [address] Neutrophils/100 WBC (Bld) 68.8 % Normal 47-70 [facility] Comment on above: Order Comment: Comme nts: Post-operatively Performed By: #### L 100.0100 ####[facility] [address] [place], [address] Nucleated RBC (Bld) [#/Vol] 0 10*3/uL Normal 0-5 [facility] Comment on above: Order Comment: Comme nts: Post-operatively Performed By: #### L 100.0100 ####[facility] [address] [place], [address] Platelet mean volume (Bld) [Entitic vol] 9.3 fL Normal 6.2-12.0 [facility] Comment on above: Order Comment: Comme nts: Post-operatively Performed By: #### L 100.0100 ####[facility] [address] [place], [address] Platelets (Bld) [#/Vol] 294 10*3/uL Normal 150-450 [facility] Comment on above: Order Comment: Comme nts: Post-operatively Performed By: #### L 100.0100 ####[facility] [address] [place], [address] RBC (Bld) [#/Vol] 4.18 10*6/uL Low 4.6-6.2 [facility] Comment on above: Order Comment: Comme nts: Post-operatively Performed By: #### L 100.0100 ####[facility] [address] [place], [address] RDW SD 57.7 fl High 35.1-43.9 [facility] Comment on above: Order Comment: Comme nts: Post-operatively Performed By: #### L 100.0100 ####[facility] [address] [place], [address] WBC (Bld) [#/Vol] 7.7 10*3/uL Normal 4.4-11.0 [facility] Comment on above: Order Comment: Comme nts: Post-operatively Performed By: #### L 100.0100 ####[facility] [address] [place], [address] Pulmonary Visit Reporton Pulmonary Visit Report Normal [facility] Basic Metabolic Profile (BMP )on 06-10-2024 BUN/CRE 17.0 RATIO Normal 10-20 [facility] Comment on above: Performed By: #### L 500.2500, L100.0100 ####[facility] [address] [place], [address] CA,Total 8.7 mg/dL Normal 8.5-10.1 [facility] Comment on above: Performed By: #### L 500.2500, L100.0100 ####[facility] [address] [place], [address] Chloride [Moles/Vol] 108 mmol/L High 98-107 [facility] Comment on above: Performed By: #### L 500.2500, L100.0100 ####[facility] [address] [place], [address] CO2 [Moles/Vol] 26.0 mmol/L Normal 21.0-32.0 [facility] Comment on above: Performed By: #### L 500.2500, L100.0100 ####[facility] [address] [place], [address] Creatinine [Mass/Vol] 1.12 mg/dL Normal 0.70-1.30 [facility] Comment on above: Result Comment: The validity of the calculated GFR GFRAA in patients over70 years has not been determined. Clinical correlation isessential. Performed By: #### L 500.2500, L100.0100 ####[facility] [address] [place], [address] ECRCL 49.18 ml/min Normal [facility] Comment on above: Performed By: #### L 500.2500, L100.0100 ####[facility] [address] [place], [address] EST GFR - AA 81 mL/min Normal >60 [facility] Comment on above: Result Comment: Afri can Swiss GFR Calc Performed By: #### L 500.2500, L100.0100 ####[facility] [address] [place], [address] GAP 4 Low 5-15 [facility] Comment on above: Performed By: #### L 500.2500, L100.0100 ####[facility] [address] [place], [address] GFR/1.73 sq M.predicted among non-blacks MDRD (S/P/Bld) [Vol rate/Area] 67 mL/min/{1.73_m2} Normal >60 [facility] Comment on above: Result Comment: Non- GFR Calc Performed By: #### L 500.2500, L100.0100 ####[facility] [address] [place], [address] Glucose [Mass/Vol] 100 mg/dL Normal 74-106 [facility] Comment on above: Result Comment: Fast ing Glucose result from 100 to 125 mg/dLsuggests IMPAIRED HOMEOSTASIS per A.D.A. criteria. Performed By: #### L 500.2500, L100.0100 ####[facility] [address] [place], [address] Potassium [Moles/Vol] 4.2 mmol/L Normal 3.5-5.1 [facility] Comment on above: Performed By: #### L 500.2500, L100.0100 ####[facility] [address] [place], [address] Sodium [Moles/Vol] 138 mmol/L Normal 136-145 [facility] Comment on above: Performed By: #### L 500.2500, L100.0100 ####[facility] [address] [place], [address] Urea nitrogen [Mass/Vol] 19 mg/dL High 7-18 [facility] Comment on above: Performed By: #### L 500.2500, L100.0100 ####[facility] [address] [place], [address] CBC W/Diff, Automatedon 11- 0-4 Absolute Lymph 1.57 X10 3/uL Normal 0.83-4.51 [facility] Comment on above: Performed By: #### L 500.2500, L100.0100 ####[facility] [address] [place], [address] Absolute Neut 3.5 X10 3/uL Normal 2.0-7.7 [facility] Comment on above: Performed By: #### L 500.2500, L100.0100 ####[facility] [address] [place], [address] Basophils/100 WBC (Bld) 0.2 % Normal 0-1 [facility] Comment on above: Performed By: #### L 500.2500, L100.0100 ####[facility] [address] [place], [address] Eosinophils/100 WBC (Bld) 3.9 % Normal 0-5 [facility] Comment on above: Performed By: #### L 500.2500, L100.0100 ####[facility] [address] [place], [address] Erythrocyte distribution width (RBC) [Ratio] 18.6 % High 11.6-14.6 [facility] Comment on above: Performed By: #### L 500.2500, L100.0100 ####[facility] [address] [place], [address] Hematocrit (Bld) [Volume fraction] 32.1 % Low 40-54 [facility] Comment on above: Performed By: #### L 500.2500, L100.0100 ####[facility] [address] [place], [address] Hemoglobin (Bld) [Mass/Vol] 10.2 g/dL Low 13.0-16.5 [facility] Comment on above: Performed By: #### L 500.2500, L100.0100 ####[facility] [address] [place], [address] IG% 0.300 Normal 0.0-0.9 [facility] Comment on above: Result Comment: IG% - Immature Granulocytes (promyelocytes, myelocytes andmetamyelocytes) > 1% indicates that a LEFT SHIFT is Present. Performed By: #### L 500.2500, L100.0100 ####[facility] [address] [place], [address] Lymphocytes/100 WBC (Bld) 25.7 % Normal 19-41 [facility] Comment on above: Performed By: #### L 500.2500, L100.0100 ####[facility] [address] [place], [address] MCH (RBC) [Entitic mass] 27.1 pg Normal 27.0-32.0 [facility] Comment on above: Performed By: #### L 500.2500, L100.0100 ####[facility] [address] [place], [address] MCHC (RBC) [Mass/Vol] 31.8 g/dL Low 32-36 [facility] Comment on above: Performed By: #### L 500.2500, L100.0100 ####[facility] [address] [place], [address] MCV (RBC) [Entitic vol] 85.4 fL Normal 80-94 [facility] Comment on above: Performed By: #### L 500.2500, L100.0100 ####[facility] [address] [place], [address] Monocytes/100 WBC (Bld) 12.4 % High 0-10 [facility] Comment on above: Performed By: #### L 500.2500, L100.0100 ####[facility] [address] [place], [address] Neutrophils/100 WBC (Bld) 57.5 % Normal 47-70 [facility] Comment on above: Performed By: #### L 500.2500, L100.0100 ####[facility] [address] [place], [address] Nucleated RBC (Bld) [#/Vol] 0 10*3/uL Normal 0-5 [facility] Comment on above: Performed By: #### L 500.2500, L100.0100 ####[facility] [address] [place], [address] Platelet mean volume (Bld) [Entitic vol] 9.6 fL Normal 6.2-12.0 [facility] Comment on above: Performed By: #### L 500.2500, L100.0100 ####[facility] [address] [place], [address] Platelets (Bld) [#/Vol] 275 10*3/uL Normal 150-450 [facility] Comment on above: Performed By: #### L 500.2500, L100.0100 ####[facility] [address] [place], [address] RBC (Bld) [#/Vol] 3.76 10*6/uL Low 4.6-6.2 [facility] Comment on above: Performed By: #### L 500.2500, L100.0100 ####[facility] [address] [place], [address] RDW SD 58.0 fl High 35.1-43.9 [facility] Comment on above: Performed By: #### L 500.2500, L100.0100 ####[facility] [address] [place], [address] WBC (Bld) [#/Vol] 6.1 10*3/uL Normal 4.4-11.0 [facility] Comment on above: Performed By: #### L 500.2500, L100.0100 ####[facility] [address] [place], [address] Discharge Instructionon 06-01 Discharge Instruction Normal [facility] BRCon 06-09-2024 RC Normal Neg [facility] Comment on above: Result Comment: [id number] OP RC TRANSFUSED 06/09/24 1143 Performed By: #### B , [facility] ####[facility] [address] [place], [address] CBC W/Diff, Automatedon 11- Absolute Lymph 1.40 X10 3/uL Normal 0.83-4.51 [facility] Comment on above: Performed By: #### L 100.0100, L500.4050, L501.5200 ####[facility] [address] [place], [address] Absolute Neut 4.2 X10 3/uL Normal 2.0-7.7 [facility] Comment on above: Performed By: #### L 100.0100, L500.4050, L501.5200 ####[facility] [address] [place], [address] Basophils/100 WBC (Bld) 0.3 % Normal 0-1 [facility] Comment on above: Performed By: #### L 100.0100, L500.4050, L501.5200 ####[facility] [address] [place], [address] Eosinophils/100 WBC (Bld) 3.2 % Normal 0-5 [facility] Comment on above: Performed By: #### L 100.0100, L500.4050, L501.5200 ####[facility] [address] [place], [address] Erythrocyte distribution width (RBC) [Ratio] 19.2 % High 11.6-14.6 [facility] Comment on above: Performed By: #### L 100.0100, L500.4050, L501.5200 ####[facility] [address] [place], [address] Hematocrit (Bld) [Volume fraction] 26.4 % Low 40-54 [facility] Comment on above: Performed By: #### L 100.0100, L500.4050, L501.5200 ####[facility] [address] [place], [address] Hemoglobin (Bld) [Mass/Vol] 8.2 g/dL Low 13.0-16.5 [facility] Comment on above: Performed By: #### L 100.0100, L500.4050, L501.5200 ####[facility] [address] [place], [address] IG% 0.300 Normal 0.0-0.9 [facility] Comment on above: Result Comment: IG% - Immature Granulocytes (promyelocytes, myelocytes andmetamyelocytes) > 1% indicates that a LEFT SHIFT is Present. Performed By: #### L 100.0100, L500.4050, L501.5200 ####[facility] [address] [place], [address] Lymphocytes/100 WBC (Bld) 21.6 % Normal 19-41 [facility] Comment on above: Performed By: #### L 100.0100, L500.4050, L501.5200 ####[facility] [address] [place], [address] MCH (RBC) [Entitic mass] 26.8 pg Low 27.0-32.0 [facility] Comment on above: Performed By: #### L 100.0100, L500.4050, L501.5200 ####[facility] [address] [place], [address] MCHC (RBC) [Mass/Vol] 31.1 g/dL Low 32-36 [facility] Comment on above: Performed By: #### L 100.0100, L500.4050, L501.5200 ####[facility] [address] [place], [address] MCV (RBC) [Entitic vol] 86.3 fL Normal 80-94 [facility] Comment on above: Performed By: #### L 100.0100, L500.4050, L501.5200 ####[facility] [address] [place], [address] Monocytes/100 WBC (Bld) 10.2 % High 0-10 [facility] Comment on above: Performed By: #### L 100.0100, L500.4050, L501.5200 ####[facility] [address] [place], [address] Neutrophils/100 WBC (Bld) 64.4 % Normal 47-70 [facility] Comment on above: Performed By: #### L 100.0100, L500.4050, L501.5200 ####[facility] [address] [place], [address] Nucleated RBC (Bld) [#/Vol] 0 10*3/uL Normal 0-5 [facility] Comment on above: Performed By: #### L 100.0100, L500.4050, L501.5200 ####[facility] [address] [place], [address] Platelet mean volume (Bld) [Entitic vol] 9.8 fL Normal 6.2-12.0 [facility] Comment on above: Performed By: #### L 100.0100, L500.4050, L501.5200 ####[facility] [address] [place], [address] Platelets (Bld) [#/Vol] 262 10*3/uL Normal 150-450 [facility] Comment on above: Performed By: #### L 100.0100, L500.4050, L501.5200 ####[facility] [address] [place], [address] RBC (Bld) [#/Vol] 3.06 10*6/uL Low 4.6-6.2 [facility] Comment on above: Performed By: #### L 100.0100, L500.4050, L501.5200 ####[facility] [address] [place], [address] RDW SD 59.4 fl High 35.1-43.9 [facility] Comment on above: Performed By: #### L 100.0100, L500.4050, L501.5200 ####[facility] [address] [place], [address] WBC (Bld) [#/Vol] 6.5 10*3/uL Normal 4.4-11.0 [facility] Comment on above: Performed By: #### L 100.0100, L500.4050, L501.5200 ####[facility] [address] [place], [address] Comprehensive Metabolic [facility] 06-09-2024 Albumin [Mass/Vol] 2.9 g/dL Low 3.2-5.0 [facility] Comment on above: Performed By: #### L 100.0100, L500.4050, L501.5200 ####[facility] [address] [place], [address] Albumin/Globulin [Mass ratio] 1.1 {ratio} Normal 0.9-2.4 [facility] Comment on above: Performed By: #### L 100.0100, L500.4050, L501.5200 ####[facility] [address] [place], [address] ALK P 76 U/L Normal 45-117 [facility] Comment on above: Performed By: #### L 100.0100, L500.4050, L501.5200 ####[facility] [address] [place], [address] ALT [Catalytic activity/Vol] 12 U/L Low 16-61 [facility] Comment on above: Performed By: #### L 100.0100, L500.4050, L501.5200 ####[facility] [address] [place], [address] AST [Catalytic activity/Vol] 14 U/L Low 15-37 [facility] Comment on above: Performed By: #### L 100.0100, L500.4050, L501.5200 ####[facility] [address] [place], [address] Bilirubin [Mass/Vol] 0.60 mg/dL Normal 0.20-1.00 [facility] Comment on above: Result Comment: For patients on eltrombopag therapy, use of Dimension [place] TBIL is not recommended. Performed By: #### L 100.0100, L500.4050, L501.5200 ####[facility] [address] [place], [address] BUN/CRE 19.6 RATIO Normal 10-20 [facility] Comment on above: Performed By: #### L 100.0100, L500.4050, L501.5200 ####[facility] [address] [place], [address] CA,Total 7.9 mg/dL Low 8.5-10.1 [facility] Comment on above: Performed By: #### L 100.0100, L500.4050, L501.5200 ####[facility] [address] [place], [address] Chloride [Moles/Vol] 105 mmol/L Normal 98-107 [facility] Comment on above: Performed By: #### L 100.0100, L500.4050, L501.5200 ####[facility] [address] [place], [address] CO2 [Moles/Vol] 24.0 mmol/L Normal 21.0-32.0 [facility] Comment on above: Performed By: #### L 100.0100, L500.4050, L501.5200 ####[facility] [address] [place], [address] Creatinine [Mass/Vol] 1.12 mg/dL Normal 0.70-1.30 [facility] Comment on above: Result Comment: The validity of the calculated GFR GFRAA in patients over70 years has not been determined. Clinical correlation isessential. Performed By: #### L 100.0100, L500.4050, L501.5200 ####[facility] [address] [place], [address] ECRCL 49.18 ml/min Normal [facility] Comment on above: Performed By: #### L 100.0100, L500.4050, L501.5200 ####[facility] [address] [place], [address] EST GFR - AA 81 mL/min Normal >60 [facility] Comment on above: Result Comment: Afri can Swiss GFR Calc Performed By: #### L 100.0100, L500.4050, L501.5200 ####[facility] [address] [place], [address] GAP 5 Normal 5-15 [facility] Comment on above: Performed By: #### L 100.0100, L500.4050, L501.5200 ####[facility] [address] [place], [address] GFR/1.73 sq M.predicted among non-blacks MDRD (S/P/Bld) [Vol rate/Area] 67 mL/min/{1.73_m2} Normal >60 [facility] Comment on above: Result Comment: Non- GFR Calc Performed By: #### L 100.0100, L500.4050, L501.5200 ####[facility] [address] [place], [address] Globulin (S) [Mass/Vol] 2.6 g/dL Normal 2.2-4.2 [facility] Comment on above: Performed By: #### L 100.0100, L500.4050, L501.5200 ####[facility] [address] [place], [address] Glucose [Mass/Vol] 103 mg/dL Normal 74-106 [facility] Comment on above: Result Comment: Fast ing Glucose result from 100 to 125 mg/dLsuggests IMPAIRED HOMEOSTASIS per A.D.A. criteria. Performed By: #### L 100.0100, L500.4050, L501.5200 ####[facility] [address] [place], [address] Potassium [Moles/Vol] 3.9 mmol/L Normal 3.5-5.1 [facility] Comment on above: Performed By: #### L 100.0100, L500.4050, L501.5200 ####[facility] [address] [place], [address] Sodium [Moles/Vol] 135 mmol/L Low 136-145 [facility] Comment on above: Performed By: #### L 100.0100, L500.4050, L501.5200 ####[facility] [address] [place], [address] T PROT 5.5 g/dL Low 6.4-8.2 [facility] Comment on above: Performed By: #### L 100.0100, L500.4050, L501.5200 ####[facility] [address] [place], [address] Urea nitrogen [Mass/Vol] 22 mg/dL High 7-18 [facility] Comment on above: Performed By: #### L 100.0100, L500.4050, L501.5200 ####[facility] [address] [place], [address] HH, Hemoglobin AND Hematocri ton 06-09-2024 Hematocrit (Bld) [Volume fraction] 27.8 % Low 40-54 [facility] Comment on above: Performed By: #### L 100.0600 ####[facility] [address] [place], [address] Hemoglobin (Bld) [Mass/Vol] 9.0 g/dL Low 13.0-16.5 [facility] Comment on above: Performed By: #### L 100.0600 ####[facility] [address] [place], [address] L501.4020on 06-09-2024 TROPONIN-I HS 88 pg/mL High 3.0-78.0 [facility] Comment on above: Order Comment: 'TROP ' Serial specimen #1, #2 or #3: 3 Result Comment: Debi vieyra Note: New Test Units and Gender Specific Reference Ranges. For more information see Policy Stat Procedure [facility] High Sensitivity Troponin (TNIH) and attachments. Performed By: #### L 501.4020 ####[facility] [address] [place], [address] Magnesiumon 06-09-2024 Magnesium [Mass/Vol] 1.8 mg/dL Normal 1.6-2.6 [facility] Comment on above: Performed By: #### L 100.0100, L500.4050, L501.5200 ####[facility] [address] [place], [place], [id number] Type AND Screenon 06-09-2024 Ab SCREEN GEL Negative Normal [facility] Comment on above: Order Comment: CMV N EG? NNumber of units to transfuse: 1Reason for Ordering Blood: AcuteAre the blood/blood products to be transfused? YIs the patient having/had surgery? Claudine Goodman Performed By: #### Marco KANG, [facility] ####[facility] [address] [place], [place], [id number] ABO and Rh group Nom (Bld) Blood group O Rh(D) positive Normal [facility] Comment on above: Order Comment: CMV N EG? NNumber of units to transfuse: 1Reason for Ordering Blood: AcuteAre the blood/blood products to be transfused? YIs the patient having/had surgery? Claudine Goodman Performed By: #### Marco KANG, [facility] ####[facility] [address] [place], [place], [id number] Lead EKGon 06-08-2024 12 Lead EKG Normal [facility] BNP,B-Type NATRIURETIC PEPTI Иван 06-08-2024 Natriuretic peptide B (Bld) [Mass/Vol] 109.8 pg/mL High 0-100 [facility] Comment on above: Performed By: #### L 503.6620, L300.3900, L100.0100, L501.5425, L500.2500 ####[facility] [address] [place], [place], [id number] Basic Metabolic Profile (BMP )on 06-08-2024 BUN/CRE 18.2 RATIO Normal 10-20 [facility] Comment on above: Order Comment: 1Y Performed By: #### L 503.6620, L300.3900, L100.0100, L501.5425, L500.2500 ####[facility] [address] [place], [place], [id number] CA,Total 9.4 mg/dL Normal 8.5-10.1 [facility] Comment on above: Order Comment: 1Y Performed By: #### L 503.6620, L300.3900, L100.0100, L501.5425, L500.2500 ####[facility] [address] [place], [address] Chloride [Moles/Vol] 105 mmol/L Normal 98-107 [facility] Comment on above: Order Comment: 1Y Performed By: #### L 503.6620, L300.3900, L100.0100, L501.5425, L500.2500 ####[facility] [address] [place], [address] CO2 [Moles/Vol] 23.0 mmol/L Normal 21.0-32.0 [facility] Comment on above: Order Comment: 1Y Performed By: #### L 503.6620, L300.3900, L100.0100, L501.5425, L500.2500 ####[facility] [address] [place], [address] Creatinine [Mass/Vol] 1.21 mg/dL Normal 0.70-1.30 [facility] Comment on above: Order Comment: 1Y Result Comment: The validity of the calculated GFR GFRAA in patients over70 years has not been determined. Clinical correlation isessential. Performed By: #### L 503.6620, L300.3900, L100.0100, L501.5425, L500.2500 ####[facility] [address] [place], [address] ECRCL 45.52 ml/min Normal [facility] Comment on above: Order Comment: 1Y Performed By: #### L 503.6620, L300.3900, L100.0100, L501.5425, L500.2500 ####[facility] [address] [place], [address] EST GFR - AA 74 mL/min Normal >60 [facility] Comment on above: Order Comment: 1Y Result Comment: Afri can Swiss GFR Calc Performed By: #### L 503.6620, L300.3900, L100.0100, L501.5425, L500.2500 ####[facility] [address] [place], [address] GAP 8 Normal 5-15 [facility] Comment on above: Order Comment: 1Y Performed By: #### L 503.6620, L300.3900, L100.0100, L501.5425, L500.2500 ####[facility] [address] [place], [address] GFR/1.73 sq M.predicted among non-blacks MDRD (S/P/Bld) [Vol rate/Area] 61 mL/min/{1.73_m2} Normal >60 [facility] Comment on above: Order Comment: 1Y Result Comment: Non- GFR Calc Performed By: #### L 503.6620, L300.3900, L100.0100, L501.5425, L500.2500 ####[facility] [facility] [address] [place], [address] Glucose [Mass/Vol] 127 mg/dL High 74-106 [facility] Comment on above: Order Comment: 1Y Result Comment: Fast ing Glucose result greater than or equal to 126 mg/dLsuggests DIABETES MELLITUS per A.D.A. criteria. Performed By: #### L 503.6620, L300.3900, L100.0100, L501.5425, L500.2500 ####[facility] [address] [place], [address] Potassium [Moles/Vol] 3.8 mmol/L Normal 3.5-5.1 [facility] Comment on above: Order Comment: 1Y Performed By: #### L 503.6620, L300.3900, L100.0100, L501.5425, L500.2500 ####[facility] [address] [place], [address] Sodium [Moles/Vol] 136 mmol/L Normal 136-145 [facility] Comment on above: Order Comment: 1Y Performed By: #### L 503.6620, L300.3900, L100.0100, L501.5425, L500.2500 ####[facility] [address] [place], [address] Urea nitrogen [Mass/Vol] 22 mg/dL High 7-18 [facility] Comment on above: Order Comment: 1Y Performed By: #### L 503.6620, L300.3900, L100.0100, L501.5425, L500.2500 ####[facility] [address] [place], [address] Biopsy/Inj or Needle Placeme nton 06-08-2023 Biopsy/Inj or Needle Placement Normal [facility] CBC W/Diff, Automatedon 11-0 -2023 Absolute Lymph 0.97 X10 3/uL Normal 0.83-4.51 [facility] Comment on above: Performed By: #### L 100.0100 ####[facility] [address] [place], [address] Absolute Neut 5.5 X10 3/uL Normal 2.0-7.7 [facility] Comment on above: Performed By: #### L 100.0100 ####[facility] [address] [place], [address] Basophils/100 WBC (Bld) 0.1 % Normal 0-1 [facility] Comment on above: Performed By: #### L 100.0100 ####[facility] [address] [place], [address] Eosinophils/100 WBC (Bld) 1.3 % Normal 0-5 [facility] Comment on above: Performed By: #### L 100.0100 ####[facility] [address] [place], [address] Erythrocyte distribution width (RBC) [Ratio] 18.9 % High 11.6-14.6 [facility] Comment on above: Performed By: #### L 100.0100 ####[facility] [address] [place], [address] Hematocrit (Bld) [Volume fraction] 27.6 % Low 40-54 [facility] Comment on above: Performed By: #### L 100.0100 ####[facility] [address] [place], [address] Hemoglobin (Bld) [Mass/Vol] 8.7 g/dL Low 13.0-16.5 [facility] Comment on above: Performed By: #### L 100.0100 ####[facility] [address] [place], [address] IG% 0.400 Normal 0.0-0.9 [facility] Comment on above: Result Comment: IG% - Immature Granulocytes (promyelocytes, myelocytes andmetamyelocytes) > 1% indicates that a LEFT SHIFT is Present. Performed By: #### L 100.0100 ####[facility] [address] [place], [address] Lymphocytes/100 WBC (Bld) 13.5 % Low 19-41 [facility] Comment on above: Performed By: #### L 100.0100 ####[facility] [address] [place], [address] MCH (RBC) [Entitic mass] 27.2 pg Normal 27.0-32.0 [facility] Comment on above: Performed By: #### L 100.0100 ####[facility] [address] [place], [address] MCHC (RBC) [Mass/Vol] 31.5 g/dL Low 32-36 [facility] Comment on above: Performed By: #### L 100.0100 ####[facility] [address] [place], [address] MCV (RBC) [Entitic vol] 86.3 fL Normal 80-94 [facility] Comment on above: Performed By: #### L 100.0100 ####[facility] [address] [place], [address] Monocytes/100 WBC (Bld) 8.1 % Normal 0-10 [facility] Comment on above: Performed By: #### L 100.0100 ####[facility] [address] [place], [address] Neutrophils/100 WBC (Bld) 76.6 % High 47-70 [facility] Comment on above: Performed By: #### L 100.0100 ####[facility] [address] [place], [address] Nucleated RBC (Bld) [#/Vol] 0 10*3/uL Normal 0-5 [facility] Comment on above: Performed By: #### L 100.0100 ####[facility] [address] [place], [address] Platelet mean volume (Bld) [Entitic vol] 9.1 fL Normal 6.2-12.0 [facility] Comment on above: Performed By: #### L 100.0100 ####[facility] [address] [place], [address] Platelets (Bld) [#/Vol] 265 10*3/uL Normal 150-450 [facility] Comment on above: Performed By: #### L 100.0100 ####[facility] [address] [place], [address] RBC (Bld) [#/Vol] 3.20 10*6/uL Low 4.6-6.2 [facility] Comment on above: Performed By: #### L 100.0100 ####[facility] [address] [place], [address] RDW SD 58.9 fl High 35.1-43.9 [facility] Comment on above: Performed By: #### L 100.0100 ####[facility] [address] [place], [address] WBC (Bld) [#/Vol] 7.2 10*3/uL Normal 4.4-11.0 [facility] Comment on above: Performed By: #### L 100.0100 ####[facility] [address] [place], [address] Absolute Lymph 1.94 X10 3/uL Normal 0.83-4.51 [facility] Comment on above: Performed By: #### L 503.6620, L300.3900, L100.0100, L501.5425, L500.2500 ####[facility] [address] [place], [address] Absolute Neut 10.2 X10 3/uL High 2.0-7.7 [facility] Comment on above: Performed By: #### L 503.6620, L300.3900, L100.0100, L501.5425, L500.2500 ####[facility] [address] [place], [address] Basophils/100 WBC (Bld) 0.2 % Normal 0-1 [facility] Comment on above: Performed By: #### L 503.6620, L300.3900, L100.0100, L501.5425, L500.2500 ####[facility] [address] [place], [address] Eosinophils/100 WBC (Bld) 1.6 % Normal 0-5 [facility] Comment on above: Performed By: #### L 503.6620, L300.3900, L100.0100, L501.5425, L500.2500 ####[facility] [address] [place], [address] Erythrocyte distribution width (RBC) [Ratio] 18.9 % High 11.6-14.6 [facility] Comment on above: Performed By: #### L 503.6620, L300.3900, L100.0100, L501.5425, L500.2500 ####[facility] [address] [place], [address] Hematocrit (Bld) [Volume fraction] 35.8 % Low 40-54 [facility] Comment on above: Performed By: #### L 503.6620, L300.3900, L100.0100, L501.5425, L500.2500 ####[facility] [address] [place], [address] Hemoglobin (Bld) [Mass/Vol] 11.1 g/dL Low 13.0-16.5 [facility] Comment on above: Performed By: #### L 503.6620, L300.3900, L100.0100, L501.5425, L500.2500 ####[facility] [address] [place], [address] IG% 0.600 Normal 0.0-0.9 [facility] Comment on above: Result Comment: IG% - Immature Granulocytes (promyelocytes, myelocytes andmetamyelocytes) > 1% indicates that a LEFT SHIFT is Present. Performed By: #### L 503.6620, L300.3900, L100.0100, L501.5425, L500.2500 ####[facility] [address] [place], [address] Lymphocytes/100 WBC (Bld) 14.5 % Low 19-41 [facility] Comment on above: Performed By: #### L 503.6620, L300.3900, L100.0100, L501.5425, L500.2500 ####[facility] [address] [place], [address] MCH (RBC) [Entitic mass] 26.5 pg Low 27.0-32.0 [facility] Comment on above: Performed By: #### L 503.6620, L300.3900, L100.0100, L501.5425, L500.2500 ####[facility] [address] [place], [address] MCHC (RBC) [Mass/Vol] 31.0 g/dL Low 32-36 [facility] Comment on above: Performed By: #### L 503.6620, L300.3900, L100.0100, L501.5425, L500.2500 ####[facility] [address] [place], [address] MCV (RBC) [Entitic vol] 85.4 fL Normal 80-94 [facility] Comment on above: Performed By: #### L 503.6620, L300.3900, L100.0100, L501.5425, L500.2500 ####[facility] [address] [place], [address] Monocytes/100 WBC (Bld) 6.7 % Normal 0-10 [facility] Comment on above: Performed By: #### L 503.6620, L300.3900, L100.0100, L501.5425, L500.2500 ####[facility] [address] [place], [address] Neutrophils/100 WBC (Bld) 76.4 % High 47-70 [facility] Comment on above: Performed By: #### L 503.6620, L300.3900, L100.0100, L501.5425, L500.2500 ####[facility] [address] [place], [address] Nucleated RBC (Bld) [#/Vol] 0 10*3/uL Normal 0-5 [facility] Comment on above: Performed By: #### L 503.6620, L300.3900, L100.0100, L501.5425, L500.2500 ####[facility] [address] [place], [address] Platelet mean volume (Bld) [Entitic vol] 9.8 fL Normal 6.2-12.0 [facility] Comment on above: Performed By: #### L 503.6620, L300.3900, L100.0100, L501.5425, L500.2500 ####[facility] [address] [place], [address] Platelets (Bld) [#/Vol] 372 10*3/uL Normal 150-450 [facility] Comment on above: Performed By: #### L 503.6620, L300.3900, L100.0100, L501.5425, L500.2500 ####[facility] [address] [place], [address] RBC (Bld) [#/Vol] 4.19 10*6/uL Low 4.6-6.2 [facility] Comment on above: Performed By: #### L 503.6620, L300.3900, L100.0100, L501.5425, L500.2500 ####[facility] [address] [place], [address] RDW SD 57.8 fl High 35.1-43.9 [facility] Comment on above: Performed By: #### L 503.6620, L300.3900, L100.0100, L501.5425, L500.2500 ####[facility] [address] [place], [address] WBC (Bld) [#/Vol] 13.4 10*3/uL High 4.4-11.0 [facility] Comment on above: Performed By: #### L 503.6620, L300.3900, L100.0100, L501.5425, L500.2500 ####[facility] [address] [place], [address] Absolute Lymph 1.50 X10 3/uL Normal 0.83-4.51 [facility] Comment on above: Performed By: #### L 300.4310, L100.0100, L300.3900 ####[facility] [address] [place], [address] Absolute Neut 4.2 X10 3/uL Normal 2.0-7.7 [facility] Comment on above: Performed By: #### L 300.4310, L100.0100, L300.3900 ####[facility] [address] [place], [address] Basophils/100 WBC (Bld) 0.4 % Normal 0-1 [facility] Comment on above: Performed By: #### L 300.4310, L100.0100, L300.3900 ####[facility] [address] [place], [address] Eosinophils/100 WBC (Bld) 4.9 % Normal 0-5 [facility] Comment on above: Performed By: #### L 300.4310, L100.0100, L300.3900 ####[facility] [address] [place], [address] Erythrocyte distribution width (RBC) [Ratio] 18.9 % High 11.6-14.6 [facility] Comment on above: Performed By: #### L 300.4310, L100.0100, L300.3900 ####[facility] [address] [place], [address] Hematocrit (Bld) [Volume fraction] 36.2 % Low 40-54 [facility] Comment on above: Performed By: #### L 300.4310, L100.0100, L300.3900 ####[facility] [address] [place], [address] Hemoglobin (Bld) [Mass/Vol] 11.4 g/dL Low 13.0-16.5 [facility] Comment on above: Performed By: #### L 300.4310, L100.0100, L300.3900 ####[facility] [address] [place], [address] IG% 0.400 Normal 0.0-0.9 [facility] Comment on above: Result Comment: IG% - Immature Granulocytes (promyelocytes, myelocytes andmetamyelocytes) > 1% indicates that a LEFT SHIFT is Present. Performed By: #### L 300.4310, L100.0100, L300.3900 ####[facility] [address] [place], [address] Lymphocytes/100 WBC (Bld) 21.6 % Normal 19-41 [facility] Comment on above: Performed By: #### L 300.4310, L100.0100, L300.3900 ####[facility] [address] [place], [address] MCH (RBC) [Entitic mass] 26.8 pg Low 27.0-32.0 [facility] Comment on above: Performed By: #### L 300.4310, L100.0100, L300.3900 ####[facility] [address] [place], [address] MCHC (RBC) [Mass/Vol] 31.5 g/dL Low 32-36 [facility] Comment on above: Performed By: #### L 300.4310, L100.0100, L300.3900 ####[facility] [address] [place], [address] MCV (RBC) [Entitic vol] 85.2 fL Normal 80-94 [facility] Comment on above: Performed By: #### L 300.4310, L100.0100, L300.3900 ####[facility] [address] [place], [address] Monocytes/100 WBC (Bld) 11.8 % High 0-10 [facility] Comment on above: Performed By: #### L 300.4310, L100.0100, L300.3900 ####[facility] [address] [place], [address] Neutrophils/100 WBC (Bld) 60.9 % Normal 47-70 [facility] Comment on above: Performed By: #### L 300.4310, L100.0100, L300.3900 ####[facility] [address] [place], [address] Nucleated RBC (Bld) [#/Vol] 0 10*3/uL Normal 0-5 [facility] Comment on above: Performed By: #### L 300.4310, L100.0100, L300.3900 ####[facility] [address] [place], [address] Platelet mean volume (Bld) [Entitic vol] 9.5 fL Normal 6.2-12.0 [facility] Comment on above: Performed By: #### L 300.4310, L100.0100, L300.3900 ####[facility] [address] [place], [address] Platelets (Bld) [#/Vol] 344 10*3/uL Normal 150-450 [facility] Comment on above: Performed By: #### L 300.4310, L100.0100, L300.3900 ####[facility] [address] [place], [address] RBC (Bld) [#/Vol] 4.25 10*6/uL Low 4.6-6.2 [facility] Comment on above: Performed By: #### L 300.4310, L100.0100, L300.3900 ####[facility] [address] [place], [address] RDW SD 57.6 fl High 35.1-43.9 [facility] Comment on above: Performed By: #### L 300.4310, L100.0100, L300.3900 ####[facility] [address] [place], [address] WBC (Bld) [#/Vol] 6.9 10*3/uL Normal 4.4-11.0 [facility] Comment on above: Performed By: #### L 300.4310, L100.0100, L300.3900 ####[facility] [address] [place], [address] CBC-Complete Blood Cnt No Di ffon 06-08-2024 Erythrocyte distribution width (RBC) [Ratio] 18.8 % High 11.6-14.6 [facility] Comment on above: Performed By: #### L 100.0500 ####[facility] [address] [place], [address] Hematocrit (Bld) [Volume fraction] 30.7 % Low 40-54 [facility] Comment on above: Performed By: #### L 100.0500 ####[facility] [address] [place], [address] Hemoglobin (Bld) [Mass/Vol] 9.8 g/dL Low 13.0-16.5 [facility] Comment on above: Performed By: #### L 100.0500 ####[facility] [address] [place], [address] MCH (RBC) [Entitic mass] 27.1 pg Normal 27.0-32.0 [facility] Comment on above: Performed By: #### L 100.0500 ####[facility] [address] [place], [address] MCHC (RBC) [Mass/Vol] 31.9 g/dL Low 32-36 [facility] Comment on above: Performed By: #### L 100.0500 ####[facility] [address] [place], [address] MCV (RBC) [Entitic vol] 84.8 fL Normal 80-94 [facility] Comment on above: Performed By: #### L 100.0500 ####[facility] [address] [place], [address] Platelet mean volume (Bld) [Entitic vol] 9.1 fL Normal 6.2-12.0 [facility] Comment on above: Performed By: #### L 100.0500 ####[facility] [address] [place], [address] Platelets (Bld) [#/Vol] 284 10*3/uL Normal 150-450 [facility] Comment on above: Performed By: #### L 100.0500 ####[facility] [address] [place], [address] RBC (Bld) [#/Vol] 3.62 10*6/uL Low 4.6-6.2 [facility] Comment on above: Performed By: #### L 100.0500 ####[facility] [address] [place], [address] RDW SD 57.6 fl High 35.1-43.9 [facility] Comment on above: Performed By: #### L 100.0500 ####[facility] [address] [place], [address] WBC (Bld) [#/Vol] 9.9 10*3/uL Normal 4.4-11.0 [facility] Comment on above: Performed By: #### L 100.0500 ####[facility] [address] [place], [address] CTA Chst, Abd, Pel W and/or WOon 06-08-2024 CTA Chst, Abd, Pel W and/or WO Normal [facility] Chest 1 View (Portable)on Chest 1 View (Portable) Normal [facility] Emergency Department Summary on 06-08-2024 Emergency Department Summary Normal [facility] H AND P Exam - Hospitaliston 06-08-2024 H&P Exam - Hospitalist Normal [facility] L501.4020on 06-08-2024 TROPONIN-I HS 96 pg/mL High 3.0-78.0 [facility] Comment on above: Result Comment: Plea se Note: New Test Units and Gender Specific Reference Ranges. For more information see Policy Stat Procedure [facility] High Sensitivity Troponin (TNIH) and attachments. Performed By: #### L 501.4020 ####[facility] [address] [place], [address] L501.5425on 06-08-2024 TROPONIN-I HS 97 pg/mL High 3.0-78.0 [facility] Comment on above: Order Comment: 1Y Result Comment: Plea se Note: New Test Units and Gender Specific Reference Ranges. For more information see Policy Stat Procedure [facility] High Sensitivity Troponin (TNIH) and attachments. Performed By: #### L 503.6620, L300.3900, L100.0100, L501.5425, L500.2500 ####[facility] [address] [place], [address] Lipaseon 06-08-2024 Lipase [Catalytic activity/Vol] 26 U/L Normal 13-75 [facility] Comment on above: Result Comment: Plea se note:LIPASE revised reference range effective 22.New Lipase methodology. Expected to produce lower valuesthan the previous assay method.NEW Reference Range: 13 - 75 U/L Performed By: #### L 500.3400, L501.2450 ####[facility] [address] [place], [address] Liver Profileon 06-08-2024 Albumin [Mass/Vol] 3.6 g/dL Normal 3.2-5.0 [facility] Comment on above: Performed By: #### L 500.3400, L501.2450 ####[facility] [address] [place], [address] ALK P 103 U/L Normal 45-117 [facility] Comment on above: Performed By: #### L 500.3400, L501.2450 ####[facility] [address] [place], [address] ALT [Catalytic activity/Vol] 20 U/L Normal 16-61 [facility] Comment on above: Performed By: #### L 500.3400, L501.2450 ####[facility] [address] [place], [address] AST [Catalytic activity/Vol] 23 U/L Normal 15-37 [facility] Comment on above: Performed By: #### L 500.3400, L501.2450 ####[facility] [address] [place], [address] Bilirubin [Mass/Vol] 0.60 mg/dL Normal 0.20-1.00 [facility] Comment on above: Result Comment: For patients on eltrombopag therapy, use of Dimension [facility] TBIL is not recommended. Performed By: #### L 500.3400, L501.2450 ####[facility] [address] [place], [address] Bilirubin.direct [Mass/Vol] 0.18 mg/dL Normal 0.00-0.30 [facility] Comment on above: Performed By: #### L 500.3400, L501.2450 ####[facility] [address] [place], [address] Globulin (S) [Mass/Vol] 3.5 g/dL Normal 2.2-4.2 [facility] Comment on above: Performed By: #### L 500.3400, L501.2450 ####[facility] [address] [place], [address] T PROT 7.1 g/dL Normal 6.4-8.2 [facility] Comment on above: Performed By: #### L 500.3400, L501.2450 ####[facility] [address] [place], [address] Partial Thromboplast Timeon 06-08-2024 aPTT Coag (Bld) [Time] 32.9 s Normal 24.1-36.2 [facility] Comment on above: Performed By: #### L 300.4310, L100.0100, L300.3900 ####[facility] [address] [place], [address] Prothrombin Time w/INRon INR Coag (PPP) [Relative time] 1.1 {INR} Normal [facility] Comment on above: Performed By: #### L 503.6620, L300.3900, L100.0100, L501.5425, L500.2500 ####[facility] [address] [place], [address] PT Coag (PPP) [Time] 14.3 s Normal 11.7-14.9 [facility] Comment on above: Performed By: #### L 503.6620, L300.3900, L100.0100, L501.5425, L500.2500 ####[facility] [address] [place], [address] INR Coag (PPP) [Relative time] 1.1 {INR} Normal [facility] Comment on above: Performed By: #### L 300.4310, L100.0100, L300.3900 ####[facility] [address] [place], [address] PT Coag (PPP) [Time] 13.9 s Normal 11.7-14.9 [facility] Comment on above: Performed By: #### L 300.4310, L100.0100, L300.3900 ####[facility] [address] [place], [address] Trichrome (control)on 2023 Trichrome (control) Normal [facility] Comment on above: Performed By: #### P TRI ####[facility] [address] [place], [address] 12 Lead EKGon 06-07-2024 12 Lead EKG Normal [facility] Basic Metabolic Profile (BMP )on 06-07-2024 BUN/CRE 18.3 RATIO Normal 10-20 [facility] Comment on above: Performed By: #### L 500.2500, L100.0100 ####[facility] [address] [place], [address] CA,Total 9.7 mg/dL Normal 8.5-10.1 [facility] Comment on above: Performed By: #### L 500.2500, L100.0100 ####[facility] [address] [place], [address] Chloride [Moles/Vol] 103 mmol/L Normal 98-107 [facility] Comment on above: Performed By: #### L 500.2500, L100.0100 ####[facility] [address] [place], [address] CO2 [Moles/Vol] 26.0 mmol/L Normal 21.0-32.0 [facility] Comment on above: Performed By: #### L 500.2500, L100.0100 ####[facility] [address] [place], [address] Creatinine [Mass/Vol] 1.04 mg/dL Normal 0.70-1.30 [facility] Comment on above: Result Comment: The validity of the calculated GFR GFRAA in patients over70 years has not been determined. Clinical correlation isessential. Performed By: #### L 500.2500, L100.0100 ####[facility] [address] [place], [address] ECRCL 52.96 ml/min Normal [facility] Comment on above: Performed By: #### L 500.2500, L100.0100 ####[facility] [address] [place], [address] EST GFR - AA 88 mL/min Normal >60 [facility] Comment on above: Result Comment: Afri can Swiss GFR Calc Performed By: #### L 500.2500, L100.0100 ####[facility] [address] [place], [address] GAP 7 Normal 5-15 [facility] Comment on above: Performed By: #### L 500.2500, L100.0100 ####[facility] [address] [place], [address] GFR/1.73 sq M.predicted among non-blacks MDRD (S/P/Bld) [Vol rate/Area] 73 mL/min/{1.73_m2} Normal >60 [facility] Comment on above: Result Comment: Non- GFR Calc Performed By: #### L 500.2500, L100.0100 ####[facility] [address] [place], [address] Glucose [Mass/Vol] 101 mg/dL Normal 74-106 [facility] Comment on above: Result Comment: Fast ing Glucose result from 100 to 125 mg/dLsuggests IMPAIRED HOMEOSTASIS per A.D.A. criteria. Performed By: #### L 500.2500, L100.0100 ####[facility] [address] [place], [address] Potassium [Moles/Vol] 4.1 mmol/L Normal 3.5-5.1 [facility] Comment on above: Performed By: #### L 500.2500, L100.0100 ####[facility] [address] [place], [address] Sodium [Moles/Vol] 136 mmol/L Normal 136-145 [facility] Comment on above: Performed By: #### L 500.2500, L100.0100 ####[facility] [address] [place], [address] Urea nitrogen [Mass/Vol] 19 mg/dL High 7-18 [facility] Comment on above: Performed By: #### L 500.2500, L100.0100 ####[facility] [address] [place], [address] CBC W/Diff, Automatedon 11-0 7-4 Absolute Lymph 1.13 X10 3/uL Normal 0.83-4.51 [facility] Comment on above: Performed By: #### L 500.2500, L100.0100 ####[facility] [address] [place], [address] Absolute Neut 3.7 X10 3/uL Normal 2.0-7.7 [facility] Comment on above: Performed By: #### L 500.2500, L100.0100 ####[facility] [address] [place], [address] Basophils/100 WBC (Bld) 0.4 % Normal 0-1 [facility] Comment on above: Performed By: #### L 500.2500, L100.0100 ####[facility] [address] [place], [address] Eosinophils/100 WBC (Bld) 4.1 % Normal 0-5 [facility] Comment on above: Performed By: #### L 500.2500, L100.0100 ####[facility] [address] [place], [address] Erythrocyte distribution width (RBC) [Ratio] 18.9 % High 11.6-14.6 [facility] Comment on above: Performed By: #### L 500.2500, L100.0100 ####[facility] [address] [place], [address] Hematocrit (Bld) [Volume fraction] 35.0 % Low 40-54 [facility] Comment on above: Performed By: #### L 500.2500, L100.0100 ####[facility] [address] [place], [address] Hemoglobin (Bld) [Mass/Vol] 11.1 g/dL Low 13.0-16.5 [facility] Comment on above: Performed By: #### L 500.2500, L100.0100 ####[facility] [address] [place], [address] IG% 0.400 Normal 0.0-0.9 [facility] Comment on above: Result Comment: IG% - Immature Granulocytes (promyelocytes, myelocytes andmetamyelocytes) > 1% indicates that a LEFT SHIFT is Present. Performed By: #### L 500.2500, L100.0100 ####[facility] [address] [place], [address] Lymphocytes/100 WBC (Bld) 20.0 % Normal 19-41 [facility] Comment on above: Performed By: #### L 500.2500, L100.0100 ####[facility] [address] [place], [address] MCH (RBC) [Entitic mass] 27.1 pg Normal 27.0-32.0 [facility] Comment on above: Performed By: #### L 500.2500, L100.0100 ####[facility] [address] [place], [address] MCHC (RBC) [Mass/Vol] 31.7 g/dL Low 32-36 [facility] Comment on above: Performed By: #### L 500.2500, L100.0100 ####[facility] [address] [place], [address] MCV (RBC) [Entitic vol] 85.4 fL Normal 80-94 [facility] Comment on above: Performed By: #### L 500.2500, L100.0100 ####[facility] [address] [place], [address] Monocytes/100 WBC (Bld) 10.4 % High 0-10 [facility] Comment on above: Performed By: #### L 500.2500, L100.0100 ####[facility] [address] [place], [address] Neutrophils/100 WBC (Bld) 64.7 % Normal 47-70 [facility] Comment on above: Performed By: #### L 500.2500, L100.0100 ####[facility] [address] [place], [address] Nucleated RBC (Bld) [#/Vol] 0 10*3/uL Normal 0-5 [facility] Comment on above: Performed By: #### L 500.2500, L100.0100 ####[facility] [address] [place], [address] Platelet mean volume (Bld) [Entitic vol] 9.5 fL Normal 6.2-12.0 [facility] Comment on above: Performed By: #### L 500.2500, L100.0100 ####[facility] [address] [place], [address] Platelets (Bld) [#/Vol] 301 10*3/uL Normal 150-450 [facility] Comment on above: Performed By: #### L 500.2500, L100.0100 ####[facility] [address] [place], [address] RBC (Bld) [#/Vol] 4.10 10*6/uL Low 4.6-6.2 [facility] Comment on above: Performed By: #### L 500.2500, L100.0100 ####[facility] [address] [place], [address] RDW SD 57.8 fl High 35.1-43.9 [facility] Comment on above: Performed By: #### L 500.2500, L100.0100 ####[facility] [address] [place], [address] WBC (Bld) [#/Vol] 5.7 10*3/uL Normal 4.4-11.0 [facility] Comment on above: Performed By: #### L 500.2500, L100.0100 ####[facility] [address] [place], [address] Emergency Department Summary on 06-07-2024 Emergency Department Summary Normal [facility] Surgery Visit Reporton 06-07 Surgery Visit Report Normal [facility] Oncology Visit Reporton 05-03 Oncology Visit Report Normal [facility] PET/CT Tumor Base -Thigh Ini ton 05-29-2024 PET/CT Tumor Base -Thigh Init Normal [facility] Carcinoembryonic Antigenon 1 CEA 2.2 ng/mL Normal 0.0-4.7 [facility] Comment on above: Order Comment: Speci men Comment: A duplicate report has been generateddue to demographicSpecimen Comment: updates. Result Comment: Nons mokers <3.9 Smokers <5.6[employer] Electrochemiluminescence Immunoassay(ECLIA)Values obtained with different assay methods or kitscannot be used interchangeably. Results cannot beinterpreted as absolute evidence of the presence orabsence of malignant disease.Performed at: [facility] [address] [id number] Director: Jian Paredes PhD, Phone: [phone] Performed By: #### L 3100.2300, L503.6550 ####[facility] [address] [place], [address] C-reactive protein measureme nt by high sensitivity methodOrdered By: Papi Hernandez on 05-16-2024 C-Reactive Protein Extended Range 5.71 mg/L High 0.0-3.0 [facility] Comment on above: C-Reactive Protein ( CRP) provides useful information for thediagnosis, therapy and monitoring of inflammatory processesand associated diseases. For the evaluation of Relative Riskfor Cardiovascular Disease, a High Sensitivity CRP (HSCRP)should be ordered. C-reactive protein measurement by high sensitivity method 5.71 mg/L High 0.0-3.0 [facility] Comment on above: C-Reactive Protein ( CRP) provides useful information for thediagnosis, therapy and monitoring of inflammatory processesand associated diseases. For the evaluation of Relative Riskfor Cardiovascular Disease, a High Sensitivity CRP (HSCRP)should be ordered. CBC W/Diff, Automatedon 05-01 Absolute Lymph 1.28 X10 3/uL Normal 0.83-4.51 [facility] Comment on above: Performed By: #### L 101.9900, L100.9950, L503.6030, L501.6710, L100.0100, L500.4050, L900.0098 ####[facility] [address] [place], [address] Absolute Neut 3.8 X10 3/uL Normal 2.0-7.7 [facility] Comment on above: Performed By: #### L 101.9900, L100.9950, L503.6030, L501.6710, L100.0100, L500.4050, L900.0098 ####[facility] [address] [place], [address] Basophils/100 WBC (Bld) 0.3 % Normal 0-1 [facility] Comment on above: Performed By: #### L 101.9900, L100.9950, L503.6030, L501.6710, L100.0100, L500.4050, L900.0098 ####[facility] [address] [place], [address] Eosinophils/100 WBC (Bld) 2.6 % Normal 0-5 [facility] Comment on above: Performed By: #### L 101.9900, L100.9950, L503.6030, L501.6710, L100.0100, L500.4050, L900.0098 ####[facility] [address] [place], [address] Erythrocyte distribution width (RBC) [Ratio] 14.2 % Normal 11.6-14.6 [facility] Comment on above: Performed By: #### L 101.9900, L100.9950, L503.6030, L501.6710, L100.0100, L500.4050, L900.0098 ####[facility] [address] [place], [address] Hematocrit (Bld) [Volume fraction] 30.5 % Low 40-54 [facility] Comment on above: Performed By: #### L 101.9900, L100.9950, L503.6030, L501.6710, L100.0100, L500.4050, L900.0098 ####[facility] [address] [place], [address] Hemoglobin (Bld) [Mass/Vol] 9.6 g/dL Low 13.0-16.5 [facility] Comment on above: Performed By: #### L 101.9900, L100.9950, L503.6030, L501.6710, L100.0100, L500.4050, L900.0098 ####[facility] [address] [place], [address] IG% 0.300 Normal 0.0-0.9 [facility] Comment on above: Result Comment: IG% - Immature Granulocytes (promyelocytes, myelocytes andmetamyelocytes) > 1% indicates that a LEFT SHIFT is Present. Performed By: #### L 101.9900, L100.9950, L503.6030, L501.6710, L100.0100, L500.4050, L900.0098 ####[facility] [address] [place], [address] Lymphocytes/100 WBC (Bld) 21.9 % Normal 19-41 [facility] Comment on above: Performed By: #### L 101.9900, L100.9950, L503.6030, L501.6710, L100.0100, L500.4050, L900.0098 ####[facility] [address] [place], [address] MCH (RBC) [Entitic mass] 25.9 pg Low 27.0-32.0 [facility] Comment on above: Performed By: #### L 101.9900, L100.9950, L503.6030, L501.6710, L100.0100, L500.4050, L900.0098 ####[facility] [address] [place], [address] MCHC (RBC) [Mass/Vol] 31.5 g/dL Low 32-36 [facility] Comment on above: Performed By: #### L 101.9900, L100.9950, L503.6030, L501.6710, L100.0100, L500.4050, L900.0098 ####[facility] [address] [place], [address] MCV (RBC) [Entitic vol] 82.2 fL Normal 80-94 [facility] Comment on above: Performed By: #### L 101.9900, L100.9950, L503.6030, L501.6710, L100.0100, L500.4050, L900.0098 ####[facility] [address] [place], [address] Monocytes/100 WBC (Bld) 9.6 % Normal 0-10 [facility] Comment on above: Performed By: #### L 101.9900, L100.9950, L503.6030, L501.6710, L100.0100, L500.4050, L900.0098 ####[facility] [address] [place], [address] Neutrophils/100 WBC (Bld) 65.3 % Normal 47-70 [facility] Comment on above: Performed By: #### L 101.9900, L100.9950, L503.6030, L501.6710, L100.0100, L500.4050, L900.0098 ####[facility] [address] [place], [address] Nucleated RBC (Bld) [#/Vol] 0 10*3/uL Normal 0-5 [facility] Comment on above: Performed By: #### L 101.9900, L100.9950, L503.6030, L501.6710, L100.0100, L500.4050, L900.0098 ####[facility] [address] [place], [address] Platelet mean volume (Bld) [Entitic vol] 9.1 fL Normal 6.2-12.0 [facility] Comment on above: Performed By: #### L 101.9900, L100.9950, L503.6030, L501.6710, L100.0100, L500.4050, L900.0098 ####[facility] [address] [place], [address] Platelets (Bld) [#/Vol] 373 10*3/uL Normal 150-450 [facility] Comment on above: Performed By: #### L 101.9900, L100.9950, L503.6030, L501.6710, L100.0100, L500.4050, L900.0098 ####[facility] [address] [place], [address] RBC (Bld) [#/Vol] 3.71 10*6/uL Low 4.6-6.2 [facility] Comment on above: Performed By: #### L 101.9900, L100.9950, L503.6030, L501.6710, L100.0100, L500.4050, L900.0098 ####[facility] [address] [place], [address] RDW SD 42.2 fl Normal 35.1-43.9 [facility] Comment on above: Performed By: #### L 101.9900, L100.9950, L503.6030, L501.6710, L100.0100, L500.4050, L900.0098 ####[facility] [address] [place], [address] WBC (Bld) [#/Vol] 5.8 10*3/uL Normal 4.4-11.0 [facility] Comment on above: Performed By: #### L 101.9900, L100.9950, L503.6030, L501.6710, L100.0100, L500.4050, L900.0098 ####[facility] [address] [place], [address] CRPon 05-16-2024 C-REACTIVE PROT 5.71 mg/L High 0.0-3.0 [facility] Comment on above: Result Comment: C-Re active Protein (CRP) provides useful information for thediagnosis, therapy and monitoring of inflammatory processesand associated diseases. For the evaluation of Relative Riskfor Cardiovascular Disease, a High Sensitivity CRP (HSCRP)should be ordered. Performed By: #### L 101.9900, L100.9950, L503.6030, L501.6710, L100.0100, L500.4050, L900.0098 ####[facility] [address] [place], [address] Comprehensive Metabolic Prof ilon 05-16-2024 Albumin [Mass/Vol] 3.9 g/dL Normal 3.2-5.0 [facility] Comment on above: Performed By: #### L 101.9900, L100.9950, L503.6030, L501.6710, L100.0100, L500.4050, L900.0098 ####[facility] [address] [place], [place], [address] Albumin/Globulin [Mass ratio] 1.1 {ratio} Normal 0.9-2.4 [facility] Comment on above: Performed By: #### L 101.9900, L100.9950, L503.6030, L501.6710, L100.0100, L500.4050, L900.0098 ####[facility] [address] [place], [address] ALK P 101 U/L Normal 45-117 [facility] Comment on above: Performed By: #### L 101.9900, L100.9950, L503.6030, L501.6710, L100.0100, L500.4050, L900.0098 ####[facility] [address] [place], [address] ALT [Catalytic activity/Vol] 19 U/L Normal 16-61 [facility] Comment on above: Performed By: #### L 101.9900, L100.9950, L503.6030, L501.6710, L100.0100, L500.4050, L900.0098 ####[facility] [address] [place], [address] AST [Catalytic activity/Vol] 15 U/L Normal 15-37 [facility] Comment on above: Performed By: #### L 101.9900, L100.9950, L503.6030, L501.6710, L100.0100, L500.4050, L900.0098 ####[facility] [address] [place], [address] Bilirubin [Mass/Vol] 0.50 mg/dL Normal 0.20-1.00 [facility] Comment on above: Result Comment: For patients on eltrombopag therapy, use of Dimension [place] TBIL is not recommended. Performed By: #### L 101.9900, L100.9950, L503.6030, L501.6710, L100.0100, L500.4050, L900.0098 ####[facility] [address] [place], [address] BUN/CRE 16.7 RATIO Normal 10-20 [facility] Comment on above: Performed By: #### L 101.9900, L100.9950, L503.6030, L501.6710, L100.0100, L500.4050, L900.0098 ####[facility] [address] [place], [address] CA,Total 9.6 mg/dL Normal 8.5-10.1 [facility] Comment on above: Performed By: #### L 101.9900, L100.9950, L503.6030, L501.6710, L100.0100, L500.4050, L900.0098 ####[facility] [address] [place], [address] Chloride [Moles/Vol] 105 mmol/L Normal 98-107 [facility] Comment on above: Performed By: #### L 101.9900, L100.9950, L503.6030, L501.6710, L100.0100, L500.4050, L900.0098 ####[facility] [address] [place], [address] CO2 [Moles/Vol] 26.0 mmol/L Normal 21.0-32.0 [facility] Comment on above: Performed By: #### L 101.9900, L100.9950, L503.6030, L501.6710, L100.0100, L500.4050, L900.0098 ####[facility] [address] [place], [address] Creatinine [Mass/Vol] 1.14 mg/dL Normal 0.70-1.30 [facility] Comment on above: Result Comment: The validity of the calculated GFR GFRAA in patients over70 years has not been determined. Clinical correlation isessential. Performed By: #### L 101.9900, L100.9950, L503.6030, L501.6710, L100.0100, L500.4050, L900.0098 ####[facility] [address] [place], [address] EST GFR - AA 79 mL/min Normal >60 [facility] Comment on above: Result Comment: Afri can Swiss GFR Calc Performed By: #### L 101.9900, L100.9950, L503.6030, L501.6710, L100.0100, L500.4050, L900.0098 ####[facility] [address] [place], [address] GAP 4 Low 5-15 [facility] Comment on above: Performed By: #### L 101.9900, L100.9950, L503.6030, L501.6710, L100.0100, L500.4050, L900.0098 ####[facility] [address] [place], [address] GFR/1.73 sq M.predicted among non-blacks MDRD (S/P/Bld) [Vol rate/Area] 66 mL/min/{1.73_m2} Normal >60 [facility] Comment on above: Result Comment: Non- GFR Calc Performed By: #### L 101.9900, L100.9950, L503.6030, L501.6710, L100.0100, L500.4050, L900.0098 ####[facility] [address] [place], [address] Globulin (S) [Mass/Vol] 3.7 g/dL Normal 2.2-4.2 [facility] Comment on above: Performed By: #### L 101.9900, L100.9950, L503.6030, L501.6710, L100.0100, L500.4050, L900.0098 ####[facility] [address] [place], [address] Glucose [Mass/Vol] 102 mg/dL Normal 74-106 [facility] Comment on above: Result Comment: Fast ing Glucose result from 100 to 125 mg/dLsuggests IMPAIRED HOMEOSTASIS per A.D.A. criteria. Performed By: #### L 101.9900, L100.9950, L503.6030, L501.6710, L100.0100, L500.4050, L900.0098 ####[facility] [address] [place], [address] Potassium [Moles/Vol] 4.4 mmol/L Normal 3.5-5.1 [facility] Comment on above: Performed By: #### L 101.9900, L100.9950, L503.6030, L501.6710, L100.0100, L500.4050, L900.0098 ####[facility] [address] [place], [address] Sodium [Moles/Vol] 135 mmol/L Low 136-145 [facility] Comment on above: Performed By: #### L 101.9900, L100.9950, L503.6030, L501.6710, L100.0100, L500.4050, L900.0098 ####[facility] [address] [place], [address] T PROT 7.6 g/dL Normal 6.4-8.2 [facility] Comment on above: Performed By: #### L 101.9900, L100.9950, L503.6030, L501.6710, L100.0100, L500.4050, L900.0098 ####[facility] [address] [place], [address] Urea nitrogen [Mass/Vol] 19 mg/dL High 7-18 [facility] Comment on above: Performed By: #### L 101.9900, L100.9950, L503.6030, L501.6710, L100.0100, L500.4050, L900.0098 ####[facility] [address] [place], [address] Erythrocyte Sed Rateon 05-16 SED RATE 13 mm/hr Normal 0-20 [facility] Comment on above: Performed By: #### L 101.9900, L100.9950, L503.6030, L501.6710, L100.0100, L500.4050, L900.0098 ####[facility] [address] [place], [address] Erythrocyte sedimentation ra teOrdered By: Papi Hernandez on 05-16-2024 ESR (Bld) [Velocity] 13 mm/h 0-20 [facility] Ferritinon 05-16-2024 Ferritin [Mass/Vol] 31 ng/mL Normal 26-388 [facility] Comment on above: Performed By: #### L 3100.2300, L503.6550 ####[facility] [address] [place], [place], [id number] Ferritin measurementOrdered By: Papi Hernandez on 05-16-2024 Ferritin [Mass/Vol] 31 ng/mL 26-388 [facility] Hemoglobin (Reticulocytes) [ Entitic mass]Ordered By: Papi Hernandez on 05-16-2024 Reticulocyte Hemoglobin Equivalent 27.6 pg Low 30-35 [facility] Immature reticulocyte fracti onOrdered By: Papi Hernandez on 05-16-2024 Immature Reticulocyte Fraction 16.60 % High 3.00-15.90 [facility] Iron (Unsp spec) [Mass/Mass] Ordered By: Papi Hernandez on 05-16-2024 Iron [Mass/Vol] 29 ug/dL Low 65-175 [facility] Iron measurement (mass/mass) Ordered By: Papi Hernandez on 05-16-2024 Iron (Unsp spec) [Mass/Mass] 29 ug/dL Low 65-175 [facility] Iron saturation [Mass fracti on]Ordered By: Papi Hernandez on 05-16-2024 Iron Saturation 7.2 % Low 15.0-55.0 [facility] Iron+Iron Binding Capacityon 05-16-2024 Iron [Mass/Vol] 29 ug/dL Low 65-175 [facility] Comment on above: Performed By: #### L 101.9900, L100.9950, L503.6030, L501.6710, L100.0100, L500.4050, L900.0098 ####[facility] [address] [place], [place], [id number] IRON SATURATION 7.2 Low 15.0-55.0 [facility] Comment on above: Performed By: #### L 101.9900, L100.9950, L503.6030, L501.6710, L100.0100, L500.4050, L900.0098 ####[facility] [address] [place], [place], [id number] TIBC 401 ug/dL Normal 250-450 [facility] Comment on above: Performed By: #### L 101.9900, L100.9950, L503.6030, L501.6710, L100.0100, L500.4050, L900.0098 ####[facility] [address] [place], [place], [id number] NATERAon 05-16-2024 NATURA SEE SCANNED REPORT Normal [facility] Comment on above: Performed By: #### L 101.9900, L100.9950, L503.6030, L501.6710, L100.0100, L500.4050, L900.0098 ####[facility] [address] [place], [place], [id number] Oncology Visit Reporton 05-01 Oncology Visit Report Normal [facility] Retic Panelon 05-16-2024 IM RET FRACTION 16.60 High 3.00-15.90 [facility] Comment on above: Performed By: #### L 101.9900, L100.9950, L503.6030, L501.6710, L100.0100, L500.4050, L900.0098 ####[facility] [address] [place], [place], [id number] RET-HE 27.6 pg Low 30-35 [facility] Comment on above: Performed By: #### L 101.9900, L100.9950, L503.6030, L501.6710, L100.0100, L500.4050, L900.0098 ####[facility] [address] [place], [address] Retic Count 1.19 Normal 0.5-1.5 [facility] Comment on above: Performed By: #### L 101.9900, L100.9950, L503.6030, L501.6710, L100.0100, L500.4050, L900.0098 ####[facility] [address] [place], [address] Reticulocyte hemoglobin equi valent (RET-He) measurementOrdered By: Papi Hernandez on 05-16-2024 Hemoglobin (Reticulocytes) [Entitic mass] 27.6 pg Low 30-35 [facility] Reticulocytes Auto (Bld) [#/ Vol]Ordered By: Papi Hernandez on 05-16-2024 Reticulocyte Count 1.19 % 0.5-1.5 [facility] Reticulocytes/100 RBC (Bld) 1.19 % 0.5-1.5 [facility] Serum or plasma iron saturat ion measurement (mass fraction)Ordered By: Papi Hernandez on 05-16-2024 Iron saturation [Mass fraction] 7.2 % Low 15.0-55.0 [facility] TIBCOrdered By: Papi Hernandez on 05-16-2024 Total Iron Binding Capacity 401 ug/dL 250-450 [facility] Surgery Visit Reporton 05-10 Surgery Visit Report Normal [facility] Basic Metabolic Profile (BMP )on 05-07-2024 BUN/CRE 13.7 RATIO Normal 10-20 [facility] Comment on above: Performed By: #### L 100.0100, L500.2500 ####[facility] [address] [place], [address] CA,Total 9.5 mg/dL Normal 8.5-10.1 [facility] Comment on above: Performed By: #### L 100.0100, L500.2500 ####[facility] [address] [place], [address] Chloride [Moles/Vol] 103 mmol/L Normal 98-107 [facility] Comment on above: Performed By: #### L 100.0100, L500.2500 ####[facility] [address] [place], [address] CO2 [Moles/Vol] 25.0 mmol/L Normal 21.0-32.0 [facility] Comment on above: Performed By: #### L 100.0100, L500.2500 ####[facility] [address] [place], [address] Creatinine [Mass/Vol] 1.17 mg/dL Normal 0.70-1.30 [facility] Comment on above: Result Comment: The validity of the calculated GFR GFRAA in patients over70 years has not been determined. Clinical correlation isessential. Performed By: #### L 100.0100, L500.2500 ####[facility] [address] [place], [address] EST GFR - AA 77 mL/min Normal >60 [facility] Comment on above: Result Comment: Afri can Swiss GFR Calc Performed By: #### L 100.0100, L500.2500 ####[facility] [address] [place], [address] GAP 7 Normal 5-15 [facility] Comment on above: Performed By: #### L 100.0100, L500.2500 ####[facility] [address] [place], [address] GFR/1.73 sq M.predicted among non-blacks MDRD (S/P/Bld) [Vol rate/Area] 64 mL/min/{1.73_m2} Normal >60 [facility] Comment on above: Result Comment: Non- GFR Calc Performed By: #### L 100.0100, L500.2500 ####[facility] [address] [place], [address] Glucose [Mass/Vol] 112 mg/dL High 74-106 [facility] Comment on above: Result Comment: Fast ing Glucose result from 100 to 125 mg/dLsuggests IMPAIRED HOMEOSTASIS per A.D.A. criteria. Performed By: #### L 100.0100, L500.2500 ####[facility] [address] [place], [address] Potassium [Moles/Vol] 4.6 mmol/L Normal 3.5-5.1 [facility] Comment on above: Performed By: #### L 100.0100, L500.2500 ####[facility] [address] [place], [address] Sodium [Moles/Vol] 135 mmol/L Low 136-145 [facility] Comment on above: Performed By: #### L 100.0100, L500.2500 ####[facility] [address] [place], [address] Urea nitrogen [Mass/Vol] 16 mg/dL Normal 7-18 [facility] Comment on above: Performed By: #### L 100.0100, L500.2500 ####[facility] [address] [place], [address] CBC W/Diff, Automatedon 10-0 7-2023 Absolute Lymph 1.28 X10 3/uL Normal 0.83-4.51 [facility] Comment on above: Performed By: #### L 100.0100, L500.2500 ####[facility] [address] [place], [address] Absolute Neut 3.6 X10 3/uL Normal 2.0-7.7 [facility] Comment on above: Performed By: #### L 100.0100, L500.2500 ####[facility] [address] [place], [address] Basophils/100 WBC (Bld) 0.4 % Normal 0-1 [facility] Comment on above: Performed By: #### L 100.0100, L500.2500 ####[facility] [address] [place], [address] Eosinophils/100 WBC (Bld) 1.8 % Normal 0-5 [facility] Comment on above: Performed By: #### L 100.0100, L500.2500 ####[facility] [address] [place], [address] Erythrocyte distribution width (RBC) [Ratio] 14.3 % Normal 11.6-14.6 [facility] Comment on above: Performed By: #### L 100.0100, L500.2500 ####[facility] [address] [place], [address] Hematocrit (Bld) [Volume fraction] 29.4 % Low 40-54 [facility] Comment on above: Performed By: #### L 100.0100, L500.2500 ####[facility] [address] [place], [address] Hemoglobin (Bld) [Mass/Vol] 8.8 g/dL Low 13.0-16.5 [facility] Comment on above: Performed By: #### L 100.0100, L500.2500 ####[facility] [address] [place], [address] IG% 0.500 Normal 0.0-0.9 [facility] Comment on above: Result Comment: IG% - Immature Granulocytes (promyelocytes, myelocytes andmetamyelocytes) > 1% indicates that a LEFT SHIFT is Present. Performed By: #### L 100.0100, L500.2500 ####[facility] [address] [place], [address] Lymphocytes/100 WBC (Bld) 23.0 % Normal 19-41 [facility] Comment on above: Performed By: #### L 100.0100, L500.2500 ####[facility] [address] [place], [address] MCH (RBC) [Entitic mass] 25.4 pg Low 27.0-32.0 [facility] Comment on above: Performed By: #### L 100.0100, L500.2500 ####[facility] [address] [place], [address] MCHC (RBC) [Mass/Vol] 29.9 g/dL Low 32-36 [facility] Comment on above: Performed By: #### L 100.0100, L500.2500 ####[facility] [address] [place], [address] MCV (RBC) [Entitic vol] 85.0 fL Normal 80-94 [facility] Comment on above: Performed By: #### L 100.0100, L500.2500 ####[facility] [address] [place], [address] Monocytes/100 WBC (Bld) 10.4 % High 0-10 [facility] Comment on above: Performed By: #### L 100.0100, L500.2500 ####[facility] [address] [place], [address] Neutrophils/100 WBC (Bld) 63.9 % Normal 47-70 [facility] Comment on above: Performed By: #### L 100.0100, L500.2500 ####[facility] [address] [place], [address] Nucleated RBC (Bld) [#/Vol] 0 10*3/uL Normal 0-5 [facility] Comment on above: Performed By: #### L 100.0100, L500.2500 ####[facility] [address] [place], [address] Platelet mean volume (Bld) [Entitic vol] 9.8 fL Normal 6.2-12.0 [facility] Comment on above: Performed By: #### L 100.0100, L500.2500 ####[facility] [address] [place], [address] Platelets (Bld) [#/Vol] 416 10*3/uL Normal 150-450 [facility] Comment on above: Performed By: #### L 100.0100, L500.2500 ####[facility] [address] [place], [address] RBC (Bld) [#/Vol] 3.46 10*6/uL Low 4.6-6.2 [facility] Comment on above: Performed By: #### L 100.0100, L500.2500 ####[facility] [address] [place], [address] RDW SD 44.5 fl High 35.1-43.9 [facility] Comment on above: Performed By: #### L 100.0100, L500.2500 ####[facility] [address] [place], [address] WBC (Bld) [#/Vol] 5.6 10*3/uL Normal 4.4-11.0 [facility] Comment on above: Performed By: #### L 100.0100, L500.2500 ####[facility] [address] [place], [address] Basic Metabolic Profile (BMP )on 05-01-2024 BUN/CRE 16.2 RATIO Normal 10-20 [facility] Comment on above: Performed By: #### L 100.0100, L500.2500 ####[facility] [address] [place], [address] CA,Total 9.3 mg/dL Normal 8.5-10.1 [facility] Comment on above: Performed By: #### L 100.0100, L500.2500 ####[facility] [address] [place], [address] Chloride [Moles/Vol] 96 mmol/L Low 98-107 [facility] Comment on above: Performed By: #### L 100.0100, L500.2500 ####[facility] [address] [place], [address] CO2 [Moles/Vol] 24.0 mmol/L Normal 21.0-32.0 [facility] Comment on above: Performed By: #### L 100.0100, L500.2500 ####[facility] [address] [place], [address] Creatinine [Mass/Vol] 1.30 mg/dL Normal 0.70-1.30 [facility] Comment on above: Result Comment: The validity of the calculated GFR GFRAA in patients over70 years has not been determined. Clinical correlation isessential. Performed By: #### L 100.0100, L500.2500 ####[facility] [address] [place], [address] ECRCL 42.37 ml/min Normal [facility] Comment on above: Performed By: #### L 100.0100, L500.2500 ####[facility] [address] [place], [address] EST GFR - AA 68 mL/min Normal >60 [facility] Comment on above: Result Comment: Afri can Swiss GFR Calc Performed By: #### L 100.0100, L500.2500 ####[facility] [address] [place], [address] GAP 9 Normal 5-15 [facility] Comment on above: Performed By: #### L 100.0100, L500.2500 ####[facility] [address] [place], [address] GFR/1.73 sq M.predicted among non-blacks MDRD (S/P/Bld) [Vol rate/Area] 56 mL/min/{1.73_m2} Low >60 [facility] Comment on above: Result Comment: Non- GFR Calc Performed By: #### L 100.0100, L500.2500 ####[facility] [address] [place], [address] Glucose [Mass/Vol] 111 mg/dL High 74-106 [facility] Comment on above: Result Comment: Fast ing Glucose result from 100 to 125 mg/dLsuggests IMPAIRED HOMEOSTASIS per A.D.A. criteria. Performed By: #### L 100.0100, L500.2500 ####[facility] [address] [place], [address] Potassium [Moles/Vol] 4.2 mmol/L Normal 3.5-5.1 [facility] Comment on above: Performed By: #### L 100.0100, L500.2500 ####[facility] [address] [place], [address] Sodium [Moles/Vol] 128 mmol/L Low 136-145 [facility] Comment on above: Performed By: #### L 100.0100, L500.2500 ####[facility] [address] [place], [address] Urea nitrogen [Mass/Vol] 21 mg/dL High 7-18 [facility] Comment on above: Performed By: #### L 100.0100, L500.2500 ####[facility] [address] [place], [address] CBC W/Diff, Automatedon 10-0 1-4 Absolute Lymph 1.58 X10 3/uL Normal 0.83-4.51 [facility] Comment on above: Performed By: #### L 100.0100, L500.2500 ####[facility] [address] [place], [address] Absolute Neut 6.7 X10 3/uL Normal 2.0-7.7 [facility] Comment on above: Performed By: #### L 100.0100, L500.2500 ####[facility] [address] [place], [address] Basophils/100 WBC (Bld) 0.3 % Normal 0-1 [facility] Comment on above: Performed By: #### L 100.0100, L500.2500 ####[facility] [address] [place], [address] Eosinophils/100 WBC (Bld) 3.0 % Normal 0-5 [facility] Comment on above: Performed By: #### L 100.0100, L500.2500 ####[facility] [address] [place], [address] Erythrocyte distribution width (RBC) [Ratio] 14.2 % Normal 11.6-14.6 [facility] Comment on above: Performed By: #### L 100.0100, L500.2500 ####[facility] [address] [place], [address] Hematocrit (Bld) [Volume fraction] 30.5 % Low 40-54 [facility] Comment on above: Performed By: #### L 100.0100, L500.2500 ####[facility] [address] [place], [address] Hemoglobin (Bld) [Mass/Vol] 9.5 g/dL Low 13.0-16.5 [facility] Comment on above: Performed By: #### L 100.0100, L500.2500 ####[facility] [address] [place], [address] IG% 0.800 Normal 0.0-0.9 [facility] Comment on above: Result Comment: IG% - Immature Granulocytes (promyelocytes, myelocytes andmetamyelocytes) > 1% indicates that a LEFT SHIFT is Present. Performed By: #### L 100.0100, L500.2500 ####[facility] [address] [place], [address] Lymphocytes/100 WBC (Bld) 16.4 % Low 19-41 [facility] Comment on above: Performed By: #### L 100.0100, L500.2500 ####[facility] [address] [place], [address] MCH (RBC) [Entitic mass] 25.7 pg Low 27.0-32.0 [facility] Comment on above: Performed By: #### L 100.0100, L500.2500 ####[facility] [address] [place], [address] MCHC (RBC) [Mass/Vol] 31.1 g/dL Low 32-36 [facility] Comment on above: Performed By: #### L 100.0100, L500.2500 ####[facility] [address] [place], [address] MCV (RBC) [Entitic vol] 82.4 fL Normal 80-94 [facility] Comment on above: Performed By: #### L 100.0100, L500.2500 ####[facility] [address] [place], [address] Monocytes/100 WBC (Bld) 9.7 % Normal 0-10 [facility] Comment on above: Performed By: #### L 100.0100, L500.2500 ####[facility] [address] [place], [address] Neutrophils/100 WBC (Bld) 69.8 % Normal 47-70 [facility] Comment on above: Performed By: #### L 100.0100, L500.2500 ####[facility] [address] [place], [address] Nucleated RBC (Bld) [#/Vol] 0 10*3/uL Normal 0-5 [facility] Comment on above: Performed By: #### L 100.0100, L500.2500 ####[facility] [address] [place], [address] Platelet mean volume (Bld) [Entitic vol] 9.7 fL Normal 6.2-12.0 [facility] Comment on above: Performed By: #### L 100.0100, L500.2500 ####[facility] [address] [place], [address] Platelets (Bld) [#/Vol] 440 10*3/uL Normal 150-450 [facility] Comment on above: Performed By: #### L 100.0100, L500.2500 ####[facility] [address] [place], [address] RBC (Bld) [#/Vol] 3.70 10*6/uL Low 4.6-6.2 [facility] Comment on above: Performed By: #### L 100.0100, L500.2500 ####[facility] [address] [place], [address] RDW SD 42.2 fl Normal 35.1-43.9 [facility] Comment on above: Performed By: #### L 100.0100, L500.2500 ####[facility] [address] [place], [address] WBC (Bld) [#/Vol] 9.7 10*3/uL Normal 4.4-11.0 [facility] Comment on above: Performed By: #### L 100.0100, L500.2500 ####[facility] [address] [place], [address] Basic Metabolic Profile (BMP )on 04-30-2024 BUN/CRE 15.6 RATIO Normal 10-20 [facility] Comment on above: Performed By: #### L 100.0100, L500.2500 ####[facility] [address] [place], [address] CA,Total 9.0 mg/dL Normal 8.5-10.1 [facility] Comment on above: Performed By: #### L 100.0100, L500.2500 ####[facility] [address] [place], [address] Chloride [Moles/Vol] 101 mmol/L Normal 98-107 [facility] Comment on above: Performed By: #### L 100.0100, L500.2500 ####[facility] [address] [place], [address] CO2 [Moles/Vol] 24.0 mmol/L Normal 21.0-32.0 [facility] Comment on above: Performed By: #### L 100.0100, L500.2500 ####[facility] [address] [place], [address] Creatinine [Mass/Vol] 1.09 mg/dL Normal 0.70-1.30 [facility] Comment on above: Result Comment: The validity of the calculated GFR GFRAA in patients over70 years has not been determined. Clinical correlation isessential. Performed By: #### L 100.0100, L500.2500 ####[facility] [address] [place], [address] ECRCL 50.54 ml/min Normal [facility] Comment on above: Performed By: #### L 100.0100, L500.2500 ####[facility] [address] [place], [address] EST GFR - AA 84 mL/min Normal >60 [facility] Comment on above: Result Comment: Afri can Swiss GFR Calc Performed By: #### L 100.0100, L500.2500 ####[facility] [address] [place], [address] GAP 9 Normal 5-15 [facility] Comment on above: Performed By: #### L 100.0100, L500.2500 ####[facility] [address] [place], [address] GFR/1.73 sq M.predicted among non-blacks MDRD (S/P/Bld) [Vol rate/Area] 69 mL/min/{1.73_m2} Normal >60 [facility] Comment on above: Result Comment: Non- GFR Calc Performed By: #### L 100.0100, L500.2500 ####[facility] [address] [place], [address] Glucose [Mass/Vol] 104 mg/dL Normal 74-106 [facility] Comment on above: Result Comment: Fast ing Glucose result from 100 to 125 mg/dLsuggests IMPAIRED HOMEOSTASIS per A.D.A. criteria. Performed By: #### L 100.0100, L500.2500 ####[facility] [address] [place], [address] Potassium [Moles/Vol] 4.0 mmol/L Normal 3.5-5.1 [facility] Comment on above: Performed By: #### L 100.0100, L500.2500 ####[facility] [address] [place], [address] Sodium [Moles/Vol] 134 mmol/L Low 136-145 [facility] Comment on above: Performed By: #### L 100.0100, L500.2500 ####[facility] [address] [place], [address] Urea nitrogen [Mass/Vol] 17 mg/dL Normal 7-18 [facility] Comment on above: Performed By: #### L 100.0100, L500.2500 ####[facility] [address] [place], [address] CBC W/Diff, Automatedon 09-3 0-4 Absolute Lymph 1.45 X10 3/uL Normal 0.83-4.51 [facility] Comment on above: Performed By: #### L 100.0100, L500.2500 ####[facility] [address] [place], [address] Absolute Neut 5.7 X10 3/uL Normal 2.0-7.7 [facility] Comment on above: Performed By: #### L 100.0100, L500.2500 ####[facility] [address] [place], [address] Basophils/100 WBC (Bld) 0.1 % Normal 0-1 [facility] Comment on above: Performed By: #### L 100.0100, L500.2500 ####[facility] [address] [place], [address] Eosinophils/100 WBC (Bld) 1.3 % Normal 0-5 [facility] Comment on above: Performed By: #### L 100.0100, L500.2500 ####[facility] [address] [place], [address] Erythrocyte distribution width (RBC) [Ratio] 14.0 % Normal 11.6-14.6 [facility] Comment on above: Performed By: #### L 100.0100, L500.2500 ####[facility] [address] [place], [address] Hematocrit (Bld) [Volume fraction] 28.7 % Low 40-54 [facility] Comment on above: Performed By: #### L 100.0100, L500.2500 ####[facility] [address] [place], [address] Hemoglobin (Bld) [Mass/Vol] 9.1 g/dL Low 13.0-16.5 [facility] Comment on above: Performed By: #### L 100.0100, L500.2500 ####[facility] [address] [place], [address] IG% 0.600 Normal 0.0-0.9 [facility] Comment on above: Result Comment: IG% - Immature Granulocytes (promyelocytes, myelocytes andmetamyelocytes) > 1% indicates that a LEFT SHIFT is Present. Performed By: #### L 100.0100, L500.2500 ####[facility] [address] [place], [address] Lymphocytes/100 WBC (Bld) 17.6 % Low 19-41 [facility] Comment on above: Performed By: #### L 100.0100, L500.2500 ####[facility] [address] [place], [address] MCH (RBC) [Entitic mass] 26.0 pg Low 27.0-32.0 [facility] Comment on above: Performed By: #### L 100.0100, L500.2500 ####[facility] [address] [place], [address] MCHC (RBC) [Mass/Vol] 31.7 g/dL Low 32-36 [facility] Comment on above: Performed By: #### L 100.0100, L500.2500 ####[facility] [address] [place], [address] MCV (RBC) [Entitic vol] 82.0 fL Normal 80-94 [facility] Comment on above: Performed By: #### L 100.0100, L500.2500 ####[facility] [address] [place], [address] Monocytes/100 WBC (Bld) 11.8 % High 0-10 [facility] Comment on above: Performed By: #### L 100.0100, L500.2500 ####[facility] [address] [place], [address] Neutrophils/100 WBC (Bld) 68.6 % Normal 47-70 [facility] Comment on above: Performed By: #### L 100.0100, L500.2500 ####[facility] [address] [place], [address] Nucleated RBC (Bld) [#/Vol] 0 10*3/uL Normal 0-5 [facility] Comment on above: Performed By: #### L 100.0100, L500.2500 ####[facility] [address] [place], [address] Platelet mean volume (Bld) [Entitic vol] 9.7 fL Normal 6.2-12.0 [facility] Comment on above: Performed By: #### L 100.0100, L500.2500 ####[facility] [address] [place], [address] Platelets (Bld) [#/Vol] 360 10*3/uL Normal 150-450 [facility] Comment on above: Performed By: #### L 100.0100, L500.2500 ####[facility] [address] [place], [address] RBC (Bld) [#/Vol] 3.50 10*6/uL Low 4.6-6.2 [facility] Comment on above: Performed By: #### L 100.0100, L500.2500 ####[facility] [address] [place], [address] RDW SD 41.8 fl Normal 35.1-43.9 [facility] Comment on above: Performed By: #### L 100.0100, L500.2500 ####[facility] [address] [place], [address] WBC (Bld) [#/Vol] 8.2 10*3/uL Normal 4.4-11.0 [facility] Comment on above: Performed By: #### L 100.0100, L500.2500 ####[facility] [address] [place], [address] Basic Metabolic Profile (BMP )on 04-29-2024 BUN/CRE 13.0 RATIO Normal 10-20 [facility] Comment on above: Performed By: #### L 100.0100, L500.2500 ####[facility] [address] [place], [address] CA,Total 9.1 mg/dL Normal 8.5-10.1 [facility] Comment on above: Performed By: #### L 100.0100, L500.2500 ####[facility] [address] [place], [address] Chloride [Moles/Vol] 101 mmol/L Normal 98-107 [facility] Comment on above: Performed By: #### L 100.0100, L500.2500 ####[facility] [address] [place], [address] CO2 [Moles/Vol] 26.0 mmol/L Normal 21.0-32.0 [facility] Comment on above: Performed By: #### L 100.0100, L500.2500 ####[facility] [address] [place], [address] Creatinine [Mass/Vol] 1.08 mg/dL Normal 0.70-1.30 [facility] Comment on above: Result Comment: The validity of the calculated GFR GFRAA in patients over70 years has not been determined. Clinical correlation isessential. Performed By: #### L 100.0100, L500.2500 ####[facility] [address] [place], [address] ECRCL 51.00 ml/min Normal [facility] Comment on above: Performed By: #### L 100.0100, L500.2500 ####[facility] [address] [place], [address] EST GFR - AA 85 mL/min Normal >60 [facility] Comment on above: Result Comment: Afri can Swiss GFR Calc Performed By: #### L 100.0100, L500.2500 ####[facility] [address] [place], [address] GAP 6 Normal 5-15 [facility] Comment on above: Performed By: #### L 100.0100, L500.2500 ####[facility] [address] [place], [address] GFR/1.73 sq M.predicted among non-blacks MDRD (S/P/Bld) [Vol rate/Area] 70 mL/min/{1.73_m2} Normal >60 [facility] Comment on above: Result Comment: Non- GFR Calc Performed By: #### L 100.0100, L500.2500 ####[facility] [address] [place], [address] Glucose [Mass/Vol] 109 mg/dL High 74-106 [facility] Comment on above: Result Comment: Fast ing Glucose result from 100 to 125 mg/dLsuggests IMPAIRED HOMEOSTASIS per A.D.A. criteria. Performed By: #### L 100.0100, L500.2500 ####[facility] [address] [place], [address] Potassium [Moles/Vol] 4.1 mmol/L Normal 3.5-5.1 [facility] Comment on above: Performed By: #### L 100.0100, L500.2500 ####[facility] [address] [place], [address] Sodium [Moles/Vol] 133 mmol/L Low 136-145 [facility] Comment on above: Performed By: #### L 100.0100, L500.2500 ####[facility] [address] [place], [address] Urea nitrogen [Mass/Vol] 14 mg/dL Normal 7-18 [facility] Comment on above: Performed By: #### L 100.0100, L500.2500 ####[facility] [address] [place], [address] CBC W/Diff, Automatedon 04-02 Absolute Lymph 1.60 X10 3/uL Normal 0.83-4.51 [facility] Comment on above: Performed By: #### L 100.0100, L500.2500 ####[facility] [address] [place], [address] Absolute Neut 6.7 X10 3/uL Normal 2.0-7.7 [facility] Comment on above: Performed By: #### L 100.0100, L500.2500 ####[facility] [address] [place], [address] Basophils/100 WBC (Bld) 0.1 % Normal 0-1 [facility] Comment on above: Performed By: #### L 100.0100, L500.2500 ####[facility] [address] [place], [address] Eosinophils/100 WBC (Bld) 0.3 % Normal 0-5 [facility] Comment on above: Performed By: #### L 100.0100, L500.2500 ####[facility] [address] [place], [address] Erythrocyte distribution width (RBC) [Ratio] 14.0 % Normal 11.6-14.6 [facility] Comment on above: Performed By: #### L 100.0100, L500.2500 ####[facility] [address] [place], [address] Hematocrit (Bld) [Volume fraction] 27.6 % Low 40-54 [facility] Comment on above: Performed By: #### L 100.0100, L500.2500 ####[facility] [address] [place], [address] Hemoglobin (Bld) [Mass/Vol] 8.6 g/dL Low 13.0-16.5 [facility] Comment on above: Performed By: #### L 100.0100, L500.2500 ####[facility] [address] [place], [address] IG% 0.500 Normal 0.0-0.9 [facility] Comment on above: Result Comment: IG% - Immature Granulocytes (promyelocytes, myelocytes andmetamyelocytes) > 1% indicates that a LEFT SHIFT is Present. Performed By: #### L 100.0100, L500.2500 ####[facility] [address] [place], [address] Lymphocytes/100 WBC (Bld) 17.1 % Low 19-41 [facility] Comment on above: Performed By: #### L 100.0100, L500.2500 ####[facility] [address] [place], [address] MCH (RBC) [Entitic mass] 26.2 pg Low 27.0-32.0 [facility] Comment on above: Performed By: #### L 100.0100, L500.2500 ####[facility] [address] [place], [address] MCHC (RBC) [Mass/Vol] 31.2 g/dL Low 32-36 [facility] Comment on above: Performed By: #### L 100.0100, L500.2500 ####[facility] [address] [place], [address] MCV (RBC) [Entitic vol] 84.1 fL Normal 80-94 [facility] Comment on above: Performed By: #### L 100.0100, L500.2500 ####[facility] [address] [place], [address] Monocytes/100 WBC (Bld) 10.0 % Normal 0-10 [facility] Comment on above: Performed By: #### L 100.0100, L500.2500 ####[facility] [address] [place], [address] Neutrophils/100 WBC (Bld) 72.0 % High 47-70 [facility] Comment on above: Performed By: #### L 100.0100, L500.2500 ####[facility] [address] [place], [address] Nucleated RBC (Bld) [#/Vol] 0 10*3/uL Normal 0-5 [facility] Comment on above: Performed By: #### L 100.0100, L500.2500 ####[facility] [address] [place], [address] Platelet mean volume (Bld) [Entitic vol] 9.8 fL Normal 6.2-12.0 [facility] Comment on above: Performed By: #### L 100.0100, L500.2500 ####[facility] [address] [place], [address] Platelets (Bld) [#/Vol] 345 10*3/uL Normal 150-450 [facility] Comment on above: Performed By: #### L 100.0100, L500.2500 ####[facility] [address] [place], [address] RBC (Bld) [#/Vol] 3.28 10*6/uL Low 4.6-6.2 [facility] Comment on above: Performed By: #### L 100.0100, L500.2500 ####[facility] [address] [place], [address] RDW SD 42.7 fl Normal 35.1-43.9 [facility] Comment on above: Performed By: #### L 100.0100, L500.2500 ####[facility] [address] [place], [address] WBC (Bld) [#/Vol] 9.4 10*3/uL Normal 4.4-11.0 [facility] Comment on above: Performed By: #### L 100.0100, L500.2500 ####[facility] [address] [place], [address] Basic Metabolic Profile (BMP )on 04-28-2024 BUN/CRE 13.7 RATIO Normal 10-20 [facility] Comment on above: Performed By: #### L 100.0500, L500.2500 ####[facility] [address] [place], [address] CA,Total 8.2 mg/dL Low 8.5-10.1 [facility] Comment on above: Performed By: #### L 100.0500, L500.2500 ####[facility] [address] [place], [address] Chloride [Moles/Vol] 101 mmol/L Normal 98-107 [facility] Comment on above: Performed By: #### L 100.0500, L500.2500 ####[facility] [address] [place], [address] CO2 [Moles/Vol] 26.0 mmol/L Normal 21.0-32.0 [facility] Comment on above: Performed By: #### L 100.0500, L500.2500 ####[facility] [address] [place], [address] Creatinine [Mass/Vol] 1.31 mg/dL High 0.70-1.30 [facility] Comment on above: Result Comment: The validity of the calculated GFR GFRAA in patients over70 years has not been determined. Clinical correlation isessential. Performed By: #### L 100.0500, L500.2500 ####[facility] [address] [place], [address] ECRCL 42.05 ml/min Normal [facility] Comment on above: Performed By: #### L 100.0500, L500.2500 ####[facility] [address] [place], [address] EST GFR - AA 68 mL/min Normal >60 [facility] Comment on above: Result Comment: Afri can Swiss GFR Calc Performed By: #### L 100.0500, L500.2500 ####[facility] [address] [place], [address] GAP 4 Low 5-15 [facility] Comment on above: Performed By: #### L 100.0500, L500.2500 ####[facility] [address] [place], [address] GFR/1.73 sq M.predicted among non-blacks MDRD (S/P/Bld) [Vol rate/Area] 56 mL/min/{1.73_m2} Low >60 [facility] Comment on above: Result Comment: Non- GFR Calc Performed By: #### L 100.0500, L500.2500 ####[facility] [address] [place], [address] Glucose [Mass/Vol] 130 mg/dL High 74-106 [facility] Comment on above: Result Comment: Fast ing Glucose result greater than or equal to 126 mg/dLsuggests DIABETES MELLITUS per A.D.A. criteria. Performed By: #### L 100.0500, L500.2500 ####[facility] [address] [place], [address] Potassium [Moles/Vol] 4.4 mmol/L Normal 3.5-5.1 [facility] Comment on above: Performed By: #### L 100.0500, L500.2500 ####[facility] [address] [place], [address] Sodium [Moles/Vol] 131 mmol/L Low 136-145 [facility] Comment on above: Performed By: #### L 100.0500, L500.2500 ####[facility] [address] [place], [address] Urea nitrogen [Mass/Vol] 18 mg/dL Normal 7-18 [facility] Comment on above: Performed By: #### L 100.0500, L500.2500 ####[facility] [address] [place], [address] CBC-Complete Blood Cnt No Di ffon 04-28-2024 Erythrocyte distribution width (RBC) [Ratio] 14.0 % Normal 11.6-14.6 [facility] Comment on above: Performed By: #### L 100.0500, L500.2500 ####[facility] [address] [place], [address] Hematocrit (Bld) [Volume fraction] 26.3 % Low 40-54 [facility] Comment on above: Performed By: #### L 100.0500, L500.2500 ####[facility] [address] [place], [address] Hemoglobin (Bld) [Mass/Vol] 8.1 g/dL Low 13.0-16.5 [facility] Comment on above: Performed By: #### L 100.0500, L500.2500 ####[facility] [address] [place], [address] MCH (RBC) [Entitic mass] 26.1 pg Low 27.0-32.0 [facility] Comment on above: Performed By: #### L 100.0500, L500.2500 ####[facility] [address] [place], [address] MCHC (RBC) [Mass/Vol] 30.8 g/dL Low 32-36 [facility] Comment on above: Performed By: #### L 100.0500, L500.2500 ####[facility] [address] [place], [address] MCV (RBC) [Entitic vol] 84.8 fL Normal 80-94 [facility] Comment on above: Performed By: #### L 100.0500, L500.2500 ####[facility] [address] [place], [address] Platelet mean volume (Bld) [Entitic vol] 10.2 fL Normal 6.2-12.0 [facility] Comment on above: Performed By: #### L 100.0500, L500.2500 ####[facility] [address] [place], [address] Platelets (Bld) [#/Vol] 296 10*3/uL Normal 150-450 [facility] Comment on above: Performed By: #### L 100.0500, L500.2500 ####[facility] [address] [place], [address] RBC (Bld) [#/Vol] 3.10 10*6/uL Low 4.6-6.2 [facility] Comment on above: Performed By: #### L 100.0500, L500.2500 ####[facility] [address] [place], [address] RDW SD 43.3 fl Normal 35.1-43.9 [facility] Comment on above: Performed By: #### L 100.0500, L500.2500 ####[facility] [address] [place], [address] WBC (Bld) [#/Vol] 9.1 10*3/uL Normal 4.4-11.0 [facility] Comment on above: Performed By: #### L 100.0500, L500.2500 ####[facility] [address] [place], [address] Bedside Glucoseon 04-27-2024 FINGERSTICK GLU 113 mg/dL High 74-106 [facility] Comment on above: Result Comment: STELLA FLORES OF PATIENT CARE PER NURSING PROTOCOL Performed By: #### L 501.080 ####[facility] [address] [place], [address] CBC-Complete Blood Cnt No Marah riveraon 04-27-2024 Erythrocyte distribution width (RBC) [Ratio] 13.7 % Normal 11.6-14.6 [facility] Comment on above: Performed By: #### L 100.0500 ####[facility] [address] [place], [address] Hematocrit (Bld) [Volume fraction] 30.5 % Low 40-54 [facility] Comment on above: Performed By: #### L 100.0500 ####[facility] [address] [place], [address] Hemoglobin (Bld) [Mass/Vol] 9.4 g/dL Low 13.0-16.5 [facility] Comment on above: Performed By: #### L 100.0500 ####[facility] [address] [place], [address] MCH (RBC) [Entitic mass] 26.0 pg Low 27.0-32.0 [facility] Comment on above: Performed By: #### L 100.0500 ####[facility] [address] [place], [address] MCHC (RBC) [Mass/Vol] 30.8 g/dL Low 32-36 [facility] Comment on above: Performed By: #### L 100.0500 ####[facility] [address] [place], [address] MCV (RBC) [Entitic vol] 84.3 fL Normal 80-94 [facility] Comment on above: Performed By: #### L 100.0500 ####[facility] [address] [place], [address] Platelet mean volume (Bld) [Entitic vol] 9.7 fL Normal 6.2-12.0 [facility] Comment on above: Performed By: #### L 100.0500 ####[facility] [address] [place], [address] Platelets (Bld) [#/Vol] 346 10*3/uL Normal 150-450 [facility] Comment on above: Performed By: #### L 100.0500 ####[facility] [address] [place], [address] RBC (Bld) [#/Vol] 3.62 10*6/uL Low 4.6-6.2 [facility] Comment on above: Performed By: #### L 100.0500 ####[facility] [address] [place], [address] RDW SD 42.4 fl Normal 35.1-43.9 [facility] Comment on above: Performed By: #### L 100.0500 ####[facility] [address] [place], [address] WBC (Bld) [#/Vol] 7.1 10*3/uL Normal 4.4-11.0 [facility] Comment on above: Performed By: #### L 100.0500 ####[facility] [address] [place], [address] MLH-1 (add)on 04-27-2024 MLH-1 (add) Normal [facility] Comment on above: Performed By: #### P MLH1. ####[facility] [address] [place], [address] MR/POSTOP.ANEon 04-27-2024 MR/POSTOP.ANE Normal [facility] MR/[id number] 04-27-2024 MR/POSTOPAN2 Normal [facility] Magnesiumon 04-27-2024 Magnesium [Mass/Vol] 1.9 mg/dL Normal 1.6-2.6 [facility] Comment on above: Performed By: #### L 501.5200 ####[facility] [address] [place], [address] Operative Reporton Operative Report Normal [facility] Surgery Specimen Level VIon 04-27-2024 Surgery Specimen Level Normal [facility] Comment on above: Performed By: #### P SUVI ####[facility] [address] [place], [address] Cardiology Visit Reporton Cardiology Visit Report Normal [facility] Surgery Visit Reporton 04-20 Surgery Visit Report Normal [facility] CBC W/Diff, Automatedon 04-01 Absolute Lymph 1.42 X10 3/uL Normal 0.83-4.51 [facility] Comment on above: Performed By: #### L 100.0100 ####[facility] [address] [place], [address] Absolute Neut 3.1 X10 3/uL Normal 2.0-7.7 [facility] Comment on above: Performed By: #### L 100.0100 ####[facility] [address] [place], [address] Basophils/100 WBC (Bld) 0.5 % Normal 0-1 [facility] Comment on above: Performed By: #### L 100.0100 ####[facility] [address] [place], [address] Eosinophils/100 WBC (Bld) 5.9 % High 0-5 [facility] Comment on above: Performed By: #### L 100.0100 ####[facility] [address] [place], [address] Erythrocyte distribution width (RBC) [Ratio] 13.4 % Normal 11.6-14.6 [facility] Comment on above: Performed By: #### L 100.0100 ####[facility] [address] [place], [address] Hematocrit (Bld) [Volume fraction] 30.5 % Low 40-54 [facility] Comment on above: Performed By: #### L 100.0100 ####[facility] [address] [place], [address] Hemoglobin (Bld) [Mass/Vol] 9.3 g/dL Low 13.0-16.5 [facility] Comment on above: Performed By: #### L 100.0100 ####[facility] [address] [place], [address] IG% 0.200 Normal 0.0-0.9 [facility] Comment on above: Result Comment: IG% - Immature Granulocytes (promyelocytes, myelocytes andmetamyelocytes) > 1% indicates that a LEFT SHIFT is Present. Performed By: #### L 100.0100 ####[facility] [address] [place], [address] Lymphocytes/100 WBC (Bld) 25.6 % Normal 19-41 [facility] Comment on above: Performed By: #### L 100.0100 ####[facility] [address] [place], [address] MCH (RBC) [Entitic mass] 26.2 pg Low 27.0-32.0 [facility] Comment on above: Performed By: #### L 100.0100 ####[facility] [address] [place], [address] MCHC (RBC) [Mass/Vol] 30.5 g/dL Low 32-36 [facility] Comment on above: Performed By: #### L 100.0100 ####[facility] [address] [place], [address] MCV (RBC) [Entitic vol] 85.9 fL Normal 80-94 [facility] Comment on above: Performed By: #### L 100.0100 ####[facility] [address] [place], [address] Monocytes/100 WBC (Bld) 12.1 % High 0-10 [facility] Comment on above: Performed By: #### L 100.0100 ####[facility] [address] [place], [address] Neutrophils/100 WBC (Bld) 55.7 % Normal 47-70 [facility] Comment on above: Performed By: #### L 100.0100 ####[facility] [address] [place], [address] Nucleated RBC (Bld) [#/Vol] 0 10*3/uL Normal 0-5 [facility] Comment on above: Performed By: #### L 100.0100 ####[facility] [address] [place], [address] Platelet mean volume (Bld) [Entitic vol] 9.3 fL Normal 6.2-12.0 [facility] Comment on above: Performed By: #### L 100.0100 ####[facility] [address] [place], [address] Platelets (Bld) [#/Vol] 303 10*3/uL Normal 150-450 [facility] Comment on above: Performed By: #### L 100.0100 ####[facility] [address] [place], [address] RBC (Bld) [#/Vol] 3.55 10*6/uL Low 4.6-6.2 [facility] Comment on above: Performed By: #### L 100.0100 ####[facility] [address] [place], [address] RDW SD 42.2 fl Normal 35.1-43.9 [facility] Comment on above: Performed By: #### L 100.0100 ####[facility] [address] [place], [address] WBC (Bld) [#/Vol] 5.6 10*3/uL Normal 4.4-11.0 [facility] Comment on above: Performed By: #### L 100.0100 ####[facility] [address] [place], [address] Basic Metabolic Profile (BMP )on 04-14-2024 BUN/CRE 13.0 RATIO Normal 10-20 [facility] Comment on above: Performed By: #### L 100.0100, L500.2500 ####[facility] [address] [place], [address] CA,Total 8.1 mg/dL Low 8.5-10.1 [facility] Comment on above: Performed By: #### L 100.0100, L500.2500 ####[facility] [address] [place], [address] Chloride [Moles/Vol] 108 mmol/L High 98-107 [facility] Comment on above: Performed By: #### L 100.0100, L500.2500 ####[facility] [address] [place], [address] CO2 [Moles/Vol] 23.0 mmol/L Normal 21.0-32.0 [facility] Comment on above: Performed By: #### L 100.0100, L500.2500 ####[facility] [address] [place], [address] Creatinine [Mass/Vol] 1.23 mg/dL Normal 0.70-1.30 [facility] Comment on above: Result Comment: The validity of the calculated GFR GFRAA in patients over70 years has not been determined. Clinical correlation isessential. Performed By: #### L 100.0100, L500.2500 ####[facility] [address] [place], [address] ECRCL 44.78 ml/min Normal [facility] Comment on above: Performed By: #### L 100.0100, L500.2500 ####[facility] [address] [place], [address] EST GFR - AA 73 mL/min Normal >60 [facility] Comment on above: Result Comment: Afri can Swiss GFR Calc Performed By: #### L 100.0100, L500.2500 ####[facility] [address] [place], [address] GAP 7 Normal 5-15 [facility] Comment on above: Performed By: #### L 100.0100, L500.2500 ####[facility] [address] [place], [address] GFR/1.73 sq M.predicted among non-blacks MDRD (S/P/Bld) [Vol rate/Area] 60 mL/min/{1.73_m2} Normal >60 [facility] Comment on above: Result Comment: Non- GFR Calc Performed By: #### L 100.0100, L500.2500 ####[facility] [address] [place], [address] Glucose [Mass/Vol] 105 mg/dL Normal 74-106 [facility] Comment on above: Result Comment: Fast ing Glucose result from 100 to 125 mg/dLsuggests IMPAIRED HOMEOSTASIS per A.D.A. criteria. Performed By: #### L 100.0100, L500.2500 ####[facility] [address] [place], [address] Potassium [Moles/Vol] 3.4 mmol/L Low 3.5-5.1 [facility] Comment on above: Performed By: #### L 100.0100, L500.2500 ####[facility] [address] [place], [address] Sodium [Moles/Vol] 138 mmol/L Normal 136-145 [facility] Comment on above: Performed By: #### L 100.0100, L500.2500 ####[facility] [address] [place], [address] Urea nitrogen [Mass/Vol] 16 mg/dL Normal 7-18 [facility] Comment on above: Performed By: #### L 100.0100, L500.2500 ####[facility] [address] [place], [address] CBC W/Diff, Automatedon 04-01 Absolute Lymph 1.52 X10 3/uL Normal 0.83-4.51 [facility] Comment on above: Performed By: #### L 100.0100, L500.2500 ####[facility] [address] [place], [address] Absolute Neut 4.8 X10 3/uL Normal 2.0-7.7 [facility] Comment on above: Performed By: #### L 100.0100, L500.2500 ####[facility] [address] [place], [address] Basophils/100 WBC (Bld) 0.1 % Normal 0-1 [facility] Comment on above: Performed By: #### L 100.0100, L500.2500 ####[facility] [address] [place], [address] Eosinophils/100 WBC (Bld) 3.4 % Normal 0-5 [facility] Comment on above: Performed By: #### L 100.0100, L500.2500 ####[facility] [address] [place], [address] Erythrocyte distribution width (RBC) [Ratio] 13.4 % Normal 11.6-14.6 [facility] Comment on above: Performed By: #### L 100.0100, L500.2500 ####[facility] [address] [place], [address] Hematocrit (Bld) [Volume fraction] 30.9 % Low 40-54 [facility] Comment on above: Performed By: #### L 100.0100, L500.2500 ####[facility] [address] [place], [address] Hemoglobin (Bld) [Mass/Vol] 9.5 g/dL Low 13.0-16.5 [facility] Comment on above: Performed By: #### L 100.0100, L500.2500 ####[facility] [address] [place], [address] IG% 0.300 Normal 0.0-0.9 [facility] Comment on above: Result Comment: IG% - Immature Granulocytes (promyelocytes, myelocytes andmetamyelocytes) > 1% indicates that a LEFT SHIFT is Present. Performed By: #### L 100.0100, L500.2500 ####[facility] [address] [place], [address] Lymphocytes/100 WBC (Bld) 20.1 % Normal 19-41 [facility] Comment on above: Performed By: #### L 100.0100, L500.2500 ####[facility] [address] [place], [address] MCH (RBC) [Entitic mass] 26.2 pg Low 27.0-32.0 [facility] Comment on above: Performed By: #### L 100.0100, L500.2500 ####[facility] [address] [place], [address] MCHC (RBC) [Mass/Vol] 30.7 g/dL Low 32-36 [facility] Comment on above: Performed By: #### L 100.0100, L500.2500 ####[facility] [address] [place], [address] MCV (RBC) [Entitic vol] 85.4 fL Normal 80-94 [facility] Comment on above: Performed By: #### L 100.0100, L500.2500 ####[facility] [address] [place], [address] Monocytes/100 WBC (Bld) 12.2 % High 0-10 [facility] Comment on above: Performed By: #### L 100.0100, L500.2500 ####[facility] [address] [place], [address] Neutrophils/100 WBC (Bld) 63.9 % Normal 47-70 [facility] Comment on above: Performed By: #### L 100.0100, L500.2500 ####[facility] [address] [place], [address] Nucleated RBC (Bld) [#/Vol] 0 10*3/uL Normal 0-5 [facility] Comment on above: Performed By: #### L 100.0100, L500.2500 ####[facility] [address] [place], [address] Platelet mean volume (Bld) [Entitic vol] 9.4 fL Normal 6.2-12.0 [facility] Comment on above: Performed By: #### L 100.0100, L500.2500 ####[facility] [address] [place], [address] Platelets (Bld) [#/Vol] 321 10*3/uL Normal 150-450 [facility] Comment on above: Performed By: #### L 100.0100, L500.2500 ####[facility] [address] [place], [address] RBC (Bld) [#/Vol] 3.62 10*6/uL Low 4.6-6.2 [facility] Comment on above: Performed By: #### L 100.0100, L500.2500 ####[facility] [address] [place], [address] RDW SD 42.0 fl Normal 35.1-43.9 [facility] Comment on above: Performed By: #### L 100.0100, L500.2500 ####[facility] [address] [place], [address] WBC (Bld) [#/Vol] 7.6 10*3/uL Normal 4.4-11.0 [facility] Comment on above: Performed By: #### L 100.0100, L500.2500 ####[facility] [address] [place], [address] MR/PN.GIon 04-14-2024 MR/PN.GI Normal [facility] Basic Metabolic Profile (BMP )on 04-13-2024 BUN/CRE 12.6 RATIO Normal 10-20 [facility] Comment on above: Performed By: #### L 100.0100, L500.2500 ####[facility] [address] [place], [address] CA,Total 8.9 mg/dL Normal 8.5-10.1 [facility] Comment on above: Performed By: #### L 100.0100, L500.2500 ####[facility] [address] [place], [address] Chloride [Moles/Vol] 106 mmol/L Normal 98-107 [facility] Comment on above: Performed By: #### L 100.0100, L500.2500 ####[facility] [address] [place], [address] CO2 [Moles/Vol] 24.0 mmol/L Normal 21.0-32.0 [facility] Comment on above: Performed By: #### L 100.0100, L500.2500 ####[facility] [address] [place], [address] Creatinine [Mass/Vol] 1.19 mg/dL Normal 0.70-1.30 [facility] Comment on above: Result Comment: The validity of the calculated GFR GFRAA in patients over70 years has not been determined. Clinical correlation isessential. Performed By: #### L 100.0100, L500.2500 ####[facility] [address] [place], [address] ECRCL 46.29 ml/min Normal [facility] Comment on above: Performed By: #### L 100.0100, L500.2500 ####[facility] [address] [place], [address] EST GFR - AA 76 mL/min Normal >60 [facility] Comment on above: Result Comment: Afri can Swiss GFR Calc Performed By: #### L 100.0100, L500.2500 ####[facility] [address] [place], [address] GAP 8 Normal 5-15 [facility] Comment on above: Performed By: #### L 100.0100, L500.2500 ####[facility] [address] [place], [address] GFR/1.73 sq M.predicted among non-blacks MDRD (S/P/Bld) [Vol rate/Area] 63 mL/min/{1.73_m2} Normal >60 [facility] Comment on above: Result Comment: Non- GFR Calc Performed By: #### L 100.0100, L500.2500 ####[facility] [address] [place], [address] Glucose [Mass/Vol] 99 mg/dL Normal 74-106 [facility] Comment on above: Performed By: #### L 100.0100, L500.2500 ####[facility] [address] [place], [address] Potassium [Moles/Vol] 3.6 mmol/L Normal 3.5-5.1 [facility] Comment on above: Performed By: #### L 100.0100, L500.2500 ####[facility] [address] [place], [address] Sodium [Moles/Vol] 138 mmol/L Normal 136-145 [facility] Comment on above: Performed By: #### L 100.0100, L500.2500 ####[facility] [address] [place], [address] Urea nitrogen [Mass/Vol] 15 mg/dL Normal 7-18 [facility] Comment on above: Performed By: #### L 100.0100, L500.2500 ####[facility] [address] [place], [address] CBC W/Diff, Automatedon 04-01-2023 Absolute Lymph 1.30 X10 3/uL Normal 0.83-4.51 [facility] Comment on above: Performed By: #### L 100.0100, L500.2500 ####[facility] [address] [place], [address] Absolute Neut 3.5 X10 3/uL Normal 2.0-7.7 [facility] Comment on above: Performed By: #### L 100.0100, L500.2500 ####[facility] [address] [place], [address] Basophils/100 WBC (Bld) 0.2 % Normal 0-1 [facility] Comment on above: Performed By: #### L 100.0100, L500.2500 ####[facility] [address] [place], [address] Eosinophils/100 WBC (Bld) 2.8 % Normal 0-5 [facility] Comment on above: Performed By: #### L 100.0100, L500.2500 ####[facility] [address] [place], [address] Erythrocyte distribution width (RBC) [Ratio] 13.4 % Normal 11.6-14.6 [facility] Comment on above: Performed By: #### L 100.0100, L500.2500 ####[facility] [address] [place], [address] Hematocrit (Bld) [Volume fraction] 34.1 % Low 40-54 [facility] Comment on above: Performed By: #### L 100.0100, L500.2500 ####[facility] [address] [place], [address] Hemoglobin (Bld) [Mass/Vol] 10.8 g/dL Low 13.0-16.5 [facility] Comment on above: Performed By: #### L 100.0100, L500.2500 ####[facility] [address] [place], [address] IG% 0.300 Normal 0.0-0.9 [facility] Comment on above: Result Comment: IG% - Immature Granulocytes (promyelocytes, myelocytes andmetamyelocytes) > 1% indicates that a LEFT SHIFT is Present. Performed By: #### L 100.0100, L500.2500 ####[facility] [address] [place], [address] Lymphocytes/100 WBC (Bld) 22.6 % Normal 19-41 [facility] Comment on above: Performed By: #### L 100.0100, L500.2500 ####[facility] [address] [place], [address] MCH (RBC) [Entitic mass] 26.7 pg Low 27.0-32.0 [facility] Comment on above: Performed By: #### L 100.0100, L500.2500 ####[facility] [address] [place], [address] MCHC (RBC) [Mass/Vol] 31.7 g/dL Low 32-36 [facility] Comment on above: Performed By: #### L 100.0100, L500.2500 ####[facility] [address] [place], [address] MCV (RBC) [Entitic vol] 84.4 fL Normal 80-94 [facility] Comment on above: Performed By: #### L 100.0100, L500.2500 ####[facility] [address] [place], [address] Monocytes/100 WBC (Bld) 12.5 % High 0-10 [facility] Comment on above: Performed By: #### L 100.0100, L500.2500 ####[facility] [address] [place], [address] Neutrophils/100 WBC (Bld) 61.6 % Normal 47-70 [facility] Comment on above: Performed By: #### L 100.0100, L500.2500 ####[facility] [address] [place], [address] Nucleated RBC (Bld) [#/Vol] 0 10*3/uL Normal 0-5 [facility] Comment on above: Performed By: #### L 100.0100, L500.2500 ####[facility] [address] [place], [address] Platelet mean volume (Bld) [Entitic vol] 9.4 fL Normal 6.2-12.0 [facility] Comment on above: Performed By: #### L 100.0100, L500.2500 ####[facility] [address] [place], [address] Platelets (Bld) [#/Vol] 343 10*3/uL Normal 150-450 [facility] Comment on above: Performed By: #### L 100.0100, L500.2500 ####[facility] [address] [place], [address] RBC (Bld) [#/Vol] 4.04 10*6/uL Low 4.6-6.2 [facility] Comment on above: Performed By: #### L 100.0100, L500.2500 ####[facility] [address] [place], [address] RDW SD 41.8 fl Normal 35.1-43.9 [facility] Comment on above: Performed By: #### L 100.0100, L500.2500 ####[facility] [address] [place], [address] WBC (Bld) [#/Vol] 5.8 10*3/uL Normal 4.4-11.0 [facility] Comment on above: Performed By: #### L 100.0100, L500.2500 ####[facility] [address] [place], [address] Carcinoembryonic Antigenon 0 04-13-2024 CEA 2.7 ng/mL Normal 0.0-4.7 [facility] Comment on above: Result Comment: Nons mokers <3.9 Smokers <5.6[employer] Electrochemiluminescence Immunoassay(ECLIA)Values obtained with different assay methods or kitscannot be used interchangeably. Results cannot beinterpreted as absolute evidence of the presence orabsence of malignant disease.Performed at: [address] [id number] Director: Jian Paredes PhD, Phone: [phone] Performed By: #### L 5049.0531 ####[facility] [address] [place], [address] Colonoscopy Reporton 024 Colonoscopy Report Normal [facility] HER-2-DIONNA (initial)on 2023 HER-2-DIONNA (initial) Normal [facility] Comment on above: Performed By: #### P HER2 ####[facility] [address] [place], [address] MR/POSTOP.ANEon 04-13-2024 MR/POSTOP.ANE Normal [facility] MR/KHTITXNF1io 04-13-2024 MR/POSTOPAN2 Normal [facility] Partial Thromboplast Timeon 04-13-2024 aPTT Coag (Bld) [Time] 29.4 s Normal 24.1-36.2 [facility] Comment on above: Performed By: #### L 300.3900, L300.4310 ####[facility] [address] [place], [address] Prothrombin Time w/INRon INR Coag (PPP) [Relative time] 1.1 {INR} Normal [facility] Comment on above: Performed By: #### L 300.3900, L300.4310 ####[facility] [address] [place], [address] PT Coag (PPP) [Time] 14.6 s Normal 11.7-14.9 [facility] Comment on above: Performed By: #### L 300.3900, L300.4310 ####[facility] [address] [place], [address] Special Stain Group Ion 04-01 Special Stain Group I Normal [facility] Comment on above: Performed By: #### P SSI ####[facility] [address] [place], [address] CBC W/Diff, Automatedon 04-01 Absolute Lymph 1.44 X10 3/uL Normal 0.83-4.51 [facility] Comment on above: Performed By: #### L 501.2300, L100.0100, L500.4050, L501.9520, L501.5200 ####[facility] [address] [place], [address] Absolute Neut 3.5 X10 3/uL Normal 2.0-7.7 [facility] Comment on above: Performed By: #### L 501.2300, L100.0100, L500.4050, L501.9520, L501.5200 ####[facility] [address] [place], [address] Basophils/100 WBC (Bld) 0.4 % Normal 0-1 [facility] Comment on above: Performed By: #### L 501.2300, L100.0100, L500.4050, L501.9520, L501.5200 ####[facility] [address] [place], [address] Eosinophils/100 WBC (Bld) 1.8 % Normal 0-5 [facility] Comment on above: Performed By: #### L 501.2300, L100.0100, L500.4050, L501.9520, L501.5200 ####[facility] [address] [place], [address] Erythrocyte distribution width (RBC) [Ratio] 13.3 % Normal 11.6-14.6 [facility] Comment on above: Performed By: #### L 501.2300, L100.0100, L500.4050, L501.9520, L501.5200 ####[facility] [address] [place], [address] Hematocrit (Bld) [Volume fraction] 32.7 % Low 40-54 [facility] Comment on above: Performed By: #### L 501.2300, L100.0100, L500.4050, L501.9520, L501.5200 ####[facility] [address] [place], [address] Hemoglobin (Bld) [Mass/Vol] 10.5 g/dL Low 13.0-16.5 [facility] Comment on above: Performed By: #### L 501.2300, L100.0100, L500.4050, L501.9520, L501.5200 ####[facility] [address] [place], [address] IG% 0.500 Normal 0.0-0.9 [facility] Comment on above: Result Comment: IG% - Immature Granulocytes (promyelocytes, myelocytes andmetamyelocytes) > 1% indicates that a LEFT SHIFT is Present. Performed By: #### L 501.2300, L100.0100, L500.4050, L501.9520, L501.5200 ####[facility] [address] [place], [address] Lymphocytes/100 WBC (Bld) 25.3 % Normal 19-41 [facility] Comment on above: Performed By: #### L 501.2300, L100.0100, L500.4050, L501.9520, L501.5200 ####[facility] [address] [place], [address] MCH (RBC) [Entitic mass] 27.5 pg Normal 27.0-32.0 [facility] Comment on above: Performed By: #### L 501.2300, L100.0100, L500.4050, L501.9520, L501.5200 ####[facility] [address] [place], [address] MCHC (RBC) [Mass/Vol] 32.1 g/dL Normal 32-36 [facility] Comment on above: Performed By: #### L 501.2300, L100.0100, L500.4050, L501.9520, L501.5200 ####[facility] [address] [place], [address] MCV (RBC) [Entitic vol] 85.6 fL Normal 80-94 [facility] Comment on above: Performed By: #### L 501.2300, L100.0100, L500.4050, L501.9520, L501.5200 ####[facility] [address] [place], [address] Monocytes/100 WBC (Bld) 10.5 % High 0-10 [facility] Comment on above: Performed By: #### L 501.2300, L100.0100, L500.4050, L501.9520, L501.5200 ####[facility] [address] [place], [address] Neutrophils/100 WBC (Bld) 61.5 % Normal 47-70 [facility] Comment on above: Performed By: #### L 501.2300, L100.0100, L500.4050, L501.9520, L501.5200 ####[facility] [address] [place], [address] Nucleated RBC (Bld) [#/Vol] 0 10*3/uL Normal 0-5 [facility] Comment on above: Performed By: #### L 501.2300, L100.0100, L500.4050, L501.9520, L501.5200 ####[facility] [address] [place], [address] Platelet mean volume (Bld) [Entitic vol] 9.2 fL Normal 6.2-12.0 [facility] Comment on above: Performed By: #### L 501.2300, L100.0100, L500.4050, L501.9520, L501.5200 ####[facility] [address] [place], [address] Platelets (Bld) [#/Vol] 314 10*3/uL Normal 150-450 [facility] Comment on above: Performed By: #### L 501.2300, L100.0100, L500.4050, L501.9520, L501.5200 ####[facility] [address] [place], [address] RBC (Bld) [#/Vol] 3.82 10*6/uL Low 4.6-6.2 [facility] Comment on above: Performed By: #### L 501.2300, L100.0100, L500.4050, L501.9520, L501.5200 ####[facility] [address] [place], [address] RDW SD 41.6 fl Normal 35.1-43.9 [facility] Comment on above: Performed By: #### L 501.2300, L100.0100, L500.4050, L501.9520, L501.5200 ####[facility] [address] [place], [address] WBC (Bld) [#/Vol] 5.7 10*3/uL Normal 4.4-11.0 [facility] Comment on above: Performed By: #### L 501.2300, L100.0100, L500.4050, L501.9520, L501.5200 ####[facility] [address] [place], [address] Comprehensive Metabolic [facility] 04-12-2024 Albumin [Mass/Vol] 3.8 g/dL Normal 3.2-5.0 [facility] Comment on above: Performed By: #### L 501.2300, L100.0100, L500.4050, L501.9520, L501.5200 ####[facility] [address] [place], [address] Albumin/Globulin [Mass ratio] 1.1 {ratio} Normal 0.9-2.4 [facility] Comment on above: Performed By: #### L 501.2300, L100.0100, L500.4050, L501.9520, L501.5200 ####[facility] [address] [place], [address] ALK P 88 U/L Normal 45-117 [facility] Comment on above: Performed By: #### L 501.2300, L100.0100, L500.4050, L501.9520, L501.5200 ####[facility] [address] [place], [address] ALT [Catalytic activity/Vol] 22 U/L Normal 16-61 [facility] Comment on above: Performed By: #### L 501.2300, L100.0100, L500.4050, L501.9520, L501.5200 ####[facility] [address] [place], [address] AST [Catalytic activity/Vol] 20 U/L Normal 15-37 [facility] Comment on above: Performed By: #### L 501.2300, L100.0100, L500.4050, L501.9520, L501.5200 ####[facility] [address] [place], [address] Bilirubin [Mass/Vol] 0.90 mg/dL Normal 0.20-1.00 [facility] Comment on above: Result Comment: For patients on eltrombopag therapy, use of Dimension [place] TBIL is not recommended. Performed By: #### L 501.2300, L100.0100, L500.4050, L501.9520, L501.5200 ####[facility] [address] [place], [address] BUN/CRE 13.7 RATIO Normal 10-20 [facility] Comment on above: Performed By: #### L 501.2300, L100.0100, L500.4050, L501.9520, L501.5200 ####[facility] [address] [place], [address] CA,Total 8.9 mg/dL Normal 8.5-10.1 [facility] Comment on above: Performed By: #### L 501.2300, L100.0100, L500.4050, L501.9520, L501.5200 ####[facility] [address] [place], [address] Chloride [Moles/Vol] 104 mmol/L Normal 98-107 [facility] Comment on above: Performed By: #### L 501.2300, L100.0100, L500.4050, L501.9520, L501.5200 ####[facility] [address] [place], [address] CO2 [Moles/Vol] 29.0 mmol/L Normal 21.0-32.0 [facility] Comment on above: Performed By: #### L 501.2300, L100.0100, L500.4050, L501.9520, L501.5200 ####[facility] [address] [place], [address] Creatinine [Mass/Vol] 1.17 mg/dL Normal 0.70-1.30 [facility] Comment on above: Result Comment: The validity of the calculated GFR GFRAA in patients over70 years has not been determined. Clinical correlation isessential. Performed By: #### L 501.2300, L100.0100, L500.4050, L501.9520, L501.5200 ####[facility] [address] [place], [address] ECRCL 48.72 ml/min Normal [facility] Comment on above: Performed By: #### L 501.2300, L100.0100, L500.4050, L501.9520, L501.5200 ####[facility] [address] [place], [address] EST GFR - AA 77 mL/min Normal >60 [facility] Comment on above: Result Comment: Afri can Swiss GFR Calc Performed By: #### L 501.2300, L100.0100, L500.4050, L501.9520, L501.5200 ####[facility] [address] [place], [address] GAP 4 Low 5-15 [facility] Comment on above: Performed By: #### L 501.2300, L100.0100, L500.4050, L501.9520, L501.5200 ####[facility] [address] [place], [address] GFR/1.73 sq M.predicted among non-blacks MDRD (S/P/Bld) [Vol rate/Area] 64 mL/min/{1.73_m2} Normal >60 [facility] Comment on above: Result Comment: Non- GFR Calc Performed By: #### L 501.2300, L100.0100, L500.4050, L501.9520, L501.5200 ####[facility] [address] [place], [address] Globulin (S) [Mass/Vol] 3.5 g/dL Normal 2.2-4.2 [facility] Comment on above: Performed By: #### L 501.2300, L100.0100, L500.4050, L501.9520, L501.5200 ####[facility] [address] [place], [address] Glucose [Mass/Vol] 98 mg/dL Normal 74-106 [facility] Comment on above: Performed By: #### L 501.2300, L100.0100, L500.4050, L501.9520, L501.5200 ####[facility] [address] [place], [address] Potassium [Moles/Vol] 3.5 mmol/L Normal 3.5-5.1 [facility] Comment on above: Performed By: #### L 501.2300, L100.0100, L500.4050, L501.9520, L501.5200 ####[facility] [address] [place], [address] Sodium [Moles/Vol] 137 mmol/L Normal 136-145 [facility] Comment on above: Performed By: #### L 501.2300, L100.0100, L500.4050, L501.9520, L501.5200 ####[facility] [address] [place], [address] T PROT 7.3 g/dL Normal 6.4-8.2 [facility] Comment on above: Performed By: #### L 501.2300, L100.0100, L500.4050, L501.9520, L501.5200 ####[facility] [address] [place], [address] Urea nitrogen [Mass/Vol] 16 mg/dL Normal 7-18 [facility] Comment on above: Performed By: #### L 501.2300, L100.0100, L500.4050, L501.9520, L501.5200 ####[facility] [address] [place], [address] Consultation - Surgicalon Consultation - Surgical Normal [facility] Ferritinon 04-12-2024 Ferritin [Mass/Vol] 17 ng/mL Low 26-388 [facility] Comment on above: Performed By: #### L 503.6010, L503.6550 ####[facility] [address] [place], [address] Iron+Iron Binding Capacityon 04-12-2024 Iron [Mass/Vol] 16 ug/dL Low 65-175 [facility] Comment on above: Performed By: #### L 503.6030, L503.6550 ####[facility] [address] [place], [address] IRON SATURATION 4.1 Low 15.0-55.0 [facility] Comment on above: Performed By: #### L 503.6030, L503.6550 ####[facility] [address] [place], [address] TIBC 387 ug/dL Normal 250-450 [facility] Comment on above: Performed By: #### L 503.6030, L503.6550 ####[facility] [address] [place], [address] MR/CON.PCM.GIon 04-12-2024 MR/CON.PCM.GI Normal [facility] Magnesiumon 04-12-2024 Magnesium [Mass/Vol] 2.1 mg/dL Normal 1.6-2.6 [facility] Comment on above: Performed By: #### L 501.2300, L100.0100, L500.4050, L501.9520, L501.5200 ####[facility] [address] [place], [address] Partial Thromboplast Timeon 04-12-2024 aPTT Coag (Bld) [Time] 27.7 s Normal 24.1-36.2 [facility] Comment on above: Performed By: #### L 300.4310, L300.3900 ####[facility] [address] [place], [address] Phosphoruson 04-12-2024 Phosphate [Mass/Vol] 3.5 mg/dL Normal 2.5-4.9 [facility] Comment on above: Performed By: #### L 501.2300, L100.0100, L500.4050, L501.9520, L501.5200 ####[facility] [address] [place], [address] Prothrombin Time w/INRon INR Coag (PPP) [Relative time] 1.0 {INR} Normal [facility] Comment on above: Performed By: #### L 300.4310, L300.3900 ####[facility] [address] [place], [address] PT Coag (PPP) [Time] 13.1 s Normal 11.7-14.9 [facility] Comment on above: Performed By: #### L 300.4310, L300.3900 ####[facility] [address] [place], [address] Thyroid Stim Hormone (TSH)on 04-12-2024 TSH 3.360 uIU/mL Normal 0.358-3.740 [facility] Comment on above: Performed By: #### L 501.2300, L100.0100, L500.4050, L501.9520, L501.5200 ####[facility] [address] [place], [address] 12 Lead EKGon 04-11-2024 12 Lead EKG Normal [facility] BNP,B-Type NATRIURETIC PEPTI Иван 04-11-2024 Natriuretic peptide B (Bld) [Mass/Vol] 371.0 pg/mL High 0-100 [facility] Comment on above: Performed By: #### L 501.4020, L500.4050, L300.8000, L503.6620, L100.0100 ####[facility] [address] [place], [address] BRCon 04-11-2024 RC Normal [facility] Comment on above: Result Comment: [id number] OP RC TRANSFUSED 04/12/24 [id number] OP RC TRANSFUSED 04/11/24 2311 Performed By: #### B RC ####[facility] [address] [place], [address] Basic Metabolic Profile (BMP )on 04-11-2024 BUN/CRE 13.8 RATIO Normal 10-20 [facility] Comment on above: Order Comment: 'TROP ' Serial specimen #1, #2 or #3: 1 Performed By: #### L 300.3900, L500.2500, L501.4020, L100.0100, L500.3400, L300.4310, BTS, L501.2450 ####[facility] [address] [place], [address] CA,Total 8.7 mg/dL Normal 8.5-10.1 [facility] Comment on above: Order Comment: 'TROP ' Serial specimen #1, #2 or #3: 1 Performed By: #### L 300.3900, L500.2500, L501.4020, L100.0100, L500.3400, L300.4310, BTS, L501.2450 ####[facility] [address] [place], [address] Chloride [Moles/Vol] 105 mmol/L Normal 98-107 [facility] Comment on above: Order Comment: 'TROP ' Serial specimen #1, #2 or #3: 1 Performed By: #### L 300.3900, L500.2500, L501.4020, L100.0100, L500.3400, L300.4310, BTS, L501.2450 ####[facility] [address] [place], [address] CO2 [Moles/Vol] 26.0 mmol/L Normal 21.0-32.0 [facility] Comment on above: Order Comment: 'TROP ' Serial specimen #1, #2 or #3: 1 Performed By: #### L 300.3900, L500.2500, L501.4020, L100.0100, L500.3400, L300.4310, BTS, L501.2450 ####[facility] [address] [place], [address] Creatinine [Mass/Vol] 1.30 mg/dL Normal 0.70-1.30 [facility] Comment on above: Order Comment: 'TROP ' Serial specimen #1, #2 or #3: 1 Result Comment: The validity of the calculated GFR GFRAA in patients over70 years has not been determined. Clinical correlation isessential. Performed By: #### L 300.3900, L500.2500, L501.4020, L100.0100, L500.3400, L300.4310, BTS, L501.2450 ####[facility] [address] [place], [address] ECRCL 45.94 ml/min Normal [facility] Comment on above: Order Comment: 'TROP ' Serial specimen #1, #2 or #3: 1 Performed By: #### L 300.3900, L500.2500, L501.4020, L100.0100, L500.3400, L300.4310, BTS, L501.2450 ####[facility] [address] [place], [address] EST GFR - AA 68 mL/min Normal >60 [facility] Comment on above: Order Comment: 'TROP ' Serial specimen #1, #2 or #3: 1 Result Comment: Afri can Swiss GFR Calc Performed By: #### L 300.3900, L500.2500, L501.4020, L100.0100, L500.3400, L300.4310, BTS, L501.2450 ####[facility] [address] [place], [address] GAP 10 Normal 5-15 [facility] Comment on above: Order Comment: 'TROP ' Serial specimen #1, #2 or #3: 1 Performed By: #### L 300.3900, L500.2500, L501.4020, L100.0100, L500.3400, L300.4310, BTS, L501.2450 ####[facility] [address] [place], [address] GFR/1.73 sq M.predicted among non-blacks MDRD (S/P/Bld) [Vol rate/Area] 56 mL/min/{1.73_m2} Low >60 [facility] Comment on above: Order Comment: 'TROP ' Serial specimen #1, #2 or #3: 1 Result Comment: Non- GFR Calc Performed By: #### L 300.3900, L500.2500, L501.4020, L100.0100, L500.3400, L300.4310, BTS, L501.2450 ####[facility] [address] [place], [address] Glucose [Mass/Vol] 123 mg/dL High 74-106 [facility] Comment on above: Order Comment: 'TROP ' Serial specimen #1, #2 or #3: 1 Result Comment: Fast ing Glucose result from 100 to 125 mg/dLsuggests IMPAIRED HOMEOSTASIS per A.D.A. criteria. Performed By: #### L 300.3900, L500.2500, L501.4020, L100.0100, L500.3400, L300.4310, BTS, L501.2450 ####[facility] [address] [place], [address] Potassium [Moles/Vol] 3.7 mmol/L Normal 3.5-5.1 [facility] Comment on above: Order Comment: 'TROP ' Serial specimen #1, #2 or #3: 1 Performed By: #### L 300.3900, L500.2500, L501.4020, L100.0100, L500.3400, L300.4310, BTS, L501.2450 ####[facility] [address] [place], [address] Sodium [Moles/Vol] 141 mmol/L Normal 136-145 [facility] Comment on above: Order Comment: 'TROP ' Serial specimen #1, #2 or #3: 1 Performed By: #### L 300.3900, L500.2500, L501.4020, L100.0100, L500.3400, L300.4310, BTS, L501.2450 ####[facility] [address] [place], [address] Urea nitrogen [Mass/Vol] 18 mg/dL Normal 7-18 [facility] Comment on above: Order Comment: 'TROP ' Serial specimen #1, #2 or #3: 1 Performed By: #### L 300.3900, L500.2500, L501.4020, L100.0100, L500.3400, L300.4310, BTS, L501.2450 ####[facility] [address] [place], [address] CBC W/Diff, Automatedon 04-01 Absolute Lymph 1.15 X10 3/uL Normal 0.83-4.51 [facility] Comment on above: Performed By: #### L 300.3900, L500.2500, L501.4020, L100.0100, L500.3400, L300.4310, BTS, L501.2450 ####[facility] [address] [place], [address] Absolute Neut 4.0 X10 3/uL Normal 2.0-7.7 [facility] Comment on above: Performed By: #### L 300.3900, L500.2500, L501.4020, L100.0100, L500.3400, L300.4310, BTS, L501.2450 ####[facility] [address] [place], [address] Basophils/100 WBC (Bld) 0.5 % Normal 0-1 [facility] Comment on above: Performed By: #### L 300.3900, L500.2500, L501.4020, L100.0100, L500.3400, L300.4310, BTS, L501.2450 ####[facility] [address] [place], [address] Eosinophils/100 WBC (Bld) 1.3 % Normal 0-5 [facility] Comment on above: Performed By: #### L 300.3900, L500.2500, L501.4020, L100.0100, L500.3400, L300.4310, BTS, L501.2450 ####[facility] [address] [place], [address] Erythrocyte distribution width (RBC) [Ratio] 13.2 % Normal 11.6-14.6 [facility] Comment on above: Performed By: #### L 300.3900, L500.2500, L501.4020, L100.0100, L500.3400, L300.4310, BTS, L501.2450 ####[facility] [address] [place], [address] Hematocrit (Bld) [Volume fraction] 21.3 % Low 40-54 [facility] Comment on above: Performed By: #### L 300.3900, L500.2500, L501.4020, L100.0100, L500.3400, L300.4310, BTS, L501.2450 ####[facility] [address] [place], [address] Hemoglobin (Bld) [Mass/Vol] 6.7 g/dL Low 13.0-16.5 [facility] Comment on above: Performed By: #### L 300.3900, L500.2500, L501.4020, L100.0100, L500.3400, L300.4310, BTS, L501.2450 ####[facility] [address] [place], [address] IG% 0.500 Normal 0.0-0.9 [facility] Comment on above: Result Comment: IG% - Immature Granulocytes (promyelocytes, myelocytes andmetamyelocytes) > 1% indicates that a LEFT SHIFT is Present. Performed By: #### L 300.3900, L500.2500, L501.4020, L100.0100, L500.3400, L300.4310, BTS, L501.2450 ####[facility] [address] [place], [address] Lymphocytes/100 WBC (Bld) 19.0 % Normal 19-41 [facility] Comment on above: Performed By: #### L 300.3900, L500.2500, L501.4020, L100.0100, L500.3400, L300.4310, BTS, L501.2450 ####[facility] [address] [place], [address] MCH (RBC) [Entitic mass] 26.7 pg Low 27.0-32.0 [facility] Comment on above: Performed By: #### L 300.3900, L500.2500, L501.4020, L100.0100, L500.3400, L300.4310, BTS, L501.2450 ####[facility] [address] [place], [address] MCHC (RBC) [Mass/Vol] 31.5 g/dL Low 32-36 [facility] Comment on above: Performed By: #### L 300.3900, L500.2500, L501.4020, L100.0100, L500.3400, L300.4310, BTS, L501.2450 ####[facility] [address] [place], [address] MCV (RBC) [Entitic vol] 84.9 fL Normal 80-94 [facility] Comment on above: Performed By: #### L 300.3900, L500.2500, L501.4020, L100.0100, L500.3400, L300.4310, BTS, L501.2450 ####[facility] [address] [place], [address] Monocytes/100 WBC (Bld) 13.1 % High 0-10 [facility] Comment on above: Performed By: #### L 300.3900, L500.2500, L501.4020, L100.0100, L500.3400, L300.4310, BTS, L501.2450 ####[facility] [address] [place], [address] Neutrophils/100 WBC (Bld) 65.6 % Normal 47-70 [facility] Comment on above: Performed By: #### L 300.3900, L500.2500, L501.4020, L100.0100, L500.3400, L300.4310, BTS, L501.2450 ####[facility] [address] [place], [address] Nucleated RBC (Bld) [#/Vol] 0 10*3/uL Normal 0-5 [facility] Comment on above: Performed By: #### L 300.3900, L500.2500, L501.4020, L100.0100, L500.3400, L300.4310, BTS, L501.2450 ####[facility] [address] [place], [address] Platelet mean volume (Bld) [Entitic vol] 9.5 fL Normal 6.2-12.0 [facility] Comment on above: Performed By: #### L 300.3900, L500.2500, L501.4020, L100.0100, L500.3400, L300.4310, BTS, L501.2450 ####[facility] [address] [place], [address] Platelets (Bld) [#/Vol] 304 10*3/uL Normal 150-450 [facility] Comment on above: Performed By: #### L 300.3900, L500.2500, L501.4020, L100.0100, L500.3400, L300.4310, BTS, L501.2450 ####[facility] [address] [place], [address] RBC (Bld) [#/Vol] 2.51 10*6/uL Low 4.6-6.2 [facility] Comment on above: Performed By: #### L 300.3900, L500.2500, L501.4020, L100.0100, L500.3400, L300.4310, BTS, L501.2450 ####[facility] [address] [place], [address] RDW SD 40.7 fl Normal 35.1-43.9 [facility] Comment on above: Performed By: #### L 300.3900, L500.2500, L501.4020, L100.0100, L500.3400, L300.4310, BTS, L501.2450 ####[facility] [address] [place], [address] WBC (Bld) [#/Vol] 6.0 10*3/uL Normal 4.4-11.0 [facility] Comment on above: Performed By: #### L 300.3900, L500.2500, L501.4020, L100.0100, L500.3400, L300.4310, BTS, L501.2450 ####[facility] [address] [place], [address] Absolute Lymph 1.28 X10 3/uL Normal 0.83-4.51 [facility] Comment on above: Performed By: #### L 501.4020, L500.4050, L300.8000, L503.6620, L100.0100 ####[facility] [address] [place], [address] Absolute Neut 3.2 X10 3/uL Normal 2.0-7.7 [facility] Comment on above: Performed By: #### L 501.4020, L500.4050, L300.8000, L503.6620, L100.0100 ####[facility] [address] [place], [address] Basophils/100 WBC (Bld) 0.4 % Normal 0-1 [facility] Comment on above: Performed By: #### L 501.4020, L500.4050, L300.8000, L503.6620, L100.0100 ####[facility] [address] [place], [address] Eosinophils/100 WBC (Bld) 1.9 % Normal 0-5 [facility] Comment on above: Performed By: #### L 501.4020, L500.4050, L300.8000, L503.6620, L100.0100 ####[facility] [address] [place], [address] Erythrocyte distribution width (RBC) [Ratio] 13.4 % Normal 11.6-14.6 [facility] Comment on above: Performed By: #### L 501.4020, L500.4050, L300.8000, L503.6620, L100.0100 ####[facility] [address] [place], [address] Hematocrit (Bld) [Volume fraction] 23.9 % Low 40-54 [facility] Comment on above: Performed By: #### L 501.4020, L500.4050, L300.8000, L503.6620, L100.0100 ####[facility] [address] [place], [address] Hemoglobin (Bld) [Mass/Vol] 7.2 g/dL Low 13.0-16.5 [facility] Comment on above: Performed By: #### L 501.4020, L500.4050, L300.8000, L503.6620, L100.0100 ####[facility] [address], [address] IG% 0.400 Normal 0.0-0.9 [facility] Comment on above: Result Comment: IG% - Immature Granulocytes (promyelocytes, myelocytes andmetamyelocytes) > 1% indicates that a LEFT SHIFT is Present. Performed By: #### L 501.4020, L500.4050, L300.8000, L503.6620, L100.0100 ####[facility] [address], [address] Lymphocytes/100 WBC (Bld) 24.1 % Normal 19-41 [facility] Comment on above: Performed By: #### L 501.4020, L500.4050, L300.8000, L503.6620, L100.0100 ####[facility] [address] [place], [address] MCH (RBC) [Entitic mass] 26.2 pg Low 27.0-32.0 [facility] Comment on above: Performed By: #### L 501.4020, L500.4050, L300.8000, L503.6620, L100.0100 ####[facility] [address] [place], [address] MCHC (RBC) [Mass/Vol] 30.1 g/dL Low 32-36 [facility] Comment on above: Performed By: #### L 501.4020, L500.4050, L300.8000, L503.6620, L100.0100 ####[facility] [address] [place], [address] MCV (RBC) [Entitic vol] 86.9 fL Normal 80-94 [facility] Comment on above: Performed By: #### L 501.4020, L500.4050, L300.8000, L503.6620, L100.0100 ####[facility] [address] [place], [address] Monocytes/100 WBC (Bld) 13.6 % High 0-10 [facility] Comment on above: Performed By: #### L 501.4020, L500.4050, L300.8000, L503.6620, L100.0100 ####[facility] [address] [place], [address] Neutrophils/100 WBC (Bld) 59.6 % Normal 47-70 [facility] Comment on above: Performed By: #### L 501.4020, L500.4050, L300.8000, L503.6620, L100.0100 ####[facility] [address] [place], [address] Nucleated RBC (Bld) [#/Vol] 0 10*3/uL Normal 0-5 [facility] Comment on above: Performed By: #### L 501.4020, L500.4050, L300.8000, L503.6620, L100.0100 ####[facility] [address] [place], [address] Platelet mean volume (Bld) [Entitic vol] 9.8 fL Normal 6.2-12.0 [facility] Comment on above: Performed By: #### L 501.4020, L500.4050, L300.8000, L503.6620, L100.0100 ####[facility] [address] [place], [address] Platelets (Bld) [#/Vol] 321 10*3/uL Normal 150-450 [facility] Comment on above: Performed By: #### L 501.4020, L500.4050, L300.8000, L503.6620, L100.0100 ####[facility] [address] [place], [address] RBC (Bld) [#/Vol] 2.75 10*6/uL Low 4.6-6.2 [facility] Comment on above: Performed By: #### L 501.4020, L500.4050, L300.8000, L503.6620, L100.0100 ####[facility] [address] [place], [address] RDW SD 42.7 fl Normal 35.1-43.9 [facility] Comment on above: Performed By: #### L 501.4020, L500.4050, L300.8000, L503.6620, L100.0100 ####[facility] [address] [place], [address] WBC (Bld) [#/Vol] 5.3 10*3/uL Normal 4.4-11.0 [facility] Comment on above: Performed By: #### L 501.4020, L500.4050, L300.8000, L503.6620, L100.0100 ####[facility] [address] [place], [address] CTA Chst, Abd, Pel W and/or WOon 04-11-2024 CTA Chst, Abd, Pel W and/or WO Normal [facility] Comprehensive Metabolic Prof ilon 04-11-2024 Albumin [Mass/Vol] 3.5 g/dL Normal 3.2-5.0 [facility] Comment on above: Order Comment: 1 Performed By: #### L 501.4020, L500.4050, L300.8000, L503.6620, L100.0100 ####[facility] [address] [place], [address] Albumin/Globulin [Mass ratio] 1.0 {ratio} Normal 0.9-2.4 [facility] Comment on above: Order Comment: 1 Performed By: #### L 501.4020, L500.4050, L300.8000, L503.6620, L100.0100 ####[facility] [address] [place], [address] ALK P 89 U/L Normal 45-117 [facility] Comment on above: Order Comment: 1 Performed By: #### L 501.4020, L500.4050, L300.8000, L503.6620, L100.0100 ####[facility] [id number] [place], [address] ALT [Catalytic activity/Vol] 19 U/L Normal 16-61 [facility] Comment on above: Order Comment: 1 Performed By: #### L 501.4020, L500.4050, L300.8000, L503.6620, L100.0100 ####[facility] [address] [place], [address] AST [Catalytic activity/Vol] 19 U/L Normal 15-37 [facility] Comment on above: Order Comment: 1 Performed By: #### L 501.4020, L500.4050, L300.8000, L503.6620, L100.0100 ####[facility] [address] [place], [address] Bilirubin [Mass/Vol] 0.30 mg/dL Normal 0.20-1.00 [facility] Comment on above: Order Comment: 1 Result Comment: For patients on eltrombopag therapy, use of Dimension [facility] TBIL is not recommended. Performed By: #### L 501.4020, L500.4050, L300.8000, L503.6620, L100.0100 ####[facility] [address] [place], [address] BUN/CRE 13.2 RATIO Normal 10-20 [facility] Comment on above: Order Comment: 1 Performed By: #### L 501.4020, L500.4050, L300.8000, L503.6620, L100.0100 ####[facility] [address] [place], [address] CA,Total 9.2 mg/dL Normal 8.5-10.1 [facility] Comment on above: Order Comment: 1 Performed By: #### L 501.4020, L500.4050, L300.8000, L503.6620, L100.0100 ####[facility] [address] [place], [address] Chloride [Moles/Vol] 104 mmol/L Normal 98-107 [facility] Comment on above: Order Comment: 1 Performed By: #### L 501.4020, L500.4050, L300.8000, L503.6620, L100.0100 ####[facility] [address] [place], [address] CO2 [Moles/Vol] 26.0 mmol/L Normal 21.0-32.0 [facility] Comment on above: Order Comment: 1 Performed By: #### L 501.4020, L500.4050, L300.8000, L503.6620, L100.0100 ####[facility] [address] [place], [address] Creatinine [Mass/Vol] 1.14 mg/dL Normal 0.70-1.30 [facility] Comment on above: Order Comment: 1 Result Comment: The validity of the calculated GFR GFRAA in patients over70 years has not been determined. Clinical correlation isessential. Performed By: #### L 501.4020, L500.4050, L300.8000, L503.6620, L100.0100 ####[facility] [address] [place], [address] EST GFR - AA 80 mL/min Normal >60 [facility] Comment on above: Order Comment: 1 Result Comment: Afri can Swiss GFR Calc Performed By: #### L 501.4020, L500.4050, L300.8000, L503.6620, L100.0100 ####[facility] [address] [place], [address] GAP 6 Normal 5-15 [facility] Comment on above: Order Comment: 1 Performed By: #### L 501.4020, L500.4050, L300.8000, L503.6620, L100.0100 ####[facility] [address] [place], [address] GFR/1.73 sq M.predicted among non-blacks MDRD (S/P/Bld) [Vol rate/Area] 66 mL/min/{1.73_m2} Normal >60 [facility] Comment on above: Order Comment: 1 Result Comment: Non- GFR Calc Performed By: #### L 501.4020, L500.4050, L300.8000, L503.6620, L100.0100 ####[facility] [address] [place], [address] Globulin (S) [Mass/Vol] 3.4 g/dL Normal 2.2-4.2 [facility] Comment on above: Order Comment: 1 Performed By: #### L 501.4020, L500.4050, L300.8000, L503.6620, L100.0100 ####[facility] [address] [place], [address] Glucose [Mass/Vol] 108 mg/dL High 74-106 [facility] Comment on above: Order Comment: 1 Result Comment: Fast ing Glucose result from 100 to 125 mg/dLsuggests IMPAIRED HOMEOSTASIS per A.D.A. criteria. Performed By: #### L 501.4020, L500.4050, L300.8000, L503.6620, L100.0100 ####[facility] [address] [place], [address] Potassium [Moles/Vol] 3.9 mmol/L Normal 3.5-5.1 [facility] Comment on above: Order Comment: 1 Performed By: #### L 501.4020, L500.4050, L300.8000, L503.6620, L100.0100 ####[facility] [address] [place], [address] Sodium [Moles/Vol] 136 mmol/L Normal 136-145 [facility] Comment on above: Order Comment: 1 Performed By: #### L 501.4020, L500.4050, L300.8000, L503.6620, L100.0100 ####[facility] [address] [place], [address] T PROT 6.9 g/dL Normal 6.4-8.2 [facility] Comment on above: Order Comment: 1 Performed By: #### L 501.4020, L500.4050, L300.8000, L503.6620, L100.0100 ####[facility] [address] [place], [address] Urea nitrogen [Mass/Vol] 15 mg/dL Normal 7-18 [facility] Comment on above: Order Comment: 1 Performed By: #### L 501.4020, L500.4050, L300.8000, L503.6620, L100.0100 ####[facility] [address] [place], [address] D-Dimer Quantitative (DVT/PE )on 04-11-2024 D-DIMER QUANT 2.00 FEU/ug/m Invalid Interpretation Code 0.27-0.49 [facility] Comment on above: Result Comment: D-Di gita ELEVATED (>0.49): Additional studies and clinicalassessments are indicated to conclude diagnosis of:Deep Vein Thrombosis (DVT) or Pulmonary Embolism (PE)CRITICAL VALUE CALLED TO MARIELA OLSON04/11/24 Keon Bolanos.RESULTS READ BACK BY SAME. Performed By: #### L 501.4020, L500.4050, L300.8000, L503.6620, L100.0100 ####[facility] [address] [place], [address] Emergency Department Summary on 04-11-2024 Emergency Department Summary Normal [facility] H AND P Exam - Hospitaliston 04-11-2024 H&P Exam - Hospitalist Normal [facility] L501.4020on 04-11-2024 TROPONIN-I HS 124 pg/mL Invalid Interpretation Code 3.0-78.0 [facility] Comment on above: Order Comment: 'TROP ' Serial specimen #1, #2 or #3: 1 Result Comment: Plea se Note: New Test Units and Gender Specific Reference Ranges. For more information see Policy Stat Procedure [facility] High Sensitivity Troponin (TNIH) and attachments. Performed By: #### L 300.3900, L500.2500, L501.4020, L100.0100, L500.3400, L300.4310, BTS, L501.2450 ####[facility] [address] [place], [address] TROPONIN-I HS 123 pg/mL Invalid Interpretation Code 3.0-78.0 [facility] Comment on above: Order Comment: 1 Result Comment: CRIT ICAL VALUE CALLED TO MARIELA OLSON04/11/24 1822 Gudelia Ramosxler.RESULTS READ BACK BY SAME. Please Note: New Test Units and Gender Specific Reference Ranges. For more information see Policy Stat Procedure [facility] High Sensitivity Troponin (TNIH) and attachments. Performed By: #### L 501.4020, L500.4050, L300.8000, L503.6620, L100.0100 ####[facility] [address] [place], [place], [address] Lipaseon 04-11-2024 Lipase [Catalytic activity/Vol] 29 U/L Normal 13-75 [facility] Comment on above: Order Comment: 'TROP ' Serial specimen #1, #2 or #3: 1 Result Comment: Plea se note:LIPASE revised reference range effective 22.New Lipase methodology. Expected to produce lower valuesthan the previous assay method.NEW Reference Range: 13 - 75 U/L Performed By: #### L 300.3900, L500.2500, L501.4020, L100.0100, L500.3400, L300.4310, BTS, L501.2450 ####[facility] [address] [place], [address] Liver Profileon 04-11-2024 Albumin [Mass/Vol] 3.4 g/dL Normal 3.2-5.0 [facility] Comment on above: Order Comment: 'TROP ' Serial specimen #1, #2 or #3: 1 Performed By: #### L 300.3900, L500.2500, L501.4020, L100.0100, L500.3400, L300.4310, BTS, L501.2450 ####[facility] [address] [place], [address] ALK P 87 U/L Normal 45-117 [facility] Comment on above: Order Comment: 'TROP ' Serial specimen #1, #2 or #3: 1 Performed By: #### L 300.3900, L500.2500, L501.4020, L100.0100, L500.3400, L300.4310, BTS, L501.2450 ####[facility] [address] [place], [address] ALT [Catalytic activity/Vol] 18 U/L Normal 16-61 [facility] Comment on above: Order Comment: 'TROP ' Serial specimen #1, #2 or #3: 1 Performed By: #### L 300.3900, L500.2500, L501.4020, L100.0100, L500.3400, L300.4310, BTS, L501.2450 ####[facility] [address] [place], [address] AST [Catalytic activity/Vol] 15 U/L Normal 15-37 [facility] Comment on above: Order Comment: 'TROP ' Serial specimen #1, #2 or #3: 1 Performed By: #### L 300.3900, L500.2500, L501.4020, L100.0100, L500.3400, L300.4310, BTS, L501.2450 ####[facility] [address] [place], [address] Bilirubin [Mass/Vol] 0.30 mg/dL Normal 0.20-1.00 [facility] Comment on above: Order Comment: 'TROP ' Serial specimen #1, #2 or #3: 1 Result Comment: For patients on eltrombopag therapy, use of Dimension [place] TBIL is not recommended. Performed By: #### L 300.3900, L500.2500, L501.4020, L100.0100, L500.3400, L300.4310, BTS, L501.2450 ####[facility] [address] [place], [address] Bilirubin.direct [Mass/Vol] 0.09 mg/dL Normal 0.00-0.30 [facility] Comment on above: Order Comment: 'TROP ' Serial specimen #1, #2 or #3: 1 Performed By: #### L 300.3900, L500.2500, L501.4020, L100.0100, L500.3400, L300.4310, BTS, L501.2450 ####[facility] [address] [place], [address] Globulin (S) [Mass/Vol] 3.2 g/dL Normal 2.2-4.2 [facility] Comment on above: Order Comment: 'TROP ' Serial specimen #1, #2 or #3: 1 Performed By: #### L 300.3900, L500.2500, L501.4020, L100.0100, L500.3400, L300.4310, BTS, L501.2450 ####[facility] [address] [place], [address] T PROT 6.6 g/dL Normal 6.4-8.2 [facility] Comment on above: Order Comment: 'TROP ' Serial specimen #1, #2 or #3: 1 Performed By: #### L 300.3900, L500.2500, L501.4020, L100.0100, L500.3400, L300.4310, BTS, L501.2450 ####[facility] [address] [place], [address] Partial Thromboplast Timeon 04-11-2024 aPTT Coag (Bld) [Time] 27.9 s Normal 24.1-36.2 [facility] Comment on above: Performed By: #### L 300.3900, L500.2500, L501.4020, L100.0100, L500.3400, L300.4310, BTS, L501.2450 ####[facility] [address] [place], [address] Prothrombin Time w/INRon INR Coag (PPP) [Relative time] 1.1 {INR} Normal [facility] Comment on above: Performed By: #### L 300.3900, L500.2500, L501.4020, L100.0100, L500.3400, L300.4310, BTS, L501.2450 ####[facility] [address] [place], [address] PT Coag (PPP) [Time] 13.8 s Normal 11.7-14.9 [facility] Comment on above: Performed By: #### L 300.3900, L500.2500, L501.4020, L100.0100, L500.3400, L300.4310, BTS, L501.2450 ####[facility] [address] [place], [address] Type AND Screenon 04-11-2024 Ab SCREEN GEL Negative Normal [facility] Comment on above: Order Comment: A Performed By: #### L 300.3900, L500.2500, L501.4020, L100.0100, L500.3400, L300.4310, BTS, L501.2450 ####[facility] [address] [place], [address] ABO and Rh group Nom (Bld) Blood group O Rh(D) positive Normal [facility] Comment on above: Order Comment: A Performed By: #### L 300.3900, L500.2500, L501.4020, L100.0100, L500.3400, L300.4310, BTS, L501.2450 ####[facility] [address] [place], [address] MR/BMS.BVSon 02-15-2024 MR/BMS.BVS Normal [facility] CREATININE FINGERSTICKon CREATININE WB < 1.0 Normal 0.70-1.30 [facility] Comment on above: Performed By: #### L 9100.0200 ####[facility] [address] [place], [address] EGFR WB > 60.0000 Normal >60 [facility] Comment on above: Performed By: #### L 9100.0200 ####[facility] [address] [place], [address] CTA Abd w/Runoff W/WO Contra ston 02-03-2024 CTA Abd w/Runoff W/WO Contrast Normal [facility] Absolute lymphocyte countOrd ered By: Stevie Vela on 12-11-2023 Lymphocytes Auto (Unsp spec) [#/Vol] 1.38 10*3/uL 0.83-4.51 [facility] Automated lymphocyte count a s percentage of total leukocytesOrdered By: Stevie Vela on 12-11-2023 Lymphocytes/100 WBC Auto (Unsp spec) 23.2 % 19-41 [facility] Basophil percentageOrdered B y: Stevie Vela on 12-11-2023 Basophils/100 WBC (Bld) 0.5 % 0-1 [facility] Chloride [Moles/Vol] 105 mmol/L 98-107 [facility] Eosinophils/100 WBC (Bld) 2.2 % 0-5 [facility] Glucose [Mass/Vol] 107 mg/dL 74-106 [facility] Comment on above: Fasting Glucose resu lt from 100 to 125 mg/dL suggests IMPAIRED HOMEOSTASIS per A.D.A. criteria. Hemoglobin (Bld) [Mass/Vol] 11.7 g/dL 13.0-16.5 [facility] Monocytes/100 WBC (Bld) 9.4 % 0-10 [facility] Neutrophils (Bld) [#/Vol] 3.8 10*3/uL 2.0-7.7 [facility] Neutrophils/100 WBC (Bld) 64.4 % 47-70 [facility] Potassium [Moles/Vol] 4.1 mmol/L 3.5-5.1 [facility] Sodium [Moles/Vol] 138 mmol/L 136-145 [facility] WBC (Bld) [#/Vol] 5.9 10*3/uL 4.4-11.0 [facility] Determination of erythrocyte mean corpuscular volume (MCV)Ordered By: Stevie Vela on 12-11-2023 MCV (RBC) [Entitic vol] 90.7 fL 80-94 [facility] Erythrocyte distribution wid th ratioOrdered By: Stevie Vela on 12-11-2023 Erythrocyte distribution width (RBC) [Ratio] 12.8 % 11.6-14.6 [facility] Erythrocyte distribution wid th standard deviationOrdered By: Stevie Vela on 12-11-2023 Erythrocyte distribution width (RBC) [Entitic vol] 41.6 fL 35.1-43.9 [facility] Hematocrit Auto (Bld) [Volum e fraction]Ordered By: Stevie Vela on 12-11-2023 Hematocrit (Bld) [Volume fraction] 35.1 % 40-54 [facility] Immature granulocytes/100 WB C Auto (Bld)Ordered By: Stevie Vela on 12-11-2023 Immature granulocytes/100 WBC (Bld) 0.300 % 0.0-0.9 [facility] Comment on above: IG% - Immature Granu locytes (promyelocytes, myelocytes and metamyelocytes) > 1% indicates that a LEFT SHIFT is Present. Laboratory - Chemistry and C hemistry - challengeOrdered By: Stevie Vela on 12-11-2023 CO2 [Moles/Vol] 27.0 mmol/L 21.0-32.0 [facility] Urea nitrogen/Creatinine [Mass ratio] 20.3 mg/mg 10-20 [facility] Laboratory - Hematology and Cell countsOrdered By: Stevie Vela on 12-11-2023 MCH (RBC) [Entitic mass] 30.2 pg 27.0-32.0 [facility] MCHC (RBC) [Mass/Vol] 33.3 g/dL 32-36 [facility] Nucleated RBC/100 WBC (Bld) [Ratio] 0 % 0-5 [facility] Platelet mean volume (Bld) [Entitic vol] 9.8 fL 6.2-12.0 [facility] Platelets (Bld) [#/Vol] 233 10*3/uL 150-450 [facility] No Panel InformationOrdered By: Stevie Vela on 12-11-2023 Estimated Creatinine Clearance Calc 54.39 ml/min [facility] Estimated GFR (MDRD) Amer 76 mL/min >60 [facility] Comment on above: GFR Calc Estimated GFR (MDRD) Non-Af Amer 63 mL/min >60 [facility] Comment on above: Non- GFR Calc Troponin I High Sensitivity 77 pg/mL 3.0-78.0 [facility] Comment on above: Please Note: New Wendy t Units and Gender Specific Reference Ranges. For more information see Policy Stat Procedure [facility] High Sensitivity Troponin (TNIH) and attachments. RBC Auto (Bld) [#/Vol]Ordere d By: Stevie Vela on 12-11-2023 RBC (Bld) [#/Vol] 3.87 10*6/uL 4.6-6.2 [facility] Serum or plasma calcium shagufta urement (mass/volume)Ordered By: Stevie Vela on 12-11-2023 Calcium [Mass/Vol] 8.8 mg/dL 8.5-10.1 [facility] Serum or plasma creatinine m easurement (mass/volume)Ordered By: Stevie Vela on 12-11-2023 Creatinine [Mass/Vol] 1.18 mg/dL 0.70-1.30 [facility] Comment on above: The validity of the calculated GFR & GFRAA in patients over 70 years has not been determined. Clinical correlation is essential. Serum or plasma urea nitroge n measurement (mass/volume)Ordered By: Stevie Vela on 12-11-2023 Urea nitrogen [Mass/Vol] 24 mg/dL 7-18 [facility] Thin prep Papanicolaou smear with manual screeningOrdered By: Stevie Vela on 12-11-2023 Thin prep Papanicolaou smear with manual screening 6 -15 [facility] Basophil percentageOrdered B y: Neville Islas on 08-22-2023 Testosterone [Mass/Vol] 374 ng/dL 264-916 [facility] Comment on above: Adult male reference interval is based on a population ofhealthy nonobese males (BMI <30) between 19 and 39 yearsold. michelle Jordan.al. JCEM 2017,102;0445-6356. PMID:[id number]. Free testosterone percentage Ordered By: Neville Islas on 08-22-2023 Testosterone Free/Testosterone.tota l [Mass fraction] 1.85 % 1.50-4.20 [facility] Laboratory - Chemistry and C hemistry - challengeOrdered By: Neville Islas on 08-22-2023 Prolactin IA Qn 11.4 ng/mL [facility] Comment on above: NORMAL REFERENCE RAN GES FEMALE NON- 2.2 - 30.3 ng/mL 8.1 - 347.6 ng/mL POST-MENOPAUSAL 0.7 - 31.5 ng/mL MALE 2.5 - 17.4 ng/mL Transferrin [Mass/Vol] 250 mg/dL 177-329 [facility] Comment on above: Performed at: - [address] [id number] Director: Jian Paredes PhD, Phone: [phone] at: [facility] [id number] Director: Tejal Dumas MD, Phone: [phone] Serum or plasma testosterone free measurement (mass/volume)Ordered By: Neville Islas on 08-22-2023 Testosterone Free [Mass/Vol] 6.92 ng/dL 5.00-21.00 [facility] Serum or plasma thyroid stim ulating hormone (TSH) measurement (units/volume)Ordered By: Neville Islas on 08-22-2023 TSH Qn 4.59 uIU/mL 0.358-3.74 [facility] Absolute lymphocyte countOrd ered By: Darrel Sanders on 08-16-2023 Lymphocytes Auto (Unsp spec) [#/Vol] 2.04 10*3/uL 0.83-4.51 [facility] Basophil percentageOrdered B y: Darrel Sanders on 08-16-2023 Basophil percentage 3.1 mg/dL 2.5-4.9 [facility] Basophils/100 WBC (Bld) 0.3 % 0-1 [facility] Bilirubin [Mass/Vol] 0.80 mg/dL 0.20-1.00 [facility] Comment on above: For patients on eltr ombopag therapy, use of Dimension [facility] TBIL is not recommended. Chloride [Moles/Vol] 105 mmol/L 98-107 [facility] Cholesterol [Mass/Vol] 203 mg/dL <200 [facility] Comment on above: <200 mg/dL Desirable 200-240 mg/dL Borderline >240 mg/dL High Risk Eosinophils/100 WBC (Bld) 1.9 % 0-5 [facility] Glucose [Mass/Vol] 91 mg/dL 74-106 [facility] Neutrophils (Bld) [#/Vol] 3.5 10*3/uL 2.0-7.7 [facility] Neutrophils/100 WBC (Bld) 56.6 % 47-70 [facility] Potassium [Moles/Vol] 3.7 mmol/L 3.5-5.1 [facility] Protein [Mass/Vol] 7.3 g/dL 6.4-8.2 [facility] Sodium [Moles/Vol] 137 mmol/L 136-145 [facility] Triglyceride [Mass/Vol] 105 mg/dL <199 [facility] Comment on above: The drugs N-Acetylcy steine and Metamizole may falsely depress this assay.Serum Triglycerides Reference Interval Normal <150 mg/dL Borderline high 150 - 199 mg/dL High 200 - 499 mg/dL Very High > or = 500 mg/dL WBC (Bld) [#/Vol] 6.2 10*3/uL 4.4-11.0 [facility] Blood erythrocytes count (nu mber/volume)Ordered By: Darrel Sanders on 08-16-2023 RBC (Bld) [#/Vol] 4.25 10*6/uL 4.6-6.2 [facility] Blood hemoglobin measurement (mass/volume)Ordered By: Darrel Sanders on 08-16-2023 Hemoglobin (Bld) [Mass/Vol] 12.7 g/dL 13.0-16.5 [facility] Blood lymphocytes/100 leukoc ytesOrdered By: Darrel Sanders on 08-16-2023 Lymphocytes/100 WBC (Bld) 32.7 % 19-41 [facility] Blood monocytes/100 leukocyt esOrdered By: Darrel Sanders on 08-16-2023 Monocytes/100 WBC (Bld) 8.3 % 0-10 [facility] Blood platelet mean volumeOr dered By: Darrel Sanders on 08-16-2023 Platelet mean volume (Bld) [Entitic vol] 9.9 fL 6.2-12.0 [facility] Determination of erythrocyte mean corpuscular volume (MCV)Ordered By: Darrel Sanders on 08-16-2023 MCV (RBC) [Entitic vol] 89.2 fL 80-94 [facility] Hematocrit Auto (Bld) [Volum e fraction]Ordered By: Darrel Sanders on 08-16-2023 Hematocrit (Bld) [Volume fraction] 37.9 % 40-54 [facility] Laboratory - Chemistry and C hemistry - challengeOrdered By: Darrel Sanders on 08-16-2023 ALP [Catalytic activity/Vol] 87 U/L 45-117 [facility] ALT [Catalytic activity/Vol] 28 U/L 16-61 [facility] CO2 [Moles/Vol] 26.0 mmol/L 21.0-32.0 [facility] Globulin (S) [Mass/Vol] 3.5 g/dL 2.2-4.2 [facility] Magnesium [Mass/Vol] 2.2 mg/dL 1.6-2.6 [facility] Urea nitrogen/Creatinine [Mass ratio] 18.6 mg/mg 10-20 [facility] Laboratory - Hematology and Cell countsOrdered By: Darrel Sanders on 08-16-2023 Erythrocyte distribution width (RBC) [Entitic vol] 43.4 fL 35.1-43.9 [facility] Erythrocyte distribution width (RBC) [Ratio] 13.3 % 11.6-14.6 [facility] Immature granulocytes/100 WBC (Bld) 0.200 % 0.0-0.9 [facility] Comment on above: IG% - Immature Granu locytes (promyelocytes, myelocytes and metamyelocytes) > 1% indicates that a LEFT SHIFT is Present. MCH (RBC) [Entitic mass] 29.9 pg 27.0-32.0 [facility] Nucleated RBC/100 WBC (Bld) [Ratio] 0 % 0-5 [facility] MCHC Auto (RBC) [Mass/Vol]Or dered By: Darrel Sanders on 08-16-2023 MCHC (RBC) [Mass/Vol] 33.5 g/dL 32-36 [facility] No Panel InformationOrdered By: Darrel Sanders on 08-16-2023 Estimated Creatinine Clearance Calc 58.72 ml/min [facility] Estimated GFR (MDRD) Amer 91 mL/min >60 [facility] Comment on above: GFR Calc Estimated GFR (MDRD) Non-Af Amer 75 mL/min >60 [facility] Comment on above: Non- GFR Calc D-Dimer Quantitative (PE/DVT) 0.79 FEU/ug/m 0.27-0.49 [facility] Comment on above: D-Dimer ELEVATED (>0 .49): Additional studies and clinicalassessments are indicated to conclude diagnosis of:Deep Vein Thrombosis (DVT) or Pulmonary Embolism (PE)CRITICAL VALUE VERIFIED. CALLED TO [id number]/24 Nannette Cardenas.RESULTS READ BACK BY SAME. Troponin I High Sensitivity 96 pg/mL 3.0-78.0 [facility] Comment on above: Please Note: New Wendy t Units and Gender Specific Reference Ranges. For more information see Policy Stat Procedure [facility] High Sensitivity Troponin (TNIH) and attachments. Platelets bldOrdered By: Esdras Sanders on 08-16-2023 Platelets (Bld) [#/Vol] 250 10*3/uL 150-450 [facility] Serum or plasma albumin shagufta urement (mass/volume)Ordered By: Darrel Sanders on 08-16-2023 Albumin [Mass/Vol] 3.8 g/dL 3.2-5.0 [facility] Serum or plasma albumin/glob ulin mass ratioOrdered By: Darrel Sanders on 08-16-2023 Albumin/Globulin [Mass ratio] 1.1 {ratio} 0.9-2.4 [facility] Serum or plasma calcium shagufta urement (mass/volume)Ordered By: Darrel Sanders on 08-16-2023 Calcium [Mass/Vol] 9.4 mg/dL 8.5-10.1 [facility] Serum or plasma cholesterol in HDL measurement (mass/volume)Ordered By: Darrel Sanders on 08-16-2023 Cholesterol in HDL [Mass/Vol] 59 mg/dL >40 [facility] Comment on above: The drugs N-Acetylcy steine and Metamizole may falsely depress this assay. Reference Range HDL <40 mg/dL Low HDL Cholesterol HDL >or= 60 mg/dL High HDL Cholesterol Serum or plasma cholesterol in VLDL measurement (mass/volume)Ordered By: Darrel Sanders on 08-16-2023 Cholesterol in VLDL [Mass/Vol] 21 mg/dL 5-40 [facility] Serum or plasma creatinine m easurement (mass/volume)Ordered By: Darrel Sanders on 08-16-2023 Creatinine [Mass/Vol] 1.02 mg/dL 0.70-1.30 [facility] Comment on above: The validity of the calculated GFR & GFRAA in patients over 70 years has not been determined. Clinical correlation is essential. Serum or plasma low density lipoprotein (LDL) cholesterol measurement (mass/volume)Ordered By: Darrel Sanders on 08-16-2023 Cholesterol in LDL [Mass/Vol] 123 mg/dL 0-130 [facility] Serum or plasma thyroid stim ulating hormone (TSH) measurement (units/volume)Ordered By: Lucy Polanco on 08-16-2023 TSH Qn 4.27 uIU/mL 0.358-3.74 [facility] Serum or plasma urea nitroge n measurement (mass/volume)Ordered By: Darrel Sanders on 08-16-2023 Urea nitrogen [Mass/Vol] 19 mg/dL 7-18 [facility] Thin prep Papanicolaou smear with manual screeningOrdered By: Darrel Sanders on 08-16-2023 Thin prep Papanicolaou smear with manual screening 25 U/L 15-37 [facility] Thin prep Papanicolaou smear with manual screening 6 5-15 [facility] Thin prep Papanicolaou smear with manual screeningOrdered By: Lucy Polanco on 08-16-2023 Thin prep Papanicolaou smear with manual screening 0.97 ng/dL 0.76-1.46 [facility] Absolute lymphocyte countOrd ered By: Faustina Garrison on 08-15-2023 Lymphocytes Auto (Unsp spec) [#/Vol] 1.56 10*3/uL 0.83-4.51 [facility] Basophil percentageOrdered B y: Faustina Garrison on 08-15-2023 Basophil percentage 0 SEEN /hpf 0-5 [facility] Basophils/100 WBC (Bld) 0.5 % 0-1 [facility] Bilirubin [Mass/Vol] 0.60 mg/dL 0.20-1.00 [facility] Comment on above: For patients on eltr ombopag therapy, use of Dimension [place] TBIL is not recommended. Chloride [Moles/Vol] 100 mmol/L 98-107 [facility] Eosinophils/100 WBC (Bld) 2.9 % 0-5 [facility] Glucose [Mass/Vol] 99 mg/dL 74-106 [facility] Neutrophils (Bld) [#/Vol] 3.9 10*3/uL 2.0-7.7 [facility] Neutrophils/100 WBC (Bld) 62.4 % 47-70 [facility] Potassium [Moles/Vol] 4.7 mmol/L 3.5-5.1 [facility] Comment on above: Slight Hemolysis, Re sult may be falsely increased. Protein [Mass/Vol] 7.6 g/dL 6.4-8.2 [facility] Sodium [Moles/Vol] 136 mmol/L 136-145 [facility] WBC (Bld) [#/Vol] 6.2 10*3/uL 4.4-11.0 [facility] Bilirubin Test strip Ql (U)O rdered By: Faustina Garrison on 08-15-2023 Bilirubin Ql (U) Negative Negative [facility] Blood erythrocytes count (nu mber/volume)Ordered By: Faustina Garrison on 08-15-2023 RBC (Bld) [#/Vol] 4.26 10*6/uL 4.6-6.2 [facility] Blood hemoglobin measurement (mass/volume)Ordered By: Faustina Garrison on 08-15-2023 Hemoglobin (Bld) [Mass/Vol] 13.2 g/dL 13.0-16.5 [facility] Blood lymphocytes/100 leukoc ytesOrdered By: Faustina Garrison on 08-15-2023 Lymphocytes/100 WBC (Bld) 25.1 % 19-41 [facility] Blood monocytes/100 leukocyt esOrdered By: Faustina Garrison on 08-15-2023 Monocytes/100 WBC (Bld) 8.8 % 0-10 [facility] Blood platelet mean volumeOr dered By: Faustina Garrison on 08-15-2023 Platelet mean volume (Bld) [Entitic vol] 9.9 fL 6.2-12.0 [facility] Determination of erythrocyte mean corpuscular volume (MCV)Ordered By: Faustina Garrison on 08-15-2023 MCV (RBC) [Entitic vol] 90.6 fL 80-94 [facility] Hematocrit Auto (Bld) [Volum e fraction]Ordered By: Faustina Garrison on 08-15-2023 Hematocrit (Bld) [Volume fraction] 38.6 % 40-54 [facility] Ketones Test strip Ql (U)Ord ered By: Faustina Garrison on 08-15-2023 Ketones Ql (U) Negative Negative [facility] Laboratory - Chemistry and C hemistry - challengeOrdered By: Faustina Garrison on 08-15-2023 ALP [Catalytic activity/Vol] 97 U/L 45-117 [facility] ALT [Catalytic activity/Vol] 31 U/L 16-61 [facility] CO2 [Moles/Vol] 28.0 mmol/L 21.0-32.0 [facility] Globulin (S) [Mass/Vol] 3.7 g/dL 2.2-4.2 [facility] Magnesium [Mass/Vol] 2.0 mg/dL 1.6-2.6 [facility] Comment on above: Slight Hemolysis, Re sult may be falsely increased. Urea nitrogen/Creatinine [Mass ratio] 18.0 mg/mg 10-20 [facility] Laboratory - Hematology and Cell countsOrdered By: Faustina Garrison on 08-15-2023 Erythrocyte distribution width (RBC) [Entitic vol] 43.6 fL 35.1-43.9 [facility] Erythrocyte distribution width (RBC) [Ratio] 13.2 % 11.6-14.6 [facility] Immature granulocytes/100 WBC (Bld) 0.300 % 0.0-0.9 [facility] Comment on above: IG% - Immature Granu locytes (promyelocytes, myelocytes and metamyelocytes) > 1% indicates that a LEFT SHIFT is Present. MCH (RBC) [Entitic mass] 31.0 pg 27.0-32.0 [facility] Nucleated RBC/100 WBC (Bld) [Ratio] 0 % 0-5 [facility] MCHC Auto (RBC) [Mass/Vol]Or dered By: Faustina Garrison on 08-15-2023 MCHC (RBC) [Mass/Vol] 34.2 g/dL 32-36 [facility] Mucus LM Ql (Urine sed)Order ed By: Faustina Garrison on 08-15-2023 Mucus Ql (Urine sed) 0 SEEN /hpf [facility] Nitrite Test strip Ql (U)Ord ered By: Faustina Garrison on 08-15-2023 Nitrite Ql (U) Negative Negative [facility] No Panel InformationOrdered By: Faustina Garrison on 08-15-2023 Troponin I High Sensitivity 85 pg/mL 3.0-78.0 [facility] Comment on above: Please Note: New Wendy t Units and Gender Specific Reference Ranges. For more information see Policy Stat Procedure [place] High Sensitivity Troponin (TNIH) and attachments. Estimated Creatinine Clearance Calc 52.21 ml/min [facility] Estimated GFR (MDRD) Amer 82 mL/min >60 [facility] Comment on above: GFR Calc Estimated GFR (MDRD) Non-Af Amer 68 mL/min >60 [facility] Comment on above: Non- GFR Calc Platelets bldOrdered By: Natali Garrison on 08-15-2023 Platelets (Bld) [#/Vol] 242 10*3/uL 150-450 [facility] Protein Test strip Ql (U)Ord ered By: Faustina Garrison on 08-15-2023 Protein Ql (U) Negative Negative [facility] Serum or plasma albumin shagufta urement (mass/volume)Ordered By: Faustina Garrison on 08-15-2023 Albumin [Mass/Vol] 3.9 g/dL 3.2-5.0 [facility] Serum or plasma albumin/glob ulin mass ratioOrdered By: Faustina Garrison on 08-15-2023 Albumin/Globulin [Mass ratio] 1.1 {ratio} 0.9-2.4 [facility] Serum or plasma calcium shagufta urement (mass/volume)Ordered By: Faustina Garrison on 08-15-2023 Calcium [Mass/Vol] 9.3 mg/dL 8.5-10.1 [facility] Serum or plasma creatinine m easurement (mass/volume)Ordered By: Faustina Garrison on 08-15-2023 Creatinine [Mass/Vol] 1.11 mg/dL 0.70-1.30 [facility] Comment on above: The validity of the calculated GFR & GFRAA in patients over 70 years has not been determined. Clinical correlation is essential. Serum or plasma urea nitroge n measurement (mass/volume)Ordered By: Faustina Garrison on 08-15-2023 Urea nitrogen [Mass/Vol] 20 mg/dL 7-18 [facility] Squamous epithelial cells de tection in urine sediment by light microscopyOrdered By: Faustina Garrison on 08-15-2023 Epithelial cells.squamous LM Ql (Urine sed) 0-5 SEEN /hpf 0-5 [facility] Thin prep Papanicolaou smear with manual screeningOrdered By: Faustina Garrison on 08-15-2023 Thin prep Papanicolaou smear with manual screening 29 U/L 15-37 [facility] Comment on above: Slight Hemolysis, Re sult may be falsely increased. Thin prep Papanicolaou smear with manual screening 8 5-15 [facility] Urine blood detectionOrdered By: Faustina Garrison on 08-15-2023 RBC Ql (U) Negative Negative [facility] RBC Ql (U) 0 SEEN /hpf 0-5 [facility] Urine clarityOrdered By: Natali Garrison on 08-15-2023 Clarity (U) Sl. Cloudy Clear [facility] Urine color determinationOrd ered By: Faustina Garrison on 08-15-2023 Color (U) Yellow Yellow [facility] Urine glucose detectionOrder ed By: Faustina Garrison on 08-15-2023 Glucose Ql (U) Normal mg/dl Normal [facility] Urine leukocyte esterase det ection by dipstickOrdered By: Faustina Garrison on 08-15-2023 Leukocyte esterase Test strip Ql (U) Negative Negative [facility] Urine pHOrdered By: Faustina bartlett on 08-15-2023 pH (U) 8.0 [pH] 5.0 - 8.0 [facility] Urine sediment bacteria coun t by microscopy (number/high power field)Ordered By: Faustina Garrison on 08-15-2023 Bacteria LM.HPF (Urine sed) [#/Area] 0 /[HPF] None Seen [facility] Urine specific gravity measu rementOrdered By: Faustina Garrison on 08-15-2023 Specific gravity (U) [Rel density] 1.010 1.002-1.030 [facility] Urobilinogen Auto test strip Ql (U)Ordered By: Faustina Garrison on 08-15-2023 Urobilinogen Ql (U) Normal mg/dl Normal [facility] Absolute lymphocyte countOrd ered By: Mariela Olson on 01-25-2023 Lymphocytes Auto (Unsp spec) [#/Vol] 2.09 10*3/uL 0.83-4.51 [facility] Basophil percentageOrdered B y: Mariela Olson on 01-25-2023 Basophils/100 WBC (Bld) 0.6 % 0-1 [facility] Chloride [Moles/Vol] 106 mmol/L 98-107 [facility] Eosinophils/100 WBC (Bld) 6.0 % 0-5 [facility] Glucose [Mass/Vol] 98 mg/dL 74-106 [facility] Neutrophils (Bld) [#/Vol] 3.6 10*3/uL 2.0-7.7 [facility] Neutrophils/100 WBC (Bld) 52.4 % 47-70 [facility] Potassium [Moles/Vol] 4.2 mmol/L 3.5-5.1 [facility] Sodium [Moles/Vol] 138 mmol/L 136-145 [facility] WBC (Bld) [#/Vol] 6.9 10*3/uL 4.4-11.0 [facility] Blood erythrocytes count (nu mber/volume)Ordered By: Mariela Olson on 01-25-2023 RBC (Bld) [#/Vol] 4.64 10*6/uL 4.6-6.2 [facility] Blood hemoglobin measurement (mass/volume)Ordered By: Mariela Olson on 01-25-2023 Hemoglobin (Bld) [Mass/Vol] 14.2 g/dL 13.0-16.5 [facility] Blood lymphocytes/100 leukoc ytesOrdered By: Mariela Olson on 01-25-2023 Lymphocytes/100 WBC (Bld) 30.4 % 19-41 [facility] Blood monocytes/100 leukocyt esOrdered By: Mariela Olson on 01-25-2023 Monocytes/100 WBC (Bld) 10.3 % 0-10 [facility] Blood platelet mean volumeOr dered By: Mariela Olson on 01-25-2023 Platelet mean volume (Bld) [Entitic vol] 10.0 fL 6.2-12.0 [facility] Determination of erythrocyte mean corpuscular volume (MCV)Ordered By: Mariela Olson on 01-25-2023 MCV (RBC) [Entitic vol] 92.7 fL 80-94 [facility] Hematocrit Auto (Bld) [Volum e fraction]Ordered By: Mariela Olson on 01-25-2023 Hematocrit (Bld) [Volume fraction] 43.0 % 40-54 [facility] Laboratory - Chemistry and C hemistry - challengeOrdered By: Mariela Olson on 01-25-2023 CO2 [Moles/Vol] 28.0 mmol/L 21.0-32.0 [facility] Magnesium [Mass/Vol] 2.3 mg/dL 1.6-2.6 [facility] Urea nitrogen/Creatinine [Mass ratio] 17.7 mg/mg 10-20 [facility] Laboratory - Hematology and Cell countsOrdered By: Mariela Olson on 01-25-2023 Erythrocyte distribution width (RBC) [Entitic vol] 43.2 fL 35.1-43.9 [facility] Erythrocyte distribution width (RBC) [Ratio] 12.7 % 11.6-14.6 [facility] Immature granulocytes/100 WBC (Bld) 0.300 % 0.0-0.9 [facility] Comment on above: IG% - Immature Granu locytes (promyelocytes, myelocytes and metamyelocytes) > 1% indicates that a LEFT SHIFT is Present. MCH (RBC) [Entitic mass] 30.6 pg 27.0-32.0 [facility] Nucleated RBC/100 WBC (Bld) [Ratio] 0 % 0-5 [facility] MCHC Auto (RBC) [Mass/Vol]Or dered By: Mariela Olson on 01-25-2023 MCHC (RBC) [Mass/Vol] 33.0 g/dL 32-36 [facility] No Panel InformationOrdered By: Mariela Olson on 01-25-2023 Estimated GFR (MDRD) Amer 72 mL/min >60 [facility] Comment on above: GFR Calc Estimated GFR (MDRD) Non-Af Amer 60 mL/min >60 [facility] Comment on above: Non- GFR Calc Platelets bldOrdered By: Hortencia Olson on 01-25-2023 Platelets (Bld) [#/Vol] 242 10*3/uL 150-450 [facility] Serum or plasma calcium shagufta urement (mass/volume)Ordered By: Mariela Olson on 01-25-2023 Calcium [Mass/Vol] 9.3 mg/dL 8.5-10.1 [facility] Serum or plasma creatinine m easurement (mass/volume)Ordered By: Mariela Olson on 01-25-2023 Creatinine [Mass/Vol] 1.24 mg/dL 0.70-1.30 [facility] Comment on above: The validity of the calculated GFR & GFRAA in patients over 70 years has not been determined. Clinical correlation is essential. Serum or plasma urea nitroge n measurement (mass/volume)Ordered By: Mariela Olson on 01-25-2023 Urea nitrogen [Mass/Vol] 22 mg/dL 7 [facility] Thin prep Papanicolaou smear with manual screeningOrdered By: Mariela Olson on 01-25-2023 Thin prep Papanicolaou smear with manual screening 4 12-13 [facility] Vital Signs Date Time Vital Sign Value Performing Clinician Facility 01-14-2025 09:01-0400 Body height 170.18 cm Mariela Olson [employer] Work Phone: [facility] 01-14-2025 09:01-0400 Body mass index (BMI) [Ratio] 23.5 kg/m2 Mariela Shahram [employer] Work Phone: [facility] 01-14-2025 09:01-0400 Body weight 68.03 kg Mariela Olson [employer] Work Phone: [facility] 01-09-2025 15:28-0400 Body height 170.18 cm Mariela Shahram [employer] Work Phone: [facility] 01-09-2025 15:28-0400 Body mass index (BMI) [Ratio] 24.1 kg/m2 Mariela Shahram [employer] Work Phone: [facility] 01-09-2025 15:28-0400 Body temperature 98.4 [degF] Mariela Olson [employer] Work Phone: [facility] 01-09-2025 15:28-0400 Body weight 69.9 kg Mariela Olson [employer] Work Phone: [facility] 01-09-2025 15:28-0400 Diastolic blood pressure 74 mm[Hg] Mariela Shahram [employer] Work Phone: [facility] 01-09-2025 15:28-0400 Heart rate 62 /min Mariela Shahram [employer] Work Phone: [facility] 01-09-2025 15:28-0400 SaO2% (BldA) [Mass fraction] 97 % Mariela Shahram [employer] Work Phone: [facility] 01-09-2025 15:28-0400 Systolic blood pressure 146 mm[Hg] Mariela Shahram [employer] Work Phone: [facility] 12-05-2024 14:06-0400 Diastolic blood pressure 87 mm[Hg] Mariela Shahram [employer] Work Phone: [facility] 12-05-2024 14:06-0400 Heart rate 62 /min Mariela Shahram [employer] Work Phone: [facility] 12-05-2024 14:06-0400 Respiratory rate 14 /min Mariela Shahram [employer] Work Phone: [facility] 12-05-2024 14:06-0400 SaO2% (BldA) [Mass fraction] 96 % Mariela Shahram [employer] Work Phone: [facility] 12-05-2024 14:06-0400 Systolic blood pressure 120 mm[Hg] Mariela Shahram [employer] Work Phone: [facility] 12-05-2024 08:22-0400 Body height 171.45 cm Mariela Shahram [employer] Work Phone: [facility] 12-05-2024 08:22-0400 Body mass index (BMI) [Ratio] 23.4 kg/m2 Mariela Shahram [employer] Work Phone: [facility] 12-05-2024 08:22-0400 Body temperature 98 [degF] Mariela Shahram [employer] Work Phone: [facility] 12-05-2024 08:22-0400 Body weight 68.94 kg Mariela Shahram [employer] Work Phone: [facility] 12-05-2024 08:22-0400 Diastolic blood pressure 82 mm[Hg] Mariela Shahram [employer] Work Phone: [facility] 12-05-2024 08:22-0400 Heart rate 62 /min Mariela Shahram [employer] Work Phone: [facility] 12-05-2024 08:22-0400 Respiratory rate 13 /min Mariela Shahram [employer] Work Phone: [facility] 12-05-2024 08:22-0400 SaO2% (BldA) [Mass fraction] 100 % Mariela Shahram [employer] Work Phone: [facility] 12-05-2024 08:22-0400 Systolic blood pressure 185 mm[Hg] Mariela Shahram [employer] Work Phone: [facility] 11-28-2024 11:09-0400 Body mass index (BMI) [Ratio] 24 kg/m2 Mariela Shahram [employer] Work Phone: [facility] 11-28-2024 11:09-0400 Body temperature 98.5 [degF] Mariela Shahram [employer] Work Phone: [facility] 11-28-2024 11:09-0400 Body weight 70.76 kg Mariela Sahhram [employer] Work Phone: [facility] 11-28-2024 11:09-0400 Diastolic blood pressure 76 mm[Hg] Mariela Shahram [employer] Work Phone: [facility] 11-28-2024 11:09-0400 Heart rate 74 /min Mariela Shahram [employer] Work Phone: [facility] 11-28-2024 11:09-0400 Respiratory rate 16 /min Mariela Shahram [employer] Work Phone: [facility] 11-28-2024 11:09-0400 SaO2% (BldA) [Mass fraction] 100 % Mariela Shahram [employer] Work Phone: [facility] 11-28-2024 11:09-0400 Systolic blood pressure 152 mm[Hg] Mariela Shahram [employer] Work Phone: [facility] 11-20-2024 13:22-0400 Body temperature 98 [degF] Mariela Shahram [employer] Work Phone: [facility] 11-20-2024 13:22-0400 Diastolic blood pressure 81 mm[Hg] Mariela Shahram [employer] Work Phone: [facility] 11-20-2024 13:22-0400 Heart rate 86 /min Mariela Shahram [employer] Work Phone: [facility] 11-20-2024 13:22-0400 Respiratory rate 18 /min Mariela Shahram [employer] Work Phone: [facility] 11-20-2024 13:22-0400 SaO2% (BldA) [Mass fraction] 95 % Mariela Shahram [employer] Work Phone: [facility] 11-20-2024 13:22-0400 Systolic blood pressure 139 mm[Hg] Mariela Shahram [employer] Work Phone: [facility] 11-19-2024 12:37-0400 Body height 171.45 cm Mariela Shahram [employer] Work Phone: [facility] 11-19-2024 12:37-0400 Body weight 68.94 kg Mariela Shahram [employer] Work Phone: [facility] 11-19-2024 08:57-0400 Body mass index (BMI) [Ratio] 23.4 kg/m2 Mariela Shahram [employer] Work Phone: [facility] 11-18-2024 15:02-0400 Heart rate 67 /min Mariela Olson [employer] Work Phone: [facility] 11-18-2024 15:02-0400 Respiratory rate 17 /min Mariela Olson [employer] Work Phone: [facility] 11-18-2024 15:02-0400 SaO2% (BldA) [Mass fraction] 100 % Mariela Olson [employer] Work Phone: [facility] 11-18-2024 13:14-0400 Diastolic blood pressure 86 mm[Hg] Mariela Olson [employer] Work Phone: [facility] 11-18-2024 13:14-0400 Systolic blood pressure 186 mm[Hg] Mariela Olson [employer] Work Phone: [facility] 11-18-2024 09:56-0400 Body height 170.18 cm Mariela Olson [employer] Work Phone: [facility] 11-18-2024 09:56-0400 Body mass index (BMI) [Ratio] 23.9 kg/m2 Mariela Olson [employer] Work Phone: [facility] 11-18-2024 09:56-0400 Body temperature 97.8 [degF] Mariela Olson [employer] Work Phone: [facility] 11-18-2024 09:56-0400 Body weight 69.39 kg Mariela Olson [employer] Work Phone: [facility] 11-07-2024 15:00-0400 Body temperature 98.1 [degF] Mariela Olson [employer] Work Phone: [facility] 11-07-2024 15:00-0400 Diastolic blood pressure 69 mm[Hg] Mariela Olson [employer] Work Phone: [facility] 11-07-2024 15:00-0400 Heart rate 79 /min Mariela Shahram [employer] Work Phone: [facility] 11-07-2024 15:00-0400 SaO2% (BldA) [Mass fraction] 99 % Mariela Shahram [employer] Work Phone: [facility] 11-07-2024 15:00-0400 Systolic blood pressure 149 mm[Hg] Mariela Shahram [employer] Work Phone: [facility] 11-07-2024 10:48-0400 Diastolic blood pressure 66 mm[Hg] Mariela Shahram [employer] Work Phone: [facility] 11-07-2024 10:48-0400 Heart rate 88 /min Mariela Shahram [employer] Work Phone: [facility] 11-07-2024 10:48-0400 Systolic blood pressure 153 mm[Hg] Mariela Shahram [employer] Work Phone: [facility] 11-07-2024 08:22-0400 Body temperature 98 [degF] Mariela Shahram [employer] Work Phone: [facility] 11-07-2024 08:22-0400 Respiratory rate 16 /min Mariela Shahram [employer] Work Phone: [facility] 11-07-2024 07:11-0400 SaO2% (BldA) [Mass fraction] 98 % Mariela Shahram [employer] Work Phone: [facility] 11-07-2024 03:38-0400 Body height 170.18 cm Mariela Shahram [employer] Work Phone: [facility] 11-07-2024 03:38-0400 Body mass index (BMI) [Ratio] 25.1 kg/m2 Mariela Shahram [employer] Work Phone: [facility] 11-07-2024 03:38-0400 Body weight 72.8 kg Mariela Shahram [employer] Work Phone: [facility] 11-06-2024 01:00-0400 Diastolic blood pressure 71 mm[Hg] Marielabruce Olson [employer] Work Phone: [facility] 11-06-2024 01:00-0400 Heart rate 77 /min Marielabruce Olson [employer] Work Phone: [facility] 11-06-2024 01:00-0400 Respiratory rate 18 /min Marielabruce Olson [employer] Work Phone: [facility] 11-06-2024 01:00-0400 SaO2% (BldA) [Mass fraction] 99 % Mariela Olson [employer] Work Phone: [facility] 11-06-2024 01:00-0400 Systolic blood pressure 169 mm[Hg] Mariela Cifuentesgar [employer] Work Phone: [facility] 11-06-2024 00:36-0400 Body temperature 98.3 [degF] Mariela Shahram [employer] Work Phone: [facility] 11-05-2024 22:21-0400 Body height 170.18 cm Mariela Olson [employer] Work Phone: [facility] 11-05-2024 22:21-0400 Body mass index (BMI) [Ratio] 25.7 kg/m2 Mariela Shahram [employer] Work Phone: [facility] 11-05-2024 22:21-0400 Body weight 74.34 kg Mariela Shahram [employer] Work Phone: [facility] 10-31-2024 11:16-0400 Body mass index (BMI) [Ratio] 25.9 kg/m2 Mariela Shahram [employer] Work Phone: [facility] 10-31-2024 11:16-0400 Body temperature 98.4 [degF] Mariela Shahram [employer] Work Phone: [facility] 10-31-2024 11:16-0400 Body weight 74.89 kg Mariela Shahram [employer] Work Phone: [facility] 10-31-2024 11:16-0400 Diastolic blood pressure 83 mm[Hg] Mariela Hsahram [employer]UR[employer]-C Work Phone: [facility] 10-31-2024 11:16-0400 Heart rate 71 /min Mariela Shahram [employer] Work Phone: [facility] 10-31-2024 11:16-0400 Respiratory rate 18 /min Mariela Shahram [employer] Work Phone: [facility] 10-31-2024 11:16-0400 SaO2% (BldA) [Mass fraction] 98 % Mariela Shahram [employer] Work Phone: [facility] 10-31-2024 11:16-0400 Systolic blood pressure 175 mm[Hg] Mariela Shahram [employer] Work Phone: [facility] 10-24-2024 20:51-0400 Body temperature 98 [degF] Mariela Shahram [employer] Work Phone: [facility] 10-24-2024 20:51-0400 Diastolic blood pressure 73 mm[Hg] Mariela Shahram [employer] Work Phone: [facility] 10-24-2024 20:51-0400 Heart rate 72 /min Mariela Shahram [employer] Work Phone: [facility] 10-24-2024 20:51-0400 Respiratory rate 18 /min Mariela Shahram [employer] Work Phone: [facility] 10-24-2024 20:51-0400 SaO2% (BldA) [Mass fraction] 98 % Mariela Shahram [employer] Work Phone: [facility] 10-24-2024 20:51-0400 Systolic blood pressure 126 mm[Hg] Mariela Shahram [employer] AG[employer] Work Phone: [facility] 10-24-2024 17:36-0400 Body height 170 cm Mariela Shahram [employer] Work Phone: [facility] 10-24-2024 17:36-0400 Body mass index (BMI) [Ratio] 26.2 kg/m2 Mariela Shahram [employer] Work Phone: [facility] 10-24-2024 17:36-0400 Body weight 75.79 kg Mariela Shahram [employer] Work Phone: [facility] 10-17-2024 14:15-0400 Body mass index (BMI) [Ratio] 26.2 kg/m2 Mariela Shahram [employer] Work Phone: [facility] 10-17-2024 14:15-0400 Body weight 75.74 kg Mariela Shahram [employer] Work Phone: [facility] 10-17-2024 14:15-0400 Diastolic blood pressure 87 mm[Hg] Mariela Shahram [employer] Work Phone: [facility] 10-17-2024 14:15-0400 Heart rate 60 /min Mariela Shahram [employer] Work Phone: [facility] 10-17-2024 14:15-0400 Respiratory rate 16 /min Mariela Shahram [employer] Work Phone: [facility] 10-17-2024 14:15-0400 Systolic blood pressure 148 mm[Hg] Mariela Shahram [employer] Work Phone: [facility] 09-07-2024 12:53-0500 Diastolic blood pressure 71 mm[Hg] Darrel Pringle MD [facility] 09-07-2024 12:53-0500 Systolic blood pressure 159 mm[Hg] Darrel Pringle MD [facility] 08-08-2024 09:55-0500 Body mass index (BMI) [Ratio] 26.9 kg/m2 Mariela Shahram [employer] Work Phone: [facility] 08-08-2024 09:55-0500 Body temperature 98.5 [degF] Mariela Shahram [employer] Work Phone: [facility] 08-08-2024 09:55-0500 Body weight 78.18 kg Mariela Shahram [employer] Work Phone: [facility] 08-08-2024 09:55-0500 Diastolic blood pressure 90 mm[Hg] Mariela Shahram [employer] Work Phone: [facility] 08-08-2024 09:55-0500 Heart rate 81 /min Mariela Shahram [employer] Work Phone: [facility] 08-08-2024 09:55-0500 Respiratory rate 18 /min Mariela Shahram [employer] Work Phone: [facility] 08-08-2024 09:55-0500 SaO2% (BldA) [Mass fraction] 99 % Mariela Shahram [employer] Work Phone: [facility] 08-08-2024 09:55-0500 Systolic blood pressure 196 mm[Hg] Mariela Shahram [employer] Work Phone: [facility] 07-18-2024 09:20-0500 Body mass index (BMI) [Ratio] 26.5 kg/m2 Mariela Shahram [employer] Work Phone: [facility] 07-18-2024 09:20-0500 Body temperature 97.8 [degF] Mariela Shahram [employer] Work Phone: [facility] 07-18-2024 09:20-0500 Body weight 76.91 kg Mariela Shahram [employer] Work Phone: [facility] 07-18-2024 09:20-0500 Diastolic blood pressure 88 mm[Hg] Mariela Shahram [employer] Work Phone: [facility] 07-18-2024 09:20-0500 Heart rate 71 /min Mariela Shahram [employer] Work Phone: [facility] 07-18-2024 09:20-0500 Respiratory rate 16 /min Marielabruce Olson [employer] Work Phone: [facility] 07-18-2024 09:20-0500 SaO2% (BldA) [Mass fraction] 97 % Marielabruce Olson [employer] Work Phone: [facility] 07-18-2024 09:20-0500 Systolic blood pressure 193 mm[Hg] Mariela Shahram [employer] Work Phone: [facility] 07-04-2024 14:18-0500 Body mass index (BMI) [Ratio] 26.4 kg/m2 Mariela Shahram [employer] Work Phone: [facility] 07-04-2024 14:18-0500 Body temperature 98.2 [degF] Mariela Cifuentesgar [employer] AGENT-C Work Phone: [facility] 07-04-2024 14:18-0500 Body weight 76.43 kg Mariela Olson [employer] Work Phone: [facility] 07-04-2024 14:18-0500 Diastolic blood pressure 75 mm[Hg] Mariela Cifuentesgar [employer] Work Phone: [facility] 07-04-2024 14:18-0500 Heart rate 58 /min Mariela Shahram [employer] Work Phone: [facility] 07-04-2024 14:18-0500 Respiratory rate 18 /min Mariela Cifuentesgar [employer] Work Phone: [facility] 07-04-2024 14:18-0500 SaO2% (BldA) [Mass fraction] 100 % Mariela Shahram [employer] Work Phone: [facility] 07-04-2024 14:18-0500 Systolic blood pressure 165 mm[Hg] Mariela Cifuentesgar [employer] Work Phone: [facility] 12-11-2023 08:05-0400 Body temperature 97.9 [degF] Dr. Neville Islas Work Phone: [facility] 12-11-2023 08:05-0400 Diastolic blood pressure 70 mm[Hg] Dr. Neville Islas Work Phone: [facility] 12-11-2023 08:05-0400 Heart rate 59 /min Dr. Neville Islas Work Phone: [facility] 12-11-2023 08:05-0400 Respiratory rate 13 /min Dr. Neville Islas Work Phone: [facility] 12-11-2023 08:05-0400 SaO2% (BldA) [Mass fraction] 95 % Dr. Neville Islas Work Phone: [facility] 12-11-2023 08:05-0400 Systolic blood pressure 151 mm[Hg] Dr. Neville Islas Work Phone: [facility] 12-11-2023 02:39-0400 Body height 172.[address] Neville Islas Work Phone: [facility] 12-11-2023 02:39-0400 Body mass index (BMI) [Ratio] 29 kg/m2 Dr. Neville Islas Work Phone: [facility] 12-11-2023 02:39-0400 Body weight 86.[address] Neville Islas Work Phone: [facility] 08-16-2023 16:10-0500 Body temperature 97.7 [degF] Dr. Neville Islas Work Phone: [facility] 08-16-2023 16:10-0500 Diastolic blood pressure 69 mm[Hg] Dr. Neville Islas Work Phone: [facility] 08-16-2023 16:10-0500 Heart rate 64 /min Dr. Neville Islas Work Phone: [facility] 08-16-2023 16:10-0500 Respiratory rate 18 /min Dr. Neville Islas Work Phone: [facility] 08-16-2023 16:10-0500 SaO2% (BldA) [Mass fraction] 100 % Dr. Neville Islas Work Phone: [facility] 08-16-2023 16:10-0500 Systolic blood pressure 154 mm[Hg] Dr. Neville Islas Work Phone: [facility] 08-16-2023 13:54-0500 Body weight 78.[address] Neville Islas Work Phone: [facility] 08-15-2023 22:26-0500 Body mass index (BMI) [Ratio] 25.5 kg/m2 Dr. Neville Islas Work Phone: [facility] 08-15-2023 21:10-0500 Diastolic blood pressure 80 mm[Hg] [facility] 08-15-2023 21:10-0500 Heart rate 71 /min [facility] 08-15-2023 21:10-0500 Respiratory rate 18 /min [facility] 08-15-2023 21:10-0500 SaO2% (BldA) [Mass fraction] 98 % [facility] 08-15-2023 21:10-0500 Systolic blood pressure 187 mm[Hg] [facility] 08-15-2023 14:37-0500 Body height 172.72 cm [facility] 08-15-2023 14:37-0500 Body mass index (BMI) [Ratio] 27.3 kg/m2 [facility] 08-15-2023 14:37-0500 Body temperature 95.5 [degF] [facility] 08-15-2023 14:37-0500 Body weight 81.6 kg [facility] Encounters Encounter Date Encounter Type Care Provider Facility Start: 02-07-2025 End: 02-07-2025 [facility] Start: 01-18-2025 Encounter for preprocedural cardiovascular examination Adrian [facility] Start: 01-14-2025 End: 01-14-2025 ambulatory Mariela Shahram [employer] Work Phone: [facility] Work Phone: Start: 01-14-2025 End: 01-14-2025 Dr. Adrian Flores MD -Hospital Attendant/Special Procedures Work Phone: Start: 01-14-2025 End: 01-14-2025 ambulatory Adrian Flores Facility:[facility] Start: 01-11-2025 ambulatory Darrel Pringle [facility] Start: 01-09-2025 End: 01-09-2025 Dr. Brenda Araujo MD -[facility] Work Phone: Start: 01-09-2025 End: 01-09-2025 ambulatory Mariela Olson [employer] Work Phone: [facility] Work Phone: Start: 01-06-2025 ambulatory Adrian Flores Facility:[facility] Start: 01-06-2025 Dr. Adrian Flores MD -[facility] Start: 12-14-2024 End: 12-14-2024 ambulatory Mariela Shahram [employer] Work Phone: [facility] Work Phone: Start: 12-14-2024 End: 12-14-2024 Malinda Webster [employer]-C -Laboratory Work Phone: Start: 12-14-2024 End: 12-14-2024 ambulatory Malinda Webster [employer] Facility:[facility] Start: 12-11-2024 Encounter for preprocedural laboratory examination Brenda Araujo [facility] Start: 12-05-2024 End: 12-05-2024 ambulatory Mariela Olson [employer] Work Phone: [facility] Work Phone: Start: 12-05-2024 End: 12-05-[address] Brenda Araujo MD -[facility] Work Phone: Start: 12-05-2024 End: 12-05-2024 Dr. Brenda GarciaCat Scan, [facility] Work Phone: Start: 12-04-2024 End: 12-04-2024 Patient encounter procedure Ari Silvestre [facility] Work Phone: Start: 12-04-2024 End: 12-04-2024 Arijerry Silvestre [facility] Work Phone: Start: 12-04-2024 End: 12-05-2024 ambulatory [facility] Facility:[facility] Start: 11-30-2024 End: 11-30-2024 ambulatory Mariela Olson [employer] Work Phone: [facility] Work Phone: Start: 11-30-2024 End: 11-30-[address] Brenda GarciaCat Scan, [facility] Work Phone: Start: 11-30-2024 End: 11-30-2024 Dr. Brenda Araujo MD -Cat Scan, [facility] Work Phone: Start: 11-30-2024 End: 11-30-2024 ambulatory [facility] Facility:[facility] Start: 11-28-2024 ambulatory Adrian Flores Facility:[facility] Start: 11-28-2024 Non-patient / Non-visit Dr. Norberto DAVIS -[facility] Start: 11-28-2024 End: 11-28-2024 Patient encounter procedure Malinda Webster [employer]-C -Cardiovascular Services Work Phone: Start: 11-28-2024 End: 11-28-2024 Dr. Adrian Flores MD -[facility] Start: 11-28-2024 End: 11-28-[address] Brenda Araujo MD -[facility] Work Phone: Start: 11-28-2024 End: 11-28-2024 Dr. Brenda Araujo MD -[facility] Work Phone: Start: 11-28-2024 End: 11-28-2024 ambulatory Mariela Olson Facility:[facility] Start: 11-28-2024 End: 11-28-2024 ambulatory Malinda Webster NP Facility:[facility] Start: 11-20-2024 Non-patient / Non-visit Dr. Kalen Jang [facility] Work Phone: Start: 11-20-2024 Dr. Neville singh [facility] Work Phone: Start: 11-19-2024 Non-patient / Non-visit Dr. Kalen Jang [facility] Work Phone: Start: 11-19-2024 Dr. Neville singh DO [facility] Work Phone: Start: 11-19-2024 Non-patient / Non-visit Ari Sage nd DO -[facility] Start: 11-19-2024 Ari Silvestre DO -[facility] Start: 11-18-2024 Non-patient / Non-visit Dr. Marybel Schrader MD -[facility] Work Phone: Start: 11-18-2024 ambulatory Kelvin Schrader Fac ility:[facility] Start: 11-18-2024 End: 11-20-2024 Evaluation and management of inpatient Dr. Kelvin Schrader MD -[facility] Work Phone: Start: 11-18-2024 End: 11-20-2024 Dr. Neville Jang DO [facility] Work Phone: Start: 11-09-2024 ambulatory Darrel Pringle [facility] [place] Start: 11-09-2024 Office outpatient vi sit 25 minutes Darrel Pringle [facility] [place] Start: 11-07-2024 Non-patient / Non-visit Dr. Stevie francis [facility] Work Phone: Start: 11-07-2024 Dr. Stevie MOREJONWo willard [facility] Work Phone: Start: 11-07-2024 End: 11-07-2024 ambulatory Adrian Flores Facility:[facility] Start: 11-07-2024 End: 11-07-2024 Non-patient / Non-visit Dr. Adrian [facility] Work Phone: Start: 11-07-2024 End: 11-07-2024 Dr. Adrian [facility] Work Phone: Start: 11-06-2024 Non-patient / Non-visit Ari Sage nd DO -[facility] Start: 11-06-2024 Ari Silvestre DO -[facility] Start: 11-06-2024 ambulatory [facility] Facility:[facility] Start: 11-06-2024 End: 11-07-2024 Evaluation and management [...] End: 10-31-2024 ambulatory [facility] Facility:[facility] Start: 10-24-2024 End: 10-24-2024 Dr. Jerry Hightower DO -Emergency Department Work Phone: Start: 10-24-2024 End: 10-24-2024 Emergency department patient visit Mariela Shahram [employer] Work Phone: -Emergency Department Work Phone: Start: 10-24-2024 End: 10-24-[address] [facility] Start: 10-24-[address] Papi Hernandez MD -[facility] Start: 10-24-2024 End: 10-24-2024 Dr. Papi Hernandez MD -[facility] Start: 10-24-2024 End: 10-24-2024 [facility]ulatory [facility] [employer]-C Work Phone: [facility] Work Phone: Start: 10-24-2024 End: 10-24-2024 ambulatory [facility] Facility:[facility] Start: 10-17-2024 End: 10-17-2024 ambulatory [facility] [employer] Work Phone: [facility] Work Phone: Start: 10-17-2024 End: 10-17-2024 Patient encounter procedure Malinda Webster [employer]-C -Laboratory Work Phone: Start: 10-17-2024 End: 10-17-2024 Malinda Webster [employer]URANCE AGENT-C -Laboratory Work Phone: Start: 10-17-2024 End: 10-17-2024 Patient encounter procedure Malinda Webster [employer] INSURANCE AGENT-C -[facility] Work Phone: Start: 10-17-2024 End: 10-17-2024 Malinda Webster [employer]HICLE INSURANCE AGENT-C -[facility] Work Phone: Start: 10-17-2024 End: 10-17-2024 ambulatory [facility] Facility:[facility] Start: 10-17-2024 End: 10-17-2024 ambulatory [facility] Facility:[facility] Start: 09-07-2024 End: 09-07-2024 Darrel Pringle Work Phone: [facility] [place] Start: 09-07-2024 ambulatory Darrel Pringle [facility] [place] Start: 09-05-2024 End: 09-05-2024 Patient encounter procedure Mariela Olson [employer]-C -Laboratory, [facility] Start: 09-05-2024 End: 09-05-2024 Mariela Olson [employer]URANCE AGENT-C -Laboratory, [facility] Start: 09-05-2024 End: 09-05-2024 ambulatory Mariela Shahram Facility:[facility] Start: 08-08-2024 End: 08-08-[address] Papi Hernandez MD -[facility] Work Phone: Start: 08-08-2024 End: 08-08-2024 Dr. Papi Hernandez MD -[facility] Work Phone: Start: 08-08-2024 End: 08-08-2024 ambulatory Mariela Olson Facility:[facility] Start: 07-18-2024 End: 07-18-2024 Patient encounter procedure Selam Craig NP-C -[facility] Work Phone: Start: 07-18-2024 End: 07-18-2024 ambulatory Mariela Olson Facility:[facility] Start: 07-13-2024 End: 07-13-2024 Darrel Pringle Work Phone: [facility] Start: 07-13-2024 ambulatory Darrel Prinlge [facility] [place] Start: 07-04-2024 End: 07-04-[address] Papi Hernandez MD -[facility] Work Phone: Start: 07-04-2024 End: 07-04-2024 ambulatory Marielabruce Olson Facility:[facility] Start: 07-04-2024 Encounter [facility] other [facility] Start: 06-25-2024 Encounter for other preprocedural examination Du Thomas [facility] Start: 06-22-2024 ambulatory Du Thomas Facility: [facility] Start: 06-22-2024 End: 06-22-2024 ambulatory Du Thomas Facility:[facility] Start: 06-20-2024 End: 06-20-2024 ambulatory Du Thomas Facility:[facility] Start: 06-18-2024 ambulatory Mariela Shahram [facility] Start: 06-12-2024 End: 06-12-2024 ambulatory Mariela Shahram Facility:[facility] Start: 06-08-2024 End: 06-10-2024 Evaluation and management of inpatient Lucy Polanco Facility:[facility] Start: 06-08-2024 ambulatory Lucy Polanco [facility] Start: 06-07-2024 End: 06-07-2024 Emergency department patient visit Jerry Hightower Facility:[facility] Start: 06-07-2024 End: 06-08-2024 ambulatory Mariela Shahram Facility:[facility] Start: 05-31-2024 End: 05-31-2024 ambulatory Mariela Olson Facility:[facility] Start: 05-25-2024 End: 05-25-2024 Darrel Pringle Work Phone: [facility] Start: 05-25-2024 ambulatory Darrel Pringle [facility] Start: 05-16-2024 End: 05-16-2024 ambulatory Mariela Olson Facility:[facility] Start: 05-10-2024 End: 05-10-2024 ambulatory Du Thomas Facility:[facility] Start: 05-07-2024 End: 05-07-2024 ambulatory Mariela Olson Facility:[facility] Start: 04-27-2024 ambulatory Du Thomas Facility: [facility] Start: 04-27-2024 End: 05-01-2024 Evaluation and management of inpatient Du Tohmas Facility:[facility] Start: 04-27-2024 ambulatory Du Thomas Facility: [facility] Start: 04-25-2024 Encounter for preprocedural cardiovascular examination Adriankaitlin Flores [facility] Start: 04-25-2024 End: 04-25-2024 ambulatory Mariela Olson Facility:[facility] Start: 04-23-2024 Patient encounter status Mariela Olson [employer] Work Phone: [facility] Comment on above: Right hemicolectomy 04/27/2024 Start: 04-20-2024 End: 04-20-2024 ambulatory Mariela Olson Facility:[facility] Start: 04-13-2024 ambulatory Ari Silvestre Facility :[facility] Start: 04-13-2024 ambulatory Len Staton Facility:[facility] Start: 04-12-2024 End: 04-12-2024 ambulatory Mariela Olson Facility:[facility] Start: 04-12-2024 ambulatory Darrel Carpenter Facili ty:[facility] Start: 04-12-2024 End: 04-15-2024 Evaluation and management of inpatient Darrel Carpenter Facility:[facility] Start: 04-11-2024 End: 04-11-2024 ambulatory Mariela Olson Facility:[facility] Start: 03-30-2024 End: 03-30-2024 Darrel Pringle Work Phone: [facility] Start: 03-30-2024 ambulatory Darrel Pringle [facility] Start: 02-15-2024 End: 02-15-2024 ambulatory Lisandragary Lazcano Facility:[facility] Start: 02-10-2024 End: 02-10-2024 Darrel Pringle Work Phone: [facility] Start: 02-03-2024 End: 02-03-2024 ambulatory Neville Islas Facility:[facility] Start: 12-21-2023 End: 12-21-2023 Darrel Pringle Work Phone: [facility] Start: 12-11-2023 End: 12-11-2023 Emergency department patient visit Dr. Neville Islas Work Phone: [facility]-Emergency Department Work Phone: Start: 10-26-2023 End: 10-26-2023 Darrel Pringle Work Phone: [facility] Start: 08-24-2023 End: 08-24-2023 Darrel Pringle Work Phone: [facility] Start: 08-22-2023 End: 08-22-[address] Nev[facility] Islas [facility] Phone: [facility] Start: 08-16-2023 Non-patient / Non-visit Dr. Kalen Islas Work Phone: [facility] Work Phone: Start: 08-16-2023 Non-patient / Non-visit Dr. Kalen Islas Work Phone: [facility] Start: 08-16-2023 Non-patient / Non-visit Dr. Kalen Islas Work Phone: [facility] Start: 08-15-2023 End: 08-15-2023 Non-patient / Non-visit Dr. Neville Islas Work Phone: [facility] Work Phone: Start: 08-15-2023 End: 08-16-2023 Evaluation and management of inpatient [facility]Pro[facility] Work Phone: Start: 08-15-2023 Non-patient / Non-visit Dr. Kalen Islas Work Phone: [facility] Work Phone: Start: 06-29-2023 End: 06-29-2023 Darrel Pringle Work Phone: [facility] Start: 05-11-2023 End: 05-11-2023 Darrel Pringle Work Phone: [facility] Start: 03-30-2023 End: 03-30-2023 Darrel Pringle Work Phone: [facility] Start: 02-23-2023 End: 02-23-2023 Darrel Pringle Work Phone: [facility] Start: 01-25-2023 End: 01-25-2023 ambulatory [facility] Work Phone: Start: 01-25-2023 End: 01-25-2023 Patient encounter procedure [facility] Start: 01-19-2023 End: 01-19-2023 Darrel Pringle Work [...] encounter status Beata Herrera MD Work Phone: [facility] Work Phone: Procedures Date Procedure Procedure Detail Performing Clinician Start: 01-11-2025 Computerized ophthalmic imaging retina Darrel Pringle Start: 01-11-2025 Eylea 1mg Pre-filled Syringe Darrel howard Start: 01-11-2025 Intravitreal njx pharmacologic agt spx Darrel Pringle Start: 01-08-2025 Blood count smear mcrscp w/mnl difrntl wbc count Mariela Olson [employer] Work Phone: Start: 01-08-2025 Mean corpuscular hemoglobin concentration determination Mariela Olson [employer] Work Phone: Start: 01-08-2025 Nucleated red blood cell count procedure Mariela Olson [employer] Work Phone: Start: 01-08-2025 Platelet mean volume determination Mariela Olson [employer] Work Phone: Start: 12-14-2024 X-ray of chest, PA and lateral views Mariela Olson [employer] Work Phone: Start: 12-14-2024 Blood count smear mcrscp w/mnl difrntl wbc count Marielabruce Olson [employer] Work Phone: Start: 12-14-2024 Mean corpuscular hemoglobin concentration determination Mariela Olsno [employer] Work Phone: Start: 12-14-2024 Nucleated red blood cell count procedure Mariela Olson [employer] Work Phone: Start: 12-14-2024 Platelet mean volume determination Mariela Olson [employer] Work Phone: Start: 12-14-2024 Total iron binding capacity measurement Mariela Olson [employer] Work Phone: Start: 12-05-2024 Biopsy/Inj or Needle Placement Mariela burrell [employer] Work Phone: Start: 12-05-2024 Mariela Olson [employer] Work Phone: Start: 12-05-2024 Blood count smear mcrscp w/mnl difrntl wbc count Mariela Olson [employer] Work Phone: Start: 12-05-2024 Calculation of international normalized ratio Mariela Olson [employer] Work Phone: Start: 12-05-2024 Mean corpuscular hemoglobin concentration determination Mariela Olson [employer] Work Phone: Start: 12-05-2024 Nucleated red blood cell count procedure Mariela Olson [employer] Work Phone: Start: 12-05-2024 Platelet mean volume determination Mariela Olson [employer] Work Phone: Start: 11-30-2024 CT of thorax with contrast Mariela Olson [employer] Work Phone: Start: 11-20-2024 Blood count smear mcrscp w/mnl difrntl wbc count Mariela Olson [employer] Work Phone: Start: 11-20-2024 Mean corpuscular hemoglobin concentration determination Mariela Olson [employer] Work Phone: Start: 11-20-2024 Nucleated red blood cell count procedure Mariela Olson [employer] Work Phone: Start: 11-20-2024 Platelet mean volume determination Mariela Olson [employer] Work Phone: Start: 11-19-2024 Colonoscopy Mariela Olson [employer] Work Phone: Start: 11-19-2024 Estimated creatinine clearance Mariela burrell [employer] Work Phone: Start: 11-18-2024 Computed tomography of abdomen and pelvis with intravenous contrast Mariela Olson [employer] Work Phone: Start: 11-09-2024 Computerized ophthalmic imaging retina Darrel Pringle Start: 11-09-2024 Eylea Free Drug Darrel Pringle Start: 11-09-2024 Intravitreal njx pharmacologic agt spx Darrel Pringle Start: 11-07-2024 Blood count smear mcrscp w/mnl difrntl wbc count Mariela Olson [employer] Work Phone: Start: 11-07-2024 Estimated creatinine clearance Mariela burrell [employer] Work Phone: Start: 11-07-2024 Mean corpuscular hemoglobin concentration determination Mariela Olson [employer] Work Phone: Start: 11-07-2024 Nucleated red blood cell count procedure Mariela Olson [employer] Work Phone: Start: 11-07-2024 Platelet mean volume determination Mariela Olson [employer] Work Phone: Start: 11-06-2024 Flexible fiberoptic sigmoidoscopy Mariela Olson [employer] Work Phone: Start: 11-06-2024 Clostridium difficile detection Mariela cruz [employer] Work Phone: Start: 11-06-2024 Lactoferrin measurement Mariela Olson [employer] Work Phone: Start: 11-06-2024 Nucleic acid assay Mariela Cifuentesgar [employer] Work Phone: Start: 11-06-2024 Ova OR parasites identification Mariela gamezar [employer] Work Phone: Start: 11-06-2024 Ova&parasites direct smears concentration & id Mariela Olson [employer] Work Phone: Start: 11-06-2024 Iadna-dna/rna gi pthgn multiplex probe tq 6-11 Mariela Cifuentesgar [employer] Work Phone: Start: 11-06-2024 Osmolality measurement, serum Mariela Schwartz ar [employer] Work Phone: Start: 11-06-2024 Serum inorganic phosphate measurement Mariela Cifuetnesgar [employer] Work Phone: Start: 11-06-2024 Total iron binding capacity measurement Mariela Cifuentesgar [employer] Work Phone: Start: 11-05-2024 Computed tomography of abdomen and pelvis with contrast Mariela Olson [employer] Work Phone: Start: 11-05-2024 Assay of lactate Mariela Olson [employer] Work Phone: Start: 11-05-2024 Calculation of international normalized ratio Mariela Cifuentesgar [employer] Work Phone: Start: 11-05-2024 Measurement of occult blood in stool specimen using immunoassay Mariela Olson [employer] Work Phone: Start: 10-24-2024 Urine microscopy: red cells Mariela Olson [employer] Work Phone: Start: 10-24-2024 Urnls dip stick/tablet reagent auto microscopy Mariela Shahram [employer] Work Phone: Start: 10-24-2024 Blood count smear mcrscp w/mnl difrntl wbc count Mariela Olson [employer] Work Phone: Start: 10-24-2024 Estimated creatinine clearance Mariela burrell [employer] Work Phone: Start: 10-24-2024 Mean corpuscular hemoglobin concentration determination Mariela Olson [employer] Work Phone: Start: 10-24-2024 Nucleated red blood cell count procedure Mariela Olson [employer] Work Phone: Start: 10-24-2024 Platelet mean volume determination Mariela Olson [employer] Work Phone: Start: 10-24-2024 Triacylglycerol lipase measurement Mariela Olson [employer] Work Phone: Start: 10-24-2024 Ultrasound of scrotum with Doppler and color flow imaging Mariela Olson [employer] Work Phone: Start: 10-24-2024 Computed tomography of abdomen and pelvis with intravenous contrast Mariela Olson [employer] Work Phone: Start: 10-24-2024 Carcinoembryonic antigen cea Mariela guzman [employer] Work Phone: Comment on above: Nonsmokers <3.9 Smokers <5.6[employer] Electrochemiluminescence Immunoassay(ECLIA)Values obtained with different assay methods or kitscannot be used interchangeably. Results cannot beinterpreted as absolute evidence of the presence orabsence of malignant disease.Performed at: [address] [id number] Director: Jian Paredes PhD, Phone: [phone] Start: 10-24-2024 Estimated creatinine clearance Mariela burrell [employer] Work Phone: Start: 10-24-2024 Mean corpuscular hemoglobin concentration determination Mariela Olson [employer] Work Phone: Start: 10-24-2024 Nucleated red blood cell count procedure Mariela Olson [employer] Work Phone: Start: 10-24-2024 Platelet mean volume determination Mariela Olson [employer] Work Phone: Start: 10-24-2024 Procedure Mariela Olson [employer] Work Phone: Start: 10-17-2024 Urine microscopy: red cells Mariela Olson [employer] Work Phone: Start: 10-17-2024 Urnls dip stick/tablet reagent auto microscopy Mariela Olson [employer] Work Phone: Start: 09-07-2024 End: 09-07-2024 Computerized ophthalmic imaging retina Darrel Pringle MD Start: 09-07-2024 End: 09-07-2024 Eylea 1mg Pre-filled Syringe Darrel howard MD Start: 09-07-2024 Eylea 1mg Pre-filled Syringe Darrel howard Start: 09-07-2024 End: 09-07-2024 Eylea Free Drug Darrel Pringle MD Start: 09-07-2024 End: 09-07-2024 Intravitreal njx pharmacologic agt spx Darrel Pringle MD Start: 09-05-2024 Albumin/Globulin ratio Mariela Olson [employer] Work Phone: Start: 09-05-2024 Anion gap measurement Mariela Olson [employer] Work Phone: Start: 09-05-2024 Blood count smear mcrscp w/mnl difrntl wbc count Mariela Olsno [employer] Work Phone: Start: 09-05-2024 BUN/Creatinine ratio Mariela Olson [employer] Work Phone: Start: 09-05-2024 Mean corpuscular hemoglobin concentration determination Mariela Olson [employer] Work Phone: Start: 09-05-2024 Measurement of renal function Mariela vaca [employer] Work Phone: Comment on above: GFR Calc Start: 09-05-2024 Nucleated red blood cell count procedure Mariela Olson [employer] Work Phone: Start: 09-05-2024 Platelet mean volume determination Mariela Olson [employer] Work Phone: Start: 07-18-2024 Carcinoembryonic antigen cea Mariela Ryder r [employer] Work Phone: Comment on above: Nonsmokers <3.9 Smokers <5.6[employer] Electrochemiluminescence Immunoassay(ECLIA)Values obtained with different assay methods or kitscannot be used interchangeably. Results cannot beinterpreted as absolute evidence of the presence orabsence of malignant disease.Performed at: [facility] [address] [id number] Director: Jian Paredes PhD, Phone: [phone] Start: 07-18-2024 Measurement of renal function Mariela vaca [employer] Work Phone: Comment on above: GFR Calc Start: 07-13-2024 End: 07-13-2024 Computerized ophthalmic imaging retina Darrel Pringle MD Start: 07-13-2024 End: 07-13-2024 Eylea Free Drug Darrel Pringle MD Start: 07-13-2024 Eylea Free Drug Darrel Pringle Start: 07-13-2024 End: 07-13-2024 Intravitreal njx pharmacologic agt spx Darrel Pringle MD Start: 07-04-2024 Calculation of international normalized ratio Mariela Olson [employer] Work Phone: Start: 05-29-2024 Positron emission tomography with computed tomography Mariela Olson [employer] Work Phone: Start: 05-25-2024 End: 05-25-2024 Computerized ophthalmic imaging retina Darrel Pringle MD Start: 05-25-2024 End: 05-25-2024 Eylea Free Drug Darrel Pringle MD Start: 05-25-2024 Eylea Free Drug Darrel Pringle Start: 05-25-2024 End: 05-25-2024 Intravitreal njx pharmacologic agt spx Darrel Pringle MD Start: 05-16-2024 Ferritin measurement Mariela Olson [employer] Work Phone: Start: 05-16-2024 Immature reticulocyte fraction Mariela burrell [employer] Work Phone: Start: 05-16-2024 Total iron binding capacity measurement Mariela Olson [employer] Work Phone: Start: 03-30-2024 End: 03-30-2024 Computerized [...] bypass grafting Hx of CABG Malinda Webster [employer] Comment on above: FUNG in situ mammary [...] 04-01-2025 Influenza vaccination Influenza Vaccine (Season Ended) [facility] Start: 01-14-2025 Patient discharge [facility] Start: 01-09-2025 Patient referral [facility] Work Phone: Start: 12-05-2024 Catheterization of vein [facility] Start: 12-05-2024 Oxygen therapy [facility] Start: 12-05-2024 Patient discharge [facility] Start: 12-05-2024 Vital signs measurements [facility] Start: 12-05-2024 Following clinical pathway protocol [facility] Start: 12-05-2024 [facility] Start: 11-20-2024 Patient discharge [facility] Start: 11-18-2024 Application of intermittent pneumatic compression device [facility] Start: 11-18-2024 Following clinical pathway protocol [facility] Start: 11-18-2024 Ambulation without limitation [facility] Start: 11-18-2024 Assessment of risk of venous thromboembolism [facility] Start: 11-18-2024 Insertion of catheter into peripheral vein [facility] Start: 11-18-2024 Providing care according to standard [facility] Start: 11-18-2024 Referral to gastroenterology service [facility] Start: 11-18-2024 [facility] Start: 11-18-2024 Verification routine [facility] Start: 11-18-2024 Admission procedure [facility] Start: 11-18-2024 Patient referral to dietitian [facility] Start: 11-09-2024 Jared Raymond 8 Weeks/ / MAY/ POSS EYLEA/ PAP [facility] Work Phone: Start: 11-07-2024 Patient discharge [facility] Start: 11-07-2024 Care planning and problem solving actions [facility] Start: 11-06-2024 Ova and Parasites Ova and Parasites [facility] Start: 11-06-2024 Enteric precautions [facility] Start: 11-06-2024 Application of intermittent pneumatic compression device [facility] Start: 11-06-2024 Following clinical pathway protocol [facility] Start: 11-06-2024 Assessment of risk of venous thromboembolism [facility] Start: 11-06-2024 Documentation procedure [facility] Start: 11-06-2024 Insertion of catheter into peripheral vein [facility] Start: 11-06-2024 Measuring intake and output [facility] Start: 11-06-2024 Oxygen therapy [facility] Start: 11-06-2024 Providing care according to standard [facility] Start: 11-06-2024 Provision of activity privileges [facility] Start: 11-06-2024 Referral to gastroenterology service [facility] Start: 11-06-2024 Referral to service [facility] Start: 11-06-2024 [facility] Start: 11-06-2024 Admission procedure [facility] Start: 11-06-2024 Verification routine [facility] Start: 11-06-2024 Hospital admission, emergency, from emergency room, medical nature [facility] Start: 11-06-2024 Patient referral to dietitian [facility] Start: 11-06-2024 [facility] Start: 10-24-2024 [facility] Start: 10-24-2024 [facility] Start: 09-07-2024 Smoking cessation education Tobacco cessation counseling [facility] Start: 08-01-2024 Advance Directive Discussion Advance Directive Discussion [facility] Start: 07-13-2024 Smoking cessation education Tobacco cessation counseling [facility] Start: 07-04-2024 Patient referral [facility] Work Phone: Start: 04-01-2024 Covid-19 Vaccine ( season) Covid-19 Vaccine () [facility] Start: 03-30-2024 Smoking cessation education Tobacco cessation counseling [facility] Start: 02-10-2024 Smoking cessation education Tobacco cessation counseling [facility] Start: 12-21-2023 Smoking cessation education Tobacco cessation counseling [facility] Start: 12-11-2023 [facility] Start: 08-16-2023 Patient discharge [facility] Start: 08-15-2023 Following clinical pathway protocol [facility] Start: 08-15-2023 Notification of physician [facility] Start: 08-15-2023 [facility] Start: 08-15-2023 Admission procedure [facility] Start: 08-15-2023 Hospital admission, emergency, from emergency room, medical nature [facility] Start: 08-15-2023 Patient referral to dietitian [facility] Start: 06-29-2023 Smoking cessation education Tobacco cessation counseling [facility] Start: 05-11-2023 Smoking cessation education Tobacco cessation counseling [facility] Start: 05-05-2023 DIABETES SCREEN DIABETES SCREEN [facility] Start: 05-05-2023 Diabetes Screening Diabetes Screening [facility] Start: 03-30-2023 Smoking cessation education Tobacco cessation counseling [facility] Start: 01-19-2023 Smoking cessation education Tobacco cessation counseling [facility] Start: 12-08-2022 Smoking cessation education Tobacco cessation counseling [facility] Start: 09-29-2022 Smoking cessation education Tobacco cessation counseling [facility] Start: 09-01-2022 Smoking cessation education Tobacco cessation counseling [facility] Start: 04-01-2022 Influenza vaccination INFLUENZA (#1) [facility] Start: 08-01-2021 ADVANCE DIRECTIVE DISCUSSION ADVANCE DIRECTIVE DISCUSSION [facility] Start: 05-05-2021 Hepatitis B surface antibody level LDL CHOLESTEROL [facility] Start: 08-03-2020 ANNUAL PCP TEAM CHRONIC DISEASE VISIT ANNUAL PCP TEAM CHRONIC DISEASE VISIT [facility] Start: 07-20-2020 Adult depression screening assessment DEPRESSION SCREENING [facility] Start: 2019 RSV Vaccine (1 - 1-dose 75+ series) RSV Vaccine (1 - 1-dose 75+ series) [facility] Start: 03-01-2009 Medicare Annual Wellness Visit Medicare Annual Wellness Visit [facility] Start: 1994 Pneumococcal Vaccine: 50+ (1 of 1 - PCV) Pneumococcal Vaccine: 50+ (1 of 1 - PCV) [facility] Start: 1994 SHINGRIX VACCINE (1 of 2) SHINGRIX VACCINE (1 of 2) [facility] Start: 1963 [facility] Start: 1962 Annual PCP Team Chronic Disease Visit Annual PCP Team Chronic Disease Visit [facility] Start: 1962 Anxiety Screening Anxiety Screening [facility] Start: 1962 BP CONTROLLED (<130/80) BP CONTROLLED (<130/80) [facility] Start: 1962 Depression Screening Depression Screening [facility] Start: 1962 HEPATITIS C SCREENING HEPATITIS C SCREENING [facility] Start: 1950 PNEUMOCOCCAL: 65+ (1 - PCV) PNEUMOCOCCAL: 65+ (1 - PCV) [facility] Start: 1944 COVID-19 VACCINE (#1) COVID-19 VACCINE (#1) [facility] Anion gap in Serum o r Plasma [facility] BUN/Creatinine ratio [facility] Calcium [Mass/volume ] in Serum or Plasma [facility] Carbon dioxide, tota l [Moles/volume] in Central venous blood [facility] Carcinoembryonic Ag [Mass/volume] in Serum or Plasma [facility] Carcinoembryonic Ag [Mass/volume] in Serum or Plasma [facility] Carcinoembryonic Ag [Mass/volume] in Serum or Plasma [facility] CBC W Auto Different ial panel - Blood [facility] Comprehensive metabo lic 2000 panel - Serum or Plasma [facility] Creatinine [Mass/vol ume] in Serum or Plasma [facility] CT Abdomen and Pelvi s W contrast IV [facility] Erythrocyte mean corpuscular volume determination [facility] Ferritin [Mass/volum e] in Serum or Plasma [facility] Glucose [Mass/volume ] in Serum or Plasma [facility] Hematocrit [Volume Fraction] of Blood [facility] Hemoglobin [Mass/vol ume] in Blood [facility] Iron and Iron bindin g capacity panel - Serum or Plasma [facility] Leukocytes [#/volume ] in Blood [facility] Magnesium measurement [facility] Mean corpuscular hem oglobin concentration determination [facility] Mean corpuscular hem oglobin determination [facility] Measurement of renal function [facility] Neutrophil count [facility] Neutrophil percent differential count [facility] Ova OR parasites identification [facility] Patient Education [facility] Work Phone: Patient referral [facility] Work Phone: Platelets [#/volume] in Blood [facility] Potassium measurement [facility] Red blood cell count [facility] Red cell distributio n width determination [facility] Serum chloride measurement [facility] Sodium measurement [facility] Urea nitrogen [Mass/ volume] in Serum or Plasma [facility] Immunizations Immunization Date Immunization Notes Care Provider Fa cility 08-03-2019 influenza virus vacc ine, unspecified formulation Papi Hernandez MD Work Phone: [facility] Payers Date Payer Category Payer Medicare [id number] 2024 Self-pay [id number] 2024 Self-pay [id number] 2022 Self-pay 0 [id number] 2009 Medicare MEDICARE [id number] 1944 Unknown [id number] 2.840.1.881239.3.579.2.134 7 1944 Unknown [id number] 2..840.1.325139.3.579.2.134 7 1944 Unknown [id number] 2.840.1.759567.3.579.2.134 7 1944 Unknown [id number] 2.16.840.1.763041.3.579.2.134 7 1944 Unknown [id number] 2.16.840.1.724355.3.579.2.134 7 4 Unknown [id number] 2.16.840.1.981923.3.579.2.134 7 Unknown [id number] 2.16.840.1.008706.3.579.2.462 Unknown [id number] 2.16.840.1.883192.3.579.2.462 Unknown [id number] 2.16.840.1.245493.3.579.2.462 Unknown [id number] 2.16.840.1.360687.3.579.2.462 Unknown [id number] 2.16.840.1.102989.3.579.2.462 Unknown [id number] 2.16.840.1.798716.3.579.2.462 Unknown [id number] 2.16.840.1.283611.3.579.2.462 Unknown [id number] 2.16.840.1.810018.3.579.2.462 Unknown [id number] 2.16.840.1.868499.3.579.2.462 Unknown [id number] 2.16.840.1.487456.3.579.2.462 Unknown [id number] 2.16.840.1.938450.3.579.2.462 Unknown [id number] 2.16.840.1.159006.3.579.2.462 Unknown [id number] 2.16.840.1.638688.3.579.2.462 Unknown [id number] 2.16.840.1.120191.3.579.2.462 Unknown [id number] 2.16.840.1.907323.3.579.2.462 Unknown [id number] 2.16.840.1.356104.3.579.2.462 Unknown [id number] 2.16.840.1.759081.3.579.2.462 Unknown [id number] 2.16.840.1.395026.3.579.2.462 Unknown [id number] 2.16.840.1.103157.3.579.2.462 Unknown [id number] 2.16.840.1.159616.3.579.2.462 Unknown [id number] 2.16.840.1.781352.3.579.2.462 Unknown [id number] 2..840.1.218575.3.579.2.462 Unknown [id number] 2..840.1.021936.3.579.2.462 Unknown [id number] 2.840.1.205724.3.579.2.462 Unknown [id number] 2..840.1.343572.3.579.2.462 Unknown [id number] 2..840.1.148728.3.579.2.462 Unknown [id number] 2..840.1.048942.3.579.2.462 Unknown [id number] 2.16.840.1.402211.3.579.2.462 Unknown [id number] 2.16.840.1.107326.3.579.2.462 Unknown [id number] 2.16.840.1.373660.3.579.2.462 Unknown [id number] 2.16.840.1.504265.3.579.2.462 Unknown [id number] 2.16.840.1.707956.3.579.2.462 Unknown [id number] 2.16.840.1.470390.3.579.2.462 Unknown [id number] 2.16.840.1.109827.3.579.2.462 Unknown [id number] 2.16.840.1.465174.3.579.2.462 Unknown [id number] 2.16840.1.741087.3.579.2.462 Unknown [id number] 2.16.840.1.541869.3.579.2.462 Unknown [id number] 2.840.1.890372.3.579.2.462 Unknown [id number] 2.840.1.505735.3.579.2.462 Unknown [id number] 2.840.1.363688.3.579.2.462 Unknown [id number] 2.840.1.189584.3.579.2.462 Unknown [id number] 2.840.1.477221.3.579.2.462 Unknown [id number] 2.840.1.740630.3.579.2.462 Unknown [id number] 2.840.1.564206.3.579.2.462 Unknown [id number] 2.840.1.178440.3.579.2.462 Unknown [id number] 2.840.1.013749.3.579.2.462 Unknown [id number] 2.840.1.088048.3.579.2.462 Unknown [id number] 2.840.1.613716.3.579.2.462 Unknown [id number] 2.840.1.661083.3.579.2.462 Unknown [id number] 2.840.1.856143.3.579.2.462 Unknown [id number] 2.840.1.539956.3.579.2.462 Unknown [id number] 2.840.1.379008.3.579.2.462 Unknown [id number] 2.16.840.1.936882.3.579.2.462 Unknown [id number] 2.16.840.1.201164.3.579.2.462 Unknown [id number] 2.16.840.1.224627.3.579.2.462 Unknown [id number] 2.16.840.1.749058.3.579.2.462 Unknown [id number] 2.16.840.1.771388.3.579.2.462 Unknown [id number] 2.16.840.1.560392.3.579.2.462 Unknown [id number] 2.16.840.1.910499.3.579.2.462 Unknown [id number] 2.16.840.1.890442.3.579.2.462 Unknown [id number] 2.16.840.1.749642.3.579.2.462 Unknown [id number] 2.16.840.1.118105.3.579.2.462 Unknown [id number] 2.16.840.1.719531.3.579.2.462 Unknown [id number] Unknown [id number] Unknown [id number] Unknown [id number] Unknown [id number] Unknown [id number] Unknown [id number] [id number] Unknown [id number] Unknown [id number] Unknown [id number] Social History Date Type Detail Facility Start: 08-01-1959 End: 05-05-2020 Tobacco smoking status NHIS Occasional tobacco smoker [facility] End: 08-01-1993 History of tobacco use Cigar Smoker [facility] Start: 05-07-2019 End: 07-06-2020 Cigarettes smoked current (pack per day) - Reported 1 [facility] Start: 05-07-2019 End: 05-05-2020 Tobacco use and exposure Smokeless tobacco non-user [facility] Start: 05-05-2020 Alcohol intake 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 quit cigarettes in 1993 [facility] Start: 1945 Sex Assigned At Not on file C [facility] Start: 03-06-2018 End: 09-07-2024 Tobacco smoking status CTIS Unknown if ever smoked [facility] Start: 01-25-2023 None [facility] Start: 10-31-2014 Spouse/ Signif icant Other [facility] Start: 01-25-2023 Cigarettes [facility] Start: 1945 Sex Assigned At Male W [facility] Start: 09-07-2024 Alcohol intake Alcohol Use Details C [facility]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 [facility] Start: 10-24-2024 End: 01-14-2025 Tobacco smoking status NHIS Ex-smoker (finding) [facility] Start: 10-24-2024 End: 11-20-2024 Sex Male (finding) [facility] Start: 08-01-1958 End: 08-01-1993 History of tobacco use Cigarette Smoker [facility] Start: 05-05-2020 End: 07-06-2020 Tobacco use panel [facility] PHQ2 Score 0 [facility] NEGATED: Highlighted rowStart: 09-07-2024 History of tobacco use Ex-cigarette smoker [facility] Medical Equipment Procedure Code Equipment Code Equipment Origin al Text Equipment Identifier Dates Sigmoidoscopy, flexible [id number] FDA Start: 11-06-2024 Colonoscopy [id number] FDA Start: 04-13-2024 Colonoscopy [id number] [id number] FDA Start: 11-19-2024 Penelope Thk1.65mm P tfe 4x.5in Cardiovascular Sterile - [id number] Start: 07-19-2019 [facility] FDA Sta rt: 04-27-2024 CLIP,[facility] FDA St art: 04-27-2024 [id number] FDA Start: 04-27-2024 ()[id number] [id number] FDA Start: 04-27-2024 [facility] FDA Sta rt: 04-27-2024 [facility] FDA St art: 04-27-2024 CLIP,[facility] FDA Sta rt: 04-27-2024 CLIP,[facility] FDA St art: 04-27-2024 CLIP,[facility] FDA Sta rt: 04-27-2024 CLIP,[facility] FDA St art: 04-27-2024 CLIP,[facility] FDA Sta rt: 04-27-2024 CLIP,[facility] FDA St art: 04-27-2024 CLIP,[facility] FDA Sta rt: 04-27-2024 CLIP,[facility] FDA St art: 04-27-2024 CLIP,[facility] FDA Sta rt: 04-27-2024 CLIP,[facility] FDA St art: 04-27-2024 FDA Start: 04-27-2024 FDA Start: 04-27-2024 [facility] FDA Sta rt: 04-27-2024 [facility] FDA St art: 04-27-2024 FDA Start: 04-27-2024 FDA Start: 04-27-2024 FDA Start: 04-27-2024 FDA Start: 04-27-2024 FDA Start: 04-27-2024 FDA Start: 04-27-2024 Goals Date Patient Goal Desired Activity /State Functional Status Date Assessment Result Facility 11-20-2024 Functional status Ambulates [facility] Work Phone: 11-07-2024 Functional status Ambulates;Up ad raghavendra [facility] Work Phone: 08-16-2023 Functional status Ambulates;Bath room Privilege [facility] Work Phone: 08-15-2023 Functional status Tolerates Activity Well [facility] Work Phone: 07-23-2019 Are you deaf, or do you have serious difficulty hearing No 07/23/2019 4:22 PM Isaac Guzman APRN.OCCUPATIONAL NURSE No [facility] Work Phone: 07-23-2019 Are you blind, or do you have serious difficulty seeing, even when wearing glasses No 07/23/2019 4:22 PM Isaac Guzman APRN.OCCUPATIONAL NURSE No [facility] 07-23-2019 Do you have serious difficulty walking or climbing stairs No 07/23/2019 4:22 PM Isaac Guzman APRN.OCCUPATIONAL NURSE No [facility] 07-23-2019 Do you have difficul ty dressing or bathing No 07/23/2019 4:22 PM Isaac Guzman, TASH.OCCUPATIONAL NURSE No [facility] 07-23-2019 Because of a physica l, mental, or emotional condition, do you have difficulty doing errands alone such as visiting a physician's office or shopping No 07/23/2019 4:22 PM Isaac Guzman APRN.OCCUPATIONAL NURSE No [facility] Mental Status Date Assessment Result Facility 12-05-2024 Cognitive function Voice/Name [facility] Work Phone: 12-05-2024 Cognitive function Awake;Alert;A ppropriate;Fol lows Commands [facility] Work Phone: 11-20-2024 Cognitive function Voice/Name [facility] Work Phone: 11-07-2024 Cognitive function Voice/Name [facility] Work Phone: 08-16-2023 Cognitive function Voice/Name [facility] Work Phone: 08-15-2023 Cognitive function Level Of Cons ciousness Awake;Alert;Appropriate;Fol lows Commands [facility] Work Phone: 07-23-2019 Because of a physica l, mental, or emotional condition, do you have serious difficulty concentrating, remembering, or making decisions No 07/23/2019 4:22 PM Isaac Guzman APRN.OCCUPATIONAL NURSE No [facility] Clinical Notes 07-19-2019 to 02-05-2025 Note Date & Type Note Facility 02-05-2025 Note Patient sched for fi nancial counseling and CTA/VC appts. I will mail her VEHICLE INSURANCE AGENT packet and make chart. [facility] 01-13-2025 History and physical note Note Date/Time January 13, 2025 7:57am [facility] Medical Records Department [address] [place] [address] History & Physical Exam 01/06/25 0808 MR#: [id number] Acct: [id number] Name: JARED RAYMOND Rep #:[id number] : 1945 79 From: Adrian Flores MD PCP: MARYAM Guerra Status:PRE [facility] Location: [facility] History and Physical [...] Vital Signs: See EMR Intake Visit Reasons: [facility] Medical Doctor Md/Medical Director Required: No Is patient in pain?: No Allergies No Known Allergies Allergy (Verified 10/17/24 14:22) Medications: See EMR Ejection fraction %: 70 Have you fallen in the past year?: No [facility] Medical History (Updated 10/17/24 @ 14:43 by Malinda Webster VEHICLE INSURANCE AGENT, VEHICLE INSURANCE AGENT-C) Encounter for education Pre-op testing Wears dentures [...] MARYAM Olson; Dr. Adrian Flores MD~ Signed [facility] Work Phone: 1(141) 367-997206-08-2025 [facility]05-17-2025 Radiology Diagnostic study [facility]05-07-2025 Radiology Diagnostic study note [facility] Imaging Services [address] [place], [place] [address] Biopsy/Inj or Needle Placement MR#: [id number] Acct: [id number] Name: JARED RAYMOND Rep #: [id number] : 1945 M 79 From: Esdras Watts MD PCP: MARYAM Guerra Status: REG CLI Study:Biopsy/Inj or Needle Placement Date of Exam: 12/05/24 Exam# [id number] Ordering Dr: Brenda rAaujo MD PROCEDURE: BIOPSY/INJ OR NEEDLE PLACEMENT 12/05/2024 [...] core biopsy. Pathology results pending. Reading Location: [place] [address] CC: VEHICLE INSURANCE AGENT-C Mariela Olson; Dr. Brenda Araujo MD ~ Customer Advisor Specialist: Signed [facility]05-04-2025 Radiology Diagnostic study [facility]04-22-2025 Discharge summary Author Neville Jang [facility] Note Date/Time November 20, 2024 1:2 2pm [facility] Medical Records Department [address] [place] [address] Instructions for Home/Discharge Instructions 11/20/24 1241 MR#: [id number] Acct: [id number] Name: JARED RAYMOND Rep #:[id number] : 1945 79 From: Neville Jang DO [...] Selam Craig NP, CHRISTEL-C [Med Staff - [facility] Practice Prof] - See Referral Note (Theoffice will call you to confirm an appointment time) Disposition Disposition (needs filled in before D/C Order can be placed): Home, Self Care 11/20/24 1322<Electronically signed by Neville Jang DO>Neville Jang DO CC: CHRISTEL-C Mariela Olson; Dr. Kelvin Schrader MD ~ Signed [facility] Work Phone: 1(309) 616-383304-22-2025 Consult note [facility] Medical Records Department [address] [place] [address] Counseling Note - Pharmacy 11/20/24 1342 MR#: [id number] Acct: [id number] Name: JARED RAYMOND Rep #:[id number] : 1945 79 From: Kush Daniel PCP: MARYAM Guerra Status:ADM IN Y Location: [facility] FB124-4 Pharmacy IN Med Reconciliation Pharmacy Service has performed discharge [...] Signature (if applicable): Date CC: ~ Signed [facility]04-22-2025 Discharge summary [facility] Medical Records Department [address] [place] [address] Instructions for Home/Discharge Instructions 11/20/24 1241 MR#: [id number] Acct: [id number] Name: JARED RAYMOND Rep #:[id number] : 1945 79 From: Neville Jang DO [...] 28 0RF Referrals / Follow Up: Shahram,Mariela, VEHICLE INSURANCE AGENT-C [Primary Care Provider] - Selam Craig NP, CHRISTEL-C [Med Staff - [facility] Practice Prof] - See Referral Note (Theoffice will call you to confirm an appointment time) Disposition Disposition (needs filled in before D/C Order can be placed): Home, Self Care 11/20/24 1322Mark Tereletsky DO CC: MARYAM Olson; Dr. Kelvin Schrader MD ~ Signed [facility]04-22-2025 [facility]04-22-2025 Consult note Author Keo Burgos [facility] Note Date/Time November 20, 2024 9:5 5am [facility] Medical Records Department [address] [place] [address] Anesthesia Postop Eval II 11/20/2452 MR#: [id number] Acct: [id number] Name: JARED RAYMOND Rep #:[id number] : 1945 79 From: Keo Burgos MD PCP: MARYAM Guerra Status:ADM IN Y Race: C Location: [facility] MS324 -1 Anesthesia Postop [...] MD Cosigner Signature: Date CC: ~ Signed [facility] Work Phone: 1(311) 875-797104-22-2025 Consult note [facility] Medical Records Department [address] [place], [place] [address] [address] Anesthesia Postop Eval II 11/20/2452 MR#: [id number] Acct: [id number] Name: JARED RAYMOND Rep #:[id number] : 1945 79 From: Keo Burgos MD PCP: MARYAM Guerra Status:ADM IN Y Race: C Location: [place] [address] Anesthesia Postop Eval I Sum Postop Eval [...] MD Cosigner Signature: Date CC: ~ Signed [facility]04-22-2025 Procedure note [facility] Medical Records Department [address] [place] [address] Colonoscopy Report MR#: [id number] Acct: [id number] Name: JARED RAYMOND Rep #:[id number] : 1945 79 From: Ari Silvestre DO [...] three hemostatic clips were successfully placed. 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 There was no bleeding at the end [...] the colonic anastomosis. Clips were placed. 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 - The examined portion of the ileum was normal. - No specimens collected. Recommendation: - [facility]. - Resume previous diet. - Continue present medications. - Repeat colonoscopy in 1 year to assess disease activity. Procedure Code(s): --- Professional --- 86355, Colonoscopy, flexible; with control of bleeding, any method 79709, 59, Colonoscopy, flexible; with directed submucosal injection(s), any substance CPT copyright 2021 [employer]. All rights reserved. The codes documented in this report are preliminary and upon training director review may be revised to meet current compliance requirements. Ari Silvestre DO 11/20/2024 7:56:55 AM This report has been signed electronically. Number of Addenda: 0 Note Initiated On: 11/19/2024 1:03 PM 11/20/24 0757 Date _ Ari Silvestre DO Cosigner Signature: Date (if indicated) CC: MARYAM Olson; Ari Silvestre DO ~ Date Dictated: 11/19/24 1303 Date Transcribed: Customer Advisor Specialist: RF Signed [facility]04-22-2025 Procedure note [facility] Medical Records Department [address] [place] [address] Operative Report - CC Letter MR#: [id number] Acct: [id number] Name: JARED RAYMOND Rep #:[id number] : 1945 79 From: Ari Silvestre DO [...] the colonic anastomosis. Clips were placed. 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 - The examined portion of the ileum [...] ~ Date Dictated: 11/19/24 1303 Date Transcribed: Customer Advisor Specialist: RF Signed [facility]04-21-2025 Progress note Author Neville Jang [facility] Note Date/Time November 19, 2024 6:2 0pm [facility] Medical Records Department [address] [place] [address] Progress Note - Hospitalist 11/19/246 MR#: [id number] Acct: [id number] Name: JARED RAYMOND Rep #:[id number] : 1945 79 From: Neville Jang DO PCP: MARYAM Guerra Status:ADM IN Location: [facility] [id number] Reason for Visit Reason for Visit: Diagnoses [...] 73.3 H, Lymph % (Auto) 14.2 L, Gates % (Auto) 10.0, Eos % (Auto) 1.9, [...] 35 minutes Charges/Coding Visit Charges Inpatient E&M: 53318 Subs Hosp L2 11/19/24 1820 <Electronically signed by Neville Jang DO> Cosigner Signature (if applicable): CC: ~ Signed [facility] Work Phone: 1(958) 722-529704-21-2025 Progress note [facility] Medical Records Department [address] [place] [address] Progress Note - Hospitalist 11/19/24 181 MR#: [id number] Acct: [id number] Name: JARED RAYMOND Rep #:[id number] : 1945 79 From: Neville Jagn DO PCP: MARYAM Guerra Status:ADM IN Location: [place] [address] Reason for Visit Reason for Visit: Diagnoses [...] 73.3 H, Lymph % (Auto) 14.2 L, Gates % (Auto) 10.0, Eos % (Auto) 1.9, [...] 35 minutes Charges/Coding Visit Charges Inpatient E&M: 56356 Subs Hosp L2 11/19/24 1820 Cosigner Signature (if applicable): CC: ~ Signed [facility]04-21-2025 Consult note Author Guerrero Miller [facility] Note Date/Time November 19, 2024 2:0 5pm [facility] Medical Records Department [address] [place] [address] Anesthesia Postop Eval I 11/19/24 1402 MR#: [id number] Acct: [id number] Name: CHRISJARED Kaitlin Rep #:[id number] : 1945 79 From: Guerrero Miller PCP: MARYAM Guerra Status:ADM IN Y Race: C Location: [place] [address] -1 Anesthesia: Postop Eval I Current Vital [...] document: Postop Eval 1 completed: Yes 11/19/24 1841 <Electronically signed by Guerrero Miller > Date _ Guerrero Miller Rossiignbrant Signature: Date CC: ~ Signed [facility] Work Phone: 1(819) 790-303004-21-2025 Consult note Author Ari Friend [facility] Note Date/Time November 19, 2024 12: 58pm [facility] Medical Records Department [address] [place] [address] Consultation - GI 11/19/24 1256 MR#: [id number] Acct: [id number] Name: JARED RAYMOND Rep #:[id number] : 1945 79 From: Ari Silvestre DO PCP: MARYAM Guerra Status:ADM IN [facility] Consult Data Date of Consult: 11/19/24 [...] presents for evaluation. He originally presented to [facility] ED on 04/11/2024 with c/o hematochezia [...] possible use of ivermectin for treatment. [facility] Medical History Diverticulosis Mediastinal lymphadenopathy Colon [...] 73.3 H, Lymph % (Auto) 14.2 L, Gates % (Auto) 10.0, Eos % (Auto) 1.9, [...] undergo colonoscopy. Charges/Coding Visit Charges Inpatient E&M: 09620 Init Hosp L3 11/19/24 7665 <Electronically signed by Ari Friend DO> Cosigner Signature (if applicable): CC: VEHICLE INSURANCE AGENT-C Mariela Olson; Dr. Kelvin Schrader MD~ Signed [facility] Work Phone: 1(274) 107-688304-21-2025 Consult note [facility] Medical Records Department [address] [place] [address] Anesthesia Postop Eval I 11/19/24 1402 MR#: [id number] Acct: [id number] Name: JARED RAYMOND Rep #:[id number] : 1945 79 From: Guerrero Miller PCP: MARYAM Guerra Status:ADM IN Y Race: C [facility]: [facility] -1 Anesthesia: Postop Eval I [...] Guerrero Vela Signature: Date CC: ~ Signed [facility]04-21-2025 Consult note Author Steven Ann [facility] Note Date/Time November 19, 2024 12: 03pm [facility] Medical Records Department [address] [place] [address] Pre-Anesthesia Evaluation 11/19/24 1202 MR#: [id number] Acct: [id number] Name: JARED RAYMOND Rep #:[id number] : 1945 79 From: Steven Ann MD PCP: Mariela Olson, VEHICLE INSURANCE AGENT-C Status:ADM IN Y Race: C Location: [place] [address] ASA Classification* ASA Classification ASA Classification: 3 [...] Procedure(s): colonoscopy Anesthesia History 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 Hx Hospitalization Yes: 06/09/24 BIOPSY OF LIVER [...] take am of surgery PONV PONV - 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: PONV - 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 Female HX of Motion Sickness HX of N/V After Surgery Non-Smoker Duration of Surgery greater than 60 minutes Number of Risk Factors PONV Score Height & Weight Height & Weight: Anesthesia: Height & Weight Height 5 ft 7.5 in 11/19/24 08:57 Weight: 68.946 kg 11/19/24 08:57 Body Mass Index (BMI) 23.4 11/19/24 08:57 Respiratory Assessment Respiratory Assessment - 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: Respiratory Tract Infection Hx - 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 Hx Respiratory Tract Infection No 11/18/24 21:04 STOP Sleep Apnea STOP Sleep Apnea - 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: STOP Sleep Apnea - 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 Hx Hypertension Yes 11/18/24 15:46 Hx Sleep [...] Tobacco Use History Tobacco Use History - 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: Tobacco Use History - 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 Tobacco Use Cigarettes 01/25/23 14:01 Smoking Status Former smoker 11/18/24 17:39 Hx Tobacco Use Yes: Cigar 11/18/24 15:46 Years Smoking Packs Smoked per Day Smoking Cessation Date was Yes - quit smoking within 15 11/18/24 15:46 within the last 15 years years Hx Smoking Cessation Date 04/01/23 11/18/24 15:46 Hx Smoking Cessation Yes 11/18/24 15:46 Counseling Hematologic Medial History Hematologic 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 Hx of Blood Transfusion Yes 11/18/24 15:46 [...] confused, unrespo /Reproduction History /Reproductive History - 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: /Reproductive Hx- 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 Hx Now No 11/18/24 21:04 Gestational Age [...] MD Cosigner Signature: Date CC: ~ Signed [facility] Work Phone: 1(179) 722-788104-21-2025 Consult note [facility] Medical Records Department [address] [place] [address] Consultation - GI 11/19/24 1256 MR#: [id number] Acct: [id number] Name: JARED RAYMOND Rep #:[id number] : 1945 79 From: Ari Friend DO PCP: Mariela Olson VEHICLE INSURANCE AGENTJoseC Status:ADM IN Location: [facility] RA407-0 HPI Consult Data Date of Consult: 11/19/24 [...] presents for evaluation. He originally presented to [facility] ED on 04/11/2024 with c/o hematochezia [...] possible use of ivermectin for treatment. [facility] Medical History Diverticulosis Mediastinal lymphadenopathy Colon [...] 73.3 H, Lymph % (Auto) 14.2 L, Gates % (Auto) 10.0, Eos % (Auto) 1.9, [...] undergo colonoscopy. Charges/Coding Visit Charges Inpatient E&M: 90821 Init Hosp L3 11/19/24 1258 Cosigner Signature (if applicable): CC: VEHICLE INSURANCE AGENT-C Mariela Olson; Dr. 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 Hx Hospitalization Yes: 06/09/24 BIOPSY OF LIVER [...] take am of surgery PONV PONV - 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: PONV - 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 Female HX of Motion Sickness HX of N/V After Surgery Non-Smoker Duration of Surgery greater than 60 minutes Number of Risk Factors PONV Score Height & Weight Height & Weight: Anesthesia: Height & Weight Height 5 ft 7.5 in 11/19/24 08:57 Weight: 68.946 kg 11/19/24 08:57 Body Mass Index (BMI) 23.4 11/19/24 08:57 Respiratory Assessment Respiratory Assessment - 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: Respiratory Tract Infection Hx - 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 Hx Respiratory Tract Infection No 11/18/24 21:04 STOP Sleep Apnea STOP Sleep Apnea - 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: STOP Sleep Apnea - 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 Hx Hypertension Yes 11/18/24 15:46 Hx Sleep [...] Tobacco Use History Tobacco Use History - 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: Tobacco Use History - 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 Tobacco Use Cigarettes 01/25/23 14:01 Smoking Status Former smoker 11/18/24 17:39 Hx Tobacco Use Yes: Cigar 11/18/24 15:46 Years Smoking Packs Smoked per Day Smoking Cessation Date was Yes - quit smoking within 15 11/18/24 15:46 within the last 15 years years Hx Smoking Cessation Date 04/01/23 11/18/24 15:46 Hx Smoking Cessation Yes 11/18/24 15:46 Counseling Hematologic Medial History Hematologic 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 Hx of Blood Transfusion Yes 11/18/24 15:46 [...] confused, unrespo /Reproduction History /Reproductive History - 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: /Reproductive Hx- 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 Hx Now No 11/18/24 21:04 Gestational Age [...] MD Cosigner Signature: Date CC: ~ Signed [facility]04-20-2025 History and physical note Author Kelvin Schrader [facility] Note Date/Time November 18, 2024 4:0 6pm [facility] Medical Records Department [address] [place] [address] H&P Exam - Hospitalist 11/18/24 1335 MR#: [id number] Acct: [id number] Name: JARED RAYMOND Rep #:[id number] : 1945 79 From: Kelvin rojas MD PCP: MARYAM Guerra Status:ADM IN Location: [facility] KP528-2 HPI - General General Date of Admission: [...] the possibility of proceeding with chemotherapy. [facility] Medical History Diverticulosis Mediastinal lymphadenopathy Colon [...] 71.9 H, Lymph % (Auto) 14.4 L, Gates % (Auto) 11.2 H, Eos % (Auto) [...] the large mesenteric mass. Reading Location: [facility] Assessment & Plan Assessment/Plan (1) GI bleed: [...] Multi Select Codes Visit Charges Visit Charges: 98226 Init Hosp L2 Hospitalists' Procedures Procedures: 22781 Advncd Care Plan 30 Min 11/18/24 1606 <Electronically signed by Kelvin Schrader MD> Cosigner Signature (if applicable): CC: MARYAM Olson; Dr. Kelvin Schrader MD~ Signed [facility] Work Phone: [phone] [id number] Discharge summary Author Radha Damon [facility] Note Date/Time November 18, 2024 2:5 3pm [facility] Medical Records Department [address] [place] [address] Emergency Department Summary 11/18/24 MR#: [id number] Acct: [id number] Name: JARED RAYMOND Rep #:[id number] : 1945 79 From: Radha [place] PCP: MARYAM Guerra Status:ADM IN Location: KS3 UR993-4 HPI <ONDINA Govea - Last Filed: 11/18/24 [...] denies any fevers, chills, or vomiting. [facility] <ONDINA Govea - Last Filed: 11/18/24 14:05> [facility] Medical History Diverticulosis Mediastinal lymphadenopathy Colon [...] <ONDINA Govea - Last Filed: 11/18/24 14:05> [facility] MDM Narrative Medical decision making narrative: [...] 71.9 H Lymph % (Auto) 14.4 L Gates % (Auto) 11.2 H Eos % (Auto) [...] to the large mesenteric mass. Reading Location: [id number] <Dr. Lazaro Sharp MD - Last Filed: 11/18/24 14:53> [facility] Narrative Medical decision making narrative: [...] 71.9 H Lymph % (Auto) 14.4 L Gates % (Auto) 11.2 H Eos % (Auto) [...] the large mesenteric mass. Reading Location: [facility] CT of the abdomen pelvis was reviewed [...] made aware of patient and admit to [facility]) Procedures <Dr. Lazaro Sharp MD - [...] of hypertension Disposition Disposition: Acute Care Hospital [facility] What to do if you have Problems For any increased pain, shortness of breath, bleeding, nausea or vomiting, chest pain, or any unexpected problems, contact your Primary Care Provider. Call [facility] ([phone]) or report to the closest Emergency Room. Call 911 if necessary. 11/18/24 1405 <Electronically signed by Radha NJ> Cosigner Signature (if applicable): 11/18/24 1453 <Electronically signed by Lazaro Sharp MD> CC: MARYAM Olson ~ Signed [facility] Work Phone: 1(754) 275-532304-20-2025 History and physical note [facility] Medical Records Department [address] [facility] [place] [address] H&P Exam - Hospitalist 11/18/24 1335 MR#: [id number] Acct: [id number] Name: JARED RAYMOND Rep #:[id number] : 1945 79 From: Kelvin rojas MD PCP: Mariela Shahram, VEHICLE INSURANCE AGENT-C Status:ADM IN Location: MS3 [id number] HPI - General General Date of Admission: [...] the possibility of proceeding with chemotherapy. [facility] Medical History Diverticulosis Mediastinal lymphadenopathy Colon [...] 71.9 H, Lymph % (Auto) 14.4 L, Gates % (Auto) 11.2 H, Eos % (Auto) [...] the large mesenteric mass. Reading Location: [facility] Assessment & Plan Assessment/Plan (1) GI bleed: [...] Multi Select Codes Visit Charges Visit Charges: 88353 Init Hosp L2 Hospitalists' Procedures Procedures: 62370 Advncd Care Plan 30 Min 11/18/24 1606 Cosigner Signature (if applicable): CC: MARYAM Olson; Dr. Kelvin Schrader MD~ Signed [facility]04-20-2025 Discharge summary [facility] Medical Records Department [address] [place] [address] Emergency Department Summary 11/18/24 MR#: [id number] Acct: [id number] Name: JARED RAYMOND Rep #:[id number] : 1945 79 From: Radha [place] PCP: MARYAM Guerra Status:ADM IN Location: [place] [address]-1 HPI HPI - GI History of Present [...] 71.9 H Lymph % (Auto) 14.4 L Gates % (Auto) 11.2 H Eos % (Auto) [...] to the large mesenteric mass. Reading Location: [facility] Narrative Medical decision making narrative: ulceration at [...] 71.9 H Lymph % (Auto) 14.4 L Gates % (Auto) 11.2 H Eos % (Auto) [...] the large mesenteric mass. Reading Location: [facility] CT of the abdomen pelvis was reviewed [...] made aware of patient and admit to [facility]) Procedures Other Procedures Procedure(s): Anoscopy was [...] of hypertension Disposition Disposition: Acute Care Hospital [facility] What to do if you have Problems For any increased pain, shortness of breath, bleeding, nausea or vomiting, chest pain, or any unexpected problems, contact your Primary Care Provider. Call [facility] ([phone]) or report to the closest Emergency Room. Call 911 if necessary. 11/18/24 1405 Cosigner Signature (if applicable): 11/18/24 2349 CC: MARYAM Olson ~ Signed [facility]04-20-2025 Discharge summary Author Radha Damon [facility] Note Date/Time November 18, 2024 2:5 3pm [facility] Medical Records Department [address] [place] [address] Emergency Department Summary 11/18/24 MR#: [id number] Acct: [id number] Name: JARED RAYMOND Rep #:[id number] : 1945 79 From: Radha NJ PCP: MARYAM Guerra Status:ADM IN [facility] <ONDINA Govea - Last Filed: 11/18/24 [...] Govea - Last Filed: 11/18/24 14:05> [facility] Medical History Diverticulosis Mediastinal lymphadenopathy Colon [...] <ONDINA Govea - Last Filed: 11/18/24 14:05> [facility] MDM Narrative Medical decision making narrative: [...] 71.9 H Lymph % (Auto) 14.4 L Gates % (Auto) 11.2 H Eos % (Auto) [...] to the large mesenteric mass. Reading Location: [id number] <Dr. Lazaro Sharp MD - Last Filed: 11/18/24 14:53> [facility] MDM Narrative Medical decision making narrative: [...] 71.9 H Lymph % (Auto) 14.4 L Gates % (Auto) 11.2 H Eos % (Auto) [...] the large mesenteric mass. Reading Location: [facility] CT of the abdomen pelvis was reviewed [...] made aware of patient and admit to [facility]) Procedures <Dr. Lazaro Sharp MD - [...] of hypertension Disposition Disposition: Acute Care Hospital [facility] What to do if you have Problems For any increased pain, shortness of breath, bleeding, nausea or vomiting, chest pain, or any unexpected problems, contact your Primary Care Provider. Call [facility] ([phone]) or report to the closest Emergency Room. Call 911 if necessary. 11/18/24 1405 <Electronically signed by Radha NJ> Cosigner Signature (if applicable): 11/18/24 1453 <Electronically signed by Lazaro Sharp MD> CC: MARYAM Olson ~ Signed [facility] Work Phone: 1(498) 558-651004-20-2025 Radiology Diagnostic study note [facility] Imaging Services [address] [place], [place] [id number] Abdomen/Pelvis W IV Cont ONLY MR#: [id number] Acct: [id number] Name: JARED RAYMOND Rep #: [id number] : 1945 M 79 From: Vanessa Rosado MD PCP: Mariela Olson NP-C Status: REG ER Study:Abdomen/Pelvis W IV Cont ONLY Date of E xam: 11/18/24 Exam# [id number] Ordering Dr: Radha Sharp MD PROCEDURE: ABDOMEN/PELVIS [...] the large mesenteric mass. Reading Location: [facility] CC: MARYAM Olson; Dr. Lazaro Sharp MD ~ Customer Advisor Specialist: Signed [facility]04-09-2025 Discharge summary [facility] Medical Records Department [address] [place] [address] Discharge Summary 11/07/24 1655 MR#: [id number] Acct: [id number] Name: JARED RAYMODN Rep #:[id number] : 1945 79 From: Stevie Harrington DO PCP: MARYAM Guerra Status:ADM IN Location: [place] [address] Providers Date of Admission: 11/06/24 Primary Care Physician: MARYAM Guerra Consultations 11/06/24 03:28 Consult: Gastroenterology Routine Consulting Provider: [facility] Reason for Consult: LGIB with BRBPR; [...] 70.4 H, Lymph % (Auto) 14.8 L, Gates % (Auto) 12.5 H, Eos % (Auto) [...] 28 0RF Referrals / Follow Up: Mariela Olosn NP-C [Primary Care Provider] - Within 2 Weeks Disposition Disposition (needs filled in before D/C Order can be placed): Home, Self Care Charges/Coding Visit Charges Inpatient E&M: 44206 Disch Hosp >30min 11/07/24 1707 Cosigner Signature (if applicable): CC: MARYAM Olson; Dr. Stevie Harrington DO~ Signed [facility]04-09-20[facility] Progress note Author Stevie Harrington [facility] Note Date/Time November 07, 2024 12:2 7pm [facility] Medical Records Department [address] [place] [address] Progress Note - Hospitalist 11/07/24 0727 MR#: [id number] Acct: [id number] Name: JARED RAYMOND Rep #:[id number] : 1945 79 From: Stevie Harrington DO PCP: MARYAM Guerra Status:ADM IN Location: [place] [address] Reason for Visit Reason for Visit: Diagnoses [...] 78.1 H, Lymph % (Auto) 9.1 L, Gates % (Auto) 11.9 H, Eos % (Auto) [...] 70.4 H, Lymph % (Auto) 14.8 L, Gates % (Auto) 12.5 H, Eos % (Auto) [...] prophylaxis: SCDs. Charges/Coding Visit Charges Inpatient E&M: 45196 Subs Hosp L2 11/07/24 4269 <Electronically signed by Stevie Harrington DO> Cosigner Signature (if applicable): CC: ~ Signed [facility] Work Phone: 1(618) 223-154304-09-2025 Progress note [facility] Medical Records Department [address] [place] [address] Progress Note - Hospitalist 11/07/24726 MR#: [id number] Acct: [id number] Name: JARED RAYMOND Rep #:[id number] : 1945 79 From: Stevie Harrington DO PCP: Mariela Olson VEHICLE INSURANCE AGENT-C Status:ADM IN Location: [place] [address] Reason for Visit Reason for Visit: Diagnoses [...] 78.1 H, Lymph % (Auto) 9.1 L, Gates % (Auto) 11.9 H, Eos % (Auto) [...] 70.4 H, Lymph % (Auto) 14.8 L, Gates % (Auto) 12.5 H, Eos % (Auto) [...] prophylaxis: SCDs. Charges/Coding Visit Charges Inpatient E&M: 89310 [facility] Hosp L2 11/07/24 1227 Cosigner Signature (if applicable): CC: ~ Signed [facility]04-08-2025 Consult note Author Keo Burgos [facility] Note Date/Time November 06, 2024 8:40 pm [facility] Medical Records Department [address] [place] [address] Anesthesia Postop Eval II 11/06/242038 MR#: [id number] Acct: [id number] Name: JARED RAYMOND Rep #:[id number] : 1945 79 From: Keo Burgos MD PCP: MARYAM Guerra Status:ADM IN Y Race: C Location: [place] [address] 3-1 Anesthesia Postop Eval I Sum Postop [...] MD Cosigner Signature: Date CC: ~ Signed [facility] Work Phone: 1(978) 291-476304-08-[address] [facility] Note Date/Time November 06, 2024 8:00 pm [facility] Medical Records Department [address] [place] [address] Anesthesia Postop Eval I 11/06/241948 MR#: [id number] Acct: [id number] Name: JARED RAYMOND Rep #:[id number] : 1945 79 From: Keo Burgos MD PCP: MARYAM Guerra Status:ADM IN Y Race: C Location: [place] [address] Anesthesia: Postop Eval I Current Vital Signs [...] MD Cosigner Signature: Date CC: ~ Signed [facility] Work Phone: 1(467) 483-193804-08-[address] 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 Hx Hospitalization Yes: 06/09/24 BIOPSY OF LIVER [...] sips of water?: Yes PONV PONV - 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: PONV - 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 Female HX of Motion Sickness HX of N/V After Surgery Non-Smoker Duration of Surgery greater than 60 minutes Number of Risk Factors PONV Score Height & Weight Height & Weight: Anesthesia: Height & Weight Height 5 ft 7 in 11/06/24 09:29 Weight: 72 kg 11/06/24 09:29 Body Mass Index (BMI) 24.8 11/06/24 05:23 Respiratory Assessment Respiratory Assessment - 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: Respiratory Tract Infection Hx - 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 Hx Respiratory Tract Infection Yes: Patient is recovering 06/22/24 12:11 from a cold/sinus congestion STOP Sleep Apnea STOP Sleep Apnea - 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: STOP Sleep Apnea - 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 Hx Hypertension Yes 11/06/24 13:19 Hx Sleep [...] Tobacco Use History Tobacco Use History - 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: Tobacco Use History - 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 Tobacco Use Cigarettes 01/25/23 14:01 Smoking Status Former smoker 11/06/24 13:51 Hx Tobacco Use Yes: Cigar 11/06/24 03:38 Years Smoking Packs Smoked per Day Smoking Cessation Date was Yes - quit smoking within 15 11/06/24 03:38 within the last 15 years years Hx Smoking Cessation Date 04/01/23 11/06/24 03:38 Hx Smoking Cessation Yes 11/06/24 03:38 Counseling Hematologic Medial History Hematologic 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 Hx of Blood Transfusion Yes 11/06/24 03:38 [...] confused, unrespo /Reproduction History /Reproductive History - 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: /Reproductive Hx- 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 Hx Now Gestational Age (in weeks): EDC: [...] MD Cosigner Signature: Date CC: ~ Signed [facility] Work Phone: 1(606) 165-668904-08-2025 Consult note Author Ari Friend [facility] Note Date/Time November 06, 2024 6:59 pm [facility] Medical Records Department [address] [place] [address] Consultation - GI 11/06/24 1854 MR#: [id number] Acct: [id number] Name: JARED RAYMOND Rep #:[id number] : 1945 79 From: Ari Silvestre DO PCP: MARYAM Guerra Status:ADM IN Location: [place] [address] HPI Consult Data Date of Consult: 11/06/24 [...] presents for evaluation. He originally presented to [facility] ED on 04/11/2024 with c/o hematochezia [...] MSI stable. Pathologic staging pT4 pN2b. [facility] Medical History Encounter for education Pre-op [...] % (Auto) Cancelled, Lymph % (Auto) Cancelled, Gates % (Auto) Cancelled, Eos % (Auto) Cancelled, [...] 76.8 H, Lymph % (Auto) 12.9 L, Gates % (Auto) 8.9, Eos % (Auto) 0.6, [...] 74.5 H, Lymph % (Auto) 13.7 L, Gates % (Auto) 9.8, Eos % (Auto) 1.4, [...] 78.1 H, Lymph % (Auto) 9.1 L, Gates % (Auto) 11.9 H, Eos % (Auto) [...] stable findings as described above. Reading Location[facility] Assessment & Plan Assessment/Plan (1) GI (gastrointestinal [...] flexible sigmoidoscopy. Charges/Coding Visit Charges Inpatient E&M: 61296 Init Hosp L3 11/06/24 185 <Electronically signed by Ari Silvestre DO> Cosigner Signature (if applicable): CC: MARYAM Olson~ Signed [facility] Work Phone: 1(376) 956-776804-08-2025 Consult note [facility] Medical Records Department [address] [place] [address] Anesthesia Postop Eval II 11/06/242038 MR#: [id number] Acct: [id number] Name: JARED RAYMOND Rep #:[id number] : 1945 79 From: Keo Burgos MD PCP: MARYAM Guerra Status:ADM IN Y Race: C Location: [place] [address] 3-1 Anesthesia Postop Eval I Sum Postop [...] MD Cosigner Signature: Date CC: ~ Signed [facility]04-08-2025 Consult note [facility] Medical Records Department [address] [place] [address] Anesthesia Postop Eval I 11/06/241948 MR#: [id number] Acct: [id number] Name: JARED RAYMOND Rep #:[id number] : 1945 79 From: Keo Burgos MD PCP: MARYAM Guerra Status:ADM IN Y Race: C Location: [address] Anesthesia: Postop Eval I Current Vital [...] Keo Vela Signature: Date CC: ~ Signed [facility]04-08-2025 Procedure note [facility] Medical Records Department [address] [place] [address] Colonoscopy Report MR#: [id number] Acct: [id number] Name: JARED RAYMOND Rep #:[id number] : 1945 79 From: Ari Silvestre DO [...] digital rectal examinations were normal. Hematin (altered blood/xudfmf-wqkepu-uvhi material) was found in the entire colon. There was evidence of a prior end-to-side ileo-colonic anastomosis in the ascending colon. This was patent and was characterized by ulceration and an intact staple line. The anastomosis was traversed. To stop active bleeding, one hemostatic clip was successfully placed. 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 There was no bleeding at the end [...] was poor. Procedure Code(s): --- Professional --- 03865, Colonoscopy, flexible; with control of bleeding, any method CPT copyright 2021 [employer]. All rights reserved. The codes documented in this report are preliminary and upon training director review may be revised to meet current compliance requirements. Ari Silvestre DO 11/06/2024 7:48:14 PM This report has been signed electronically. Number of Addenda: 0 Note Initiated On: 11/06/2024 6:51 PM 11/06/241947 Date _ Ari Nirmala Phelpsigner Signature: Date (if indicated) CC: VEHICLE INSURANCE AGENT-C Mariela Olson; Ari Nirmala, ~ Date Dictated: 11/06/241850 Date Transcribed: Customer Advisor Specialist: RF Signed [facility]04-08-2025 Consult note [facility] Medical Records Department [address] [place] [address] Pre-Anesthesia Evaluation 11/06/241858 MR#: [id number] Acct: [id number] Name: JARED RAYMOND Rep #:[id number] : 1945 79 From: Keo Burgos MD PCP: MARYAM Guerra Status:ADM IN Y Race: C Location: [place] [address] 3-1 ASA Classification* ASA Classification ASA Classification: [...] Flexible sigmoidoscopy Anesthesia History 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 Hx Hospitalization Yes: 06/09/24 BIOPSY OF LIVER [...] sips of water?: Yes PONV PONV - 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: PONV - 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 Female HX of Motion Sickness HX of N/V After Surgery Non-Smoker Duration of Surgery greater than 60 minutes Number of Risk Factors PONV Score Height & Weight Height & Weight: Anesthesia: Height & Weight Height 5 ft 7 in 11/06/24 09:29 Weight: 72 kg 11/06/24 09:29 Body Mass Index (BMI) 24.8 11/06/24 05:23 Respiratory Assessment Respiratory Assessment - 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: Respiratory Tract Infection Hx - 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 Hx Respiratory Tract Infection Yes: Patient is recovering 06/22/24 12:11 from a cold/sinus congestion STOP Sleep Apnea STOP Sleep Apnea - 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: STOP Sleep Apnea - 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 Hx Hypertension Yes 11/06/24 13:19 Hx Sleep [...] Tobacco Use History Tobacco Use History - 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: Tobacco Use History - 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 Tobacco Use Cigarettes 01/25/23 14:01 Smoking Status Former smoker 11/06/24 13:51 Hx Tobacco Use Yes: Cigar 11/06/24 03:38 Years Smoking Packs Smoked per Day Smoking Cessation Date was Yes - quit smoking within 15 11/06/24 03:38 within the last 15 years years Hx Smoking Cessation Date 04/01/23 11/06/24 03:38 Hx Smoking Cessation Yes 11/06/24 03:38 Counseling Hematologic Medial History Hematologic 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 Hx of Blood Transfusion Yes 11/06/24 03:38 [...] confused, unrespo /Reproduction History /Reproductive History - 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: /Reproductive Hx- 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 Hx Now Gestational Age (in weeks): EDC: [...] MD Cosigner Signature: Date CC: ~ Signed [facility]04-08-2025 Consult note [facility] Medical Records Department [address] [place] [address] Consultation - GI 11/06/24 1854 MR#: [id number] Acct: [id number] Name: JARED RAYMOND Rep #:[id number] : 1945 79 From: Ari Friend DO PCP: MARYAM Guerra Status:ADM IN Location: [place] [address] HPI Consult Data Date of Consult: 11/06/24 [...] presents for evaluation. He originally presented to [facility] ED on 04/11/2024 with c/o hematochezia [...] MSI stable. Pathologic staging pT4 pN2b. [facility] Medical History Encounter for education Pre-op [...] % (Auto) Cancelled, Lymph % (Auto) Cancelled, Gates % (Auto) Cancelled, Eos % (Auto) Cancelled, [...] Ovalocytes Cancelled, Stomatocytes Cancelled, Scott-Brookwood Bodies Cancelled, Greene Cells Cancelled, Bite Cells Cancelled, Crenated Cell [...] 76.8 H, Lymph % (Auto) 12.9 L, Gates % (Auto) 8.9, Eos % (Auto) 0.6, [...] 74.5 H, Lymph % (Auto) 13.7 L, Gates % (Auto) 9.8, Eos % (Auto) 1.4, [...] 78.1 H, Lymph % (Auto) 9.1 L, Gates % (Auto) 11.9 H, Eos % (Auto) [...] stable findings as described above. Reading [facility] Assessment & Plan Assessment/Plan (1) GI (gastrointestinal [...] s igmoidoscopy. Charges/Coding Visit Charges Inpatient E&M: 44677 Init Hosp L3 11/06/24 5297 Cosigner Signature (if applicable): CC: VEHICLE INSURANCE AGENTCatherine Olson~ Signed [facility]04-08-2025 Progress note Author Stevie Harrington [facility] Note Date/Time November 06, 2024 2:48 pm [facility] Medical Records Department [address] [place] [address] Progress Note - Hospitalist 11/06/24726 MR#: [id number] Acct: [id number] Name: CHRISJARED Rodrigues Rep #:[id number] : 1945 79 From: Stevie Harrington DO PCP: MARYAM Guerra Status:ADM IN Location: [place] [address] Reason for Visit Reason for Visit: Diagnoses [...] % (Auto) Cancelled, Lymph % (Auto) Cancelled, Gates % (Auto) Cancelled, Eos % (Auto) Cancelled, [...] Ovalocytes Cancelled, Stomatocytes Cancelled, Scott-Bro[place]wood Bodies Cancelled, Greene Cells Cancelled, Bite Cells Cancelled, Crenated Cell [...] 76.8 H, Lymph % (Auto) 12.9 L, Gates % (Auto) 8.9, Eos % (Auto) 0.6, [...] 74.5 H, Lymph % (Auto) 13.7 L, Gates % (Auto) 9.8, Eos % (Auto) 1.4, [...] stable findings as described above. Reading Location: [facility] Physical Exam Const alert and no [...] at bedside. Charges/Coding Visit Charges Inpatient E&M: 37049 Subs Hosp L2 11/06/24 1448 <Electronically signed by Stevie Harrington DO> Cosigner Signature (if applicable): CC: ~ Signed [facility] Work Phone: 1(632) 767-766704-08-2025 Progress note [facility] Medical Records Department [address] [facility] [place] [address] Progress Note - Hospitalist 11/06/24726 MR#: [id number] Acct: [id number] Name: JARED RAYMOND Rep #:[id number] : 1945 79 From: Stevie Harrington DO PCP: MARYAM Guerra Status:ADM IN Location: [place] [address] Reason for Visit Reason for Visit: Diagnoses [...] % (Auto) Cancelled, Lymph % (Auto) Cancelled, Gates % (Auto) Cancelled, Eos % (Auto) Cancelled, [...] 76.8 H, Lymph % (Auto) 12.9 L, Gates % (Auto) 8.9, Eos % (Auto) 0.6, [...] 74.5 H, Lymph % (Auto) 13.7 L, Gates % (Auto) 9.8, Eos % (Auto) 1.4, [...] stable findings as described above. Reading Location: [facility] Physical Exam Const alert and no [...] at bedside. Charges/Coding Visit Charges Inpatient E&M: 75147 Subs Hosp L2 11/06/24 8769 Cosigner Signature (if applicable): CC: ~ Signed [facility]04-08-2025 History and physical note Author Darrel Sanders [facility] Note Date/Time November 06, 2024 6:56 am [facility] Medical Records Department [address] [place] [address] H&P Exam - Hospitalist 11/06/24 0145 MR#: [id number] Acct: [id number] Name: JARED RAYMOND Rep #:[id number] : 1945 79 From: Darrel Qureshi DO PCP: MARYAM Guerra Status:ADM IN Location: [place] [address] 1 HPI - General General Date of [...] of syncopal episodes who now returns to [facility] ER complaining of watery diarrhea and LGIB. [...] expected to extend beyond 2 midnights. [facility] Medical History (Updated 11/06/24 @ 06:26 [...] % (Auto) Cancelled, Lymph % (Auto) Cancelled, Gates % (Auto) Cancelled, Eos % (Auto) Cancelled, [...] Ovalocytes Cancelled, Stomatocytes Cancelled, Scott-Bro[place]wood Bodies Cancelled, Greene Cells Cancelled, Bite Cells Cancelled, Crenated Cell [...] 76.8 H, Lymph % (Auto) 12.9 L, Gates % (Auto) 8.9, Eos % (Auto) 0.6, [...] 75 minutes. Charges/Coding Visit Charges Inpatient E&M: 82500 Init Hosp L3 11/06/24 0656 <Electronically signed by Darrel Carpenter DO> Cosigner Signature (if applicable): CC: MARYAM Olson; Dr. Darrel Carpenter DO~ Signed [facility] Work Phone: 1(270) 914-552204-08-2025 Discharge summary Author Harrison Linares [facility] Note Date/Time November 06, 2024 5:46 am [facility] Medical Records Department [address] [place] [address] Emergency Department Summary 11/06/24 MR#: [id number] Acct: [id number] Name: JARED RAYMOND Rep #:[id number] : 1945 79 From: Harrison Linares DO PCP: MARYAM Guerra Status:ADM IN Location: [address] History of Present Illness Chief Complaint: [...] blood per rectum he presents for evaluation. 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 Silvestre. He recommends that with his [...] H Lymph % (Auto) Cancelled 12.9 L Gates % (Auto) Cancelled 8.9 Eos % (Auto) [...] stable findings as described above. Reading Location[facility] Management Discussion w/another healthcare provider: Hospitalist and Manager Utilization Review Discharge Plan Dx/Rx/DC Orders Clinical Impression: GI (gastrointestinal bleed), Benign essential hypertension, Colon cancer, Hyponatremia, Diverticulosis Disposition Disposition: Acute Care Hospital [facility] Discharge Date/Time: 11/06/24 03:21 What to do if you have Problems For any increased pain, shortness of breath, bleeding, nausea or vomiting, chestpain, or any unexpected problems, contact your Primary Care Provider. Call [facility] ([phone]) or report to the closest Emergency Room. Call 911 if necessary. 11/06/24 0546 <Electronically signed by Harrison Linares DO> Cosigner Signature (if applicable): CC: VEHICLE INSURANCE AGENT-C Mariela Olson ~ Signed [facility] Work Phone: [phone] 341-130904-08-2025 History and physical note [facility] Medical Records Department [address] [place] [address] H&P Exam - Hospitalist 11/06/24 0145 MR#: [id number] Acct: [id number] Name: JARED RAYMOND Rep #:[id number] : 1945 79 From: Darrel Qureshi DO PCP: MARYAM Guerra Status:ADM IN Location: [place] [id number]- 1 HPI - General General Date of [...] of syncopal episodes who now returns to [facility] ER complaining of watery diarrhea and LGIB. [...] expected to extend beyond 2 midnights. [facility] Medical History (Updated 11/06/24 @ 06:[address] Darrel Carpneter DO) Encounter for education Pre-op testing Wears [...] % (Auto) Cancelled, Lymph % (Auto) Cancelled, Gates % (Auto) Cancelled, Eos % (Auto) Cancelled, [...] 76.8 H, Lymph % (Auto) 12.9 L, Gates % (Auto) 8.9, Eos % (Auto) 0.6, [...] 75 minutes. Charges/Coding Visit Charges Inpatient E&M: 51102 Init Hosp 11/06/24 0656 Cosigner Signature (if applicable): CC: MARYAM Olson; Dr. Darrel Carpenter, DO~ Signed [facility]04-08-2025 Discharge summary [facility] Medical Records Department [address] [place] [address] Emergency Department Summary 11/06/24 MR#: [id number] Acct: [id number] Name: JARED RAYMOND Rep #:[id number] : 1945 79 From: Harrison Linares DO PCP: MARYAM Guerra Status:ADM IN Location: [address] 1 HPI History of Present Illness [...] blood per rectum he presents for evaluation. 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 Silvestre. He recommends that with his [...] H Lymph % (Auto) Cancelled 12.9 L Gates % (Auto) Cancelled 8.9 Eos % (Auto) [...] Cancelled Toxic Vacuolation Cancelled Dohle Bodies Cancelled Deeap Rods Cancelled Platelet Estimate Cancelled Plt Morphology [...] Management Discussion w/another healthcare provider: Hospitalist and Manager Utilization Review Discharge Plan Dx/Rx/DC Orders Clinical Impression: GI (gastrointestinal bleed), Benign essential hypertension, Colon cancer, Hyponatremia, Diverticulosis Disposition Disposition: Acute Care Hospital [facility] Discharge Date/Time: 11/06/24 03:21 What to do if you have Problems For any increased pain, shortness of breath, bleeding, nausea or vomiting, chestpain, or any unexpected problems, contact your Primary Care Provider. Call [facility] ([phone]) or report tothe closest Emergency Room. Call 911 if necessary. 11/06/24 0546 Cosigner Signature (if applicable): CC: MARYAM Olson ~ Signed [facility]04-07-2025 Radiology Diagnostic study note [facility] Imaging Services [address] [place], [place] [address] CTA Abd/Pelvis W/WO Contrast MR#: [id number] Acct: [id number] Name: JARED RAYMOND Rep #: [id number] : 1945 M 79 From: Shakira Ramsey MD PCP: Mariela Olson NP-Jenifer Status: REG ER Study:CTA Abd/Pelvis W/WO Contrast Date of Ex am: 11/05/24 Exam# [id number] Ordering Dr: Erica Linares DO PROCEDURE: CTA [...] mesentery with limited distal opacification. Adrenal glands: Mshd-tsebvuu-tufk-right adrenal thickening. Kidneys/Ureters: Symmetric bilateral renal enhancement. [...] CC: MARYAM Olson; Harrison Linares DO ~ Customer Advisor Specialist: Signed [facility]04-04-2025 Telephone encounter Note* Telephone Encounter - Filomena Rodrigues - 11/02/2024 2:30 PM EDT Patient and his daughter stopped in to talk to oJlynn Frias. 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 Please call patients daughter Teresa [phone] [facility]04-04-2025 Miscellaneous Notes* Telephone Encounter - Filomena Rodrigues - 11/02/2024 2:30 PM EDT Patient and his daughter stopped in to talk to Jolynn Frias. 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 Please call patients daughter Teresa [phone] [facility] Discharge summary [facility] Medical Records Department [address] [place] [address] Emergency Department Summary 10/24/24 MR#: [id number] Acct: [id number] Name: JARED RAYMOND Rep #:[id number] : 1945 79 From: Jerry Yuen PCP: [...] Oxygen Delivery Method Room Air Room Air [facility] MDM Narrative Medical decision making narrative: HISTORY [...] History obtained from others: none Consults: none [facility] Narrative: The patient was initially hemodynamically [...] Discharge home This note was generated with RETAIL PRO dictation software. It may contain incorrectwords, spelling, [...] 77.1 H Lymph % (Auto) 12.7 L Gates % (Auto) 8.4 Eos % (Auto) 1.0 [...] Clarity Clear Urine pH 8.0 Ur Specific [place] 1.010 Urine Protein 15 H Urine Glucose [...] EVIDENCE OF TESTICULAR TORSION. Reading Location: [facility] Discharge Plan Triage Chief Complaint: Flank Pain [...] NP-C [Primary Care Provider] - Print Language: Italian What to do if you have Problems For any increased pain, shortness of breath, bleeding, nausea or vomiting, chestpain, or any unexpected problems, contact your Primary Care Provider. Call [facility] ([phone]) or report tothe closest Emergency Room. Call 911 if necessary. 10/24/242033 Cosigner Signature (if applicable): CC: MARYAM Olson ~ Signed [facility]03-26-2025 Radiology Diagnostic study note [facility] Imaging Services [address] [place], [place] [address] Testicular with Arterial Flow MR#: [id number] Acct: [id number] Name: JARED RAYMOND Rep #: [id number] : 1945 M 79 From: Vanessa Rosado MD PCP: MARYAM Guerra Status: REG ER Study:Testicular with Arterial Flow Date of E xam: 10/24/24 Exam# [id number] Ordering Dr: Robby Hightower DO PROCEDURE: TESTICULAR [...] SONOGRAPHIC EVIDENCE OF TESTICULAR TORSION. Reading Location: [id number] CC: VEHICLE INSURANCE AGENT-C Mariela Olson; Dr. Jerry Hightower, DO ~ Customer Advisor Specialist: Signed [facility]03-26-2025 Radiology Diagnostic study note [facility] Imaging Services [address] [place] [address] Abdomen/Pelvis W IV Cont ONLY MR#: [id number] Acct: [id number] Name: JARED RAYMOND Rep #: [id number] : 1945 M 79 From: Vanessa Rosado MD PCP: MARYAM Guerra Status: REG CLI Study:Abdomen/Pelvis W IV Cont ONLY Date of E xam: 10/24/24 Exam# [id number] Ordering Dr: Thang Hernandez MD PROCEDURE: ABDOMEN/PELVIS [...] excluded. Attentionon follow-up imaging recommended. Reading Location: [id number] CC: MARYAM Olson; Dr. Papi Hernandez MD ~ Customer Advisor Specialist: Signed [facility]03-26-2025 Discharge summary Author Jerry Hightower [facility] Note Date/Time October 24, 2024 8:3 4pm [facility] Medical Records Department [address] [place] [address] Emergency Department Summary 10/24/24 MR#: [id number] Acct: [id number] Name: JARED RAYMOND Rep #:[id number] : 1945 79 From: Jerry Yuen PCP: MARYAM Guerra Status:REG ER Location: ED HPI History of Present Illness Chief Complaint: Flank Pain [facility] Medical History (Updated 10/24/24 @ 19:59 [...] Oxygen Delivery Method Room Air Room Air [facility] MDM Narrative Medical decision making narrative: HISTORY [...] Discharge home This note was generated with Mobiveilation software. It may contain incorrectwords, spelling, and [...] 77.1 H Lymph % (Auto) 12.7 L Gates % (Auto) 8.4 Eos % (Auto) 1.0 [...] Clarity Clear Urine pH 8.0 Ur Specific [place] 1.010 Urine Protein 15 H Urine Glucose [...] EVIDENCE OF TESTICULAR TORSION. Reading Location: [facility] Discharge Plan Triage Chief Complaint: Flank Pain [...] MARYAM [Primary Care Provider] - Print Language: Italian What to do if you have Problems For any increased pain, shortness of breath, bleeding, nausea or vomiting, chestpain, or any unexpected problems, contact your Primary Care Provider. Call [facility] ([phone]) or report to the closest Emergency Room. Call 911 if necessary. 10/24/242033 <Electronically signed by Jerry Hightower DO> Cosigner Signature (if applicable): CC: VEHICLE INSURANCE AGENTCatherine Olson ~ Signed [facility] Work Phone: 1(161) 617-758303-19-2025 Evaluation note* Diagnosis Onset Date Resolution Status [...] metastasis present chronic December 04, 2024 11:24am [facility] Work Phone: 1(771) 701-825203-19-2025 Evaluation note* Diagnosis Onset Date Resolution Status [...] node metastasis present chronic January 09 3:16pm [facility] Work Phone: 1(995) 274-798902-07-2025 History of Present illness Narrative* Encounter Date [...] seldom monitors, usually can tell by his [employer] puzzles. (+) eye vitamin PO Vision seems [...] Referred by Julissa Yap O.D. at [facility]. Wears OTC readers. Straight lines appear wavy in OS. [facility] Work Phone: 1([phone]) 903-866301-08-2025 Evaluation note* Diagnosis Onset Date Resolution Status [...] 2:56am GI bleed acute November 18 12:59pm [facility] Work Phone: 1([phone]) 172-137601-08-2025 Evaluation note* Diagnosis Onset Date Resolution Status [...] 2024 12:59pm Rectal bleeding acute October 12:59pm [facility] Work Phone: [phone] Evaluation note* Diagnosis Onset Date Resolution Status [...] metastasis present chronic December 04, 2024 11:24am [facility] Work Phone: 1(549) 499-774112-18-2024 Evaluation note* Diagnosis Onset Date Resolution Status [...] lymph node chronic November 06, 2024 2:56am [facility] Work Phone: 1(884) 493-812112-18-2024 Evaluation note* Diagnosis Onset Date Resolution Status [...] lymph node chronic November 06, 2024 2:56am [facility] Work Phone: [phone] 611-952712-13-2024 Instructions* Date Instruction Additional Infor mation 7-8 [...] hemorrhage, left eye [facility] Work Phone: 1([phone]) [phone] Evaluation note* Diagnosis Onset Date Resolution Status [...] 19, 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 October 17, 2024 2:04pm [facility] Work Phone: 1([phone]) 686-191611-22-2024 [facility]11-18-2024 [facility]11-10-2024 [facility] 05-01-2024 [facility]09-27-2024 [facility]09-15-2024 [facility]07-25-2022 Miscellaneous Notes * Telephone Encounter - Michela Saucedo - 02/22/2022 3:14 PM EDT Patient arrived at the [facility] in [place], [place] requesting an appointment to become established with a new PCP in this region. The patient reports having similar symptoms in the right upper extremity that he experienced prior to his quintuple bypass surgery. He was provided the phone number and name of the cardiac surgeon and was scheduled to see Dr. Chapman 05/28/22. Please advise patient if he should follow up with information technology account manager prior to PCP visit. documented in this encounter[facility] History of Past illness Narrative* Problem Noted Date Resolved Date On mechanically assisted ventilation 07/19/2019 07/20/2019 Overview: Grade I airway A/P- WTE Stress hyperglycemia 07/19/2019 07/21/2019 Overview: H: Post op A/P-No h/o DM. [place]-operative insulin resistance and exacerbation of hyperglycemia. RHI drip per ICU protocol, transition to SSI documented as of this encounter (statuses as of 02/22/2022) [facility]* Clinical Note Date No Information [facility] Work Phone: Consult note Author Kush Daniel [facility] Note Date/Time November 20, 2024 1:4 3pm [facility] Medical Records Department [address] [place] [address] Counseling Note - Pharmacy 11/20/24 1342 MR#: [id number] Acct: [id number] Name: JARED RAYMOND Rep #:[id number] : 1945 79 From: Kush Daniel PCP: MARYAM Guerra Status:ADM IN Y Location: [place] [address] Pharmacy IN Med Reconciliation Pharmacy Service has performed discharge [...] Signature (if applicable): Date CC: ~ Signed [facility] Work Phone: Discharge summary* Clinical Note Date No Information [facility] Work Phone: Discharge summary Author Stevie Harrington [facility] Note Date/Time November 07, 2024 5:07 pm [facility] Medical Records Department [address] [place] [address] Discharge Summary 11/07/24 1655 MR#: [id number] Acct: [id number] Name: JARED RAYMOND Rep #:[id number] : 1945 79 From: Stevie Harrington DO PCP: MARYAM Guerra Status:ADM IN Location: [place] [id number]- 1 Providers Date of Admission: 11/06/24 Primary Care Physician: MARYAM Guerra Consultations 11/06/24 03:28 Consult: Gastroenterology Routine Consulting Provider: [facility] Reason for Consult: LGIB with BRBPR; [...] 70.4 H, Lymph % (Auto) 14.8 L, Gates % (Auto) 12.5 H, Eos % (Auto) [...] Self Care Charges/Coding Visit Charges Inpatient E&M: 26316 Disch Hosp >30min 11/07/24 1707 <Electronically signed by Stevie Harrington DO> Cosigner Signature (if applicable): CC: MARYAM Olson; Dr. Stevie Harrington DO~ Signed [facility] Work Phone: Evaluation noteNo assessment information available [facility] Work Phone: Evaluation note* Diagnosis Onset Date Resolution Status Acute alteration in mental status acute Elevated troponin acute Chronic hypertension chronic [facility] Work Phone: Evaluation note* Diagnosis Onset Date Resolution Status Elevated troponin acute Chronic hypertension chronic Hypertensive emergency witho ut congestive heart failure resolved [facility] Work Phone: Evaluation note* Type Assessment Date [...] begin a bowel regimen which will include umta-qzo-olpnsyz medicine such as senna, Colace and MiraLAX. Please return to the emergency department if your symptoms change or worsen. 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 anation Advance Directive(s) 07/18/2019 4:40 PM Advance Directive(s) 07/12/2019 2:31 PM Advance Directive(s) 05/14/2019 8:30 AM Advance Directive Response Recorded Date/ Time Advance Directives No October 31 11:26am Living Will Yes March 06, 2018 2:30pm Power of Department Coordinator No March 06 2:30pm Advance Directive Response Recorded Date/ Time Advance Directives No October 31 10:26am Living Will Yes August 15 6:13pm Power of Department Coordinator Yes August 15, 2023 6:13pm Name of Medical Power of Department Coordinator Spring Raymond August 15, 2023 6:13pm Advance Directive Response Recorded Date/ Time Name of Medical Power of Department Coordinator SPRING RAYMOND August 15, 2023 11:26pm Advance Directives No October 31 11:26am Living Will No December 11, 2023 2 :44am Power of Department Coordinator No December 11, 2023 2:44am Directive Yes / No Effective Date File Name No Information Advance Directive Response Recorded Date/ Time Living Will Yes April 12, 2024 2:59am Do you have a Healthcare Power of Department Coordinator? Yes April 12, 2024 2:59am Living Will Yes April 27, 2024 2:58pm Do you have a Healthcare Power of Department Coordinator? Yes April 27, 2024 2:58pm Living Will Yes October 24, 2024 6:01pm Do you have a Healthcare Power of Department Coordinator? Yes October 24, 2024 6:01pm Name of Medical Power of Department Coordinator October 24, 2024 6:01pm Advance Directives No October 31 11:26am Advance Directive Response Recorded Date/ Time Living Will Yes April 12, 2024 2:59am Do you have a Healthcare Power of Department Coordinator? Yes April 12, 2024 2:59am Living Will Yes April 27, 2024 2:58pm Do you have a Healthcare Power of Department Coordinator? Yes April 27, 2024 2:58pm Living Will Yes October 24, 2024 6:01pm Do you have a Healthcare Power of Department Coordinator? Yes October 24, 2024 6:01pm Name of Medical Power of Department Coordinator October 24, 2024 6:01pm Living Will No November 05, 2024 10:42pm Do you have a Healthcare Power of Department Coordinator? No November 05, 2024 10:42pm Advance Directives No October 31 11:26am Advance Directive Response Recorded Date/ Time Living Will Yes April 12, 2024 2:59am Do you have a Healthcare Power of Department Coordinator? Yes April 12, 2024 2:59am Living Will Yes April 27, 2024 2:58pm Do you have a Healthcare Power of Department Coordinator? Yes April 27, 2024 2:58pm Living Will Yes October 24, 2024 6:01pm Do you have a Healthcare Power of Department Coordinator? Yes October 24, 2024 6:01pm Name of Medical Power of Department Coordinator October 24, 2024 6:01pm Living Will No November 06, 2024 3:38am Do you have a Healthcare Power of Department Coordinator? No November 06, 2024 3:38am Advance Directives No October 31 11:26am Advance Directive Response Recorded Date/ Time Living Will Yes April 12, 2024 2:59am Do you have a Healthcare Power of Department Coordinator? Yes April 12, 2024 2:59am Living Will Yes April 27, 2024 2:58pm Do you have a Healthcare Power of Department Coordinator? Yes April 27, 2024 2:58pm Living Will No November 18, 2024 10:49am Do you have a Healthcare Power of Department Coordinator? No November 18, 2024 10:49am Living Will Yes October 24, 2024 6:01pm Do you have a Healthcare Power of Department Coordinator? Yes October 24, 2024 6:01pm Name of Medical Power of Department Coordinator October 24, 2024 6:01pm Living Will No November 06, 2024 3:38am Do you have a Healthcare Power of Department Coordinator? No November 06, 2024 3:38am Advance Directives No October 31 11:26am Advance Directive Response Recorded Date/ Time Living Will Yes April 12, 2024 2:59am Do you have a Healthcare Power of Department Coordinator? Yes April 12, 2024 2:59am Living Will Yes April 27, 2024 2:58pm Do you have a Healthcare Power of Department Coordinator? Yes April 27, 2024 2:58pm Living Will No November 18, 2024 3:46pm Do you have a Healthcare Power of Department Coordinator? No November 18, 2024 3:46pm Living Will Yes October 24, 2024 6:01pm Do you have a Healthcare Power of Department Coordinator? Yes October 24, 2024 6:01pm Name of Medical Power of Department Coordinator October 24, 2024 6:01pm Living Will No November 06, 2024 3:38am Do you have a Healthcare Power of Department Coordinator? No November 06, 2024 3:38am Advance Directives No October 31 11:26am Advance Directive Response Recorded Date/ Time Living Will Yes April 12, 2024 2:59am Do you have a Healthcare Power of Department Coordinator? Yes April 12, 2024 2:59am Living Will Yes April 27, 2024 2:58pm Do you have a Healthcare Power of Department Coordinator? Yes April 27, 2024 2:58pm Living Will No November 18, 2024 3:46pm Do you have a Healthcare Power of Department Coordinator? No November 18, 2024 3:46pm Living Will Yes October 24, 2024 6:01pm Do you have a Healthcare Power of Department Coordinator? Yes October 24, 2024 6:01pm Name of Medical Power of Department Coordinator October 24, 2024 6:01pm Living Will No November 06, 2024 3:38am Do you have a Healthcare Power of Department Coordinator? No November 06, 2024 3:38am Living Will No January 14, 2025 9:01am Do you have a Healthcare Power of Department Coordinator? No January 14, 2025 9:01am Advance Directives [...] November 20, 2024 1:2 2pm F/U FROM [facility] TO DR Olivares October 10:59am RE-EVALUATE [...] November 20, 2024 1:2 2pm F/U FROM [facility] TO DR Olivares October 10:59am RE-EVALUATE [...] abuse patient.[facility] the event this information is protected by the Federal Confidentiality of Alcohol and Drug Abuse Patient Records regulations: The Federal rules restrict any use of the information to criminally investigate or prosecute any alcohol or drug abuse patient.[facility] Reason for Visit (unrecogniz ed section and content) Reason Comments Patient Question Care Teams (unrecognized sec tion and content) 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 Neville Islas DO Family Provider Active Mariela Shahram , VEHICLE INSURANCE AGENT-C Primary Care Provider Active Team Status: Inactive [...] Member Role Status Dates Mariela Olson , VEHICLE INSURANCE AGENT-C Primary Care Provider Active Team Status: Inactive Member Role Status Dates Mariela Olson , VEHICLE INSURANCE AGENT-C Primary Care Provider Active Start: July 04, 2024 End: July 04, 2024 Mariela Olson , VEHICLE INSURANCE AGENT-C Referring Provider Active St art: July 04, 2024 End: July 04, 2024 Dr. Papi Hernandez MD Attending Provider Active S tart: July 04, 2024 End: July 04, 2024 Team Status: Inactive Member Role Status Dates Mariela Olson , VEHICLE INSURANCE AGENT-C Primary Care Provider Active Start: July 18, 2024 End: July 18, 2024 Mariela Olson , VEHICLE INSURANCE AGENT-C Referring Provider Active St art: July 18, 2024 End: July 18, 2024 Selam Craig NP, VEHICLE INSURANCE AGENT-C Attending Provider Active Start: July 18, 2024 End: July 18, 2024 Team Status: Inactive Member Role Status Dates Marielabruce Olson , VEHICLE INSURANCE AGENT-C Primary Care Provider Active Start: August 08, 2024 End: August 08, 2024 Mariela Olson , VEHICLE INSURANCE AGENT-C Referring Provider Active St art: August 08, 2024 End: August 08, 2024 Dr. Papi Hernandez MD Attending Provider Active S tart: August 08, 2024 End: August 08, 2024 Team Status: Inactive Member Role Status Dates Mariela Shahram , VEHICLE INSURANCE AGENT-C Primary Care Provider Active Start: September 05, 2024 End: September 05, 2024 Mariela Olson , VEHICLE INSURANCE AGENT-C Attending Provider Active St art: September 05, 2024 End: September 05, 2024 Team Status: Inactive Member Role Status Dates Marielabruce Olson , VEHICLE INSURANCE AGENT-C Primary Care Provider Active Start: October 17, 2024 End: October 17, 2024 Mariela Olson , VEHICLE INSURANCE AGENT-C Referring Provider Active St art: October 17, 2024 End: October 17, 2024 Malinda Webster VEHICLE INSURANCE AGENT, VEHICLE INSURANCE AGENT-C Attending Provider Active S tart: October 17, 2024 End: October 17, 2024 Team Status: Active Member Role Status Dates Mariela Olson , VEHICLE INSURANCE AGENT-C Primary Care Provider Active Start: October 17, 2024 Malinda Webster VEHICLE INSURANCE AGENT, VEHICLE INSURANCE AGENT-C Attending Provider Active S tart: October 17, 2024 Malinda Webster VEHICLE INSURANCE AGENT, VEHICLE INSURANCE AGENT-C Referring Provider Active S tart: October 17, 2024 Team Status: Active Member Role Status Dates Mariela Olson , VEHICLE INSURANCE AGENT-C Primary Care Provider Active Start: October 24, 2024 Dr. Papi Hernandez MD Attending Provider Active S tart: October 24, 2024 Dr. Papi Hernandez MD Referring Provider Active S tart: October 24, 2024 Team Status: Inactive Member Role Status Dates Mariela Olson VEHICLE INSURANCE AGENT-C Primary Care Provider Active Start: October 24, 2024 End: October 24, 2024 Dr. Jerry Hightower DO Emergency Provider Active Start: October 24, 2024 End: October 24, 2024 Team Status: Inactive Member Role Status Dates Mariela Olson , VEHICLE INSURANCE AGENT-C Primary Care Provider Active Start: October 17, 2024 End: October 17, 2024 Malinda Webster VEHICLE INSURANCE AGENT, VEHICLE INSURANCE AGENT-C Attending Provider Active S tart: October 17, 2024 End: October 17, 2024 Malinda Webster VEHICLE INSURANCE AGENT, VEHICLE INSURANCE AGENT-C Referring Provider Active S tart: October 17, 2024 End: October 17, 2024 Team Status: Inactive Member Role Status Dates Mariela Olson , VEHICLE INSURANCE AGENT-C Primary Care Provider Active Start: October 24, 2024 End: October 24, 2024 Dr. Papi Hernandez MD Attending Provider Active S tart: October 24, 2024 End: October 24, 2024 Dr. Papi Hernandez MD Referring Provider Active S tart: October 24, 2024 End: October 24, 2024 Team Status: Inactive Member Role Status Dates Mariela Olson VEHICLE INSURANCE AGENT-C Primary Care Provider Active Start: October 24, 2024 End: October 24, 2024 Dr. Jerry Hightower DO Attending Provider Active Start: October 24, 2024 End: October 24, 2024 Dr. Jerry Hightower DO Emergency Provider Active Start: October 24, 2024 End: October 24, 2024 Team Status: Inactive Member Role Status Dates Mariela Olson , VEHICLE INSURANCE AGENT-C Primary Care Provider Active Start: October 31, 2024 End: October 31, 2024 Mariela Olson VEHICLE INSURANCE AGENT-C Referring Provider Active St art: October 31, 2024 End: October 31, 2024 Dr. Papi Hernandez MD Attending Provider Active S tart: October 31, 2024 End: October 31, 2024 Team Status: Active Member Role Status Dates Mariela Olson , VEHICLE INSURANCE AGENT-C Primary Care Provider Active Start: November 06, 2024 Dr. Harrison Linares , DO Emergency Provider Active Start: November 06, 2024 Dr. Darrel Carpenter , DO Admit Provider Active Start: November 06, 2024 Dr. Darrel Carpenter , DO Attending Provider Active Start: November 06, 2024 Team Status: Inactive Member Role Status Dates Mariela Olson , VEHICLE INSURANCE AGENT-C Primary Care Provider Active Start: November 06, [...] Member Role Status Dates Mariela Olson , VEHICLE INSURANCE AGENT-C Primary Care Provider Active Start: November 06, [...] Member Role Status Dates Mariela Olson , VEHICLE INSURANCE AGENT-C Primary Care Provider Active Start: November 07, [...] Member Role Status Dates Mariela Olson , VEHICLE INSURANCE AGENT-C Primary Care Provider Active Start: November 06, [...] Active Member Role Status Dates Mariela Olson VEHICLE INSURANCE AGENT-C Primary Care Provider Active Start: November 07, 2024 End: November 07, 2024 Dr. Adrian Flores MD Attending Provider Active S tart: November 07, 2024 End: November 07, 2024 Dr. Adrian Flores MD Referring Provider Active S tart: November 07, 2024 End: November 07, 2024 Team Status: Active Member Role Status Dates Mariela Olson VEHICLE INSURANCE AGENT-C Primary Care Provider Active Start: November 18, 2024 Dr. Lazaro Sharp MD Emergency Provider Active Sta rt: November 18, 2024 Dr. Kelvin Schrader MD Admit Provider Active Start: November 18, 2024 Dr. Kelvin Schrader MD Attending Provider Active Start: November 18, 2024 Dr. Kelvin Schrader MD Referring Provider Active Start: November 18, 2024 Team Status: Inactive Member Role Status Dates Mraiela Olson , VEHICLE INSURANCE AGENT-C Primary Care Provider Active Start: November 18, [...] Active Member Role Status Dates Mariela Olson VEHICLE INSURANCE AGENT-C Primary Care Provider Active Start: November 18, [...] Active Member Role Status Dates Mariela Olson VEHICLE INSURANCE AGENT-C Primary Care Provider Active Start: November 19, [...] Active Member Role Status Dates Mariela Olson VEHICLE INSURANCE AGENT-C Primary Care Provider Active Start: November 19, [...] Active Member Role Status Dates Mariela Olson VEHICLE INSURANCE AGENT-C Primary Care Provider Active Start: November 18, [...] Inactive Member Role Status Dates Mariela Olson VEHICLE INSURANCE AGENT-C Primary Care Provider Active Start: November 28, 2024 End: November 28, 2024 Mariela Olson NP-Jenifer Referring Provider Active St art: November 28, 2024 End: November 28, 2024 Dr. Brenda Araujo MD Attending Provider Active Start: November 28, 2024 End: November 28, 2024 Team Status: Inactive Member Role Status Dates Mariela Olson VEHICLE INSURANCE AGENT-C Primary Care Provider Active Start: November 28, 2024 End: November 28, 2024 Malinda Webster NP, VEHICLE INSURANCE AGENT-C Attending Provider Active S tart: November 28, 2024 End: November 28, 2024 Malinda Webster VEHICLE INSURANCE AGENT, VEHICLE INSURANCE AGENT-C Referring Provider Active S tart: November 28, 2024 End: November 28, 2024 Team Status: Active Member Role Status Dates Marielabruce Olson , VEHICLE INSURANCE AGENT-C Primary Care Provider Active Start: November 28, 2024 Dr. Adrian Flores MD Attending Provider Active S tart: November 28, 2024 Team Status: Inactive Member Role Status Dates Mariela Shahram , VEHICLE INSURANCE AGENT-C Primary Care Provider Active Start: November 30, 2024 End: November 30, 2024 Dr. Brenda Araujo MD Attending Provider Active Start: November 30, 2024 End: November 30, 2024 Dr. Brenda Araujo MD Referring Provider Active Start: November 30, 2024 End: November 30, 2024 Team Status: Inactive Member Role Status Dates Marielabruce Olson , VEHICLE INSURANCE AGENT-C Primary Care Provider Active Start: December 04, 2024 End: December 04, 2024 Mariela Olson , VEHICLE INSURANCE AGENT-C Referring Provider Active St art: December 04, 2024 End: December 04, 2024 Dr. Ari Silvestre DO Attending Provider Active Start: December 04, 2024 End: December 04, 2024 Team Status: Active Member Role Status Dates Mariela Olson , VEHICLE INSURANCE AGENT-C Primary Care Provider Active Start: December 05, 2024 Dr. Brenda Araujo MD Attending Provider Active Start: December 05, 2024 Dr. Brenda Araujo MD Referring Provider Active Start: December 05, 2024 Team Status: Inactive Member Role Status Dates Mariela Olson , VEHICLE INSURANCE AGENT-C Primary Care Provider Active Start: December 05, 2024 End: December 05, 2024 Dr. Brenda Araujo MD Attending Provider Active Start: December 05, 2024 End: December 05, 2024 Dr. 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 [facility] [employer] [facility]. provides no warranty or guarantee of the accuracy or completeness of information in this document.
--- OUTSIDE RECORDS SUMMARY | 2025-02-11 05:06 | XMS RPT_ITS | CCD ---
Author Organization [facility] Care Team Providers Care Dairy Equipment Specialist Name Role Phone Neville Islas DO Primary Care Provider Dr. Neville Islas Primary Care Provider [phone] Dr. Jerry Hightower Emergency Provider [phone] Dr. Darrel Carpenter Admit Provider Unavailabl e Dr. Darrel Carpenter Attending Provider Unavail able Dr. Darrel Carpenter Other Provider Unavailabl e Dr. Adrian Flores Attending Provider [phone] Darrel Carpenter Referring Provider Unavail able Dr. Stevie Umanzor Attending Provider Dr. Lucy Polanco Other Provider Dr. Karli Cruz Attending Provider Dr. Lucy Polanco Attending Provider Darrel Pringle MD Unavailable Unavailable Shahram SENIOR WATER RESOURCES ENGINEER-C, Mariela Primary Care Provider Shahram SENIOR WATER RESOURCES ENGINEER-C, Mariela Referring Provider [phone] Papi Hernandez MD Attending Provider Rafa SENIOR WATER RESOURCES ENGINEER-C, Selam Attending Provider Shahram SENIOR WATER RESOURCES ENGINEER-C, Mariela Attending Provider Darin SENIOR WATER RESOURCES ENGINEER-CMalinda Attending Provider Darin SENIOR WATER RESOURCES ENGINEER-C, Malinda Morillo Referring Provider Dr. Papi Hernandez MD Referring Provider Dr. Jerry Hightower DO Emergency Provider Dr. Jerry Hightower DO Attending Provider Shahram SENIOR WATER RESOURCES ENGINEER-C, [place] Primary Care Provider Shahram SENIOR WATER RESOURCES ENGINEER-C, Mariela Referring Provider Mary DAVIS, Dr. Turpin Attending Provider Vijay FARLEY, Dr. Terry Emergency Provider de Tommy DO, Dr. Rojo Admit Provider Unavail able de Tommy DO, Dr. Rojo Attending Provider Unav ailable de Tommy DO, Dr. Rojo Other Provider Unavail able Santappmarysol FARLEY, Dr. Hubbard Attending Provider Juany FARLEY, Dr. Hubbard Other Provider Friend , Dr. Chapman Attending Provider Shahram SENIOR WATER RESOURCES ENGINEER-C, [place] Primary Care Provider Shahram SENIOR WATER RESOURCES ENGINEER-C, Mariela Referring Provider Juany FARLEY, Dr. Hubbard [...] Dr. Neville Jang DO Other Provider Shahram SENIOR WATER RESOURCES ENGINEER-C, [place] Primary Care Provider Shahram SENIOR WATER RESOURCES ENGINEER-C, Mariela Referring Provider Mary DAVIS, Dr. Turpin Attending Provider Shahram SENIOR WATER RESOURCES ENGINEER-C, Mariela Attending Provider Roof SENIOR WATER RESOURCES ENGINEER-C, Malinda Morillo Attending Provider Roof SENIOR WATER RESOURCES ENGINEER-C, Malinda Morillo Referring Provider Mary DAVIS, Dr. Turpin Referring Provider Campbell FARLEY, Dr. Edwards Attending Provider Campbell DO, Dr. Edwards Emergency Provider Vijay FARLEY, Dr. Terry Emergency Provider de Tommy FARLEY, Dr. Rojo Admit Provider Unavail able de Tommy DO, Dr. Rojo Other Provider Unavail able Juany FARLEY, Dr. Hubbard Attending Provider Juany FARLEY, Dr. Hubbard Referring Provider Juany FARLEY, Dr. Hubbard Other Provider Friend , Dr. Chapman Attending Provider Mark DAVIS, Dr. Campbell Attending Provider Mark DAVIS, Dr. Campbell Referring Provider Aron DAVIS, Dr. Willis Emergency Provider Raciel DAVIS, Dr. Kelvin Vallejo Admit Provider Raciel DAVIS, Dr. Kelvin Vallejo Referring Provider Raciel DAVIS, Dr. Kelvin Vallejo Other Provider Dr. Neville Jang DO Attending Provider Raciel DAVIS, Dr. Kelvin Vallejo Attending Provider Dr. Neville Jang DO Other Provider Dr. Brenda Araujo MD Attending Provider Dr. Brenda Araujo MD Referring Provider Shahram SENIOR WATER RESOURCES ENGINEER-C, Mariela Primary Care Provider Shahram SENIOR WATER RESOURCES ENGINEER-C, Mariela Referring Provider Dr. Papi Hernandez MD Attending Provider Dr. Brenda Araujo MD Attending Provider Dr. Brenda Araujo MD Referring Provider Shahram SENIOR WATER RESOURCES ENGINEER-C, [place] Primary Care Provider Shahram SENIOR WATER RESOURCES ENGINEER-C, Mariela Referring Provider [phone] Papi Hernandez MD Attending Provider Shahram SENIOR WATER RESOURCES ENGINEER-C, [place] Primary Care Provider [phone] Neville Islas DO Primary Care Provider Darrel Pringle Attending Unavailable Julissa Yap Referring Unavailable Darrel Pringle Attending Unavailable Darrel Pringle Referring Unavailable Darrel Pringle Attending Unavailable Julissa Yap Referring Unavailable Darrel Pringle Attending Unavailable Julissa Yap Referring Unavailable Darrel Pringle Attending Unavailable Darrel Pringle Referring Unavailable Darrel Pringle Attending Unavailable Darrel Pringle Referring Unavailable Dr. Adrian Flores MD Other Provider [phone] Jerry Hightower Attending Unavailable Shahram, Mariela Primary Care Unavailable Shahram, Mariela Referring Unavailable Shahram, Mariela Attending Unavailable Shahram, [place] Primary Care Unavailable Shahram, [place] Primary Care Unavailable Darrel Carpenter Consulting Unavailable Darrel Carpenter Admitting Unavailable Stevie Harrington Attending Unavailable Darrel Carpenter Admitting Unavailable Darrel Carpenter Consulting Unavailable Shahram, Mariela Primary Care Unavailable Stevie Harrington Attending Unavailable Santana Francois Consulting Unavailable Shahram, Mariela Referring Unavailable Shahram, Mariela Primary Care Unavailable Papi Hernandez Attending Unavailable Shahram, Mariela Referring Unavailable Shahram, Mariela Primary Care Unavailable Papi Hernandez Attending Unavailable Du Thomas Attending Unavailable Shahram, Mariela Primary Care Unavailable Du Thomas Referring Unavailable Du Thomas Admitting Unavailable Keo Burgos Consulting Unavailable Du Thomas Consulting Unavailable Shahram, Mariela Referring Unavailable Shahram, Mariela Primary Care Unavailable Rafa SENIOR WATER RESOURCES ENGINEERSelam Attending Unavailable Neville Islas Primary Care Unavailable Neville Islas Attending Unavailable Neville Islas Referring Unavailable Shahram, Mariela Primary Care Unavailable Roof SENIOR WATER RESOURCES ENGINEER, Malinda H Referring Unavailable Roof SENIOR WATER RESOURCES ENGINEER, Malinda H Attending Unavailable Roof SENIOR WATER RESOURCES ENGINEER, Malinda H Attending Unavailable Roof SENIOR WATER RESOURCES ENGINEER, Malinda H Referring Unavailable Shahram, Mariela Primary Care Unavailable Shahram, Mariela Primary Care Unavailable Papi Hernandez Attending Unavailable Papi Hernandez Referring Unavailable Isckarus, Thaour Referring Unavailable Isckarus Mansour Attending Unavailable Shahram, Mariela Primary Care Unavailable Isckarus, Mansour Referring Unavailable Isckarus, Mansour Attending Unavailable Shahram, Mariela Primary Care Unavailable Mark, Adrian Attending Unavailable Mark, Alsip Referring Unavailable Shahram, Mariela Primary Care Unavailable Shahram, Mariela Attending Unavailable Shahram, Mariela Referring Unavailable Shahram, Mariela Primary Care Unavailable Mark, Adrian Attending Unavailable Mark, Alsip Referring Unavailable Shahram, Mariela Primary Care Unavailable Mark, Adrian Attending Unavailable Shahram, Mariela Primary Care Unavailable Shahram, Mariela Primary Care Unavailable Sunny Mancia Referring Unavailable Sunny Mancia Attending Unavailable Kelvin Schrader Referring Unavailable Kelvin Schrader Admitting Unavailable Kelvin Schrader Consulting Unavailable Neville Jang Attending Unavailable Shahram, Mariela Primary Care Unavailable Shahram, Mariela Primary Care Unavailable Serina Chengd Attending Unavailable Prosper Danette Referring Unavailable Len Staton Attending Unavailabl [...] Harrington Attending Unavailable Santana Francois Consulting Unavailable Stevie Harrington Consulting Unavailable Du Thomas Attending Unavailable Jopperi, Stevie Referring Unavailable Friend, Ari Attending Unavailable Lorraine Melendez Attending Unavailable Du Thomas Attending Unavailable Shahram, Mariela Primary Care Unavailable Du Thomas Consulting Unavailable Brown, Sunny Referring Unavailable Brown, Sunny Consulting Unavailable Shahram, Mariela Primary Care Unavailable Brown, Sunny Referring Unavailable Brown, Sunny Attending Unavailable Brown, Sunny Consulting Unavailable Mark, Adrian Consulting Unavailable Mark Adrian Attending Unavailable Mark, Alsip Referring Unavailable Shahram, Mariela Primary Care Unavailable Darrel Carpenter Attending Unavailable Asunciononis, Kelvin F Referring Unavailable Kojonesonis, Kelvin F Admitting Unavailable Neville Jang Attending Unavailable Raciel, Kelvin F Consulting Unavailable Shahram, Mariela Primary Care Unavailable [...] Primary Care Unavailable Brown, Sunny Referring Unavailable Sunny Mancia Attending Unavailable Shahram, Mariela Primary Care Unavailable Darrel Carpenter Consulting Unavailable Darrel Carpenter Attending Unavailable Darrel Carpenter Admitting Unavailable Juany, Stevie Consulting Unavailable Shahram, Mariela Attending Unavailable Shahram, Mariela Primary Care Unavailable Friend, Ari Attending Unavailable Jopperi, Stevie Referring Unavailable Juany, Stevie Attending Unavailable Vernon Schraderolas F Attending Unavailable Shahram, Mariela Referring Unavailable Brenda Araujo Attending Unavailable Shahram, Mariela Primary Care Unavailable Friend, Ari Attending Unavailable Shahram, Mariela Referring Unavailable Shahram, Mariela Primary Care Unavailable Lisandra Lazcano Attending Unavailable Neville Islas Referring Unavailable RoshanNeville laura Primary Care Unavailable Shahram, Mariela Referring Unavailable Shahram, Mariela Primary Care Unavailable Papi Hernandez Attending Unavailable Du Thomas Attending Unavailable Shahram, Mariela Referring Unavailable Shahram, Mariela Primary Care Unavailable Shahram, Mariela Referring Unavailable Shahram, Mariela Primary Care Unavailable Du Thomas Attending Unavailable Shahram, Mariela Referring Unavailable Shahram, Mariela Primary Care Unavailable Roof SENIOR WATER RESOURCES ENGINEER, Malinda Morillo Attending Unavailable Shahram, Mariela Referring Unavailable Shahram, Mariela Primary Care Unavailable Adrian Flores Attending Unavailable Du Thomas Attending Unavailable Shahram, Mariela Referring Unavailable Shahram, Mariela Primary Care Unavailable Friend, Ari Attending Unavailable Friend, Ari Attending Unavailable Shahram, Mariela Primary Care Unavailable Jopperi, Stevie Referring Unavailable Shahram, Mariela Primary Care Unavailable Shahram, Mariela Referring Unavailable PraPapi morillo Attending Unavailable Shahram, Mariela Referring Unavailable Brenda Araujo Attending Unavailable Shahram, Mariela Primary Care Unavailable Roof SENIOR WATER RESOURCES ENGINEER, Malinda Morillo Attending Unavailable Isckarus, Mansour Referring Unavailable Shahram, Mariela Primary Care Unavailable Shahram, Mariela Primary Care Unavailable Jerry Hightower Attending Unavailable Du Thomas Attending Unavailable Shahram, Mariela Referring Unavailable Shahram, Mariela Primary Care Unavailable Sunny Mancia Consulting Unavailable Dr. Neville Islas DO Attending Provider [phone] Dr. Ramirez Horne DO Admit Provider Dr. Ramirez Horne DO Attending Provider Allergies Allergy Classification Reported Allergen(s) Allergy Type Date of Onset Reaction(s) Facility (3 sources) fentaNYL Drug Allergy 5 Low blood pressure [facility] (1 source) cloNIDine Drug Allergy 4 [facility] Repository (1 source) fentaNYL Drug Allergy 5 [facility] Repository (1 source) Wheat preparation Drug Allergy 4 [facility] Repository Medications Current Medications Medication Drug Class(es) Dates Sig (Normalized) Sig (Original) 4 ml bevacizumab 25 mg/ml injection (1 source) Vascular Endothelial Growth Factor Inhibitor Start: 01-05-2023 Avastin 25 mg/mL intravenous solution Direct Patient Administration Only - Active cloNIDine hydrochloride 0.1 mg oral tablet (13 sources) Central alpha-2 Adrenergic Agonist Start: 06-08-2024 [...] 2018 12:00am take 1 tablet by sabra th once daily metoprolol succinate ER 25 mg tablet,extended release 24 hr take 1 tablet by oral route every day 25 MG - Active Comment on above: Take 1.5 tablets by mouth twice daily. (10 sources) Start: 06-10-2024 Start: 05-16-2024 End: 06-10-2024 Completed/Discontinued Medications Medication Drug Class(es) Dates Sig (Normalized) Sig (Original) acetaminophen 500 mg oral tablet (13 sources) Start: 05-01-2024 End: 05-16-2024 amLODIPine 5 [...] ml enoxaparin sodium 100 mg/ml prefilled syringe (13 sources) Low Molecular Weight Heparin Start: 05-01-2024 [...] tablets; neomycin sulfate 500 mg oral tablet (13 sources) Aminoglycoside Antibacterial Start: 04-20-2024 End: 05-01-2024 Start: 04-20-2024 End: 05-01-2024 Neomycin 500 mg tablet Disco ntinued 500 mg PO .COMPLEX April 20, 2024 12:00am May 01, 2024 9:15am 500 mg orally At 1:00pm take 2 neomycin tablets; at 3:00pm take 2 neomycin tablets; at 11:00pm take 2 neomycin tablets; oxyCODONE hydrochloride 5 mg oral tablet (20 sources) Opioid Agonist Start: 10-24-2024 End: 01-15-2025 Start: 10-24-2024 End: 11-28-2024 take 1 tablet by mouth every six hours as needed for pain Oxycodone 5 mg tablet Discontinued 5 mg PO EVERY 6 HOURS as needed for pain 28 October 24, 2024 November 28, 2024 11:07am potassium chloride 10 meq ex tended release oral tablet (20 sources) Start: 06-08-2024 End: 07-04-2024 Start: 04-23-2024 End: 04-25-2024 take 1 capsule by [facility] twice daily at mealtime potassium chloride ER 8 mEq capsule,extended release take 1 capsule by oral route 2 times every day with food 8 MEQ - Active simethicone 80 mg chewable t ablet (9 sources) Start: 11-07-2024 End: 11-18-2024 Start: 11-07-2024 End: 11-18-2024 take 1 tablet by mouth at bedtime Simethicone 80 mg Tablet,Chewable Discontinued 80 mg PO AFTER MEALS AND AT BEDTIME 0 November 07, 2024 12:00am November 18, 2024 1:13pm sodium chloride 1000 mg oral tablet (13 sources) Start: 05-01-2024 End: 06-08-2024 Problems Active Problems Problem Classification Problem Date Documented Date Episodic/Chronic Abdominal pain (20 sources) Right upper quadrant pain; Translations: [Right upper quadrant pain] Onset: 010 10-03-2009 Episodic Acute posthemorrhagic anemia (14 sources) Acute posthemorrhagic anemia; Translations: [Acute posthemorrhagic anemia] Onset: 024 04-23-2024 Episodic Administrative/soci al admission (20 sources) Discharge status; Translations: [Encounter for administrative examinations, unspecified] Onset: 019 07-18-2019 Episodic Blindness and vision defects (14 sources) Visual disturbance; Translations: [Unspecified visual disturbance] [...] Chronic Coronary atherosclerosis and other heart disease (17 sources) Coronary atherosclerosis; Translations: [Atherosclerotic heart disease of [place] coronary artery without angina pectoris] Onset: 019 07-23-2019 Chronic Coronary atherosclerosis and other heart disease (2 sources) Presence of aortocoronary bypass graft; Translations: [Presence of aortocoronary bypass graft] Onset: Episodic Crushing injury or internal injury (13 sources) Liver hematoma; Translations: [Contusion of liver, initial encounter] 06-08-2024 Episodic Deficiency and other anemia (20 sources) Anemia due to blood loss; Translations: [...] [Anemia, unspecified] Onset: Episodic Diverticulosis and diverticulitis (9 sources) Diverticular disease; Translations: [Diverticulosis of intestine, [...] Chronic Hypertension with complications and secondary hypertension (15 sources) Hypertensive emergency; Translations: [Hypertensive emergency] 08-23-2023 Chronic Lymphadenitis (20 sources) Mediastinal lymphadenopathy; Translations: [Localized enlarged lymph nodes] Onset: 025 06-12-2024 Episodic Other circulatory disease (18 sources) History of cerebrovascular accident; Translations: [Personal history of transient ischemic attack (TIA), and cerebral infarction without residual deficits] Onset: 019 07-23-2019 Episodic Other gastrointestinal disorders (2 sources) Burping; Translations: [Eructation] 01-13-2010 Episodic Other gastrointestinal disorders (2 sources) Abdominal bloating; Translations: [Abdominal distension (gaseous)] 01-13-2010 Episodic Other gastrointestinal disorders (13 sources) Mass of colon; Translations: [Other specified diseases of intestine] 05-10-2024 Episodic Other gastrointestinal disorders (8 sources) Hemorrhagic diarrhea ; Translations: [Diarrhea, unspecified] 11-18-2024 Episodic Other gastrointestinal disorders (1 source) Other fecal abnormalities; Translations: [Other fecal abnormalities] Onset: Episodic Other gastrointestinal disorders (1 source) Ascites; Translations: [Other ascites] 02-11-2025 Episodic Other liver diseases (1 source) Acute hepatic failure; Translations: [Acute and subacute hepatic failure without coma] 02-11-2025 Episodic Other nutritional; endocrine; and metabolic disorders (13 sources) Body mass index 25-29 - overweight; Translations: [Overweight] 04-23-2024 Episodic Other screening for suspected conditions (not mental disorders or infectious disease) (13 sources) Imaging result abnormal; Translations: [Abnormal findings on diagnostic imaging of other specified body structures] 05-31-2024 Chronic Other screening for suspected conditions (not mental disorders or infectious disease) (20 sources) Raised cardiac enzyme or marker; Translations: [Other specified abnormal findings of blood chemistry] Onset: 024 08-15-2023 Episodic Peripheral and visceral atherosclerosis (15 sources) Atherosclerosis of artery of lower limb; Translations: [Atherosclerosis of [place] arteries of extremities with intermittent claudication, bilateral legs] Onset: 024 04-23-2024 Chronic Comment on above: Arterial study 4: R LEONARD 0.84 with biphasic waveforms; L LEONARD 0.68 with bi/monophasic waveformsCTA 02/03/24: Residual codes; unclassified (16 sources) Tobacco use and exposure - finding; Translations: [Tobacco use] 08-16-2013 Episodic Residual codes; unclassified (15 sources) Altered mental status; Translations: [Altered mental status, unspecified] 08-15-2023 Episodic Residual codes; unclassified (1 source) Altered mental status, unspecified; Translations: [Altered mental status] 08-15-2023 Episodic Residual codes; unclassified (13 sources) Past history of procedure; Translations: [Other specified postprocedural states] 06-08-2024 Episodic Residual codes; unclassified (13 sources) History of partial resection of colon; [...] now completed this regimen. 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; Translations: [Retinal hemorrhage] Onset: Resolve d: 09-01-2022 Chronic Secondary malignancies (13 sources) Secondary malignant neoplastic disease; Translations: [Secondary malignant neoplasm of unspecified site] 10-24-2024 Chronic Secondary malignancies (20 sources) Secondary malignant neoplasm of liver; Translations: [Secondary malignant neoplasm of liver and intrahepatic bile duct] 11-28-2024 Chronic Secondary malignancies (20 sources) Regional lymph node metastasis present ; Translations: [Secondary and unspecified malignant neoplasm of lymph node, unspecified] 11-28-2024 Chronic Secondary malignancies (1 source) Secondary and unspecified malignant neoplasm of lymph node, unspecified; Translations: [Secondary and unspecified malignant neoplasm of lymph node, unspecified] Onset: Chronic Secondary malignancies (2 sources) Secondary malignant neoplasm of liver and intrahepatic bile duct; Translations: [Secondary malignant neoplasm of liver and intrahepatic bile duct] Onset: Chronic Secondary malignancies (2 sources) Secondary and unspecified malignant neoplasm of intra-abdominal lymph nodes; Translations: [Secondary and unspecified malignant neoplasm of intra-abdominal lymph nodes] Onset: Chronic Syncope (15 sources) Syncope; Translations: [Syncope and collapse] Onset: 024 06-15-2024 Episodic Unclassified (1 source) Transition of care; [...] and regimen due to unspecified reason] Onset: Unclassified (1 source) 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 Unclassified (1 source) Malignant neoplasm metastatic to liver Unclassified (1 source) Malignant neoplasm of colon Past or Other Problems Problem Classification Problem Date Documented Da te Episodic/Chronic Diabetes mellitus without complication (1 source) Metabolic [...] source) Overweight; Translations: [Overweight] Onset: 04-27-2024 Episodic Pleurisy; pneumothorax; pulmonary collapse (2 sources) [...] unspecified; Translations: [Dorsalgia, unspecified] Onset: 09-21-2024 Episodic Unclassified (4 sources) AMD (chief complaint) Onset: 03-30-2023 Resolved: 09-07-2024 Unclassified (1 source) Wet AMD OS (chief complaint) Onset: 12-21-2023 Unclassified (1 source) Wet AMD OS Dry AMD OD (chief complaint) Onset: 08-24-2023 Unclassified (1 source) AMD OU (chief complaint) Onset: 09-29-2022 Unclassified (1 source) new patient (chief complaint) Onset: 09-01-2022 Results Test Name Value Interpretation Reference Range Facility Absolute lymphocyte countOrd ered By: Harrison Linares on 02-10-2025 Lymphocytes Auto (Unsp spec) [#/Vol] 0.56 10*3/uL Low 0.83-4.51 [facility] Activated partial thrombopla stin time (aPTT) in platelet poor plasma by coagulation aOrdered By: Harrison Linares on 02-10-2025 aPTT Coag (PPP) [Time] 28.2 s 24.1-36.2 [facility] Amorphous sediment detection in urine sediment by light microscopyOrdered By: Harrison Linares on 02-10-2025 Amorphous sediment LM Ql (Urine sed) 1+ [facility] Anion gap in Serum or Plasma Ordered By: Harrison Linares on 02-10-2025 Anion gap [Moles/Vol] 13 mmol/L 5-15 [facility] Automated lymphocyte count a s percentage of total leukocytesOrdered By: Harrison Linares on 02-10-2025 Lymphocytes/100 WBC Auto (Unsp spec) 7.7 % Low 19-41 [facility] BUN/creatinine ratioOrdered By: Harrison Linares on 02-10-2025 Urea nitrogen/Creatinine [Mass ratio] 11.2 mg/mg 10-20 [facility] Basophil percentageOrdered B y: Harrison Linares on 02-10-2025 Basophils/100 WBC (Bld) 0.4 % 0-1 [facility] Bilirubin Test strip Ql (U)O rdered By: Harrison Linares on 02-10-2025 Bilirubin Ql (U) 3 mg/dL High Negative [facility] Bilirubin directOrdered By: Harrison Linares on 02-10-2025 Bilirubin.direct [Mass/Vol] 5.21 mg/dL High 0.00-0.30 [facility] Bilirubin, totalOrdered By: Harrison Linares on 02-10-2025 Bilirubin [Mass/Vol] 7.43 mg/dL High 0.00-1.30 [facility] Carbon dioxide, total [Moles /volume] in Central venous bloodOrdered By: Harrison Linares on 02-10-2025 CO2 [Moles/Vol] 19.0 mmol/L Low 21.0-32.0 [facility] Chloride assayOrdered By: Erica Linares on 02-10-2025 Chloride [Moles/Vol] 92 mmol/L Low 98-108 [facility] Eosinophil percentageOrdered By: Harrison Linares on 02-10-2025 Eosinophils/100 WBC (Bld) 1.1 % 0-5 [facility] Erythrocyte distribution wid th ratioOrdered By: Harrison Linares on 02-10-2025 Erythrocyte distribution width (RBC) [Ratio] 15.2 % High 11.6-14.6 [facility] Erythrocyte distribution wid th standard deviationOrdered By: Harrison Linares on 02-10-2025 Erythrocyte distribution width (RBC) [Ratio] 47.2 fl High 35.1-43.9 [facility] Glomerular filtration rate ( GFR) estimation/1.73 sq m using serum, plasma, or whole bOrdered By: Harrison Linares on 02-10-2025 GFR/1.73 sq M.predicted among non-blacks MDRD (S/P/Bld) [Vol rate/Area] 87 mL/min/{1.73_m2} >60 [facility] Hematocrit Auto (Bld) [Volum e fraction]Ordered By: Harrison Linares on 02-10-2025 Hematocrit (Bld) [Volume fraction] 30.3 % Low 40-54 [place] [facility] [facility] Hemoglobin measurementOrdere d By: Harrison Linares on 02-10-2025 Hemoglobin (Bld) [Mass/Vol] 10.3 g/dL Low 13.0-16.5 [facility] Immature granulocytes/100 WB C Auto (Bld)Ordered By: Harrison Linares on 02-10-2025 Immature granulocytes/100 WBC (Bld) 0.300 % 0.0-0.9 [facility] Ketones Test strip Ql (U)Ord ered By: Harrison Linares on 02-10-2025 Ketones Ql (U) Negative Negative [facility] MCV (mean corpuscular volume ) determinationOrdered By: Harrison Linares on 02-10-2025 MCV (RBC) [Entitic vol] 84.6 fL 80-94 [facility] Mean corpuscular hemoglobin (MCH) determinationOrdered By: Harrison Linares on 02-10-2025 MCH (RBC) [Entitic mass] 28.8 pg 27.0-32.0 [facility] Monocyte percentageOrdered B y: Harrison Linares on 02-10-2025 Monocytes/100 WBC (Bld) 12.4 % High 0-10 [facility] Mucus LM Ql (Urine sed)Order ed By: Harrison Linares on 02-10-2025 Mucus Ql (Urine sed) 0 SEEN /hpf [facility] Neutrophil percentageOrdered By: Harrison Linares on 02-10-2025 Neutrophils/100 WBC (Bld) 78.1 % High 47-70 [facility] Nitrite Test strip Ql (U)Ord ered By: Harrison Linares on 02-10-2025 Nitrite Ql (U) Negative Negative [facility] No Panel InformationOrdered By: Harrison Linares on 02-10-2025 132 U/L High <38 [facility] Platelet countOrdered By: Erica Linares on 02-10-2025 Platelets (Bld) [#/Vol] 266 10*3/uL 150-450 [facility] Potassium measurement (mass/ volume)Ordered By: Harrison Linares on 02-10-2025 Potassium (Unsp spec) [Mass/Vol] 3.9 mmol/L 3.3-5.1 [facility] Protein Test strip Ql (U)Ord ered By: Harrison Linares on 02-10-2025 Protein Ql (U) 30 mg/dl High Negative [facility] Prothrombin timeOrdered By: Harrison Linares on 02-10-2025 PT Coag (PPP) [Time] 13.6 s 11.7-14.9 [facility] RBC Auto (Bld) [#/Vol]Ordere d By: Harrison Linares on 02-10-2025 RBC (Bld) [#/Vol] 3.58 10*6/uL Low 4.6-6.2 [facility] Serum creatinine measurement (mass/volume)Ordered By: Harrison Linares on 02-10-2025 Creatinine [Mass/Vol] 0.87 mg/dL 0.70-1.20 [facility] Serum globulin measurementOr dered By: Harrison Linares on 02-10-2025 Globulin (S) [Mass/Vol] 2.7 g/dL 2.2-4.2 [facility] Serum glucose measurement (m ass/volume)Ordered By: Harrison Linares on 02-10-2025 Glucose [Mass/Vol] 120 mg/dL High 70-99 [facility] Serum or plasma alanine carrion otransferase (ALT) measurementOrdered By: Harrison Linares on 02-10-2025 ALT [Catalytic activity/Vol] 160 U/L High <47 [facility] Serum or plasma albumin shagufta urement (mass/volume)Ordered By: Harrison Linares on 02-10-2025 Albumin [Mass/Vol] 3.8 g/dL 3.4-4.8 [facility] Serum or plasma alkaline airam sphatase measurementOrdered By: Harrison Linares on 02-10-2025 ALP [Catalytic activity/Vol] 516 U/L High 40-129 [facility] Serum or plasma calcium shagufta urement (mass/volume)Ordered By: Harrison Linares on 02-10-2025 Calcium [Mass/Vol] 8.9 mg/dL 7.6-11.0 [facility] Serum or plasma urea nitroge n measurement (mass/volume)Ordered By: Harrison Linares on 02-10-2025 Urea nitrogen [Mass/Vol] 10 mg/dL 4-19 [facility] Sodium levelOrdered By: Dylan Linares on 02-10-2025 Sodium [Moles/Vol] 124 mmol/L Low 133-145 [facility] Squamous epithelial cells de tection in urine sediment by light microscopyOrdered By: Harrison Linares on 02-10-2025 Epithelial cells.squamous LM Ql (Urine sed) 0-5 SEEN /hpf 0-5 [facility] Total proteinOrdered By: Dewayne Linares on 02-10-2025 Protein [Mass/Vol] 6.5 g/dL 5.9-8.4 [facility] Urine clarityOrdered By: Dewayne Linares on 02-10-2025 Clarity (U) Cloudy Clear [facility] Urine color determinationOrd ered By: Harrison Linares on 02-10-2025 Color (U) Yellow Yellow [facility] Urine glucose detectionOrder ed By: Harrison Linares on 02-10-2025 Glucose Ql (U) Normal mg/dl Normal [facility] Urine leukocyte esterase det ection by dipstickOrdered By: Harrison Linares on 02-10-2025 Leukocyte esterase Test strip Ql (U) 25 /ul High Negative [facility] Urine pHOrdered By: Harrison wren on 02-10-2025 pH (U) 6.0 [pH] 5.0 - 8.0 [facility] Urine sediment bacteria coun t by microscopy (number/high power field)Ordered By: Harrison Linares on 02-10-2025 Bacteria LM.HPF (Urine sed) [#/Area] 0 /[HPF] None Seen [facility] Urine specific gravity measu rementOrdered By: Harrison Linares on 02-10-2025 Specific gravity (U) [Rel density] 1.015 1.002-1.030 [facility] Urine urobilinogen measureme ntOrdered By: Harrison Linares on 02-10-2025 Urobilinogen Ql (U) 1 mg/dl High Normal [facility] Venous blood ammonia measure mentOrdered By: Harrison Linares on 02-10-2025 Ammonia (P) [Moles/Vol] 25.6 umol/L 16-60 [facility] White blood cell (WBC) count Ordered By: Harrison Linares on 02-10-2025 WBC (Bld) [#/Vol] 7.3 10*3/uL 4.4-11.0 [facility] White blood cell countOrdere d By: Harrison Linares on 02-10-2025 White blood cell count 0-5 SEEN /hpf 0-5 [facility] Bilirubin Test strip Ql (U)O rdered By: Neville Islas on 02-07-2025 Bilirubin Ql (U) 1 mg/dL High Negative [facility] Ketones Test strip Ql (U)Ord ered By: Neville Islas on 02-07-2025 Ketones Ql (U) 5 mg/dl High Negative [facility] Nitrite Test strip Ql (U)Ord ered By: Neville Islas on 02-07-2025 Nitrite Ql (U) Negative Negative [facility] Protein Test strip Ql (U)Ord ered By: Neville Islas on 02-07-2025 Protein Ql (U) 30 mg/dl High Negative [facility] Urine clarityOrdered By: Yessi Islas on 02-07-2025 Clarity (U) Clear Clear [facility] Urine color determinationOrd ered By: Neville Islas on 02-07-2025 Color (U) Yellow Yellow [facility] Urine cultureOrdered By: Yessi Islas on 02-07-2025 Bacteria identified Cx Nom (U) Culture exhibits no growth. [facility] Urine glucose detectionOrder ed By: Neville Islas on 02-07-2025 Glucose Ql (U) Normal mg/dl Normal [facility] Urine leukocyte esterase det ection by dipstickOrdered By: Neville Islas on 02-07-2025 Leukocyte esterase Test strip Ql (U) Negative Negative [facility] Urine pHOrdered By: Neville barron on 02-07-2025 pH (U) 6.0 [pH] 5.0 - 8.0 [facility] Urine specific gravity measu rementOrdered By: Neville Islas on 02-07-2025 Specific gravity (U) [Rel density] 1.015 1.002-1.030 [facility] Urine urobilinogen measureme ntOrdered By: Neville Islas on 02-07-2025 Urobilinogen Ql (U) Normal mg/dl Normal [facility] 36on 02-04-2025 36 Spoke with patient t o schedule CTA 02/19 at 11:30 am. In scheduling, patient has Medicare Part A only. Reviewed with central scheduling and patient would have to pay 50% upfront. Spoke with and confirmed patient is self pay with medicare part A. Instructed will have membership secretary arrange for financial counseling/assistance with [facility] prior to any appts/tests/procedures. Routed to Clau Wesley to arrange and call patient back [facility] 01-31-2025 36 Left message for vanessa miller to call office back to schedule CT scan on 02/19 [place] [address] 01-29-2025 36 Patient scheduled in valve clinic on 02/19 for aortic stenosis, cath and echo completed by Dr. Flores's office. BMP completed 01/08/25 in media. 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 Will call patient to schedule same day as OV. Normal [facility] 01-28-2025 36 Chart made and SENIOR WATER RESOURCES ENGINEER ondina herr mailed [facility] 01-22-2025 36 VC appt made for 01/30 09/25 I need to make chart and mail SENIOR WATER RESOURCES ENGINEER packet [facility] Oncology Visit Reporton 12-30 Oncology Visit Report Normal [facility] Absolute lymphocyte countOrd ered By: Malinda Webster on 01-08-2025 Lymphocytes Auto (Unsp spec) [#/Vol] 0.70 10*3/uL Low 0.83-4.51 [facility] Anion gap in Serum or Plasma Ordered By: Malinda Webster on 01-08-2025 Anion gap [Moles/Vol] 12 mmol/L 5-15 [facility] Automated lymphocyte count a s percentage of total leukocytesOrdered By: Malinda Webster on 01-08-2025 Lymphocytes/100 WBC Auto (Unsp spec) 12.0 % Low 19-41 [facility] BUN/creatinine ratioOrdered By: Malinda Webster on 01-08-2025 Urea nitrogen/Creatinine [Mass ratio] 12.0 mg/mg - [facility] Basic Metabolic Profile (BMP )on 01-08-2025 BUN/CRE 12.0 RATIO Normal - [facility] Comment on above: Performed By: #### L 100.0100, L500.2500 ####[facility] [address], [address] Calcium [Mass/Vol] 9.3 mg/dL Normal 7.6-11.0 [facility] Comment on above: Performed By: #### L 100.0100, L500.2500 ####[facility] [address] [place], [address] Chloride [Moles/Vol] 96 mmol/L Low 98-108 [facility] Comment on above: Performed By: #### L 100.0100, L500.2500 ####[facility] [address] [place], [address] CO2 [Moles/Vol] 23.4 mmol/L Normal 21.0-32.0 [facility] Comment on above: Performed By: #### L 100.0100, L500.2500 ####[facility] [address] [place], [address] Creatinine [Mass/Vol] 0.97 mg/dL Normal 0.70-1.20 [facility] Comment on above: Performed By: #### L 100.0100, L500.2500 ####[facility] [address] [place], [address] GAP 12 Normal 5-15 [facility] Comment on above: Performed By: #### L 100.0100, L500.2500 ####[facility] [address] [place], [address] GFR/1.73 sq M.predicted among non-blacks MDRD (S/P/Bld) [Vol rate/Area] 79 mL/min/{1.73_m2} Normal >60 [facility] Comment on above: Result Comment: mL/m in/1.73m2 CKD-EPI Creatinine Equation (2020) Performed By: #### L 100.0100, L500.2500 ####[facility] [address] [place], [address] Glucose [Mass/Vol] 102 mg/dL High 70-99 [facility] Comment on above: Performed By: #### L 100.0100, L500.2500 ####[facility] [address] [place], [address] Potassium [Moles/Vol] 4.4 mmol/L Normal 3.3-5.1 [facility] Comment on above: Performed By: #### L 100.0100, L500.2500 ####[facility] [address] [place], [address] Sodium [Moles/Vol] 131 mmol/L Low 133-145 [facility] Comment on above: Performed By: #### L 100.0100, L500.2500 ####[facility] [address] [place], [address] Urea nitrogen [Mass/Vol] 12 mg/dL Normal 4-19 [facility] Comment on above: Performed By: #### L 100.0100, L500.2500 ####[facility] [address] [place], [address] Basophil percentageOrdered B y: Malinda Webster on 01-08-2025 Basophils/100 WBC (Bld) 0.2 % 0- [facility] CBC W/Diff, Automatedon 12-30 Absolute Lymph 0.70 X10 3/uL Low 0.83-4.51 [facility] Comment on above: Performed By: #### L 100.0100, L500.2500 ####[facility] [address] [place], [address] Absolute Neut 4.3 X10 3/uL Normal 2.0-7.7 [facility] Comment on above: Performed By: #### L 100.0100, L500.2500 ####[facility] [address] [place], [address] Basophils/100 WBC (Bld) 0.2 % Normal 0-1 [facility] Comment on above: Performed By: #### L 100.0100, L500.2500 ####[facility] [address] [place], [address] Eosinophils/100 WBC (Bld) 1.2 % Normal 0-5 [facility] Comment on above: Performed By: #### L 100.0100, L500.2500 ####[facility] [address] [place], [address] Erythrocyte distribution width (RBC) [Ratio] 12.7 % Normal 11.6-14.6 [facility] Comment on above: Performed By: #### L 100.0100, L500.2500 ####[facility] [address] [place], [address] Hematocrit (Bld) [Volume fraction] 32.6 % Low 40-54 [facility] Comment on above: Performed By: #### L 100.0100, L500.2500 ####[facility] [address] [place], [address] Hemoglobin (Bld) [Mass/Vol] 10.9 g/dL Low 13.0-16.5 [facility] Comment on above: Performed By: #### L 100.0100, L500.2500 ####[facility] [address] [place], [address] IG% 0.200 Normal 0.0-0.9 [facility] Comment on above: Result Comment: IG% - Immature Granulocytes (promyelocytes, myelocytes andmetamyelocytes) > 1% indicates that a LEFT SHIFT is Present. Performed By: #### L 100.0100, L500.2500 ####[facility] [address] [place], [address] Lymphocytes/100 WBC (Bld) 12.0 % Low 19-41 [facility] Comment on above: Performed By: #### L 100.0100, L500.2500 ####[facility] [address] [place], [address] MCH (RBC) [Entitic mass] 29.1 pg Normal 27.0-32.0 [facility] Comment on above: Performed By: #### L 100.0100, L500.2500 ####[facility] [address] [place], [address] MCHC (RBC) [Mass/Vol] 33.4 g/dL Normal 32-36 [facility] Comment on above: Performed By: #### L 100.0100, L500.2500 ####[facility] [address] [place], [address] MCV (RBC) [Entitic vol] 86.9 fL Normal 80-94 [facility] Comment on above: Performed By: #### L 100.0100, L500.2500 ####[facility] [address] [place], [address] Monocytes/100 WBC (Bld) 11.9 % High 0-10 [facility] Comment on above: Performed By: #### L 100.0100, L500.2500 ####[facility] [address] [place], [address] Neutrophils/100 WBC (Bld) 74.5 % High 47-70 [facility] Comment on above: Performed By: #### L 100.0100, L500.2500 ####[facility] [address] [place], [address] Nucleated RBC (Bld) [#/Vol] 0 10*3/uL Normal 0-5 [facility] Comment on above: Performed By: #### L 100.0100, L500.2500 ####[facility] [address] [place], [address] Platelet mean volume (Bld) [Entitic vol] 10.1 fL Normal 6.2-12.0 [facility] Comment on above: Performed By: #### L 100.0100, L500.2500 ####[facility] [address] [place], [address] Platelets (Bld) [#/Vol] 243 10*3/uL Normal 150-450 [facility] Comment on above: Performed By: #### L 100.0100, L500.2500 ####[facility] [address] [place], [address] RBC (Bld) [#/Vol] 3.75 10*6/uL Low 4.6-6.2 [facility] Comment on above: Performed By: #### L 100.0100, L500.2500 ####[facility] [address] [place], [address] RDW SD 40.5 fl Normal 35.1-43.9 [facility] Comment on above: Performed By: #### L 100.0100, L500.2500 ####[facility] [address] [place], [address] WBC (Bld) [#/Vol] 5.8 10*3/uL Normal 4.4-11.0 [facility] Comment on above: Performed By: #### L 100.0100, L500.2500 ####[facility] [address] [place], [address] Carbon dioxide, total [Moles /volume] in Central venous bloodOrdered By: Malinda Webster on 01-08-2025 CO2 [Moles/Vol] 23.4 mmol/L 21.0-32.0 [facility] Chloride assayOrdered By: Santa Webster on 01-08-2025 Chloride [Moles/Vol] 96 mmol/L Low 98-108 [facility] Eosinophil percentageOrdered By: Malinda Webster on 01-08-2025 Eosinophils/100 WBC (Bld) 1.2 % 0-5 [facility] Erythrocyte distribution wid th ratioOrdered By: Malinda Webster on 01-08-2025 Erythrocyte distribution width (RBC) [Ratio] 12.7 % 11.6-14.6 [facility] Erythrocyte distribution wid th standard deviationOrdered By: Malinda Webster on 01-08-2025 Erythrocyte distribution width (RBC) [Ratio] 40.5 fl 35.1-43.9 [facility] Glomerular filtration rate ( GFR) estimation/1.73 sq m using serum, plasma, or whole bOrdered By: Malinda Webster on 01-08-2025 GFR/1.73 sq M.predicted among non-blacks MDRD (S/P/Bld) [Vol rate/Area] 79 mL/min/{1.73_m2} >60 [facility] Hematocrit Auto (Bld) [Volum e fraction]Ordered By: Malinda Webster on 01-08-2025 Hematocrit (Bld) [Volume fraction] 32.6 % Low 40-54 [facility] Hemoglobin measurementOrdere d By: Malinda Webster on 01-08-2025 Hemoglobin (Bld) [Mass/Vol] 10.9 g/dL Low 13.0-16.5 [facility] Immature granulocytes/100 WB C Auto (Bld)Ordered By: Malinda Webster on 01-08-2025 Immature granulocytes/100 WBC (Bld) 0.200 % 0.0-0.9 [facility] MCV (mean corpuscular volume ) determinationOrdered By: Malinda Webster 01-08-2025 MCV (RBC) [Entitic vol] 86.9 fL 80-94 [facility] Mean corpuscular hemoglobin (MCH) determinationOrdered By: Malinda Webster on 01-08-2025 MCH (RBC) [Entitic mass] 29.1 pg 27.0-32.0 [facility] Monocyte percentageOrdered B y: Malinda Webster on 01-08-2025 Monocytes/100 WBC (Bld) 11.9 % High 0-10 [facility] Neutrophil percentageOrdered By: Malinda Webster on 01-08-2025 Neutrophils/100 WBC (Bld) 74.5 % High 47-70 [facility] Platelet countOrdered By: Santa Webster on 01-08-2025 Platelets (Bld) [#/Vol] 243 10*3/uL 150-450 [facility] Potassium measurement (mass/ volume)Ordered By: Malinda Webster on 01-08-2025 Potassium (Unsp spec) [Mass/Vol] 4.4 mmol/L 3.3-5.1 [facility] RBC Auto (Bld) [#/Vol]Ordere d By: Malinda Webster on 01-08-2025 RBC (Bld) [#/Vol] 3.75 10*6/uL Low 4.6-6.2 [facility] Serum creatinine measurement (mass/volume)Ordered By: Malinda Webster on 01-08-2025 Creatinine [Mass/Vol] 0.97 mg/dL 0.70-1.20 [facility] Serum glucose measurement (m ass/volume)Ordered By: Malinda Webster on 01-08-2025 Glucose [Mass/Vol] 102 mg/dL High 70-99 [facility] Serum or plasma calcium shagufta urement (mass/volume)Ordered By: Malinda Webster on 01-08-2025 Calcium [Mass/Vol] 9.3 mg/dL 7.6-11.0 [facility] Serum or plasma urea nitroge n measurement (mass/volume)Ordered By: Malinda Webster on 01-08-2025 Urea nitrogen [Mass/Vol] 12 mg/dL 4-19 [facility] Sodium levelOrdered By: Malinda Webster on 01-08-2025 Sodium [Moles/Vol] 131 mmol/L Low 133-145 [facility] White blood cell (WBC) count Ordered By: Malinda Webster on 01-08-2025 WBC (Bld) [#/Vol] 5.8 10*3/uL 4.4-11.0 [facility] Carcinoembryonic Antigenon 0 - CEA 47.8 ng/mL High 0.0-4.7 [facility] Comment on above: Order Comment: MALINDA WEBSTER ORDERED CBCD Result Comment: Nons mokers <3.9 Smokers <5.6[employer] Electrochemiluminescence Immunoassay(ECLIA)Values obtained with different assay methods or kitscannot be used interchangeably. Results cannot beinterpreted as absolute evidence of the presence orabsence of malignant disease.Performed at: [facility] [employer] [facility]T[place] [id number] [place], [place] [id number] Director: Jian Paredes PhD, Phone: [phone] Performed By: #### L 100.0100, L503.6550, L503.6030, L3100.2300, L500.4050 ####[facility] [address] [place], [address] Absolute lymphocyte countOrd ered By: [facility] on 12-14-2024 Lymphocytes Auto (Unsp spec) [#/Vol] 0.68 10*3/uL Low 0.83-4.51 [facility] Anion gap in Serum or Plasma Ordered By: Brenda Araujo on 12-14-2024 Anion gap [Moles/Vol] 12 mmol/L 5- [facility] Automated lymphocyte count a s percentage of total leukocytesOrdered By: [facility] on 12-14-2024 Lymphocytes/100 WBC Auto (Unsp spec) 9.9 % Low 19-41 [facility] BUN/creatinine ratioOrdered By: [facility] 12-14-2024 Urea nitrogen/Creatinine [Mass ratio] 11.3 mg/mg 10- [facility] Basophil percentageOrdered B y: Brenda Araujo on 12-14-2024 Basophils/100 WBC (Bld) 0.4 % 0- [facility] Bilirubin, totalOrdered By: [facility] on 12-14-2024 Bilirubin [Mass/Vol] 0.51 mg/dL 0.00-1.30 [facility] CBC W/Diff, Automatedon 11-29 Absolute Lymph 0.68 X10 3/uL Low 0.83-4.51 [facility] Comment on above: Order Comment: MALINDA WEBSTER ORDERED CBCD Performed By: #### L 100.0100, L503.6550, L503.6030, L3100.2300, L500.4050 ####[facility] [address] [place], [address] Absolute Neut 5.5 X10 3/uL Normal 2.0-7.7 [facility] Comment on above: Order Comment: MALINDA WEBSTER ORDERED CBCD Performed By: #### L 100.0100, L503.6550, L503.6030, L3100.2300, L500.4050 ####[facility] [address] [place], [address] Basophils/100 WBC (Bld) 0.4 % Normal 0-1 [facility] Comment on above: Order Comment: MALINDA WEBSTER ORDERED CBCD Performed By: #### L 100.0100, L503.6550, L503.6030, L3100.2300, L500.4050 ####[facility] [address] [place], [address] Eosinophils/100 WBC (Bld) 0.4 % Normal 0-5 [facility] Comment on above: Order Comment: MALINDA WEBSTER ORDERED CBCD Performed By: #### L 100.0100, L503.6550, L503.6030, L3100.2300, L500.4050 ####[facility] [address] [place], [address] Erythrocyte distribution width (RBC) [Ratio] 12.8 % Normal 11.6-14.6 [facility] Comment on above: Order Comment: MALINDA WEBSTER ORDERED CBCD Performed By: #### L 100.0100, L503.6550, L503.6030, L3100.2300, L500.4050 ####[facility] [address] [place], [address] Hematocrit (Bld) [Volume fraction] 31.4 % Low 40-54 [facility] Comment on above: Order Comment: MALINDA WEBSTER ORDERED CBCD Performed By: #### L 100.0100, L503.6550, L503.6030, L3100.2300, L500.4050 ####[facility] [address] [place], [address] Hemoglobin (Bld) [Mass/Vol] 10.8 g/dL Low 13.0-16.5 [facility] Comment on above: Order Comment: MALINDA WEBSTER ORDERED CBCD Performed By: #### L 100.0100, L503.6550, L503.6030, L3100.2300, L500.4050 ####[facility] [address] [place], [address] IG% 0.400 Normal 0.0-0.9 [facility] Comment on above: Order Comment: MALINDA WEBSTER ORDERED CBCD Result Comment: IG% - Immature Granulocytes (promyelocytes, myelocytes andmetamyelocytes) > 1% indicates that a LEFT SHIFT is Present. Performed By: #### L 100.0100, L503.6550, L503.6030, L3100.2300, L500.4050 ####[facility] [address] [place], [address] Lymphocytes/100 WBC (Bld) 9.9 % Low 19-41 [facility] Comment on above: Order Comment: MALINDA WEBSTER ORDERED CBCD Performed By: #### L 100.0100, L503.6550, L503.6030, L3100.2300, L500.4050 ####[facility] [address] [place], [address] MCH (RBC) [Entitic mass] 30.6 pg Normal 27.0-32.0 [facility] Comment on above: Order Comment: MALINDA WEBSTER ORDERED CBCD Performed By: #### L 100.0100, L503.6550, L503.6030, L3100.2300, L500.4050 ####[facility] [address] [place], [address] MCHC (RBC) [Mass/Vol] 34.4 g/dL Normal 32-36 [facility] Comment on above: Order Comment: MALINDA WEBSTER ORDERED CBCD Performed By: #### L 100.0100, L503.6550, L503.6030, L3100.2300, L500.4050 ####[facility] [address] [place], [address] MCV (RBC) [Entitic vol] 89.0 fL Normal 80-94 [facility] Comment on above: Order Comment: MALINDA WEBSTER ORDERED CBCD Performed By: #### L 100.0100, L503.6550, L503.6030, L3100.2300, L500.4050 ####[facility] [address] [place], [address] Monocytes/100 WBC (Bld) 8.6 % Normal 0-10 [facility] Comment on above: Order Comment: MALINDA WEBSTER ORDERED CBCD Performed By: #### L 100.0100, L503.6550, L503.6030, L3100.2300, L500.4050 ####[facility] [address] [place], [address] Neutrophils/100 WBC (Bld) 80.3 % High 47-70 [facility] Comment on above: Order Comment: MALINDA WEBSTER ORDERED CBCD Performed By: #### L 100.0100, L503.6550, L503.6030, L3100.2300, L500.4050 ####[facility] [address] [place], [address] Nucleated RBC (Bld) [#/Vol] 0 10*3/uL Normal 0-5 [facility] Comment on above: Order Comment: MALINDA WEBSTER ORDERED CBCD Performed By: #### L 100.0100, L503.6550, L503.6030, L3100.2300, L500.4050 ####[facility] [address] [place], [address] Platelet mean volume (Bld) [Entitic vol] 9.6 fL Normal 6.2-12.0 [facility] Comment on above: Order Comment: MALINDA WEBSTER ORDERED CBCD Performed By: #### L 100.0100, L503.6550, L503.6030, L3100.2300, L500.4050 ####[facility] [address] [place], [address] Platelets (Bld) [#/Vol] 312 10*3/uL Normal 150-450 [facility] Comment on above: Order Comment: MALINDA WEBSTER ORDERED CBCD Performed By: #### L 100.0100, L503.6550, L503.6030, L3100.2300, L500.4050 ####[facility] [address] [place], [address] RBC (Bld) [#/Vol] 3.53 10*6/uL Low 4.6-6.2 [facility] Comment on above: Order Comment: MALINDA WEBSTER ORDERED CBCD Performed By: #### L 100.0100, L503.6550, L503.6030, L3100.2300, L500.4050 ####[facility] [address] [place], [address] RDW SD 41.6 fl Normal 35.1-43.9 [facility] Comment on above: Order Comment: MALINDA WEBSTER ORDERED CBCD Performed By: #### L 100.0100, L503.6550, L503.6030, L3100.2300, L500.4050 ####[facility] [address] [place], [address] WBC (Bld) [#/Vol] 6.9 10*3/uL Normal 4.4-11.0 [facility] Comment on above: Order Comment: MALINDA WEBSTER ORDERED CBCD Performed By: #### L 100.0100, L503.6550, L503.6030, L3100.2300, L500.4050 ####[facility] [address] [place], [address] Absolute Neut Normal 2.0-7.7 [facility] Comment on above: Result Comment: CBCD ORDER ON OTHER REQ Performed By: #### L 100.0100 ####[facility] [address] [place], [address] HCT Normal 40-54 [facility] Comment on above: Result Comment: CBCD ORDER ON OTHER REQ Performed By: #### L 100.0100 ####[facility] [address] [place], [address] HGB Normal 13.0-16.5 [facility] Comment on above: Result Comment: CBCD ORDER ON OTHER REQ Performed By: #### L 100.0100 ####[facility] [address] [place], [address] MCH Normal 27.0-32.0 [facility] Comment on above: Result Comment: CBCD ORDER ON OTHER REQ Performed By: #### L 100.0100 ####[facility] [address] [place], [address] MCHC Normal 32-36 [facility] Comment on above: Result Comment: CBCD ORDER ON OTHER REQ Performed By: #### L 100.0100 ####[facility] [address] [place], [address] MCV Normal 80-94 [facility] Comment on above: Result Comment: CBCD ORDER ON OTHER REQ Performed By: #### L 100.0100 ####[facility] [address] [place], [address] NEUT% Normal 47-70 [facility] Comment on above: Result Comment: CBCD ORDER ON OTHER REQ Performed By: #### L 100.0100 ####[facility] [address] [place], [address] PLT Normal 150-450 [facility] Comment on above: Result Comment: CBCD ORDER ON OTHER REQ Performed By: #### L 100.0100 ####[facility] [address] [place], [address] RBC Normal 4.6-6.2 [facility] Comment on above: Result Comment: CBCD ORDER ON OTHER REQ Performed By: #### L 100.0100 ####[facility] [address] [place], [address] RDW CV Normal 11.6-14.6 [facility] Comment on above: Result Comment: CBCD ORDER ON OTHER REQ Performed By: #### L 100.0100 ####[facility] [address] [place], [address] RDW SD Normal 35.1-43.9 [facility] Comment on above: Result Comment: CBCD ORDER ON OTHER REQ Performed By: #### L 100.0100 ####[facility] [address] [place], [address] WBC Normal 4.4-11.0 [facility] Comment on above: Result Comment: CBCD ORDER ON OTHER REQ Performed By: #### L 100.0100 ####[facility] [address] [place], [address] Carbon dioxide, total [Moles /volume] in Central venous bloodOrdered By: Brenda Araujo on 12-14-2024 CO2 [Moles/Vol] 23.4 mmol/L 21.0-32.0 [facility] Chest PA and Lateralon 12-14 Chest PA and Lateral Normal [facility] Chloride assayOrdered By: Kalen Araujo on 12-14-2024 Chloride [Moles/Vol] 97 mmol/L Low 98-108 [facility] Comprehensive Metabolic Prof ilon 12-14-2024 Albumin [Mass/Vol] 4.2 g/dL Normal 3.4-4.8 [facility] Comment on above: Order Comment: MALINDA WEBSTER ORDERED CBCD Performed By: #### L 100.0100, L503.6550, L503.6030, L3100.2300, L500.4050 ####[facility] [address] [place], [address] Albumin/Globulin [Mass ratio] 1.4 {ratio} Normal 0.9-2.4 [facility] Comment on above: Order Comment: MALINDA WEBSTER ORDERED CBCD Performed By: #### L 100.0100, L503.6550, L503.6030, L3100.2300, L500.4050 ####[facility] [address] [place], [address] ALK PHOS 116 U/L Normal 40-129 [facility] Comment on above: Order Comment: MALINDA WEBSTER ORDERED CBCD Performed By: #### L 100.0100, L503.6550, L503.6030, L3100.2300, L500.4050 ####[facility] [address] [place], [address] ALT [Catalytic activity/Vol] 11 U/L Normal <=46 [facility] Comment on above: Order Comment: MALINDA WEBSTER ORDERED CBCD Performed By: #### L 100.0100, L503.6550, L503.6030, L3100.2300, L500.4050 ####[facility] [address] [place], [address] AST [Catalytic activity/Vol] 24 U/L Normal <=37 [facility] Comment on above: Order Comment: MALINDA WEBSTER ORDERED CBCD Performed By: #### L 100.0100, L503.6550, L503.6030, L3100.2300, L500.4050 ####[facility] [address] [place], [address] Bilirubin [Mass/Vol] 0.51 mg/dL Normal 0.00-1.30 [facility] Comment on above: Order Comment: MALINDA WEBSTER ORDERED CBCD Performed By: #### L 100.0100, L503.6550, L503.6030, L3100.2300, L500.4050 ####[facility] [address] [place], [address] BUN/CRE 11.3 RATIO Normal 10-20 [facility] Comment on above: Order Comment: MALINDA WEBSTER ORDERED CBCD Performed By: #### L 100.0100, L503.6550, L503.6030, L3100.2300, L500.4050 ####[facility] [address] [place], [address] Calcium [Mass/Vol] 9.3 mg/dL Normal 7.6-11.0 [facility] Comment on above: Order Comment: MALINDA WEBSTER ORDERED CBCD Performed By: #### L 100.0100, L503.6550, L503.6030, L3100.2300, L500.4050 ####[facility] [address] [place], [address] Chloride [Moles/Vol] 97 mmol/L Low 98-108 [facility] Comment on above: Order Comment: MALINDA WEBSTER ORDERED CBCD Performed By: #### L 100.0100, L503.6550, L503.6030, L3100.2300, L500.4050 ####[facility] [address] [place], [address] CO2 [Moles/Vol] 23.4 mmol/L Normal 21.0-32.0 [facility] Comment on above: Order Comment: MALINDA WEBSTER ORDERED CBCD Performed By: #### L 100.0100, L503.6550, L503.6030, L3100.2300, L500.4050 ####[facility] [address] [place], [address] Creatinine [Mass/Vol] 1.00 mg/dL Normal 0.70-1.20 [facility] Comment on above: Order Comment: MALINDA WEBSTER ORDERED CBCD Performed By: #### L 100.0100, L503.6550, L503.6030, L3100.2300, L500.4050 ####[facility] [address] [place], [address] GAP 12 Normal 5-15 [facility] Comment on above: Order Comment: MALINDA WEBSTER ORDERED CBCD Performed By: #### L 100.0100, L503.6550, L503.6030, L3100.2300, L500.4050 ####[facility] [address] [place], [address] GFR/1.73 sq M.predicted among non-blacks MDRD (S/P/Bld) [Vol rate/Area] 76 mL/min/{1.73_m2} Normal >60 [facility] Comment on above: Order Comment: MALINDA WEBSTER ORDERED CBCD Result Comment: mL/m in/1.73m2 CKD-EPI Creatinine Equation (2020) Performed By: #### L 100.0100, L503.6550, L503.6030, L3100.2300, L500.4050 ####[facility] [address] [place], [address] Globulin (S) [Mass/Vol] 3.0 g/dL Normal 2.2-4.2 [facility] Comment on above: Order Comment: MALINDA WEBSTER ORDERED CBCD Performed By: #### L 100.0100, L503.6550, L503.6030, L3100.2300, L500.4050 ####[facility] [address] [place], [address] Glucose [Mass/Vol] 106 mg/dL High 70-99 [facility] Comment on above: Order Comment: MALINDA WEBSTER ORDERED CBCD Performed By: #### L 100.0100, L503.6550, L503.6030, L3100.2300, L500.4050 ####[facility] [address] [place], [address] Potassium [Moles/Vol] 3.8 mmol/L Normal 3.3-5.1 [facility] Comment on above: Order Comment: MALINDA WEBSTER ORDERED CBCD Performed By: #### L 100.0100, L503.6550, L503.6030, L3100.2300, L500.4050 ####[facility] [address] [place], [address] Sodium [Moles/Vol] 133 mmol/L Normal 133-145 [facility] Comment on above: Order Comment: MALINDA WEBSTER ORDERED CBCD Performed By: #### L 100.0100, L503.6550, L503.6030, L3100.2300, L500.4050 ####[facility] [address] [place], [address] T PROT 7.3 g/dL Normal 5.9-8.4 [facility] Comment on above: Order Comment: MALINDA WEBSTER ORDERED CBCD Performed By: #### L 100.0100, L503.6550, L503.6030, L3100.2300, L500.4050 ####[facility] [address] [place], [address] Urea nitrogen [Mass/Vol] 11 mg/dL Normal 4-19 [facility] Comment on above: Order Comment: MALINDA WEBSTER ORDERED CBCD Performed By: #### L 100.0100, L503.6550, L503.6030, L3100.2300, L500.4050 ####[facility] [address] [place], [address] Eosinophil percentageOrdered By: Brenda Araujo on 12-14-2024 Eosinophils/100 WBC (Bld) 0.4 % 0-5 [facility] Erythrocyte distribution wid th ratioOrdered By: Brenda Araujo on 12-14-2024 Erythrocyte distribution width (RBC) [Ratio] 12.8 % 11.6-14.6 [facility] Erythrocyte distribution wid th standard deviationOrdered By: Brenda Araujo on 12-14-2024 Erythrocyte distribution width (RBC) [Ratio] 41.6 fl 35.1-43.9 [facility] Ferritinon 12-14-2024 Ferritin [Mass/Vol] 49 ng/mL Normal 37-417 [facility] Comment on above: Order Comment: MALINDA WEBSTER ORDERED CBCD Performed By: #### L 100.0100, L503.6550, L503.6030, L3100.2300, L500.4050 ####[facility] [address] [place], [address] Glomerular filtration rate ( GFR) estimation/1.73 sq m using serum, plasma, or whole bOrdered By: Brenda Araujo on 12-14-2024 GFR/1.73 sq M.predicted among non-blacks MDRD (S/P/Bld) [Vol rate/Area] 76 mL/min/{1.73_m2} >60 [facility] Hematocrit Auto (Bld) [Volum e fraction]Ordered By: Brenda Araujo on 12-14-2024 Hematocrit (Bld) [Volume fraction] 31.4 % Low 40-54 [facility] Hemoglobin measurementOrdere d By: Brenda Araujo on 12-14-2024 Hemoglobin (Bld) [Mass/Vol] 10.8 g/dL Low 13.0-16.5 [facility] Immature granulocytes/100 WB C Auto (Bld)Ordered By: Brenda Araujo on 12-14-2024 Immature granulocytes/100 WBC (Bld) 0.400 % 0.0-0.9 [facility] Iron measurement (mass/mass) Ordered By: Brenda Araujo on 12-14-2024 Iron (Unsp spec) [Mass/Mass] 24 ug/dL Low 65-175 [facility] Iron+Iron Binding Capacityon 12-14-2024 Iron [Mass/Vol] 24 ug/dL Low 65-175 [facility] Comment on above: Order Comment: MALINDA WEBSTER ORDERED CBCD Performed By: #### L 100.0100, L503.6550, L503.6030, L3100.2300, L500.4050 ####[facility] [address] [place], [address] IRON SATURATION 8.0 Low 9-55 [facility] Comment on above: Order Comment: MALINDA WEBSTER ORDERED CBCD Performed By: #### L 100.0100, L503.6550, L503.6030, L3100.2300, L500.4050 ####[facility] [address] [place], [address] TIBC 314 ug/dL Normal 250-450 [facility] Comment on above: Order Comment: MALINDA WEBSTER ORDERED CBCD Performed By: #### L 100.0100, L503.6550, L503.6030, L3100.2300, L500.4050 ####[facility] [address] [place], [address] UIBC 290 ug/dL Normal 228-428 [facility] Comment on above: Order Comment: MALINDA WEBSTER ORDERED CBCD Performed By: #### L 100.0100, L503.6550, L503.6030, L3100.2300, L500.4050 ####[facility] [address] [place], [address] MCV (mean corpuscular volume ) determinationOrdered By: Brenda Araujo on 12-14-2024 MCV (RBC) [Entitic vol] 89.0 fL 80-94 [facility] Mean corpuscular hemoglobin (MCH) determinationOrdered By: Brenda Araujo on 12-14-2024 MCH (RBC) [Entitic mass] 30.6 pg 27.0-32.0 [facility] Monocyte percentageOrdered B y: Brenda Araujo on 12-14-2024 Monocytes/100 WBC (Bld) 8.6 % 0-10 [facility] Neutrophil percentageOrdered By: Brenda Araujo on 12-14-2024 Neutrophils/100 WBC (Bld) 80.3 % High 47-70 [facility] No Panel InformationOrdered By: Brenda Araujo on 12-14-2024 24 U/L <38 [facility] 290 ug/dL 228-428 [facility] Platelet countOrdered By: Kalen Araujo on 12-14-2024 Platelets (Bld) [#/Vol] 312 10*3/uL 150-450 [facility] Potassium measurement (mass/ volume)Ordered By: Brenda Araujo on 12-14-2024 Potassium (Unsp spec) [Mass/Vol] 3.8 mmol/L 3.3-5.1 [facility] RBC Auto (Bld) [#/Vol]Ordere d By: Brenda Araujo on 12-14-2024 RBC (Bld) [#/Vol] 3.53 10*6/uL Low 4.6-6.2 [facility] Serum creatinine measurement (mass/volume)Ordered By: Brenda Araujo on 12-14-2024 Creatinine [Mass/Vol] 1.00 mg/dL 0.70-1.20 [facility] Serum globulin measurementOr dered By: Brenda Araujo on 12-14-2024 Globulin (S) [Mass/Vol] 3.0 g/dL 2.2-4.2 [facility] Serum glucose measurement (m ass/volume)Ordered By: Brenda Araujo on 12-14-2024 Glucose [Mass/Vol] 106 mg/dL High 70-99 [facility] Serum or plasma alanine carrion otransferase (ALT) measurementOrdered By: Brenda Araujo on 12-14-2024 ALT [Catalytic activity/Vol] 11 U/L <47 [facility] Serum or plasma albumin shagufta urement (mass/volume)Ordered By: Brenda Araujo on 12-14-2024 Albumin [Mass/Vol] 4.2 g/dL 3.4-4.8 [facility] Serum or plasma albumin/glob ulin mass ratioOrdered By: Brenda Araujo on 12-14-2024 Albumin/Globulin [Mass ratio] 1.4 {ratio} 0.9-2.4 [facility] Serum or plasma alkaline airam sphatase measurementOrdered By: Brenda Araujo on 12-14-2024 ALP [Catalytic activity/Vol] 116 U/L 40-129 [facility] Serum or plasma calcium shagufta urement (mass/volume)Ordered By: Brenda Araujo on 12-14-2024 Calcium [Mass/Vol] 9.3 mg/dL 7.6-11.0 [facility] Serum or plasma carcinoembry onic antigen measurement (mass/volume)Ordered By: Brenda Araujo on 12-14-2024 Carcinoembryonic Ag [Mass/Vol] 47.8 ng/mL High 0.0-4.7 [facility] Serum or plasma ferritin francy surement (mass/volume)Ordered By: Brenda Araujo on 12-14-2024 Ferritin [Mass/Vol] 49 ng/mL 37-417 [facility] Serum or plasma iron saturat ion measurement (mass fraction)Ordered By: Brenda Araujo on 12-14-2024 Iron saturation [Mass fraction] 8.0 % Low 9-55 [facility] Serum or plasma urea nitroge n measurement (mass/volume)Ordered By: Brenda Araujo on 12-14-2024 Urea nitrogen [Mass/Vol] 11 mg/dL 4-19 [facility] Sodium levelOrdered By: Tha Araujo on 12-14-2024 Sodium [Moles/Vol] 133 mmol/L 133-145 [facility] Total proteinOrdered By: Rahul Araujo on 12-14-2024 Protein [Mass/Vol] 7.3 g/dL 5.9-8.4 [facility] White blood cell (WBC) count Ordered By: Brenda Araujo on 12-14-2024 WBC (Bld) [#/Vol] 6.9 10*3/uL 4.4-11.0 [facility] Surgical pathology reportOrd ered By: Teresa Martel on 12-06-2024 Surgical pathology study [facility] Absolute lymphocyte countOrd ered By: Darrel Watts on 12-05-2024 Lymphocytes Auto (Unsp spec) [#/Vol] 0.91 10*3/uL 0.83-4.51 [facility] Absolute neutrophil countOrd ered By: Darrel Watts on 12-05-2024 Neutrophils (Bld) [#/Vol] 5.6 10*3/uL 2.0-7.7 [facility] Activated partial thrombopla stin time (aPTT) in platelet poor plasma by coagulation aOrdered By: Darrel Watts on 12-05-2024 aPTT Coag (PPP) [Time] 34.0 s 24.1-36.2 [facility] Automated lymphocyte count a s percentage of total leukocytesOrdered By: Darrel Watts on 12-05-2024 Lymphocytes/100 WBC Auto (Unsp spec) 12.1 % Low 19-41 [facility] Basophil percentageOrdered B y: Darrel Watts on 12-05-2024 Basophils/100 WBC (Bld) 0.3 % 0-1 [facility] Biopsy/Inj or Needle Placeme nton 12-05-2024 Biopsy/Inj or Needle Placement Normal [facility] CBC W/Diff, Automatedon Absolute Lymph 0.91 X10 3/uL Normal 0.83-4.51 [facility] Comment on above: Performed By: #### L 300.4310, L300.3900, L100.0100 ####[facility] [address] [place], [address] Absolute Neut 5.6 X10 3/uL Normal 2.0-7.7 [facility] Comment on above: Performed By: #### L 300.4310, L300.3900, L100.0100 ####[facility] [address] [place], [address] Basophils/100 WBC (Bld) 0.3 % Normal 0-1 [facility] Comment on above: Performed By: #### L 300.4310, L300.3900, L100.0100 ####[facility] [address] [place], [address] Eosinophils/100 WBC (Bld) 2.3 % Normal 0-5 [facility] Comment on above: Performed By: #### L 300.4310, L300.3900, L100.0100 ####[facility] [address] [place], [address] Erythrocyte distribution width (RBC) [Ratio] 12.7 % Normal 11.6-14.6 [facility] Comment on above: Performed By: #### L 300.4310, L300.3900, L100.0100 ####[facility] [address] [place], [address] Hematocrit (Bld) [Volume fraction] 29.2 % Low 40-54 [facility] Comment on above: Performed By: #### L 300.4310, L300.3900, L100.0100 ####[facility] [address] [place], [address] Hemoglobin (Bld) [Mass/Vol] 10.0 g/dL Low 13.0-16.5 [facility] Comment on above: Performed By: #### L 300.4310, L300.3900, L100.0100 ####[facility] [address] [place], [address] IG% 0.300 Normal 0.0-0.9 [facility] Comment on above: Result Comment: IG% - Immature Granulocytes (promyelocytes, myelocytes andmetamyelocytes) > 1% indicates that a LEFT SHIFT is Present. Performed By: #### L 300.4310, L300.3900, L100.0100 ####[facility] [address] [place], [address] Lymphocytes/100 WBC (Bld) 12.1 % Low 19-41 [facility] Comment on above: Performed By: #### L 300.4310, L300.3900, L100.0100 ####[facility] [address] [place], [address] MCH (RBC) [Entitic mass] 30.4 pg Normal 27.0-32.0 [facility] Comment on above: Performed By: #### L 300.4310, L300.3900, L100.0100 ####[facility] [address] [place], [address] MCHC (RBC) [Mass/Vol] 34.2 g/dL Normal 32-36 [facility] Comment on above: Performed By: #### L 300.4310, L300.3900, L100.0100 ####[facility] [address] [place], [address] MCV (RBC) [Entitic vol] 88.8 fL Normal 80-94 [facility] Comment on above: Performed By: #### L 300.4310, L300.3900, L100.0100 ####[facility] [address] [place], [address] Monocytes/100 WBC (Bld) 10.8 % High 0-10 [facility] Comment on above: Performed By: #### L 300.4310, L300.3900, L100.0100 ####[facility] [address] [place], [address] Neutrophils/100 WBC (Bld) 74.2 % High 47-70 [facility] Comment on above: Performed By: #### L 300.4310, L300.3900, L100.0100 ####[facility] [address] [place], [address] Nucleated RBC (Bld) [#/Vol] 0 10*3/uL Normal 0-5 [facility] Comment on above: Performed By: #### L 300.4310, L300.3900, L100.0100 ####[facility] [address] [place], [address] Platelet mean volume (Bld) [Entitic vol] 8.8 fL Normal 6.2-12.0 [facility] Comment on above: Performed By: #### L 300.4310, L300.3900, L100.0100 ####[facility] [address] [place], [address] Platelets (Bld) [#/Vol] 334 10*3/uL Normal 150-450 [facility] Comment on above: Performed By: #### L 300.4310, L300.3900, L100.0100 ####[facility] [address] [place], [address] RBC (Bld) [#/Vol] 3.29 10*6/uL Low 4.6-6.2 [facility] Comment on above: Performed By: #### L 300.4310, L300.3900, L100.0100 ####[facility] [address] [place], [address] RDW SD 41.4 fl Normal 35.1-43.9 [facility] Comment on above: Performed By: #### L 300.4310, L300.3900, L100.0100 ####[facility] [address] [place], [address] WBC (Bld) [#/Vol] 7.5 10*3/uL Normal 4.4-11.0 [facility] Comment on above: Performed By: #### L 300.4310, L300.3900, L100.0100 ####[facility] [address] [place], [address] Eosinophil percentageOrdered By: Darrel Watts on 12-05-2024 Eosinophils/100 WBC (Bld) 2.3 % 0-5 [facility] Erythrocyte distribution wid th ratioOrdered By: Darrel Watts on 12-05-2024 Erythrocyte distribution width (RBC) [Ratio] 12.7 % 11.6-14.6 [facility] Erythrocyte distribution wid th standard deviationOrdered By: Darrel Watts on 12-05-2024 Erythrocyte distribution width (RBC) [Ratio] 41.4 fl 35.1-43.9 [facility] Hematocrit Auto (Bld) [Volum e fraction]Ordered By: Darrel Watts on 12-05-2024 Hematocrit (Bld) [Volume fraction] 29.2 % Low 40-54 [facility] Hemoglobin measurementOrdere d By: Darrel Watts on 12-05-2024 Hemoglobin (Bld) [Mass/Vol] 10.0 g/dL Low 13.0-16.5 [facility] Immature granulocytes/100 WB C Auto (Bld)Ordered By: Darrel Watts on 12-05-2024 Immature granulocytes/100 WBC (Bld) 0.300 % 0.0-0.9 [facility] Comment on above: IG% - Immature Granu locytes (promyelocytes, myelocytes and metamyelocytes) > 1% indicates that a LEFT SHIFT is Present. Immunohistochemical Stainson 12-05-2024 Immunohistochemical Stains Normal [facility] Comment on above: Performed By: #### P IMSD ####[facility] [address] [place], [address] International normalized rat io (INR) calculationOrdered By: Darrel Watts on 12-05-2024 INR Coag (Bld) [Relative time] 1.1 {INR} [facility] MCV (mean corpuscular volume ) determinationOrdered By: Darrel Watts on 12-05-2024 MCV (RBC) [Entitic vol] 88.8 fL 80-94 [facility] Mean corpuscular hemoglobin (MCH) determinationOrdered By: Darrel Watts on 12-05-2024 MCH (RBC) [Entitic mass] 30.4 pg 27.0-32.0 [facility] Mean corpuscular hemoglobin concentration (MCHC) determinationOrdered By: Darrel Watts on 12-05-2024 MCHC (RBC) [Mass/Vol] 34.2 g/dL 32-36 [facility] Mean platelet volume determi nationOrdered By: Darrel Watts on 12-05-2024 Platelet mean volume (Bld) [Entitic vol] 8.8 fL 6.2-12.0 [facility] Monocyte percentageOrdered B y: aDrrel Watts on 12-05-2024 Monocytes/100 WBC (Bld) 10.8 % High 0-10 [facility] Neutrophil percentageOrdered By: Darrel Watts on 12-05-2024 Neutrophils/100 WBC (Bld) 74.2 % High 47-70 [facility] Nucleated red blood cell per centageOrdered By: Darrel Watts on 12-05-2024 Nucleated RBC/100 WBC (Bld) [Ratio] 0 % 0-5 [facility] Partial Thromboplast Timeon 12-05-2024 aPTT Coag (Bld) [Time] 34.0 s Normal 24.1-36.2 [facility] Comment on above: Performed By: #### L 300.4310, L300.3900, L100.0100 ####[facility] [address] [place], [address] Platelet countOrdered By: Gopi Watts on 12-05-2024 Platelets (Bld) [#/Vol] 334 10*3/uL 150-450 [facility] Prothrombin Time w/INRon INR Coag (PPP) [Relative time] 1.1 {INR} Normal [facility] Comment on above: Performed By: #### L 300.4310, L300.3900, L100.0100 ####[facility] [address] [place], [address] PT Coag (PPP) [Time] 14.0 s Normal 11.7-14.9 [facility] Comment on above: Performed By: #### L 300.4310, L300.3900, L100.0100 ####[facility] [address] [place], [address] Prothrombin timeOrdered By: Darrel Watts on 12-05-2024 PT Coag (PPP) [Time] 14.0 s 11.7-14.9 [facility] RBC Auto (Bld) [#/Vol]Ordere d By: Darrel Watts on 12-05-2024 RBC (Bld) [#/Vol] 3.29 10*6/uL Low 4.6-6.2 [facility] White blood cell (WBC) count Ordered By: Darrel Watts on 12-05-2024 WBC (Bld) [#/Vol] 7.5 10*3/uL 4.4-11.0 [facility] Gastroenterology Visit Repor ton 12-04-2024 Gastroenterology Visit Report Normal [facility] Chest WITH Contraston 2024 Chest WITH Contrast Normal [facility] Echo Complete W/ Contraston 11-28-2024 Echo Complete W/ Contrast Normal [facility] Oncology Visit Reporton 11-01 Oncology Visit Report Normal [facility] Absolute lymphocyte countOrd ered By: Neville Jang on 11-20-2024 Lymphocytes Auto (Unsp spec) [#/Vol] 1.21 10*3/uL 0.83-4.51 [facility] Absolute neutrophil countOrd ered By: Neville Jang on 11-20-2024 Neutrophils (Bld) [#/Vol] 7.6 10*3/uL 2.0-7.7 [facility] Automated lymphocyte count a s percentage of total leukocytesOrdered By: Neville Jang on 11-20-2024 Lymphocytes/100 WBC Auto (Unsp spec) 12.0 % Low 19-41 [facility] Basophil percentageOrdered B y: Neville Jang on 11-20-2024 Basophils/100 WBC (Bld) 0.3 % 0-1 [facility] CBC W/Diff, Automatedon 10-31 Absolute Lymph 1.21 X10 3/uL Normal 0.83-4.51 [facility] Comment on above: Performed By: #### L 100.0100 ####[facility] [address] [place], [address] Absolute Neut 7.6 X10 3/uL Normal 2.0-7.7 [facility] Comment on above: Performed By: #### L 100.0100 ####[facility] [address] [place], [address] Basophils/100 WBC (Bld) 0.3 % Normal 0-1 [facility] Comment on above: Performed By: #### L 100.0100 ####[facility] [address] [place], [address] Eosinophils/100 WBC (Bld) 1.7 % Normal 0-5 [facility] Comment on above: Performed By: #### L 100.0100 ####[facility] [address] [place], [address] Erythrocyte distribution width (RBC) [Ratio] 12.6 % Normal 11.6-14.6 [facility] Comment on above: Performed By: #### L 100.0100 ####[facility] [address] [place], [address] Hematocrit (Bld) [Volume fraction] 29.4 % Low 40-54 [facility] Comment on above: Performed By: #### L 100.0100 ####[facility] [address] [place], [address] Hemoglobin (Bld) [Mass/Vol] 10.3 g/dL Low 13.0-16.5 [facility] Comment on above: Performed By: #### L 100.0100 ####[facility] [address] [place], [address] IG% 0.300 Normal 0.0-0.9 [facility] Comment on above: Result Comment: IG% - Immature Granulocytes (promyelocytes, myelocytes andmetamyelocytes) > 1% indicates that a LEFT SHIFT is Present. Performed By: #### L 100.0100 ####[facility] [address] [place], [address] Lymphocytes/100 WBC (Bld) 12.0 % Low 19-41 [facility] Comment on above: Performed By: #### L 100.0100 ####[facility] [address] [place], [address] MCH (RBC) [Entitic mass] 30.8 pg Normal 27.0-32.0 [facility] Comment on above: Performed By: #### L 100.0100 ####[facility] [address] [place], [address] MCHC (RBC) [Mass/Vol] 35.0 g/dL Normal 32-36 [facility] Comment on above: Performed By: #### L 100.0100 ####[facility] [address] [place], [address] MCV (RBC) [Entitic vol] 88.0 fL Normal 80-94 [facility] Comment on above: Performed By: #### L 100.0100 ####[facility] [address] [place], [address] Monocytes/100 WBC (Bld) 10.2 % High 0-10 [facility] Comment on above: Performed By: #### L 100.0100 ####[facility] [address] [place], [address] Neutrophils/100 WBC (Bld) 75.5 % High 47-70 [facility] Comment on above: Performed By: #### L 100.0100 ####[facility] [address] [place], [address] Nucleated RBC (Bld) [#/Vol] 0 10*3/uL Normal 0-5 [facility] Comment on above: Performed By: #### L 100.0100 ####[facility] [address] [place], [address] Platelet mean volume (Bld) [Entitic vol] 8.7 fL Normal 6.2-12.0 [facility] Comment on above: Performed By: #### L 100.0100 ####[facility] [address] [place], [address] Platelets (Bld) [#/Vol] 314 10*3/uL Normal 150-450 [facility] Comment on above: Performed By: #### L 100.0100 ####[facility] [address] [place], [address] RBC (Bld) [#/Vol] 3.34 10*6/uL Low 4.6-6.2 [facility] Comment on above: Performed By: #### L 100.0100 ####[facility] [address] [place], [address] RDW SD 40.2 fl Normal 35.1-43.9 [facility] Comment on above: Performed By: #### L 100.0100 ####[facility] [address] [place], [address] WBC (Bld) [#/Vol] 10.1 10*3/uL Normal 4.4-11.0 [facility] Comment on above: Performed By: #### L 100.0100 ####[facility] [address] [place], [address] Colonoscopy Reporton Colonoscopy Report Normal [facility] Discharge Instructionon 10-31 Discharge Instruction Normal [facility] Eosinophil percentageOrdered By: Neville Jang on 11-20-2024 Eosinophils/100 WBC (Bld) 1.7 % 0-5 [facility] Erythrocyte distribution wid th (RBC) [Ratio]Ordered By: Neville Jang on 11-20-2024 Erythrocyte distribution width (RBC) [Entitic vol] 40.2 fL 35.1-43.9 [facility] Erythrocyte distribution wid th ratioOrdered By: Neville Jang on 11-20-2024 Erythrocyte distribution width (RBC) [Ratio] 12.6 % 11.6-14.6 [facility] Erythrocyte distribution wid th standard deviationOrdered By: Neville Jang on 11-20-2024 Erythrocyte distribution width (RBC) [Ratio] 40.2 fl 35.1-43.9 [facility] Hematocrit Auto (Bld) [Volum e fraction]Ordered By: Neville Jang on 11-20-2024 Hematocrit (Bld) [Volume fraction] 29.4 % Low 40-54 [facility] Hemoglobin measurementOrdere d By: Neville Jang on 11-20-2024 Hemoglobin (Bld) [Mass/Vol] 10.3 g/dL Low 13.0-16.5 [facility] Immature granulocytes/100 WB C Auto (Bld)Ordered By: Neville Jang on 11-20-2024 Immature granulocytes/100 WBC (Bld) 0.300 % 0.0-0.9 [facility] Comment on above: IG% - Immature Granu locytes (promyelocytes, myelocytes and metamyelocytes) > 1% indicates that a LEFT SHIFT is Present. Lymphocytes Auto (Unsp spec) [#/Vol]Ordered By: Neville Jang on 11-20-2024 Lymphocytes (Bld) [#/Vol] 1.21 10*3/uL 0.83-4.51 [facility] Lymphocytes/100 WBC Auto (Un sp spec)Ordered By: Neville Jang on 11-20-2024 Lymphocytes/100 WBC (Bld) 12.0 % Low 19-41 [facility] MCV (mean corpuscular volume ) determinationOrdered By: Neville Jang on 11-20-2024 MCV (RBC) [Entitic vol] 88.0 fL 80-94 [facility] MR/[id number] 11-20-2024 MR/POSTOPAN2 Normal [facility] Mean corpuscular hemoglobin (MCH) determinationOrdered By: Neville Jang on 11-20-2024 MCH (RBC) [Entitic mass] 30.8 pg 27.0-32.0 [facility] Mean corpuscular hemoglobin concentration (MCHC) determinationOrdered By: Neville Jang on 11-20-2024 MCHC (RBC) [Mass/Vol] 35.0 g/dL 32-36 [facility] Mean platelet volume determi nationOrdered By: Neville Jang on 11-20-2024 Platelet mean volume (Bld) [Entitic vol] 8.7 fL 6.2-12.0 [facility] Monocyte percentageOrdered B y: Neville Jang on 11-20-2024 Monocytes/100 WBC (Bld) 10.2 % High 0-10 [facility] Neutrophil percentageOrdered By: Neville Jang on 11-20-2024 Neutrophils/100 WBC (Bld) 75.5 % High 47-70 [facility] Nucleated red blood cell per centageOrdered By: Neville Jang on 11-20-2024 Nucleated RBC/100 WBC (Bld) [Ratio] 0 % 0-5 [facility] Platelet countOrdered By: Kalen Jang on 11-20-2024 Platelets (Bld) [#/Vol] 314 10*3/uL 150-450 [facility] RBC Auto (Bld) [#/Vol]Ordere d By: Neville Jang on 11-20-2024 RBC (Bld) [#/Vol] 3.34 10*6/uL Low 4.6-6.2 [facility] White blood cell (WBC) count Ordered By: Neville Jang on 11-20-2024 WBC (Bld) [#/Vol] 10.1 10*3/uL 4.4-11.0 [facility] Anion gap in Serum or Plasma Ordered By: Kelvin Schrader on 11-19-2024 Anion gap [Moles/Vol] 12 mmol/L 5-15 [facility] BUN/creatinine ratioOrdered By: Kelvin Schrader on 11-19-2024 Urea nitrogen/Creatinine [Mass ratio] 10.4 mg/mg 10-20 [facility] Basic Metabolic Profile (BMP )on 11-19-2024 BUN/CRE 10.4 RATIO Normal - [facility] Comment on above: Performed By: #### L 100.0100, L500.2500 ####[facility] [address] [place], [address] Calcium [Mass/Vol] 8.8 mg/dL Normal 7.6-11.0 [facility] Comment on above: Performed By: #### L 100.0100, L500.2500 ####[facility] [address] [place], [address] Chloride [Moles/Vol] 99 mmol/L Normal 98-108 [facility] Comment on above: Performed By: #### L 100.0100, L500.2500 ####[facility] [address] [place], [address] CO2 [Moles/Vol] 21.0 mmol/L Normal 21.0-32.0 [facility] Comment on above: Performed By: #### L 100.0100, L500.2500 ####[facility] [address] [place], [address] Creatinine [Mass/Vol] 0.95 mg/dL Normal 0.70-1.20 [facility] Comment on above: Performed By: #### L 100.0100, L500.2500 ####[facility] [address] [place], [address] ECRCL 57.98 ml/min Normal 50-250 [facility] Comment on above: Performed By: #### L 100.0100, L500.2500 ####[facility] [address] [place], [address] GAP 12 Normal 5-15 [facility] Comment on above: Performed By: #### L 100.0100, L500.2500 ####[facility] [address] [place], [address] GFR/1.73 sq M.predicted among non-blacks MDRD (S/P/Bld) [Vol rate/Area] 81 mL/min/{1.73_m2} Normal >60 [facility] Comment on above: Result Comment: mL/m in/1.73m2 CKD-EPI Creatinine Equation (2020) Performed By: #### L 100.0100, L500.2500 ####[facility] [address] [place], [address] Glucose [Mass/Vol] 99 mg/dL Normal 70-99 [facility] Comment on above: Performed By: #### L 100.0100, L500.2500 ####[facility] [address] [place], [address] Potassium [Moles/Vol] 4.0 mmol/L Normal 3.3-5.1 [facility] [facility] Comment on above: Performed By: #### L 100.0100, L500.2500 ####[facility] [address] [place], [address] Sodium [Moles/Vol] 132 mmol/L Low 133-145 [facility] Comment on above: Performed By: #### L 100.0100, L500.2500 ####[facility] [address] [place], [address] Urea nitrogen [Mass/Vol] 10 mg/dL Normal 4-19 [facility] Comment on above: Performed By: #### L 100.0100, L500.2500 ####[facility] [address] [place], [address] CBC W/Diff, Automatedon - Absolute Lymph 1.20 X10 3/uL Normal 0.83-4.51 [facility] Comment on above: Performed By: #### L 100.0100, L500.2500 ####[facility] [address] [place], [address] Absolute Neut 6.2 X10 3/uL Normal 2.0-7.7 [facility] Comment on above: Performed By: #### L 100.0100, L500.2500 ####[facility] [address] [place], [address] Basophils/100 WBC (Bld) 0.2 % Normal 0-1 [facility] Comment on above: Performed By: #### L 100.0100, L500.2500 ####[facility] [address] [place], [address] Eosinophils/100 WBC (Bld) 1.9 % Normal 0-5 [facility] Comment on above: Performed By: #### L 100.0100, L500.2500 ####[facility] [address] [place], [address] Erythrocyte distribution width (RBC) [Ratio] 12.5 % Normal 11.6-14.6 [facility] Comment on above: Performed By: #### L 100.0100, L500.2500 ####[facility] [address] [place], [address] Hematocrit (Bld) [Volume fraction] 32.0 % Low 40-54 [facility] Comment on above: Performed By: #### L 100.0100, L500.2500 ####[facility] [address] [place], [address] Hemoglobin (Bld) [Mass/Vol] 10.9 g/dL Low 13.0-16.5 [facility] Comment on above: Performed By: #### L 100.0100, L500.2500 ####[facility] [address] [place], [address] IG% 0.400 Normal 0.0-0.9 [facility] Comment on above: Result Comment: IG% - Immature Granulocytes (promyelocytes, myelocytes andmetamyelocytes) > 1% indicates that a LEFT SHIFT is Present. Performed By: #### L 100.0100, L500.2500 ####[facility] [address] [place], [address] Lymphocytes/100 WBC (Bld) 14.2 % Low 19-41 [facility] Comment on above: Performed By: #### L 100.0100, L500.2500 ####[facility] [address] [place], [address] MCH (RBC) [Entitic mass] 30.4 pg Normal 27.0-32.0 [facility] Comment on above: Performed By: #### L 100.0100, L500.2500 ####[facility] [address] [place], [address] MCHC (RBC) [Mass/Vol] 34.1 g/dL Normal 32-36 [facility] Comment on above: Performed By: #### L 100.0100, L500.2500 ####[facility] [address] [place], [address] MCV (RBC) [Entitic vol] 89.1 fL Normal 80-94 [facility] Comment on above: Performed By: #### L 100.0100, L500.2500 ####[facility] [address] [place], [address] Monocytes/100 WBC (Bld) 10.0 % Normal 0-10 [facility] Comment on above: Performed By: #### L 100.0100, L500.2500 ####[facility] [address] [place], [address] Neutrophils/100 WBC (Bld) 73.3 % High 47-70 [facility] Comment on above: Performed By: #### L 100.0100, L500.2500 ####[facility] [address] [place], [address] Nucleated RBC (Bld) [#/Vol] 0 10*3/uL Normal 0-5 [facility] Comment on above: Performed By: #### L 100.0100, L500.2500 ####[facility] [address] [place], [address] Platelet mean volume (Bld) [Entitic vol] 9.2 fL Normal 6.2-12.0 [facility] Comment on above: Performed By: #### L 100.0100, L500.2500 ####[facility] [address] [place], [address] Platelets (Bld) [#/Vol] 353 10*3/uL Normal 150-450 [facility] Comment on above: Performed By: #### L 100.0100, L500.2500 ####[facility] [address] [place], [address] RBC (Bld) [#/Vol] 3.59 10*6/uL Low 4.6-6.2 [facility] Comment on above: Performed By: #### L 100.0100, L500.2500 ####[facility] [address] [place], [address] RDW SD 41.0 fl Normal 35.1-43.9 [facility] Comment on above: Performed By: #### L 100.0100, L500.2500 ####[facility] [address] [place], [address] WBC (Bld) [#/Vol] 8.4 10*3/uL Normal 4.4-11.0 [facility] Comment on above: Performed By: #### L 100.0100, L500.2500 ####[facility] [address] [place], [address] Carbon dioxide, total [Moles /volume] in Central venous bloodOrdered By: Kelvin Schrader on 11-19-2024 CO2 [Moles/Vol] 21.0 mmol/L 21.0-32.0 [facility] Chloride assayOrdered By: Marybel Schrader on 11-19-2024 Chloride [Moles/Vol] 99 mmol/L 98-108 [facility] Estimation of creatinine dunia aranceOrdered By: Kelvin Schrader on 11-19-2024 Estimated Creatinine Clearance Calc 57.98 ml/min 50-250 [facility] GFR/1.73 sq M.predicted gregg g non-blacks MDRD (S/P/Bld) [Vol rate/Area]Ordered By: Kelvin Schrader on 11-19-2024 Estimated GFR (MDRD) Non-Af Amer 81 >60 [facility] Comment on above: mL/min/1.73m2 CKD-EP I Creatinine Equation (2020) Glomerular filtration rate ( GFR) estimation/1.73 sq m using serum, plasma, or whole bOrdered By: Kelvin Schrader on 11-19-2024 GFR/1.73 sq M.predicted among non-blacks MDRD (S/P/Bld) [Vol rate/Area] 81 mL/min/{1.73_m2} >60 [facility] Comment on above: mL/min/1.73m2 CKD-EP I Creatinine Equation (2020) MR/CON.PCM.GIon 11-19-2024 MR/CON.PCM.GI Normal [facility] MR/POSTOP.ANEon 11-19-2024 MR/POSTOP.ANE Normal [facility] Potassium (Unsp spec) [Mass/ Vol]Ordered By: Kelvin Schrader on 11-19-2024 Potassium [Moles/Vol] 4.0 mmol/L 3.3-5.1 [facility] Potassium measurement (mass/ volume)Ordered By: Kelvin Schrader on 11-19-2024 Potassium (Unsp spec) [Mass/Vol] 4.0 mmol/L 3.3-5.1 [facility] Serum creatinine measurement (mass/volume)Ordered By: Kelvin Schrader on 11-19-2024 Creatinine [Mass/Vol] 0.95 mg/dL 0.70-1.20 [facility] Serum glucose measurement (m ass/volume)Ordered By: Kelvin Schrader on 11-19-2024 Glucose [Mass/Vol] 99 mg/dL 70-99 [facility] Serum or plasma calcium shagufta urement (mass/volume)Ordered By: Kelvin Schrader on 11-19-2024 Calcium [Mass/Vol] 8.8 mg/dL 7.6-11.0 [facility] Serum or plasma urea nitroge n measurement (mass/volume)Ordered By: Kelvin Schrader on 11-19-2024 Urea nitrogen [Mass/Vol] 10 mg/dL 4-19 [facility] Sodium levelOrdered By: Vernon Schrader on 11-19-2024 Sodium [Moles/Vol] 132 mmol/L Low 133-145 [facility] Abdomen/Pelvis W IV Cont ONL Yon 11-18-2024 Abdomen/Pelvis W IV Cont ONLY Normal [facility] Absolute neutrophil countOrd ered By: Radha Damon on 11-18-2024 Neutrophils (Bld) [#/Vol] 5.7 10*3/uL 2.0-7.7 [facility] Anion gap in Serum or Plasma Ordered By: Radha Damon on 11-18-2024 Anion gap [Moles/Vol] 11 mmol/L 12-13 [facility] BUN/creatinine ratioOrdered By: Radha Damon on 11-18-2024 Urea nitrogen/Creatinine [Mass ratio] 13.7 mg/mg 05-20 [facility] Basic Metabolic Profile (BMP )on 11-18-2024 BUN/CRE 13.7 RATIO Normal 05-20 [facility] Comment on above: Performed By: #### L 500.2500, L100.0100 ####[facility] [address] [place], [address] Calcium [Mass/Vol] 8.9 mg/dL Normal 7.6-11.0 [facility] Comment on above: Performed By: #### L 500.2500, L100.0100 ####[facility] [address] [place], [address] Chloride [Moles/Vol] 95 mmol/L Low 98-108 [facility] Comment on above: Performed By: #### L 500.2500, L100.0100 ####[facility] [address] [place], [address] CO2 [Moles/Vol] 24.0 mmol/L Normal 21.0-32.0 [facility] Comment on above: Performed By: #### L 500.2500, L100.0100 ####[facility] [address] [place], [address] Creatinine [Mass/Vol] 1.02 mg/dL Normal 0.70-1.20 [facility] Comment on above: Performed By: #### L 500.2500, L100.0100 ####[facility] [address] [place], [address] ECRCL 54.00 ml/min Normal 50-250 [facility] Comment on above: Performed By: #### L 500.2500, L100.0100 ####[facility] [address] [place], [address] GAP 11 Normal 5-15 [facility] Comment on above: Performed By: #### L 500.2500, L100.0100 ####[facility] [address] [place], [address] GFR/1.73 sq M.predicted among non-blacks MDRD (S/P/Bld) [Vol rate/Area] 74 mL/min/{1.73_m2} Normal >60 [facility] Comment on above: Result Comment: mL/m in/1.73m2 CKD-EPI Creatinine Equation (2020) Performed By: #### L 500.2500, L100.0100 ####[facility] [address] [place], [address] Glucose [Mass/Vol] 104 mg/dL High 70-99 [facility] Comment on above: Performed By: #### L 500.2500, L100.0100 ####[facility] [address] [place], [address] Potassium [Moles/Vol] 4.1 mmol/L Normal 3.3-5.1 [facility] Comment on above: Performed By: #### L 500.2500, L100.0100 ####[facility] [address] [place], [address] Sodium [Moles/Vol] 130 mmol/L Low 133-145 [facility] Comment on above: Performed By: #### L 500.2500, L100.0100 ####[facility] [address] [place], [address] Urea nitrogen [Mass/Vol] 14 mg/dL Normal 4-19 [facility] Comment on above: Performed By: #### L 500.2500, L100.0100 ####[facility] [address] [place], [address] Basophil percentageOrdered B y: Radha Damon on 11-18-2024 Basophils/100 WBC (Bld) 0.3 % 0-1 [facility] CBC W/Diff, Automatedon 10-31-2024 Absolute Lymph 1.14 X10 3/uL Normal 0.83-4.51 [facility] Comment on above: Performed By: #### L 500.2500, L100.0100 ####[facility] [address] [place], [address] Absolute Neut 5.7 X10 3/uL Normal 2.0-7.7 [facility] Comment on above: Performed By: #### L 500.2500, L100.0100 ####[facility] [address] [place], [address] Basophils/100 WBC (Bld) 0.3 % Normal 0-1 [facility] Comment on above: Performed By: #### L 500.2500, L100.0100 ####[facility] [address] [place], [address] Eosinophils/100 WBC (Bld) 1.8 % Normal 0-5 [facility] Comment on above: Performed By: #### L 500.2500, L100.0100 ####[facility] [address] [place], [address] Erythrocyte distribution width (RBC) [Ratio] 12.4 % Normal 11.6-14.6 [facility] Comment on above: Performed By: #### L 500.2500, L100.0100 ####[facility] [address] [place], [address] Hematocrit (Bld) [Volume fraction] 29.1 % Low 40-54 [facility] Comment on above: Performed By: #### L 500.2500, L100.0100 ####[facility] [address] [place], [address] Hemoglobin (Bld) [Mass/Vol] 10.3 g/dL Low 13.0-16.5 [facility] Comment on above: Performed By: #### L 500.2500, L100.0100 ####[facility] [address] [place], [address] IG% 0.400 Normal 0.0-0.9 [facility] Comment on above: Result Comment: IG% - Immature Granulocytes (promyelocytes, myelocytes andmetamyelocytes) > 1% indicates that a LEFT SHIFT is Present. Performed By: #### L 500.2500, L100.0100 ####[facility] [address] [place], [address] Lymphocytes/100 WBC (Bld) 14.4 % Low 19-41 [facility] Comment on above: Performed By: #### L 500.2500, L100.0100 ####[facility] [address] [place], [address] MCH (RBC) [Entitic mass] 30.8 pg Normal 27.0-32.0 [facility] Comment on above: Performed By: #### L 500.2500, L100.0100 ####[facility] [address] [place], [address] MCHC (RBC) [Mass/Vol] 35.4 g/dL Normal 32-36 [facility] Comment on above: Performed By: #### L 500.2500, L100.0100 ####[facility] [address] [place], [address] MCV (RBC) [Entitic vol] 87.1 fL Normal 80-94 [facility] Comment on above: Performed By: #### L 500.2500, L100.0100 ####[facility] [address] [place], [address] Monocytes/100 WBC (Bld) 11.2 % High 0-10 [facility] Comment on above: Performed By: #### L 500.2500, L100.0100 ####[facility] [address] [place], [address] Neutrophils/100 WBC (Bld) 71.9 % High 47-70 [facility] Comment on above: Performed By: #### L 500.2500, L100.0100 ####[facility] [address] [place], [address] Nucleated RBC (Bld) [#/Vol] 0 10*3/uL Normal 0-5 [facility] Comment on above: Performed By: #### L 500.2500, L100.0100 ####[facility] [address] [place], [address] Platelet mean volume (Bld) [Entitic vol] 8.6 fL Normal 6.2-12.0 [facility] Comment on above: Performed By: #### L 500.2500, L100.0100 ####[facility] [address] [place], [address] Platelets (Bld) [#/Vol] 333 10*3/uL Normal 150-450 [facility] Comment on above: Performed By: #### L 500.2500, L100.0100 ####[facility] [address] [place], [address] RBC (Bld) [#/Vol] 3.34 10*6/uL Low 4.6-6.2 [facility] Comment on above: Performed By: #### L 500.2500, L100.0100 ####[facility] [address] [place], [address] RDW SD 39.8 fl Normal 35.1-43.9 [facility] Comment on above: Performed By: #### L 500.2500, L100.0100 ####[facility] [address] [place], [address] WBC (Bld) [#/Vol] 7.9 10*3/uL Normal 4.4-11.0 [facility] Comment on above: Performed By: #### L 500.2500, L100.0100 ####[facility] [address] [place], [address] Carbon dioxide, total [Moles /volume] in Central venous bloodOrdered By: Radha Damon on 11-18-2024 CO2 [Moles/Vol] 24.0 mmol/L 21.0-32.0 [facility] Chloride assayOrdered By: Marybel Damon on 11-18-2024 Chloride [Moles/Vol] 95 mmol/L Low 98-108 [facility] Emergency Department Summary on 11-18-2024 Emergency Department Summary Normal [facility] Eosinophil percentageOrdered By: Radha Damon on 11-18-2024 Eosinophils/100 WBC (Bld) 1.8 % 0-5 [facility] Erythrocyte distribution wid th (RBC) [Ratio]Ordered By: Radha Damon on 11-18-2024 Erythrocyte distribution width (RBC) [Entitic vol] 39.8 fL 35.1-43.9 [facility] Erythrocyte distribution wid th ratioOrdered By: Radha Damon on 11-18-2024 Erythrocyte distribution width (RBC) [Ratio] 12.4 % 11.6-14.6 [facility] Estimation of creatinine dunia aranceOrdered By: Radha Damon on 11-18-2024 Estimated Creatinine Clearance Calc 54.00 ml/min 50-250 [facility] GFR/1.73 sq M.predicted gregg g non-blacks MDRD (S/P/Bld) [Vol rate/Area]Ordered By: Radha Damon on 11-18-2024 Estimated GFR (MDRD) Non-Af Amer 74 >60 [facility] Comment on above: mL/min/1.73m2 CKD-EP I Creatinine Equation (2020) H AND P Exam - Hospital[facility] 11-18-2024 H&P Exam - Hospitalist Normal [facility] Hematocrit Auto (Bld) [Volum e fraction]Ordered By: Radha Damon on 11-18-2024 Hematocrit (Bld) [Volume fraction] 29.1 % Low 40-54 [facility] Hemoglobin measurementOrdere d By: Radha Damon on 11-18-2024 Hemoglobin (Bld) [Mass/Vol] 10.3 g/dL Low 13.0-16.5 [facility] Immature granulocytes/100 WB C Auto (Bld)Ordered By: Radha Damon on 11-18-2024 Immature granulocytes/100 WBC (Bld) 0.400 % 0.0-0.9 [facility] Comment on above: IG% - Immature Granu locytes (promyelocytes, myelocytes and metamyelocytes) > 1% indicates that a LEFT SHIFT is Present. Lymphocytes Auto (Unsp spec) [#/Vol]Ordered By: Radha Damon on 11-18-2024 Lymphocytes (Bld) [#/Vol] 1.14 10*3/uL 0.83-4.51 [facility] Lymphocytes/100 WBC Auto (Un sp spec)Ordered By: Radha Damon on 11-18-2024 Lymphocytes/100 WBC (Bld) 14.4 % Low 19-41 [facility] MCV (mean corpuscular volume ) determinationOrdered By: Radha Damon on 11-18-2024 MCV (RBC) [Entitic vol] 87.1 fL 80-94 [facility] Mean corpuscular hemoglobin (MCH) determinationOrdered By: Radha Damon on 11-18-2024 MCH (RBC) [Entitic mass] 30.8 pg 27.0-32.0 [facility] Mean corpuscular hemoglobin concentration (MCHC) determinationOrdered By: Radha Damon on 11-18-2024 MCHC (RBC) [Mass/Vol] 35.4 g/dL 32-36 [facility] Mean platelet volume determi nationOrdered By: Radha Damon on 11-18-2024 Platelet mean volume (Bld) [Entitic vol] 8.6 fL 6.2-12.0 [facility] Monocyte percentageOrdered B y: Radha Damon on 11-18-2024 Monocytes/100 WBC (Bld) 11.2 % High 0-10 [facility] Neutrophil percentageOrdered By: Radha Damon on 11-18-2024 Neutrophils/100 WBC (Bld) 71.9 % High 47-70 [facility] Nucleated red blood cell per centageOrdered By: Radha Damon on 11-18-2024 Nucleated RBC/100 WBC (Bld) [Ratio] 0 % 0-5 [facility] Platelet countOrdered By: Marybel Damon on 11-18-2024 Platelets (Bld) [#/Vol] 333 10*3/uL 150-450 [facility] Potassium (Unsp spec) [Mass/ Vol]Ordered By: Radha Damon on 11-18-2024 Potassium [Moles/Vol] 4.1 mmol/L 3.3-5.1 [facility] RBC Auto (Bld) [#/Vol]Ordere d By: Radha Damon on 11-18-2024 RBC (Bld) [#/Vol] 3.34 10*6/uL Low 4.6-6.2 [facility] Serum creatinine measurement (mass/volume)Ordered By: Radha Damon on 11-18-2024 Creatinine [Mass/Vol] 1.02 mg/dL 0.70-1.20 [facility] Serum glucose measurement (m ass/volume)Ordered By: Radha Damon on 11-18-2024 Glucose [Mass/Vol] 104 mg/dL High 70-99 [facility] Serum or plasma calcium shagufta urement (mass/volume)Ordered By: Radha Damon on 11-18-2024 Calcium [Mass/Vol] 8.9 mg/dL 7.6-11.0 [facility] Serum or plasma urea nitroge n measurement (mass/volume)Ordered By: Radha Damon on 04-20-2025 Urea nitrogen [Mass/Vol] 14 mg/dL 4- [facility] Sodium levelOrdered By: Seth Damon on 11-18-2024 Sodium [Moles/Vol] 130 mmol/L Low 133-145 [facility] Type AND Screenon 11-18-2024 Ab SCREEN GEL Negative Normal [facility] Comment on above: Order Comment: HGI Performed By: #### B TS ####[facility] [address] [place], [address] White blood cell (WBC) count Ordered By: Radha Damon on 11-18-2024 WBC (Bld) [#/Vol] 7.9 10*3/uL 4.4-11.0 [facility] Ova and Parasites 8623on OP Normal [facility] Comment on above: Performed By: #### M 100.0605, M100.6796, M100.637, M600.5000 ####[facility] [address] [place], [place], [address] 12 Lead EKGon 11-07-2024 12 Lead EKG Normal [facility] Absolute lymphocyte countOrd ered By: Stevie Harrington on 11-07-2024 Lymphocytes Auto (Unsp spec) [#/Vol] 0.91 10*3/uL 0.83-4.51 [facility] Absolute neutrophil countOrd ered By: Stevie Harrington on 11-07-2024 Neutrophils (Bld) [#/Vol] 4.3 10*3/uL 2.0-7.7 [facility] Anion gap in Serum or Plasma Ordered By: Stevie Harrington on 11-07-2024 Anion gap [Moles/Vol] 14 mmol/L 5-15 [facility] Automated lymphocyte count a s percentage of total leukocytesOrdered By: Stevie Harrington on 11-07-2024 Lymphocytes/100 WBC Auto (Unsp spec) 14.8 % Low 19-41 [facility] BUN/creatinine ratioOrdered By: Stevie Harrington on 11-07-2024 Urea nitrogen/Creatinine [Mass ratio] 16.0 mg/mg - [facility] Basic Metabolic Profile (BMP )on 11-07-2024 BUN/CRE 16.0 RATIO Normal - [facility] Comment on above: Performed By: #### L 500.2500, L100.0100 ####[facility] [address] [place], [address] Calcium [Mass/Vol] 8.6 mg/dL Normal 7.6-11.0 [facility] Comment on above: Performed By: #### L 500.2500, L100.0100 ####[facility] [address] [place], [address] Chloride [Moles/Vol] 96 mmol/L Low 98-108 [facility] Comment on above: Performed By: #### L 500.2500, L100.0100 ####[facility] [address] [place], [address] CO2 [Moles/Vol] 18.1 mmol/L Low 21.0-32.0 [facility] Comment on above: Performed By: #### L 500.2500, L100.0100 ####[facility] [address] [place], [address] Creatinine [Mass/Vol] 1.02 mg/dL Normal 0.70-1.20 [facility] Comment on above: Performed By: #### L 500.2500, L100.0100 ####[facility] [address] [place], [address] ECRCL 54.00 ml/min Normal 50-250 [facility] Comment on above: Performed By: #### L 500.2500, L100.0100 ####[facility] [address] [place], [address] GAP 14 Normal 5-15 [facility] Comment on above: Performed By: #### L 500.2500, L100.0100 ####[facility] [address] [place], [address] GFR/1.73 sq M.predicted among non-blacks MDRD (S/P/Bld) [Vol rate/Area] 74 mL/min/{1.73_m2} Normal >60 [facility] Comment on above: Result Comment: mL/m in/1.73m2 CKD-EPI Creatinine Equation (2020) Performed By: #### L 500.2500, L100.0100 ####[facility] [address] [place], [address] Glucose [Mass/Vol] 92 mg/dL Normal 70-99 [facility] Comment on above: Performed By: #### L 500.2500, L100.0100 ####[facility] [address] [place], [address] Potassium [Moles/Vol] 3.8 mmol/L Normal 3.3-5.1 [facility] Comment on above: Performed By: #### L 500.2500, L100.0100 ####[facility] [address] [place], [address] Sodium [Moles/Vol] 128 mmol/L Low 133-145 [facility] Comment on above: Performed By: #### L 500.2500, L100.0100 ####[facility] [address] [place], [address] Urea nitrogen [Mass/Vol] 16 mg/dL Normal 4-19 [facility] Comment on above: Performed By: #### L 500.2500, L100.0100 ####[facility] [address] [place], [address] Basophil percentageOrdered B y: Stevie Harrington on 11-07-2024 Basophils/100 WBC (Bld) 0.5 % 0-1 [facility] CBC W/Diff, Automatedon 04-0 Absolute Lymph 0.91 X10 3/uL Normal 0.83-4.51 [facility] Comment on above: Performed By: #### L 500.2500, L100.0100 ####[facility] [address] [place], [address] Absolute Neut 4.3 X10 3/uL Normal 2.0-7.7 [facility] Comment on above: Performed By: #### L 500.2500, L100.0100 ####[facility] [address] [place], [address] Basophils/100 WBC (Bld) 0.5 % Normal 0-1 [facility] Comment on above: Performed By: #### L 500.2500, L100.0100 ####[facility] [address] [place], [address] Eosinophils/100 WBC (Bld) 1.3 % Normal 0-5 [facility] Comment on above: Performed By: #### L 500.2500, L100.0100 ####[facility] [address] [place], [address] Erythrocyte distribution width (RBC) [Ratio] 12.3 % Normal 11.6-14.6 [facility] Comment on above: Performed By: #### L 500.2500, L100.0100 ####[facility] [address] [place], [address] Hematocrit (Bld) [Volume fraction] 34.0 % Low 40-54 [facility] Comment on above: Performed By: #### L 500.2500, L100.0100 ####[facility] [address] [place], [address] Hemoglobin (Bld) [Mass/Vol] 11.9 g/dL Low 13.0-16.5 [facility] Comment on above: Performed By: #### L 500.2500, L100.0100 ####[facility] [address] [place], [address] IG% 0.500 Normal 0.0-0.9 [facility] Comment on above: Result Comment: IG% - Immature Granulocytes (promyelocytes, myelocytes andmetamyelocytes) > 1% indicates that a LEFT SHIFT is Present. Performed By: #### L 500.2500, L100.0100 ####[facility] [address] [place], [address] Lymphocytes/100 WBC (Bld) 14.8 % Low 19-41 [facility] Comment on above: Performed By: #### L 500.2500, L100.0100 ####[facility] [address] [place], [address] MCH (RBC) [Entitic mass] 30.6 pg Normal 27.0-32.0 [facility] Comment on above: Performed By: #### L 500.2500, L100.0100 ####[facility] [address] [place], [address] MCHC (RBC) [Mass/Vol] 35.0 g/dL Normal 32-36 [facility] Comment on above: Performed By: #### L 500.2500, L100.0100 ####[facility] [address] [place], [address] MCV (RBC) [Entitic vol] 87.4 fL Normal 80-94 [facility] Comment on above: Performed By: #### L 500.2500, L100.0100 ####[facility] [address] [place], [address] Monocytes/100 WBC (Bld) 12.5 % High 0-10 [facility] Comment on above: Performed By: #### L 500.2500, L100.0100 ####[facility] [address] [place], [address] Neutrophils/100 WBC (Bld) 70.4 % High 47-70 [facility] Comment on above: Performed By: #### L 500.2500, L100.0100 ####[facility] [address] [place], [address] Nucleated RBC (Bld) [#/Vol] 0 10*3/uL Normal 0-5 [facility] Comment on above: Performed By: #### L 500.2500, L100.0100 ####[facility] [address] [place], [address] Platelet mean volume (Bld) [Entitic vol] 9.3 fL Normal 6.2-12.0 [facility] Comment on above: Performed By: #### L 500.2500, L100.0100 ####[facility] [address] [place], [address] Platelets (Bld) [#/Vol] 285 10*3/uL Normal 150-450 [facility] Comment on above: Performed By: #### L 500.2500, L100.0100 ####[facility] [address] [place], [address] RBC (Bld) [#/Vol] 3.89 10*6/uL Low 4.6-6.2 [facility] Comment on above: Performed By: #### L 500.2500, L100.0100 ####[facility] [address] [place], [address] RDW SD 39.5 fl Normal 35.1-43.9 [facility] Comment on above: Performed By: #### L 500.2500, L100.0100 ####[facility] [address] [place], [address] WBC (Bld) [#/Vol] 6.2 10*3/uL Normal 4.4-11.0 [facility] Comment on above: Performed By: #### L 500.2500, L100.0100 ####[facility] [address] [place], [address] Carbon dioxide, total [Moles /volume] in Central venous bloodOrdered By: Stevie Harrington on 11-07-2024 CO2 [Moles/Vol] 18.1 mmol/L Low 21.0-32.0 [facility] Chloride assayOrdered By: Brant Harrington on 11-07-2024 Chloride [Moles/Vol] 96 mmol/L Low 98-108 [facility] Electrocardiogram reportOrde red By: Adrian Flores on 11-07-2024 EKG study [facility] [address] [place] [address] 12 Lead EKG 11/07/24 0553 MR#: [id number] Acct: [id number] Name: JARED RAYMOND Rep #:[id number] : 1945 79 From: Adrian Flores MD Attending Dr: Dr. Stevie Harrington DO Status: ADM IN Ordering Dr: Steven Ann MD Date: 04/25 Location: [facility] Sex: M C Admitted: 11/06/24 Test Reason [...] was found Confirmed by ADRIAN FLORES MD ([id number]), editorial assistant ELIZ LOPEZ ([id number]) on 11/07/2024 1:45:42 PM Referred By: Confirmed By: ADRIAN FLORES MD 11/07/24 9485 Date _ Adrian Flores MD CC: [employer]INE[employer]-C Mariela Olson; Dr. Steven Ann MD; Dr. Stevie Harrington DO ~ Signed [facility] Work Phone: Eosinophil percentageOrdered By: Stevie Harrington on 11-07-2024 Eosinophils/100 WBC (Bld) 1.3 % 0-5 [facility] Erythrocyte distribution wid th (RBC) [Ratio]Ordered By: Stevie Harrington on 11-07-2024 Erythrocyte distribution width (RBC) [Entitic vol] 39.5 fL 35.1-43.9 [facility] Erythrocyte distribution wid th ratioOrdered By: Stevie Harrington on 11-07-2024 Erythrocyte distribution width (RBC) [Ratio] 12.3 % 11.6-14.6 [facility] Erythrocyte distribution wid th standard deviationOrdered By: Stevie Harrington on 11-07-2024 Erythrocyte distribution width (RBC) [Ratio] 39.5 fl 35.1-43.9 [facility] Estimation of creatinine dunia aranceOrdered By: Stevie Harrington on 11-07-2024 Estimated Creatinine Clearance Calc 54.00 ml/min 50-250 [facility] GFR/1.73 sq M.predicted gregg g non-blacks MDRD (S/P/Bld) [Vol rate/Area]Ordered By: Stevie Harrington on 11-07-2024 Estimated GFR (MDRD) Non-Af Amer 74 >60 [facility] Comment on above: mL/min/1.73m2 CKD-EP I Creatinine Equation (2020) Glomerular filtration rate ( GFR) estimation/1.73 sq m using serum, plasma, or whole bOrdered By: Stevie Harrington on 11-07-2024 GFR/1.73 sq M.predicted among non-blacks MDRD (S/P/Bld) [Vol rate/Area] 74 mL/min/{1.73_m2} >60 [facility] Comment on above: mL/min/1.73m2 CKD-EP I Creatinine Equation (2020) Hematocrit Auto (Bld) [Volum e fraction]Ordered By: Stevie Harrington on 11-07-2024 Hematocrit (Bld) [Volume fraction] 34.0 % Low 40-54 [facility] Hemoglobin measurementOrdere d By: Stevie Harrington on 11-07-2024 Hemoglobin (Bld) [Mass/Vol] 11.9 g/dL Low 13.0-16.5 [facility] Immature granulocytes/100 WB C Auto (Bld)Ordered By: Stevie Harrington on 11-07-2024 Immature granulocytes/100 WBC (Bld) 0.500 % 0.0-0.9 [facility] Comment on above: IG% - Immature Granu locytes (promyelocytes, myelocytes and metamyelocytes) > 1% indicates that a LEFT SHIFT is Present. Lymphocytes Auto (Unsp spec) [#/Vol]Ordered By: Stevie Harrington on 11-07-2024 Lymphocytes (Bld) [#/Vol] 0.91 10*3/uL 0.83-4.51 [facility] Lymphocytes/100 WBC Auto (Un sp spec)Ordered By: Stevie Harrington on 11-07-2024 Lymphocytes/100 WBC (Bld) 14.8 % Low 19-41 [facility] MCV (mean corpuscular volume ) determinationOrdered By: Stevie Harrington on 11-07-2024 MCV (RBC) [Entitic vol] 87.4 fL 80-94 [facility] Mean corpuscular hemoglobin (MCH) determinationOrdered By: Stevie Harrington on 11-07-2024 MCH (RBC) [Entitic mass] 30.6 pg 27.0-32.0 [facility] Mean corpuscular hemoglobin concentration (MCHC) determinationOrdered By: Stevie Harrington on 11-07-2024 MCHC (RBC) [Mass/Vol] 35.0 g/dL 32-36 [facility] Mean platelet volume determi nationOrdered By: Stevie Harrington on 11-07-2024 Platelet mean volume (Bld) [Entitic vol] 9.3 fL 6.2-12.0 [facility] Monocyte percentageOrdered B y: Stevie Harrington on 11-07-2024 Monocytes/100 WBC (Bld) 12.5 % High 0-10 [facility] Neutrophil percentageOrdered By: Stevie Harrington on 11-07-2024 Neutrophils/100 WBC (Bld) 70.4 % High 47-70 [facility] Nucleated red blood cell per centageOrdered By: Stevie Harrington on 11-07-2024 Nucleated RBC/100 WBC (Bld) [Ratio] 0 % 0-5 [facility] Platelet countOrdered By: Brant Harrington on 11-07-2024 Platelets (Bld) [#/Vol] 285 10*3/uL 150-450 [facility] Potassium (Unsp spec) [Mass/ Vol]Ordered By: Stevie Harrington on 11-07-2024 Potassium [Moles/Vol] 3.8 mmol/L 3.3-5.1 [facility] Potassium measurement (mass/ volume)Ordered By: Stevie Harrington on 11-07-2024 Potassium (Unsp spec) [Mass/Vol] 3.8 mmol/L 3.3-5.1 [facility] RBC Auto (Bld) [#/Vol]Ordere d By: Stevie Harrington on 11-07-2024 RBC (Bld) [#/Vol] 3.89 10*6/uL Low 4.6-6.2 [facility] Serum creatinine measurement (mass/volume)Ordered By: Stevie Harrington on 11-07-2024 Creatinine [Mass/Vol] 1.02 mg/dL 0.70-1.20 [facility] Serum glucose measurement (m ass/volume)Ordered By: Stevie Harrington on 11-07-2024 Glucose [Mass/Vol] 92 mg/dL 70-99 [facility] Serum or plasma calcium shagufta urement (mass/volume)Ordered By: Stevie Harrington on 11-07-2024 Calcium [Mass/Vol] 8.6 mg/dL 7.6-11.0 [facility] Serum or plasma urea nitroge n measurement (mass/volume)Ordered By: Stevie Harrington on 11-07-2024 Urea nitrogen [Mass/Vol] 16 mg/dL 4-19 [facility] Sodium levelOrdered By: Stevie Harrington on 11-07-2024 Sodium [Moles/Vol] 128 mmol/L Low 133-145 [facility] White blood cell (WBC) count Ordered By: Stevie Harrington on 11-07-2024 WBC (Bld) [#/Vol] 6.2 10*3/uL 4.4-11.0 [facility] Bilirubin, totalOrdered By: Darrel Sanders on 11-06-2024 Bilirubin [Mass/Vol] 0.64 mg/dL 0.00-1.30 [facility] C. difficile DNA BLESSING+probe Q l (Unsp spec)Ordered By: Darrel Sanders on 11-06-2024 Clostridioides difficile (PCR) [facility] CBC W/Diff, Automatedon 04-0 Absolute Lymph 0.59 X10 3/uL Low 0.83-4.51 [facility] Comment on above: Performed By: #### L 100.0100 ####[facility] [address] [place], [address] Absolute Neut 5.0 X10 3/uL Normal 2.0-7.7 [facility] Comment on above: Performed By: #### L 100.0100 ####[facility] [address] [place], [address] Basophils/100 WBC (Bld) 0.3 % Normal 0-1 [facility] Comment on above: Performed By: #### L 100.0100 ####[facility] [address] [place], [address] Eosinophils/100 WBC (Bld) 0.3 % Normal 0-5 [facility] Comment on above: Performed By: #### L 100.0100 ####[facility] [address] [place], [address] Erythrocyte distribution width (RBC) [Ratio] 12.3 % Normal 11.6-14.6 [facility] Comment on above: Performed By: #### L 100.0100 ####[facility] [address] [place], [address] Hematocrit (Bld) [Volume fraction] 33.9 % Low 40-54 [facility] Comment on above: Performed By: #### L 100.0100 ####[facility] [address] [place], [address] Hemoglobin (Bld) [Mass/Vol] 11.9 g/dL Low 13.0-16.5 [facility] Comment on above: Performed By: #### L 100.0100 ####[facility] [address] [place], [address] IG% 0.300 Normal 0.0-0.9 [facility] Comment on above: Result Comment: IG% - Immature Granulocytes (promyelocytes, myelocytes andmetamyelocytes) > 1% indicates that a LEFT SHIFT is Present. Performed By: #### L 100.0100 ####[facility] [address] [place], [address] Lymphocytes/100 WBC (Bld) 9.1 % Low 19-41 [facility] Comment on above: Performed By: #### L 100.0100 ####[facility] [address] [place], [address] MCH (RBC) [Entitic mass] 31.1 pg Normal 27.0-32.0 [facility] Comment on above: Performed By: #### L 100.0100 ####[facility] [address] [place], [address] MCHC (RBC) [Mass/Vol] 35.1 g/dL Normal 32-36 [facility] Comment on above: Performed By: #### L 100.0100 ####[facility] [address] [place], [address] MCV (RBC) [Entitic vol] 88.5 fL Normal 80-94 [facility] Comment on above: Performed By: #### L 100.0100 ####[facility] [address] [place], [address] Monocytes/100 WBC (Bld) 11.9 % High 0-10 [facility] Comment on above: Performed By: #### L 100.0100 ####[facility] [address] [place], [address] Neutrophils/100 WBC (Bld) 78.1 % High 47-70 [facility] Comment on above: Performed By: #### L 100.0100 ####[facility] [address] [place], [address] Nucleated RBC (Bld) [#/Vol] 0 10*3/uL Normal 0-5 [facility] Comment on above: Performed By: #### L 100.0100 ####[facility] [address] [place], [address] Platelet mean volume (Bld) [Entitic vol] 9.1 fL Normal 6.2-12.0 [facility] Comment on above: Performed By: #### L 100.0100 ####[facility] [address] [place], [address] Platelets (Bld) [#/Vol] 290 10*3/uL Normal 150-450 [facility] Comment on above: Performed By: #### L 100.0100 ####[facility] [address] [place], [address] RBC (Bld) [#/Vol] 3.83 10*6/uL Low 4.6-6.2 [facility] Comment on above: Performed By: #### L 100.0100 ####[facility] [address] [place], [address] RDW SD 39.8 fl Normal 35.1-43.9 [facility] Comment on above: Performed By: #### L 100.0100 ####[facility] [address] [place], [address] WBC (Bld) [#/Vol] 6.5 10*3/uL Normal 4.4-11.0 [facility] Comment on above: Performed By: #### L 100.0100 ####[facility] [address] [place], [address] Absolute Lymph 1.08 X10 3/uL Normal 0.83-4.51 [facility] Comment on above: Performed By: #### L 501.2300, L100.0100, L500.4050 ####[facility] [address] [place], [address] Absolute Neut 5.9 X10 3/uL Normal 2.0-7.7 [facility] Comment on above: Performed By: #### L 501.2300, L100.0100, L500.4050 ####[facility] [address] [place], [address] Basophils/100 WBC (Bld) 0.3 % Normal 0-1 [facility] Comment on above: Performed By: #### L 501.2300, L100.0100, L500.4050 ####[facility] [address] [place], [address] Eosinophils/100 WBC (Bld) 1.4 % Normal 0-5 [facility] Comment on above: Performed By: #### L 501.2300, L100.0100, L500.4050 ####[facility] [address] [place], [address] Erythrocyte distribution width (RBC) [Ratio] 12.2 % Normal 11.6-14.6 [facility] Comment on above: Performed By: #### L 501.2300, L100.0100, L500.4050 ####[facility] [address] [place], [address] Hematocrit (Bld) [Volume fraction] 35.2 % Low 40-54 [facility] Comment on above: Performed By: #### L 501.2300, L100.0100, L500.4050 ####[facility] [address], [address] Hemoglobin (Bld) [Mass/Vol] 12.3 g/dL Low 13.0-16.5 [facility] Comment on above: Performed By: #### L 501.2300, L100.0100, L500.4050 ####[facility] [address] [place], [address] IG% 0.300 Normal 0.0-0.9 [facility] Comment on above: Result Comment: IG% - Immature Granulocytes (promyelocytes, myelocytes andmetamyelocytes) > 1% indicates that a LEFT SHIFT is Present. Performed By: #### L 501.2300, L100.0100, L500.4050 ####[facility] [address] [place], [address] Lymphocytes/100 WBC (Bld) 13.7 % Low 19-41 [facility] Comment on above: Performed By: #### L 501.2300, L100.0100, L500.4050 ####[facility] [address] [place], [address] MCH (RBC) [Entitic mass] 30.4 pg Normal 27.0-32.0 [facility] [facility] Comment on above: Performed By: #### L 501.2300, L100.0100, L500.4050 ####[facility] [address] [place], [address] MCHC (RBC) [Mass/Vol] 34.9 g/dL Normal 32-36 [facility] Comment on above: Performed By: #### L 501.2300, L100.0100, L500.4050 ####[facility] [address] [place], [address] MCV (RBC) [Entitic vol] 87.1 fL Normal 80-94 [facility] Comment on above: Performed By: #### L 501.2300, L100.0100, L500.4050 ####[facility] [address] [place], [address] Monocytes/100 WBC (Bld) 9.8 % Normal 0-10 [facility] Comment on above: Performed By: #### L 501.2300, L100.0100, L500.4050 ####[facility] [address] [place], [address] Neutrophils/100 WBC (Bld) 74.5 % High 47-70 [facility] Comment on above: Performed By: #### L 501.2300, L100.0100, L500.4050 ####[facility] [address] [place], [address] Nucleated RBC (Bld) [#/Vol] 0 10*3/uL Normal 0-5 [facility] Comment on above: Performed By: #### L 501.2300, L100.0100, L500.4050 ####[facility] [address] [place], [address] Platelet mean volume (Bld) [Entitic vol] 8.7 fL Normal 6.2-12.0 [facility] Comment on above: Performed By: #### L 501.2300, L100.0100, L500.4050 ####[facility] [address] [place], [address] Platelets (Bld) [#/Vol] 303 10*3/uL Normal 150-450 [facility] Comment on above: Performed By: #### L 501.2300, L100.0100, L500.4050 ####[facility] [address] [place], [address] RBC (Bld) [#/Vol] 4.04 10*6/uL Low 4.6-6.2 [facility] Comment on above: Performed By: #### L 501.2300, L100.0100, L500.4050 ####[facility] [address] [place], [address] RDW SD 39.1 fl Normal 35.1-43.9 [facility] Comment on above: Performed By: #### L 501.2300, L100.0100, L500.4050 ####[facility] [address] [place], [address] WBC (Bld) [#/Vol] 7.9 10*3/uL Normal 4.4-11.0 [facility] Comment on above: Performed By: #### L 501.2300, L100.0100, L500.4050 ####[facility] [address] [place], [address] CDIFF (PCR)on 11-06-2024 CDIFF Is the patient recei ving laxatives? N New/unexplained onset of 3 or more stools in past 24 hrs? Y 027 027 NAP1-B1 Presumptive Negative *for epidemiolologic???use C. Diff PCR Negative- No toxigenic C. Diff Detected Normal [facility] Comment on above: Performed By: #### M 100.0605, M100.6796, M100.637, M600.5000 ####[facility] [address] [place], [address] Calculated total iron bindin g capacityOrdered By: Darrel Sanders on 11-06-2024 Total Iron Binding Capacity 270 ug/dL 250-450 [facility] Clostridium difficile detect ion by polymerase chain reactionOrdered By: Darrel Sanders on 11-06-2024 C. difficile DNA BLESSING+probe Ql (Unsp spec) [facility] Colonoscopy Reporton 025 Colonoscopy Report Normal [facility] Metabolic Prof ilon 11-06-2024 Albumin [Mass/Vol] 3.9 g/dL Normal 3.4-4.8 [facility] Comment on above: Performed By: #### L 501.2300, L100.0100, L500.4050 ####[facility] [address] [place], [address] Albumin/Globulin [Mass ratio] 1.4 {ratio} Normal 0.9-2.4 [facility] Comment on above: Performed By: #### L 501.2300, L100.0100, L500.4050 ####[facility] [address] [place], [address] ALK PHOS 101 U/L Normal 40-129 [facility] Comment on above: Performed By: #### L 501.2300, L100.0100, L500.4050 ####[facility] [address] [place], [address] ALT [Catalytic activity/Vol] 14 U/L Normal <=46 [facility] Comment on above: Performed By: #### L 501.2300, L100.0100, L500.4050 ####[facility] [address] [place], [address] AST [Catalytic activity/Vol] 22 U/L Normal <=37 [facility] Comment on above: Performed By: #### L 501.2300, L100.0100, L500.4050 ####[facility] [address] [place], [address] Bilirubin [Mass/Vol] 0.64 mg/dL Normal 0.00-1.30 [facility] Comment on above: Performed By: #### L 501.2300, L100.0100, L500.4050 ####[facility] [address] [place], [address] BUN/CRE 14.4 RATIO Normal 10-20 [facility] Comment on above: Performed By: #### L 501.2300, L100.0100, L500.4050 ####[facility] [address] [place], [address] Calcium [Mass/Vol] 8.8 mg/dL Normal 7.6-11.0 [facility] Comment on above: Performed By: #### L 501.2300, L100.0100, L500.4050 ####[facility] [address] [place], [address] Chloride [Moles/Vol] 96 mmol/L Low 98-108 [facility] Comment on above: Performed By: #### L 501.2300, L100.0100, L500.4050 ####[facility] [address] [place], [address] CO2 [Moles/Vol] 21.7 mmol/L Normal 21.0-32.0 [facility] Comment on above: Performed By: #### L 501.2300, L100.0100, L500.4050 ####[facility] [address] [place], [address] Creatinine [Mass/Vol] 0.97 mg/dL Normal 0.70-1.20 [facility] Comment on above: Performed By: #### L 501.2300, L100.0100, L500.4050 ####[facility] [address] [place], [address] ECRCL 56.79 ml/min Normal 50-250 [facility] Comment on above: Performed By: #### L 501.2300, L100.0100, L500.4050 ####[facility] [address] [place], [address] GAP 12 Normal 5-15 [facility] Comment on above: Performed By: #### L 501.2300, L100.0100, L500.4050 ####[facility] [address] [place], [address] GFR/1.73 sq M.predicted among non-blacks MDRD (S/P/Bld) [Vol rate/Area] 79 mL/min/{1.73_m2} Normal >60 [facility] Comment on above: Result Comment: mL/m in/1.73m2 CKD-EPI Creatinine Equation (2020) Performed By: #### L 501.2300, L100.0100, L500.4050 ####[facility] [address] [place], [address] Globulin (S) [Mass/Vol] 2.8 g/dL Normal 2.2-4.2 [facility] Comment on above: Performed By: #### L 501.2300, L100.0100, L500.4050 ####[facility] [address] [place], [address] Glucose [Mass/Vol] 99 mg/dL Normal 70-99 [facility] Comment on above: Performed By: #### L 501.2300, L100.0100, L500.4050 ####[facility] [address] [place], [address] Potassium [Moles/Vol] 4.1 mmol/L Normal 3.3-5.1 [facility] Comment on above: Performed By: #### L 501.2300, L100.0100, L500.4050 ####[facility] [address] [place], [address] Sodium [Moles/Vol] 130 mmol/L Low 133-145 [facility] Comment on above: Performed By: #### L 501.2300, L100.0100, L500.4050 ####[facility] [address] [place], [address] T PROT 6.7 g/dL Normal 5.9-8.4 [facility] Comment on above: Performed By: #### L 501.2300, L100.0100, L500.4050 ####[facility] [address] [place], [address] Urea nitrogen [Mass/Vol] 14 mg/dL Normal 4-19 [facility] Comment on above: Performed By: #### L 501.2300, L100.0100, L500.4050 ####[facility] [address], [address] ENTERIC PATHOGEN PANEL STOOL on 11-06-2024 EP PANEL Normal [facility] Comment on above: Performed By: #### M 100.0605, M100.6796, M100.637, M600.5000 ####[facility] [address] [place], [address] Emergency Department Summary on 11-06-2024 Emergency Department Summary Normal [facility] Ferritinon 11-06-2024 Ferritin [Mass/Vol] 138 ng/mL Normal 37-417 [facility] Comment on above: Performed By: #### L 501.9520, L503.6550, L503.0106, L503.6030, L501.7300 ####[facility] [address] [place], [place], [address] H AND P Exam - Hospitaliston 11-06-2024 H&P Exam - Hospitalist Normal [facility] Iron (Unsp spec) [Mass/Mass] Ordered By: Darrel Sanders on 11-06-2024 Iron [Mass/Vol] 50 ug/dL Low 65-175 [facility] Iron measurement (mass/mass) Ordered By: Darrel Sanders on 11-06-2024 Iron (Unsp spec) [Mass/Mass] 50 ug/dL Low 65-175 [facility] Iron saturation [Mass fracti on]Ordered By: Darrel Sanders on 11-06-2024 Iron Saturation 19.0 % 9-55 [facility] Iron+Iron Binding Capacityon 11-06-2024 Iron [Mass/Vol] 50 ug/dL Low 65-175 [facility] Comment on above: Performed By: #### L 501.9520, L503.6550, L503.0106, L503.6030, L501.7300 ####[facility] [address] [place], [address] IRON SATURATION 19.0 Normal 9-55 [facility] Comment on above: Performed By: #### L 501.9520, L503.6550, L503.0106, L503.6030, L501.7300 ####[facility] [address] [place], [address] TIBC 270 ug/dL Normal 250-450 [facility] Comment on above: Performed By: #### L 501.9520, L503.6550, L503.0106, L503.6030, L501.7300 ####[facility] [address] [place], [address] UIBC 220 ug/dL Low 228-428 [facility] Comment on above: Performed By: #### L 501.9520, L503.6550, L503.0106, L503.6030, L501.7300 ####[facility] [address] [place], [address] L499.0042on 11-06-2024 Trop T High Sen 23 ng/L High <=22 [facility] Comment on above: Performed By: #### L 499.0042 ####[facility] [address] [place], [address] L499.0043on 11-06-2024 Trop T High Sen 19 ng/L Normal <=22 [facility] Comment on above: Performed By: #### L 499.0043 ####[facility] [address] [place], [address] L501.4021on 11-06-2024 Trop T High Sen 18 ng/L Normal <=22 [facility] Comment on above: Performed By: #### L 501.4021 ####[facility] [address] [place], [place], [address] Laboratory - Chemistry and C hemistry - challengeOrdered By: Darrel Sanders on 11-06-2024 AST [Catalytic activity/Vol] 22 U/L <38 [facility] Lactoferrin IA Ql (Stl)Order ed By: Darrel Sanders on 11-06-2024 Stool Lactoferrin [facility] MR/CON.PCM.GIon 11-06-2024 MR/CON.PCM.GI Normal [facility] MR/POSTOP.ANEon 11-06-2024 MR/POSTOP.ANE Normal [facility] MR/ZOKEHPYW6pv 11-06-2024 MR/POSTOPAN2 Normal [facility] Magnesiumon 11-06-2024 Magnesium [Mass/Vol] 2.3 mg/dL High 1.5-2.2 [facility] Comment on above: Performed By: #### L 501.5200 ####[facility] [address] [place], [address] No Panel InformationOrdered By: Darrel Sanders on 11-06-2024 Unsaturated Iron Binding Capacity 220 ug/dL Low 228-428 [facility] 22 U/L <38 [facility] 220 ug/dL Low 228-428 [facility] Osmolality (U) [Osmolality]O rdered By: Darrel Sanders on 11-06-2024 Urine Osmolality 363 mOsm/KG >50 [facility] Comment on above: Normal Urine Referen ce Ranges Random: 50 - 1200 mOsm/kg H20 depending on fluid intake Random: >850 mOsm/kg after 12 hour fluid restriction 24 hour: ~300 - 900 mOsm/kg H2O Osmolality urOrdered By: Esdras Sanders on 11-06-2024 Osmolality (U) [Osmolality] 363 mOsm/KG >50 [facility] Comment on above: Normal Urine Referen ce Ranges Random: 50 - 1200 mOsm/kg H20 depending on fluid intake Random: >850 mOsm/kg after 12 hour fluid restriction 24 hour: ~300 - 900 mOsm/kg H2O Osmolality, Serumon 11-07-19 25 OSMOLALITY,SER 279 mOsm/KG Low 280-301 [facility] Comment on above: Performed By: #### L 501.9520, L503.6550, L503.0106, L503.6030, L501.7300 ####[facility] [address], [address] Osmolality, Urineon 11-07-19 25 OSMOLALITY,UR 363 mOsm/KG Normal [facility] Comment on above: Result Comment: Norm al Urine Reference Ranges Random: 50 - 1200 mOsm/kg H20 depending on fluid intake Random: >850 mOsm/kg after 12 hour fluid restriction 24 hour: 300 - 900 mOsm/kg H2O Performed By: #### L 501.7400 ####[facility] [address] [place], [address] Osmolality, serumOrdered By: Darrel Sanders on 11-06-2024 Serum Osmolality 279 mOsm/KG Low 280-301 [facility] Ova and parasitesOrdered By: Darrel Sanders on 11-06-2024 Ova and Parasites [facility] Phosphoruson 11-06-2024 Phosphate [Mass/Vol] 2.6 mg/dL Low 2.7-4.5 [facility] Comment on above: Performed By: #### L 501.2300, L100.0100, L500.4050 ####[facility] [address] [place], [address] Serum globulin measurementOr dered By: Darrel Sanders on 11-06-2024 Globulin (S) [Mass/Vol] 2.8 g/dL 2.2-4.2 [facility] Serum or plasma alanine carrion otransferase (ALT) measurementOrdered By: Darrel Sanders on 11-06-2024 ALT [Catalytic activity/Vol] 14 U/L <47 [facility] Serum or plasma albumin shagufta urement (mass/volume)Ordered By: Darrel Sanders on 11-06-2024 Albumin [Mass/Vol] 3.9 g/dL 3.4-4.8 [facility] Serum or plasma albumin/glob ulin mass ratioOrdered By: Darrel Sanders on 11-06-2024 Albumin/Globulin [Mass ratio] 1.4 {ratio} 0.9-2.4 [facility] Serum or plasma alkaline airam sphatase measurementOrdered By: Darrel Sanders on 11-06-2024 ALP [Catalytic activity/Vol] 101 U/L 40-129 [facility] Serum or plasma ferritin francy surement (mass/volume)Ordered By: Darrel Sanders on 11-06-2024 Ferritin [Mass/Vol] 138 ng/mL 37-417 [facility] Serum or plasma iron saturat ion measurement (mass fraction)Ordered By: Darrel Sanders on 11-06-2024 Iron saturation [Mass fraction] 19.0 % 9-55 [facility] Serum phosphorus measurement Ordered By: Darrel Sanders on 11-06-2024 Phosphorus Level 2.6 mg/dL Low 2.7-4.5 [facility] Stool Lactoferrin/WBCon 04-0 WBCST Is the patient recei ving laxatives? N New/unexplained onset of 3 or more stools in past 24 hrs? Y Normal Reference Range = Negative Fecal WBC Lactoferrin A Positive: Fecal WBC Lactoferrin present A Normal [facility] Comment on above: Performed By: #### M 100.0605, M100.6796, M100.637, M600.5000 ####[facility] [address] [place], [address] Stool Occult Blood iFOBon STOB Positive Normal [facility] Comment on above: Performed By: #### B TS, L503.6005, L500.2500, M100.7900, L300.4310, L100.0100, L300.3900 ####[facility] [address] [place], [address] Stool enteric pathogen panel by probe and target amplification methodOrdered By: Darrel Sanders on 11-06-2024 Enteric Bacteriology [facility] Stool lactoferrin detection by immunoassayOrdered By: Darrel Sanders on 11-06-2024 Lactoferrin IA Ql (Stl) [facility] TSH DL <= 0.005 mIU/L QnOrde red By: Darrel Sanders on 04-08-2025 Thyroid Stimulating Hormone (TSH) 1.900 uIU/mL 0.300-4.200 [facility] TSH Qn 1.900 uIU/mL 0.300-4.200 [facility] Thyroid Stim Hormone (TSH)on 11-06-2024 TSH 1.900 uIU/mL Normal 0.300-4.200 [facility] Comment on above: Performed By: #### L 501.9520, L503.6550, L503.0106, L503.6030, L501.7300 ####[facility] [address] [place], [place], [id number] Total proteinOrdered By: Esdras Sanders on 11-06-2024 Protein [Mass/Vol] 6.7 g/dL 5.9-8.4 [facility] Troponin T.cardiac High sens itivity method [Mass/Vol]Ordered By: Darrel Sanders on 11-06-2024 Troponin T High Sensitivity 4 Hour 19 ng/L <22 [facility] Troponin T High Sensitivity 2 Hour 23 ng/L High <22 [facility] Troponin T High Sensitivity 18 ng/L <22 [facility] Troponin T.cardiac [Mass/vol ume] in Serum or Plasma by High sensitivity methodOrdered By: Darrel Sanders on 11-06-2024 Troponin T.cardiac High sensitivity method [Mass/Vol] 19 ng/L <22 [facility] Troponin T.cardiac High sensitivity method [Mass/Vol] 23 ng/L High <22 [facility] Troponin T.cardiac High sensitivity method [Mass/Vol] 18 ng/L <22 [facility] Vitamin B12on 11-06-2024 Cobalamin (Vitamin B12) [Mass/Vol] 790 pg/mL Normal 180-914 [facility] Comment on above: Performed By: #### L 501.9520, L503.6550, L503.0106, L503.6030, L501.7300 ####[facility] [address] [place], [place], [address] Vitamin B12 ser/plasOrdered By: Darrel Sanders on 11-06-2024 Cobalamin (Vitamin B12) [Mass/Vol] 790 pg/mL 180-914 [facility] Absolute neutrophil countOrd ered By: Harrison Linares on 11-05-2024 Neutrophils (Bld) [#/Vol] 6.9 10*3/uL 2.0-7.7 [facility] Activated partial thrombopla stin time (aPTT) in platelet poor plasma by coagulation aOrdered By: Harrison Linares on 11-05-2024 aPTT Coag (PPP) [Time] 22.1 s Low 24.1-36.2 [facility] Anion gap in Serum or Plasma Ordered By: Harrison Linares on 11-05-2024 Anion gap [Moles/Vol] 12 mmol/L - [facility] BUN/creatinine ratioOrdered By: Harrison Linares on 11-05-2024 Urea nitrogen/Creatinine [Mass ratio] 15.4 mg/mg - [facility] Basic Metabolic Profile (BMP )on 11-05-2024 BUN/CRE 15.4 RATIO Normal 05-20 [facility] Comment on above: Performed By: #### B TS, L503.6005, L500.2500, M100.7900, L300.4310, L100.0100, L300.3900 ####[facility] [address] [place], [address] Calcium [Mass/Vol] 9.0 mg/dL Normal 7.6-11.0 [facility] Comment on above: Performed By: #### B TS, L503.6005, L500.2500, M100.7900, L300.4310, L100.0100, L300.3900 ####[facility] [address] [place], [address] Chloride [Moles/Vol] 90 mmol/L Low 98-108 [facility] Comment on above: Performed By: #### B TS, L503.6005, L500.2500, M100.7900, L300.4310, L100.0100, L300.3900 ####[facility] [address] [place], [address] CO2 [Moles/Vol] 23.8 mmol/L Normal 21.0-32.0 [facility] Comment on above: Performed By: #### B TS, L503.6005, L500.2500, M100.7900, L300.4310, L100.0100, L300.3900 ####[facility] [address] [place], [address] Creatinine [Mass/Vol] 0.92 mg/dL Normal 0.70-1.20 [facility] Comment on above: Performed By: #### B TS, L503.6005, L500.2500, M100.7900, L300.4310, L100.0100, L300.3900 ####[facility] [address] [place], [place], [id number] ECRCL 59.87 ml/min Normal 50-250 [facility] Comment on above: Performed By: #### B TS, L503.6005, L500.2500, M100.7900, L300.4310, L100.0100, L300.3900 ####[facility] [address] [place], [address] GAP 12 Normal 5-15 [facility] Comment on above: Performed By: #### B TS, L503.6005, L500.2500, M100.7900, L300.4310, L100.0100, L300.3900 ####[facility] [address] [place], [address] GFR/1.73 sq M.predicted among non-blacks MDRD (S/P/Bld) [Vol rate/Area] 84 mL/min/{1.73_m2} Normal >60 [facility] Comment on above: Result Comment: mL/m in/1.73m2 CKD-EPI Creatinine Equation (2020) Performed By: #### B TS, L503.6005, L500.2500, M100.7900, L300.4310, L100.0100, L300.3900 ####[facility] [address] [place], [address] Glucose [Mass/Vol] 110 mg/dL High 70-99 [facility] Comment on above: Performed By: #### B TS, L503.6005, L500.2500, M100.7900, L300.4310, L100.0100, L300.3900 ####[facility] [address] [place], [address] Potassium [Moles/Vol] 4.0 mmol/L Normal 3.3-5.1 [facility] [facility] Comment on above: Performed By: #### B TS, L503.6005, L500.2500, M100.7900, L300.4310, L100.0100, L300.3900 ####[facility] [address] [place], [address] Sodium [Moles/Vol] 126 mmol/L Low 133-145 [facility] Comment on above: Performed By: #### B TS, L503.6005, L500.2500, M100.7900, L300.4310, L100.0100, L300.3900 ####[facility] [address] [place], [address] Urea nitrogen [Mass/Vol] 14 mg/dL Normal 4-19 [facility] Comment on above: Performed By: #### B TS, L503.6005, L500.2500, M100.7900, L300.4310, L100.0100, L300.3900 ####[facility] [address] [place], [address] Basophil percentageOrdered B y: Harrison Linares on 11-05-2024 Basophils/100 WBC (Bld) 0.2 % 0-1 [facility] CBC W/Diff, Automatedon Absolute Lymph 1.16 X10 3/uL Normal 0.83-4.51 [facility] Comment on above: Order Comment: REDRA W. PREVIOUS SPECIMEN REJECTED DUE TOCLOTTED. 11/05/242304 Quintin R Cardenas. Performed By: #### L 100.0100 ####[facility] [address] [place], [address] Absolute Neut 6.9 X10 3/uL Normal 2.0-7.7 [facility] Comment on above: Order Comment: REDRA W. PREVIOUS SPECIMEN REJECTED DUE TOCLOTTED. 11/05/242304 Quintin R Cardenas. Performed By: #### L 100.0100 ####[facility] [address] [place], [address] Basophils/100 WBC (Bld) 0.2 % Normal 0-1 [facility] Comment on above: Order Comment: REDRA W. PREVIOUS SPECIMEN REJECTED DUE TOCLOTTED. 11/05/242304 Quintin R Cardenas. Performed By: #### L 100.0100 ####[facility] [address] [place], [address] Eosinophils/100 WBC (Bld) 0.6 % Normal 0-5 [facility] Comment on above: Order Comment: REDRA W. PREVIOUS SPECIMEN REJECTED DUE TOCLOTTED. 11/05/242304 Quintin R Cardenas. Performed By: #### L 100.0100 ####[facility] [address] [place], [address] Erythrocyte distribution width (RBC) [Ratio] 12.2 % Normal 11.6-14.6 [facility] Comment on above: Order Comment: REDRA W. PREVIOUS SPECIMEN REJECTED DUE TOCLOTTED. 11/05/242304 Quintin R Cardenas. Performed By: #### L 100.0100 ####[facility] [address] [place], [address] Hematocrit (Bld) [Volume fraction] 32.9 % Low 40-54 [facility] Comment on above: Order Comment: REDRA W. PREVIOUS SPECIMEN REJECTED DUE TOCLOTTED. 11/05/242304 Quintin R Cardenas. Performed By: #### L 100.0100 ####[facility] [address] [place], [address] Hemoglobin (Bld) [Mass/Vol] 11.5 g/dL Low 13.0-16.5 [facility] Comment on above: Order Comment: REDRA W. PREVIOUS SPECIMEN REJECTED DUE TOCLOTTED. 11/05/242304 Quintin R Cardenas. Performed By: #### L 100.0100 ####[facility] [address] [place], [address] IG% 0.600 Normal 0.0-0.9 [facility] Comment on above: Order Comment: REDRA W. PREVIOUS SPECIMEN REJECTED DUE TOCLOTTED. 11/05/242304 Quintin R Cardenas. Result Comment: IG% - Immature Granulocytes (promyelocytes, myelocytes andmetamyelocytes) > 1% indicates that a LEFT SHIFT is Present. Performed By: #### L 100.0100 ####[facility] [address] [place], [address] Lymphocytes/100 WBC (Bld) 12.9 % Low 19-41 [facility] Comment on above: Order Comment: REDRA W. PREVIOUS SPECIMEN REJECTED DUE TOCLOTTED. 11/05/242304 Quintin R Cardenas. Performed By: #### L 100.0100 ####[facility] [address] [place], [address] MCH (RBC) [Entitic mass] 30.5 pg Normal 27.0-32.0 [facility] Comment on above: Order Comment: REDRA W. PREVIOUS SPECIMEN REJECTED DUE TOCLOTTED. 11/05/242304 Quintin R Cardenas. Performed By: #### L 100.0100 ####[facility] [address] [place], [address] MCHC (RBC) [Mass/Vol] 35.0 g/dL Normal 32-36 [facility] Comment on above: Order Comment: REDRA W. PREVIOUS SPECIMEN REJECTED DUE TOCLOTTED. 11/05/242304 Quintin R Cardenas. Performed By: #### L 100.0100 ####[facility] [address] [place], [address] MCV (RBC) [Entitic vol] 87.3 fL Normal 80-94 [facility] Comment on above: Order Comment: REDRA W. PREVIOUS SPECIMEN REJECTED DUE TOCLOTTED. 11/05/242304 Quintin R Cardenas. Performed By: #### L 100.0100 ####[facility] [address] [place], [address] Monocytes/100 WBC (Bld) 8.9 % Normal 0-10 [facility] Comment on above: Order Comment: REDRA W. PREVIOUS SPECIMEN REJECTED DUE TOCLOTTED. 11/05/242304 Quintin R Cardenas. Performed By: #### L 100.0100 ####[facility] [address] [place], [address] Neutrophils/100 WBC (Bld) 76.8 % High 47-70 [facility] Comment on above: Order Comment: REDRA W. PREVIOUS SPECIMEN REJECTED DUE TOCLOTTED. 11/05/242304 Quintin R Cardenas. Performed By: #### L 100.0100 ####[facility] [address] [place], [address] Nucleated RBC (Bld) [#/Vol] 0 10*3/uL Normal 0-5 [facility] Comment on above: Order Comment: REDRA W. PREVIOUS SPECIMEN REJECTED DUE TOCLOTTED. 11/05/242304 Quintin R Cardenas. Performed By: #### L 100.0100 ####[facility] [address] [place], [address] Platelet mean volume (Bld) [Entitic vol] 8.7 fL Normal 6.2-12.0 [facility] Comment on above: Order Comment: REDRA W. PREVIOUS SPECIMEN REJECTED DUE TOCLOTTED. 11/05/242304 Quintin R Cardenas. Performed By: #### L 100.0100 ####[facility] [address] [place], [address] Platelets (Bld) [#/Vol] 274 10*3/uL Normal 150-450 [facility] Comment on above: Order Comment: REDRA W. PREVIOUS SPECIMEN REJECTED DUE TOCLOTTED. 11/05/242304 Quintin R Cardenas. Performed By: #### L 100.0100 ####[facility] [address] [place], [address] RBC (Bld) [#/Vol] 3.77 10*6/uL Low 4.6-6.2 [facility] Comment on above: Order Comment: REDRA W. PREVIOUS SPECIMEN REJECTED DUE TOCLOTTED. 11/05/242304 Quintin R Cardenas. Performed By: #### L 100.0100 ####[facility] [address] [place], [address] RDW SD 39.0 fl Normal 35.1-43.9 [facility] Comment on above: Order Comment: REDRA W. PREVIOUS SPECIMEN REJECTED DUE TOCLOTTED. 11/05/242304 Quintin R Cardenas. Performed By: #### L 100.0100 ####[facility] [address] [place], [address] WBC (Bld) [#/Vol] 9.0 10*3/uL Normal 4.4-11.0 [facility] Comment on above: Order Comment: REDRA W. PREVIOUS SPECIMEN REJECTED DUE TOCLOTTED. 11/05/242304 Quintin R Cardenas. Performed By: #### L 100.0100 ####[facility] [address] [place], [address] Absolute Neut Normal 2.0-7.7 [facility] Comment on above: Result Comment: This specimen has been REJECTED due to Laboratory criteria:Clotted.CARGABRITE has been notified of need of recollection.11/05/242304 Quintin R Cardenas Performed By: #### B TS, L503.6005, L500.2500, M100.7900, L300.4310, L100.0100, L300.3900 ####[facility] [address] [place], [place], [id number] HCT Normal 40-54 [facility] Comment on above: Result Comment: This specimen has been REJECTED due to Laboratory criteria:Clotted.CARGABRITE has been notified of need of recollection.11/05/242304 Quintin R Cardenas Performed By: #### B TS, L503.6005, L500.2500, M100.7900, L300.4310, L100.0100, L300.3900 ####[facility] [address] [place], [place], [phone] HGB Normal 13.0-16.5 [facility] Comment on above: Result Comment: This specimen has been REJECTED due to Laboratory criteria:Clotted.CARGABRITE has been notified of need of recollection.11/05/242304 Quintin R Cardenas Performed By: #### B TS, L503.6005, L500.2500, M100.7900, L300.4310, L100.0100, L300.3900 ####[facility] [address] [place], [place], [phone] MCH Normal 27.0-32.0 [facility] Comment on above: Result Comment: This specimen has been REJECTED due to Laboratory criteria:Clotted.CARGABRITE has been notified of need of recollection.11/05/242304 Quintin R Cardenas Performed By: #### B TS, L503.6005, L500.2500, M100.7900, L300.4310, L100.0100, L300.3900 ####[facility] [address] [place], [address] MCHC Normal 32-36 [facility] Comment on above: Result Comment: This specimen has been REJECTED due to Laboratory criteria:Clotted.CARGABRITE has been notified of need of recollection.11/05/242304 Quintin R Cardenas Performed By: #### B TS, L503.6005, L500.2500, M100.7900, L300.4310, L100.0100, L300.3900 ####[facility] [address] [place], [address] MCV Normal 80-94 [facility] Comment on above: Result Comment: This specimen has been REJECTED due to Laboratory criteria:Clotted.CARGABRITE has been notified of need of recollection.11/05/242304 Quintin R Cardenas Performed By: #### B TS, L503.6005, L500.2500, M100.7900, L300.4310, L100.0100, L300.3900 ####[facility] [address] [place], [address] NEUT% Normal 47-70 [facility] Comment on above: Result Comment: This specimen has been REJECTED due to Laboratory criteria:Clotted.CARGABRITE has been notified of need of recollection.11/05/242304 Quintin R Cardenas Performed By: #### B TS, L503.6005, L500.2500, M100.7900, L300.4310, L100.0100, L300.3900 ####[facility] [address] [place], [address] PLT Normal 150-450 [facility] Comment on above: Result Comment: This specimen has been REJECTED due to Laboratory criteria:Clotted.CARGABRITE has been notified of need of recollection.11/05/242304 Quintin R Cardenas Performed By: #### B TS, L503.6005, L500.2500, M100.7900, L300.4310, L100.0100, L300.3900 ####[facility] [address] [place], [address] RBC Normal 4.6-6.2 [facility] Comment on above: Result Comment: This specimen has been REJECTED due to Laboratory criteria:Clotted.CARGABRITE has been notified of need of recollection.11/05/242304 Quintin R Cardenas Performed By: #### B TS, L503.6005, L500.2500, M100.7900, L300.4310, L100.0100, L300.3900 ####[facility] [address] [place], [address] RDW CV Normal 11.6-14.6 [facility] Comment on above: Result Comment: This specimen has been REJECTED due to Laboratory criteria:Clotted.CARGABRITE has been notified of need of recollection.11/05/242304 Quintin R Cardenas Performed By: #### B TS, L503.6005, L500.2500, M100.7900, L300.4310, L100.0100, L300.3900 ####[facility] [address] [place], [address] RDW SD Normal 35.1-43.9 [facility] Comment on above: Result Comment: This specimen has been REJECTED due to Laboratory criteria:Clotted.CARGABRITE has been notified of need of recollection.11/05/242304 Quintin R Cardenas Performed By: #### B TS, L503.6005, L500.2500, M100.7900, L300.4310, L100.0100, L300.3900 ####[facility] [address] [place], [address] WBC Normal 4.4-11.0 [facility] Comment on above: Result Comment: This specimen has been REJECTED due to Laboratory criteria:Clotted.CARGABRITE has been notified of need of recollection.11/05/242304 Quintin R Cardenas Performed By: #### B TS, L503.6005, L500.2500, M100.7900, L300.4310, L100.0100, L300.3900 ####[facility] [address] [place], [place], [phone] CTA Abd/Pelvis W/WO Contrast on 11-05-2024 CTA Abd/Pelvis W/WO Contrast Normal [facility] Carbon dioxide, total [Moles /volume] in Central venous bloodOrdered By: Harrison Linares on 11-05-2024 CO2 [Moles/Vol] 23.8 mmol/L 21.0-32.0 [facility] Chloride assayOrdered By: Erica Linares on 11-05-2024 Chloride [Moles/Vol] 90 mmol/L Low 98-108 [facility] Eosinophil percentageOrdered By: Harrison Linares on 11-05-2024 Eosinophils/100 WBC (Bld) 0.6 % 0-5 [facility] Erythrocyte distribution wid th (RBC) [Ratio]Ordered By: Harrison Linares on 11-05-2024 Erythrocyte distribution width (RBC) [Entitic vol] 39.0 fL 35.1-43.9 [facility] Erythrocyte distribution wid th ratioOrdered By: Harrison Linares on 11-05-2024 Erythrocyte distribution width (RBC) [Ratio] 12.2 % 11.6-14.6 [facility] Estimation of creatinine dunia aranceOrdered By: Harrison Linares on 11-05-2024 Estimated Creatinine Clearance Calc 59.87 ml/min 50-250 [facility] GFR/1.73 sq M.predicted gregg g non-blacks MDRD (S/P/Bld) [Vol rate/Area]Ordered By: Harrison Linares on 11-05-2024 Estimated GFR (MDRD) Non-Af Amer 84 >60 [facility] Comment on above: mL/min/1.73m2 CKD-EP I Creatinine Equation (2020) Hematocrit Auto (Bld) [Volum e fraction]Ordered By: Harrison Linares on 11-05-2024 Hematocrit (Bld) [Volume fraction] 32.9 % Low 40-54 [facility] Hemoglobin measurementOrdere d By: Harrison Linares on 11-05-2024 Hemoglobin (Bld) [Mass/Vol] 11.5 g/dL Low 13.0-16.5 [facility] Immature granulocytes/100 WB C Auto (Bld)Ordered By: Harrison Linares on 11-05-2024 Immature granulocytes/100 WBC (Bld) 0.600 % 0.0-0.9 [facility] Comment on above: IG% - Immature Granu locytes (promyelocytes, myelocytes and metamyelocytes) > 1% indicates that a LEFT SHIFT is Present. International normalized rat io (INR) calculationOrdered By: Harrison Linares on 11-05-2024 INR Coag (Bld) [Relative time] 0.9 {INR} [facility] Lactic Acidon 11-05-2024 Lactate [Moles/Vol] mmol/L Normal 0.0-2.0 [facility] Comment on above: Order Comment: Y Performed By: #### B TS, L503.6005, L500.2500, M100.7900, L300.4310, L100.0100, L300.3900 ####[facility] [address] [place], [address] Lactic acid measurementOrder ed By: Harrison Linares on 11-05-2024 Lactate [Moles/Vol] mmol/L 0.0-2.0 [facility] Lower GI hemoglobin IA Ql (S tl)Ordered By: Harrison Linares on 11-05-2024 Stool Occult Blood (EDINSON) Positive Abnormal [facility] Lymphocytes Auto (Unsp spec) [#/Vol]Ordered By: Harrison Linares on 11-05-2024 Lymphocytes (Bld) [#/Vol] 1.16 10*3/uL 0.83-4.51 [facility] Lymphocytes/100 WBC Auto (Un sp spec)Ordered By: Harrison Linares on 11-05-2024 Lymphocytes/100 WBC (Bld) 12.9 % Low 19-41 [facility] MCV (mean corpuscular volume ) determinationOrdered By: Harrison Linares on 11-05-2024 MCV (RBC) [Entitic vol] 87.3 fL 80-94 [facility] Magnesium (Unsp spec) [Mass/ Vol]Ordered By: Darrel Sanders on 11-05-2024 Magnesium [Mass/Vol] 2.3 mg/dL High 1.5-2.2 [facility] Magnesium measurement (mass/ volume)Ordered By: Darrel Sanders on 11-05-2024 Magnesium (Unsp spec) [Mass/Vol] 2.3 mg/dL High 1.5-2.2 [facility] Mean corpuscular hemoglobin (MCH) determinationOrdered By: Harrison Linares on 11-05-2024 MCH (RBC) [Entitic mass] 30.5 pg 27.0-32.0 [facility] Mean corpuscular hemoglobin concentration (MCHC) determinationOrdered By: Harrison Linares on 11-05-2024 MCHC (RBC) [Mass/Vol] 35.0 g/dL 32-36 [facility] Mean platelet volume determi nationOrdered By: Harrison Linares on 11-05-2024 Platelet mean volume (Bld) [Entitic vol] 8.7 fL 6.2-12.0 [facility] Monocyte percentageOrdered B y: Harrison Linares on 11-05-2024 Monocytes/100 WBC (Bld) 8.9 % 0-10 [facility] Neutrophil percentageOrdered By: Harrison Linares on 11-05-2024 Neutrophils/100 WBC (Bld) 76.8 % High 47-70 [facility] Nucleated red blood cell per centageOrdered By: Harrison Linares on 11-05-2024 Nucleated RBC/100 WBC (Bld) [Ratio] 0 % 0-5 [facility] Partial Thromboplast Timeon 11-05-2024 aPTT Coag (Bld) [Time] 22.1 s Low 24.1-36.2 [facility] Comment on above: Performed By: #### B TS, L503.6005, L500.2500, M100.7900, L300.4310, L100.0100, L300.3900 ####[facility] [address] [place], [address] Platelet countOrdered By: Erica Linares on 11-05-2024 Platelets (Bld) [#/Vol] 274 10*3/uL 150-450 [facility] Potassium (Unsp spec) [Mass/ Vol]Ordered By: Harrison Linares on 11-05-2024 Potassium [Moles/Vol] 4.0 mmol/L 3.3-5.1 [facility] Prothrombin Time w/INRon INR Coag (PPP) [Relative time] 0.9 {INR} Normal [facility] Comment on above: Performed By: #### B TS, L503.6005, L500.2500, M100.7900, L300.4310, L100.0100, L300.3900 ####[facility] [address] [place], [place], [id number] PT Coag (PPP) [Time] 12.2 s Normal 11.7-14.9 [facility] Comment on above: Performed By: #### B TS, L503.6005, L500.2500, M100.7900, L300.4310, L100.0100, L300.3900 ####[facility] [address] [place], [place], [id number] Prothrombin timeOrdered By: Harrison Linares on 11-05-2024 PT Coag (PPP) [Time] 12.2 s 11.7-14.9 [facility] RBC Auto (Bld) [#/Vol]Ordere d By: Harrison Linares on 11-05-2024 RBC (Bld) [#/Vol] 3.77 10*6/uL Low 4.6-6.2 [facility] Serum creatinine measurement (mass/volume)Ordered By: Harrison Linares on 11-05-2024 Creatinine [Mass/Vol] 0.92 mg/dL 0.70-1.20 [facility] Serum glucose measurement (m ass/volume)Ordered By: Harrison Linares on 11-05-2024 Glucose [Mass/Vol] 110 mg/dL High 70-99 [facility] Serum or plasma calcium shagufta urement (mass/volume)Ordered By: Harrison Linares on 11-05-2024 Calcium [Mass/Vol] 9.0 mg/dL 7.6-11.0 [facility] Serum or plasma urea nitroge n measurement (mass/volume)Ordered By: Harrison Linares on 11-05-2024 Urea nitrogen [Mass/Vol] 14 mg/dL 4-19 [facility] Sodium levelOrdered By: Dylan Linares on 11-05-2024 Sodium [Moles/Vol] 126 mmol/L Low 133-145 [facility] Stool gastrointestinal hemog lobin detection by immunologic methodOrdered By: Harrison Linares on 11-05-2024 Lower GI hemoglobin IA Ql (Stl) Positive Abnormal [facility] Type AND Screenon 11-05-2024 ABO and Rh group Nom (Bld) Blood group O Rh(D) positive Normal [facility] Comment on above: Order Comment: HGI Performed By: #### B TS, L503.6005, L500.2500, M100.7900, L300.4310, L100.0100, L300.3900 ####[facility] [address] [place], [address] White blood cell (WBC) count Ordered By: Harrison Linares on 11-05-2024 WBC (Bld) [#/Vol] 9.0 10*3/uL 4.4-11.0 [facility] aPTT Coag (PPP) [Time]Ordere d By: Harrison Linares on 11-05-2024 aPTT Coag (Bld) [Time] 22.1 s Low 24.1-36.2 [facility] CNPMendy 11-02-2024 GRACY Telephone (CHRIS) -- JARED RAYMOND ([id number]) 1945 M Date Time Provider Department 11/02/24 PAPI HERNANDEZ During your visit today, we recorded the following information about you: Filomena Rodrigues 11/02/2024 2:33 PM Signed Patient and his daughter stopped in to talk to Jolynn Frias. 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 Please call patients daughter Teresa [phone] Allergies As of Date: 11/02/2024 (No Known Allergies) Date Reviewed: 05/05/2020 Reviewed by: Caro Mo (Rn), RN - Fully Assessed Reason for Visit: Patient Question [[id number]] Prescriptions as of 01/12/2025 - amLODIPine (NORVASC) [...] of Hemorrhage [*03/23/2010 Coronary artery disease involving afognak kern*07/18/2019 History of varicose veins [Z86.79] 07/18/2019 Chest pain, unspecified [R07.9] 07/18/2019 History of CVA (cerebrovascular accident) [Z86.*07/18/2019 Discharge planning issues [Z75.8] 07/18/2019 Preop testing [Z01.818] 07/18/2019 On mechanically assisted ventilation (HCC) [Z99*07/19/2019 07/20/2019 Pain, postoperative, acute [G89.18] 07/19/2019 Stress hyperglycemia [R73.9] 07/19/2019 07/21/2019 Atelectasis [J98.11] 07/20/2019 Transition of care performed with sharing of cl*07/21/2019 Encounter Status:Closed by FILOMENA RODRIGUES on 01/12/25 Normal [facility] Oncology Visit Reporton 04-0 Oncology Visit Report Normal [facility] Carcinoembryonic Antigenon 0 10-26-2024 CEA 25.2 ng/mL High 0.0-4.7 [facility] Comment on above: Order Comment: ADD O N TO BW-ALREADY IN LAB Result Comment: Nons mokers <3.9 Smokers <5.6[employer] Electrochemiluminescence Immunoassay(ECLIA)Values obtained with different assay methods or kitscannot be used interchangeably. Results cannot beinterpreted as absolute evidence of the presence orabsence of malignant disease.Performed at: [place] [id number] Director: Jian Paredes PhD, Phone: [phone] Performed By: #### L 3100.2300 ####[facility] [address] [place], [place], [id number] Abdomen/Pelvis W IV Cont ONL Yon 10-24-2024 Abdomen/Pelvis W IV Cont ONLY Normal [facility] Absolute lymphocyte countOrd ered By: Jerry Hightower on 10-24-2024 Lymphocytes Auto (Unsp spec) [#/Vol] 1.10 10*3/uL 0.83-4.51 [facility] Absolute lymphocyte countOrd ered By: Papi Hernandez on 10-24-2024 Lymphocytes Auto (Unsp spec) [#/Vol] 1.26 10*3/uL 0.83-4.51 [facility] Absolute neutrophil countOrd ered By: Jerry Hightower on 10-24-2024 Neutrophils (Bld) [#/Vol] 6.7 10*3/uL 2.0-7.7 [facility] Absolute neutrophil countOrd ered By: Papi Hernandez on 10-24-2024 Neutrophils (Bld) [#/Vol] 6.5 10*3/uL 2.0-7.7 [facility] Anion gap in Serum or Plasma Ordered By: Jerry Hightower on 10-24-2024 Anion gap [Moles/Vol] 11 mmol/L 5-15 [facility] Anion gap in Serum or Plasma Ordered By: Papi Hernandez on 10-24-2024 Anion gap [Moles/Vol] 9 mmol/L 5- [facility] Automated lymphocyte count a s percentage of total leukocytesOrdered By: Jerry Hightower on 10-24-2024 Lymphocytes/100 WBC Auto (Unsp spec) 12.7 % Low [facility] Automated lymphocyte count a s percentage of total leukocytesOrdered By: Papi Hernandez on 10-24-2024 Lymphocytes/100 WBC Auto (Unsp spec) 14.4 % Low - [facility] BUN/creatinine ratioOrdered By: Jerry Hightower on 10-24-2024 Urea nitrogen/Creatinine [Mass ratio] 11.6 mg/mg 05-20 [facility] BUN/creatinine ratioOrdered By: Papi Hernandez on 10-24-2024 Urea nitrogen/Creatinine [Mass ratio] 12.0 mg/mg 05-20 [facility] Basophil percentageOrdered B y: Jerry Hightower on 10-24-2024 Basophils/100 WBC (Bld) 0.3 % 0-1 [facility] Basophil percentageOrdered B y: Papi Hernandez on 10-24-2024 Basophils/100 WBC (Bld) 0.3 % 0-1 [facility] Bilirubin Test strip Ql (U)O rdered By: Jerry Hightower on 10-24-2024 Bilirubin Ql (U) Negative Negative [facility] Bilirubin, totalOrdered By: Jerry Hightower on 10-24-2024 Bilirubin [Mass/Vol] 0.55 mg/dL 0.00-1.30 [facility] Bilirubin, totalOrdered By: Papi Hernandez on 10-24-2024 Bilirubin [Mass/Vol] 0.50 mg/dL 0.00-1.30 [facility] CBC W/Diff, Automatedon 09-30 Absolute Lymph 1.10 X10 3/uL Normal 0.83-4.51 [facility] Comment on above: Performed By: #### L 500.4050, L501.2450, L100.0100, L503.6005 ####[facility] [address] [place], [address] Absolute Neut 6.7 X10 3/uL Normal 2.0-7.7 [facility] Comment on above: Performed By: #### L 500.4050, L501.2450, L100.0100, L503.6005 ####[facility] [address] [place], [address] Basophils/100 WBC (Bld) 0.3 % Normal 0-1 [facility] Comment on above: Performed By: #### L 500.4050, L501.2450, L100.0100, L503.6005 ####[facility] [address] [place], [address] Eosinophils/100 WBC (Bld) 1.0 % Normal 0-5 [facility] Comment on above: Performed By: #### L 500.4050, L501.2450, L100.0100, L503.6005 ####[facility] [address] [place], [address] Erythrocyte distribution width (RBC) [Ratio] 12.4 % Normal 11.6-14.6 [facility] Comment on above: Performed By: #### L 500.4050, L501.2450, L100.0100, L503.6005 ####[facility] [address] [place], [address] Hematocrit (Bld) [Volume fraction] 37.0 % Low 40-54 [facility] Comment on above: Performed By: #### L 500.4050, L501.2450, L100.0100, L503.6005 ####[facility] [address] [place], [address] Hemoglobin (Bld) [Mass/Vol] 13.1 g/dL Normal 13.0-16.5 [facility] Comment on above: Performed By: #### L 500.4050, L501.2450, L100.0100, L503.6005 ####[facility] [address] [place], [address] IG% 0.500 Normal 0.0-0.9 [facility] Comment on above: Result Comment: IG% - Immature Granulocytes (promyelocytes, myelocytes andmetamyelocytes) > 1% indicates that a LEFT SHIFT is Present. Performed By: #### L 500.4050, L501.2450, L100.0100, L503.6005 ####[facility] [address] [place], [address] Lymphocytes/100 WBC (Bld) 12.7 % Low 19-41 [facility] Comment on above: Performed By: #### L 500.4050, L501.2450, L100.0100, L503.6005 ####[facility] [address] [place], [address] MCH (RBC) [Entitic mass] 30.8 pg Normal 27.0-32.0 [facility] Comment on above: Performed By: #### L 500.4050, L501.2450, L100.0100, L503.6005 ####[facility] [address] [place], [address] MCHC (RBC) [Mass/Vol] 35.4 g/dL Normal 32-36 [facility] Comment on above: Performed By: #### L 500.4050, L501.2450, L100.0100, L503.6005 ####[facility] [address] [place], [address] MCV (RBC) [Entitic vol] 87.1 fL Normal 80-94 [facility] Comment on above: Performed By: #### L 500.4050, L501.2450, L100.0100, L503.6005 ####[facility] [address] [place], [address] Monocytes/100 WBC (Bld) 8.4 % Normal 0-10 [facility] Comment on above: Performed By: #### L 500.4050, L501.2450, L100.0100, L503.6005 ####[facility] [address] [place], [address] Neutrophils/100 WBC (Bld) 77.1 % High 47-70 [facility] Comment on above: Performed By: #### L 500.4050, L501.2450, L100.0100, L503.6005 ####[facility] [address] [place], [address] Nucleated RBC (Bld) [#/Vol] 0 10*3/uL Normal 0-5 [facility] Comment on above: Performed By: #### L 500.4050, L501.2450, L100.0100, L503.6005 ####[facility] [address] [place], [address] Platelet mean volume (Bld) [Entitic vol] 9.0 fL Normal 6.2-12.0 [facility] Comment on above: Performed By: #### L 500.4050, L501.2450, L100.0100, L503.6005 ####[facility] [address] [place], [address] Platelets (Bld) [#/Vol] 307 10*3/uL Normal 150-450 [facility] Comment on above: Performed By: #### L 500.4050, L501.2450, L100.0100, L503.6005 ####[facility] [address] [place], [address] RBC (Bld) [#/Vol] 4.25 10*6/uL Low 4.6-6.2 [facility] Comment on above: Performed By: #### L 500.4050, L501.2450, L100.0100, L503.6005 ####[facility] [address] [place], [address] RDW SD 39.6 fl Normal 35.1-43.9 [facility] Comment on above: Performed By: #### L 500.4050, L501.2450, L100.0100, L503.6005 ####[facility] [address] [place], [address] WBC (Bld) [#/Vol] 8.7 10*3/uL Normal 4.4-11.0 [facility] Comment on above: Performed By: #### L 500.4050, L501.2450, L100.0100, L503.6005 ####[facility] [address] [place], [address] Absolute Lymph 1.26 X10 3/uL Normal 0.83-4.51 [facility] Comment on above: Performed By: #### L 900.0098, L504.2610, L100.0100, L500.4050 ####[facility] [address] [place], [address] Absolute Neut 6.5 X10 3/uL Normal 2.0-7.7 [facility] Comment on above: Performed By: #### L 900.0098, L504.2610, L100.0100, L500.4050 ####[facility] [address] [place], [address] Basophils/100 WBC (Bld) 0.3 % Normal 0-1 [facility] Comment on above: Performed By: #### L 900.0098, L504.2610, L100.0100, L500.4050 ####[facility] [address] [place], [address] Eosinophils/100 WBC (Bld) 1.6 % Normal 0-5 [facility] Comment on above: Performed By: #### L 900.0098, L504.2610, L100.0100, L500.4050 ####[facility] [address] [place], [address] Erythrocyte distribution width (RBC) [Ratio] 12.5 % Normal 11.6-14.6 [facility] Comment on above: Performed By: #### L 900.0098, L504.2610, L100.0100, L500.4050 ####[facility] [address] [place], [address] Hematocrit (Bld) [Volume fraction] 38.0 % Low 40-54 [facility] Comment on above: Performed By: #### L 900.0098, L504.2610, L100.0100, L500.4050 ####[facility] [address] [place], [address] Hemoglobin (Bld) [Mass/Vol] 13.2 g/dL Normal 13.0-16.5 [facility] Comment on above: Performed By: #### L 900.0098, L504.2610, L100.0100, L500.4050 ####[facility] [address] [place], [address] IG% 0.200 Normal 0.0-0.9 [facility] Comment on above: Result Comment: IG% - Immature Granulocytes (promyelocytes, myelocytes andmetamyelocytes) > 1% indicates that a LEFT SHIFT is Present. Performed By: #### L 900.0098, L504.2610, L100.0100, L500.4050 ####[facility] [address] [place], [address] Lymphocytes/100 WBC (Bld) 14.4 % Low 19-41 [facility] Comment on above: Performed By: #### L 900.0098, L504.2610, L100.0100, L500.4050 ####[facility] [address] [place], [address] MCH (RBC) [Entitic mass] 30.8 pg Normal 27.0-32.0 [facility] Comment on above: Performed By: #### L 900.0098, L504.2610, L100.0100, L500.4050 ####[facility] [address] [place], [address] MCHC (RBC) [Mass/Vol] 34.7 g/dL Normal 32-36 [facility] Comment on above: Performed By: #### L 900.0098, L504.2610, L100.0100, L500.4050 ####[facility] [address] [place], [address] MCV (RBC) [Entitic vol] 88.8 fL Normal 80-94 [facility] Comment on above: Performed By: #### L 900.0098, L504.2610, L100.0100, L500.4050 ####[facility] [address] [place], [address] Monocytes/100 WBC (Bld) 9.7 % Normal 0-10 [facility] Comment on above: Performed By: #### L 900.0098, L504.2610, L100.0100, L500.4050 ####[facility] [address] [place], [address] Neutrophils/100 WBC (Bld) 73.8 % High 47-70 [facility] Comment on above: Performed By: #### L 900.0098, L504.2610, L100.0100, L500.4050 ####[facility] [address] [place], [address] Nucleated RBC (Bld) [#/Vol] 0 10*3/uL Normal 0-5 [facility] Comment on above: Performed By: #### L 900.0098, L504.2610, L100.0100, L500.4050 ####[facility] [address] [place], [address] Platelet mean volume (Bld) [Entitic vol] 8.8 fL Normal 6.2-12.0 [facility] Comment on above: Performed By: #### L 900.0098, L504.2610, L100.0100, L500.4050 ####[facility] [address] [place], [address] Platelets (Bld) [#/Vol] 299 10*3/uL Normal 150-450 [facility] Comment on above: Performed By: #### L 900.0098, L504.2610, L100.0100, L500.4050 ####[facility] [address] [place], [address] RBC (Bld) [#/Vol] 4.28 10*6/uL Low 4.6-6.2 [facility] Comment on above: Performed By: #### L 900.0098, L504.2610, L100.0100, L500.4050 ####[facility] [address] [place], [address] RDW SD 40.6 fl Normal 35.1-43.9 [facility] Comment on above: Performed By: #### L 900.0098, L504.2610, L100.0100, L500.4050 ####[facility] [address] [place], [address] WBC (Bld) [#/Vol] 8.8 10*3/uL Normal 4.4-11.0 [facility] Comment on above: Performed By: #### L 900.0098, L504.2610, L100.0100, L500.4050 ####[facility] [address] [place], [address] Carbon dioxide, total [Moles /volume] in Central venous bloodOrdered By: Jerry Hightower on 10-24-2024 CO2 [Moles/Vol] 26.7 mmol/L 21.0-32.0 [facility] Carbon dioxide, total [Moles /volume] in Central venous bloodOrdered By: Papi Hernandez on 10-24-2024 CO2 [Moles/Vol] 26.7 mmol/L 21.0-32.0 [facility] Chloride assayOrdered By: Avinash Hightower on 10-24-2024 Chloride [Moles/Vol] 92 mmol/L Low 98-108 [facility] Chloride assayOrdered By: Santa Hernandez on 10-24-2024 Chloride [Moles/Vol] 94 mmol/L Low 98-108 [facility] Comprehensive Metabolic Prof ilon 10-24-2024 Albumin [Mass/Vol] 4.3 g/dL Normal 3.4-4.8 [facility] Comment on above: Performed By: #### L 500.4050, L501.2450, L100.0100, L503.6005 ####[facility] [address] [place], [address] Albumin/Globulin [Mass ratio] 1.4 {ratio} Normal 0.9-2.4 [facility] Comment on above: Performed By: #### L 500.4050, L501.2450, L100.0100, L503.6005 ####[facility] [address] [place], [address] ALK PHOS 103 U/L Normal 40-129 [facility] Comment on above: Performed By: #### L 500.4050, L501.2450, L100.0100, L503.6005 ####[facility] [address] [place], [address] ALT [Catalytic activity/Vol] 17 U/L Normal <=46 [facility] Comment on above: Performed By: #### L 500.4050, L501.2450, L100.0100, L503.6005 ####[facility] [address] [place], [address] AST [Catalytic activity/Vol] 27 U/L Normal <=37 [facility] Comment on above: Performed By: #### L 500.4050, L501.2450, L100.0100, L503.6005 ####[facility] [address] [place], [address] Bilirubin [Mass/Vol] 0.55 mg/dL Normal 0.00-1.30 [facility] Comment on above: Performed By: #### L 500.4050, L501.2450, L100.0100, L503.6005 ####[facility] [address] [place], [address] BUN/CRE 11.6 RATIO Normal 10-20 [facility] Comment on above: Performed By: #### L 500.4050, L501.2450, L100.0100, L503.6005 ####[facility] [address] [place], [address] Calcium [Mass/Vol] 9.2 mg/dL Normal 7.6-11.0 [facility] Comment on above: Performed By: #### L 500.4050, L501.2450, L100.0100, L503.6005 ####[facility] [address] [place], [address] Chloride [Moles/Vol] 92 mmol/L Low 98-108 [facility] Comment on above: Performed By: #### L 500.4050, L501.2450, L100.0100, L503.6005 ####[facility] [address] [place], [address] CO2 [Moles/Vol] 26.7 mmol/L Normal 21.0-32.0 [facility] Comment on above: Performed By: #### L 500.4050, L501.2450, L100.0100, L503.6005 ####[facility] [address] [place], [address] Creatinine [Mass/Vol] 0.94 mg/dL Normal 0.70-1.20 [facility] Comment on above: Performed By: #### L 500.4050, L501.2450, L100.0100, L503.6005 ####[facility] [address] [place], [address] ECRCL 56.56 ml/min Normal 50-250 [facility] Comment on above: Performed By: #### L 500.4050, L501.2450, L100.0100, L503.6005 ####[facility] [address] [place], [address] GAP 11 Normal 5-15 [facility] Comment on above: Performed By: #### L 500.4050, L501.2450, L100.0100, L503.6005 ####[facility] [address] [place], [address] GFR/1.73 sq M.predicted among non-blacks MDRD (S/P/Bld) [Vol rate/Area] 82 mL/min/{1.73_m2} Normal >60 [facility] Comment on above: Result Comment: mL/m in/1.73m2 CKD-EPI Creatinine Equation (2020) Performed By: #### L 500.4050, L501.2450, L100.0100, L503.6005 ####[facility] [address] [place], [address] Globulin (S) [Mass/Vol] 3.0 g/dL Normal 2.2-4.2 [facility] Comment on above: Performed By: #### L 500.4050, L501.2450, L100.0100, L503.6005 ####[facility] [address] [place], [address] Glucose [Mass/Vol] 105 mg/dL High 70-99 [facility] Comment on above: Performed By: #### L 500.4050, L501.2450, L100.0100, L503.6005 ####[facility] [address] [place], [address] Potassium [Moles/Vol] 3.8 mmol/L Normal 3.3-5.1 [facility] Comment on above: Performed By: #### L 500.4050, L501.2450, L100.0100, L503.6005 ####[facility] [address] [place], [address] Sodium [Moles/Vol] 130 mmol/L Low 133-145 [facility] Comment on above: Performed By: #### L 500.4050, L501.2450, L100.0100, L503.6005 ####[facility] [address] [place], [address] T PROT 7.3 g/dL Normal 5.9-8.4 [facility] Comment on above: Performed By: #### L 500.4050, L501.2450, L100.0100, L503.6005 ####[facility] [address] [place], [address] Urea nitrogen [Mass/Vol] 11 mg/dL Normal 4-19 [facility] Comment on above: Performed By: #### L 500.4050, L501.2450, L100.0100, L503.6005 ####[facility] [address] [place], [address] Albumin [Mass/Vol] 4.2 g/dL Normal 3.4-4.8 [facility] Comment on above: Performed By: #### L 900.0098, L504.2610, L100.0100, L500.4050 ####[facility] [address] [place], [address] Albumin/Globulin [Mass ratio] 1.4 {ratio} Normal 0.9-2.4 [facility] Comment on above: Performed By: #### L 900.0098, L504.2610, L100.0100, L500.4050 ####[facility] [address] [place], [address] ALK PHOS 100 U/L Normal 40-129 [facility] Comment on above: Performed By: #### L 900.0098, L504.2610, L100.0100, L500.4050 ####[facility] [address] [place], [address] ALT [Catalytic activity/Vol] 16 U/L Normal <=46 [facility] Comment on above: Performed By: #### L 900.0098, L504.2610, L100.0100, L500.4050 ####[facility] [address] [place], [address] AST [Catalytic activity/Vol] 27 U/L Normal <=37 [facility] Comment on above: Performed By: #### L 900.0098, L504.2610, L100.0100, L500.4050 ####[facility] [address] [place], [address] Bilirubin [Mass/Vol] 0.50 mg/dL Normal 0.00-1.30 [facility] Comment on above: Performed By: #### L 900.0098, L504.2610, L100.0100, L500.4050 ####[facility] [address] [place], [address] BUN/CRE 12.0 RATIO Normal 10-20 [facility] Comment on above: Performed By: #### L 900.0098, L504.2610, L100.0100, L500.4050 ####[facility] [address] [place], [address] Calcium [Mass/Vol] 9.2 mg/dL Normal 7.6-11.0 [facility] Comment on above: Performed By: #### L 900.0098, L504.2610, L100.0100, L500.4050 ####[facility] [address] [place], [address] Chloride [Moles/Vol] 94 mmol/L Low 98-108 [facility] Comment on above: Performed By: #### L 900.0098, L504.2610, L100.0100, L500.4050 ####[facility] [address] [place], [address] CO2 [Moles/Vol] 26.7 mmol/L Normal 21.0-32.0 [facility] Comment on above: Performed By: #### L 900.0098, L504.2610, L100.0100, L500.4050 ####[facility] [address] [place], [address] Creatinine [Mass/Vol] 0.90 mg/dL Normal 0.70-1.20 [facility] Comment on above: Performed By: #### L 900.0098, L504.2610, L100.0100, L500.4050 ####[facility] [address] [place], [address] ECRCL 61.20 ml/min Normal 50-250 [facility] Comment on above: Performed By: #### L 900.0098, L504.2610, L100.0100, L500.4050 ####[facility] [address] [place], [address] GAP 9 Normal 5-15 [facility] Comment on above: Performed By: #### L 900.0098, L504.2610, L100.0100, L500.4050 ####[facility] [facility] [address] [place], [address] GFR/1.73 sq M.predicted among non-blacks MDRD (S/P/Bld) [Vol rate/Area] 86 mL/min/{1.73_m2} Normal >60 [facility] Comment on above: Result Comment: mL/m in/1.73m2 CKD-EPI Creatinine Equation (2020) Performed By: #### L 900.0098, L504.2610, L100.0100, L500.4050 ####[facility] [address] [place], [address] Globulin (S) [Mass/Vol] 2.9 g/dL Normal 2.2-4.2 [facility] Comment on above: Performed By: #### L 900.0098, L504.2610, L100.0100, L500.4050 ####[facility] [address] [place], [address] Glucose [Mass/Vol] 107 mg/dL High 70-99 [facility] Comment on above: Performed By: #### L 900.0098, L504.2610, L100.0100, L500.4050 ####[facility] [address] [place], [address] Potassium [Moles/Vol] 4.2 mmol/L Normal 3.3-5.1 [facility] Comment on above: Performed By: #### L 900.0098, L504.2610, L100.0100, L500.4050 ####[facility] [address] [place], [address] Sodium [Moles/Vol] 131 mmol/L Low 133-145 [facility] Comment on above: Performed By: #### L 900.0098, L504.2610, L100.0100, L500.4050 ####[facility] [address] [place], [address] T PROT 7.0 g/dL Normal 5.9-8.4 [facility] Comment on above: Performed By: #### L 900.0098, L504.2610, L100.0100, L500.4050 ####[facility] [address] [place], [address] Urea nitrogen [Mass/Vol] 11 mg/dL Normal 4-19 [facility] Comment on above: Performed By: #### L 900.0098, L504.2610, L100.0100, L500.4050 ####[facility] [address] [place], [address] Emergency Department Summary on 10-24-2024 Emergency Department Summary Normal [facility] Eosinophil percentageOrdered By: Jerry Hightower on 10-24-2024 Eosinophils/100 WBC (Bld) 1.0 % 0-5 [facility] Eosinophil percentageOrdered By: Papi Hernandez on 10-24-2024 Eosinophils/100 WBC (Bld) 1.6 % 0-5 [facility] Epithelial cells.squamous LM Ql (Urine sed)Ordered By: Jerry Hightower on 10-24-2024 Epithelial cells.squamous LM.HPF (Urine sed) [#/Area] 0 /[HPF] 0-5 [facility] Erythrocyte distribution wid th ratioOrdered By: Jerry Hightower on 10-24-2024 Erythrocyte distribution width (RBC) [Ratio] 12.4 % 11.6-14.6 [facility] Erythrocyte distribution wid th ratioOrdered By: Papi Hernandez on 10-24-2024 Erythrocyte distribution width (RBC) [Ratio] 12.5 % 11.6-14.6 [facility] Erythrocyte distribution wid th standard deviationOrdered By: Jerry Hightower on 10-24-2024 Erythrocyte distribution width (RBC) [Entitic vol] 39.6 fL 35.1-43.9 [facility] Erythrocyte distribution width (RBC) [Ratio] 39.6 fl 35.1-43.9 [facility] Erythrocyte distribution wid th standard deviationOrdered By: Papi Hernandez on 10-24-2024 Erythrocyte distribution width (RBC) [Entitic vol] 40.6 fL 35.1-43.9 [facility] Erythrocyte distribution width (RBC) [Ratio] 40.6 fl 35.1-43.9 [facility] Estimation of creatinine dunia aranceOrdered By: Jerry Hightower on 10-24-2024 Estimated Creatinine Clearance Calc 56.56 ml/min 50-250 [facility] Estimation of creatinine dunia aranceOrdered By: Papi Hernandez on 10-24-2024 Estimated Creatinine Clearance Calc 61.20 ml/min 50-250 [facility] GFR/1.73 sq M.predicted gregg g non-blacks MDRD (S/P/Bld) [Vol rate/Area]Ordered By: Jerry Hightower on 10-24-2024 Estimated GFR (MDRD) Non-Af Amer 82 >60 [facility] Comment on above: mL/min/1.73m2 CKD-EP I Creatinine Equation (2020) GFR/1.73 sq M.predicted gregg g non-blacks MDRD (S/P/Bld) [Vol rate/Area]Ordered By: Papi Hernandez on 10-24-2024 Estimated GFR (MDRD) Non-Af Amer 86 >60 [facility] Comment on above: mL/min/1.73m2 CKD-EP I Creatinine Equation (2020) Glomerular filtration rate ( GFR) estimation/1.73 sq m using serum, plasma, or whole bOrdered By: Jerry Hightower on 10-24-2024 GFR/1.73 sq M.predicted among non-blacks MDRD (S/P/Bld) [Vol rate/Area] 82 mL/min/{1.73_m2} >60 [facility] Comment on above: mL/min/1.73m2 CKD-EP I Creatinine Equation (2020) Glomerular filtration rate ( GFR) estimation/1.73 sq m using serum, plasma, or whole bOrdered By: Papi Hernandez on 10-24-2024 GFR/1.73 sq M.predicted among non-blacks MDRD (S/P/Bld) [Vol rate/Area] 86 mL/min/{1.73_m2} >60 [facility] Comment on above: mL/min/1.73m2 CKD-EP I Creatinine Equation (2020) Glucose Ql (U)Ordered By: Avinash Hightower on 10-24-2024 Urine Glucose (UA) Normal mg/dl Normal [facility] Hematocrit Auto (Bld) [Volum e fraction]Ordered By: Jerry Hightower on 10-24-2024 Hematocrit (Bld) [Volume fraction] 37.0 % Low 40-54 [facility] Hematocrit Auto (Bld) [Volum e fraction]Ordered By: Papi Hernandez on 10-24-2024 Hematocrit (Bld) [Volume fraction] 38.0 % Low 40-54 [facility] Hemoglobin measurementOrdere d By: Jerry Hightower on 10-24-2024 Hemoglobin (Bld) [Mass/Vol] 13.1 g/dL 13.0-16.5 [facility] Hemoglobin measurementOrdere d By: Papi Hernandez on 10-24-2024 Hemoglobin (Bld) [Mass/Vol] 13.2 g/dL 13.0-16.5 [facility] Immature granulocytes/100 WB C Auto (Bld)Ordered By: Jerry Hightower on 10-24-2024 Immature granulocytes/100 WBC (Bld) 0.500 % 0.0-0.9 [facility] Comment on above: IG% - Immature Granu locytes (promyelocytes, myelocytes and metamyelocytes) > 1% indicates that a LEFT SHIFT is Present. Immature granulocytes/100 WB C Auto (Bld)Ordered By: Papi Hernandez on 10-24-2024 Immature granulocytes/100 WBC (Bld) 0.200 % 0.0-0.9 [facility] Comment on above: IG% - Immature Granu locytes (promyelocytes, myelocytes and metamyelocytes) > 1% indicates that a LEFT SHIFT is Present. Ketones Test strip Ql (U)Ord ered By: Jerry Hightower on 10-24-2024 Ketones Ql (U) Negative Negative [facility] LDHon 10-24-2024 LDH 105 U/L Normal 87-241 [facility] Comment on above: Order Comment: 1 Performed By: #### L 900.0098, L504.2610, L100.0100, L500.4050 ####[facility] [address] [place], [place], [id number] Laboratory - Chemistry and C hemistry - challengeOrdered By: Jerry Hightower on 10-24-2024 AST [Catalytic activity/Vol] 27 U/L <38 [facility] Laboratory - Chemistry and C hemistry - challengeOrdered By: Papi Hernandez on 10-24-2024 AST [Catalytic activity/Vol] 27 U/L <38 [facility] Lactate dehydrogenase (LDH) measurementOrdered By: Papi Hernandez on 10-24-2024 LDH [Catalytic activity/Vol] 105 U/L 87-241 [facility] Lactic Acidon 10-24-2024 Lactate [Moles/Vol] 1.1 mmol/L Normal 0.0-2.0 [facility] Comment on above: Order Comment: Y Performed By: #### L 500.4050, L501.2450, L100.0100, L503.6005 ####[facility] [address] [place], [address] Lactic acid measurementOrder ed By: Jerry Hightower on 10-24-2024 Lactate [Moles/Vol] 1.1 mmol/L 0.0-2.0 [facility] Lipaseon 10-24-2024 Lipase [Catalytic activity/Vol] 28 U/L Normal 13-75 [facility] Comment on above: Result Comment: Debi vieyra note:LIPASE revised reference range effective 22.New Lipase methodology. Expected to produce lower valuesthan the previous assay method.NEW Reference Range: 13 - 75 U/L Performed By: #### L 500.4050, L501.2450, L100.0100, L503.6005 ####[facility] [address] [place], [place], [id number] Lipase measurementOrdered By : Jerry Hightower on 10-24-2024 Lipase [Catalytic activity/Vol] 28 U/L 13-75 [facility] Comment on above: Please note:LIPASE r evised reference range effective 22. New Lipase methodology. Expected to produce lower values than the previous assay method. NEW Reference Range: 13 - 75 U/L Lymphocytes Auto (Unsp spec) [#/Vol]Ordered By: Jerry Hightower on 10-24-2024 Lymphocytes (Bld) [#/Vol] 1.10 10*3/uL 0.83-4.51 [facility] Lymphocytes Auto (Unsp spec) [#/Vol]Ordered By: Papi Hernandez on 10-24-2024 Lymphocytes (Bld) [#/Vol] 1.26 10*3/uL 0.83-4.51 [facility] Lymphocytes/100 WBC Auto (Un sp spec)Ordered By: Jerry Hightower on 10-24-2024 Lymphocytes/100 WBC (Bld) 12.7 % Low 19-41 [facility] Lymphocytes/100 WBC Auto (Un sp spec)Ordered By: Papi Hernandez on 10-24-2024 Lymphocytes/100 WBC (Bld) 14.4 % Low 19-41 [facility] MCV (mean corpuscular volume ) determinationOrdered By: Jerry Hightower on 10-24-2024 MCV (RBC) [Entitic vol] 87.1 fL 80-94 [facility] MCV (mean corpuscular volume ) determinationOrdered By: Papi Hernandez on 10-24-2024 MCV (RBC) [Entitic vol] 88.8 fL 80-94 [facility] Mean corpuscular hemoglobin (MCH) determinationOrdered By: Jerry Hightower on 10-24-2024 MCH (RBC) [Entitic mass] 30.8 pg 27.0-32.0 [facility] Mean corpuscular hemoglobin (MCH) determinationOrdered By: Papi Hernandez on 10-24-2024 MCH (RBC) [Entitic mass] 30.8 pg 27.0-32.0 [facility] Mean corpuscular hemoglobin concentration (MCHC) determinationOrdered By: Jerry Hightower on 10-24-2024 MCHC (RBC) [Mass/Vol] 35.4 g/dL 32-36 [facility] Mean corpuscular hemoglobin concentration (MCHC) determinationOrdered By: Papi Hernandez on 10-24-2024 MCHC (RBC) [Mass/Vol] 34.7 g/dL 32-36 [facility] Mean platelet volume determi nationOrdered By: Jerry Hightower on 10-24-2024 Platelet mean volume (Bld) [Entitic vol] 9.0 fL 6.2-12.0 [facility] Mean platelet volume determi nationOrdered By: Papi Hernandez on 10-24-2024 Platelet mean volume (Bld) [Entitic vol] 8.8 fL 6.2-12.0 [facility] Microscopic analysis of urin e for red blood cells (RBC)Ordered By: Jerry Hightower on 10-24-2024 Microscopic analysis of urine for red blood cells (RBC) 0-5 SEEN /hpf 0-5 [facility] Urine RBC 0-5 SEEN /hpf 0-5 [facility] Miscellaneous procedureOrder ed By: Papi Hernandez on 10-24-2024 Miscellaneous Test Comment SEE SCANNED REPORT [facility] Monocyte percentageOrdered B y: Jerry Hightower on 10-24-2024 Monocytes/100 WBC (Bld) 8.4 % 0-10 [facility] Monocyte percentageOrdered B y: Papi Hernandez on 10-24-2024 Monocytes/100 WBC (Bld) 9.7 % 0-10 [facility] Mucus LM Ql (Urine sed)Order ed By: Jerry Hightower on 10-24-2024 Mucus Ql (Urine sed) 0 SEEN /hpf [facility] NATERAon 10-24-2024 NATURA SEE SCANNED REPORT Normal [facility] Comment on above: Performed By: #### L 900.0098, L504.2610, L100.0100, L500.4050 ####[facility] [address] [place], [place], [id number] Neutrophil percentageOrdered By: Jerry Hightower on 10-24-2024 Neutrophils/100 WBC (Bld) 77.1 % High 47-70 [facility] Neutrophil percentageOrdered By: Papi Hernandez on 10-24-2024 Neutrophils/100 WBC (Bld) 73.8 % High 47-70 [facility] Nitrite Test strip Ql (U)Ord ered By: Jerry Hightower on 10-24-2024 Nitrite Ql (U) Negative Negative [facility] No Panel InformationOrdered By: Jerry Hightower on 10-24-2024 27 U/L <38 [facility] No Panel InformationOrdered By: Papi Hernandez on 10-24-2024 27 U/L <38 [facility] Nucleated red blood cell per centageOrdered By: Jerry Hightower on 10-24-2024 Nucleated RBC/100 WBC (Bld) [Ratio] 0 % 0-5 [facility] Nucleated red blood cell per centageOrdered By: Papi Hernandez on 10-24-2024 Nucleated RBC/100 WBC (Bld) [Ratio] 0 % 0-5 [facility] Platelet countOrdered By: Avinash Hightower on 10-24-2024 Platelets (Bld) [#/Vol] 307 10*3/uL 150-450 [facility] Platelet countOrdered By: Santa Hernandez on 10-24-2024 Platelets (Bld) [#/Vol] 299 10*3/uL 150-450 [facility] Potassium (Unsp spec) [Mass/ Vol]Ordered By: Jerry Hightower on 10-24-2024 Potassium [Moles/Vol] 3.8 mmol/L 3.3-5.1 [facility] Potassium (Unsp spec) [Mass/ Vol]Ordered By: Papi Hernandez on 10-24-2024 Potassium [Moles/Vol] 4.2 mmol/L 3.3-5.1 [facility] Potassium measurement (mass/ volume)Ordered By: Jerry Hightower on 10-24-2024 Potassium (Unsp spec) [Mass/Vol] 3.8 mmol/L 3.3-5.1 [facility] Potassium measurement (mass/ volume)Ordered By: Papi Hernandez on 10-24-2024 Potassium (Unsp spec) [Mass/Vol] 4.2 mmol/L 3.3-5.1 [facility] Protein Test strip Ql (U)Ord ered By: Jerry Hightower on 10-24-2024 Protein Ql (U) 15 mg/dl High Negative [facility] RBC Auto (Bld) [#/Vol]Ordere d By: Jerry Hightower on 10-24-2024 RBC (Bld) [#/Vol] 4.25 10*6/uL Low 4.6-6.2 [facility] RBC Auto (Bld) [#/Vol]Ordere d By: Papi Hernandez on 10-24-2024 RBC (Bld) [#/Vol] 4.28 10*6/uL Low 4.6-6.2 [facility] Serum creatinine measurement (mass/volume)Ordered By: Jerry Hightower on 10-24-2024 Creatinine [Mass/Vol] 0.94 mg/dL 0.70-1.20 [facility] Serum creatinine measurement (mass/volume)Ordered By: Papi Hernandez on 10-24-2024 Creatinine [Mass/Vol] 0.90 mg/dL 0.70-1.20 [facility] Serum globulin measurementOr dered By: Jerry Hightower on 10-24-2024 Globulin (S) [Mass/Vol] 3.0 g/dL 2.2-4.2 [facility] Serum globulin measurementOr dered By: Papi Hernandez on 10-24-2024 Globulin (S) [Mass/Vol] 2.9 g/dL 2.2-4.2 [facility] Serum glucose measurement (m ass/volume)Ordered By: Jerry Hightower on 10-24-2024 Glucose [Mass/Vol] 105 mg/dL High 70-99 [facility] Serum glucose measurement (m ass/volume)Ordered By: Papi Hernandez on 10-24-2024 Glucose [Mass/Vol] 107 mg/dL High 70-99 [facility] Serum or plasma alanine carrion otransferase (ALT) measurementOrdered By: Jerry Hightower on 10-24-2024 ALT [Catalytic activity/Vol] 17 U/L <47 [facility] Serum or plasma alanine carrion otransferase (ALT) measurementOrdered By: Papi Hernandez on 10-24-2024 ALT [Catalytic activity/Vol] 16 U/L <47 [facility] Serum or plasma albumin shagufta urement (mass/volume)Ordered By: Jerry Hightower on 10-24-2024 Albumin [Mass/Vol] 4.3 g/dL 3.4-4.8 [facility] Serum or plasma albumin shagufta urement (mass/volume)Ordered By: Papi Hernandez on 10-24-2024 Albumin [Mass/Vol] 4.2 g/dL 3.4-4.8 [facility] Serum or plasma albumin/glob ulin mass ratioOrdered By: Jerry Hightower on 10-24-2024 Albumin/Globulin [Mass ratio] 1.4 {ratio} 0.9-2.4 [facility] Serum or plasma albumin/glob ulin mass ratioOrdered By: Papi Hernandez on 10-24-2024 Albumin/Globulin [Mass ratio] 1.4 {ratio} 0.9-2.4 [facility] Serum or plasma alkaline airam sphatase measurementOrdered By: Jerry Hightower on 10-24-2024 ALP [Catalytic activity/Vol] 103 U/L 40-129 [facility] Serum or plasma alkaline airam sphatase measurementOrdered By: Papi Hernandez on 10-24-2024 ALP [Catalytic activity/Vol] 100 U/L 40-129 [facility] Serum or plasma calcium shagufta urement (mass/volume)Ordered By: Jerry Hightower on 10-24-2024 Calcium [Mass/Vol] 9.2 mg/dL 7.6-11.0 [facility] Serum or plasma calcium shagufta urement (mass/volume)Ordered By: Papi Hernandez on 10-24-2024 Calcium [Mass/Vol] 9.2 mg/dL 7.6-11.0 [facility] Serum or plasma carcinoembry onic antigen measurement (mass/volume)Ordered By: Papi Hernandez on 10-24-2024 Carcinoembryonic Ag [Mass/Vol] 25.2 ng/mL High 0.0-4.7 [facility] Comment on above: Nonsmokers <3.9 Smok ers <5.6[employer] Electrochemiluminescence Immunoassay(ECLIA)Values obtained with different assay methods or kitscannot be used interchangeably. Results cannot beinterpreted as absolute evidence of the presence orabsence of malignant disease.Performed at: [address] [id number] Director: Jian Paredes PhD, Phone: [phone] Serum or plasma urea nitroge n measurement (mass/volume)Ordered By: Jerry Hightower on 10-24-2024 Urea nitrogen [Mass/Vol] 11 mg/dL 11-17 [facility] Serum or plasma urea nitroge n measurement (mass/volume)Ordered By: Papi Hernandez on 10-24-2024 Urea nitrogen [Mass/Vol] 11 mg/dL 11-17 [facility] Sodium levelOrdered By: Natalie Hightower on 10-24-2024 Sodium [Moles/Vol] 130 mmol/L Low 133-145 [facility] Sodium levelOrdered By: Stephan Hernandez on 10-24-2024 Sodium [Moles/Vol] 131 mmol/L Low 133-145 [facility] Squamous epithelial cells de tection in urine sediment by light microscopyOrdered By: Jerry Hightower on 10-24-2024 Epithelial cells.squamous LM Ql (Urine sed) 0-5 SEEN /hpf 0-5 [facility] Testicular with Arterial Tommy won 10-24-2024 Testicular with Arterial Flow Normal [facility] Total proteinOrdered By: Renay Hightower on 10-24-2024 Protein [Mass/Vol] 7.3 g/dL 5.9-8.4 [facility] Total proteinOrdered By: Thang Hernandez on 10-24-2024 Protein [Mass/Vol] 7.0 g/dL 5.9-8.4 [facility] Urinalysis, Completeon 10-24 EPI,SQUAMOUS 0-5 SEEN Normal 0-5 [facility] Comment on above: Order Comment: CLEAN CATCH Performed By: #### L 400.0001 ####[facility] [address] [place], [place], [id number] RBC 0-5 SEEN Normal 0-5 [facility] Comment on above: Order Comment: CLEAN CATCH Performed By: #### L 400.0001 ####[facility] [address] [place], [address] BACTERIA 0 SEEN Normal None Seen [facility] Comment on above: Order Comment: CLEAN CATCH Performed By: #### L 400.0001 ####[facility] [address] [place], [address] Mucus Ql (Urine sed) 0 SEEN Normal [facility] Comment on above: Order Comment: CLEAN CATCH Performed By: #### L 400.0001 ####[facility] [address] [place], [address] WBC 0 SEEN Normal 0-5 [facility] Comment on above: Order Comment: CLEAN CATCH Performed By: #### L 400.0001 ####[facility] [address] [place], [place], [id number] Urine blood detectionOrdered By: Jerry Hightower on 10-24-2024 Urine Occult Blood Negative Negative [facility] Urine clarityOrdered By: Renay Hightower on 10-24-2024 Clarity (U) Clear Clear [facility] Urine color determinationOrd ered By: Jerry Hightower on 10-24-2024 Color (U) Straw Yellow [facility] Urine glucose detectionOrder ed By: Jerry Hightower on 10-24-2024 Glucose Ql (U) Normal mg/dl Normal [facility] Urine leukocyte esterase det ection by dipstickOrdered By: Jerry Hightower on 10-24-2024 Leukocyte esterase Test strip Ql (U) Negative Negative [facility] Urine pHOrdered By: Jerry garza on 10-24-2024 pH (U) 8.0 [pH] 5.0 - 8.0 [facility] Urine sediment bacteria coun t by microscopy (number/high power field)Ordered By: Jerry Hightower on 10-24-2024 Bacteria LM.HPF (Urine sed) [#/Area] 0 /[HPF] None Seen [facility] Urine specific gravity measu rementOrdered By: Jerry Hightower on 10-24-2024 Specific gravity (U) [Rel density] 1.010 1.002-1.030 [facility] Urine urobilinogen measureme ntOrdered By: Jerry Hightower on 10-24-2024 Urobilinogen Ql (U) Normal mg/dl Normal [facility] Urobilinogen Ql (U)Ordered B y: Jerry Hightower on 10-24-2024 Urine Urobilinogen Normal mg/dl Normal [facility] White blood cell (WBC) count Ordered By: Jerry Hightower on 10-24-2024 WBC (Bld) [#/Vol] 8.7 10*3/uL 4.4-11.0 [facility] White blood cell (WBC) count Ordered By: Papi Hernandez on 10-24-2024 WBC (Bld) [#/Vol] 8.8 10*3/uL 4.4-11.0 [facility] White blood cell countOrdere d By: Jerry Hightower on 10-24-2024 Urine WBC 0 SEEN /hpf 0-5 [facility] White blood cell count 0 SEEN /hpf 0-5 [facility] Amorphous sediment detection in urine sediment by light microscopyOrdered By: Malinda Webster on 10-17-2024 Amorphous sediment LM Ql (Urine sed) 3+ [facility] Anion gap in Serum or Plasma Ordered By: Malinda Webster on 10-17-2024 Anion gap [Moles/Vol] 9 mmol/L 5-15 [facility] BUN/creatinine ratioOrdered By: Malinda Webster on 10-17-2024 Urea nitrogen/Creatinine [Mass ratio] 15.2 mg/mg 10- [facility] Basic Metabolic Profile (BMP )on 10-17-2024 BUN/CRE 15.2 RATIO Normal - [facility] Comment on above: Performed By: #### L 500.2500, L400.0001 ####[facility] [address] [place], [address] Calcium [Mass/Vol] 9.7 mg/dL Normal 7.6-11.0 [facility] Comment on above: Performed By: #### L 500.2500, L400.0001 ####[facility] [facility] [address] [place], [address] Chloride [Moles/Vol] 93 mmol/L Low 98-108 [facility] Comment on above: Performed By: #### L 500.2500, L400.0001 ####[facility] [address] [place], [address] CO2 [Moles/Vol] 27.4 mmol/L Normal 21.0-32.0 [facility] Comment on above: Performed By: #### L 500.2500, L400.0001 ####[facility] [address] [place], [address] Creatinine [Mass/Vol] 1.06 mg/dL Normal 0.70-1.20 [facility] Comment on above: Performed By: #### L 500.2500, L400.0001 ####[facility] [address] [place], [address] GAP 9 Normal 5-15 [facility] Comment on above: Performed By: #### L 500.2500, L400.0001 ####[facility] [address] [place], [address] GFR/1.73 sq M.predicted among non-blacks MDRD (S/P/Bld) [Vol rate/Area] 71 mL/min/{1.73_m2} Normal >60 [facility] Comment on above: Result Comment: mL/m in/1.73m2 CKD-EPI Creatinine Equation (2020) Performed By: #### L 500.2500, L400.0001 ####[facility] [address] [place], [address] Glucose [Mass/Vol] 100 mg/dL High 70-99 [facility] Comment on above: Performed By: #### L 500.2500, L400.0001 ####[facility] [address] [place], [address] Potassium [Moles/Vol] 4.5 mmol/L Normal 3.3-5.1 [facility] Comment on above: Performed By: #### L 500.2500, L400.0001 ####[facility] [address] [place], [address] Sodium [Moles/Vol] 130 mmol/L Low 133-145 [facility] Comment on above: Performed By: #### L 500.2500, L400.0001 ####[facility] [address] [place], [address] Urea nitrogen [Mass/Vol] 16 mg/dL Normal - [facility] Comment on above: Performed By: #### L 500.2500, L400.0001 ####[facility] [address] [place], [address] Bilirubin Test strip Ql (U)O rdered By: Malinda Webster on 10-17-2024 Bilirubin Ql (U) Negative Negative [facility] Carbon dioxide, total [Moles /volume] in Central venous bloodOrdered By: Malinda Webster on 10-17-2024 CO2 [Moles/Vol] 27.4 mmol/L 21.0-32.0 [facility] Cardiology Visit Reporton Cardiology Visit Report Normal [facility] Chloride assayOrdered By: Santa Webster on 10-17-2024 Chloride [Moles/Vol] 93 mmol/L Low 98-108 [facility] Epithelial cells.squamous LM Ql (Urine sed)Ordered By: Malinda Webster on 10-17-2024 Epithelial cells.squamous LM.HPF (Urine sed) [#/Area] 0 /[HPF] 0-5 [facility] GFR/1.73 sq M.predicted gregg g non-blacks MDRD (S/P/Bld) [Vol rate/Area]Ordered By: Malinda Webster on 10-17-2024 Estimated GFR (MDRD) Non-Af Amer 71 >60 [facility] Comment on above: mL/min/1.73m2 CKD-EP I Creatinine Equation (2020) Glomerular filtration rate ( GFR) estimation/1.73 sq m using serum, plasma, or whole bOrdered By: Malinda Webster on 10-17-2024 GFR/1.73 sq M.predicted among non-blacks MDRD (S/P/Bld) [Vol rate/Area] 71 mL/min/{1.73_m2} >60 [facility] Comment on above: mL/min/1.73m2 CKD-EP I Creatinine Equation (2020) Glucose Ql (U)Ordered By: Santa Webster on 10-17-2024 Urine Glucose (UA) Normal mg/dl Normal [facility] Ketones Test strip Ql (U)Ord ered By: Malinda Webster on 10-17-2024 Ketones Ql (U) Negative Negative [facility] Microscopic analysis of urin e for red blood cells (RBC)Ordered By: Malinda Webster on 10-17-2024 Microscopic analysis of urine for red blood cells (RBC) 0 SEEN /hpf 0-5 [facility] Urine RBC 0 SEEN /hpf 0-5 [facility] Mucus LM Ql (Urine sed)Order ed By: Malinda Webster on 10-17-2024 Mucus Ql (Urine sed) 0 SEEN /hpf [facility] Nitrite Test strip Ql (U)Ord ered By: Malinda Webster on 10-17-2024 Nitrite Ql (U) Negative Negative [facility] Potassium (Unsp spec) [Mass/ Vol]Ordered By: Malinda Webster on 10-17-2024 Potassium [Moles/Vol] 4.5 mmol/L 3.3-5.1 [facility] Potassium measurement (mass/ volume)Ordered By: Malinda Webster on 10-17-2024 Potassium (Unsp spec) [Mass/Vol] 4.5 mmol/L 3.3-5.1 [facility] Protein Test strip Ql (U)Ord ered By: Malinda Webster on 10-17-2024 Protein Ql (U) 30 mg/dl High Negative [facility] Serum creatinine measurement (mass/volume)Ordered By: Malinda Webster on 10-17-2024 Creatinine [Mass/Vol] 1.06 mg/dL 0.70-1.20 [facility] Serum glucose measurement (m ass/volume)Ordered By: Malinda Webster on 10-17-2024 Glucose [Mass/Vol] 100 mg/dL High 70-99 [facility] Serum or plasma calcium shagufta urement (mass/volume)Ordered By: Malinda Webster on 10-17-2024 Calcium [Mass/Vol] 9.7 mg/dL 7.6-11.0 [facility] Serum or plasma urea nitroge n measurement (mass/volume)Ordered By: Malinda Webster on 10-17-2024 Urea nitrogen [Mass/Vol] 16 mg/dL 4-19 [facility] Sodium levelOrdered By: Malinda Webster on 10-17-2024 Sodium [Moles/Vol] 130 mmol/L Low 133-145 [facility] Squamous epithelial cells de tection in urine sediment by light microscopyOrdered By: Malinda Webster on 10-17-2024 Epithelial cells.squamous LM Ql (Urine sed) 0 SEEN /hpf 0-5 [facility] Urinalysis, Completeon 10-17 AMORPHOUS 3+ Normal [facility] Comment on above: Order Comment: BOB CTOR TO SPECIFY Performed By: #### L 500.2500, L400.0001 ####[facility] [address] [place] [address] BACTERIA 2+ /hpf Normal None Seen [facility] Comment on above: Order Comment: BOB CTOR TO SPECIFY Performed By: #### L 500.2500, L400.0001 ####[facility] [address] [place], [address] RBC 0 SEEN Normal 0-[address] [place] [address] Comment on above: Order Comment: BOB CTOR TO SPECIFY Performed By: #### L 500.2500, L400.0001 ####[facility] [address] [place], [address] EPI,SQUAMOUS 0 SEEN Normal 0-5 [facility] Comment on above: Order Comment: BOB CTOR TO SPECIFY Performed By: #### L 500.2500, L400.0001 ####[facility] [address] [place], [address] Mucus Ql (Urine sed) 0 SEEN Normal [facility] Comment on above: Order Comment: BOB CTOR TO SPECIFY Performed By: #### L 500.2500, L400.0001 ####[facility] [address] [place], [address] WBC 0 SEEN Normal 0-5 [facility] Comment on above: Order Comment: BOB CTOR TO SPECIFY Performed By: #### L 500.2500, L400.0001 ####[facility] [address] [place], [address] Urine blood detectionOrdered By: Malinda Webster on 10-17-2024 Urine Occult Blood Negative Negative [facility] Urine clarityOrdered By: Marcelo Webster on 10-17-2024 Clarity (U) Sl. Cloudy Clear [facility] Urine color determinationOrd ered By: Malinda Webster on 10-17-2024 Color (U) Yellow Yellow [facility] Urine glucose detectionOrder ed By: Malinda Webster on 10-17-2024 Glucose Ql (U) Normal mg/dl Normal [facility] Urine leukocyte esterase det ection by dipstickOrdered By: Malinda Webster on 10-17-2024 Leukocyte esterase Test strip Ql (U) Negative Negative [facility] Urine pHOrdered By: Malinda vallejo on 10-17-2024 pH (U) 8.0 [pH] 5.0 - 8.0 [facility] Urine sediment bacteria coun t by microscopy (number/high power field)Ordered By: Malinda Webster on 10-17-2024 Bacteria LM.HPF (Urine sed) [#/Area] 2 /[HPF] None Seen [facility] Urine specific gravity measu rementOrdered By: Malinda Webster on 10-17-2024 Specific gravity (U) [Rel density] 1.015 1.002-1.030 [facility] Urine urobilinogen measureme ntOrdered By: Malinda Webster on 10-17-2024 Urobilinogen Ql (U) Normal mg/dl Normal [facility] Urobilinogen Ql (U)Ordered B y: Malinda Webster on 10-17-2024 Urine Urobilinogen Normal mg/dl Normal [facility] White blood cell countOrdere d By: Malinda Webster on 10-17-2024 Urine WBC 0 SEEN /hpf 0-5 [facility] White blood cell count 0 SEEN /hpf 0-5 [facility] Absolute lymphocyte countOrd ered By: Mariela Olson on 09-05-2024 Lymphocytes Auto (Unsp spec) [#/Vol] 1.41 10*3/uL 0.83-4.51 [facility] Absolute neutrophil countOrd ered By: Mariela Olson on 09-05-2024 Neutrophils (Bld) [#/Vol] 4.1 10*3/uL 2.0-7.7 [facility] Albumin to globulin ratioOrd ered By: [facility] Albumin/Globulin [Mass ratio] 1.0 {ratio} 0.9-2.4 [facility] Automated lymphocyte count a s percentage of total leukocytesOrdered By: [facility] on 09-05-2024 Lymphocytes/100 WBC Auto (Unsp spec) 22.2 % 19-41 [facility] Basophil percentageOrdered B y: [facility] on 09-05-2024 Basophils/100 WBC (Bld) 0.3 % 0-1 [facility] Bilirubin, totalOrdered By: [facility] on 09-05-2024 Bilirubin [Mass/Vol] 0.80 mg/dL 0.20-1.00 [facility] Comment on above: For patients on eltr ombopag therapy, use of Dimension Kamas TBIL is not recommended. Blood urea nitrogen (BUN)/cr eatinine ratioOrdered By: [facility] on 09-05-2024 Urea nitrogen/Creatinine [Mass ratio] 13.0 mg/mg 10-20 [facility] CBC W/Diff, Automatedon Absolute Lymph 1.41 X10 3/uL Normal 0.83-4.51 [facility] Comment on above: Performed By: #### L 500.4050, L100.0100 ####[facility] [address] [place], [address] Absolute Neut 4.1 X10 3/uL Normal 2.0-7.7 [facility] Comment on above: Performed By: #### L 500.4050, L100.0100 ####[facility] [address] [place], [address] Basophils/100 WBC (Bld) 0.3 % Normal 0-1 [facility] Comment on above: Performed By: #### L 500.4050, L100.0100 ####[facility] [address] [place], [address] Eosinophils/100 WBC (Bld) 3.1 % Normal 0-5 [facility] Comment on above: Performed By: #### L 500.4050, L100.0100 ####[facility] [address] [place], [address] Erythrocyte distribution width (RBC) [Ratio] 13.3 % Normal 11.6-14.6 [facility] Comment on above: Performed By: #### L 500.4050, L100.0100 ####[facility] [address] [place], [address] Hematocrit (Bld) [Volume fraction] 39.9 % Low 40-54 [facility] Comment on above: Performed By: #### L 500.4050, L100.0100 ####[facility] [address] [place], [address] Hemoglobin (Bld) [Mass/Vol] 13.3 g/dL Normal 13.0-16.5 [facility] Comment on above: Performed By: #### L 500.4050, L100.0100 ####[facility] [address] [place], [address] IG% 0.200 Normal 0.0-0.9 [facility] Comment on above: Result Comment: IG% - Immature Granulocytes (promyelocytes, myelocytes andmetamyelocytes) > 1% indicates that a LEFT SHIFT is Present. Performed By: #### L 500.4050, L100.0100 ####[facility] [address] [place], [address] Lymphocytes/100 WBC (Bld) 22.2 % Normal 19-41 [facility] Comment on above: Performed By: #### L 500.4050, L100.0100 ####[facility] [address] [place], [address] MCH (RBC) [Entitic mass] 29.6 pg Normal 27.0-32.0 [facility] Comment on above: Performed By: #### L 500.4050, L100.0100 ####[facility] [address] [place], [address] MCHC (RBC) [Mass/Vol] 33.3 g/dL Normal 32-36 [facility] Comment on above: Performed By: #### L 500.4050, L100.0100 ####[facility] [address] [place], [address] MCV (RBC) [Entitic vol] 88.7 fL Normal 80-94 [facility] Comment on above: Performed By: #### L 500.4050, L100.0100 ####[facility] [address] [place], [address] Monocytes/100 WBC (Bld) 10.2 % High 0-10 [facility] Comment on above: Performed By: #### L 500.4050, L100.0100 ####[facility] [address] [place], [address] Neutrophils/100 WBC (Bld) 64.0 % Normal 47-70 [facility] Comment on above: Performed By: #### L 500.4050, L100.0100 ####[facility] [address] [place], [address] Nucleated RBC (Bld) [#/Vol] 0 10*3/uL Normal 0-5 [facility] Comment on above: Performed By: #### L 500.4050, L100.0100 ####[facility] [address] [place], [address] Platelet mean volume (Bld) [Entitic vol] 9.8 fL Normal 6.2-12.0 [facility] Comment on above: Performed By: #### L 500.4050, L100.0100 ####[facility] [address] [place], [address] Platelets (Bld) [#/Vol] 274 10*3/uL Normal 150-450 [facility] Comment on above: Performed By: #### L 500.4050, L100.0100 ####[facility] [address] [place], [address] RBC (Bld) [#/Vol] 4.50 10*6/uL Low 4.6-6.2 [facility] Comment on above: Performed By: #### L 500.4050, L100.0100 ####[facility] [address] [place], [address] RDW SD 43.2 fl Normal 35.1-43.9 [facility] Comment on above: Performed By: #### L 500.4050, L100.0100 ####[facility] [address] [place], [address] WBC (Bld) [#/Vol] 6.4 10*3/uL Normal 4.4-11.0 [facility] Comment on above: Performed By: #### L 500.4050, L100.0100 ####[facility] [address] [place], [address] Carbon dioxide measurementOr dered By: Mariela Olson on 09-05-2024 CO2 [Moles/Vol] 30.0 mmol/L 21.0-32.0 [facility] Chloride measurementOrdered By: Mariela Olson on 09-05-2024 Chloride [Moles/Vol] 98 mmol/L 98-107 [facility] Comprehensive Metabolic Prof ilon 09-05-2024 Albumin [Mass/Vol] 3.8 g/dL Normal 3.2-5.0 [facility] Comment on above: Performed By: #### L 500.4050, L100.0100 ####[facility] [address] [place], [address] Albumin/Globulin [Mass ratio] 1.0 {ratio} Normal 0.9-2.4 [facility] Comment on above: Performed By: #### L 500.4050, L100.0100 ####[facility] [address] [place], [address] ALK P 106 U/L Normal 45-117 [facility] Comment on above: Performed By: #### L 500.4050, L100.0100 ####[facility] [address] [place], [address] ALT [Catalytic activity/Vol] 30 U/L Normal 16-61 [facility] Comment on above: Performed By: #### L 500.4050, L100.0100 ####[facility] [address] [place], [address] AST [Catalytic activity/Vol] 27 U/L Normal 15-37 [facility] Comment on above: Performed By: #### L 500.4050, L100.0100 ####[facility] [address] [place], [address] Bilirubin [Mass/Vol] 0.80 mg/dL Normal 0.20-1.00 [facility] Comment on above: Result Comment: For patients on eltrombopag therapy, use of Dimension Kamas TBIL is not recommended. Performed By: #### L 500.4050, L100.0100 ####[facility] [address] [place], [address] BUN/CRE 13.0 RATIO Normal 10-20 [facility] Comment on above: Performed By: #### L 500.4050, L100.0100 ####[facility] [address] [place], [address] CA,Total 9.8 mg/dL Normal 8.5-10.1 [facility] Comment on above: Performed By: #### L 500.4050, L100.0100 ####[facility] [address] [place], [address] Chloride [Moles/Vol] 98 mmol/L Normal 98-107 [facility] Comment on above: Performed By: #### L 500.4050, L100.0100 ####[facility] [address] [place], [address] CO2 [Moles/Vol] 30.0 mmol/L Normal 21.0-32.0 [facility] Comment on above: Performed By: #### L 500.4050, L100.0100 ####[facility] [address] [place], [address] Creatinine [Mass/Vol] 1.23 mg/dL Normal 0.70-1.30 [facility] Comment on above: Result Comment: The validity of the calculated GFR GFRAA in patients over70 years has not been determined. Clinical correlation isessential. Performed By: #### L 500.4050, L100.0100 ####[facility] [address] [place], [address] EST GFR - AA 73 mL/min Normal >60 [facility] Comment on above: Result Comment: Afri can Malagasy GFR Calc Performed By: #### L 500.4050, L100.0100 ####[facility] [address] [place], [address] GAP 7 Normal 5-15 [facility] Comment on above: Performed By: #### L 500.4050, L100.0100 ####[facility] [address] [place], [address] GFR/1.73 sq M.predicted among non-blacks MDRD (S/P/Bld) [Vol rate/Area] 60 mL/min/{1.73_m2} Normal >60 [facility] Comment on above: Result Comment: Non- GFR Calc Performed By: #### L 500.4050, L100.0100 ####[facility] [address] [place], [address] Globulin (S) [Mass/Vol] 3.7 g/dL Normal 2.2-4.2 [facility] Comment on above: Performed By: #### L 500.4050, L100.0100 ####[facility] [address] [place], [address] Glucose [Mass/Vol] 99 mg/dL Normal 74-106 [facility] Comment on above: Performed By: #### L 500.4050, L100.0100 ####[facility] [address] [place], [address] Potassium [Moles/Vol] 4.3 mmol/L Normal 3.5-5.1 [facility] Comment on above: Performed By: #### L 500.4050, L100.0100 ####[facility] [address] [place], [address] Sodium [Moles/Vol] 135 mmol/L Low 136-145 [facility] Comment on above: Performed By: #### L 500.4050, L100.0100 ####[facility] [address] [place], [address] T PROT 7.5 g/dL Normal 6.4-8.2 [facility] Comment on above: Performed By: #### L 500.4050, L100.0100 ####[facility] [address] [place], [address] Urea nitrogen [Mass/Vol] 16 mg/dL Normal 7-18 [facility] Comment on above: Performed By: #### L 500.4050, L100.0100 ####[facility] [address] [place], [address] Eosinophil percentageOrdered By: Mariela Shahram on 09-05-2024 Eosinophils/100 WBC (Bld) 3.1 % 0-5 [facility] Erythrocyte distribution wid th ratioOrdered By: [place] Shahram on 09-05-2024 Erythrocyte distribution width (RBC) [Ratio] 13.3 % 11.6-14.6 [facility] Erythrocyte distribution wid th standard deviationOrdered By: [place] Shahram on 09-05-2024 Erythrocyte distribution width (RBC) [Entitic vol] 43.2 fL 35.1-43.9 [facility] Erythrocyte distribution width (RBC) [Ratio] 43.2 fl 35.1-43.9 [facility] Estimated glomerular filtrat ion rate (GFR) AmericanOrdered By: Marielabruce Olson on 09-05-2024 Estimated GFR (MDRD) Amer 73 mL/min >60 [facility] Comment on above: GFR Calc Glomerular filtration rate ( GFR) estimationOrdered By: Marielabruce Olson on 09-05-2024 Estimated GFR (MDRD) Non-Af Amer 60 mL/min >60 [facility] Comment on above: Non- GFR Calc GFR/1.73 sq M.predicted among non-blacks MDRD (S/P/Bld) [Vol rate/Area] 60 mL/min/{1.73_m2} >60 [facility] Comment on above: Non- GFR Calc Glucose measurementOrdered B y: Mariela Olson on 09-05-2024 Glucose [Mass/Vol] 99 mg/dL 74-106 [facility] Hematocrit Auto (Bld) [Volum e fraction]Ordered By: Marielabruce Olson on 09-05-2024 Hematocrit (Bld) [Volume fraction] 39.9 % Low 40-54 [facility] Hemoglobin measurementOrdere d By: Mariela Olson on 09-05-2024 Hemoglobin (Bld) [Mass/Vol] 13.3 g/dL 13.0-16.5 [facility] Immature granulocytes/100 WB C Auto (Bld)Ordered By: Marielabruce Olson on 09-05-2024 Immature granulocytes/100 WBC (Bld) 0.200 % 0.0-0.9 [facility] Comment on above: IG% - Immature Granu locytes (promyelocytes, myelocytes and metamyelocytes) > 1% indicates that a LEFT SHIFT is Present. Laboratory - Chemistry and C hemistry - challengeOrdered By: Mariela Olson on 09-05-2024 AST [Catalytic activity/Vol] 27 U/L 15- [facility] Lymphocytes Auto (Unsp spec) [#/Vol]Ordered By: Mariela Olson on 09-05-2024 Lymphocytes (Bld) [#/Vol] 1.41 10*3/uL 0.83-4.51 [facility] Lymphocytes/100 WBC Auto (Un sp spec)Ordered By: Marielabruce Olson on 09-05-2024 Lymphocytes/100 WBC (Bld) 22.2 % 19-41 [facility] MCV (mean corpuscular volume ) determinationOrdered By: Marielabruce Olson on 09-05-2024 MCV (RBC) [Entitic vol] 88.7 fL 80-94 [facility] Mean corpuscular hemoglobin (MCH) determinationOrdered By: Mariela Olson on 09-05-2024 MCH (RBC) [Entitic mass] 29.6 pg 27.0-32.0 [facility] Mean corpuscular hemoglobin concentration (MCHC) determinationOrdered By: Marielabruce Olson on 09-05-2024 MCHC (RBC) [Mass/Vol] 33.3 g/dL 32-36 [facility] Mean platelet volume determi nationOrdered By: Mariela Olson on 09-05-2024 Platelet mean volume (Bld) [Entitic vol] 9.8 fL 6.2-12.0 [facility] Monocyte percentageOrdered B y: Mariela Olson on 09-05-2024 Monocytes/100 WBC (Bld) 10.2 % High 0-10 [facility] Neutrophil percentageOrdered By: Marielabruce Olson on 09-05-2024 Neutrophils/100 WBC (Bld) 64.0 % 47-70 [facility] No Panel InformationOrdered By: Mariela Olson on 09-05-2024 27 U/L 15- [facility] Nucleated red blood cell per centageOrdered By: Mariela Olson on 09-05-2024 Nucleated RBC/100 WBC (Bld) [Ratio] 0 % 0-5 [facility] Platelet countOrdered By: Ra caio Olson on 09-05-2024 Platelets (Bld) [#/Vol] 274 10*3/uL 150-450 [facility] Potassium measurementOrdered By: Mariela Olson on 09-05-2024 Potassium [Moles/Vol] 4.3 mmol/L 3.5-5.1 [facility] RBC Auto (Bld) [#/Vol]Ordere d By: Mariela Olson on 09-05-2024 RBC (Bld) [#/Vol] 4.50 10*6/uL Low 4.6-6.2 [facility] Serum anion gap measurementO rdered By: Mariela Olson on 09-05-2024 Anion gap [Moles/Vol] 7 mmol/L 5-15 [facility] Serum globulin measurementOr dered By: Mariela Olson on 09-05-2024 Globulin (S) [Mass/Vol] 3.7 g/dL 2.2-4.2 [facility] Serum or plasma alanine carrion otransferase (ALT) measurementOrdered By: Mariela Olson on 09-05-2024 ALT [Catalytic activity/Vol] 30 U/L 16-61 [facility] Serum or plasma albumin shagufta urement (mass/volume)Ordered By: Mariela Olson on 09-05-2024 Albumin [Mass/Vol] 3.8 g/dL 3.2-5.0 [facility] Serum or plasma alkaline airam sphatase measurementOrdered By: Mariela Olson 09-05-2024 ALP [Catalytic activity/Vol] 106 U/L 45-117 [facility] Serum or plasma calcium shagufta urement (mass/volume)Ordered By: Mariela Olson 09-05-2024 Calcium [Mass/Vol] 9.8 mg/dL 8.5-10.1 [facility] Serum or plasma creatinine m easurement (mass/volume)Ordered By: Mariela Olson on 09-05-2024 Creatinine [Mass/Vol] 1.23 mg/dL 0.70-1.30 [facility] Comment on above: The validity of the calculated GFR & GFRAA in patients over 70 years has not been determined. Clinical correlation is essential. Serum or plasma urea nitroge n measurement (mass/volume)Ordered By: Mariela Cifuentesgar on 09-05-2024 Urea nitrogen [Mass/Vol] 16 mg/dL 7-18 [facility] Sodium levelOrdered By: Ana M Olson on 09-05-2024 Sodium [Moles/Vol] 135 mmol/L Low 136-145 [facility] Total proteinOrdered By: Hortencia Olson on 09-05-2024 Protein [Mass/Vol] 7.5 g/dL 6.4-8.2 [facility] White blood cell (WBC) count Ordered By: Mariela Cifuentesgar on 09-05-2024 WBC (Bld) [#/Vol] 6.4 10*3/uL 4.4-11.0 [facility] Oncology Visit Reporton Oncology Visit Report Normal [facility] Carcinoembryonic Antigenon 09-19-2023 CEA 6.6 ng/mL High 0.0-4.7 [facility] Comment on above: Result Comment: Nons mokers <3.9 [facility] <5.[facility] Electrochemiluminescence Immunoassay(ECLIA)Values obtained with different assay methods or kitscannot be used interchangeably. Results cannot beinterpreted as absolute evidence of the presence orabsence of malignant disease.Performed at: [place] [id number] Director: Jian Paredes PhD, Phone: [phone] Performed By: #### L 500.4050, L100.0100, L3100.2300 ####[facility] [address] [place], [place], [id number] CBC W/Diff, Automatedon 07-01 Absolute Lymph 1.90 X10 3/uL Normal 0.83-4.51 [facility] Comment on above: Performed By: #### L 500.4050, L100.0100, L3100.2300 ####[facility] [address] [place], [address] Absolute Neut 3.9 X10 3/uL Normal 2.0-7.7 [facility] Comment on above: Performed By: #### L 500.4050, L100.0100, L3100.2300 ####[facility] [address] [place], [address] Basophils/100 WBC (Bld) 0.3 % Normal 0-1 [facility] Comment on above: Performed By: #### L 500.4050, L100.0100, L3100.2300 ####[facility] [address] [place], [address] Eosinophils/100 WBC (Bld) 5.3 % High 0-5 [facility] Comment on above: Performed By: #### L 500.4050, L100.0100, L3100.2300 ####[facility] [address] [place], [address] Erythrocyte distribution width (RBC) [Ratio] 17.1 % High 11.6-14.6 [facility] Comment on above: Performed By: #### L 500.4050, L100.0100, L3100.2300 ####[facility] [address] [place], [address] Hematocrit (Bld) [Volume fraction] 36.4 % Low 40-54 [facility] Comment on above: Performed By: #### L 500.4050, L100.0100, L3100.2300 ####[facility] [address] [place], [address] Hemoglobin (Bld) [Mass/Vol] 11.8 g/dL Low 13.0-16.5 [facility] Comment on above: Performed By: #### L 500.4050, L100.0100, L3100.2300 ####[facility] [address] [place], [address] IG% 0.300 Normal 0.0-0.9 [facility] Comment on above: Result Comment: IG% - Immature Granulocytes (promyelocytes, myelocytes andmetamyelocytes) > 1% indicates that a LEFT SHIFT is Present. Performed By: #### L 500.4050, L100.0100, L3100.2300 ####[facility] [address] [place], [address] Lymphocytes/100 WBC (Bld) 27.4 % Normal 19-41 [facility] Comment on above: Performed By: #### L 500.4050, L100.0100, L3100.2300 ####[facility] [address] [place], [address] MCH (RBC) [Entitic mass] 28.1 pg Normal 27.0-32.0 [facility] Comment on above: Performed By: #### L 500.4050, L100.0100, L3100.2300 ####[facility] [address] [place], [address] MCHC (RBC) [Mass/Vol] 32.4 g/dL Normal 32-36 [facility] Comment on above: Performed By: #### L 500.4050, L100.0100, L3100.2300 ####[facility] [address] [place], [address] MCV (RBC) [Entitic vol] 86.7 fL Normal 80-94 [facility] Comment on above: Performed By: #### L 500.4050, L100.0100, L3100.2300 ####[facility] [address] [place], [address] Monocytes/100 WBC (Bld) 11.1 % High 0-10 [facility] Comment on above: Performed By: #### L 500.4050, L100.0100, L3100.2300 ####[facility] [address] [place], [address] Neutrophils/100 WBC (Bld) 55.6 % Normal 47-70 [facility] Comment on above: Performed By: #### L 500.4050, L100.0100, L3100.2300 ####[facility] [address] [place], [address] Nucleated RBC (Bld) [#/Vol] 0 10*3/uL Normal 0-5 [facility] Comment on above: Performed By: #### L 500.4050, L100.0100, L3100.2300 ####[facility] [address] [place], [address] Platelet mean volume (Bld) [Entitic vol] 9.4 fL Normal 6.2-12.0 [facility] Comment on above: Performed By: #### L 500.4050, L100.0100, L3100.2300 ####[facility] [address] [place], [address] Platelets (Bld) [#/Vol] 230 10*3/uL Normal 150-450 [facility] Comment on above: Performed By: #### L 500.4050, L100.0100, L3100.2300 ####[facility] [address] [place], [address] RBC (Bld) [#/Vol] 4.20 10*6/uL Low 4.6-6.2 [facility] Comment on above: Performed By: #### L 500.4050, L100.0100, L3100.2300 ####[facility] [address] [place], [address] RDW SD 54.4 fl High 35.1-43.9 [facility] Comment on above: Performed By: #### L 500.4050, L100.0100, L3100.2300 ####[facility] [address] [place], [address] WBC (Bld) [#/Vol] 6.9 10*3/uL Normal 4.4-11.0 [facility] Comment on above: Performed By: #### L 500.4050, L100.0100, L3100.2300 ####[facility] [address] [place], [address] Comprehensive Metabolic [facility] ilon 07-18-2024 Albumin [Mass/Vol] 3.6 g/dL Normal 3.2-5.0 [facility] Comment on above: Performed By: #### L 500.4050, L100.0100, L3100.2300 ####[facility] [address] [place], [address] Albumin/Globulin [Mass ratio] 1.0 {ratio} Normal 0.9-2.4 [facility] Comment on above: Performed By: #### L 500.4050, L100.0100, L3100.2300 ####[facility] [address] [place], [address] ALK P 114 U/L Normal 45-117 [facility] Comment on above: Performed By: #### L 500.4050, L100.0100, L3100.2300 ####[facility] [address] [place], [address] ALT [Catalytic activity/Vol] 33 U/L Normal 16-61 [facility] Comment on above: Performed By: #### L 500.4050, L100.0100, L3100.2300 ####[facility] [address] [place], [address] AST [Catalytic activity/Vol] 25 U/L Normal 15-37 [facility] Comment on above: Performed By: #### L 500.4050, L100.0100, L3100.2300 ####[facility] [address] [place], [address] Bilirubin [Mass/Vol] 0.30 mg/dL Normal 0.20-1.00 [facility] Comment on above: Result Comment: For patients on eltrombopag therapy, use of Dimension Kamas TBIL is not recommended. Performed By: #### L 500.4050, L100.0100, L3100.2300 ####[facility] [address] [place], [address] BUN/CRE 14.8 RATIO Normal 10-20 [facility] Comment on above: Performed By: #### L 500.4050, L100.0100, L3100.2300 ####[facility] [address] [place], [address] CA,Total 9.0 mg/dL Normal 8.5-10.1 [facility] Comment on above: Performed By: #### L 500.4050, L100.0100, L3100.2300 ####[facility] [address] [place], [address] Chloride [Moles/Vol] 104 mmol/L Normal 98-107 [facility] Comment on above: Performed By: #### L 500.4050, L100.0100, L3100.2300 ####[facility] [address] [place], [address] CO2 [Moles/Vol] 30.0 mmol/L Normal 21.0-32.0 [facility] Comment on above: Performed By: #### L 500.4050, L100.0100, L3100.2300 ####[facility] [address] [place], [address] Creatinine [Mass/Vol] 1.15 mg/dL Normal 0.70-1.30 [facility] Comment on above: Result Comment: The validity of the calculated GFR GFRAA in patients over70 years has not been determined. Clinical correlation isessential. Performed By: #### L 500.4050, L100.0100, L3100.2300 ####[facility] [address] [place], [address] ECRCL 47.90 ml/min Normal [facility] Comment on above: Performed By: #### L 500.4050, L100.0100, L3100.2300 ####[facility] [address] [place], [address] EST GFR - AA 79 mL/min Normal >60 [facility] Comment on above: Result Comment: Afri can Malagasy GFR Calc Performed By: #### L 500.4050, L100.0100, L3100.2300 ####[facility] [address] [place], [address] GAP 2 Low 5-15 [facility] Comment on above: Performed By: #### L 500.4050, L100.0100, L3100.2300 ####[facility] [address] [place], [address] GFR/1.73 sq M.predicted among non-blacks MDRD (S/P/Bld) [Vol rate/Area] 65 mL/min/{1.73_m2} Normal >60 [facility] Comment on above: Result Comment: Non- GFR Calc Performed By: #### L 500.4050, L100.0100, L3100.2300 ####[facility] [address] [place], [address] Globulin (S) [Mass/Vol] 3.6 g/dL Normal 2.2-4.2 [facility] Comment on above: Performed By: #### L 500.4050, L100.0100, L3100.2300 ####[facility] [address] [place], [address] Glucose [Mass/Vol] 105 mg/dL Normal 74-106 [facility] Comment on above: Result Comment: Fast ing Glucose result from 100 to 125 mg/dLsuggests IMPAIRED HOMEOSTASIS per A.D.A. criteria. Performed By: #### L 500.4050, L100.0100, L3100.2300 ####[facility] [address] [place], [address] Potassium [Moles/Vol] 4.0 mmol/L Normal 3.5-5.1 [facility] Comment on above: Performed By: #### L 500.4050, L100.0100, L3100.2300 ####[facility] [address] [place], [address] Sodium [Moles/Vol] 136 mmol/L Normal 136-145 [facility] Comment on above: Performed By: #### L 500.4050, L100.0100, L3100.2300 ####[facility] [address] [place], [address] T PROT 7.2 g/dL Normal 6.4-8.2 [facility] Comment on above: Performed By: #### L 500.4050, L100.0100, L3100.2300 ####[facility] [address] [place], [address] Urea nitrogen [Mass/Vol] 17 mg/dL Normal - [facility] Comment on above: Performed By: #### L 500.4050, L100.0100, L3100.2300 ####[facility] [address] [place], [address] Estimated glomerular filtrat ion rate (GFR) AmericanOrdered By: Papi Hernandez on 07-18-2024 Estimated GFR (MDRD) Amer 79 mL/min >60 [facility] Comment on above: GFR Calc Oncology Visit Reporton 07-01 Oncology Visit Report Normal [facility] CBC W/Diff, Automatedon 12-0 Absolute Lymph 1.59 X10 3/uL Normal 0.83-4.51 [facility] Comment on above: Performed By: #### L 300.3900, L100.0100 ####[facility] [address] [place], [address] Absolute Neut 3.4 X10 3/uL Normal 2.0-7.7 [facility] Comment on above: Performed By: #### L 300.3900, L100.0100 ####[facility] [address] [place], [address] Basophils/100 WBC (Bld) 0.5 % Normal 0-1 [facility] Comment on above: Performed By: #### L 300.3900, L100.0100 ####[facility] [address] [place], [address] Eosinophils/100 WBC (Bld) 4.7 % Normal 0-5 [facility] Comment on above: Performed By: #### L 300.3900, L100.0100 ####[facility] [address] [place], [address] Erythrocyte distribution width (RBC) [Ratio] 17.5 % High 11.6-14.6 [facility] Comment on above: Performed By: #### L 300.3900, L100.0100 ####[facility] [address] [place], [address] Hematocrit (Bld) [Volume fraction] 36.9 % Low 40-54 [facility] Comment on above: Performed By: #### L 300.3900, L100.0100 ####[facility] [address] [place], [address] Hemoglobin (Bld) [Mass/Vol] 11.5 g/dL Low 13.0-16.5 [facility] Comment on above: Performed By: #### L 300.3900, L100.0100 ####[facility] [address] [place], [address] IG% 0.300 Normal 0.0-0.9 [facility] Comment on above: Result Comment: IG% - Immature Granulocytes (promyelocytes, myelocytes andmetamyelocytes) > 1% indicates that a LEFT SHIFT is Present. Performed By: #### L 300.3900, L100.0100 ####[facility] [address] [place], [address] Lymphocytes/100 WBC (Bld) 26.6 % Normal 19-41 [facility] Comment on above: Performed By: #### L 300.3900, L100.0100 ####[facility] [address] [place], [address] MCH (RBC) [Entitic mass] 27.1 pg Normal 27.0-32.0 [facility] Comment on above: Performed By: #### L 300.3900, L100.0100 ####[facility] [address] [place], [address] MCHC (RBC) [Mass/Vol] 31.2 g/dL Low 32-36 [facility] Comment on above: Performed By: #### L 300.3900, L100.0100 ####[facility] [address] [place], [address] MCV (RBC) [Entitic vol] 87.0 fL Normal 80-94 [facility] Comment on above: Performed By: #### L 300.3900, L100.0100 ####[facility] [address] [place], [address] Monocytes/100 WBC (Bld) 10.5 % High 0-10 [facility] Comment on above: Performed By: #### L 300.3900, L100.0100 ####[facility] [address] [place], [address] Neutrophils/100 WBC (Bld) 57.4 % Normal 47-70 [facility] Comment on above: Performed By: #### L 300.3900, L100.0100 ####[facility] [address] [place], [address] Nucleated RBC (Bld) [#/Vol] 0 10*3/uL Normal 0-5 [facility] Comment on above: Performed By: #### L 300.3900, L100.0100 ####[facility] [address] [place], [address] Platelet mean volume (Bld) [Entitic vol] 9.2 fL Normal 6.2-12.0 [facility] Comment on above: Performed By: #### L 300.3900, L100.0100 ####[facility] [address] [place], [address] Platelets (Bld) [#/Vol] 316 10*3/uL Normal 150-450 [facility] Comment on above: Performed By: #### L 300.3900, L100.0100 ####[facility] [address] [place], [address] RBC (Bld) [#/Vol] 4.24 10*6/uL Low 4.6-6.2 [facility] Comment on above: Performed By: #### L 300.3900, L100.0100 ####[facility] [address] [place], [address] RDW SD 56.3 fl High 35.1-43.9 [facility] Comment on above: Performed By: #### L 300.3900, L100.0100 ####[facility] [address] [place], [address] WBC (Bld) [#/Vol] 6.0 10*3/uL Normal 4.4-11.0 [facility] Comment on above: Performed By: #### L 300.3900, L100.0100 ####[facility] [address] [place], [address] International normalized rat io (INR) calculationOrdered By: Sunny Mancia on 07-04-2024 INR Coag (Bld) [Relative time] 1.0 {INR} [facility] NATERAon 07-04-2024 NATURA SEE SCANNED REPORT Normal [facility] Comment on above: Performed By: #### L 900.0098 ####[facility] [address] [place], [address] Oncology Visit Reporton Oncology Visit Report Normal [facility] Prothrombin Time w/INRon INR Coag (PPP) [Relative time] 1.0 {INR} Normal [facility] Comment on above: Performed By: #### L 300.3900, L100.0100 ####[facility] [address] [place], [address] PT Coag (PPP) [Time] 12.8 s Normal 11.7-14.9 [facility] Comment on above: Performed By: #### L 300.3900, L100.0100 ####[facility] [address] [place], [address] Prothrombin timeOrdered By: Sunny Mancia on 07-04-2024 PT Coag (PPP) [Time] 12.8 s 11.7-14.9 [facility] Bronchoscopy Reporton 2023 Bronchoscopy Report Normal [facility] CK7 (initial)on 06-22-2024 CK7 (initial) Normal [facility] Comment on above: Performed By: #### P CK7 ####[facility] [address] [place], [address] EGD Reporton 06-22-2024 EGD Report Normal [facility] H Pylori (initial)on 024 H Pylori (initial) Normal [facility] Comment on above: Performed By: #### P H.PYLORI ####[facility] [address] [place], [address] MR/POSTOP.ANEon 06-22-2024 MR/POSTOP.ANE Normal [facility] MR/[id number] 06-22-2024 MR/POSTOPAN2 Normal [facility] Special Stain Group Ion 11-2 Special Stain Group I Normal [facility] Comment on above: Performed By: #### P SSI ####[facility] [address] [place], [address] Surgery Specimen Level Oscar 06-22-2024 Surgery Specimen Level IV Normal [facility] Comment on above: Performed By: #### P SUIV ####[facility] [address] [place], [address] CBC W/Diff, Automatedon 06-01 Absolute Lymph 1.50 X10 3/uL Normal 0.83-4.51 [facility] Comment on above: Order Comment: Comme nts: Post-operatively Performed By: #### L 100.0100 ####[facility] [address] [place], [address] Absolute Neut 5.3 X10 3/uL Normal 2.0-7.7 [facility] Comment on above: Order Comment: Comme nts: Post-operatively Performed By: #### L 100.0100 ####[facility] [address] [place], [address] Basophils/100 WBC (Bld) 0.3 % Normal 0-1 [facility] Comment on above: Order Comment: Comme nts: Post-operatively Performed By: #### L 100.0100 ####[facility] [address] [place], [address] Eosinophils/100 WBC (Bld) 1.8 % Normal 0-5 [facility] Comment on above: Order Comment: Comme nts: Post-operatively Performed By: #### L 100.0100 ####[facility] [address] [place], [address] Erythrocyte distribution width (RBC) [Ratio] 18.0 % High 11.6-14.6 [facility] Comment on above: Order Comment: Comme nts: Post-operatively Performed By: #### L 100.0100 ####[facility] [address] [place], [address] Hematocrit (Bld) [Volume fraction] 36.1 % Low 40-54 [facility] Comment on above: Order Comment: Comme nts: Post-operatively Performed By: #### L 100.0100 ####[facility] [address] [place], [address] Hemoglobin (Bld) [Mass/Vol] 11.3 g/dL Low 13.0-16.5 [facility] Comment on above: Order Comment: Comme nts: Post-operatively Performed By: #### L 100.0100 ####[facility] [address] [place], [address] IG% 0.400 Normal 0.0-0.9 [facility] Comment on above: Order Comment: Comme nts: Post-operatively Result Comment: IG% - Immature Granulocytes (promyelocytes, myelocytes andmetamyelocytes) > 1% indicates that a LEFT SHIFT is Present. Performed By: #### L 100.0100 ####[facility] [address] [place], [address] Lymphocytes/100 WBC (Bld) 19.5 % Normal 19-41 [facility] Comment on above: Order Comment: Comme nts: Post-operatively Performed By: #### L 100.0100 ####[facility] [address] [place], [address] MCH (RBC) [Entitic mass] 27.0 pg Normal 27.0-32.0 [facility] Comment on above: Order Comment: Comme nts: Post-operatively Performed By: #### L 100.0100 ####[facility] [address] [place], [address] MCHC (RBC) [Mass/Vol] 31.3 g/dL Low 32-36 [facility] Comment on above: Order Comment: Comme nts: Post-operatively Performed By: #### L 100.0100 ####[facility] [address] [place], [address] MCV (RBC) [Entitic vol] 86.4 fL Normal 80-94 [facility] Comment on above: Order Comment: Comme nts: Post-operatively Performed By: #### L 100.0100 ####[facility] [address] [place], [address] Monocytes/100 WBC (Bld) 9.2 % Normal 0-10 [facility] Comment on above: Order Comment: Comme nts: Post-operatively Performed By: #### L 100.0100 ####[facility] [address] [place], [address] Neutrophils/100 WBC (Bld) 68.8 % Normal 47-70 [facility] Comment on above: Order Comment: Comme nts: Post-operatively Performed By: #### L 100.0100 ####[facility] [address] [place], [address] Nucleated RBC (Bld) [#/Vol] 0 10*3/uL Normal 0-5 [facility] Comment on above: Order Comment: Comme nts: Post-operatively Performed By: #### L 100.0100 ####[facility] [address] [place], [address] Platelet mean volume (Bld) [Entitic vol] 9.3 fL Normal 6.2-12.0 [facility] Comment on above: Order Comment: Comme nts: Post-operatively Performed By: #### L 100.0100 ####[facility] [address] [place], [address] Platelets (Bld) [#/Vol] 294 10*3/uL Normal 150-450 [facility] Comment on above: Order Comment: Comme nts: Post-operatively Performed By: #### L 100.0100 ####[facility] [address] [place], [address] RBC (Bld) [#/Vol] 4.18 10*6/uL Low 4.6-6.2 [facility] Comment on above: Order Comment: Comme nts: Post-operatively Performed By: #### L 100.0100 ####[facility] [address] [place], [address] RDW SD 57.7 fl High 35.1-43.9 [facility] Comment on above: Order Comment: Comme nts: Post-operatively Performed By: #### L 100.0100 ####[facility] [address] [place], [address] WBC (Bld) [#/Vol] 7.7 10*3/uL Normal 4.4-11.0 [facility] Comment on above: Order Comment: Comme nts: Post-operatively Performed By: #### L 100.0100 ####[facility] [address] [place], [address] Pulmonary Visit Reporton Pulmonary Visit Report Normal [facility] Basic Metabolic Profile (BMP )on 06-10-2024 BUN/CRE 17.0 RATIO Normal 10-20 [facility] Comment on above: Performed By: #### L 500.2500, L100.0100 ####[facility] [address] [place], [address] CA,Total 8.7 mg/dL Normal 8.5-10.1 [facility] Comment on above: Performed By: #### L 500.2500, L100.0100 ####[facility] [address] [place], [address] Chloride [Moles/Vol] 108 mmol/L High 98-107 [facility] Comment on above: Performed By: #### L 500.2500, L100.0100 ####[facility] [address] [place], [address] CO2 [Moles/Vol] 26.0 mmol/L Normal 21.0-32.0 [facility] Comment on above: Performed By: #### L 500.2500, L100.0100 ####[facility] [address] [place], [address] Creatinine [Mass/Vol] 1.12 mg/dL Normal 0.70-1.30 [facility] Comment on above: Result Comment: The validity of the calculated GFR GFRAA in patients over70 years has not been determined. Clinical correlation isessential. Performed By: #### L 500.2500, L100.0100 ####[facility] [address] [place], [address] ECRCL 49.18 ml/min Normal [facility] Comment on above: Performed By: #### L 500.2500, L100.0100 ####[facility] [address] [place], [address] EST GFR - AA 81 mL/min Normal >60 [facility] Comment on above: Result Comment: Afri can Malagasy GFR Calc Performed By: #### L 500.2500, L100.0100 ####[facility] [address] [place], [address] GAP 4 Low 5-15 [facility] Comment on above: Performed By: #### L 500.2500, L100.0100 ####[facility] [address] [place], [address] GFR/1.73 sq M.predicted among non-blacks MDRD (S/P/Bld) [Vol rate/Area] 67 mL/min/{1.73_m2} Normal >60 [facility] Comment on above: Result Comment: Non- GFR Calc Performed By: #### L 500.2500, L100.0100 ####[facility] [address] [place], [address] Glucose [Mass/Vol] 100 mg/dL Normal 74-106 [facility] Comment on above: Result Comment: Fast ing Glucose result from 100 to 125 mg/dLsuggests IMPAIRED HOMEOSTASIS per A.D.A. criteria. Performed By: #### L 500.2500, L100.0100 ####[facility] [address] [place], [address] Potassium [Moles/Vol] 4.2 mmol/L Normal 3.5-5.1 [facility] Comment on above: Performed By: #### L 500.2500, L100.0100 ####[facility] [address] [place], [address] Sodium [Moles/Vol] 138 mmol/L Normal 136-145 [facility] Comment on above: Performed By: #### L 500.2500, L100.0100 ####[facility] [address] [place], [address] Urea nitrogen [Mass/Vol] 19 mg/dL High 7-18 [facility] Comment on above: Performed By: #### L 500.2500, L100.0100 ####[facility] [address] [place], [address] CBC W/Diff, Automatedon 11- 0-2023 Absolute Lymph 1.57 X10 3/uL Normal 0.83-4.51 [facility] Comment on above: Performed By: #### L 500.2500, L100.0100 ####[facility] [address] [place], [address] Absolute Neut 3.5 X10 3/uL Normal 2.0-7.7 [facility] Comment on above: Performed By: #### L 500.2500, L100.0100 ####[facility] [address] [place], [address] Basophils/100 WBC (Bld) 0.2 % Normal 0-1 [facility] Comment on above: Performed By: #### L 500.2500, L100.0100 ####[facility] [address] [place], [address] Eosinophils/100 WBC (Bld) 3.9 % Normal 0-5 [facility] Comment on above: Performed By: #### L 500.2500, L100.0100 ####[facility] [address] [place], [address] Erythrocyte distribution width (RBC) [Ratio] 18.6 % High 11.6-14.6 [facility] Comment on above: Performed By: #### L 500.2500, L100.0100 ####[facility] [address] [place], [address] Hematocrit (Bld) [Volume fraction] 32.1 % Low 40-54 [facility] Comment on above: Performed By: #### L 500.2500, L100.0100 ####[facility] [address] [place], [address] Hemoglobin (Bld) [Mass/Vol] 10.2 g/dL Low 13.0-16.5 [facility] Comment on above: Performed By: #### L 500.2500, L100.0100 ####[facility] [address] [place], [address] IG% 0.300 Normal 0.0-0.9 [facility] Comment on above: Result Comment: IG% - Immature Granulocytes (promyelocytes, myelocytes andmetamyelocytes) > 1% indicates that a LEFT SHIFT is Present. Performed By: #### L 500.2500, L100.0100 ####[facility] [address] [place], [address] Lymphocytes/100 WBC (Bld) 25.7 % Normal 19-41 [facility] Comment on above: Performed By: #### L 500.2500, L100.0100 ####[facility] [address] [place], [address] MCH (RBC) [Entitic mass] 27.1 pg Normal 27.0-32.0 [facility] Comment on above: Performed By: #### L 500.2500, L100.0100 ####[facility] [address] [place], [address] MCHC (RBC) [Mass/Vol] 31.8 g/dL Low 32-36 [facility] Comment on above: Performed By: #### L 500.2500, L100.0100 ####[facility] [address] [place], [address] MCV (RBC) [Entitic vol] 85.4 fL Normal 80-94 [facility] Comment on above: Performed By: #### L 500.2500, L100.0100 ####[facility] [address] [place], [address] Monocytes/100 WBC (Bld) 12.4 % High 0-10 [facility] Comment on above: Performed By: #### L 500.2500, L100.0100 ####[facility] [address] [place], [address] Neutrophils/100 WBC (Bld) 57.5 % Normal 47-70 [facility] Comment on above: Performed By: #### L 500.2500, L100.0100 ####[facility] [address] [place], [address] Nucleated RBC (Bld) [#/Vol] 0 10*3/uL Normal 0-5 [facility] Comment on above: Performed By: #### L 500.2500, L100.0100 ####[facility] [address] [place], [address] Platelet mean volume (Bld) [Entitic vol] 9.6 fL Normal 6.2-12.0 [facility] Comment on above: Performed By: #### L 500.2500, L100.0100 ####[facility] [address] [place], [address] Platelets (Bld) [#/Vol] 275 10*3/uL Normal 150-450 [facility] Comment on above: Performed By: #### L 500.2500, L100.0100 ####[facility] [address] [place], [address] RBC (Bld) [#/Vol] 3.76 10*6/uL Low 4.6-6.2 [facility] Comment on above: Performed By: #### L 500.2500, L100.0100 ####[facility] [address] [place], [address] RDW SD 58.0 fl High 35.1-43.9 [facility] Comment on above: Performed By: #### L 500.2500, L100.0100 ####[facility] [address] [place], [address] WBC (Bld) [#/Vol] 6.1 10*3/uL Normal 4.4-11.0 [facility] Comment on above: Performed By: #### L 500.2500, L100.0100 ####[facility] [address] [place], [address] Discharge Instructionon 06-01 Discharge Instruction Normal [facility] BRCon 06-09-2024 RC Normal Neg [facility] Comment on above: Result Comment: [id number] OP RC TRANSFUSED 06/09/24 1143 Performed By: #### B TS, [facility] ####[facility] [address] [place], [address] CBC W/Diff, Automatedon 11-0 Absolute Lymph 1.40 X10 3/uL Normal 0.83-4.51 [facility] Comment on above: Performed By: #### L 100.0100, L500.4050, L501.5200 ####[facility] [address] [place], [address] Absolute Neut 4.2 X10 3/uL Normal 2.0-7.7 [facility] Comment on above: Performed By: #### L 100.0100, L500.4050, L501.5200 ####[facility] [address] [place], [address] Basophils/100 WBC (Bld) 0.3 % Normal 0-1 [facility] Comment on above: Performed By: #### L 100.0100, L500.4050, L501.5200 ####[facility] [address] [place], [address] Eosinophils/100 WBC (Bld) 3.2 % Normal 0-5 [facility] Comment on above: Performed By: #### L 100.0100, L500.4050, L501.5200 ####[facility] [address] [place], [address] Erythrocyte distribution width (RBC) [Ratio] 19.2 % High 11.6-14.6 [facility] Comment on above: Performed By: #### L 100.0100, L500.4050, L501.5200 ####[facility] [address] [place], [address] Hematocrit (Bld) [Volume fraction] 26.4 % Low 40-54 [facility] Comment on above: Performed By: #### L 100.0100, L500.4050, L501.5200 ####[facility] [address] [place], [address] Hemoglobin (Bld) [Mass/Vol] 8.2 g/dL Low 13.0-16.5 [facility] Comment on above: Performed By: #### L 100.0100, L500.4050, L501.5200 ####[facility] [address] [place], [address] IG% 0.300 Normal 0.0-0.9 [facility] Comment on above: Result Comment: IG% - Immature Granulocytes (promyelocytes, myelocytes andmetamyelocytes) > 1% indicates that a LEFT SHIFT is Present. Performed By: #### L 100.0100, L500.4050, L501.5200 ####[facility] [address] [place], [address] Lymphocytes/100 WBC (Bld) 21.6 % Normal 19-41 [facility] Comment on above: Performed By: #### L 100.0100, L500.4050, L501.5200 ####[facility] [address] [place], [address] MCH (RBC) [Entitic mass] 26.8 pg Low 27.0-32.0 [facility] Comment on above: Performed By: #### L 100.0100, L500.4050, L501.5200 ####[facility] [address] [place], [address] MCHC (RBC) [Mass/Vol] 31.1 g/dL Low 32-36 [facility] Comment on above: Performed By: #### L 100.0100, L500.4050, L501.5200 ####[facility] [address] [place], [address] MCV (RBC) [Entitic vol] 86.3 fL Normal 80-94 [facility] Comment on above: Performed By: #### L 100.0100, L500.4050, L501.5200 ####[facility] [address] [place], [address] Monocytes/100 WBC (Bld) 10.2 % High 0-10 [facility] Comment on above: Performed By: #### L 100.0100, L500.4050, L501.5200 ####[facility] [address] [place], [address] Neutrophils/100 WBC (Bld) 64.4 % Normal 47-70 [facility] Comment on above: Performed By: #### L 100.0100, L500.4050, L501.5200 ####[facility] [address] [place], [address] Nucleated RBC (Bld) [#/Vol] 0 10*3/uL Normal 0-5 [facility] Comment on above: Performed By: #### L 100.0100, L500.4050, L501.5200 ####[facility] [address] [place], [address] Platelet mean volume (Bld) [Entitic vol] 9.8 fL Normal 6.2-12.0 [facility] Comment on above: Performed By: #### L 100.0100, L500.4050, L501.5200 ####[facility] [address] [place], [address] Platelets (Bld) [#/Vol] 262 10*3/uL Normal 150-450 [facility] Comment on above: Performed By: #### L 100.0100, L500.4050, L501.5200 ####[facility] [address] [place], [address] RBC (Bld) [#/Vol] 3.06 10*6/uL Low 4.6-6.2 [facility] Comment on above: Performed By: #### L 100.0100, L500.4050, L501.5200 ####[facility] [address] [place], [address] RDW SD 59.4 fl High 35.1-43.9 [facility] Comment on above: Performed By: #### L 100.0100, L500.4050, L501.5200 ####[facility] [address] [place], [address] WBC (Bld) [#/Vol] 6.5 10*3/uL Normal 4.4-11.0 [facility] Comment on above: Performed By: #### L 100.0100, L500.4050, L501.5200 ####[facility] [address] [place], [address] Comprehensive Metabolic [facility] 06-09-2024 Albumin [Mass/Vol] 2.9 g/dL Low 3.2-5.0 [facility] Comment on above: Performed By: #### L 100.0100, L500.4050, L501.5200 ####[facility] [address] [place], [address] Albumin/Globulin [Mass ratio] 1.1 {ratio} Normal 0.9-2.4 [facility] Comment on above: Performed By: #### L 100.0100, L500.4050, L501.5200 ####[facility] [address] [place], [address] ALK P 76 U/L Normal 45-117 [facility] Comment on above: Performed By: #### L 100.0100, L500.4050, L501.5200 ####[facility] [address] [place], [address] ALT [Catalytic activity/Vol] 12 U/L Low 16-61 [facility] Comment on above: Performed By: #### L 100.0100, L500.4050, L501.5200 ####[facility] [facility] [address] [place], [address] AST [Catalytic activity/Vol] 14 U/L Low 15-37 [facility] Comment on above: Performed By: #### L 100.0100, L500.4050, L501.5200 ####[facility] [address], [address] Bilirubin [Mass/Vol] 0.60 mg/dL Normal 0.20-1.00 [facility] Comment on above: Result Comment: For patients on eltrombopag therapy, use of Dimension Kamas TBIL is not recommended. Performed By: #### L 100.0100, L500.4050, L501.5200 ####[facility] [address], [address] BUN/CRE 19.6 RATIO Normal 10-20 [facility] Comment on above: Performed By: #### L 100.0100, L500.4050, L501.5200 ####[facility] [address] [place], [address] CA,Total 7.9 mg/dL Low 8.5-10.1 [facility] Comment on above: Performed By: #### L 100.0100, L500.4050, L501.5200 ####[facility] [address] [place], [address] Chloride [Moles/Vol] 105 mmol/L Normal 98-107 [facility] Comment on above: Performed By: #### L 100.0100, L500.4050, L501.5200 ####[facility] [address] [place], [address] CO2 [Moles/Vol] 24.0 mmol/L Normal 21.0-32.0 [facility] Comment on above: Performed By: #### L 100.0100, L500.4050, L501.5200 ####[facility] [address] [place], [address] Creatinine [Mass/Vol] 1.12 mg/dL Normal 0.70-1.30 [facility] Comment on above: Result Comment: The validity of the calculated GFR GFRAA in patients over70 years has not been determined. Clinical correlation isessential. Performed By: #### L 100.0100, L500.4050, L501.5200 ####[facility] [address] [place], [address] ECRCL 49.18 ml/min Normal [facility] Comment on above: Performed By: #### L 100.0100, L500.4050, L501.5200 ####[facility] [address] [place], [address] EST GFR - AA 81 mL/min Normal >60 [facility] Comment on above: Result Comment: Afri can Malagasy GFR Calc Performed By: #### L 100.0100, L500.4050, L501.5200 ####[facility] [address] [place], [address] GAP 5 Normal 5-15 [facility] Comment on above: Performed By: #### L 100.0100, L500.4050, L501.5200 ####[facility] [address] [place], [address] GFR/1.73 sq M.predicted among non-blacks MDRD (S/P/Bld) [Vol rate/Area] 67 mL/min/{1.73_m2} Normal >60 [facility] Comment on above: Result Comment: Non- GFR Calc Performed By: #### L 100.0100, L500.4050, L501.5200 ####[facility] [address] [place], [address] Globulin (S) [Mass/Vol] 2.6 g/dL Normal 2.2-4.2 [facility] Comment on above: Performed By: #### L 100.0100, L500.4050, L501.5200 ####[facility] [address] [place], [address] Glucose [Mass/Vol] 103 mg/dL Normal 74-106 [facility] Comment on above: Result Comment: Fast ing Glucose result from 100 to 125 mg/dLsuggests IMPAIRED HOMEOSTASIS per A.D.A. criteria. Performed By: #### L 100.0100, L500.4050, L501.5200 ####[facility] [address] [place], [address] Potassium [Moles/Vol] 3.9 mmol/L Normal 3.5-5.1 [facility] Comment on above: Performed By: #### L 100.0100, L500.4050, L501.5200 ####[facility] [address] [place], [address] Sodium [Moles/Vol] 135 mmol/L Low 136-145 [facility] Comment on above: Performed By: #### L 100.0100, L500.4050, L501.5200 ####[facility] [address] [place], [address] T PROT 5.5 g/dL Low 6.4-8.2 [facility] Comment on above: Performed By: #### L 100.0100, L500.4050, L501.5200 ####[facility] [address] [place], [address] Urea nitrogen [Mass/Vol] 22 mg/dL High 7-18 [facility] Comment on above: Performed By: #### L 100.0100, L500.4050, L501.5200 ####[facility] [address] [place], [address] HH, Hemoglobin AND Hematocri ton 06-09-2024 Hematocrit (Bld) [Volume fraction] 27.8 % Low 40-54 [facility] Comment on above: Performed By: #### L 100.0600 ####[facility] [address] [place], [address] Hemoglobin (Bld) [Mass/Vol] 9.0 g/dL Low 13.0-16.5 [facility] Comment on above: Performed By: #### L 100.0600 ####[facility] [address] [place], [address] L501.4020on 06-09-2024 TROPONIN-I HS 88 pg/mL High 3.0-78.0 [facility] Comment on above: Order Comment: 'TROP ' Serial specimen #1, #2 or #3: 3 Result Comment: Plea se Note: New Test Units and Gender Specific Reference Ranges. For more information see Policy Stat Procedure Kamas High Sensitivity Troponin (TNIH) and attachments. Performed By: #### L 501.4020 ####[facility] [address] [place], [address] Magnesiumon 06-09-2024 Magnesium [Mass/Vol] 1.8 mg/dL Normal 1.6-2.6 [facility] Comment on above: Performed By: #### L 100.0100, L500.4050, L501.5200 ####[facility] [address] [place], [address] Type AND Screenon 06-09-2024 Ab SCREEN GEL Negative Normal [facility] Comment on above: Order Comment: CMV N EG? NNumber of units to transfuse: 1Reason for Ordering Blood: AcuteAre the blood/blood products to be transfused? YIs the patient having/had surgery? NWhen Maxine Performed By: #### B TS, [facility] [place] ####[facility] [address] [place], [address] ABO and Rh group Nom (Bld) Blood group O Rh(D) positive Normal [facility] Comment on above: Order Comment: CMV N EG? NNumber of units to transfuse: 1Reason for Ordering Blood: AcuteAre the blood/blood products to be transfused? YIs the patient having/had surgery? NWwilfredo Goodman Performed By: #### B JONES, [facility] ####[facility] [address] [place], [address] 12 Lead EKGon 06-08-2024 12 Lead EKG Normal [facility] BNP,B-Type NATRIURETIC PEPTI Иван 06-08-2024 Natriuretic peptide B (Bld) [Mass/Vol] 109.8 pg/mL High 0-100 [facility] Comment on above: Performed By: #### L 503.6620, L300.3900, L100.0100, L501.5425, L500.2500 ####[facility] [address] [place], [address] Basic Metabolic Profile (BMP )on 06-08-2024 BUN/CRE 18.2 RATIO Normal 10-20 [facility] Comment on above: Order Comment: 1Y Performed By: #### L 503.6620, L300.3900, L100.0100, L501.5425, L500.2500 ####[facility] [address] [place], [address] CA,Total 9.4 mg/dL Normal 8.5-10.1 [facility] Comment on above: Order Comment: 1Y Performed By: #### L 503.6620, L300.3900, L100.0100, L501.5425, L500.2500 ####[facility] [address] [place], [address] Chloride [Moles/Vol] 105 mmol/L Normal 98-107 [facility] Comment on above: Order Comment: 1Y Performed By: #### L 503.6620, L300.3900, L100.0100, L501.5425, L500.2500 ####[facility] [address] [place], [address] CO2 [Moles/Vol] 23.0 mmol/L Normal 21.0-32.0 [facility] Comment on above: Order Comment: 1Y Performed By: #### L 503.6620, L300.3900, L100.0100, L501.5425, L500.2500 ####[facility] [address] [place], [address] Creatinine [Mass/Vol] 1.21 mg/dL Normal 0.70-1.30 [facility] Comment on above: Order Comment: 1Y Result Comment: The validity of the calculated GFR GFRAA in patients over70 years has not been determined. Clinical correlation isessential. Performed By: #### L 503.6620, L300.3900, L100.0100, L501.5425, L500.2500 ####[facility] [address] [place], [address] ECRCL 45.52 ml/min Normal [facility] Comment on above: Order Comment: 1Y Performed By: #### L 503.6620, L300.3900, L100.0100, L501.5425, L500.2500 ####[facility] [address] [place], [address] EST GFR - AA 74 mL/min Normal >60 [facility] Comment on above: Order Comment: 1Y Result Comment: Afri can Malagasy GFR Calc Performed By: #### L 503.6620, L300.3900, L100.0100, L501.5425, L500.2500 ####[facility] [address] [place], [address] GAP 8 Normal 5-15 [facility] Comment on above: Order Comment: 1Y Performed By: #### L 503.6620, L300.3900, L100.0100, L501.5425, L500.2500 ####[facility] [address] [place], [address] GFR/1.73 sq M.predicted among non-blacks MDRD (S/P/Bld) [Vol rate/Area] 61 mL/min/{1.73_m2} Normal >60 [facility] Comment on above: Order Comment: 1Y Result Comment: Non- GFR Calc Performed By: #### L 503.6620, L300.3900, L100.0100, L501.5425, L500.2500 ####[facility] [address] [place], [address] Glucose [Mass/Vol] 127 mg/dL High 74-106 [facility] Comment on above: Order Comment: 1Y Result Comment: Fast ing Glucose result greater than or equal to 126 mg/dLsuggests DIABETES MELLITUS per A.D.A. criteria. Performed By: #### L 503.6620, L300.3900, L100.0100, L501.5425, L500.2500 ####[facility] [address] [place], [address] Potassium [Moles/Vol] 3.8 mmol/L Normal 3.5-5.1 [facility] Comment on above: Order Comment: 1Y Performed By: #### L 503.6620, L300.3900, L100.0100, L501.5425, L500.2500 ####[facility] [address] [place], [address] Sodium [Moles/Vol] 136 mmol/L Normal 136-145 [facility] Comment on above: Order Comment: 1Y Performed By: #### L 503.6620, L300.3900, L100.0100, L501.5425, L500.2500 ####[facility] [address] [place], [address] Urea nitrogen [Mass/Vol] 22 mg/dL High 7-18 [facility] Comment on above: Order Comment: 1Y Performed By: #### L 503.6620, L300.3900, L100.0100, L501.5425, L500.2500 ####[facility] [address] [place], [address] Biopsy/Inj or Needle Placeme nton - Biopsy/Inj or Needle Placement Normal [facility] CBC W/Diff, Automatedon Absolute Lymph 0.97 X10 3/uL Normal 0.83-4.51 [facility] Comment on above: Performed By: #### L 100.0100 ####[facility] [address] [place], [address] Absolute Neut 5.5 X10 3/uL Normal 2.0-7.7 [facility] Comment on above: Performed By: #### L 100.0100 ####[facility] [address] [place], [address] Basophils/100 WBC (Bld) 0.1 % Normal 0-1 [facility] Comment on above: Performed By: #### L 100.0100 ####[facility] [address] [place], [address] Eosinophils/100 WBC (Bld) 1.3 % Normal 0-5 [facility] Comment on above: Performed By: #### L 100.0100 ####[facility] [address] [place], [address] Erythrocyte distribution width (RBC) [Ratio] 18.9 % High 11.6-14.6 [facility] Comment on above: Performed By: #### L 100.0100 ####[facility] [address] [place], [address] Hematocrit (Bld) [Volume fraction] 27.6 % Low 40-54 [facility] Comment on above: Performed By: #### L 100.0100 ####[facility] [address] [place], [address] Hemoglobin (Bld) [Mass/Vol] 8.7 g/dL Low 13.0-16.5 [facility] Comment on above: Performed By: #### L 100.0100 ####[facility] [address] [place], [address] IG% 0.400 Normal 0.0-0.9 [facility] Comment on above: Result Comment: IG% - Immature Granulocytes (promyelocytes, myelocytes andmetamyelocytes) > 1% indicates that a LEFT SHIFT is Present. Performed By: #### L 100.0100 ####[facility] [address] [place], [address] Lymphocytes/100 WBC (Bld) 13.5 % Low 19-41 [facility] Comment on above: Performed By: #### L 100.0100 ####[facility] [address] [place], [address] MCH (RBC) [Entitic mass] 27.2 pg Normal 27.0-32.0 [facility] Comment on above: Performed By: #### L 100.0100 ####[facility] [address] [place], [address] MCHC (RBC) [Mass/Vol] 31.5 g/dL Low 32-36 [facility] Comment on above: Performed By: #### L 100.0100 ####[facility] [address] [place], [address] MCV (RBC) [Entitic vol] 86.3 fL Normal 80-94 [facility] Comment on above: Performed By: #### L 100.0100 ####[facility] [address] [place], [address] Monocytes/100 WBC (Bld) 8.1 % Normal 0-10 [facility] Comment on above: Performed By: #### L 100.0100 ####[facility] [address] [place], [address] Neutrophils/100 WBC (Bld) 76.6 % High 47-70 [facility] Comment on above: Performed By: #### L 100.0100 ####[facility] [address] [place], [address] Nucleated RBC (Bld) [#/Vol] 0 10*3/uL Normal 0-5 [facility] Comment on above: Performed By: #### L 100.0100 ####[facility] [address] [place], [address] Platelet mean volume (Bld) [Entitic vol] 9.1 fL Normal 6.2-12.0 [facility] Comment on above: Performed By: #### L 100.0100 ####[facility] [address] [place], [address] Platelets (Bld) [#/Vol] 265 10*3/uL Normal 150-450 [facility] Comment on above: Performed By: #### L 100.0100 ####[facility] [address] [place], [address] RBC (Bld) [#/Vol] 3.20 10*6/uL Low 4.6-6.2 [facility] Comment on above: Performed By: #### L 100.0100 ####[facility] [address] [place], [address] RDW SD 58.9 fl High 35.1-43.9 [facility] Comment on above: Performed By: #### L 100.0100 ####[facility] [address] [place], [address] WBC (Bld) [#/Vol] 7.2 10*3/uL Normal 4.4-11.0 [facility] Comment on above: Performed By: #### L 100.0100 ####[facility] [address] [place], [address] Absolute Lymph 1.94 X10 3/uL Normal 0.83-4.51 [facility] Comment on above: Performed By: #### L 503.6620, L300.3900, L100.0100, L501.5425, L500.2500 ####[facility] [address] [place], [address] Absolute Neut 10.2 X10 3/uL High 2.0-7.7 [facility] Comment on above: Performed By: #### L 503.6620, L300.3900, L100.0100, L501.5425, L500.2500 ####[facility] [address] [place], [address] Basophils/100 WBC (Bld) 0.2 % Normal 0-1 [facility] Comment on above: Performed By: #### L 503.6620, L300.3900, L100.0100, L501.5425, L500.2500 ####[facility] [address] [place], [address] Eosinophils/100 WBC (Bld) 1.6 % Normal 0-5 [facility] Comment on above: Performed By: #### L 503.6620, L300.3900, L100.0100, L501.5425, L500.2500 ####[facility] [address] [place], [address] Erythrocyte distribution width (RBC) [Ratio] 18.9 % High 11.6-14.6 [facility] Comment on above: Performed By: #### L 503.6620, L300.3900, L100.0100, L501.5425, L500.2500 ####[facility] [address] [place], [address] Hematocrit (Bld) [Volume fraction] 35.8 % Low 40-54 [facility] Comment on above: Performed By: #### L 503.6620, L300.3900, L100.0100, L501.5425, L500.2500 ####[facility] [address] [place], [address] Hemoglobin (Bld) [Mass/Vol] 11.1 g/dL Low 13.0-16.5 [facility] Comment on above: Performed By: #### L 503.6620, L300.3900, L100.0100, L501.5425, L500.2500 ####[facility] [address] [place], [address] IG% 0.600 Normal 0.0-0.9 [facility] Comment on above: Result Comment: IG% - Immature Granulocytes (promyelocytes, myelocytes andmetamyelocytes) > 1% indicates that a LEFT SHIFT is Present. Performed By: #### L 503.6620, L300.3900, L100.0100, L501.5425, L500.2500 ####[facility] [address] [place], [address] Lymphocytes/100 WBC (Bld) 14.5 % Low 19-41 [facility] Comment on above: Performed By: #### L 503.6620, L300.3900, L100.0100, L501.5425, L500.2500 ####[facility] [address] [place], [address] MCH (RBC) [Entitic mass] 26.5 pg Low 27.0-32.0 [facility] Comment on above: Performed By: #### L 503.6620, L300.3900, L100.0100, L501.5425, L500.2500 ####[facility] [address] [place], [address] MCHC (RBC) [Mass/Vol] 31.0 g/dL Low 32-36 [facility] Comment on above: Performed By: #### L 503.6620, L300.3900, L100.0100, L501.5425, L500.2500 ####[facility] [address] [place], [address] MCV (RBC) [Entitic vol] 85.4 fL Normal 80-94 [facility] Comment on above: Performed By: #### L 503.6620, L300.3900, L100.0100, L501.5425, L500.2500 ####[facility] [address] [place], [address] Monocytes/100 WBC (Bld) 6.7 % Normal 0-10 [facility] Comment on above: Performed By: #### L 503.6620, L300.3900, L100.0100, L501.5425, L500.2500 ####[facility] [address] [place], [address] Neutrophils/100 WBC (Bld) 76.4 % High 47-70 [facility] Comment on above: Performed By: #### L 503.6620, L300.3900, L100.0100, L501.5425, L500.2500 ####[facility] [address] [place], [address] Nucleated RBC (Bld) [#/Vol] 0 10*3/uL Normal 0-5 [facility] Comment on above: Performed By: #### L 503.6620, L300.3900, L100.0100, L501.5425, L500.2500 ####[facility] [address] [place], [address] Platelet mean volume (Bld) [Entitic vol] 9.8 fL Normal 6.2-12.0 [facility] Comment on above: Performed By: #### L 503.6620, L300.3900, L100.0100, L501.5425, L500.2500 ####[facility] [address] [place], [address] Platelets (Bld) [#/Vol] 372 10*3/uL Normal 150-450 [facility] Comment on above: Performed By: #### L 503.6620, L300.3900, L100.0100, L501.5425, L500.2500 ####[facility] [address] [place], [address] RBC (Bld) [#/Vol] 4.19 10*6/uL Low 4.6-6.2 [facility] Comment on above: Performed By: #### L 503.6620, L300.3900, L100.0100, L501.5425, L500.2500 ####[facility] [address] [place], [address] RDW SD 57.8 fl High 35.1-43.9 [facility] Comment on above: Performed By: #### L 503.6620, L300.3900, L100.0100, L501.5425, L500.2500 ####[facility] [address] [place], [address] WBC (Bld) [#/Vol] 13.4 10*3/uL High 4.4-11.0 [facility] Comment on above: Performed By: #### L 503.6620, L300.3900, L100.0100, L501.5425, L500.2500 ####[facility] [address] [place], [address] Absolute Lymph 1.50 X10 3/uL Normal 0.83-4.51 [facility] Comment on above: Performed By: #### L 300.4310, L100.0100, L300.3900 ####[facility] [address] [place], [address] Absolute Neut 4.2 X10 3/uL Normal 2.0-7.7 [facility] Comment on above: Performed By: #### L 300.4310, L100.0100, L300.3900 ####[facility] [address] [place], [address] Basophils/100 WBC (Bld) 0.4 % Normal 0-1 [facility] Comment on above: Performed By: #### L 300.4310, L100.0100, L300.3900 ####[facility] [address] [place], [address] Eosinophils/100 WBC (Bld) 4.9 % Normal 0-5 [facility] Comment on above: Performed By: #### L 300.4310, L100.0100, L300.3900 ####[facility] [address] [place], [address] Erythrocyte distribution width (RBC) [Ratio] 18.9 % High 11.6-14.6 [facility] Comment on above: Performed By: #### L 300.4310, L100.0100, L300.3900 ####[facility] [address] [place], [address] Hematocrit (Bld) [Volume fraction] 36.2 % Low 40-54 [facility] Comment on above: Performed By: #### L 300.4310, L100.0100, L300.3900 ####[facility] [address], [address] Hemoglobin (Bld) [Mass/Vol] 11.4 g/dL Low 13.0-16.5 [facility] Comment on above: Performed By: #### L 300.4310, L100.0100, L300.3900 ####[facility] [address] [place], [address] IG% 0.400 Normal 0.0-0.9 [facility] Comment on above: Result Comment: IG% - Immature Granulocytes (promyelocytes, myelocytes andmetamyelocytes) > 1% indicates that a LEFT SHIFT is Present. Performed By: #### L 300.4310, L100.0100, L300.3900 ####[facility] [address] [place], [address] Lymphocytes/100 WBC (Bld) 21.6 % Normal 19-41 [facility] Comment on above: Performed By: #### L 300.4310, L100.0100, L300.3900 ####[facility] [address] [place], [address] MCH (RBC) [Entitic mass] 26.8 pg Low 27.0-32.0 [facility] Comment on above: Performed By: #### L 300.4310, L100.0100, L300.3900 ####[facility] [address] [place], [address] MCHC (RBC) [Mass/Vol] 31.5 g/dL Low 32-36 [facility] Comment on above: Performed By: #### L 300.4310, L100.0100, L300.3900 ####[facility] [address] [place], [address] MCV (RBC) [Entitic vol] 85.2 fL Normal 80-94 [facility] Comment on above: Performed By: #### L 300.4310, L100.0100, L300.3900 ####[facility] [address] [place], [address] Monocytes/100 WBC (Bld) 11.8 % High 0-10 [facility] Comment on above: Performed By: #### L 300.4310, L100.0100, L300.3900 ####[facility] [address], [address] Neutrophils/100 WBC (Bld) 60.9 % Normal 47-70 [facility] Comment on above: Performed By: #### L 300.4310, L100.0100, L300.3900 ####[facility] [address] [place], [address] Nucleated RBC (Bld) [#/Vol] 0 10*3/uL Normal 0-5 [facility] Comment on above: Performed By: #### L 300.4310, L100.0100, L300.3900 ####[facility] [address] [place], [address] Platelet mean volume (Bld) [Entitic vol] 9.5 fL Normal 6.2-12.0 [facility] Comment on above: Performed By: #### L 300.4310, L100.0100, L300.3900 ####[facility] [address] [place], [address] Platelets (Bld) [#/Vol] 344 10*3/uL Normal 150-450 [facility] Comment on above: Performed By: #### L 300.4310, L100.0100, L300.3900 ####[facility] [address] [place], [address] RBC (Bld) [#/Vol] 4.25 10*6/uL Low 4.6-6.2 [facility] Comment on above: Performed By: #### L 300.4310, L100.0100, L300.3900 ####[facility] [address] [place], [address] RDW SD 57.6 fl High 35.1-43.9 [facility] Comment on above: Performed By: #### L 300.4310, L100.0100, L300.3900 ####[facility] [address] [place], [address] WBC (Bld) [#/Vol] 6.9 10*3/uL Normal 4.4-11.0 [facility] Comment on above: Performed By: #### L 300.4310, L100.0100, L300.3900 ####[facility] [address] [place], [address] CBC-Complete Blood Cnt No Di ffon 06-08-2024 Erythrocyte distribution width (RBC) [Ratio] 18.8 % High 11.6-14.6 [facility] Comment on above: Performed By: #### L 100.0500 ####[facility] [address] [place], [address] Hematocrit (Bld) [Volume fraction] 30.7 % Low 40-54 [facility] Comment on above: Performed By: #### L 100.0500 ####[facility] [address] [place], [address] Hemoglobin (Bld) [Mass/Vol] 9.8 g/dL Low 13.0-16.5 [facility] Comment on above: Performed By: #### L 100.0500 ####[facility] [address] [place], [address] MCH (RBC) [Entitic mass] 27.1 pg Normal 27.0-32.0 [facility] Comment on above: Performed By: #### L 100.0500 ####[facility] [address] [place], [address] MCHC (RBC) [Mass/Vol] 31.9 g/dL Low 32-36 [facility] Comment on above: Performed By: #### L 100.0500 ####[facility] [address] [place], [address] MCV (RBC) [Entitic vol] 84.8 fL Normal 80-94 [facility] Comment on above: Performed By: #### L 100.0500 ####[facility] [address] [place], [address] Platelet mean volume (Bld) [Entitic vol] 9.1 fL Normal 6.2-12.0 [facility] Comment on above: Performed By: #### L 100.0500 ####[facility] [address] [place], [address] Platelets (Bld) [#/Vol] 284 10*3/uL Normal 150-450 [facility] Comment on above: Performed By: #### L 100.0500 ####[facility] [address] [place], [address] RBC (Bld) [#/Vol] 3.62 10*6/uL Low 4.6-6.2 [facility] Comment on above: Performed By: #### L 100.0500 ####[facility] [address] [place], [address] RDW SD 57.6 fl High 35.1-43.9 [facility] Comment on above: Performed By: #### L 100.0500 ####[facility] [address] [place], [address] WBC (Bld) [#/Vol] 9.9 10*3/uL Normal 4.4-11.0 [facility] Comment on above: Performed By: #### L 100.0500 ####[facility] [address] [place], [address] CTA Chst, Abd, Pel W and/or WOon 06-08-2024 CTA Chst, Abd, Pel W and/or WO Normal [facility] Chest 1 View (Portable)on Chest 1 View (Portable) Normal [facility] Emergency Department Summary on 06-08-2024 Emergency Department Summary Normal [facility] H AND P Exam - Hospitaliston 06-08-2024 H&P Exam - Hospitalist Normal [facility] L501.4020on 06-08-2024 TROPONIN-I HS 96 pg/mL High 3.0-78.0 [facility] Comment on above: Result Comment: Plea se Note: New Test Units and Gender Specific Reference Ranges. For more information see Policy Stat Procedure Kamas High Sensitivity Troponin (TNIH) and attachments. Performed By: #### L 501.4020 ####[facility] [address] [place], [address] L501.5425on 06-08-2024 TROPONIN-I HS 97 pg/mL High 3.0-78.0 [facility] Comment on above: Order Comment: 1Y Result Comment: Plea se Note: New Test Units and Gender Specific Reference Ranges. For more information see Policy Stat Procedure Kamas High Sensitivity Troponin (TNIH) and attachments. Performed By: #### L 503.6620, L300.3900, L100.0100, L501.5425, L500.2500 ####[facility] [address] [place], [address] Lipaseon 06-08-2024 Lipase [Catalytic activity/Vol] 26 U/L Normal 13-75 [facility] Comment on above: Result Comment: Plea se note:LIPASE revised reference range effective 22.New Lipase methodology. Expected to produce lower valuesthan the previous assay method.NEW Reference Range: 13 - 75 U/L Performed By: #### L 500.3400, L501.2450 ####[facility] [address] [place], [address] Liver Profileon 06-08-2024 Albumin [Mass/Vol] 3.6 g/dL Normal 3.2-5.0 [facility] Comment on above: Performed By: #### L 500.3400, L501.2450 ####[facility] [address] [place], [address] ALK P 103 U/L Normal 45-117 [facility] Comment on above: Performed By: #### L 500.3400, L501.2450 ####[facility] [address] [place], [address] ALT [Catalytic activity/Vol] 20 U/L Normal 16-61 [facility] Comment on above: Performed By: #### L 500.3400, L5.2450 ####[facility] [address] [place], [address] AST [Catalytic activity/Vol] 23 U/L Normal 15-37 [facility] Comment on above: Performed By: #### L 500.3400, L5.2450 ####[facility] [address] [place], [address] Bilirubin [Mass/Vol] 0.60 mg/dL Normal 0.20-1.00 [facility] Comment on above: Result Comment: For patients on eltrombopag therapy, use of Dimension Kamas TBIL is not recommended. Performed By: #### L 500.3400, L501.2450 ####[facility] [address] [place], [address] Bilirubin.direct [Mass/Vol] 0.18 mg/dL Normal 0.00-0.30 [facility] Comment on above: Performed By: #### L 500.3400, L501.2450 ####[facility] [address] [place], [address] Globulin (S) [Mass/Vol] 3.5 g/dL Normal 2.2-4.2 [facility] Comment on above: Performed By: #### L 500.3400, L501.2450 ####[facility] [address] [place], [address] T PROT 7.1 g/dL Normal 6.4-8.2 [facility] Comment on above: Performed By: #### L 500.3400, L501.2450 ####[facility] [address] [place], [address] Partial Thromboplast Timeon 06-08-2024 aPTT Coag (Bld) [Time] 32.9 s Normal 24.1-36.2 [facility] Comment on above: Performed By: #### L 300.4310, L100.0100, L300.3900 ####[facility] [address] [place], [address] Prothrombin Time w/INRon INR Coag (PPP) [Relative time] 1.1 {INR} Normal [facility] Comment on above: Performed By: #### L 503.6620, L300.3900, L100.0100, L501.5425, L500.2500 ####[facility] [address] [place], [address] PT Coag (PPP) [Time] 14.3 s Normal 11.7-14.9 [facility] Comment on above: Performed By: #### L 503.6620, L300.3900, L100.0100, L501.5425, L500.2500 ####[facility] [address] [place], [address] INR Coag (PPP) [Relative time] 1.1 {INR} Normal [facility] Comment on above: Performed By: #### L 300.4310, L100.0100, L300.3900 ####[facility] [address] [place], [address] PT Coag (PPP) [Time] 13.9 s Normal 11.7-14.9 [facility] Comment on above: Performed By: #### L 300.4310, L100.0100, L300.3900 ####[facility] [address] [place], [address] Trichrome (control)on 2023 Trichrome (control) Normal [facility] Comment on above: Performed By: #### P TRI ####[facility] [address] [place], [address] 12 Lead EKGon 06-07-2024 12 Lead EKG Normal [facility] Basic Metabolic Profile (BMP )on 06-07-2024 BUN/CRE 18.3 RATIO Normal 10-20 [facility] Comment on above: Performed By: #### L 500.2500, L100.0100 ####[facility] [address] [place], [address] CA,Total 9.7 mg/dL Normal 8.5-10.1 [facility] Comment on above: Performed By: #### L 500.2500, L100.0100 ####[facility] [address] [place], [address] Chloride [Moles/Vol] 103 mmol/L Normal 98-107 [facility] Comment on above: Performed By: #### L 500.2500, L100.0100 ####[facility] [address] [place], [address] CO2 [Moles/Vol] 26.0 mmol/L Normal 21.0-32.0 [facility] Comment on above: Performed By: #### L 500.2500, L100.0100 ####[facility] [address] [place], [address] Creatinine [Mass/Vol] 1.04 mg/dL Normal 0.70-1.30 [facility] Comment on above: Result Comment: The validity of the calculated GFR GFRAA in patients over70 years has not been determined. Clinical correlation isessential. Performed By: #### L 500.2500, L100.0100 ####[facility] [address] [place], [address] ECRCL 52.96 ml/min Normal [facility] Comment on above: Performed By: #### L 500.2500, L100.0100 ####[facility] [address] [place], [address] EST GFR - AA 88 mL/min Normal >60 [facility] Comment on above: Result Comment: Afri can Malagasy GFR Calc Performed By: #### L 500.2500, L100.0100 ####[facility] [address] [place], [address] GAP 7 Normal 5-15 [facility] Comment on above: Performed By: #### L 500.2500, L100.0100 ####[facility] [address] [place], [address] GFR/1.73 sq M.predicted among non-blacks MDRD (S/P/Bld) [Vol rate/Area] 73 mL/min/{1.73_m2} Normal >60 [facility] Comment on above: Result Comment: Non- GFR Calc Performed By: #### L 500.2500, L100.0100 ####[facility] [address] [place], [address] Glucose [Mass/Vol] 101 mg/dL Normal 74-106 [facility] Comment on above: Result Comment: Fast ing Glucose result from 100 to 125 mg/dLsuggests IMPAIRED HOMEOSTASIS per A.D.A. criteria. Performed By: #### L 500.2500, L100.0100 ####[facility] [address] [place], [address] Potassium [Moles/Vol] 4.1 mmol/L Normal 3.5-5.1 [facility] Comment on above: Performed By: #### L 500.2500, L100.0100 ####[facility] [address] [place], [address] Sodium [Moles/Vol] 136 mmol/L Normal 136-145 [facility] Comment on above: Performed By: #### L 500.2500, L100.0100 ####[facility] [address] [place], [address] Urea nitrogen [Mass/Vol] 19 mg/dL High 7-18 [facility] Comment on above: Performed By: #### L 500.2500, L100.0100 ####[facility] [address] [place], [address] CBC W/Diff, Automatedon 11-0 7-2023 Absolute Lymph 1.13 X10 3/uL Normal 0.83-4.51 [facility] Comment on above: Performed By: #### L 500.2500, L100.0100 ####[facility] [address] [place], [address] Absolute Neut 3.7 X10 3/uL Normal 2.0-7.7 [facility] Comment on above: Performed By: #### L 500.2500, L100.0100 ####[facility] [address] [place], [address] Basophils/100 WBC (Bld) 0.4 % Normal 0-1 [facility] Comment on above: Performed By: #### L 500.2500, L100.0100 ####[facility] [address] [place], [address] Eosinophils/100 WBC (Bld) 4.1 % Normal 0-5 [facility] Comment on above: Performed By: #### L 500.2500, L100.0100 ####[facility] [address] [place], [address] Erythrocyte distribution width (RBC) [Ratio] 18.9 % High 11.6-14.6 [facility] Comment on above: Performed By: #### L 500.2500, L100.0100 ####[facility] [address] [place], [address] Hematocrit (Bld) [Volume fraction] 35.0 % Low 40-54 [facility] Comment on above: Performed By: #### L 500.2500, L100.0100 ####[facility] [address] [place], [address] Hemoglobin (Bld) [Mass/Vol] 11.1 g/dL Low 13.0-16.5 [facility] Comment on above: Performed By: #### L 500.2500, L100.0100 ####[facility] [address] [place], [address] IG% 0.400 Normal 0.0-0.9 [facility] Comment on above: Result Comment: IG% - Immature Granulocytes (promyelocytes, myelocytes andmetamyelocytes) > 1% indicates that a LEFT SHIFT is Present. Performed By: #### L 500.2500, L100.0100 ####[facility] [address] [place], [address] Lymphocytes/100 WBC (Bld) 20.0 % Normal 19-41 [facility] Comment on above: Performed By: #### L 500.2500, L100.0100 ####[facility] [address] [place], [address] MCH (RBC) [Entitic mass] 27.1 pg Normal 27.0-32.0 [facility] Comment on above: Performed By: #### L 500.2500, L100.0100 ####[facility] [address] [place], [address] MCHC (RBC) [Mass/Vol] 31.7 g/dL Low 32-36 [facility] Comment on above: Performed By: #### L 500.2500, L100.0100 ####[facility] [address] [place], [address] MCV (RBC) [Entitic vol] 85.4 fL Normal 80-94 [facility] Comment on above: Performed By: #### L 500.2500, L100.0100 ####[facility] [address] [place], [address] Monocytes/100 WBC (Bld) 10.4 % High 0-10 [facility] Comment on above: Performed By: #### L 500.2500, L100.0100 ####[facility] [address] [place], [address] Neutrophils/100 WBC (Bld) 64.7 % Normal 47-70 [facility] Comment on above: Performed By: #### L 500.2500, L100.0100 ####[facility] [address] [place], [address] Nucleated RBC (Bld) [#/Vol] 0 10*3/uL Normal 0-5 [facility] Comment on above: Performed By: #### L 500.2500, L100.0100 ####[facility] [address] [place], [address] Platelet mean volume (Bld) [Entitic vol] 9.5 fL Normal 6.2-12.0 [facility] Comment on above: Performed By: #### L 500.2500, L100.0100 ####[facility] [address] [place], [address] Platelets (Bld) [#/Vol] 301 10*3/uL Normal 150-450 [facility] Comment on above: Performed By: #### L 500.2500, L100.0100 ####[facility] [address] [place], [address] RBC (Bld) [#/Vol] 4.10 10*6/uL Low 4.6-6.2 [facility] Comment on above: Performed By: #### L 500.2500, L100.0100 ####[facility] [address] [place], [address] RDW SD 57.8 fl High 35.1-43.9 [facility] Comment on above: Performed By: #### L 500.2500, L100.0100 ####[facility] [address] [place], [address] WBC (Bld) [#/Vol] 5.7 10*3/uL Normal 4.4-11.0 [facility] Comment on above: Performed By: #### L 500.2500, L100.0100 ####[facility] [address] [place], [address] Emergency Department Summary on 06-07-2024 Emergency Department Summary Normal [facility] Surgery Visit Reporton 06-07 Surgery Visit Report Normal [facility] Oncology Visit Reporton 05-03 Oncology Visit Report Normal [facility] PET/CT Tumor Base -Thigh Ini ton 05-29-2024 PET/CT Tumor Base -Thigh Init Normal [facility] Carcinoembryonic Antigenon 1 CEA 2.2 ng/mL Normal 0.0-4.7 [facility] Comment on above: Order Comment: Speci men Comment: A duplicate report has been generateddue to demographicSpecimen Comment: updates. Result Comment: Nons mokers <3.9 Smokers <5.6[employer] Electrochemiluminescence Immunoassay(ECLIA)Values obtained with different assay methods or kitscannot be used interchangeably. Results cannot beinterpreted as absolute evidence of the presence orabsence of malignant disease.Performed at: [facility] [employer] [id number] Director: Jian Paredes PhD, Phone: [phone] Performed By: #### L 3100.2300, L503.6550 ####[facility] [address] [place], [address] C-reactive protein measureme nt by high sensitivity methodOrdered By: Papi Hernandez on 05-16-2024 C-Reactive Protein Extended Range 5.71 mg/L High 0.0-3.0 [facility] Comment on above: C-Reactive Protein ( CRP) provides useful information for thediagnosis, therapy and monitoring of inflammatory processesand associated diseases. For the evaluation of Relative Riskfor Cardiovascular Disease, a High Sensitivity CRP (HSCRP)should be ordered. C-reactive protein measurement by high sensitivity method 5.71 mg/L High 0.0-3.0 [facility] Comment on above: C-Reactive Protein ( CRP) provides useful information for thediagnosis, therapy and monitoring of inflammatory processesand associated diseases. For the evaluation of Relative Riskfor Cardiovascular Disease, a High Sensitivity CRP (HSCRP)should be ordered. CBC W/Diff, Automatedon 05-01 Absolute Lymph 1.28 X10 3/uL Normal 0.83-4.51 [facility] Comment on above: Performed By: #### L 101.9900, L100.9950, L503.6030, L501.6710, L100.0100, L500.4050, L900.0098 ####[facility] [address] [place], [address] Absolute Neut 3.8 X10 3/uL Normal 2.0-7.7 [facility] Comment on above: Performed By: #### L 101.9900, L100.9950, L503.6030, L501.6710, L100.0100, L500.4050, L900.0098 ####[facility] [address] [place], [address] Basophils/100 WBC (Bld) 0.3 % Normal 0-1 [facility] Comment on above: Performed By: #### L 101.9900, L100.9950, L503.6030, L501.6710, L100.0100, L500.4050, L900.0098 ####[facility] [address] [place], [address] Eosinophils/100 WBC (Bld) 2.6 % Normal 0-5 [facility] Comment on above: Performed By: #### L 101.9900, L100.9950, L503.6030, L501.6710, L100.0100, L500.4050, L900.0098 ####[facility] [address] [place], [address] Erythrocyte distribution width (RBC) [Ratio] 14.2 % Normal 11.6-14.6 [facility] Comment on above: Performed By: #### L 101.9900, L100.9950, L503.6030, L501.6710, L100.0100, L500.4050, L900.0098 ####[facility] [address] [place], [address] Hematocrit (Bld) [Volume fraction] 30.5 % Low 40-54 [facility] Comment on above: Performed By: #### L 101.9900, L100.9950, L503.6030, L501.6710, L100.0100, L500.4050, L900.0098 ####[facility] [address] [place], [address] Hemoglobin (Bld) [Mass/Vol] 9.6 g/dL Low 13.0-16.5 [facility] Comment on above: Performed By: #### L 101.9900, L100.9950, L503.6030, L501.6710, L100.0100, L500.4050, L900.0098 ####[facility] [address] [place], [address] IG% 0.300 Normal 0.0-0.9 [facility] Comment on above: Result Comment: IG% - Immature Granulocytes (promyelocytes, myelocytes andmetamyelocytes) > 1% indicates that a LEFT SHIFT is Present. Performed By: #### L 101.9900, L100.9950, L503.6030, L501.6710, L100.0100, L500.4050, L900.0098 ####[facility] [address] [place], [address] Lymphocytes/100 WBC (Bld) 21.9 % Normal 19-41 [facility] Comment on above: Performed By: #### L 101.9900, L100.9950, L503.6030, L501.6710, L100.0100, L500.4050, L900.0098 ####[facility] [address] [place], [address] MCH (RBC) [Entitic mass] 25.9 pg Low 27.0-32.0 [facility] Comment on above: Performed By: #### L 101.9900, L100.9950, L503.6030, L501.6710, L100.0100, L500.4050, L900.0098 ####[facility] [address] [place], [address] MCHC (RBC) [Mass/Vol] 31.5 g/dL Low 32-36 [facility] Comment on above: Performed By: #### L 101.9900, L100.9950, L503.6030, L501.6710, L100.0100, L500.4050, L900.0098 ####[facility] [address] [place], [address] MCV (RBC) [Entitic vol] 82.2 fL Normal 80-94 [facility] Comment on above: Performed By: #### L 101.9900, L100.9950, L503.6030, L501.6710, L100.0100, L500.4050, L900.0098 ####[facility] [address] [place], [address] Monocytes/100 WBC (Bld) 9.6 % Normal 0-10 [facility] Comment on above: Performed By: #### L 101.9900, L100.9950, L503.6030, L501.6710, L100.0100, L500.4050, L900.0098 ####[facility] [address] [place], [address] Neutrophils/100 WBC (Bld) 65.3 % Normal 47-70 [facility] Comment on above: Performed By: #### L 101.9900, L100.9950, L503.6030, L501.6710, L100.0100, L500.4050, L900.0098 ####[facility] [address] [place], [address] Nucleated RBC (Bld) [#/Vol] 0 10*3/uL Normal 0-5 [facility] Comment on above: Performed By: #### L 101.9900, L100.9950, L503.6030, L501.6710, L100.0100, L500.4050, L900.0098 ####[facility] [address] [place], [address] Platelet mean volume (Bld) [Entitic vol] 9.1 fL Normal 6.2-12.0 [facility] Comment on above: Performed By: #### L 101.9900, L100.9950, L503.6030, L501.6710, L100.0100, L500.4050, L900.0098 ####[facility] [address] [place], [address] Platelets (Bld) [#/Vol] 373 10*3/uL Normal 150-450 [facility] Comment on above: Performed By: #### L 101.9900, L100.9950, L503.6030, L501.6710, L100.0100, L500.4050, L900.0098 ####[facility] [address] [place], [address] RBC (Bld) [#/Vol] 3.71 10*6/uL Low 4.6-6.2 [facility] Comment on above: Performed By: #### L 101.9900, L100.9950, L503.6030, L501.6710, L100.0100, L500.4050, L900.0098 ####[facility] [address] [place], [address] RDW SD 42.2 fl Normal 35.1-43.9 [facility] Comment on above: Performed By: #### L 101.9900, L100.9950, L503.6030, L501.6710, L100.0100, L500.4050, L900.0098 ####[facility] [address] [place], [address] WBC (Bld) [#/Vol] 5.8 10*3/uL Normal 4.4-11.0 [facility] Comment on above: Performed By: #### L 101.9900, L100.9950, L503.6030, L501.6710, L100.0100, L500.4050, L900.0098 ####[facility] [address] [place], [address] CRPon 05-16-2024 C-REACTIVE PROT 5.71 mg/L High 0.0-3.0 [facility] Comment on above: Result Comment: C-Re active Protein (CRP) provides useful information for thediagnosis, therapy and monitoring of inflammatory processesand associated diseases. For the evaluation of Relative Riskfor Cardiovascular Disease, a High Sensitivity CRP (HSCRP)should be ordered. Performed By: #### L 101.9900, L100.9950, L503.6030, L501.6710, L100.0100, L500.4050, L900.0098 ####[facility] [address] [place], [address] Comprehensive Metabolic Prof deon 05-16-2024 Albumin [Mass/Vol] 3.9 g/dL Normal 3.2-5.0 [facility] Comment on above: Performed By: #### L 101.9900, L100.9950, L503.6030, L501.6710, L100.0100, L500.4050, L900.0098 ####[facility] [address] [place], [address] Albumin/Globulin [Mass ratio] 1.1 {ratio} Normal 0.9-2.4 [facility] Comment on above: Performed By: #### L 101.9900, L100.9950, L503.6030, L501.6710, L100.0100, L500.4050, L900.0098 ####[facility] [address] [place], [address] ALK P 101 U/L Normal 45-117 [facility] Comment on above: Performed By: #### L 101.9900, L100.9950, L503.6030, L501.6710, L100.0100, L500.4050, L900.0098 ####[facility] [address] [place], [address] ALT [Catalytic activity/Vol] 19 U/L Normal 16-61 [facility] Comment on above: Performed By: #### L 101.9900, L100.9950, L503.6030, L501.6710, L100.0100, L500.4050, L900.0098 ####[facility] [address] [place], [address] AST [Catalytic activity/Vol] 15 U/L Normal 15-37 [facility] Comment on above: Performed By: #### L 101.9900, L100.9950, L503.6030, L501.6710, L100.0100, L500.4050, L900.0098 ####[facility] [address] [place], [address] Bilirubin [Mass/Vol] 0.50 mg/dL Normal 0.20-1.00 [facility] Comment on above: Result Comment: For patients on eltrombopag therapy, use of Dimension Kamas TBIL is not recommended. Performed By: #### L 101.9900, L100.9950, L503.6030, L501.6710, L100.0100, L500.4050, L900.0098 ####[facility] [address] [place], [address] BUN/CRE 16.7 RATIO Normal 10-20 [facility] Comment on above: Performed By: #### L 101.9900, L100.9950, L503.6030, L501.6710, L100.0100, L500.4050, L900.0098 ####[facility] [address] [place], [address] CA,Total 9.6 mg/dL Normal 8.5-10.1 [facility] Comment on above: Performed By: #### L 101.9900, L100.9950, L503.6030, L501.6710, L100.0100, L500.4050, L900.0098 ####[facility] [address] [place], [address] Chloride [Moles/Vol] 105 mmol/L Normal 98-107 [facility] Comment on above: Performed By: #### L 101.9900, L100.9950, L503.6030, L501.6710, L100.0100, L500.4050, L900.0098 ####[facility] [address] [place], [place], [address] CO2 [Moles/Vol] 26.0 mmol/L Normal 21.0-32.0 [facility] Comment on above: Performed By: #### L 101.9900, L100.9950, L503.6030, L501.6710, L100.0100, L500.4050, L900.0098 ####[facility] [address] [place], [address](661) Creatinine [Mass/Vol] 1.14 mg/dL Normal 0.70-1.30 [facility] Comment on above: Result Comment: The validity of the calculated GFR GFRAA in patients over70 years has not been determined. Clinical correlation isessential. Performed By: #### L 101.9900, L100.9950, L503.6030, L501.6710, L100.0100, L500.4050, L900.0098 ####[facility] [address] [place], [address](775) EST GFR - AA 79 mL/min Normal >60 [facility] Comment on above: Result Comment: Afri can Malagasy GFR Calc Performed By: #### L 101.9900, L100.9950, L503.6030, L501.6710, L100.0100, L500.4050, L900.0098 ####[facility] [address] [place], [address] GAP 4 Low 5-15 [facility] Comment on above: Performed By: #### L 101.9900, L100.9950, L503.6030, L501.6710, L100.0100, L500.4050, L900.0098 ####[facility] [address] [place], [address](864) GFR/1.73 sq M.predicted among non-blacks MDRD (S/P/Bld) [Vol rate/Area] 66 mL/min/{1.73_m2} Normal >60 [facility] Comment on above: Result Comment: Non- GFR Calc Performed By: #### L 101.9900, L100.9950, L503.6030, L501.6710, L100.0100, L500.4050, L900.0098 ####[facility] [address] [place], [address] Globulin (S) [Mass/Vol] 3.7 g/dL Normal 2.2-4.2 [facility] Comment on above: Performed By: #### L 101.9900, L100.9950, L503.6030, L501.6710, L100.0100, L500.4050, L900.0098 ####[facility] [address] [place], [address] Glucose [Mass/Vol] 102 mg/dL Normal 74-106 [facility] Comment on above: Result Comment: Fast ing Glucose result from 100 to 125 mg/dLsuggests IMPAIRED HOMEOSTASIS per A.D.A. criteria. Performed By: #### L 101.9900, L100.9950, L503.6030, L501.6710, L100.0100, L500.4050, L900.0098 ####[facility] [address] [place], [address] Potassium [Moles/Vol] 4.4 mmol/L Normal 3.5-5.1 [facility] Comment on above: Performed By: #### L 101.9900, L100.9950, L503.6030, L501.6710, L100.0100, L500.4050, L900.0098 ####[facility] [address] [place], [address] Sodium [Moles/Vol] 135 mmol/L Low 136-145 [facility] Comment on above: Performed By: #### L 101.9900, L100.9950, L503.6030, L501.6710, L100.0100, L500.4050, L900.0098 ####[facility] [address] [place], [place], [id number] T PROT 7.6 g/dL Normal 6.4-8.2 [facility] Comment on above: Performed By: #### L 101.9900, L100.9950, L503.6030, L501.6710, L100.0100, L500.4050, L900.0098 ####[facility] [address] [place], [address] Urea nitrogen [Mass/Vol] 19 mg/dL High 7-18 [facility] Comment on above: Performed By: #### L 101.9900, L100.9950, L503.6030, L501.6710, L100.0100, L500.4050, L900.0098 ####[facility] [address] [place], [place], [address] Erythrocyte Sed Rateon 05-16 SED RATE 13 mm/hr Normal 0-20 [facility] Comment on above: Performed By: #### L 101.9900, L100.9950, L503.6030, L501.6710, L100.0100, L500.4050, L900.0098 ####[facility] [address] [place], [place], [id number] Erythrocyte sedimentation ra teOrdered By: Papi Hernandez on 05-16-2024 ESR (Bld) [Velocity] 13 mm/h 0-20 [facility] Ferritinon 05-16-2024 Ferritin [Mass/Vol] 31 ng/mL Normal 26-388 [facility] Comment on above: Performed By: #### L 3100.2300, L503.6550 ####[facility] [address] [place], [place], [id number] Ferritin measurementOrdered By: Papi Hernandez on 05-16-2024 Ferritin [Mass/Vol] 31 ng/mL 26-388 [facility] Hemoglobin (Reticulocytes) [ Entitic mass]Ordered By: Papi Hernandez on 05-16-2024 Reticulocyte Hemoglobin Equivalent 27.6 pg Low 30-35 [facility] Immature reticulocyte fracti onOrdered By: Papi Hernandez on 05-16-2024 Immature Reticulocyte Fraction 16.60 % High 3.00-15.90 [facility] Iron (Unsp spec) [Mass/Mass] Ordered By: Papi Hernandez on 05-16-2024 Iron [Mass/Vol] 29 ug/dL Low 65-175 [facility] Iron measurement (mass/mass) Ordered By: Papi Hernandez on 05-16-2024 Iron (Unsp spec) [Mass/Mass] 29 ug/dL Low 65-175 [facility] Iron saturation [Mass fracti on]Ordered By: Papi Hernandez on 05-16-2024 Iron Saturation 7.2 % Low 15.0-55.0 [facility] Iron+Iron Binding Capacityon 05-16-2024 Iron [Mass/Vol] 29 ug/dL Low 65-175 [facility] Comment on above: Performed By: #### L 101.9900, L100.9950, L503.6030, L501.6710, L100.0100, L500.4050, L900.0098 ####[facility] [address] [place], [place], [phone] IRON SATURATION 7.2 Low 15.0-55.0 [facility] Comment on above: Performed By: #### L 101.9900, L100.9950, L503.6030, L501.6710, L100.0100, L500.4050, L900.0098 ####[facility] [address] [place], [address] TIBC 401 ug/dL Normal 250-450 [facility] Comment on above: Performed By: #### L 101.9900, L100.9950, L503.6030, L501.6710, L100.0100, L500.4050, L900.0098 ####[facility] [address] [place], [address] NATERAon 05-16-2024 NATURA SEE SCANNED REPORT Normal [facility] Comment on above: Performed By: #### L 101.9900, L100.9950, L503.6030, L501.6710, L100.0100, L500.4050, L900.0098 ####[facility] [address] [place], [address] Oncology Visit Reporton 05-01 Oncology Visit Report Normal [facility] Retic Panelon 05-16-2024 IM RET FRACTION 16.60 High 3.00-15.90 [facility] Comment on above: Performed By: #### L 101.9900, L100.9950, L503.6030, L501.6710, L100.0100, L500.4050, L900.0098 ####[facility] [address] [place], [address] RET-HE 27.6 pg Low 30-35 [facility] Comment on above: Performed By: #### L 101.9900, L100.9950, L503.6030, L501.6710, L100.0100, L500.4050, L900.0098 ####[facility] [address] [place], [address] Retic Count 1.19 Normal 0.5-1.5 [facility] Comment on above: Performed By: #### L 101.9900, L100.9950, L503.6030, L501.6710, L100.0100, L500.4050, L900.0098 ####[facility] [address] [place], [address] Reticulocyte hemoglobin equi valent (RET-He) measurementOrdered By: Papi Hernandez on 05-16-2024 Hemoglobin (Reticulocytes) [Entitic mass] 27.6 pg Low 30-35 [facility] Reticulocytes Auto (Bld) [#/ Vol]Ordered By: Papi Hernandez on 05-16-2024 Reticulocyte Count 1.19 % 0.5-1.5 [facility] Reticulocytes/100 RBC (Bld) 1.19 % 0.5-1.5 [facility] Serum or plasma iron saturat ion measurement (mass fraction)Ordered By: Papi Hernandez on 05-16-2024 Iron saturation [Mass fraction] 7.2 % Low 15.0-55.0 [facility] TIBCOrdered By: Papi Hernandez on 05-16-2024 Total Iron Binding Capacity 401 ug/dL 250-450 [facility] Surgery Visit Reporton 05-10 Surgery Visit Report Normal [facility] Basic Metabolic Profile (BMP )on 05-07-2024 BUN/CRE 13.7 RATIO Normal 10-20 [facility] Comment on above: Performed By: #### L 100.0100, L500.2500 ####[facility] [address] [place], [address] CA,Total 9.5 mg/dL Normal 8.5-10.1 [facility] Comment on above: Performed By: #### L 100.0100, L500.2500 ####[facility] [address] [place], [address] Chloride [Moles/Vol] 103 mmol/L Normal 98-107 [facility] Comment on above: Performed By: #### L 100.0100, L500.2500 ####[facility] [address] [place], [address] CO2 [Moles/Vol] 25.0 mmol/L Normal 21.0-32.0 [facility] Comment on above: Performed By: #### L 100.0100, L500.2500 ####[facility] [address] [place], [address] Creatinine [Mass/Vol] 1.17 mg/dL Normal 0.70-1.30 [facility] Comment on above: Result Comment: The validity of the calculated GFR GFRAA in patients over70 years has not been determined. Clinical correlation isessential. Performed By: #### L 100.0100, L500.2500 ####[facility] [address] [place], [address] EST GFR - AA 77 mL/min Normal >60 [facility] Comment on above: Result Comment: Afri can Malagasy GFR Calc Performed By: #### L 100.0100, L500.2500 ####[facility] [address] [place], [address] GAP 7 Normal 5-15 [facility] Comment on above: Performed By: #### L 100.0100, L500.2500 ####[facility] [address] [place], [address] GFR/1.73 sq M.predicted among non-blacks MDRD (S/P/Bld) [Vol rate/Area] 64 mL/min/{1.73_m2} Normal >60 [facility] Comment on above: Result Comment: Non- GFR Calc Performed By: #### L 100.0100, L500.2500 ####[facility] [address] [place], [address] Glucose [Mass/Vol] 112 mg/dL High 74-106 [facility] Comment on above: Result Comment: Fast ing Glucose result from 100 to 125 mg/dLsuggests IMPAIRED HOMEOSTASIS per A.D.A. criteria. Performed By: #### L 100.0100, L500.2500 ####[facility] [address] [place], [address] Potassium [Moles/Vol] 4.6 mmol/L Normal 3.5-5.1 [facility] Comment on above: Performed By: #### L 100.0100, L500.2500 ####[facility] [address] [place], [address] Sodium [Moles/Vol] 135 mmol/L Low 136-145 [facility] Comment on above: Performed By: #### L 100.0100, L500.2500 ####[facility] [address] [place], [address] Urea nitrogen [Mass/Vol] 16 mg/dL Normal 7-18 [facility] Comment on above: Performed By: #### L 100.0100, L500.2500 ####[facility] [address] [place], [address] CBC W/Diff, Automatedon 10-0 7-2023 Absolute Lymph 1.28 X10 3/uL Normal 0.83-4.51 [facility] Comment on above: Performed By: #### L 100.0100, L500.2500 ####[facility] [address] [place], [address] Absolute Neut 3.6 X10 3/uL Normal 2.0-7.7 [facility] Comment on above: Performed By: #### L 100.0100, L500.2500 ####[facility] [address] [place], [address] Basophils/100 WBC (Bld) 0.4 % Normal 0-1 [facility] Comment on above: Performed By: #### L 100.0100, L500.2500 ####[facility] [address] [place], [address] Eosinophils/100 WBC (Bld) 1.8 % Normal 0-5 [facility] Comment on above: Performed By: #### L 100.0100, L500.2500 ####[facility] [address] [place], [address] Erythrocyte distribution width (RBC) [Ratio] 14.3 % Normal 11.6-14.6 [facility] Comment on above: Performed By: #### L 100.0100, L500.2500 ####[facility] [address] [place], [address] Hematocrit (Bld) [Volume fraction] 29.4 % Low 40-54 [facility] Comment on above: Performed By: #### L 100.0100, L500.2500 ####[facility] [address] [place], [address] Hemoglobin (Bld) [Mass/Vol] 8.8 g/dL Low 13.0-16.5 [facility] Comment on above: Performed By: #### L 100.0100, L500.2500 ####[facility] [address] [place], [address] IG% 0.500 Normal 0.0-0.9 [facility] Comment on above: Result Comment: IG% - Immature Granulocytes (promyelocytes, myelocytes andmetamyelocytes) > 1% indicates that a LEFT SHIFT is Present. Performed By: #### L 100.0100, L500.2500 ####[facility] [address] [place], [address] Lymphocytes/100 WBC (Bld) 23.0 % Normal 19-41 [facility] Comment on above: Performed By: #### L 100.0100, L500.2500 ####[facility] [address] [place], [address] MCH (RBC) [Entitic mass] 25.4 pg Low 27.0-32.0 [facility] Comment on above: Performed By: #### L 100.0100, L500.2500 ####[facility] [address] [place], [address] MCHC (RBC) [Mass/Vol] 29.9 g/dL Low 32-36 [facility] Comment on above: Performed By: #### L 100.0100, L500.2500 ####[facility] [address] [place], [address] MCV (RBC) [Entitic vol] 85.0 fL Normal 80-94 [facility] Comment on above: Performed By: #### L 100.0100, L500.2500 ####[facility] [address] [place], [address] Monocytes/100 WBC (Bld) 10.4 % High 0-10 [facility] Comment on above: Performed By: #### L 100.0100, L500.2500 ####[facility] [address] [place], [address] Neutrophils/100 WBC (Bld) 63.9 % Normal 47-70 [facility] Comment on above: Performed By: #### L 100.0100, L500.2500 ####[facility] [address] [place], [address] Nucleated RBC (Bld) [#/Vol] 0 10*3/uL Normal 0-5 [facility] Comment on above: Performed By: #### L 100.0100, L500.2500 ####[facility] [address] [place], [address] Platelet mean volume (Bld) [Entitic vol] 9.8 fL Normal 6.2-12.0 [facility] Comment on above: Performed By: #### L 100.0100, L500.2500 ####[facility] [address] [place], [address] Platelets (Bld) [#/Vol] 416 10*3/uL Normal 150-450 [facility] Comment on above: Performed By: #### L 100.0100, L500.2500 ####[facility] [address] [place], [address] RBC (Bld) [#/Vol] 3.46 10*6/uL Low 4.6-6.2 [facility] Comment on above: Performed By: #### L 100.0100, L500.2500 ####[facility] [address] [place], [address] RDW SD 44.5 fl High 35.1-43.9 [facility] Comment on above: Performed By: #### L 100.0100, L500.2500 ####[facility] [address] [place], [address] WBC (Bld) [#/Vol] 5.6 10*3/uL Normal 4.4-11.0 [facility] Comment on above: Performed By: #### L 100.0100, L500.2500 ####[facility] [address] [place], [address] Basic Metabolic Profile (BMP )on 05-01-2024 BUN/CRE 16.2 RATIO Normal 10-20 [facility] Comment on above: Performed By: #### L 100.0100, L500.2500 ####[facility] [address] [place], [address] CA,Total 9.3 mg/dL Normal 8.5-10.1 [facility] Comment on above: Performed By: #### L 100.0100, L500.2500 ####[facility] [address] [place], [address] Chloride [Moles/Vol] 96 mmol/L Low 98-107 [facility] Comment on above: Performed By: #### L 100.0100, L500.2500 ####[facility] [address] [place], [address] CO2 [Moles/Vol] 24.0 mmol/L Normal 21.0-32.0 [facility] Comment on above: Performed By: #### L 100.0100, L500.2500 ####[facility] [address] [place], [address] Creatinine [Mass/Vol] 1.30 mg/dL Normal 0.70-1.30 [facility] Comment on above: Result Comment: The validity of the calculated GFR GFRAA in patients over70 years has not been determined. Clinical correlation isessential. Performed By: #### L 100.0100, L500.2500 ####[facility] [address] [place], [address] ECRCL 42.37 ml/min Normal [facility] Comment on above: Performed By: #### L 100.0100, L500.2500 ####[facility] [address] [place], [address] EST GFR - AA 68 mL/min Normal >60 [facility] Comment on above: Result Comment: Afri can Malagasy GFR Calc Performed By: #### L 100.0100, L500.2500 ####[facility] [address] [place], [address] GAP 9 Normal 5-15 [facility] Comment on above: Performed By: #### L 100.0100, L500.2500 ####[facility] [address] [place], [address] GFR/1.73 sq M.predicted among non-blacks MDRD (S/P/Bld) [Vol rate/Area] 56 mL/min/{1.73_m2} Low >60 [facility] Comment on above: Result Comment: Non- GFR Calc Performed By: #### L 100.0100, L500.2500 ####[facility] [address] [place], [address] Glucose [Mass/Vol] 111 mg/dL High 74-106 [facility] Comment on above: Result Comment: Fast ing Glucose result from 100 to 125 mg/dLsuggests IMPAIRED HOMEOSTASIS per A.D.A. criteria. Performed By: #### L 100.0100, L500.2500 ####[facility] [address] [place], [address] Potassium [Moles/Vol] 4.2 mmol/L Normal 3.5-5.1 [facility] Comment on above: Performed By: #### L 100.0100, L500.2500 ####[facility] [address] [place], [address] Sodium [Moles/Vol] 128 mmol/L Low 136-145 [facility] Comment on above: Performed By: #### L 100.0100, L500.2500 ####[facility] [address] [place], [address] Urea nitrogen [Mass/Vol] 21 mg/dL High 7-18 [facility] Comment on above: Performed By: #### L 100.0100, L500.2500 ####[facility] [address] [place], [address] CBC W/Diff, Automatedon 10-0 -2023 Absolute Lymph 1.58 X10 3/uL Normal 0.83-4.51 [facility] Comment on above: Performed By: #### L 100.0100, L500.2500 ####[facility] [address] [place], [address] Absolute Neut 6.7 X10 3/uL Normal 2.0-7.7 [facility] Comment on above: Performed By: #### L 100.0100, L500.2500 ####[facility] [address] [place], [address] Basophils/100 WBC (Bld) 0.3 % Normal 0-1 [facility] Comment on above: Performed By: #### L 100.0100, L500.2500 ####[facility] [address] [place], [address] Eosinophils/100 WBC (Bld) 3.0 % Normal 0-5 [facility] Comment on above: Performed By: #### L 100.0100, L500.2500 ####[facility] [address] [place], [address] Erythrocyte distribution width (RBC) [Ratio] 14.2 % Normal 11.6-14.6 [facility] Comment on above: Performed By: #### L 100.0100, L500.2500 ####[facility] [address] [place], [address] Hematocrit (Bld) [Volume fraction] 30.5 % Low 40-54 [facility] Comment on above: Performed By: #### L 100.0100, L500.2500 ####[facility] [address] [place], [address] Hemoglobin (Bld) [Mass/Vol] 9.5 g/dL Low 13.0-16.5 [facility] Comment on above: Performed By: #### L 100.0100, L500.2500 ####[facility] [address] [place], [address] IG% 0.800 Normal 0.0-0.9 [facility] Comment on above: Result Comment: IG% - Immature Granulocytes (promyelocytes, myelocytes andmetamyelocytes) > 1% indicates that a LEFT SHIFT is Present. Performed By: #### L 100.0100, L500.2500 ####[facility] [address] [place], [address] Lymphocytes/100 WBC (Bld) 16.4 % Low 19-41 [facility] Comment on above: Performed By: #### L 100.0100, L500.2500 ####[facility] [address] [place], [address] MCH (RBC) [Entitic mass] 25.7 pg Low 27.0-32.0 [facility] Comment on above: Performed By: #### L 100.0100, L500.2500 ####[facility] [address] [place], [address] MCHC (RBC) [Mass/Vol] 31.1 g/dL Low 32-36 [facility] Comment on above: Performed By: #### L 100.0100, L500.2500 ####[facility] [address] [place], [address] MCV (RBC) [Entitic vol] 82.4 fL Normal 80-94 [facility] Comment on above: Performed By: #### L 100.0100, L500.2500 ####[facility] [address] [place], [address] Monocytes/100 WBC (Bld) 9.7 % Normal 0-10 [facility] Comment on above: Performed By: #### L 100.0100, L500.2500 ####[facility] [address] [place], [address] Neutrophils/100 WBC (Bld) 69.8 % Normal 47-70 [facility] Comment on above: Performed By: #### L 100.0100, L500.2500 ####[facility] [address] [place], [address] Nucleated RBC (Bld) [#/Vol] 0 10*3/uL Normal 0-5 [facility] Comment on above: Performed By: #### L 100.0100, L500.2500 ####[facility] [address] [place], [address] Platelet mean volume (Bld) [Entitic vol] 9.7 fL Normal 6.2-12.0 [facility] Comment on above: Performed By: #### L 100.0100, L500.2500 ####[facility] [address] [place], [address] Platelets (Bld) [#/Vol] 440 10*3/uL Normal 150-450 [facility] Comment on above: Performed By: #### L 100.0100, L500.2500 ####[facility] [address] [place], [address] RBC (Bld) [#/Vol] 3.70 10*6/uL Low 4.6-6.2 [facility] Comment on above: Performed By: #### L 100.0100, L500.2500 ####[facility] [address] [place], [address] RDW SD 42.2 fl Normal 35.1-43.9 [facility] Comment on above: Performed By: #### L 100.0100, L500.2500 ####[facility] [address] [place], [address] WBC (Bld) [#/Vol] 9.7 10*3/uL Normal 4.4-11.0 [facility] Comment on above: Performed By: #### L 100.0100, L500.2500 ####[facility] [address] [place], [address] Basic Metabolic Profile (BMP )on 04-30-2024 BUN/CRE 15.6 RATIO Normal 10-20 [facility] Comment on above: Performed By: #### L 100.0100, L500.2500 ####[facility] [address] [place], [address] CA,Total 9.0 mg/dL Normal 8.5-10.1 [facility] Comment on above: Performed By: #### L 100.0100, L500.2500 ####[facility] [address] [place], [address] Chloride [Moles/Vol] 101 mmol/L Normal 98-107 [facility] Comment on above: Performed By: #### L 100.0100, L500.2500 ####[facility] [address] [place], [address] CO2 [Moles/Vol] 24.0 mmol/L Normal 21.0-32.0 [facility] Comment on above: Performed By: #### L 100.0100, L500.2500 ####[facility] [address] [place], [address] Creatinine [Mass/Vol] 1.09 mg/dL Normal 0.70-1.30 [facility] Comment on above: Result Comment: The validity of the calculated GFR GFRAA in patients over70 years has not been determined. Clinical correlation isessential. Performed By: #### L 100.0100, L500.2500 ####[facility] [address] [place], [address] ECRCL 50.54 ml/min Normal [facility] Comment on above: Performed By: #### L 100.0100, L500.2500 ####[facility] [address] [place], [address] EST GFR - AA 84 mL/min Normal >60 [facility] Comment on above: Result Comment: Afri can Malagasy GFR Calc Performed By: #### L 100.0100, L500.2500 ####[facility] [address] [place], [address] GAP 9 Normal 5-15 [facility] Comment on above: Performed By: #### L 100.0100, L500.2500 ####[facility] [address] [place], [address] GFR/1.73 sq M.predicted among non-blacks MDRD (S/P/Bld) [Vol rate/Area] 69 mL/min/{1.73_m2} Normal >60 [facility] Comment on above: Result Comment: Non- GFR Calc Performed By: #### L 100.0100, L500.2500 ####[facility] [address] [place], [address] Glucose [Mass/Vol] 104 mg/dL Normal 74-106 [facility] Comment on above: Result Comment: Fast ing Glucose result from 100 to 125 mg/dLsuggests IMPAIRED HOMEOSTASIS per A.D.A. criteria. Performed By: #### L 100.0100, L500.2500 ####[facility] [address] [place], [address] Potassium [Moles/Vol] 4.0 mmol/L Normal 3.5-5.1 [facility] Comment on above: Performed By: #### L 100.0100, L500.2500 ####[facility] [address] [place], [address] Sodium [Moles/Vol] 134 mmol/L Low 136-145 [facility] Comment on above: Performed By: #### L 100.0100, L500.2500 ####[facility] [address] [place], [address] Urea nitrogen [Mass/Vol] 17 mg/dL Normal 7-18 [facility] Comment on above: Performed By: #### L 100.0100, L500.2500 ####[facility] [address] [place], [address] CBC W/Diff, Automatedon 09-3 0-2024 Absolute Lymph 1.45 X10 3/uL Normal 0.83-4.51 [facility] Comment on above: Performed By: #### L 100.0100, L500.2500 ####[facility] [address] [place], [address] Absolute Neut 5.7 X10 3/uL Normal 2.0-7.7 [facility] Comment on above: Performed By: #### L 100.0100, L500.2500 ####[facility] [address] [place], [address] Basophils/100 WBC (Bld) 0.1 % Normal 0-1 [facility] Comment on above: Performed By: #### L 100.0100, L500.2500 ####[facility] [address] [place], [address] Eosinophils/100 WBC (Bld) 1.3 % Normal 0-5 [facility] Comment on above: Performed By: #### L 100.0100, L500.2500 ####[facility] [address] [place], [address] Erythrocyte distribution width (RBC) [Ratio] 14.0 % Normal 11.6-14.6 [facility] Comment on above: Performed By: #### L 100.0100, L500.2500 ####[facility] [address] [place], [address] Hematocrit (Bld) [Volume fraction] 28.7 % Low 40-54 [facility] Comment on above: Performed By: #### L 100.0100, L500.2500 ####[facility] [address] [place], [address] Hemoglobin (Bld) [Mass/Vol] 9.1 g/dL Low 13.0-16.5 [facility] Comment on above: Performed By: #### L 100.0100, L500.2500 ####[facility] [address] [place], [address] IG% 0.600 Normal 0.0-0.9 [facility] Comment on above: Result Comment: IG% - Immature Granulocytes (promyelocytes, myelocytes andmetamyelocytes) > 1% indicates that a LEFT SHIFT is Present. Performed By: #### L 100.0100, L500.2500 ####[facility] [address] [place], [address] Lymphocytes/100 WBC (Bld) 17.6 % Low 19-41 [facility] Comment on above: Performed By: #### L 100.0100, L500.2500 ####[facility] [address] [place], [address] MCH (RBC) [Entitic mass] 26.0 pg Low 27.0-32.0 [facility] Comment on above: Performed By: #### L 100.0100, L500.2500 ####[facility] [address] [place], [address] MCHC (RBC) [Mass/Vol] 31.7 g/dL Low 32-36 [facility] Comment on above: Performed By: #### L 100.0100, L500.2500 ####[facility] [address] [place], [address] MCV (RBC) [Entitic vol] 82.0 fL Normal 80-94 [facility] Comment on above: Performed By: #### L 100.0100, L500.2500 ####[facility] [address] [place], [address] Monocytes/100 WBC (Bld) 11.8 % High 0-10 [facility] Comment on above: Performed By: #### L 100.0100, L500.2500 ####[facility] [address] [place], [address] Neutrophils/100 WBC (Bld) 68.6 % Normal 47-70 [facility] Comment on above: Performed By: #### L 100.0100, L500.2500 ####[facility] [address] [place], [address] Nucleated RBC (Bld) [#/Vol] 0 10*3/uL Normal 0-5 [facility] Comment on above: Performed By: #### L 100.0100, L500.2500 ####[facility] [address] [place], [address] Platelet mean volume (Bld) [Entitic vol] 9.7 fL Normal 6.2-12.0 [facility] Comment on above: Performed By: #### L 100.0100, L500.2500 ####[facility] [address] [place], [address] Platelets (Bld) [#/Vol] 360 10*3/uL Normal 150-450 [facility] Comment on above: Performed By: #### L 100.0100, L500.2500 ####[facility] [address] [place], [address] RBC (Bld) [#/Vol] 3.50 10*6/uL Low 4.6-6.2 [facility] Comment on above: Performed By: #### L 100.0100, L500.2500 ####[facility] [address] [place], [address] RDW SD 41.8 fl Normal 35.1-43.9 [facility] Comment on above: Performed By: #### L 100.0100, L500.2500 ####[facility] [address] [place], [address] WBC (Bld) [#/Vol] 8.2 10*3/uL Normal 4.4-11.0 [facility] Comment on above: Performed By: #### L 100.0100, L500.2500 ####[facility] [address] [place], [address] Basic Metabolic Profile (BMP )on 04-29-2024 BUN/CRE 13.0 RATIO Normal 10-20 [facility] Comment on above: Performed By: #### L 100.0100, L500.2500 ####[facility] [address] [place], [address] CA,Total 9.1 mg/dL Normal 8.5-10.1 [facility] Comment on above: Performed By: #### L 100.0100, L500.2500 ####[facility] [address], [address] Chloride [Moles/Vol] 101 mmol/L Normal 98-107 [facility] Comment on above: Performed By: #### L 100.0100, L500.2500 ####[facility] [address] [place], [address] CO2 [Moles/Vol] 26.0 mmol/L Normal 21.0-32.0 [facility] Comment on above: Performed By: #### L 100.0100, L500.2500 ####[facility] [address] [place], [address] Creatinine [Mass/Vol] 1.08 mg/dL Normal 0.70-1.30 [facility] Comment on above: Result Comment: The validity of the calculated GFR GFRAA in patients over70 years has not been determined. Clinical correlation isessential. Performed By: #### L 100.0100, L500.2500 ####[facility] [address] [place], [address] ECRCL 51.00 ml/min Normal [facility] Comment on above: Performed By: #### L 100.0100, L500.2500 ####[facility] [address] [place], [address] EST GFR - AA 85 mL/min Normal >60 [facility] Comment on above: Result Comment: Afri can Malagasy GFR Calc Performed By: #### L 100.0100, L500.2500 ####[facility] [address] [place], [address] GAP 6 Normal 5-15 [facility] Comment on above: Performed By: #### L 100.0100, L500.2500 ####[facility] [address] [place], [address] GFR/1.73 sq M.predicted among non-blacks MDRD (S/P/Bld) [Vol rate/Area] 70 mL/min/{1.73_m2} Normal >60 [facility] Comment on above: Result Comment: Non- GFR Calc Performed By: #### L 100.0100, L500.2500 ####[facility] [address] [place], [address] Glucose [Mass/Vol] 109 mg/dL High 74-106 [facility] Comment on above: Result Comment: Fast ing Glucose result from 100 to 125 mg/dLsuggests IMPAIRED HOMEOSTASIS per A.D.A. criteria. Performed By: #### L 100.0100, L500.2500 ####[facility] [address] [place], [address] Potassium [Moles/Vol] 4.1 mmol/L Normal 3.5-5.1 [facility] Comment on above: Performed By: #### L 100.0100, L500.2500 ####[facility] [address] [place], [address] Sodium [Moles/Vol] 133 mmol/L Low 136-145 [facility] Comment on above: Performed By: #### L 100.0100, L500.2500 ####[facility] [address] [place], [address] Urea nitrogen [Mass/Vol] 14 mg/dL Normal 7-18 [facility] Comment on above: Performed By: #### L 100.0100, L500.2500 ####[facility] [address] [place], [address] CBC W/Diff, Automatedon 09-2 Absolute Lymph 1.60 X10 3/uL Normal 0.83-4.51 [facility] Comment on above: Performed By: #### L 100.0100, L500.2500 ####[facility] [address] [place], [address] Absolute Neut 6.7 X10 3/uL Normal 2.0-7.7 [facility] Comment on above: Performed By: #### L 100.0100, L500.2500 ####[facility] [address] [place], [address] Basophils/100 WBC (Bld) 0.1 % Normal 0-1 [facility] Comment on above: Performed By: #### L 100.0100, L500.2500 ####[facility] [address] [place], [address] Eosinophils/100 WBC (Bld) 0.3 % Normal 0-5 [facility] Comment on above: Performed By: #### L 100.0100, L500.2500 ####[facility] [address] [place], [address] Erythrocyte distribution width (RBC) [Ratio] 14.0 % Normal 11.6-14.6 [facility] Comment on above: Performed By: #### L 100.0100, L500.2500 ####[facility] [address] [place], [address] Hematocrit (Bld) [Volume fraction] 27.6 % Low 40-54 [facility] Comment on above: Performed By: #### L 100.0100, L500.2500 ####[facility] [address] [place], [address] Hemoglobin (Bld) [Mass/Vol] 8.6 g/dL Low 13.0-16.5 [facility] Comment on above: Performed By: #### L 100.0100, L500.2500 ####[facility] [address] [place], [address] IG% 0.500 Normal 0.0-0.9 [facility] Comment on above: Result Comment: IG% - Immature Granulocytes (promyelocytes, myelocytes andmetamyelocytes) > 1% indicates that a LEFT SHIFT is Present. Performed By: #### L 100.0100, L500.2500 ####[facility] [address] [place], [address] Lymphocytes/100 WBC (Bld) 17.1 % Low 19-41 [facility] Comment on above: Performed By: #### L 100.0100, L500.2500 ####[facility] [address] [place], [address] MCH (RBC) [Entitic mass] 26.2 pg Low 27.0-32.0 [facility] Comment on above: Performed By: #### L 100.0100, L500.2500 ####[facility] [address] [place], [address] MCHC (RBC) [Mass/Vol] 31.2 g/dL Low 32-36 [facility] Comment on above: Performed By: #### L 100.0100, L500.2500 ####[facility] [address] [place], [address] MCV (RBC) [Entitic vol] 84.1 fL Normal 80-94 [facility] Comment on above: Performed By: #### L 100.0100, L500.2500 ####[facility] [address] [place], [address] Monocytes/100 WBC (Bld) 10.0 % Normal 0-10 [facility] Comment on above: Performed By: #### L 100.0100, L500.2500 ####[facility] [address] [place], [address] Neutrophils/100 WBC (Bld) 72.0 % High 47-70 [facility] Comment on above: Performed By: #### L 100.0100, L500.2500 ####[facility] [address] [place], [address] Nucleated RBC (Bld) [#/Vol] 0 10*3/uL Normal 0-5 [facility] Comment on above: Performed By: #### L 100.0100, L500.2500 ####[facility] [address] [place], [address] Platelet mean volume (Bld) [Entitic vol] 9.8 fL Normal 6.2-12.0 [facility] Comment on above: Performed By: #### L 100.0100, L500.2500 ####[facility] [address] [place], [address] Platelets (Bld) [#/Vol] 345 10*3/uL Normal 150-450 [facility] Comment on above: Performed By: #### L 100.0100, L500.2500 ####[facility] [address] [place], [address] RBC (Bld) [#/Vol] 3.28 10*6/uL Low 4.6-6.2 [facility] Comment on above: Performed By: #### L 100.0100, L500.2500 ####[facility] [address] [place], [address] RDW SD 42.7 fl Normal 35.1-43.9 [facility] Comment on above: Performed By: #### L 100.0100, L500.2500 ####[facility] [address] [place], [address] WBC (Bld) [#/Vol] 9.4 10*3/uL Normal 4.4-11.0 [facility] Comment on above: Performed By: #### L 100.0100, L500.2500 ####[facility] [address] [place], [address] Basic Metabolic Profile (BMP )on 04-28-2024 BUN/CRE 13.7 RATIO Normal 10-20 [facility] Comment on above: Performed By: #### L 100.0500, L500.2500 ####[facility] [address] [place], [address] CA,Total 8.2 mg/dL Low 8.5-10.1 [facility] Comment on above: Performed By: #### L 100.0500, L500.2500 ####[facility] [address] [place], [address] Chloride [Moles/Vol] 101 mmol/L Normal 98-107 [facility] Comment on above: Performed By: #### L 100.0500, L500.2500 ####[facility] [address] [place], [address] CO2 [Moles/Vol] 26.0 mmol/L Normal 21.0-32.0 [facility] Comment on above: Performed By: #### L 100.0500, L500.2500 ####[facility] [address] [place], [address] Creatinine [Mass/Vol] 1.31 mg/dL High 0.70-1.30 [facility] Comment on above: Result Comment: The validity of the calculated GFR GFRAA in patients over70 years has not been determined. Clinical correlation isessential. Performed By: #### L 100.0500, L500.2500 ####[facility] [address] [place], [address] ECRCL 42.05 ml/min Normal [facility] Comment on above: Performed By: #### L 100.0500, L500.2500 ####[facility] [address] [place], [address] EST GFR - AA 68 mL/min Normal >60 [facility] Comment on above: Result Comment: Afri can Malagasy GFR Calc Performed By: #### L 100.0500, L500.2500 ####[facility] [address] [place], [address] GAP 4 Low 5-15 [facility] Comment on above: Performed By: #### L 100.0500, L500.2500 ####[facility] [address] [place], [address] GFR/1.73 sq M.predicted among non-blacks MDRD (S/P/Bld) [Vol rate/Area] 56 mL/min/{1.73_m2} Low >60 [facility] Comment on above: Result Comment: Non- GFR Calc Performed By: #### L 100.0500, L500.2500 ####[facility] [address] [place], [address] Glucose [Mass/Vol] 130 mg/dL High 74-106 [facility] Comment on above: Result Comment: Fast ing Glucose result greater than or equal to 126 mg/dLsuggests DIABETES MELLITUS per A.D.A. criteria. Performed By: #### L 100.0500, L500.2500 ####[facility] [address] [place], [address] Potassium [Moles/Vol] 4.4 mmol/L Normal 3.5-5.1 [facility] Comment on above: Performed By: #### L 100.0500, L500.2500 ####[facility] [address] [place], [address] Sodium [Moles/Vol] 131 mmol/L Low 136-145 [facility] Comment on above: Performed By: #### L 100.0500, L500.2500 ####[facility] [address] [place], [address] Urea nitrogen [Mass/Vol] 18 mg/dL Normal 7-18 [facility] Comment on above: Performed By: #### L 100.0500, L500.2500 ####[facility] [address] [place], [address] CBC-Complete Blood Cnt No Di ffon 04-28-2024 Erythrocyte distribution width (RBC) [Ratio] 14.0 % Normal 11.6-14.6 [facility] Comment on above: Performed By: #### L 100.0500, L500.2500 ####[facility] [address], [address] Hematocrit (Bld) [Volume fraction] 26.3 % Low 40-54 [facility] Comment on above: Performed By: #### L 100.0500, L500.2500 ####[facility] [address] [place], [address] Hemoglobin (Bld) [Mass/Vol] 8.1 g/dL Low 13.0-16.5 [facility] Comment on above: Performed By: #### L 100.0500, L500.2500 ####[facility] [address] [place], [address] MCH (RBC) [Entitic mass] 26.1 pg Low 27.0-32.0 [facility] Comment on above: Performed By: #### L 100.0500, L500.2500 ####[facility] [address] [place], [address] MCHC (RBC) [Mass/Vol] 30.8 g/dL Low 32-36 [facility] Comment on above: Performed By: #### L 100.0500, L500.2500 ####[facility] [address] [place], [address] MCV (RBC) [Entitic vol] 84.8 fL Normal 80-94 [facility] Comment on above: Performed By: #### L 100.0500, L500.2500 ####[facility] [address] [place], [address] Platelet mean volume (Bld) [Entitic vol] 10.2 fL Normal 6.2-12.0 [facility] Comment on above: Performed By: #### L 100.0500, L500.2500 ####[facility] [address] [place], [address] Platelets (Bld) [#/Vol] 296 10*3/uL Normal 150-450 [facility] Comment on above: Performed By: #### L 100.0500, L500.2500 ####[facility] [address] [place], [address] RBC (Bld) [#/Vol] 3.10 10*6/uL Low 4.6-6.2 [facility] Comment on above: Performed By: #### L 100.0500, L500.2500 ####[facility] [address] [place], [address] RDW SD 43.3 fl Normal 35.1-43.9 [facility] Comment on above: Performed By: #### L 100.0500, L500.2500 ####[facility] [address] [place], [address] WBC (Bld) [#/Vol] 9.1 10*3/uL Normal 4.4-11.0 [facility] Comment on above: Performed By: #### L 100.0500, L500.2500 ####[facility] [address] [place], [address] Bedside Glucoseon 04-27-2024 FINGERSTICK GLU 113 mg/dL High 74-106 [facility] Comment on above: Result Comment: STELLA FLORES OF PATIENT CARE PER NURSING PROTOCOL Performed By: #### L 501.080 ####[facility] [address] [place], [address] CBC-Complete Blood Cnt No Di ffon 04-27-2024 Erythrocyte distribution width (RBC) [Ratio] 13.7 % Normal 11.6-14.6 [facility] Comment on above: Performed By: #### L 100.0500 ####[facility] [address] [place], [address] Hematocrit (Bld) [Volume fraction] 30.5 % Low 40-54 [facility] Comment on above: Performed By: #### L 100.0500 ####[facility] [address] [place], [address] Hemoglobin (Bld) [Mass/Vol] 9.4 g/dL Low 13.0-16.5 [facility] Comment on above: Performed By: #### L 100.0500 ####[facility] [address] [place], [address] MCH (RBC) [Entitic mass] 26.0 pg Low 27.0-32.0 [facility] Comment on above: Performed By: #### L 100.0500 ####[facility] [address] [place], [address] MCHC (RBC) [Mass/Vol] 30.8 g/dL Low 32-36 [facility] Comment on above: Performed By: #### L 100.0500 ####[facility] [address] [place], [address] MCV (RBC) [Entitic vol] 84.3 fL Normal 80-94 [facility] Comment on above: Performed By: #### L 100.0500 ####[facility] [address] [place], [address] Platelet mean volume (Bld) [Entitic vol] 9.7 fL Normal 6.2-12.0 [facility] Comment on above: Performed By: #### L 100.0500 ####[facility] [address] [place], [address] Platelets (Bld) [#/Vol] 346 10*3/uL Normal 150-450 [facility] Comment on above: Performed By: #### L 100.0500 ####[facility] [address] [place], [address] RBC (Bld) [#/Vol] 3.62 10*6/uL Low 4.6-6.2 [facility] Comment on above: Performed By: #### L 100.0500 ####[facility] [address] [place], [address] RDW SD 42.4 fl Normal 35.1-43.9 [facility] Comment on above: Performed By: #### L 100.0500 ####[facility] [address] [place], [address] WBC (Bld) [#/Vol] 7.1 10*3/uL Normal 4.4-11.0 [facility] Comment on above: Performed By: #### L 100.0500 ####[facility] [address] [place], [address] MLH-1 (add)on 04-27-2024 MLH-1 (add) Normal [facility] Comment on above: Performed By: #### P MLH1. ####[facility] [address] [place], [address] MR/POSTOP.ANEon 04-27-2024 MR/POSTOP.ANE Normal [facility] MR/GBVMZLTI4xw 04-27-2024 MR/POSTOPAN2 Normal [facility] Magnesiumon 04-27-2024 Magnesium [Mass/Vol] 1.9 mg/dL Normal 1.6-2.6 [facility] Comment on above: Performed By: #### L 501.5200 ####[facility] [address] [place], [address] Operative Reporton Operative Report Normal [facility] Surgery Specimen Level VIon 04-27-2024 Surgery Specimen Level Normal [facility] Comment on above: Performed By: #### P SUVI ####[facility] [address] [place], [address] Cardiology Visit Reporton Cardiology Visit Report Normal [facility] Surgery Visit Reporton 04-20 Surgery Visit Report Normal [facility] CBC W/Diff, Automatedon 04-01 Absolute Lymph 1.42 X10 3/uL Normal 0.83-4.51 [facility] Comment on above: Performed By: #### L 100.0100 ####[facility] [address] [place], [address] Absolute Neut 3.1 X10 3/uL Normal 2.0-7.7 [facility] Comment on above: Performed By: #### L 100.0100 ####[facility] [address] [place], [address] Basophils/100 WBC (Bld) 0.5 % Normal 0-1 [facility] Comment on above: Performed By: #### L 100.0100 ####[facility] [address] [place], [address] Eosinophils/100 WBC (Bld) 5.9 % High 0-5 [facility] Comment on above: Performed By: #### L 100.0100 ####[facility] [address] [place], [address] Erythrocyte distribution width (RBC) [Ratio] 13.4 % Normal 11.6-14.6 [facility] Comment on above: Performed By: #### L 100.0100 ####[facility] [address] [place], [address] Hematocrit (Bld) [Volume fraction] 30.5 % Low 40-54 [facility] Comment on above: Performed By: #### L 100.0100 ####[facility] [address] [place], [address] Hemoglobin (Bld) [Mass/Vol] 9.3 g/dL Low 13.0-16.5 [facility] Comment on above: Performed By: #### L 100.0100 ####[facility] [address] [place], [address] IG% 0.200 Normal 0.0-0.9 [facility] Comment on above: Result Comment: IG% - Immature Granulocytes (promyelocytes, myelocytes andmetamyelocytes) > 1% indicates that a LEFT SHIFT is Present. Performed By: #### L 100.0100 ####[facility] [address] [place], [address] Lymphocytes/100 WBC (Bld) 25.6 % Normal 19-41 [facility] Comment on above: Performed By: #### L 100.0100 ####[facility] [address] [place], [address] MCH (RBC) [Entitic mass] 26.2 pg Low 27.0-32.0 [facility] Comment on above: Performed By: #### L 100.0100 ####[facility] [address] [place], [address] MCHC (RBC) [Mass/Vol] 30.5 g/dL Low 32-36 [facility] Comment on above: Performed By: #### L 100.0100 ####[facility] [address] [place], [address] MCV (RBC) [Entitic vol] 85.9 fL Normal 80-94 [facility] Comment on above: Performed By: #### L 100.0100 ####[facility] [address] [place], [address] Monocytes/100 WBC (Bld) 12.1 % High 0-10 [facility] Comment on above: Performed By: #### L 100.0100 ####[facility] [address] [place], [address] Neutrophils/100 WBC (Bld) 55.7 % Normal 47-70 [facility] Comment on above: Performed By: #### L 100.0100 ####[facility] [address] [place], [address] Nucleated RBC (Bld) [#/Vol] 0 10*3/uL Normal 0-5 [facility] Comment on above: Performed By: #### L 100.0100 ####[facility] [address] [place], [address] Platelet mean volume (Bld) [Entitic vol] 9.3 fL Normal 6.2-12.0 [facility] Comment on above: Performed By: #### L 100.0100 ####[facility] [address] [place], [address] Platelets (Bld) [#/Vol] 303 10*3/uL Normal 150-450 [facility] Comment on above: Performed By: #### L 100.0100 ####[facility] [address] [place], [address] RBC (Bld) [#/Vol] 3.55 10*6/uL Low 4.6-6.2 [facility] Comment on above: Performed By: #### L 100.0100 ####[facility] [address] [place], [address] RDW SD 42.2 fl Normal 35.1-43.9 [facility] Comment on above: Performed By: #### L 100.0100 ####[facility] [address] [place], [address] WBC (Bld) [#/Vol] 5.6 10*3/uL Normal 4.4-11.0 [facility] Comment on above: Performed By: #### L 100.0100 ####[facility] [address] [place], [address] Basic Metabolic Profile (BMP )on 04-14-2024 BUN/CRE 13.0 RATIO Normal 10-20 [facility] Comment on above: Performed By: #### L 100.0100, L500.2500 ####[facility] [address] [place], [address] CA,Total 8.1 mg/dL Low 8.5-10.1 [facility] Comment on above: Performed By: #### L 100.0100, L500.2500 ####[facility] [address] [place], [address] Chloride [Moles/Vol] 108 mmol/L High 98-107 [facility] Comment on above: Performed By: #### L 100.0100, L500.2500 ####[facility] [address] [place], [address] CO2 [Moles/Vol] 23.0 mmol/L Normal 21.0-32.0 [facility] Comment on above: Performed By: #### L 100.0100, L500.2500 ####[facility] [address] [place], [address] Creatinine [Mass/Vol] 1.23 mg/dL Normal 0.70-1.30 [facility] Comment on above: Result Comment: The validity of the calculated GFR GFRAA in patients over70 years has not been determined. Clinical correlation isessential. Performed By: #### L 100.0100, L500.2500 ####[facility] [address] [place], [address] ECRCL 44.78 ml/min Normal [facility] Comment on above: Performed By: #### L 100.0100, L500.2500 ####[facility] [address] [place], [address] EST GFR - AA 73 mL/min Normal >60 [facility] Comment on above: Result Comment: Afri can Malagasy GFR Calc Performed By: #### L 100.0100, L500.2500 ####[facility] [address] [place], [address] GAP 7 Normal 5-15 [facility] Comment on above: Performed By: #### L 100.0100, L500.2500 ####[facility] [address] [place], [address] GFR/1.73 sq M.predicted among non-blacks MDRD (S/P/Bld) [Vol rate/Area] 60 mL/min/{1.73_m2} Normal >60 [facility] Comment on above: Result Comment: Non- GFR Calc Performed By: #### L 100.0100, L500.2500 ####[facility] [address] [place], [address] Glucose [Mass/Vol] 105 mg/dL Normal 74-106 [facility] Comment on above: Result Comment: Fast ing Glucose result from 100 to 125 mg/dLsuggests IMPAIRED HOMEOSTASIS per A.D.A. criteria. Performed By: #### L 100.0100, L500.2500 ####[facility] [address] [place], [address] Potassium [Moles/Vol] 3.4 mmol/L Low 3.5-5.1 [facility] Comment on above: Performed By: #### L 100.0100, L500.2500 ####[facility] [address] [place], [address] Sodium [Moles/Vol] 138 mmol/L Normal 136-145 [facility] Comment on above: Performed By: #### L 100.0100, L500.2500 ####[facility] [address] [place], [address] Urea nitrogen [Mass/Vol] 16 mg/dL Normal 7-18 [facility] Comment on above: Performed By: #### L 100.0100, L500.2500 ####[facility] [address], [address] CBC W/Diff, Automatedon 09-08 04-2023 Absolute Lymph 1.52 X10 3/uL Normal 0.83-4.51 [facility] Comment on above: Performed By: #### L 100.0100, L500.2500 ####[facility] [address] [place], [address] Absolute Neut 4.8 X10 3/uL Normal 2.0-7.7 [facility] Comment on above: Performed By: #### L 100.0100, L500.2500 ####[facility] [address] [place], [address] Basophils/100 WBC (Bld) 0.1 % Normal 0-1 [facility] Comment on above: Performed By: #### L 100.0100, L500.2500 ####[facility] [address] [place], [address] Eosinophils/100 WBC (Bld) 3.4 % Normal 0-5 [facility] Comment on above: Performed By: #### L 100.0100, L500.2500 ####[facility] [address] [place], [address] Erythrocyte distribution width (RBC) [Ratio] 13.4 % Normal 11.6-14.6 [facility] Comment on above: Performed By: #### L 100.0100, L500.2500 ####[facility] [address] [place], [address] Hematocrit (Bld) [Volume fraction] 30.9 % Low 40-54 [facility] Comment on above: Performed By: #### L 100.0100, L500.2500 ####[facility] [address], [address] Hemoglobin (Bld) [Mass/Vol] 9.5 g/dL Low 13.0-16.5 [facility] Comment on above: Performed By: #### L 100.0100, L500.2500 ####[facility] [address] [place], [address] IG% 0.300 Normal 0.0-0.9 [facility] Comment on above: Result Comment: IG% - Immature Granulocytes (promyelocytes, myelocytes andmetamyelocytes) > 1% indicates that a LEFT SHIFT is Present. Performed By: #### L 100.0100, L500.2500 ####[facility] [address] [place], [address] Lymphocytes/100 WBC (Bld) 20.1 % Normal 19-41 [facility] Comment on above: Performed By: #### L 100.0100, L500.2500 ####[facility] [address] [place], [address] MCH (RBC) [Entitic mass] 26.2 pg Low 27.0-32.0 [facility] Comment on above: Performed By: #### L 100.0100, L500.2500 ####[facility] [address] [place], [address] MCHC (RBC) [Mass/Vol] 30.7 g/dL Low 32-36 [facility] Comment on above: Performed By: #### L 100.0100, L500.2500 ####[facility] [address] [place], [address] MCV (RBC) [Entitic vol] 85.4 fL Normal 80-94 [facility] Comment on above: Performed By: #### L 100.0100, L500.2500 ####[facility] [address] [place], [address] Monocytes/100 WBC (Bld) 12.2 % High 0-10 [facility] Comment on above: Performed By: #### L 100.0100, L500.2500 ####[facility] [address] [place], [address] Neutrophils/100 WBC (Bld) 63.9 % Normal 47-70 [facility] Comment on above: Performed By: #### L 100.0100, L500.2500 ####[facility] [address] [place], [address] Nucleated RBC (Bld) [#/Vol] 0 10*3/uL Normal 0-5 [facility] Comment on above: Performed By: #### L 100.0100, L500.2500 ####[facility] [address] [place], [address] Platelet mean volume (Bld) [Entitic vol] 9.4 fL Normal 6.2-12.0 [facility] Comment on above: Performed By: #### L 100.0100, L500.2500 ####[facility] [address] [place], [address] Platelets (Bld) [#/Vol] 321 10*3/uL Normal 150-450 [facility] Comment on above: Performed By: #### L 100.0100, L500.2500 ####[facility] [address] [place], [address] RBC (Bld) [#/Vol] 3.62 10*6/uL Low 4.6-6.2 [facility] Comment on above: Performed By: #### L 100.0100, L500.2500 ####[facility] [address] [place], [address] RDW SD 42.0 fl Normal 35.1-43.9 [facility] Comment on above: Performed By: #### L 100.0100, L500.2500 ####[facility] [address] [place], [address] WBC (Bld) [#/Vol] 7.6 10*3/uL Normal 4.4-11.0 [facility] Comment on above: Performed By: #### L 100.0100, L500.2500 ####[facility] [address] [place], [address] MR/PN.GIon 04-14-2024 MR/PN.GI Normal [facility] Basic Metabolic Profile (BMP )on 04-13-2024 BUN/CRE 12.6 RATIO Normal 10-20 [facility] Comment on above: Performed By: #### L 100.0100, L500.2500 ####[facility] [address] [place], [address] CA,Total 8.9 mg/dL Normal 8.5-10.1 [facility] Comment on above: Performed By: #### L 100.0100, L500.2500 ####[facility] [address] [place], [address] Chloride [Moles/Vol] 106 mmol/L Normal 98-107 [facility] Comment on above: Performed By: #### L 100.0100, L500.2500 ####[facility] [address] [place], [address] CO2 [Moles/Vol] 24.0 mmol/L Normal 21.0-32.0 [facility] Comment on above: Performed By: #### L 100.0100, L500.2500 ####[facility] [address] [place], [address] Creatinine [Mass/Vol] 1.19 mg/dL Normal 0.70-1.30 [facility] Comment on above: Result Comment: The validity of the calculated GFR GFRAA in patients over70 years has not been determined. Clinical correlation isessential. Performed By: #### L 100.0100, L500.2500 ####[facility] [address] [place], [address] ECRCL 46.29 ml/min Normal [facility] Comment on above: Performed By: #### L 100.0100, L500.2500 ####[facility] [address] [place], [address] EST GFR - AA 76 mL/min Normal >60 [facility] Comment on above: Result Comment: Afri can Malagasy GFR Calc Performed By: #### L 100.0100, L500.2500 ####[facility] [address] [place], [address] GAP 8 Normal 5-15 [facility] Comment on above: Performed By: #### L 100.0100, L500.2500 ####[facility] [address] [place], [address] GFR/1.73 sq M.predicted among non-blacks MDRD (S/P/Bld) [Vol rate/Area] 63 mL/min/{1.73_m2} Normal >60 [facility] Comment on above: Result Comment: Non- GFR Calc Performed By: #### L 100.0100, L500.2500 ####[facility] [address] [place], [address] Glucose [Mass/Vol] 99 mg/dL Normal 74-106 [facility] Comment on above: Performed By: #### L 100.0100, L500.2500 ####[facility] [address] [place], [address] Potassium [Moles/Vol] 3.6 mmol/L Normal 3.5-5.1 [facility] Comment on above: Performed By: #### L 100.0100, L500.2500 ####[facility] [address] [place], [address] Sodium [Moles/Vol] 138 mmol/L Normal 136-145 [facility] Comment on above: Performed By: #### L 100.0100, L500.2500 ####[facility] [address] [place], [address] Urea nitrogen [Mass/Vol] 15 mg/dL Normal 7-18 [facility] Comment on above: Performed By: #### L 100.0100, L500.2500 ####[facility] [address] [place], [address] CBC W/Diff, Automatedon 04-01-2023 Absolute Lymph 1.30 X10 3/uL Normal 0.83-4.51 [facility] Comment on above: Performed By: #### L 100.0100, L500.2500 ####[facility] [address] [place], [address] Absolute Neut 3.5 X10 3/uL Normal 2.0-7.7 [facility] Comment on above: Performed By: #### L 100.0100, L500.2500 ####[facility] [address] [place], [address] Basophils/100 WBC (Bld) 0.2 % Normal 0-1 [facility] Comment on above: Performed By: #### L 100.0100, L500.2500 ####[facility] [address] [place], [address] Eosinophils/100 WBC (Bld) 2.8 % Normal 0-5 [facility] Comment on above: Performed By: #### L 100.0100, L500.2500 ####[facility] [address] [place], [address] Erythrocyte distribution width (RBC) [Ratio] 13.4 % Normal 11.6-14.6 [facility] Comment on above: Performed By: #### L 100.0100, L500.2500 ####[facility] [address] [place], [address] Hematocrit (Bld) [Volume fraction] 34.1 % Low 40-54 [facility] Comment on above: Performed By: #### L 100.0100, L500.2500 ####[facility] [address] [place], [address] Hemoglobin (Bld) [Mass/Vol] 10.8 g/dL Low 13.0-16.5 [facility] Comment on above: Performed By: #### L 100.0100, L500.2500 ####[facility] [address] [place], [address] IG% 0.300 Normal 0.0-0.9 [facility] Comment on above: Result Comment: IG% - Immature Granulocytes (promyelocytes, myelocytes andmetamyelocytes) > 1% indicates that a LEFT SHIFT is Present. Performed By: #### L 100.0100, L500.2500 ####[facility] [address] [place], [address] Lymphocytes/100 WBC (Bld) 22.6 % Normal 19-41 [facility] Comment on above: Performed By: #### L 100.0100, L500.2500 ####[facility] [address] [place], [address] MCH (RBC) [Entitic mass] 26.7 pg Low 27.0-32.0 [facility] Comment on above: Performed By: #### L 100.0100, L500.2500 ####[facility] [address] [place], [address] MCHC (RBC) [Mass/Vol] 31.7 g/dL Low 32-36 [facility] Comment on above: Performed By: #### L 100.0100, L500.2500 ####[facility] [address] [place], [address] MCV (RBC) [Entitic vol] 84.4 fL Normal 80-94 [facility] Comment on above: Performed By: #### L 100.0100, L500.2500 ####[facility] [address] [place], [address] Monocytes/100 WBC (Bld) 12.5 % High 0-10 [facility] Comment on above: Performed By: #### L 100.0100, L500.2500 ####[facility] [address] [place], [address] Neutrophils/100 WBC (Bld) 61.6 % Normal 47-70 [facility] Comment on above: Performed By: #### L 100.0100, L500.2500 ####[facility] [address] [place], [address] Nucleated RBC (Bld) [#/Vol] 0 10*3/uL Normal 0-5 [facility] Comment on above: Performed By: #### L 100.0100, L500.2500 ####[facility] [address] [place], [address] Platelet mean volume (Bld) [Entitic vol] 9.4 fL Normal 6.2-12.0 [facility] Comment on above: Performed By: #### L 100.0100, L500.2500 ####[facility] [address] [place], [address] Platelets (Bld) [#/Vol] 343 10*3/uL Normal 150-450 [facility] Comment on above: Performed By: #### L 100.0100, L500.2500 ####[facility] [address] [place], [address] RBC (Bld) [#/Vol] 4.04 10*6/uL Low 4.6-6.2 [facility] Comment on above: Performed By: #### L 100.0100, L500.2500 ####[facility] [address] [place], [address] RDW SD 41.8 fl Normal 35.1-43.9 [facility] Comment on above: Performed By: #### L 100.0100, L500.2500 ####[facility] [address] [place], [address] WBC (Bld) [#/Vol] 5.8 10*3/uL Normal 4.4-11.0 [facility] Comment on above: Performed By: #### L 100.0100, L500.2500 ####[facility] [address] [place], [address] Carcinoembryonic Antigenon 0 04-13-2024 CEA 2.7 ng/mL Normal 0.0-4.7 [facility] Comment on above: Result Comment: Nons mokers <3.9 Smokers <5.6[employer] Electrochemiluminescence Immunoassay(ECLIA)Values obtained with different assay methods or kitscannot be used interchangeably. Results cannot beinterpreted as absolute evidence of the presence orabsence of malignant disease.Performed at: [address] [id number] Director: Jian Paredes PhD, Phone: [phone] Performed By: #### L 1223.1859 ####[facility] [address] [place], [address] Colonoscopy Reporton 024 Colonoscopy Report Normal [facility] HER-2-DIONNA (initial)on 2023 HER-2-DIONNA (initial) Normal [facility] Comment on above: Performed By: #### P HER2 ####[facility] [address] [place], [address] MR/POSTOP.ANEon 04-13-2024 MR/POSTOP.ANE Normal [facility] MR/XOPOJNUP6tr 04-13-2024 MR/POSTOPAN2 Normal [facility] Partial Thromboplast Timeon 04-13-2024 aPTT Coag (Bld) [Time] 29.4 s Normal 24.1-36.2 [facility] Comment on above: Performed By: #### L 300.3900, L300.4310 ####[facility] [address] [place], [address] Prothrombin Time w/INRon INR Coag (PPP) [Relative time] 1.1 {INR} Normal [facility] Comment on above: Performed By: #### L 300.3900, L300.4310 ####[facility] [address] [place], [address] PT Coag (PPP) [Time] 14.6 s Normal 11.7-14.9 [facility] Comment on above: Performed By: #### L 300.3900, L300.4310 ####[facility] [address] [place], [address] Special Stain Group Ion 04-01 Special Stain Group I Normal [facility] Comment on above: Performed By: #### P SSI ####[facility] [address] [place], [address] CBC W/Diff, Automatedon 04-01 Absolute Lymph 1.44 X10 3/uL Normal 0.83-4.51 [facility] Comment on above: Performed By: #### L 501.2300, L100.0100, L500.4050, L501.9520, L501.5200 ####[facility] [address] [place], [address] Absolute Neut 3.5 X10 3/uL Normal 2.0-7.7 [facility] Comment on above: Performed By: #### L 501.2300, L100.0100, L500.4050, L501.9520, L501.5200 ####[facility] [address] [place], [address] Basophils/100 WBC (Bld) 0.4 % Normal 0-1 [facility] Comment on above: Performed By: #### L 501.2300, L100.0100, L500.4050, L501.9520, L501.5200 ####[facility] [address] [place], [address] Eosinophils/100 WBC (Bld) 1.8 % Normal 0-5 [facility] Comment on above: Performed By: #### L 501.2300, L100.0100, L500.4050, L501.9520, L501.5200 ####[facility] [address] [place], [address] Erythrocyte distribution width (RBC) [Ratio] 13.3 % Normal 11.6-14.6 [facility] Comment on above: Performed By: #### L 501.2300, L100.0100, L500.4050, L501.9520, L501.5200 ####[facility] [address] [place], [address] Hematocrit (Bld) [Volume fraction] 32.7 % Low 40-54 [facility] Comment on above: Performed By: #### L 501.2300, L100.0100, L500.4050, L501.9520, L501.5200 ####[facility] [address] [place], [address] Hemoglobin (Bld) [Mass/Vol] 10.5 g/dL Low 13.0-16.5 [facility] Comment on above: Performed By: #### L 501.2300, L100.0100, L500.4050, L501.9520, L501.5200 ####[facility] [address] [place], [address] IG% 0.500 Normal 0.0-0.9 [facility] Comment on above: Result Comment: IG% - Immature Granulocytes (promyelocytes, myelocytes andmetamyelocytes) > 1% indicates that a LEFT SHIFT is Present. Performed By: #### L 501.2300, L100.0100, L500.4050, L501.9520, L501.5200 ####[facility] [address] [place], [address] Lymphocytes/100 WBC (Bld) 25.3 % Normal 19-41 [facility] Comment on above: Performed By: #### L 501.2300, L100.0100, L500.4050, L501.9520, L501.5200 ####[facility] [address] [place], [address] MCH (RBC) [Entitic mass] 27.5 pg Normal 27.0-32.0 [facility] Comment on above: Performed By: #### L 501.2300, L100.0100, L500.4050, L501.9520, L501.5200 ####[facility] [address] [place], [address] MCHC (RBC) [Mass/Vol] 32.1 g/dL Normal 32-36 [facility] Comment on above: Performed By: #### L 501.2300, L100.0100, L500.4050, L501.9520, L501.5200 ####[facility] [address] [place], [address] MCV (RBC) [Entitic vol] 85.6 fL Normal 80-94 [facility] Comment on above: Performed By: #### L 501.2300, L100.0100, L500.4050, L501.9520, L501.5200 ####[facility] [address] [place], [address] Monocytes/100 WBC (Bld) 10.5 % High 0-10 [facility] Comment on above: Performed By: #### L 501.2300, L100.0100, L500.4050, L501.9520, L501.5200 ####[facility] [address] [place], [address] Neutrophils/100 WBC (Bld) 61.5 % Normal 47-70 [facility] Comment on above: Performed By: #### L 501.2300, L100.0100, L500.4050, L501.9520, L501.5200 ####[facility] [address] [place], [address] Nucleated RBC (Bld) [#/Vol] 0 10*3/uL Normal 0-5 [facility] Comment on above: Performed By: #### L 501.2300, L100.0100, L500.4050, L501.9520, L501.5200 ####[facility] [address] [place], [address] Platelet mean volume (Bld) [Entitic vol] 9.2 fL Normal 6.2-12.0 [facility] Comment on above: Performed By: #### L 501.2300, L100.0100, L500.4050, L501.9520, L501.5200 ####[facility] [address] [place], [address] Platelets (Bld) [#/Vol] 314 10*3/uL Normal 150-450 [facility] Comment on above: Performed By: #### L 501.2300, L100.0100, L500.4050, L501.9520, L501.5200 ####[facility] [address] [place], [address] RBC (Bld) [#/Vol] 3.82 10*6/uL Low 4.6-6.2 [facility] Comment on above: Performed By: #### L 501.2300, L100.0100, L500.4050, L501.9520, L501.5200 ####[facility] [address] [place], [address] RDW SD 41.6 fl Normal 35.1-43.9 [facility] Comment on above: Performed By: #### L 501.2300, L100.0100, L500.4050, L501.9520, L501.5200 ####[facility] [address] [place], [address] WBC (Bld) [#/Vol] 5.7 10*3/uL Normal 4.4-11.0 [facility] Comment on above: Performed By: #### L 501.2300, L100.0100, L500.4050, L501.9520, L501.5200 ####[facility] [address] [place], [address] Comprehensive Metabolic [facility] 04-12-2024 Albumin [Mass/Vol] 3.8 g/dL Normal 3.2-5.0 [facility] Comment on above: Performed By: #### L 501.2300, L100.0100, L500.4050, L501.9520, L501.5200 ####[facility] [address] [place], [address] Albumin/Globulin [Mass ratio] 1.1 {ratio} Normal 0.9-2.4 [facility] Comment on above: Performed By: #### L 501.2300, L100.0100, L500.4050, L501.9520, L501.5200 ####[facility] [address] [place], [address] ALK P 88 U/L Normal 45-117 [facility] Comment on above: Performed By: #### L 501.2300, L100.0100, L500.4050, L501.9520, L501.5200 ####[facility] [address] [place], [address] ALT [Catalytic activity/Vol] 22 U/L Normal 16-61 [facility] Comment on above: Performed By: #### L 501.2300, L100.0100, L500.4050, L501.9520, L501.5200 ####[facility] [address] [place], [address] AST [Catalytic activity/Vol] 20 U/L Normal 15-37 [facility] Comment on above: Performed By: #### L 501.2300, L100.0100, L500.4050, L501.9520, L501.5200 ####[facility] [address] [place], [address] Bilirubin [Mass/Vol] 0.90 mg/dL Normal 0.20-1.00 [facility] Comment on above: Result Comment: For patients on eltrombopag therapy, use of Dimension Kamas TBIL is not recommended. Performed By: #### L 501.2300, L100.0100, L500.4050, L501.9520, L501.5200 ####[facility] [address] [place], [address] BUN/CRE 13.7 RATIO Normal 10-20 [facility] Comment on above: Performed By: #### L 501.2300, L100.0100, L500.4050, L501.9520, L501.5200 ####[facility] [address] [place], [address] CA,Total 8.9 mg/dL Normal 8.5-10.1 [facility] Comment on above: Performed By: #### L 501.2300, L100.0100, L500.4050, L501.9520, L501.5200 ####[facility] [address] [place], [address] Chloride [Moles/Vol] 104 mmol/L Normal 98-107 [facility] Comment on above: Performed By: #### L 501.2300, L100.0100, L500.4050, L501.9520, L501.5200 ####[facility] [address] [place], [address] CO2 [Moles/Vol] 29.0 mmol/L Normal 21.0-32.0 [facility] Comment on above: Performed By: #### L 501.2300, L100.0100, L500.4050, L501.9520, L501.5200 ####[facility] [address] [place], [address] Creatinine [Mass/Vol] 1.17 mg/dL Normal 0.70-1.30 [facility] Comment on above: Result Comment: The validity of the calculated GFR GFRAA in patients over70 years has not been determined. Clinical correlation isessential. Performed By: #### L 501.2300, L100.0100, L500.4050, L501.9520, L501.5200 ####[facility] [address] [place], [address] ECRCL 48.72 ml/min Normal [facility] Comment on above: Performed By: #### L 501.2300, L100.0100, L500.4050, L501.9520, L501.5200 ####[facility] [address] [place], [address] EST GFR - AA 77 mL/min Normal >60 [facility] Comment on above: Result Comment: Afri can Malagasy GFR Calc Performed By: #### L 501.2300, L100.0100, L500.4050, L501.9520, L501.5200 ####[facility] [address] [place], [address] GAP 4 Low 5-15 [facility] Comment on above: Performed By: #### L 501.2300, L100.0100, L500.4050, L501.9520, L501.5200 ####[facility] [address] [place], [address] GFR/1.73 sq M.predicted among non-blacks MDRD (S/P/Bld) [Vol rate/Area] 64 mL/min/{1.73_m2} Normal >60 [facility] Comment on above: Result Comment: Non- GFR Calc Performed By: #### L 501.2300, L100.0100, L500.4050, L501.9520, L501.5200 ####[facility] [address] [place], [address] Globulin (S) [Mass/Vol] 3.5 g/dL Normal 2.2-4.2 [facility] Comment on above: Performed By: #### L 501.2300, L100.0100, L500.4050, L501.9520, L501.5200 ####[facility] [address] [place], [address] Glucose [Mass/Vol] 98 mg/dL Normal 74-106 [facility] Comment on above: Performed By: #### L 501.2300, L100.0100, L500.4050, L501.9520, L501.5200 ####[facility] [address] [place], [address] Potassium [Moles/Vol] 3.5 mmol/L Normal 3.5-5.1 [facility] Comment on above: Performed By: #### L 501.2300, L100.0100, L500.4050, L501.9520, L501.5200 ####[facility] [address] [place], [address] Sodium [Moles/Vol] 137 mmol/L Normal 136-145 [facility] Comment on above: Performed By: #### L 501.2300, L100.0100, L500.4050, L501.9520, L501.5200 ####[facility] [address] [place], [address] T PROT 7.3 g/dL Normal 6.4-8.2 [facility] Comment on above: Performed By: #### L 501.2300, L100.0100, L500.4050, L501.9520, L501.5200 ####[facility] [address] [place], [address] Urea nitrogen [Mass/Vol] 16 mg/dL Normal 7-18 [facility] Comment on above: Performed By: #### L 501.2300, L100.0100, L500.4050, L501.9520, L501.5200 ####[facility] [address] [place], [address] Consultation - Surgicalon Consultation - Surgical Normal [facility] Ferritinon 04-12-2024 Ferritin [Mass/Vol] 17 ng/mL Low 26-388 [facility] Comment on above: Performed By: #### L 503.6030, L503.6550 ####[facility] [address] [place], [address] Iron+Iron Binding Capacityon 04-12-2024 Iron [Mass/Vol] 16 ug/dL Low 65-175 [facility] Comment on above: Performed By: #### L 503.6030, L503.6550 ####[facility] [address] [place], [address] IRON SATURATION 4.1 Low 15.0-55.0 [facility] Comment on above: Performed By: #### L 503.6030, L503.6550 ####[facility] [address] [place], [address] TIBC 387 ug/dL Normal 250-450 [facility] Comment on above: Performed By: #### L 503.6030, L503.6550 ####[facility] [address] [place], [address] MR/CON.PCM.GIon 04-12-2024 MR/CON.PCM.GI Normal [facility] Magnesiumon 04-12-2024 Magnesium [Mass/Vol] 2.1 mg/dL Normal 1.6-2.6 [facility] Comment on above: Performed By: #### L 501.2300, L100.0100, L500.4050, L501.9520, L501.5200 ####[facility] [address], [address] Partial Thromboplast Timeon 04-12-2024 aPTT Coag (Bld) [Time] 27.7 s Normal 24.1-36.2 [facility] Comment on above: Performed By: #### L 300.4310, L300.3900 ####[facility] [address] [place], [address] Phosphoruson 04-12-2024 Phosphate [Mass/Vol] 3.5 mg/dL Normal 2.5-4.9 [facility] Comment on above: Performed By: #### L 501.2300, L100.0100, L500.4050, L501.9520, L501.5200 ####[facility] [address] [place], [address] Prothrombin Time w/INRon INR Coag (PPP) [Relative time] 1.0 {INR} Normal [facility] Comment on above: Performed By: #### L 300.4310, L300.3900 ####[facility] [address] [place], [address] PT Coag (PPP) [Time] 13.1 s Normal 11.7-14.9 [facility] Comment on above: Performed By: #### L 300.4310, L300.3900 ####[facility] [address] [place], [address] Thyroid Stim Hormone (TSH)on 04-12-2024 TSH 3.360 uIU/mL Normal 0.358-3.740 [facility] Comment on above: Performed By: #### L 501.2300, L100.0100, L500.4050, L501.9520, L501.5200 ####[facility] [address] [place], [address] 12 Lead EKGon 04-11-2024 12 Lead EKG Normal [facility] BNP,B-Type NATRIURETIC PEPTI Иван 04-11-2024 Natriuretic peptide B (Bld) [Mass/Vol] 371.0 pg/mL High 0-100 [facility] Comment on above: Performed By: #### L 501.4020, L500.4050, L300.8000, L503.6620, L100.0100 ####[facility] [address] [place], [address] BRCon 04-11-2024 RC Normal [facility] Comment on above: Result Comment: [id number] OP RC TRANSFUSED 04/12/24 [id number] OP RC TRANSFUSED 04/11/24 2311 Performed By: #### B RC ####[facility] [address] [place], [address] Basic Metabolic Profile (BMP )on 04-11-2024 BUN/CRE 13.8 RATIO Normal 10-20 [facility] Comment on above: Order Comment: 'TROP ' Serial specimen #1, #2 or #3: 1 Performed By: #### L 300.3900, L500.2500, L501.4020, L100.0100, L500.3400, L300.4310, BTS, L501.2450 ####[facility] [address] [place], [address] CA,Total 8.7 mg/dL Normal 8.5-10.1 [facility] Comment on above: Order Comment: 'TROP ' Serial specimen #1, #2 or #3: 1 Performed By: #### L 300.3900, L500.2500, L501.4020, L100.0100, L500.3400, L300.4310, BTS, L501.2450 ####[facility] [address] [place], [address] Chloride [Moles/Vol] 105 mmol/L Normal 98-107 [facility] Comment on above: Order Comment: 'TROP ' Serial specimen #1, #2 or #3: 1 Performed By: #### L 300.3900, L500.2500, L501.4020, L100.0100, L500.3400, L300.4310, BTS, L501.2450 ####[facility] [address] [place], [address] CO2 [Moles/Vol] 26.0 mmol/L Normal 21.0-32.0 [facility] Comment on above: Order Comment: 'TROP ' Serial specimen #1, #2 or #3: 1 Performed By: #### L 300.3900, L500.2500, L501.4020, L100.0100, L500.3400, L300.4310, BTS, L501.2450 ####[facility] [address] [place], [address] Creatinine [Mass/Vol] 1.30 mg/dL Normal 0.70-1.30 [facility] Comment on above: Order Comment: 'TROP ' Serial specimen #1, #2 or #3: 1 Result Comment: The validity of the calculated GFR GFRAA in patients over70 years has not been determined. Clinical correlation isessential. Performed By: #### L 300.3900, L500.2500, L501.4020, L100.0100, L500.3400, L300.4310, BTS, L501.2450 ####[facility] [address] [place], [address] ECRCL 45.94 ml/min Normal [facility] Comment on above: Order Comment: 'TROP ' Serial specimen #1, #2 or #3: 1 Performed By: #### L 300.3900, L500.2500, L501.4020, L100.0100, L500.3400, L300.4310, BTS, L501.2450 ####[facility] [address] [place], [address] EST GFR - AA 68 mL/min Normal >60 [facility] Comment on above: Order Comment: 'TROP ' Serial specimen #1, #2 or #3: 1 Result Comment: Afri can Malagasy GFR Calc Performed By: #### L 300.3900, L500.2500, L501.4020, L100.0100, L500.3400, L300.4310, BTS, L501.2450 ####[facility] [address] [place], [address] GAP 10 Normal 5-15 [facility] Comment on above: Order Comment: 'TROP ' Serial specimen #1, #2 or #3: 1 Performed By: #### L 300.3900, L500.2500, L501.4020, L100.0100, L500.3400, L300.4310, BTS, L501.2450 ####[facility] [address] [place], [address] GFR/1.73 sq M.predicted among non-blacks MDRD (S/P/Bld) [Vol rate/Area] 56 mL/min/{1.73_m2} Low >60 [facility] Comment on above: Order Comment: 'TROP ' Serial specimen #1, #2 or #3: 1 Result Comment: Non- GFR Calc Performed By: #### L 300.3900, L500.2500, L501.4020, L100.0100, L500.3400, L300.4310, BTS, L501.2450 ####[facility] [address] [place], [address] Glucose [Mass/Vol] 123 mg/dL High 74-106 [facility] Comment on above: Order Comment: 'TROP ' Serial specimen #1, #2 or #3: 1 Result Comment: Fast ing Glucose result from 100 to 125 mg/dLsuggests IMPAIRED HOMEOSTASIS per A.D.A. criteria. Performed By: #### L 300.3900, L500.2500, L501.4020, L100.0100, L500.3400, L300.4310, BTS, L501.2450 ####[facility] [address] [place], [address] Potassium [Moles/Vol] 3.7 mmol/L Normal 3.5-5.1 [facility] Comment on above: Order Comment: 'TROP ' Serial specimen #1, #2 or #3: 1 Performed By: #### L 300.3900, L500.2500, L501.4020, L100.0100, L500.3400, L300.4310, BTS, L501.2450 ####[facility] [address] [place], [address] Sodium [Moles/Vol] 141 mmol/L Normal 136-145 [facility] Comment on above: Order Comment: 'TROP ' Serial specimen #1, #2 or #3: 1 Performed By: #### L 300.3900, L500.2500, L501.4020, L100.0100, L500.3400, L300.4310, BTS, L501.2450 ####[facility] [address] [place], [address] Urea nitrogen [Mass/Vol] 18 mg/dL Normal 7-18 [facility] Comment on above: Order Comment: 'TROP ' Serial specimen #1, #2 or #3: 1 Performed By: #### L 300.3900, L500.2500, L501.4020, L100.0100, L500.3400, L300.4310, BTS, L501.2450 ####[facility] [address] [place], [address] CBC W/Diff, Automatedon 04-01-2023 Absolute Lymph 1.15 X10 3/uL Normal 0.83-4.51 [facility] Comment on above: Performed By: #### L 300.3900, L500.2500, L501.4020, L100.0100, L500.3400, L300.4310, BTS, L501.2450 ####[facility] [address] [place], [address] Absolute Neut 4.0 X10 3/uL Normal 2.0-7.7 [facility] Comment on above: Performed By: #### L 300.3900, L500.2500, L501.4020, L100.0100, L500.3400, L300.4310, BTS, L501.2450 ####[facility] [address] [place], [address] Basophils/100 WBC (Bld) 0.5 % Normal 0-1 [facility] Comment on above: Performed By: #### L 300.3900, L500.2500, L501.4020, L100.0100, L500.3400, L300.4310, BTS, L501.2450 ####[facility] [address] [place], [address] Eosinophils/100 WBC (Bld) 1.3 % Normal 0-5 [facility] Comment on above: Performed By: #### L 300.3900, L500.2500, L501.4020, L100.0100, L500.3400, L300.4310, BTS, L501.2450 ####[facility] [address] [place], [address] Erythrocyte distribution width (RBC) [Ratio] 13.2 % Normal 11.6-14.6 [facility] Comment on above: Performed By: #### L 300.3900, L500.2500, L501.4020, L100.0100, L500.3400, L300.4310, BTS, L501.2450 ####[facility] [address] [place], [address] Hematocrit (Bld) [Volume fraction] 21.3 % Low 40-54 [facility] Comment on above: Performed By: #### L 300.3900, L500.2500, L501.4020, L100.0100, L500.3400, L300.4310, BTS, L501.2450 ####[facility] [address] [place], [address] Hemoglobin (Bld) [Mass/Vol] 6.7 g/dL Low 13.0-16.5 [facility] Comment on above: Performed By: #### L 300.3900, L500.2500, L501.4020, L100.0100, L500.3400, L300.4310, BTS, L501.2450 ####[facility] [address] [place], [address] IG% 0.500 Normal 0.0-0.9 [facility] Comment on above: Result Comment: IG% - Immature Granulocytes (promyelocytes, myelocytes andmetamyelocytes) > 1% indicates that a LEFT SHIFT is Present. Performed By: #### L 300.3900, L500.2500, L501.4020, L100.0100, L500.3400, L300.4310, BTS, L501.2450 ####[facility] [address] [place], [address] Lymphocytes/100 WBC (Bld) 19.0 % Normal 19-41 [facility] Comment on above: Performed By: #### L 300.3900, L500.2500, L501.4020, L100.0100, L500.3400, L300.4310, BTS, L501.2450 ####[facility] [address] [place], [address] MCH (RBC) [Entitic mass] 26.7 pg Low 27.0-32.0 [facility] Comment on above: Performed By: #### L 300.3900, L500.2500, L501.4020, L100.0100, L500.3400, L300.4310, BTS, L501.2450 ####[facility] [address] [place], [address] MCHC (RBC) [Mass/Vol] 31.5 g/dL Low 32-36 [facility] Comment on above: Performed By: #### L 300.3900, L500.2500, L501.4020, L100.0100, L500.3400, L300.4310, BTS, L501.2450 ####[facility] [address] [place], [address] MCV (RBC) [Entitic vol] 84.9 fL Normal 80-94 [facility] Comment on above: Performed By: #### L 300.3900, L500.2500, L501.4020, L100.0100, L500.3400, L300.4310, BTS, L501.2450 ####[facility] [address] [place], [address] Monocytes/100 WBC (Bld) 13.1 % High 0-10 [facility] Comment on above: Performed By: #### L 300.3900, L500.2500, L501.4020, L100.0100, L500.3400, L300.4310, BTS, L501.2450 ####[facility] [address] [place], [address] Neutrophils/100 WBC (Bld) 65.6 % Normal 47-70 [facility] Comment on above: Performed By: #### L 300.3900, L500.2500, L501.4020, L100.0100, L500.3400, L300.4310, BTS, L501.2450 ####[facility] [address] [place], [address] Nucleated RBC (Bld) [#/Vol] 0 10*3/uL Normal 0-5 [facility] Comment on above: Performed By: #### L 300.3900, L500.2500, L501.4020, L100.0100, L500.3400, L300.4310, BTS, L501.2450 ####[facility] [address] [place], [address] Platelet mean volume (Bld) [Entitic vol] 9.5 fL Normal 6.2-12.0 [facility] Comment on above: Performed By: #### L 300.3900, L500.2500, L501.4020, L100.0100, L500.3400, L300.4310, BTS, L501.2450 ####[facility] [facility] [address] [place], [address] Platelets (Bld) [#/Vol] 304 10*3/uL Normal 150-450 [facility] Comment on above: Performed By: #### L 300.3900, L500.2500, L501.4020, L100.0100, L500.3400, L300.4310, BTS, L501.2450 ####[facility] [address] [place], [address] RBC (Bld) [#/Vol] 2.51 10*6/uL Low 4.6-6.2 [facility] Comment on above: Performed By: #### L 300.3900, L500.2500, L501.4020, L100.0100, L500.3400, L300.4310, BTS, L501.2450 ####[facility] [address] [place], [address] RDW SD 40.7 fl Normal 35.1-43.9 [facility] Comment on above: Performed By: #### L 300.3900, L500.2500, L501.4020, L100.0100, L500.3400, L300.4310, BTS, L501.2450 ####[facility] [address] [place], [address] WBC (Bld) [#/Vol] 6.0 10*3/uL Normal 4.4-11.0 [facility] Comment on above: Performed By: #### L 300.3900, L500.2500, L501.4020, L100.0100, L500.3400, L300.4310, BTS, L501.2450 ####[facility] [address] [place], [address] Absolute Lymph 1.28 X10 3/uL Normal 0.83-4.51 [facility] Comment on above: Performed By: #### L 501.4020, L500.4050, L300.8000, L503.6620, L100.0100 ####[facility] [address] [place], [address] Absolute Neut 3.2 X10 3/uL Normal 2.0-7.7 [facility] Comment on above: Performed By: #### L 501.4020, L500.4050, L300.8000, L503.6620, L100.0100 ####[facility] [address] [place], [address] Basophils/100 WBC (Bld) 0.4 % Normal 0-1 [facility] Comment on above: Performed By: #### L 501.4020, L500.4050, L300.8000, L503.6620, L100.0100 ####[facility] [address] [place], [address] Eosinophils/100 WBC (Bld) 1.9 % Normal 0-5 [facility] Comment on above: Performed By: #### L 501.4020, L500.4050, L300.8000, L503.6620, L100.0100 ####[facility] [address] [place], [address] Erythrocyte distribution width (RBC) [Ratio] 13.4 % Normal 11.6-14.6 [facility] Comment on above: Performed By: #### L 501.4020, L500.4050, L300.8000, L503.6620, L100.0100 ####[facility] [address] [place], [address] Hematocrit (Bld) [Volume fraction] 23.9 % Low 40-54 [facility] Comment on above: Performed By: #### L 501.4020, L500.4050, L300.8000, L503.6620, L100.0100 ####[facility] [address] [place], [address] Hemoglobin (Bld) [Mass/Vol] 7.2 g/dL Low 13.0-16.5 [facility] Comment on above: Performed By: #### L 501.4020, L500.4050, L300.8000, L503.6620, L100.0100 ####[facility] [address] [place], [address] IG% 0.400 Normal 0.0-0.9 [facility] Comment on above: Result Comment: IG% - Immature Granulocytes (promyelocytes, myelocytes andmetamyelocytes) > 1% indicates that a LEFT SHIFT is Present. Performed By: #### L 501.4020, L500.4050, L300.8000, L503.6620, L100.0100 ####[facility] [address] [place], [address] Lymphocytes/100 WBC (Bld) 24.1 % Normal 19-41 [facility] Comment on above: Performed By: #### L 501.4020, L500.4050, L300.8000, L503.6620, L100.0100 ####[facility] [address] [place], [address] MCH (RBC) [Entitic mass] 26.2 pg Low 27.0-32.0 [facility] Comment on above: Performed By: #### L 501.4020, L500.4050, L300.8000, L503.6620, L100.0100 ####[facility] [address] [place], [address] MCHC (RBC) [Mass/Vol] 30.1 g/dL Low 32-36 [facility] Comment on above: Performed By: #### L 501.4020, L500.4050, L300.8000, L503.6620, L100.0100 ####[facility] [address] [place], [address] MCV (RBC) [Entitic vol] 86.9 fL Normal 80-94 [facility] Comment on above: Performed By: #### L 501.4020, L500.4050, L300.8000, L503.6620, L100.0100 ####[facility] [address] [place], [address] Monocytes/100 WBC (Bld) 13.6 % High 0-10 [facility] Comment on above: Performed By: #### L 501.4020, L500.4050, L300.8000, L503.6620, L100.0100 ####[facility] [address] [place], [address] Neutrophils/100 WBC (Bld) 59.6 % Normal 47-70 [facility] Comment on above: Performed By: #### L 501.4020, L500.4050, L300.8000, L503.6620, L100.0100 ####[facility] [address] [place], [address] Nucleated RBC (Bld) [#/Vol] 0 10*3/uL Normal 0-5 [facility] Comment on above: Performed By: #### L 501.4020, L500.4050, L300.8000, L503.6620, L100.0100 ####[facility] [address] [place], [address] Platelet mean volume (Bld) [Entitic vol] 9.8 fL Normal 6.2-12.0 [facility] Comment on above: Performed By: #### L 501.4020, L500.4050, L300.8000, L503.6620, L100.0100 ####[facility] [address] [place], [address] Platelets (Bld) [#/Vol] 321 10*3/uL Normal 150-450 [facility] Comment on above: Performed By: #### L 501.4020, L500.4050, L300.8000, L503.6620, L100.0100 ####[facility] [address] [place], [address] RBC (Bld) [#/Vol] 2.75 10*6/uL Low 4.6-6.2 [facility] Comment on above: Performed By: #### L 501.4020, L500.4050, L300.8000, L503.6620, L100.0100 ####[facility] [address] [place], [address] RDW SD 42.7 fl Normal 35.1-43.9 [facility] Comment on above: Performed By: #### L 501.4020, L500.4050, L300.8000, L503.6620, L100.0100 ####[facility] [address] [place], [address] WBC (Bld) [#/Vol] 5.3 10*3/uL Normal 4.4-11.0 [facility] Comment on above: Performed By: #### L 501.4020, L500.4050, L300.8000, L503.6620, L100.0100 ####[facility] [address] [place], [address] CTA Chst, Abd, Pel W and/or WOon 04-11-2024 CTA Chst, Abd, Pel W and/or WO Normal [facility] Comprehensive Metabolic Prof ilon 04-11-2024 Albumin [Mass/Vol] 3.5 g/dL Normal 3.2-5.0 [facility] Comment on above: Order Comment: 1 Performed By: #### L 501.4020, L500.4050, L300.8000, L503.6620, L100.0100 ####[facility] [address] [place], [address] Albumin/Globulin [Mass ratio] 1.0 {ratio} Normal 0.9-2.4 [facility] Comment on above: Order Comment: 1 Performed By: #### L 501.4020, L500.4050, L300.8000, L503.6620, L100.0100 ####[facility] [address] [place], [address] ALK P 89 U/L Normal 45-117 [facility] Comment on above: Order Comment: 1 Performed By: #### L 501.4020, L500.4050, L300.8000, L503.6620, L100.0100 ####[facility] [address] [place], [address] ALT [Catalytic activity/Vol] 19 U/L Normal 16-61 [facility] Comment on above: Order Comment: 1 Performed By: #### L 501.4020, L500.4050, L300.8000, L503.6620, L100.0100 ####[facility] [address] [place], [address] AST [Catalytic activity/Vol] 19 U/L Normal 15-37 [facility] Comment on above: Order Comment: 1 Performed By: #### L 501.4020, L500.4050, L300.8000, L503.6620, L100.0100 ####[facility] [address] [place], [address] Bilirubin [Mass/Vol] 0.30 mg/dL Normal 0.20-1.00 [facility] Comment on above: Order Comment: 1 Result Comment: For patients on eltrombopag therapy, use of Dimension Kamas TBIL is not recommended. Performed By: #### L 501.4020, L500.4050, L300.8000, L503.6620, L100.0100 ####[facility] [address] [place], [address] BUN/CRE 13.2 RATIO Normal 10-20 [facility] Comment on above: Order Comment: 1 Performed By: #### L 501.4020, L500.4050, L300.8000, L503.6620, L100.0100 ####[facility] [address] [place], [address] CA,Total 9.2 mg/dL Normal 8.5-10.1 [facility] Comment on above: Order Comment: 1 Performed By: #### L 501.4020, L500.4050, L300.8000, L503.6620, L100.0100 ####[facility] [address] [place], [address] Chloride [Moles/Vol] 104 mmol/L Normal 98-107 [facility] Comment on above: Order Comment: 1 Performed By: #### L 501.4020, L500.4050, L300.8000, L503.6620, L100.0100 ####[facility] [address] [place], [address] CO2 [Moles/Vol] 26.0 mmol/L Normal 21.0-32.0 [facility] Comment on above: Order Comment: 1 Performed By: #### L 501.4020, L500.4050, L300.8000, L503.6620, L100.0100 ####[facility] [address] [place], [address] Creatinine [Mass/Vol] 1.14 mg/dL Normal 0.70-1.30 [facility] Comment on above: Order Comment: 1 Result Comment: The validity of the calculated GFR GFRAA in patients over70 years has not been determined. Clinical correlation isessential. Performed By: #### L 501.4020, L500.4050, L300.8000, L503.6620, L100.0100 ####[facility] [address] [place], [address] EST GFR - AA 80 mL/min Normal >60 [facility] Comment on above: Order Comment: 1 Result Comment: Afri can Malagasy GFR Calc Performed By: #### L 501.4020, L500.4050, L300.8000, L503.6620, L100.0100 ####[facility] [address] [place], [address] GAP 6 Normal 5-15 [facility] Comment on above: Order Comment: 1 Performed By: #### L 501.4020, L500.4050, L300.8000, L503.6620, L100.0100 ####[facility] [address] [place], [address] GFR/1.73 sq M.predicted among non-blacks MDRD (S/P/Bld) [Vol rate/Area] 66 mL/min/{1.73_m2} Normal >60 [facility] Comment on above: Order Comment: 1 Result Comment: Non- GFR Calc Performed By: #### L 501.4020, L500.4050, L300.8000, L503.6620, L100.0100 ####[facility] [address] [place], [address] Globulin (S) [Mass/Vol] 3.4 g/dL Normal 2.2-4.2 [facility] Comment on above: Order Comment: 1 Performed By: #### L 501.4020, L500.4050, L300.8000, L503.6620, L100.0100 ####[facility] [address] [place], [address] Glucose [Mass/Vol] 108 mg/dL High 74-106 [facility] Comment on above: Order Comment: 1 Result Comment: Fast ing Glucose result from 100 to 125 mg/dLsuggests IMPAIRED HOMEOSTASIS per A.D.A. criteria. Performed By: #### L 501.4020, L500.4050, L300.8000, L503.6620, L100.0100 ####[facility] [address] [place], [address] Potassium [Moles/Vol] 3.9 mmol/L Normal 3.5-5.1 [facility] Comment on above: Order Comment: 1 Performed By: #### L 501.4020, L500.4050, L300.8000, L503.6620, L100.0100 ####[facility] [address] [place], [address] Sodium [Moles/Vol] 136 mmol/L Normal 136-145 [facility] Comment on above: Order Comment: 1 Performed By: #### L 501.4020, L500.4050, L300.8000, L503.6620, L100.0100 ####[facility] [address] [place], [address] T PROT 6.9 g/dL Normal 6.4-8.2 [facility] Comment on above: Order Comment: 1 Performed By: #### L 501.4020, L500.4050, L300.8000, L503.6620, L100.0100 ####[facility] [address] [place], [address] Urea nitrogen [Mass/Vol] 15 mg/dL Normal 7-18 [facility] Comment on above: Order Comment: 1 Performed By: #### L 501.4020, L500.4050, L300.8000, L503.6620, L100.0100 ####[facility] [address] [place], [address] D-Dimer Quantitative (DVT/PE )on 04-11-2024 D-DIMER QUANT 2.00 FEU/ug/m Invalid Interpretation Code 0.27-0.49 [facility] Comment on above: Result Comment: D-Di gita ELEVATED (>0.49): Additional studies and clinicalassessments are indicated to conclude diagnosis of:Deep Vein Thrombosis (DVT) or Pulmonary Embolism (PE)CRITICAL VALUE CALLED TO MARIELA OLSON04/11/24 1821 Gudelia Bolanos.RESULTS READ BACK BY SAME. Performed By: #### L 501.4020, L500.4050, L300.8000, L503.6620, L100.0100 ####[facility] [address] [place], [address] Emergency Department Summary on 04-11-2024 Emergency Department Summary Normal [facility] H AND P Exam - Hospitaliston 04-11-2024 H&P Exam - Hospitalist Normal [facility] L501.4020on 04-11-2024 TROPONIN-I HS 124 pg/mL Invalid Interpretation Code 3.0-78.0 [facility] Comment on above: Order Comment: 'TROP ' Serial specimen #1, #2 or #3: 1 Result Comment: Debi vieyra Note: New Test Units and Gender Specific Reference Ranges. For more information see Policy Stat Procedure Kamas High Sensitivity Troponin (TNIH) and attachments. Performed By: #### L 300.3900, L500.2500, L501.4020, L100.0100, L500.3400, L300.4310, BTS, L501.2450 ####[facility] [address] [place], [address] TROPONIN-I HS 123 pg/mL Invalid Interpretation Code 3.0-78.0 [facility] Comment on above: Order Comment: 1 Result Comment: CRIT ICAL VALUE CALLED TO MARIELA OLSON04/11/24 1822 Gudelia Bolanos.RESULTS READ BACK BY SAME. Please Note: New Test Units and Gender Specific Reference Ranges. For more information see Policy Stat Procedure Kamas High Sensitivity Troponin (TNIH) and attachments. Performed By: #### L 501.4020, L500.4050, L300.8000, L503.6620, L100.0100 ####[facility] [address] [place], [address] Lipaseon 04-11-2024 Lipase [Catalytic activity/Vol] 29 U/L Normal 13-75 [facility] Comment on above: Order Comment: 'TROP ' Serial specimen #1, #2 or #3: 1 Result Comment: Debi vieyra note:LIPASE revised reference range effective 22.New Lipase methodology. Expected to produce lower valuesthan the previous assay method.NEW Reference Range: 13 - 75 U/L Performed By: #### L 300.3900, L500.2500, L501.4020, L100.0100, L500.3400, L300.4310, BTS, L501.2450 ####[facility] [address] [place], [address] Liver Profileon 04-11-2024 Albumin [Mass/Vol] 3.4 g/dL Normal 3.2-5.0 [facility] Comment on above: Order Comment: 'TROP ' Serial specimen #1, #2 or #3: 1 Performed By: #### L 300.3900, L500.2500, L501.4020, L100.0100, L500.3400, L300.4310, BTS, L501.2450 ####[facility] [address] [place], [address] ALK P 87 U/L Normal 45-117 [facility] Comment on above: Order Comment: 'TROP ' Serial specimen #1, #2 or #3: 1 Performed By: #### L 300.3900, L500.2500, L501.4020, L100.0100, L500.3400, L300.4310, BTS, L501.2450 ####[facility] [address] [place], [address] ALT [Catalytic activity/Vol] 18 U/L Normal 16-61 [facility] Comment on above: Order Comment: 'TROP ' Serial specimen #1, #2 or #3: 1 Performed By: #### L 300.3900, L500.2500, L501.4020, L100.0100, L500.3400, L300.4310, BTS, L501.2450 ####[facility] [address] [place], [address] AST [Catalytic activity/Vol] 15 U/L Normal 15-37 [facility] Comment on above: Order Comment: 'TROP ' Serial specimen #1, #2 or #3: 1 Performed By: #### L 300.3900, L500.2500, L501.4020, L100.0100, L500.3400, L300.4310, BTS, L501.2450 ####[facility] [address] [place], [address] Bilirubin [Mass/Vol] 0.30 mg/dL Normal 0.20-1.00 [facility] Comment on above: Order Comment: 'TROP ' Serial specimen #1, #2 or #3: 1 Result Comment: For patients on eltrombopag therapy, use of Dimension Kamas TBIL is not recommended. Performed By: #### L 300.3900, L500.2500, L501.4020, L100.0100, L500.3400, L300.4310, BTS, L501.2450 ####[facility] [address] [place], [address] Bilirubin.direct [Mass/Vol] 0.09 mg/dL Normal 0.00-0.30 [facility] Comment on above: Order Comment: 'TROP ' Serial specimen #1, #2 or #3: 1 Performed By: #### L 300.3900, L500.2500, L501.4020, L100.0100, L500.3400, L300.4310, BTS, L501.2450 ####[facility] [address] [place], [address] Globulin (S) [Mass/Vol] 3.2 g/dL Normal 2.2-4.2 [facility] Comment on above: Order Comment: 'TROP ' Serial specimen #1, #2 or #3: 1 Performed By: #### L 300.3900, L500.2500, L501.4020, L100.0100, L500.3400, L300.4310, BTS, L501.2450 ####[facility] [address] [place], [address] T PROT 6.6 g/dL Normal 6.4-8.2 [facility] Comment on above: Order Comment: 'TROP ' Serial specimen #1, #2 or #3: 1 Performed By: #### L 300.3900, L500.2500, L501.4020, L100.0100, L500.3400, L300.4310, BTS, L501.2450 ####[facility] [address] [place], [place], [address] Partial Thromboplast Timeon 04-11-2024 aPTT Coag (Bld) [Time] 27.9 s Normal 24.1-36.2 [facility] Comment on above: Performed By: #### L 300.3900, L500.2500, L501.4020, L100.0100, L500.3400, L300.4310, BTS, L501.2450 ####[facility] [address] [place], [place], [address] Prothrombin Time w/INRon INR Coag (PPP) [Relative time] 1.1 {INR} Normal [facility] Comment on above: Performed By: #### L 300.3900, L500.2500, L501.4020, L100.0100, L500.3400, L300.4310, BTS, L501.2450 ####[facility] [address] [place], [place], [address] PT Coag (PPP) [Time] 13.8 s Normal 11.7-14.9 [facility] Comment on above: Performed By: #### L 300.3900, L500.2500, L501.4020, L100.0100, L500.3400, L300.4310, BTS, L501.2450 ####[facility] [address] [place], [place], [address] Type AND Screenon 04-11-2024 Ab SCREEN GEL Negative Normal [facility] Comment on above: Order Comment: A Performed By: #### L 300.3900, L500.2500, L501.4020, L100.0100, L500.3400, L300.4310, BTS, L501.2450 ####[facility] [address] [place], [address] ABO and Rh group Nom (Bld) Blood group O Rh(D) positive Normal [facility] Comment on above: Order Comment: A Performed By: #### L 300.3900, L500.2500, L501.4020, L100.0100, L500.3400, L300.4310, BTS, L501.2450 ####[facility] [address] [place], [address] MR/BMS.BVSon 02-15-2024 MR/BMS.BVS Normal [facility] CREATININE FINGERSTICKon CREATININE WB < 1.0 Normal 0.70-1.30 [facility] Comment on above: Performed By: #### L 9100.0200 ####[facility] [address] [place], [address] EGFR WB > 60.0000 Normal >60 [facility] Comment on above: Performed By: #### L 9100.0200 ####[facility] [address] [place], [address] CTA Abd w/Runoff W/WO Contra ston 02-03-2024 CTA Abd w/Runoff W/WO Contrast Normal [facility] Absolute lymphocyte countOrd ered By: Stevie Vela on 12-11-2023 Lymphocytes Auto (Unsp spec) [#/Vol] 1.38 10*3/uL 0.83-4.51 [facility] Automated lymphocyte count a s percentage of total leukocytesOrdered By: Steive Vela on 12-11-2023 Lymphocytes/100 WBC Auto (Unsp spec) 23.2 % 19-41 [facility] Basophil percentageOrdered B y: Stevie Vela on 12-11-2023 Basophils/100 WBC (Bld) 0.5 % 0-1 [facility] Chloride [Moles/Vol] 105 mmol/L 98-107 [facility] Eosinophils/100 WBC (Bld) 2.2 % 0-5 [facility] Glucose [Mass/Vol] 107 mg/dL 74-106 [facility] Comment on above: Fasting Glucose resu lt from 100 to 125 mg/dL suggests IMPAIRED HOMEOSTASIS per A.D.A. criteria. Hemoglobin (Bld) [Mass/Vol] 11.7 g/dL 13.0-16.5 [facility] Monocytes/100 WBC (Bld) 9.4 % 0-10 [facility] Neutrophils (Bld) [#/Vol] 3.8 10*3/uL 2.0-7.7 [facility] Neutrophils/100 WBC (Bld) 64.4 % 47-70 [facility] Potassium [Moles/Vol] 4.1 mmol/L 3.5-5.1 [facility] Sodium [Moles/Vol] 138 mmol/L 136-145 [facility] WBC (Bld) [#/Vol] 5.9 10*3/uL 4.4-11.0 [facility] Determination of erythrocyte mean corpuscular volume (MCV)Ordered By: Stevie Vela on 12-11-2023 MCV (RBC) [Entitic vol] 90.7 fL 80-94 [facility] Erythrocyte distribution wid th ratioOrdered By: Stevie Vela on 12-11-2023 Erythrocyte distribution width (RBC) [Ratio] 12.8 % 11.6-14.6 [facility] Erythrocyte distribution wid th standard deviationOrdered By: Stevie Vela on 12-11-2023 Erythrocyte distribution width (RBC) [Entitic vol] 41.6 fL 35.1-43.9 [facility] Hematocrit Auto (Bld) [Volum e fraction]Ordered By: Stevie Vela on 12-11-2023 Hematocrit (Bld) [Volume fraction] 35.1 % 40-54 [facility] Immature granulocytes/100 WB C Auto (Bld)Ordered By: Stevie Vela on 12-11-2023 Immature granulocytes/100 WBC (Bld) 0.300 % 0.0-0.9 [facility] Comment on above: IG% - Immature Granu locytes (promyelocytes, myelocytes and metamyelocytes) > 1% indicates that a LEFT SHIFT is Present. Laboratory - Chemistry and C hemistry - challengeOrdered By: Stevie Vela on 12-11-2023 CO2 [Moles/Vol] 27.0 mmol/L 21.0-32.0 [facility] Urea nitrogen/Creatinine [Mass ratio] 20.3 mg/mg 10-20 [facility] Laboratory - Hematology and Cell countsOrdered By: Stevie Vela on 12-11-2023 MCH (RBC) [Entitic mass] 30.2 pg 27.0-32.0 [facility] MCHC (RBC) [Mass/Vol] 33.3 g/dL 32-36 [facility] Nucleated RBC/100 WBC (Bld) [Ratio] 0 % 0-5 [facility] Platelet mean volume (Bld) [Entitic vol] 9.8 fL 6.2-12.0 [facility] Platelets (Bld) [#/Vol] 233 10*3/uL 150-450 [facility] No Panel InformationOrdered By: Stevie Vela on 12-11-2023 Estimated Creatinine Clearance Calc 54.39 ml/min [facility] Estimated GFR (MDRD) Amer 76 mL/min >60 [facility] Comment on above: GFR Calc Estimated GFR (MDRD) Non-Af Amer 63 mL/min >60 [facility] Comment on above: Non- GFR Calc Troponin I High Sensitivity 77 pg/mL 3.0-78.0 [facility] Comment on above: Please Note: New Wendy t Units and Gender Specific Reference Ranges. For more information see Policy Stat Procedure Kamas High Sensitivity Troponin (TNIH) and attachments. RBC Auto (Bld) [#/Vol]Ordere d By: Stevie Vela on 12-11-2023 RBC (Bld) [#/Vol] 3.87 10*6/uL 4.6-6.2 [facility] Serum or plasma calcium shagufta urement (mass/volume)Ordered By: Stevie Vela on 12-11-2023 Calcium [Mass/Vol] 8.8 mg/dL 8.5-10.1 [facility] Serum or plasma creatinine m easurement (mass/volume)Ordered By: Stevie Vela on 12-11-2023 Creatinine [Mass/Vol] 1.18 mg/dL 0.70-1.30 [facility] Comment on above: The validity of the calculated GFR & GFRAA in patients over 70 years has not been determined. Clinical correlation is essential. Serum or plasma urea nitroge n measurement (mass/volume)Ordered By: Stevie Vela on 12-11-2023 Urea nitrogen [Mass/Vol] 24 mg/dL 7-18 [facility] Thin prep Papanicolaou smear with manual screeningOrdered By: Stevie Vela on 12-11-2023 Thin prep Papanicolaou smear with manual screening 6 5-15 [facility] Basophil percentageOrdered B y: Neville Islas on 08-22-2023 Testosterone [Mass/Vol] 374 ng/dL 264-916 [facility] Comment on above: Adult male reference interval is based on a population ofhealthy nonobese males (BMI <30) between 19 and 39 yearsold. Julian et.al. JCEM 2017,102;0590-3642. PMID:[id number]. Free testosterone percentage Ordered By: Neville Islas on 08-22-2023 Testosterone Free/Testosterone.tota l [Mass fraction] 1.85 % 1.50-4.20 [facility] Laboratory - Chemistry and C hemistry - challengeOrdered By: Neville Islas on 08-22-2023 Prolactin IA Qn 11.4 ng/mL [facility] Comment on above: NORMAL REFERENCE RAN GES FEMALE NON- 2.2 - 30.3 ng/mL 8.1 - 347.6 ng/mL POST-MENOPAUSAL 0.7 - 31.5 ng/mL MALE 2.5 - 17.4 ng/mL Transferrin [Mass/Vol] 250 mg/dL 177-329 [facility] Comment on above: Performed at: [address] [id number] Director: Jian Paredes PhD, Phone: [phone] at: - [facility] [address] [id number] Director: Tejal Dumas MD, Phone: [phone] Serum or plasma testosterone free measurement (mass/volume)Ordered By: Neville Islas on 08-22-2023 Testosterone Free [Mass/Vol] 6.92 ng/dL 5.00-21.00 [facility] Serum or plasma thyroid stim ulating hormone (TSH) measurement (units/volume)Ordered By: Neville Islas on 08-22-2023 TSH Qn 4.59 uIU/mL 0.358-3.74 [facility] Absolute lymphocyte countOrd ered By: Darrel Sanders on 08-16-2023 Lymphocytes Auto (Unsp spec) [#/Vol] 2.04 10*3/uL 0.83-4.51 [facility] Basophil percentageOrdered B y: Darrel Sanders on 08-16-2023 Basophil percentage 3.1 mg/dL 2.5-4.9 [facility] Basophils/100 WBC (Bld) 0.3 % 0-1 [facility] Bilirubin [Mass/Vol] 0.80 mg/dL 0.20-1.00 [facility] Comment on above: For patients on eltr ombopag therapy, use of Dimension Kamas TBIL is not recommended. Chloride [Moles/Vol] 105 mmol/L 98-107 [facility] Cholesterol [Mass/Vol] 203 mg/dL <200 [facility] Comment on above: <200 mg/dL Desirable 200-240 mg/dL Borderline >240 mg/dL High Risk Eosinophils/100 WBC (Bld) 1.9 % 0-5 [facility] Glucose [Mass/Vol] 91 mg/dL 74-106 [facility] Neutrophils (Bld) [#/Vol] 3.5 10*3/uL 2.0-7.7 [facility] Neutrophils/100 WBC (Bld) 56.6 % 47-70 [facility] Potassium [Moles/Vol] 3.7 mmol/L 3.5-5.1 [facility] Protein [Mass/Vol] 7.3 g/dL 6.4-8.2 [facility] Sodium [Moles/Vol] 137 mmol/L 136-145 [facility] Triglyceride [Mass/Vol] 105 mg/dL <199 [facility] Comment on above: The drugs N-Acetylcy steine and Metamizole may falsely depress this assay.Serum Triglycerides Reference Interval Normal <150 mg/dL Borderline high 150 - 199 mg/dL High 200 - 499 mg/dL Very High > or = 500 mg/dL WBC (Bld) [#/Vol] 6.2 10*3/uL 4.4-11.0 [facility] Blood erythrocytes count (nu mber/volume)Ordered By: Darrel Sanders on 08-16-2023 RBC (Bld) [#/Vol] 4.25 10*6/uL 4.6-6.2 [facility] Blood hemoglobin measurement (mass/volume)Ordered By: Darrel Sanders on 08-16-2023 Hemoglobin (Bld) [Mass/Vol] 12.7 g/dL 13.0-16.5 [facility] Blood lymphocytes/100 leukoc ytesOrdered By: Darrel Sanders on 08-16-2023 Lymphocytes/100 WBC (Bld) 32.7 % 19-41 [facility] Blood monocytes/100 leukocyt esOrdered By: Darrel Sanders on 08-16-2023 Monocytes/100 WBC (Bld) 8.3 % 0-10 [facility] Blood platelet mean volumeOr dered By: Darrel Sanders on 08-16-2023 Platelet mean volume (Bld) [Entitic vol] 9.9 fL 6.2-12.0 [facility] Determination of erythrocyte mean corpuscular volume (MCV)Ordered By: Darrel Sanders on 08-16-2023 MCV (RBC) [Entitic vol] 89.2 fL 80-94 [facility] Hematocrit Auto (Bld) [Volum e fraction]Ordered By: Darrel Sanders on 08-16-2023 Hematocrit (Bld) [Volume fraction] 37.9 % 40-54 [facility] Laboratory - Chemistry and C hemistry - challengeOrdered By: Darrel Sanders on 08-16-2023 ALP [Catalytic activity/Vol] 87 U/L 45-117 [facility] ALT [Catalytic activity/Vol] 28 U/L 16-61 [facility] CO2 [Moles/Vol] 26.0 mmol/L 21.0-32.0 [facility] Globulin (S) [Mass/Vol] 3.5 g/dL 2.2-4.2 [facility] Magnesium [Mass/Vol] 2.2 mg/dL 1.6-2.6 [facility] Urea nitrogen/Creatinine [Mass ratio] 18.6 mg/mg 10-20 [facility] Laboratory - Hematology and Cell countsOrdered By: Darrel Sanders on 08-16-2023 Erythrocyte distribution width (RBC) [Entitic vol] 43.4 fL 35.1-43.9 [facility] Erythrocyte distribution width (RBC) [Ratio] 13.3 % 11.6-14.6 [facility] Immature granulocytes/100 WBC (Bld) 0.200 % 0.0-0.9 [facility] Comment on above: IG% - Immature Granu locytes (promyelocytes, myelocytes and metamyelocytes) > 1% indicates that a LEFT SHIFT is Present. MCH (RBC) [Entitic mass] 29.9 pg 27.0-32.0 [facility] Nucleated RBC/100 WBC (Bld) [Ratio] 0 % 0-5 [facility] MCHC Auto (RBC) [Mass/Vol]Or dered By: Darrel Sanders on 08-16-2023 MCHC (RBC) [Mass/Vol] 33.5 g/dL 32-36 [facility] No Panel InformationOrdered By: Darrel aSnders on 08-16-2023 Estimated Creatinine Clearance Calc 58.72 ml/min [facility] Estimated GFR (MDRD) Amer 91 mL/min >60 [facility] Comment on above: GFR Calc Estimated GFR (MDRD) Non-Af Amer 75 mL/min >60 [facility] Comment on above: Non- GFR Calc D-Dimer Quantitative (PE/DVT) 0.79 FEU/ug/m 0.27-0.49 [facility] Comment on above: D-Dimer ELEVATED (>0 .49): Additional studies and clinicalassessments are indicated to conclude diagnosis of:Deep Vein Thrombosis (DVT) or Pulmonary Embolism (PE)CRITICAL VALUE VERIFIED. CALLED TO [id number]/24 [id number] Quintin Cardenas.RESULTS READ BACK BY SAME. Troponin I High Sensitivity 96 pg/mL 3.0-78.0 [facility] Comment on above: Please Note: New Wendy t Units and Gender Specific Reference Ranges. For more information see Policy Stat Procedure [facility] High Sensitivity Troponin (TNIH) and attachments. Platelets bldOrdered By: Esdras Sanders on 08-16-2023 Platelets (Bld) [#/Vol] 250 10*3/uL 150-450 [facility] Serum or plasma albumin shagufta urement (mass/volume)Ordered By: Darrel Sanders on 08-16-2023 Albumin [Mass/Vol] 3.8 g/dL 3.2-5.0 [facility] Serum or plasma albumin/glob ulin mass ratioOrdered By: Darrel Sanders on 08-16-2023 Albumin/Globulin [Mass ratio] 1.1 {ratio} 0.9-2.4 [facility] Serum or plasma calcium shagufta urement (mass/volume)Ordered By: Darrel Sanders on 08-16-2023 Calcium [Mass/Vol] 9.4 mg/dL 8.5-10.1 [facility] Serum or plasma cholesterol in HDL measurement (mass/volume)Ordered By: Darrel Sanders on 08-16-2023 Cholesterol in HDL [Mass/Vol] 59 mg/dL >40 [facility] Comment on above: The drugs N-Acetylcy steine and Metamizole may falsely depress this assay. Reference Range HDL <40 mg/dL Low HDL Cholesterol HDL >or= 60 mg/dL High HDL Cholesterol Serum or plasma cholesterol in VLDL measurement (mass/volume)Ordered By: Darrel Sanders on 08-16-2023 Cholesterol in VLDL [Mass/Vol] 21 mg/dL 5-40 [facility] Serum or plasma creatinine m easurement (mass/volume)Ordered By: Darrel Sanders on 08-16-2023 Creatinine [Mass/Vol] 1.02 mg/dL 0.70-1.30 [facility] Comment on above: The validity of the calculated GFR & GFRAA in patients over 70 years has not been determined. Clinical correlation is essential. Serum or plasma low density lipoprotein (LDL) cholesterol measurement (mass/volume)Ordered By: Darrel Sanders on 08-16-2023 Cholesterol in LDL [Mass/Vol] 123 mg/dL 0-130 [facility] Serum or plasma thyroid stim ulating hormone (TSH) measurement (units/volume)Ordered By: Lucy Polanco on 08-16-2023 TSH Qn 4.27 uIU/mL 0.358-3.74 [facility] Serum or plasma urea nitroge n measurement (mass/volume)Ordered By: Darrel Sanders on 08-16-2023 Urea nitrogen [Mass/Vol] 19 mg/dL 7-18 [facility] Thin prep Papanicolaou smear with manual screeningOrdered By: Darrel Sanders on 08-16-2023 Thin prep Papanicolaou smear with manual screening 25 U/L 15-37 [facility] Thin prep Papanicolaou smear with manual screening 6 5-15 [facility] Thin prep Papanicolaou smear with manual screeningOrdered By: Lucy Polanco on 08-16-2023 Thin prep Papanicolaou smear with manual screening 0.97 ng/dL 0.76-1.46 [facility] Absolute lymphocyte countOrd ered By: Faustina Garrison on 08-15-2023 Lymphocytes Auto (Unsp spec) [#/Vol] 1.56 10*3/uL 0.83-4.51 [facility] Basophil percentageOrdered B y: Faustina Garrison on 08-15-2023 Basophil percentage 0 SEEN /hpf 0-5 [facility] Basophils/100 WBC (Bld) 0.5 % 0-1 [facility] Bilirubin [Mass/Vol] 0.60 mg/dL 0.20-1.00 [facility] Comment on above: For patients on eltr ombopag therapy, use of Dimension Kamas TBIL is not recommended. Chloride [Moles/Vol] 100 mmol/L 98-107 [facility] Eosinophils/100 WBC (Bld) 2.9 % 0-5 [facility] Glucose [Mass/Vol] 99 mg/dL 74-106 [facility] Neutrophils (Bld) [#/Vol] 3.9 10*3/uL 2.0-7.7 [facility] Neutrophils/100 WBC (Bld) 62.4 % 47-70 [facility] Potassium [Moles/Vol] 4.7 mmol/L 3.5-5.1 [facility] Comment on above: Slight Hemolysis, Re sult may be falsely increased. Protein [Mass/Vol] 7.6 g/dL 6.4-8.2 [facility] Sodium [Moles/Vol] 136 mmol/L 136-145 [facility] WBC (Bld) [#/Vol] 6.2 10*3/uL 4.4-11.0 [facility] Bilirubin Test strip Ql (U)O rdered By: Faustina Garrison on 08-15-2023 Bilirubin Ql (U) Negative Negative [facility] Blood erythrocytes count (nu mber/volume)Ordered By: Faustina Garrison on 08-15-2023 RBC (Bld) [#/Vol] 4.26 10*6/uL 4.6-6.2 [facility] Blood hemoglobin measurement (mass/volume)Ordered By: Faustina Garrison on 08-15-2023 Hemoglobin (Bld) [Mass/Vol] 13.2 g/dL 13.0-16.5 [facility] Blood lymphocytes/100 leukoc ytesOrdered By: Faustina Garrison on 08-15-2023 Lymphocytes/100 WBC (Bld) 25.1 % 19-41 [facility] Blood monocytes/100 leukocyt esOrdered By: Faustina Garrison on 08-15-2023 Monocytes/100 WBC (Bld) 8.8 % 0-10 [facility] Blood platelet mean volumeOr dered By: Faustina Garrison on 08-15-2023 Platelet mean volume (Bld) [Entitic vol] 9.9 fL 6.2-12.0 [facility] Determination of erythrocyte mean corpuscular volume (MCV)Ordered By: Faustina Garrison on 08-15-2023 MCV (RBC) [Entitic vol] 90.6 fL 80-94 [facility] Hematocrit Auto (Bld) [Volum e fraction]Ordered By: Faustina Garrison on 08-15-2023 Hematocrit (Bld) [Volume fraction] 38.6 % 40-54 [facility] Ketones Test strip Ql (U)Ord ered By: Faustina Garrison on 08-15-2023 Ketones Ql (U) Negative Negative [facility] Laboratory - Chemistry and C hemistry - challengeOrdered By: Faustina Garrison on 08-15-2023 ALP [Catalytic activity/Vol] 97 U/L 45-117 [facility] ALT [Catalytic activity/Vol] 31 U/L 16-61 [facility] CO2 [Moles/Vol] 28.0 mmol/L 21.0-32.0 [facility] Globulin (S) [Mass/Vol] 3.7 g/dL 2.2-4.2 [facility] Magnesium [Mass/Vol] 2.0 mg/dL 1.6-2.6 [facility] Comment on above: Slight Hemolysis, Re sult may be falsely increased. Urea nitrogen/Creatinine [Mass ratio] 18.0 mg/mg 10-20 [facility] Laboratory - Hematology and Cell countsOrdered By: Faustina Garrison on 08-15-2023 Erythrocyte distribution width (RBC) [Entitic vol] 43.6 fL 35.1-43.9 [facility] Erythrocyte distribution width (RBC) [Ratio] 13.2 % 11.6-14.6 [facility] Immature granulocytes/100 WBC (Bld) 0.300 % 0.0-0.9 [facility] Comment on above: IG% - Immature Granu locytes (promyelocytes, myelocytes and metamyelocytes) > 1% indicates that a LEFT SHIFT is Present. MCH (RBC) [Entitic mass] 31.0 pg 27.0-32.0 [facility] Nucleated RBC/100 WBC (Bld) [Ratio] 0 % 0-5 [facility] MCHC Auto (RBC) [Mass/Vol]Or dered By: Faustina Garrison on 08-15-2023 MCHC (RBC) [Mass/Vol] 34.2 g/dL 32-36 [facility] Mucus LM Ql (Urine sed)Order ed By: Faustina Garrison on 08-15-2023 Mucus Ql (Urine sed) 0 SEEN /hpf [facility] Nitrite Test strip Ql (U)Ord ered By: Faustina Garrison on 08-15-2023 Nitrite Ql (U) Negative Negative [facility] No Panel InformationOrdered By: Faustina Garrison on 08-15-2023 Troponin I High Sensitivity 85 pg/mL 3.0-78.0 [facility] Comment on above: Please Note: New Wendy t Units and Gender Specific Reference Ranges. For more information see Policy Stat Procedure [facility] High Sensitivity Troponin (TNIH) and attachments. Estimated Creatinine Clearance Calc 52.21 ml/min [facility] Estimated GFR (MDRD) Amer 82 mL/min >60 [facility] Comment on above: GFR Calc Estimated GFR (MDRD) Non-Af Amer 68 mL/min >60 [facility] Comment on above: Non- GFR Calc Platelets bldOrdered By: Natali Garrison on 08-15-2023 Platelets (Bld) [#/Vol] 242 10*3/uL 150-450 [facility] Protein Test strip Ql (U)Ord ered By: Faustina Garrison on 08-15-2023 Protein Ql (U) Negative Negative [facility] Serum or plasma albumin shagufta urement (mass/volume)Ordered By: Faustina Garrison on 08-15-2023 Albumin [Mass/Vol] 3.9 g/dL 3.2-5.0 [facility] Serum or plasma albumin/glob ulin mass ratioOrdered By: Faustina Garrison on 08-15-2023 Albumin/Globulin [Mass ratio] 1.1 {ratio} 0.9-2.4 [facility] Serum or plasma calcium shagufta urement (mass/volume)Ordered By: Faustina Garrison on 08-15-2023 Calcium [Mass/Vol] 9.3 mg/dL 8.5-10.1 [facility] Serum or plasma creatinine m easurement (mass/volume)Ordered By: Faustina Garrison on 08-15-2023 Creatinine [Mass/Vol] 1.11 mg/dL 0.70-1.30 [facility] Comment on above: The validity of the calculated GFR & GFRAA in patients over 70 years has not been determined. Clinical correlation is essential. Serum or plasma urea nitroge n measurement (mass/volume)Ordered By: Faustina Garrison on 08-15-2023 Urea nitrogen [Mass/Vol] 20 mg/dL 7-18 [facility] Squamous epithelial cells de tection in urine sediment by light microscopyOrdered By: Faustina Garrison on 08-15-2023 Epithelial cells.squamous LM Ql (Urine sed) 0-5 SEEN /hpf 0-5 [facility] Thin prep Papanicolaou smear with manual screeningOrdered By: Faustina Garrison on 08-15-2023 Thin prep Papanicolaou smear with manual screening 29 U/L 15-37 [facility] Comment on above: Slight Hemolysis, Re sult may be falsely increased. Thin prep Papanicolaou smear with manual screening 8 5-15 [facility] Urine blood detectionOrdered By: Faustina Garrison on 08-15-2023 RBC Ql (U) Negative Negative [facility] RBC Ql (U) 0 SEEN /hpf 0-5 [facility] Urine clarityOrdered By: Natali Garrison on 08-15-2023 Clarity (U) Sl. Cloudy Clear [facility] Urine color determinationOrd ered By: Faustina Garrison on 08-15-2023 Color (U) Yellow Yellow [facility] Urine glucose detectionOrder ed By: Faustina Garrison on 08-15-2023 Glucose Ql (U) Normal mg/dl Normal [facility] Urine leukocyte esterase det ection by dipstickOrdered By: Faustina Garrison on 08-15-2023 Leukocyte esterase Test strip Ql (U) Negative Negative [facility] Urine pHOrdered By: Faustina bartlett on 08-15-2023 pH (U) 8.0 [pH] 5.0 - 8.0 [facility] Urine sediment bacteria coun t by microscopy (number/high power field)Ordered By: Faustina Garrison on 08-15-2023 Bacteria LM.HPF (Urine sed) [#/Area] 0 /[HPF] None Seen [facility] Urine specific gravity measu rementOrdered By: Faustina Garrison on 08-15-2023 Specific gravity (U) [Rel density] 1.010 1.002-1.030 [facility] Urobilinogen Auto test strip Ql (U)Ordered By: Faustina Garrison on 08-15-2023 Urobilinogen Ql (U) Normal mg/dl Normal [facility] Absolute lymphocyte countOrd ered By: Mariela Olson on 01-25-2023 Lymphocytes Auto (Unsp spec) [#/Vol] 2.09 10*3/uL 0.83-4.51 [facility] Basophil percentageOrdered B y: Mariela Olson on 01-25-2023 Basophils/100 WBC (Bld) 0.6 % 0-1 [facility] Chloride [Moles/Vol] 106 mmol/L 98-107 [facility] Eosinophils/100 WBC (Bld) 6.0 % 0-5 [facility] Glucose [Mass/Vol] 98 mg/dL 74-106 [facility] Neutrophils (Bld) [#/Vol] 3.6 10*3/uL 2.0-7.7 [facility] Neutrophils/100 WBC (Bld) 52.4 % 47-70 [facility] Potassium [Moles/Vol] 4.2 mmol/L 3.5-5.1 [facility] Sodium [Moles/Vol] 138 mmol/L 136-145 [facility] WBC (Bld) [#/Vol] 6.9 10*3/uL 4.4-11.0 [facility] Blood erythrocytes count (nu mber/volume)Ordered By: Mariela Olson on 01-25-2023 RBC (Bld) [#/Vol] 4.64 10*6/uL 4.6-6.2 [facility] Blood hemoglobin measurement (mass/volume)Ordered By: Mariela Olson on 01-25-2023 Hemoglobin (Bld) [Mass/Vol] 14.2 g/dL 13.0-16.5 [facility] Blood lymphocytes/100 leukoc ytesOrdered By: Mariela Olson on 01-25-2023 Lymphocytes/100 WBC (Bld) 30.4 % 19-41 [facility] Blood monocytes/100 leukocyt esOrdered By: Mariela Olson on 01-25-2023 Monocytes/100 WBC (Bld) 10.3 % 0-10 [facility] Blood platelet mean volumeOr dered By: Mariela Olson on 01-25-2023 Platelet mean volume (Bld) [Entitic vol] 10.0 fL 6.2-12.0 [facility] [facility] Determination of erythrocyte mean corpuscular volume (MCV)Ordered By: Mariela Olson on 01-25-2023 MCV (RBC) [Entitic vol] 92.7 fL 80-94 [facility] Hematocrit Auto (Bld) [Volum e fraction]Ordered By: Mariela Olson on 01-25-2023 Hematocrit (Bld) [Volume fraction] 43.0 % 40-54 [facility] Laboratory - Chemistry and C hemistry - challengeOrdered By: Mariela Olson on 01-25-2023 CO2 [Moles/Vol] 28.0 mmol/L 21.0-32.0 [facility] Magnesium [Mass/Vol] 2.3 mg/dL 1.6-2.6 [facility] Urea nitrogen/Creatinine [Mass ratio] 17.7 mg/mg 10-20 [facility] Laboratory - Hematology and Cell countsOrdered By: Mariela Olson on 01-25-2023 Erythrocyte distribution width (RBC) [Entitic vol] 43.2 fL 35.1-43.9 [facility] Erythrocyte distribution width (RBC) [Ratio] 12.7 % 11.6-14.6 [facility] Immature granulocytes/100 WBC (Bld) 0.300 % 0.0-0.9 [facility] Comment on above: IG% - Immature Granu locytes (promyelocytes, myelocytes and metamyelocytes) > 1% indicates that a LEFT SHIFT is Present. MCH (RBC) [Entitic mass] 30.6 pg 27.0-32.0 [facility] Nucleated RBC/100 WBC (Bld) [Ratio] 0 % 0-5 [facility] MCHC Auto (RBC) [Mass/Vol]Or dered By: Mariela Olson on 01-25-2023 MCHC (RBC) [Mass/Vol] 33.0 g/dL 32-36 [facility] No Panel InformationOrdered By: Mariela Olson on 01-25-2023 Estimated GFR (MDRD) Amer 72 mL/min >60 [facility] Comment on above: GFR Calc Estimated GFR (MDRD) Non-Af Amer 60 mL/min >60 [facility] Comment on above: Non- GFR Calc Platelets bldOrdered By: Hortencia Olson on 01-25-2023 Platelets (Bld) [#/Vol] 242 10*3/uL 150-450 [facility] Serum or plasma calcium shagufta urement (mass/volume)Ordered By: Mariela Olson on 01-25-2023 Calcium [Mass/Vol] 9.3 mg/dL 8.5-10.1 [facility] Serum or plasma creatinine m easurement (mass/volume)Ordered By: Mariela Olson on 01-25-2023 Creatinine [Mass/Vol] 1.24 mg/dL 0.70-1.30 [facility] Comment on above: The validity of the calculated GFR & GFRAA in patients over 70 years has not been determined. Clinical correlation is essential. Serum or plasma urea nitroge n measurement (mass/volume)Ordered By: Mariela Olson on 01-25-2023 Urea nitrogen [Mass/Vol] 22 mg/dL 7-18 [facility] Thin prep Papanicolaou smear with manual screeningOrdered By: Mariela Olson on 01-25-2023 Thin prep Papanicolaou smear with manual screening 4 5-15 [facility] Vital Signs Date Time Vital Sign Value Performing Clinician Facility 02-11-2025 02:55-0400 Diastolic blood pressure 71 mm[Hg] Marielabruce Olson [employer] ENGINEER[employer]C Work Phone: [facility] 02-11-2025 02:55-0400 Heart rate 73 /min Marielabruce Olson [employer]IOR [employer] RESOURCES ENGINEER-C Work Phone: [facility] 02-11-2025 02:55-0400 Respiratory rate 14 /min Mariela Shahram [employer]IOR W[employer] RESOURCES ENGINEER-C Work Phone: [facility] 02-11-2025 02:55-0400 SaO2% (BldA) [Mass fraction] 98 % Mariela Olson [employer]IOR W[employer] RESOURCES ENGINEER-C Work Phone: [facility] 02-11-2025 02:55-0400 Systolic blood pressure 178 mm[Hg] Marielabruce Olson SENIOR W[employer] RESOURCES ENGINEER-C Work Phone: [facility] 02-11-2025 02:27-0400 Body temperature 98 [degF] Marielabruce Olson [employer]IOR W[employer] RESOURCES ENGINEER-C Work Phone: [facility] 02-10-2025 21:34-0400 Body height 170.18 cm Mariela Shahram S[employer]IOR WATER RESOURCES ENGINEER-C Work Phone: [facility] 02-10-2025 21:34-0400 Body mass index (BMI) [Ratio] 24.9 kg/m2 Marielabruce Olson [employer]IOR [employer] RESOURCES ENGINEER-C Work Phone: [facility] 02-10-2025 21:34-0400 Body weight 72.12 kg Mariela Shahram S[employer]IOR W[employer] RESOURCES ENGINEER-C Work Phone: [facility] 01-14-2025 09:01-0400 Body height 170.18 cm Mariela Hsahram S[employer]IOR WATER RESOURCES ENGINEER-C Work Phone: [facility] 01-14-2025 09:01-0400 Body mass index (BMI) [Ratio] 23.5 kg/m2 Mariela Shahram S[employer]IOR [employer] RESOURCES ENGINEER-C Work Phone: [facility] 01-14-2025 09:01-0400 Body weight 68.03 kg Mariela Shahram [employer]IOR W[employer] RESOURCES ENGINEER-C Work Phone: [facility] 01-09-2025 15:28-0400 Body height 170.18 cm Mariela Shahram SENIOR WATER RESOURCES ENGINEER-C Work Phone: [facility] 01-09-2025 15:28-0400 Body mass index (BMI) [Ratio] 24.1 kg/m2 Mariela Shahram S[employer]IOR W[employer] RESOURCES ENGINEER-C Work Phone: [facility] 01-09-2025 15:28-0400 Body temperature 98.4 [degF] Mariela Shahram SENIOR W[employer] RESOURCES ENGINEER-C Work Phone: [facility] 01-09-2025 15:28-0400 Body weight 69.9 kg Mariela Shahram SENIOR WATER RESOURCES ENGINEER-C Work Phone: [facility] 01-09-2025 15:28-0400 Diastolic blood pressure 74 mm[Hg] Mariela Shahram SENIOR W[employer] RESOURCES ENGINEER-C Work Phone: [facility] 01-09-2025 15:28-0400 Heart rate 62 /min Mariela Shahram SENIOR WATER RESOURCES ENGINEER-C Work Phone: [facility] 01-09-2025 15:28-0400 SaO2% (BldA) [Mass fraction] 97 % Mariela Shahram S[employer]IOR W[employer] RESOURCES ENGINEER-C Work Phone: [facility] 01-09-2025 15:28-0400 Systolic blood pressure 146 mm[Hg] Mariela Shahram SENIOR WATER RESOURCES ENGINEER-C Work Phone: [facility] 12-05-2024 14:06-0400 Diastolic blood pressure 87 mm[Hg] Mariela Shahram SENIOR WATER RESOURCES ENGINEER-C Work Phone: [facility] 12-05-2024 14:06-0400 Heart rate 62 /min Mariela Shahram SENIOR WATER RESOURCES ENGINEER-C Work Phone: [facility] 12-05-2024 14:06-0400 Respiratory rate 14 /min Mariela Shahram SENIOR WATER RESOURCES ENGINEER-C Work Phone: [facility] 12-05-2024 14:06-0400 SaO2% (BldA) [Mass fraction] 96 % Mariela Shahram SENIOR WATER RESOURCES ENGINEER-C Work Phone: [facility] 12-05-2024 14:06-0400 Systolic blood pressure 120 mm[Hg] Mariela Shahram SENIOR WATER RESOURCES ENGINEER-C Work Phone: [facility] 12-05-2024 08:22-0400 Body height 171.45 cm Mariela Shahram SENIOR WATER RESOURCES ENGINEER-C Work Phone: [facility] 12-05-2024 08:22-0400 Body mass index (BMI) [Ratio] 23.4 kg/m2 Mariela Shahram S[employer]IOR W[employer] RESOURCES ENGINEER-C Work Phone: [facility] 12-05-2024 08:22-0400 Body temperature 98 [degF] Mariela Shahram SENIOR W[employer] RESOURCES ENGINEER-C Work Phone: [facility] 12-05-2024 08:22-0400 Body weight 68.94 kg Mariela Shahram SENIOR WATER RESOURCES ENGINEER-C Work Phone: [facility] 12-05-2024 08:22-0400 Diastolic blood pressure 82 mm[Hg] Mariela Shahram SENIOR WATER RESOURCES ENGINEER-C Work Phone: [facility] 12-05-2024 08:22-0400 Heart rate 62 /min Mariela Shahram SENIOR WATER RESOURCES ENGINEER-C Work Phone: [facility] 12-05-2024 08:22-0400 Respiratory rate 13 /min Mariela Shahram SENIOR WATER RESOURCES ENGINEER-C Work Phone: [facility] 12-05-2024 08:22-0400 SaO2% (BldA) [Mass fraction] 100 % Mariela Shahram SENIOR WATER RESOURCES ENGINEER-C Work Phone: [facility] 12-05-2024 08:22-0400 Systolic blood pressure 185 mm[Hg] Mariela Shahram SENIOR WATER RESOURCES ENGINEER-C Work Phone: [facility] 11-28-2024 11:09-0400 Body mass index (BMI) [Ratio] 24 kg/m2 Mariela Shahram SENIOR W[employer] RESOURCES ENGINEER-C Work Phone: [facility] 11-28-2024 11:09-0400 Body temperature 98.5 [degF] Mariela Shahram SENIOR WATER RESOURCES ENGINEER-C Work Phone: [facility] 11-28-2024 11:09-0400 Body weight 70.76 kg Mariela Shahram SENIOR WATER RESOURCES ENGINEER-C Work Phone: [facility] 11-28-2024 11:09-0400 Diastolic blood pressure 76 mm[Hg] Mariela Shahram SENIOR WATER RESOURCES ENGINEER-C Work Phone: [facility] 11-28-2024 11:09-0400 Heart rate 74 /min Mariela Shahram SENIOR WATER RESOURCES ENGINEER-C Work Phone: [facility] 11-28-2024 11:09-0400 Respiratory rate 16 /min Mariela Shahram SENIOR WATER RESOURCES ENGINEER-C Work Phone: [facility] 11-28-2024 11:09-0400 SaO2% (BldA) [Mass fraction] 100 % Mariela Shahram SENIOR W[employer] RESOURCES ENGINEER-C Work Phone: [facility] 11-28-2024 11:09-0400 Systolic blood pressure 152 mm[Hg] Mariela Shahram SENIOR WATER RESOURCES ENGINEER-C Work Phone: [facility] 11-20-2024 13:22-0400 Body temperature 98 [degF] Mariela Shahram SENIOR WATER RESOURCES ENGINEER-C Work Phone: [facility] 11-20-2024 13:22-0400 Diastolic blood pressure 81 mm[Hg] Mariela Shahram SENIOR WATER RESOURCES ENGINEER-C Work Phone: [facility] 11-20-2024 13:22-0400 Heart rate 86 /min Mariela Shahram SENIOR WATER RESOURCES ENGINEER-C Work Phone: [facility] 11-20-2024 13:22-0400 Respiratory rate 18 /min Mariela Shahram SENIOR WATER RESOURCES ENGINEER-C Work Phone: [facility] 11-20-2024 13:22-0400 SaO2% (BldA) [Mass fraction] 95 % Mariela Shahram SENIOR WATER RESOURCES ENGINEER-C Work Phone: [facility] 11-20-2024 13:22-0400 Systolic blood pressure 139 mm[Hg] Mariela Shahram SENIOR WATER RESOURCES ENGINEER-C Work Phone: [facility] 11-19-2024 12:37-0400 Body height 171.45 cm Mariela Shahram SENIOR WATER RESOURCES ENGINEER-C Work Phone: [facility] 11-19-2024 12:37-0400 Body weight 68.94 kg Mariela Shahram SENIOR WATER RESOURCES ENGINEER-C Work Phone: [facility] 11-19-2024 08:57-0400 Body mass index (BMI) [Ratio] 23.4 kg/m2 Mariela Shahram SENIOR W[employer] RESOURCES ENGINEER-C Work Phone: [facility] 11-18-2024 15:02-0400 Heart rate 67 /min Mariela Hsahram SENIOR WATER RESOURCES ENGINEER-C Work Phone: [facility] 11-18-2024 15:02-0400 Respiratory rate 17 /min Mariela Shahram SENIOR WATER RESOURCES ENGINEER-C Work Phone: [facility] 11-18-2024 15:02-0400 SaO2% (BldA) [Mass fraction] 100 % Mariela Shahram SENIOR WATER RESOURCES ENGINEER-C Work Phone: [facility] 11-18-2024 13:14-0400 Diastolic blood pressure 86 mm[Hg] Mariela Shahram SENIOR WATER RESOURCES ENGINEER-C Work Phone: [facility] 11-18-2024 13:14-0400 Systolic blood pressure 186 mm[Hg] Mariela Shahram SENIOR WATER RESOURCES ENGINEER-C Work Phone: [facility] 11-18-2024 09:56-0400 Body height 170.18 cm Mariela Shahram SENIOR WATER RESOURCES ENGINEER-C Work Phone: [facility] 11-18-2024 09:56-0400 Body mass index (BMI) [Ratio] 23.9 kg/m2 Mariela Shahram SENIOR WATER RESOURCES ENGINEER-C Work Phone: [facility] 11-18-2024 09:56-0400 Body temperature 97.8 [degF] Mariela Shahram SENIOR WATER RESOURCES ENGINEER-C Work Phone: [facility] 11-18-2024 09:56-0400 Body weight 69.39 kg Mariela Shahram SENIOR WATER RESOURCES ENGINEER-C Work Phone: [facility] 11-07-2024 15:00-0400 Body temperature 98.1 [degF] Mariela Shahram SENIOR WATER RESOURCES ENGINEER-C Work Phone: [facility] 11-07-2024 15:00-0400 Diastolic blood pressure 69 mm[Hg] Mariela Shahram SENIOR WATER RESOURCES ENGINEER-C Work Phone: [facility] 11-07-2024 15:00-0400 Heart rate 79 /min Mariela Shahram SENIOR WATER RESOURCES ENGINEER-C Work Phone: [facility] 11-07-2024 15:00-0400 SaO2% (BldA) [Mass fraction] 99 % Mariela Shahram SENIOR WATER RESOURCES ENGINEER-C Work Phone: [facility] 11-07-2024 15:00-0400 Systolic blood pressure 149 mm[Hg] Mariela Shahram SENIOR WATER RESOURCES ENGINEER-C Work Phone: [facility] 11-07-2024 10:48-0400 Diastolic blood pressure 66 mm[Hg] Mariela Shahram SENIOR WATER RESOURCES ENGINEER-C Work Phone: [facility] 11-07-2024 10:48-0400 Heart rate 88 /min Mariela Shahram SENIOR WATER RESOURCES ENGINEER-C Work Phone: [facility] 11-07-2024 10:48-0400 Systolic blood pressure 153 mm[Hg] Mariela Shahram SENIOR WATER RESOURCES ENGINEER-C Work Phone: [facility] 11-07-2024 08:22-0400 Body temperature 98 [degF] Mariela Shahram SENIOR WATER RESOURCES ENGINEER-C Work Phone: [facility] 11-07-2024 08:22-0400 Respiratory rate 16 /min Mariela Shahram SENIOR WATER RESOURCES ENGINEER-C Work Phone: [facility] 11-07-2024 07:11-0400 SaO2% (BldA) [Mass fraction] 98 % Mariela Shahram SENIOR WATER RESOURCES ENGINEER-C Work Phone: [facility] 11-07-2024 03:38-0400 Body height 170.18 cm Mariela Shahram SENIOR WATER RESOURCES ENGINEER-C Work Phone: [facility] 11-07-2024 03:38-0400 Body mass index (BMI) [Ratio] 25.1 kg/m2 Mariela Shahram SENIOR W[employer] RESOURCES ENGINEER-C Work Phone: [facility] 11-07-2024 03:38-0400 Body weight 72.8 kg Mariela Shahram SENIOR W[employer] RESOURCES ENGINEER-C Work Phone: [facility] 11-06-2024 01:00-0400 Diastolic blood pressure 71 mm[Hg] Mariela Shahram SENIOR WATER RESOURCES ENGINEER-C Work Phone: [facility] 11-06-2024 01:00-0400 Heart rate 77 /min Mariela Shahram SENIOR WATER RESOURCES ENGINEER-C Work Phone: [facility] 11-06-2024 01:00-0400 Respiratory rate 18 /min Mariela Shahram SENIOR WATER RESOURCES ENGINEER-C Work Phone: [facility] 11-06-2024 01:00-0400 SaO2% (BldA) [Mass fraction] 99 % Mariela Shahram SENIOR W[employer] RESOURCES ENGINEER-C Work Phone: [facility] 11-06-2024 01:00-0400 Systolic blood pressure 169 mm[Hg] Mariela Shahram SENIOR W[employer] RESOURCES ENGINEER-C Work Phone: [facility] 11-06-2024 00:36-0400 Body temperature 98.3 [degF] Mariela Shahram SENIOR WATER RESOURCES ENGINEER-C Work Phone: [facility] 11-05-2024 22:21-0400 Body height 170.18 cm Mariela Shahram SENIOR WATER RESOURCES ENGINEER-C Work Phone: [facility] 11-05-2024 22:21-0400 Body mass index (BMI) [Ratio] 25.7 kg/m2 Mariela Shahram SENIOR W[employer] RESOURCES ENGINEER-C Work Phone: [facility] 11-05-2024 22:21-0400 Body weight 74.34 kg Mariela Shahram SENIOR WATER RESOURCES ENGINEER-C Work Phone: [facility] 10-31-2024 11:16-0400 Body mass index (BMI) [Ratio] 25.9 kg/m2 Mariela Shahram SENIOR W[employer] RESOURCES ENGINEER-C Work Phone: [facility] 10-31-2024 11:16-0400 Body temperature 98.4 [degF] Mariela Shahram SENIOR WATER RESOURCES ENGINEER-C Work Phone: [facility] 10-31-2024 11:16-0400 Body weight 74.89 kg Mariela Shahram SENIOR WATER RESOURCES ENGINEER-C Work Phone: [facility] 10-31-2024 11:16-0400 Diastolic blood pressure 83 mm[Hg] Mariela Shahram SENIOR WATER RESOURCES ENGINEER-C Work Phone: [facility] 10-31-2024 11:16-0400 Heart rate 71 /min Mariela Shahram SENIOR WATER RESOURCES ENGINEER-C Work Phone: [facility] 10-31-2024 11:16-0400 Respiratory rate 18 /min Mariela Shahram SENIOR WATER RESOURCES ENGINEER-C Work Phone: [facility] 10-31-2024 11:16-0400 SaO2% (BldA) [Mass fraction] 98 % Mariela Shahram SENIOR W[employer] RESOURCES ENGINEER-C Work Phone: [facility] 10-31-2024 11:16-0400 Systolic blood pressure 175 mm[Hg] Mariela Shahram SENIOR WATER RESOURCES ENGINEER-C Work Phone: [facility] 10-24-2024 20:51-0400 Body temperature 98 [degF] Mariela Shahram SENIOR WATER RESOURCES ENGINEER-C Work Phone: [facility] 10-24-2024 20:51-0400 Diastolic blood pressure 73 mm[Hg] Mariela Shahram SENIOR WATER RESOURCES ENGINEER-C Work Phone: [facility] 10-24-2024 20:51-0400 Heart rate 72 /min Mariela Shahram SENIOR WATER RESOURCES ENGINEER-C Work Phone: [facility] 10-24-2024 20:51-0400 Respiratory rate 18 /min Mariela Shahram SENIOR WATER RESOURCES ENGINEER-C Work Phone: [facility] 10-24-2024 20:51-0400 SaO2% (BldA) [Mass fraction] 98 % Mariela Shahram SENIOR WATER RESOURCES ENGINEER-C Work Phone: [facility] 10-24-2024 20:51-0400 Systolic blood pressure 126 mm[Hg] Mariela Shahram SENIOR WATER RESOURCES ENGINEER-C Work Phone: [facility] 10-24-2024 17:36-0400 Body height 170 cm Mariela Shahram SENIOR WATER RESOURCES ENGINEER-C Work Phone: [facility] 10-24-2024 17:36-0400 Body mass index (BMI) [Ratio] 26.2 kg/m2 Mariela Shahram SENIOR WATER RESOURCES ENGINEER-C Work Phone: [facility] 10-24-2024 17:36-0400 Body weight 75.79 kg Mariela Shahram SENIOR WATER RESOURCES ENGINEER-C Work Phone: [facility] 10-17-2024 14:15-0400 Body mass index (BMI) [Ratio] 26.2 kg/m2 Mariela Shahram SENIOR W[employer] RESOURCES ENGINEER-C Work Phone: [facility] 10-17-2024 14:15-0400 Body weight 75.74 kg Mariela Shahram SENIOR WATER RESOURCES ENGINEER-C Work Phone: [facility] 10-17-2024 14:15-0400 Diastolic blood pressure 87 mm[Hg] Mariela Shahram SENIOR WATER RESOURCES ENGINEER-C Work Phone: [facility] 10-17-2024 14:15-0400 Heart rate 60 /min Mariela Shahram SENIOR W[employer] RESOURCES ENGINEER-C Work Phone: [facility] 10-17-2024 14:15-0400 Respiratory rate 16 /min Mariela Shahram SENIOR WATER RESOURCES ENGINEER-C Work Phone: [facility] 10-17-2024 14:15-0400 Systolic blood pressure 148 mm[Hg] Mariela Shahram SENIOR W[employer] RESOURCES ENGINEER-C Work Phone: [facility] 09-07-2024 12:53-0500 Diastolic blood pressure 71 mm[Hg] Darrel Pringle MD [facility] 09-07-2024 12:53-0500 Systolic blood pressure 159 mm[Hg] Darrel Pringle MD [facility] 08-08-2024 09:55-0500 Body mass index (BMI) [Ratio] 26.9 kg/m2 Mariela Shahram SENIOR W[employer] RESOURCES ENGINEER-C Work Phone: [facility] 08-08-2024 09:55-0500 Body temperature 98.5 [degF] Mariela Shahram SENIOR WATER RESOURCES ENGINEER-C Work Phone: [facility] 08-08-2024 09:55-0500 Body weight 78.18 kg Mariela Shahram SENIOR WATER RESOURCES ENGINEER-C Work Phone: [facility] 08-08-2024 09:55-0500 Diastolic blood pressure 90 mm[Hg] Mariela Shahram SENIOR WATER RESOURCES ENGINEER-C Work Phone: [facility] 08-08-2024 09:55-0500 Heart rate 81 /min Mariela Shahram SENIOR W[employer] RESOURCES ENGINEER-C Work Phone: [facility] 08-08-2024 09:55-0500 Respiratory rate 18 /min Mariela Shahram SENIOR WATER RESOURCES ENGINEER-C Work Phone: [facility] 08-08-2024 09:55-0500 SaO2% (BldA) [Mass fraction] 99 % Mariela Shahram SENIOR W[employer] RESOURCES ENGINEER-C Work Phone: [facility] 08-08-2024 09:55-0500 Systolic blood pressure 196 mm[Hg] Mariela Shahram SENIOR WATER RESOURCES ENGINEER-C Work Phone: [facility] 07-18-2024 09:20-0500 Body mass index (BMI) [Ratio] 26.5 kg/m2 Mariela Shahram SENIOR W[employer] RESOURCES ENGINEER-C Work Phone: [facility] 07-18-2024 09:20-0500 Body temperature 97.8 [degF] Mariela Shahram SENIOR W[employer] RESOURCES ENGINEER-C Work Phone: [facility] 07-18-2024 09:20-0500 Body weight 76.91 kg Mariela Shahram SENIOR WATER RESOURCES ENGINEER-C Work Phone: [facility] 07-18-2024 09:20-0500 Diastolic blood pressure 88 mm[Hg] Mariela Shahram SENIOR W[employer] RESOURCES ENGINEER-C Work Phone: [facility] 07-18-2024 09:20-0500 Heart rate 71 /min Mariela Shahram SENIOR W[employer] RESOURCES ENGINEER-C Work Phone: [facility] 07-18-2024 09:20-0500 Respiratory rate 16 /min Mariela Shahram SENIOR W[employer] RESOURCES ENGINEER-C Work Phone: [facility] 07-18-2024 09:20-0500 SaO2% (BldA) [Mass fraction] 97 % Mariela Shahram SENIOR W[employer] RESOURCES ENGINEER-C Work Phone: [facility] 07-18-2024 09:20-0500 Systolic blood pressure 193 mm[Hg] Mariela Shahram SENIOR W[employer] RESOURCES ENGINEER-C Work Phone: [facility] 07-04-2024 14:18-0500 Body mass index (BMI) [Ratio] 26.4 kg/m2 Mariela Shahram SENIOR W[employer] RESOURCES ENGINEER-C Work Phone: [facility] 07-04-2024 14:18-0500 Body temperature 98.2 [degF] Mariela Olson SENIOR W[employer] RESOURCES ENGINEER-C Work Phone: [facility] 07-04-2024 14:18-0500 Body weight 76.43 kg Mariela lOson SENIOR W[employer] RESOURCES ENGINEER-C Work Phone: [facility] 07-04-2024 14:18-0500 Diastolic blood pressure 75 mm[Hg] Mariela Shahram SENIOR WATER RESOURCES ENGINEER-C Work Phone: [facility] 07-04-2024 14:18-0500 Heart rate 58 /min Mariela Olson SENIOR WATER RESOURCES ENGINEER-C Work Phone: [facility] 07-04-2024 14:18-0500 Respiratory rate 18 /min Mariela Olson SENIOR WATER RESOURCES ENGINEER-C Work Phone: [facility] 07-04-2024 14:18-0500 SaO2% (BldA) [Mass fraction] 100 % Mariela Olson SENIOR WATER RESOURCES ENGINEER-C Work Phone: [facility] 07-04-2024 14:18-0500 Systolic blood pressure 165 mm[Hg] Mariela Olson SENIOR WATER RESOURCES ENGINEER-C Work Phone: [facility] 12-11-2023 08:05-0400 Body temperature 97.9 [degF] Dr. Neville Islas Work Phone: [facility] 12-11-2023 08:05-0400 Diastolic blood pressure 70 mm[Hg] Dr. Neville Islas Work Phone: [facility] 12-11-2023 08:05-0400 Heart rate 59 /min Dr. Neville Islas Work Phone: [facility] 12-11-2023 08:05-0400 Respiratory rate 13 /min Dr. Neville Islas Work Phone: [facility] 12-11-2023 08:05-0400 SaO2% (BldA) [Mass fraction] 95 % Dr. Neville Islas Work Phone: [facility] 12-11-2023 08:05-0400 Systolic blood pressure 151 mm[Hg] Dr. Neville Islas Work Phone: [facility] 12-11-2023 02:39-0400 Body height 172.[address] Neville Isals Work Phone: [facility] 12-11-2023 02:39-0400 Body mass index (BMI) [Ratio] 29 kg/m2 Dr. Neville Islas Work Phone: [facility] 12-11-2023 02:39-0400 Body weight 86.[address] Neville Islas Work Phone: [facility] 08-16-2023 16:10-0500 Body temperature 97.7 [degF] Dr. Neville Islas Work Phone: [facility] 08-16-2023 16:10-0500 Diastolic blood pressure 69 mm[Hg] Dr. Neville Islas Work Phone: [facility] 08-16-2023 16:10-0500 Heart rate 64 /min Dr. Neville Islas Work Phone: [facility] 08-16-2023 16:10-0500 Respiratory rate 18 /min Dr. Neville Islas Work Phone: [facility] 08-16-2023 16:10-0500 SaO2% (BldA) [Mass fraction] 100 % Dr. Neville Islas Work Phone: [facility] 08-16-2023 16:10-0500 Systolic blood pressure 154 mm[Hg] Dr. Neville Islas Work Phone: [facility] 08-16-2023 13:54-0500 Body weight 78.[address] Neville Islas Work Phone: [facility] 08-15-2023 22:26-0500 Body mass index (BMI) [Ratio] 25.5 kg/m2 Dr. Neville Islas Work Phone: [facility] 08-15-2023 21:10-0500 Diastolic blood pressure 80 mm[Hg] [facility] 08-15-2023 21:10-0500 Heart rate 71 /min [facility] 08-15-2023 21:10-0500 Respiratory rate 18 /min [facility] 08-15-2023 21:10-0500 SaO2% (BldA) [Mass fraction] 98 % [facility] 08-15-2023 21:10-0500 Systolic blood pressure 187 mm[Hg] [facility] 08-15-2023 14:37-0500 Body height 172.72 cm [facility] 08-15-2023 14:37-0500 Body mass index (BMI) [Ratio] 27.3 kg/m2 [facility] 08-15-2023 14:37-0500 Body temperature 95.5 [degF] [facility] 08-15-2023 14:37-0500 Body weight 81.6 kg [facility] Encounters Encounter Date Encounter Type Care Provider Facility Start: 02-11-2025 Evaluation and management of inpatient Mariela Olson SENIOR WATER RESOURCES ENGINEER-C Work Phone: -Intensive Care Unit Start: 02-11-2025 Dr. Ramirez Horne DO -Intensive Care Unit Work Phone: Start: 02-07-2025 Dr. Neville guillen DO -Laboratory Specimen Work Phone: Start: 02-07-2025 End: 02-07-2025 ambulatory [facility] Start: 01-18-2025 Encounter for preprocedural cardiovascular examination Adrian Flores [facility] Start: 01-14-2025 End: 01-14-2025 ambulatory Mariela Olson SENIOR WATER RESOURCES ENGINEER-C Work Phone: [facility] Work Phone: Start: 01-14-2025 End: 01-14-2025 Dr. Adrian Flores MD -Brine Plant Operator/Special Procedures Work Phone: Start: 01-14-2025 End: 01-14-2025 ambulatory Adrian Mark Facility:[facility] Start: 01-11-2025 ambulatory Darrel Pringle [facility] Start: 01-09-2025 End: 01-09-2025 Dr. Brenda Araujo MD -[facility] Work Phone: Start: 01-09-2025 End: 01-09-2025 ambulatory Mariela Olson SENIOR WATER RESOURCES ENGINEER-C Work Phone: [facility] Work Phone: Start: 01-06-2025 ambulatory Adriankaitlin Flores Facility:[facility] Start: 01-06-2025 Dr. Adrian Flores MD -[facility] -[facility] Start: 12-14-2024 End: 12-14-2024 ambulatory Mariela Olson SENIOR WATER RESOURCES ENGINEER-C Work Phone: [facility] Work Phone: Start: 12-14-2024 End: 12-14-2024 Malinda Webster NP-C -Laboratory Work Phone: Start: 12-14-2024 End: 12-14-2024 ambulatory Malinda Webster SENIOR WATER RESOURCES ENGINEER Facility:[facility] Start: 12-11-2024 Encounter for preprocedural laboratory examination Brenda Araujo [facility] Start: 12-05-2024 End: 12-05-2024 ambulatory Mariela Olson SENIOR WATER RESOURCES ENGINEER-C Work Phone: [facility] Work Phone: Start: 12-05-2024 End: 12-05-[address] Brenda Araujo MD -Cat Brenda, [facility] Work Phone: Start: 12-05-2024 End: 12-05-2024 Dr. Brenda GarciaCat Brenda [facility] Work Phone: Start: 12-04-2024 End: 12-04-2024 Patient encounter procedure [facility] Work Phone: Start: 12-04-2024 End: 12-04-2024 [facility] Work Phone: Start: 12-04-2024 End: 12-05-2024 ambulatory [facility] Facility:[facility] Start: 11-30-2024 End: 11-30-2024 ambulatory Mariela Olson SENIOR WATER RESOURCES ENGINEER-C Work Phone: [facility] Work Phone: Start: 11-30-2024 End: 11-30-[address] Brenda Araujo MD -Cat Brenda, [facility] Work Phone: Start: 11-30-2024 End: 11-30-2024 [facility] Start: 11-30-2024 End: 11-30-2024 ambulatory [facility] Facility:[facility] Start: 11-28-2024 ambulatory Adrian Flores Facility:[facility] Start: 11-28-2024 Non-patient / Non-visit Dr. Norberto DAVIS -[facility] Start: 11-28-2024 End: 11-28-2024 Patient encounter procedure Malinda Webster SENIOR WATER RESOURCES ENGINEER-C -Cardiovascular Services Work Phone: Start: 11-28-2024 End: 11-28-2024 Dr. Adrian Flores MD [facility] Start: 11-28-2024 End: 11-28-[address] Brenda Araujo MD [facility] Work Phone: Start: 11-28-2024 End: 11-28-2024 Dr. Brenda Araujo MD [facility] Work Phone: Start: 11-28-2024 End: 11-28-2024 ambulatory Mariela Olson Facility:[facility] Start: 11-28-2024 End: 11-28-2024 ambulatory Malinda Webster SENIOR WATER RESOURCES ENGINEER Facility:[facility] Start: 11-20-2024 Non-patient / Non-visit Dr. Kalen Jang [facility] Work Phone: Start: 11-20-2024 Dr. Neville singh [facility] Work Phone: Start: 11-19-2024 Non-patient / Non-visit Dr. Kalen Jang [facility] Work Phone: Start: 11-19-2024 Dr. Neville singh [facility] Work Phone: Start: 11-19-2024 Non-patient / Non-visit Ari Chu matthieu DO -[facility] Start: 11-19-2024 Ari Friend DO -[facility] Start: 11-18-2024 Non-patient / Non-visit Dr. Marybel Schrader MD -[facility] Work Phone: Start: 11-18-2024 ambulatory Kelvin Schrader Fac ility:[facility] Start: 11-18-2024 End: 11-20-2024 Evaluation and management of inpatient Dr. Kelvin Schrader MD -Medical Surgical 3 Work Phone: Start: 11-18-2024 End: 11-20-2024 Dr. Neville Jang DO -Medical Surgical 3 Work Phone: Start: 11-09-2024 ambulatory Darrel Pringle [facility] [place] Start: 11-09-2024 Office outpatient vi sit 25 minutes Darrel Pino [facility] Start: 11-07-2024 Non-patient / Non-visit Dr. Stevie francis [facility] Work Phone: Start: 11-07-2024 Dr. Stevie [facility] Work Phone: Start: 11-07-2024 End: 11-07-2024 ambulatory Adrian Flores Facility:[facility] Start: 11-07-2024 End: 11-07-2024 Non-patient / Non-visit Dr. Adrian Flores MD -[facility] Work Phone: Start: 11-07-2024 End: 11-07-2024 Dr. Adrian Flores MD -[facility] Work Phone: Start: 11-06-2024 Non-patient / Non-visit Ari Sage nd DO -[facility] Start: 11-06-2024 Ari Silvestre DO -[facility] Start: 11-06-2024 ambulatory [facility] Facility:[facility] Start: 11-06-2024 End: 11-07-2024 Evaluation and management of inpatient Dr. Darrel Carpenter DO Progressive Care Unit Work Phone: Start: 11-06-2024 End: 11-07-2024 Dr. Stevie Harrington DO Progressive Care Un it Work Phone: Start: 11-02-2024 End: 01-12-2025 Telephone encounter Papi Hernandez MD Work Phone: Hematology/Oncology Comment on above: Patient Question Start: 10-31-2024 End: 10-31-[address] Papi Hernandez MD -[facility] Work Phone: Start: 10-31-2024 End: 10-31-2024 Dr. Papi Hernandez MD -[facility] Work Phone: Start: 10-31-2024 End: 10-31-2024 ambulatory [facility] Facility[facility] Start: 10-24-2024 End: 10-24-2024 Dr. Jerry Hightower DO -Emergency Department Work Phone: Start: 10-24-2024 End: 10-24-2024 Emergency department patient visit Mariela Olson SENIOR WATER RESOURCES ENGINEER-C Work Phone: -Emergency Department Work Phone: Start: 10-24-2024 End: 10-24-[address] Papi Hernandez MD -Cat Scan, [facility] Work Phone: Start: 10-24-[address] Papi Hernandez MD -[facility] Start: 10-24-2024 End: 10-24-2024 Dr. Papi Hernandez MD -[facility] Start: 10-24-2024 End: 10-24-2024 ambulatory Marielabruce Olson SENIOR WATER RESOURCES ENGINEER-C Work Phone: [facility] Work Phone: Start: 10-24-2024 End: 10-24-2024 ambulatory [facility] Facility:[facility] Start: 10-17-2024 End: 10-17-2024 ambulatory Mariela Shahram SENIOR WATER RESOURCES ENGINEER-C Work Phone: [facility] Work Phone: Start: 10-17-2024 End: 10-17-2024 Patient encounter procedure Malinda Webster SENIOR WATER RESOURCES ENGINEER-C -Laboratory Work Phone: Start: 10-17-2024 End: 10-17-2024 Malinda Webster SENIOR WATER RESOURCES ENGINEER-C -Laboratory Work Phone: Start: 10-17-2024 End: 10-17-2024 Patient encounter procedure Malinda Webster SENIOR WATER RESOURCES ENGINEER-C -[facility] Work Phone: Start: 10-17-2024 End: 10-17-2024 Malinda Webster SENIOR WATER RESOURCES ENGINEER-C -[facility] Work Phone: Start: 10-17-2024 End: 10-17-2024 ambulatory Mariela Olson [facility] Start: 10-17-2024 End: 10-17-2024 ambulatory [facility] Facility:[facility] Start: 09-07-2024 End: 09-07-2024 Darrel Pringle Work Phone: [facility] Start: 09-07-2024 ambulatory Darrel Pringle [facility] Start: 09-05-2024 End: 09-05-2024 Patient encounter procedure Mariela Olson SENIOR WATER RESOURCES ENGINEER-C -LaboratoryOsmel [facility] Start: 09-05-2024 End: 09-05-2024 Mariela Olson SENIOR WATER RESOURCES ENGINEER-C -LaboratoryOsmel [facility] Start: 09-05-2024 End: 09-05-2024 ambulatory [facility] Facility:[facility] Start: 08-08-2024 End: 08-08-[address] Papi Hernandez MD -[facility] Work Phone: Start: 08-08-2024 End: 08-08-2024 Dr. Papi Hernandez MD -[facility] Work Phone: Start: 08-08-2024 End: 08-08-2024 ambulatory Mariela Shahram Facility:[facility] Start: 07-18-2024 End: 07-18-2024 Patient encounter procedure Selam FRANCISCO -[facility] Work Phone: Start: 07-18-2024 End: 07-18-2024 ambulatory Mariela Shahram Facility:[facility] Start: 07-13-2024 End: 07-13-2024 Darrel Pringle Work Phone: [facility] Start: 07-13-2024 ambulatory Darrel Pringle [facility] Start: 07-04-2024 End: 07-04-[address] Papi Hernandez MD -[facility] Work Phone: Start: 07-04-2024 End: 07-04-2024 ambulatory Mariela Olsno Facility:[facility] Start: 07-04-2024 Encounter for other preprocedural examination [facility] Start: 06-25-2024 Encounter for other preprocedural examination Du Thomas [facility] Start: 06-22-2024 ambulatory Du Thomas Facility: [facility] Start: 06-22-2024 End: 06-22-2024 ambulatory Du Thomas Facility:[facility] Start: 06-20-2024 End: 06-20-2024 ambulatory Du Thomas Facility:[facility] Start: 06-18-2024 ambulatory Mariela Olson Facility:[facility] Start: 06-12-2024 End: 06-12-2024 ambulatory Mariela Shahram Facility:[facility] Start: 06-08-2024 End: 06-10-2024 Evaluation and management of inpatient Lucy Polanco Facility:[facility] Start: 06-08-2024 ambulatory Lucy Polanco Facility:[facility] Start: 06-07-2024 End: 06-07-2024 Emergency department patient visit Jerry Hightower Facility:[facility] Start: 06-07-2024 End: 06-08-2024 ambulatory Mariela Shahram Facility:[facility] Start: 05-31-2024 End: 05-31-2024 ambulatory Mariela Shahram Facility:[facility] Start: 05-25-2024 End: 05-25-2024 Darrel Pringle Work Phone: [facility] Start: 05-25-2024 ambulatory Darrel Pringle [facility] Start: 05-16-2024 End: 05-16-2024 ambulatory Mariela Olson Facility:[facility] Start: 05-10-2024 End: 05-10-2024 ambulatory Du Thomas Facility:[facility] Start: 05-07-2024 End: 05-07-2024 ambulatory Mariela Shahram Facility:[facility] Start: 04-27-2024 ambulatory Du Thomas Facility: [facility] Start: 04-27-2024 End: 05-01-2024 Evaluation and management of inpatient Du Thomas Facility:[facility] Start: 04-27-2024 ambulatory Du Thomas Facility: [facility] Start: 04-25-2024 Encounter for preprocedural cardiovascular examination Alsipkaitlin Flores [facility] Start: 04-25-2024 End: 04-25-2024 ambulatory Mariela Shahram Facility:[facility] Start: 04-23-2024 Patient encounter status Mariela Olson SENIOR WATER RESOURCES ENGINEER-C Work Phone: [facility] Comment on above: Right hemicolectomy 04/27/2024 Start: 04-20-2024 End: 04-20-2024 ambulatory Mariela Olson Facility:[facility] Start: 04-13-2024 ambulatory Ari Silvestre Facility :[facility] Start: 04-13-2024 ambulatory Len Staton Facility:[facility] Start: 04-12-2024 End: 04-12-2024 ambulatory Mariela Olson Facility:[facility] Start: 04-12-2024 ambulatory Darrel Ferrerai ty:[facility] Start: 04-12-2024 End: 04-15-2024 Evaluation and management of inpatient Darrel Carpenter Facility:[facility] Start: 04-11-2024 End: 04-11-2024 ambulatory Mariela Olson Facility:[facility] Start: 03-30-2024 End: 03-30-2024 Darrel Pringle Work Phone: [facility] Start: 03-30-2024 ambulatory Darrel Pringle [facility] Start: 02-15-2024 End: 02-15-2024 ambulatory Lisandra Lazcano Facility:[facility] Start: 02-10-2024 End: 02-10-2024 Darrel Pringle Work Phone: [facility] Start: 02-03-2024 End: 02-03-2024 ambulatory Neville Islas Facility:[facility] Start: 12-21-2023 End: 12-21-2023 Darrel Pringle Work Phone: [facility] Start: 12-11-2023 End: 12-11-2023 Emergency department patient visit Dr. Neville Islas Work Phone: [facility]-Emergency Department Work Phone: Start: 10-26-2023 End: 10-26-2023 Darrel Pringle Work Phone: [facility] Start: 08-24-2023 End: 08-24-2023 Darrel Pringle Work Phone: [facility] Start: 08-22-2023 End: 08-22-[address] Neville Islas Work Phone: [facility]-Ramesh Chaconeyhien Carnes [facility] Start: 08-16-2023 Non-patient / Non-visit Dr. Kalen Islas Work Phone: [facility] Work Phone: Start: 08-16-2023 Non-patient / Non-visit Dr. Kalen Islas Work Phone: [facility] Start: 08-16-2023 Non-patient / Non-visit Dr. Kalen Islas Work Phone: [facility] Start: 08-15-2023 End: 08-15-2023 Non-patient / Non-visit Dr. Neville Islas Work Phone: [facility] Work Phone: Start: 08-15-2023 End: 08-16-2023 Evaluation and management of inpatient [facility]-Progressive Care Unit Work Phone: Start: 08-15-2023 Non-patient / Non-visit Dr. Kalen Islas Work Phone: [facility] Work Phone: Start: 06-29-2023 End: 06-29-2023 Darrel Pringle Work Phone: [facility] Start: 05-11-2023 End: 05-11-2023 Darrel Pringle Work Phone: [facility] Start: 03-30-2023 End: 03-30-2023 Darrel Pringle Work Phone: [facility] Start: 02-23-2023 End: 02-23-2023 Darrel Pringle Work Phone: [facility] Start: 01-25-2023 End: 01-25-2023 ambulatory [facility] Work Phone: Start: 01-25-2023 End: 01-25-2023 Patient encounter procedure [facility]-Osmel Chacon [facility] Start: 01-19-2023 End: 01-19-2023 Darrel Pringle Work Phone: [facility] Start: 01-05-2023 End: 01-05-2023 Darrel Pringle Work Phone: [facility] Start: 12-08-2022 End: 12-08-2022 Darrel Pringle [...] encounter status Beata Herrera MD Work Phone: [facility] Work Phone: Procedures Date Procedure Procedure Detail Performing Clinician Start: 02-11-2025 Computed tomography of abdomen and pelvis with intravenous contrast Mariela Olson SENIOR WATER RESOURCES ENGINEER-C Work Phone: Start: 02-10-2025 Blood count smear mcrscp w/mnl difrntl wbc count Mariela Olson SENIOR WATER RESOURCES ENGINEER-C Work Phone: Start: 02-10-2025 Calculation of international normalized ratio Mariela Olson SENIOR WATER RESOURCES ENGINEER-C Work Phone: Start: 02-10-2025 Estimated creatinine clearance Mariela burrell SENIOR WATER RESOURCES ENGINEER-C Work Phone: Start: 02-10-2025 Mean corpuscular hemoglobin concentration determination Mariela Olson SENIOR WATER RESOURCES ENGINEER-C Work Phone: Start: 02-10-2025 Nucleated red blood cell count procedure Mariela Olson SENIOR WATER RESOURCES ENGINEER-C Work Phone: Start: 02-10-2025 Platelet mean volume determination Mariela Olson SENIOR WATER RESOURCES ENGINEER-C Work Phone: Start: 02-10-2025 Triacylglycerol lipase measurement Mariela Olson SENIOR WATER RESOURCES ENGINEER-C Work Phone: Start: 02-10-2025 Urine microscopy: red cells Mariela CALEROC Work Phone: Start: 02-10-2025 Urnls dip stick/tablet reagent auto microscopy Mariela CALEROC Work Phone: Start: 02-10-2025 Plain chest X-ray Mariela CALEROC Work Phone: Start: 02-07-2025 Urine culture Mariela Olson SENIOR WATER RESOURCES ENGINEER-C Work Phone: Start: 02-07-2025 Urnls dip stick/tablet reagent auto microscopy Mariela Olson SENIOR WATER RESOURCES ENGINEERJoseC Work Phone: Start: 01-11-2025 Computerized ophthalmic imaging retina Darrel Pringle Start: 01-11-2025 Eylea 1mg Pre-filled Syringe Darrel howard Start: 01-11-2025 Intravitreal njx pharmacologic agt spx Darrel Pringle Start: 01-08-2025 Blood count smear mcrscp w/mnl difrntl wbc count Mariela Olson SENIOR WATER RESOURCES ENGINEER-C Work Phone: Start: 01-08-2025 Mean corpuscular hemoglobin concentration determination Mariela Olson SENIOR WATER RESOURCES ENGINEER-C Work Phone: Start: 01-08-2025 Nucleated red blood cell count procedure Mariela Olson SENIOR WATER RESOURCES ENGINEER-C Work Phone: Start: 01-08-2025 Platelet mean volume determination Mariela Olson SENIOR WATER RESOURCES ENGINEER-C Work Phone: Start: 12-14-2024 X-ray of chest, PA and lateral views Mariela Olson SENIOR WATER RESOURCES ENGINEER-C Work Phone: Start: 12-14-2024 Blood count smear mcrscp w/mnl difrntl wbc count Mariela Olson SENIOR WATER RESOURCES ENGINEER-C Work Phone: Start: 12-14-2024 Mean corpuscular hemoglobin concentration determination Mariela Olson SENIOR WATER RESOURCES ENGINEER-C Work Phone: Start: 12-14-2024 Nucleated red blood cell count procedure Mariela Olson SENIOR WATER RESOURCES ENGINEER-C Work Phone: Start: 12-14-2024 Platelet mean volume determination Mariela Olson SENIOR WATER RESOURCES ENGINEER-C Work Phone: Start: 12-14-2024 Total iron binding capacity measurement Mariela Olson SENIOR WATER RESOURCES ENGINEER-C Work Phone: Start: 12-05-2024 Biopsy/Inj or Needle Placement Marielabruce burrell SENIOR WATER RESOURCES ENGINEER-C Work Phone: Start: 12-05-2024 Mariela Olson SENIOR WATER RESOURCES ENGINEER-C Work Phone: Start: 12-05-2024 Blood count smear mcrscp w/mnl difrntl wbc count Mariela Olson SENIOR WATER RESOURCES ENGINEER-C Work Phone: Start: 12-05-2024 Calculation of international normalized ratio Mariela Olson SENIOR WATER RESOURCES ENGINEER-C Work Phone: Start: 12-05-2024 Mean corpuscular hemoglobin concentration determination Mariela Olson SENIOR WATER RESOURCES ENGINEER-C Work Phone: Start: 12-05-2024 Nucleated red blood cell count procedure Mariela Olson SENIOR WATER RESOURCES ENGINEER-C Work Phone: Start: 12-05-2024 Platelet mean volume determination Mariela Olson SENIOR WATER RESOURCES ENGINEER-C Work Phone: Start: 11-30-2024 CT of thorax with contrast Mariela Olson SENIOR WATER RESOURCES ENGINEER-C Work Phone: Start: 11-20-2024 Blood count smear mcrscp w/mnl difrntl wbc count Mariela Olson SENIOR WATER RESOURCES ENGINEER-C Work Phone: Start: 11-20-2024 Mean corpuscular hemoglobin concentration determination Mariela Olson SENIOR WATER RESOURCES ENGINEER-C Work Phone: Start: 11-20-2024 Nucleated red blood cell count procedure Mariela Olson SENIOR WATER RESOURCES ENGINEER-C Work Phone: Start: 11-20-2024 Platelet mean volume determination Mariela Olson SENIOR WATER RESOURCES ENGINEER-C Work Phone: Start: 11-19-2024 Colonoscopy Mariela Olson SENIOR WATER RESOURCES ENGINEER-C Work Phone: Start: 11-19-2024 Estimated creatinine clearance Mariela burrell SENIOR WATER RESOURCES ENGINEER-C Work Phone: Start: 11-18-2024 Computed tomography of abdomen and pelvis with intravenous contrast Mariela Olson SENIOR WATER RESOURCES ENGINEER-C Work Phone: Start: 11-09-2024 Computerized ophthalmic imaging retina Darrel Pringle Start: 11-09-2024 Eylea Free Drug Darrel Pringle Start: 11-09-2024 Intravitreal njx pharmacologic agt spx Darrel Pringle Start: 11-07-2024 Blood count smear mcrscp w/mnl difrntl wbc count Mariela Olson SENIOR WATER RESOURCES ENGINEER-C Work Phone: Start: 11-07-2024 Estimated creatinine clearance Mariela burrell SENIOR WATER RESOURCES ENGINEER-C Work Phone: Start: 11-07-2024 Mean corpuscular hemoglobin concentration determination Mariela Olson SENIOR WATER RESOURCES ENGINEER-C Work Phone: Start: 11-07-2024 Nucleated red blood cell count procedure Mariela Olson SENIOR WATER RESOURCES ENGINEER-C Work Phone: Start: 11-07-2024 Platelet mean volume determination Mariela Olson SENIOR WATER RESOURCES ENGINEER-C Work Phone: Start: 11-06-2024 Flexible fiberoptic sigmoidoscopy Mariela Olson SENIOR WATER RESOURCES ENGINEER-C Work Phone: Start: 11-06-2024 Clostridium difficile detection Mariela cruz SENIOR WATER RESOURCES ENGINEER-C Work Phone: Start: 11-06-2024 Lactoferrin measurement Mariela Olson SENIOR WATER RESOURCES ENGINEER- C Work Phone: Start: 11-06-2024 Nucleic acid assay Mariela Olson SENIOR WATER RESOURCES ENGINEER-C Work Phone: Start: 11-06-2024 Ova OR parasites identification Mariela gamezar SENIOR WATER RESOURCES ENGINEER-C Work Phone: Start: 11-06-2024 Ova&parasites direct smears concentration & id Mariela Olson SENIOR WATER RESOURCES ENGINEER-C Work Phone: Start: 11-06-2024 Iadna-dna/rna gi pthgn multiplex probe tq 6-11 Mariela Olson SENIOR WATER RESOURCES ENGINEER-C Work Phone: Start: 11-06-2024 Osmolality measurement, serum Mariela vaca SENIOR WATER RESOURCES ENGINEER-C Work Phone: Start: 11-06-2024 Serum inorganic phosphate measurement Mariela Olson SENIOR WATER RESOURCES ENGINEER-C Work Phone: Start: 11-06-2024 Total iron binding capacity measurement Mariela Olson SENIOR WATER RESOURCES ENGINEER-C Work Phone: Start: 11-05-2024 Computed tomography of abdomen and pelvis with contrast Mariela Olson SENIOR WATER RESOURCES ENGINEER-C Work Phone: Start: 11-05-2024 Assay of lactate Mariela Olson SENIOR WATER RESOURCES ENGINEER-C Work Phone: Start: 11-05-2024 Calculation of international normalized ratio Mariela Olson SENIOR WATER RESOURCES ENGINEER-C Work Phone: Start: 11-05-2024 Measurement of occult blood in stool specimen using immunoassay Mariela Oslon SENIOR WATER RESOURCES ENGINEER-C Work Phone: Start: 10-24-2024 Urine microscopy: red cells Mariela Olson SENIOR WATER RESOURCES ENGINEER-C Work Phone: Start: 10-24-2024 Urnls dip stick/tablet reagent auto microscopy Mariela Olson SENIOR WATER RESOURCES ENGINEER-C Work Phone: Start: 10-24-2024 Blood count smear mcrscp w/mnl difrntl wbc count Mariela Olson SENIOR WATER RESOURCES ENGINEER-C Work Phone: Start: 10-24-2024 Estimated creatinine clearance Mariela burrell SENIOR WATER RESOURCES ENGINEER-C Work Phone: Start: 10-24-2024 Mean corpuscular hemoglobin concentration determination Mariela Olson SENIOR WATER RESOURCES ENGINEER-C Work Phone: Start: 10-24-2024 Nucleated red blood cell count procedure Mariela Olson SENIOR WATER RESOURCES ENGINEER-C Work Phone: Start: 10-24-2024 Platelet mean volume determination Mariela Olson SENIOR WATER RESOURCES ENGINEER-C Work Phone: Start: 10-24-2024 Triacylglycerol lipase measurement Mariela Olson SENIOR WATER RESOURCES ENGINEER-Jenifer Work Phone: Start: 10-24-2024 Ultrasound of scrotum with Doppler and color flow imaging Mariela Olson SENIOR WATER RESOURCES ENGINEER-C Work Phone: Start: 10-24-2024 Computed tomography of abdomen and pelvis with intravenous contrast Mariela Olson SENIOR WATER RESOURCES ENGINEER-C Work Phone: Start: 10-24-2024 Carcinoembryonic antigen cea Mariela guzman SENIOR WATER RESOURCES ENGINEER-C Work Phone: Comment on above: Nonsmokers <3.9 Smokers <5.6Roche [employer] Electrochemiluminescence Immunoassay(ECLIA)Values obtained with different assay methods or kitscannot be used interchangeably. Results cannot beinterpreted as absolute evidence of the presence orabsence of malignant disease.Performed at: [facility] [id number] Director: Jian Paredes PhD, Phone: [phone] Start: 10-24-2024 Estimated creatinine clearance Mariela burrell NP-C Work Phone: Start: 10-24-2024 Mean corpuscular hemoglobin concentration determination Mariela Olson NP-C Work Phone: Start: 10-24-2024 Nucleated red blood cell count procedure Mariela Olson SENIOR WATER RESOURCES ENGINEER-C Work Phone: Start: 10-24-2024 Platelet mean volume determination Mariela Olson SENIOR WATER RESOURCES ENGINEER-C Work Phone: Start: 10-24-2024 Procedure Mariela Olson SENIOR WATER RESOURCES ENGINEER-C Work Phone: Start: 10-17-2024 Urine microscopy: red cells Mariela Olson SENIOR WATER RESOURCES ENGINEER-C Work Phone: Start: 10-17-2024 Urnls dip stick/tablet reagent auto microscopy Mariela Olson SENIOR WATER RESOURCES ENGINEER-C Work Phone: Start: 09-07-2024 End: 09-07-2024 Computerized ophthalmic imaging retina Darrel Pringle MD Start: 09-07-2024 End: 09-07-2024 Eylea 1mg Pre-filled Syringe Darrel howard MD Start: 09-07-2024 Eylea 1mg Pre-filled Syringe Darrel howard Start: 09-07-2024 End: 09-07-2024 Eylea Free Drug Darrel Pringle MD Start: 09-07-2024 End: 09-07-2024 Intravitreal njx pharmacologic agt spx Darrel Pringle MD Start: 09-05-2024 Albumin/Globulin ratio Mariela Olson SENIOR WATER RESOURCES ENGINEER-C Work Phone: Start: 09-05-2024 Anion gap measurement Mariela Olson SENIOR WATER RESOURCES ENGINEER-C Work Phone: Start: 09-05-2024 Blood count smear mcrscp w/mnl difrntl wbc count Mariela Olson SENIOR WATER RESOURCES ENGINEER-C Work Phone: Start: 09-05-2024 BUN/Creatinine ratio Mariela Olson SENIOR WATER RESOURCES ENGINEER-C Work Phone: Start: 09-05-2024 Mean corpuscular hemoglobin concentration determination Mariela Olson SENIOR WATER RESOURCES ENGINEER-C Work Phone: Start: 09-05-2024 Measurement of renal function Mariela Schwartz ar SENIOR WATER RESOURCES ENGINEER-C Work Phone: Comment on above: GFR Calc Start: 09-05-2024 Nucleated red blood cell count procedure Mariela Olson SENIOR WATER RESOURCES ENGINEER-C Work Phone: Start: 09-05-2024 Platelet mean volume determination Mariela Olson SENIOR WATER RESOURCES ENGINEER-C Work Phone: Start: 07-18-2024 Carcinoembryonic antigen cea Mariela Cifuentesga r SENIOR WATER RESOURCES ENGINEER-C Work Phone: Comment on above: Nonsmokers <3.9 Smokers <5.6Roche [employer]o stics Electrochemiluminescence Immunoassay(ECLIA)Values obtained with different assay methods or kitscannot be used interchangeably. Results cannot beinterpreted as absolute evidence of the presence orabsence of malignant disease.Performed at: [facility] [address] [place], [place] [id number] Director: Jian Paredes PhD, Phone: [phone] Start: 07-18-2024 Measurement of renal function Mariela vaca SENIOR WATER RESOURCES ENGINEER-C Work Phone: Comment on above: GFR Calc Start: 07-13-2024 End: 07-13-2024 Computerized ophthalmic imaging retina Darrel Pringle MD Start: 07-13-2024 End: 07-13-2024 Eylea Free Drug Darrel Pringle MD Start: 07-13-2024 Eylea Free Drug Darrel Pringle Start: 07-13-2024 End: 07-13-2024 Intravitreal njx pharmacologic agt spx Darrel Pringle MD Start: 07-04-2024 Calculation of international normalized ratio Mariela Olson SENIOR WATER RESOURCES ENGINEER-C Work Phone: Start: 05-29-2024 Positron emission tomography with computed tomography Mariela Olson SENIOR WATER RESOURCES ENGINEER-C Work Phone: Start: 05-25-2024 End: 05-25-2024 Computerized ophthalmic imaging retina Darrel Pringle MD Start: 05-25-2024 End: 05-25-2024 Eylea Free Drug Darrel Pringle MD Start: 05-25-2024 Eylea Free Drug Darrel Pringle Start: 05-25-2024 End: 05-25-2024 Intravitreal njx pharmacologic agt spx Darrel Pringle MD Start: 05-16-2024 Ferritin measurement Mariela Olson SENIOR WATER RESOURCES ENGINEER-C Work Phone: Start: 05-16-2024 Immature reticulocyte fraction Mariela burrell SENIOR WATER RESOURCES ENGINEER-C Work Phone: Start: 05-16-2024 Total iron binding capacity measurement Mariela Olson SENIOR WATER RESOURCES ENGINEER-C Work Phone: Start: 03-30-2024 End: 03-30-2024 Computerized [...] 06-29-2023 End: 06-29-2023 Eylea Free Drug Darrel Pringel MD Start: 06-29-2023 End: 06-29-2023 Intravitreal njx [...] bypass grafting Hx of CABG Malinda Webster SENIOR WATER RESOURCES ENGINEER-C Comment on above: FUNG in situ mammary [...] 04-01-2025 Influenza vaccination Influenza Vaccine (Season Ended) [facility] Start: 02-11-2025 Hospital admission, emergency, from emergency room, medical nature [facility] Start: 02-11-2025 Centesis [facility] Start: 02-11-2025 Verification routine [facility] Start: 02-11-2025 Admission procedure [facility] Start: 01-14-2025 Patient discharge [facility] Start: 01-09-2025 Patient referral [facility] Work Phone: Start: 12-05-2024 Catheterization of vein [facility] Start: 12-05-2024 Oxygen therapy [facility] Start: 12-05-2024 Patient discharge [facility] Start: 12-05-2024 Vital signs measurements [facility] Start: 12-05-2024 Following clinical pathway protocol [facility] Start: 12-05-2024 [facility] Start: 11-20-2024 Patient discharge [facility] Start: 11-18-2024 Application of intermittent pneumatic compression device [facility] Start: 11-18-2024 Following clinical pathway protocol [facility] Start: 11-18-2024 Ambulation without limitation [facility] Start: 11-18-2024 Assessment of risk of venous thromboembolism [facility] Start: 11-18-2024 Insertion of catheter into peripheral vein [facility] Start: 11-18-2024 Providing care according to standard [facility] Start: 11-18-2024 Referral to gastroenterology service [facility] Start: 11-18-2024 [facility] Start: 11-18-2024 Verification routine [facility] Start: 11-18-2024 Admission procedure [facility] Start: 11-18-2024 Patient referral to dietitian [facility] Start: 11-09-2024 Jared Raymond 8 Weeks/ / MAY/ POSS EYLEA/ PAP [facility] Work Phone: Start: 11-07-2024 Patient discharge [facility] Start: 11-07-2024 Care planning and problem solving actions [facility] Start: 11-06-2024 Ova and Parasites Ova and Parasites [facility] Start: 11-06-2024 Enteric precautions [facility] Start: 11-06-2024 Application of intermittent pneumatic compression device [facility] Start: 11-06-2024 Following clinical pathway protocol [facility] Start: 11-06-2024 Assessment of risk of venous thromboembolism [facility] Start: 11-06-2024 Documentation procedure [facility] Start: 11-06-2024 Insertion of catheter into peripheral vein [facility] Start: 11-06-2024 Measuring intake and output [facility] Start: 11-06-2024 Oxygen therapy [facility] Start: 11-06-2024 Providing care according to standard [facility] Start: 11-06-2024 Provision of activity privileges [facility] Start: 11-06-2024 Referral to gastroenterology service [facility] Start: 11-06-2024 Referral to service [facility] Start: 11-06-2024 [facility] Start: 11-06-2024 Admission procedure [facility] Start: 11-06-2024 Verification routine [facility] Start: 11-06-2024 Hospital admission, emergency, from emergency room, medical nature [facility] Start: 11-06-2024 Patient referral to dietitian [facility] Start: 11-06-2024 [facility] Start: 10-24-2024 [facility] Start: 10-24-2024 [facility] Start: 09-07-2024 Smoking cessation education Tobacco cessation counseling [facility] Start: 08-01-2024 Advance Directive Discussion Advance Directive Discussion [facility] Start: 07-13-2024 Smoking cessation education Tobacco cessation counseling [facility] Start: 07-04-2024 Patient referral [facility] Work Phone: Start: 04-01-2024 Covid-19 Vaccine () Covid-19 Vaccine () [facility] Start: 03-30-2024 Smoking cessation education Tobacco cessation counseling [facility] Start: 02-10-2024 Smoking cessation education Tobacco cessation counseling [facility] Start: 12-21-2023 Smoking cessation education Tobacco cessation counseling [facility] Start: 12-11-2023 [facility] Start: 08-16-2023 Patient discharge [facility] Start: 08-15-2023 Following clinical pathway protocol [facility] Start: 08-15-2023 Notification of physician [facility] Start: 08-15-2023 [facility] Start: 08-15-2023 Admission procedure [facility] Start: 08-15-2023 Hospital admission, emergency, from emergency room, medical nature [facility] Start: 08-15-2023 Patient referral to dietitian [facility] Start: 06-29-2023 Smoking cessation education Tobacco cessation counseling [facility] Start: 05-11-2023 Smoking cessation education Tobacco cessation counseling [facility] Start: 05-05-2023 DIABETES SCREEN DIABETES SCREEN [facility] Start: 05-05-2023 Diabetes Screening Diabetes Screening [facility] Start: 03-30-2023 Smoking cessation education Tobacco cessation counseling [facility] Start: 01-19-2023 Smoking cessation education Tobacco cessation counseling [facility] Start: 12-08-2022 Smoking cessation education Tobacco cessation counseling [facility] Start: 09-29-2022 Smoking cessation education Tobacco cessation counseling [facility] Start: 09-01-2022 Smoking cessation education Tobacco cessation counseling [facility] Start: 04-01-2022 Influenza vaccination INFLUENZA (#1) [facility] Start: 08-01-2021 ADVANCE DIRECTIVE DISCUSSION ADVANCE DIRECTIVE DISCUSSION [facility] Start: 05-05-2021 Hepatitis B surface antibody level LDL CHOLESTEROL [facility] Start: 08-03-2020 ANNUAL PCP TEAM CHRONIC DISEASE VISIT ANNUAL PCP TEAM CHRONIC DISEASE VISIT [facility] Start: 07-20-2020 Adult depression screening assessment DEPRESSION SCREENING [facility] Start: 2019 RSV Vaccine (1 - 1-dose 75+ series) RSV Vaccine (1 - 1-dose 75+ series) [facility] Start: 03-01-2009 Medicare Annual Wellness Visit Medicare Annual Wellness Visit [facility] Start: 1994 Pneumococcal Vaccine: 50+ (1 of 1 - PCV) Pneumococcal Vaccine: 50+ (1 of 1 - PCV) [facility] Start: 1994 SHINGRIX VACCINE (1 of 2) SHINGRIX VACCINE (1 of 2) [facility] Start: 1963 Urine microalbumin profile [facility] Start: 1962 Annual PCP Team Chronic Disease Visit Annual PCP Team Chronic Disease Visit [facility] Start: 1962 Anxiety Screening Anxiety Screening [facility] Start: 1962 BP CONTROLLED (<130/80) BP CONTROLLED (<130/80) [facility] Start: 1962 Depression Screening Depression Screening [facility] Start: 1962 HEPATITIS C SCREENING HEPATITIS C SCREENING [facility] Start: 1950 PNEUMOCOCCAL: 65+ (1 - PCV) PNEUMOCOCCAL: 65+ (1 - PCV) [facility] Start: 1944 COVID-19 VACCINE (#1) COVID-19 VACCINE (#1) [facility] Anion gap in Serum o r Plasma [facility] BUN/Creatinine ratio [facility] Calcium [Mass/volume ] in Serum or Plasma [facility] Carbon dioxide, tota l [Moles/volume] in Central venous blood [facility] Carcinoembryonic Ag [Mass/volume] in Serum or Plasma [facility] Carcinoembryonic Ag [Mass/volume] in Serum or Plasma [facility] Carcinoembryonic Ag [Mass/volume] in Serum or Plasma [facility] CBC W Auto Different ial panel - Blood [facility] Comprehensive metabo lic 2000 panel - Serum or Plasma [facility] Creatinine [Mass/vol ume] in Serum or Plasma [facility] CT Abdomen and Pelvi s W contrast IV [facility] Erythrocyte mean corpuscular volume determination [facility] Ferritin [Mass/volum e] in Serum or Plasma [facility] Glucose [Mass/volume ] in Serum or Plasma [facility] Hematocrit [Volume Fraction] of Blood [facility] Hemoglobin [Mass/vol ume] in Blood [facility] Iron and Iron bindin g capacity panel - Serum or Plasma [facility] Leukocytes [#/volume ] in Blood [facility] Magnesium measurement [facility] Mean corpuscular hem oglobin concentration determination [facility] Mean corpuscular hem oglobin determination [facility] Measurement of renal function [facility] Neutrophil count [facility] Neutrophil percent differential count [facility] Ova OR parasites identification [facility] Patient Education [facility] Work Phone: Patient referral [facility] Work Phone: Platelets [#/volume] in Blood [facility] Potassium measurement [facility] Red blood cell count [facility] Red cell distributio n width determination [facility] Serum chloride measurement [facility] Sodium measurement [facility] Urea nitrogen [Mass/ volume] in Serum or Plasma [facility] Immunizations Immunization Date Immunization Notes Care Provider Fa [facility] 08-03-2019 influenza virus vacc ine, unspecified formulation Papi Hernandez MD Work Phone: [facility] Payers Date Payer Category Payer Medicare [id number] 2024 Self-pay [id number] 2024 Self-pay [id number] 2022 Self-pay 0 [id number] 2009 Medicare MEDICARE [id number] 1944 Unknown [id number] 2.0.1.824171.3.579.2.134 7 1944 Unknown [id number] .0.1.645693.3.579.2.134 7 1944 Unknown [id number] 2.840.1.457251.3.579.2.134 7 1944 Unknown [id number] 2.16840.1.606323.3.579.2.134 7 1944 Unknown [id number] 2.0.1.584614.3.579.2.134 7 1944 Unknown [id number] 2.160.1.761957.3.579.2.134 7 Unknown [id number] 2.16.840.1.786198.3.579.2.462 Unknown [id number] 2.16.840.1.076774.3.579.2.462 Unknown [id number] 2.16.840.1.547571.3.579.2.462 Unknown [id number] 2.16.840.1.574702.3.579.2.462 Unknown [id number] 2.16840.1.833537.3.579.2.462 Unknown [id number] 2.840.1.773994.3.579.2.462 Unknown [id number] 2.840.1.504686.3.579.2.462 Unknown [id number] 2.840.1.892187.3.579.2.462 Unknown [id number] 2.840.1.662427.3.579.2.462 Unknown [id number] 2.840.1.636173.3.579.2.462 Unknown [id number] 2.840.1.913840.3.579.2.462 Unknown [id number] 2.840.1.402476.3.579.2.462 Unknown [id number] 2.840.1.022598.3.579.2.462 Unknown [id number] 2.840.1.753815.3.579.2.462 Unknown [id number] 2.840.1.337650.3.579.2.462 Unknown [id number] 2.840.1.266260.3.579.2.462 Unknown [id number] 2.16.840.1.772290.3.579.2.462 Unknown [id number] 2.16840.1.280755.3.579.2.462 Unknown [id number] 2.840.1.586422.3.579.2.462 Unknown [id number] 2.16.840.1.832136.3.579.2.462 Unknown [id number] 2.16.840.1.176547.3.579.2.462 Unknown [id number] 2.16.840.1.758145.3.579.2.462 Unknown [id number] 2.16.840.1.578204.3.579.2.462 Unknown [id number] 2.16.840.1.524678.3.579.2.462 Unknown [id number] 2.16.840.1.218990.3.579.2.462 Unknown [id number] 2.16.840.1.499418.3.579.2.462 Unknown [id number] 2.16.840.1.541099.3.579.2.462 Unknown [id number] 2.840.1.677793.3.579.2.462 Unknown [id number] 2.840.1.765059.3.579.2.462 Unknown [id number] 2.840.1.523251.3.579.2.462 Unknown [id number] 2.16.840.1.758272.3.579.2.462 Unknown [id number] 2.16840.1.816156.3.579.2.462 Unknown [id number] 2.16.840.1.412630.3.579.2.462 Unknown [id number] 2.16.840.1.261982.3.579.2.462 Unknown [id number] 2.16.840.1.857408.3.579.2.462 Unknown [id number] 2.16.840.1.673228.3.579.2.462 Unknown [id number] 2.16.840.1.288842.3.579.2.462 Unknown [id number] 2.16.840.1.395943.3.579.2.462 Unknown [id number] 2.16.840.1.601020.3.579.2.462 Unknown [id number] 2.16.840.1.045522.3.579.2.462 Unknown [id number] 2.16.840.1.408091.3.579.2.462 Unknown [id number] 2.16.840.1.913597.3.579.2.462 Unknown [id number] 2.16.840.1.579965.3.579.2.462 Unknown [id number] 2.16.840.1.457250.3.579.2.462 Unknown [id number] 2.16.840.1.861127.3.579.2.462 Unknown [id number] 2.840.1.959379.3.579.2.462 Unknown [id number] 2.16840.1.601938.3.579.2.462 Unknown [id number] 2.16840.1.062209.3.579.2.462 Unknown [id number] 2.16840.1.501760.3.579.2.462 Unknown [id number] 2.16.840.1.087671.3.579.2.462 Unknown [id number] 2.16840.1.857415.3.579.2.462 Unknown [id number] 2.16840.1.997651.3.579.2.462 Unknown [id number] 2.16.840.1.799317.3.579.2.462 Unknown [id number] 2.16.840.1.941414.3.579.2.462 Unknown [id number] 2.16.840.1.719965.3.579.2.462 Unknown [id number] 2.16.840.1.824972.3.579.2.462 Unknown [id number] 2.16840.1.628895.3.579.2.462 Unknown [id number] 2.16.840.1.618206.3.579.2.462 Unknown [id number] 2.16.840.1.641274.3.579.2.462 Unknown [id number] 2.16.840.1.743234.3.579.2.462 Unknown [id number] 2.16.840.1.160634.3.579.2.462 Unknown [id number] 2.16.840.1.781706.3.579.2.462 Unknown [id number] 2.16.840.1.418764.3.579.2.462 Unknown [id number] 2.16.840.1.515231.3.579.2.462 Unknown [id number] 2.16840.1.669756.3.579.2.462 Unknown [id number] 2.16.840.1.635448.3.579.2.462 Unknown [id number] 2.16.840.1.112034.3.579.2.462 Unknown [id number] Unknown [id number] Unknown [id number] Unknown [id number] Unknown [id number] Unknown [id number] Social History Date Type Detail Facility Start: 08-01-1959 End: 05-05-2020 Tobacco smoking status WAIS Occasional tobacco smoker [facility] End: 08-01-1993 History of tobacco use Cigar Smoker [facility] Start: 05-07-2019 End: 07-06-2020 Cigarettes smoked current (pack per day) - Reported 1 [facility] Start: 05-07-2019 End: 05-05-2020 Tobacco use and exposure Smokeless tobacco non-user [facility] Start: 05-05-2020 Alcohol intake Current non-dr sample driller of alcohol (finding) [facility] Start: 05-07-2019 Tobacco Comment smokes occasio nal cigars. quit cigarettes in 1993 [facility] Start: 1945 Sex Assigned At Not on file C [facility] Start: 03-06-2018 End: 09-07-2024 Tobacco smoking status WAIS Unknown if ever smoked [facility] Start: 01-25-2023 None [facility] Start: 10-31-2014 Spouse/ Signif icant Other [facility] Start: 01-25-2023 Cigarettes [facility] Start: 1945 Sex Assigned At Male W [facility] Start: 09-07-2024 Alcohol intake Alcohol Use Details C [facility] Start: 10-24-2024 End: 02-11-2025 Tobacco smoking status NHIS Ex-smoker (finding) [facility] Start: 10-24-2024 End: 11-20-2024 Sex Male (finding) [facility] Start: 08-01-1958 End: 08-01-1993 History of tobacco use Cigarette Smoker [facility] Start: 05-05-2020 End: 07-06-2020 Tobacco use panel [facility] PHQ2 Score 0 [facility] NEGATED: Highlighted rowStart: 09-07-2024 History of tobacco use Ex-cigarette smoker [facility] Medical Equipment Procedure Code Equipment Code Equipment Origin al Text Equipment Identifier Dates Sigmoidoscopy, flexible [id number] FDA Start: 11-06-2024 Colonoscopy ()[id number] FDA Start: 04-13-2024 Colonoscopy ()[id number] [id number] FDA Start: 11-19-2024 Co[place]ans Thk1.65mm P tfe 4x.5in Cardiovascular Sterile - [id number] Start: 07-19-2019 CLIP,HEMDENILSON HARDY FDA Sta rt: 04-27-2024 CLIP,HEMDENILSON SHEPHERD FDA St art: 04-27-2024 ()[id number] FDA Start: 04-27-2024 ()[id number] [id number] FDA Start: 04-27-2024 CLIP,HEMDENILSON SHEPHERD FDA Sta rt: 04-27-2024 CLIP,HEMDENILSON SHEPHERD FDA St art: 04-27-2024 CLIP,HEMDENILSON SHEPHERD FDA Sta rt: 04-27-2024 CLIP,HEMDENILSON SHEPHERD FDA St art: 04-27-2024 CLIP,HEMDENILSON SHEPHERD FDA Sta rt: 04-27-2024 CLIP,HEMDENILSON SHEPHERD FDA St art: 04-27-2024 CLIP,HEMDENILSON SHEPHERD FDA Sta rt: 04-27-2024 CLIP,HEMDENILSON SHEPHERD FDA St art: 04-27-2024 CLIP,HEMDENILSON SHEPHERD FDA Sta rt: 04-27-2024 CLIP,HEMDENILSON SHEPHERD FDA St art: 04-27-2024 CLIP,HEMDENILSON SHEPHERD FDA Sta rt: 04-27-2024 CLIP,HEMDENILSON SHEPHERD FDA St art: 04-27-2024 FDA Start: 04-27-2024 FDA Start: 04-27-2024 CLIP,SAWYER LERNER [employer] FDA Sta rt: 04-27-2024 CLIP,HEMDENILSON G[facility]IA [facility] FDA St art: 04-27-2024 FDA Start: 04-27-2024 FDA Start: 04-27-2024 FDA Start: 04-27-2024 FDA Start: 04-27-2024 FDA Start: 04-27-2024 FDA Start: 04-27-2024 FDA Start: 04-27-2024 FDA Start: 04-27-2024 Goals Date Patient Goal Desired Activity /State Functional Status Date Assessment Result Facility 11-20-2024 Functional status Ambulates [facility] Work Phone: 11-07-2024 Functional status Ambulates;Up ad raghavendra [facility] Work Phone: 08-16-2023 Functional status Ambulates;Bath room Privilege [facility] Work Phone: 08-15-2023 Functional status Tolerates Activity Well [facility] Work Phone: 07-23-2019 Are you deaf, or do you have serious difficulty hearing No 07/23/2019 4:22 PM Isaac Guzman APRN.FURNACE PROCESS PLANT OPERATOR No [facility] Work Phone: 07-23-2019 Are you blind, or do you have serious difficulty seeing, even when wearing glasses No 07/23/2019 4:22 PM Isaac Guzman APRN.FURNACE PROCESS PLANT OPERATOR No [facility] 07-23-2019 Do you have serious difficulty walking or climbing stairs No 07/23/2019 4:22 PM Isaac Guzman APRN.FURNACE PROCESS PLANT OPERATOR No [facility] 07-23-2019 Do you have difficul ty dressing or bathing No 07/23/2019 4:22 PM Isaac Guzman, TASH.FURNACE PROCESS PLANT OPERATOR No [facility] 07-23-2019 Because of a physica l, mental, or emotional condition, do you have difficulty doing errands alone such as visiting a physician's office or shopping No 07/23/2019 4:22 PM Isaac Guzman, TASH.FURNACE PROCESS PLANT OPERATOR No [facility] Mental Status Date Assessment Result Facility 02-11-2025 Cognitive function Awake;Alert;A ppropriate;Fol lows Commands [facility] Work Phone: 12-05-2024 Cognitive function Voice/Name [facility] Work Phone: 12-05-2024 Cognitive function Awake;Alert;A ppropriate;Fol lows Commands [facility] Work Phone: 11-20-2024 Cognitive function Voice/Name [facility] Work Phone: 11-07-2024 Cognitive function Voice/Name [facility] Work Phone: 08-16-2023 Cognitive function Voice/Name [facility] Work Phone: 08-15-2023 Cognitive function Level Of Cons ciousness Awake;Alert;Appropriate;Fol lows Commands [facility] Work Phone: 07-23-2019 Because of a physica l, mental, or emotional condition, do you have serious difficulty concentrating, remembering, or making decisions No 07/23/2019 4:22 PM Isaac Guzman APRN.FURNACE PROCESS PLANT OPERATOR No [facility] Clinical Notes 07-19-2019 to 02-11-2025 Note Date & Type Note Facility 02-11-2025 Radiology Diagnostic study note [facility] 02-10-2025 Radiology Diagnostic study note [facility] 02-05-2025 Note Patient sched for fi nancial counseling and CTA/VC appts. I will mail her SENIOR WATER RESOURCES ENGINEER packet and make chart. [facility] 01-13-2025 History and physical note Note Date/Time January 13, 2025 7:57am [facility] Medical Records Department [address] [place] [address] History & Physical Exam 01/06/25 0808 MR#: [id number] Acct: [id number] Name: JARED RAYMOND Rep #:[id number] : 1945 79 From: Adrian Flores MD PCP: MARYAM Guerra Status:PRE [facility] Location: [facility] History and Physical Date of Admission: [...] Vital Signs: See EMR Intake Visit Reasons: [facility] Mask Inspector Required: No Is patient in pain?: No Allergies No Known Allergies Allergy (Verified 10/17/24 14:22) Medications: See EMR Ejection fraction %: 70 Have you fallen in the past year?: No [facility] Medical History (Updated 10/17/24 @ 14:43 by Malinda Webster SENIOR WATER RESOURCES ENGINEER, SENIOR WATER RESOURCES ENGINEER-C) Encounter for education Pre-op testing Wears dentures [...] 0757 <Electronically signed by Malinda FRANCISCO> CC: SENIOR WATER RESOURCES ENGINEER-Jenifer Webster; MARYAM Olson; Dr. Adrian Flores MD~ Signed [facility] Work Phone: 1(781) 181-771106-08-2025 [facility]05-17-2025 Radiology Diagnostic study [facility]05-07-2025 Radiology Diagnostic study note [facility] Imaging Services [address] [place] [address] Biopsy/Inj or Needle Placement MR#: [id number] Acct: [id number] Name: JARED RAYMOND Rep #: [id number] : 1945 M 79 From: Esdras Watts MD PCP: MARYAM Guerra Status: REG CLI Study:Biopsy/Inj or Needle Placement Date of Exam: 12/05/24 Exam# [id number] Ordering Dr: Brenda Araujo MD PROCEDURE: BIOPSY/INJ [...] core biopsy. Pathology results pending. Reading Location: [place] [address] CC: SENIOR WATER RESOURCES ENGINEER-C Mariela Olson; Dr. Brenda Araujo MD ~ [employer]: Signed [facility]05-04-2025 Radiology Diagnostic study [facility]04-22-2025 Discharge summary Author Neville Jang [facility] Note Date/Time November 20, 2024 1:2 2pm [facility] Medical Records Department [address] [place] [address] Instructions for Home/Discharge Instructions 11/20/24 1241 MR#: [id number] Acct: [id number] Name: JARED RAYMOND Rep #:[id number] : 1945 79 From: Neville Jang DO [...] [Primary Care Provider] - Selam Craig NP, NP-C [Med Staff - [facility] Practice Prof] - See Referral Note (Theoffice will call you to confirm an appointment time) Disposition Disposition (needs filled in before D/C Order can be placed): Home, Self Care 11/20/24 1322<Electronically signed by Neville Jang DO>Neville Jang DO CC: SENIOR WATER RESOURCES ENGINEER-C Mariela Olson; Dr. Kelvin Schrader MD ~ Signed [facility] Work Phone: 1(304) 476-899804-22-2025 Consult note [facility] Medical Records Department [address] [place] [address] Counseling Note - Pharmacy 11/20/24 1342 MR#: [id number] Acct: [id number] Name: JARED RAYMOND Rep #:[id number] : 1945 79 From: Kush Daniel PCP: MARYAM Guerra Status:ADM IN Y Location: [place] [address]-[address] [facility] [place] [facility] Reconciliation Pharmacy Service has performed discharge [...] Signature (if applicable): Date CC: ~ Signed [facility]04-22-2025 Discharge summary [facility] Medical Records Department [address] [place] [address] Instructions for Home/Discharge Instructions 11/20/24 1241 MR#: [id number] Acct: [id number] Name: JARED RAYMOND Rep #:[id number] : 1945 79 From: Neville Jang DO [...] [Primary Care Provider] - Selam Craig NP, NP-C [Med Staff - [facility] Practice Prof] - See Referral Note (Theoffice will call you to confirm an appointment time) Disposition Disposition (needs filled in before D/C Order can be placed): Home, Self Care 11/20/24 1322Mark Svenky DO CC: SENIOR WATER RESOURCES ENGINEER-C Mariela Olson; Dr. Kelvin Schrader MD ~ Signed [facility]04[facility]22[facility] Consult note Author Keo Burgos [facility] Note Date/Time November 20, 2024 9:5 5am [facility] Medical Records Department [address] [place] [address] Anesthesia Postop Eval II 11/20/24 0952 MR#: [id number] Acct: [id number] Name: JARED RAYMOND Rep #:[id number] : 1945 79 From: Keo Burgos MD PCP: MARYAM Guerra Status:ADM IN Y Race: C Location: [address] Anesthesia Postop Eval I Sum Postop Eval [...] No Complications Anesthesia Complication: No 11/20/24 0955 <Electronically signed by Keo mathew MD> Date _ [facility] Signature: Date CC: ~ Signed [facility] Work Phone: 1(406) 621-256704-22-2025 Consult note [facility] Medical Records Department [address] [place] [address] Anesthesia Postop Eval II 11/20/24 0952 MR#: [id number] Acct: [id number] Name: JARED RAYMOND Rep #:[id number] : 1945 79 From: Keo Burgos MD PCP: MARYAM Guerra Status:ADM IN Y Race: C Location: [facility] -1 Anesthesia Postop Eval I Sum Postop [...] 11/20/24 0955 quincy DAVIS> Date _ Keo Vela Signature: Date CC: ~ Signed [facility]04-22-2025 Procedure note [facility] Medical Records Department [address] [place] [address] Colonoscopy Report MR#: [id number] Acct: [id number] Name: JARED RAYMOND Rep #:[id number] : 1945 79 From: Ari Silvestre DO [...] three hemostatic clips were successfully placed. Clip rooming house inspector: [employer]. There was no bleeding at the end [...] the colonic anastomosis. Clips were placed. Clip rooming house inspector: [employer]. - The examined portion of the ileum was normal. - No specimens collected. Recommendation: - [facility]. - Resume previous diet. - Continue present medications. - Repeat colonoscopy in 1 year to assess disease activity. Procedure Code(s): --- Professional --- 91364, Colonoscopy, flexible; with control of bleeding, any method 73636, 59, Colonoscopy, flexible; with directed submucosal injection(s), any substance CPT copyright 2021 [employer]. All rights reserved. The codes documented in this report are preliminary and upon wad printing machine operator review may be revised to meet current compliance requirements. Ari Silvestre DO 11/20/2024 7:56:55 AM This report has been signed electronically. Number of Addenda: 0 Note Initiated On: 11/19/2024 1:03 PM 11/20/24 0757 Date _ Ari Silvestre DO Cosigner Signature: Date (if indicated) CC: MARYAM Olson; Ari Silvestre DO ~ Date Dictated: 11/19/24 1303 Date Transcribed: Superintendent [employer]: RF Signed [facility]04-22-2025 Procedure note [facility] Medical Records Department [address] [place] [address] Operative Report - CC Letter MR#: [id number] Acct: [id number] Name: JARED RAYMOND Rep #:[id number] : 1945 79 From: Ari Silvestre DO PCP: MARYAM Guerra Status:ADM IN 11/20/2024 Maryam Guerra Re : Colonoscopy procedure for Jared Shirleyartz Dear Shahram This procedure was performed on [...] the colonic anastomosis. Clips were placed. Clip rooming house inspector: [employer]. - The examined portion of the ileum [...] ~ Date Dictated: 11/19/24 1303 Date Transcribed: Superintendent [employer]otive: RF Signed [facility]04-21-2025 Progress note Author Neville Jang [facility] Note Date/Time November 19, 2024 6:2 0pm [facility] Medical Records Department [address] [place] [address] Progress Note - Hospitalist 11/19/241815 MR#: [id number] Acct: [id number] Name: SEGUNDOJARED L Rep #:[id number] : 1945 79 From: Neville Jang DO PCP: Mariela Olson NP-C Status:ADM IN Location: [facility] SZ670-5 Reason for Visit Reason for Visit: Diagnoses [...] 73.3 H, Lymph % (Auto) 14.2 L, Carson % (Auto) 10.0, Eos % (Auto) 1.9, [...] 35 minutes Charges/Coding Visit Charges Inpatient E&M: 37655 Subs Hosp L2 11/19/24 1820 <Electronically signed by Neville Jang DO> Cosigner Signature (if applicable): CC: ~ Signed [facility] Work Phone: 1(345) 896-948604-21-2025 Progress note [facility] Medical Records Department [address] [place] [address] Progress Note - Hospitalist 11/19/241815 MR#: [id number] Acct: [id number] Name: JARED RAYMOND Rep #:[id number] : 1945 79 From: Neville Jang DO PCP: MARYAM Guerra Status:ADM IN Location: [place] [address] Reason for Visit Reason for Visit: Diagnoses [...] 73.3 H, Lymph % (Auto) 14.2 L, Carson % (Auto) 10.0, Eos % (Auto) 1.9, [...] 35 minutes Charges/Coding Visit Charges Inpatient E&M: 50055 Subs Hosp L2 11/19/24 1820 Cosigner Signature (if applicable): CC: ~ Signed [facility]04-21-2025 Consult note Author Guerrero Miller [facility] Note Date/Time November 19, 2024 2:0 5pm [facility] Medical Records Department [address] [place] [address] Anesthesia Postop Eval I 11/19/24 1402 MR#: [id number] Acct: [id number] Name: SEGUNDOJARED Kaitlin Rep #:[id number] : 1945 79 From: Guerrero Miller PCP: MARYAM Guerra Status:ADM IN Y Race: C Location: [place] [address] Anesthesia: Postop Eval I Current Vital Signs [...] Postop Eval 1 completed: Yes 11/19/24 1405 <Electronically signed by Guerrero Miller > Date _ Guerrero Vela Signature: Date CC: ~ Signed [facility] Work Phone: 1(858) 706-801704-21-2025 Consult note Author Ari Friend [facility] Note Date/Time November 19, 2024 12: 58pm [facility] Medical Records Department [address] [place] [address] Consultation - GI 11/19/24 1256 MR#: [id number] Acct: [id number] Name: JARED RAYMOND Rep #:[id number] : 1945 79 From: Ari Silvestre DO PCP: MARYAM Guerra Status:ADM IN [facility] Consult Data Date of Consult: 11/19/24 [...] presents for evaluation. He originally presented to [facility] ED on 04/11/2024 with c/o hematochezia [...] possible use of ivermectin for treatment. [facility] Medical History Diverticulosis Mediastinal [...] 73.3 H, Lymph % (Auto) 14.2 L, Carson % (Auto) 10.0, Eos % (Auto) 1.9, [...] undergo colonoscopy. Charges/Coding Visit Charges Inpatient E&M: 33348 Init Hosp L3 11/19/24 1258 <Electronically signed by Ari Friend DO> Garretter Signature (if applicable): CC: SENIOR WATER RESOURCES ENGINEER-C Mariela Olson; Dr. Kelvin Schrader MD~ Signed [facility] Work Phone: 1(921) 665-130204-21-2025 Consult note [facility] Medical Records Department [address] [place] [address] Anesthesia Postop Eval I 11/19/24 1402 MR#: [id number] Acct: [id number] Name: JARED RAYMOND Rep #:[id number] : 1945 79 From: Guerrero Miller PCP: MARYAM Guerra Status:ADM IN Y Race: C Location: [place] [address] Anesthesia: Postop Eval I Current Vital Signs [...] Anesthesia document: Postop Eval 1 completed: Yes 11/19/245 > Date _ Guerrero Vela Signature: Date CC: ~ Signed [facility]04-21-2025 Consult note Author Steven Ann [facility] Note Date/Time November 19, 2024 12: 03pm [facility] Medical Records Department [address] [place] [address] Pre-Anesthesia Evaluation 11/19/24 1202 MR#: [id number] Acct: [id number] Name: JARED RAYMOND Rep #:[id number] : 1945 79 From: Steven Ann MD PCP: MARYAM Guerra Status:ADM IN Y Race: C Location: [place] [address] ASA Classification* ASA Classification ASA Classification: 3 [...] Procedure(s): colonoscopy Anesthesia History Anesthesia History - lead producer: Anesthesia History - lead producer Hx Hospitalization Yes: 06/09/24 BIOPSY OF LIVER [...] take am of surgery PONV PONV - lead producer: PONV - lead producer Female HX of Motion Sickness HX of N/V After Surgery Non-Smoker Duration of Surgery greater than 60 minutes Number of Risk Factors PONV Score Height & Weight Height & Weight: Anesthesia: Height & Weight Height 5 ft 7.5 in 11/19/24 08:57 Weight: 68.946 kg 11/19/24 08:57 Body Mass Index (BMI) 23.4 11/19/24 08:57 Respiratory Assessment Respiratory Assessment - lead producer: Respiratory Tract Infection Hx - lead producer Hx Respiratory Tract Infection No 11/18/24 21:04 STOP Sleep Apnea STOP Sleep Apnea - lead producer: STOP Sleep Apnea - lead producer Hx Hypertension Yes 11/18/24 15:46 Hx Sleep [...] Tobacco Use History Tobacco Use History - lead producer: Tobacco Use History - lead producer Tobacco Use Cigarettes 01/25/23 14:01 Smoking Status Former smoker 11/18/24 17:39 Hx Tobacco Use Yes: Cigar 11/18/24 15:46 Years Smoking Packs Smoked per Day Smoking Cessation Date was Yes - quit smoking within 15 11/18/24 15:46 within the last 15 years years Hx Smoking Cessation Date 04/01/23 11/18/24 15:46 Hx Smoking Cessation Yes 11/18/24 15:46 Counseling Hematologic Medial History Hematologic Hx - lead producer: Hematologic Medical Hx - global regulatory lead Hx of Blood Transfusion Yes 11/18/24 15:46 [...] confused, unrespo /Reproduction History /Reproductive History - lead producer: /Reproductive Hx- lead producer Hx Now No 11/18/24 21:04 Gestational Age [...] MD Cosigner Signature: Date CC: ~ Signed [facility] Work Phone: 1(869) 228-342904-21-2025 Consult note [facility] Medical Records Department [address] [place] [address] Consultation - GI 11/19/24 1256 MR#: [id number] Acct: [id number] Name: JARED RAYMOND Rep #:[id number] : 1945 79 From: Ari Friend DO PCP: Mariela Olson NP-C Status:ADM IN Location: [facility] [id number] HPI Consult Data Date of Consult: 11/19/24 [...] presents for evaluation. He originally presented to [facility] ED on 04/11/2024 with c/o hematochezia [...] possible use of ivermectin for treatment. [facility] Medical History Diverticulosis Mediastinal [...] 73.3 H, Lymph % (Auto) 14.2 L, Carson % (Auto) 10.0, Eos % (Auto) 1.9, [...] undergo colonoscopy. Charges/Coding Visit Charges Inpatient E&M: 35225 Init Hosp L3 11/19/24 1258 Cosigner Signature (if applicable): CC: MARYAM Olson; Dr. Kelvin Schrader MD~ Signed [facility]04-21-2025 Consult note [facility] Medical Records Department [address] [place] [address] Pre-Anesthesia Evaluation 11/19/24 1202 MR#: [id number] Acct: [id number] Name: JARED RAYMOND Rep #:[id number] : 1945 79 From: Steven Ann MD PCP: Mariela Olson, SENIOR WATER RESOURCES ENGINEER-C Status:ADM IN Y Race: C Location: [place] [address] -1 ASA Classification* ASA Classification ASA Classification: [...] Procedure(s): colonoscopy Anesthesia History Anesthesia History - lead producer: Anesthesia History - lead producer Hx Hospitalization Yes: 06/09/24 BIOPSY OF LIVER [...] take am of surgery PONV PONV - lead producer: PONV - lead producer Female HX of Motion Sickness HX of N/V After Surgery Non-Smoker Duration of Surgery greater than 60 minutes Number of Risk Factors PONV Score Height & Weight Height & Weight: Anesthesia: Height & Weight Height 5 ft 7.5 in 11/19/24 08:57 Weight: 68.946 kg 11/19/24 08:57 Body Mass Index (BMI) 23.4 11/19/24 08:57 Respiratory Assessment Respiratory Assessment - lead producer: Respiratory Tract Infection Hx - lead producer Hx Respiratory Tract Infection No 11/18/24 21:04 STOP Sleep Apnea STOP Sleep Apnea - lead producer: STOP Sleep Apnea - lead producer Hx Hypertension Yes 11/18/24 15:46 Hx Sleep [...] Tobacco Use History Tobacco Use History - lead producer: Tobacco Use History - lead producer Tobacco Use Cigarettes 01/25/23 14:01 Smoking Status Former smoker 11/18/24 17:39 Hx Tobacco Use Yes: Cigar 11/18/24 15:46 Years Smoking Packs Smoked per Day Smoking Cessation Date was Yes - quit smoking within 15 11/18/24 15:46 within the last 15 years years Hx Smoking Cessation Date 04/01/23 11/18/24 15:46 Hx Smoking Cessation Yes 11/18/24 15:46 Counseling Hematologic Medial History Hematologic Hx - lead producer: Hematologic Medical Hx - global regulatory lead Hx of Blood Transfusion Yes 11/18/24 15:46 [...] confused, unrespo /Reproduction History /Reproductive History - lead producer: /Reproductive Hx- lead producer Hx Now No 11/18/24 21:04 Gestational Age [...] 25 Mg Tablet PO 25 mg DAILY EVIAT Administration Protocol Simethicone 80 mg 11/18/24 18:00 [...] MD Cosigner Signature: Date CC: ~ Signed [facility]04-20-2025 History and physical note Author Kelvin Schrader [facility] Note Date/Time November 18, 2024 4:0 6pm [facility] Medical Records Department [address] [place] [address] H&P Exam - Hospitalist 11/18/24 1335 MR#: [id number] Acct: [id number] Name: JARED RAYMOND Rep #:[id number] : 1945 79 From: Kelvin rojas MD PCP: ABDIAS GuerraC Status:ADM IN Location: [facility] IX748-8 HPI - General General Date of Admission: [...] the possibility of proceeding with chemotherapy. [facility] Medical History Diverticulosis Mediastinal [...] 71.9 H, Lymph % (Auto) 14.4 L, Carson % (Auto) 11.2 H, Eos % (Auto) [...] to the large mesenteric mass. Reading Location: [facility] Assessment & Plan Assessment/Plan (1) GI bleed: [...] Multi Select Codes Visit Charges Visit Charges: 99325 Init Hosp L2 Hospitalists' Procedures Procedures: 71049 Advncd Care Plan 30 Min 11/18/24 1606 <Electronically signed by Kelvin Schrader MD> Cosigner Signature (if applicable): CC: MARYAM Olson; Dr. Kelvin Schrader MD~ Signed [facility] Work Phone: 1(160) 925-479804-20-2025 Discharge summary Author Radha Damon [facility] Note Date/Time November 18, 2024 2:5 3pm [facility] Medical Records Department [address] [place] [address] Emergency Department Summary 11/18/24 MR#: [id number] Acct: [id number] Name: JARED RAYMOND Rep #:[id number] : 1945 79 From: Radha NJ PCP: MARYAM Guerra Status:ADM IN Location: MS3 IU664-4 HPI <ONDINA Govea - Last Filed: 11/18/24 [...] denies any fevers, chills, or vomiting. [facility] <ONDINA Govea - Last Filed: 11/18/24 14:05> [facility] Medical History Diverticulosis Mediastinal [...] <ONDINA Govea - Last Filed: 11/18/24 14:05> [facility] Narrative Medical decision making narrative: Patient presenting [...] 71.9 H Lymph % (Auto) 14.4 L Carson % (Auto) 11.2 H Eos % (Auto) [...] to the large mesenteric mass. Reading Location: [id number] <Dr. Lazaro Sharp MD - Last Filed: 11/18/24 14:53> [facility] MDM Narrative Medical decision making narrative: [...] 71.9 H Lymph % (Auto) 14.4 L Carson % (Auto) 11.2 H Eos % (Auto) [...] to the large mesenteric mass. Reading Location: [facility] CT of the abdomen pelvis was reviewed [...] made aware of patient and admit to [facility]) Procedures <Dr. Lazaro Sharp MD - Last [...] of hypertension Disposition Disposition: Acute Care Hospital [facility] What to do if you have Problems For any increased pain, shortness of breath, bleeding, nausea or vomiting, chest pain, or any unexpected problems, contact your Primary Care Provider. Call [facility] ([phone]) or report to the closest Emergency Room. Call 911 if necessary. 11/18/24 1405 <Electronically signed by Radha NJ> Cosigner Signature (if applicable): 11/18/24 1453 <Electronically signed by Lazaro Sharp MD> CC: CHRISTEL-C Mariela Olson ~ Signed [facility] Work Phone: 1(721) 182-833504-20-2025 History and physical note [facility] Medical Records Department [address] [place] [address] H&P Exam - Hospitalist 11/18/24 1335 MR#: [id number] Acct: [id number] Name: JARED RAYMOND Rep #:[id number] : 1945 79 From: Kelvin rojas MD PCP: MARYAM Guerra Status:ADM IN Location: [place] 697694-1 HPI - General General Date of Admission: [...] the possibility of proceeding with chemotherapy. [facility] Medical History Diverticulosis Mediastinal [...] 71.9 H, Lymph % (Auto) 14.4 L, Carson % (Auto) 11.2 H, Eos % (Auto) [...] to the large mesenteric mass. Reading Location: [facility] Assessment & Plan Assessment/Plan (1) GI bleed: [...] Multi Select Codes Visit Charges Visit Charges: 82476 Init Hosp L2 Hospitalists' Procedures Procedures: 12228 Advncd Care Plan 30 Min 11/18/24 1606 Cosigner Signature (if applicable): CC: MARYAM Olson; Dr. Kelvin Schrader MD~ Signed [facility]04-20-2025 Discharge summary [facility] Medical Records Department [address] [place] [address] Emergency Department Summary 11/18/24 MR#: [id number] Acct: [id number] Name: JARED RAYMOND Rep #:[id number] : 1945 79 From: Radha NJ PCP: MARYAM Guerra Status:ADM IN Location: [place] [address] HPI HPI - GI History of Present [...] denies a ny fevers, chills, or vomiting. [facility] PFS Medical History Diverticulosis Mediastinal lymphadenopathy Colon [...] 71.9 H Lymph % (Auto) 14.4 L Carson % (Auto) 11.2 H Eos % (Auto) [...] to the large mesenteric mass. Reading Location: [id number] MDM MDM Narrative Medical decision making narrative: ulceration [...] 71.9 H Lymph % (Auto) 14.4 L Carson % (Auto) 11.2 H Eos % (Auto) [...] to the large mesenteric mass. Reading Location: [id number] CT of the abdomen pelvis was reviewed [...] made aware of patient and admit to [facility]) Procedures Other Procedures Procedure(s): Anoscopy was performed. [...] of hypertension Disposition Disposition: Acute Care Hospital [facility] What to do if you have Problems For any increased pain, shortness of breath, bleeding, nausea or vomiting, chest pain, or any unexpected problems, contact your Primary Care Provider. Call [facility] ([phone]) or report to the closest Emergency Room. Call 911 if necessary. 11/18/24 1405 Cosigner Signature (if applicable): 11/18/24 1453 CC: MARYAM Olson ~ Signed [facility]04-20-2025 Discharge summary Author Radha Damon [facility] Note Date/Time November 18, 2024 2:5 3pm [facility] Medical Records Department [address] [place] [address] Emergency Department Summary 11/18/24 MR#: [id number] Acct: [id number] Name: JARED RAYMOND Rep #:[id number] : 1945 79 From: Radha NJ PCP: MARYAM Guerra Status:ADM IN Location: [place] [address] HPI <ONDINA Govea - Last Filed: 11/18/24 [...] denies any fevers, chills, or vomiting. [facility] <ONDINA Govea - Last Filed: 11/18/24 14:05> [facility] Medical History Diverticulosis Mediastinal lymphadenopathy Colon cancer [...] <ONDINA Govea - Last Filed: 11/18/24 14:05> [facility] MDM Narrative Medical decision making narrative: [...] 71.9 H Lymph % (Auto) 14.4 L Carson % (Auto) 11.2 H Eos % (Auto) [...] to the large mesenteric mass. Reading Location: [id number] <Dr. Lazaro Sharp MD - Last Filed: 11/18/24 14:53> [facility] MDM Narrative Medical decision making narrative: [...] 71.9 H Lymph % (Auto) 14.4 L Carson % (Auto) 11.2 H Eos % (Auto) [...] to the large mesenteric mass. Reading Location: [facility] CT of the abdomen pelvis was reviewed [...] made aware of patient and admit to [facility]) Procedures <Dr. Lazaro Sharp MD - Last [...] of hypertension Disposition Disposition: [facility] What to do if you have Problems For any increased pain, shortness of breath, bleeding, nausea or vomiting, chest pain, or any unexpected problems, contact your Primary Care Provider. Call [facility] ([phone]) or report to the closest Emergency Room. Call 911 if necessary. 11/18/24 1405 <Electronically signed by Radha NJ> Cosigner Signature (if applicable): 11/18/24 1453 <Electronically signed by Lazaro Sharp MD> CC: CHRISTEL-C Mariela Olson ~ Signed [facility] Work Phone: 1(539) 191-287704-20-2025 Radiology Diagnostic study note [facility] Imaging Services [address], [place] [address] Abdomen/Pelvis W IV Cont ONLY MR#: [id number] Acct: [id number] Name: JARED RAYMOND Rep #: [id number] : 1945 M 79 From: Vanessa Rosado MD PCP: Mariela Shahram, SENIOR WATER RESOURCES ENGINEER-C Status: REG ER Study:Abdomen/Pelvis W IV Cont ONLY Date of E xam: 11/18/24 Exam# [id number] Ordering Dr: Radha Sharp MD PROCEDURE: ABDOMEN/PELVIS [...] to the large mesenteric mass. Reading Location: [facility] CC: MARYAM Olson; Dr. Lazaro Sharp MD ~ [employer]: Signed [facility]04-09-2025 Discharge summary [facility] Medical Records Department [address] [place] [address] Discharge Summary 11/07/24 1655 MR#: [id number] Acct: [id number] Name: JARED RAYMOND Rep #:[id number] : 1945 79 From: Stevie Harrington DO PCP: MARYAM Guerra Status:ADM IN Location: [place] [address] Providers Date of Admission: 11/06/24 Primary Care Physician: MARYAM Guerra Consultations 11/06/24 03:28 Consult: Gastroenterology Routine Consulting Provider: [facility] Reason for Consult: LGIB with BRBPR; [...] 70.4 H, Lymph % (Auto) 14.8 L, Carson % (Auto) 12.5 H, Eos % (Auto) [...] Self Care Charges/Coding Visit Charges Inpatient E&M: 76630 Disch Hosp >30min 11/07/24 1707 Cosigner Signature (if applicable): CC: MARYAM Olson; Dr. Stevie Harrington DO~ Signed [facility]04[facility]09[facility] Progress note Author Stevie Harrington [facility] Note Date/Time November 07, 2024 12:2 7pm [facility] Medical Records Department [address] [place] [address] Progress Note - Hospitalist 11/07/24 0727 MR#: [id number] Acct: [id number] Name: JARED RAYMOND Rep #:[id number] : 1945 79 From: Stevie Harrington DO PCP: MARYAM Guerra Status:ADM IN Location: [place] [address] Reason for Visit Reason for Visit: Diagnoses [...] 78.1 H, Lymph % (Auto) 9.1 L, Carson % (Auto) 11.9 H, Eos % (Auto) [...] 70.4 H, Lymph % (Auto) 14.8 L, Carson % (Auto) 12.5 H, Eos % (Auto) [...] prophylaxis: SCDs. Charges/Coding Visit Charges Inpatient E&M: 54282 Subs Hosp L2 11/07/24 1221 <Electronically signed by Stevie Harrington DO> Cosigner Signature (if applicable): CC: ~ Signed [facility] Work Phone: 1(612) 142-704504-09-2025 Progress note [facility] Medical Records Department [address] [place] [address] Progress Note - Hospitalist 11/07/24726 MR#: [id number] Acct: [id number] Name: JARED RAYMOND Rep #:[id number] : 1945 79 From: Stevie Harrington DO PCP: MARYAM Guerra Status:ADM IN Location: [place] [address]- Reason for Visit Reason for Visit: Diagnoses [...] 23:59 23:59 23:59 Intake Total 0 / 2120 0 / 0 Balance 0 / 0 [...] 78.1 H, Lymph % (Auto) 9.1 L, Carson % (Auto) 11.9 H, Eos % (Auto) [...] 70.4 H, Lymph % (Auto) 14.8 L, Carson % (Auto) 12.5 H, Eos % (Auto) [...] prophylaxis: SCDs. Charges/Coding Visit Charges Inpatient E&M: 51624 Subs Hosp L2 11/07/24 1227 Cosigner Signature (if applicable): CC: ~ Signed [facility]04-08-2025 Consult note Author [facility] Note Date/Time November 06, 2024 8:40 pm [facility] Medical Records Department [address] [place] [address] Anesthesia Postop Eval II 11/06/242038 MR#: [id number] Acct: [id number] Name: JARED RAYMOND Rep #:[id number] : 1945 79 From: Keo Burgos MD PCP: MARYAM Guerra Status:ADM IN Y Race: C Location: [place] [address] 3-1 Anesthesia Postop Eval I Sum Postop [...] MD Cosigner Signature: Date CC: ~ Signed [facility] Work Phone: [phone]) 136-674904-08-2025 Consult note Author [facility] Note Date/Time November 06, 2024 8:00 pm [facility] Medical Records Department [address] [place] [address] Anesthesia Postop Eval I 11/06/241948 MR#: [id number] Acct: [id number] Name: SEGUNDOJARED Kaitlin Rep #:[id number] : 1945 79 From: Keo Burgos MD PCP: MARYAM Guerra Status:ADM IN Y Race: C Location: [address] Anesthesia: Postop Eval I Current Vital Signs [...] MD Cosigner Signature: Date CC: ~ Signed [facility] Work Phone: 1([phone]) 553-349804-08-2025 Consult note Author [facility] Note Date/Time November 06, 2024 7:07 pm [facility] Medical Records Department [address] [place] [address] Pre-Anesthesia Evaluation 11/06/24 1859 MR#: [id number] Acct: [id number] Name: JARED RAYMOND Rep #:[id number] : 1945 79 From: Keo Burgos MD PCP: MARYAM Guerra Status:ADM IN Y Race: C Location: [place] [address] 3 ASA Classification* ASA Classification ASA Classification: 3 [...] 04:23 11/06/24 Creatinine 0.97 mg/dL (0.70-1.20) 11/06/24 04:11/06/24 Glucose 99 mg/dL (70-99) 11/06/24 04:23 11/06/24 POC Glucose 113 mg/dL (74-106) H 04/27/24 06:06 04/27/24 TSH 1.900 uIU/mL (0.300-4.200) 11/06/24 04:23 0403/25 COAG PT 12.2 SECONDS (11.7-14.9) 11/05/24 22:42 Pre-Assessment Diagnosis/Proposed Procedure Planned Operative Procedure(s): Flexible sigmoidoscopy Anesthesia History Anesthesia History - lead producer: Anesthesia History - lead producer Hx Hospitalization Yes: 06/09/24 BIOPSY OF LIVER [...] sips of water?: Yes PONV PONV - lead producer: PONV - lead producer Female HX of Motion Sickness HX of N/V After Surgery Non-Smoker Duration of Surgery greater than 60 minutes Number of Risk Factors PONV Score Height & Weight Height & Weight: Anesthesia: Height & Weight Height 5 ft 7 in 11/06/24 09:29 Weight: 72 kg 11/06/24 09:29 Body Mass Index (BMI) 24.8 11/06/24 05:23 Respiratory Assessment Respiratory Assessment - lead producer: Respiratory Tract Infection Hx - lead producer Hx Respiratory Tract Infection Yes: Patient is recovering 06/22/24 12:11 from a cold/sinus congestion STOP Sleep Apnea STOP Sleep Apnea - lead producer: STOP Sleep Apnea - lead producer Hx Hypertension Yes 11/06/24 13:19 Hx Sleep [...] Tobacco Use History Tobacco Use History - lead producer: Tobacco Use History - lead producer Tobacco Use Cigarettes 01/25/23 14:01 Smoking Status Former smoker 11/06/24 13:51 Hx Tobacco Use Yes: Cigar 11/06/24 03:38 Years Smoking Packs Smoked per Day Smoking Cessation Date was Yes - quit smoking within 15 11/06/24 03:38 within the last 15 years years Hx Smoking Cessation Date 04/01/23 11/06/24 03:38 Hx Smoking Cessation Yes 11/06/24 03:38 Counseling Hematologic Medial History Hematologic Hx - lead producer: Hematologic Medical Hx - global regulatory lead Hx of Blood Transfusion Yes 11/06/24 03:38 [...] confused, unrespo /Reproduction History /Reproductive History - lead producer: /Reproductive Hx- lead producer Hx Now Gestational Age (in weeks): EDC: [...] MD Cosigner Signature: Date CC: ~ Signed [facility] Work Phone: [phone]) 266-394004-08-2025 Consult note Author Ari Friend [facility] Note Date/Time November 06, 2024 6:59 pm [facility] Medical Records Department [address] [facility] [place] [address] Consultation - GI 11/06/24 1854 MR#: [id number] Acct: [id number] Name: SEGUNDOJARED L Rep #:[id number] : 1945 79 From: Ari Silvestre DO PCP: MARYAM Guerra Status:ADM IN Location: [place] [address] HPI Consult Data Date of Consult: 11/06/24 [...] presents for evaluation. He originally presented to [facility] ED on 04/11/2024 with c/o hematochezia [...] MSI stable. Pathologic staging pT4 pN2b. [facility] Medical History Encounter for [...] mg PO DAILY 30 days #60 tabs 11/10/24 04/07/25 Rx iron) tablet (Iron (ferrous sulfate)) metoprolol [...] % (Auto) Cancelled, Lymph % (Auto) Cancelled, Carson % (Auto) Cancelled, Eos % (Auto) Cancelled, [...] Drop Cells Cancelled, Ovalocytes Cancelled, Stomatocytes Cancelled, [place] Bodies Cancelled, [place] Cells Cancelled, Bite Cells Cancelled, Crenated Cell [...] 76.8 H, Lymph % (Auto) 12.9 L, Carson % (Auto) 8.9, Eos % (Auto) 0.6, [...] 74.5 H, Lymph % (Auto) 13.7 L, Carson % (Auto) 9.8, Eos % (Auto) 1.4, [...] 78.1 H, Lymph % (Auto) 9.1 L, Carson % (Auto) 11.9 H, Eos % (Auto) [...] stable findings as described above. [facility] Assessment & Plan Assessment/Plan (1) GI [...] flexible sigmoidoscopy. Charges/Coding Visit Charges Inpatient E&M: 25759 Init Hosp L3 11/06/24 1859 <Electronically signed by Ari Silvestre DO> Cosigner Signature (if applicable): CC: MARYAM Olson~ Signed [facility] Work Phone: 1(533) 261-110704-08-2025 Consult note [facility] Medical Records Department [address] [place] [address] Anesthesia Postop Eval II 11/06/242038 MR#: [id number] Acct: [id number] Name: JARED RAYMOND Rep #:[id number] : 1945 79 From: Keo Burgos MD PCP: MARYAM Guerra Status:ADM IN Y Race: C Location: [place] [address] 3-1 Anesthesia Postop Eval I Sum Postop [...] MD Cosigner Signature: Date CC: ~ Signed [facility]04-08-2025 Consult note [facility] Medical Records Department [address] [place] [address] Anesthesia Postop Eval I 11/06/241948 MR#: [id number] Acct: [id number] Name: JARED RAYMOND Rep #:[id number] : 1945 79 From: Keo Burgos MD PCP: MARYAM Guerra Status:ADM IN Y Race: C Location: [place] [address] Anesthesia: Postop Eval I Current Vital Signs [...] Keo Vela Signature: Date CC: ~ Signed [facility]04-08-2025 Procedure note [facility] Medical Records Department [address] [place] [address] Colonoscopy Report MR#: [id number] Acct: [id number] Name: JARED RAYMOND Rep #:[id number] : 1945 79 From: Ari Silvestre DO [...] digital rectal examinations were normal. Hematin (altered blood/bcxybb-iejjge-iflq material) was found in the entire colon. There was evidence of a prior end-to-side ileo-colonic anastomosis in the ascending colon. This was patent and was characterized by ulceration and an intact staple line. The anastomosis was traversed. To stop active bleeding, one hemostatic clip was successfully placed. Clip rooming house inspector: [employer]. There was no bleeding at the end [...] was poor. Procedure Code(s): --- Professional --- 89789, Colonoscopy, flexible; with control of bleeding, any method CPT copyright 2021 [employer]. All rights reserved. The codes documented in this report are preliminary and upon wad printing machine operator review may be revised to meet current compliance requirements. Ari Silvestre DO 11/06/2024 7:48:14 PM This report has been signed electronically. Number of Addenda: 0 Note Initiated On: 11/06/2024 6:51 PM 11/06/241947 Date _ Ari Phelpsignbrant Signature: Date (if indicated) CC: SENIOR WATER RESOURCES ENGINEER-C Mariela Olson; Ari DO Nirmala ~ Date Dictated: 11/06/241850 Date Transcribed: [employer]: RF Signed [facility]04-08-2025 Consult note [facility] Medical Records Department [address] [place] [address] Pre-Anesthesia Evaluation 11/06/241858 MR#: [id number] Acct: [id number] Name: JARED RAYMOND Rep #:[id number] : 1945 79 From: Keo Burgos MD PCP: MARYAM Guerra Status:ADM IN Y Race: C Location: [place] [address] 31 ASA Classification* ASA Classification ASA Classification: 3 [...] Flexible sigmoidoscopy Anesthesia History Anesthesia History - lead producer: Anesthesia History - lead producer Hx Hospitalization Yes: 06/09/24 BIOPSY OF LIVER [...] sips of water?: Yes PONV PONV - lead producer: PONV - lead producer Female HX of Motion Sickness HX of N/V After Surgery Non-Smoker Duration of Surgery greater than 60 minutes Number of Risk Factors PONV Score Height & Weight Height & Weight: Anesthesia: Height & Weight Height 5 ft 7 in 11/06/24 09:29 Weight: 72 kg 11/06/24 09:29 Body Mass Index (BMI) 24.8 11/06/24 05:23 Respiratory Assessment Respiratory Assessment - lead producer: Respiratory Tract Infection Hx - lead producer Hx Respiratory Tract Infection Yes: Patient is recovering 06/22/24 12:11 from a cold/sinus congestion STOP Sleep Apnea STOP Sleep Apnea - lead producer: STOP Sleep Apnea - lead producer Hx Hypertension Yes 11/06/24 13:19 Hx Sleep [...] Tobacco Use History Tobacco Use History - lead producer: Tobacco Use History - lead producer Tobacco Use Cigarettes 01/25/23 14:01 Smoking Status Former smoker 11/06/24 13:51 Hx Tobacco Use Yes: Cigar 11/06/24 03:38 Years Smoking Packs Smoked per Day Smoking Cessation Date was Yes - quit smoking within 15 11/06/24 03:38 within the last 15 years years Hx Smoking Cessation Date 04/01/23 11/06/24 03:38 Hx Smoking Cessation Yes 11/06/24 03:38 Counseling Hematologic Medial History Hematologic Hx - lead producer: Hematologic Medical Hx - global regulatory lead Hx of Blood Transfusion Yes 11/06/24 03:38 [...] confused, unrespo /Reproduction History /Reproductive History - lead producer: /Reproductive Hx- lead producer Hx Now Gestational Age (in weeks): EDC: [...] MD Cosigner Signature: Date CC: ~ Signed [facility]04-08-2025 Consult note [facility] Medical Records Department [address] [place] [address] Consultation - GI 11/06/24 1854 MR#: [id number] Acct: [id number] Name: JARED RAYMOND Rep #:[id number] : 1945 79 From: Ari Silvestre DO PCP: MARYAM Guerra Status:ADM IN Location: [place] [address] HPI Consult Data Date of Consult: 11/06/24 [...] presents for evaluation. He originally presented to [facility] ED on 04/11/2024 with c/o hematochezia [...] MSI stable. Pathologic staging pT4 pN2b. [facility] Medical History Encounter for [...] % (Auto) Cancelled, Lymph % (Auto) Cancelled, Carson % (Auto) Cancelled, Eos % (Auto) Cancelled, [...] Drop Cells Cancelled, Ovalocytes Cancelled, Stomatocytes Cancelled, [place] Bodies Cancelled, [place] Cells Cancelled, Bite Cells Cancelled, Crenated Cell [...] 76.8 H, Lymph % (Auto) 12.9 L, Carson % (Auto) 8.9, Eos % (Auto) 0.6, [...] 74.5 H, Lymph % (Auto) 13.7 L, Carson % (Auto) 9.8, Eos % (Auto) 1.4, [...] 78.1 H, Lymph % (Auto) 9.1 L, Carson % (Auto) 11.9 H, Eos % (Auto) [...] stable findings as described above. Reading [facility] Assessment & Plan Assessment/Plan (1) GI [...] s igmoidoscopy. Charges/Coding Visit Charges Inpatient E&M: 63476 Init Hosp L3 11/06/24 4461 Cosigner Signature (if applicable): CC: MARYAM Olson~ Signed [facility]04-08-2025 Progress note Author Stevie Harrington [facility] Note Date/Time November 06, 2024 2:48 pm [facility] Medical Records Department [address] [place] [address] Progress Note - Hospitalist 11/06/24726 MR#: [id number] Acct: [id number] Name: JARED RAYMOND Rep #:[id number] : 1945 79 From: Stevie Harrington DO PCP: MARYAM Guerra Status:ADM IN Location: [place] [address]- Reason for Visit Reason for Visit: Diagnoses [...] % (Auto) Cancelled, Lymph % (Auto) Cancelled, [place] % (Auto) Cancelled, Eos % (Auto) Cancelled, [...] Drop Cells Cancelled, Ovalocytes Cancelled, Stomatocytes Cancelled, [place] Bodies Cancelled, [place] Cells Cancelled, Bite Cells Cancelled, Crenated Cell [...] 76.8 H, Lymph % (Auto) 12.9 L, Carson % (Auto) 8.9, Eos % (Auto) 0.6, [...] 74.5 H, Lymph % (Auto) 13.7 L, [place] % (Auto) 9.8, Eos % (Auto) 1.4, [...] stable findings as described above. Reading [facility] [facility] Ex[facility] Const alert and no [...] at bedside. Charges/Coding Visit Charges Inpatient E&M: 61963 Subs Hosp L2 11/06/24 7448 <Electronically signed by Stevie Harrington DO> Cosigner Signature (if applicable): CC: ~ Signed [facility] Work Phone: 1(131) 621-173804-08-2025 Progress note [facility] Medical Records Department [address] [place] [address] Progress Note - Hospitalist 11/06/24726 MR#: [id number] Acct: [id number] Name: JARED RAYMOND Rep #:[id number] : 1945 79 From: Stevie Harrington DO PCP: ABDIAS GuerraC Status:ADM IN Location: [place] [address] Reason for Visit Reason for Visit: Diagnoses [...] % (Auto) Cancelled, Lymph % (Auto) Cancelled, Carson % (Auto) Cancelled, Eos % (Auto) Cancelled, [...] Drop Cells Cancelled, Ovalocytes Cancelled, Stomatocytes Cancelled, [place] Bodies Cancelled, [place] Cells Cancelled, Bite Cells Cancelled, Crenated Cell [...] 76.8 H, Lymph % (Auto) 12.9 L, Carson % (Auto) 8.9, Eos % (Auto) 0.6, [...] 74.5 H, Lymph % (Auto) 13.7 L, Carson % (Auto) 9.8, Eos % (Auto) 1.4, [...] stable findings as described above. Reading Location: [facility] Physical Exam Const alert and no apparent [...] at bedside. Charges/Coding Visit Charges Inpatient E&M: 72552 Subs Hosp L2 11/06/24 6687 Cosigner Signature (if applicable): CC: ~ Signed [facility]04-08-2025 History and physical note Author Darrel Sanders [facility] Note Date/Time November 06, 2024 6:56 am [facility] Medical Records Department [address] [facility] [place] [address] H&P Exam - Hospitalist 11/06/24 0145 MR#: [id number] Acct: [id number] Name: JARED RAYMOND Rep #:[id number] : 1945 79 From: Darrel Qureshi DO PCP: MARYAM Guerra Status:ADM IN Location: [address] 1 HPI - General General Date of [...] of syncopal episodes who now returns to [facility] ER complaining of watery diarrhea [...] expected to extend beyond 2 midnights. [facility] Medical History (Updated 11/06/24 [...] % (Auto) Cancelled, Lymph % (Auto) Cancelled, Carson % (Auto) Cancelled, Eos % (Auto) Cancelled, [...] Drop Cells Cancelled, Ovalocytes Cancelled, Stomatocytes Cancelled, [place] Bodies Cancelled, [place] Cells Cancelled, Bite Cells Cancelled, Crenated Cell [...] 76.8 H, Lymph % (Auto) 12.9 L, Carson % (Auto) 8.9, Eos % (Auto) 0.6, [...] 75 minutes. Charges/Coding Visit Charges Inpatient E&M: 71602 Init Hosp L3 11/06/24 0656 <Electronically signed by Darrel Carpenter DO> Cosigner Signature (if applicable): CC: MARYAM Olson; Dr. Darrel Carpenter DO~ Signed [facility] Work Phone: 1(860) 873-187604-08-2025 Discharge summary Author [facility] Note Date/Time November 06, 2024 5:46 am [facility] Medical Records Department [address] [place] [address] Emergency Department Summary 11/06/24 MR#: [id number] Acct: [id number] Name: JARED RAYMOND Rep #:[id number] : 1945 79 From: Harrison Linares DO PCP: MARYAM Guerra Status:ADM IN Location: [address] History of Present Illness Chief Complaint: [...] blood per rectum he presents for evaluation. [facility] Medical History (Updated 11/06/24 @ 05:46 [...] I did discuss the case with his hand deicer element winder Dr. Silvestre. He recommends that with his [...] H Lymph % (Auto) Cancelled 12.9 L Carson % (Auto) Cancelled 8.9 Eos % (Auto) [...] Drop Cells Cancelled Ovalocytes Cancelled Stomatocytes Cancelled Scott-[place] Bodies Cancelled Tani Cells Cancelled Bite Cells [...] stable findings as described above. Reading Location: [facility] Management Discussion w/another healthcare provider: Hospitalist and Dramatic Reader Discharge Plan Dx/Rx/DC Orders Clinical Impression: GI (gastrointestinal bleed), Benign essential hypertension, Colon cancer, Hyponatremia, Diverticulosis Disposition Disposition: [facility] Discharge Date/Time: 11/06/24 03:21 What to do if you have Problems For any increased pain, shortness of breath, bleeding, nausea or vomiting, chestpain, or any unexpected problems, contact your Primary Care Provider. Call [facility] ([phone]) or report to the closest Emergency Room. Call 911 if necessary. 11/06/24 0546 <Electronically signed by Harrison Linares DO> Cosigner Signature (if applicable): CC: MARYAM Olson ~ Signed [facility] Work Phone: 1(251) 882-208404-08-2025 History and physical note [facility] Medical Records Department [address] [place] [address] H&P Exam - Hospitalist 11/06/24 0145 MR#: [id number] Acct: [id number] Name: JARED RAYMOND Rep #:[id number] : 1945 79 From: Darrel Qureshi DO PCP: MARYAM Guerra Status:ADM IN Location: [facility] [id number]- 1 HPI - General General Date of [...] of syncopal episodes who now returns to [facility] ER complaining of watery diarrhea [...] expected to extend beyond 2 midnights. [facility] Medical History (Updated 11/06/24 [...] % (Auto) Cancelled, Lymph % (Auto) Cancelled, Carson % (Auto) Cancelled, Eos % (Auto) Cancelled, [...] Drop Cells Cancelled, Ovalocytes Cancelled, Stomatocytes Cancelled, [place] Bodies Cancelled, Tani Cells Cancelled, Bite Cells [...] RDW Std Deviation 39.0, RDW Coeff of Edepika 12.2, Plt Count 274, MPV 8.7, Immature Gran % (Auto) 0.600, Neut % (Auto) 76.8 H, Lymph % (Auto) 12.9 L, Carson % (Auto) 8.9, Eos % (Auto) 0.6, [...] 75 minutes. Charges/Coding Visit Charges Inpatient E&M: 03156 Init Hosp 11/06/24 0656 Cosigner Signature (if applicable): CC: SENIOR WATER RESOURCES ENGINEERCatherine Olson; Dr. Darrel Carpenter DO~ Signed [facility]04-08-2025 Discharge summary [facility] Medical Records Department [address] [place] [address] Emergency Department Summary 11/06/24 MR#: [id number] Acct: [id number] Name: JARED RAYMOND Rep #:[id number] : 1945 79 From: Harrison Linares DO PCP: MARYAM Guerra Status:ADM IN Location: [place] [address] 1 HPI History of Present Illness Chief [...] blood per rectum he presents for evaluation. [facility] Medical History (Updated 11/06/24 @ 05:46 [...] I did discuss the case with his hand deicer element winder Dr. Friend. He recommends that with his recurrentsymptoms and [...] H Lymph % (Auto) Cancelled 12.9 L Carson % (Auto) Cancelled 8.9 Eos % (Auto) [...] Drop Cells Cancelled Ovalocytes Cancelled Stomatocytes Cancelled [place] Bodies Cancelled Tani Cells Cancelled Bite Cells [...] Management Discussion w/another healthcare provider: Hospitalist and Dramatic Reader Discharge Plan Dx/Rx/DC Orders Clinical Impression: GI (gastrointestinal bleed), Benign essential hypertension, Colon cancer, Hyponatremia, Diverticulosis Disposition Disposition: [facility] Discharge Date/Time: 11/06/24 03:21 What to do if you have Problems For any increased pain, shortness of breath, bleeding, nausea or vomiting, chestpain, or any unexpected problems, contact your Primary Care Provider. Call [facility] ([phone]) or report tothe closest Emergency Room. Call 911 if necessary. 11/06/24 2582 Cosigner Signature (if applicable): CC: MARYAM Olson ~ Signed [facility]04-07-2025 Radiology Diagnostic study note [facility] Imaging Services [address] [place] [address] CTA Abd/Pelvis W/WO Contrast MR#: [id number] Acct: [id number] Name: JARED RAYMOND Rep #: [id number] : 1945 M 79 From: Shakira Ramsey MD PCP: MARYAM Guerra Status: REG ER Study:CTA Abd/Pelvis W/WO Contrast Date of Ex am: 11/05/24 Exam# [id number] Ordering Dr: Erica Linares DO PROCEDURE: CTA [...] mesentery with limited distal opacification. Adrenal glands: Ejdl-rrryyym-zwts-right adrenal thickening. Kidneys/Ureters: Symmetric bilateral renal enhancement. [...] stable findings as described above. [facility] CC: MARYAM Olson; Harrison Linares DO ~ Superintendent Automotive: Signed [facility]04-04-2025 Telephone encounter Note* Telephone Encounter - Filomena Rodrigues - 11/02/2024 2:30 PM EDT Patient and his daughter stopped in to talk to Jolynn Frias. 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 Please call patients daughter Teresa [phone] [facility]04-04-2025 Miscellaneous Notes* Telephone Encounter - Filomena Rodrigues - 11/02/2024 2:30 PM EDT Patient and his daughter stopped in to talk to Jolynn Frias. 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 Please call patients daughter Teresa [phone] [facility] Discharge summary [facility] Medical Records Department [address] [place] [address] Emergency Department Summary 10/24/24 MR#: [id number] Acct: [id number] Name: JARED RAYMOND Rep #:[id number] : 1945 79 From: Jerry Yuen PCP: [...] Oxygen Delivery Method Room Air Room Air [facility] MDM MDM Narrative Medical decision making narrative: HISTORY [...] History obtained from others: none Consults: none [facility] Narrative: The patient was initially hemodynamically [...] Discharge home This note was generated with [employer] dictation software. It may contain incorrectwords, spelling, [...] 77.1 H Lymph % (Auto) 12.7 L Carson % (Auto) 8.4 Eos % (Auto) 1.0 [...] Clarity Clear Urine pH 8.0 Ur Specific [place] 1.010 Urine Protein 15 H Urine Glucose [...] SONOGRAPHIC EVIDENCE OF TESTICULAR TORSION. Reading Location: [facility] Discharge Plan Triage Chief Complaint: Flank Pain [...] MARYAM [Primary Care Provider] - Print Language: Albanian What to do if you have Problems For any increased pain, shortness of breath, bleeding, nausea or vomiting, chestpain, or any unexpected problems, contact your Primary Care Provider. Call [facility] ([phone]) or report tothe closest Emergency Room. Call 911 if necessary. 10/24/242033 Cosigner Signature (if applicable): CC: MARYAM Olson ~ Signed [facility]03-26-2025 Radiology Diagnostic study note [facility] Imaging Services [address] [place] [address] Testicular with Arterial Flow MR#: [id number] Acct: [id number] Name: JARED RAYMOND Rep #: [id number] : 1945 M 79 From: Vanessa Rosado MD PCP: MARYAM Guerra Status: REG ER Study:Testicular with Arterial Flow Date of E xam: 10/24/24 Exam# [id number] Ordering Dr: Robby Hightower DO PROCEDURE: TESTICULAR [...] SONOGRAPHIC EVIDENCE OF TESTICULAR TORSION. Reading Location: [id number] CC: MARYAM Olson; Dr. Jerry Hightower, ~ Superintendent Automotive: Signed [facility]03-26-2025 Radiology Diagnostic study note [facility] Imaging Services [address] [place], [place] [address] Abdomen/Pelvis W IV Cont ONLY MR#: [id number] Acct: [id number] Name: JARED RAYMOND Rep #: [id number] : 1945 M 79 From: Vanessa Rosado MD PCP: MARYAM Guerra Status: REG CLI Study:Abdomen/Pelvis W IV Cont ONLY Date of E xam: 10/24/24 Exam# [id number] Ordering Dr: Thang Hernandez MD PROCEDURE: ABDOMEN/PELVIS [...] excluded. Attentionon follow-up imaging recommended. Reading Location: [facility] CC: MARYAM Olson; Dr. Papi Hernandez MD ~ Superintendent Automotive: Signed [facility]03-26-2025 Discharge summary Author Jerry Hightower [facility] Note Date/Time October 24, 2024 8:3 4pm [facility] Medical Records Department [address] [place] [address] Emergency Department Summary 10/24/24 MR#: [id number] Acct: [id number] Name: JARED RAYMOND Rep #:[id number] : 1945 79 From: Jerry Yuen PCP: Mariela Olson SENIOR WATER RESOURCES ENGINEER-C Status:REG ER Location: ED HPI History of Present Illness Chief Complaint: Flank Pain PFSH [facility] Medical History (Updated 10/24/24 @ 19:59 by [...] Oxygen Delivery Method Room Air Room Air [facility] Narrative Medical decision making narrative: HISTORY OF [...] reviewed, Vital signs reviewed Constitutional: please see [facility] HENT: MMM Eyes: Pupils equal round and [...] History obtained from others: none Consults: none [facility] Narrative: The patient was initially hemodynamically [...] Discharge home This note was generated with [employer]ation software. It may contain incorrectwords, spelling, and punctuation that were not noted in review of the chart prior to signing. Lab Data Labs: Laboratory Results - last 24 hr 03/26/25 03/26/25 18:20 18:30 WBC 8.7 RBC 4.25 L Hgb 13.1 Hct 37.0 L MCV 87.1 MCH 30.8 MCHC 35.4 RDW Std Deviation 39.6 RDW Coeff of Deepika 12.4 Plt Count 307 MPV 9.0 Immature Gran % (Auto) 0.500 Neut % (Auto) 77.1 H Lymph % (Auto) 12.7 L Carson % (Auto) 8.4 Eos % (Auto) 1.0 [...] Clarity Clear Urine pH 8.0 Ur Specific [place] 1.010 Urine Protein 15 H Urine Glucose [...] SONOGRAPHIC EVIDENCE OF TESTICULAR TORSION. Reading Location: [facility] Discharge Plan Triage Chief Complaint: Flank Pain [...] Care Provider: Mariela Olson Referrals: Mariela Olson, SENIOR WATER RESOURCES ENGINEER-C [Primary Care Provider] - Print Language: Albanian What to do if you have Problems For any increased pain, shortness of breath, bleeding, nausea or vomiting, chestpain, or any unexpected problems, contact your Primary Care Provider. Call [facility] ([phone]) or report to the closest Emergency Room. Call 911 if necessary. 10/24/242033 <Electronically signed by Jerry Hightower DO> Cosigner Signature (if applicable): CC: SENIOR WATER RESOURCES ENGINEERCatherine Olson ~ Signed [facility] Work Phone: 1(922) 251-881403-19-2025 Evaluation note* Diagnosis Onset Date Resolution Status [...] metastasis present chronic December 04, 2024 11:24am [facility] Work Phone: 1(587) 266-476203-19-2025 Evaluation note* Diagnosis Onset Date Resolution Status [...] node metastasis present chronic January 09 3:16pm [facility] Work Phone: 1([phone]) 763-236302-07-2025 History of Present illness Narrative* Encounter Date [...] seldom monitors, usually can tell by his [employer] puzzles. (+) eye vitamin PO Vision seems [...] Referred by Julissa Yap O.D. at [facility]. Wears OTC readers. Straight lines appear wavy in OS. [facility] Work Phone: 1(121) 569-963001-08-2025 Evaluation note* Diagnosis Onset Date Resolution Status [...] 2:56am GI bleed acute November 18 12:59pm [facility] Work Phone: 1(739) 264-167101-08-2025 Evaluation note* Diagnosis Onset Date Resolution Status [...] 2024 12:59pm Rectal bleeding acute October 12:59pm [facility] Work Phone: 1(235) 184-227901-08-2025 Evaluation note* Diagnosis Onset Date Resolution Status [...] metastasis present chronic December 04, 2024 11:24am [facility] Work Phone: 1([phone]) 960-592312-18-2024 Evaluation note* Diagnosis Onset Date Resolution Status [...] 06 2:56am Colon cancer acute November 06, 2 025 2:56am GI (gastrointestinal bleed) acute November 06, 2024 2:56am Mediastinal lymphadenopathy acute November 06, 2024 2:56am RLQ abdominal pain acute November 06, 2024 2:56am Benign essential hypertension chronic November 06, 2024 2:56am 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 November 06, 2024 2:56am [facility] Work Phone: 1(875) 175-975312-18-2024 Evaluation note* Diagnosis Onset Date Resolution Status Admit Date Encounter for education acute D ember 2023 8:52am 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-abdominal [...] lymph node chronic November 06, 2024 2:56am [facility] Work Phone: 1([phone]) 206-792212-13-2024 Instructions* Date Instruction Additional Infor mation 7-8 [...] hemorrhage, left eye [facility] Work Phone: 1([phone]) 193-762512-04-2024 Evaluation note* Diagnosis Onset Date Resolution Status Admit Date 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 July 04 2:12pm Encounter for education acute D ec2023 8:52am 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 July 18, 024 8:52am 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 August 08 9:51am RLQ abdominal pain acute October 17, 2024 2:04pm Aortic stenosis chronic September 2:04pm Benign essential hypertension chronic October 17, 2024 2:04pm 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, 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 October 17, 2024 2:04pm [facility] Work Phone: 1(453) 498-635011-22-2024 [facility]11-18-2024 [facility]11-10-2024 [facility] 05-01-2024 [facility]09-27-2024 [facility]09-15-2024 [facility]07-25-2022 Miscellaneous Notes * Telephone Encounter - Michela Saucedo - 02/22/2022 3:14 PM EDT Patient arrived at the [facility] in [place], [place] requesting an appointment to become established with a new PCP in this region. The patient reports having similar symptoms in the right upper extremity that he experienced prior to his quintuple bypass surgery. He was provided the phone number and name of the cardiac surgeon and was scheduled to see Dr. Chapman 05/28/22. Please advise patient if he should follow up with christian counselor prior to PCP visit. [facility]12[facility] History of Past illness Narrative* Problem Noted Date Resolved Date On mechanically assisted ventilation 07/19/2019 07/20/2019 Overview: Grade I airway A/P- WTE Stress hyperglycemia 07/19/2019 07/21/2019 Overview: H: Post op A/P-No h/o DM. [place]-operative insulin resistance and exacerbation of hyperglycemia. RHI drip per ICU protocol, transition to SSI documented as of this encounter (statuses as of 02/22/2022) [facility]* Clinical Note Date No Information [facility] Work Phone: Consult note Author Kush Daniel [facility] Note Date/Time November 20, 2024 1:4 3pm [facility] Medical Records Department [address] [place] [address] Counseling Note - Pharmacy 11/20/24 1342 MR#: [id number] Acct: [id number] Name: JARED RAYMOND Kaitlin Rep #:[id number] : 1945 79 From: Kush Daniel PCP: MARYAM Guerra Status:ADM IN Y Location: [place] [address] [place] [facility] Pharmacy Service has performed discharge [...] Signature (if applicable): Date CC: ~ Signed [facility] Work Phone: Discharge summary* Clinical Note Date No Information [facility] Work Phone: Discharge summary Author Stevie Harrington [facility] Note Date/Time November 07, 2024 5:07 pm [facility] Medical Records Department [address] [place] [address] Discharge Summary 11/07/24 1655 MR#: [id number] Acct: [id number] Name: JARED RAYMOND Kaitlin Rep #:[id number] : 1945 79 From: Stevie Harrington DO PCP: MARYAM Guerra Status:ADM IN Location: [place] [address] Providers Date of Admission: 11/06/24 Primary Care Physician: MARYAM Guerra Consultations 11/06/24 03:28 Consult: Gastroenterology Routine Consulting Provider: [facility] Reason for Consult: LGIB with BRBPR; [...] 70.4 H, Lymph % (Auto) 14.8 L, Carson % (Auto) 12.5 H, Eos % (Auto) [...] 28 0RF Referrals / Follow Up: Mariela Olson, SENIOR WATER RESOURCES ENGINEER-C [Primary Care Provider] - Within 2 Weeks Disposition Disposition (needs filled in before D/C Order can be placed): Home, Self Care Charges/Coding Visit Charges Inpatient E&M: 59336 Disch Hosp >30min 11/07/24 1707 <Electronically signed by Stevie Harrington DO> Cosigner Signature (if applicable): CC: MARYAM Olson; Dr. Stevie Harrington DO~ Signed [facility] Work Phone: Evaluation noteNo assessment information available [facility] Work Phone: Evaluation note* Diagnosis Onset Date Resolution Status Acute alteration in mental status acute Elevated troponin acute Chronic hypertension chronic [facility] Work Phone: Evaluation note* Diagnosis Onset Date Resolution Status Elevated troponin acute Chronic hypertension chronic Hypertensive emergency witho ut congestive heart failure resolved [facility] Work Phone: Evaluation note* Type [...] begin a bowel regimen which will include gtcl-ycn-zkwicnv medicine such as senna, Colace and MiraLAX. Please return to the emergency department if your symptoms change or worsen. 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 Expl anation Advance Directive(s) 07/18/2019 4:40 PM Advance Directive(s) 07/12/2019 2:31 PM Advance Directive(s) 05/14/2019 8:30 AM Advance Directive Response Recorded Date/ Time Advance Directives No October 31 11:26am Living Will Yes March 06, 2018 2:30pm Power of Stock Digger No March 06 2:30pm Advance Directive Response Recorded Date/ Time Advance Directives No October 31 10:26am Living Will Yes August 15 6:13pm Power of Stock Digger Yes August 15, 2023 6:13pm Name of Medical Power of Stock Digger [place] Raymond August 15, 2023 6:13pm Advance Directive Response Recorded Date/ Time Name of Medical Power of Stock Digger SPRING RAYMOND August 15, 2023 11:26pm Advance Directives No October 31 11:26am Living Will No December 11, 2023 2 :44am Power of Stock Digger No December 11, 2023 2:44am Directive Yes / No Effective Date File Name No Information Advance Directive Response Recorded Date/ Time Living Will Yes April 12, 2024 2:59am Do you have a Healthcare Power of Stock Digger? Yes April 12, 2024 2:59am Living Will Yes April 27, 2024 2:58pm Do you have a Healthcare Power of Stock Digger? Yes April 27, 2024 2:58pm Living Will Yes October 24, 2024 6:01pm Do you have a Healthcare Power of Stock Digger? Yes October 24, 2024 6:01pm Name of Medical Power of Stock Digger October 24, 2024 6:01pm Advance Directives No October 31 11:26am Advance Directive Response Recorded Date/ Time Living Will Yes April 12, 2024 2:59am Do you have a Healthcare Power of Stock Digger? Yes April 12, 2024 2:59am Living Will Yes April 27, 2024 2:58pm Do you have a Healthcare Power of Stock Digger? Yes April 27, 2024 2:58pm Living Will Yes October 24, 2024 6:01pm Do you have a Healthcare Power of Stock Digger? Yes October 24, 2024 6:01pm Name of Medical Power of Stock Digger October 24, 2024 6:01pm Living Will No November 05, 2024 10:42pm Do you have a Healthcare Power of Stock Digger? No November 05, 2024 10:42pm Advance Directives No October 31 11:26am Advance Directive Response Recorded Date/ Time Living Will Yes April 12, 2024 2:59am Do you have a Healthcare Power of Stock Digger? Yes April 12, 2024 2:59am Living Will Yes April 27, 2024 2:58pm Do you have a Healthcare Power of Stock Digger? Yes April 27, 2024 2:58pm Living Will Yes October 24, 2024 6:01pm Do you have a Healthcare Power of Stock Digger? Yes October 24, 2024 6:01pm Name of Medical Power of Stock Digger October 24, 2024 6:01pm Living Will No November 06, 2024 3:38am Do you have a Healthcare Power of Stock Digger? No November 06, 2024 3:38am Advance Directives No October 31 11:26am Advance Directive Response Recorded Date/ Time Living Will Yes April 12, 2024 2:59am Do you have a Healthcare Power of Stock Digger? Yes April 12, 2024 2:59am Living Will Yes April 27, 2024 2:58pm Do you have a Healthcare Power of Stock Digger? Yes April 27, 2024 2:58pm Living Will No November 18, 2024 10:49am Do you have a Healthcare Power of Stock Digger? No November 18, 2024 10:49am Living Will Yes October 24, 2024 6:01pm Do you have a Healthcare Power of Stock Digger? Yes October 24, 2024 6:01pm Name of Medical Power of Stock Digger October 24, 2024 6:01pm Living Will No November 06, 2024 3:38am Do you have a Healthcare Power of Stock Digger? No November 06, 2024 3:38am Advance Directives No October 31 11:26am Advance Directive Response Recorded Date/ Time Living Will Yes April 12, 2024 2:59am Do you have a Healthcare Power of Stock Digger? Yes April 12, 2024 2:59am Living Will Yes April 27, 2024 2:58pm Do you have a Healthcare Power of Stock Digger? Yes April 27, 2024 2:58pm Living Will No November 18, 2024 3:46pm Do you have a Healthcare Power of Stock Digger? No November 18, 2024 3:46pm Living Will Yes October 24, 2024 6:01pm Do you have a Healthcare Power of Stock Digger? Yes October 24, 2024 6:01pm Name of Medical Power of Stock Digger October 24, 2024 6:01pm Living Will No November 06, 2024 3:38am Do you have a Healthcare Power of Stock Digger? No November 06, 2024 3:38am Advance Directives No October 31 11:26am Advance Directive Response Recorded Date/ Time Living Will Yes April 12, 2024 2:59am Do you have a Healthcare Power of Stock Digger? Yes April 12, 2024 2:59am Living Will Yes April 27, 2024 2:58pm Do you have a Healthcare Power of Stock Digger? Yes April 27, 2024 2:58pm Living Will No November 18, 2024 3:46pm Do you have a Healthcare Power of Stock Digger? No November 18, 2024 3:46pm Living Will Yes October 24, 2024 6:01pm Do you have a Healthcare Power of Stock Digger? Yes October 24, 2024 6:01pm Name of Medical Power of Stock Digger October 24, 2024 6:01pm Living Will No November 06, 2024 3:38am Do you have a Healthcare Power of Stock Digger? No November 06, 2024 3:38am Living Will No January 14, 2025 9:01am Do you have a Healthcare Power of Stock Digger? No January 14, 2025 9:01am Advance Directives No January 14 9:01am Advance Directive Response Recorded Date/ Time Living Will Yes April 12, 2024 2:59am Do you have a Healthcare Power of Stock Digger? Yes April 12, 2024 2:59am Living Will Yes April 27, 2024 2:58pm Do you have a Healthcare Power of Stock Digger? Yes April 27, 2024 2:58pm Living Will No November 18, 2024 3:46pm Do you have a Healthcare Power of Stock Digger? No November 18, 2024 3:46pm Do you have a Healthcare Power of Stock Digger? No February 11, 2025 12:52am Living Will Yes October 24, 2024 6:01pm Do you have a Healthcare Power of Stock Digger? Yes October 24, 2024 6:01pm Name of Medical Power of Stock Digger October 24, 2024 6:01pm Living Will No November 06, 2024 3:38am Do you have a Healthcare Power of Stock Digger? No November 06, 2024 3:38am Living Will No January 14, 2025 9:01am Do you have a Healthcare Power of Stock Digger? No January 14, 2025 9:01am Advance Directives No January 14 9:01am Family History Relationship Condition Age at Onset Recorded Date/T [...] 06, 2024 2:56 am Mediastinal lymphadenopathy November 06, 2 025 2:56am Medical non-compliance November 06, [...] November 20, 2024 1:2 2pm [facility] Olivares October 10:59am RE-EVALUATE November [...] November 20, 2024 1:2 2pm F/U FROM [facility] TO DR Olivares October 10:59am RE-EVALUATE November [...] pm Regional lymph node metastasis present [facility] 2024 3:16pm Chief Complaint Admit Date 6 M FU [...] BRBPR; RECURRENT November 07 7:27am GI BLEED Maribel 20th, 2025 12: 59pm GI BLEED November 18, 2024 [...] 2025 3:16 pm Nonrheumatic aortic (valve) stenosis Dec 8:27am 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 S February 11, 2025 2:24am Summary Purpose Additional Source Comments Source Comments (unrecognize d section and content) In the event this informatio n is protected by the Federal Confidentiality of Alcohol and Drug Abuse Patient Records regulations: The Federal rules restrict any use of the information to criminally investigate or prosecute any alcohol or drug abuse patient.[facility] event this information is protected by the Federal Confidentiality of Alcohol and Drug Abuse Patient Records regulations: The Federal rules restrict any use of the information to criminally investigate or prosecute any alcohol or drug abuse patient.[facility] Reason for Visit (unrecogniz ed section and content) Reason Comments Patient Question Care Teams (unrecognized sec tion and content) Dairy Equipment Specialist Relationship Specialty Start Date End Date Neville Islas DO [address] [address] PCP - General Family Practice 05/07/19 Team Status: Active Member Role Status Dates Dr. Neville Islas DO Family Provider Active MARYAM Guerra Primary Care Provider Active Team Status: Inactive Member Role Status Dates ABDIAS GuerraC Primary Care Provide r, Attending Provider, Referring Provider Active Team Status: Active Member Role Status Dates Dr. Neville Islas DO Family Provider Active Dr. Neville Islas DO Primary Care Provider Active Team Status: Active Member Role Status Dates Dr. Neville Islas DO Primary Care Provider Active Dr. Jerry Hightower DO Emergency Provider Active Dr. Darrel Carpenter DO Admit Provider, Attending Pr ovider Active Team Status: Active Member Role Status Dates Dr. Neville Islas DO Primary Care Provider Active Dr. Jerry Hightower DO Emergency Provider Active Dr. Darrel Carpenter DO Admit Provider , Attending Provider, Other Provider Active Team Status: Active Member Role Status Dates Dr. Neville Islas DO Primary Care Provider Active Dr. Jerry Hightower DO Emergency Provider Active Dr. Darrel Carpenter DO Admit Provider, Other Provid er Active Dr. Lucy Polanco MD Other Provider Active Dr. Karli Cruz MD Attending Provider Active Team Status: Active Member Role Status Dates Dr. Neville Islas DO Primary Care Provider Active Dr. Stevie Umanzor MD Attending Provider Active Dr. Darrel Carpenter , DO Referring Provider Active Team Status: Active Member Role Status Dates Dr. Neville Islas DO Primary Care Provider Active Dr. Jerry Hightower DO Emergency Provider Active Dr. Darrel Carpenter DO Admit Provider, Other Provid er Active Dr. Lucy Polanco MD Attending Provider, Other Provid er Active Team Status: Active Member Role Status Dates Dr. Neville Islas DO Primary Care Provider Active Dr. Adrian Flores MD Attending Provider Active Dr. Darrel Carpenter , DO Referring Provider Active Team Status: Inactive Member Role Status Dates Dr. Neville Roshan , DO Primary Care Provider, Attendin g Provider Active Team Status: Inactive Member Role Status Dates Dr. Neville Islas , DO Primary Care Provider Active Dr. Jerry Hightower , DO Emergency Provider Active Dr. Darrel Carpenter , DO Admit Provider, Other Provid er Active Dr. Lucy Polanco MD Attending Provider Active Team Status: Inactive Member Role Status Dates Dr. Neville Islas , DO Primary Care Provider Active Dr. Stevie Vela , DO Emergency Provider Active Name Effective Dates (start - stop) Status Members No Information Team Status: Active Member Role Status Dates Mariela Shahram , SENIOR WATER RESOURCES ENGINEER-C Primary Care Provider Active Team Status: Inactive Member Role Status Dates Mariela Shahram , SENIOR WATER RESOURCES ENGINEER-C Primary Care Provider Active Start: July 04, 2024 End: July 04, 2024 Mariela Shahram , SENIOR WATER RESOURCES ENGINEER-C Referring Provider Active St art: July 04, 2024 End: July 04, 2024 Dr. Papi Hernandez MD Attending Provider Active S tart: July 04, 2024 End: July 04, 2024 Team Status: Inactive Member Role Status Dates Mariela Shahram , SENIOR WATER RESOURCES ENGINEER-C Primary Care Provider Active Start: July 18, 2024 End: July 18, 2024 Mariela Shahram , SENIOR WATER RESOURCES ENGINEER-C Referring Provider Active St art: July 18, 2024 End: July 18, 2024 Selam Craig NP, SENIOR WATER RESOURCES ENGINEER-C Attending Provider Active Start: July 18, 2024 End: July 18, 2024 Team Status: Inactive Member Role Status Dates Mariela Shahram , SENIOR WATER RESOURCES ENGINEER-C Primary Care Provider Active Start: August 08, 2024 End: August 08, 2024 Mariela Shahram , SENIOR WATER RESOURCES ENGINEER-C Referring Provider Active St art: August 08, 2024 End: August 08, 2024 Dr. Papi Hernandez MD Attending Provider Active S tart: August 08, 2024 End: August 08, 2024 Team Status: Inactive Member Role Status Dates Mariela Shahram , SENIOR WATER RESOURCES ENGINEER-C Primary Care Provider Active Start: September 05, 2024 End: September 05, 2024 Mariela Shahram , SENIOR WATER RESOURCES ENGINEER-C Attending Provider Active St art: September 05, 2024 End: September 05, 2024 Team Status: Inactive Member Role Status Dates Mariela Shahram , SENIOR WATER RESOURCES ENGINEER-C Primary Care Provider Active Start: October 17, 2024 End: October 17, 2024 Mariela Shahram , SENIOR WATER RESOURCES ENGINEER-C Referring Provider Active St art: October 17, 2024 End: October 17, 2024 Malinda Webster SENIOR WATER RESOURCES ENGINEER, SENIOR WATER RESOURCES ENGINEER-C Attending Provider Active S tart: October 17, 2024 End: October 17, 2024 Team Status: Active Member Role Status Dates Mariela Olson , SENIOR WATER RESOURCES ENGINEER-C Primary Care Provider Active Start: October 17, 2024 Malinda Webster SENIOR WATER RESOURCES ENGINEER, SENIOR WATER RESOURCES ENGINEER-C Attending Provider Active S tart: October 17, 2024 Malinda Webster SENIOR WATER RESOURCES ENGINEER, SENIOR WATER RESOURCES ENGINEER-C Referring Provider Active S tart: October 17, 2024 Team Status: Active Member Role Status Dates Mariela Olson , SENIOR WATER RESOURCES ENGINEER-C Primary Care Provider Active Start: October 24, 2024 Dr. Papi Hernandez MD Attending Provider Active S tart: October 24, 2024 Dr. Papi Hernandez MD Referring Provider Active S tart: October 24, 2024 Team Status: Inactive Member Role Status Dates Mariela Olson , SENIOR WATER RESOURCES ENGINEER-C Primary Care Provider Active Start: October 24, 2024 End: October 24, 2024 Dr. Jerry Hightower DO Emergency Provider Active Start: October 24, 2024 End: October 24, 2024 Team Status: Inactive Member Role Status Dates Mariela Olson , SENIOR WATER RESOURCES ENGINEER-C Primary Care Provider Active Start: October 17, 2024 End: October 17, 2024 Malinda Webster SENIOR WATER RESOURCES ENGINEER, SENIOR WATER RESOURCES ENGINEER-C Attending Provider Active S tart: October 17, 2024 End: October 17, 2024 Malinda Webster SENIOR WATER RESOURCES ENGINEER, SENIOR WATER RESOURCES ENGINEER-C Referring Provider Active S tart: October 17, 2024 End: October 17, 2024 Team Status: Inactive Member Role Status Dates Mariela Olson , SENIOR WATER RESOURCES ENGINEER-C Primary Care Provider Active Start: October 24, 2024 End: October 24, 2024 Dr. Papi Hernandez MD Attending Provider Active S tart: October 24, 2024 End: October 24, 2024 Dr. Papi Hernandez MD Referring Provider Active S tart: October 24, 2024 End: October 24, 2024 Team Status: Inactive Member Role Status Dates Mariela Olson , SENIOR WATER RESOURCES ENGINEER-C Primary Care Provider Active Start: October 24, 2024 End: October 24, 2024 Dr. Jerry Hightower DO Attending Provider Active Start: October 24, 2024 End: October 24, 2024 Dr. Jerry Hightower , DO Emergency Provider Active Start: October 24, 2024 End: October 24, 2024 Team Status: Inactive Member Role Status Dates Mariela Shahram , SENIOR WATER RESOURCES ENGINEER-C Primary Care Provider Active Start: October 31, 2024 End: October 31, 2024 Marielabruce Olson , SENIOR WATER RESOURCES ENGINEER-C Referring Provider Active St art: October 31, 2024 End: October 31, 2024 Dr. Papi Hernandez MD Attending Provider Active S tart: October 31, 2024 End: October 31, 2024 Team Status: Active Member Role Status Dates Marielabruce Olson , SENIOR WATER RESOURCES ENGINEER-C Primary Care Provider Active Start: November 06, 2024 Dr. Harrison Linares , DO Emergency Provider Active Start: November 06, 2024 Dr. Darrel Carpenter , DO Admit Provider Active Start: November 06, 2024 Dr. Darrel Carpenter , DO Attending Provider Active Start: November 06, 2024 Team Status: Inactive Member Role Status Dates Mariela Olson , SENIOR WATER RESOURCES ENGINEER-C Primary Care Provider Active Start: November 06, 2024 End: November 07, 2024 Dr. Harrison Linares , Emergency Provider Active Start: November 06, 2024 End: November 07, 2024 Dr. Darrel Carpenter , DO Admit Provider Active Start: November 06, 2024 End: November 07, 2024 Dr. Darrel Carpenter , DO Other Provider Active Start: November 06, 2024 End: November 07, 2024 Dr. Stevie Harrington , Attending Provider Active Start: November 06, 2024 End: November 07, 2024 Dr. Stevie Harrington , DO Other Provider Active Star t: November 06, 2024 Team Status: Active Member Role Status Dates Mariela Olson , SENIOR WATER RESOURCES ENGINEER-C Primary Care Provider Active Start: November 06, 2024 Dr. Harrison Linares , DO Emergency Provider Active Start: November 06, 2024 Dr. Darrel Carpenter , Admit Provider Active Start: November 06, 2024 Dr. Darrel Carpenter , DO Other Provider Active Start: November 06, 2024 Dr. Stevie Harrington , DO Other Provider Active Star t: November 06, 2024 Dr. Ari Silvestre , DO Attending Provider Active Start: November 06, 2024 Team Status: Active Member Role Status Dates Mariela Olson , SENIOR WATER RESOURCES ENGINEER-C Primary Care Provider Active Start: November 07, 2024 Dr. Harrison Linares , DO Emergency Provider Active Start: November 07, 2024 Dr. Darrel Carpenter , DO Admit Provider Active Start: November 07, 2024 Dr. Darrel Carpenter , DO Other Provider Active Start: November 07, 2024 Dr. Stevie Harrington DO Attending Provider Active Start: November 07, 2024 Dr. Stevie Harrington , Other Provider Active Star t: November 07, 2024 Team Status: Active Member Role Status Dates Mariela Olson SENIOR WATER RESOURCES ENGINEER-C Primary Care Provider Active Start: November 06, 2024 Dr. Harrison Linares , DO Emergency Provider Active Start: November 06, 2024 Dr. Darrel Carpenter , Admit Provider Active Start: November 06, 2024 Dr. Darrel Carpenter DO Other Provider Active Start: November 06, 2024 Dr. Stevie Harrington DO Referring Provider Active Start: November 06, 2024 Dr. Stevie Harrington DO Other Provider Active Star t: November 06, 2024 Dr. Ari Silvestre , Attending Provider Active Start: November 06, 2024 Team Status: Active Member Role Status Dates Mariela Olson SENIOR WATER RESOURCES ENGINEER-C Primary Care Provider Active Start: November 07, 2024 End: November 07, 2024 Dr. Adrian Flores MD Attending Provider Active S tart: November 07, 2024 End: November 07, 2024 Dr. Adrian Flores MD Referring Provider Active S tart: November 07, 2024 End: November 07, 2024 Team Status: Active Member Role Status Dates Mariela Olson SENIOR WATER RESOURCES ENGINEER-C Primary Care Provider Active Start: November 18, 2024 Dr. Lazaro Sharp MD Emergency Provider Active Sta rt: November 18, 2024 Dr. Kelvin Schrader MD Admit Provider Active Start: November 18, 2024 Dr. Kelvin Schrader MD Attending Provider Active Start: November 18, 2024 Dr. Kelvin Schrader MD Referring Provider Active Start: November 18, 2024 Team Status: Inactive Member Role Status Dates Mariela Olson SENIOR WATER RESOURCES ENGINEER-C Primary Care Provider Active Start: November 18, [...] Active Member Role Status Dates Mariela Olson NP-Jenifer Primary Care Provider Active Start: November 18, [...] Active Member Role Status Dates Mariela Olson NP-Jenifer Primary Care Provider Active Start: November 19, [...] Active Member Role Status Dates Mariela Olson SENIOR WATER RESOURCES ENGINEER-C Primary Care Provider Active Start: November 18, 2024 Dr. Lazaro Sharp MD Emergency Provider Active Sta rt: November 18, 2024 Dr. Kelvin Schrader MD Admit Provider Active Start: November 18, 2024 Dr. Kelvin Schrader MD Attending Provider Active Start: November 18, 2024 Dr. Kelvin Schrader MD Other Provider Active Start: November 18, 2024 Team Status: Active Member Role Status Dates Mariela Olson SENIOR WATER RESOURCES ENGINEER-C Primary Care Provider Active Start: November 19, [...] Active Member Role Status Dates Mariela Olson SENIOR WATER RESOURCES ENGINEER-C Primary Care Provider Active Start: November 20, 2024 Dr. Lazaro Sharp MD Emergency Provider Active Sta rt: November 20, 2024 Dr. Kelvin Schrader MD Admit Provider Active Start: November 20, 2024 Dr. Kelvin Schrader MD Other Provider Active Start: November 20, 2024 Dr. Neville Jang DO Attending Provider Active Start: November 20, 2024 Dr. Neville aJng DO Other Provider Active S tart: November 20, 2024 Team Status: Inactive Member Role Status Dates Mariela Olson SENIOR WATER RESOURCES ENGINEER-C Primary Care Provider Active Start: November 28, 2024 End: November 28, 2024 Mariela Shahram , SENIOR WATER RESOURCES ENGINEER-C Referring Provider Active St art: November 28, 2024 End: November 28, 2024 Dr. Brenda Araujo MD Attending Provider Active Start: November 28, 2024 End: November 28, 2024 Team Status: Inactive Member Role Status Dates Mariela Shahram , SENIOR WATER RESOURCES ENGINEER-C Primary Care Provider Active Start: November 28, 2024 End: November 28, 2024 Malinda Webster SENIOR WATER RESOURCES ENGINEER, SENIOR WATER RESOURCES ENGINEER-C Attending Provider Active S tart: November 28, 2024 End: November 28, 2024 Malinda Webster SENIOR WATER RESOURCES ENGINEER, SENIOR WATER RESOURCES ENGINEER-C Referring Provider Active S tart: November 28, 2024 End: November 28, 2024 Team Status: Active Member Role Status Dates Mariela Shahram , SENIOR WATER RESOURCES ENGINEER-C Primary Care Provider Active Start: November 28, 2024 Dr. Adrian Flores MD Attending Provider Active S tart: November 28, 2024 Team Status: Inactive Member Role Status Dates Mariela Shahram , SENIOR WATER RESOURCES ENGINEER-C Primary Care Provider Active Start: November 30, 2024 End: November 30, 2024 Dr. Brenda Araujo MD Attending Provider Active Start: November 30, 2024 End: November 30, 2024 Dr. Brenda Araujo MD Referring Provider Active Start: November 30, 2024 End: November 30, 2024 Team Status: Inactive Member Role Status Dates Mariela Shahram , SENIOR WATER RESOURCES ENGINEER-C Primary Care Provider Active Start: December 04, 2024 End: December 04, 2024 Mariela Shahram , SENIOR WATER RESOURCES ENGINEER-C Referring Provider Active St art: December 04, 2024 End: December 04, 2024 Dr. rAi Silvestre DO Attending Provider Active Start: December 04, 2024 End: December 04, 2024 Team Status: Active Member Role Status Dates Mariela Shahram , SENIOR WATER RESOURCES ENGINEER-C Primary Care Provider Active Start: December 05, 2024 Dr. Brenda Araujo MD Attending Provider Active Start: December 05, 2024 Dr. Brenda Araujo MD Referring Provider Active Start: December 05, 2024 Team Status: Inactive Member Role Status Dates Mariela Shahram , SENIOR WATER RESOURCES ENGINEER-C Primary Care Provider Active Start: December 05, 2024 End: December 05, 2024 Dr. Brenda Araujo MD Attending Provider Active Start: December 05, 2024 End: December 05, 2024 Dr. Brenda Araujo MD Referring Provider Active Start: December 05, 2024 End: December 05, 2024 Team Status: Inactive Member Role Status Dates Mariela Olson SENIOR WATER RESOURCES ENGINEER-C Primary Care Provider Active Start: December 14, 2024 End: December 14, 2024 Malinda Webster SENIOR WATER RESOURCES ENGINEER, SENIOR WATER RESOURCES ENGINEER-C Attending Provider Active S tart: December 14, 2024 End: December 14, 2024 Dr. Brenda Araujo MD Referring Provider Active Start: December 14, 2024 End: December 14, 2024 Team Status: Inactive Member Role Status Dates Mariela Olson SENIOR WATER RESOURCES ENGINEER-C Primary Care Provider Active Start: January 09, 2025 End: January 09, 2025 Mariela Olson SENIOR WATER RESOURCES ENGINEER-C Referring Provider Active St art: January 09, 2025 End: January 09, 2025 Dr. 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 Adrian Flores MD Attending Provider Active S tart: January 06, 2025 Dr. Adrian Flores MD Referring Provider Active S tart: January 06, 2025 Dr. Adrian Flores MD Other Provider Active Start : January 06, 2025 Team Status: Inactive Member Role Status Dates Mariela Olson SENIOR WATER RESOURCES ENGINEER-C Primary Care Provider Active Start: January 14, 2025 End: January 14, 2025 Dr. Adrian Flores MD Attending Provider Active S tart: January 14, 2025 End: January 14, 2025 Dr. Adrian Flores MD Referring Provider Active S tart: January 14, 2025 End: January 14, 2025 Team Status: Active Member Role/Relationship Status Dates Mariela Olson SENIOR WATER RESOURCES ENGINEER-C Primary Care Provider Active Team Status: Inactive Member Role/Relationship Status Dates Mariela Shahram , SENIOR WATER RESOURCES ENGINEER-C Primary Care Provider Active Start: October 17, 2024 End: October 17, 2024 Mariela Olson SENIOR WATER RESOURCES ENGINEER-C Referring Provider Active St art: October 17, 2024 End: October 17, 2024 Malinda Webster SENIOR WATER RESOURCES ENGINEER, SENIOR WATER RESOURCES ENGINEER-C Attending Provider Active S tart: October 17, 2024 End: October 17, 2024 Team Status: Inactive Member Role/Relationship Status Dates Mariela Olson , SENIOR WATER RESOURCES ENGINEER-C Primary Care Provider Active Start: October 17, 2024 End: October 17, 2024 Malinda Webster SENIOR WATER RESOURCES ENGINEER, SENIOR WATER RESOURCES ENGINEER-C Attending Provider Active S tart: October 17, 2024 End: October 17, 2024 Malinda Webster SENIOR WATER RESOURCES ENGINEER, SENIOR WATER RESOURCES ENGINEER-C Referring Provider Active S tart: October 17, 2024 End: October 17, 2024 Team Status: Active Member Role/Relationship Status Dates Mariela Olson , SENIOR WATER RESOURCES ENGINEER-C Primary Care Provider Active Start: October 24, 2024 Dr. Papi Hernandez MD Attending Provider Active S tart: October 24, 2024 Dr. Papi Hernandez MD Referring Provider Active S tart: October 24, 2024 Team Status: Inactive Member Role/Relationship Status Dates Mariela Olson , SENIOR WATER RESOURCES ENGINEER-C Primary Care Provider Active Start: October 24, 2024 End: October 24, 2024 Dr. Papi Hernandez MD Attending Provider Active S tart: October 24, 2024 End: October 24, 2024 Dr. Papi Hernanedz MD Referring Provider Active S tart: October 24, 2024 End: October 24, 2024 Team Status: Inactive Member Role/Relationship Status Dates Mariela Olson SENIOR WATER RESOURCES ENGINEER-C Primary Care Provider Active Start: October 24, 2024 End: October 24, 2024 Dr. Jerry Hightower DO Attending Provider Active Start: October 24, 2024 End: October 24, 2024 Dr. Jerry Hightower DO Emergency Provider Active Start: October 24, 2024 End: October 24, 2024 Team Status: Inactive Member Role/Relationship Status Dates Mariela Olson , SENIOR WATER RESOURCES ENGINEER-C Primary Care Provider Active Start: October 31, 2024 End: October 31, 2024 Mariela Olson SENIOR WATER RESOURCES ENGINEER-C Referring Provider Active St art: October 31, 2024 End: October 31, 2024 Dr. Papi Hernandez MD Attending Provider Active S tart: October 31, 2024 End: October 31, 2024 Team Status: Inactive Member Role/Relationship Status Dates Mariela Oslon , SENIOR WATER RESOURCES ENGINEER-C Primary Care Provider Active Start: November 06, [...] November 06, 2024 Team Status: Active Member Role/Relationship Status Dates Mariela Olson , SENIOR WATER RESOURCES ENGINEER-C Primary Care Provider Active Start: November 06, 2024 Dr. Harrison Linares , DO Emergency Provider Active Start: November 06, 2024 Dr. Darrel Carpenter , DO Admit Provider Active Start: November 06, 2024 Dr. Darrel Carpenter , DO Other Provider Active Start: November 06, 2024 Dr. Stevie Harrington , Referring Provider Active Start: November 06, 2024 Dr. Stevie Harrington , Other Provider Active Star t: November 06, 2024 Dr. Ari Silvestre , Attending Provider Active Start: November 06, 2024 Team Status: Active Member Role/Relationship Status Dates Mariela Olson , SENIOR WATER RESOURCES ENGINEER-C Primary Care Provider Active Start: November 07, 2024 End: November 07, 2024 Dr. Adrian Flores MD Attending Provider Active S tart: November 07, 2024 End: November 07, 2024 Dr. Adrian Flores MD Referring Provider Active S tart: November 07, 2024 End: November 07, 2024 Team Status: Active Member Role/Relationship Status Dates Mariela Olson , SENIOR WATER RESOURCES ENGINEER-C Primary Care Provider Active Start: November 07, 2024 Dr. Harrison Linares , DO Emergency Provider Active Start: November 07, 2024 Dr. Darrel Carpenter , DO Admit Provider Active Start: November 07, 2024 Dr. Darrel Carpenter DO Other Provider Active Start: November 07, 2024 Dr. Stevie Harrington DO Attending Provider Active Start: November 07, 2024 Dr. Stevie Harrington DO Other Provider Active Star t: November 07, 2024 Team Status: Inactive Member Role/Relationship Status Dates Mariela Olson SENIOR WATER RESOURCES ENGINEER-C Primary Care Provider Active Start: November 18, [...] November 20, 2024 Team Status: Active Member Role/Relationship Status Dates Mariela Olson SENIOR WATER RESOURCES ENGINEER-C Primary Care Provider Active Start: November 18, 2024 Dr. Lazaro Sharp MD Emergency Provider Active Sta rt: November 18, 2024 Dr. Kelvin Schrader MD Admit Provider Active Start: November 18, 2024 Dr. Kelvin Schrader MD Attending Provider Active Start: November 18, 2024 Dr. Kelvin Schrader MD Other Provider Active Start: November 18, 2024 Team Status: Active Member Role/Relationship Status Dates Mariela Olson SENIOR WATER RESOURCES ENGINEER-C Primary Care Provider Active Start: November 19, [...] tart: November 19, 2024 Dr. Ari Silvestre , Attending Provider Active Start: November 19, 2024 Team Status: Active Member Role/Relationship Status Dates Mariela Olson , SENIOR WATER RESOURCES ENGINEER-C Primary Care Provider Active Start: November 19, [...] November 19, 2024 Team Status: Active Member Role/Relationship Status Dates Mariela Olson , SENIOR WATER RESOURCES ENGINEER-C Primary Care Provider Active Start: November 20, [...] November 20, 2024 Team Status: Inactive Member Role/Relationship Status Dates Mariela Olson , SENIOR WATER RESOURCES ENGINEER-C Primary Care Provider Active Start: November 28, 2024 End: November 28, 2024 Mariela Olson , SENIOR WATER RESOURCES ENGINEER-C Referring Provider Active St art: November 28, 2024 End: November 28, 2024 Dr. Brenda Araujo MD Attending Provider Active Start: November 28, 2024 End: November 28, 2024 Team Status: Inactive Member Role/Relationship Status Dates Mariela Olson , SENIOR WATER RESOURCES ENGINEER-C Primary Care Provider Active Start: November 28, 2024 End: November 28, 2024 Malinda Webster SENIOR WATER RESOURCES ENGINEER, SENIOR WATER RESOURCES ENGINEER-C Attending Provider Active S tart: November 28, 2024 End: November 28, 2024 Malinda Webster SENIOR WATER RESOURCES ENGINEER, SENIOR WATER RESOURCES ENGINEER-C Referring Provider Active S tart: November 28, 2024 End: November 28, 2024 Team Status: Active Member Role/Relationship Status Dates Mariela Olson , SENIOR WATER RESOURCES ENGINEER-C Primary Care Provider Active Start: November 28, 2024 Dr. Adrian Flores MD Attending Provider Active S tart: November 28, 2024 Team Status: Inactive Member Role/Relationship Status Dates Mariela Shahram , SENIOR WATER RESOURCES ENGINEER-C Primary Care Provider Active Start: November 30, 2024 End: November 30, 2024 Dr. Brenda Araujo MD Attending Provider Active Start: November 30, 2024 End: November 30, 2024 Dr. Brenda Araujo MD Referring Provider Active Start: November 30, 2024 End: November 30, 2024 Team Status: Inactive Member Role/Relationship Status Dates Mariela Shahram , SENIOR WATER RESOURCES ENGINEER-C Primary Care Provider Active Start: December 04, 2024 End: December 04, 2024 Mariela Shahram , SENIOR WATER RESOURCES ENGINEER-C Referring Provider Active St art: December 04, 2024 End: December 04, 2024 Dr. Ari Silvestre DO Attending Provider Active Start: December 04, 2024 End: December 04, 2024 Team Status: Inactive Member Role/Relationship Status Dates Mariela Shahram , SENIOR WATER RESOURCES ENGINEER-C Primary Care Provider Active Start: December 05, 2024 End: December 05, 2024 Dr. Brenda Araujo MD Attending Provider Active Start: December 05, 2024 End: December 05, 2024 Dr. Brenda Araujo MD Referring Provider Active Start: December 05, 2024 End: December 05, 2024 Team Status: Inactive Member Role/Relationship Status Dates Mariela Shahram , SENIOR WATER RESOURCES ENGINEER-C Primary Care Provider Active Start: December 14, 2024 End: December 14, 2024 Malinda Webster SENIOR WATER RESOURCES ENGINEER, SENIOR WATER RESOURCES ENGINEER-C Attending Provider Active S tart: December 14, 2024 End: December 14, 2024 Dr. Brenda Araujo MD Referring Provider Active Start: December 14, 2024 End: December 14, 2024 Team Status: Active Member Role/Relationship Status Dates Mariela Shahram , SENIOR WATER RESOURCES ENGINEER-C Primary Care Provider Active Start: January 06, 2025 Dr. Adrian Flores MD Attending Provider Active S tart: January 06, 2025 Dr. Adrian Flores MD Referring Provider Active S tart: January 06, 2025 Dr. Adrian Flores MD Other Provider Active Start : January 06, 2025 Team Status: Inactive Member Role/Relationship Status Dates Mariela Shahram , SENIOR WATER RESOURCES ENGINEER-C Primary Care Provider Active Start: January 09, 2025 End: January 09, 2025 MARYAM Guerra Referring Provider Active St art: January 09, 2025 End: January 09, 2025 Dr. Brenda Araujo MD Attending Provider Active Start: January 09, 2025 End: January 09, 2025 Team Status: Inactive Member Role/Relationship Status Dates Mariela Olson NP-Jenifer Primary Care Provider Active Start: January 14, 2025 End: January 14, 2025 Dr. Adrian Flores MD Attending Provider Active S tart: January 14, 2025 End: January 14, 2025 Dr. Adrian Flores MD Referring Provider Active S tart: January 14, 2025 End: January 14, 2025 Team Status: Active Member Role/Relationship Status Dates MARYAM Guerra Primary Care Provider Active Start: February 07, 2025 Dr. Neville Islas DO Attending Provider Active Start: February 07, 2025 Team Status: Active Member Role/Relationship Status Dates MARYAM Guerra Primary Care Provider Active Start: February 11, 2025 Dr. Harrison Linares DO Emergency Provider Active Start: February 11, 2025 Dr. Ramirez Horne , Admit Provider Active Start: February 11, 2025 Dr. Ramirez Horne DO Attending Provider Active Start: February 11, 2025 Goals (unrecognized section and content) Health Concern Goal Type Priority Status No Information (unrecognized sect ion and content) No Status Records FoundNo Status Records FoundNo Status Records FoundNo Status Records Found INFORMATION SOURCE (unrecogn ized section and content) DATE CREATED AUTHOR 01/14/2025 [facility] DATE CREATED AUTHOR AUTHOR'S ORGANIZ ATION 01/14/2025 [facility] DATE CREATED AUTHOR AUTHOR'S ORGANIZ ATION 01/24/2025 [facility] DATE CREATED AUTHOR AUTHOR'S ORGANIZ ATION 02/07/2025 [facility] FOR RECORDS PERTAINING TO PATIENTS WHO ARE [...] BE BASED ON THE PRIMARY CLINICAL RECORDS. [facility] [employer] [facility] provides no warranty or guarantee of the accuracy or completeness of information in this document.
--- OUTSIDE RECORDS SUMMARY | 2025-02-11 05:06 | XMS RPT_ITS | CCD ---
Author Organization [facility] Care Team Providers Care Desk Maker Name Role Phone Neville Islas DO Primary [...] Provider Darrel Pringle MD Unavailable Unavailable Shahram C[employer] G[employer]ARD SUPERVISOR-C, Mariela Primary Care Provider Shahram [employer] SUPERVISOR-C, Mariela Referring Provider [phone] Papi Hernandez MD Attending Provider Rafa [employer] SUPERVISOR-C, Selam Attending Provider Shahram [employer] SUPERVISOR-C, Mariela Attending Provider Darin C[employer] G[employer] YARD SUPERVISOR-CMalinda Attending Provider Darin [employer]ARD SUPERVISOR-C, Malinda Morillo Referring Provider Dr. Papi Hernandez MD Referring Provider Dr. Jerry Hightower DO Emergency Provider Dr. Jerry Hightower DO Attending Provider [phone] Shahram [employer]ARD SUPERVISOR-C, Alvarado Primary Care Provider Shahram [employer] SUPERVISOR-C, Mariela Referring Provider Mary DAVIS, Dr. Turpin Attending Provider Vijay FARLEY, Dr. Terry Emergency Provider de Tommy DO, Dr. Rojo Admit Provider Unavail able de Tommy DO, Dr. Rojo Attending Provider Unav ailable de Tommy DO, Dr. Rojo Other Provider Unavail able Santappmarysol FARLEY, Dr. Hubbard Attending Provider Juany FARLEY, Dr. Hubbard Other Provider Friend , Dr. Chapman Attending Provider Shahram [employer] SUPERVISOR-C, Alvarado Primary Care Provider Shahram [employer] SUPERVISOR-C, Mariela Referring Provider Juany FARLEY, Dr. Hubbard [...] Dr. Neville Jang DO Other Provider Shahram [employer]ARD SUPERVISOR-C, Alvarado Primary Care Provider Shahram [employer]ARD SUPERVISOR-C, Mariela Referring Provider Mary DAVIS, Dr. Turpin Attending Provider Shahram [employer]ARD SUPERVISOR-C, Mariela Attending Provider Roof [employer] G[employer] YARD SUPERVISOR-C, Malinda Morillo Attending Provider Roof [employer]ARD SUPERVISOR-C, Malinda Morillo Referring Provider Mary DAVIS, Dr. [...] Dr. Brenda Araujo MD Referring Provider Shahram [employer]ARD SUPERVISOR-C, Mariela Primary Care Provider Shahram [employer]ARD SUPERVISOR-C, Mariela Referring Provider Dr. Papi Hernandez MD Attending Provider Dr. Brenda Araujo MD Attending Provider Dr. Brenda Araujo MD Referring Provider Shahram [employer] SUPERVISOR-C, Alvarado Primary Care Provider Shahram [employer] SUPERVISOR-C, Mariela Referring Provider [phone] Papi Hernandez MD Attending Provider Shahram [employer] SUPERVISOR-C, Alvarado Primary Care Provider [phone] Neville Islas DO Primary Care Provider Darrel [...] Referring Unavailable Shahram, Mariela Attending Unavailable Shahram, Alvarado Primary Care Unavailable Shahram, Alvarado Primary Care Unavailable Darrel Carpenter Consulting Unavailable [...] Unavailable Shahram, Mariela Primary Care Unavailable Rafa COTTON GIN YARD SUPERVISORSelam Attending Unavailable Neville Islas Primary Care Unavailable Neville Islas Attending Unavailable Neville Islas Referring Unavailable Shahram, Mariela Primary Care Unavailable Roof C[employer] G[employer] YARD SUPERVISOR, Malinda H Referring Unavailable Roof [employer]ARD SUPERVISOR, Malinda H Attending Unavailable Roof [employer]ARD SUPERVISOR, Malinda H Attending Unavailable Roof [employer]ARD SUPERVISOR, Malinda H Referring Unavailable Shahram, Mariela Primary Care Unavailable Shahram, Mariela Primary Care Unavailable Papi Hernandez Attending Unavailable Papi Hernandez Referring Unavailable Isckarus, Thaour Referring Unavailable Isckarus Mansour Attending Unavailable Shahram, Mariela Primary Care Unavailable Isckarus, Mansour Referring Unavailable Isckarus, Mansour Attending Unavailable Shahram, Mariela Primary Care Unavailable Mark, Adrian Attending Unavailable Mark, [place] Referring Unavailable Shahram, Mariela Primary Care Unavailable Shahram, Mariela Attending Unavailable Shahram, Mariela Referring Unavailable Shahram, Mariela Primary Care Unavailable Mark, Adrian Attending Unavailable Mark, [place] Referring Unavailable Shahram, Mariela Primary Care Unavailable [...] Consulting Unavailable Mark Adrian Attending Unavailable Mark, [place] Referring Unavailable Shahram, Mariela Primary Care Unavailable [...] Unavailable Shahram, Mariela Primary Care Unavailable Roof [employer]ARD SUPERVISOR, Malinda Morillo Attending Unavailable Shahram, Mariela Referring [...] Unavailable Shahram, Mariela Primary Care Unavailable Roof [employer]ARD SUPERVISOR, Malinda Morillo Attending Unavailable Isckarus, Mansour Referring Unavailable Shahram, Mariela Primary Care Unavailable Shahram, Mariela Primary Care Unavailable Jerry Hightower Attending Unavailable Du Thomas Attending Unavailable Shahram, Mariela Referring Unavailable Shahram, Mariela Primary Care Unavailable Sunny Mancia Consulting Unavailable Dr. Neville Islas DO Attending Provider Dr. Ramirez Horne DO Admit Provider [phone] Dr. Ramirez Horne DO Attending Provider Allergies Allergy Classification Reported Allergen(s) Allergy Type Date of Onset Reaction(s) Facility (3 sources) fentaNYL Drug Allergy 5 Low blood pressure [facility] (1 source) cloNIDine Drug Allergy 4 [facility] Repository (1 source) fentaNYL Drug Allergy 5 [facility] Repository (1 source) Wheat preparation Drug Allergy 4 [facility] Repository Medications Current Medications Medication Drug [...] 04-23-2024 End: 04-25-2024 take 1 capsule by [facility] twice daily at mealtime potassium [...] Coronary atherosclerosis; Translations: [Atherosclerotic heart disease of [place] coronary artery without angina pectoris] [...] artery of lower limb; Translations: [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 [...] (Unsp spec) [#/Vol] 0.56 10*3/uL Low 0.83-4.51 [facility] Activated partial thrombopla stin time (aPTT) in platelet poor plasma by coagulation aOrdered By: Harrison Linares on 02-10-2025 aPTT Coag (PPP) [Time] 28.2 s 24.1-36.2 [facility] Amorphous sediment detection in urine sediment by light microscopyOrdered By: Harrison Linares on 02-10-2025 Amorphous sediment LM Ql (Urine sed) 1+ [facility] Anion gap in Serum or Plasma Ordered By: Harrison Linares on 02-10-2025 Anion gap [Moles/Vol] 13 mmol/L 5-15 [facility] Automated lymphocyte count a s percentage of total leukocytesOrdered By: Harrison Linares on 02-10-2025 Lymphocytes/100 WBC Auto (Unsp spec) 7.7 % Low 19-41 [facility] BUN/creatinine ratioOrdered By: Harrison Linares on 02-10-2025 Urea nitrogen/Creatinine [Mass ratio] 11.2 mg/mg 10-20 [facility] Basophil percentageOrdered B y: Harrison Linares on 02-10-2025 Basophils/100 WBC (Bld) 0.4 % 0-1 [facility] Bilirubin Test strip Ql (U)O rdered By: Harrison Linares on 02-10-2025 Bilirubin Ql (U) 3 mg/dL High Negative [facility] Bilirubin directOrdered By: Harrison Linares on 02-10-2025 Bilirubin.direct [Mass/Vol] 5.21 mg/dL High 0.00-0.30 [facility] Bilirubin, totalOrdered By: Harrison Linares on 02-10-2025 Bilirubin [Mass/Vol] 7.43 mg/dL High 0.00-1.30 [facility] Carbon dioxide, total [Moles /volume] in Central venous bloodOrdered By: Harrison Linares on 02-10-2025 CO2 [Moles/Vol] 19.0 mmol/L Low 21.0-32.0 [facility] Chloride assayOrdered By: Erica Linares on 02-10-2025 Chloride [Moles/Vol] 92 mmol/L Low 98-108 [facility] Eosinophil percentageOrdered By: Harrison Linares on 02-10-2025 Eosinophils/100 WBC (Bld) 1.1 % 0-5 [facility] Erythrocyte distribution wid th ratioOrdered By: Harrison Linares on 02-10-2025 Erythrocyte distribution width (RBC) [Ratio] 15.2 % High 11.6-14.6 [facility] Erythrocyte distribution wid th standard deviationOrdered By: Harrison Linares on 02-10-2025 Erythrocyte distribution width (RBC) [Ratio] 47.2 fl High 35.1-43.9 [facility] Glomerular filtration rate ( GFR) estimation/1.73 sq m using serum, plasma, or whole bOrdered By: Harrison Linares on 02-10-2025 GFR/1.73 sq M.predicted among non-blacks MDRD (S/P/Bld) [Vol rate/Area] 87 mL/min/{1.73_m2} >60 [facility] Hematocrit Auto (Bld) [Volum e fraction]Ordered By: Harrison Linares on 02-10-2025 Hematocrit (Bld) [Volume fraction] 30.3 % Low 40-54 [facility] Hemoglobin measurementOrdere d By: Harrison Linares on 02-10-2025 Hemoglobin (Bld) [Mass/Vol] 10.3 g/dL Low 13.0-16.5 [facility] Immature granulocytes/100 WB C Auto (Bld)Ordered By: Harrison Linares on 02-10-2025 Immature granulocytes/100 WBC (Bld) 0.300 % 0.0-0.9 [facility] Ketones Test strip Ql (U)Ord ered By: Harrison iLnares on 02-10-2025 Ketones Ql (U) Negative Negative [facility] MCV (mean corpuscular volume ) determinationOrdered By: Harrison Linares on 02-10-2025 MCV (RBC) [Entitic vol] 84.6 fL 80-94 [facility] Mean corpuscular hemoglobin (MCH) determinationOrdered By: Harrison Linares on 02-10-2025 MCH (RBC) [Entitic mass] 28.8 pg 27.0-32.0 [facility] Monocyte percentageOrdered B y: Harrison Linares on 02-10-2025 Monocytes/100 WBC (Bld) 12.4 % High 0-10 [facility] Mucus LM Ql (Urine sed)Order ed By: Harrison Linares on 02-10-2025 Mucus Ql (Urine sed) 0 SEEN /hpf [facility] Neutrophil percentageOrdered By: Harrison Linares on 02-10-2025 Neutrophils/100 WBC (Bld) 78.1 % High 47-70 [facility] Nitrite Test strip Ql (U)Ord ered By: Harrison Linares on 02-10-2025 Nitrite Ql (U) Negative Negative [facility] No Panel InformationOrdered By: Harrison Linares on 02-10-2025 132 U/L High <38 [facility] Platelet countOrdered By: Erica Linares on 02-10-2025 Platelets (Bld) [#/Vol] 266 10*3/uL 150-450 [facility] Potassium measurement (mass/ volume)Ordered By: Harrison Linares on 02-10-2025 Potassium (Unsp spec) [Mass/Vol] 3.9 mmol/L 3.3-5.1 [facility] Protein Test strip Ql (U)Ord ered By: Harrison Linares on 02-10-2025 Protein Ql (U) 30 mg/dl High Negative [facility] Prothrombin timeOrdered By: Harrison Linares on 02-10-2025 PT Coag (PPP) [Time] 13.6 s 11.7-14.9 [facility] RBC Auto (Bld) [#/Vol]Ordere d By: Harrison Linares on 02-10-2025 RBC (Bld) [#/Vol] 3.58 10*6/uL Low 4.6-6.2 [facility] Serum creatinine measurement (mass/volume)Ordered By: Harrison Linares on 02-10-2025 Creatinine [Mass/Vol] 0.87 mg/dL 0.70-1.20 [facility] Serum globulin measurementOr dered By: Harrison Linares on 02-10-2025 Globulin (S) [Mass/Vol] 2.7 g/dL 2.2-4.2 [facility] Serum glucose measurement (m ass/volume)Ordered By: Harrison Linares on 02-10-2025 Glucose [Mass/Vol] 120 mg/dL High 70-99 [facility] Serum or plasma alanine carrion otransferase (ALT) measurementOrdered By: Harrison Linares on 02-10-2025 ALT [Catalytic activity/Vol] 160 U/L High <47 [facility] Serum or plasma albumin shagufta urement (mass/volume)Ordered By: Harrison Linares on 02-10-2025 Albumin [Mass/Vol] 3.8 g/dL 3.4-4.8 [facility] Serum or plasma alkaline airam sphatase measurementOrdered By: Harrison Linares on 02-10-2025 ALP [Catalytic activity/Vol] 516 U/L High 40-129 [facility] Serum or plasma calcium shagufta urement (mass/volume)Ordered By: Harrison Linares on 02-10-2025 Calcium [Mass/Vol] 8.9 mg/dL 7.6-11.0 [facility] Serum or plasma urea nitroge n measurement (mass/volume)Ordered By: Harrison Linares on 02-10-2025 Urea nitrogen [Mass/Vol] 10 mg/dL 4-19 [facility] Sodium levelOrdered By: Dylan Linares on 02-10-2025 Sodium [Moles/Vol] 124 mmol/L Low 133-145 [facility] Squamous epithelial cells de tection in urine sediment by light microscopyOrdered By: Harrison Linares on 02-10-2025 Epithelial cells.squamous LM Ql (Urine sed) 0-5 SEEN /hpf 0-5 [facility] Total proteinOrdered By: Dewayne Linares on 02-10-2025 Protein [Mass/Vol] 6.5 g/dL 5.9-8.4 [facility] Urine clarityOrdered By: Dewayne Linares on 02-10-2025 Clarity (U) Cloudy Clear [facility] Urine color determinationOrd ered By: Harrison Linares on 02-10-2025 Color (U) Yellow Yellow [facility] Urine glucose detectionOrder ed By: Harrison Linares on 02-10-2025 Glucose Ql (U) Normal mg/dl Normal [facility] Urine leukocyte esterase det ection by dipstickOrdered By: Harrison Linares on 02-10-2025 Leukocyte esterase Test strip Ql (U) 25 /ul High Negative [facility] Urine pHOrdered By: Harrison wren on 02-10-2025 pH (U) 6.0 [pH] 5.0 - 8.0 [facility] Urine sediment bacteria coun t by microscopy (number/high power field)Ordered By: Harrison Linares on 02-10-2025 Bacteria LM.HPF (Urine sed) [#/Area] 0 /[HPF] None Seen [facility] Urine specific gravity measu rementOrdered By: Harrison Linares on 02-10-2025 Specific gravity (U) [Rel density] 1.015 1.002-1.030 [facility] Urine urobilinogen measureme ntOrdered By: Harrison Linares on 02-10-2025 Urobilinogen Ql (U) 1 mg/dl High Normal [facility] Venous blood ammonia measure mentOrdered By: Harrison Linares on 02-10-2025 Ammonia (P) [Moles/Vol] 25.6 umol/L 16-60 [facility] White blood cell (WBC) count Ordered By: Harrison Linares on 02-10-2025 WBC (Bld) [#/Vol] 7.3 10*3/uL 4.4-11.0 [facility] White blood cell countOrdere d By: Harrison Linares on 02-10-2025 White blood cell count 0-5 SEEN /hpf 0-5 [facility] Bilirubin Test strip Ql (U)O rdered By: Neville Islas on 02-07-2025 Bilirubin Ql (U) 1 mg/dL High Negative [facility] Ketones Test strip Ql (U)Ord ered By: Neville Islas on 02-07-2025 Ketones Ql (U) 5 mg/dl High Negative [facility] Nitrite Test strip Ql (U)Ord ered By: Neville Islas on 02-07-2025 Nitrite Ql (U) Negative Negative [facility] Protein Test strip Ql (U)Ord ered By: Neville Islas on 02-07-2025 Protein Ql (U) 30 mg/dl High Negative [facility] Urine clarityOrdered By: Yessi Islas on 02-07-2025 Clarity (U) Clear Clear [facility] Urine color determinationOrd ered By: Neville Islas on 02-07-2025 Color (U) Yellow Yellow [facility] Urine cultureOrdered By: Yessi Islas on 02-07-2025 Bacteria identified Cx Nom (U) Culture exhibits no growth. [facility] Urine glucose detectionOrder ed By: Neville Islas on 02-07-2025 Glucose Ql (U) Normal mg/dl Normal [facility] Urine leukocyte esterase det ection by dipstickOrdered By: Neville Islas on 02-07-2025 Leukocyte esterase Test strip Ql (U) Negative Negative [facility] Urine pHOrdered By: Neville barron on 02-07-2025 pH (U) 6.0 [pH] 5.0 - 8.0 [facility] Urine specific gravity measu rementOrdered By: Neville Islas on 02-07-2025 Specific gravity (U) [Rel density] 1.015 1.002-1.030 [facility] Urine urobilinogen measureme ntOrdered By: Neville Islas on 02-07-2025 Urobilinogen Ql (U) Normal mg/dl Normal [facility] 36on 02-04-2025 36 Spoke with patient t o schedule CTA 02/19 at 11:30 am. In scheduling, patient has Medicare Part A only. Reviewed with central scheduling and patient would have to pay 50% upfront. Spoke with and confirmed patient is self pay with medicare part A. Instructed will have payroll secretary arrange for financial counseling/assistance with [facility] prior to any appts/tests/procedures. Routed to Clau Wesley to arrange and call patient back [facility] 01-31-2025 36 Left message for vanessa miller to call office back to schedule CT scan on 02/19 [place] [id number] 01-29-2025 36 Patient scheduled in valve clinic on 02/19 for aortic stenosis, cath and echo completed by Dr. Flores's office. BMP completed 01/08/25 in media. Pended order for CTA TAVR, PROJECT SYSTEMS ENGINEER to sign. Will call patient to schedule same day as OV. Normal [facility] 01-28-2025 36 Chart made and C[employer] SUPERVISOR ondina herr mailed [facility] 01-22-2025 36 VC appt made for 01/30 09/25 I need to make chart and mail [employer] SUPERVISOR packet [facility] Oncology Visit Reporton 12-30 Oncology Visit Report Normal [facility] Absolute lymphocyte countOrd ered By: Malinda Webster on 01-08-2025 Lymphocytes Auto (Unsp spec) [#/Vol] 0.70 10*3/uL Low 0.83-4.51 [facility] Anion gap in Serum or Plasma Ordered By: Malinda Webster on 01-08-2025 Anion gap [Moles/Vol] 12 mmol/L 5-15 [facility] Automated lymphocyte count a s percentage of total leukocytesOrdered By: Malinda Webster on 01-08-2025 Lymphocytes/100 WBC Auto (Unsp spec) 12.0 % Low 19-41 [facility] BUN/creatinine ratioOrdered By: Malinda Webster on 01-08-2025 Urea nitrogen/Creatinine [Mass ratio] 12.0 mg/mg - [facility] Basic Metabolic Profile (BMP )on 01-08-2025 BUN/CRE 12.0 RATIO Normal - [facility] Comment on above: Performed By: #### L 100.0100, L500.2500 ####[facility] [address] [place], [address] Calcium [Mass/Vol] 9.3 mg/dL Normal 7.6-11.0 [facility] Comment on above: Performed By: #### L 100.0100, L500.2500 ####[facility] [address] [place], [address] Chloride [Moles/Vol] 96 mmol/L Low 98-108 [facility] Comment on above: Performed By: #### L 100.0100, L500.2500 ####[facility] [address] [place], [address] CO2 [Moles/Vol] 23.4 mmol/L Normal 21.0-32.0 [facility] Comment on above: Performed By: #### L 100.0100, L500.2500 ####[facility] [address] [place], [address] Creatinine [Mass/Vol] 0.97 mg/dL Normal 0.70-1.20 [facility] Comment on above: Performed By: #### L 100.0100, L500.2500 ####[facility] [address] [place], [address] GAP 12 Normal 5-15 [facility] Comment on above: Performed By: #### L 100.0100, L500.2500 ####[facility] [address] [place], [address] GFR/1.73 sq M.predicted among non-blacks MDRD (S/P/Bld) [Vol rate/Area] 79 mL/min/{1.73_m2} Normal >60 [facility] Comment on above: Result Comment: mL/m in/1.73m2 CKD-EPI Creatinine Equation (2020) Performed By: #### L 100.0100, L500.2500 ####[facility] [address] [place], [address] Glucose [Mass/Vol] 102 mg/dL High 70-99 [facility] Comment on above: Performed By: #### L 100.0100, L500.2500 ####[facility] [address] [place], [address] Potassium [Moles/Vol] 4.4 mmol/L Normal 3.3-5.1 [facility] Comment on above: Performed By: #### L 100.0100, L500.2500 ####[facility] [address] [place], [address] Sodium [Moles/Vol] 131 mmol/L Low 133-145 [facility] Comment on above: Performed By: #### L 100.0100, L500.2500 ####[facility] [address] [place], [address] Urea nitrogen [Mass/Vol] 12 mg/dL Normal 4-19 [facility] Comment on above: Performed By: #### L 100.0100, L500.2500 ####[facility] [address] [place], [address] Basophil percentageOrdered B y: Malinda Webster on 01-08-2025 Basophils/100 WBC (Bld) 0.2 % 0- [facility] CBC W/Diff, Automatedon 12-30 Absolute Lymph 0.70 X10 3/uL Low 0.83-4.51 [facility] Comment on above: Performed By: #### L 100.0100, L500.2500 ####[facility] [address] [place], [address] Absolute Neut 4.3 X10 3/uL Normal 2.0-7.7 [facility] Comment on above: Performed By: #### L 100.0100, L500.2500 ####[facility] [address] [place], [address] Basophils/100 WBC (Bld) 0.2 % Normal 0-1 [facility] Comment on above: Performed By: #### L 100.0100, L500.2500 ####[facility] [address] [place], [address] Eosinophils/100 WBC (Bld) 1.2 % Normal 0-5 [facility] Comment on above: Performed By: #### L 100.0100, L500.2500 ####[facility] [address] [place], [address] Erythrocyte distribution width (RBC) [Ratio] 12.7 % Normal 11.6-14.6 [facility] Comment on above: Performed By: #### L 100.0100, L500.2500 ####[facility] [address] [place], [address] Hematocrit (Bld) [Volume fraction] 32.6 % Low 40-54 [facility] Comment on above: Performed By: #### L 100.0100, L500.2500 ####[facility] [address] [place], [address] Hemoglobin (Bld) [Mass/Vol] 10.9 g/dL Low 13.0-16.5 [facility] Comment on above: Performed By: #### L 100.0100, L500.2500 ####[facility] [address] [place], [address] IG% 0.200 Normal 0.0-0.9 [facility] Comment on above: Result Comment: IG% - Immature Granulocytes (promyelocytes, myelocytes andmetamyelocytes) > 1% indicates that a LEFT SHIFT is Present. Performed By: #### L 100.0100, L500.2500 ####[facility] [address] [place], [address] Lymphocytes/100 WBC (Bld) 12.0 % Low 19-41 [facility] Comment on above: Performed By: #### L 100.0100, L500.2500 ####[facility] [address] [place], [address] MCH (RBC) [Entitic mass] 29.1 pg Normal 27.0-32.0 [facility] Comment on above: Performed By: #### L 100.0100, L500.2500 ####[facility] [address] [place], [address] MCHC (RBC) [Mass/Vol] 33.4 g/dL Normal 32-36 [facility] Comment on above: Performed By: #### L 100.0100, L500.2500 ####[facility] [address] [place], [address] MCV (RBC) [Entitic vol] 86.9 fL Normal 80-94 [facility] Comment on above: Performed By: #### L 100.0100, L500.2500 ####[facility] [address] [place], [address] Monocytes/100 WBC (Bld) 11.9 % High 0-10 [facility] Comment on above: Performed By: #### L 100.0100, L500.2500 ####[facility] [address] [place], [address] Neutrophils/100 WBC (Bld) 74.5 % High 47-70 [facility] Comment on above: Performed By: #### L 100.0100, L500.2500 ####[facility] [address] [place], [address] Nucleated RBC (Bld) [#/Vol] 0 10*3/uL Normal 0-5 [facility] Comment on above: Performed By: #### L 100.0100, L500.2500 ####[facility] [address] [place], [address] Platelet mean volume (Bld) [Entitic vol] 10.1 fL Normal 6.2-12.0 [facility] Comment on above: Performed By: #### L 100.0100, L500.2500 ####[facility] [address] [place], [address] Platelets (Bld) [#/Vol] 243 10*3/uL Normal 150-450 [facility] Comment on above: Performed By: #### L 100.0100, L500.2500 ####[facility] [address] [place], [address] RBC (Bld) [#/Vol] 3.75 10*6/uL Low 4.6-6.2 [facility] Comment on above: Performed By: #### L 100.0100, L500.2500 ####[facility] [address] [place], [address] RDW SD 40.5 fl Normal 35.1-43.9 [facility] Comment on above: Performed By: #### L 100.0100, L500.2500 ####[facility] [address] [place], [address] WBC (Bld) [#/Vol] 5.8 10*3/uL Normal 4.4-11.0 [facility] Comment on above: Performed By: #### L 100.0100, L500.2500 ####[facility] [address] [place], [place], [address] Carbon dioxide, total [Moles /volume] in Central venous bloodOrdered By: Malinda Webster on 01-08-2025 CO2 [Moles/Vol] 23.4 mmol/L 21.0-32.0 [facility] Chloride assayOrdered By: Santa Webster on 01-08-2025 Chloride [Moles/Vol] 96 mmol/L Low 98-108 [facility] Eosinophil percentageOrdered By: Malinda Webster on 01-08-2025 Eosinophils/100 WBC (Bld) 1.2 % 0-5 [facility] Erythrocyte distribution wid th ratioOrdered By: Malinda Webster on 01-08-2025 Erythrocyte distribution width (RBC) [Ratio] 12.7 % 11.6-14.6 [facility] Erythrocyte distribution wid th standard deviationOrdered By: Malinda Webster on 01-08-2025 Erythrocyte distribution width (RBC) [Ratio] 40.5 fl 35.1-43.9 [facility] Glomerular filtration rate ( GFR) estimation/1.73 sq m using serum, plasma, or whole bOrdered By: Malinda Webster on 01-08-2025 GFR/1.73 sq M.predicted among non-blacks MDRD (S/P/Bld) [Vol rate/Area] 79 mL/min/{1.73_m2} >60 [facility] Hematocrit Auto (Bld) [Volum e fraction]Ordered By: Malinda Webster on 01-08-2025 Hematocrit (Bld) [Volume fraction] 32.6 % Low 40-54 [facility] Hemoglobin measurementOrdere d By: Malinda Webster on 01-08-2025 Hemoglobin (Bld) [Mass/Vol] 10.9 g/dL Low 13.0-16.5 [facility] Immature granulocytes/100 WB C Auto (Bld)Ordered By: Malinda Webster on 01-08-2025 Immature granulocytes/100 WBC (Bld) 0.200 % 0.0-0.9 [facility] MCV (mean corpuscular volume ) determinationOrdered By: Malinda Webster 01-08-2025 MCV (RBC) [Entitic vol] 86.9 fL 80-94 [facility] Mean corpuscular hemoglobin (MCH) determinationOrdered By: Malinda Webster on 01-08-2025 MCH (RBC) [Entitic mass] 29.1 pg 27.0-32.0 [facility] Monocyte percentageOrdered B y: Malinda Webster on 01-08-2025 Monocytes/100 WBC (Bld) 11.9 % High 0-10 [facility] Neutrophil percentageOrdered By: Malinda Webster on 01-08-2025 Neutrophils/100 WBC (Bld) 74.5 % High 47-70 [facility] Platelet countOrdered By: Santa Webster on 01-08-2025 Platelets (Bld) [#/Vol] 243 10*3/uL 150-450 [facility] Potassium measurement (mass/ volume)Ordered By: Malinda Webster on 01-08-2025 Potassium (Unsp spec) [Mass/Vol] 4.4 mmol/L 3.3-5.1 [facility] RBC Auto (Bld) [#/Vol]Ordere d By: Malinda Webster on 01-08-2025 RBC (Bld) [#/Vol] 3.75 10*6/uL Low 4.6-6.2 [facility] Serum creatinine measurement (mass/volume)Ordered By: Malinda Webster on 01-08-2025 Creatinine [Mass/Vol] 0.97 mg/dL 0.70-1.20 [facility] Serum glucose measurement (m ass/volume)Ordered By: Malinda Webster on 01-08-2025 Glucose [Mass/Vol] 102 mg/dL High 70-99 [facility] Serum or plasma calcium shagufta urement (mass/volume)Ordered By: Malinda Webster on 01-08-2025 Calcium [Mass/Vol] 9.3 mg/dL 7.6-11.0 [facility] Serum or plasma urea nitroge n measurement (mass/volume)Ordered By: Malinda Webster on 01-08-2025 Urea nitrogen [Mass/Vol] 12 mg/dL 4-19 [facility] Sodium levelOrdered By: Malinda Webster on 01-08-2025 Sodium [Moles/Vol] 131 mmol/L Low 133-145 [facility] White blood cell (WBC) count Ordered By: Malinda Webster on 01-08-2025 WBC (Bld) [#/Vol] 5.8 10*3/uL 4.4-11.0 [facility] Carcinoembryonic Antigenon 0 - CEA 47.8 ng/mL High 0.0-4.7 [facility] Comment on above: Order Comment: MALINDA WEBSTER ORDERED CBCD Result Comment: Nons mokers <3.9 Smokers <5.6[employer] Electrochemiluminescence Immunoassay(ECLIA)Values obtained with different assay methods or kitscannot be used interchangeably. Results cannot beinterpreted as absolute evidence of the presence orabsence of malignant disease.Performed at: [facility] [id number] [place], [place] [id number] Director: Jian Paredes PhD, Phone: [phone] Performed By: #### L 100.0100, L503.6550, L503.6030, L3100.2300, L500.4050 ####[facility] [address] [place], [address] Absolute lymphocyte countOrd ered By: [facility] on 12-14-2024 Lymphocytes Auto (Unsp spec) [#/Vol] 0.68 10*3/uL Low 0.83-4.51 [facility] Anion gap in Serum or Plasma Ordered By: Brenda Araujo on 12-14-2024 Anion gap [Moles/Vol] 12 mmol/L 5- [facility] Automated lymphocyte count a s percentage of total leukocytesOrdered By: [facility]li Araujo on 12-14-2024 Lymphocytes/100 WBC Auto (Unsp spec) 9.9 % Low 19-41 [facility] BUN/creatinine ratioOrdered By: [facility] on 12-14-2024 Urea nitrogen/Creatinine [Mass ratio] 11.3 mg/mg 10- [facility] Basophil percentageOrdered B y: Brenda Araujo on 12-14-2024 Basophils/100 WBC (Bld) 0.4 % 0- [facility] Bilirubin, totalOrdered By: [facility]li Araujo on 12-14-2024 Bilirubin [Mass/Vol] 0.51 mg/dL 0.00-1.30 [facility] CBC W/Diff, Automatedon 11-29 Absolute Lymph 0.68 X10 3/uL Low 0.83-4.51 [facility] Comment on above: Order Comment: MALINDA WEBSTER ORDERED CBCD Performed By: #### L 100.0100, L503.6550, L503.6030, L3100.2300, L500.4050 ####[facility] [address] [place], [address] Absolute Neut 5.5 X10 3/uL Normal 2.0-7.7 [facility] Comment on above: Order Comment: MALINDA WEBSTER ORDERED CBCD Performed By: #### L 100.0100, L503.6550, L503.6030, L3100.2300, L500.4050 ####[facility] [address] [place], [address] Basophils/100 WBC (Bld) 0.4 % Normal 0-1 [facility] Comment on above: Order Comment: MALINDA WEBSTER ORDERED CBCD Performed By: #### L 100.0100, L503.6550, L503.6030, L3100.2300, L500.4050 ####[facility] [address] [place], [address] Eosinophils/100 WBC (Bld) 0.4 % Normal 0-5 [facility] Comment on above: Order Comment: MALINDA WEBSTER ORDERED CBCD Performed By: #### L 100.0100, L503.6550, L503.6030, L3100.2300, L500.4050 ####[facility] [address] [place], [address] Erythrocyte distribution width (RBC) [Ratio] 12.8 % Normal 11.6-14.6 [facility] Comment on above: Order Comment: MALINDA WEBSTER ORDERED CBCD Performed By: #### L 100.0100, L503.6550, L503.6030, L3100.2300, L500.4050 ####[facility] [address] [place], [address] Hematocrit (Bld) [Volume fraction] 31.4 % Low 40-54 [facility] Comment on above: Order Comment: MALINDA WEBSTER ORDERED CBCD Performed By: #### L 100.0100, L503.6550, L503.6030, L3100.2300, L500.4050 ####[facility] [address] [place], [address] Hemoglobin (Bld) [Mass/Vol] 10.8 g/dL Low 13.0-16.5 [facility] Comment on above: Order Comment: MALINDA WEBSTER ORDERED CBCD Performed By: #### L 100.0100, L503.6550, L503.6030, L3100.2300, L500.4050 ####[facility] [address] [place], [address] IG% 0.400 Normal 0.0-0.9 [facility] Comment on above: Order Comment: MALINDA WEBSTER ORDERED CBCD Result Comment: IG% - Immature Granulocytes (promyelocytes, myelocytes andmetamyelocytes) > 1% indicates that a LEFT SHIFT is Present. Performed By: #### L 100.0100, L503.6550, L503.6030, L3100.2300, L500.4050 ####[facility] [address] [place], [address] Lymphocytes/100 WBC (Bld) 9.9 % Low 19-41 [facility] Comment on above: Order Comment: MALINDA WEBSTER ORDERED CBCD Performed By: #### L 100.0100, L503.6550, L503.6030, L3100.2300, L500.4050 ####[facility] [address] [place], [address] MCH (RBC) [Entitic mass] 30.6 pg Normal 27.0-32.0 [facility] Comment on above: Order Comment: MALINDA WEBSTER ORDERED CBCD Performed By: #### L 100.0100, L503.6550, L503.6030, L3100.2300, L500.4050 ####[facility] [address] [place], [address] MCHC (RBC) [Mass/Vol] 34.4 g/dL Normal 32-36 [facility] Comment on above: Order Comment: MALINDA WEBSTER ORDERED CBCD Performed By: #### L 100.0100, L503.6550, L503.6030, L3100.2300, L500.4050 ####[facility] [address] [place], [address] MCV (RBC) [Entitic vol] 89.0 fL Normal 80-94 [facility] Comment on above: Order Comment: MALINDA WEBSTER ORDERED CBCD Performed By: #### L 100.0100, L503.6550, L503.6030, L3100.2300, L500.4050 ####[facility] [address] [place], [address] Monocytes/100 WBC (Bld) 8.6 % Normal 0-10 [facility] Comment on above: Order Comment: MALINDA WEBSTER ORDERED CBCD Performed By: #### L 100.0100, L503.6550, L503.6030, L3100.2300, L500.4050 ####[facility] [address] [place], [address] Neutrophils/100 WBC (Bld) 80.3 % High 47-70 [facility] Comment on above: Order Comment: MALINDA WEBSTER ORDERED CBCD Performed By: #### L 100.0100, L503.6550, L503.6030, L3100.2300, L500.4050 ####[facility] [address] [place], [address] Nucleated RBC (Bld) [#/Vol] 0 10*3/uL Normal 0-5 [facility] Comment on above: Order Comment: MALINDA WEBSTER ORDERED CBCD Performed By: #### L 100.0100, L503.6550, L503.6030, L3100.2300, L500.4050 ####[facility] [address] [place], [address] Platelet mean volume (Bld) [Entitic vol] 9.6 fL Normal 6.2-12.0 [facility] Comment on above: Order Comment: MALINDA WEBSTER ORDERED CBCD Performed By: #### L 100.0100, L503.6550, L503.6030, L3100.2300, L500.4050 ####[facility] [address] [place], [address] Platelets (Bld) [#/Vol] 312 10*3/uL Normal 150-450 [facility] Comment on above: Order Comment: MALINDA WEBSTER ORDERED CBCD Performed By: #### L 100.0100, L503.6550, L503.6030, L3100.2300, L500.4050 ####[facility] [address] [place], [address] RBC (Bld) [#/Vol] 3.53 10*6/uL Low 4.6-6.2 [facility] Comment on above: Order Comment: MALINDA WEBSTER ORDERED CBCD Performed By: #### L 100.0100, L503.6550, L503.6030, L3100.2300, L500.4050 ####[facility] [address] [place], [address] RDW SD 41.6 fl Normal 35.1-43.9 [facility] Comment on above: Order Comment: MALINDA WEBSTER ORDERED CBCD Performed By: #### L 100.0100, L503.6550, L503.6030, L3100.2300, L500.4050 ####[facility] [address] [place], [address] WBC (Bld) [#/Vol] 6.9 10*3/uL Normal 4.4-11.0 [facility] Comment on above: Order Comment: MALINDA WEBSTER ORDERED CBCD Performed By: #### L 100.0100, L503.6550, L503.6030, L3100.2300, L500.4050 ####[facility] [address] [place], [address] Absolute Neut Normal 2.0-7.7 [facility] Comment on above: Result Comment: CBCD ORDER ON OTHER REQ Performed By: #### L 100.0100 ####[facility] [address] [place], [address] HCT Normal 40-54 [facility] Comment on above: Result Comment: CBCD ORDER ON OTHER REQ Performed By: #### L 100.0100 ####[facility] [address] [place], [address] HGB Normal 13.0-16.5 [facility] Comment on above: Result Comment: CBCD ORDER ON OTHER REQ Performed By: #### L 100.0100 ####[facility] [address] [place], [address] MCH Normal 27.0-32.0 [facility] Comment on above: Result Comment: CBCD ORDER ON OTHER REQ Performed By: #### L 100.0100 ####[facility] [address] [place], [address] MCHC Normal 32-36 [facility] Comment on above: Result Comment: CBCD ORDER ON OTHER REQ Performed By: #### L 100.0100 ####[facility] [address] [place], [address] MCV Normal 80-94 [facility] Comment on above: Result Comment: CBCD ORDER ON OTHER REQ Performed By: #### L 100.0100 ####[facility] [address] [place], [address] NEUT% Normal 47-70 [facility] Comment on above: Result Comment: CBCD ORDER ON OTHER REQ Performed By: #### L 100.0100 ####[facility] [address] [place], [address] PLT Normal 150-450 [facility] Comment on above: Result Comment: CBCD ORDER ON OTHER REQ Performed By: #### L 100.0100 ####[facility] [address] [place], [address] RBC Normal 4.6-6.2 [facility] Comment on above: Result Comment: CBCD ORDER ON OTHER REQ Performed By: #### L 100.0100 ####[facility] [address] [place], [address] RDW CV Normal 11.6-14.6 [facility] Comment on above: Result Comment: CBCD ORDER ON OTHER REQ Performed By: #### L 100.0100 ####[facility] [address] [place], [address] RDW SD Normal 35.1-43.9 [facility] Comment on above: Result Comment: CBCD ORDER ON OTHER REQ Performed By: #### L 100.0100 ####[facility] [address] [place], [address] WBC Normal 4.4-11.0 [facility] Comment on above: Result Comment: CBCD ORDER ON OTHER REQ Performed By: #### L 100.0100 ####[facility] [address] [place], [address] Carbon dioxide, total [Moles /volume] in Central venous bloodOrdered By: Brenda Araujo on 12-14-2024 CO2 [Moles/Vol] 23.4 mmol/L 21.0-32.0 [facility] Chest PA and Lateralon 12-14 Chest PA and Lateral Normal [facility] Chloride assayOrdered By: Kalen Araujo on 12-14-2024 Chloride [Moles/Vol] 97 mmol/L Low 98-108 [facility] Comprehensive Metabolic Prof ilon 12-14-2024 Albumin [Mass/Vol] 4.2 g/dL Normal 3.4-4.8 [facility] Comment on above: Order Comment: MALINDA WEBSTER ORDERED CBCD Performed By: #### L 100.0100, L503.6550, L503.6030, L3100.2300, L500.4050 ####[facility] [address] [place], [address] Albumin/Globulin [Mass ratio] 1.4 {ratio} Normal 0.9-2.4 [facility] Comment on above: Order Comment: MALINDA WEBSTER ORDERED CBCD Performed By: #### L 100.0100, L503.6550, L503.6030, L3100.2300, L500.4050 ####[facility] [address] [place], [address] ALK PHOS 116 U/L Normal 40-129 [facility] Comment on above: Order Comment: MALINDA WEBSTER ORDERED CBCD Performed By: #### L 100.0100, L503.6550, L503.6030, L3100.2300, L500.4050 ####[facility] [address] [place], [address] ALT [Catalytic activity/Vol] 11 U/L Normal <=46 [facility] Comment on above: Order Comment: MALINDA WEBSTER ORDERED CBCD Performed By: #### L 100.0100, L503.6550, L503.6030, L3100.2300, L500.4050 ####[facility] [address] [place], [address] AST [Catalytic activity/Vol] 24 U/L Normal <=37 [facility] Comment on above: Order Comment: MALINDA WEBSTER ORDERED CBCD Performed By: #### L 100.0100, L503.6550, L503.6030, L3100.2300, L500.4050 ####[facility] [address] [place], [address] Bilirubin [Mass/Vol] 0.51 mg/dL Normal 0.00-1.30 [facility] Comment on above: Order Comment: MALINDA WEBSTER ORDERED CBCD Performed By: #### L 100.0100, L503.6550, L503.6030, L3100.2300, L500.4050 ####[facility] [address] [place], [address] BUN/CRE 11.3 RATIO Normal 10-20 [facility] Comment on above: Order Comment: MALINDA WEBSTER ORDERED CBCD Performed By: #### L 100.0100, L503.6550, L503.6030, L3100.2300, L500.4050 ####[facility] [address] [place], [address] Calcium [Mass/Vol] 9.3 mg/dL Normal 7.6-11.0 [facility] Comment on above: Order Comment: MALINDA WEBSTER ORDERED CBCD Performed By: #### L 100.0100, L503.6550, L503.6030, L3100.2300, L500.4050 ####[facility] [address] [place], [address] Chloride [Moles/Vol] 97 mmol/L Low 98-108 [facility] Comment on above: Order Comment: MALINDA WEBSTER ORDERED CBCD Performed By: #### L 100.0100, L503.6550, L503.6030, L3100.2300, L500.4050 ####[facility] [address] [place], [address] CO2 [Moles/Vol] 23.4 mmol/L Normal 21.0-32.0 [facility] Comment on above: Order Comment: MALINDA WEBSTER ORDERED CBCD Performed By: #### L 100.0100, L503.6550, L503.6030, L3100.2300, L500.4050 ####[facility] [address] [place], [address] Creatinine [Mass/Vol] 1.00 mg/dL Normal 0.70-1.20 [facility] Comment on above: Order Comment: MALINDA WEBSTER ORDERED CBCD Performed By: #### L 100.0100, L503.6550, L503.6030, L3100.2300, L500.4050 ####[facility] [address] [place], [address] GAP 12 Normal 5-15 [facility] Comment on above: Order Comment: MALINDA WEBSTER ORDERED CBCD Performed By: #### L 100.0100, L503.6550, L503.6030, L3100.2300, L500.4050 ####[facility] [address] [place], [address] GFR/1.73 sq M.predicted among non-blacks MDRD (S/P/Bld) [Vol rate/Area] 76 mL/min/{1.73_m2} Normal >60 [facility] Comment on above: Order Comment: MALINDA WEBSTER ORDERED CBCD Result Comment: mL/m in/1.73m2 CKD-EPI Creatinine Equation (2020) Performed By: #### L 100.0100, L503.6550, L503.6030, L3100.2300, L500.4050 ####[facility] [address] [place], [address] Globulin (S) [Mass/Vol] 3.0 g/dL Normal 2.2-4.2 [facility] Comment on above: Order Comment: MALINDA WEBSTER ORDERED CBCD Performed By: #### L 100.0100, L503.6550, L503.6030, L3100.2300, L500.4050 ####[facility] [address] [place], [address] Glucose [Mass/Vol] 106 mg/dL High 70-99 [facility] Comment on above: Order Comment: MALINDA WEBSTER ORDERED CBCD Performed By: #### L 100.0100, L503.6550, L503.6030, L3100.2300, L500.4050 ####[facility] [address] [place], [address] Potassium [Moles/Vol] 3.8 mmol/L Normal 3.3-5.1 [facility] Comment on above: Order Comment: MALINDA WEBSTER ORDERED CBCD Performed By: #### L 100.0100, L503.6550, L503.6030, L3100.2300, L500.4050 ####[facility] [address] [place], [address] Sodium [Moles/Vol] 133 mmol/L Normal 133-145 [facility] Comment on above: Order Comment: MALINDA WEBSTER ORDERED CBCD Performed By: #### L 100.0100, L503.6550, L503.6030, L3100.2300, L500.4050 ####[facility] [address] [place], [address] T PROT 7.3 g/dL Normal 5.9-8.4 [facility] Comment on above: Order Comment: MALINDA WEBSTER ORDERED CBCD Performed By: #### L 100.0100, L503.6550, L503.6030, L3100.2300, L500.4050 ####[facility] [address] [place], [address] Urea nitrogen [Mass/Vol] 11 mg/dL Normal 4-19 [facility] Comment on above: Order Comment: MALINDA WEBSTER ORDERED CBCD Performed By: #### L 100.0100, L503.6550, L503.6030, L3100.2300, L500.4050 ####[facility] [address] [place], [address] Eosinophil percentageOrdered By: Brenda Araujo on 12-14-2024 Eosinophils/100 WBC (Bld) 0.4 % 0-5 [facility] Erythrocyte distribution wid th ratioOrdered By: Brenda Araujo on 12-14-2024 Erythrocyte distribution width (RBC) [Ratio] 12.8 % 11.6-14.6 [facility] Erythrocyte distribution wid th standard deviationOrdered By: Brenda Araujo on 12-14-2024 Erythrocyte distribution width (RBC) [Ratio] 41.6 fl 35.1-43.9 [facility] Ferritinon 12-14-2024 Ferritin [Mass/Vol] 49 ng/mL Normal 37-417 [facility] Comment on above: Order Comment: MALINDA WEBSTER ORDERED CBCD Performed By: #### L 100.0100, L503.6550, L503.6030, L3100.2300, L500.4050 ####[facility] [address] [place], [address] Glomerular filtration rate ( GFR) estimation/1.73 sq m using serum, plasma, or whole bOrdered By: Brenda Araujo on 12-14-2024 GFR/1.73 sq M.predicted among non-blacks MDRD (S/P/Bld) [Vol rate/Area] 76 mL/min/{1.73_m2} >60 [facility] Hematocrit Auto (Bld) [Volum e fraction]Ordered By: Brenda Araujo on 12-14-2024 Hematocrit (Bld) [Volume fraction] 31.4 % Low 40-54 [facility] Hemoglobin measurementOrdere d By: Brenda Araujo on 12-14-2024 Hemoglobin (Bld) [Mass/Vol] 10.8 g/dL Low 13.0-16.5 [facility] Immature granulocytes/100 WB C Auto (Bld)Ordered By: Brenda Araujo on 12-14-2024 Immature granulocytes/100 WBC (Bld) 0.400 % 0.0-0.9 [facility] Iron measurement (mass/mass) Ordered By: Brenda Araujo on 12-14-2024 Iron (Unsp spec) [Mass/Mass] 24 ug/dL Low 65-175 [facility] Iron+Iron Binding Capacityon 12-14-2024 Iron [Mass/Vol] 24 ug/dL Low 65-175 [facility] Comment on above: Order Comment: MALINDA WEBSTER ORDERED CBCD Performed By: #### L 100.0100, L503.6550, L503.6030, L3100.2300, L500.4050 ####[facility] [address] [place], [address] IRON SATURATION 8.0 Low 9-55 [facility] Comment on above: Order Comment: MALINDA WEBSTER ORDERED CBCD Performed By: #### L 100.0100, L503.6550, L503.6030, L3100.2300, L500.4050 ####[facility] [address] [place], [address] TIBC 314 ug/dL Normal 250-450 [facility] Comment on above: Order Comment: MALINDA WEBSTER ORDERED CBCD Performed By: #### L 100.0100, L503.6550, L503.6030, L3100.2300, L500.4050 ####[facility] [address] [place], [address] UIBC 290 ug/dL Normal 228-428 [facility] Comment on above: Order Comment: MALINDA WEBSTER ORDERED CBCD Performed By: #### L 100.0100, L503.6550, L503.6030, L3100.2300, L500.4050 ####[facility] [address] [place], [address] MCV (mean corpuscular volume ) determinationOrdered By: Brenda Araujo on 12-14-2024 MCV (RBC) [Entitic vol] 89.0 fL 80-94 [facility] Mean corpuscular hemoglobin (MCH) determinationOrdered By: Brenda Araujo on 12-14-2024 MCH (RBC) [Entitic mass] 30.6 pg 27.0-32.0 [facility] Monocyte percentageOrdered B y: Brenda Araujo on 12-14-2024 Monocytes/100 WBC (Bld) 8.6 % 0-10 [facility] Neutrophil percentageOrdered By: Brenda Araujo on 12-14-2024 Neutrophils/100 WBC (Bld) 80.3 % High 47-70 [facility] No Panel InformationOrdered By: Brenda Araujo on 12-14-2024 24 U/L <38 [facility] 290 ug/dL 228-428 [facility] Platelet countOrdered By: Kalen Araujo on 12-14-2024 Platelets (Bld) [#/Vol] 312 10*3/uL 150-450 [facility] Potassium measurement (mass/ volume)Ordered By: Brenda Araujo on 12-14-2024 Potassium (Unsp spec) [Mass/Vol] 3.8 mmol/L 3.3-5.1 [facility] RBC Auto (Bld) [#/Vol]Ordere d By: Brenda Araujo on 12-14-2024 RBC (Bld) [#/Vol] 3.53 10*6/uL Low 4.6-6.2 [facility] Serum creatinine measurement (mass/volume)Ordered By: Brenda Araujo on 12-14-2024 Creatinine [Mass/Vol] 1.00 mg/dL 0.70-1.20 [facility] Serum globulin measurementOr dered By: Brenda Araujo on 12-14-2024 Globulin (S) [Mass/Vol] 3.0 g/dL 2.2-4.2 [facility] Serum glucose measurement (m ass/volume)Ordered By: Brenda Araujo on 12-14-2024 Glucose [Mass/Vol] 106 mg/dL High 70-99 [facility] Serum or plasma alanine carrion otransferase (ALT) measurementOrdered By: Brenda Araujo on 12-14-2024 ALT [Catalytic activity/Vol] 11 U/L <47 [facility] Serum or plasma albumin shagufta urement (mass/volume)Ordered By: Brenda Araujo on 12-14-2024 Albumin [Mass/Vol] 4.2 g/dL 3.4-4.8 [facility] [facility] Serum or plasma albumin/glob ulin mass ratioOrdered By: Brenda Araujo on 12-14-2024 Albumin/Globulin [Mass ratio] 1.4 {ratio} 0.9-2.4 [facility] Serum or plasma alkaline airam sphatase measurementOrdered By: Brenda Araujo on 12-14-2024 ALP [Catalytic activity/Vol] 116 U/L 40-129 [facility] Serum or plasma calcium shagufta urement (mass/volume)Ordered By: Brenda Araujo on 12-14-2024 Calcium [Mass/Vol] 9.3 mg/dL 7.6-11.0 [facility] Serum or plasma carcinoembry onic antigen measurement (mass/volume)Ordered By: Brenda Araujo on 12-14-2024 Carcinoembryonic Ag [Mass/Vol] 47.8 ng/mL High 0.0-4.7 [facility] Serum or plasma ferritin francy surement (mass/volume)Ordered By: Brenda Araujo on 12-14-2024 Ferritin [Mass/Vol] 49 ng/mL 37-417 [facility] Serum or plasma iron saturat ion measurement (mass fraction)Ordered By: Brenda Araujo on 12-14-2024 Iron saturation [Mass fraction] 8.0 % Low 9-55 [facility] Serum or plasma urea nitroge n measurement (mass/volume)Ordered By: Brenda Araujo on 12-14-2024 Urea nitrogen [Mass/Vol] 11 mg/dL 4-19 [facility] Sodium levelOrdered By: Tha Araujo on 12-14-2024 Sodium [Moles/Vol] 133 mmol/L 133-145 [facility] Total proteinOrdered By: Rahul Araujo on 12-14-2024 Protein [Mass/Vol] 7.3 g/dL 5.9-8.4 [facility] White blood cell (WBC) count Ordered By: Brenda Araujo on 12-14-2024 WBC (Bld) [#/Vol] 6.9 10*3/uL 4.4-11.0 [facility] Surgical pathology reportOrd ered By: Teresa Martel on 12-06-2024 Surgical pathology study [facility] Absolute lymphocyte countOrd ered By: Darrel Watts on 12-05-2024 Lymphocytes Auto (Unsp spec) [#/Vol] 0.91 10*3/uL 0.83-4.51 [facility] Absolute neutrophil countOrd ered By: Darrel Watts on 12-05-2024 Neutrophils (Bld) [#/Vol] 5.6 10*3/uL 2.0-7.7 [facility] Activated partial thrombopla stin time (aPTT) in platelet poor plasma by coagulation aOrdered By: Darrel Watts on 12-05-2024 aPTT Coag (PPP) [Time] 34.0 s 24.1-36.2 [facility] Automated lymphocyte count a s percentage of total leukocytesOrdered By: Darrel Watts on 12-05-2024 Lymphocytes/100 WBC Auto (Unsp spec) 12.1 % Low 19-41 [facility] Basophil percentageOrdered B y: Darrel Watts on 12-05-2024 Basophils/100 WBC (Bld) 0.3 % 0-1 [facility] Biopsy/Inj or Needle Placeme nton 12-05-2024 Biopsy/Inj or Needle Placement Normal [facility] CBC W/Diff, Automatedon Absolute Lymph 0.91 X10 3/uL Normal 0.83-4.51 [facility] Comment on above: Performed By: #### L 300.4310, L300.3900, L100.0100 ####[facility] [address] [place], [address] Absolute Neut 5.6 X10 3/uL Normal 2.0-7.7 [facility] Comment on above: Performed By: #### L 300.4310, L300.3900, L100.0100 ####[facility] [address] [place], [address] Basophils/100 WBC (Bld) 0.3 % Normal 0-1 [facility] Comment on above: Performed By: #### L 300.4310, L300.3900, L100.0100 ####[facility] [address] [place], [address] Eosinophils/100 WBC (Bld) 2.3 % Normal 0-5 [facility] Comment on above: Performed By: #### L 300.4310, L300.3900, L100.0100 ####[facility] [address] [place], [address] Erythrocyte distribution width (RBC) [Ratio] 12.7 % Normal 11.6-14.6 [facility] Comment on above: Performed By: #### L 300.4310, L300.3900, L100.0100 ####[facility] [address] [place], [address] Hematocrit (Bld) [Volume fraction] 29.2 % Low 40-54 [facility] Comment on above: Performed By: #### L 300.4310, L300.3900, L100.0100 ####[facility] [address] [place], [address] Hemoglobin (Bld) [Mass/Vol] 10.0 g/dL Low 13.0-16.5 [facility] Comment on above: Performed By: #### L 300.4310, L300.3900, L100.0100 ####[facility] [address] [place], [address] IG% 0.300 Normal 0.0-0.9 [facility] Comment on above: Result Comment: IG% - Immature Granulocytes (promyelocytes, myelocytes andmetamyelocytes) > 1% indicates that a LEFT SHIFT is Present. Performed By: #### L 300.4310, L300.3900, L100.0100 ####[facility] [address] [place], [address] Lymphocytes/100 WBC (Bld) 12.1 % Low 19-41 [facility] Comment on above: Performed By: #### L 300.4310, L300.3900, L100.0100 ####[facility] [address] [place], [address] MCH (RBC) [Entitic mass] 30.4 pg Normal 27.0-32.0 [facility] Comment on above: Performed By: #### L 300.4310, L300.3900, L100.0100 ####[facility] [address] [place], [address] MCHC (RBC) [Mass/Vol] 34.2 g/dL Normal 32-36 [facility] Comment on above: Performed By: #### L 300.4310, L300.3900, L100.0100 ####[facility] [address] [place], [address] MCV (RBC) [Entitic vol] 88.8 fL Normal 80-94 [facility] Comment on above: Performed By: #### L 300.4310, L300.3900, L100.0100 ####[facility] [address] [place], [address] Monocytes/100 WBC (Bld) 10.8 % High 0-10 [facility] Comment on above: Performed By: #### L 300.4310, L300.3900, L100.0100 ####[facility] [address] [place], [address] Neutrophils/100 WBC (Bld) 74.2 % High 47-70 [facility] Comment on above: Performed By: #### L 300.4310, L300.3900, L100.0100 ####[facility] [address] [place], [address] Nucleated RBC (Bld) [#/Vol] 0 10*3/uL Normal 0-5 [facility] Comment on above: Performed By: #### L 300.4310, L300.3900, L100.0100 ####[facility] [address] [place], [address] Platelet mean volume (Bld) [Entitic vol] 8.8 fL Normal 6.2-12.0 [facility] Comment on above: Performed By: #### L 300.4310, L300.3900, L100.0100 ####[facility] [address] [place], [address] Platelets (Bld) [#/Vol] 334 10*3/uL Normal 150-450 [facility] Comment on above: Performed By: #### L 300.4310, L300.3900, L100.0100 ####[facility] [address] [place], [address] RBC (Bld) [#/Vol] 3.29 10*6/uL Low 4.6-6.2 [facility] Comment on above: Performed By: #### L 300.4310, L300.3900, L100.0100 ####[facility] [address] [place], [address] RDW SD 41.4 fl Normal 35.1-43.9 [facility] Comment on above: Performed By: #### L 300.4310, L300.3900, L100.0100 ####[facility] [address] [place], [address] WBC (Bld) [#/Vol] 7.5 10*3/uL Normal 4.4-11.0 [facility] Comment on above: Performed By: #### L 300.4310, L300.3900, L100.0100 ####[facility] [address] [place], [address] Eosinophil percentageOrdered By: Darrel Watts on 12-05-2024 Eosinophils/100 WBC (Bld) 2.3 % 0-5 [facility] Erythrocyte distribution wid th ratioOrdered By: Darrel Watts on 12-05-2024 Erythrocyte distribution width (RBC) [Ratio] 12.7 % 11.6-14.6 [facility] Erythrocyte distribution wid th standard deviationOrdered By: Darrel Watts on 12-05-2024 Erythrocyte distribution width (RBC) [Ratio] 41.4 fl 35.1-43.9 [facility] Hematocrit Auto (Bld) [Volum e fraction]Ordered By: Darrel Watts on 12-05-2024 Hematocrit (Bld) [Volume fraction] 29.2 % Low 40-54 [facility] Hemoglobin measurementOrdere d By: Darrel Watts on 12-05-2024 Hemoglobin (Bld) [Mass/Vol] 10.0 g/dL Low 13.0-16.5 [facility] Immature granulocytes/100 WB C Auto (Bld)Ordered By: Darrel Watts on 12-05-2024 Immature granulocytes/100 WBC (Bld) 0.300 % 0.0-0.9 [facility] Comment on above: IG% - Immature Granu locytes (promyelocytes, myelocytes and metamyelocytes) > 1% indicates that a LEFT SHIFT is Present. Immunohistochemical Stainson 12-05-2024 Immunohistochemical Stains Normal [facility] Comment on above: Performed By: #### P IMMD ####[facility] [address] [place], [address] International normalized rat io (INR) calculationOrdered By: Darrel Watts on 12-05-2024 INR Coag (Bld) [Relative time] 1.1 {INR} [facility] MCV (mean corpuscular volume ) determinationOrdered By: Darrel Watts on 12-05-2024 MCV (RBC) [Entitic vol] 88.8 fL 80-94 [facility] Mean corpuscular hemoglobin (MCH) determinationOrdered By: Darrel Watts on 12-05-2024 MCH (RBC) [Entitic mass] 30.4 pg 27.0-32.0 [facility] Mean corpuscular hemoglobin concentration (MCHC) determinationOrdered By: Darrel Watts on 12-05-2024 MCHC (RBC) [Mass/Vol] 34.2 g/dL 32-36 [facility] Mean platelet volume determi nationOrdered By: Darrel Watts on 12-05-2024 Platelet mean volume (Bld) [Entitic vol] 8.8 fL 6.2-12.0 [facility] Monocyte percentageOrdered B y: Darrel Watts on 12-05-2024 Monocytes/100 WBC (Bld) 10.8 % High 0-10 [facility] Neutrophil percentageOrdered By: Darrel Watts on 12-05-2024 Neutrophils/100 WBC (Bld) 74.2 % High 47-70 [facility] Nucleated red blood cell per centageOrdered By: Darrel Watts on 12-05-2024 Nucleated RBC/100 WBC (Bld) [Ratio] 0 % 0-5 [facility] Partial Thromboplast Timeon 12-05-2024 aPTT Coag (Bld) [Time] 34.0 s Normal 24.1-36.2 [facility] Comment on above: Performed By: #### L 300.4310, L300.3900, L100.0100 ####[facility] [address] [place], [address] Platelet countOrdered By: Gopi Watts on 12-05-2024 Platelets (Bld) [#/Vol] 334 10*3/uL 150-450 [facility] Prothrombin Time w/INRon INR Coag (PPP) [Relative time] 1.1 {INR} Normal [facility] Comment on above: Performed By: #### L 300.4310, L300.3900, L100.0100 ####[facility] [address] [place], [address] PT Coag (PPP) [Time] 14.0 s Normal 11.7-14.9 [facility] Comment on above: Performed By: #### L 300.4310, L300.3900, L100.0100 ####[facility] [address] [place], [address] Prothrombin timeOrdered By: Darrel Watts on 12-05-2024 PT Coag (PPP) [Time] 14.0 s 11.7-14.9 [facility] RBC Auto (Bld) [#/Vol]Ordere d By: Darrel Watts on 12-05-2024 RBC (Bld) [#/Vol] 3.29 10*6/uL Low 4.6-6.2 [facility] White blood cell (WBC) count Ordered By: Darrel Watts on 12-05-2024 WBC (Bld) [#/Vol] 7.5 10*3/uL 4.4-11.0 [facility] Gastroenterology Visit Repor ton 12-04-2024 Gastroenterology Visit Report Normal [facility] Chest WITH Contraston 2024 Chest WITH Contrast Normal [facility] Echo Complete W/ Contraston 11-28-2024 Echo Complete W/ Contrast Normal [facility] Oncology Visit Reporton 11-01 Oncology Visit Report Normal [facility] Absolute lymphocyte countOrd ered By: Neville Jang on 11-20-2024 Lymphocytes Auto (Unsp spec) [#/Vol] 1.21 10*3/uL 0.83-4.51 [facility] Absolute neutrophil countOrd ered By: Neville Jang on 11-20-2024 Neutrophils (Bld) [#/Vol] 7.6 10*3/uL 2.0-7.7 [facility] Automated lymphocyte count a s percentage of total leukocytesOrdered By: Neville Jang on 11-20-2024 Lymphocytes/100 WBC Auto (Unsp spec) 12.0 % Low 19-41 [facility] Basophil percentageOrdered B y: Neville Jang on 11-20-2024 Basophils/100 WBC (Bld) 0.3 % 0-1 [facility] CBC W/Diff, Automatedon 10-31 Absolute Lymph 1.21 X10 3/uL Normal 0.83-4.51 [facility] Comment on above: Performed By: #### L 100.0100 ####[facility] [address] [place], [address] Absolute Neut 7.6 X10 3/uL Normal 2.0-7.7 [facility] Comment on above: Performed By: #### L 100.0100 ####[facility] [address] [place], [address] Basophils/100 WBC (Bld) 0.3 % Normal 0-1 [facility] Comment on above: Performed By: #### L 100.0100 ####[facility] [address] [place], [address] Eosinophils/100 WBC (Bld) 1.7 % Normal 0-5 [facility] Comment on above: Performed By: #### L 100.0100 ####[facility] [address] [place], [address] Erythrocyte distribution width (RBC) [Ratio] 12.6 % Normal 11.6-14.6 [facility] Comment on above: Performed By: #### L 100.0100 ####[facility] [address] [place], [address] Hematocrit (Bld) [Volume fraction] 29.4 % Low 40-54 [facility] Comment on above: Performed By: #### L 100.0100 ####[facility] [address] [place], [address] Hemoglobin (Bld) [Mass/Vol] 10.3 g/dL Low 13.0-16.5 [facility] Comment on above: Performed By: #### L 100.0100 ####[facility] [address] [place], [address] IG% 0.300 Normal 0.0-0.9 [facility] Comment on above: Result Comment: IG% - Immature Granulocytes (promyelocytes, myelocytes andmetamyelocytes) > 1% indicates that a LEFT SHIFT is Present. Performed By: #### L 100.0100 ####[facility] [address] [place], [address] Lymphocytes/100 WBC (Bld) 12.0 % Low 19-41 [facility] Comment on above: Performed By: #### L 100.0100 ####[facility] [address] [place], [address] MCH (RBC) [Entitic mass] 30.8 pg Normal 27.0-32.0 [facility] Comment on above: Performed By: #### L 100.0100 ####[facility] [address] [place], [address] MCHC (RBC) [Mass/Vol] 35.0 g/dL Normal 32-36 [facility] Comment on above: Performed By: #### L 100.0100 ####[facility] [address] [place], [address] MCV (RBC) [Entitic vol] 88.0 fL Normal 80-94 [facility] Comment on above: Performed By: #### L 100.0100 ####[facility] [address] [place], [address] Monocytes/100 WBC (Bld) 10.2 % High 0-10 [facility] Comment on above: Performed By: #### L 100.0100 ####[facility] [address] [place], [address] Neutrophils/100 WBC (Bld) 75.5 % High 47-70 [facility] Comment on above: Performed By: #### L 100.0100 ####[facility] [address] [place], [address] Nucleated RBC (Bld) [#/Vol] 0 10*3/uL Normal 0-5 [facility] Comment on above: Performed By: #### L 100.0100 ####[facility] [address] [place], [address] Platelet mean volume (Bld) [Entitic vol] 8.7 fL Normal 6.2-12.0 [facility] Comment on above: Performed By: #### L 100.0100 ####[facility] [address] [place], [address] Platelets (Bld) [#/Vol] 314 10*3/uL Normal 150-450 [facility] Comment on above: Performed By: #### L 100.0100 ####[facility] [address] [place], [address] RBC (Bld) [#/Vol] 3.34 10*6/uL Low 4.6-6.2 [facility] Comment on above: Performed By: #### L 100.0100 ####[facility] [address] [place], [address] RDW SD 40.2 fl Normal 35.1-43.9 [facility] Comment on above: Performed By: #### L 100.0100 ####[facility] [address] [place], [address] WBC (Bld) [#/Vol] 10.1 10*3/uL Normal 4.4-11.0 [facility] Comment on above: Performed By: #### L 100.0100 ####[facility] [address] [place], [address] Colonoscopy Reporton Colonoscopy Report Normal [facility] Discharge Instructionon 10-31 Discharge Instruction Normal [facility] Eosinophil percentageOrdered By: Neville Jang on 11-20-2024 Eosinophils/100 WBC (Bld) 1.7 % 0-5 [facility] Erythrocyte distribution wid th (RBC) [Ratio]Ordered By: Neville Jang on 11-20-2024 Erythrocyte distribution width (RBC) [Entitic vol] 40.2 fL 35.1-43.9 [facility] Erythrocyte distribution wid th ratioOrdered By: Neville Jang on 11-20-2024 Erythrocyte distribution width (RBC) [Ratio] 12.6 % 11.6-14.6 [facility] Erythrocyte distribution wid th standard deviationOrdered By: Neville Jang on 11-20-2024 Erythrocyte distribution width (RBC) [Ratio] 40.2 fl 35.1-43.9 [facility] Hematocrit Auto (Bld) [Volum e fraction]Ordered By: Neville Jang on 11-20-2024 Hematocrit (Bld) [Volume fraction] 29.4 % Low 40-54 [facility] Hemoglobin measurementOrdere d By: Neville Jang on 11-20-2024 Hemoglobin (Bld) [Mass/Vol] 10.3 g/dL Low 13.0-16.5 [facility] Immature granulocytes/100 WB C Auto (Bld)Ordered By: Neville Jang on 11-20-2024 Immature granulocytes/100 WBC (Bld) 0.300 % 0.0-0.9 [facility] Comment on above: IG% - Immature Granu locytes (promyelocytes, myelocytes and metamyelocytes) > 1% indicates that a LEFT SHIFT is Present. Lymphocytes Auto (Unsp spec) [#/Vol]Ordered By: Neville Jang on 11-20-2024 Lymphocytes (Bld) [#/Vol] 1.21 10*3/uL 0.83-4.51 [facility] Lymphocytes/100 WBC Auto (Un sp spec)Ordered By: Neville Jang on 11-20-2024 Lymphocytes/100 WBC (Bld) 12.0 % Low 19-41 [facility] MCV (mean corpuscular volume ) determinationOrdered By: Neville Jang on 11-20-2024 MCV (RBC) [Entitic vol] 88.0 fL 80-94 [facility] MR/UKXOPFPA9fd 11-20-2024 MR/POSTOPAN2 Normal [facility] Mean corpuscular hemoglobin (MCH) determinationOrdered By: Neville Jang on 11-20-2024 MCH (RBC) [Entitic mass] 30.8 pg 27.0-32.0 [facility] Mean corpuscular hemoglobin concentration (MCHC) determinationOrdered By: Neville Jang on 11-20-2024 MCHC (RBC) [Mass/Vol] 35.0 g/dL 32-36 [facility] Mean platelet volume determi nationOrdered By: Neville Jang on 11-20-2024 Platelet mean volume (Bld) [Entitic vol] 8.7 fL 6.2-12.0 [facility] Monocyte percentageOrdered B y: Neville Jang on 11-20-2024 Monocytes/100 WBC (Bld) 10.2 % High 0-10 [facility] Neutrophil percentageOrdered By: Neville Jang on 11-20-2024 Neutrophils/100 WBC (Bld) 75.5 % High 47-70 [facility] Nucleated red blood cell per centageOrdered By: Neville Jang on 11-20-2024 Nucleated RBC/100 WBC (Bld) [Ratio] 0 % 0-5 [facility] Platelet countOrdered By: Kalen Jang on 11-20-2024 Platelets (Bld) [#/Vol] 314 10*3/uL 150-450 [facility] RBC Auto (Bld) [#/Vol]Ordere d By: Neville Jang on 11-20-2024 RBC (Bld) [#/Vol] 3.34 10*6/uL Low 4.6-6.2 [facility] White blood cell (WBC) count Ordered By: Neville Jang on 11-20-2024 WBC (Bld) [#/Vol] 10.1 10*3/uL 4.4-11.0 [facility] Anion gap in Serum or Plasma Ordered By: Kelvin Schrader on 11-19-2024 Anion gap [Moles/Vol] 12 mmol/L 5-15 [facility] BUN/creatinine ratioOrdered By: Kelvin Schrader on 11-19-2024 Urea nitrogen/Creatinine [Mass ratio] 10.4 mg/mg 10-20 [facility] Basic Metabolic Profile (BMP )on 11-19-2024 BUN/CRE 10.4 RATIO Normal - [facility] Comment on above: Performed By: #### L 100.0100, L500.2500 ####[facility] [address] [place], [address] Calcium [Mass/Vol] 8.8 mg/dL Normal 7.6-11.0 [facility] Comment on above: Performed By: #### L 100.0100, L500.2500 ####[facility] [address] [place], [address] Chloride [Moles/Vol] 99 mmol/L Normal 98-108 [facility] Comment on above: Performed By: #### L 100.0100, L500.2500 ####[facility] [address] [place], [address] CO2 [Moles/Vol] 21.0 mmol/L Normal 21.0-32.0 [facility] Comment on above: Performed By: #### L 100.0100, L500.2500 ####[facility] [address] [place], [address] Creatinine [Mass/Vol] 0.95 mg/dL Normal 0.70-1.20 [facility] Comment on above: Performed By: #### L 100.0100, L500.2500 ####[facility] [address] [place], [address] ECRCL 57.98 ml/min Normal 50-250 [facility] Comment on above: Performed By: #### L 100.0100, L500.2500 ####[facility] [address] [place], [address] GAP 12 Normal 5-15 [facility] Comment on above: Performed By: #### L 100.0100, L500.2500 ####[facility] [address] [place], [address] GFR/1.73 sq M.predicted among non-blacks MDRD (S/P/Bld) [Vol rate/Area] 81 mL/min/{1.73_m2} Normal >60 [facility] Comment on above: Result Comment: mL/m in/1.73m2 CKD-EPI Creatinine Equation (2020) Performed By: #### L 100.0100, L500.2500 ####[facility] [address] [place], [address] Glucose [Mass/Vol] 99 mg/dL Normal 70-99 [facility] Comment on above: Performed By: #### L 100.0100, L500.2500 ####[facility] [address] [place], [address] Potassium [Moles/Vol] 4.0 mmol/L Normal 3.3-5.1 [facility] Comment on above: Performed By: #### L 100.0100, L500.2500 ####[facility] [address] [place], [address] Sodium [Moles/Vol] 132 mmol/L Low 133-145 [facility] Comment on above: Performed By: #### L 100.0100, L500.2500 ####[facility] [address] [place], [address] Urea nitrogen [Mass/Vol] 10 mg/dL Normal 4-19 [facility] Comment on above: Performed By: #### L 100.0100, L500.2500 ####[facility] [address] [place], [address] CBC W/Diff, Automatedon - Absolute Lymph 1.20 X10 3/uL Normal 0.83-4.51 [facility] Comment on above: Performed By: #### L 100.0100, L500.2500 ####[facility] [address] [place], [address] Absolute Neut 6.2 X10 3/uL Normal 2.0-7.7 [facility] Comment on above: Performed By: #### L 100.0100, L500.2500 ####[facility] [address] [place], [address] Basophils/100 WBC (Bld) 0.2 % Normal 0-1 [facility] Comment on above: Performed By: #### L 100.0100, L500.2500 ####[facility] [address] [place], [address] Eosinophils/100 WBC (Bld) 1.9 % Normal 0-5 [facility] Comment on above: Performed By: #### L 100.0100, L500.2500 ####[facility] [address] [place], [address] Erythrocyte distribution width (RBC) [Ratio] 12.5 % Normal 11.6-14.6 [facility] Comment on above: Performed By: #### L 100.0100, L500.2500 ####[facility] [address] [place], [address] Hematocrit (Bld) [Volume fraction] 32.0 % Low 40-54 [facility] Comment on above: Performed By: #### L 100.0100, L500.2500 ####[facility] [address] [place], [address] Hemoglobin (Bld) [Mass/Vol] 10.9 g/dL Low 13.0-16.5 [facility] Comment on above: Performed By: #### L 100.0100, L500.2500 ####[facility] [address] [place], [address] IG% 0.400 Normal 0.0-0.9 [facility] Comment on above: Result Comment: IG% - Immature Granulocytes (promyelocytes, myelocytes andmetamyelocytes) > 1% indicates that a LEFT SHIFT is Present. Performed By: #### L 100.0100, L500.2500 ####[facility] [address] [place], [address] Lymphocytes/100 WBC (Bld) 14.2 % Low 19-41 [facility] Comment on above: Performed By: #### L 100.0100, L500.2500 ####[facility] [address] [place], [address] MCH (RBC) [Entitic mass] 30.4 pg Normal 27.0-32.0 [facility] [facility] Comment on above: Performed By: #### L 100.0100, L500.2500 ####[facility] [address] [place], [address] MCHC (RBC) [Mass/Vol] 34.1 g/dL Normal 32-36 [facility] Comment on above: Performed By: #### L 100.0100, L500.2500 ####[facility] [address] [place], [address] MCV (RBC) [Entitic vol] 89.1 fL Normal 80-94 [facility] Comment on above: Performed By: #### L 100.0100, L500.2500 ####[facility] [address] [place], [address] Monocytes/100 WBC (Bld) 10.0 % Normal 0-10 [facility] Comment on above: Performed By: #### L 100.0100, L500.2500 ####[facility] [address] [place], [address] Neutrophils/100 WBC (Bld) 73.3 % High 47-70 [facility] Comment on above: Performed By: #### L 100.0100, L500.2500 ####[facility] [address] [place], [address] Nucleated RBC (Bld) [#/Vol] 0 10*3/uL Normal 0-5 [facility] Comment on above: Performed By: #### L 100.0100, L500.2500 ####[facility] [address] [place], [address] Platelet mean volume (Bld) [Entitic vol] 9.2 fL Normal 6.2-12.0 [facility] Comment on above: Performed By: #### L 100.0100, L500.2500 ####[facility] [address] [place], [address] Platelets (Bld) [#/Vol] 353 10*3/uL Normal 150-450 [facility] Comment on above: Performed By: #### L 100.0100, L500.2500 ####[facility] [address] [place], [address] RBC (Bld) [#/Vol] 3.59 10*6/uL Low 4.6-6.2 [facility] Comment on above: Performed By: #### L 100.0100, L500.2500 ####[facility] [address] [place], [address] RDW SD 41.0 fl Normal 35.1-43.9 [facility] Comment on above: Performed By: #### L 100.0100, L500.2500 ####[facility] [address] [place], [address] WBC (Bld) [#/Vol] 8.4 10*3/uL Normal 4.4-11.0 [facility] Comment on above: Performed By: #### L 100.0100, L500.2500 ####[facility] [address] [place], [address] Carbon dioxide, total [Moles /volume] in Central venous bloodOrdered By: Kelvin Schrader on 11-19-2024 CO2 [Moles/Vol] 21.0 mmol/L 21.0-32.0 [facility] Chloride assayOrdered By: Marybel Schrader on 11-19-2024 Chloride [Moles/Vol] 99 mmol/L 98-108 [facility] Estimation of creatinine dunia aranceOrdered By: Kelvin Schrader on 11-19-2024 Estimated Creatinine Clearance Calc 57.98 ml/min 50-250 [facility] GFR/1.73 sq M.predicted gregg g non-blacks MDRD (S/P/Bld) [Vol rate/Area]Ordered By: Kelvin Schrader on 11-19-2024 Estimated GFR (MDRD) Non-Af Amer 81 >60 [facility] Comment on above: mL/min/1.73m2 CKD-EP I Creatinine Equation (2020) Glomerular filtration rate ( GFR) estimation/1.73 sq m using serum, plasma, or whole bOrdered By: Kelvin Schrader on 11-19-2024 GFR/1.73 sq M.predicted among non-blacks MDRD (S/P/Bld) [Vol rate/Area] 81 mL/min/{1.73_m2} >60 [facility] Comment on above: mL/min/1.73m2 CKD-EP I Creatinine Equation (2020) MR/CON.PCM.GIon 11-19-2024 MR/CON.PCM.GI Normal [facility] MR/POSTOP.ANEon 11-19-2024 MR/POSTOP.ANE Normal [facility] Potassium (Unsp spec) [Mass/ Vol]Ordered By: Kelvin Schrader on 11-19-2024 Potassium [Moles/Vol] 4.0 mmol/L 3.3-5.1 [facility] Potassium measurement (mass/ volume)Ordered By: Kelvin Schrader on 11-19-2024 Potassium (Unsp spec) [Mass/Vol] 4.0 mmol/L 3.3-5.1 [facility] Serum creatinine measurement (mass/volume)Ordered By: Kelvin Schrader on 11-19-2024 Creatinine [Mass/Vol] 0.95 mg/dL 0.70-1.20 [facility] Serum glucose measurement (m ass/volume)Ordered By: Kelvin Schrader on 11-19-2024 Glucose [Mass/Vol] 99 mg/dL 70-99 [facility] Serum or plasma calcium shagufta urement (mass/volume)Ordered By: Kelvin Schrader on 11-19-2024 Calcium [Mass/Vol] 8.8 mg/dL 7.6-11.0 [facility] Serum or plasma urea nitroge n measurement (mass/volume)Ordered By: Kelvin Schrader on 11-19-2024 Urea nitrogen [Mass/Vol] 10 mg/dL 4-19 [facility] Sodium levelOrdered By: Vernon Schrader on 11-19-2024 Sodium [Moles/Vol] 132 mmol/L Low 133-145 [facility] Abdomen/Pelvis W IV Cont ONL Yon 11-18-2024 Abdomen/Pelvis W IV Cont ONLY Normal [facility] Absolute neutrophil countOrd ered By: Radha Damon on 11-18-2024 Neutrophils (Bld) [#/Vol] 5.7 10*3/uL 2.0-7.7 [facility] Anion gap in Serum or Plasma Ordered By: Radha Damon on 11-18-2024 Anion gap [Moles/Vol] 11 mmol/L 12-13 [facility] BUN/creatinine ratioOrdered By: Radha Damon on 11-18-2024 Urea nitrogen/Creatinine [Mass ratio] 13.7 mg/mg 05-20 [facility] Basic Metabolic Profile (BMP )on 11-18-2024 BUN/CRE 13.7 RATIO Normal 05-20 [facility] Comment on above: Performed By: #### L 500.2500, L100.0100 ####[facility] [address] [place], [address] Calcium [Mass/Vol] 8.9 mg/dL Normal 7.6-11.0 [facility] Comment on above: Performed By: #### L 500.2500, L100.0100 ####[facility] [address] [place], [address] Chloride [Moles/Vol] 95 mmol/L Low 98-108 [facility] Comment on above: Performed By: #### L 500.2500, L100.0100 ####[facility] [address] [place], [address] CO2 [Moles/Vol] 24.0 mmol/L Normal 21.0-32.0 [facility] Comment on above: Performed By: #### L 500.2500, L100.0100 ####[facility] [address] [place], [address] Creatinine [Mass/Vol] 1.02 mg/dL Normal 0.70-1.20 [facility] Comment on above: Performed By: #### L 500.2500, L100.0100 ####[facility] [address] [place], [address] ECRCL 54.00 ml/min Normal 50-250 [facility] Comment on above: Performed By: #### L 500.2500, L100.0100 ####[facility] [address] [place], [address] GAP 11 Normal 5-15 [facility] Comment on above: Performed By: #### L 500.2500, L100.0100 ####[facility] [address] [place], [address] GFR/1.73 sq M.predicted among non-blacks MDRD (S/P/Bld) [Vol rate/Area] 74 mL/min/{1.73_m2} Normal >60 [facility] Comment on above: Result Comment: mL/m in/1.73m2 CKD-EPI Creatinine Equation (2020) Performed By: #### L 500.2500, L100.0100 ####[facility] [address] [place], [address] Glucose [Mass/Vol] 104 mg/dL High 70-99 [facility] Comment on above: Performed By: #### L 500.2500, L100.0100 ####[facility] [address] [place], [address] Potassium [Moles/Vol] 4.1 mmol/L Normal 3.3-5.1 [facility] Comment on above: Performed By: #### L 500.2500, L100.0100 ####[facility] [address] [place], [address] Sodium [Moles/Vol] 130 mmol/L Low 133-145 [facility] Comment on above: Performed By: #### L 500.2500, L100.0100 ####[facility] [address] [place], [address] Urea nitrogen [Mass/Vol] 14 mg/dL Normal 4-19 [facility] Comment on above: Performed By: #### L 500.2500, L100.0100 ####[facility] [address] [place], [address] Basophil percentageOrdered B y: Radha Damon on 11-18-2024 Basophils/100 WBC (Bld) 0.3 % 0-1 [facility] CBC W/Diff, Automatedon 10-31-2024 Absolute Lymph 1.14 X10 3/uL Normal 0.83-4.51 [facility] Comment on above: Performed By: #### L 500.2500, L100.0100 ####[facility] [address] [place], [address] Absolute Neut 5.7 X10 3/uL Normal 2.0-7.7 [facility] Comment on above: Performed By: #### L 500.2500, L100.0100 ####[facility] [address] [place], [address] Basophils/100 WBC (Bld) 0.3 % Normal 0-1 [facility] Comment on above: Performed By: #### L 500.2500, L100.0100 ####[facility] [address] [place], [address] Eosinophils/100 WBC (Bld) 1.8 % Normal 0-5 [facility] Comment on above: Performed By: #### L 500.2500, L100.0100 ####[facility] [address] [place], [address] Erythrocyte distribution width (RBC) [Ratio] 12.4 % Normal 11.6-14.6 [facility] Comment on above: Performed By: #### L 500.2500, L100.0100 ####[facility] [address] [place], [address] Hematocrit (Bld) [Volume fraction] 29.1 % Low 40-54 [facility] Comment on above: Performed By: #### L 500.2500, L100.0100 ####[facility] [address] [place], [address] Hemoglobin (Bld) [Mass/Vol] 10.3 g/dL Low 13.0-16.5 [facility] Comment on above: Performed By: #### L 500.2500, L100.0100 ####[facility] [address] [place], [address] IG% 0.400 Normal 0.0-0.9 [facility] Comment on above: Result Comment: IG% - Immature Granulocytes (promyelocytes, myelocytes andmetamyelocytes) > 1% indicates that a LEFT SHIFT is Present. Performed By: #### L 500.2500, L100.0100 ####[facility] [address] [place], [address] Lymphocytes/100 WBC (Bld) 14.4 % Low 19-41 [facility] Comment on above: Performed By: #### L 500.2500, L100.0100 ####[facility] [address] [place], [address] MCH (RBC) [Entitic mass] 30.8 pg Normal 27.0-32.0 [facility] Comment on above: Performed By: #### L 500.2500, L100.0100 ####[facility] [address] [place], [address] MCHC (RBC) [Mass/Vol] 35.4 g/dL Normal 32-36 [facility] Comment on above: Performed By: #### L 500.2500, L100.0100 ####[facility] [address] [place], [address] MCV (RBC) [Entitic vol] 87.1 fL Normal 80-94 [facility] Comment on above: Performed By: #### L 500.2500, L100.0100 ####[facility] [address] [place], [address] Monocytes/100 WBC (Bld) 11.2 % High 0-10 [facility] Comment on above: Performed By: #### L 500.2500, L100.0100 ####[facility] [address] [place], [address] Neutrophils/100 WBC (Bld) 71.9 % High 47-70 [facility] Comment on above: Performed By: #### L 500.2500, L100.0100 ####[facility] [address] [place], [address] Nucleated RBC (Bld) [#/Vol] 0 10*3/uL Normal 0-5 [facility] Comment on above: Performed By: #### L 500.2500, L100.0100 ####[facility] [address] [place], [address] Platelet mean volume (Bld) [Entitic vol] 8.6 fL Normal 6.2-12.0 [facility] Comment on above: Performed By: #### L 500.2500, L100.0100 ####[facility] [address] [place], [address] Platelets (Bld) [#/Vol] 333 10*3/uL Normal 150-450 [facility] Comment on above: Performed By: #### L 500.2500, L100.0100 ####[facility] [address] [place], [address] RBC (Bld) [#/Vol] 3.34 10*6/uL Low 4.6-6.2 [facility] Comment on above: Performed By: #### L 500.2500, L100.0100 ####[facility] [address] [place], [address] RDW SD 39.8 fl Normal 35.1-43.9 [facility] Comment on above: Performed By: #### L 500.2500, L100.0100 ####[facility] [address] [place], [address] WBC (Bld) [#/Vol] 7.9 10*3/uL Normal 4.4-11.0 [facility] Comment on above: Performed By: #### L 500.2500, L100.0100 ####[facility] [address] [place], [address] Carbon dioxide, total [Moles /volume] in Central venous bloodOrdered By: Radha Damon on 11-18-2024 CO2 [Moles/Vol] 24.0 mmol/L 21.0-32.0 [facility] Chloride assayOrdered By: Marybel Damon on 11-18-2024 Chloride [Moles/Vol] 95 mmol/L Low 98-108 [facility] Emergency Department Summary on 11-18-2024 Emergency Department Summary Normal [facility] Eosinophil percentageOrdered By: Radha Damon on 11-18-2024 Eosinophils/100 WBC (Bld) 1.8 % 0-5 [facility] Erythrocyte distribution wid th (RBC) [Ratio]Ordered By: Radha Damon on 11-18-2024 Erythrocyte distribution width (RBC) [Entitic vol] 39.8 fL 35.1-43.9 [facility] Erythrocyte distribution wid th ratioOrdered By: Radha Damon on 11-18-2024 Erythrocyte distribution width (RBC) [Ratio] 12.4 % 11.6-14.6 [facility] Estimation of creatinine dunia aranceOrdered By: Radha Damon on 11-18-2024 Estimated Creatinine Clearance Calc 54.00 ml/min 50-250 [facility] GFR/1.73 sq M.predicted gregg g non-blacks MDRD (S/P/Bld) [Vol rate/Area]Ordered By: Radha Damon on 11-18-2024 Estimated GFR (MDRD) Non-Af Amer 74 >60 [facility] Comment on above: mL/min/1.73m2 CKD-EP I Creatinine Equation (2020) H AND P Exam - Hospitaliston 11-18-2024 H&P Exam - Hospitalist Normal [facility] Hematocrit Auto (Bld) [Volum e fraction]Ordered By: Radha Damon on 11-18-2024 Hematocrit (Bld) [Volume fraction] 29.1 % Low 40-54 [facility] Hemoglobin measurementOrdere d By: Radha Damon on 11-18-2024 Hemoglobin (Bld) [Mass/Vol] 10.3 g/dL Low 13.0-16.5 [facility] Immature granulocytes/100 WB C Auto (Bld)Ordered By: Radha Damon on 11-18-2024 Immature granulocytes/100 WBC (Bld) 0.400 % 0.0-0.9 [facility] Comment on above: IG% - Immature Granu locytes (promyelocytes, myelocytes and metamyelocytes) > 1% indicates that a LEFT SHIFT is Present. Lymphocytes Auto (Unsp spec) [#/Vol]Ordered By: Radha Damon on 11-18-2024 Lymphocytes (Bld) [#/Vol] 1.14 10*3/uL 0.83-4.51 [facility] Lymphocytes/100 WBC Auto (Un sp spec)Ordered By: Radha Damon on 11-18-2024 Lymphocytes/100 WBC (Bld) 14.4 % Low 19-41 [facility] MCV (mean corpuscular volume ) determinationOrdered By: Radha Damon on 11-18-2024 MCV (RBC) [Entitic vol] 87.1 fL 80-94 [facility] Mean corpuscular hemoglobin (MCH) determinationOrdered By: Radha Damon on 11-18-2024 MCH (RBC) [Entitic mass] 30.8 pg 27.0-32.0 [facility] Mean corpuscular hemoglobin concentration (MCHC) determinationOrdered By: Radha Damon on 11-18-2024 MCHC (RBC) [Mass/Vol] 35.4 g/dL 32-36 [facility] Mean platelet volume determi nationOrdered By: Radha Damon on 11-18-2024 Platelet mean volume (Bld) [Entitic vol] 8.6 fL 6.2-12.0 [facility] Monocyte percentageOrdered B y: Radha Damon on 11-18-2024 Monocytes/100 WBC (Bld) 11.2 % High 0-10 [facility] Neutrophil percentageOrdered By: Radha Damon on 11-18-2024 Neutrophils/100 WBC (Bld) 71.9 % High 47-70 [facility] Nucleated red blood cell per centageOrdered By: Radha Damon on 11-18-2024 Nucleated RBC/100 WBC (Bld) [Ratio] 0 % 0-5 [facility] Platelet countOrdered By: Marybel Damon on 11-18-2024 Platelets (Bld) [#/Vol] 333 10*3/uL 150-450 [facility] Potassium (Unsp spec) [Mass/ Vol]Ordered By: Radha Damon on 11-18-2024 Potassium [Moles/Vol] 4.1 mmol/L 3.3-5.1 [facility] RBC Auto (Bld) [#/Vol]Ordere d By: Radha Damon on 11-18-2024 RBC (Bld) [#/Vol] 3.34 10*6/uL Low 4.6-6.2 [facility] Serum creatinine measurement (mass/volume)Ordered By: Radha Damon on 11-18-2024 Creatinine [Mass/Vol] 1.02 mg/dL 0.70-1.20 [facility] Serum glucose measurement (m ass/volume)Ordered By: Radha Damon on 11-18-2024 Glucose [Mass/Vol] 104 mg/dL High 70-99 [facility] Serum or plasma calcium shagufta urement (mass/volume)Ordered By: Radha Damon on 11-18-2024 Calcium [Mass/Vol] 8.9 mg/dL 7.6-11.0 [facility] Serum or plasma urea nitroge n measurement (mass/volume)Ordered By: Radha Damon on 04-20-2025 Urea nitrogen [Mass/Vol] 14 mg/dL 4- [facility] Sodium levelOrdered By: Seth Damon on 11-18-2024 Sodium [Moles/Vol] 130 mmol/L Low 133-145 [facility] Type AND Screenon 11-18-2024 Ab SCREEN GEL Negative Normal [facility] Comment on above: Order Comment: HGI Performed By: #### B TS ####[facility] [address] [place], [address] White blood cell (WBC) count Ordered By: Radha Damon on 11-18-2024 WBC (Bld) [#/Vol] 7.9 10*3/uL 4.4-11.0 [facility] [employer] 8623on OP Normal [facility] Comment on above: Performed By: #### M 100.0605, M100.6796, M100.637, M600.5000 ####[facility] [address] [place], [place], [address] 12 Lead EKGon 11-07-2024 12 Lead EKG Normal [facility] Absolute lymphocyte countOrd ered By: Stevie Harrington on 11-07-2024 Lymphocytes Auto (Unsp spec) [#/Vol] 0.91 10*3/uL 0.83-4.51 [facility] Absolute neutrophil countOrd ered By: Stevie Harrington on 11-07-2024 Neutrophils (Bld) [#/Vol] 4.3 10*3/uL 2.0-7.7 [facility] Anion gap in Serum or Plasma Ordered By: Stevie Harrington on 11-07-2024 Anion gap [Moles/Vol] 14 mmol/L 5-15 [facility] Automated lymphocyte count a s percentage of total leukocytesOrdered By: Stevie Harrington on 11-07-2024 Lymphocytes/100 WBC Auto (Unsp spec) 14.8 % Low 19-41 [facility] BUN/creatinine ratioOrdered By: Stevie Harrington on 11-07-2024 Urea nitrogen/Creatinine [Mass ratio] 16.0 mg/mg - [facility] Basic Metabolic Profile (BMP )on 11-07-2024 BUN/CRE 16.0 RATIO Normal - [facility] Comment on above: Performed By: #### L 500.2500, L100.0100 ####[facility] [address] [place], [address] Calcium [Mass/Vol] 8.6 mg/dL Normal 7.6-11.0 [facility] Comment on above: Performed By: #### L 500.2500, L100.0100 ####[facility] [address] [place], [address] Chloride [Moles/Vol] 96 mmol/L Low 98-108 [facility] Comment on above: Performed By: #### L 500.2500, L100.0100 ####[facility] [address] [place], [address] CO2 [Moles/Vol] 18.1 mmol/L Low 21.0-32.0 [facility] Comment on above: Performed By: #### L 500.2500, L100.0100 ####[facility] [address] [place], [address] Creatinine [Mass/Vol] 1.02 mg/dL Normal 0.70-1.20 [facility] Comment on above: Performed By: #### L 500.2500, L100.0100 ####[facility] [address] [place], [address] ECRCL 54.00 ml/min Normal 50-250 [facility] Comment on above: Performed By: #### L 500.2500, L100.0100 ####[facility] [address] [place], [address] GAP 14 Normal 5-15 [facility] Comment on above: Performed By: #### L 500.2500, L100.0100 ####[facility] [address] [place], [address] GFR/1.73 sq M.predicted among non-blacks MDRD (S/P/Bld) [Vol rate/Area] 74 mL/min/{1.73_m2} Normal >60 [facility] Comment on above: Result Comment: mL/m in/1.73m2 CKD-EPI Creatinine Equation (2020) Performed By: #### L 500.2500, L100.0100 ####[facility] [address] [place], [address] Glucose [Mass/Vol] 92 mg/dL Normal 70-99 [facility] Comment on above: Performed By: #### L 500.2500, L100.0100 ####[facility] [address] [place], [address] Potassium [Moles/Vol] 3.8 mmol/L Normal 3.3-5.1 [facility] Comment on above: Performed By: #### L 500.2500, L100.0100 ####[facility] [address] [place], [address] Sodium [Moles/Vol] 128 mmol/L Low 133-145 [facility] Comment on above: Performed By: #### L 500.2500, L100.0100 ####[facility] [address] [place], [address] Urea nitrogen [Mass/Vol] 16 mg/dL Normal 4-19 [facility] Comment on above: Performed By: #### L 500.2500, L100.0100 ####[facility] [address] [place], [address] Basophil percentageOrdered B y: Stevie Harrington on 11-07-2024 Basophils/100 WBC (Bld) 0.5 % 0-1 [facility] CBC W/Diff, Automatedon 04-0 Absolute Lymph 0.91 X10 3/uL Normal 0.83-4.51 [facility] Comment on above: Performed By: #### L 500.2500, L100.0100 ####[facility] [address] [place], [address] Absolute Neut 4.3 X10 3/uL Normal 2.0-7.7 [facility] Comment on above: Performed By: #### L 500.2500, L100.0100 ####[facility] [address] [place], [address] Basophils/100 WBC (Bld) 0.5 % Normal 0-1 [facility] Comment on above: Performed By: #### L 500.2500, L100.0100 ####[facility] [address] [place], [address] Eosinophils/100 WBC (Bld) 1.3 % Normal 0-5 [facility] Comment on above: Performed By: #### L 500.2500, L100.0100 ####[facility] [address] [place], [address] Erythrocyte distribution width (RBC) [Ratio] 12.3 % Normal 11.6-14.6 [facility] Comment on above: Performed By: #### L 500.2500, L100.0100 ####[facility] [address] [place], [address] Hematocrit (Bld) [Volume fraction] 34.0 % Low 40-54 [facility] Comment on above: Performed By: #### L 500.2500, L100.0100 ####[facility] [address] [place], [address] Hemoglobin (Bld) [Mass/Vol] 11.9 g/dL Low 13.0-16.5 [facility] Comment on above: Performed By: #### L 500.2500, L100.0100 ####[facility] [address] [place], [address] IG% 0.500 Normal 0.0-0.9 [facility] Comment on above: Result Comment: IG% - Immature Granulocytes (promyelocytes, myelocytes andmetamyelocytes) > 1% indicates that a LEFT SHIFT is Present. Performed By: #### L 500.2500, L100.0100 ####[facility] [address] [place], [address] Lymphocytes/100 WBC (Bld) 14.8 % Low 19-41 [facility] Comment on above: Performed By: #### L 500.2500, L100.0100 ####[facility] [address] [place], [address] MCH (RBC) [Entitic mass] 30.6 pg Normal 27.0-32.0 [facility] Comment on above: Performed By: #### L 500.2500, L100.0100 ####[facility] [address] [place], [address] MCHC (RBC) [Mass/Vol] 35.0 g/dL Normal 32-36 [facility] Comment on above: Performed By: #### L 500.2500, L100.0100 ####[facility] [address] [place], [address] MCV (RBC) [Entitic vol] 87.4 fL Normal 80-94 [facility] Comment on above: Performed By: #### L 500.2500, L100.0100 ####[facility] [address] [place], [address] Monocytes/100 WBC (Bld) 12.5 % High 0-10 [facility] Comment on above: Performed By: #### L 500.2500, L100.0100 ####[facility] [address] [place], [address] Neutrophils/100 WBC (Bld) 70.4 % High 47-70 [facility] Comment on above: Performed By: #### L 500.2500, L100.0100 ####[facility] [address] [place], [address] Nucleated RBC (Bld) [#/Vol] 0 10*3/uL Normal 0-5 [facility] Comment on above: Performed By: #### L 500.2500, L100.0100 ####[facility] [address] [place], [address] Platelet mean volume (Bld) [Entitic vol] 9.3 fL Normal 6.2-12.0 [facility] Comment on above: Performed By: #### L 500.2500, L100.0100 ####[facility] [address] [place], [address] Platelets (Bld) [#/Vol] 285 10*3/uL Normal 150-450 [facility] Comment on above: Performed By: #### L 500.2500, L100.0100 ####[facility] [address] [place], [address] RBC (Bld) [#/Vol] 3.89 10*6/uL Low 4.6-6.2 [facility] Comment on above: Performed By: #### L 500.2500, L100.0100 ####[facility] [address] [place], [address] RDW SD 39.5 fl Normal 35.1-43.9 [facility] Comment on above: Performed By: #### L 500.2500, L100.0100 ####[facility] [address] [place], [address] WBC (Bld) [#/Vol] 6.2 10*3/uL Normal 4.4-11.0 [facility] Comment on above: Performed By: #### L 500.2500, L100.0100 ####[facility] [address] [place], [address] Carbon dioxide, total [Moles /volume] in Central venous bloodOrdered By: Stevie Harrington on 11-07-2024 CO2 [Moles/Vol] 18.1 mmol/L Low 21.0-32.0 [facility] Chloride assayOrdered By: Brant Harrington on 11-07-2024 Chloride [Moles/Vol] 96 mmol/L Low 98-108 [facility] Electrocardiogram reportOrde red By: Adrian Flores on 11-07-2024 EKG study [facility] [address] [place] [address] 12 Lead EKG 11/07/24 0553 MR#: [id number] Acct: [id number] Name: JARED RAYMOND Rep #:[id number] : 1945 79 From: Adrian Flores MD Attending Dr: Dr. Stevie Harrington DO Status: ADM IN Ordering Dr: Steven Ann MD Date: 04/25 Location: [facility] Sex: M C Admitted: 11/06/24 Test Reason [...] was found Confirmed by ADRIAN FLORES MD ([id number]), industrial editor ELIZ LOPEZ ([id number]) on 11/07/2024 1:45:42 PM Referred By: Confirmed By: ADRIAN FLORES MD 11/07/24 0075 Date _ Adrian Flores MD CC: [employer] Mariela Olson; Dr. Steven Ann MD; Dr. Stevie Harrington DO ~ Signed [facility] Work Phone: Eosinophil percentageOrdered By: Stevie Harrington on 11-07-2024 Eosinophils/100 WBC (Bld) 1.3 % 0-5 [facility] Erythrocyte distribution wid th (RBC) [Ratio]Ordered By: Stevie Harrington on 11-07-2024 Erythrocyte distribution width (RBC) [Entitic vol] 39.5 fL 35.1-43.9 [facility] Erythrocyte distribution wid th ratioOrdered By: Stevie Harrington on 11-07-2024 Erythrocyte distribution width (RBC) [Ratio] 12.3 % 11.6-14.6 [facility] Erythrocyte distribution wid th standard deviationOrdered By: Stevie Harrington on 11-07-2024 Erythrocyte distribution width (RBC) [Ratio] 39.5 fl 35.1-43.9 [facility] Estimation of creatinine dunia aranceOrdered By: Stevie Harrington on 11-07-2024 Estimated Creatinine Clearance Calc 54.00 ml/min 50-250 [facility] GFR/1.73 sq M.predicted gregg g non-blacks MDRD (S/P/Bld) [Vol rate/Area]Ordered By: Stevie Harrington on 11-07-2024 Estimated GFR (MDRD) Non-Af Amer 74 >60 [facility] Comment on above: mL/min/1.73m2 CKD-EP I Creatinine Equation (2020) Glomerular filtration rate ( GFR) estimation/1.73 sq m using serum, plasma, or whole bOrdered By: Stevie Harrington on 11-07-2024 GFR/1.73 sq M.predicted among non-blacks MDRD (S/P/Bld) [Vol rate/Area] 74 mL/min/{1.73_m2} >60 [facility] Comment on above: mL/min/1.73m2 CKD-EP I Creatinine Equation (2020) Hematocrit Auto (Bld) [Volum e fraction]Ordered By: Stevie Harrington on 11-07-2024 Hematocrit (Bld) [Volume fraction] 34.0 % Low 40-54 [facility] Hemoglobin measurementOrdere d By: Stevie Harrington on 11-07-2024 Hemoglobin (Bld) [Mass/Vol] 11.9 g/dL Low 13.0-16.5 [facility] Immature granulocytes/100 WB C Auto (Bld)Ordered By: Stevie Harrington on 11-07-2024 Immature granulocytes/100 WBC (Bld) 0.500 % 0.0-0.9 [facility] Comment on above: IG% - Immature Granu locytes (promyelocytes, myelocytes and metamyelocytes) > 1% indicates that a LEFT SHIFT is Present. Lymphocytes Auto (Unsp spec) [#/Vol]Ordered By: Stevie Harrington on 11-07-2024 Lymphocytes (Bld) [#/Vol] 0.91 10*3/uL 0.83-4.51 [facility] Lymphocytes/100 WBC Auto (Un sp spec)Ordered By: Stevie Harrington on 11-07-2024 Lymphocytes/100 WBC (Bld) 14.8 % Low 19-41 [facility] MCV (mean corpuscular volume ) determinationOrdered By: Stevie Harrington on 11-07-2024 MCV (RBC) [Entitic vol] 87.4 fL 80-94 [facility] Mean corpuscular hemoglobin (MCH) determinationOrdered By: Stevie Harrington on 11-07-2024 MCH (RBC) [Entitic mass] 30.6 pg 27.0-32.0 [facility] Mean corpuscular hemoglobin concentration (MCHC) determinationOrdered By: Stevie Harrington on 11-07-2024 MCHC (RBC) [Mass/Vol] 35.0 g/dL 32-36 [facility] Mean platelet volume determi nationOrdered By: Stevie Harrington on 11-07-2024 Platelet mean volume (Bld) [Entitic vol] 9.3 fL 6.2-12.0 [facility] Monocyte percentageOrdered B y: Stevie Harrington on 11-07-2024 Monocytes/100 WBC (Bld) 12.5 % High 0-10 [facility] Neutrophil percentageOrdered By: Stevie Harrington on 11-07-2024 Neutrophils/100 WBC (Bld) 70.4 % High 47-70 [facility] Nucleated red blood cell per centageOrdered By: Stevie Harrington on 11-07-2024 Nucleated RBC/100 WBC (Bld) [Ratio] 0 % 0-5 [facility] Platelet countOrdered By: Brant Harrington on 11-07-2024 Platelets (Bld) [#/Vol] 285 10*3/uL 150-450 [facility] Potassium (Unsp spec) [Mass/ Vol]Ordered By: Stevie Harrington on 11-07-2024 Potassium [Moles/Vol] 3.8 mmol/L 3.3-5.1 [facility] Potassium measurement (mass/ volume)Ordered By: Stevie Harrington on 11-07-2024 Potassium (Unsp spec) [Mass/Vol] 3.8 mmol/L 3.3-5.1 [facility] RBC Auto (Bld) [#/Vol]Ordere d By: Stevie Harrington on 11-07-2024 RBC (Bld) [#/Vol] 3.89 10*6/uL Low 4.6-6.2 [facility] Serum creatinine measurement (mass/volume)Ordered By: Stevie Harrington on 11-07-2024 Creatinine [Mass/Vol] 1.02 mg/dL 0.70-1.20 [facility] Serum glucose measurement (m ass/volume)Ordered By: Stevie Harrington on 11-07-2024 Glucose [Mass/Vol] 92 mg/dL 70-99 [facility] Serum or plasma calcium shagufta urement (mass/volume)Ordered By: Stevie Harrington on 11-07-2024 Calcium [Mass/Vol] 8.6 mg/dL 7.6-11.0 [facility] Serum or plasma urea nitroge n measurement (mass/volume)Ordered By: Stevie Harrington on 11-07-2024 Urea nitrogen [Mass/Vol] 16 mg/dL 4-19 [facility] Sodium levelOrdered By: Stevie Harrington on 11-07-2024 Sodium [Moles/Vol] 128 mmol/L Low 133-145 [facility] White blood cell (WBC) count Ordered By: Stevie Harrington on 11-07-2024 WBC (Bld) [#/Vol] 6.2 10*3/uL 4.4-11.0 [facility] Bilirubin, totalOrdered By: Darrel Sanders on 11-06-2024 Bilirubin [Mass/Vol] 0.64 mg/dL 0.00-1.30 [facility] C. difficile DNA BLESSING+probe Q l (Unsp spec)Ordered By: Darrel Sanders on 11-06-2024 Clostridioides difficile (PCR) [facility] CBC W/Diff, Automatedon 04-0 Absolute Lymph 0.59 X10 3/uL Low 0.83-4.51 [facility] Comment on above: Performed By: #### L 100.0100 ####[facility] [address] [place], [address] Absolute Neut 5.0 X10 3/uL Normal 2.0-7.7 [facility] Comment on above: Performed By: #### L 100.0100 ####[facility] [address] [place], [address] Basophils/100 WBC (Bld) 0.3 % Normal 0-1 [facility] Comment on above: Performed By: #### L 100.0100 ####[facility] [address] [place], [address] Eosinophils/100 WBC (Bld) 0.3 % Normal 0-5 [facility] Comment on above: Performed By: #### L 100.0100 ####[facility] [address] [place], [address] Erythrocyte distribution width (RBC) [Ratio] 12.3 % Normal 11.6-14.6 [facility] Comment on above: Performed By: #### L 100.0100 ####[facility] [address] [place], [address] Hematocrit (Bld) [Volume fraction] 33.9 % Low 40-54 [facility] Comment on above: Performed By: #### L 100.0100 ####[facility] [address] [place], [address] Hemoglobin (Bld) [Mass/Vol] 11.9 g/dL Low 13.0-16.5 [facility] Comment on above: Performed By: #### L 100.0100 ####[facility] [address] [place], [address] IG% 0.300 Normal 0.0-0.9 [facility] Comment on above: Result Comment: IG% - Immature Granulocytes (promyelocytes, myelocytes andmetamyelocytes) > 1% indicates that a LEFT SHIFT is Present. Performed By: #### L 100.0100 ####[facility] [address] [place], [address] Lymphocytes/100 WBC (Bld) 9.1 % Low 19-41 [facility] Comment on above: Performed By: #### L 100.0100 ####[facility] [address] [place], [address] MCH (RBC) [Entitic mass] 31.1 pg Normal 27.0-32.0 [facility] Comment on above: Performed By: #### L 100.0100 ####[facility] [address] [place], [address] MCHC (RBC) [Mass/Vol] 35.1 g/dL Normal 32-36 [facility] Comment on above: Performed By: #### L 100.0100 ####[facility] [address] [place], [address] MCV (RBC) [Entitic vol] 88.5 fL Normal 80-94 [facility] Comment on above: Performed By: #### L 100.0100 ####[facility] [address] [place], [address] Monocytes/100 WBC (Bld) 11.9 % High 0-10 [facility] Comment on above: Performed By: #### L 100.0100 ####[facility] [address] [place], [address] Neutrophils/100 WBC (Bld) 78.1 % High 47-70 [facility] Comment on above: Performed By: #### L 100.0100 ####[facility] [address] [place], [address] Nucleated RBC (Bld) [#/Vol] 0 10*3/uL Normal 0-5 [facility] Comment on above: Performed By: #### L 100.0100 ####[facility] [address] [place], [address] Platelet mean volume (Bld) [Entitic vol] 9.1 fL Normal 6.2-12.0 [facility] Comment on above: Performed By: #### L 100.0100 ####[facility] [address] [place], [address] Platelets (Bld) [#/Vol] 290 10*3/uL Normal 150-450 [facility] Comment on above: Performed By: #### L 100.0100 ####[facility] [address] [place], [address] RBC (Bld) [#/Vol] 3.83 10*6/uL Low 4.6-6.2 [facility] Comment on above: Performed By: #### L 100.0100 ####[facility] [address] [place], [address] RDW SD 39.8 fl Normal 35.1-43.9 [facility] Comment on above: Performed By: #### L 100.0100 ####[facility] [address] [place], [address] WBC (Bld) [#/Vol] 6.5 10*3/uL Normal 4.4-11.0 [facility] Comment on above: Performed By: #### L 100.0100 ####[facility] [address] [place], [address] Absolute Lymph 1.08 X10 3/uL Normal 0.83-4.51 [facility] Comment on above: Performed By: #### L 501.2300, L100.0100, L500.4050 ####[facility] [address] [place], [address] Absolute Neut 5.9 X10 3/uL Normal 2.0-7.7 [facility] Comment on above: Performed By: #### L 501.2300, L100.0100, L500.4050 ####[facility] [address] [place], [address] Basophils/100 WBC (Bld) 0.3 % Normal 0-1 [facility] Comment on above: Performed By: #### L 501.2300, L100.0100, L500.4050 ####[facility] [address] [place], [address] Eosinophils/100 WBC (Bld) 1.4 % Normal 0-5 [facility] Comment on above: Performed By: #### L 501.2300, L100.0100, L500.4050 ####[facility] [address] [place], [address] Erythrocyte distribution width (RBC) [Ratio] 12.2 % Normal 11.6-14.6 [facility] Comment on above: Performed By: #### L 501.2300, L100.0100, L500.4050 ####[facility] [address] [place], [address] Hematocrit (Bld) [Volume fraction] 35.2 % Low 40-54 [facility] Comment on above: Performed By: #### L 501.2300, L100.0100, L500.4050 ####[facility] [address] [place], [address] Hemoglobin (Bld) [Mass/Vol] 12.3 g/dL Low 13.0-16.5 [facility] Comment on above: Performed By: #### L 501.2300, L100.0100, L500.4050 ####[facility] [address] [place], [address] IG% 0.300 Normal 0.0-0.9 [facility] Comment on above: Result Comment: IG% - Immature Granulocytes (promyelocytes, myelocytes andmetamyelocytes) > 1% indicates that a LEFT SHIFT is Present. Performed By: #### L 501.2300, L100.0100, L500.4050 ####[facility] [address] [place], [address] Lymphocytes/100 WBC (Bld) 13.7 % Low 19-41 [facility] Comment on above: Performed By: #### L 501.2300, L100.0100, L500.4050 ####[facility] [address] [place], [address] MCH (RBC) [Entitic mass] 30.4 pg Normal 27.0-32.0 [facility] Comment on above: Performed By: #### L 501.2300, L100.0100, L500.4050 ####[facility] [address] [place], [address] MCHC (RBC) [Mass/Vol] 34.9 g/dL Normal 32-36 [facility] Comment on above: Performed By: #### L 501.2300, L100.0100, L500.4050 ####[facility] [address] [place], [address] MCV (RBC) [Entitic vol] 87.1 fL Normal 80-94 [facility] Comment on above: Performed By: #### L 501.2300, L100.0100, L500.4050 ####[facility] [address] [place], [address] Monocytes/100 WBC (Bld) 9.8 % Normal 0-10 [facility] Comment on above: Performed By: #### L 501.2300, L100.0100, L500.4050 ####[facility] [address] [place], [address] Neutrophils/100 WBC (Bld) 74.5 % High 47-70 [facility] Comment on above: Performed By: #### L 501.2300, L100.0100, L500.4050 ####[facility] [address] [place], [address] Nucleated RBC (Bld) [#/Vol] 0 10*3/uL Normal 0-5 [facility] Comment on above: Performed By: #### L 501.2300, L100.0100, L500.4050 ####[facility] [address] [place], [address] Platelet mean volume (Bld) [Entitic vol] 8.7 fL Normal 6.2-12.0 [facility] Comment on above: Performed By: #### L 501.2300, L100.0100, L500.4050 ####[facility] [address] [place], [address] Platelets (Bld) [#/Vol] 303 10*3/uL Normal 150-450 [facility] Comment on above: Performed By: #### L 501.2300, L100.0100, L500.4050 ####[facility] [address] [place], [address] RBC (Bld) [#/Vol] 4.04 10*6/uL Low 4.6-6.2 [facility] Comment on above: Performed By: #### L 501.2300, L100.0100, L500.4050 ####[facility] [address] [place], [address] RDW SD 39.1 fl Normal 35.1-43.9 [facility] Comment on above: Performed By: #### L 501.2300, L100.0100, L500.4050 ####[facility] [address] [place], [address] WBC (Bld) [#/Vol] 7.9 10*3/uL Normal 4.4-11.0 [facility] Comment on above: Performed By: #### L 501.2300, L100.0100, L500.4050 ####[facility] [address] [place], [address] CDIFF (PCR)on 11-06-2024 CDIFF Is the patient recei ving laxatives? N New/unexplained onset of 3 or more stools in past 24 hrs? Y 027 027 NAP1-B1 Presumptive Negative *for epidemiolologic???use C. Diff PCR Negative- No toxigenic C. Diff Detected Normal [facility] Comment on above: Performed By: #### M 100.0605, M100.6796, M100.637, M600.5000 ####[facility] [address], [address] Calculated total iron bindin g capacityOrdered By: Darrel Sanders on 11-06-2024 Total Iron Binding Capacity 270 ug/dL 250-450 [facility] Clostridium difficile detect ion by polymerase chain reactionOrdered By: Darrel Sanders on 11-06-2024 C. difficile DNA BLESSING+probe Ql (Unsp spec) [facility] Colonoscopy Reporton 025 Colonoscopy Report Normal [facility] Comprehensive Metabolic Prof ilon 11-06-2024 Albumin [Mass/Vol] 3.9 g/dL Normal 3.4-4.8 [facility] Comment on above: Performed By: #### L 501.2300, L100.0100, L500.4050 ####[facility] [address] [place], [address] Albumin/Globulin [Mass ratio] 1.4 {ratio} Normal 0.9-2.4 [facility] Comment on above: Performed By: #### L 501.2300, L100.0100, L500.4050 ####[facility] [address] [place], [address] ALK PHOS 101 U/L Normal 40-129 [facility] Comment on above: Performed By: #### L 501.2300, L100.0100, L500.4050 ####[facility] [address] [place], [address] ALT [Catalytic activity/Vol] 14 U/L Normal <=46 [facility] Comment on above: Performed By: #### L 501.2300, L100.0100, L500.4050 ####[facility] [address] [place], [address] AST [Catalytic activity/Vol] 22 U/L Normal <=37 [facility] Comment on above: Performed By: #### L 501.2300, L100.0100, L500.4050 ####[facility] [address] [place], [address] Bilirubin [Mass/Vol] 0.64 mg/dL Normal 0.00-1.30 [facility] Comment on above: Performed By: #### L 501.2300, L100.0100, L500.4050 ####[facility] [address] [place], [address] BUN/CRE 14.4 RATIO Normal 10-20 [facility] Comment on above: Performed By: #### L 501.2300, L100.0100, L500.4050 ####[facility] [address] [place], [address] Calcium [Mass/Vol] 8.8 mg/dL Normal 7.6-11.0 [facility] Comment on above: Performed By: #### L 501.2300, L100.0100, L500.4050 ####[facility] [address] [place], [address] Chloride [Moles/Vol] 96 mmol/L Low 98-108 [facility] Comment on above: Performed By: #### L 501.2300, L100.0100, L500.4050 ####[facility] [address] [place], [address] CO2 [Moles/Vol] 21.7 mmol/L Normal 21.0-32.0 [facility] Comment on above: Performed By: #### L 501.2300, L100.0100, L500.4050 ####[facility] [address] [place], [address] Creatinine [Mass/Vol] 0.97 mg/dL Normal 0.70-1.20 [facility] Comment on above: Performed By: #### L 501.2300, L100.0100, L500.4050 ####[facility] [address] [place], [address] ECRCL 56.79 ml/min Normal 50-250 [facility] Comment on above: Performed By: #### L 501.2300, L100.0100, L500.4050 ####[facility] [address] [place], [address] GAP 12 Normal 5-15 [facility] Comment on above: Performed By: #### L 501.2300, L100.0100, L500.4050 ####[facility] [address] [place], [address] GFR/1.73 sq M.predicted among non-blacks MDRD (S/P/Bld) [Vol rate/Area] 79 mL/min/{1.73_m2} Normal >60 [facility] Comment on above: Result Comment: mL/m in/1.73m2 CKD-EPI Creatinine Equation (2020) Performed By: #### L 501.2300, L100.0100, L500.4050 ####[facility] [address] [place], [address] Globulin (S) [Mass/Vol] 2.8 g/dL Normal 2.2-4.2 [facility] Comment on above: Performed By: #### L 501.2300, L100.0100, L500.4050 ####[facility] [address] [place], [address] Glucose [Mass/Vol] 99 mg/dL Normal 70-99 [facility] Comment on above: Performed By: #### L 501.2300, L100.0100, L500.4050 ####[facility] [address] [place], [address] Potassium [Moles/Vol] 4.1 mmol/L Normal 3.3-5.1 [facility] Comment on above: Performed By: #### L 501.2300, L100.0100, L500.4050 ####[facility] [address] [place], [address] Sodium [Moles/Vol] 130 mmol/L Low 133-145 [facility] Comment on above: Performed By: #### L 501.2300, L100.0100, L500.4050 ####[facility] [address] [place], [address] T PROT 6.7 g/dL Normal 5.9-8.4 [facility] Comment on above: Performed By: #### L 501.2300, L100.0100, L500.4050 ####[facility] [address] [place], [address] Urea nitrogen [Mass/Vol] 14 mg/dL Normal 4-19 [facility] Comment on above: Performed By: #### L 501.2300, L100.0100, L500.4050 ####[facility] [address] [place], [address] ENTERIC PATHOGEN PANEL STOOL on 11-06-2024 EP PANEL Normal [facility] Comment on above: Performed By: #### M 100.0605, M100.6796, M100.637, M600.5000 ####[facility] [address] [place], [address] Emergency Department Summary on 11-06-2024 Emergency Department Summary Normal [facility] Ferritinon 11-06-2024 Ferritin [Mass/Vol] 138 ng/mL Normal 37-417 [facility] Comment on above: Performed By: #### L 501.9520, L503.6550, L503.0106, L503.6030, L501.7300 ####[facility] [address] [place], [place], [address] H AND P Exam - Hospitaliston 11-06-2024 H&P Exam - Hospitalist Normal [facility] Iron (Unsp spec) [Mass/Mass] Ordered By: Darrel Sanders on 11-06-2024 Iron [Mass/Vol] 50 ug/dL Low 65-175 [facility] Iron measurement (mass/mass) Ordered By: Darrel Sanders on 11-06-2024 Iron (Unsp spec) [Mass/Mass] 50 ug/dL Low 65-175 [facility] Iron saturation [Mass fracti on]Ordered By: Darrel Sanders on 11-06-2024 Iron Saturation 19.0 % 9-55 [facility] Iron+Iron Binding Capacityon 11-06-2024 Iron [Mass/Vol] 50 ug/dL Low 65-175 [facility] Comment on above: Performed By: #### L 501.9520, L503.6550, L503.0106, L503.6030, L501.7300 ####[facility] [address] [place], [address] IRON SATURATION 19.0 Normal 9-55 [facility] Comment on above: Performed By: #### L 501.9520, L503.6550, L503.0106, L503.6030, L501.7300 ####[facility] [address] [place], [address] TIBC 270 ug/dL Normal 250-450 [facility] Comment on above: Performed By: #### L 501.9520, L503.6550, L503.0106, L503.6030, L501.7300 ####[facility] [address] [place], [address] UIBC 220 ug/dL Low 228-428 [facility] Comment on above: Performed By: #### L 501.9520, L503.6550, L503.0106, L503.6030, L501.7300 ####[facility] [address] [place], [address] L499.0042on 11-06-2024 Trop T High Sen 23 ng/L High <=22 [facility] Comment on above: Performed By: #### L 499.0042 ####[facility] [address] [place], [address] L499.0043on 11-06-2024 Trop T High Sen 19 ng/L Normal <=22 [facility] Comment on above: Performed By: #### L 499.0043 ####[facility] [address] [place], [address] L501.4021on 11-06-2024 Trop T High Sen 18 ng/L Normal <=22 [facility] Comment on above: Performed By: #### L 501.4021 ####[facility] [address] [place], [place], [address] Laboratory - Chemistry and C hemistry - challengeOrdered By: Darrel Sanders on 11-06-2024 AST [Catalytic activity/Vol] 22 U/L <38 [facility] Lactoferrin IA Ql (Stl)Order ed By: Darrel Sanders on 11-06-2024 Stool Lactoferrin [facility] MR/CON.PCM.GIon 11-06-2024 MR/CON.PCM.GI Normal [facility] MR/POSTOP.ANEon 11-06-2024 MR/POSTOP.ANE Normal [facility] MR/RVMOUSHK0er 11-06-2024 MR/POSTOPAN2 Normal [facility] Magnesiumon 11-06-2024 Magnesium [Mass/Vol] 2.3 mg/dL High 1.5-2.2 [facility] Comment on above: Performed By: #### L 501.5200 ####[facility] [address] [place], [address] No Panel InformationOrdered By: Darrel Sanders on 11-06-2024 Unsaturated Iron Binding Capacity 220 ug/dL Low 228-428 [facility] 22 U/L <38 [facility] 220 ug/dL Low 228-428 [facility] Osmolality (U) [Osmolality]O rdered By: Darrel Sanders on 11-06-2024 Urine Osmolality 363 mOsm/KG >50 [facility] Comment on above: Normal Urine Referen ce Ranges Random: 50 - 1200 mOsm/kg H20 depending on fluid intake Random: >850 mOsm/kg after 12 hour fluid restriction 24 hour: ~300 - 900 mOsm/kg H2O Osmolality urOrdered By: Esdras Sanders on 11-06-2024 Osmolality (U) [Osmolality] 363 mOsm/KG >50 [facility] Comment on above: Normal Urine Referen ce Ranges Random: 50 - 1200 mOsm/kg H20 depending on fluid intake Random: >850 mOsm/kg after 12 hour fluid restriction 24 hour: ~300 - 900 mOsm/kg H2O Osmolality, Serumon 11-07-19 25 OSMOLALITY,SER 279 mOsm/KG Low 280-301 [facility] Comment on above: Performed By: #### L 501.9520, L503.6550, L503.0106, L503.6030, L501.7300 ####[facility] [address], [address] Osmolality, Urineon 11-07-19 25 OSMOLALITY,UR 363 mOsm/KG Normal [facility] Comment on above: Result Comment: Norm al Urine Reference Ranges Random: 50 - 1200 mOsm/kg H20 depending on fluid intake Random: >850 mOsm/kg after 12 hour fluid restriction 24 hour: 300 - 900 mOsm/kg H2O Performed By: #### L 501.7400 ####[facility] [address], [address] Osmolality, serumOrdered By: Darrel Sanders on 11-06-2024 Serum Osmolality 279 mOsm/KG Low 280-301 [facility] Ova and parasitesOrdered By: Darrel Sanders on 11-06-2024 Ova and Parasites [facility] Phosphoruson 11-06-2024 Phosphate [Mass/Vol] 2.6 mg/dL Low 2.7-4.5 [facility] Comment on above: Performed By: #### L 501.2300, L100.0100, L500.4050 ####[facility] [address] [place], [address] Serum globulin measurementOr dered By: Darrel Sanders on 11-06-2024 Globulin (S) [Mass/Vol] 2.8 g/dL 2.2-4.2 [facility] Serum or plasma alanine carrion otransferase (ALT) measurementOrdered By: Darrel Sanders on 11-06-2024 ALT [Catalytic activity/Vol] 14 U/L <47 [facility] Serum or plasma albumin shagufta urement (mass/volume)Ordered By: Darrel Sanders on 11-06-2024 Albumin [Mass/Vol] 3.9 g/dL 3.4-4.8 [facility] Serum or plasma albumin/glob ulin mass ratioOrdered By: Darrel Sanders on 11-06-2024 Albumin/Globulin [Mass ratio] 1.4 {ratio} 0.9-2.4 [facility] Serum or plasma alkaline airam sphatase measurementOrdered By: Darrel Sanders on 11-06-2024 ALP [Catalytic activity/Vol] 101 U/L 40-129 [facility] Serum or plasma ferritin francy surement (mass/volume)Ordered By: Darrel Sanders on 11-06-2024 Ferritin [Mass/Vol] 138 ng/mL 37-417 [facility] Serum or plasma iron saturat ion measurement (mass fraction)Ordered By: Darrel Sanders on 11-06-2024 Iron saturation [Mass fraction] 19.0 % 9-55 [facility] Serum phosphorus measurement Ordered By: Darrel Sanders on 11-06-2024 Phosphorus Level 2.6 mg/dL Low 2.7-4.5 [facility] Stool Lactoferrin/WBCon 04-0 WBCST Is the patient recei ving laxatives? N New/unexplained onset of 3 or more stools in past 24 hrs? Y Normal Reference Range = Negative Fecal WBC Lactoferrin A Positive: Fecal WBC Lactoferrin present A Normal [facility] Comment on above: Performed By: #### M 100.0605, M100.6796, M100.637, M600.5000 ####[facility] [address] [place], [address] Stool Occult Blood iFOBon STOB Positive Normal [facility] Comment on above: Performed By: #### B TS, L503.6005, L500.2500, M100.7900, L300.4310, L100.0100, L300.3900 ####[facility] [address] [place], [address] Stool enteric pathogen panel by probe and target amplification methodOrdered By: Darrel Sanders on 11-06-2024 Enteric Bacteriology [facility] Stool lactoferrin detection by immunoassayOrdered By: Darrel Sanders on 11-06-2024 Lactoferrin IA Ql (Stl) [facility] TSH DL <= 0.005 mIU/L QnOrde red By: Darrel Sanders on 04-08-2025 Thyroid Stimulating Hormone (TSH) 1.900 uIU/mL 0.300-4.200 [facility] TSH Qn 1.900 uIU/mL 0.300-4.200 [facility] Thyroid Stim Hormone (TSH)on 11-06-2024 TSH 1.900 uIU/mL Normal 0.300-4.200 [facility] Comment on above: Performed By: #### L 501.9520, L503.6550, L503.0106, L503.6030, L501.7300 ####[facility] [address] [place], [place], [id number] Total proteinOrdered By: Esdras Sanders on 11-06-2024 Protein [Mass/Vol] 6.7 g/dL 5.9-8.4 [facility] Troponin T.cardiac High sens itivity method [Mass/Vol]Ordered By: Darrel Sanders on 11-06-2024 Troponin T High Sensitivity 4 Hour 19 ng/L <22 [facility] Troponin T High Sensitivity 2 Hour 23 ng/L High <22 [facility] Troponin T High Sensitivity 18 ng/L <22 [facility] Troponin T.cardiac [Mass/vol ume] in Serum or Plasma by High sensitivity methodOrdered By: Darrel Sanders on 11-06-2024 Troponin T.cardiac High sensitivity method [Mass/Vol] 19 ng/L <22 [facility] Troponin T.cardiac High sensitivity method [Mass/Vol] 23 ng/L High <22 [facility] Troponin T.cardiac High sensitivity method [Mass/Vol] 18 ng/L <22 [facility] Vitamin B12on 11-06-2024 Cobalamin (Vitamin B12) [Mass/Vol] 790 pg/mL Normal 180-914 [facility] Comment on above: Performed By: #### L 501.9520, L503.6550, L503.0106, L503.6030, L501.7300 ####[facility] [address] [place], [place], [id number] Vitamin B12 ser/plasOrdered By: Darrel Sanders on 11-06-2024 Cobalamin (Vitamin B12) [Mass/Vol] 790 pg/mL 180-914 [facility] Absolute neutrophil countOrd ered By: Harrison Linares on 11-05-2024 Neutrophils (Bld) [#/Vol] 6.9 10*3/uL 2.0-7.7 [facility] Activated partial thrombopla stin time (aPTT) in platelet poor plasma by coagulation aOrdered By: Harrison Linares on 11-05-2024 aPTT Coag (PPP) [Time] 22.1 s Low 24.1-36.2 [facility] Anion gap in Serum or Plasma Ordered By: Harrison Linares on 11-05-2024 Anion gap [Moles/Vol] 12 mmol/L - [facility] BUN/creatinine ratioOrdered By: Harrison Linares on 11-05-2024 Urea nitrogen/Creatinine [Mass ratio] 15.4 mg/mg - [facility] Basic Metabolic Profile (BMP )on 11-05-2024 BUN/CRE 15.4 RATIO Normal 05-20 [facility] Comment on above: Performed By: #### B TS, L503.6005, L500.2500, M100.7900, L300.4310, L100.0100, L300.3900 ####[facility] [address] [place], [address] Calcium [Mass/Vol] 9.0 mg/dL Normal 7.6-11.0 [facility] Comment on above: Performed By: #### B TS, L503.6005, L500.2500, M100.7900, L300.4310, L100.0100, L300.3900 ####[facility] [address] [place], [address] Chloride [Moles/Vol] 90 mmol/L Low 98-108 [facility] Comment on above: Performed By: #### B TS, L503.6005, L500.2500, M100.7900, L300.4310, L100.0100, L300.3900 ####[facility] [address] [place], [address] CO2 [Moles/Vol] 23.8 mmol/L Normal 21.0-32.0 [facility] Comment on above: Performed By: #### B TS, L503.6005, L500.2500, M100.7900, L300.4310, L100.0100, L300.3900 ####[facility] [address] [place], [address] Creatinine [Mass/Vol] 0.92 mg/dL Normal 0.70-1.20 [facility] Comment on above: Performed By: #### B TS, L503.6005, L500.2500, M100.7900, L300.4310, L100.0100, L300.3900 ####[facility] [address] [place], [place], [id number] ECRCL 59.87 ml/min Normal 50-250 [facility] Comment on above: Performed By: #### B TS, L503.6005, L500.2500, M100.7900, L300.4310, L100.0100, L300.3900 ####[facility] [address] [place], [address] GAP 12 Normal 5-15 [facility] Comment on above: Performed By: #### B TS, L503.6005, L500.2500, M100.7900, L300.4310, L100.0100, L300.3900 ####[facility] [address] [place], [address] GFR/1.73 sq M.predicted among non-blacks MDRD (S/P/Bld) [Vol rate/Area] 84 mL/min/{1.73_m2} Normal >60 [facility] Comment on above: Result Comment: mL/m in/1.73m2 CKD-EPI Creatinine Equation (2020) Performed By: #### B TS, L503.6005, L500.2500, M100.7900, L300.4310, L100.0100, L300.3900 ####[facility] [address] [place], [address] Glucose [Mass/Vol] 110 mg/dL High 70-99 [facility] Comment on above: Performed By: #### B TS, L503.6005, L500.2500, M100.7900, L300.4310, L100.0100, L300.3900 ####[facility] [address] [place], [address] Potassium [Moles/Vol] 4.0 mmol/L Normal 3.3-5.1 [facility] Comment on above: Performed By: #### B TS, L503.6005, L500.2500, M100.7900, L300.4310, L100.0100, L300.3900 ####[facility] [address] [place], [address] Sodium [Moles/Vol] 126 mmol/L Low 133-145 [facility] Comment on above: Performed By: #### B TS, L503.6005, L500.2500, M100.7900, L300.4310, L100.0100, L300.3900 ####[facility] [address] [place], [address] Urea nitrogen [Mass/Vol] 14 mg/dL Normal 4-19 [facility] Comment on above: Performed By: #### B TS, L503.6005, L500.2500, M100.7900, L300.4310, L100.0100, L300.3900 ####[facility] [address] [place], [address] Basophil percentageOrdered B y: Harrison Linares on 11-05-2024 Basophils/100 WBC (Bld) 0.2 % 0-1 [facility] CBC W/Diff, Automatedon Absolute Lymph 1.16 X10 3/uL Normal 0.83-4.51 [facility] Comment on above: Order Comment: REDRA W. PREVIOUS SPECIMEN REJECTED DUE TOCLOTTED. 11/05/242304 Quintin R Cardenas. Performed By: #### L 100.0100 ####[facility] [address] [place], [address] Absolute Neut 6.9 X10 3/uL Normal 2.0-7.7 [facility] Comment on above: Order Comment: REDRA W. PREVIOUS SPECIMEN REJECTED DUE TOCLOTTED. 11/05/242304 Quintin R Cardenas. Performed By: #### L 100.0100 ####[facility] [address] [place], [address] Basophils/100 WBC (Bld) 0.2 % Normal 0-1 [facility] Comment on above: Order Comment: REDRA W. PREVIOUS SPECIMEN REJECTED DUE TOCLOTTED. 11/05/242304 Quintin R Cardenas. Performed By: #### L 100.0100 ####[facility] [address] [place], [address] Eosinophils/100 WBC (Bld) 0.6 % Normal 0-5 [facility] Comment on above: Order Comment: REDRA W. PREVIOUS SPECIMEN REJECTED DUE TOCLOTTED. 11/05/242304 Quintin R Cardenas. Performed By: #### L 100.0100 ####[facility] [address] [place], [address] Erythrocyte distribution width (RBC) [Ratio] 12.2 % Normal 11.6-14.6 [facility] Comment on above: Order Comment: REDRA W. PREVIOUS SPECIMEN REJECTED DUE TOCLOTTED. 11/05/242304 Quintin R Cardenas. Performed By: #### L 100.0100 ####[facility] [address] [place], [address] Hematocrit (Bld) [Volume fraction] 32.9 % Low 40-54 [facility] Comment on above: Order Comment: REDRA W. PREVIOUS SPECIMEN REJECTED DUE TOCLOTTED. 11/05/242304 Quintin R Cardenas. Performed By: #### L 100.0100 ####[facility] [address] [place], [address] Hemoglobin (Bld) [Mass/Vol] 11.5 g/dL Low 13.0-16.5 [facility] Comment on above: Order Comment: REDRA W. PREVIOUS SPECIMEN REJECTED DUE TOCLOTTED. 11/05/242304 Quintin R Cardenas. Performed By: #### L 100.0100 ####[facility] [address] [place], [address] IG% 0.600 Normal 0.0-0.9 [facility] Comment on above: Order Comment: REDRA W. PREVIOUS SPECIMEN REJECTED DUE TOCLOTTED. 11/05/242304 Quintin R Cardenas. Result Comment: IG% - Immature Granulocytes (promyelocytes, myelocytes andmetamyelocytes) > 1% indicates that a LEFT SHIFT is Present. Performed By: #### L 100.0100 ####[facility] [address] [place], [address] Lymphocytes/100 WBC (Bld) 12.9 % Low 19-41 [facility] Comment on above: Order Comment: REDRA W. PREVIOUS SPECIMEN REJECTED DUE TOCLOTTED. 11/05/242304 Quintin R Cardenas. Performed By: #### L 100.0100 ####[facility] [address] [place], [address] MCH (RBC) [Entitic mass] 30.5 pg Normal 27.0-32.0 [facility] Comment on above: Order Comment: REDRA W. PREVIOUS SPECIMEN REJECTED DUE TOCLOTTED. 11/05/242304 Quintin R Cardenas. Performed By: #### L 100.0100 ####[facility] [address] [place], [address] MCHC (RBC) [Mass/Vol] 35.0 g/dL Normal 32-36 [facility] Comment on above: Order Comment: REDRA W. PREVIOUS SPECIMEN REJECTED DUE TOCLOTTED. 11/05/242304 Quintin R Cardenas. Performed By: #### L 100.0100 ####[facility] [address] [place], [address] MCV (RBC) [Entitic vol] 87.3 fL Normal 80-94 [facility] Comment on above: Order Comment: REDRA W. PREVIOUS SPECIMEN REJECTED DUE TOCLOTTED. 11/05/242304 Quintin R Cardenas. Performed By: #### L 100.0100 ####[facility] [address] [place], [address] Monocytes/100 WBC (Bld) 8.9 % Normal 0-10 [facility] Comment on above: Order Comment: REDRA W. PREVIOUS SPECIMEN REJECTED DUE TOCLOTTED. 11/05/242304 Quintin R Cardenas. Performed By: #### L 100.0100 ####[facility] [address] [place], [address] Neutrophils/100 WBC (Bld) 76.8 % High 47-70 [facility] Comment on above: Order Comment: REDRA W. PREVIOUS SPECIMEN REJECTED DUE TOCLOTTED. 11/05/242304 Quintin R Cardenas. Performed By: #### L 100.0100 ####[facility] [address] [place], [address] Nucleated RBC (Bld) [#/Vol] 0 10*3/uL Normal 0-5 [facility] Comment on above: Order Comment: REDRA W. PREVIOUS SPECIMEN REJECTED DUE TOCLOTTED. 11/05/242304 Quintin R Cardenas. Performed By: #### L 100.0100 ####[facility] [address] [place], [address] Platelet mean volume (Bld) [Entitic vol] 8.7 fL Normal 6.2-12.0 [facility] Comment on above: Order Comment: REDRA W. PREVIOUS SPECIMEN REJECTED DUE TOCLOTTED. 11/05/242304 Quintin R Cardenas. Performed By: #### L 100.0100 ####[facility] [address] [place], [address] Platelets (Bld) [#/Vol] 274 10*3/uL Normal 150-450 [facility] Comment on above: Order Comment: REDRA W. PREVIOUS SPECIMEN REJECTED DUE TOCLOTTED. 11/05/242304 Quintin R Cardenas. Performed By: #### L 100.0100 ####[facility] [address] [place], [address] RBC (Bld) [#/Vol] 3.77 10*6/uL Low 4.6-6.2 [facility] Comment on above: Order Comment: REDRA W. PREVIOUS SPECIMEN REJECTED DUE TOCLOTTED. 11/05/242304 Quintin R Cardenas. Performed By: #### L 100.0100 ####[facility] [address] [place], [address] RDW SD 39.0 fl Normal 35.1-43.9 [facility] Comment on above: Order Comment: REDRA W. PREVIOUS SPECIMEN REJECTED DUE TOCLOTTED. 11/05/242304 Quintin R Cardenas. Performed By: #### L 100.0100 ####[facility] [address] [place], [address] WBC (Bld) [#/Vol] 9.0 10*3/uL Normal 4.4-11.0 [facility] Comment on above: Order Comment: REDRA W. PREVIOUS SPECIMEN REJECTED DUE TOCLOTTED. 11/05/242304 Quintin R Cardenas. Performed By: #### L 100.0100 ####[facility] [address] [place], [address] Absolute Neut Normal 2.0-7.7 [facility] Comment on above: Result Comment: This specimen has been REJECTED due to Laboratory criteria:Clotted.CARGABRITE has been notified of need of recollection.11/05/242304 Quintin R Cardenas Performed By: #### B TS, L503.6005, L500.2500, M100.7900, L300.4310, L100.0100, L300.3900 ####[facility] [address] [place], [place], [address] HCT Normal 40-54 [facility] Comment on above: Result Comment: This specimen has been REJECTED due to Laboratory criteria:Clotted.CARGABRITE has been notified of need of recollection.11/05/242304 Quintin R Cardenas Performed By: #### B TS, L503.6005, L500.2500, M100.7900, L300.4310, L100.0100, L300.3900 ####[facility] [address] [place], [place], [id number] HGB Normal 13.0-16.5 [facility] Comment on above: Result Comment: This specimen has been REJECTED due to Laboratory criteria:Clotted.CARGABRITE has been notified of need of recollection.11/05/242304 Quintin R Cardenas Performed By: #### B TS, L503.6005, L500.2500, M100.7900, L300.4310, L100.0100, L300.3900 ####[facility] [address] [place], [place], [address] MCH Normal 27.0-32.0 [facility] Comment on above: Result Comment: This specimen has been REJECTED due to Laboratory criteria:Clotted.CARGABRITE has been notified of need of recollection.11/05/242304 Quintin R Cardenas Performed By: #### B TS, L503.6005, L500.2500, M100.7900, L300.4310, L100.0100, L300.3900 ####[facility] [address] [place], [address] MCHC Normal 32-36 [facility] Comment on above: Result Comment: This specimen has been REJECTED due to Laboratory criteria:Clotted.CARGABRITE has been notified of need of recollection.11/05/242304 Quintin R Cardenas Performed By: #### B TS, L503.6005, L500.2500, M100.7900, L300.4310, L100.0100, L300.3900 ####[facility] [address] [place], [address] MCV Normal 80-94 [facility] Comment on above: Result Comment: This specimen has been REJECTED due to Laboratory criteria:Clotted.CARGABRITE has been notified of need of recollection.11/05/242304 Quintin R Cardenas Performed By: #### B TS, L503.6005, L500.2500, M100.7900, L300.4310, L100.0100, L300.3900 ####[facility] [address] [place], [address] NEUT% Normal 47-70 [facility] Comment on above: Result Comment: This specimen has been REJECTED due to Laboratory criteria:Clotted.CARGABRITE has been notified of need of recollection.11/05/242304 Quintin R Cardenas Performed By: #### B TS, L503.6005, L500.2500, M100.7900, L300.4310, L100.0100, L300.3900 ####[facility] [address] [place], [address] PLT Normal 150-450 [facility] Comment on above: Result Comment: This specimen has been REJECTED due to Laboratory criteria:Clotted.CARGABRITE has been notified of need of recollection.11/05/242304 Quintin R Cardenas Performed By: #### B TS, L503.6005, L500.2500, M100.7900, L300.4310, L100.0100, L300.3900 ####[facility] [address] [place], [address] RBC Normal 4.6-6.2 [facility] Comment on above: Result Comment: This specimen has been REJECTED due to Laboratory criteria:Clotted.CARGABRITE has been notified of need of recollection.11/05/242304 Quintin R Cardenas Performed By: #### B TS, L503.6005, L500.2500, M100.7900, L300.4310, L100.0100, L300.3900 ####[facility] [address] [place], [address] RDW CV Normal 11.6-14.6 [facility] Comment on above: Result Comment: This specimen has been REJECTED due to Laboratory criteria:Clotted.CARGABRITE has been notified of need of recollection.11/05/242304 Quintin R Cardenas Performed By: #### B TS, L503.6005, L500.2500, M100.7900, L300.4310, L100.0100, L300.3900 ####[facility] [address] [place], [address] RDW SD Normal 35.1-43.9 [facility] Comment on above: Result Comment: This specimen has been REJECTED due to Laboratory criteria:Clotted.CARGABRITE has been notified of need of recollection.11/05/242304 Quintin R Cardenas Performed By: #### B TS, L503.6005, L500.2500, M100.7900, L300.4310, L100.0100, L300.3900 ####[facility] [address] [place], [address] WBC Normal 4.4-11.0 [facility] Comment on above: Result Comment: This specimen has been REJECTED due to Laboratory criteria:Clotted.CARGABRITE has been notified of need of recollection.11/05/242304 Quintin R Cardenas Performed By: #### B TS, L503.6005, L500.2500, M100.7900, L300.4310, L100.0100, L300.3900 ####[facility] [address] [place], [place], [id number] CTA Abd/Pelvis W/WO Contrast on 11-05-2024 CTA Abd/Pelvis W/WO Contrast Normal [facility] Carbon dioxide, total [Moles /volume] in Central venous bloodOrdered By: Harrison Linares on 11-05-2024 CO2 [Moles/Vol] 23.8 mmol/L 21.0-32.0 [facility] Chloride assayOrdered By: Erica Linares on 11-05-2024 Chloride [Moles/Vol] 90 mmol/L Low 98-108 [facility] Eosinophil percentageOrdered By: Harrison Linares on 11-05-2024 Eosinophils/100 WBC (Bld) 0.6 % 0-5 [facility] Erythrocyte distribution wid th (RBC) [Ratio]Ordered By: Harrison Linares on 11-05-2024 Erythrocyte distribution width (RBC) [Entitic vol] 39.0 fL 35.1-43.9 [facility] Erythrocyte distribution wid th ratioOrdered By: Harrison Linares on 11-05-2024 Erythrocyte distribution width (RBC) [Ratio] 12.2 % 11.6-14.6 [facility] Estimation of creatinine dunia aranceOrdered By: Harrison Linares on 11-05-2024 Estimated Creatinine Clearance Calc 59.87 ml/min 50-250 [facility] GFR/1.73 sq M.predicted gregg g non-blacks MDRD (S/P/Bld) [Vol rate/Area]Ordered By: Harrison Linares on 11-05-2024 Estimated GFR (MDRD) Non-Af Amer 84 >60 [facility] Comment on above: mL/min/1.73m2 CKD-EP I Creatinine Equation (2020) Hematocrit Auto (Bld) [Volum e fraction]Ordered By: Harrison Linares on 11-05-2024 Hematocrit (Bld) [Volume fraction] 32.9 % Low 40-54 [facility] Hemoglobin measurementOrdere d By: Harrison Linares on 11-05-2024 Hemoglobin (Bld) [Mass/Vol] 11.5 g/dL Low 13.0-16.5 [facility] Immature granulocytes/100 WB C Auto (Bld)Ordered By: Harrison Linares on 11-05-2024 Immature granulocytes/100 WBC (Bld) 0.600 % 0.0-0.9 [facility] Comment on above: IG% - Immature Granu locytes (promyelocytes, myelocytes and metamyelocytes) > 1% indicates that a LEFT SHIFT is Present. International normalized rat io (INR) calculationOrdered By: Harrison Linares on 11-05-2024 INR Coag (Bld) [Relative time] 0.9 {INR} [facility] Lactic Acidon 11-05-2024 Lactate [Moles/Vol] mmol/L Normal 0.0-2.0 [facility] Comment on above: Order Comment: Y Performed By: #### B TS, L503.6005, L500.2500, M100.7900, L300.4310, L100.0100, L300.3900 ####[facility] [address] [place], [address] Lactic acid measurementOrder ed By: Harrison Linares on 11-05-2024 Lactate [Moles/Vol] mmol/L 0.0-2.0 [facility] Lower GI hemoglobin IA Ql (S tl)Ordered By: Harrison Linares on 11-05-2024 Stool Occult Blood (EDINSON) Positive Abnormal [facility] Lymphocytes Auto (Unsp spec) [#/Vol]Ordered By: Harrison Linares on 11-05-2024 Lymphocytes (Bld) [#/Vol] 1.16 10*3/uL 0.83-4.51 [facility] [facility] Lymph[facility]/100 WBC Auto (Un sp spec)Ordered By: Harrison Linares on 11-05-2024 Lymphocytes/100 WBC (Bld) 12.9 % Low 19-41 [facility] MCV (mean corpuscular volume ) determinationOrdered By: Harrison Linares on 11-05-2024 MCV (RBC) [Entitic vol] 87.3 fL 80-94 [facility] Magnesium (Unsp spec) [Mass/ Vol]Ordered By: Darrel Sanders on 11-05-2024 Magnesium [Mass/Vol] 2.3 mg/dL High 1.5-2.2 [facility] Magnesium measurement (mass/ volume)Ordered By: Darrel Sanders on 11-05-2024 Magnesium (Unsp spec) [Mass/Vol] 2.3 mg/dL High 1.5-2.2 [facility] Mean corpuscular hemoglobin (MCH) determinationOrdered By: Harrison Linares on 11-05-2024 MCH (RBC) [Entitic mass] 30.5 pg 27.0-32.0 [facility] Mean corpuscular hemoglobin concentration (MCHC) determinationOrdered By: Harrison Linares on 11-05-2024 MCHC (RBC) [Mass/Vol] 35.0 g/dL 32-36 [facility] Mean platelet volume determi nationOrdered By: Harrison Linares on 11-05-2024 Platelet mean volume (Bld) [Entitic vol] 8.7 fL 6.2-12.0 [facility] Monocyte percentageOrdered B y: Harrison Linares on 11-05-2024 Monocytes/100 WBC (Bld) 8.9 % 0-10 [facility] Neutrophil percentageOrdered By: Harrison Linares on 11-05-2024 Neutrophils/100 WBC (Bld) 76.8 % High 47-70 [facility] Nucleated red blood cell per centageOrdered By: Harrison Linares on 11-05-2024 Nucleated RBC/100 WBC (Bld) [Ratio] 0 % 0-5 [facility] Partial Thromboplast Timeon 11-05-2024 aPTT Coag (Bld) [Time] 22.1 s Low 24.1-36.2 [facility] Comment on above: Performed By: #### B TS, L503.6005, L500.2500, M100.7900, L300.4310, L100.0100, L300.3900 ####[facility] [address] [place], [address] Platelet countOrdered By: Erica Linares on 11-05-2024 Platelets (Bld) [#/Vol] 274 10*3/uL 150-450 [facility] Potassium (Unsp spec) [Mass/ Vol]Ordered By: Harrison Linares on 11-05-2024 Potassium [Moles/Vol] 4.0 mmol/L 3.3-5.1 [facility] Prothrombin Time w/INRon INR Coag (PPP) [Relative time] 0.9 {INR} Normal [facility] Comment on above: Performed By: #### B TS, L503.6005, L500.2500, M100.7900, L300.4310, L100.0100, L300.3900 ####[facility] [address] [place], [place], [id number] PT Coag (PPP) [Time] 12.2 s Normal 11.7-14.9 [facility] Comment on above: Performed By: #### B TS, L503.6005, L500.2500, M100.7900, L300.4310, L100.0100, L300.3900 ####[facility] [address] [place], [place], [id number] Prothrombin timeOrdered By: Harrison Linares on 11-05-2024 PT Coag (PPP) [Time] 12.2 s 11.7-14.9 [facility] RBC Auto (Bld) [#/Vol]Ordere d By: Harrison Linares on 11-05-2024 RBC (Bld) [#/Vol] 3.77 10*6/uL Low 4.6-6.2 [facility] Serum creatinine measurement (mass/volume)Ordered By: Harrison Linares on 11-05-2024 Creatinine [Mass/Vol] 0.92 mg/dL 0.70-1.20 [facility] Serum glucose measurement (m ass/volume)Ordered By: Harrison Linares on 11-05-2024 Glucose [Mass/Vol] 110 mg/dL High 70-99 [facility] Serum or plasma calcium shagufta urement (mass/volume)Ordered By: Harrison Linares on 11-05-2024 Calcium [Mass/Vol] 9.0 mg/dL 7.6-11.0 [facility] Serum or plasma urea nitroge n measurement (mass/volume)Ordered By: Harrison Linares on 11-05-2024 Urea nitrogen [Mass/Vol] 14 mg/dL 4-19 [facility] Sodium levelOrdered By: Dylan Linares on 11-05-2024 Sodium [Moles/Vol] 126 mmol/L Low 133-145 [facility] Stool gastrointestinal hemog lobin detection by immunologic methodOrdered By: Harrison Linares on 11-05-2024 Lower GI hemoglobin IA Ql (Stl) Positive Abnormal [facility] Type AND Screenon 11-05-2024 ABO and Rh group Nom (Bld) Blood group O Rh(D) positive Normal [facility] Comment on above: Order Comment: HGI Performed By: #### B TS, L503.6005, L500.2500, M100.7900, L300.4310, L100.0100, L300.3900 ####[facility] [address] [place], [address] White blood cell (WBC) count Ordered By: Harrison Linares on 11-05-2024 WBC (Bld) [#/Vol] 9.0 10*3/uL 4.4-11.0 [facility] aPTT Coag (PPP) [Time]Ordere d By: Harrison Linares on 11-05-2024 aPTT Coag (Bld) [Time] 22.1 s Low 24.1-36.2 [facility] CNPMendy 11-02-2024 GRACY Telephone (CHRIS) -- JARED RAYMOND ([id number]) 1945 M Date Time Provider Department 11/02/24 PAPI HERNANDEZ During your visit today, we recorded the following information about you: Filomena Rodrigues 11/02/2024 2:33 PM Signed Patient and his daughter stopped in to talk to Jolynn Frias. 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 Please call patients daughter Teresa [phone] Allergies As of Date: 11/02/2024 (No Known Allergies) Date Reviewed: 05/05/2020 Reviewed by: Caro Mo (Rn), RN - Fully Assessed Reason for Visit: Patient Question [9437] Prescriptions as of 01/12/2025 - amLODIPine (NORVASC) [...] of Hemorrhage [*03/23/2010 Coronary artery disease involving [place]*07/18/2019 History of varicose veins [...] Status:Closed by FILOMENA RODRIGUES on 01/12/25 Normal [facility] Oncology Visit Reporton 04-0 Oncology Visit Report Normal [facility] Carcinoembryonic Antigenon 0 10-26-2024 CEA 25.2 ng/mL High 0.0-4.7 [facility] Comment on above: Order Comment: ADD O N TO BW-ALREADY IN LAB Result Comment: Nons mokers <3.9 Smokers <5.6[employer] Electrochemiluminescence Immunoassay(ECLIA)Values obtained with different assay methods or kitscannot be used interchangeably. Results cannot beinterpreted as absolute evidence of the presence orabsence of malignant disease.Performed at: [place] [id number] Director: Jian Paredes PhD, Phone: [phone] Performed By: #### L 3100.2300 ####[facility] [address] [place], [place], [id number] Abdomen/Pelvis W IV Cont ONL Yon 10-24-2024 Abdomen/Pelvis W IV Cont ONLY Normal [facility] Absolute lymphocyte countOrd ered By: Jerry Hightower on 10-24-2024 Lymphocytes Auto (Unsp spec) [#/Vol] 1.10 10*3/uL 0.83-4.51 [facility] Absolute lymphocyte countOrd ered By: Papi Hernandez on 10-24-2024 Lymphocytes Auto (Unsp spec) [#/Vol] 1.26 10*3/uL 0.83-4.51 [facility] Absolute neutrophil countOrd ered By: Jerry Hightower on 10-24-2024 Neutrophils (Bld) [#/Vol] 6.7 10*3/uL 2.0-7.7 [facility] Absolute neutrophil countOrd ered By: Papi Hernandez on 10-24-2024 Neutrophils (Bld) [#/Vol] 6.5 10*3/uL 2.0-7.7 [facility] Anion gap in Serum or Plasma Ordered By: Jerry Hightower on 10-24-2024 Anion gap [Moles/Vol] 11 mmol/L 5-15 [facility] Anion gap in Serum or Plasma Ordered By: Papi Hernandez on 10-24-2024 Anion gap [Moles/Vol] 9 mmol/L 5- [facility] Automated lymphocyte count a s percentage of total leukocytesOrdered By: Jerry Hightower on 10-24-2024 Lymphocytes/100 WBC Auto (Unsp spec) 12.7 % Low [facility] Automated lymphocyte count a s percentage of total leukocytesOrdered By: Papi Hernandez on 10-24-2024 Lymphocytes/100 WBC Auto (Unsp spec) 14.4 % Low - [facility] BUN/creatinine ratioOrdered By: Jerry Hightower on 10-24-2024 Urea nitrogen/Creatinine [Mass ratio] 11.6 mg/mg 05-20 [facility] BUN/creatinine ratioOrdered By: Papi Hernandez on 10-24-2024 Urea nitrogen/Creatinine [Mass ratio] 12.0 mg/mg 05-20 [facility] Basophil percentageOrdered B y: Jerry Hightower on 10-24-2024 Basophils/100 WBC (Bld) 0.3 % 0-1 [facility] Basophil percentageOrdered B y: Papi Hernandez on 10-24-2024 Basophils/100 WBC (Bld) 0.3 % 0-1 [facility] Bilirubin Test strip Ql (U)O rdered By: Jerry Hightower on 10-24-2024 Bilirubin Ql (U) Negative Negative [facility] Bilirubin, totalOrdered By: Jerry Hightower on 10-24-2024 Bilirubin [Mass/Vol] 0.55 mg/dL 0.00-1.30 [facility] Bilirubin, totalOrdered By: Papi Hernandez on 10-24-2024 Bilirubin [Mass/Vol] 0.50 mg/dL 0.00-1.30 [facility] CBC W/Diff, Automatedon 09-30 Absolute Lymph 1.10 X10 3/uL Normal 0.83-4.51 [facility] Comment on above: Performed By: #### L 500.4050, L501.2450, L100.0100, L503.6005 ####[facility] [address] [place], [address] Absolute Neut 6.7 X10 3/uL Normal 2.0-7.7 [facility] Comment on above: Performed By: #### L 500.4050, L501.2450, L100.0100, L503.6005 ####[facility] [address] [place], [address] Basophils/100 WBC (Bld) 0.3 % Normal 0-1 [facility] Comment on above: Performed By: #### L 500.4050, L501.2450, L100.0100, L503.6005 ####[facility] [address] [place], [address] Eosinophils/100 WBC (Bld) 1.0 % Normal 0-5 [facility] Comment on above: Performed By: #### L 500.4050, L501.2450, L100.0100, L503.6005 ####[facility] [address] [place], [address] Erythrocyte distribution width (RBC) [Ratio] 12.4 % Normal 11.6-14.6 [facility] Comment on above: Performed By: #### L 500.4050, L501.2450, L100.0100, L503.6005 ####[facility] [address] [place], [address] Hematocrit (Bld) [Volume fraction] 37.0 % Low 40-54 [facility] Comment on above: Performed By: #### L 500.4050, L501.2450, L100.0100, L503.6005 ####[facility] [address] [place], [address] Hemoglobin (Bld) [Mass/Vol] 13.1 g/dL Normal 13.0-16.5 [facility] Comment on above: Performed By: #### L 500.4050, L501.2450, L100.0100, L503.6005 ####[facility] [address] [place], [address] IG% 0.500 Normal 0.0-0.9 [facility] Comment on above: Result Comment: IG% - Immature Granulocytes (promyelocytes, myelocytes andmetamyelocytes) > 1% indicates that a LEFT SHIFT is Present. Performed By: #### L 500.4050, L501.2450, L100.0100, L503.6005 ####[facility] [address] [place], [address] Lymphocytes/100 WBC (Bld) 12.7 % Low 19-41 [facility] Comment on above: Performed By: #### L 500.4050, L501.2450, L100.0100, L503.6005 ####[facility] [address] [place], [address] MCH (RBC) [Entitic mass] 30.8 pg Normal 27.0-32.0 [facility] Comment on above: Performed By: #### L 500.4050, L501.2450, L100.0100, L503.6005 ####[facility] [address] [place], [address] MCHC (RBC) [Mass/Vol] 35.4 g/dL Normal 32-36 [facility] Comment on above: Performed By: #### L 500.4050, L501.2450, L100.0100, L503.6005 ####[facility] [address] [place], [address] MCV (RBC) [Entitic vol] 87.1 fL Normal 80-94 [facility] Comment on above: Performed By: #### L 500.4050, L501.2450, L100.0100, L503.6005 ####[facility] [address] [place], [address] Monocytes/100 WBC (Bld) 8.4 % Normal 0-10 [facility] Comment on above: Performed By: #### L 500.4050, L501.2450, L100.0100, L503.6005 ####[facility] [address] [place], [address] Neutrophils/100 WBC (Bld) 77.1 % High 47-70 [facility] Comment on above: Performed By: #### L 500.4050, L501.2450, L100.0100, L503.6005 ####[facility] [address] [place], [address] Nucleated RBC (Bld) [#/Vol] 0 10*3/uL Normal 0-5 [facility] Comment on above: Performed By: #### L 500.4050, L501.2450, L100.0100, L503.6005 ####[facility] [address] [place], [address] Platelet mean volume (Bld) [Entitic vol] 9.0 fL Normal 6.2-12.0 [facility] Comment on above: Performed By: #### L 500.4050, L501.2450, L100.0100, L503.6005 ####[facility] [address] [place], [address] Platelets (Bld) [#/Vol] 307 10*3/uL Normal 150-450 [facility] Comment on above: Performed By: #### L 500.4050, L501.2450, L100.0100, L503.6005 ####[facility] [address] [place], [address] RBC (Bld) [#/Vol] 4.25 10*6/uL Low 4.6-6.2 [facility] Comment on above: Performed By: #### L 500.4050, L501.2450, L100.0100, L503.6005 ####[facility] [address] [place], [address] RDW SD 39.6 fl Normal 35.1-43.9 [facility] Comment on above: Performed By: #### L 500.4050, L501.2450, L100.0100, L503.6005 ####[facility] [address] [place], [address] WBC (Bld) [#/Vol] 8.7 10*3/uL Normal 4.4-11.0 [facility] Comment on above: Performed By: #### L 500.4050, L501.2450, L100.0100, L503.6005 ####[facility] [address] [place], [address] Absolute Lymph 1.26 X10 3/uL Normal 0.83-4.51 [facility] Comment on above: Performed By: #### L 900.0098, L504.2610, L100.0100, L500.4050 ####[facility] [address] [place], [address] Absolute Neut 6.5 X10 3/uL Normal 2.0-7.7 [facility] Comment on above: Performed By: #### L 900.0098, L504.2610, L100.0100, L500.4050 ####[facility] [address] [place], [address] Basophils/100 WBC (Bld) 0.3 % Normal 0-1 [facility] Comment on above: Performed By: #### L 900.0098, L504.2610, L100.0100, L500.4050 ####[facility] [address] [place], [address] Eosinophils/100 WBC (Bld) 1.6 % Normal 0-5 [facility] Comment on above: Performed By: #### L 900.0098, L504.2610, L100.0100, L500.4050 ####[facility] [address] [place], [address] Erythrocyte distribution width (RBC) [Ratio] 12.5 % Normal 11.6-14.6 [facility] Comment on above: Performed By: #### L 900.0098, L504.2610, L100.0100, L500.4050 ####[facility] [address] [place], [address] Hematocrit (Bld) [Volume fraction] 38.0 % Low 40-54 [facility] Comment on above: Performed By: #### L 900.0098, L504.2610, L100.0100, L500.4050 ####[facility] [address] [place], [address] Hemoglobin (Bld) [Mass/Vol] 13.2 g/dL Normal 13.0-16.5 [facility] Comment on above: Performed By: #### L 900.0098, L504.2610, L100.0100, L500.4050 ####[facility] [address] [place], [address] IG% 0.200 Normal 0.0-0.9 [facility] Comment on above: Result Comment: IG% - Immature Granulocytes (promyelocytes, myelocytes andmetamyelocytes) > 1% indicates that a LEFT SHIFT is Present. Performed By: #### L 900.0098, L504.2610, L100.0100, L500.4050 ####[facility] [address] [place], [address] Lymphocytes/100 WBC (Bld) 14.4 % Low 19-41 [facility] Comment on above: Performed By: #### L 900.0098, L504.2610, L100.0100, L500.4050 ####[facility] [address] [place], [address] MCH (RBC) [Entitic mass] 30.8 pg Normal 27.0-32.0 [facility] Comment on above: Performed By: #### L 900.0098, L504.2610, L100.0100, L500.4050 ####[facility] [address] [place], [address] MCHC (RBC) [Mass/Vol] 34.7 g/dL Normal 32-36 [facility] Comment on above: Performed By: #### L 900.0098, L504.2610, L100.0100, L500.4050 ####[facility] [address] [place], [address] MCV (RBC) [Entitic vol] 88.8 fL Normal 80-94 [facility] Comment on above: Performed By: #### L 900.0098, L504.2610, L100.0100, L500.4050 ####[facility] [address] [place], [address] Monocytes/100 WBC (Bld) 9.7 % Normal 0-10 [facility] Comment on above: Performed By: #### L 900.0098, L504.2610, L100.0100, L500.4050 ####[facility] [address] [place], [address] Neutrophils/100 WBC (Bld) 73.8 % High 47-70 [facility] Comment on above: Performed By: #### L 900.0098, L504.2610, L100.0100, L500.4050 ####[facility] [address] [place], [address] Nucleated RBC (Bld) [#/Vol] 0 10*3/uL Normal 0-5 [facility] Comment on above: Performed By: #### L 900.0098, L504.2610, L100.0100, L500.4050 ####[facility] [address] [place], [address] Platelet mean volume (Bld) [Entitic vol] 8.8 fL Normal 6.2-12.0 [facility] Comment on above: Performed By: #### L 900.0098, L504.2610, L100.0100, L500.4050 ####[facility] [address] [place], [address] Platelets (Bld) [#/Vol] 299 10*3/uL Normal 150-450 [facility] Comment on above: Performed By: #### L 900.0098, L504.2610, L100.0100, L500.4050 ####[facility] [address] [place], [address] RBC (Bld) [#/Vol] 4.28 10*6/uL Low 4.6-6.2 [facility] Comment on above: Performed By: #### L 900.0098, L504.2610, L100.0100, L500.4050 ####[facility] [address] [place], [address] RDW SD 40.6 fl Normal 35.1-43.9 [facility] Comment on above: Performed By: #### L 900.0098, L504.2610, L100.0100, L500.4050 ####[facility] [address] [place], [address] WBC (Bld) [#/Vol] 8.8 10*3/uL Normal 4.4-11.0 [facility] Comment on above: Performed By: #### L 900.0098, L504.2610, L100.0100, L500.4050 ####[facility] [address] [place], [address] Carbon dioxide, total [Moles /volume] in Central venous bloodOrdered By: Jerry Hightower on 10-24-2024 CO2 [Moles/Vol] 26.7 mmol/L 21.0-32.0 [facility] Carbon dioxide, total [Moles /volume] in Central venous bloodOrdered By: Papi Hernandez on 10-24-2024 CO2 [Moles/Vol] 26.7 mmol/L 21.0-32.0 [facility] Chloride assayOrdered By: Avinash Hightower on 10-24-2024 Chloride [Moles/Vol] 92 mmol/L Low 98-108 [facility] Chloride assayOrdered By: Santa Hernandez on 10-24-2024 Chloride [Moles/Vol] 94 mmol/L Low 98-108 [facility] Comprehensive Metabolic Prof ilon 10-24-2024 Albumin [Mass/Vol] 4.3 g/dL Normal 3.4-4.8 [facility] Comment on above: Performed By: #### L 500.4050, L501.2450, L100.0100, L503.6005 ####[facility] [address] [place], [address] Albumin/Globulin [Mass ratio] 1.4 {ratio} Normal 0.9-2.4 [facility] Comment on above: Performed By: #### L 500.4050, L501.2450, L100.0100, L503.6005 ####[facility] [address] [place], [address] ALK PHOS 103 U/L Normal 40-129 [facility] Comment on above: Performed By: #### L 500.4050, L501.2450, L100.0100, L503.6005 ####[facility] [address] [place], [address] ALT [Catalytic activity/Vol] 17 U/L Normal <=46 [facility] Comment on above: Performed By: #### L 500.4050, L501.2450, L100.0100, L503.6005 ####[facility] [address] [place], [address] AST [Catalytic activity/Vol] 27 U/L Normal <=37 [facility] Comment on above: Performed By: #### L 500.4050, L501.2450, L100.0100, L503.6005 ####[facility] [address] [place], [address] Bilirubin [Mass/Vol] 0.55 mg/dL Normal 0.00-1.30 [facility] Comment on above: Performed By: #### L 500.4050, L501.2450, L100.0100, L503.6005 ####[facility] [address] [place], [address] BUN/CRE 11.6 RATIO Normal 10-20 [facility] Comment on above: Performed By: #### L 500.4050, L501.2450, L100.0100, L503.6005 ####[facility] [address] [place], [address] Calcium [Mass/Vol] 9.2 mg/dL Normal 7.6-11.0 [facility] Comment on above: Performed By: #### L 500.4050, L501.2450, L100.0100, L503.6005 ####[facility] [address] [place], [address] Chloride [Moles/Vol] 92 mmol/L Low 98-108 [facility] Comment on above: Performed By: #### L 500.4050, L501.2450, L100.0100, L503.6005 ####[facility] [address] [place], [address] CO2 [Moles/Vol] 26.7 mmol/L Normal 21.0-32.0 [facility] Comment on above: Performed By: #### L 500.4050, L501.2450, L100.0100, L503.6005 ####[facility] [address] [place], [address] Creatinine [Mass/Vol] 0.94 mg/dL Normal 0.70-1.20 [facility] Comment on above: Performed By: #### L 500.4050, L501.2450, L100.0100, L503.6005 ####[facility] [address] [place], [address] ECRCL 56.56 ml/min Normal 50-250 [facility] Comment on above: Performed By: #### L 500.4050, L501.2450, L100.0100, L503.6005 ####[facility] [address] [place], [address] GAP 11 Normal 5-15 [facility] Comment on above: Performed By: #### L 500.4050, L501.2450, L100.0100, L503.6005 ####[facility] [address] [place], [address] GFR/1.73 sq M.predicted among non-blacks MDRD (S/P/Bld) [Vol rate/Area] 82 mL/min/{1.73_m2} Normal >60 [facility] Comment on above: Result Comment: mL/m in/1.73m2 CKD-EPI Creatinine Equation (2020) Performed By: #### L 500.4050, L501.2450, L100.0100, L503.6005 ####[facility] [address] [place], [address] Globulin (S) [Mass/Vol] 3.0 g/dL Normal 2.2-4.2 [facility] Comment on above: Performed By: #### L 500.4050, L501.2450, L100.0100, L503.6005 ####[facility] [address] [place], [address] Glucose [Mass/Vol] 105 mg/dL High 70-99 [facility] Comment on above: Performed By: #### L 500.4050, L501.2450, L100.0100, L503.6005 ####[facility] [address] [place], [address] Potassium [Moles/Vol] 3.8 mmol/L Normal 3.3-5.1 [facility] Comment on above: Performed By: #### L 500.4050, L501.2450, L100.0100, L503.6005 ####[facility] [address] [place], [address] Sodium [Moles/Vol] 130 mmol/L Low 133-145 [facility] Comment on above: Performed By: #### L 500.4050, L501.2450, L100.0100, L503.6005 ####[facility] [address] [place], [address] T PROT 7.3 g/dL Normal 5.9-8.4 [facility] Comment on above: Performed By: #### L 500.4050, L501.2450, L100.0100, L503.6005 ####[facility] [address] [place], [address] Urea nitrogen [Mass/Vol] 11 mg/dL Normal 4-19 [facility] Comment on above: Performed By: #### L 500.4050, L501.2450, L100.0100, L503.6005 ####[facility] [address] [place], [address] Albumin [Mass/Vol] 4.2 g/dL Normal 3.4-4.8 [facility] Comment on above: Performed By: #### L 900.0098, L504.2610, L100.0100, L500.4050 ####[facility] [address] [place], [address] Albumin/Globulin [Mass ratio] 1.4 {ratio} Normal 0.9-2.4 [facility] Comment on above: Performed By: #### L 900.0098, L504.2610, L100.0100, L500.4050 ####[facility] [address] [place], [address] ALK PHOS 100 U/L Normal 40-129 [facility] Comment on above: Performed By: #### L 900.0098, L504.2610, L100.0100, L500.4050 ####[facility] [id number] [place], [address] ALT [Catalytic activity/Vol] 16 U/L Normal <=46 [facility] Comment on above: Performed By: #### L 900.0098, L504.2610, L100.0100, L500.4050 ####[facility] [address] [place], [address] AST [Catalytic activity/Vol] 27 U/L Normal <=37 [facility] Comment on above: Performed By: #### L 900.0098, L504.2610, L100.0100, L500.4050 ####[facility] [address] [place], [address] Bilirubin [Mass/Vol] 0.50 mg/dL Normal 0.00-1.30 [facility] Comment on above: Performed By: #### L 900.0098, L504.2610, L100.0100, L500.4050 ####[facility] [address] [place], [address] BUN/CRE 12.0 RATIO Normal 10-20 [facility] Comment on above: Performed By: #### L 900.0098, L504.2610, L100.0100, L500.4050 ####[facility] [address] [place], [address] Calcium [Mass/Vol] 9.2 mg/dL Normal 7.6-11.0 [facility] Comment on above: Performed By: #### L 900.0098, L504.2610, L100.0100, L500.4050 ####[facility] [address] [place], [address] Chloride [Moles/Vol] 94 mmol/L Low 98-108 [facility] Comment on above: Performed By: #### L 900.0098, L504.2610, L100.0100, L500.4050 ####[facility] [address] [place], [address] CO2 [Moles/Vol] 26.7 mmol/L Normal 21.0-32.0 [facility] Comment on above: Performed By: #### L 900.0098, L504.2610, L100.0100, L500.4050 ####[facility] [address] [place], [address] Creatinine [Mass/Vol] 0.90 mg/dL Normal 0.70-1.20 [facility] Comment on above: Performed By: #### L 900.0098, L504.2610, L100.0100, L500.4050 ####[facility] [address] [place], [address] ECRCL 61.20 ml/min Normal 50-250 [facility] Comment on above: Performed By: #### L 900.0098, L504.2610, L100.0100, L500.4050 ####[facility] [address] [place], [address] GAP 9 Normal 5-15 [facility] Comment on above: Performed By: #### L 900.0098, L504.2610, L100.0100, L500.4050 ####[facility] [address] [place], [address] GFR/1.73 sq M.predicted among non-blacks MDRD (S/P/Bld) [Vol rate/Area] 86 mL/min/{1.73_m2} Normal >60 [facility] Comment on above: Result Comment: mL/m in/1.73m2 CKD-EPI Creatinine Equation (2020) Performed By: #### L 900.0098, L504.2610, L100.0100, L500.4050 ####[facility] [address] [place], [address] Globulin (S) [Mass/Vol] 2.9 g/dL Normal 2.2-4.2 [facility] Comment on above: Performed By: #### L 900.0098, L504.2610, L100.0100, L500.4050 ####[facility] [address] [place], [address] Glucose [Mass/Vol] 107 mg/dL High 70-99 [facility] Comment on above: Performed By: #### L 900.0098, L504.2610, L100.0100, L500.4050 ####[facility] [address] [place], [address] Potassium [Moles/Vol] 4.2 mmol/L Normal 3.3-5.1 [facility] Comment on above: Performed By: #### L 900.0098, L504.2610, L100.0100, L500.4050 ####[facility] [address] [place], [address] Sodium [Moles/Vol] 131 mmol/L Low 133-145 [facility] Comment on above: Performed By: #### L 900.0098, L504.2610, L100.0100, L500.4050 ####[facility] [address] [place], [address] T PROT 7.0 g/dL Normal 5.9-8.4 [facility] Comment on above: Performed By: #### L 900.0098, L504.2610, L100.0100, L500.4050 ####[facility] [address] [place], [address] Urea nitrogen [Mass/Vol] 11 mg/dL Normal 4-19 [facility] Comment on above: Performed By: #### L 900.0098, L504.2610, L100.0100, L500.4050 ####[facility] [address] [place], [address] Emergency Department Summary on 10-24-2024 Emergency Department Summary Normal [facility] Eosinophil percentageOrdered By: Jerry Hightower on 10-24-2024 Eosinophils/100 WBC (Bld) 1.0 % 0-5 [facility] Eosinophil percentageOrdered By: Papi Hernandez on 10-24-2024 Eosinophils/100 WBC (Bld) 1.6 % 0-5 [facility] Epithelial cells.squamous LM Ql (Urine sed)Ordered By: Jerry Hightower on 10-24-2024 Epithelial cells.squamous LM.HPF (Urine sed) [#/Area] 0 /[HPF] 0-5 [facility] Erythrocyte distribution wid th ratioOrdered By: Jerry Hightower on 10-24-2024 Erythrocyte distribution width (RBC) [Ratio] 12.4 % 11.6-14.6 [facility] Erythrocyte distribution wid th ratioOrdered By: Papi Hernandez on 10-24-2024 Erythrocyte distribution width (RBC) [Ratio] 12.5 % 11.6-14.6 [facility] Erythrocyte distribution wid th standard deviationOrdered By: Jerry Hightower on 10-24-2024 Erythrocyte distribution width (RBC) [Entitic vol] 39.6 fL 35.1-43.9 [facility] Erythrocyte distribution width (RBC) [Ratio] 39.6 fl 35.1-43.9 [facility] Erythrocyte distribution wid th standard deviationOrdered By: Papi Hernandez on 10-24-2024 Erythrocyte distribution width (RBC) [Entitic vol] 40.6 fL 35.1-43.9 [facility] Erythrocyte distribution width (RBC) [Ratio] 40.6 fl 35.1-43.9 [facility] Estimation of creatinine dunia aranceOrdered By: Jerry Hightower on 10-24-2024 Estimated Creatinine Clearance Calc 56.56 ml/min 50-250 [facility] Estimation of creatinine dunia aranceOrdered By: Papi Hernandez on 10-24-2024 Estimated Creatinine Clearance Calc 61.20 ml/min 50-250 [facility] GFR/1.73 sq M.predicted gregg g non-blacks MDRD (S/P/Bld) [Vol rate/Area]Ordered By: Jerry Hightower on 10-24-2024 Estimated GFR (MDRD) Non-Af Amer 82 >60 [facility] Comment on above: mL/min/1.73m2 CKD-EP I Creatinine Equation (2020) GFR/1.73 sq M.predicted gregg g non-blacks MDRD (S/P/Bld) [Vol rate/Area]Ordered By: Papi Hernandez on 10-24-2024 Estimated GFR (MDRD) Non-Af Amer 86 >60 [facility] Comment on above: mL/min/1.73m2 CKD-EP I Creatinine Equation (2020) Glomerular filtration rate ( GFR) estimation/1.73 sq m using serum, plasma, or whole bOrdered By: Jerry Hightower on 10-24-2024 GFR/1.73 sq M.predicted among non-blacks MDRD (S/P/Bld) [Vol rate/Area] 82 mL/min/{1.73_m2} >60 [facility] Comment on above: mL/min/1.73m2 CKD-EP I Creatinine Equation (2020) Glomerular filtration rate ( GFR) estimation/1.73 sq m using serum, plasma, or whole bOrdered By: Papi Hernandez on 10-24-2024 GFR/1.73 sq M.predicted among non-blacks MDRD (S/P/Bld) [Vol rate/Area] 86 mL/min/{1.73_m2} >60 [facility] Comment on above: mL/min/1.73m2 CKD-EP I Creatinine Equation (2020) Glucose Ql (U)Ordered By: Avinash Hightower on 10-24-2024 Urine Glucose (UA) Normal mg/dl Normal [facility] Hematocrit Auto (Bld) [Volum e fraction]Ordered By: Jerry Hightower on 10-24-2024 Hematocrit (Bld) [Volume fraction] 37.0 % Low 40-54 [facility] Hematocrit Auto (Bld) [Volum e fraction]Ordered By: Papi Hernandez on 10-24-2024 Hematocrit (Bld) [Volume fraction] 38.0 % Low 40-54 [facility] Hemoglobin measurementOrdere d By: Jerry Hightower on 10-24-2024 Hemoglobin (Bld) [Mass/Vol] 13.1 g/dL 13.0-16.5 [facility] Hemoglobin measurementOrdere d By: Papi Hernandez on 10-24-2024 Hemoglobin (Bld) [Mass/Vol] 13.2 g/dL 13.0-16.5 [facility] Immature granulocytes/100 WB C Auto (Bld)Ordered By: Jerry Hightower on 10-24-2024 Immature granulocytes/100 WBC (Bld) 0.500 % 0.0-0.9 [facility] Comment on above: IG% - Immature Granu locytes (promyelocytes, myelocytes and metamyelocytes) > 1% indicates that a LEFT SHIFT is Present. Immature granulocytes/100 WB C Auto (Bld)Ordered By: Papi Hernandez on 10-24-2024 Immature granulocytes/100 WBC (Bld) 0.200 % 0.0-0.9 [facility] Comment on above: IG% - Immature Granu locytes (promyelocytes, myelocytes and metamyelocytes) > 1% indicates that a LEFT SHIFT is Present. Ketones Test strip Ql (U)Ord ered By: Jerry Hightower on 10-24-2024 Ketones Ql (U) Negative Negative [facility] LDHon 10-24-2024 LDH 105 U/L Normal 87-241 [facility] Comment on above: Order Comment: 1 Performed By: #### L 900.0098, L504.2610, L100.0100, L500.4050 ####[facility] [address] [place], [place], [id number] Laboratory - Chemistry and C hemistry - challengeOrdered By: Jerry Hightower on 10-24-2024 AST [Catalytic activity/Vol] 27 U/L <38 [facility] Laboratory - Chemistry and C hemistry - challengeOrdered By: Papi Hernandez on 10-24-2024 AST [Catalytic activity/Vol] 27 U/L <38 [facility] Lactate dehydrogenase (LDH) measurementOrdered By: Papi Hernandez on 10-24-2024 LDH [Catalytic activity/Vol] 105 U/L 87-241 [facility] Lactic Acidon 10-24-2024 Lactate [Moles/Vol] 1.1 mmol/L Normal 0.0-2.0 [facility] Comment on above: Order Comment: Y Performed By: #### L 500.4050, L501.2450, L100.0100, L503.6005 ####[facility] [address] [place], [address] Lactic acid measurementOrder ed By: Jerry Hightower on 10-24-2024 Lactate [Moles/Vol] 1.1 mmol/L 0.0-2.0 [facility] Lipaseon 10-24-2024 Lipase [Catalytic activity/Vol] 28 U/L Normal 13-75 [facility] Comment on above: Result Comment: Debi vieyra note:LIPASE revised reference range effective 22.New Lipase methodology. Expected to produce lower valuesthan the previous assay method.NEW Reference Range: 13 - 75 U/L Performed By: #### L 500.4050, L501.2450, L100.0100, L503.6005 ####[facility] [address] [place], [place], [id number] Lipase measurementOrdered By : Jerry Hightower on 10-24-2024 Lipase [Catalytic activity/Vol] 28 U/L 13-75 [facility] Comment on above: Please note:LIPASE r evised reference range effective 22. New Lipase methodology. Expected to produce lower values than the previous assay method. NEW Reference Range: 13 - 75 U/L Lymphocytes Auto (Unsp spec) [#/Vol]Ordered By: Jerry Hightower on 10-24-2024 Lymphocytes (Bld) [#/Vol] 1.10 10*3/uL 0.83-4.51 [facility] Lymphocytes Auto (Unsp spec) [#/Vol]Ordered By: Papi Hernandez on 10-24-2024 Lymphocytes (Bld) [#/Vol] 1.26 10*3/uL 0.83-4.51 [facility] Lymphocytes/100 WBC Auto (Un sp spec)Ordered By: Jerry Hightower on 10-24-2024 Lymphocytes/100 WBC (Bld) 12.7 % Low 19-41 [facility] Lymphocytes/100 WBC Auto (Un sp spec)Ordered By: Papi Hernandez on 10-24-2024 Lymphocytes/100 WBC (Bld) 14.4 % Low 19-41 [facility] MCV (mean corpuscular volume ) determinationOrdered By: Jerry Hightower on 10-24-2024 MCV (RBC) [Entitic vol] 87.1 fL 80-94 [facility] MCV (mean corpuscular volume ) determinationOrdered By: Papi Hernandez on 10-24-2024 MCV (RBC) [Entitic vol] 88.8 fL 80-94 [facility] Mean corpuscular hemoglobin (MCH) determinationOrdered By: Jerry Hightower on 10-24-2024 MCH (RBC) [Entitic mass] 30.8 pg 27.0-32.0 [facility] Mean corpuscular hemoglobin (MCH) determinationOrdered By: Papi Hernandez on 10-24-2024 MCH (RBC) [Entitic mass] 30.8 pg 27.0-32.0 [facility] Mean corpuscular hemoglobin concentration (MCHC) determinationOrdered By: Jerry Hightower on 10-24-2024 MCHC (RBC) [Mass/Vol] 35.4 g/dL 32-36 [facility] Mean corpuscular hemoglobin concentration (MCHC) determinationOrdered By: Papi Hernandez on 10-24-2024 MCHC (RBC) [Mass/Vol] 34.7 g/dL 32-36 [facility] Mean platelet volume determi nationOrdered By: Jerry Hightower on 10-24-2024 Platelet mean volume (Bld) [Entitic vol] 9.0 fL 6.2-12.0 [facility] Mean platelet volume determi nationOrdered By: Papi Hernandez on 10-24-2024 Platelet mean volume (Bld) [Entitic vol] 8.8 fL 6.2-12.0 [facility] Microscopic analysis of urin e for red blood cells (RBC)Ordered By: Jerry Hightower on 10-24-2024 Microscopic analysis of urine for red blood cells (RBC) 0-5 SEEN /hpf 0-5 [facility] Urine RBC 0-5 SEEN /hpf 0-5 [facility] Miscellaneous procedureOrder ed By: Papi Hernandez on 10-24-2024 Miscellaneous Test Comment SEE SCANNED REPORT [facility] Monocyte percentageOrdered B y: Jerry Hightower on 10-24-2024 Monocytes/100 WBC (Bld) 8.4 % 0-10 [facility] Monocyte percentageOrdered B y: Papi Hernandez on 10-24-2024 Monocytes/100 WBC (Bld) 9.7 % 0-10 [facility] Mucus LM Ql (Urine sed)Order ed By: Jerry Hightower on 10-24-2024 Mucus Ql (Urine sed) 0 SEEN /hpf [facility] NATERAon 10-24-2024 NATURA SEE SCANNED REPORT Normal [facility] Comment on above: Performed By: #### L 900.0098, L504.2610, L100.0100, L500.4050 ####[facility] [address] [place], [place], [id number] Neutrophil percentageOrdered By: Jerry Hightower on 10-24-2024 Neutrophils/100 WBC (Bld) 77.1 % High 47-70 [facility] Neutrophil percentageOrdered By: Papi Hernandez on 10-24-2024 Neutrophils/100 WBC (Bld) 73.8 % High 47-70 [facility] Nitrite Test strip Ql (U)Ord ered By: Jerry Hightower on 10-24-2024 Nitrite Ql (U) Negative Negative [facility] No Panel InformationOrdered By: Jerry Hightower on 10-24-2024 27 U/L <38 [facility] No Panel InformationOrdered By: Papi Hernandez on 10-24-2024 27 U/L <38 [facility] Nucleated red blood cell per centageOrdered By: Jerry Hightower on 10-24-2024 Nucleated RBC/100 WBC (Bld) [Ratio] 0 % 0-5 [facility] Nucleated red blood cell per centageOrdered By: Papi Hernandez on 10-24-2024 Nucleated RBC/100 WBC (Bld) [Ratio] 0 % 0-5 [facility] Platelet countOrdered By: Avinash Hightower on 10-24-2024 Platelets (Bld) [#/Vol] 307 10*3/uL 150-450 [facility] Platelet countOrdered By: Santa Hernandez on 10-24-2024 Platelets (Bld) [#/Vol] 299 10*3/uL 150-450 [facility] Potassium (Unsp spec) [Mass/ Vol]Ordered By: Jerry Hightower on 10-24-2024 Potassium [Moles/Vol] 3.8 mmol/L 3.3-5.1 [facility] Potassium (Unsp spec) [Mass/ Vol]Ordered By: Papi Hernandez on 10-24-2024 Potassium [Moles/Vol] 4.2 mmol/L 3.3-5.1 [facility] Potassium measurement (mass/ volume)Ordered By: Jerry Hightower on 10-24-2024 Potassium (Unsp spec) [Mass/Vol] 3.8 mmol/L 3.3-5.1 [facility] Potassium measurement (mass/ volume)Ordered By: Papi Hernandez on 10-24-2024 Potassium (Unsp spec) [Mass/Vol] 4.2 mmol/L 3.3-5.1 [facility] Protein Test strip Ql (U)Ord ered By: Jerry Hightower on 10-24-2024 Protein Ql (U) 15 mg/dl High Negative [facility] RBC Auto (Bld) [#/Vol]Ordere d By: Jerry Hightower on 10-24-2024 RBC (Bld) [#/Vol] 4.25 10*6/uL Low 4.6-6.2 [facility] RBC Auto (Bld) [#/Vol]Ordere d By: Papi Hernandez on 10-24-2024 RBC (Bld) [#/Vol] 4.28 10*6/uL Low 4.6-6.2 [facility] Serum creatinine measurement (mass/volume)Ordered By: Jerry Hightower on 10-24-2024 Creatinine [Mass/Vol] 0.94 mg/dL 0.70-1.20 [facility] Serum creatinine measurement (mass/volume)Ordered By: Papi Hernandez on 10-24-2024 Creatinine [Mass/Vol] 0.90 mg/dL 0.70-1.20 [facility] Serum globulin measurementOr dered By: Jerry Hightower on 10-24-2024 Globulin (S) [Mass/Vol] 3.0 g/dL 2.2-4.2 [facility] Serum globulin measurementOr dered By: Papi Hrenandez on 10-24-2024 Globulin (S) [Mass/Vol] 2.9 g/dL 2.2-4.2 [facility] Serum glucose measurement (m ass/volume)Ordered By: Jerry Hightower on 10-24-2024 Glucose [Mass/Vol] 105 mg/dL High 70-99 [facility] Serum glucose measurement (m ass/volume)Ordered By: Papi Hernandez on 10-24-2024 Glucose [Mass/Vol] 107 mg/dL High 70-99 [facility] Serum or plasma alanine carrion otransferase (ALT) measurementOrdered By: Jerry Hightower on 10-24-2024 ALT [Catalytic activity/Vol] 17 U/L <47 [facility] Serum or plasma alanine carrion otransferase (ALT) measurementOrdered By: Papi Hernandez on 10-24-2024 ALT [Catalytic activity/Vol] 16 U/L <47 [facility] Serum or plasma albumin shagufta urement (mass/volume)Ordered By: Jerry Hightower on 10-24-2024 Albumin [Mass/Vol] 4.3 g/dL 3.4-4.8 [facility] Serum or plasma albumin shagufta urement (mass/volume)Ordered By: Papi Hernandez on 10-24-2024 Albumin [Mass/Vol] 4.2 g/dL 3.4-4.8 [facility] Serum or plasma albumin/glob ulin mass ratioOrdered By: Jerry Hightower on 10-24-2024 Albumin/Globulin [Mass ratio] 1.4 {ratio} 0.9-2.4 [facility] Serum or plasma albumin/glob ulin mass ratioOrdered By: Papi Hernandez on 10-24-2024 Albumin/Globulin [Mass ratio] 1.4 {ratio} 0.9-2.4 [facility] Serum or plasma alkaline airam sphatase measurementOrdered By: Jerry Hightower on 10-24-2024 ALP [Catalytic activity/Vol] 103 U/L 40-129 [facility] Serum or plasma alkaline airam sphatase measurementOrdered By: Papi Hernandez on 10-24-2024 ALP [Catalytic activity/Vol] 100 U/L 40-129 [facility] Serum or plasma calcium shagufta urement (mass/volume)Ordered By: Jerry Hightower on 10-24-2024 Calcium [Mass/Vol] 9.2 mg/dL 7.6-11.0 [facility] Serum or plasma calcium shagufta urement (mass/volume)Ordered By: Papi Hernandez on 10-24-2024 Calcium [Mass/Vol] 9.2 mg/dL 7.6-11.0 [facility] Serum or plasma carcinoembry onic antigen measurement (mass/volume)Ordered By: Papi Hernandez on 10-24-2024 Carcinoembryonic Ag [Mass/Vol] 25.2 ng/mL High 0.0-4.7 [facility] Comment on above: Nonsmokers <3.9 Smok ers <5.6[employer] Electrochemiluminescence Immunoassay(ECLIA)Values obtained with different assay methods or kitscannot be used interchangeably. Results cannot beinterpreted as absolute evidence of the presence orabsence of malignant disease.Performed at: [address] [id number] Director: Jian Paredes PhD, Phone: [phone] Serum or plasma urea nitroge n measurement (mass/volume)Ordered By: Jerry Hightower on 10-24-2024 Urea nitrogen [Mass/Vol] 11 mg/dL 11-17 [facility] Serum or plasma urea nitroge n measurement (mass/volume)Ordered By: Papi Hernandez on 10-24-2024 Urea nitrogen [Mass/Vol] 11 mg/dL 11-17 [facility] Sodium levelOrdered By: Natalie Hightower on 10-24-2024 Sodium [Moles/Vol] 130 mmol/L Low 133-145 [facility] Sodium levelOrdered By: Stephan Hernandez on 10-24-2024 Sodium [Moles/Vol] 131 mmol/L Low 133-145 [facility] Squamous epithelial cells de tection in urine sediment by light microscopyOrdered By: Jerry Hightower on 10-24-2024 Epithelial cells.squamous LM Ql (Urine sed) 0-5 SEEN /hpf 0-5 [facility] Testicular with Arterial Tommy won 10-24-2024 Testicular with Arterial Flow Normal [facility] Total proteinOrdered By: Renay Hightower on 10-24-2024 Protein [Mass/Vol] 7.3 g/dL 5.9-8.4 [facility] Total proteinOrdered By: Thang Hernandez on 10-24-2024 Protein [Mass/Vol] 7.0 g/dL 5.9-8.4 [facility] Urinalysis, Completeon 10-24 EPI,SQUAMOUS 0-5 SEEN Normal 0-5 [facility] Comment on above: Order Comment: CLEAN CATCH Performed By: #### L 400.0001 ####[facility] [address] [place], [place], [id number] RBC 0-5 SEEN Normal 0-5 [facility] Comment on above: Order Comment: CLEAN CATCH Performed By: #### L 400.0001 ####[facility] [address] [place], [address] BACTERIA 0 SEEN Normal None Seen [facility] Comment on above: Order Comment: CLEAN CATCH Performed By: #### L 400.0001 ####[facility] [address] [place], [address] Mucus Ql (Urine sed) 0 SEEN Normal [facility] Comment on above: Order Comment: CLEAN CATCH Performed By: #### L 400.0001 ####[facility] [address] [place], [address] WBC 0 SEEN Normal 0-5 [facility] Comment on above: Order Comment: CLEAN CATCH Performed By: #### L 400.0001 ####[facility] [address] [place], [place], [address] Urine blood detectionOrdered By: Jerry Hightower on 10-24-2024 Urine Occult Blood Negative Negative [facility] Urine clarityOrdered By: Renay Hightower on 10-24-2024 Clarity (U) Clear Clear [facility] Urine color determinationOrd ered By: Jerry Hightower on 10-24-2024 Color (U) Straw Yellow [facility] Urine glucose detectionOrder ed By: Jerry Hightower on 10-24-2024 Glucose Ql (U) Normal mg/dl Normal [facility] Urine leukocyte esterase det ection by dipstickOrdered By: Jerry Hightower on 10-24-2024 Leukocyte esterase Test strip Ql (U) Negative Negative [facility] Urine pHOrdered By: Jerry garza on 10-24-2024 pH (U) 8.0 [pH] 5.0 - 8.0 [facility] Urine sediment bacteria coun t by microscopy (number/high power field)Ordered By: Jerry Hightower on 10-24-2024 Bacteria LM.HPF (Urine sed) [#/Area] 0 /[HPF] None Seen [facility] Urine specific gravity measu rementOrdered By: Jerry Hightower on 10-24-2024 Specific gravity (U) [Rel density] 1.010 1.002-1.030 [facility] Urine urobilinogen measureme ntOrdered By: Jerry Hightower on 10-24-2024 Urobilinogen Ql (U) Normal mg/dl Normal [facility] Urobilinogen Ql (U)Ordered B y: Jerry Hightower on 10-24-2024 Urine Urobilinogen Normal mg/dl Normal [facility] White blood cell (WBC) count Ordered By: Jerry Hightower on 10-24-2024 WBC (Bld) [#/Vol] 8.7 10*3/uL 4.4-11.0 [facility] White blood cell (WBC) count Ordered By: Papi Hernandez on 10-24-2024 WBC (Bld) [#/Vol] 8.8 10*3/uL 4.4-11.0 [facility] White blood cell countOrdere d By: Jerry Hightower on 10-24-2024 Urine WBC 0 SEEN /hpf 0-5 [facility] White blood cell count 0 SEEN /hpf 0-5 [facility] Amorphous sediment detection in urine sediment by light microscopyOrdered By: Malinda Webster on 10-17-2024 Amorphous sediment LM Ql (Urine sed) 3+ [facility] Anion gap in Serum or Plasma Ordered By: Malinda Webster on 10-17-2024 Anion gap [Moles/Vol] 9 mmol/L 5-15 [facility] BUN/creatinine ratioOrdered By: Malinda Webster on 10-17-2024 Urea nitrogen/Creatinine [Mass ratio] 15.2 mg/mg 10- [facility] Basic Metabolic Profile (BMP )on 10-17-2024 BUN/CRE 15.2 RATIO Normal - [facility] Comment on above: Performed By: #### L 500.2500, L400.0001 ####[facility] [address] [place], [address] Calcium [Mass/Vol] 9.7 mg/dL Normal 7.6-11.0 [facility] Comment on above: Performed By: #### L 500.2500, L400.0001 ####[facility] [address] [place], [address] Chloride [Moles/Vol] 93 mmol/L Low 98-108 [facility] Comment on above: Performed By: #### L 500.2500, L400.0001 ####[facility] [address] [place], [address] CO2 [Moles/Vol] 27.4 mmol/L Normal 21.0-32.0 [facility] Comment on above: Performed By: #### L 500.2500, L400.0001 ####[facility] [address] [place], [address] Creatinine [Mass/Vol] 1.06 mg/dL Normal 0.70-1.20 [facility] Comment on above: Performed By: #### L 500.2500, L400.0001 ####[facility] [address] [place], [address] GAP 9 Normal 5-15 [facility] Comment on above: Performed By: #### L 500.2500, L400.0001 ####[facility] [address] [place], [address] GFR/1.73 sq M.predicted among non-blacks MDRD (S/P/Bld) [Vol rate/Area] 71 mL/min/{1.73_m2} Normal >60 [facility] Comment on above: Result Comment: mL/m in/1.73m2 CKD-EPI Creatinine Equation (2020) Performed By: #### L 500.2500, L400.0001 ####[facility] [address] [place], [address] Glucose [Mass/Vol] 100 mg/dL High 70-99 [facility] Comment on above: Performed By: #### L 500.2500, L400.0001 ####[facility] [address] [place], [address] Potassium [Moles/Vol] 4.5 mmol/L Normal 3.3-5.1 [facility] Comment on above: Performed By: #### L 500.2500, L400.0001 ####[facility] [address] [place], [address] Sodium [Moles/Vol] 130 mmol/L Low 133-145 [facility] Comment on above: Performed By: #### L 500.2500, L400.0001 ####[facility] [address] [place], [address] Urea nitrogen [Mass/Vol] 16 mg/dL Normal - [facility] Comment on above: Performed By: #### L 500.2500, L400.0001 ####[facility] [address] [place], [address] Bilirubin Test strip Ql (U)O rdered By: Malinda Webster on 10-17-2024 Bilirubin Ql (U) Negative Negative [facility] Carbon dioxide, total [Moles /volume] in Central venous bloodOrdered By: Malinda Webster on 10-17-2024 CO2 [Moles/Vol] 27.4 mmol/L 21.0-32.0 [facility] Cardiology Visit Reporton Cardiology Visit Report Normal [facility] Chloride assayOrdered By: Santa Webster on 10-17-2024 Chloride [Moles/Vol] 93 mmol/L Low 98-108 [facility] Epithelial cells.squamous LM Ql (Urine sed)Ordered By: Malinda Webster on 10-17-2024 Epithelial cells.squamous LM.HPF (Urine sed) [#/Area] 0 /[HPF] 0-5 [facility] GFR/1.73 sq M.predicted gregg g non-blacks MDRD (S/P/Bld) [Vol rate/Area]Ordered By: Malinda Webster on 10-17-2024 Estimated GFR (MDRD) Non-Af Amer 71 >60 [facility] Comment on above: mL/min/1.73m2 CKD-EP I Creatinine Equation (2020) Glomerular filtration rate ( GFR) estimation/1.73 sq m using serum, plasma, or whole bOrdered By: Malinda Webster on 10-17-2024 GFR/1.73 sq M.predicted among non-blacks MDRD (S/P/Bld) [Vol rate/Area] 71 mL/min/{1.73_m2} >60 [facility] Comment on above: mL/min/1.73m2 CKD-EP I Creatinine Equation (2020) Glucose Ql (U)Ordered By: Santa Webster on 10-17-2024 Urine Glucose (UA) Normal mg/dl Normal [facility] Ketones Test strip Ql (U)Ord ered By: Malinda Webster on 10-17-2024 Ketones Ql (U) Negative Negative [facility] Microscopic analysis of urin e for red blood cells (RBC)Ordered By: Malinda Webster on 10-17-2024 Microscopic analysis of urine for red blood cells (RBC) 0 SEEN /hpf 0-5 [facility] Urine RBC 0 SEEN /hpf 0-5 [facility] Mucus LM Ql (Urine sed)Order ed By: Malinda Webster on 10-17-2024 Mucus Ql (Urine sed) 0 SEEN /hpf [facility] Nitrite Test strip Ql (U)Ord ered By: Malinda Webster on 10-17-2024 Nitrite Ql (U) Negative Negative [facility] Potassium (Unsp spec) [Mass/ Vol]Ordered By: Malinda Webster on 10-17-2024 Potassium [Moles/Vol] 4.5 mmol/L 3.3-5.1 [facility] Potassium measurement (mass/ volume)Ordered By: Malinda Webster on 10-17-2024 Potassium (Unsp spec) [Mass/Vol] 4.5 mmol/L 3.3-5.1 [facility] Protein Test strip Ql (U)Ord ered By: Malinda Webster on 10-17-2024 Protein Ql (U) 30 mg/dl High Negative [facility] Serum creatinine measurement (mass/volume)Ordered By: Malinda Webster on 10-17-2024 Creatinine [Mass/Vol] 1.06 mg/dL 0.70-1.20 [facility] Serum glucose measurement (m ass/volume)Ordered By: Malinda Webster on 10-17-2024 Glucose [Mass/Vol] 100 mg/dL High 70-99 [facility] Serum or plasma calcium shagufta urement (mass/volume)Ordered By: Malinda Webster on 10-17-2024 Calcium [Mass/Vol] 9.7 mg/dL 7.6-11.0 [facility] Serum or plasma urea nitroge n measurement (mass/volume)Ordered By: Malinda Webster on 10-17-2024 Urea nitrogen [Mass/Vol] 16 mg/dL 4-19 [facility] Sodium levelOrdered By: Malinda Webster on 10-17-2024 Sodium [Moles/Vol] 130 mmol/L Low 133-145 [facility] Squamous epithelial cells de tection in urine sediment by light microscopyOrdered By: Malinda Webster on 10-17-2024 Epithelial cells.squamous LM Ql (Urine sed) 0 SEEN /hpf 0-5 [facility] Urinalysis, Completeon 10-17 AMORPHOUS 3+ Normal [facility] Comment on above: Order Comment: BOB CTOR TO SPECIFY Performed By: #### L 500.2500, L400.0001 ####[facility] [address] [place] [address] BACTERIA 2+ /hpf Normal None Seen [facility] Comment on above: Order Comment: BOB CTOR TO SPECIFY Performed By: #### L 500.2500, L400.0001 ####[facility] [address] [place], [address] RBC 0 SEEN Normal 0-[address] [place] [address] Comment on above: Order Comment: BOB CTOR TO SPECIFY Performed By: #### L 500.2500, L400.0001 ####[facility] [address] [place], [address] EPI,SQUAMOUS 0 SEEN Normal 0-5 [facility] Comment on above: Order Comment: BOB CTOR TO SPECIFY Performed By: #### L 500.2500, L400.0001 ####[facility] [address] [place], [address] Mucus Ql (Urine sed) 0 SEEN Normal [facility] Comment on above: Order Comment: BOB CTOR TO SPECIFY Performed By: #### L 500.2500, L400.0001 ####[facility] [address] [place], [address] WBC 0 SEEN Normal 0-5 [facility] Comment on above: Order Comment: BOB CTOR TO SPECIFY Performed By: #### L 500.2500, L400.0001 ####[facility] [address] [place], [address] Urine blood detectionOrdered By: Malinda Webster on 10-17-2024 Urine Occult Blood Negative Negative [facility] Urine clarityOrdered By: Marcelo Webster on 10-17-2024 Clarity (U) Sl. Cloudy Clear [facility] Urine color determinationOrd ered By: Malinda Webster on 10-17-2024 Color (U) Yellow Yellow [facility] Urine glucose detectionOrder ed By: Malinda Webster on 10-17-2024 Glucose Ql (U) Normal mg/dl Normal [facility] Urine leukocyte esterase det ection by dipstickOrdered By: Malinda Webster on 10-17-2024 Leukocyte esterase Test strip Ql (U) Negative Negative [facility] Urine pHOrdered By: Malinda vallejo on 10-17-2024 pH (U) 8.0 [pH] 5.0 - 8.0 [facility] Urine sediment bacteria coun t by microscopy (number/high power field)Ordered By: Malinda Webster on 10-17-2024 Bacteria LM.HPF (Urine sed) [#/Area] 2 /[HPF] None Seen [facility] Urine specific gravity measu rementOrdered By: Malinda Webster on 10-17-2024 Specific gravity (U) [Rel density] 1.015 1.002-1.030 [facility] Urine urobilinogen measureme ntOrdered By: Malinda Webster on 10-17-2024 Urobilinogen Ql (U) Normal mg/dl Normal [facility] Urobilinogen Ql (U)Ordered B y: Malinda Webster on 10-17-2024 Urine Urobilinogen Normal mg/dl Normal [facility] White blood cell countOrdere d By: Malinda Webster on 10-17-2024 Urine WBC 0 SEEN /hpf 0-5 [facility] White blood cell count 0 SEEN /hpf 0-5 [facility] Absolute lymphocyte countOrd ered By: Mariela Olson on 09-05-2024 Lymphocytes Auto (Unsp spec) [#/Vol] 1.41 10*3/uL 0.83-4.51 [facility] Absolute neutrophil countOrd ered By: Mariela Olson on 09-05-2024 Neutrophils (Bld) [#/Vol] 4.1 10*3/uL 2.0-7.7 [facility] Albumin to globulin ratioOrd ered By: [facility] Health[facility] on 09-05-2024 Albumin/Globulin [Mass ratio] 1.0 {ratio} 0.9-2.4 [facility] Automated lymphocyte count a s percentage of total leukocytesOrdered By: [facility] Health[facility] on 09-05-2024 Lymphocytes/100 WBC Auto (Unsp spec) 22.2 % 19-41 [facility] Basophil percentageOrdered B y: [facility] on 09-05-2024 Basophils/100 WBC (Bld) 0.3 % 0-1 [facility] Bilirubin, totalOrdered By: [facility] on 09-05-2024 Bilirubin [Mass/Vol] 0.80 mg/dL 0.20-1.00 [facility] Comment on above: For patients on eltr ombopag therapy, use of Dimension [place] TBIL is not recommended. Blood urea nitrogen (BUN)/cr eatinine ratioOrdered By: [facility] on 09-05-2024 Urea nitrogen/Creatinine [Mass ratio] 13.0 mg/mg 10-20 [facility] CBC W/Diff, Automatedon Absolute Lymph 1.41 X10 3/uL Normal 0.83-4.51 [facility] Comment on above: Performed By: #### L 500.4050, L100.0100 ####[facility] [address] [place], [address] Absolute Neut 4.1 X10 3/uL Normal 2.0-7.7 [facility] Comment on above: Performed By: #### L 500.4050, L100.0100 ####[facility] [address] [place], [address] Basophils/100 WBC (Bld) 0.3 % Normal 0-1 [facility] Comment on above: Performed By: #### L 500.4050, L100.0100 ####[facility] [address] [place], [address] Eosinophils/100 WBC (Bld) 3.1 % Normal 0-5 [facility] Comment on above: Performed By: #### L 500.4050, L100.0100 ####[facility] [address] [place], [address] Erythrocyte distribution width (RBC) [Ratio] 13.3 % Normal 11.6-14.6 [facility] Comment on above: Performed By: #### L 500.4050, L100.0100 ####[facility] [address] [place], [address] Hematocrit (Bld) [Volume fraction] 39.9 % Low 40-54 [facility] Comment on above: Performed By: #### L 500.4050, L100.0100 ####[facility] [address] [place], [address] Hemoglobin (Bld) [Mass/Vol] 13.3 g/dL Normal 13.0-16.5 [facility] Comment on above: Performed By: #### L 500.4050, L100.0100 ####[facility] [address] [place], [address] IG% 0.200 Normal 0.0-0.9 [facility] Comment on above: Result Comment: IG% - Immature Granulocytes (promyelocytes, myelocytes andmetamyelocytes) > 1% indicates that a LEFT SHIFT is Present. Performed By: #### L 500.4050, L100.0100 ####[facility] [address] [place], [address] Lymphocytes/100 WBC (Bld) 22.2 % Normal 19-41 [facility] Comment on above: Performed By: #### L 500.4050, L100.0100 ####[facility] [address] [place], [address] MCH (RBC) [Entitic mass] 29.6 pg Normal 27.0-32.0 [facility] Comment on above: Performed By: #### L 500.4050, L100.0100 ####[facility] [address] [place], [address] MCHC (RBC) [Mass/Vol] 33.3 g/dL Normal 32-36 [facility] Comment on above: Performed By: #### L 500.4050, L100.0100 ####[facility] [address] [place], [address] MCV (RBC) [Entitic vol] 88.7 fL Normal 80-94 [facility] Comment on above: Performed By: #### L 500.4050, L100.0100 ####[facility] [address] [place], [address] Monocytes/100 WBC (Bld) 10.2 % High 0-10 [facility] Comment on above: Performed By: #### L 500.4050, L100.0100 ####[facility] [address] [place], [address] Neutrophils/100 WBC (Bld) 64.0 % Normal 47-70 [facility] Comment on above: Performed By: #### L 500.4050, L100.0100 ####[facility] [address] [place], [address] Nucleated RBC (Bld) [#/Vol] 0 10*3/uL Normal 0-5 [facility] Comment on above: Performed By: #### L 500.4050, L100.0100 ####[facility] [address] [place], [address] Platelet mean volume (Bld) [Entitic vol] 9.8 fL Normal 6.2-12.0 [facility] Comment on above: Performed By: #### L 500.4050, L100.0100 ####[facility] [address] [place], [address] Platelets (Bld) [#/Vol] 274 10*3/uL Normal 150-450 [facility] Comment on above: Performed By: #### L 500.4050, L100.0100 ####[facility] [address] [place], [address] RBC (Bld) [#/Vol] 4.50 10*6/uL Low 4.6-6.2 [facility] Comment on above: Performed By: #### L 500.4050, L100.0100 ####[facility] [address] [place], [address] RDW SD 43.2 fl Normal 35.1-43.9 [facility] Comment on above: Performed By: #### L 500.4050, L100.0100 ####[facility] [address] [place], [address] WBC (Bld) [#/Vol] 6.4 10*3/uL Normal 4.4-11.0 [facility] Comment on above: Performed By: #### L 500.4050, L100.0100 ####[facility] [address] [place], [address] Carbon dioxide measurementOr dered By: Mariela Olson on 09-05-2024 CO2 [Moles/Vol] 30.0 mmol/L 21.0-32.0 [facility] Chloride measurementOrdered By: Mariela Olson on 09-05-2024 Chloride [Moles/Vol] 98 mmol/L 98-107 [facility] Comprehensive Metabolic Prof ilon 09-05-2024 Albumin [Mass/Vol] 3.8 g/dL Normal 3.2-5.0 [facility] Comment on above: Performed By: #### L 500.4050, L100.0100 ####[facility] [address] [place], [address] Albumin/Globulin [Mass ratio] 1.0 {ratio} Normal 0.9-2.4 [facility] Comment on above: Performed By: #### L 500.4050, L100.0100 ####[facility] [address] [place], [address] ALK P 106 U/L Normal 45-117 [facility] Comment on above: Performed By: #### L 500.4050, L100.0100 ####[facility] [address] [place], [address] ALT [Catalytic activity/Vol] 30 U/L Normal 16-61 [facility] Comment on above: Performed By: #### L 500.4050, L100.0100 ####[facility] [address] [place], [address] AST [Catalytic activity/Vol] 27 U/L Normal 15-37 [facility] Comment on above: Performed By: #### L 500.4050, L100.0100 ####[facility] [address] [place], [address] Bilirubin [Mass/Vol] 0.80 mg/dL Normal 0.20-1.00 [facility] Comment on above: Result Comment: For patients on eltrombopag therapy, use of Dimension [place] TBIL is not recommended. Performed By: #### L 500.4050, L100.0100 ####[facility] [address] [place], [address] BUN/CRE 13.0 RATIO Normal 10-20 [facility] Comment on above: Performed By: #### L 500.4050, L100.0100 ####[facility] [address] [place], [address] CA,Total 9.8 mg/dL Normal 8.5-10.1 [facility] Comment on above: Performed By: #### L 500.4050, L100.0100 ####[facility] [address] [place], [address] Chloride [Moles/Vol] 98 mmol/L Normal 98-107 [facility] Comment on above: Performed By: #### L 500.4050, L100.0100 ####[facility] [address] [place], [address] CO2 [Moles/Vol] 30.0 mmol/L Normal 21.0-32.0 [facility] Comment on above: Performed By: #### L 500.4050, L100.0100 ####[facility] [address] [place], [address] Creatinine [Mass/Vol] 1.23 mg/dL Normal 0.70-1.30 [facility] Comment on above: Result Comment: The validity of the calculated GFR GFRAA in patients over70 years has not been determined. Clinical correlation isessential. Performed By: #### L 500.4050, L100.0100 ####[facility] [address] [place], [address] EST GFR - AA 73 mL/min Normal >60 [facility] Comment on above: Result Comment: Afri can Egyptian GFR Calc Performed By: #### L 500.4050, L100.0100 ####[facility] [address] [place], [address] GAP 7 Normal 5-15 [facility] Comment on above: Performed By: #### L 500.4050, L100.0100 ####[facility] [address] [place], [address] GFR/1.73 sq M.predicted among non-blacks MDRD (S/P/Bld) [Vol rate/Area] 60 mL/min/{1.73_m2} Normal >60 [facility] Comment on above: Result Comment: Non- GFR Calc Performed By: #### L 500.4050, L100.0100 ####[facility] [address] [place], [address] Globulin (S) [Mass/Vol] 3.7 g/dL Normal 2.2-4.2 [facility] Comment on above: Performed By: #### L 500.4050, L100.0100 ####[facility] [address] [place], [address] Glucose [Mass/Vol] 99 mg/dL Normal 74-106 [facility] Comment on above: Performed By: #### L 500.4050, L100.0100 ####[facility] [address] [place], [address] Potassium [Moles/Vol] 4.3 mmol/L Normal 3.5-5.1 [facility] Comment on above: Performed By: #### L 500.4050, L100.0100 ####[facility] [address] [place], [address] Sodium [Moles/Vol] 135 mmol/L Low 136-145 [facility] Comment on above: Performed By: #### L 500.4050, L100.0100 ####[facility] [address] [place], [address] T PROT 7.5 g/dL Normal 6.4-8.2 [facility] Comment on above: Performed By: #### L 500.4050, L100.0100 ####[facility] [address] [place], [address] Urea nitrogen [Mass/Vol] 16 mg/dL Normal 7-18 [facility] Comment on above: Performed By: #### L 500.4050, L100.0100 ####[facility] [address] [place], [address] Eosinophil percentageOrdered By: Mariela Shahram on 09-05-2024 Eosinophils/100 WBC (Bld) 3.1 % 0-5 [facility] Erythrocyte distribution wid th ratioOrdered By: Alvarado Shahram on 09-05-2024 Erythrocyte distribution width (RBC) [Ratio] 13.3 % 11.6-14.6 [facility] Erythrocyte distribution wid th standard deviationOrdered By: Alvarado Shahram on 09-05-2024 Erythrocyte distribution width (RBC) [Entitic vol] 43.2 fL 35.1-43.9 [facility] Erythrocyte distribution width (RBC) [Ratio] 43.2 fl 35.1-43.9 [facility] Estimated glomerular filtrat ion rate (GFR) AmericanOrdered By: Marielabruce Olson on 09-05-2024 Estimated GFR (MDRD) Amer 73 mL/min >60 [facility] Comment on above: GFR Calc Glomerular filtration rate ( GFR) estimationOrdered By: Marielabruce Olson on 09-05-2024 Estimated GFR (MDRD) Non-Af Amer 60 mL/min >60 [facility] Comment on above: Non- GFR Calc GFR/1.73 sq M.predicted among non-blacks MDRD (S/P/Bld) [Vol rate/Area] 60 mL/min/{1.73_m2} >60 [facility] Comment on above: Non- GFR Calc Glucose measurementOrdered B y: Mariela Olson on 09-05-2024 Glucose [Mass/Vol] 99 mg/dL 74-106 [facility] Hematocrit Auto (Bld) [Volum e fraction]Ordered By: Marielabruce Olson on 09-05-2024 Hematocrit (Bld) [Volume fraction] 39.9 % Low 40-54 [facility] Hemoglobin measurementOrdere d By: Mariela Olson on 09-05-2024 Hemoglobin (Bld) [Mass/Vol] 13.3 g/dL 13.0-16.5 [facility] Immature granulocytes/100 WB C Auto (Bld)Ordered By: Marielabruce Olson on 09-05-2024 Immature granulocytes/100 WBC (Bld) 0.200 % 0.0-0.9 [facility] Comment on above: IG% - Immature Granu locytes (promyelocytes, myelocytes and metamyelocytes) > 1% indicates that a LEFT SHIFT is Present. Laboratory - Chemistry and C hemistry - challengeOrdered By: Mariela Olson on 09-05-2024 AST [Catalytic activity/Vol] 27 U/L 15- [facility] Lymphocytes Auto (Unsp spec) [#/Vol]Ordered By: Mariela Olson on 09-05-2024 Lymphocytes (Bld) [#/Vol] 1.41 10*3/uL 0.83-4.51 [facility] Lymphocytes/100 WBC Auto (Un sp spec)Ordered By: Marielabruce Olson on 09-05-2024 Lymphocytes/100 WBC (Bld) 22.2 % 19-41 [facility] MCV (mean corpuscular volume ) determinationOrdered By: Marielabruce Olson on 09-05-2024 MCV (RBC) [Entitic vol] 88.7 fL 80-94 [facility] Mean corpuscular hemoglobin (MCH) determinationOrdered By: Mariela Olson on 09-05-2024 MCH (RBC) [Entitic mass] 29.6 pg 27.0-32.0 [facility] Mean corpuscular hemoglobin concentration (MCHC) determinationOrdered By: Marielabruce Olson on 09-05-2024 MCHC (RBC) [Mass/Vol] 33.3 g/dL 32-36 [facility] Mean platelet volume determi nationOrdered By: Mariela Olson on 09-05-2024 Platelet mean volume (Bld) [Entitic vol] 9.8 fL 6.2-12.0 [facility] Monocyte percentageOrdered B y: Mariela Olson on 09-05-2024 Monocytes/100 WBC (Bld) 10.2 % High 0-10 [facility] Neutrophil percentageOrdered By: Marielabruce Olson on 09-05-2024 Neutrophils/100 WBC (Bld) 64.0 % 47-70 [facility] No Panel InformationOrdered By: Mariela Olson on 09-05-2024 27 U/L 15- [facility] Nucleated red blood cell per centageOrdered By: Mariela Olson on 09-05-2024 Nucleated RBC/100 WBC (Bld) [Ratio] 0 % 0-5 [facility] Platelet countOrdered By: Ra caio Olson on 09-05-2024 Platelets (Bld) [#/Vol] 274 10*3/uL 150-450 [facility] Potassium measurementOrdered By: Mariela Olson on 09-05-2024 Potassium [Moles/Vol] 4.3 mmol/L 3.5-5.1 [facility] RBC Auto (Bld) [#/Vol]Ordere d By: Mairela Olson on 09-05-2024 RBC (Bld) [#/Vol] 4.50 10*6/uL Low 4.6-6.2 [facility] Serum anion gap measurementO rdered By: Mariela Olson on 09-05-2024 Anion gap [Moles/Vol] 7 mmol/L 5-15 [facility] Serum globulin measurementOr dered By: Mariela Olson on 09-05-2024 Globulin (S) [Mass/Vol] 3.7 g/dL 2.2-4.2 [facility] Serum or plasma alanine carrion otransferase (ALT) measurementOrdered By: Mariela Olson on 09-05-2024 ALT [Catalytic activity/Vol] 30 U/L 16-61 [facility] Serum or plasma albumin shagufta urement (mass/volume)Ordered By: Mariela Olson on 09-05-2024 Albumin [Mass/Vol] 3.8 g/dL 3.2-5.0 [facility] Serum or plasma alkaline airam sphatase measurementOrdered By: Mariela Olson 09-05-2024 ALP [Catalytic activity/Vol] 106 U/L 45-117 [facility] Serum or plasma calcium shagufta urement (mass/volume)Ordered By: Mariela Olson 09-05-2024 Calcium [Mass/Vol] 9.8 mg/dL 8.5-10.1 [facility] Serum or plasma creatinine m easurement (mass/volume)Ordered By: Mariela Olson on 09-05-2024 Creatinine [Mass/Vol] 1.23 mg/dL 0.70-1.30 [facility] Comment on above: The validity of the calculated GFR & GFRAA in patients over 70 years has not been determined. Clinical correlation is essential. Serum or plasma urea nitroge n measurement (mass/volume)Ordered By: Mariela Cifuentesgar on 09-05-2024 Urea nitrogen [Mass/Vol] 16 mg/dL 7-18 [facility] Sodium levelOrdered By: Ana M Olson on 09-05-2024 Sodium [Moles/Vol] 135 mmol/L Low 136-145 [facility] Total proteinOrdered By: Hortencia Olson on 09-05-2024 Protein [Mass/Vol] 7.5 g/dL 6.4-8.2 [facility] White blood cell (WBC) count Ordered By: Mariela Cifuentesgar on 09-05-2024 WBC (Bld) [#/Vol] 6.4 10*3/uL 4.4-11.0 [facility] Oncology Visit Reporton Oncology Visit Report Normal [facility] Carcinoembryonic Antigenon 09-19-2023 CEA 6.6 ng/mL High 0.0-4.7 [facility] Comment on above: Result Comment: Nons mokers <3.9 Smokers <5.6[facility] Electrochemiluminescence Immunoassay(ECLIA)Values obtained with different assay methods or kitscannot be used interchangeably. Results cannot beinterpreted as absolute evidence of the presence orabsence of malignant disease.Performed at: [place] [id number] Director: Jian Paredes PhD, Phone: [phone] Performed By: #### L 500.4050, L100.0100, L3100.2300 ####[facility] [address] [place], [place], [id number] CBC W/Diff, Automatedon 07-01 Absolute Lymph 1.90 X10 3/uL Normal 0.83-4.51 [facility] Comment on above: Performed By: #### L 500.4050, L100.0100, L3100.2300 ####[facility] [address] [place], [address] Absolute Neut 3.9 X10 3/uL Normal 2.0-7.7 [facility] Comment on above: Performed By: #### L 500.4050, L100.0100, L3100.2300 ####[facility] [address] [place], [address] Basophils/100 WBC (Bld) 0.3 % Normal 0-1 [facility] Comment on above: Performed By: #### L 500.4050, L100.0100, L3100.2300 ####[facility] [address] [place], [address] Eosinophils/100 WBC (Bld) 5.3 % High 0-5 [facility] Comment on above: Performed By: #### L 500.4050, L100.0100, L3100.2300 ####[facility] [address] [place], [address] Erythrocyte distribution width (RBC) [Ratio] 17.1 % High 11.6-14.6 [facility] Comment on above: Performed By: #### L 500.4050, L100.0100, L3100.2300 ####[facility] [address] [place], [address] Hematocrit (Bld) [Volume fraction] 36.4 % Low 40-54 [facility] Comment on above: Performed By: #### L 500.4050, L100.0100, L3100.2300 ####[facility] [address] [place], [address] Hemoglobin (Bld) [Mass/Vol] 11.8 g/dL Low 13.0-16.5 [facility] Comment on above: Performed By: #### L 500.4050, L100.0100, L3100.2300 ####[facility] [address] [place], [address] IG% 0.300 Normal 0.0-0.9 [facility] Comment on above: Result Comment: IG% - Immature Granulocytes (promyelocytes, myelocytes andmetamyelocytes) > 1% indicates that a LEFT SHIFT is Present. Performed By: #### L 500.4050, L100.0100, L3100.2300 ####[facility] [address] [place], [address] Lymphocytes/100 WBC (Bld) 27.4 % Normal 19-41 [facility] Comment on above: Performed By: #### L 500.4050, L100.0100, L3100.2300 ####[facility] [address] [place], [address] MCH (RBC) [Entitic mass] 28.1 pg Normal 27.0-32.0 [facility] Comment on above: Performed By: #### L 500.4050, L100.0100, L3100.2300 ####[facility] [address] [place], [address] MCHC (RBC) [Mass/Vol] 32.4 g/dL Normal 32-36 [facility] Comment on above: Performed By: #### L 500.4050, L100.0100, L3100.2300 ####[facility] [address] [place], [address] MCV (RBC) [Entitic vol] 86.7 fL Normal 80-94 [facility] Comment on above: Performed By: #### L 500.4050, L100.0100, L3100.2300 ####[facility] [address] [place], [address] Monocytes/100 WBC (Bld) 11.1 % High 0-10 [facility] Comment on above: Performed By: #### L 500.4050, L100.0100, L3100.2300 ####[facility] [address] [place], [address] Neutrophils/100 WBC (Bld) 55.6 % Normal 47-70 [facility] Comment on above: Performed By: #### L 500.4050, L100.0100, L3100.2300 ####[facility] [address] [place], [address] Nucleated RBC (Bld) [#/Vol] 0 10*3/uL Normal 0-5 [facility] Comment on above: Performed By: #### L 500.4050, L100.0100, L3100.2300 ####[facility] [address] [place], [address] Platelet mean volume (Bld) [Entitic vol] 9.4 fL Normal 6.2-12.0 [facility] Comment on above: Performed By: #### L 500.4050, L100.0100, L3100.2300 ####[facility] [address] [place], [address] Platelets (Bld) [#/Vol] 230 10*3/uL Normal 150-450 [facility] Comment on above: Performed By: #### L 500.4050, L100.0100, L3100.2300 ####[facility] [address] [place], [address] RBC (Bld) [#/Vol] 4.20 10*6/uL Low 4.6-6.2 [facility] Comment on above: Performed By: #### L 500.4050, L100.0100, L3100.2300 ####[facility] [address] [place], [address] RDW SD 54.4 fl High 35.1-43.9 [facility] Comment on above: Performed By: #### L 500.4050, L100.0100, L3100.2300 ####[facility] [address] [place], [address] WBC (Bld) [#/Vol] 6.9 10*3/uL Normal 4.4-11.0 [facility] Comment on above: Performed By: #### L 500.4050, L100.0100, L3100.2300 ####[facility] [address] [place], [address] Comprehensive Metabolic [facility] ilon 07-18-2024 Albumin [Mass/Vol] 3.6 g/dL Normal 3.2-5.0 [facility] Comment on above: Performed By: #### L 500.4050, L100.0100, L3100.2300 ####[facility] [address] [place], [address] Albumin/Globulin [Mass ratio] 1.0 {ratio} Normal 0.9-2.4 [facility] Comment on above: Performed By: #### L 500.4050, L100.0100, L3100.2300 ####[facility] [address] [place], [address] ALK P 114 U/L Normal 45-117 [facility] Comment on above: Performed By: #### L 500.4050, L100.0100, L3100.2300 ####[facility] [address] [place], [address] ALT [Catalytic activity/Vol] 33 U/L Normal 16-61 [facility] Comment on above: Performed By: #### L 500.4050, L100.0100, L3100.2300 ####[facility] [address] [place], [address] AST [Catalytic activity/Vol] 25 U/L Normal 15-37 [facility] Comment on above: Performed By: #### L 500.4050, L100.0100, L3100.2300 ####[facility] [address] [place], [address] Bilirubin [Mass/Vol] 0.30 mg/dL Normal 0.20-1.00 [facility] Comment on above: Result Comment: For patients on eltrombopag therapy, use of Dimension [place] TBIL is not recommended. Performed By: #### L 500.4050, L100.0100, L3100.2300 ####[facility] [address] [place], [address] BUN/CRE 14.8 RATIO Normal 10-20 [facility] Comment on above: Performed By: #### L 500.4050, L100.0100, L3100.2300 ####[facility] [address] [place], [address] CA,Total 9.0 mg/dL Normal 8.5-10.1 [facility] Comment on above: Performed By: #### L 500.4050, L100.0100, L3100.2300 ####[facility] [address] [place], [address] Chloride [Moles/Vol] 104 mmol/L Normal 98-107 [facility] Comment on above: Performed By: #### L 500.4050, L100.0100, L3100.2300 ####[facility] [address] [place], [address] CO2 [Moles/Vol] 30.0 mmol/L Normal 21.0-32.0 [facility] Comment on above: Performed By: #### L 500.4050, L100.0100, L3100.2300 ####[facility] [address] [place], [address] Creatinine [Mass/Vol] 1.15 mg/dL Normal 0.70-1.30 [facility] Comment on above: Result Comment: The validity of the calculated GFR GFRAA in patients over70 years has not been determined. Clinical correlation isessential. Performed By: #### L 500.4050, L100.0100, L3100.2300 ####[facility] [address] [place], [address] ECRCL 47.90 ml/min Normal [facility] Comment on above: Performed By: #### L 500.4050, L100.0100, L3100.2300 ####[facility] [address] [place], [address] EST GFR - AA 79 mL/min Normal >60 [facility] Comment on above: Result Comment: Afri can Egyptian GFR Calc Performed By: #### L 500.4050, L100.0100, L3100.2300 ####[facility] [address] [place], [address] GAP 2 Low 5-15 [facility] Comment on above: Performed By: #### L 500.4050, L100.0100, L3100.2300 ####[facility] [address] [place], [address] GFR/1.73 sq M.predicted among non-blacks MDRD (S/P/Bld) [Vol rate/Area] 65 mL/min/{1.73_m2} Normal >60 [facility] Comment on above: Result Comment: Non- GFR Calc Performed By: #### L 500.4050, L100.0100, L3100.2300 ####[facility] [address] [place], [address] Globulin (S) [Mass/Vol] 3.6 g/dL Normal 2.2-4.2 [facility] Comment on above: Performed By: #### L 500.4050, L100.0100, L3100.2300 ####[facility] [address] [place], [address] Glucose [Mass/Vol] 105 mg/dL Normal 74-106 [facility] Comment on above: Result Comment: Fast ing Glucose result from 100 to 125 mg/dLsuggests IMPAIRED HOMEOSTASIS per A.D.A. criteria. Performed By: #### L 500.4050, L100.0100, L3100.2300 ####[facility] [address] [place], [address] Potassium [Moles/Vol] 4.0 mmol/L Normal 3.5-5.1 [facility] Comment on above: Performed By: #### L 500.4050, L100.0100, L3100.2300 ####[facility] [address] [place], [address] Sodium [Moles/Vol] 136 mmol/L Normal 136-145 [facility] Comment on above: Performed By: #### L 500.4050, L100.0100, L3100.2300 ####[facility] [address] [place], [address] T PROT 7.2 g/dL Normal 6.4-8.2 [facility] Comment on above: Performed By: #### L 500.4050, L100.0100, L3100.2300 ####[facility] [address] [place], [address] Urea nitrogen [Mass/Vol] 17 mg/dL Normal - [facility] Comment on above: Performed By: #### L 500.4050, L100.0100, L3100.2300 ####[facility] [address] [place], [address] Estimated glomerular filtrat ion rate (GFR) AmericanOrdered By: Papi Hernandez on 07-18-2024 Estimated GFR (MDRD) Amer 79 mL/min >60 [facility] Comment on above: GFR Calc Oncology Visit Reporton 07-01 Oncology Visit Report Normal [facility] CBC W/Diff, Automatedon 12-0 Absolute Lymph 1.59 X10 3/uL Normal 0.83-4.51 [facility] Comment on above: Performed By: #### L 300.3900, L100.0100 ####[facility] [address] [place], [address] Absolute Neut 3.4 X10 3/uL Normal 2.0-7.7 [facility] Comment on above: Performed By: #### L 300.3900, L100.0100 ####[facility] [address] [place], [address] Basophils/100 WBC (Bld) 0.5 % Normal 0-1 [facility] Comment on above: Performed By: #### L 300.3900, L100.0100 ####[facility] [address] [place], [address] Eosinophils/100 WBC (Bld) 4.7 % Normal 0-5 [facility] Comment on above: Performed By: #### L 300.3900, L100.0100 ####[facility] [address] [place], [address] Erythrocyte distribution width (RBC) [Ratio] 17.5 % High 11.6-14.6 [facility] Comment on above: Performed By: #### L 300.3900, L100.0100 ####[facility] [address] [place], [address] Hematocrit (Bld) [Volume fraction] 36.9 % Low 40-54 [facility] Comment on above: Performed By: #### L 300.3900, L100.0100 ####[facility] [address] [place], [address] Hemoglobin (Bld) [Mass/Vol] 11.5 g/dL Low 13.0-16.5 [facility] Comment on above: Performed By: #### L 300.3900, L100.0100 ####[facility] [address] [place], [address] IG% 0.300 Normal 0.0-0.9 [facility] Comment on above: Result Comment: IG% - Immature Granulocytes (promyelocytes, myelocytes andmetamyelocytes) > 1% indicates that a LEFT SHIFT is Present. Performed By: #### L 300.3900, L100.0100 ####[facility] [address] [place], [address] Lymphocytes/100 WBC (Bld) 26.6 % Normal 19-41 [facility] Comment on above: Performed By: #### L 300.3900, L100.0100 ####[facility] [address] [place], [address] MCH (RBC) [Entitic mass] 27.1 pg Normal 27.0-32.0 [facility] Comment on above: Performed By: #### L 300.3900, L100.0100 ####[facility] [address] [place], [address] MCHC (RBC) [Mass/Vol] 31.2 g/dL Low 32-36 [facility] Comment on above: Performed By: #### L 300.3900, L100.0100 ####[facility] [address] [place], [address] MCV (RBC) [Entitic vol] 87.0 fL Normal 80-94 [facility] Comment on above: Performed By: #### L 300.3900, L100.0100 ####[facility] [address] [place], [address] Monocytes/100 WBC (Bld) 10.5 % High 0-10 [facility] Comment on above: Performed By: #### L 300.3900, L100.0100 ####[facility] [address] [place], [address] Neutrophils/100 WBC (Bld) 57.4 % Normal 47-70 [facility] Comment on above: Performed By: #### L 300.3900, L100.0100 ####[facility] [address] [place], [address] Nucleated RBC (Bld) [#/Vol] 0 10*3/uL Normal 0-5 [facility] Comment on above: Performed By: #### L 300.3900, L100.0100 ####[facility] [address] [place], [address] Platelet mean volume (Bld) [Entitic vol] 9.2 fL Normal 6.2-12.0 [facility] Comment on above: Performed By: #### L 300.3900, L100.0100 ####[facility] [address] [place], [address] Platelets (Bld) [#/Vol] 316 10*3/uL Normal 150-450 [facility] Comment on above: Performed By: #### L 300.3900, L100.0100 ####[facility] [address] [place], [address] RBC (Bld) [#/Vol] 4.24 10*6/uL Low 4.6-6.2 [facility] Comment on above: Performed By: #### L 300.3900, L100.0100 ####[facility] [address] [place], [address] RDW SD 56.3 fl High 35.1-43.9 [facility] Comment on above: Performed By: #### L 300.3900, L100.0100 ####[facility] [address] [place], [address] WBC (Bld) [#/Vol] 6.0 10*3/uL Normal 4.4-11.0 [facility] Comment on above: Performed By: #### L 300.3900, L100.0100 ####[facility] [address] [place], [address] International normalized rat io (INR) calculationOrdered By: Sunny Mancia on 07-04-2024 INR Coag (Bld) [Relative time] 1.0 {INR} [facility] NATERAon 07-04-2024 NATURA SEE SCANNED REPORT Normal [facility] Comment on above: Performed By: #### L 900.0098 ####[facility] [address] [place], [address] Oncology Visit Reporton Oncology Visit Report Normal [facility] Prothrombin Time w/INRon INR Coag (PPP) [Relative time] 1.0 {INR} Normal [facility] Comment on above: Performed By: #### L 300.3900, L100.0100 ####[facility] [address] [place], [address] PT Coag (PPP) [Time] 12.8 s Normal 11.7-14.9 [facility] Comment on above: Performed By: #### L 300.3900, L100.0100 ####[facility] [address] [place], [address] Prothrombin timeOrdered By: Sunny Mancia on 07-04-2024 PT Coag (PPP) [Time] 12.8 s 11.7-14.9 [facility] Bronchoscopy Reporton 2023 Bronchoscopy Report Normal [facility] CK7 (initial)on 06-22-2024 CK7 (initial) Normal [facility] Comment on above: Performed By: #### P CK7 ####[facility] [address] [place], [address] EGD Reporton 06-22-2024 EGD Report Normal [facility] H Pylori (initial)on 024 H Pylori (initial) Normal [facility] Comment on above: Performed By: #### P H.PYLORI ####[facility] [address] [place], [address] MR/POSTOP.ANEon 06-22-2024 MR/POSTOP.ANE Normal [facility] MR/SDGWKIHB5cs 06-22-2024 MR/POSTOPAN2 Normal [facility] Special Stain Group Ion 11-2 Special Stain Group I Normal [facility] Comment on above: Performed By: #### P SSI ####[facility] [address] [place], [address] Surgery Specimen Level Oscar 06-22-2024 Surgery Specimen Level IV Normal [facility] Comment on above: Performed By: #### P SUIV ####[facility] [address] [place], [address] CBC W/Diff, Automatedon 06-01 Absolute Lymph 1.50 X10 3/uL Normal 0.83-4.51 [facility] Comment on above: Order Comment: Comme nts: Post-operatively Performed By: #### L 100.0100 ####[facility] [address] [place], [address] Absolute Neut 5.3 X10 3/uL Normal 2.0-7.7 [facility] Comment on above: Order Comment: Comme nts: Post-operatively Performed By: #### L 100.0100 ####[facility] [address] [place], [address] Basophils/100 WBC (Bld) 0.3 % Normal 0-1 [facility] Comment on above: Order Comment: Comme nts: Post-operatively Performed By: #### L 100.0100 ####[facility] [address] [place], [address] Eosinophils/100 WBC (Bld) 1.8 % Normal 0-5 [facility] Comment on above: Order Comment: Comme nts: Post-operatively Performed By: #### L 100.0100 ####[facility] [address] [place], [address] Erythrocyte distribution width (RBC) [Ratio] 18.0 % High 11.6-14.6 [facility] Comment on above: Order Comment: Comme nts: Post-operatively Performed By: #### L 100.0100 ####[facility] [address] [place], [address] Hematocrit (Bld) [Volume fraction] 36.1 % Low 40-54 [facility] Comment on above: Order Comment: Comme nts: Post-operatively Performed By: #### L 100.0100 ####[facility] [address] [place], [address] Hemoglobin (Bld) [Mass/Vol] 11.3 g/dL Low 13.0-16.5 [facility] Comment on above: Order Comment: Comme nts: Post-operatively Performed By: #### L 100.0100 ####[facility] [address] [place], [address] IG% 0.400 Normal 0.0-0.9 [facility] Comment on above: Order Comment: Comme nts: Post-operatively Result Comment: IG% - Immature Granulocytes (promyelocytes, myelocytes andmetamyelocytes) > 1% indicates that a LEFT SHIFT is Present. Performed By: #### L 100.0100 ####[facility] [address] [place], [address] Lymphocytes/100 WBC (Bld) 19.5 % Normal 19-41 [facility] Comment on above: Order Comment: Comme nts: Post-operatively Performed By: #### L 100.0100 ####[facility] [address] [place], [address] MCH (RBC) [Entitic mass] 27.0 pg Normal 27.0-32.0 [facility] Comment on above: Order Comment: Comme nts: Post-operatively Performed By: #### L 100.0100 ####[facility] [address] [place], [address] MCHC (RBC) [Mass/Vol] 31.3 g/dL Low 32-36 [facility] Comment on above: Order Comment: Comme nts: Post-operatively Performed By: #### L 100.0100 ####[facility] [address] [place], [address] MCV (RBC) [Entitic vol] 86.4 fL Normal 80-94 [facility] Comment on above: Order Comment: Comme nts: Post-operatively Performed By: #### L 100.0100 ####[facility] [address] [place], [address] Monocytes/100 WBC (Bld) 9.2 % Normal 0-10 [facility] Comment on above: Order Comment: Comme nts: Post-operatively Performed By: #### L 100.0100 ####[facility] [address] [place], [address] Neutrophils/100 WBC (Bld) 68.8 % Normal 47-70 [facility] Comment on above: Order Comment: Comme nts: Post-operatively Performed By: #### L 100.0100 ####[facility] [address] [place], [address] Nucleated RBC (Bld) [#/Vol] 0 10*3/uL Normal 0-5 [facility] Comment on above: Order Comment: Comme nts: Post-operatively Performed By: #### L 100.0100 ####[facility] [address] [place], [address] Platelet mean volume (Bld) [Entitic vol] 9.3 fL Normal 6.2-12.0 [facility] Comment on above: Order Comment: Comme nts: Post-operatively Performed By: #### L 100.0100 ####[facility] [address] [place], [address] Platelets (Bld) [#/Vol] 294 10*3/uL Normal 150-450 [facility] Comment on above: Order Comment: Comme nts: Post-operatively Performed By: #### L 100.0100 ####[facility] [address] [place], [address] RBC (Bld) [#/Vol] 4.18 10*6/uL Low 4.6-6.2 [facility] Comment on above: Order Comment: Comme nts: Post-operatively Performed By: #### L 100.0100 ####[facility] [address] [place], [address] RDW SD 57.7 fl High 35.1-43.9 [facility] Comment on above: Order Comment: Comme nts: Post-operatively Performed By: #### L 100.0100 ####[facility] [address] [place], [address] WBC (Bld) [#/Vol] 7.7 10*3/uL Normal 4.4-11.0 [facility] Comment on above: Order Comment: Comme nts: Post-operatively Performed By: #### L 100.0100 ####[facility] [address] [place], [address] Pulmonary Visit Reporton Pulmonary Visit Report Normal [facility] Basic Metabolic Profile (BMP )on 06-10-2024 BUN/CRE 17.0 RATIO Normal 10-20 [facility] Comment on above: Performed By: #### L 500.2500, L100.0100 ####[facility] [address] [place], [address] CA,Total 8.7 mg/dL Normal 8.5-10.1 [facility] Comment on above: Performed By: #### L 500.2500, L100.0100 ####[facility] [address] [place], [address] Chloride [Moles/Vol] 108 mmol/L High 98-107 [facility] Comment on above: Performed By: #### L 500.2500, L100.0100 ####[facility] [address] [place], [address] CO2 [Moles/Vol] 26.0 mmol/L Normal 21.0-32.0 [facility] Comment on above: Performed By: #### L 500.2500, L100.0100 ####[facility] [address] [place], [address] Creatinine [Mass/Vol] 1.12 mg/dL Normal 0.70-1.30 [facility] Comment on above: Result Comment: The validity of the calculated GFR GFRAA in patients over70 years has not been determined. Clinical correlation isessential. Performed By: #### L 500.2500, L100.0100 ####[facility] [address] [place], [address] ECRCL 49.18 ml/min Normal [facility] Comment on above: Performed By: #### L 500.2500, L100.0100 ####[facility] [address] [place], [address] EST GFR - AA 81 mL/min Normal >60 [facility] Comment on above: Result Comment: Afri can Egyptian GFR Calc Performed By: #### L 500.2500, L100.0100 ####[facility] [address] [place], [address] GAP 4 Low 5-15 [facility] Comment on above: Performed By: #### L 500.2500, L100.0100 ####[facility] [address] [place], [address] GFR/1.73 sq M.predicted among non-blacks MDRD (S/P/Bld) [Vol rate/Area] 67 mL/min/{1.73_m2} Normal >60 [facility] Comment on above: Result Comment: Non- GFR Calc Performed By: #### L 500.2500, L100.0100 ####[facility] [address] [place], [address] Glucose [Mass/Vol] 100 mg/dL Normal 74-106 [facility] Comment on above: Result Comment: Fast ing Glucose result from 100 to 125 mg/dLsuggests IMPAIRED HOMEOSTASIS per A.D.A. criteria. Performed By: #### L 500.2500, L100.0100 ####[facility] [address] [place], [address] Potassium [Moles/Vol] 4.2 mmol/L Normal 3.5-5.1 [facility] Comment on above: Performed By: #### L 500.2500, L100.0100 ####[facility] [address] [place], [address] Sodium [Moles/Vol] 138 mmol/L Normal 136-145 [facility] Comment on above: Performed By: #### L 500.2500, L100.0100 ####[facility] [address] [place], [address] Urea nitrogen [Mass/Vol] 19 mg/dL High 7-18 [facility] Comment on above: Performed By: #### L 500.2500, L100.0100 ####[facility] [address] [place], [address] CBC W/Diff, Automatedon 11- 0-2023 Absolute Lymph 1.57 X10 3/uL Normal 0.83-4.51 [facility] Comment on above: Performed By: #### L 500.2500, L100.0100 ####[facility] [address] [place], [address] Absolute Neut 3.5 X10 3/uL Normal 2.0-7.7 [facility] Comment on above: Performed By: #### L 500.2500, L100.0100 ####[facility] [address] [place], [address] Basophils/100 WBC (Bld) 0.2 % Normal 0-1 [facility] Comment on above: Performed By: #### L 500.2500, L100.0100 ####[facility] [address] [place], [address] Eosinophils/100 WBC (Bld) 3.9 % Normal 0-5 [facility] Comment on above: Performed By: #### L 500.2500, L100.0100 ####[facility] [address] [place], [address] Erythrocyte distribution width (RBC) [Ratio] 18.6 % High 11.6-14.6 [facility] Comment on above: Performed By: #### L 500.2500, L100.0100 ####[facility] [address] [place], [address] Hematocrit (Bld) [Volume fraction] 32.1 % Low 40-54 [facility] Comment on above: Performed By: #### L 500.2500, L100.0100 ####[facility] [address] [place], [address] Hemoglobin (Bld) [Mass/Vol] 10.2 g/dL Low 13.0-16.5 [facility] Comment on above: Performed By: #### L 500.2500, L100.0100 ####[facility] [address] [place], [address] IG% 0.300 Normal 0.0-0.9 [facility] Comment on above: Result Comment: IG% - Immature Granulocytes (promyelocytes, myelocytes andmetamyelocytes) > 1% indicates that a LEFT SHIFT is Present. Performed By: #### L 500.2500, L100.0100 ####[facility] [address] [place], [address] Lymphocytes/100 WBC (Bld) 25.7 % Normal 19-41 [facility] Comment on above: Performed By: #### L 500.2500, L100.0100 ####[facility] [address] [place], [address] MCH (RBC) [Entitic mass] 27.1 pg Normal 27.0-32.0 [facility] Comment on above: Performed By: #### L 500.2500, L100.0100 ####[facility] [address] [place], [address] MCHC (RBC) [Mass/Vol] 31.8 g/dL Low 32-36 [facility] Comment on above: Performed By: #### L 500.2500, L100.0100 ####[facility] [address] [place], [address] MCV (RBC) [Entitic vol] 85.4 fL Normal 80-94 [facility] Comment on above: Performed By: #### L 500.2500, L100.0100 ####[facility] [address] [place], [address] Monocytes/100 WBC (Bld) 12.4 % High 0-10 [facility] Comment on above: Performed By: #### L 500.2500, L100.0100 ####[facility] [address] [place], [address] Neutrophils/100 WBC (Bld) 57.5 % Normal 47-70 [facility] Comment on above: Performed By: #### L 500.2500, L100.0100 ####[facility] [address] [place], [address] Nucleated RBC (Bld) [#/Vol] 0 10*3/uL Normal 0-5 [facility] Comment on above: Performed By: #### L 500.2500, L100.0100 ####[facility] [address] [place], [address] Platelet mean volume (Bld) [Entitic vol] 9.6 fL Normal 6.2-12.0 [facility] Comment on above: Performed By: #### L 500.2500, L100.0100 ####[facility] [address] [place], [address] Platelets (Bld) [#/Vol] 275 10*3/uL Normal 150-450 [facility] Comment on above: Performed By: #### L 500.2500, L100.0100 ####[facility] [address] [place], [address] RBC (Bld) [#/Vol] 3.76 10*6/uL Low 4.6-6.2 [facility] Comment on above: Performed By: #### L 500.2500, L100.0100 ####[facility] [address] [place], [address] RDW SD 58.0 fl High 35.1-43.9 [facility] Comment on above: Performed By: #### L 500.2500, L100.0100 ####[facility] [address] [place], [address] WBC (Bld) [#/Vol] 6.1 10*3/uL Normal 4.4-11.0 [facility] Comment on above: Performed By: #### L 500.2500, L100.0100 ####[facility] [address] [place], [address] Discharge Instructionon 06-01 Discharge Instruction Normal [facility] BRCon 06-09-2024 RC Normal Neg [facility] Comment on above: Result Comment: [id number] OP RC TRANSFUSED 06/09/24 1143 Performed By: #### B TS, [facility] ####[facility] [address] [place], [address] CBC W/Diff, Automatedon 11-0 Absolute Lymph 1.40 X10 3/uL Normal 0.83-4.51 [facility] Comment on above: Performed By: #### L 100.0100, L500.4050, L501.5200 ####[facility] [address] [place], [address] Absolute Neut 4.2 X10 3/uL Normal 2.0-7.7 [facility] Comment on above: Performed By: #### L 100.0100, L500.4050, L501.5200 ####[facility] [address] [place], [address] Basophils/100 WBC (Bld) 0.3 % Normal 0-1 [facility] Comment on above: Performed By: #### L 100.0100, L500.4050, L501.5200 ####[facility] [address] [place], [address] Eosinophils/100 WBC (Bld) 3.2 % Normal 0-5 [facility] Comment on above: Performed By: #### L 100.0100, L500.4050, L501.5200 ####[facility] [address] [place], [address] Erythrocyte distribution width (RBC) [Ratio] 19.2 % High 11.6-14.6 [facility] Comment on above: Performed By: #### L 100.0100, L500.4050, L501.5200 ####[facility] [address] [place], [address] Hematocrit (Bld) [Volume fraction] 26.4 % Low 40-54 [facility] Comment on above: Performed By: #### L 100.0100, L500.4050, L501.5200 ####[facility] [address] [place], [address] Hemoglobin (Bld) [Mass/Vol] 8.2 g/dL Low 13.0-16.5 [facility] Comment on above: Performed By: #### L 100.0100, L500.4050, L501.5200 ####[facility] [address] [place], [address] IG% 0.300 Normal 0.0-0.9 [facility] Comment on above: Result Comment: IG% - Immature Granulocytes (promyelocytes, myelocytes andmetamyelocytes) > 1% indicates that a LEFT SHIFT is Present. Performed By: #### L 100.0100, L500.4050, L501.5200 ####[facility] [address] [place], [address] Lymphocytes/100 WBC (Bld) 21.6 % Normal 19-41 [facility] Comment on above: Performed By: #### L 100.0100, L500.4050, L501.5200 ####[facility] [address] [place], [address] MCH (RBC) [Entitic mass] 26.8 pg Low 27.0-32.0 [facility] Comment on above: Performed By: #### L 100.0100, L500.4050, L501.5200 ####[facility] [address] [place], [address] MCHC (RBC) [Mass/Vol] 31.1 g/dL Low 32-36 [facility] Comment on above: Performed By: #### L 100.0100, L500.4050, L501.5200 ####[facility] [address] [place], [address] MCV (RBC) [Entitic vol] 86.3 fL Normal 80-94 [facility] Comment on above: Performed By: #### L 100.0100, L500.4050, L501.5200 ####[facility] [address] [place], [address] Monocytes/100 WBC (Bld) 10.2 % High 0-10 [facility] Comment on above: Performed By: #### L 100.0100, L500.4050, L501.5200 ####[facility] [address] [place], [address] Neutrophils/100 WBC (Bld) 64.4 % Normal 47-70 [facility] Comment on above: Performed By: #### L 100.0100, L500.4050, L501.5200 ####[facility] [address] [place], [address] Nucleated RBC (Bld) [#/Vol] 0 10*3/uL Normal 0-5 [facility] Comment on above: Performed By: #### L 100.0100, L500.4050, L501.5200 ####[facility] [address] [place], [address] Platelet mean volume (Bld) [Entitic vol] 9.8 fL Normal 6.2-12.0 [facility] Comment on above: Performed By: #### L 100.0100, L500.4050, L501.5200 ####[facility] [address] [place], [address] Platelets (Bld) [#/Vol] 262 10*3/uL Normal 150-450 [facility] Comment on above: Performed By: #### L 100.0100, L500.4050, L501.5200 ####[facility] [address] [place], [address] RBC (Bld) [#/Vol] 3.06 10*6/uL Low 4.6-6.2 [facility] Comment on above: Performed By: #### L 100.0100, L500.4050, L501.5200 ####[facility] [address] [place], [address] RDW SD 59.4 fl High 35.1-43.9 [facility] Comment on above: Performed By: #### L 100.0100, L500.4050, L501.5200 ####[facility] [address] [place], [address] WBC (Bld) [#/Vol] 6.5 10*3/uL Normal 4.4-11.0 [facility] Comment on above: Performed By: #### L 100.0100, L500.4050, L501.5200 ####[facility] [address] [place], [address] Comprehensive Metabolic [facility] 06-09-2024 Albumin [Mass/Vol] 2.9 g/dL Low 3.2-5.0 [facility] Comment on above: Performed By: #### L 100.0100, L500.4050, L501.5200 ####[facility] [address] [place], [address] Albumin/Globulin [Mass ratio] 1.1 {ratio} Normal 0.9-2.4 [facility] Comment on above: Performed By: #### L 100.0100, L500.4050, L501.5200 ####[facility] [address] [place], [address] ALK P 76 U/L Normal 45-117 [facility] Comment on above: Performed By: #### L 100.0100, L500.4050, L501.5200 ####[facility] [address] [place], [address] ALT [Catalytic activity/Vol] 12 U/L Low 16-61 [facility] Comment on above: Performed By: #### L 100.0100, L500.4050, L501.5200 ####[facility] [address] [place], [address] AST [Catalytic activity/Vol] 14 U/L Low 15-37 [facility] Comment on above: Performed By: #### L 100.0100, L500.4050, L501.5200 ####[facility] [address] [place], [address] Bilirubin [Mass/Vol] 0.60 mg/dL Normal 0.20-1.00 [facility] Comment on above: Result Comment: For patients on eltrombopag therapy, use of Dimension [place] TBIL is not recommended. Performed By: #### L 100.0100, L500.4050, L501.5200 ####[facility] [address] [place], [address] BUN/CRE 19.6 RATIO Normal 10-20 [facility] Comment on above: Performed By: #### L 100.0100, L500.4050, L501.5200 ####[facility] [address] [place], [address] CA,Total 7.9 mg/dL Low 8.5-10.1 [facility] Comment on above: Performed By: #### L 100.0100, L500.4050, L501.5200 ####[facility] [address] [place], [address] Chloride [Moles/Vol] 105 mmol/L Normal 98-107 [facility] Comment on above: Performed By: #### L 100.0100, L500.4050, L501.5200 ####[facility] [address] [place], [address] CO2 [Moles/Vol] 24.0 mmol/L Normal 21.0-32.0 [facility] Comment on above: Performed By: #### L 100.0100, L500.4050, L501.5200 ####[facility] [address] [place], [address] Creatinine [Mass/Vol] 1.12 mg/dL Normal 0.70-1.30 [facility] Comment on above: Result Comment: The validity of the calculated GFR GFRAA in patients over70 years has not been determined. Clinical correlation isessential. Performed By: #### L 100.0100, L500.4050, L501.5200 ####[facility] [address] [place], [address] ECRCL 49.18 ml/min Normal [facility] Comment on above: Performed By: #### L 100.0100, L500.4050, L501.5200 ####[facility] [address] [place], [address] EST GFR - AA 81 mL/min Normal >60 [facility] Comment on above: Result Comment: Afri can Egyptian GFR Calc Performed By: #### L 100.0100, L500.4050, L501.5200 ####[facility] [address] [place], [address] GAP 5 Normal 5-15 [facility] Comment on above: Performed By: #### L 100.0100, L500.4050, L501.5200 ####[facility] [address] [place], [address] GFR/1.73 sq M.predicted among non-blacks MDRD (S/P/Bld) [Vol rate/Area] 67 mL/min/{1.73_m2} Normal >60 [facility] Comment on above: Result Comment: Non- GFR Calc Performed By: #### L 100.0100, L500.4050, L501.5200 ####[facility] [address] [place], [address] Globulin (S) [Mass/Vol] 2.6 g/dL Normal 2.2-4.2 [facility] Comment on above: Performed By: #### L 100.0100, L500.4050, L501.5200 ####[facility] [address] [place], [address] Glucose [Mass/Vol] 103 mg/dL Normal 74-106 [facility] Comment on above: Result Comment: Fast ing Glucose result from 100 to 125 mg/dLsuggests IMPAIRED HOMEOSTASIS per A.D.A. criteria. Performed By: #### L 100.0100, L500.4050, L501.5200 ####[facility] [address] [place], [address] Potassium [Moles/Vol] 3.9 mmol/L Normal 3.5-5.1 [facility] Comment on above: Performed By: #### L 100.0100, L500.4050, L501.5200 ####[facility] [address] [place], [address] Sodium [Moles/Vol] 135 mmol/L Low 136-145 [facility] Comment on above: Performed By: #### L 100.0100, L500.4050, L501.5200 ####[facility] [address] [place], [address] T PROT 5.5 g/dL Low 6.4-8.2 [facility] Comment on above: Performed By: #### L 100.0100, L500.4050, L501.5200 ####[facility] [address] [place], [address] Urea nitrogen [Mass/Vol] 22 mg/dL High 7-18 [facility] Comment on above: Performed By: #### L 100.0100, L500.4050, L501.5200 ####[facility] [address] [place], [address] HH, Hemoglobin AND Hematocri ton 06-09-2024 Hematocrit (Bld) [Volume fraction] 27.8 % Low 40-54 [facility] Comment on above: Performed By: #### L 100.0600 ####[facility] [address] [place], [address] Hemoglobin (Bld) [Mass/Vol] 9.0 g/dL Low 13.0-16.5 [facility] Comment on above: Performed By: #### L 100.0600 ####[facility] [address] [place], [address] L501.4020on 06-09-2024 TROPONIN-I HS 88 pg/mL High 3.0-78.0 [facility] Comment on above: Order Comment: 'TROP ' Serial specimen #1, #2 or #3: 3 Result Comment: Plea se Note: New Test Units and Gender Specific Reference Ranges. For more information see Policy Stat Procedure [place] High Sensitivity Troponin (TNIH) and attachments. Performed By: #### L 501.4020 ####[facility] [address] [place], [address] Magnesiumon 06-09-2024 Magnesium [Mass/Vol] 1.8 mg/dL Normal 1.6-2.6 [facility] Comment on above: Performed By: #### L 100.0100, L500.4050, L501.5200 ####[facility] [address] [place], [address] Type AND Screenon 06-09-2024 Ab SCREEN GEL Negative Normal [facility] Comment on above: Order Comment: CMV N EG? NNumber of units to transfuse: 1Reason for Ordering Blood: AcuteAre the blood/blood products to be transfused? YIs the patient having/had surgery? NWhen Maxine Performed By: #### B TS, [facility] ####[facility] [address] [place], [address] ABO and Rh group Nom (Bld) Blood group O Rh(D) positive Normal [facility] Comment on above: Order Comment: CMV N EG? NNumber of units to transfuse: 1Reason for Ordering Blood: AcuteAre the blood/blood products to be transfused? YIs the patient having/had surgery? NWwilfredo Goodman Performed By: #### B JONES, [facility] ####[facility] [address] [place], [address] 12 Lead EKGon 06-08-2024 12 Lead EKG Normal [facility] BNP,B-Type NATRIURETIC PEPTI Иван 06-08-2024 Natriuretic peptide B (Bld) [Mass/Vol] 109.8 pg/mL High 0-100 [facility] Comment on above: Performed By: #### L 503.6620, L300.3900, L100.0100, L501.5425, L500.2500 ####[facility] [address] [place], [address] Basic Metabolic Profile (BMP )on 06-08-2024 BUN/CRE 18.2 RATIO Normal 10-20 [facility] Comment on above: Order Comment: 1Y Performed By: #### L 503.6620, L300.3900, L100.0100, L501.5425, L500.2500 ####[facility] [address] [place], [address] CA,Total 9.4 mg/dL Normal 8.5-10.1 [facility] Comment on above: Order Comment: 1Y Performed By: #### L 503.6620, L300.3900, L100.0100, L501.5425, L500.2500 ####[facility] [address] [place], [address] Chloride [Moles/Vol] 105 mmol/L Normal 98-107 [facility] Comment on above: Order Comment: 1Y Performed By: #### L 503.6620, L300.3900, L100.0100, L501.5425, L500.2500 ####[facility] [address] [place], [address] CO2 [Moles/Vol] 23.0 mmol/L Normal 21.0-32.0 [facility] Comment on above: Order Comment: 1Y Performed By: #### L 503.6620, L300.3900, L100.0100, L501.5425, L500.2500 ####[facility] [address] [place], [address] Creatinine [Mass/Vol] 1.21 mg/dL Normal 0.70-1.30 [facility] Comment on above: Order Comment: 1Y Result Comment: The validity of the calculated GFR GFRAA in patients over70 years has not been determined. Clinical correlation isessential. Performed By: #### L 503.6620, L300.3900, L100.0100, L501.5425, L500.2500 ####[facility] [address] [place], [address] ECRCL 45.52 ml/min Normal [facility] Comment on above: Order Comment: 1Y Performed By: #### L 503.6620, L300.3900, L100.0100, L501.5425, L500.2500 ####[facility] [address] [place], [address] EST GFR - AA 74 mL/min Normal >60 [facility] Comment on above: Order Comment: 1Y Result Comment: Afri can Egyptian GFR Calc Performed By: #### L 503.6620, L300.3900, L100.0100, L501.5425, L500.2500 ####[facility] [address] [place], [address] GAP 8 Normal 5-15 [facility] Comment on above: Order Comment: 1Y Performed By: #### L 503.6620, L300.3900, L100.0100, L501.5425, L500.2500 ####[facility] [address], [address] GFR/1.73 sq M.predicted among non-blacks MDRD (S/P/Bld) [Vol rate/Area] 61 mL/min/{1.73_m2} Normal >60 [facility] Comment on above: Order Comment: 1Y Result Comment: Non- GFR Calc Performed By: #### L 503.6620, L300.3900, L100.0100, L501.5425, L500.2500 ####[facility] [address] [place], [address] Glucose [Mass/Vol] 127 mg/dL High 74-106 [facility] Comment on above: Order Comment: 1Y Result Comment: Fast ing Glucose result greater than or equal to 126 mg/dLsuggests DIABETES MELLITUS per A.D.A. criteria. Performed By: #### L 503.6620, L300.3900, L100.0100, L501.5425, L500.2500 ####[facility] [address] [place], [address] Potassium [Moles/Vol] 3.8 mmol/L Normal 3.5-5.1 [facility] Comment on above: Order Comment: 1Y Performed By: #### L 503.6620, L300.3900, L100.0100, L501.5425, L500.2500 ####[facility] [address] [place], [address] Sodium [Moles/Vol] 136 mmol/L Normal 136-145 [facility] Comment on above: Order Comment: 1Y Performed By: #### L 503.6620, L300.3900, L100.0100, L501.5425, L500.2500 ####[facility] [address] [place], [address] Urea nitrogen [Mass/Vol] 22 mg/dL High 7-18 [facility] Comment on above: Order Comment: 1Y Performed By: #### L 503.6620, L300.3900, L100.0100, L501.5425, L500.2500 ####[facility] [address] [place], [address] Biopsy/Inj or Needle Placeme nton - Biopsy/Inj or Needle Placement Normal [facility] CBC W/Diff, Automatedon Absolute Lymph 0.97 X10 3/uL Normal 0.83-4.51 [facility] Comment on above: Performed By: #### L 100.0100 ####[facility] [address] [place], [address] Absolute Neut 5.5 X10 3/uL Normal 2.0-7.7 [facility] Comment on above: Performed By: #### L 100.0100 ####[facility] [address] [place], [address] Basophils/100 WBC (Bld) 0.1 % Normal 0-1 [facility] Comment on above: Performed By: #### L 100.0100 ####[facility] [address] [place], [address] Eosinophils/100 WBC (Bld) 1.3 % Normal 0-5 [facility] Comment on above: Performed By: #### L 100.0100 ####[facility] [address] [place], [address] Erythrocyte distribution width (RBC) [Ratio] 18.9 % High 11.6-14.6 [facility] Comment on above: Performed By: #### L 100.0100 ####[facility] [address] [place], [address] Hematocrit (Bld) [Volume fraction] 27.6 % Low 40-54 [facility] Comment on above: Performed By: #### L 100.0100 ####[facility] [address] [place], [address] Hemoglobin (Bld) [Mass/Vol] 8.7 g/dL Low 13.0-16.5 [facility] Comment on above: Performed By: #### L 100.0100 ####[facility] [address] [place], [address] IG% 0.400 Normal 0.0-0.9 [facility] Comment on above: Result Comment: IG% - Immature Granulocytes (promyelocytes, myelocytes andmetamyelocytes) > 1% indicates that a LEFT SHIFT is Present. Performed By: #### L 100.0100 ####[facility] [address] [place], [address] Lymphocytes/100 WBC (Bld) 13.5 % Low 19-41 [facility] Comment on above: Performed By: #### L 100.0100 ####[facility] [address] [place], [address] MCH (RBC) [Entitic mass] 27.2 pg Normal 27.0-32.0 [facility] Comment on above: Performed By: #### L 100.0100 ####[facility] [address] [place], [address] MCHC (RBC) [Mass/Vol] 31.5 g/dL Low 32-36 [facility] Comment on above: Performed By: #### L 100.0100 ####[facility] [address] [place], [address] MCV (RBC) [Entitic vol] 86.3 fL Normal 80-94 [facility] Comment on above: Performed By: #### L 100.0100 ####[facility] [address] [place], [address] Monocytes/100 WBC (Bld) 8.1 % Normal 0-10 [facility] Comment on above: Performed By: #### L 100.0100 ####[facility] [address] [place], [address] Neutrophils/100 WBC (Bld) 76.6 % High 47-70 [facility] Comment on above: Performed By: #### L 100.0100 ####[facility] [address] [place], [address] Nucleated RBC (Bld) [#/Vol] 0 10*3/uL Normal 0-5 [facility] Comment on above: Performed By: #### L 100.0100 ####[facility] [address] [place], [address] Platelet mean volume (Bld) [Entitic vol] 9.1 fL Normal 6.2-12.0 [facility] Comment on above: Performed By: #### L 100.0100 ####[facility] [address] [place], [address] Platelets (Bld) [#/Vol] 265 10*3/uL Normal 150-450 [facility] Comment on above: Performed By: #### L 100.0100 ####[facility] [address] [place], [address] RBC (Bld) [#/Vol] 3.20 10*6/uL Low 4.6-6.2 [facility] Comment on above: Performed By: #### L 100.0100 ####[facility] [address] [place], [address] RDW SD 58.9 fl High 35.1-43.9 [facility] Comment on above: Performed By: #### L 100.0100 ####[facility] [address] [place], [address] WBC (Bld) [#/Vol] 7.2 10*3/uL Normal 4.4-11.0 [facility] Comment on above: Performed By: #### L 100.0100 ####[facility] [address] [place], [address] Absolute Lymph 1.94 X10 3/uL Normal 0.83-4.51 [facility] Comment on above: Performed By: #### L 503.6620, L300.3900, L100.0100, L501.5425, L500.2500 ####[facility] [address] [place], [address] Absolute Neut 10.2 X10 3/uL High 2.0-7.7 [facility] Comment on above: Performed By: #### L 503.6620, L300.3900, L100.0100, L501.5425, L500.2500 ####[facility] [address] [place], [address] Basophils/100 WBC (Bld) 0.2 % Normal 0-1 [facility] Comment on above: Performed By: #### L 503.6620, L300.3900, L100.0100, L501.5425, L500.2500 ####[facility] [address] [place], [address] Eosinophils/100 WBC (Bld) 1.6 % Normal 0-5 [facility] Comment on above: Performed By: #### L 503.6620, L300.3900, L100.0100, L501.5425, L500.2500 ####[facility] [address] [place], [address] Erythrocyte distribution width (RBC) [Ratio] 18.9 % High 11.6-14.6 [facility] Comment on above: Performed By: #### L 503.6620, L300.3900, L100.0100, L501.5425, L500.2500 ####[facility] [address], [address] Hematocrit (Bld) [Volume fraction] 35.8 % Low 40-54 [facility] Comment on above: Performed By: #### L 503.6620, L300.3900, L100.0100, L501.5425, L500.2500 ####[facility] [address] [place], [address] Hemoglobin (Bld) [Mass/Vol] 11.1 g/dL Low 13.0-16.5 [facility] Comment on above: Performed By: #### L 503.6620, L300.3900, L100.0100, L501.5425, L500.2500 ####[facility] [address] [place], [address] IG% 0.600 Normal 0.0-0.9 [facility] Comment on above: Result Comment: IG% - Immature Granulocytes (promyelocytes, myelocytes andmetamyelocytes) > 1% indicates that a LEFT SHIFT is Present. Performed By: #### L 503.6620, L300.3900, L100.0100, L501.5425, L500.2500 ####[facility] [address] [place], [address] Lymphocytes/100 WBC (Bld) 14.5 % Low 19-41 [facility] Comment on above: Performed By: #### L 503.6620, L300.3900, L100.0100, L501.5425, L500.2500 ####[facility] [address] [place], [address] MCH (RBC) [Entitic mass] 26.5 pg Low 27.0-32.0 [facility] Comment on above: Performed By: #### L 503.6620, L300.3900, L100.0100, L501.5425, L500.2500 ####[facility] [address] [place], [address] MCHC (RBC) [Mass/Vol] 31.0 g/dL Low 32-36 [facility] Comment on above: Performed By: #### L 503.6620, L300.3900, L100.0100, L501.5425, L500.2500 ####[facility] [address] [place], [address] MCV (RBC) [Entitic vol] 85.4 fL Normal 80-94 [facility] Comment on above: Performed By: #### L 503.6620, L300.3900, L100.0100, L501.5425, L500.2500 ####[facility] [address] [place], [address] Monocytes/100 WBC (Bld) 6.7 % Normal 0-10 [facility] Comment on above: Performed By: #### L 503.6620, L300.3900, L100.0100, L501.5425, L500.2500 ####[facility] [address] [place], [address] Neutrophils/100 WBC (Bld) 76.4 % High 47-70 [facility] Comment on above: Performed By: #### L 503.6620, L300.3900, L100.0100, L501.5425, L500.2500 ####[facility] [address] [place], [address] Nucleated RBC (Bld) [#/Vol] 0 10*3/uL Normal 0-5 [facility] Comment on above: Performed By: #### L 503.6620, L300.3900, L100.0100, L501.5425, L500.2500 ####[facility] [address] [place], [address] Platelet mean volume (Bld) [Entitic vol] 9.8 fL Normal 6.2-12.0 [facility] Comment on above: Performed By: #### L 503.6620, L300.3900, L100.0100, L501.5425, L500.2500 ####[facility] [address] [place], [address] Platelets (Bld) [#/Vol] 372 10*3/uL Normal 150-450 [facility] Comment on above: Performed By: #### L 503.6620, L300.3900, L100.0100, L501.5425, L500.2500 ####[facility] [address] [place], [address] RBC (Bld) [#/Vol] 4.19 10*6/uL Low 4.6-6.2 [facility] Comment on above: Performed By: #### L 503.6620, L300.3900, L100.0100, L501.5425, L500.2500 ####[facility] [address] [place], [address] RDW SD 57.8 fl High 35.1-43.9 [facility] Comment on above: Performed By: #### L 503.6620, L300.3900, L100.0100, L501.5425, L500.2500 ####[facility] [address] [place], [address] WBC (Bld) [#/Vol] 13.4 10*3/uL High 4.4-11.0 [facility] Comment on above: Performed By: #### L 503.6620, L300.3900, L100.0100, L501.5425, L500.2500 ####[facility] [address] [place], [address] Absolute Lymph 1.50 X10 3/uL Normal 0.83-4.51 [facility] Comment on above: Performed By: #### L 300.4310, L100.0100, L300.3900 ####[facility] [address] [place], [address] Absolute Neut 4.2 X10 3/uL Normal 2.0-7.7 [facility] Comment on above: Performed By: #### L 300.4310, L100.0100, L300.3900 ####[facility] [address] [place], [address] Basophils/100 WBC (Bld) 0.4 % Normal 0-1 [facility] Comment on above: Performed By: #### L 300.4310, L100.0100, L300.3900 ####[facility] [address] [place], [address] Eosinophils/100 WBC (Bld) 4.9 % Normal 0-5 [facility] Comment on above: Performed By: #### L 300.4310, L100.0100, L300.3900 ####[facility] [address] [place], [address] Erythrocyte distribution width (RBC) [Ratio] 18.9 % High 11.6-14.6 [facility] Comment on above: Performed By: #### L 300.4310, L100.0100, L300.3900 ####[facility] [address] [place], [address] Hematocrit (Bld) [Volume fraction] 36.2 % Low 40-54 [facility] Comment on above: Performed By: #### L 300.4310, L100.0100, L300.3900 ####[facility] [address] [place], [address] Hemoglobin (Bld) [Mass/Vol] 11.4 g/dL Low 13.0-16.5 [facility] Comment on above: Performed By: #### L 300.4310, L100.0100, L300.3900 ####[facility] [address] [place], [address] IG% 0.400 Normal 0.0-0.9 [facility] Comment on above: Result Comment: IG% - Immature Granulocytes (promyelocytes, myelocytes andmetamyelocytes) > 1% indicates that a LEFT SHIFT is Present. Performed By: #### L 300.4310, L100.0100, L300.3900 ####[facility] [address] [place], [address] Lymphocytes/100 WBC (Bld) 21.6 % Normal 19-41 [facility] Comment on above: Performed By: #### L 300.4310, L100.0100, L300.3900 ####[facility] [address] [place], [address] MCH (RBC) [Entitic mass] 26.8 pg Low 27.0-32.0 [facility] Comment on above: Performed By: #### L 300.4310, L100.0100, L300.3900 ####[facility] [address] [place], [address] MCHC (RBC) [Mass/Vol] 31.5 g/dL Low 32-36 [facility] Comment on above: Performed By: #### L 300.4310, L100.0100, L300.3900 ####[facility] [address] [place], [address] MCV (RBC) [Entitic vol] 85.2 fL Normal 80-94 [facility] Comment on above: Performed By: #### L 300.4310, L100.0100, L300.3900 ####[facility] [address] [place], [address] Monocytes/100 WBC (Bld) 11.8 % High 0-10 [facility] Comment on above: Performed By: #### L 300.4310, L100.0100, L300.3900 ####[facility] [address] [place], [address] Neutrophils/100 WBC (Bld) 60.9 % Normal 47-70 [facility] Comment on above: Performed By: #### L 300.4310, L100.0100, L300.3900 ####[facility] [address] [place], [address] Nucleated RBC (Bld) [#/Vol] 0 10*3/uL Normal 0-5 [facility] Comment on above: Performed By: #### L 300.4310, L100.0100, L300.3900 ####[facility] [address] [place], [address] Platelet mean volume (Bld) [Entitic vol] 9.5 fL Normal 6.2-12.0 [facility] Comment on above: Performed By: #### L 300.4310, L100.0100, L300.3900 ####[facility] [address] [place], [address] Platelets (Bld) [#/Vol] 344 10*3/uL Normal 150-450 [facility] Comment on above: Performed By: #### L 300.4310, L100.0100, L300.3900 ####[facility] [address] [place], [address] RBC (Bld) [#/Vol] 4.25 10*6/uL Low 4.6-6.2 [facility] Comment on above: Performed By: #### L 300.4310, L100.0100, L300.3900 ####[facility] [address] [place], [address] RDW SD 57.6 fl High 35.1-43.9 [facility] Comment on above: Performed By: #### L 300.4310, L100.0100, L300.3900 ####[facility] [address] [place], [address] WBC (Bld) [#/Vol] 6.9 10*3/uL Normal 4.4-11.0 [facility] Comment on above: Performed By: #### L 300.4310, L100.0100, L300.3900 ####[facility] [address] [place], [address] CBC-Complete Blood Cnt No Di ffon 06-08-2024 Erythrocyte distribution width (RBC) [Ratio] 18.8 % High 11.6-14.6 [facility] Comment on above: Performed By: #### L 100.0500 ####[facility] [address] [place], [address] Hematocrit (Bld) [Volume fraction] 30.7 % Low 40-54 [facility] Comment on above: Performed By: #### L 100.0500 ####[facility] [address] [place], [address] Hemoglobin (Bld) [Mass/Vol] 9.8 g/dL Low 13.0-16.5 [facility] Comment on above: Performed By: #### L 100.0500 ####[facility] [address] [place], [address] MCH (RBC) [Entitic mass] 27.1 pg Normal 27.0-32.0 [facility] Comment on above: Performed By: #### L 100.0500 ####[facility] [address] [place], [address] MCHC (RBC) [Mass/Vol] 31.9 g/dL Low 32-36 [facility] Comment on above: Performed By: #### L 100.0500 ####[facility] [address] [place], [address] MCV (RBC) [Entitic vol] 84.8 fL Normal 80-94 [facility] Comment on above: Performed By: #### L 100.0500 ####[facility] [address] [place], [address] Platelet mean volume (Bld) [Entitic vol] 9.1 fL Normal 6.2-12.0 [facility] Comment on above: Performed By: #### L 100.0500 ####[facility] [address] [place], [address] Platelets (Bld) [#/Vol] 284 10*3/uL Normal 150-450 [facility] Comment on above: Performed By: #### L 100.0500 ####[facility] [address] [place], [address] RBC (Bld) [#/Vol] 3.62 10*6/uL Low 4.6-6.2 [facility] Comment on above: Performed By: #### L 100.0500 ####[facility] [address] [place], [address] RDW SD 57.6 fl High 35.1-43.9 [facility] Comment on above: Performed By: #### L 100.0500 ####[facility] [address] [place], [address] WBC (Bld) [#/Vol] 9.9 10*3/uL Normal 4.4-11.0 [facility] Comment on above: Performed By: #### L 100.0500 ####[facility] [address] [place], [address] CTA Chst, Abd, Pel W and/or WOon 06-08-2024 CTA Chst, Abd, Pel W and/or WO Normal [facility] Chest 1 View (Portable)on Chest 1 View (Portable) Normal [facility] Emergency Department Summary on 06-08-2024 Emergency Department Summary Normal [facility] H AND P Exam - Hospitaliston 06-08-2024 H&P Exam - Hospitalist Normal [facility] L501.4020on 06-08-2024 TROPONIN-I HS 96 pg/mL High 3.0-78.0 [facility] Comment on above: Result Comment: Plea se Note: New Test Units and Gender Specific Reference Ranges. For more information see Policy Stat Procedure [place] High Sensitivity Troponin (TNIH) and attachments. Performed By: #### L 501.4020 ####[facility] [address] [place], [address] L501.5425on 06-08-2024 TROPONIN-I HS 97 pg/mL High 3.0-78.0 [facility] Comment on above: Order Comment: 1Y Result Comment: Plea se Note: New Test Units and Gender Specific Reference Ranges. For more information see Policy Stat Procedure [place] High Sensitivity Troponin (TNIH) and attachments. Performed By: #### L 503.6620, L300.3900, L100.0100, L501.5425, L500.2500 ####[facility] [address] [place], [address] Lipaseon 06-08-2024 Lipase [Catalytic activity/Vol] 26 U/L Normal 13-75 [facility] Comment on above: Result Comment: Plea se note:LIPASE revised reference range effective 22.New Lipase methodology. Expected to produce lower valuesthan the previous assay method.NEW Reference Range: 13 - 75 U/L Performed By: #### L 500.3400, L501.2450 ####[facility] [address] [place], [address] Liver Profileon 06-08-2024 Albumin [Mass/Vol] 3.6 g/dL Normal 3.2-5.0 [facility] Comment on above: Performed By: #### L 500.3400, L501.2450 ####[facility] [address] [place], [address] ALK P 103 U/L Normal 45-117 [facility] Comment on above: Performed By: #### L 500.3400, L501.2450 ####[facility] [address] [place], [address] ALT [Catalytic activity/Vol] 20 U/L Normal 16-61 [facility] Comment on above: Performed By: #### L 500.3400, L5.2450 ####[facility] [address] [place], [address] AST [Catalytic activity/Vol] 23 U/L Normal 15-37 [facility] Comment on above: Performed By: #### L 500.3400, L5.2450 ####[facility] [address] [place], [address] Bilirubin [Mass/Vol] 0.60 mg/dL Normal 0.20-1.00 [facility] Comment on above: Result Comment: For patients on eltrombopag therapy, use of Dimension [place] TBIL is not recommended. Performed By: #### L 500.3400, L501.2450 ####[facility] [address] [place], [address] Bilirubin.direct [Mass/Vol] 0.18 mg/dL Normal 0.00-0.30 [facility] Comment on above: Performed By: #### L 500.3400, L501.2450 ####[facility] [address] [place], [address] Globulin (S) [Mass/Vol] 3.5 g/dL Normal 2.2-4.2 [facility] Comment on above: Performed By: #### L 500.3400, L501.2450 ####[facility] [address] [place], [address] T PROT 7.1 g/dL Normal 6.4-8.2 [facility] Comment on above: Performed By: #### L 500.3400, L501.2450 ####[facility] [address] [place], [address] Partial Thromboplast Timeon 06-08-2024 aPTT Coag (Bld) [Time] 32.9 s Normal 24.1-36.2 [facility] Comment on above: Performed By: #### L 300.4310, L100.0100, L300.3900 ####[facility] [address] [place], [address] Prothrombin Time w/INRon INR Coag (PPP) [Relative time] 1.1 {INR} Normal [facility] Comment on above: Performed By: #### L 503.6620, L300.3900, L100.0100, L501.5425, L500.2500 ####[facility] [address] [place], [address] PT Coag (PPP) [Time] 14.3 s Normal 11.7-14.9 [facility] Comment on above: Performed By: #### L 503.6620, L300.3900, L100.0100, L501.5425, L500.2500 ####[facility] [address] [place], [address] INR Coag (PPP) [Relative time] 1.1 {INR} Normal [facility] Comment on above: Performed By: #### L 300.4310, L100.0100, L300.3900 ####[facility] [address] [place], [address] PT Coag (PPP) [Time] 13.9 s Normal 11.7-14.9 [facility] Comment on above: Performed By: #### L 300.4310, L100.0100, L300.3900 ####[facility] [address] [place], [address] Trichrome (control)on 2023 Trichrome (control) Normal [facility] Comment on above: Performed By: #### P TRI ####[facility] [address] [place], [address] 12 Lead EKGon 06-07-2024 12 Lead EKG Normal [facility] Basic Metabolic Profile (BMP )on 06-07-2024 BUN/CRE 18.3 RATIO Normal 10-20 [facility] Comment on above: Performed By: #### L 500.2500, L100.0100 ####[facility] [address] [place], [address] CA,Total 9.7 mg/dL Normal 8.5-10.1 [facility] Comment on above: Performed By: #### L 500.2500, L100.0100 ####[facility] [address] [place], [address] Chloride [Moles/Vol] 103 mmol/L Normal 98-107 [facility] Comment on above: Performed By: #### L 500.2500, L100.0100 ####[facility] [address] [place], [address] CO2 [Moles/Vol] 26.0 mmol/L Normal 21.0-32.0 [facility] Comment on above: Performed By: #### L 500.2500, L100.0100 ####[facility] [address] [place], [address] Creatinine [Mass/Vol] 1.04 mg/dL Normal 0.70-1.30 [facility] Comment on above: Result Comment: The validity of the calculated GFR GFRAA in patients over70 years has not been determined. Clinical correlation isessential. Performed By: #### L 500.2500, L100.0100 ####[facility] [address] [place], [address] ECRCL 52.96 ml/min Normal [facility] Comment on above: Performed By: #### L 500.2500, L100.0100 ####[facility] [address] [place], [address] EST GFR - AA 88 mL/min Normal >60 [facility] Comment on above: Result Comment: Afri can Egyptian GFR Calc Performed By: #### L 500.2500, L100.0100 ####[facility] [address] [place], [address] GAP 7 Normal 5-15 [facility] Comment on above: Performed By: #### L 500.2500, L100.0100 ####[facility] [address] [place], [address] GFR/1.73 sq M.predicted among non-blacks MDRD (S/P/Bld) [Vol rate/Area] 73 mL/min/{1.73_m2} Normal >60 [facility] Comment on above: Result Comment: Non- GFR Calc Performed By: #### L 500.2500, L100.0100 ####[facility] [address] [place], [address] Glucose [Mass/Vol] 101 mg/dL Normal 74-106 [facility] Comment on above: Result Comment: Fast ing Glucose result from 100 to 125 mg/dLsuggests IMPAIRED HOMEOSTASIS per A.D.A. criteria. Performed By: #### L 500.2500, L100.0100 ####[facility] [address] [place], [address] Potassium [Moles/Vol] 4.1 mmol/L Normal 3.5-5.1 [facility] Comment on above: Performed By: #### L 500.2500, L100.0100 ####[facility] [address] [place], [address] Sodium [Moles/Vol] 136 mmol/L Normal 136-145 [facility] Comment on above: Performed By: #### L 500.2500, L100.0100 ####[facility] [address] [place], [address] Urea nitrogen [Mass/Vol] 19 mg/dL High 7-18 [facility] Comment on above: Performed By: #### L 500.2500, L100.0100 ####[facility] [address] [place], [address] CBC W/Diff, Automatedon 11-0 7-2023 Absolute Lymph 1.13 X10 3/uL Normal 0.83-4.51 [facility] Comment on above: Performed By: #### L 500.2500, L100.0100 ####[facility] [address] [place], [address] Absolute Neut 3.7 X10 3/uL Normal 2.0-7.7 [facility] Comment on above: Performed By: #### L 500.2500, L100.0100 ####[facility] [address] [place], [address] Basophils/100 WBC (Bld) 0.4 % Normal 0-1 [facility] Comment on above: Performed By: #### L 500.2500, L100.0100 ####[facility] [address] [place], [address] Eosinophils/100 WBC (Bld) 4.1 % Normal 0-5 [facility] Comment on above: Performed By: #### L 500.2500, L100.0100 ####[facility] [address] [place], [address] Erythrocyte distribution width (RBC) [Ratio] 18.9 % High 11.6-14.6 [facility] Comment on above: Performed By: #### L 500.2500, L100.0100 ####[facility] [address] [place], [address] Hematocrit (Bld) [Volume fraction] 35.0 % Low 40-54 [facility] Comment on above: Performed By: #### L 500.2500, L100.0100 ####[facility] [address] [place], [address] Hemoglobin (Bld) [Mass/Vol] 11.1 g/dL Low 13.0-16.5 [facility] Comment on above: Performed By: #### L 500.2500, L100.0100 ####[facility] [address] [place], [address] IG% 0.400 Normal 0.0-0.9 [facility] Comment on above: Result Comment: IG% - Immature Granulocytes (promyelocytes, myelocytes andmetamyelocytes) > 1% indicates that a LEFT SHIFT is Present. Performed By: #### L 500.2500, L100.0100 ####[facility] [address] [place], [address] Lymphocytes/100 WBC (Bld) 20.0 % Normal 19-41 [facility] Comment on above: Performed By: #### L 500.2500, L100.0100 ####[facility] [address] [place], [address] MCH (RBC) [Entitic mass] 27.1 pg Normal 27.0-32.0 [facility] Comment on above: Performed By: #### L 500.2500, L100.0100 ####[facility] [address] [place], [address] MCHC (RBC) [Mass/Vol] 31.7 g/dL Low 32-36 [facility] Comment on above: Performed By: #### L 500.2500, L100.0100 ####[facility] [address] [place], [address] MCV (RBC) [Entitic vol] 85.4 fL Normal 80-94 [facility] Comment on above: Performed By: #### L 500.2500, L100.0100 ####[facility] [address] [place], [address] Monocytes/100 WBC (Bld) 10.4 % High 0-10 [facility] Comment on above: Performed By: #### L 500.2500, L100.0100 ####[facility] [address] [place], [address] Neutrophils/100 WBC (Bld) 64.7 % Normal 47-70 [facility] Comment on above: Performed By: #### L 500.2500, L100.0100 ####[facility] [address] [place], [place], [id number] Nucleated RBC (Bld) [#/Vol] 0 10*3/uL Normal 0-5 [facility] Comment on above: Performed By: #### L 500.2500, L100.0100 ####[facility] [address] [place], [address] Platelet mean volume (Bld) [Entitic vol] 9.5 fL Normal 6.2-12.0 [facility] Comment on above: Performed By: #### L 500.2500, L100.0100 ####[facility] [address] [place], [address] Platelets (Bld) [#/Vol] 301 10*3/uL Normal 150-450 [facility] Comment on above: Performed By: #### L 500.2500, L100.0100 ####[facility] [address] [place], [address] RBC (Bld) [#/Vol] 4.10 10*6/uL Low 4.6-6.2 [facility] Comment on above: Performed By: #### L 500.2500, L100.0100 ####[facility] [address] [place], [address] RDW SD 57.8 fl High 35.1-43.9 [facility] Comment on above: Performed By: #### L 500.2500, L100.0100 ####[facility] [address] [place], [address] WBC (Bld) [#/Vol] 5.7 10*3/uL Normal 4.4-11.0 [facility] Comment on above: Performed By: #### L 500.2500, L100.0100 ####[facility] [address] [place], [address] Emergency Department Summary on 06-07-2024 Emergency Department Summary Normal [facility] Surgery Visit Reporton 06-07 Surgery Visit Report Normal [facility] Oncology Visit Reporton 05-03 Oncology Visit Report Normal [facility] PET/CT Tumor Base -Thigh Ini ton 05-29-2024 PET/CT Tumor Base -Thigh Init Normal [facility] Carcinoembryonic Antigenon 1 CEA 2.2 ng/mL Normal 0.0-4.7 [facility] Comment on above: Order Comment: Speci men Comment: A duplicate report has been generateddue to demographicSpecimen Comment: updates. Result Comment: Nons mokers <3.9 Smokers <5.6[employer] Electrochemiluminescence Immunoassay(ECLIA)Values obtained with different assay methods or kitscannot be used interchangeably. Results cannot beinterpreted as absolute evidence of the presence orabsence of malignant disease.Performed at: [facility] [address] [id number] Director: Jian Paredes PhD, Phone: [phone] Performed By: #### L 3100.2300, L503.6550 ####[facility] [address] [place], [address] C-reactive protein measureme nt by high sensitivity methodOrdered By: Papi Hernandez on 05-16-2024 C-Reactive Protein Extended Range 5.71 mg/L High 0.0-3.0 [facility] Comment on above: C-Reactive Protein ( CRP) provides useful information for thediagnosis, therapy and monitoring of inflammatory processesand associated diseases. For the evaluation of Relative Riskfor Cardiovascular Disease, a High Sensitivity CRP (HSCRP)should be ordered. C-reactive protein measurement by high sensitivity method 5.71 mg/L High 0.0-3.0 [facility] Comment on above: C-Reactive Protein ( CRP) provides useful information for thediagnosis, therapy and monitoring of inflammatory processesand associated diseases. For the evaluation of Relative Riskfor Cardiovascular Disease, a High Sensitivity CRP (HSCRP)should be ordered. CBC W/Diff, Automatedon 05-01 Absolute Lymph 1.28 X10 3/uL Normal 0.83-4.51 [facility] Comment on above: Performed By: #### L 101.9900, L100.9950, L503.6030, L501.6710, L100.0100, L500.4050, L900.0098 ####[facility] [address] [place], [address] Absolute Neut 3.8 X10 3/uL Normal 2.0-7.7 [facility] Comment on above: Performed By: #### L 101.9900, L100.9950, L503.6030, L501.6710, L100.0100, L500.4050, L900.0098 ####[facility] [address] [place], [address] Basophils/100 WBC (Bld) 0.3 % Normal 0-1 [facility] Comment on above: Performed By: #### L 101.9900, L100.9950, L503.6030, L501.6710, L100.0100, L500.4050, L900.0098 ####[facility] [address] [place], [address] Eosinophils/100 WBC (Bld) 2.6 % Normal 0-5 [facility] Comment on above: Performed By: #### L 101.9900, L100.9950, L503.6030, L501.6710, L100.0100, L500.4050, L900.0098 ####[facility] [address] [place], [address] Erythrocyte distribution width (RBC) [Ratio] 14.2 % Normal 11.6-14.6 [facility] Comment on above: Performed By: #### L 101.9900, L100.9950, L503.6030, L501.6710, L100.0100, L500.4050, L900.0098 ####[facility] [address] [place], [address] Hematocrit (Bld) [Volume fraction] 30.5 % Low 40-54 [facility] Comment on above: Performed By: #### L 101.9900, L100.9950, L503.6030, L501.6710, L100.0100, L500.4050, L900.0098 ####[facility] [address] [place], [address] Hemoglobin (Bld) [Mass/Vol] 9.6 g/dL Low 13.0-16.5 [facility] Comment on above: Performed By: #### L 101.9900, L100.9950, L503.6030, L501.6710, L100.0100, L500.4050, L900.0098 ####[facility] [address] [place], [address] IG% 0.300 Normal 0.0-0.9 [facility] Comment on above: Result Comment: IG% - Immature Granulocytes (promyelocytes, myelocytes andmetamyelocytes) > 1% indicates that a LEFT SHIFT is Present. Performed By: #### L 101.9900, L100.9950, L503.6030, L501.6710, L100.0100, L500.4050, L900.0098 ####[facility] [address] [place], [address] Lymphocytes/100 WBC (Bld) 21.9 % Normal 19-41 [facility] Comment on above: Performed By: #### L 101.9900, L100.9950, L503.6030, L501.6710, L100.0100, L500.4050, L900.0098 ####[facility] [address] [place], [address] MCH (RBC) [Entitic mass] 25.9 pg Low 27.0-32.0 [facility] Comment on above: Performed By: #### L 101.9900, L100.9950, L503.6030, L501.6710, L100.0100, L500.4050, L900.0098 ####[facility] [address] [place], [address] MCHC (RBC) [Mass/Vol] 31.5 g/dL Low 32-36 [facility] Comment on above: Performed By: #### L 101.9900, L100.9950, L503.6030, L501.6710, L100.0100, L500.4050, L900.0098 ####[facility] [address] [place], [address] MCV (RBC) [Entitic vol] 82.2 fL Normal 80-94 [facility] Comment on above: Performed By: #### L 101.9900, L100.9950, L503.6030, L501.6710, L100.0100, L500.4050, L900.0098 ####[facility] [address] [place], [address] Monocytes/100 WBC (Bld) 9.6 % Normal 0-10 [facility] Comment on above: Performed By: #### L 101.9900, L100.9950, L503.6030, L501.6710, L100.0100, L500.4050, L900.0098 ####[facility] [address] [place], [address] Neutrophils/100 WBC (Bld) 65.3 % Normal 47-70 [facility] Comment on above: Performed By: #### L 101.9900, L100.9950, L503.6030, L501.6710, L100.0100, L500.4050, L900.0098 ####[facility] [address] [place], [address] Nucleated RBC (Bld) [#/Vol] 0 10*3/uL Normal 0-5 [facility] Comment on above: Performed By: #### L 101.9900, L100.9950, L503.6030, L501.6710, L100.0100, L500.4050, L900.0098 ####[facility] [address] [place], [address] Platelet mean volume (Bld) [Entitic vol] 9.1 fL Normal 6.2-12.0 [facility] Comment on above: Performed By: #### L 101.9900, L100.9950, L503.6030, L501.6710, L100.0100, L500.4050, L900.0098 ####[facility] [address] [place], [address] Platelets (Bld) [#/Vol] 373 10*3/uL Normal 150-450 [facility] Comment on above: Performed By: #### L 101.9900, L100.9950, L503.6030, L501.6710, L100.0100, L500.4050, L900.0098 ####[facility] [address] [place], [address] RBC (Bld) [#/Vol] 3.71 10*6/uL Low 4.6-6.2 [facility] Comment on above: Performed By: #### L 101.9900, L100.9950, L503.6030, L501.6710, L100.0100, L500.4050, L900.0098 ####[facility] [address] [place], [address] RDW SD 42.2 fl Normal 35.1-43.9 [facility] Comment on above: Performed By: #### L 101.9900, L100.9950, L503.6030, L501.6710, L100.0100, L500.4050, L900.0098 ####[facility] [address] [place], [address] WBC (Bld) [#/Vol] 5.8 10*3/uL Normal 4.4-11.0 [facility] Comment on above: Performed By: #### L 101.9900, L100.9950, L503.6030, L501.6710, L100.0100, L500.4050, L900.0098 ####[facility] [address] [place], [address] CRPon 05-16-2024 C-REACTIVE PROT 5.71 mg/L High 0.0-3.0 [facility] Comment on above: Result Comment: C-Re active Protein (CRP) provides useful information for thediagnosis, therapy and monitoring of inflammatory processesand associated diseases. For the evaluation of Relative Riskfor Cardiovascular Disease, a High Sensitivity CRP (HSCRP)should be ordered. Performed By: #### L 101.9900, L100.9950, L503.6030, L501.6710, L100.0100, L500.4050, L900.0098 ####[facility] [address] [place], [address] Comprehensive Metabolic Prof kson 05-16-2024 Albumin [Mass/Vol] 3.9 g/dL Normal 3.2-5.0 [facility] Comment on above: Performed By: #### L 101.9900, L100.9950, L503.6030, L501.6710, L100.0100, L500.4050, L900.0098 ####[facility] [address] [place], [address] Albumin/Globulin [Mass ratio] 1.1 {ratio} Normal 0.9-2.4 [facility] Comment on above: Performed By: #### L 101.9900, L100.9950, L503.6030, L501.6710, L100.0100, L500.4050, L900.0098 ####[facility] [address] [place], [address] ALK P 101 U/L Normal 45-117 [facility] Comment on above: Performed By: #### L 101.9900, L100.9950, L503.6030, L501.6710, L100.0100, L500.4050, L900.0098 ####[facility] [address] [place], [address] ALT [Catalytic activity/Vol] 19 U/L Normal 16-61 [facility] Comment on above: Performed By: #### L 101.9900, L100.9950, L503.6030, L501.6710, L100.0100, L500.4050, L900.0098 ####[facility] [address] [place], [address] AST [Catalytic activity/Vol] 15 U/L Normal 15-37 [facility] Comment on above: Performed By: #### L 101.9900, L100.9950, L503.6030, L501.6710, L100.0100, L500.4050, L900.0098 ####[facility] [address] [place], [address] Bilirubin [Mass/Vol] 0.50 mg/dL Normal 0.20-1.00 [facility] Comment on above: Result Comment: For patients on eltrombopag therapy, use of Dimension [place] TBIL is not recommended. Performed By: #### L 101.9900, L100.9950, L503.6030, L501.6710, L100.0100, L500.4050, L900.0098 ####[facility] [address] [place], [address] BUN/CRE 16.7 RATIO Normal 10-20 [facility] Comment on above: Performed By: #### L 101.9900, L100.9950, L503.6030, L501.6710, L100.0100, L500.4050, L900.0098 ####[facility] [address] [place], [address] CA,Total 9.6 mg/dL Normal 8.5-10.1 [facility] Comment on above: Performed By: #### L 101.9900, L100.9950, L503.6030, L501.6710, L100.0100, L500.4050, L900.0098 ####[facility] [address] [place], [address] Chloride [Moles/Vol] 105 mmol/L Normal 98-107 [facility] Comment on above: Performed By: #### L 101.9900, L100.9950, L503.6030, L501.6710, L100.0100, L500.4050, L900.0098 ####[facility] [address] [place], [place], [id number] CO2 [Moles/Vol] 26.0 mmol/L Normal 21.0-32.0 [facility] Comment on above: Performed By: #### L 101.9900, L100.9950, L503.6030, L501.6710, L100.0100, L500.4050, L900.0098 ####[facility] [address] [place], [address](303) Creatinine [Mass/Vol] 1.14 mg/dL Normal 0.70-1.30 [facility] Comment on above: Result Comment: The validity of the calculated GFR GFRAA in patients over70 years has not been determined. Clinical correlation isessential. Performed By: #### L 101.9900, L100.9950, L503.6030, L501.6710, L100.0100, L500.4050, L900.0098 ####[facility] [address] [place], [address](931) EST GFR - AA 79 mL/min Normal >60 [facility] Comment on above: Result Comment: Afri can Egyptian GFR Calc Performed By: #### L 101.9900, L100.9950, L503.6030, L501.6710, L100.0100, L500.4050, L900.0098 ####[facility] [address] [place], [address] GAP 4 Low 5-15 [facility] Comment on above: Performed By: #### L 101.9900, L100.9950, L503.6030, L501.6710, L100.0100, L500.4050, L900.0098 ####[facility] [address] [place], [address](417) GFR/1.73 sq M.predicted among non-blacks MDRD (S/P/Bld) [Vol rate/Area] 66 mL/min/{1.73_m2} Normal >60 [facility] Comment on above: Result Comment: Non- GFR Calc Performed By: #### L 101.9900, L100.9950, L503.6030, L501.6710, L100.0100, L500.4050, L900.0098 ####[facility] [address] [place], [address] Globulin (S) [Mass/Vol] 3.7 g/dL Normal 2.2-4.2 [facility] Comment on above: Performed By: #### L 101.9900, L100.9950, L503.6030, L501.6710, L100.0100, L500.4050, L900.0098 ####[facility] [address] [place], [address] Glucose [Mass/Vol] 102 mg/dL Normal 74-106 [facility] Comment on above: Result Comment: Fast ing Glucose result from 100 to 125 mg/dLsuggests IMPAIRED HOMEOSTASIS per A.D.A. criteria. Performed By: #### L 101.9900, L100.9950, L503.6030, L501.6710, L100.0100, L500.4050, L900.0098 ####[facility] [address] [place], [address] Potassium [Moles/Vol] 4.4 mmol/L Normal 3.5-5.1 [facility] Comment on above: Performed By: #### L 101.9900, L100.9950, L503.6030, L501.6710, L100.0100, L500.4050, L900.0098 ####[facility] [address] [place], [address] Sodium [Moles/Vol] 135 mmol/L Low 136-145 [facility] Comment on above: Performed By: #### L 101.9900, L100.9950, L503.6030, L501.6710, L100.0100, L500.4050, L900.0098 ####[facility] [address] [place], [place], [id number] T PROT 7.6 g/dL Normal 6.4-8.2 [facility] Comment on above: Performed By: #### L 101.9900, L100.9950, L503.6030, L501.6710, L100.0100, L500.4050, L900.0098 ####[facility] [address] [place], [address] Urea nitrogen [Mass/Vol] 19 mg/dL High 7-18 [facility] Comment on above: Performed By: #### L 101.9900, L100.9950, L503.6030, L501.6710, L100.0100, L500.4050, L900.0098 ####[facility] [address] [place], [place], [id number] Erythrocyte Sed Rateon 05-16 SED RATE 13 mm/hr Normal 0-20 [facility] Comment on above: Performed By: #### L 101.9900, L100.9950, L503.6030, L501.6710, L100.0100, L500.4050, L900.0098 ####[facility] [address] [place], [place], [address] Erythrocyte sedimentation ra teOrdered By: Papi Hernandez on 05-16-2024 ESR (Bld) [Velocity] 13 mm/h 0-20 [facility] Ferritinon 05-16-2024 Ferritin [Mass/Vol] 31 ng/mL Normal 26-388 [facility] Comment on above: Performed By: #### L 3100.2300, L503.6550 ####[facility] [address] [place], [place], [address] Ferritin measurementOrdered By: Papi Hernandez on 05-16-2024 Ferritin [Mass/Vol] 31 ng/mL 26-388 [facility] Hemoglobin (Reticulocytes) [ Entitic mass]Ordered By: Papi Hernandez on 05-16-2024 Reticulocyte Hemoglobin Equivalent 27.6 pg Low 30-35 [facility] Immature reticulocyte fracti onOrdered By: Papi Hernandez on 05-16-2024 Immature Reticulocyte Fraction 16.60 % High 3.00-15.90 [facility] Iron (Unsp spec) [Mass/Mass] Ordered By: Papi Hernandez on 05-16-2024 Iron [Mass/Vol] 29 ug/dL Low 65-175 [facility] Iron measurement (mass/mass) Ordered By: Papi Hernandez on 05-16-2024 Iron (Unsp spec) [Mass/Mass] 29 ug/dL Low 65-175 [facility] Iron saturation [Mass fracti on]Ordered By: Papi Hernandez on 05-16-2024 Iron Saturation 7.2 % Low 15.0-55.0 [facility] Iron+Iron Binding Capacityon 05-16-2024 Iron [Mass/Vol] 29 ug/dL Low 65-175 [facility] Comment on above: Performed By: #### L 101.9900, L100.9950, L503.6030, L501.6710, L100.0100, L500.4050, L900.0098 ####[facility] [address] [place], [place], [phone] IRON SATURATION 7.2 Low 15.0-55.0 [facility] Comment on above: Performed By: #### L 101.9900, L100.9950, L503.6030, L501.6710, L100.0100, L500.4050, L900.0098 ####[facility] [address] [place], [address] TIBC 401 ug/dL Normal 250-450 [facility] Comment on above: Performed By: #### L 101.9900, L100.9950, L503.6030, L501.6710, L100.0100, L500.4050, L900.0098 ####[facility] [address] [place], [address] NATERAon 05-16-2024 NATURA SEE SCANNED REPORT Normal [facility] Comment on above: Performed By: #### L 101.9900, L100.9950, L503.6030, L501.6710, L100.0100, L500.4050, L900.0098 ####[facility] [address] [place], [address] Oncology Visit Reporton 05-01 Oncology Visit Report Normal [facility] Retic Panelon 05-16-2024 IM RET FRACTION 16.60 High 3.00-15.90 [facility] Comment on above: Performed By: #### L 101.9900, L100.9950, L503.6030, L501.6710, L100.0100, L500.4050, L900.0098 ####[facility] [address] [place], [address] RET-HE 27.6 pg Low 30-35 [facility] Comment on above: Performed By: #### L 101.9900, L100.9950, L503.6030, L501.6710, L100.0100, L500.4050, L900.0098 ####[facility] [address] [place], [address] Retic Count 1.19 Normal 0.5-1.5 [facility] Comment on above: Performed By: #### L 101.9900, L100.9950, L503.6030, L501.6710, L100.0100, L500.4050, L900.0098 ####[facility] [address] [place], [address] Reticulocyte hemoglobin equi valent (RET-He) measurementOrdered By: Papi Hernandez on 05-16-2024 Hemoglobin (Reticulocytes) [Entitic mass] 27.6 pg Low 30-35 [facility] Reticulocytes Auto (Bld) [#/ Vol]Ordered By: Papi Hernandez on 05-16-2024 Reticulocyte Count 1.19 % 0.5-1.5 [facility] Reticulocytes/100 RBC (Bld) 1.19 % 0.5-1.5 [facility] Serum or plasma iron saturat ion measurement (mass fraction)Ordered By: Papi Hernandez on 05-16-2024 Iron saturation [Mass fraction] 7.2 % Low 15.0-55.0 [facility] TIBCOrdered By: Papi Hernandez on 05-16-2024 Total Iron Binding Capacity 401 ug/dL 250-450 [facility] Surgery Visit Reporton 05-10 Surgery Visit Report Normal [facility] Basic Metabolic Profile (BMP )on 05-07-2024 BUN/CRE 13.7 RATIO Normal 10-20 [facility] Comment on above: Performed By: #### L 100.0100, L500.2500 ####[facility] [address] [place], [address] CA,Total 9.5 mg/dL Normal 8.5-10.1 [facility] Comment on above: Performed By: #### L 100.0100, L500.2500 ####[facility] [address] [place], [address] Chloride [Moles/Vol] 103 mmol/L Normal 98-107 [facility] Comment on above: Performed By: #### L 100.0100, L500.2500 ####[facility] [address] [place], [address] CO2 [Moles/Vol] 25.0 mmol/L Normal 21.0-32.0 [facility] Comment on above: Performed By: #### L 100.0100, L500.2500 ####[facility] [address] [place], [address] Creatinine [Mass/Vol] 1.17 mg/dL Normal 0.70-1.30 [facility] Comment on above: Result Comment: The validity of the calculated GFR GFRAA in patients over70 years has not been determined. Clinical correlation isessential. Performed By: #### L 100.0100, L500.2500 ####[facility] [address] [place], [address] EST GFR - AA 77 mL/min Normal >60 [facility] Comment on above: Result Comment: Afri can Egyptian GFR Calc Performed By: #### L 100.0100, L500.2500 ####[facility] [address] [place], [address] GAP 7 Normal 5-15 [facility] Comment on above: Performed By: #### L 100.0100, L500.2500 ####[facility] [address] [place], [address] GFR/1.73 sq M.predicted among non-blacks MDRD (S/P/Bld) [Vol rate/Area] 64 mL/min/{1.73_m2} Normal >60 [facility] Comment on above: Result Comment: Non- GFR Calc Performed By: #### L 100.0100, L500.2500 ####[facility] [address] [place], [address] Glucose [Mass/Vol] 112 mg/dL High 74-106 [facility] Comment on above: Result Comment: Fast ing Glucose result from 100 to 125 mg/dLsuggests IMPAIRED HOMEOSTASIS per A.D.A. criteria. Performed By: #### L 100.0100, L500.2500 ####[facility] [address] [place], [address] Potassium [Moles/Vol] 4.6 mmol/L Normal 3.5-5.1 [facility] Comment on above: Performed By: #### L 100.0100, L500.2500 ####[facility] [address] [place], [address] Sodium [Moles/Vol] 135 mmol/L Low 136-145 [facility] Comment on above: Performed By: #### L 100.0100, L500.2500 ####[facility] [address] [place], [address] Urea nitrogen [Mass/Vol] 16 mg/dL Normal 7-18 [facility] Comment on above: Performed By: #### L 100.0100, L500.2500 ####[facility] [address] [place], [address] CBC W/Diff, Automatedon 10-0 7-2023 Absolute Lymph 1.28 X10 3/uL Normal 0.83-4.51 [facility] Comment on above: Performed By: #### L 100.0100, L500.2500 ####[facility] [address] [place], [address] Absolute Neut 3.6 X10 3/uL Normal 2.0-7.7 [facility] Comment on above: Performed By: #### L 100.0100, L500.2500 ####[facility] [address] [place], [address] Basophils/100 WBC (Bld) 0.4 % Normal 0-1 [facility] Comment on above: Performed By: #### L 100.0100, L500.2500 ####[facility] [address] [place], [address] Eosinophils/100 WBC (Bld) 1.8 % Normal 0-5 [facility] Comment on above: Performed By: #### L 100.0100, L500.2500 ####[facility] [address] [place], [address] Erythrocyte distribution width (RBC) [Ratio] 14.3 % Normal 11.6-14.6 [facility] Comment on above: Performed By: #### L 100.0100, L500.2500 ####[facility] [address] [place], [address] Hematocrit (Bld) [Volume fraction] 29.4 % Low 40-54 [facility] Comment on above: Performed By: #### L 100.0100, L500.2500 ####[facility] [address] [place], [address] Hemoglobin (Bld) [Mass/Vol] 8.8 g/dL Low 13.0-16.5 [facility] Comment on above: Performed By: #### L 100.0100, L500.2500 ####[facility] [id number] [place], [address] IG% 0.500 Normal 0.0-0.9 [facility] Comment on above: Result Comment: IG% - Immature Granulocytes (promyelocytes, myelocytes andmetamyelocytes) > 1% indicates that a LEFT SHIFT is Present. Performed By: #### L 100.0100, L500.2500 ####[facility] [id number] [place], [address] Lymphocytes/100 WBC (Bld) 23.0 % Normal 19-41 [facility] Comment on above: Performed By: #### L 100.0100, L500.2500 ####[facility] [address] [place], [address] MCH (RBC) [Entitic mass] 25.4 pg Low 27.0-32.0 [facility] Comment on above: Performed By: #### L 100.0100, L500.2500 ####[facility] [address] [place], [address] MCHC (RBC) [Mass/Vol] 29.9 g/dL Low 32-36 [facility] Comment on above: Performed By: #### L 100.0100, L500.2500 ####[facility] [address] [place], [address] MCV (RBC) [Entitic vol] 85.0 fL Normal 80-94 [facility] Comment on above: Performed By: #### L 100.0100, L500.2500 ####[facility] [address] [place], [address] Monocytes/100 WBC (Bld) 10.4 % High 0-10 [facility] Comment on above: Performed By: #### L 100.0100, L500.2500 ####[facility] [address] [place], [address] Neutrophils/100 WBC (Bld) 63.9 % Normal 47-70 [facility] Comment on above: Performed By: #### L 100.0100, L500.2500 ####[facility] [address] [place], [address] Nucleated RBC (Bld) [#/Vol] 0 10*3/uL Normal 0-5 [facility] Comment on above: Performed By: #### L 100.0100, L500.2500 ####[facility] [address] [place], [address] Platelet mean volume (Bld) [Entitic vol] 9.8 fL Normal 6.2-12.0 [facility] Comment on above: Performed By: #### L 100.0100, L500.2500 ####[facility] [address] [place], [address] Platelets (Bld) [#/Vol] 416 10*3/uL Normal 150-450 [facility] Comment on above: Performed By: #### L 100.0100, L500.2500 ####[facility] [address] [place], [address] RBC (Bld) [#/Vol] 3.46 10*6/uL Low 4.6-6.2 [facility] Comment on above: Performed By: #### L 100.0100, L500.2500 ####[facility] [address] [place], [address] RDW SD 44.5 fl High 35.1-43.9 [facility] Comment on above: Performed By: #### L 100.0100, L500.2500 ####[facility] [address] [place], [address] WBC (Bld) [#/Vol] 5.6 10*3/uL Normal 4.4-11.0 [facility] Comment on above: Performed By: #### L 100.0100, L500.2500 ####[facility] [address] [place], [address] Basic Metabolic Profile (BMP )on 05-01-2024 BUN/CRE 16.2 RATIO Normal 10-20 [facility] Comment on above: Performed By: #### L 100.0100, L500.2500 ####[facility] [address] [place], [address] CA,Total 9.3 mg/dL Normal 8.5-10.1 [facility] Comment on above: Performed By: #### L 100.0100, L500.2500 ####[facility] [address] [place], [address] Chloride [Moles/Vol] 96 mmol/L Low 98-107 [facility] Comment on above: Performed By: #### L 100.0100, L500.2500 ####[facility] [address] [place], [address] CO2 [Moles/Vol] 24.0 mmol/L Normal 21.0-32.0 [facility] Comment on above: Performed By: #### L 100.0100, L500.2500 ####[facility] [address] [place], [address] Creatinine [Mass/Vol] 1.30 mg/dL Normal 0.70-1.30 [facility] Comment on above: Result Comment: The validity of the calculated GFR GFRAA in patients over70 years has not been determined. Clinical correlation isessential. Performed By: #### L 100.0100, L500.2500 ####[facility] [address] [place], [address] ECRCL 42.37 ml/min Normal [facility] Comment on above: Performed By: #### L 100.0100, L500.2500 ####[facility] [address] [place], [address] EST GFR - AA 68 mL/min Normal >60 [facility] Comment on above: Result Comment: Afri can Egyptian GFR Calc Performed By: #### L 100.0100, L500.2500 ####[facility] [address] [place], [address] GAP 9 Normal 5-15 [facility] Comment on above: Performed By: #### L 100.0100, L500.2500 ####[facility] [address] [place], [address] GFR/1.73 sq M.predicted among non-blacks MDRD (S/P/Bld) [Vol rate/Area] 56 mL/min/{1.73_m2} Low >60 [facility] Comment on above: Result Comment: Non- GFR Calc Performed By: #### L 100.0100, L500.2500 ####[facility] [address] [place], [address] Glucose [Mass/Vol] 111 mg/dL High 74-106 [facility] Comment on above: Result Comment: Fast ing Glucose result from 100 to 125 mg/dLsuggests IMPAIRED HOMEOSTASIS per A.D.A. criteria. Performed By: #### L 100.0100, L500.2500 ####[facility] [address] [place], [address] Potassium [Moles/Vol] 4.2 mmol/L Normal 3.5-5.1 [facility] Comment on above: Performed By: #### L 100.0100, L500.2500 ####[facility] [address] [place], [address] Sodium [Moles/Vol] 128 mmol/L Low 136-145 [facility] Comment on above: Performed By: #### L 100.0100, L500.2500 ####[facility] [address] [place], [address] Urea nitrogen [Mass/Vol] 21 mg/dL High 7-18 [facility] Comment on above: Performed By: #### L 100.0100, L500.2500 ####[facility] [address] [place], [address] CBC W/Diff, Automatedon 10-0 -2023 Absolute Lymph 1.58 X10 3/uL Normal 0.83-4.51 [facility] Comment on above: Performed By: #### L 100.0100, L500.2500 ####[facility] [address] [place], [address] Absolute Neut 6.7 X10 3/uL Normal 2.0-7.7 [facility] Comment on above: Performed By: #### L 100.0100, L500.2500 ####[facility] [address] [place], [address] Basophils/100 WBC (Bld) 0.3 % Normal 0-1 [facility] Comment on above: Performed By: #### L 100.0100, L500.2500 ####[facility] [address] [place], [address] Eosinophils/100 WBC (Bld) 3.0 % Normal 0-5 [facility] Comment on above: Performed By: #### L 100.0100, L500.2500 ####[facility] [address] [place], [address] Erythrocyte distribution width (RBC) [Ratio] 14.2 % Normal 11.6-14.6 [facility] Comment on above: Performed By: #### L 100.0100, L500.2500 ####[facility] [address] [place], [address] Hematocrit (Bld) [Volume fraction] 30.5 % Low 40-54 [facility] Comment on above: Performed By: #### L 100.0100, L500.2500 ####[facility] [address] [place], [address] Hemoglobin (Bld) [Mass/Vol] 9.5 g/dL Low 13.0-16.5 [facility] Comment on above: Performed By: #### L 100.0100, L500.2500 ####[facility] [address] [place], [address] IG% 0.800 Normal 0.0-0.9 [facility] Comment on above: Result Comment: IG% - Immature Granulocytes (promyelocytes, myelocytes andmetamyelocytes) > 1% indicates that a LEFT SHIFT is Present. Performed By: #### L 100.0100, L500.2500 ####[facility] [address] [place], [address] Lymphocytes/100 WBC (Bld) 16.4 % Low 19-41 [facility] Comment on above: Performed By: #### L 100.0100, L500.2500 ####[facility] [address] [place], [address] MCH (RBC) [Entitic mass] 25.7 pg Low 27.0-32.0 [facility] Comment on above: Performed By: #### L 100.0100, L500.2500 ####[facility] [address] [place], [address] MCHC (RBC) [Mass/Vol] 31.1 g/dL Low 32-36 [facility] Comment on above: Performed By: #### L 100.0100, L500.2500 ####[facility] [address] [place], [address] MCV (RBC) [Entitic vol] 82.4 fL Normal 80-94 [facility] Comment on above: Performed By: #### L 100.0100, L500.2500 ####[facility] [address] [place], [address] Monocytes/100 WBC (Bld) 9.7 % Normal 0-10 [facility] Comment on above: Performed By: #### L 100.0100, L500.2500 ####[facility] [address] [place], [address] Neutrophils/100 WBC (Bld) 69.8 % Normal 47-70 [facility] Comment on above: Performed By: #### L 100.0100, L500.2500 ####[facility] [address] [place], [address] Nucleated RBC (Bld) [#/Vol] 0 10*3/uL Normal 0-5 [facility] Comment on above: Performed By: #### L 100.0100, L500.2500 ####[facility] [address] [place], [address] Platelet mean volume (Bld) [Entitic vol] 9.7 fL Normal 6.2-12.0 [facility] Comment on above: Performed By: #### L 100.0100, L500.2500 ####[facility] [address] [place], [address] Platelets (Bld) [#/Vol] 440 10*3/uL Normal 150-450 [facility] Comment on above: Performed By: #### L 100.0100, L500.2500 ####[facility] [address] [place], [address] RBC (Bld) [#/Vol] 3.70 10*6/uL Low 4.6-6.2 [facility] Comment on above: Performed By: #### L 100.0100, L500.2500 ####[facility] [address] [place], [address] RDW SD 42.2 fl Normal 35.1-43.9 [facility] Comment on above: Performed By: #### L 100.0100, L500.2500 ####[facility] [address] [place], [address] WBC (Bld) [#/Vol] 9.7 10*3/uL Normal 4.4-11.0 [facility] Comment on above: Performed By: #### L 100.0100, L500.2500 ####[facility] [address] [place], [address] Basic Metabolic Profile (BMP )on 04-30-2024 BUN/CRE 15.6 RATIO Normal 10-20 [facility] Comment on above: Performed By: #### L 100.0100, L500.2500 ####[facility] [address] [place], [address] CA,Total 9.0 mg/dL Normal 8.5-10.1 [facility] Comment on above: Performed By: #### L 100.0100, L500.2500 ####[facility] [address] [place], [address] Chloride [Moles/Vol] 101 mmol/L Normal 98-107 [facility] Comment on above: Performed By: #### L 100.0100, L500.2500 ####[facility] [address] [place], [address] CO2 [Moles/Vol] 24.0 mmol/L Normal 21.0-32.0 [facility] Comment on above: Performed By: #### L 100.0100, L500.2500 ####[facility] [address] [place], [address] Creatinine [Mass/Vol] 1.09 mg/dL Normal 0.70-1.30 [facility] Comment on above: Result Comment: The validity of the calculated GFR GFRAA in patients over70 years has not been determined. Clinical correlation isessential. Performed By: #### L 100.0100, L500.2500 ####[facility] [address] [place], [address] ECRCL 50.54 ml/min Normal [facility] Comment on above: Performed By: #### L 100.0100, L500.2500 ####[facility] [address] [place], [address] EST GFR - AA 84 mL/min Normal >60 [facility] Comment on above: Result Comment: Afri can Egyptian GFR Calc Performed By: #### L 100.0100, L500.2500 ####[facility] [address] [place], [address] GAP 9 Normal 5-15 [facility] Comment on above: Performed By: #### L 100.0100, L500.2500 ####[facility] [address] [place], [address] GFR/1.73 sq M.predicted among non-blacks MDRD (S/P/Bld) [Vol rate/Area] 69 mL/min/{1.73_m2} Normal >60 [facility] Comment on above: Result Comment: Non- GFR Calc Performed By: #### L 100.0100, L500.2500 ####[facility] [address] [place], [address] Glucose [Mass/Vol] 104 mg/dL Normal 74-106 [facility] Comment on above: Result Comment: Fast ing Glucose result from 100 to 125 mg/dLsuggests IMPAIRED HOMEOSTASIS per A.D.A. criteria. Performed By: #### L 100.0100, L500.2500 ####[facility] [address] [place], [address] Potassium [Moles/Vol] 4.0 mmol/L Normal 3.5-5.1 [facility] Comment on above: Performed By: #### L 100.0100, L500.2500 ####[facility] [address] [place], [address] Sodium [Moles/Vol] 134 mmol/L Low 136-145 [facility] Comment on above: Performed By: #### L 100.0100, L500.2500 ####[facility] [address] [place], [address] Urea nitrogen [Mass/Vol] 17 mg/dL Normal 7-18 [facility] Comment on above: Performed By: #### L 100.0100, L500.2500 ####[facility] [address] [place], [address] CBC W/Diff, Automatedon 09-3 0-2024 Absolute Lymph 1.45 X10 3/uL Normal 0.83-4.51 [facility] Comment on above: Performed By: #### L 100.0100, L500.2500 ####[facility] [address] [place], [address] Absolute Neut 5.7 X10 3/uL Normal 2.0-7.7 [facility] Comment on above: Performed By: #### L 100.0100, L500.2500 ####[facility] [address] [place], [address] Basophils/100 WBC (Bld) 0.1 % Normal 0-1 [facility] Comment on above: Performed By: #### L 100.0100, L500.2500 ####[facility] [address] [place], [address] Eosinophils/100 WBC (Bld) 1.3 % Normal 0-5 [facility] Comment on above: Performed By: #### L 100.0100, L500.2500 ####[facility] [address] [place], [address] Erythrocyte distribution width (RBC) [Ratio] 14.0 % Normal 11.6-14.6 [facility] Comment on above: Performed By: #### L 100.0100, L500.2500 ####[facility] [address] [place], [address] Hematocrit (Bld) [Volume fraction] 28.7 % Low 40-54 [facility] Comment on above: Performed By: #### L 100.0100, L500.2500 ####[facility] [address] [place], [address] Hemoglobin (Bld) [Mass/Vol] 9.1 g/dL Low 13.0-16.5 [facility] Comment on above: Performed By: #### L 100.0100, L500.2500 ####[facility] [address] [place], [address] IG% 0.600 Normal 0.0-0.9 [facility] Comment on above: Result Comment: IG% - Immature Granulocytes (promyelocytes, myelocytes andmetamyelocytes) > 1% indicates that a LEFT SHIFT is Present. Performed By: #### L 100.0100, L500.2500 ####[facility] [address] [place], [address] Lymphocytes/100 WBC (Bld) 17.6 % Low 19-41 [facility] Comment on above: Performed By: #### L 100.0100, L500.2500 ####[facility] [address] [place], [address] MCH (RBC) [Entitic mass] 26.0 pg Low 27.0-32.0 [facility] Comment on above: Performed By: #### L 100.0100, L500.2500 ####[facility] [address] [place], [address] MCHC (RBC) [Mass/Vol] 31.7 g/dL Low 32-36 [facility] Comment on above: Performed By: #### L 100.0100, L500.2500 ####[facility] [address] [place], [address] MCV (RBC) [Entitic vol] 82.0 fL Normal 80-94 [facility] Comment on above: Performed By: #### L 100.0100, L500.2500 ####[facility] [address] [place], [address] Monocytes/100 WBC (Bld) 11.8 % High 0-10 [facility] Comment on above: Performed By: #### L 100.0100, L500.2500 ####[facility] [address] [place], [address] Neutrophils/100 WBC (Bld) 68.6 % Normal 47-70 [facility] Comment on above: Performed By: #### L 100.0100, L500.2500 ####[facility] [address] [place], [address] Nucleated RBC (Bld) [#/Vol] 0 10*3/uL Normal 0-5 [facility] Comment on above: Performed By: #### L 100.0100, L500.2500 ####[facility] [address] [place], [address] Platelet mean volume (Bld) [Entitic vol] 9.7 fL Normal 6.2-12.0 [facility] Comment on above: Performed By: #### L 100.0100, L500.2500 ####[facility] [address] [place], [address] Platelets (Bld) [#/Vol] 360 10*3/uL Normal 150-450 [facility] Comment on above: Performed By: #### L 100.0100, L500.2500 ####[facility] [address] [place], [address] RBC (Bld) [#/Vol] 3.50 10*6/uL Low 4.6-6.2 [facility] Comment on above: Performed By: #### L 100.0100, L500.2500 ####[facility] [address] [place], [address] RDW SD 41.8 fl Normal 35.1-43.9 [facility] Comment on above: Performed By: #### L 100.0100, L500.2500 ####[facility] [address] [place], [address] WBC (Bld) [#/Vol] 8.2 10*3/uL Normal 4.4-11.0 [facility] Comment on above: Performed By: #### L 100.0100, L500.2500 ####[facility] [address] [place], [address] Basic Metabolic Profile (BMP )on 04-29-2024 BUN/CRE 13.0 RATIO Normal 10-20 [facility] Comment on above: Performed By: #### L 100.0100, L500.2500 ####[facility] [address] [place], [address] CA,Total 9.1 mg/dL Normal 8.5-10.1 [facility] Comment on above: Performed By: #### L 100.0100, L500.2500 ####[facility] [address] [place], [address] Chloride [Moles/Vol] 101 mmol/L Normal 98-107 [facility] Comment on above: Performed By: #### L 100.0100, L500.2500 ####[facility] [address] [place], [address] CO2 [Moles/Vol] 26.0 mmol/L Normal 21.0-32.0 [facility] Comment on above: Performed By: #### L 100.0100, L500.2500 ####[facility] [address] [place], [address] Creatinine [Mass/Vol] 1.08 mg/dL Normal 0.70-1.30 [facility] Comment on above: Result Comment: The validity of the calculated GFR GFRAA in patients over70 years has not been determined. Clinical correlation isessential. Performed By: #### L 100.0100, L500.2500 ####[facility] [address] [place], [address] ECRCL 51.00 ml/min Normal [facility] Comment on above: Performed By: #### L 100.0100, L500.2500 ####[facility] [address] [place], [address] EST GFR - AA 85 mL/min Normal >60 [facility] Comment on above: Result Comment: Afri can Egyptian GFR Calc Performed By: #### L 100.0100, L500.2500 ####[facility] [address] [place], [address] GAP 6 Normal 5-15 [facility] Comment on above: Performed By: #### L 100.0100, L500.2500 ####[facility] [address] [place], [address] GFR/1.73 sq M.predicted among non-blacks MDRD (S/P/Bld) [Vol rate/Area] 70 mL/min/{1.73_m2} Normal >60 [facility] Comment on above: Result Comment: Non- GFR Calc Performed By: #### L 100.0100, L500.2500 ####[facility] [address] [place], [address] Glucose [Mass/Vol] 109 mg/dL High 74-106 [facility] Comment on above: Result Comment: Fast ing Glucose result from 100 to 125 mg/dLsuggests IMPAIRED HOMEOSTASIS per A.D.A. criteria. Performed By: #### L 100.0100, L500.2500 ####[facility] [address] [place], [address] Potassium [Moles/Vol] 4.1 mmol/L Normal 3.5-5.1 [facility] Comment on above: Performed By: #### L 100.0100, L500.2500 ####[facility] [address] [place], [address] Sodium [Moles/Vol] 133 mmol/L Low 136-145 [facility] Comment on above: Performed By: #### L 100.0100, L500.2500 ####[facility] [address] [place], [address] Urea nitrogen [Mass/Vol] 14 mg/dL Normal 7-18 [facility] Comment on above: Performed By: #### L 100.0100, L500.2500 ####[facility] [address] [place], [address] CBC W/Diff, Automatedon 09-2 Absolute Lymph 1.60 X10 3/uL Normal 0.83-4.51 [facility] Comment on above: Performed By: #### L 100.0100, L500.2500 ####[facility] [address] [place], [address] Absolute Neut 6.7 X10 3/uL Normal 2.0-7.7 [facility] Comment on above: Performed By: #### L 100.0100, L500.2500 ####[facility] [address] [place], [address] Basophils/100 WBC (Bld) 0.1 % Normal 0-1 [facility] Comment on above: Performed By: #### L 100.0100, L500.2500 ####[facility] [address] [place], [address] Eosinophils/100 WBC (Bld) 0.3 % Normal 0-5 [facility] Comment on above: Performed By: #### L 100.0100, L500.2500 ####[facility] [address] [place], [address] Erythrocyte distribution width (RBC) [Ratio] 14.0 % Normal 11.6-14.6 [facility] Comment on above: Performed By: #### L 100.0100, L500.2500 ####[facility] [address] [place], [address] Hematocrit (Bld) [Volume fraction] 27.6 % Low 40-54 [facility] Comment on above: Performed By: #### L 100.0100, L500.2500 ####[facility] [address] [place], [address] Hemoglobin (Bld) [Mass/Vol] 8.6 g/dL Low 13.0-16.5 [facility] Comment on above: Performed By: #### L 100.0100, L500.2500 ####[facility] [address] [place], [address] IG% 0.500 Normal 0.0-0.9 [facility] Comment on above: Result Comment: IG% - Immature Granulocytes (promyelocytes, myelocytes andmetamyelocytes) > 1% indicates that a LEFT SHIFT is Present. Performed By: #### L 100.0100, L500.2500 ####[facility] [address] [place], [address] Lymphocytes/100 WBC (Bld) 17.1 % Low 19-41 [facility] Comment on above: Performed By: #### L 100.0100, L500.2500 ####[facility] [address] [place], [address] MCH (RBC) [Entitic mass] 26.2 pg Low 27.0-32.0 [facility] Comment on above: Performed By: #### L 100.0100, L500.2500 ####[facility] [address] [place], [address] MCHC (RBC) [Mass/Vol] 31.2 g/dL Low 32-36 [facility] Comment on above: Performed By: #### L 100.0100, L500.2500 ####[facility] [address] [place], [address] MCV (RBC) [Entitic vol] 84.1 fL Normal 80-94 [facility] Comment on above: Performed By: #### L 100.0100, L500.2500 ####[facility] [address] [place], [address] Monocytes/100 WBC (Bld) 10.0 % Normal 0-10 [facility] Comment on above: Performed By: #### L 100.0100, L500.2500 ####[facility] [address] [place], [address] Neutrophils/100 WBC (Bld) 72.0 % High 47-70 [facility] Comment on above: Performed By: #### L 100.0100, L500.2500 ####[facility] [address] [place], [address] Nucleated RBC (Bld) [#/Vol] 0 10*3/uL Normal 0-5 [facility] Comment on above: Performed By: #### L 100.0100, L500.2500 ####[facility] [address] [place], [address] Platelet mean volume (Bld) [Entitic vol] 9.8 fL Normal 6.2-12.0 [facility] Comment on above: Performed By: #### L 100.0100, L500.2500 ####[facility] [address] [place], [address] Platelets (Bld) [#/Vol] 345 10*3/uL Normal 150-450 [facility] Comment on above: Performed By: #### L 100.0100, L500.2500 ####[facility] [facility] [address] [place], [address] RBC (Bld) [#/Vol] 3.28 10*6/uL Low 4.6-6.2 [facility] Comment on above: Performed By: #### L 100.0100, L500.2500 ####[facility] [address] [place], [address] RDW SD 42.7 fl Normal 35.1-43.9 [facility] Comment on above: Performed By: #### L 100.0100, L500.2500 ####[facility] [address] [place], [address] WBC (Bld) [#/Vol] 9.4 10*3/uL Normal 4.4-11.0 [facility] Comment on above: Performed By: #### L 100.0100, L500.2500 ####[facility] [address] [place], [address] Basic Metabolic Profile (BMP )on 04-28-2024 BUN/CRE 13.7 RATIO Normal 10-20 [facility] Comment on above: Performed By: #### L 100.0500, L500.2500 ####[facility] [address] [place], [address] CA,Total 8.2 mg/dL Low 8.5-10.1 [facility] Comment on above: Performed By: #### L 100.0500, L500.2500 ####[facility] [address] [place], [address] Chloride [Moles/Vol] 101 mmol/L Normal 98-107 [facility] Comment on above: Performed By: #### L 100.0500, L500.2500 ####[facility] [address] [place], [address] CO2 [Moles/Vol] 26.0 mmol/L Normal 21.0-32.0 [facility] Comment on above: Performed By: #### L 100.0500, L500.2500 ####[facility] [address] [place], [address] Creatinine [Mass/Vol] 1.31 mg/dL High 0.70-1.30 [facility] Comment on above: Result Comment: The validity of the calculated GFR GFRAA in patients over70 years has not been determined. Clinical correlation isessential. Performed By: #### L 100.0500, L500.2500 ####[facility] [address] [place], [address] ECRCL 42.05 ml/min Normal [facility] Comment on above: Performed By: #### L 100.0500, L500.2500 ####[facility] [address] [place], [address] EST GFR - AA 68 mL/min Normal >60 [facility] Comment on above: Result Comment: Afri can Egyptian GFR Calc Performed By: #### L 100.0500, L500.2500 ####[facility] [address] [place], [address] GAP 4 Low 5-15 [facility] Comment on above: Performed By: #### L 100.0500, L500.2500 ####[facility] [address] [place], [address] GFR/1.73 sq M.predicted among non-blacks MDRD (S/P/Bld) [Vol rate/Area] 56 mL/min/{1.73_m2} Low >60 [facility] Comment on above: Result Comment: Non- GFR Calc Performed By: #### L 100.0500, L500.2500 ####[facility] [address] [place], [address] Glucose [Mass/Vol] 130 mg/dL High 74-106 [facility] Comment on above: Result Comment: Fast ing Glucose result greater than or equal to 126 mg/dLsuggests DIABETES MELLITUS per A.D.A. criteria. Performed By: #### L 100.0500, L500.2500 ####[facility] [address] [place], [address] Potassium [Moles/Vol] 4.4 mmol/L Normal 3.5-5.1 [facility] Comment on above: Performed By: #### L 100.0500, L500.2500 ####[facility] [address] [place], [address] Sodium [Moles/Vol] 131 mmol/L Low 136-145 [facility] Comment on above: Performed By: #### L 100.0500, L500.2500 ####[facility] [address] [place], [address] Urea nitrogen [Mass/Vol] 18 mg/dL Normal 7-18 [facility] Comment on above: Performed By: #### L 100.0500, L500.2500 ####[facility] [address] [place], [address] CBC-Complete Blood Cnt No Di ffon 04-28-2024 Erythrocyte distribution width (RBC) [Ratio] 14.0 % Normal 11.6-14.6 [facility] Comment on above: Performed By: #### L 100.0500, L500.2500 ####[facility] [address] [place], [address] Hematocrit (Bld) [Volume fraction] 26.3 % Low 40-54 [facility] Comment on above: Performed By: #### L 100.0500, L500.2500 ####[facility] [address] [place], [address] Hemoglobin (Bld) [Mass/Vol] 8.1 g/dL Low 13.0-16.5 [facility] Comment on above: Performed By: #### L 100.0500, L500.2500 ####[facility] [address] [place], [address] MCH (RBC) [Entitic mass] 26.1 pg Low 27.0-32.0 [facility] Comment on above: Performed By: #### L 100.0500, L500.2500 ####[facility] [address] [place], [address] MCHC (RBC) [Mass/Vol] 30.8 g/dL Low 32-36 [facility] Comment on above: Performed By: #### L 100.0500, L500.2500 ####[facility] [address] [place], [address] MCV (RBC) [Entitic vol] 84.8 fL Normal 80-94 [facility] Comment on above: Performed By: #### L 100.0500, L500.2500 ####[facility] [address] [place], [address] Platelet mean volume (Bld) [Entitic vol] 10.2 fL Normal 6.2-12.0 [facility] Comment on above: Performed By: #### L 100.0500, L500.2500 ####[facility] [address] [place], [address] Platelets (Bld) [#/Vol] 296 10*3/uL Normal 150-450 [facility] Comment on above: Performed By: #### L 100.0500, L500.2500 ####[facility] [address] [place], [address] RBC (Bld) [#/Vol] 3.10 10*6/uL Low 4.6-6.2 [facility] Comment on above: Performed By: #### L 100.0500, L500.2500 ####[facility] [address] [place], [address] RDW SD 43.3 fl Normal 35.1-43.9 [facility] Comment on above: Performed By: #### L 100.0500, L500.2500 ####[facility] [address] [place], [address] WBC (Bld) [#/Vol] 9.1 10*3/uL Normal 4.4-11.0 [facility] Comment on above: Performed By: #### L 100.0500, L500.2500 ####[facility] [address] [place], [address] Bedside Glucoseon 04-27-2024 FINGERSTICK GLU 113 mg/dL High 74-106 [facility] Comment on above: Result Comment: STELLA FLORES OF PATIENT CARE PER NURSING PROTOCOL Performed By: #### L 501.080 ####[facility] [address] [place], [address] CBC-Complete Blood Cnt No Di ffon 04-27-2024 Erythrocyte distribution width (RBC) [Ratio] 13.7 % Normal 11.6-14.6 [facility] Comment on above: Performed By: #### L 100.0500 ####[facility] [address] [place], [address] Hematocrit (Bld) [Volume fraction] 30.5 % Low 40-54 [facility] Comment on above: Performed By: #### L 100.0500 ####[facility] [address] [place], [address] Hemoglobin (Bld) [Mass/Vol] 9.4 g/dL Low 13.0-16.5 [facility] Comment on above: Performed By: #### L 100.0500 ####[facility] [address] [place], [address] MCH (RBC) [Entitic mass] 26.0 pg Low 27.0-32.0 [facility] Comment on above: Performed By: #### L 100.0500 ####[facility] [address] [place], [address] MCHC (RBC) [Mass/Vol] 30.8 g/dL Low 32-36 [facility] Comment on above: Performed By: #### L 100.0500 ####[facility] [address] [place], [address] MCV (RBC) [Entitic vol] 84.3 fL Normal 80-94 [facility] Comment on above: Performed By: #### L 100.0500 ####[facility] [address] [place], [address] Platelet mean volume (Bld) [Entitic vol] 9.7 fL Normal 6.2-12.0 [facility] Comment on above: Performed By: #### L 100.0500 ####[facility] [address] [place], [address] Platelets (Bld) [#/Vol] 346 10*3/uL Normal 150-450 [facility] Comment on above: Performed By: #### L 100.0500 ####[facility] [address] [place], [address] RBC (Bld) [#/Vol] 3.62 10*6/uL Low 4.6-6.2 [facility] Comment on above: Performed By: #### L 100.0500 ####[facility] [address] [place], [address] RDW SD 42.4 fl Normal 35.1-43.9 [facility] Comment on above: Performed By: #### L 100.0500 ####[facility] [address] [place], [address] WBC (Bld) [#/Vol] 7.1 10*3/uL Normal 4.4-11.0 [facility] Comment on above: Performed By: #### L 100.0500 ####[facility] [address] [place], [address] MLH-1 (add)on 04-27-2024 MLH-1 (add) Normal [facility] Comment on above: Performed By: #### P MLH1. ####[facility] [address] [place], [address] MR/POSTOP.ANEon 04-27-2024 MR/POSTOP.ANE Normal [facility] MR/JYTEERQC9fh 04-27-2024 MR/POSTOPAN2 Normal [facility] Magnesiumon 04-27-2024 Magnesium [Mass/Vol] 1.9 mg/dL Normal 1.6-2.6 [facility] Comment on above: Performed By: #### L 501.5200 ####[facility] [address] [place], [address] Operative Reporton Operative Report Normal [facility] Surgery Specimen Level VIon 04-27-2024 Surgery Specimen Level Normal [facility] Comment on above: Performed By: #### P SUVI ####[facility] [address] [place], [address] Cardiology Visit Reporton Cardiology Visit Report Normal [facility] Surgery Visit Reporton 04-20 Surgery Visit Report Normal [facility] CBC W/Diff, Automatedon 04-01 Absolute Lymph 1.42 X10 3/uL Normal 0.83-4.51 [facility] Comment on above: Performed By: #### L 100.0100 ####[facility] [address] [place], [address] Absolute Neut 3.1 X10 3/uL Normal 2.0-7.7 [facility] Comment on above: Performed By: #### L 100.0100 ####[facility] [address] [place], [address] Basophils/100 WBC (Bld) 0.5 % Normal 0-1 [facility] Comment on above: Performed By: #### L 100.0100 ####[facility] [address] [place], [address] Eosinophils/100 WBC (Bld) 5.9 % High 0-5 [facility] Comment on above: Performed By: #### L 100.0100 ####[facility] [address] [place], [address] Erythrocyte distribution width (RBC) [Ratio] 13.4 % Normal 11.6-14.6 [facility] Comment on above: Performed By: #### L 100.0100 ####[facility] [address] [place], [address] Hematocrit (Bld) [Volume fraction] 30.5 % Low 40-54 [facility] Comment on above: Performed By: #### L 100.0100 ####[facility] [address] [place], [address] Hemoglobin (Bld) [Mass/Vol] 9.3 g/dL Low 13.0-16.5 [facility] Comment on above: Performed By: #### L 100.0100 ####[facility] [address] [place], [address] IG% 0.200 Normal 0.0-0.9 [facility] Comment on above: Result Comment: IG% - Immature Granulocytes (promyelocytes, myelocytes andmetamyelocytes) > 1% indicates that a LEFT SHIFT is Present. Performed By: #### L 100.0100 ####[facility] [address] [place], [address] Lymphocytes/100 WBC (Bld) 25.6 % Normal 19-41 [facility] Comment on above: Performed By: #### L 100.0100 ####[facility] [address] [place], [address] MCH (RBC) [Entitic mass] 26.2 pg Low 27.0-32.0 [facility] Comment on above: Performed By: #### L 100.0100 ####[facility] [address] [place], [address] MCHC (RBC) [Mass/Vol] 30.5 g/dL Low 32-36 [facility] Comment on above: Performed By: #### L 100.0100 ####[facility] [address] [place], [address] MCV (RBC) [Entitic vol] 85.9 fL Normal 80-94 [facility] Comment on above: Performed By: #### L 100.0100 ####[facility] [address] [place], [address] Monocytes/100 WBC (Bld) 12.1 % High 0-10 [facility] Comment on above: Performed By: #### L 100.0100 ####[facility] [address] [place], [address] Neutrophils/100 WBC (Bld) 55.7 % Normal 47-70 [facility] Comment on above: Performed By: #### L 100.0100 ####[facility] [address] [place], [address] Nucleated RBC (Bld) [#/Vol] 0 10*3/uL Normal 0-5 [facility] Comment on above: Performed By: #### L 100.0100 ####[facility] [address] [place], [address] Platelet mean volume (Bld) [Entitic vol] 9.3 fL Normal 6.2-12.0 [facility] Comment on above: Performed By: #### L 100.0100 ####[facility] [address] [place], [address] Platelets (Bld) [#/Vol] 303 10*3/uL Normal 150-450 [facility] Comment on above: Performed By: #### L 100.0100 ####[facility] [address] [place], [address] RBC (Bld) [#/Vol] 3.55 10*6/uL Low 4.6-6.2 [facility] Comment on above: Performed By: #### L 100.0100 ####[facility] [address] [place], [address] RDW SD 42.2 fl Normal 35.1-43.9 [facility] Comment on above: Performed By: #### L 100.0100 ####[facility] [address] [place], [address] WBC (Bld) [#/Vol] 5.6 10*3/uL Normal 4.4-11.0 [facility] Comment on above: Performed By: #### L 100.0100 ####[facility] [address] [place], [address] Basic Metabolic Profile (BMP )on 04-14-2024 BUN/CRE 13.0 RATIO Normal 10-20 [facility] Comment on above: Performed By: #### L 100.0100, L500.2500 ####[facility] [address] [place], [address] CA,Total 8.1 mg/dL Low 8.5-10.1 [facility] Comment on above: Performed By: #### L 100.0100, L500.2500 ####[facility] [address] [place], [address] Chloride [Moles/Vol] 108 mmol/L High 98-107 [facility] Comment on above: Performed By: #### L 100.0100, L500.2500 ####[facility] [address] [place], [address] CO2 [Moles/Vol] 23.0 mmol/L Normal 21.0-32.0 [facility] Comment on above: Performed By: #### L 100.0100, L500.2500 ####[facility] [address] [place], [address] Creatinine [Mass/Vol] 1.23 mg/dL Normal 0.70-1.30 [facility] Comment on above: Result Comment: The validity of the calculated GFR GFRAA in patients over70 years has not been determined. Clinical correlation isessential. Performed By: #### L 100.0100, L500.2500 ####[facility] [address] [place], [address] ECRCL 44.78 ml/min Normal [facility] Comment on above: Performed By: #### L 100.0100, L500.2500 ####[facility] [address] [place], [address] EST GFR - AA 73 mL/min Normal >60 [facility] Comment on above: Result Comment: Afri can Egyptian GFR Calc Performed By: #### L 100.0100, L500.2500 ####[facility] [address] [place], [address] GAP 7 Normal 5-15 [facility] Comment on above: Performed By: #### L 100.0100, L500.2500 ####[facility] [address] [place], [address] GFR/1.73 sq M.predicted among non-blacks MDRD (S/P/Bld) [Vol rate/Area] 60 mL/min/{1.73_m2} Normal >60 [facility] Comment on above: Result Comment: Non- GFR Calc Performed By: #### L 100.0100, L500.2500 ####[facility] [address] [place], [address] Glucose [Mass/Vol] 105 mg/dL Normal 74-106 [facility] Comment on above: Result Comment: Fast ing Glucose result from 100 to 125 mg/dLsuggests IMPAIRED HOMEOSTASIS per A.D.A. criteria. Performed By: #### L 100.0100, L500.2500 ####[facility] [address] [place], [address] Potassium [Moles/Vol] 3.4 mmol/L Low 3.5-5.1 [facility] Comment on above: Performed By: #### L 100.0100, L500.2500 ####[facility] [address] [place], [address] Sodium [Moles/Vol] 138 mmol/L Normal 136-145 [facility] Comment on above: Performed By: #### L 100.0100, L500.2500 ####[facility] [address] [place], [address] Urea nitrogen [Mass/Vol] 16 mg/dL Normal 7-18 [facility] Comment on above: Performed By: #### L 100.0100, L500.2500 ####[facility] [address] [place], [address] CBC W/Diff, Automatedon 09-08 04-2023 Absolute Lymph 1.52 X10 3/uL Normal 0.83-4.51 [facility] Comment on above: Performed By: #### L 100.0100, L500.2500 ####[facility] [address] [place], [address] Absolute Neut 4.8 X10 3/uL Normal 2.0-7.7 [facility] Comment on above: Performed By: #### L 100.0100, L500.2500 ####[facility] [address] [place], [address] Basophils/100 WBC (Bld) 0.1 % Normal 0-1 [facility] Comment on above: Performed By: #### L 100.0100, L500.2500 ####[facility] [address] [place], [address] Eosinophils/100 WBC (Bld) 3.4 % Normal 0-5 [facility] Comment on above: Performed By: #### L 100.0100, L500.2500 ####[facility] [address] [place], [address] Erythrocyte distribution width (RBC) [Ratio] 13.4 % Normal 11.6-14.6 [facility] Comment on above: Performed By: #### L 100.0100, L500.2500 ####[facility] [address] [place], [address] Hematocrit (Bld) [Volume fraction] 30.9 % Low 40-54 [facility] Comment on above: Performed By: #### L 100.0100, L500.2500 ####[facility] [address] [place], [address] Hemoglobin (Bld) [Mass/Vol] 9.5 g/dL Low 13.0-16.5 [facility] Comment on above: Performed By: #### L 100.0100, L500.2500 ####[facility] [address] [place], [address] IG% 0.300 Normal 0.0-0.9 [facility] Comment on above: Result Comment: IG% - Immature Granulocytes (promyelocytes, myelocytes andmetamyelocytes) > 1% indicates that a LEFT SHIFT is Present. Performed By: #### L 100.0100, L500.2500 ####[facility] [address] [place], [address] Lymphocytes/100 WBC (Bld) 20.1 % Normal 19-41 [facility] Comment on above: Performed By: #### L 100.0100, L500.2500 ####[facility] [address] [place], [address] MCH (RBC) [Entitic mass] 26.2 pg Low 27.0-32.0 [facility] Comment on above: Performed By: #### L 100.0100, L500.2500 ####[facility] [address] [place], [address] MCHC (RBC) [Mass/Vol] 30.7 g/dL Low 32-36 [facility] Comment on above: Performed By: #### L 100.0100, L500.2500 ####[facility] [address] [place], [address] MCV (RBC) [Entitic vol] 85.4 fL Normal 80-94 [facility] Comment on above: Performed By: #### L 100.0100, L500.2500 ####[facility] [address] [place], [address] Monocytes/100 WBC (Bld) 12.2 % High 0-10 [facility] Comment on above: Performed By: #### L 100.0100, L500.2500 ####[facility] [address] [place], [address] Neutrophils/100 WBC (Bld) 63.9 % Normal 47-70 [facility] Comment on above: Performed By: #### L 100.0100, L500.2500 ####[facility] [address] [place], [address] Nucleated RBC (Bld) [#/Vol] 0 10*3/uL Normal 0-5 [facility] Comment on above: Performed By: #### L 100.0100, L500.2500 ####[facility] [address] [place], [address] Platelet mean volume (Bld) [Entitic vol] 9.4 fL Normal 6.2-12.0 [facility] Comment on above: Performed By: #### L 100.0100, L500.2500 ####[facility] [address] [place], [address] Platelets (Bld) [#/Vol] 321 10*3/uL Normal 150-450 [facility] Comment on above: Performed By: #### L 100.0100, L500.2500 ####[facility] [address] [place], [address] RBC (Bld) [#/Vol] 3.62 10*6/uL Low 4.6-6.2 [facility] Comment on above: Performed By: #### L 100.0100, L500.2500 ####[facility] [address] [place], [address] RDW SD 42.0 fl Normal 35.1-43.9 [facility] Comment on above: Performed By: #### L 100.0100, L500.2500 ####[facility] [address] [place], [address] WBC (Bld) [#/Vol] 7.6 10*3/uL Normal 4.4-11.0 [facility] Comment on above: Performed By: #### L 100.0100, L500.2500 ####[facility] [address] [place], [address] MR/PN.GIon 04-14-2024 MR/PN.GI Normal [facility] Basic Metabolic Profile (BMP )on 04-13-2024 BUN/CRE 12.6 RATIO Normal 10-20 [facility] Comment on above: Performed By: #### L 100.0100, L500.2500 ####[facility] [address] [place], [address] CA,Total 8.9 mg/dL Normal 8.5-10.1 [facility] Comment on above: Performed By: #### L 100.0100, L500.2500 ####[facility] [address] [place], [address] Chloride [Moles/Vol] 106 mmol/L Normal 98-107 [facility] Comment on above: Performed By: #### L 100.0100, L500.2500 ####[facility] [address] [place], [address] CO2 [Moles/Vol] 24.0 mmol/L Normal 21.0-32.0 [facility] Comment on above: Performed By: #### L 100.0100, L500.2500 ####[facility] [address] [place], [address] Creatinine [Mass/Vol] 1.19 mg/dL Normal 0.70-1.30 [facility] Comment on above: Result Comment: The validity of the calculated GFR GFRAA in patients over70 years has not been determined. Clinical correlation isessential. Performed By: #### L 100.0100, L500.2500 ####[facility] [address] [place], [address] ECRCL 46.29 ml/min Normal [facility] Comment on above: Performed By: #### L 100.0100, L500.2500 ####[facility] [address] [place], [address] EST GFR - AA 76 mL/min Normal >60 [facility] Comment on above: Result Comment: Afri can Egyptian GFR Calc Performed By: #### L 100.0100, L500.2500 ####[facility] [address] [place], [address] GAP 8 Normal 5-15 [facility] Comment on above: Performed By: #### L 100.0100, L500.2500 ####[facility] [address] [place], [address] GFR/1.73 sq M.predicted among non-blacks MDRD (S/P/Bld) [Vol rate/Area] 63 mL/min/{1.73_m2} Normal >60 [facility] Comment on above: Result Comment: Non- GFR Calc Performed By: #### L 100.0100, L500.2500 ####[facility] [address] [place], [address] Glucose [Mass/Vol] 99 mg/dL Normal 74-106 [facility] Comment on above: Performed By: #### L 100.0100, L500.2500 ####[facility] [address] [place], [address] Potassium [Moles/Vol] 3.6 mmol/L Normal 3.5-5.1 [facility] Comment on above: Performed By: #### L 100.0100, L500.2500 ####[facility] [address] [place], [address] Sodium [Moles/Vol] 138 mmol/L Normal 136-145 [facility] Comment on above: Performed By: #### L 100.0100, L500.2500 ####[facility] [address] [place], [address] Urea nitrogen [Mass/Vol] 15 mg/dL Normal 7-18 [facility] [facility] Comment on above: Performed By: #### L 100.0100, L500.2500 ####[facility] [address] [place], [address] CBC W/Diff, Automatedon 04-01-2023 Absolute Lymph 1.30 X10 3/uL Normal 0.83-4.51 [facility] Comment on above: Performed By: #### L 100.0100, L500.2500 ####[facility] [address] [place], [address] Absolute Neut 3.5 X10 3/uL Normal 2.0-7.7 [facility] Comment on above: Performed By: #### L 100.0100, L500.2500 ####[facility] [address] [place], [address] Basophils/100 WBC (Bld) 0.2 % Normal 0-1 [facility] Comment on above: Performed By: #### L 100.0100, L500.2500 ####[facility] [address] [place], [address] Eosinophils/100 WBC (Bld) 2.8 % Normal 0-5 [facility] Comment on above: Performed By: #### L 100.0100, L500.2500 ####[facility] [address] [place], [address] Erythrocyte distribution width (RBC) [Ratio] 13.4 % Normal 11.6-14.6 [facility] Comment on above: Performed By: #### L 100.0100, L500.2500 ####[facility] [address] [place], [address] Hematocrit (Bld) [Volume fraction] 34.1 % Low 40-54 [facility] Comment on above: Performed By: #### L 100.0100, L500.2500 ####[facility] [address] [place], [address] Hemoglobin (Bld) [Mass/Vol] 10.8 g/dL Low 13.0-16.5 [facility] Comment on above: Performed By: #### L 100.0100, L500.2500 ####[facility] [address] [place], [address] IG% 0.300 Normal 0.0-0.9 [facility] Comment on above: Result Comment: IG% - Immature Granulocytes (promyelocytes, myelocytes andmetamyelocytes) > 1% indicates that a LEFT SHIFT is Present. Performed By: #### L 100.0100, L500.2500 ####[facility] [address] [place], [address] Lymphocytes/100 WBC (Bld) 22.6 % Normal 19-41 [facility] Comment on above: Performed By: #### L 100.0100, L500.2500 ####[facility] [address] [place], [address] MCH (RBC) [Entitic mass] 26.7 pg Low 27.0-32.0 [facility] Comment on above: Performed By: #### L 100.0100, L500.2500 ####[facility] [address] [place], [address] MCHC (RBC) [Mass/Vol] 31.7 g/dL Low 32-36 [facility] Comment on above: Performed By: #### L 100.0100, L500.2500 ####[facility] [address] [place], [address] MCV (RBC) [Entitic vol] 84.4 fL Normal 80-94 [facility] Comment on above: Performed By: #### L 100.0100, L500.2500 ####[facility] [address] [place], [address] Monocytes/100 WBC (Bld) 12.5 % High 0-10 [facility] Comment on above: Performed By: #### L 100.0100, L500.2500 ####[facility] [address] [place], [address] Neutrophils/100 WBC (Bld) 61.6 % Normal 47-70 [facility] Comment on above: Performed By: #### L 100.0100, L500.2500 ####[facility] [address] [place], [address] Nucleated RBC (Bld) [#/Vol] 0 10*3/uL Normal 0-5 [facility] Comment on above: Performed By: #### L 100.0100, L500.2500 ####[facility] [address] [place], [address] Platelet mean volume (Bld) [Entitic vol] 9.4 fL Normal 6.2-12.0 [facility] Comment on above: Performed By: #### L 100.0100, L500.2500 ####[facility] [address] [place], [address] Platelets (Bld) [#/Vol] 343 10*3/uL Normal 150-450 [facility] Comment on above: Performed By: #### L 100.0100, L500.2500 ####[facility] [address] [place], [address] RBC (Bld) [#/Vol] 4.04 10*6/uL Low 4.6-6.2 [facility] Comment on above: Performed By: #### L 100.0100, L500.2500 ####[facility] [address] [place], [address] RDW SD 41.8 fl Normal 35.1-43.9 [facility] Comment on above: Performed By: #### L 100.0100, L500.2500 ####[facility] [address] [place], [address] WBC (Bld) [#/Vol] 5.8 10*3/uL Normal 4.4-11.0 [facility] Comment on above: Performed By: #### L 100.0100, L500.2500 ####[facility] [address] [place], [address] Carcinoembryonic Antigenon 0 04-13-2024 CEA 2.7 ng/mL Normal 0.0-4.7 [facility] Comment on above: Result Comment: Nons mokers <3.9 Smokers <5.6[employer] Electrochemiluminescence Immunoassay(ECLIA)Values obtained with different assay methods or kitscannot be used interchangeably. Results cannot beinterpreted as absolute evidence of the presence orabsence of malignant disease.Performed at: [address] [id number] Director: Jian Paredes PhD, Phone: [phone] Performed By: #### L 4101.0498 ####[facility] [address] [place], [address] Colonoscopy Reporton 024 Colonoscopy Report Normal [facility] HER-2-DIONNA (initial)on 2023 HER-2-DIONNA (initial) Normal [facility] Comment on above: Performed By: #### P HER2 ####[facility] [address] [place], [address] MR/POSTOP.ANEon 04-13-2024 MR/POSTOP.ANE Normal [facility] MR/BDGZUZZY6mi 04-13-2024 MR/POSTOPAN2 Normal [facility] Partial Thromboplast Timeon 04-13-2024 aPTT Coag (Bld) [Time] 29.4 s Normal 24.1-36.2 [facility] Comment on above: Performed By: #### L 300.3900, L300.4310 ####[facility] [address] [place], [address] Prothrombin Time w/INRon INR Coag (PPP) [Relative time] 1.1 {INR} Normal [facility] Comment on above: Performed By: #### L 300.3900, L300.4310 ####[facility] [address] [place], [address] PT Coag (PPP) [Time] 14.6 s Normal 11.7-14.9 [facility] Comment on above: Performed By: #### L 300.3900, L300.4310 ####[facility] [address] [place], [address] Special Stain Group Ion 04-01 Special Stain Group I Normal [facility] Comment on above: Performed By: #### P SSI ####[facility] [address] [place], [address] CBC W/Diff, Automatedon 04-01 Absolute Lymph 1.44 X10 3/uL Normal 0.83-4.51 [facility] Comment on above: Performed By: #### L 501.2300, L100.0100, L500.4050, L501.9520, L501.5200 ####[facility] [address] [place], [address] Absolute Neut 3.5 X10 3/uL Normal 2.0-7.7 [facility] Comment on above: Performed By: #### L 501.2300, L100.0100, L500.4050, L501.9520, L501.5200 ####[facility] [address] [place], [address] Basophils/100 WBC (Bld) 0.4 % Normal 0-1 [facility] Comment on above: Performed By: #### L 501.2300, L100.0100, L500.4050, L501.9520, L501.5200 ####[facility] [address] [place], [address] Eosinophils/100 WBC (Bld) 1.8 % Normal 0-5 [facility] Comment on above: Performed By: #### L 501.2300, L100.0100, L500.4050, L501.9520, L501.5200 ####[facility] [address] [place], [address] Erythrocyte distribution width (RBC) [Ratio] 13.3 % Normal 11.6-14.6 [facility] Comment on above: Performed By: #### L 501.2300, L100.0100, L500.4050, L501.9520, L501.5200 ####[facility] [address] [place], [address] Hematocrit (Bld) [Volume fraction] 32.7 % Low 40-54 [facility] Comment on above: Performed By: #### L 501.2300, L100.0100, L500.4050, L501.9520, L501.5200 ####[facility] [address] [place], [address] Hemoglobin (Bld) [Mass/Vol] 10.5 g/dL Low 13.0-16.5 [facility] Comment on above: Performed By: #### L 501.2300, L100.0100, L500.4050, L501.9520, L501.5200 ####[facility] [address] [place], [address] IG% 0.500 Normal 0.0-0.9 [facility] Comment on above: Result Comment: IG% - Immature Granulocytes (promyelocytes, myelocytes andmetamyelocytes) > 1% indicates that a LEFT SHIFT is Present. Performed By: #### L 501.2300, L100.0100, L500.4050, L501.9520, L501.5200 ####[facility] [address] [place], [address] Lymphocytes/100 WBC (Bld) 25.3 % Normal 19-41 [facility] Comment on above: Performed By: #### L 501.2300, L100.0100, L500.4050, L501.9520, L501.5200 ####[facility] [address] [place], [address] MCH (RBC) [Entitic mass] 27.5 pg Normal 27.0-32.0 [facility] Comment on above: Performed By: #### L 501.2300, L100.0100, L500.4050, L501.9520, L501.5200 ####[facility] [address] [place], [address] MCHC (RBC) [Mass/Vol] 32.1 g/dL Normal 32-36 [facility] Comment on above: Performed By: #### L 501.2300, L100.0100, L500.4050, L501.9520, L501.5200 ####[facility] [address] [place], [address] MCV (RBC) [Entitic vol] 85.6 fL Normal 80-94 [facility] Comment on above: Performed By: #### L 501.2300, L100.0100, L500.4050, L501.9520, L501.5200 ####[facility] [address] [place], [address] Monocytes/100 WBC (Bld) 10.5 % High 0-10 [facility] Comment on above: Performed By: #### L 501.2300, L100.0100, L500.4050, L501.9520, L501.5200 ####[facility] [address] [place], [address] Neutrophils/100 WBC (Bld) 61.5 % Normal 47-70 [facility] Comment on above: Performed By: #### L 501.2300, L100.0100, L500.4050, L501.9520, L501.5200 ####[facility] [address] [place], [address] Nucleated RBC (Bld) [#/Vol] 0 10*3/uL Normal 0-5 [facility] Comment on above: Performed By: #### L 501.2300, L100.0100, L500.4050, L501.9520, L501.5200 ####[facility] [address] [place], [address] Platelet mean volume (Bld) [Entitic vol] 9.2 fL Normal 6.2-12.0 [facility] Comment on above: Performed By: #### L 501.2300, L100.0100, L500.4050, L501.9520, L501.5200 ####[facility] [address] [place], [address] Platelets (Bld) [#/Vol] 314 10*3/uL Normal 150-450 [facility] Comment on above: Performed By: #### L 501.2300, L100.0100, L500.4050, L501.9520, L501.5200 ####[facility] [address] [place], [address] RBC (Bld) [#/Vol] 3.82 10*6/uL Low 4.6-6.2 [facility] Comment on above: Performed By: #### L 501.2300, L100.0100, L500.4050, L501.9520, L501.5200 ####[facility] [address] [place], [address] RDW SD 41.6 fl Normal 35.1-43.9 [facility] Comment on above: Performed By: #### L 501.2300, L100.0100, L500.4050, L501.9520, L501.5200 ####[facility] [address] [place], [address] WBC (Bld) [#/Vol] 5.7 10*3/uL Normal 4.4-11.0 [facility] Comment on above: Performed By: #### L 501.2300, L100.0100, L500.4050, L501.9520, L501.5200 ####[facility] [address] [place], [address] Comprehensive Metabolic [facility] 04-12-2024 Albumin [Mass/Vol] 3.8 g/dL Normal 3.2-5.0 [facility] Comment on above: Performed By: #### L 501.2300, L100.0100, L500.4050, L501.9520, L501.5200 ####[facility] [address] [place], [address] Albumin/Globulin [Mass ratio] 1.1 {ratio} Normal 0.9-2.4 [facility] Comment on above: Performed By: #### L 501.2300, L100.0100, L500.4050, L501.9520, L501.5200 ####[facility] [address] [place], [address] ALK P 88 U/L Normal 45-117 [facility] Comment on above: Performed By: #### L 501.2300, L100.0100, L500.4050, L501.9520, L501.5200 ####[facility] [address] [place], [address] ALT [Catalytic activity/Vol] 22 U/L Normal 16-61 [facility] Comment on above: Performed By: #### L 501.2300, L100.0100, L500.4050, L501.9520, L501.5200 ####[facility] [address] [place], [address] AST [Catalytic activity/Vol] 20 U/L Normal 15-37 [facility] Comment on above: Performed By: #### L 501.2300, L100.0100, L500.4050, L501.9520, L501.5200 ####[facility] [address] [place], [address] Bilirubin [Mass/Vol] 0.90 mg/dL Normal 0.20-1.00 [facility] Comment on above: Result Comment: For patients on eltrombopag therapy, use of Dimension [place] TBIL is not recommended. Performed By: #### L 501.2300, L100.0100, L500.4050, L501.9520, L501.5200 ####[facility] [address] [place], [address] BUN/CRE 13.7 RATIO Normal 10-20 [facility] Comment on above: Performed By: #### L 501.2300, L100.0100, L500.4050, L501.9520, L501.5200 ####[facility] [address] [place], [address] CA,Total 8.9 mg/dL Normal 8.5-10.1 [facility] Comment on above: Performed By: #### L 501.2300, L100.0100, L500.4050, L501.9520, L501.5200 ####[facility] [address] [place], [address] Chloride [Moles/Vol] 104 mmol/L Normal 98-107 [facility] Comment on above: Performed By: #### L 501.2300, L100.0100, L500.4050, L501.9520, L501.5200 ####[facility] [address] [place], [address] CO2 [Moles/Vol] 29.0 mmol/L Normal 21.0-32.0 [facility] Comment on above: Performed By: #### L 501.2300, L100.0100, L500.4050, L501.9520, L501.5200 ####[facility] [address] [place], [address] Creatinine [Mass/Vol] 1.17 mg/dL Normal 0.70-1.30 [facility] Comment on above: Result Comment: The validity of the calculated GFR GFRAA in patients over70 years has not been determined. Clinical correlation isessential. Performed By: #### L 501.2300, L100.0100, L500.4050, L501.9520, L501.5200 ####[facility] [address] [place], [address] ECRCL 48.72 ml/min Normal [facility] Comment on above: Performed By: #### L 501.2300, L100.0100, L500.4050, L501.9520, L501.5200 ####[facility] [address] [place], [address] EST GFR - AA 77 mL/min Normal >60 [facility] Comment on above: Result Comment: Afri can Egyptian GFR Calc Performed By: #### L 501.2300, L100.0100, L500.4050, L501.9520, L501.5200 ####[facility] [address] [place], [address] GAP 4 Low 5-15 [facility] Comment on above: Performed By: #### L 501.2300, L100.0100, L500.4050, L501.9520, L501.5200 ####[facility] [address] [place], [address] GFR/1.73 sq M.predicted among non-blacks MDRD (S/P/Bld) [Vol rate/Area] 64 mL/min/{1.73_m2} Normal >60 [facility] Comment on above: Result Comment: Non- GFR Calc Performed By: #### L 501.2300, L100.0100, L500.4050, L501.9520, L501.5200 ####[facility] [address] [place], [address] Globulin (S) [Mass/Vol] 3.5 g/dL Normal 2.2-4.2 [facility] Comment on above: Performed By: #### L 501.2300, L100.0100, L500.4050, L501.9520, L501.5200 ####[facility] [address] [place], [address] Glucose [Mass/Vol] 98 mg/dL Normal 74-106 [facility] Comment on above: Performed By: #### L 501.2300, L100.0100, L500.4050, L501.9520, L501.5200 ####[facility] [address] [place], [address] Potassium [Moles/Vol] 3.5 mmol/L Normal 3.5-5.1 [facility] Comment on above: Performed By: #### L 501.2300, L100.0100, L500.4050, L501.9520, L501.5200 ####[facility] [address] [place], [address] Sodium [Moles/Vol] 137 mmol/L Normal 136-145 [facility] Comment on above: Performed By: #### L 501.2300, L100.0100, L500.4050, L501.9520, L501.5200 ####[facility] [address] [place], [address] T PROT 7.3 g/dL Normal 6.4-8.2 [facility] Comment on above: Performed By: #### L 501.2300, L100.0100, L500.4050, L501.9520, L501.5200 ####[facility] [address] [place], [address] Urea nitrogen [Mass/Vol] 16 mg/dL Normal 7-18 [facility] Comment on above: Performed By: #### L 501.2300, L100.0100, L500.4050, L501.9520, L501.5200 ####[facility] [address] [place], [address] Consultation - Surgicalon Consultation - Surgical Normal [facility] Ferritinon 04-12-2024 Ferritin [Mass/Vol] 17 ng/mL Low 26-388 [facility] Comment on above: Performed By: #### L 503.6030, L503.6550 ####[facility] [address] [place], [address] Iron+Iron Binding Capacityon 04-12-2024 Iron [Mass/Vol] 16 ug/dL Low 65-175 [facility] Comment on above: Performed By: #### L 503.6030, L503.6550 ####[facility] [address] [place], [address] IRON SATURATION 4.1 Low 15.0-55.0 [facility] Comment on above: Performed By: #### L 503.6030, L503.6550 ####[facility] [address] [place], [address] TIBC 387 ug/dL Normal 250-450 [facility] Comment on above: Performed By: #### L 503.6030, L503.6550 ####[facility] [address] [place], [address] MR/CON.PCM.GIon 04-12-2024 MR/CON.PCM.GI Normal [facility] Magnesiumon 04-12-2024 Magnesium [Mass/Vol] 2.1 mg/dL Normal 1.6-2.6 [facility] Comment on above: Performed By: #### L 501.2300, L100.0100, L500.4050, L501.9520, L501.5200 ####[facility] [address] [place], [address] Partial Thromboplast Timeon 04-12-2024 aPTT Coag (Bld) [Time] 27.7 s Normal 24.1-36.2 [facility] Comment on above: Performed By: #### L 300.4310, L300.3900 ####[facility] [address] [place], [address] Phosphoruson 04-12-2024 Phosphate [Mass/Vol] 3.5 mg/dL Normal 2.5-4.9 [facility] Comment on above: Performed By: #### L 501.2300, L100.0100, L500.4050, L501.9520, L501.5200 ####[facility] [address] [place], [address] Prothrombin Time w/INRon INR Coag (PPP) [Relative time] 1.0 {INR} Normal [facility] Comment on above: Performed By: #### L 300.4310, L300.3900 ####[facility] [address] [place], [address] PT Coag (PPP) [Time] 13.1 s Normal 11.7-14.9 [facility] Comment on above: Performed By: #### L 300.4310, L300.3900 ####[facility] [address] [place], [address] Thyroid Stim Hormone (TSH)on 04-12-2024 TSH 3.360 uIU/mL Normal 0.358-3.740 [facility] Comment on above: Performed By: #### L 501.2300, L100.0100, L500.4050, L501.9520, L501.5200 ####[facility] [address] [place], [address] 12 Lead EKGon 04-11-2024 12 Lead EKG Normal [facility] BNP,B-Type NATRIURETIC PEPTI Иван 04-11-2024 Natriuretic peptide B (Bld) [Mass/Vol] 371.0 pg/mL High 0-100 [facility] Comment on above: Performed By: #### L 501.4020, L500.4050, L300.8000, L503.6620, L100.0100 ####[facility] [address] [place], [address] BRCon 04-11-2024 RC Normal [facility] Comment on above: Result Comment: [id number] OP RC TRANSFUSED 04/12/24 [id number] OP RC TRANSFUSED 04/11/24 2311 Performed By: #### B RC ####[facility] [address] [place], [address] Basic Metabolic Profile (BMP )on 04-11-2024 BUN/CRE 13.8 RATIO Normal 10-20 [facility] Comment on above: Order Comment: 'TROP ' Serial specimen #1, #2 or #3: 1 Performed By: #### L 300.3900, L500.2500, L501.4020, L100.0100, L500.3400, L300.4310, BTS, L501.2450 ####[facility] [address] [place], [address] CA,Total 8.7 mg/dL Normal 8.5-10.1 [facility] Comment on above: Order Comment: 'TROP ' Serial specimen #1, #2 or #3: 1 Performed By: #### L 300.3900, L500.2500, L501.4020, L100.0100, L500.3400, L300.4310, BTS, L501.2450 ####[facility] [address] [place], [address] Chloride [Moles/Vol] 105 mmol/L Normal 98-107 [facility] Comment on above: Order Comment: 'TROP ' Serial specimen #1, #2 or #3: 1 Performed By: #### L 300.3900, L500.2500, L501.4020, L100.0100, L500.3400, L300.4310, BTS, L501.2450 ####[facility] [address] [place], [address] CO2 [Moles/Vol] 26.0 mmol/L Normal 21.0-32.0 [facility] Comment on above: Order Comment: 'TROP ' Serial specimen #1, #2 or #3: 1 Performed By: #### L 300.3900, L500.2500, L501.4020, L100.0100, L500.3400, L300.4310, BTS, L501.2450 ####[facility] [address] [place], [address] Creatinine [Mass/Vol] 1.30 mg/dL Normal 0.70-1.30 [facility] Comment on above: Order Comment: 'TROP ' Serial specimen #1, #2 or #3: 1 Result Comment: The validity of the calculated GFR GFRAA in patients over70 years has not been determined. Clinical correlation isessential. Performed By: #### L 300.3900, L500.2500, L501.4020, L100.0100, L500.3400, L300.4310, BTS, L501.2450 ####[facility] [address] [place], [address] ECRCL 45.94 ml/min Normal [facility] Comment on above: Order Comment: 'TROP ' Serial specimen #1, #2 or #3: 1 Performed By: #### L 300.3900, L500.2500, L501.4020, L100.0100, L500.3400, L300.4310, BTS, L501.2450 ####[facility] [address] [place], [address] EST GFR - AA 68 mL/min Normal >60 [facility] Comment on above: Order Comment: 'TROP ' Serial specimen #1, #2 or #3: 1 Result Comment: Afri can Egyptian GFR Calc Performed By: #### L 300.3900, L500.2500, L501.4020, L100.0100, L500.3400, L300.4310, BTS, L501.2450 ####[facility] [address] [place], [address] GAP 10 Normal 5-15 [facility] Comment on above: Order Comment: 'TROP ' Serial specimen #1, #2 or #3: 1 Performed By: #### L 300.3900, L500.2500, L501.4020, L100.0100, L500.3400, L300.4310, BTS, L501.2450 ####[facility] [address] [place], [address] GFR/1.73 sq M.predicted among non-blacks MDRD (S/P/Bld) [Vol rate/Area] 56 mL/min/{1.73_m2} Low >60 [facility] Comment on above: Order Comment: 'TROP ' Serial specimen #1, #2 or #3: 1 Result Comment: Non- GFR Calc Performed By: #### L 300.3900, L500.2500, L501.4020, L100.0100, L500.3400, L300.4310, BTS, L501.2450 ####[facility] [id number] [place], [address] Glucose [Mass/Vol] 123 mg/dL High 74-106 [facility] Comment on above: Order Comment: 'TROP ' Serial specimen #1, #2 or #3: 1 Result Comment: Fast ing Glucose result from 100 to 125 mg/dLsuggests IMPAIRED HOMEOSTASIS per A.D.A. criteria. Performed By: #### L 300.3900, L500.2500, L501.4020, L100.0100, L500.3400, L300.4310, BTS, L501.2450 ####[facility] [address] [place], [address] Potassium [Moles/Vol] 3.7 mmol/L Normal 3.5-5.1 [facility] Comment on above: Order Comment: 'TROP ' Serial specimen #1, #2 or #3: 1 Performed By: #### L 300.3900, L500.2500, L501.4020, L100.0100, L500.3400, L300.4310, BTS, L501.2450 ####[facility] [address] [place], [address] Sodium [Moles/Vol] 141 mmol/L Normal 136-145 [facility] Comment on above: Order Comment: 'TROP ' Serial specimen #1, #2 or #3: 1 Performed By: #### L 300.3900, L500.2500, L501.4020, L100.0100, L500.3400, L300.4310, BTS, L501.2450 ####[facility] [address] [place], [address] Urea nitrogen [Mass/Vol] 18 mg/dL Normal 7-18 [facility] Comment on above: Order Comment: 'TROP ' Serial specimen #1, #2 or #3: 1 Performed By: #### L 300.3900, L500.2500, L501.4020, L100.0100, L500.3400, L300.4310, BTS, L501.2450 ####[facility] [address] [place], [address] CBC W/Diff, Automatedon 04-01-2023 Absolute Lymph 1.15 X10 3/uL Normal 0.83-4.51 [facility] Comment on above: Performed By: #### L 300.3900, L500.2500, L501.4020, L100.0100, L500.3400, L300.4310, BTS, L501.2450 ####[facility] [address] [place], [address] Absolute Neut 4.0 X10 3/uL Normal 2.0-7.7 [facility] Comment on above: Performed By: #### L 300.3900, L500.2500, L501.4020, L100.0100, L500.3400, L300.4310, BTS, L501.2450 ####[facility] [address] [place], [address] Basophils/100 WBC (Bld) 0.5 % Normal 0-1 [facility] Comment on above: Performed By: #### L 300.3900, L500.2500, L501.4020, L100.0100, L500.3400, L300.4310, BTS, L501.2450 ####[facility] [address] [place], [address] Eosinophils/100 WBC (Bld) 1.3 % Normal 0-5 [facility] Comment on above: Performed By: #### L 300.3900, L500.2500, L501.4020, L100.0100, L500.3400, L300.4310, BTS, L501.2450 ####[facility] [address] [place], [address] Erythrocyte distribution width (RBC) [Ratio] 13.2 % Normal 11.6-14.6 [facility] Comment on above: Performed By: #### L 300.3900, L500.2500, L501.4020, L100.0100, L500.3400, L300.4310, BTS, L501.2450 ####[facility] [address] [place], [address] Hematocrit (Bld) [Volume fraction] 21.3 % Low 40-54 [facility] Comment on above: Performed By: #### L 300.3900, L500.2500, L501.4020, L100.0100, L500.3400, L300.4310, BTS, L501.2450 ####[facility] [address] [place], [address] Hemoglobin (Bld) [Mass/Vol] 6.7 g/dL Low 13.0-16.5 [facility] Comment on above: Performed By: #### L 300.3900, L500.2500, L501.4020, L100.0100, L500.3400, L300.4310, BTS, L501.2450 ####[facility] [address] [place], [address] IG% 0.500 Normal 0.0-0.9 [facility] Comment on above: Result Comment: IG% - Immature Granulocytes (promyelocytes, myelocytes andmetamyelocytes) > 1% indicates that a LEFT SHIFT is Present. Performed By: #### L 300.3900, L500.2500, L501.4020, L100.0100, L500.3400, L300.4310, BTS, L501.2450 ####[facility] [address] [place], [address] Lymphocytes/100 WBC (Bld) 19.0 % Normal 19-41 [facility] Comment on above: Performed By: #### L 300.3900, L500.2500, L501.4020, L100.0100, L500.3400, L300.4310, BTS, L501.2450 ####[facility] [address] [place], [address] MCH (RBC) [Entitic mass] 26.7 pg Low 27.0-32.0 [facility] Comment on above: Performed By: #### L 300.3900, L500.2500, L501.4020, L100.0100, L500.3400, L300.4310, BTS, L501.2450 ####[facility] [address] [place], [address] MCHC (RBC) [Mass/Vol] 31.5 g/dL Low 32-36 [facility] Comment on above: Performed By: #### L 300.3900, L500.2500, L501.4020, L100.0100, L500.3400, L300.4310, BTS, L501.2450 ####[facility] [address] [place], [address] MCV (RBC) [Entitic vol] 84.9 fL Normal 80-94 [facility] Comment on above: Performed By: #### L 300.3900, L500.2500, L501.4020, L100.0100, L500.3400, L300.4310, BTS, L501.2450 ####[facility] [address] [place], [address] Monocytes/100 WBC (Bld) 13.1 % High 0-10 [facility] Comment on above: Performed By: #### L 300.3900, L500.2500, L501.4020, L100.0100, L500.3400, L300.4310, BTS, L501.2450 ####[facility] [address] [place], [address] Neutrophils/100 WBC (Bld) 65.6 % Normal 47-70 [facility] Comment on above: Performed By: #### L 300.3900, L500.2500, L501.4020, L100.0100, L500.3400, L300.4310, BTS, L501.2450 ####[facility] [address] [place], [address] Nucleated RBC (Bld) [#/Vol] 0 10*3/uL Normal 0-5 [facility] Comment on above: Performed By: #### L 300.3900, L500.2500, L501.4020, L100.0100, L500.3400, L300.4310, BTS, L501.2450 ####[facility] [address] [place], [address] Platelet mean volume (Bld) [Entitic vol] 9.5 fL Normal 6.2-12.0 [facility] Comment on above: Performed By: #### L 300.3900, L500.2500, L501.4020, L100.0100, L500.3400, L300.4310, BTS, L501.2450 ####[facility] [address] [place], [address] Platelets (Bld) [#/Vol] 304 10*3/uL Normal 150-450 [facility] Comment on above: Performed By: #### L 300.3900, L500.2500, L501.4020, L100.0100, L500.3400, L300.4310, BTS, L501.2450 ####[facility] [address] [place], [address] RBC (Bld) [#/Vol] 2.51 10*6/uL Low 4.6-6.2 [facility] Comment on above: Performed By: #### L 300.3900, L500.2500, L501.4020, L100.0100, L500.3400, L300.4310, BTS, L501.2450 ####[facility] [address] [place], [address] RDW SD 40.7 fl Normal 35.1-43.9 [facility] Comment on above: Performed By: #### L 300.3900, L500.2500, L501.4020, L100.0100, L500.3400, L300.4310, BTS, L501.2450 ####[facility] [address] [place], [address] WBC (Bld) [#/Vol] 6.0 10*3/uL Normal 4.4-11.0 [facility] Comment on above: Performed By: #### L 300.3900, L500.2500, L501.4020, L100.0100, L500.3400, L300.4310, BTS, L501.2450 ####[facility] [address] [place], [address] Absolute Lymph 1.28 X10 3/uL Normal 0.83-4.51 [facility] Comment on above: Performed By: #### L 501.4020, L500.4050, L300.8000, L503.6620, L100.0100 ####[facility] [address] [place], [address] Absolute Neut 3.2 X10 3/uL Normal 2.0-7.7 [facility] Comment on above: Performed By: #### L 501.4020, L500.4050, L300.8000, L503.6620, L100.0100 ####[facility] [address] [place], [address] Basophils/100 WBC (Bld) 0.4 % Normal 0-1 [facility] Comment on above: Performed By: #### L 501.4020, L500.4050, L300.8000, L503.6620, L100.0100 ####[facility] [address] [place], [address] Eosinophils/100 WBC (Bld) 1.9 % Normal 0-5 [facility] Comment on above: Performed By: #### L 501.4020, L500.4050, L300.8000, L503.6620, L100.0100 ####[facility] [address] [place], [address] Erythrocyte distribution width (RBC) [Ratio] 13.4 % Normal 11.6-14.6 [facility] Comment on above: Performed By: #### L 501.4020, L500.4050, L300.8000, L503.6620, L100.0100 ####[facility] [address] [place], [address] Hematocrit (Bld) [Volume fraction] 23.9 % Low 40-54 [facility] Comment on above: Performed By: #### L 501.4020, L500.4050, L300.8000, L503.6620, L100.0100 ####[facility] [address] [place], [address] Hemoglobin (Bld) [Mass/Vol] 7.2 g/dL Low 13.0-16.5 [facility] Comment on above: Performed By: #### L 501.4020, L500.4050, L300.8000, L503.6620, L100.0100 ####[facility] [address] [place], [address] IG% 0.400 Normal 0.0-0.9 [facility] Comment on above: Result Comment: IG% - Immature Granulocytes (promyelocytes, myelocytes andmetamyelocytes) > 1% indicates that a LEFT SHIFT is Present. Performed By: #### L 501.4020, L500.4050, L300.8000, L503.6620, L100.0100 ####[facility] [address] [place], [address] Lymphocytes/100 WBC (Bld) 24.1 % Normal 19-41 [facility] Comment on above: Performed By: #### L 501.4020, L500.4050, L300.8000, L503.6620, L100.0100 ####[facility] [address] [place], [address] MCH (RBC) [Entitic mass] 26.2 pg Low 27.0-32.0 [facility] Comment on above: Performed By: #### L 501.4020, L500.4050, L300.8000, L503.6620, L100.0100 ####[facility] [address] [place], [address] MCHC (RBC) [Mass/Vol] 30.1 g/dL Low 32-36 [facility] Comment on above: Performed By: #### L 501.4020, L500.4050, L300.8000, L503.6620, L100.0100 ####[facility] [address] [place], [address] MCV (RBC) [Entitic vol] 86.9 fL Normal 80-94 [facility] Comment on above: Performed By: #### L 501.4020, L500.4050, L300.8000, L503.6620, L100.0100 ####[facility] [address] [place], [address] Monocytes/100 WBC (Bld) 13.6 % High 0-10 [facility] Comment on above: Performed By: #### L 501.4020, L500.4050, L300.8000, L503.6620, L100.0100 ####[facility] [address] [place], [address] Neutrophils/100 WBC (Bld) 59.6 % Normal 47-70 [facility] Comment on above: Performed By: #### L 501.4020, L500.4050, L300.8000, L503.6620, L100.0100 ####[facility] [address] [place], [address] Nucleated RBC (Bld) [#/Vol] 0 10*3/uL Normal 0-5 [facility] Comment on above: Performed By: #### L 501.4020, L500.4050, L300.8000, L503.6620, L100.0100 ####[facility] [address] [place], [address] Platelet mean volume (Bld) [Entitic vol] 9.8 fL Normal 6.2-12.0 [facility] Comment on above: Performed By: #### L 501.4020, L500.4050, L300.8000, L503.6620, L100.0100 ####[facility] [address] [place], [address] Platelets (Bld) [#/Vol] 321 10*3/uL Normal 150-450 [facility] Comment on above: Performed By: #### L 501.4020, L500.4050, L300.8000, L503.6620, L100.0100 ####[facility] [address] [place], [address] RBC (Bld) [#/Vol] 2.75 10*6/uL Low 4.6-6.2 [facility] Comment on above: Performed By: #### L 501.4020, L500.4050, L300.8000, L503.6620, L100.0100 ####[facility] [address] [place], [address] RDW SD 42.7 fl Normal 35.1-43.9 [facility] Comment on above: Performed By: #### L 501.4020, L500.4050, L300.8000, L503.6620, L100.0100 ####[facility] [address] [place], [address] WBC (Bld) [#/Vol] 5.3 10*3/uL Normal 4.4-11.0 [facility] Comment on above: Performed By: #### L 501.4020, L500.4050, L300.8000, L503.6620, L100.0100 ####[facility] [address] [place], [address] CTA Chst, Abd, Pel W and/or WOon 04-11-2024 CTA Chst, Abd, Pel W and/or WO Normal [facility] Comprehensive Metabolic Prof ilon 04-11-2024 Albumin [Mass/Vol] 3.5 g/dL Normal 3.2-5.0 [facility] Comment on above: Order Comment: 1 Performed By: #### L 501.4020, L500.4050, L300.8000, L503.6620, L100.0100 ####[facility] [address] [place], [address] Albumin/Globulin [Mass ratio] 1.0 {ratio} Normal 0.9-2.4 [facility] Comment on above: Order Comment: 1 Performed By: #### L 501.4020, L500.4050, L300.8000, L503.6620, L100.0100 ####[facility] [address] [place], [address] ALK P 89 U/L Normal 45-117 [facility] Comment on above: Order Comment: 1 Performed By: #### L 501.4020, L500.4050, L300.8000, L503.6620, L100.0100 ####[facility] [address] [place], [address] ALT [Catalytic activity/Vol] 19 U/L Normal 16-61 [facility] Comment on above: Order Comment: 1 Performed By: #### L 501.4020, L500.4050, L300.8000, L503.6620, L100.0100 ####[facility] [address] [place], [address] AST [Catalytic activity/Vol] 19 U/L Normal 15-37 [facility] Comment on above: Order Comment: 1 Performed By: #### L 501.4020, L500.4050, L300.8000, L503.6620, L100.0100 ####[facility] [address] [place], [address] Bilirubin [Mass/Vol] 0.30 mg/dL Normal 0.20-1.00 [facility] Comment on above: Order Comment: 1 Result Comment: For patients on eltrombopag therapy, use of Dimension [place] TBIL is not recommended. Performed By: #### L 501.4020, L500.4050, L300.8000, L503.6620, L100.0100 ####[facility] [address] [place], [address] BUN/CRE 13.2 RATIO Normal 10-20 [facility] Comment on above: Order Comment: 1 Performed By: #### L 501.4020, L500.4050, L300.8000, L503.6620, L100.0100 ####[facility] [address] [place], [address] CA,Total 9.2 mg/dL Normal 8.5-10.1 [facility] Comment on above: Order Comment: 1 Performed By: #### L 501.4020, L500.4050, L300.8000, L503.6620, L100.0100 ####[facility] [address] [place], [address] Chloride [Moles/Vol] 104 mmol/L Normal 98-107 [facility] Comment on above: Order Comment: 1 Performed By: #### L 501.4020, L500.4050, L300.8000, L503.6620, L100.0100 ####[facility] [address] [place], [address] CO2 [Moles/Vol] 26.0 mmol/L Normal 21.0-32.0 [facility] Comment on above: Order Comment: 1 Performed By: #### L 501.4020, L500.4050, L300.8000, L503.6620, L100.0100 ####[facility] [address] [place], [address] Creatinine [Mass/Vol] 1.14 mg/dL Normal 0.70-1.30 [facility] Comment on above: Order Comment: 1 Result Comment: The validity of the calculated GFR GFRAA in patients over70 years has not been determined. Clinical correlation isessential. Performed By: #### L 501.4020, L500.4050, L300.8000, L503.6620, L100.0100 ####[facility] [address] [place], [address] EST GFR - AA 80 mL/min Normal >60 [facility] Comment on above: Order Comment: 1 Result Comment: Afri can Egyptian GFR Calc Performed By: #### L 501.4020, L500.4050, L300.8000, L503.6620, L100.0100 ####[facility] [address] [place], [address] GAP 6 Normal 5-15 [facility] Comment on above: Order Comment: 1 Performed By: #### L 501.4020, L500.4050, L300.8000, L503.6620, L100.0100 ####[facility] [address] [place], [address] GFR/1.73 sq M.predicted among non-blacks MDRD (S/P/Bld) [Vol rate/Area] 66 mL/min/{1.73_m2} Normal >60 [facility] Comment on above: Order Comment: 1 Result Comment: Non- GFR Calc Performed By: #### L 501.4020, L500.4050, L300.8000, L503.6620, L100.0100 ####[facility] [address] [place], [address] Globulin (S) [Mass/Vol] 3.4 g/dL Normal 2.2-4.2 [facility] Comment on above: Order Comment: 1 Performed By: #### L 501.4020, L500.4050, L300.8000, L503.6620, L100.0100 ####[facility] [address] [place], [address] Glucose [Mass/Vol] 108 mg/dL High 74-106 [facility] Comment on above: Order Comment: 1 Result Comment: Fast ing Glucose result from 100 to 125 mg/dLsuggests IMPAIRED HOMEOSTASIS per A.D.A. criteria. Performed By: #### L 501.4020, L500.4050, L300.8000, L503.6620, L100.0100 ####[facility] [address] [place], [address] Potassium [Moles/Vol] 3.9 mmol/L Normal 3.5-5.1 [facility] Comment on above: Order Comment: 1 Performed By: #### L 501.4020, L500.4050, L300.8000, L503.6620, L100.0100 ####[facility] [address] [place], [address] Sodium [Moles/Vol] 136 mmol/L Normal 136-145 [facility] Comment on above: Order Comment: 1 Performed By: #### L 501.4020, L500.4050, L300.8000, L503.6620, L100.0100 ####[facility] [address] [place], [address] T PROT 6.9 g/dL Normal 6.4-8.2 [facility] Comment on above: Order Comment: 1 Performed By: #### L 501.4020, L500.4050, L300.8000, L503.6620, L100.0100 ####[facility] [address] [place], [address] Urea nitrogen [Mass/Vol] 15 mg/dL Normal 7-18 [facility] Comment on above: Order Comment: 1 Performed By: #### L 501.4020, L500.4050, L300.8000, L503.6620, L100.0100 ####[facility] [address] [place], [address] D-Dimer Quantitative (DVT/PE )on 04-11-2024 D-DIMER QUANT 2.00 FEU/ug/m Invalid Interpretation Code 0.27-0.49 [facility] Comment on above: Result Comment: D-Di gita ELEVATED (>0.49): Additional studies and clinicalassessments are indicated to conclude diagnosis of:Deep Vein Thrombosis (DVT) or Pulmonary Embolism (PE)CRITICAL VALUE CALLED TO MARIELA OLSON04/11/24 1821 Gudelia Bolanos.RESULTS READ BACK BY SAME. Performed By: #### L 501.4020, L500.4050, L300.8000, L503.6620, L100.0100 ####[facility] [address] [place], [address] Emergency Department Summary on 04-11-2024 Emergency Department Summary Normal [facility] H AND P Exam - Hospitaliston 04-11-2024 H&P Exam - Hospitalist Normal [facility] L501.4020on 04-11-2024 TROPONIN-I HS 124 pg/mL Invalid Interpretation Code 3.0-78.0 [facility] Comment on above: Order Comment: 'TROP ' Serial specimen #1, #2 or #3: 1 Result Comment: Debi vieyra Note: New Test Units and Gender Specific Reference Ranges. For more information see Policy Stat Procedure [place] High Sensitivity Troponin (TNIH) and attachments. Performed By: #### L 300.3900, L500.2500, L501.4020, L100.0100, L500.3400, L300.4310, BTS, L501.2450 ####[facility] [address] [place], [address] TROPONIN-I HS 123 pg/mL Invalid Interpretation Code 3.0-78.0 [facility] Comment on above: Order Comment: 1 Result Comment: CRIT ICAL VALUE CALLED TO MARIELA OLSON04/11/24 1822 Gudelia Bolanos.RESULTS READ BACK BY SAME. Please Note: New Test Units and Gender Specific Reference Ranges. For more information see Policy Stat Procedure [place] High Sensitivity Troponin (TNIH) and attachments. Performed By: #### L 501.4020, L500.4050, L300.8000, L503.6620, L100.0100 ####[facility] [address] [place], [address] Lipaseon 04-11-2024 Lipase [Catalytic activity/Vol] 29 U/L Normal 13-75 [facility] Comment on above: Order Comment: 'TROP ' Serial specimen #1, #2 or #3: 1 Result Comment: Debi vieyra note:LIPASE revised reference range effective 22.New Lipase methodology. Expected to produce lower valuesthan the previous assay method.NEW Reference Range: 13 - 75 U/L Performed By: #### L 300.3900, L500.2500, L501.4020, L100.0100, L500.3400, L300.4310, BTS, L501.2450 ####[facility] [address] [place], [address] Liver Profileon 04-11-2024 Albumin [Mass/Vol] 3.4 g/dL Normal 3.2-5.0 [facility] Comment on above: Order Comment: 'TROP ' Serial specimen #1, #2 or #3: 1 Performed By: #### L 300.3900, L500.2500, L501.4020, L100.0100, L500.3400, L300.4310, BTS, L501.2450 ####[facility] [address] [place], [address] ALK P 87 U/L Normal 45-117 [facility] Comment on above: Order Comment: 'TROP ' Serial specimen #1, #2 or #3: 1 Performed By: #### L 300.3900, L500.2500, L501.4020, L100.0100, L500.3400, L300.4310, BTS, L501.2450 ####[facility] [address] [place], [address] ALT [Catalytic activity/Vol] 18 U/L Normal 16-61 [facility] Comment on above: Order Comment: 'TROP ' Serial specimen #1, #2 or #3: 1 Performed By: #### L 300.3900, L500.2500, L501.4020, L100.0100, L500.3400, L300.4310, BTS, L501.2450 ####[facility] [address] [place], [address] AST [Catalytic activity/Vol] 15 U/L Normal 15-37 [facility] Comment on above: Order Comment: 'TROP ' Serial specimen #1, #2 or #3: 1 Performed By: #### L 300.3900, L500.2500, L501.4020, L100.0100, L500.3400, L300.4310, BTS, L501.2450 ####[facility] [address] [place], [address] Bilirubin [Mass/Vol] 0.30 mg/dL Normal 0.20-1.00 [facility] Comment on above: Order Comment: 'TROP ' Serial specimen #1, #2 or #3: 1 Result Comment: For patients on eltrombopag therapy, use of Dimension [place] TBIL is not recommended. Performed By: #### L 300.3900, L500.2500, L501.4020, L100.0100, L500.3400, L300.4310, BTS, L501.2450 ####[facility] [address] [place], [address] Bilirubin.direct [Mass/Vol] 0.09 mg/dL Normal 0.00-0.30 [facility] Comment on above: Order Comment: 'TROP ' Serial specimen #1, #2 or #3: 1 Performed By: #### L 300.3900, L500.2500, L501.4020, L100.0100, L500.3400, L300.4310, BTS, L501.2450 ####[facility] [address] [place], [address] Globulin (S) [Mass/Vol] 3.2 g/dL Normal 2.2-4.2 [facility] Comment on above: Order Comment: 'TROP ' Serial specimen #1, #2 or #3: 1 Performed By: #### L 300.3900, L500.2500, L501.4020, L100.0100, L500.3400, L300.4310, BTS, L501.2450 ####[facility] [address] [place], [address] T PROT 6.6 g/dL Normal 6.4-8.2 [facility] Comment on above: Order Comment: 'TROP ' Serial specimen #1, #2 or #3: 1 Performed By: #### L 300.3900, L500.2500, L501.4020, L100.0100, L500.3400, L300.4310, BTS, L501.2450 ####[facility] [address] [place], [place], [id number] Partial Thromboplast Timeon 04-11-2024 aPTT Coag (Bld) [Time] 27.9 s Normal 24.1-36.2 [facility] Comment on above: Performed By: #### L 300.3900, L500.2500, L501.4020, L100.0100, L500.3400, L300.4310, BTS, L501.2450 ####[facility] [address] [place], [place], [id number] Prothrombin Time w/INRon INR Coag (PPP) [Relative time] 1.1 {INR} Normal [facility] Comment on above: Performed By: #### L 300.3900, L500.2500, L501.4020, L100.0100, L500.3400, L300.4310, BTS, L501.2450 ####[facility] [id number] [place], [place], [id number] PT Coag (PPP) [Time] 13.8 s Normal 11.7-14.9 [facility] Comment on above: Performed By: #### L 300.3900, L500.2500, L501.4020, L100.0100, L500.3400, L300.4310, BTS, L501.2450 ####[facility] [address] [place], [place], [id number] Type AND Screenon 04-11-2024 Ab SCREEN GEL Negative Normal [facility] Comment on above: Order Comment: A Performed By: #### L 300.3900, L500.2500, L501.4020, L100.0100, L500.3400, L300.4310, BTS, L501.2450 ####[facility] [address] [place], [address] ABO and Rh group Nom (Bld) Blood group O Rh(D) positive Normal [facility] Comment on above: Order Comment: A Performed By: #### L 300.3900, L500.2500, L501.4020, L100.0100, L500.3400, L300.4310, BTS, L501.2450 ####[facility] [address] [place], [address] MR/BMS.BVSon 02-15-2024 MR/BMS.BVS Normal [facility] CREATININE FINGERSTICKon CREATININE WB < 1.0 Normal 0.70-1.30 [facility] Comment on above: Performed By: #### L 9100.0200 ####[facility] [address] [place], [address] EGFR WB > 60.0000 Normal >60 [facility] Comment on above: Performed By: #### L 9100.0200 ####[facility] [address] [place], [address] CTA Abd w/Runoff W/WO Contra ston 02-03-2024 CTA Abd w/Runoff W/WO Contrast Normal [facility] Absolute lymphocyte countOrd ered By: Stevie Vela on 12-11-2023 Lymphocytes Auto (Unsp spec) [#/Vol] 1.38 10*3/uL 0.83-4.51 [facility] Automated lymphocyte count a s percentage of total leukocytesOrdered By: Stevie Vela on 12-11-2023 Lymphocytes/100 WBC Auto (Unsp spec) 23.2 % 19-41 [facility] Basophil percentageOrdered B y: Stevie Vela on 12-11-2023 Basophils/100 WBC (Bld) 0.5 % 0-1 [facility] Chloride [Moles/Vol] 105 mmol/L 98-107 [facility] Eosinophils/100 WBC (Bld) 2.2 % 0-5 [facility] Glucose [Mass/Vol] 107 mg/dL 74-106 [facility] Comment on above: Fasting Glucose resu lt from 100 to 125 mg/dL suggests IMPAIRED HOMEOSTASIS per A.D.A. criteria. Hemoglobin (Bld) [Mass/Vol] 11.7 g/dL 13.0-16.5 [facility] Monocytes/100 WBC (Bld) 9.4 % 0-10 [facility] Neutrophils (Bld) [#/Vol] 3.8 10*3/uL 2.0-7.7 [facility] Neutrophils/100 WBC (Bld) 64.4 % 47-70 [facility] Potassium [Moles/Vol] 4.1 mmol/L 3.5-5.1 [facility] Sodium [Moles/Vol] 138 mmol/L 136-145 [facility] WBC (Bld) [#/Vol] 5.9 10*3/uL 4.4-11.0 [facility] Determination of erythrocyte mean corpuscular volume (MCV)Ordered By: Stevie Vela on 12-11-2023 MCV (RBC) [Entitic vol] 90.7 fL 80-94 [facility] Erythrocyte distribution wid th ratioOrdered By: Stevie Vela on 12-11-2023 Erythrocyte distribution width (RBC) [Ratio] 12.8 % 11.6-14.6 [facility] Erythrocyte distribution wid th standard deviationOrdered By: Stevie Vela on 12-11-2023 Erythrocyte distribution width (RBC) [Entitic vol] 41.6 fL 35.1-43.9 [facility] Hematocrit Auto (Bld) [Volum e fraction]Ordered By: Stevie Vela on 12-11-2023 Hematocrit (Bld) [Volume fraction] 35.1 % 40-54 [facility] Immature granulocytes/100 WB C Auto (Bld)Ordered By: Stevie Vela on 12-11-2023 Immature granulocytes/100 WBC (Bld) 0.300 % 0.0-0.9 [facility] Comment on above: IG% - Immature Granu locytes (promyelocytes, myelocytes and metamyelocytes) > 1% indicates that a LEFT SHIFT is Present. Laboratory - Chemistry and C hemistry - challengeOrdered By: Stevie Vela on 12-11-2023 CO2 [Moles/Vol] 27.0 mmol/L 21.0-32.0 [facility] Urea nitrogen/Creatinine [Mass ratio] 20.3 mg/mg 10-20 [facility] Laboratory - Hematology and Cell countsOrdered By: Stevie Vela on 12-11-2023 MCH (RBC) [Entitic mass] 30.2 pg 27.0-32.0 [facility] MCHC (RBC) [Mass/Vol] 33.3 g/dL 32-36 [facility] Nucleated RBC/100 WBC (Bld) [Ratio] 0 % 0-5 [facility] Platelet mean volume (Bld) [Entitic vol] 9.8 fL 6.2-12.0 [facility] Platelets (Bld) [#/Vol] 233 10*3/uL 150-450 [facility] No Panel InformationOrdered By: Stevie Vela on 12-11-2023 Estimated Creatinine Clearance Calc 54.39 ml/min [facility] Estimated GFR (MDRD) Amer 76 mL/min >60 [facility] Comment on above: GFR Calc Estimated GFR (MDRD) Non-Af Amer 63 mL/min >60 [facility] Comment on above: Non- GFR Calc Troponin I High Sensitivity 77 pg/mL 3.0-78.0 [facility] Comment on above: Please Note: New Wendy t Units and Gender Specific Reference Ranges. For more information see Policy Stat Procedure [place] High Sensitivity Troponin (TNIH) and attachments. RBC Auto (Bld) [#/Vol]Ordere d By: Stevie Vela on 12-11-2023 RBC (Bld) [#/Vol] 3.87 10*6/uL 4.6-6.2 [facility] Serum or plasma calcium shagufta urement (mass/volume)Ordered By: Stevie Vela on 12-11-2023 Calcium [Mass/Vol] 8.8 mg/dL 8.5-10.1 [facility] Serum or plasma creatinine m easurement (mass/volume)Ordered By: Stevie Vela on 12-11-2023 Creatinine [Mass/Vol] 1.18 mg/dL 0.70-1.30 [facility] Comment on above: The validity of the calculated GFR & GFRAA in patients over 70 years has not been determined. Clinical correlation is essential. Serum or plasma urea nitroge n measurement (mass/volume)Ordered By: Stevie Vela on 12-11-2023 Urea nitrogen [Mass/Vol] 24 mg/dL 7-18 [facility] Thin prep Papanicolaou smear with manual screeningOrdered By: Stevie Vela on 12-11-2023 Thin prep Papanicolaou smear with manual screening 6 5-15 [facility] Basophil percentageOrdered B y: Neville Islas on 08-22-2023 Testosterone [Mass/Vol] 374 ng/dL 264-916 [facility] Comment on above: Adult male reference interval is based on a population ofhealthy nonobese males (BMI <30) between 19 and 39 yearsold. Julian et.al. JCEM 2017,102;5590-5126. PMID:[id number]. Free testosterone percentage Ordered By: Neville Islas on 08-22-2023 Testosterone Free/Testosterone.tota l [Mass fraction] 1.85 % 1.50-4.20 [facility] Laboratory - Chemistry and C hemistry - challengeOrdered By: Neville Islas on 08-22-2023 Prolactin IA Qn 11.4 ng/mL [facility] Comment on above: NORMAL REFERENCE RAN GES FEMALE NON- 2.2 - 30.3 ng/mL 8.1 - 347.6 ng/mL POST-MENOPAUSAL 0.7 - 31.5 ng/mL MALE 2.5 - 17.4 ng/mL Transferrin [Mass/Vol] 250 mg/dL 177-329 [facility] Comment on above: Performed at: [address] [id number] Director: Jian Paredes PhD, Phone: [phone] at: - [facility] [address] [id number] Director: Tejal Dumas MD, Phone: [phone] Serum or plasma testosterone free measurement (mass/volume)Ordered By: Neville Islas on 08-22-2023 Testosterone Free [Mass/Vol] 6.92 ng/dL 5.00-21.00 [facility] Serum or plasma thyroid stim ulating hormone (TSH) measurement (units/volume)Ordered By: Neville Islas on 08-22-2023 TSH Qn 4.59 uIU/mL 0.358-3.74 [facility] Absolute lymphocyte countOrd ered By: Darrel Sanders on 08-16-2023 Lymphocytes Auto (Unsp spec) [#/Vol] 2.04 10*3/uL 0.83-4.51 [facility] Basophil percentageOrdered B y: Darrel Sanders on 08-16-2023 Basophil percentage 3.1 mg/dL 2.5-4.9 [facility] Basophils/100 WBC (Bld) 0.3 % 0-1 [facility] Bilirubin [Mass/Vol] 0.80 mg/dL 0.20-1.00 [facility] Comment on above: For patients on eltr ombopag therapy, use of Dimension [place] TBIL is not recommended. Chloride [Moles/Vol] 105 mmol/L 98-107 [facility] Cholesterol [Mass/Vol] 203 mg/dL <200 [facility] Comment on above: <200 mg/dL Desirable 200-240 mg/dL Borderline >240 mg/dL High Risk Eosinophils/100 WBC (Bld) 1.9 % 0-5 [facility] Glucose [Mass/Vol] 91 mg/dL 74-106 [facility] Neutrophils (Bld) [#/Vol] 3.5 10*3/uL 2.0-7.7 [facility] Neutrophils/100 WBC (Bld) 56.6 % 47-70 [facility] Potassium [Moles/Vol] 3.7 mmol/L 3.5-5.1 [facility] Protein [Mass/Vol] 7.3 g/dL 6.4-8.2 [facility] Sodium [Moles/Vol] 137 mmol/L 136-145 [facility] Triglyceride [Mass/Vol] 105 mg/dL <199 [facility] Comment on above: The drugs N-Acetylcy steine and Metamizole may falsely depress this assay.Serum Triglycerides Reference Interval Normal <150 mg/dL Borderline high 150 - 199 mg/dL High 200 - 499 mg/dL Very High > or = 500 mg/dL WBC (Bld) [#/Vol] 6.2 10*3/uL 4.4-11.0 [facility] Blood erythrocytes count (nu mber/volume)Ordered By: Darrel Sanders on 08-16-2023 RBC (Bld) [#/Vol] 4.25 10*6/uL 4.6-6.2 [facility] Blood hemoglobin measurement (mass/volume)Ordered By: Darrel Sanders on 08-16-2023 Hemoglobin (Bld) [Mass/Vol] 12.7 g/dL 13.0-16.5 [facility] Blood lymphocytes/100 leukoc ytesOrdered By: Darrel Sanders on 08-16-2023 Lymphocytes/100 WBC (Bld) 32.7 % 19-41 [facility] Blood monocytes/100 leukocyt esOrdered By: Darrel Sanders on 08-16-2023 Monocytes/100 WBC (Bld) 8.3 % 0-10 [facility] Blood platelet mean volumeOr dered By: Darrel Sanders on 08-16-2023 Platelet mean volume (Bld) [Entitic vol] 9.9 fL 6.2-12.0 [facility] Determination of erythrocyte mean corpuscular volume (MCV)Ordered By: Darrel Sanders on 08-16-2023 MCV (RBC) [Entitic vol] 89.2 fL 80-94 [facility] Hematocrit Auto (Bld) [Volum e fraction]Ordered By: Darrel Sanders on 08-16-2023 Hematocrit (Bld) [Volume fraction] 37.9 % 40-54 [facility] Laboratory - Chemistry and C hemistry - challengeOrdered By: Darrel Sanders on 08-16-2023 ALP [Catalytic activity/Vol] 87 U/L 45-117 [facility] ALT [Catalytic activity/Vol] 28 U/L 16-61 [facility] CO2 [Moles/Vol] 26.0 mmol/L 21.0-32.0 [facility] Globulin (S) [Mass/Vol] 3.5 g/dL 2.2-4.2 [facility] Magnesium [Mass/Vol] 2.2 mg/dL 1.6-2.6 [facility] Urea nitrogen/Creatinine [Mass ratio] 18.6 mg/mg 10-20 [facility] Laboratory - Hematology and Cell countsOrdered By: Darrel Sanders on 08-16-2023 Erythrocyte distribution width (RBC) [Entitic vol] 43.4 fL 35.1-43.9 [facility] Erythrocyte distribution width (RBC) [Ratio] 13.3 % 11.6-14.6 [facility] Immature granulocytes/100 WBC (Bld) 0.200 % 0.0-0.9 [facility] Comment on above: IG% - Immature Granu locytes (promyelocytes, myelocytes and metamyelocytes) > 1% indicates that a LEFT SHIFT is Present. MCH (RBC) [Entitic mass] 29.9 pg 27.0-32.0 [facility] Nucleated RBC/100 WBC (Bld) [Ratio] 0 % 0-5 [facility] MCHC Auto (RBC) [Mass/Vol]Or dered By: Darrel Sanders on 08-16-2023 MCHC (RBC) [Mass/Vol] 33.5 g/dL 32-36 [facility] No Panel InformationOrdered By: Darrel Sanders on 08-16-2023 Estimated Creatinine Clearance Calc 58.72 ml/min [facility] Estimated GFR (MDRD) Amer 91 mL/min >60 [facility] Comment on above: GFR Calc Estimated GFR (MDRD) Non-Af Amer 75 mL/min >60 [facility] Comment on above: Non- GFR Calc D-Dimer Quantitative (PE/DVT) 0.79 FEU/ug/m 0.27-0.49 [facility] Comment on above: D-Dimer ELEVATED (>0 .49): Additional studies and clinicalassessments are indicated to conclude diagnosis of:Deep Vein Thrombosis (DVT) or Pulmonary Embolism (PE)CRITICAL VALUE VERIFIED. CALLED TO [id number]/24 0113 Quintin Cardenas.RESULTS READ BACK BY SAME. Troponin I High Sensitivity 96 pg/mL 3.0-78.0 [facility] Comment on above: Please Note: New Wendy t Units and Gender Specific Reference Ranges. For more information see Policy Stat Procedure [place] High Sensitivity Troponin (TNIH) and attachments. Platelets bldOrdered By: Esdras Sanders on 08-16-2023 Platelets (Bld) [#/Vol] 250 10*3/uL 150-450 [facility] Serum or plasma albumin shagufta urement (mass/volume)Ordered By: Darrel Sanders on 08-16-2023 Albumin [Mass/Vol] 3.8 g/dL 3.2-5.0 [facility] Serum or plasma albumin/glob ulin mass ratioOrdered By: Darrel Sanders on 08-16-2023 Albumin/Globulin [Mass ratio] 1.1 {ratio} 0.9-2.4 [facility] Serum or plasma calcium shagufta urement (mass/volume)Ordered By: Darrel Sanders on 08-16-2023 Calcium [Mass/Vol] 9.4 mg/dL 8.5-10.1 [facility] Serum or plasma cholesterol in HDL measurement (mass/volume)Ordered By: Darrel Sanders on 08-16-2023 Cholesterol in HDL [Mass/Vol] 59 mg/dL >40 [facility] Comment on above: The drugs N-Acetylcy steine and Metamizole may falsely depress this assay. Reference Range HDL <40 mg/dL Low HDL Cholesterol HDL >or= 60 mg/dL High HDL Cholesterol Serum or plasma cholesterol in VLDL measurement (mass/volume)Ordered By: Darrel Sanders on 08-16-2023 Cholesterol in VLDL [Mass/Vol] 21 mg/dL 5-40 [facility] Serum or plasma creatinine m easurement (mass/volume)Ordered By: Darrel Sanders on 08-16-2023 Creatinine [Mass/Vol] 1.02 mg/dL 0.70-1.30 [facility] Comment on above: The validity of the calculated GFR & GFRAA in patients over 70 years has not been determined. Clinical correlation is essential. Serum or plasma low density lipoprotein (LDL) cholesterol measurement (mass/volume)Ordered By: Darrel Sanders on 08-16-2023 Cholesterol in LDL [Mass/Vol] 123 mg/dL 0-130 [facility] Serum or plasma thyroid stim ulating hormone (TSH) measurement (units/volume)Ordered By: Lucy Polanco on 08-16-2023 TSH Qn 4.27 uIU/mL 0.358-3.74 [facility] Serum or plasma urea nitroge n measurement (mass/volume)Ordered By: Darrel Sanders on 08-16-2023 Urea nitrogen [Mass/Vol] 19 mg/dL 7-18 [facility] Thin prep Papanicolaou smear with manual screeningOrdered By: Darrel Sanders on 08-16-2023 Thin prep Papanicolaou smear with manual screening 25 U/L 15-37 [facility] Thin prep Papanicolaou smear with manual screening 6 5-15 [facility] Thin prep Papanicolaou smear with manual screeningOrdered By: Lucy Polanco on 08-16-2023 Thin prep Papanicolaou smear with manual screening 0.97 ng/dL 0.76-1.46 [facility] Absolute lymphocyte countOrd ered By: Faustina Garrison on 08-15-2023 Lymphocytes Auto (Unsp spec) [#/Vol] 1.56 10*3/uL 0.83-4.51 [facility] Basophil percentageOrdered B y: Faustina Garrison on 08-15-2023 Basophil percentage 0 SEEN /hpf 0-5 [facility] Basophils/100 WBC (Bld) 0.5 % 0-1 [facility] Bilirubin [Mass/Vol] 0.60 mg/dL 0.20-1.00 [facility] Comment on above: For patients on eltr ombopag therapy, use of Dimension [place] TBIL is not recommended. Chloride [Moles/Vol] 100 mmol/L 98-107 [facility] Eosinophils/100 WBC (Bld) 2.9 % 0-5 [facility] Glucose [Mass/Vol] 99 mg/dL 74-106 [facility] Neutrophils (Bld) [#/Vol] 3.9 10*3/uL 2.0-7.7 [facility] Neutrophils/100 WBC (Bld) 62.4 % 47-70 [facility] Potassium [Moles/Vol] 4.7 mmol/L 3.5-5.1 [facility] Comment on above: Slight Hemolysis, Re sult may be falsely increased. Protein [Mass/Vol] 7.6 g/dL 6.4-8.2 [facility] Sodium [Moles/Vol] 136 mmol/L 136-145 [facility] WBC (Bld) [#/Vol] 6.2 10*3/uL 4.4-11.0 [facility] Bilirubin Test strip Ql (U)O rdered By: Faustina Garrison on 08-15-2023 Bilirubin Ql (U) Negative Negative [facility] Blood erythrocytes count (nu mber/volume)Ordered By: Faustina Garrison on 08-15-2023 RBC (Bld) [#/Vol] 4.26 10*6/uL 4.6-6.2 [facility] Blood hemoglobin measurement (mass/volume)Ordered By: Faustina Garrison on 08-15-2023 Hemoglobin (Bld) [Mass/Vol] 13.2 g/dL 13.0-16.5 [facility] Blood lymphocytes/100 leukoc ytesOrdered By: Faustina Garrison on 08-15-2023 Lymphocytes/100 WBC (Bld) 25.1 % 19-41 [facility] Blood monocytes/100 leukocyt esOrdered By: Faustina Garrison on 08-15-2023 Monocytes/100 WBC (Bld) 8.8 % 0-10 [facility] Blood platelet mean volumeOr dered By: Faustina Garrison on 08-15-2023 Platelet mean volume (Bld) [Entitic vol] 9.9 fL 6.2-12.0 [facility] Determination of erythrocyte mean corpuscular volume (MCV)Ordered By: Faustina Garrison on 08-15-2023 MCV (RBC) [Entitic vol] 90.6 fL 80-94 [facility] Hematocrit Auto (Bld) [Volum e fraction]Ordered By: Faustina Garrison on 08-15-2023 Hematocrit (Bld) [Volume fraction] 38.6 % 40-54 [facility] Ketones Test strip Ql (U)Ord ered By: Faustina Garrison on 08-15-2023 Ketones Ql (U) Negative Negative [facility] Laboratory - Chemistry and C hemistry - challengeOrdered By: Faustina Garrison on 08-15-2023 ALP [Catalytic activity/Vol] 97 U/L 45-117 [facility] ALT [Catalytic activity/Vol] 31 U/L 16-61 [facility] CO2 [Moles/Vol] 28.0 mmol/L 21.0-32.0 [facility] Globulin (S) [Mass/Vol] 3.7 g/dL 2.2-4.2 [facility] Magnesium [Mass/Vol] 2.0 mg/dL 1.6-2.6 [facility] Comment on above: Slight Hemolysis, Re sult may be falsely increased. Urea nitrogen/Creatinine [Mass ratio] 18.0 mg/mg 10-20 [facility] Laboratory - Hematology and Cell countsOrdered By: Faustina Garrison on 08-15-2023 Erythrocyte distribution width (RBC) [Entitic vol] 43.6 fL 35.1-43.9 [facility] Erythrocyte distribution width (RBC) [Ratio] 13.2 % 11.6-14.6 [facility] Immature granulocytes/100 WBC (Bld) 0.300 % 0.0-0.9 [facility] Comment on above: IG% - Immature Granu locytes (promyelocytes, myelocytes and metamyelocytes) > 1% indicates that a LEFT SHIFT is Present. MCH (RBC) [Entitic mass] 31.0 pg 27.0-32.0 [facility] Nucleated RBC/100 WBC (Bld) [Ratio] 0 % 0-5 [facility] MCHC Auto (RBC) [Mass/Vol]Or dered By: Faustina Garrison on 08-15-2023 MCHC (RBC) [Mass/Vol] 34.2 g/dL 32-36 [facility] Mucus LM Ql (Urine sed)Order ed By: Faustina Garrison on 08-15-2023 Mucus Ql (Urine sed) 0 SEEN /hpf [facility] Nitrite Test strip Ql (U)Ord ered By: Faustina Garrison on 08-15-2023 Nitrite Ql (U) Negative Negative [facility] No Panel InformationOrdered By: Faustina Garrison on 08-15-2023 Troponin I High Sensitivity 85 pg/mL 3.0-78.0 [facility] Comment on above: Please Note: New Wendy t Units and Gender Specific Reference Ranges. For more information see Policy Stat Procedure [place] High Sensitivity Troponin (TNIH) and attachments. Estimated Creatinine Clearance Calc 52.21 ml/min [facility] Estimated GFR (MDRD) Amer 82 mL/min >60 [facility] Comment on above: GFR Calc Estimated GFR (MDRD) Non-Af Amer 68 mL/min >60 [facility] Comment on above: Non- GFR Calc Platelets bldOrdered By: Natali Garrison on 08-15-2023 Platelets (Bld) [#/Vol] 242 10*3/uL 150-450 [facility] Protein Test strip Ql (U)Ord ered By: Faustina Garrison on 08-15-2023 Protein Ql (U) Negative Negative [facility] Serum or plasma albumin shagufta urement (mass/volume)Ordered By: Faustina Garrison on 08-15-2023 Albumin [Mass/Vol] 3.9 g/dL 3.2-5.0 [facility] Serum or plasma albumin/glob ulin mass ratioOrdered By: Faustina Garrison on 08-15-2023 Albumin/Globulin [Mass ratio] 1.1 {ratio} 0.9-2.4 [facility] Serum or plasma calcium shagufta urement (mass/volume)Ordered By: Faustina Garrison on 08-15-2023 Calcium [Mass/Vol] 9.3 mg/dL 8.5-10.1 [facility] Serum or plasma creatinine m easurement (mass/volume)Ordered By: Faustina Garrison on 08-15-2023 Creatinine [Mass/Vol] 1.11 mg/dL 0.70-1.30 [facility] Comment on above: The validity of the calculated GFR & GFRAA in patients over 70 years has not been determined. Clinical correlation is essential. Serum or plasma urea nitroge n measurement (mass/volume)Ordered By: Faustina Garrison on 08-15-2023 Urea nitrogen [Mass/Vol] 20 mg/dL 7-18 [facility] Squamous epithelial cells de tection in urine sediment by light microscopyOrdered By: Faustina Garrison on 08-15-2023 Epithelial cells.squamous LM Ql (Urine sed) 0-5 SEEN /hpf 0-5 [facility] Thin prep Papanicolaou smear with manual screeningOrdered By: Faustina Garrison on 08-15-2023 Thin prep Papanicolaou smear with manual screening 29 U/L 15-37 [facility] Comment on above: Slight Hemolysis, Re sult may be falsely increased. Thin prep Papanicolaou smear with manual screening 8 5-15 [facility] Urine blood detectionOrdered By: Faustina Garrison on 08-15-2023 RBC Ql (U) Negative Negative [facility] RBC Ql (U) 0 SEEN /hpf 0-5 [facility] Urine clarityOrdered By: Natali Garrison on 08-15-2023 Clarity (U) Sl. Cloudy Clear [facility] Urine color determinationOrd ered By: Faustina Garrison on 08-15-2023 Color (U) Yellow Yellow [facility] Urine glucose detectionOrder ed By: Faustina Garrison on 08-15-2023 Glucose Ql (U) Normal mg/dl Normal [facility] Urine leukocyte esterase det ection by dipstickOrdered By: Faustina Garrison on 08-15-2023 Leukocyte esterase Test strip Ql (U) Negative Negative [facility] Urine pHOrdered By: Faustina bartlett on 08-15-2023 pH (U) 8.0 [pH] 5.0 - 8.0 [facility] Urine sediment bacteria coun t by microscopy (number/high power field)Ordered By: Faustina Garrison on 08-15-2023 Bacteria LM.HPF (Urine sed) [#/Area] 0 /[HPF] None Seen [facility] Urine specific gravity measu rementOrdered By: Faustina Garrison on 08-15-2023 Specific gravity (U) [Rel density] 1.010 1.002-1.030 [facility] Urobilinogen Auto test strip Ql (U)Ordered By: Faustina Garrison on 08-15-2023 Urobilinogen Ql (U) Normal mg/dl Normal [facility] Absolute lymphocyte countOrd ered By: Mariela Olson on 01-25-2023 Lymphocytes Auto (Unsp spec) [#/Vol] 2.09 10*3/uL 0.83-4.51 [facility] Basophil percentageOrdered B y: Mariela Olson on 01-25-2023 Basophils/100 WBC (Bld) 0.6 % 0-1 [facility] Chloride [Moles/Vol] 106 mmol/L 98-107 [facility] Eosinophils/100 WBC (Bld) 6.0 % 0-5 [facility] Glucose [Mass/Vol] 98 mg/dL 74-106 [facility] Neutrophils (Bld) [#/Vol] 3.6 10*3/uL 2.0-7.7 [facility] Neutrophils/100 WBC (Bld) 52.4 % 47-70 [facility] Potassium [Moles/Vol] 4.2 mmol/L 3.5-5.1 [facility] Sodium [Moles/Vol] 138 mmol/L 136-145 [facility] WBC (Bld) [#/Vol] 6.9 10*3/uL 4.4-11.0 [facility] Blood erythrocytes count (nu mber/volume)Ordered By: Mariela Olson on 01-25-2023 RBC (Bld) [#/Vol] 4.64 10*6/uL 4.6-6.2 [facility] Blood hemoglobin measurement (mass/volume)Ordered By: Mariela Olson on 01-25-2023 Hemoglobin (Bld) [Mass/Vol] 14.2 g/dL 13.0-16.5 [facility] Blood lymphocytes/100 leukoc ytesOrdered By: Mariela Olson on 01-25-2023 Lymphocytes/100 WBC (Bld) 30.4 % 19-41 [facility] Blood monocytes/100 leukocyt esOrdered By: Mariela Olson on 01-25-2023 Monocytes/100 WBC (Bld) 10.3 % 0-10 [facility] Blood platelet mean volumeOr dered By: Mariela Olson on 01-25-2023 Platelet mean volume (Bld) [Entitic vol] 10.0 fL 6.2-12.0 [facility] Determination of erythrocyte mean corpuscular volume (MCV)Ordered By: Mariela Olson on 01-25-2023 MCV (RBC) [Entitic vol] 92.7 fL 80-94 [facility] Hematocrit Auto (Bld) [Volum e fraction]Ordered By: Mariela lOson on 01-25-2023 Hematocrit (Bld) [Volume fraction] 43.0 % 40-54 [facility] Laboratory - Chemistry and C hemistry - challengeOrdered By: Mariela Olson on 01-25-2023 CO2 [Moles/Vol] 28.0 mmol/L 21.0-32.0 [facility] Magnesium [Mass/Vol] 2.3 mg/dL 1.6-2.6 [facility] Urea nitrogen/Creatinine [Mass ratio] 17.7 mg/mg 10-20 [facility] Laboratory - Hematology and Cell countsOrdered By: Mariela Olson on 01-25-2023 Erythrocyte distribution width (RBC) [Entitic vol] 43.2 fL 35.1-43.9 [facility] Erythrocyte distribution width (RBC) [Ratio] 12.7 % 11.6-14.6 [facility] Immature granulocytes/100 WBC (Bld) 0.300 % 0.0-0.9 [facility] Comment on above: IG% - Immature Granu locytes (promyelocytes, myelocytes and metamyelocytes) > 1% indicates that a LEFT SHIFT is Present. MCH (RBC) [Entitic mass] 30.6 pg 27.0-32.0 [facility] Nucleated RBC/100 WBC (Bld) [Ratio] 0 % 0-5 [facility] MCHC Auto (RBC) [Mass/Vol]Or dered By: Mariela Olson on 01-25-2023 MCHC (RBC) [Mass/Vol] 33.0 g/dL 32-36 [facility] No Panel InformationOrdered By: Mariela Olson on 01-25-2023 Estimated GFR (MDRD) Amer 72 mL/min >60 [facility] Comment on above: GFR Calc Estimated GFR (MDRD) Non-Af Amer 60 mL/min >60 [facility] Comment on above: Non- GFR Calc Platelets bldOrdered By: Hortencia Olson on 01-25-2023 Platelets (Bld) [#/Vol] 242 10*3/uL 150-450 [facility] Serum or plasma calcium shagufta urement (mass/volume)Ordered By: Mariela Olson on 01-25-2023 Calcium [Mass/Vol] 9.3 mg/dL 8.5-10.1 [facility] Serum or plasma creatinine m easurement (mass/volume)Ordered By: Mariela Olson on 01-25-2023 Creatinine [Mass/Vol] 1.24 mg/dL 0.70-1.30 [facility] Comment on above: The validity of the calculated GFR & GFRAA in patients over 70 years has not been determined. Clinical correlation is essential. Serum or plasma urea nitroge n measurement (mass/volume)Ordered By: Mariela Olson on 01-25-2023 Urea nitrogen [Mass/Vol] 22 mg/dL 7-18 [facility] Thin prep Papanicolaou smear with manual screeningOrdered By: Mariela Olson on 01-25-2023 Thin prep Papanicolaou smear with manual screening 4 5-15 [facility] Vital Signs Date Time Vital Sign Value Performing Clinician Facility 02-11-2025 02:55-0400 Diastolic blood pressure 71 mm[Hg] Marielabruce Olson [employer] Work Phone: [facility] 02-11-2025 02:55-0400 Heart rate 73 /min Marielabruce Olson [employer] Work Phone: [facility] 02-11-2025 02:55-0400 Respiratory rate 14 /min Mariela Shahram [employer] Work Phone: [facility] 02-11-2025 02:55-0400 SaO2% (BldA) [Mass fraction] 98 % Mariela Olson [employer] Work Phone: [facility] 02-11-2025 02:55-0400 Systolic blood pressure 178 mm[Hg] Marielabruce Olson [employer] Work Phone: [facility] 02-11-2025 02:27-0400 Body temperature 98 [degF] Marielabruce Olson [employer] Work Phone: [facility] 02-10-2025 21:34-0400 Body height 170.18 cm Mariela Shahram [employer] Work Phone: [facility] 02-10-2025 21:34-0400 Body mass index (BMI) [Ratio] 24.9 kg/m2 Marielabruce Olson [employer] Work Phone: [facility] 02-10-2025 21:34-0400 Body weight 72.12 kg Mariela Shahram [employer] Work Phone: [facility] 01-14-2025 09:01-0400 Body height 170.18 cm Mariela Shahram [employer] Work Phone: [facility] 01-14-2025 09:01-0400 Body mass index (BMI) [Ratio] 23.5 kg/m2 Mariela Shahram [employer] Work Phone: [facility] 01-14-2025 09:01-0400 Body weight 68.03 kg Mariela Shahram [employer] Work Phone: [facility] 01-09-2025 15:28-0400 Body height 170.18 cm Marilea Shahram [employer] Work Phone: [facility] 01-09-2025 15:28-0400 Body mass index (BMI) [Ratio] 24.1 kg/m2 Mariela Shahram [employer] Work Phone: [facility] 01-09-2025 15:28-0400 Body temperature 98.4 [degF] Mariela Shahram [employer] Work Phone: [facility] 01-09-2025 15:28-0400 Body weight 69.9 kg Mariela Shahram [employer] Work Phone: [facility] 01-09-2025 15:28-0400 Diastolic blood pressure 74 mm[Hg] Mariela Shahram [employer] Work Phone: [facility] 01-09-2025 15:28-0400 Heart rate 62 /min Mariela Shahram [employer] Work Phone: [facility] 01-09-2025 15:28-0400 SaO2% (BldA) [Mass fraction] 97 % Mariela Shahram [employer] Work Phone: [facility] 01-09-2025 15:28-0400 Systolic blood pressure 146 mm[Hg] Mariela Shahram [employer] Work Phone: [facility] 12-05-2024 14:06-0400 Diastolic blood pressure 87 mm[Hg] Mariela Shahram [employer] Work Phone: [facility] 12-05-2024 14:06-0400 Heart rate 62 /min Mariela Shahram [employer] Work Phone: [facility] 12-05-2024 14:06-0400 Respiratory rate 14 /min Mariela Shahram [employer] Work Phone: [facility] 12-05-2024 14:06-0400 SaO2% (BldA) [Mass fraction] 96 % Mariela Shahram [employer] Work Phone: [facility] 12-05-2024 14:06-0400 Systolic blood pressure 120 mm[Hg] Mariela Shahram [employer] Work Phone: [facility] 12-05-2024 08:22-0400 Body height 171.45 cm Mariela Shahram [employer] Work Phone: [facility] 12-05-2024 08:22-0400 Body mass index (BMI) [Ratio] 23.4 kg/m2 Mariela Shahram [employer] Work Phone: [facility] 12-05-2024 08:22-0400 Body temperature 98 [degF] Mariela Shahram [employer] Work Phone: [facility] 12-05-2024 08:22-0400 Body weight 68.94 kg Mariela Shahram [employer] Work Phone: [facility] 12-05-2024 08:22-0400 Diastolic blood pressure 82 mm[Hg] Mariela Shahram [employer] Work Phone: [facility] 12-05-2024 08:22-0400 Heart rate 62 /min Mariela Shahram [employer] Work Phone: [facility] 12-05-2024 08:22-0400 Respiratory rate 13 /min Mariela Shahram [employer] Work Phone: [facility] 12-05-2024 08:22-0400 SaO2% (BldA) [Mass fraction] 100 % Mariela Shahram [employer] Work Phone: [facility] 12-05-2024 08:22-0400 Systolic blood pressure 185 mm[Hg] Mariela Shharam [employer] Work Phone: [facility] 11-28-2024 11:09-0400 Body mass index (BMI) [Ratio] 24 kg/m2 Mariela Shahram [employer] Work Phone: [facility] 11-28-2024 11:09-0400 Body temperature 98.5 [degF] Mariela Shahram [employer] Work Phone: [facility] 11-28-2024 11:09-0400 Body weight 70.76 kg Mariela Shahram [employer] Work Phone: [facility] 11-28-2024 11:09-0400 Diastolic blood pressure 76 mm[Hg] Mariela Shahram [employer] Work Phone: [facility] 11-28-2024 11:09-0400 Heart rate 74 /min Mariela Shahram [employer] Work Phone: [facility] 11-28-2024 11:09-0400 Respiratory rate 16 /min Mariela Shahram [employer] Work Phone: [facility] 11-28-2024 11:09-0400 SaO2% (BldA) [Mass fraction] 100 % Mariela Shahram [employer] Work Phone: [facility] 11-28-2024 11:09-0400 Systolic blood pressure 152 mm[Hg] Mariela Shahram [employer] Work Phone: [facility] 11-20-2024 13:22-0400 Body temperature 98 [degF] Mariela Shahram [employer] Work Phone: [facility] 11-20-2024 13:22-0400 Diastolic blood pressure 81 mm[Hg] Mariela Shahram [employer] Work Phone: [facility] 11-20-2024 13:22-0400 Heart rate 86 /min Mariela Shahram [employer] Work Phone: [facility] 11-20-2024 13:22-0400 Respiratory rate 18 /min Mariela Shahram [employer] Work Phone: [facility] 11-20-2024 13:22-0400 SaO2% (BldA) [Mass fraction] 95 % Mariela Shahram [employer] Work Phone: [facility] 11-20-2024 13:22-0400 Systolic blood pressure 139 mm[Hg] Mariela Shahram [employer] Work Phone: [facility] 11-19-2024 12:37-0400 Body height 171.45 cm Mariela Shahram [employer] Work Phone: [facility] 11-19-2024 12:37-0400 Body weight 68.94 kg Mariela Shahram [employer] Work Phone: [facility] 11-19-2024 08:57-0400 Body mass index (BMI) [Ratio] 23.4 kg/m2 Mariela Shahram [employer] Work Phone: [facility] 11-18-2024 15:02-0400 Heart rate 67 /min Mariela Shahram [employer] Work Phone: [facility] 11-18-2024 15:02-0400 Respiratory rate 17 /min Mariela Shahram [employer] Work Phone: [facility] 11-18-2024 15:02-0400 SaO2% (BldA) [Mass fraction] 100 % Mariela Shahram [employer] Work Phone: [facility] 11-18-2024 13:14-0400 Diastolic blood pressure 86 mm[Hg] Mariela Shahram [employer] Work Phone: [facility] 11-18-2024 13:14-0400 Systolic blood pressure 186 mm[Hg] Mariela Shahram [employer] Work Phone: [facility] 11-18-2024 09:56-0400 Body height 170.18 cm Mariela Shahram [employer] Work Phone: [facility] 11-18-2024 09:56-0400 Body mass index (BMI) [Ratio] 23.9 kg/m2 Mariela Shahram [employer] Work Phone: [facility] 11-18-2024 09:56-0400 Body temperature 97.8 [degF] Mariela Shahram [employer] Work Phone: [facility] 11-18-2024 09:56-0400 Body weight 69.39 kg Mariela Shahram [employer] Work Phone: [facility] 11-07-2024 15:00-0400 Body temperature 98.1 [degF] Mariela Shahram [employer] Work Phone: [facility] 11-07-2024 15:00-0400 Diastolic blood pressure 69 mm[Hg] Mariela Shahram [employer] Work Phone: [facility] 11-07-2024 15:00-0400 Heart rate 79 /min Mariela Shahram [employer] Work Phone: [facility] 11-07-2024 15:00-0400 SaO2% (BldA) [Mass fraction] 99 % Mariela Shahram [employer] Work Phone: [facility] 11-07-2024 15:00-0400 Systolic blood pressure 149 mm[Hg] Mariela Shahram [employer] Work Phone: [facility] 11-07-2024 10:48-0400 Diastolic blood pressure 66 mm[Hg] Mariela Shahram [employer] Work Phone: [facility] 11-07-2024 10:48-0400 Heart rate 88 /min Mariela Shahram [employer] Work Phone: [facility] 11-07-2024 10:48-0400 Systolic blood pressure 153 mm[Hg] Mariela Shahram [employer] Work Phone: [facility] 11-07-2024 08:22-0400 Body temperature 98 [degF] Mariela Shahram [employer] Work Phone: [facility] 11-07-2024 08:22-0400 Respiratory rate 16 /min Mariela Shahram [employer] Work Phone: [facility] 11-07-2024 07:11-0400 SaO2% (BldA) [Mass fraction] 98 % Mariela Shahram [employer] Work Phone: [facility] 11-07-2024 03:38-0400 Body height 170.18 cm Mariela Shahram [employer] Work Phone: [facility] 11-07-2024 03:38-0400 Body mass index (BMI) [Ratio] 25.1 kg/m2 Mariela Shahram [employer] Work Phone: [facility] 11-07-2024 03:38-0400 Body weight 72.8 kg Mariela Shahram [employer] Work Phone: [facility] 11-06-2024 01:00-0400 Diastolic blood pressure 71 mm[Hg] Mariela Shahram [employer] Work Phone: [facility] 11-06-2024 01:00-0400 Heart rate 77 /min Mariela Shahram [employer] Work Phone: [facility] 11-06-2024 01:00-0400 Respiratory rate 18 /min Mariela Shahram [employer] Work Phone: [facility] 11-06-2024 01:00-0400 SaO2% (BldA) [Mass fraction] 99 % Mariela Shahram [employer] Work Phone: [facility] 11-06-2024 01:00-0400 Systolic blood pressure 169 mm[Hg] Mariela Shahram [employer] Work Phone: [facility] 11-06-2024 00:36-0400 Body temperature 98.3 [degF] Mariela Shahram [employer] Work Phone: [facility] 11-05-2024 22:21-0400 Body height 170.18 cm Mariela Shahram [employer] Work Phone: [facility] 11-05-2024 22:21-0400 Body mass index (BMI) [Ratio] 25.7 kg/m2 Mariela Shahram [employer] Work Phone: [facility] 11-05-2024 22:21-0400 Body weight 74.34 kg Mariela Shahram [employer] Work Phone: [facility] 10-31-2024 11:16-0400 Body mass index (BMI) [Ratio] 25.9 kg/m2 Mariela Shahram [employer] Work Phone: [facility] 10-31-2024 11:16-0400 Body temperature 98.4 [degF] Mariela Shahram [employer] Work Phone: [facility] 10-31-2024 11:16-0400 Body weight 74.89 kg Mariela Shahram [employer] Work Phone: [facility] 10-31-2024 11:16-0400 Diastolic blood pressure 83 mm[Hg] Mariela Shahram [employer] Work Phone: [facility] 10-31-2024 11:16-0400 Heart rate 71 /min Mariela Shahram [employer] Work Phone: [facility] 10-31-2024 11:16-0400 Respiratory rate 18 /min Mariela Shahram [employer] Work Phone: [facility] 10-31-2024 11:16-0400 SaO2% (BldA) [Mass fraction] 98 % Mariela Shahram [employer] Work Phone: [facility] 10-31-2024 11:16-0400 Systolic blood pressure 175 mm[Hg] Mariela Shahram [employer] Work Phone: [facility] 10-24-2024 20:51-0400 Body temperature 98 [degF] Mariela Shahram [employer] Work Phone: [facility] 10-24-2024 20:51-0400 Diastolic blood pressure 73 mm[Hg] Mariela Shahram [employer] Work Phone: [facility] 10-24-2024 20:51-0400 Heart rate 72 /min Mariela Shahram [employer] Work Phone: [facility] 10-24-2024 20:51-0400 Respiratory rate 18 /min Mariela Shahram [employer] Work Phone: [facility] 10-24-2024 20:51-0400 SaO2% (BldA) [Mass fraction] 98 % Mariela Shahram [employer] Work Phone: [facility] 10-24-2024 20:51-0400 Systolic blood pressure 126 mm[Hg] Mariela Shahram [employer] Work Phone: [facility] 10-24-2024 17:36-0400 Body height 170 cm Mariela Shahram [employer] Work Phone: [facility] 10-24-2024 17:36-0400 Body mass index (BMI) [Ratio] 26.2 kg/m2 Mariela Shahram [employer] Work Phone: [facility] 10-24-2024 17:36-0400 Body weight 75.79 kg Mariela Shahram [employer] Work Phone: [facility] 10-17-2024 14:15-0400 Body mass index (BMI) [Ratio] 26.2 kg/m2 Mariela Shahram [employer] Work Phone: [facility] 10-17-2024 14:15-0400 Body weight 75.74 kg Mariela Shahram [employer] Work Phone: [facility] 10-17-2024 14:15-0400 Diastolic blood pressure 87 mm[Hg] Mariela Shahram [employer] Work Phone: [facility] 10-17-2024 14:15-0400 Heart rate 60 /min Mariela Shahram [employer] Work Phone: [facility] 10-17-2024 14:15-0400 Respiratory rate 16 /min Mariela Shahram [employer] Work Phone: [facility] 10-17-2024 14:15-0400 Systolic blood pressure 148 mm[Hg] Mariela Shahram [employer] Work Phone: [facility] 09-07-2024 12:53-0500 Diastolic blood pressure 71 mm[Hg] Darrel Pringle MD [facility] 09-07-2024 12:53-0500 Systolic blood pressure 159 mm[Hg] Darrel Pringle MD [facility] 08-08-2024 09:55-0500 Body mass index (BMI) [Ratio] 26.9 kg/m2 Mariela Shahram [employer] Work Phone: [facility] 08-08-2024 09:55-0500 Body temperature 98.5 [degF] Mariela Shahram [employer] Work Phone: [facility] 08-08-2024 09:55-0500 Body weight 78.18 kg Mariela Shahram [employer] Work Phone: [facility] 08-08-2024 09:55-0500 Diastolic blood pressure 90 mm[Hg] Mariela Shahram [employer] Work Phone: [facility] 08-08-2024 09:55-0500 Heart rate 81 /min Mariela Shahram [employer] Work Phone: [facility] 08-08-2024 09:55-0500 Respiratory rate 18 /min Mariela Shahram [employer] Work Phone: [facility] 08-08-2024 09:55-0500 SaO2% (BldA) [Mass fraction] 99 % Mariela Shahram [employer] Work Phone: [facility] 08-08-2024 09:55-0500 Systolic blood pressure 196 mm[Hg] Mariela Shahram [employer] Work Phone: [facility] 07-18-2024 09:20-0500 Body mass index (BMI) [Ratio] 26.5 kg/m2 Mariela Shahram [employer] Work Phone: [facility] 07-18-2024 09:20-0500 Body temperature 97.8 [degF] Mariela Shahram [employer] Work Phone: [facility] 07-18-2024 09:20-0500 Body weight 76.91 kg Mariela Shahram [employer] Work Phone: [facility] 07-18-2024 09:20-0500 Diastolic blood pressure 88 mm[Hg] Mariela Shahram [employer] Work Phone: [facility] 07-18-2024 09:20-0500 Heart rate 71 /min Mariela Shahram [employer] Work Phone: [facility] 07-18-2024 09:20-0500 Respiratory rate 16 /min Mariela Shahram [employer] Work Phone: [facility] 07-18-2024 09:20-0500 SaO2% (BldA) [Mass fraction] 97 % Mariela Shahram [employer] Work Phone: [facility] 07-18-2024 09:20-0500 Systolic blood pressure 193 mm[Hg] Mariela Shahram [employer] Work Phone: [facility] 07-04-2024 14:18-0500 Body mass index (BMI) [Ratio] 26.4 kg/m2 Mariela Shahram [employer] Work Phone: [facility] 07-04-2024 14:18-0500 Body temperature 98.2 [degF] Mariela Olson [employer] Work Phone: [facility] 07-04-2024 14:18-0500 Body weight 76.43 kg Mariela Olson [employer] Work Phone: [facility] 07-04-2024 14:18-0500 Diastolic blood pressure 75 mm[Hg] Mariela Shahram [employer] Work Phone: [facility] 07-04-2024 14:18-0500 Heart rate 58 /min Mariela Olson [employer] Work Phone: [facility] 07-04-2024 14:18-0500 Respiratory rate 18 /min Mariela Olson [employer] Work Phone: [facility] 07-04-2024 14:18-0500 SaO2% (BldA) [Mass fraction] 100 % Mariela Olson [employer] Work Phone: [facility] 07-04-2024 14:18-0500 Systolic blood pressure 165 mm[Hg] Mariela Olson [employer] Work Phone: [facility] 12-11-2023 08:05-0400 Body temperature 97.9 [degF] Dr. Neville Islas Work Phone: [facility] 12-11-2023 08:05-0400 Diastolic blood pressure 70 mm[Hg] Dr. Neville Islas Work Phone: [facility] 12-11-2023 08:05-0400 Heart rate 59 /min Dr. Neville Islas Work Phone: [facility] 12-11-2023 08:05-0400 Respiratory rate 13 /min Dr. Neville Islas Work Phone: [facility] 12-11-2023 08:05-0400 SaO2% (BldA) [Mass fraction] 95 % Dr. Neville Islas Work Phone: [facility] 12-11-2023 08:05-0400 Systolic blood pressure 151 mm[Hg] Dr. Neville Islas Work Phone: [facility] 12-11-2023 02:39-0400 Body height 172.[address] Neville Islas Work Phone: [facility] 12-11-2023 02:39-0400 Body mass index (BMI) [Ratio] 29 kg/m2 Dr. Neville Islas Work Phone: [facility] 12-11-2023 02:39-0400 Body weight 86.[address] Neville Islas Work Phone: [facility] 08-16-2023 16:10-0500 Body temperature 97.7 [degF] Dr. Neville Islas Work Phone: [facility] 08-16-2023 16:10-0500 Diastolic blood pressure 69 mm[Hg] Dr. Neville Islas Work Phone: [facility] 08-16-2023 16:10-0500 Heart rate 64 /min Dr. Neville Islas Work Phone: [facility] 08-16-2023 16:10-0500 Respiratory rate 18 /min Dr. Neville Islas Work Phone: [facility] 08-16-2023 16:10-0500 SaO2% (BldA) [Mass fraction] 100 % Dr. Neville Islas Work Phone: [facility] 08-16-2023 16:10-0500 Systolic blood pressure 154 mm[Hg] Dr. Neville Islas Work Phone: [facility] 08-16-2023 13:54-0500 Body weight 78.[address] Neville Islas Work Phone: [facility] 08-15-2023 22:26-0500 Body mass index (BMI) [Ratio] 25.5 kg/m2 Dr. Neville Islas Work Phone: [facility] 08-15-2023 21:10-0500 Diastolic blood pressure 80 mm[Hg] [facility] 08-15-2023 21:10-0500 Heart rate 71 /min [facility] 08-15-2023 21:10-0500 Respiratory rate 18 /min [facility] 08-15-2023 21:10-0500 SaO2% (BldA) [Mass fraction] 98 % [facility] 08-15-2023 21:10-0500 Systolic blood pressure 187 mm[Hg] [facility] 08-15-2023 14:37-0500 Body height 172.72 cm [facility] 08-15-2023 14:37-0500 Body mass index (BMI) [Ratio] 27.3 kg/m2 [facility] 08-15-2023 14:37-0500 Body temperature 95.5 [degF] [facility] 08-15-2023 14:37-0500 Body weight 81.6 kg [facility] Encounters Encounter Date Encounter Type Care Provider Facility Start: 02-11-2025 Evaluation and management of inpatient Mariela Olson [employer] Work Phone: -Intensive Care Unit Start: 02-11-2025 Dr. Ramirez Horne DO -Intensive Care Unit Work Phone: Start: 02-07-2025 Dr. Neville guillen DO -Laboratory Specimen Work Phone: Start: 02-07-2025 End: 02-07-2025 ambulatory [facility] Start: 01-18-2025 Encounter for preprocedural cardiovascular examination Adrian Flores [facility] Start: 01-14-2025 End: 01-14-2025 ambulatory Mariela Olson [employer] Work Phone: [facility] Work Phone: Start: 01-14-2025 End: 01-14-2025 Dr. Adrian Floers MD -[facility]/Special Procedures Work Phone: Start: 01-14-2025 End: 01-14-2025 ambulatory Adrian Mark Facility:[facility] Start: 01-11-2025 ambulatory Darrel Pringle [facility] Start: 01-09-2025 End: 01-09-2025 Dr. Brenda Araujo MD -[facility] Work Phone: Start: 01-09-2025 End: 01-09-2025 ambulatory Mariela Olson [employer] Work Phone: [facility] Work Phone: Start: 01-06-2025 ambulatory Adriankaitlin Flores Facility:[facility] Start: 01-06-2025 Dr. Adrian Flores MD -[facility] Start: 12-14-2024 End: 12-14-2024 ambulatory Mariela Olson [employer] Work Phone: [facility] Work Phone: Start: 12-14-2024 End: 12-14-2024 Malinda Webster NP-C -Laboratory Work Phone: Start: 12-14-2024 End: 12-14-2024 ambulatory Malinda Webster [employer] Facility:[facility] Start: 12-11-2024 Encounter for preprocedural laboratory examination Brenda Araujo [facility] Start: 12-05-2024 End: 12-05-2024 ambulatory Mariela Olson [employer] Work Phone: [facility] Work Phone: Start: 12-05-2024 End: 12-05-[address] Brenda Araujo MD -Cat Brenda, [facility] Work Phone: Start: 12-05-2024 End: 12-05-2024 Dr. Brenda GarciaCat Brenda [facility] Work Phone: Start: 12-04-2024 End: 12-04-2024 [facility] Start: 12-04-2024 End: 12-04-2024 [facility] Work [facility]: Start: 12-04-2024 End: 12-05-2024 ambulatory [facility] Facility:[facility] Start: 11-30-2024 End: 11-30-2024 ambulatory Mariela Olson [employer] Work Phone: [facility] Work Phone: Start: 11-30-2024 End: 11-30-[address] Brenda Araujo MD -Cat Brenda, [facility] Work Phone: Start: 11-30-2024 End: 11-30-2024 [facility] Start: 11-30-2024 End: 11-30-2024 ambulatory [facility] Facility:[facility] Start: 11-28-2024 ambulatory Adrian Florse Facility:[facility] Start: 11-28-2024 Non-patient / Non-visit Dr. Norberto [facility] Start: 11-28-2024 End: 11-28-2024 Patient encounter procedure Malinda Webster [employer] -Cardiovascular Services Work Phone: Start: 11-28-2024 End: 11-28-2024 Dr. Adrian Flores MD [facility] Start: 11-28-2024 End: 11-28-[address] Brenda Araujo MD [facility] Work Phone: Start: 11-28-2024 End: 11-28-2024 Dr. Brenda Araujo MD [facility] Work Phone: Start: 11-28-2024 End: 11-28-2024 ambulatory Mariela Olson [facility] Start: 11-28-2024 End: 11-28-2024 ambulatory Malinda Webster [employer] Facility:[facility] Start: 11-20-2024 Non-patient / Non-visit Dr. Kalen Jang [facility] Work Phone: Start: 11-20-2024 Dr. Neville singh [facility] Work Phone: Start: 11-19-2024 Non-patient / Non-visit Dr. Kalen Jang [facility] Work Phone: Start: 11-19-2024 Dr. Neville singh [facility] Work Phone: Start: 11-19-2024 Non-patient / Non-visit Ari Chu matthieu DO -[facility] Start: 11-19-2024 Ari Friend DO -[facility] Start: 11-18-2024 Non-patient / Non-visit Dr. Marybel Schrader MD -[facility] Work Phone: Start: 11-18-2024 ambulatory Kelvin Schrader Fac ility:[facility] Start: 11-18-2024 End: 11-20-2024 Evaluation and management of inpatient Dr. Kelvin Schrader MD -Medical Surgical 3 Work Phone: Start: 11-18-2024 End: 11-20-2024 Dr. Neville Jang DO -Medical Surgical 3 Work Phone: Start: 11-09-2024 ambulatory Darrel Pringle [facility] Start: 11-09-2024 Office outpatient vi sit 25 minutes Darrel Pino [facility] Start: 11-07-2024 Non-patient / Non-visit Dr. Stevie francis [facility] Work Phone: Start: 11-07-2024 Dr. Stevie Harrington [facility] Work Phone: Start: 11-07-2024 End: 11-07-2024 ambulatory Adrian Flores Facility:[facility] Start: 11-07-2024 End: 11-07-2024 Non-patient / Non-visit Dr. Adrian Flores MD -[facility] Work Phone: Start: 11-07-2024 End: 11-07-2024 Dr. Adrian Flores MD -[facility] Work Phone: Start: 11-06-2024 Non-patient / Non-visit Ari Sage nd DO -[facility] Start: 11-06-2024 Ari Silvestre DO -[facility] Start: 11-06-2024 ambulatory [facility] Start: 11-06-2024 End: 11-07-2024 Evaluation and management [...] Work Phone: Start: 10-31-2024 End: 10-31-2024 ambulatory [facility] Facility:[facility] Start: 10-24-2024 End: 10-24-2024 Dr. Jerry Hightower DO -Emergency Department Work Phone: Start: 10-24-2024 End: 10-24-2024 Emergency department patient visit Mariela Olson [employer] Work Phone: -Emergency Department Work Phone: Start: 10-24-2024 End: 10-24-[address] Papi Hernandez MD -Cat Scan, [facility] Work Phone: Start: 10-24-[address] Papi Hernandez MD [facility] Start: 10-24-2024 End: 10-24-2024 Dr. Papi Hernandez MD -[facility] Start: 10-24-2024 End: 10-24-2024 ambulatory Marielabruce Olson [employer]C Work Phone: [facility] Work Phone: Start: 10-24-2024 End: 10-24-2024 ambulatory [facility] Facility:[facility] Start: 10-17-2024 End: 10-17-2024 ambulatory Mariela Shahram [employer]C Work Phone: [facility] Work Phone: Start: 10-17-2024 End: 10-17-2024 Patient encounter procedure Malinda Webster [employer]-C -Laboratory Work Phone: Start: 10-17-2024 End: 10-17-2024 Malinda Webster [employer]-C -Laboratory Work Phone: Start: 10-17-2024 End: 10-17-2024 Patient encounter procedure Malinda Webster [employer]-C -[facility] Work Phone: Start: 10-17-2024 End: 10-17-2024 Malinda Webster [employer]-C -[facility] Work Phone: Start: 10-17-2024 End: 10-17-2024 ambulatory Mariela Olson Facility:[facility] Start: 10-17-2024 End: 10-17-2024 ambulatory [facility] Facility:[facility] Start: 09-07-2024 End: 09-07-2024 Darrel Pringle Work Phone: [facility] Start: 09-07-2024 ambulatory Darrel Pringle [facility] Start: 09-05-2024 End: 09-05-2024 Patient encounter procedure Mariela Olson [employer]-C -[facility] Start: 09-05-2024 End: 09-05-2024 Mariela Olson [employer]-C -[facility]Osmel [facility] Start: 09-05-2024 End: 09-05-2024 ambulatory [facility] Facility:[facility] Start: 08-08-2024 End: 08-08-[address] Papi Hernandez MD -[facility] Work Phone: Start: 08-08-2024 End: 08-08-2024 Dr. Papi Hernandez MD -[facility] Work Phone: Start: 08-08-2024 End: 08-08-2024 ambulatory Mariela Shahram [facility] Start: 07-18-2024 End: 07-18-2024 Patient encounter procedure Selam FRANCISCO -[facility] Work Phone: Start: 07-18-2024 End: 07-18-2024 ambulatory Mariela Shahram [facility] Start: 07-13-2024 End: 07-13-2024 Darrel Pringle Work Phone: [facility] Start: 07-13-2024 ambulatory Darrel Pringle [facility] Start: 07-04-2024 End: 07-04-[address] Papi Hernandez MD -[facility] Work Phone: Start: 07-04-2024 End: 07-04-2024 ambulatory Mariela Olson [facility] Start: 07-04-2024 Encounter for other preprocedural examination [facility] Start: 06-25-2024 Encounter for other preprocedural examination Du Thomas [facility] Start: 06-22-2024 ambulatory Du Thomas Facility: [facility] Start: 06-22-2024 End: 06-22-2024 ambulatory Du Thomas Facility:[facility] Start: 06-20-2024 End: 06-20-2024 ambulatory Du Thomas Facility:[facility] Start: 06-18-2024 ambulatory Mariela Olson [facility] Start: 06-12-2024 End: 06-12-2024 ambulatory Mariela Shahram [facility] Start: 06-08-2024 End: 06-10-2024 Evaluation and management of inpatient Lucy Polanco Facility:[facility] Start: 06-08-2024 ambulatory Lucy Polanco [facility] Start: 06-07-2024 End: 06-07-2024 Emergency department patient visit Jerry Hightower Facility:[facility] Start: 06-07-2024 End: 06-08-2024 ambulatory Mariela Shahram Facility:[facility] Start: 05-31-2024 End: 05-31-2024 ambulatory Mariela Shahram [facility] Start: 05-25-2024 End: 05-25-2024 Darrel Pringle Work Phone: [facility] Start: 05-25-2024 ambulatory Darrel Pringle [facility] Start: 05-16-2024 End: 05-16-2024 ambulatory Mariela Olson [facility] Start: 05-10-2024 End: 05-10-2024 ambulatory Du Thomas Facility:[facility] Start: 05-07-2024 End: 05-07-2024 ambulatory Mariela Shahram Facility:[facility] Start: 04-27-2024 ambulatory Du Thomas Facility: [facility] Start: 04-27-2024 End: 05-01-2024 Evaluation and management of inpatient Du Thomas Facility:[facility] Start: 04-27-2024 ambulatory Du Thomas Facility: [facility] Start: 04-25-2024 Encounter for preprocedural cardiovascular examination [place] [facility] Start: 04-25-2024 End: 04-25-2024 ambulatory Mariela Shahram [facility] Start: 04-23-2024 Patient encounter status Mariela Olson [employer] Work Phone: [facility] Comment on above: Right hemicolectomy 04/27/2024 Start: 04-20-2024 End: 04-20-2024 ambulatory Mariela Olson [facility] Start: 04-13-2024 ambulatory Ari Silvestre Facility :[facility] Start: 04-13-2024 ambulatory Len Staton Facility:[facility] Start: 04-12-2024 End: 04-12-2024 ambulatory Mariela Olson [facility] Start: 04-12-2024 ambulatory Darrel Ferrerai ty:[facility] Start: 04-12-2024 End: 04-15-2024 Evaluation and management of inpatient Darrel Carpenter Facility:[facility] Start: 04-11-2024 End: 04-11-2024 ambulatory Mariela Olson Facility:[facility] Start: 03-30-2024 End: 03-30-2024 Darrel Pringle Work Phone: [facility] Start: 03-30-2024 ambulatory Darrel Pringle [facility] Start: 02-15-2024 End: 02-15-2024 ambulatory Lisandra Lazcano Facility:[facility] Start: 02-10-2024 End: 02-10-2024 Darrel Pringle Work Phone: [facility] Start: 02-03-2024 End: 02-03-2024 ambulatory Neville Islas Facility:[facility] Start: 12-21-2023 End: 12-21-2023 Darrel Pringle Work Phone: [facility] Start: 12-11-2023 End: 12-11-2023 Emergency department patient visit Dr. Neville Islas Work Phone: [facility]-Emergency Department Work Phone: Start: 10-26-2023 End: 10-26-2023 Darrel Pringle Work Phone: [facility] Start: 08-24-2023 End: 08-24-2023 Darrel Pringle Work Phone: [facility] Start: 08-22-2023 End: 08-22-[address] Neville Islas Work Phone: [facility]-Ramesh Chaconeyhien Carnes [facility] Start: 08-16-2023 Non-patient / Non-visit Dr. Kalen Islas Work Phone: [facility] Work Phone: Start: 08-16-2023 Non-patient / Non-visit Dr. Kalen Islas Work Phone: [facility] Start: 08-16-2023 Non-patient / Non-visit Dr. Kalen Islas Work Phone: [facility] Start: 08-15-2023 End: 08-15-2023 Non-patient / Non-visit Dr. Neville Islas Work Phone: [facility] Work Phone: Start: 08-15-2023 End: 08-16-2023 Evaluation and management of inpatient [facility]-Pro[facility] Care Unit Work Phone: Start: 08-15-2023 Non-patient / Non-visit Dr. Kalen Islas Work Phone: [facility] Work Phone: Start: 06-29-2023 End: 06-29-2023 Darrel Pringle Work Phone: [facility] Start: 05-11-2023 End: 05-11-2023 Darrel Pringle Work Phone: [facility] Start: 03-30-2023 End: 03-30-2023 Darrel Pringle Work Phone: [facility] Start: 02-23-2023 End: 02-23-2023 Darrel Pringle Work Phone: [facility] Start: 01-25-2023 End: 01-25-2023 ambulatory [facility] Work Phone: Start: 01-25-2023 End: 01-25-2023 Patient encounter procedure [facility]-Osmel Chacon [facility] Start: 01-19-2023 End: 01-19-2023 Darrel Pringle [...] encounter status Beata Herrera MD Work Phone: [facility] Work Phone: Procedures Date Procedure Procedure Detail Performing Clinician Start: 02-11-2025 Computed tomography of abdomen and pelvis with intravenous contrast Mariela Olson [employer] Work Phone: Start: 02-10-2025 Blood count smear mcrscp w/mnl difrntl wbc count Mariela Olson [employer] Work Phone: Start: 02-10-2025 Calculation of international normalized ratio Mariela Olson [employer] Work Phone: Start: 02-10-2025 Estimated creatinine clearance Mariela burrell [employer] Work Phone: Start: 02-10-2025 Mean corpuscular hemoglobin concentration determination Mariela Olson [employer] Work Phone: Start: 02-10-2025 Nucleated red blood cell count procedure Mariela Olson [employer] Work Phone: Start: 02-10-2025 Platelet mean volume determination Mariela Olson [employer] Work Phone: Start: 02-10-2025 Triacylglycerol lipase measurement Mariela Olson [employer] Work Phone: Start: 02-10-2025 Urine microscopy: red cells Mariela CALEROC Work Phone: Start: 02-10-2025 Urnls dip stick/tablet reagent auto microscopy Mariela CALEROC Work Phone: Start: 02-10-2025 Plain chest X-ray Mariela CALEROC Work Phone: Start: 02-07-2025 Urine culture Mariela Olson [employer] Work Phone: Start: 02-07-2025 Urnls dip stick/tablet reagent auto microscopy Mariela Olson [employer] SUPERVISORJoseC Work Phone: Start: 01-11-2025 Computerized ophthalmic imaging retina Darrel Pringle Start: 01-11-2025 Eylea 1mg Pre-filled Syringe Darrel howard Start: 01-11-2025 Intravitreal njx pharmacologic agt spx Darrel Pringle Start: 01-08-2025 Blood count smear mcrscp w/mnl difrntl wbc count Mariela Olson [employer] Work Phone: Start: 01-08-2025 Mean corpuscular hemoglobin concentration determination Mariela Olson [employer] Work Phone: Start: 01-08-2025 Nucleated red blood cell count procedure Mariela Olson [employer] Work Phone: Start: 01-08-2025 Platelet mean volume determination Mariela Olson [employer] Work Phone: Start: 12-14-2024 X-ray of chest, PA and lateral views Mariela Olson [employer]C Work Phone: Start: 12-14-2024 Blood count smear mcrscp w/mnl difrntl wbc count Mariela Olson [employer] Work Phone: Start: 12-14-2024 Mean corpuscular hemoglobin concentration determination Mariela Olson [employer] Work Phone: Start: 12-14-2024 Nucleated red blood cell count procedure Mariela Olson [employer]-C Work Phone: Start: 12-14-2024 Platelet mean volume determination Mariela Olson [employer]-C Work Phone: Start: 12-14-2024 Total iron binding capacity measurement Mariela Olson [employer] Work Phone: Start: 12-05-2024 Biopsy/Inj or Needle Placement Marielabruce burrell [employer]C Work Phone: Start: 12-05-2024 Mariela Olson [employer] Work Phone: Start: 12-05-2024 Blood count smear mcrscp w/mnl difrntl wbc count Mariela Olson [employer] Work Phone: Start: 12-05-2024 Calculation of international normalized ratio Mariela Olson [employer] Work Phone: Start: 12-05-2024 Mean corpuscular hemoglobin concentration determination Mariela Olson [employer]-C Work Phone: Start: 12-05-2024 Nucleated red blood cell count procedure Mariela Olson [employer]-C Work Phone: Start: 12-05-2024 Platelet mean volume determination Mariela Olson [employer] Work Phone: Start: 11-30-2024 CT of thorax with contrast Mariela Olson [employer]C Work Phone: Start: 11-20-2024 Blood count smear mcrscp w/mnl difrntl wbc count Mariela Olson [employer]-C Work Phone: Start: 11-20-2024 Mean corpuscular hemoglobin concentration determination Mariela Olson [employer]-C Work Phone: Start: 11-20-2024 Nucleated red blood cell count procedure Mariela Olson [employer]-C Work Phone: Start: 11-20-2024 Platelet mean volume determination Mariela Olson [employer]-C Work Phone: Start: 11-19-2024 Colonoscopy Mariela Olson [employer]-C Work Phone: Start: 11-19-2024 Estimated creatinine clearance Mariela burrell [employer]-C Work Phone: Start: 11-18-2024 Computed tomography of abdomen and pelvis with intravenous contrast Mariela Olson [employer] Work Phone: Start: 11-09-2024 Computerized ophthalmic imaging retina Darrel Pringle Start: 11-09-2024 Eylea Free Drug Darrel Pringle Start: 11-09-2024 Intravitreal njx pharmacologic agt spx Darrel Pringle Start: 11-07-2024 Blood count smear mcrscp w/mnl difrntl wbc count Mariela Olson [employer] Work Phone: Start: 11-07-2024 Estimated creatinine clearance Mariela burrell [employer]-C Work Phone: Start: 11-07-2024 Mean corpuscular hemoglobin concentration determination Mariela Olson [employer]-C Work Phone: Start: 11-07-2024 Nucleated red blood cell count procedure Mariela Olson [employer]-C Work Phone: Start: 11-07-2024 Platelet mean volume determination Mariela Olson [employer]-C Work Phone: Start: 11-06-2024 Flexible fiberoptic sigmoidoscopy Mariela Olson [employer]-C Work Phone: Start: 11-06-2024 Clostridium difficile detection Mariela cruz [employer]-C Work Phone: Start: 11-06-2024 Lactoferrin measurement Mariela Olson [employer]- C Work Phone: Start: 11-06-2024 Nucleic acid assay Mariela Olson [employer]-C Work Phone: Start: 11-06-2024 Ova OR parasites identification Mariela gamezar [employer]-C Work Phone: Start: 11-06-2024 Ova&parasites direct smears concentration & id Mariela Olson [employer]-C Work Phone: Start: 11-06-2024 Iadna-dna/rna gi pthgn multiplex probe tq 6-11 Mariela Olson [employer]-C Work Phone: Start: 11-06-2024 Osmolality measurement, serum Mariela vaca [employer]-C Work Phone: Start: 11-06-2024 Serum inorganic phosphate measurement Mariela Olson [employer]-C Work Phone: Start: 11-06-2024 Total iron binding capacity measurement Mariela Olson [employer]-C Work Phone: Start: 11-05-2024 Computed tomography of abdomen and pelvis with contrast Mariela Olson [employer]-C Work Phone: Start: 11-05-2024 Assay of lactate Mariela Olson [employer]-C Work Phone: Start: 11-05-2024 Calculation of international normalized ratio Mariela Olson [employer]-C Work Phone: Start: 11-05-2024 Measurement of occult blood in stool specimen using immunoassay Mariela Olson [employer]-C Work Phone: Start: 10-24-2024 Urine microscopy: red cells Mariela Olson [employer]-C Work Phone: Start: 10-24-2024 Urnls dip stick/tablet reagent auto microscopy Mariela Olson [employer]-C Work Phone: Start: 10-24-2024 Blood count smear mcrscp w/mnl difrntl wbc count Mariela Olson [employer]-C Work Phone: Start: 10-24-2024 Estimated creatinine clearance Mariela burrell [employer]-C Work Phone: Start: 10-24-2024 Mean corpuscular hemoglobin concentration determination Mariela Olson [employer]-C Work Phone: Start: 10-24-2024 Nucleated red blood cell count procedure Mariela Olson [employer]-C Work Phone: Start: 10-24-2024 Platelet mean volume determination Mariela Olson [employer]-C Work Phone: Start: 10-24-2024 Triacylglycerol lipase measurement Mariela Olson [employer]-Jenifer Work Phone: Start: 10-24-2024 Ultrasound of scrotum with Doppler and color flow imaging Mariela Olson [employer] Work Phone: Start: 10-24-2024 Computed tomography of abdomen and pelvis with intravenous contrast Mariela Olson [employer]-C Work Phone: Start: 10-24-2024 Carcinoembryonic antigen cea Mariela guzman [employer]-C Work Phone: Comment on above: Nonsmokers <3.9 Smokers <5.6[employer] Electrochemiluminescence Immunoassay(ECLIA)Values obtained with different assay methods or kitscannot be used interchangeably. Results cannot beinterpreted as absolute evidence of the presence orabsence of malignant disease.Performed at: [facility] [id number] Director: Jian Paredes PhD, Phone: [phone] Start: 10-24-2024 Estimated creatinine clearance Mariela burrell NP-C Work Phone: Start: 10-24-2024 Mean corpuscular hemoglobin concentration determination Mariela Olson NP-C Work Phone: Start: 10-24-2024 Nucleated red blood cell count procedure Mariela Olson [employer] Work Phone: Start: 10-24-2024 Platelet mean volume determination Mariela Olson [employer]-C Work Phone: Start: 10-24-2024 Procedure Mariela Olson [employer]-C Work Phone: Start: 10-17-2024 Urine microscopy: red cells Mariela Olson [employer]-C Work Phone: Start: 10-17-2024 Urnls dip stick/tablet reagent auto microscopy Mariela Olson [employer]-C Work Phone: Start: 09-07-2024 End: 09-07-2024 Computerized ophthalmic imaging retina Darrel Pringle MD Start: 09-07-2024 End: 09-07-2024 Eylea 1mg Pre-filled Syringe Darrel howard MD Start: 09-07-2024 Eylea 1mg Pre-filled Syringe Darrel howard Start: 09-07-2024 End: 09-07-2024 Eylea Free Drug Darrel Pringle MD Start: 09-07-2024 End: 09-07-2024 Intravitreal njx pharmacologic agt spx Darrel Pringle MD Start: 09-05-2024 Albumin/Globulin ratio Mariela Olson [employer]-C Work Phone: Start: 09-05-2024 Anion gap measurement Mariela Olson [employer]-C Work Phone: Start: 09-05-2024 Blood count smear mcrscp w/mnl difrntl wbc count Mariela Olson [employer]-C Work Phone: Start: 09-05-2024 BUN/Creatinine ratio Mariela Olson [employer]-C Work Phone: Start: 09-05-2024 Mean corpuscular hemoglobin concentration determination Mariela Olson [employer]-C Work Phone: Start: 09-05-2024 Measurement of renal function Mariela Schwartz ar [employer]-C Work Phone: Comment on above: GFR Calc Start: 09-05-2024 Nucleated red blood cell count procedure Mariela Olson [employer]-C Work Phone: Start: 09-05-2024 Platelet mean volume determination Mariela Olson [employer]-C Work Phone: Start: 07-18-2024 Carcinoembryonic antigen cea Mariela Cifuentesga r [employer]-C Work Phone: Comment on above: Nonsmokers <3.9 Smokers <5.6[employer] Electrochemiluminescence Immunoassay(ECLIA)Values obtained with different assay methods or kitscannot be used interchangeably. Results cannot beinterpreted as absolute evidence of the presence orabsence of malignant disease.Performed at: [place] [address] [place], [place] [id number] Director: Jian Paredes PhD, Phone: [phone] Start: 07-18-2024 Measurement of renal function Mariela vaca [employer]-C Work Phone: Comment on above: GFR Calc Start: 07-13-2024 End: 07-13-2024 Computerized ophthalmic imaging retina Darrel Pringle MD Start: 07-13-2024 End: 07-13-2024 Eylea Free Drug Darrel Pringle MD Start: 07-13-2024 Eylea Free Drug Darrel Pringle Start: 07-13-2024 End: 07-13-2024 Intravitreal njx pharmacologic agt spx Darrel Pringle MD Start: 07-04-2024 Calculation of international normalized ratio Mariela Olson [employer]-C Work Phone: Start: 05-29-2024 Positron emission tomography with computed tomography Mariela Olson [employer]-C Work Phone: Start: 05-25-2024 End: 05-25-2024 Computerized ophthalmic imaging retina Darrel Pringle MD Start: 05-25-2024 End: 05-25-2024 Eylea Free Drug Darrel Pringle MD Start: 05-25-2024 Eylea Free Drug Darrel Pringle Start: 05-25-2024 End: 05-25-2024 Intravitreal njx pharmacologic agt spx Darrel Pringle MD Start: 05-16-2024 Ferritin measurement Mariela Olson [employer]-C Work Phone: Start: 05-16-2024 Immature reticulocyte fraction Mariela burrell [employer]-C Work Phone: Start: 05-16-2024 Total iron binding capacity measurement Mariela Olson [employer]-C Work Phone: Start: 03-30-2024 End: 03-30-2024 Computerized [...] bypass grafting Hx of CABG Malinda Webster [employer]-C Comment on above: FUNG in situ mammary [...] 04-01-2025 Influenza vaccination Influenza Vaccine (Season Ended) [facility] Start: 02-11-2025 Hospital admission, emergency, from emergency room, medical nature [facility] Start: 02-11-2025 Centesis [facility] Start: 02-11-2025 Verification routine [facility] Start: 02-11-2025 Admission procedure [facility] Start: 01-14-2025 Patient discharge [facility] Start: 01-09-2025 Patient referral [facility] Work Phone: Start: 12-05-2024 Catheterization of vein [facility] Start: 12-05-2024 Oxygen therapy [facility] Start: 12-05-2024 Patient discharge [facility] Start: 12-05-2024 Vital signs measurements [facility] Start: 12-05-2024 Following clinical pathway protocol [facility] [facility] Start: 12-05-2024 [facility] Start: 11-20-2024 Patient discharge [facility] Start: 11-18-2024 Application of intermittent pneumatic compression device [facility] Start: 11-18-2024 Following clinical pathway protocol [facility] Start: 11-18-2024 Ambulation without limitation [facility] Start: 11-18-2024 Assessment of risk of venous thromboembolism [facility] Start: 11-18-2024 Insertion of catheter into peripheral vein [facility] Start: 11-18-2024 Providing care according to standard [facility] Start: 11-18-2024 Referral to gastroenterology service [facility] Start: 11-18-2024 [facility] Start: 11-18-2024 Verification routine [facility] Start: 11-18-2024 Admission procedure [facility] Start: 11-18-2024 Patient referral to dietitian [facility] Start: 11-09-2024 Jared Raymond 8 Weeks/ / MAY/ POSS EYLEA/ PAP [facility] Work Phone: Start: 11-07-2024 Patient discharge [facility] Start: 11-07-2024 Care planning and problem solving actions [facility] Start: 11-06-2024 Ova and Parasites Ova and Parasites [facility] Start: 11-06-2024 Enteric precautions [facility] Start: 11-06-2024 Application of intermittent pneumatic compression device [facility] Start: 11-06-2024 Following clinical pathway protocol [facility] Start: 11-06-2024 Assessment of risk of venous thromboembolism [facility] Start: 11-06-2024 Documentation procedure [facility] Start: 11-06-2024 Insertion of catheter into peripheral vein [facility] Start: 11-06-2024 Measuring intake and output [facility] Start: 11-06-2024 Oxygen therapy [facility] Start: 11-06-2024 Providing care according to standard [facility] Start: 11-06-2024 Provision of activity privileges [facility] Start: 11-06-2024 Referral to gastroenterology service [facility] Start: 11-06-2024 Referral to service [facility] Start: 11-06-2024 [facility] Start: 11-06-2024 Admission procedure [facility] Start: 11-06-2024 Verification routine [facility] Start: 11-06-2024 Hospital admission, emergency, from emergency room, medical nature [facility] Start: 11-06-2024 Patient referral to dietitian [facility] Start: 11-06-2024 [facility] Start: 10-24-2024 [facility] Start: 10-24-2024 [facility] Start: 09-07-2024 Smoking cessation education Tobacco cessation counseling [facility] Start: 08-01-2024 Advance Directive Discussion Advance Directive Discussion [facility] Start: 07-13-2024 Smoking cessation education Tobacco cessation counseling [facility] Start: 07-04-2024 Patient referral [facility] Work Phone: Start: 04-01-2024 Covid-19 Vaccine () Covid-19 Vaccine () [facility] Start: 03-30-2024 Smoking cessation education Tobacco cessation counseling [facility] Start: 02-10-2024 Smoking cessation education Tobacco cessation counseling [facility] Start: 12-21-2023 Smoking cessation education Tobacco cessation counseling [facility] Start: 12-11-2023 [facility] Start: 08-16-2023 Patient discharge [facility] Start: 08-15-2023 Following clinical pathway protocol [facility] Start: 08-15-2023 Notification of physician [facility] Start: 08-15-2023 [facility] Start: 08-15-2023 Admission procedure [facility] Start: 08-15-2023 Hospital admission, emergency, from emergency room, medical nature [facility] Start: 08-15-2023 Patient referral to dietitian [facility] Start: 06-29-2023 Smoking cessation education Tobacco cessation counseling [facility] Start: 05-11-2023 Smoking cessation education Tobacco cessation counseling [facility] Start: 05-05-2023 DIABETES SCREEN DIABETES SCREEN [facility] Start: 05-05-2023 Diabetes Screening Diabetes Screening [facility] Start: 03-30-2023 Smoking cessation education Tobacco cessation counseling [facility] Start: 01-19-2023 Smoking cessation education Tobacco cessation counseling [facility] Start: 12-08-2022 Smoking cessation education Tobacco cessation counseling [facility] Start: 09-29-2022 Smoking cessation education Tobacco cessation counseling [facility] Start: 09-01-2022 Smoking cessation education Tobacco cessation counseling [facility] Start: 04-01-2022 Influenza vaccination INFLUENZA (#1) [facility] Start: 08-01-2021 ADVANCE DIRECTIVE DISCUSSION ADVANCE DIRECTIVE DISCUSSION [facility] Start: 05-05-2021 Hepatitis B surface antibody level LDL CHOLESTEROL [facility] Start: 08-03-2020 ANNUAL PCP TEAM CHRONIC DISEASE VISIT ANNUAL PCP TEAM CHRONIC DISEASE VISIT [facility] Start: 07-20-2020 Adult depression screening assessment DEPRESSION SCREENING [facility] Start: 2019 RSV Vaccine (1 - 1-dose 75+ series) RSV Vaccine (1 - 1-dose 75+ series) [facility] Start: 03-01-2009 Medicare Annual Wellness Visit Medicare Annual Wellness Visit [facility] Start: 1994 Pneumococcal Vaccine: 50+ (1 of 1 - PCV) Pneumococcal Vaccine: 50+ (1 of 1 - PCV) [facility] Start: 1994 SHINGRIX VACCINE (1 of 2) SHINGRIX VACCINE (1 of 2) [facility] Start: 1963 Urine microalbumin profile [facility] Start: 1962 Annual PCP Team Chronic Disease Visit Annual PCP Team Chronic Disease Visit [facility] Start: 1962 Anxiety Screening Anxiety Screening [facility] Start: 1962 BP CONTROLLED (<130/80) BP CONTROLLED (<130/80) [facility] in Start: 1962 Depression Screening Depression Screening [facility] Start: 1962 HEPATITIS C SCREENING HEPATITIS C SCREENING [facility] Start: 1950 PNEUMOCOCCAL: 65+ (1 - PCV) PNEUMOCOCCAL: 65+ (1 - PCV) [facility] Start: 1944 COVID-19 VACCINE (#1) COVID-19 VACCINE (#1) [facility] Anion gap in Serum o r Plasma [facility] BUN/Creatinine ratio [facility] Calcium [Mass/volume ] in Serum or Plasma [facility] Carbon dioxide, tota l [Moles/volume] in Central venous blood [facility] Carcinoembryonic Ag [Mass/volume] in Serum or Plasma [facility] Carcinoembryonic Ag [Mass/volume] in Serum or Plasma [facility] Carcinoembryonic Ag [Mass/volume] in Serum or Plasma [facility] CBC W Auto Different ial panel - Blood [facility] Comprehensive metabo lic 2000 panel - Serum or Plasma [facility] Creatinine [Mass/vol ume] in Serum or Plasma [facility] CT Abdomen and Pelvi s W contrast IV [facility] Erythrocyte mean corpuscular volume determination [facility] Ferritin [Mass/volum e] in Serum or Plasma [facility] Glucose [Mass/volume ] in Serum or Plasma [facility] Hematocrit [Volume Fraction] of Blood [facility] Hemoglobin [Mass/vol ume] in Blood [facility] Iron and Iron bindin g capacity panel - Serum or Plasma [facility] Leukocytes [#/volume ] in Blood [facility] Magnesium measurement [facility] Mean corpuscular hem oglobin concentration determination [facility] Mean corpuscular hem oglobin determination [facility] Measurement of renal function [facility] Neutrophil count [facility] Neutrophil percent differential count [facility] Ova OR parasites identification [facility] Patient Education [facility] Work Phone: Patient referral [facility] Work Phone: Platelets [#/volume] in Blood [facility] Potassium measurement [facility] Red blood cell count [facility] Red cell distributio n width determination [facility] Serum chloride measurement [facility] Sodium measurement [facility] Urea nitrogen [Mass/ volume] in Serum or Plasma [facility] Immunizations Immunization Date Immunization Notes Care Provider [facility] 08-03-2019 influenza virus vacc ine, unspecified formulation Papi Hernandez MD Work Phone: [facility] Payers Date Payer Category Payer Medicare [id number] 2024 Self-pay [id number] 2024 Self-pay [id number] 2022 Self-pay 0 [id number] 2009 Medicare MEDICARE [id number] 1944 Unknown [id number] 2.0.1.221563.3.579.2.134 7 1944 Unknown [id number] .0.1.350870.3.579.2.134 7 1944 Unknown [id number] 2.840.1.335593.3.579.2.134 7 1944 Unknown [id number] 2.16840.1.873338.3.579.2.134 7 1944 Unknown [id number] 2.0.1.109183.3.579.2.134 7 1944 Unknown [id number] 2.160.1.270546.3.579.2.134 7 Unknown [id number] 2.16.840.1.659610.3.579.2.462 Unknown [id number] 2.16.840.1.976416.3.579.2.462 Unknown [id number] 2.16.840.1.846322.3.579.2.462 Unknown [id number] 2.16.840.1.408462.3.579.2.462 Unknown [id number] 2.16840.1.127079.3.579.2.462 Unknown [id number] 2.840.1.639643.3.579.2.462 Unknown [id number] 2.840.1.602741.3.579.2.462 Unknown [id number] 2.840.1.771894.3.579.2.462 Unknown [id number] 2.840.1.285802.3.579.2.462 Unknown [id number] 2.840.1.238106.3.579.2.462 Unknown [id number] 2.840.1.904385.3.579.2.462 Unknown [id number] 2.840.1.167921.3.579.2.462 Unknown [id number] 2.840.1.201018.3.579.2.462 Unknown [id number] 2.840.1.321097.3.579.2.462 Unknown [id number] 2.840.1.233860.3.579.2.462 Unknown [id number] 2.840.1.890671.3.579.2.462 Unknown [id number] 2.16.840.1.087448.3.579.2.462 Unknown [id number] 2.16840.1.267664.3.579.2.462 Unknown [id number] 2.840.1.544825.3.579.2.462 Unknown [id number] 2.16.840.1.343884.3.579.2.462 Unknown [id number] 2.16.840.1.300317.3.579.2.462 Unknown [id number] 2.16.840.1.979421.3.579.2.462 Unknown [id number] 2.16.840.1.201992.3.579.2.462 Unknown [id number] 2.16.840.1.069101.3.579.2.462 Unknown [id number] 2.16.840.1.503752.3.579.2.462 Unknown [id number] 2.16.840.1.826208.3.579.2.462 Unknown [id number] 2.16.840.1.197821.3.579.2.462 Unknown [id number] 2.840.1.081312.3.579.2.462 Unknown [id number] 2.840.1.778549.3.579.2.462 Unknown [id number] 2.840.1.163228.3.579.2.462 Unknown [id number] 2.16.840.1.830946.3.579.2.462 Unknown [id number] 2.16840.1.476526.3.579.2.462 Unknown [id number] 2.16.840.1.666423.3.579.2.462 Unknown [id number] 2.16.840.1.531923.3.579.2.462 Unknown [id number] 2.16.840.1.572078.3.579.2.462 Unknown [id number] 2.16.840.1.711586.3.579.2.462 Unknown [id number] 2.16.840.1.048819.3.579.2.462 Unknown [id number] 2.16.840.1.659377.3.579.2.462 Unknown [id number] 2.16.840.1.692501.3.579.2.462 Unknown [id number] 2.16.840.1.031206.3.579.2.462 Unknown [id number] 2.16.840.1.745591.3.579.2.462 Unknown [id number] 2.16.840.1.292116.3.579.2.462 Unknown [id number] 2.16.840.1.920773.3.579.2.462 Unknown [id number] 2.16.840.1.903422.3.579.2.462 Unknown [id number] 2.16.840.1.589354.3.579.2.462 Unknown [id number] 2.840.1.554731.3.579.2.462 Unknown [id number] 2.16840.1.381751.3.579.2.462 Unknown [id number] 2.16840.1.554603.3.579.2.462 Unknown [id number] 2.16840.1.695298.3.579.2.462 Unknown [id number] 2.16.840.1.462238.3.579.2.462 Unknown [id number] 2.16840.1.426784.3.579.2.462 Unknown [id number] 2.16840.1.423205.3.579.2.462 Unknown [id number] 2.16.840.1.484956.3.579.2.462 Unknown [id number] 2.16.840.1.039394.3.579.2.462 Unknown [id number] 2.16.840.1.186789.3.579.2.462 Unknown [id number] 2.16.840.1.707679.3.579.2.462 Unknown [id number] 2.16840.1.844027.3.579.2.462 Unknown [id number] 2.16.840.1.227232.3.579.2.462 Unknown [id number] 2.16.840.1.056784.3.579.2.462 Unknown [id number] 2.16.840.1.186465.3.579.2.462 Unknown [id number] 2.16.840.1.487734.3.579.2.462 Unknown [id number] 2.16.840.1.481397.3.579.2.462 Unknown [id number] 2.16.840.1.798399.3.579.2.462 Unknown [id number] 2.16.840.1.999337.3.579.2.462 Unknown [id number] 2.16840.1.004599.3.579.2.462 Unknown [id number] 2.16.840.1.014098.3.579.2.462 Unknown [id number] 2.16.840.1.529309.3.579.2.462 Unknown [id number] 2.16.840.1.438582.3.579.2.462 Unknown [id number] 2.16.840.1.740641.3.579.2.462 Unknown [id number] 2.16840.1.326229.3.579.2.462 Unknown [id number] 2.16.840.1.633919.3.579.2.462 Unknown [id number] 2.16840.1.733396.3.579.2.462 Unknown [id number] 2.16840.1.193379.3.579.2.462 Social History Date Type Detail Facility Start: 08-01-1959 End: 05-05-2020 Tobacco smoking status COIS Occasional tobacco smoker [facility] End: 08-01-1993 History of tobacco use Cigar Smoker [facility] Start: 05-07-2019 End: 07-06-2020 Cigarettes smoked current (pack per day) - Reported 1 [facility] Start: 05-07-2019 End: 05-05-2020 Tobacco use and exposure Smokeless tobacco non-user [facility] Start: 05-05-2020 Alcohol intake Current non-dr latcher of alcohol (finding) [facility] Start: 05-07-2019 Tobacco Comment smokes occasio nal cigars. quit cigarettes in 1993 [facility] Start: 1945 Sex Assigned At Not on file [facility] Start: 03-06-2018 End: 09-07-2024 Tobacco smoking status COIS Unknown if ever smoked [facility] Start: 01-25-2023 None [facility] Start: 10-31-2014 Spouse/ Signif icant Other [facility] Start: 01-25-2023 Cigarettes [facility] Start: 1945 Sex Assigned At Male W [facility] Start: 09-07-2024 Alcohol intake Alcohol Use Details [facility] [employer] [facility] [facility] Start: 10-24-2024 End: 02-11-2025 Tobacco smoking status NHIS Ex-smoker (finding) [facility] Start: 10-24-2024 End: 11-20-2024 Sex Male (finding) [facility] Start: [birth year]-01-1958 End: 08-01-1993 History of tobacco use Cigarette Smoker [facility] Start: 05-05-2020 End: 07-06-2020 Tobacco use panel [facility] PHQ2 Score 0 [facility] NEGATED: Highlighted rowStart: 09-07-2024 History of tobacco use Ex-cigarette smoker [facility] Medical Equipment Procedure Code Equipment Code Equipment Origin al Text Equipment Identifier Dates Sigmoidoscopy, flexible [id number] FDA Start: 11-06-2024 Colonoscopy ()[id number] FDA Start: 04-13-2024 Colonoscopy ()[id number] [id number] FDA Start: 11-19-2024 [place] Thk1.65mm P tfe 4x.5in Cardiovascular Sterile - [id number] Start: 07-19-2019 CLIP,HEMDENILSON HARDY FDA Sta rt: 04-27-2024 CLIP,HEMDENILSON SHEPHERD FDA St art: 04-27-2024 ()[id number] FDA Start: 04-27-2024 ()[id number] [id number] FDA Start: 04-27-2024 CLIP,HEMDENILSON SHEPHERD FDA [...] Start: 04-27-2024 FDA Start: 04-27-2024 CLIP,SAWYER LERNER [employer] FDA Sta rt: 04-27-2024 CLIP,HEMDENILSON [facility] FDA St art: 04-27-2024 FDA Start: 04-27-2024 FDA Start: 04-27-2024 FDA Start: 04-27-2024 FDA Start: 04-27-2024 FDA Start: 04-27-2024 FDA Start: 04-27-2024 FDA Start: 04-27-2024 FDA Start: 04-27-2024 Goals Date Patient Goal Desired Activity /State Functional Status Date Assessment Result Facility 11-20-2024 Functional status Ambulates [facility] Work Phone: 11-07-2024 Functional status Ambulates;Up ad raghavendra [facility] Work Phone: 08-16-2023 Functional status Ambulates;Bath room Privilege [facility] Work Phone: 08-15-2023 Functional status Tolerates Activity Well [facility] Work Phone: 07-23-2019 Are you deaf, or do you have serious difficulty hearing No 07/23/2019 4:22 PM Isaac Guzman APRN.SOFTWARE APPLICATION TESTER No [facility] Work Phone: 07-23-2019 Are you blind, or do you have serious difficulty seeing, even when wearing glasses No 07/23/2019 4:22 PM Isaac Guzman APRN.SOFTWARE APPLICATION TESTER No [facility] 07-23-2019 Do you have serious difficulty walking or climbing stairs No 07/23/2019 4:22 PM Isaac Guzman APRN.SOFTWARE APPLICATION TESTER No [facility] 07-23-2019 Do you have difficul ty dressing or bathing No 07/23/2019 4:22 PM Isaac Guzman, TASH.SOFTWARE APPLICATION TESTER No [facility] 07-23-2019 Because of a physica l, mental, or emotional condition, do you have difficulty doing errands alone such as visiting a physician's office or shopping No 07/23/2019 4:22 PM Isaac Guzman, TASH.SOFTWARE APPLICATION TESTER No [facility] Mental Status Date Assessment Result Facility 02-11-2025 Cognitive function Awake;Alert;A ppropriate;Fol lows Commands [facility] Work Phone: 12-05-2024 Cognitive function Voice/Name [facility] Work Phone: 12-05-2024 Cognitive function Awake;Alert;A ppropriate;Fol lows Commands [facility] Work Phone: 11-20-2024 Cognitive function Voice/Name [facility] Work Phone: 11-07-2024 Cognitive function Voice/Name [facility] Work Phone: 08-16-2023 Cognitive function Voice/Name [facility] Work Phone: 08-15-2023 Cognitive function Level Of Cons ciousness Awake;Alert;Appropriate;Fol lows Commands [facility] Work Phone: 07-23-2019 Because of a physica l, mental, or emotional condition, do you have serious difficulty concentrating, remembering, or making decisions No 07/23/2019 4:22 PM Isaac Guzman APRN.SOFTWARE APPLICATION TESTER No [facility] Clinical Notes 07-19-2019 to 02-11-2025 Note Date & Type Note Facility 02-11-2025 Radiology Diagnostic study note [facility] 02-10-2025 Radiology Diagnostic study note [facility] 02-05-2025 Note Patient sched for fi nancial counseling and CTA/VC appts. I will mail her [employer] packet and make chart. [facility] 01-13-2025 History and physical note Note Date/Time January 13, 2025 7:57am [facility] Medical Records Department [address] [place] [address] History & Physical Exam 01/06/25 0808 MR#: [id number] Acct: [id number] Name: JARED RAYMOND Rep #:[id number] : 1945 79 From: Adrian Flores MD PCP: MARYAM Guerra Status:PRE [facility] Location: [facility] History and Physical Date of [...] Vital Signs: See EMR Intake Visit Reasons: [facility] Manager Body Required: No Is patient in pain?: No Allergies No Known Allergies Allergy (Verified 10/17/24 14:22) Medications: See EMR Ejection fraction %: 70 Have you fallen in the past year?: No [facility] Medical History (Updated 10/17/24 @ 14:43 by Malinda Webster [employer]PER[employer], [employer] SUPERVISOR-C) Encounter for education Pre-op testing Wears dentures [...] 0757 <Electronically signed by Malinda FRANCISCO> CC: [employer]PERVISOR-Jenifer Webster; MARYAM Olson; Dr. Adrian Flores MD~ Signed [facility] Work Phone: 1(677) 541-725506-08-2025 [facility]05-17-2025 Radiology Diagnostic study [facility]05-07-2025 Radiology Diagnostic study note [facility] Imaging Services [address] [place] [address] Biopsy/Inj or Needle Placement MR#: [id number] Acct: [id number] Name: JARED RAYMOND Rep #: [id number] : 1945 M 79 From: Esdras Watts MD PCP: MARYAM Guerra Status: REG CLI Study:Biopsy/Inj or Needle Placement Date of Exam: 12/05/24 Exam# [id number] Ordering Dr: Brenda Araujo MD PROCEDURE: BIOPSY/INJ [...] core biopsy. Pathology results pending. Reading Location: [place] [address] CC: [employer] SUPERVISOR-C Mariela Olson; Dr. Brenda Araujo MD ~ Olericulture Professor: Signed [facility]05-04-2025 Radiology Diagnostic study [facility]04-22-2025 Discharge summary Author Neville Jang [facility] Note Date/Time November 20, 2024 1:2 2pm [facility] Medical Records Department [address] [place] [address] Instructions for Home/Discharge Instructions 11/20/24 1241 MR#: [id number] Acct: [id number] Name: JARED RAYMOND Rep #:[id number] : 1945 79 From: Neville Jang DO [...] Selam Craig NP, NP-C [Med Staff - [facility] Practice Prof] - See Referral Note (Theoffice will call you to confirm an appointment time) Disposition Disposition (needs filled in before D/C Order can be placed): Home, Self Care 11/20/24 1322<Electronically signed by Neville Jang DO>Neville Jang DO CC: [employer]PER[employer]OR-C Mariela Olson; Dr. Kelvin Schrader MD ~ Signed [facility] Work Phone: 1(248) 390-511604-22-2025 Consult note [facility] Medical Records Department [address] [place] [address] Counseling Note - Pharmacy 11/20/24 1342 MR#: [id number] Acct: [id number] Name: JARED RAYMOND Rep #:[id number] : 1945 79 From: Kush Daniel PCP: MARYAM Guerra Status:ADM IN Y Location: [place] [id number] [place] Med Reconciliation Pharmacy Service has performed discharge [...] Signature (if applicable): Date CC: ~ Signed [facility]04-22-2025 Discharge summary [facility] Medical Records Department [address] [place] [address] Instructions for Home/Discharge Instructions 11/20/24 1241 MR#: [id number] Acct: [id number] Name: JARED RAYMOND Rep #:[id number] : 1945 79 From: Neville Jang DO [...] Self Care 11/20/24 1322Mark Svenky DO CC: [employer] SUPERVISOR-C Mariela Olson; Dr. Kelvin Schrader MD ~ Signed [facility]04[facility]22[facility] Consult note Author Keo Burgos [facility] Note Date/Time November 20, 2024 9:5 5am [facility] Medical Records Department [address] [address] Anesthesia Postop Eval II 11/20/24 0952 MR#: [id number] Acct: [id number] Name: JARED RAYMOND Rep #:[id number] : 1945 79 From: Keo Burgos MD PCP: MARYAM Guerra Status:ADM IN Y Race: C Location: [address] Anesthesia Postop Eval I Sum Postop [...] mathew MD> Date _ [facility]: Date CC: ~ Signed [facility] Work Phone: 1(451) 865-107104-22-2025 Consult note [facility] Medical Records Department [address] [place] [address] Anesthesia Postop Eval II 11/20/24 0952 MR#: [id number] Acct: [id number] Name: JARED RAYMOND Rep #:[id number] : 1945 79 From: Keo Burgos MD PCP: MARYAM uGerra Status:ADM IN Y Race: C Location: [facility] -1 Anesthesia Postop Eval I Sum [...] Keo Vela Signature: Date CC: ~ Signed [facility]04-22-2025 Procedure note [facility] Medical Records Department [address] [place] [address] Colonoscopy Report MR#: [id number] Acct: [id number] Name: JARED RAYMOND Rep #:[id number] : 1945 79 From: Ari Silvestre DO [...] three hemostatic clips were successfully placed. 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 There was no bleeding at the end [...] the colonic anastomosis. Clips were placed. 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 - The examined portion of the ileum was normal. - No specimens collected. Recommendation: - [facility]. - Resume previous diet. - Continue present medications. - Repeat colonoscopy in 1 year to assess disease activity. Procedure Code(s): --- Professional --- 35465, Colonoscopy, flexible; with control of bleeding, any method 04478, 59, Colonoscopy, flexible; with directed submucosal injection(s), any substance CPT copyright 2021 [employer]. All rights reserved. The codes documented in this report are preliminary and upon cdl program coordinator review may be revised to meet current compliance requirements. Ari Silvestre DO 11/20/2024 7:56:55 AM This report has been signed electronically. Number of Addenda: 0 Note Initiated On: 11/19/2024 1:03 PM 11/20/24 0757 Date _ Ari Silvestre DO Cosigner Signature: Date (if indicated) CC: MARYAM Olson; Ari Silvestre DO ~ Date Dictated: 11/19/24 1303 Date Transcribed: Olericulture Professor: RF Signed [facility]04-22-2025 Procedure note [facility] Medical Records Department [address] [place] [address] Operative Report - CC Letter MR#: [id number] Acct: [id number] Name: JARED RAYMOND Rep #:[id number] : 1945 79 From: Ari Silvestre DO [...] the colonic anastomosis. Clips were placed. 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 - The examined portion of the ileum [...] ~ Date Dictated: 11/19/24 1303 Date Transcribed: Olericulture Professor: RF Signed [facility]04-21-2025 Progress note Author Neville Jang [facility] Note Date/Time November 19, 2024 6:2 0pm [facility] Medical Records Department [address] [place] [address] Progress Note - Hospitalist 11/19/241815 MR#: [id number] Acct: [id number] Name: SEGUNDOJARED L Rep #:[id number] : 1945 79 From: Neville Jang DO PCP: Mariela Olson NP-C Status:ADM IN Location: [facility] [id number] Reason for Visit Reason for Visit: Diagnoses [...] 73.3 H, Lymph % (Auto) 14.2 L, Iron % (Auto) 10.0, Eos % (Auto) 1.9, [...] 35 minutes Charges/Coding Visit Charges Inpatient E&M: 97689 Subs Hosp L2 11/19/24 1820 <Electronically signed by Neville Jang DO> Cosigner Signature (if applicable): CC: ~ Signed [facility] Work Phone: 1(847) 751-328104-21-2025 Progress note [facility] Medical Records Department [address] [place] [address] Progress Note - Hospitalist 11/19/241815 MR#: [id number] Acct: [id number] Name: JARED RAYMOND Rep #:[id number] : 1945 79 From: Neville Jang DO PCP: MARYAM Guerra Status:ADM IN Location: [place] [address] Reason for Visit Reason for Visit: Diagnoses [...] 73.3 H, Lymph % (Auto) 14.2 L, Iron % (Auto) 10.0, Eos % (Auto) 1.9, [...] 35 minutes Charges/Coding Visit Charges Inpatient E&M: 69682 Subs Hosp L2 11/19/24 1820 Cosigner Signature (if applicable): CC: ~ Signed [facility]04-21-2025 Consult note Author Guerrero Miller [facility] Note Date/Time November 19, 2024 2:0 5pm [facility] Medical Records Department [address] [place] [address] Anesthesia Postop Eval I 11/19/24 1402 MR#: [id number] Acct: [id number] Name: SEGUNDOJARED Kaitlin Rep #:[id number] : 1945 79 From: Guerrero Miller PCP: MARYAM Guerra Status:ADM IN Y Race: C Location: [place] [address] Anesthesia: Postop Eval I Current Vital Signs [...] Guerrero Vela Signature: Date CC: ~ Signed [facility] Work Phone: 1(722) 309-163304-21-2025 Consult note Author Ari Friend [facility] Note Date/Time November 19, 2024 12: 58pm [facility] Medical Records Department [address] [place] [address] Consultation - GI 11/19/24 1256 MR#: [id number] Acct: [id number] Name: JARED RAYMOND Rep #:[id number] : 1945 79 From: Ari Silvestre DO PCP: MARYAM Guerra Status:ADM [facility] Consult Data Date of Consult: 11/19/24 [...] presents for evaluation. He originally presented to [facility] ED on 04/11/2024 with c/o [...] the possible use of ivermectin for treatment. [facility] Medical History Diverticulosis Mediastinal lymphadenopathy Colon cancer [...] 73.3 H, Lymph % (Auto) 14.2 L, Iron % (Auto) 10.0, Eos % (Auto) 1.9, [...] undergo colonoscopy. Charges/Coding Visit Charges Inpatient E&M: 40121 Init Hosp L3 11/19/24 1258 <Electronically signed by Ari Friend DO> Garretter Signature (if applicable): CC: [employer] SUPERVISOR-C Mariela Olson; Dr. Kelvin Schrader MD~ Signed [facility] Work Phone: 1(899) 995-588904-21-2025 Consult note [facility] Medical Records Department [address] [place] [address] Anesthesia Postop Eval I 11/19/24 1402 MR#: [id number] Acct: [id number] Name: JARED RAYMOND Rep #:[id number] : 1945 79 From: Guerrero Miller PCP: MARYAM Guerra Status:ADM IN Y Race: C Location: [place] [address] Anesthesia: Postop Eval I Current Vital Signs [...] Guerrero Vela Signature: Date CC: ~ Signed [facility]04-21-2025 Consult note Author Steven Ann [facility] Note Date/Time November 19, 2024 12: 03pm [facility] Medical Records Department [address] [place] [address] Pre-Anesthesia Evaluation 11/19/24 1202 MR#: [id number] Acct: [id number] Name: JARED RAYMOND Rep #:[id number] : 1945 79 From: Steven Ann MD PCP: MARYAM Guerra Status:ADM IN Y Race: C Location: [place] [address] ASA Classification* ASA Classification ASA Classification: 3 [...] Procedure(s): colonoscopy Anesthesia History Anesthesia History - counter tacker: Anesthesia History - counter tacker Hx Hospitalization Yes: 06/09/24 BIOPSY OF LIVER [...] take am of surgery PONV PONV - counter tacker: PONV - counter tacker Female HX of Motion Sickness HX of N/V After Surgery Non-Smoker Duration of Surgery greater than 60 minutes Number of Risk Factors PONV Score Height & Weight Height & Weight: Anesthesia: Height & Weight Height 5 ft 7.5 in 11/19/24 08:57 Weight: 68.946 kg 11/19/24 08:57 Body Mass Index (BMI) 23.4 11/19/24 08:57 Respiratory Assessment Respiratory Assessment - counter tacker: Respiratory Tract Infection Hx - counter tacker Hx Respiratory Tract Infection No 11/18/24 21:04 STOP Sleep Apnea STOP Sleep Apnea - counter tacker: STOP Sleep Apnea - counter tacker Hx Hypertension Yes 11/18/24 15:46 Hx Sleep [...] Tobacco Use History Tobacco Use History - counter tacker: Tobacco Use History - counter tacker Tobacco Use Cigarettes 01/25/23 14:01 Smoking Status Former smoker 11/18/24 17:39 Hx Tobacco Use Yes: Cigar 11/18/24 15:46 Years Smoking Packs Smoked per Day Smoking Cessation Date was Yes - quit smoking within 15 11/18/24 15:46 within the last 15 years years Hx Smoking Cessation Date 04/01/23 11/18/24 15:46 Hx Smoking Cessation Yes 11/18/24 15:46 Counseling Hematologic Medial History Hematologic Hx - counter tacker: 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 Hx of Blood Transfusion Yes 11/18/24 15:46 [...] confused, unrespo /Reproduction History /Reproductive History - counter tacker: /Reproductive Hx- counter tacker Hx Now No 11/18/24 21:04 Gestational Age [...] MD Cosigner Signature: Date CC: ~ Signed [facility] Work Phone: 1(139) 593-697604-21-2025 Consult note [facility] Medical Records Department [address] [place] [address] Consultation - GI 11/19/24 1256 MR#: [id number] Acct: [id number] Name: JARED RAYMOND Rep #:[id number] : 1945 79 From: Ari Friend DO PCP: Mariela Olson NP-C Status:ADM IN Location: [facility] CC010-8 HPI Consult Data Date of Consult: 11/19/24 [...] presents for evaluation. He originally presented to [facility] ED on 04/11/2024 with c/o [...] the possible use of ivermectin for treatment. [facility] Medical History Diverticulosis Mediastinal lymphadenopathy Colon cancer [...] 73.3 H, Lymph % (Auto) 14.2 L, Iron % (Auto) 10.0, Eos % (Auto) 1.9, [...] undergo colonoscopy. Charges/Coding Visit Charges Inpatient E&M: 81813 Init Hosp L3 11/19/24 1258 Cosigner Signature (if applicable): CC: MARYAM Olson; Dr. Kelvin Schrader MD~ Signed [facility]04-21-2025 Consult note [facility] Medical Records Department [address] [place] [address] Pre-Anesthesia Evaluation 11/19/24 1202 MR#: [id number] Acct: [id number] Name: JARED RAYMOND Rep #:[id number] : 1945 79 From: Steven Ann MD PCP: Mariela Olson, [employer] SUPERVISOR-C Status:ADM IN Y Race: C Location: [place] [address] -1 ASA Classification* ASA Classification ASA Classification: [...] Procedure(s): colonoscopy Anesthesia History Anesthesia History - counter tacker: Anesthesia History - counter tacker Hx Hospitalization Yes: 06/09/24 BIOPSY OF LIVER [...] take am of surgery PONV PONV - counter tacker: PONV - counter tacker Female HX of Motion Sickness HX of N/V After Surgery Non-Smoker Duration of Surgery greater than 60 minutes Number of Risk Factors PONV Score Height & Weight Height & Weight: Anesthesia: Height & Weight Height 5 ft 7.5 in 11/19/24 08:57 Weight: 68.946 kg 11/19/24 08:57 Body Mass Index (BMI) 23.4 11/19/24 08:57 Respiratory Assessment Respiratory Assessment - counter tacker: Respiratory Tract Infection Hx - counter tacker Hx Respiratory Tract Infection No 11/18/24 21:04 STOP Sleep Apnea STOP Sleep Apnea - counter tacker: STOP Sleep Apnea - counter tacker Hx Hypertension Yes 11/18/24 15:46 Hx Sleep [...] Tobacco Use History Tobacco Use History - counter tacker: Tobacco Use History - counter tacker Tobacco Use Cigarettes 01/25/23 14:01 Smoking Status Former smoker 11/18/24 17:39 Hx Tobacco Use Yes: Cigar 11/18/24 15:46 Years Smoking Packs Smoked per Day Smoking Cessation Date was Yes - quit smoking within 15 11/18/24 15:46 within the last 15 years years Hx Smoking Cessation Date 04/01/23 11/18/24 15:46 Hx Smoking Cessation Yes 11/18/24 15:46 Counseling Hematologic Medial History Hematologic Hx - counter tacker: 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 Hx of Blood Transfusion Yes 11/18/24 15:46 [...] confused, unrespo /Reproduction History /Reproductive History - counter tacker: /Reproductive Hx- counter tacker Hx Now No 11/18/24 21:04 Gestational Age [...] MD Cosigner Signature: Date CC: ~ Signed [facility]04-20-2025 History and physical note Author Kelvin Schrader [facility] Note Date/Time November 18, 2024 4:0 6pm [facility] Medical Records Department [address] [place] [address] H&P Exam - Hospitalist 11/18/24 1335 MR#: [id number] Acct: [id number] Name: JARED RAYMOND Rep #:[id number] : 1945 79 From: Kelvin rojas MD PCP: ABDIAS GuerraC Status:ADM IN Location: [facility] XH518-0 HPI - General General Date of Admission: [...] with the possibility of proceeding with chemotherapy. [facility] Medical History Diverticulosis Mediastinal lymphadenopathy Colon cancer [...] 71.9 H, Lymph % (Auto) 14.4 L, Iron % (Auto) 11.2 H, Eos % (Auto) [...] to the large mesenteric mass. Reading Location: [facility] Assessment & Plan Assessment/Plan (1) GI [...] Multi Select Codes Visit Charges Visit Charges: 05184 Init Hosp L2 Hospitalists' Procedures Procedures: 18629 Advncd Care Plan 30 Min 11/18/24 1606 <Electronically signed by Kelvin Schrader MD> Cosigner Signature (if applicable): CC: MARYAM Olson; Dr. Kelvin Schrader MD~ Signed [facility] Work Phone: 1(237) 564-315404-20-2025 Discharge summary Author Radha Damon [facility] Note Date/Time November 18, 2024 2:5 3pm [facility] Medical Records Department [address] [place] [address] Emergency Department Summary 11/18/24 MR#: [id number] Acct: [id number] Name: JARED RAYMOND Rep #:[id number] : 1945 79 From: Radha [place] PCP: MARYAM Guerra Status:ADM IN Location: MS3 CF175-9 HPI <ONDINA Govea - Last Filed: 11/18/24 [...] He denies any fevers, chills, or vomiting. [facility] <ONDINA Govea - Last Filed: 11/18/24 14:05> [facility] Medical History Diverticulosis Mediastinal lymphadenopathy Colon cancer [...] <ONDINA Govea - Last Filed: 11/18/24 14:05> [facility] Narrative Medical decision making narrative: Patient presenting [...] 71.9 H Lymph % (Auto) 14.4 L Iron % (Auto) 11.2 H Eos % (Auto) [...] to the large mesenteric mass. Reading Location: [id number] <Dr. Lazaro Sharp MD - Last Filed: 11/18/24 14:53> [facility] MDM Narrative Medical decision making narrative: [...] 71.9 H Lymph % (Auto) 14.4 L Iron % (Auto) 11.2 H Eos % (Auto) [...] to the large mesenteric mass. Reading Location: [facility] CT of the abdomen pelvis was [...] of hypertension Disposition Disposition: Acute Care Hospital [facility] What to do if you have Problems For any increased pain, shortness of breath, bleeding, nausea or vomiting, chest pain, or any unexpected problems, contact your Primary Care Provider. Call [facility] ([phone]) or report to the closest Emergency Room. Call 911 if necessary. 11/18/24 1405 <Electronically signed by Radha [place]> Cosigner Signature (if applicable): 11/18/24 1453 <Electronically signed by Lazaro Sharp MD> CC: CHRISTEL-C Mariela Olson ~ Signed [facility] Work Phone: 1(875) 879-604204-20-2025 History and physical note [facility] Medical Records Department [address] [place] [address] H&P Exam - Hospitalist 11/18/24 1335 MR#: [id number] Acct: [id number] Name: JARED RAYMOND Rep #:[id number] : 1945 79 From: Kelvin rojas MD PCP: MARYAM Guerra Status:ADM IN Location: [place] [address]-1 HPI - General General Date of Admission: [...] with the possibility of proceeding with chemotherapy. [facility] Medical History Diverticulosis Mediastinal lymphadenopathy Colon cancer [...] 71.9 H, Lymph % (Auto) 14.4 L, Iron % (Auto) 11.2 H, Eos % (Auto) [...] to the large mesenteric mass. Reading Location: [facility] Assessment & Plan Assessment/Plan (1) GI [...] Multi Select Codes Visit Charges Visit Charges: 13174 Init Hosp L2 Hospitalists' Procedures Procedures: 44650 Advncd Care Plan 30 Min 11/18/24 1606 Cosigner Signature (if applicable): CC: MARYAM Olson; Dr. Kelvin Schrader MD~ Signed [facility]04-20-2025 Discharge summary [facility] Medical Records Department [address] [place] [address] Emergency Department Summary 11/18/24 MR#: [id number] Acct: [id number] Name: JARED RAYMOND Rep #:[id number] : 1945 79 From: Radha NJ PCP: MARYAM Guerra Status:ADM IN Location: [place] [address] HPI HPI - GI History of Present [...] denies a ny fevers, chills, or vomiting. [facility] Medical History Diverticulosis Mediastinal lymphadenopathy Colon [...] 71.9 H Lymph % (Auto) 14.4 L Iron % (Auto) 11.2 H Eos % (Auto) [...] to the large mesenteric mass. Reading Location: [id number] MDM MDM Narrative Medical decision making narrative: [...] 71.9 H Lymph % (Auto) 14.4 L Iron % (Auto) 11.2 H Eos % (Auto) [...] to the large mesenteric mass. Reading Location: [id number] CT of the abdomen pelvis was reviewed [...] of hypertension Disposition Disposition: Acute Care Hospital [facility] What to do if you have Problems For any increased pain, shortness of breath, bleeding, nausea or vomiting, chest pain, or any unexpected problems, contact your Primary Care Provider. Call [facility] ([phone]) or report to the closest Emergency Room. Call 911 if necessary. 11/18/24 1405 Cosigner Signature (if applicable): 11/18/24 1453 CC: MARYAM Olson ~ Signed [facility]04-20-2025 Discharge summary Author Radha Damon [facility] Note Date/Time November 18, 2024 2:5 3pm [facility] Medical Records Department [address] [place] [address] Emergency Department Summary 11/18/24 MR#: [id number] Acct: [id number] Name: JARED RAYMOND Rep #:[id number] : 1945 79 From: Radha [place] PCP: MARYAM Guerra Status:ADM IN Location: [place] [address] HPI <ONDINA Govea - Last Filed: 11/18/24 [...] He denies any fevers, chills, or vomiting. [facility] <ONDINA Govea - Last Filed: 11/18/24 14:05> [...] <ONDINA Govea - Last Filed: 11/18/24 14:05> [facility] MDM Narrative Medical decision making narrative: [...] 71.9 H Lymph % (Auto) 14.4 L Iron % (Auto) 11.2 H Eos % (Auto) [...] to the large mesenteric mass. Reading Location: [id number] <Dr. Lazaro Sharp MD - Last Filed: 11/18/24 14:53> [facility] MDM Narrative Medical decision making narrative: [...] 71.9 H Lymph % (Auto) 14.4 L Iron % (Auto) 11.2 H Eos % (Auto) [...] to the large mesenteric mass. Reading Location: [facility] CT of the abdomen pelvis was [...] of hypertension Disposition Disposition: Acute Care Hospital [facility] What to do if you have Problems For any increased pain, shortness of breath, bleeding, nausea or vomiting, chest pain, or any unexpected problems, contact your Primary Care Provider. Call [facility] ([phone]) or report to the closest Emergency Room. Call 911 if necessary. 11/18/24 1405 <Electronically signed by Radha [place]> Cosigner Signature (if applicable): 11/18/24 1453 <Electronically signed by Lazaro Sharp MD> CC: CHRISTEL-C Mariela Olson ~ Signed [facility] Work Phone: 1(276) 488-519604-20-2025 Radiology Diagnostic study note [facility] Imaging Services [address] [place], [place] [address] Abdomen/Pelvis W IV Cont ONLY MR#: [id number] Acct: [id number] Name: JARED RAYMOND Rep #: [id number] : 1945 M 79 From: Vanessa Rosado MD PCP: Mariela Shahram, [employer] SUPERVISOR-C Status: REG ER Study:Abdomen/Pelvis W IV Cont ONLY Date of E xam: 11/18/24 Exam# [id number] Ordering Dr: Radha Sharp MD PROCEDURE: ABDOMEN/PELVIS [...] to the large mesenteric mass. Reading Location: [facility] CC: MARYAM Olson; Dr. Lazaro Sharp MD ~ Olericulture Professor: Signed [facility]04-09-2025 Discharge summary [facility] Medical Records Department [address] [place] [address] Discharge Summary 11/07/24 1655 MR#: [id number] Acct: [id number] Name: JARED RAYMOND Rep #:[id number] : 1945 79 From: Stevie Harrington DO PCP: MARYAM Guerra Status:ADM IN Location: [place] [address] Providers Date of Admission: 11/06/24 Primary Care Physician: MARYAM Guerra Consultations 11/06/24 03:28 Consult: Gastroenterology Routine Consulting Provider: [facility] Reason for Consult: LGIB with BRB[facility]; [...] 70.4 H, Lymph % (Auto) 14.8 L, Iron % (Auto) 12.5 H, Eos % (Auto) [...] Self Care Charges/Coding Visit Charges Inpatient E&M: 93374 Disch Hosp >30min 11/07/24 1707 Cosigner Signature (if applicable): CC: MARYAM Olson; Dr. Stevie Harrington DO~ Signed [facility]04[facility]09[facility] Progress note Author Stevie Harrington [facility] Note Date/Time November 07, 2024 12:2 7pm [facility] Medical Records Department [address] [place] [address] Progress Note - Hospitalist 11/07/24 0727 MR#: [id number] Acct: [id number] Name: JARED RAYMOND Rep #:[id number] : 1945 79 From: Stevie Harrington DO PCP: MARYAM Guerra Status:ADM IN Location: [place] [address] Reason for Visit Reason for Visit: Diagnoses [...] 78.1 H, Lymph % (Auto) 9.1 L, Iron % (Auto) 11.9 H, Eos % (Auto) [...] 70.4 H, Lymph % (Auto) 14.8 L, Iron % (Auto) 12.5 H, Eos % (Auto) [...] prophylaxis: SCDs. Charges/Coding Visit Charges Inpatient E&M: 97206 Subs Hosp L2 11/07/24 1222 <Electronically signed by Stevie Harrington DO> Cosigner Signature (if applicable): CC: ~ Signed [facility] Work Phone: 1(419) 762-157804-09-2025 Progress note [facility] Medical Records Department [address] [place] [address] Progress Note - Hospitalist 11/07/24726 MR#: [id number] Acct: [id number] Name: JARED RAYMOND Rep #:[id number] : 1945 79 From: Stevie Harrington DO PCP: MARYAM Guerra Status:ADM IN Location: [place] [address]- Reason for Visit Reason for Visit: Diagnoses [...] 78.1 H, Lymph % (Auto) 9.1 L, Iron % (Auto) 11.9 H, Eos % (Auto) [...] 70.4 H, Lymph % (Auto) 14.8 L, Iron % (Auto) 12.5 H, Eos % (Auto) [...] prophylaxis: SCDs. Charges/Coding Visit Charges Inpatient E&M: 52573 Subs Hosp L2 11/07/24 1227 Cosigner Signature (if applicable): CC: ~ Signed [facility]04-08-2025 Consult note Author [facility] Note Date/Time November 06, 2024 8:40 pm [facility] Medical Records Department [address] [place] [address] Anesthesia Postop Eval II 11/06/242038 MR#: [id number] Acct: [id number] Name: JARED RAYMOND Rep #:[id number] : 1945 79 From: Keo Burgos MD PCP: MARYAM Guerra Status:ADM IN Y Race: C Location: [place] [address] 3-1 Anesthesia Postop Eval I Sum Postop [...] MD Cosigner Signature: Date CC: ~ Signed [facility] Work Phone: 1(668) 322-394104-08-2025 Consult note Author [facility] Note Date/Time November 06, 2024 8:00 pm [facility] Medical Records Department [address] [place] [address] Anesthesia Postop Eval I 11/06/241948 MR#: [id number] Acct: [id number] Name: SEGUNDOJARED Kaitlin Rep #:[id number] : 1945 79 From: Keo Burgos MD PCP: MARYAM Guerra Status:ADM IN Y Race: C Location: [address] Anesthesia: Postop Eval I Current Vital [...] MD Cosigner Signature: Date CC: ~ Signed [facility] Work Phone: 1(320) 787-714904-08-2025 Consult note Author [facility] Note Date/Time November 06, 2024 7:07 pm [facility] Medical Records Department [address] [place] [address] Pre-Anesthesia Evaluation 11/06/24 1859 MR#: [id number] Acct: [id number] Name: JARED RAYMOND Rep #:[id number] : 1945 79 From: Keo Burgos MD PCP: MARYAM Guerra Status:ADM IN Y Race: C Location: [place] [address] 3 ASA Classification* ASA Classification ASA Classification: [...] Flexible sigmoidoscopy Anesthesia History Anesthesia History - counter tacker: Anesthesia History - counter tacker Hx Hospitalization Yes: 06/09/24 BIOPSY OF LIVER [...] sips of water?: Yes PONV PONV - counter tacker: PONV - counter tacker Female HX of Motion Sickness HX of N/V After Surgery Non-Smoker Duration of Surgery greater than 60 minutes Number of Risk Factors PONV Score Height & Weight Height & Weight: Anesthesia: Height & Weight Height 5 ft 7 in 11/06/24 09:29 Weight: 72 kg 11/06/24 09:29 Body Mass Index (BMI) 24.8 11/06/24 05:23 Respiratory Assessment Respiratory Assessment - counter tacker: Respiratory Tract Infection Hx - counter tacker Hx Respiratory Tract Infection Yes: Patient is recovering 06/22/24 12:11 from a cold/sinus congestion STOP Sleep Apnea STOP Sleep Apnea - counter tacker: STOP Sleep Apnea - counter tacker Hx Hypertension Yes 11/06/24 13:19 Hx Sleep [...] Tobacco Use History Tobacco Use History - counter tacker: Tobacco Use History - counter tacker Tobacco Use Cigarettes 01/25/23 14:01 Smoking Status Former smoker 11/06/24 13:51 Hx Tobacco Use Yes: Cigar 11/06/24 03:38 Years Smoking Packs Smoked per Day Smoking Cessation Date was Yes - quit smoking within 15 11/06/24 03:38 within the last 15 years years Hx Smoking Cessation Date 04/01/23 11/06/24 03:38 Hx Smoking Cessation Yes 11/06/24 03:38 Counseling Hematologic Medial History Hematologic Hx - counter tacker: 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 Hx of Blood Transfusion Yes 11/06/24 03:38 [...] confused, unrespo /Reproduction History /Reproductive History - counter tacker: /Reproductive Hx- counter tacker Hx Now Gestational Age (in weeks): EDC: [...] MD Cosigner Signature: Date CC: ~ Signed [facility] Work Phone: 1(165) 344-355104-08-2025 Consult note Author Ari Friend [facility] Note Date/Time November 06, 2024 6:59 pm [facility] Medical Records Department [address] [facility] [place] [address] Consultation - GI 11/06/24 1854 MR#: [id number] Acct: [id number] Name: SEGUNDOJARED L Rep #:[id number] : 1945 79 From: Ari Silvestre DO PCP: MARYAM Guerra Status:ADM IN Location: [place] [address] HPI Consult Data Date of Consult: 11/06/24 [...] presents for evaluation. He originally presented to [facility] ED on 04/11/2024 with c/o [...] positive, MSI stable. Pathologic staging pT4 pN2b. [facility] Medical History Encounter for education Pre-op testing [...] % (Auto) Cancelled, Lymph % (Auto) Cancelled, Iron % (Auto) Cancelled, Eos % (Auto) Cancelled, [...] Drop Cells Cancelled, Ovalocytes Cancelled, Stomatocytes Cancelled, [place] Bodies Cancelled, [place] Cells Cancelled, Bite Cells Cancelled, Crenated Cell [...] 76.8 H, Lymph % (Auto) 12.9 L, Iron % (Auto) 8.9, Eos % (Auto) 0.6, [...] 74.5 H, Lymph % (Auto) 13.7 L, Iron % (Auto) 9.8, Eos % (Auto) 1.4, [...] 78.1 H, Lymph % (Auto) 9.1 L, Iron % (Auto) 11.9 H, Eos % (Auto) [...] stable findings as described above. Reading [facility] Assessment & Plan Assessment/Plan (1) [...] flexible sigmoidoscopy. Charges/Coding Visit Charges Inpatient E&M: 61616 Init Hosp L3 11/06/24 1859 <Electronically signed by Ari Silvestre DO> Cosigner Signature (if applicable): CC: MARYAM Olson~ Signed [facility] Work Phone: 1(326) 802-589404-08-2025 Consult note [facility] Medical Records Department [address] [place] [address] Anesthesia Postop Eval II 11/06/242038 MR#: [id number] Acct: [id number] Name: JARED RAYMOND Rep #:[id number] : 1945 79 From: Keo Burgos MD PCP: MARYAM Guerra Status:ADM IN Y Race: C Location: [place] [address] 3-1 Anesthesia Postop Eval I Sum Postop [...] MD Cosigner Signature: Date CC: ~ Signed [facility]04-08-2025 Consult note [facility] Medical Records Department [address] [place] [address] Anesthesia Postop Eval I 11/06/241948 MR#: [id number] Acct: [id number] Name: JARED RAYMOND Rep #:[id number] : 1945 79 From: Keo Burgos MD PCP: MARYAM Guerra Status:ADM IN Y Race: C Location: [place] [address] Anesthesia: Postop Eval I Current Vital Signs [...] Keo Vela Signature: Date CC: ~ Signed [facility]04-08-2025 Procedure note [facility] Medical Records Department [address] [place] [address] Colonoscopy Report MR#: [id number] Acct: [id number] Name: JARED RAYMOND Rep #:[id number] : 1945 79 From: Ari Silvestre DO [...] digital rectal examinations were normal. Hematin (altered blood/cwaelw-lmufgs-cxhr material) was found in the entire colon. There was evidence of a prior end-to-side ileo-colonic anastomosis in the ascending colon. This was patent and was characterized by ulceration and an intact staple line. The anastomosis was traversed. To stop active bleeding, one hemostatic clip was successfully placed. 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 There was no bleeding at the end [...] was poor. Procedure Code(s): --- Professional --- 65026, Colonoscopy, flexible; with control of bleeding, any method CPT copyright 2021 [employer]. All rights reserved. The codes documented in this report are preliminary and upon cdl program coordinator review may be revised to meet current compliance requirements. Ari Silvestre DO 11/06/2024 7:48:14 PM This report has been signed electronically. Number of Addenda: 0 Note Initiated On: 11/06/2024 6:51 PM 11/06/241947 Date _ Ari Phelpsignbrant Signature: Date (if indicated) CC: [employer] SUPERVISOR-C Mariela Olson; Ari DO Nirmala ~ Date Dictated: 11/06/241850 Date Transcribed: Olericulture Professor: RF Signed [facility]04-08-2025 Consult note [facility] Medical Records Department [address] [place] [address] Pre-Anesthesia Evaluation 11/06/241858 MR#: [id number] Acct: [id number] Name: JARED RAYMOND Rep #:[id number] : 1945 79 From: Keo Burgos MD PCP: MARYAM Guerra Status:ADM IN Y Race: C Location: [place] [address] 31 ASA Classification* ASA Classification ASA Classification: [...] Flexible sigmoidoscopy Anesthesia History Anesthesia History - counter tacker: Anesthesia History - counter tacker Hx Hospitalization Yes: 06/09/24 BIOPSY OF LIVER [...] sips of water?: Yes PONV PONV - counter tacker: PONV - counter tacker Female HX of Motion Sickness HX of N/V After Surgery Non-Smoker Duration of Surgery greater than 60 minutes Number of Risk Factors PONV Score Height & Weight Height & Weight: Anesthesia: Height & Weight Height 5 ft 7 in 11/06/24 09:29 Weight: 72 kg 11/06/24 09:29 Body Mass Index (BMI) 24.8 11/06/24 05:23 Respiratory Assessment Respiratory Assessment - counter tacker: Respiratory Tract Infection Hx - counter tacker Hx Respiratory Tract Infection Yes: Patient is recovering 06/22/24 12:11 from a cold/sinus congestion STOP Sleep Apnea STOP Sleep Apnea - counter tacker: STOP Sleep Apnea - counter tacker Hx Hypertension Yes 11/06/24 13:19 Hx Sleep [...] Tobacco Use History Tobacco Use History - counter tacker: Tobacco Use History - counter tacker Tobacco Use Cigarettes 01/25/23 14:01 Smoking Status Former smoker 11/06/24 13:51 Hx Tobacco Use Yes: Cigar 11/06/24 03:38 Years Smoking Packs Smoked per Day Smoking Cessation Date was Yes - quit smoking within 15 11/06/24 03:38 within the last 15 years years Hx Smoking Cessation Date 04/01/23 11/06/24 03:38 Hx Smoking Cessation Yes 11/06/24 03:38 Counseling Hematologic Medial History Hematologic Hx - counter tacker: 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 Hx of Blood Transfusion Yes 11/06/24 03:38 [...] confused, unrespo /Reproduction History /Reproductive History - counter tacker: /Reproductive Hx- counter tacker Hx Now Gestational Age (in weeks): EDC: [...] MD Cosigner Signature: Date CC: ~ Signed [facility]04-08-2025 Consult note [facility] Medical Records Department [address] [place] [address] Consultation - GI 11/06/24 1854 MR#: [id number] Acct: [id number] Name: JARED RAYMOND Rep #:[id number] : 1945 79 From: Ari Silvestre DO PCP: MARYAM Guerra Status:ADM IN Location: [place] [address] HPI Consult Data Date of Consult: 11/06/24 [...] presents for evaluation. He originally presented to [facility] ED on 04/11/2024 with c/o [...] positive, MSI stable. Pathologic staging pT4 pN2b. [facility] Medical History Encounter for education Pre-op testing [...] % (Auto) Cancelled, Lymph % (Auto) Cancelled, Iron % (Auto) Cancelled, Eos % (Auto) Cancelled, [...] Drop Cells Cancelled, Ovalocytes Cancelled, Stomatocytes Cancelled, [place] Bodies Cancelled, [place] Cells Cancelled, Bite Cells Cancelled, Crenated Cell [...] 76.8 H, Lymph % (Auto) 12.9 L, Iron % (Auto) 8.9, Eos % (Auto) 0.6, [...] 74.5 H, Lymph % (Auto) 13.7 L, Iron % (Auto) 9.8, Eos % (Auto) 1.4, [...] 78.1 H, Lymph % (Auto) 9.1 L, Iron % (Auto) 11.9 H, Eos % (Auto) [...] stable findings as described above. Reading [facility] Assessment & Plan Assessment/Plan (1) [...] s igmoidoscopy. Charges/Coding Visit Charges Inpatient E&M: 86802 Init Hosp L3 11/06/24 8746 Cosigner Signature (if applicable): CC: MARYAM Olson~ Signed [facility]04-08-2025 Progress note Author Stevie Harrington [facility] Note Date/Time November 06, 2024 2:48 pm [facility] Medical Records Department [address] [place] [address] Progress Note - Hospitalist 11/06/24726 MR#: [id number] Acct: [id number] Name: JARED RAYMOND Rep #:[id number] : 1945 79 From: Stevie Harrington DO PCP: MARYAM Guerra Status:ADM IN Location: [place] [address]- Reason for Visit Reason for Visit: Diagnoses [...] % (Auto) Cancelled, Lymph % (Auto) Cancelled, Iron % (Auto) Cancelled, Eos % (Auto) Cancelled, [...] Drop Cells Cancelled, Ovalocytes Cancelled, Stomatocytes Cancelled, [place] Bodies Cancelled, [place] Cells Cancelled, Bite Cells Cancelled, Crenated Cell [...] 76.8 H, Lymph % (Auto) 12.9 L, Iron % (Auto) 8.9, Eos % (Auto) 0.6, [...] 74.5 H, Lymph % (Auto) 13.7 L, Iron % (Auto) 9.8, Eos % (Auto) 1.4, [...] stable findings as described above. Reading [facility] Physical Exam Const alert and no apparent [...] at bedside. Charges/Coding Visit Charges Inpatient E&M: 43941 Subs Hosp L2 11/06/24 9668 <Electronically signed by Stevie Harrington DO> Cosigner Signature (if applicable): CC: ~ Signed [facility] Work Phone: 1(906) 233-626604-08-2025 Progress note [facility] Medical Records Department [address] [place] [address] Progress Note - Hospitalist 11/06/24726 MR#: [id number] Acct: [id number] Name: JARED RAYMOND Rep #:[id number] : 1945 79 From: Stevie Harrington DO PCP: ABDIAS GuerraC Status:ADM IN Location: [place] [address] Reason for Visit Reason for Visit: Diagnoses [...] % (Auto) Cancelled, Lymph % (Auto) Cancelled, Iron % (Auto) Cancelled, Eos % (Auto) Cancelled, [...] Drop Cells Cancelled, Ovalocytes Cancelled, Stomatocytes Cancelled, [place] Bodies Cancelled, [place] Cells Cancelled, Bite Cells Cancelled, Crenated Cell [...] 76.8 H, Lymph % (Auto) 12.9 L, Iron % (Auto) 8.9, Eos % (Auto) 0.6, [...] 74.5 H, Lymph % (Auto) 13.7 L, Iron % (Auto) 9.8, Eos % (Auto) 1.4, [...] at bedside. Charges/Coding Visit Charges Inpatient E&M: 03585 Subs Hosp L2 11/06/24 6395 Cosigner Signature (if applicable): CC: ~ Signed [facility]04-08-2025 History and physical note Author Darrel Sanders [facility] Note Date/Time November 06, 2024 6:56 am [facility] Medical Records Department [address] [facility] [place] [address] H&P Exam - Hospitalist 11/06/24 0145 MR#: [id number] Acct: [id number] Name: JARED RAYMOND Rep #:[id number] : 1945 79 From: Darrel Qureshi DO PCP: MARYAM Guerra Status:ADM IN Location: [address] 1 HPI - General General Date [...] of syncopal episodes who now returns to [facility] ER complaining of watery diarrhea and [...] is expected to extend beyond 2 midnights. [facility] Medical History (Updated 11/06/24 @ 06:26 by [...] % (Auto) Cancelled, Lymph % (Auto) Cancelled, Iron % (Auto) Cancelled, Eos % (Auto) Cancelled, [...] Drop Cells Cancelled, Ovalocytes Cancelled, Stomatocytes Cancelled, [place] Bodies Cancelled, [place] Cells Cancelled, Bite Cells Cancelled, Crenated Cell [...] 76.8 H, Lymph % (Auto) 12.9 L, Iron % (Auto) 8.9, Eos % (Auto) 0.6, [...] 75 minutes. Charges/Coding Visit Charges Inpatient E&M: 47997 Init Hosp L3 11/06/24 0656 <Electronically signed by Darrel Carpenter DO> Cosigner Signature (if applicable): CC: MARYAM Olson; Dr. Darrel Carpenter DO~ Signed [facility] Work Phone: 1(814) 778-362304-08-2025 Discharge summary Author Harrison [facility] Note Date/Time November 06, 2024 5:46 am [facility] Medical Records Department [address] [place] [address] Emergency Department Summary 11/06/24 MR#: [id number] Acct: [id number] Name: JARED RAYMOND Rep #:[id number] : 1945 79 From: Harrison Linares DO PCP: MARYAM Guerra Status:ADM IN Location: [address] History of Present Illness Chief Complaint: [...] blood per rectum he presents for evaluation. [facility] Medical History (Updated 11/06/24 @ 05:46 by [...] I did discuss the case with his lifestyle coordinator Dr. Silvestre. He recommends that with his [...] H Lymph % (Auto) Cancelled 12.9 L Iron % (Auto) Cancelled 8.9 Eos % (Auto) [...] Drop Cells Cancelled Ovalocytes Cancelled Stomatocytes Cancelled [place] Bodies Cancelled Tani Cells Cancelled Bite Cells [...] Management Discussion w/another healthcare provider: Hospitalist and Metalsmith Helper Discharge Plan Dx/Rx/DC Orders Clinical Impression: GI (gastrointestinal bleed), Benign essential hypertension, Colon cancer, Hyponatremia, Diverticulosis Disposition Disposition: [facility] Discharge Date/Time: 11/06/24 03:21 What to do if you have Problems For any increased pain, shortness of breath, bleeding, nausea or vomiting, chestpain, or any unexpected problems, contact your Primary Care Provider. Call [facility] ([phone]) or report to the closest Emergency Room. Call 911 if necessary. 11/06/24 0546 <Electronically signed by Harrison Linares DO> Cosigner Signature (if applicable): CC: MARYAM Olson ~ Signed [facility] Work Phone: 1(779) 140-945604-08-2025 History and physical note [facility] Medical Records Department [address] [place] [address] H&P Exam - Hospitalist 11/06/24 0145 MR#: [id number] Acct: [id number] Name: JARED RAYMOND Rep #:[id number] : 1945 79 From: Darrel Qureshi DO PCP: MARYAM Guerra Status:ADM IN Location: [facility] [id number]- 1 HPI - General General Date of [...] of syncopal episodes who now returns to [facility] ER complaining of watery diarrhea and [...] is expected to extend beyond 2 midnights. [facility] Medical History (Updated 11/06/24 @ 06:26 by [...] % (Auto) Cancelled, Lymph % (Auto) Cancelled, Iron % (Auto) Cancelled, Eos % (Auto) Cancelled, [...] Drop Cells Cancelled, Ovalocytes Cancelled, Stomatocytes Cancelled, [place] Bodies Cancelled, Tani Cells Cancelled, Bite Cells [...] 76.8 H, Lymph % (Auto) 12.9 L, Iron % (Auto) 8.9, Eos % (Auto) 0.6, [...] 75 minutes. Charges/Coding Visit Charges Inpatient E&M: 62484 Init Hosp 11/06/24 0656 Cosigner Signature (if applicable): CC: COTTON GIN YARD SUPERVISORCatherine Olson; Dr. Darrel Carpenter DO~ Signed [facility]04-08-2025 Discharge summary [facility] Medical Records Department [address] [place] [address] Emergency Department Summary 11/06/24 MR#: [id number] Acct: [id number] Name: JARED RAYMOND Rep #:[id number] : 1945 79 From: Harrison Linares DO PCP: MARYAM Guerra Status:ADM IN Location: [place] [address] 1 HPI History of Present Illness Chief [...] blood per rectum he presents for evaluation. [facility] Medical History (Updated 11/06/24 @ 05:46 by [...] I did discuss the case with his lifestyle coordinator Dr. Friend. He recommends that with his [...] H Lymph % (Auto) Cancelled 12.9 L Iron % (Auto) Cancelled 8.9 Eos % (Auto) [...] Drop Cells Cancelled Ovalocytes Cancelled Stomatocytes Cancelled [place] Bodies Cancelled Tani Cells Cancelled Bite Cells [...] Management Discussion w/another healthcare provider: Hospitalist and Metalsmith Helper Discharge Plan Dx/Rx/DC Orders Clinical Impression: GI (gastrointestinal bleed), Benign essential hypertension, Colon cancer, Hyponatremia, Diverticulosis Disposition Disposition: Acute Care Hospital [facility] Discharge Date/Time: 11/06/24 03:21 What to do if you have Problems For any increased pain, shortness of breath, bleeding, nausea or vomiting, chestpain, or any unexpected problems, contact your Primary Care Provider. Call [facility] ([phone]) or report tothe closest Emergency Room. Call 911 if necessary. 11/06/24 8923 Cosigner Signature (if applicable): CC: MARYAM Olson ~ Signed [facility]04-07-2025 Radiology Diagnostic study note [facility] Imaging Services [address] [place] [address] CTA Abd/Pelvis W/WO Contrast MR#: [id number] Acct: [id number] Name: JARED RAYMOND Rep #: [id number] : 1945 M 79 From: Shakira Ramsey MD PCP: MARYAM Guerra Status: REG ER Study:CTA Abd/Pelvis W/WO Contrast Date of Ex am: 11/05/24 Exam# [id number] Ordering Dr: Erica Linares DO PROCEDURE: CTA [...] mesentery with limited distal opacification. Adrenal glands: Fddd-vxvqtzg-lybl-right adrenal thickening. Kidneys/Ureters: Symmetric bilateral renal enhancement. [...] stable findings as described above. Reading [facility] CC: MARYAM Olson; Harrison Linares DO ~ Olericulture Professor: Signed [facility]04-04-2025 Telephone encounter Note* Telephone Encounter - Filomena Rodrigues - 11/02/2024 2:30 PM EDT Patient and his daughter stopped in to talk to Jolynn Frias. 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 Please call patients daughter Teresa [phone] [facility]04-04-2025 Miscellaneous Notes* Telephone Encounter - Filomena Rodrigues - 11/02/2024 2:30 PM EDT Patient and his daughter stopped in to talk to Jolynn Frias. 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 Please call patients daughter Teresa [phone] [facility] Discharge summary [facility] Medical Records Department [address] [place] [address] Emergency Department Summary 10/24/24 MR#: [id number] Acct: [id number] Name: JARED RAYMOND Rep #:[id number] : 1945 79 From: Jerry Yuen PCP: [...] Oxygen Delivery Method Room Air Room Air [facility] MDM MDM Narrative Medical decision making [...] History obtained from others: none Consults: none [facility] Narrative: The patient was initially hemodynamically [...] Discharge home This note was generated with [employer] dictation software. It may contain incorrectwords, spelling, [...] 77.1 H Lymph % (Auto) 12.7 L Iron % (Auto) 8.4 Eos % (Auto) 1.0 [...] Clarity Clear Urine pH 8.0 Ur Specific Geff 1.010 Urine Protein 15 H Urine Glucose [...] SONOGRAPHIC EVIDENCE OF TESTICULAR TORSION. Reading Location: [facility] Discharge Plan Triage Chief Complaint: Flank [...] MARYAM [Primary Care Provider] - Print Language: Icelandic What to do if you have Problems For any increased pain, shortness of breath, bleeding, nausea or vomiting, chestpain, or any unexpected problems, contact your Primary Care Provider. Call [facility] ([phone]) or report tothe closest Emergency Room. Call 911 if necessary. 10/24/242033 Cosigner Signature (if applicable): CC: MARYAM Olson ~ Signed [facility]03-26-2025 Radiology Diagnostic study note [facility] Imaging Services [address] [place] [address] Testicular with Arterial Flow MR#: [id number] Acct: [id number] Name: JARED RAYMOND Rep #: [id number] : 1945 M 79 From: Vanessa Rosado MD PCP: MARYAM Guerra Status: REG ER Study:Testicular with Arterial Flow Date of E xam: 10/24/24 Exam# [id number] Ordering Dr: Robby Hightower DO PROCEDURE: TESTICULAR [...] SONOGRAPHIC EVIDENCE OF TESTICULAR TORSION. Reading Location: [id number] CC: MARYAM Olson; Dr. Jerry Hightower, ~ Olericulture Professor: Signed [facility]03-26-2025 Radiology Diagnostic study note [facility] Imaging Services [address] [place], [place] [address] Abdomen/Pelvis W IV Cont ONLY MR#: [id number] Acct: [id number] Name: JARED RAYMOND Rep #: [id number] : 1945 M 79 From: Vanessa Rosado MD PCP: MARYAM Guerra Status: REG CLI Study:Abdomen/Pelvis W IV Cont ONLY Date of E xam: 10/24/24 Exam# [id number] Ordering Dr: Thang Hernandez MD PROCEDURE: ABDOMEN/PELVIS [...] excluded. Attentionon follow-up imaging recommended. Reading Location: [facility] CC: MARYAM Olson; Dr. Papi Hernandez MD ~ Olericulture Professor: Signed [facility]03-26-2025 Discharge summary Author Jerry Hightower [facility] Note Date/Time October 24, 2024 8:3 4pm [facility] Medical Records Department [address] [place] [address] Emergency Department Summary 10/24/24 MR#: [id number] Acct: [id number] Name: JARED RAYMOND Rep #:[id number] : 1945 79 From: Jerry Yuen PCP: Mariela Olson COTTON GIN YARD SUPERVISOR-C Status:REG ER Location: ED HPI History of Present Illness Chief Complaint: Flank Pain PFSH [facility] Medical History (Updated 10/24/24 @ 19:59 by [...] Oxygen Delivery Method Room Air Room Air [facility] Narrative Medical decision making narrative: HISTORY OF [...] reviewed, Vital signs reviewed Constitutional: please see [facility] HENT: MMM Eyes: Pupils equal round [...] History obtained from others: none Consults: none [facility] Narrative: The patient was initially hemodynamically [...] Discharge home This note was generated with Plehn Analyticsation software. It may contain incorrectwords, spelling, and [...] 77.1 H Lymph % (Auto) 12.7 L Iron % (Auto) 8.4 Eos % (Auto) 1.0 [...] Clarity Clear Urine pH 8.0 Ur Specific Geff 1.010 Urine Protein 15 H Urine Glucose [...] SONOGRAPHIC EVIDENCE OF TESTICULAR TORSION. Reading Location: [facility] Discharge Plan Triage Chief Complaint: Flank [...] Care Provider: Mariela Olson Referrals: Mariela Olson, COT[employer] GIN YARD SUPERVISOR-C [Primary Care Provider] - Print Language: Icelandic What to do if you have Problems For any increased pain, shortness of breath, bleeding, nausea or vomiting, chestpain, or any unexpected problems, contact your Primary Care Provider. Call [facility] ([phone]) or report to the closest Emergency Room. Call 911 if necessary. 10/24/242033 <Electronically signed by Jerry Hightower DO> Cosigner Signature (if applicable): CC: COTTON GIN YARD SUPERVISORCatherine Olson ~ Signed [facility] Work Phone: 1(893) 315-272903-19-2025 Evaluation note* Diagnosis Onset Date Resolution Status [...] metastasis present chronic December 04, 2024 11:24am [facility] Work Phone: 1(956) 469-710703-19-2025 Evaluation note* Diagnosis Onset Date Resolution Status [...] node metastasis present chronic January 09 3:16pm [facility] Work Phone: 1(567) 113-261702-07-2025 History of Present illness Narrative* Encounter Date [...] seldom monitors, usually can tell by his [employer] puzzles. (+) eye vitamin PO Vision seems [...] Referred by Julissa [facility] O.D. at [facility]. Wears OTC readers. Straight lines appear wavy in OS. [facility] Work Phone: 1(510) 940-246501-08-2025 Evaluation note* Diagnosis Onset Date Resolution Status [...] 2:56am GI bleed acute November 18 12:59pm [facility] Work Phone: 1(291) 464-961501-08-2025 Evaluation note* Diagnosis Onset Date Resolution Status [...] 2024 12:59pm Rectal bleeding acute October 12:59pm [facility] Work Phone: 1(792) 706-418001-08-2025 Evaluation note* Diagnosis Onset Date Resolution Status [...] metastasis present chronic December 04, 2024 11:24am [facility] Work Phone: 1(441) 317-596312-18-2024 Evaluation note* Diagnosis Onset Date Resolution Status [...] lymph node chronic November 06, 2024 2:56am [facility] Work Phone: 1(386) 518-559212-18-2024 Evaluation note* Diagnosis Onset Date Resolution Status [...] lymph node chronic November 06, 2024 2:56am [facility] Work Phone: 1(391) 914-605112-13-2024 Instructions* Date Instruction Additional Infor mation 7-8 [...] hemorrhage, left eye [facility] Work Phone: 1(486) 402-911112-04-2024 Evaluation note* Diagnosis Onset Date Resolution Status [...] 19, 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 October 17, 2024 2:04pm [facility] Work Phone: 1(678) 148-456411-22-2024 [facility]11-18-2024 [facility]-10-2024 [facility] 05-01-2024 [facility]09-27-2024 [facility]09-15-2024 [facility]07-25-2022 Miscellaneous Notes * Telephone Encounter - Michela Saucedo - 02/22/2022 3:14 PM EDT Patient arrived at the [facility] in [place], [place] requesting an appointment to become established with a new PCP in this region. The patient reports having similar symptoms in the right upper extremity that he experienced prior to his quintuple bypass surgery. He was provided the phone number and name of the cardiac surgeon and was scheduled to see Dr. Chapman 05/28/22. Please advise patient if he should follow up with funeral pre arrangement counselor prior to PCP visit. documented in this encounter[facility] History of Past illness Narrative* Problem Noted Date Resolved Date On mechanically assisted ventilation 07/19/2019 07/20/2019 Overview: Grade I airway A/P- WTE Stress hyperglycemia 07/19/2019 07/21/2019 Overview: H: Post op A/P-No h/o DM. [place]-operative insulin resistance and exacerbation of hyperglycemia. RHI drip per ICU protocol, transition to SSI documented as of this encounter (statuses as of 02/22/2022) [facility]* Clinical Note Date No Information [facility] Work Phone: Consult note Author Kush Daniel [facility] Note Date/Time November 20, 2024 1:4 3pm [facility] Medical Records Department [address] [place] [id number] Counseling Note - Pharmacy 11/20/24 1342 MR#: [id number] Acct: [id number] Name: JARED RAYMOND Kaitlin Rep #:[id number] : 1945 79 From: Kush Daniel PCP: MARYAM Guerra Status:ADM IN Y Location: [place] [address] Pharmacy [place] Med Reconciliation Pharmacy Service has performed discharge [...] tabs 11/20/24 11/20/24 1343 <Electronically signed by Kuhs guzman> Date _ Kush Vela Signature (if applicable): Date CC: ~ Signed [facility] Work Phone: Discharge summary* Clinical Note Date No Information [facility] Work Phone: Discharge summary Author Stevie Harrington [facility] Note Date/Time November 07, 2024 5:07 pm [facility] Medical Records Department [address] [place] [id number] Discharge Summary 11/07/24 1655 MR#: [id number] Acct: [id number] Name: JARED RAYMOND Kaitlin Rep #:[id number] : 1945 79 From: Stevie Harrington DO PCP: MARYAM Guerra Status:ADM IN Location: [place] [address] Providers Date of Admission: 11/06/24 Primary Care Physician: MARYAM Guerra Consultations 11/06/24 03:28 Consult: Gastroenterology Routine Consulting Provider: [facility] Reason for Consult: LGIB with BRBPR; [...] 70.4 H, Lymph % (Auto) 14.8 L, Iron % (Auto) 12.5 H, Eos % (Auto) [...] 0RF Referrals / Follow Up: Mariela Olson, [employer] SUPERVISOR-C [Primary Care Provider] - Within 2 Weeks Disposition Disposition (needs filled in before D/C Order can be placed): Home, Self Care Charges/Coding Visit Charges Inpatient E&M: 72015 Disch Hosp >30min 11/07/24 1707 <Electronically signed by Stevie Harrington DO> Cosigner Signature (if applicable): CC: MARYAM Olson; Dr. Stevie Harrington DO~ Signed [facility] Work Phone: Evaluation noteNo assessment information available [facility] Work Phone: Evaluation note* Diagnosis Onset Date Resolution Status Acute alteration in mental status acute Elevated troponin acute Chronic hypertension chronic [facility] Work Phone: Evaluation note* Diagnosis Onset Date Resolution Status Elevated troponin acute Chronic hypertension chronic Hypertensive emergency witho ut congestive heart failure resolved [facility] Work Phone: Evaluation note* Type Assessment [...] begin a bowel regimen which will include saoa-zao-aumdgti medicine such as senna, Colace and MiraLAX. Please return to the emergency department if your symptoms change or worsen. 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 Advance Directive(s) 07/18/2019 4:40 PM Advance Directive(s) 07/12/2019 2:31 PM Advance Directive(s) 05/14/2019 8:30 AM Advance Directive Response Recorded Date/ Time Advance Directives No October 31 11:26am Living Will Yes March 06, 2018 2:30pm Power of Concrete Form Setter No March 06 2:30pm Advance Directive Response Recorded Date/ Time Advance Directives No October 31 10:26am Living Will Yes August 15 6:13pm Power of Concrete Form Setter Yes August 15, 2023 6:13pm Name of Medical Power of Concrete Form Setter [place] August 15, 2023 6:13pm Advance Directive Response Recorded Date/ Time Name of Medical Power of Concrete Form Setter SPRING RAYMOND August 15, 2023 11:26pm Advance Directives No October 31 11:26am Living Will No December 11, 2023 2 :44am Power of Concrete Form Setter No December 11, 2023 2:44am Directive Yes / No Effective Date File Name No Information Advance Directive Response Recorded Date/ Time Living Will Yes April 12, 2024 2:59am Do you have a Healthcare Power of Concrete Form Setter? Yes April 12, 2024 2:59am Living Will Yes April 27, 2024 2:58pm Do you have a Healthcare Power of Concrete Form Setter? Yes April 27, 2024 2:58pm Living Will Yes October 24, 2024 6:01pm Do you have a Healthcare Power of Concrete Form Setter? Yes October 24, 2024 6:01pm Name of Medical Power of Concrete Form Setter October 24, 2024 6:01pm Advance Directives No October 31 11:26am Advance Directive Response Recorded Date/ Time Living Will Yes April 12, 2024 2:59am Do you have a Healthcare Power of Concrete Form Setter? Yes April 12, 2024 2:59am Living Will Yes April 27, 2024 2:58pm Do you have a Healthcare Power of Concrete Form Setter? Yes April 27, 2024 2:58pm Living Will Yes October 24, 2024 6:01pm Do you have a Healthcare Power of Concrete Form Setter? Yes October 24, 2024 6:01pm Name of Medical Power of Concrete Form Setter October 24, 2024 6:01pm Living Will No November 05, 2024 10:42pm Do you have a Healthcare Power of Concrete Form Setter? No November 05, 2024 10:42pm Advance Directives No October 31 11:26am Advance Directive Response Recorded Date/ Time Living Will Yes April 12, 2024 2:59am Do you have a Healthcare Power of Concrete Form Setter? Yes April 12, 2024 2:59am Living Will Yes April 27, 2024 2:58pm Do you have a Healthcare Power of Concrete Form Setter? Yes April 27, 2024 2:58pm Living Will Yes October 24, 2024 6:01pm Do you have a Healthcare Power of Concrete Form Setter? Yes October 24, 2024 6:01pm Name of Medical Power of Concrete Form Setter October 24, 2024 6:01pm Living Will No November 06, 2024 3:38am Do you have a Healthcare Power of Concrete Form Setter? No November 06, 2024 3:38am Advance Directives No October 31 11:26am Advance Directive Response Recorded Date/ Time Living Will Yes April 12, 2024 2:59am Do you have a Healthcare Power of Concrete Form Setter? Yes April 12, 2024 2:59am Living Will Yes April 27, 2024 2:58pm Do you have a Healthcare Power of Concrete Form Setter? Yes April 27, 2024 2:58pm Living Will No November 18, 2024 10:49am Do you have a Healthcare Power of Concrete Form Setter? No November 18, 2024 10:49am Living Will Yes October 24, 2024 6:01pm Do you have a Healthcare Power of Concrete Form Setter? Yes October 24, 2024 6:01pm Name of Medical Power of Concrete Form Setter October 24, 2024 6:01pm Living Will No November 06, 2024 3:38am Do you have a Healthcare Power of Concrete Form Setter? No November 06, 2024 3:38am Advance Directives No October 31 11:26am Advance Directive Response Recorded Date/ Time Living Will Yes April 12, 2024 2:59am Do you have a Healthcare Power of Concrete Form Setter? Yes April 12, 2024 2:59am Living Will Yes April 27, 2024 2:58pm Do you have a Healthcare Power of Concrete Form Setter? Yes April 27, 2024 2:58pm Living Will No November 18, 2024 3:46pm Do you have a Healthcare Power of Concrete Form Setter? No November 18, 2024 3:46pm Living Will Yes October 24, 2024 6:01pm Do you have a Healthcare Power of Concrete Form Setter? Yes October 24, 2024 6:01pm Name of Medical Power of Concrete Form Setter October 24, 2024 6:01pm Living Will No November 06, 2024 3:38am Do you have a Healthcare Power of Concrete Form Setter? No November 06, 2024 3:38am Advance Directives No October 31 11:26am Advance Directive Response Recorded Date/ Time Living Will Yes April 12, 2024 2:59am Do you have a Healthcare Power of Concrete Form Setter? Yes April 12, 2024 2:59am Living Will Yes April 27, 2024 2:58pm Do you have a Healthcare Power of Concrete Form Setter? Yes April 27, 2024 2:58pm Living Will No November 18, 2024 3:46pm Do you have a Healthcare Power of Concrete Form Setter? No November 18, 2024 3:46pm Living Will Yes October 24, 2024 6:01pm Do you have a Healthcare Power of Concrete Form Setter? Yes October 24, 2024 6:01pm Name of Medical Power of Concrete Form Setter October 24, 2024 6:01pm Living Will No November 06, 2024 3:38am Do you have a Healthcare Power of Concrete Form Setter? No November 06, 2024 3:38am Living Will No January 14, 2025 9:01am Do you have a Healthcare Power of Concrete Form Setter? No January 14, 2025 9:01am Advance Directives No January 14 9:01am Advance Directive Response Recorded Date/ Time Living Will Yes April 12, 2024 2:59am Do you have a Healthcare Power of Concrete Form Setter? Yes April 12, 2024 2:59am Living Will Yes April 27, 2024 2:58pm Do you have a Healthcare Power of Concrete Form Setter? Yes April 27, 2024 2:58pm Living Will No November 18, 2024 3:46pm Do you have a Healthcare Power of Concrete Form Setter? No November 18, 2024 3:46pm Do you have a Healthcare Power of Concrete Form Setter? No February 11, 2025 12:52am Living Will Yes October 24, 2024 6:01pm Do you have a Healthcare Power of Concrete Form Setter? Yes October 24, 2024 6:01pm Name of Medical Power of Concrete Form Setter October 24, 2024 6:01pm Living Will No November 06, 2024 3:38am Do you have a Healthcare Power of Concrete Form Setter? No November 06, 2024 3:38am Living Will No January 14, 2025 9:01am Do you have a Healthcare Power of Concrete Form Setter? No January 14, 2025 9:01am Advance Directives [...] November 20, 2024 1:2 2pm [facility] October 10:59am RE-EVALUATE November [...] November 20, 2024 1:2 2pm F/U FROM 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 [facility] 2024 3:16pm Chief Complaint Admit Date 6 [...] or prosecute any alcohol or drug abuse patient.[facility] the event this information is protected by the Federal Confidentiality of Alcohol and Drug Abuse Patient Records regulations: The Federal rules restrict any use of the information to criminally investigate or prosecute any alcohol or drug abuse patient.[facility] Reason for Visit (unrecogniz ed section and content) Reason Comments Patient Question Care Teams (unrecognized sec tion and content) Desk Maker Relationship Specialty Start Date End Date Neville Islas DO [address] [address] PCP - General Family Practice 05/07/19 Team [...] Member Role Status Dates Mariela Shahram , [employer]PER[employer]OR-C Primary Care Provider Active Team Status: Inactive Member Role Status Dates Mariela Shahram , [employer]OR-C Primary Care Provider Active Start: July 04, 2024 End: July 04, 2024 Mariela Shahram , [employer] SUPERVISOR-C Referring Provider Active St art: July 04, 2024 End: July 04, 2024 Dr. Papi Hernandez MD Attending Provider Active S tart: July 04, 2024 End: July 04, 2024 Team Status: Inactive Member Role Status Dates Mariela Shahram , [employer]OR-C Primary Care Provider Active Start: July 18, 2024 End: July 18, 2024 Mariela Shahram , [employer] SUPER[employer]OR-C Referring Provider Active St art: July 18, 2024 End: July 18, 2024 Selam Craig NP, [employer]-C Attending Provider Active Start: July 18, 2024 End: July 18, 2024 Team Status: Inactive Member Role Status Dates Mariela Shahram , [employer]PER[employer]OR-C Primary Care Provider Active Start: August 08, 2024 End: August 08, 2024 Mariela Shahram , [employer]PER[employer]OR-C Referring Provider Active St art: August 08, 2024 End: August 08, 2024 Dr. Papi Hernandez MD Attending Provider Active S tart: August 08, 2024 End: August 08, 2024 Team Status: Inactive Member Role Status Dates Mariela Shahram , [employer] SUPER[employer]OR-C Primary Care Provider Active Start: September 05, 2024 End: September 05, 2024 Mariela Shahram , [employer] SUPER[employer]OR-C Attending Provider Active St art: September 05, 2024 End: September 05, 2024 Team Status: Inactive Member Role Status Dates Mariela Shahram , [employer] SUPERVISOR-C Primary Care Provider Active Start: October 17, 2024 End: October 17, 2024 Mariela Shahram , [employer]PER[employer]OR-C Referring Provider Active St art: October 17, 2024 End: October 17, 2024 Malinda Webster [employer] SUPERVISOR, [employer] SUPERVISOR-C Attending Provider Active S tart: October 17, 2024 End: October 17, 2024 Team Status: Active Member Role Status Dates Mariela Olson , [employer] SUPERVISOR-C Primary Care Provider Active Start: October 17, 2024 Malinda Webster [employer] SUPERVISOR, [employer] SUPERVISOR-C Attending Provider Active S tart: October 17, 2024 Malinda Webster [employer] SUPERVISOR, [employer] SUPERVISOR-C Referring Provider Active S tart: October 17, 2024 Team Status: Active Member Role Status Dates Mariela Olson , [employer] SUPER[employer]OR-C Primary Care Provider Active Start: October 24, 2024 Dr. Papi Hernandez MD Attending Provider Active S tart: October 24, 2024 Dr. Papi Hernandez MD Referring Provider Active S tart: October 24, 2024 Team Status: Inactive Member Role Status Dates Mariela Olson , [employer]PER[employer]OR-C Primary Care Provider Active Start: October 24, 2024 End: October 24, 2024 Dr. Jerry Hightower DO Emergency Provider Active Start: October 24, 2024 End: October 24, 2024 Team Status: Inactive Member Role Status Dates Mariela Olson , [employer]OR-C Primary Care Provider Active Start: October 17, 2024 End: October 17, 2024 Malinda Webster [employer] SUPERVISOR, [employer] SUPERVISOR-C Attending Provider Active S tart: October 17, 2024 End: October 17, 2024 Malinda Webster [employer] SUPERVISOR, [employer] SUPERVISOR-C Referring Provider Active S tart: October 17, 2024 End: October 17, 2024 Team Status: Inactive Member Role Status Dates Mariela Olson , [employer] SUPERVISOR-C Primary Care Provider Active Start: October 24, 2024 End: October 24, 2024 Dr. Papi Hernandez MD Attending Provider Active S tart: October 24, 2024 End: October 24, 2024 Dr. Papi Hernandez MD Referring Provider Active S tart: October 24, 2024 End: October 24, 2024 Team Status: Inactive Member Role Status Dates Mariela Olson , [employer] SUPER[employer]OR-C Primary Care Provider Active Start: October 24, 2024 End: October 24, 2024 Dr. Jerry Hightower DO Attending Provider Active Start: October 24, 2024 End: October 24, 2024 Dr. Jerry Hightower , DO Emergency Provider Active Start: October 24, 2024 End: October 24, 2024 Team Status: Inactive Member Role Status Dates Mariela Shahram , [employer] SUPER[employer]OR-C Primary Care Provider Active Start: October 31, 2024 End: October 31, 2024 Marielabruce Olson , [employer] SUPER[employer]OR-C Referring Provider Active St art: October 31, 2024 End: October 31, 2024 Dr. Papi Hernandez MD Attending Provider Active S tart: October 31, 2024 End: October 31, 2024 Team Status: Active Member Role Status Dates Marielabruce Olson , [employer]PER[employer]OR-C Primary Care Provider Active Start: November 06, 2024 Dr. Harrison Linares , DO Emergency Provider Active Start: November 06, 2024 Dr. Darrel Carpenter , DO Admit Provider Active Start: November 06, 2024 Dr. Darrel Carpenter , DO Attending Provider Active Start: November 06, 2024 Team Status: Inactive Member Role Status Dates Mariela Olson , [employer]OR-C Primary Care Provider Active Start: November 06, [...] Member Role Status Dates Mariela Olson , [employer] SUPERVISOR-C Primary Care Provider Active Start: November 06, [...] Member Role Status Dates Mariela Olson , [employer] SUPER[employer]OR-C Primary Care Provider Active Start: November 07, [...] Active Member Role Status Dates Mariela Olson [employer] SUPER[employer]OR-C Primary Care Provider Active Start: November 06, [...] Active Member Role Status Dates Mariela Olson [employer] SUPER[employer]OR-C Primary Care Provider Active Start: November 07, 2024 End: November 07, 2024 Dr. Adrian Flores MD Attending Provider Active S tart: November 07, 2024 End: November 07, 2024 Dr. Adrian Flores MD Referring Provider Active S tart: November 07, 2024 End: November 07, 2024 Team Status: Active Member Role Status Dates Mariela Olson [employer] SUPER[employer]OR-C Primary Care Provider Active Start: November 18, 2024 Dr. Lazaro Sharp MD Emergency Provider Active Sta rt: November 18, 2024 Dr. Kelvin Schrader MD Admit Provider Active Start: November 18, 2024 Dr. Kelvin Schrader MD Attending Provider Active Start: November 18, 2024 Dr. Kelvin Schrader MD Referring Provider Active Start: November 18, 2024 Team Status: Inactive Member Role Status Dates Mariela Olson [employer] SUPER[employer]OR-C Primary Care Provider Active Start: November 18, [...] Active Member Role Status Dates Mariela Olson [employer] SUPER[employer]OR-C Primary Care Provider Active Start: November 18, 2024 Dr. Lazaro Sharp MD Emergency Provider Active Sta rt: November 18, 2024 Dr. Kelvin Schrader MD Admit Provider Active Start: November 18, 2024 Dr. Kelvin Schrader MD Attending Provider Active Start: November 18, 2024 Dr. Kelvin Schrader MD Other Provider Active Start: November 18, 2024 Team Status: Active Member Role Status Dates Mariela Olson [employer] SUPER[employer]OR-C Primary Care Provider Active Start: November 19, [...] Active Member Role Status Dates Mariela Olson [employer] SUPER[employer]OR-C Primary Care Provider Active Start: November 20, [...] Inactive Member Role Status Dates Mariela Olson [employer]PER[employer]OR-C Primary Care Provider Active Start: November 28, 2024 End: November 28, 2024 Mariela Shahram , [employer] SUPER[employer]OR-C Referring Provider Active St art: November 28, 2024 End: November 28, 2024 Dr. Brenda Araujo MD Attending Provider Active Start: November 28, 2024 End: November 28, 2024 Team Status: Inactive Member Role Status Dates Mariela Shahram , [employer] SUPER[employer]OR-C Primary Care Provider Active Start: November 28, 2024 End: November 28, 2024 Malinda Webster [employer] SUPERVISOR, [employer] SUPERVISOR-C Attending Provider Active S tart: November 28, 2024 End: November 28, 2024 Malinda Webster [employer] SUPERVISOR, [employer] SUPERVISOR-C Referring Provider Active S tart: November 28, 2024 End: November 28, 2024 Team Status: Active Member Role Status Dates Mariela Shahram , [employer] SUPERVISOR-C Primary Care Provider Active Start: November 28, 2024 Dr. Adrian Flores MD Attending Provider Active S tart: November 28, 2024 Team Status: Inactive Member Role Status Dates Mariela Shahram , [employer] SUPERVISOR-C Primary Care Provider Active Start: November 30, 2024 End: November 30, 2024 Dr. Brenda Araujo MD Attending Provider Active Start: November 30, 2024 End: November 30, 2024 Dr. Brenda Araujo MD Referring Provider Active Start: November 30, 2024 End: November 30, 2024 Team Status: Inactive Member Role Status Dates Mariela Shahram , [employer] SUPERVISOR-C Primary Care Provider Active Start: December 04, 2024 End: December 04, 2024 Mariela Shahram , [employer] SUPERVISOR-C Referring Provider Active St art: December 04, 2024 End: December 04, 2024 Dr. Ari Silvestre DO Attending Provider Active Start: December 04, 2024 End: December 04, 2024 Team Status: Active Member Role Status Dates Mariela Shahram , [employer] SUPERVISOR-C Primary Care Provider Active Start: December 05, 2024 Dr. Brenda Araujo MD Attending Provider Active Start: December 05, 2024 Dr. Brenda Araujo MD Referring Provider Active Start: December 05, 2024 Team Status: Inactive Member Role Status Dates Mariela Shahram , [employer] SUPERVISOR-C Primary Care Provider Active Start: December 05, 2024 End: December 05, 2024 Dr. Brenda Araujo MD Attending Provider Active Start: December 05, 2024 End: December 05, 2024 Dr. Brenda Araujo MD Referring Provider Active Start: December 05, 2024 End: December 05, 2024 Team Status: Inactive Member Role Status Dates Mariela Olson [employer] SUPER[employer]OR-C Primary Care Provider Active Start: December 14, 2024 End: December 14, 2024 Malinda Webster [employer] SUPERVISOR, [employer] SUPERVISOR-C Attending Provider Active S tart: December 14, 2024 End: December 14, 2024 Dr. Brenda Araujo MD Referring Provider Active Start: December 14, 2024 End: December 14, 2024 Team Status: Inactive Member Role Status Dates Mariela Olson [employer]PER[employer]OR-C Primary Care Provider Active Start: January 09, 2025 End: January 09, 2025 Mariela Olson [employer]-C Referring Provider Active St art: January 09, 2025 End: January 09, 2025 Dr. Brenda Araujo MD Attending Provider Active Start: January 09, 2025 End: January 09, 2025 Desk Maker Relationship Specialty Start Date End Date Neville Islas DO [address] [place] [address] PCP - General Family Medicine 05/07/19 Team [...] Inactive Member Role Status Dates Mariela Olson [employer] SUPER[employer]OR-C Primary Care Provider Active Start: January 14, 2025 End: January 14, 2025 Dr. Adrian Flores MD Attending Provider Active S tart: January 14, 2025 End: January 14, 2025 Dr. Adrian Flores MD Referring Provider Active S tart: January 14, 2025 End: January 14, 2025 Team Status: Active Member Role/Relationship Status Dates Mariela Olson [employer]PER[employer]OR-C Primary Care Provider Active Team Status: Inactive Member Role/Relationship Status Dates Mariela Shahram , [employer] SUPER[employer]OR-C Primary Care Provider Active Start: October 17, 2024 End: October 17, 2024 Mariela Olson [employer] SUPER[employer]OR-C Referring Provider Active St art: October 17, 2024 End: October 17, 2024 Malinda Webster [employer] SUPERVISOR, [employer] SUPERVISOR-C Attending Provider Active S tart: October 17, 2024 End: October 17, 2024 Team Status: Inactive Member Role/Relationship Status Dates Mariela Olson , [employer] SUPERVISOR-C Primary Care Provider Active Start: October 17, 2024 End: October 17, 2024 Malinda Webster [employer] SUPERVISOR, [employer] SUPERVISOR-C Attending Provider Active S tart: October 17, 2024 End: October 17, 2024 Malinda Webster [employer] SUPERVISOR, [employer] SUPERVISOR-C Referring Provider Active S tart: October 17, 2024 End: October 17, 2024 Team Status: Active Member Role/Relationship Status Dates Mariela Olson , [employer] SUPER[employer]OR-C Primary Care Provider Active Start: October 24, 2024 Dr. Papi Hernandez MD Attending Provider Active S tart: October 24, 2024 Dr. Papi Hernandez MD Referring Provider Active S tart: October 24, 2024 Team Status: Inactive Member Role/Relationship Status Dates Mariela Olson , [employer] SUPER[employer]OR-C Primary Care Provider Active Start: October 24, 2024 End: October 24, 2024 Dr. Papi Hernandez MD Attending Provider Active S tart: October 24, 2024 End: October 24, 2024 Dr. Papi Hernandez MD Referring Provider Active S tart: October 24, 2024 End: October 24, 2024 Team Status: Inactive Member Role/Relationship Status Dates Mariela Olson [employer]OR-C Primary Care Provider Active Start: October 24, 2024 End: October 24, 2024 Dr. Jerry Hightower DO Attending Provider Active Start: October 24, 2024 End: October 24, 2024 Dr. Jerry Hightower DO Emergency Provider Active Start: October 24, 2024 End: October 24, 2024 Team Status: Inactive Member Role/Relationship Status Dates Mariela Olson , [employer]OR-C Primary Care Provider Active Start: October 31, 2024 End: October 31, 2024 Mariela Olson [employer]OR-C Referring Provider Active St art: October 31, 2024 End: October 31, 2024 Dr. Papi Hernandez MD Attending Provider Active S tart: October 31, 2024 End: October 31, 2024 Team Status: Inactive Member Role/Relationship Status Dates Mariela Olson , [employer] Primary Care Provider Active Start: November 06, [...] Member Role/Relationship Status Dates Mariela Olson , [employer] Primary Care Provider Active Start: November 06, [...] Member Role/Relationship Status Dates Mariela Olson , [employer] Primary Care Provider Active Start: November 07, 2024 End: November 07, 2024 Dr. Adrian Flores MD Attending Provider Active S tart: November 07, 2024 End: November 07, 2024 Dr. Adrian Flores MD Referring Provider Active S tart: November 07, 2024 End: November 07, 2024 Team Status: Active Member Role/Relationship Status Dates Mariela Olson , [employer] Primary Care Provider Active Start: November 07, [...] Inactive Member Role/Relationship Status Dates Mariela Olson [employer]C Primary Care Provider Active Start: November 18, [...] Active Member Role/Relationship Status Dates Mariela Olson [employer] Primary Care Provider Active Start: November 18, 2024 Dr. Lazaro Sharp MD Emergency Provider Active Sta rt: November 18, 2024 Dr. Kelvin Schrader MD Admit Provider Active Start: November 18, 2024 Dr. Kelvin Schrader MD Attending Provider Active Start: November 18, 2024 Dr. Kelvin Schrader MD Other Provider Active Start: November 18, 2024 Team Status: Active Member Role/Relationship Status Dates Mariela Olson [employer] Primary Care Provider Active Start: November 19, [...] Member Role/Relationship Status Dates Mariela Olson , [employer] Primary Care Provider Active Start: November 19, [...] Member Role/Relationship Status Dates Mariela Olson , [employer] Primary Care Provider Active Start: November 20, [...] Member Role/Relationship Status Dates Mariela Olson , [employer] Primary Care Provider Active Start: November 28, 2024 End: November 28, 2024 Mariela Olson , [employer] Referring Provider Active St art: November 28, 2024 End: November 28, 2024 Dr. Brenda Araujo MD Attending Provider Active Start: November 28, 2024 End: November 28, 2024 Team Status: Inactive Member Role/Relationship Status Dates Mariela Olson , [employer] Primary Care Provider Active Start: November 28, 2024 End: November 28, 2024 Malinda Webster [employer], [employer] Attending Provider Active S tart: November 28, 2024 End: November 28, 2024 Malinda Webster [employer], [employer] Referring Provider Active S tart: November 28, 2024 End: November 28, 2024 Team Status: Active Member Role/Relationship Status Dates Mariela Olson , [employer] Primary Care Provider Active Start: November 28, 2024 Dr. Adrian Flores MD Attending Provider Active S tart: November 28, 2024 Team Status: Inactive Member Role/Relationship Status Dates Mariela Shahram , [employer] Primary Care Provider Active Start: November 30, 2024 End: November 30, 2024 Dr. Brenda Araujo MD Attending Provider Active Start: November 30, 2024 End: November 30, 2024 Dr. Brenda Araujo MD Referring Provider Active Start: November 30, 2024 End: November 30, 2024 Team Status: Inactive Member Role/Relationship Status Dates Mariela Shahram , [employer] Primary Care Provider Active Start: December 04, 2024 End: December 04, 2024 Mariela Shahram , [employer]-C Referring Provider Active St art: December 04, 2024 End: December 04, 2024 Dr. Ari Silvestre DO Attending Provider Active Start: December 04, 2024 End: December 04, 2024 Team Status: Inactive Member Role/Relationship Status Dates Mariela Shahram , [employer] Primary Care Provider Active Start: December 05, 2024 End: December 05, 2024 Dr. Brenda Araujo MD Attending Provider Active Start: December 05, 2024 End: December 05, 2024 Dr. Brenda Araujo MD Referring Provider Active Start: December 05, 2024 End: December 05, 2024 Team Status: Inactive Member Role/Relationship Status Dates Mariela Shahram , [employer] Primary Care Provider Active Start: December 14, 2024 End: December 14, 2024 Malinda Webster [employer], [employer] Attending Provider Active S tart: December 14, 2024 End: December 14, 2024 Dr. Brenda Araujo MD Referring Provider Active Start: December 14, 2024 End: December 14, 2024 Team Status: Active Member Role/Relationship Status Dates Mariela Shahram , [employer] Primary Care Provider Active Start: January 06, 2025 Dr. Adrian Flores MD Attending Provider Active S tart: January 06, 2025 Dr. Adrian Flores MD Referring Provider Active S tart: January 06, 2025 Dr. Adrian Flores MD Other Provider Active Start : January 06, 2025 Team Status: Inactive Member Role/Relationship Status Dates Mariela Shahram , [employer] Primary Care Provider Active Start: January 09, [...] section and content) DATE CREATED AUTHOR 01/14/2025 [facility] DATE CREATED AUTHOR AUTHOR'S ORGANIZ ATION 01/14/2025 [facility] DATE CREATED AUTHOR AUTHOR'S ORGANIZ ATION 01/24/2025 [facility] DATE CREATED AUTHOR AUTHOR'S ORGANIZ ATION 02/07/2025 [facility] FOR RECORDS PERTAINING TO PATIENTS WHO [...] BE BASED ON THE PRIMARY CLINICAL RECORDS. [facility] [employer] [facility]. provides no warranty or guarantee of the accuracy or completeness of information in this document.
[2025-02-11 05:24] LABS: AST(SGOT) 126 U/L (<=37); Alanine Aminotransfer ALT/SGPT 147 U/L (<=46); Albumin, Serum 3.7 g/dL (3.4-4.8); Alkaline Phosphatase 501 U/L (40-129); Anion Gap 12 (5-15); BUN 9 mg/dL (4-19); BUN/Creat Ratio 10.5 RATIO (10-20); Calcium,Total 8.9 mg/dL (7.6-11.0); Carbon Dioxide 19.8 mmol/L (21.0-32.0); Chloride 94 mmol/L (98-108); Estimated Creatinine Clearance 65.58 ml/min (50-250); Globulin 2.6 g/dL (2.2-4.2); Glucose 108 mg/dL (70-99); Potassium 3.8 mmol/L (3.3-5.1)
[2025-02-11 05:49] LABS: Hematocrit 29.6 % (40-54); Hemoglobin 10.2 g/dL (13.0-16.5); Mean Corpuscular Volume 84.6 fL (80-94); Red Blood Count 3.50 M/mm3 (4.6-6.2); White Blood Count 7.2 K/mm3 (4.4-11.0)
[2025-02-11 05:50] LABS: Mean Corp Hgb Conc 34.5 g/dL (32-36); Mean Platelet Vol. 10.6 fl (6.2-12.0); Platelet Count 240 K/mm3 (150-450); RBC Distribution Width CV 15.6 % (11.6-14.6); RBC Distribution Width SD 47.8 fl (35.1-43.9)
--- NOTE | 2025-02-11 06:50 | PCM.HOSP.N ---
Hospitalist Note Notified by nursing that was unhappy with patient's DNR CCA, DNI CODE STATUS. Went to the bedside to discuss this further with patient and . Notified them that per Dr. Araujo' note, decision had been made to change patient to DNR code status. However patient and noted this was not the case. I spent considerable time at the bedside discussing the CODE STATUS options with family. They discussed this with patient's daughter, and and daughter were concerned that if patient had cardiac arrest they would like an attempt to be made for him to be resuscitated. Patient was unsure on his position on this. I discussed that full CODE STATUS means full CPR with intubation if necessary. I noted that given his impending liver failure, a cardiac arrest would likely be from a noncardiac cause and cardiac resuscitation would not ultimately change the underlying cause for the arrest. However, at this time patient would like to be FULL CODE until further discussions with hospice care today. I did note to them that it is unlikely patient would be excepted for hospice care as a full code. Patient and were appreciative of this discussion.
--- NOTE | 2025-02-11 07:25 | PCM.PN.HOSP ---
Reason for Visit Chief Complaint: Worsening abdominal distention Subjective Subjective Patient is an 79-year-old gentleman with history of colon cancer with liver mets who presented to the emergency department with abdominal distention fatigue and anorexia. Imaging studies demonstrated ascites admitted to a monitored bed for subsequent management Objective Data Objective Data Vital Signs: Vital Signs Temp Pulse Resp BP Pulse Ox O2 Del Method 98.1 F 78 18 188/78 H 100 Room Air 02/11/25 05:22 02/11/25 05:22 02/11/25 05:22 02/11/25 05:22 02/11/25 05:22 02/11/25 05:22 Oxygen Delivery Method Room Air Weight: 71.7 kg Body Mass Index (BMI) 24.9 Intake & Output: Intake and Output for Last 24 Hours 02/09/25 02/10/25 02/11/25 23:59 23:59 23:59 Output Total 250 / 250 Balance -250 / -250 Lab / Micro Data 02/11/25 04:36 02/11/25 04:36 Labs: Laboratory Results - last 24 hr 02/10/25 22:59: WBC 7.3, RBC 3.58 L, Hgb 10.3 L, Hct 30.3 L, MCV 84.6, MCH 28.8, MCHC 34.0, RDW Std Deviation 47.2 H, RDW Coeff of Deepika 15.2 H, Plt Count 266, MPV 10.2, Immature Gran % (Auto) 0.300, Neut % (Auto) 78.1 H, Lymph % (Auto) 7.7 L, [place] % (Auto) 12.4 H, Eos % (Auto) 1.1, Baso % (Auto) 0.4, Absolute Neuts (auto) 5.7, Absolute Lymphs (auto) 0.56 L, Nucleated RBC % 0, PT 13.6, INR 1.0, APTT 28.2, Sodium 124 L, Potassium 3.9, Chloride 92 L, Carbon Dioxide 19.0 L, Anion Gap 13, BUN 10, Creatinine 0.87, Estim Creat Clear Calc 63.31, Est GFR (MDRD) Non-Af 87, BUN/Creatinine Ratio 11.2, Glucose 120 H, Calcium 8.9, Total Bilirubin 7.43 H, Direct Bilirubin 5.21 H, AST 132 H, ALT 160 H, Alkaline Phosphatase 516 H, Ammonia 25.6, Total Protein 6.5, Albumin 3.8, Globulin 2.7, Lipase 141 H, Urine Color Yellow, Urine Clarity Cloudy, Urine pH 6.0, Ur Specific [place] 1.015, Urine Protein 30 H, Urine Glucose (UA) Normal, Urine Ketones Negative, Urine Occult Blood 10 H, Urine Nitrite Negative, Urine Bilirubin 3 H, Urine Urobilinogen 1 H, Ur Leukocyte Esterase 25 H, Urine RBC 0-5 SEEN, Urine WBC 0-5 SEEN, Ur Squamous Epith Cells 0-5 SEEN, Amorphous Sediment 1+, Urine Bacteria 0 SEEN, Urine Mucus 0 SEEN 02/11/25 04:36: WBC 7.2, RBC 3.50 L, Hgb 10.2 L, Hct 29.6 L, MCV 84.6, MCH 29.1, MCHC 34.5, RDW Std Deviation 47.8 H, RDW Coeff of Deepika 15.6 H, Plt Count 240, MPV 10.6, Sodium 126 L, Potassium 3.8, Chloride 94 L, Carbon Dioxide 19.8 L, Anion Gap 12, BUN 9, Creatinine 0.84, Estim Creat Clear Calc 65.58, Est GFR (MDRD) Non-Af 88, BUN/Creatinine Ratio 10.5, Glucose 108 H, Calcium 8.9, Total Bilirubin 8.06 H, AST 126 H, ALT 147 H, Alkaline Phosphatase 501 H, Total Protein 6.3, Albumin 3.7, Globulin 2.6, Albumin/Globulin Ratio 1.5 Radiography Diagnostic Testing: Radiology Impression Chest X-Ray 02/10/25 22:46 IMPRESSION: No acute chest findings. Reading Location: [facility] Abdomen/Pelvis CT 02/11/25 22:42 IMPRESSION: Worsening liver metastatic disease. Persistent abdominal adenopathy. Interval development of large ascites likely malignant. Interval dilatation of the biliary tree without obstructing lesion visualized. Consider MRCP. 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 Interval development of proximal left-sided hydronephrosis, the ureter may be compressed by retroperitoneal adenopathy. Status post right hemicolectomy, with ileocolic anastomosis. Reading Location: [facility] Physical Exam Narrative GENERAL: cooperative HEENT: Atraumatic; normocephalic EYES; icteric, Normal Conjunctiva NECK; supple, normal thyroid, RESPIRATORY: Diminished to auscultation CARDIOVASCULAR: Regular S1 S2, GI: Abdomen distended and firm : No Renal angle tenderness; EXTREMITIES: edema, no clubbing, MUSCULOSKELETAL: no muscle wasting NEURO: Awake; no lateralizing signs. SKIN: No Rash PSYCH; Flat affect Assessment & Plan Assessment/Plan (1) Acute liver failure: (2) Ascites: (3) Metastasis to liver: PLAN: Plan Patient is an 79-year-old gentleman with history of colon cancer with liver mets who presented to the emergency department with abdominal distention fatigue and anorexia. Imaging studies demonstrated ascites admitted to a monitored bed for subsequent management 1. Marked malignant ascites ? Secondary to patient colon cancer with mets to the liver. Patient has been admitted to monitored bed and order was given for patient to undergo therapeutic paracentesis 2. Colon cancer with with liver, intra-abdominal, probably thoracic lymph node metastases. Patient is status post laparoscopic right hemicolectomy April 2024. Patient was noted to have suboptimal performance to go through systemic chemotherapy referral was subsequently made to the hospital service as outpatient by patient's oncologist 3. Hyponatremia ? Multifactorial including possible SIADH from patient malignancy as well as secondary to fluid overload. Do expect improvement with diuresis 4. Hypertension ? Blood pressure controlled, home medications continued with dose adjustment as needed 5. Anemia ? Secondary to chronic disorder monitoring H&H and transfuse if patient becomes symptomatic or hemoglobin falls below 7 6.DVT prophylaxis ? Plan is to initiate subcu heparin following patient paracentesis Time spent in the patient's overall evaluation,decision-making process, review of diagnostic data, adjustment of management, discussion with other providers, nursing nursing and ancillary staff involved in patient's care documentation, 35 Minutes CODE STATUS; DNR CCA DO NOT INTUBATE. Patient family had apparently rescinded his initial CODE STATUS to full code. Had a further discussion explaining about what full code entailed including intubation during resuscitation attempt patient stated categorically that he did not want to be intubated under any circumstance. Patient CODE STATUS was changed back to DNR CCA/DNI time spent on this discussion 16 minutes Charges/Coding Visit Charges Inpatient E&M: 27157 PROLNG IP/OBS E/M EA 15 MIN Multi Select Codes Visit Charges Visit Charges: 44249 PROLNG IP/OBS E/M EA 15 MIN Hospitalists' Procedures Procedures: 85515 Advncd Care Plan addl 30 Min
--- NOTE | 2025-02-11 10:26 | CASEMGMT ---
Addendum entered by Libertad Dumont 02/11/25 11:36: Social Work Aminta from Hospice called SW, hospice to be here tomorrow at 9:30 to meet w/pt and . SW updated RN. THANIA Shahid Original Note: Social Work SW spoke w/pt's RN, physician spoke w/pt and and they are agreeable for a hospice referral. SW called [facility], faxed referral. They are to call to set up a meeting time and let SW know. THANIA Shahid
--- NOTE | 2025-02-11 10:26 | CASEMGMT ---
Addendum entered by Libertad Dumont 02/11/25 11:36: Social Work Aminta from Hospice called SW, hospice to be here tomorrow at 9:30 to meet w/pt and . SW updated RN. THANIA Shahid Original Note: Social Work SW spoke w/pt's RN, physician spoke w/pt and and they are agreeable for a hospice referral. SW called [facility], faxed referral. They are to call to set up a meeting time and let SW know. THANIA Shahid
[2025-02-11] MEDS: Lidocaine 2% (20 ml mdv) 20 ML Vial INFILT (15:07)
--- NOTE | 2025-02-11 22:42 | CT_ITS ---
PROCEDURE: ABDOMEN/PELVIS W IV CONT ONLY 02/11/2025 REASON FOR EXAM: ABDOMINAL DISTENTION WITH ASCITES TECHNIQUE: ABDOMEN/PELVIS W IV CONT ONLY Coronal and Sagittal reconstruction series were provided. CONTRAST: Isovue 370 VOLUME: 95 mL One or more dose reduction techniques were used (e.g., Automated exposure control, adjustment of the mA and/or kV according to patient size, use of iterative reconstruction technique. RADIATION DOSE SUMMARY: CTDlvol: 35 mGy DLP: 842 mGycm COMPARISON: 11/18/24 FINDINGS: Interval development of small bilateral pleural effusions. Normal heart size. Diffuse hepatic steatosis. There is redemonstration of extensive liver metastatic disease, interval increase in size and number of lesions. Series 2, image 17, 3.4 cm lesion, previously 2.5 cm. Image 29, 3 cm lesion, previously 2 cm. Distended gallbladder. Dilated CBD measuring up to 15 mm, without obstructing lesion visualized. Consider MRCP. Normal pancreas, spleen, right adrenal gland. There are multiple left adrenal nodules redemonstrated, suspicious for metastatic disease. Normal right kidney. Interval development of mild proximal left-sided hydronephrosis without ureteral stone. Normal bladder. Mildly enlarged prostate. There is redemonstration of periportal retroperitoneal and mesenteric adenopathy, similar to the previous examination. There is interval development of large ascites possibly malignant. No free air. Nonobstructed bowel. Multiple diverticula. Status post right hemicolectomy, with ileocolic anastomosis. Lumbar spine degeneration. Small ventral hernia of fat and ascites fluid, without bowel component. CT/Abdomen/Pelvis W IV Cont ONLY IMPRESSION: Worsening liver metastatic disease. Persistent abdominal adenopathy. Interval development of large ascites likely malignant. Interval dilatation of the biliary tree without obstructing lesion visualized. Consider MRCP. 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 Interval development of proximal left-sided hydronephrosis, the ureter may be c ompressed by retroperitoneal adenopathy. Status post right hemicolectomy, with ileocolic anastomosis. Reading Location: [place] [id number]
[2025-02-11] MEDS: 0.9% Saline Lock 10 ML Syringe IV (22:51)
[2025-02-12 03:00] VITALS: BP 170/68; PULSE 76; RESP 16; TEMP 36.8; O2SAT 95
[2025-02-12 05:53] LABS: Hematocrit 28.6 % (40-54); Hemoglobin 10.0 g/dL (13.0-16.5); Immature Granulocytes Count 0.020 X10^3/uL (0.0-0.0); Mean Corp Hgb Conc 35.0 g/dL (32-36); Mean Corpuscular Volume 83.1 fL (80-94); Mean Platelet Vol. 10.5 fl (6.2-12.0); NRBC Flagged by Analyzer 0 % (0-5); POSITIVE DIFFERENTIAL YES; Platelet Count 232 K/mm3 (150-450); RBC Distribution Width CV 15.9 % (11.6-14.6); RBC Distribution Width SD 47.7 fl (35.1-43.9); Red Blood Count 3.44 M/mm3 (4.6-6.2); White Blood Count 6.4 K/mm3 (4.4-11.0)
[2025-02-12 06:13] LABS: Magnesium 1.9 mg/dL (1.5-2.2)
[2025-02-12 06:16] LABS: AST(SGOT) 121 U/L (<=37); Alanine Aminotransfer ALT/SGPT 148 U/L (<=46); Albumin, Serum 3.5 g/dL (3.4-4.8); Alkaline Phosphatase 483 U/L (40-129); Anion Gap 12 (5-15); BUN 12 mg/dL (4-19); BUN/Creat Ratio 14.5 RATIO (10-20); Calcium,Total 8.8 mg/dL (7.6-11.0); Carbon Dioxide 20.7 mmol/L (21.0-32.0); Chloride 95 mmol/L (98-108); Estimated Creatinine Clearance 66.37 ml/min (50-250); Globulin 2.5 g/dL (2.2-4.2); Glucose 116 mg/dL (70-99); Potassium 3.8 mmol/L (3.3-5.1)
--- NOTE | 2025-02-12 06:55 | PN.HOSP_ITS ---
Reason for Visit Chief Complaint: Worsening abdominal distention Subjective Subjective Patient underwent paracentesis with dark yellow fluid noted within the right lower quadrant, large in volume with 3.7 L fluid removed on 02/11/2025 Objective Data Objective Data Vital Signs: Vital Signs Temp Pulse Resp BP Pulse Ox O2 Del Method 98.2 F 76 16 170/68 H 95 Room Air 02/12/25 03:00 02/12/25 03:00 02/12/25 03:00 02/12/25 03:00 02/12/25 03:00 02/12/25 03:00 Oxygen Delivery Method Room Air Weight: 71.7 kg Body Mass Index (BMI) 24.9 Intake & Output: Intake and Output for Last 24 Hours 02/10/25 02/11/25 02/12/25 23:59 23:59 23:59 Intake Total 480 / 480 Output Total 3950 / 3950 Balance -3470 / -3470 Lab / Micro Data 02/12/25 05:30 02/12/25 05:30 Labs: Laboratory Results - last 24 hr 02/12/25 05:30: WBC 6.4, RBC 3.44 L, Hgb 10.0 L, Hct 28.6 L, MCV 83.1, MCH 29.1, MCHC 35.0, RDW Std Deviation 47.7 H, RDW Coeff of Deepika 15.9 H, Plt Count 232, MPV 10.5, Immature Gran % (Auto) 0.300, Neut % (Auto) 72.4 H, Lymph % (Auto) 9.0 L, [place] % (Auto) 16.6 H, Eos % (Auto) 1.4, Baso % (Auto) 0.3, Absolute Neuts (auto) 4.7, Absolute Lymphs (auto) 0.58 L, Nucleated RBC % 0, Sodium 127 L, Potassium 3.8, Chloride 95 L, Carbon Dioxide 20.7 L, Anion Gap 12, BUN 12, Creatinine 0.83, Estim Creat Clear Calc 66.37, Est GFR (MDRD) Non-Af 89, BUN/Creatinine Ratio 14.5, Glucose 116 H, Calcium 8.8, Phosphorus 3.0, Magnesium 1.9, Total Bilirubin 8.06 H, AST 121 H, ALT 148 H, Alkaline Phosphatase 483 H, Total Protein 6.0, Albumin 3.5, Globulin 2.5, Albumin/Globulin Ratio 1.4 Radiography Diagnostic Testing: Radiology Impression Paracentesis Ultrasound 02/11/25 02:27 IMPRESSION: Dark yellow fluid noted within the right lower quadrant, large in volume with 3.7 L fluid removed. Reading Location: [facility] [address] Physical Exam Narrative GENERAL: cooperative HEENT: Atraumatic; normocephalic EYES; icteric, Normal Conjunctiva NECK; supple, normal thyroid, RESPIRATORY: Diminished to auscultation CARDIOVASCULAR: Regular S1 S2, GI: Abdomen distended and firm : No Renal angle tenderness; EXTREMITIES: edema, no clubbing, MUSCULOSKELETAL: no muscle wasting NEURO: Awake; no lateralizing signs. SKIN: No Rash PSYCH; Flat affect Assessment & Plan Assessment/Plan (1) Acute liver failure: (2) Ascites: (3) Metastasis to liver: PLAN: Plan Patient is an 79-year-old gentleman with history of colon cancer with liver mets who presented to the emergency department with abdominal distention fatigue and anorexia. Imaging studies demonstrated ascites admitted to a monitored bed for subsequent management 1. Marked malignant ascites ? Secondary to patient colon cancer with mets to the liver. Patient has been admitted to monitored bed and order was given for patient to undergo therapeutic paracentesis ? 02/12/2025Patient underwent paracentesis with dark yellow fluid noted within the right lower quadrant, large in volume with 3.7 L fluid removed on 02/11/2025 2. Colon cancer with with liver, intra-abdominal, probably thoracic lymph node metastases. Patient is status post laparoscopic right hemicolectomy April 2024. Patient was noted to have suboptimal performance to go through systemic chemotherapy referral was subsequently made to the hospital service as outpatient by patient's oncologist ? 02/12/2025 plan is for patient to be evaluated by hospice prior to discharge 3. Hyponatremia ? Multifactorial including possible SIADH from patient malignancy as well as secondary to fluid overload. Do expect improvement with diuresis 4. Hypertension ? Blood pressure controlled, home medications continued with dose adjustment as needed 5. Anemia ? Secondary to chronic disorder monitoring H&H and transfuse if patient becomes symptomatic or hemoglobin falls below 7 6.DVT prophylaxis ? Plan is to initiate subcu heparin following patient paracentesis Time spent in the patient's overall evaluation,decision-making process, review of diagnostic data, adjustment of management, discussion with other providers, nursing nursing and ancillary staff involved in patient's care documentation, 35 Minutes Charges/Coding Visit Charges Inpatient E&M: 37528 Subs Hosp L2
--- NOTE | 2025-02-12 08:15 | DS.PCM_ITS ---
Providers Date of Admission: 02/11/25 Date of Discharge: 02/12/25 Primary Care Physician: MARYAM Guerra Consultations 02/11/25 04:27 Consult: Hospice / Palliative Care Routine Consulting Provider: [facility] Reason for Consult: impending liver failure due to liver mets EMERGENT Consult: No MD Notified: Yes Date Notified: 02/11/25 Time Notified: 02:26 Method of Notification: Verbal Reason For Visit: 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S Diagnosis Discharge Diagnosis (1) Acute liver failure: Status: Acute Code(s): K72.00 - Acute and subacute hepatic failure without coma (2) Ascites: Status: Acute Code(s): R18.8 - Other ascites (3) Metastasis to liver: Status: Chronic Code(s): C78.7 - Secondary malignant neoplasm of liver and intrahepatic bile duct Plan Patient is an 79-year-old gentleman with history of colon cancer with liver mets who presented to the emergency department with abdominal distention fatigue and anorexia. Imaging studies demonstrated ascites admitted to a monitored bed for subsequent management 1. Marked malignant ascites ? Secondary to patient colon cancer with mets to the liver. Patient has been admitted to monitored bed and order was given for patient to undergo therapeutic paracentesis ? 02/12/2025Patient underwent paracentesis with dark yellow fluid noted within the right lower quadrant, large in volume with 3.7 L fluid removed on 02/11/2025 2. Colon cancer with with liver, intra-abdominal, probably thoracic lymph node metastases. Patient is status post laparoscopic right hemicolectomy April 2024. Patient was noted to have suboptimal performance to go through systemic chemotherapy referral was subsequently made to the hospital service as outpatient by patient's oncologist ? 02/12/2025 plan is for patient to be evaluated by hospice prior to discharge 3. Hyponatremia ? Multifactorial including possible SIADH from patient malignancy as well as secondary to fluid overload. Do expect improvement with diuresis 4. Hypertension ? Blood pressure controlled, home medications continued with dose adjustment as needed 5. Anemia ? Secondary to chronic disorder monitoring H&H and transfuse if patient becomes symptomatic or hemoglobin falls below 7 6.DVT prophylaxis ? Plan is to initiate subcu heparin following patient paracentesis Time spent in the patient's overall evaluation,decision-making process, review of diagnostic data, adjustment of management, discussion with other providers, nursing nursing and ancillary staff involved in patient's care documentation, 35 Minutes Medications at Discharge Home Medications amlodipine 5 mg tablet 5 mg PO DAILY HEART 05/16/24 clonidine HCl 0.1 mg tablet 0.1 mg PO DAILY PRN hbp 06/08/24 ferrous sulfate 325 mg (65 mg iron) tablet (Iron (ferrous sulfate)) 325 mg PO DAILY 30 days #60 tabs 06/10/24 metoprolol tartrate 50 mg tablet 25 mg PO QDAY Blood pressure/heart rat 10/17/24 oxycodone 5 mg tablet 5 mg PO Q4H PRN pain 7 days #30 tabs 01/15/25 Physical Exam Narrative GENERAL: cooperative HEENT: Atraumatic; normocephalic EYES; icteric, Normal Conjunctiva NECK; supple, normal thyroid, RESPIRATORY: Diminished to auscultation CARDIOVASCULAR: Regular S1 S2, GI: Abdomen distended and firm : No Renal angle tenderness; EXTREMITIES: edema, no clubbing, MUSCULOSKELETAL: no muscle wasting NEURO: Awake; no lateralizing signs. SKIN: No Rash PSYCH; Flat affect Weight / BMI Weight Weight: 71.7 kg Body Mass Index (BMI) 24.9 ABG / Lab / Microbiology Data 02/12/25 05:30 02/12/25 05:30 Laboratory: Laboratory Results - last 24 hr 02/12/25 05:30: WBC 6.4, RBC 3.44 L, Hgb 10.0 L, Hct 28.6 L, MCV 83.1, MCH 29.1, MCHC 35.0, RDW Std Deviation 47.7 H, RDW Coeff of Deepika 15.9 H, Plt Count 232, MPV 10.5, Immature Gran % (Auto) 0.300, Neut % (Auto) 72.4 H, Lymph % (Auto) 9.0 L, [place] % (Auto) 16.6 H, Eos % (Auto) 1.4, Baso % (Auto) 0.3, Absolute Neuts (auto) 4.7, Absolute Lymphs (auto) 0.58 L, Nucleated RBC % 0, Sodium 127 L, Potassium 3.8, Chloride 95 L, Carbon Dioxide 20.7 L, Anion Gap 12, BUN 12, Creatinine 0.83, Estim Creat Clear Calc 66.37, Est GFR (MDRD) Non-Af 89, BUN/Creatinine Ratio 14.5, Glucose 116 H, Calcium 8.8, Phosphorus 3.0, Magnesium 1.9, Total Bilirubin 8.06 H, AST 121 H, ALT 148 H, Alkaline Phosphatase 483 H, Total Protein 6.0, Albumin 3.5, Globulin 2.5, Albumin/Globulin Ratio 1.4 Radiography Diagnostic Testing: Radiology Impression Paracentesis Ultrasound 02/11/25 02:27 IMPRESSION: Dark yellow fluid noted within the right lower quadrant, large in volume with 3.7 L fluid removed. Reading Location: [facility] D/C Instructions Discharge Activity: Return to Normal Activity Call your doctor if you observe: Fever of 101 or Higher, Shortness of breath, Fainting spells and Chest pain DC O2, CPAP, BIPAP Needs Home O2 Discharge instructions: No Meaningful Use Info Meaningful Use Meaningful Use Diagnoses (Choose all that apply): None applicable Discharge Plan Admission Admit Date/Time: 02/11/25 02:24 Attending Provider: Darrel Galvan Primary Care Provider: Tami Omalley Consulting Providers: Ramirez Horne; Darrel Pearl; Elzbieta Sanford; Julissa Wetzel; Antonina Lizarraga; Nanci Islas NP; Latanya Snowden Discharge Orders/Prescriptions Prescriptions: No Action metoprolol tartrate 50 mg tablet 25 mg PO QDAY amlodipine 5 mg tablet 5 mg PO DAILY ferrous sulfate [Iron (ferrous sulfate)] 325 mg (65 mg iron) tablet 325 mg PO DAILY 30 Days Qty: 60 5RF clonidine HCl 0.1 mg tablet 0.1 mg PO DAILY PRN (Reason: hbp) Patient Comments: pt states he only takes if bp is over 200+ oxycodone 5 mg tablet 5 mg PO Q4H PRN (Reason: pain) 7 Days Qty: 30 0RF Referrals / Follow Up: Tami Omalley NP-C [Primary Care Provider] - Disposition Disposition (needs filled in before D/C Order can be placed): Home, Self Care Charges/Coding Visit Charges Inpatient E&M: 84722 Disch Hosp >30min
--- NOTE | 2025-02-13 10:12 | CASEMGMT ---
TC to [facility] who states that the pt initially declined their services yesterday. Subsequently, the pt was discharged home. TC to the pt at this time, no answer. Unable to leave VM. TC to the pt's , Radha. Radha states that the pt is experiencing SOB, swelling, and decreased appetite. Radha states that they have changed their minds and would like home hospice rather than palliative care. [facility] contact number provided. Radha also states that the pt has a f/u appt with his PCP today. Radha thanks this RN CM and requests this RN CM's number for any further questions/concerns. Number provided. Denies further needs now.
--- NOTE | 2025-02-13 10:12 | CASEMGMT ---
TC to [facility] who states that the pt initially declined their services yesterday. Subsequently, the pt was discharged home. TC to the pt at this time, no answer. Unable to leave VM. TC to the pt's , Radha. Radha states that the pt is experiencing SOB, swelling, and decreased appetite. Radha states that they have changed their minds and would like home hospice rather than palliative care. [facility] contact number provided. Radha also states that the pt has a f/u appt with his PCP today. Radha thanks this RN CM and requests this RN CM's number for any further questions/concerns. Number provided. Denies further needs now.
== END 2025-02-12 13:24 | disposition home or self-care (01) | DRG 442 ==
LOC: ED 02-11 02:48 → ICU 02-11 03:26
PROVIDERS: Admitting Provider Hospitalist; Emergency Provider Emergency Medicine; PCP Nurse Practitioner Family; Visit Provider Internal Medicine
DX: K72.00 Acute and subacute hepatic failure without coma (principal); C78.7 Secondary malignant neoplasm of liver and intrahepatic bile duct; E87.1 Hypo-osmolality and hyponatremia; C18.9 Malignant neoplasm of colon, unspecified; R18.8 Other ascites; D50.9 Iron deficiency anemia, unspecified; I10 Essential (primary) hypertension; I25.10 Atherosclerotic heart disease of native coronary artery without angina pectoris; Z87.891 Personal history of nicotine dependence; Z98.52 Vasectomy status; Z86.73 Personal history of transient ischemic attack (TIA), and cerebral infarction without residual deficits; Z79.899 Other long term (current) drug therapy; Z90.49 Acquired absence of other specified parts of digestive tract; Z95.1 Presence of aortocoronary bypass graft
CPT/HCPCS: 49083; 71045; 74177; 80048; 80053; 80076; 81001; 82140; 83690; 83735; 84100; 85025; 85027; 85610; 85730; 97802; 99284; Q9967; A4216

== ENCOUNTER → 2025-02-14 | Outpatient (CLI) | payer SELFPAY ==
--- NOTE | 2025-02-14 08:57 | US_ITS ---
PROCEDURE: PARACENTESIS WITH US 02/14/2025 REASON FOR EXAM: DRAIN FLUID BUILDUP IN ABD TECHNIQUE: PARACENTESIS WITH US The procedure as well as the benefits and possible complications including infection and bleeding were explained to the patient. Informed consent was obtained. The skin overlying the right lower quadrant was prepped and draped in the usual sterile fashion. Following local anesthetic application, a 5 into the right lower quadrant. 1250 mL of latasha colored fluid was aspirated. The patient tolerated the procedure well. COMPARISON: Prior study dated February 11, 2025. FINDINGS: Successful paracentesis with removal of 1250 mL of latasha colored fluid. US/Paracentesis with US IMPRESSION: Successful paracentesis with removal of 1250 mL of latasha colored fluid. The patient tolerated the procedure well. Reading Location: [place] [id number]
[2025-02-14 09:09] VITALS: BP 182/74; PULSE 66; RESP 16; TEMP 36.4; O2SAT 100
[2025-02-14] MEDS: Lidocaine 2% (20 ml mdv) 20 ML Vial INFILT (09:10)
[2025-02-14 09:15] VITALS: BP 173/72; PULSE 63; RESP 16; O2SAT 100
[2025-02-14 09:30] VITALS: BP 179/71; PULSE 63; RESP 16; O2SAT 99
== END | disposition home or self-care (01) ==
PROVIDERS: PCP Nurse Practitioner Family; Referring Provider Nurse Practitioner Family; Visit Provider Nurse Practitioner Family
DX: C18.2 Malignant neoplasm of ascending colon (principal); C77.2 Secondary and unspecified malignant neoplasm of intra-abdominal lymph nodes
CPT/HCPCS: 49083

== ENCOUNTER → 2025-02-19 | Outpatient (CLI) | payer OTHER, SELFPAY ==
--- NOTE | 2025-02-19 13:03 | US_ITS ---
PROCEDURE: ABDOMEN LIMITED 02/19/2025 REASON FOR EXAM: MALIGNANT ASCITES TECHNIQUE: ABDOMEN LIMITED COMPARISON: Prior study dated February 14, 2025. FINDINGS: Patient was scheduled for paracentesis. The paracentesis was not performed. The patient was scheduled for catheter placement on . US/Abdomen Limited IMPRESSION: Paracentesis not performed since the patient will be getting a abdominal draina ge on . Reading Location: [facility]
--- NOTE | 2025-02-19 13:31 | PCM.PN.BLA ---
Progress Note Mr. Raymond is seen today in radiology for a therapeutic paracentesis. An ultrasonographic survey was conducted of the abdomen. There was a small amount of ascitic fluid in the lower abdomen that could potentially be drained; however, patient has plans to have an abdominal Pleurx catheter placed this week. Patient has an appointment with surgery this afternoon to discuss. My concern is that if I drain his ascites today, they would not be able to safely place the drainage catheter. Patient is agreeable to defer paracentesis today until after general surgery consultation. If drainage catheter is unable to be placed this week or if surgery deems it okay to proceed, then patient may return to radiology for paracentesis.
--- OUTSIDE RECORDS SUMMARY | 2025-02-19 20:45 | XMS RPT_ITS | CCD ---
Author Organization 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 Papi Hernandez MD Attending Provider Rafa COMPLEX DIRECTOR-C, Selam Attending Provider Shahram COMPLEX DIRECTOR-C, Mariela Attending Provider Darin COMPLEX DIRECTOR-CMalinda Attending Provider Darin COMPLEX DIRECTOR-C, Malinda Morillo Referring Provider Dr. Papi Hernandez MD Referring Provider Dr. Jerry Hightower DO Emergency Provider Dr. Jerry Hightower DO Attending Provider Shahram COMPLEX DIRECTOR-C, [place] Primary Care Provider Shahram COMPLEX DIRECTOR-C, Mariela Referring Provider Mary DAVIS, Dr. Turpin Attending Provider Vijay FARLEY, Dr. Terry Emergency Provider de Tommy DO, Dr. Rojo Admit Provider Unavail able de Tommy DO, Dr. Rojo Attending Provider Unav ailable de Tommy DO, Dr. Rojo Other Provider Unavail able Santappmarysol FARLEY, Dr. Hubbard Attending Provider Juany FARLEY, Dr. Hubbard Other Provider Friend , Dr. Chapman Attending Provider Shahram COMPLEX DIRECTOR-C, [place] Primary Care Provider Shahram COMPLEX DIRECTOR-C, Mariela Referring Provider Juany FARLEY, Dr. Hubbard [...] Dr. Neville Jang DO Other Provider Shahram COMPLEX DIRECTOR-C, [place] Primary Care Provider Shahram COMPLEX DIRECTOR-C, Mariela Referring Provider Mary DAVIS, Dr. Turpin Attending Provider Shahram COMPLEX DIRECTOR-C, Mariela Attending Provider Roof COMPLEX DIRECTOR-C, Malinda Morillo Attending Provider Roof COMPLEX DIRECTOR-C, Malinda Morillo Referring Provider Mary DAVIS, Dr. [...] Dr. Brenda Araujo MD Referring Provider Shahram COMPLEX DIRECTOR-C, Mariela Primary Care Provider Shahram COMPLEX DIRECTOR-C, Mariela Referring Provider Dr. Papi Hernandez MD Attending Provider Gayle DAVIS, Dr. Gutierrez Attending Provider Gayle DAVIS, Dr. Gutierrez Referring Provider Shahram COMPLEX DIRECTOR-C, [place] Primary Care Provider Shahram COMPLEX DIRECTOR-C, Mariela Referring Provider Dr. Papi Hernandez MD Attending Provider Shahram COMPLEX DIRECTOR-C, [place] Primary Care Provider Neville Islas DO Primary Care Provider Darrel Pringle Attending Unavailable Julissa Yap Referring Unavailable Darrel Pringle Attending Unavailable Darrel Pringle Referring Unavailable Darrel Pringle Attending Unavailable Julissa Yap Referring Unavailable Darrel Pringle Attending Unavailable Julissa Yap Referring Unavailable Darrel Pringle Attending Unavailable Darrel Pringle Referring Unavailable Darrel Pringle Attending Unavailable Darrel Pringle Referring Unavailable Mark DAVIS, Dr. Campbell Other Provider Dr. Neville Islas DO Attending Provider Coleen FARLEY, Dr. Guzmán Admit Provider Dr. Ramirez Horne DO Attending Provider Dr. Ramirez Horne DO Other Provider Dr. Darrel Galvan MD Attending Provider Unavaila ble Dr. Darrel Pearl DO Other Provider Dr. Elzbieta Sanford MD Other Provider Rashard DAVIS, Dr. Costa Other Provider Elham COMPLEX DIRECTOR-C, Antonina Other Provider Unavailabl e Roshan COMPLEX DIRECTOR-C, Nanci Other Provider Latanya Rice Other Provider Mandy DAVIS, Dr. Rojo Other Provider Unavailable Shahram COMPLEX DIRECTOR-C, Mariela Attending Provider Unavailable Primary Care Provider Unavailabl e Shahram, Mariela Primary Care Unavailable Jerry Hightower Attending Unavailable Tha Araujoour Referring Unavailable Brenda Araujo Attending Unavailable Shahram, Mariela Primary Care Unavailable Neville Islas Attending Unavailable Shahram, Mariela Primary Care Unavailable Ramirez Horne Consulting Unavailable Ramirez Horne Admitting Unavailable Darrel Galvan Attending Unavailable Shahram, Marieal Primary Care Unavailable Darrel Pearl Consulting Unavailable Elzbieta Sanford Consulting Unavailable Julissa Wetzel Consulting Unavailable Antonina Lizarraga Consulting Unavailable Roshan COMPLEX DIRECTOR, Nanci Consulting Unavailable MascLatanya rose Consulting Unavailable Shahram, Mariela Primary Care Unavailable Darrel Carpenter Admitting Unavailable Darrel Carpenter Consulting Unavailable Stevie Harrington Attending Unavailable Santana Francois Consulting Unavailable FriendAri Attending Unavailable Shahram, Mariela Primary Care Unavailable Darrel Carpenter Consulting Unavailable Darrel Carpenter Admitting Unavailable Stevie Harrington Referring Unavailable Santana Francois Consulting Unavailable Stevie Harrington Consulting Unavailable Lorraine Melendez Attending Unavailable Stevie Harrington Attending Unavailable Shahram, Mariela Attending Unavailable Shahram, Mariela Referring Unavailable Shahram, Mariela Primary Care Unavailable Du Thomas Consulting Unavailable Shahram, Mariela Primary Care Unavailable Sunny Mancia Attending Unavailable Sunny Mancia Referring Unavailable Nicho Cantor Referring Unavailable Nicho Cantor Attending Unavailable Shahram, Mariela Primary Care Unavailable Roof COMPLEX DIRECTOR, Malinda H Referring Unavailable Roof COMPLEX DIRECTOR, Malinda H Attending Unavailable Shahram, Mariela Primary Care Unavailable Shahrma, Mariela Primary Care Unavailable Papi Hernandez Attending Unavailable Papi Hernandez Referring Unavailable ShahramHortenciaMariela Attending Unavailable Sahhram, Mariela Primary Care Unavailable Shahram, Mariela Referring Unavailable Jerry Hightower Attending Unavailable Shahram, Mariela Primary Care Unavailable Shahram, Mariela Primary Care Unavailable Papi Hernandez Attending Unavailable Papi Hernandez Referring Unavailable Brenda Araujo Referring Unavailable Brenda Araujo Attending Unavailable Shahram, Mariela Primary Care Unavailable Ari Silvestre Attending Unavailable Shahram, Mariela Primary Care Unavailable Stevie Harrington Referring Unavailable ProsperDanette Referring Unavailable ProsperDanette andersen Attending Unavailable Shahram, Mariela Primary Care Unavailable Du Thomas Admitting Unavailable Du Thomas Referring Unavailable Eliz Mitchell Attending Unavailable Aubrey, Keo Consulting Unavailable Shahram, [place] Primary Care Unavailable Du Thomas Consulting Unavailable Shahram, Mariela Attending Unavailable Shahram, [place] Primary Care Unavailable Shahram, Mariela Referring Unavailable Kelvin Schrader Consulting Unavailable Kelvin Schrader F Referring Unavailable Kelvin Schrader F Admitting Unavailable Neville Jang Attending Unavailable Shahram, [place] Primary Care Unavailable Shahram, [place] Primary Care Unavailable Darrel Carpenter Consulting Unavailable Darrel Carpenter Admitting Unavailable Stevie Harrington Attending Unavailable Du Thomas Referring Unavailable Du Thomas Attending Unavailable Du Thomas Admitting Unavailable Shahram, [place] Primary Care Unavailable Aubrey, Keo Consulting Unavailable Du Thomas Consulting Unavailable Ari Silvestre Attending Unavailable Shahram, [place] Primary Care Unavailable Darrel Carpenter Consulting Unavailable Darrel Carpenter Admitting Unavailable Stevie Harrington Referring Unavailable Stevie Harrington Consulting Unavailable Stevie Harrington Attending Unavailable Ramirez Horne Admitting Unavailable Ramirez Horne Consulting Unavailable Darrel Galvan Attending Unavailable Shahram, [place] Primary Care Unavailable Darrel Pearl Consulting Unavailable Elzbieta Sanford Consulting Unavailable Julissa Wetzel Consulting Unavailable Antonina Lizarraga Consulting Unavailable Roshan KEARNEY, aNnci Consulting Unavailable Latanya Snowden Consulting Unavailable Darrel Galvan Consulting Unavailable Du Thomas Attending Unavailable Darrel Carpenter Attending Unavailable Shahram, [place] Primary Care Unavailable Sunny Mancia Consulting Unavailable Sunny Mancia Attending Unavailable Brown, Sunny Referring Unavailable Mark, Adrian Consulting Unavailable Mark Brockton Attending Unavailable Mark, [place] Referring Unavailable Shahram, [place] Primary Care Unavailable Du Thomas Consulting Unavailable Du Thomas Attending Unavailable Shahram, [place] Primary Care Unavailable Juan Jose Manciak Referring Unavailable Juan Jose Manciak Consulting Unavailable Du Thomas Attending Unavailable Lucy Polanco Attending Unavailable Lucy Polanco Admitting Unavailable Lucy Polanco Consulting Unavailable Shahram, [place] Primary Care Unavailable Lucy Polanco Admitting Unavailable Lucy Polanco Consulting Unavailable Shahram, [place] Primary Care Unavailable Mike Story Attending Unavailable Mike Story Consulting Unavailable Shahram, Mariela Referring Unavailable Shahram, [place] Primary Care Unavailable Sunny Mancia Attending Unavailable Shahram, Mariela Primary Care Unavailable Roof COMPLEX DIRECTOR, Malinda Morillo Attending Unavailable Shahram, Mariela Referring Unavailable Du Thomas Attending Unavailable Shahram, Mariela Referring Unavailable Shahram, Mariela Primary Care Unavailable Du Thomas Admitting Unavailable Du Thomas Attending Unavailable Du Thomas Referring Unavailable Shahram, Mariela Primary Care Unavailable Keo Burgos Consulting Unavailable Du Thomas Attending Unavailable Shahram, Mariela Referring Unavailable Shahram, Mariela Primary Care Unavailable Sunny Mancia Consulting Unavailable Roof COMPLEX DIRECTOR, Malinda H Referring Unavailable Roof COMPLEX DIRECTOR, Malinda Morillo Attending Unavailable Shahram, Mariela Primary Care Unavailable Adrian Flores Attending Unavailable Shahram, Mariela Primary Care Unavailable MarkSanderBrockton Referring Unavailable Shahram, Mariela Attending Unavailable Shahram, Mariela Primary Care Unavailable Papi Hernandez Attending Unavailable Papi Hernandez Referring Unavailable Shahram, Mariela Primary Care Unavailable Lucy Polanco Admitting Unavailable Shahram, Mariela Primary Care Unavailable Lucy Polanco Consulting Unavailable Mike Story Attending Unavailable Kelvin Schrader Consulting Unavailable Vernon Schraderolas F Attending Unavailable Asunciononis Kelvin F Referring Unavailable Asunciononis Kelvin F Admitting Unavailable Shahram, Mariela Primary Care Unavailable Shahram, Mariela Referring Unavailable Adrian Flores Attending Unavailable Shahram, Mariela Primary Care Unavailable Shahram, Mariela Primary Care Unavailable Papi Hernandez Attending Unavailable Shahram, Mariela Referring Unavailable Shahram, Mariela Primary Care Unavailable Selam Craig NP Attending Unavailable Shahram, Mariela Referring Unavailable Shahram, Mariela Primary Care Unavailable Papi Hernandez Attending Unavailable Shahram, Mariela Referring Unavailable Brenda Araujo Attending Unavailable Shahram, Mariela Primary Care Unavailable Shahram, Mariela Referring Unavailable Ari Silvestre Attending Unavailable Shahram, Mariela Primary Care Unavailable Shahram, Mariela Referring Unavailable Shahram, Mariela Referring Unavailable Shahram, Mariela Primary Care Unavailable Papi Hernandez Attending Unavailable Du Thomas Attending Unavailable Shahram, Mariela Referring Unavailable Shahram, Mariela Primary Care Unavailable Du Thomas Attending Unavailable Shahram, Mariela Referring Unavailable Shahram, Mariela Primary Care Unavailable Shahram, Mariela Referring Unavailable Papi Hernandez Attending Unavailable Shahram, Mariela Primary Care Unavailable Ari Silvestre Attending Unavailable Tereletsky, Neville Consulting Unavailable Neville Jang Attending Unavailable Ramirez Horne Attending Unavailable Darrel Carpenter Attending Unavailable Shahram, Mariela Primary Care Unavailable MarkAdrian Attending Unavailable Mark, Adrian Referring Unavailable Shahram, Mariela Primary Care Unavailable Sunny Mancia Attending Unavailable Brown, Sunny Referring Unavailable Makr, Adrian Attending Unavailable Shahram, Mariela Primary Care Unavailable Shahram, Mariela Primary Care Unavailable Len Staton Attending Unavailabl e Shahram, Mariela Primary Care Unavailable Papi Hernandez Attending Unavailable Shahram, Mariela Referring Unavailable Isckarus, Thaour Attending Unavailable Shahram, Mariela Primary Care Unavailable Shahram, Mariela Referring Unavailable Julissa Wetzel Attending Unavailable Julissa Wetzel Referring Unavailable Shahram, Mariela Primary Care Unavailable Isckarus, Mansour Referring Unavailable Roof COMPLEX DIRECTORMalinda Attending Unavailable Shahram, Mariela Primary Care Unavailable Shahram COMPLEX DIRECTOR-C, Mariela Primary Care Provider Shahram COMPLEX DIRECTOR-C, Mariela Referring Provider [phone] Darin COMPLEX DIRECTOR-CMalinda Attending Provider Darin COMPLEX DIRECTOR-CMalinda Referring Provider [phone] Rashard DAVIS, Dr. Costa Attending Provider Rashard DAVIS, Dr. Costa Referring Provider Marquise COMPLEX DIRECTOR-CJackelyn Attending Provider Sakshi DAVIS, Dr. Torre Attending Provider [phone] Allergies Allergy Classification Reported Allergen(s) Allergy Type Date of Onset Reaction(s) Facility (3 sources) fentaNYL Drug Allergy 5 Low blood pressure [facility] (1 source) cloNIDine Drug Allergy 4 [facility] (1 source) fentaNYL Drug Allergy 5 [facility] (1 source) Wheat preparation Drug Allergy 4 [facility] Medications Current Medications Medication Drug Class(es) Dates Sig (Normalized) Sig (Original) 4 ml bevacizumab 25 mg/ml injection (1 source) Vascular Endothelial Growth Factor Inhibitor Start: 01-05-2023 Avastin 25 mg/mL intravenous solution Direct Patient Administration Only - Active cloNIDine hydrochloride 0.1 mg oral tablet (16 sources) Central alpha-2 Adrenergic Agonist Start: 06-08-2024 ferrous sulfate 325 mg oral tablet (17 sources) Start: 06-10-2024 take 1 tablet by mouth once daily Ferrous Sulfate (Iron (Ferrous Sulfate)) 325 mg (65 mg iron) tablet Active 325 mg PO DAILY 60 June 10, 2024 3:15pm Start: 05-16-2024 End: 06-10-2024 take 1 tablet by mouth twice daily FeroSul 325 (65 Fe) MG tablet Take 1 tablet by mouth 2 times daily. 05/16/2024 Active metoprolol tartrate 50 mg or al tablet (20 sources) beta-Adrenergic Arianna Start: 10-17-2024 Start: 09-04-2024 take 1 tablet by sabra th once daily metoprolol tartrate (Lopressor) 50 MG tablet Take 50 mg by mouth daily. 09/04/2024 Active Start: 04-23-2024 End: 10-17-2024 Start: 04-23-2024 End: [...] Take 1.5 tablets by mouth twice daily. (16 sources) Start: 06-10-2024 Start: 05-16-2024 End: 06-10-2024 Completed/Discontinued Medications Medication Drug Class(es) Dates Sig (Normalized) Sig (Original) acetaminophen 500 mg oral tablet (16 sources) Start: 05-01-2024 End: 05-16-2024 amLODIPine 5 [...] ml enoxaparin sodium 100 mg/ml prefilled syringe (16 sources) Low Molecular Weight Heparin Start: 05-01-2024 [...] tablets; neomycin sulfate 500 mg oral tablet (16 sources) Aminoglycoside Antibacterial Start: 04-20-2024 End: 05-01-2024 [...] Active simethicone 80 mg chewable t ablet (12 sources) Start: 11-07-2024 End: 11-18-2024 Start: 11-07-2024 End: 11-18-2024 take 1 tablet by mouth at bedtime Simethicone 80 mg Tablet,Chewable Discontinued 80 mg PO AFTER MEALS AND AT BEDTIME 0 November 07, 2024 12:00am November 18, 2024 1:13pm sodium chloride 1000 mg oral tablet (16 sources) Start: 05-01-2024 End: 06-08-2024 Problems Active Problems Problem Classification Problem Date Documented Date Episodic/Chronic Abdominal pain (20 sources) Right upper quadrant pain; Translations: [Right upper quadrant pain] Onset: 010 10-03-2009 Episodic Acute posthemorrhagic anemia (17 sources) Acute posthemorrhagic anemia; Translations: [Acute posthemorrhagic anemia] Onset: 024 04-23-2024 Episodic Administrative/soci al admission (20 sources) Discharge status; Translations: [Encounter for administrative examinations, unspecified] Onset: 019 07-18-2019 Episodic Blindness and vision defects (17 sources) Visual disturbance; Translations: [Unspecified visual disturbance] 12-11-2023 Episodic Cancer of colon (20 sources) Malignant neoplasm of colon, unspecified; Translations: [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] Onset: 025 08-08-2024 Chronic Comment on above: Right colon [...] Chronic Coronary atherosclerosis and other heart disease (20 sources) Coronary atherosclerosis; Translations: [Atherosclerotic heart disease of [place] coronary artery without angina pectoris] Onset: 019 07-23-2019 Chronic Coronary atherosclerosis and other heart disease (2 sources) Presence of aortocoronary bypass graft; Translations: [Presence of aortocoronary bypass graft] Onset: Episodic Crushing injury or internal injury (16 sources) Liver hematoma; Translations: [Contusion of liver, initial encounter] 06-08-2024 Episodic Deficiency and other anemia (20 sources) Anemia due to blood loss; Translations: [Iron deficiency anemia secondary to blood loss (chronic)] 11-18-2024 Chronic Deficiency and other anemia (1 source) Iron deficiency anemia secondary to blood loss (chronic); Translations: [Iron deficiency anemia secondary to blood loss (chronic)] Onset: 025 Chronic Deficiency and other anemia (20 sources) Anemia; Translations: [Anemia, unspecified] 04-23-2024 Episodic Diverticulosis and diverticulitis (12 sources) Diverticular disease; Translations: [Diverticulosis of intestine, [...] sources) Hyponatremia; Translations: [Hypo-osmolality and hyponatremia] Onset: 025 11-16-2016 Episodic Gastrointestinal hemorrhage (20 sources) Acute lower gastrointestinal hemorrhage; Translations: [Gastrointestinal hemorrhage, unspecified] Onset: 025 04-23-2024 Episodic Genitourinary symptoms and ill-defined conditions (1 source) Dysuria; Translations: [Dysuria] Onset: Episodic Heart valve disorders (20 sources) Aortic valve stenosis; Translations: [Nonrheumatic aortic (valve) stenosis] Onset: 025 10-17-2024 Chronic Hypertension with complications and secondary hypertension (18 sources) Hypertensive emergency; Translations: [Hypertensive emergency] 08-23-2023 Chronic Lymphadenitis (20 sources) Mediastinal lymphadenopathy; Translations: [Localized enlarged lymph nodes] Onset: 025 06-12-2024 Episodic Other circulatory disease (20 sources) History of cerebrovascular accident; Translations: [Personal history of transient ischemic attack (TIA), and cerebral infarction without residual deficits] Onset: 019 07-23-2019 Episodic Other gastrointestinal disorders (2 sources) Burping; Translations: [Eructation] 01-13-2010 Episodic Other gastrointestinal disorders (2 sources) Abdominal bloating; Translations: [Abdominal distension (gaseous)] 01-13-2010 Episodic Other gastrointestinal disorders (16 sources) Mass of colon; Translations: [Other specified diseases of intestine] 05-10-2024 Episodic Other gastrointestinal disorders (11 sources) Hemorrhagic diarrhea ; Translations: [Diarrhea, unspecified] 11-18-2024 Episodic Other gastrointestinal disorders (7 sources) Ascites; Translations: [Other ascites] 02-11-2025 Episodic Other gastrointestinal disorders (1 source) Other ascites; Translations: [Other ascites] Onset: Episodic Other gastrointestinal disorders (1 source) Other fecal abnormalities; Translations: [Other fecal abnormalities] Onset: Episodic Other liver diseases (7 sources) Acute hepatic failure; Translations: [Acute and subacute hepatic failure without coma] 02-11-2025 Episodic Other liver diseases (2 sources) Acute and subacute hepatic failure without coma; Translations: [Acute and subacute hepatic failure without coma] Onset: Episodic Other nutritional; endocrine; and metabolic disorders (16 sources) Body mass index 25-29 - overweight; Translations: [Overweight] 04-23-2024 Episodic Other screening for suspected conditions (not mental disorders or infectious disease) (16 sources) Imaging result abnormal; Translations: [Abnormal findings on diagnostic imaging of other specified body structures] 05-31-2024 Chronic Other screening for suspected conditions (not mental disorders or infectious disease) (20 sources) Raised cardiac enzyme or marker; Translations: [Other specified abnormal findings of blood chemistry] Onset: 024 08-15-2023 Episodic Peripheral and visceral atherosclerosis (17 sources) Atherosclerosis of artery of lower limb; Translations: [Atherosclerosis of [place] arteries of extremities with intermittent claudication, bilateral legs] Onset: 024 04-23-2024 Chronic Comment on above: Arterial study 4: R LEONARD 0.84 with biphasic waveforms; L LEONARD 0.68 with bi/monophasic waveformsCTA 02/03/24: Residual codes; unclassified (19 sources) Tobacco use and exposure - finding; Translations: [Tobacco use] 08-16-2013 Episodic Residual codes; unclassified (18 sources) Altered mental status; Translations: [Altered mental status, unspecified] 08-15-2023 Episodic Residual codes; unclassified (1 source) Altered mental status, unspecified; Translations: [Altered mental status] 08-15-2023 Episodic Residual codes; unclassified (16 sources) Past history of procedure; Translations: [Other specified postprocedural states] 06-08-2024 Episodic Residual codes; unclassified (16 sources) History of partial resection of colon; Translations: [Acquired absence of other specified parts of digestive tract] 05-10-2024 Episodic Comment on above: 9/28/24.Patient has recovered well and is well-healing. Overall [...] now completed this regimen. 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; Translations: [Retinal hemorrhage] Onset: Resolve d: 09-01-2022 Chronic Secondary malignancies (16 sources) Secondary malignant neoplastic disease; Translations: [Secondary malignant neoplasm of unspecified site] 10-24-2024 Chronic Secondary malignancies (20 sources) Secondary malignant neoplasm of liver; Translations: [Secondary malignant neoplasm of liver and intrahepatic bile duct] 11-28-2024 Chronic Secondary malignancies (20 sources) Regional lymph node metastasis present ; Translations: [Secondary and unspecified malignant neoplasm of lymph node, unspecified] 11-28-2024 Chronic Secondary malignancies (1 source) Malignant ascites; Translations: [Malignant ascites] Onset: Chronic Secondary malignancies (2 sources) Secondary and unspecified malignant neoplasm of intra-abdominal lymph nodes; Translations: [Secondary and unspecified malignant neoplasm of intra-abdominal lymph nodes] Onset: Chronic Secondary malignancies (2 sources) Secondary malignant neoplasm of liver and intrahepatic bile duct; Translations: [Secondary malignant neoplasm of liver and intrahepatic bile duct] Onset: Chronic Secondary malignancies (1 source) Secondary and unspecified malignant neoplasm of lymph node, unspecified; Translations: [Secondary and unspecified malignant neoplasm of lymph node, unspecified] Onset: Chronic Syncope (18 sources) Syncope; Translations: [Syncope and collapse] Onset: [...] you to confirm an appointment time Unclassified (4 sources) 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 Unclassified (4 sources) Malignant neoplasm metastatic to liver Unclassified (4 sources) Malignant neoplasm of colon Unclassified (1 source) Severe aortic stenosis 02-14-2025 Unclassified (1 source) Patient's noncompliance with other medical treatment and regimen due to unspecified reason; Translations: [Patient's noncompliance with other medical treatment and regimen due to unspecified reason] Onset: 025 Past or Other Problems Problem Classification Problem Date Documented Da te Episodic/Chronic Deficiency and other anemia (2 sources) Anemia, unspecified; Translations: [Anemia, unspecified] Onset: 05-16-2024 Episodic Diabetes mellitus without complication (1 source) [...] Test Name Value Interpretation Reference Range Facility MR/PAT.Jaylyn 02-18-2025 MR/PAT.LATONYA [facility] 36on 02-14-2025 36 Chart made and COMPLEX DIRECTOR ondina herr mailed Normal [facility] CBC W/Diff, Automatedon 07-1 Absolute Neut Normal 2.0-7.7 [facility] Comment on above: Result Comment: Canc elled via OM: Order cancelled - Patient discharged Performed By: #### L 500.4050, L100.0100 ####[facility] [address] [place], [address] HCT Normal 40-54 [facility] Comment on above: Result Comment: Canc elled via OM: Order cancelled - Patient discharged Performed By: #### L 500.4050, L100.0100 ####[facility] [address] [place], [address] HGB Normal 13.0-16.5 [facility] Comment on above: Result Comment: Canc elled via OM: Order cancelled - Patient discharged Performed By: #### L 500.4050, L100.0100 ####[facility] [address] [place], [address] MCH Normal 27.0-32.0 [facility] Comment on above: Result Comment: Canc elled via OM: Order cancelled - Patient discharged Performed By: #### L 500.4050, L100.0100 ####[facility] [address] [place], [address] MCHC Normal 32-36 [facility] Comment on above: Result Comment: Canc elled via OM: Order cancelled - Patient discharged Performed By: #### L 500.4050, L100.0100 ####[facility] [address] [place], [address] MCV Normal 80-94 [facility] Comment on above: Result Comment: Canc elled via OM: Order cancelled - Patient discharged Performed By: #### L 500.4050, L100.0100 ####[facility] [address] [place], [address] NEUT% Normal 47-70 [facility] Comment on above: Result Comment: Canc elled via OM: Order cancelled - Patient discharged Performed By: #### L 500.4050, L100.0100 ####[facility] [address] [place], [address] PLT Normal 150-450 [facility] Comment on above: Result Comment: Canc elled via OM: Order cancelled - Patient discharged Performed By: #### L 500.4050, L100.0100 ####[facility] [address] [place], [address] RBC Normal 4.6-6.2 [facility] Comment on above: Result Comment: Canc elled via OM: Order cancelled - Patient discharged Performed By: #### L 500.4050, L100.0100 ####[facility] [address] [place], [address] RDW CV Normal 11.6-14.6 [facility] Comment on above: Result Comment: Canc elled via OM: Order cancelled - Patient discharged Performed By: #### L 500.4050, L100.0100 ####[facility] [address] [place], [address] RDW SD Normal 35.1-43.9 [facility] Comment on above: Result Comment: Canc elled via OM: Order cancelled - Patient discharged Performed By: #### L 500.4050, L100.0100 ####[facility] [address] [place], [address] WBC Normal 4.4-11.0 [facility] Comment on above: Result Comment: Canc elled via OM: Order cancelled - Patient discharged Performed By: #### L 500.4050, L100.0100 ####[facility] [address] [place], [address] Comprehensive Metabolic Prof ileliz 02-14-2025 ALB Normal 3.4-4.8 [facility] Comment on above: Result Comment: Canc elled via OM: Order cancelled - Patient discharged Performed By: #### L 500.4050, L100.0100 ####[facility] [address] [place], [address] ALK PHOS Normal 40-129 [facility] Comment on above: Result Comment: Canc elled via OM: Order cancelled - Patient discharged Performed By: #### L 500.4050, L100.0100 ####[facility] [address] [place], [address] ALT Normal <=46 [facility] Comment on above: Result Comment: Canc elled via OM: Order cancelled - Patient discharged Performed By: #### L 500.4050, L100.0100 ####[facility] [address] [place], [address] AST Normal <=37 [facility] Comment on above: Result Comment: Canc elled via OM: Order cancelled - Patient discharged Performed By: #### L 500.4050, L100.0100 ####[facility] [address] [place], [address] BUN Normal 4-19 [facility] Comment on above: Result Comment: Canc elled via OM: Order cancelled - Patient discharged Performed By: #### L 500.4050, L100.0100 ####[facility] [address] [place], [address] BUN/CRE Normal 10-20 [facility] Comment on above: Result Comment: Canc elled via OM: Order cancelled - Patient discharged Performed By: #### L 500.4050, L100.0100 ####[facility] [address] [place], [address] Calcium Normal 7.6-11.0 [facility] Comment on above: Result Comment: Canc elled via OM: Order cancelled - Patient discharged Performed By: #### L 500.4050, L100.0100 ####[facility] [address] [place], [address] CL Normal 98-108 [facility] Comment on above: Result Comment: Canc elled via OM: Order cancelled - Patient discharged Performed By: #### L 500.4050, L100.0100 ####[facility] [address] [place], [address] CO2 Normal 21.0-32.0 [facility] Comment on above: Result Comment: Canc elled via OM: Order cancelled - Patient discharged Performed By: #### L 500.4050, L100.0100 ####[facility] [address] [place], [address] CREAT,SERUM Normal 0.70-1.20 [facility] Comment on above: Result Comment: Canc elled via OM: Order cancelled - Patient discharged Performed By: #### L 500.4050, L100.0100 ####[facility] [address] [place], [address] eGFR Normal >60 [facility] Comment on above: Result Comment: Canc elled via OM: Order cancelled - Patient discharged Performed By: #### L 500.4050, L100.0100 ####[facility] [address] [place], [address] GAP Normal 5-15 [facility] Comment on above: Result Comment: Canc elled via OM: Order cancelled - Patient discharged Performed By: #### L 500.4050, L100.0100 ####[facility] [address] [place], [address] GLU Normal 70-99 [facility] Comment on above: Result Comment: Canc elled via OM: Order cancelled - Patient discharged Performed By: #### L 500.4050, L100.0100 ####[facility] [address] [place], [address] Potassium Normal 3.3-5.1 [facility] Comment on above: Result Comment: Canc elled via OM: Order cancelled - Patient discharged Performed By: #### L 500.4050, L100.0100 ####[facility] [address] [place], [address] T BILI Normal 0.00-1.30 [facility] Comment on above: Result Comment: Canc elled via OM: Order cancelled - Patient discharged Performed By: #### L 500.4050, L100.0100 ####[facility] [address] [place], [address] T PROT Normal 5.9-8.4 [facility] Comment on above: Result Comment: Canc elled via OM: Order cancelled - Patient discharged Performed By: #### L 500.4050, L100.0100 ####[facility] [address] [place], [address] Comprehensive Metabolic Profil Normal 133-145 [facility] Comment on above: Result Comment: Canc elled via OM: Order cancelled - Patient discharged Performed By: #### L 500.4050, L100.0100 ####[facility] [address] [place], [address] Paracentesis with USon 02-14 Paracentesis with US Normal [facility] CBC W/Diff, Automatedon - Absolute Neut Normal 2.0-7.7 [facility] Comment on above: Result Comment: Canc elled via OM: Order cancelled - Patient discharged Performed By: #### L 500.4050, L100.0100 ####[facility] [address] [place], [address] HCT Normal 40-54 [facility] Comment on above: Result Comment: Canc elled via OM: Order cancelled - Patient discharged Performed By: #### L 500.4050, L100.0100 ####[facility] [address] [place], [address] HGB Normal 13.0-16.5 [facility] Comment on above: Result Comment: Canc elled via OM: Order cancelled - Patient discharged Performed By: #### L 500.4050, L100.0100 ####[facility] [address] [place], [address] MCH Normal 27.0-32.0 [facility] Comment on above: Result Comment: Canc elled via OM: Order cancelled - Patient discharged Performed By: #### L 500.4050, L100.0100 ####[facility] [address] [place], [address] MCHC Normal 32-36 [facility] Comment on above: Result Comment: Canc elled via OM: Order cancelled - Patient discharged Performed By: #### L 500.4050, L100.0100 ####[facility] [address] [place], [address] MCV Normal 80-94 [facility] Comment on above: Result Comment: Canc elled via OM: Order cancelled - Patient discharged Performed By: #### L 500.4050, L100.0100 ####[facility] [address] [place], [address] NEUT% Normal 47-70 [facility] Comment on above: Result Comment: Canc elled via OM: Order cancelled - Patient discharged Performed By: #### L 500.4050, L100.0100 ####[facility] [address] [place], [address] PLT Normal 150-450 [facility] Comment on above: Result Comment: Canc elled via OM: Order cancelled - Patient discharged Performed By: #### L 500.4050, L100.0100 ####[facility] [address] [place], [address] RBC Normal 4.6-6.2 [facility] Comment on above: Result Comment: Canc elled via OM: Order cancelled - Patient discharged Performed By: #### L 500.4050, L100.0100 ####[facility] [address] [place], [address] RDW CV Normal 11.6-14.6 [facility] Comment on above: Result Comment: Canc elled via OM: Order cancelled - Patient discharged Performed By: #### L 500.4050, L100.0100 ####[facility] [address] [place], [address] RDW SD Normal 35.1-43.9 [facility] Comment on above: Result Comment: Canc elled via OM: Order cancelled - Patient discharged Performed By: #### L 500.4050, L100.0100 ####[facility] [address] [place], [address] WBC Normal 4.4-11.0 [facility] Comment on above: Result Comment: Canc elled via OM: Order cancelled - Patient discharged Performed By: #### L 500.4050, L100.0100 ####[facility] [address] [place], [address] Comprehensive Metabolic Prof ilon 02-13-2025 ALB Normal 3.4-4.8 [facility] Comment on above: Result Comment: Canc elled via OM: Order cancelled - Patient discharged Performed By: #### L 500.4050, L100.0100 ####[facility] [address] [place], [address] ALK PHOS Normal 40-129 [facility] Comment on above: Result Comment: Canc elled via OM: Order cancelled - Patient discharged Performed By: #### L 500.4050, L100.0100 ####[facility] [address] [place], [address] ALT Normal <=46 [facility] Comment on above: Result Comment: Canc elled via OM: Order cancelled - Patient discharged Performed By: #### L 500.4050, L100.0100 ####[facility] [address] [place], [address] AST Normal <=37 [facility] Comment on above: Result Comment: Canc elled via OM: Order cancelled - Patient discharged Performed By: #### L 500.4050, L100.0100 ####[facility] [address] [place], [address] BUN Normal 4-19 [facility] Comment on above: Result Comment: Canc elled via OM: Order cancelled - Patient discharged Performed By: #### L 500.4050, L100.0100 ####[facility] [address] [place], [address] BUN/CRE Normal 10-20 [facility] Comment on above: Result Comment: Canc elled via OM: Order cancelled - Patient discharged Performed By: #### L 500.4050, L100.0100 ####[facility] [address] [place], [address] Calcium Normal 7.6-11.0 [facility] Comment on above: Result Comment: Canc elled via OM: Order cancelled - Patient discharged Performed By: #### L 500.4050, L100.0100 ####[facility] [address] [place], [address] CL Normal 98-108 [facility] Comment on above: Result Comment: Canc elled via OM: Order cancelled - Patient discharged Performed By: #### L 500.4050, L100.0100 ####[facility] [address] [place], [address] CO2 Normal 21.0-32.0 [facility] Comment on above: Result Comment: Canc elled via OM: Order cancelled - Patient discharged Performed By: #### L 500.4050, L100.0100 ####[facility] [address] [place], [address] CREAT,SERUM Normal 0.70-1.20 [facility] Comment on above: Result Comment: Canc elled via OM: Order cancelled - Patient discharged Performed By: #### L 500.4050, L100.0100 ####[facility] [address] [place], [address] eGFR Normal >60 [facility] Comment on above: Result Comment: Canc elled via OM: Order cancelled - Patient discharged Performed By: #### L 500.4050, L100.0100 ####[facility] [address] [place], [address] GAP Normal 5-15 [facility] Comment on above: Result Comment: Canc elled via OM: Order cancelled - Patient discharged Performed By: #### L 500.4050, L100.0100 ####[facility] [address] [place], [address] GLU Normal 70-99 [facility] Comment on above: Result Comment: Canc elled via OM: Order cancelled - Patient discharged Performed By: #### L 500.4050, L100.0100 ####[facility] [address] [place], [address] Potassium Normal 3.3-5.1 [facility] Comment on above: Result Comment: Canc elled via OM: Order cancelled - Patient discharged Performed By: #### L 500.4050, L100.0100 ####[facility] [address] [place], [address] T BILI Normal 0.00-1.30 [facility] Comment on above: Result Comment: Canc elled via OM: Order cancelled - Patient discharged Performed By: #### L 500.4050, L100.0100 ####[facility] [address] [place], [address] T PROT Normal 5.9-8.4 [facility] Comment on above: Result Comment: Canc elled via OM: Order cancelled - Patient discharged Performed By: #### L 500.4050, L100.0100 ####[facility] [address] [place], [address] Comprehensive Metabolic Profil Normal 133-145 [facility] Comment on above: Result Comment: Canc elled via OM: Order cancelled - Patient discharged Performed By: #### L 500.4050, L100.0100 ####[facility] [address] [place], [address] Progress Noteon 02-13-2025 Progress Note Jared Raymond 79 y[address] . referred by Dr. Flores is being evaluated for aortic valve stenosis. Echocardiogram completed on 11/28/24 showed severe aortic valve stenosis with peak/mean gradients 74/44 mm Hg. Per note, patient with past medical history significant for HTN, CAD, s/p CABG 2019, aortic valve stenosis. Pt had echo performed 11/28/24 to evaluate progression of aortic valve stenosis. Echo showed LVEF 65%, mild TI, and moderate focal aortic valve calcification with peak/mean gradients 74/44 mmHg. Medical History[1] Blood thinner - None Cardiac Catheterization 01/14/25 Transthoracic Echocardiogram 11/28/24 Lexiscan Stress Test 08/16/2023 [1] Past Medical History: Diagnosis Date CAD (coronary artery disease) Colon cancer (HCC) 04/2024 Hypertension Severe aortic stenosis Normal [facility] Absolute lymphocyte countOrd ered By: Darrel Galvan on 02-12-2025 Lymphocytes Auto (Unsp spec) [#/Vol] 0.58 10*3/uL Low 0.83-4.51 [facility] Anion gap in Serum or Plasma Ordered By: Darrel Galvan on 02-12-2025 Anion gap [Moles/Vol] 12 mmol/L 12-13 [facility] Automated lymphocyte count a s percentage of total leukocytesOrdered By: Darrel Galvan on 02-12-2025 Lymphocytes/100 WBC Auto (Unsp spec) 9.0 % Low 19-41 [facility] BUN/creatinine ratioOrdered By: Darrel Galvan on 02-12-2025 Urea nitrogen/Creatinine [Mass ratio] 14.5 mg/mg 10- [facility] Basophil percentageOrdered B y: Darrel Galvan on 02-12-2025 Basophils/100 WBC (Bld) 0.3 % 0- [facility] Bilirubin, totalOrdered By: Darrel Galvan on 02-12-2025 Bilirubin [Mass/Vol] 8.06 mg/dL High 0.00-1.30 [facility] CBC W/Diff, Automatedon 01-29 Absolute Lymph 0.58 X10 3/uL Low 0.83-4.51 [facility] Comment on above: Performed By: #### L 501.2300, L500.4050, L100.0100, L501.5200 ####[facility] [address] [place], [address] Absolute Neut 4.7 X10 3/uL Normal 2.0-7.7 [facility] Comment on above: Performed By: #### L 501.2300, L500.4050, L100.0100, L501.5200 ####[facility] [address] [place], [address] Basophils/100 WBC (Bld) 0.3 % Normal 0-1 [facility] Comment on above: Performed By: #### L 501.2300, L500.4050, L100.0100, L501.5200 ####[facility] [address] [place], [address] Eosinophils/100 WBC (Bld) 1.4 % Normal 0-5 [facility] Comment on above: Performed By: #### L 501.2300, L500.4050, L100.0100, L501.5200 ####[facility] [address] [place], [address] Erythrocyte distribution width (RBC) [Ratio] 15.9 % High 11.6-14.6 [facility] Comment on above: Performed By: #### L 501.2300, L500.4050, L100.0100, L501.5200 ####[facility] [address] [place], [address] Hematocrit (Bld) [Volume fraction] 28.6 % Low 40-54 [facility] Comment on above: Performed By: #### L 501.2300, L500.4050, L100.0100, L501.5200 ####[facility] [address] [place], [address] Hemoglobin (Bld) [Mass/Vol] 10.0 g/dL Low 13.0-16.5 [facility] Comment on above: Performed By: #### L 501.2300, L500.4050, L100.0100, L501.5200 ####[facility] [address] [place], [address] IG% 0.300 Normal 0.0-0.9 [facility] Comment on above: Result Comment: IG% - Immature Granulocytes (promyelocytes, myelocytes andmetamyelocytes) > 1% indicates that a LEFT SHIFT is Present. Performed By: #### L 501.2300, L500.4050, L100.0100, L501.5200 ####[facility] [address] [place], [address] Lymphocytes/100 WBC (Bld) 9.0 % Low 19-41 [facility] Comment on above: Performed By: #### L 501.2300, L500.4050, L100.0100, L501.5200 ####[facility] [address], [address] MCH (RBC) [Entitic mass] 29.1 pg Normal 27.0-32.0 [facility] Comment on above: Performed By: #### L 501.2300, L500.4050, L100.0100, L501.5200 ####[facility] [address] [place], [address] MCHC (RBC) [Mass/Vol] 35.0 g/dL Normal 32-36 [facility] Comment on above: Performed By: #### L 501.2300, L500.4050, L100.0100, L501.5200 ####[facility] [address] [place], [address] MCV (RBC) [Entitic vol] 83.1 fL Normal 80-94 [facility] Comment on above: Performed By: #### L 501.2300, L500.4050, L100.0100, L501.5200 ####[facility] [address] [place], [address] Monocytes/100 WBC (Bld) 16.6 % High 0-10 [facility] Comment on above: Performed By: #### L 501.2300, L500.4050, L100.0100, L501.5200 ####[facility] [address] [place], [address] Neutrophils/100 WBC (Bld) 72.4 % High 47-70 [facility] Comment on above: Performed By: #### L 501.2300, L500.4050, L100.0100, L501.5200 ####[facility] [address] [place], [address] Nucleated RBC (Bld) [#/Vol] 0 10*3/uL Normal 0-5 [facility] Comment on above: Performed By: #### L 501.2300, L500.4050, L100.0100, L501.5200 ####[facility] [address] [place], [address] Platelet mean volume (Bld) [Entitic vol] 10.5 fL Normal 6.2-12.0 [facility] Comment on above: Performed By: #### L 501.2300, L500.4050, L100.0100, L501.5200 ####[facility] [address] [place], [address] Platelets (Bld) [#/Vol] 232 10*3/uL Normal 150-450 [facility] Comment on above: Performed By: #### L 501.2300, L500.4050, L100.0100, L501.5200 ####[facility] [address] [place], [address] RBC (Bld) [#/Vol] 3.44 10*6/uL Low 4.6-6.2 [facility] Comment on above: Performed By: #### L 501.2300, L500.4050, L100.0100, L501.5200 ####[facility] [address] [place], [address] RDW SD 47.7 fl High 35.1-43.9 [facility] Comment on above: Performed By: #### L 501.2300, L500.4050, L100.0100, L501.5200 ####[facility] [address] [place], [address] WBC (Bld) [#/Vol] 6.4 10*3/uL Normal 4.4-11.0 [facility] Comment on above: Performed By: #### L 501.2300, L500.4050, L100.0100, L501.5200 ####[facility] [address] [place], [address] Carbon dioxide, total [Moles /volume] in Central venous bloodOrdered By: Darrel Galvan on 02-12-2025 CO2 [Moles/Vol] 20.7 mmol/L Low 21.0-32.0 [facility] Chloride assayOrdered By: Gopi Galvan on 02-12-2025 Chloride [Moles/Vol] 95 mmol/L Low 98-108 [facility] Comprehensive Metabolic Prof ilon 02-12-2025 Albumin [Mass/Vol] 3.5 g/dL Normal 3.4-4.8 [facility] Comment on above: Performed By: #### L 501.2300, L500.4050, L100.0100, L501.5200 ####[facility] [address] [place], [address] Albumin/Globulin [Mass ratio] 1.4 {ratio} Normal 0.9-2.4 [facility] Comment on above: Performed By: #### L 501.2300, L500.4050, L100.0100, L501.5200 ####[facility] [address] [place], [address] ALK PHOS 483 U/L High 40-129 [facility] Comment on above: Performed By: #### L 501.2300, L500.4050, L100.0100, L501.5200 ####[facility] [address] [place], [address] ALT [Catalytic activity/Vol] 148 U/L High <=46 [facility] Comment on above: Performed By: #### L 501.2300, L500.4050, L100.0100, L501.5200 ####[facility] [address] [place], [address] AST [Catalytic activity/Vol] 121 U/L High <=37 [facility] Comment on above: Performed By: #### L 501.2300, L500.4050, L100.0100, L501.5200 ####[facility] [address] [place], [address] Bilirubin [Mass/Vol] 8.06 mg/dL High 0.00-1.30 [facility] Comment on above: Performed By: #### L 501.2300, L500.4050, L100.0100, L501.5200 ####[facility] [address] [place], [address] BUN/CRE 14.5 RATIO Normal 10-20 [facility] Comment on above: Performed By: #### L 501.2300, L500.4050, L100.0100, L501.5200 ####[facility] [address] [place], [address] Calcium [Mass/Vol] 8.8 mg/dL Normal 7.6-11.0 [facility] Comment on above: Performed By: #### L 501.2300, L500.4050, L100.0100, L501.5200 ####[facility] [address] [place], [address] Chloride [Moles/Vol] 95 mmol/L Low 98-108 [facility] Comment on above: Performed By: #### L 501.2300, L500.4050, L100.0100, L501.5200 ####[facility] [address] [place], [address] CO2 [Moles/Vol] 20.7 mmol/L Low 21.0-32.0 [facility] Comment on above: Performed By: #### L 501.2300, L500.4050, L100.0100, L501.5200 ####[facility] [address] [place], [address] Creatinine [Mass/Vol] 0.83 mg/dL Normal 0.70-1.20 [facility] Comment on above: Result Comment: Icte rut present, Results may be affected. Performed By: #### L 501.2300, L500.4050, L100.0100, L501.5200 ####[facility] [address] [place], [address] ECRCL 66.37 ml/min Normal 50-250 [facility] Comment on above: Performed By: #### L 501.2300, L500.4050, L100.0100, L501.5200 ####[facility] [address] [place], [address] GAP 12 Normal 5-15 [facility] Comment on above: Performed By: #### L 501.2300, L500.4050, L100.0100, L501.5200 ####[facility] [address] [place], [address] GFR/1.73 sq M.predicted among non-blacks MDRD (S/P/Bld) [Vol rate/Area] 89 mL/min/{1.73_m2} Normal >60 [facility] Comment on above: Result Comment: mL/m in/1.73m2 CKD-EPI Creatinine Equation (2020) Performed By: #### L 501.2300, L500.4050, L100.0100, L501.5200 ####[facility] [address] [place], [address] Globulin (S) [Mass/Vol] 2.5 g/dL Normal 2.2-4.2 [facility] Comment on above: Performed By: #### L 501.2300, L500.4050, L100.0100, L501.5200 ####[facility] [address] [place], [address] Glucose [Mass/Vol] 116 mg/dL High 70-99 [facility] Comment on above: Performed By: #### L 501.2300, L500.4050, L100.0100, L501.5200 ####[facility] [address] [place], [address] Potassium [Moles/Vol] 3.8 mmol/L Normal 3.3-5.1 [facility] Comment on above: Performed By: #### L 501.2300, L500.4050, L100.0100, L501.5200 ####[facility] [address] [place], [address] Sodium [Moles/Vol] 127 mmol/L Low 133-145 [facility] Comment on above: Performed By: #### L 501.2300, L500.4050, L100.0100, L501.5200 ####[facility] [address] [place], [address] T PROT 6.0 g/dL Normal 5.9-8.4 [facility] Comment on above: Performed By: #### L 501.2300, L500.4050, L100.0100, L501.5200 ####[facility] [address] [place], [address] Urea nitrogen [Mass/Vol] 12 mg/dL Normal 4-19 [facility] Comment on above: Performed By: #### L 501.2300, L500.4050, L100.0100, L501.5200 ####[facility] [address] [place], [address] Eosinophil percentageOrdered By: Darrel Galvan on 02-12-2025 Eosinophils/100 WBC (Bld) 1.4 % 0-5 [facility] Erythrocyte distribution wid th ratioOrdered By: Darrel Galvan on 02-12-2025 Erythrocyte distribution width (RBC) [Ratio] 15.9 % High 11.6-14.6 [facility] Erythrocyte distribution wid th standard deviationOrdered By: Darrel Galvan on 02-12-2025 Erythrocyte distribution width (RBC) [Ratio] 47.7 fl High 35.1-43.9 [facility] Glomerular filtration rate ( GFR) estimation/1.73 sq m using serum, plasma, or whole bOrdered By: Darrel Galvan on 02-12-2025 GFR/1.73 sq M.predicted among non-blacks MDRD (S/P/Bld) [Vol rate/Area] 89 mL/min/{1.73_m2} >60 [facility] Hematocrit Auto (Bld) [Volum e fraction]Ordered By: Darrel Galvan on 02-12-2025 Hematocrit (Bld) [Volume fraction] 28.6 % Low 40-54 [facility] Hemoglobin measurementOrdere d By: Darrel Galvan on 02-12-2025 Hemoglobin (Bld) [Mass/Vol] 10.0 g/dL Low 13.0-16.5 [facility] Immature granulocytes/100 WB C Auto (Bld)Ordered By: Darrel Galvan on 02-12-2025 Immature granulocytes/100 WBC (Bld) 0.300 % 0.0-0.9 [facility] MCV (mean corpuscular volume ) determinationOrdered By: Darrel Galvan on 02-12-2025 MCV (RBC) [Entitic vol] 83.1 fL 80-94 [facility] Magnesiumon 02-12-2025 Magnesium [Mass/Vol] 1.9 mg/dL Normal 1.5-2.2 [facility] Comment on above: Performed By: #### L 501.2300, L500.4050, L100.0100, L501.5200 ####[facility] [address] [place], [place], [address] Magnesium measurement (mass/ volume)Ordered By: Darrel Galvan on 02-12-2025 Magnesium (Unsp spec) [Mass/Vol] 1.9 mg/dL 1.5-2.2 [facility] Mean corpuscular hemoglobin (MCH) determinationOrdered By: Darrel Galvan on 02-12-2025 MCH (RBC) [Entitic mass] 29.1 pg 27.0-32.0 [facility] Monocyte percentageOrdered B y: Darrel Galvan on 02-12-2025 Monocytes/100 WBC (Bld) 16.6 % High 0-10 [facility] Neutrophil percentageOrdered By: Darrel Galvan on 02-12-2025 Neutrophils/100 WBC (Bld) 72.4 % High 47-70 [facility] No Panel InformationOrdered By: Darrel Galvan on 02-12-2025 121 U/L High <38 [facility] Phosphoruson 02-12-2025 Phosphate [Mass/Vol] 3.0 mg/dL Normal 2.7-4.5 [facility] Comment on above: Performed By: #### L 501.2300, L500.4050, L100.0100, L501.5200 ####[facility] [address] [place], [address] Platelet countOrdered By: Gopi Galvan on 02-12-2025 Platelets (Bld) [#/Vol] 232 10*3/uL 150-450 [facility] Potassium measurement (mass/ volume)Ordered By: Darrel Galvan on 02-12-2025 Potassium (Unsp spec) [Mass/Vol] 3.8 mmol/L 3.3-5.1 [facility] RBC Auto (Bld) [#/Vol]Ordere d By: Darrel Galvan on 02-12-2025 RBC (Bld) [#/Vol] 3.44 10*6/uL Low 4.6-6.2 [facility] Serum creatinine measurement (mass/volume)Ordered By: Darrel Galvan on 02-12-2025 Creatinine [Mass/Vol] 0.83 mg/dL 0.70-1.20 [facility] Serum globulin measurementOr dered By: Darrel Galvan on 02-12-2025 Globulin (S) [Mass/Vol] 2.5 g/dL 2.2-4.2 [facility] Serum glucose measurement (m ass/volume)Ordered By: Darrel Galvan on 02-12-2025 Glucose [Mass/Vol] 116 mg/dL High 70-99 [facility] Serum or plasma alanine carrion otransferase (ALT) measurementOrdered By: Darrel Galvan on 02-12-2025 ALT [Catalytic activity/Vol] 148 U/L High <47 [facility] Serum or plasma albumin shagufta urement (mass/volume)Ordered By: Darrel Galvan on 02-12-2025 Albumin [Mass/Vol] 3.5 g/dL 3.4-4.8 [facility] Serum or plasma albumin/glob ulin mass ratioOrdered By: Darrel Galvan on 02-12-2025 Albumin/Globulin [Mass ratio] 1.4 {ratio} 0.9-2.4 [facility] Serum or plasma alkaline airam sphatase measurementOrdered By: Darrel Galvan on 02-12-2025 ALP [Catalytic activity/Vol] 483 U/L High 40-129 [facility] Serum or plasma calcium shagufta urement (mass/volume)Ordered By: Darrel Galvan on 02-12-2025 Calcium [Mass/Vol] 8.8 mg/dL 7.6-11.0 [facility] Serum or plasma urea nitroge n measurement (mass/volume)Ordered By: Darrel Galvan on 02-12-2025 Urea nitrogen [Mass/Vol] 12 mg/dL 4-19 [facility] Sodium levelOrdered By: Jesse Galvan on 02-12-2025 Sodium [Moles/Vol] 127 mmol/L Low 133-145 [facility] Total proteinOrdered By: Esdras Galvan on 02-12-2025 Protein [Mass/Vol] 6.0 g/dL 5.9-8.4 [facility] White blood cell (WBC) count Ordered By: Darrel Galvan on 02-12-2025 WBC (Bld) [#/Vol] 6.4 10*3/uL 4.4-11.0 [facility] Abdomen/Pelvis W IV Cont ONL Yon 02-11-2025 Abdomen/Pelvis W IV Cont ONLY Normal [facility] CBC-Complete Blood Cnt No Di ffon 02-11-2025 Erythrocyte distribution width (RBC) [Ratio] 15.6 % High 11.6-14.6 [facility] Comment on above: Performed By: #### L 500.4050, L100.0500 ####[facility] [address] [place], [address] MCH (RBC) [Entitic mass] 29.1 pg Normal 27.0-32.0 [facility] Comment on above: Performed By: #### L 500.4050, L100.0500 ####[facility] [address] [place], [address] MCHC (RBC) [Mass/Vol] 34.5 g/dL Normal 32-36 [facility] Comment on above: Performed By: #### L 500.4050, L100.0500 ####[facility] [address] [place], [address] Platelet mean volume (Bld) [Entitic vol] 10.6 fL Normal 6.2-12.0 [facility] Comment on above: Performed By: #### L 500.4050, L100.0500 ####[facility] [address] [place], [address] Platelets (Bld) [#/Vol] 240 10*3/uL Normal 150-450 [facility] Comment on above: Performed By: #### L 500.4050, L100.0500 ####[facility] [address] [place], [address] RDW SD 47.8 fl High 35.1-43.9 [facility] Comment on above: Performed By: #### L 500.4050, L100.0500 ####[facility] [address] [place], [address] Hematocrit (Bld) [Volume fraction] 29.6 % Low 40-54 [facility] Comment on above: Performed By: #### L 500.4050, L100.0500 ####[facility] [address] [place], [address] Hemoglobin (Bld) [Mass/Vol] 10.2 g/dL Low 13.0-16.5 [facility] Comment on above: Performed By: #### L 500.4050, L100.0500 ####[facility] [address] [place], [address] MCV (RBC) [Entitic vol] 84.6 fL Normal 80-94 [facility] Comment on above: Performed By: #### L 500.4050, L100.0500 ####[facility] [address] [place], [address] RBC (Bld) [#/Vol] 3.50 10*6/uL Low 4.6-6.2 [facility] Comment on above: Performed By: #### L 500.4050, L100.0500 ####[facility] [address] [place], [address] WBC (Bld) [#/Vol] 7.2 10*3/uL Normal 4.4-11.0 [facility] Comment on above: Performed By: #### L 500.4050, L100.0500 ####[facility] [address] [place], [address] Comprehensive Metabolic Prof [facility] 02-11-2025 Albumin [Mass/Vol] 3.7 g/dL Normal 3.4-4.8 [facility] Comment on above: Performed By: #### L 500.4050, L100.0500 ####[facility] [address] [place], [address] Albumin/Globulin [Mass ratio] 1.5 {ratio} Normal 0.9-2.4 [facility] Comment on above: Performed By: #### L 500.4050, L100.0500 ####[facility] [address] [place], [address] ALK PHOS 501 U/L High 40-129 [facility] Comment on above: Performed By: #### L 500.4050, L100.0500 ####[facility] [address] [place], [address] ALT [Catalytic activity/Vol] 147 U/L High <=46 [facility] Comment on above: Performed By: #### L 500.4050, L100.0500 ####[facility] [address] [place], [address] AST [Catalytic activity/Vol] 126 U/L High <=37 [facility] Comment on above: Performed By: #### L 500.4050, L100.0500 ####[facility] [address] [place], [address] Bilirubin [Mass/Vol] 8.06 mg/dL High 0.00-1.30 [facility] Comment on above: Performed By: #### L 500.4050, L100.0500 ####[facility] [address] [place], [address] BUN/CRE 10.5 RATIO Normal 10-20 [facility] Comment on above: Performed By: #### L 500.4050, L100.0500 ####[facility] [address] [place], [address] Calcium [Mass/Vol] 8.9 mg/dL Normal 7.6-11.0 [facility] Comment on above: Performed By: #### L 500.4050, L100.0500 ####[facility] [address] [place], [address] Chloride [Moles/Vol] 94 mmol/L Low 98-108 [facility] Comment on above: Performed By: #### L 500.4050, L100.0500 ####[facility] [address] [place], [address] CO2 [Moles/Vol] 19.8 mmol/L Low 21.0-32.0 [facility] Comment on above: Performed By: #### L 500.4050, L100.0500 ####[facility] [address] [place], [address] Creatinine [Mass/Vol] 0.84 mg/dL Normal 0.70-1.20 [facility] Comment on above: Result Comment: Icte rut present, Results may be affected. Performed By: #### L 500.4050, L100.0500 ####[facility] [address] [place], [address] ECRCL 65.58 ml/min Normal 50-250 [facility] Comment on above: Performed By: #### L 500.4050, L100.0500 ####[facility] [address] [place], [address] GAP 12 Normal 5-15 [facility] Comment on above: Performed By: #### L 500.4050, L100.0500 ####[facility] [address] [place], [address] GFR/1.73 sq M.predicted among non-blacks MDRD (S/P/Bld) [Vol rate/Area] 88 mL/min/{1.73_m2} Normal >60 [facility] Comment on above: Result Comment: mL/m in/1.73m2 CKD-EPI Creatinine Equation (2020) Performed By: #### L 500.4050, L100.0500 ####[facility] [address] [place], [address] Globulin (S) [Mass/Vol] 2.6 g/dL Normal 2.2-4.2 [facility] Comment on above: Performed By: #### L 500.4050, L100.0500 ####[facility] [address] [place], [address] Glucose [Mass/Vol] 108 mg/dL High 70-99 [facility] Comment on above: Performed By: #### L 500.4050, L100.0500 ####[facility] [address] [place], [address] Potassium [Moles/Vol] 3.8 mmol/L Normal 3.3-5.1 [facility] Comment on above: Performed By: #### L 500.4050, L100.0500 ####[facility] [address] [place], [address] Sodium [Moles/Vol] 126 mmol/L Low 133-145 [facility] Comment on above: Performed By: #### L 500.4050, L100.0500 ####[facility] [address] [place], [address] T PROT 6.3 g/dL Normal 5.9-8.4 [facility] Comment on above: Performed By: #### L 500.4050, L100.0500 ####[facility] [address] [place], [address] Urea nitrogen [Mass/Vol] 9 mg/dL Normal 4-19 [facility] Comment on above: Performed By: #### L 500.4050, L100.0500 ####[facility] [address] [place], [address] Emergency Department Summary on 02-11-2025 Emergency Department Summary Normal [facility] H AND P Exam - Hospitaliston 02-11-2025 H&P Exam - Hospitalist Normal [facility] Paracentesis with USon 02-11 Paracentesis with US Normal [facility] Absolute lymphocyte countOrd ered By: Harrison Linares on 02-10-2025 Lymphocytes Auto (Unsp spec) [#/Vol] 0.56 10*3/uL Low 0.83-4.51 [facility] Activated partial thrombopla stin time (aPTT) in platelet poor plasma by coagulation aOrdered By: Harrison Linares on 02-10-2025 aPTT Coag (PPP) [Time] 28.2 s 24.1-36.2 [facility] Ammoniaon 02-10-2025 Ammonia (P) [Moles/Vol] 25.6 umol/L Normal 16-60 [facility] Comment on above: Performed By: #### L 501.2450, L500.2500, L503.5510, L100.0100, L300.3900, L300.4310, L500.3400 ####[facility] [address] [place], [place], [id number] Amorphous sediment detection in urine sediment by light microscopyOrdered By: Harrison Linares on 02-10-2025 Amorphous sediment LM Ql (Urine sed) 1+ [facility] Anion gap in Serum or Plasma Ordered By: Harrison Linares on 02-10-2025 Anion gap [Moles/Vol] 13 mmol/L 5-15 [facility] Automated lymphocyte count a s percentage of total leukocytesOrdered By: Harrison Linares on 02-10-2025 Lymphocytes/100 WBC Auto (Unsp spec) 7.7 % Low 19-41 [facility] BUN/creatinine ratioOrdered By: Harrison Linares on 02-10-2025 Urea nitrogen/Creatinine [Mass ratio] 11.2 mg/mg 10-20 [facility] Basic Metabolic Profile (BMP )on 02-10-2025 BUN/CRE 11.2 RATIO Normal 10-20 [facility] Comment on above: Performed By: #### L 501.2450, L500.2500, L503.5510, L100.0100, L300.3900, L300.4310, L500.3400 ####[facility] [address] [place], [place], [id number] Calcium [Mass/Vol] 8.9 mg/dL Normal 7.6-11.0 [facility] Comment on above: Performed By: #### L 501.2450, L500.2500, L503.5510, L100.0100, L300.3900, L300.4310, L500.3400 ####[facility] [address] [place], [address] Chloride [Moles/Vol] 92 mmol/L Low 98-108 [facility] Comment on above: Performed By: #### L 501.2450, L500.2500, L503.5510, L100.0100, L300.3900, L300.4310, L500.3400 ####[facility] [address] [place], [address] CO2 [Moles/Vol] 19.0 mmol/L Low 21.0-32.0 [facility] Comment on above: Performed By: #### L 501.2450, L500.2500, L503.5510, L100.0100, L300.3900, L300.4310, L500.3400 ####[facility] [address] [place], [address] Creatinine [Mass/Vol] 0.87 mg/dL Normal 0.70-1.20 [facility] Comment on above: Result Comment: Icte rut present, Results may be affected. Performed By: #### L 501.2450, L500.2500, L503.5510, L100.0100, L300.3900, L300.4310, L500.3400 ####[facility] [address] [place], [address] ECRCL 63.31 ml/min Normal 50-250 [facility] Comment on above: Performed By: #### L 501.2450, L500.2500, L503.5510, L100.0100, L300.3900, L300.4310, L500.3400 ####[facility] [address] [place], [address] GAP 13 Normal 5-15 [facility] Comment on above: Performed By: #### L 501.2450, L500.2500, L503.5510, L100.0100, L300.3900, L300.4310, L500.3400 ####[facility] [address] [place], [address] GFR/1.73 sq M.predicted among non-blacks MDRD (S/P/Bld) [Vol rate/Area] 87 mL/min/{1.73_m2} Normal >60 [facility] Comment on above: Result Comment: mL/m in/1.73m2 CKD-EPI Creatinine Equation (2020) Performed By: #### L 501.2450, L500.2500, L503.5510, L100.0100, L300.3900, L300.4310, L500.3400 ####[facility] [address] [place], [address] Glucose [Mass/Vol] 120 mg/dL High 70-99 [facility] Comment on above: Performed By: #### L 501.2450, L500.2500, L503.5510, L100.0100, L300.3900, L300.4310, L500.3400 ####[facility] [address] [place], [address] Potassium [Moles/Vol] 3.9 mmol/L Normal 3.3-5.1 [facility] Comment on above: Performed By: #### L 501.2450, L500.2500, L503.5510, L100.0100, L300.3900, L300.4310, L500.3400 ####[facility] [address] [place], [address] Sodium [Moles/Vol] 124 mmol/L Low 133-145 [facility] Comment on above: Performed By: #### L 501.2450, L500.2500, L503.5510, L100.0100, L300.3900, L300.4310, L500.3400 ####[facility] [address] [place], [address] Urea nitrogen [Mass/Vol] 10 mg/dL Normal 4-19 [facility] Comment on above: Performed By: #### L 501.2450, L500.2500, L503.5510, L100.0100, L300.3900, L300.4310, L500.3400 ####[facility] [address] [place], [address] Basophil percentageOrdered B y: Harrison Linares on 02-10-2025 Basophils/100 WBC (Bld) 0.4 % 0-1 [facility] Bilirubin Test strip Ql (U)O rdered By: Harrison Linares on 02-10-2025 Bilirubin Ql (U) 3 mg/dL High Negative [facility] Bilirubin directOrdered By: Harrison Linares on 02-10-2025 Bilirubin.direct [Mass/Vol] 5.21 mg/dL High 0.00-0.30 [facility] Bilirubin, totalOrdered By: Harrison Linares on 02-10-2025 Bilirubin [Mass/Vol] 7.43 mg/dL High 0.00-1.30 [facility] CBC W/Diff, Automatedon 01-29 Absolute Lymph 0.56 X10 3/uL Low 0.83-4.51 [facility] Comment on above: Performed By: #### L 501.2450, L500.2500, L503.5510, L100.0100, L300.3900, L300.4310, L500.3400 ####[facility] [address] [place], [address] Absolute Neut 5.7 X10 3/uL Normal 2.0-7.7 [facility] Comment on above: Performed By: #### L 501.2450, L500.2500, L503.5510, L100.0100, L300.3900, L300.4310, L500.3400 ####[facility] [address] [place], [address] Basophils/100 WBC (Bld) 0.4 % Normal 0-1 [facility] Comment on above: Performed By: #### L 501.2450, L500.2500, L503.5510, L100.0100, L300.3900, L300.4310, L500.3400 ####[facility] [address] [place], [address] Eosinophils/100 WBC (Bld) 1.1 % Normal 0-5 [facility] Comment on above: Performed By: #### L 501.2450, L500.2500, L503.5510, L100.0100, L300.3900, L300.4310, L500.3400 ####[facility] [address] [place], [address] Erythrocyte distribution width (RBC) [Ratio] 15.2 % High 11.6-14.6 [facility] Comment on above: Performed By: #### L 501.2450, L500.2500, L503.5510, L100.0100, L300.3900, L300.4310, L500.3400 ####[facility] [address] [place], [address] Hematocrit (Bld) [Volume fraction] 30.3 % Low 40-54 [facility] Comment on above: Performed By: #### L 501.2450, L500.2500, L503.5510, L100.0100, L300.3900, L300.4310, L500.3400 ####[facility] [address] [place], [address] Hemoglobin (Bld) [Mass/Vol] 10.3 g/dL Low 13.0-16.5 [facility] Comment on above: Performed By: #### L 501.2450, L500.2500, L503.5510, L100.0100, L300.3900, L300.4310, L500.3400 ####[facility] [address] [place], [address] IG% 0.300 Normal 0.0-0.9 [facility] Comment on above: Result Comment: IG% - Immature Granulocytes (promyelocytes, myelocytes andmetamyelocytes) > 1% indicates that a LEFT SHIFT is Present. Performed By: #### L 501.2450, L500.2500, L503.5510, L100.0100, L300.3900, L300.4310, L500.3400 ####[facility] [address] [place], [address] Lymphocytes/100 WBC (Bld) 7.7 % Low 19-41 [facility] Comment on above: Performed By: #### L 501.2450, L500.2500, L503.5510, L100.0100, L300.3900, L300.4310, L500.3400 ####[facility] [address] [place], [address] MCH (RBC) [Entitic mass] 28.8 pg Normal 27.0-32.0 [facility] Comment on above: Performed By: #### L 501.2450, L500.2500, L503.5510, L100.0100, L300.3900, L300.4310, L500.3400 ####[facility] [address] [place], [address] MCHC (RBC) [Mass/Vol] 34.0 g/dL Normal 32-36 [facility] Comment on above: Performed By: #### L 501.2450, L500.2500, L503.5510, L100.0100, L300.3900, L300.4310, L500.3400 ####[facility] [address] [place], [address] MCV (RBC) [Entitic vol] 84.6 fL Normal 80-94 [facility] Comment on above: Performed By: #### L 501.2450, L500.2500, L503.5510, L100.0100, L300.3900, L300.4310, L500.3400 ####[facility] [address] [place], [address] Monocytes/100 WBC (Bld) 12.4 % High 0-10 [facility] Comment on above: Performed By: #### L 501.2450, L500.2500, L503.5510, L100.0100, L300.3900, L300.4310, L500.3400 ####[facility] [address] [place], [address] Neutrophils/100 WBC (Bld) 78.1 % High 47-70 [facility] Comment on above: Performed By: #### L 501.2450, L500.2500, L503.5510, L100.0100, L300.3900, L300.4310, L500.3400 ####[facility] [address] [place], [address] Nucleated RBC (Bld) [#/Vol] 0 10*3/uL Normal 0-5 [facility] Comment on above: Performed By: #### L 501.2450, L500.2500, L503.5510, L100.0100, L300.3900, L300.4310, L500.3400 ####[facility] [address] [place], [address] Platelet mean volume (Bld) [Entitic vol] 10.2 fL Normal 6.2-12.0 [facility] Comment on above: Performed By: #### L 501.2450, L500.2500, L503.5510, L100.0100, L300.3900, L300.4310, L500.3400 ####[facility] [address] [place], [address] Platelets (Bld) [#/Vol] 266 10*3/uL Normal 150-450 [facility] Comment on above: Performed By: #### L 501.2450, L500.2500, L503.5510, L100.0100, L300.3900, L300.4310, L500.3400 ####[facility] [address] [place], [address] RBC (Bld) [#/Vol] 3.58 10*6/uL Low 4.6-6.2 [facility] Comment on above: Performed By: #### L 501.2450, L500.2500, L503.5510, L100.0100, L300.3900, L300.4310, L500.3400 ####[facility] [address] [place], [address] RDW SD 47.2 fl High 35.1-43.9 [facility] Comment on above: Performed By: #### L 501.2450, L500.2500, L503.5510, L100.0100, L300.3900, L300.4310, L500.3400 ####[facility] [address] [place], [address] WBC (Bld) [#/Vol] 7.3 10*3/uL Normal 4.4-11.0 [facility] Comment on above: Performed By: #### L 501.2450, L500.2500, L503.5510, L100.0100, L300.3900, L300.4310, L500.3400 ####[facility] [address] [place], [address] Carbon dioxide, total [Moles /volume] in Central venous bloodOrdered By: Harrison Linares on 02-10-2025 CO2 [Moles/Vol] 19.0 mmol/L Low 21.0-32.0 [facility] Chest 1 View (Portable)on Chest 1 View (Portable) Normal [facility] Chloride assayOrdered By: Erica Linares on 02-10-2025 Chloride [Moles/Vol] 92 mmol/L Low 98-108 [facility] Eosinophil percentageOrdered By: Harrison Linares on 02-10-2025 Eosinophils/100 WBC (Bld) 1.1 % 0-5 [facility] Erythrocyte distribution wid th ratioOrdered By: Harrison Linares on 02-10-2025 Erythrocyte distribution width (RBC) [Ratio] 15.2 % High 11.6-14.6 [facility] Erythrocyte distribution wid th standard deviationOrdered By: Harrison Linares on 02-10-2025 Erythrocyte distribution width (RBC) [Ratio] 47.2 fl High 35.1-43.9 [facility] Glomerular filtration rate ( GFR) estimation/1.73 sq m using serum, plasma, or whole bOrdered By: Harrison Linares on 02-10-2025 GFR/1.73 sq M.predicted among non-blacks MDRD (S/P/Bld) [Vol rate/Area] 87 mL/min/{1.73_m2} >60 [facility] Hematocrit Auto (Bld) [Volum e fraction]Ordered By: Harrison Linares on 02-10-2025 Hematocrit (Bld) [Volume fraction] 30.3 % Low 40-54 [facility] Hemoglobin measurementOrdere d By: Harrison Linares on 02-10-2025 Hemoglobin (Bld) [Mass/Vol] 10.3 g/dL Low 13.0-16.5 [facility] Immature granulocytes/100 WB C Auto (Bld)Ordered By: Harrison Linares on 02-10-2025 Immature granulocytes/100 WBC (Bld) 0.300 % 0.0-0.9 [facility] Ketones Test strip Ql (U)Ord ered By: Harrison Linares on 02-10-2025 Ketones Ql (U) Negative Negative [facility] Lipaseon 02-10-2025 Lipase [Catalytic activity/Vol] 141 U/L High 13-75 [facility] Comment on above: Result Comment: Debi vieyra note:LIPASE revised reference range effective 22.New Lipase methodology. Expected to produce lower valuesthan the previous assay method.NEW Reference Range: 13 - 75 U/L Performed By: #### L 501.2450, L500.2500, L503.5510, L100.0100, L300.3900, L300.4310, L500.3400 ####[facility] [address] [place], [address] Liver Profileon 02-10-2025 Albumin [Mass/Vol] 3.8 g/dL Normal 3.4-4.8 [facility] Comment on above: Performed By: #### L 501.2450, L500.2500, L503.5510, L100.0100, L300.3900, L300.4310, L500.3400 ####[facility] [address] [place], [address] ALK PHOS 516 U/L High 40-129 [facility] Comment on above: Performed By: #### L 501.2450, L500.2500, L503.5510, L100.0100, L300.3900, L300.4310, L500.3400 ####[facility] [address] [place], [address] ALT [Catalytic activity/Vol] 160 U/L High <=46 [facility] Comment on above: Performed By: #### L 501.2450, L500.2500, L503.5510, L100.0100, L300.3900, L300.4310, L500.3400 ####[facility] [address] [place], [address] AST [Catalytic activity/Vol] 132 U/L High <=37 [facility] Comment on above: Performed By: #### L 501.2450, L500.2500, L503.5510, L100.0100, L300.3900, L300.4310, L500.3400 ####[facility] [address] [place], [address] Bilirubin [Mass/Vol] 7.43 mg/dL High 0.00-1.30 [facility] Comment on above: Performed By: #### L 501.2450, L500.2500, L503.5510, L100.0100, L300.3900, L300.4310, L500.3400 ####[facility] [address] [place], [address] Bilirubin.direct [Mass/Vol] 5.21 mg/dL High 0.00-0.30 [facility] Comment on above: Performed By: #### L 501.2450, L500.2500, L503.5510, L100.0100, L300.3900, L300.4310, L500.3400 ####[facility] [address] [place], [address] Globulin (S) [Mass/Vol] 2.7 g/dL Normal 2.2-4.2 [facility] Comment on above: Performed By: #### L 501.2450, L500.2500, L503.5510, L100.0100, L300.3900, L300.4310, L500.3400 ####[facility] [address] [place], [address] T PROT 6.5 g/dL Normal 5.9-8.4 [facility] Comment on above: Performed By: #### L 501.2450, L500.2500, L503.5510, L100.0100, L300.3900, L300.4310, L500.3400 ####[facility] [address] [place], [address] MCV (mean corpuscular volume ) determinationOrdered By: Harrison Linares on 02-10-2025 MCV (RBC) [Entitic vol] 84.6 fL 80-94 [facility] Mean corpuscular hemoglobin (MCH) determinationOrdered By: Harrison Linares on 02-10-2025 MCH (RBC) [Entitic mass] 28.8 pg 27.0-32.0 [facility] Monocyte percentageOrdered B y: Harrison Linares on 02-10-2025 Monocytes/100 WBC (Bld) 12.4 % High 0-10 [facility] Mucus LM Ql (Urine sed)Order ed By: Harrison Linares on 02-10-2025 Mucus Ql (Urine sed) 0 SEEN /hpf [facility] Neutrophil percentageOrdered By: Harrison Linares on 02-10-2025 Neutrophils/100 WBC (Bld) 78.1 % High 47-70 [facility] Nitrite Test strip Ql (U)Ord ered By: Harrison Linares on 02-10-2025 Nitrite Ql (U) Negative Negative [facility] No Panel InformationOrdered By: Harrison Linares on 02-10-2025 132 U/L High <38 [facility] Partial Thromboplast Timeon 02-10-2025 aPTT Coag (Bld) [Time] 28.2 s Normal 24.1-36.2 [facility] Comment on above: Performed By: #### L 501.2450, L500.2500, L503.5510, L100.0100, L300.3900, L300.4310, L500.3400 ####[facility] [address] [place], [place], [address] Platelet countOrdered By: Erica Linares on 02-10-2025 Platelets (Bld) [#/Vol] 266 10*3/uL 150-450 [facility] Potassium measurement (mass/ volume)Ordered By: Harrison Linares on 02-10-2025 Potassium (Unsp spec) [Mass/Vol] 3.9 mmol/L 3.3-5.1 [facility] Protein Test strip Ql (U)Ord ered By: Harrison Linares on 02-10-2025 Protein Ql (U) 30 mg/dl High Negative [facility] Prothrombin Time w/INRon INR Coag (PPP) [Relative time] 1.0 {INR} Normal [facility] Comment on above: Performed By: #### L 501.2450, L500.2500, L503.5510, L100.0100, L300.3900, L300.4310, L500.3400 ####[facility] [address] [place], [address] PT Coag (PPP) [Time] 13.6 s Normal 11.7-14.9 [facility] Comment on above: Performed By: #### L 501.2450, L500.2500, L503.5510, L100.0100, L300.3900, L300.4310, L500.3400 ####[facility] [address] [place], [address] Prothrombin timeOrdered By: Harrison Linares on 02-10-2025 PT Coag (PPP) [Time] 13.6 s 11.7-14.9 [facility] RBC Auto (Bld) [#/Vol]Ordere d By: Harrison Linares on 02-10-2025 RBC (Bld) [#/Vol] 3.58 10*6/uL Low 4.6-6.2 [facility] Serum creatinine measurement (mass/volume)Ordered By: Harrison Linares on 02-10-2025 Creatinine [Mass/Vol] 0.87 mg/dL 0.70-1.20 [facility] Serum globulin measurementOr dered By: Harrison Linares on 02-10-2025 Globulin (S) [Mass/Vol] 2.7 g/dL 2.2-4.2 [facility] Serum glucose measurement (m ass/volume)Ordered By: Harrison Linares on 02-10-2025 Glucose [Mass/Vol] 120 mg/dL High 70-99 [facility] Serum or plasma alanine carrion otransferase (ALT) measurementOrdered By: Harrison Linares on 02-10-2025 ALT [Catalytic activity/Vol] 160 U/L High <47 [facility] Serum or plasma albumin shagufta urement (mass/volume)Ordered By: Harrison Linares on 02-10-2025 Albumin [Mass/Vol] 3.8 g/dL 3.4-4.8 [facility] Serum or plasma alkaline airam sphatase measurementOrdered By: Harrison Linares on 02-10-2025 ALP [Catalytic activity/Vol] 516 U/L High 40-129 [facility] Serum or plasma calcium shagufta urement (mass/volume)Ordered By: Harrison Linares on 02-10-2025 Calcium [Mass/Vol] 8.9 mg/dL 7.6-11.0 [facility] Serum or plasma urea nitroge n measurement (mass/volume)Ordered By: Harrison Linares on 02-10-2025 Urea nitrogen [Mass/Vol] 10 mg/dL 4-19 [facility] Sodium levelOrdered By: Dylan Linares on 02-10-2025 Sodium [Moles/Vol] 124 mmol/L Low 133-145 [facility] Squamous epithelial cells de tection in urine sediment by light microscopyOrdered By: Harrison Linares on 02-10-2025 Epithelial cells.squamous LM Ql (Urine sed) 0-5 SEEN /hpf 0-5 [facility] Total proteinOrdered By: Dewayne Linares on 02-10-2025 Protein [Mass/Vol] 6.5 g/dL 5.9-8.4 [facility] Urinalysis, Completeon 02-10 AMORPHOUS 1+ Normal [facility] Comment on above: Order Comment: CLEAN CATCH Performed By: #### L 400.0001 ####[facility] [address] [place], [address] EPI,SQUAMOUS 0-5 SEEN Normal 0-5 [facility] Comment on above: Order Comment: CLEAN CATCH Performed By: #### L 400.0001 ####[facility] [address] [place], [address] WBC 0-5 SEEN Normal 0-5 [facility] Comment on above: Order Comment: CLEAN CATCH Performed By: #### L 400.0001 ####[facility] [address] [place], [address] RBC 0-5 SEEN Normal 0-5 [facility] Comment on above: Order Comment: CLEAN CATCH Performed By: #### L 400.0001 ####[facility] [address] [place], [address] BACTERIA 0 SEEN Normal None Seen [facility] Comment on above: Order Comment: CLEAN CATCH Performed By: #### L 400.0001 ####[facility] [address] [place], [place], [id number] Mucus Ql (Urine sed) 0 SEEN Normal [facility] Comment on above: Order Comment: CLEAN CATCH Performed By: #### L 400.0001 ####[facility] [address] [place], [place], [id number] Urine clarityOrdered By: Dewayne Linares on 02-10-2025 Clarity (U) Cloudy Clear [facility] Urine color determinationOrd ered By: Harrison Linares on 02-10-2025 Color (U) Yellow Yellow [facility] Urine glucose detectionOrder ed By: Harrison Linares on 02-10-2025 Glucose Ql (U) Normal mg/dl Normal [facility] Urine leukocyte esterase det ection by dipstickOrdered By: Harrison Linares on 02-10-2025 Leukocyte esterase Test strip Ql (U) 25 /ul High Negative [facility] Urine pHOrdered By: Harrison wren on 02-10-2025 pH (U) 6.0 [pH] 5.0 - 8.0 [facility] Urine sediment bacteria coun t by microscopy (number/high power field)Ordered By: Harrison Linares on 02-10-2025 Bacteria LM.HPF (Urine sed) [#/Area] 0 /[HPF] None Seen [facility] Urine specific gravity measu rementOrdered By: Harrison Linares on 02-10-2025 Specific gravity (U) [Rel density] 1.015 1.002-1.030 [facility] Urine urobilinogen measureme ntOrdered By: Harrison Linares on 02-10-2025 Urobilinogen Ql (U) 1 mg/dl High Normal [facility] Venous blood ammonia measure mentOrdered By: Harrison Linares on 02-10-2025 Ammonia (P) [Moles/Vol] 25.6 umol/L 16-60 [facility] White blood cell (WBC) count Ordered By: Harrison Linares on 02-10-2025 WBC (Bld) [#/Vol] 7.3 10*3/uL 4.4-11.0 [facility] White blood cell countOrdere d By: Harrison Linares on 02-10-2025 White blood cell count 0-5 SEEN /hpf 0-5 [facility] Urine Cultureon 02-08-2025 URC Culture exhibits no growth. Normal [facility] Comment on above: Performed By: #### L 400.2010, ####[facility] [address] [place], [place], [id number] Bilirubin Test strip Ql (U)O rdered By: Neville Islas on 02-07-2025 Bilirubin Ql (U) 1 mg/dL High Negative [facility] Ketones Test strip Ql (U)Ord ered By: Neville Islas on 02-07-2025 Ketones Ql (U) 5 mg/dl High Negative [facility] Nitrite Test strip Ql (U)Ord ered By: Neville Islas on 02-07-2025 Nitrite Ql (U) Negative Negative [facility] Protein Test strip Ql (U)Ord ered By: Neville Islas on 02-07-2025 Protein Ql (U) 30 mg/dl High Negative [facility] Urinalysis, Routine (Dipstic k)on 02-07-2025 BILIRUBIN URINE 1 mg/dL Abnormal Negative [facility] Comment on above: Order Comment: CLEAN CATCH Result Comment: COLO R OF URINE MAY AFFECT DIPSTICK RESULTS. Performed By: #### L 400.2010, ####[facility] [address] [place], [place], [id number] Clarity (U) Clear Normal Clear [facility] Comment on above: Order Comment: CLEAN CATCH Performed By: #### L 400, ####[facility] [address] [place], [place], [id number] Color (U) Yellow Normal Yellow [facility] Comment on above: Order Comment: CLEAN CATCH Performed By: #### L 400.2010, ####[facility] [address] [place], [address] GLUCOSE, UR Normal Normal Normal [facility] Comment on above: Order Comment: CLEAN CATCH Performed By: #### L 400.2010, ####[facility] [address] [place], [address] KETONE UR 5 mg/dl Abnormal Negative [facility] Comment on above: Order Comment: CLEAN CATCH Performed By: #### L 400.2010, ####[facility] [address] [place], [address] LEUK ESTERASE Negative Normal Negative [facility] Comment on above: Order Comment: CLEAN CATCH Performed By: #### L 400.2010, ####[facility] [address] [place], [address] Nitrite Ql (U) Negative Normal Negative [facility] Comment on above: Order Comment: CLEAN CATCH Performed By: #### L 400.2010, ####[facility] [address] [place], [address] OCCULT BLOOD-UR Negative Normal Negative [facility] Comment on above: Order Comment: CLEAN CATCH Performed By: #### L 400.2010, ####[facility] [address] [place], [address] pH UR 6.0 Normal 5.0 - 8.0 [facility] Comment on above: Order Comment: CLEAN CATCH Performed By: #### L 400.2010, ####[facility] [address] [place], [address] PROT DIPSTX 30 mg/dl Abnormal Negative [facility] Comment on above: Order Comment: CLEAN CATCH Performed By: #### L 400.2010, ####[facility] [address] [place], [address] SP.GR. DIPSTX 1.015 Normal 1.002-1.030 [facility] Comment on above: Order Comment: CLEAN CATCH Performed By: #### L 400.2010, ####[facility] [address] [place], [address] UROBILI Normal Normal Normal [facility] Comment on above: Order Comment: CLEAN CATCH Performed By: #### L 400.2010, ####[facility] [address] [place], [place], [address] Urine clarityOrdered By: Yessi Islas on 02-07-2025 Clarity (U) Clear Clear [facility] Urine color determinationOrd ered By: Neville Islas on 02-07-2025 Color (U) Yellow Yellow [facility] Urine cultureOrdered By: Yessi Islas on 02-07-2025 Bacteria identified Cx Nom (U) Culture exhibits no growth. [facility] Urine glucose detectionOrder ed By: Neville Islas on 02-07-2025 Glucose Ql (U) Normal mg/dl Normal [facility] Urine leukocyte esterase det ection by dipstickOrdered By: Neville Islas on 02-07-2025 Leukocyte esterase Test strip Ql (U) Negative Negative [facility] Urine pHOrdered By: Neville barron on 02-07-2025 pH (U) 6.0 [pH] 5.0 - 8.0 [facility] Urine specific gravity measu rementOrdered By: Neville Islas on 02-07-2025 Specific gravity (U) [Rel density] 1.015 1.002-1.030 [facility] Urine urobilinogen measureme ntOrdered By: Neville Islas on 02-07-2025 Urobilinogen Ql (U) Normal mg/dl Normal [facility] 36on 02-04-2025 36 Spoke with patient t o schedule CTA 02/19 at 11:30 am. In scheduling, patient has Medicare Part A only. Reviewed with central scheduling and patient would have to pay 50% upfront. Spoke with and confirmed patient is self pay with medicare part A. Instructed will have product communications manager arrange for financial counseling/assistance with [facility] prior to any appts/tests/procedures. Routed to Clau Wesley to arrange and call patient back [facility] 36on 01-31-2025 36 Left message for vanessa miller to call office back to schedule CT scan on 02/19 [place] [address] 01-29-2025 36 Patient scheduled in valve clinic on 02/19 for aortic stenosis, cath and echo completed by Dr. Flores's office. BMP completed 01/08/25 in media. Pended order for CTA TAVR, CONTROL CLERK to sign. Will call patient to schedule same day as OV. [place] [address] 01-28-2025 36 Chart made and COMPLEX DIRECTOR ondina herr mailed [place] [address] 01-22-2025 36 VC appt made for 01/30 09/25 I need to make chart and mail COMPLEX DIRECTOR packet [facility] Oncology Visit Reporton 12-30 Oncology Visit Report Normal [facility] Absolute lymphocyte countOrd ered By: Malinda Webster on 01-08-2025 Lymphocytes Auto (Unsp spec) [#/Vol] 0.70 10*3/uL Low 0.83-4.51 [facility] Anion gap in Serum or Plasma Ordered By: Malinda Webster on 01-08-2025 Anion gap [Moles/Vol] 12 mmol/L 5-15 [facility] Automated lymphocyte count a s percentage of total leukocytesOrdered By: Malinda Webster on 01-08-2025 Lymphocytes/100 WBC Auto (Unsp spec) 12.0 % Low 19-41 [facility] BUN/creatinine ratioOrdered By: Malinda Webster on 01-08-2025 Urea nitrogen/Creatinine [Mass ratio] 12.0 mg/mg 05-20 [facility] Basic Metabolic Profile (BMP )on 01-08-2025 BUN/CRE 12.0 RATIO Normal 05-20 [facility] Comment on above: Performed By: #### L 100.0100, L500.2500 ####[facility] [address] [place], [address] Calcium [Mass/Vol] 9.3 mg/dL Normal 7.6-11.0 [facility] Comment on above: Performed By: #### L 100.0100, L500.2500 ####[facility] [address] [place], [address] Chloride [Moles/Vol] 96 mmol/L Low 98-108 [facility] Comment on above: Performed By: #### L 100.0100, L500.2500 ####[facility] [address] [place], [address] CO2 [Moles/Vol] 23.4 mmol/L Normal 21.0-32.0 [facility] Comment on above: Performed By: #### L 100.0100, L500.2500 ####[facility] [address] [place], [address] Creatinine [Mass/Vol] 0.97 mg/dL Normal 0.70-1.20 [facility] Comment on above: Performed By: #### L 100.0100, L500.2500 ####[facility] [address] [place], [address] GAP 12 Normal 5-15 [facility] Comment on above: Performed By: #### L 100.0100, L500.2500 ####[facility] [address] [place], [address] GFR/1.73 sq M.predicted among non-blacks MDRD (S/P/Bld) [Vol rate/Area] 79 mL/min/{1.73_m2} Normal >60 [facility] Comment on above: Result Comment: mL/m in/1.73m2 CKD-EPI Creatinine Equation (2020) Performed By: #### L 100.0100, L500.2500 ####[facility] [address] [place], [address] Glucose [Mass/Vol] 102 mg/dL High 70-99 [facility] Comment on above: Performed By: #### L 100.0100, L500.2500 ####[facility] [address] [place], [address] Potassium [Moles/Vol] 4.4 mmol/L Normal 3.3-5.1 [facility] Comment on above: Performed By: #### L 100.0100, L500.2500 ####[facility] [address] [place], [address] Sodium [Moles/Vol] 131 mmol/L Low 133-145 [facility] Comment on above: Performed By: #### L 100.0100, L500.2500 ####[facility] [address] [place], [address] Urea nitrogen [Mass/Vol] 12 mg/dL Normal 4-19 [facility] Comment on above: Performed By: #### L 100.0100, L500.2500 ####[facility] [address] [place], [address] Basophil percentageOrdered B y: Malinda Webster on 01-08-2025 Basophils/100 WBC (Bld) 0.2 % 0-1 [facility] CBC W/Diff, Automatedon 12-30-2024 Absolute Lymph 0.70 X10 3/uL Low 0.83-4.51 [facility] Comment on above: Performed By: #### L 100.0100, L500.2500 ####[facility] [address] [place], [address] Absolute Neut 4.3 X10 3/uL Normal 2.0-7.7 [facility] Comment on above: Performed By: #### L 100.0100, L500.2500 ####[facility] [address] [place], [address] Basophils/100 WBC (Bld) 0.2 % Normal 0-1 [facility] Comment on above: Performed By: #### L 100.0100, L500.2500 ####[facility] [address] [place], [address] Eosinophils/100 WBC (Bld) 1.2 % Normal 0-5 [facility] Comment on above: Performed By: #### L 100.0100, L500.2500 ####[facility] [address] [place], [address] Erythrocyte distribution width (RBC) [Ratio] 12.7 % Normal 11.6-14.6 [facility] Comment on above: Performed By: #### L 100.0100, L500.2500 ####[facility] [address] [place], [address] Hematocrit (Bld) [Volume fraction] 32.6 % Low 40-54 [facility] Comment on above: Performed By: #### L 100.0100, L500.2500 ####[facility] [address] [place], [address] Hemoglobin (Bld) [Mass/Vol] 10.9 g/dL Low 13.0-16.5 [facility] Comment on above: Performed By: #### L 100.0100, L500.2500 ####[facility] [address] [place], [address] IG% 0.200 Normal 0.0-0.9 [facility] Comment on above: Result Comment: IG% - Immature Granulocytes (promyelocytes, myelocytes andmetamyelocytes) > 1% indicates that a LEFT SHIFT is Present. Performed By: #### L 100.0100, L500.2500 ####[facility] [address] [place], [address] Lymphocytes/100 WBC (Bld) 12.0 % Low 19-41 [facility] Comment on above: Performed By: #### L 100.0100, L500.2500 ####[facility] [address] [place], [address] MCH (RBC) [Entitic mass] 29.1 pg Normal 27.0-32.0 [facility] Comment on above: Performed By: #### L 100.0100, L500.2500 ####[facility] [address] [place], [address] MCHC (RBC) [Mass/Vol] 33.4 g/dL Normal 32-36 [facility] Comment on above: Performed By: #### L 100.0100, L500.2500 ####[facility] [address] [place], [address] MCV (RBC) [Entitic vol] 86.9 fL Normal 80-94 [facility] Comment on above: Performed By: #### L 100.0100, L500.2500 ####[facility] [address] [place], [address] Monocytes/100 WBC (Bld) 11.9 % High 0-10 [facility] Comment on above: Performed By: #### L 100.0100, L500.2500 ####[facility] [address] [place], [address] Neutrophils/100 WBC (Bld) 74.5 % High 47-70 [facility] Comment on above: Performed By: #### L 100.0100, L500.2500 ####[facility] [address] [place], [address] Nucleated RBC (Bld) [#/Vol] 0 10*3/uL Normal 0-5 [facility] Comment on above: Performed By: #### L 100.0100, L500.2500 ####[facility] [address] [place], [address] Platelet mean volume (Bld) [Entitic vol] 10.1 fL Normal 6.2-12.0 [facility] Comment on above: Performed By: #### L 100.0100, L500.2500 ####[facility] [address] [place], [address] Platelets (Bld) [#/Vol] 243 10*3/uL Normal 150-450 [facility] Comment on above: Performed By: #### L 100.0100, L500.2500 ####[facility] [address] [place], [address] RBC (Bld) [#/Vol] 3.75 10*6/uL Low 4.6-6.2 [facility] Comment on above: Performed By: #### L 100.0100, L500.2500 ####[facility] [address] [place], [address] RDW SD 40.5 fl Normal 35.1-43.9 [facility] Comment on above: Performed By: #### L 100.0100, L500.2500 ####[facility] [address] [place], [address] WBC (Bld) [#/Vol] 5.8 10*3/uL Normal 4.4-11.0 [facility] Comment on above: Performed By: #### L 100.0100, L500.2500 ####[facility] [address] [place], [address] Carbon dioxide, total [Moles /volume] in Central venous bloodOrdered By: Malinda Webster on 01-08-2025 CO2 [Moles/Vol] 23.4 mmol/L 21.0-32.0 [facility] Chloride assayOrdered By: Santa Webster on 01-08-2025 Chloride [Moles/Vol] 96 mmol/L Low 98-108 [facility] Eosinophil percentageOrdered By: Malinda Webster on 01-08-2025 Eosinophils/100 WBC (Bld) 1.2 % 0-5 [facility] Erythrocyte distribution wid th ratioOrdered By: Malinda Webster on 01-08-2025 Erythrocyte distribution width (RBC) [Ratio] 12.7 % 11.6-14.6 [facility] Erythrocyte distribution wid th standard deviationOrdered By: Malinda Webster on 01-08-2025 Erythrocyte distribution width (RBC) [Ratio] 40.5 fl 35.1-43.9 [facility] Glomerular filtration rate ( GFR) estimation/1.73 sq m using serum, plasma, or whole bOrdered By: Malinda Webster on 01-08-2025 GFR/1.73 sq M.predicted among non-blacks MDRD (S/P/Bld) [Vol rate/Area] 79 mL/min/{1.73_m2} >60 [facility] Hematocrit Auto (Bld) [Volum e fraction]Ordered By: Malinda Webster on 01-08-2025 Hematocrit (Bld) [Volume fraction] 32.6 % Low 40-54 [facility] Hemoglobin measurementOrdere d By: Malinda Webster on 01-08-2025 Hemoglobin (Bld) [Mass/Vol] 10.9 g/dL Low 13.0-16.5 [facility] Immature granulocytes/100 WB C Auto (Bld)Ordered By: Malinda Webster on 01-08-2025 Immature granulocytes/100 WBC (Bld) 0.200 % 0.0-0.9 [facility] MCV (mean corpuscular volume ) determinationOrdered By: Malinda Webster on 01-08-2025 MCV (RBC) [Entitic vol] 86.9 fL 80-94 [facility] Mean corpuscular hemoglobin (MCH) determinationOrdered By: Malinda Webster on 01-08-2025 MCH (RBC) [Entitic mass] 29.1 pg 27.0-32.0 [facility] Monocyte percentageOrdered B y: Malinda Webster on 01-08-2025 Monocytes/100 WBC (Bld) 11.9 % High 0-10 [facility] Neutrophil percentageOrdered By: Malinda Webster on 01-08-2025 Neutrophils/100 WBC (Bld) 74.5 % High 47-70 [facility] Platelet countOrdered By: Santa Webster on 01-08-2025 Platelets (Bld) [#/Vol] 243 10*3/uL 150-450 [facility] Potassium measurement (mass/ volume)Ordered By: Malinda Webster on 01-08-2025 Potassium (Unsp spec) [Mass/Vol] 4.4 mmol/L 3.3-5.1 [facility] RBC Auto (Bld) [#/Vol]Ordere d By: Malinda Webster on 01-08-2025 RBC (Bld) [#/Vol] 3.75 10*6/uL Low 4.6-6.2 [facility] Serum creatinine measurement (mass/volume)Ordered By: Malinda Webster on 01-08-2025 Creatinine [Mass/Vol] 0.97 mg/dL 0.70-1.20 [facility] Serum glucose measurement (m ass/volume)Ordered By: Malinda Webster on 01-08-2025 Glucose [Mass/Vol] 102 mg/dL High 70-99 [facility] Serum or plasma calcium shagufta urement (mass/volume)Ordered By: Malinda Webster on 01-08-2025 Calcium [Mass/Vol] 9.3 mg/dL 7.6-11.0 [facility] Serum or plasma urea nitroge n measurement (mass/volume)Ordered By: Malinda Webster on 01-08-2025 Urea nitrogen [Mass/Vol] 12 mg/dL 4-19 [facility] Sodium levelOrdered By: Malinda Webster on 01-08-2025 Sodium [Moles/Vol] 131 mmol/L Low 133-145 [facility] White blood cell (WBC) count Ordered By: Malinda Webster on 01-08-2025 WBC (Bld) [#/Vol] 5.8 10*3/uL 4.4-11.0 [facility] Carcinoembryonic Antigenon 0 - CEA 47.8 ng/mL High 0.0-4.7 [facility] Comment on above: Order Comment: MALINDA WEBSTER ORDERED CBCD Result Comment: Nons mokers <3.9 Smokers <5.6[employer] Electrochemiluminescence Immunoassay(ECLIA)Values obtained with different assay methods or kitscannot be used interchangeably. Results cannot beinterpreted as absolute evidence of the presence orabsence of malignant disease.Performed at: [facility] [address] [id number] Director: Jian Paredes PhD, Phone: [phone] Performed By: #### L 3100.2300, L100.0100, L503.6550, L503.6030, L500.4050 ####[facility] [address] [place], [address] Absolute lymphocyte countOrd ered By: Thaareli Araujo on 12-14-2024 Lymphocytes Auto (Unsp spec) [#/Vol] 0.68 10*3/uL Low 0.83-4.51 [facility] Anion gap in Serum or Plasma Ordered By: [facility] on 12-14-2024 Anion gap [Moles/Vol] 12 mmol/L 5-15 [facility] Automated lymphocyte count a s percentage of total leukocytesOrdered By: [facility] on 12-14-2024 Lymphocytes/100 WBC Auto (Unsp spec) 9.9 % Low 19-41 [facility] BUN/creatinine ratioOrdered By: [facility] on 12-14-2024 Urea nitrogen/Creatinine [Mass ratio] 11.3 mg/mg 10-20 [facility] Basophil percentageOrdered B y: Brenda Araujo on 12-14-2024 Basophils/100 WBC (Bld) 0.4 % 0-1 [facility] Bilirubin, totalOrdered By: [facility] on 12-14-2024 Bilirubin [Mass/Vol] 0.51 mg/dL 0.00-1.30 [facility] CBC W/Diff, Automatedon 11-29 Absolute Lymph 0.68 X10 3/uL Low 0.83-4.51 [facility] Comment on above: Order Comment: MALINDA WEBSTER ORDERED CBCD Performed By: #### L 3100.2300, L100.0100, L503.6550, L503.6030, L500.4050 ####[facility] [address] [place], [place], [id number] Absolute Neut 5.5 X10 3/uL Normal 2.0-7.7 [facility] Comment on above: Order Comment: MALINDA WEBSTER ORDERED CBCD Performed By: #### L 3100.2300, L100.0100, L503.6550, L503.6030, L500.4050 ####[facility] [address] [place], [address] Basophils/100 WBC (Bld) 0.4 % Normal 0-1 [facility] Comment on above: Order Comment: MALINDA WEBSTER ORDERED CBCD Performed By: #### L 3100.2300, L100.0100, L503.6550, L503.6030, L500.4050 ####[facility] [address] [place], [address] Eosinophils/100 WBC (Bld) 0.4 % Normal 0-5 [facility] Comment on above: Order Comment: MALINDA WEBSTER ORDERED CBCD Performed By: #### L 3100.2300, L100.0100, L503.6550, L503.6030, L500.4050 ####[facility] [address] [place], [address] Erythrocyte distribution width (RBC) [Ratio] 12.8 % Normal 11.6-14.6 [facility] Comment on above: Order Comment: MALINDA WEBSTER ORDERED CBCD Performed By: #### L 3100.2300, L100.0100, L503.6550, L503.6030, L500.4050 ####[facility] [address] [place], [address] Hematocrit (Bld) [Volume fraction] 31.4 % Low 40-54 [facility] Comment on above: Order Comment: MALINDA WEBSTER ORDERED CBCD Performed By: #### L 3100.2300, L100.0100, L503.6550, L503.6030, L500.4050 ####[facility] [address] [place], [address] Hemoglobin (Bld) [Mass/Vol] 10.8 g/dL Low 13.0-16.5 [facility] Comment on above: Order Comment: MALINDA WEBSTER ORDERED CBCD Performed By: #### L 3100.2300, L100.0100, L503.6550, L503.6030, L500.4050 ####[facility] [address] [place], [address] IG% 0.400 Normal 0.0-0.9 [facility] Comment on above: Order Comment: MALINDA WEBSTER ORDERED CBCD Result Comment: IG% - Immature Granulocytes (promyelocytes, myelocytes andmetamyelocytes) > 1% indicates that a LEFT SHIFT is Present. Performed By: #### L 3100.2300, L100.0100, L503.6550, L503.6030, L500.4050 ####[facility] [address] [place], [address] Lymphocytes/100 WBC (Bld) 9.9 % Low 19-41 [facility] Comment on above: Order Comment: MALINDA WEBSTER ORDERED CBCD Performed By: #### L 3100.2300, L100.0100, L503.6550, L503.6030, L500.4050 ####[facility] [address] [place], [address] MCH (RBC) [Entitic mass] 30.6 pg Normal 27.0-32.0 [facility] Comment on above: Order Comment: MALINDA DARIN ORDERED CBCD Performed By: #### L 3100.2300, L100.0100, L503.6550, L503.6030, L500.4050 ####[facility] [address] [place], [address] MCHC (RBC) [Mass/Vol] 34.4 g/dL Normal 32-36 [facility] Comment on above: Order Comment: MALINDA DARIN ORDERED CBCD Performed By: #### L 3100.2300, L100.0100, L503.6550, L503.6030, L500.4050 ####[facility] [address] [place], [address] MCV (RBC) [Entitic vol] 89.0 fL Normal 80-94 [facility] Comment on above: Order Comment: MALINDA WEBSTER ORDERED CBCD Performed By: #### L 3100.2300, L100.0100, L503.6550, L503.6030, L500.4050 ####[facility] [address] [place], [address] Monocytes/100 WBC (Bld) 8.6 % Normal 0-10 [facility] Comment on above: Order Comment: MALINDA WEBSTER ORDERED CBCD Performed By: #### L 3100.2300, L100.0100, L503.6550, L503.6030, L500.4050 ####[facility] [address] [place], [address] Neutrophils/100 WBC (Bld) 80.3 % High 47-70 [facility] Comment on above: Order Comment: MALINDA WEBSTER ORDERED CBCD Performed By: #### L 3100.2300, L100.0100, L503.6550, L503.6030, L500.4050 ####[facility] [address] [place], [address] Nucleated RBC (Bld) [#/Vol] 0 10*3/uL Normal 0-5 [facility] Comment on above: Order Comment: MALINDA WEBSTER ORDERED CBCD Performed By: #### L 3100.2300, L100.0100, L503.6550, L503.6030, L500.4050 ####[facility] [address] [place], [address] Platelet mean volume (Bld) [Entitic vol] 9.6 fL Normal 6.2-12.0 [facility] Comment on above: Order Comment: MALINDA WEBSTER ORDERED CBCD Performed By: #### L 3100.2300, L100.0100, L503.6550, L503.6030, L500.4050 ####[facility] [address] [place], [address] Platelets (Bld) [#/Vol] 312 10*3/uL Normal 150-450 [facility] Comment on above: Order Comment: MALINDA WEBSTER ORDERED CBCD Performed By: #### L 3100.2300, L100.0100, L503.6550, L503.6030, L500.4050 ####[facility] [address] [place], [address] RBC (Bld) [#/Vol] 3.53 10*6/uL Low 4.6-6.2 [facility] Comment on above: Order Comment: MALINDA WEBSTER ORDERED CBCD Performed By: #### L 3100.2300, L100.0100, L503.6550, L503.6030, L500.4050 ####[facility] [address] [place], [address] RDW SD 41.6 fl Normal 35.1-43.9 [facility] Comment on above: Order Comment: MALINDA WEBSTER ORDERED CBCD Performed By: #### L 3100.2300, L100.0100, L503.6550, L503.6030, L500.4050 ####[facility] [address] [place], [address] WBC (Bld) [#/Vol] 6.9 10*3/uL Normal 4.4-11.0 [facility] Comment on above: Order Comment: MALINDA WEBSTER ORDERED CBCD Performed By: #### L 3100.2300, L100.0100, L503.6550, L503.6030, L500.4050 ####[facility] [address] [place], [address] Absolute Neut Normal 2.0-7.7 [facility] Comment on above: Result Comment: CBCD ORDER ON OTHER REQ Performed By: #### L 100.0100 ####[facility] [address] [place], [address] HCT Normal 40-54 [facility] Comment on above: Result Comment: CBCD ORDER ON OTHER REQ Performed By: #### L 100.0100 ####[facility] [address] [place], [address] HGB Normal 13.0-16.5 [facility] Comment on above: Result Comment: CBCD ORDER ON OTHER REQ Performed By: #### L 100.0100 ####[facility] [address] [place], [address] MCH Normal 27.0-32.0 [facility] Comment on above: Result Comment: CBCD ORDER ON OTHER REQ Performed By: #### L 100.0100 ####[facility] [address] [place], [address] MCHC Normal 32-36 [facility] Comment on above: Result Comment: CBCD ORDER ON OTHER REQ Performed By: #### L 100.0100 ####[facility] [address] [place], [address] MCV Normal 80-94 [facility] Comment on above: Result Comment: CBCD ORDER ON OTHER REQ Performed By: #### L 100.0100 ####[facility] [address] [place], [address] NEUT% Normal 47-70 [facility] Comment on above: Result Comment: CBCD ORDER ON OTHER REQ Performed By: #### L 100.0100 ####[facility] [address] [place], [address] PLT Normal 150-450 [facility] Comment on above: Result Comment: CBCD ORDER ON OTHER REQ Performed By: #### L 100.0100 ####[facility] [address] [place], [address] RBC Normal 4.6-6.2 [facility] Comment on above: Result Comment: CBCD ORDER ON OTHER REQ Performed By: #### L 100.0100 ####[facility] [address] [place], [address] RDW CV Normal 11.6-14.6 [facility] Comment on above: Result Comment: CBCD ORDER ON OTHER REQ Performed By: #### L 100.0100 ####[facility] [address] [place], [address] RDW SD Normal 35.1-43.9 [facility] Comment on above: Result Comment: CBCD ORDER ON OTHER REQ Performed By: #### L 100.0100 ####[facility] [address] [place], [address] WBC Normal 4.4-11.0 [facility] Comment on above: Result Comment: CBCD ORDER ON OTHER REQ Performed By: #### L 100.0100 ####[facility] [address] [place], [address] Carbon dioxide, total [Moles /volume] in Central venous bloodOrdered By: Brenda Araujo on 12-14-2024 CO2 [Moles/Vol] 23.4 mmol/L 21.0-32.0 [facility] Chest PA and Lateralon 12-14 Chest PA and Lateral Normal [facility] Chloride assayOrdered By: Kalen Araujo on 12-14-2024 Chloride [Moles/Vol] 97 mmol/L Low 98-108 [facility] Comprehensive Metabolic Prof ilon 12-14-2024 Albumin [Mass/Vol] 4.2 g/dL Normal 3.4-4.8 [facility] Comment on above: Order Comment: MALINDA WEBSTER ORDERED CBCD Performed By: #### L 3100.2300, L100.0100, L503.6550, L503.6030, L500.4050 ####[facility] [address] [place], [address] Albumin/Globulin [Mass ratio] 1.4 {ratio} Normal 0.9-2.4 [facility] Comment on above: Order Comment: MALINDA WEBSTER ORDERED CBCD Performed By: #### L 3100.2300, L100.0100, L503.6550, L503.6030, L500.4050 ####[facility] [address] [place], [address] ALK PHOS 116 U/L Normal 40-129 [facility] Comment on above: Order Comment: AMLINDA WEBSTER ORDERED CBCD Performed By: #### L 3100.2300, L100.0100, L503.6550, L503.6030, L500.4050 ####[facility] [address] [place], [address] ALT [Catalytic activity/Vol] 11 U/L Normal <=46 [facility] Comment on above: Order Comment: MALINDA WEBSTER ORDERED CBCD Performed By: #### L 3100.2300, L100.0100, L503.6550, L503.6030, L500.4050 ####[facility] [address] [place], [address] AST [Catalytic activity/Vol] 24 U/L Normal <=37 [facility] Comment on above: Order Comment: MALINDA WEBSTER ORDERED CBCD Performed By: #### L 3100.2300, L100.0100, L503.6550, L503.6030, L500.4050 ####[facility] [address] [place], [address] Bilirubin [Mass/Vol] 0.51 mg/dL Normal 0.00-1.30 [facility] Comment on above: Order Comment: MALINDA WEBSTER ORDERED CBCD Performed By: #### L 3100.2300, L100.0100, L503.6550, L503.6030, L500.4050 ####[facility] [address] [place], [address] BUN/CRE 11.3 RATIO Normal 10-20 [facility] Comment on above: Order Comment: MALINDA WEBSTER ORDERED CBCD Performed By: #### L 3100.2300, L100.0100, L503.6550, L503.6030, L500.4050 ####[facility] [address] [place], [address] Calcium [Mass/Vol] 9.3 mg/dL Normal 7.6-11.0 [facility] Comment on above: Order Comment: MALINDA WEBSTER ORDERED CBCD Performed By: #### L 3100.2300, L100.0100, L503.6550, L503.6030, L500.4050 ####[facility] [address] [place], [address] Chloride [Moles/Vol] 97 mmol/L Low 98-108 [facility] Comment on above: Order Comment: MALINDA WEBSTER ORDERED CBCD Performed By: #### L 3100.2300, L100.0100, L503.6550, L503.6030, L500.4050 ####[facility] [address] [place], [address] CO2 [Moles/Vol] 23.4 mmol/L Normal 21.0-32.0 [facility] Comment on above: Order Comment: MALINDA WEBSTER ORDERED CBCD Performed By: #### L 3100.2300, L100.0100, L503.6550, L503.6030, L500.4050 ####[facility] [address] [place], [address] Creatinine [Mass/Vol] 1.00 mg/dL Normal 0.70-1.20 [facility] Comment on above: Order Comment: MALINDA WEBSTER ORDERED CBCD Performed By: #### L 3100.2300, L100.0100, L503.6550, L503.6030, L500.4050 ####[facility] [address] [place], [address] GAP 12 Normal 5-15 [facility] Comment on above: Order Comment: MALINDA WEBSTER ORDERED CBCD Performed By: #### L 3100.2300, L100.0100, L503.6550, L503.6030, L500.4050 ####[facility] [address] [place], [address] GFR/1.73 sq M.predicted among non-blacks MDRD (S/P/Bld) [Vol rate/Area] 76 mL/min/{1.73_m2} Normal >60 [facility] Comment on above: Order Comment: MALINDA WEBSTER ORDERED CBCD Result Comment: mL/m in/1.73m2 CKD-EPI Creatinine Equation (2020) Performed By: #### L 3100.2300, L100.0100, L503.6550, L503.6030, L500.4050 ####[facility] [address] [place], [address] Globulin (S) [Mass/Vol] 3.0 g/dL Normal 2.2-4.2 [facility] Comment on above: Order Comment: MALINDA WEBSTER ORDERED CBCD Performed By: #### L 3100.2300, L100.0100, L503.6550, L503.6030, L500.4050 ####[facility] [address] [place], [address] Glucose [Mass/Vol] 106 mg/dL High 70-99 [facility] Comment on above: Order Comment: MALINDA WEBSTER ORDERED CBCD Performed By: #### L 3100.2300, L100.0100, L503.6550, L503.6030, L500.4050 ####[facility] [address] [place], [address] Potassium [Moles/Vol] 3.8 mmol/L Normal 3.3-5.1 [facility] Comment on above: Order Comment: MALINDA WEBSTER ORDERED CBCD Performed By: #### L 3100.2300, L100.0100, L503.6550, L503.6030, L500.4050 ####[facility] [address] [place], [address] Sodium [Moles/Vol] 133 mmol/L Normal 133-145 [facility] Comment on above: Order Comment: MALINDA DARIN ORDERED CBCD Performed By: #### L 3100.2300, L100.0100, L503.6550, L503.6030, L500.4050 ####[facility] [address] [place], [address] T PROT 7.3 g/dL Normal 5.9-8.4 [facility] Comment on above: Order Comment: MALINDA DARIN ORDERED CBCD Performed By: #### L 3100.2300, L100.0100, L503.6550, L503.6030, L500.4050 ####[facility] [address] [place], [address] Urea nitrogen [Mass/Vol] 11 mg/dL Normal 4-19 [facility] Comment on above: Order Comment: MALINDA WEBSTER ORDERED CBCD Performed By: #### L 3100.2300, L100.0100, L503.6550, L503.6030, L500.4050 ####[facility] [address] [place], [address] Eosinophil percentageOrdered By: Brenda Araujo on 12-14-2024 Eosinophils/100 WBC (Bld) 0.4 % 0-5 [facility] Erythrocyte distribution wid th ratioOrdered By: Brenda Araujo on 12-14-2024 Erythrocyte distribution width (RBC) [Ratio] 12.8 % 11.6-14.6 [facility] Erythrocyte distribution wid th standard deviationOrdered By: Brenda Araujo on 12-14-2024 Erythrocyte distribution width (RBC) [Ratio] 41.6 fl 35.1-43.9 [facility] Ferritinon 12-14-2024 Ferritin [Mass/Vol] 49 ng/mL Normal 37-417 [facility] Comment on above: Order Comment: MALINDA WEBSTER ORDERED CBCD Performed By: #### L 3100.2300, L100.0100, L503.6550, L503.6030, L500.4050 ####[facility] [address] [place], [place], [id number] Glomerular filtration rate ( GFR) estimation/1.73 sq m using serum, plasma, or whole bOrdered By: Brenda Araujo on 12-14-2024 GFR/1.73 sq M.predicted among non-blacks MDRD (S/P/Bld) [Vol rate/Area] 76 mL/min/{1.73_m2} >60 [facility] Hematocrit Auto (Bld) [Volum e fraction]Ordered By: [facility] on 12-14-2024 Hematocrit (Bld) [Volume fraction] 31.4 % Low 40-54 [facility] Hemoglobin measurementOrdere d By: Brenda Araujo on 12-14-2024 Hemoglobin (Bld) [Mass/Vol] 10.8 g/dL Low 13.0-16.5 [facility] Immature granulocytes/100 WB C Auto (Bld)Ordered By: [facility] on 12-14-2024 Immature granulocytes/100 WBC (Bld) 0.400 % 0.0-0.9 [facility] Iron measurement (mass/mass) Ordered By: Brenda Aarujo on 12-14-2024 Iron (Unsp spec) [Mass/Mass] 24 ug/dL Low 65-175 [facility] Iron+Iron Binding Capacityon 12-14-2024 Iron [Mass/Vol] 24 ug/dL Low 65-175 [facility] Comment on above: Order Comment: MAILNDA WEBSTER ORDERED CBCD Performed By: #### L 3100.2300, L100.0100, L503.6550, L503.6030, L500.4050 ####[facility] [address] [place], [place], [id number] IRON SATURATION 8.0 Low 9-55 [facility] Comment on above: Order Comment: MALINDA WEBSTER ORDERED CBCD Performed By: #### L 3100.2300, L100.0100, L503.6550, L503.6030, L500.4050 ####[facility] [address] [place], [address] TIBC 314 ug/dL Normal 250-450 [facility] Comment on above: Order Comment: MALINDA WEBSTER ORDERED CBCD Performed By: #### L 3100.2300, L100.0100, L503.6550, L503.6030, L500.4050 ####[facility] [address] [place], [address] UIBC 290 ug/dL Normal 228-428 [facility] Comment on above: Order Comment: MALINDA WEBSTER ORDERED CBCD Performed By: #### L 3100.2300, L100.0100, L503.6550, L503.6030, L500.4050 ####[facility] [address] [place], [address] MCV (mean corpuscular volume ) determinationOrdered By: Brenda Araujo on 12-14-2024 MCV (RBC) [Entitic vol] 89.0 fL 80-94 [facility] Mean corpuscular hemoglobin (MCH) determinationOrdered By: Brenda Araujo on 12-14-2024 MCH (RBC) [Entitic mass] 30.6 pg 27.0-32.0 [facility] Monocyte percentageOrdered B y: Brenda Araujo on 12-14-2024 Monocytes/100 WBC (Bld) 8.6 % 0-10 [facility] Neutrophil percentageOrdered By: Brenda Araujo on 12-14-2024 Neutrophils/100 WBC (Bld) 80.3 % High 47-70 [facility] No Panel InformationOrdered By: Brenda Araujo on 12-14-2024 24 U/L <38 [facility] 290 ug/dL 228-428 [facility] Platelet countOrdered By: Kalen Araujo on 12-14-2024 Platelets (Bld) [#/Vol] 312 10*3/uL 150-450 [facility] Potassium measurement (mass/ volume)Ordered By: Brenda Araujo on 12-14-2024 Potassium (Unsp spec) [Mass/Vol] 3.8 mmol/L 3.3-5.1 [facility] RBC Auto (Bld) [#/Vol]Ordere d By: Brenda Araujo on 12-14-2024 RBC (Bld) [#/Vol] 3.53 10*6/uL Low 4.6-6.2 [facility] Serum creatinine measurement (mass/volume)Ordered By: Brenda Araujo on 12-14-2024 Creatinine [Mass/Vol] 1.00 mg/dL 0.70-1.20 [facility] Serum globulin measurementOr dered By: Brenda Araujo on 12-14-2024 Globulin (S) [Mass/Vol] 3.0 g/dL 2.2-4.2 [facility] Serum glucose measurement (m ass/volume)Ordered By: Brenda Araujo on 12-14-2024 Glucose [Mass/Vol] 106 mg/dL High 70-99 [facility] Serum or plasma alanine carrion otransferase (ALT) measurementOrdered By: Brenda Araujo on 12-14-2024 ALT [Catalytic activity/Vol] 11 U/L <47 [facility] Serum or plasma albumin shagufta urement (mass/volume)Ordered By: Brenda Araujo on 12-14-2024 Albumin [Mass/Vol] 4.2 g/dL 3.4-4.8 [facility] Serum or plasma albumin/glob ulin mass ratioOrdered By: Brenda Araujo on 12-14-2024 Albumin/Globulin [Mass ratio] 1.4 {ratio} 0.9-2.4 [facility] Serum or plasma alkaline airam sphatase measurementOrdered By: Brenda Araujo on 12-14-2024 ALP [Catalytic activity/Vol] 116 U/L 40-129 [facility] Serum or plasma calcium shagufta urement (mass/volume)Ordered By: Brenda Araujo on 12-14-2024 Calcium [Mass/Vol] 9.3 mg/dL 7.6-11.0 [facility] Serum or plasma carcinoembry onic antigen measurement (mass/volume)Ordered By: Brenda Araujo on 12-14-2024 Carcinoembryonic Ag [Mass/Vol] 47.8 ng/mL High 0.0-4.7 [facility] Serum or plasma ferritin francy surement (mass/volume)Ordered By: Brenda Araujo on 12-14-2024 Ferritin [Mass/Vol] 49 ng/mL 37-417 [facility] Serum or plasma iron saturat ion measurement (mass fraction)Ordered By: Brenda Araujo on 12-14-2024 Iron saturation [Mass fraction] 8.0 % Low 9-55 [facility] Serum or plasma urea nitroge n measurement (mass/volume)Ordered By: Brenda Araujo on 12-14-2024 Urea nitrogen [Mass/Vol] 11 mg/dL 4-19 [facility] Sodium levelOrdered By: Tha Araujo on 12-14-2024 Sodium [Moles/Vol] 133 mmol/L 133-145 [facility] Total proteinOrdered By: Rahul Araujo on 12-14-2024 Protein [Mass/Vol] 7.3 g/dL 5.9-8.4 [facility] White blood cell (WBC) count Ordered By: Brneda Araujo on 12-14-2024 WBC (Bld) [#/Vol] 6.9 10*3/uL 4.4-11.0 [facility] Surgical pathology reportOrd ered By: Teresa Martel on 12-06-2024 Surgical pathology study [facility] Absolute lymphocyte countOrd ered By: Darrel Watts on 12-05-2024 Lymphocytes Auto (Unsp spec) [#/Vol] 0.91 10*3/uL 0.83-4.51 [facility] Absolute neutrophil countOrd ered By: Darrel Watts on 12-05-2024 Neutrophils (Bld) [#/Vol] 5.6 10*3/uL 2.0-7.7 [facility] Activated partial thrombopla stin time (aPTT) in platelet poor plasma by coagulation aOrdered By: Darrel Watts on 12-05-2024 aPTT Coag (PPP) [Time] 34.0 s 24.1-36.2 [facility] Automated lymphocyte count a s percentage of total leukocytesOrdered By: Darrel Mac on 12-05-2024 Lymphocytes/100 WBC Auto (Unsp spec) 12.1 % Low 19-41 [facility] Basophil percentageOrdered B y: Darrel Watts on 12-05-2024 Basophils/100 WBC (Bld) 0.3 % 0-1 [facility] Biopsy/Inj or Needle Placeme nton 12-05-2024 Biopsy/Inj or Needle Placement Normal [facility] CBC W/Diff, Automatedon Absolute Lymph 0.91 X10 3/uL Normal 0.83-4.51 [facility] Comment on above: Performed By: #### L 300.3900, L100.0100, L300.4310 ####[facility] [address] [place], [address] Absolute Neut 5.6 X10 3/uL Normal 2.0-7.7 [facility] Comment on above: Performed By: #### L 300.3900, L100.0100, L300.4310 ####[facility] [address] [place], [address] Basophils/100 WBC (Bld) 0.3 % Normal 0-1 [facility] Comment on above: Performed By: #### L 300.3900, L100.0100, L300.4310 ####[facility] [address] [place], [address] Eosinophils/100 WBC (Bld) 2.3 % Normal 0-5 [facility] Comment on above: Performed By: #### L 300.3900, L100.0100, L300.4310 ####[facility] [address] [place], [address] Erythrocyte distribution width (RBC) [Ratio] 12.7 % Normal 11.6-14.6 [facility] Comment on above: Performed By: #### L 300.3900, L100.0100, L300.4310 ####[facility] [address] [place], [address] Hematocrit (Bld) [Volume fraction] 29.2 % Low 40-54 [facility] Comment on above: Performed By: #### L 300.3900, L100.0100, L300.4310 ####[facility] [address] [place], [address] Hemoglobin (Bld) [Mass/Vol] 10.0 g/dL Low 13.0-16.5 [facility] Comment on above: Performed By: #### L 300.3900, L100.0100, L300.4310 ####[facility] [address] [place], [address] IG% 0.300 Normal 0.0-0.9 [facility] Comment on above: Result Comment: IG% - Immature Granulocytes (promyelocytes, myelocytes andmetamyelocytes) > 1% indicates that a LEFT SHIFT is Present. Performed By: #### L 300.3900, L100.0100, L300.4310 ####[facility] [address] [place], [address] Lymphocytes/100 WBC (Bld) 12.1 % Low 19-41 [facility] Comment on above: Performed By: #### L 300.3900, L100.0100, L300.4310 ####[facility] [address] [place], [address] MCH (RBC) [Entitic mass] 30.4 pg Normal 27.0-32.0 [facility] Comment on above: Performed By: #### L 300.3900, L100.0100, L300.4310 ####[facility] [address] [place], [address] MCHC (RBC) [Mass/Vol] 34.2 g/dL Normal 32-36 [facility] Comment on above: Performed By: #### L 300.3900, L100.0100, L300.4310 ####[facility] [address] [place], [address] MCV (RBC) [Entitic vol] 88.8 fL Normal 80-94 [facility] Comment on above: Performed By: #### L 300.3900, L100.0100, L300.4310 ####[facility] [address] [place], [address] Monocytes/100 WBC (Bld) 10.8 % High 0-10 [facility] Comment on above: Performed By: #### L 300.3900, L100.0100, L300.4310 ####[facility] [address] [place], [address] Neutrophils/100 WBC (Bld) 74.2 % High 47-70 [facility] Comment on above: Performed By: #### L 300.3900, L100.0100, L300.4310 ####[facility] [address] [place], [address] Nucleated RBC (Bld) [#/Vol] 0 10*3/uL Normal 0-5 [facility] Comment on above: Performed By: #### L 300.3900, L100.0100, L300.4310 ####[facility] [address] [place], [address] Platelet mean volume (Bld) [Entitic vol] 8.8 fL Normal 6.2-12.0 [facility] Comment on above: Performed By: #### L 300.3900, L100.0100, L300.4310 ####[facility] [address] [place], [address] Platelets (Bld) [#/Vol] 334 10*3/uL Normal 150-450 [facility] Comment on above: Performed By: #### L 300.3900, L100.0100, L300.4310 ####[facility] [address] [place], [address] RBC (Bld) [#/Vol] 3.29 10*6/uL Low 4.6-6.2 [facility] Comment on above: Performed By: #### L 300.3900, L100.0100, L300.4310 ####[facility] [address] [place], [address] RDW SD 41.4 fl Normal 35.1-43.9 [facility] Comment on above: Performed By: #### L 300.3900, L100.0100, L300.4310 ####[facility] [address] [place], [address] WBC (Bld) [#/Vol] 7.5 10*3/uL Normal 4.4-11.0 [facility] Comment on above: Performed By: #### L 300.3900, L100.0100, L300.4310 ####[facility] [address] [place], [address] Eosinophil percentageOrdered By: Darrel Watts on 12-05-2024 Eosinophils/100 WBC (Bld) 2.3 % 0-5 [facility] Erythrocyte distribution wid th ratioOrdered By: Darrel aWtts on 12-05-2024 Erythrocyte distribution width (RBC) [Ratio] 12.7 % 11.6-14.6 [facility] Erythrocyte distribution wid th standard deviationOrdered By: Darrel Watts on 12-05-2024 Erythrocyte distribution width (RBC) [Ratio] 41.4 fl 35.1-43.9 [facility] Hematocrit Auto (Bld) [Volum e fraction]Ordered By: Darrel Watts on 12-05-2024 Hematocrit (Bld) [Volume fraction] 29.2 % Low 40-54 [facility] Hemoglobin measurementOrdere d By: Darrel Watts on 12-05-2024 Hemoglobin (Bld) [Mass/Vol] 10.0 g/dL Low 13.0-16.5 [facility] Immature granulocytes/100 WB C Auto (Bld)Ordered By: Darrel Watts on 12-05-2024 Immature granulocytes/100 WBC (Bld) 0.300 % 0.0-0.9 [facility] Comment on above: IG% - Immature Granu locytes (promyelocytes, myelocytes and metamyelocytes) > 1% indicates that a LEFT SHIFT is Present. Immunohistochemical Stainson 12-05-2024 Immunohistochemical Stains Normal [facility] Comment on above: Performed By: #### P IMHI ####[facility] [address] [place], [place], [address] International normalized rat io (INR) calculationOrdered By: Darrel Watts on 12-05-2024 INR Coag (Bld) [Relative time] 1.1 {INR} [facility] MCV (mean corpuscular volume ) determinationOrdered By: Darrel Watts on 12-05-2024 MCV (RBC) [Entitic vol] 88.8 fL 80-94 [facility] Mean corpuscular hemoglobin (MCH) determinationOrdered By: Darrel Watts on 12-05-2024 MCH (RBC) [Entitic mass] 30.4 pg 27.0-32.0 [facility] Mean corpuscular hemoglobin concentration (MCHC) determinationOrdered By: Darrel Watts on 12-05-2024 MCHC (RBC) [Mass/Vol] 34.2 g/dL 32-36 [facility] Mean platelet volume determi nationOrdered By: Darrel Watts on 12-05-2024 Platelet mean volume (Bld) [Entitic vol] 8.8 fL 6.2-12.0 [facility] Monocyte percentageOrdered B y: Darrel Watts on 12-05-2024 Monocytes/100 WBC (Bld) 10.8 % High 0-10 [facility] Neutrophil percentageOrdered By: Darrel Watts on 12-05-2024 Neutrophils/100 WBC (Bld) 74.2 % High 47-70 [facility] Nucleated red blood cell per centageOrdered By: Darrel Watts on 12-05-2024 Nucleated RBC/100 WBC (Bld) [Ratio] 0 % 0-5 [facility] Partial Thromboplast Timeon 12-05-2024 aPTT Coag (Bld) [Time] 34.0 s Normal 24.1-36.2 [facility] Comment on above: Performed By: #### L 300.3900, L100.0100, L300.4310 ####[facility] [address] [place], [address] Platelet countOrdered By: Gopi Watts on 12-05-2024 Platelets (Bld) [#/Vol] 334 10*3/uL 150-450 [facility] Prothrombin Time w/INRon INR Coag (PPP) [Relative time] 1.1 {INR} Normal [facility] Comment on above: Performed By: #### L 300.3900, L100.0100, L300.4310 ####[facility] [address] [place], [address] PT Coag (PPP) [Time] 14.0 s Normal 11.7-14.9 [facility] Comment on above: Performed By: #### L 300.3900, L100.0100, L300.4310 ####[facility] [address] [place], [address] Prothrombin timeOrdered By: Darrel Watts on 12-05-2024 PT Coag (PPP) [Time] 14.0 s 11.7-14.9 [facility] RBC Auto (Bld) [#/Vol]Ordere d By: Darrel Watts on 12-05-2024 RBC (Bld) [#/Vol] 3.29 10*6/uL Low 4.6-6.2 [facility] White blood cell (WBC) count Ordered By: Darrel Watts on 12-05-2024 WBC (Bld) [#/Vol] 7.5 10*3/uL 4.4-11.0 [facility] Gastroenterology Visit Repor ton 12-04-2024 Gastroenterology Visit Report Normal [facility] Chest WITH Contraston 2024 Chest WITH Contrast Normal [facility] Echo Complete W/ Contraston 11-28-2024 Echo Complete W/ Contrast Normal [facility] Oncology Visit Reporton 11-01 Oncology Visit Report Normal [facility] Absolute lymphocyte countOrd ered By: Neville Laine on 11-20-2024 Lymphocytes Auto (Unsp spec) [#/Vol] 1.21 10*3/uL 0.83-4.51 [facility] Absolute neutrophil countOrd ered By: Neville Jang on 11-20-2024 Neutrophils (Bld) [#/Vol] 7.6 10*3/uL 2.0-7.7 [facility] Automated lymphocyte count a s percentage of total leukocytesOrdered By: Neville Laine on 11-20-2024 Lymphocytes/100 WBC Auto (Unsp spec) 12.0 % Low 19-41 [facility] Basophil percentageOrdered B y: Neville Jang on 11-20-2024 Basophils/100 WBC (Bld) 0.3 % 0-1 [facility] CBC W/Diff, Automatedon 10-31 Absolute Lymph 1.21 X10 3/uL Normal 0.83-4.51 [facility] Comment on above: Performed By: #### L 100.0100 ####[facility] [address] [place], [address] Absolute Neut 7.6 X10 3/uL Normal 2.0-7.7 [facility] Comment on above: Performed By: #### L 100.0100 ####[facility] [address] [place], [address] Basophils/100 WBC (Bld) 0.3 % Normal 0-1 [facility] Comment on above: Performed By: #### L 100.0100 ####[facility] [address] [place], [address] Eosinophils/100 WBC (Bld) 1.7 % Normal 0-5 [facility] Comment on above: Performed By: #### L 100.0100 ####[facility] [address] [place], [address] Erythrocyte distribution width (RBC) [Ratio] 12.6 % Normal 11.6-14.6 [facility] Comment on above: Performed By: #### L 100.0100 ####[facility] [address] [place], [address] Hematocrit (Bld) [Volume fraction] 29.4 % Low 40-54 [facility] Comment on above: Performed By: #### L 100.0100 ####[facility] [address] [place], [address] Hemoglobin (Bld) [Mass/Vol] 10.3 g/dL Low 13.0-16.5 [facility] Comment on above: Performed By: #### L 100.0100 ####[facility] [address] [place], [address] IG% 0.300 Normal 0.0-0.9 [facility] Comment on above: Result Comment: IG% - Immature Granulocytes (promyelocytes, myelocytes andmetamyelocytes) > 1% indicates that a LEFT SHIFT is Present. Performed By: #### L 100.0100 ####[facility] [address] [place], [address] Lymphocytes/100 WBC (Bld) 12.0 % Low 19-41 [facility] Comment on above: Performed By: #### L 100.0100 ####[facility] [address] [place], [address] MCH (RBC) [Entitic mass] 30.8 pg Normal 27.0-32.0 [facility] Comment on above: Performed By: #### L 100.0100 ####[facility] [address] [place], [address] MCHC (RBC) [Mass/Vol] 35.0 g/dL Normal 32-36 [facility] Comment on above: Performed By: #### L 100.0100 ####[facility] [address] [place], [address] MCV (RBC) [Entitic vol] 88.0 fL Normal 80-94 [facility] Comment on above: Performed By: #### L 100.0100 ####[facility] [address] [place], [address] Monocytes/100 WBC (Bld) 10.2 % High 0-10 [facility] Comment on above: Performed By: #### L 100.0100 ####[facility] [address] [place], [address] Neutrophils/100 WBC (Bld) 75.5 % High 47-70 [facility] Comment on above: Performed By: #### L 100.0100 ####[facility] [address] [place], [address] Nucleated RBC (Bld) [#/Vol] 0 10*3/uL Normal 0-5 [facility] Comment on above: Performed By: #### L 100.0100 ####[facility] [address] [place], [address] Platelet mean volume (Bld) [Entitic vol] 8.7 fL Normal 6.2-12.0 [facility] Comment on above: Performed By: #### L 100.0100 ####[facility] [address] [place], [address] Platelets (Bld) [#/Vol] 314 10*3/uL Normal 150-450 [facility] Comment on above: Performed By: #### L 100.0100 ####[facility] [address] [place], [address] RBC (Bld) [#/Vol] 3.34 10*6/uL Low 4.6-6.2 [facility] Comment on above: Performed By: #### L 100.0100 ####[facility] [address] [place], [address] RDW SD 40.2 fl Normal 35.1-43.9 [facility] Comment on above: Performed By: #### L 100.0100 ####[facility] [address] [place], [address] WBC (Bld) [#/Vol] 10.1 10*3/uL Normal 4.4-11.0 [facility] Comment on above: Performed By: #### L 100.0100 ####[facility] [address] [place], [address] Colonoscopy Reporton Colonoscopy Report Normal [facility] Discharge Instructionon 10-31 Discharge Instruction Normal [facility] Eosinophil percentageOrdered By: Neville Jang on 11-20-2024 Eosinophils/100 WBC (Bld) 1.7 % 0-5 [facility] Erythrocyte distribution wid th (RBC) [Ratio]Ordered By: Neville Jang on 11-20-2024 Erythrocyte distribution width (RBC) [Entitic vol] 40.2 fL 35.1-43.9 [facility] Erythrocyte distribution wid th ratioOrdered By: Neville Jang on 11-20-2024 Erythrocyte distribution width (RBC) [Ratio] 12.6 % 11.6-14.6 [facility] Erythrocyte distribution wid th standard deviationOrdered By: Neville Jang on 11-20-2024 Erythrocyte distribution width (RBC) [Ratio] 40.2 fl 35.1-43.9 [facility] Hematocrit Auto (Bld) [Volum e fraction]Ordered By: Neville Jang on 11-20-2024 Hematocrit (Bld) [Volume fraction] 29.4 % Low 40-54 [facility] Hemoglobin measurementOrdere d By: Neville Jang on 11-20-2024 Hemoglobin (Bld) [Mass/Vol] 10.3 g/dL Low 13.0-16.5 [facility] Immature granulocytes/100 WB C Auto (Bld)Ordered By: Neville Jang on 11-20-2024 Immature granulocytes/100 WBC (Bld) 0.300 % 0.0-0.9 [facility] Comment on above: IG% - Immature Granu locytes (promyelocytes, myelocytes and metamyelocytes) > 1% indicates that a LEFT SHIFT is Present. Lymphocytes Auto (Unsp spec) [#/Vol]Ordered By: Neville Jang on 11-20-2024 Lymphocytes (Bld) [#/Vol] 1.21 10*3/uL 0.83-4.51 [facility] Lymphocytes/100 WBC Auto (Un sp spec)Ordered By: Neville Jang on 11-20-2024 Lymphocytes/100 WBC (Bld) 12.0 % Low 19-41 [facility] MCV (mean corpuscular volume ) determinationOrdered By: Neville Jang on 11-20-2024 MCV (RBC) [Entitic vol] 88.0 fL 80-94 [facility] MR/HROIKWOU6qf 11-20-2024 MR/POSTOPAN2 Normal [facility] Mean corpuscular hemoglobin (MCH) determinationOrdered By: Neville Jang on 11-20-2024 MCH (RBC) [Entitic mass] 30.8 pg 27.0-32.0 [facility] Mean corpuscular hemoglobin concentration (MCHC) determinationOrdered By: Neville Jang on 11-20-2024 MCHC (RBC) [Mass/Vol] 35.0 g/dL 32-36 [facility] Mean platelet volume determi nationOrdered By: Neville Jang on 11-20-2024 Platelet mean volume (Bld) [Entitic vol] 8.7 fL 6.2-12.0 [facility] Monocyte percentageOrdered B y: Neville Jang on 11-20-2024 Monocytes/100 WBC (Bld) 10.2 % High 0-10 [facility] Neutrophil percentageOrdered By: Neville Jang on 11-20-2024 Neutrophils/100 WBC (Bld) 75.5 % High 47-70 [facility] Nucleated red blood cell per centageOrdered By: Neville Jang on 11-20-2024 Nucleated RBC/100 WBC (Bld) [Ratio] 0 % 0-5 [facility] Platelet countOrdered By: Kalen Jang on 11-20-2024 Platelets (Bld) [#/Vol] 314 10*3/uL 150-450 [facility] RBC Auto (Bld) [#/Vol]Ordere d By: Neville Jang on 11-20-2024 RBC (Bld) [#/Vol] 3.34 10*6/uL Low 4.6-6.2 [facility] White blood cell (WBC) count Ordered By: Neville Jang on 11-20-2024 WBC (Bld) [#/Vol] 10.1 10*3/uL 4.4-11.0 [facility] Anion gap in Serum or Plasma Ordered By: Kelvin Schrader on 11-19-2024 Anion gap [Moles/Vol] 12 mmol/L 5- [facility] BUN/creatinine ratioOrdered By: Kelvin Schrader on 11-19-2024 Urea nitrogen/Creatinine [Mass ratio] 10.4 mg/mg 10- [facility] Basic Metabolic Profile (BMP )on 11-19-2024 BUN/CRE 10.4 RATIO Normal - [facility] Comment on above: Performed By: #### L 100.0100, L500.2500 ####[facility] [address] [place], [address] Calcium [Mass/Vol] 8.8 mg/dL Normal 7.6-11.0 [facility] Comment on above: Performed By: #### L 100.0100, L500.2500 ####[facility] [address] [place], [address] Chloride [Moles/Vol] 99 mmol/L Normal 98-108 [facility] Comment on above: Performed By: #### L 100.0100, L500.2500 ####[facility] [address] [place], [address] CO2 [Moles/Vol] 21.0 mmol/L Normal 21.0-32.0 [facility] Comment on above: Performed By: #### L 100.0100, L500.2500 ####[facility] [address] [place], [address] Creatinine [Mass/Vol] 0.95 mg/dL Normal 0.70-1.20 [facility] Comment on above: Performed By: #### L 100.0100, L500.2500 ####[facility] [address] [place], [address] ECRCL 57.98 ml/min Normal 50-250 [facility] Comment on above: Performed By: #### L 100.0100, L500.2500 ####[facility] [address] [place], [address] GAP 12 Normal 5-15 [facility] Comment on above: Performed By: #### L 100.0100, L500.2500 ####[facility] [address] [place], [address] GFR/1.73 sq M.predicted among non-blacks MDRD (S/P/Bld) [Vol rate/Area] 81 mL/min/{1.73_m2} Normal >60 [facility] Comment on above: Result Comment: mL/m in/1.73m2 CKD-EPI Creatinine Equation (2020) Performed By: #### L 100.0100, L500.2500 ####[facility] [address] [place], [address] Glucose [Mass/Vol] 99 mg/dL Normal 70-99 [facility] Comment on above: Performed By: #### L 100.0100, L500.2500 ####[facility] [address] [place], [address] Potassium [Moles/Vol] 4.0 mmol/L Normal 3.3-5.1 [facility] Comment on above: Performed By: #### L 100.0100, L500.2500 ####[facility] [address] [place], [address] Sodium [Moles/Vol] 132 mmol/L Low 133-145 [facility] Comment on above: Performed By: #### L 100.0100, L500.2500 ####[facility] [address] [place], [address] Urea nitrogen [Mass/Vol] 10 mg/dL Normal 4-19 [facility] Comment on above: Performed By: #### L 100.0100, L500.2500 ####[facility] [address] [place], [address] CBC W/Diff, Automatedon - Absolute Lymph 1.20 X10 3/uL Normal 0.83-4.51 [facility] Comment on above: Performed By: #### L 100.0100, L500.2500 ####[facility] [address] [place], [address] Absolute Neut 6.2 X10 3/uL Normal 2.0-7.7 [facility] Comment on above: Performed By: #### L 100.0100, L500.2500 ####[facility] [address] [place], [address] Basophils/100 WBC (Bld) 0.2 % Normal 0-1 [facility] Comment on above: Performed By: #### L 100.0100, L500.2500 ####[facility] [address] [place], [address] Eosinophils/100 WBC (Bld) 1.9 % Normal 0-5 [facility] Comment on above: Performed By: #### L 100.0100, L500.2500 ####[facility] [address] [place], [address] Erythrocyte distribution width (RBC) [Ratio] 12.5 % Normal 11.6-14.6 [facility] Comment on above: Performed By: #### L 100.0100, L500.2500 ####[facility] [address] [place], [address] Hematocrit (Bld) [Volume fraction] 32.0 % Low 40-54 [facility] Comment on above: Performed By: #### L 100.0100, L500.2500 ####[facility] [address] [place], [address] Hemoglobin (Bld) [Mass/Vol] 10.9 g/dL Low 13.0-16.5 [facility] Comment on above: Performed By: #### L 100.0100, L500.2500 ####[facility] [address] [place], [address] IG% 0.400 Normal 0.0-0.9 [facility] Comment on above: Result Comment: IG% - Immature Granulocytes (promyelocytes, myelocytes andmetamyelocytes) > 1% indicates that a LEFT SHIFT is Present. Performed By: #### L 100.0100, L500.2500 ####[facility] [address] [place], [address] Lymphocytes/100 WBC (Bld) 14.2 % Low 19-41 [facility] Comment on above: Performed By: #### L 100.0100, L500.2500 ####[facility] [address] [place], [address] MCH (RBC) [Entitic mass] 30.4 pg Normal 27.0-32.0 [facility] Comment on above: Performed By: #### L 100.0100, L500.2500 ####[facility] [address] [place], [address] MCHC (RBC) [Mass/Vol] 34.1 g/dL Normal 32-36 [facility] Comment on above: Performed By: #### L 100.0100, L500.2500 ####[facility] [address] [place], [address] MCV (RBC) [Entitic vol] 89.1 fL Normal 80-94 [facility] Comment on above: Performed By: #### L 100.0100, L500.2500 ####[facility] [address], [address] Monocytes/100 WBC (Bld) 10.0 % Normal 0-10 [facility] Comment on above: Performed By: #### L 100.0100, L500.2500 ####[facility] [address] [place], [address] Neutrophils/100 WBC (Bld) 73.3 % High 47-70 [facility] Comment on above: Performed By: #### L 100.0100, L500.2500 ####[facility] [address] [place], [address] Nucleated RBC (Bld) [#/Vol] 0 10*3/uL Normal 0-5 [facility] Comment on above: Performed By: #### L 100.0100, L500.2500 ####[facility] [address] [place], [address] Platelet mean volume (Bld) [Entitic vol] 9.2 fL Normal 6.2-12.0 [facility] Comment on above: Performed By: #### L 100.0100, L500.2500 ####[facility] [address], [address] Platelets (Bld) [#/Vol] 353 10*3/uL Normal 150-450 [facility] Comment on above: Performed By: #### L 100.0100, L500.2500 ####[facility] [address], [address] RBC (Bld) [#/Vol] 3.59 10*6/uL Low 4.6-6.2 [facility] Comment on above: Performed By: #### L 100.0100, L500.2500 ####[facility] [address] [place], [address] RDW SD 41.0 fl Normal 35.1-43.9 [facility] Comment on above: Performed By: #### L 100.0100, L500.2500 ####[facility] [address] [place], [address] WBC (Bld) [#/Vol] 8.4 10*3/uL Normal 4.4-11.0 [facility] Comment on above: Performed By: #### L 100.0100, L500.2500 ####[facility] [address] [place], [address] Carbon dioxide, total [Moles /volume] in Central venous bloodOrdered By: Kelvin Schrader on 11-19-2024 CO2 [Moles/Vol] 21.0 mmol/L 21.0-32.0 [facility] Chloride assayOrdered By: Marybel Schrader on 11-19-2024 Chloride [Moles/Vol] 99 mmol/L 98-108 [facility] Estimation of creatinine dunia aranceOrdered By: Kelvin Schrader on 11-19-2024 Estimated Creatinine Clearance Calc 57.98 ml/min 50-250 [facility] GFR/1.73 sq M.predicted gregg g non-blacks MDRD (S/P/Bld) [Vol rate/Area]Ordered By: Kelvin Schrader on 11-19-2024 Estimated GFR (MDRD) Non-Af Amer 81 >60 [facility] Comment on above: mL/min/1.73m2 CKD-EP I Creatinine Equation (2020) Glomerular filtration rate ( GFR) estimation/1.73 sq m using serum, plasma, or whole bOrdered By: Kelvin Schrader on 11-19-2024 GFR/1.73 sq M.predicted among non-blacks MDRD (S/P/Bld) [Vol rate/Area] 81 mL/min/{1.73_m2} >60 [facility] Comment on above: mL/min/1.73m2 CKD-EP I Creatinine Equation (2020) MR/CON.PCM.GIon 11-19-2024 MR/CON.PCM.GI Normal [facility] MR/POSTOP.ANEon 11-19-2024 MR/POSTOP.ANE Normal [facility] Potassium (Unsp spec) [Mass/ Vol]Ordered By: Kelvin Schrader on 11-19-2024 Potassium [Moles/Vol] 4.0 mmol/L 3.3-5.1 [facility] Potassium measurement (mass/ volume)Ordered By: Kelvin Schrader on 11-19-2024 Potassium (Unsp spec) [Mass/Vol] 4.0 mmol/L 3.3-5.1 [facility] Serum creatinine measurement (mass/volume)Ordered By: Kelvin Schrader on 11-19-2024 Creatinine [Mass/Vol] 0.95 mg/dL 0.70-1.20 [facility] Serum glucose measurement (m ass/volume)Ordered By: Kelvin Schrader on 11-19-2024 Glucose [Mass/Vol] 99 mg/dL 70-99 [facility] Serum or plasma calcium shagufta urement (mass/volume)Ordered By: Kelvin Schrader on 11-19-2024 Calcium [Mass/Vol] 8.8 mg/dL 7.6-11.0 [facility] Serum or plasma urea nitroge n measurement (mass/volume)Ordered By: Kelvin Schrader on 11-19-2024 Urea nitrogen [Mass/Vol] 10 mg/dL 4-19 [facility] Sodium levelOrdered By: Vernon Schrader on 11-19-2024 Sodium [Moles/Vol] 132 mmol/L Low 133-145 [facility] Abdomen/Pelvis W IV Cont ONL Yon 11-18-2024 Abdomen/Pelvis W IV Cont ONLY Normal [facility] Absolute neutrophil countOrd ered By: Radha Damon on 11-18-2024 Neutrophils (Bld) [#/Vol] 5.7 10*3/uL 2.0-7.7 [facility] Anion gap in Serum or Plasma Ordered By: Radha Damon on 11-18-2024 Anion gap [Moles/Vol] 11 mmol/L 12-13 [facility] BUN/creatinine ratioOrdered By: Radha Damon on 11-18-2024 Urea nitrogen/Creatinine [Mass ratio] 13.7 mg/mg 05-20 [facility] Basic Metabolic Profile (BMP )on 11-18-2024 BUN/CRE 13.7 RATIO Normal 05-20 [facility] Comment on above: Performed By: #### L 500.2500, L100.0100 ####[facility] [address] [place], [address] Calcium [Mass/Vol] 8.9 mg/dL Normal 7.6-11.0 [facility] Comment on above: Performed By: #### L 500.2500, L100.0100 ####[facility] [address] [place], [address] Chloride [Moles/Vol] 95 mmol/L Low 98-108 [facility] Comment on above: Performed By: #### L 500.2500, L100.0100 ####[facility] [address] [place], [address] CO2 [Moles/Vol] 24.0 mmol/L Normal 21.0-32.0 [facility] Comment on above: Performed By: #### L 500.2500, L100.0100 ####[facility] [address] [place], [address] Creatinine [Mass/Vol] 1.02 mg/dL Normal 0.70-1.20 [facility] Comment on above: Performed By: #### L 500.2500, L100.0100 ####[facility] [address] [place], [address] ECRCL 54.00 ml/min Normal 50-250 [facility] Comment on above: Performed By: #### L 500.2500, L100.0100 ####[facility] [address] [place], [address] GAP 11 Normal 5-15 [facility] Comment on above: Performed By: #### L 500.2500, L100.0100 ####[facility] [address] [place], [address] GFR/1.73 sq M.predicted among non-blacks MDRD (S/P/Bld) [Vol rate/Area] 74 mL/min/{1.73_m2} Normal >60 [facility] Comment on above: Result Comment: mL/m in/1.73m2 CKD-EPI Creatinine Equation (2020) Performed By: #### L 500.2500, L100.0100 ####[facility] [address] [place], [address] Glucose [Mass/Vol] 104 mg/dL High 70-99 [facility] Comment on above: Performed By: #### L 500.2500, L100.0100 ####[facility] [address] [place], [address] Potassium [Moles/Vol] 4.1 mmol/L Normal 3.3-5.1 [facility] Comment on above: Performed By: #### L 500.2500, L100.0100 ####[facility] [address] [place], [address] Sodium [Moles/Vol] 130 mmol/L Low 133-145 [facility] Comment on above: Performed By: #### L 500.2500, L100.0100 ####[facility] [address] [place], [address] Urea nitrogen [Mass/Vol] 14 mg/dL Normal 4-19 [facility] Comment on above: Performed By: #### L 500.2500, L100.0100 ####[facility] [address] [place], [address] Basophil percentageOrdered B y: Radha Damon on 11-18-2024 Basophils/100 WBC (Bld) 0.3 % 0-1 [facility] CBC W/Diff, Automatedon 10-31-2024 Absolute Lymph 1.14 X10 3/uL Normal 0.83-4.51 [facility] Comment on above: Performed By: #### L 500.2500, L100.0100 ####[facility] [address] [place], [address] Absolute Neut 5.7 X10 3/uL Normal 2.0-7.7 [facility] Comment on above: Performed By: #### L 500.2500, L100.0100 ####[facility] [address] [place], [address] Basophils/100 WBC (Bld) 0.3 % Normal 0-1 [facility] Comment on above: Performed By: #### L 500.2500, L100.0100 ####[facility] [address] [place], [address] Eosinophils/100 WBC (Bld) 1.8 % Normal 0-5 [facility] Comment on above: Performed By: #### L 500.2500, L100.0100 ####[facility] [address] [place], [address] Erythrocyte distribution width (RBC) [Ratio] 12.4 % Normal 11.6-14.6 [facility] Comment on above: Performed By: #### L 500.2500, L100.0100 ####[facility] [address] [place], [address] Hematocrit (Bld) [Volume fraction] 29.1 % Low 40-54 [facility] Comment on above: Performed By: #### L 500.2500, L100.0100 ####[facility] [address] [place], [address] Hemoglobin (Bld) [Mass/Vol] 10.3 g/dL Low 13.0-16.5 [facility] Comment on above: Performed By: #### L 500.2500, L100.0100 ####[facility] [address] [place], [address] IG% 0.400 Normal 0.0-0.9 [facility] Comment on above: Result Comment: IG% - Immature Granulocytes (promyelocytes, myelocytes andmetamyelocytes) > 1% indicates that a LEFT SHIFT is Present. Performed By: #### L 500.2500, L100.0100 ####[facility] [address] [place], [address] Lymphocytes/100 WBC (Bld) 14.4 % Low 19-41 [facility] Comment on above: Performed By: #### L 500.2500, L100.0100 ####[facility] [address] [place], [address] MCH (RBC) [Entitic mass] 30.8 pg Normal 27.0-32.0 [facility] Comment on above: Performed By: #### L 500.2500, L100.0100 ####[facility] [address] [place], [address] MCHC (RBC) [Mass/Vol] 35.4 g/dL Normal 32-36 [facility] Comment on above: Performed By: #### L 500.2500, L100.0100 ####[facility] [address] [place], [address] MCV (RBC) [Entitic vol] 87.1 fL Normal 80-94 [facility] Comment on above: Performed By: #### L 500.2500, L100.0100 ####[facility] [address] [place], [address] Monocytes/100 WBC (Bld) 11.2 % High 0-10 [facility] Comment on above: Performed By: #### L 500.2500, L100.0100 ####[facility] [address] [place], [address] Neutrophils/100 WBC (Bld) 71.9 % High 47-70 [facility] Comment on above: Performed By: #### L 500.2500, L100.0100 ####[facility] [address] [place], [address] Nucleated RBC (Bld) [#/Vol] 0 10*3/uL Normal 0-5 [facility] Comment on above: Performed By: #### L 500.2500, L100.0100 ####[facility] [address] [place], [address] Platelet mean volume (Bld) [Entitic vol] 8.6 fL Normal 6.2-12.0 [facility] Comment on above: Performed By: #### L 500.2500, L100.0100 ####[facility] [address] [place], [address] Platelets (Bld) [#/Vol] 333 10*3/uL Normal 150-450 [facility] Comment on above: Performed By: #### L 500.2500, L100.0100 ####[facility] [address] [place], [address] RBC (Bld) [#/Vol] 3.34 10*6/uL Low 4.6-6.2 [facility] Comment on above: Performed By: #### L 500.2500, L100.0100 ####[facility] [address] [place], [address] RDW SD 39.8 fl Normal 35.1-43.9 [facility] Comment on above: Performed By: #### L 500.2500, L100.0100 ####[facility] [address] [place], [address] WBC (Bld) [#/Vol] 7.9 10*3/uL Normal 4.4-11.0 [facility] Comment on above: Performed By: #### L 500.2500, L100.0100 ####[facility] [address] [place], [address] Carbon dioxide, total [Moles /volume] in Central venous bloodOrdered By: Radha Damon on 11-18-2024 CO2 [Moles/Vol] 24.0 mmol/L 21.0-32.0 [facility] Chloride assayOrdered By: Marybel Damon on 11-18-2024 Chloride [Moles/Vol] 95 mmol/L Low 98-108 [facility] Emergency Department Summary on 11-18-2024 Emergency Department Summary Normal [facility] Eosinophil percentageOrdered By: Radha Damon on 11-18-2024 Eosinophils/100 WBC (Bld) 1.8 % 0-5 [facility] Erythrocyte distribution wid th (RBC) [Ratio]Ordered By: Radha Damon on 11-18-2024 Erythrocyte distribution width (RBC) [Entitic vol] 39.8 fL 35.1-43.9 [facility] Erythrocyte distribution wid th ratioOrdered By: Radha Damon on 11-18-2024 Erythrocyte distribution width (RBC) [Ratio] 12.4 % 11.6-14.6 [facility] Estimation of creatinine dunia aranceOrdered By: Radha Damon on 11-18-2024 Estimated Creatinine Clearance Calc 54.00 ml/min 50-250 [facility] GFR/1.73 sq M.predicted gregg g non-blacks MDRD (S/P/Bld) [Vol rate/Area]Ordered By: Radha Damon on 11-18-2024 Estimated GFR (MDRD) Non-Af Amer 74 >60 [facility] Comment on above: mL/min/1.73m2 CKD-EP I Creatinine Equation (2020) H AND P Exam - Hospitaliston 11-18-2024 H&P Exam - Hospitalist Normal [facility] Hematocrit Auto (Bld) [Volum e fraction]Ordered By: Radha Damon on 11-18-2024 Hematocrit (Bld) [Volume fraction] 29.1 % Low 40-54 [facility] Hemoglobin measurementOrdere d By: Radha Damon on 11-18-2024 Hemoglobin (Bld) [Mass/Vol] 10.3 g/dL Low 13.0-16.5 [facility] Immature granulocytes/100 WB C Auto (Bld)Ordered By: Radha Damon on 11-18-2024 Immature granulocytes/100 WBC (Bld) 0.400 % 0.0-0.9 [facility] Comment on above: IG% - Immature Granu locytes (promyelocytes, myelocytes and metamyelocytes) > 1% indicates that a LEFT SHIFT is Present. Lymphocytes Auto (Unsp spec) [#/Vol]Ordered By: Radha Damon on 11-18-2024 Lymphocytes (Bld) [#/Vol] 1.14 10*3/uL 0.83-4.51 [facility] Lymphocytes/100 WBC Auto (Un sp spec)Ordered By: Radha Damon on 11-18-2024 Lymphocytes/100 WBC (Bld) 14.4 % Low 19-41 [facility] MCV (mean corpuscular volume ) determinationOrdered By: Radha Damon on 11-18-2024 MCV (RBC) [Entitic vol] 87.1 fL 80-94 [facility] Mean corpuscular hemoglobin (MCH) determinationOrdered By: Radha Damon on 11-18-2024 MCH (RBC) [Entitic mass] 30.8 pg 27.0-32.0 [facility] Mean corpuscular hemoglobin concentration (MCHC) determinationOrdered By: Radha Damon on 11-18-2024 MCHC (RBC) [Mass/Vol] 35.4 g/dL 32-36 [facility] Mean platelet volume determi nationOrdered By: Radha Damon on 11-18-2024 Platelet mean volume (Bld) [Entitic vol] 8.6 fL 6.2-12.0 [facility] Monocyte percentageOrdered B y: Radha Damon on 11-18-2024 Monocytes/100 WBC (Bld) 11.2 % High 0-10 [facility] Neutrophil percentageOrdered By: Radha Damon on 11-18-2024 Neutrophils/100 WBC (Bld) 71.9 % High 47-70 [facility] Nucleated red blood cell per centageOrdered By: Radha Damon on 11-18-2024 Nucleated RBC/100 WBC (Bld) [Ratio] 0 % 0-5 [facility] Platelet countOrdered By: Marybel Damon on 11-18-2024 Platelets (Bld) [#/Vol] 333 10*3/uL 150-450 [facility] Potassium (Unsp spec) [Mass/ Vol]Ordered By: Radha Damon on 11-18-2024 Potassium [Moles/Vol] 4.1 mmol/L 3.3-5.1 [facility] RBC Auto (Bld) [#/Vol]Ordere d By: Radha Damon on 11-18-2024 RBC (Bld) [#/Vol] 3.34 10*6/uL Low 4.6-6.2 [facility] Serum creatinine measurement (mass/volume)Ordered By: Radha Damon on 11-18-2024 Creatinine [Mass/Vol] 1.02 mg/dL 0.70-1.20 [facility] Serum glucose measurement (m ass/volume)Ordered By: Radha Damon on 11-18-2024 Glucose [Mass/Vol] 104 mg/dL High 70-99 [facility] Serum or plasma calcium shagufta urement (mass/volume)Ordered By: Radha Damon on 11-18-2024 Calcium [Mass/Vol] 8.9 mg/dL 7.6-11.0 [facility] Serum or plasma urea nitroge n measurement (mass/volume)Ordered By: Radha Damon on 11-18-2024 Urea nitrogen [Mass/Vol] 14 mg/dL 4-19 [facility] Sodium levelOrdered By: Seth Damon on 11-18-2024 Sodium [Moles/Vol] 130 mmol/L Low 133-145 [facility] Type AND Screenon 11-18-2024 Ab SCREEN GEL Negative Normal [facility] Comment on above: Order Comment: HGI Performed By: #### B TS ####[facility] [address] [place], [place], [address] White blood cell (WBC) count Ordered By: Radha Damon on 11-18-2024 WBC (Bld) [#/Vol] 7.9 10*3/uL 4.4-11.0 [facility] Ova and Parasites 8623on OP Normal [facility] Comment on above: Performed By: #### M 100.0605, M100.6796, M100.637, M600.5000 ####[facility] [address] [place], [place], [id number] 12 Lead EKGon 11-07-2024 12 Lead EKG Normal [facility] Absolute lymphocyte countOrd ered By: Stevie Harrington on 11-07-2024 Lymphocytes Auto (Unsp spec) [#/Vol] 0.91 10*3/uL 0.83-4.51 [facility] Absolute neutrophil countOrd ered By: Stevie Harrington on 11-07-2024 Neutrophils (Bld) [#/Vol] 4.3 10*3/uL 2.0-7.7 [facility] Anion gap in Serum or Plasma Ordered By: Stevie Harrington on 11-07-2024 Anion gap [Moles/Vol] 14 mmol/L 5-15 [facility] Automated lymphocyte count a s percentage of total leukocytesOrdered By: Stevie Harrington on 11-07-2024 Lymphocytes/100 WBC Auto (Unsp spec) 14.8 % Low 19-41 [facility] BUN/creatinine ratioOrdered By: Stevie Harrington on 11-07-2024 Urea nitrogen/Creatinine [Mass ratio] 16.0 mg/mg - [facility] Basic Metabolic Profile (BMP )on 11-07-2024 BUN/CRE 16.0 RATIO Normal 05-20 [facility] Comment on above: Performed By: #### L 500.2500, L100.0100 ####[facility] [address] [place], [address] Calcium [Mass/Vol] 8.6 mg/dL Normal 7.6-11.0 [facility] Comment on above: Performed By: #### L 500.2500, L100.0100 ####[facility] [address] [place], [address] Chloride [Moles/Vol] 96 mmol/L Low 98-108 [facility] Comment on above: Performed By: #### L 500.2500, L100.0100 ####[facility] [address] [place], [address] CO2 [Moles/Vol] 18.1 mmol/L Low 21.0-32.0 [facility] Comment on above: Performed By: #### L 500.2500, L100.0100 ####[facility] [address] [place], [address] Creatinine [Mass/Vol] 1.02 mg/dL Normal 0.70-1.20 [facility] Comment on above: Performed By: #### L 500.2500, L100.0100 ####[facility] [address] [place], [address] ECRCL 54.00 ml/min Normal 50-250 [facility] Comment on above: Performed By: #### L 500.2500, L100.0100 ####[facility] [address] [place], [address] GAP 14 Normal 5-15 [facility] Comment on above: Performed By: #### L 500.2500, L100.0100 ####[facility] [address] [place], [address] GFR/1.73 sq M.predicted among non-blacks MDRD (S/P/Bld) [Vol rate/Area] 74 mL/min/{1.73_m2} Normal >60 [facility] Comment on above: Result Comment: mL/m in/1.73m2 CKD-EPI Creatinine Equation (2020) Performed By: #### L 500.2500, L100.0100 ####[facility] [address] [place], [address] Glucose [Mass/Vol] 92 mg/dL Normal 70-99 [facility] Comment on above: Performed By: #### L 500.2500, L100.0100 ####[facility] [address] [place], [address] Potassium [Moles/Vol] 3.8 mmol/L Normal 3.3-5.1 [facility] Comment on above: Performed By: #### L 500.2500, L100.0100 ####[facility] [address] [place], [address] Sodium [Moles/Vol] 128 mmol/L Low 133-145 [facility] Comment on above: Performed By: #### L 500.2500, L100.0100 ####[facility] [address] [place], [address] Urea nitrogen [Mass/Vol] 16 mg/dL Normal 4-19 [facility] Comment on above: Performed By: #### L 500.2500, L100.0100 ####[facility] [address] [place], [address] Basophil percentageOrdered B y: Stevie Harrington on 11-07-2024 Basophils/100 WBC (Bld) 0.5 % 0-1 [facility] CBC W/Diff, Automatedon 04-0 Absolute Lymph 0.91 X10 3/uL Normal 0.83-4.51 [facility] Comment on above: Performed By: #### L 500.2500, L100.0100 ####[facility] [address], [address] Absolute Neut 4.3 X10 3/uL Normal 2.0-7.7 [facility] Comment on above: Performed By: #### L 500.2500, L100.0100 ####[facility] [address] [place], [address] Basophils/100 WBC (Bld) 0.5 % Normal 0-1 [facility] [facility] Comment on above: Performed By: #### L 500.2500, L100.0100 ####[facility] [address] [place], [address] Eosinophils/100 WBC (Bld) 1.3 % Normal 0-5 [facility] Comment on above: Performed By: #### L 500.2500, L100.0100 ####[facility] [address] [place], [address] Erythrocyte distribution width (RBC) [Ratio] 12.3 % Normal 11.6-14.6 [facility] Comment on above: Performed By: #### L 500.2500, L100.0100 ####[facility] [address] [place], [address] Hematocrit (Bld) [Volume fraction] 34.0 % Low 40-54 [facility] Comment on above: Performed By: #### L 500.2500, L100.0100 ####[facility] [address] [place], [address] Hemoglobin (Bld) [Mass/Vol] 11.9 g/dL Low 13.0-16.5 [facility] Comment on above: Performed By: #### L 500.2500, L100.0100 ####[facility] [address] [place], [address] IG% 0.500 Normal 0.0-0.9 [facility] Comment on above: Result Comment: IG% - Immature Granulocytes (promyelocytes, myelocytes andmetamyelocytes) > 1% indicates that a LEFT SHIFT is Present. Performed By: #### L 500.2500, L100.0100 ####[facility] [address] [place], [address] Lymphocytes/100 WBC (Bld) 14.8 % Low 19-41 [facility] Comment on above: Performed By: #### L 500.2500, L100.0100 ####[facility] [address] [place], [address] MCH (RBC) [Entitic mass] 30.6 pg Normal 27.0-32.0 [facility] Comment on above: Performed By: #### L 500.2500, L100.0100 ####[facility] [address] [place], [address] MCHC (RBC) [Mass/Vol] 35.0 g/dL Normal 32-36 [facility] Comment on above: Performed By: #### L 500.2500, L100.0100 ####[facility] [address] [place], [address] MCV (RBC) [Entitic vol] 87.4 fL Normal 80-94 [facility] Comment on above: Performed By: #### L 500.2500, L100.0100 ####[facility] [address] [place], [address] Monocytes/100 WBC (Bld) 12.5 % High 0-10 [facility] Comment on above: Performed By: #### L 500.2500, L100.0100 ####[facility] [address] [place], [address] Neutrophils/100 WBC (Bld) 70.4 % High 47-70 [facility] Comment on above: Performed By: #### L 500.2500, L100.0100 ####[facility] [address], [address] Nucleated RBC (Bld) [#/Vol] 0 10*3/uL Normal 0-5 [facility] Comment on above: Performed By: #### L 500.2500, L100.0100 ####[facility] [address] [place], [address] Platelet mean volume (Bld) [Entitic vol] 9.3 fL Normal 6.2-12.0 [facility] Comment on above: Performed By: #### L 500.2500, L100.0100 ####[facility] [address] [place], [address] Platelets (Bld) [#/Vol] 285 10*3/uL Normal 150-450 [facility] Comment on above: Performed By: #### L 500.2500, L100.0100 ####[facility] [address] [place], [address] RBC (Bld) [#/Vol] 3.89 10*6/uL Low 4.6-6.2 [facility] Comment on above: Performed By: #### L 500.2500, L100.0100 ####[facility] [address] [place], [address] RDW SD 39.5 fl Normal 35.1-43.9 [facility] Comment on above: Performed By: #### L 500.2500, L100.0100 ####[facility] [address] [place], [address] WBC (Bld) [#/Vol] 6.2 10*3/uL Normal 4.4-11.0 [facility] Comment on above: Performed By: #### L 500.2500, L100.0100 ####[facility] [address] [place], [address] Carbon dioxide, total [Moles /volume] in Central venous bloodOrdered By: Stevie Harrington on 11-07-2024 CO2 [Moles/Vol] 18.1 mmol/L Low 21.0-32.0 [facility] Chloride assayOrdered By: Brant Harrington on 11-07-2024 Chloride [Moles/Vol] 96 mmol/L Low 98-108 [facility] Electrocardiogram reportOrde red By: Adrian Flores on 11-07-2024 EKG study [facility] Cardi[facility] Services [address] [place] [address] 12 Lead EKG 11/07/24 0553 MR#: [id number] Acct: [id number] Name: JARED RAYMOND Rep #:[id number] : 1945 79 From: Adrian Flores MD Attending Dr: Dr. Stevie Harrington DO Status: ADM IN Ordering Dr: Steven Ann MD Date: 04/25 Location: [facility] Sex: M C Admitted: 11/06/24 [...] was found Confirmed by ADRIAN FLORES MD ([id number]), magazine editor ELIZ LOPEZ ([id number]) on 11/07/2024 1:45:42 PM Referred By: Confirmed By: ADRIAN FLORES MD 11/07/24 1345 Date _ Adrian Flores MD CC: COMPLEX DIRECTORCatherine Olson; Dr. Steven Ann MD; Dr. Stevie Harrington, ~ Signed [facility] Work Phone: Eosinophil percentageOrdered By: tSevie Harrington on 11-07-2024 Eosinophils/100 WBC (Bld) 1.3 % 0-5 [facility] Erythrocyte distribution wid th (RBC) [Ratio]Ordered By: Stevie Harrington on 11-07-2024 Erythrocyte distribution width (RBC) [Entitic vol] 39.5 fL 35.1-43.9 [facility] Erythrocyte distribution wid th ratioOrdered By: Stevie Harrington on 11-07-2024 Erythrocyte distribution width (RBC) [Ratio] 12.3 % 11.6-14.6 [facility] Erythrocyte distribution wid th standard deviationOrdered By: Stevie Harrington on 11-07-2024 Erythrocyte distribution width (RBC) [Ratio] 39.5 fl 35.1-43.9 [facility] Estimation of creatinine dunia aranceOrdered By: Stevie Harrington on 11-07-2024 Estimated Creatinine Clearance Calc 54.00 ml/min 50-250 [facility] GFR/1.73 sq M.predicted gregg g non-blacks MDRD (S/P/Bld) [Vol rate/Area]Ordered By: Stevie Harrington on 11-07-2024 Estimated GFR (MDRD) Non-Af Amer 74 >60 [facility] Comment on above: mL/min/1.73m2 CKD-EP I Creatinine Equation (2020) Glomerular filtration rate ( GFR) estimation/1.73 sq m using serum, plasma, or whole bOrdered By: Stevie Harrington on 11-07-2024 GFR/1.73 sq M.predicted among non-blacks MDRD (S/P/Bld) [Vol rate/Area] 74 mL/min/{1.73_m2} >60 [facility] Comment on above: mL/min/1.73m2 CKD-EP I Creatinine Equation (2020) Hematocrit Auto (Bld) [Volum e fraction]Ordered By: Stevie Harrington on 11-07-2024 Hematocrit (Bld) [Volume fraction] 34.0 % Low 40-54 [facility] Hemoglobin measurementOrdere d By: Stevie Harrington on 11-07-2024 Hemoglobin (Bld) [Mass/Vol] 11.9 g/dL Low 13.0-16.5 [facility] Immature granulocytes/100 WB C Auto (Bld)Ordered By: Stevie Harrington on 11-07-2024 Immature granulocytes/100 WBC (Bld) 0.500 % 0.0-0.9 [facility] Comment on above: IG% - Immature Granu locytes (promyelocytes, myelocytes and metamyelocytes) > 1% indicates that a LEFT SHIFT is Present. Lymphocytes Auto (Unsp spec) [#/Vol]Ordered By: Stevie Harrington on 11-07-2024 Lymphocytes (Bld) [#/Vol] 0.91 10*3/uL 0.83-4.51 [facility] Lymphocytes/100 WBC Auto (Un sp spec)Ordered By: Stevie Harrington on 11-07-2024 Lymphocytes/100 WBC (Bld) 14.8 % Low 19-41 [facility] MCV (mean corpuscular volume ) determinationOrdered By: Stevie Harrington on 11-07-2024 MCV (RBC) [Entitic vol] 87.4 fL 80-94 [facility] Mean corpuscular hemoglobin (MCH) determinationOrdered By: Stevie Harrington on 11-07-2024 MCH (RBC) [Entitic mass] 30.6 pg 27.0-32.0 [facility] Mean corpuscular hemoglobin concentration (MCHC) determinationOrdered By: tSevie Harrington on 11-07-2024 MCHC (RBC) [Mass/Vol] 35.0 g/dL 32-36 [facility] Mean platelet volume determi nationOrdered By: Stevie Harrington on 11-07-2024 Platelet mean volume (Bld) [Entitic vol] 9.3 fL 6.2-12.0 [facility] Monocyte percentageOrdered B y: Stevie Harrington on 11-07-2024 Monocytes/100 WBC (Bld) 12.5 % High 0-10 [facility] Neutrophil percentageOrdered By: Stevie Harrington on 11-07-2024 Neutrophils/100 WBC (Bld) 70.4 % High 47-70 [facility] Nucleated red blood cell per centageOrdered By: Stevie Harrington on 11-07-2024 Nucleated RBC/100 WBC (Bld) [Ratio] 0 % 0-5 [facility] Platelet countOrdered By: Brant Harrington on 11-07-2024 Platelets (Bld) [#/Vol] 285 10*3/uL 150-450 [facility] Potassium (Unsp spec) [Mass/ Vol]Ordered By: Stevie Harrington on 11-07-2024 Potassium [Moles/Vol] 3.8 mmol/L 3.3-5.1 [facility] Potassium measurement (mass/ volume)Ordered By: Stevie Harrington on 11-07-2024 Potassium (Unsp spec) [Mass/Vol] 3.8 mmol/L 3.3-5.1 [facility] RBC Auto (Bld) [#/Vol]Ordere d By: Stevie Harrington on 11-07-2024 RBC (Bld) [#/Vol] 3.89 10*6/uL Low 4.6-6.2 [facility] Serum creatinine measurement (mass/volume)Ordered By: Stevie Harrington on 11-07-2024 Creatinine [Mass/Vol] 1.02 mg/dL 0.70-1.20 [facility] Serum glucose measurement (m ass/volume)Ordered By: Stevie Harrington on 11-07-2024 Glucose [Mass/Vol] 92 mg/dL 70-99 [facility] Serum or plasma calcium shagufta urement (mass/volume)Ordered By: Stevie Harrington on 11-07-2024 Calcium [Mass/Vol] 8.6 mg/dL 7.6-11.0 [facility] Serum or plasma urea nitroge n measurement (mass/volume)Ordered By: Stevie Harrington on 11-07-2024 Urea nitrogen [Mass/Vol] 16 mg/dL 4-19 [facility] Sodium levelOrdered By: Stevie Harrington on 11-07-2024 Sodium [Moles/Vol] 128 mmol/L Low 133-145 [facility] White blood cell (WBC) count Ordered By: Stevie Harrington on 11-07-2024 WBC (Bld) [#/Vol] 6.2 10*3/uL 4.4-11.0 [facility] Bilirubin, totalOrdered By: Darrel Sanders on 11-06-2024 Bilirubin [Mass/Vol] 0.64 mg/dL 0.00-1.30 [facility] C. difficile DNA BLESSING+probe Q l (Unsp spec)Ordered By: Darrel Sanders on 11-06-2024 Clostridioides difficile (PCR) [facility] CBC W/Diff, Automatedon 04-0 8-2024 Absolute Lymph 0.59 X10 3/uL Low 0.83-4.51 [facility] Comment on above: Performed By: #### L 100.0100 ####[facility] [address] [place], [address] Absolute Neut 5.0 X10 3/uL Normal 2.0-7.7 [facility] Comment on above: Performed By: #### L 100.0100 ####[facility] [address] [place], [address] Basophils/100 WBC (Bld) 0.3 % Normal 0-1 [facility] Comment on above: Performed By: #### L 100.0100 ####[facility] [address] [place], [address] Eosinophils/100 WBC (Bld) 0.3 % Normal 0-5 [facility] Comment on above: Performed By: #### L 100.0100 ####[facility] [address] [place], [address] Erythrocyte distribution width (RBC) [Ratio] 12.3 % Normal 11.6-14.6 [facility] Comment on above: Performed By: #### L 100.0100 ####[facility] [address] [place], [address] Hematocrit (Bld) [Volume fraction] 33.9 % Low 40-54 [facility] Comment on above: Performed By: #### L 100.0100 ####[facility] [address] [place], [address] Hemoglobin (Bld) [Mass/Vol] 11.9 g/dL Low 13.0-16.5 [facility] Comment on above: Performed By: #### L 100.0100 ####[facility] [address] [place], [address] IG% 0.300 Normal 0.0-0.9 [facility] Comment on above: Result Comment: IG% - Immature Granulocytes (promyelocytes, myelocytes andmetamyelocytes) > 1% indicates that a LEFT SHIFT is Present. Performed By: #### L 100.0100 ####[facility] [address] [place], [address] Lymphocytes/100 WBC (Bld) 9.1 % Low 19-41 [facility] Comment on above: Performed By: #### L 100.0100 ####[facility] [address] [place], [address] MCH (RBC) [Entitic mass] 31.1 pg Normal 27.0-32.0 [facility] Comment on above: Performed By: #### L 100.0100 ####[facility] [address] [place], [address] MCHC (RBC) [Mass/Vol] 35.1 g/dL Normal 32-36 [facility] Comment on above: Performed By: #### L 100.0100 ####[facility] [address] [place], [address] MCV (RBC) [Entitic vol] 88.5 fL Normal 80-94 [facility] Comment on above: Performed By: #### L 100.0100 ####[facility] [address] [place], [address] Monocytes/100 WBC (Bld) 11.9 % High 0-10 [facility] Comment on above: Performed By: #### L 100.0100 ####[facility] [address] [place], [address] Neutrophils/100 WBC (Bld) 78.1 % High 47-70 [facility] Comment on above: Performed By: #### L 100.0100 ####[facility] [address] [place], [address] Nucleated RBC (Bld) [#/Vol] 0 10*3/uL Normal 0-5 [facility] Comment on above: Performed By: #### L 100.0100 ####[facility] [address] [place], [address] Platelet mean volume (Bld) [Entitic vol] 9.1 fL Normal 6.2-12.0 [facility] Comment on above: Performed By: #### L 100.0100 ####[facility] [address] [place], [address] Platelets (Bld) [#/Vol] 290 10*3/uL Normal 150-450 [facility] Comment on above: Performed By: #### L 100.0100 ####[facility] [address] [place], [address] RBC (Bld) [#/Vol] 3.83 10*6/uL Low 4.6-6.2 [facility] Comment on above: Performed By: #### L 100.0100 ####[facility] [address] [place], [address] RDW SD 39.8 fl Normal 35.1-43.9 [facility] Comment on above: Performed By: #### L 100.0100 ####[facility] [address] [place], [address] WBC (Bld) [#/Vol] 6.5 10*3/uL Normal 4.4-11.0 [facility] Comment on above: Performed By: #### L 100.0100 ####[facility] [address] [place], [address] Absolute Lymph 1.08 X10 3/uL Normal 0.83-4.51 [facility] Comment on above: Performed By: #### L 501.2300, L100.0100, L500.4050 ####[facility] [address] [place], [address] Absolute Neut 5.9 X10 3/uL Normal 2.0-7.7 [facility] Comment on above: Performed By: #### L 501.2300, L100.0100, L500.4050 ####[facility] [address] [place], [address] Basophils/100 WBC (Bld) 0.3 % Normal 0-1 [facility] Comment on above: Performed By: #### L 501.2300, L100.0100, L500.4050 ####[facility] [address] [place], [address] Eosinophils/100 WBC (Bld) 1.4 % Normal 0-5 [facility] Comment on above: Performed By: #### L 501.2300, L100.0100, L500.4050 ####[facility] [address] [place], [address] Erythrocyte distribution width (RBC) [Ratio] 12.2 % Normal 11.6-14.6 [facility] Comment on above: Performed By: #### L 501.2300, L100.0100, L500.4050 ####[facility] [address] [place], [address] Hematocrit (Bld) [Volume fraction] 35.2 % Low 40-54 [facility] Comment on above: Performed By: #### L 501.2300, L100.0100, L500.4050 ####[facility] [address] [place], [address] Hemoglobin (Bld) [Mass/Vol] 12.3 g/dL Low 13.0-16.5 [facility] Comment on above: Performed By: #### L 501.2300, L100.0100, L500.4050 ####[facility] [address] [place], [address] IG% 0.300 Normal 0.0-0.9 [facility] Comment on above: Result Comment: IG% - Immature Granulocytes (promyelocytes, myelocytes andmetamyelocytes) > 1% indicates that a LEFT SHIFT is Present. Performed By: #### L 501.2300, L100.0100, L500.4050 ####[facility] [address] [place], [address] Lymphocytes/100 WBC (Bld) 13.7 % Low 19-41 [facility] Comment on above: Performed By: #### L 501.2300, L100.0100, L500.4050 ####[facility] [address] [place], [address] MCH (RBC) [Entitic mass] 30.4 pg Normal 27.0-32.0 [facility] Comment on above: Performed By: #### L 501.2300, L100.0100, L500.4050 ####[facility] [address] [place], [address] MCHC (RBC) [Mass/Vol] 34.9 g/dL Normal 32-36 [facility] Comment on above: Performed By: #### L 501.2300, L100.0100, L500.4050 ####[facility] [address] [place], [address] MCV (RBC) [Entitic vol] 87.1 fL Normal 80-94 [facility] Comment on above: Performed By: #### L 501.2300, L100.0100, L500.4050 ####[facility] [address] [place], [address] Monocytes/100 WBC (Bld) 9.8 % Normal 0-10 [facility] Comment on above: Performed By: #### L 501.2300, L100.0100, L500.4050 ####[facility] [address], [address] Neutrophils/100 WBC (Bld) 74.5 % High 47-70 [facility] Comment on above: Performed By: #### L 501.2300, L100.0100, L500.4050 ####[facility] [address] [place], [address] Nucleated RBC (Bld) [#/Vol] 0 10*3/uL Normal 0-5 [facility] Comment on above: Performed By: #### L 501.2300, L100.0100, L500.4050 ####[facility] [address] [place], [address] Platelet mean volume (Bld) [Entitic vol] 8.7 fL Normal 6.2-12.0 [facility] Comment on above: Performed By: #### L 501.2300, L100.0100, L500.4050 ####[facility] [address] [place], [address] Platelets (Bld) [#/Vol] 303 10*3/uL Normal 150-450 [facility] Comment on above: Performed By: #### L 501.2300, L100.0100, L500.4050 ####[facility] [address] [place], [address] RBC (Bld) [#/Vol] 4.04 10*6/uL Low 4.6-6.2 [facility] Comment on above: Performed By: #### L 501.2300, L100.0100, L500.4050 ####[facility] [address] [place], [address] RDW SD 39.1 fl Normal 35.1-43.9 [facility] Comment on above: Performed By: #### L 501.2300, L100.0100, L500.4050 ####[facility] [address] [place], [address] WBC (Bld) [#/Vol] 7.9 10*3/uL Normal 4.4-11.0 [facility] Comment on above: Performed By: #### L 501.2300, L100.0100, L500.4050 ####[facility] [address] [place], [address] CDIFF (PCR)on 11-06-2024 CDIFF Is the patient recei ving laxatives? N New/unexplained onset of 3 or more stools in past 24 hrs? Y 027 027 NAP1-B1 Presumptive Negative *for epidemiolologic???use C. Diff PCR Negative- No toxigenic C. Diff Detected Normal [facility] Comment on above: Performed By: #### M 100.0605, M100.6796, M100.637, M600.5000 ####[facility] [address] [place], [address] Calculated total iron bindin g capacityOrdered By: Darrel Sanders on 11-06-2024 Total Iron Binding Capacity 270 ug/dL 250-450 [facility] Clostridium difficile detect ion by polymerase chain reactionOrdered By: Darrel Sanders on 11-06-2024 C. difficile DNA BLESSING+probe Ql (Unsp spec) [facility] Colonoscopy Reporton 025 Colonoscopy Report Normal [facility] Comprehensive Metabolic Prof ilon 11-06-2024 Albumin [Mass/Vol] 3.9 g/dL Normal 3.4-4.8 [facility] Comment on above: Performed By: #### L 501.2300, L100.0100, L500.4050 ####[facility] [address] [place], [address] Albumin/Globulin [Mass ratio] 1.4 {ratio} Normal 0.9-2.4 [facility] Comment on above: Performed By: #### L 501.2300, L100.0100, L500.4050 ####[facility] [address] [place], [address] ALK PHOS 101 U/L Normal 40-129 [facility] Comment on above: Performed By: #### L 501.2300, L100.0100, L500.4050 ####[facility] [address] [place], [address] ALT [Catalytic activity/Vol] 14 U/L Normal <=46 [facility] Comment on above: Performed By: #### L 501.2300, L100.0100, L500.4050 ####[facility] [address] [place], [address] AST [Catalytic activity/Vol] 22 U/L Normal <=37 [facility] Comment on above: Performed By: #### L 501.2300, L100.0100, L500.4050 ####[facility] [address] [place], [address] Bilirubin [Mass/Vol] 0.64 mg/dL Normal 0.00-1.30 [facility] Comment on above: Performed By: #### L 501.2300, L100.0100, L500.4050 ####[facility] [address] [place], [address] BUN/CRE 14.4 RATIO Normal 10-20 [facility] Comment on above: Performed By: #### L 501.2300, L100.0100, L500.4050 ####[facility] [address] [place], [address] Calcium [Mass/Vol] 8.8 mg/dL Normal 7.6-11.0 [facility] Comment on above: Performed By: #### L 501.2300, L100.0100, L500.4050 ####[facility] [address] [place], [address] Chloride [Moles/Vol] 96 mmol/L Low 98-108 [facility] Comment on above: Performed By: #### L 501.2300, L100.0100, L500.4050 ####[facility] [address] [place], [address] CO2 [Moles/Vol] 21.7 mmol/L Normal 21.0-32.0 [facility] Comment on above: Performed By: #### L 501.2300, L100.0100, L500.4050 ####[facility] [address] [place], [address] Creatinine [Mass/Vol] 0.97 mg/dL Normal 0.70-1.20 [facility] Comment on above: Performed By: #### L 501.2300, L100.0100, L500.4050 ####[facility] [address] [place], [address] ECRCL 56.79 ml/min Normal 50-250 [facility] Comment on above: Performed By: #### L 501.2300, L100.0100, L500.4050 ####[facility] [address] [place], [address] GAP 12 Normal 5-15 [facility] Comment on above: Performed By: #### L 501.2300, L100.0100, L500.4050 ####[facility] [address] [place], [address] GFR/1.73 sq M.predicted among non-blacks MDRD (S/P/Bld) [Vol rate/Area] 79 mL/min/{1.73_m2} Normal >60 [facility] Comment on above: Result Comment: mL/m in/1.73m2 CKD-EPI Creatinine Equation (2020) Performed By: #### L 501.2300, L100.0100, L500.4050 ####[facility] [address] [place], [address] Globulin (S) [Mass/Vol] 2.8 g/dL Normal 2.2-4.2 [facility] Comment on above: Performed By: #### L 501.2300, L100.0100, L500.4050 ####[facility] [address] [place], [address] Glucose [Mass/Vol] 99 mg/dL Normal 70-99 [facility] Comment on above: Performed By: #### L 501.2300, L100.0100, L500.4050 ####[facility] [address] [place], [address] Potassium [Moles/Vol] 4.1 mmol/L Normal 3.3-5.1 [facility] Comment on above: Performed By: #### L 501.2300, L100.0100, L500.4050 ####[facility] [address] [place], [address] Sodium [Moles/Vol] 130 mmol/L Low 133-145 [facility] Comment on above: Performed By: #### L 501.2300, L100.0100, L500.4050 ####[facility] [address] [place], [address] T PROT 6.7 g/dL Normal 5.9-8.4 [facility] Comment on above: Performed By: #### L 501.2300, L100.0100, L500.4050 ####[facility] [address] [place], [address] Urea nitrogen [Mass/Vol] 14 mg/dL Normal 4-19 [facility] Comment on above: Performed By: #### L 501.2300, L100.0100, L500.4050 ####[facility] [address] [place], [address] ENTERIC PATHOGEN PANEL STOOL on 11-06-2024 EP PANEL Normal [facility] Comment on above: Performed By: #### M 100.0605, M100.6796, M100.637, M600.5000 ####[facility] [address] [place], [address] Emergency Department Summary on 11-06-2024 Emergency Department Summary Normal [facility] Ferritinon 11-06-2024 Ferritin [Mass/Vol] 138 ng/mL Normal 37-417 [facility] Comment on above: Performed By: #### L 501.9520, L503.6550, L503.0106, L503.6030, L501.7300 ####[facility] [address] [place], [address] H AND P Exam - Hospitaliston 11-06-2024 H&P Exam - Hospitalist Normal [facility] Iron (Unsp spec) [Mass/Mass] Ordered By: Darrel Sanders on 11-06-2024 Iron [Mass/Vol] 50 ug/dL Low 65-175 [facility] Iron measurement (mass/mass) Ordered By: Darrel Sanders on 11-06-2024 Iron (Unsp spec) [Mass/Mass] 50 ug/dL Low 65-175 [facility] Iron saturation [Mass fracti on]Ordered By: Darrel Sanders on 11-06-2024 Iron Saturation 19.0 % 9-55 [facility] Iron+Iron Binding Capacityon 11-06-2024 Iron [Mass/Vol] 50 ug/dL Low 65-175 [facility] Comment on above: Performed By: #### L 501.9520, L503.6550, L503.0106, L503.6030, L501.7300 ####[facility] [address] [place], [address] IRON SATURATION 19.0 Normal 9-55 [facility] Comment on above: Performed By: #### L 501.9520, L503.6550, L503.0106, L503.6030, L501.7300 ####[facility] [address] [place], [address] TIBC 270 ug/dL Normal 250-450 [facility] Comment on above: Performed By: #### L 501.9520, L503.6550, L503.0106, L503.6030, L501.7300 ####[facility] [address] [place], [address] UIBC 220 ug/dL Low 228-428 [facility] Comment on above: Performed By: #### L 501.9520, L503.6550, L503.0106, L503.6030, L501.7300 ####[facility] [address] [place], [address] L499.0042on 11-06-2024 Trop T High Sen 23 ng/L High <=22 [facility] Comment on above: Performed By: #### L 499.0042 ####[facility] [address] [place], [address] L499.0043on 11-06-2024 Trop T High Sen 19 ng/L Normal <=22 [facility] Comment on above: Performed By: #### L 499.0043 ####[facility] [address] [place], [address] L501.4021on 11-06-2024 Trop T High Sen 18 ng/L Normal <=22 [facility] Comment on above: Performed By: #### L 501.4021 ####[facility] [address] [place], [address] Laboratory - Chemistry and C hemistry - challengeOrdered By: Darrel Sanders on 11-06-2024 AST [Catalytic activity/Vol] 22 U/L <38 [facility] Lactoferrin IA Ql (Stl)Order ed By: Darrel Sanders on 11-06-2024 Stool Lactoferrin [facility] MR/CON.PCM.GIon 11-06-2024 MR/CON.PCM.GI Normal [facility] MR/POSTOP.ANEon 11-06-2024 MR/POSTOP.ANE Normal [facility] MR/[id number] 11-06-2024 MR/POSTOPAN2 Normal [facility] Magnesiumon 11-06-2024 Magnesium [Mass/Vol] 2.3 mg/dL High 1.5-2.2 [facility] Comment on above: Performed By: #### L 501.5200 ####[facility] [address] [place], [address] No Panel InformationOrdered By: Darrel Sanders on 11-06-2024 Unsaturated Iron Binding Capacity 220 ug/dL Low 228-428 [facility] 22 U/L <38 [facility] 220 ug/dL Low 228-428 [facility] Osmolality (U) [Osmolality]O rdered By: Darrel Sanders on 11-06-2024 Urine Osmolality 363 mOsm/KG >50 [facility] Comment on above: Normal Urine Referen ce Ranges Random: 50 - 1200 mOsm/kg H20 depending on fluid intake Random: >850 mOsm/kg after 12 hour fluid restriction 24 hour: ~300 - 900 mOsm/kg H2O Osmolality urOrdered By: Esdras Sanders on 11-06-2024 Osmolality (U) [Osmolality] 363 mOsm/KG >50 [facility] Comment on above: Normal Urine Referen ce Ranges Random: 50 - 1200 mOsm/kg H20 depending on fluid intake Random: >850 mOsm/kg after 12 hour fluid restriction 24 hour: ~300 - 900 mOsm/kg H2O Osmolality, Serumon 11-07-19 25 OSMOLALITY,SER 279 mOsm/KG Low 280-301 [facility] Comment on above: Performed By: #### L 501.9520, L503.6550, L503.0106, L503.6030, L501.7300 ####[facility] [address] [place], [place], [id number] Osmolality, Urineon 11-07-19 25 OSMOLALITY,UR 363 mOsm/KG Normal [facility] Comment on above: Result Comment: Norm al Urine Reference Ranges Random: 50 - 1200 mOsm/kg H20 depending on fluid intake Random: >850 mOsm/kg after 12 hour fluid restriction 24 hour: 300 - 900 mOsm/kg H2O Performed By: #### L 501.7400 ####[facility] [address] [place], [address] Osmolality, serumOrdered By: Darrel Sanders on 11-06-2024 Serum Osmolality 279 mOsm/KG Low 280-301 [facility] Ova and parasitesOrdered By: Darrel Sanders on 11-06-2024 Ova and Parasites [facility] Phosphoruson 11-06-2024 Phosphate [Mass/Vol] 2.6 mg/dL Low 2.7-4.5 [facility] Comment on above: Performed By: #### L 501.2300, L100.0100, L500.4050 ####[facility] [address] [place], [place], [address] Serum globulin measurementOr dered By: Darrel Sanders on 11-06-2024 Globulin (S) [Mass/Vol] 2.8 g/dL 2.2-4.2 [facility] Serum or plasma alanine carrion otransferase (ALT) measurementOrdered By: Darrel Sanders on 11-06-2024 ALT [Catalytic activity/Vol] 14 U/L <47 [facility] Serum or plasma albumin shagufta urement (mass/volume)Ordered By: Darrel Sanders on 11-06-2024 Albumin [Mass/Vol] 3.9 g/dL 3.4-4.8 [facility] Serum or plasma albumin/glob ulin mass ratioOrdered By: Darrel Sanders on 11-06-2024 Albumin/Globulin [Mass ratio] 1.4 {ratio} 0.9-2.4 [facility] Serum or plasma alkaline airam sphatase measurementOrdered By: Darrel Sanders on 11-06-2024 ALP [Catalytic activity/Vol] 101 U/L 40-129 [facility] Serum or plasma ferritin francy surement (mass/volume)Ordered By: Darrel Sanders on 11-06-2024 Ferritin [Mass/Vol] 138 ng/mL 37-417 [facility] Serum or plasma iron saturat ion measurement (mass fraction)Ordered By: Darrel Sanders on 11-06-2024 Iron saturation [Mass fraction] 19.0 % 9-55 [facility] Serum phosphorus measurement Ordered By: Darrel Sanders on 11-06-2024 Phosphorus Level 2.6 mg/dL Low 2.7-4.5 [facility] Stool Lactoferrin/WBCon 04-0 WBCST Is the patient recei ving laxatives? N New/unexplained onset of 3 or more stools in past 24 hrs? Y Normal Reference Range = Negative Fecal WBC Lactoferrin A Positive: Fecal WBC Lactoferrin present A Normal [facility] Comment on above: Performed By: #### M 100.0605, M100.6796, M100.637, M600.5000 ####[facility] [address] [place], [address] Stool Occult Blood iFOBon STOB Positive Normal [facility] Comment on above: Performed By: #### M 100.7900, L300.4310, BTS, L503.6005, L500.2500, L100.0100, L300.3900 ####[facility] [address] [place], [address] Stool enteric pathogen panel by probe and target amplification methodOrdered By: Darrel Sanders on 11-06-2024 Enteric Bacteriology [facility] Stool lactoferrin detection by immunoassayOrdered By: Darrel Sanders on 11-06-2024 Lactoferrin IA Ql (Stl) [facility] TSH DL <= 0.005 mIU/L QnOrde red By: Darrel Sanders on 11-06-2024 Thyroid Stimulating Hormone (TSH) 1.900 uIU/mL 0.300-4.200 [facility] TSH Qn 1.900 uIU/mL 0.300-4.200 [facility] Thyroid Stim Hormone (TSH)on 11-06-2024 TSH 1.900 uIU/mL Normal 0.300-4.200 [facility] Comment on above: Performed By: #### L 501.9520, L503.6550, L503.0106, L503.6030, L501.7300 ####[facility] [address] [place], [place], [id number] Total proteinOrdered By: Esdras Sanders on 11-06-2024 Protein [Mass/Vol] 6.7 g/dL 5.9-8.4 [facility] Troponin T.cardiac High sens itivity method [Mass/Vol]Ordered By: Darrel Sanders on 11-06-2024 Troponin T High Sensitivity 4 Hour 19 ng/L <22 [facility] Troponin T High Sensitivity 2 Hour 23 ng/L High <22 [facility] Troponin T High Sensitivity 18 ng/L <22 [facility] Troponin T.cardiac [Mass/vol ume] in Serum or Plasma by High sensitivity methodOrdered By: Darrel Sanders on 11-06-2024 Troponin T.cardiac High sensitivity method [Mass/Vol] 19 ng/L <22 [facility] Troponin T.cardiac High sensitivity method [Mass/Vol] 23 ng/L High <22 [facility] Troponin T.cardiac High sensitivity method [Mass/Vol] 18 ng/L <22 [facility] Vitamin B12on 11-06-2024 Cobalamin (Vitamin B12) [Mass/Vol] 790 pg/mL Normal 180-914 [facility] Comment on above: Performed By: #### L 501.9520, L503.6550, L503.0106, L503.6030, L501.7300 ####[facility] [address] [place], [place], [id number] Vitamin B12 ser/plasOrdered By: Darrel Sanders on 11-06-2024 Cobalamin (Vitamin B12) [Mass/Vol] 790 pg/mL 180-914 [facility] Absolute neutrophil countOrd ered By: Harrison Linares on 11-05-2024 Neutrophils (Bld) [#/Vol] 6.9 10*3/uL 2.0-7.7 [facility] Activated partial thrombopla stin time (aPTT) in platelet poor plasma by coagulation aOrdered By: Harrison Linares on 11-05-2024 aPTT Coag (PPP) [Time] 22.1 s Low 24.1-36.2 [facility] Anion gap in Serum or Plasma Ordered By: Harrison Linares on 11-05-2024 Anion gap [Moles/Vol] 12 mmol/L - [facility] BUN/creatinine ratioOrdered By: Harrison Linares on 11-05-2024 Urea nitrogen/Creatinine [Mass ratio] 15.4 mg/mg - [facility] Basic Metabolic Profile (BMP )on 11-05-2024 BUN/CRE 15.4 RATIO Normal 05-20 [facility] Comment on above: Performed By: #### M 100.7900, L300.4310, BTS, L503.6005, L500.2500, L100.0100, L300.3900 ####[facility] [address] [place], [address] Calcium [Mass/Vol] 9.0 mg/dL Normal 7.6-11.0 [facility] Comment on above: Performed By: #### M 100.7900, L300.4310, BTS, L503.6005, L500.2500, L100.0100, L300.3900 ####[facility] [address] [place], [address] Chloride [Moles/Vol] 90 mmol/L Low 98-108 [facility] Comment on above: Performed By: #### M 100.7900, L300.4310, BTS, L503.6005, L500.2500, L100.0100, L300.3900 ####[facility] [address] [place], [address] CO2 [Moles/Vol] 23.8 mmol/L Normal 21.0-32.0 [facility] Comment on above: Performed By: #### M 100.7900, L300.4310, BTS, L503.6005, L500.2500, L100.0100, L300.3900 ####[facility] [address] [place], [address] Creatinine [Mass/Vol] 0.92 mg/dL Normal 0.70-1.20 [facility] Comment on above: Performed By: #### M 100.7900, L300.4310, BTS, L503.6005, L500.2500, L100.0100, L300.3900 ####[facility] [address] [place], [address] ECRCL 59.87 ml/min Normal 50-250 [facility] Comment on above: Performed By: #### M 100.7900, L300.4310, BTS, L503.6005, L500.2500, L100.0100, L300.3900 ####[facility] [address] [place], [address] GAP 12 Normal 5-15 [facility] Comment on above: Performed By: #### M 100.7900, L300.4310, BTS, L503.6005, L500.2500, L100.0100, L300.3900 ####[facility] [address] [place], [address] GFR/1.73 sq M.predicted among non-blacks MDRD (S/P/Bld) [Vol rate/Area] 84 mL/min/{1.73_m2} Normal >60 [facility] Comment on above: Result Comment: mL/m in/1.73m2 CKD-EPI Creatinine Equation (2020) Performed By: #### M 100.7900, L300.4310, BTS, L503.6005, L500.2500, L100.0100, L300.3900 ####[facility] [address] [place], [address] Glucose [Mass/Vol] 110 mg/dL High 70-99 [facility] Comment on above: Performed By: #### M 100.7900, L300.4310, BTS, L503.6005, L500.2500, L100.0100, L300.3900 ####[facility] [address] [place], [address] Potassium [Moles/Vol] 4.0 mmol/L Normal 3.3-5.1 [facility] Comment on above: Performed By: #### M 100.7900, L300.4310, BTS, L503.6005, L500.2500, L100.0100, L300.3900 ####[facility] [address] [place], [address] Sodium [Moles/Vol] 126 mmol/L Low 133-145 [facility] Comment on above: Performed By: #### M 100.7900, L300.4310, BTS, L503.6005, L500.2500, L100.0100, L300.3900 ####[facility] [address] [place], [address] Urea nitrogen [Mass/Vol] 14 mg/dL Normal 4-19 [facility] Comment on above: Performed By: #### M 100.7900, L300.4310, BTS, L503.6005, L500.2500, L100.0100, L300.3900 ####[facility] [address] [place], [address] Basophil percentageOrdered B y: Harrison Linares on 11-05-2024 Basophils/100 WBC (Bld) 0.2 % 0-1 [facility] CBC W/Diff, Automatedon 04- Absolute Lymph 1.16 X10 3/uL Normal 0.83-4.51 [facility] Comment on above: Order Comment: TAMMY Sylvester PREVIOUS SPECIMEN REJECTED DUE TOCLOTTED. 11/05/24 2305 Quintin Cardenas. Performed By: #### L 100.0100 ####[facility] [address] [place], [address] Absolute Neut 6.9 X10 3/uL Normal 2.0-7.7 [facility] Comment on above: Order Comment: REDRA W. PREVIOUS SPECIMEN REJECTED DUE TOCLOTTED. 11/05/242304 Quintin R Cardenas. Performed By: #### L 100.0100 ####[facility] [address] [place], [address] Basophils/100 WBC (Bld) 0.2 % Normal 0-1 [facility] Comment on above: Order Comment: REDRA W. PREVIOUS SPECIMEN REJECTED DUE TOCLOTTED. 11/05/242304 Quintin R Cardenas. Performed By: #### L 100.0100 ####[facility] [address] [place], [address] Eosinophils/100 WBC (Bld) 0.6 % Normal 0-5 [facility] Comment on above: Order Comment: REDRA W. PREVIOUS SPECIMEN REJECTED DUE TOCLOTTED. 11/05/242304 Quintin R Cardenas. Performed By: #### L 100.0100 ####[facility] [address] [place], [address] Erythrocyte distribution width (RBC) [Ratio] 12.2 % Normal 11.6-14.6 [facility] Comment on above: Order Comment: REDRA W. PREVIOUS SPECIMEN REJECTED DUE TOCLOTTED. 11/05/242304 Quintin R Cardenas. Performed By: #### L 100.0100 ####[facility] [address] [place], [address] Hematocrit (Bld) [Volume fraction] 32.9 % Low 40-54 [facility] Comment on above: Order Comment: REDRA W. PREVIOUS SPECIMEN REJECTED DUE TOCLOTTED. 11/05/242304 Quintin R Cardenas. Performed By: #### L 100.0100 ####[facility] [address] [place], [address] Hemoglobin (Bld) [Mass/Vol] 11.5 g/dL Low 13.0-16.5 [facility] Comment on above: Order Comment: REDRA W. PREVIOUS SPECIMEN REJECTED DUE TOCLOTTED. 11/05/242304 Quintin R Cardenas. Performed By: #### L 100.0100 ####[facility] [address] [place], [address] IG% 0.600 Normal 0.0-0.9 [facility] Comment on above: Order Comment: REDRA W. PREVIOUS SPECIMEN REJECTED DUE TOCLOTTED. 11/05/242304 Quintin R Cardenas. Result Comment: IG% - Immature Granulocytes (promyelocytes, myelocytes andmetamyelocytes) > 1% indicates that a LEFT SHIFT is Present. Performed By: #### L 100.0100 ####[facility] [address] [place], [address] Lymphocytes/100 WBC (Bld) 12.9 % Low 19-41 [facility] Comment on above: Order Comment: REDRA W. PREVIOUS SPECIMEN REJECTED DUE TOCLOTTED. 11/05/242304 Quintin R Cardenas. Performed By: #### L 100.0100 ####[facility] [address] [place], [address] MCH (RBC) [Entitic mass] 30.5 pg Normal 27.0-32.0 [facility] Comment on above: Order Comment: REDRA W. PREVIOUS SPECIMEN REJECTED DUE TOCLOTTED. 11/05/242304 Quintin R Cardenas. Performed By: #### L 100.0100 ####[facility] [address] [place], [address] MCHC (RBC) [Mass/Vol] 35.0 g/dL Normal 32-36 [facility] Comment on above: Order Comment: REDRA W. PREVIOUS SPECIMEN REJECTED DUE TOCLOTTED. 11/05/242304 Quintin R Cardenas. Performed By: #### L 100.0100 ####[facility] [address] [place], [address] MCV (RBC) [Entitic vol] 87.3 fL Normal 80-94 [facility] Comment on above: Order Comment: REDRA W. PREVIOUS SPECIMEN REJECTED DUE TOCLOTTED. 11/05/242304 Quintin R Cardenas. Performed By: #### L 100.0100 ####[facility] [address] [place], [address] Monocytes/100 WBC (Bld) 8.9 % Normal 0-10 [facility] Comment on above: Order Comment: REDRA W. PREVIOUS SPECIMEN REJECTED DUE TOCLOTTED. 11/05/242304 Quintin R Cardenas. Performed By: #### L 100.0100 ####[facility] [address] [place], [address] Neutrophils/100 WBC (Bld) 76.8 % High 47-70 [facility] Comment on above: Order Comment: REDRA W. PREVIOUS SPECIMEN REJECTED DUE TOCLOTTED. 11/05/242304 Quintin R Cardenas. Performed By: #### L 100.0100 ####[facility] [address] [place], [address] Nucleated RBC (Bld) [#/Vol] 0 10*3/uL Normal 0-5 [facility] Comment on above: Order Comment: REDRA W. PREVIOUS SPECIMEN REJECTED DUE TOCLOTTED. 11/05/242304 Quintin R Cardenas. Performed By: #### L 100.0100 ####[facility] [address] [place], [address] Platelet mean volume (Bld) [Entitic vol] 8.7 fL Normal 6.2-12.0 [facility] Comment on above: Order Comment: REDRA W. PREVIOUS SPECIMEN REJECTED DUE TOCLOTTED. 11/05/242304 Quintin R Cardenas. Performed By: #### L 100.0100 ####[facility] [address] [place], [address] Platelets (Bld) [#/Vol] 274 10*3/uL Normal 150-450 [facility] Comment on above: Order Comment: REDRA W. PREVIOUS SPECIMEN REJECTED DUE TOCLOTTED. 11/05/242304 Quintin R Cardenas. Performed By: #### L 100.0100 ####[facility] [address] [place], [address] RBC (Bld) [#/Vol] 3.77 10*6/uL Low 4.6-6.2 [facility] Comment on above: Order Comment: REDRA W. PREVIOUS SPECIMEN REJECTED DUE TOCLOTTED. 11/05/242304 Quintin R Cardenas. Performed By: #### L 100.0100 ####[facility] [address] [place], [address] RDW SD 39.0 fl Normal 35.1-43.9 [facility] Comment on above: Order Comment: REDRA W. PREVIOUS SPECIMEN REJECTED DUE TOCLOTTED. 11/05/242304 Quintin R Cardenas. Performed By: #### L 100.0100 ####[facility] [address] [place], [address] WBC (Bld) [#/Vol] 9.0 10*3/uL Normal 4.4-11.0 [facility] Comment on above: Order Comment: REDRA W. PREVIOUS SPECIMEN REJECTED DUE TOCLOTTED. 11/05/242304 Quintin R Cardenas. Performed By: #### L 100.0100 ####[facility] [address] [place], [address] Absolute Neut Normal 2.0-7.7 [facility] Comment on above: Result Comment: This specimen has been REJECTED due to Laboratory criteria:Clotted.AUGUSTOITE has been notified of need of recollection.11/05/242304 Quintin R Cardenas Performed By: #### M 100.7900, L300.4310, BTS, L503.6005, L500.2500, L100.0100, L300.3900 ####[facility] [address] [place], [address] HCT Normal 40-54 [facility] Comment on above: Result Comment: This specimen has been REJECTED due to Laboratory criteria:Clotted.CARGABRITE has been notified of need of recollection.11/05/242304 Quintin R Cardenas Performed By: #### M 100.7900, L300.4310, BTS, L503.6005, L500.2500, L100.0100, L300.3900 ####[facility] [address] [place], [address] HGB Normal 13.0-16.5 [facility] Comment on above: Result Comment: This specimen has been REJECTED due to Laboratory criteria:Clotted.CARGABRITE has been notified of need of recollection.11/05/242304 Quintin R Cardenas Performed By: #### M 100.7900, L300.4310, BTS, L503.6005, L500.2500, L100.0100, L300.3900 ####[facility] [address] [place], [place], [phone](344) MCH Normal 27.0-32.0 [facility] Comment on above: Result Comment: This specimen has been REJECTED due to Laboratory criteria:Clotted.CARGABRITE has been notified of need of recollection.11/05/242304 Quintin R Cardenas Performed By: #### M 100.7900, L300.4310, BTS, L503.6005, L500.2500, L100.0100, L300.3900 ####[facility] [address] [place], [place], [phone](574) MCHC Normal 32-36 [facility] Comment on above: Result Comment: This specimen has been REJECTED due to Laboratory criteria:Clotted.CARGABRITE has been notified of need of recollection.11/05/242304 Quintin R Cardenas Performed By: #### M 100.7900, L300.4310, BTS, L503.6005, L500.2500, L100.0100, L300.3900 ####[facility] [address] [place], [address] MCV Normal 80-94 [facility] Comment on above: Result Comment: This specimen has been REJECTED due to Laboratory criteria:Clotted.CARGABRITE has been notified of need of recollection.11/05/242304 Quintin R Cardenas Performed By: #### M 100.7900, L300.4310, BTS, L503.6005, L500.2500, L100.0100, L300.3900 ####[facility] [address] [place], [address] NEUT% Normal 47-70 [facility] Comment on above: Result Comment: This specimen has been REJECTED due to Laboratory criteria:Clotted.CARGABRITE has been notified of need of recollection.11/05/242304 Quintin R Cardenas Performed By: #### M 100.7900, L300.4310, BTS, L503.6005, L500.2500, L100.0100, L300.3900 ####[facility] [address] [place], [address] PLT Normal 150-450 [facility] Comment on above: Result Comment: This specimen has been REJECTED due to Laboratory criteria:Clotted.CARGABRITE has been notified of need of recollection.11/05/242304 Quintin R Cardenas Performed By: #### M 100.7900, L300.4310, BTS, L503.6005, L500.2500, L100.0100, L300.3900 ####[facility] [address] [place], [address] RBC Normal 4.6-6.2 [facility] Comment on above: Result Comment: This specimen has been REJECTED due to Laboratory criteria:Clotted.CARGABRITE has been notified of need of recollection.11/05/242304 Quintin R Cardenas Performed By: #### M 100.7900, L300.4310, BTS, L503.6005, L500.2500, L100.0100, L300.3900 ####[facility] [address] [place], [place], [phone]([phone] RDW CV Normal 11.6-14.6 [facility] Comment on above: Result Comment: This specimen has been REJECTED due to Laboratory criteria:Clotted.CARGABRITE has been notified of need of recollection.11/05/242304 Quintin R Cardenas Performed By: #### M 100.7900, L300.4310, BTS, L503.6005, L500.2500, L100.0100, L300.3900 ####[facility] [address] [place], [place], [phone] RDW SD Normal 35.1-43.9 [facility] Comment on above: Result Comment: This specimen has been REJECTED due to Laboratory criteria:Clotted.CARGABRITE has been notified of need of recollection.11/05/242304 Quintin R Cardenas Performed By: #### M 100.7900, L300.4310, BTS, L503.6005, L500.2500, L100.0100, L300.3900 ####[facility] [address] [place], [place], [id number](709) WBC Normal 4.4-11.0 [facility] Comment on above: Result Comment: This specimen has been REJECTED due to Laboratory criteria:Clotted.CARGABRITE has been notified of need of recollection.11/05/242304 Quintin R Cardenas Performed By: #### M 100.7900, L300.4310, BTS, L503.6005, L500.2500, L100.0100, L300.3900 ####[facility] [address] [place], [address] CTA Abd/Pelvis W/WO Contrast on 11-05-2024 CTA Abd/Pelvis W/WO Contrast Normal [facility] Carbon dioxide, total [Moles /volume] in Central venous bloodOrdered By: Harrison Linares on 11-05-2024 CO2 [Moles/Vol] 23.8 mmol/L 21.0-32.0 [facility] Chloride assayOrdered By: Erica Linares on 11-05-2024 Chloride [Moles/Vol] 90 mmol/L Low 98-108 [facility] Eosinophil percentageOrdered By: Harrison Linares on 11-05-2024 Eosinophils/100 WBC (Bld) 0.6 % 0-5 [facility] Erythrocyte distribution wid th (RBC) [Ratio]Ordered By: Harrison Linares on 11-05-2024 Erythrocyte distribution width (RBC) [Entitic vol] 39.0 fL 35.1-43.9 [facility] Erythrocyte distribution wid th ratioOrdered By: Harrison Linares on 11-05-2024 Erythrocyte distribution width (RBC) [Ratio] 12.2 % 11.6-14.6 [facility] Estimation of creatinine dunia aranceOrdered By: Harrison Linares on 11-05-2024 Estimated Creatinine Clearance Calc 59.87 ml/min 50-250 [facility] GFR/1.73 sq M.predicted gregg g non-blacks MDRD (S/P/Bld) [Vol rate/Area]Ordered By: Harrison Linares on 11-05-2024 Estimated GFR (MDRD) Non-Af Amer 84 >60 [facility] Comment on above: mL/min/1.73m2 CKD-EP I Creatinine Equation (2020) Hematocrit Auto (Bld) [Volum e fraction]Ordered By: Harrison Linares on 11-05-2024 Hematocrit (Bld) [Volume fraction] 32.9 % Low 40-54 [facility] Hemoglobin measurementOrdere d By: Harrison Linares on 11-05-2024 Hemoglobin (Bld) [Mass/Vol] 11.5 g/dL Low 13.0-16.5 [facility] Immature granulocytes/100 WB C Auto (Bld)Ordered By: Harrison Linares on 11-05-2024 Immature granulocytes/100 WBC (Bld) 0.600 % 0.0-0.9 [facility] Comment on above: IG% - Immature Granu locytes (promyelocytes, myelocytes and metamyelocytes) > 1% indicates that a LEFT SHIFT is Present. International normalized rat io (INR) calculationOrdered By: Harrison Linares on 11-05-2024 INR Coag (Bld) [Relative time] 0.9 {INR} [facility] Lactic Acidon 11-05-2024 Lactate [Moles/Vol] mmol/L Normal 0.0-2.0 [facility] Comment on above: Order Comment: Y Performed By: #### M 100.7900, L300.4310, BTS, L503.6005, L500.2500, L100.0100, L300.3900 ####[facility] [address] [place], [address] Lactic acid measurementOrder ed By: Harrison Linares on 11-05-2024 Lactate [Moles/Vol] mmol/L 0.0-2.0 [facility] Lower GI hemoglobin IA Ql (S tl)Ordered By: Harrison Linares on 11-05-2024 Stool Occult Blood (EDINSON) Positive Abnormal [facility] Lymphocytes Auto (Unsp spec) [#/Vol]Ordered By: Harrison Linares on 11-05-2024 Lymphocytes (Bld) [#/Vol] 1.16 10*3/uL 0.83-4.51 [facility] Lymphocytes/100 WBC Auto (Un sp spec)Ordered By: Harrison Linares on 11-05-2024 Lymphocytes/100 WBC (Bld) 12.9 % Low 19-41 [facility] MCV (mean corpuscular volume ) determinationOrdered By: Harrison Linares on 11-05-2024 MCV (RBC) [Entitic vol] 87.3 fL 80-94 [facility] Magnesium (Unsp spec) [Mass/ Vol]Ordered By: Darrel Sanders on 11-05-2024 Magnesium [Mass/Vol] 2.3 mg/dL High 1.5-2.2 [facility] Magnesium measurement (mass/ volume)Ordered By: Darrel Sanders on 11-05-2024 Magnesium (Unsp spec) [Mass/Vol] 2.3 mg/dL High 1.5-2.2 [facility] Mean corpuscular hemoglobin (MCH) determinationOrdered By: Harrison Linares on 11-05-2024 MCH (RBC) [Entitic mass] 30.5 pg 27.0-32.0 [facility] Mean corpuscular hemoglobin concentration (MCHC) determinationOrdered By: Harrison Linares on 11-05-2024 MCHC (RBC) [Mass/Vol] 35.0 g/dL 32-36 [facility] Mean platelet volume determi nationOrdered By: Harrison Linares on 11-05-2024 Platelet mean volume (Bld) [Entitic vol] 8.7 fL 6.2-12.0 [facility] Monocyte percentageOrdered B y: Harrison Linares on 11-05-2024 Monocytes/100 WBC (Bld) 8.9 % 0-10 [facility] Neutrophil percentageOrdered By: Harrison Linares on 11-05-2024 Neutrophils/100 WBC (Bld) 76.8 % High 47-70 [facility] Nucleated red blood cell per centageOrdered By: Harrison Linares on 11-05-2024 Nucleated RBC/100 WBC (Bld) [Ratio] 0 % 0-5 [facility] Partial Thromboplast Timeon 11-05-2024 aPTT Coag (Bld) [Time] 22.1 s Low 24.1-36.2 [facility] Comment on above: Performed By: #### M 100.7900, L300.4310, BTS, L503.6005, L500.2500, L100.0100, L300.3900 ####[facility] [address] [place], [address] Platelet countOrdered By: Erica Linares on 11-05-2024 Platelets (Bld) [#/Vol] 274 10*3/uL 150-450 [facility] Potassium (Unsp spec) [Mass/ Vol]Ordered By: Harrison Linares on 11-05-2024 Potassium [Moles/Vol] 4.0 mmol/L 3.3-5.1 [facility] Prothrombin Time w/INRon INR Coag (PPP) [Relative time] 0.9 {INR} Normal [facility] Comment on above: Performed By: #### M 100.7900, L300.4310, BTS, L503.6005, L500.2500, L100.0100, L300.3900 ####[facility] [address] [place], [address] PT Coag (PPP) [Time] 12.2 s Normal 11.7-14.9 [facility] Comment on above: Performed By: #### M 100.7900, L300.4310, BTS, L503.6005, L500.2500, L100.0100, L300.3900 ####[facility] [address] [place], [place], [id number] Prothrombin timeOrdered By: Harrison Linares on 11-05-2024 PT Coag (PPP) [Time] 12.2 s 11.7-14.9 [facility] RBC Auto (Bld) [#/Vol]Ordere d By: Harrison Linares on 11-05-2024 RBC (Bld) [#/Vol] 3.77 10*6/uL Low 4.6-6.2 [facility] Serum creatinine measurement (mass/volume)Ordered By: Harrison Linares on 11-05-2024 Creatinine [Mass/Vol] 0.92 mg/dL 0.70-1.20 [facility] Serum glucose measurement (m ass/volume)Ordered By: Harrison Linares on 11-05-2024 Glucose [Mass/Vol] 110 mg/dL High 70-99 [facility] Serum or plasma calcium shagufta urement (mass/volume)Ordered By: Harrison Linares on 11-05-2024 Calcium [Mass/Vol] 9.0 mg/dL 7.6-11.0 [facility] Serum or plasma urea nitroge n measurement (mass/volume)Ordered By: Harrison Linares on 11-05-2024 Urea nitrogen [Mass/Vol] 14 mg/dL 4-19 [facility] Sodium levelOrdered By: Dylan Linares on 11-05-2024 Sodium [Moles/Vol] 126 mmol/L Low 133-145 [facility] Stool gastrointestinal hemog lobin detection by immunologic methodOrdered By: Harrison Linares on 11-05-2024 Lower GI hemoglobin IA Ql (Stl) Positive Abnormal [facility] Type AND Screenon 11-05-2024 ABO and Rh group Nom (Bld) Blood group O Rh(D) positive Normal [facility] Comment on above: Order Comment: HGI Performed By: #### M 100.7900, L300.4310, BTS, L503.6005, L500.2500, L100.0100, L300.3900 ####[facility] [address] [place], [address] White blood cell (WBC) count Ordered By: Harrison Linares on 11-05-2024 WBC (Bld) [#/Vol] 9.0 10*3/uL 4.4-11.0 [facility] aPTT Coag (PPP) [Time]Ordere d By: Harrison Linares on 11-05-2024 aPTT Coag (Bld) [Time] 22.1 s Low 24.1-36.2 [facility] CNPNon 11-02-2024 TONAN Telephone (CHRIS) -- JARED RAYMOND ([id number]) 1945 M Date Time Provider Department 11/02/24 PAPI HERNANDEZ During your visit today, we recorded the following information about you: Filomena Rodrigues 11/02/2024 2:33 PM Signed Patient and his daughter stopped in to talk to Jolynn Frias. 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 Please call patients daughter Teresa [phone] Allergies As of Date: 11/02/2024 (No Known Allergies) Date Reviewed: 05/05/2020 Reviewed by: Caro Mo (Rn), RN - Fully Assessed Reason for Visit: Patient Question [2678] Prescriptions as of 01/12/2025 - amLODIPine (NORVASC) [...] of Hemorrhage [*03/23/2010 Coronary artery disease involving [place] kern*07/18/2019 History of varicose veins [Z86.79] 07/18/2019 Chest pain, unspecified [R07.9] 07/18/2019 History of CVA (cerebrovascular accident) [Z86.*07/18/2019 Discharge planning issues [Z75.8] 07/18/2019 Preop testing [Z01.818] 07/18/2019 On mechanically assisted ventilation (HCC) [Z99*07/19/2019 07/20/2019 Pain, postoperative, acute [G89.18] 07/19/2019 Stress hyperglycemia [R73.9] 07/19/2019 07/21/2019 Atelectasis [J98.11] 07/20/2019 Transition of care performed with sharing of cl*07/21/2019 Encounter Status:Closed by FILOMENA RODRIGUES on 01/12/25 Normal [facility] Oncology Visit Reporton 04-0 Oncology Visit Report Normal [facility] Carcinoembryonic Antigenon 0 - CEA 25.2 ng/mL High 0.0-4.7 [facility] Comment on above: Order Comment: ADD O N TO BW-ALREADY IN LAB Result Comment: Nons mokers <3.9 Smokers <5.6[employer] Electrochemiluminescence Immunoassay(ECLIA)Values obtained with different assay methods or kitscannot be used interchangeably. Results cannot beinterpreted as absolute evidence of the presence orabsence of malignant disease.Performed at: [address] [id number] Director: Jian Paredes PhD, Phone: [phone] Performed By: #### L 3100.2300 ####[facility] [address] [place], [address] Abdomen/Pelvis W IV Cont ONL Yon 10-24-2024 Abdomen/Pelvis W IV Cont ONLY Normal [facility] Absolute lymphocyte countOrd ered By: Jerry Hightower on 10-24-2024 Lymphocytes Auto (Unsp spec) [#/Vol] 1.10 10*3/uL 0.83-4.51 [facility] Absolute lymphocyte countOrd ered By: Papi Hernandez on 10-24-2024 Lymphocytes Auto (Unsp spec) [#/Vol] 1.26 10*3/uL 0.83-4.51 [facility] Absolute neutrophil countOrd ered By: Jerry Hightower on 10-24-2024 Neutrophils (Bld) [#/Vol] 6.7 10*3/uL 2.0-7.7 [facility] Absolute neutrophil countOrd ered By: Papi Hernandez on 10-24-2024 Neutrophils (Bld) [#/Vol] 6.5 10*3/uL 2.0-7.7 [facility] Anion gap in Serum or Plasma Ordered By: Jerry Hightower on 10-24-2024 Anion gap [Moles/Vol] 11 mmol/L 12-13 [facility] Anion gap in Serum or Plasma Ordered By: Papi Hernandez on 10-24-2024 Anion gap [Moles/Vol] 9 mmol/L 12-13 [facility] Automated lymphocyte count a s percentage of total leukocytesOrdered By: Jerry Hightower on 10-24-2024 Lymphocytes/100 WBC Auto (Unsp spec) 12.7 % Low [facility] Automated lymphocyte count a s percentage of total leukocytesOrdered By: Papi Hernandez on 10-24-2024 Lymphocytes/100 WBC Auto (Unsp spec) 14.4 % Low [facility] BUN/creatinine ratioOrdered By: Jerry Hightower on 10-24-2024 Urea nitrogen/Creatinine [Mass ratio] 11.6 mg/mg 05-20 [facility] BUN/creatinine ratioOrdered By: Papi Hernandez on 10-24-2024 Urea nitrogen/Creatinine [Mass ratio] 12.0 mg/mg 05-20 [facility] Basophil percentageOrdered B y: Jerry Hightower on 10-24-2024 Basophils/100 WBC (Bld) 0.3 % 0-1 [facility] Basophil percentageOrdered B y: Papi Hernandez on 10-24-2024 Basophils/100 WBC (Bld) 0.3 % 0-1 [facility] Bilirubin Test strip Ql (U)O rdered By: Jerry Hightower on 10-24-2024 Bilirubin Ql (U) Negative Negative [facility] Bilirubin, totalOrdered By: Jerry Hightower on 10-24-2024 Bilirubin [Mass/Vol] 0.55 mg/dL 0.00-1.30 [facility] Bilirubin, totalOrdered By: Papi Hernandez on 10-24-2024 Bilirubin [Mass/Vol] 0.50 mg/dL 0.00-1.30 [facility] CBC W/Diff, Automatedon 09-30 Absolute Lymph 1.10 X10 3/uL Normal 0.83-4.51 [facility] Comment on above: Performed By: #### L 500.4050, L501.2450, L100.0100, L503.6005 ####[facility] [address] [place], [address] Absolute Neut 6.7 X10 3/uL Normal 2.0-7.7 [facility] Comment on above: Performed By: #### L 500.4050, L501.2450, L100.0100, L503.6005 ####[facility] [address] [place], [address] Basophils/100 WBC (Bld) 0.3 % Normal 0-1 [facility] Comment on above: Performed By: #### L 500.4050, L501.2450, L100.0100, L503.6005 ####[facility] [address] [place], [address] Eosinophils/100 WBC (Bld) 1.0 % Normal 0-5 [facility] Comment on above: Performed By: #### L 500.4050, L501.2450, L100.0100, L503.6005 ####[facility] [address] [place], [address] Erythrocyte distribution width (RBC) [Ratio] 12.4 % Normal 11.6-14.6 [facility] Comment on above: Performed By: #### L 500.4050, L501.2450, L100.0100, L503.6005 ####[facility] [address] [place], [address] Hematocrit (Bld) [Volume fraction] 37.0 % Low 40-54 [facility] Comment on above: Performed By: #### L 500.4050, L501.2450, L100.0100, L503.6005 ####[facility] [address] [place], [address] Hemoglobin (Bld) [Mass/Vol] 13.1 g/dL Normal 13.0-16.5 [facility] Comment on above: Performed By: #### L 500.4050, L501.2450, L100.0100, L503.6005 ####[facility] [address] [place], [address] IG% 0.500 Normal 0.0-0.9 [facility] Comment on above: Result Comment: IG% - Immature Granulocytes (promyelocytes, myelocytes andmetamyelocytes) > 1% indicates that a LEFT SHIFT is Present. Performed By: #### L 500.4050, L501.2450, L100.0100, L503.6005 ####[facility] [address] [place], [address] Lymphocytes/100 WBC (Bld) 12.7 % Low 19-41 [facility] Comment on above: Performed By: #### L 500.4050, L501.2450, L100.0100, L503.6005 ####[facility] [address] [place], [address] MCH (RBC) [Entitic mass] 30.8 pg Normal 27.0-32.0 [facility] Comment on above: Performed By: #### L 500.4050, L501.2450, L100.0100, L503.6005 ####[facility] [address] [place], [address] MCHC (RBC) [Mass/Vol] 35.4 g/dL Normal 32-36 [facility] Comment on above: Performed By: #### L 500.4050, L501.2450, L100.0100, L503.6005 ####[facility] [address] [place], [address] MCV (RBC) [Entitic vol] 87.1 fL Normal 80-94 [facility] Comment on above: Performed By: #### L 500.4050, L501.2450, L100.0100, L503.6005 ####[facility] [address] [place], [address] Monocytes/100 WBC (Bld) 8.4 % Normal 0-10 [facility] Comment on above: Performed By: #### L 500.4050, L501.2450, L100.0100, L503.6005 ####[facility] [address] [place], [address] Neutrophils/100 WBC (Bld) 77.1 % High 47-70 [facility] Comment on above: Performed By: #### L 500.4050, L501.2450, L100.0100, L503.6005 ####[facility] [address] [place], [address] Nucleated RBC (Bld) [#/Vol] 0 10*3/uL Normal 0-5 [facility] Comment on above: Performed By: #### L 500.4050, L501.2450, L100.0100, L503.6005 ####[facility] [address] [place], [address] Platelet mean volume (Bld) [Entitic vol] 9.0 fL Normal 6.2-12.0 [facility] Comment on above: Performed By: #### L 500.4050, L501.2450, L100.0100, L503.6005 ####[facility] [address] [place], [address] Platelets (Bld) [#/Vol] 307 10*3/uL Normal 150-450 [facility] Comment on above: Performed By: #### L 500.4050, L501.2450, L100.0100, L503.6005 ####[facility] [address] [place], [address] RBC (Bld) [#/Vol] 4.25 10*6/uL Low 4.6-6.2 [facility] Comment on above: Performed By: #### L 500.4050, L501.2450, L100.0100, L503.6005 ####[facility] [address] [place], [address] RDW SD 39.6 fl Normal 35.1-43.9 [facility] Comment on above: Performed By: #### L 500.4050, L501.2450, L100.0100, L503.6005 ####[facility] [address] [place], [address] WBC (Bld) [#/Vol] 8.7 10*3/uL Normal 4.4-11.0 [facility] Comment on above: Performed By: #### L 500.4050, L501.2450, L100.0100, L503.6005 ####[facility] [address] [place], [address] Absolute Lymph 1.26 X10 3/uL Normal 0.83-4.51 [facility] Comment on above: Performed By: #### L 900.0098, L504.2610, L100.0100, L500.4050 ####[facility] [address] [place], [address] Absolute Neut 6.5 X10 3/uL Normal 2.0-7.7 [facility] Comment on above: Performed By: #### L 900.0098, L504.2610, L100.0100, L500.4050 ####[facility] [address] [place], [address] Basophils/100 WBC (Bld) 0.3 % Normal 0-1 [facility] Comment on above: Performed By: #### L 900.0098, L504.2610, L100.0100, L500.4050 ####[facility] [address] [place], [address] Eosinophils/100 WBC (Bld) 1.6 % Normal 0-5 [facility] Comment on above: Performed By: #### L 900.0098, L504.2610, L100.0100, L500.4050 ####[facility] [address] [place], [address] Erythrocyte distribution width (RBC) [Ratio] 12.5 % Normal 11.6-14.6 [facility] Comment on above: Performed By: #### L 900.0098, L504.2610, L100.0100, L500.4050 ####[facility] [address] [place], [address] Hematocrit (Bld) [Volume fraction] 38.0 % Low 40-54 [facility] Comment on above: Performed By: #### L 900.0098, L504.2610, L100.0100, L500.4050 ####[facility] [address] [place], [address] Hemoglobin (Bld) [Mass/Vol] 13.2 g/dL Normal 13.0-16.5 [facility] Comment on above: Performed By: #### L 900.0098, L504.2610, L100.0100, L500.4050 ####[facility] [address] [place], [address] IG% 0.200 Normal 0.0-0.9 [facility] Comment on above: Result Comment: IG% - Immature Granulocytes (promyelocytes, myelocytes andmetamyelocytes) > 1% indicates that a LEFT SHIFT is Present. Performed By: #### L 900.0098, L504.2610, L100.0100, L500.4050 ####[facility] [address] [place], [address] Lymphocytes/100 WBC (Bld) 14.4 % Low 19-41 [facility] Comment on above: Performed By: #### L 900.0098, L504.2610, L100.0100, L500.4050 ####[facility] [address] [place], [address] MCH (RBC) [Entitic mass] 30.8 pg Normal 27.0-32.0 [facility] Comment on above: Performed By: #### L 900.0098, L504.2610, L100.0100, L500.4050 ####[facility] [address] [place], [address] MCHC (RBC) [Mass/Vol] 34.7 g/dL Normal 32-36 [facility] Comment on above: Performed By: #### L 900.0098, L504.2610, L100.0100, L500.4050 ####[facility] [address] [place], [address] MCV (RBC) [Entitic vol] 88.8 fL Normal 80-94 [facility] Comment on above: Performed By: #### L 900.0098, L504.2610, L100.0100, L500.4050 ####[facility] [address] [place], [address] Monocytes/100 WBC (Bld) 9.7 % Normal 0-10 [facility] Comment on above: Performed By: #### L 900.0098, L504.2610, L100.0100, L500.4050 ####[facility] [address] [place], [address] Neutrophils/100 WBC (Bld) 73.8 % High 47-70 [facility] Comment on above: Performed By: #### L 900.0098, L504.2610, L100.0100, L500.4050 ####[facility] [address] [place], [address] Nucleated RBC (Bld) [#/Vol] 0 10*3/uL Normal 0-5 [facility] Comment on above: Performed By: #### L 900.0098, L504.2610, L100.0100, L500.4050 ####[facility] [address] [place], [address] Platelet mean volume (Bld) [Entitic vol] 8.8 fL Normal 6.2-12.0 [facility] Comment on above: Performed By: #### L 900.0098, L504.2610, L100.0100, L500.4050 ####[facility] [address] [place], [address] Platelets (Bld) [#/Vol] 299 10*3/uL Normal 150-450 [facility] Comment on above: Performed By: #### L 900.0098, L504.2610, L100.0100, L500.4050 ####[facility] [address] [place], [address] RBC (Bld) [#/Vol] 4.28 10*6/uL Low 4.6-6.2 [facility] Comment on above: Performed By: #### L 900.0098, L504.2610, L100.0100, L500.4050 ####[facility] [address] [place], [address] RDW SD 40.6 fl Normal 35.1-43.9 [facility] Comment on above: Performed By: #### L 900.0098, L504.2610, L100.0100, L500.4050 ####[facility] [address] [place], [address] WBC (Bld) [#/Vol] 8.8 10*3/uL Normal 4.4-11.0 [facility] Comment on above: Performed By: #### L 900.0098, L504.2610, L100.0100, L500.4050 ####[facility] [address] [place], [address] Carbon dioxide, total [Moles /volume] in Central venous bloodOrdered By: Jerry Hightower on 10-24-2024 CO2 [Moles/Vol] 26.7 mmol/L 21.0-32.0 [facility] Carbon dioxide, total [Moles /volume] in Central venous bloodOrdered By: Papi Hernandez on 10-24-2024 CO2 [Moles/Vol] 26.7 mmol/L 21.0-32.0 [facility] Chloride assayOrdered By: Avinash teresa Frostrus on 10-24-2024 Chloride [Moles/Vol] 92 mmol/L Low 98-108 [facility] Chloride assayOrdered By: Santa Hernandez on 10-24-2024 Chloride [Moles/Vol] 94 mmol/L Low 98-108 [facility] Comprehensive Metabolic Prof ilon 10-24-2024 Albumin [Mass/Vol] 4.3 g/dL Normal 3.4-4.8 [facility] Comment on above: Performed By: #### L 500.4050, L501.2450, L100.0100, L503.6005 ####[facility] [address] [place], [address] Albumin/Globulin [Mass ratio] 1.4 {ratio} Normal 0.9-2.4 [facility] Comment on above: Performed By: #### L 500.4050, L501.2450, L100.0100, L503.6005 ####[facility] [address] [place], [address] ALK PHOS 103 U/L Normal 40-129 [facility] Comment on above: Performed By: #### L 500.4050, L501.2450, L100.0100, L503.6005 ####[facility] [address] [place], [address] ALT [Catalytic activity/Vol] 17 U/L Normal <=46 [facility] Comment on above: Performed By: #### L 500.4050, L501.2450, L100.0100, L503.6005 ####[facility] [address] [place], [address] AST [Catalytic activity/Vol] 27 U/L Normal <=37 [facility] Comment on above: Performed By: #### L 500.4050, L501.2450, L100.0100, L503.6005 ####[facility] [address] [place], [address] Bilirubin [Mass/Vol] 0.55 mg/dL Normal 0.00-1.30 [facility] Comment on above: Performed By: #### L 500.4050, L501.2450, L100.0100, L503.6005 ####[facility] [address] [place], [address] BUN/CRE 11.6 RATIO Normal 10-20 [facility] Comment on above: Performed By: #### L 500.4050, L501.2450, L100.0100, L503.6005 ####[facility] [address] [place], [address] Calcium [Mass/Vol] 9.2 mg/dL Normal 7.6-11.0 [facility] Comment on above: Performed By: #### L 500.4050, L501.2450, L100.0100, L503.6005 ####[facility] [address] [place], [address] Chloride [Moles/Vol] 92 mmol/L Low 98-108 [facility] Comment on above: Performed By: #### L 500.4050, L501.2450, L100.0100, L503.6005 ####[facility] [address] [place], [address] CO2 [Moles/Vol] 26.7 mmol/L Normal 21.0-32.0 [facility] Comment on above: Performed By: #### L 500.4050, L501.2450, L100.0100, L503.6005 ####[facility] [address] [place], [address] Creatinine [Mass/Vol] 0.94 mg/dL Normal 0.70-1.20 [facility] Comment on above: Performed By: #### L 500.4050, L501.2450, L100.0100, L503.6005 ####[facility] [address] [place], [address] ECRCL 56.56 ml/min Normal 50-250 [facility] Comment on above: Performed By: #### L 500.4050, L501.2450, L100.0100, L503.6005 ####[facility] [address] [place], [address] GAP 11 Normal 5-15 [facility] Comment on above: Performed By: #### L 500.4050, L501.2450, L100.0100, L503.6005 ####[facility] [address] [place], [address] GFR/1.73 sq M.predicted among non-blacks MDRD (S/P/Bld) [Vol rate/Area] 82 mL/min/{1.73_m2} Normal >60 [facility] Comment on above: Result Comment: mL/m in/1.73m2 CKD-EPI Creatinine Equation (2020) Performed By: #### L 500.4050, L501.2450, L100.0100, L503.6005 ####[facility] [address] [place], [address] Globulin (S) [Mass/Vol] 3.0 g/dL Normal 2.2-4.2 [facility] Comment on above: Performed By: #### L 500.4050, L501.2450, L100.0100, L503.6005 ####[facility] [address] [place], [address] Glucose [Mass/Vol] 105 mg/dL High 70-99 [facility] Comment on above: Performed By: #### L 500.4050, L501.2450, L100.0100, L503.6005 ####[facility] [address] [place], [address] Potassium [Moles/Vol] 3.8 mmol/L Normal 3.3-5.1 [facility] Comment on above: Performed By: #### L 500.4050, L501.2450, L100.0100, L503.6005 ####[facility] [address] [place], [address] Sodium [Moles/Vol] 130 mmol/L Low 133-145 [facility] Comment on above: Performed By: #### L 500.4050, L501.2450, L100.0100, L503.6005 ####[facility] [address] [place], [address] T PROT 7.3 g/dL Normal 5.9-8.4 [facility] Comment on above: Performed By: #### L 500.4050, L501.2450, L100.0100, L503.6005 ####[facility] [address] [place], [address] Urea nitrogen [Mass/Vol] 11 mg/dL Normal 4-19 [facility] Comment on above: Performed By: #### L 500.4050, L501.2450, L100.0100, L503.6005 ####[facility] [address] [place], [address] Albumin [Mass/Vol] 4.2 g/dL Normal 3.4-4.8 [facility] Comment on above: Performed By: #### L 900.0098, L504.2610, L100.0100, L500.4050 ####[facility] [address] [place], [address] Albumin/Globulin [Mass ratio] 1.4 {ratio} Normal 0.9-2.4 [facility] Comment on above: Performed By: #### L 900.0098, L504.2610, L100.0100, L500.4050 ####[facility] [address] [place], [address] ALK PHOS 100 U/L Normal 40-129 [facility] Comment on above: Performed By: #### L 900.0098, L504.2610, L100.0100, L500.4050 ####[facility] [address] [place], [address] ALT [Catalytic activity/Vol] 16 U/L Normal <=46 [facility] Comment on above: Performed By: #### L 900.0098, L504.2610, L100.0100, L500.4050 ####[facility] [address] [place], [address] AST [Catalytic activity/Vol] 27 U/L Normal <=37 [facility] Comment on above: Performed By: #### L 900.0098, L504.2610, L100.0100, L500.4050 ####[facility] [address] [place], [address] Bilirubin [Mass/Vol] 0.50 mg/dL Normal 0.00-1.30 [facility] Comment on above: Performed By: #### L 900.0098, L504.2610, L100.0100, L500.4050 ####[facility] [address] [place], [address] BUN/CRE 12.0 RATIO Normal 10-20 [facility] Comment on above: Performed By: #### L 900.0098, L504.2610, L100.0100, L500.4050 ####[facility] [address], [address] Calcium [Mass/Vol] 9.2 mg/dL Normal 7.6-11.0 [facility] Comment on above: Performed By: #### L 900.0098, L504.2610, L100.0100, L500.4050 ####[facility] [address] [place], [address] Chloride [Moles/Vol] 94 mmol/L Low 98-108 [facility] Comment on above: Performed By: #### L 900.0098, L504.2610, L100.0100, L500.4050 ####[facility] [address] [place], [address] CO2 [Moles/Vol] 26.7 mmol/L Normal 21.0-32.0 [facility] Comment on above: Performed By: #### L 900.0098, L504.2610, L100.0100, L500.4050 ####[facility] [address] [place], [address] Creatinine [Mass/Vol] 0.90 mg/dL Normal 0.70-1.20 [facility] Comment on above: Performed By: #### L 900.0098, L504.2610, L100.0100, L500.4050 ####[facility] [address], [address] ECRCL 61.20 ml/min Normal 50-250 [facility] Comment on above: Performed By: #### L 900.0098, L504.2610, L100.0100, L500.4050 ####[facility] [address], [address] GAP 9 Normal 5-15 [facility] Comment on above: Performed By: #### L 900.0098, L504.2610, L100.0100, L500.4050 ####[facility] [address], [address] GFR/1.73 sq M.predicted among non-blacks MDRD (S/P/Bld) [Vol rate/Area] 86 mL/min/{1.73_m2} Normal >60 [facility] Comment on above: Result Comment: mL/m in/1.73m2 CKD-EPI Creatinine Equation (2020) Performed By: #### L 900.0098, L504.2610, L100.0100, L500.4050 ####[facility] [address] [place], [address] Globulin (S) [Mass/Vol] 2.9 g/dL Normal 2.2-4.2 [facility] Comment on above: Performed By: #### L 900.0098, L504.2610, L100.0100, L500.4050 ####[facility] [address] [place], [address] Glucose [Mass/Vol] 107 mg/dL High 70-99 [facility] Comment on above: Performed By: #### L 900.0098, L504.2610, L100.0100, L500.4050 ####[facility] [address] [place], [address] Potassium [Moles/Vol] 4.2 mmol/L Normal 3.3-5.1 [facility] Comment on above: Performed By: #### L 900.0098, L504.2610, L100.0100, L500.4050 ####[facility] [address] [place], [address] Sodium [Moles/Vol] 131 mmol/L Low 133-145 [facility] Comment on above: Performed By: #### L 900.0098, L504.2610, L100.0100, L500.4050 ####[facility] [address] [place], [address] T PROT 7.0 g/dL Normal 5.9-8.4 [facility] Comment on above: Performed By: #### L 900.0098, L504.2610, L100.0100, L500.4050 ####[facility] [address] [place], [address] Urea nitrogen [Mass/Vol] 11 mg/dL Normal 4-19 [facility] Comment on above: Performed By: #### L 900.0098, L504.2610, L100.0100, L500.4050 ####[facility] [address] [place], [address] Emergency Department Summary on 10-24-2024 Emergency Department Summary Normal [facility] Eosinophil percentageOrdered By: Jerry Hightower on 10-24-2024 Eosinophils/100 WBC (Bld) 1.0 % 0-5 [facility] Eosinophil percentageOrdered By: Papi Hernandez on 10-24-2024 Eosinophils/100 WBC (Bld) 1.6 % 0-5 [facility] Epithelial cells.squamous LM Ql (Urine sed)Ordered By: Jerry Hightower on 10-24-2024 Epithelial cells.squamous LM.HPF (Urine sed) [#/Area] 0 /[HPF] 0-5 [facility] Erythrocyte distribution wid th ratioOrdered By: Jerry Hightower on 10-24-2024 Erythrocyte distribution width (RBC) [Ratio] 12.4 % 11.6-14.6 [facility] Erythrocyte distribution wid th ratioOrdered By: Papi Hernandez on 10-24-2024 Erythrocyte distribution width (RBC) [Ratio] 12.5 % 11.6-14.6 [facility] Erythrocyte distribution wid th standard deviationOrdered By: Jerry Hightower on 10-24-2024 Erythrocyte distribution width (RBC) [Entitic vol] 39.6 fL 35.1-43.9 [facility] Erythrocyte distribution width (RBC) [Ratio] 39.6 fl 35.1-43.9 [facility] Erythrocyte distribution wid th standard deviationOrdered By: Papi Hernandez on 10-24-2024 Erythrocyte distribution width (RBC) [Entitic vol] 40.6 fL 35.1-43.9 [facility] Erythrocyte distribution width (RBC) [Ratio] 40.6 fl 35.1-43.9 [facility] Estimation of creatinine dunia aranceOrdered By: Jerry Hightower on 10-24-2024 Estimated Creatinine Clearance Calc 56.56 ml/min 50-250 [facility] Estimation of creatinine dunia aranceOrdered By: Papi Hernandez on 10-24-2024 Estimated Creatinine Clearance Calc 61.20 ml/min 50-250 [facility] GFR/1.73 sq M.predicted gregg g non-blacks MDRD (S/P/Bld) [Vol rate/Area]Ordered By: Jerry Hightower on 10-24-2024 Estimated GFR (MDRD) Non-Af Amer 82 >60 [facility] Comment on above: mL/min/1.73m2 CKD-EP I Creatinine Equation (2020) GFR/1.73 sq M.predicted gregg g non-blacks MDRD (S/P/Bld) [Vol rate/Area]Ordered By: Papi Hernandez on 10-24-2024 Estimated GFR (MDRD) Non-Af Amer 86 >60 [facility] Comment on above: mL/min/1.73m2 CKD-EP I Creatinine Equation (2020) Glomerular filtration rate ( GFR) estimation/1.73 sq m using serum, plasma, or whole bOrdered By: Jerry Hightower on 10-24-2024 GFR/1.73 sq M.predicted among non-blacks MDRD (S/P/Bld) [Vol rate/Area] 82 mL/min/{1.73_m2} >60 [facility] Comment on above: mL/min/1.73m2 CKD-EP I Creatinine Equation (2020) Glomerular filtration rate ( GFR) estimation/1.73 sq m using serum, plasma, or whole bOrdered By: Papi Hernandez on 10-24-2024 GFR/1.73 sq M.predicted among non-blacks MDRD (S/P/Bld) [Vol rate/Area] 86 mL/min/{1.73_m2} >60 [facility] Comment on above: mL/min/1.73m2 CKD-EP I Creatinine Equation (2020) Glucose Ql (U)Ordered By: Avinash Hightower on 10-24-2024 Urine Glucose (UA) Normal mg/dl Normal [facility] Hematocrit Auto (Bld) [Volum e fraction]Ordered By: Jerry Hightower on 10-24-2024 Hematocrit (Bld) [Volume fraction] 37.0 % Low 40-54 [facility] Hematocrit Auto (Bld) [Volum e fraction]Ordered By: Papi Hernandez on 10-24-2024 Hematocrit (Bld) [Volume fraction] 38.0 % Low 40-54 [facility] Hemoglobin measurementOrdere d By: Jerry Hightower on 10-24-2024 Hemoglobin (Bld) [Mass/Vol] 13.1 g/dL 13.0-16.5 [facility] Hemoglobin measurementOrdere d By: Papi Hernandez on 10-24-2024 Hemoglobin (Bld) [Mass/Vol] 13.2 g/dL 13.0-16.5 [facility] Immature granulocytes/100 WB C Auto (Bld)Ordered By: Jerry Hightower on 10-24-2024 Immature granulocytes/100 WBC (Bld) 0.500 % 0.0-0.9 [facility] Comment on above: IG% - Immature Granu locytes (promyelocytes, myelocytes and metamyelocytes) > 1% indicates that a LEFT SHIFT is Present. Immature granulocytes/100 WB C Auto (Bld)Ordered By: Papi Hernandez on 10-24-2024 Immature granulocytes/100 WBC (Bld) 0.200 % 0.0-0.9 [facility] Comment on above: IG% - Immature Granu locytes (promyelocytes, myelocytes and metamyelocytes) > 1% indicates that a LEFT SHIFT is Present. Ketones Test strip Ql (U)Ord ered By: Jerry Hightower on 10-24-2024 Ketones Ql (U) Negative Negative [facility] LDHon 10-24-2024 LDH 105 U/L Normal 87-241 [facility] Comment on above: Order Comment: 1 Performed By: #### L 900.0098, L504.2610, L100.0100, L500.4050 ####[facility] [address] [place], [place], [id number] Laboratory - Chemistry and C hemistry - challengeOrdered By: Jerry Hightower on 10-24-2024 AST [Catalytic activity/Vol] 27 U/L <38 [facility] Laboratory - Chemistry and C hemistry - challengeOrdered By: Papi Hernandez on 10-24-2024 AST [Catalytic activity/Vol] 27 U/L <38 [facility] Lactate dehydrogenase (LDH) measurementOrdered By: Papi Hernandez on 10-24-2024 LDH [Catalytic activity/Vol] 105 U/L 87-241 [facility] Lactic Acidon 10-24-2024 Lactate [Moles/Vol] 1.1 mmol/L Normal 0.0-2.0 [facility] Comment on above: Order Comment: Y Performed By: #### L 500.4050, L501.2450, L100.0100, L503.6005 ####[facility] [address] [place], [address] Lactic acid measurementOrder ed By: Jerry Hightower on 10-24-2024 Lactate [Moles/Vol] 1.1 mmol/L 0.0-2.0 [facility] Lipaseon 10-24-2024 Lipase [Catalytic activity/Vol] 28 U/L Normal 13-75 [facility] Comment on above: Result Comment: Debi vieyra note:LIPASE revised reference range effective 22.New Lipase methodology. Expected to produce lower valuesthan the previous assay method.NEW Reference Range: 13 - 75 U/L Performed By: #### L 500.4050, L501.2450, L100.0100, L503.6005 ####[facility] [address] [place], [place], [address] Lipase measurementOrdered By : Jerry Hightower on 10-24-2024 Lipase [Catalytic activity/Vol] 28 U/L 13-75 [facility] Comment on above: Please note:LIPASE r evised reference range effective 22. New Lipase methodology. Expected to produce lower values than the previous assay method. NEW Reference Range: 13 - 75 U/L Lymphocytes Auto (Unsp spec) [#/Vol]Ordered By: Jerry Hightower on 10-24-2024 Lymphocytes (Bld) [#/Vol] 1.10 10*3/uL 0.83-4.51 [facility] Lymphocytes Auto (Unsp spec) [#/Vol]Ordered By: Papi Hernandez on 10-24-2024 Lymphocytes (Bld) [#/Vol] 1.26 10*3/uL 0.83-4.51 [facility] Lymphocytes/100 WBC Auto (Un sp spec)Ordered By: Jerry Hightower on 10-24-2024 Lymphocytes/100 WBC (Bld) 12.7 % Low 19-41 [facility] Lymphocytes/100 WBC Auto (Un sp spec)Ordered By: Papi Hernandez on 10-24-2024 Lymphocytes/100 WBC (Bld) 14.4 % Low 19-41 [facility] MCV (mean corpuscular volume ) determinationOrdered By: Jerry Hightower on 10-24-2024 MCV (RBC) [Entitic vol] 87.1 fL 80-94 [facility] MCV (mean corpuscular volume ) determinationOrdered By: Papi Hernandez on 10-24-2024 MCV (RBC) [Entitic vol] 88.8 fL 80-94 [facility] Mean corpuscular hemoglobin (MCH) determinationOrdered By: Jerry Hightower on 10-24-2024 MCH (RBC) [Entitic mass] 30.8 pg 27.0-32.0 [facility] Mean corpuscular hemoglobin (MCH) determinationOrdered By: Papi Hernandez on 10-24-2024 MCH (RBC) [Entitic mass] 30.8 pg 27.0-32.0 [facility] Mean corpuscular hemoglobin concentration (MCHC) determinationOrdered By: Jerry Hightower on 10-24-2024 MCHC (RBC) [Mass/Vol] 35.4 g/dL -36 [facility] Mean corpuscular hemoglobin concentration (MCHC) determinationOrdered By: Papi Hernandez on 10-24-2024 MCHC (RBC) [Mass/Vol] 34.7 g/dL -36 [facility] Mean platelet volume determi nationOrdered By: Jerry Hightower on 10-24-2024 Platelet mean volume (Bld) [Entitic vol] 9.0 fL 6.2-12.0 [facility] Mean platelet volume determi nationOrdered By: Papi Hernandez on 10-24-2024 Platelet mean volume (Bld) [Entitic vol] 8.8 fL 6.2-12.0 [facility] Microscopic analysis of urin e for red blood cells (RBC)Ordered By: Jerry Hightower on 10-24-2024 Microscopic analysis of urine for red blood cells (RBC) 0-5 SEEN /hpf 0-5 [facility] Urine RBC 0-5 SEEN /hpf 0-5 [facility] Miscellaneous procedureOrder ed By: Papi Hernandez on 10-24-2024 Miscellaneous Test Comment SEE SCANNED REPORT [facility] Monocyte percentageOrdered B y: Jerry Hightower on 10-24-2024 Monocytes/100 WBC (Bld) 8.4 % 0-10 [facility] Monocyte percentageOrdered B y: Papi Hernandez on 10-24-2024 Monocytes/100 WBC (Bld) 9.7 % 0-10 [facility] Mucus LM Ql (Urine sed)Order ed By: Jerry Hightower on 10-24-2024 Mucus Ql (Urine sed) 0 SEEN /hpf [facility] NATERAon 10-24-2024 NATURA SEE SCANNED REPORT Normal [facility] Comment on above: Performed By: #### L 900.0098, L504.2610, L100.0100, L500.4050 ####[facility] [address] [place], [address] Neutrophil percentageOrdered By: Jerry Hightower on 10-24-2024 Neutrophils/100 WBC (Bld) 77.1 % High 47-70 [facility] Neutrophil percentageOrdered By: Papi Hernandez on 10-24-2024 Neutrophils/100 WBC (Bld) 73.8 % High 47-70 [facility] Nitrite Test strip Ql (U)Ord ered By: Jerry Hightower on 10-24-2024 Nitrite Ql (U) Negative Negative [facility] No Panel InformationOrdered By: Jerry Hightower on 10-24-2024 27 U/L <38 [facility] No Panel InformationOrdered By: Papi Hernandez on 10-24-2024 27 U/L <38 [facility] Nucleated red blood cell per centageOrdered By: Jerry Hightower on 10-24-2024 Nucleated RBC/100 WBC (Bld) [Ratio] 0 % 0-5 [facility] Nucleated red blood cell per centageOrdered By: Papi Hernandez on 10-24-2024 Nucleated RBC/100 WBC (Bld) [Ratio] 0 % 0-5 [facility] Platelet countOrdered By: Avinash Hightower on 10-24-2024 Platelets (Bld) [#/Vol] 307 10*3/uL 150-450 [facility] Platelet countOrdered By: Santa Hernandez on 10-24-2024 Platelets (Bld) [#/Vol] 299 10*3/uL 150-450 [facility] Potassium (Unsp spec) [Mass/ Vol]Ordered By: Jerry Hightower on 10-24-2024 Potassium [Moles/Vol] 3.8 mmol/L 3.3-5.1 [facility] Potassium (Unsp spec) [Mass/ Vol]Ordered By: Papi Hernandez on 10-24-2024 Potassium [Moles/Vol] 4.2 mmol/L 3.3-5.1 [facility] Potassium measurement (mass/ volume)Ordered By: Jerry Hightower on 10-24-2024 Potassium (Unsp spec) [Mass/Vol] 3.8 mmol/L 3.3-5.1 [facility] Potassium measurement (mass/ volume)Ordered By: Papi Hernandez on 10-24-2024 Potassium (Unsp spec) [Mass/Vol] 4.2 mmol/L 3.3-5.1 [facility] Protein Test strip Ql (U)Ord ered By: Jerry Hightower on 10-24-2024 Protein Ql (U) 15 mg/dl High Negative [facility] RBC Auto (Bld) [#/Vol]Ordere d By: Jerry Hightower on 10-24-2024 RBC (Bld) [#/Vol] 4.25 10*6/uL Low 4.6-6.2 [facility] RBC Auto (Bld) [#/Vol]Ordere d By: Papi Hernandez on 10-24-2024 RBC (Bld) [#/Vol] 4.28 10*6/uL Low 4.6-6.2 [facility] Serum creatinine measurement (mass/volume)Ordered By: Jerry Hightower on 10-24-2024 Creatinine [Mass/Vol] 0.94 mg/dL 0.70-1.20 [facility] Serum creatinine measurement (mass/volume)Ordered By: Papi Hernandez on 10-24-2024 Creatinine [Mass/Vol] 0.90 mg/dL 0.70-1.20 [facility] Serum globulin measurementOr dered By: Jerry Hightower on 10-24-2024 Globulin (S) [Mass/Vol] 3.0 g/dL 2.2-4.2 [facility] Serum globulin measurementOr dered By: Papi Hernandez on 10-24-2024 Globulin (S) [Mass/Vol] 2.9 g/dL 2.2-4.2 [facility] Serum glucose measurement (m ass/volume)Ordered By: Jerry Hightower on 10-24-2024 Glucose [Mass/Vol] 105 mg/dL High 70-99 [facility] Serum glucose measurement (m ass/volume)Ordered By: Papi Hernandez on 10-24-2024 Glucose [Mass/Vol] 107 mg/dL High 70-99 [facility] Serum or plasma alanine carrion otransferase (ALT) measurementOrdered By: Jerry Hightower on 10-24-2024 ALT [Catalytic activity/Vol] 17 U/L <47 [facility] Serum or plasma alanine carrion otransferase (ALT) measurementOrdered By: Papi Hernandez on 10-24-2024 ALT [Catalytic activity/Vol] 16 U/L <47 [facility] Serum or plasma albumin shagufta urement (mass/volume)Ordered By: Jerry Hightower on 10-24-2024 Albumin [Mass/Vol] 4.3 g/dL 3.4-4.8 [facility] Serum or plasma albumin shagufta urement (mass/volume)Ordered By: Papi Hernandez on 10-24-2024 Albumin [Mass/Vol] 4.2 g/dL 3.4-4.8 [facility] Serum or plasma albumin/glob ulin mass ratioOrdered By: Jerry Hightower on 10-24-2024 Albumin/Globulin [Mass ratio] 1.4 {ratio} 0.9-2.4 [facility] Serum or plasma albumin/glob ulin mass ratioOrdered By: Papi Hernandez on 10-24-2024 Albumin/Globulin [Mass ratio] 1.4 {ratio} 0.9-2.4 [facility] Serum or plasma alkaline airam sphatase measurementOrdered By: Jerry Hightower on 10-24-2024 ALP [Catalytic activity/Vol] 103 U/L 40-129 [facility] Serum or plasma alkaline airam sphatase measurementOrdered By: Papi Hernandez on 10-24-2024 ALP [Catalytic activity/Vol] 100 U/L 40-129 [facility] Serum or plasma calcium shagufta urement (mass/volume)Ordered By: Jerry Hightower on 10-24-2024 Calcium [Mass/Vol] 9.2 mg/dL 7.6-11.0 [facility] Serum or plasma calcium shagufta urement (mass/volume)Ordered By: Papi Hernandez on 10-24-2024 Calcium [Mass/Vol] 9.2 mg/dL 7.6-11.0 [facility] Serum or plasma carcinoembry onic antigen measurement (mass/volume)Ordered By: Papi Hernandez on 10-24-2024 Carcinoembryonic Ag [Mass/Vol] 25.2 ng/mL High 0.0-4.7 [facility] Comment on above: Nonsmokers <3.9 Smok ers <5.6[employer] Electrochemiluminescence Immunoassay(ECLIA)Values obtained with different assay methods or kitscannot be used interchangeably. Results cannot beinterpreted as absolute evidence of the presence orabsence of malignant disease.Performed at: [facility] [address] [id number] Director: Jian Paredes PhD, Phone: [phone] Serum or plasma urea nitroge n measurement (mass/volume)Ordered By: Jerry Hightower on 10-24-2024 Urea nitrogen [Mass/Vol] 11 mg/dL 4-19 [facility] Serum or plasma urea nitroge n measurement (mass/volume)Ordered By: Papi Hernandez on 10-24-2024 Urea nitrogen [Mass/Vol] 11 mg/dL 4-19 [facility] Sodium levelOrdered By: Natalie Hightower on 10-24-2024 Sodium [Moles/Vol] 130 mmol/L Low 133-145 [facility] Sodium levelOrdered By: Stephan Hernandez on 10-24-2024 Sodium [Moles/Vol] 131 mmol/L Low 133-145 [facility] Squamous epithelial cells de tection in urine sediment by light microscopyOrdered By: Jerry Hightower on 10-24-2024 Epithelial cells.squamous LM Ql (Urine sed) 0-5 SEEN /hpf 0-5 [facility] Testicular with Arterial Tommy won 10-24-2024 Testicular with Arterial Flow Normal [facility] Total proteinOrdered By: Renay Hightower on 10-24-2024 Protein [Mass/Vol] 7.3 g/dL 5.9-8.4 [facility] Total proteinOrdered By: Thang Hernandez on 10-24-2024 Protein [Mass/Vol] 7.0 g/dL 5.9-8.4 [facility] Urinalysis, Completeon 10-24 EPI,SQUAMOUS 0-5 SEEN Normal 0-5 [facility] Comment on above: Order Comment: CLEAN CATCH Performed By: #### L 400.0001 ####[facility] [address] [place], [place], [id number] RBC 0-5 SEEN Normal 0-5 [facility] [facility] Comment on above: Order Comment: CLEAN CATCH Performed By: #### L 400.0001 ####[facility] [address] [place], [address] BACTERIA 0 SEEN Normal None Seen [facility] Comment on above: Order Comment: CLEAN CATCH Performed By: #### L 400.0001 ####[facility] [address] [place], [address] Mucus Ql (Urine sed) 0 SEEN Normal [facility] Comment on above: Order Comment: CLEAN CATCH Performed By: #### L 400.0001 ####[facility] [address] [place], [place], [id number] WBC 0 SEEN Normal 0-5 [facility] Comment on above: Order Comment: CLEAN CATCH Performed By: #### L 400.0001 ####[facility] [address] [place], [place], [id number] Urine blood detectionOrdered By: Jerry Hightower on 10-24-2024 Urine Occult Blood Negative Negative [facility] Urine clarityOrdered By: Renay Hightower on 10-24-2024 Clarity (U) Clear Clear [facility] Urine color determinationOrd ered By: Jerry Hightower on 10-24-2024 Color (U) Straw Yellow [facility] Urine glucose detectionOrder ed By: Jerry Hightower on 10-24-2024 Glucose Ql (U) Normal mg/dl Normal [facility] Urine leukocyte esterase det ection by dipstickOrdered By: Jerry Hightower on 10-24-2024 Leukocyte esterase Test strip Ql (U) Negative Negative [facility] Urine pHOrdered By: Jerry garza on 10-24-2024 pH (U) 8.0 [pH] 5.0 - 8.0 [facility] Urine sediment bacteria coun t by microscopy (number/high power field)Ordered By: Jerry Hightower on 10-24-2024 Bacteria LM.HPF (Urine sed) [#/Area] 0 /[HPF] None Seen [facility] Urine specific gravity measu rementOrdered By: Jerry Hightower on 10-24-2024 Specific gravity (U) [Rel density] 1.010 1.002-1.030 [facility] Urine urobilinogen measureme ntOrdered By: Jerry Hightower on 10-24-2024 Urobilinogen Ql (U) Normal mg/dl Normal [facility] Urobilinogen Ql (U)Ordered B y: Jerry Hightower on 10-24-2024 Urine Urobilinogen Normal mg/dl Normal [facility] White blood cell (WBC) count Ordered By: Jerry Hightower on 10-24-2024 WBC (Bld) [#/Vol] 8.7 10*3/uL 4.4-11.0 [facility] White blood cell (WBC) count Ordered By: Papi Mary on 10-24-2024 WBC (Bld) [#/Vol] 8.8 10*3/uL 4.4-11.0 [facility] White blood cell countOrdere d By: Jerry Hightower on 10-24-2024 Urine WBC 0 SEEN /hpf 0-5 [facility] White blood cell count 0 SEEN /hpf 0-[address] [facility] Amorphous sediment detection in urine sediment by light microscopyOrdered By: Malinda Webster on 10-17-2024 Amorphous sediment LM Ql (Urine sed) 3+ [facility] Anion gap in Serum or Plasma Ordered By: Malinda Webster on 10-17-2024 Anion gap [Moles/Vol] 9 mmol/L 5- [facility] BUN/creatinine ratioOrdered By: Malinda Webster on 10-17-2024 Urea nitrogen/Creatinine [Mass ratio] 15.2 mg/mg 10- [facility] Basic Metabolic Profile (BMP )on 10-17-2024 BUN/CRE 15.2 RATIO Normal - [facility] Comment on above: Performed By: #### L 500.2500, L400.0001 ####[facility] [address] [place], [address] Calcium [Mass/Vol] 9.7 mg/dL Normal 7.6-11.0 [facility] Comment on above: Performed By: #### L 500.2500, L400.0001 ####[facility] [address] [place], [address] Chloride [Moles/Vol] 93 mmol/L Low 98-108 [facility] Comment on above: Performed By: #### L 500.2500, L400.0001 ####[facility] [address] [place], [address] CO2 [Moles/Vol] 27.4 mmol/L Normal 21.0-32.0 [facility] Comment on above: Performed By: #### L 500.2500, L400.0001 ####[facility] [address] [place], [address] Creatinine [Mass/Vol] 1.06 mg/dL Normal 0.70-1.20 [facility] Comment on above: Performed By: #### L 500.2500, L400.0001 ####[facility] [address] [place], [address] GAP 9 Normal 5-15 [facility] Comment on above: Performed By: #### L 500.2500, L400.0001 ####[facility] [address] [place], [address] GFR/1.73 sq M.predicted among non-blacks MDRD (S/P/Bld) [Vol rate/Area] 71 mL/min/{1.73_m2} Normal >60 [facility] Comment on above: Result Comment: mL/m in/1.73m2 CKD-EPI Creatinine Equation (2020) Performed By: #### L 500.2500, L400.0001 ####[facility] [address] [place], [address] Glucose [Mass/Vol] 100 mg/dL High 70-99 [facility] Comment on above: Performed By: #### L 500.2500, L400.0001 ####[facility] [address] [place], [address] Potassium [Moles/Vol] 4.5 mmol/L Normal 3.3-5.1 [facility] Comment on above: Performed By: #### L 500.2500, L400.0001 ####[facility] [address] [place], [address] Sodium [Moles/Vol] 130 mmol/L Low 133-145 [facility] Comment on above: Performed By: #### L 500.2500, L400.0001 ####[facility] [address] [place], [place], [address] Urea nitrogen [Mass/Vol] 16 mg/dL Normal - [facility] Comment on above: Performed By: #### L 500.2500, L400.0001 ####[facility] [address] [place], [address] Bilirubin Test strip Ql (U)O rdered By: Malinda Webster on 10-17-2024 Bilirubin Ql (U) Negative Negative [facility] Carbon dioxide, total [Moles /volume] in Central venous bloodOrdered By: Malinda Webster on 10-17-2024 CO2 [Moles/Vol] 27.4 mmol/L 21.0-32.0 [facility] Cardiology Visit Reporton Cardiology Visit Report Normal [facility] Chloride assayOrdered By: Santa Webster on 10-17-2024 Chloride [Moles/Vol] 93 mmol/L Low 98-108 [facility] Epithelial cells.squamous LM Ql (Urine sed)Ordered By: Malinda Webster on 10-17-2024 Epithelial cells.squamous LM.HPF (Urine sed) [#/Area] 0 /[HPF] 0-5 [facility] GFR/1.73 sq M.predicted gregg g non-blacks MDRD (S/P/Bld) [Vol rate/Area]Ordered By: Malinda Webster on 10-17-2024 Estimated GFR (MDRD) Non-Af Amer 71 >60 [facility] Comment on above: mL/min/1.73m2 CKD-EP I Creatinine Equation (2020) Glomerular filtration rate ( GFR) estimation/1.73 sq m using serum, plasma, or whole bOrdered By: Malinda Webster on 10-17-2024 GFR/1.73 sq M.predicted among non-blacks MDRD (S/P/Bld) [Vol rate/Area] 71 mL/min/{1.73_m2} >60 [facility] Comment on above: mL/min/1.73m2 CKD-EP I Creatinine Equation (2020) Glucose Ql (U)Ordered By: Santa Webster on 10-17-2024 Urine Glucose (UA) Normal mg/dl Normal [facility] Ketones Test strip Ql (U)Ord ered By: Malinda Webster on 10-17-2024 Ketones Ql (U) Negative Negative [facility] Microscopic analysis of urin e for red blood cells (RBC)Ordered By: Malinda Webster on 10-17-2024 Microscopic analysis of urine for red blood cells (RBC) 0 SEEN /hpf 0-5 [facility] Urine RBC 0 SEEN /hpf 0-5 [facility] Mucus LM Ql (Urine sed)Order ed By: Malinda Webster on 10-17-2024 Mucus Ql (Urine sed) 0 SEEN /hpf [facility] Nitrite Test strip Ql (U)Ord ered By: Malinda Webster on 10-17-2024 Nitrite Ql (U) Negative Negative [facility] Potassium (Unsp spec) [Mass/ Vol]Ordered By: Malinda Webster on 10-17-2024 Potassium [Moles/Vol] 4.5 mmol/L 3.3-5.1 [facility] Potassium measurement (mass/ volume)Ordered By: Malinda Webster on 10-17-2024 Potassium (Unsp spec) [Mass/Vol] 4.5 mmol/L 3.3-5.1 [facility] Protein Test strip Ql (U)Ord ered By: Malinda Webster on 10-17-2024 Protein Ql (U) 30 mg/dl High Negative [facility] Serum creatinine measurement (mass/volume)Ordered By: Malinda Webster on 10-17-2024 Creatinine [Mass/Vol] 1.06 mg/dL 0.70-1.20 [facility] Serum glucose measurement (m ass/volume)Ordered By: Malinda Webster on 10-17-2024 Glucose [Mass/Vol] 100 mg/dL High 70-99 [facility] Serum or plasma calcium shagufta urement (mass/volume)Ordered By: Malinda Webster on 10-17-2024 Calcium [Mass/Vol] 9.7 mg/dL 7.6-11.0 [facility] Serum or plasma urea nitroge n measurement (mass/volume)Ordered By: Malinda Webster on 10-17-2024 Urea nitrogen [Mass/Vol] 16 mg/dL 4-19 [facility] Sodium levelOrdered By: Malinda Webster on 10-17-2024 Sodium [Moles/Vol] 130 mmol/L Low 133-145 [facility] Squamous epithelial cells de tection in urine sediment by light microscopyOrdered By: Malinda Webster on 10-17-2024 Epithelial cells.squamous LM Ql (Urine sed) 0 SEEN /hpf 0-5 [facility] Urinalysis, Completeon 10-17 AMORPHOUS 3+ Normal [facility] Comment on above: Order Comment: BOB CTOR TO SPECIFY Performed By: #### L 500.2500, L400.0001 ####[facility] [address] [place], [address] BACTERIA 2+ /hpf Normal None Seen [facility] Comment on above: Order Comment: BOB CTOR TO SPECIFY Performed By: #### L 500.2500, L400.0001 ####[facility] [address] [place], [address] RBC 0 SEEN Normal 0-5 [facility] Comment on above: Order Comment: BOB CTOR TO SPECIFY Performed By: #### L 500.2500, L400.0001 ####[facility] [address] [place], [address] EPI,SQUAMOUS 0 SEEN Normal 0-5 [facility] Comment on above: Order Comment: BOB CTOR TO SPECIFY Performed By: #### L 500.2500, L400.0001 ####[facility] [address] [place], [address] Mucus Ql (Urine sed) 0 SEEN Normal [facility] Comment on above: Order Comment: BOB CTOR TO SPECIFY Performed By: #### L 500.2500, L400.0001 ####[facility] [address] [place], [address] WBC 0 SEEN Normal 0-5 [facility] Comment on above: Order Comment: BOB CTOR TO SPECIFY Performed By: #### L 500.2500, L400.0001 ####[facility] [address] [place], [address] Urine blood detectionOrdered By: Malinda Webster on 10-17-2024 Urine Occult Blood Negative Negative [facility] Urine clarityOrdered By: Marcelo Webster on 10-17-2024 Clarity (U) Sl. Cloudy Clear [facility] Urine color determinationOrd ered By: Malinda Webster on 10-17-2024 Color (U) Yellow Yellow [facility] Urine glucose detectionOrder ed By: Malinda Webster on 10-17-2024 Glucose Ql (U) Normal mg/dl Normal [facility] Urine leukocyte esterase det ection by dipstickOrdered By: Malinda Webster on 10-17-2024 Leukocyte esterase Test strip Ql (U) Negative Negative [facility] Urine pHOrdered By: Malinda vallejo on 10-17-2024 pH (U) 8.0 [pH] 5.0 - 8.0 [facility] Urine sediment bacteria coun t by microscopy (number/high power field)Ordered By: Malinda Webster on 10-17-2024 Bacteria LM.HPF (Urine sed) [#/Area] 2 /[HPF] None Seen [facility] Urine specific gravity measu rementOrdered By: Malinda Webster on 10-17-2024 Specific gravity (U) [Rel density] 1.015 1.002-1.030 [facility] Urine urobilinogen measureme ntOrdered By: Malinda Webster on 10-17-2024 Urobilinogen Ql (U) Normal mg/dl Normal [facility] Urobilinogen Ql (U)Ordered B y: Malinda Webster on 10-17-2024 Urine Urobilinogen Normal mg/dl Normal [facility] White blood cell countOrdere d By: Malinda Webster on 10-17-2024 Urine WBC 0 SEEN /hpf 0-5 [facility] White blood cell count 0 SEEN /hpf 0-[address] [facility] Absolute lymphocyte countOrd ered By: Mariela Olson on 09-05-2024 Lymphocytes Auto (Unsp spec) [#/Vol] 1.41 10*3/uL 0.83-4.51 [facility] Absolute neutrophil countOrd ered By: Mariela Olson on 09-05-2024 Neutrophils (Bld) [#/Vol] 4.1 10*3/uL 2.0-7.7 [facility] Albumin to globulin ratioOrd ered By: Mariela Olson on 09-05-2024 Albumin/Globulin [Mass ratio] 1.0 {ratio} 0.9-2.4 [facility] Automated lymphocyte count a s percentage of total leukocytesOrdered By: Mariela Olson on 09-05-2024 Lymphocytes/100 WBC Auto (Unsp spec) 22.2 % 19-41 [facility] Basophil percentageOrdered B y: Mariela Cifuentesgar on 09-05-2024 Basophils/100 WBC (Bld) 0.3 % 0-1 [facility] Bilirubin, totalOrdered By: Mariela Shahram on 09-05-2024 Bilirubin [Mass/Vol] 0.80 mg/dL 0.20-1.00 [facility] Comment on above: For patients on eltr ombopag therapy, use of Dimension Upham TBIL is not recommended. Blood urea nitrogen (BUN)/cr eatinine ratioOrdered By: Marielabruce Olson on 09-05-2024 Urea nitrogen/Creatinine [Mass ratio] 13.0 mg/mg 10-20 [facility] CBC W/Diff, Automatedon Absolute Lymph 1.41 X10 3/uL Normal 0.83-4.51 [facility] Comment on above: Performed By: #### L 100.0100, L500.4050 ####[facility] [address] [facility] [place], [address] Absolute Neut 4.1 X10 3/uL Normal 2.0-7.7 [facility] Comment on above: Performed By: #### L 100.0100, L500.4050 ####[facility] [address] [place], [address] Basophils/100 WBC (Bld) 0.3 % Normal 0-1 [facility] Comment on above: Performed By: #### L 100.0100, L500.4050 ####[facility] [address] [place], [address] Eosinophils/100 WBC (Bld) 3.1 % Normal 0-5 [facility] Comment on above: Performed By: #### L 100.0100, L500.4050 ####[facility] [address] [place], [address] Erythrocyte distribution width (RBC) [Ratio] 13.3 % Normal 11.6-14.6 [facility] Comment on above: Performed By: #### L 100.0100, L500.4050 ####[facility] [address] [place], [address] Hematocrit (Bld) [Volume fraction] 39.9 % Low 40-54 [facility] Comment on above: Performed By: #### L 100.0100, L500.4050 ####[facility] [address] [place], [address] Hemoglobin (Bld) [Mass/Vol] 13.3 g/dL Normal 13.0-16.5 [facility] Comment on above: Performed By: #### L 100.0100, L500.4050 ####[facility] [address] [place], [address] IG% 0.200 Normal 0.0-0.9 [facility] Comment on above: Result Comment: IG% - Immature Granulocytes (promyelocytes, myelocytes andmetamyelocytes) > 1% indicates that a LEFT SHIFT is Present. Performed By: #### L 100.0100, L500.4050 ####[facility] [address] [place], [address] Lymphocytes/100 WBC (Bld) 22.2 % Normal 19-41 [facility] Comment on above: Performed By: #### L 100.0100, L500.4050 ####[facility] [address] [place], [address] MCH (RBC) [Entitic mass] 29.6 pg Normal 27.0-32.0 [facility] Comment on above: Performed By: #### L 100.0100, L500.4050 ####[facility] [address] [place], [address] MCHC (RBC) [Mass/Vol] 33.3 g/dL Normal 32-36 [facility] Comment on above: Performed By: #### L 100.0100, L500.4050 ####[facility] [address] [place], [address] MCV (RBC) [Entitic vol] 88.7 fL Normal 80-94 [facility] Comment on above: Performed By: #### L 100.0100, L500.4050 ####[facility] [address] [place], [address] Monocytes/100 WBC (Bld) 10.2 % High 0-10 [facility] Comment on above: Performed By: #### L 100.0100, L500.4050 ####[facility] [address] [place], [address] Neutrophils/100 WBC (Bld) 64.0 % Normal 47-70 [facility] Comment on above: Performed By: #### L 100.0100, L500.4050 ####[facility] [address] [place], [address] Nucleated RBC (Bld) [#/Vol] 0 10*3/uL Normal 0-5 [facility] Comment on above: Performed By: #### L 100.0100, L500.4050 ####[facility] [address] [place], [address] Platelet mean volume (Bld) [Entitic vol] 9.8 fL Normal 6.2-12.0 [facility] Comment on above: Performed By: #### L 100.0100, L500.4050 ####[facility] [address] [place], [address] Platelets (Bld) [#/Vol] 274 10*3/uL Normal 150-450 [facility] Comment on above: Performed By: #### L 100.0100, L500.4050 ####[facility] [address] [place], [address] RBC (Bld) [#/Vol] 4.50 10*6/uL Low 4.6-6.2 [facility] Comment on above: Performed By: #### L 100.0100, L500.4050 ####[facility] [address] [place], [address] RDW SD 43.2 fl Normal 35.1-43.9 [facility] Comment on above: Performed By: #### L 100.0100, L500.4050 ####[facility] [address] [place], [address] WBC (Bld) [#/Vol] 6.4 10*3/uL Normal 4.4-11.0 [facility] Comment on above: Performed By: #### L 100.0100, L500.4050 ####[facility] [address] [place], [address] Carbon dioxide measurementOr dered By: Mariela Olson on 09-05-2024 CO2 [Moles/Vol] 30.0 mmol/L 21.0-32.0 [facility] Chloride measurementOrdered By: Mariela Olson on 09-05-2024 Chloride [Moles/Vol] 98 mmol/L 98-107 [facility] Comprehensive Metabolic Prof ilon 09-05-2024 Albumin [Mass/Vol] 3.8 g/dL Normal 3.2-5.0 [facility] Comment on above: Performed By: #### L 100.0100, L500.4050 ####[facility] [address] [place], [address] Albumin/Globulin [Mass ratio] 1.0 {ratio} Normal 0.9-2.4 [facility] Comment on above: Performed By: #### L 100.0100, L500.4050 ####[facility] [address] [place], [address] ALK P 106 U/L Normal 45-117 [facility] Comment on above: Performed By: #### L 100.0100, L500.4050 ####[facility] [address] [place], [address] ALT [Catalytic activity/Vol] 30 U/L Normal 16-61 [facility] Comment on above: Performed By: #### L 100.0100, L500.4050 ####[facility] [address] [place], [address] AST [Catalytic activity/Vol] 27 U/L Normal 15-37 [facility] Comment on above: Performed By: #### L 100.0100, L500.4050 ####[facility] [address] [place], [address] Bilirubin [Mass/Vol] 0.80 mg/dL Normal 0.20-1.00 [facility] Comment on above: Result Comment: For patients on eltrombopag therapy, use of Dimension Upham TBIL is not recommended. Performed By: #### L 100.0100, L500.4050 ####[facility] [address] [place], [address] BUN/CRE 13.0 RATIO Normal 10-20 [facility] Comment on above: Performed By: #### L 100.0100, L500.4050 ####[facility] [address] [place], [address] CA,Total 9.8 mg/dL Normal 8.5-10.1 [facility] Comment on above: Performed By: #### L 100.0100, L500.4050 ####[facility] [address] [place], [address] Chloride [Moles/Vol] 98 mmol/L Normal 98-107 [facility] Comment on above: Performed By: #### L 100.0100, L500.4050 ####[facility] [address] [place], [address] CO2 [Moles/Vol] 30.0 mmol/L Normal 21.0-32.0 [facility] Comment on above: Performed By: #### L 100.0100, L500.4050 ####[facility] [address] [place], [address] Creatinine [Mass/Vol] 1.23 mg/dL Normal 0.70-1.30 [facility] Comment on above: Result Comment: The validity of the calculated GFR GFRAA in patients over70 years has not been determined. Clinical correlation isessential. Performed By: #### L 100.0100, L500.4050 ####[facility] [address] [place], [address] EST GFR - AA 73 mL/min Normal >60 [facility] Comment on above: Result Comment: Afri can Indian GFR Calc Performed By: #### L 100.0100, L500.4050 ####[facility] [address] [place], [address] GAP 7 Normal 5-15 [facility] Comment on above: Performed By: #### L 100.0100, L500.4050 ####[facility] [address] [place], [address] GFR/1.73 sq M.predicted among non-blacks MDRD (S/P/Bld) [Vol rate/Area] 60 mL/min/{1.73_m2} Normal >60 [facility] Comment on above: Result Comment: Non- GFR Calc Performed By: #### L 100.0100, L500.4050 ####[facility] [address] [place], [address] Globulin (S) [Mass/Vol] 3.7 g/dL Normal 2.2-4.2 [facility] Comment on above: Performed By: #### L 100.0100, L500.4050 ####[facility] [address] [place], [address] Glucose [Mass/Vol] 99 mg/dL Normal 74-106 [facility] Comment on above: Performed By: #### L 100.0100, L500.4050 ####[facility] [address] [place], [address] Potassium [Moles/Vol] 4.3 mmol/L Normal 3.5-5.1 [facility] Comment on above: Performed By: #### L 100.0100, L500.4050 ####[facility] [address] [place], [address] Sodium [Moles/Vol] 135 mmol/L Low 136-145 [facility] Comment on above: Performed By: #### L 100.0100, L500.4050 ####[facility] [address] [place], [address] T PROT 7.5 g/dL Normal 6.4-8.2 [facility] Comment on above: Performed By: #### L 100.0100, L500.4050 ####[facility] [address] [place], [address] Urea nitrogen [Mass/Vol] 16 mg/dL Normal 7-18 [facility] Comment on above: Performed By: #### L 100.0100, L500.4050 ####[facility] [address] [place], [address] Eosinophil percentageOrdered By: Mariela Olson on 09-05-2024 Eosinophils/100 WBC (Bld) 3.1 % 0-5 [facility] Erythrocyte distribution wid th ratioOrdered By: Mariela Olson on 09-05-2024 Erythrocyte distribution width (RBC) [Ratio] 13.3 % 11.6-14.6 [facility] Erythrocyte distribution wid th standard deviationOrdered By: Mariela Olson on 09-05-2024 Erythrocyte distribution width (RBC) [Entitic vol] 43.2 fL 35.1-43.9 [facility] Erythrocyte distribution width (RBC) [Ratio] 43.2 fl 35.1-43.9 [facility] Estimated glomerular filtrat ion rate (GFR) AmericanOrdered By: Mariela Olson on 09-05-2024 Estimated GFR (MDRD) Amer 73 mL/min >60 [facility] Comment on above: GFR Calc Glomerular filtration rate ( GFR) estimationOrdered By: Mariela Olson on 09-05-2024 Estimated GFR (MDRD) Non-Af Amer 60 mL/min >60 [facility] Comment on above: Non- GFR Calc GFR/1.73 sq M.predicted among non-blacks MDRD (S/P/Bld) [Vol rate/Area] 60 mL/min/{1.73_m2} >60 [facility] Comment on above: Non- GFR Calc Glucose measurementOrdered B y: Mariela Olson on 09-05-2024 Glucose [Mass/Vol] 99 mg/dL 74-106 [facility] Hematocrit Auto (Bld) [Volum e fraction]Ordered By: Mariela Olson on 09-05-2024 Hematocrit (Bld) [Volume fraction] 39.9 % Low 40-54 [facility] Hemoglobin measurementOrdere d By: Mariela Olson on 09-05-2024 Hemoglobin (Bld) [Mass/Vol] 13.3 g/dL 13.0-16.5 [facility] Immature granulocytes/100 WB C Auto (Bld)Ordered By: Mariela Olson on 09-05-2024 Immature granulocytes/100 WBC (Bld) 0.200 % 0.0-0.9 [facility] Comment on above: IG% - Immature Granu locytes (promyelocytes, myelocytes and metamyelocytes) > 1% indicates that a LEFT SHIFT is Present. Laboratory - Chemistry and C hemistry - challengeOrdered By: Mariela Olson on 09-05-2024 AST [Catalytic activity/Vol] 27 U/L 15-37 [facility] Lymphocytes Auto (Unsp spec) [#/Vol]Ordered By: Mariela Olson on 09-05-2024 Lymphocytes (Bld) [#/Vol] 1.41 10*3/uL 0.83-4.51 [facility] Lymphocytes/100 WBC Auto (Un sp spec)Ordered By: Mariela Olson on 09-05-2024 Lymphocytes/100 WBC (Bld) 22.2 % 19-41 [facility] MCV (mean corpuscular volume ) determinationOrdered By: Mariela Olson on 09-05-2024 MCV (RBC) [Entitic vol] 88.7 fL 80-94 [facility] Mean corpuscular hemoglobin (MCH) determinationOrdered By: Mariela Olson on 09-05-2024 MCH (RBC) [Entitic mass] 29.6 pg 27.0-32.0 [facility] Mean corpuscular hemoglobin concentration (MCHC) determinationOrdered By: Mariela Olson on 09-05-2024 MCHC (RBC) [Mass/Vol] 33.3 g/dL 32-36 [facility] Mean platelet volume determi nationOrdered By: Mariela Olson on 09-05-2024 Platelet mean volume (Bld) [Entitic vol] 9.8 fL 6.2-12.0 [facility] Monocyte percentageOrdered B y: Mariela Olson on 09-05-2024 Monocytes/100 WBC (Bld) 10.2 % High 0-10 [facility] Neutrophil percentageOrdered By: Mariela Olson on 09-05-2024 Neutrophils/100 WBC (Bld) 64.0 % 47-70 [facility] No Panel InformationOrdered By: Mariela Olson on 09-05-2024 27 U/L 15-37 [facility] Nucleated red blood cell per centageOrdered By: Mariela Olson on 09-05-2024 Nucleated RBC/100 WBC (Bld) [Ratio] 0 % 0-5 [facility] Platelet countOrdered By: Ra caio Olson on 09-05-2024 Platelets (Bld) [#/Vol] 274 10*3/uL 150-450 [facility] Potassium measurementOrdered By: Mariela Olson on 09-05-2024 Potassium [Moles/Vol] 4.3 mmol/L 3.5-5.1 [facility] RBC Auto (Bld) [#/Vol]Ordere d By: Mariela Olson on 09-05-2024 RBC (Bld) [#/Vol] 4.50 10*6/uL Low 4.6-6.2 [facility] Serum anion gap measurementO rdered By: Mariela Olson on 09-05-2024 Anion gap [Moles/Vol] 7 mmol/L 5-15 [facility] Serum globulin measurementOr dered By: Mariela Olson on 09-05-2024 Globulin (S) [Mass/Vol] 3.7 g/dL 2.2-4.2 [facility] Serum or plasma alanine carrion otransferase (ALT) measurementOrdered By: Mariela Olson on 09-05-2024 ALT [Catalytic activity/Vol] 30 U/L 16-61 [facility] Serum or plasma albumin shagufta urement (mass/volume)Ordered By: Mariela Olson on 09-05-2024 Albumin [Mass/Vol] 3.8 g/dL 3.2-5.0 [facility] Serum or plasma alkaline airam sphatase measurementOrdered By: Mariela Olson on 09-05-2024 ALP [Catalytic activity/Vol] 106 U/L 45-117 [facility] Serum or plasma calcium shagufta urement (mass/volume)Ordered By: Mariela Olson on 09-05-2024 Calcium [Mass/Vol] 9.8 mg/dL 8.5-10.1 [facility] Serum or plasma creatinine m easurement (mass/volume)Ordered By: Mariela Olson on 09-05-2024 Creatinine [Mass/Vol] 1.23 mg/dL 0.70-1.30 [facility] Comment on above: The validity of the calculated GFR & GFRAA in patients over 70 years has not been determined. Clinical correlation is essential. Serum or plasma urea nitroge n measurement (mass/volume)Ordered By: Mariela Olson on 09-05-2024 Urea nitrogen [Mass/Vol] 16 mg/dL 7-18 [facility] Sodium levelOrdered By: Ana M Olson on 09-05-2024 Sodium [Moles/Vol] 135 mmol/L Low 136-145 [facility] Total proteinOrdered By: Hortencia Olson on 09-05-2024 Protein [Mass/Vol] 7.5 g/dL 6.4-8.2 [facility] White blood cell (WBC) count Ordered By: Mariela Olson on 09-05-2024 WBC (Bld) [#/Vol] 6.4 10*3/uL 4.4-11.0 [facility] Oncology Visit Reporton Oncology Visit Report Normal [facility] Carcinoembryonic Antigenon 09-19-2023 CEA 6.6 ng/mL High 0.0-4.7 [facility] Comment on above: Result Comment: Nons mokers <3.9 Smokers <5.6[employer] Electrochemiluminescence Immunoassay(ECLIA)Values obtained with different assay methods or kitscannot be used interchangeably. Results cannot beinterpreted as absolute evidence of the presence orabsence of malignant disease.Performed at: [facility] [id number] Director: Jian Paredes PhD, Phone: [phone] Performed By: #### L 500.4050, L100.0100, L3100.2300 ####[facility] [address] [place], [place], [id number] CBC W/Diff, Automatedon 07-01 Absolute Lymph 1.90 X10 3/uL Normal 0.83-4.51 [facility] Comment on above: Performed By: #### L 500.4050, L100.0100, L3100.2300 ####[facility] [address] [place], [place], [id number] Absolute Neut 3.9 X10 3/uL Normal 2.0-7.7 [facility] Comment on above: Performed By: #### L 500.4050, L100.0100, L3100.2300 ####[facility] [address] [place], [address] Basophils/100 WBC (Bld) 0.3 % Normal 0-1 [facility] Comment on above: Performed By: #### L 500.4050, L100.0100, L3100.2300 ####[facility] [address] [place], [address] Eosinophils/100 WBC (Bld) 5.3 % High 0-5 [facility] Comment on above: Performed By: #### L 500.4050, L100.0100, L3100.2300 ####[facility] [address] [place], [address] Erythrocyte distribution width (RBC) [Ratio] 17.1 % High 11.6-14.6 [facility] Comment on above: Performed By: #### L 500.4050, L100.0100, L3100.2300 ####[facility] [address] [place], [address] Hematocrit (Bld) [Volume fraction] 36.4 % Low 40-54 [facility] Comment on above: Performed By: #### L 500.4050, L100.0100, L3100.2300 ####[facility] [address] [place], [address] Hemoglobin (Bld) [Mass/Vol] 11.8 g/dL Low 13.0-16.5 [facility] Comment on above: Performed By: #### L 500.4050, L100.0100, L3100.2300 ####[facility] [address] [place], [address] IG% 0.300 Normal 0.0-0.9 [facility] Comment on above: Result Comment: IG% - Immature Granulocytes (promyelocytes, myelocytes andmetamyelocytes) > 1% indicates that a LEFT SHIFT is Present. Performed By: #### L 500.4050, L100.0100, L3100.2300 ####[facility] [address] [place], [address] Lymphocytes/100 WBC (Bld) 27.4 % Normal 19-41 [facility] Comment on above: Performed By: #### L 500.4050, L100.0100, L3100.2300 ####[facility] [address] [place], [address] MCH (RBC) [Entitic mass] 28.1 pg Normal 27.0-32.0 [facility] Comment on above: Performed By: #### L 500.4050, L100.0100, L3100.2300 ####[facility] [address] [place], [address] MCHC (RBC) [Mass/Vol] 32.4 g/dL Normal 32-36 [facility] Comment on above: Performed By: #### L 500.4050, L100.0100, L3100.2300 ####[facility] [address] [place], [address] MCV (RBC) [Entitic vol] 86.7 fL Normal 80-94 [facility] Comment on above: Performed By: #### L 500.4050, L100.0100, L3100.2300 ####[facility] [address] [place], [address] Monocytes/100 WBC (Bld) 11.1 % High 0-10 [facility] Comment on above: Performed By: #### L 500.4050, L100.0100, L3100.2300 ####[facility] [address] [place], [address] Neutrophils/100 WBC (Bld) 55.6 % Normal 47-70 [facility] Comment on above: Performed By: #### L 500.4050, L100.0100, L3100.2300 ####[facility] [address] [place], [address] Nucleated RBC (Bld) [#/Vol] 0 10*3/uL Normal 0-5 [facility] Comment on above: Performed By: #### L 500.4050, L100.0100, L3100.2300 ####[facility] [address] [place], [address] Platelet mean volume (Bld) [Entitic vol] 9.4 fL Normal 6.2-12.0 [facility] Comment on above: Performed By: #### L 500.4050, L100.0100, L3100.2300 ####[facility] [address] [place], [address] Platelets (Bld) [#/Vol] 230 10*3/uL Normal 150-450 [facility] Comment on above: Performed By: #### L 500.4050, L100.0100, L3100.2300 ####[facility] [address] [place], [address] RBC (Bld) [#/Vol] 4.20 10*6/uL Low 4.6-6.2 [facility] Comment on above: Performed By: #### L 500.4050, L100.0100, L3100.2300 ####[facility] [address] [place], [address] RDW SD 54.4 fl High 35.1-43.9 [facility] Comment on above: Performed By: #### L 500.4050, L100.0100, L3100.2300 ####[facility] [address] [place], [address] WBC (Bld) [#/Vol] 6.9 10*3/uL Normal 4.4-11.0 [facility] Comment on above: Performed By: #### L 500.4050, L100.0100, L3100.2300 ####[facility] [address] [place], [address] Comprehensive Metabolic Prof ilon 07-18-2024 Albumin [Mass/Vol] 3.6 g/dL Normal 3.2-5.0 [facility] Comment on above: Performed By: #### L 500.4050, L100.0100, L3100.2300 ####[facility] [address] [place], [address] Albumin/Globulin [Mass ratio] 1.0 {ratio} Normal 0.9-2.4 [facility] Comment on above: Performed By: #### L 500.4050, L100.0100, L3100.2300 ####[facility] [address] [place], [address] ALK P 114 U/L Normal 45-117 [facility] Comment on above: Performed By: #### L 500.4050, L100.0100, L3100.2300 ####[facility] [address] [place], [address] ALT [Catalytic activity/Vol] 33 U/L Normal 16-61 [facility] Comment on above: Performed By: #### L 500.4050, L100.0100, L3100.2300 ####[facility] [address] [place], [address] AST [Catalytic activity/Vol] 25 U/L Normal 15-37 [facility] Comment on above: Performed By: #### L 500.4050, L100.0100, L3100.2300 ####[facility] [address] [place], [address] Bilirubin [Mass/Vol] 0.30 mg/dL Normal 0.20-1.00 [facility] Comment on above: Result Comment: For patients on eltrombopag therapy, use of Dimension Upham TBIL is not recommended. Performed By: #### L 500.4050, L100.0100, L3100.2300 ####[facility] [address] [place], [address] BUN/CRE 14.8 RATIO Normal 10-20 [facility] Comment on above: Performed By: #### L 500.4050, L100.0100, L3100.2300 ####[facility] [address] [place], [address] CA,Total 9.0 mg/dL Normal 8.5-10.1 [facility] Comment on above: Performed By: #### L 500.4050, L100.0100, L3100.2300 ####[facility] [address] [place], [address] Chloride [Moles/Vol] 104 mmol/L Normal 98-107 [facility] Comment on above: Performed By: #### L 500.4050, L100.0100, L3100.2300 ####[facility] [address] [place], [address] CO2 [Moles/Vol] 30.0 mmol/L Normal 21.0-32.0 [facility] Comment on above: Performed By: #### L 500.4050, L100.0100, L3100.2300 ####[facility] [address] [place], [address] Creatinine [Mass/Vol] 1.15 mg/dL Normal 0.70-1.30 [facility] Comment on above: Result Comment: The validity of the calculated GFR GFRAA in patients over70 years has not been determined. Clinical correlation isessential. Performed By: #### L 500.4050, L100.0100, L3100.2300 ####[facility] [address], [address] ECRCL 47.90 ml/min Normal [facility] Comment on above: Performed By: #### L 500.4050, L100.0100, L3100.2300 ####[facility] [address] [place], [address] EST GFR - AA 79 mL/min Normal >60 [facility] Comment on above: Result Comment: Afri can Indian GFR Calc Performed By: #### L 500.4050, L100.0100, L3100.2300 ####[facility] [address] [place], [address] GAP 2 Low 5-15 [facility] Comment on above: Performed By: #### L 500.4050, L100.0100, L3100.2300 ####[facility] [address] [place], [address] GFR/1.73 sq M.predicted among non-blacks MDRD (S/P/Bld) [Vol rate/Area] 65 mL/min/{1.73_m2} Normal >60 [facility] Comment on above: Result Comment: Non- GFR Calc Performed By: #### L 500.4050, L100.0100, L3100.2300 ####[facility] [address] [place], [address] Globulin (S) [Mass/Vol] 3.6 g/dL Normal 2.2-4.2 [facility] Comment on above: Performed By: #### L 500.4050, L100.0100, L3100.2300 ####[facility] [address] [place], [address] Glucose [Mass/Vol] 105 mg/dL Normal 74-106 [facility] Comment on above: Result Comment: Fast ing Glucose result from 100 to 125 mg/dLsuggests IMPAIRED HOMEOSTASIS per A.D.A. criteria. Performed By: #### L 500.4050, L100.0100, L3100.2300 ####[facility] [address] [place], [address] Potassium [Moles/Vol] 4.0 mmol/L Normal 3.5-5.1 [facility] Comment on above: Performed By: #### L 500.4050, L100.0100, L3100.2300 ####[facility] [address] [place], [address] Sodium [Moles/Vol] 136 mmol/L Normal 136-145 [facility] Comment on above: Performed By: #### L 500.4050, L100.0100, L3100.2300 ####[facility] [address] [place], [address] T PROT 7.2 g/dL Normal 6.4-8.2 [facility] Comment on above: Performed By: #### L 500.4050, L100.0100, L3100.2300 ####[facility] [address] [place], [address] Urea nitrogen [Mass/Vol] 17 mg/dL Normal -18 [facility] Comment on above: Performed By: #### L 500.4050, L100.0100, L3100.2300 ####[facility] [address] [place], [address] Estimated glomerular filtrat ion rate (GFR) AmericanOrdered By: Papi Hernandez on 07-18-2024 Estimated GFR (MDRD) Amer 79 mL/min >60 [facility] Comment on above: GFR Calc Oncology Visit Reporton 07-01 Oncology Visit Report Normal [facility] CBC W/Diff, Automatedon Absolute Lymph 1.59 X10 3/uL Normal 0.83-4.51 [facility] Comment on above: Performed By: #### L 300.3900, L100.0100 ####[facility] [address] [place], [address] Absolute Neut 3.4 X10 3/uL Normal 2.0-7.7 [facility] Comment on above: Performed By: #### L 300.3900, L100.0100 ####[facility] [address] [place], [address] Basophils/100 WBC (Bld) 0.5 % Normal 0-1 [facility] Comment on above: Performed By: #### L 300.3900, L100.0100 ####[facility] [address], [address] Eosinophils/100 WBC (Bld) 4.7 % Normal 0-5 [facility] Comment on above: Performed By: #### L 300.3900, L100.0100 ####[facility] [address] [place], [address] Erythrocyte distribution width (RBC) [Ratio] 17.5 % High 11.6-14.6 [facility] Comment on above: Performed By: #### L 300.3900, L100.0100 ####[facility] [address] [place], [address] Hematocrit (Bld) [Volume fraction] 36.9 % Low 40-54 [facility] Comment on above: Performed By: #### L 300.3900, L100.0100 ####[facility] [address] [place], [address] Hemoglobin (Bld) [Mass/Vol] 11.5 g/dL Low 13.0-16.5 [facility] Comment on above: Performed By: #### L 300.3900, L100.0100 ####[facility] [address] [place], [address] IG% 0.300 Normal 0.0-0.9 [facility] Comment on above: Result Comment: IG% - Immature Granulocytes (promyelocytes, myelocytes andmetamyelocytes) > 1% indicates that a LEFT SHIFT is Present. Performed By: #### L 300.3900, L100.0100 ####[facility] [address] [place], [address] Lymphocytes/100 WBC (Bld) 26.6 % Normal 19-41 [facility] Comment on above: Performed By: #### L 300.3900, L100.0100 ####[facility] [address] [place], [address] MCH (RBC) [Entitic mass] 27.1 pg Normal 27.0-32.0 [facility] Comment on above: Performed By: #### L 300.3900, L100.0100 ####[facility] [address] [place], [address] MCHC (RBC) [Mass/Vol] 31.2 g/dL Low 32-36 [facility] Comment on above: Performed By: #### L 300.3900, L100.0100 ####[facility] [address] [place], [address] MCV (RBC) [Entitic vol] 87.0 fL Normal 80-94 [facility] Comment on above: Performed By: #### L 300.3900, L100.0100 ####[facility] [address] [place], [address] Monocytes/100 WBC (Bld) 10.5 % High 0-10 [facility] Comment on above: Performed By: #### L 300.3900, L100.0100 ####[facility] [address] [place], [address] Neutrophils/100 WBC (Bld) 57.4 % Normal 47-70 [facility] Comment on above: Performed By: #### L 300.3900, L100.0100 ####[facility] [address], [address] Nucleated RBC (Bld) [#/Vol] 0 10*3/uL Normal 0-5 [facility] Comment on above: Performed By: #### L 300.3900, L100.0100 ####[facility] [address] [place], [address] Platelet mean volume (Bld) [Entitic vol] 9.2 fL Normal 6.2-12.0 [facility] Comment on above: Performed By: #### L 300.3900, L100.0100 ####[facility] [address] [place], [address] Platelets (Bld) [#/Vol] 316 10*3/uL Normal 150-450 [facility] Comment on above: Performed By: #### L 300.3900, L100.0100 ####[facility] [address] [place], [address] RBC (Bld) [#/Vol] 4.24 10*6/uL Low 4.6-6.2 [facility] Comment on above: Performed By: #### L 300.3900, L100.0100 ####[facility] [address] [place], [address] RDW SD 56.3 fl High 35.1-43.9 [facility] Comment on above: Performed By: #### L 300.3900, L100.0100 ####[facility] [address] [place], [address] WBC (Bld) [#/Vol] 6.0 10*3/uL Normal 4.4-11.0 [facility] Comment on above: Performed By: #### L 300.3900, L100.0100 ####[facility] [address] [place], [address] International normalized rat io (INR) calculationOrdered By: Sunny Mancia on 07-04-2024 INR Coag (Bld) [Relative time] 1.0 {INR} [facility] NATERAon 07-04-2024 NATURA SEE SCANNED REPORT Normal [facility] Comment on above: Performed By: #### L 900.0098 ####[facility] [address] [place], [address] Oncology Visit Reporton Oncology Visit Report Normal [facility] Prothrombin Time w/INRon INR Coag (PPP) [Relative time] 1.0 {INR} Normal [facility] Comment on above: Performed By: #### L 300.3900, L100.0100 ####[facility] [address] [place], [address] PT Coag (PPP) [Time] 12.8 s Normal 11.7-14.9 [facility] Comment on above: Performed By: #### L 300.3900, L100.0100 ####[facility] [address] [place], [address] Prothrombin timeOrdered By: Sunny Mancia on 07-04-2024 PT Coag (PPP) [Time] 12.8 s 11.7-14.9 [facility] Bronchoscopy Reporton 2023 Bronchoscopy Report Normal [facility] CK7 (initial)on 06-22-2024 CK7 (initial) [facility] Comment on above: Performed By: #### P CK7 ####[facility] [address] [place], [address] EGD Reporton 06-22-2024 EGD Report Normal [facility] H Pylori (initial)on 024 H Pylori (initial) [facility] Comment on above: Performed By: #### P H.PYLORI ####[facility] [address] [place], [address] MR/POSTOP.ANEon 06-22-2024 MR/POSTOP.ANE Normal [facility] MR/LMRYQNKV6et 06-22-2024 MR/POSTOPAN2 Normal [facility] Special Stain Group Ion 11-2 Special Stain Group I Normal [facility] Comment on above: Performed By: #### P SSI ####[facility] [address] [place], [address] Surgery Specimen Level Oscar 06-22-2024 Surgery Specimen Level IV Normal [facility] Comment on above: Performed By: #### P SUIV ####[facility] [address] [place], [address] CBC W/Diff, Automatedon 06-01 Absolute Lymph 1.50 X10 3/uL Normal 0.83-4.51 [facility] Comment on above: Order Comment: Comme nts: Post-operatively Performed By: #### L 100.0100 ####[facility] [address] [place], [address] Absolute Neut 5.3 X10 3/uL Normal 2.0-7.7 [facility] Comment on above: Order Comment: Comme nts: Post-operatively Performed By: #### L 100.0100 ####[facility] [address] [place], [address] Basophils/100 WBC (Bld) 0.3 % Normal 0-1 [facility] Comment on above: Order Comment: Comme nts: Post-operatively Performed By: #### L 100.0100 ####[facility] [address] [place], [address] Eosinophils/100 WBC (Bld) 1.8 % Normal 0-5 [facility] Comment on above: Order Comment: Comme nts: Post-operatively Performed By: #### L 100.0100 ####[facility] [address] [place], [address] Erythrocyte distribution width (RBC) [Ratio] 18.0 % High 11.6-14.6 [facility] Comment on above: Order Comment: Comme nts: Post-operatively Performed By: #### L 100.0100 ####[facility] [address] [place], [address] Hematocrit (Bld) [Volume fraction] 36.1 % Low 40-54 [facility] Comment on above: Order Comment: Comme nts: Post-operatively Performed By: #### L 100.0100 ####[facility] [address] [place], [address] Hemoglobin (Bld) [Mass/Vol] 11.3 g/dL Low 13.0-16.5 [facility] Comment on above: Order Comment: Comme nts: Post-operatively Performed By: #### L 100.0100 ####[facility] [address] [place], [address] IG% 0.400 Normal 0.0-0.9 [facility] Comment on above: Order Comment: Comme nts: Post-operatively Result Comment: IG% - Immature Granulocytes (promyelocytes, myelocytes andmetamyelocytes) > 1% indicates that a LEFT SHIFT is Present. Performed By: #### L 100.0100 ####[facility] [address] [place], [address] Lymphocytes/100 WBC (Bld) 19.5 % Normal 19-41 [facility] Comment on above: Order Comment: Comme nts: Post-operatively Performed By: #### L 100.0100 ####[facility] [address] [place], [address] MCH (RBC) [Entitic mass] 27.0 pg Normal 27.0-32.0 [facility] Comment on above: Order Comment: Comme nts: Post-operatively Performed By: #### L 100.0100 ####[facility] [address] [place], [address] MCHC (RBC) [Mass/Vol] 31.3 g/dL Low 32-36 [facility] Comment on above: Order Comment: Comme nts: Post-operatively Performed By: #### L 100.0100 ####[facility] [address] [place], [address] MCV (RBC) [Entitic vol] 86.4 fL Normal 80-94 [facility] Comment on above: Order Comment: Comme nts: Post-operatively Performed By: #### L 100.0100 ####[facility] [address] [place], [address] Monocytes/100 WBC (Bld) 9.2 % Normal 0-10 [facility] Comment on above: Order Comment: Comme nts: Post-operatively Performed By: #### L 100.0100 ####[facility] [address] [place], [address] Neutrophils/100 WBC (Bld) 68.8 % Normal 47-70 [facility] Comment on above: Order Comment: Comme nts: Post-operatively Performed By: #### L 100.0100 ####[facility] [address] [place], [address] Nucleated RBC (Bld) [#/Vol] 0 10*3/uL Normal 0-5 [facility] Comment on above: Order Comment: Comme nts: Post-operatively Performed By: #### L 100.0100 ####[facility] [address] [place], [address] Platelet mean volume (Bld) [Entitic vol] 9.3 fL Normal 6.2-12.0 [facility] Comment on above: Order Comment: Comme nts: Post-operatively Performed By: #### L 100.0100 ####[facility] [address] [place], [address] Platelets (Bld) [#/Vol] 294 10*3/uL Normal 150-450 [facility] Comment on above: Order Comment: Comme nts: Post-operatively Performed By: #### L 100.0100 ####[facility] [address] [place], [address] RBC (Bld) [#/Vol] 4.18 10*6/uL Low 4.6-6.2 [facility] Comment on above: Order Comment: Comme nts: Post-operatively Performed By: #### L 100.0100 ####[facility] [address] [place], [address] RDW SD 57.7 fl High 35.1-43.9 [facility] Comment on above: Order Comment: Comme nts: Post-operatively Performed By: #### L 100.0100 ####[facility] [address] [place], [address] WBC (Bld) [#/Vol] 7.7 10*3/uL Normal 4.4-11.0 [facility] Comment on above: Order Comment: Comme nts: Post-operatively Performed By: #### L 100.0100 ####[facility] [address] [place], [address] Pulmonary Visit Reporton Pulmonary Visit Report Normal [facility] Basic Metabolic Profile (BMP )on 06-10-2024 BUN/CRE 17.0 RATIO Normal 10-20 [facility] Comment on above: Performed By: #### L 500.2500, L100.0100 ####[facility] [address] [place], [address] CA,Total 8.7 mg/dL Normal 8.5-10.1 [facility] Comment on above: Performed By: #### L 500.2500, L100.0100 ####[facility] [address] [place], [address] Chloride [Moles/Vol] 108 mmol/L High 98-107 [facility] Comment on above: Performed By: #### L 500.2500, L100.0100 ####[facility] [address] [place], [address] CO2 [Moles/Vol] 26.0 mmol/L Normal 21.0-32.0 [facility] Comment on above: Performed By: #### L 500.2500, L100.0100 ####[facility] [address] [place], [address] Creatinine [Mass/Vol] 1.12 mg/dL Normal 0.70-1.30 [facility] Comment on above: Result Comment: The validity of the calculated GFR GFRAA in patients over70 years has not been determined. Clinical correlation isessential. Performed By: #### L 500.2500, L100.0100 ####[facility] [address] [place], [address] ECRCL 49.18 ml/min Normal [facility] Comment on above: Performed By: #### L 500.2500, L100.0100 ####[facility] [address] [place], [address] EST GFR - AA 81 mL/min Normal >60 [facility] Comment on above: Result Comment: Afri can Indian GFR Calc Performed By: #### L 500.2500, L100.0100 ####[facility] [address] [place], [address] GAP 4 Low 5-15 [facility] Comment on above: Performed By: #### L 500.2500, L100.0100 ####[facility] [address] [place], [address] GFR/1.73 sq M.predicted among non-blacks MDRD (S/P/Bld) [Vol rate/Area] 67 mL/min/{1.73_m2} Normal >60 [facility] Comment on above: Result Comment: Non- GFR Calc Performed By: #### L 500.2500, L100.0100 ####[facility] [address] [place], [address] Glucose [Mass/Vol] 100 mg/dL Normal 74-106 [facility] Comment on above: Result Comment: Fast ing Glucose result from 100 to 125 mg/dLsuggests IMPAIRED HOMEOSTASIS per A.D.A. criteria. Performed By: #### L 500.2500, L100.0100 ####[facility] [address] [place], [address] Potassium [Moles/Vol] 4.2 mmol/L Normal 3.5-5.1 [facility] Comment on above: Performed By: #### L 500.2500, L100.0100 ####[facility] [address] [place], [address] Sodium [Moles/Vol] 138 mmol/L Normal 136-145 [facility] Comment on above: Performed By: #### L 500.2500, L100.0100 ####[facility] [address] [place], [address] Urea nitrogen [Mass/Vol] 19 mg/dL High 7-18 [facility] Comment on above: Performed By: #### L 500.2500, L100.0100 ####[facility] [address] [place], [address] CBC W/Diff, Automatedon 11- 0-2023 Absolute Lymph 1.57 X10 3/uL Normal 0.83-4.51 [facility] Comment on above: Performed By: #### L 500.2500, L100.0100 ####[facility] [address] [place], [address] Absolute Neut 3.5 X10 3/uL Normal 2.0-7.7 [facility] Comment on above: Performed By: #### L 500.2500, L100.0100 ####[facility] [address], [address] Basophils/100 WBC (Bld) 0.2 % Normal 0-1 [facility] Comment on above: Performed By: #### L 500.2500, L100.0100 ####[facility] [address] [place], [address] Eosinophils/100 WBC (Bld) 3.9 % Normal 0-5 [facility] Comment on above: Performed By: #### L 500.2500, L100.0100 ####[facility] [address] [place], [address] Erythrocyte distribution width (RBC) [Ratio] 18.6 % High 11.6-14.6 [facility] Comment on above: Performed By: #### L 500.2500, L100.0100 ####[facility] [address] [place], [address] Hematocrit (Bld) [Volume fraction] 32.1 % Low 40-54 [facility] Comment on above: Performed By: #### L 500.2500, L100.0100 ####[facility] [address] [place], [address] Hemoglobin (Bld) [Mass/Vol] 10.2 g/dL Low 13.0-16.5 [facility] Comment on above: Performed By: #### L 500.2500, L100.0100 ####[facility] [address] [place], [address] IG% 0.300 Normal 0.0-0.9 [facility] Comment on above: Result Comment: IG% - Immature Granulocytes (promyelocytes, myelocytes andmetamyelocytes) > 1% indicates that a LEFT SHIFT is Present. Performed By: #### L 500.2500, L100.0100 ####[facility] [address] [place], [address] Lymphocytes/100 WBC (Bld) 25.7 % Normal 19-41 [facility] Comment on above: Performed By: #### L 500.2500, L100.0100 ####[facility] [address] [place], [address] MCH (RBC) [Entitic mass] 27.1 pg Normal 27.0-32.0 [facility] Comment on above: Performed By: #### L 500.2500, L100.0100 ####[facility] [address] [place], [address] MCHC (RBC) [Mass/Vol] 31.8 g/dL Low 32-36 [facility] Comment on above: Performed By: #### L 500.2500, L100.0100 ####[facility] [address] [place], [address] MCV (RBC) [Entitic vol] 85.4 fL Normal 80-94 [facility] Comment on above: Performed By: #### L 500.2500, L100.0100 ####[facility] [address] [place], [address] Monocytes/100 WBC (Bld) 12.4 % High 0-10 [facility] Comment on above: Performed By: #### L 500.2500, L100.0100 ####[facility] [address] [place], [address] Neutrophils/100 WBC (Bld) 57.5 % Normal 47-70 [facility] Comment on above: Performed By: #### L 500.2500, L100.0100 ####[facility] [address] [place], [address] Nucleated RBC (Bld) [#/Vol] 0 10*3/uL Normal 0-5 [facility] Comment on above: Performed By: #### L 500.2500, L100.0100 ####[facility] [address] [place], [address] Platelet mean volume (Bld) [Entitic vol] 9.6 fL Normal 6.2-12.0 [facility] Comment on above: Performed By: #### L 500.2500, L100.0100 ####[facility] [address] [place], [address] Platelets (Bld) [#/Vol] 275 10*3/uL Normal 150-450 [facility] Comment on above: Performed By: #### L 500.2500, L100.0100 ####[facility] [address] [place], [address] RBC (Bld) [#/Vol] 3.76 10*6/uL Low 4.6-6.2 [facility] Comment on above: Performed By: #### L 500.2500, L100.0100 ####[facility] [address] [place], [address] RDW SD 58.0 fl High 35.1-43.9 [facility] Comment on above: Performed By: #### L 500.2500, L100.0100 ####[facility] [address] [place], [address] WBC (Bld) [#/Vol] 6.1 10*3/uL Normal 4.4-11.0 [facility] Comment on above: Performed By: #### L 500.2500, L100.0100 ####[facility] [address] [place], [address] Discharge Instructionon 06-01 Discharge Instruction Normal [facility] BRCon 06-09-2024 RC Normal Neg [facility] Comment on above: Result Comment: [id number] OP RC TRANSFUSED 06/09/24 1143 Performed By: #### B TS, BR ####[facility] [address] [place], [address] CBC W/Diff, Automatedon -0 Absolute Lymph 1.40 X10 3/uL Normal 0.83-4.51 [facility] Comment on above: Performed By: #### L 100.0100, L500.4050, L501.5200 ####[facility] [address] [place], [address] Absolute Neut 4.2 X10 3/uL Normal 2.0-7.7 [facility] Comment on above: Performed By: #### L 100.0100, L500.4050, L501.5200 ####[facility] [address] [place], [address] Basophils/100 WBC (Bld) 0.3 % Normal 0-1 [facility] Comment on above: Performed By: #### L 100.0100, L500.4050, L501.5200 ####[facility] [address] [place], [address] Eosinophils/100 WBC (Bld) 3.2 % Normal 0-5 [facility] Comment on above: Performed By: #### L 100.0100, L500.4050, L501.5200 ####[facility] [address] [place], [address] Erythrocyte distribution width (RBC) [Ratio] 19.2 % High 11.6-14.6 [facility] Comment on above: Performed By: #### L 100.0100, L500.4050, L501.5200 ####[facility] [address] [place], [address] Hematocrit (Bld) [Volume fraction] 26.4 % Low 40-54 [facility] Comment on above: Performed By: #### L 100.0100, L500.4050, L501.5200 ####[facility] [address], [address] Hemoglobin (Bld) [Mass/Vol] 8.2 g/dL Low 13.0-16.5 [facility] Comment on above: Performed By: #### L 100.0100, L500.4050, L501.5200 ####[facility] [address] [place], [address] IG% 0.300 Normal 0.0-0.9 [facility] Comment on above: Result Comment: IG% - Immature Granulocytes (promyelocytes, myelocytes andmetamyelocytes) > 1% indicates that a LEFT SHIFT is Present. Performed By: #### L 100.0100, L500.4050, L501.5200 ####[facility] [address] [place], [address] Lymphocytes/100 WBC (Bld) 21.6 % Normal 19-41 [facility] Comment on above: Performed By: #### L 100.0100, L500.4050, L501.5200 ####[facility] [address] [place], [address] MCH (RBC) [Entitic mass] 26.8 pg Low 27.0-32.0 [facility] Comment on above: Performed By: #### L 100.0100, L500.4050, L501.5200 ####[facility] [address] [place], [address] MCHC (RBC) [Mass/Vol] 31.1 g/dL Low 32-36 [facility] Comment on above: Performed By: #### L 100.0100, L500.4050, L501.5200 ####[facility] [address] [place], [address] MCV (RBC) [Entitic vol] 86.3 fL Normal 80-94 [facility] Comment on above: Performed By: #### L 100.0100, L500.4050, L501.5200 ####[facility] [address] [place], [address] Monocytes/100 WBC (Bld) 10.2 % High 0-10 [facility] Comment on above: Performed By: #### L 100.0100, L500.4050, L501.5200 ####[facility] [address] [place], [address] Neutrophils/100 WBC (Bld) 64.4 % Normal 47-70 [facility] Comment on above: Performed By: #### L 100.0100, L500.4050, L501.5200 ####[facility] [address] [place], [address] Nucleated RBC (Bld) [#/Vol] 0 10*3/uL Normal 0-5 [facility] Comment on above: Performed By: #### L 100.0100, L500.4050, L501.5200 ####[facility] [address] [place], [address] Platelet mean volume (Bld) [Entitic vol] 9.8 fL Normal 6.2-12.0 [facility] Comment on above: Performed By: #### L 100.0100, L500.4050, L501.5200 ####[facility] [address] [place], [address] Platelets (Bld) [#/Vol] 262 10*3/uL Normal 150-450 [facility] Comment on above: Performed By: #### L 100.0100, L500.4050, L501.5200 ####[facility] [address] [place], [address] RBC (Bld) [#/Vol] 3.06 10*6/uL Low 4.6-6.2 [facility] Comment on above: Performed By: #### L 100.0100, L500.4050, L501.5200 ####[facility] [address] [place], [address] RDW SD 59.4 fl High 35.1-43.9 [facility] Comment on above: Performed By: #### L 100.0100, L500.4050, L501.5200 ####[facility] [address] [place], [address] WBC (Bld) [#/Vol] 6.5 10*3/uL Normal 4.4-11.0 [facility] Comment on above: Performed By: #### L 100.0100, L500.4050, L501.5200 ####[facility] [address] [place], [address] Comprehensive Metabolic Prof ilon 06-09-2024 Albumin [Mass/Vol] 2.9 g/dL Low 3.2-5.0 [facility] Comment on above: Performed By: #### L 100.0100, L500.4050, L501.5200 ####[facility] [address] [place], [address] Albumin/Globulin [Mass ratio] 1.1 {ratio} Normal 0.9-2.4 [facility] Comment on above: Performed By: #### L 100.0100, L500.4050, L501.5200 ####[facility] [address] [place], [address] ALK P 76 U/L Normal 45-117 [facility] Comment on above: Performed By: #### L 100.0100, L500.4050, L501.5200 ####[facility] [address] [place], [address] ALT [Catalytic activity/Vol] 12 U/L Low 16-61 [facility] Comment on above: Performed By: #### L 100.0100, L500.4050, L501.5200 ####[facility] [address] [place] [facility] [place], [address] AST [Catalytic activity/Vol] 14 U/L Low 15-37 [facility] Comment on above: Performed By: #### L 100.0100, L500.4050, L501.5200 ####[facility] [address] [place], [address] Bilirubin [Mass/Vol] 0.60 mg/dL Normal 0.20-1.00 [facility] Comment on above: Result Comment: For patients on eltrombopag therapy, use of Dimension Upham TBIL is not recommended. Performed By: #### L 100.0100, L500.4050, L501.5200 ####[facility] [address] [place], [address] BUN/CRE 19.6 RATIO Normal 10-20 [facility] Comment on above: Performed By: #### L 100.0100, L500.4050, L501.5200 ####[facility] [address] [place], [address] CA,Total 7.9 mg/dL Low 8.5-10.1 [facility] Comment on above: Performed By: #### L 100.0100, L500.4050, L501.5200 ####[facility] [address] [place], [address] Chloride [Moles/Vol] 105 mmol/L Normal 98-107 [facility] Comment on above: Performed By: #### L 100.0100, L500.4050, L501.5200 ####[facility] [address] [place], [address] CO2 [Moles/Vol] 24.0 mmol/L Normal 21.0-32.0 [facility] Comment on above: Performed By: #### L 100.0100, L500.4050, L501.5200 ####[facility] [address] [place], [address] Creatinine [Mass/Vol] 1.12 mg/dL Normal 0.70-1.30 [facility] Comment on above: Result Comment: The validity of the calculated GFR GFRAA in patients over70 years has not been determined. Clinical correlation isessential. Performed By: #### L 100.0100, L500.4050, L501.5200 ####[facility] [address] [place], [address] ECRCL 49.18 ml/min Normal [facility] Comment on above: Performed By: #### L 100.0100, L500.4050, L501.5200 ####[facility] [address] [place], [address] EST GFR - AA 81 mL/min Normal >60 [facility] Comment on above: Result Comment: Afri can Indian GFR Calc Performed By: #### L 100.0100, L500.4050, L501.5200 ####[facility] [address] [place], [address] GAP 5 Normal 5-15 [facility] Comment on above: Performed By: #### L 100.0100, L500.4050, L501.5200 ####[facility] [address] [place], [address] GFR/1.73 sq M.predicted among non-blacks MDRD (S/P/Bld) [Vol rate/Area] 67 mL/min/{1.73_m2} Normal >60 [facility] Comment on above: Result Comment: Non- GFR Calc Performed By: #### L 100.0100, L500.4050, L501.5200 ####[facility] [address] [place], [address] Globulin (S) [Mass/Vol] 2.6 g/dL Normal 2.2-4.2 [facility] Comment on above: Performed By: #### L 100.0100, L500.4050, L501.5200 ####[facility] [address], [address] Glucose [Mass/Vol] 103 mg/dL Normal 74-106 [facility] Comment on above: Result Comment: Fast ing Glucose result from 100 to 125 mg/dLsuggests IMPAIRED HOMEOSTASIS per A.D.A. criteria. Performed By: #### L 100.0100, L500.4050, L501.5200 ####[facility] [address] [place], [address] Potassium [Moles/Vol] 3.9 mmol/L Normal 3.5-5.1 [facility] Comment on above: Performed By: #### L 100.0100, L500.4050, L501.5200 ####[facility] [address] [place], [address] Sodium [Moles/Vol] 135 mmol/L Low 136-145 [facility] Comment on above: Performed By: #### L 100.0100, L500.4050, L501.5200 ####[facility] [address] [place], [address] T PROT 5.5 g/dL Low 6.4-8.2 [facility] Comment on above: Performed By: #### L 100.0100, L500.4050, L501.5200 ####[facility] [address] [place], [address] Urea nitrogen [Mass/Vol] 22 mg/dL High 7-18 [facility] Comment on above: Performed By: #### L 100.0100, L500.4050, L501.5200 ####[facility] [address] [place], [address] HH, Hemoglobin AND Hematocri ton 06-09-2024 Hematocrit (Bld) [Volume fraction] 27.8 % Low 40-54 [facility] Comment on above: Performed By: #### L 100.0600 ####[facility] [address] [place], [address] Hemoglobin (Bld) [Mass/Vol] 9.0 g/dL Low 13.0-16.5 [facility] Comment on above: Performed By: #### L 100.0600 ####[facility] [address] [place], [address] L501.4020on 06-09-2024 TROPONIN-I HS 88 pg/mL High 3.0-78.0 [facility] Comment on above: Order Comment: 'TROP ' Serial specimen #1, #2 or #3: 3 Result Comment: Plea se Note: New Test Units and Gender Specific Reference Ranges. For more information see Policy Stat Procedure Upham High Sensitivity Troponin (TNIH) and attachments. Performed By: #### L 501.4020 ####[facility] [address] [place], [address] Magnesiumon 06-09-2024 Magnesium [Mass/Vol] 1.8 mg/dL Normal 1.6-2.6 [facility] Comment on above: Performed By: #### L 100.0100, L500.4050, L501.5200 ####[facility] [address] [place], [address] Type AND Screenon 06-09-2024 Ab SCREEN GEL Negative Normal [facility] Comment on above: Order Comment: CMV N EG? NNumber of units to transfuse: 1Reason for Ordering Blood: AcuteAre the blood/blood products to be transfused? YIs the patient having/had surgery? NWhen Maxine Performed By: #### B TS, BRC ####[facility] [address] [place], [address] ABO and Rh group Nom (Bld) Blood group O Rh(D) positive Normal [facility] Comment on above: Order Comment: CMV N EG? NNumber of units to transfuse: 1Reason for Ordering Blood: AcuteAre the blood/blood products to be transfused? YIs the patient having/had surgery? Claudine Goodman Performed By: #### B TS, BRC ####[facility] [address] [place], [address] 12 Lead EKGon 06-08-2024 12 Lead EKG Normal [facility] BNP,B-Type NATRIURETIC PEPTI Иван 06-08-2024 Natriuretic peptide B (Bld) [Mass/Vol] 109.8 pg/mL High 0-100 [facility] Comment on above: Performed By: #### L 500.2500, L503.6620, L300.3900, L100.0100, L501.5425 ####[facility] [address] [place], [address] Basic Metabolic Profile (BMP )on 06-08-2024 BUN/CRE 18.2 RATIO Normal 10-20 [facility] Comment on above: Order Comment: 1Y Performed By: #### L 500.2500, L503.6620, L300.3900, L100.0100, L501.5425 ####[facility] [address] [place], [address] CA,Total 9.4 mg/dL Normal 8.5-10.1 [facility] Comment on above: Order Comment: 1Y Performed By: #### L 500.2500, L503.6620, L300.3900, L100.0100, L501.5425 ####[facility] [address] [place], [address] Chloride [Moles/Vol] 105 mmol/L Normal 98-107 [facility] Comment on above: Order Comment: 1Y Performed By: #### L 500.2500, L503.6620, L300.3900, L100.0100, L501.5425 ####[facility] [address] [place], [address] CO2 [Moles/Vol] 23.0 mmol/L Normal 21.0-32.0 [facility] Comment on above: Order Comment: 1Y Performed By: #### L 500.2500, L503.6620, L300.3900, L100.0100, L501.5425 ####[facility] [address] [place], [address] Creatinine [Mass/Vol] 1.21 mg/dL Normal 0.70-1.30 [facility] Comment on above: Order Comment: 1Y Result Comment: The validity of the calculated GFR GFRAA in patients over70 years has not been determined. Clinical correlation isessential. Performed By: #### L 500.2500, L503.6620, L300.3900, L100.0100, L501.5425 ####[facility] [address] [place], [address] ECRCL 45.52 ml/min Normal [facility] Comment on above: Order Comment: 1Y Performed By: #### L 500.2500, L503.6620, L300.3900, L100.0100, L501.5425 ####[facility] [address] [place], [address] EST GFR - AA 74 mL/min Normal >60 [facility] Comment on above: Order Comment: 1Y Result Comment: Afri can Indian GFR Calc Performed By: #### L 500.2500, L503.6620, L300.3900, L100.0100, L501.5425 ####[facility] [address] [place], [address] GAP 8 Normal 5-15 [facility] Comment on above: Order Comment: 1Y Performed By: #### L 500.2500, L503.6620, L300.3900, L100.0100, L501.5425 ####[facility] [address] [place], [address] GFR/1.73 sq M.predicted among non-blacks MDRD (S/P/Bld) [Vol rate/Area] 61 mL/min/{1.73_m2} Normal >60 [facility] Comment on above: Order Comment: 1Y Result Comment: Non- GFR Calc Performed By: #### L 500.2500, L503.6620, L300.3900, L100.0100, L501.5425 ####[facility] [address] [place], [address] Glucose [Mass/Vol] 127 mg/dL High 74-106 [facility] Comment on above: Order Comment: 1Y Result Comment: Fast ing Glucose result greater than or equal to 126 mg/dLsuggests DIABETES MELLITUS per A.D.A. criteria. Performed By: #### L 500.2500, L503.6620, L300.3900, L100.0100, L501.5425 ####[facility] [address] [place], [address] Potassium [Moles/Vol] 3.8 mmol/L Normal 3.5-5.1 [facility] Comment on above: Order Comment: 1Y Performed By: #### L 500.2500, L503.6620, L300.3900, L100.0100, L501.5425 ####[facility] [address] [place], [address] Sodium [Moles/Vol] 136 mmol/L Normal 136-145 [facility] Comment on above: Order Comment: 1Y Performed By: #### L 500.2500, L503.6620, L300.3900, L100.0100, L501.5425 ####[facility] [address] [place], [address] Urea nitrogen [Mass/Vol] 22 mg/dL High 7-18 [facility] Comment on above: Order Comment: 1Y Performed By: #### L 500.2500, L503.6620, L300.3900, L100.0100, L501.5425 ####[facility] [address] [place], [address] Biopsy/Inj or Needle Placeme nton 06-08-2024 Biopsy/Inj or Needle Placement Normal [facility] CBC W/Diff, Automatedon 11-0 Absolute Lymph 0.97 X10 3/uL Normal 0.83-4.51 [facility] Comment on above: Performed By: #### L 100.0100 ####[facility] [address] [place], [address] Absolute Neut 5.5 X10 3/uL Normal 2.0-7.7 [facility] Comment on above: Performed By: #### L 100.0100 ####[facility] [address] [place], [address] Basophils/100 WBC (Bld) 0.1 % Normal 0-1 [facility] Comment on above: Performed By: #### L 100.0100 ####[facility] [address] [place], [address] Eosinophils/100 WBC (Bld) 1.3 % Normal 0-5 [facility] Comment on above: Performed By: #### L 100.0100 ####[facility] [address] [place], [address] Erythrocyte distribution width (RBC) [Ratio] 18.9 % High 11.6-14.6 [facility] Comment on above: Performed By: #### L 100.0100 ####[facility] [address] [place], [address] Hematocrit (Bld) [Volume fraction] 27.6 % Low 40-54 [facility] Comment on above: Performed By: #### L 100.0100 ####[facility] [address] [place], [address] Hemoglobin (Bld) [Mass/Vol] 8.7 g/dL Low 13.0-16.5 [facility] Comment on above: Performed By: #### L 100.0100 ####[facility] [address] [place], [address] IG% 0.400 Normal 0.0-0.9 [facility] Comment on above: Result Comment: IG% - Immature Granulocytes (promyelocytes, myelocytes andmetamyelocytes) > 1% indicates that a LEFT SHIFT is Present. Performed By: #### L 100.0100 ####[facility] [address] [place], [address] Lymphocytes/100 WBC (Bld) 13.5 % Low 19-41 [facility] Comment on above: Performed By: #### L 100.0100 ####[facility] [address] [place], [address] MCH (RBC) [Entitic mass] 27.2 pg Normal 27.0-32.0 [facility] Comment on above: Performed By: #### L 100.0100 ####[facility] [address] [place], [address] MCHC (RBC) [Mass/Vol] 31.5 g/dL Low 32-36 [facility] Comment on above: Performed By: #### L 100.0100 ####[facility] [address] [place], [address] MCV (RBC) [Entitic vol] 86.3 fL Normal 80-94 [facility] Comment on above: Performed By: #### L 100.0100 ####[facility] [address] [place], [address] Monocytes/100 WBC (Bld) 8.1 % Normal 0-10 [facility] Comment on above: Performed By: #### L 100.0100 ####[facility] [address] [place], [address] Neutrophils/100 WBC (Bld) 76.6 % High 47-70 [facility] Comment on above: Performed By: #### L 100.0100 ####[facility] [address] [place], [address] Nucleated RBC (Bld) [#/Vol] 0 10*3/uL Normal 0-5 [facility] Comment on above: Performed By: #### L 100.0100 ####[facility] [address] [place], [address] Platelet mean volume (Bld) [Entitic vol] 9.1 fL Normal 6.2-12.0 [facility] Comment on above: Performed By: #### L 100.0100 ####[facility] [address] [place], [address] Platelets (Bld) [#/Vol] 265 10*3/uL Normal 150-450 [facility] Comment on above: Performed By: #### L 100.0100 ####[facility] [address] [place], [address] RBC (Bld) [#/Vol] 3.20 10*6/uL Low 4.6-6.2 [facility] Comment on above: Performed By: #### L 100.0100 ####[facility] [address] [place], [address] RDW SD 58.9 fl High 35.1-43.9 [facility] Comment on above: Performed By: #### L 100.0100 ####[facility] [address] [place], [address] WBC (Bld) [#/Vol] 7.2 10*3/uL Normal 4.4-11.0 [facility] Comment on above: Performed By: #### L 100.0100 ####[facility] [address] [place], [address] Absolute Lymph 1.94 X10 3/uL Normal 0.83-4.51 [facility] Comment on above: Performed By: #### L 500.2500, L503.6620, L300.3900, L100.0100, L501.5425 ####[facility] [address] [place], [address] Absolute Neut 10.2 X10 3/uL High 2.0-7.7 [facility] Comment on above: Performed By: #### L 500.2500, L503.6620, L300.3900, L100.0100, L501.5425 ####[facility] [address] [place], [address] Basophils/100 WBC (Bld) 0.2 % Normal 0-1 [facility] Comment on above: Performed By: #### L 500.2500, L503.6620, L300.3900, L100.0100, L501.5425 ####[facility] [address] [place], [address] Eosinophils/100 WBC (Bld) 1.6 % Normal 0-5 [facility] Comment on above: Performed By: #### L 500.2500, L503.6620, L300.3900, L100.0100, L501.5425 ####[facility] [address] [place], [address] Erythrocyte distribution width (RBC) [Ratio] 18.9 % High 11.6-14.6 [facility] Comment on above: Performed By: #### L 500.2500, L503.6620, L300.3900, L100.0100, L501.5425 ####[facility] [address] [place], [address] Hematocrit (Bld) [Volume fraction] 35.8 % Low 40-54 [facility] Comment on above: Performed By: #### L 500.2500, L503.6620, L300.3900, L100.0100, L501.5425 ####[facility] [address] [place], [address] Hemoglobin (Bld) [Mass/Vol] 11.1 g/dL Low 13.0-16.5 [facility] Comment on above: Performed By: #### L 500.2500, L503.6620, L300.3900, L100.0100, L501.5425 ####[facility] [address] [place], [address] IG% 0.600 Normal 0.0-0.9 [facility] Comment on above: Result Comment: IG% - Immature Granulocytes (promyelocytes, myelocytes andmetamyelocytes) > 1% indicates that a LEFT SHIFT is Present. Performed By: #### L 500.2500, L503.6620, L300.3900, L100.0100, L501.5425 ####[facility] [address] [place], [address] Lymphocytes/100 WBC (Bld) 14.5 % Low 19-41 [facility] Comment on above: Performed By: #### L 500.2500, L503.6620, L300.3900, L100.0100, L501.5425 ####[facility] [address] [place], [address] MCH (RBC) [Entitic mass] 26.5 pg Low 27.0-32.0 [facility] Comment on above: Performed By: #### L 500.2500, L503.6620, L300.3900, L100.0100, L501.5425 ####[facility] [address] [place], [address] MCHC (RBC) [Mass/Vol] 31.0 g/dL Low 32-36 [facility] Comment on above: Performed By: #### L 500.2500, L503.6620, L300.3900, L100.0100, L501.5425 ####[facility] [address] [place], [address] MCV (RBC) [Entitic vol] 85.4 fL Normal 80-94 [facility] Comment on above: Performed By: #### L 500.2500, L503.6620, L300.3900, L100.0100, L501.5425 ####[facility] [address] [place], [address] Monocytes/100 WBC (Bld) 6.7 % Normal 0-10 [facility] Comment on above: Performed By: #### L 500.2500, L503.6620, L300.3900, L100.0100, L501.5425 ####[facility] [address] [place], [address] Neutrophils/100 WBC (Bld) 76.4 % High 47-70 [facility] Comment on above: Performed By: #### L 500.2500, L503.6620, L300.3900, L100.0100, L501.5425 ####[facility] [address] [place], [address] Nucleated RBC (Bld) [#/Vol] 0 10*3/uL Normal 0-5 [facility] Comment on above: Performed By: #### L 500.2500, L503.6620, L300.3900, L100.0100, L501.5425 ####[facility] [address] [place], [address] Platelet mean volume (Bld) [Entitic vol] 9.8 fL Normal 6.2-12.0 [facility] Comment on above: Performed By: #### L 500.2500, L503.6620, L300.3900, L100.0100, L501.5425 ####[facility] [address] [place], [address] Platelets (Bld) [#/Vol] 372 10*3/uL Normal 150-450 [facility] Comment on above: Performed By: #### L 500.2500, L503.6620, L300.3900, L100.0100, L501.5425 ####[facility] [address] [place], [address] RBC (Bld) [#/Vol] 4.19 10*6/uL Low 4.6-6.2 [facility] Comment on above: Performed By: #### L 500.2500, L503.6620, L300.3900, L100.0100, L501.5425 ####[facility] [address] [place], [address] RDW SD 57.8 fl High 35.1-43.9 [facility] Comment on above: Performed By: #### L 500.2500, L503.6620, L300.3900, L100.0100, L501.5425 ####[facility] [address] [place], [address] WBC (Bld) [#/Vol] 13.4 10*3/uL High 4.4-11.0 [facility] Comment on above: Performed By: #### L 500.2500, L503.6620, L300.3900, L100.0100, L501.5425 ####[facility] [address] [place], [address] Absolute Lymph 1.50 X10 3/uL Normal 0.83-4.51 [facility] Comment on above: Performed By: #### L 300.4310, L100.0100, L300.3900 ####[facility] [address] [place], [address] Absolute Neut 4.2 X10 3/uL Normal 2.0-7.7 [facility] Comment on above: Performed By: #### L 300.4310, L100.0100, L300.3900 ####[facility] [address] [place], [address] Basophils/100 WBC (Bld) 0.4 % Normal 0-1 [facility] Comment on above: Performed By: #### L 300.4310, L100.0100, L300.3900 ####[facility] [address] [place], [address] Eosinophils/100 WBC (Bld) 4.9 % Normal 0-5 [facility] Comment on above: Performed By: #### L 300.4310, L100.0100, L300.3900 ####[facility] [address] [place], [address] Erythrocyte distribution width (RBC) [Ratio] 18.9 % High 11.6-14.6 [facility] Comment on above: Performed By: #### L 300.4310, L100.0100, L300.3900 ####[facility] [address] [place], [address] Hematocrit (Bld) [Volume fraction] 36.2 % Low 40-54 [facility] Comment on above: Performed By: #### L 300.4310, L100.0100, L300.3900 ####[facility] [address] [place], [address] Hemoglobin (Bld) [Mass/Vol] 11.4 g/dL Low 13.0-16.5 [facility] Comment on above: Performed By: #### L 300.4310, L100.0100, L300.3900 ####[facility] [address] [place], [address] IG% 0.400 Normal 0.0-0.9 [facility] Comment on above: Result Comment: IG% - Immature Granulocytes (promyelocytes, myelocytes andmetamyelocytes) > 1% indicates that a LEFT SHIFT is Present. Performed By: #### L 300.4310, L100.0100, L300.3900 ####[facility] [address] [place], [address] Lymphocytes/100 WBC (Bld) 21.6 % Normal 19-41 [facility] Comment on above: Performed By: #### L 300.4310, L100.0100, L300.3900 ####[facility] [address] [place], [address] MCH (RBC) [Entitic mass] 26.8 pg Low 27.0-32.0 [facility] Comment on above: Performed By: #### L 300.4310, L100.0100, L300.3900 ####[facility] [address] [place], [address] MCHC (RBC) [Mass/Vol] 31.5 g/dL Low 32-36 [facility] Comment on above: Performed By: #### L 300.4310, L100.0100, L300.3900 ####[facility] [address] [place], [address] MCV (RBC) [Entitic vol] 85.2 fL Normal 80-94 [facility] Comment on above: Performed By: #### L 300.4310, L100.0100, L300.3900 ####[facility] [address] [place], [address] Monocytes/100 WBC (Bld) 11.8 % High 0-10 [facility] Comment on above: Performed By: #### L 300.4310, L100.0100, L300.3900 ####[facility] [address] [place], [address] Neutrophils/100 WBC (Bld) 60.9 % Normal 47-70 [facility] Comment on above: Performed By: #### L 300.4310, L100.0100, L300.3900 ####[facility] [address] [place], [address] Nucleated RBC (Bld) [#/Vol] 0 10*3/uL Normal 0-5 [facility] Comment on above: Performed By: #### L 300.4310, L100.0100, L300.3900 ####[facility] [address] [place], [address] Platelet mean volume (Bld) [Entitic vol] 9.5 fL Normal 6.2-12.0 [facility] Comment on above: Performed By: #### L 300.4310, L100.0100, L300.3900 ####[facility] [address] [place], [address] Platelets (Bld) [#/Vol] 344 10*3/uL Normal 150-450 [facility] Comment on above: Performed By: #### L 300.4310, L100.0100, L300.3900 ####[facility] [address] [place], [address] RBC (Bld) [#/Vol] 4.25 10*6/uL Low 4.6-6.2 [facility] Comment on above: Performed By: #### L 300.4310, L100.0100, L300.3900 ####[facility] [address] [place], [address] RDW SD 57.6 fl High 35.1-43.9 [facility] Comment on above: Performed By: #### L 300.4310, L100.0100, L300.3900 ####[facility] [address] [place], [address] WBC (Bld) [#/Vol] 6.9 10*3/uL Normal 4.4-11.0 [facility] Comment on above: Performed By: #### L 300.4310, L100.0100, L300.3900 ####[facility] [address] [place], [address] CBC-Complete Blood Cnt No Di ffon 06-08-2024 Erythrocyte distribution width (RBC) [Ratio] 18.8 % High 11.6-14.6 [facility] Comment on above: Performed By: #### L 100.0500 ####[facility] [address] [place], [address] Hematocrit (Bld) [Volume fraction] 30.7 % Low 40-54 [facility] Comment on above: Performed By: #### L 100.0500 ####[facility] [address] [place], [address] Hemoglobin (Bld) [Mass/Vol] 9.8 g/dL Low 13.0-16.5 [facility] Comment on above: Performed By: #### L 100.0500 ####[facility] [address] [place], [address] MCH (RBC) [Entitic mass] 27.1 pg Normal 27.0-32.0 [facility] Comment on above: Performed By: #### L 100.0500 ####[facility] [address] [place], [address] MCHC (RBC) [Mass/Vol] 31.9 g/dL Low 32-36 [facility] Comment on above: Performed By: #### L 100.0500 ####[facility] [address] [place], [address] MCV (RBC) [Entitic vol] 84.8 fL Normal 80-94 [facility] Comment on above: Performed By: #### L 100.0500 ####[facility] [address] [place], [address] Platelet mean volume (Bld) [Entitic vol] 9.1 fL Normal 6.2-12.0 [facility] Comment on above: Performed By: #### L 100.0500 ####[facility] [address] [place], [address] Platelets (Bld) [#/Vol] 284 10*3/uL Normal 150-450 [facility] Comment on above: Performed By: #### L 100.0500 ####[facility] [address] [place], [address] RBC (Bld) [#/Vol] 3.62 10*6/uL Low 4.6-6.2 [facility] Comment on above: Performed By: #### L 100.0500 ####[facility] [address] [place], [address] RDW SD 57.6 fl High 35.1-43.9 [facility] Comment on above: Performed By: #### L 100.0500 ####[facility] [address] [place], [address] WBC (Bld) [#/Vol] 9.9 10*3/uL Normal 4.4-11.0 [facility] Comment on above: Performed By: #### L 100.0500 ####[facility] [address] [place], [address] CTA Chst, Abd, Pel W and/or WOon 06-08-2024 CTA Chst, Abd, Pel W and/or WO Normal [facility] Chest 1 View (Portable)on Chest 1 View (Portable) Normal [facility] Emergency Department Summary on 06-08-2024 Emergency Department Summary Normal [facility] H AND P Exam - Hospitaliston 06-08-2024 H&P Exam - Hospitalist Normal [facility] L501.4020on 06-08-2024 TROPONIN-I HS 96 pg/mL High 3.0-78.0 [facility] Comment on above: Result Comment: Pledhruv vieyra Note: New Test Units and Gender Specific Reference Ranges. For more information see Policy Stat Procedure Upham High Sensitivity Troponin (TNIH) and attachments. Performed By: #### L 501.4020 ####[facility] [address] [place], [address] L501.5425on 06-08-2024 TROPONIN-I HS 97 pg/mL High 3.0-78.0 [facility] Comment on above: Order Comment: 1Y Result Comment: Debi vieyra Note: New Test Units and Gender Specific Reference Ranges. For more information see Policy Stat Procedure Upham High Sensitivity Troponin (TNIH) and attachments. Performed By: #### L 500.2500, L503.6620, L300.3900, L100.0100, L501.5425 ####[facility] [address] [place], [address] Lipaseon 06-08-2024 Lipase [Catalytic activity/Vol] 26 U/L Normal 13-75 [facility] Comment on above: Result Comment: Debi vieyra note:LIPASE revised reference range effective 22.New Lipase methodology. Expected to produce lower valuesthan the previous assay method.NEW Reference Range: 13 - 75 U/L Performed By: #### L 500.3400, L501.2450 ####[facility] [address] [place], [address] Liver Profileon 06-08-2024 Albumin [Mass/Vol] 3.6 g/dL Normal 3.2-5.0 [facility] Comment on above: Performed By: #### L 500.3400, L501.2450 ####[facility] [address] [place], [address] ALK P 103 U/L Normal 45-117 [facility] Comment on above: Performed By: #### L 500.3400, L501.2450 ####[facility] [address] [place], [address] ALT [Catalytic activity/Vol] 20 U/L Normal 16-61 [facility] Comment on above: Performed By: #### L 500.3400, L501.2450 ####[facility] [address] [place], [address] AST [Catalytic activity/Vol] 23 U/L Normal 15-37 [facility] Comment on above: Performed By: #### L 500.3400, L501.2450 ####[facility] [address] [place], [address] Bilirubin [Mass/Vol] 0.60 mg/dL Normal 0.20-1.00 [facility] Comment on above: Result Comment: For patients on eltrombopag therapy, use of Dimension Upham TBIL is not recommended. Performed By: #### L 500.3400, L501.2450 ####[facility] [address] [place], [address] Bilirubin.direct [Mass/Vol] 0.18 mg/dL Normal 0.00-0.30 [facility] Comment on above: Performed By: #### L 500.3400, L501.2450 ####[facility] [address] [place], [address] Globulin (S) [Mass/Vol] 3.5 g/dL Normal 2.2-4.2 [facility] Comment on above: Performed By: #### L 500.3400, L501.2450 ####[facility] [address] [place], [address] T PROT 7.1 g/dL Normal 6.4-8.2 [facility] Comment on above: Performed By: #### L 500.3400, L501.2450 ####[facility] [address] [place], [address] Partial Thromboplast Timeon 06-08-2024 aPTT Coag (Bld) [Time] 32.9 s Normal 24.1-36.2 [facility] Comment on above: Performed By: #### L 300.4310, L100.0100, L300.3900 ####[facility] [address] [place], [address] Prothrombin Time w/INRon INR Coag (PPP) [Relative time] 1.1 {INR} Normal [facility] Comment on above: Performed By: #### L 500.2500, L503.6620, L300.3900, L100.0100, L501.5425 ####[facility] [address] [place], [address] PT Coag (PPP) [Time] 14.3 s Normal 11.7-14.9 [facility] Comment on above: Performed By: #### L 500.2500, L503.6620, L300.3900, L100.0100, L501.5425 ####[facility] [address] [place], [address] INR Coag (PPP) [Relative time] 1.1 {INR} Normal [facility] Comment on above: Performed By: #### L 300.4310, L100.0100, L300.3900 ####[facility] [address] [place], [address] PT Coag (PPP) [Time] 13.9 s Normal 11.7-14.9 [facility] Comment on above: Performed By: #### L 300.4310, L100.0100, L300.3900 ####[facility] [address] [place], [address] Trichrome (control)on 2023 Trichrome (control) Normal [facility] Comment on above: Performed By: #### P TRI ####[facility] [address] [place], [address] 12 Lead EKGon 06-07-2024 12 Lead EKG Normal [facility] Basic Metabolic Profile (BMP )on 06-07-2024 BUN/CRE 18.3 RATIO Normal 10-20 [facility] Comment on above: Performed By: #### L 500.2500, L100.0100 ####[facility] [address] [place], [address] CA,Total 9.7 mg/dL Normal 8.5-10.1 [facility] Comment on above: Performed By: #### L 500.2500, L100.0100 ####[facility] [address] [place], [address] Chloride [Moles/Vol] 103 mmol/L Normal 98-107 [facility] Comment on above: Performed By: #### L 500.2500, L100.0100 ####[facility] [address] [place], [address] CO2 [Moles/Vol] 26.0 mmol/L Normal 21.0-32.0 [facility] Comment on above: Performed By: #### L 500.2500, L100.0100 ####[facility] [address] [place], [address] Creatinine [Mass/Vol] 1.04 mg/dL Normal 0.70-1.30 [facility] Comment on above: Result Comment: The validity of the calculated GFR GFRAA in patients over70 years has not been determined. Clinical correlation isessential. Performed By: #### L 500.2500, L100.0100 ####[facility] [address] [place], [address] ECRCL 52.96 ml/min Normal [facility] Comment on above: Performed By: #### L 500.2500, L100.0100 ####[facility] [address] [place], [address] EST GFR - AA 88 mL/min Normal >60 [facility] Comment on above: Result Comment: Afri can Indian GFR Calc Performed By: #### L 500.2500, L100.0100 ####[facility] [address] [place], [address] GAP 7 Normal 5-15 [facility] Comment on above: Performed By: #### L 500.2500, L100.0100 ####[facility] [address] [place], [address] GFR/1.73 sq M.predicted among non-blacks MDRD (S/P/Bld) [Vol rate/Area] 73 mL/min/{1.73_m2} Normal >60 [facility] Comment on above: Result Comment: Non- GFR Calc Performed By: #### L 500.2500, L100.0100 ####[facility] [address] [place], [address] Glucose [Mass/Vol] 101 mg/dL Normal 74-106 [facility] Comment on above: Result Comment: Fast ing Glucose result from 100 to 125 mg/dLsuggests IMPAIRED HOMEOSTASIS per A.D.A. criteria. Performed By: #### L 500.2500, L100.0100 ####[facility] [address] [place], [address] Potassium [Moles/Vol] 4.1 mmol/L Normal 3.5-5.1 [facility] Comment on above: Performed By: #### L 500.2500, L100.0100 ####[facility] [address] [place], [address] Sodium [Moles/Vol] 136 mmol/L Normal 136-145 [facility] Comment on above: Performed By: #### L 500.2500, L100.0100 ####[facility] [address] [place], [address] Urea nitrogen [Mass/Vol] 19 mg/dL High 7-18 [facility] Comment on above: Performed By: #### L 500.2500, L100.0100 ####[facility] [address] [place], [address] CBC W/Diff, Automatedon 11-0 -2023 Absolute Lymph 1.13 X10 3/uL Normal 0.83-4.51 [facility] Comment on above: Performed By: #### L 500.2500, L100.0100 ####[facility] [address] [place], [address] Absolute Neut 3.7 X10 3/uL Normal 2.0-7.7 [facility] Comment on above: Performed By: #### L 500.2500, L100.0100 ####[facility] [address] [place], [address] Basophils/100 WBC (Bld) 0.4 % Normal 0-1 [facility] Comment on above: Performed By: #### L 500.2500, L100.0100 ####[facility] [address], [address] Eosinophils/100 WBC (Bld) 4.1 % Normal 0-5 [facility] Comment on above: Performed By: #### L 500.2500, L100.0100 ####[facility] [address] [place], [address] Erythrocyte distribution width (RBC) [Ratio] 18.9 % High 11.6-14.6 [facility] Comment on above: Performed By: #### L 500.2500, L100.0100 ####[facility] [address] [place], [address] Hematocrit (Bld) [Volume fraction] 35.0 % Low 40-54 [facility] Comment on above: Performed By: #### L 500.2500, L100.0100 ####[facility] [address] [place], [address] Hemoglobin (Bld) [Mass/Vol] 11.1 g/dL Low 13.0-16.5 [facility] Comment on above: Performed By: #### L 500.2500, L100.0100 ####[facility] [address] [place], [address] IG% 0.400 Normal 0.0-0.9 [facility] Comment on above: Result Comment: IG% - Immature Granulocytes (promyelocytes, myelocytes andmetamyelocytes) > 1% indicates that a LEFT SHIFT is Present. Performed By: #### L 500.2500, L100.0100 ####[facility] [address] [place], [address] Lymphocytes/100 WBC (Bld) 20.0 % Normal 19-41 [facility] Comment on above: Performed By: #### L 500.2500, L100.0100 ####[facility] [address] [place], [address] MCH (RBC) [Entitic mass] 27.1 pg Normal 27.0-32.0 [facility] Comment on above: Performed By: #### L 500.2500, L100.0100 ####[facility] [address] [place], [address] MCHC (RBC) [Mass/Vol] 31.7 g/dL Low 32-36 [facility] Comment on above: Performed By: #### L 500.2500, L100.0100 ####[facility] [address] [place], [address] MCV (RBC) [Entitic vol] 85.4 fL Normal 80-94 [facility] Comment on above: Performed By: #### L 500.2500, L100.0100 ####[facility] [address] [place], [address] Monocytes/100 WBC (Bld) 10.4 % High 0-10 [facility] Comment on above: Performed By: #### L 500.2500, L100.0100 ####[facility] [address] [place], [address] Neutrophils/100 WBC (Bld) 64.7 % Normal 47-70 [facility] Comment on above: Performed By: #### L 500.2500, L100.0100 ####[facility] [address] [place], [address] Nucleated RBC (Bld) [#/Vol] 0 10*3/uL Normal 0-5 [facility] Comment on above: Performed By: #### L 500.2500, L100.0100 ####[facility] [address] [place], [address] Platelet mean volume (Bld) [Entitic vol] 9.5 fL Normal 6.2-12.0 [facility] Comment on above: Performed By: #### L 500.2500, L100.0100 ####[facility] [address] [place], [address] Platelets (Bld) [#/Vol] 301 10*3/uL Normal 150-450 [facility] Comment on above: Performed By: #### L 500.2500, L100.0100 ####[facility] [address] [place], [address] RBC (Bld) [#/Vol] 4.10 10*6/uL Low 4.6-6.2 [facility] Comment on above: Performed By: #### L 500.2500, L100.0100 ####[facility] [address] [place], [address] RDW SD 57.8 fl High 35.1-43.9 [facility] Comment on above: Performed By: #### L 500.2500, L100.0100 ####[facility] [address] [place], [address] WBC (Bld) [#/Vol] 5.7 10*3/uL Normal 4.4-11.0 [facility] Comment on above: Performed By: #### L 500.2500, L100.0100 ####[facility] [address] [place], [address] Emergency Department Summary on 06-07-2024 Emergency Department Summary Normal [facility] Surgery Visit Reporton 06-07 Surgery Visit Report Normal [facility] Oncology Visit Reporton 05-03 Oncology Visit Report Normal [facility] PET/CT Tumor Base -Thigh Ini ton 05-29-2024 PET/CT Tumor Base -Thigh Init Normal [facility] Carcinoembryonic Antigenon 1 CEA 2.2 ng/mL Normal 0.0-4.7 [facility] Comment on above: Order Comment: Speci men Comment: A duplicate report has been generateddue to demographicSpecimen Comment: updates. Result Comment: Nons mokers <3.9 Smokers <5.6[employer] Electrochemiluminescence Immunoassay(ECLIA)Values obtained with different assay methods or kitscannot be used interchangeably. Results cannot beinterpreted as absolute evidence of the presence orabsence of malignant disease.Performed at: [facility] [address] [id number] Director: Jian Paredes PhD, Phone: [phone] Performed By: #### L 0410.0800, M427.1059 ####[facility] [address] [place], [address] C-reactive protein measureme nt by high sensitivity methodOrdered By: Papi Hernandez on 05-16-2024 C-Reactive Protein Extended Range 5.71 mg/L High 0.0-3.0 [facility] Comment on above: C-Reactive Protein ( CRP) provides useful information for thediagnosis, therapy and monitoring of inflammatory processesand associated diseases. For the evaluation of Relative Riskfor Cardiovascular Disease, a High Sensitivity CRP (HSCRP)should be ordered. C-reactive protein measurement by high sensitivity method 5.71 mg/L High 0.0-3.0 [facility] Comment on above: C-Reactive Protein ( CRP) provides useful information for thediagnosis, therapy and monitoring of inflammatory processesand associated diseases. For the evaluation of Relative Riskfor Cardiovascular Disease, a High Sensitivity CRP (HSCRP)should be ordered. CBC W/Diff, Automatedon 10- Absolute Lymph 1.28 X10 3/uL Normal 0.83-4.51 [facility] Comment on above: Performed By: #### L 100.0100, L101.9900, L100.9950, L503.6030, L501.6710, L500.4050, L900.0098 ####[facility] [address] [place], [address] Absolute Neut 3.8 X10 3/uL Normal 2.0-7.7 [facility] Comment on above: Performed By: #### L 100.0100, L101.9900, L100.9950, L503.6030, L501.6710, L500.4050, L900.0098 ####[facility] [address] [place], [address] Basophils/100 WBC (Bld) 0.3 % Normal 0-1 [facility] Comment on above: Performed By: #### L 100.0100, L101.9900, L100.9950, L503.6030, L501.6710, L500.4050, L900.0098 ####[facility] [address] [place], [address] Eosinophils/100 WBC (Bld) 2.6 % Normal 0-5 [facility] Comment on above: Performed By: #### L 100.0100, L101.9900, L100.9950, L503.6030, L501.6710, L500.4050, L900.0098 ####[facility] [address] [place], [address] Erythrocyte distribution width (RBC) [Ratio] 14.2 % Normal 11.6-14.6 [facility] Comment on above: Performed By: #### L 100.0100, L101.9900, L100.9950, L503.6030, L501.6710, L500.4050, L900.0098 ####[facility] [address] [place], [address] Hematocrit (Bld) [Volume fraction] 30.5 % Low 40-54 [facility] Comment on above: Performed By: #### L 100.0100, L101.9900, L100.9950, L503.6030, L501.6710, L500.4050, L900.0098 ####[facility] [address] [place], [address] Hemoglobin (Bld) [Mass/Vol] 9.6 g/dL Low 13.0-16.5 [facility] Comment on above: Performed By: #### L 100.0100, L101.9900, L100.9950, L503.6030, L501.6710, L500.4050, L900.0098 ####[facility] [address] [place], [address] IG% 0.300 Normal 0.0-0.9 [facility] Comment on above: Result Comment: IG% - Immature Granulocytes (promyelocytes, myelocytes andmetamyelocytes) > 1% indicates that a LEFT SHIFT is Present. Performed By: #### L 100.0100, L101.9900, L100.9950, L503.6030, L501.6710, L500.4050, L900.0098 ####[facility] [address] [place], [address] Lymphocytes/100 WBC (Bld) 21.9 % Normal 19-41 [facility] Comment on above: Performed By: #### L 100.0100, L101.9900, L100.9950, L503.6030, L501.6710, L500.4050, L900.0098 ####[facility] [address] [place], [address] MCH (RBC) [Entitic mass] 25.9 pg Low 27.0-32.0 [facility] Comment on above: Performed By: #### L 100.0100, L101.9900, L100.9950, L503.6030, L501.6710, L500.4050, L900.0098 ####[facility] [address] [place], [address] MCHC (RBC) [Mass/Vol] 31.5 g/dL Low 32-36 [facility] Comment on above: Performed By: #### L 100.0100, L101.9900, L100.9950, L503.6030, L501.6710, L500.4050, L900.0098 ####[facility] [address] [place], [address] MCV (RBC) [Entitic vol] 82.2 fL Normal 80-94 [facility] Comment on above: Performed By: #### L 100.0100, L101.9900, L100.9950, L503.6030, L501.6710, L500.4050, L900.0098 ####[facility] [address] [place], [address] Monocytes/100 WBC (Bld) 9.6 % Normal 0-10 [facility] Comment on above: Performed By: #### L 100.0100, L101.9900, L100.9950, L503.6030, L501.6710, L500.4050, L900.0098 ####[facility] [address] [place], [address] Neutrophils/100 WBC (Bld) 65.3 % Normal 47-70 [facility] Comment on above: Performed By: #### L 100.0100, L101.9900, L100.9950, L503.6030, L501.6710, L500.4050, L900.0098 ####[facility] [address] [place], [address] Nucleated RBC (Bld) [#/Vol] 0 10*3/uL Normal 0-5 [facility] Comment on above: Performed By: #### L 100.0100, L101.9900, L100.9950, L503.6030, L501.6710, L500.4050, L900.0098 ####[facility] [address] [place], [address] Platelet mean volume (Bld) [Entitic vol] 9.1 fL Normal 6.2-12.0 [facility] Comment on above: Performed By: #### L 100.0100, L101.9900, L100.9950, L503.6030, L501.6710, L500.4050, L900.0098 ####[facility] [address] [place], [address] Platelets (Bld) [#/Vol] 373 10*3/uL Normal 150-450 [facility] Comment on above: Performed By: #### L 100.0100, L101.9900, L100.9950, L503.6030, L501.6710, L500.4050, L900.0098 ####[facility] [address] [place], [address] RBC (Bld) [#/Vol] 3.71 10*6/uL Low 4.6-6.2 [facility] Comment on above: Performed By: #### L 100.0100, L101.9900, L100.9950, L503.6030, L501.6710, L500.4050, L900.0098 ####[facility] [address] [place], [place], [phone] RDW SD 42.2 fl Normal 35.1-43.9 [facility] Comment on above: Performed By: #### L 100.0100, L101.9900, L100.9950, L503.6030, L501.6710, L500.4050, L900.0098 ####[facility] [address] [place], [place], [phone] WBC (Bld) [#/Vol] 5.8 10*3/uL Normal 4.4-11.0 [facility] Comment on above: Performed By: #### L 100.0100, L101.9900, L100.9950, L503.6030, L501.6710, L500.4050, L900.0098 ####[facility] [address] [place], [address] CRPon 05-16-2024 C-REACTIVE PROT 5.71 mg/L High 0.0-3.0 [facility] Comment on above: Result Comment: C-Re active Protein (CRP) provides useful information for thediagnosis, therapy and monitoring of inflammatory processesand associated diseases. For the evaluation of Relative Riskfor Cardiovascular Disease, a High Sensitivity CRP (HSCRP)should be ordered. Performed By: #### L 100.0100, L101.9900, L100.9950, L503.6030, L501.6710, L500.4050, L900.0098 ####[facility] [address] [place], [place], [phone] Comprehensive Metabolic Prof ilon 05-16-2024 Albumin [Mass/Vol] 3.9 g/dL Normal 3.2-5.0 [facility] Comment on above: Performed By: #### L 100.0100, L101.9900, L100.9950, L503.6030, L501.6710, L500.4050, L900.0098 ####[facility] [address] [place], [address] Albumin/Globulin [Mass ratio] 1.1 {ratio} Normal 0.9-2.4 [facility] Comment on above: Performed By: #### L 100.0100, L101.9900, L100.9950, L503.6030, L501.6710, L500.4050, L900.0098 ####[facility] [address] [place], [address] ALK P 101 U/L Normal 45-117 [facility] Comment on above: Performed By: #### L 100.0100, L101.9900, L100.9950, L503.6030, L501.6710, L500.4050, L900.0098 ####[facility] [address] [place], [address] ALT [Catalytic activity/Vol] 19 U/L Normal 16-61 [facility] Comment on above: Performed By: #### L 100.0100, L101.9900, L100.9950, L503.6030, L501.6710, L500.4050, L900.0098 ####[facility] [address] [place], [address] AST [Catalytic activity/Vol] 15 U/L Normal 15-37 [facility] Comment on above: Performed By: #### L 100.0100, L101.9900, L100.9950, L503.6030, L501.6710, L500.4050, L900.0098 ####[facility] [address] [place], [address] Bilirubin [Mass/Vol] 0.50 mg/dL Normal 0.20-1.00 [facility] Comment on above: Result Comment: For patients on eltrombopag therapy, use of Dimension Upham TBIL is not recommended. Performed By: #### L 100.0100, L101.9900, L100.9950, L503.6030, L501.6710, L500.4050, L900.0098 ####[facility] [address] [place], [address] BUN/CRE 16.7 RATIO Normal 10-20 [facility] Comment on above: Performed By: #### L 100.0100, L101.9900, L100.9950, L503.6030, L501.6710, L500.4050, L900.0098 ####[facility] [address] [place], [address] CA,Total 9.6 mg/dL Normal 8.5-10.1 [facility] Comment on above: Performed By: #### L 100.0100, L101.9900, L100.9950, L503.6030, L501.6710, L500.4050, L900.0098 ####[facility] [address] [place], [address] Chloride [Moles/Vol] 105 mmol/L Normal 98-107 [facility] Comment on above: Performed By: #### L 100.0100, L101.9900, L100.9950, L503.6030, L501.6710, L500.4050, L900.0098 ####[facility] [address] [place], [address] CO2 [Moles/Vol] 26.0 mmol/L Normal 21.0-32.0 [facility] Comment on above: Performed By: #### L 100.0100, L101.9900, L100.9950, L503.6030, L501.6710, L500.4050, L900.0098 ####[facility] [address] [place], [place], [id number] Creatinine [Mass/Vol] 1.14 mg/dL Normal 0.70-1.30 [facility] Comment on above: Result Comment: The validity of the calculated GFR GFRAA in patients over70 years has not been determined. Clinical correlation isessential. Performed By: #### L 100.0100, L101.9900, L100.9950, L503.6030, L501.6710, L500.4050, L900.0098 ####[facility] [address] [place], [place], [phone] EST GFR - AA 79 mL/min Normal >60 [facility] Comment on above: Result Comment: Afri can Indian GFR Calc Performed By: #### L 100.0100, L101.9900, L100.9950, L503.6030, L501.6710, L500.4050, L900.0098 ####[facility] [address] [place], [place], [id number] GAP 4 Low 5-15 [facility] Comment on above: Performed By: #### L 100.0100, L101.9900, L100.9950, L503.6030, L501.6710, L500.4050, L900.0098 ####[facility] [address] [place], [address] GFR/1.73 sq M.predicted among non-blacks MDRD (S/P/Bld) [Vol rate/Area] 66 mL/min/{1.73_m2} Normal >60 [facility] Comment on above: Result Comment: Non- GFR Calc Performed By: #### L 100.0100, L101.9900, L100.9950, L503.6030, L501.6710, L500.4050, L900.0098 ####[facility] [address] [place], [address] Globulin (S) [Mass/Vol] 3.7 g/dL Normal 2.2-4.2 [facility] Comment on above: Performed By: #### L 100.0100, L101.9900, L100.9950, L503.6030, L501.6710, L500.4050, L900.0098 ####[facility] [address] [place], [address] Glucose [Mass/Vol] 102 mg/dL Normal 74-106 [facility] Comment on above: Result Comment: Fast ing Glucose result from 100 to 125 mg/dLsuggests IMPAIRED HOMEOSTASIS per A.D.A. criteria. Performed By: #### L 100.0100, L101.9900, L100.9950, L503.6030, L501.6710, L500.4050, L900.0098 ####[facility] [address] [place], [address] Potassium [Moles/Vol] 4.4 mmol/L Normal 3.5-5.1 [facility] Comment on above: Performed By: #### L 100.0100, L101.9900, L100.9950, L503.6030, L501.6710, L500.4050, L900.0098 ####[facility] [address] [place], [address] Sodium [Moles/Vol] 135 mmol/L Low 136-145 [facility] Comment on above: Performed By: #### L 100.0100, L101.9900, L100.9950, L503.6030, L501.6710, L500.4050, L900.0098 ####[facility] [address] [place], [address] T PROT 7.6 g/dL Normal 6.4-8.2 [facility] Comment on above: Performed By: #### L 100.0100, L101.9900, L100.9950, L503.6030, L501.6710, L500.4050, L900.0098 ####[facility] [address] [place], [address] Urea nitrogen [Mass/Vol] 19 mg/dL High 7-18 [facility] Comment on above: Performed By: #### L 100.0100, L101.9900, L100.9950, L503.6030, L501.6710, L500.4050, L900.0098 ####[facility] [address] [place], [address] Erythrocyte Sed Rateon 05-16 SED RATE 13 mm/hr Normal 0-20 [facility] Comment on above: Performed By: #### L 100.0100, L101.9900, L100.9950, L503.6030, L501.6710, L500.4050, L900.0098 ####[facility] [address] [place], [address] Erythrocyte sedimentation ra teOrdered By: Papi Hernandez on 05-16-2024 ESR (Bld) [Velocity] 13 mm/h 0-20 [facility] Ferritinon 05-16-2024 Ferritin [Mass/Vol] 31 ng/mL Normal 26-388 [facility] Comment on above: Performed By: #### L 3100.2300, L503.6550 ####[facility] [address] [place], [place], [id number] Ferritin measurementOrdered By: Papi Hernandez on 05-16-2024 Ferritin [Mass/Vol] 31 ng/mL 26-388 [facility] Hemoglobin (Reticulocytes) [ Entitic mass]Ordered By: Papi Hernandez on 05-16-2024 Reticulocyte Hemoglobin Equivalent 27.6 pg Low 30-35 [facility] Immature reticulocyte fracti onOrdered By: Papi Hernandez on 05-16-2024 Immature Reticulocyte Fraction 16.60 % High 3.00-15.90 [facility] Iron (Unsp spec) [Mass/Mass] Ordered By: Papi Hernandez on 05-16-2024 Iron [Mass/Vol] 29 ug/dL Low 65-175 [facility] Iron measurement (mass/mass) Ordered By: Papi Hernandez on 05-16-2024 Iron (Unsp spec) [Mass/Mass] 29 ug/dL Low 65-175 [facility] Iron saturation [Mass fracti on]Ordered By: Papi Hernandez on 05-16-2024 Iron Saturation 7.2 % Low 15.0-55.0 [facility] Iron+Iron Binding Capacityon 05-16-2024 Iron [Mass/Vol] 29 ug/dL Low 65-175 [facility] Comment on above: Performed By: #### L 100.0100, L101.9900, L100.9950, L503.6030, L501.6710, L500.4050, L900.0098 ####[facility] [address] [place], [address] IRON SATURATION 7.2 Low 15.0-55.0 [facility] Comment on above: Performed By: #### L 100.0100, L101.9900, L100.9950, L503.6030, L501.6710, L500.4050, L900.0098 ####[facility] [address] [place], [address] TIBC 401 ug/dL Normal 250-450 [facility] Comment on above: Performed By: #### L 100.0100, L101.9900, L100.9950, L503.6030, L501.6710, L500.4050, L900.0098 ####[facility] [address] [place], [address] NATERAon 05-16-2024 KING SEE SCANNED REPORT Normal [facility] Comment on above: Performed By: #### L 100.0100, L101.9900, L100.9950, L503.6030, L501.6710, L500.4050, L900.0098 ####[facility] [address] [place], [place], [id number] Oncology Visit Reporton 05-01 Oncology Visit Report Normal [facility] Retic Panelon 05-16-2024 IM RET FRACTION 16.60 High 3.00-15.90 [facility] Comment on above: Performed By: #### L 100.0100, L101.9900, L100.9950, L503.6030, L501.6710, L500.4050, L900.0098 ####[facility] [address] [place], [place], [phone] RET-HE 27.6 pg Low 30-35 [facility] Comment on above: Performed By: #### L 100.0100, L101.9900, L100.9950, L503.6030, L501.6710, L500.4050, L900.0098 ####[facility] [address] [place], [place], [id number] Retic Count 1.19 Normal 0.5-1.5 [facility] Comment on above: Performed By: #### L 100.0100, L101.9900, L100.9950, L503.6030, L501.6710, L500.4050, L900.0098 ####[facility] [address] [place], [place], [id number] Reticulocyte hemoglobin equi valent (RET-He) measurementOrdered By: Papi Hernandez on 05-16-2024 Hemoglobin (Reticulocytes) [Entitic mass] 27.6 pg Low 30-35 [facility] Reticulocytes Auto (Bld) [#/ Vol]Ordered By: Papi Hernandez on 05-16-2024 Reticulocyte Count 1.19 % 0.5-1.5 [facility] Reticulocytes/100 RBC (Bld) 1.19 % 0.5-1.5 [facility] Serum or plasma iron saturat ion measurement (mass fraction)Ordered By: Papi Hernandez on 05-16-2024 Iron saturation [Mass fraction] 7.2 % Low 15.0-55.0 [facility] [facility] TIBCOrdered By: Papi Hernandez on 05-16-2024 Total Iron Binding Capacity 401 ug/dL 250-450 [facility] Surgery Visit Reporton 05-10 Surgery Visit Report Normal [facility] Basic Metabolic Profile (BMP )on 05-07-2024 BUN/CRE 13.7 RATIO Normal -20 [facility] Comment on above: Performed By: #### L 100.0100, L500.2500 ####[facility] [address] [place], [address] CA,Total 9.5 mg/dL Normal 8.5-10.1 [facility] Comment on above: Performed By: #### L 100.0100, L500.2500 ####[facility] [address] [place], [address] Chloride [Moles/Vol] 103 mmol/L Normal 98-107 [facility] Comment on above: Performed By: #### L 100.0100, L500.2500 ####[facility] [address] [place], [address] CO2 [Moles/Vol] 25.0 mmol/L Normal 21.0-32.0 [facility] Comment on above: Performed By: #### L 100.0100, L500.2500 ####[facility] [address] [place], [address] Creatinine [Mass/Vol] 1.17 mg/dL Normal 0.70-1.30 [facility] Comment on above: Result Comment: The validity of the calculated GFR GFRAA in patients over70 years has not been determined. Clinical correlation isessential. Performed By: #### L 100.0100, L500.2500 ####[facility] [address] [place], [address] EST GFR - AA 77 mL/min Normal >60 [facility] Comment on above: Result Comment: Afri can Indian GFR Calc Performed By: #### L 100.0100, L500.2500 ####[facility] [address] [place], [address] GAP 7 Normal 5-15 [facility] Comment on above: Performed By: #### L 100.0100, L500.2500 ####[facility] [address] [place], [address] GFR/1.73 sq M.predicted among non-blacks MDRD (S/P/Bld) [Vol rate/Area] 64 mL/min/{1.73_m2} Normal >60 [facility] Comment on above: Result Comment: Non- GFR Calc Performed By: #### L 100.0100, L500.2500 ####[facility] [address] [place], [address] Glucose [Mass/Vol] 112 mg/dL High 74-106 [facility] Comment on above: Result Comment: Fast ing Glucose result from 100 to 125 mg/dLsuggests IMPAIRED HOMEOSTASIS per A.D.A. criteria. Performed By: #### L 100.0100, L500.2500 ####[facility] [address] [place], [address] Potassium [Moles/Vol] 4.6 mmol/L Normal 3.5-5.1 [facility] Comment on above: Performed By: #### L 100.0100, L500.2500 ####[facility] [address] [place], [address] Sodium [Moles/Vol] 135 mmol/L Low 136-145 [facility] Comment on above: Performed By: #### L 100.0100, L500.2500 ####[facility] [address] [place], [address] Urea nitrogen [Mass/Vol] 16 mg/dL Normal 7-18 [facility] Comment on above: Performed By: #### L 100.0100, L500.2500 ####[facility] [address] [place], [address] CBC W/Diff, Automatedon 10-0 7-2024 Absolute Lymph 1.28 X10 3/uL Normal 0.83-4.51 [facility] Comment on above: Performed By: #### L 100.0100, L500.2500 ####[facility] [address] [place], [address] Absolute Neut 3.6 X10 3/uL Normal 2.0-7.7 [facility] Comment on above: Performed By: #### L 100.0100, L500.2500 ####[facility] [address] [place], [address] Basophils/100 WBC (Bld) 0.4 % Normal 0-1 [facility] Comment on above: Performed By: #### L 100.0100, L500.2500 ####[facility] [address] [place], [address] Eosinophils/100 WBC (Bld) 1.8 % Normal 0-5 [facility] Comment on above: Performed By: #### L 100.0100, L500.2500 ####[facility] [address] [place], [address] Erythrocyte distribution width (RBC) [Ratio] 14.3 % Normal 11.6-14.6 [facility] Comment on above: Performed By: #### L 100.0100, L500.2500 ####[facility] [address] [place], [address] Hematocrit (Bld) [Volume fraction] 29.4 % Low 40-54 [facility] Comment on above: Performed By: #### L 100.0100, L500.2500 ####[facility] [address] [place], [address] Hemoglobin (Bld) [Mass/Vol] 8.8 g/dL Low 13.0-16.5 [facility] Comment on above: Performed By: #### L 100.0100, L500.2500 ####[facility] [address] [place], [address] IG% 0.500 Normal 0.0-0.9 [facility] Comment on above: Result Comment: IG% - Immature Granulocytes (promyelocytes, myelocytes andmetamyelocytes) > 1% indicates that a LEFT SHIFT is Present. Performed By: #### L 100.0100, L500.2500 ####[facility] [address] [place], [address] Lymphocytes/100 WBC (Bld) 23.0 % Normal 19-41 [facility] Comment on above: Performed By: #### L 100.0100, L500.2500 ####[facility] [address] [place], [address] MCH (RBC) [Entitic mass] 25.4 pg Low 27.0-32.0 [facility] Comment on above: Performed By: #### L 100.0100, L500.2500 ####[facility] [address] [place], [address] MCHC (RBC) [Mass/Vol] 29.9 g/dL Low 32-36 [facility] Comment on above: Performed By: #### L 100.0100, L500.2500 ####[facility] [address] [place], [address] MCV (RBC) [Entitic vol] 85.0 fL Normal 80-94 [facility] Comment on above: Performed By: #### L 100.0100, L500.2500 ####[facility] [address] [place], [address] Monocytes/100 WBC (Bld) 10.4 % High 0-10 [facility] Comment on above: Performed By: #### L 100.0100, L500.2500 ####[facility] [address] [place], [address] Neutrophils/100 WBC (Bld) 63.9 % Normal 47-70 [facility] Comment on above: Performed By: #### L 100.0100, L500.2500 ####[facility] [address] [place], [address] Nucleated RBC (Bld) [#/Vol] 0 10*3/uL Normal 0-5 [facility] Comment on above: Performed By: #### L 100.0100, L500.2500 ####[facility] [address] [place], [address] Platelet mean volume (Bld) [Entitic vol] 9.8 fL Normal 6.2-12.0 [facility] Comment on above: Performed By: #### L 100.0100, L500.2500 ####[facility] [address] [place], [address] Platelets (Bld) [#/Vol] 416 10*3/uL Normal 150-450 [facility] Comment on above: Performed By: #### L 100.0100, L500.2500 ####[facility] [address] [place], [address] RBC (Bld) [#/Vol] 3.46 10*6/uL Low 4.6-6.2 [facility] Comment on above: Performed By: #### L 100.0100, L500.2500 ####[facility] [address] [place], [address] RDW SD 44.5 fl High 35.1-43.9 [facility] Comment on above: Performed By: #### L 100.0100, L500.2500 ####[facility] [address] [place], [address] WBC (Bld) [#/Vol] 5.6 10*3/uL Normal 4.4-11.0 [facility] Comment on above: Performed By: #### L 100.0100, L500.2500 ####[facility] [address] [place], [address] Basic Metabolic Profile (BMP )on 05-01-2024 BUN/CRE 16.2 RATIO Normal 10-20 [facility] Comment on above: Performed By: #### L 100.0100, L500.2500 ####[facility] [address] [place], [address] CA,Total 9.3 mg/dL Normal 8.5-10.1 [facility] Comment on above: Performed By: #### L 100.0100, L500.2500 ####[facility] [address] [place], [address] Chloride [Moles/Vol] 96 mmol/L Low 98-107 [facility] Comment on above: Performed By: #### L 100.0100, L500.2500 ####[facility] [address] [place], [address] CO2 [Moles/Vol] 24.0 mmol/L Normal 21.0-32.0 [facility] Comment on above: Performed By: #### L 100.0100, L500.2500 ####[facility] [address] [place], [address] Creatinine [Mass/Vol] 1.30 mg/dL Normal 0.70-1.30 [facility] Comment on above: Result Comment: The validity of the calculated GFR GFRAA in patients over70 years has not been determined. Clinical correlation isessential. Performed By: #### L 100.0100, L500.2500 ####[facility] [address] [place], [address] ECRCL 42.37 ml/min Normal [facility] Comment on above: Performed By: #### L 100.0100, L500.2500 ####[facility] [address] [place], [address] EST GFR - AA 68 mL/min Normal >60 [facility] Comment on above: Result Comment: Afri can Indian GFR Calc Performed By: #### L 100.0100, L500.2500 ####[facility] [address] [place], [address] GAP 9 Normal 5-15 [facility] Comment on above: Performed By: #### L 100.0100, L500.2500 ####[facility] [address] [place], [address] GFR/1.73 sq M.predicted among non-blacks MDRD (S/P/Bld) [Vol rate/Area] 56 mL/min/{1.73_m2} Low >60 [facility] Comment on above: Result Comment: Non- GFR Calc Performed By: #### L 100.0100, L500.2500 ####[facility] [address] [place], [address] Glucose [Mass/Vol] 111 mg/dL High 74-106 [facility] Comment on above: Result Comment: Fast ing Glucose result from 100 to 125 mg/dLsuggests IMPAIRED HOMEOSTASIS per A.D.A. criteria. Performed By: #### L 100.0100, L500.2500 ####[facility] [address] [place], [address] Potassium [Moles/Vol] 4.2 mmol/L Normal 3.5-5.1 [facility] Comment on above: Performed By: #### L 100.0100, L500.2500 ####[facility] [address] [place], [address] Sodium [Moles/Vol] 128 mmol/L Low 136-145 [facility] Comment on above: Performed By: #### L 100.0100, L500.2500 ####[facility] [address] [place], [address] Urea nitrogen [Mass/Vol] 21 mg/dL High 7-18 [facility] Comment on above: Performed By: #### L 100.0100, L500.2500 ####[facility] [address] [place], [address] CBC W/Diff, Automatedon 10-0 Absolute Lymph 1.58 X10 3/uL Normal 0.83-4.51 [facility] Comment on above: Performed By: #### L 100.0100, L500.2500 ####[facility] [address] [place], [address] Absolute Neut 6.7 X10 3/uL Normal 2.0-7.7 [facility] Comment on above: Performed By: #### L 100.0100, L500.2500 ####[facility] [address] [place], [address] Basophils/100 WBC (Bld) 0.3 % Normal 0-1 [facility] Comment on above: Performed By: #### L 100.0100, L500.2500 ####[facility] [address] [place], [address] Eosinophils/100 WBC (Bld) 3.0 % Normal 0-5 [facility] Comment on above: Performed By: #### L 100.0100, L500.2500 ####[facility] [address] [place], [address] Erythrocyte distribution width (RBC) [Ratio] 14.2 % Normal 11.6-14.6 [facility] Comment on above: Performed By: #### L 100.0100, L500.2500 ####[facility] [address] [place], [address] Hematocrit (Bld) [Volume fraction] 30.5 % Low 40-54 [facility] Comment on above: Performed By: #### L 100.0100, L500.2500 ####[facility] [address] [place], [address] Hemoglobin (Bld) [Mass/Vol] 9.5 g/dL Low 13.0-16.5 [facility] Comment on above: Performed By: #### L 100.0100, L500.2500 ####[facility] [address] [place], [address] IG% 0.800 Normal 0.0-0.9 [facility] Comment on above: Result Comment: IG% - Immature Granulocytes (promyelocytes, myelocytes andmetamyelocytes) > 1% indicates that a LEFT SHIFT is Present. Performed By: #### L 100.0100, L500.2500 ####[facility] [address] [place], [address] Lymphocytes/100 WBC (Bld) 16.4 % Low 19-41 [facility] Comment on above: Performed By: #### L 100.0100, L500.2500 ####[facility] [address] [place], [address] MCH (RBC) [Entitic mass] 25.7 pg Low 27.0-32.0 [facility] Comment on above: Performed By: #### L 100.0100, L500.2500 ####[facility] [address] [place], [address] MCHC (RBC) [Mass/Vol] 31.1 g/dL Low 32-36 [facility] Comment on above: Performed By: #### L 100.0100, L500.2500 ####[facility] [address] [place], [address] MCV (RBC) [Entitic vol] 82.4 fL Normal 80-94 [facility] Comment on above: Performed By: #### L 100.0100, L500.2500 ####[facility] [address] [place], [address] Monocytes/100 WBC (Bld) 9.7 % Normal 0-10 [facility] Comment on above: Performed By: #### L 100.0100, L500.2500 ####[facility] [address] [place], [address] Neutrophils/100 WBC (Bld) 69.8 % Normal 47-70 [facility] Comment on above: Performed By: #### L 100.0100, L500.2500 ####[facility] [address] [place], [address] Nucleated RBC (Bld) [#/Vol] 0 10*3/uL Normal 0-5 [facility] Comment on above: Performed By: #### L 100.0100, L500.2500 ####[facility] [address] [place], [address] Platelet mean volume (Bld) [Entitic vol] 9.7 fL Normal 6.2-12.0 [facility] Comment on above: Performed By: #### L 100.0100, L500.2500 ####[facility] [address] [place], [address] Platelets (Bld) [#/Vol] 440 10*3/uL Normal 150-450 [facility] Comment on above: Performed By: #### L 100.0100, L500.2500 ####[facility] [address] [place], [address] RBC (Bld) [#/Vol] 3.70 10*6/uL Low 4.6-6.2 [facility] Comment on above: Performed By: #### L 100.0100, L500.2500 ####[facility] [address] [place], [address] RDW SD 42.2 fl Normal 35.1-43.9 [facility] Comment on above: Performed By: #### L 100.0100, L500.2500 ####[facility] [address] [place], [address] WBC (Bld) [#/Vol] 9.7 10*3/uL Normal 4.4-11.0 [facility] Comment on above: Performed By: #### L 100.0100, L500.2500 ####[facility] [address] [place], [address] Basic Metabolic Profile (BMP )on 04-30-2024 BUN/CRE 15.6 RATIO Normal 10-20 [facility] Comment on above: Performed By: #### L 100.0100, L500.2500 ####[facility] [address] [place], [address] CA,Total 9.0 mg/dL Normal 8.5-10.1 [facility] Comment on above: Performed By: #### L 100.0100, L500.2500 ####[facility] [address] [place], [address] Chloride [Moles/Vol] 101 mmol/L Normal 98-107 [facility] Comment on above: Performed By: #### L 100.0100, L500.2500 ####[facility] [address] [place], [address] CO2 [Moles/Vol] 24.0 mmol/L Normal 21.0-32.0 [facility] Comment on above: Performed By: #### L 100.0100, L500.2500 ####[facility] [address] [place], [address] Creatinine [Mass/Vol] 1.09 mg/dL Normal 0.70-1.30 [facility] Comment on above: Result Comment: The validity of the calculated GFR GFRAA in patients over70 years has not been determined. Clinical correlation isessential. Performed By: #### L 100.0100, L500.2500 ####[facility] [address] [place], [address] ECRCL 50.54 ml/min Normal [facility] Comment on above: Performed By: #### L 100.0100, L500.2500 ####[facility] [address] [place], [address] EST GFR - AA 84 mL/min Normal >60 [facility] Comment on above: Result Comment: Afri can Indian GFR Calc Performed By: #### L 100.0100, L500.2500 ####[facility] [address] [place], [address] GAP 9 Normal 5-15 [facility] Comment on above: Performed By: #### L 100.0100, L500.2500 ####[facility] [address] [place], [address] GFR/1.73 sq M.predicted among non-blacks MDRD (S/P/Bld) [Vol rate/Area] 69 mL/min/{1.73_m2} Normal >60 [facility] Comment on above: Result Comment: Non- GFR Calc Performed By: #### L 100.0100, L500.2500 ####[facility] [address] [place], [address] Glucose [Mass/Vol] 104 mg/dL Normal 74-106 [facility] Comment on above: Result Comment: Fast ing Glucose result from 100 to 125 mg/dLsuggests IMPAIRED HOMEOSTASIS per A.D.A. criteria. Performed By: #### L 100.0100, L500.2500 ####[facility] [address] [place], [address] Potassium [Moles/Vol] 4.0 mmol/L Normal 3.5-5.1 [facility] Comment on above: Performed By: #### L 100.0100, L500.2500 ####[facility] [address] [place], [address] Sodium [Moles/Vol] 134 mmol/L Low 136-145 [facility] Comment on above: Performed By: #### L 100.0100, L500.2500 ####[facility] [address] [place], [address] Urea nitrogen [Mass/Vol] 17 mg/dL Normal 7-18 [facility] Comment on above: Performed By: #### L 100.0100, L500.2500 ####[facility] [address] [place], [address] CBC W/Diff, Automatedon 09-3 0-2024 Absolute Lymph 1.45 X10 3/uL Normal 0.83-4.51 [facility] Comment on above: Performed By: #### L 100.0100, L500.2500 ####[facility] [address] [place], [address] Absolute Neut 5.7 X10 3/uL Normal 2.0-7.7 [facility] Comment on above: Performed By: #### L 100.0100, L500.2500 ####[facility] [address] [place], [address] Basophils/100 WBC (Bld) 0.1 % Normal 0-1 [facility] Comment on above: Performed By: #### L 100.0100, L500.2500 ####[facility] [address] [place], [address] Eosinophils/100 WBC (Bld) 1.3 % Normal 0-5 [facility] Comment on above: Performed By: #### L 100.0100, L500.2500 ####[facility] [address] [place], [address] Erythrocyte distribution width (RBC) [Ratio] 14.0 % Normal 11.6-14.6 [facility] Comment on above: Performed By: #### L 100.0100, L500.2500 ####[facility] [address] [place], [address] Hematocrit (Bld) [Volume fraction] 28.7 % Low 40-54 [facility] Comment on above: Performed By: #### L 100.0100, L500.2500 ####[facility] [address] [place], [address] Hemoglobin (Bld) [Mass/Vol] 9.1 g/dL Low 13.0-16.5 [facility] Comment on above: Performed By: #### L 100.0100, L500.2500 ####[facility] [address] [place], [address] IG% 0.600 Normal 0.0-0.9 [facility] Comment on above: Result Comment: IG% - Immature Granulocytes (promyelocytes, myelocytes andmetamyelocytes) > 1% indicates that a LEFT SHIFT is Present. Performed By: #### L 100.0100, L500.2500 ####[facility] [address] [place], [address] Lymphocytes/100 WBC (Bld) 17.6 % Low 19-41 [facility] Comment on above: Performed By: #### L 100.0100, L500.2500 ####[facility] [address] [place], [address] MCH (RBC) [Entitic mass] 26.0 pg Low 27.0-32.0 [facility] Comment on above: Performed By: #### L 100.0100, L500.2500 ####[facility] [address] [place], [address] MCHC (RBC) [Mass/Vol] 31.7 g/dL Low 32-36 [facility] Comment on above: Performed By: #### L 100.0100, L500.2500 ####[facility] [address] [place], [address] MCV (RBC) [Entitic vol] 82.0 fL Normal 80-94 [facility] Comment on above: Performed By: #### L 100.0100, L500.2500 ####[facility] [address] [place], [address] Monocytes/100 WBC (Bld) 11.8 % High 0-10 [facility] Comment on above: Performed By: #### L 100.0100, L500.2500 ####[facility] [address] [place], [address] Neutrophils/100 WBC (Bld) 68.6 % Normal 47-70 [facility] Comment on above: Performed By: #### L 100.0100, L500.2500 ####[facility] [address] [place], [address] Nucleated RBC (Bld) [#/Vol] 0 10*3/uL Normal 0-5 [facility] Comment on above: Performed By: #### L 100.0100, L500.2500 ####[facility] [address] [place], [address] Platelet mean volume (Bld) [Entitic vol] 9.7 fL Normal 6.2-12.0 [facility] Comment on above: Performed By: #### L 100.0100, L500.2500 ####[facility] [address] [place], [address] Platelets (Bld) [#/Vol] 360 10*3/uL Normal 150-450 [facility] Comment on above: Performed By: #### L 100.0100, L500.2500 ####[facility] [address] [place], [address] RBC (Bld) [#/Vol] 3.50 10*6/uL Low 4.6-6.2 [facility] Comment on above: Performed By: #### L 100.0100, L500.2500 ####[facility] [address] [place], [address] RDW SD 41.8 fl Normal 35.1-43.9 [facility] Comment on above: Performed By: #### L 100.0100, L500.2500 ####[facility] [address] [place], [address] WBC (Bld) [#/Vol] 8.2 10*3/uL Normal 4.4-11.0 [facility] Comment on above: Performed By: #### L 100.0100, L500.2500 ####[facility] [address] [place], [address] Basic Metabolic Profile (BMP )on 04-29-2024 BUN/CRE 13.0 RATIO Normal 10-20 [facility] Comment on above: Performed By: #### L 100.0100, L500.2500 ####[facility] [address] [place], [address] CA,Total 9.1 mg/dL Normal 8.5-10.1 [facility] Comment on above: Performed By: #### L 100.0100, L500.2500 ####[facility] [address] [place], [address] Chloride [Moles/Vol] 101 mmol/L Normal 98-107 [facility] Comment on above: Performed By: #### L 100.0100, L500.2500 ####[facility] [address] [place], [address] CO2 [Moles/Vol] 26.0 mmol/L Normal 21.0-32.0 [facility] Comment on above: Performed By: #### L 100.0100, L500.2500 ####[facility] [address] [place], [address] Creatinine [Mass/Vol] 1.08 mg/dL Normal 0.70-1.30 [facility] Comment on above: Result Comment: The validity of the calculated GFR GFRAA in patients over70 years has not been determined. Clinical correlation isessential. Performed By: #### L 100.0100, L500.2500 ####[facility] [address] [place], [address] ECRCL 51.00 ml/min Normal [facility] Comment on above: Performed By: #### L 100.0100, L500.2500 ####[facility] [address] [place], [address] EST GFR - AA 85 mL/min Normal >60 [facility] Comment on above: Result Comment: Afri can Indian GFR Calc Performed By: #### L 100.0100, L500.2500 ####[facility] [facility] [address] [place], [address] GAP 6 Normal 5-15 [facility] Comment on above: Performed By: #### L 100.0100, L500.2500 ####[facility] [address] [place], [address] GFR/1.73 sq M.predicted among non-blacks MDRD (S/P/Bld) [Vol rate/Area] 70 mL/min/{1.73_m2} Normal >60 [facility] Comment on above: Result Comment: Non- GFR Calc Performed By: #### L 100.0100, L500.2500 ####[facility] [address] [place], [address] Glucose [Mass/Vol] 109 mg/dL High 74-106 [facility] Comment on above: Result Comment: Fast ing Glucose result from 100 to 125 mg/dLsuggests IMPAIRED HOMEOSTASIS per A.D.A. criteria. Performed By: #### L 100.0100, L500.2500 ####[facility] [address] [place], [address] Potassium [Moles/Vol] 4.1 mmol/L Normal 3.5-5.1 [facility] Comment on above: Performed By: #### L 100.0100, L500.2500 ####[facility] [address] [place], [address] Sodium [Moles/Vol] 133 mmol/L Low 136-145 [facility] Comment on above: Performed By: #### L 100.0100, L500.2500 ####[facility] [address] [place], [address] Urea nitrogen [Mass/Vol] 14 mg/dL Normal 7-18 [facility] Comment on above: Performed By: #### L 100.0100, L500.2500 ####[facility] [address] [place], [address] CBC W/Diff, Automatedon 09-2 Absolute Lymph 1.60 X10 3/uL Normal 0.83-4.51 [facility] Comment on above: Performed By: #### L 100.0100, L500.2500 ####[facility] [address] [place], [address] Absolute Neut 6.7 X10 3/uL Normal 2.0-7.7 [facility] Comment on above: Performed By: #### L 100.0100, L500.2500 ####[facility] [address] [place], [address] Basophils/100 WBC (Bld) 0.1 % Normal 0-1 [facility] Comment on above: Performed By: #### L 100.0100, L500.2500 ####[facility] [address] [place], [address] Eosinophils/100 WBC (Bld) 0.3 % Normal 0-5 [facility] Comment on above: Performed By: #### L 100.0100, L500.2500 ####[facility] [address] [place], [address] Erythrocyte distribution width (RBC) [Ratio] 14.0 % Normal 11.6-14.6 [facility] Comment on above: Performed By: #### L 100.0100, L500.2500 ####[facility] [address] [place], [address] Hematocrit (Bld) [Volume fraction] 27.6 % Low 40-54 [facility] Comment on above: Performed By: #### L 100.0100, L500.2500 ####[facility] [address] [place], [address] Hemoglobin (Bld) [Mass/Vol] 8.6 g/dL Low 13.0-16.5 [facility] Comment on above: Performed By: #### L 100.0100, L500.2500 ####[facility] [address] [place], [address] IG% 0.500 Normal 0.0-0.9 [facility] Comment on above: Result Comment: IG% - Immature Granulocytes (promyelocytes, myelocytes andmetamyelocytes) > 1% indicates that a LEFT SHIFT is Present. Performed By: #### L 100.0100, L500.2500 ####[facility] [address] [place], [address] Lymphocytes/100 WBC (Bld) 17.1 % Low 19-41 [facility] Comment on above: Performed By: #### L 100.0100, L500.2500 ####[facility] [address] [place], [address] MCH (RBC) [Entitic mass] 26.2 pg Low 27.0-32.0 [facility] Comment on above: Performed By: #### L 100.0100, L500.2500 ####[facility] [address] [place], [address] MCHC (RBC) [Mass/Vol] 31.2 g/dL Low 32-36 [facility] Comment on above: Performed By: #### L 100.0100, L500.2500 ####[facility] [address] [place], [address] MCV (RBC) [Entitic vol] 84.1 fL Normal 80-94 [facility] Comment on above: Performed By: #### L 100.0100, L500.2500 ####[facility] [address] [place], [address] Monocytes/100 WBC (Bld) 10.0 % Normal 0-10 [facility] Comment on above: Performed By: #### L 100.0100, L500.2500 ####[facility] [address] [place], [address] Neutrophils/100 WBC (Bld) 72.0 % High 47-70 [facility] Comment on above: Performed By: #### L 100.0100, L500.2500 ####[facility] [address] [place], [address] Nucleated RBC (Bld) [#/Vol] 0 10*3/uL Normal 0-5 [facility] Comment on above: Performed By: #### L 100.0100, L500.2500 ####[facility] [address] [place], [address] Platelet mean volume (Bld) [Entitic vol] 9.8 fL Normal 6.2-12.0 [facility] Comment on above: Performed By: #### L 100.0100, L500.2500 ####[facility] [address] [place], [address] Platelets (Bld) [#/Vol] 345 10*3/uL Normal 150-450 [facility] Comment on above: Performed By: #### L 100.0100, L500.2500 ####[facility] [address] [place], [address] RBC (Bld) [#/Vol] 3.28 10*6/uL Low 4.6-6.2 [facility] Comment on above: Performed By: #### L 100.0100, L500.2500 ####[facility] [address] [place], [address] RDW SD 42.7 fl Normal 35.1-43.9 [facility] Comment on above: Performed By: #### L 100.0100, L500.2500 ####[facility] [address] [place], [address] WBC (Bld) [#/Vol] 9.4 10*3/uL Normal 4.4-11.0 [facility] Comment on above: Performed By: #### L 100.0100, L500.2500 ####[facility] [address] [place], [address] Basic Metabolic Profile (BMP )on 04-28-2024 BUN/CRE 13.7 RATIO Normal 10-20 [facility] Comment on above: Performed By: #### L 100.0500, L500.2500 ####[facility] [address] [place], [address] CA,Total 8.2 mg/dL Low 8.5-10.1 [facility] Comment on above: Performed By: #### L 100.0500, L500.2500 ####[facility] [address] [place], [address] Chloride [Moles/Vol] 101 mmol/L Normal 98-107 [facility] Comment on above: Performed By: #### L 100.0500, L500.2500 ####[facility] [address] [place], [address] CO2 [Moles/Vol] 26.0 mmol/L Normal 21.0-32.0 [facility] Comment on above: Performed By: #### L 100.0500, L500.2500 ####[facility] [address] [place], [address] Creatinine [Mass/Vol] 1.31 mg/dL High 0.70-1.30 [facility] Comment on above: Result Comment: The validity of the calculated GFR GFRAA in patients over70 years has not been determined. Clinical correlation isessential. Performed By: #### L 100.0500, L500.2500 ####[facility] [address] [place], [address] ECRCL 42.05 ml/min Normal [facility] Comment on above: Performed By: #### L 100.0500, L500.2500 ####[facility] [address] [place], [address] EST GFR - AA 68 mL/min Normal >60 [facility] Comment on above: Result Comment: Afri can Indian GFR Calc Performed By: #### L 100.0500, L500.2500 ####[facility] [address] [place], [address] GAP 4 Low 5-15 [facility] Comment on above: Performed By: #### L 100.0500, L500.2500 ####[facility] [address] [place], [address] GFR/1.73 sq M.predicted among non-blacks MDRD (S/P/Bld) [Vol rate/Area] 56 mL/min/{1.73_m2} Low >60 [facility] Comment on above: Result Comment: Non- GFR Calc Performed By: #### L 100.0500, L500.2500 ####[facility] [address] [place], [address] Glucose [Mass/Vol] 130 mg/dL High 74-106 [facility] Comment on above: Result Comment: Fast ing Glucose result greater than or equal to 126 mg/dLsuggests DIABETES MELLITUS per A.D.A. criteria. Performed By: #### L 100.0500, L500.2500 ####[facility] [address] [place], [address] Potassium [Moles/Vol] 4.4 mmol/L Normal 3.5-5.1 [facility] Comment on above: Performed By: #### L 100.0500, L500.2500 ####[facility] [address] [place], [address] Sodium [Moles/Vol] 131 mmol/L Low 136-145 [facility] Comment on above: Performed By: #### L 100.0500, L500.2500 ####[facility] [address] [place], [address] Urea nitrogen [Mass/Vol] 18 mg/dL Normal 7-18 [facility] Comment on above: Performed By: #### L 100.0500, L500.2500 ####[facility] [address] [place], [address] CBC-Complete Blood Cnt No Di ffon 04-28-2024 Erythrocyte distribution width (RBC) [Ratio] 14.0 % Normal 11.6-14.6 [facility] Comment on above: Performed By: #### L 100.0500, L500.2500 ####[facility] [address] [place], [address] Hematocrit (Bld) [Volume fraction] 26.3 % Low 40-54 [facility] Comment on above: Performed By: #### L 100.0500, L500.2500 ####[facility] [address] [place], [address] Hemoglobin (Bld) [Mass/Vol] 8.1 g/dL Low 13.0-16.5 [facility] Comment on above: Performed By: #### L 100.0500, L500.2500 ####[facility] [address] [place], [address] MCH (RBC) [Entitic mass] 26.1 pg Low 27.0-32.0 [facility] Comment on above: Performed By: #### L 100.0500, L500.2500 ####[facility] [address] [place], [address] MCHC (RBC) [Mass/Vol] 30.8 g/dL Low 32-36 [facility] Comment on above: Performed By: #### L 100.0500, L500.2500 ####[facility] [address] [place], [address] MCV (RBC) [Entitic vol] 84.8 fL Normal 80-94 [facility] Comment on above: Performed By: #### L 100.0500, L500.2500 ####[facility] [address] [place], [address] Platelet mean volume (Bld) [Entitic vol] 10.2 fL Normal 6.2-12.0 [facility] Comment on above: Performed By: #### L 100.0500, L500.2500 ####[facility] [address] [place], [address] Platelets (Bld) [#/Vol] 296 10*3/uL Normal 150-450 [facility] Comment on above: Performed By: #### L 100.0500, L500.2500 ####[facility] [address] [place], [address] RBC (Bld) [#/Vol] 3.10 10*6/uL Low 4.6-6.2 [facility] Comment on above: Performed By: #### L 100.0500, L500.2500 ####[facility] [address] [place], [address] RDW SD 43.3 fl Normal 35.1-43.9 [facility] Comment on above: Performed By: #### L 100.0500, L500.2500 ####[facility] [address] [place], [address] WBC (Bld) [#/Vol] 9.1 10*3/uL Normal 4.4-11.0 [facility] Comment on above: Performed By: #### L 100.0500, L500.2500 ####[facility] [address] [place], [address] Bedside Glucoseon 04-27-2024 FINGERSTICK GLU 113 mg/dL High 74-106 [facility] Comment on above: Result Comment: STELLA FLORES OF PATIENT CARE PER NURSING PROTOCOL Performed By: #### L 501.080 ####[facility] [address] [place], [address] CBC-Complete Blood Cnt No Di ffon 04-27-2024 Erythrocyte distribution width (RBC) [Ratio] 13.7 % Normal 11.6-14.6 [facility] Comment on above: Performed By: #### L 100.0500 ####[facility] [address] [place], [address] Hematocrit (Bld) [Volume fraction] 30.5 % Low 40-54 [facility] Comment on above: Performed By: #### L 100.0500 ####[facility] [address] [place], [address] Hemoglobin (Bld) [Mass/Vol] 9.4 g/dL Low 13.0-16.5 [facility] Comment on above: Performed By: #### L 100.0500 ####[facility] [address] [place], [address] MCH (RBC) [Entitic mass] 26.0 pg Low 27.0-32.0 [facility] Comment on above: Performed By: #### L 100.0500 ####[facility] [address] [place], [address] MCHC (RBC) [Mass/Vol] 30.8 g/dL Low 32-36 [facility] Comment on above: Performed By: #### L 100.0500 ####[facility] [address] [place], [address] MCV (RBC) [Entitic vol] 84.3 fL Normal 80-94 [facility] Comment on above: Performed By: #### L 100.0500 ####[facility] [address] [place], [address] Platelet mean volume (Bld) [Entitic vol] 9.7 fL Normal 6.2-12.0 [facility] Comment on above: Performed By: #### L 100.0500 ####[facility] [address] [place], [address] Platelets (Bld) [#/Vol] 346 10*3/uL Normal 150-450 [facility] Comment on above: Performed By: #### L 100.0500 ####[facility] [address] [place], [address] RBC (Bld) [#/Vol] 3.62 10*6/uL Low 4.6-6.2 [facility] Comment on above: Performed By: #### L 100.0500 ####[facility] [address] [place], [address] RDW SD 42.4 fl Normal 35.1-43.9 [facility] Comment on above: Performed By: #### L 100.0500 ####[facility] [address] [place], [address] WBC (Bld) [#/Vol] 7.1 10*3/uL Normal 4.4-11.0 [facility] Comment on above: Performed By: #### L 100.0500 ####[facility] [address] [place], [address] MLH-1 (add)on 04-27-2024 MLH-1 (add) Normal [facility] Comment on above: Performed By: #### P MLH1. ####[facility] [address] [place], [address] MR/POSTOP.ANEon 04-27-2024 MR/POSTOP.ANE Normal [facility] MR/BSBBKEAA3lz 04-27-2024 MR/POSTOPAN2 Normal [facility] Magnesiumon 04-27-2024 Magnesium [Mass/Vol] 1.9 mg/dL Normal 1.6-2.6 [facility] Comment on above: Performed By: #### L 244.5207 ####[facility] [address] [place], [address] Operative Reporton Operative Report Normal [facility] Surgery Specimen Level VIon 04-27-2024 Surgery Specimen Level Normal [facility] Comment on above: Performed By: #### P SUVI ####[facility] [address] [place], [address] Cardiology Visit Reporton Cardiology Visit Report Normal [facility] Surgery Visit Reporton 04-20 Surgery Visit Report Normal [facility] CBC W/Diff, Automatedon 09- Absolute Lymph 1.42 X10 3/uL Normal 0.83-4.51 [facility] Comment on above: Performed By: #### L 100.0100 ####[facility] [address] [place], [address] Absolute Neut 3.1 X10 3/uL Normal 2.0-7.7 [facility] Comment on above: Performed By: #### L 100.0100 ####[facility] [address] [place], [address] Basophils/100 WBC (Bld) 0.5 % Normal 0-1 [facility] Comment on above: Performed By: #### L 100.0100 ####[facility] [address] [place], [address] Eosinophils/100 WBC (Bld) 5.9 % High 0-5 [facility] Comment on above: Performed By: #### L 100.0100 ####[facility] [address] [place], [address] Erythrocyte distribution width (RBC) [Ratio] 13.4 % Normal 11.6-14.6 [facility] Comment on above: Performed By: #### L 100.0100 ####[facility] [address] [place], [address] Hematocrit (Bld) [Volume fraction] 30.5 % Low 40-54 [facility] Comment on above: Performed By: #### L 100.0100 ####[facility] [address] [place], [address] Hemoglobin (Bld) [Mass/Vol] 9.3 g/dL Low 13.0-16.5 [facility] Comment on above: Performed By: #### L 100.0100 ####[facility] [address] [place], [address] IG% 0.200 Normal 0.0-0.9 [facility] Comment on above: Result Comment: IG% - Immature Granulocytes (promyelocytes, myelocytes andmetamyelocytes) > 1% indicates that a LEFT SHIFT is Present. Performed By: #### L 100.0100 ####[facility] [address] [place], [address] Lymphocytes/100 WBC (Bld) 25.6 % Normal 19-41 [facility] Comment on above: Performed By: #### L 100.0100 ####[facility] [address] [place], [address] MCH (RBC) [Entitic mass] 26.2 pg Low 27.0-32.0 [facility] Comment on above: Performed By: #### L 100.0100 ####[facility] [address] [place], [address] MCHC (RBC) [Mass/Vol] 30.5 g/dL Low 32-36 [facility] Comment on above: Performed By: #### L 100.0100 ####[facility] [address] [place], [address] MCV (RBC) [Entitic vol] 85.9 fL Normal 80-94 [facility] Comment on above: Performed By: #### L 100.0100 ####[facility] [address] [place], [address] Monocytes/100 WBC (Bld) 12.1 % High 0-10 [facility] Comment on above: Performed By: #### L 100.0100 ####[facility] [address] [place], [address] Neutrophils/100 WBC (Bld) 55.7 % Normal 47-70 [facility] Comment on above: Performed By: #### L 100.0100 ####[facility] [address] [place], [address] Nucleated RBC (Bld) [#/Vol] 0 10*3/uL Normal 0-5 [facility] Comment on above: Performed By: #### L 100.0100 ####[facility] [address] [place], [address] Platelet mean volume (Bld) [Entitic vol] 9.3 fL Normal 6.2-12.0 [facility] Comment on above: Performed By: #### L 100.0100 ####[facility] [address] [place], [address] Platelets (Bld) [#/Vol] 303 10*3/uL Normal 150-450 [facility] Comment on above: Performed By: #### L 100.0100 ####[facility] [address] [place], [address] RBC (Bld) [#/Vol] 3.55 10*6/uL Low 4.6-6.2 [facility] Comment on above: Performed By: #### L 100.0100 ####[facility] [address] [place], [address] RDW SD 42.2 fl Normal 35.1-43.9 [facility] Comment on above: Performed By: #### L 100.0100 ####[facility] [address] [place], [address] WBC (Bld) [#/Vol] 5.6 10*3/uL Normal 4.4-11.0 [facility] Comment on above: Performed By: #### L 100.0100 ####[facility] [address] [place], [address] Basic Metabolic Profile (BMP )on 04-14-2024 BUN/CRE 13.0 RATIO Normal 10-20 [facility] Comment on above: Performed By: #### L 100.0100, L500.2500 ####[facility] [address] [place], [address] CA,Total 8.1 mg/dL Low 8.5-10.1 [facility] Comment on above: Performed By: #### L 100.0100, L500.2500 ####[facility] [address] [place], [address] Chloride [Moles/Vol] 108 mmol/L High 98-107 [facility] Comment on above: Performed By: #### L 100.0100, L500.2500 ####[facility] [address] [place], [address] CO2 [Moles/Vol] 23.0 mmol/L Normal 21.0-32.0 [facility] Comment on above: Performed By: #### L 100.0100, L500.2500 ####[facility] [address] [place], [address] Creatinine [Mass/Vol] 1.23 mg/dL Normal 0.70-1.30 [facility] Comment on above: Result Comment: The validity of the calculated GFR GFRAA in patients over70 years has not been determined. Clinical correlation isessential. Performed By: #### L 100.0100, L500.2500 ####[facility] [address] [place], [address] ECRCL 44.78 ml/min Normal [facility] Comment on above: Performed By: #### L 100.0100, L500.2500 ####[facility] [address] [place], [address] EST GFR - AA 73 mL/min Normal >60 [facility] Comment on above: Result Comment: Afri can Indian GFR Calc Performed By: #### L 100.0100, L500.2500 ####[facility] [address] [place], [address] GAP 7 Normal 5-15 [facility] Comment on above: Performed By: #### L 100.0100, L500.2500 ####[facility] [address] [place], [address] GFR/1.73 sq M.predicted among non-blacks MDRD (S/P/Bld) [Vol rate/Area] 60 mL/min/{1.73_m2} Normal >60 [facility] Comment on above: Result Comment: Non- GFR Calc Performed By: #### L 100.0100, L500.2500 ####[facility] [address] [place], [address] Glucose [Mass/Vol] 105 mg/dL Normal 74-106 [facility] Comment on above: Result Comment: Fast ing Glucose result from 100 to 125 mg/dLsuggests IMPAIRED HOMEOSTASIS per A.D.A. criteria. Performed By: #### L 100.0100, L500.2500 ####[facility] [address] [place], [address] Potassium [Moles/Vol] 3.4 mmol/L Low 3.5-5.1 [facility] Comment on above: Performed By: #### L 100.0100, L500.2500 ####[facility] [address] [place], [address] Sodium [Moles/Vol] 138 mmol/L Normal 136-145 [facility] Comment on above: Performed By: #### L 100.0100, L500.2500 ####[facility] [address] [place], [address] Urea nitrogen [Mass/Vol] 16 mg/dL Normal 7-18 [facility] Comment on above: Performed By: #### L 100.0100, L500.2500 ####[facility] [address] [place], [address] CBC W/Diff, Automatedon 04-01 Absolute Lymph 1.52 X10 3/uL Normal 0.83-4.51 [facility] Comment on above: Performed By: #### L 100.0100, L500.2500 ####[facility] [address] [place], [address] Absolute Neut 4.8 X10 3/uL Normal 2.0-7.7 [facility] Comment on above: Performed By: #### L 100.0100, L500.2500 ####[facility] [address] [place], [address] Basophils/100 WBC (Bld) 0.1 % Normal 0-1 [facility] Comment on above: Performed By: #### L 100.0100, L500.2500 ####[facility] [address] [place], [address] Eosinophils/100 WBC (Bld) 3.4 % Normal 0-5 [facility] Comment on above: Performed By: #### L 100.0100, L500.2500 ####[facility] [address] [place], [address] Erythrocyte distribution width (RBC) [Ratio] 13.4 % Normal 11.6-14.6 [facility] Comment on above: Performed By: #### L 100.0100, L500.2500 ####[facility] [address] [place], [address] Hematocrit (Bld) [Volume fraction] 30.9 % Low 40-54 [facility] Comment on above: Performed By: #### L 100.0100, L500.2500 ####[facility] [address] [place], [address] Hemoglobin (Bld) [Mass/Vol] 9.5 g/dL Low 13.0-16.5 [facility] Comment on above: Performed By: #### L 100.0100, L500.2500 ####[facility] [address] [place], [address] IG% 0.300 Normal 0.0-0.9 [facility] Comment on above: Result Comment: IG% - Immature Granulocytes (promyelocytes, myelocytes andmetamyelocytes) > 1% indicates that a LEFT SHIFT is Present. Performed By: #### L 100.0100, L500.2500 ####[facility] [address] [place], [address] Lymphocytes/100 WBC (Bld) 20.1 % Normal 19-41 [facility] Comment on above: Performed By: #### L 100.0100, L500.2500 ####[facility] [address] [place], [address] MCH (RBC) [Entitic mass] 26.2 pg Low 27.0-32.0 [facility] Comment on above: Performed By: #### L 100.0100, L500.2500 ####[facility] [address] [place], [address] MCHC (RBC) [Mass/Vol] 30.7 g/dL Low 32-36 [facility] Comment on above: Performed By: #### L 100.0100, L500.2500 ####[facility] [address] [place], [address] MCV (RBC) [Entitic vol] 85.4 fL Normal 80-94 [facility] Comment on above: Performed By: #### L 100.0100, L500.2500 ####[facility] [address] [place], [address] Monocytes/100 WBC (Bld) 12.2 % High 0-10 [facility] Comment on above: Performed By: #### L 100.0100, L500.2500 ####[facility] [address], [address] Neutrophils/100 WBC (Bld) 63.9 % Normal 47-70 [facility] Comment on above: Performed By: #### L 100.0100, L500.2500 ####[facility] [address] [place], [address] Nucleated RBC (Bld) [#/Vol] 0 10*3/uL Normal 0-5 [facility] Comment on above: Performed By: #### L 100.0100, L500.2500 ####[facility] [address] [place], [address] Platelet mean volume (Bld) [Entitic vol] 9.4 fL Normal 6.2-12.0 [facility] Comment on above: Performed By: #### L 100.0100, L500.2500 ####[facility] [address] [place], [address] Platelets (Bld) [#/Vol] 321 10*3/uL Normal 150-450 [facility] Comment on above: Performed By: #### L 100.0100, L500.2500 ####[facility] [address] [place], [address] RBC (Bld) [#/Vol] 3.62 10*6/uL Low 4.6-6.2 [facility] Comment on above: Performed By: #### L 100.0100, L500.2500 ####[facility] [address] [place], [address] RDW SD 42.0 fl Normal 35.1-43.9 [facility] Comment on above: Performed By: #### L 100.0100, L500.2500 ####[facility] [address] [place], [address] WBC (Bld) [#/Vol] 7.6 10*3/uL Normal 4.4-11.0 [facility] Comment on above: Performed By: #### L 100.0100, L500.2500 ####[facility] [address] [place], [address] MR/PN.GIon 04-14-2024 MR/PN.GI Normal [facility] Basic Metabolic Profile (BMP )on 04-13-2024 BUN/CRE 12.6 RATIO Normal 10-20 [facility] Comment on above: Performed By: #### L 100.0100, L500.2500 ####[facility] [address] [place], [address] CA,Total 8.9 mg/dL Normal 8.5-10.1 [facility] Comment on above: Performed By: #### L 100.0100, L500.2500 ####[facility] [address] [place], [address] Chloride [Moles/Vol] 106 mmol/L Normal 98-107 [facility] Comment on above: Performed By: #### L 100.0100, L500.2500 ####[facility] [address] [place], [address] CO2 [Moles/Vol] 24.0 mmol/L Normal 21.0-32.0 [facility] Comment on above: Performed By: #### L 100.0100, L500.2500 ####[facility] [address], [address] Creatinine [Mass/Vol] 1.19 mg/dL Normal 0.70-1.30 [facility] Comment on above: Result Comment: The validity of the calculated GFR GFRAA in patients over70 years has not been determined. Clinical correlation isessential. Performed By: #### L 100.0100, L500.2500 ####[facility] [address] [place], [address] ECRCL 46.29 ml/min Normal [facility] Comment on above: Performed By: #### L 100.0100, L500.2500 ####[facility] [address] [place], [address] EST GFR - AA 76 mL/min Normal >60 [facility] Comment on above: Result Comment: Afri can Indian GFR Calc Performed By: #### L 100.0100, L500.2500 ####[facility] [address] [place], [address] GAP 8 Normal 5-15 [facility] Comment on above: Performed By: #### L 100.0100, L500.2500 ####[facility] [address] [place], [address] GFR/1.73 sq M.predicted among non-blacks MDRD (S/P/Bld) [Vol rate/Area] 63 mL/min/{1.73_m2} Normal >60 [facility] Comment on above: Result Comment: Non- GFR Calc Performed By: #### L 100.0100, L500.2500 ####[facility] [address] [place], [address] Glucose [Mass/Vol] 99 mg/dL Normal 74-106 [facility] Comment on above: Performed By: #### L 100.0100, L500.2500 ####[facility] [address] [place], [address] Potassium [Moles/Vol] 3.6 mmol/L Normal 3.5-5.1 [facility] Comment on above: Performed By: #### L 100.0100, L500.2500 ####[facility] [address] [place], [address] Sodium [Moles/Vol] 138 mmol/L Normal 136-145 [facility] Comment on above: Performed By: #### L 100.0100, L500.2500 ####[facility] [address] [place], [address] Urea nitrogen [Mass/Vol] 15 mg/dL Normal 7-18 [facility] Comment on above: Performed By: #### L 100.0100, L500.2500 ####[facility] [address] [place], [address] CBC W/Diff, Automatedon 09-08 03-2023 Absolute Lymph 1.30 X10 3/uL Normal 0.83-4.51 [facility] Comment on above: Performed By: #### L 100.0100, L500.2500 ####[facility] [address] [place], [address] Absolute Neut 3.5 X10 3/uL Normal 2.0-7.7 [facility] Comment on above: Performed By: #### L 100.0100, L500.2500 ####[facility] [address] [place], [address] Basophils/100 WBC (Bld) 0.2 % Normal 0-1 [facility] Comment on above: Performed By: #### L 100.0100, L500.2500 ####[facility] [address] [place], [address] Eosinophils/100 WBC (Bld) 2.8 % Normal 0-5 [facility] Comment on above: Performed By: #### L 100.0100, L500.2500 ####[facility] [address] [place], [address] Erythrocyte distribution width (RBC) [Ratio] 13.4 % Normal 11.6-14.6 [facility] Comment on above: Performed By: #### L 100.0100, L500.2500 ####[facility] [address] [place], [address] Hematocrit (Bld) [Volume fraction] 34.1 % Low 40-54 [facility] Comment on above: Performed By: #### L 100.0100, L500.2500 ####[facility] [address] [place], [address] Hemoglobin (Bld) [Mass/Vol] 10.8 g/dL Low 13.0-16.5 [facility] Comment on above: Performed By: #### L 100.0100, L500.2500 ####[facility] [address] [place], [address] IG% 0.300 Normal 0.0-0.9 [facility] Comment on above: Result Comment: IG% - Immature Granulocytes (promyelocytes, myelocytes andmetamyelocytes) > 1% indicates that a LEFT SHIFT is Present. Performed By: #### L 100.0100, L500.2500 ####[facility] [address] [place], [address] Lymphocytes/100 WBC (Bld) 22.6 % Normal 19-41 [facility] Comment on above: Performed By: #### L 100.0100, L500.2500 ####[facility] [address] [place], [address] MCH (RBC) [Entitic mass] 26.7 pg Low 27.0-32.0 [facility] Comment on above: Performed By: #### L 100.0100, L500.2500 ####[facility] [address] [place], [address] MCHC (RBC) [Mass/Vol] 31.7 g/dL Low 32-36 [facility] Comment on above: Performed By: #### L 100.0100, L500.2500 ####[facility] [address] [place], [address] MCV (RBC) [Entitic vol] 84.4 fL Normal 80-94 [facility] Comment on above: Performed By: #### L 100.0100, L500.2500 ####[facility] [address] [place], [address] Monocytes/100 WBC (Bld) 12.5 % High 0-10 [facility] Comment on above: Performed By: #### L 100.0100, L500.2500 ####[facility] [address] [place], [address] Neutrophils/100 WBC (Bld) 61.6 % Normal 47-70 [facility] Comment on above: Performed By: #### L 100.0100, L500.2500 ####[facility] [address] [place], [address] Nucleated RBC (Bld) [#/Vol] 0 10*3/uL Normal 0-5 [facility] Comment on above: Performed By: #### L 100.0100, L500.2500 ####[facility] [address] [place], [address] Platelet mean volume (Bld) [Entitic vol] 9.4 fL Normal 6.2-12.0 [facility] Comment on above: Performed By: #### L 100.0100, L500.2500 ####[facility] [address] [place], [address] Platelets (Bld) [#/Vol] 343 10*3/uL Normal 150-450 [facility] Comment on above: Performed By: #### L 100.0100, L500.2500 ####[facility] [address] [place], [address] RBC (Bld) [#/Vol] 4.04 10*6/uL Low 4.6-6.2 [facility] Comment on above: Performed By: #### L 100.0100, L500.2500 ####[facility] [address] [place], [address] RDW SD 41.8 fl Normal 35.1-43.9 [facility] Comment on above: Performed By: #### L 100.0100, L500.2500 ####[facility] [address] [place], [address] WBC (Bld) [#/Vol] 5.8 10*3/uL Normal 4.4-11.0 [facility] Comment on above: Performed By: #### L 100.0100, L500.2500 ####[facility] [address] [place], [address] Carcinoembryonic Antigenon 0 04-13-2024 CEA 2.7 ng/mL Normal 0.0-4.7 [facility] Comment on above: Result Comment: Nons mokers <3.9 Smokers <5.6[employer] Electrochemiluminescence Immunoassay(ECLIA)Values obtained with different assay methods or kitscannot be used interchangeably. Results cannot beinterpreted as absolute evidence of the presence orabsence of malignant disease.Performed at: [facility] [id number] Director: Jian Paredes PhD, Phone: [phone] Performed By: #### L 5769.3781 ####[facility] [address] [place], [place], [address] Colonoscopy Reporton 024 Colonoscopy Report Normal [facility] HER-2-DIONNA (initial)on 2023 HER-2-DIONNA (initial) Normal [facility] Comment on above: Performed By: #### P HER2 ####[facility] [address] [place], [place], [address] MR/POSTOP.ANEon 04-13-2024 MR/POSTOP.ANE Normal [facility] MR/PGZGFLRW3fi 04-13-2024 MR/POSTOPAN2 Normal [facility] Partial Thromboplast Timeon 04-13-2024 aPTT Coag (Bld) [Time] 29.4 s Normal 24.1-36.2 [facility] Comment on above: Performed By: #### L 300.3900, L300.4310 ####[facility] [address] [place], [address] Prothrombin Time w/INRon INR Coag (PPP) [Relative time] 1.1 {INR} Normal [facility] Comment on above: Performed By: #### L 300.3900, L300.4310 ####[facility] [address] [place], [address] PT Coag (PPP) [Time] 14.6 s Normal 11.7-14.9 [facility] Comment on above: Performed By: #### L 300.3900, L300.4310 ####[facility] [address] [place], [address] Special Stain Group Ion 04-01 Special Stain Group I Normal [facility] Comment on above: Performed By: #### P SSI ####[facility] [address] [place], [address] CBC W/Diff, Automatedon 04-01 Absolute Lymph 1.44 X10 3/uL Normal 0.83-4.51 [facility] Comment on above: Performed By: #### L 501.2300, L501.9520, L501.5200, L100.0100, L500.4050 ####[facility] [address] [place], [address] Absolute Neut 3.5 X10 3/uL Normal 2.0-7.7 [facility] Comment on above: Performed By: #### L 501.2300, L501.9520, L501.5200, L100.0100, L500.4050 ####[facility] [address] [place], [address] Basophils/100 WBC (Bld) 0.4 % Normal 0-1 [facility] Comment on above: Performed By: #### L 501.2300, L501.9520, L501.5200, L100.0100, L500.4050 ####[facility] [address] [place], [address] Eosinophils/100 WBC (Bld) 1.8 % Normal 0-5 [facility] Comment on above: Performed By: #### L 501.2300, L501.9520, L501.5200, L100.0100, L500.4050 ####[facility] [address] [place], [address] Erythrocyte distribution width (RBC) [Ratio] 13.3 % Normal 11.6-14.6 [facility] Comment on above: Performed By: #### L 501.2300, L501.9520, L501.5200, L100.0100, L500.4050 ####[facility] [address] [place], [address] Hematocrit (Bld) [Volume fraction] 32.7 % Low 40-54 [facility] Comment on above: Performed By: #### L 501.2300, L501.9520, L501.5200, L100.0100, L500.4050 ####[facility] [address] [place], [address] Hemoglobin (Bld) [Mass/Vol] 10.5 g/dL Low 13.0-16.5 [facility] Comment on above: Performed By: #### L 501.2300, L501.9520, L501.5200, L100.0100, L500.4050 ####[facility] [address] [place], [address] IG% 0.500 Normal 0.0-0.9 [facility] Comment on above: Result Comment: IG% - Immature Granulocytes (promyelocytes, myelocytes andmetamyelocytes) > 1% indicates that a LEFT SHIFT is Present. Performed By: #### L 501.2300, L501.9520, L501.5200, L100.0100, L500.4050 ####[facility] [address] [place], [address] Lymphocytes/100 WBC (Bld) 25.3 % Normal 19-41 [facility] Comment on above: Performed By: #### L 501.2300, L501.9520, L501.5200, L100.0100, L500.4050 ####[facility] [address] [place], [address] MCH (RBC) [Entitic mass] 27.5 pg Normal 27.0-32.0 [facility] Comment on above: Performed By: #### L 501.2300, L501.9520, L501.5200, L100.0100, L500.4050 ####[facility] [address] [place], [address] MCHC (RBC) [Mass/Vol] 32.1 g/dL Normal 32-36 [facility] Comment on above: Performed By: #### L 501.2300, L501.9520, L501.5200, L100.0100, L500.4050 ####[facility] [address] [place], [address] MCV (RBC) [Entitic vol] 85.6 fL Normal 80-94 [facility] Comment on above: Performed By: #### L 501.2300, L501.9520, L501.5200, L100.0100, L500.4050 ####[facility] [address] [place], [address] Monocytes/100 WBC (Bld) 10.5 % High 0-10 [facility] Comment on above: Performed By: #### L 501.2300, L501.9520, L501.5200, L100.0100, L500.4050 ####[facility] [address] [place], [address] Neutrophils/100 WBC (Bld) 61.5 % Normal 47-70 [facility] Comment on above: Performed By: #### L 501.2300, L501.9520, L501.5200, L100.0100, L500.4050 ####[facility] [address] [place], [address] Nucleated RBC (Bld) [#/Vol] 0 10*3/uL Normal 0-5 [facility] Comment on above: Performed By: #### L 501.2300, L501.9520, L501.5200, L100.0100, L500.4050 ####[facility] [address] [place], [address] Platelet mean volume (Bld) [Entitic vol] 9.2 fL Normal 6.2-12.0 [facility] Comment on above: Performed By: #### L 501.2300, L501.9520, L501.5200, L100.0100, L500.4050 ####[facility] [address] [place], [address] Platelets (Bld) [#/Vol] 314 10*3/uL Normal 150-450 [facility] Comment on above: Performed By: #### L 501.2300, L501.9520, L501.5200, L100.0100, L500.4050 ####[facility] [address] [place], [address] RBC (Bld) [#/Vol] 3.82 10*6/uL Low 4.6-6.2 [facility] Comment on above: Performed By: #### L 501.2300, L501.9520, L501.5200, L100.0100, L500.4050 ####[facility] [address] [place], [address] RDW SD 41.6 fl Normal 35.1-43.9 [facility] Comment on above: Performed By: #### L 501.2300, L501.9520, L501.5200, L100.0100, L500.4050 ####[facility] [address] [place], [address] WBC (Bld) [#/Vol] 5.7 10*3/uL Normal 4.4-11.0 [facility] Comment on above: Performed By: #### L 501.2300, L501.9520, L501.5200, L100.0100, L500.4050 ####[facility] [address] [place], [address] Comprehensive Metabolic Prof iaon 04-12-2024 Albumin [Mass/Vol] 3.8 g/dL Normal 3.2-5.0 [facility] Comment on above: Performed By: #### L 501.2300, L501.9520, L501.5200, L100.0100, L500.4050 ####[facility] [address] [place], [address] Albumin/Globulin [Mass ratio] 1.1 {ratio} Normal 0.9-2.4 [facility] Comment on above: Performed By: #### L 501.2300, L501.9520, L501.5200, L100.0100, L500.4050 ####[facility] [address] [place], [address] ALK P 88 U/L Normal 45-117 [facility] Comment on above: Performed By: #### L 501.2300, L501.9520, L501.5200, L100.0100, L500.4050 ####[facility] [address] [place], [address] ALT [Catalytic activity/Vol] 22 U/L Normal 16-61 [facility] Comment on above: Performed By: #### L 501.2300, L501.9520, L501.5200, L100.0100, L500.4050 ####[facility] [address] [place], [address] AST [Catalytic activity/Vol] 20 U/L Normal 15-37 [facility] Comment on above: Performed By: #### L 501.2300, L501.9520, L501.5200, L100.0100, L500.4050 ####[facility] [address] [place], [address] Bilirubin [Mass/Vol] 0.90 mg/dL Normal 0.20-1.00 [facility] Comment on above: Result Comment: For patients on eltrombopag therapy, use of Dimension Upham TBIL is not recommended. Performed By: #### L 501.2300, L501.9520, L501.5200, L100.0100, L500.4050 ####[facility] [address] [place], [address] BUN/CRE 13.7 RATIO Normal 10-20 [facility] Comment on above: Performed By: #### L 501.2300, L501.9520, L501.5200, L100.0100, L500.4050 ####[facility] [address] [place], [address] CA,Total 8.9 mg/dL Normal 8.5-10.1 [facility] Comment on above: Performed By: #### L 501.2300, L501.9520, L501.5200, L100.0100, L500.4050 ####[facility] [address] [place], [address] Chloride [Moles/Vol] 104 mmol/L Normal 98-107 [facility] Comment on above: Performed By: #### L 501.2300, L501.9520, L501.5200, L100.0100, L500.4050 ####[facility] [address] [place], [address] CO2 [Moles/Vol] 29.0 mmol/L Normal 21.0-32.0 [facility] Comment on above: Performed By: #### L 501.2300, L501.9520, L501.5200, L100.0100, L500.4050 ####[facility] [address] [place], [address] Creatinine [Mass/Vol] 1.17 mg/dL Normal 0.70-1.30 [facility] Comment on above: Result Comment: The validity of the calculated GFR GFRAA in patients over70 years has not been determined. Clinical correlation isessential. Performed By: #### L 501.2300, L501.9520, L501.5200, L100.0100, L500.4050 ####[facility] [address] [place], [address] ECRCL 48.72 ml/min Normal [facility] Comment on above: Performed By: #### L 501.2300, L501.9520, L501.5200, L100.0100, L500.4050 ####[facility] [address] [place], [address] EST GFR - AA 77 mL/min Normal >60 [facility] Comment on above: Result Comment: Afri can Indian GFR Calc Performed By: #### L 501.2300, L501.9520, L501.5200, L100.0100, L500.4050 ####[facility] [address] [place], [address] GAP 4 Low 5-15 [facility] Comment on above: Performed By: #### L 501.2300, L501.9520, L501.5200, L100.0100, L500.4050 ####[facility] [address] [place], [address] GFR/1.73 sq M.predicted among non-blacks MDRD (S/P/Bld) [Vol rate/Area] 64 mL/min/{1.73_m2} Normal >60 [facility] Comment on above: Result Comment: Non- GFR Calc Performed By: #### L 501.2300, L501.9520, L501.5200, L100.0100, L500.4050 ####[facility] [address] [place], [address] Globulin (S) [Mass/Vol] 3.5 g/dL Normal 2.2-4.2 [facility] Comment on above: Performed By: #### L 501.2300, L501.9520, L501.5200, L100.0100, L500.4050 ####[facility] [address] [place], [address] Glucose [Mass/Vol] 98 mg/dL Normal 74-106 [facility] Comment on above: Performed By: #### L 501.2300, L501.9520, L501.5200, L100.0100, L500.4050 ####[facility] [address] [place], [address] Potassium [Moles/Vol] 3.5 mmol/L Normal 3.5-5.1 [facility] Comment on above: Performed By: #### L 501.2300, L501.9520, L501.5200, L100.0100, L500.4050 ####[facility] [address] [place], [address] Sodium [Moles/Vol] 137 mmol/L Normal 136-145 [facility] Comment on above: Performed By: #### L 501.2300, L501.9520, L501.5200, L100.0100, L500.4050 ####[facility] [address] [place], [address] T PROT 7.3 g/dL Normal 6.4-8.2 [facility] Comment on above: Performed By: #### L 501.2300, L501.9520, L501.5200, L100.0100, L500.4050 ####[facility] [address] [place], [address] Urea nitrogen [Mass/Vol] 16 mg/dL Normal 7-18 [facility] Comment on above: Performed By: #### L 501.2300, L501.9520, L501.5200, L100.0100, L500.4050 ####[facility] [address] [place], [address] Consultation - Surgicalon Consultation - Surgical Normal [facility] Ferritinon 04-12-2024 Ferritin [Mass/Vol] 17 ng/mL Low 26-388 [facility] Comment on above: Performed By: #### L 503.6030, L503.6550 ####[facility] [address] [place], [address] Iron+Iron Binding Capacityon 04-12-2024 Iron [Mass/Vol] 16 ug/dL Low 65-175 [facility] Comment on above: Performed By: #### L 503.6030, L503.6550 ####[facility] [address] [place], [address] IRON SATURATION 4.1 Low 15.0-55.0 [facility] Comment on above: Performed By: #### L 503.6030, L503.6550 ####[facility] [address] [place], [address] TIBC 387 ug/dL Normal 250-450 [facility] Comment on above: Performed By: #### L 503.6030, L503.6550 ####[facility] [address] [place], [address] MR/CON.PCM.GIon 04-12-2024 MR/CON.PCM.GI Normal [facility] Magnesiumon 04-12-2024 Magnesium [Mass/Vol] 2.1 mg/dL Normal 1.6-2.6 [facility] Comment on above: Performed By: #### L 501.2300, L501.9520, L501.5200, L100.0100, L500.4050 ####[facility] [address], [address] Partial Thromboplast Timeon 04-12-2024 aPTT Coag (Bld) [Time] 27.7 s Normal 24.1-36.2 [facility] Comment on above: Performed By: #### L 300.4310, L300.3900 ####[facility] [address], [address] Phosphoruson 04-12-2024 Phosphate [Mass/Vol] 3.5 mg/dL Normal 2.5-4.9 [facility] Comment on above: Performed By: #### L 501.2300, L501.9520, L501.5200, L100.0100, L500.4050 ####[facility] [address] [place], [address] Prothrombin Time w/INRon INR Coag (PPP) [Relative time] 1.0 {INR} Normal [facility] Comment on above: Performed By: #### L 300.4310, L300.3900 ####[facility] [address], [address] PT Coag (PPP) [Time] 13.1 s Normal 11.7-14.9 [facility] Comment on above: Performed By: #### L 300.4310, L300.3900 ####[facility] [address] [place], [address] Thyroid Stim Hormone (TSH)on 04-12-2024 TSH 3.360 uIU/mL Normal 0.358-3.740 [facility] Comment on above: Performed By: #### L 501.2300, L501.9520, L501.5200, L100.0100, L500.4050 ####[facility] [address] [place], [address] 12 Lead EKGon 04-11-2024 12 Lead EKG Normal [facility] BNP,B-Type NATRIURETIC PEPTI Иван 04-11-2024 Natriuretic peptide B (Bld) [Mass/Vol] 371.0 pg/mL High 0-100 [facility] Comment on above: Performed By: #### L 501.4020, L500.4050, L300.8000, L503.6620, L100.0100 ####[facility] [address] [place], [address] BRCon 04-11-2024 RC Normal [facility] Comment on above: Result Comment: [id number] OP RC TRANSFUSED 04/12/24 [id number] OP RC TRANSFUSED 04/11/24 2311 Performed By: #### B RC ####[facility] [address] [place], [address] Basic Metabolic Profile (BMP )on 04-11-2024 BUN/CRE 13.8 RATIO Normal 10-20 [facility] Comment on above: Order Comment: 'TROP ' Serial specimen #1, #2 or #3: 1 Performed By: #### L 300.3900, L500.2500, L501.4020, L100.0100, L500.3400, L300.4310, BTS, L501.2450 ####[facility] [address] [place], [address] CA,Total 8.7 mg/dL Normal 8.5-10.1 [facility] Comment on above: Order Comment: 'TROP ' Serial specimen #1, #2 or #3: 1 Performed By: #### L 300.3900, L500.2500, L501.4020, L100.0100, L500.3400, L300.4310, BTS, L501.2450 ####[facility] [address] [place], [address] Chloride [Moles/Vol] 105 mmol/L Normal 98-107 [facility] Comment on above: Order Comment: 'TROP ' Serial specimen #1, #2 or #3: 1 Performed By: #### L 300.3900, L500.2500, L501.4020, L100.0100, L500.3400, L300.4310, BTS, L501.2450 ####[facility] [address] [place], [address] CO2 [Moles/Vol] 26.0 mmol/L Normal 21.0-32.0 [facility] Comment on above: Order Comment: 'TROP ' Serial specimen #1, #2 or #3: 1 Performed By: #### L 300.3900, L500.2500, L501.4020, L100.0100, L500.3400, L300.4310, BTS, L501.2450 ####[facility] [address] [place], [address] Creatinine [Mass/Vol] 1.30 mg/dL Normal 0.70-1.30 [facility] Comment on above: Order Comment: 'TROP ' Serial specimen #1, #2 or #3: 1 Result Comment: The validity of the calculated GFR GFRAA in patients over70 years has not been determined. Clinical correlation isessential. Performed By: #### L 300.3900, L500.2500, L501.4020, L100.0100, L500.3400, L300.4310, BTS, L501.2450 ####[facility] [address] [place], [address] ECRCL 45.94 ml/min Normal [facility] Comment on above: Order Comment: 'TROP ' Serial specimen #1, #2 or #3: 1 Performed By: #### L 300.3900, L500.2500, L501.4020, L100.0100, L500.3400, L300.4310, BTS, L501.2450 ####[facility] [address] [place], [address] EST GFR - AA 68 mL/min Normal >60 [facility] Comment on above: Order Comment: 'TROP ' Serial specimen #1, #2 or #3: 1 Result Comment: Afri can Indian GFR Calc Performed By: #### L 300.3900, L500.2500, L501.4020, L100.0100, L500.3400, L300.4310, BTS, L501.2450 ####[facility] [address] [place], [address] GAP 10 Normal 5-15 [facility] Comment on above: Order Comment: 'TROP ' Serial specimen #1, #2 or #3: 1 Performed By: #### L 300.3900, L500.2500, L501.4020, L100.0100, L500.3400, L300.4310, BTS, L501.2450 ####[facility] [address] [place], [address] GFR/1.73 sq M.predicted among non-blacks MDRD (S/P/Bld) [Vol rate/Area] 56 mL/min/{1.73_m2} Low >60 [facility] Comment on above: Order Comment: 'TROP ' Serial specimen #1, #2 or #3: 1 Result Comment: Non- GFR Calc Performed By: #### L 300.3900, L500.2500, L501.4020, L100.0100, L500.3400, L300.4310, BTS, L501.2450 ####[facility] [address] [place], [address] Glucose [Mass/Vol] 123 mg/dL High 74-106 [facility] Comment on above: Order Comment: 'TROP ' Serial specimen #1, #2 or #3: 1 Result Comment: Fast ing Glucose result from 100 to 125 mg/dLsuggests IMPAIRED HOMEOSTASIS per A.D.A. criteria. Performed By: #### L 300.3900, L500.2500, L501.4020, L100.0100, L500.3400, L300.4310, BTS, L501.2450 ####[facility] [address] [place], [address] Potassium [Moles/Vol] 3.7 mmol/L Normal 3.5-5.1 [facility] Comment on above: Order Comment: 'TROP ' Serial specimen #1, #2 or #3: 1 Performed By: #### L 300.3900, L500.2500, L501.4020, L100.0100, L500.3400, L300.4310, BTS, L501.2450 ####[facility] [address] [place], [address] Sodium [Moles/Vol] 141 mmol/L Normal 136-145 [facility] Comment on above: Order Comment: 'TROP ' Serial specimen #1, #2 or #3: 1 Performed By: #### L 300.3900, L500.2500, L501.4020, L100.0100, L500.3400, L300.4310, BTS, L501.2450 ####[facility] [address] [place], [address] Urea nitrogen [Mass/Vol] 18 mg/dL Normal 7-18 [facility] Comment on above: Order Comment: 'TROP ' Serial specimen #1, #2 or #3: 1 Performed By: #### L 300.3900, L500.2500, L501.4020, L100.0100, L500.3400, L300.4310, BTS, L501.2450 ####[facility] [address] [place], [address] CBC W/Diff, Automatedon 04-01 Absolute Lymph 1.15 X10 3/uL Normal 0.83-4.51 [facility] Comment on above: Performed By: #### L 300.3900, L500.2500, L501.4020, L100.0100, L500.3400, L300.4310, BTS, L501.2450 ####[facility] [address] [place], [address] Absolute Neut 4.0 X10 3/uL Normal 2.0-7.7 [facility] Comment on above: Performed By: #### L 300.3900, L500.2500, L501.4020, L100.0100, L500.3400, L300.4310, BTS, L501.2450 ####[facility] [address] [place], [address] Basophils/100 WBC (Bld) 0.5 % Normal 0-1 [facility] Comment on above: Performed By: #### L 300.3900, L500.2500, L501.4020, L100.0100, L500.3400, L300.4310, BTS, L501.2450 ####[facility] [address] [place], [address] Eosinophils/100 WBC (Bld) 1.3 % Normal 0-5 [facility] Comment on above: Performed By: #### L 300.3900, L500.2500, L501.4020, L100.0100, L500.3400, L300.4310, BTS, L501.2450 ####[facility] [address] [place], [address] Erythrocyte distribution width (RBC) [Ratio] 13.2 % Normal 11.6-14.6 [facility] Comment on above: Performed By: #### L 300.3900, L500.2500, L501.4020, L100.0100, L500.3400, L300.4310, BTS, L501.2450 ####[facility] [address] [place], [address] Hematocrit (Bld) [Volume fraction] 21.3 % Low 40-54 [facility] Comment on above: Performed By: #### L 300.3900, L500.2500, L501.4020, L100.0100, L500.3400, L300.4310, BTS, L501.2450 ####[facility] [address] [place], [address] Hemoglobin (Bld) [Mass/Vol] 6.7 g/dL Low 13.0-16.5 [facility] Comment on above: Performed By: #### L 300.3900, L500.2500, L501.4020, L100.0100, L500.3400, L300.4310, BTS, L501.2450 ####[facility] [address] [place], [address] IG% 0.500 Normal 0.0-0.9 [facility] Comment on above: Result Comment: IG% - Immature Granulocytes (promyelocytes, myelocytes andmetamyelocytes) > 1% indicates that a LEFT SHIFT is Present. Performed By: #### L 300.3900, L500.2500, L501.4020, L100.0100, L500.3400, L300.4310, BTS, L501.2450 ####[facility] [address] [place], [address] Lymphocytes/100 WBC (Bld) 19.0 % Normal 19-41 [facility] Comment on above: Performed By: #### L 300.3900, L500.2500, L501.4020, L100.0100, L500.3400, L300.4310, BTS, L501.2450 ####[facility] [address] [place], [address] MCH (RBC) [Entitic mass] 26.7 pg Low 27.0-32.0 [facility] Comment on above: Performed By: #### L 300.3900, L500.2500, L501.4020, L100.0100, L500.3400, L300.4310, BTS, L501.2450 ####[facility] [address] [place], [address] MCHC (RBC) [Mass/Vol] 31.5 g/dL Low 32-36 [facility] Comment on above: Performed By: #### L 300.3900, L500.2500, L501.4020, L100.0100, L500.3400, L300.4310, BTS, L501.2450 ####[facility] [address] [place], [address] MCV (RBC) [Entitic vol] 84.9 fL Normal 80-94 [facility] Comment on above: Performed By: #### L 300.3900, L500.2500, L501.4020, L100.0100, L500.3400, L300.4310, BTS, L501.2450 ####[facility] [address] [place], [address] Monocytes/100 WBC (Bld) 13.1 % High 0-10 [facility] Comment on above: Performed By: #### L 300.3900, L500.2500, L501.4020, L100.0100, L500.3400, L300.4310, BTS, L501.2450 ####[facility] [address] [place], [address] Neutrophils/100 WBC (Bld) 65.6 % Normal 47-70 [facility] Comment on above: Performed By: #### L 300.3900, L500.2500, L501.4020, L100.0100, L500.3400, L300.4310, BTS, L501.2450 ####[facility] [address] [place], [address] Nucleated RBC (Bld) [#/Vol] 0 10*3/uL Normal 0-5 [facility] Comment on above: Performed By: #### L 300.3900, L500.2500, L501.4020, L100.0100, L500.3400, L300.4310, BTS, L501.2450 ####[facility] [address] [place], [address] Platelet mean volume (Bld) [Entitic vol] 9.5 fL Normal 6.2-12.0 [facility] Comment on above: Performed By: #### L 300.3900, L500.2500, L501.4020, L100.0100, L500.3400, L300.4310, BTS, L501.2450 ####[facility] [address] [place], [address] Platelets (Bld) [#/Vol] 304 10*3/uL Normal 150-450 [facility] Comment on above: Performed By: #### L 300.3900, L500.2500, L501.4020, L100.0100, L500.3400, L300.4310, BTS, L501.2450 ####[facility] [address] [place], [address] RBC (Bld) [#/Vol] 2.51 10*6/uL Low 4.6-6.2 [facility] Comment on above: Performed By: #### L 300.3900, L500.2500, L501.4020, L100.0100, L500.3400, L300.4310, BTS, L501.2450 ####[facility] [address] [place], [address] RDW SD 40.7 fl Normal 35.1-43.9 [facility] Comment on above: Performed By: #### L 300.3900, L500.2500, L501.4020, L100.0100, L500.3400, L300.4310, BTS, L501.2450 ####[facility] [address] [place], [address] WBC (Bld) [#/Vol] 6.0 10*3/uL Normal 4.4-11.0 [facility] Comment on above: Performed By: #### L 300.3900, L500.2500, L501.4020, L100.0100, L500.3400, L300.4310, BTS, L501.2450 ####[facility] [address] [place], [address] Absolute Lymph 1.28 X10 3/uL Normal 0.83-4.51 [facility] Comment on above: Performed By: #### L 501.4020, L500.4050, L300.8000, L503.6620, L100.0100 ####[facility] [address] [place], [address] Absolute Neut 3.2 X10 3/uL Normal 2.0-7.7 [facility] Comment on above: Performed By: #### L 501.4020, L500.4050, L300.8000, L503.6620, L100.0100 ####[facility] [address] [place], [address] Basophils/100 WBC (Bld) 0.4 % Normal 0-1 [facility] Comment on above: Performed By: #### L 501.4020, L500.4050, L300.8000, L503.6620, L100.0100 ####[facility] [address] [place], [address] Eosinophils/100 WBC (Bld) 1.9 % Normal 0-5 [facility] Comment on above: Performed By: #### L 501.4020, L500.4050, L300.8000, L503.6620, L100.0100 ####[facility] [address] [place], [address] Erythrocyte distribution width (RBC) [Ratio] 13.4 % Normal 11.6-14.6 [facility] Comment on above: Performed By: #### L 501.4020, L500.4050, L300.8000, L503.6620, L100.0100 ####[facility] [address] [place], [address] Hematocrit (Bld) [Volume fraction] 23.9 % Low 40-54 [facility] Comment on above: Performed By: #### L 501.4020, L500.4050, L300.8000, L503.6620, L100.0100 ####[facility] [address] [place], [address] Hemoglobin (Bld) [Mass/Vol] 7.2 g/dL Low 13.0-16.5 [facility] Comment on above: Performed By: #### L 501.4020, L500.4050, L300.8000, L503.6620, L100.0100 ####[facility] [address] [place], [address] IG% 0.400 Normal 0.0-0.9 [facility] Comment on above: Result Comment: IG% - Immature Granulocytes (promyelocytes, myelocytes andmetamyelocytes) > 1% indicates that a LEFT SHIFT is Present. Performed By: #### L 501.4020, L500.4050, L300.8000, L503.6620, L100.0100 ####[facility] [address] [place], [address] Lymphocytes/100 WBC (Bld) 24.1 % Normal 19-41 [facility] Comment on above: Performed By: #### L 501.4020, L500.4050, L300.8000, L503.6620, L100.0100 ####[facility] [address] [place], [address] MCH (RBC) [Entitic mass] 26.2 pg Low 27.0-32.0 [facility] Comment on above: Performed By: #### L 501.4020, L500.4050, L300.8000, L503.6620, L100.0100 ####[facility] [address] [place], [address] MCHC (RBC) [Mass/Vol] 30.1 g/dL Low 32-36 [facility] Comment on above: Performed By: #### L 501.4020, L500.4050, L300.8000, L503.6620, L100.0100 ####[facility] [address] [place], [address] MCV (RBC) [Entitic vol] 86.9 fL Normal 80-94 [facility] Comment on above: Performed By: #### L 501.4020, L500.4050, L300.8000, L503.6620, L100.0100 ####[facility] [address] [place], [address] Monocytes/100 WBC (Bld) 13.6 % High 0-10 [facility] Comment on above: Performed By: #### L 501.4020, L500.4050, L300.8000, L503.6620, L100.0100 ####[facility] [address] [place], [address] Neutrophils/100 WBC (Bld) 59.6 % Normal 47-70 [facility] Comment on above: Performed By: #### L 501.4020, L500.4050, L300.8000, L503.6620, L100.0100 ####[facility] [address] [place], [address] Nucleated RBC (Bld) [#/Vol] 0 10*3/uL Normal 0-5 [facility] Comment on above: Performed By: #### L 501.4020, L500.4050, L300.8000, L503.6620, L100.0100 ####[facility] [address] [place], [address] Platelet mean volume (Bld) [Entitic vol] 9.8 fL Normal 6.2-12.0 [facility] Comment on above: Performed By: #### L 501.4020, L500.4050, L300.8000, L503.6620, L100.0100 ####[facility] [address] [place], [address] Platelets (Bld) [#/Vol] 321 10*3/uL Normal 150-450 [facility] Comment on above: Performed By: #### L 501.4020, L500.4050, L300.8000, L503.6620, L100.0100 ####[facility] [address] [place], [address] RBC (Bld) [#/Vol] 2.75 10*6/uL Low 4.6-6.2 [facility] Comment on above: Performed By: #### L 501.4020, L500.4050, L300.8000, L503.6620, L100.0100 ####[facility] [address] [place], [address] RDW SD 42.7 fl Normal 35.1-43.9 [facility] Comment on above: Performed By: #### L 501.4020, L500.4050, L300.8000, L503.6620, L100.0100 ####[facility] [address] [place], [address] WBC (Bld) [#/Vol] 5.3 10*3/uL Normal 4.4-11.0 [facility] Comment on above: Performed By: #### L 501.4020, L500.4050, L300.8000, L503.6620, L100.0100 ####[facility] [address] [place], [address] CTA Chst, Abd, Pel W and/or WOon 04-11-2024 CTA Chst, Abd, Pel W and/or WO Normal [facility] Comprehensive Metabolic Prof ilon 04-11-2024 Albumin [Mass/Vol] 3.5 g/dL Normal 3.2-5.0 [facility] Comment on above: Order Comment: 1 Performed By: #### L 501.4020, L500.4050, L300.8000, L503.6620, L100.0100 ####[facility] [address] [place], [address] Albumin/Globulin [Mass ratio] 1.0 {ratio} Normal 0.9-2.4 [facility] Comment on above: Order Comment: 1 Performed By: #### L 501.4020, L500.4050, L300.8000, L503.6620, L100.0100 ####[facility] [address] [place], [address] ALK P 89 U/L Normal 45-117 [facility] Comment on above: Order Comment: 1 Performed By: #### L 501.4020, L500.4050, L300.8000, L503.6620, L100.0100 ####[facility] [address] [place], [address] ALT [Catalytic activity/Vol] 19 U/L Normal 16-61 [facility] Comment on above: Order Comment: 1 Performed By: #### L 501.4020, L500.4050, L300.8000, L503.6620, L100.0100 ####[facility] [address] [place], [address] AST [Catalytic activity/Vol] 19 U/L Normal 15-37 [facility] Comment on above: Order Comment: 1 Performed By: #### L 501.4020, L500.4050, L300.8000, L503.6620, L100.0100 ####[facility] [address] [place], [address] Bilirubin [Mass/Vol] 0.30 mg/dL Normal 0.20-1.00 [facility] Comment on above: Order Comment: 1 Result Comment: For patients on eltrombopag therapy, use of Dimension Upham TBIL is not recommended. Performed By: #### L 501.4020, L500.4050, L300.8000, L503.6620, L100.0100 ####[facility] [address] [place], [address] BUN/CRE 13.2 RATIO Normal 10-20 [facility] Comment on above: Order Comment: 1 Performed By: #### L 501.4020, L500.4050, L300.8000, L503.6620, L100.0100 ####[facility] [address] [place], [address] CA,Total 9.2 mg/dL Normal 8.5-10.1 [facility] Comment on above: Order Comment: 1 Performed By: #### L 501.4020, L500.4050, L300.8000, L503.6620, L100.0100 ####[facility] [address] [place], [address] Chloride [Moles/Vol] 104 mmol/L Normal 98-107 [facility] Comment on above: Order Comment: 1 Performed By: #### L 501.4020, L500.4050, L300.8000, L503.6620, L100.0100 ####[facility] [address] [place], [address] CO2 [Moles/Vol] 26.0 mmol/L Normal 21.0-32.0 [facility] Comment on above: Order Comment: 1 Performed By: #### L 501.4020, L500.4050, L300.8000, L503.6620, L100.0100 ####[facility] [address] [place], [address] Creatinine [Mass/Vol] 1.14 mg/dL Normal 0.70-1.30 [facility] Comment on above: Order Comment: 1 Result Comment: The validity of the calculated GFR GFRAA in patients over70 years has not been determined. Clinical correlation isessential. Performed By: #### L 501.4020, L500.4050, L300.8000, L503.6620, L100.0100 ####[facility] [address] [place], [address] EST GFR - AA 80 mL/min Normal >60 [facility] Comment on above: Order Comment: 1 Result Comment: Afri can Indian GFR Calc Performed By: #### L 501.4020, L500.4050, L300.8000, L503.6620, L100.0100 ####[facility] [address] [place], [address] GAP 6 Normal 5-15 [facility] Comment on above: Order Comment: 1 Performed By: #### L 501.4020, L500.4050, L300.8000, L503.6620, L100.0100 ####[facility] [address] [place], [address] GFR/1.73 sq M.predicted among non-blacks MDRD (S/P/Bld) [Vol rate/Area] 66 mL/min/{1.73_m2} Normal >60 [facility] Comment on above: Order Comment: 1 Result Comment: Non- GFR Calc Performed By: #### L 501.4020, L500.4050, L300.8000, L503.6620, L100.0100 ####[facility] [address] [place], [address] Globulin (S) [Mass/Vol] 3.4 g/dL Normal 2.2-4.2 [facility] Comment on above: Order Comment: 1 Performed By: #### L 501.4020, L500.4050, L300.8000, L503.6620, L100.0100 ####[facility] [address] [place], [address] Glucose [Mass/Vol] 108 mg/dL High 74-106 [facility] Comment on above: Order Comment: 1 Result Comment: Fast ing Glucose result from 100 to 125 mg/dLsuggests IMPAIRED HOMEOSTASIS per A.D.A. criteria. Performed By: #### L 501.4020, L500.4050, L300.8000, L503.6620, L100.0100 ####[facility] [address] [place], [address] Potassium [Moles/Vol] 3.9 mmol/L Normal 3.5-5.1 [facility] Comment on above: Order Comment: 1 Performed By: #### L 501.4020, L500.4050, L300.8000, L503.6620, L100.0100 ####[facility] [address] [place], [address] Sodium [Moles/Vol] 136 mmol/L Normal 136-145 [facility] Comment on above: Order Comment: 1 Performed By: #### L 501.4020, L500.4050, L300.8000, L503.6620, L100.0100 ####[facility] [address] [place], [address] T PROT 6.9 g/dL Normal 6.4-8.2 [facility] Comment on above: Order Comment: 1 Performed By: #### L 501.4020, L500.4050, L300.8000, L503.6620, L100.0100 ####[facility] [address] [place], [address] Urea nitrogen [Mass/Vol] 15 mg/dL Normal 7-18 [facility] Comment on above: Order Comment: 1 Performed By: #### L 501.4020, L500.4050, L300.8000, L503.6620, L100.0100 ####[facility] [address] [place], [address] D-Dimer Quantitative (DVT/PE )on 04-11-2024 D-DIMER QUANT 2.00 FEU/ug/m Invalid Interpretation Code 0.27-0.49 [facility] Comment on above: Result Comment: D-Di gita ELEVATED (>0.49): Additional studies and clinicalassessments are indicated to conclude diagnosis of:Deep Vein Thrombosis (DVT) or Pulmonary Embolism (PE)CRITICAL VALUE CALLED TO MARIELA OLSON04/11/24 1821 Gudelia Bolanos.RESULTS READ BACK BY SAME. Performed By: #### L 501.4020, L500.4050, L300.8000, L503.6620, L100.0100 ####[facility] [address] [place], [address] Emergency Department Summary on 04-11-2024 Emergency Department Summary Normal [facility] H AND P Exam - [facility] 04-11-2024 H&P Exam - Hospitalist Normal [facility] L501.4020on 04-11-2024 TROPONIN-I HS 124 pg/mL Invalid Interpretation Code 3.0-78.0 [facility] Comment on above: Order Comment: 'TROP ' Serial specimen #1, #2 or #3: 1 Result Comment: Plea se Note: New Test Units and Gender Specific Reference Ranges. For more information see Policy Stat Procedure [place] High Sensitivity Troponin (TNIH) and attachments. Performed By: #### L 300.3900, L500.2500, L501.4020, L100.0100, L500.3400, L300.4310, BTS, L501.2450 ####[facility] [address] [place], [address] TROPONIN-I HS 123 pg/mL Invalid Interpretation Code 3.0-78.0 [facility] Comment on above: Order Comment: 1 Result Comment: CRIT ICAL VALUE CALLED TO MARIELA OLSON04/11/24 1822 Gudelia [place].RESULTS READ BACK BY SAME. Please Note: New Test Units and Gender Specific Reference Ranges. For more information see Policy Stat Procedure Upham High Sensitivity Troponin (TNIH) and attachments. Performed By: #### L 501.4020, L500.4050, L300.8000, L503.6620, L100.0100 ####[facility] [address] [place], [address] Lipaseon 04-11-2024 Lipase [Catalytic activity/Vol] 29 U/L Normal 13-75 [facility] Comment on above: Order Comment: 'TROP ' Serial specimen #1, #2 or #3: 1 Result Comment: Plea se note:LIPASE revised reference range effective 22.New Lipase methodology. Expected to produce lower valuesthan the previous assay method.NEW Reference Range: 13 - 75 U/L Performed By: #### L 300.3900, L500.2500, L501.4020, L100.0100, L500.3400, L300.4310, BTS, L501.2450 ####[facility] [address] [place], [address] Liver Profileon 04-11-2024 Albumin [Mass/Vol] 3.4 g/dL Normal 3.2-5.0 [facility] Comment on above: Order Comment: 'TROP ' Serial specimen #1, #2 or #3: 1 Performed By: #### L 300.3900, L500.2500, L501.4020, L100.0100, L500.3400, L300.4310, BTS, L501.2450 ####[facility] [address] [place], [address] ALK P 87 U/L Normal 45-117 [facility] Comment on above: Order Comment: 'TROP ' Serial specimen #1, #2 or #3: 1 Performed By: #### L 300.3900, L500.2500, L501.4020, L100.0100, L500.3400, L300.4310, BTS, L501.2450 ####[facility] [address] [place], [address] ALT [Catalytic activity/Vol] 18 U/L Normal 16-61 [facility] Comment on above: Order Comment: 'TROP ' Serial specimen #1, #2 or #3: 1 Performed By: #### L 300.3900, L500.2500, L501.4020, L100.0100, L500.3400, L300.4310, BTS, L501.2450 ####[facility] [address] [place], [address] AST [Catalytic activity/Vol] 15 U/L Normal 15-37 [facility] Comment on above: Order Comment: 'TROP ' Serial specimen #1, #2 or #3: 1 Performed By: #### L 300.3900, L500.2500, L501.4020, L100.0100, L500.3400, L300.4310, BTS, L501.2450 ####[facility] [address] [place], [address] Bilirubin [Mass/Vol] 0.30 mg/dL Normal 0.20-1.00 [facility] Comment on above: Order Comment: 'TROP ' Serial specimen #1, #2 or #3: 1 Result Comment: For patients on eltrombopag therapy, use of Dimension Upham TBIL is not recommended. Performed By: #### L 300.3900, L500.2500, L501.4020, L100.0100, L500.3400, L300.4310, BTS, L501.2450 ####[facility] [address] [place], [address] Bilirubin.direct [Mass/Vol] 0.09 mg/dL Normal 0.00-0.30 [facility] Comment on above: Order Comment: 'TROP ' Serial specimen #1, #2 or #3: 1 Performed By: #### L 300.3900, L500.2500, L501.4020, L100.0100, L500.3400, L300.4310, BTS, L501.2450 ####[facility] [address] [place], [address] Globulin (S) [Mass/Vol] 3.2 g/dL Normal 2.2-4.2 [facility] Comment on above: Order Comment: 'TROP ' Serial specimen #1, #2 or #3: 1 Performed By: #### L 300.3900, L500.2500, L501.4020, L100.0100, L500.3400, L300.4310, BTS, L501.2450 ####[facility] [address] [place], [address] T PROT 6.6 g/dL Normal 6.4-8.2 [facility] Comment on above: Order Comment: 'TROP ' Serial specimen #1, #2 or #3: 1 Performed By: #### L 300.3900, L500.2500, L501.4020, L100.0100, L500.3400, L300.4310, BTS, L501.2450 ####[facility] [address] [place], [address] Partial Thromboplast Timeon 04-11-2024 aPTT Coag (Bld) [Time] 27.9 s Normal 24.1-36.2 [facility] Comment on above: Performed By: #### L 300.3900, L500.2500, L501.4020, L100.0100, L500.3400, L300.4310, BTS, L501.2450 ####[facility] [address] [place], [place], [id number] Prothrombin Time w/INRon INR Coag (PPP) [Relative time] 1.1 {INR} Normal [facility] Comment on above: Performed By: #### L 300.3900, L500.2500, L501.4020, L100.0100, L500.3400, L300.4310, BTS, L501.2450 ####[facility] [address] [place], [place], [id number] PT Coag (PPP) [Time] 13.8 s Normal 11.7-14.9 [facility] Comment on above: Performed By: #### L 300.3900, L500.2500, L501.4020, L100.0100, L500.3400, L300.4310, BTS, L501.2450 ####[facility] [address] [place], [place], [id number] Type AND Screenon 04-11-2024 Ab SCREEN GEL Negative Normal [facility] Comment on above: Order Comment: A Performed By: #### L 300.3900, L500.2500, L501.4020, L100.0100, L500.3400, L300.4310, BTS, L501.2450 ####[facility] [address] [place], [place], [id number] ABO and Rh group Nom (Bld) Blood group O Rh(D) positive [facility] Comment on above: Order Comment: A Performed By: #### L 300.3900, L500.2500, L501.4020, L100.0100, L500.3400, L300.4310, BTS, L501.2450 ####[facility] [address] [place], [address] Absolute lymphocyte countOrd ered By: Stevie Vela on 12-11-2023 Lymphocytes Auto (Unsp spec) [#/Vol] 1.38 10*3/uL 0.83-4.51 [facility] Automated lymphocyte count a s percentage of total leukocytesOrdered By: Stevie Vela on 12-11-2023 Lymphocytes/100 WBC Auto (Unsp spec) 23.2 % 19-41 [facility] Basophil percentageOrdered B y: Stevie Vela on 12-11-2023 Basophils/100 WBC (Bld) 0.5 % 0-1 [facility] Chloride [Moles/Vol] 105 mmol/L 98-107 [facility] Eosinophils/100 WBC (Bld) 2.2 % 0-5 [facility] Glucose [Mass/Vol] 107 mg/dL 74-106 [facility] Comment on above: Fasting Glucose resu lt from 100 to 125 mg/dL suggests IMPAIRED HOMEOSTASIS per A.D.A. criteria. Hemoglobin (Bld) [Mass/Vol] 11.7 g/dL 13.0-16.5 [facility] Monocytes/100 WBC (Bld) 9.4 % 0-10 [facility] Neutrophils (Bld) [#/Vol] 3.8 10*3/uL 2.0-7.7 [facility] Neutrophils/100 WBC (Bld) 64.4 % 47-70 [facility] Potassium [Moles/Vol] 4.1 mmol/L 3.5-5.1 [facility] Sodium [Moles/Vol] 138 mmol/L 136-145 [facility] WBC (Bld) [#/Vol] 5.9 10*3/uL 4.4-11.0 [facility] Determination of erythrocyte mean corpuscular volume (MCV)Ordered By: Stevie Vela on 12-11-2023 MCV (RBC) [Entitic vol] 90.7 fL 80-94 [facility] Erythrocyte distribution wid th ratioOrdered By: Stevie Vela on 12-11-2023 Erythrocyte distribution width (RBC) [Ratio] 12.8 % 11.6-14.6 [facility] Erythrocyte distribution wid th standard deviationOrdered By: Stevie Vela on 12-11-2023 Erythrocyte distribution width (RBC) [Entitic vol] 41.6 fL 35.1-43.9 [facility] Hematocrit Auto (Bld) [Volum e fraction]Ordered By: Stevie Vela on 12-11-2023 Hematocrit (Bld) [Volume fraction] 35.1 % 40-54 [facility] Immature granulocytes/100 WB C Auto (Bld)Ordered By: Stevie Vela on 12-11-2023 Immature granulocytes/100 WBC (Bld) 0.300 % 0.0-0.9 [facility] Comment on above: IG% - Immature Granu locytes (promyelocytes, myelocytes and metamyelocytes) > 1% indicates that a LEFT SHIFT is Present. Laboratory - Chemistry and C hemistry - challengeOrdered By: Stevie Vela on 12-11-2023 CO2 [Moles/Vol] 27.0 mmol/L 21.0-32.0 [facility] Urea nitrogen/Creatinine [Mass ratio] 20.3 mg/mg 10-20 [facility] Laboratory - Hematology and Cell countsOrdered By: Stevie Vela on 12-11-2023 MCH (RBC) [Entitic mass] 30.2 pg 27.0-32.0 [facility] MCHC (RBC) [Mass/Vol] 33.3 g/dL 32-36 [facility] Nucleated RBC/100 WBC (Bld) [Ratio] 0 % 0-5 [facility] Platelet mean volume (Bld) [Entitic vol] 9.8 fL 6.2-12.0 [facility] Platelets (Bld) [#/Vol] 233 10*3/uL 150-450 [facility] No Panel InformationOrdered By: Stevie Vela on 12-11-2023 Estimated Creatinine Clearance Calc 54.39 ml/min [facility] Estimated GFR (MDRD) Amer 76 mL/min >60 [facility] Comment on above: GFR Calc Estimated GFR (MDRD) Non-Af Amer 63 mL/min >60 [facility] Comment on above: Non- GFR Calc Troponin I High Sensitivity 77 pg/mL 3.0-78.0 [facility] Comment on above: Please Note: New Wendy t Units and Gender Specific Reference Ranges. For more information see Policy Stat Procedure Upham High Sensitivity Troponin (TNIH) and attachments. RBC Auto (Bld) [#/Vol]Ordere d By: Stevie Vela on 12-11-2023 RBC (Bld) [#/Vol] 3.87 10*6/uL 4.6-6.2 [facility] Serum or plasma calcium shagufta urement (mass/volume)Ordered By: Stevie Vela on 12-11-2023 Calcium [Mass/Vol] 8.8 mg/dL 8.5-10.1 [facility] Serum or plasma creatinine m easurement (mass/volume)Ordered By: Stevie Vela on 12-11-2023 Creatinine [Mass/Vol] 1.18 mg/dL 0.70-1.30 [facility] Comment on above: The validity of the calculated GFR & GFRAA in patients over 70 years has not been determined. Clinical correlation is essential. Serum or plasma urea nitroge n measurement (mass/volume)Ordered By: Stevie Vela on 12-11-2023 Urea nitrogen [Mass/Vol] 24 mg/dL 7-18 [facility] Thin prep Papanicolaou smear with manual screeningOrdered By: Stevie Vela on 12-11-2023 Thin prep Papanicolaou smear with manual screening 6 5-15 [facility] Basophil percentageOrdered B y: Neville Islas on 08-22-2023 Testosterone [Mass/Vol] 374 ng/dL 264-916 [facility] Comment on above: Adult male reference interval is based on a population ofhealthy nonobese males (BMI <30) between 19 and 39 yearsold. Julian, et.al. JCEM 2017,102;1793-2829. PMID:[id number]. Free testosterone percentage Ordered By: Neville Islas on 08-22-2023 Testosterone Free/Testosterone.tota l [Mass fraction] 1.85 % 1.50-4.20 [facility] Laboratory - Chemistry and C hemistry - challengeOrdered By: Neville Islas on 08-22-2023 Prolactin IA Qn 11.4 ng/mL [facility] Comment on above: NORMAL REFERENCE RAN GES FEMALE NON- 2.2 - 30.3 ng/mL 8.1 - 347.6 ng/mL POST-MENOPAUSAL 0.7 - 31.5 ng/mL MALE 2.5 - 17.4 ng/mL Transferrin [Mass/Vol] 250 mg/dL 177-329 [facility] Comment on above: Performed at: Curbside - [facility] [address] [id number] Director: Jian Paredes PhD, Phone: [phone] at: BN - [facility] [address] [phone] Director: Tejal Dumas MD, Phone: [phone] Serum or plasma testosterone free measurement (mass/volume)Ordered By: Neville Islas on 08-22-2023 Testosterone Free [Mass/Vol] 6.92 ng/dL 5.00-21.00 [facility] Serum or plasma thyroid stim ulating hormone (TSH) measurement (units/volume)Ordered By: Neville Islas on 08-22-2023 TSH Qn 4.59 uIU/mL 0.358-3.74 [facility] Absolute lymphocyte countOrd ered By: Darrel Sanders on 08-16-2023 Lymphocytes Auto (Unsp spec) [#/Vol] 2.04 10*3/uL 0.83-4.51 [facility] Basophil percentageOrdered B y: Darrel Sanders on 08-16-2023 Basophil percentage 3.1 mg/dL 2.5-4.9 [facility] Basophils/100 WBC (Bld) 0.3 % 0-1 [facility] Bilirubin [Mass/Vol] 0.80 mg/dL 0.20-1.00 [facility] Comment on above: For patients on eltr ombopag therapy, use of Dimension Upham TBIL is not recommended. Chloride [Moles/Vol] 105 mmol/L 98-107 [facility] Cholesterol [Mass/Vol] 203 mg/dL <200 [facility] Comment on above: <200 mg/dL Desirable 200-240 mg/dL Borderline >240 mg/dL High Risk Eosinophils/100 WBC (Bld) 1.9 % 0-5 [facility] Glucose [Mass/Vol] 91 mg/dL 74-106 [facility] Neutrophils (Bld) [#/Vol] 3.5 10*3/uL 2.0-7.7 [facility] Neutrophils/100 WBC (Bld) 56.6 % 47-70 [facility] Potassium [Moles/Vol] 3.7 mmol/L 3.5-5.1 [facility] Protein [Mass/Vol] 7.3 g/dL 6.4-8.2 [facility] Sodium [Moles/Vol] 137 mmol/L 136-145 [facility] Triglyceride [Mass/Vol] 105 mg/dL <199 [facility] Comment on above: The drugs N-Acetylcy steine and Metamizole may falsely depress this assay.Serum Triglycerides Reference Interval Normal <150 mg/dL Borderline high 150 - 199 mg/dL High 200 - 499 mg/dL Very High > or = 500 mg/dL WBC (Bld) [#/Vol] 6.2 10*3/uL 4.4-11.0 [facility] Blood erythrocytes count (nu mber/volume)Ordered By: Darrel Sanders on 08-16-2023 RBC (Bld) [#/Vol] 4.25 10*6/uL 4.6-6.2 [facility] Blood hemoglobin measurement (mass/volume)Ordered By: Darrel Sanders on 08-16-2023 Hemoglobin (Bld) [Mass/Vol] 12.7 g/dL 13.0-16.5 [facility] Blood lymphocytes/100 leukoc ytesOrdered By: Darrel Sanders on 08-16-2023 Lymphocytes/100 WBC (Bld) 32.7 % 19-41 [facility] Blood monocytes/100 leukocyt esOrdered By: Darrel Sanders on 08-16-2023 Monocytes/100 WBC (Bld) 8.3 % 0-10 [facility] Blood platelet mean volumeOr dered By: Darrel Sanders on 08-16-2023 Platelet mean volume (Bld) [Entitic vol] 9.9 fL 6.2-12.0 [facility] Determination of erythrocyte mean corpuscular volume (MCV)Ordered By: Darrel Sanders on 08-16-2023 MCV (RBC) [Entitic vol] 89.2 fL 80-94 [facility] Hematocrit Auto (Bld) [Volum e fraction]Ordered By: Darrel Sanders on 08-16-2023 Hematocrit (Bld) [Volume fraction] 37.9 % 40-54 [facility] Laboratory - Chemistry and C hemistry - challengeOrdered By: Darrel Sanders on 08-16-2023 ALP [Catalytic activity/Vol] 87 U/L 45-117 [facility] ALT [Catalytic activity/Vol] 28 U/L 16-61 [facility] CO2 [Moles/Vol] 26.0 mmol/L 21.0-32.0 [facility] Globulin (S) [Mass/Vol] 3.5 g/dL 2.2-4.2 [facility] Magnesium [Mass/Vol] 2.2 mg/dL 1.6-2.6 [facility] Urea nitrogen/Creatinine [Mass ratio] 18.6 mg/mg 10-20 [facility] Laboratory - Hematology and Cell countsOrdered By: Darrel Sanders on 08-16-2023 Erythrocyte distribution width (RBC) [Entitic vol] 43.4 fL 35.1-43.9 [facility] Erythrocyte distribution width (RBC) [Ratio] 13.3 % 11.6-14.6 [facility] Immature granulocytes/100 WBC (Bld) 0.200 % 0.0-0.9 [facility] Comment on above: IG% - Immature Granu locytes (promyelocytes, myelocytes and metamyelocytes) > 1% indicates that a LEFT SHIFT is Present. MCH (RBC) [Entitic mass] 29.9 pg 27.0-32.0 [facility] Nucleated RBC/100 WBC (Bld) [Ratio] 0 % 0-5 [facility] MCHC Auto (RBC) [Mass/Vol]Or dered By: Darrel Sanders on 08-16-2023 MCHC (RBC) [Mass/Vol] 33.5 g/dL 32-36 [facility] No Panel InformationOrdered By: Darrel Sanders on 08-16-2023 Estimated Creatinine Clearance Calc 58.72 ml/min [facility] Estimated GFR (MDRD) Amer 91 mL/min >60 [facility] Comment on above: GFR Calc Estimated GFR (MDRD) Non-Af Amer 75 mL/min >60 [facility] Comment on above: Non- GFR Calc D-Dimer Quantitative (PE/DVT) 0.79 FEU/ug/m 0.27-0.49 [facility] Comment on above: D-Dimer ELEVATED (>0 .49): Additional studies and clinicalassessments are indicated to conclude diagnosis of:Deep Vein Thrombosis (DVT) or Pulmonary Embolism (PE)CRITICAL VALUE VERIFIED. CALLED TO [id number] Quintin Cardenas.RESULTS READ BACK BY SAME. Troponin I High Sensitivity 96 pg/mL 3.0-78.0 [facility] Comment on above: Please Note: New Wendy t Units and Gender Specific Reference Ranges. For more information see Policy Stat Procedure Upham High Sensitivity Troponin (TNIH) and attachments. Platelets bldOrdered By: Esdras Sanders on 08-16-2023 Platelets (Bld) [#/Vol] 250 10*3/uL 150-450 [facility] Serum or plasma albumin shagufta urement (mass/volume)Ordered By: Darrel Sanders on 08-16-2023 Albumin [Mass/Vol] 3.8 g/dL 3.2-5.0 [facility] Serum or plasma albumin/glob ulin mass ratioOrdered By: Darrel Sanders on 08-16-2023 Albumin/Globulin [Mass ratio] 1.1 {ratio} 0.9-2.4 [facility] Serum or plasma calcium shagufta urement (mass/volume)Ordered By: Darrel Sanders on 08-16-2023 Calcium [Mass/Vol] 9.4 mg/dL 8.5-10.1 [facility] Serum or plasma cholesterol in HDL measurement (mass/volume)Ordered By: Darrel Sanders on 08-16-2023 Cholesterol in HDL [Mass/Vol] 59 mg/dL >40 [facility] Comment on above: The drugs N-Acetylcy steine and Metamizole may falsely depress this assay. Reference Range HDL <40 mg/dL Low HDL Cholesterol HDL >or= 60 mg/dL High HDL Cholesterol Serum or plasma cholesterol in VLDL measurement (mass/volume)Ordered By: Darrel Sanders on 08-16-2023 Cholesterol in VLDL [Mass/Vol] 21 mg/dL 5-40 [facility] Serum or plasma creatinine m easurement (mass/volume)Ordered By: Darrel Sanders on 08-16-2023 Creatinine [Mass/Vol] 1.02 mg/dL 0.70-1.30 [facility] Comment on above: The validity of the calculated GFR & GFRAA in patients over 70 years has not been determined. Clinical correlation is essential. Serum or plasma low density lipoprotein (LDL) cholesterol measurement (mass/volume)Ordered By: Darrel Sanders on 08-16-2023 Cholesterol in LDL [Mass/Vol] 123 mg/dL 0-130 [facility] Serum or plasma thyroid stim ulating hormone (TSH) measurement (units/volume)Ordered By: Lucy Polanco on 08-16-2023 TSH Qn 4.27 uIU/mL 0.358-3.74 [facility] Serum or plasma urea nitroge n measurement (mass/volume)Ordered By: Darrel Sanders on 08-16-2023 Urea nitrogen [Mass/Vol] 19 mg/dL 7-18 [facility] Thin prep Papanicolaou smear with manual screeningOrdered By: Darrel Sanders on 08-16-2023 Thin prep Papanicolaou smear with manual screening 25 U/L 15-37 [facility] Thin prep Papanicolaou smear with manual screening 6 5-15 [facility] Thin prep Papanicolaou smear with manual screeningOrdered By: Lucy Polanco on 08-16-2023 Thin prep Papanicolaou smear with manual screening 0.97 ng/dL 0.76-1.46 [facility] Absolute lymphocyte countOrd ered By: Faustina Garrison on 08-15-2023 Lymphocytes Auto (Unsp spec) [#/Vol] 1.56 10*3/uL 0.83-4.51 [facility] Basophil percentageOrdered B y: Faustina Garrison on 08-15-2023 Basophil percentage 0 SEEN /hpf 0-5 [facility] Basophils/100 WBC (Bld) 0.5 % 0-1 [facility] Bilirubin [Mass/Vol] 0.60 mg/dL 0.20-1.00 [facility] Comment on above: For patients on eltr ombopag therapy, use of Dimension Upham TBIL is not recommended. Chloride [Moles/Vol] 100 mmol/L 98-107 [facility] Eosinophils/100 WBC (Bld) 2.9 % 0-5 [facility] Glucose [Mass/Vol] 99 mg/dL 74-106 [facility] Neutrophils (Bld) [#/Vol] 3.9 10*3/uL 2.0-7.7 [facility] Neutrophils/100 WBC (Bld) 62.4 % 47-70 [facility] Potassium [Moles/Vol] 4.7 mmol/L 3.5-5.1 [facility] Comment on above: Slight Hemolysis, Re sult may be falsely increased. Protein [Mass/Vol] 7.6 g/dL 6.4-8.2 [facility] Sodium [Moles/Vol] 136 mmol/L 136-145 [facility] WBC (Bld) [#/Vol] 6.2 10*3/uL 4.4-11.0 [facility] Bilirubin Test strip Ql (U)O rdered By: Faustina Garrison on 08-15-2023 Bilirubin Ql (U) Negative Negative [facility] Blood erythrocytes count (nu mber/volume)Ordered By: Faustina Garrison on 08-15-2023 RBC (Bld) [#/Vol] 4.26 10*6/uL 4.6-6.2 [facility] Blood hemoglobin measurement (mass/volume)Ordered By: Faustina Garrison on 08-15-2023 Hemoglobin (Bld) [Mass/Vol] 13.2 g/dL 13.0-16.5 [facility] Blood lymphocytes/100 leukoc ytesOrdered By: Faustina Garrison on 08-15-2023 Lymphocytes/100 WBC (Bld) 25.1 % 19-41 [facility] Blood monocytes/100 leukocyt esOrdered By: Faustina Garrison on 08-15-2023 Monocytes/100 WBC (Bld) 8.8 % 0-10 [facility] Blood platelet mean volumeOr dered By: Faustina Garrison on 08-15-2023 Platelet mean volume (Bld) [Entitic vol] 9.9 fL 6.2-12.0 [facility] Determination of erythrocyte mean corpuscular volume (MCV)Ordered By: Faustina Garrison on 08-15-2023 MCV (RBC) [Entitic vol] 90.6 fL 80-94 [facility] Hematocrit Auto (Bld) [Volum e fraction]Ordered By: Faustina Garrison on 08-15-2023 Hematocrit (Bld) [Volume fraction] 38.6 % 40-54 [facility] Ketones Test strip Ql (U)Ord ered By: Faustina Garrison on 08-15-2023 Ketones Ql (U) Negative Negative [facility] Laboratory - Chemistry and C hemistry - challengeOrdered By: Faustina Garrison on 08-15-2023 ALP [Catalytic activity/Vol] 97 U/L 45-117 [facility] ALT [Catalytic activity/Vol] 31 U/L 16-61 [facility] CO2 [Moles/Vol] 28.0 mmol/L 21.0-32.0 [facility] Globulin (S) [Mass/Vol] 3.7 g/dL 2.2-4.2 [facility] Magnesium [Mass/Vol] 2.0 mg/dL 1.6-2.6 [facility] Comment on above: Slight Hemolysis, Re sult may be falsely increased. Urea nitrogen/Creatinine [Mass ratio] 18.0 mg/mg 10-20 [facility] Laboratory - Hematology and Cell countsOrdered By: Faustina Garrison on 08-15-2023 Erythrocyte distribution width (RBC) [Entitic vol] 43.6 fL 35.1-43.9 [facility] Erythrocyte distribution width (RBC) [Ratio] 13.2 % 11.6-14.6 [facility] Immature granulocytes/100 WBC (Bld) 0.300 % 0.0-0.9 [facility] Comment on above: IG% - Immature Granu locytes (promyelocytes, myelocytes and metamyelocytes) > 1% indicates that a LEFT SHIFT is Present. MCH (RBC) [Entitic mass] 31.0 pg 27.0-32.0 [facility] Nucleated RBC/100 WBC (Bld) [Ratio] 0 % 0-5 [facility] MCHC Auto (RBC) [Mass/Vol]Or dered By: Faustina Garrison on 08-15-2023 MCHC (RBC) [Mass/Vol] 34.2 g/dL 32-36 [facility] Mucus LM Ql (Urine sed)Order ed By: Faustina Garrison on 08-15-2023 Mucus Ql (Urine sed) 0 SEEN /hpf [facility] Nitrite Test strip Ql (U)Ord ered By: Faustina Garrison on 08-15-2023 Nitrite Ql (U) Negative Negative [facility] No Panel InformationOrdered By: Faustina Garrison on 08-15-2023 Troponin I High Sensitivity 85 pg/mL 3.0-78.0 [facility] Comment on above: Please Note: New Wendy t Units and Gender Specific Reference Ranges. For more information see Policy Stat Procedure Upham High Sensitivity Troponin (TNIH) and attachments. Estimated Creatinine Clearance Calc 52.21 ml/min [facility] Estimated GFR (MDRD) Amer 82 mL/min >60 [facility] Comment on above: GFR Calc Estimated GFR (MDRD) Non-Af Amer 68 mL/min >60 [facility] Comment on above: Non- GFR Calc Platelets bldOrdered By: Natali Garrison on 08-15-2023 Platelets (Bld) [#/Vol] 242 10*3/uL 150-450 [facility] Protein Test strip Ql (U)Ord ered By: Faustina Garrison on 08-15-2023 Protein Ql (U) Negative Negative [facility] Serum or plasma albumin shagufta urement (mass/volume)Ordered By: Faustina Garrison on 08-15-2023 Albumin [Mass/Vol] 3.9 g/dL 3.2-5.0 [facility] Serum or plasma albumin/glob ulin mass ratioOrdered By: Faustina Garrison on 08-15-2023 Albumin/Globulin [Mass ratio] 1.1 {ratio} 0.9-2.4 [facility] Serum or plasma calcium shagufta urement (mass/volume)Ordered By: Faustina Garrison on 08-15-2023 Calcium [Mass/Vol] 9.3 mg/dL 8.5-10.1 [facility] Serum or plasma creatinine m easurement (mass/volume)Ordered By: Faustina Garrison on 08-15-2023 Creatinine [Mass/Vol] 1.11 mg/dL 0.70-1.30 [facility] Comment on above: The validity of the calculated GFR & GFRAA in patients over 70 years has not been determined. Clinical correlation is essential. Serum or plasma urea nitroge n measurement (mass/volume)Ordered By: Faustina Garrison on 08-15-2023 Urea nitrogen [Mass/Vol] 20 mg/dL 7-18 [facility] Squamous epithelial cells de tection in urine sediment by light microscopyOrdered By: Faustina Garrison on 08-15-2023 Epithelial cells.squamous LM Ql (Urine sed) 0-5 SEEN /hpf 0-5 [facility] Thin prep Papanicolaou smear with manual screeningOrdered By: Faustina Garrison on 08-15-2023 Thin prep Papanicolaou smear with manual screening 29 U/L 15-37 [facility] Comment on above: Slight Hemolysis, Re sult may be falsely increased. Thin prep Papanicolaou smear with manual screening 8 - [facility] Urine blood detectionOrdered By: Faustina Garrison on 08-15-2023 RBC Ql (U) Negative Negative [facility] RBC Ql (U) 0 SEEN /hpf 0-5 [facility] Urine clarityOrdered By: Natali Garrison on 08-15-2023 Clarity (U) Sl. Cloudy Clear [facility] Urine color determinationOrd ered By: Faustina Garrison on 08-15-2023 Color (U) Yellow Yellow [facility] Urine glucose detectionOrder ed By: Faustina Garrison on 08-15-2023 Glucose Ql (U) Normal mg/dl Normal [facility] Urine leukocyte esterase det ection by dipstickOrdered By: Faustina Garrison on 08-15-2023 Leukocyte esterase Test strip Ql (U) Negative Negative [facility] Urine pHOrdered By: Faustina bartlett on 08-15-2023 pH (U) 8.0 [pH] 5.0 - 8.0 [facility] Urine sediment bacteria coun t by microscopy (number/high power field)Ordered By: Faustina Garrison on 08-15-2023 Bacteria LM.HPF (Urine sed) [#/Area] 0 /[HPF] None Seen [facility] Urine specific gravity measu rementOrdered By: Faustina Garrison on 08-15-2023 Specific gravity (U) [Rel density] 1.010 1.002-1.030 [facility] Urobilinogen Auto test strip Ql (U)Ordered By: Faustina Garrison on 08-15-2023 Urobilinogen Ql (U) Normal mg/dl Normal [facility] Absolute lymphocyte countOrd ered By: Mariela Olson on 01-25-2023 Lymphocytes Auto (Unsp spec) [#/Vol] 2.09 10*3/uL 0.83-4.51 [facility] Basophil percentageOrdered B y: Mariela Olson on 01-25-2023 Basophils/100 WBC (Bld) 0.6 % 0-1 [facility] Chloride [Moles/Vol] 106 mmol/L 98-107 [facility] Eosinophils/100 WBC (Bld) 6.0 % 0-5 [facility] Glucose [Mass/Vol] 98 mg/dL 74-106 [facility] Neutrophils (Bld) [#/Vol] 3.6 10*3/uL 2.0-7.7 [facility] Neutrophils/100 WBC (Bld) 52.4 % 47-70 [facility] Potassium [Moles/Vol] 4.2 mmol/L 3.5-5.1 [facility] Sodium [Moles/Vol] 138 mmol/L 136-145 [facility] WBC (Bld) [#/Vol] 6.9 10*3/uL 4.4-11.0 [facility] Blood erythrocytes count (nu mber/volume)Ordered By: Mariela Olson on 01-25-2023 RBC (Bld) [#/Vol] 4.64 10*6/uL 4.6-6.2 [facility] Blood hemoglobin measurement (mass/volume)Ordered By: Mariela Olson on 01-25-2023 Hemoglobin (Bld) [Mass/Vol] 14.2 g/dL 13.0-16.5 [facility] Blood lymphocytes/100 leukoc ytesOrdered By: Mariela Olson on 01-25-2023 Lymphocytes/100 WBC (Bld) 30.4 % 19-41 [facility] Blood monocytes/100 leukocyt esOrdered By: Mariela Olson on 01-25-2023 Monocytes/100 WBC (Bld) 10.3 % 0-10 [facility] Blood platelet mean volumeOr dered By: Mariela Olson on 01-25-2023 Platelet mean volume (Bld) [Entitic vol] 10.0 fL 6.2-12.0 [facility] Determination of erythrocyte mean corpuscular volume (MCV)Ordered By: Marielabruce Olson on 01-25-2023 MCV (RBC) [Entitic vol] 92.7 fL 80-94 [facility] Hematocrit Auto (Bld) [Volum e fraction]Ordered By: Marielabruce Olson on 01-25-2023 Hematocrit (Bld) [Volume fraction] 43.0 % 40-54 [facility] Laboratory - Chemistry and C hemistry - challengeOrdered By: Buckingham Shahram on 01-25-2023 CO2 [Moles/Vol] 28.0 mmol/L 21.0-32.0 [facility] Magnesium [Mass/Vol] 2.3 mg/dL 1.6-2.6 [facility] Urea nitrogen/Creatinine [Mass ratio] 17.7 mg/mg 10-20 [facility] Laboratory - Hematology and Cell countsOrdered By: Buckingham Shahram on 01-25-2023 Erythrocyte distribution width (RBC) [Entitic vol] 43.2 fL 35.1-43.9 [facility] Erythrocyte distribution width (RBC) [Ratio] 12.7 % 11.6-14.6 [facility] Immature granulocytes/100 WBC (Bld) 0.300 % 0.0-0.9 [facility] Comment on above: IG% - Immature Granu locytes (promyelocytes, myelocytes and metamyelocytes) > 1% indicates that a LEFT SHIFT is Present. MCH (RBC) [Entitic mass] 30.6 pg 27.0-32.0 [facility] Nucleated RBC/100 WBC (Bld) [Ratio] 0 % 0-5 [facility] MCHC Auto (RBC) [Mass/Vol]Or dered By: Mariela Olson on 01-25-2023 MCHC (RBC) [Mass/Vol] 33.0 g/dL 32-36 [facility] No Panel InformationOrdered By: Mariela Olson on 01-25-2023 Estimated GFR (MDRD) Amer 72 mL/min >60 [facility] Comment on above: GFR Calc Estimated GFR (MDRD) Non-Af Amer 60 mL/min >60 [facility] Comment on above: Non- GFR Calc Platelets bldOrdered By: Hortencia Olson on 01-25-2023 Platelets (Bld) [#/Vol] 242 10*3/uL 150-450 [facility] Serum or plasma calcium shagufta urement (mass/volume)Ordered By: Mariela Olson on 01-25-2023 Calcium [Mass/Vol] 9.3 mg/dL 8.5-10.1 [facility] Serum or plasma creatinine m easurement (mass/volume)Ordered By: Mariela Olson on 01-25-2023 Creatinine [Mass/Vol] 1.24 mg/dL 0.70-1.30 [facility] Comment on above: The validity of the calculated GFR & GFRAA in patients over 70 years has not been determined. Clinical correlation is essential. Serum or plasma urea nitroge n measurement (mass/volume)Ordered By: Mariela Olson on 01-25-2023 Urea nitrogen [Mass/Vol] 22 mg/dL 7-18 [facility] Thin prep Papanicolaou smear with manual screeningOrdered By: Mariela Olson on 01-25-2023 Thin prep Papanicolaou smear with manual screening 4 5-15 [facility] Vital Signs Date Time Vital Sign Value Performing Clinician Facility 02-19-2025 14:49-0400 Body height 170.18 cm Mariela Olson NP-C Work Phone: [facility] 02-19-2025 14:49-0400 Body mass index (BMI) [Ratio] 22.7 kg/m2 Mariela CALEROC Work Phone: [facility] 02-19-2025 14:49-0400 Body temperature 97 [degF] Mariela Olson NP-C Work Phone: [facility] 02-19-2025 14:49-0400 Body weight 65.77 kg Mariela Shahram COMPLEX DIRECTOR-C Work Phone: [facility] 02-19-2025 14:49-0400 Diastolic blood pressure 67 mm[Hg] Mariela Shahram COMPLEX DIRECTOR-C Work Phone: [facility] 02-19-2025 14:49-0400 Heart rate 62 /min Mariela Shahram COMPLEX DIRECTOR-C Work Phone: [facility] 02-19-2025 14:49-0400 Respiratory rate 17 /min Mariela Shahram COMPLEX DIRECTOR-C Work Phone: [facility] 02-19-2025 14:49-0400 SaO2% (BldA) [Mass fraction] 97 % Mariela Shahram COMPLEX DIRECTOR-C Work Phone: [facility] 02-19-2025 14:49-0400 Systolic blood pressure 167 mm[Hg] Mariela Shahram COMPLEX DIRECTOR-C Work Phone: [facility] 02-14-2025 09:30-0400 Diastolic blood pressure 71 mm[Hg] Mariela Shahram COMPLEX DIRECTOR-C Work Phone: [facility] 02-14-2025 09:30-0400 Heart rate 63 /min Mariela Shahram COMPLEX DIRECTOR-C Work Phone: [facility] 02-14-2025 09:30-0400 Respiratory rate 16 /min Mariela Shahram COMPLEX DIRECTOR-C Work Phone: [facility] 02-14-2025 09:30-0400 Systolic blood pressure 179 mm[Hg] Mariela Shahram COMPLEX DIRECTOR-C Work Phone: [facility] 02-14-2025 09:09-0400 Body temperature 97.5 [degF] Mariela Shahram COMPLEX DIRECTOR-C Work Phone: [facility] 02-12-2025 03:00-0400 Body temperature 98.2 [degF] Mariela Shahram COMPLEX DIRECTOR-C Work Phone: [facility] 02-12-2025 03:00-0400 Diastolic blood pressure 68 mm[Hg] Mariela Shahram COMPLEX DIRECTOR-C Work Phone: [facility] 02-12-2025 03:00-0400 Heart rate 76 /min Mariela Shahram COMPLEX DIRECTOR-C Work Phone: [facility] 02-12-2025 03:00-0400 Respiratory rate 16 /min Mariela Shahram COMPLEX DIRECTOR-C Work Phone: [facility] 02-12-2025 03:00-0400 SaO2% (BldA) [Mass fraction] 95 % Mariela Shahram COMPLEX DIRECTOR-C Work Phone: [facility] 02-12-2025 03:00-0400 Systolic blood pressure 170 mm[Hg] Mariela Shahram COMPLEX DIRECTOR-C Work Phone: [facility] 02-11-2025 09:28-0400 Body height 170.18 cm Mariela Shahram COMPLEX DIRECTOR-C Work Phone: [facility] 02-11-2025 09:28-0400 Body weight 71.7 kg Mariela Shahram COMPLEX DIRECTOR-C Work Phone: [facility] 02-11-2025 02:55-0400 Diastolic blood pressure 71 mm[Hg] Mariela Shahram COMPLEX DIRECTOR-C Work Phone: [facility] 02-11-2025 02:55-0400 Heart rate 73 /min Mariela Shahram COMPLEX DIRECTOR-C Work Phone: [facility] 02-11-2025 02:55-0400 Respiratory rate 14 /min Mariela Shahram COMPLEX DIRECTOR-C Work Phone: [facility] 02-11-2025 02:55-0400 SaO2% (BldA) [Mass fraction] 98 % Mariela Shahram COMPLEX DIRECTOR-C Work Phone: [facility] 02-11-2025 02:55-0400 Systolic blood pressure 178 mm[Hg] Mariela Shahram COMPLEX DIRECTOR-C Work Phone: [facility] 02-11-2025 02:27-0400 Body temperature 98 [degF] Mariela Shahram COMPLEX DIRECTOR-C Work Phone: [facility] 02-10-2025 21:34-0400 Body height 170.18 cm Mariela Shahram COMPLEX DIRECTOR-C Work Phone: [facility] 02-10-2025 21:34-0400 Body mass index (BMI) [Ratio] 24.9 kg/m2 Mariela Shahram COMPLEX DIRECTOR-C Work Phone: [facility] 02-10-2025 21:34-0400 Body weight 72.12 kg Mariela Shahram COMPLEX DIRECTOR-C Work Phone: [facility] 01-14-2025 09:01-0400 Body height 170.18 cm Mariela Shahram COMPLEX DIRECTOR-C Work Phone: [facility] 01-14-2025 09:01-0400 Body mass index (BMI) [Ratio] 23.5 kg/m2 Mariela Shahram COMPLEX DIRECTOR-C Work Phone: [facility] 01-14-2025 09:01-0400 Body weight 68.03 kg Mariela Shahram COMPLEX DIRECTOR-C Work Phone: [facility] 01-09-2025 15:28-0400 Body height 170.18 cm Mariela Shahram COMPLEX DIRECTOR-C Work Phone: [facility] 01-09-2025 15:28-0400 Body mass index (BMI) [Ratio] 24.1 kg/m2 Mariela Shahram COMPLEX DIRECTOR-C Work Phone: [facility] 01-09-2025 15:28-0400 Body temperature 98.4 [degF] Mariela Shahram COMPLEX DIRECTOR-C Work Phone: [facility] 01-09-2025 15:28-0400 Body weight 69.9 kg Mariela Shahram COMPLEX DIRECTOR-C Work Phone: [facility] 01-09-2025 15:28-0400 Diastolic blood pressure 74 mm[Hg] Mariela Shahram COMPLEX DIRECTOR-C Work Phone: [facility] 01-09-2025 15:28-0400 Heart rate 62 /min Mariela Shahram COMPLEX DIRECTOR-C Work Phone: [facility] 01-09-2025 15:28-0400 SaO2% (BldA) [Mass fraction] 97 % Mariela Shahram COMPLEX DIRECTOR-C Work Phone: [facility] 01-09-2025 15:28-0400 Systolic blood pressure 146 mm[Hg] Mariela Shahram COMPLEX DIRECTOR-C Work Phone: [facility] 12-05-2024 14:06-0400 Diastolic blood pressure 87 mm[Hg] Mariela Shahram COMPLEX DIRECTOR-C Work Phone: [facility] 12-05-2024 14:06-0400 Heart rate 62 /min Mariela Shahram COMPLEX DIRECTOR-C Work Phone: [facility] 12-05-2024 14:06-0400 Respiratory rate 14 /min Mariela Shahram COMPLEX DIRECTOR-C Work Phone: [facility] 12-05-2024 14:06-0400 SaO2% (BldA) [Mass fraction] 96 % Mariela Shahram COMPLEX DIRECTOR-C Work Phone: [facility] 12-05-2024 14:06-0400 Systolic blood pressure 120 mm[Hg] Mariela Shahram COMPLEX DIRECTOR-C Work Phone: [facility] 12-05-2024 08:22-0400 Body height 171.45 cm Mariela Shahram COMPLEX DIRECTOR-C Work Phone: [facility] 12-05-2024 08:22-0400 Body mass index (BMI) [Ratio] 23.4 kg/m2 Mariela Shahram COMPLEX DIRECTOR-C Work Phone: [facility] 12-05-2024 08:22-0400 Body temperature 98 [degF] Mariela Shahram COMPLEX DIRECTOR-C Work Phone: [facility] 12-05-2024 08:22-0400 Body weight 68.94 kg Mariela Shahram COMPLEX DIRECTOR-C Work Phone: [facility] 12-05-2024 08:22-0400 Diastolic blood pressure 82 mm[Hg] Mariela Shahram COMPLEX DIRECTOR-C Work Phone: [facility] 12-05-2024 08:22-0400 Heart rate 62 /min Mariela Shahram COMPLEX DIRECTOR-C Work Phone: [facility] 12-05-2024 08:22-0400 Respiratory rate 13 /min Mariela Shahram COMPLEX DIRECTOR-C Work Phone: [facility] 12-05-2024 08:22-0400 SaO2% (BldA) [Mass fraction] 100 % Mariela Shahram COMPLEX DIRECTOR-C Work Phone: [facility] 12-05-2024 08:22-0400 Systolic blood pressure 185 mm[Hg] Mariela Shahram COMPLEX DIRECTOR-C Work Phone: [facility] 11-28-2024 11:09-0400 Body mass index (BMI) [Ratio] 24 kg/m2 Mariela Shahram COMPLEX DIRECTOR-C Work Phone: [facility] 11-28-2024 11:09-0400 Body temperature 98.5 [degF] Mariela Shahram COMPLEX DIRECTOR-C Work Phone: [facility] 11-28-2024 11:09-0400 Body weight 70.76 kg Mariela Shahram COMPLEX DIRECTOR-C Work Phone: [facility] 11-28-2024 11:09-0400 Diastolic blood pressure 76 mm[Hg] Mariela Shahram COMPLEX DIRECTOR-C Work Phone: [facility] 11-28-2024 11:09-0400 Heart rate 74 /min Mariela Shahram COMPLEX DIRECTOR-C Work Phone: [facility] 11-28-2024 11:09-0400 Respiratory rate 16 /min Mariela Shahram COMPLEX DIRECTOR-C Work Phone: [facility] 11-28-2024 11:09-0400 SaO2% (BldA) [Mass fraction] 100 % Mariela Shahram COMPLEX DIRECTOR-C Work Phone: [facility] 11-28-2024 11:09-0400 Systolic blood pressure 152 mm[Hg] Mariela Shahram COMPLEX DIRECTOR-C Work Phone: [facility] 11-20-2024 13:22-0400 Body temperature 98 [degF] Mariela Shahram COMPLEX DIRECTOR-C Work Phone: [facility] 11-20-2024 13:22-0400 Diastolic blood pressure 81 mm[Hg] Mariela Shahram COMPLEX DIRECTOR-C Work Phone: [facility] 11-20-2024 13:22-0400 Heart rate 86 /min Mariela Shahram COMPLEX DIRECTOR-C Work Phone: [facility] 11-20-2024 13:22-0400 Respiratory rate 18 /min Mariela Shahram COMPLEX DIRECTOR-C Work Phone: [facility] 11-20-2024 13:22-0400 SaO2% (BldA) [Mass fraction] 95 % Mariela Shahram COMPLEX DIRECTOR-C Work Phone: [facility] 11-20-2024 13:22-0400 Systolic blood pressure 139 mm[Hg] Mariela Shahram COMPLEX DIRECTOR-C Work Phone: [facility] 11-19-2024 12:37-0400 Body height 171.45 cm Mariela Shahram COMPLEX DIRECTOR-C Work Phone: [facility] 11-19-2024 12:37-0400 Body weight 68.94 kg Mariela Shahram COMPLEX DIRECTOR-C Work Phone: [facility] 11-19-2024 08:57-0400 Body mass index (BMI) [Ratio] 23.4 kg/m2 Mariela Shahram COMPLEX DIRECTOR-C Work Phone: [facility] 11-18-2024 15:02-0400 Heart rate 67 /min Mariela Shahram COMPLEX DIRECTOR-C Work Phone: [facility] 11-18-2024 15:02-0400 Respiratory rate 17 /min Mariela Shahram COMPLEX DIRECTOR-C Work Phone: [facility] 11-18-2024 15:02-0400 SaO2% (BldA) [Mass fraction] 100 % Mariela Shahram COMPLEX DIRECTOR-C Work Phone: [facility] 11-18-2024 13:14-0400 Diastolic blood pressure 86 mm[Hg] Mariela Shahram COMPLEX DIRECTOR-C Work Phone: [facility] 11-18-2024 13:14-0400 Systolic blood pressure 186 mm[Hg] Mariela Shahram COMPLEX DIRECTOR-C Work Phone: [facility] 11-18-2024 09:56-0400 Body height 170.18 cm Mariela Shahram COMPLEX DIRECTOR-C Work Phone: [facility] 11-18-2024 09:56-0400 Body mass index (BMI) [Ratio] 23.9 kg/m2 Mariela Shahram COMPLEX DIRECTOR-C Work Phone: [facility] 11-18-2024 09:56-0400 Body temperature 97.8 [degF] Mariela Shahram COMPLEX DIRECTOR-C Work Phone: [facility] 11-18-2024 09:56-0400 Body weight 69.39 kg Mariela Shahram COMPLEX DIRECTOR-C Work Phone: [facility] 11-07-2024 15:00-0400 Body temperature 98.1 [degF] Mariela Shahram COMPLEX DIRECTOR-C Work Phone: [facility] 11-07-2024 15:00-0400 Diastolic blood pressure 69 mm[Hg] Mariela Shahram COMPLEX DIRECTOR-C Work Phone: [facility] 11-07-2024 15:00-0400 Heart rate 79 /min Mariela Shahram COMPLEX DIRECTOR-C Work Phone: [facility] 11-07-2024 15:00-0400 SaO2% (BldA) [Mass fraction] 99 % Marielabruce Olson COMPLEX DIRECTOR-C Work Phone: [facility] 11-07-2024 15:00-0400 Systolic blood pressure 149 mm[Hg] Mariela Shahram COMPLEX DIRECTOR-C Work Phone: [facility] 11-07-2024 10:48-0400 Diastolic blood pressure 66 mm[Hg] Mariela Shahram COMPLEX DIRECTOR-C Work Phone: [facility] 11-07-2024 10:48-0400 Heart rate 88 /min Mariela Shahram COMPLEX DIRECTOR-C Work Phone: [facility] 11-07-2024 10:48-0400 Systolic blood pressure 153 mm[Hg] Mariela Shahram COMPLEX DIRECTOR-C Work Phone: [facility] 11-07-2024 08:22-0400 Body temperature 98 [degF] Mariela Olson COMPLEX DIRECTOR-C Work Phone: [facility] 11-07-2024 08:22-0400 Respiratory rate 16 /min Mariela Olson COMPLEX DIRECTOR-C Work Phone: [facility] 11-07-2024 07:11-0400 SaO2% (BldA) [Mass fraction] 98 % Mariela Shahram COMPLEX DIRECTOR-C Work Phone: [facility] 11-07-2024 03:38-0400 Body height 170.18 cm Marielabruce Olson COMPLEX DIRECTOR-C Work Phone: [facility] 11-07-2024 03:38-0400 Body mass index (BMI) [Ratio] 25.1 kg/m2 Mariela Shahram COMPLEX DIRECTOR-C Work Phone: [facility] 11-07-2024 03:38-0400 Body weight 72.8 kg Marielabruce Olson COMPLEX DIRECTOR-C Work Phone: [facility] 11-06-2024 01:00-0400 Diastolic blood pressure 71 mm[Hg] Mariela Olson COMPLEX DIRECTOR-C Work Phone: [facility] 11-06-2024 01:00-0400 Heart rate 77 /min Mariela Olson COMPLEX DIRECTOR-C Work Phone: [facility] 11-06-2024 01:00-0400 Respiratory rate 18 /min Marielabruce Olson COMPLEX DIRECTOR-C Work Phone: [facility] 11-06-2024 01:00-0400 SaO2% (BldA) [Mass fraction] 99 % Mariela Olson COMPLEX DIRECTOR-C Work Phone: [facility] 11-06-2024 01:00-0400 Systolic blood pressure 169 mm[Hg] Mariela Olson COMPLEX DIRECTOR-C Work Phone: [facility] 11-06-2024 00:36-0400 Body temperature 98.3 [degF] Mariela Shahram COMPLEX DIRECTOR-C Work Phone: [facility] 11-05-2024 22:21-0400 Body height 170.18 cm Mariela Cifuentesgar COMPLEX DIRECTOR-C Work Phone: [facility] 11-05-2024 22:21-0400 Body mass index (BMI) [Ratio] 25.7 kg/m2 Mariela Cifuentesgar COMPLEX DIRECTOR-C Work Phone: [facility] 11-05-2024 22:21-0400 Body weight 74.34 kg Mariela Shahram COMPLEX DIRECTOR-C Work Phone: [facility] 10-31-2024 11:16-0400 Body mass index (BMI) [Ratio] 25.9 kg/m2 Mariela Shahram COMPLEX DIRECTOR-C Work Phone: [facility] 10-31-2024 11:16-0400 Body temperature 98.4 [degF] Mariela Shahram COMPLEX DIRECTOR-C Work Phone: [facility] 10-31-2024 11:16-0400 Body weight 74.89 kg Mariela Shahram COMPLEX DIRECTOR-C Work Phone: [facility] 10-31-2024 11:16-0400 Diastolic blood pressure 83 mm[Hg] Mariela Shahram COMPLEX DIRECTOR-C Work Phone: [facility] 10-31-2024 11:16-0400 Heart rate 71 /min Mariela Shahram COMPLEX DIRECTOR-C Work Phone: [facility] 10-31-2024 11:16-0400 Respiratory rate 18 /min Mariela Shahram COMPLEX DIRECTOR-C Work Phone: [facility] 10-31-2024 11:16-0400 SaO2% (BldA) [Mass fraction] 98 % Mariela Shahram COMPLEX DIRECTOR-C Work Phone: [facility] 10-31-2024 11:16-0400 Systolic blood pressure 175 mm[Hg] Mariela Shahram COMPLEX DIRECTOR-C Work Phone: [facility] 10-24-2024 20:51-0400 Body temperature 98 [degF] Mariela Shahram COMPLEX DIRECTOR-C Work Phone: [facility] 10-24-2024 20:51-0400 Diastolic blood pressure 73 mm[Hg] Mariela Shahram COMPLEX DIRECTOR-C Work Phone: [facility] 10-24-2024 20:51-0400 Heart rate 72 /min Mariela Shahram COMPLEX DIRECTOR-C Work Phone: [facility] 10-24-2024 20:51-0400 Respiratory rate 18 /min Mariela Shahram COMPLEX DIRECTOR-C Work Phone: [facility] 10-24-2024 20:51-0400 SaO2% (BldA) [Mass fraction] 98 % Mariela Shahram COMPLEX DIRECTOR-C Work Phone: [facility] 10-24-2024 20:51-0400 Systolic blood pressure 126 mm[Hg] Mariela Shahram COMPLEX DIRECTOR-C Work Phone: [facility] 10-24-2024 17:36-0400 Body height 170 cm Marielabruce Olson COMPLEX DIRECTOR-C Work Phone: [facility] 10-24-2024 17:36-0400 Body mass index (BMI) [Ratio] 26.2 kg/m2 Mariela Shahram COMPLEX DIRECTOR-C Work Phone: [facility] 10-24-2024 17:36-0400 Body weight 75.79 kg Mariela Shahram COMPLEX DIRECTOR-C Work Phone: [facility] 10-17-2024 14:15-0400 Body mass index (BMI) [Ratio] 26.2 kg/m2 Mariela Shahram COMPLEX DIRECTOR-C Work Phone: [facility] 10-17-2024 14:15-0400 Body weight 75.74 kg Mariela Shahram COMPLEX DIRECTOR-C Work Phone: [facility] 10-17-2024 14:15-0400 Diastolic blood pressure 87 mm[Hg] Mariela Shahram COMPLEX DIRECTOR-C Work Phone: [facility] 10-17-2024 14:15-0400 Heart rate 60 /min Mariela Shahram COMPLEX DIRECTOR-C Work Phone: [facility] 10-17-2024 14:15-0400 Respiratory rate 16 /min Mariela Olson COMPLEX DIRECTOR-C Work Phone: [facility] 10-17-2024 14:15-0400 Systolic blood pressure 148 mm[Hg] Mariela Shahram COMPLEX DIRECTOR-C Work Phone: [facility] 09-07-2024 12:53-0500 Diastolic blood pressure 71 mm[Hg] Darrel Pringle MD [facility] 09-07-2024 12:53-0500 Systolic blood pressure 159 mm[Hg] Darrel Pringle MD [facility] 08-08-2024 09:55-0500 Body mass index (BMI) [Ratio] 26.9 kg/m2 Mariela Shahram COMPLEX DIRECTOR-C Work Phone: [facility] 08-08-2024 09:55-0500 Body temperature 98.5 [degF] Mariela Shahram COMPLEX DIRECTOR-C Work Phone: [facility] 08-08-2024 09:55-0500 Body weight 78.18 kg Mariela Shahram COMPLEX DIRECTOR-C Work Phone: [facility] 08-08-2024 09:55-0500 Diastolic blood pressure 90 mm[Hg] Mariela Shahram COMPLEX DIRECTOR-C Work Phone: [facility] 08-08-2024 09:55-0500 Heart rate 81 /min Mariela Shahram COMPLEX DIRECTOR-C Work Phone: [facility] 08-08-2024 09:55-0500 Respiratory rate 18 /min Mariela Shahram COMPLEX DIRECTOR-C Work Phone: [facility] 08-08-2024 09:55-0500 SaO2% (BldA) [Mass fraction] 99 % Mariela Shahram COMPLEX DIRECTOR-C Work Phone: [facility] 08-08-2024 09:55-0500 Systolic blood pressure 196 mm[Hg] Mariela Shahram COMPLEX DIRECTOR-C Work Phone: [facility] 07-18-2024 09:20-0500 Body mass index (BMI) [Ratio] 26.5 kg/m2 Mariela Shahram COMPLEX DIRECTOR-C Work Phone: [facility] 07-18-2024 09:20-0500 Body temperature 97.8 [degF] Mariela Shahram COMPLEX DIRECTOR-C Work Phone: [facility] 07-18-2024 09:20-0500 Body weight 76.91 kg Mariela Shahram COMPLEX DIRECTOR-C Work Phone: [facility] 07-18-2024 09:20-0500 Diastolic blood pressure 88 mm[Hg] Mariela Shahram COMPLEX DIRECTOR-C Work Phone: [facility] [facility] 07-18-2024 09:20-0500 Heart rate 71 /min Mariela Shahram COMPLEX DIRECTOR-C Work Phone: [facility] 07-18-2024 09:20-0500 Respiratory rate 16 /min Mariela Shahram COMPLEX DIRECTOR-C Work Phone: [facility] 07-18-2024 09:20-0500 SaO2% (BldA) [Mass fraction] 97 % Mariela Shahram COMPLEX DIRECTOR-C Work Phone: [facility] 07-18-2024 09:20-0500 Systolic blood pressure 193 mm[Hg] Mariela Shahram COMPLEX DIRECTOR-C Work Phone: [facility] 07-04-2024 14:18-0500 Body mass index (BMI) [Ratio] 26.4 kg/m2 Mariela Shahram COMPLEX DIRECTOR-C Work Phone: [facility] 07-04-2024 14:18-0500 Body temperature 98.2 [degF] Mariela Shahram COMPLEX DIRECTOR-C Work Phone: [facility] 07-04-2024 14:18-0500 Body weight 76.43 kg Mariela Shahram COMPLEX DIRECTOR-C Work Phone: [facility] 07-04-2024 14:18-0500 Diastolic blood pressure 75 mm[Hg] Mariela Shahram COMPLEX DIRECTOR-C Work Phone: [facility] 07-04-2024 14:18-0500 Heart rate 58 /min Mariela Shahram COMPLEX DIRECTOR-C Work Phone: [facility] 07-04-2024 14:18-0500 Respiratory rate 18 /min Mariela Shahram COMPLEX DIRECTOR-C Work Phone: [facility] 07-04-2024 14:18-0500 SaO2% (BldA) [Mass fraction] 100 % Mariela Shahram COMPLEX DIRECTOR-C Work Phone: [facility] 07-04-2024 14:18-0500 Systolic blood pressure 165 mm[Hg] Mariela Shahram COMPLEX DIRECTOR-C Work Phone: [facility] 12-11-2023 08:05-0400 Body temperature 97.9 [degF] Dr. Neville Islas Work Phone: [facility] 12-11-2023 08:05-0400 Diastolic blood pressure 70 mm[Hg] Dr. Neville Islas Work Phone: [facility] 12-11-2023 08:05-0400 Heart rate 59 /min Dr. Neville Islas Work Phone: [facility] 12-11-2023 08:05-0400 Respiratory rate 13 /min Dr. Neville Islas Work Phone: [facility] 12-11-2023 08:05-0400 SaO2% (BldA) [Mass fraction] 95 % Dr. Neville Islas Work Phone: [facility] 12-11-2023 08:05-0400 Systolic blood pressure 151 mm[Hg] Dr. Neville Islas Work Phone: [facility] 12-11-2023 02:39-0400 Body height 172.[address] Neville Islas Work Phone: [facility] 12-11-2023 02:39-0400 Body mass index (BMI) [Ratio] 29 kg/m2 Dr. Neville Islas Work Phone: [facility] 12-11-2023 02:39-0400 Body weight 86.[address] Neville Islas Work Phone: [facility] 08-16-2023 16:10-0500 Body temperature 97.7 [degF] Dr. Neville Islas Work Phone: [facility] 08-16-2023 16:10-0500 Diastolic blood pressure 69 mm[Hg] Dr. Neville Islas Work Phone: [facility] 08-16-2023 16:10-0500 Heart rate 64 /min Dr. Neville Islas Work Phone: [facility] 08-16-2023 16:10-0500 Respiratory rate 18 /min Dr. Neville Islas Work Phone: [facility] 08-16-2023 16:10-0500 SaO2% (BldA) [Mass fraction] 100 % Dr. Neville Islas Work Phone: [facility] 08-16-2023 16:10-0500 Systolic blood pressure 154 mm[Hg] Dr. Neville Islas Work Phone: [facility] 08-16-2023 13:54-0500 Body weight 78.[address] Neville Islas Work Phone: [facility] 08-15-2023 22:26-0500 Body mass index (BMI) [Ratio] 25.5 kg/m2 Dr. Neville Islas Work Phone: [facility] 08-15-2023 21:10-0500 Diastolic blood pressure 80 mm[Hg] [facility] 08-15-2023 21:10-0500 Heart rate 71 /min [facility] 08-15-2023 21:10-0500 Respiratory rate 18 /min [facility] 08-15-2023 21:10-0500 SaO2% (BldA) [Mass fraction] 98 % [facility] 08-15-2023 21:10-0500 Systolic blood pressure 187 mm[Hg] [facility] 08-15-2023 14:37-0500 Body height 172.72 cm [facility] 08-15-2023 14:37-0500 Body mass index (BMI) [Ratio] 27.3 kg/m2 [facility] 08-15-2023 14:37-0500 Body temperature 95.5 [degF] [facility] 08-15-2023 14:37-0500 Body weight 81.6 kg [facility] Encounters Encounter Date Encounter Type Care Provider Facility Start: 02-21-2025 ambulatory Nicho Maec lity:[facility] Start: 02-19-2025 End: 02-19-2025 ambulatory Mariela FRANCISCO Work Phone: -[facility] Start: 02-19-2025 End: 02-19-2025 Dr. Nicho Cantor MD -[facility] Work Phone: Start: 02-19-2025 Jackelyn Camarillo COMPLEX DIRECTOR-C -[facility] Start: 02-19-2025 ambulatory Julissa Wetzel Facility :[facility] Start: 02-14-2025 Encounter for other preprocedural examination Du Thomas [facility] Start: 02-14-2025 Mariela Olson COMPLEX DIRECTOR-C [facility] Work Phone: Start: 02-14-2025 ambulatory Mariela Olson Facility:[facility] Start: 02-12-2025 Dr. Darrel Galvan MD -[facility] Work Phone: Start: 02-11-2025 ambulatory Ramirez Mello ility:[facility] Start: 02-11-2025 End: 02-12-2025 Evaluation and management of inpatient Mariela Olson COMPLEX DIRECTOR-C Work Phone: -Intensive Care Unit Start: 02-11-2025 End: 02-12-2025 Dr. Ramirez Horne DO -Intensive Care Unit Work Phone: Start: 02-07-2025 End: 02-07-2025 ambulatory Mariela Olson COMPLEX DIRECTOR-C Work Phone: -Laboratory Specimen Start: 02-07-2025 End: 02-07-2025 Dr. Neville Islas DO -Laboratory Specime n Work Phone: Start: 02-07-2025 End: 02-07-2025 ambulatory [facility] Start: 02-07-2025 End: 02-07-2025 ambulatory Neville Islas Facility:[facility] Start: 01-29-2025 End: 02-05-2025 Telephone encounter Alvarez Pena MD Work Phone: [facility] Cardiology [facility] Comment on above: Orders (CTA TAVR) Start: 01-18-2025 Encounter for preprocedural cardiovascular examination Adrian Flores [facility] Start: 01-14-2025 End: 01-14-2025 ambulatory Mariela Olson COMPLEX DIRECTOR-C Work Phone: [facility] Work Phone: Start: 01-14-2025 End: 01-14-2025 Dr. Adrian Flores MD -[facility] Work Phone: Start: 01-14-2025 End: 01-14-2025 ambulatory Adrian Flores Facility:[facility] Start: 01-11-2025 ambulatory Darrel Pringle [facility] Start: 01-09-2025 End: 01-09-2025 Dr. Brenda Araujo MD -[facility] Work Phone: Start: 01-09-2025 End: 01-09-2025 ambulatory Mariela Shahram COMPLEX DIRECTOR-C Work Phone: [facility] Work Phone: Start: 01-06-2025 ambulatory Adrian Flores Facility:[facility] Start: 01-06-2025 Dr. Adrian Flores MD -[facility] Start: 12-14-2024 End: 12-14-2024 ambulatory Mariela Olson COMPLEX DIRECTOR-C Work Phone: [facility] Work Phone: Start: 12-14-2024 End: 12-14-2024 Malinda Webster COMPLEX DIRECTOR-C -Laboratory Work Phone: Start: 12-14-2024 End: 12-14-2024 ambulatory Brenda Araujo Facility:[facility] Start: 12-11-2024 Encounter for preprocedural laboratory examination Brenda Araujo [facility] Start: 12-05-2024 End: 12-05-2024 ambulatory Mariela Olson COMPLEX DIRECTOR-C Work Phone: [facility] Work Phone: Start: 12-05-2024 End: 12-05-[address] Brenda Araujo MD -[facility] Work Phone: Start: 12-05-2024 End: 12-05-2024 Dr. Brenda GarciaCat Scan, [facility] Work Phone: Start: 12-04-2024 End: 12-04-2024 Patient encounter procedure Ari Silvestre [facility] Work Phone: Start: 12-04-2024 End: 12-04-2024 Ari Silvestre DO [facility] Work Phone: Start: 12-04-2024 End: 12-05-2024 ambulatory [facility] Facility:[facility] Start: 11-30-2024 End: 11-30-2024 ambulatory Mariela Olson COMPLEX DIRECTOR-C Work Phone: [facility] Work Phone: Start: 11-30-2024 End: 11-30-[address] Brenda GarciaCat Scan, [facility] Work Phone: Start: 11-30-2024 End: 11-30-2024 Dr. Brenda GarciaCat Scan, [facility] Work Phone: Start: 11-30-2024 End: 11-30-2024 ambulatory [facility] Facility:[facility] Start: 11-28-2024 ambulatory Adrian Flores [facility] Start: 11-28-2024 Non-patient / Non-visit Dr. Norberto DAVIS -[facility] Start: 11-28-2024 End: 11-28-2024 Patient encounter procedure Malinda Webster COMPLEX DIRECTOR-C -Cardiovascular Services Work Phone: Start: 11-28-2024 End: 11-28-2024 Dr. Adrian Flores MD -[facility] Start: 11-28-2024 End: 11-28-[address] Brenda Araujo MD -[facility] Work Phone: Start: 11-28-2024 End: 11-28-2024 Dr. Brenda Araujo MD -[facility] Work Phone: Start: 11-28-2024 End: 11-28-2024 ambulatory Brenda Araujo Facility:[facility] Start: 11-28-2024 End: 11-28-2024 ambulatory Malinda Webster NP Facility:[facility] Start: 11-20-2024 Non-patient / Non-visit Dr. Kalen Jang [facility] Work Phone: Start: 11-20-2024 Dr. Neville singh [facility] Work Phone: Start: 11-19-2024 Non-patient / Non-visit Dr. Kalen Jang [facility] Work Phone: Start: 11-19-2024 Dr. Neville singh DO [facility] Work Phone: Start: 11-19-2024 Non-patient / Non-visit Ari Sage nd DO -[facility] Start: 11-19-2024 Ari Silvestre DO -[facility] Start: 11-18-2024 Non-patient / Non-visit Dr. Marybel Schrader MD -[facility] Work Phone: Start: 11-18-2024 ambulatory Kelvin Schrader Fac ility:[facility] Start: 11-18-2024 End: 11-20-2024 Evaluation and management of inpatient Dr. Kelvin Schrader MD -[facility] Work Phone: Start: 11-18-2024 End: 11-20-2024 Dr. Neville Jang DO -[facility] Work Phone: Start: 11-09-2024 ambulatory Darrel Pringle [facility] Start: 11-09-2024 Office outpatient vi sit 25 minutes Darrel Pringle [facility] Start: 11-07-2024 Non-patient / Non-visit Dr. Stevie francis DO [facility] Work Phone: Start: 11-07-2024 Dr. Stevie MOREJONWo [facility] Work Phone: Start: 11-07-2024 End: 11-07-2024 [facility] Start: 11-07-2024 End: 11-07-2024 Non-patient / Non-visit Dr. Adrian Flores MD -[facility] Work Phone: Start: 11-07-2024 End: 11-07-2024 Dr. Adrian Flores MD -[facility] Work Phone: Start: 11-06-2024 Non-patient / Non-visit Ari Sage nd DO -[facility] Start: 11-06-2024 Ari Friend DO -[facility] Start: 11-06-2024 ambulatory Ari Nirmala Facility :[facility] Start: 11-06-2024 End: 11-07-2024 Evaluation and management of inpatient Dr. Darrel Carpenter DO -Progressive Care Unit Work Phone: Start: 11-06-2024 End: 11-07-2024 Dr. Stevie [facility] Work Phone: Start: 11-02-2024 End: 01-12-2025 Telephone encounter Papi Hernandez MD Work Phone: Hematology/Oncology Comment on above: Patient Question Start: 10-31-2024 End: 10-31-[address] [facility] Work Phone: Start: 10-31-2024 End: 10-31-2024 Dr. Papi [facility] Work Phone: Start: 10-31-2024 End: 10-31-2024 ambulatory Marielabruce Olson Facility:[facility] Start: 10-24-2024 End: 10-24-2024 Dr. Jerry Hightower DO -Emergency Departde nt Work Phone: Start: 10-24-2024 End: 10-24-2024 Emergency department patient visit Mariela Olson COMPLEX DIRECTOR-C Work Phone: -Emergency Department Work Phone: Start: 10-24-2024 End: 10-24-[address] Papi Hernandez MD -[facility] Work Phone: Start: 10-24-[address] Papi Hernandez MD -[facility] Start: 10-24-2024 End: 10-24-2024 Dr. Papi Hernandez MD -[facility] Start: 10-24-2024 End: 10-24-2024 ambulatory Mariela Shahram COMPLEX DIRECTOR-C Work Phone: [facility] Work Phone: Start: 10-24-2024 End: 10-24-2024 ambulatory [facility] Facility:[facility] Start: 10-17-2024 End: 10-17-2024 ambulatory [facility] COMPLEX DIRECTOR-C Work Phone: [facility] Work Phone: Start: 10-17-2024 End: 10-17-2024 Patient encounter procedure Malinda Webster COMPLEX DIRECTOR-C -Laboratory Work Phone: Start: 10-17-2024 End: 10-17-2024 Malinda Webster COMPLEX DIRECTOR-C -Laboratory Work Phone: Start: 10-17-2024 End: 10-17-2024 Patient encounter procedure Malinda Webster COMPLEX DIRECTOR-C -[facility] Work Phone: Start: 10-17-2024 End: 10-17-2024 Malinda Webster COMPLEX DIRECTOR-C -[facility] Work Phone: Start: 10-17-2024 End: 10-17-2024 ambulatory [facility] Facility:[facility] Start: 10-17-2024 End: 10-17-2024 ambulatory Malinda Webster COMPLEX DIRECTOR Facility:[facility] Start: 09-07-2024 End: 09-07-2024 Darrel Pringle Work Phone: [facility] Start: 09-07-2024 ambulatory Darrel Pringle [facility] Start: 09-05-2024 End: 09-05-2024 Patient encounter procedure Mariela Olson COMPLEX DIRECTOR-C -Laboratory, [facility] Start: 09-05-2024 End: 09-05-2024 Mariela Olson COMPLEX DIRECTOR-C -Laboratory, [facility] Start: 09-05-2024 End: 09-05-2024 ambulatory [facility] Facility:[facility] Start: 08-08-2024 End: 08-08-[address] Papi Hernandez MD -[facility] Work Phone: Start: 08-08-2024 End: 08-08-2024 Dr. Papi Hernandez MD -[facility] Work Phone: Start: 08-08-2024 End: 08-08-2024 ambulatory [facility] Start: 07-18-2024 End: 07-18-2024 Patient encounter procedure Selam Craig NP-C -[facility] [place] Work Phone: Start: 07-18-2024 End: 07-18-2024 ambulatory Mariela Shahram Facility:[facility] Start: 07-13-2024 End: 07-13-2024 Darrel Pringle Work Phone: [facility] [place] Start: 07-13-2024 ambulatory Darrel Pringle [facility] [place] [facility] Start: 07-04-2024 End: 07-04-[address] Papi Hernandez MD -[facility] Work Phone: Start: 07-04-2024 End: 07-04-2024 ambulatory [facility] Start: 07-04-2024 Encounter for other preprocedural examination Papi Hernandez [facility] Start: 06-22-2024 [facility] Start: 06-22-2024 End: 06-22-2024 ambulatory Du Thomas Facility:[facility] Start: 06-20-2024 End: 06-20-2024 ambulatory Du Thomas Facility:[facility] Start: 06-18-2024 ambulatory [facility] Start: 06-12-2024 End: 06-12-2024 ambulatory Mariela Shahram [facility] Start: 06-08-2024 End: 06-10-2024 Evaluation and management of inpatient Lucy Polanco Facility:[facility] Start: 06-08-2024 ambulatory Lucy Polanco [facility] Start: 06-07-2024 End: 06-07-2024 Emergency department patient visit Jerry Hightower Facility:[facility] Start: 06-07-2024 End: 06-08-2024 ambulatory Mariela Shahram Facility:[facility] Start: 05-31-2024 End: 05-31-2024 ambulatory Mariela Olson Facility:[facility] Start: 05-25-2024 End: 05-25-2024 Darrel Pringle Work Phone: [facility] Start: 05-25-2024 ambulatory Darrel Pringle [facility] Start: 05-16-2024 End: 05-16-2024 ambulatory Mariela Olson Facility:[facility] Start: 05-10-2024 End: 05-10-2024 ambulatory Du Thomas Facility:[facility] Start: 05-07-2024 End: 05-07-2024 ambulatory Marielabruce Olson Facility:[facility] Start: 04-27-2024 ambulatory Du Thomas Facility: [facility] Start: 04-27-2024 End: 05-01-2024 Evaluation and management of inpatient Du Thomas Facility:[facility] Start: 04-27-2024 ambulatory Du Thomas Facility: [facility] Start: 04-25-2024 Encounter for preprocedural cardiovascular examination Adrian Flores [facility] Start: 04-25-2024 End: 04-25-2024 ambulatory Mariela Olson Facility:[facility] Start: 04-23-2024 Patient encounter status Mariela Olson COMPLEX DIRECTOR-C Work Phone: [facility] Comment on above: Right hemicolectomy 04/27/2024 Start: 04-20-2024 End: 04-20-2024 ambulatory Du Thomas Facility:[facility] Start: 04-13-2024 ambulatory Ari Silvestre Facility :[facility] Start: 04-13-2024 ambulatory Mariela Olson [facility] Start: 04-12-2024 End: 04-12-2024 ambulatory Danette Pinaan Facility:[facility] Start: 04-12-2024 ambulatory Ari Silvestre Facility :[facility] Start: 04-12-2024 End: 04-15-2024 Evaluation and management of inpatient Mariela Olson Facility:[facility] Start: 04-11-2024 End: 04-11-2024 ambulatory [facility] Facility:[facility] Start: 03-30-2024 End: 03-30-2024 Darrel Pringle Work Phone: [facility] Start: 03-30-2024 ambulatory Darrel Pringle [facility] Start: 02-10-2024 End: 02-10-2024 Darrel Pringle Work Phone: [facility] Start: 12-21-2023 End: 12-21-2023 Darrel Pringle Work Phone: [facility] Start: 12-11-2023 End: 12-11-2023 Emergency department patient visit Dr. Neville Islas Work Phone: [facility]-Emergency Department Work Phone: Start: 10-26-2023 End: 10-26-2023 Darrel Pringle Work Phone: [facility] Start: 08-24-2023 End: 08-24-2023 Darrel Pringle Work Phone: [facility] Start: 08-22-2023 End: 08-22-[address] Neville Islas Work Phone: [facility] Start: 08-16-2023 Non-patient / Non-visit Dr. Kalen Islas Work Phone: [facility] Work Phone: Start: 08-16-2023 Non-patient / Non-visit Dr. Kalen Islas Work Phone: [facility] Start: 08-16-2023 Non-patient / Non-visit Dr. Kalen Islas Work Phone: [facility] Start: 08-15-2023 End: 08-15-2023 Non-patient / Non-visit Dr. Neville Islas Work Phone: [facility] Work Phone: Start: 08-15-2023 End: 08-16-2023 Evaluation and management of inpatient [facility]-Progressive Care Unit Work Phone: Start: 08-15-2023 Non-patient / Non-visit Dr. Kalen Islas Work Phone: [facility] Work Phone: Start: 06-29-2023 End: 06-29-2023 Darrel Pringle Work Phone: [facility] Start: 05-11-2023 End: 05-11-2023 Darrel Pringle Work Phone: [facility] Start: 03-30-2023 End: 03-30-2023 Darrel Pringle Work Phone: [facility] Start: 02-23-2023 End: 02-23-2023 Darrel Pringle Work Phone: [facility] Start: 01-25-2023 End: 01-25-2023 ambulatory [facility] Work Phone: Start: 01-25-2023 End: 01-25-2023 Patient encounter procedure [facility] Start: 01-19-2023 End: 01-19-2023 Darrel Pringle Work Phone: [facility] Start: 01-05-2023 End: 01-05-2023 Darrel Pringle Work [...] encounter status Beata Herrera MD Work Phone: [facility] Work Phone: Procedures Date Procedure Procedure Detail Performing Clinician Start: 02-14-2025 Centesis Mariela Olson COMPLEX DIRECTOR-C Work Phone: Start: 02-12-2025 Blood count smear mcrscp w/mnl difrntl wbc count Mariela Olson COMPLEX DIRECTOR-C Work Phone: Start: 02-12-2025 Estimated creatinine clearance Mariela burrell COMPLEX DIRECTOR-C Work Phone: Start: 02-12-2025 Mean corpuscular hemoglobin concentration determination Mariela Olson COMPLEX DIRECTOR-C Work Phone: Start: 02-12-2025 Nucleated red blood cell count procedure Mariela Olson COMPLEX DIRECTOR-C Work Phone: Start: 02-12-2025 Platelet mean volume determination Mariela Olson COMPLEX DIRECTOR-C Work Phone: Start: 02-12-2025 Serum inorganic phosphate measurement Mariela Olson COMPLEX DIRECTOR-C Work Phone: Start: 02-11-2025 Computed tomography of abdomen and pelvis with intravenous contrast Mariela Olson COMPLEX DIRECTOR-C Work Phone: Start: 02-11-2025 Centesis Mariela Olson COMPLEX DIRECTORJoseC Work Phone: Start: 02-10-2025 Blood count smear mcrscp w/mnl difrntl wbc count Mariela Olson COMPLEX DIRECTOR-C Work Phone: Start: 02-10-2025 Calculation of international normalized ratio Mariela Olson COMPLEX DIRECTOR-C Work Phone: Start: 02-10-2025 Estimated creatinine clearance Mariela burrell COMPLEX DIRECTOR-C Work Phone: Start: 02-10-2025 Mean corpuscular hemoglobin concentration determination Mariela Olson COMPLEX DIRECTOR-C Work Phone: Start: 02-10-2025 Nucleated red blood cell count procedure Mariela Olson COMPLEX DIRECTOR-C Work Phone: Start: 02-10-2025 Platelet mean volume determination Mariela Olson COMPLEX DIRECTOR-C Work Phone: Start: 02-10-2025 Triacylglycerol lipase measurement Mariela Olson COMPLEX DIRECTOR-C Work Phone: Start: 02-10-2025 Urine microscopy: red cells Mariela Olson COMPLEX DIRECTOR-C Work Phone: Start: 02-10-2025 Urnls dip stick/tablet reagent auto microscopy Mariela Olson COMPLEX DIRECTOR-C Work Phone: Start: 02-10-2025 Plain chest X-ray Mariela Olson COMPLEX DIRECTOR-C Work Phone: Start: 02-07-2025 Urine culture Mariela Olsno COMPLEX DIRECTOR-C Work Phone: Start: 02-07-2025 Urnls dip stick/tablet reagent auto microscopy Mariela Olson COMPLEX DIRECTOR-C Work Phone: Start: 01-11-2025 Computerized ophthalmic imaging retina Darrel Pringle Start: 01-11-2025 Eylea 1mg Pre-filled Syringe Darrel howard Start: 01-11-2025 Intravitreal njx pharmacologic agt spx Darrel Pringle Start: 01-08-2025 Blood count smear mcrscp w/mnl difrntl wbc count Mariela Olson COMPLEX DIRECTOR-C Work Phone: Start: 01-08-2025 Mean corpuscular hemoglobin concentration determination Mariela Olson COMPLEX DIRECTOR-C Work Phone: Start: 01-08-2025 Nucleated red blood cell count procedure Mariela Olson COMPLEX DIRECTOR-C Work Phone: Start: 01-08-2025 Platelet mean volume determination Mariela Olson COMPLEX DIRECTOR-C Work Phone: Start: 12-14-2024 X-ray of chest, PA and lateral views Mariela Olson COMPLEX DIRECTOR-C Work Phone: Start: 12-14-2024 Blood count smear mcrscp w/mnl difrntl wbc count Mariela Olson COMPLEX DIRECTOR-C Work Phone: Start: 12-14-2024 Mean corpuscular hemoglobin concentration determination Mariela Olson COMPLEX DIRECTOR-C Work Phone: Start: 12-14-2024 Nucleated red blood cell count procedure Mariela Olson COMPLEX DIRECTOR-C Work Phone: Start: 12-14-2024 Platelet mean volume determination Mariela Olson COMPLEX DIRECTOR-C Work Phone: Start: 12-14-2024 Total iron binding capacity measurement Mariela Olson COMPLEX DIRECTOR-C Work Phone: Start: 12-05-2024 Biopsy/Inj or Needle Placement Mariela burrell COMPLEX DIRECTOR-C Work Phone: Start: 12-05-2024 Mariela Olson COMPLEX DIRECTOR-C Work Phone: Start: 12-05-2024 Blood count smear mcrscp w/mnl difrntl wbc count Mariela Olson COMPLEX DIRECTOR-C Work Phone: Start: 12-05-2024 Calculation of international normalized ratio Mariela Olson COMPLEX DIRECTOR-C Work Phone: Start: 12-05-2024 Mean corpuscular hemoglobin concentration determination Marielabruce Olson COMPLEX DIRECTOR-C Work Phone: Start: 12-05-2024 Nucleated red blood cell count procedure Mariela Olson COMPLEX DIRECTOR-C Work Phone: Start: 12-05-2024 Platelet mean volume determination Marielabruce Olson COMPLEX DIRECTOR-C Work Phone: Start: 11-30-2024 CT of thorax with contrast Mariela Olson COMPLEX DIRECTOR-C Work Phone: Start: 11-20-2024 Blood count smear mcrscp w/mnl difrntl wbc count Mariela Olson COMPLEX DIRECTOR-C Work Phone: Start: 11-20-2024 Mean corpuscular hemoglobin concentration determination Mariela Olson COMPLEX DIRECTOR-C Work Phone: Start: 11-20-2024 Nucleated red blood cell count procedure Mariela Olson COMPLEX DIRECTOR-C Work Phone: Start: 11-20-2024 Platelet mean volume determination Mariela Olson COMPLEX DIRECTOR-C Work Phone: Start: 11-19-2024 Colonoscopy Mariela Olson COMPLEX DIRECTOR-C Work Phone: Start: 11-19-2024 Estimated creatinine clearance Mariela burrell COMPLEX DIRECTOR-C Work Phone: Start: 11-18-2024 Computed tomography of abdomen and pelvis with intravenous contrast Mariela Olson COMPLEX DIRECTOR-C Work Phone: Start: 11-09-2024 Computerized ophthalmic imaging retina Darrel Pringle Start: 11-09-2024 Eylea Free Drug Darrel Pringle Start: 11-09-2024 Intravitreal njx pharmacologic agt spx Darrel Pringle Start: 11-07-2024 Blood count smear mcrscp w/mnl difrntl wbc count Mariela Olson COMPLEX DIRECTOR-C Work Phone: Start: 11-07-2024 Estimated creatinine clearance Mariela burrell COMPLEX DIRECTOR-C Work Phone: Start: 11-07-2024 Mean corpuscular hemoglobin concentration determination Mariela Olson COMPLEX DIRECTOR-C Work Phone: Start: 11-07-2024 Nucleated red blood cell count procedure Mariela Olson COMPLEX DIRECTOR-C Work Phone: Start: 11-07-2024 Platelet mean volume determination Mariela Olson COMPLEX DIRECTOR-C Work Phone: Start: 11-06-2024 Flexible fiberoptic sigmoidoscopy Mariela Olson COMPLEX DIRECTOR-C Work Phone: Start: 11-06-2024 Clostridium difficile detection Mariela cruz COMPLEX DIRECTOR-C Work Phone: Start: 11-06-2024 Lactoferrin measurement Mariela Olson COMPLEX DIRECTOR- C Work Phone: Start: 11-06-2024 Nucleic acid assay Mariela Cifuentesgar COMPLEX DIRECTOR-C Work Phone: Start: 11-06-2024 Ova OR parasites identification Mariela cruz COMPLEX DIRECTOR-C Work Phone: Start: 11-06-2024 Ova&parasites direct smears concentration & id Mariela Olson COMPLEX DIRECTOR-C Work Phone: Start: 11-06-2024 Iadna-dna/rna gi pthgn multiplex probe tq 6-11 Mariela Olson COMPLEX DIRECTOR-C Work Phone: Start: 11-06-2024 Osmolality measurement, serum Mariela Schwartz ar COMPLEX DIRECTOR-C Work Phone: Start: 11-06-2024 Serum inorganic phosphate measurement Mariela Cifuentesgar COMPLEX DIRECTOR-C Work Phone: Start: 11-06-2024 Total iron binding capacity measurement Mariela Olson COMPLEX DIRECTOR-C Work Phone: Start: 11-05-2024 Computed tomography of abdomen and pelvis with contrast Mariela Olson COMPLEX DIRECTOR-C Work Phone: Start: 11-05-2024 Assay of lactate Mariela Olson COMPLEX DIRECTOR-C Work Phone: Start: 11-05-2024 Calculation of international normalized ratio Mariela Olson COMPLEX DIRECTOR-C Work Phone: Start: 11-05-2024 Measurement of occult blood in stool specimen using immunoassay Mariela Olson NP-C Work Phone: Start: 10-24-2024 Urine microscopy: red cells Mariela Olson COMPLEX DIRECTOR-C Work Phone: Start: 10-24-2024 Urnls dip stick/tablet reagent auto microscopy Mariela Olson COMPLEX DIRECTOR-C Work Phone: Start: 10-24-2024 Blood count smear mcrscp w/mnl difrntl wbc count Mariela Olson COMPLEX DIRECTOR-C Work Phone: Start: 10-24-2024 Estimated creatinine clearance Mariela burrell COMPLEX DIRECTOR-C Work Phone: Start: 10-24-2024 Mean corpuscular hemoglobin concentration determination Mariela Olson COMPLEX DIRECTOR-C Work Phone: Start: 10-24-2024 Nucleated red blood cell count procedure Mariela Olson COMPLEX DIRECTOR-C Work Phone: Start: 10-24-2024 Platelet mean volume determination Mariela Olson COMPLEX DIRECTOR-C Work Phone: Start: 10-24-2024 Triacylglycerol lipase measurement Mariela Olson COMPLEX DIRECTOR-C Work Phone: Start: 10-24-2024 Ultrasound of scrotum with Doppler and color flow imaging Mariela Olson COMPLEX DIRECTOR-C Work Phone: Start: 10-24-2024 Computed tomography of abdomen and pelvis with intravenous contrast Mariela Olson COMPLEX DIRECTOR-C Work Phone: Start: 10-24-2024 Carcinoembryonic antigen cea Mariela Ryder r COMPLEX DIRECTOR-C Work Phone: Comment on above: Nonsmokers <3.9 Smokers <5.6[employer] Electrochemiluminescence Immunoassay(ECLIA)Values obtained with different assay methods or kitscannot be used interchangeably. Results cannot beinterpreted as absolute evidence of the presence orabsence of malignant disease.Performed at: [address] [id number] Director: Jian Paredes PhD, Phone: [phone] Start: 10-24-2024 Estimated creatinine clearance Mariela burrell COMPLEX DIRECTOR-C Work Phone: Start: 10-24-2024 Mean corpuscular hemoglobin concentration determination Mariela Olson COMPLEX DIRECTOR-C Work Phone: Start: 10-24-2024 Nucleated red blood cell count procedure Mariela Olson COMPLEX DIRECTOR-C Work Phone: Start: 10-24-2024 Platelet mean volume determination Mariela Olson COMPLEX DIRECTOR-C Work Phone: Start: 10-24-2024 Procedure Mariela Olson COMPLEX DIRECTOR-C Work Phone: Start: 10-17-2024 Urine microscopy: red cells Mariela Olson COMPLEX DIRECTOR-C Work Phone: Start: 10-17-2024 Urnls dip stick/tablet reagent auto microscopy Mariela Olson COMPLEX DIRECTOR-C Work Phone: Start: 09-07-2024 End: 09-07-2024 Computerized ophthalmic imaging retina Darrel Pringle MD Start: 09-07-2024 End: 09-07-2024 Eylea 1mg Pre-filled Syringe Darrel howard MD Start: 09-07-2024 Eylea 1mg Pre-filled Syringe Darrel howard Start: 09-07-2024 End: 09-07-2024 Eylea Free Drug Darrel Pringle MD Start: 09-07-2024 End: 09-07-2024 Intravitreal njx pharmacologic agt spx Darrel Pringle MD Start: 09-05-2024 Albumin/Globulin ratio Mariela Olson COMPLEX DIRECTOR-C Work Phone: Start: 09-05-2024 Anion gap measurement Mariela Olson COMPLEX DIRECTOR-C Work Phone: Start: 09-05-2024 Blood count smear mcrscp w/mnl difrntl wbc count Mariela Olson COMPLEX DIRECTOR-C Work Phone: Start: 09-05-2024 BUN/Creatinine ratio Mariela Olson COMPLEX DIRECTOR-C Work Phone: Start: 09-05-2024 Mean corpuscular hemoglobin concentration determination Mariela Olson COMPLEX DIRECTOR-C Work Phone: Start: 09-05-2024 Measurement of renal function Mariela vaca COMPLEX DIRECTOR-C Work Phone: Comment on above: GFR Calc Start: 09-05-2024 Nucleated red blood cell count procedure Mariela Olson COMPLEX DIRECTOR-C Work Phone: Start: 09-05-2024 Platelet mean volume determination Mariela Olson COMPLEX DIRECTOR-C Work Phone: Start: 07-18-2024 Carcinoembryonic antigen cea Mariela guzman COMPLEX DIRECTOR-C Work Phone: Comment on above: Nonsmokers <3.9 Smokers <5.6[employer] Electrochemiluminescence Immunoassay(ECLIA)Values obtained with different assay methods or kitscannot be used interchangeably. Results cannot beinterpreted as absolute evidence of the presence orabsence of malignant disease.Performed at: [address] [id number] Director: Jian Paredes PhD, Phone: [phone] Start: 07-18-2024 Measurement of renal function Mariela vaca COMPLEX DIRECTOR-C Work Phone: Comment on above: GFR Calc Start: 07-13-2024 End: 07-13-2024 Computerized ophthalmic imaging retina Darrel Pringle MD Start: 07-13-2024 End: 07-13-2024 Eylea Free Drug Darrel Pringle MD Start: 07-13-2024 Eylea Free Drug Darrel Pringle Start: 07-13-2024 End: 07-13-2024 Intravitreal njx pharmacologic agt spx Darrel Pringle MD Start: 07-04-2024 Calculation of international normalized ratio Mariela Olson COMPLEX DIRECTOR-C Work Phone: Start: 05-29-2024 Positron emission tomography with computed tomography Mariela Olson COMPLEX DIRECTOR-C Work Phone: Start: 05-25-2024 End: 05-25-2024 Computerized ophthalmic imaging retina Darrel Pringle MD Start: 05-25-2024 End: 05-25-2024 Eylea Free Drug Darrel Pringle MD Start: 05-25-2024 Eylea Free Drug Darrel Pringle Start: 05-25-2024 End: 05-25-2024 Intravitreal njx pharmacologic agt spx Darrel Pringle MD Start: 05-16-2024 Ferritin measurement Mariela Olson COMPLEX DIRECTOR-C Work Phone: Start: 05-16-2024 Immature reticulocyte fraction Mariela burrell COMPLEX DIRECTOR-C Work Phone: Start: 05-16-2024 Total iron binding capacity measurement Mariela Olson COMPLEX DIRECTOR-C Work Phone: Start: 03-30-2024 End: 03-30-2024 Computerized [...] Start: 01-19-2023 End: 01-19-2023 Eylea Sample Drug Darrle Pringle MD Start: 01-19-2023 End: 01-19-2023 Intravitreal [...] bypass grafting Hx of CABG Malinda Webster COMPLEX DIRECTOR-C Comment on above: FUNG in situ mammary [...] Activity Detail Author Start: 04-01-2025 Influenza vaccination [facility] Start: 02-19-2025 End: 02-19-2025 Patient encounter procedure 02/19/2025 1:30 PM EDT Office Visit [facility] [address] [place] [id number] Alvarez Pena MD [address] [place] [address] [facility] Start: 02-19-2025 Ultrasonography of abdomen [facility] Start: 02-19-2025 US Abdomen limited [facility] Start: 02-19-2025 End: 02-19-2025 Patient encounter procedure [facility] [address] Start: 02-12-2025 Patient discharge [facility] Start: 02-11-2025 Application of intermittent pneumatic compression device [facility] Start: 02-11-2025 End: 02-11-2025 Following clinical pathway protocol [facility] Start: 02-11-2025 Ambulation without limitation [facility] Start: 02-11-2025 Assessment of risk o f venous thromboembolism [facility] Start: 02-11-2025 Insertion of cathete r into peripheral vein [facility] Start: 02-11-2025 Oxygen therapy [facility] Start: 02-11-2025 Palliative care [facility] Start: 02-11-2025 Providing care accor ding to standard [facility] Start: 02-11-2025 Referral to service [facility] Start: 02-11-2025 [facility] Start: 02-11-2025 Hospital admission, emergency, from emergency room, medical nature [facility] Start: 02-11-2025 Centesis [facility] Start: 02-11-2025 Verification routine [facility] Start: 02-11-2025 Admission procedure [facility] Start: 02-11-2025 Patient referral to dietitian [facility] Start: 01-29-2025 End: 01-29-2026 CT Chest WO and CT angiogram Coronary arteries W contrast IV CTA Angiogram TAVR Imaging Routine Severe aortic stenosis Expected: 01/29/2025, Expires: 01/29/2026 [employer] Work Phone: Comment on above: Expected: 01/29/2025 , Expires: 01/29/2026 Start: 01-14-2025 Patient discharge [facility] Start: 01-09-2025 Patient referral [facility] Work Phone: Start: 12-05-2024 Catheterization of vein [facility] Start: 12-05-2024 Oxygen therapy [facility] Start: 12-05-2024 Patient discharge [facility] Start: 12-05-2024 Vital signs measurements [facility] Start: 12-05-2024 Following clinical p athway protocol [facility] Start: 12-05-2024 [facility] Start: 11-20-2024 Patient discharge [facility] Start: 11-18-2024 Application of intermittent pneumatic compression device [facility] Start: 11-18-2024 Following clinical p athway protocol [facility] Start: 11-18-2024 Ambulation without limitation [facility] Start: 11-18-2024 Assessment of risk o f venous thromboembolism [facility] Start: 11-18-2024 Insertion of cathete r into peripheral vein [facility] Start: 11-18-2024 Providing care accor karyna to [facility] Start: 11-18-2024 Referral to gastroenterology service [facility] Start: 11-18-2024 [facility] Start: 11-18-2024 Verification routine [facility] Start: 11-18-2024 Admission procedure [facility] Start: 11-18-2024 Patient referral to dietitian [facility] Start: 11-09-2024 Jared Raymond 8 Weeks/ / MAY/ POSS EYLEA/ PAP [facility] Work Phone: Start: 11-07-2024 Patient discharge [facility] Start: 11-07-2024 Care planning and pr oblem solving actions [facility] Start: 11-06-2024 Ova and Parasites Ova and Parasites [facility] Start: 11-06-2024 Enteric precautions [facility] Start: 11-06-2024 Application of intermittent pneumatic compression device [facility] Start: 11-06-2024 Following clinical p athway protocol [facility] Start: 11-06-2024 Assessment of risk o f venous thromboembolism [facility] Start: 11-06-2024 Documentation procedure [facility] Start: 11-06-2024 Insertion of cathete r into peripheral vein [facility] Start: 11-06-2024 Measuring intake and output [facility] Start: 11-06-2024 Oxygen therapy [facility] Start: 11-06-2024 Providing care accor ding to standard [facility] Start: 11-06-2024 Provision of activit y privileges [facility] Start: 11-06-2024 Referral to gastroenterology service [facility] Start: 11-06-2024 Referral to service [facility] Start: 11-06-2024 [facility] Start: 11-06-2024 Admission procedure [facility] Start: 11-06-2024 Verification routine [facility] Start: 11-06-2024 Hospital admission, emergency, from emergency room, medical nature [facility] Start: 11-06-2024 Patient referral to dietitian [facility] Start: 11-06-2024 [facility] Start: 10-24-2024 [facility] Start: 10-24-2024 [facility] Start: 09-07-2024 Smoking cessation education Tobacco cessation counseling [facility] Start: 08-01-2024 Advance Directive Discussion Advance Directive Discussion [facility] Start: 07-13-2024 Smoking cessation education Tobacco cessation counseling [facility] Start: 07-04-2024 Patient referral [facility] Work Phone: Start: 04-01-2024 Covid-19 Vaccine () Covid-19 Vaccine () [facility] Start: 03-30-2024 Smoking cessation education Tobacco cessation counseling [facility] Start: 02-10-2024 Smoking cessation education Tobacco cessation counseling [facility] Start: 12-21-2023 Smoking cessation education Tobacco cessation counseling [facility] Start: 12-11-2023 [facility] Start: 08-16-2023 Patient discharge [facility] Start: 08-15-2023 Following clinical p athway protocol [facility] Start: 08-15-2023 Notification of physician [facility] Start: 08-15-2023 [facility] Start: 08-15-2023 Admission procedure [facility] Start: 08-15-2023 Hospital admission, emergency, from emergency room, medical nature [facility] Start: 08-15-2023 Patient referral to dietitian [facility] Start: 06-29-2023 Smoking cessation education Tobacco cessation counseling [facility] Start: 05-11-2023 Smoking cessation education Tobacco cessation counseling [facility] Start: 05-05-2023 DIABETES SCREEN DIABETES SCREEN [facility] Start: 05-05-2023 Diabetes Screening Diabetes Screenin g [facility] Start: 03-30-2023 Smoking cessation education Tobacco cessation counseling [facility] Start: 01-19-2023 Smoking cessation education Tobacco cessation counseling [facility] Start: 12-08-2022 Smoking cessation education Tobacco cessation counseling [facility] Start: 09-29-2022 Smoking cessation education Tobacco cessation counseling [facility] Start: 09-01-2022 Smoking cessation education Tobacco cessation counseling [facility] Start: 04-01-2022 Influenza vaccination INFLUENZA (#1) [facility] Start: 08-01-2021 ADVANCE DIRECTIVE DISCUSSION ADVANCE DIRECTIVE DISCUSSION [facility] Start: 05-05-2021 Hepatitis B surface antibody level LDL CHOLESTEROL [facility] Start: 08-03-2020 ANNUAL PCP TEAM FIRE BOSS AVTAR DISEASE VISIT ANNUAL PCP TEAM CHRONIC DISEASE VISIT [facility] Start: 07-20-2020 Adult depression scr eening assessment DEPRESSION SCREENING [facility] Start: 2019 RSV Immunization for Adults (1 - 1-dose 75+ series) RSV Immunization for Adults (1 - 1-dose 75+ series) [facility] Start: 2019 RSV Vaccine (1 - 1-d ose 75+ series) RSV Vaccine (1 - 1-dose 75+ series) [facility] Start: 03-01-2009 Medicare Annual Well ness Visit Medicare Annual Wellness Visit [facility] Start: 1994 Pneumococcal Vaccine : 50+ (1 of 1 - PCV) Pneumococcal Vaccine: 50+ (1 of 1 - PCV) [facility] Start: 1994 SHINGRIX VACCINE (1 of 2) BLEDSOE GRIX VACCINE (1 of 2) [facility] Start: 1994 Zoster Vaccines (1 of 2) Zoste r Vaccines (1 of 2) [facility] Start: 1963 DTaP/Tdap/Td Vaccine s (1 - Tdap) DTaP/Tdap/Td Vaccines (1 - Tdap) [facility] Start: 1963 Pneumococcal Vaccine : 50+ Years (1 of 2 - PCV) Pneumococcal Vaccine: 50+ Years (1 of 2 - PCV) [facility] Start: 1963 Urine microalbumin profile [facility] Start: 1962 Annual PCP Team Type Inspector avtar Disease Visit Annual PCP Team Chronic Disease Visit [facility] Start: 1962 Anxiety Screening Anxiety Screening [facility] Start: 1962 BP CONTROLLED (<130/80) BP CON TROLLED (<130/80) [facility] Start: 1962 Depression Screening Depression Scre ening [facility] Start: 1962 HEPATITIS C SCREENING HEPATITIS C SC REENING [facility] Start: 1956 Depression Screening Depression Scre ening [facility] Start: 1950 PNEUMOCOCCAL: 65+ (1 - PCV) PNEUMOCOCCAL: 65+ (1 - PCV) [facility] Start: 1944 COVID-19 VACCINE (#1) COVID-19 VACCI NE (#1) [facility] Start: 1944 Lipid panel Lipid Panel [facility] Anion gap in Serum o r Plasma [facility] BUN/Creatinine ratio [facility] Calcium [Mass/volume ] in Serum or Plasma [facility] Carbon dioxide, tota l [Moles/volume] in Central venous blood [facility] Carcinoembryonic Ag [Mass/volume] in Serum or Plasma [facility] Carcinoembryonic Ag [Mass/volume] in Serum or Plasma [facility] Carcinoembryonic Ag [Mass/volume] in Serum or Plasma [facility] CBC W Auto Different ial panel - Blood [facility] Comprehensive metabo lic 2000 panel - Serum or Plasma [facility] Creatinine [Mass/vol ume] in Serum or Plasma [facility] CT Abdomen and Pelvi s W contrast IV [facility] Erythrocyte mean corpuscular volume determination [facility] Ferritin [Mass/volum e] in Serum or Plasma [facility] Glucose [Mass/volume ] in Serum or Plasma [facility] Hematocrit [Volume Fraction] of Blood [facility] Hemoglobin [Mass/vol ume] in Blood [facility] Iron and Iron bindin g capacity panel - Serum or Plasma [facility] Leukocytes [#/volume ] in Blood [facility] Magnesium measurement [facility] Mean corpuscular hemoglobin concentration determination [facility] Mean corpuscular hemoglobin determination [facility] Measurement of renal function [facility] Neutrophil count [facility] Neutrophil percent differential count [facility] Ova OR parasites identification [facility] Patient Education [facility] Work Phone: Patient referral [facility] Work Phone: Platelets [#/volume] in Blood [facility] Potassium measurement [facility] Red blood cell count [facility] Red cell distributio n width determination [facility] Serum chloride measurement [facility] Sodium measurement [facility] Urea nitrogen [Mass/volume] in Serum or Plasma [facility] Immunizations Immunization Date Immunization Notes Care Provider [facility] 08-03-2019 influenza virus vacc ine, unspecified formulation Papi Hernandez MD Work Phone: [facility] Payers Date Payer Category Payer Self-pay [id number] 2024 Medicare [id number] 2024 Self-pay [id number] 2022 Self-pay 0 [id number] 2009 Medicare MEDICARE [id number] 1944 Unknown [id number] 2.16840.1.059013.3.579.2.134 7 1944 Unknown [id number] 2.16.840.1.878902.3.579.2.134 7 1944 Unknown [id number] 2.16840.1.552585.3.579.2.134 7 1944 Unknown [id number] 2.16.840.1.464934.3.579.2.134 7 1944 Unknown [id number] 2.16.840.1.549549.3.579.2.134 7 1944 Unknown [id number] 2.16.840.1.820911.3.579.2.134 7 Unknown [id number] 2.16.840.1.014155.3.579.2.462 Unknown [id number] 2.16.840.1.994254.3.579.2.462 Unknown [id number] 2.16.840.1.063693.3.579.2.462 Unknown [id number] 2.16.840.1.690476.3.579.2.462 Unknown [id number] 2.16.840.1.097990.3.579.2.462 Unknown [id number] 2.16.840.1.760335.3.579.2.462 Unknown [id number] 2.840.1.093315.3.579.2.462 Unknown [id number] 2.840.1.370256.3.579.2.462 Unknown [id number] 2.840.1.048901.3.579.2.462 Unknown [id number] 2.840.1.985475.3.579.2.462 Unknown [id number] 2.840.1.780866.3.579.2.462 Unknown [id number] 2.840.1.096153.3.579.2.462 Unknown [id number] 2.840.1.916507.3.579.2.462 Unknown [id number] 2.840.1.516857.3.579.2.462 Unknown [id number] 2.840.1.266615.3.579.2.462 Unknown [id number] 2.16840.1.919616.3.579.2.462 Unknown [id number] 2.16.840.1.750407.3.579.2.462 Unknown [id number] 2.16840.1.183668.3.579.2.462 Unknown [id number] 2.16.840.1.598491.3.579.2.462 Unknown [id number] 2.840.1.424494.3.579.2.462 Unknown [id number] 2.16.840.1.586995.3.579.2.462 Unknown [id number] 2.16.840.1.998097.3.579.2.462 Unknown [id number] 2.16.840.1.104442.3.579.2.462 Unknown [id number] 2.16.840.1.218656.3.579.2.462 Unknown [id number] 2.16.840.1.229992.3.579.2.462 Unknown [id number] 2.16.840.1.520821.3.579.2.462 Unknown [id number] 2.16.840.1.506323.3.579.2.462 Unknown [id number] 2.840.1.934349.3.579.2.462 Unknown [id number] 2.840.1.592746.3.579.2.462 Unknown [id number] 2.840.1.596888.3.579.2.462 Unknown [id number] 2.840.1.896999.3.579.2.462 Unknown [id number] 2.840.1.431326.3.579.2.462 Unknown [id number] 2.16840.1.224386.3.579.2.462 Unknown [id number] 2.16840.1.010637.3.579.2.462 Unknown [id number] 2.16840.1.618727.3.579.2.462 Unknown [id number] 2.16.840.1.608583.3.579.2.462 Unknown [id number] 2.16840.1.731915.3.579.2.462 Unknown [id number] 2.16.840.1.064527.3.579.2.462 Unknown [id number] 2.16.840.1.688958.3.579.2.462 Unknown [id number] 2.16.840.1.227997.3.579.2.462 Unknown [id number] 2.16.840.1.683525.3.579.2.462 Unknown [id number] 2.16.840.1.036808.3.579.2.462 Unknown [id number] 2.840.1.235721.3.579.2.462 Unknown [id number] 2.840.1.920686.3.579.2.462 Unknown [id number] 2.840.1.198400.3.579.2.462 Unknown [id number] 2.840.1.253319.3.579.2.462 Unknown [id number] 2.840.1.050432.3.579.2.462 Unknown [id number] 2.840.1.786054.3.579.2.462 Unknown [id number] 2.840.1.700125.3.579.2.462 Unknown [id number] 2.840.1.018121.3.579.2.462 Unknown [id number] 2.840.1.613487.3.579.2.462 Unknown [id number] 2.840.1.033443.3.579.2.462 Unknown [id number] 2.840.1.769016.3.579.2.462 Unknown [id number] 2.840.1.331031.3.579.2.462 Unknown [id number] 2.840.1.598559.3.579.2.462 Unknown [id number] 2.840.1.975187.3.579.2.462 Unknown [id number] 2.840.1.983697.3.579.2.462 Unknown [id number] 2.16.840.1.583963.3.579.2.462 Unknown [id number] Unknown [id number] 2.16.840.1.632659.3.579.2.462 Unknown [id number] 2.16.840.1.345039.3.579.2.462 Unknown [id number] 2.16.840.1.608183.3.579.2.462 Unknown [id number] 2.16.840.1.443209.3.579.2.462 Unknown [id number] 2.16840.1.280654.3.579.2.462 Unknown [id number] 2.16.840.1.951122.3.579.2.462 Unknown [id number] 2.840.1.323272.3.579.2.462 Unknown [id number] 2.16840.1.646441.3.579.2.462 Unknown [id number] 2.840.1.981581.3.579.2.462 Unknown [id number] 2.16.840.1.096837.3.579.2.462 Unknown [id number] 2.16840.1.121117.3.579.2.462 Unknown [id number] 2.16.840.1.533188.3.579.2.462 Unknown [id number] 2.16.840.1.001592.3.579.2.462 Unknown [id number] 2.16.840.1.582189.3.579.2.462 Unknown [id number] 2.16.840.1.819246.3.579.2.462 Unknown [id number] 2.16.840.1.767171.3.579.2.462 Unknown [id number] 2.16840.1.910000.3.579.2.462 Unknown [id number] 2.16.840.1.402946.3.579.2.462 Unknown [id number] 2.16.840.1.778626.3.579.2.462 Social History Date Type Detail Facility Start: 08-01-1959 End: 05-05-2020 Tobacco smoking status NHIS Occasional tobacco smoker [facility] End: 08-01-1993 History of tobacco use Cigar Smoker [facility] Start: 05-07-2019 End: 01-29-2025 Cigarettes smoked current (pack per day) - Reported 1 [facility] Start: 05-07-2019 End: 05-05-2020 Tobacco use and exposure Smokeless tobacco non-user [facility] Start: 05-05-2020 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 quit cigarettes in 1993 [facility] Start: 1945 Sex Assigned At Not on file C [facility] Start: 03-06-2018 End: 09-07-2024 Tobacco smoking status NMIS Unknown if ever smoked [facility] Start: 01-25-2023 None [facility] Start: 10-31-2014 Spouse/ Signif icant Other [facility] Start: 01-25-2023 Cigarettes [facility] Start: 1945 Sex Assigned At Male [facility] Start: 09-07-2024 Alcohol intake Alcohol Use Details [facility] Start: 10-24-2024 End: 02-18-2025 Tobacco smoking status NHIS Ex-smoker (finding) [facility] Start: 10-24-2024 End: 01-22-2025 Sex Male (finding) [facility] Start: 08-01-1958 End: 08-01-1993 History of tobacco use Cigarette Smoker [facility] Start: 05-05-2020 End: 01-29-2025 Tobacco use panel [facility] PHQ2 Score 0 [facility] History of tobacco use Current smoker [facility] Start: 01-29-2025 Alcoholic beverage intake Lifetime non-drinker (finding) [facility] NEGATED: Highlighted rowStart: 09-07-2024 History of tobacco use Ex-cigarette smoker [facility] Medical Equipment Procedure Code Equipment Code Equipment Origin al Text Equipment Identifier Dates Sigmoidoscopy, flexible [id number] FDA Start: 11-06-2024 Colonoscopy ()[id number] FDA Start: 04-13-2024 Colonoscopy ()[id number] FDA Start: 11-19-2024 [place] Thk1.65mm P tfe 4x.5in Cardiovascular Sterile - [id number] Start: 07-19-2019 [facility] FDA Sta rt: 04-27-2024 [facility] FDA St art: 04-27-2024 ()[id number] FDA Start: 04-27-2024 ()[id number] FDA Start: 04-27-2024 [facility] FDA Sta rt: 04-27-2024 [facility] FDA St art: 04-27-2024 [facility] FDA Sta rt: 04-27-2024 [facility] FDA St art: 04-27-2024 [facility] FDA Sta rt: 04-27-2024 [facility] FDA St art: 04-27-2024 [facility] FDA Sta rt: 04-27-2024 [facility] FDA St art: 04-27-2024 [facility] FDA Sta rt: 04-27-2024 [facility] FDA St art: 04-27-2024 [facility] FDA Sta rt: 04-27-2024 [facility] FDA St art: 04-27-2024 FDA Start: 04-27-2024 FDA Start: 04-27-2024 [facility] FDA Sta rt: 04-27-[address] FDA [address] art: 04-27-2024 FDA Start: 04-27-2024 FDA Start: 04-27-2024 FDA Start: 04-27-2024 FDA Start: 04-27-2024 FDA Start: 04-27-2024 FDA Start: 04-27-2024 FDA Start: 04-27-2024 FDA Start: 04-27-2024 FDA Start: 04-27-2024 FDA Start: 04-27-2024 FDA Start: 04-27-2024 FDA Start: 04-27-2024 FDA Start: 04-27-2024 FDA Start: 04-27-2024 Goals Date Patient Goal Desired Activity /State Functional Status Date Assessment Result Facility 02-12-2025 Functional status Ambulates;Up ad raghavendra [facility] Work Phone: 11-20-2024 Functional status Ambulates [facility] Work Phone: 11-07-2024 Functional status Ambulates;Up ad raghavendra [facility] Work Phone: 08-16-2023 Functional status Ambulates;Bath room Privilege [facility] Work Phone: 08-15-2023 Functional status Tolerates Activity Well [facility] Work Phone: 07-23-2019 Are you deaf, or do you have serious difficulty hearing No 07/23/2019 4:22 PM Isaac Guzman APRN.CHOKER SETTER No [facility] Work Phone: 07-23-2019 Are you blind, or do you have serious difficulty seeing, even when wearing glasses No 07/23/2019 4:22 PM Isaac Guzman APRN.CHOKER SETTER No [facility] 07-23-2019 Do you have serious difficulty walking or climbing stairs No 07/23/2019 4:22 PM Isaac Guzman APRN.CHOKER SETTER No [facility] 07-23-2019 Do you have difficul ty dressing or bathing No 07/23/2019 4:22 PM Isaac Guzman APRN.CHOKER SETTER No [facility] 07-23-2019 Because of a physica l, mental, or emotional condition, do you have difficulty doing errands alone such as visiting a physician's office or shopping No 07/23/2019 4:22 PM Isaac Guzman APRN.CHOKER SETTER No [facility] Mental Status Date Assessment Result Facility 02-14-2025 Cognitive function Awake;Alert;A ppropriate;Fo benjamin Commands [facility] Work Phone: 02-12-2025 Cognitive function Voice/Name [facility] Work Phone: 02-11-2025 Cognitive function Awake;Alert;A ppropriate;Fo [facility] Work Phone: 12-05-2024 Cognitive function Voice/Name [facility] Work Phone: 12-05-2024 Cognitive function Awake;Alert;A ppropriate;[facility] Work Phone: 11-20-2024 Cognitive function Voice/Name [facility] Work Phone: 11-07-2024 Cognitive function Voice/Name [facility] Work Phone: 08-16-2023 Cognitive function Voice/Name [facility] Work Phone: 08-15-2023 Cognitive function Level Of Cons ciousness Awake;Alert;Appropriate;[facility] Work Phone: 07-23-2019 Because of a physica l, mental, or emotional condition, do you have serious difficulty concentrating, remembering, or making decisions No 07/23/2019 4:22 PM Isaac Guzman APRN.CHOKER SETTER No [facility] Clinical Notes 07-19-2019 to 02-14-2025 Telephone Encounter - Jeanne Wesley - 02/14/2025 2:42 PM EDTTelephone Encounter - Jeanne Wesley - 02/14/2025 2:42 PM EDTTelephone Encounter - Jeanne Wesley - 02/05/2025 3:23 PM EDT Note Date & Type Note Facility 02-14-2025 Telephone encounter Note Form atting of this note might be different from the original. Chart made and COMPLEX DIRECTOR packet mailed [facility] 02-14-2025 Miscellaneous Notes Formattin g of this note might be different from the original. Chart made and COMPLEX DIRECTOR packet mailed Patient sched for financial counseling and CTA/VC appts. I will mail her COMPLEX DIRECTOR packet and make chart. Spoke with patient to schedule CTA 02/19 at 11:30 am. In scheduling, patient has Medicare Part A only. Reviewed with central scheduling and patient would have to pay 50% upfront. Spoke with and confirmed patient is self pay with medicare part A. Instructed will have product communications manager arrange for financial counseling/assistance with [facility] prior to any appts/tests/procedures. Routed to Clau Wesley to arrange and call patient back Left message for patient to call office back to schedule CT scan on 02/19 Patient scheduled in valve clinic on 02/19 for aortic stenosis, cath and echo completed by Dr. Flores's office. BMP completed 01/08/25 in media. Pended order for CTA TAVR, CONTROL CLERK to sign. Will call patient to schedule same day as OV. documented in this encounter [facility] 02-12-2025 Discharge summary Note Date/Time February 12, 2025 8:19am [facility] Medical Records Department [address] [place] [address] Discharge Summary 02/12/25 0815 MR#: [id number] Acct: [id number] Name: JARED RAYMOND Rep #:[id number] : 1945 79 From: Darrel Galvan MD PCP: MARYAM Guerra Status:ADM IN Location: ICU CVICU20 1-1 Providers Date of Admission: 02/11/25 Date of Discharge: 02/12/25 Primary Care Physician: MARYAM Guerra Consultations 02/11/25 04:27 Consult: Hospice / Palliative Care Routine Consulting Provider: [facility] Reason for Consult: impending liver failure due to liver mets EMERGENT Consult: No MD Notified: Yes Date Notified: 02/11/25 Time Notified: 02:26 Method of Notification: Verbal Reason For Visit: 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S Diagnosis Discharge Diagnosis (1) Acute liver failure: Status: Acute Code(s): K72.00 - Acute and subacute hepatic failure without coma (2) Ascites: Status: Acute Code(s): R18.8 - Other ascites (3) Metastasis to liver: Status: Chronic Code(s): C78.7 - Secondary malignant neoplasm of liver and intrahepatic bile duct Plan Patient is an 79-year-old gentleman with history of colon cancer with liver metswho presented to the emergency department with abdominal distention fatigue and anorexia. Imaging studies demonstrated ascites admitted to a monitored bed for subsequent management 1. Marked malignant ascites ? Secondary to patient colon cancer with mets to the liver. Patient has been admitted to monitored bed and order was given for patient to undergo therapeuticparacentesis ? 02/12/2025Patient underwent paracentesis with dark yellow fluid noted within the right lower quadrant, large in volume with 3.7 L fluid removed on 02/11/2025 2. Colon cancer with with liver, intra-abdominal, probably thoracic lymph nodemetastases. Patient is status post laparoscopic right hemicolectomy April 2024. Patientwas noted to have suboptimal performance to go through systemic chemotherapy referral was subsequently made to the hospital service as outpatient by patient's oncologist ? 02/12/2025 plan is for patient to be evaluated by hospice prior to discharge 3. Hyponatremia ? Multifactorial including possible SIADH from patient malignancy as well as secondary to fluid overload. Do expect improvement with diuresis 4. Hypertension ? Blood pressure controlled, home medications continued with dose adjustment as needed 5. Anemia ? Secondary to chronic disorder monitoring H&H and transfuse if patient becomes symptomatic or hemoglobin falls below 7 6.DVT prophylaxis ? Plan is to initiate subcu heparin following patient paracentesis Time spent in the patient's overall evaluation,decision-making process, review of diagnostic data, adjustment of management, discussion with other providers, nursing nursing and ancillary staff involved in patient's care documentation, 35Minutes Medications at Discharge Home Medications amlodipine 5 [...] Q4H PRN pain 7 days #30 tabs 01/15/25 Physical Exam Narrative GENERAL: cooperative HEENT: Atraumatic; normocephalic EYES; icteric, Normal Conjunctiva NECK; supple, normal thyroid, RESPIRATORY: Diminished to auscultation CARDIOVASCULAR: Regular S1 S2, GI: Abdomen distended and firm : No Renal angle tenderness; EXTREMITIES: edema, no clubbing, MUSCULOSKELETAL: no muscle wasting NEURO: Awake; no lateralizing signs. SKIN: No Rash PSYCH; Flat affect Weight / BMI Weight Weight: 71.7 kg Body Mass Index (BMI) 24.9 ABG / Lab / Microbiology Data 02/12/25 05:30 02/12/25 05:30 Laboratory: Laboratory Results - last 24 hr 02/12/25 05:30: WBC 6.4, RBC 3.44 L, Hgb 10.0 L, Hct 28.6 L, MCV 83.1, MCH 29.1,MCHC 35.0, RDW Std Deviation 47.7 H, RDW Coeff of Deepika 15.9 H, Plt Count 232, MPV10.5, Immature Gran % (Auto) 0.300, Neut % (Auto) 72.4 H, Lymph % (Auto) 9.0 L, Redwood % (Auto) 16.6 H, Eos % (Auto) 1.4, Baso % (Auto) 0.3, Absolute Neuts (auto)4.7, Absolute Lymphs (auto) 0.58 L, Nucleated RBC % 0, Sodium 127 L, Potassium 3.8, Chloride 95 L, Carbon Dioxide 20.7 L, Anion Gap 12, BUN 12, Creatinine 0.83, Estim Creat Clear Calc 66.37, Est GFR (MDRD) Non-Af 89, BUN/Creatinine Ratio 14.5, Glucose 116 H, Calcium 8.8, Phosphorus 3.0, Magnesium 1.9, Total Bilirubin 8.06 H, AST 121 H, ALT 148 H, Alkaline Phosphatase 483 H, Total Protein 6.0, Albumin 3.5, Globulin 2.5, Albumin/Globulin Ratio 1.4 Radiography Diagnostic Testing: Radiology Impression Paracentesis Ultrasound 02/11/25 02:27 IMPRESSION: Dark yellow fluid noted within the right lower quadrant, large in volume with 3.7 L fluid removed. Reading Location: [facility] D/C Instructions Discharge Activity: Return to Normal Activity Call your doctor if you observe: Fever of 101 or Higher, Shortness of breath, Fainting spells and Chest pain DC O2, CPAP, BIPAP Needs Home O2 Discharge instructions: No Meaningful Use Info Meaningful Use Meaningful Use Diagnoses (Choose all that apply): None applicable Discharge Plan Admission Admit Date/Time: 02/11/25 02:24 Attending Provider: Darrel Galvan Primary Care Provider: Mariela Olson Consulting Providers: Ramirez Horne; Darrel Pearl; Elzbieta Sanford; Julissa Wetzel; Antonina Lizarraga; Nanci Islas NP; Latanya Snowden Discharge Orders/Prescriptions Prescriptions: No Action metoprolol tartrate 50 mg [...] (Reason: pain) 7 Days Qty: 30 0RF Referrals / Follow Up: Mariela Olson NP-C [Primary Care Provider] - Disposition Disposition (needs filled in before D/C Order can be placed): Home, Self Care Charges/Coding Visit Charges Inpatient E&M: 18709 Disch Hosp >30min 02/12/25 0819 <Electronically signed by Darrel Galvan MD> Cosigner Signature (if applicable): CC: COMPLEX DIRECTOR-C Mariela Olson; Dr. Darrel Galvan MD~ Signed [facility] Work Phone: 1(174) 308-166107-15-2025 Progress note Author Darrel Galvan [facility] Note Date/Time February 12, 2025 8:[address] [facility] Medical Records Department [address] [place] [address] Progress Note - Hospitalist 02/12/25654 MR#: [id number] Acct: [id number] Name: JARED RAYMOND Rep #:[id number] : 1945 79 From: Darrel Galvan MD PCP: MARYAM Guerra Status:ADM IN Location: ICU CVICU 1- Reason for Visit Chief Complaint: Worsening abdominal distention Subjective Subjective Patient underwent paracentesis with dark yellow fluid noted within the right lower quadrant, large in volume with 3.7 L fluid removed on 02/11/2025 Objective Data Objective Data Vital Signs: Vital Signs Temp Pulse Resp BP Pulse Ox O2 Del Method 98.2 F 76 16 170/68 H 95 Room Air 02/12/25 03:00 02/12/25 03:00 02/12/25 03:00 02/12/25 03:00 02/12/25 03:00 02/12/25 03:00 Oxygen Delivery Method Room Air Weight: 71.7 kg Body Mass Index (BMI) 24.9 Intake & Output: Intake and Output for Last 24 Hours 02/10/25 02/11/25 02/12/25 23:59 23:59 23:59 Intake Total 480 / 480 Output Total 3950 / 3950 Balance -3470 / -3470 Lab / Micro Data 02/12/25 05:30 02/12/25 05:30 Labs: Laboratory Results - last 24 hr 02/12/25 05:30: WBC 6.4, RBC 3.44 L, Hgb 10.0 L, Hct 28.6 L, MCV 83.1, MCH 29.1,MCHC 35.0, RDW Std Deviation 47.7 H, RDW Coeff of Deepika 15.9 H, Plt Count 232, MPV10.5, Immature Gran % (Auto) 0.300, Neut % (Auto) 72.4 H, Lymph % (Auto) 9.0 L, Redwood % (Auto) 16.6 H, Eos % (Auto) 1.4, Baso % (Auto) 0.3, Absolute Neuts (auto)4.7, Absolute Lymphs (auto) 0.58 L, Nucleated RBC % 0, Sodium 127 L, Potassium 3.8, Chloride 95 L, Carbon Dioxide 20.7 L, Anion Gap 12, BUN 12, Creatinine 0.83, Estim Creat Clear Calc 66.37, Est GFR (MDRD) Non-Af 89, BUN/Creatinine Ratio 14.5, Glucose 116 H, Calcium 8.8, Phosphorus 3.0, Magnesium 1.9, Total Bilirubin 8.06 H, AST 121 H, ALT 148 H, Alkaline Phosphatase 483 H, Total Protein 6.0, Albumin 3.5, Globulin 2.5, Albumin/Globulin Ratio 1.4 Radiography Diagnostic Testing: Radiology Impression Paracentesis Ultrasound 02/11/25 02:27 IMPRESSION: Dark yellow fluid noted within the right lower quadrant, large in volume with 3.7 L fluid removed. Reading Location: [facility] Physical Exam Narrative GENERAL: cooperative HEENT: Atraumatic; normocephalic EYES; icteric, Normal Conjunctiva NECK; supple, normal thyroid, RESPIRATORY: Diminished to auscultation CARDIOVASCULAR: Regular S1 S2, GI: Abdomen distended and firm : No Renal angle tenderness; EXTREMITIES: edema, no clubbing, MUSCULOSKELETAL: no muscle wasting NEURO: Awake; no lateralizing signs. SKIN: No Rash PSYCH; Flat affect Assessment & Plan Assessment/Plan (1) Acute liver failure: (2) Ascites: (3) Metastasis to liver: PLAN: Plan Patient is an 79-year-old gentleman with history of colon cancer with liver metswho presented to the emergency department with abdominal distention fatigue and anorexia. Imaging studies demonstrated ascites admitted to a monitored bed for subsequent management 1. Marked malignant ascites ? Secondary to patient colon cancer with mets to the liver. Patient has been admitted to monitored bed and order was given for patient to undergo therapeuticparacentesis ? 02/12/2025Patient underwent paracentesis with dark yellow fluid noted within the right lower quadrant, large in volume with 3.7 L fluid removed on 02/11/2025 2. Colon cancer with with liver, intra-abdominal, probably thoracic lymph nodemetastases. Patient is status post laparoscopic right hemicolectomy April 2024. Patientwas noted to have suboptimal performance to go through systemic chemotherapy referral was subsequently made to the hospital service as outpatient by patient's oncologist ? 02/12/2025 plan is for patient to be evaluated by hospice prior to discharge 3. Hyponatremia ? Multifactorial including possible SIADH from patient malignancy as well as secondary to fluid overload. Do expect improvement with diuresis 4. Hypertension ? Blood pressure controlled, home medications continued with dose adjustment as needed 5. Anemia ? Secondary to chronic disorder monitoring H&H and transfuse if patient becomes symptomatic or hemoglobin falls below 7 6.DVT prophylaxis ? Plan is to initiate subcu heparin following patient paracentesis Time spent in the patient's overall evaluation,decision-making process, review of diagnostic data, adjustment of management, discussion with other providers, nursing nursing and ancillary staff involved in patient's care documentation, 35Minutes Charges/Coding Visit Charges Inpatient E&M: 21565 Subs Hosp L2 02/12/2515 <Electronically signed by Darrel Galvan MD> Cosigner Signature (if applicable): CC: ~ Signed [facility] Work Phone: 1(759) 510-539307-15-2025 Radiology Diagnostic study [facility]07-15-2025 [facility]07-14-2025 Radiology Diagnostic study [facility]07-14-2025 Progress note Author Darrel Galvan [facility] Note Date/Time February 11, 2025 12:[address] [facility] Medical Records Department [address] [place] [address] Progress Note - Hospitalist 02/11/2525 MR#: [id number] Acct: [id number] Name: JARED RAYMOND Rep #:[id number] : 1945 79 From: Darrel Galvan MD PCP: Mariela Olson, COMPLEX DIRECTOR-C Status:ADM IN Location: ICU CVICU20 1-1 Reason for Visit Chief Complaint: Worsening abdominal distention Subjective Subjective Patient is an 79-year-old gentleman with history of colon cancer with liver metswho presented to the emergency department with abdominal distention fatigue and anorexia. Imaging studies demonstrated ascites admitted to a monitored bed for subsequent management Objective Data Objective Data Vital Signs: Vital Signs Temp Pulse Resp BP Pulse Ox O2 Del Method 98.1 F 78 18 188/78 H 100 Room Air 02/11/25 05:22 02/11/25 05:22 02/11/25 05:22 02/11/25 05:22 02/11/25 05:22 02/11/25 05:22 Oxygen Delivery Method Room Air Weight: 71.7 kg Body Mass Index (BMI) 24.9 Intake & Output: Intake and Output for Last 24 Hours 02/09/25 02/10/25 02/11/25 23:59 23:59 23:59 Output Total 250 / 250 Balance -250 / -250 Lab / Micro Data 02/11/25 04:36 02/11/25 04:36 Labs: Laboratory Results - last 24 hr 02/10/25 22:59: WBC 7.3, RBC 3.58 L, Hgb 10.3 L, Hct 30.3 L, MCV 84.6, MCH 28.8,MCHC 34.0, RDW Std Deviation 47.2 H, RDW Coeff of Deepika 15.2 H, Plt Count 266, MPV10.2, Immature Gran % (Auto) 0.300, Neut % (Auto) 78.1 H, Lymph % (Auto) 7.7 L, Redwood % (Auto) 12.4 H, Eos % (Auto) 1.1, Baso % (Auto) 0.4, Absolute Neuts (auto)5.7, Absolute Lymphs (auto) 0.56 L, Nucleated RBC % 0, PT 13.6, INR 1.0, APTT 28.2, Sodium 124 L, Potassium 3.9, Chloride 92 L, Carbon Dioxide 19.0 L, Anion Gap 13, BUN 10, Creatinine 0.87, Estim Creat Clear Calc 63.31, Est GFR (MDRD) Non-Af 87, BUN/Creatinine Ratio 11.2, Glucose 120 H, Calcium 8.9, Total Bilirubin 7.43 H, Direct Bilirubin 5.21 H, AST 132 H, ALT 160 H, Alkaline Phosphatase 516 H, Ammonia 25.6, Total Protein 6.5, Albumin 3.8, Globulin 2.7, Lipase 141 H, Urine Color Yellow, Urine Clarity Cloudy, Urine pH 6.0, Ur SpecificGravity 1.015, Urine Protein 30 H, Urine Glucose (UA) Normal, Urine Ketones Negative, Urine Occult Blood 10 H, Urine Nitrite Negative, Urine Bilirubin 3 H, Urine Urobilinogen 1 H, Ur Leukocyte Esterase 25 H, Urine RBC 0-5 SEEN, Urine WBC 0-5 SEEN, Ur Squamous Epith Cells 0-5 SEEN, Amorphous Sediment 1+, Urine Bacteria 0 SEEN, Urine Mucus 0 SEEN 02/11/25 04:36: WBC 7.2, RBC 3.50 L, Hgb 10.2 L, Hct 29.6 L, MCV 84.6, MCH 29.1,MCHC 34.5, RDW Std Deviation 47.8 H, RDW Coeff of Deepika 15.6 H, Plt Count 240, MPV10.6, Sodium 126 L, Potassium 3.8, Chloride 94 L, Carbon Dioxide 19.8 L, Anion Gap 12, BUN 9, Creatinine 0.84, Estim Creat Clear Calc 65.58, Est GFR (MDRD) Non-Af 88, BUN/Creatinine Ratio 10.5, Glucose 108 H, Calcium 8.9, Total Bilirubin 8.06 H, AST 126 H, ALT 147 H, Alkaline Phosphatase 501 H, Total Protein 6.3, Albumin 3.7, Globulin 2.6, Albumin/Globulin Ratio 1.5 Radiography Diagnostic Testing: Radiology Impression Chest X-Ray 02/10/25 22:46 IMPRESSION: No acute chest findings. Reading [facility]Pelvis CT 02/11/25 22:42 IMPRESSION: Worsening liver metastatic disease. Persistent abdominal adenopathy. Interval development of large ascites likely malignant. Interval dilatation of the biliary tree without obstructing lesion visualized. Consider MRCP. 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 Interval development of proximal left-sided hydronephrosis, the ureter may be compressed by retroperitoneal adenopathy. Status post right hemicolectomy, with ileocolic anastomosis. Reading Location: [place] [address] Physical Exam Narrative GENERAL: cooperative HEENT: Atraumatic; normocephalic EYES; icteric, Normal Conjunctiva NECK; supple, normal thyroid, RESPIRATORY: Diminished to auscultation CARDIOVASCULAR: Regular S1 S2, GI: Abdomen distended and firm : No Renal angle tenderness; EXTREMITIES: edema, no clubbing, MUSCULOSKELETAL: no muscle wasting NEURO: Awake; no lateralizing signs. SKIN: No Rash PSYCH; Flat affect Assessment & Plan Assessment/Plan (1) Acute liver failure: (2) Ascites: (3) Metastasis to liver: PLAN: Plan Patient is an 79-year-old gentleman with history of colon cancer with liver metswho presented to the emergency department with abdominal distention fatigue and anorexia. Imaging studies demonstrated ascites admitted to a monitored bed for subsequent management 1. Marked malignant ascites ? Secondary to patient colon cancer with mets to the liver. Patient has been admitted to monitored bed and order was given for patient to undergo therapeuticparacentesis 2. Colon cancer with with liver, intra-abdominal, probably thoracic lymph nodemetastases. Patient is status post laparoscopic right hemicolectomy April 2024. Patientwas noted to have suboptimal performance to go through systemic chemotherapy referral was subsequently made to the hospital service as outpatient by patient's oncologist 3. Hyponatremia ? Multifactorial including possible SIADH from patient malignancy as well as secondary to fluid overload. Do expect improvement with diuresis 4. Hypertension ? Blood pressure controlled, home medications continued with dose adjustment as needed 5. Anemia ? Secondary to chronic disorder monitoring H&H and transfuse if patient becomes symptomatic or hemoglobin falls below 7 6.DVT prophylaxis ? Plan is to initiate subcu heparin following patient paracentesis Time spent in the patient's overall evaluation,decision-making process, review of diagnostic data, adjustment of management, discussion with other providers, nursing nursing and ancillary staff involved in patient's care documentation, 35Minutes CODE STATUS; DNR CCA DO NOT INTUBATE. Patient family had apparently rescinded his initial CODE STATUS to full code. Had a further discussion explaining aboutwhat full code entailed including intubation during resuscitation attempt patient stated categorically that he did not want to be intubated under any circumstance. Patient CODE STATUS was changed back to DNR CCA/DNI time spent onthis discussion 16 minutes Charges/Coding Visit Charges Inpatient E&M: 41230 PROLNG IP/OBS E/M EA 15 MIN Multi Select Codes Visit Charges Visit Charges: 57441 PROLNG IP/OBS E/M EA 15 MIN Hospitalists' Procedures Procedures: 53323 Advncd Care Plan addl 30 Min 02/11/25 1236 <Electronically signed by Darrel Galvan MD> Cosigner Signature (if applicable): CC: ~ Signed [facility] Work Phone: 1(878) [phone] Discharge summary Author Harrison Linares [facility] Note Date/Time February 11, 2025 7:[address] [facility] Medical Records Department [address] [place] [address] Emergency Department Summary 02/11/25 MR#: [id number] Acct: [id number] Name: JARED RAYMOND Rep #:[id number] : 1945 79 From: Harrison Linares DO PCP: MARYAM Guerra Status:ADM IN Location: ICU CVICU20 1-1 HPI History of Present Illness Chief Complaint: General Illness Informant: patient and spouse/S.O. Narrative Narrative: Patient is a 79-year-old male with past medical aortic stenosis as well as coloncancer. He states that over the last few days he has had increased weight gain and abdominal distention. He states that because of his history of aortic stenosis he was concerned that the weight gain and distention was due to heart failure and therefore he presents for evaluation [facility] Medical History 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 Rectal bleeding GI bleed Diverticulosis Mediastinal lymphadenopathy Colon cancer metastasized to [...] PO Q4H PRN pain 7 days #30 01/15/25 Unknown Rx tabs Allergy/AdvReac Type Severity Reaction Status Date / Time No Known Allergies Allergy Verified 02/10/25 21:35 Family History Father Arthritis Alcohol abuse Mother Alcohol abuse Liver disease Surgical History History of hemicolectomy (04/25/24) H/O vasectomy S/P right hemicolectomy History of tonsillectomy History of appendectomy 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) Social History Smoking Status: Former smoker Tobacco: How many years used: 15 alcohol intake: never substance use type: does not use ROS ROS ED Constitutional Constitutional ED: Denies chills or fever(s) Eyes Eyes: Denies change in vision ENT ENT ED: Denies sore throat Cardiovascular Cardiovascular: Reports other Details: Positive leg swelling ; Denies chest pain Respiratory/Chest Respiratory/Chest: Denies cough or dyspnea Gastrointestinal Gastrointestinal: Reports abdominal pain, nausea and vomiting; Denies diarrhea Genitourinary Genitourinary ED: Denies dysuria Musculoskeletal Musculoskeletal: Denies back pain Integumentary Denies rash Neurologic Neurologic: Denies headache(s) Hematologic/Lymphatic Hematologic/Lymphatic: Denies easy bleeding or easy bruising EXAM Physical Exam Const Vital Signs: 02/10/25 21:34 02/11/25 00:52 02/11/25 01:06 Temperature 98.7 F Temperature Source Oral Pulse Rate 102 H 77 Respiratory Rate 16 16 Respiratory Pattern Normal Blood Pressure 178/93 H 164/79 H Blood Pressure Mean 121 107 Pulse Ox 99 94 Oxygen Delivery Method Room Air Room Air Positive well nourished and well developed General Appearance ED: well developed HEENT HEENT Narrative: Normocephalic atraumatic Eyes PERRL and EOMs intact bilaterally General Eye ED: Yes scleral icterus Neck supple and no JVD Neck Narrative: No nuchal rigidity or meningeal signs Resp normal respiratory effort and clear to auscultation bilaterally Resp Narrative: No nasal flaring retractions tachypnea or accessory muscle use Breath sounds overall clear to auscultation without signs of respiratory distress Cardio regular rate and regular rhythm Rate: other Other Details: Regular rate and rhythm with grade 5 out of 6 holosystolic murmur GI GI Narrative: Abdomen is distended with normal active bowel sounds. There is a ventral hernianoted that is reducible in nature. There is fluid wave present consistent with ascites. Negative Escobar sign Auscultation: normoactive bowel sounds Palpation: soft Back/Spine no CVA tenderness Extremity Extremity Narrative: +2-3 pitting edema to the bilateral lower extremities that is equal and symmetric Negative Homans' sign bilaterally Neuro CN's II-XII intact bilaterally and no sensory deficits noted Neuro Narrative: Patient is awake and alert but slightly confused Cranial nerves II through XII are grossly intact however without focal neurologic deficit Sensorium / Orientation: alert Psych Psych Narrative: Patient has a flat affect Skin no rashes or lesions noted General Skin Exam: jaundice MDM MDM MDM Narrative Medical decision making narrative: Patient arrived to the ER hypertensive but otherwise with stable vitals. He presented with weight gain and distention over the last few days. On exam he isjaundiced with scleral icterus and there is high concern for cirrhosis or liver disease. Patient also could have potential ileus or small bowel obstruction causing his distention and fluid wave. He does have a ventral hernia but it is reducible nature going against incarceration. Secondary to his basic labs were obtained with a CT scan of the abdomen and pelvis. The patient has significant elevation to his total bilirubin as well as liver enzymes which are consistent with his physical exam. His CT shows diffuse ascites as well as metastatic liver disease. The patient denies any history of liver disease but chart reviewreveals that this is a known diagnosis. At this time because of the worsening distention and ascites as well as the elevation to his liver enzymes I do feel he would benefit from a therapeutic paracentesis. Also patient may benefit fromevaluation by palliative care or hospice. Therefore the case was discussed withthe hospitalist who agrees to accept the patient for continued treatment and monitoring. History & Record Review Discussion w/independent historian: Patient and Significant other Lab Data Attestation: I reviewed the patient's lab results. Labs: Laboratory Results - last 24 hr 02/10/25 22:59 WBC 7.3 RBC 3.58 L Hgb 10.3 L Hct 30.3 L MCV 84.6 MCH 28.8 MCHC 34.0 RDW Std Deviation 47.2 H RDW Coeff of Deepika 15.2 H Plt Count 266 MPV 10.2 Immature Gran % (Auto) 0.300 Neut % (Auto) 78.1 H Lymph % (Auto) 7.7 L Redwood % (Auto) 12.4 H Eos % (Auto) 1.1 Baso % (Auto) 0.4 Absolute Neuts (auto) 5.7 Absolute Lymphs (auto) 0.56 L Nucleated RBC % 0 PT 13.6 INR 1.0 APTT 28.2 Sodium 124 L Potassium 3.9 Chloride 92 L Carbon Dioxide 19.0 L Anion Gap 13 BUN 10 Creatinine 0.87 Estim Creat Clear Calc 63.31 Est GFR (MDRD) Non-Af 87 BUN/Creatinine Ratio 11.2 Glucose 120 H Calcium 8.9 Total Bilirubin 7.43 H Direct Bilirubin 5.21 H AST 132 H ALT 160 H Alkaline Phosphatase 516 H Ammonia 25.6 Total Protein 6.5 Albumin 3.8 Globulin 2.7 Lipase 141 H Urine Color Yellow Urine Clarity Cloudy Urine pH 6.0 Ur Specific [place] 1.015 Urine Protein 30 H Urine Glucose (UA) Normal Urine Ketones Negative Urine Occult Blood 10 H Urine Nitrite Negative Urine Bilirubin 3 H Urine Urobilinogen 1 H Ur Leukocyte Esterase 25 H Urine RBC 0-5 SEEN Urine WBC 0-5 SEEN Ur Squamous Epith Cells 0-5 SEEN Amorphous Sediment 1+ Urine Bacteria 0 SEEN Urine Mucus 0 SEEN Radiography Diagnostic Testing: Clinical Impression(s) from Imaging Studies Chest X-Ray 02/10/25 22:46 IMPRESSION: No acute chest findings. Reading Location: [facility] Chest x-ray as interpreted by the emergency medicine physician reveals infiltrate pneumothorax or pleural effusion Management Discussion w/another healthcare provider: Hospitalist Discharge Plan Dx/Rx/DC Orders Clinical Impression: Acute liver failure, Ascites, Benign essential hypertension, Aortic stenosis, Metastatic colon cancer to liver Disposition Disposition: Acute Care Hospital [facility] Discharge Date/Time: 02/11/25 04:22 What to do if you have Problems For any increased pain, shortness of breath, bleeding, nausea or vomiting, chestpain, or any unexpected problems, contact your Primary Care Provider. Call [facility] ([phone]) or report to the closest Emergency Room. Call 911 if necessary. 02/11/25 0746 <Electronically signed by Harrison Linares DO> Cosigner Signature (if applicable): CC: MARYAM Olson ~ Signed [facility] Work Phone: 1(978) 481-392107-14-2025 [facility] Note Date/Time February 11, 2025 6:56 am [facility] Medical Records Department [address] [place] [address] Progress Note - Hospitalist 02/11/25 0650 MR#: [id number] Acct: [id number] Name: JARED RAYMOND Rep #:[id number] : 1945 79 From: Ramirez almazan DO PCP: MARYAM Guerra Status:ADM IN Location: ICU CVICU 1-1 Hospitalist Note Notified by nursing that was unhappy with patient's DNR CCA, DNI CODE STATUS. Went to the bedside to discuss this further with patient and . Notified them that per Dr. Araujo' note, decision had been made to change patient to DNR code status. However patient and noted this was not the case. I spent considerable time at the bedside discussing the CODE STATUS options with family. They discussed this with patient's daughter, and and daughter were concerned that if patient had cardiac arrest they would like an attempt to be made for him to be resuscitated. Patient was unsure on his position on this. I discussed that full CODE STATUS means full CPR with intubation if necessary. I noted that given his impending liver failure, a cardiac arrest would likely be from a noncardiac cause and cardiac resuscitationwould not ultimately change the underlying cause for the arrest. However, at this time patient would like to be FULL CODE until further discussions with hospice care today. I did note to them that it is unlikely patient would be excepted for hospice care as a full code. Patient and were appreciative ofthis discussion. 02/11/25 0656 <Electronically signed by Ramirez Horne DO> Cosigner Signature (if applicable): CC: ~ Signed [facility] Work Phone: 1(817) 632-368907-14-2025 History and physical note Author Ramirez Horne [facility] Note Date/Time February 11, 2025 4:[address] [facility] Medical Records Department [address] [place] [address] H&P Exam - Hospitalist 02/11/25 0224 MR#: [id number] Acct: [id number] Name: JARED RAYMOND Rep #:[id number] : 1945 79 From: Ramirez almazan DO PCP: MARYAM Guerra Status:ADM IN Location: ICU CVICU20 1-1 HPI - General General Date of Admission: 02/11/25 Date of Service: 02/11/25 Chief Complaint: Worsening abdominal distention HPI Narrative JARED RAYMOND, is a 79 M who presented to [facility] ED on 02/11/2025 with worsening abdominal distention. Medical history is significant for colon cancer with liver metastases. Patient follows with Dr. Araujo, lastsaw him in the office on 01/09. Dr. Araujo noted that his CT imaging in October showed multiple liver lesions and progressive abdominal lymphadenopathy consistent with progression of his metastatic disease, and his CEA has been continually rising. Liver biopsy in November confirmed metastatic adenocarcinoma. Was noted that patient is elderly, frail and has suboptimal performance status and thus is not a candidate for systemic chemotherapy. Patient and were agreeable to pursuing palliative care with eventual transition to home hospice. Patient presents today with worsening abdominal distention with poor appetite over the past several days. Labs on admit notable for T. bili 7.4, direct bili 5.2, AST 132, ALT 160, alk phos 516. LFTs were previously normal in November. Sodium low at 124 but INR was normal at 1.0. CT abdomen pelvis showed worseningliver metastatic disease with interval development of large ascites likely malignant and interval dilation of the biliary tree without obstructing lesion visualized. Given concern for impending liver failure due to metastatic cancer,hospitalist was contacted for admission. I saw the patient at bedside in the ED, was present. Patient was jaundicedand mildly fatigued appearing but otherwise sitting back comfortably in bed and in no acute distress. He was alert and oriented x 3 and answering questions appropriately. They noted that palliative care was set up for them last week and he has not transitioned to hospice care. I informed them that it appears that patient has impending liver failure secondary to his metastatic cancer which is not curable. As noted above, patient is not a candidate for chemotherapy given his poor functional status. I noted that my recommendation at this time would be for hospice care. Patient family would like to pursue home hospice care if possible. They also inquired about paracentesis for symptom management and I noted that this is reasonable and radiology will be consulted for therapeutic paracentesis. Will be admitted for further management. [facility] Medical History 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 Rectal bleeding GI bleed Diverticulosis Mediastinal lymphadenopathy Colon cancer metastasized to [...] PO Q4H PRN pain 7 days #30 01/15/25 Unknown Rx tabs Allergy/AdvReac Type Severity Reaction Status Date / Time No Known Allergies Allergy Verified 02/10/25 21:35 Family History Father Arthritis Alcohol abuse Mother Alcohol abuse Liver disease Surgical History History of hemicolectomy (04/25/24) H/O vasectomy S/P right hemicolectomy History of tonsillectomy History of appendectomy 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) Social History Smoking Status: Former smoker Tobacco: How many years used: 15 alcohol intake: never substance use type: does not use ROS Constitutional Constitutional: Reports fatigue; Denies chills or fever(s) Eyes Eyes: Denies change in vision Cardiovascular Cardiovascular: Denies chest pain Respiratory/Chest Respiratory/Chest: Denies shortness of breath at rest Gastrointestinal Gastrointestinal: Reports abdominal pain and nausea; Denies vomiting Musculoskeletal Musculoskeletal: Denies arthralgias or myalgias Vital Signs Vital Signs Vital Signs: 02/10/25 21:34 02/11/25 00:52 02/11/25 01:06 Temperature 98.7 F Temperature Source Oral Pulse Rate 102 H 77 Respiratory Rate 16 16 Respiratory Pattern Normal Blood Pressure 178/93 H 164/79 H Blood Pressure Mean 121 107 Pulse Ox 99 94 Oxygen Delivery Method Room Air Room Air Weight Weight: 72.121 kg Body Mass Index (BMI) 24.9 Physical Exam Const alert, oriented x3, no apparent distress and average body habitus Constitutional Narrative: Elderly male, jaundiced, mildly fatigued appearing but otherwise laying back fairly comfortably in bed, answering questions appropriately, in no acute distress. General Appearance: cooperative and comfortable HEENT normocephalic, head/scalp atraumatic, hearing grossly normal bilaterally, nasal mucous membranes and turbinates normal and moist oral mucous membranes Eyes PERRL and EOMs intact bilaterally Eyes Narrative: Scleral icterus noted. Neck full ROM Chest inspection of chest normal Resp normal respiratory effort, normal air movement, no use of accessory muscles and clear to auscultation bilaterally Cardio regular rate, regular rhythm, no murmurs and peripheral pulses 2+ throughout GI GI Narrative: Abdominal distention with fluid wave noted. Nontender to palpation. Back/Spine normal ROM Extremity normal to inspection, full ROM and no pedal edema Psych mental status grossly normal Results Lab / Micro Data 02/10/25 22:59 02/10/25 22:59 Labs: Laboratory Results - last 24 hr 02/10/25 22:59: WBC 7.3, RBC 3.58 L, Hgb 10.3 L, Hct 30.3 L, MCV 84.6, MCH 28.8,MCHC 34.0, RDW Std Deviation 47.2 H, RDW Coeff of Deepika 15.2 H, Plt Count 266, MPV10.2, Immature Gran % (Auto) 0.300, Neut % (Auto) 78.1 H, Lymph % (Auto) 7.7 L, Redwood % (Auto) 12.4 H, Eos % (Auto) 1.1, Baso % (Auto) 0.4, Absolute Neuts (auto)5.7, Absolute Lymphs (auto) 0.56 L, Nucleated RBC % 0, PT 13.6, INR 1.0, APTT 28.2, Sodium 124 L, Potassium 3.9, Chloride 92 L, Carbon Dioxide 19.0 L, Anion Gap 13, BUN 10, Creatinine 0.87, Estim Creat Clear Calc 63.31, Est GFR (MDRD) Non-Af 87, BUN/Creatinine Ratio 11.2, Glucose 120 H, Calcium 8.9, Total Bilirubin 7.43 H, Direct Bilirubin 5.21 H, AST 132 H, ALT 160 H, Alkaline Phosphatase 516 H, Ammonia 25.6, Total Protein 6.5, Albumin 3.8, Globulin 2.7, Lipase 141 H, Urine Color Yellow, Urine Clarity Cloudy, Urine pH 6.0, Ur SpecificGravity 1.015, Urine Protein 30 H, Urine Glucose (UA) Normal, Urine Ketones Negative, Urine Occult Blood 10 H, Urine Nitrite Negative, Urine Bilirubin 3 H, Urine Urobilinogen 1 H, Ur Leukocyte Esterase 25 H, Urine RBC 0-5 SEEN, Urine WBC 0-5 SEEN, Ur Squamous Epith Cells 0-5 SEEN, Amorphous Sediment 1+, Urine Bacteria 0 SEEN, Urine Mucus 0 SEEN Imaging Radiology Impression Chest X-Ray 02/10/25 22:46 IMPRESSION: No acute chest findings. Reading Location: [facility] Abdomen/Pelvis CT 02/11/25 22:42 IMPRESSION: Worsening liver metastatic disease. Persistent abdominal adenopathy. Interval development of large ascites likely malignant. Interval dilatation of the biliary tree without obstructing lesion visualized. Consider MRCP. 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 Interval development of proximal left-sided hydronephrosis, the ureter may be compressed by retroperitoneal adenopathy. Status post right hemicolectomy, with ileocolic anastomosis. Reading Location: [facility] Assessment & Plan Assessment/Plan (1) Acute liver failure: (2) Ascites: (3) Metastasis to liver: PLAN: Plan Patient is an 79-year-old male who presented to [facility] ED on02/11/2025 with worsening abdominal distention. 1. Impending liver failure with ascites presumed secondary to colon cancer withliver metastases ? Admit under inpatient status to [facility]. Case management consulted. Hospice consulted. Patient with known history of colon cancer with liver mets, follows with outpatient oncology. See HPI as above for further details. Presented withworsening abdominal distention presumed secondary to malignant ascites. Labs onadmit with T. bili 7.4, direct bili 5.2, AST 132, ALT 160, alk phos 516. LFTs were previously normal in November. INR is normal at 1.0. Sodium low as below. Ammonia level normal. CT abdomen pelvis showed malignant ascites and worsening metastatic liver disease. Patient is active with home palliative care, and he and would like to pursue home hospice care if possible. Appreciate hospicerecommendations. Patient is also interested in having paracentesis done for symptom management; radiology consulted for therapeutic paracentesis. BP elevated in the ED; will also start Lasix 20 mg daily and spironolactone 50 mg daily at this time. 2. Hyponatremia ? Sodium 124, chloride 92 on admit. Suspect secondary to hypervolemic hyponatremia in setting of liver dysfunction as above. Treating with Lasix and spironolactone as above. 3. Hypertension ? Started on Lasix and spironolactone as above but BP is elevated to the 180s systolic. Will continue home amlodipine as well. Hold home Lopressor and clonidine as needed. 4. Iron deficiency anemia ? Hemoglobin 10.3 on admit, at baseline. Continue home iron supplement. DVT prophylaxis: SCDs CODE STATUS: DNR CCA, DNI Expected disposition: TBD Total clinical time spent by myself addressing the patient's medical issues, reviewing all the data, and collaborating with patient's care team: 75 minutes. Charges/Coding Visit Charges Inpatient E&M: 42204 Init Hosp L3 02/11/25 0432 <Electronically signed by Ramirez Horne DO> Cosigner Signature (if applicable): CC: MARYAM Olson; Dr. Ramirez Horne DO~ Signed [facility] Work Phone: [phone]) [phone] Radiology Diagnostic study [facility]07-08-2025 NotePatient sched for financial counseling and CTA/VC appts. I will mail her COMPLEX DIRECTOR packet and make chart.[facility]07-08-2025 Telephone encounter Note * Telephone Encounter - Jeanne Wesley - 02/05/2025 3:23 PM EDT Patient sched for financial counseling and CTA/VC appts. I will mail her COMPLEX DIRECTOR packet and make chart. [id number] Telephone encounter Note* Telephone Encounter - Obdulia Solo RN - 02/04/2025 9:54 AM EDT Spoke with patient to schedule CTA 02/19 at 11:30 am. In scheduling, patient has Medicare Part A only. Reviewed with central scheduling and patient would have to pay 50% upfront. Spoke with and confirmed patient is self pay with medicare part A. Instructed will have product communications manager arrange for financial counseling/assistance with [facility] prior to any appts/tests/procedures. Routed to Clau Wesley to arrange and call patient back [facility] [id number] Telephone encounter Note* Telephone Encounter - Obdulia Solo RN - 01/31/2025 12:44 PM EDT Left message for patient to call office back to schedule CT scan on 02/19 [facility] [id number] Telephone encounter Note* Telephone Encounter - Obdulia Solo RN - 01/29/2025 11:28 AM EDT Patient scheduled in valve clinic on 02/19 for aortic stenosis, cath and echo completed by Dr. Flores's office. BMP completed 01/08/25 in media. Pended order for CTA TAVR, CONTROL CLERK to sign. Will call patient to schedule same day as OV. [facility] [id number] History and physical note Author Adrian Flores [facility] Note Date/Time January 13, 2025 7:57 am [facility] Medical Records Department [address] [place] [address] History & Physical Exam 01/06/25 0808 MR#: [id number] Acct: [id number] Name: JARED RAYMOND Rep #:[id number] : 1945 79 From: Adrian Flores MD PCP: MARYAM Guerra Status:PRE [facility] Location: [facility] History and Physical Date of [...] Vital Signs: See EMR Intake Visit Reasons: [facility] History Tutor Required: No Is patient in pain?: No Allergies No Known Allergies Allergy (Verified 10/17/24 14:22) Medications: See EMR Ejection fraction %: 70 Have you fallen in the past year?: No [facility] Medical History (Updated 10/17/24 @ 14:43 by Malinda Webster COMPLEX DIRECTOR, COMPLEX DIRECTOR-C) Encounter for education Pre-op testing Wears dentures [...] valve disease etiology: nonrheumatic Qualified Code(s): I35.0 - Nonrheumatic aortic (valve) stenosis Plan: Echocardiogram on 11/28/2024 [...] 0757 <Electronically signed by Malinda FRANCISCO> CC: MARYAM Webster; ABDIASC Mariela Olson; Dr. Adrian Flores MD~ Signed [facility] Work Phone: 1(389) [phone] [facility] General05-17-2025 Radiology Diagnostic study [facility]05-07-2025 Radiology Diagnostic study note [facility] Imaging Services [address] [place] [address] Biopsy/Inj or Needle Placement MR#: [id number] Acct: [id number] Name: JARED RAYMOND Rep #: [id number] : 1945 M 79 From: Esdras Watts MD PCP: MARYAM Guerra Status: REG CLI Study:Biopsy/Inj or Needle Placement Date of Exam: 12/05/24 Exam# [id number] Ordering Dr: Brenda Araujo MD PROCEDURE: BIOPSY/INJ [...] core biopsy. Pathology results pending. Reading Location: [facility] CC: COMPLEX DIRECTORJoseC Mariela Olson; Dr. Brenda Araujo MD ~ Mechanical Engineering Intern: Signed [facility]05-04-2025 Radiology Diagnostic study [facility]04-22-2025 Discharge summary Author Neville [facility] Note Date/Time November 20, 2024 1:[address] [facility] Medical Records Department [address] [place] [address] Instructions for Home/Discharge Instructions 11/20/24 1241 MR#: [id number] Acct: [id number] Name: JARED RAYMOND Rep #:[id number] : 1945 79 From: Neville Jang DO [...] Selam Craig NP, NP-C [Med Staff - [facility] Practice Prof] - See Referral Note (Theoffice will call you to confirm an appointment time) Disposition Disposition (needs filled in before D/C Order can be placed): Home, Self Care 11/20/24 1322<Electronically signed by Neville Jang DO>Neville Jang DO CC: MARYAM Olson; Dr. Kelvin Schrader MD ~ Signed [facility] Work Phone: 1(229) 951-124304-22-2025 Consult note [facility] Medical Records Department [address] [place] [address] Counseling Note - Pharmacy 11/20/24 1342 MR#: [id number] Acct: [id number] Name: JARED RAYMOND Rep #:[id number] : 1945 79 From: Kush Daniel PCP: MARYAM Guerra Status:ADM IN Y Location: [place] [address] Pharmacy [place] Med Reconciliation Pharmacy Service has performed discharge [...] 11/20/24 11/20/24 1343 r> Date _ Kush Richeyigner Signature (if applicable): Date CC: ~ Signed [facility]04-22-2025 Discharge summary [facility] Medical Records Department [address] [place] [address] Instructions for Home/Discharge Instructions 11/20/24 1241 MR#: [id number] Acct: [id number] Name: JARED RAYMOND Rep #:[id number] : 1945 79 From: Neville Jang DO [...] Selam Craig NP, NP-C [Med Staff - [facility] Practice Prof] - See Referral Note (Theoffice will call you to confirm an appointment time) Disposition Disposition (needs filled in before D/C Order can be placed): Home, Self Care 11/20/24 1322Mark [facility] centerky DO CC: ABDIASC Mariela Olson; Dr. Kelvin Schrader MD ~ Signed [facility]04-22-20[facility] Consult note Author Keo Burgos [facility] Note Date/Time November 20, 2024 9:5 5am [facility] Medical Records Department [address] [place] [address] Anesthesia Postop Eval II 11/20/24 0952 MR#: [id number] Acct: [id number] Name: JARED RAYMOND Rep #:[id number] : 1945 79 From: Keo Burgos MD PCP: MARYAM Guerra Status:ADM IN Y Race: C Location: [place] [address] Anesthesia Postop Eval I Sum Postop Eval [...] MD Cosigner Signature: Date CC: ~ Signed [facility] Work Phone: 1(288) 692-185704-22-2025 Consult note [facility] Medical Records Department [address] [place] [address] Anesthesia Postop Eval II 11/20/2452 MR#: [id number] Acct: [id number] Name: JARED RAYMOND Rep #:[id number] : 1945 79 From: Keo Burgos MD PCP: MARYAM Guerra Status:ADM IN Y Race: C Location: [place] [id number] -1 Anesthesia Postop Eval I Sum Postop [...] MD Cosigner Signature: Date CC: ~ Signed [facility]04-22-2025 Procedure note [facility] Medical Records Department [address] [place] [address] Colonoscopy Report MR#: [id number] Acct: [id number] Name: JARED RAYMOND Rep #:[id number] : 1945 79 From: Ari Silvestre DO [...] three hemostatic clips were successfully placed. Clip dye machine tender: DecideQuick. There was no bleeding at the end [...] the colonic anastomosis. Clips were placed. Clip dye machine tender: DecideQuick. - The examined portion of the ileum was normal. - No specimens collected. Recommendation: - [facility]. - Resume previous diet. - Continue present medications. - Repeat colonoscopy in 1 year to assess disease activity. Procedure Code(s): --- Professional --- 74671, Colonoscopy, flexible; with control of bleeding, any method 70264, 59, Colonoscopy, flexible; with directed submucosal injection(s), any substance CPT copyright 2021 [employer]. All rights reserved. The codes documented in this report are preliminary and upon dairy farmer review may be revised to meet current compliance requirements. Ari Silvestre DO 11/20/2024 7:56:55 AM This report has been signed electronically. Number of Addenda: 0 Note Initiated On: 11/19/2024 1:03 PM 11/20/24 0757 Date _ Ari Silvestre DO Cosigner Signature: Date (if indicated) CC: MARYAM Olson; Ari Silvestre DO ~ Date Dictated: 11/19/24 1303 Date Transcribed: Mechanical Engineering Intern: RF Signed [facility]04-22-2025 Procedure note [facility] Medical Records Department [address] [place] [address] Operative Report - CC Letter MR#: [id number] Acct: [id number] Name: JARED RAYMOND Rep #:[id number] : 1945 79 From: Ari Silvestre DO [...] the colonic anastomosis. Clips were placed. Clip dye machine tender: DecideQuick. - The examined portion of the ileum [...] ~ Date Dictated: 11/19/24 1303 Date Transcribed: Mechanical Engineering Intern: RANDY Signed [facility]04-21-2025 Progress note Author Neville Jang [facility] Note Date/Time November 19, 2024 6:2 0pm [facility] Medical Records Department [address] [place], [place] [address] [address] Progress Note - Hospitalist 11/19/24 1816 MR#: [id number] Acct: [id number] Name: JARED RAYMOND Rep #:[id number] : 1945 79 From: Neville Jang DO PCP: Mariela Olson, MARYAM Status:ADM IN Location: [place] [address] Reason for Visit Reason for Visit: Diagnoses [...] 73.3 H, Lymph % (Auto) 14.2 L, Redwood % (Auto) 10.0, Eos % (Auto) 1.9, [...] 35 minutes Charges/Coding Visit Charges Inpatient E&M: 91313 Subs Hosp L2 11/19/24 1820 <Electronically signed by Neville Jang DO> Cosigner Signature (if applicable): CC: ~ Signed [facility] Work Phone: 1(570) 127-255104-21-2025 Progress note [facility] Medical Records Department [address] [place] [address] Progress Note - Hospitalist 11/19/24 181 MR#: [id number] Acct: [id number] Name: JARED RAYMOND Rep #:[id number] : 1945 79 From: Neville Jang DO PCP: Mariela Olson NP-C Status:ADM IN Location: [place] [address] Reason for Visit Reason for Visit: Diagnoses [...] 73.3 H, Lymph % (Auto) 14.2 L, Redwood % (Auto) 10.0, Eos % (Auto) 1.9, [...] 35 minutes Charges/Coding Visit Charges Inpatient E&M: 70459 [facility] Hosp L2 11/19/24 1820 Cosigner Signature (if applicable): CC: ~ Signed [facility]04-21-2025 Consult note Author Guerrero Miller [facility] Note Date/Time November 19, 2024 2:0 5pm [facility] Medical Records Department [address] [place] [address] Anesthesia Postop Eval I 11/19/24 1402 MR#: [id number] Acct: [id number] Name: JARED RAYMOND Rep #:[id number] : 1945 79 From: Guerrero Miller PCP: MARYAM Guerra Status:ADM IN Y Race: C Location: [facility] MS324 -1 Anesthesia: Postop Eval I Current Vital [...] document: Postop Eval 1 completed: Yes 11/19/24 3874 <Electronically signed by Guerrero Miller > Date _ Guerrero Miller Cosigner Signature: Date CC: ~ Signed [facility] Work Phone: [phone]) 572-393704-21-2025 Consult note Author Ari Silvestre [facility] Note Date/Time November 19, 2024 12: 58pm [facility] Medical Records Department [address] [place] [address] Consultation - GI 11/19/24 1256 MR#: [id number] Acct: [id number] Name: JARED RAYMOND Rep #:[id number] : 1945 79 From: Ari Silvestre DO PCP: MARYAM Guerra Status:ADM [facility] H[facility] Consult Data Date of Consult: 11/19/24 [...] presents for evaluation. He originally presented to [facility] ED on 04/11/2024 with c/o [...] the possible use of ivermectin for treatment. [facility] Medical History Diverticulosis Mediastinal lymphadenopathy Colon [...] 73.3 H, Lymph % (Auto) 14.2 L, Redwood % (Auto) 10.0, Eos % (Auto) 1.9, [...] undergo colonoscopy. Charges/Coding Visit Charges Inpatient E&M: 45801 Init Hosp L3 11/19/24 1258 <Electronically signed by Ariarvind Silvestre DO> Cosigner Signature (if applicable): CC: MARYAM Olson; Dr. Kelvin Schrader MD~ Signed [facility] Work Phone: 1(368) 399-180804-21-2025 Consult note [facility] Medical Records Department [address] [place] [address] Anesthesia Postop Eval I 11/19/24 1402 MR#: [id number] Acct: [id number] Name: JARED RAYMOND Rep #:[id number] : 1945 79 From: Guerrero Miller PCP: MARYAM Guerra Status:ADM IN Y Race: C Location: [place] [address] Anesthesia: Postop Eval I Current Vital Signs [...] Guerrero Vela Signature: Date CC: ~ Signed [facility]04-21-2025 Consult note Author Steven Ann [facility] Note Date/Time November 19, 2024 12: 03pm [facility] Medical Records Department [address] [place] [address] Pre-Anesthesia Evaluation 11/19/24 1202 MR#: [id number] Acct: [id number] Name: JARED RAYMOND Rep #:[id number] : 1945 79 From: Steven Ann MD PCP: MARYAM Guerra Status:ADM IN Y Race: C Location: [address] ASA Classification* ASA Classification ASA Classification: 3 [...] Procedure(s): colonoscopy Anesthesia History Anesthesia History - care aid: Anesthesia History - care aid Hx Hospitalization Yes: 06/09/24 BIOPSY OF LIVER [...] take am of surgery PONV PONV - care aid: PONV - care aid Female HX of Motion Sickness HX of N/V After Surgery Non-Smoker Duration of Surgery greater than 60 minutes Number of Risk Factors PONV Score Height & Weight Height & Weight: Anesthesia: Height & Weight Height 5 ft 7.5 in 11/19/24 08:57 Weight: 68.946 kg 11/19/24 08:57 Body Mass Index (BMI) 23.4 11/19/24 08:57 Respiratory Assessment Respiratory Assessment - care aid: Respiratory Tract Infection Hx - care aid Hx Respiratory Tract Infection No 11/18/24 21:04 STOP Sleep Apnea STOP Sleep Apnea - care aid: STOP Sleep Apnea - care aid Hx Hypertension Yes 11/18/24 15:46 Hx Sleep [...] Tobacco Use History Tobacco Use History - care aid: Tobacco Use History - care aid Tobacco Use Cigarettes 01/25/23 14:01 Smoking Status Former smoker 11/18/24 17:39 Hx Tobacco Use Yes: Cigar 11/18/24 15:46 Years Smoking Packs Smoked per Day Smoking Cessation Date was Yes - quit smoking within 15 11/18/24 15:46 within the last 15 years years Hx Smoking Cessation Date 04/01/23 11/18/24 15:46 Hx Smoking Cessation Yes 11/18/24 15:46 Counseling Hematologic Medial History Hematologic Hx - care aid: Hematologic Medical Hx - clinic mgr Hx of Blood Transfusion Yes 11/18/24 15:46 [...] confused, unrespo /Reproduction History /Reproductive History - care aid: /Reproductive Hx- care aid Hx Now No 11/18/24 21:04 Gestational Age [...] Steven Ann MD > Date _ Steven Vela Signature: Date CC: ~ Signed [facility] Work Phone: 1(129) 540-374504-21-2025 Consult note [facility] Medical Records Department [address] [place] [address] Consultation - GI 11/19/24 1256 MR#: [id number] Acct: [id number] Name: JARED RAYMOND Rep #:[id number] : 1945 79 From: Ari Friend DO PCP: MARYAM Guerra Status:ADM IN Location: [facility] KC484-5 HPI Consult Data Date of Consult: 11/19/24 [...] presents for evaluation. He originally presented to [facility] ED on 04/11/2024 with c/o [...] the possible use of ivermectin for treatment. [facility] Medical History Diverticulosis Mediastinal lymphadenopathy Colon [...] 73.3 H, Lymph % (Auto) 14.2 L, Redwood % (Auto) 10.0, Eos % (Auto) 1.9, [...] undergo colonoscopy. Charges/Coding Visit Charges Inpatient E&M: 56872 Init Hosp L3 11/19/24 1258 Cosigner Signature (if applicable): CC: MARYAM Olson; Dr. Kelvin Schrader MD~ Signed [facility]04-21-2025 Consult note [facility] Medical Records Department [address] [place] [address] Pre-Anesthesia Evaluation 11/19/24 1202 MR#: [id number] Acct: [id number] Name: JARED RAYMOND Rep #:[id number] : 1945 79 From: Steven Ann MD PCP: MARYAM Guerra Status:ADM IN Y Race: C Location: [place] [address] ASA Classification* ASA Classification ASA Classification: 3 [...] Procedure(s): colonoscopy Anesthesia History Anesthesia History - care aid: Anesthesia History - care aid Hx Hospitalization Yes: 06/09/24 BIOPSY OF LIVER [...] take am of surgery PONV PONV - care aid: PONV - care aid Female HX of Motion Sickness HX of N/V After Surgery Non-Smoker Duration of Surgery greater than 60 minutes Number of Risk Factors PONV Score Height & Weight Height & Weight: Anesthesia: Height & Weight Height 5 ft 7.5 in 11/19/24 08:57 Weight: 68.946 kg 11/19/24 08:57 Body Mass Index (BMI) 23.4 11/19/24 08:57 Respiratory Assessment Respiratory Assessment - care aid: Respiratory Tract Infection Hx - care aid Hx Respiratory Tract Infection No 11/18/24 21:04 STOP Sleep Apnea STOP Sleep Apnea - care aid: STOP Sleep Apnea - care aid Hx Hypertension Yes 11/18/24 15:46 Hx Sleep [...] Tobacco Use History Tobacco Use History - care aid: Tobacco Use History - care aid Tobacco Use Cigarettes 01/25/23 14:01 Smoking Status Former smoker 11/18/24 17:39 Hx Tobacco Use Yes: Cigar 11/18/24 15:46 Years Smoking Packs Smoked per Day Smoking Cessation Date was Yes - quit smoking within 15 11/18/24 15:46 within the last 15 years years Hx Smoking Cessation Date 04/01/23 11/18/24 15:46 Hx Smoking Cessation Yes 11/18/24 15:46 Counseling Hematologic Medial History Hematologic Hx - care aid: Hematologic Medical Hx - clinic mgr Hx of Blood Transfusion Yes 11/18/24 15:46 [...] confused, unrespo /Reproduction History /Reproductive History - care aid: /Reproductive Hx- care aid Hx Now No 11/18/24 21:04 Gestational Age [...] documented. 11/19/24 1203 > Date _ Steven Vela Signature: Date CC: ~ Signed [facility]04-20-2025 History and physical note Author Kelvin Schrader [facility] Note Date/Time November 18, 2024 4:[address] [facility] Medical Records Department [address] [place] [address] H&P Exam - Hospitalist 11/18/24 1335 MR#: [id number] Acct: [id number] Name: JARED RAYMOND Rep #:[id number] : 1945 79 From: Kelvin rojas MD PCP: ABDIAS GuerraC Status:ADM IN Location: [facility] PH599-2 HPI - General General Date of Admission: [...] with the possibility of proceeding with chemotherapy. [facility] Medical History Diverticulosis Mediastinal lymphadenopathy Colon [...] 71.9 H, Lymph % (Auto) 14.4 L, Redwood % (Auto) 11.2 H, Eos % (Auto) [...] to the large mesenteric mass. Reading Location: [facility] Assessment & Plan Assessment/Plan (1) GI [...] Multi Select Codes Visit Charges Visit Charges: 61773 Init Hosp L2 Hospitalists' Procedures Procedures: 33096 Advncd Care Plan 30 Min 11/18/24 1608 <Electronically signed by Kelvin Schrader MD> Cosigner Signature (if applicable): CC: MARYAM Olson; Dr. Kelvin Schrader MD~ Signed [facility] Work Phone: 1(796) 877-782204-20-2025 Discharge summary Author Radha Damon [facility] Note Date/Time November 18, 2024 2:5 3pm [facility] Medical Records Department [address] [place] [address] Emergency Department Summary 11/18/24 MR#: [id number] Acct: [id number] Name: JARED RAYMOND Rep #:[id number] : 1945 79 From: Radha [place] PCP: MARYAM Guerra Status:ADM IN Location: [place] [address]3374-1 HPI <ONDINA Govea - Last Filed: 11/18/24 [...] He denies any fevers, chills, or vomiting. [facility] <ONDINA Govea - Last Filed: 11/18/24 14:05> [facility] Medical History Diverticulosis Mediastinal lymphadenopathy Colon [...] <ONDINA Govea - Last Filed: 11/18/24 14:05> [facility] Narrative Medical decision making narrative: Patient presenting [...] 71.9 H Lymph % (Auto) 14.4 L Redwood % (Auto) 11.2 H Eos % (Auto) [...] to the large mesenteric mass. Reading Location: [id number] <Dr. Lazaro Sharp MD - Last Filed: 11/18/24 14:53> [facility] MDM Narrative Medical decision making [...] 71.9 H Lymph % (Auto) 14.4 L Redwood % (Auto) 11.2 H Eos % (Auto) [...] to the large mesenteric mass. Reading Location: [id number] CT of the abdomen pelvis was reviewed [...] made aware of patient and admit to [facility]) Procedures <Dr. Lazaro Sharp MD [...] of hypertension Disposition Disposition: Acute Care Hospital [facility] What to do if you have Problems For any increased pain, shortness of breath, bleeding, nausea or vomiting, chest pain, or any unexpected problems, contact your Primary Care Provider. Call [facility] ([phone]) or report to the closest Emergency Room. Call 911 if necessary. 11/18/24 1405 <Electronically signed by Radha [place]> Cosigner Signature (if applicable): 11/18/24 1453 <Electronically signed by Lazaro Sharp MD> CC: MARYAM Olson ~ Signed [facility] Work Phone: 1(300) 179-908804-20-2025 History and physical note [facility] Medical Records Department [address] [place] [address] H&P Exam - Hospitalist 11/18/24 1335 MR#: [id number] Acct: [id number] Name: SEGUNDOJARED L Rep #:[id number] : 1945 79 From: Kelvin rojas MD PCP: Mariela Olson COMPLEX DIRECTOR-C Status:ADM IN Location: MS3 AR579-6 HPI - General General Date of Admission: [...] with the possibility of proceeding with chemotherapy. [facility] Medical History Diverticulosis Mediastinal lymphadenopathy Colon [...] 71.9 H, Lymph % (Auto) 14.4 L, Redwood % (Auto) 11.2 H, Eos % (Auto) [...] to the large mesenteric mass. Reading Location: [facility] Assessment & Plan Assessment/Plan (1) GI [...] Multi Select Codes Visit Charges Visit Charges: 32068 Init Hosp L2 Hospitalists' Procedures Procedures: 21925 Advncd Care Plan 30 Min 11/18/24 1606 Cosigner Signature (if applicable): CC: MARYAM Olson; Dr. Kelvin Schrader MD~ Signed [facility]04-20-2025 Discharge summary [facility] Medical Records Department [address] [place] [address] Emergency Department Summary 11/18/24 MR#: [id number] Acct: [id number] Name: JARED RAYMOND Rep #:[id number] : 1945 79 From: Radha NJ PCP: MARYAM Guerra Status:ADM IN Location: [facility] HE186-6 HPI HPI - GI History of Present [...] denies a ny fevers, chills, or vomiting. [facility] Medical History Diverticulosis Mediastinal lymphadenopathy Colon cancer [...] 71.9 H Lymph % (Auto) 14.4 L Redwood % (Auto) 11.2 H Eos % (Auto) [...] to the large mesenteric mass. Reading Location: [id number] MDM MDM Narrative Medical decision making narrative: [...] 71.9 H Lymph % (Auto) 14.4 L Redwood % (Auto) 11.2 H Eos % (Auto) [...] to the large mesenteric mass. Reading Location: [id number] CT of the abdomen pelvis was reviewed [...] made aware of patient and admit to [facility]) Procedures Other Procedures Procedure(s): Anoscopy [...] of hypertension Disposition Disposition: Acute Care Hospital [facility] What to do if you have Problems For any increased pain, shortness of breath, bleeding, nausea or vomiting, chest pain, or any unexpected problems, contact your Primary Care Provider. Call [facility] ([phone]) or report to the closest Emergency Room. Call 911 if necessary. 11/18/24 1407 Cosigner Signature (if applicable): 11/18/24 5169 CC: MARYAM Olson ~ Signed [facility]04-20-2025 Discharge summary Author Radha Damon [facility] Note Date/Time November 18, 2024 2:5 3pm [facility] Medical Records Department [address] [place] [address] Emergency Department Summary 11/18/24 MR#: [id number] Acct: [id number] Name: JARED RAYMOND Rep #:[id number] : 1945 79 From: Radha JN PCP: MARYAM Guerra Status:ADM IN Location: [facility] EP204-0 HPI <ONDINA Govea - Last Filed: 11/18/24 [...] He denies any fevers, chills, or vomiting. [facility] <ONDINA Govea - Last Filed: 11/18/24 14:05> [facility] Medical History Diverticulosis Mediastinal lymphadenopathy Colon [...] <ONDINA Govea - Last Filed: 11/18/24 14:05> [facility] MDM Narrative Medical decision making [...] 71.9 H Lymph % (Auto) 14.4 L Redwood % (Auto) 11.2 H Eos % (Auto) [...] to the large mesenteric mass. Reading Location: [id number] <Dr. Lazaro Sharp MD - Last Filed: 11/18/24 14:53> [facility] Narrative Medical decision making narrative: ulceration at [...] 71.9 H Lymph % (Auto) 14.4 L Redwood % (Auto) 11.2 H Eos % (Auto) [...] of abdominopelvic metastatic disease, including hepatic, diffuse mgagie, retroperitoneal/omental and mesenteric metastatic disease. 3. 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 Reading Location: [id number] CT of the abdomen pelvis was reviewed [...] made aware of patient and admit to [facility]) Procedures <Dr. Lazaro Sharp MD [...] of hypertension Disposition Disposition: Acute Care Hospital [facility] What to do if you have Problems For any increased pain, shortness of breath, bleeding, nausea or vomiting, chest pain, or any unexpected problems, contact your Primary Care Provider. Call [facility] ([phone]) or report to the closest Emergency Room. Call 911 if necessary. 11/18/24 1405 <Electronically signed by Radha [place]> Cosigner Signature (if applicable): 11/18/24 1453 <Electronically signed by Lazaro Sharp MD> CC: MARYAM Olson ~ Signed [facility] Work Phone: 1(907) 856-595604-20-2025 Radiology Diagnostic study note [facility] Imaging Services [address] [place] [address] Abdomen/Pelvis W IV Cont ONLY MR#: [id number] Acct: [id number] Name: JARED RAYMOND Rep #: [id number] : 1945 M 79 From: Vanessa Rosado MD PCP: MARYAM Guerra Status: REG ER Study:Abdomen/Pelvis W IV Cont ONLY Date of E xam: 11/18/24 Exam# [id number] Ordering Dr: Radha Sharp MD PROCEDURE: ABDOMEN/PELVIS [...] to the large mesenteric mass. Reading Location: [id number] CC: COMPLEX DIRECTOR-Jenifer Olson; Dr. Lazaro Sharp MD ~ Mechanical Engineering Intern: Signed [facility]04-09-2025 Discharge summary [facility] Medical Records Department [address] [place] [address] Discharge Summary 11/07/24 1655 MR#: [id number] Acct: [id number] Name: JARED RAYMOND Rep #:[id number] : 1945 79 From: Stevie Harrington DO PCP: MARYAM Guerra Status:ADM IN Location: [place] [id number]- 1 Providers Date of Admission: 11/06/24 Primary Care Physician: MARYAM Guerra Consultations 11/06/24 03:28 Consult: Gastroenterology Routine Consulting Provider: [facility] Reason for Consult: LGIB with [facility]; [...] 70.4 H, Lymph % (Auto) 14.8 L, Redwood % (Auto) 12.5 H, Eos % (Auto) [...] simethicone 80 mg Tablet,Chewable 80 mg PO [facility] Qty: 0 0RF Continued metoprolol tartrate 50 [...] Self Care Charges/Coding Visit Charges Inpatient E&M: 01693 Disch Hosp >30min 11/07/24 1707 Cosigner Signature (if applicable): CC: MARYAM Olson; Dr. Stevie Harrington DO~ Signed [facility]04-09-2025 [facility] [place] Progress note Author Steviepamella Harrington [facility] Note Date/Time November 07, 2024 12:2 7pm [facility] Medical Records Department [address] [place] [address] Progress Note - Hospitalist 11/07/24726 MR#: [id number] Acct: [id number] Name: JARED RAYMOND Rep #:[id number] : 1945 79 From: Stevie Harrington DO PCP: MARYAM Guerra Status:ADM IN Location: [place] [address]- 1 Reason for Visit Reason for Visit: Diagnoses [...] 11/07/24 23:59 23:59 23:59 Intake Total 2119 / 2119 0 / 0 Balance 2119 0 [...] 78.1 H, Lymph % (Auto) 9.1 L, Redwood % (Auto) 11.9 H, Eos % (Auto) [...] 70.4 H, Lymph % (Auto) 14.8 L, Redwood % (Auto) 12.5 H, Eos % (Auto) [...] prophylaxis: SCDs. Charges/Coding Visit Charges Inpatient E&M: 24420 Subs Hosp L2 11/07/24 1227 <Electronically signed by Stevie Harrington DO> Cosigner Signature (if applicable): CC: ~ Signed [facility] Work Phone: 1(290) 836-542104-09-2025 Progress [address] [facility] Medical Records Department [address] [place] [address] Progress Note - Hospitalist 11/07/24 0727 MR#: [id number] Acct: [id number] Name: JARED RAYMOND Rep #:[id number] : 1945 79 From: Stevie Harrington DO PCP: MARYAM Guerra Status:ADM IN Location: [place] [id number]- 1 Reason for Visit Reason for Visit: Diagnoses [...] 11/07/24 23:59 23:59 23:59 Intake Total 2119 / 2119 0 / 0 Balance 2119 / 2119 0 / 0 Lab / Micro [...] 78.1 H, Lymph % (Auto) 9.1 L, Redwood % (Auto) 11.9 H, Eos % (Auto) [...] 70.4 H, Lymph % (Auto) 14.8 L, Redwood % (Auto) 12.5 H, Eos % (Auto) [...] prophylaxis: SCDs. Charges/Coding Visit Charges Inpatient E&M: 06956 Subs Hosp L2 11/07/24 1227 Cosigner Signature (if applicable): CC: ~ Signed [facility]04-08-2025 Consult note Author Keo Burgos [facility] Note Date/Time November 06, 2024 8:40 pm [facility] Medical Records Department [address] [place] [address] Anesthesia Postop Eval II 11/06/242038 MR#: [id number] Acct: [id number] Name: JARED RAYMOND Rep #:[id number] : 1945 79 From: Keo Burgos MD PCP: MARYAM Guerra Status:ADM IN Y Race: C Location: [place] [address] 3-1 Anesthesia Postop Eval I Sum Postop [...] MD Cosigner Signature: Date CC: ~ Signed [facility] Work Phone: 1(288) 676-329304-08-2025 Consult note [facility] Note Date/Time November 06, 2024 8:00 pm [facility] Medical Records Department [address] [place] [address] Anesthesia Postop Eval I 11/06/241948 MR#: [id number] Acct: [id number] Name: SEGUNDOJARED L Rep #:[id number] : 1945 79 From: Keo Burgos MD PCP: ABDIAS GuerraC Status:ADM IN Y Race: C Location: [place] [address] 3-1 Anesthesia: Postop Eval I Current Vital Signs [...] MD Cosigner Signature: Date CC: ~ Signed [facility] Work Phone: 1([phone]) 517-636904-08-2025 Consult note Author Keo [facility] Note Date/Time November 06, 2024 7:07 pm [facility] Medical Records Department [address] [place] [address] Pre-Anesthesia Evaluation 11/06/24 1859 MR#: [id number] Acct: [id number] Name: JARED RAYMOND Rep #:[id number] : 1945 79 From: Keo Burgos MD PCP: MARYAM Guerra Status:ADM IN Y Race: C Location: [place] [address] 3-1 ASA Classification* ASA Classification ASA Classification: [...] 11/06/24 RBC 3.83 M/mm3 (4.6-6.2) L 11/06/24 16:11/06/24 Hgb 11.9 g/dL (13.0-16.5) L 11/06/24 16:30 5 Hct 33.9 % (40-54) L 11/06/24 16:30 11/06/24 Plt Count 290 K/mm3 (150-450) 11/06/24 16:30 11/06/24 CHEMISTRY Potassium 4.1 mmol/L (3.3-5.1) 11/06/24 04:11/06/24 Sodium 130 mmol/L (133-145) L 11/06/24 04:23 11/06/24 Magnesium 2.3 mg/dL (1.5-2.2) H 11/05/24 22:42 11/05/24 Phosphorus 2.6 mg/dL (2.7-4.5) L 11/06/24 04:23 11/06/24 BUN 14 mg/dL (4-19) 11/06/24 04:11/06/24 Creatinine 0.97 mg/dL (0.70-1.20) 11/06/24 04:23 11/06/24 Glucose 99 mg/dL (70-99) 11/06/24 04:23 11/06/24 POC Glucose 113 mg/dL (74-106) H 04/27/24 06:06 04/27/24 TSH 1.900 uIU/mL (0.300-4.200) 11/06/24 04:23 04/0 03/25 COAG PT 12.2 SECONDS (11.7-14.9) 11/05/24 22:42 Pre-Assessment Diagnosis/Proposed Procedure Planned Operative Procedure(s): Flexible sigmoidoscopy Anesthesia History Anesthesia History - care aid: Anesthesia History - care aid Hx Hospitalization Yes: 06/09/24 BIOPSY OF LIVER [...] sips of water?: Yes PONV PONV - care aid: PONV - care aid Female HX of Motion Sickness HX of N/V After Surgery Non-Smoker Duration of Surgery greater than 60 minutes Number of Risk Factors PONV Score Height & Weight Height & Weight: Anesthesia: Height & Weight Height 5 ft 7 in 11/06/24 09:29 Weight: 72 kg 11/06/24 09:29 Body Mass Index (BMI) 24.8 11/06/24 05:23 Respiratory Assessment Respiratory Assessment - care aid: Respiratory Tract Infection Hx - care aid Hx Respiratory Tract Infection Yes: Patient is recovering 06/22/24 12:11 from a cold/sinus congestion STOP Sleep Apnea STOP Sleep Apnea - care aid: STOP Sleep Apnea - care aid Hx Hypertension Yes 11/06/24 13:19 Hx Sleep [...] Tobacco Use History Tobacco Use History - care aid: Tobacco Use History - care aid Tobacco Use Cigarettes 01/25/23 14:01 Smoking Status Former smoker 11/06/24 13:51 Hx Tobacco Use Yes: Cigar 11/06/24 03:38 Years Smoking Packs Smoked per Day Smoking Cessation Date was Yes - quit smoking within 15 11/06/24 03:38 within the last 15 years years Hx Smoking Cessation Date 04/01/23 11/06/24 03:38 Hx Smoking Cessation Yes 11/06/24 03:38 Counseling Hematologic Medial History Hematologic Hx - care aid: Hematologic Medical Hx - clinic mgr Hx of Blood Transfusion Yes 11/06/24 03:38 [...] confused, unrespo /Reproduction History /Reproductive History - care aid: /Reproductive Hx- care aid Hx Now Gestational Age (in weeks): EDC: [...] MD Cosigner Signature: Date CC: ~ Signed [facility] Work Phone: 1([phone]) 345-851304-08-2025 Consult note Author Ari Silvestre [facility] Note Date/Time November 06, 2024 6:59 pm [facility] Medical Records Department [address] [place] [address] Consultation - GI 11/06/24 1854 MR#: [id number] Acct: [id number] Name: JARED RAYMOND Rep #:[id number] : 1945 79 From: Ari Silvestre DO PCP: ABDIAS GuerraC Status:ADM IN Location: [facility] [id number]- [id number] HPI Consult Data Date of Consult: 11/06/24 [...] presents for evaluation. He originally presented to [facility] ED on 04/11/2024 with c/o [...] positive, MSI stable. Pathologic staging pT4 pN2b. [facility] Medical History Encounter for education Pre-op [...] % (Auto) Cancelled, Lymph % (Auto) Cancelled, Redwood % (Auto) Cancelled, Eos % (Auto) Cancelled, [...] Drop Cells Cancelled, Ovalocytes Cancelled, Stomatocytes Cancelled, Scott-Sandy Level Bodies Cancelled, Tani Cells Cancelled, Bite Cells [...] 76.8 H, Lymph % (Auto) 12.9 L, Redwood % (Auto) 8.9, Eos % (Auto) 0.6, [...] 74.5 H, Lymph % (Auto) 13.7 L, Redwood % (Auto) 9.8, Eos % (Auto) 1.4, [...] 78.1 H, Lymph % (Auto) 9.1 L, Redwood % (Auto) 11.9 H, Eos % (Auto) [...] flexible sigmoidoscopy. Charges/Coding Visit Charges Inpatient E&M: 22890 Init Hosp L3 11/06/24 1859 <Electronically signed by Ariarvind Silvestre DO> Cosigner Signature (if applicable): CC: MARYAM Olson~ Signed [facility] Work Phone: 1(906) 445-622404-08-2025 Consult note [facility] Medical Records Department [address] [place] [address] Anesthesia Postop Eval II 11/06/242038 MR#: [id number] Acct: [id number] Name: JARED RAYMOND Rep #:[id number] : 1945 79 From: Keo Burgos MD PCP: MARYAM Guerra Status:ADM IN Y Race: C Location: [place] [address] 3-1 Anesthesia Postop Eval I Sum Postop [...] MD Cosigner Signature: Date CC: ~ Signed [facility]04-08-2025 Consult note [facility] Medical Records Department [address] [place] [address] Anesthesia Postop Eval I 11/06/241948 MR#: [id number] Acct: [id number] Name: SEGUNDOJARED L Rep #:[id number] : 1945 79 From: Keo Burgos MD PCP: MARYAM Guerra Status:ADM IN Y Race: C Location: [place] [address] Anesthesia: Postop Eval I Current Vital Signs [...] Yes 11/06/241999 quincy DAVIS> Date _ Keo Burgos MD Cosigner Signature: Date CC: ~ Signed [facility]04-08-2025 Procedure note [facility] Medical Records Department [address] [place] [address] Colonoscopy Report MR#: [id number] Acct: [id number] Name: JARED RAYMOND Rep #:[id number] : 1945 79 From: Ari Silvestre DO [...] digital rectal examinations were normal. Hematin (altered blood/qllgek-dbwrip-bgxv material) was found in the entire colon. There was evidence of a prior end-to-side ileo-colonic anastomosis in the ascending colon. This was patent and was characterized by ulceration and an intact staple line. The anastomosis was traversed. To stop active bleeding, one hemostatic clip was successfully placed. Clip dye machine tender: DecideQuick. There was no bleeding at the end [...] was poor. Procedure Code(s): --- Professional --- 38709, Colonoscopy, flexible; with control of bleeding, any method CPT copyright 2021 [employer]. All rights reserved. The codes documented in this report are preliminary and upon dairy farmer review may be revised to meet current compliance requirements. Ari Friend, DO 11/06/2024 7:48:14 PM This report has been signed electronically. Number of Addenda: 0 Note Initiated On: 11/06/2024 6:51 PM 11/06/241947 Date _ Ari Silvestre DO Cosigner Signature: Date (if indicated) CC: COMPLEX DIRECTORCatherine Olson; Ari Silvestre DO ~ Date Dictated: 11/06/241850 Date Transcribed: Mechanical Engineering Intern: RF Signed [facility]04-08-2025 Consult note [facility] Medical Records Department [address] [place] [address] Pre-Anesthesia Evaluation 11/06/241858 MR#: [id number] Acct: [id number] Name: JARED RAYMOND Rep #:[id number] : 1945 79 From: Keo Burgos MD PCP: MARYAM Guerra Status:ADM IN Y Race: C Location: [place] [address] 3-1 ASA Classification* ASA Classification ASA Classification: [...] 06:06 04/27/24 TSH 1.900 uIU/mL (0.300-4.200) 11/06/24 04:03/25 COAG PT 12.2 SECONDS (11.7-14.9) 11/05/24 22:42 Pre-Assessment Diagnosis/Proposed Procedure Planned Operative Procedure(s): Flexible sigmoidoscopy Anesthesia History Anesthesia History - care aid: Anesthesia History - care aid Hx Hospitalization Yes: 06/09/24 BIOPSY OF LIVER [...] sips of water?: Yes PONV PONV - care aid: PONV - care aid Female HX of Motion Sickness HX of N/V After Surgery Non-Smoker Duration of Surgery greater than 60 minutes Number of Risk Factors PONV Score Height & Weight Height & Weight: Anesthesia: Height & Weight Height 5 ft 7 in 11/06/24 09:29 Weight: 72 kg 11/06/24 09:29 Body Mass Index (BMI) 24.8 11/06/24 05:23 Respiratory Assessment Respiratory Assessment - care aid: Respiratory Tract Infection Hx - care aid Hx Respiratory Tract Infection Yes: Patient is recovering 06/22/24 12:11 from a cold/sinus congestion STOP Sleep Apnea STOP Sleep Apnea - care aid: STOP Sleep Apnea - care aid Hx Hypertension Yes 11/06/24 13:19 Hx Sleep [...] Tobacco Use History Tobacco Use History - care aid: Tobacco Use History - care aid Tobacco Use Cigarettes 01/25/23 14:01 Smoking Status Former smoker 11/06/24 13:51 Hx Tobacco Use Yes: Cigar 11/06/24 03:38 Years Smoking Packs Smoked per Day Smoking Cessation Date was Yes - quit smoking within 15 11/06/24 03:38 within the last 15 years years Hx Smoking Cessation Date 04/01/23 11/06/24 03:38 Hx Smoking Cessation Yes 11/06/24 03:38 Counseling Hematologic Medial History Hematologic Hx - care aid: Hematologic Medical Hx - clinic mgr Hx of Blood Transfusion Yes 11/06/24 03:38 [...] confused, unrespo /Reproduction History /Reproductive History - care aid: /Reproductive Hx- care aid Hx Now Gestational Age (in weeks): EDC: [...] MD Cosigner Signature: Date CC: ~ Signed [facility]04-08-2025 Consult note [facility] Medical Records Department [address] [facility] [place] [address] Consultation - GI 11/06/241853 MR#: [id number] Acct: [id number] Name: JARED RAYMOND Rep #:[id number] : 1945 79 From: Ari Friend DO PCP: MARYAM Guerra Status:ADM IN Location: [place] [address] HPI Consult Data Date of Consult: 11/06/24 [...] presents for evaluation. He originally presented to [facility] ED on 04/11/2024 with c/o [...] positive, MSI stable. Pathologic staging pT4 pN2b. [facility] Medical History Encounter for education Pre-op [...] % (Auto) Cancelled, Lymph % (Auto) Cancelled, Redwood % (Auto) Cancelled, Eos % (Auto) Cancelled, [...] Drop Cells Cancelled, Ovalocytes Cancelled, Stomatocytes Cancelled, Scott-Sandy Level Bodies Cancelled, Tani Cells Cancelled, Bite Cells [...] 76.8 H, Lymph % (Auto) 12.9 L, Redwood % (Auto) 8.9, Eos % (Auto) 0.6, [...] 74.5 H, Lymph % (Auto) 13.7 L, Redwood % (Auto) 9.8, Eos % (Auto) 1.4, [...] 78.1 H, Lymph % (Auto) 9.1 L, Redwood % (Auto) 11.9 H, Eos % (Auto) [...] findings as described above. Reading Location: [facility] Assessment & Plan Assessment/Plan (1) GI (gastrointestinal [...] s igmoidoscopy. Charges/Coding Visit Charges Inpatient E&M: 53127 Init Hosp L3 11/06/24 6439 Cosigner Signature (if applicable): CC: MARYAM Olson~ Signed [facility]04-08-2025 Progress note Author Stevie Harrington [facility] Note Date/Time November 06, 2024 2:[address] [facility] Medical Records Department [address] [place] [address] Progress Note - Hospitalist 11/06/24 0727 MR#: [id number] Acct: [id number] Name: JARED RAYMOND Rep #:[id number] : 1945 79 From: Stevie Harrington DO PCP: MARYAM Guerra Status:ADM IN Location: [place] [address] Reason for Visit Reason for Visit: Diagnoses [...] % (Auto) Cancelled, Lymph % (Auto) Cancelled, Redwood % (Auto) Cancelled, Eos % (Auto) Cancelled, [...] Drop Cells Cancelled, Ovalocytes Cancelled, Stomatocytes Cancelled, Scott-Sandy Level Bodies Cancelled, [place] Cells Cancelled, Bite Cells Cancelled, Crenated Cell [...] 76.8 H, Lymph % (Auto) 12.9 L, Redwood % (Auto) 8.9, Eos % (Auto) 0.6, [...] 74.5 H, Lymph % (Auto) 13.7 L, Redwood % (Auto) 9.8, Eos % (Auto) 1.4, [...] findings as described above. Reading Location: [facility] Physical Exam Const alert and no apparent [...] at bedside. Charges/Coding Visit Charges Inpatient E&M: 32968 Subs Hosp L2 11/06/24 9878 <Electronically signed by Stevie Harrington DO> Cosigner Signature (if applicable): CC: ~ Signed [facility] Work Phone: 1(133) 602-374104-08-2025 Progress note [facility] Medical Records Department [address] [place] [address] Progress Note - Hospitalist 11/06/24 0727 MR#: [id number] Acct: [id number] Name: JARED RAYMOND Rep #:[id number] : 1945 79 From: Stevie Harrington DO PCP: MARYAM Guerra Status:ADM IN Location: [place] [address] Reason for Visit Reason for Visit: Diagnoses [...] % (Auto) Cancelled, Lymph % (Auto) Cancelled, Redwood % (Auto) Cancelled, Eos % (Auto) Cancelled, [...] Drop Cells Cancelled, Ovalocytes Cancelled, Stomatocytes Cancelled, Scott-Sandy Level Bodies Cancelled, Tani Cells Cancelled, Bite Cells [...] 76.8 H, Lymph % (Auto) 12.9 L, Redwood % (Auto) 8.9, Eos % (Auto) 0.6, [...] 74.5 H, Lymph % (Auto) 13.7 L, Redwood % (Auto) 9.8, Eos % (Auto) 1.4, [...] stable findings as described above. Reading Location[facility] Physical Exam Const alert and no apparent [...] at bedside. Charges/Coding Visit Charges Inpatient E&M: 28398 Subs Hosp L2 11/06/24 4573 Cosigner Signature (if applicable): CC: ~ Signed [facility]04-08-2025 History and physical note Author Darrel Sanders [facility] Note Date/Time November 06, 2024 6:[address] [facility] Medical Records Department [address] [place] [address] H&P Exam - Hospitalist 11/06/24 0145 MR#: [id number] Acct: [id number] Name: JARED RAYMOND Rep #:[id number] : 1945 79 From: Darrel Qureshi DO PCP: MARYAM Guerra Status:ADM IN Location: [place] [address] HPI - General General Date of Admission: [...] of syncopal episodes who now returns to [facility] ER complaining of watery diarrhea [...] is expected to extend beyond 2 midnights. [facility] Medical History (Updated 11/06/24 @ 06:26 [...] % (Auto) Cancelled, Lymph % (Auto) Cancelled, Redwood % (Auto) Cancelled, Eos % (Auto) Cancelled, [...] Drop Cells Cancelled, Ovalocytes Cancelled, Stomatocytes Cancelled, Scott-Sandy Level Bodies Cancelled, Wickenburg Cells Cancelled, Bite Cells Cancelled, Crenated Cell [...] 76.8 H, Lymph % (Auto) 12.9 L, Redwood % (Auto) 8.9, Eos % (Auto) 0.6, [...] findings as described above. Reading Location: [facility] Assessment & Plan Assessment/Plan (1) GI (gastrointestinal [...] 75 minutes. Charges/Coding Visit Charges Inpatient E&M: 60054 Init Hosp L3 11/06/24 0656 <Electronically signed by Darrel Carpenter DO> Cosigner Signature (if applicable): CC: MARYAM Olson; Dr. Darrel Carpenter DO~ Signed [facility] Work Phone: 1(270) 143-435504-08-2025 Discharge summary Author Harrison Linares [facility] Note Date/Time November 06, 2024 5:46 am [facility] Medical Records Department [address] [place] [address] Emergency Department Summary 11/06/24 MR#: [id number] Acct: [id number] Name: JARED RAYMOND Rep #:[id number] : 1945 79 From: Harrison Linares DO PCP: MARYAM Guerra Status:ADM IN Location: [place] [id number] History of Present Illness Chief Complaint: [...] blood per rectum he presents for evaluation. 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 Silvestre. He recommends that with his [...] H Lymph % (Auto) Cancelled 12.9 L Redwood % (Auto) Cancelled 8.9 Eos % (Auto) [...] Drop Cells Cancelled Ovalocytes Cancelled Stomatocytes Cancelled Scott-Sandy Level Bodies Cancelled Wickenburg Cells Cancelled Bite Cells Cancelled Crenated Cell [...] findings as described above. Reading Location: [facility] Management Discussion w/another healthcare provider: Hospitalist and Town Manager Discharge Plan Dx/Rx/DC Orders Clinical Impression: GI (gastrointestinal bleed), Benign essential hypertension, Colon cancer, Hyponatremia, Diverticulosis Disposition Disposition: Acute Care Hospital [facility] Discharge Date/Time: 11/06/24 03:21 What to do if you have Problems For any increased pain, shortness of breath, bleeding, nausea or vomiting, chestpain, or any unexpected problems, contact your Primary Care Provider. Call [email or web address] ([phone]) or report to the closest Emergency Room. Call 911 if necessary. 11/06/24 0546 <Electronically signed by Harrison iLnares DO> Cosigner Signature (if applicable): CC: MARYAM Olson ~ Signed [facility] Work Phone: 1(430) 163-207404-08-2025 History and physical note [facility] Medical Records Department [address] [facility] [place] [address] H&P Exam - Hospitalist 11/06/24 0145 MR#: [id number] Acct: [id number] Name: JARED RAYMOND Rep #:[id number] : 1945 79 From: Darrel Qureshi DO PCP: MARYAM Guerra Status:ADM IN Location: [address] [facility] - General General Date of Admission: 11/06/24 [...] of syncopal episodes who now returns to [facility] ER complaining of watery diarrhea [...] is expected to extend beyond 2 midnights. [facility] Medical History (Updated 11/06/24 @ 06:26 [...] % (Auto) Cancelled, Lymph % (Auto) Cancelled, Redwood % (Auto) Cancelled, Eos % (Auto) Cancelled, [...] Drop Cells Cancelled, Ovalocytes Cancelled, Stomatocytes Cancelled, Scott-Sandy Level Bodies Cancelled, [place]ickenburg Cells Cancelled, Bite Cells Cancelled, Crenated Cell [...] 76.8 H, Lymph % (Auto) 12.9 L, Redwood % (Auto) 8.9, Eos % (Auto) 0.6, [...] stable findings as described above. Reading [facility] Assessment & Plan Assessment/Plan (1) GI (gastrointestinal [...] 75 minutes. Charges/Coding Visit Charges Inpatient E&M: 15051 Init Hosp 11/06/24 0656 Cosigner Signature (if applicable): CC: MARYAM Olson; Dr. Darrel Carpenter DO~ Signed [facility]04-08-2025 Discharge summary [facility] Medical Records Department [address] [facility] [place] [address] Emergency Department Summary 11/06/24 MR#: [id number] Acct: [id number] Name: JARED RAYMOND Rep #:[id number] : 1945 79 From: Harrison Linares DO PCP: MARYAM Guerra Status:ADM IN Location: [place] [address] HPI History of Present Illness Chief Complaint: [...] blood per rectum he presents for evaluation. [facility] Medical History (Updated 11/06/24 @ 05:[address] Harirson Linares DO) Encounter for education Pre-op testing [...] I did discuss the case with his bolt cutter Dr. Silvestre. He recommends that with his [...] H Lymph % (Auto) Cancelled 12.9 L Redwood % (Auto) Cancelled 8.9 Eos % (Auto) [...] Drop Cells Cancelled Ovalocytes Cancelled Stomatocytes Cancelled Scott-Sandy Level Bodies Cancelled Wickenburg Cells Cancelled Bite Cells Cancelled Crenated Cell [...] stable findings as described above. Reading [facility] Management Discussion w/another healthcare provider: Hospitalist and Town Manager Discharge Plan Dx/Rx/DC Orders Clinical Impression: GI (gastrointestinal bleed), Benign essential hypertension, Colon cancer, Hyponatremia, Diverticulosis Disposition Disposition: Acute Care Hospital [facility] Discharge Date/Time: 11/06/24 03:21 What to do if you have Problems For any increased pain, shortness of breath, bleeding, nausea or vomiting, chestpain, or any unexpected problems, contact your Primary Care Provider. Call [email or web address] ([phone]) or report tothe closest Emergency Room. Call 911 if necessary. 11/06/24 4004 Cosigner Signature (if applicable): CC: MARYAM Olson ~ Signed [facility]04-07-2025 Radiology Diagnostic study note [facility] Imaging Services [address] [place], [place] [address] CTA Abd/Pelvis W/WO Contrast MR#: [id number] Acct: [id number] Name: JARED RAYMOND Rep #: [id number] : 1945 M 79 From: Shakira Ramsey MD PCP: MARYAM Guerra Status: REG ER Study:CTA Abd/Pelvis W/WO Contrast Date of Ex am: 11/05/24 Exam# [id number] Ordering Dr: Erica Linares DO PROCEDURE: CTA [...] mesentery with limited distal opacification. Adrenal glands: Injl-dnhclsu-wxkb-right adrenal thickening. Kidneys/Ureters: Symmetric bilateral renal enhancement. [...] findings as described above. Reading Location: [facility] CC: MARYAM Olson; Harrison Linares DO ~ Mechanical Engineering Intern: Signed [facility]04-04-2025 Telephone encounter Note* Telephone Encounter - Filomena Rodrigues - 11/02/2024 2:30 PM EDT Patient and his daughter stopped in to talk to Jolynn Frias. 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 Please call patients daughter Teresa [phone] [facility]04-04-2025 Miscellaneous Notes* Telephone Encounter - Filomena Rodrigues - 11/02/2024 2:30 PM EDT Patient and his daughter stopped in to talk to Jolynn Frias. 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 November 28, 2024 10:59am Elevated blood pressure read ing with diagnosis of hypertension acute M ay 2024 11:24am Metastatic colon cancer to liver acu te December 04, 2024 11:24am 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 December 04, 2024 11:24am 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 December 042024 11:24am 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 December 04, 2024 11 :24am Anemia chronic January 09 3:16pm 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 January 09, 2025 3:16pm Colon cancer chronic January 09, 2 025 3:16pm 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 January 09, 2025 3:16pm 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 January 09, 2025 3:16pm Acute liver failure acute February 11, 2025 2:24am Ascites acute February 11 2:24am 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 February 11, 2025 2:24am [facility] [employer] Work Phone: 1(911) 438-490203-26-2025 Discharge summary [facility] Medical Records Department [address] [place] [address] Emergency Department Summary 10/24/24 MR#: [id number] Acct: [id number] Name: JARED RAYMOND Rep #:[id number] : 1945 79 From: Jerry Yuen PCP: MARYAM Guerra Status:REG ER Location: ED HPI History of Present Illness Chief Complaint: Flank Pain [facility] Medical History (Updated 10/24/24 @ 19:59 [...] Oxygen Delivery Method Room Air Room Air MDM MDM MDM Narrative Medical [...] History obtained from others: none Consults: none [facility] Narrative: The patient was initially hemodynamically [...] Discharge home This note was generated with Next Safety dictation software. It may contain incorrectwords, spelling, [...] 77.1 H Lymph % (Auto) 12.7 L [place] % (Auto) 8.4 Eos % (Auto) 1.0 [...] Clarity Clear Urine pH 8.0 Ur Specific [place] 1.010 Urine Protein 15 H Urine Glucose [...] SONOGRAPHIC EVIDENCE OF TESTICULAR TORSION. Reading Location: [facility] Discharge Plan Triage Chief Complaint: Flank [...] NP-C [Primary Care Provider] - Print Language: Russian What to do if you have Problems For any increased pain, shortness of breath, bleeding, nausea or vomiting, chestpain, or any unexpected problems, contact your Primary Care Provider. Call [facility] ([phone]) or report tothe closest Emergency Room. Call 911 if necessary. 10/24/242033 Cosigner Signature (if applicable): CC: MARYAM Olson ~ Signed [facility]03-26-2025 Radiology Diagnostic study note [facility] Imaging Services [address] [place], [place] [address] Testicular with Arterial Flow MR#: [id number] Acct: [id number] Name: JARED RAYMOND Rep #: [id number] : 1945 M 79 From: Vanessa Rosado MD PCP: MARYAM Guerra Status: REG ER Study:Testicular with Arterial Flow Date of E xam: 10/24/24 Exam# [id number] Ordering Dr: Robby Hightower DO PROCEDURE: TESTICULAR [...] SONOGRAPHIC EVIDENCE OF TESTICULAR TORSION. Reading Location: [id number] CC: MARYAM Olson; Dr. Jerry Hightower, DO ~ Mechanical Engineering Intern: Signed [facility]03-26-2025 Radiology Diagnostic study note [facility] Imaging Services [address] [place], [place] [address] Abdomen/Pelvis W IV Cont ONLY MR#: [id number] Acct: [id number] Name: JARED RAYMOND Rep #: [id number] : 1945 M 79 From: Vanessa Rosado MD PCP: MARYAM Guerra Status: REG CLI Study:Abdomen/Pelvis W IV Cont ONLY Date of E xam: 10/24/24 Exam# [id number] Ordering Dr: Thang Hernandez MD PROCEDURE: ABDOMEN/PELVIS [...] excluded. Attentionon follow-up imaging recommended. Reading Location: [id number] CC: MARYAM Olson; Dr. Papi Hernandez MD ~ Mechanical Engineering Intern: Signed [facility]03-26-2025 Discharge summary Author Jerry Hightower [facility] Note Date/Time October 24, 2024 8:3 4pm [facility] Medical Records Department [address] [place] [address] Emergency Department Summary 10/24/24 MR#: [id number] Acct: [id number] Name: JARED RAYMOND Rep #:[id number] : 1945 79 From: Jerry Yuen PCP: MARYAM Guerra Status:REG ER Location: ED HPI History of Present Illness Chief Complaint: Flank Pain [facility] Medical History (Updated 10/24/24 @ 19:[address] Jerry Hightower DO) Encounter for education Pre-op testing Wears [...] Oxygen Delivery Method Room Air Room Air [facility] Narrative Medical decision making narrative: HISTORY OF [...] History obtained from others: none Consults: none [facility] Narrative: The patient was initially hemodynamically [...] Discharge home This note was generated with Next Safety dictation software. It may contain incorrectwords, spelling, [...] 77.1 H Lymph % (Auto) 12.7 L [place] % (Auto) 8.4 Eos % (Auto) 1.0 [...] Clarity Clear Urine pH 8.0 Ur Specific [place] 1.010 Urine Protein 15 H Urine Glucose [...] SONOGRAPHIC EVIDENCE OF TESTICULAR TORSION. Reading Location: [facility] Discharge Plan Triage Chief Complaint: Flank [...] MARYAM [Primary Care Provider] - Print Language: Russian What to do if you have Problems For any increased pain, shortness of breath, bleeding, nausea or vomiting, chestpain, or any unexpected problems, contact your Primary Care Provider. Call [facility] ([phone]) or report to the closest Emergency Room. Call 911 if necessary. 10/24/242033 <Electronically signed by Jerry Hightower DO> Cosigner Signature (if applicable): CC: MARYAM Olson ~ Signed [facility] Work Phone: 1(614) 920-700403-19-2025 Evaluation note* Diagnosis Onset Date Resolution Status [...] metastasis present chronic December 04, 2024 11:24am [facility] Work Phone: 1(265) 593-670203-19-2025 Evaluation note* Diagnosis Onset Date Resolution Status [...] node metastasis present chronic January 09 3:16pm [facility] Work Phone: 1(575) 388-940803-19-2025 Evaluation note* Diagnosis Onset Date Resolution Status [...] node metastasis present chronic January 09 3:16pm Acute liver failure acute February 11, 2025 2:24am Ascites acute February 11 2:24am 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 February 11, 2025 2:24am [facility] Work Phone: 1(133) 575-209502-07-2025 History of Present illness Narrative* Encounter Date [...] seldom monitors, usually can tell by his [employer] puzzles. (+) eye vitamin PO Vision seems [...] Referred by Julissa Yap O.D. at [facility]. Wears OTC readers. Straight lines appear wavy in OS. [facility] Work Phone: 1([phone]) 133-514201-08-2025 Evaluation note* Diagnosis Onset Date Resolution Status [...] 2:56am GI bleed acute November 18 12:59pm [facility] Work Phone: 1(479) 595-319501-08-2025 Evaluation note* Diagnosis Onset Date Resolution Status [...] 2024 12:59pm Rectal bleeding acute October 12:59pm [facility] Work Phone: 1(390) 794-759801-08-2025 Evaluation note* Diagnosis Onset Date Resolution Status [...] metastasis present chronic December 04, 2024 11:24am [facility] Work Phone: 1(467) 950-286012-18-2024 Evaluation note* Diagnosis Onset Date Resolution Status [...] lymph node chronic November 06, 2024 2:56am [facility] Work Phone: 1(852) 605-340512-18-2024 Evaluation note* Diagnosis Onset Date Resolution Status [...] lymph node chronic November 06, 2024 2:56am [facility] Work Phone: 1([phone]) 303-210612-13-2024 Instructions* Date Instruction Additional Infor mation 7-8 [...] hemorrhage, left eye [facility] Work Phone: 1([phone]) 380-644812-04-2024 Evaluation note* Diagnosis Onset Date Resolution Status [...] 19, 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 October 17, 2024 2:04pm [facility] Work Phone: 1(847) 861-395211-22-2024 [facility]11-18-2024 [facility]11-10-2024 [facility] 05-01-2024 [facility]09-27-2024 [facility]09-15-2024 [facility]07-25-2022 Miscellaneous Notes * Telephone Encounter - Michela Saucedo - 02/22/2022 3:14 PM EDT Patient arrived at the [facility] in [place], [place] requesting an appointment to become established with a new PCP in this region. The patient reports having similar symptoms in the right upper extremity that he experienced prior to his quintuple bypass surgery. He was provided the phone number and name of the cardiac surgeon and was scheduled to see Dr. Chapman 05/28/22. Please advise patient if he should follow up with dairy farmer prior to PCP visit. [facility] History of Past illness Narrative* Problem Noted Date Resolved Date On mechanically assisted ventilation 07/19/2019 07/20/2019 Overview: Grade I airway A/P- WTE Stress hyperglycemia 07/19/2019 07/21/2019 Overview: H: Post op A/P-No h/o DM. [place]-operative insulin resistance and exacerbation of hyperglycemia. RHI drip per ICU protocol, transition to SSI documented as of this encounter (statuses as of 02/22/2022) [facility] Clinical Note Date No Information [facility] Work Phone: Consult note Author Kush Daniel [facility] Note Date/Time November 20, 2024 1:4 3pm [facility] Medical Records Department [address] [place] [address] Counseling Note - Pharmacy 11/20/24 1342 MR#: [id number] Acct: [id number] Name: JARED RAYMOND Rep #:[id number] : 1945 79 From: Kush Daniel PCP: MARYAM Guerra Status:ADM IN Y Location: [place] [address] Pharmacy [place] Med Reconciliation Pharmacy Service has performed discharge [...] Signature (if applicable): Date CC: ~ Signed [facility] Work Phone: Discharge summary* Clinical Note Date No Information [facility] Work Phone: Discharge summary Author Stevie Harrington [facility] Note Date/Time November 07, 2024 5:[address] [facility] Medical Records Department [address] [place] [address] Discharge Summary 11/07/24 1655 MR#: [id number] Acct: [id number] Name: JARED RAYMOND Rep #:[id number] : 1945 79 From: Stevie Harrington DO PCP: MARYAM Guerra Status:ADM IN Location: [place] [id number] Providers Date of Admission: 11/06/24 Primary Care Physician: MARYAM Guerra Consultations 11/06/24 03:28 Consult: Gastroenterology Routine Consulting Provider: [facility] Reason for Consult: LGIB with BRB[facility]; [...] 70.4 H, Lymph % (Auto) 14.8 L, [place] % (Auto) 12.5 H, Eos % (Auto) [...] Self Care Charges/Coding Visit Charges Inpatient E&M: 43893 Disch Hosp >30min 11/07/24 1707 <Electronically signed by Stevie Harrington DO> Cosigner Signature (if applicable): CC: MARYAM Olson; Dr. Stevie Harrington DO~ Signed [facility] Work Phone: Evaluation noteNo assessment information available [facility] Work Phone: Evaluation note* Diagnosis Onset Date Resolution Status Acute alteration in mental status acute Elevated troponin acute Chronic hypertension chronic [facility] Work Phone: Evaluation note* Diagnosis Onset Date Resolution Status Elevated troponin acute Chronic hypertension chronic Hypertensive emergency witho ut congestive heart failure resolved [facility] Work Phone: Evaluation note* Type Assessment Date No Information [facility] Work Phone: Evaluation note* Diagnosis Severe aortic stenosis- Primary Aortic valve disorders Severe aortic stenosis- Primary Aortic valve disorders [facility] Clinical Note Date No [...] begin a bowel regimen which will include dvox-mxq-pceztsa medicine such as senna, Colace and MiraLAX. Please return to the emergency department if your symptoms change or worsen. Please follow with your primary care physician for further outpatient evaluation and management.[facility] Work Phone: Hospital Discharge instructionsAdditional Instructions Date of Discharge: 02/12/25[facility] Work Phone: Progress note* Clinical Note Date No Information [facility] Work Phone: Reason for referral (narrative)* Reason For Referral No Information [facility] Work Phone: Repfsw for referral (narrative)No reason for referral information availableD[facility] Work Phone: Advance Directives Documents on File Type Date 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 Advance Directive(s) 07/18/2019 4:40 PM Advance Directive(s) 07/12/2019 2:31 PM Advance Directive(s) 05/14/2019 8:30 AM Advance Directive Response Recorded Date/ Time Advance Directives No October 31 11:26am Living Will Yes March 06, 2018 2:30pm Power of Sprayer Insecticide No March 06 2:30pm Advance Directive Response Recorded Date/ Time Advance Directives No October 31 10:26am Living Will Yes August 15 6:13pm Power of Sprayer Insecticide Yes August 15, 2023 6:13pm Name of Medical Power of Sprayer Insecticide [place] August 15, 2023 6:13pm Advance Directive Response Recorded Date/ Time Name of Medical Power of Sprayer Insecticide SPRING RAYMOND August 15, 2023 11:26pm Advance Directives No October 31 11:26am Living Will No December 11, 2023 2 :44am Power of Sprayer Insecticide No December 11, 2023 2:44am Directive Yes / No Effective Date File Name No Information Advance Directive Response Recorded Date/ Time Living Will Yes April 12, 2024 2:59am Do you have a Healthcare Power of Sprayer Insecticide? Yes April 12, 2024 2:59am Living Will Yes April 27, 2024 2:58pm Do you have a Healthcare Power of Sprayer Insecticide? Yes April 27, 2024 2:58pm Living Will Yes October 24, 2024 6:01pm Do you have a Healthcare Power of Sprayer Insecticide? Yes October 24, 2024 6:01pm Name of Medical Power of Sprayer Insecticide October 24, 2024 6:01pm Advance Directives No October 31 11:26am Advance Directive Response Recorded Date/ Time Living Will Yes April 12, 2024 2:59am Do you have a Healthcare Power of Sprayer Insecticide? Yes April 12, 2024 2:59am Living Will Yes April 27, 2024 2:58pm Do you have a Healthcare Power of Sprayer Insecticide? Yes April 27, 2024 2:58pm Living Will Yes October 24, 2024 6:01pm Do you have a Healthcare Power of Sprayer Insecticide? Yes October 24, 2024 6:01pm Name of Medical Power of Sprayer Insecticide October 24, 2024 6:01pm Living Will No November 05, 2024 10:42pm Do you have a Healthcare Power of Sprayer Insecticide? No November 05, 2024 10:42pm Advance Directives No October 31 11:26am Advance Directive Response Recorded Date/ Time Living Will Yes April 12, 2024 2:59am Do you have a Healthcare Power of Sprayer Insecticide? Yes April 12, 2024 2:59am Living Will Yes April 27, 2024 2:58pm Do you have a Healthcare Power of Sprayer Insecticide? Yes April 27, 2024 2:58pm Living Will Yes October 24, 2024 6:01pm Do you have a Healthcare Power of Sprayer Insecticide? Yes October 24, 2024 6:01pm Name of Medical Power of Sprayer Insecticide October 24, 2024 6:01pm Living Will No November 06, 2024 3:38am Do you have a Healthcare Power of Sprayer Insecticide? No November 06, 2024 3:38am Advance Directives No October 31 11:26am Advance Directive Response Recorded Date/ Time Living Will Yes April 12, 2024 2:59am Do you have a Healthcare Power of Sprayer Insecticide? Yes April 12, 2024 2:59am Living Will Yes April 27, 2024 2:58pm Do you have a Healthcare Power of Sprayer Insecticide? Yes April 27, 2024 2:58pm Living Will No November 18, 2024 10:49am Do you have a Healthcare Power of Sprayer Insecticide? No November 18, 2024 10:49am Living Will Yes October 24, 2024 6:01pm Do you have a Healthcare Power of Sprayer Insecticide? Yes October 24, 2024 6:01pm Name of Medical Power of Sprayer Insecticide October 24, 2024 6:01pm Living Will No November 06, 2024 3:38am Do you have a Healthcare Power of Sprayer Insecticide? No November 06, 2024 3:38am Advance Directives No October 31 11:26am Advance Directive Response Recorded Date/ Time Living Will Yes April 12, 2024 2:59am Do you have a Healthcare Power of Sprayer Insecticide? Yes April 12, 2024 2:59am Living Will Yes April 27, 2024 2:58pm Do you have a Healthcare Power of Sprayer Insecticide? Yes April 27, 2024 2:58pm Living Will No November 18, 2024 3:46pm Do you have a Healthcare Power of Sprayer Insecticide? No November 18, 2024 3:46pm Living Will Yes October 24, 2024 6:01pm Do you have a Healthcare Power of Sprayer Insecticide? Yes October 24, 2024 6:01pm Name of Medical Power of Sprayer Insecticide October 24, 2024 6:01pm Living Will No November 06, 2024 3:38am Do you have a Healthcare Power of Sprayer Insecticide? No November 06, 2024 3:38am Advance Directives No October 31 11:26am Advance Directive Response Recorded Date/ Time Living Will Yes April 12, 2024 2:59am Do you have a Healthcare Power of Sprayer Insecticide? Yes April 12, 2024 2:59am Living Will Yes April 27, 2024 2:58pm Do you have a Healthcare Power of Sprayer Insecticide? Yes April 27, 2024 2:58pm Living Will No November 18, 2024 3:46pm Do you have a Healthcare Power of Sprayer Insecticide? No November 18, 2024 3:46pm Living Will Yes October 24, 2024 6:01pm Do you have a Healthcare Power of Sprayer Insecticide? Yes October 24, 2024 6:01pm Name of Medical Power of Sprayer Insecticide October 24, 2024 6:01pm Living Will No November 06, 2024 3:38am Do you have a Healthcare Power of Sprayer Insecticide? No November 06, 2024 3:38am Living Will No January 14, 2025 9:01am Do you have a Healthcare Power of Sprayer Insecticide? No January 14, 2025 9:01am Advance Directives No January 14 9:01am Advance Directive Response Recorded Date/ Time Living Will Yes April 12, 2024 2:59am Do you have a Healthcare Power of Sprayer Insecticide? Yes April 12, 2024 2:59am Living Will Yes April 27, 2024 2:58pm Do you have a Healthcare Power of Sprayer Insecticide? Yes April 27, 2024 2:58pm Living Will No November 18, 2024 3:46pm Do you have a Healthcare Power of Sprayer Insecticide? No November 18, 2024 3:46pm Do you have a Healthcare Power of Sprayer Insecticide? No February 11, 2025 12:52am Living Will Yes October 24, 2024 6:01pm Do you have a Healthcare Power of Sprayer Insecticide? Yes October 24, 2024 6:01pm Name of Medical Power of Sprayer Insecticide October 24, 2024 6:01pm Living Will No November 06, 2024 3:38am Do you have a Healthcare Power of Sprayer Insecticide? No November 06, 2024 3:38am Living Will No January 14, 2025 9:01am Do you have a Healthcare Power of Sprayer Insecticide? No January 14, 2025 9:01am Advance Directives No January 14 9:01am Advance Directive Response Recorded Date/ Time Living Will Yes April 12, 2024 2:59am Do you have a Healthcare Power of Sprayer Insecticide? Yes April 12, 2024 2:59am Living Will Yes April 27, 2024 2:58pm Do you have a Healthcare Power of Sprayer Insecticide? Yes April 27, 2024 2:58pm Living Will No November 18, 2024 3:46pm Do you have a Healthcare Power of Sprayer Insecticide? No November 18, 2024 3:46pm Do you have a Healthcare Power of Sprayer Insecticide? Yes February 11, 2025 4:27am Living Will Yes October 24, 2024 6:01pm Do you have a Healthcare Power of Sprayer Insecticide? Yes October 24, 2024 6:01pm Name of Medical Power of Sprayer Insecticide October 24, 2024 6:01pm Living Will No November 06, 2024 3:38am Do you have a Healthcare Power of Sprayer Insecticide? No November 06, 2024 3:38am Living Will No January 14, 2025 9:01am Do you have a Healthcare Power of Sprayer Insecticide? No January 14, 2025 9:01am Advance Directives No January 14 9:01am Advance Directive Response Recorded Date/ Time Living Will Yes April 27, 2024 2:58pm Do you have a Healthcare Power of Sprayer Insecticide? Yes April 27, 2024 2:58pm Living Will No November 18, 2024 3:46pm Do you have a Healthcare Power of Sprayer Insecticide? No November 18, 2024 3:46pm Do you have a Healthcare Power of Sprayer Insecticide? Yes February 11, 2025 4:27am Living Will Yes October 24, 2024 6:01pm Do you have a Healthcare Power of Sprayer Insecticide? Yes October 24, 2024 6:01pm Name of Medical Power of Sprayer Insecticide October 24, 2024 6:01pm Living Will No November 06, 2024 3:38am Do you have a Healthcare Power of Sprayer Insecticide? No November 06, 2024 3:38am Living Will No January 14, 2025 9:01am Do you have a Healthcare Power of Sprayer Insecticide? No January 14, 2025 9:01am Advance Directives [...] 2024 2:12pm Encounter for education July 18, 8:52am 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-abdom inal [...] (gastrointestinal bleed) November 06, 2 025 2:56am Mediastinal lymphadenopathy November 06 2 025 2:56am RLQ abdominal pain November 06, [...] 2024 2:56 am Mediastinal lymphadenopathy November 06, 025 2:56am Medical non-compliance November 06, 2024 [...] 1:2 2pm F/U FROM [facility] TO DR Rose October 10:59am RE-EVALUATE November 28, 2024 12: [...] November 20, 2024 1:2 2pm F/U FROM [facility] TO DR Rose October 10:59am RE-EVALUATE November 28, 2024 12: [...] 1:2 2pm F/U FROM [facility] TO DR Rose October 10:59am RE-EVALUATE November 28, 2024 12: [...] November 20, 2024 1:2 2pm F/U FROM [facility] TO DR Rose October 10:59am RE-EVALUATE November 28, 2024 12: [...] November 20, 2024 1:2 2pm F/U FROM [facility] TO DR Rose October 10:59am RE-EVALUATE November 28, 2024 12: 43pm COLON CA November 30, 2024 2:21pm Hospital FU December 04, 2024 11:24a m Malignant neoplasm of ascending colon Ma y 2024 7:38am 2 ORDERING DRS December 14, 2024 3:07p m Nonrheumatic aortic (valve) stenosis Elton e 2024 8:08am REVIEW PATH January 09, 2025 3:16 [...] pm Regional lymph node metastasis present J [facility] 2024 3:16pm Chief Complaint Admit Date 6 [...] 1:2 2pm F/U FROM [facility] TO DR Rose October 10:59am RE-EVALUATE November 28, 2024 12: 43pm COLON CA November 30, 2024 2:21pm Hospital FU December 04, 2024 11:24a m Malignant neoplasm of ascending colon Ma y 2024 7:38am 2 ORDERING DRS December 14, 2024 3:07p m Nonrheumatic aortic (valve) stenosis Elton e 2024 8:08am REVIEW PATH January 09, 2025 3:16 pm Nonrheumatic aortic (valve) stenosis Elton e 2024 8:27am 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 S February 11, 2025 2:24am Chief Complaint Admit Date 6 M FU [...] November 20, 2024 1:2 2pm [facility] October 10:59am RE-EVALUATE November 28, 2024 12: 43pm COLON CA November 30, 2024 2:21pm Hospital FU December 04, 2024 11:24a m Malignant neoplasm of ascending colon Ma y 2024 7:38am 2 ORDERING DRS December 14, 2024 3:07p m Nonrheumatic aortic (valve) stenosis Dec 8:08am REVIEW PATH January 09, 2025 3:16 pm Nonrheumatic aortic (valve) stenosis Elton e 2024 8:27am 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 S February 11, 2025 2:24am 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 S February 12, 2025 6:55am Reason for Visit Admit Date RLQ abdominal [...] node metastasis present J une 2024 3:16pm Acute liver failure February 11, 2025 2:24 am Ascites February 11, 2025 2:24 am Metastasis to liver February 11, 2025 2:24 am Chief Complaint Admit Date 6 M FU [...] 1:2 2pm F/U FROM [facility] TO DR Rose October 10:59am RE-EVALUATE November 28, 2024 12: 43pm COLON CA November 30, 2024 2:21pm Hospital FU December 04, 2024 11:24a m Malignant neoplasm of ascending colon Ma y 2024 7:38am 2 ORDERING DRS December 14, 2024 3:07p m Nonrheumatic aortic (valve) stenosis Elton e 2024 8:08am REVIEW PATH January 09, 2025 3:16 pm Nonrheumatic aortic (valve) stenosis Elton e 2024 8:27am 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 S February 11, 2025 2:24am 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 S February 12, 2025 6:55am Secondary and unspecified malignant neop lasm of in February 14, 2025 8:38am Chief Complaint Admit Date MED ONC October 24, 2024 12: 58pm [...] 1:2 2pm F/U FROM HOSP-TRANSDER TO DR Rose October 10:59am RE-EVALUATE November 28, 2024 12: 43pm COLON CA November 30, 2024 2:21pm Hospital FU December 04, 2024 11:24a m Malignant neoplasm of ascending colon Ma y 2024 7:38am 2 ORDERING DRS December 14, 2024 3:07p m Nonrheumatic aortic (valve) stenosis Elton e 2024 8:08am REVIEW PATH January 09, 2025 3:16 pm Nonrheumatic aortic (valve) stenosis Elton e 2024 8:27am 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 S February 11, 2025 2:24am 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 S February 12, 2025 6:55am Secondary and unspecified malignant neop lasm of in February 14, 2025 8:38am ASCITES February 19, 2025 1:01 pm ASCITES February 19, 2025 1:31 pm PLEUREX CATH February 19, 2025 2:35 pm Reason for Visit Admit Date Colon cancer [...] node metastasis present J une 2024 3:16pm Acute liver failure February 11, 2025 2:24 am Ascites February 11, 2025 2:24 am Metastasis to liver February 11, 2025 2:24 am Summary Purpose Additional Source Comments Source Comments (unrecognize d section and content) In the event this informatio n is protected by the Federal Confidentiality of Alcohol and Drug Abuse Patient Records regulations: The Federal rules restrict any use of the information to criminally investigate or prosecute any alcohol or drug abuse patient.[facility] event this information is protected by the Federal Confidentiality of Alcohol and Drug Abuse Patient Records regulations: The Federal rules restrict any use of the information to criminally investigate or prosecute any alcohol or drug abuse patient.[facility] Reason for Visit (unrecogniz ed section and content) Reason Comments Patient Question Reason Onset Date Comments Orders 01/29/2025 CTA TAVR Care Teams (unrecognized sec tion and content) Chief [employer] Operator Relationship Specialty Start Date End Date Neville Islas DO [address] [place] [address] PCP - General Family Practice 05/07/19 Team Status: Active Member Role Status Dates Dr. Neville Islas DO Family Provider Active MARYAM Guerra Primary Care Provider Active Team Status: Inactive Member Role Status Dates MARYAM Guerra Primary Care Provide r, Attending Provider, Referring Provider Active Team Status: Active Member Role Status Dates Dr. Neville Islas DO Family Provider Active Dr. Neivlle Islas DO Primary Care Provider Active Team Status: Active Member Role Status Dates Dr. Neville Islas DO Primary Care Provider Active Dr. Jerry Hightower DO Emergency Provider Active Dr. Darrel Carpenter , DO Admit Provider, Attending Pr mei Active Team Status: Active Member Role Status Dates Dr. Neville Islas DO Primary Care Provider Active Dr. eJrry Hightower DO Emergency Provider Active Dr. Darrel [...] , DO Primary Care Provider Active Dr. Adrian Flores MD Attending Provider Active Dr. Darrel Carpenter , DO Referring Provider Active Team Status: Inactive Member Role Status Dates Dr. Neville Islas , DO Primary Care Provider, Attendin g Provider Active Team Status: Inactive Member Role Status Dates Dr. Neville Islas , Primary Care Provider Active Dr. Jerry Hightower [...] Mariela Olson NP-C Primary Care Provider Active Team Status: Inactive Member Role Status Dates Mariela Olson COMPLEX DIRECTOR-C Primary Care Provider Active Start: July 04, 2024 End: July 04, 2024 Mariela Olson COMPLEX DIRECTOR-C Referring Provider Active St art: July 04, 2024 End: July 04, 2024 Dr. Papi Hernandez MD Attending Provider Active S tart: July 04, 2024 End: July 04, 2024 Team Status: Inactive Member Role Status Dates Mariela Olson NP-C Primary Care Provider Active Start: July 18, 2024 End: July 18, 2024 Mariela Olson COMPLEX DIRECTOR-C Referring Provider Active St art: July 18, 2024 End: July 18, 2024 Selam Craig NP, COMPLEX DIRECTOR-C Attending Provider Active Start: July 18, 2024 End: July 18, 2024 Team Status: Inactive Member Role Status Dates Marielabruce Olson , COMPLEX DIRECTOR-C Primary Care Provider Active Start: August 08, 2024 End: August 08, 2024 Mariela Olson , COMPLEX DIRECTOR-C Referring Provider Active St art: August 08, 2024 End: August 08, 2024 Dr. Papi Hernandez MD Attending Provider Active S tart: August 08, 2024 End: August 08, 2024 Team Status: Inactive Member Role Status Dates Mariela Shahram , COMPLEX DIRECTOR-C Primary Care Provider Active Start: September 05, 2024 End: September 05, 2024 Mariela Shahram , COMPLEX DIRECTOR-C Attending Provider Active St art: September 05, 2024 End: September 05, 2024 Team Status: Inactive Member Role Status Dates Mariela Shahram , COMPLEX DIRECTOR-C Primary Care Provider Active Start: October 17, 2024 End: October 17, 2024 Mariela Olson , COMPLEX DIRECTOR-C Referring Provider Active St art: October 17, 2024 End: October 17, 2024 Malinda Webster COMPLEX DIRECTOR, COMPLEX DIRECTOR-C Attending Provider Active S tart: October 17, 2024 End: October 17, 2024 Team Status: Active Member Role Status Dates Marielabruce Olson , COMPLEX DIRECTOR-C Primary Care Provider Active Start: October 17, 2024 Malinda Webster COMPLEX DIRECTOR, COMPLEX DIRECTOR-C Attending Provider Active S tart: October 17, 2024 Malinda Webster COMPLEX DIRECTOR, COMPLEX DIRECTOR-C Referring Provider Active S tart: October 17, 2024 Team Status: Active Member Role Status Dates Marielabruce Olson , COMPLEX DIRECTOR-C Primary Care Provider Active Start: October 24, 2024 Dr. Papi Hernandez MD Attending Provider Active S tart: October 24, 2024 Dr. Papi Hernandez MD Referring Provider Active S tart: October 24, 2024 Team Status: Inactive Member Role Status Dates Mariela Olson , COMPLEX DIRECTOR-C Primary Care Provider Active Start: October 24, 2024 End: October 24, 2024 Dr. Jerry Hightower DO Emergency Provider Active Start: October 24, 2024 End: October 24, 2024 Team Status: Inactive Member Role Status Dates Mariela Shahram , COMPLEX DIRECTOR-C Primary Care Provider Active Start: October 17, 2024 End: October 17, 2024 Malinda Webster COMPLEX DIRECTOR, COMPLEX DIRECTOR-C Attending Provider Active S tart: October 17, 2024 End: October 17, 2024 Malinda Webster COMPLEX DIRECTOR, COMPLEX DIRECTOR-C Referring Provider Active S tart: October 17, 2024 End: October 17, 2024 Team Status: Inactive Member Role Status Dates Mariela Olson , COMPLEX DIRECTOR-C Primary Care Provider Active Start: October 24, 2024 End: October 24, 2024 Dr. Papi Hernandez MD Attending Provider Active S tart: October 24, 2024 End: October 24, 2024 Dr. Papi Hernandez MD Referring Provider Active S tart: October 24, 2024 End: October 24, 2024 Team Status: Inactive Member Role Status Dates Mariela Olson , COMPLEX DIRECTOR-C Primary Care Provider Active Start: October 24, 2024 End: October 24, 2024 Dr. Jerry Hightower DO Attending Provider Active Start: October 24, 2024 End: October 24, 2024 Dr. Jerry Hightower DO Emergency Provider Active Start: October 24, 2024 End: October 24, 2024 Team Status: Inactive Member Role Status Dates Mariela Olson , COMPLEX DIRECTOR-C Primary Care Provider Active Start: October 31, 2024 End: October 31, 2024 Mariela Olson , COMPLEX DIRECTOR-C Referring Provider Active St art: October 31, 2024 End: October 31, 2024 Dr. Papi Hernandez MD Attending Provider Active S tart: October 31, 2024 End: October 31, 2024 Team Status: Active Member Role Status Dates Mariela Olson , COMPLEX DIRECTOR-C Primary Care Provider Active Start: November 06, 2024 Dr. Harrison Linares , Emergency Provider Active Start: November 06, 2024 Dr. Darrel Carpenter , Admit Provider Active Start: November 06, 2024 Dr. Darrel Carpenter DO Attending Provider Active Start: November 06, 2024 Team Status: Inactive Member Role Status Dates Mariela Olson , COMPLEX DIRECTOR-C Primary Care Provider Active Start: November 06, 2024 End: November 07, 2024 Dr. Harrison Linares DO Emergency Provider Active Start: November 06, 2024 End: November 07, 2024 Dr. Darrel Carpenter , Admit Provider Active Start: November 06, 2024 End: November 07, 2024 Dr. Darrel Carpenter , Other Provider Active Start: November 06, 2024 End: November 07, 2024 Dr. Stevie Harrington , DO Attending Provider Active Start: November 06, 2024 End: November 07, 2024 Dr. Stevie Harrington , DO Other Provider Active Star t: November 06, 2024 Team Status: Active Member Role Status Dates Marielabruce Olson , COMPLEX DIRECTOR-C Primary Care Provider Active Start: November 06, [...] Member Role Status Dates Marielabruce Olson , COMPLEX DIRECTOR-C Primary Care Provider Active Start: November 07, [...] Member Role Status Dates Mariela Olson , COMPLEX DIRECTOR-C Primary Care Provider Active Start: November 06, 2024 Dr. Harrison Linares , DO Emergency Provider Active Start: November 06, 2024 Dr. Darrel Carpenter , DO Admit Provider Active Start: November 06, 2024 Dr. Darrel Carpenter , DO Other Provider Active Start: November 06, 2024 Dr. Stevie Harrington , DO Referring Provider Active Start: November 06, 2024 Dr. Stevie Harrington , DO Other Provider Active Star t: November 06, 2024 Dr. Ari Silvestre , DO Attending Provider Active Start: November 06, 2024 Team Status: Active Member Role Status Dates Mariela Olson , COMPLEX DIRECTOR-C Primary Care Provider Active Start: November 07, 2024 End: November 07, 2024 Dr. Adrian Flores MD Attending Provider Active S tart: November 07, 2024 End: November 07, 2024 Dr. Adrian Flores MD Referring Provider Active S tart: November 07, 2024 End: November 07, 2024 Team Status: Active Member Role Status Dates Mariela Olson COMPLEX DIRECTOR-C Primary Care Provider Active Start: November 18, 2024 Dr. Lazaro Sharp MD Emergency Provider Active Sta rt: November 18, 2024 Dr. Kelvin Schrader MD Admit Provider Active Start: November 18, 2024 Dr. Kelvin Schrader MD Attending Provider Active Start: November 18, 2024 Dr. Kelvin Schrader MD Referring Provider Active Start: November 18, 2024 Team Status: Inactive Member Role Status Dates Mariela Olson COMPLEX DIRECTOR-C Primary Care Provider Active Start: November 18, [...] NP-C Primary Care Provider Active Start: November 18, 2024 Dr. Lazaro Sharp MD Emergency Provider Active Sta rt: November 18, 2024 Dr. Kelvin Schrader MD Admit Provider Active Start: November 18, 2024 Dr. Kelivn Schrader MD Attending Provider Active Start: November [...] Start: November 19, 2024 Dr. Neville Jang , Other Provider Active S tart: November 19, [...] NP-C Primary Care Provider Active Start: November 18, [...] Active Start: November 19, 2024 Dr. Kelvin cShrader MD Other Provider Active Start: November 19, 2024 Dr. Neville Jang DO Attending Provider Active Start: November 19, 2024 Dr. Neville Jang DO Other Provider Active S tart: November 19, 2024 Team Status: Active Member Role Status Dates Mariela Olson , COMPLEX DIRECTOR-C Primary Care Provider Active Start: November 20, [...] Inactive Member Role Status Dates Mariela Olson COMPLEX DIRECTOR-C Primary Care Provider Active Start: November 28, 2024 End: November 28, 2024 Mariela Olson , COMPLEX DIRECTOR-C Referring Provider Active St art: November 28, 2024 End: November 28, 2024 Dr. Brenda Araujo MD Attending Provider Active Start: November 28, 2024 End: November 28, 2024 Team Status: Inactive Member Role Status Dates Mariela Olson , COMPLEX DIRECTOR-C Primary Care Provider Active Start: November 28, 2024 End: November 28, 2024 Malinda Webster COMPLEX DIRECTOR, COMPLEX DIRECTOR-C Attending Provider Active S tart: November 28, 2024 End: November 28, 2024 Malinda Webster COMPLEX DIRECTOR, COMPLEX DIRECTOR-C Referring Provider Active S tart: November 28, 2024 End: November 28, 2024 Team Status: Active Member Role Status Dates Mariela Olson COMPLEX DIRECTOR-C Primary Care Provider Active Start: November 28, 2024 Dr. Adrian Flores MD Attending Provider Active S tart: November 28, 2024 Team Status: Inactive Member Role Status Dates Mariela Olson , COMPLEX DIRECTOR-C Primary Care Provider Active Start: November 30, 2024 End: November 30, 2024 Dr. Brenda Araujo MD Attending Provider Active Start: November 30, 2024 End: November 30, 2024 Dr. Brenda Araujo MD Referring Provider Active Start: November 30, 2024 End: November 30, 2024 Team Status: Inactive Member Role Status Dates Mariela Olson , COMPLEX DIRECTOR-C Primary Care Provider Active Start: December 04, 2024 End: December 04, 2024 Mariela Olson COMPLEX DIRECTOR-C Referring Provider Active St art: December 04, 2024 End: December 04, 2024 Dr. rAi Silvestre DO Attending Provider Active Start: December 04, 2024 End: December 04, 2024 Team Status: Active Member Role Status Dates Mariela Olson COMPLEX DIRECTOR-C Primary Care Provider Active Start: December 05, 2024 Dr. Brenda Araujo MD Attending Provider Active Start: December 05, 2024 Dr. Brenda Araujo MD Referring Provider Active Start: December 05, 2024 Team Status: Inactive Member Role Status Dates Mariela Olson COMPLEX DIRECTOR-C Primary Care Provider Active Start: December 05, 2024 End: December 05, 2024 Dr. Brenda Araujo MD Attending Provider Active Start: December 05, 2024 End: December 05, 2024 Dr. Brenda Araujo MD Referring Provider Active Start: December 05, 2024 End: December 05, 2024 Team Status: Inactive Member Role Status Dates Mariela Olson COMPLEX DIRECTOR-C Primary Care Provider Active Start: December 14, 2024 End: December 14, 2024 Malinda Webster NP, COMPLEX DIRECTOR-C Attending Provider Active S tart: December 14, 2024 End: December 14, 2024 Dr. Brenda Araujo MD Referring Provider Active Start: December 14, 2024 End: December 14, 2024 Team Status: Inactive Member Role Status Dates Mariela Olson COMPLEX DIRECTOR-C Primary Care Provider Active Start: January 09, 2025 End: January 09, 2025 Mariela Olson COMPLEX DIRECTOR-C Referring Provider Active St art: January 09, 2025 End: January 09, 2025 Dr. 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 Adrian Flores MD Attending Provider Active S tart: January 06, 2025 Dr. Adrian Flores MD Referring Provider Active S tart: January 06, 2025 Dr. Adrian Flores MD Other Provider Active Start : January 06, 2025 Team Status: Inactive Member Role Status Dates Mariela Olson , COMPLEX DIRECTOR-C Primary Care Provider Active Start: January 14, 2025 End: January 14, 2025 Dr. Adrian Flores MD Attending Provider Active S tart: January 14, 2025 End: January 14, 2025 Dr. Adrian Flores MD Referring Provider Active S tart: January 14, 2025 End: January 14, 2025 Team Status: Active Member Role/Relationship Status Dates Mariela Olson , COMPLEX DIRECTOR-C Primary Care Provider Active Team Status: Inactive Member Role/Relationship Status Dates Mariela Olson , COMPLEX DIRECTOR-C Primary Care Provider Active Start: October 17, 2024 End: October 17, 2024 Mariela Olson , COMPLEX DIRECTOR-C Referring Provider Active St art: October 17, 2024 End: October 17, 2024 Malinda Webster COMPLEX DIRECTOR, COMPLEX DIRECTOR-C Attending Provider Active S tart: October 17, 2024 End: October 17, 2024 Team Status: Inactive Member Role/Relationship Status Dates Mariela Olson , COMPLEX DIRECTOR-C Primary Care Provider Active Start: October 17, 2024 End: October 17, 2024 Malinda Webster COMPLEX DIRECTOR, COMPLEX DIRECTOR-C Attending Provider Active S tart: October 17, 2024 End: October 17, 2024 Malinda Webster COMPLEX DIRECTOR, COMPLEX DIRECTOR-C Referring Provider Active S tart: October 17, 2024 End: October 17, 2024 Team Status: Active Member Role/Relationship Status Dates Mariela Olson , COMPLEX DIRECTOR-C Primary Care Provider Active Start: October 24, 2024 Dr. Papi Hernandez MD Attending Provider Active S tart: October 24, 2024 Dr. Papi Hernandez MD Referring Provider Active S tart: October 24, 2024 Team Status: Inactive Member Role/Relationship Status Dates Mariela Olson , COMPLEX DIRECTOR-C Primary Care Provider Active Start: October 24, 2024 End: October 24, 2024 Dr. Papi Hernandez MD Attending Provider Active S tart: October 24, 2024 End: October 24, 2024 Dr. Papi Hernandez MD Referring Provider Active S tart: October 24, 2024 End: October 24, 2024 Team Status: Inactive Member Role/Relationship Status Dates Marielabruce Olson , COMPLEX DIRECTOR-C Primary Care Provider Active Start: October 24, 2024 End: October 24, 2024 Dr. Jerry Hightower , DO Attending Provider Active Start: October 24, 2024 End: October 24, 2024 Dr. Jerry Hightower , DO Emergency Provider Active Start: October 24, 2024 End: October 24, 2024 Team Status: Inactive Member Role/Relationship Status Dates Mariela Shahram , COMPLEX DIRECTOR-C Primary Care Provider Active Start: October 31, 2024 End: October 31, 2024 Marielabruce Olson , COMPLEX DIRECTOR-C Referring Provider Active St art: October 31, 2024 End: October 31, 2024 Dr. Papi Hernandez MD Attending Provider Active S tart: October 31, 2024 End: October 31, 2024 Team Status: Inactive Member Role/Relationship Status Dates Mariela Shahram , COMPLEX DIRECTOR-C Primary Care Provider Active Start: November 06, [...] Team Status: Active Member Role/Relationship Status Dates Marielabruce Olson , COMPLEX DIRECTOR-C Primary Care Provider Active Start: November 06, 2024 Dr. Harrison Linares , Emergency Provider Active Start: November 06, 2024 Dr. Darrel Carpenter DO Admit Provider Active Start: November 06, 2024 Dr. Darrel Carpenter , Other Provider Active Start: November 06, 2024 Dr. Stevie Harrington DO Referring Provider Active Start: November 06, 2024 Dr. Stevie Harrington DO Other Provider Active Star t: November 06, 2024 Dr. Ari Silvestre , DO Attending Provider Active Start: November 06, 2024 Team Status: Active Member Role/Relationship Status Dates Mariela Olson , COMPLEX DIRECTOR-C Primary Care Provider Active Start: November 07, 2024 End: November 07, 2024 Dr. Adrian Flores MD Attending Provider Active S tart: November 07, 2024 End: November 07, 2024 Dr. Adrian Flores MD Referring Provider Active S tart: November 07, 2024 End: November 07, 2024 Team Status: Active Member Role/Relationship Status Dates Mariela Olson , COMPLEX DIRECTOR-C Primary Care Provider Active Start: November 07, 2024 Dr. Harrison Linares , Emergency Provider Active Start: November 07, 2024 Dr. Darrel Carpenter , Admit Provider Active Start: November 07, 2024 Dr. Darrel Carpenter DO Other Provider Active Start: November 07, 2024 Dr. Stevie Harrington DO Attending Provider Active Start: November 07, 2024 Dr. Stevie Harrington , Other Provider Active Star t: November 07, 2024 Team Status: Inactive Member Role/Relationship Status Dates Mariela Olson , COMPLEX DIRECTOR-C Primary Care Provider Active Start: November 18, [...] End: November 20, 2024 Dr. Neville Jang , Attending Provider Active Start: November 18, 2024 End: November 20, 2024 Team Status: Active Member Role/Relationship Status Dates Mariela Olson , COMPLEX DIRECTOR-C Primary Care Provider Active Start: November 18, 2024 Dr. Lazaro Sharp MD Emergency Provider Active Sta rt: November 18, 2024 Dr. Kelvin Schrader MD Admit Provider Active Start: November 18, 2024 Dr. Kelvin Schrader MD Attending Provider Active Start: November 18, 2024 Dr. Kelvin Schrader MD Other Provider Active Start: November 18, 2024 Team Status: Active Member Role/Relationship Status Dates Mariela Olson COMPLEX DIRECTOR-C Primary Care Provider Active Start: November 19, 2024 Dr. Lazaro Sharp MD Emergency Provider Active Sta rt: November 19, 2024 Dr. Kelvin cShrader MD Admit Provider Active Start: November 19, 2024 Dr. Kelvin Schrader MD Referring Provider Active Start: November 19, 2024 Dr. Kelvin Schrader MD Other Provider Active Start: November 19, 2024 Dr. Neville Jang , Other Provider Active S tart: November 19, 2024 Dr. Ari Silvestre , Attending Provider Active Start: November 19, 2024 Team Status: Active Member Role/Relationship Status Dates Mariela Olson COMPLEX DIRECTOR-C Primary Care Provider Active Start: November 19, [...] Active Member Role/Relationship Status Dates Mariela Olson COMPLEX DIRECTOR-C Primary Care Provider Active Start: November 20, [...] Member Role/Relationship Status Dates Mariela Olson , COMPLEX DIRECTOR-C Primary Care Provider Active Start: November 28, 2024 End: November 28, 2024 Mariela Shahram , COMPLEX DIRECTOR-C Referring Provider Active St art: November 28, 2024 End: November 28, 2024 Dr. Brenda Araujo MD Attending Provider Active Start: November 28, 2024 End: November 28, 2024 Team Status: Inactive Member Role/Relationship Status Dates Mariela Shahram , COMPLEX DIRECTOR-C Primary Care Provider Active Start: November 28, 2024 End: November 28, 2024 Malinda Webster COMPLEX DIRECTOR, COMPLEX DIRECTOR-C Attending Provider Active S tart: November 28, 2024 End: November 28, 2024 Malinda Webster COMPLEX DIRECTOR, COMPLEX DIRECTOR-C Referring Provider Active S tart: November 28, 2024 End: November 28, 2024 Team Status: Active Member Role/Relationship Status Dates Mariela Shahram , COMPLEX DIRECTOR-C Primary Care Provider Active Start: November 28, 2024 Dr. Adrian Flores MD Attending Provider Active S tart: November 28, 2024 Team Status: Inactive Member Role/Relationship Status Dates Mariela Shahram , COMPLEX DIRECTOR-C Primary Care Provider Active Start: November 30, 2024 End: November 30, 2024 Dr. Brenda Araujo MD Attending Provider Active Start: November 30, 2024 End: November 30, 2024 Dr. Brenda Araujo MD Referring Provider Active Start: November 30, 2024 End: November 30, 2024 Team Status: Inactive Member Role/Relationship Status Dates Mariela Shahram , COMPLEX DIRECTOR-C Primary Care Provider Active Start: December 04, 2024 End: December 04, 2024 Mariela Shahram , COMPLEX DIRECTOR-C Referring Provider Active St art: December 04, 2024 End: December 04, 2024 Dr. Ari Silvestre DO Attending Provider Active Start: December 04, 2024 End: December 04, 2024 Team Status: Inactive Member Role/Relationship Status Dates Mariela Shahram , COMPLEX DIRECTOR-C Primary Care Provider Active Start: December 05, 2024 End: December 05, 2024 Dr. Brenda Araujo MD Attending Provider Active Start: December 05, 2024 End: December 05, 2024 Dr. Brenda Araujo MD Referring Provider Active Start: December 05, 2024 End: December 05, 2024 Team Status: Inactive Member Role/Relationship Status Dates Mariela Shahram , COMPLEX DIRECTOR-C Primary Care Provider Active Start: December 14, 2024 End: December 14, 2024 Malinda Yisel Darin COMPLEX DIRECTOR, COMPLEX DIRECTOR-C Attending Provider Active S tart: December 14, 2024 End: December 14, 2024 Dr. Brenda Araujo MD Referring Provider Active Start: December 14, 2024 End: December 14, 2024 Team Status: Active Member Role/Relationship Status Dates Marielarbuce Olson , COMPLEX DIRECTOR-C Primary Care Provider Active Start: January 06, 2025 Dr. Adrian Flores MD Attending Provider Active S tart: January 06, 2025 Dr. Adrian Flores MD Referring Provider Active S tart: January 06, 2025 Dr. Adrian Flores MD Other Provider Active Start : January 06, 2025 Team Status: Inactive Member Role/Relationship Status Dates Marielabruce Olson , COMPLEX DIRECTOR-C Primary Care Provider Active Start: January 09, 2025 End: January 09, 2025 Marielabruce Olson , COMPLEX DIRECTOR-C Referring Provider Active St art: January 09, 2025 End: January 09, 2025 Dr. Brenda Araujo MD Attending Provider Active Start: January 09, 2025 End: January 09, 2025 Team Status: Inactive Member Role/Relationship Status Dates Mariela Shahram , COMPLEX DIRECTOR-C Primary Care Provider Active Start: January 14, 2025 End: January 14, 2025 Dr. Adrian Flores MD Attending Provider Active S tart: January 14, 2025 End: January 14, 2025 Dr. Adrian Flores MD Referring Provider Active S tart: January 14, 2025 End: January 14, 2025 Team Status: Active Member Role/Relationship Status Dates Mariela Shahram , COMPLEX DIRECTOR-C Primary Care Provider Active Start: February 07, 2025 Dr. Neville Islas DO Attending Provider Active Start: February 07, 2025 Team Status: Active Member Role/Relationship Status Dates Mariela Shahram , COMPLEX DIRECTOR-C Primary Care Provider Active Start: February 11, 2025 Dr. Harrison Linares DO Emergency Provider Active Start: February 11, 2025 Dr. Ramirez Horne DO Admit Provider Active Start: February 11, 2025 Dr. Ramirez Horne DO Attending Provider Active Start: February 11, 2025 Team Status: Inactive Member Role/Relationship Status Dates Mariela Shahram , COMPLEX DIRECTOR-C Primary Care Provider Active Start: February 11, 2025 End: February 12, 2025 Dr. Harrison Linares , DO Emergency Provider Active Start: February 11, 2025 End: February 12, 2025 Dr. Ramirez Horne , DO Admit Provider Active Start: February 11, 2025 End: February 12, 2025 Dr. Ramirez Horne , DO Other Provider Active Start: February 11, 2025 End: February 12, 2025 Dr. Darrel Galvan MD Attending Provider Active Start: February 11, 2025 End: February 12, 2025 Dr. Darrel Pearl , DO Other Provider Active Sta rt: February 11, 2025 End: February 12, 2025 Dr. Elzbieta Sanford MD Other Provider Active Start : February 11, 2025 End: February 12, 2025 Dr. Julissa Wetzel MD Other Provider Active St art: February 11, 2025 End: February 12, 2025 MARYAM Patrick Other Provider Active Sta rt: February 11, 2025 End: February 12, 2025 Nanci Islas NP COMPLEX DIRECTOR-C Other Provider Active Start: February 11, 2025 End: February 12, 2025 ONDINA nEciso Other Provider Active Start: 2024 End: February 12, 2025 Team Status: Active Member Role/Relationship Status Dates MARYAM Guerra Primary Care Provider Active Start: February 12, 2025 Dr. Harrison Linares , Emergency Provider Active Start: February 12, 2025 Dr. Ramirez Horne DO Admit Provider Active Start: February 12, 2025 Dr. Ramirez Horne DO Other Provider Active Start: February 12, 2025 Dr. Darrel Galvan MD Attending Provider Active Start: February 12, 2025 Dr. Darrel Galvan MD Other Provider Active Star t: February 12, 2025 Dr. Darrel Pearl DO Other Provider Active Sta rt: February 12, 2025 Dr. Elzbieta Sanford MD Other Provider Active Start : February 12, 2025 Dr. Julissa Wetzel MD Other Provider Active St art: February 12, 2025 MARYAM Patrick Other Provider Active Sta rt: February 12, 2025 Nanci Islas COMPLEX DIRECTOR, COMPLEX DIRECTOR-C Other Provider Active Start: February 12, 2025 ONDINA Enciso Other Provider Active Start: Dania baldwin 2024 Team Status: Inactive Member Role/Relationship Status Dates Mariela Shahram , COMPLEX DIRECTOR-C Primary Care Provider Active Start: February 07, 2025 End: February 07, 2025 Dr. Neville Islas DO Attending Provider Active Start: February 07, 2025 End: February 07, 2025 Team Status: Active Member Role/Relationship Status Dates Mariela Shahram , COMPLEX DIRECTOR-C Primary Care Provider Active Start: February 14, 2025 Mariela Olson , COMPLEX DIRECTOR-C Attending Provider Active St art: February 14, 2025 Mariela Olson , COMPLEX DIRECTOR-C Referring Provider Active St art: February 14, 2025 Team Status: Active Member Role/Relationship Status Dates Mariela Shahram , COMPLEX DIRECTOR-C Primary Care Provider Active Start: October 24, 2024 Dr. Papi Hernandez MD Attending Provider Active S tart: October 24, 2024 Dr. Papi Hernandez MD Referring Provider Active S tart: October 24, 2024 Team Status: Inactive Member Role/Relationship Status Dates Marielabruce Olson , COMPLEX DIRECTOR-C Primary Care Provider Active Start: October 24, 2024 End: October 24, 2024 Dr. Papi Hernandez MD Attending Provider Active S tart: October 24, 2024 End: October 24, 2024 Dr. Papi Hernandez MD Referring Provider Active S tart: October 24, 2024 End: October 24, 2024 Team Status: Inactive Member Role/Relationship Status Dates Mariela Olson , COMPLEX DIRECTOR-C Primary Care Provider Active Start: October 24, 2024 End: October 24, 2024 Dr. Jerry Hightower DO Attending Provider Active Start: October 24, 2024 End: October 24, 2024 Dr. Jerry Hightower DO Emergency Provider Active Start: October 24, 2024 End: October 24, 2024 Team Status: Inactive Member Role/Relationship Status Dates Mariela Olson , COMPLEX DIRECTOR-C Primary Care Provider Active Start: October 31, 2024 End: October 31, 2024 Mariela Olson , COMPLEX DIRECTOR-C Referring Provider Active St art: October 31, 2024 End: October 31, 2024 Dr. Papi Hernandez MD Attending Provider Active S tart: October 31, 2024 End: October 31, 2024 Team Status: Inactive Member Role/Relationship Status Dates Mariela Olson , COMPLEX DIRECTOR-C Primary Care Provider Active Start: November 06, [...] Member Role/Relationship Status Dates Mariela Olson , COMPLEX DIRECTOR-C Primary Care Provider Active Start: November 06, [...] Member Role/Relationship Status Dates Mariela Olson , COMPLEX DIRECTOR-C Primary Care Provider Active Start: November 07, 2024 End: November 07, 2024 Dr. Adrian Flores MD Attending Provider Active S tart: November 07, 2024 End: November 07, 2024 Dr. Adrian Flores MD Referring Provider Active S tart: November 07, 2024 End: November 07, 2024 Team Status: Active Member Role/Relationship Status Dates Mariela Olson , COMPLEX DIRECTOR-C Primary Care Provider Active Start: November 07, [...] Inactive Member Role/Relationship Status Dates Mariela Olson COMPLEX DIRECTOR-C Primary Care Provider Active Start: November 18, [...] Active Member Role/Relationship Status Dates Mariela Olson COMPLEX DIRECTOR-C Primary Care Provider Active Start: November 18, 2024 Dr. Lazaro Sharp MD Emergency Provider Active Sta rt: November 18, 2024 Dr. Kelvin Schrader MD Admit Provider Active Start: November 18, 2024 Dr. Kelvin Schrader MD Attending Provider Active Start: November 18, 2024 Dr. Kelvin Schrader MD Other Provider Active Start: November 18, 2024 Team Status: Active Member Role/Relationship Status Dates Mariela Olson COMPLEX DIRECTOR-C Primary Care Provider Active Start: November 19, [...] Member Role/Relationship Status Dates Mariela Olson , COMPLEX DIRECTOR-C Primary Care Provider Active Start: November 19, [...] Member Role/Relationship Status Dates Mariela Olson , COMPLEX DIRECTOR-C Primary Care Provider Active Start: November 20, [...] Member Role/Relationship Status Dates Mariela Olson , COMPLEX DIRECTOR-C Primary Care Provider Active Start: November 28, 2024 End: November 28, 2024 Mariela Olson , COMPLEX DIRECTOR-C Referring Provider Active St art: November 28, 2024 End: November 28, 2024 Dr. Brenda Araujo MD Attending Provider Active Start: November 28, 2024 End: November 28, 2024 Team Status: Inactive Member Role/Relationship Status Dates Mariela Olson , COMPLEX DIRECTOR-C Primary Care Provider Active Start: November 28, 2024 End: November 28, 2024 Malinda Webster COMPLEX DIRECTOR, COMPLEX DIRECTOR-C Attending Provider Active S tart: November 28, 2024 End: November 28, 2024 Malinda Webster COMPLEX DIRECTOR, COMPLEX DIRECTOR-C Referring Provider Active S tart: November 28, 2024 End: November 28, 2024 Team Status: Active Member Role/Relationship Status Dates Mariela Olson , COMPLEX DIRECTOR-C Primary Care Provider Active Start: November 28, 2024 Dr. Adrian Flores MD Attending Provider Active S tart: November 28, 2024 Team Status: Inactive Member Role/Relationship Status Dates Mariela Shahram , COMPLEX DIRECTOR-C Primary Care Provider Active Start: November 30, 2024 End: November 30, 2024 Dr. Brenda Araujo MD Attending Provider Active Start: November 30, 2024 End: November 30, 2024 Dr. Brenda Araujo MD Referring Provider Active Start: November 30, 2024 End: November 30, 2024 Team Status: Inactive Member Role/Relationship Status Dates Mariela Shahram , COMPLEX DIRECTOR-C Primary Care Provider Active Start: December 04, 2024 End: December 04, 2024 Mariela Shahram , COMPLEX DIRECTOR-C Referring Provider Active St art: December 04, 2024 End: December 04, 2024 Dr. Ari Silvestre DO Attending Provider Active Start: December 04, 2024 End: December 04, 2024 Team Status: Inactive Member Role/Relationship Status Dates Mariela Shahram , COMPLEX DIRECTOR-C Primary Care Provider Active Start: December 05, 2024 End: December 05, 2024 Dr. Brenda Araujo MD Attending Provider Active Start: December 05, 2024 End: December 05, 2024 Dr. Brenda Araujo MD Referring Provider Active Start: December 05, 2024 End: December 05, 2024 Team Status: Inactive Member Role/Relationship Status Dates Mariela Shahram , COMPLEX DIRECTOR-C Primary Care Provider Active Start: December 14, 2024 End: December 14, 2024 Malinda Webster COMPLEX DIRECTOR, COMPLEX DIRECTOR-C Attending Provider Active S tart: December 14, 2024 End: December 14, 2024 Dr. Brenda Araujo MD Referring Provider Active Start: December 14, 2024 End: December 14, 2024 Team Status: Active Member Role/Relationship Status Dates Mariela Shahram , COMPLEX DIRECTOR-C Primary Care Provider Active Start: January 06, 2025 Dr. Adrian Flores MD Attending Provider Active S tart: January 06, 2025 Dr. Adrian Flores MD Referring Provider Active S tart: January 06, 2025 Dr. Adrian Flores MD Other Provider Active Start : January 06, 2025 Team Status: Inactive Member Role/Relationship Status Dates Mariela Shahram , COMPLEX DIRECTOR-C Primary Care Provider Active Start: January 09, 2025 End: January 09, 2025 Mariela Olson NP-C Referring Provider Active St art: January 09, 2025 End: January 09, 2025 Dr. Brenda Araujo MD Attending Provider Active Start: January 09, 2025 End: January 09, 2025 Team Status: Inactive Member Role/Relationship Status Dates Mariela Olson COMPLEX DIRECTOR-C Primary Care Provider Active Start: January 14, 2025 End: January 14, 2025 Dr. Adrian Flores MD Attending Provider Active S tart: January 14, 2025 End: January 14, 2025 Dr. Adrian Flores MD Referring Provider Active S tart: January 14, 2025 End: January 14, 2025 Team Status: Inactive Member Role/Relationship Status Dates Mariela Olson NP-C Primary Care Provider Active Start: February 07, 2025 End: February 07, 2025 Dr. Neville Islas DO Attending Provider Active Start: February 07, 2025 End: February 07, 2025 Team Status: Inactive Member Role/Relationship Status Dates Mariela Olson NP-C Primary Care Provider Active Start: February 11, 2025 End: February 12, 2025 Dr. Harrison Linares , Emergency Provider Active Start: February 11, 2025 End: February 12, 2025 Dr. Ramirez Horne DO Admit Provider Active Start: February 11, 2025 End: February 12, 2025 Dr. Ramirez Horne DO Other Provider Active Start: February 11, 2025 End: February 12, 2025 Dr. Darrel Galvan MD Attending Provider Active Start: February 11, 2025 End: February 12, 2025 Dr. Darrel Pearl DO Other Provider Active Sta rt: February 11, 2025 End: February 12, 2025 Dr. Elzbieta Sanford MD Other Provider Active Start : February 11, 2025 End: February 12, 2025 Dr. Julissa Wetzel MD Other Provider Active St art: February 11, 2025 End: February 12, 2025 Antonina Lizarraga NP-C Other Provider Active Sta rt: February 11, 2025 End: February 12, 2025 Nanci Islas NP, COMPLEX DIRECTOR-C Other Provider Active Start: February 11, 2025 End: February 12, 2025 ONDINA Enciso Other Provider Active Start: 2024 End: February 12, 2025 Team Status: Active Member Role/Relationship Status Dates Mariela Olson NP-C Primary Care Provider Active Start: February 12, 2025 Dr. Harrison Linares , Emergency Provider Active Start: February 12, 2025 Dr. Ramirez Horne , DO Admit Provider Active Start: February 12, 2025 Dr. Ramirez Horne , Other Provider Active Start: February 12, 2025 Dr. Darrel Galvan MD Attending Provider Active Start: February 12, 2025 Dr. Darrel Galvan MD Other Provider Active Star t: February 12, 2025 Dr. Darrel Pearl DO Other Provider Active Sta rt: February 12, 2025 Dr. Elzbieta Sanford MD Other Provider Active Start : February 12, 2025 Dr. Julissa Wetzel MD Other Provider Active St art: February 12, 2025 Antonina Lizarraga NP-C Other Provider Active Sta rt: February 12, 2025 Nanci Islas NP, COMPLEX DIRECTOR-C Other Provider Active Start: February 12, 2025 ONDINA Enciso Other Provider Active Start: 2024 Team Status: Active Member Role/Relationship Status Dates Mariela Olson NP-C Primary Care Provider Active Start: February 14, 2025 Mariela Olson NP-C Attending Provider Active St art: February 14, 2025 Mariela Olson NP-Jenifer Referring Provider Active St art: February 14, 2025 Team Status: Active Member Role/Relationship Status Dates Mariela Olson NP-C Primary Care Provider Active Start: February 19, 2025 Dr. Julissa Wetzel MD Attending Provider Active Start: February 19, 2025 Dr. Julissa Wetzel MD Referring Provider Active Start: February 19, 2025 Team Status: Active Member Role/Relationship Status Dates Mariela Olson NP-C Primary Care Provider Active Start: February 19, 2025 Dr. Julissa Wetzel MD Referring Provider Active Start: February 19, 2025 Dr. Julissa Wetzel MD Other Provider Active St art: February 19, 2025 MARYAM Ag Attending Provider Active S tart: February 19, 2025 Team Status: Inactive Member Role/Relationship Status Dates MARYAM Guerra Primary Care Provider Active Start: February 19, 2025 End: February 19, 2025 MARYAM Guerra Referring Provider Active St art: February 19, 2025 End: February 19, 2025 Dr. Nicho Cantor MD Attending Provider Active Start: February 19, 2025 End: February 19, 2025 Goals (unrecognized section and content) Health Concern Goal Type Priority Status No Information (unrecognized sect ion and content) No Status Records FoundNo Status Records FoundNo Status Records FoundNo Status Records Found INFORMATION SOURCE (unrecogn ized section and content) DATE CREATED AUTHOR 01/14/2025 [facility] DATE CREATED AUTHOR AUTHOR'S ORGANIZ ATION 01/14/2025 [facility] DATE CREATED AUTHOR AUTHOR'S ORGANIZ ATION 02/17/2025 [facility] DATE CREATED AUTHOR AUTHOR'S ORGANIZ ATION 02/19/2025 [facility] FOR RECORDS PERTAINING TO PATIENTS WHO [...] BE BASED ON THE PRIMARY CLINICAL RECORDS. [employer] provides no warranty or guarantee of the accuracy or completeness of information in this document.
== END | disposition home or self-care (01) ==
PROVIDERS: PCP Nurse Practitioner Family; Referring Provider Emergency Medicine; Visit Provider Emergency Medicine
DX: C18.9 Malignant neoplasm of colon, unspecified (principal); R18.0 Malignant ascites
CPT/HCPCS: 76705

== ENCOUNTER 2025-02-21 12:05 | Day surgery (SDC) | payer SELFPAY ==
--- NOTE | 2025-02-18 15:15 | PAT.ANESEVAL ---
Pre-Assessment Diagnosis/Proposed Procedure Planned Operative Procedure(s): Insertion, Tunneled abdomen Tube, Pleurex Anesthesia History Anesthesia History - medical education specialist: Anesthesia History - medical education specialist Hx Hospitalization Yes: 10/2024 GI BLEED 02/18/25 13:29 Any Problems With Anesthesia Yes: SENSITIVE TO ANESTHETIC 02/18/25 13:29 Cholinesterase deficiency No 02/18/25 13:29 You/Your Family Experience No 02/18/25 13:29 fever (hyperthermia) with Relationship Recent Exposure to Contagious No 11/18/24 21:04 Disease Does patient have nerve No 02/18/25 13:29 stimulator Patient instructed to have device shut off --Does patient have Pacemaker or ICD? When Was Last Pacemaker Check QUESTION #4 FULL TEXT: You/Your Family Experience fever (hyperthermia) with Anesthesia Last Oral Intake Last Oral intake: Last Oral Intake NPO since Meds taken in AM with sips of water? Meds patient instructed to take am of surgery PONV PONV - medical education specialist: PONV - medical education specialist Female No 02/18/25 13:29 HX of Motion Sickness No 02/18/25 13:29 HX of N/V After Surgery No 02/18/25 13:29 Non-Smoker Yes 02/18/25 13:29 Duration of Surgery greater No 02/18/25 13:29 than 60 minutes Number of Risk Factors 1 02/18/25 13:29 PONV Score Low Risk 02/18/25 13:29 Height & Weight Height & Weight: Anesthesia: Height & Weight Height 5 ft 7 in 02/11/25 09:28 Respiratory Assessment Respiratory Assessment - medical education specialist: Respiratory Tract Infection Hx - medical education specialist Hx Respiratory Tract Infection No 02/18/25 13:29 STOP Sleep Apnea STOP Sleep Apnea - medical education specialist: STOP Sleep Apnea - medical education specialist Hx Hypertension Yes: CONTROLLED WITH MED 02/18/25 13:29 Hx Sleep Apnea No 02/18/25 13:29 CPAP No 11/19/24 13:52 BIPAP No 11/18/24 15:46 Do you snore loudly (louder No 02/18/25 13:29 than talking or can be heard Do you often feel tired/ No 02/18/25 13:29 fatigued/ sleepy during daytime? Has anyone observed you stop No 02/18/25 13:29 breathing during sleep? STOP Results Negative 02/18/25 13:29 QUESTION #5 FULL TEXT : Do you snore loudly (louder than talking or can be heard through closed doors)? Tobacco Use History Tobacco Use History - medical education specialist: Tobacco Use History - medical education specialist Tobacco Use Cigarettes 01/25/23 14:01 Smoking Status Former smoker 02/18/25 13:29 Hx Tobacco Use Yes: Cigar 02/18/25 13:29 Years Smoking Packs Smoked per Day Smoking Cessation Date was Yes - quit smoking within 15 02/18/25 13:29 within the last 15 years years Hx Smoking Cessation Date 04/01/23 02/18/25 13:29 Hx Smoking Cessation Yes 02/18/25 13:29 Counseling Hematologic Medial History Hematologic Hx - medical education specialist: Hematologic Medical Hx - insurance agent Hx of Blood Transfusion Yes 02/18/25 13:29 Hx of Transfusion in last 3 No 02/18/25 13:29 Months Date of Last Transfusion (if within last 3 months) Ever experience any problems No 02/18/25 13:29 with transfusion(s)? Specify any problems Hx of Preganancy in last 3 N/A 02/18/25 13:29 Months Nurse Filling Out Transfusion NBUCHER 02/18/25 13:29 & Questions: Date: 02/18/25 02/18/25 13:29 Time: 13:30 02/18/25 13:29 Patient unable to answer at this time (ie. confused, unrespo /Reproduction History /Reproductive History - medical education specialist: /Reproductive Hx- medical education specialist Hx Now No 02/18/25 13:29 Gestational Age (in weeks): EDC: Hx Hx Para Hx Section SAB No 02/18/25 13:29 PFSH Medical History (Updated 02/18/25 @ 13:37 by Ivonne Nelson) Wears glasses Cancer Uses wheelchair Low iron History of GI bleed Heartburn Shortness of breath on exertion 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 Rectal bleeding GI bleed Diverticulosis Encounter for education Mediastinal lymphadenopathy 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 Pre-op testing Wears dentures Arthritis Anemia Gastric reflux Former smoker History of edema History of echocardiogram History of stress test Cardiology follow-up encounter Aortic stenosis Preop cardiovascular exam Colon cancer Overweight (BMI 25.0-29.9) Colonic mass Coronary artery disease 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 Chronic hypertension Acute alteration in mental status Neuropathy Vasectomy planned Hyponatremia TIA (transient ischemic attack) CVA (cerebral vascular accident) Hypertension History of stroke Tobacco use Benign essential hypertension Home Medications ?Medication ?Instructions ?Recorded ?Last Taken ?Type amlodipine 5 mg tablet 5 mg PO DAILY HEART 05/16/24 11/05/24 History clonidine HCl 0.1 mg tablet 0.1 mg PO DAILY PRN hbp 06/08/24 10/06/24 History ferrous sulfate 325 mg (65 mg 325 mg PO DAILY 30 days #60 tabs 06/10/24 11/05/24 Rx iron) tablet (Iron (ferrous sulfate)) metoprolol tartrate 50 mg tablet 25 mg PO QDAY Blood pressure/heart 10/17/24 11/05/24 History rat oxycodone 5 mg tablet 5 mg PO Q4H PRN pain 7 days #30 01/15/25 Unknown Rx tabs Allergy/AdvReac Type Severity Reaction Status Date / Time No Known Allergies Allergy Verified 02/18/25 13:27 Family History Father Arthritis Alcohol abuse Mother Alcohol abuse Liver disease Surgical History (Updated 02/18/25 @ 13:37 by Ivonne Nelson) History of cardiac catheterization History of hemicolectomy (04/25/24) H/O vasectomy S/P right hemicolectomy History of tonsillectomy History of appendectomy 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) Social History Smoking Status: Former smoker Tobacco: How many years used: 15 alcohol intake: never substance use type: does not use Audit: Pertinent Findings Pertinent Findings EKG Perinent findings: November 07, 2024. Normal sinus rhythm. Incomplete right bundle branch block. Nonspecific ST abnormality. Compared to EKG of June 08, 2024 there is no significant change. Stress test pertinent findings: August 16, 2023. EF is 73%. Negative myocardial perfusion study for reversible myocardial ischemia. Echo (EF%) pertinent findings: November 28, 2024. EF is 65%. PASP is 24 mmHg. Severe aortic valve stenosis. Peak aortic valve gradient is 74 mmHg. Mean aortic valve gradient is 44 mmHg. Consult pertinent findings: October 17, 2024. Darin FRANCISCO. 1. History of CABG?chronic-FUNG to the LAD. Left radial artery to the side ramus. SVG 1 to the obtuse marginal 1. SVG 2 to the side of the posterior descending artery(PDA). SVG 3 to the posterolateral. Last stress test in August was negative for myocardial ischemia. 2. Aortic stenosis?chronic-last echo in August 2023 had a peak gradient of 52 and a mean gradient of 32 mmHg. Repeat echo to evaluate stenosis progression. (See above). 3. Hypertension?chronic-controlled. Recommendation Anesthesia Recommendation Anesthesia recommendation: F/U recommended (Would like a cardiology update addressing the progression of the aortic stenosis to severe status on the latest echo.)
--- NOTE | 2025-02-20 16:00 | PAT.ANESEVAL ---
Pre-Assessment Diagnosis/Proposed Procedure Planned Operative Procedure(s): Insertion, Tunneled abdomen Tube, Pleurex Anesthesia History Anesthesia History - fiction and nonfiction author: Anesthesia History - fiction and nonfiction author Hx Hospitalization Yes: 10/2024 GI BLEED 02/18/25 13:29 Any Problems With Anesthesia Yes: SENSITIVE TO ANESTHETIC 02/18/25 13:29 Cholinesterase deficiency No 02/18/25 13:29 You/Your Family Experience No 02/18/25 13:29 fever (hyperthermia) with Relationship Recent Exposure to Contagious No 11/18/24 21:04 Disease Does patient have nerve No 02/18/25 13:29 stimulator Patient instructed to have device shut off --Does patient have Pacemaker or ICD? When Was Last Pacemaker Check QUESTION #4 FULL TEXT: You/Your Family Experience fever (hyperthermia) with Anesthesia Last Oral Intake Last Oral intake: Last Oral Intake NPO since Meds taken in AM with sips of water? Meds patient instructed to take am of surgery PONV PONV - fiction and nonfiction author: PONV - fiction and nonfiction author Female No 02/18/25 13:29 HX of Motion Sickness No 02/18/25 13:29 HX of N/V After Surgery No 02/18/25 13:29 Non-Smoker Yes 02/18/25 13:29 Duration of Surgery greater No 02/18/25 13:29 than 60 minutes Number of Risk Factors 1 02/18/25 13:29 PONV Score Low Risk 02/18/25 13:29 Height & Weight Height & Weight: Anesthesia: Height & Weight Height 5 ft 7 in 02/11/25 09:28 Respiratory Assessment Respiratory Assessment - fiction and nonfiction author: Respiratory Tract Infection Hx - fiction and nonfiction author Hx Respiratory Tract Infection No 02/18/25 13:29 STOP Sleep Apnea STOP Sleep Apnea - fiction and nonfiction author: STOP Sleep Apnea - fiction and nonfiction author Hx Hypertension Yes: CONTROLLED WITH MED 02/18/25 13:29 Hx Sleep Apnea No 02/18/25 13:29 CPAP No 11/19/24 13:52 BIPAP No 11/18/24 15:46 Do you snore loudly (louder No 02/18/25 13:29 than talking or can be heard Do you often feel tired/ No 02/18/25 13:29 fatigued/ sleepy during daytime? Has anyone observed you stop No 02/18/25 13:29 breathing during sleep? STOP Results Negative 02/18/25 13:29 QUESTION #5 FULL TEXT : Do you snore loudly (louder than talking or can be heard through closed doors)? Tobacco Use History Tobacco Use History - fiction and nonfiction author: Tobacco Use History - fiction and nonfiction author Tobacco Use Cigarettes 01/25/23 14:01 Smoking Status Former smoker 02/18/25 13:29 Hx Tobacco Use Yes: Cigar 02/18/25 13:29 Years Smoking Packs Smoked per Day Smoking Cessation Date was Yes - quit smoking within 15 02/18/25 13:29 within the last 15 years years Hx Smoking Cessation Date 04/01/23 02/18/25 13:29 Hx Smoking Cessation Yes 02/18/25 13:29 Counseling Hematologic Medial History Hematologic Hx - fiction and nonfiction author: Hematologic Medical Hx - parts professional Hx of Blood Transfusion Yes 02/18/25 13:29 Hx of Transfusion in last 3 No 02/18/25 13:29 Months Date of Last Transfusion (if within last 3 months) Ever experience any problems No 02/18/25 13:29 with transfusion(s)? Specify any problems Hx of Preganancy in last 3 N/A 02/18/25 13:29 Months Nurse Filling Out Transfusion NBUCHER 02/18/25 13:29 & Questions: Date: 02/18/25 02/18/25 13:29 Time: 13:30 02/18/25 13:29 Patient unable to answer at this time (ie. confused, unrespo /Reproduction History /Reproductive History - fiction and nonfiction author: /Reproductive Hx- fiction and nonfiction author Hx Now No 02/18/25 13:29 Gestational Age (in weeks): EDC: Hx Hx Para Hx Section SAB No 02/18/25 13:29 PFSH Medical History Wears glasses Cancer Uses wheelchair Low iron History of GI bleed Heartburn Shortness of breath on exertion 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 Rectal bleeding GI bleed Diverticulosis Encounter for education Mediastinal lymphadenopathy 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 Pre-op testing Wears dentures Arthritis Anemia Gastric reflux Former smoker History of edema History of echocardiogram History of stress test Cardiology follow-up encounter Aortic stenosis Preop cardiovascular exam Colon cancer Overweight (BMI 25.0-29.9) Colonic mass Coronary artery disease 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 Chronic hypertension Acute alteration in mental status Neuropathy Vasectomy planned Hyponatremia TIA (transient ischemic attack) CVA (cerebral vascular accident) Hypertension History of stroke Tobacco use Benign essential hypertension Home Medications ?Medication ?Instructions ?Recorded ?Last Taken ?Type amlodipine 5 mg tablet 5 mg PO DAILY HEART 05/16/24 11/05/24 History clonidine HCl 0.1 mg tablet 0.1 mg PO DAILY PRN hbp 06/08/24 10/06/24 History ferrous sulfate 325 mg (65 mg 325 mg PO DAILY 30 days #60 tabs 06/10/24 11/05/24 Rx iron) tablet (Iron (ferrous sulfate)) metoprolol tartrate 50 mg tablet 25 mg PO QDAY Blood pressure/heart 10/17/24 11/05/24 History rat oxycodone 5 mg tablet 5 mg PO Q4H PRN pain 7 days #30 01/15/25 Unknown Rx tabs Allergy/AdvReac Type Severity Reaction Status Date / Time No Known Allergies Allergy Verified 02/19/25 14:51 Family History Father Arthritis Alcohol abuse Mother Alcohol abuse Liver disease Surgical History History of cardiac catheterization History of hemicolectomy (04/25/24) H/O vasectomy S/P right hemicolectomy History of tonsillectomy History of appendectomy 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) Social History Smoking Status: Former smoker Tobacco: How many years used: 15 alcohol intake: never substance use type: does not use Audit: Pertinent Findings HISTORY of Pertinent Findings History of Pertinent Findings: EKG Pertinent Findings EKG Perinent findings November 07, 2024. Normal sinus 02/18/25 15:23 rhythm. Incomplete right bundle branch block. Nonspecific ST abnormality. Compared to EKG of June 08, 2024 there is no significant change. Stress Test Pertinent Findings Stress test pertinent findings August 16, 2023. EF is 73% 02/18/25 15:23 . Negative myocardial perfusion study for reversible myocardial ischemia. Echo Pertinent Findings Echo (EF%) pertinent findings November 28, 2024. EF is 65%. 02/18/25 15:20 PASP is 24 mmHg. Severe aortic valve stenosis. Peak aortic valve gradient is 74 mmHg. Mean aortic valve gradient is 44 mmHg. Consult Pertinent Findings Consult pertinent findings October 17, 2024. Darin FRANCISCO. 02/18/25 15:31 1. History of CABG?chronic- FUNG to the LAD. Left radial artery to the side ramus. SVG 1 to the obtuse marginal 1. SVG 2 to the side of the posterior descending artery(PDA). SVG 3 to the posterolateral. Last stress test in August was negative for myocardial ischemia. 2. Aortic stenosis?chronic- last echo in August 2023 had a peak gradient of 52 and a mean gradient of 32 mmHg. Repeat echo to evaluate stenosis progression. (See above). 3. Hypertension?chronic- controlled. Pertinent Findings Additional pertinent findings: Patient is in hospice. Pleurx catheter is being placed for comfort care only. Patient is as good as he is going to get. Recommendation Anesthesia Recommendation Anesthesia recommendation: OPTIMIZED for anesthesia (Patient is in hospice. Pleurx catheter is being placed for comfort care only. Patient is as good as he is going to get.)
[2025-02-21] VITALS (8 sets, daily range): BP systolic 132–180; BP diastolic 54–80; PULSE 66–68; RESP 14–24; TEMP 36.1–36.9; O2SAT 100; BMI 25.5
--- NOTE | 2025-02-21 12:45 | PCM.HP.BLA ---
History and Physical Date of Admission: 02/21/25 Intake Vital Signs 02/11/2509:28 02/19/2514:49 Height 5 ft 7 in 5 ft 7 in Weight: 145 lb BMI 22.7 BP 167/67 H Blood Pressure Location Lt brachial Position Sitting Respiration 17 Pulse 62 Pulse Source Monitor Temp 97.0 F L Temp Source Temporal Pulse Oximetry (%) 97 Oxygen Delivery Method room air Intake Visit Reasons: PLEUREX CATH Chief Complaint: pleurex cath Accompanied by: and daughter Is patient in pain?: Yes Allergies No Known Allergies Allergy (Verified 02/19/25 14:51) Medications ?Medication ?Instructions ?Recorded ?Confirmed ?Type amlodipine 5 mg tablet 5 mg PO DAILY HEART 05/16/24 02/19/25 History clonidine HCl 0.1 mg tablet 0.1 mg PO DAILY PRN hbp 06/08/24 02/19/25 History ferrous sulfate 325 mg (65 mg 325 mg PO DAILY 30 days #60 tabs 06/10/24 02/19/25 Rx iron) tablet (Iron (ferrous sulfate)) metoprolol tartrate 50 mg tablet 25 mg PO QDAY Blood pressure/heart 10/17/24 02/19/25 History rat oxycodone 5 mg tablet 5 mg PO Q4H PRN pain 7 days #30 01/15/25 02/19/25 Rx tabs Have you fallen in the past year?: No PFSH Medical History Wears glasses Cancer Uses wheelchair Low iron History of GI bleed Heartburn Shortness of breath on exertion 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 Rectal bleeding GI bleed Diverticulosis Encounter for education Mediastinal lymphadenopathy 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 Pre-op testing Wears dentures Arthritis Anemia Gastric reflux Former smoker History of edema History of echocardiogram History of stress test Cardiology follow-up encounter Aortic stenosis Preop cardiovascular exam Colon cancer Overweight (BMI 25.0-29.9) Colonic mass Coronary artery disease 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 Chronic hypertension Acute alteration in mental status Neuropathy Vasectomy planned Hyponatremia TIA (transient ischemic attack) CVA (cerebral vascular accident) Hypertension History of stroke Tobacco use Benign essential hypertension Surgical History History of cardiac catheterization History of hemicolectomy (04/25/24) H/O vasectomy S/P right hemicolectomy History of tonsillectomy History of appendectomy 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) Family History Father Arthritis Alcohol abuseMother Alcohol abuse Liver disease Social History Smoking Status: Former smoker Tobacco: How many years used: 15 alcohol intake: never substance use type: does not use HPI HPI HPI: The patient is an 79-year-old male with colon cancer with metastasis and liver failure. The patient is here for Pleurx catheter placement for ascites which is recurring. The patient had 2 paracentesis procedures last week. He is still having abdominal pain. He is jaundiced. He is in a hospice. ROS General General: Yes weakness; No weight change, appetite, fatigue, colon cancer or breast cancer HEENT HEENT: No difficulty swallowing, eye injury, eye surgery, swollen glands or hoarseness Endo Endocrine: No thyroid disease, diabetes mellitus, thyroid cancer, Hair loss, heat intolerance or cold intolerance Skin Skin: No rash or changing moles Musc Musculoskeletal: No back problems, arthritis, rheumatoid arthritis, gout or joint pain Cardio Cardiovascular: Yes murmur, high blood pressure and shortness of breath with exertion; No pacemaker, heart disease, atrial fibrillation, heart attack, heart stent, palpitations or chest pain Psych Psychiatric: No depression, anxiety or hearing voices Resp Respiratory: No shortness of breath, No sleep apnea, Yes cough, No COPD, No asthma, No emphysema and No wheezing Gastro Gastrointestinal: No abdominal pain, No nausea or vomiting, No diarrhea, No constipation, No blood in stool, No acid reflux, No hemorrhoids, No ulcers, No gallbladder problem and No black,tarry stools Aleks Hematologic: Yes blood thinners, No blood disorders, No bleeding, No anemia and No blood clots Additional Details: ASA Neuro Neurologic: No system reviewed and no additional complaints, except as documented, No as per HPI, No abnormal gait, No abnormal hearing, No abnormal movements, No abnormal speech, No behavioral changes, Yes burning sensations, No confusion, No convulsions, Yes disequilibrium, Yes dizziness, No localized weakness, No frequent falls, No headache(s), No lack of coordination, No loss of vision, No memory loss, Yes numbness, No other visual disturbances, Yes radicular pain, No restless legs, No sensory deficit, No syncope, Yes tingling, No tremor(s), Yes weakness and No other Exam Const General: cooperative Orientation: alert and oriented x3 HENMT Head: normal to inspection Neck Neck: normal visual inspection and full ROM Chest Chest palpation & inspection: normal inspection of the chest Resp Effort & Inspection: normal respiratory effort Auscultation: clear to auscultation bilaterally Cardio Rate: regular rate Rhythm: regular rhythm GI Inspection: non-distended Palpation: soft and nontender Skin General: no rashes or lesions noted Neuro General: patient alert and patient oriented x3 Extrem General: full ROM Psych Appearance: grossly normal Mental Status: mental status grossly normal Assessment and Plan Assessment and Plan (1) Ascites: Status: Acute (2) Acute liver failure: Status: Acute (3) Metastatic colon cancer to liver: Status: Acute Plan I discussed placing an abdominal Pleurx catheter for drainage of the ascites as a palliative measure. Patient understands the risks and is willing to proceed. I discussed the risks of bleeding, infection, injury to underlying bowel or organs. Patient would like to proceed. Nicho Cantor MD Pager: [facility] [address] [place] [address], [address] [place] [address] Office: I have examined the patient and the H&P has been reviewed. There are no clinical changes since date of exam.
[2025-02-21] MEDS: Lactated Ringers 1,000 ML 15 ML IV (13:00)
--- NOTE | 2025-02-21 13:08 | PRE.ANES_ITS ---
ASA Classification* ASA Classification ASA Classification: 4 Assessment & Plan Anesthesia* Anesthesia Assessment Anesthesia Assessment: Discussed sedation and/or anesthesia options, risks, benefits, and alternatives with patient/parents/legal guardian/POA. Questions invited. The patient/parents/legal guardian/POA seems to understand and agrees to proceed with anesthesia plan. Reviewed the physical assessment, medical history, allergy history and patient home medications list prior to surgery/procedure/anesthetic and documented any changes. Performed airway and anesthesia risk assessments. Anesthesia Type Anesthesia Type: MAC History Source History Obtained from:: Patient and Chart Anesthesia Focused Assessment* Temperature: 98.5 F Pulse Rate: 66 Blood Pressure: 132/54 Respiratory Rate: 14 Pulse Ox: 100 Oxygen Delivery Method: Room Air Airway Assessment Mouth opens: >3 cm Mallampati Score: II Teeth Condition: Missing (All teeth missing) Neck Range of motion (ROM): Full ROM Labs Anesthesia Preop lab: CBC WBC 6.4 K/mm3 (4.4-11.0) 02/12/25 05:02/12/25 RBC 3.44 M/mm3 (4.6-6.2) L 02/12/25 05:30 02/12/25 Hgb 10.0 g/dL (13.0-16.5) L 02/12/25 05: 5 Hct 28.6 % (40-54) L 02/12/25 05:30 02/12/25 Plt Count 232 K/mm3 (150-450) 02/12/25 05:30 02/12/25 CHEMISTRY Potassium 3.8 mmol/L (3.3-5.1) 02/12/25 05:30 02/12/25 Sodium 127 mmol/L (133-145) L 02/12/25 05:30 02/12/25 Magnesium 1.9 mg/dL (1.5-2.2) 02/12/25 05:30 02/12/25 Phosphorus 3.0 mg/dL (2.7-4.5) 02/12/25 05:30 02/12/25 BUN 12 mg/dL (4-19) 02/12/25 05:30 02/12/25 Creatinine 0.83 mg/dL (0.70-1.20) 02/12/25 05:30 02/12/25 Glucose 116 mg/dL (70-99) H 02/12/25 05:30 02/12/25 POC Glucose 113 mg/dL (74-106) H 04/27/24 06:06 04/27/24 TSH 1.900 uIU/mL (0.300-4.200) 11/06/24 04:23 04/0 03/25 COAG PT 13.6 SECONDS (11.7-14.9) 02/10/25 22:59 Pre-Assessment Diagnosis/Proposed Procedure Planned Operative Procedure(s): Insertion, Tunneled abdomen Tube, Pleurex Anesthesia History Anesthesia History - labor and delivery nurse: Anesthesia History - labor and delivery nurse Hx Hospitalization Yes: 10/2024 GI BLEED 02/18/25 13:29 Any Problems With Anesthesia Yes: SENSITIVE TO ANESTHETIC 02/18/25 13:29 Cholinesterase deficiency No 02/18/25 13:29 You/Your Family Experience No 02/18/25 13:29 fever (hyperthermia) with Relationship Recent Exposure to Contagious No 02/21/25 12:52 Disease Does patient have nerve No 02/18/25 13:29 stimulator Patient instructed to have device shut off --Does patient have Pacemaker No 02/21/25 12:52 or ICD? When Was Last Pacemaker Check QUESTION #4 FULL TEXT: You/Your Family Experience fever (hyperthermia) with Anesthesia Any additional information?: No Last Oral Intake Last Oral intake: Last Oral Intake NPO since 20:00 02/21/25 12:52 Meds taken in AM with sips of Yes 02/21/25 12:52 water? Meds patient instructed to see chart 02/21/25 12:52 take am of surgery Any additional information?: No PONV PONV - labor and delivery nurse: PONV - labor and delivery nurse Female No 02/18/25 13:29 HX of Motion Sickness No 02/18/25 13:29 HX of N/V After Surgery No 02/18/25 13:29 Non-Smoker Yes 02/18/25 13:29 Duration of Surgery greater No 02/18/25 13:29 than 60 minutes Number of Risk Factors 1 02/18/25 13:29 PONV Score Low Risk 02/18/25 13:29 Any additional information?: No Height & Weight Height & Weight: Anesthesia: Height & Weight Height 5 ft 7 in 02/21/25 12:52 Weight: 74 kg 02/21/25 12:52 Body Mass Index (BMI) 25.5 02/21/25 12:52 Respiratory Assessment Respiratory Assessment - labor and delivery nurse: Respiratory Tract Infection Hx - labor and delivery nurse Hx Respiratory Tract Infection No 02/18/25 13:29 Any additional information?: No STOP Sleep Apnea STOP Sleep Apnea - labor and delivery nurse: STOP Sleep Apnea - labor and delivery nurse Hx Hypertension Yes: CONTROLLED WITH MED 02/18/25 13:29 Hx Sleep Apnea No 02/18/25 13:29 CPAP No 11/19/24 13:52 BIPAP No 11/18/24 15:46 Do you snore loudly (louder No 02/18/25 13:29 than talking or can be heard Do you often feel tired/ No 02/18/25 13:29 fatigued/ sleepy during daytime? Has anyone observed you stop No 02/18/25 13:29 breathing during sleep? STOP Results Negative 02/18/25 13:29 QUESTION #5 FULL TEXT : Do you snore loudly (louder than talking or can be heard through closed doors)? Any additional information?: No Tobacco Use History Tobacco Use History - labor and delivery nurse: Tobacco Use History - labor and delivery nurse Tobacco Use Cigarettes 01/25/23 14:01 Smoking Status Former smoker 02/18/25 13:29 Hx Tobacco Use Yes: Cigar 02/18/25 13:29 Years Smoking Packs Smoked per Day Smoking Cessation Date was Yes - quit smoking within 15 02/18/25 13:29 within the last 15 years years Hx Smoking Cessation Date 04/01/23 02/18/25 13:29 Hx Smoking Cessation Yes 02/18/25 13:29 Counseling Any additional information?: No Hematologic Medial History Hematologic Hx - labor and delivery nurse: Hematologic 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 Specify any problems Hx of Preganancy in last 3 N/A 02/18/25 13:29 Months Nurse Filling Out Transfusion NBUCHER 02/18/25 13:29 & Questions: Date: 02/18/25 02/18/25 13:29 Time: 13:30 02/18/25 13:29 Patient unable to answer at this time (ie. confused, unrespo Any additional information?: No /Reproduction History /Reproductive History - labor and delivery nurse: /Reproductive Hx- labor and delivery nurse Hx Now No 02/18/25 13:29 Gestational Age (in weeks): EDC: Hx Hx Para Hx Section SAB No 02/18/25 13:29 Any additional information?: No Active Medications Active Medications: Current Medications Generic Name Dose Route Start Last Admin Trade Name Freq PRN Reason Stop Dose Admin Lactated Ringer's 1,000 mls @ 15 mls/hr 02/21/25 12:30 02/21/25 13:00 IV 15 mls/hr .Q48H EVITA Administration PFSH Medical History Wears glasses Cancer Uses wheelchair Low iron History of GI bleed Heartburn Shortness of breath on exertion 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 Rectal bleeding GI bleed Diverticulosis Encounter for education Mediastinal lymphadenopathy 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 Pre-op testing Wears dentures Arthritis Anemia Gastric reflux Former smoker History of edema History of echocardiogram History of stress test Cardiology follow-up encounter Aortic stenosis Preop cardiovascular exam Colon cancer Overweight (BMI 25.0-29.9) Colonic mass Coronary artery disease 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 Chronic hypertension Acute alteration in mental status Neuropathy Vasectomy planned Hyponatremia TIA (transient ischemic attack) CVA (cerebral vascular accident) Hypertension History of stroke Tobacco use Benign essential hypertension Home Medications ?Medication ?Instructions ?Recorded ?Last Taken ?Type amlodipine 5 mg tablet 5 mg PO DAILY HEART 05/16/24 02/21/25 History clonidine HCl 0.1 mg tablet 0.1 mg PO DAILY PRN hbp 10/06/24 History ferrous sulfate 325 mg (65 mg 325 mg PO DAILY 30 days #60 tabs 06/10/24 02/20/25 Rx iron) tablet (Iron (ferrous sulfate)) metoprolol tartrate 50 mg tablet 25 mg PO QDAY Blood p ressure/heart 10/17/24 02/21/25 History rat oxycodone 5 mg tablet 5 mg PO Q4H PRN pain 7 days #30 01/15/25 Unknown Rx tabs Allergy/AdvReac Type Severity Reaction Status Date / Time No Known Allergies Allergy Verified 02/21/25 12:47 Family History Father Arthritis Alcohol abuse Mother Alcohol abuse Liver disease Surgical History History of cardiac catheterization History of hemicolectomy (04/25/24) H/O vasectomy S/P right hemicolectomy History of tonsillectomy History of appendectomy 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
--- NOTE | 2025-02-21 13:59 | OP.PCM_ITS ---
Operative Report (Standard) Operative Information Date of Procedure: 02/21/25 Pre-Operative Diagnosis: Ascites and malignancy Post-Operative Diagnosis: Same Surgery/Procedure Performed: Ultrasound-guided abdominal Pleurx catheter placement audio visual project manager: No Type of Anesthesia: Local MAC RN Documented Start/Stop Times: Operation Date: 02/21/25 13:30 Case Time Into Pre-Op 02/21/25 12:21 Anesthesia Start 02/21/25 13:31 Into Room 02/21/25 13:31 Out of Pre-Op 02/21/25 13:31 Procedure Start 02/21/25 13:40 Procedure End 02/21/25 13:49 Anesthesia End 02/21/25 13:58 Out of Room 02/21/25 13:58 Procedure Start Time: 13:40 Procedure Stop Time: 13:49 Select all DRAINS/GRAFTS/IMPLANTS that apply: Drains Drain details: Pleurx in the abdomen Estimated Blood Loss: 5 Specimen collected: No Description of surgery: Patient was brought back to the operating room and MAC anesthesia was induced. The right abdomen was prepped and draped in usual sterile fashion. An area of the abdomen was localized using ultrasound and marked. It was injected with local anesthetic. There was another area of skin inferior to this this was injected with local anesthetic. A small incision was made at each skin site. The catheter was tunneled from the lower skin site to the upper skin site. Next the needle was used under ultrasound guidance to access the ascites through the upper incision. Catheter was placed over the needle and the needle was removed. A guidewire was placed through the catheter and then the catheter was removed. A peel-away sheath was placed over the guidewire and placed into the abdomen and the wire was removed. The catheter was placed through the peel-away sheath and the peel-away sheath was removed. The upper incision was closed with a 3-0 Vicryl suture and Dermabond. The catheter was sutured to the skin using 3-0 silk suture. Dressing was applied. Catheter was then connected to suction and 2 L of ascites was drained. The catheter was then capped and the patient was sent to PACU. Surgical Findings: 2 L of ascites drained Complications Complications: No Admit VTE Documentation VTE Mechan Device Prophylaxis: SCD's
--- NOTE | 2025-02-21 14:02 | EX.PCM.DISCH ---
Discharge Instructions Diet Discharge Diet: No restrictions Activity Discharge Activity: Return to Normal Activity Dressing / Incision Call your doctor if your incision/area has: Continuous Slow Oozing, Sudden Increased Bleeding, Increased Pain/ Swelling, Increased Redness, Foul Smelling Discharge and Swelling at the incision site Call your doctor if you observe: Fever of 101 or Higher and Inability to have a bowel movement Remove Dressing in: 4 days Cleanse incision/area with: Soap & Water Follow Up Care Please Follow Up With: Nicho Cantor MD When: as needed. [phone] Test Results: Test results from this visit will be discussed in further detail at your follow-up appointment, if applicable. Discharge Plan Admission Attending Provider: Nicho Cantor Primary Care Provider: Tami Omalley Instructions Print Language: Pashto Discharge Orders/Prescriptions Prescriptions: No Action metoprolol tartrate 50 mg tablet 25 mg PO QDAY amlodipine 5 mg tablet 5 mg PO DAILY ferrous sulfate [Iron (ferrous sulfate)] 325 mg (65 mg iron) tablet 325 mg PO DAILY 30 Days Qty: 60 5RF clonidine HCl 0.1 mg tablet 0.1 mg PO DAILY PRN (Reason: hbp) Patient Comments: pt states he only takes if bp is over 200+ oxycodone 5 mg tablet 5 mg PO Q4H PRN (Reason: pain) 7 Days Qty: 30 0RF Referrals / Follow Up: Tami Omalley, CUSTODIAN MANAGER-C [Primary Care Provider] - Disposition Disposition (needs filled in before D/C Order can be placed): Home, Self Care
--- NOTE | 2025-02-21 14:04 | PCM.POST.ANE ---
Anesthesia: Postop Eval I Current Vital Signs Temperature: 97.0 F Pulse Rate: 67 Blood Pressure: 180/80 Respiratory Rate: 24 Pulse Ox: 100 Oxygen Delivery Method: Room Air Assessment Airway patent: Yes Spontaneous unlabored respirations: Yes Mental status: Awake and Calm nausea: No Vomiting: No Anesthesia Complication: No Fluid Hydration Crystalloid volume administer (ml): 400 Total IV fluid infused: 400 Progress Note Anesthesia document: Postop Eval 1 completed: Yes
--- NOTE | 2025-02-21 14:57 | POSTOPAN2_ITS ---
Anesthesia Postop Eval I Sum Postop Eval Completion status Anesthesia document: Postop Eval 1 completed: Yes Anesthesia Postop Eval I Summary Anesthesia Postop Eval I Summary: Anesthesia Postop Eval I: Assessment Summary Airway patent Yes 02/21/25 14:05 SPECIAL PROCEDURE [email or web address] Spontaneous unlabored Yes 02/21/25 14:05 SPECIAL PROCEDURE [email or web address] respirations Mental status Awake,Calm 02/21/25 14:05 SPECIAL PROCEDURE [email or web address] nausea No 02/21/25 14:05 SPECIAL PROCEDURE [email or web address] Vomiting No 02/21/25 14:05 SPECIAL PROCEDURE [email or web address] Anesthesia Postop Eval I: Fluid Summary Crystalloid volume administer 400 02/21/25 14:05 SPECIAL PROCEDURE [email or web address] (ml) Colloids volume administered ( ml) Blood Product volume administered (ml) Total IV fluid infused 400 02/21/25 14:05 SPECIAL PROCEDURE [email or web address] Anesthesia Postop Eval I: Summary Notes Anesthesia Complication No 02/21/25 14:05 SPECIAL PROCEDURE [email or web address] Anesthesia Complication Comment: Post-operative progress note Anesthesia: Postop Eval II Evaluation Mental status: Awake and Calm Pain Level: 1 nausea: No Vomiting: No Complications Anesthesia Complication: No
--- NOTE | 2025-02-21 14:57 | PCM.POSTANE2 ---
Anesthesia Postop Eval I Sum Postop Eval Completion status Anesthesia document: Postop Eval 1 completed: Yes Anesthesia Postop Eval I Summary Anesthesia Postop Eval I Summary: Anesthesia Postop Eval I: Assessment Summary Airway patent Yes 02/21/25 14:05 [email or web address] Spontaneous unlabored Yes 02/21/25 14:05 LOGISTICS [email or web address] respirations Mental status Awake,Calm 02/21/25 14:05 LOGISTICS [email or web address] nausea No 02/21/25 14:05 LOGISTICS [email or web address] Vomiting No 02/21/25 14:05 [email or web address] Anesthesia Postop Eval I: Fluid Summary Crystalloid volume administer 400 02/21/25 14:05 [email or web address] (ml) Colloids volume administered ( ml) Blood Product volume administered (ml) Total IV fluid infused 400 02/21/25 14:05 [email or web address] Anesthesia Postop Eval I: Summary Notes Anesthesia Complication No 02/21/25 14:05 [email or web address] Anesthesia Complication Comment: Post-operative progress note Anesthesia: Postop Eval II Evaluation Mental status: Awake and Calm Pain Level: 1 nausea: No Vomiting: No Complications Anesthesia Complication: No
== END 2025-02-21 15:49 | disposition home or self-care (01) ==
LOC: SDC 12:07 → AC 12:10
PROVIDERS: PCP Nurse Practitioner Family; Referring Provider Surgery; Visit Provider Surgery
PROC: (CPT 32550; principal; 2025-02-21 13:15)
DX: K72.00 Acute and subacute hepatic failure without coma (principal); C78.5 Secondary malignant neoplasm of large intestine and rectum; C18.9 Malignant neoplasm of colon, unspecified; R18.8 Other ascites; I25.10 Atherosclerotic heart disease of native coronary artery without angina pectoris; I10 Essential (primary) hypertension; Z90.49 Acquired absence of other specified parts of digestive tract; Z95.1 Presence of aortocoronary bypass graft; Z79.899 Other long term (current) drug therapy; Z87.891 Personal history of nicotine dependence
CPT/HCPCS: 32550; 00520; C1729

== ENCOUNTER 2025-02-22 00:39 | Emergency (ER) | payer SELFPAY ==
[2025-02-22 00:41] VITALS: BP 155/67; PULSE 73; RESP 18; TEMP 36.9; O2SAT 98; BMI 24.5
[2025-02-22 00:45] VITALS: BP 141/66; PULSE 73; RESP 18; TEMP 36.9; O2SAT 97
--- OUTSIDE RECORDS SUMMARY | 2025-02-22 01:07 | XMS RPT_ITS | CCD ---
Author Organization [facility] Care Team Providers Care Supervisor Microbiology Technologists Name Role Phone Neville Islas DO Primary [...] Provider Darrel Pringle MD Unavailable Unavailable Shahram COMMISSION SALES ASSOCIATE-C, Mariela Primary Care Provider Shahram COMMISSION SALES ASSOCIATE-C, Mariela Referring Provider [phone] Papi Hernandez MD Attending Provider Rafa COMMISSION SALES ASSOCIATE-C, Selam Attending Provider Shahram COMMISSION SALES ASSOCIATE-C, Mariela Attending Provider Darin COMMISSION SALES ASSOCIATE-CMalinda Attending Provider Darin COMMISSION SALES ASSOCIATE-C, Malinda Morillo Referring Provider Dr. Papi Hernandez MD Referring Provider Dr. Jerry Hightower DO Emergency Provider Dr. Jerry Hightower DO Attending Provider Shahram COMMISSION SALES ASSOCIATE-C, Sigel Primary Care Provider Shahram COMMISSION SALES ASSOCIATE-C, Mariela Referring Provider Mary DAVIS, Dr. Turpin Attending Provider Vijay FARLEY, Dr. Terry Emergency Provider de Tommy DO, Dr. Rojo Admit Provider Unavail able de Tommy DO, Dr. Rojo Attending Provider Unav ailable de Tommy DO, Dr. Rojo Other Provider Unavail able Santappmarysol FARLEY, Dr. Hubbard Attending Provider Juany FARLEY, Dr. Hubbard Other Provider Friend , Dr. Chapman Attending Provider Shahram COMMISSION SALES ASSOCIATE-C, Sigel Primary Care Provider Shahram COMMISSION SALES ASSOCIATE-C, Mariela Referring Provider Juany FARLEY, Dr. Hubbard [...] Dr. Neville Jang DO Other Provider Shahram COMMISSION SALES ASSOCIATE-C, Sigel Primary Care Provider Shahram COMMISSION SALES ASSOCIATE-C, Mariela Referring Provider Mary DAVIS, Dr. Turpin Attending Provider Shahram COMMISSION SALES ASSOCIATE-C, Mariela Attending Provider Roof COMMISSION SALES ASSOCIATE-C, Malinda Morillo Attending Provider Roof COMMISSION SALES ASSOCIATE-C, Malinda Morillo Referring Provider Mary DAVIS, Dr. [...] Dr. Brenda Araujo MD Referring Provider Shahram COMMISSION SALES ASSOCIATE-C, Mariela Primary Care Provider Shahram COMMISSION SALES ASSOCIATE-C, Mariela Referring Provider Dr. Papi Hernandez MD Attending Provider Gayle DAVIS, Dr. Gutierrez Attending Provider Gayle DAVIS, Dr. Gutierrez Referring Provider Shahram COMMISSION SALES ASSOCIATE-C, Sigel Primary Care Provider Shahram COMMISSION SALES ASSOCIATE-C, Mariela Referring Provider Dr. Papi Hernandez MD Attending Provider Shahram COMMISSION SALES ASSOCIATE-C, Sigel Primary Care Provider Neville Islas DO Primary [...] Provider Coleen FARLEY, Dr. Guzmán Admit Provider [phone] Dr. Ramirez Horne DO Attending Provider Dr. Ramirez Horne DO Other Provider Dr. Darrel Galvan MD Attending Provider Unavaila ble Dr. Darrel Pearl DO Other Provider [phone] Dr. Elzbieta Sanford MD Other Provider Rashard DAVIS, Dr. Costa Other Provider Elham COMMISSION SALES ASSOCIATE-C, Antonina Other Provider Unavailabl e Roshan COMMISSION SALES ASSOCIATE-C, Nanci Other Provider Sp [place], Latanya Other Provider Mandy DAVIS, Dr. Rojo Other Provider Unavailable Shahram COMMISSION SALES ASSOCIATE-C, Mariela Attending Provider Unavailable Primary Care Provider Unavailabl e Shahram COMMISSION SALES ASSOCIATE-C, Mariela Primary Care Provider Shahram COMMISSION SALES ASSOCIATE-C, Mariela Referring Provider [phone] Roof COMMISSION SALES ASSOCIATE-C, Malinda H Attending Provider Roof COMMISSION SALES ASSOCIATE-C, Malinda H Referring Provider Rashard DAVIS, Dr. Costa Attending Provider Rashard DAVIS, Dr. Costa Referring Provider Marquise COMMISSION SALES ASSOCIATE-C, Jackelyn Attending Provider Sakshi DAVIS, Dr. Torre Attending Provider [phone] Shahram, Mariela Primary Care Unavailable Shahram, Mariela Referring Unavailable Shahram, Mariela Attending Unavailable Du Thomas Attending Unavailable Shahram, Mariela Referring Unavailable Shahram, Mariela Primary Care Unavailable Sunny Mancia Consulting Unavailable Kelvin Schrader Consulting Unavailable Kelvin Schrader Referring Unavailable Kelvin Schrader Admitting Unavailable Shahram, Mariela Primary Care Unavailable Neville Jang Attending Unavailable Shahram, Mariela Primary Care Unavailable Darrel Carpenter Consulting Unavailable Darrel Carpenter Admitting Unavailable Stevie Harrington Attending Unavailable Ramirez Horne Consulting Unavailable Ramirez Horne Admitting Unavailable Darrel Galvan Attending Unavailable Shahram, Mariela Primary Care Unavailable Darrel Pearl Consulting Unavailable Elzbieta Sanford Consulting Unavailable Julissa Wetzel Consulting Unavailable Antonina Lizarraga Consulting Unavailable Roshan COMMISSION SALES ASSOCIATE, Nanci Consulting Unavailable Masci Latanya Consulting Unavailable Roof COMMISSION SALES ASSOCIATE, Malinda Morillo Attending Unavailable Roof COMMISSION SALES ASSOCIATE, Malinda H Referring Unavailable Shahram, Mariela Primary Care Unavailable Nicho Cantor Attending Unavailable Nicho Cantor Referring Unavailable Shahram, Mariela Primary Care Unavailable Shahram, Mariela Primary Care Unavailable Papi Hernandez Attending Unavailable Papi Hernandez Referring Unavailable Shahram, Mariela Attending Unavailable Shahram, Mariela Primary Care Unavailable Roof COMMISSION SALES ASSOCIATE, Malinda H Referring Unavailable Roof COMMISSION SALES ASSOCIATE, Malinda H Attending Unavailable Shahram, Mariela Primary Care Unavailable Shahram, Mariela Primary Care Unavailable Papi Hernandez Attending Unavailable Papi Hernandez Referring Unavailable Jerry Hightower Attending Unavailable Shahram, Mariela Primary Care Unavailable Papi Hernandez Referring Unavailable Shahram, Mariela Primary Care Unavailable Papi Hernandez Attending Unavailable Shahram, Mariela Attending Unavailable Shahram, Sigel Primary Care Unavailable Shahram, Mariela Referring Unavailable Isckarus, Mansour Referring Unavailable Isckarus, Thaour Attending Unavailable Shahram, Sigel Primary Care Unavailable Isckarus, Mansour Referring Unavailable Isckarus, Thaour Attending Unavailable Shahram, Sigel Primary Care Unavailable Du Thomas Referring Unavailable Du Thomas Attending Unavailable Du Thomas Admitting Unavailable Shahram, Sigel Primary Care Unavailable Aubrey, Keo Consulting Unavailable Du Thomas Consulting Unavailable Du Thomas Referring Unavailable Du Thomas Attending Unavailable Du Thomas Admitting Unavailable Shahram, Sigel Primary Care Unavailable Aubrey, Keo Consulting Unavailable Du Thomas Consulting Unavailable Ari Silvestre Attending Unavailable Shahram, Sigel Primary Care Unavailable Darrel Carpenter Consulting Unavailable Darrel Carpenter Admitting Unavailable Stevie Harrington Referring Unavailable Stevie Harrington Consulting Unavailable Stevie Harrington Attending Unavailable Ramirez Horne Admitting Unavailable Ramirez Horne Consulting Unavailable Darrel Galvan Attending Unavailable Shahram, Sigel Primary Care Unavailable Darrel Pearl Consulting Unavailable Elzbieta Sanford Consulting Unavailable Julissa Wetzel Consulting Unavailable Antonina Lizarraga Consulting Unavailable Roshan KEARNEY, Nanci Consulting Unavailable Latanya Snowden Consulting Unavailable Darrel Galvan Consulting Unavailable Du Thomas Attending Unavailable Shahram, Sigel Primary Care Unavailable Darrel Carpenter Admitting Unavailable Darrel Carpenter Consulting Unavailable Stevie Harrington Referring Unavailable Santana Francois Consulting Unavailable Stevie Harrington Consulting Unavailable Ari Silvestre Attending Unavailable Stevie Harrington Attending Unavailable Darrel Carpenter Attending Unavailable Lorraine Melendez Attending Unavailable Shahram, Sigel Primary Care Unavailable Sunny Mancia Consulting Unavailable Sunny Mancia Attending Unavailable Gavino, Sunny Referring Unavailable MarkAdrian Consulting Unavailable MarkAdrian Attending Unavailable Shahram, Sigel Primary Care Unavailable Mark, Adrian Referring Unavailable Du Thomas Consulting Unavailable Du Thomas Attending Unavailable Shahram, Sigel Primary Care Unavailable Gavino, Sunny Referring Unavailable Juan Jose Manciak Consulting Unavailable Lucy Polanco Attending Unavailable Lucy Polanco Admitting Unavailable Lucy Polanco Consulting Unavailable Shahram, Mariela Primary Care Unavailable Polanco, Luyc Admitting Unavailable Polanco, Lucy Consulting Unavailable Shahram, Mariela Primary Care Unavailable Mike Story Attending Unavailable Mike Story Consulting Unavailable Shahram, Mariela Primary Care Unavailable Malinda Webster NP Attending Unavailable Shahram, Mariela Referring Unavailable Du Thomas Attending Unavailable Shahram, Mariela Primary Care Unavailable Shahram, Mariela Referring Unavailable Adrian Flores Attending Unavailable Shahram, Mariela Primary Care Unavailable Shahram, Mariela Referring Unavailable Shahram, Mariela Primary Care Unavailable MarkAdrian davis Attending Unavailable Mark, Adrian Referring Unavailable Shahram, Mariela Primary Care Unavailable Darrel Carpenter Admitting Unavailable Darrel Carpenter Consulting Unavailable Stevie Harrington Attending Unavailable Santana Francois Consulting Unavailable Du Thomas Admitting Unavailable Du Thomas Attending Unavailable Du Thomas Referring Unavailable Shahram, Mariela Primary Care Unavailable Keo Burgos Consulting Unavailable Shahram, Mariela Attending Unavailable Shahram, Mariela Primary Care Unavailable Shahram, Mariela Referring Unavailable Julissa Wetzel Attending Unavailable Julissa Wetzel Referring Unavailable Shahram, Mariela Primary Care Unavailable Collin, Lucy Admitting Unavailable Shahram, Mariela Primary Care Unavailable Collin, Lucy Consulting Unavailable Mike Story Attending Unavailable Du Thomas Consulting Unavailable Shahram, Mariela Primary Care Unavailable Sunny Mancia Attending Unavailable Sunny Mancia Referring Unavailable Shahram, Mariela Referring Unavailable Nicho Cantor Attending Unavailable Shahram, [...] Hernandez Attending Unavailable Du Thomas Attending Unavailable Shaharm, Mariela Referring Unavailable Shahram, Mariela Primary Care Unavailable Du Thomas Attending Unavailable Shahram, Mariela Referring Unavailable Shahram, Mariela Primary Care Unavailable Shahram, Mariela Referring Unavailable Shahram, Mariela Primary Care Unavailable Papi Hernandez Attending Unavailable Shahram, Mariela Primary Care Unavailable Sunny Mancia Attending Unavailable Shahram, Mariela Referring Unavailable Kotsonis, Kelvin F Consulting Unavailable Kotsonis, Kelvin F Attending Unavailable Kotsonis, Kelvin F Referring Unavailable Kotsonis, Kelvin F Admitting Unavailable Shahram, Mariela Primary Care Unavailable Ari Silvestre Attending Unavailable Neville Jang Consulting Unavailable Neville Jang Attending Unavailable Ramirez Horne Attending Unavailable Jackelyn Camarillo Attending Unavailable Wetzel, Julissa Referring Unavailable Wetzel, Julissa Consulting Unavailable Shahram, Mariela Primary Care Unavailable Darrel Carpenter Attending Unavailable Shahram, Mariela Primary Care Unavailable Mark Adrian Referring Unavailable MarkAdrian davis Attending Unavailable Shahram, Mariela Primary Care Unavailable Sunny Mancia Attending Unavailable BrownSunny Referring Unavailable Shahram, Mariela Primary Care Unavailable MarkArun davisl Attending Unavailable Shahram, Mareila Primary Care Unavailable Len Staton Attending Unavailabl e Ari Silvestre Attending Unavailable Shahram, Mariela Primary Care Unavailable JoStevie feng Referring Unavailable Prosper, Danette Referring Unavailable ProsperSerinad Attending Unavailable Shahram, Mariela Primary Care Unavailable Eliz Camarena Attending Unavailable Roof Malinda KEARNEY Attending Unavailable Brenda Araujo Referring Unavailable Shahram, Mariela Primary Care Unavailable Shahram, Mariela Primary Care Unavailable Papi Hernandez Attending Unavailable Shahram, Mariela Referring Unavailable Isckarus, Mansour Attending Unavailable Shahram, Mariela Primary Care Unavailable Shahram, Mariela Referring Unavailable Shahram, Mariela Primary Care Unavailable Jerry Hightower Attending Unavailable Neville Islas Attending Unavailable Shahram, Mariela Primary Care Unavailable Sakshi DAVIS, Dr. Torre Referring Provider Dr. Nicho Cantor MD Other Provider Allergies Allergy Classification Reported Allergen(s) Allergy Type Date of Onset Reaction(s) Facility (3 sources) fentaNYL Drug Allergy 5 Low blood pressure [facility] (1 source) cloNIDine Drug Allergy 4 [facility]ository (1 source) fentaNYL Drug Allergy 5 [facility] (1 source) Wheat preparation Drug Allergy 4 [facility] Medications Current Medications Medication Drug Class(es) Dates Sig (Normalized) Sig (Original) 4 ml bevacizumab 25 mg/ml injection (1 source) Vascular Endothelial Growth Factor Inhibitor Start: 01-05-2023 Avastin 25 mg/mL intravenous solution Direct Patient Administration Only - Active cloNIDine hydrochloride 0.1 mg oral tablet (18 sources) Central alpha-2 Adrenergic Agonist Start: 06-08-2024 [...] Take 1.5 tablets by mouth twice daily. (20 sources) Start: 06-10-2024 Start: 05-16-2024 End: 06-10-2024 Completed/Discontinued Medications Medication Drug Class(es) Dates Sig (Normalized) Sig (Original) acetaminophen 500 mg oral tablet (18 sources) Start: 05-01-2024 End: 05-16-2024 amLODIPine 5 [...] Discontinued 5 mg PO TWICE A DAY April 25, 2024 12:00am May 16, 2024 [...] ml enoxaparin sodium 100 mg/ml prefilled syringe (18 sources) Low Molecular Weight Heparin Start: 05-01-2024 [...] tablets; neomycin sulfate 500 mg oral tablet (18 sources) Aminoglycoside Antibacterial Start: 04-20-2024 End: 05-01-2024 [...] 04-23-2024 End: 04-25-2024 take 1 capsule by [facility] twice daily at mealtime potassium chloride ER 8 mEq capsule,extended release take 1 capsule by oral route 2 times every day with food 8 MEQ - Active simethicone 80 mg chewable t ablet (14 sources) Start: 11-07-2024 End: 11-18-2024 Start: 11-07-2024 End: 11-18-2024 take 1 tablet by mouth at bedtime Simethicone 80 mg Tablet,Chewable Discontinued 80 mg PO AFTER MEALS AND AT BEDTIME 0 November 07, 2024 12:00am November 18, 2024 1:13pm sodium chloride 1000 mg oral tablet (18 sources) Start: 05-01-2024 End: 06-08-2024 Problems Active Problems Problem Classification Problem Date Documented Date Episodic/Chronic Abdominal pain (20 sources) Right upper quadrant pain; Translations: [Right upper quadrant pain] Onset: 010 10-03-2009 Episodic Acute posthemorrhagic anemia (19 sources) Acute posthemorrhagic anemia; Translations: [Acute posthemorrhagic anemia] Onset: 024 04-23-2024 Episodic Administrative/soci al admission (20 sources) Discharge status; Translations: [Encounter for administrative examinations, unspecified] Onset: 019 07-18-2019 Episodic Blindness and vision defects (19 sources) Visual disturbance; Translations: [Unspecified visual disturbance] [...] areas concerning for metastasis or consistent with "viable neoplasm" on recent PET exam. Included in this [...] Coronary atherosclerosis; Translations: [Atherosclerotic heart disease of [place] coronary artery without angina pectoris] Onset: 019 07-23-2019 Chronic Coronary atherosclerosis and other heart disease (2 sources) Presence of aortocoronary bypass graft; Translations: [Presence of aortocoronary bypass graft] Onset: 025 Episodic Crushing injury or internal injury (18 sources) Liver hematoma; Translations: [Contusion of liver, [...] [Anemia, unspecified] 04-23-2024 Episodic Diverticulosis and diverticulitis (14 sources) Diverticular disease; Translations: [Diverticulosis of intestine, [...] Chronic Hypertension with complications and secondary hypertension (20 sources) Hypertensive emergency; Translations: [Hypertensive emergency] 08-23-2023 [...] distension (gaseous)] 01-13-2010 Episodic Other gastrointestinal disorders (18 sources) Mass of colon; Translations: [Other specified diseases of intestine] 05-10-2024 Episodic Other gastrointestinal disorders (13 sources) Hemorrhagic diarrhea ; Translations: [Diarrhea, unspecified] 11-18-2024 Episodic Other gastrointestinal disorders (13 sources) Ascites; Translations: [Other ascites] 02-11-2025 Episodic Other gastrointestinal disorders (1 source) Other ascites; Translations: [Other ascites] Onset: Episodic Other gastrointestinal disorders (1 source) Other fecal abnormalities; Translations: [Other fecal abnormalities] Onset: Episodic Other liver diseases (13 sources) Acute hepatic failure; Translations: [Acute and subacute hepatic failure without coma] 02-11-2025 Episodic Other liver diseases (2 sources) Acute and subacute hepatic failure without coma; Translations: [Acute and subacute hepatic failure without coma] Onset: Episodic Other nutritional; endocrine; and metabolic disorders (18 sources) Body mass index 25-29 - overweight; Translations: [Overweight] 04-23-2024 Episodic Other screening for suspected conditions (not mental disorders or infectious disease) (18 sources) Imaging result abnormal; Translations: [Abnormal findings on diagnostic imaging of other specified body structures] 05-31-2024 Chronic Other screening for suspected conditions (not mental disorders or infectious disease) (20 sources) Raised cardiac enzyme or marker; Translations: [Other specified abnormal findings of blood chemistry] Onset: 08-15-2023 Episodic Peripheral and visceral atherosclerosis (19 sources) Atherosclerosis of artery of lower limb; Translations: [Atherosclerosis of [place] arteries of extremities with intermittent claudication, bilateral legs] Onset: 024 04-23-2024 Chronic Comment on above: Arterial study 4: R LEONARD 0.84 with biphasic waveforms; L LEONARD 0.68 with bi/monophasic waveformsCTA 02/03/24: Residual codes; unclassified (20 sources) Tobacco use and exposure - finding; Translations: [Tobacco use] 08-16-2013 Episodic Residual codes; unclassified (20 sources) Altered mental status; Translations: [Altered mental status, unspecified] 08-15-2023 Episodic Residual codes; unclassified (1 source) Altered mental status, unspecified; Translations: [Altered mental status] 08-15-2023 Episodic Residual codes; unclassified (18 sources) Past history of procedure; Translations: [Other specified postprocedural states] 06-08-2024 Episodic Residual codes; unclassified (18 sources) History of partial resection of colon; [...] 023 Resolve d: 09-01-2022 Chronic Secondary malignancies (18 sources) Secondary malignant neoplastic disease; 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] Onset: 025 Chronic Syncope (20 sources) Syncope; Translations: [Syncope and collapse] Onset: [...] you to confirm an appointment time Unclassified (6 sources) 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 Unclassified (6 sources) Malignant neoplasm metastatic to liver Unclassified (6 sources) Malignant neoplasm of colon Unclassified (1 [...] Test Name Value Interpretation Reference Range Facility MR/PAT.ANEon 02-20-2025 MR/PAT.ANE Normal [facility] Surgery Visit Reporton 02-19 Surgery Visit Report Normal [facility] MR/PAT.ANEon 02-18-2025 MR/PAT.ANE Normal [facility] 36on 02-14-2025 36 Chart made and COMMISSION SALES ASSOCIATE ondina ckmichelle mailed Normal [facility] CBC W/Diff, Automatedon 01-29 Absolute Neut Normal 2.0-7.7 [facility] Comment on above: Result Comment: Canc elled via OM: Order cancelled - Patient discharged Performed By: #### L 500.4050, L100.0100 ####[facility] [address] [place], [address] HCT Normal 40-54 [facility] Comment on above: Result Comment: Canc elled via OM: Order cancelled - Patient discharged Performed By: #### L 500.4050, L100.0100 ####[facility] [address] [place], [address] HGB Normal 13.0-16.5 [facility] Comment on above: Result Comment: Canc elled via OM: Order cancelled - Patient discharged Performed By: #### L 500.4050, L100.0100 ####[facility] [address] [place], [address] MCH Normal 27.0-32.0 [facility] Comment on above: Result Comment: Canc elled via OM: Order cancelled - Patient discharged Performed By: #### L 500.4050, L100.0100 ####[facility] [address] [place], [address] MCHC Normal 32-36 [facility] Comment on above: Result Comment: Canc elled via OM: Order cancelled - Patient discharged Performed By: #### L 500.4050, L100.0100 ####[facility] [address] [place], [address] MCV Normal 80-94 [facility] Comment on above: Result Comment: Canc elled via OM: Order cancelled - Patient discharged Performed By: #### L 500.4050, L100.0100 ####[facility] [address] [place], [address] NEUT% Normal 47-70 [facility] Comment on above: Result Comment: Canc elled via OM: Order cancelled - Patient discharged Performed By: #### L 500.4050, L100.0100 ####[facility] [address] [place], [address] PLT Normal 150-450 [facility] Comment on above: Result Comment: Canc elled via OM: Order cancelled - Patient discharged Performed By: #### L 500.4050, L100.0100 ####[facility] [address] [place], [address] RBC Normal 4.6-6.2 [facility] Comment on above: Result Comment: Canc elled via OM: Order cancelled - Patient discharged Performed By: #### L 500.4050, L100.0100 ####[facility] [address] [place], [address] RDW CV Normal 11.6-14.6 [facility] Comment on above: Result Comment: Canc elled via OM: Order cancelled - Patient discharged Performed By: #### L 500.4050, L100.0100 ####[facility] [address] [place], [address] RDW SD Normal 35.1-43.9 [facility] Comment on above: Result Comment: Canc elled via OM: Order cancelled - Patient discharged Performed By: #### L 500.4050, L100.0100 ####[facility] [address] [place], [address] WBC Normal 4.4-11.0 [facility] Comment on above: Result Comment: Canc elled via OM: Order cancelled - Patient discharged Performed By: #### L 500.4050, L100.0100 ####[facility] [address] [place], [address] Comprehensive Metabolic Prof ilon 02-14-2025 ALB Normal 3.4-4.8 [facility] Comment on above: Result Comment: Canc elled via OM: Order cancelled - Patient discharged Performed By: #### L 500.4050, L100.0100 ####[facility] [address] [place], [address] ALK PHOS Normal 40-129 [facility] Comment on above: Result Comment: Canc elled via OM: Order cancelled - Patient discharged Performed By: #### L 500.4050, L100.0100 ####[facility] [address] [place], [address] ALT Normal <=46 [facility] Comment on above: Result Comment: Canc elled via OM: Order cancelled - Patient discharged Performed By: #### L 500.4050, L100.0100 ####[facility] [address] [place], [address] AST Normal <=37 [facility] Comment on above: Result Comment: Canc elled via OM: Order cancelled - Patient discharged Performed By: #### L 500.4050, L100.0100 ####[facility] [address] [place], [address] BUN Normal 4-19 [facility] Comment on above: Result Comment: Canc elled via OM: Order cancelled - Patient discharged Performed By: #### L 500.4050, L100.0100 ####[facility] [address] [place], [address] BUN/CRE Normal 10-20 [facility] Comment on above: Result Comment: Canc elled via OM: Order cancelled - Patient discharged Performed By: #### L 500.4050, L100.0100 ####[facility] [address] [place], [address] Calcium Normal 7.6-11.0 [facility] [facility] Comment on above: Result Comment: Canc elled via OM: Order cancelled - Patient discharged Performed By: #### L 500.4050, L100.0100 ####[facility] [address] [place], [address] CL Normal 98-108 [facility] Comment on above: Result Comment: Canc elled via OM: Order cancelled - Patient discharged Performed By: #### L 500.4050, L100.0100 ####[facility] [address] [place], [address] CO2 Normal 21.0-32.0 [facility] Comment on above: Result Comment: Canc elled via OM: Order cancelled - Patient discharged Performed By: #### L 500.4050, L100.0100 ####[facility] [address] [place], [address] CREAT,SERUM Normal 0.70-1.20 [facility] Comment on above: Result Comment: Canc elled via OM: Order cancelled - Patient discharged Performed By: #### L 500.4050, L100.0100 ####[facility] [address] [place], [address] eGFR Normal >60 [facility] Comment on above: Result Comment: Canc elled via OM: Order cancelled - Patient discharged Performed By: #### L 500.4050, L100.0100 ####[facility] [address] [place], [address] GAP Normal 5-15 [facility] Comment on above: Result Comment: Canc elled via OM: Order cancelled - Patient discharged Performed By: #### L 500.4050, L100.0100 ####[facility] [address] [place], [address] GLU Normal 70-99 [facility] Comment on above: Result Comment: Canc elled via OM: Order cancelled - Patient discharged Performed By: #### L 500.4050, L100.0100 ####[facility] [address] [place], [address] Potassium Normal 3.3-5.1 [facility] Comment on above: Result Comment: Canc elled via OM: Order cancelled - Patient discharged Performed By: #### L 500.4050, L100.0100 ####[facility] [address] [place], [address] T BILI Normal 0.00-1.30 [facility] Comment on above: Result Comment: Canc elled via OM: Order cancelled - Patient discharged Performed By: #### L 500.4050, L100.0100 ####[facility] [address] [place], [address] T PROT Normal 5.9-8.4 [facility] Comment on above: Result Comment: Canc elled via OM: Order cancelled - Patient discharged Performed By: #### L 500.4050, L100.0100 ####[facility] [address] [place], [address] Comprehensive Metabolic Profil Normal 133-145 [facility] Comment on above: Result Comment: Canc elled via OM: Order cancelled - Patient discharged Performed By: #### L 500.4050, L100.0100 ####[facility] [address] [place], [address] Paracentesis with USon 02-14 Paracentesis with US Normal [facility] CBC W/Diff, Automatedon - Absolute Neut Normal 2.0-7.7 [facility] Comment on above: Result Comment: Canc elled via OM: Order cancelled - Patient discharged Performed By: #### L 500.4050, L100.0100 ####[facility] [address] [place], [address] HCT Normal 40-54 [facility] Comment on above: Result Comment: Canc elled via OM: Order cancelled - Patient discharged Performed By: #### L 500.4050, L100.0100 ####[facility] [address] [place], [address] HGB Normal 13.0-16.5 [facility] Comment on above: Result Comment: Canc elled via OM: Order cancelled - Patient discharged Performed By: #### L 500.4050, L100.0100 ####[facility] [address] [place], [address] MCH Normal 27.0-32.0 [facility] Comment on above: Result Comment: Canc elled via OM: Order cancelled - Patient discharged Performed By: #### L 500.4050, L100.0100 ####[facility] [address] [place], [address] MCHC Normal 32-36 [facility] Comment on above: Result Comment: Canc elled via OM: Order cancelled - Patient discharged Performed By: #### L 500.4050, L100.0100 ####[facility] [address] [place], [address] MCV Normal 80-94 [facility] Comment on above: Result Comment: Canc elled via OM: Order cancelled - Patient discharged Performed By: #### L 500.4050, L100.0100 ####[facility] [address] [place], [address] NEUT% Normal 47-70 [facility] Comment on above: Result Comment: Canc elled via OM: Order cancelled - Patient discharged Performed By: #### L 500.4050, L100.0100 ####[facility] [address] [place], [address] PLT Normal 150-450 [facility] Comment on above: Result Comment: Canc elled via OM: Order cancelled - Patient discharged Performed By: #### L 500.4050, L100.0100 ####[facility] [address] [place], [address] RBC Normal 4.6-6.2 [facility] Comment on above: Result Comment: Canc elled via OM: Order cancelled - Patient discharged Performed By: #### L 500.4050, L100.0100 ####[facility] [address] [place], [address] RDW CV Normal 11.6-14.6 [facility] Comment on above: Result Comment: Canc elled via OM: Order cancelled - Patient discharged Performed By: #### L 500.4050, L100.0100 ####[facility] [address] [place], [address] RDW SD Normal 35.1-43.9 [facility] Comment on above: Result Comment: Canc elled via OM: Order cancelled - Patient discharged Performed By: #### L 500.4050, L100.0100 ####[facility] [address] [place], [address] WBC Normal 4.4-11.0 [facility] Comment on above: Result Comment: Canc elled via OM: Order cancelled - Patient discharged Performed By: #### L 500.4050, L100.0100 ####[facility] [address] [place], [address] Comprehensive Metabolic Prof ilon 02-13-2025 ALB Normal 3.4-4.8 [facility] Comment on above: Result Comment: Canc elled via OM: Order cancelled - Patient discharged Performed By: #### L 500.4050, L100.0100 ####[facility] [address] [place], [address] ALK PHOS Normal 40-129 [facility] Comment on above: Result Comment: Canc elled via OM: Order cancelled - Patient discharged Performed By: #### L 500.4050, L100.0100 ####[facility] [address] [place], [address] ALT Normal <=46 [facility] Comment on above: Result Comment: Canc elled via OM: Order cancelled - Patient discharged Performed By: #### L 500.4050, L100.0100 ####[facility] [address] [place], [address] AST Normal <=37 [facility] Comment on above: Result Comment: Canc elled via OM: Order cancelled - Patient discharged Performed By: #### L 500.4050, L100.0100 ####[facility] [address] [place], [address] BUN Normal 4-19 [facility] Comment on above: Result Comment: Canc elled via OM: Order cancelled - Patient discharged Performed By: #### L 500.4050, L100.0100 ####[facility] [address] [place], [address] BUN/CRE Normal 10-20 [facility] Comment on above: Result Comment: Canc elled via OM: Order cancelled - Patient discharged Performed By: #### L 500.4050, L100.0100 ####[facility] [address] [place], [address] Calcium Normal 7.6-11.0 [facility] Comment on above: Result Comment: Canc elled via OM: Order cancelled - Patient discharged Performed By: #### L 500.4050, L100.0100 ####[facility] [address] [place], [address] CL Normal 98-108 [facility] Comment on above: Result Comment: Canc elled via OM: Order cancelled - Patient discharged Performed By: #### L 500.4050, L100.0100 ####[facility] [address] [place], [address] CO2 Normal 21.0-32.0 [facility] Comment on above: Result Comment: Canc elled via OM: Order cancelled - Patient discharged Performed By: #### L 500.4050, L100.0100 ####[facility] [address] [place], [address] CREAT,SERUM Normal 0.70-1.20 [facility] Comment on above: Result Comment: Canc elled via OM: Order cancelled - Patient discharged Performed By: #### L 500.4050, L100.0100 ####[facility] [address] [place], [address] eGFR Normal >60 [facility] Comment on above: Result Comment: Canc elled via OM: Order cancelled - Patient discharged Performed By: #### L 500.4050, L100.0100 ####[facility] [address] [place], [address] GAP Normal 5-15 [facility] Comment on above: Result Comment: Canc elled via OM: Order cancelled - Patient discharged Performed By: #### L 500.4050, L100.0100 ####[facility] [address] [place], [address] GLU Normal 70-99 [facility] Comment on above: Result Comment: Canc elled via OM: Order cancelled - Patient discharged Performed By: #### L 500.4050, L100.0100 ####[facility] [address] [place], [address] Potassium Normal 3.3-5.1 [facility] Comment on above: Result Comment: Canc elled via OM: Order cancelled - Patient discharged Performed By: #### L 500.4050, L100.0100 ####[facility] [address] [place], [address] T BILI Normal 0.00-1.30 [facility] Comment on above: Result Comment: Canc elled via OM: Order cancelled - Patient discharged Performed By: #### L 500.4050, L100.0100 ####[facility] [address] [place], [address] T PROT Normal 5.9-8.4 [facility] Comment on above: Result Comment: Canc elled via OM: Order cancelled - Patient discharged Performed By: #### L 500.4050, L100.0100 ####[facility] [address] [place], [address] Comprehensive Metabolic Profil Normal 133-145 [facility] Comment on above: Result Comment: Canc elled via OM: Order cancelled - Patient discharged Performed By: #### L 500.4050, L100.0100 ####[facility] [address] [place], [address] Progress Noteon 02-13-2025 Progress Note Jared Segundo 79 y.o . referred by Dr. Flores [...] (HCC) 04/2024 Hypertension Severe aortic stenosis Normal [facility] Absolute lymphocyte countOrd ered By: Darrel Galvan on 02-12-2025 Lymphocytes Auto (Unsp spec) [#/Vol] 0.58 10*3/uL Low 0.83-4.51 [facility] Anion gap in Serum or Plasma Ordered By: Darrel Galvan on 02-12-2025 Anion gap [Moles/Vol] 12 mmol/L 12-13 [facility] Automated lymphocyte count a s percentage of total leukocytesOrdered By: Darrel Galvan on 02-12-2025 Lymphocytes/100 WBC Auto (Unsp spec) 9.0 % Low - [facility] BUN/creatinine ratioOrdered By: Darrel Galvan on 02-12-2025 Urea nitrogen/Creatinine [Mass ratio] 14.5 mg/mg - [facility] Basophil percentageOrdered B y: Darrel Galvan on 02-12-2025 Basophils/100 WBC (Bld) 0.3 % 0- [facility] Bilirubin, totalOrdered By: Darrel Galvan on 02-12-2025 Bilirubin [Mass/Vol] 8.06 mg/dL High 0.00-1.30 [facility] CBC W/Diff, Automatedon 01-29 Absolute Lymph 0.58 X10 3/uL Low 0.83-4.51 [facility] Comment on above: Performed By: #### L 501.2300, L500.4050, L100.0100, L501.5200 ####[facility] [address] [place], [place], [id number] Absolute Neut 4.7 X10 3/uL Normal 2.0-7.7 [facility] Comment on above: Performed By: #### L 501.2300, L500.4050, L100.0100, L501.5200 ####[facility] [address] [place], [address] Basophils/100 WBC (Bld) 0.3 % Normal 0-1 [facility] Comment on above: Performed By: #### L 501.2300, L500.4050, L100.0100, L501.5200 ####[facility] [address] [place], [address] Eosinophils/100 WBC (Bld) 1.4 % Normal 0-5 [facility] Comment on above: Performed By: #### L 501.2300, L500.4050, L100.0100, L501.5200 ####[facility] [address] [place], [address] Erythrocyte distribution width (RBC) [Ratio] 15.9 % High 11.6-14.6 [facility] Comment on above: Performed By: #### L 501.2300, L500.4050, L100.0100, L501.5200 ####[facility] [address] [place], [address] Hematocrit (Bld) [Volume fraction] 28.6 % Low 40-54 [facility] Comment on above: Performed By: #### L 501.2300, L500.4050, L100.0100, L501.5200 ####[facility] [address] [place], [address] Hemoglobin (Bld) [Mass/Vol] 10.0 g/dL Low 13.0-16.5 [facility] Comment on above: Performed By: #### L 501.2300, L500.4050, L100.0100, L501.5200 ####[facility] [address] [place], [address] IG% 0.300 Normal 0.0-0.9 [facility] Comment on above: Result Comment: IG% - Immature Granulocytes (promyelocytes, myelocytes andmetamyelocytes) > 1% indicates that a LEFT SHIFT is Present. Performed By: #### L 501.2300, L500.4050, L100.0100, L501.5200 ####[facility] [address] [place], [address] Lymphocytes/100 WBC (Bld) 9.0 % Low 19-41 [facility] Comment on above: Performed By: #### L 501.2300, L500.4050, L100.0100, L501.5200 ####[facility] [address] [place], [address] MCH (RBC) [Entitic mass] 29.1 pg Normal 27.0-32.0 [facility] Comment on above: Performed By: #### L 501.2300, L500.4050, L100.0100, L501.5200 ####[facility] [address] [place], [address] MCHC (RBC) [Mass/Vol] 35.0 g/dL Normal 32-36 [facility] Comment on above: Performed By: #### L 501.2300, L500.4050, L100.0100, L501.5200 ####[facility] [address] [place], [address] MCV (RBC) [Entitic vol] 83.1 fL Normal 80-94 [facility] Comment on above: Performed By: #### L 501.2300, L500.4050, L100.0100, L501.5200 ####[facility] [address] [place], [address] Monocytes/100 WBC (Bld) 16.6 % High 0-10 [facility] Comment on above: Performed By: #### L 501.2300, L500.4050, L100.0100, L501.5200 ####[facility] [address] [place], [address] Neutrophils/100 WBC (Bld) 72.4 % High 47-70 [facility] Comment on above: Performed By: #### L 501.2300, L500.4050, L100.0100, L501.5200 ####[facility] [address] [place], [address] Nucleated RBC (Bld) [#/Vol] 0 10*3/uL Normal 0-5 [facility] Comment on above: Performed By: #### L 501.2300, L500.4050, L100.0100, L501.5200 ####[facility] [address] [place], [address] Platelet mean volume (Bld) [Entitic vol] 10.5 fL Normal 6.2-12.0 [facility] Comment on above: Performed By: #### L 501.2300, L500.4050, L100.0100, L501.5200 ####[facility] [address] [place], [address] Platelets (Bld) [#/Vol] 232 10*3/uL Normal 150-450 [facility] Comment on above: Performed By: #### L 501.2300, L500.4050, L100.0100, L501.5200 ####[facility] [address] [place], [address] RBC (Bld) [#/Vol] 3.44 10*6/uL Low 4.6-6.2 [facility] Comment on above: Performed By: #### L 501.2300, L500.4050, L100.0100, L501.5200 ####[facility] [address] [place], [address] RDW SD 47.7 fl High 35.1-43.9 [facility] Comment on above: Performed By: #### L 501.2300, L500.4050, L100.0100, L501.5200 ####[facility] [address] [place], [address] WBC (Bld) [#/Vol] 6.4 10*3/uL Normal 4.4-11.0 [facility] Comment on above: Performed By: #### L 501.2300, L500.4050, L100.0100, L501.5200 ####[facility] [address] [place], [address] Carbon dioxide, total [Moles /volume] in Central venous bloodOrdered By: Darrel Galvan on 02-12-2025 CO2 [Moles/Vol] 20.7 mmol/L Low 21.0-32.0 [facility] Chloride assayOrdered By: Gopi Galvan on 02-12-2025 Chloride [Moles/Vol] 95 mmol/L Low 98-108 [facility] Comprehensive Metabolic Prof ilon 02-12-2025 Albumin [Mass/Vol] 3.5 g/dL Normal 3.4-4.8 [facility] Comment on above: Performed By: #### L 501.2300, L500.4050, L100.0100, L501.5200 ####[facility] [address] [place], [address] Albumin/Globulin [Mass ratio] 1.4 {ratio} Normal 0.9-2.4 [facility] Comment on above: Performed By: #### L 501.2300, L500.4050, L100.0100, L501.5200 ####[facility] [address] [place], [address] ALK PHOS 483 U/L High 40-129 [facility] Comment on above: Performed By: #### L 501.2300, L500.4050, L100.0100, L501.5200 ####[facility] [address] [place], [address] ALT [Catalytic activity/Vol] 148 U/L High <=46 [facility] Comment on above: Performed By: #### L 501.2300, L500.4050, L100.0100, L501.5200 ####[facility] [address] [place], [address] AST [Catalytic activity/Vol] 121 U/L High <=37 [facility] Comment on above: Performed By: #### L 501.2300, L500.4050, L100.0100, L501.5200 ####[facility] [address] [place], [address] Bilirubin [Mass/Vol] 8.06 mg/dL High 0.00-1.30 [facility] Comment on above: Performed By: #### L 501.2300, L500.4050, L100.0100, L501.5200 ####[facility] [address] [place], [address] BUN/CRE 14.5 RATIO Normal 10-20 [facility] Comment on above: Performed By: #### L 501.2300, L500.4050, L100.0100, L501.5200 ####[facility] [address] [place], [address] Calcium [Mass/Vol] 8.8 mg/dL Normal 7.6-11.0 [facility] Comment on above: Performed By: #### L 501.2300, L500.4050, L100.0100, L501.5200 ####[facility] [address] [place], [address] Chloride [Moles/Vol] 95 mmol/L Low 98-108 [facility] Comment on above: Performed By: #### L 501.2300, L500.4050, L100.0100, L501.5200 ####[facility] [address] [place], [address] CO2 [Moles/Vol] 20.7 mmol/L Low 21.0-32.0 [facility] Comment on above: Performed By: #### L 501.2300, L500.4050, L100.0100, L501.5200 ####[facility] [address] [place], [address] Creatinine [Mass/Vol] 0.83 mg/dL Normal 0.70-1.20 [facility] Comment on above: Result Comment: Icte rut present, Results may be affected. Performed By: #### L 501.2300, L500.4050, L100.0100, L501.5200 ####[facility] [address] [place], [address] ECRCL 66.37 ml/min Normal 50-250 [facility] Comment on above: Performed By: #### L 501.2300, L500.4050, L100.0100, L501.5200 ####[facility] [address] [place], [address] GAP 12 Normal 5-15 [facility] Comment on above: Performed By: #### L 501.2300, L500.4050, L100.0100, L501.5200 ####[facility] [address] [place], [address] GFR/1.73 sq M.predicted among non-blacks MDRD (S/P/Bld) [Vol rate/Area] 89 mL/min/{1.73_m2} Normal >60 [facility] Comment on above: Result Comment: mL/m in/1.73m2 CKD-EPI Creatinine Equation (2020) Performed By: #### L 501.2300, L500.4050, L100.0100, L501.5200 ####[facility] [address] [place], [address] Globulin (S) [Mass/Vol] 2.5 g/dL Normal 2.2-4.2 [facility] Comment on above: Performed By: #### L 501.2300, L500.4050, L100.0100, L501.5200 ####[facility] [address] [place], [address] Glucose [Mass/Vol] 116 mg/dL High 70-99 [facility] Comment on above: Performed By: #### L 501.2300, L500.4050, L100.0100, L501.5200 ####[facility] [address] [place], [address] Potassium [Moles/Vol] 3.8 mmol/L Normal 3.3-5.1 [facility] Comment on above: Performed By: #### L 501.2300, L500.4050, L100.0100, L501.5200 ####[facility] [address] [place], [address] Sodium [Moles/Vol] 127 mmol/L Low 133-145 [facility] Comment on above: Performed By: #### L 501.2300, L500.4050, L100.0100, L501.5200 ####[facility] [address] [place], [address] T PROT 6.0 g/dL Normal 5.9-8.4 [facility] Comment on above: Performed By: #### L 501.2300, L500.4050, L100.0100, L501.5200 ####[facility] [address] [place], [address] Urea nitrogen [Mass/Vol] 12 mg/dL Normal 4-19 [facility] Comment on above: Performed By: #### L 501.2300, L500.4050, L100.0100, L501.5200 ####[facility] [address] [place], [address] Eosinophil percentageOrdered By: Darrel Galvan on 02-12-2025 Eosinophils/100 WBC (Bld) 1.4 % 0-5 [facility] Erythrocyte distribution wid th ratioOrdered By: Darrel Galvan on 02-12-2025 Erythrocyte distribution width (RBC) [Ratio] 15.9 % High 11.6-14.6 [facility] Erythrocyte distribution wid th standard deviationOrdered By: Darrel Galvan on 02-12-2025 Erythrocyte distribution width (RBC) [Ratio] 47.7 fl High 35.1-43.9 [facility] Glomerular filtration rate ( GFR) estimation/1.73 sq m using serum, plasma, or whole bOrdered By: Darrel Galvan on 02-12-2025 GFR/1.73 sq M.predicted among non-blacks MDRD (S/P/Bld) [Vol rate/Area] 89 mL/min/{1.73_m2} >60 [facility] Hematocrit Auto (Bld) [Volum e fraction]Ordered By: Darrel Galvan on 02-12-2025 Hematocrit (Bld) [Volume fraction] 28.6 % Low 40-54 [facility] Hemoglobin measurementOrdere d By: Darrel Galvan on 02-12-2025 Hemoglobin (Bld) [Mass/Vol] 10.0 g/dL Low 13.0-16.5 [facility] Immature granulocytes/100 WB C Auto (Bld)Ordered By: Darrel Galvan on 02-12-2025 Immature granulocytes/100 WBC (Bld) 0.300 % 0.0-0.9 [facility] MCV (mean corpuscular volume ) determinationOrdered By: Darrel Galvan on 02-12-2025 MCV (RBC) [Entitic vol] 83.1 fL 80-94 [facility] Magnesiumon 02-12-2025 Magnesium [Mass/Vol] 1.9 mg/dL Normal 1.5-2.2 [facility] Comment on above: Performed By: #### L 501.2300, L500.4050, L100.0100, L501.5200 ####[facility] [address] [place], [address] Magnesium measurement (mass/ volume)Ordered By: Darrel Galvan on 02-12-2025 Magnesium (Unsp spec) [Mass/Vol] 1.9 mg/dL 1.5-2.2 [facility] Mean corpuscular hemoglobin (MCH) determinationOrdered By: Darrel Galvan on 02-12-2025 MCH (RBC) [Entitic mass] 29.1 pg 27.0-32.0 [facility] Monocyte percentageOrdered B y: Darrel Galvan on 02-12-2025 Monocytes/100 WBC (Bld) 16.6 % High 0-10 [facility] Neutrophil percentageOrdered By: Darrel Galvan on 02-12-2025 Neutrophils/100 WBC (Bld) 72.4 % High 47-70 [facility] No Panel InformationOrdered By: Darrel Galvan on 02-12-2025 121 U/L High <38 [facility] Phosphoruson 02-12-2025 Phosphate [Mass/Vol] 3.0 mg/dL Normal 2.7-4.5 [facility] Comment on above: Performed By: #### L 501.2300, L500.4050, L100.0100, L501.5200 ####[facility] [address] [place], [address] Platelet countOrdered By: Gopi Galvan on 02-12-2025 Platelets (Bld) [#/Vol] 232 10*3/uL 150-450 [facility] Potassium measurement (mass/ volume)Ordered By: Darrel Galvan on 02-12-2025 Potassium (Unsp spec) [Mass/Vol] 3.8 mmol/L 3.3-5.1 [facility] RBC Auto (Bld) [#/Vol]Ordere d By: Darrel Galvan on 02-12-2025 RBC (Bld) [#/Vol] 3.44 10*6/uL Low 4.6-6.2 [facility] Serum creatinine measurement (mass/volume)Ordered By: Darrel Galvan on 02-12-2025 Creatinine [Mass/Vol] 0.83 mg/dL 0.70-1.20 [facility] Serum globulin measurementOr dered By: Darrel Galvan on 02-12-2025 Globulin (S) [Mass/Vol] 2.5 g/dL 2.2-4.2 [facility] Serum glucose measurement (m ass/volume)Ordered By: Darrel Galvan on 02-12-2025 Glucose [Mass/Vol] 116 mg/dL High 70-99 [facility] Serum or plasma alanine carrion otransferase (ALT) measurementOrdered By: Darrel Galvan on 02-12-2025 ALT [Catalytic activity/Vol] 148 U/L High <47 [facility] Serum or plasma albumin shagufta urement (mass/volume)Ordered By: Darrel Galvan on 02-12-2025 Albumin [Mass/Vol] 3.5 g/dL 3.4-4.8 [facility] Serum or plasma albumin/glob ulin mass ratioOrdered By: Darrel Galvan on 02-12-2025 Albumin/Globulin [Mass ratio] 1.4 {ratio} 0.9-2.4 [facility] Serum or plasma alkaline airam sphatase measurementOrdered By: Darrel Galvan on 02-12-2025 ALP [Catalytic activity/Vol] 483 U/L High 40-129 [facility] Serum or plasma calcium shagufta urement (mass/volume)Ordered By: Darrel Galvan on 02-12-2025 Calcium [Mass/Vol] 8.8 mg/dL 7.6-11.0 [facility] Serum or plasma urea nitroge n measurement (mass/volume)Ordered By: Darrel Galvan on 02-12-2025 Urea nitrogen [Mass/Vol] 12 mg/dL 4-19 [facility] Sodium levelOrdered By: Jesse Galvan on 02-12-2025 Sodium [Moles/Vol] 127 mmol/L Low 133-145 [facility] Total proteinOrdered By: Esdras Galvan on 02-12-2025 Protein [Mass/Vol] 6.0 g/dL 5.9-8.4 [facility] White blood cell (WBC) count Ordered By: Darrel Galvan on 02-12-2025 WBC (Bld) [#/Vol] 6.4 10*3/uL 4.4-11.0 [facility] Abdomen/Pelvis W IV Cont ONL Yon 02-11-2025 Abdomen/Pelvis W IV Cont ONLY Normal [facility] CBC-Complete Blood Cnt No Di ffon 02-11-2025 Erythrocyte distribution width (RBC) [Ratio] 15.6 % High 11.6-14.6 [facility] Comment on above: Performed By: #### L 500.4050, L100.0500 ####[facility] [address] [place], [address] MCH (RBC) [Entitic mass] 29.1 pg Normal 27.0-32.0 [facility] Comment on above: Performed By: #### L 500.4050, L100.0500 ####[facility] [address] [place], [address] MCHC (RBC) [Mass/Vol] 34.5 g/dL Normal 32-36 [facility] Comment on above: Performed By: #### L 500.4050, L100.0500 ####[facility] [address] [place], [address] Platelet mean volume (Bld) [Entitic vol] 10.6 fL Normal 6.2-12.0 [facility] Comment on above: Performed By: #### L 500.4050, L100.0500 ####[facility] [address] [place], [address] Platelets (Bld) [#/Vol] 240 10*3/uL Normal 150-450 [facility] Comment on above: Performed By: #### L 500.4050, L100.0500 ####[facility] [address] [place], [address] RDW SD 47.8 fl High 35.1-43.9 [facility] Comment on above: Performed By: #### L 500.4050, L100.0500 ####[facility] [address] [place], [address] Hematocrit (Bld) [Volume fraction] 29.6 % Low 40-54 [facility] Comment on above: Performed By: #### L 500.4050, L100.0500 ####[facility] [address] [place], [address] Hemoglobin (Bld) [Mass/Vol] 10.2 g/dL Low 13.0-16.5 [facility] Comment on above: Performed By: #### L 500.4050, L100.0500 ####[facility] [address] [place], [address] MCV (RBC) [Entitic vol] 84.6 fL Normal 80-94 [facility] Comment on above: Performed By: #### L 500.4050, L100.0500 ####[facility] [address] [place], [address] RBC (Bld) [#/Vol] 3.50 10*6/uL Low 4.6-6.2 [facility] Comment on above: Performed By: #### L 500.4050, L100.0500 ####[facility] [address] [place], [address] WBC (Bld) [#/Vol] 7.2 10*3/uL Normal 4.4-11.0 [facility] Comment on above: Performed By: #### L 500.4050, L100.0500 ####[facility] [address] [place], [address] [facility] 02-11-2025 Albumin [Mass/Vol] 3.7 g/dL Normal 3.4-4.8 [facility] Comment on above: Performed By: #### L 500.4050, L100.0500 ####[facility] [address] [place], [address] Albumin/Globulin [Mass ratio] 1.5 {ratio} Normal 0.9-2.4 [facility] Comment on above: Performed By: #### L 500.4050, L100.0500 ####[facility] [address] [place], [address] ALK PHOS 501 U/L High 40-129 [facility] Comment on above: Performed By: #### L 500.4050, L100.0500 ####[facility] [address] [place], [address] ALT [Catalytic activity/Vol] 147 U/L High <=46 [facility] Comment on above: Performed By: #### L 500.4050, L100.0500 ####[facility] [address] [place], [address] AST [Catalytic activity/Vol] 126 U/L High <=37 [facility] Comment on above: Performed By: #### L 500.4050, L100.0500 ####[facility] [address] [place], [address] Bilirubin [Mass/Vol] 8.06 mg/dL High 0.00-1.30 [facility] Comment on above: Performed By: #### L 500.4050, L100.0500 ####[facility] [address] [place], [address] BUN/CRE 10.5 RATIO Normal 10-20 [facility] Comment on above: Performed By: #### L 500.4050, L100.0500 ####[facility] [address] [place], [address] Calcium [Mass/Vol] 8.9 mg/dL Normal 7.6-11.0 [facility] Comment on above: Performed By: #### L 500.4050, L100.0500 ####[facility] [address] [place], [address] Chloride [Moles/Vol] 94 mmol/L Low 98-108 [facility] Comment on above: Performed By: #### L 500.4050, L100.0500 ####[facility] [address] [place], [address] CO2 [Moles/Vol] 19.8 mmol/L Low 21.0-32.0 [facility] Comment on above: Performed By: #### L 500.4050, L100.0500 ####[facility] [address] [place], [address] Creatinine [Mass/Vol] 0.84 mg/dL Normal 0.70-1.20 [facility] Comment on above: Result Comment: Icte rut present, Results may be affected. Performed By: #### L 500.4050, L100.0500 ####[facility] [address] [place], [address] ECRCL 65.58 ml/min Normal 50-250 [facility] Comment on above: Performed By: #### L 500.4050, L100.0500 ####[facility] [address] [place], [address] GAP 12 Normal 5-15 [facility] Comment on above: Performed By: #### L 500.4050, L100.0500 ####[facility] [address] [place], [address] GFR/1.73 sq M.predicted among non-blacks MDRD (S/P/Bld) [Vol rate/Area] 88 mL/min/{1.73_m2} Normal >60 [facility] Comment on above: Result Comment: mL/m in/1.73m2 CKD-EPI Creatinine Equation (2020) Performed By: #### L 500.4050, L100.0500 ####[facility] [address] [place], [address] Globulin (S) [Mass/Vol] 2.6 g/dL Normal 2.2-4.2 [facility] Comment on above: Performed By: #### L 500.4050, L100.0500 ####[facility] [address] [place], [address] Glucose [Mass/Vol] 108 mg/dL High 70-99 [facility] Comment on above: Performed By: #### L 500.4050, L100.0500 ####[facility] [address] [place], [address] Potassium [Moles/Vol] 3.8 mmol/L Normal 3.3-5.1 [facility] Comment on above: Performed By: #### L 500.4050, L100.0500 ####[facility] [address] [place], [address] Sodium [Moles/Vol] 126 mmol/L Low 133-145 [facility] Comment on above: Performed By: #### L 500.4050, L100.0500 ####[facility] [address] [place], [address] T PROT 6.3 g/dL Normal 5.9-8.4 [facility] Comment on above: Performed By: #### L 500.4050, L100.0500 ####[facility] [address] [place], [address] Urea nitrogen [Mass/Vol] 9 mg/dL Normal 4-19 [facility] Comment on above: Performed By: #### L 500.4050, L100.0500 ####[facility] [address] [place], [address] Emergency Department Summary on 02-11-2025 Emergency Department Summary Normal [facility] H AND P Exam - Hospitaliston 02-11-2025 H&P Exam - Hospitalist Normal [facility] Paracentesis with USon 02-11 Paracentesis with US Normal [facility] Absolute lymphocyte countOrd ered By: Harrison Linares on 02-10-2025 Lymphocytes Auto (Unsp spec) [#/Vol] 0.56 10*3/uL Low 0.83-4.51 [facility] Activated partial thrombopla stin time (aPTT) in platelet poor plasma by coagulation aOrdered By: Harrison Linares on 02-10-2025 aPTT Coag (PPP) [Time] 28.2 s 24.1-36.2 [facility] Ammoniaon 02-10-2025 Ammonia (P) [Moles/Vol] 25.6 umol/L Normal 16-60 [facility] Comment on above: Performed By: #### L 501.2450, L500.2500, L503.5510, L100.0100, L300.3900, L300.4310, L500.3400 ####[facility] [address] [facility] [place], [address] Amorphous sediment detection in urine sediment by light microscopyOrdered By: Harrison Linares on 02-10-2025 Amorphous sediment LM Ql (Urine sed) 1+ [facility] Anion gap in Serum or Plasma Ordered By: Harrison Linares on 02-10-2025 Anion gap [Moles/Vol] 13 mmol/L 5-15 [facility] Automated lymphocyte count a s percentage of total leukocytesOrdered By: Harrison Linares on 02-10-2025 Lymphocytes/100 WBC Auto (Unsp spec) 7.7 % Low 19-41 [facility] BUN/creatinine ratioOrdered By: Harrison Linares on 02-10-2025 Urea nitrogen/Creatinine [Mass ratio] 11.2 mg/mg 10-20 [facility] Basic Metabolic Profile (BMP )on 02-10-2025 BUN/CRE 11.2 RATIO Normal 10-20 [facility] Comment on above: Performed By: #### L 501.2450, L500.2500, L503.5510, L100.0100, L300.3900, L300.4310, L500.3400 ####[facility] [address] [place], [address] Calcium [Mass/Vol] 8.9 mg/dL Normal 7.6-11.0 [facility] Comment on above: Performed By: #### L 501.2450, L500.2500, L503.5510, L100.0100, L300.3900, L300.4310, L500.3400 ####[facility] [address] [place], [address] Chloride [Moles/Vol] 92 mmol/L Low 98-108 [facility] Comment on above: Performed By: #### L 501.2450, L500.2500, L503.5510, L100.0100, L300.3900, L300.4310, L500.3400 ####[facility] [address] [place], [address] CO2 [Moles/Vol] 19.0 mmol/L Low 21.0-32.0 [facility] Comment on above: Performed By: #### L 501.2450, L500.2500, L503.5510, L100.0100, L300.3900, L300.4310, L500.3400 ####[facility] [address] [place], [address] Creatinine [Mass/Vol] 0.87 mg/dL Normal 0.70-1.20 [facility] Comment on above: Result Comment: Icte rut present, Results may be affected. Performed By: #### L 501.2450, L500.2500, L503.5510, L100.0100, L300.3900, L300.4310, L500.3400 ####[facility] [address] [place], [address] ECRCL 63.31 ml/min Normal 50-250 [facility] Comment on above: Performed By: #### L 501.2450, L500.2500, L503.5510, L100.0100, L300.3900, L300.4310, L500.3400 ####[facility] [address] [place], [address] GAP 13 Normal 5-15 [facility] Comment on above: Performed By: #### L 501.2450, L500.2500, L503.5510, L100.0100, L300.3900, L300.4310, L500.3400 ####[facility] [address] [place], [address] GFR/1.73 sq M.predicted among non-blacks MDRD (S/P/Bld) [Vol rate/Area] 87 mL/min/{1.73_m2} Normal >60 [facility] Comment on above: Result Comment: mL/m in/1.73m2 CKD-EPI Creatinine Equation (2020) Performed By: #### L 501.2450, L500.2500, L503.5510, L100.0100, L300.3900, L300.4310, L500.3400 ####[facility] [address] [place], [address] Glucose [Mass/Vol] 120 mg/dL High 70-99 [facility] Comment on above: Performed By: #### L 501.2450, L500.2500, L503.5510, L100.0100, L300.3900, L300.4310, L500.3400 ####[facility] [address] [place], [address] Potassium [Moles/Vol] 3.9 mmol/L Normal 3.3-5.1 [facility] Comment on above: Performed By: #### L 501.2450, L500.2500, L503.5510, L100.0100, L300.3900, L300.4310, L500.3400 ####[facility] [address] [place], [address] Sodium [Moles/Vol] 124 mmol/L Low 133-145 [facility] Comment on above: Performed By: #### L 501.2450, L500.2500, L503.5510, L100.0100, L300.3900, L300.4310, L500.3400 ####[facility] [address] [place], [address] Urea nitrogen [Mass/Vol] 10 mg/dL Normal 4-19 [facility] Comment on above: Performed By: #### L 501.2450, L500.2500, L503.5510, L100.0100, L300.3900, L300.4310, L500.3400 ####[facility] [address] [place], [place], [address] Basophil percentageOrdered B y: Harrison Linares on 02-10-2025 Basophils/100 WBC (Bld) 0.4 % 0-1 [facility] Bilirubin Test strip Ql (U)O rdered By: Harrison Linares on 02-10-2025 Bilirubin Ql (U) 3 mg/dL High Negative [facility] Bilirubin directOrdered By: Harrison Linares on 02-10-2025 Bilirubin.direct [Mass/Vol] 5.21 mg/dL High 0.00-0.30 [facility] Bilirubin, totalOrdered By: Harrison Linares on 02-10-2025 Bilirubin [Mass/Vol] 7.43 mg/dL High 0.00-1.30 [facility] CBC W/Diff, Automatedon 01-29 Absolute Lymph 0.56 X10 3/uL Low 0.83-4.51 [facility] Comment on above: Performed By: #### L 501.2450, L500.2500, L503.5510, L100.0100, L300.3900, L300.4310, L500.3400 ####[facility] [address] [place], [address] Absolute Neut 5.7 X10 3/uL Normal 2.0-7.7 [facility] Comment on above: Performed By: #### L 501.2450, L500.2500, L503.5510, L100.0100, L300.3900, L300.4310, L500.3400 ####[facility] [address] [place], [address] Basophils/100 WBC (Bld) 0.4 % Normal 0-1 [facility] Comment on above: Performed By: #### L 501.2450, L500.2500, L503.5510, L100.0100, L300.3900, L300.4310, L500.3400 ####[facility] [address] [place], [address] Eosinophils/100 WBC (Bld) 1.1 % Normal 0-5 [facility] Comment on above: Performed By: #### L 501.2450, L500.2500, L503.5510, L100.0100, L300.3900, L300.4310, L500.3400 ####[facility] [address] [place], [address] Erythrocyte distribution width (RBC) [Ratio] 15.2 % High 11.6-14.6 [facility] Comment on above: Performed By: #### L 501.2450, L500.2500, L503.5510, L100.0100, L300.3900, L300.4310, L500.3400 ####[facility] [address] [place], [address] Hematocrit (Bld) [Volume fraction] 30.3 % Low 40-54 [facility] Comment on above: Performed By: #### L 501.2450, L500.2500, L503.5510, L100.0100, L300.3900, L300.4310, L500.3400 ####[facility] [address] [place], [address] Hemoglobin (Bld) [Mass/Vol] 10.3 g/dL Low 13.0-16.5 [facility] Comment on above: Performed By: #### L 501.2450, L500.2500, L503.5510, L100.0100, L300.3900, L300.4310, L500.3400 ####[facility] [address] [place], [address] IG% 0.300 Normal 0.0-0.9 [facility] Comment on above: Result Comment: IG% - Immature Granulocytes (promyelocytes, myelocytes andmetamyelocytes) > 1% indicates that a LEFT SHIFT is Present. Performed By: #### L 501.2450, L500.2500, L503.5510, L100.0100, L300.3900, L300.4310, L500.3400 ####[facility] [address] [place], [address] Lymphocytes/100 WBC (Bld) 7.7 % Low 19-41 [facility] Comment on above: Performed By: #### L 501.2450, L500.2500, L503.5510, L100.0100, L300.3900, L300.4310, L500.3400 ####[facility] [address] [place], [address] MCH (RBC) [Entitic mass] 28.8 pg Normal 27.0-32.0 [facility] Comment on above: Performed By: #### L 501.2450, L500.2500, L503.5510, L100.0100, L300.3900, L300.4310, L500.3400 ####[facility] [address] [place], [address] MCHC (RBC) [Mass/Vol] 34.0 g/dL Normal 32-36 [facility] Comment on above: Performed By: #### L 501.2450, L500.2500, L503.5510, L100.0100, L300.3900, L300.4310, L500.3400 ####[facility] [address] [place], [address] MCV (RBC) [Entitic vol] 84.6 fL Normal 80-94 [facility] Comment on above: Performed By: #### L 501.2450, L500.2500, L503.5510, L100.0100, L300.3900, L300.4310, L500.3400 ####[facility] [address] [place], [address] Monocytes/100 WBC (Bld) 12.4 % High 0-10 [facility] Comment on above: Performed By: #### L 501.2450, L500.2500, L503.5510, L100.0100, L300.3900, L300.4310, L500.3400 ####[facility] [address] [place], [address] Neutrophils/100 WBC (Bld) 78.1 % High 47-70 [facility] Comment on above: Performed By: #### L 501.2450, L500.2500, L503.5510, L100.0100, L300.3900, L300.4310, L500.3400 ####[facility] [address] [place], [address] Nucleated RBC (Bld) [#/Vol] 0 10*3/uL Normal 0-5 [facility] Comment on above: Performed By: #### L 501.2450, L500.2500, L503.5510, L100.0100, L300.3900, L300.4310, L500.3400 ####[facility] [address] [place], [address] Platelet mean volume (Bld) [Entitic vol] 10.2 fL Normal 6.2-12.0 [facility] Comment on above: Performed By: #### L 501.2450, L500.2500, L503.5510, L100.0100, L300.3900, L300.4310, L500.3400 ####[facility] [address] [place], [address] Platelets (Bld) [#/Vol] 266 10*3/uL Normal 150-450 [facility] Comment on above: Performed By: #### L 501.2450, L500.2500, L503.5510, L100.0100, L300.3900, L300.4310, L500.3400 ####[facility] [address] [place], [address] RBC (Bld) [#/Vol] 3.58 10*6/uL Low 4.6-6.2 [facility] Comment on above: Performed By: #### L 501.2450, L500.2500, L503.5510, L100.0100, L300.3900, L300.4310, L500.3400 ####[facility] [address] [place], [address] RDW SD 47.2 fl High 35.1-43.9 [facility] Comment on above: Performed By: #### L 501.2450, L500.2500, L503.5510, L100.0100, L300.3900, L300.4310, L500.3400 ####[facility] [address] [place], [address] WBC (Bld) [#/Vol] 7.3 10*3/uL Normal 4.4-11.0 [facility] Comment on above: Performed By: #### L 501.2450, L500.2500, L503.5510, L100.0100, L300.3900, L300.4310, L500.3400 ####[facility] [address] [place], [address] Carbon dioxide, total [Moles /volume] in Central venous bloodOrdered By: Harrison Linares on 02-10-2025 CO2 [Moles/Vol] 19.0 mmol/L Low 21.0-32.0 [facility] Chest 1 View (Portable)on Chest 1 View (Portable) Normal [facility] Chloride assayOrdered By: Erica Linares on 02-10-2025 Chloride [Moles/Vol] 92 mmol/L Low 98-108 [facility] Eosinophil percentageOrdered By: Harrison Linares on 02-10-2025 Eosinophils/100 WBC (Bld) 1.1 % 0-5 [facility] Erythrocyte distribution wid th ratioOrdered By: Harrison Linares on 02-10-2025 Erythrocyte distribution width (RBC) [Ratio] 15.2 % High 11.6-14.6 [facility] Erythrocyte distribution wid th standard deviationOrdered By: Harrison Linares on 02-10-2025 Erythrocyte distribution width (RBC) [Ratio] 47.2 fl High 35.1-43.9 [facility] Glomerular filtration rate ( GFR) estimation/1.73 sq m using serum, plasma, or whole bOrdered By: Harrison Linares on 02-10-2025 GFR/1.73 sq M.predicted among non-blacks MDRD (S/P/Bld) [Vol rate/Area] 87 mL/min/{1.73_m2} >60 [facility] Hematocrit Auto (Bld) [Volum e fraction]Ordered By: Harrison Linares on 02-10-2025 Hematocrit (Bld) [Volume fraction] 30.3 % Low 40-54 [facility] Hemoglobin measurementOrdere d By: Harrison Linares on 02-10-2025 Hemoglobin (Bld) [Mass/Vol] 10.3 g/dL Low 13.0-16.5 [facility] Immature granulocytes/100 WB C Auto (Bld)Ordered By: Harrison Linares on 02-10-2025 Immature granulocytes/100 WBC (Bld) 0.300 % 0.0-0.9 [facility] Ketones Test strip Ql (U)Ord ered By: Harrison Vijay on 02-10-2025 Ketones Ql (U) Negative Negative [facility] Lipaseon 02-10-2025 Lipase [Catalytic activity/Vol] 141 U/L High 13-75 [facility] Comment on above: Result Comment: Debi vieyra note:LIPASE revised reference range effective 22.New Lipase methodology. Expected to produce lower valuesthan the previous assay method.NEW Reference Range: 13 - 75 U/L Performed By: #### L 501.2450, L500.2500, L503.5510, L100.0100, L300.3900, L300.4310, L500.3400 ####[facility] [address] [place], [address] Liver Profileon 02-10-2025 Albumin [Mass/Vol] 3.8 g/dL Normal 3.4-4.8 [facility] Comment on above: Performed By: #### L 501.2450, L500.2500, L503.5510, L100.0100, L300.3900, L300.4310, L500.3400 ####[facility] [address] [place], [address] ALK PHOS 516 U/L High 40-129 [facility] Comment on above: Performed By: #### L 501.2450, L500.2500, L503.5510, L100.0100, L300.3900, L300.4310, L500.3400 ####[facility] [address] [place], [address] ALT [Catalytic activity/Vol] 160 U/L High <=46 [facility] Comment on above: Performed By: #### L 501.2450, L500.2500, L503.5510, L100.0100, L300.3900, L300.4310, L500.3400 ####[facility] [address] [place], [address] AST [Catalytic activity/Vol] 132 U/L High <=37 [facility] Comment on above: Performed By: #### L 501.2450, L500.2500, L503.5510, L100.0100, L300.3900, L300.4310, L500.3400 ####[facility] [address] [place], [address] Bilirubin [Mass/Vol] 7.43 mg/dL High 0.00-1.30 [facility] Comment on above: Performed By: #### L 501.2450, L500.2500, L503.5510, L100.0100, L300.3900, L300.4310, L500.3400 ####[facility] [address] [place], [address] Bilirubin.direct [Mass/Vol] 5.21 mg/dL High 0.00-0.30 [facility] Comment on above: Performed By: #### L 501.2450, L500.2500, L503.5510, L100.0100, L300.3900, L300.4310, L500.3400 ####[facility] [address] [place], [address] Globulin (S) [Mass/Vol] 2.7 g/dL Normal 2.2-4.2 [facility] Comment on above: Performed By: #### L 501.2450, L500.2500, L503.5510, L100.0100, L300.3900, L300.4310, L500.3400 ####[facility] [address] [place], [address] T PROT 6.5 g/dL Normal 5.9-8.4 [facility] Comment on above: Performed By: #### L 501.2450, L500.2500, L503.5510, L100.0100, L300.3900, L300.4310, L500.3400 ####[facility] [address] [place], [place], [id number] MCV (mean corpuscular volume ) determinationOrdered By: Harrison Linares on 02-10-2025 MCV (RBC) [Entitic vol] 84.6 fL 80-94 [facility] Mean corpuscular hemoglobin (MCH) determinationOrdered By: Harrison Linares on 02-10-2025 MCH (RBC) [Entitic mass] 28.8 pg 27.0-32.0 [facility] Monocyte percentageOrdered B y: Harrison Linares on 02-10-2025 Monocytes/100 WBC (Bld) 12.4 % High 0-10 [facility] Mucus LM Ql (Urine sed)Order ed By: Harrison Linares on 02-10-2025 Mucus Ql (Urine sed) 0 SEEN /hpf [facility] Neutrophil percentageOrdered By: Harrison Linares on 02-10-2025 Neutrophils/100 WBC (Bld) 78.1 % High 47-70 [facility] Nitrite Test strip Ql (U)Ord ered By: Harrison Linares on 02-10-2025 Nitrite Ql (U) Negative Negative [facility] No Panel InformationOrdered By: Harrison Linares on 02-10-2025 132 U/L High <38 [facility] Partial Thromboplast Timeon 02-10-2025 aPTT Coag (Bld) [Time] 28.2 s Normal 24.1-36.2 [facility] Comment on above: Performed By: #### L 501.2450, L500.2500, L503.5510, L100.0100, L300.3900, L300.4310, L500.3400 ####[facility] [address] [place], [place], [id number] Platelet countOrdered By: Erica Linares on 02-10-2025 Platelets (Bld) [#/Vol] 266 10*3/uL 150-450 [facility] Potassium measurement (mass/ volume)Ordered By: Harrison Linares on 02-10-2025 Potassium (Unsp spec) [Mass/Vol] 3.9 mmol/L 3.3-5.1 [facility] Protein Test strip Ql (U)Ord ered By: Harrison Linares on 02-10-2025 Protein Ql (U) 30 mg/dl High Negative [facility] Prothrombin Time w/INRon INR Coag (PPP) [Relative time] 1.0 {INR} Normal [facility] Comment on above: Performed By: #### L 501.2450, L500.2500, L503.5510, L100.0100, L300.3900, L300.4310, L500.3400 ####[facility] [address] [place], [place], [id number] PT Coag (PPP) [Time] 13.6 s Normal 11.7-14.9 [facility] Comment on above: Performed By: #### L 501.2450, L500.2500, L503.5510, L100.0100, L300.3900, L300.4310, L500.3400 ####[facility] [address] [place], [place], [id number] Prothrombin timeOrdered By: Harrison Linares on 02-10-2025 PT Coag (PPP) [Time] 13.6 s 11.7-14.9 [facility] RBC Auto (Bld) [#/Vol]Ordere d By: Harrison Linares on 02-10-2025 RBC (Bld) [#/Vol] 3.58 10*6/uL Low 4.6-6.2 [facility] Serum creatinine measurement (mass/volume)Ordered By: Harrison Linares on 02-10-2025 Creatinine [Mass/Vol] 0.87 mg/dL 0.70-1.20 [facility] Serum globulin measurementOr dered By: Harrison Linares on 02-10-2025 Globulin (S) [Mass/Vol] 2.7 g/dL 2.2-4.2 [facility] Serum glucose measurement (m ass/volume)Ordered By: Harrison Linares on 07-13-2025 Glucose [Mass/Vol] 120 mg/dL High 70-99 [facility] Serum or plasma alanine carrion otransferase (ALT) measurementOrdered By: Harrison Linares on 02-10-2025 ALT [Catalytic activity/Vol] 160 U/L High <47 [facility] Serum or plasma albumin shagufta urement (mass/volume)Ordered By: Harrison Linares on 02-10-2025 Albumin [Mass/Vol] 3.8 g/dL 3.4-4.8 [facility] Serum or plasma alkaline airam sphatase measurementOrdered By: Harrison Linares on 02-10-2025 ALP [Catalytic activity/Vol] 516 U/L High 40-129 [facility] Serum or plasma calcium shagufta urement (mass/volume)Ordered By: Harrison Linares on 02-10-2025 Calcium [Mass/Vol] 8.9 mg/dL 7.6-11.0 [facility] Serum or plasma urea nitroge n measurement (mass/volume)Ordered By: Harrison Linares on 02-10-2025 Urea nitrogen [Mass/Vol] 10 mg/dL 4-19 [facility] Sodium levelOrdered By: Dylan Linares on 02-10-2025 Sodium [Moles/Vol] 124 mmol/L Low 133-145 [facility] Squamous epithelial cells de tection in urine sediment by light microscopyOrdered By: Harrison Linares on 02-10-2025 Epithelial cells.squamous LM Ql (Urine sed) 0-5 SEEN /hpf 0-5 [facility] Total proteinOrdered By: Dewayne Linares on 02-10-2025 Protein [Mass/Vol] 6.5 g/dL 5.9-8.4 [facility] Urinalysis, Completeon 02-10 AMORPHOUS 1+ Normal [facility] Comment on above: Order Comment: CLEAN CATCH Performed By: #### L 400.0001 ####[facility] [address] [place], [place], [id number] EPI,SQUAMOUS 0-5 SEEN Normal 0-5 [facility] Comment on above: Order Comment: CLEAN CATCH Performed By: #### L 400.0001 ####[facility] [address] [place], [address] WBC 0-5 SEEN Normal 0-5 [facility] Comment on above: Order Comment: CLEAN CATCH Performed By: #### L 400.0001 ####[facility] [address] [place], [address] RBC 0-5 SEEN Normal 0-5 [facility] Comment on above: Order Comment: CLEAN CATCH Performed By: #### L 400.0001 ####[facility] [address] [place], [address] BACTERIA 0 SEEN Normal None Seen [facility] Comment on above: Order Comment: CLEAN CATCH Performed By: #### L 400.0001 ####[facility] [address] [place], [address] Mucus Ql (Urine sed) 0 SEEN Normal [facility] Comment on above: Order Comment: CLEAN CATCH Performed By: #### L 400.0001 ####[facility] [address] [place], [address] Urine clarityOrdered By: Dewayne Linares on 02-10-2025 Clarity (U) Cloudy Clear [facility] Urine color determinationOrd ered By: Harrison Linares on 02-10-2025 Color (U) Yellow Yellow [facility] Urine glucose detectionOrder ed By: Harrison Linares on 02-10-2025 Glucose Ql (U) Normal mg/dl Normal [facility] Urine leukocyte esterase det ection by dipstickOrdered By: Harrison Linares on 02-10-2025 Leukocyte esterase Test strip Ql (U) 25 /ul High Negative [facility] Urine pHOrdered By: Harrison wren on 02-10-2025 pH (U) 6.0 [pH] 5.0 - 8.0 [facility] Urine sediment bacteria coun t by microscopy (number/high power field)Ordered By: Harrison Linares on 02-10-2025 Bacteria LM.HPF (Urine sed) [#/Area] 0 /[HPF] None Seen [facility] Urine specific gravity measu rementOrdered By: Harrison Linares on 02-10-2025 Specific gravity (U) [Rel density] 1.015 1.002-1.030 [facility] Urine urobilinogen measureme ntOrdered By: Harrison Linares on 02-10-2025 Urobilinogen Ql (U) 1 mg/dl High Normal [facility] Venous blood ammonia measure mentOrdered By: Harrison Linares on 02-10-2025 Ammonia (P) [Moles/Vol] 25.6 umol/L 16-60 [facility] White blood cell (WBC) count Ordered By: Harrison Linares on 02-10-2025 WBC (Bld) [#/Vol] 7.3 10*3/uL 4.4-11.0 [facility] White blood cell countOrdere d By: Harrison Linares on 02-10-2025 White blood cell count 0-5 SEEN /hpf 0-5 [facility] Urine Cultureon 02-08-2025 URC Culture exhibits no growth. Normal [facility] Comment on above: Performed By: #### L 400.2010, ####[facility] [address] [place], [address] Bilirubin Test strip Ql (U)O rdered By: Neville Islas on 02-07-2025 Bilirubin Ql (U) 1 mg/dL High Negative [facility] Ketones Test strip Ql (U)Ord ered By: Neville Islas on 02-07-2025 Ketones Ql (U) 5 mg/dl High Negative [facility] Nitrite Test strip Ql (U)Ord ered By: Neville Islas on 02-07-2025 Nitrite Ql (U) Negative Negative [facility] Protein Test strip Ql (U)Ord ered By: Neville Islas on 02-07-2025 Protein Ql (U) 30 mg/dl High Negative [facility] Urinalysis, Routine (Dipstic k)on 02-07-2025 BILIRUBIN URINE 1 mg/dL Abnormal Negative [facility] Comment on above: Order Comment: CLEAN CATCH Result Comment: COLO R OF URINE MAY AFFECT DIPSTICK RESULTS. Performed By: #### L 400. ####[facility] [address] [place], [address] Clarity (U) Clear Normal Clear [facility] Comment on above: Order Comment: CLEAN CATCH Performed By: #### L 400.2010, ####[facility] [address] [place], [address] Color (U) Yellow Normal Yellow [facility] Comment on above: Order Comment: CLEAN CATCH Performed By: #### L 400. ####[facility] [address] [place], [address] GLUCOSE, UR Normal Normal Normal [facility] Comment on above: Order Comment: CLEAN CATCH Performed By: #### L 400.2010, ####[facility] [address] [place], [address] KETONE UR 5 mg/dl Abnormal Negative [facility] Comment on above: Order Comment: CLEAN CATCH Performed By: #### L 400.2010, ####[facility] [address] [place], [address] LEUK ESTERASE Negative Normal Negative [facility] Comment on above: Order Comment: CLEAN CATCH Performed By: #### L 400. ####[facility] [address] [place], [address] Nitrite Ql (U) Negative Normal Negative [facility] Comment on above: Order Comment: CLEAN CATCH Performed By: #### L 400. ####[facility] [address] [place], [address] OCCULT BLOOD-UR Negative Normal Negative [facility] Comment on above: Order Comment: CLEAN CATCH Performed By: #### L 400.2010, ####[facility] [address] [place], [address] pH UR 6.0 Normal 5.0 - 8.0 [facility] Comment on above: Order Comment: CLEAN CATCH Performed By: #### L 400.2010, ####[facility] [address] [place], [address] PROT DIPSTX 30 mg/dl Abnormal Negative [facility] Comment on above: Order Comment: CLEAN CATCH Performed By: #### L 400.2010, ####[facility] [address] [place], [address] SP.GR. DIPSTX 1.015 Normal 1.002-1.030 [facility] Comment on above: Order Comment: CLEAN CATCH Performed By: #### L 400.2010, ####[facility] [address] [place], [address] UROBILI Normal Normal Normal [facility] Comment on above: Order Comment: CLEAN CATCH Performed By: #### L 400.2010, ####[facility] [address] [place], [address] Urine clarityOrdered By: Yessi Islas on 02-07-2025 Clarity (U) Clear Clear [facility] Urine color determinationOrd ered By: Neville Islas on 02-07-2025 Color (U) Yellow Yellow [facility] Urine cultureOrdered By: Yessi Islas on 02-07-2025 Bacteria identified Cx Nom (U) Culture exhibits no growth. [facility] Urine glucose detectionOrder ed By: Neville Islas on 02-07-2025 Glucose Ql (U) Normal mg/dl Normal [facility] Urine leukocyte esterase det ection by dipstickOrdered By: Neville Islas on 02-07-2025 Leukocyte esterase Test strip Ql (U) Negative Negative [facility] Urine pHOrdered By: Neville barron on 02-07-2025 pH (U) 6.0 [pH] 5.0 - 8.0 [facility] Urine specific gravity measu rementOrdered By: Neville Islas on 02-07-2025 Specific gravity (U) [Rel density] 1.015 1.002-1.030 [facility] Urine urobilinogen measureme ntOrdered By: Neville Islas on 02-07-2025 Urobilinogen Ql (U) Normal mg/dl Normal [facility] 36on 02-04-2025 36 Spoke with patient t o schedule CTA 02/19 at 11:30 am. In scheduling, patient has Medicare Part A only. Reviewed with central scheduling and patient would have to pay 50% upfront. Spoke with and confirmed patient is self pay with medicare part A. Instructed will have drum carrier arrange for financial counseling/assistance with [facility] prior to any appts/tests/procedures. Routed to Clau Wesley to arrange and call patient back [place] [address] 01-31-2025 36 Left message for pat ient to call office back to schedule CT scan on 02/19 [place] [address] 01-29-2025 36 Patient scheduled in valve clinic on 02/19 for aortic stenosis, cath and echo completed by Dr. Flores's office. BMP completed 01/08/25 in media. Pended order for CTA TAVR, [employer] to sign. Will call patient to schedule same day as OV. [facility] 36on 01-28-2025 36 Chart made and [employer] ondina herr mailed [place] [address] 01-22-2025 36 VC appt made for 01/30 09/25 I need to make chart and mail [employer] packet [facility] Oncology Visit Reporton 12-30 Oncology Visit Report Normal [facility] Absolute lymphocyte countOrd ered By: Malinda Webster on 01-08-2025 Lymphocytes Auto (Unsp spec) [#/Vol] 0.70 10*3/uL Low 0.83-4.51 [facility] Anion gap in Serum or Plasma Ordered By: Malinda Webster on 01-08-2025 Anion gap [Moles/Vol] 12 mmol/L 5-15 [facility] Automated lymphocyte count a s percentage of total leukocytesOrdered By: Malinda Webster on 01-08-2025 Lymphocytes/100 WBC Auto (Unsp spec) 12.0 % Low 19-41 [facility] BUN/creatinine ratioOrdered By: Malinda Webster on 01-08-2025 Urea nitrogen/Creatinine [Mass ratio] 12.0 mg/mg - [facility] Basic Metabolic Profile (BMP )on 01-08-2025 BUN/CRE 12.0 RATIO Normal - [facility] Comment on above: Performed By: #### L 100.0100, L500.2500 ####[facility] [address] [place], [address] Calcium [Mass/Vol] 9.3 mg/dL Normal 7.6-11.0 [facility] Comment on above: Performed By: #### L 100.0100, L500.2500 ####[facility] [address] [place], [address] Chloride [Moles/Vol] 96 mmol/L Low 98-108 [facility] Comment on above: Performed By: #### L 100.0100, L500.2500 ####[facility] [address] [place], [address] CO2 [Moles/Vol] 23.4 mmol/L Normal 21.0-32.0 [facility] Comment on above: Performed By: #### L 100.0100, L500.2500 ####[facility] [address] [place], [address] Creatinine [Mass/Vol] 0.97 mg/dL Normal 0.70-1.20 [facility] Comment on above: Performed By: #### L 100.0100, L500.2500 ####[facility] [address] [place], [address] GAP 12 Normal 5-15 [facility] Comment on above: Performed By: #### L 100.0100, L500.2500 ####[facility] [address] [place], [address] GFR/1.73 sq M.predicted among non-blacks MDRD (S/P/Bld) [Vol rate/Area] 79 mL/min/{1.73_m2} Normal >60 [facility] Comment on above: Result Comment: mL/m in/1.73m2 CKD-EPI Creatinine Equation (2020) Performed By: #### L 100.0100, L500.2500 ####[facility] [address] [place], [address] Glucose [Mass/Vol] 102 mg/dL High 70-99 [facility] Comment on above: Performed By: #### L 100.0100, L500.2500 ####[facility] [address] [place], [address] Potassium [Moles/Vol] 4.4 mmol/L Normal 3.3-5.1 [facility] Comment on above: Performed By: #### L 100.0100, L500.2500 ####[facility] [address] [place], [address] Sodium [Moles/Vol] 131 mmol/L Low 133-145 [facility] Comment on above: Performed By: #### L 100.0100, L500.2500 ####[facility] [address] [place], [address] Urea nitrogen [Mass/Vol] 12 mg/dL Normal 4-19 [facility] Comment on above: Performed By: #### L 100.0100, L500.2500 ####[facility] [address] [place], [address] Basophil percentageOrdered B y: Malinda Webster on 01-08-2025 Basophils/100 WBC (Bld) 0.2 % 0- [facility] CBC W/Diff, Automatedon 12-30 Absolute Lymph 0.70 X10 3/uL Low 0.83-4.51 [facility] Comment on above: Performed By: #### L 100.0100, L500.2500 ####[facility] [address] [place], [address] Absolute Neut 4.3 X10 3/uL Normal 2.0-7.7 [facility] Comment on above: Performed By: #### L 100.0100, L500.2500 ####[facility] [address] [place], [address] Basophils/100 WBC (Bld) 0.2 % Normal 0-1 [facility] Comment on above: Performed By: #### L 100.0100, L500.2500 ####[facility] [address] [place], [address] Eosinophils/100 WBC (Bld) 1.2 % Normal 0-5 [facility] Comment on above: Performed By: #### L 100.0100, L500.2500 ####[facility] [address] [place], [address] Erythrocyte distribution width (RBC) [Ratio] 12.7 % Normal 11.6-14.6 [facility] Comment on above: Performed By: #### L 100.0100, L500.2500 ####[facility] [address] [place], [address] Hematocrit (Bld) [Volume fraction] 32.6 % Low 40-54 [facility] Comment on above: Performed By: #### L 100.0100, L500.2500 ####[facility] [address] [place], [address] Hemoglobin (Bld) [Mass/Vol] 10.9 g/dL Low 13.0-16.5 [facility] Comment on above: Performed By: #### L 100.0100, L500.2500 ####[facility] [address] [place], [address] IG% 0.200 Normal 0.0-0.9 [facility] Comment on above: Result Comment: IG% - Immature Granulocytes (promyelocytes, myelocytes andmetamyelocytes) > 1% indicates that a LEFT SHIFT is Present. Performed By: #### L 100.0100, L500.2500 ####[facility] [address] [place], [address] Lymphocytes/100 WBC (Bld) 12.0 % Low 19-41 [facility] Comment on above: Performed By: #### L 100.0100, L500.2500 ####[facility] [address] [place], [address] MCH (RBC) [Entitic mass] 29.1 pg Normal 27.0-32.0 [facility] Comment on above: Performed By: #### L 100.0100, L500.2500 ####[facility] [address] [place], [address] MCHC (RBC) [Mass/Vol] 33.4 g/dL Normal 32-36 [facility] Comment on above: Performed By: #### L 100.0100, L500.2500 ####[facility] [address] [place], [address] MCV (RBC) [Entitic vol] 86.9 fL Normal 80-94 [facility] Comment on above: Performed By: #### L 100.0100, L500.2500 ####[facility] [address] [place], [address] Monocytes/100 WBC (Bld) 11.9 % High 0-10 [facility] Comment on above: Performed By: #### L 100.0100, L500.2500 ####[facility] [address] [place], [address] Neutrophils/100 WBC (Bld) 74.5 % High 47-70 [facility] Comment on above: Performed By: #### L 100.0100, L500.2500 ####[facility] [address] [place], [address] Nucleated RBC (Bld) [#/Vol] 0 10*3/uL Normal 0-5 [facility] Comment on above: Performed By: #### L 100.0100, L500.2500 ####[facility] [address] [place], [address] Platelet mean volume (Bld) [Entitic vol] 10.1 fL Normal 6.2-12.0 [facility] Comment on above: Performed By: #### L 100.0100, L500.2500 ####[facility] [address] [place], [address] Platelets (Bld) [#/Vol] 243 10*3/uL Normal 150-450 [facility] Comment on above: Performed By: #### L 100.0100, L500.2500 ####[facility] [address] [place], [address] RBC (Bld) [#/Vol] 3.75 10*6/uL Low 4.6-6.2 [facility] Comment on above: Performed By: #### L 100.0100, L500.2500 ####[facility] [address] [place], [address] RDW SD 40.5 fl Normal 35.1-43.9 [facility] Comment on above: Performed By: #### L 100.0100, L500.2500 ####[facility] [address] [place], [address] WBC (Bld) [#/Vol] 5.8 10*3/uL Normal 4.4-11.0 [facility] Comment on above: Performed By: #### L 100.0100, L500.2500 ####[facility] [address] [place], [address] Carbon dioxide, total [Moles /volume] in Central venous bloodOrdered By: Malinda Webster on 01-08-2025 CO2 [Moles/Vol] 23.4 mmol/L 21.0-32.0 [facility] Chloride assayOrdered By: Santa Webster on 01-08-2025 Chloride [Moles/Vol] 96 mmol/L Low 98-108 [facility] Eosinophil percentageOrdered By: Malinda Webster on 01-08-2025 Eosinophils/100 WBC (Bld) 1.2 % 0-5 [facility] Erythrocyte distribution wid th ratioOrdered By: Malinda Webster on 01-08-2025 Erythrocyte distribution width (RBC) [Ratio] 12.7 % 11.6-14.6 [facility] Erythrocyte distribution wid th standard deviationOrdered By: Malinda Webster on 01-08-2025 Erythrocyte distribution width (RBC) [Ratio] 40.5 fl 35.1-43.9 [facility] Glomerular filtration rate ( GFR) estimation/1.73 sq m using serum, plasma, or whole bOrdered By: Malinda Webster on 01-08-2025 GFR/1.73 sq M.predicted among non-blacks MDRD (S/P/Bld) [Vol rate/Area] 79 mL/min/{1.73_m2} >60 [facility] Hematocrit Auto (Bld) [Volum e fraction]Ordered By: Malinda Webster on 01-08-2025 Hematocrit (Bld) [Volume fraction] 32.6 % Low 40-54 [facility] Hemoglobin measurementOrdere d By: Malinda Webster on 01-08-2025 Hemoglobin (Bld) [Mass/Vol] 10.9 g/dL Low 13.0-16.5 [facility] Immature granulocytes/100 WB C Auto (Bld)Ordered By: Malinda Webster on 01-08-2025 Immature granulocytes/100 WBC (Bld) 0.200 % 0.0-0.9 [facility] MCV (mean corpuscular volume ) determinationOrdered By: Malinda Webster 01-08-2025 MCV (RBC) [Entitic vol] 86.9 fL 80-94 [facility] Mean corpuscular hemoglobin (MCH) determinationOrdered By: Malinda Webster 01-08-2025 MCH (RBC) [Entitic mass] 29.1 pg 27.0-32.0 [facility] Monocyte percentageOrdered B y: Malinda Webster on 01-08-2025 Monocytes/100 WBC (Bld) 11.9 % High 0-10 [facility] Neutrophil percentageOrdered By: Malinda Webster on 01-08-2025 Neutrophils/100 WBC (Bld) 74.5 % High 47-70 [facility] Platelet countOrdered By: Santa Webster on 01-08-2025 Platelets (Bld) [#/Vol] 243 10*3/uL 150-450 [facility] Potassium measurement (mass/ volume)Ordered By: Malinda Webster on 01-08-2025 Potassium (Unsp spec) [Mass/Vol] 4.4 mmol/L 3.3-5.1 [facility] RBC Auto (Bld) [#/Vol]Ordere d By: Malinda Webster on 01-08-2025 RBC (Bld) [#/Vol] 3.75 10*6/uL Low 4.6-6.2 [facility] Serum creatinine measurement (mass/volume)Ordered By: Malinda Webster on 01-08-2025 Creatinine [Mass/Vol] 0.97 mg/dL 0.70-1.20 [facility] Serum glucose measurement (m ass/volume)Ordered By: Malinda Webster on 01-08-2025 Glucose [Mass/Vol] 102 mg/dL High 70-99 [facility] Serum or plasma calcium shagufta urement (mass/volume)Ordered By: Malinda Webster on 01-08-2025 Calcium [Mass/Vol] 9.3 mg/dL 7.6-11.0 [facility] Serum or plasma urea nitroge n measurement (mass/volume)Ordered By: Malinda Webster on 01-08-2025 Urea nitrogen [Mass/Vol] 12 mg/dL 4-19 [facility] Sodium levelOrdered By: Malinda Webster on 01-08-2025 Sodium [Moles/Vol] 131 mmol/L Low 133-145 [facility] White blood cell (WBC) count Ordered By: Malinda Webster on 01-08-2025 WBC (Bld) [#/Vol] 5.8 10*3/uL 4.4-11.0 [facility] Carcinoembryonic Antigenon 0 - CEA 47.8 ng/mL High 0.0-4.7 [facility] Comment on above: Order Comment: MALINDA WEBSTER ORDERED CBCD Result Comment: Nons mokers <3.9 Smokers <5.6[employer] Electrochemiluminescence Immunoassay(ECLIA)Values obtained with different assay methods or kitscannot be used interchangeably. Results cannot beinterpreted as absolute evidence of the presence orabsence of malignant disease.Performed at: [facility] [employer] [id number] Director: Jian Paredes PhD, Phone: [phone] Performed By: #### L 3100.1460, L100.0100, L503.7225, L503.3068, L500.3359 ####[facility] [address] [place], [place], [id number] Absolute lymphocyte countOrd ered By: [facility] on 12-14-2024 Lymphocytes Auto (Unsp spec) [#/Vol] 0.68 10*3/uL Low 0.83-4.51 [facility] Anion gap in Serum or Plasma Ordered By: [facility] on 12-14-2024 Anion gap [Moles/Vol] 12 mmol/L 5-15 [facility] Automated lymphocyte count a s percentage of total leukocytesOrdered By: Brenda Araujo on 12-14-2024 Lymphocytes/100 WBC Auto (Unsp spec) 9.9 % Low 19-41 [facility] BUN/creatinine ratioOrdered By: [facility] on 12-14-2024 Urea nitrogen/Creatinine [Mass ratio] 11.3 mg/mg 10-20 [facility] Basophil percentageOrdered B y: [facility] on 12-14-2024 Basophils/100 WBC (Bld) 0.4 % 0-1 [facility] Bilirubin, totalOrdered By: [facility] on 12-14-2024 Bilirubin [Mass/Vol] 0.51 mg/dL 0.00-1.30 [facility] CBC W/Diff, Automatedon 11-29 Absolute Lymph 0.68 X10 3/uL Low 0.83-4.51 [facility] Comment on above: Order Comment: MALINDA WEBSTER ORDERED CBCD Performed By: #### L 3100.2300, L100.0100, L503.6550, L503.6030, L500.4050 ####[facility] [address] [place], [address] Absolute Neut 5.5 X10 3/uL Normal 2.0-7.7 [facility] Comment on above: Order Comment: MALINDA WEBSTER ORDERED CBCD Performed By: #### L 3100.2300, L100.0100, L503.6550, L503.6030, L500.4050 ####[facility] [address] [place], [address] Basophils/100 WBC (Bld) 0.4 % Normal 0-1 [facility] Comment on above: Order Comment: MALINDA WEBSTER ORDERED CBCD Performed By: #### L 3100.2300, L100.0100, L503.6550, L503.6030, L500.4050 ####[facility] [address] [place], [address] Eosinophils/100 WBC (Bld) 0.4 % Normal 0-5 [facility] Comment on above: Order Comment: MALINDA WEBSTER ORDERED CBCD Performed By: #### L 3100.2300, L100.0100, L503.6550, L503.6030, L500.4050 ####[facility] [address] [place], [address] Erythrocyte distribution width (RBC) [Ratio] 12.8 % Normal 11.6-14.6 [facility] Comment on above: Order Comment: MALINDA WEBSTER ORDERED CBCD Performed By: #### L 3100.2300, L100.0100, L503.6550, L503.6030, L500.4050 ####[facility] [address] [place], [address] Hematocrit (Bld) [Volume fraction] 31.4 % Low 40-54 [facility] Comment on above: Order Comment: MALINDA WEBSTER ORDERED CBCD Performed By: #### L 3100.2300, L100.0100, L503.6550, L503.6030, L500.4050 ####[facility] [address] [place], [address] Hemoglobin (Bld) [Mass/Vol] 10.8 g/dL Low 13.0-16.5 [facility] Comment on above: Order Comment: MALINDA WEBSTER ORDERED CBCD Performed By: #### L 3100.2300, L100.0100, L503.6550, L503.6030, L500.4050 ####[facility] [address] [place], [address] IG% 0.400 Normal 0.0-0.9 [facility] Comment on above: Order Comment: MALINDA WEBSTER ORDERED CBCD Result Comment: IG% - Immature Granulocytes (promyelocytes, myelocytes andmetamyelocytes) > 1% indicates that a LEFT SHIFT is Present. Performed By: #### L 3100.2300, L100.0100, L503.6550, L503.6030, L500.4050 ####[facility] [address] [place], [address] Lymphocytes/100 WBC (Bld) 9.9 % Low 19-41 [facility] Comment on above: Order Comment: MALINDA WEBSTER ORDERED CBCD Performed By: #### L 3100.2300, L100.0100, L503.6550, L503.6030, L500.4050 ####[facility] [address] [place], [address] MCH (RBC) [Entitic mass] 30.6 pg Normal 27.0-32.0 [facility] Comment on above: Order Comment: MALINDA WEBSTER ORDERED CBCD Performed By: #### L 3100.2300, L100.0100, L503.6550, L503.6030, L500.4050 ####[facility] [address] [place], [address] MCHC (RBC) [Mass/Vol] 34.4 g/dL Normal 32-36 [facility] Comment on above: Order Comment: MALINDA WEBSTER ORDERED CBCD Performed By: #### L 3100.2300, L100.0100, L503.6550, L503.6030, L500.4050 ####[facility] [address] [place], [address] MCV (RBC) [Entitic vol] 89.0 fL Normal 80-94 [facility] Comment on above: Order Comment: MALINDA WEBSTER ORDERED CBCD Performed By: #### L 3100.2300, L100.0100, L503.6550, L503.6030, L500.4050 ####[facility] [address] [place], [address] Monocytes/100 WBC (Bld) 8.6 % Normal 0-10 [facility] Comment on above: Order Comment: MALINDA WEBSTER ORDERED CBCD Performed By: #### L 3100.2300, L100.0100, L503.6550, L503.6030, L500.4050 ####[facility] [address] [place], [address] Neutrophils/100 WBC (Bld) 80.3 % High 47-70 [facility] Comment on above: Order Comment: MAILNDA WEBSTER ORDERED CBCD Performed By: #### L 3100.2300, L100.0100, L503.6550, L503.6030, L500.4050 ####[facility] [address] [place], [address] Nucleated RBC (Bld) [#/Vol] 0 10*3/uL Normal 0-5 [facility] Comment on above: Order Comment: MALINDA WEBSTER ORDERED CBCD Performed By: #### L 3100.2300, L100.0100, L503.6550, L503.6030, L500.4050 ####[facility] [address] [place], [address] Platelet mean volume (Bld) [Entitic vol] 9.6 fL Normal 6.2-12.0 [facility] Comment on above: Order Comment: MALINDA WEBSTER ORDERED CBCD Performed By: #### L 3100.2300, L100.0100, L503.6550, L503.6030, L500.4050 ####[facility] [address] [place], [address] Platelets (Bld) [#/Vol] 312 10*3/uL Normal 150-450 [facility] Comment on above: Order Comment: MALINDA WEBSTER ORDERED CBCD Performed By: #### L 3100.2300, L100.0100, L503.6550, L503.6030, L500.4050 ####[facility] [address] [place], [address] RBC (Bld) [#/Vol] 3.53 10*6/uL Low 4.6-6.2 [facility] Comment on above: Order Comment: MALINDA WEBSTER ORDERED CBCD Performed By: #### L 3100.2300, L100.0100, L503.6550, L503.6030, L500.4050 ####[facility] [address] [place], [address] RDW SD 41.6 fl Normal 35.1-43.9 [facility] Comment on above: Order Comment: MALINDA WEBSTER ORDERED CBCD Performed By: #### L 3100.2300, L100.0100, L503.6550, L503.6030, L500.4050 ####[facility] [address] [place], [address] WBC (Bld) [#/Vol] 6.9 10*3/uL Normal 4.4-11.0 [facility] Comment on above: Order Comment: MALINDA WEBSTER ORDERED CBCD Performed By: #### L 3100.2300, L100.0100, L503.6550, L503.6030, L500.4050 ####[facility] [address] [place], [address] Absolute Neut Normal 2.0-7.7 [facility] Comment on above: Result Comment: CBCD ORDER ON OTHER REQ Performed By: #### L 100.0100 ####[facility] [address] [place], [address] HCT Normal 40-54 [facility] Comment on above: Result Comment: CBCD ORDER ON OTHER REQ Performed By: #### L 100.0100 ####[facility] [address] [place], [address] HGB Normal 13.0-16.5 [facility] Comment on above: Result Comment: CBCD ORDER ON OTHER REQ Performed By: #### L 100.0100 ####[facility] [address] [place], [address] MCH Normal 27.0-32.0 [facility] Comment on above: Result Comment: CBCD ORDER ON OTHER REQ Performed By: #### L 100.0100 ####[facility] [address] [place], [address] MCHC Normal 32-36 [facility] Comment on above: Result Comment: CBCD ORDER ON OTHER REQ Performed By: #### L 100.0100 ####[facility] [address] [place], [address] MCV Normal 80-94 [facility] Comment on above: Result Comment: CBCD ORDER ON OTHER REQ Performed By: #### L 100.0100 ####[facility] [address] [place], [address] NEUT% Normal 47-70 [facility] Comment on above: Result Comment: CBCD ORDER ON OTHER REQ Performed By: #### L 100.0100 ####[facility] [address] [place], [address] PLT Normal 150-450 [facility] Comment on above: Result Comment: CBCD ORDER ON OTHER REQ Performed By: #### L 100.0100 ####[facility] [address] [place], [address] RBC Normal 4.6-6.2 [facility] Comment on above: Result Comment: CBCD ORDER ON OTHER REQ Performed By: #### L 100.0100 ####[facility] [address] [place], [address] RDW CV Normal 11.6-14.6 [facility] Comment on above: Result Comment: CBCD ORDER ON OTHER REQ Performed By: #### L 100.0100 ####[facility] [address] [place], [address] RDW SD Normal 35.1-43.9 [facility] Comment on above: Result Comment: CBCD ORDER ON OTHER REQ Performed By: #### L 100.0100 ####[facility] [address] [place], [address] WBC Normal 4.4-11.0 [facility] Comment on above: Result Comment: CBCD ORDER ON OTHER REQ Performed By: #### L 100.0100 ####[facility] [address] [place], [address] Carbon dioxide, total [Moles /volume] in Central venous bloodOrdered By: Brenda Araujo on 12-14-2024 CO2 [Moles/Vol] 23.4 mmol/L 21.0-32.0 [facility] Chest PA and Lateralon 12-14 Chest PA and Lateral Normal [facility] Chloride assayOrdered By: Kalen Araujo on 12-14-2024 Chloride [Moles/Vol] 97 mmol/L Low 98-108 [facility] Comprehensive Metabolic Prof ilon 12-14-2024 Albumin [Mass/Vol] 4.2 g/dL Normal 3.4-4.8 [facility] Comment on above: Order Comment: MALINDA WEBSTER ORDERED CBCD Performed By: #### L 3100.2300, L100.0100, L503.6550, L503.6030, L500.4050 ####[facility] [address] [place], [address] Albumin/Globulin [Mass ratio] 1.4 {ratio} Normal 0.9-2.4 [facility] Comment on above: Order Comment: MALINDA WEBSTER ORDERED CBCD Performed By: #### L 3100.2300, L100.0100, L503.6550, L503.6030, L500.4050 ####[facility] [address] [place], [address] ALK PHOS 116 U/L Normal 40-129 [facility] Comment on above: Order Comment: MALINDA WEBSTER ORDERED CBCD Performed By: #### L 3100.2300, L100.0100, L503.6550, L503.6030, L500.4050 ####[facility] [address] [place], [address] ALT [Catalytic activity/Vol] 11 U/L Normal <=46 [facility] Comment on above: Order Comment: MALINDA WEBSTER ORDERED CBCD Performed By: #### L 3100.2300, L100.0100, L503.6550, L503.6030, L500.4050 ####[facility] [address] [place], [address] AST [Catalytic activity/Vol] 24 U/L Normal <=37 [facility] Comment on above: Order Comment: MALINDA WEBSTER ORDERED CBCD Performed By: #### L 3100.2300, L100.0100, L503.6550, L503.6030, L500.4050 ####[facility] [address] [place], [address] Bilirubin [Mass/Vol] 0.51 mg/dL Normal 0.00-1.30 [facility] Comment on above: Order Comment: MALINDA WEBSTER ORDERED CBCD Performed By: #### L 3100.2300, L100.0100, L503.6550, L503.6030, L500.4050 ####[facility] [address] [place], [address] BUN/CRE 11.3 RATIO Normal 10-20 [facility] Comment on above: Order Comment: MALINDA WEBSTER ORDERED CBCD Performed By: #### L 3100.2300, L100.0100, L503.6550, L503.6030, L500.4050 ####[facility] [address] [place], [address] Calcium [Mass/Vol] 9.3 mg/dL Normal 7.6-11.0 [facility] Comment on above: Order Comment: MALINDA WEBSTER ORDERED CBCD Performed By: #### L 3100.2300, L100.0100, L503.6550, L503.6030, L500.4050 ####[facility] [address] [place], [address] Chloride [Moles/Vol] 97 mmol/L Low 98-108 [facility] Comment on above: Order Comment: MALINDA WEBSTER ORDERED CBCD Performed By: #### L 3100.2300, L100.0100, L503.6550, L503.6030, L500.4050 ####[facility] [address] [place], [address] CO2 [Moles/Vol] 23.4 mmol/L Normal 21.0-32.0 [facility] Comment on above: Order Comment: MALINDA WEBSTER ORDERED CBCD Performed By: #### L 3100.2300, L100.0100, L503.6550, L503.6030, L500.4050 ####[facility] [address] [place], [address] Creatinine [Mass/Vol] 1.00 mg/dL Normal 0.70-1.20 [facility] Comment on above: Order Comment: MALINDA WEBSTER ORDERED CBCD Performed By: #### L 3100.2300, L100.0100, L503.6550, L503.6030, L500.4050 ####[facility] [address] [place], [address] GAP 12 Normal 5-15 [facility] Comment on above: Order Comment: MALINDA WEBSTER ORDERED CBCD Performed By: #### L 3100.2300, L100.0100, L503.6550, L503.6030, L500.4050 ####[facility] [address] [place], [address] GFR/1.73 sq M.predicted among non-blacks MDRD (S/P/Bld) [Vol rate/Area] 76 mL/min/{1.73_m2} Normal >60 [facility] Comment on above: Order Comment: MALINDA WEBSTER ORDERED CBCD Result Comment: mL/m in/1.73m2 CKD-EPI Creatinine Equation (2020) Performed By: #### L 3100.2300, L100.0100, L503.6550, L503.6030, L500.4050 ####[facility] [address] [place], [address] Globulin (S) [Mass/Vol] 3.0 g/dL Normal 2.2-4.2 [facility] Comment on above: Order Comment: MALINDA WEBSTER ORDERED CBCD Performed By: #### L 3100.2300, L100.0100, L503.6550, L503.6030, L500.4050 ####[facility] [address] [place], [address] Glucose [Mass/Vol] 106 mg/dL High 70-99 [facility] Comment on above: Order Comment: MALINDA WEBSTER ORDERED CBCD Performed By: #### L 3100.2300, L100.0100, L503.6550, L503.6030, L500.4050 ####[facility] [address] [place], [address] Potassium [Moles/Vol] 3.8 mmol/L Normal 3.3-5.1 [facility] Comment on above: Order Comment: MALINDA WEBSTER ORDERED CBCD Performed By: #### L 3100.2300, L100.0100, L503.6550, L503.6030, L500.4050 ####[facility] [address] [place], [address] Sodium [Moles/Vol] 133 mmol/L Normal 133-145 [facility] Comment on above: Order Comment: MALINDA WEBSTER ORDERED CBCD Performed By: #### L 3100.2300, L100.0100, L503.6550, L503.6030, L500.4050 ####[facility] [address] [place], [address] T PROT 7.3 g/dL Normal 5.9-8.4 [facility] Comment on above: Order Comment: MALINDA WEBSTER ORDERED CBCD Performed By: #### L 3100.2300, L100.0100, L503.6550, L503.6030, L500.4050 ####[facility] [address] [place], [address] Urea nitrogen [Mass/Vol] 11 mg/dL Normal 4-19 [facility] Comment on above: Order Comment: MALINDA WEBSTER ORDERED CBCD Performed By: #### L 3100.2300, L100.0100, L503.6550, L503.6030, L500.4050 ####[facility] [address] [place], [address] Eosinophil percentageOrdered By: Brenda Araujo on 12-14-2024 Eosinophils/100 WBC (Bld) 0.4 % 0-5 [facility] Erythrocyte distribution wid th ratioOrdered By: Brenda Araujo on 12-14-2024 Erythrocyte distribution width (RBC) [Ratio] 12.8 % 11.6-14.6 [facility] Erythrocyte distribution wid th standard deviationOrdered By: Brenda Araujo on 12-14-2024 Erythrocyte distribution width (RBC) [Ratio] 41.6 fl 35.1-43.9 [facility] Ferritinon 12-14-2024 Ferritin [Mass/Vol] 49 ng/mL Normal 37-417 [facility] Comment on above: Order Comment: MALINDA WEBSTER ORDERED CBCD Performed By: #### L 3100.2300, L100.0100, L503.6550, L503.6030, L500.4050 ####[facility] [address] [place], [address] Glomerular filtration rate ( GFR) estimation/1.73 sq m using serum, plasma, or whole bOrdered By: Brenda Araujo on 12-14-2024 GFR/1.73 sq M.predicted among non-blacks MDRD (S/P/Bld) [Vol rate/Area] 76 mL/min/{1.73_m2} >60 [facility] Hematocrit Auto (Bld) [Volum e fraction]Ordered By: Brenda Araujo on 12-14-2024 Hematocrit (Bld) [Volume fraction] 31.4 % Low 40-54 [facility] Hemoglobin measurementOrdere d By: Brenda Araujo on 12-14-2024 Hemoglobin (Bld) [Mass/Vol] 10.8 g/dL Low 13.0-16.5 [facility] Immature granulocytes/100 WB C Auto (Bld)Ordered By: Brenda Araujo on 12-14-2024 Immature granulocytes/100 WBC (Bld) 0.400 % 0.0-0.9 [facility] Iron measurement (mass/mass) Ordered By: Brenda Araujo on 12-14-2024 Iron (Unsp spec) [Mass/Mass] 24 ug/dL Low 65-175 [facility] Iron+Iron Binding Capacityon 12-14-2024 Iron [Mass/Vol] 24 ug/dL Low 65-175 [facility] Comment on above: Order Comment: MALINDA WEBSTER ORDERED CBCD Performed By: #### L 3100.2300, L100.0100, L503.6550, L503.6030, L500.4050 ####[facility] [address] [place], [address] IRON SATURATION 8.0 Low 9-55 [facility] Comment on above: Order Comment: MALINDA WEBSTER ORDERED CBCD Performed By: #### L 3100.2300, L100.0100, L503.6550, L503.6030, L500.4050 ####[facility] [address] [place], [address] TIBC 314 ug/dL Normal 250-450 [facility] Comment on above: Order Comment: MALINDA WEBSTER ORDERED CBCD Performed By: #### L 3100.2300, L100.0100, L503.6550, L503.6030, L500.4050 ####[facility] [address] [place], [address] UIBC 290 ug/dL Normal 228-428 [facility] Comment on above: Order Comment: MALINDA WEBSTER ORDERED CBCD Performed By: #### L 3100.2300, L100.0100, L503.6550, L503.6030, L500.4050 ####[facility] [address] [place], [address] MCV (mean corpuscular volume ) determinationOrdered By: Brenda Araujo on 12-14-2024 MCV (RBC) [Entitic vol] 89.0 fL 80-94 [facility] Mean corpuscular hemoglobin (MCH) determinationOrdered By: Brenda Araujo on 12-14-2024 MCH (RBC) [Entitic mass] 30.6 pg 27.0-32.0 [facility] Monocyte percentageOrdered B y: Brenda Araujo on 12-14-2024 Monocytes/100 WBC (Bld) 8.6 % 0-10 [facility] Neutrophil percentageOrdered By: Brenda Araujo on 12-14-2024 Neutrophils/100 WBC (Bld) 80.3 % High 47-70 [facility] No Panel InformationOrdered By: Brenda Araujo on 12-14-2024 24 U/L <38 [facility] 290 ug/dL 228-428 [facility] Platelet countOrdered By: Kalen Araujo on 12-14-2024 Platelets (Bld) [#/Vol] 312 10*3/uL 150-450 [facility] Potassium measurement (mass/ volume)Ordered By: Bredna Araujo on 12-14-2024 Potassium (Unsp spec) [Mass/Vol] 3.8 mmol/L 3.3-5.1 [facility] RBC Auto (Bld) [#/Vol]Ordere d By: Brenda Araujo on 12-14-2024 RBC (Bld) [#/Vol] 3.53 10*6/uL Low 4.6-6.2 [facility] Serum creatinine measurement (mass/volume)Ordered By: Brenda Araujo on 12-14-2024 Creatinine [Mass/Vol] 1.00 mg/dL 0.70-1.20 [facility] Serum globulin measurementOr dered By: Brenda Araujo on 12-14-2024 Globulin (S) [Mass/Vol] 3.0 g/dL 2.2-4.2 [facility] Serum glucose measurement (m ass/volume)Ordered By: Brenda Araujo on 12-14-2024 Glucose [Mass/Vol] 106 mg/dL High 70-99 [facility] Serum or plasma alanine carrion otransferase (ALT) measurementOrdered By: Brenda Araujo on 12-14-2024 ALT [Catalytic activity/Vol] 11 U/L <47 [facility] Serum or plasma albumin shagufta urement (mass/volume)Ordered By: Brenda Araujo on 12-14-2024 Albumin [Mass/Vol] 4.2 g/dL 3.4-4.8 [facility] Serum or plasma albumin/glob ulin mass ratioOrdered By: Brenda Araujo on 12-14-2024 Albumin/Globulin [Mass ratio] 1.4 {ratio} 0.9-2.4 [facility] Serum or plasma alkaline airam sphatase measurementOrdered By: Brenda Araujo on 12-14-2024 ALP [Catalytic activity/Vol] 116 U/L 40-129 [facility] Serum or plasma calcium shagufta urement (mass/volume)Ordered By: Brenda Araujo on 12-14-2024 Calcium [Mass/Vol] 9.3 mg/dL 7.6-11.0 [facility] Serum or plasma carcinoembry onic antigen measurement (mass/volume)Ordered By: Brenda Araujo on 12-14-2024 Carcinoembryonic Ag [Mass/Vol] 47.8 ng/mL High 0.0-4.7 [facility] Serum or plasma ferritin francy surement (mass/volume)Ordered By: Brenda Araujo on 12-14-2024 Ferritin [Mass/Vol] 49 ng/mL 37-417 [facility] Serum or plasma iron saturat ion measurement (mass fraction)Ordered By: Brenda Araujo on 12-14-2024 Iron saturation [Mass fraction] 8.0 % Low 9-55 [facility] Serum or plasma urea nitroge n measurement (mass/volume)Ordered By: Brenda Araujo on 12-14-2024 Urea nitrogen [Mass/Vol] 11 mg/dL 4-19 [facility] Sodium levelOrdered By: Tha Araujo on 12-14-2024 Sodium [Moles/Vol] 133 mmol/L 133-145 [facility] Total proteinOrdered By: Rahul Araujo on 12-14-2024 Protein [Mass/Vol] 7.3 g/dL 5.9-8.4 [facility] White blood cell (WBC) count Ordered By: Brenda Araujo on 12-14-2024 WBC (Bld) [#/Vol] 6.9 10*3/uL 4.4-11.0 [facility] Surgical pathology reportOrd ered By: Teresa Martel on 12-06-2024 Surgical pathology study [facility] Absolute lymphocyte countOrd ered By: Darrel Watts on 12-05-2024 Lymphocytes Auto (Unsp spec) [#/Vol] 0.91 10*3/uL 0.83-4.51 [facility] Absolute neutrophil countOrd ered By: Darrel Watts on 12-05-2024 Neutrophils (Bld) [#/Vol] 5.6 10*3/uL 2.0-7.7 [facility] Activated partial thrombopla stin time (aPTT) in platelet poor plasma by coagulation aOrdered By: Darrel Watts on 12-05-2024 aPTT Coag (PPP) [Time] 34.0 s 24.1-36.2 [facility] Automated lymphocyte count a s percentage of total leukocytesOrdered By: Darrel Watts on 12-05-2024 Lymphocytes/100 WBC Auto (Unsp spec) 12.1 % Low 19-41 [facility] Basophil percentageOrdered B y: Darrel Watts on 12-05-2024 Basophils/100 WBC (Bld) 0.3 % 0-1 [facility] Biopsy/Inj or Needle Placeme nton 12-05-2024 Biopsy/Inj or Needle Placement Normal [facility] CBC W/Diff, Automatedon Absolute Lymph 0.91 X10 3/uL Normal 0.83-4.51 [facility] Comment on above: Performed By: #### L 300.3900, L100.0100, L300.4310 ####[facility] [address] [place], [address] Absolute Neut 5.6 X10 3/uL Normal 2.0-7.7 [facility] Comment on above: Performed By: #### L 300.3900, L100.0100, L300.4310 ####[facility] [address] [place], [address] Basophils/100 WBC (Bld) 0.3 % Normal 0-1 [facility] Comment on above: Performed By: #### L 300.3900, L100.0100, L300.4310 ####[facility] [address] [place], [address] Eosinophils/100 WBC (Bld) 2.3 % Normal 0-5 [facility] Comment on above: Performed By: #### L 300.3900, L100.0100, L300.4310 ####[facility] [address] [place], [address] Erythrocyte distribution width (RBC) [Ratio] 12.7 % Normal 11.6-14.6 [facility] Comment on above: Performed By: #### L 300.3900, L100.0100, L300.4310 ####[facility] [address] [place], [address] Hematocrit (Bld) [Volume fraction] 29.2 % Low 40-54 [facility] Comment on above: Performed By: #### L 300.3900, L100.0100, L300.4310 ####[facility] [address] [place], [address] Hemoglobin (Bld) [Mass/Vol] 10.0 g/dL Low 13.0-16.5 [facility] Comment on above: Performed By: #### L 300.3900, L100.0100, L300.4310 ####[facility] [address] [place], [address] IG% 0.300 Normal 0.0-0.9 [facility] Comment on above: Result Comment: IG% - Immature Granulocytes (promyelocytes, myelocytes andmetamyelocytes) > 1% indicates that a LEFT SHIFT is Present. Performed By: #### L 300.3900, L100.0100, L300.4310 ####[facility] [address] [place], [address] Lymphocytes/100 WBC (Bld) 12.1 % Low 19-41 [facility] Comment on above: Performed By: #### L 300.3900, L100.0100, L300.4310 ####[facility] [address] [place], [address] MCH (RBC) [Entitic mass] 30.4 pg Normal 27.0-32.0 [facility] Comment on above: Performed By: #### L 300.3900, L100.0100, L300.4310 ####[facility] [address] [place], [address] MCHC (RBC) [Mass/Vol] 34.2 g/dL Normal 32-36 [facility] Comment on above: Performed By: #### L 300.3900, L100.0100, L300.4310 ####[facility] [address] [place], [address] MCV (RBC) [Entitic vol] 88.8 fL Normal 80-94 [facility] Comment on above: Performed By: #### L 300.3900, L100.0100, L300.4310 ####[facility] [address] [place], [address] Monocytes/100 WBC (Bld) 10.8 % High 0-10 [facility] Comment on above: Performed By: #### L 300.3900, L100.0100, L300.4310 ####[facility] [address] [place], [address] Neutrophils/100 WBC (Bld) 74.2 % High 47-70 [facility] Comment on above: Performed By: #### L 300.3900, L100.0100, L300.4310 ####[facility] [address] [place], [address] Nucleated RBC (Bld) [#/Vol] 0 10*3/uL Normal 0-5 [facility] Comment on above: Performed By: #### L 300.3900, L100.0100, L300.4310 ####[facility] [address] [place], [address] Platelet mean volume (Bld) [Entitic vol] 8.8 fL Normal 6.2-12.0 [facility] Comment on above: Performed By: #### L 300.3900, L100.0100, L300.4310 ####[facility] [address] [place], [address] Platelets (Bld) [#/Vol] 334 10*3/uL Normal 150-450 [facility] Comment on above: Performed By: #### L 300.3900, L100.0100, L300.4310 ####[facility] [address] [place], [address] RBC (Bld) [#/Vol] 3.29 10*6/uL Low 4.6-6.2 [facility] Comment on above: Performed By: #### L 300.3900, L100.0100, L300.4310 ####[facility] [address] [place], [address] RDW SD 41.4 fl Normal 35.1-43.9 [facility] Comment on above: Performed By: #### L 300.3900, L100.0100, L300.4310 ####[facility] [address] [place], [address] WBC (Bld) [#/Vol] 7.5 10*3/uL Normal 4.4-11.0 [facility] Comment on above: Performed By: #### L 300.3900, L100.0100, L300.4310 ####[facility] [address] [place], [address] Eosinophil percentageOrdered By: Darrel Watts on 12-05-2024 Eosinophils/100 WBC (Bld) 2.3 % 0-5 [facility] Erythrocyte distribution wid th ratioOrdered By: Darrel Watts on 12-05-2024 Erythrocyte distribution width (RBC) [Ratio] 12.7 % 11.6-14.6 [facility] Erythrocyte distribution wid th standard deviationOrdered By: Darrel Watts on 12-05-2024 Erythrocyte distribution width (RBC) [Ratio] 41.4 fl 35.1-43.9 [facility] Hematocrit Auto (Bld) [Volum e fraction]Ordered By: Darrel Watts on 12-05-2024 Hematocrit (Bld) [Volume fraction] 29.2 % Low 40-54 [facility] Hemoglobin measurementOrdere d By: Darrel Watts on 12-05-2024 Hemoglobin (Bld) [Mass/Vol] 10.0 g/dL Low 13.0-16.5 [facility] Immature granulocytes/100 WB C Auto (Bld)Ordered By: Darrel Watts on 12-05-2024 Immature granulocytes/100 WBC (Bld) 0.300 % 0.0-0.9 [facility] Comment on above: IG% - Immature Granu locytes (promyelocytes, myelocytes and metamyelocytes) > 1% indicates that a LEFT SHIFT is Present. Immunohistochemical Stainson 12-05-2024 Immunohistochemical Stains Normal [facility] Comment on above: Performed By: #### P IMUT ####[facility] [address] [place], [address] International normalized rat io (INR) calculationOrdered By: Darrel Watts on 12-05-2024 INR Coag (Bld) [Relative time] 1.1 {INR} [facility] MCV (mean corpuscular volume ) determinationOrdered By: Darrel Watts on 12-05-2024 MCV (RBC) [Entitic vol] 88.8 fL 80-94 [facility] Mean corpuscular hemoglobin (MCH) determinationOrdered By: Darrel Watts on 12-05-2024 MCH (RBC) [Entitic mass] 30.4 pg 27.0-32.0 [facility] Mean corpuscular hemoglobin concentration (MCHC) determinationOrdered By: Darrel Watts on 12-05-2024 MCHC (RBC) [Mass/Vol] 34.2 g/dL 32-36 [facility] Mean platelet volume determi nationOrdered By: Darrel Watts on 12-05-2024 Platelet mean volume (Bld) [Entitic vol] 8.8 fL 6.2-12.0 [facility] Monocyte percentageOrdered B y: Darrel Watts on 12-05-2024 Monocytes/100 WBC (Bld) 10.8 % High 0-10 [facility] Neutrophil percentageOrdered By: Darrel Watts on 12-05-2024 Neutrophils/100 WBC (Bld) 74.2 % High 47-70 [facility] Nucleated red blood cell per centageOrdered By: Darrel Watts on 12-05-2024 Nucleated RBC/100 WBC (Bld) [Ratio] 0 % 0-5 [facility] Partial Thromboplast Timeon 12-05-2024 aPTT Coag (Bld) [Time] 34.0 s Normal 24.1-36.2 [facility] Comment on above: Performed By: #### L 300.3900, L100.0100, L300.4310 ####[facility] [address] [place], [address] Platelet countOrdered By: Gopi Watts on 12-05-2024 Platelets (Bld) [#/Vol] 334 10*3/uL 150-450 [facility] Prothrombin Time w/INRon INR Coag (PPP) [Relative time] 1.1 {INR} Normal [facility] Comment on above: Performed By: #### L 300.3900, L100.0100, L300.4310 ####[facility] [address] [place], [address] PT Coag (PPP) [Time] 14.0 s Normal 11.7-14.9 [facility] Comment on above: Performed By: #### L 300.3900, L100.0100, L300.4310 ####[facility] [address] [place], [address] Prothrombin timeOrdered By: Darrel Watts on 12-05-2024 PT Coag (PPP) [Time] 14.0 s 11.7-14.9 [facility] RBC Auto (Bld) [#/Vol]Ordere d By: Darrel Watts on 12-05-2024 RBC (Bld) [#/Vol] 3.29 10*6/uL Low 4.6-6.2 [facility] White blood cell (WBC) count Ordered By: Darrel Watts on 12-05-2024 WBC (Bld) [#/Vol] 7.5 10*3/uL 4.4-11.0 [facility] Gastroenterology Visit Repor ton 12-04-2024 Gastroenterology Visit Report Normal [facility] Chest WITH Contraston 2024 Chest WITH Contrast Normal [facility] Echo Complete W/ Contraston 11-28-2024 Echo Complete W/ Contrast Normal [facility] Oncology Visit Reporton 11-01 Oncology Visit Report Normal [facility] Absolute lymphocyte countOrd ered By: Neville Jang on 11-20-2024 Lymphocytes Auto (Unsp spec) [#/Vol] 1.21 10*3/uL 0.83-4.51 [facility] Absolute neutrophil countOrd ered By: Neville Jang on 11-20-2024 Neutrophils (Bld) [#/Vol] 7.6 10*3/uL 2.0-7.7 [facility] Automated lymphocyte count a s percentage of total leukocytesOrdered By: Neville Jang on 11-20-2024 Lymphocytes/100 WBC Auto (Unsp spec) 12.0 % Low 19-41 [facility] Basophil percentageOrdered B y: Neville Jang on 11-20-2024 Basophils/100 WBC (Bld) 0.3 % 0-1 [facility] CBC W/Diff, Automatedon 10-31 Absolute Lymph 1.21 X10 3/uL Normal 0.83-4.51 [facility] Comment on above: Performed By: #### L 100.0100 ####[facility] [address] [place], [address] Absolute Neut 7.6 X10 3/uL Normal 2.0-7.7 [facility] Comment on above: Performed By: #### L 100.0100 ####[facility] [address] [place], [address] Basophils/100 WBC (Bld) 0.3 % Normal 0-1 [facility] Comment on above: Performed By: #### L 100.0100 ####[facility] [address] [place], [address] Eosinophils/100 WBC (Bld) 1.7 % Normal 0-5 [facility] Comment on above: Performed By: #### L 100.0100 ####[facility] [address] [place], [address] Erythrocyte distribution width (RBC) [Ratio] 12.6 % Normal 11.6-14.6 [facility] Comment on above: Performed By: #### L 100.0100 ####[facility] [address] [place], [address] Hematocrit (Bld) [Volume fraction] 29.4 % Low 40-54 [facility] Comment on above: Performed By: #### L 100.0100 ####[facility] [address] [place], [address] Hemoglobin (Bld) [Mass/Vol] 10.3 g/dL Low 13.0-16.5 [facility] Comment on above: Performed By: #### L 100.0100 ####[facility] [address] [place], [address] IG% 0.300 Normal 0.0-0.9 [facility] Comment on above: Result Comment: IG% - Immature Granulocytes (promyelocytes, myelocytes andmetamyelocytes) > 1% indicates that a LEFT SHIFT is Present. Performed By: #### L 100.0100 ####[facility] [address] [place], [address] Lymphocytes/100 WBC (Bld) 12.0 % Low 19-41 [facility] Comment on above: Performed By: #### L 100.0100 ####[facility] [address] [place], [address] MCH (RBC) [Entitic mass] 30.8 pg Normal 27.0-32.0 [facility] Comment on above: Performed By: #### L 100.0100 ####[facility] [address] [place], [address] MCHC (RBC) [Mass/Vol] 35.0 g/dL Normal 32-36 [facility] Comment on above: Performed By: #### L 100.0100 ####[facility] [address] [place], [address] MCV (RBC) [Entitic vol] 88.0 fL Normal 80-94 [facility] Comment on above: Performed By: #### L 100.0100 ####[facility] [address] [place], [address] Monocytes/100 WBC (Bld) 10.2 % High 0-10 [facility] Comment on above: Performed By: #### L 100.0100 ####[facility] [address] [place], [address] Neutrophils/100 WBC (Bld) 75.5 % High 47-70 [facility] Comment on above: Performed By: #### L 100.0100 ####[facility] [address] [place], [address] Nucleated RBC (Bld) [#/Vol] 0 10*3/uL Normal 0-5 [facility] Comment on above: Performed By: #### L 100.0100 ####[facility] [address] [place], [address] Platelet mean volume (Bld) [Entitic vol] 8.7 fL Normal 6.2-12.0 [facility] Comment on above: Performed By: #### L 100.0100 ####[facility] [address] [place], [address] Platelets (Bld) [#/Vol] 314 10*3/uL Normal 150-450 [facility] Comment on above: Performed By: #### L 100.0100 ####[facility] [address] [place], [address] RBC (Bld) [#/Vol] 3.34 10*6/uL Low 4.6-6.2 [facility] Comment on above: Performed By: #### L 100.0100 ####[facility] [address] [place], [address] RDW SD 40.2 fl Normal 35.1-43.9 [facility] Comment on above: Performed By: #### L 100.0100 ####[facility] [address] [place], [address] WBC (Bld) [#/Vol] 10.1 10*3/uL Normal 4.4-11.0 [facility] Comment on above: Performed By: #### L 100.0100 ####[facility] [address] [place], [address] Colonoscopy Reporton 025 Colonoscopy Report Normal [facility] Discharge Instructionon 10-31 Discharge Instruction Normal [facility] Eosinophil percentageOrdered By: Neville Jang on 11-20-2024 Eosinophils/100 WBC (Bld) 1.7 % 0-5 [facility] Erythrocyte distribution wid th (RBC) [Ratio]Ordered By: Neville Jang on 11-20-2024 Erythrocyte distribution width (RBC) [Entitic vol] 40.2 fL 35.1-43.9 [facility] Erythrocyte distribution wid th ratioOrdered By: Neville Jang on 11-20-2024 Erythrocyte distribution width (RBC) [Ratio] 12.6 % 11.6-14.6 [facility] Erythrocyte distribution wid th standard deviationOrdered By: Neville Jang on 11-20-2024 Erythrocyte distribution width (RBC) [Ratio] 40.2 fl 35.1-43.9 [facility] Hematocrit Auto (Bld) [Volum e fraction]Ordered By: Neville Jang on 11-20-2024 Hematocrit (Bld) [Volume fraction] 29.4 % Low 40-54 [facility] Hemoglobin measurementOrdere d By: Neville Jang on 11-20-2024 Hemoglobin (Bld) [Mass/Vol] 10.3 g/dL Low 13.0-16.5 [facility] Immature granulocytes/100 WB C Auto (Bld)Ordered By: Neville Jang on 11-20-2024 Immature granulocytes/100 WBC (Bld) 0.300 % 0.0-0.9 [facility] Comment on above: IG% - Immature Granu locytes (promyelocytes, myelocytes and metamyelocytes) > 1% indicates that a LEFT SHIFT is Present. Lymphocytes Auto (Unsp spec) [#/Vol]Ordered By: Neville Jang on 11-20-2024 Lymphocytes (Bld) [#/Vol] 1.21 10*3/uL 0.83-4.51 [facility] Lymphocytes/100 WBC Auto (Un sp spec)Ordered By: Neville Jang on 11-20-2024 Lymphocytes/100 WBC (Bld) 12.0 % Low 19-41 [facility] MCV (mean corpuscular volume ) determinationOrdered By: Neville Jang on 11-20-2024 MCV (RBC) [Entitic vol] 88.0 fL 80-94 [facility] MR/[id number] 11-20-2024 MR/POSTOPAN2 Normal [facility] Mean corpuscular hemoglobin (MCH) determinationOrdered By: Neville Jang on 11-20-2024 MCH (RBC) [Entitic mass] 30.8 pg 27.0-32.0 [facility] Mean corpuscular hemoglobin concentration (MCHC) determinationOrdered By: Neville Jang on 11-20-2024 MCHC (RBC) [Mass/Vol] 35.0 g/dL 32-36 [facility] Mean platelet volume determi nationOrdered By: Neville Jang on 11-20-2024 Platelet mean volume (Bld) [Entitic vol] 8.7 fL 6.2-12.0 [facility] Monocyte percentageOrdered B y: Neville Jang on 11-20-2024 Monocytes/100 WBC (Bld) 10.2 % High 0-10 [facility] Neutrophil percentageOrdered By: Neville Jang on 11-20-2024 Neutrophils/100 WBC (Bld) 75.5 % High 47-70 [facility] Nucleated red blood cell per centageOrdered By: Neville Jang on 11-20-2024 Nucleated RBC/100 WBC (Bld) [Ratio] 0 % 0-5 [facility] Platelet countOrdered By: Kalen Jang on 11-20-2024 Platelets (Bld) [#/Vol] 314 10*3/uL 150-450 [facility] RBC Auto (Bld) [#/Vol]Ordere d By: Neville Jang on 11-20-2024 RBC (Bld) [#/Vol] 3.34 10*6/uL Low 4.6-6.2 [facility] White blood cell (WBC) count Ordered By: Neville Jang on 11-20-2024 WBC (Bld) [#/Vol] 10.1 10*3/uL 4.4-11.0 [facility] Anion gap in Serum or Plasma Ordered By: Kelvin Schrader on 11-19-2024 Anion gap [Moles/Vol] 12 mmol/L 5- [facility] BUN/creatinine ratioOrdered By: Kelvin Schrader on 11-19-2024 Urea nitrogen/Creatinine [Mass ratio] 10.4 mg/mg - [facility] Basic Metabolic Profile (BMP )on 11-19-2024 BUN/CRE 10.4 RATIO Normal - [facility] Comment on above: Performed By: #### L 100.0100, L500.2500 ####[facility] [address] [place], [address] Calcium [Mass/Vol] 8.8 mg/dL Normal 7.6-11.0 [facility] Comment on above: Performed By: #### L 100.0100, L500.2500 ####[facility] [address] [place], [address] Chloride [Moles/Vol] 99 mmol/L Normal 98-108 [facility] Comment on above: Performed By: #### L 100.0100, L500.2500 ####[facility] [address] [place], [address] CO2 [Moles/Vol] 21.0 mmol/L Normal 21.0-32.0 [facility] Comment on above: Performed By: #### L 100.0100, L500.2500 ####[facility] [address] [place], [address] Creatinine [Mass/Vol] 0.95 mg/dL Normal 0.70-1.20 [facility] Comment on above: Performed By: #### L 100.0100, L500.2500 ####[facility] [address] [place], [address] ECRCL 57.98 ml/min Normal 50-250 [facility] Comment on above: Performed By: #### L 100.0100, L500.2500 ####[facility] [address] [place], [address] GAP 12 Normal 5-15 [facility] Comment on above: Performed By: #### L 100.0100, L500.2500 ####[facility] [address] [place], [address] GFR/1.73 sq M.predicted among non-blacks MDRD (S/P/Bld) [Vol rate/Area] 81 mL/min/{1.73_m2} Normal >60 [facility] Comment on above: Result Comment: mL/m in/1.73m2 CKD-EPI Creatinine Equation (2020) Performed By: #### L 100.0100, L500.2500 ####[facility] [address] [place], [address] Glucose [Mass/Vol] 99 mg/dL Normal 70-99 [facility] Comment on above: Performed By: #### L 100.0100, L500.2500 ####[facility] [address] [place], [address] Potassium [Moles/Vol] 4.0 mmol/L Normal 3.3-5.1 [facility] Comment on above: Performed By: #### L 100.0100, L500.2500 ####[facility] [address] [place], [address] Sodium [Moles/Vol] 132 mmol/L Low 133-145 [facility] Comment on above: Performed By: #### L 100.0100, L500.2500 ####[facility] [address] [place], [address] Urea nitrogen [Mass/Vol] 10 mg/dL Normal 4-19 [facility] Comment on above: Performed By: #### L 100.0100, L500.2500 ####[facility] [address] [place], [address] CBC W/Diff, Automatedon 04-2 Absolute Lymph 1.20 X10 3/uL Normal 0.83-4.51 [facility] Comment on above: Performed By: #### L 100.0100, L500.2500 ####[facility] [address] [place], [address] Absolute Neut 6.2 X10 3/uL Normal 2.0-7.7 [facility] Comment on above: Performed By: #### L 100.0100, L500.2500 ####[facility] [address] [place], [address] Basophils/100 WBC (Bld) 0.2 % Normal 0-1 [facility] Comment on above: Performed By: #### L 100.0100, L500.2500 ####[facility] [address] [place], [address] Eosinophils/100 WBC (Bld) 1.9 % Normal 0-5 [facility] Comment on above: Performed By: #### L 100.0100, L500.2500 ####[facility] [address] [place], [address] Erythrocyte distribution width (RBC) [Ratio] 12.5 % Normal 11.6-14.6 [facility] Comment on above: Performed By: #### L 100.0100, L500.2500 ####[facility] [address] [place], [address] Hematocrit (Bld) [Volume fraction] 32.0 % Low 40-54 [facility] Comment on above: Performed By: #### L 100.0100, L500.2500 ####[facility] [address] [place], [address] Hemoglobin (Bld) [Mass/Vol] 10.9 g/dL Low 13.0-16.5 [facility] Comment on above: Performed By: #### L 100.0100, L500.2500 ####[facility] [address] [place], [address] IG% 0.400 Normal 0.0-0.9 [facility] Comment on above: Result Comment: IG% - Immature Granulocytes (promyelocytes, myelocytes andmetamyelocytes) > 1% indicates that a LEFT SHIFT is Present. Performed By: #### L 100.0100, L500.2500 ####[facility] [address] [place], [address] Lymphocytes/100 WBC (Bld) 14.2 % Low 19-41 [facility] Comment on above: Performed By: #### L 100.0100, L500.2500 ####[facility] [address] [place], [address] MCH (RBC) [Entitic mass] 30.4 pg Normal 27.0-32.0 [facility] Comment on above: Performed By: #### L 100.0100, L500.2500 ####[facility] [address] [place], [address] MCHC (RBC) [Mass/Vol] 34.1 g/dL Normal 32-36 [facility] Comment on above: Performed By: #### L 100.0100, L500.2500 ####[facility] [address] [place], [address] MCV (RBC) [Entitic vol] 89.1 fL Normal 80-94 [facility] Comment on above: Performed By: #### L 100.0100, L500.2500 ####[facility] [address] [place], [address] Monocytes/100 WBC (Bld) 10.0 % Normal 0-10 [facility] Comment on above: Performed By: #### L 100.0100, L500.2500 ####[facility] [address] [place], [address] Neutrophils/100 WBC (Bld) 73.3 % High 47-70 [facility] Comment on above: Performed By: #### L 100.0100, L500.2500 ####[facility] [address] [place], [address] Nucleated RBC (Bld) [#/Vol] 0 10*3/uL Normal 0-5 [facility] Comment on above: Performed By: #### L 100.0100, L500.2500 ####[facility] [address] [place], [address] Platelet mean volume (Bld) [Entitic vol] 9.2 fL Normal 6.2-12.0 [facility] Comment on above: Performed By: #### L 100.0100, L500.2500 ####[facility] [address] [place], [address] Platelets (Bld) [#/Vol] 353 10*3/uL Normal 150-450 [facility] Comment on above: Performed By: #### L 100.0100, L500.2500 ####[facility] [address] [place], [address] RBC (Bld) [#/Vol] 3.59 10*6/uL Low 4.6-6.2 [facility] Comment on above: Performed By: #### L 100.0100, L500.2500 ####[facility] [address] [place], [address] RDW SD 41.0 fl Normal 35.1-43.9 [facility] Comment on above: Performed By: #### L 100.0100, L500.2500 ####[facility] [address] [place], [address] WBC (Bld) [#/Vol] 8.4 10*3/uL Normal 4.4-11.0 [facility] Comment on above: Performed By: #### L 100.0100, L500.2500 ####[facility] [address] [place], [address] Carbon dioxide, total [Moles /volume] in Central venous bloodOrdered By: Kelvin Schrader on 11-19-2024 CO2 [Moles/Vol] 21.0 mmol/L 21.0-32.0 [facility] Chloride assayOrdered By: Marybel Schrader on 11-19-2024 Chloride [Moles/Vol] 99 mmol/L 98-108 [facility] Estimation of creatinine dunia aranceOrdered By: Kelvin Schrader on 11-19-2024 Estimated Creatinine Clearance Calc 57.98 ml/min 50-250 [facility] GFR/1.73 sq M.predicted gregg g non-blacks MDRD (S/P/Bld) [Vol rate/Area]Ordered By: Kelvin Schrader on 11-19-2024 Estimated GFR (MDRD) Non-Af Amer 81 >60 [facility] Comment on above: mL/min/1.73m2 CKD-EP I Creatinine Equation (2020) Glomerular filtration rate ( GFR) estimation/1.73 sq m using serum, plasma, or whole bOrdered By: Kelvin Schrader on 11-19-2024 GFR/1.73 sq M.predicted among non-blacks MDRD (S/P/Bld) [Vol rate/Area] 81 mL/min/{1.73_m2} >60 [facility] Comment on above: mL/min/1.73m2 CKD-EP I Creatinine Equation (2020) MR/CON.PCM.GIon 11-19-2024 MR/CON.PCM.GI Normal [facility] MR/POSTOP.ANEon 11-19-2024 MR/POSTOP.ANE Normal [facility] Potassium (Unsp spec) [Mass/ Vol]Ordered By: Kelvin Schrader on 11-19-2024 Potassium [Moles/Vol] 4.0 mmol/L 3.3-5.1 [facility] Potassium measurement (mass/ volume)Ordered By: Kelvin Schrader on 11-19-2024 Potassium (Unsp spec) [Mass/Vol] 4.0 mmol/L 3.3-5.1 [facility] Serum creatinine measurement (mass/volume)Ordered By: Kelvin Schrader on 11-19-2024 Creatinine [Mass/Vol] 0.95 mg/dL 0.70-1.20 [facility] Serum glucose measurement (m ass/volume)Ordered By: Kelvin Schrader on 11-19-2024 Glucose [Mass/Vol] 99 mg/dL 70-99 [facility] Serum or plasma calcium shagufta urement (mass/volume)Ordered By: Kelvin Schrader on 11-19-2024 Calcium [Mass/Vol] 8.8 mg/dL 7.6-11.0 [facility] Serum or plasma urea nitroge n measurement (mass/volume)Ordered By: Kelvin Schrader on 11-19-2024 Urea nitrogen [Mass/Vol] 10 mg/dL 11-17 [facility] Sodium levelOrdered By: Vernon Schrader on 11-19-2024 Sodium [Moles/Vol] 132 mmol/L Low 133-145 [facility] Abdomen/Pelvis W IV Cont ONL Yon 11-18-2024 Abdomen/Pelvis W IV Cont ONLY Normal [facility] Absolute neutrophil countOrd ered By: Radha Damon on 11-18-2024 Neutrophils (Bld) [#/Vol] 5.7 10*3/uL 2.0-7.7 [facility] Anion gap in Serum or Plasma Ordered By: Radha Damon on 11-18-2024 Anion gap [Moles/Vol] 11 mmol/L 12-13 [facility] BUN/creatinine ratioOrdered By: Radha Damon on 11-18-2024 Urea nitrogen/Creatinine [Mass ratio] 13.7 mg/mg 05-20 [facility] Basic Metabolic Profile (BMP )on 11-18-2024 BUN/CRE 13.7 RATIO Normal 05-20 [facility] Comment on above: Performed By: #### L 500.2500, L100.0100 ####[facility] [address] [place], [address] Calcium [Mass/Vol] 8.9 mg/dL Normal 7.6-11.0 [facility] Comment on above: Performed By: #### L 500.2500, L100.0100 ####[facility] [address] [place], [address] Chloride [Moles/Vol] 95 mmol/L Low 98-108 [facility] Comment on above: Performed By: #### L 500.2500, L100.0100 ####[facility] [address] [place], [address] CO2 [Moles/Vol] 24.0 mmol/L Normal 21.0-32.0 [facility] Comment on above: Performed By: #### L 500.2500, L100.0100 ####[facility] [address] [place], [address] Creatinine [Mass/Vol] 1.02 mg/dL Normal 0.70-1.20 [facility] Comment on above: Performed By: #### L 500.2500, L100.0100 ####[facility] [address] [place], [address] ECRCL 54.00 ml/min Normal 50-250 [facility] Comment on above: Performed By: #### L 500.2500, L100.0100 ####[facility] [address] [place], [address] GAP 11 Normal 5-15 [facility] Comment on above: Performed By: #### L 500.2500, L100.0100 ####[facility] [address] [place], [address] GFR/1.73 sq M.predicted among non-blacks MDRD (S/P/Bld) [Vol rate/Area] 74 mL/min/{1.73_m2} Normal >60 [facility] Comment on above: Result Comment: mL/m in/1.73m2 CKD-EPI Creatinine Equation (2020) Performed By: #### L 500.2500, L100.0100 ####[facility] [address] [place], [address] Glucose [Mass/Vol] 104 mg/dL High 70-99 [facility] Comment on above: Performed By: #### L 500.2500, L100.0100 ####[facility] [address] [place], [address] Potassium [Moles/Vol] 4.1 mmol/L Normal 3.3-5.1 [facility] Comment on above: Performed By: #### L 500.2500, L100.0100 ####[facility] [address] [place], [address] Sodium [Moles/Vol] 130 mmol/L Low 133-145 [facility] Comment on above: Performed By: #### L 500.2500, L100.0100 ####[facility] [address] [place], [address] Urea nitrogen [Mass/Vol] 14 mg/dL Normal 4-19 [facility] Comment on above: Performed By: #### L 500.2500, L100.0100 ####[facility] [address] [place], [address] Basophil percentageOrdered B y: Radha Damon on 11-18-2024 Basophils/100 WBC (Bld) 0.3 % 0-1 [facility] CBC W/Diff, Automatedon 10-31 0-2024 Absolute Lymph 1.14 X10 3/uL Normal 0.83-4.51 [facility] Comment on above: Performed By: #### L 500.2500, L100.0100 ####[facility] [address] [place], [address] Absolute Neut 5.7 X10 3/uL Normal 2.0-7.7 [facility] Comment on above: Performed By: #### L 500.2500, L100.0100 ####[facility] [address] [place], [address] Basophils/100 WBC (Bld) 0.3 % Normal 0-1 [facility] Comment on above: Performed By: #### L 500.2500, L100.0100 ####[facility] [address] [place], [address] Eosinophils/100 WBC (Bld) 1.8 % Normal 0-5 [facility] Comment on above: Performed By: #### L 500.2500, L100.0100 ####[facility] [address] [place], [address] Erythrocyte distribution width (RBC) [Ratio] 12.4 % Normal 11.6-14.6 [facility] Comment on above: Performed By: #### L 500.2500, L100.0100 ####[facility] [address] [place], [address] Hematocrit (Bld) [Volume fraction] 29.1 % Low 40-54 [facility] Comment on above: Performed By: #### L 500.2500, L100.0100 ####[facility] [address] [place], [address] Hemoglobin (Bld) [Mass/Vol] 10.3 g/dL Low 13.0-16.5 [facility] Comment on above: Performed By: #### L 500.2500, L100.0100 ####[facility] [address] [place], [address] IG% 0.400 Normal 0.0-0.9 [facility] Comment on above: Result Comment: IG% - Immature Granulocytes (promyelocytes, myelocytes andmetamyelocytes) > 1% indicates that a LEFT SHIFT is Present. Performed By: #### L 500.2500, L100.0100 ####[facility] [address] [place], [address] Lymphocytes/100 WBC (Bld) 14.4 % Low 19-41 [facility] Comment on above: Performed By: #### L 500.2500, L100.0100 ####[facility] [address] [place], [address] MCH (RBC) [Entitic mass] 30.8 pg Normal 27.0-32.0 [facility] Comment on above: Performed By: #### L 500.2500, L100.0100 ####[facility] [address] [place], [address] MCHC (RBC) [Mass/Vol] 35.4 g/dL Normal 32-36 [facility] Comment on above: Performed By: #### L 500.2500, L100.0100 ####[facility] [address] [place], [address] MCV (RBC) [Entitic vol] 87.1 fL Normal 80-94 [facility] Comment on above: Performed By: #### L 500.2500, L100.0100 ####[facility] [address] [place], [address] Monocytes/100 WBC (Bld) 11.2 % High 0-10 [facility] Comment on above: Performed By: #### L 500.2500, L100.0100 ####[facility] [address] [place], [address] Neutrophils/100 WBC (Bld) 71.9 % High 47-70 [facility] Comment on above: Performed By: #### L 500.2500, L100.0100 ####[facility] [address] [place], [address] Nucleated RBC (Bld) [#/Vol] 0 10*3/uL Normal 0-5 [facility] Comment on above: Performed By: #### L 500.2500, L100.0100 ####[facility] [address] [place], [address] Platelet mean volume (Bld) [Entitic vol] 8.6 fL Normal 6.2-12.0 [facility] Comment on above: Performed By: #### L 500.2500, L100.0100 ####[facility] [address] [place], [address] Platelets (Bld) [#/Vol] 333 10*3/uL Normal 150-450 [facility] Comment on above: Performed By: #### L 500.2500, L100.0100 ####[facility] [address] [place], [address] RBC (Bld) [#/Vol] 3.34 10*6/uL Low 4.6-6.2 [facility] Comment on above: Performed By: #### L 500.2500, L100.0100 ####[facility] [address] [place], [address] RDW SD 39.8 fl Normal 35.1-43.9 [facility] Comment on above: Performed By: #### L 500.2500, L100.0100 ####[facility] [address] [place], [address] WBC (Bld) [#/Vol] 7.9 10*3/uL Normal 4.4-11.0 [facility] Comment on above: Performed By: #### L 500.2500, L100.0100 ####[facility] [address] [place], [address] Carbon dioxide, total [Moles /volume] in Central venous bloodOrdered By: Radha Damon on 11-18-2024 CO2 [Moles/Vol] 24.0 mmol/L 21.0-32.0 [facility] Chloride assayOrdered By: Marybel Damon on 11-18-2024 Chloride [Moles/Vol] 95 mmol/L Low 98-108 [facility] Emergency Department Summary on 11-18-2024 Emergency Department Summary Normal [facility] Eosinophil percentageOrdered By: Radha Damon on 11-18-2024 Eosinophils/100 WBC (Bld) 1.8 % 0-5 [facility] Erythrocyte distribution wid th (RBC) [Ratio]Ordered By: Radha Damon on 11-18-2024 Erythrocyte distribution width (RBC) [Entitic vol] 39.8 fL 35.1-43.9 [facility] Erythrocyte distribution wid th ratioOrdered By: Radha Damon on 11-18-2024 Erythrocyte distribution width (RBC) [Ratio] 12.4 % 11.6-14.6 [facility] Estimation of creatinine dunia aranceOrdered By: Radha Damon on 11-18-2024 Estimated Creatinine Clearance Calc 54.00 ml/min 50-250 [facility] GFR/1.73 sq M.predicted gregg g non-blacks MDRD (S/P/Bld) [Vol rate/Area]Ordered By: Radha Damon on 11-18-2024 Estimated GFR (MDRD) Non-Af Amer 74 >60 [facility] Comment on above: mL/min/1.73m2 CKD-EP I Creatinine Equation (2020) H AND P Exam - Hospitaliston 11-18-2024 H&P Exam - Hospitalist Normal [facility] Hematocrit Auto (Bld) [Volum e fraction]Ordered By: Radha Damon on 11-18-2024 Hematocrit (Bld) [Volume fraction] 29.1 % Low 40-54 [facility] Hemoglobin measurementOrdere d By: Radha Damon on 11-18-2024 Hemoglobin (Bld) [Mass/Vol] 10.3 g/dL Low 13.0-16.5 [facility] Immature granulocytes/100 WB C Auto (Bld)Ordered By: Radha Damon on 11-18-2024 Immature granulocytes/100 WBC (Bld) 0.400 % 0.0-0.9 [facility] Comment on above: IG% - Immature Granu locytes (promyelocytes, myelocytes and metamyelocytes) > 1% indicates that a LEFT SHIFT is Present. Lymphocytes Auto (Unsp spec) [#/Vol]Ordered By: Radha Damon on 11-18-2024 Lymphocytes (Bld) [#/Vol] 1.14 10*3/uL 0.83-4.51 [facility] Lymphocytes/100 WBC Auto (Un sp spec)Ordered By: Radha Damon on 11-18-2024 Lymphocytes/100 WBC (Bld) 14.4 % Low 19-41 [facility] MCV (mean corpuscular volume ) determinationOrdered By: Radha Damon on 11-18-2024 MCV (RBC) [Entitic vol] 87.1 fL 80-94 [facility] Mean corpuscular hemoglobin (MCH) determinationOrdered By: Radha Damon on 11-18-2024 MCH (RBC) [Entitic mass] 30.8 pg 27.0-32.0 [facility] Mean corpuscular hemoglobin concentration (MCHC) determinationOrdered By: Radha Damon on 11-18-2024 MCHC (RBC) [Mass/Vol] 35.4 g/dL 32-36 [facility] Mean platelet volume determi nationOrdered By: Radha Damon on 11-18-2024 Platelet mean volume (Bld) [Entitic vol] 8.6 fL 6.2-12.0 [facility] Monocyte percentageOrdered B y: Radha Damon on 11-18-2024 Monocytes/100 WBC (Bld) 11.2 % High 0-10 [facility] Neutrophil percentageOrdered By: Radha Damon on 11-18-2024 Neutrophils/100 WBC (Bld) 71.9 % High 47-70 [facility] Nucleated red blood cell per centageOrdered By: Radha Damon on 11-18-2024 Nucleated RBC/100 WBC (Bld) [Ratio] 0 % 0-5 [facility] Platelet countOrdered By: Marybel Damon on 11-18-2024 Platelets (Bld) [#/Vol] 333 10*3/uL 150-450 [facility] Potassium (Unsp spec) [Mass/ Vol]Ordered By: Radha Damon on 11-18-2024 Potassium [Moles/Vol] 4.1 mmol/L 3.3-5.1 [facility] RBC Auto (Bld) [#/Vol]Ordere d By: Radha Damon on 11-18-2024 RBC (Bld) [#/Vol] 3.34 10*6/uL Low 4.6-6.2 [facility] Serum creatinine measurement (mass/volume)Ordered By: Radha Damon on 11-18-2024 Creatinine [Mass/Vol] 1.02 mg/dL 0.70-1.20 [facility] Serum glucose measurement (m ass/volume)Ordered By: Radha Damon on 11-18-2024 Glucose [Mass/Vol] 104 mg/dL High 70-99 [facility] Serum or plasma calcium shagufta urement (mass/volume)Ordered By: Radha Damon on 11-18-2024 Calcium [Mass/Vol] 8.9 mg/dL 7.6-11.0 [facility] Serum or plasma urea nitroge n measurement (mass/volume)Ordered By: Radha Damon on 11-18-2024 Urea nitrogen [Mass/Vol] 14 mg/dL 4-19 [facility] Sodium levelOrdered By: Seth Damon on 11-18-2024 Sodium [Moles/Vol] 130 mmol/L Low 133-145 [facility] Type AND Screenon 11-18-2024 Ab SCREEN GEL Negative Normal [facility] Comment on above: Order Comment: HGI Performed By: #### B TS ####[facility] [address] [place], [address] White blood cell (WBC) count Ordered By: Radha Damon on 11-18-2024 WBC (Bld) [#/Vol] 7.9 10*3/uL 4.4-11.0 [facility] Ova and Parasites 8623on OP Normal [facility] Comment on above: Performed By: #### M 100.0605, M100.6796, M100.637, M600.5000 ####[facility] [address] [place], [place], [address] 12 Lead EKGon 11-07-2024 12 Lead EKG Normal [facility] Absolute lymphocyte countOrd ered By: Stevie Harrington on 11-07-2024 Lymphocytes Auto (Unsp spec) [#/Vol] 0.91 10*3/uL 0.83-4.51 [facility] Absolute neutrophil countOrd ered By: Stevie Harrington on 11-07-2024 Neutrophils (Bld) [#/Vol] 4.3 10*3/uL 2.0-7.7 [facility] Anion gap in Serum or Plasma Ordered By: Stevie Harrington on 11-07-2024 Anion gap [Moles/Vol] 14 mmol/L 5-15 [facility] Automated lymphocyte count a s percentage of total leukocytesOrdered By: Stevie Harrington on 11-07-2024 Lymphocytes/100 WBC Auto (Unsp spec) 14.8 % Low 19-41 [facility] BUN/creatinine ratioOrdered By: Stevie Harrington on 11-07-2024 Urea nitrogen/Creatinine [Mass ratio] 16.0 mg/mg 10- [facility] Basic Metabolic Profile (BMP )on 11-07-2024 BUN/CRE 16.0 RATIO Normal 10- [facility] Comment on above: Performed By: #### L 500.2500, L100.0100 ####[facility] [address] [place], [address] Calcium [Mass/Vol] 8.6 mg/dL Normal 7.6-11.0 [facility] Comment on above: Performed By: #### L 500.2500, L100.0100 ####[facility] [address] [place], [address] Chloride [Moles/Vol] 96 mmol/L Low 98-108 [facility] Comment on above: Performed By: #### L 500.2500, L100.0100 ####[facility] [address] [place], [address] CO2 [Moles/Vol] 18.1 mmol/L Low 21.0-32.0 [facility] Comment on above: Performed By: #### L 500.2500, L100.0100 ####[facility] [address] [place], [address] Creatinine [Mass/Vol] 1.02 mg/dL Normal 0.70-1.20 [facility] Comment on above: Performed By: #### L 500.2500, L100.0100 ####[facility] [address] [place], [address] ECRCL 54.00 ml/min Normal 50-250 [facility] Comment on above: Performed By: #### L 500.2500, L100.0100 ####[facility] [address] [place], [address] GAP 14 Normal 5-15 [facility] Comment on above: Performed By: #### L 500.2500, L100.0100 ####[facility] [address] [place], [address] GFR/1.73 sq M.predicted among non-blacks MDRD (S/P/Bld) [Vol rate/Area] 74 mL/min/{1.73_m2} Normal >60 [facility] Comment on above: Result Comment: mL/m in/1.73m2 CKD-EPI Creatinine Equation (2020) Performed By: #### L 500.2500, L100.0100 ####[facility] [address] [place], [address] Glucose [Mass/Vol] 92 mg/dL Normal 70-99 [facility] Comment on above: Performed By: #### L 500.2500, L100.0100 ####[facility] [address] [place], [address] Potassium [Moles/Vol] 3.8 mmol/L Normal 3.3-5.1 [facility] Comment on above: Performed By: #### L 500.2500, L100.0100 ####[facility] [address] [place], [address] Sodium [Moles/Vol] 128 mmol/L Low 133-145 [facility] Comment on above: Performed By: #### L 500.2500, L100.0100 ####[facility] [address] [place], [address] Urea nitrogen [Mass/Vol] 16 mg/dL Normal 4-19 [facility] Comment on above: Performed By: #### L 500.2500, L100.0100 ####[facility] [address] [place], [address] Basophil percentageOrdered B y: Stevie Harrington on 11-07-2024 Basophils/100 WBC (Bld) 0.5 % 0-1 [facility] CBC W/Diff, Automatedon Absolute Lymph 0.91 X10 3/uL Normal 0.83-4.51 [facility] Comment on above: Performed By: #### L 500.2500, L100.0100 ####[facility] [address] [place], [address] Absolute Neut 4.3 X10 3/uL Normal 2.0-7.7 [facility] Comment on above: Performed By: #### L 500.2500, L100.0100 ####[facility] [address] [place], [address] Basophils/100 WBC (Bld) 0.5 % Normal 0-1 [facility] Comment on above: Performed By: #### L 500.2500, L100.0100 ####[facility] [address] [place], [address] Eosinophils/100 WBC (Bld) 1.3 % Normal 0-5 [facility] Comment on above: Performed By: #### L 500.2500, L100.0100 ####[facility] [address] [place], [address] Erythrocyte distribution width (RBC) [Ratio] 12.3 % Normal 11.6-14.6 [facility] Comment on above: Performed By: #### L 500.2500, L100.0100 ####[facility] [address] [place], [address] Hematocrit (Bld) [Volume fraction] 34.0 % Low 40-54 [facility] Comment on above: Performed By: #### L 500.2500, L100.0100 ####[facility] [address] [place], [address] Hemoglobin (Bld) [Mass/Vol] 11.9 g/dL Low 13.0-16.5 [facility] Comment on above: Performed By: #### L 500.2500, L100.0100 ####[facility] [address] [place], [address] IG% 0.500 Normal 0.0-0.9 [facility] Comment on above: Result Comment: IG% - Immature Granulocytes (promyelocytes, myelocytes andmetamyelocytes) > 1% indicates that a LEFT SHIFT is Present. Performed By: #### L 500.2500, L100.0100 ####[facility] [address] [place], [address] Lymphocytes/100 WBC (Bld) 14.8 % Low 19-41 [facility] Comment on above: Performed By: #### L 500.2500, L100.0100 ####[facility] [address] [place], [address] MCH (RBC) [Entitic mass] 30.6 pg Normal 27.0-32.0 [facility] Comment on above: Performed By: #### L 500.2500, L100.0100 ####[facility] [address] [place], [address] MCHC (RBC) [Mass/Vol] 35.0 g/dL Normal 32-36 [facility] Comment on above: Performed By: #### L 500.2500, L100.0100 ####[facility] [address] [place], [address] MCV (RBC) [Entitic vol] 87.4 fL Normal 80-94 [facility] Comment on above: Performed By: #### L 500.2500, L100.0100 ####[facility] [address] [place], [address] Monocytes/100 WBC (Bld) 12.5 % High 0-10 [facility] Comment on above: Performed By: #### L 500.2500, L100.0100 ####[facility] [address] [place], [address] Neutrophils/100 WBC (Bld) 70.4 % High 47-70 [facility] Comment on above: Performed By: #### L 500.2500, L100.0100 ####[facility] [address] [place], [address] Nucleated RBC (Bld) [#/Vol] 0 10*3/uL Normal 0-5 [facility] Comment on above: Performed By: #### L 500.2500, L100.0100 ####[facility] [address] [place], [address] Platelet mean volume (Bld) [Entitic vol] 9.3 fL Normal 6.2-12.0 [facility] Comment on above: Performed By: #### L 500.2500, L100.0100 ####[facility] [address] [place], [address] Platelets (Bld) [#/Vol] 285 10*3/uL Normal 150-450 [facility] Comment on above: Performed By: #### L 500.2500, L100.0100 ####[facility] [address] [place], [address] RBC (Bld) [#/Vol] 3.89 10*6/uL Low 4.6-6.2 [facility] Comment on above: Performed By: #### L 500.2500, L100.0100 ####[facility] [address] [place], [address] RDW SD 39.5 fl Normal 35.1-43.9 [facility] Comment on above: Performed By: #### L 500.2500, L100.0100 ####[facility] [address] [place], [address] WBC (Bld) [#/Vol] 6.2 10*3/uL Normal 4.4-11.0 [facility] Comment on above: Performed By: #### L 500.2500, L100.0100 ####[facility] [address] [place], [place], [id number] Carbon dioxide, total [Moles /volume] in Central venous bloodOrdered By: Stevie Harrington on 11-07-2024 CO2 [Moles/Vol] 18.1 mmol/L Low 21.0-32.0 [facility] Chloride assayOrdered By: Brant Harrington on 11-07-2024 Chloride [Moles/Vol] 96 mmol/L Low 98-108 [facility] Electrocardiogram reportOrde red By: Adrian Flores on 11-07-2024 EKG study [facility] Cardiovascular Services [address] [place] [address] 12 Lead EKG 11/07/24 0553 MR#: [id number] Acct: [id number] Name: JARED RAYMOND Rep #:[id number] : 1945 79 From: Adrian Flores MD Attending Dr: Dr. Stevie Harrington, DO Status: ADM IN Ordering Dr: Steven Ann MD Date: 04/25 Location: [facility] Sex: M C Admitted: 11/06/24 [...] was found Confirmed by ADRIAN FLORES MD ([id number]), business editor ELIZ LOPEZ ([id number]) on 11/07/2024 1:45:42 PM Referred By: Confirmed By: ADRIAN FLORES MD 11/07/24 0951 Date _ Adrian Flores MD CC: [employer] ASSOCIATECatherine Olson; Dr. Steven Ann MD; Dr. Stevie Harrington, DO ~ Signed [facility] Work Phone: Eosinophil percentageOrdered By: Stevie Harrington on 11-07-2024 Eosinophils/100 WBC (Bld) 1.3 % 0-5 [facility] Erythrocyte distribution wid th (RBC) [Ratio]Ordered By: Stevie Harrington on 11-07-2024 Erythrocyte distribution width (RBC) [Entitic vol] 39.5 fL 35.1-43.9 [facility] Erythrocyte distribution wid th ratioOrdered By: Stevie Harrington on 11-07-2024 Erythrocyte distribution width (RBC) [Ratio] 12.3 % 11.6-14.6 [facility] Erythrocyte distribution wid th standard deviationOrdered By: Stevie Harrington on 11-07-2024 Erythrocyte distribution width (RBC) [Ratio] 39.5 fl 35.1-43.9 [facility] Estimation of creatinine dunia aranceOrdered By: Stevie Harrington on 11-07-2024 Estimated Creatinine Clearance Calc 54.00 ml/min 50-250 [facility] GFR/1.73 sq M.predicted gregg g non-blacks MDRD (S/P/Bld) [Vol rate/Area]Ordered By: Stevie Harrington on 11-07-2024 Estimated GFR (MDRD) Non-Af Amer 74 >60 [facility] Comment on above: mL/min/1.73m2 CKD-EP I Creatinine Equation (2020) Glomerular filtration rate ( GFR) estimation/1.73 sq m using serum, plasma, or whole bOrdered By: Stevie Harrington on 11-07-2024 GFR/1.73 sq M.predicted among non-blacks MDRD (S/P/Bld) [Vol rate/Area] 74 mL/min/{1.73_m2} >60 [facility] Comment on above: mL/min/1.73m2 CKD-EP I Creatinine Equation (2020) Hematocrit Auto (Bld) [Volum e fraction]Ordered By: Stevie Harrington on 11-07-2024 Hematocrit (Bld) [Volume fraction] 34.0 % Low 40-54 [facility] Hemoglobin measurementOrdere d By: Stevie Harrington on 11-07-2024 Hemoglobin (Bld) [Mass/Vol] 11.9 g/dL Low 13.0-16.5 [facility] Immature granulocytes/100 WB C Auto (Bld)Ordered By: Stevie Harrington on 11-07-2024 Immature granulocytes/100 WBC (Bld) 0.500 % 0.0-0.9 [facility] Comment on above: IG% - Immature Granu locytes (promyelocytes, myelocytes and metamyelocytes) > 1% indicates that a LEFT SHIFT is Present. Lymphocytes Auto (Unsp spec) [#/Vol]Ordered By: Stevie Harrington on 11-07-2024 Lymphocytes (Bld) [#/Vol] 0.91 10*3/uL 0.83-4.51 [facility] Lymphocytes/100 WBC Auto (Un sp spec)Ordered By: Stevie Harrington on 11-07-2024 Lymphocytes/100 WBC (Bld) 14.8 % Low 19-41 [facility] MCV (mean corpuscular volume ) determinationOrdered By: Stevie Harrington on 11-07-2024 MCV (RBC) [Entitic vol] 87.4 fL 80-94 [facility] Mean corpuscular hemoglobin (MCH) determinationOrdered By: Stevie Harrington on 11-07-2024 MCH (RBC) [Entitic mass] 30.6 pg 27.0-32.0 [facility] Mean corpuscular hemoglobin concentration (MCHC) determinationOrdered By: Stevie Harrington on 11-07-2024 MCHC (RBC) [Mass/Vol] 35.0 g/dL 32-36 [facility] Mean platelet volume determi nationOrdered By: Stevie Harrington on 11-07-2024 Platelet mean volume (Bld) [Entitic vol] 9.3 fL 6.2-12.0 [facility] Monocyte percentageOrdered B y: Stevie Harrington on 11-07-2024 Monocytes/100 WBC (Bld) 12.5 % High 0-10 [facility] Neutrophil percentageOrdered By: Stevie Harrington on 11-07-2024 Neutrophils/100 WBC (Bld) 70.4 % High 47-70 [facility] Nucleated red blood cell per centageOrdered By: Stevie Harrington on 11-07-2024 Nucleated RBC/100 WBC (Bld) [Ratio] 0 % 0-5 [facility] Platelet countOrdered By: Brant Harrington on 11-07-2024 Platelets (Bld) [#/Vol] 285 10*3/uL 150-450 [facility] Potassium (Unsp spec) [Mass/ Vol]Ordered By: Stevie Harrington on 11-07-2024 Potassium [Moles/Vol] 3.8 mmol/L 3.3-5.1 [facility] Potassium measurement (mass/ volume)Ordered By: Stevie Harrington on 11-07-2024 Potassium (Unsp spec) [Mass/Vol] 3.8 mmol/L 3.3-5.1 [facility] RBC Auto (Bld) [#/Vol]Ordere d By: Stevie Harrington on 11-07-2024 RBC (Bld) [#/Vol] 3.89 10*6/uL Low 4.6-6.2 [facility] Serum creatinine measurement (mass/volume)Ordered By: Stevie Harrington on 11-07-2024 Creatinine [Mass/Vol] 1.02 mg/dL 0.70-1.20 [facility] Serum glucose measurement (m ass/volume)Ordered By: Stevie Harrington on 11-07-2024 Glucose [Mass/Vol] 92 mg/dL 70-99 [facility] Serum or plasma calcium shagufta urement (mass/volume)Ordered By: Stevie Harrington on 11-07-2024 Calcium [Mass/Vol] 8.6 mg/dL 7.6-11.0 [facility] Serum or plasma urea nitroge n measurement (mass/volume)Ordered By: Stevie Harrington on 11-07-2024 Urea nitrogen [Mass/Vol] 16 mg/dL 4-19 [facility] Sodium levelOrdered By: Stevie Harrington on 11-07-2024 Sodium [Moles/Vol] 128 mmol/L Low 133-145 [facility] White blood cell (WBC) count Ordered By: Stevie Harrington on 11-07-2024 WBC (Bld) [#/Vol] 6.2 10*3/uL 4.4-11.0 [facility] Bilirubin, totalOrdered By: Darrel Sanders on 11-06-2024 Bilirubin [Mass/Vol] 0.64 mg/dL 0.00-1.30 [facility] C. difficile DNA BLESSING+probe Q l (Unsp spec)Ordered By: Darrel Sanders on 11-06-2024 Clostridioides difficile (PCR) [facility] CBC W/Diff, Automatedon Absolute Lymph 0.59 X10 3/uL Low 0.83-4.51 [facility] Comment on above: Performed By: #### L 100.0100 ####[facility] [address] [place], [address] Absolute Neut 5.0 X10 3/uL Normal 2.0-7.7 [facility] Comment on above: Performed By: #### L 100.0100 ####[facility] [address] [place], [address] Basophils/100 WBC (Bld) 0.3 % Normal 0-1 [facility] Comment on above: Performed By: #### L 100.0100 ####[facility] [address] [place], [address] Eosinophils/100 WBC (Bld) 0.3 % Normal 0-5 [facility] Comment on above: Performed By: #### L 100.0100 ####[facility] [address] [place], [address] Erythrocyte distribution width (RBC) [Ratio] 12.3 % Normal 11.6-14.6 [facility] Comment on above: Performed By: #### L 100.0100 ####[facility] [address] [place], [address] Hematocrit (Bld) [Volume fraction] 33.9 % Low 40-54 [facility] Comment on above: Performed By: #### L 100.0100 ####[facility] [address] [place], [address] Hemoglobin (Bld) [Mass/Vol] 11.9 g/dL Low 13.0-16.5 [facility] Comment on above: Performed By: #### L 100.0100 ####[facility] [address] [place], [address] IG% 0.300 Normal 0.0-0.9 [facility] Comment on above: Result Comment: IG% - Immature Granulocytes (promyelocytes, myelocytes andmetamyelocytes) > 1% indicates that a LEFT SHIFT is Present. Performed By: #### L 100.0100 ####[facility] [address] [place], [address] Lymphocytes/100 WBC (Bld) 9.1 % Low 19-41 [facility] Comment on above: Performed By: #### L 100.0100 ####[facility] [address] [place], [address] MCH (RBC) [Entitic mass] 31.1 pg Normal 27.0-32.0 [facility] Comment on above: Performed By: #### L 100.0100 ####[facility] [address] [place], [address] MCHC (RBC) [Mass/Vol] 35.1 g/dL Normal 32-36 [facility] Comment on above: Performed By: #### L 100.0100 ####[facility] [address] [place], [address] MCV (RBC) [Entitic vol] 88.5 fL Normal 80-94 [facility] Comment on above: Performed By: #### L 100.0100 ####[facility] [address] [place], [address] Monocytes/100 WBC (Bld) 11.9 % High 0-10 [facility] Comment on above: Performed By: #### L 100.0100 ####[facility] [address] [place], [address] Neutrophils/100 WBC (Bld) 78.1 % High 47-70 [facility] Comment on above: Performed By: #### L 100.0100 ####[facility] [address] [place], [address] Nucleated RBC (Bld) [#/Vol] 0 10*3/uL Normal 0-5 [facility] Comment on above: Performed By: #### L 100.0100 ####[facility] [address] [place], [address] Platelet mean volume (Bld) [Entitic vol] 9.1 fL Normal 6.2-12.0 [facility] Comment on above: Performed By: #### L 100.0100 ####[facility] [address] [place], [address] Platelets (Bld) [#/Vol] 290 10*3/uL Normal 150-450 [facility] Comment on above: Performed By: #### L 100.0100 ####[facility] [address] [place], [address] RBC (Bld) [#/Vol] 3.83 10*6/uL Low 4.6-6.2 [facility] Comment on above: Performed By: #### L 100.0100 ####[facility] [address] [place], [address] RDW SD 39.8 fl Normal 35.1-43.9 [facility] Comment on above: Performed By: #### L 100.0100 ####[facility] [address] [place], [address] WBC (Bld) [#/Vol] 6.5 10*3/uL Normal 4.4-11.0 [facility] Comment on above: Performed By: #### L 100.0100 ####[facility] [address] [place], [address] Absolute Lymph 1.08 X10 3/uL Normal 0.83-4.51 [facility] Comment on above: Performed By: #### L 501.2300, L100.0100, L500.4050 ####[facility] [address] [place], [address] Absolute Neut 5.9 X10 3/uL Normal 2.0-7.7 [facility] Comment on above: Performed By: #### L 501.2300, L100.0100, L500.4050 ####[facility] [address] [place], [address] Basophils/100 WBC (Bld) 0.3 % Normal 0-1 [facility] Comment on above: Performed By: #### L 501.2300, L100.0100, L500.4050 ####[facility] [address] [place], [address] Eosinophils/100 WBC (Bld) 1.4 % Normal 0-5 [facility] Comment on above: Performed By: #### L 501.2300, L100.0100, L500.4050 ####[facility] [address] [place], [address] Erythrocyte distribution width (RBC) [Ratio] 12.2 % Normal 11.6-14.6 [facility] Comment on above: Performed By: #### L 501.2300, L100.0100, L500.4050 ####[facility] [address] [place], [address] Hematocrit (Bld) [Volume fraction] 35.2 % Low 40-54 [facility] Comment on above: Performed By: #### L 501.2300, L100.0100, L500.4050 ####[facility] [address] [place], [address] Hemoglobin (Bld) [Mass/Vol] 12.3 g/dL Low 13.0-16.5 [facility] Comment on above: Performed By: #### L 501.2300, L100.0100, L500.4050 ####[facility] [address] [place], [address] IG% 0.300 Normal 0.0-0.9 [facility] Comment on above: Result Comment: IG% - Immature Granulocytes (promyelocytes, myelocytes andmetamyelocytes) > 1% indicates that a LEFT SHIFT is Present. Performed By: #### L 501.2300, L100.0100, L500.4050 ####[facility] [address] [place], [address] Lymphocytes/100 WBC (Bld) 13.7 % Low 19-41 [facility] Comment on above: Performed By: #### L 501.2300, L100.0100, L500.4050 ####[facility] [address] [place], [address] MCH (RBC) [Entitic mass] 30.4 pg Normal 27.0-32.0 [facility] Comment on above: Performed By: #### L 501.2300, L100.0100, L500.4050 ####[facility] [address] [place], [address] MCHC (RBC) [Mass/Vol] 34.9 g/dL Normal 32-36 [facility] Comment on above: Performed By: #### L 501.2300, L100.0100, L500.4050 ####[facility] [address] [place], [address] MCV (RBC) [Entitic vol] 87.1 fL Normal 80-94 [facility] Comment on above: Performed By: #### L 501.2300, L100.0100, L500.4050 ####[facility] [address] [place], [address] Monocytes/100 WBC (Bld) 9.8 % Normal 0-10 [facility] Comment on above: Performed By: #### L 501.2300, L100.0100, L500.4050 ####[facility] [address] [place], [address] Neutrophils/100 WBC (Bld) 74.5 % High 47-70 [facility] Comment on above: Performed By: #### L 501.2300, L100.0100, L500.4050 ####[facility] [address] [place], [address] Nucleated RBC (Bld) [#/Vol] 0 10*3/uL Normal 0-5 [facility] Comment on above: Performed By: #### L 501.2300, L100.0100, L500.4050 ####[facility] [address] [place], [address] Platelet mean volume (Bld) [Entitic vol] 8.7 fL Normal 6.2-12.0 [facility] Comment on above: Performed By: #### L 501.2300, L100.0100, L500.4050 ####[facility] [address] [place], [address] Platelets (Bld) [#/Vol] 303 10*3/uL Normal 150-450 [facility] Comment on above: Performed By: #### L 501.2300, L100.0100, L500.4050 ####[facility] [address] [place], [address] RBC (Bld) [#/Vol] 4.04 10*6/uL Low 4.6-6.2 [facility] Comment on above: Performed By: #### L 501.2300, L100.0100, L500.4050 ####[facility] [address] [place], [address] RDW SD 39.1 fl Normal 35.1-43.9 [facility] Comment on above: Performed By: #### L 501.2300, L100.0100, L500.4050 ####[facility] [address] [place], [address] WBC (Bld) [#/Vol] 7.9 10*3/uL Normal 4.4-11.0 [facility] Comment on above: Performed By: #### L 501.2300, L100.0100, L500.4050 ####[facility] [address] [place], [address] CDIFF (PCR)on 11-06-2024 CDIFF Is the patient recei ving laxatives? N New/unexplained onset of 3 or more stools in past 24 hrs? Y 027 027 NAP1-B1 Presumptive Negative *for epidemiolologic???use C. Diff PCR Negative- No toxigenic C. Diff Detected Normal [facility] Comment on above: Performed By: #### M 100.0605, M100.6796, M100.637, M600.5000 ####[facility] [address] [place], [address] Calculated total iron bindin g capacityOrdered By: Darrel Sanders on 11-06-2024 Total Iron Binding Capacity 270 ug/dL 250-450 [facility] Clostridium difficile detect ion by polymerase chain reactionOrdered By: Darrel Sanders on 11-06-2024 C. difficile DNA BLESSING+probe Ql (Unsp spec) [facility] Colonoscopy Reporton 025 Colonoscopy Report Normal [facility] Comprehensive Metabolic Prof ilon 11-06-2024 Albumin [Mass/Vol] 3.9 g/dL Normal 3.4-4.8 [facility] Comment on above: Performed By: #### L 501.2300, L100.0100, L500.4050 ####[facility] [address] [place], [address] Albumin/Globulin [Mass ratio] 1.4 {ratio} Normal 0.9-2.4 [facility] Comment on above: Performed By: #### L 501.2300, L100.0100, L500.4050 ####[facility] [address] [place], [address] ALK PHOS 101 U/L Normal 40-129 [facility] Comment on above: Performed By: #### L 501.2300, L100.0100, L500.4050 ####[facility] [address] [place], [address] ALT [Catalytic activity/Vol] 14 U/L Normal <=46 [facility] Comment on above: Performed By: #### L 501.2300, L100.0100, L500.4050 ####[facility] [address] [place], [address] AST [Catalytic activity/Vol] 22 U/L Normal <=37 [facility] Comment on above: Performed By: #### L 501.2300, L100.0100, L500.4050 ####[facility] [address] [place], [address] Bilirubin [Mass/Vol] 0.64 mg/dL Normal 0.00-1.30 [facility] Comment on above: Performed By: #### L 501.2300, L100.0100, L500.4050 ####[facility] [address] [place], [address] BUN/CRE 14.4 RATIO Normal 10-20 [facility] Comment on above: Performed By: #### L 501.2300, L100.0100, L500.4050 ####[facility] [address] [place], [address] Calcium [Mass/Vol] 8.8 mg/dL Normal 7.6-11.0 [facility] Comment on above: Performed By: #### L 501.2300, L100.0100, L500.4050 ####[facility] [address] [place], [address] Chloride [Moles/Vol] 96 mmol/L Low 98-108 [facility] Comment on above: Performed By: #### L 501.2300, L100.0100, L500.4050 ####[facility] [address] [place], [address] CO2 [Moles/Vol] 21.7 mmol/L Normal 21.0-32.0 [facility] Comment on above: Performed By: #### L 501.2300, L100.0100, L500.4050 ####[facility] [address] [place], [address] Creatinine [Mass/Vol] 0.97 mg/dL Normal 0.70-1.20 [facility] Comment on above: Performed By: #### L 501.2300, L100.0100, L500.4050 ####[facility] [address] [place], [address] ECRCL 56.79 ml/min Normal 50-250 [facility] Comment on above: Performed By: #### L 501.2300, L100.0100, L500.4050 ####[facility] [address] [place], [address] GAP 12 Normal 5-15 [facility] Comment on above: Performed By: #### L 501.2300, L100.0100, L500.4050 ####[facility] [address] [place], [address] GFR/1.73 sq M.predicted among non-blacks MDRD (S/P/Bld) [Vol rate/Area] 79 mL/min/{1.73_m2} Normal >60 [facility] Comment on above: Result Comment: mL/m in/1.73m2 CKD-EPI Creatinine Equation (2020) Performed By: #### L 501.2300, L100.0100, L500.4050 ####[facility] [address] [place], [address] Globulin (S) [Mass/Vol] 2.8 g/dL Normal 2.2-4.2 [facility] Comment on above: Performed By: #### L 501.2300, L100.0100, L500.4050 ####[facility] [address] [place], [address] Glucose [Mass/Vol] 99 mg/dL Normal 70-99 [facility] Comment on above: Performed By: #### L 501.2300, L100.0100, L500.4050 ####[facility] [address] [place], [address] Potassium [Moles/Vol] 4.1 mmol/L Normal 3.3-5.1 [facility] Comment on above: Performed By: #### L 501.2300, L100.0100, L500.4050 ####[facility] [address] [place], [address] Sodium [Moles/Vol] 130 mmol/L Low 133-145 [facility] Comment on above: Performed By: #### L 501.2300, L100.0100, L500.4050 ####[facility] [address] [place], [address] T PROT 6.7 g/dL Normal 5.9-8.4 [facility] Comment on above: Performed By: #### L 501.2300, L100.0100, L500.4050 ####[facility] [address] [place], [address] Urea nitrogen [Mass/Vol] 14 mg/dL Normal 4-19 [facility] Comment on above: Performed By: #### L 501.2300, L100.0100, L500.4050 ####[facility] [address] [place], [address] ENTERIC PATHOGEN PANEL STOOL on 11-06-2024 EP PANEL Normal [facility] Comment on above: Performed By: #### M 100.0605, M100.6796, M100.637, M600.5000 ####[facility] [address] [place], [address] Emergency Department Summary on 11-06-2024 Emergency Department Summary Normal [facility] Ferritinon 11-06-2024 Ferritin [Mass/Vol] 138 ng/mL Normal 37-417 [facility] Comment on above: Performed By: #### L 501.9520, L503.6550, L503.0106, L503.6030, L501.7300 ####[facility] [address] [place], [address] H AND P Exam - Hospitaliston 11-06-2024 H&P Exam - Hospitalist Normal [facility] Iron (Unsp spec) [Mass/Mass] Ordered By: Darrel Sanders on 11-06-2024 Iron [Mass/Vol] 50 ug/dL Low 65-175 [facility] Iron measurement (mass/mass) Ordered By: Darrel Sanders on 11-06-2024 Iron (Unsp spec) [Mass/Mass] 50 ug/dL Low 65-175 [facility] Iron saturation [Mass fracti on]Ordered By: Darrel Sanders on 11-06-2024 Iron Saturation 19.0 % 9-55 [facility] Iron+Iron Binding Capacityon 11-06-2024 Iron [Mass/Vol] 50 ug/dL Low 65-175 [facility] Comment on above: Performed By: #### L 501.9520, L503.6550, L503.0106, L503.6030, L501.7300 ####[facility] [address] [place], [address] IRON SATURATION 19.0 Normal 9-55 [facility] Comment on above: Performed By: #### L 501.9520, L503.6550, L503.0106, L503.6030, L501.7300 ####[facility] [address] [place], [address] TIBC 270 ug/dL Normal 250-450 [facility] Comment on above: Performed By: #### L 501.9520, L503.6550, L503.0106, L503.6030, L501.7300 ####[facility] [address] [place], [address] UIBC 220 ug/dL Low 228-428 [facility] Comment on above: Performed By: #### L 501.9520, L503.6550, L503.0106, L503.6030, L501.7300 ####[facility] [address] [place], [address] L499.0042on 11-06-2024 Trop T High Sen 23 ng/L High <=22 [facility] Comment on above: Performed By: #### L 499.0042 ####[facility] [address] [place], [address] L499.0043on 11-06-2024 Trop T High Sen 19 ng/L Normal <=22 [facility] Comment on above: Performed By: #### L 499.0043 ####[facility] [address] [place], [address] L501.4021on 11-06-2024 Trop T High Sen 18 ng/L Normal <=22 [facility] Comment on above: Performed By: #### L 501.4021 ####[facility] [address] [place], [address] Laboratory - Chemistry and C hemistry - challengeOrdered By: Darrel Sanders on 11-06-2024 AST [Catalytic activity/Vol] 22 U/L <38 [facility] Lactoferrin IA Ql (Stl)Order ed By: Darrel Sanders on 11-06-2024 Stool Lactoferrin [facility] MR/CON.PCM.GIon 11-06-2024 MR/CON.PCM.GI Normal [facility] MR/POSTOP.ANEon 11-06-2024 MR/POSTOP.ANE Normal [facility] MR/RLKCOKEM3sp 11-06-2024 MR/POSTOPAN2 Normal [facility] Magnesiumon 11-06-2024 Magnesium [Mass/Vol] 2.3 mg/dL High 1.5-2.2 [facility] Comment on above: Performed By: #### L 501.5200 ####[facility] [address] [place], [place], [address] No Panel InformationOrdered By: Darrel Sanders on 11-06-2024 Unsaturated Iron Binding Capacity 220 ug/dL Low 228-428 [facility] 22 U/L <38 [facility] 220 ug/dL Low 228-428 [facility] Osmolality (U) [Osmolality]O rdered By: Darrel Sanders on 11-06-2024 Urine Osmolality 363 mOsm/KG >50 [facility] Comment on above: Normal Urine Referen ce Ranges Random: 50 - 1200 mOsm/kg H20 depending on fluid intake Random: >850 mOsm/kg after 12 hour fluid restriction 24 hour: ~300 - 900 mOsm/kg H2O Osmolality urOrdered By: Esdras Sanders on 11-06-2024 Osmolality (U) [Osmolality] 363 mOsm/KG >50 [facility] Comment on above: Normal Urine Referen ce Ranges Random: 50 - 1200 mOsm/kg H20 depending on fluid intake Random: >850 mOsm/kg after 12 hour fluid restriction 24 hour: ~300 - 900 mOsm/kg H2O Osmolality, Serumon 11-07-19 25 OSMOLALITY,SER 279 mOsm/KG Low 280-301 [facility] Comment on above: Performed By: #### L 501.9520, L503.6550, L503.0106, L503.6030, L501.7300 ####[facility] [address] [place], [address] Osmolality, Urineon 11-07-19 25 OSMOLALITY,UR 363 mOsm/KG Normal [facility] Comment on above: Result Comment: Norm al Urine Reference Ranges Random: 50 - 1200 mOsm/kg H20 depending on fluid intake Random: >850 mOsm/kg after 12 hour fluid restriction 24 hour: 300 - 900 mOsm/kg H2O Performed By: #### L 501.7400 ####[facility] [address] [place], [place], [address] Osmolality, serumOrdered By: Darrel Sanders on 11-06-2024 Serum Osmolality 279 mOsm/KG Low 280-301 [facility] Ova and parasitesOrdered By: Darrel Sanders on 11-06-2024 Ova and Parasites [facility] Phosphoruson 11-06-2024 Phosphate [Mass/Vol] 2.6 mg/dL Low 2.7-4.5 [facility] Comment on above: Performed By: #### L 501.2300, L100.0100, L500.4050 ####[facility] [address] [facility] [place], [place], [address] Serum globulin measurementOr dered By: Darrel Sanders on 11-06-2024 Globulin (S) [Mass/Vol] 2.8 g/dL 2.2-4.2 [facility] Serum or plasma alanine carrion otransferase (ALT) measurementOrdered By: Darrel Sanders on 11-06-2024 ALT [Catalytic activity/Vol] 14 U/L <47 [facility] Serum or plasma albumin shagufta urement (mass/volume)Ordered By: Darrel Sanders on 11-06-2024 Albumin [Mass/Vol] 3.9 g/dL 3.4-4.8 [facility] Serum or plasma albumin/glob ulin mass ratioOrdered By: Darrel Sanders on 11-06-2024 Albumin/Globulin [Mass ratio] 1.4 {ratio} 0.9-2.4 [facility] Serum or plasma alkaline airam sphatase measurementOrdered By: Darrel Sanders on 11-06-2024 ALP [Catalytic activity/Vol] 101 U/L 40-129 [facility] Serum or plasma ferritin francy surement (mass/volume)Ordered By: Darrel Sanders on 11-06-2024 Ferritin [Mass/Vol] 138 ng/mL 37-417 [facility] Serum or plasma iron saturat ion measurement (mass fraction)Ordered By: Darrel Sanders on 11-06-2024 Iron saturation [Mass fraction] 19.0 % 9-55 [facility] Serum phosphorus measurement Ordered By: Darrel Sanders on 11-06-2024 Phosphorus Level 2.6 mg/dL Low 2.7-4.5 [facility] Stool Lactoferrin/WBCon 04-0 WBCST Is the patient recei ving laxatives? N New/unexplained onset of 3 or more stools in past 24 hrs? Y Normal Reference Range = Negative Fecal WBC Lactoferrin A Positive: Fecal WBC Lactoferrin present A Normal [facility] Comment on above: Performed By: #### M 100.0605, M100.6796, M100.637, M600.5000 ####[facility] [address] [place], [address] Stool Occult Blood iFOBon STOB Positive Normal [facility] Comment on above: Performed By: #### M 100.7900, L300.4310, BTS, L503.6005, L500.2500, L100.0100, L300.3900 ####[facility] [address] [place], [address] Stool enteric pathogen panel by probe and target amplification methodOrdered By: Darrel Sanders on 11-06-2024 Enteric Bacteriology [facility] Stool lactoferrin detection by immunoassayOrdered By: Darrel Sanders on 11-06-2024 Lactoferrin IA Ql (Stl) [facility] TSH DL <= 0.005 mIU/L QnOrde red By: Darrel Sanders on 11-06-2024 Thyroid Stimulating Hormone (TSH) 1.900 uIU/mL 0.300-4.200 [facility] TSH Qn 1.900 uIU/mL 0.300-4.200 [facility] Thyroid Stim Hormone (TSH)on 11-06-2024 TSH 1.900 uIU/mL Normal 0.300-4.200 [facility] Comment on above: Performed By: #### L 501.9520, L503.6550, L503.0106, L503.6030, L501.7300 ####[facility] [address] [place], [address] Total proteinOrdered By: Esdras Sanders on 11-06-2024 Protein [Mass/Vol] 6.7 g/dL 5.9-8.4 [facility] Troponin T.cardiac High sens itivity method [Mass/Vol]Ordered By: Darrel Sanders on 11-06-2024 Troponin T High Sensitivity 4 Hour 19 ng/L <22 [facility] Troponin T High Sensitivity 2 Hour 23 ng/L High <22 [facility] Troponin T High Sensitivity 18 ng/L <22 [facility] Troponin T.cardiac [Mass/vol ume] in Serum or Plasma by High sensitivity methodOrdered By: Darrel Sanders on 11-06-2024 Troponin T.cardiac High sensitivity method [Mass/Vol] 19 ng/L <22 [facility] Troponin T.cardiac High sensitivity method [Mass/Vol] 23 ng/L High <22 [facility] Troponin T.cardiac High sensitivity method [Mass/Vol] 18 ng/L <22 [facility] Vitamin B12on 11-06-2024 Cobalamin (Vitamin B12) [Mass/Vol] 790 pg/mL Normal 180-914 [facility] Comment on above: Performed By: #### L 501.9520, L503.6550, L503.0106, L503.6030, L501.7300 ####[facility] [address] [place], [place], [id number] Vitamin B12 ser/plasOrdered By: Darrel Sanders on 11-06-2024 Cobalamin (Vitamin B12) [Mass/Vol] 790 pg/mL 180-914 [facility] Absolute neutrophil countOrd ered By: Harrison Linares on 11-05-2024 Neutrophils (Bld) [#/Vol] 6.9 10*3/uL 2.0-7.7 [facility] Activated partial thrombopla stin time (aPTT) in platelet poor plasma by coagulation aOrdered By: Harrison Linares on 11-05-2024 aPTT Coag (PPP) [Time] 22.1 s Low 24.1-36.2 [facility] Anion gap in Serum or Plasma Ordered By: Harrison Linares on 11-05-2024 Anion gap [Moles/Vol] 12 mmol/L 5-15 [facility] BUN/creatinine ratioOrdered By: Harrison Linares on 11-05-2024 Urea nitrogen/Creatinine [Mass ratio] 15.4 mg/mg - [facility] Basic Metabolic Profile (BMP )on 11-05-2024 BUN/CRE 15.4 RATIO Normal - [facility] Comment on above: Performed By: #### M 100.7900, L300.4310, BTS, L503.6005, L500.2500, L100.0100, L300.3900 ####[facility] [address] [place], [address] Calcium [Mass/Vol] 9.0 mg/dL Normal 7.6-11.0 [facility] Comment on above: Performed By: #### M 100.7900, L300.4310, BTS, L503.6005, L500.2500, L100.0100, L300.3900 ####[facility] [address] [place], [address] Chloride [Moles/Vol] 90 mmol/L Low 98-108 [facility] Comment on above: Performed By: #### M 100.7900, L300.4310, BTS, L503.6005, L500.2500, L100.0100, L300.3900 ####[facility] [address] [place], [address] CO2 [Moles/Vol] 23.8 mmol/L Normal 21.0-32.0 [facility] Comment on above: Performed By: #### M 100.7900, L300.4310, BTS, L503.6005, L500.2500, L100.0100, L300.3900 ####[facility] [address] [place], [address] Creatinine [Mass/Vol] 0.92 mg/dL Normal 0.70-1.20 [facility] Comment on above: Performed By: #### M 100.7900, L300.4310, BTS, L503.6005, L500.2500, L100.0100, L300.3900 ####[facility] [address] [place], [address] ECRCL 59.87 ml/min Normal 50-250 [facility] Comment on above: Performed By: #### M 100.7900, L300.4310, BTS, L503.6005, L500.2500, L100.0100, L300.3900 ####[facility] [address] [place], [address] GAP 12 Normal 5-15 [facility] Comment on above: Performed By: #### M 100.7900, L300.4310, BTS, L503.6005, L500.2500, L100.0100, L300.3900 ####[facility] [address] [place], [address] GFR/1.73 sq M.predicted among non-blacks MDRD (S/P/Bld) [Vol rate/Area] 84 mL/min/{1.73_m2} Normal >60 [facility] Comment on above: Result Comment: mL/m in/1.73m2 CKD-EPI Creatinine Equation (2020) Performed By: #### M 100.7900, L300.4310, BTS, L503.6005, L500.2500, L100.0100, L300.3900 ####[facility] [address] [place], [address] Glucose [Mass/Vol] 110 mg/dL High 70-99 [facility] Comment on above: Performed By: #### M 100.7900, L300.4310, BTS, L503.6005, L500.2500, L100.0100, L300.3900 ####[facility] [address] [place], [address] Potassium [Moles/Vol] 4.0 mmol/L Normal 3.3-5.1 [facility] Comment on above: Performed By: #### M 100.7900, L300.4310, BTS, L503.6005, L500.2500, L100.0100, L300.3900 ####[facility] [address] [place], [address] Sodium [Moles/Vol] 126 mmol/L Low 133-145 [facility] Comment on above: Performed By: #### M 100.7900, L300.4310, BTS, L503.6005, L500.2500, L100.0100, L300.3900 ####[facility] [address] [place], [address] Urea nitrogen [Mass/Vol] 14 mg/dL Normal 4-19 [facility] Comment on above: Performed By: #### M 100.7900, L300.4310, BTS, L503.6005, L500.2500, L100.0100, L300.3900 ####[facility] [address] [place], [address] Basophil percentageOrdered B y: Harrison Linares on 11-05-2024 Basophils/100 WBC (Bld) 0.2 % 0-1 [facility] CBC W/Diff, Automatedon Absolute Lymph 1.16 X10 3/uL Normal 0.83-4.51 [facility] Comment on above: Order Comment: REDRA W. PREVIOUS SPECIMEN REJECTED DUE TOCLOTTED. 11/05/242304 Quintin R Cardenas. Performed By: #### L 100.0100 ####[facility] [address] [place], [address] Absolute Neut 6.9 X10 3/uL Normal 2.0-7.7 [facility] Comment on above: Order Comment: REDRA W. PREVIOUS SPECIMEN REJECTED DUE TOCLOTTED. 11/05/242304 Quintin R Cardenas. Performed By: #### L 100.0100 ####[facility] [address] [place], [address] Basophils/100 WBC (Bld) 0.2 % Normal 0-1 [facility] Comment on above: Order Comment: REDRA W. PREVIOUS SPECIMEN REJECTED DUE TOCLOTTED. 11/05/242304 Quintin R Cardenas. Performed By: #### L 100.0100 ####[facility] [address] [place], [address] Eosinophils/100 WBC (Bld) 0.6 % Normal 0-5 [facility] Comment on above: Order Comment: REDRA W. PREVIOUS SPECIMEN REJECTED DUE TOCLOTTED. 11/05/242304 Quintin R Cardenas. Performed By: #### L 100.0100 ####[facility] [address] [place], [address] Erythrocyte distribution width (RBC) [Ratio] 12.2 % Normal 11.6-14.6 [facility] Comment on above: Order Comment: REDRA W. PREVIOUS SPECIMEN REJECTED DUE TOCLOTTED. 11/05/242304 Quitnin R Cardenas. Performed By: #### L 100.0100 ####[facility] [address] [place], [place], [phone] Hematocrit (Bld) [Volume fraction] 32.9 % Low 40-54 [facility] Comment on above: Order Comment: REDRA W. PREVIOUS SPECIMEN REJECTED DUE TOCLOTTED. 11/05/242304 Quintin R Cardenas. Performed By: #### L 100.0100 ####[facility] [address] [place], [address] Hemoglobin (Bld) [Mass/Vol] 11.5 g/dL Low 13.0-16.5 [facility] Comment on above: Order Comment: REDRA W. PREVIOUS SPECIMEN REJECTED DUE TOCLOTTED. 11/05/242304 Quintin R Cardenas. Performed By: #### L 100.0100 ####[facility] [address] [place], [place], [phone] IG% 0.600 Normal 0.0-0.9 [facility] Comment on above: Order Comment: REDRA W. PREVIOUS SPECIMEN REJECTED DUE TOCLOTTED. 11/05/242304 Quintin R Cardenas. Result Comment: IG% - Immature Granulocytes (promyelocytes, myelocytes andmetamyelocytes) > 1% indicates that a LEFT SHIFT is Present. Performed By: #### L 100.0100 ####[facility] [address] [place], [address] Lymphocytes/100 WBC (Bld) 12.9 % Low 19-41 [facility] Comment on above: Order Comment: REDRA W. PREVIOUS SPECIMEN REJECTED DUE TOCLOTTED. 11/05/242304 Quintin R Cardenas. Performed By: #### L 100.0100 ####[facility] [address] [place], [address] MCH (RBC) [Entitic mass] 30.5 pg Normal 27.0-32.0 [facility] Comment on above: Order Comment: REDRA W. PREVIOUS SPECIMEN REJECTED DUE TOCLOTTED. 11/05/242304 Quintin R Cardenas. Performed By: #### L 100.0100 ####[facility] [address] [place], [address] MCHC (RBC) [Mass/Vol] 35.0 g/dL Normal 32-36 [facility] Comment on above: Order Comment: REDRA W. PREVIOUS SPECIMEN REJECTED DUE TOCLOTTED. 11/05/242304 Quintin R Cardenas. Performed By: #### L 100.0100 ####[facility] [address] [place], [address] MCV (RBC) [Entitic vol] 87.3 fL Normal 80-94 [facility] Comment on above: Order Comment: REDRA W. PREVIOUS SPECIMEN REJECTED DUE TOCLOTTED. 11/05/242304 Quintin R Cardenas. Performed By: #### L 100.0100 ####[facility] [address] [place], [address] Monocytes/100 WBC (Bld) 8.9 % Normal 0-10 [facility] Comment on above: Order Comment: REDRA W. PREVIOUS SPECIMEN REJECTED DUE TOCLOTTED. 11/05/242304 Quintin R Cardenas. Performed By: #### L 100.0100 ####[facility] [address] [place], [address] Neutrophils/100 WBC (Bld) 76.8 % High 47-70 [facility] Comment on above: Order Comment: REDRA W. PREVIOUS SPECIMEN REJECTED DUE TOCLOTTED. 11/05/242304 Quintin R Cardenas. Performed By: #### L 100.0100 ####[facility] [address] [place], [address] Nucleated RBC (Bld) [#/Vol] 0 10*3/uL Normal 0-5 [facility] Comment on above: Order Comment: REDRA W. PREVIOUS SPECIMEN REJECTED DUE TOCLOTTED. 11/05/242304 Quintin R Cardenas. Performed By: #### L 100.0100 ####[facility] [address] [place], [address] Platelet mean volume (Bld) [Entitic vol] 8.7 fL Normal 6.2-12.0 [facility] Comment on above: Order Comment: REDRA W. PREVIOUS SPECIMEN REJECTED DUE TOCLOTTED. 11/05/242304 Quintin R Cardenas. Performed By: #### L 100.0100 ####[facility] [address] [place], [address] Platelets (Bld) [#/Vol] 274 10*3/uL Normal 150-450 [facility] Comment on above: Order Comment: REDRA W. PREVIOUS SPECIMEN REJECTED DUE TOCLOTTED. 11/05/242304 Quintin R Cardenas. Performed By: #### L 100.0100 ####[facility] [address] [place], [address] RBC (Bld) [#/Vol] 3.77 10*6/uL Low 4.6-6.2 [facility] Comment on above: Order Comment: REDRA W. PREVIOUS SPECIMEN REJECTED DUE TOCLOTTED. 11/05/242304 Quintin R Cardenas. Performed By: #### L 100.0100 ####[facility] [address] [place], [address] RDW SD 39.0 fl Normal 35.1-43.9 [facility] Comment on above: Order Comment: REDRA W. PREVIOUS SPECIMEN REJECTED DUE TOCLOTTED. 11/05/242304 Quintin R Cardenas. Performed By: #### L 100.0100 ####[facility] [address] [place], [address] WBC (Bld) [#/Vol] 9.0 10*3/uL Normal 4.4-11.0 [facility] Comment on above: Order Comment: REDRA W. PREVIOUS SPECIMEN REJECTED DUE TOCLOTTED. 11/05/242304 Quintin R Cardenas. Performed By: #### L 100.0100 ####[facility] [address] [place], [address] Absolute Neut Normal 2.0-7.7 [facility] Comment on above: Result Comment: This specimen has been REJECTED due to Laboratory criteria:Clotted.CARGABRITE has been notified of need of recollection.11/05/242304 Quintin R Cardenas Performed By: #### M 100.7900, L300.4310, BTS, L503.6005, L500.2500, L100.0100, L300.3900 ####[facility] [address] [place], [address] HCT Normal 40-54 [facility] Comment on above: Result Comment: This specimen has been REJECTED due to Laboratory criteria:Clotted.CARGABRITE has been notified of need of recollection.11/05/242304 Quintin R Cardenas Performed By: #### M 100.7900, L300.4310, BTS, L503.6005, L500.2500, L100.0100, L300.3900 ####[facility] [address] [place], [address] HGB Normal 13.0-16.5 [facility] Comment on above: Result Comment: This specimen has been REJECTED due to Laboratory criteria:Clotted.CARGABRITE has been notified of need of recollection.11/05/242304 Quintin R Cardenas Performed By: #### M 100.7900, L300.4310, BTS, L503.6005, L500.2500, L100.0100, L300.3900 ####[facility] [address] [place], [address] MCH Normal 27.0-32.0 [facility] Comment on above: Result Comment: This specimen has been REJECTED due to Laboratory criteria:Clotted.CARGABRITE has been notified of need of recollection.11/05/242304 Quintin R Cardenas Performed By: #### M 100.7900, L300.4310, BTS, L503.6005, L500.2500, L100.0100, L300.3900 ####[facility] [address] [place], [address] MCHC Normal 32-36 [facility] Comment on above: Result Comment: This specimen has been REJECTED due to Laboratory criteria:Clotted.CARGABRITE has been notified of need of recollection.11/05/242304 Quintin R Cardenas Performed By: #### M 100.7900, L300.4310, BTS, L503.6005, L500.2500, L100.0100, L300.3900 ####[facility] [address] [place], [address] MCV Normal 80-94 [facility] Comment on above: Result Comment: This specimen has been REJECTED due to Laboratory criteria:Clotted.CARGABRITE has been notified of need of recollection.11/05/242304 Quintin R Cardenas Performed By: #### M 100.7900, L300.4310, BTS, L503.6005, L500.2500, L100.0100, L300.3900 ####[facility] [address] [place], [address] NEUT% Normal 47-70 [facility] Comment on above: Result Comment: This specimen has been REJECTED due to Laboratory criteria:Clotted.CARGABRITE has been notified of need of recollection.11/05/242304 Quintin R Cardenas Performed By: #### M 100.7900, L300.4310, BTS, L503.6005, L500.2500, L100.0100, L300.3900 ####[facility] [address] [place], [address] PLT Normal 150-450 [facility] Comment on above: Result Comment: This specimen has been REJECTED due to Laboratory criteria:Clotted.CARGABRITE has been notified of need of recollection.11/05/242304 Quintin R Cardenas Performed By: #### M 100.7900, L300.4310, BTS, L503.6005, L500.2500, L100.0100, L300.3900 ####[facility] [address] [place], [address] RBC Normal 4.6-6.2 [facility] Comment on above: Result Comment: This specimen has been REJECTED due to Laboratory criteria:Clotted.CARGABRITE has been notified of need of recollection.11/05/242304 Quintin R Cardenas Performed By: #### M 100.7900, L300.4310, BTS, L503.6005, L500.2500, L100.0100, L300.3900 ####[facility] [address] [place], [address] RDW CV Normal 11.6-14.6 [facility] Comment on above: Result Comment: This specimen has been REJECTED due to Laboratory criteria:Clotted.CARGABRITE has been notified of need of recollection.11/05/242304 Quintin R Cardenas Performed By: #### M 100.7900, L300.4310, BTS, L503.6005, L500.2500, L100.0100, L300.3900 ####[facility] [address] [place], [address] RDW SD Normal 35.1-43.9 [facility] Comment on above: Result Comment: This specimen has been REJECTED due to Laboratory criteria:Clotted.CARGABRITE has been notified of need of recollection.11/05/242304 Quintin R Cardenas Performed By: #### M 100.7900, L300.4310, BTS, L503.6005, L500.2500, L100.0100, L300.3900 ####[facility] [address] [place], [address] WBC Normal 4.4-11.0 [facility] Comment on above: Result Comment: This specimen has been REJECTED due to Laboratory criteria:Clotted.DEIRDRE has been notified of need of recollection.11/05/24 2305 Quintin Elkins Cardenas Performed By: #### M 100.7900, L300.4310, BTS, L503.6005, L500.2500, L100.0100, L300.3900 ####[facility] [address] [place], [address] CTA Abd/Pelvis W/WO Contrast on 11-05-2024 CTA Abd/Pelvis W/WO Contrast Normal [facility] Carbon dioxide, total [Moles /volume] in Central venous bloodOrdered By: Harrison Linares on 11-05-2024 CO2 [Moles/Vol] 23.8 mmol/L 21.0-32.0 [facility] Chloride assayOrdered By: Erica Linares on 11-05-2024 Chloride [Moles/Vol] 90 mmol/L Low 98-108 [facility] Eosinophil percentageOrdered By: Harrison Linares on 11-05-2024 Eosinophils/100 WBC (Bld) 0.6 % 0-5 [facility] Erythrocyte distribution wid th (RBC) [Ratio]Ordered By: Harrison Linares on 11-05-2024 Erythrocyte distribution width (RBC) [Entitic vol] 39.0 fL 35.1-43.9 [facility] Erythrocyte distribution wid th ratioOrdered By: Harrison Linares on 11-05-2024 Erythrocyte distribution width (RBC) [Ratio] 12.2 % 11.6-14.6 [facility] Estimation of creatinine dunia aranceOrdered By: Harrison Linares on 11-05-2024 Estimated Creatinine Clearance Calc 59.87 ml/min 50-250 [facility] GFR/1.73 sq M.predicted grgeg g non-blacks MDRD (S/P/Bld) [Vol rate/Area]Ordered By: Harrison Linares on 11-05-2024 Estimated GFR (MDRD) Non-Af Amer 84 >60 [facility] Comment on above: mL/min/1.73m2 CKD-EP I Creatinine Equation (2020) Hematocrit Auto (Bld) [Volum e fraction]Ordered By: Harrison Linares on 11-05-2024 Hematocrit (Bld) [Volume fraction] 32.9 % Low 40-54 [facility] Hemoglobin measurementOrdere d By: Harrison Linares on 11-05-2024 Hemoglobin (Bld) [Mass/Vol] 11.5 g/dL Low 13.0-16.5 [facility] Immature granulocytes/100 WB C Auto (Bld)Ordered By: Harrison Linares on 11-05-2024 Immature granulocytes/100 WBC (Bld) 0.600 % 0.0-0.9 [facility] Comment on above: IG% - Immature Granu locytes (promyelocytes, myelocytes and metamyelocytes) > 1% indicates that a LEFT SHIFT is Present. International normalized rat io (INR) calculationOrdered By: Harrison Linares on 11-05-2024 INR Coag (Bld) [Relative time] 0.9 {INR} [facility] Lactic Acidon 11-05-2024 Lactate [Moles/Vol] mmol/L Normal 0.0-2.0 [facility] Comment on above: Order Comment: Y Performed By: #### M 100.7900, L300.4310, BTS, L503.6005, L500.2500, L100.0100, L300.3900 ####[facility] [address] [place], [place], [id number] Lactic acid measurementOrder ed By: Harrison Linares on 11-05-2024 Lactate [Moles/Vol] mmol/L 0.0-2.0 [facility] Lower GI hemoglobin IA Ql (S tl)Ordered By: Harrison Linares on 11-05-2024 Stool Occult Blood (EDINSON) Positive Abnormal [facility] Lymphocytes Auto (Unsp spec) [#/Vol]Ordered By: Harrison Linares on 11-05-2024 Lymphocytes (Bld) [#/Vol] 1.16 10*3/uL 0.83-4.51 [facility] Lymphocytes/100 WBC Auto (Un sp spec)Ordered By: Harrison Linares on 11-05-2024 Lymphocytes/100 WBC (Bld) 12.9 % Low 19-41 [facility] MCV (mean corpuscular volume ) determinationOrdered By: Harrison Linares on 11-05-2024 MCV (RBC) [Entitic vol] 87.3 fL 80-94 [facility] Magnesium (Unsp spec) [Mass/ Vol]Ordered By: Darrel Sanders on 11-05-2024 Magnesium [Mass/Vol] 2.3 mg/dL High 1.5-2.2 [facility] Magnesium measurement (mass/ volume)Ordered By: Darrel Sanders on 11-05-2024 Magnesium (Unsp spec) [Mass/Vol] 2.3 mg/dL High 1.5-2.2 [facility] Mean corpuscular hemoglobin (MCH) determinationOrdered By: Harrison Linares on 11-05-2024 MCH (RBC) [Entitic mass] 30.5 pg 27.0-32.0 [facility] Mean corpuscular hemoglobin concentration (MCHC) determinationOrdered By: Harrison Linares on 11-05-2024 MCHC (RBC) [Mass/Vol] 35.0 g/dL 32-36 [facility] Mean platelet volume determi nationOrdered By: Harrison Linares on 11-05-2024 Platelet mean volume (Bld) [Entitic vol] 8.7 fL 6.2-12.0 [facility] Monocyte percentageOrdered B y: Harrison Linares on 11-05-2024 Monocytes/100 WBC (Bld) 8.9 % 0-10 [facility] Neutrophil percentageOrdered By: Harrison Linares on 11-05-2024 Neutrophils/100 WBC (Bld) 76.8 % High 47-70 [facility] Nucleated red blood cell per centageOrdered By: Harrison Linares on 11-05-2024 Nucleated RBC/100 WBC (Bld) [Ratio] 0 % 0-5 [facility] Partial Thromboplast Timeon 11-05-2024 aPTT Coag (Bld) [Time] 22.1 s Low 24.1-36.2 [facility] Comment on above: Performed By: #### M 100.7900, L300.4310, BTS, L503.6005, L500.2500, L100.0100, L300.3900 ####[facility] [address] [place], [place], [id number] Platelet countOrdered By: Erica Linares on 11-05-2024 Platelets (Bld) [#/Vol] 274 10*3/uL 150-450 [facility] Potassium (Unsp spec) [Mass/ Vol]Ordered By: Harrison Linares on 11-05-2024 Potassium [Moles/Vol] 4.0 mmol/L 3.3-5.1 [facility] Prothrombin Time w/INRon INR Coag (PPP) [Relative time] 0.9 {INR} Normal [facility] Comment on above: Performed By: #### M 100.7900, L300.4310, BTS, L503.6005, L500.2500, L100.0100, L300.3900 ####[facility] [address] [place], [address] PT Coag (PPP) [Time] 12.2 s Normal 11.7-14.9 [facility] Comment on above: Performed By: #### M 100.7900, L300.4310, BTS, L503.6005, L500.2500, L100.0100, L300.3900 ####[facility] [address] [place], [place], [phone] Prothrombin timeOrdered By: Harrison Linares on 11-05-2024 PT Coag (PPP) [Time] 12.2 s 11.7-14.9 [facility] RBC Auto (Bld) [#/Vol]Ordere d By: Harrison Linares on 11-05-2024 RBC (Bld) [#/Vol] 3.77 10*6/uL Low 4.6-6.2 [facility] Serum creatinine measurement (mass/volume)Ordered By: Harrison Linares on 11-05-2024 Creatinine [Mass/Vol] 0.92 mg/dL 0.70-1.20 [facility] Serum glucose measurement (m ass/volume)Ordered By: Harrison Linares on 11-05-2024 Glucose [Mass/Vol] 110 mg/dL High 70-99 [facility] Serum or plasma calcium shagufta urement (mass/volume)Ordered By: Harrison Linares on 11-05-2024 Calcium [Mass/Vol] 9.0 mg/dL 7.6-11.0 [facility] Serum or plasma urea nitroge n measurement (mass/volume)Ordered By: Harrison Linares on 11-05-2024 Urea nitrogen [Mass/Vol] 14 mg/dL 4-19 [facility] Sodium levelOrdered By: Dylan Linares on 11-05-2024 Sodium [Moles/Vol] 126 mmol/L Low 133-145 [facility] Stool gastrointestinal hemog lobin detection by immunologic methodOrdered By: Harrison Linares on 11-05-2024 Lower GI hemoglobin IA Ql (Stl) Positive Abnormal [facility] Type AND Screenon 11-05-2024 ABO and Rh group Nom (Bld) Blood group O Rh(D) positive Normal [facility] Comment on above: Order Comment: HGI Performed By: #### M 100.7900, L300.4310, BTS, L503.6005, L500.2500, L100.0100, L300.3900 ####[facility] [address] [place], [address] White blood cell (WBC) count Ordered By: Harrison Linares on 11-05-2024 WBC (Bld) [#/Vol] 9.0 10*3/uL 4.4-11.0 [facility] aPTT Coag (PPP) [Time]Ordere d By: Harrison Linares on 11-05-2024 aPTT Coag (Bld) [Time] 22.1 s Low 24.1-36.2 [facility] CNPNon 11-02-2024 CNPN Telephone (HEMCity Chattr) -- SEGUNDOJARED Rodrigues ([id number]) 1945 M Date Time Provider Department 11/02/24 PAPI HERNANDEZ During your visit today, we recorded the following information about you: Filomena Rodrigues 11/02/2024 2:33 PM Signed Patient and his daughter stopped in to talk to Jolynn Frias. 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 Please call patients daughter Teresa [phone] Allergies As of Date: 11/02/2024 (No Known Allergies) Date Reviewed: 05/05/2020 Reviewed by: Caro Mo (Rn), RN - Fully Assessed Reason for Visit: Patient Question [7857] Prescriptions as of 01/12/2025 - amLODIPine (NORVASC) [...] of Hemorrhage [*03/23/2010 Coronary artery disease involving [place]*07/18/2019 History of varicose veins [Z86.79] 07/18/2019 Chest pain, unspecified [R07.9] 07/18/2019 History of CVA (cerebrovascular accident) [Z86.*07/18/2019 Discharge planning issues [Z75.8] 07/18/2019 Preop testing [Z01.818] 07/18/2019 On mechanically assisted ventilation (HCC) [Z99*07/19/2019 07/20/2019 Pain, postoperative, acute [G89.18] 07/19/2019 Stress hyperglycemia [R73.9] 07/19/2019 07/21/2019 Atelectasis [J98.11] 07/20/2019 Transition of care performed with sharing of cl*07/21/2019 Encounter Status:Closed by FILOMENA RODRIGUES on 01/12/25 Normal [facility] Oncology Visit Reporton 04-0 Oncology Visit Report Normal [facility] Carcinoembryonic Antigenon 0 - CEA 25.2 ng/mL High 0.0-4.7 [facility] Comment on above: Order Comment: ADD O N TO BW-ALREADY IN LAB Result Comment: Nons mokers <3.9 Smokers <5.6[employer] Electrochemiluminescence Immunoassay(ECLIA)Values obtained with different assay methods or kitscannot be used interchangeably. Results cannot beinterpreted as absolute evidence of the presence orabsence of malignant disease.Performed at: [address] [id number] Director: Jian Paredes PhD, Phone: [phone] Performed By: #### L 3100.2300 ####[facility] [address] [place], [address] Abdomen/Pelvis W IV Cont ONL Yon 10-24-2024 Abdomen/Pelvis W IV Cont ONLY Normal [facility] Absolute lymphocyte countOrd ered By: Jerry Hightower on 10-24-2024 Lymphocytes Auto (Unsp spec) [#/Vol] 1.10 10*3/uL 0.83-4.51 [facility] Absolute lymphocyte countOrd ered By: Papi Hernandez on 10-24-2024 Lymphocytes Auto (Unsp spec) [#/Vol] 1.26 10*3/uL 0.83-4.51 [facility] Absolute neutrophil countOrd ered By: Jerry Hightower on 10-24-2024 Neutrophils (Bld) [#/Vol] 6.7 10*3/uL 2.0-7.7 [facility] Absolute neutrophil countOrd ered By: Papi Hernandez on 03-26-2025 Neutrophils (Bld) [#/Vol] 6.5 10*3/uL 2.0-7.7 [facility] Anion gap in Serum or Plasma Ordered By: Jerry Hightower on 10-24-2024 Anion gap [Moles/Vol] 11 mmol/L 12-13 [facility] Anion gap in Serum or Plasma Ordered By: Papi Hernandez on 10-24-2024 Anion gap [Moles/Vol] 9 mmol/L 12-13 [facility] Automated lymphocyte count a s percentage of total leukocytesOrdered By: Jerry Hightower on 10-24-2024 Lymphocytes/100 WBC Auto (Unsp spec) 12.7 % Low [facility] Automated lymphocyte count a s percentage of total leukocytesOrdered By: Papi Hernandez on 10-24-2024 Lymphocytes/100 WBC Auto (Unsp spec) 14.4 % Low [facility] BUN/creatinine ratioOrdered By: Jerry Hightower on 10-24-2024 Urea nitrogen/Creatinine [Mass ratio] 11.6 mg/mg 05-20 [facility] BUN/creatinine ratioOrdered By: Papi Hernandez on 10-24-2024 Urea nitrogen/Creatinine [Mass ratio] 12.0 mg/mg 05-20 [facility] Basophil percentageOrdered B y: Jerry Hightower on 10-24-2024 Basophils/100 WBC (Bld) 0.3 % 0-1 [facility] Basophil percentageOrdered B y: Papi Hernandez on 10-24-2024 Basophils/100 WBC (Bld) 0.3 % 0-1 [facility] Bilirubin Test strip Ql (U)O rdered By: Jerry Hightower on 10-24-2024 Bilirubin Ql (U) Negative Negative [facility] Bilirubin, totalOrdered By: Jerry Hightower on 10-24-2024 Bilirubin [Mass/Vol] 0.55 mg/dL 0.00-1.30 [facility] Bilirubin, totalOrdered By: Papi Hernandez on 10-24-2024 Bilirubin [Mass/Vol] 0.50 mg/dL 0.00-1.30 [facility] CBC W/Diff, Automatedon 09-30 Absolute Lymph 1.10 X10 3/uL Normal 0.83-4.51 [facility] Comment on above: Performed By: #### L 500.4050, L501.2450, L100.0100, L503.6005 ####[facility] [address] [place], [address] Absolute Neut 6.7 X10 3/uL Normal 2.0-7.7 [facility] Comment on above: Performed By: #### L 500.4050, L501.2450, L100.0100, L503.6005 ####[facility] [address] [place], [address] Basophils/100 WBC (Bld) 0.3 % Normal 0-1 [facility] Comment on above: Performed By: #### L 500.4050, L501.2450, L100.0100, L503.6005 ####[facility] [address] [place], [address] Eosinophils/100 WBC (Bld) 1.0 % Normal 0-5 [facility] Comment on above: Performed By: #### L 500.4050, L501.2450, L100.0100, L503.6005 ####[facility] [address] [place], [address] Erythrocyte distribution width (RBC) [Ratio] 12.4 % Normal 11.6-14.6 [facility] Comment on above: Performed By: #### L 500.4050, L501.2450, L100.0100, L503.6005 ####[facility] [address] [place], [address] Hematocrit (Bld) [Volume fraction] 37.0 % Low 40-54 [facility] Comment on above: Performed By: #### L 500.4050, L501.2450, L100.0100, L503.6005 ####[facility] [address] [place], [address] Hemoglobin (Bld) [Mass/Vol] 13.1 g/dL Normal 13.0-16.5 [facility] Comment on above: Performed By: #### L 500.4050, L501.2450, L100.0100, L503.6005 ####[facility] [address] [place], [address] IG% 0.500 Normal 0.0-0.9 [facility] Comment on above: Result Comment: IG% - Immature Granulocytes (promyelocytes, myelocytes andmetamyelocytes) > 1% indicates that a LEFT SHIFT is Present. Performed By: #### L 500.4050, L501.2450, L100.0100, L503.6005 ####[facility] [address] [place], [address] Lymphocytes/100 WBC (Bld) 12.7 % Low 19-41 [facility] Comment on above: Performed By: #### L 500.4050, L501.2450, L100.0100, L503.6005 ####[facility] [address] [place], [address] MCH (RBC) [Entitic mass] 30.8 pg Normal 27.0-32.0 [facility] Comment on above: Performed By: #### L 500.4050, L501.2450, L100.0100, L503.6005 ####[facility] [address] [place], [address] MCHC (RBC) [Mass/Vol] 35.4 g/dL Normal 32-36 [facility] Comment on above: Performed By: #### L 500.4050, L501.2450, L100.0100, L503.6005 ####[facility] [address] [place], [address] MCV (RBC) [Entitic vol] 87.1 fL Normal 80-94 [facility] Comment on above: Performed By: #### L 500.4050, L501.2450, L100.0100, L503.6005 ####[facility] [address] [place], [address] Monocytes/100 WBC (Bld) 8.4 % Normal 0-10 [facility] Comment on above: Performed By: #### L 500.4050, L501.2450, L100.0100, L503.6005 ####[facility] [address] [place], [address] Neutrophils/100 WBC (Bld) 77.1 % High 47-70 [facility] Comment on above: Performed By: #### L 500.4050, L501.2450, L100.0100, L503.6005 ####[facility] [address] [place], [address] Nucleated RBC (Bld) [#/Vol] 0 10*3/uL Normal 0-5 [facility] Comment on above: Performed By: #### L 500.4050, L501.2450, L100.0100, L503.6005 ####[facility] [address] [place], [address] Platelet mean volume (Bld) [Entitic vol] 9.0 fL Normal 6.2-12.0 [facility] Comment on above: Performed By: #### L 500.4050, L501.2450, L100.0100, L503.6005 ####[facility] [address] [place], [address] Platelets (Bld) [#/Vol] 307 10*3/uL Normal 150-450 [facility] Comment on above: Performed By: #### L 500.4050, L501.2450, L100.0100, L503.6005 ####[facility] [address] [place], [address] RBC (Bld) [#/Vol] 4.25 10*6/uL Low 4.6-6.2 [facility] Comment on above: Performed By: #### L 500.4050, L501.2450, L100.0100, L503.6005 ####[facility] [address] [place], [address] RDW SD 39.6 fl Normal 35.1-43.9 [facility] Comment on above: Performed By: #### L 500.4050, L501.2450, L100.0100, L503.6005 ####[facility] [address] [place], [address] WBC (Bld) [#/Vol] 8.7 10*3/uL Normal 4.4-11.0 [facility] Comment on above: Performed By: #### L 500.4050, L501.2450, L100.0100, L503.6005 ####[facility] [address] [place], [address] Absolute Lymph 1.26 X10 3/uL Normal 0.83-4.51 [facility] Comment on above: Performed By: #### L 900.0098, L504.2610, L100.0100, L500.4050 ####[facility] [address] [place], [address] Absolute Neut 6.5 X10 3/uL Normal 2.0-7.7 [facility] Comment on above: Performed By: #### L 900.0098, L504.2610, L100.0100, L500.4050 ####[facility] [address] [place], [address] Basophils/100 WBC (Bld) 0.3 % Normal 0-1 [facility] Comment on above: Performed By: #### L 900.0098, L504.2610, L100.0100, L500.4050 ####[facility] [address] [place], [address] Eosinophils/100 WBC (Bld) 1.6 % Normal 0-5 [facility] Comment on above: Performed By: #### L 900.0098, L504.2610, L100.0100, L500.4050 ####[facility] [address] [place], [address] Erythrocyte distribution width (RBC) [Ratio] 12.5 % Normal 11.6-14.6 [facility] Comment on above: Performed By: #### L 900.0098, L504.2610, L100.0100, L500.4050 ####[facility] [address] [place], [address] Hematocrit (Bld) [Volume fraction] 38.0 % Low 40-54 [facility] Comment on above: Performed By: #### L 900.0098, L504.2610, L100.0100, L500.4050 ####[facility] [address] [place], [address] Hemoglobin (Bld) [Mass/Vol] 13.2 g/dL Normal 13.0-16.5 [facility] Comment on above: Performed By: #### L 900.0098, L504.2610, L100.0100, L500.4050 ####[facility] [address] [place], [address] IG% 0.200 Normal 0.0-0.9 [facility] Comment on above: Result Comment: IG% - Immature Granulocytes (promyelocytes, myelocytes andmetamyelocytes) > 1% indicates that a LEFT SHIFT is Present. Performed By: #### L 900.0098, L504.2610, L100.0100, L500.4050 ####[facility] [address] [place], [address] Lymphocytes/100 WBC (Bld) 14.4 % Low 19-41 [facility] Comment on above: Performed By: #### L 900.0098, L504.2610, L100.0100, L500.4050 ####[facility] [address] [place], [address] MCH (RBC) [Entitic mass] 30.8 pg Normal 27.0-32.0 [facility] Comment on above: Performed By: #### L 900.0098, L504.2610, L100.0100, L500.4050 ####[facility] [address] [place], [address] MCHC (RBC) [Mass/Vol] 34.7 g/dL Normal 32-36 [facility] Comment on above: Performed By: #### L 900.0098, L504.2610, L100.0100, L500.4050 ####[facility] [address] [place], [address] MCV (RBC) [Entitic vol] 88.8 fL Normal 80-94 [facility] Comment on above: Performed By: #### L 900.0098, L504.2610, L100.0100, L500.4050 ####[facility] [address] [place], [address] Monocytes/100 WBC (Bld) 9.7 % Normal 0-10 [facility] Comment on above: Performed By: #### L 900.0098, L504.2610, L100.0100, L500.4050 ####[facility] [address] [place], [address] Neutrophils/100 WBC (Bld) 73.8 % High 47-70 [facility] Comment on above: Performed By: #### L 900.0098, L504.2610, L100.0100, L500.4050 ####[facility] [address] [place], [address] Nucleated RBC (Bld) [#/Vol] 0 10*3/uL Normal 0-5 [facility] Comment on above: Performed By: #### L 900.0098, L504.2610, L100.0100, L500.4050 ####[facility] [address] [place], [address] Platelet mean volume (Bld) [Entitic vol] 8.8 fL Normal 6.2-12.0 [facility] Comment on above: Performed By: #### L 900.0098, L504.2610, L100.0100, L500.4050 ####[facility] [address] [place], [address] Platelets (Bld) [#/Vol] 299 10*3/uL Normal 150-450 [facility] Comment on above: Performed By: #### L 900.0098, L504.2610, L100.0100, L500.4050 ####[facility] [address] [place], [address] RBC (Bld) [#/Vol] 4.28 10*6/uL Low 4.6-6.2 [facility] Comment on above: Performed By: #### L 900.0098, L504.2610, L100.0100, L500.4050 ####[facility] [address] [place], [address] RDW SD 40.6 fl Normal 35.1-43.9 [facility] Comment on above: Performed By: #### L 900.0098, L504.2610, L100.0100, L500.4050 ####[facility] [address] [place], [address] WBC (Bld) [#/Vol] 8.8 10*3/uL Normal 4.4-11.0 [facility] Comment on above: Performed By: #### L 900.0098, L504.2610, L100.0100, L500.4050 ####[facility] [address] [place], [address] Carbon dioxide, total [Moles /volume] in Central venous bloodOrdered By: Jerry Hightower on 10-24-2024 CO2 [Moles/Vol] 26.7 mmol/L 21.0-32.0 [facility] Carbon dioxide, total [Moles /volume] in Central venous bloodOrdered By: Papi Hernandez on 10-24-2024 CO2 [Moles/Vol] 26.7 mmol/L 21.0-32.0 [facility] Chloride assayOrdered By: Avinash Hightower on 10-24-2024 Chloride [Moles/Vol] 92 mmol/L Low 98-108 [facility] Chloride assayOrdered By: Santa Hernandez on 10-24-2024 Chloride [Moles/Vol] 94 mmol/L Low 98-108 [facility] Comprehensive Metabolic Prof ilon 10-24-2024 Albumin [Mass/Vol] 4.3 g/dL Normal 3.4-4.8 [facility] Comment on above: Performed By: #### L 500.4050, L501.2450, L100.0100, L503.6005 ####[facility] [address] [place], [address] Albumin/Globulin [Mass ratio] 1.4 {ratio} Normal 0.9-2.4 [facility] Comment on above: Performed By: #### L 500.4050, L501.2450, L100.0100, L503.6005 ####[facility] [address] [place], [address] ALK PHOS 103 U/L Normal 40-129 [facility] Comment on above: Performed By: #### L 500.4050, L501.2450, L100.0100, L503.6005 ####[facility] [address] [place], [address] ALT [Catalytic activity/Vol] 17 U/L Normal <=46 [facility] Comment on above: Performed By: #### L 500.4050, L501.2450, L100.0100, L503.6005 ####[facility] [address] [place], [address] AST [Catalytic activity/Vol] 27 U/L Normal <=37 [facility] Comment on above: Performed By: #### L 500.4050, L501.2450, L100.0100, L503.6005 ####[facility] [address] [place], [address] Bilirubin [Mass/Vol] 0.55 mg/dL Normal 0.00-1.30 [facility] Comment on above: Performed By: #### L 500.4050, L501.2450, L100.0100, L503.6005 ####[facility] [address] [place], [address] BUN/CRE 11.6 RATIO Normal 10-20 [facility] Comment on above: Performed By: #### L 500.4050, L501.2450, L100.0100, L503.6005 ####[facility] [address] [place], [address] Calcium [Mass/Vol] 9.2 mg/dL Normal 7.6-11.0 [facility] Comment on above: Performed By: #### L 500.4050, L501.2450, L100.0100, L503.6005 ####[facility] [address] [place], [address] Chloride [Moles/Vol] 92 mmol/L Low 98-108 [facility] Comment on above: Performed By: #### L 500.4050, L501.2450, L100.0100, L503.6005 ####[facility] [address] [place], [address] CO2 [Moles/Vol] 26.7 mmol/L Normal 21.0-32.0 [facility] Comment on above: Performed By: #### L 500.4050, L501.2450, L100.0100, L503.6005 ####[facility] [address] [place], [address] Creatinine [Mass/Vol] 0.94 mg/dL Normal 0.70-1.20 [facility] Comment on above: Performed By: #### L 500.4050, L501.2450, L100.0100, L503.6005 ####[facility] [address] [place], [address] ECRCL 56.56 ml/min Normal 50-250 [facility] Comment on above: Performed By: #### L 500.4050, L501.2450, L100.0100, L503.6005 ####[facility] [address] [place], [address] GAP 11 Normal 5-15 [facility] Comment on above: Performed By: #### L 500.4050, L501.2450, L100.0100, L503.6005 ####[facility] [address] [place], [address] GFR/1.73 sq M.predicted among non-blacks MDRD (S/P/Bld) [Vol rate/Area] 82 mL/min/{1.73_m2} Normal >60 [facility] Comment on above: Result Comment: mL/m in/1.73m2 CKD-EPI Creatinine Equation (2020) Performed By: #### L 500.4050, L501.2450, L100.0100, L503.6005 ####[facility] [address] [place], [address] Globulin (S) [Mass/Vol] 3.0 g/dL Normal 2.2-4.2 [facility] Comment on above: Performed By: #### L 500.4050, L501.2450, L100.0100, L503.6005 ####[facility] [address] [place], [address] Glucose [Mass/Vol] 105 mg/dL High 70-99 [facility] Comment on above: Performed By: #### L 500.4050, L501.2450, L100.0100, L503.6005 ####[facility] [address] [place], [address] Potassium [Moles/Vol] 3.8 mmol/L Normal 3.3-5.1 [facility] Comment on above: Performed By: #### L 500.4050, L501.2450, L100.0100, L503.6005 ####[facility] [address] [place], [address] Sodium [Moles/Vol] 130 mmol/L Low 133-145 [facility] Comment on above: Performed By: #### L 500.4050, L501.2450, L100.0100, L503.6005 ####[facility] [address] [place], [address] T PROT 7.3 g/dL Normal 5.9-8.4 [facility] Comment on above: Performed By: #### L 500.4050, L501.2450, L100.0100, L503.6005 ####[facility] [address] [place], [address] Urea nitrogen [Mass/Vol] 11 mg/dL Normal 4-19 [facility] Comment on above: Performed By: #### L 500.4050, L501.2450, L100.0100, L503.6005 ####[facility] [address] [place], [address] Albumin [Mass/Vol] 4.2 g/dL Normal 3.4-4.8 [facility] Comment on above: Performed By: #### L 900.0098, L504.2610, L100.0100, L500.4050 ####[facility] [address] [place], [address] Albumin/Globulin [Mass ratio] 1.4 {ratio} Normal 0.9-2.4 [facility] Comment on above: Performed By: #### L 900.0098, L504.2610, L100.0100, L500.4050 ####[facility] [address] [place], [address] ALK PHOS 100 U/L Normal 40-129 [facility] Comment on above: Performed By: #### L 900.0098, L504.2610, L100.0100, L500.4050 ####[facility] [address] [place], [address] ALT [Catalytic activity/Vol] 16 U/L Normal <=46 [facility] Comment on above: Performed By: #### L 900.0098, L504.2610, L100.0100, L500.4050 ####[facility] [address] [place], [address] AST [Catalytic activity/Vol] 27 U/L Normal <=37 [facility] Comment on above: Performed By: #### L 900.0098, L504.2610, L100.0100, L500.4050 ####[facility] [address] [place], [address] Bilirubin [Mass/Vol] 0.50 mg/dL Normal 0.00-1.30 [facility] Comment on above: Performed By: #### L 900.0098, L504.2610, L100.0100, L500.4050 ####[facility] [address] [place], [address] BUN/CRE 12.0 RATIO Normal 10-20 [facility] Comment on above: Performed By: #### L 900.0098, L504.2610, L100.0100, L500.4050 ####[facility] [address] [place], [address] Calcium [Mass/Vol] 9.2 mg/dL Normal 7.6-11.0 [facility] Comment on above: Performed By: #### L 900.0098, L504.2610, L100.0100, L500.4050 ####[facility] [address] [place], [address] Chloride [Moles/Vol] 94 mmol/L Low 98-108 [facility] Comment on above: Performed By: #### L 900.0098, L504.2610, L100.0100, L500.4050 ####[facility] [address] [place], [address] CO2 [Moles/Vol] 26.7 mmol/L Normal 21.0-32.0 [facility] Comment on above: Performed By: #### L 900.0098, L504.2610, L100.0100, L500.4050 ####[facility] [address] [place], [address] Creatinine [Mass/Vol] 0.90 mg/dL Normal 0.70-1.20 [facility] Comment on above: Performed By: #### L 900.0098, L504.2610, L100.0100, L500.4050 ####[facility] [address] [place], [address] ECRCL 61.20 ml/min Normal 50-250 [facility] Comment on above: Performed By: #### L 900.0098, L504.2610, L100.0100, L500.4050 ####[facility] [address] [place], [address] GAP 9 Normal 5-15 [facility] Comment on above: Performed By: #### L 900.0098, L504.2610, L100.0100, L500.4050 ####[facility] [address] [place], [address] GFR/1.73 sq M.predicted among non-blacks MDRD (S/P/Bld) [Vol rate/Area] 86 mL/min/{1.73_m2} Normal >60 [facility] Comment on above: Result Comment: mL/m in/1.73m2 CKD-EPI Creatinine Equation (2020) Performed By: #### L 900.0098, L504.2610, L100.0100, L500.4050 ####[facility] [address] [place], [address] Globulin (S) [Mass/Vol] 2.9 g/dL Normal 2.2-4.2 [facility] Comment on above: Performed By: #### L 900.0098, L504.2610, L100.0100, L500.4050 ####[facility] [address] [place], [address] Glucose [Mass/Vol] 107 mg/dL High 70-99 [facility] Comment on above: Performed By: #### L 900.0098, L504.2610, L100.0100, L500.4050 ####[facility] [address] [place], [address] Potassium [Moles/Vol] 4.2 mmol/L Normal 3.3-5.1 [facility] Comment on above: Performed By: #### L 900.0098, L504.2610, L100.0100, L500.4050 ####[facility] [address] [place], [address] Sodium [Moles/Vol] 131 mmol/L Low 133-145 [facility] Comment on above: Performed By: #### L 900.0098, L504.2610, L100.0100, L500.4050 ####[facility] [address] [place], [address] T PROT 7.0 g/dL Normal 5.9-8.4 [facility] Comment on above: Performed By: #### L 900.0098, L504.2610, L100.0100, L500.4050 ####[facility] [address] [place], [address] Urea nitrogen [Mass/Vol] 11 mg/dL Normal 4-19 [facility] Comment on above: Performed By: #### L 900.0098, L504.2610, L100.0100, L500.4050 ####[facility] [address] [place], [address] Emergency Department Summary on 10-24-2024 Emergency Department Summary Normal [facility] Eosinophil percentageOrdered By: Jerry Hightower on 10-24-2024 Eosinophils/100 WBC (Bld) 1.0 % 0-5 [facility] Eosinophil percentageOrdered By: Papi Hernandez on 10-24-2024 Eosinophils/100 WBC (Bld) 1.6 % 0-5 [facility] Epithelial cells.squamous LM Ql (Urine sed)Ordered By: Jerry Hightower on 10-24-2024 Epithelial cells.squamous LM.HPF (Urine sed) [#/Area] 0 /[HPF] 0-5 [facility] Erythrocyte distribution wid th ratioOrdered By: Jerry Hightower on 10-24-2024 Erythrocyte distribution width (RBC) [Ratio] 12.4 % 11.6-14.6 [facility] Erythrocyte distribution wid th ratioOrdered By: Papi Hernandez on 10-24-2024 Erythrocyte distribution width (RBC) [Ratio] 12.5 % 11.6-14.6 [facility] Erythrocyte distribution wid th standard deviationOrdered By: Jerry Hightower on 10-24-2024 Erythrocyte distribution width (RBC) [Entitic vol] 39.6 fL 35.1-43.9 [facility] Erythrocyte distribution width (RBC) [Ratio] 39.6 fl 35.1-43.9 [facility] Erythrocyte distribution wid th standard deviationOrdered By: Paip Hernandez on 10-24-2024 Erythrocyte distribution width (RBC) [Entitic vol] 40.6 fL 35.1-43.9 [facility] Erythrocyte distribution width (RBC) [Ratio] 40.6 fl 35.1-43.9 [facility] Estimation of creatinine dunia aranceOrdered By: Jerry Hightower on 10-24-2024 Estimated Creatinine Clearance Calc 56.56 ml/min 50-250 [facility] Estimation of creatinine dunia aranceOrdered By: Papi Hernandez on 10-24-2024 Estimated Creatinine Clearance Calc 61.20 ml/min 50-250 [facility] GFR/1.73 sq M.predicted gregg g non-blacks MDRD (S/P/Bld) [Vol rate/Area]Ordered By: Jerry Hightower on 10-24-2024 Estimated GFR (MDRD) Non-Af Amer 82 >60 [facility] Comment on above: mL/min/1.73m2 CKD-EP I Creatinine Equation (2020) GFR/1.73 sq M.predicted gregg g non-blacks MDRD (S/P/Bld) [Vol rate/Area]Ordered By: Papi Hernandez on 10-24-2024 Estimated GFR (MDRD) Non-Af Amer 86 >60 [facility] Comment on above: mL/min/1.73m2 CKD-EP I Creatinine Equation (2020) Glomerular filtration rate ( GFR) estimation/1.73 sq m using serum, plasma, or whole bOrdered By: Jerry Hightower on 10-24-2024 GFR/1.73 sq M.predicted among non-blacks MDRD (S/P/Bld) [Vol rate/Area] 82 mL/min/{1.73_m2} >60 [facility] Comment on above: mL/min/1.73m2 CKD-EP I Creatinine Equation (2020) Glomerular filtration rate ( GFR) estimation/1.73 sq m using serum, plasma, or whole bOrdered By: Papi Hernandez on 10-24-2024 GFR/1.73 sq M.predicted among non-blacks MDRD (S/P/Bld) [Vol rate/Area] 86 mL/min/{1.73_m2} >60 [facility] Comment on above: mL/min/1.73m2 CKD-EP I Creatinine Equation (2020) Glucose Ql (U)Ordered By: Avinash Hightower on 10-24-2024 Urine Glucose (UA) Normal mg/dl Normal [facility] Hematocrit Auto (Bld) [Volum e fraction]Ordered By: Jerry Hightower on 10-24-2024 Hematocrit (Bld) [Volume fraction] 37.0 % Low 40-54 [facility] Hematocrit Auto (Bld) [Volum e fraction]Ordered By: Papi Hernandez on 10-24-2024 Hematocrit (Bld) [Volume fraction] 38.0 % Low 40-54 [facility] Hemoglobin measurementOrdere d By: Jerry Hightower on 10-24-2024 Hemoglobin (Bld) [Mass/Vol] 13.1 g/dL 13.0-16.5 [facility] Hemoglobin measurementOrdere d By: Papi Hernandez on 10-24-2024 Hemoglobin (Bld) [Mass/Vol] 13.2 g/dL 13.0-16.5 [facility] Immature granulocytes/100 WB C Auto (Bld)Ordered By: Jerry Hightower on 10-24-2024 Immature granulocytes/100 WBC (Bld) 0.500 % 0.0-0.9 [facility] Comment on above: IG% - Immature Granu locytes (promyelocytes, myelocytes and metamyelocytes) > 1% indicates that a LEFT SHIFT is Present. Immature granulocytes/100 WB C Auto (Bld)Ordered By: Papi Hernandez on 10-24-2024 Immature granulocytes/100 WBC (Bld) 0.200 % 0.0-0.9 [facility] Comment on above: IG% - Immature Granu locytes (promyelocytes, myelocytes and metamyelocytes) > 1% indicates that a LEFT SHIFT is Present. Ketones Test strip Ql (U)Ord ered By: Jerry Hightower on 10-24-2024 Ketones Ql (U) Negative Negative [facility] LDHon 10-24-2024 LDH 105 U/L Normal 87-241 [facility] Comment on above: Order Comment: 1 Performed By: #### L 900.0098, L504.2610, L100.0100, L500.4050 ####[facility] [address] [place], [place], [address] Laboratory - Chemistry and C hemistry - challengeOrdered By: Jerry Hightower on 10-24-2024 AST [Catalytic activity/Vol] 27 U/L <38 [facility] Laboratory - Chemistry and C hemistry - challengeOrdered By: Papi Hernandez on 10-24-2024 AST [Catalytic activity/Vol] 27 U/L <38 [facility] Lactate dehydrogenase (LDH) measurementOrdered By: Papi Hernandez on 10-24-2024 LDH [Catalytic activity/Vol] 105 U/L 87-241 [facility] Lactic Acidon 10-24-2024 Lactate [Moles/Vol] 1.1 mmol/L Normal 0.0-2.0 [facility] Comment on above: Order Comment: Y Performed By: #### L 500.4050, L501.2450, L100.0100, L503.6005 ####[facility] [address] [place], [place], [address] Lactic acid measurementOrder ed By: Jerry Hightower on 10-24-2024 Lactate [Moles/Vol] 1.1 mmol/L 0.0-2.0 [facility] Lipaseon 10-24-2024 Lipase [Catalytic activity/Vol] 28 U/L Normal 13-75 [facility] Comment on above: Result Comment: Debi vieyra note:LIPASE revised reference range effective 22.New Lipase methodology. Expected to produce lower valuesthan the previous assay method.NEW Reference Range: 13 - 75 U/L Performed By: #### L 500.4050, L501.2450, L100.0100, L503.6005 ####[facility] [address] [place], [address] Lipase measurementOrdered By : Jerry Hightower on 10-24-2024 Lipase [Catalytic activity/Vol] 28 U/L 13-75 [facility] Comment on above: Please note:LIPASE r evised reference range effective 22. New Lipase methodology. Expected to produce lower values than the previous assay method. NEW Reference Range: 13 - 75 U/L Lymphocytes Auto (Unsp spec) [#/Vol]Ordered By: Jerry Hightower on 10-24-2024 Lymphocytes (Bld) [#/Vol] 1.10 10*3/uL 0.83-4.51 [facility] Lymphocytes Auto (Unsp spec) [#/Vol]Ordered By: Papi Hernandez on 10-24-2024 Lymphocytes (Bld) [#/Vol] 1.26 10*3/uL 0.83-4.51 [facility] Lymphocytes/100 WBC Auto (Un sp spec)Ordered By: Jerry Hightower on 10-24-2024 Lymphocytes/100 WBC (Bld) 12.7 % Low 19-41 [facility] Lymphocytes/100 WBC Auto (Un sp spec)Ordered By: Papi Hernandez on 10-24-2024 Lymphocytes/100 WBC (Bld) 14.4 % Low 19-41 [facility] MCV (mean corpuscular volume ) determinationOrdered By: Jerry Hightower on 10-24-2024 MCV (RBC) [Entitic vol] 87.1 fL 80-94 [facility] MCV (mean corpuscular volume ) determinationOrdered By: Papi Hernandez on 10-24-2024 MCV (RBC) [Entitic vol] 88.8 fL 80-94 [facility] Mean corpuscular hemoglobin (MCH) determinationOrdered By: Jerry Hightower on 10-24-2024 MCH (RBC) [Entitic mass] 30.8 pg 27.0-32.0 [facility] Mean corpuscular hemoglobin (MCH) determinationOrdered By: Papi Hernandez on 10-24-2024 MCH (RBC) [Entitic mass] 30.8 pg 27.0-32.0 [facility] Mean corpuscular hemoglobin concentration (MCHC) determinationOrdered By: Jerry Hightower on 10-24-2024 MCHC (RBC) [Mass/Vol] 35.4 g/dL [facility] Mean corpuscular hemoglobin concentration (MCHC) determinationOrdered By: Papi Hernandez on 10-24-2024 MCHC (RBC) [Mass/Vol] 34.7 g/dL [facility] Mean platelet volume determi nationOrdered By: Jerry Hightower on 10-24-2024 Platelet mean volume (Bld) [Entitic vol] 9.0 fL 6.2-12.0 [facility] Mean platelet volume determi nationOrdered By: Papi Hernandez on 10-24-2024 Platelet mean volume (Bld) [Entitic vol] 8.8 fL 6.2-12.0 [facility] Microscopic analysis of urin e for red blood cells (RBC)Ordered By: Jerry Hightower on 10-24-2024 Microscopic analysis of urine for red blood cells (RBC) 0-5 SEEN /hpf 0-5 [facility] Urine RBC 0-5 SEEN /hpf 0-5 [facility] Miscellaneous procedureOrder ed By: Papi Hernandez on 10-24-2024 Miscellaneous Test Comment SEE SCANNED REPORT [facility] Monocyte percentageOrdered B y: Jerry Hightower on 10-24-2024 Monocytes/100 WBC (Bld) 8.4 % 0-10 [facility] Monocyte percentageOrdered B y: Papi Hernandez on 10-24-2024 Monocytes/100 WBC (Bld) 9.7 % 0-10 [facility] Mucus LM Ql (Urine sed)Order ed By: Jerry Hightower on 10-24-2024 Mucus Ql (Urine sed) 0 SEEN /hpf [facility] NATERAon 10-24-2024 NATURA SEE SCANNED REPORT Normal [facility] Comment on above: Performed By: #### L 900.0098, L504.2610, L100.0100, L500.4050 ####[facility] [address] [place], [address] Neutrophil percentageOrdered By: Jerry Hightower on 10-24-2024 Neutrophils/100 WBC (Bld) 77.1 % High 47-70 [facility] Neutrophil percentageOrdered By: Papi Hernandez on 10-24-2024 Neutrophils/100 WBC (Bld) 73.8 % High 47-70 [facility] Nitrite Test strip Ql (U)Ord ered By: Jerry Hightower on 10-24-2024 Nitrite Ql (U) Negative Negative [facility] No Panel InformationOrdered By: Jerry Hightower on 10-24-2024 27 U/L <38 [facility] No Panel InformationOrdered By: Papi Hernandez on 10-24-2024 27 U/L <38 [facility] Nucleated red blood cell per centageOrdered By: Jerry Hightower on 10-24-2024 Nucleated RBC/100 WBC (Bld) [Ratio] 0 % 0-5 [facility] Nucleated red blood cell per centageOrdered By: Papi Hernandez on 10-24-2024 Nucleated RBC/100 WBC (Bld) [Ratio] 0 % 0-5 [facility] Platelet countOrdered By: Avinash Hightower on 10-24-2024 Platelets (Bld) [#/Vol] 307 10*3/uL 150-450 [facility] Platelet countOrdered By: Santa Hernandez on 10-24-2024 Platelets (Bld) [#/Vol] 299 10*3/uL 150-450 [facility] Potassium (Unsp spec) [Mass/ Vol]Ordered By: Jerry Hightower on 10-24-2024 Potassium [Moles/Vol] 3.8 mmol/L 3.3-5.1 [facility] Potassium (Unsp spec) [Mass/ Vol]Ordered By: Papi Hernandez on 10-24-2024 Potassium [Moles/Vol] 4.2 mmol/L 3.3-5.1 [facility] Potassium measurement (mass/ volume)Ordered By: Jerry Hightower on 10-24-2024 Potassium (Unsp spec) [Mass/Vol] 3.8 mmol/L 3.3-5.1 [facility] Potassium measurement (mass/ volume)Ordered By: Papi Hernandez on 10-24-2024 Potassium (Unsp spec) [Mass/Vol] 4.2 mmol/L 3.3-5.1 [facility] Protein Test strip Ql (U)Ord ered By: Jerry Hightower on 10-24-2024 Protein Ql (U) 15 mg/dl High Negative [facility] RBC Auto (Bld) [#/Vol]Ordere d By: Jerry Hightower on 10-24-2024 RBC (Bld) [#/Vol] 4.25 10*6/uL Low 4.6-6.2 [facility] RBC Auto (Bld) [#/Vol]Ordere d By: Papi Hernandez on 10-24-2024 RBC (Bld) [#/Vol] 4.28 10*6/uL Low 4.6-6.2 [facility] Serum creatinine measurement (mass/volume)Ordered By: Jerry Hightower on 10-24-2024 Creatinine [Mass/Vol] 0.94 mg/dL 0.70-1.20 [facility] Serum creatinine measurement (mass/volume)Ordered By: Papi Hernandez on 10-24-2024 Creatinine [Mass/Vol] 0.90 mg/dL 0.70-1.20 [facility] Serum globulin measurementOr dered By: Jerry Hightower on 10-24-2024 Globulin (S) [Mass/Vol] 3.0 g/dL 2.2-4.2 [facility] Serum globulin measurementOr dered By: Papi Hernandez on 10-24-2024 Globulin (S) [Mass/Vol] 2.9 g/dL 2.2-4.2 [facility] Serum glucose measurement (m ass/volume)Ordered By: Jerry Hightower on 10-24-2024 Glucose [Mass/Vol] 105 mg/dL High 70-99 [facility] Serum glucose measurement (m ass/volume)Ordered By: Papi Hernandez on 10-24-2024 Glucose [Mass/Vol] 107 mg/dL High 70-99 [facility] Serum or plasma alanine carrion otransferase (ALT) measurementOrdered By: Jerry Hightower on 10-24-2024 ALT [Catalytic activity/Vol] 17 U/L <47 [facility] Serum or plasma alanine carrion otransferase (ALT) measurementOrdered By: Papi Hernandez on 10-24-2024 ALT [Catalytic activity/Vol] 16 U/L <47 [facility] Serum or plasma albumin shagufta urement (mass/volume)Ordered By: Jerry Hightower on 10-24-2024 Albumin [Mass/Vol] 4.3 g/dL 3.4-4.8 [facility] Serum or plasma albumin shagufta urement (mass/volume)Ordered By: Papi Hernandez on 10-24-2024 Albumin [Mass/Vol] 4.2 g/dL 3.4-4.8 [facility] Serum or plasma albumin/glob ulin mass ratioOrdered By: Jerry Hightowre on 10-24-2024 Albumin/Globulin [Mass ratio] 1.4 {ratio} 0.9-2.4 [facility] Serum or plasma albumin/glob ulin mass ratioOrdered By: Papi Hernandez on 10-24-2024 Albumin/Globulin [Mass ratio] 1.4 {ratio} 0.9-2.4 [facility] Serum or plasma alkaline airam sphatase measurementOrdered By: Jerry Hightower on 10-24-2024 ALP [Catalytic activity/Vol] 103 U/L 40-129 [facility] Serum or plasma alkaline airam sphatase measurementOrdered By: Papi Hernandez on 10-24-2024 ALP [Catalytic activity/Vol] 100 U/L 40-129 [facility] Serum or plasma calcium shagufta urement (mass/volume)Ordered By: Jerry Hightower on 10-24-2024 Calcium [Mass/Vol] 9.2 mg/dL 7.6-11.0 [facility] Serum or plasma calcium shagufta urement (mass/volume)Ordered By: Papi Hernandez on 10-24-2024 Calcium [Mass/Vol] 9.2 mg/dL 7.6-11.0 [facility] Serum or plasma carcinoembry onic antigen measurement (mass/volume)Ordered By: Papi Hernandez on 10-24-2024 Carcinoembryonic Ag [Mass/Vol] 25.2 ng/mL High 0.0-4.7 [facility] Comment on above: Nonsmokers <3.9 Smok ers <5.6[employer] Electrochemiluminescence Immunoassay(ECLIA)Values obtained with different assay methods or kitscannot be used interchangeably. Results cannot beinterpreted as absolute evidence of the presence orabsence of malignant disease.Performed at: [address] [id number] Director: Jian Paredes PhD, Phone: [phone] Serum or plasma urea nitroge n measurement (mass/volume)Ordered By: Jerry Hightower on 10-24-2024 Urea nitrogen [Mass/Vol] 11 mg/dL 11-17 [facility] Serum or plasma urea nitroge n measurement (mass/volume)Ordered By: Papi Hernandez on 10-24-2024 Urea nitrogen [Mass/Vol] 11 mg/dL 11-17 [facility] Sodium levelOrdered By: Natalie Hightower on 10-24-2024 Sodium [Moles/Vol] 130 mmol/L Low 133-145 [facility] Sodium levelOrdered By: Stephan Hernandez on 10-24-2024 Sodium [Moles/Vol] 131 mmol/L Low 133-145 [facility] Squamous epithelial cells de tection in urine sediment by light microscopyOrdered By: Jerry Hightower on 10-24-2024 Epithelial cells.squamous LM Ql (Urine sed) 0-5 SEEN /hpf 0-5 [facility] Testicular with Arterial Tommy won 10-24-2024 Testicular with Arterial Flow Normal [facility] Total proteinOrdered By: Renay Hightower on 10-24-2024 Protein [Mass/Vol] 7.3 g/dL 5.9-8.4 [facility] Total proteinOrdered By: Thang Hernandez on 10-24-2024 Protein [Mass/Vol] 7.0 g/dL 5.9-8.4 [facility] Urinalysis, Completeon 10-24 EPI,SQUAMOUS 0-5 SEEN Normal 0-5 [facility] Comment on above: Order Comment: CLEAN CATCH Performed By: #### L 400.0001 ####[facility] [address] [place], [address] RBC 0-5 SEEN Normal 0-5 [facility] Comment on above: Order Comment: CLEAN CATCH Performed By: #### L 400.0001 ####[facility] [address] [place], [place], [id number] BACTERIA 0 SEEN Normal None Seen [facility] Comment on above: Order Comment: CLEAN CATCH Performed By: #### L 400.0001 ####[facility] [address] [place], [place], [id number] Mucus Ql (Urine sed) 0 SEEN Normal [facility] Comment on above: Order Comment: CLEAN CATCH Performed By: #### L 400.0001 ####[facility] [address] [place], [place], [id number] WBC 0 SEEN Normal 0-5 [facility] Comment on above: Order Comment: CLEAN CATCH Performed By: #### L 400.0001 ####[facility] [address] [place], [place], [id number] Urine blood detectionOrdered By: Jerry Hightower on 10-24-2024 Urine Occult Blood Negative Negative [facility] Urine clarityOrdered By: Renay Hightower on 10-24-2024 Clarity (U) Clear Clear [facility] Urine color determinationOrd ered By: Jerry Hightower on 10-24-2024 Color (U) Straw Yellow [facility] Urine glucose detectionOrder ed By: Jerry Hightower on 10-24-2024 Glucose Ql (U) Normal mg/dl Normal [facility] Urine leukocyte esterase det ection by dipstickOrdered By: Jerry Hightower on 10-24-2024 Leukocyte esterase Test strip Ql (U) Negative Negative [facility] Urine pHOrdered By: Jerry garza on 10-24-2024 pH (U) 8.0 [pH] 5.0 - 8.0 [facility] Urine sediment bacteria coun t by microscopy (number/high power field)Ordered By: Jerry Hightower on 10-24-2024 Bacteria LM.HPF (Urine sed) [#/Area] 0 /[HPF] None Seen [facility] Urine specific gravity measu rementOrdered By: Jerry Hightower on 10-24-2024 Specific gravity (U) [Rel density] 1.010 1.002-1.030 [facility] Urine urobilinogen measureme ntOrdered By: Jerry Hightower on 10-24-2024 Urobilinogen Ql (U) Normal mg/dl Normal [facility] Urobilinogen Ql (U)Ordered B y: Jerry Hightower on 10-24-2024 Urine Urobilinogen Normal mg/dl Normal [facility] White blood cell (WBC) count Ordered By: Jerry Hightower on 10-24-2024 WBC (Bld) [#/Vol] 8.7 10*3/uL 4.4-11.0 [facility] White blood cell (WBC) count Ordered By: Papi Hernandez on 10-24-2024 WBC (Bld) [#/Vol] 8.8 10*3/uL 4.4-11.0 [facility] White blood cell countOrdere d By: Jerry Hightower on 10-24-2024 Urine WBC 0 SEEN /hpf 0-5 [facility] White blood cell count 0 SEEN /hpf 0-5 [facility] Amorphous sediment detection in urine sediment by light microscopyOrdered By: Malinda Webster on 10-17-2024 Amorphous sediment LM Ql (Urine sed) 3+ [facility] Anion gap in Serum or Plasma Ordered By: Malinda Webster on 10-17-2024 Anion gap [Moles/Vol] 9 mmol/L 5-15 [facility] BUN/creatinine ratioOrdered By: Malinda Webster on 10-17-2024 Urea nitrogen/Creatinine [Mass ratio] 15.2 mg/mg 10- [facility] Basic Metabolic Profile (BMP )on 10-17-2024 BUN/CRE 15.2 RATIO Normal - [facility] Comment on above: Performed By: #### L 500.2500, L400.0001 ####[facility] [address] [place], [address] Calcium [Mass/Vol] 9.7 mg/dL Normal 7.6-11.0 [facility] Comment on above: Performed By: #### L 500.2500, L400.0001 ####[facility] [address] [place], [address] Chloride [Moles/Vol] 93 mmol/L Low 98-108 [facility] Comment on above: Performed By: #### L 500.2500, L400.0001 ####[facility] [address] [place], [address] CO2 [Moles/Vol] 27.4 mmol/L Normal 21.0-32.0 [facility] Comment on above: Performed By: #### L 500.2500, L400.0001 ####[facility] [address] [place], [address] Creatinine [Mass/Vol] 1.06 mg/dL Normal 0.70-1.20 [facility] Comment on above: Performed By: #### L 500.2500, L400.0001 ####[facility] [address] [place], [address] GAP 9 Normal 5-15 [facility] Comment on above: Performed By: #### L 500.2500, L400.0001 ####[facility] [address] [place], [address] GFR/1.73 sq M.predicted among non-blacks MDRD (S/P/Bld) [Vol rate/Area] 71 mL/min/{1.73_m2} Normal >60 [facility] Comment on above: Result Comment: mL/m in/1.73m2 CKD-EPI Creatinine Equation (2020) Performed By: #### L 500.2500, L400.0001 ####[facility] [address] [place], [address] Glucose [Mass/Vol] 100 mg/dL High 70-99 [facility] Comment on above: Performed By: #### L 500.2500, L400.0001 ####[facility] [address] [place], [address] Potassium [Moles/Vol] 4.5 mmol/L Normal 3.3-5.1 [facility] Comment on above: Performed By: #### L 500.2500, L400.0001 ####[facility] [address] [place], [address] Sodium [Moles/Vol] 130 mmol/L Low 133-145 [facility] Comment on above: Performed By: #### L 500.2500, L400.0001 ####[facility] [address] [place], [address] Urea nitrogen [Mass/Vol] 16 mg/dL Normal - [facility] Comment on above: Performed By: #### L 500.2500, L400.0001 ####[facility] [address] [place], [address] Bilirubin Test strip Ql (U)O rdered By: Malinda Webster on 10-17-2024 Bilirubin Ql (U) Negative Negative [facility] Carbon dioxide, total [Moles /volume] in Central venous bloodOrdered By: Malinda Webster on 10-17-2024 CO2 [Moles/Vol] 27.4 mmol/L 21.0-32.0 [facility] Cardiology Visit Reporton Cardiology Visit Report Normal [facility] Chloride assayOrdered By: Santa Webster on 10-17-2024 Chloride [Moles/Vol] 93 mmol/L Low 98-108 [facility] Epithelial cells.squamous LM Ql (Urine sed)Ordered By: Malinda Webster on 10-17-2024 Epithelial cells.squamous LM.HPF (Urine sed) [#/Area] 0 /[HPF] 0-5 [facility] GFR/1.73 sq M.predicted gregg g non-blacks MDRD (S/P/Bld) [Vol rate/Area]Ordered By: Malinda Webster on 10-17-2024 Estimated GFR (MDRD) Non-Af Amer 71 >60 [facility] Comment on above: mL/min/1.73m2 CKD-EP I Creatinine Equation (2020) Glomerular filtration rate ( GFR) estimation/1.73 sq m using serum, plasma, or whole bOrdered By: Malinda Webster on 10-17-2024 GFR/1.73 sq M.predicted among non-blacks MDRD (S/P/Bld) [Vol rate/Area] 71 mL/min/{1.73_m2} >60 [facility] Comment on above: mL/min/1.73m2 CKD-EP I Creatinine Equation (2020) Glucose Ql (U)Ordered By: Santa Webster on 10-17-2024 Urine Glucose (UA) Normal mg/dl Normal [facility] Ketones Test strip Ql (U)Ord ered By: Malinda Webster on 10-17-2024 Ketones Ql (U) Negative Negative [facility] Microscopic analysis of urin e for red blood cells (RBC)Ordered By: Malinda Webster on 10-17-2024 Microscopic analysis of urine for red blood cells (RBC) 0 SEEN /hpf 0-5 [facility] Urine RBC 0 SEEN /hpf 0-5 [facility] Mucus LM Ql (Urine sed)Order ed By: Malinda Webster on 10-17-2024 Mucus Ql (Urine sed) 0 SEEN /hpf [facility] Nitrite Test strip Ql (U)Ord ered By: Malinda Webster on 10-17-2024 Nitrite Ql (U) Negative Negative [facility] Potassium (Unsp spec) [Mass/ Vol]Ordered By: Malinda Webster on 10-17-2024 Potassium [Moles/Vol] 4.5 mmol/L 3.3-5.1 [facility] Potassium measurement (mass/ volume)Ordered By: Malinda Webster on 10-17-2024 Potassium (Unsp spec) [Mass/Vol] 4.5 mmol/L 3.3-5.1 [facility] Protein Test strip Ql (U)Ord ered By: Malinda Webster on 10-17-2024 Protein Ql (U) 30 mg/dl High Negative [facility] Serum creatinine measurement (mass/volume)Ordered By: Malinda Webster on 10-17-2024 Creatinine [Mass/Vol] 1.06 mg/dL 0.70-1.20 [facility] Serum glucose measurement (m ass/volume)Ordered By: Malinda Webster on 10-17-2024 Glucose [Mass/Vol] 100 mg/dL High 70-99 [facility] Serum or plasma calcium shagufta urement (mass/volume)Ordered By: Malinda Webster on 10-17-2024 Calcium [Mass/Vol] 9.7 mg/dL 7.6-11.0 [facility] Serum or plasma urea nitroge n measurement (mass/volume)Ordered By: Malinda Webster on 10-17-2024 Urea nitrogen [Mass/Vol] 16 mg/dL 4-19 [facility] Sodium levelOrdered By: Malinda Webster on 10-17-2024 Sodium [Moles/Vol] 130 mmol/L Low 133-145 [facility] Squamous epithelial cells de tection in urine sediment by light microscopyOrdered By: Malinda Webster on 10-17-2024 Epithelial cells.squamous LM Ql (Urine sed) 0 SEEN /hpf 0-5 [facility] Urinalysis, Completeon 10-17 AMORPHOUS 3+ Normal [facility] Comment on above: Order Comment: BOB CTOR TO SPECIFY Performed By: #### L 500.2500, L400.0001 ####[facility] [address] [place], [address] BACTERIA 2+ /hpf Normal None Seen [facility] Comment on above: Order Comment: BOB CTOR TO SPECIFY Performed By: #### L 500.2500, L400.0001 ####[facility] [address] [place], [address] RBC 0 SEEN Normal 0-5 [facility] Comment on above: Order Comment: BOB CTOR TO SPECIFY Performed By: #### L 500.2500, L400.0001 ####[facility] [address] [place], [address] EPI,SQUAMOUS 0 SEEN Normal 0-5 [facility] Comment on above: Order Comment: BOB CTOR TO SPECIFY Performed By: #### L 500.2500, L400.0001 ####[facility] [address] [place], [address] Mucus Ql (Urine sed) 0 SEEN Normal [facility] Comment on above: Order Comment: BOB CTOR TO SPECIFY Performed By: #### L 500.2500, L400.0001 ####[facility] [address] [place], [place], [address] WBC 0 SEEN Normal 0-5 [facility] Comment on above: Order Comment: BOB CTOR TO SPECIFY Performed By: #### L 500.2500, L400.0001 ####[facility] [address] [place], [address] Urine blood detectionOrdered By: Malinda Webster on 10-17-2024 Urine Occult Blood Negative Negative [facility] Urine clarityOrdered By: Marcelo Webster on 10-17-2024 Clarity (U) Sl. Cloudy Clear [facility] Urine color determinationOrd ered By: Malinda Webster on 10-17-2024 Color (U) Yellow Yellow [facility] Urine glucose detectionOrder ed By: Malinda Webster on 10-17-2024 Glucose Ql (U) Normal mg/dl Normal [facility] Urine leukocyte esterase det ection by dipstickOrdered By: Malinda Webster on 10-17-2024 Leukocyte esterase Test strip Ql (U) Negative Negative [facility] Urine pHOrdered By: Malinda vallejo on 10-17-2024 pH (U) 8.0 [pH] 5.0 - 8.0 [facility] Urine sediment bacteria coun t by microscopy (number/high power field)Ordered By: Malinda Webster on 10-17-2024 Bacteria LM.HPF (Urine sed) [#/Area] 2 /[HPF] None Seen [facility] Urine specific gravity measu rementOrdered By: Malinda Webster on 10-17-2024 Specific gravity (U) [Rel density] 1.015 1.002-1.030 [facility] Urine urobilinogen measureme ntOrdered By: Malinda Webster on 10-17-2024 Urobilinogen Ql (U) Normal mg/dl Normal [facility] Urobilinogen Ql (U)Ordered B y: Malinda Webster on 10-17-2024 Urine Urobilinogen Normal mg/dl Normal [facility] White blood cell countOrdere d By: Malinda Webster on 10-17-2024 Urine WBC 0 SEEN /hpf 0-5 [facility] White blood cell count 0 SEEN /hpf 0-5 [facility] Absolute lymphocyte countOrd ered By: [facility] on 09-05-2024 Lymphocytes Auto (Unsp spec) [#/Vol] 1.41 10*3/uL 0.83-4.51 [facility] Absolute neutrophil countOrd ered By: [facility] on 09-05-2024 Neutrophils (Bld) [#/Vol] 4.1 10*3/uL 2.0-7.7 [facility] Albumin to globulin ratioOrd ered By: [facility] on 09-05-2024 Albumin/Globulin [Mass ratio] 1.0 {ratio} 0.9-2.4 [facility] Automated lymphocyte count a s percentage of total leukocytesOrdered By: [facility] on 09-05-2024 Lymphocytes/100 WBC Auto (Unsp spec) 22.2 % 19-41 [facility] Basophil percentageOrdered B y: [facility] on 09-05-2024 Basophils/100 WBC (Bld) 0.3 % 0-1 [facility] Bilirubin, totalOrdered By: [facility] on 09-05-2024 Bilirubin [Mass/Vol] 0.80 mg/dL 0.20-1.00 [facility] Comment on above: For patients on eltr ombopag therapy, use of Dimension Dexter TBIL is not recommended. Blood urea nitrogen (BUN)/cr eatinine ratioOrdered By: [facility] on 09-05-2024 Urea nitrogen/Creatinine [Mass ratio] 13.0 mg/mg 10-20 [facility] CBC W/Diff, Automatedon 02 Absolute Lymph 1.41 X10 3/uL Normal 0.83-4.51 [facility] Comment on above: Performed By: #### L 100.0100, L500.4050 ####[facility] [address] [place], [place], [id number] Absolute Neut 4.1 X10 3/uL Normal 2.0-7.7 [facility] Comment on above: Performed By: #### L 100.0100, L500.4050 ####[facility] [address] [place], [address] Basophils/100 WBC (Bld) 0.3 % Normal 0-1 [facility] Comment on above: Performed By: #### L 100.0100, L500.4050 ####[facility] [address] [place], [address] Eosinophils/100 WBC (Bld) 3.1 % Normal 0-5 [facility] Comment on above: Performed By: #### L 100.0100, L500.4050 ####[facility] [address] [place], [address] Erythrocyte distribution width (RBC) [Ratio] 13.3 % Normal 11.6-14.6 [facility] Comment on above: Performed By: #### L 100.0100, L500.4050 ####[facility] [address] [place], [address] Hematocrit (Bld) [Volume fraction] 39.9 % Low 40-54 [facility] Comment on above: Performed By: #### L 100.0100, L500.4050 ####[facility] [address] [place], [address] Hemoglobin (Bld) [Mass/Vol] 13.3 g/dL Normal 13.0-16.5 [facility] Comment on above: Performed By: #### L 100.0100, L500.4050 ####[facility] [address] [place], [address] IG% 0.200 Normal 0.0-0.9 [facility] Comment on above: Result Comment: IG% - Immature Granulocytes (promyelocytes, myelocytes andmetamyelocytes) > 1% indicates that a LEFT SHIFT is Present. Performed By: #### L 100.0100, L500.4050 ####[facility] [address] [place], [address] Lymphocytes/100 WBC (Bld) 22.2 % Normal 19-41 [facility] Comment on above: Performed By: #### L 100.0100, L500.4050 ####[facility] [address] [place], [address] MCH (RBC) [Entitic mass] 29.6 pg Normal 27.0-32.0 [facility] Comment on above: Performed By: #### L 100.0100, L500.4050 ####[facility] [address] [place], [address] MCHC (RBC) [Mass/Vol] 33.3 g/dL Normal 32-36 [facility] Comment on above: Performed By: #### L 100.0100, L500.4050 ####[facility] [address] [place], [address] MCV (RBC) [Entitic vol] 88.7 fL Normal 80-94 [facility] Comment on above: Performed By: #### L 100.0100, L500.4050 ####[facility] [address] [place], [address] Monocytes/100 WBC (Bld) 10.2 % High 0-10 [facility] Comment on above: Performed By: #### L 100.0100, L500.4050 ####[facility] [address] [place], [address] Neutrophils/100 WBC (Bld) 64.0 % Normal 47-70 [facility] Comment on above: Performed By: #### L 100.0100, L500.4050 ####[facility] [address] [place], [address] Nucleated RBC (Bld) [#/Vol] 0 10*3/uL Normal 0-5 [facility] Comment on above: Performed By: #### L 100.0100, L500.4050 ####[facility] [address] [place], [address] Platelet mean volume (Bld) [Entitic vol] 9.8 fL Normal 6.2-12.0 [facility] Comment on above: Performed By: #### L 100.0100, L500.4050 ####[facility] [address] [place], [address] Platelets (Bld) [#/Vol] 274 10*3/uL Normal 150-450 [facility] Comment on above: Performed By: #### L 100.0100, L500.4050 ####[facility] [address] [place], [address] RBC (Bld) [#/Vol] 4.50 10*6/uL Low 4.6-6.2 [facility] Comment on above: Performed By: #### L 100.0100, L500.4050 ####[facility] [address] [place], [address] RDW SD 43.2 fl Normal 35.1-43.9 [facility] Comment on above: Performed By: #### L 100.0100, L500.4050 ####[facility] [address] [place], [address] WBC (Bld) [#/Vol] 6.4 10*3/uL Normal 4.4-11.0 [facility] Comment on above: Performed By: #### L 100.0100, L500.4050 ####[facility] [address] [place], [address] Carbon dioxide measurementOr dered By: Mariela Olson on 09-05-2024 CO2 [Moles/Vol] 30.0 mmol/L 21.0-32.0 [facility] Chloride measurementOrdered By: Mariela Olson on 09-05-2024 Chloride [Moles/Vol] 98 mmol/L 98-107 [facility] Metabolic Prof ilon 09-05-2024 Albumin [Mass/Vol] 3.8 g/dL Normal 3.2-5.0 [facility] Comment on above: Performed By: #### L 100.0100, L500.4050 ####[facility] [address] [place], [address] Albumin/Globulin [Mass ratio] 1.0 {ratio} Normal 0.9-2.4 [facility] Comment on above: Performed By: #### L 100.0100, L500.4050 ####[facility] [address] [place], [address] ALK P 106 U/L Normal 45-117 [facility] Comment on above: Performed By: #### L 100.0100, L500.4050 ####[facility] [address] [place], [address] ALT [Catalytic activity/Vol] 30 U/L Normal 16-61 [facility] Comment on above: Performed By: #### L 100.0100, L500.4050 ####[facility] [address] [place], [address] AST [Catalytic activity/Vol] 27 U/L Normal 15-37 [facility] Comment on above: Performed By: #### L 100.0100, L500.4050 ####[facility] [address] [place], [address] Bilirubin [Mass/Vol] 0.80 mg/dL Normal 0.20-1.00 [facility] Comment on above: Result Comment: For patients on eltrombopag therapy, use of Dimension Dexter TBIL is not recommended. Performed By: #### L 100.0100, L500.4050 ####[facility] [address] [place], [address] BUN/CRE 13.0 RATIO Normal 10-20 [facility] Comment on above: Performed By: #### L 100.0100, L500.4050 ####[facility] [address] [place], [address] CA,Total 9.8 mg/dL Normal 8.5-10.1 [facility] Comment on above: Performed By: #### L 100.0100, L500.4050 ####[facility] [address] [place], [address] Chloride [Moles/Vol] 98 mmol/L Normal 98-107 [facility] Comment on above: Performed By: #### L 100.0100, L500.4050 ####[facility] [address] [place], [address] CO2 [Moles/Vol] 30.0 mmol/L Normal 21.0-32.0 [facility] Comment on above: Performed By: #### L 100.0100, L500.4050 ####[facility] [address] [place], [address] Creatinine [Mass/Vol] 1.23 mg/dL Normal 0.70-1.30 [facility] Comment on above: Result Comment: The validity of the calculated GFR GFRAA in patients over70 years has not been determined. Clinical correlation isessential. Performed By: #### L 100.0100, L500.4050 ####[facility] [address] [place], [address] EST GFR - AA 73 mL/min Normal >60 [facility] Comment on above: Result Comment: Afri can Tristanian GFR Calc Performed By: #### L 100.0100, L500.4050 ####[facility] [address] [place], [address] GAP 7 Normal 5-15 [facility] Comment on above: Performed By: #### L 100.0100, L500.4050 ####[facility] [address] [place], [address] GFR/1.73 sq M.predicted among non-blacks MDRD (S/P/Bld) [Vol rate/Area] 60 mL/min/{1.73_m2} Normal >60 [facility] Comment on above: Result Comment: Non- GFR Calc Performed By: #### L 100.0100, L500.4050 ####[facility] [address] [place], [address] Globulin (S) [Mass/Vol] 3.7 g/dL Normal 2.2-4.2 [facility] Comment on above: Performed By: #### L 100.0100, L500.4050 ####[facility] [address] [place], [address] Glucose [Mass/Vol] 99 mg/dL Normal 74-106 [facility] Comment on above: Performed By: #### L 100.0100, L500.4050 ####[facility] [address] [place], [address] Potassium [Moles/Vol] 4.3 mmol/L Normal 3.5-5.1 [facility] Comment on above: Performed By: #### L 100.0100, L500.4050 ####[facility] [address] [place], [address] Sodium [Moles/Vol] 135 mmol/L Low 136-145 [facility] Comment on above: Performed By: #### L 100.0100, L500.4050 ####[facility] [address] [place], [address] T PROT 7.5 g/dL Normal 6.4-8.2 [facility] Comment on above: Performed By: #### L 100.0100, L500.4050 ####[facility] [address] [place], [address] Urea nitrogen [Mass/Vol] 16 mg/dL Normal 7-18 [facility] Comment on above: Performed By: #### L 100.0100, L500.4050 ####[facility] [address] [place], [place], [id number] Eosinophil [facility]Ordered [facility]: [facility] Eosinophils/100 WBC (Bld) 3.1 % 0-5 [facility] Erythrocyte distribution wid th ratioOrdered By: [facility] on [facility]-2024 Erythrocyte distribution width (RBC) [Ratio] 13.3 % 11.6-14.6 [facility] Erythrocyte distribution wid th standard deviationOrdered By: [facility] on 09-[facility]-2024 Erythrocyte distribution width (RBC) [Entitic vol] 43.2 fL 35.1-43.9 [facility] Erythrocyte distribution width (RBC) [Ratio] 43.2 fl 35.1-43.9 [facility] Estimated glomerular filtrat ion rate (GFR) AmericanOrdered By: Marielabruce Olson on 09-05-2024 Estimated GFR (MDRD) Amer 73 mL/min >60 [facility] Comment on above: GFR Calc Glomerular filtration rate ( GFR) estimationOrdered By: Marielabruce Olson on 09-05-2024 Estimated GFR (MDRD) Non-Af Amer 60 mL/min >60 [facility] Comment on above: Non- GFR Calc GFR/1.73 sq M.predicted among non-blacks MDRD (S/P/Bld) [Vol rate/Area] 60 mL/min/{1.73_m2} >60 [facility] Comment on above: Non- GFR Calc Glucose measurementOrdered B y: Mariela Olson on 09-05-2024 Glucose [Mass/Vol] 99 mg/dL 74-106 [facility] Hematocrit Auto (Bld) [Volum e fraction]Ordered By: Mariela Olson on 09-05-2024 Hematocrit (Bld) [Volume fraction] 39.9 % Low 40-54 [facility] Hemoglobin measurementOrdere d By: Mariela Olson on 09-05-2024 Hemoglobin (Bld) [Mass/Vol] 13.3 g/dL 13.0-16.5 [facility] Immature granulocytes/100 WB C Auto (Bld)Ordered By: Mariela Olson on 09-05-2024 Immature granulocytes/100 WBC (Bld) 0.200 % 0.0-0.9 [facility] Comment on above: IG% - Immature Granu locytes (promyelocytes, myelocytes and metamyelocytes) > 1% indicates that a LEFT SHIFT is Present. Laboratory - Chemistry and C hemistry - challengeOrdered By: Mariela Olson on 09-05-2024 AST [Catalytic activity/Vol] 27 U/L 15-37 [facility] Lymphocytes Auto (Unsp spec) [#/Vol]Ordered By: Marielabruce Olson on 09-05-2024 Lymphocytes (Bld) [#/Vol] 1.41 10*3/uL 0.83-4.51 [facility] Lymphocytes/100 WBC Auto (Un sp spec)Ordered By: Mariela Olson on 09-05-2024 Lymphocytes/100 WBC (Bld) 22.2 % 19-41 [facility] MCV (mean corpuscular volume ) determinationOrdered By: Mariela Shahram on 09-05-2024 MCV (RBC) [Entitic vol] 88.7 fL 80-94 [facility] Mean corpuscular hemoglobin (MCH) determinationOrdered By: Marielabruce Olson on 09-05-2024 MCH (RBC) [Entitic mass] 29.6 pg 27.0-32.0 [facility] Mean corpuscular hemoglobin concentration (MCHC) determinationOrdered By: Marielabruce Olson on 09-05-2024 MCHC (RBC) [Mass/Vol] 33.3 g/dL 32-36 [facility] Mean platelet volume determi nationOrdered By: Marielabruce Olson on 09-05-2024 Platelet mean volume (Bld) [Entitic vol] 9.8 fL 6.2-12.0 [facility] Monocyte percentageOrdered B y: Mariela Olson on 09-05-2024 Monocytes/100 WBC (Bld) 10.2 % High 0-10 [facility] Neutrophil percentageOrdered By: Mariela Olson on 02-05-2025 Neutrophils/100 WBC (Bld) 64.0 % 47-70 [facility] No Panel InformationOrdered By: Mariela Olson on 09-05-2024 27 U/L 15-37 [facility] Nucleated red blood cell per centageOrdered By: Mariela Olson on 09-05-2024 Nucleated RBC/100 WBC (Bld) [Ratio] 0 % 0-5 [facility] Platelet countOrdered By: Ra caio Olson on 09-05-2024 Platelets (Bld) [#/Vol] 274 10*3/uL 150-450 [facility] Potassium measurementOrdered By: Mariela Olson on 09-05-2024 Potassium [Moles/Vol] 4.3 mmol/L 3.5-5.1 [facility] RBC Auto (Bld) [#/Vol]Ordere d By: Mariela Olson on 09-05-2024 RBC (Bld) [#/Vol] 4.50 10*6/uL Low 4.6-6.2 [facility] Serum anion gap measurementO rdered By: Mariela Olson on 09-05-2024 Anion gap [Moles/Vol] 7 mmol/L 5-15 [facility] Serum globulin measurementOr dered By: Mariela Olson on 09-05-2024 Globulin (S) [Mass/Vol] 3.7 g/dL 2.2-4.2 [facility] Serum or plasma alanine carrion otransferase (ALT) measurementOrdered By: Mariela Olson 09-05-2024 ALT [Catalytic activity/Vol] 30 U/L 16-61 [facility] Serum or plasma albumin shagufta urement (mass/volume)Ordered By: Mariela Olson on 09-05-2024 Albumin [Mass/Vol] 3.8 g/dL 3.2-5.0 [facility] Serum or plasma alkaline airam sphatase measurementOrdered By: Mariela Olson 09-05-2024 ALP [Catalytic activity/Vol] 106 U/L 45-117 [facility] Serum or plasma calcium shagufta urement (mass/volume)Ordered By: Mariela Olson 09-05-2024 Calcium [Mass/Vol] 9.8 mg/dL 8.5-10.1 [facility] Serum or plasma creatinine m easurement (mass/volume)Ordered By: Mariela Cifuentesgar on 09-05-2024 Creatinine [Mass/Vol] 1.23 mg/dL 0.70-1.30 [facility] Comment on above: The validity of the calculated GFR & GFRAA in patients over 70 years has not been determined. Clinical correlation is essential. Serum or plasma urea nitroge n measurement (mass/volume)Ordered By: Mariela Olson on 09-05-2024 Urea nitrogen [Mass/Vol] 16 mg/dL 7-18 [facility] Sodium levelOrdered By: Ana M delisa Shahram on 09-05-2024 Sodium [Moles/Vol] 135 mmol/L Low 136-145 [facility] Total proteinOrdered By: Hortencia bruce Shahram on 09-05-2024 Protein [Mass/Vol] 7.5 g/dL 6.4-8.2 [facility] White blood cell (WBC) count Ordered By: Mariela Olson on 09-05-2024 WBC (Bld) [#/Vol] 6.4 10*3/uL 4.4-11.0 [facility] Oncology Visit Reporton Oncology Visit Report Normal [facility] Carcinoembryonic Antigenon 09-19-2023 CEA 6.6 ng/mL High 0.0-4.7 [facility] Comment on above: Result Comment: Nons mokers <3.9 Smokers <5.6[employer] Electrochemiluminescence Immunoassay(ECLIA)Values obtained with different assay methods or kitscannot be used interchangeably. Results cannot beinterpreted as absolute evidence of the presence orabsence of malignant disease.Performed at: [facility] [employer] [id number] Director: Jian Paredes PhD, Phone: [phone] Performed By: #### L 741.0117, L100.3444, L3036.8624 ####[facility] [address] [place], [place], [id number] CBC W/Diff, Automatedon 12- Absolute Lymph 1.90 X10 3/uL Normal 0.83-4.51 [facility] Comment on above: Performed By: #### L 500.4050, L100.0100, L3100.2300 ####[facility] [address] [place], [address] Absolute Neut 3.9 X10 3/uL Normal 2.0-7.7 [facility] Comment on above: Performed By: #### L 500.4050, L100.0100, L3100.2300 ####[facility] [address] [place], [address] Basophils/100 WBC (Bld) 0.3 % Normal 0-1 [facility] Comment on above: Performed By: #### L 500.4050, L100.0100, L3100.2300 ####[facility] [address] [place], [address] Eosinophils/100 WBC (Bld) 5.3 % High 0-5 [facility] Comment on above: Performed By: #### L 500.4050, L100.0100, L3100.2300 ####[facility] [address] [place], [address] Erythrocyte distribution width (RBC) [Ratio] 17.1 % High 11.6-14.6 [facility] Comment on above: Performed By: #### L 500.4050, L100.0100, L3100.2300 ####[facility] [address] [place], [address] Hematocrit (Bld) [Volume fraction] 36.4 % Low 40-54 [facility] Comment on above: Performed By: #### L 500.4050, L100.0100, L3100.2300 ####[facility] [address] [place], [address] Hemoglobin (Bld) [Mass/Vol] 11.8 g/dL Low 13.0-16.5 [facility] Comment on above: Performed By: #### L 500.4050, L100.0100, L3100.2300 ####[facility] [address] [place], [address] IG% 0.300 Normal 0.0-0.9 [facility] Comment on above: Result Comment: IG% - Immature Granulocytes (promyelocytes, myelocytes andmetamyelocytes) > 1% indicates that a LEFT SHIFT is Present. Performed By: #### L 500.4050, L100.0100, L3100.2300 ####[facility] [address] [place], [address] Lymphocytes/100 WBC (Bld) 27.4 % Normal 19-41 [facility] Comment on above: Performed By: #### L 500.4050, L100.0100, L3100.2300 ####[facility] [address] [place], [address] MCH (RBC) [Entitic mass] 28.1 pg Normal 27.0-32.0 [facility] Comment on above: Performed By: #### L 500.4050, L100.0100, L3100.2300 ####[facility] [address] [place], [address] MCHC (RBC) [Mass/Vol] 32.4 g/dL Normal 32-36 [facility] Comment on above: Performed By: #### L 500.4050, L100.0100, L3100.2300 ####[facility] [address] [place], [address] MCV (RBC) [Entitic vol] 86.7 fL Normal 80-94 [facility] Comment on above: Performed By: #### L 500.4050, L100.0100, L3100.2300 ####[facility] [address] [place], [address] Monocytes/100 WBC (Bld) 11.1 % High 0-10 [facility] Comment on above: Performed By: #### L 500.4050, L100.0100, L3100.2300 ####[facility] [address] [place], [address] Neutrophils/100 WBC (Bld) 55.6 % Normal 47-70 [facility] Comment on above: Performed By: #### L 500.4050, L100.0100, L3100.2300 ####[facility] [address] [place], [address] Nucleated RBC (Bld) [#/Vol] 0 10*3/uL Normal 0-5 [facility] Comment on above: Performed By: #### L 500.4050, L100.0100, L3100.2300 ####[facility] [address] [place], [address] Platelet mean volume (Bld) [Entitic vol] 9.4 fL Normal 6.2-12.0 [facility] Comment on above: Performed By: #### L 500.4050, L100.0100, L3100.2300 ####[facility] [address] [place], [address] Platelets (Bld) [#/Vol] 230 10*3/uL Normal 150-450 [facility] Comment on above: Performed By: #### L 500.4050, L100.0100, L3100.2300 ####[facility] [address] [place], [address] RBC (Bld) [#/Vol] 4.20 10*6/uL Low 4.6-6.2 [facility] Comment on above: Performed By: #### L 500.4050, L100.0100, L3100.2300 ####[facility] [address] [place], [address] RDW SD 54.4 fl High 35.1-43.9 [facility] Comment on above: Performed By: #### L 500.4050, L100.0100, L3100.2300 ####[facility] [address] [place], [address] WBC (Bld) [#/Vol] 6.9 10*3/uL Normal 4.4-11.0 [facility] Comment on above: Performed By: #### L 500.4050, L100.0100, L3100.2300 ####[facility] [address] [place], [address] Comprehensive Metabolic Prof okon 07-18-2024 Albumin [Mass/Vol] 3.6 g/dL Normal 3.2-5.0 [facility] Comment on above: Performed By: #### L 500.4050, L100.0100, L3100.2300 ####[facility] [address] [place], [address] Albumin/Globulin [Mass ratio] 1.0 {ratio} Normal 0.9-2.4 [facility] Comment on above: Performed By: #### L 500.4050, L100.0100, L3100.2300 ####[facility] [address] [place], [address] ALK P 114 U/L Normal 45-117 [facility] Comment on above: Performed By: #### L 500.4050, L100.0100, L3100.2300 ####[facility] [address] [place], [address] ALT [Catalytic activity/Vol] 33 U/L Normal 16-61 [facility] Comment on above: Performed By: #### L 500.4050, L100.0100, L3100.2300 ####[facility] [address] [place], [address] AST [Catalytic activity/Vol] 25 U/L Normal 15-37 [facility] Comment on above: Performed By: #### L 500.4050, L100.0100, L3100.2300 ####[facility] [address] [place], [address] Bilirubin [Mass/Vol] 0.30 mg/dL Normal 0.20-1.00 [facility] Comment on above: Result Comment: For patients on eltrombopag therapy, use of Dimension Dexter TBIL is not recommended. Performed By: #### L 500.4050, L100.0100, L3100.2300 ####[facility] [address] [place], [address] BUN/CRE 14.8 RATIO Normal 10-20 [facility] Comment on above: Performed By: #### L 500.4050, L100.0100, L3100.2300 ####[facility] [address] [place], [address] CA,Total 9.0 mg/dL Normal 8.5-10.1 [facility] Comment on above: Performed By: #### L 500.4050, L100.0100, L3100.2300 ####[facility] [address] [place], [address] Chloride [Moles/Vol] 104 mmol/L Normal 98-107 [facility] Comment on above: Performed By: #### L 500.4050, L100.0100, L3100.2300 ####[facility] [address] [place], [address] CO2 [Moles/Vol] 30.0 mmol/L Normal 21.0-32.0 [facility] Comment on above: Performed By: #### L 500.4050, L100.0100, L3100.2300 ####[facility] [address] [place], [address] Creatinine [Mass/Vol] 1.15 mg/dL Normal 0.70-1.30 [facility] Comment on above: Result Comment: The validity of the calculated GFR GFRAA in patients over70 years has not been determined. Clinical correlation isessential. Performed By: #### L 500.4050, L100.0100, L3100.2300 ####[facility] [address] [place], [address] ECRCL 47.90 ml/min Normal [facility] Comment on above: Performed By: #### L 500.4050, L100.0100, L3100.2300 ####[facility] [address] [place], [address] EST GFR - AA 79 mL/min Normal >60 [facility] Comment on above: Result Comment: Afri can Tristanian GFR Calc Performed By: #### L 500.4050, L100.0100, L3100.2300 ####[facility] [address] [place], [address] GAP 2 Low 5-15 [facility] Comment on above: Performed By: #### L 500.4050, L100.0100, L3100.2300 ####[facility] [address] [place], [address] GFR/1.73 sq M.predicted among non-blacks MDRD (S/P/Bld) [Vol rate/Area] 65 mL/min/{1.73_m2} Normal >60 [facility] Comment on above: Result Comment: Non- GFR Calc Performed By: #### L 500.4050, L100.0100, L3100.2300 ####[facility] [address] [place], [address] Globulin (S) [Mass/Vol] 3.6 g/dL Normal 2.2-4.2 [facility] Comment on above: Performed By: #### L 500.4050, L100.0100, L3100.2300 ####[facility] [address] [place], [address] Glucose [Mass/Vol] 105 mg/dL Normal 74-106 [facility] Comment on above: Result Comment: Fast ing Glucose result from 100 to 125 mg/dLsuggests IMPAIRED HOMEOSTASIS per A.D.A. criteria. Performed By: #### L 500.4050, L100.0100, L3100.2300 ####[facility] [address] [place], [address] Potassium [Moles/Vol] 4.0 mmol/L Normal 3.5-5.1 [facility] Comment on above: Performed By: #### L 500.4050, L100.0100, L3100.2300 ####[facility] [address] [place], [address] Sodium [Moles/Vol] 136 mmol/L Normal 136-145 [facility] Comment on above: Performed By: #### L 500.4050, L100.0100, L3100.2300 ####[facility] [address] [place], [address] T PROT 7.2 g/dL Normal 6.4-8.2 [facility] Comment on above: Performed By: #### L 500.4050, L100.0100, L3100.2300 ####[facility] [address] [place], [address] Urea nitrogen [Mass/Vol] 17 mg/dL Normal 7-18 [facility] Comment on above: Performed By: #### L 500.4050, L100.0100, L3100.2300 ####[facility] [address] [place], [address] Estimated glomerular filtrat ion rate (GFR) AmericanOrdered By: Papi Hernandez on 07-18-2024 Estimated GFR (MDRD) Amer 79 mL/min >60 [facility] Comment on above: GFR Calc Oncology Visit Reporton - Oncology Visit Report Normal [facility] CBC W/Diff, Automatedon 12- Absolute Lymph 1.59 X10 3/uL Normal 0.83-4.51 [facility] Comment on above: Performed By: #### L 300.3900, L100.0100 ####[facility] [address] [place], [address] Absolute Neut 3.4 X10 3/uL Normal 2.0-7.7 [facility] Comment on above: Performed By: #### L 300.3900, L100.0100 ####[facility] [address] [place], [address] Basophils/100 WBC (Bld) 0.5 % Normal 0-1 [facility] Comment on above: Performed By: #### L 300.3900, L100.0100 ####[facility] [address] [place], [address] Eosinophils/100 WBC (Bld) 4.7 % Normal 0-5 [facility] Comment on above: Performed By: #### L 300.3900, L100.0100 ####[facility] [address] [place], [address] Erythrocyte distribution width (RBC) [Ratio] 17.5 % High 11.6-14.6 [facility] Comment on above: Performed By: #### L 300.3900, L100.0100 ####[facility] [address] [place], [address] Hematocrit (Bld) [Volume fraction] 36.9 % Low 40-54 [facility] Comment on above: Performed By: #### L 300.3900, L100.0100 ####[facility] [address] [place], [address] Hemoglobin (Bld) [Mass/Vol] 11.5 g/dL Low 13.0-16.5 [facility] Comment on above: Performed By: #### L 300.3900, L100.0100 ####[facility] [address] [place], [address] IG% 0.300 Normal 0.0-0.9 [facility] Comment on above: Result Comment: IG% - Immature Granulocytes (promyelocytes, myelocytes andmetamyelocytes) > 1% indicates that a LEFT SHIFT is Present. Performed By: #### L 300.3900, L100.0100 ####[facility] [address] [place], [address] Lymphocytes/100 WBC (Bld) 26.6 % Normal 19-41 [facility] Comment on above: Performed By: #### L 300.3900, L100.0100 ####[facility] [address] [place], [address] MCH (RBC) [Entitic mass] 27.1 pg Normal 27.0-32.0 [facility] Comment on above: Performed By: #### L 300.3900, L100.0100 ####[facility] [address] [place], [address] MCHC (RBC) [Mass/Vol] 31.2 g/dL Low 32-36 [facility] Comment on above: Performed By: #### L 300.3900, L100.0100 ####[facility] [address] [place], [address] MCV (RBC) [Entitic vol] 87.0 fL Normal 80-94 [facility] Comment on above: Performed By: #### L 300.3900, L100.0100 ####[facility] [address] [place], [address] Monocytes/100 WBC (Bld) 10.5 % High 0-10 [facility] Comment on above: Performed By: #### L 300.3900, L100.0100 ####[facility] [address] [place], [address] Neutrophils/100 WBC (Bld) 57.4 % Normal 47-70 [facility] Comment on above: Performed By: #### L 300.3900, L100.0100 ####[facility] [address] [place], [address] Nucleated RBC (Bld) [#/Vol] 0 10*3/uL Normal 0-5 [facility] Comment on above: Performed By: #### L 300.3900, L100.0100 ####[facility] [address] [place], [address] Platelet mean volume (Bld) [Entitic vol] 9.2 fL Normal 6.2-12.0 [facility] Comment on above: Performed By: #### L 300.3900, L100.0100 ####[facility] [address] [place], [address] Platelets (Bld) [#/Vol] 316 10*3/uL Normal 150-450 [facility] Comment on above: Performed By: #### L 300.3900, L100.0100 ####[facility] [address] [place], [address] RBC (Bld) [#/Vol] 4.24 10*6/uL Low 4.6-6.2 [facility] Comment on above: Performed By: #### L 300.3900, L100.0100 ####[facility] [address] [place], [address] RDW SD 56.3 fl High 35.1-43.9 [facility] Comment on above: Performed By: #### L 300.3900, L100.0100 ####[facility] [address] [place], [address] WBC (Bld) [#/Vol] 6.0 10*3/uL Normal 4.4-11.0 [facility] Comment on above: Performed By: #### L 300.3900, L100.0100 ####[facility] [address] [place], [address] International normalized rat io (INR) calculationOrdered By: Sunny Mancia on 07-04-2024 INR Coag (Bld) [Relative time] 1.0 {INR} [facility] NATERAon 07-04-2024 NATURA SEE SCANNED REPORT Normal [facility] Comment on above: Performed By: #### L 900.0098 ####[facility] [address] [place], [address] Oncology Visit Reporton Oncology Visit Report Normal [facility] Prothrombin Time w/INRon INR Coag (PPP) [Relative time] 1.0 {INR} Normal [facility] Comment on above: Performed By: #### L 300.3900, L100.0100 ####[facility] [address] [place], [address] PT Coag (PPP) [Time] 12.8 s Normal 11.7-14.9 [facility] Comment on above: Performed By: #### L 300.3900, L100.0100 ####[facility] [address] [place], [address] Prothrombin timeOrdered By: Sunny Mancia on 07-04-2024 PT Coag (PPP) [Time] 12.8 s 11.7-14.9 [facility] Bronchoscopy Reporton 2023 Bronchoscopy Report Normal [facility] CK7 (initial)on 06-22-2024 CK7 (initial) Normal [facility] Comment on above: Performed By: #### P CK7 ####[facility] [address] [place], [address] EGD Reporton 06-22-2024 EGD Report Normal [facility] H Pylori (initial)on 024 H Pylori (initial) Normal [facility] Comment on above: Performed By: #### P H.PYLORI ####[facility] [address] [place], [address] MR/POSTOP.ANEon 06-22-2024 MR/POSTOP.ANE Normal [facility] MR/[id number] 06-22-2024 MR/POSTOPAN2 Normal [facility] Special Stain Group Ion 06-02 Special Stain Group I Normal [facility] Comment on above: Performed By: #### P SSI ####[facility] [address] [place], [address] Surgery Specimen Level Oscar 06-22-2024 Surgery Specimen Level IV Normal [facility] Comment on above: Performed By: #### P SUIV ####[facility] [address] [place], [address] CBC W/Diff, Automatedon 06-01 Absolute Lymph 1.50 X10 3/uL Normal 0.83-4.51 [facility] Comment on above: Order Comment: Comme nts: Post-operatively Performed By: #### L 100.0100 ####[facility] [address] [place], [address] Absolute Neut 5.3 X10 3/uL Normal 2.0-7.7 [facility] Comment on above: Order Comment: Comme nts: Post-operatively Performed By: #### L 100.0100 ####[facility] [address] [place], [address] Basophils/100 WBC (Bld) 0.3 % Normal 0-1 [facility] Comment on above: Order Comment: Comme nts: Post-operatively Performed By: #### L 100.0100 ####[facility] [address] [place], [address] Eosinophils/100 WBC (Bld) 1.8 % Normal 0-5 [facility] Comment on above: Order Comment: Comme nts: Post-operatively Performed By: #### L 100.0100 ####[facility] [address] [place], [address] Erythrocyte distribution width (RBC) [Ratio] 18.0 % High 11.6-14.6 [facility] Comment on above: Order Comment: Comme nts: Post-operatively Performed By: #### L 100.0100 ####[facility] [address] [place], [address] Hematocrit (Bld) [Volume fraction] 36.1 % Low 40-54 [facility] Comment on above: Order Comment: Comme nts: Post-operatively Performed By: #### L 100.0100 ####[facility] [address] [place], [address] Hemoglobin (Bld) [Mass/Vol] 11.3 g/dL Low 13.0-16.5 [facility] Comment on above: Order Comment: Comme nts: Post-operatively Performed By: #### L 100.0100 ####[facility] [address] [place], [address] IG% 0.400 Normal 0.0-0.9 [facility] Comment on above: Order Comment: Comme nts: Post-operatively Result Comment: IG% - Immature Granulocytes (promyelocytes, myelocytes andmetamyelocytes) > 1% indicates that a LEFT SHIFT is Present. Performed By: #### L 100.0100 ####[facility] [address] [place], [address] Lymphocytes/100 WBC (Bld) 19.5 % Normal 19-41 [facility] Comment on above: Order Comment: Comme nts: Post-operatively Performed By: #### L 100.0100 ####[facility] [address] [place], [address] MCH (RBC) [Entitic mass] 27.0 pg Normal 27.0-32.0 [facility] Comment on above: Order Comment: Comme nts: Post-operatively Performed By: #### L 100.0100 ####[facility] [address] [place], [address] MCHC (RBC) [Mass/Vol] 31.3 g/dL Low 32-36 [facility] Comment on above: Order Comment: Comme nts: Post-operatively Performed By: #### L 100.0100 ####[facility] [address] [place], [address] MCV (RBC) [Entitic vol] 86.4 fL Normal 80-94 [facility] Comment on above: Order Comment: Comme nts: Post-operatively Performed By: #### L 100.0100 ####[facility] [address] [place], [address] Monocytes/100 WBC (Bld) 9.2 % Normal 0-10 [facility] Comment on above: Order Comment: Comme nts: Post-operatively Performed By: #### L 100.0100 ####[facility] [address] [place], [address] Neutrophils/100 WBC (Bld) 68.8 % Normal 47-70 [facility] Comment on above: Order Comment: Comme nts: Post-operatively Performed By: #### L 100.0100 ####[facility] [address] [place], [address] Nucleated RBC (Bld) [#/Vol] 0 10*3/uL Normal 0-5 [facility] Comment on above: Order Comment: Comme nts: Post-operatively Performed By: #### L 100.0100 ####[facility] [address] [place], [address] Platelet mean volume (Bld) [Entitic vol] 9.3 fL Normal 6.2-12.0 [facility] Comment on above: Order Comment: Comme nts: Post-operatively Performed By: #### L 100.0100 ####[facility] [facility] [address] [place], [address] Platelets (Bld) [#/Vol] 294 10*3/uL Normal 150-450 [facility] Comment on above: Order Comment: Comme nts: Post-operatively Performed By: #### L 100.0100 ####[facility] [address] [place], [address] RBC (Bld) [#/Vol] 4.18 10*6/uL Low 4.6-6.2 [facility] Comment on above: Order Comment: Comme nts: Post-operatively Performed By: #### L 100.0100 ####[facility] [address] [place], [address] RDW SD 57.7 fl High 35.1-43.9 [facility] Comment on above: Order Comment: Comme nts: Post-operatively Performed By: #### L 100.0100 ####[facility] [address] [place], [address] WBC (Bld) [#/Vol] 7.7 10*3/uL Normal 4.4-11.0 [facility] Comment on above: Order Comment: Comme nts: Post-operatively Performed By: #### L 100.0100 ####[facility] [address] [place], [address] Pulmonary Visit Reporton Pulmonary Visit Report Normal [facility] Basic Metabolic Profile (BMP )on 06-10-2024 BUN/CRE 17.0 RATIO Normal 10-20 [facility] Comment on above: Performed By: #### L 500.2500, L100.0100 ####[facility] [address] [place], [address] CA,Total 8.7 mg/dL Normal 8.5-10.1 [facility] Comment on above: Performed By: #### L 500.2500, L100.0100 ####[facility] [address] [place], [address] Chloride [Moles/Vol] 108 mmol/L High 98-107 [facility] Comment on above: Performed By: #### L 500.2500, L100.0100 ####[facility] [address] [place], [address] CO2 [Moles/Vol] 26.0 mmol/L Normal 21.0-32.0 [facility] Comment on above: Performed By: #### L 500.2500, L100.0100 ####[facility] [address] [place], [address] Creatinine [Mass/Vol] 1.12 mg/dL Normal 0.70-1.30 [facility] Comment on above: Result Comment: The validity of the calculated GFR GFRAA in patients over70 years has not been determined. Clinical correlation isessential. Performed By: #### L 500.2500, L100.0100 ####[facility] [address] [place], [address] ECRCL 49.18 ml/min Normal [facility] Comment on above: Performed By: #### L 500.2500, L100.0100 ####[facility] [address] [place], [address] EST GFR - AA 81 mL/min Normal >60 [facility] Comment on above: Result Comment: Afri can Tristanian GFR Calc Performed By: #### L 500.2500, L100.0100 ####[facility] [address] [place], [address] GAP 4 Low 5-15 [facility] Comment on above: Performed By: #### L 500.2500, L100.0100 ####[facility] [address] [place], [address] GFR/1.73 sq M.predicted among non-blacks MDRD (S/P/Bld) [Vol rate/Area] 67 mL/min/{1.73_m2} Normal >60 [facility] Comment on above: Result Comment: Non- GFR Calc Performed By: #### L 500.2500, L100.0100 ####[facility] [address] [place], [address] Glucose [Mass/Vol] 100 mg/dL Normal 74-106 [facility] Comment on above: Result Comment: Fast ing Glucose result from 100 to 125 mg/dLsuggests IMPAIRED HOMEOSTASIS per A.D.A. criteria. Performed By: #### L 500.2500, L100.0100 ####[facility] [address] [place], [address] Potassium [Moles/Vol] 4.2 mmol/L Normal 3.5-5.1 [facility] Comment on above: Performed By: #### L 500.2500, L100.0100 ####[facility] [address] [place], [address] Sodium [Moles/Vol] 138 mmol/L Normal 136-145 [facility] Comment on above: Performed By: #### L 500.2500, L100.0100 ####[facility] [address] [place], [address] Urea nitrogen [Mass/Vol] 19 mg/dL High 7-18 [facility] Comment on above: Performed By: #### L 500.2500, L100.0100 ####[facility] [address] [place], [address] CBC W/Diff, Automatedon 11-1 0 Absolute Lymph 1.57 X10 3/uL Normal 0.83-4.51 [facility] Comment on above: Performed By: #### L 500.2500, L100.0100 ####[facility] [address] [place], [address] Absolute Neut 3.5 X10 3/uL Normal 2.0-7.7 [facility] Comment on above: Performed By: #### L 500.2500, L100.0100 ####[facility] [address] [place], [address] Basophils/100 WBC (Bld) 0.2 % Normal 0-1 [facility] Comment on above: Performed By: #### L 500.2500, L100.0100 ####[facility] [address] [place], [address] Eosinophils/100 WBC (Bld) 3.9 % Normal 0-5 [facility] Comment on above: Performed By: #### L 500.2500, L100.0100 ####[facility] [address] [place], [address] Erythrocyte distribution width (RBC) [Ratio] 18.6 % High 11.6-14.6 [facility] Comment on above: Performed By: #### L 500.2500, L100.0100 ####[facility] [address] [place], [address] Hematocrit (Bld) [Volume fraction] 32.1 % Low 40-54 [facility] Comment on above: Performed By: #### L 500.2500, L100.0100 ####[facility] [address] [place], [address] Hemoglobin (Bld) [Mass/Vol] 10.2 g/dL Low 13.0-16.5 [facility] Comment on above: Performed By: #### L 500.2500, L100.0100 ####[facility] [address] [place], [address] IG% 0.300 Normal 0.0-0.9 [facility] Comment on above: Result Comment: IG% - Immature Granulocytes (promyelocytes, myelocytes andmetamyelocytes) > 1% indicates that a LEFT SHIFT is Present. Performed By: #### L 500.2500, L100.0100 ####[facility] [address] [place], [address] Lymphocytes/100 WBC (Bld) 25.7 % Normal 19-41 [facility] Comment on above: Performed By: #### L 500.2500, L100.0100 ####[facility] [address] [place], [address] MCH (RBC) [Entitic mass] 27.1 pg Normal 27.0-32.0 [facility] Comment on above: Performed By: #### L 500.2500, L100.0100 ####[facility] [address] [place], [address] MCHC (RBC) [Mass/Vol] 31.8 g/dL Low 32-36 [facility] Comment on above: Performed By: #### L 500.2500, L100.0100 ####[facility] [address] [place], [address] MCV (RBC) [Entitic vol] 85.4 fL Normal 80-94 [facility] Comment on above: Performed By: #### L 500.2500, L100.0100 ####[facility] [address] [place], [address] Monocytes/100 WBC (Bld) 12.4 % High 0-10 [facility] Comment on above: Performed By: #### L 500.2500, L100.0100 ####[facility] [address] [place], [address] Neutrophils/100 WBC (Bld) 57.5 % Normal 47-70 [facility] Comment on above: Performed By: #### L 500.2500, L100.0100 ####[facility] [address] [place], [address] Nucleated RBC (Bld) [#/Vol] 0 10*3/uL Normal 0-5 [facility] Comment on above: Performed By: #### L 500.2500, L100.0100 ####[facility] [address] [place], [address] Platelet mean volume (Bld) [Entitic vol] 9.6 fL Normal 6.2-12.0 [facility] Comment on above: Performed By: #### L 500.2500, L100.0100 ####[facility] [address] [place], [address] Platelets (Bld) [#/Vol] 275 10*3/uL Normal 150-450 [facility] Comment on above: Performed By: #### L 500.2500, L100.0100 ####[facility] [address] [place], [address] RBC (Bld) [#/Vol] 3.76 10*6/uL Low 4.6-6.2 [facility] Comment on above: Performed By: #### L 500.2500, L100.0100 ####[facility] [address] [place], [address] RDW SD 58.0 fl High 35.1-43.9 [facility] Comment on above: Performed By: #### L 500.2500, L100.0100 ####[facility] [address] [place], [address] WBC (Bld) [#/Vol] 6.1 10*3/uL Normal 4.4-11.0 [facility] Comment on above: Performed By: #### L 500.2500, L100.0100 ####[facility] [address] [place], [address] Discharge Instructionon 06-01 Discharge Instruction Normal [facility] BRCon 06-09-2024 RC Normal Neg [facility] Comment on above: Result Comment: [id number] OP RC TRANSFUSED 06/09/24 1143 Performed By: #### B , [facility] ####[facility] [address] [place], [address] CBC W/Diff, Automatedon 11-0 Absolute Lymph 1.40 X10 3/uL Normal 0.83-4.51 [facility] Comment on above: Performed By: #### L 100.0100, L500.4050, L501.5200 ####[facility] [address] [place], [address] Absolute Neut 4.2 X10 3/uL Normal 2.0-7.7 [facility] Comment on above: Performed By: #### L 100.0100, L500.4050, L501.5200 ####[facility] [address] [place], [address] Basophils/100 WBC (Bld) 0.3 % Normal 0-1 [facility] Comment on above: Performed By: #### L 100.0100, L500.4050, L501.5200 ####[facility] [address] [place], [address] Eosinophils/100 WBC (Bld) 3.2 % Normal 0-5 [facility] Comment on above: Performed By: #### L 100.0100, L500.4050, L501.5200 ####[facility] [address] [place], [address] Erythrocyte distribution width (RBC) [Ratio] 19.2 % High 11.6-14.6 [facility] Comment on above: Performed By: #### L 100.0100, L500.4050, L501.5200 ####[facility] [address] [place], [address] Hematocrit (Bld) [Volume fraction] 26.4 % Low 40-54 [facility] Comment on above: Performed By: #### L 100.0100, L500.4050, L501.5200 ####[facility] [address] [place], [address] Hemoglobin (Bld) [Mass/Vol] 8.2 g/dL Low 13.0-16.5 [facility] Comment on above: Performed By: #### L 100.0100, L500.4050, L501.5200 ####[facility] [address] [place], [address] IG% 0.300 Normal 0.0-0.9 [facility] Comment on above: Result Comment: IG% - Immature Granulocytes (promyelocytes, myelocytes andmetamyelocytes) > 1% indicates that a LEFT SHIFT is Present. Performed By: #### L 100.0100, L500.4050, L501.5200 ####[facility] [address] [place], [address] Lymphocytes/100 WBC (Bld) 21.6 % Normal 19-41 [facility] Comment on above: Performed By: #### L 100.0100, L500.4050, L501.5200 ####[facility] [address] [place], [address] MCH (RBC) [Entitic mass] 26.8 pg Low 27.0-32.0 [facility] Comment on above: Performed By: #### L 100.0100, L500.4050, L501.5200 ####[facility] [address] [place], [address] MCHC (RBC) [Mass/Vol] 31.1 g/dL Low 32-36 [facility] Comment on above: Performed By: #### L 100.0100, L500.4050, L501.5200 ####[facility] [address] [place], [address] MCV (RBC) [Entitic vol] 86.3 fL Normal 80-94 [facility] Comment on above: Performed By: #### L 100.0100, L500.4050, L501.5200 ####[facility] [address] [place], [address] Monocytes/100 WBC (Bld) 10.2 % High 0-10 [facility] Comment on above: Performed By: #### L 100.0100, L500.4050, L501.5200 ####[facility] [address] [place], [address] Neutrophils/100 WBC (Bld) 64.4 % Normal 47-70 [facility] Comment on above: Performed By: #### L 100.0100, L500.4050, L501.5200 ####[facility] [address] [place], [address] Nucleated RBC (Bld) [#/Vol] 0 10*3/uL Normal 0-5 [facility] Comment on above: Performed By: #### L 100.0100, L500.4050, L501.5200 ####[facility] [address] [place], [address] Platelet mean volume (Bld) [Entitic vol] 9.8 fL Normal 6.2-12.0 [facility] Comment on above: Performed By: #### L 100.0100, L500.4050, L501.5200 ####[facility] [address] [place], [address] Platelets (Bld) [#/Vol] 262 10*3/uL Normal 150-450 [facility] Comment on above: Performed By: #### L 100.0100, L500.4050, L501.5200 ####[facility] [address] [place], [address] RBC (Bld) [#/Vol] 3.06 10*6/uL Low 4.6-6.2 [facility] Comment on above: Performed By: #### L 100.0100, L500.4050, L501.5200 ####[facility] [address] [place], [address] RDW SD 59.4 fl High 35.1-43.9 [facility] Comment on above: Performed By: #### L 100.0100, L500.4050, L501.5200 ####[facility] [address] [place], [address] WBC (Bld) [#/Vol] 6.5 10*3/uL Normal 4.4-11.0 [facility] Comment on above: Performed By: #### L 100.0100, L500.4050, L501.5200 ####[facility] [address] [place], [address] Comprehensive Metabolic Prof ilon 06-09-2024 Albumin [Mass/Vol] 2.9 g/dL Low 3.2-5.0 [facility] Comment on above: Performed By: #### L 100.0100, L500.4050, L501.5200 ####[facility] [address] [place], [address] Albumin/Globulin [Mass ratio] 1.1 {ratio} Normal 0.9-2.4 [facility] Comment on above: Performed By: #### L 100.0100, L500.4050, L501.5200 ####[facility] [address] [place], [address] ALK P 76 U/L Normal 45-117 [facility] Comment on above: Performed By: #### L 100.0100, L500.4050, L501.5200 ####[facility] [address] [place], [address] ALT [Catalytic activity/Vol] 12 U/L Low 16-61 [facility] Comment on above: Performed By: #### L 100.0100, L500.4050, L501.5200 ####[facility] [address] [place], [address] AST [Catalytic activity/Vol] 14 U/L Low 15-37 [facility] Comment on above: Performed By: #### L 100.0100, L500.4050, L501.5200 ####[facility] [address] [place], [address] Bilirubin [Mass/Vol] 0.60 mg/dL Normal 0.20-1.00 [facility] Comment on above: Result Comment: For patients on eltrombopag therapy, use of Dimension Dexter TBIL is not recommended. Performed By: #### L 100.0100, L500.4050, L501.5200 ####[facility] [address] [place], [address] BUN/CRE 19.6 RATIO Normal 10-20 [facility] Comment on above: Performed By: #### L 100.0100, L500.4050, L501.5200 ####[facility] [address] [place], [address] CA,Total 7.9 mg/dL Low 8.5-10.1 [facility] Comment on above: Performed By: #### L 100.0100, L500.4050, L501.5200 ####[facility] [address] [place], [address] Chloride [Moles/Vol] 105 mmol/L Normal 98-107 [facility] Comment on above: Performed By: #### L 100.0100, L500.4050, L501.5200 ####[facility] [address] [place], [address] CO2 [Moles/Vol] 24.0 mmol/L Normal 21.0-32.0 [facility] Comment on above: Performed By: #### L 100.0100, L500.4050, L501.5200 ####[facility] [address] [place], [address] Creatinine [Mass/Vol] 1.12 mg/dL Normal 0.70-1.30 [facility] Comment on above: Result Comment: The validity of the calculated GFR GFRAA in patients over70 years has not been determined. Clinical correlation isessential. Performed By: #### L 100.0100, L500.4050, L501.5200 ####[facility] [address] [place], [address] ECRCL 49.18 ml/min Normal [facility] Comment on above: Performed By: #### L 100.0100, L500.4050, L501.5200 ####[facility] [address] [place], [address] EST GFR - AA 81 mL/min Normal >60 [facility] Comment on above: Result Comment: Afri can Tristanian GFR Calc Performed By: #### L 100.0100, L500.4050, L501.5200 ####[facility] [address] [place], [address] GAP 5 Normal 5-15 [facility] Comment on above: Performed By: #### L 100.0100, L500.4050, L501.5200 ####[facility] [address] [place], [address] GFR/1.73 sq M.predicted among non-blacks MDRD (S/P/Bld) [Vol rate/Area] 67 mL/min/{1.73_m2} Normal >60 [facility] Comment on above: Result Comment: Non- GFR Calc Performed By: #### L 100.0100, L500.4050, L501.5200 ####[facility] [address] [place], [address] Globulin (S) [Mass/Vol] 2.6 g/dL Normal 2.2-4.2 [facility] Comment on above: Performed By: #### L 100.0100, L500.4050, L501.5200 ####[facility] [address] [place], [address] Glucose [Mass/Vol] 103 mg/dL Normal 74-106 [facility] Comment on above: Result Comment: Fast ing Glucose result from 100 to 125 mg/dLsuggests IMPAIRED HOMEOSTASIS per A.D.A. criteria. Performed By: #### L 100.0100, L500.4050, L501.5200 ####[facility] [address] [place], [address] Potassium [Moles/Vol] 3.9 mmol/L Normal 3.5-5.1 [facility] Comment on above: Performed By: #### L 100.0100, L500.4050, L501.5200 ####[facility] [address] [place], [address] Sodium [Moles/Vol] 135 mmol/L Low 136-145 [facility] Comment on above: Performed By: #### L 100.0100, L500.4050, L501.5200 ####[facility] [address] [place], [address] T PROT 5.5 g/dL Low 6.4-8.2 [facility] Comment on above: Performed By: #### L 100.0100, L500.4050, L501.5200 ####[facility] [address] [place], [address] Urea nitrogen [Mass/Vol] 22 mg/dL High 7-18 [facility] Comment on above: Performed By: #### L 100.0100, L500.4050, L501.5200 ####[facility] [address] [place], [address] HH, Hemoglobin AND Hematocri ton 06-09-2024 Hematocrit (Bld) [Volume fraction] 27.8 % Low 40-54 [facility] Comment on above: Performed By: #### L 100.0600 ####[facility] [address] [place], [address] Hemoglobin (Bld) [Mass/Vol] 9.0 g/dL Low 13.0-16.5 [facility] Comment on above: Performed By: #### L 100.0600 ####[facility] [address] [place], [address] L501.4020on 06-09-2024 TROPONIN-I HS 88 pg/mL High 3.0-78.0 [facility] Comment on above: Order Comment: 'TROP ' Serial specimen #1, #2 or #3: 3 Result Comment: Plea se Note: New Test Units and Gender Specific Reference Ranges. For more information see Policy Stat Procedure Dexter High Sensitivity Troponin (TNIH) and attachments. Performed By: #### L 501.4020 ####[facility] [address] [place], [address] Magnesiumon 06-09-2024 Magnesium [Mass/Vol] 1.8 mg/dL Normal 1.6-2.6 [facility] Comment on above: Performed By: #### L 100.0100, L500.4050, L501.5200 ####[facility] [address] [place], [address] Type AND Screenon 06-09-2024 Ab SCREEN GEL Negative Normal [facility] Comment on above: Order Comment: CMV N EG? NNumber of units to transfuse: 1Reason for Ordering Blood: AcuteAre the blood/blood products to be transfused? YIs the patient having/had surgery? Claudine Goodman Performed By: #### B PEAR[place], [facility] ####[facility] [address] [place], [address] ABO and Rh group Nom (Bld) Blood group O Rh(D) positive Normal [facility] Comment on above: Order Comment: CMV N EG? NNumber of units to transfuse: 1Reason for Ordering Blood: AcuteAre the blood/blood products to be transfused? YIs the patient having/had surgery? Claudine Goodman Performed By: #### B [place], [facility] ####[facility] [address] [place], [address] 12 Lead EKGon 06-08-2024 12 Lead EKG Normal [facility] BNP,B-Type NATRIURETIC PEPTI Иван 06-08-2024 Natriuretic peptide B (Bld) [Mass/Vol] 109.8 pg/mL High 0-100 [facility] Comment on above: Performed By: #### L 500.2500, L503.6620, L300.3900, L100.0100, L501.5425 ####[facility] [address] [place], [address] Basic Metabolic Profile (BMP )on 06-08-2024 BUN/CRE 18.2 RATIO Normal 10-20 [facility] Comment on above: Order Comment: 1Y Performed By: #### L 500.2500, L503.6620, L300.3900, L100.0100, L501.5425 ####[facility] [address] [place], [place], [address] CA,Total 9.4 mg/dL Normal 8.5-10.1 [facility] Comment on above: Order Comment: 1Y Performed By: #### L 500.2500, L503.6620, L300.3900, L100.0100, L501.5425 ####[facility] [address] [place], [address] Chloride [Moles/Vol] 105 mmol/L Normal 98-107 [facility] Comment on above: Order Comment: 1Y Performed By: #### L 500.2500, L503.6620, L300.3900, L100.0100, L501.5425 ####[facility] [address] [place], [address] CO2 [Moles/Vol] 23.0 mmol/L Normal 21.0-32.0 [facility] Comment on above: Order Comment: 1Y Performed By: #### L 500.2500, L503.6620, L300.3900, L100.0100, L501.5425 ####[facility] [address] [place], [address] Creatinine [Mass/Vol] 1.21 mg/dL Normal 0.70-1.30 [facility] Comment on above: Order Comment: 1Y Result Comment: The validity of the calculated GFR GFRAA in patients over70 years has not been determined. Clinical correlation isessential. Performed By: #### L 500.2500, L503.6620, L300.3900, L100.0100, L501.5425 ####[facility] [address] [place], [address] ECRCL 45.52 ml/min Normal [facility] Comment on above: Order Comment: 1Y Performed By: #### L 500.2500, L503.6620, L300.3900, L100.0100, L501.5425 ####[facility] [address] [place], [address] EST GFR - AA 74 mL/min Normal >60 [facility] Comment on above: Order Comment: 1Y Result Comment: Afri can Tristanian GFR Calc Performed By: #### L 500.2500, L503.6620, L300.3900, L100.0100, L501.5425 ####[facility] [address] [place], [address] GAP 8 Normal 5-15 [facility] Comment on above: Order Comment: 1Y Performed By: #### L 500.2500, L503.6620, L300.3900, L100.0100, L501.5425 ####[facility] [address] [place], [address] GFR/1.73 sq M.predicted among non-blacks MDRD (S/P/Bld) [Vol rate/Area] 61 mL/min/{1.73_m2} Normal >60 [facility] Comment on above: Order Comment: 1Y Result Comment: Non- GFR Calc Performed By: #### L 500.2500, L503.6620, L300.3900, L100.0100, L501.5425 ####[facility] [address] [place], [address] Glucose [Mass/Vol] 127 mg/dL High 74-106 [facility] [facility] Comment on above: Order Comment: 1Y Result Comment: Fast ing Glucose result greater than or equal to 126 mg/dLsuggests DIABETES MELLITUS per A.D.A. criteria. Performed By: #### L 500.2500, L503.6620, L300.3900, L100.0100, L501.5425 ####[facility] [address] [place], [address] Potassium [Moles/Vol] 3.8 mmol/L Normal 3.5-5.1 [facility] Comment on above: Order Comment: 1Y Performed By: #### L 500.2500, L503.6620, L300.3900, L100.0100, L501.5425 ####[facility] [address] [place], [address] Sodium [Moles/Vol] 136 mmol/L Normal 136-145 [facility] Comment on above: Order Comment: 1Y Performed By: #### L 500.2500, L503.6620, L300.3900, L100.0100, L501.5425 ####[facility] [address] [place], [address] Urea nitrogen [Mass/Vol] 22 mg/dL High 7-18 [facility] Comment on above: Order Comment: 1Y Performed By: #### L 500.2500, L503.6620, L300.3900, L100.0100, L501.5425 ####[facility] [address] [place], [address] Biopsy/Inj or Needle Placeme nton --2023 Biopsy/Inj or Needle Placement Normal [facility] CBC W/Diff, Automatedon 11-0 Absolute Lymph 0.97 X10 3/uL Normal 0.83-4.51 [facility] Comment on above: Performed By: #### L 100.0100 ####[facility] [address] [place], [address] Absolute Neut 5.5 X10 3/uL Normal 2.0-7.7 [facility] Comment on above: Performed By: #### L 100.0100 ####[facility] [address] [place], [address] Basophils/100 WBC (Bld) 0.1 % Normal 0-1 [facility] Comment on above: Performed By: #### L 100.0100 ####[facility] [address] [place], [address] Eosinophils/100 WBC (Bld) 1.3 % Normal 0-5 [facility] Comment on above: Performed By: #### L 100.0100 ####[facility] [address] [place], [address] Erythrocyte distribution width (RBC) [Ratio] 18.9 % High 11.6-14.6 [facility] Comment on above: Performed By: #### L 100.0100 ####[facility] [address] [place], [address] Hematocrit (Bld) [Volume fraction] 27.6 % Low 40-54 [facility] Comment on above: Performed By: #### L 100.0100 ####[facility] [address] [place], [address] Hemoglobin (Bld) [Mass/Vol] 8.7 g/dL Low 13.0-16.5 [facility] Comment on above: Performed By: #### L 100.0100 ####[facility] [address] [place], [address] IG% 0.400 Normal 0.0-0.9 [facility] Comment on above: Result Comment: IG% - Immature Granulocytes (promyelocytes, myelocytes andmetamyelocytes) > 1% indicates that a LEFT SHIFT is Present. Performed By: #### L 100.0100 ####[facility] [address] [place], [address] Lymphocytes/100 WBC (Bld) 13.5 % Low 19-41 [facility] Comment on above: Performed By: #### L 100.0100 ####[facility] [address] [place], [address] MCH (RBC) [Entitic mass] 27.2 pg Normal 27.0-32.0 [facility] Comment on above: Performed By: #### L 100.0100 ####[facility] [address] [place], [address] MCHC (RBC) [Mass/Vol] 31.5 g/dL Low 32-36 [facility] Comment on above: Performed By: #### L 100.0100 ####[facility] [address] [place], [address] MCV (RBC) [Entitic vol] 86.3 fL Normal 80-94 [facility] Comment on above: Performed By: #### L 100.0100 ####[facility] [address] [place], [address] Monocytes/100 WBC (Bld) 8.1 % Normal 0-10 [facility] Comment on above: Performed By: #### L 100.0100 ####[facility] [address] [place], [address] Neutrophils/100 WBC (Bld) 76.6 % High 47-70 [facility] Comment on above: Performed By: #### L 100.0100 ####[facility] [address] [place], [address] Nucleated RBC (Bld) [#/Vol] 0 10*3/uL Normal 0-5 [facility] Comment on above: Performed By: #### L 100.0100 ####[facility] [address] [place], [address] Platelet mean volume (Bld) [Entitic vol] 9.1 fL Normal 6.2-12.0 [facility] Comment on above: Performed By: #### L 100.0100 ####[facility] [address] [place], [address] Platelets (Bld) [#/Vol] 265 10*3/uL Normal 150-450 [facility] Comment on above: Performed By: #### L 100.0100 ####[facility] [address] [place], [address] RBC (Bld) [#/Vol] 3.20 10*6/uL Low 4.6-6.2 [facility] Comment on above: Performed By: #### L 100.0100 ####[facility] [address] [place], [address] RDW SD 58.9 fl High 35.1-43.9 [facility] Comment on above: Performed By: #### L 100.0100 ####[facility] [address] [place], [address] WBC (Bld) [#/Vol] 7.2 10*3/uL Normal 4.4-11.0 [facility] Comment on above: Performed By: #### L 100.0100 ####[facility] [address] [place], [address] Absolute Lymph 1.94 X10 3/uL Normal 0.83-4.51 [facility] Comment on above: Performed By: #### L 500.2500, L503.6620, L300.3900, L100.0100, L501.5425 ####[facility] [address] [place], [address] Absolute Neut 10.2 X10 3/uL High 2.0-7.7 [facility] Comment on above: Performed By: #### L 500.2500, L503.6620, L300.3900, L100.0100, L501.5425 ####[facility] [address] [place], [address] Basophils/100 WBC (Bld) 0.2 % Normal 0-1 [facility] Comment on above: Performed By: #### L 500.2500, L503.6620, L300.3900, L100.0100, L501.5425 ####[facility] [address] [place], [address] Eosinophils/100 WBC (Bld) 1.6 % Normal 0-5 [facility] Comment on above: Performed By: #### L 500.2500, L503.6620, L300.3900, L100.0100, L501.5425 ####[facility] [address] [place], [address] Erythrocyte distribution width (RBC) [Ratio] 18.9 % High 11.6-14.6 [facility] Comment on above: Performed By: #### L 500.2500, L503.6620, L300.3900, L100.0100, L501.5425 ####[facility] [address] [place], [address] Hematocrit (Bld) [Volume fraction] 35.8 % Low 40-54 [facility] Comment on above: Performed By: #### L 500.2500, L503.6620, L300.3900, L100.0100, L501.5425 ####[facility] [address] [place], [address] Hemoglobin (Bld) [Mass/Vol] 11.1 g/dL Low 13.0-16.5 [facility] Comment on above: Performed By: #### L 500.2500, L503.6620, L300.3900, L100.0100, L501.5425 ####[facility] [address] [place], [address] IG% 0.600 Normal 0.0-0.9 [facility] Comment on above: Result Comment: IG% - Immature Granulocytes (promyelocytes, myelocytes andmetamyelocytes) > 1% indicates that a LEFT SHIFT is Present. Performed By: #### L 500.2500, L503.6620, L300.3900, L100.0100, L501.5425 ####[facility] [address] [place], [address] Lymphocytes/100 WBC (Bld) 14.5 % Low 19-41 [facility] Comment on above: Performed By: #### L 500.2500, L503.6620, L300.3900, L100.0100, L501.5425 ####[facility] [address] [place], [address] MCH (RBC) [Entitic mass] 26.5 pg Low 27.0-32.0 [facility] Comment on above: Performed By: #### L 500.2500, L503.6620, L300.3900, L100.0100, L501.5425 ####[facility] [address] [place], [address] MCHC (RBC) [Mass/Vol] 31.0 g/dL Low 32-36 [facility] Comment on above: Performed By: #### L 500.2500, L503.6620, L300.3900, L100.0100, L501.5425 ####[facility] [address] [place], [address] MCV (RBC) [Entitic vol] 85.4 fL Normal 80-94 [facility] Comment on above: Performed By: #### L 500.2500, L503.6620, L300.3900, L100.0100, L501.5425 ####[facility] [address] [place], [address] Monocytes/100 WBC (Bld) 6.7 % Normal 0-10 [facility] Comment on above: Performed By: #### L 500.2500, L503.6620, L300.3900, L100.0100, L501.5425 ####[facility] [address] [place], [address] Neutrophils/100 WBC (Bld) 76.4 % High 47-70 [facility] Comment on above: Performed By: #### L 500.2500, L503.6620, L300.3900, L100.0100, L501.5425 ####[facility] [address] [place], [address] Nucleated RBC (Bld) [#/Vol] 0 10*3/uL Normal 0-5 [facility] Comment on above: Performed By: #### L 500.2500, L503.6620, L300.3900, L100.0100, L501.5425 ####[facility] [address] [place], [address] Platelet mean volume (Bld) [Entitic vol] 9.8 fL Normal 6.2-12.0 [facility] Comment on above: Performed By: #### L 500.2500, L503.6620, L300.3900, L100.0100, L501.5425 ####[facility] [address] [place], [address] Platelets (Bld) [#/Vol] 372 10*3/uL Normal 150-450 [facility] Comment on above: Performed By: #### L 500.2500, L503.6620, L300.3900, L100.0100, L501.5425 ####[facility] [address] [place], [address] RBC (Bld) [#/Vol] 4.19 10*6/uL Low 4.6-6.2 [facility] Comment on above: Performed By: #### L 500.2500, L503.6620, L300.3900, L100.0100, L501.5425 ####[facility] [address] [place], [address] RDW SD 57.8 fl High 35.1-43.9 [facility] Comment on above: Performed By: #### L 500.2500, L503.6620, L300.3900, L100.0100, L501.5425 ####[facility] [address] [place], [address] WBC (Bld) [#/Vol] 13.4 10*3/uL High 4.4-11.0 [facility] Comment on above: Performed By: #### L 500.2500, L503.6620, L300.3900, L100.0100, L501.5425 ####[facility] [address] [place], [address] Absolute Lymph 1.50 X10 3/uL Normal 0.83-4.51 [facility] Comment on above: Performed By: #### L 300.4310, L100.0100, L300.3900 ####[facility] [address] [place], [address] Absolute Neut 4.2 X10 3/uL Normal 2.0-7.7 [facility] Comment on above: Performed By: #### L 300.4310, L100.0100, L300.3900 ####[facility] [address] [place], [address] Basophils/100 WBC (Bld) 0.4 % Normal 0-1 [facility] Comment on above: Performed By: #### L 300.4310, L100.0100, L300.3900 ####[facility] [address] [place], [address] Eosinophils/100 WBC (Bld) 4.9 % Normal 0-5 [facility] Comment on above: Performed By: #### L 300.4310, L100.0100, L300.3900 ####[facility] [address] [place], [address] Erythrocyte distribution width (RBC) [Ratio] 18.9 % High 11.6-14.6 [facility] Comment on above: Performed By: #### L 300.4310, L100.0100, L300.3900 ####[facility] [address] [place], [address] Hematocrit (Bld) [Volume fraction] 36.2 % Low 40-54 [facility] Comment on above: Performed By: #### L 300.4310, L100.0100, L300.3900 ####[facility] [address] [place], [address] Hemoglobin (Bld) [Mass/Vol] 11.4 g/dL Low 13.0-16.5 [facility] Comment on above: Performed By: #### L 300.4310, L100.0100, L300.3900 ####[facility] [address] [place], [address] IG% 0.400 Normal 0.0-0.9 [facility] Comment on above: Result Comment: IG% - Immature Granulocytes (promyelocytes, myelocytes andmetamyelocytes) > 1% indicates that a LEFT SHIFT is Present. Performed By: #### L 300.4310, L100.0100, L300.3900 ####[facility] [address] [place], [address] Lymphocytes/100 WBC (Bld) 21.6 % Normal 19-41 [facility] Comment on above: Performed By: #### L 300.4310, L100.0100, L300.3900 ####[facility] [address] [place], [address] MCH (RBC) [Entitic mass] 26.8 pg Low 27.0-32.0 [facility] Comment on above: Performed By: #### L 300.4310, L100.0100, L300.3900 ####[facility] [address] [place], [address] MCHC (RBC) [Mass/Vol] 31.5 g/dL Low 32-36 [facility] Comment on above: Performed By: #### L 300.4310, L100.0100, L300.3900 ####[facility] [address] [place], [address] MCV (RBC) [Entitic vol] 85.2 fL Normal 80-94 [facility] Comment on above: Performed By: #### L 300.4310, L100.0100, L300.3900 ####[facility] [address] [place], [address] Monocytes/100 WBC (Bld) 11.8 % High 0-10 [facility] Comment on above: Performed By: #### L 300.4310, L100.0100, L300.3900 ####[facility] [address] [place], [address] Neutrophils/100 WBC (Bld) 60.9 % Normal 47-70 [facility] Comment on above: Performed By: #### L 300.4310, L100.0100, L300.3900 ####[facility] [address] [place], [address] Nucleated RBC (Bld) [#/Vol] 0 10*3/uL Normal 0-5 [facility] Comment on above: Performed By: #### L 300.4310, L100.0100, L300.3900 ####[facility] [address] [place], [address] Platelet mean volume (Bld) [Entitic vol] 9.5 fL Normal 6.2-12.0 [facility] Comment on above: Performed By: #### L 300.4310, L100.0100, L300.3900 ####[facility] [address] [place], [address] Platelets (Bld) [#/Vol] 344 10*3/uL Normal 150-450 [facility] Comment on above: Performed By: #### L 300.4310, L100.0100, L300.3900 ####[facility] [address] [place], [address] RBC (Bld) [#/Vol] 4.25 10*6/uL Low 4.6-6.2 [facility] Comment on above: Performed By: #### L 300.4310, L100.0100, L300.3900 ####[facility] [address] [place], [address] RDW SD 57.6 fl High 35.1-43.9 [facility] Comment on above: Performed By: #### L 300.4310, L100.0100, L300.3900 ####[facility] [address] [place], [address] WBC (Bld) [#/Vol] 6.9 10*3/uL Normal 4.4-11.0 [facility] Comment on above: Performed By: #### L 300.4310, L100.0100, L300.3900 ####[facility] [address] [place], [address] CBC-Complete Blood Cnt No Di ffon 06-08-2024 Erythrocyte distribution width (RBC) [Ratio] 18.8 % High 11.6-14.6 [facility] Comment on above: Performed By: #### L 100.0500 ####[facility] [address] [place], [address] Hematocrit (Bld) [Volume fraction] 30.7 % Low 40-54 [facility] Comment on above: Performed By: #### L 100.0500 ####[facility] [address] [place], [address] Hemoglobin (Bld) [Mass/Vol] 9.8 g/dL Low 13.0-16.5 [facility] Comment on above: Performed By: #### L 100.0500 ####[facility] [address] [place], [address] MCH (RBC) [Entitic mass] 27.1 pg Normal 27.0-32.0 [facility] Comment on above: Performed By: #### L 100.0500 ####[facility] [address] [place], [address] MCHC (RBC) [Mass/Vol] 31.9 g/dL Low 32-36 [facility] Comment on above: Performed By: #### L 100.0500 ####[facility] [address] [place], [address] MCV (RBC) [Entitic vol] 84.8 fL Normal 80-94 [facility] Comment on above: Performed By: #### L 100.0500 ####[facility] [address] [place], [address] Platelet mean volume (Bld) [Entitic vol] 9.1 fL Normal 6.2-12.0 [facility] Comment on above: Performed By: #### L 100.0500 ####[facility] [address] [place], [address] Platelets (Bld) [#/Vol] 284 10*3/uL Normal 150-450 [facility] Comment on above: Performed By: #### L 100.0500 ####[facility] [address] [place], [address] RBC (Bld) [#/Vol] 3.62 10*6/uL Low 4.6-6.2 [facility] Comment on above: Performed By: #### L 100.0500 ####[facility] [address] [place], [address] RDW SD 57.6 fl High 35.1-43.9 [facility] Comment on above: Performed By: #### L 100.0500 ####[facility] [address] [place], [address] WBC (Bld) [#/Vol] 9.9 10*3/uL Normal 4.4-11.0 [facility] Comment on above: Performed By: #### L 100.0500 ####[facility] [address] [place], [address] CTA Chst, Abd, Pel W and/or WOon 06-08-2024 CTA Chst, Abd, Pel W and/or WO Normal [facility] Chest 1 View (Portable)on Chest 1 View (Portable) Normal [facility] Emergency Department Summary on 06-08-2024 Emergency Department Summary Normal [facility] H AND P Exam - Hospitaliston 06-08-2024 H&P Exam - Hospitalist Normal [facility] L501.4020on 06-08-2024 TROPONIN-I HS 96 pg/mL High 3.0-78.0 [facility] Comment on above: Result Comment: Plea se Note: New Test Units and Gender Specific Reference Ranges. For more information see Policy Stat Procedure Dexter High Sensitivity Troponin (TNIH) and attachments. Performed By: #### L 501.4020 ####[facility] [address] [place], [address] L501.5425on 06-08-2024 TROPONIN-I HS 97 pg/mL High 3.0-78.0 [facility] Comment on above: Order Comment: 1Y Result Comment: Plea se Note: New Test Units and Gender Specific Reference Ranges. For more information see Policy Stat Procedure Dexter High Sensitivity Troponin (TNIH) and attachments. Performed By: #### L 500.2500, L503.6620, L300.3900, L100.0100, L501.5425 ####[facility] [address] [place], [address] Lipaseon 06-08-2024 Lipase [Catalytic activity/Vol] 26 U/L Normal 13-75 [facility] Comment on above: Result Comment: Plea se note:LIPASE revised reference range effective 22.New Lipase methodology. Expected to produce lower valuesthan the previous assay method.NEW Reference Range: 13 - 75 U/L Performed By: #### L 500.3400, L501.2450 ####[facility] [address] [place], [address] Liver Profileon 06-08-2024 Albumin [Mass/Vol] 3.6 g/dL Normal 3.2-5.0 [facility] Comment on above: Performed By: #### L 500.3400, L501.2450 ####[facility] [address] [place], [address] ALK P 103 U/L Normal 45-117 [facility] Comment on above: Performed By: #### L 500.3400, L501.2450 ####[facility] [address] [place], [address] ALT [Catalytic activity/Vol] 20 U/L Normal 16-61 [facility] Comment on above: Performed By: #### L 500.3400, L501.2450 ####[facility] [address] [place], [address] AST [Catalytic activity/Vol] 23 U/L Normal 15-37 [facility] Comment on above: Performed By: #### L 500.3400, L501.2450 ####[facility] [address] [place], [address] Bilirubin [Mass/Vol] 0.60 mg/dL Normal 0.20-1.00 [facility] Comment on above: Result Comment: For patients on eltrombopag therapy, use of Dimension Dexter TBIL is not recommended. Performed By: #### L 500.3400, L501.2450 ####[facility] [address] [place], [address] Bilirubin.direct [Mass/Vol] 0.18 mg/dL Normal 0.00-0.30 [facility] Comment on above: Performed By: #### L 500.3400, L501.2450 ####[facility] [address] [place], [address] Globulin (S) [Mass/Vol] 3.5 g/dL Normal 2.2-4.2 [facility] Comment on above: Performed By: #### L 500.3400, L501.2450 ####[facility] [address] [place], [address] T PROT 7.1 g/dL Normal 6.4-8.2 [facility] Comment on above: Performed By: #### L 500.3400, L501.2450 ####[facility] [address] [place], [address] Partial Thromboplast Timeon 06-08-2024 aPTT Coag (Bld) [Time] 32.9 s Normal 24.1-36.2 [facility] Comment on above: Performed By: #### L 300.4310, L100.0100, L300.3900 ####[facility] [address] [place], [address] Prothrombin Time w/INRon INR Coag (PPP) [Relative time] 1.1 {INR} Normal [facility] Comment on above: Performed By: #### L 500.2500, L503.6620, L300.3900, L100.0100, L501.5425 ####[facility] [address] [place], [address] PT Coag (PPP) [Time] 14.3 s Normal 11.7-14.9 [facility] Comment on above: Performed By: #### L 500.2500, L503.6620, L300.3900, L100.0100, L501.5425 ####[facility] [address] [place], [address] INR Coag (PPP) [Relative time] 1.1 {INR} Normal [facility] Comment on above: Performed By: #### L 300.4310, L100.0100, L300.3900 ####[facility] [address] [place], [address] PT Coag (PPP) [Time] 13.9 s Normal 11.7-14.9 [facility] Comment on above: Performed By: #### L 300.4310, L100.0100, L300.3900 ####[facility] [address] [place], [address] Trichrome (control)on 2023 Trichrome (control) Normal [facility] Comment on above: Performed By: #### P TRI ####[facility] [address] [place], [address] 12 Lead EKGon 06-07-2024 12 Lead EKG Normal [facility] Basic Metabolic Profile (BMP )on 06-07-2024 BUN/CRE 18.3 RATIO Normal 10-20 [facility] Comment on above: Performed By: #### L 500.2500, L100.0100 ####[facility] [address] [place], [address] CA,Total 9.7 mg/dL Normal 8.5-10.1 [facility] Comment on above: Performed By: #### L 500.2500, L100.0100 ####[facility] [address] [place], [address] Chloride [Moles/Vol] 103 mmol/L Normal 98-107 [facility] Comment on above: Performed By: #### L 500.2500, L100.0100 ####[facility] [address] [place], [address] CO2 [Moles/Vol] 26.0 mmol/L Normal 21.0-32.0 [facility] Comment on above: Performed By: #### L 500.2500, L100.0100 ####[facility] [address] [place], [address] Creatinine [Mass/Vol] 1.04 mg/dL Normal 0.70-1.30 [facility] Comment on above: Result Comment: The validity of the calculated GFR GFRAA in patients over70 years has not been determined. Clinical correlation isessential. Performed By: #### L 500.2500, L100.0100 ####[facility] [address] [place], [address] ECRCL 52.96 ml/min Normal [facility] Comment on above: Performed By: #### L 500.2500, L100.0100 ####[facility] [address] [place], [address] EST GFR - AA 88 mL/min Normal >60 [facility] Comment on above: Result Comment: Afri can Tristanian GFR Calc Performed By: #### L 500.2500, L100.0100 ####[facility] [address] [place], [address] GAP 7 Normal 5-15 [facility] Comment on above: Performed By: #### L 500.2500, L100.0100 ####[facility] [address] [place], [address] GFR/1.73 sq M.predicted among non-blacks MDRD (S/P/Bld) [Vol rate/Area] 73 mL/min/{1.73_m2} Normal >60 [facility] Comment on above: Result Comment: Non- GFR Calc Performed By: #### L 500.2500, L100.0100 ####[facility] [address] [place], [address] Glucose [Mass/Vol] 101 mg/dL Normal 74-106 [facility] Comment on above: Result Comment: Fast ing Glucose result from 100 to 125 mg/dLsuggests IMPAIRED HOMEOSTASIS per A.D.A. criteria. Performed By: #### L 500.2500, L100.0100 ####[facility] [address] [place], [address] Potassium [Moles/Vol] 4.1 mmol/L Normal 3.5-5.1 [facility] Comment on above: Performed By: #### L 500.2500, L100.0100 ####[facility] [address] [place], [address] Sodium [Moles/Vol] 136 mmol/L Normal 136-145 [facility] Comment on above: Performed By: #### L 500.2500, L100.0100 ####[facility] [address] [place], [address] Urea nitrogen [Mass/Vol] 19 mg/dL High 7-18 [facility] Comment on above: Performed By: #### L 500.2500, L100.0100 ####[facility] [address] [place], [address] CBC W/Diff, Automatedon 11-0 7-2024 Absolute Lymph 1.13 X10 3/uL Normal 0.83-4.51 [facility] Comment on above: Performed By: #### L 500.2500, L100.0100 ####[facility] [address] [place], [address] Absolute Neut 3.7 X10 3/uL Normal 2.0-7.7 [facility] Comment on above: Performed By: #### L 500.2500, L100.0100 ####[facility] [address] [place], [address] Basophils/100 WBC (Bld) 0.4 % Normal 0-1 [facility] Comment on above: Performed By: #### L 500.2500, L100.0100 ####[facility] [address] [place], [address] Eosinophils/100 WBC (Bld) 4.1 % Normal 0-5 [facility] Comment on above: Performed By: #### L 500.2500, L100.0100 ####[facility] [address] [place], [address] Erythrocyte distribution width (RBC) [Ratio] 18.9 % High 11.6-14.6 [facility] Comment on above: Performed By: #### L 500.2500, L100.0100 ####[facility] [address] [place], [address] Hematocrit (Bld) [Volume fraction] 35.0 % Low 40-54 [facility] Comment on above: Performed By: #### L 500.2500, L100.0100 ####[facility] [address] [place], [address] Hemoglobin (Bld) [Mass/Vol] 11.1 g/dL Low 13.0-16.5 [facility] Comment on above: Performed By: #### L 500.2500, L100.0100 ####[facility] [address] [place], [address] IG% 0.400 Normal 0.0-0.9 [facility] Comment on above: Result Comment: IG% - Immature Granulocytes (promyelocytes, myelocytes andmetamyelocytes) > 1% indicates that a LEFT SHIFT is Present. Performed By: #### L 500.2500, L100.0100 ####[facility] [address] [place], [address] Lymphocytes/100 WBC (Bld) 20.0 % Normal 19-41 [facility] Comment on above: Performed By: #### L 500.2500, L100.0100 ####[facility] [address] [place], [address] MCH (RBC) [Entitic mass] 27.1 pg Normal 27.0-32.0 [facility] Comment on above: Performed By: #### L 500.2500, L100.0100 ####[facility] [address] [place], [address] MCHC (RBC) [Mass/Vol] 31.7 g/dL Low 32-36 [facility] Comment on above: Performed By: #### L 500.2500, L100.0100 ####[facility] [address] [place], [address] MCV (RBC) [Entitic vol] 85.4 fL Normal 80-94 [facility] Comment on above: Performed By: #### L 500.2500, L100.0100 ####[facility] [address] [place], [address] Monocytes/100 WBC (Bld) 10.4 % High 0-10 [facility] Comment on above: Performed By: #### L 500.2500, L100.0100 ####[facility] [address] [place], [address] Neutrophils/100 WBC (Bld) 64.7 % Normal 47-70 [facility] Comment on above: Performed By: #### L 500.2500, L100.0100 ####[facility] [address] [place], [address] Nucleated RBC (Bld) [#/Vol] 0 10*3/uL Normal 0-5 [facility] Comment on above: Performed By: #### L 500.2500, L100.0100 ####[facility] [address] [place], [address] Platelet mean volume (Bld) [Entitic vol] 9.5 fL Normal 6.2-12.0 [facility] Comment on above: Performed By: #### L 500.2500, L100.0100 ####[facility] [address] [place], [address] Platelets (Bld) [#/Vol] 301 10*3/uL Normal 150-450 [facility] Comment on above: Performed By: #### L 500.2500, L100.0100 ####[facility] [address] [place], [address] RBC (Bld) [#/Vol] 4.10 10*6/uL Low 4.6-6.2 [facility] Comment on above: Performed By: #### L 500.2500, L100.0100 ####[facility] [address] [place], [address] RDW SD 57.8 fl High 35.1-43.9 [facility] Comment on above: Performed By: #### L 500.2500, L100.0100 ####[facility] [address] [place], [address] WBC (Bld) [#/Vol] 5.7 10*3/uL Normal 4.4-11.0 [facility] Comment on above: Performed By: #### L 500.2500, L100.0100 ####[facility] [address] [place], [address] Emergency Department Summary on 06-07-2024 Emergency Department Summary Normal [facility] Surgery Visit Reporton 06-07 Surgery Visit Report Normal [facility] Oncology Visit Reporton 05-03 Oncology Visit Report Normal [facility] PET/CT Tumor Base -Thigh Ini ton 05-29-2024 PET/CT Tumor Base -Thigh Init Normal [facility] Carcinoembryonic Antigenon 1 CEA 2.2 ng/mL Normal 0.0-4.7 [facility] Comment on above: Order Comment: Speci men Comment: A duplicate report has been generateddue to demographicSpecimen Comment: updates. Result Comment: Nons mokers <3.9 Smokers <5.6[employer] Electrochemiluminescence Immunoassay(ECLIA)Values obtained with different assay methods or kitscannot be used interchangeably. Results cannot beinterpreted as absolute evidence of the presence orabsence of malignant disease.Performed at: - [facility] [id number] Director: Jian Paredes PhD, Phone: [phone] Performed By: #### L 3100.2300, L503.6550 ####[facility] [address] [place], [place], [address] C-reactive protein measureme nt by high sensitivity methodOrdered By: Papi Hernandez on 05-16-2024 C-Reactive Protein Extended Range 5.71 mg/L High 0.0-3.0 [facility] Comment on above: C-Reactive Protein ( CRP) provides useful information for thediagnosis, therapy and monitoring of inflammatory processesand associated diseases. For the evaluation of Relative Riskfor Cardiovascular Disease, a High Sensitivity CRP (HSCRP)should be ordered. C-reactive protein measurement by high sensitivity method 5.71 mg/L High 0.0-3.0 [facility] Comment on above: C-Reactive Protein ( CRP) provides useful information for thediagnosis, therapy and monitoring of inflammatory processesand associated diseases. For the evaluation of Relative Riskfor Cardiovascular Disease, a High Sensitivity CRP (HSCRP)should be ordered. CBC W/Diff, Automatedon 05-01 Absolute Lymph 1.28 X10 3/uL Normal 0.83-4.51 [facility] Comment on above: Performed By: #### L 100.0100, L101.9900, L100.9950, L503.6030, L501.6710, L500.4050, L900.0098 ####[facility] [address] [place], [place], [address] Absolute Neut 3.8 X10 3/uL Normal 2.0-7.7 [facility] Comment on above: Performed By: #### L 100.0100, L101.9900, L100.9950, L503.6030, L501.6710, L500.4050, L900.0098 ####[facility] [address] [place], [address] Basophils/100 WBC (Bld) 0.3 % Normal 0-1 [facility] Comment on above: Performed By: #### L 100.0100, L101.9900, L100.9950, L503.6030, L501.6710, L500.4050, L900.0098 ####[facility] [address] [place], [address] Eosinophils/100 WBC (Bld) 2.6 % Normal 0-5 [facility] Comment on above: Performed By: #### L 100.0100, L101.9900, L100.9950, L503.6030, L501.6710, L500.4050, L900.0098 ####[facility] [address] [place], [address] Erythrocyte distribution width (RBC) [Ratio] 14.2 % Normal 11.6-14.6 [facility] Comment on above: Performed By: #### L 100.0100, L101.9900, L100.9950, L503.6030, L501.6710, L500.4050, L900.0098 ####[facility] [address] [place], [address] Hematocrit (Bld) [Volume fraction] 30.5 % Low 40-54 [facility] Comment on above: Performed By: #### L 100.0100, L101.9900, L100.9950, L503.6030, L501.6710, L500.4050, L900.0098 ####[facility] [address] [place], [address] Hemoglobin (Bld) [Mass/Vol] 9.6 g/dL Low 13.0-16.5 [facility] Comment on above: Performed By: #### L 100.0100, L101.9900, L100.9950, L503.6030, L501.6710, L500.4050, L900.0098 ####[facility] [address] [place], [address] IG% 0.300 Normal 0.0-0.9 [facility] Comment on above: Result Comment: IG% - Immature Granulocytes (promyelocytes, myelocytes andmetamyelocytes) > 1% indicates that a LEFT SHIFT is Present. Performed By: #### L 100.0100, L101.9900, L100.9950, L503.6030, L501.6710, L500.4050, L900.0098 ####[facility] [address] [place], [address] Lymphocytes/100 WBC (Bld) 21.9 % Normal 19-41 [facility] Comment on above: Performed By: #### L 100.0100, L101.9900, L100.9950, L503.6030, L501.6710, L500.4050, L900.0098 ####[facility] [address] [place], [address] MCH (RBC) [Entitic mass] 25.9 pg Low 27.0-32.0 [facility] Comment on above: Performed By: #### L 100.0100, L101.9900, L100.9950, L503.6030, L501.6710, L500.4050, L900.0098 ####[facility] [address] [place], [address] MCHC (RBC) [Mass/Vol] 31.5 g/dL Low 32-36 [facility] Comment on above: Performed By: #### L 100.0100, L101.9900, L100.9950, L503.6030, L501.6710, L500.4050, L900.0098 ####[facility] [address] [place], [address] MCV (RBC) [Entitic vol] 82.2 fL Normal 80-94 [facility] Comment on above: Performed By: #### L 100.0100, L101.9900, L100.9950, L503.6030, L501.6710, L500.4050, L900.0098 ####[facility] [address] [place], [address] Monocytes/100 WBC (Bld) 9.6 % Normal 0-10 [facility] Comment on above: Performed By: #### L 100.0100, L101.9900, L100.9950, L503.6030, L501.6710, L500.4050, L900.0098 ####[facility] [address] [place], [address] Neutrophils/100 WBC (Bld) 65.3 % Normal 47-70 [facility] Comment on above: Performed By: #### L 100.0100, L101.9900, L100.9950, L503.6030, L501.6710, L500.4050, L900.0098 ####[facility] [address] [place], [address] Nucleated RBC (Bld) [#/Vol] 0 10*3/uL Normal 0-5 [facility] Comment on above: Performed By: #### L 100.0100, L101.9900, L100.9950, L503.6030, L501.6710, L500.4050, L900.0098 ####[facility] [address] [place], [address] Platelet mean volume (Bld) [Entitic vol] 9.1 fL Normal 6.2-12.0 [facility] Comment on above: Performed By: #### L 100.0100, L101.9900, L100.9950, L503.6030, L501.6710, L500.4050, L900.0098 ####[facility] [address] [place], [address] Platelets (Bld) [#/Vol] 373 10*3/uL Normal 150-450 [facility] Comment on above: Performed By: #### L 100.0100, L101.9900, L100.9950, L503.6030, L501.6710, L500.4050, L900.0098 ####[facility] [address] [place], [address] RBC (Bld) [#/Vol] 3.71 10*6/uL Low 4.6-6.2 [facility] Comment on above: Performed By: #### L 100.0100, L101.9900, L100.9950, L503.6030, L501.6710, L500.4050, L900.0098 ####[facility] [address] [place], [address] RDW SD 42.2 fl Normal 35.1-43.9 [facility] Comment on above: Performed By: #### L 100.0100, L101.9900, L100.9950, L503.6030, L501.6710, L500.4050, L900.0098 ####[facility] [address] [place], [address] WBC (Bld) [#/Vol] 5.8 10*3/uL Normal 4.4-11.0 [facility] Comment on above: Performed By: #### L 100.0100, L101.9900, L100.9950, L503.6030, L501.6710, L500.4050, L900.0098 ####[facility] [address] [place], [address] CRPon 05-16-2024 C-REACTIVE PROT 5.71 mg/L High 0.0-3.0 [facility] Comment on above: Result Comment: C-Re active Protein (CRP) provides useful information for thediagnosis, therapy and monitoring of inflammatory processesand associated diseases. For the evaluation of Relative Riskfor Cardiovascular Disease, a High Sensitivity CRP (HSCRP)should be ordered. Performed By: #### L 100.0100, L101.9900, L100.9950, L503.6030, L501.6710, L500.4050, L900.0098 ####[facility] [address] [place], [address] Comprehensive Metabolic Prof ilon 05-16-2024 Albumin [Mass/Vol] 3.9 g/dL Normal 3.2-5.0 [facility] Comment on above: Performed By: #### L 100.0100, L101.9900, L100.9950, L503.6030, L501.6710, L500.4050, L900.0098 ####[facility] [address] [place], [address] Albumin/Globulin [Mass ratio] 1.1 {ratio} Normal 0.9-2.4 [facility] Comment on above: Performed By: #### L 100.0100, L101.9900, L100.9950, L503.6030, L501.6710, L500.4050, L900.0098 ####[facility] [address] [place], [address] ALK P 101 U/L Normal 45-117 [facility] Comment on above: Performed By: #### L 100.0100, L101.9900, L100.9950, L503.6030, L501.6710, L500.4050, L900.0098 ####[facility] [address] [place], [address] ALT [Catalytic activity/Vol] 19 U/L Normal 16-61 [facility] Comment on above: Performed By: #### L 100.0100, L101.9900, L100.9950, L503.6030, L501.6710, L500.4050, L900.0098 ####[facility] [address] [place], [address] AST [Catalytic activity/Vol] 15 U/L Normal 15-37 [facility] Comment on above: Performed By: #### L 100.0100, L101.9900, L100.9950, L503.6030, L501.6710, L500.4050, L900.0098 ####[facility] [address] [place], [address] Bilirubin [Mass/Vol] 0.50 mg/dL Normal 0.20-1.00 [facility] Comment on above: Result Comment: For patients on eltrombopag therapy, use of Dimension Dexter TBIL is not recommended. Performed By: #### L 100.0100, L101.9900, L100.9950, L503.6030, L501.6710, L500.4050, L900.0098 ####[facility] [address] [place], [address] BUN/CRE 16.7 RATIO Normal 10-20 [facility] Comment on above: Performed By: #### L 100.0100, L101.9900, L100.9950, L503.6030, L501.6710, L500.4050, L900.0098 ####[facility] [address] [place], [address] CA,Total 9.6 mg/dL Normal 8.5-10.1 [facility] Comment on above: Performed By: #### L 100.0100, L101.9900, L100.9950, L503.6030, L501.6710, L500.4050, L900.0098 ####[facility] [address] [place], [address] Chloride [Moles/Vol] 105 mmol/L Normal 98-107 [facility] Comment on above: Performed By: #### L 100.0100, L101.9900, L100.9950, L503.6030, L501.6710, L500.4050, L900.0098 ####[facility] [address] [place], [address] CO2 [Moles/Vol] 26.0 mmol/L Normal 21.0-32.0 [facility] Comment on above: Performed By: #### L 100.0100, L101.9900, L100.9950, L503.6030, L501.6710, L500.4050, L900.0098 ####[facility] [address] [place], [address] Creatinine [Mass/Vol] 1.14 mg/dL Normal 0.70-1.30 [facility] Comment on above: Result Comment: The validity of the calculated GFR GFRAA in patients over70 years has not been determined. Clinical correlation isessential. Performed By: #### L 100.0100, L101.9900, L100.9950, L503.6030, L501.6710, L500.4050, L900.0098 ####[facility] [address] [place], [address] EST GFR - AA 79 mL/min Normal >60 [facility] Comment on above: Result Comment: Afri can Tristanian GFR Calc Performed By: #### L 100.0100, L101.9900, L100.9950, L503.6030, L501.6710, L500.4050, L900.0098 ####[facility] [address] [place], [address] GAP 4 Low 5-15 [facility] Comment on above: Performed By: #### L 100.0100, L101.9900, L100.9950, L503.6030, L501.6710, L500.4050, L900.0098 ####[facility] [address] [place], [address] GFR/1.73 sq M.predicted among non-blacks MDRD (S/P/Bld) [Vol rate/Area] 66 mL/min/{1.73_m2} Normal >60 [facility] Comment on above: Result Comment: Non- GFR Calc Performed By: #### L 100.0100, L101.9900, L100.9950, L503.6030, L501.6710, L500.4050, L900.0098 ####[facility] [address] [place], [address] Globulin (S) [Mass/Vol] 3.7 g/dL Normal 2.2-4.2 [facility] Comment on above: Performed By: #### L 100.0100, L101.9900, L100.9950, L503.6030, L501.6710, L500.4050, L900.0098 ####[facility] [address] [place], [address] Glucose [Mass/Vol] 102 mg/dL Normal 74-106 [facility] Comment on above: Result Comment: Fast ing Glucose result from 100 to 125 mg/dLsuggests IMPAIRED HOMEOSTASIS per A.D.A. criteria. Performed By: #### L 100.0100, L101.9900, L100.9950, L503.6030, L501.6710, L500.4050, L900.0098 ####[facility] [address] [place], [address] Potassium [Moles/Vol] 4.4 mmol/L Normal 3.5-5.1 [facility] Comment on above: Performed By: #### L 100.0100, L101.9900, L100.9950, L503.6030, L501.6710, L500.4050, L900.0098 ####[facility] [address] [place], [address] Sodium [Moles/Vol] 135 mmol/L Low 136-145 [facility] Comment on above: Performed By: #### L 100.0100, L101.9900, L100.9950, L503.6030, L501.6710, L500.4050, L900.0098 ####[facility] [address] [place], [address] T PROT 7.6 g/dL Normal 6.4-8.2 [facility] Comment on above: Performed By: #### L 100.0100, L101.9900, L100.9950, L503.6030, L501.6710, L500.4050, L900.0098 ####[facility] [address] [place], [address] Urea nitrogen [Mass/Vol] 19 mg/dL High 7-18 [facility] Comment on above: Performed By: #### L 100.0100, L101.9900, L100.9950, L503.6030, L501.6710, L500.4050, L900.0098 ####[facility] [address] [place], [address] Erythrocyte Sed Rateon 05-16 SED RATE 13 mm/hr Normal 0-20 [facility] Comment on above: Performed By: #### L 100.0100, L101.9900, L100.9950, L503.6030, L501.6710, L500.4050, L900.0098 ####[facility] [address] [place], [address] Erythrocyte sedimentation ra teOrdered By: Papi Hernandez on 05-16-2024 ESR (Bld) [Velocity] 13 mm/h 0-20 [facility] Ferritinon 05-16-2024 Ferritin [Mass/Vol] 31 ng/mL Normal 26-388 [facility] Comment on above: Performed By: #### L 3100.2300, L503.6550 ####[facility] [address] [place], [place], [address] Ferritin measurementOrdered By: Papi Hernandez on 05-16-2024 Ferritin [Mass/Vol] 31 ng/mL 26-388 [facility] Hemoglobin (Reticulocytes) [ Entitic mass]Ordered By: Papi Hernandez on 05-16-2024 Reticulocyte Hemoglobin Equivalent 27.6 pg Low 30-35 [facility] Immature reticulocyte fracti onOrdered By: Papi Hernandez on 05-16-2024 Immature Reticulocyte Fraction 16.60 % High 3.00-15.90 [facility] Iron (Unsp spec) [Mass/Mass] Ordered By: Papi Hernandez on 05-16-2024 Iron [Mass/Vol] 29 ug/dL Low 65-175 [facility] Iron measurement (mass/mass) Ordered By: Papi Hernandez on 05-16-2024 Iron (Unsp spec) [Mass/Mass] 29 ug/dL Low 65-175 [facility] Iron saturation [Mass fracti on]Ordered By: Papi Hernandez on 05-16-2024 Iron Saturation 7.2 % Low 15.0-55.0 [facility] Iron+Iron Binding Capacityon 05-16-2024 Iron [Mass/Vol] 29 ug/dL Low 65-175 [facility] Comment on above: Performed By: #### L 100.0100, L101.9900, L100.9950, L503.6030, L501.6710, L500.4050, L900.0098 ####[facility] [address] [place], [address] IRON SATURATION 7.2 Low 15.0-55.0 [facility] Comment on above: Performed By: #### L 100.0100, L101.9900, L100.9950, L503.6030, L501.6710, L500.4050, L900.0098 ####[facility] [address] [place], [place], [id number](285 TIBC 401 ug/dL Normal 250-450 [facility] Comment on above: Performed By: #### L 100.0100, L101.9900, L100.9950, L503.6030, L501.6710, L500.4050, L900.0098 ####[facility] [address] [place], [address] NATERAon 05-16-2024 NATURA SEE SCANNED REPORT Normal [facility] Comment on above: Performed By: #### L 100.0100, L101.9900, L100.9950, L503.6030, L501.6710, L500.4050, L900.0098 ####[facility] [address] [place], [address] Oncology Visit Reporton 05-01 Oncology Visit Report Normal [facility] Retic Panelon 05-16-2024 IM RET FRACTION 16.60 High 3.00-15.90 [facility] Comment on above: Performed By: #### L 100.0100, L101.9900, L100.9950, L503.6030, L501.6710, L500.4050, L900.0098 ####[facility] [address] [place], [address] RET-HE 27.6 pg Low 30-35 [facility] Comment on above: Performed By: #### L 100.0100, L101.9900, L100.9950, L503.6030, L501.6710, L500.4050, L900.0098 ####[facility] [address] [place], [address] Retic Count 1.19 Normal 0.5-1.5 [facility] Comment on above: Performed By: #### L 100.0100, L101.9900, L100.9950, L503.6030, L501.6710, L500.4050, L900.0098 ####[facility] [address] [place], [address] Reticulocyte hemoglobin equi valent (RET-He) measurementOrdered By: Papi Hernandez on 05-16-2024 Hemoglobin (Reticulocytes) [Entitic mass] 27.6 pg Low 30-35 [facility] Reticulocytes Auto (Bld) [#/ Vol]Ordered By: Papi Hernandez on 05-16-2024 Reticulocyte Count 1.19 % 0.5-1.5 [facility] Reticulocytes/100 RBC (Bld) 1.19 % 0.5-1.5 [facility] Serum or plasma iron saturat ion measurement (mass fraction)Ordered By: Papi Hernandez on 05-16-2024 Iron saturation [Mass fraction] 7.2 % Low 15.0-55.0 [facility] TIBCOrdered By: Papi Hernandez on 05-16-2024 Total Iron Binding Capacity 401 ug/dL 250-450 [facility] Surgery Visit Reporton 05-10 Surgery Visit Report Normal [facility] Basic Metabolic Profile (BMP )on 05-07-2024 BUN/CRE 13.7 RATIO Normal 10-20 [facility] Comment on above: Performed By: #### L 100.0100, L500.2500 ####[facility] [address] [place], [address] CA,Total 9.5 mg/dL Normal 8.5-10.1 [facility] Comment on above: Performed By: #### L 100.0100, L500.2500 ####[facility] [address] [place], [address] Chloride [Moles/Vol] 103 mmol/L Normal 98-107 [facility] Comment on above: Performed By: #### L 100.0100, L500.2500 ####[facility] [address] [place], [address] CO2 [Moles/Vol] 25.0 mmol/L Normal 21.0-32.0 [facility] Comment on above: Performed By: #### L 100.0100, L500.2500 ####[facility] [address] [place], [address] Creatinine [Mass/Vol] 1.17 mg/dL Normal 0.70-1.30 [facility] Comment on above: Result Comment: The validity of the calculated GFR GFRAA in patients over70 years has not been determined. Clinical correlation isessential. Performed By: #### L 100.0100, L500.2500 ####[facility] [address] [place], [address] EST GFR - AA 77 mL/min Normal >60 [facility] Comment on above: Result Comment: Afri can Tristanian GFR Calc Performed By: #### L 100.0100, L500.2500 ####[facility] [address] [place], [address] GAP 7 Normal 5-15 [facility] Comment on above: Performed By: #### L 100.0100, L500.2500 ####[facility] [address] [place], [address] GFR/1.73 sq M.predicted among non-blacks MDRD (S/P/Bld) [Vol rate/Area] 64 mL/min/{1.73_m2} Normal >60 [facility] Comment on above: Result Comment: Non- GFR Calc Performed By: #### L 100.0100, L500.2500 ####[facility] [address] [place], [address] Glucose [Mass/Vol] 112 mg/dL High 74-106 [facility] Comment on above: Result Comment: Fast ing Glucose result from 100 to 125 mg/dLsuggests IMPAIRED HOMEOSTASIS per A.D.A. criteria. Performed By: #### L 100.0100, L500.2500 ####[facility] [address] [place], [address] Potassium [Moles/Vol] 4.6 mmol/L Normal 3.5-5.1 [facility] Comment on above: Performed By: #### L 100.0100, L500.2500 ####[facility] [address] [place], [address] Sodium [Moles/Vol] 135 mmol/L Low 136-145 [facility] Comment on above: Performed By: #### L 100.0100, L500.2500 ####[facility] [address] [place], [address] Urea nitrogen [Mass/Vol] 16 mg/dL Normal 7-18 [facility] Comment on above: Performed By: #### L 100.0100, L500.2500 ####[facility] [address] [place], [address] CBC W/Diff, Automatedon 10-0 7-2023 Absolute Lymph 1.28 X10 3/uL Normal 0.83-4.51 [facility] Comment on above: Performed By: #### L 100.0100, L500.2500 ####[facility] [address] [place], [address] Absolute Neut 3.6 X10 3/uL Normal 2.0-7.7 [facility] Comment on above: Performed By: #### L 100.0100, L500.2500 ####[facility] [address] [place], [address] Basophils/100 WBC (Bld) 0.4 % Normal 0-1 [facility] Comment on above: Performed By: #### L 100.0100, L500.2500 ####[facility] [address] [place], [address] Eosinophils/100 WBC (Bld) 1.8 % Normal 0-5 [facility] Comment on above: Performed By: #### L 100.0100, L500.2500 ####[facility] [address] [place], [address] Erythrocyte distribution width (RBC) [Ratio] 14.3 % Normal 11.6-14.6 [facility] Comment on above: Performed By: #### L 100.0100, L500.2500 ####[facility] [address] [place], [address] Hematocrit (Bld) [Volume fraction] 29.4 % Low 40-54 [facility] Comment on above: Performed By: #### L 100.0100, L500.2500 ####[facility] [address] [place], [address] Hemoglobin (Bld) [Mass/Vol] 8.8 g/dL Low 13.0-16.5 [facility] Comment on above: Performed By: #### L 100.0100, L500.2500 ####[facility] [address] [place], [address] IG% 0.500 Normal 0.0-0.9 [facility] Comment on above: Result Comment: IG% - Immature Granulocytes (promyelocytes, myelocytes andmetamyelocytes) > 1% indicates that a LEFT SHIFT is Present. Performed By: #### L 100.0100, L500.2500 ####[facility] [address] [place], [address] Lymphocytes/100 WBC (Bld) 23.0 % Normal 19-41 [facility] Comment on above: Performed By: #### L 100.0100, L500.2500 ####[facility] [address] [place], [address] MCH (RBC) [Entitic mass] 25.4 pg Low 27.0-32.0 [facility] Comment on above: Performed By: #### L 100.0100, L500.2500 ####[facility] [address] [place], [address] MCHC (RBC) [Mass/Vol] 29.9 g/dL Low 32-36 [facility] Comment on above: Performed By: #### L 100.0100, L500.2500 ####[facility] [address] [place], [address] MCV (RBC) [Entitic vol] 85.0 fL Normal 80-94 [facility] Comment on above: Performed By: #### L 100.0100, L500.2500 ####[facility] [address] [place], [address] Monocytes/100 WBC (Bld) 10.4 % High 0-10 [facility] Comment on above: Performed By: #### L 100.0100, L500.2500 ####[facility] [address] [place], [address] Neutrophils/100 WBC (Bld) 63.9 % Normal 47-70 [facility] Comment on above: Performed By: #### L 100.0100, L500.2500 ####[facility] [address] [place], [address] Nucleated RBC (Bld) [#/Vol] 0 10*3/uL Normal 0-5 [facility] Comment on above: Performed By: #### L 100.0100, L500.2500 ####[facility] [address] [place], [address] Platelet mean volume (Bld) [Entitic vol] 9.8 fL Normal 6.2-12.0 [facility] Comment on above: Performed By: #### L 100.0100, L500.2500 ####[facility] [address] [place], [address] Platelets (Bld) [#/Vol] 416 10*3/uL Normal 150-450 [facility] Comment on above: Performed By: #### L 100.0100, L500.2500 ####[facility] [address] [place], [address] RBC (Bld) [#/Vol] 3.46 10*6/uL Low 4.6-6.2 [facility] Comment on above: Performed By: #### L 100.0100, L500.2500 ####[facility] [address] [place], [address] RDW SD 44.5 fl High 35.1-43.9 [facility] Comment on above: Performed By: #### L 100.0100, L500.2500 ####[facility] [address] [place], [address] WBC (Bld) [#/Vol] 5.6 10*3/uL Normal 4.4-11.0 [facility] Comment on above: Performed By: #### L 100.0100, L500.2500 ####[facility] [address] [place], [address] Basic Metabolic Profile (BMP )on 05-01-2024 BUN/CRE 16.2 RATIO Normal 10-20 [facility] Comment on above: Performed By: #### L 100.0100, L500.2500 ####[facility] [address] [place], [address] CA,Total 9.3 mg/dL Normal 8.5-10.1 [facility] Comment on above: Performed By: #### L 100.0100, L500.2500 ####[facility] [address] [place], [address] Chloride [Moles/Vol] 96 mmol/L Low 98-107 [facility] Comment on above: Performed By: #### L 100.0100, L500.2500 ####[facility] [address] [place], [address] CO2 [Moles/Vol] 24.0 mmol/L Normal 21.0-32.0 [facility] Comment on above: Performed By: #### L 100.0100, L500.2500 ####[facility] [address] [place], [address] Creatinine [Mass/Vol] 1.30 mg/dL Normal 0.70-1.30 [facility] Comment on above: Result Comment: The validity of the calculated GFR GFRAA in patients over70 years has not been determined. Clinical correlation isessential. Performed By: #### L 100.0100, L500.2500 ####[facility] [address] [place], [address] ECRCL 42.37 ml/min Normal [facility] Comment on above: Performed By: #### L 100.0100, L500.2500 ####[facility] [address] [place], [address] EST GFR - AA 68 mL/min Normal >60 [facility] Comment on above: Result Comment: Afri can Tristanian GFR Calc Performed By: #### L 100.0100, L500.2500 ####[facility] [address] [place], [address] GAP 9 Normal 5-15 [facility] Comment on above: Performed By: #### L 100.0100, L500.2500 ####[facility] [address] [place], [address] GFR/1.73 sq M.predicted among non-blacks MDRD (S/P/Bld) [Vol rate/Area] 56 mL/min/{1.73_m2} Low >60 [facility] Comment on above: Result Comment: Non- GFR Calc Performed By: #### L 100.0100, L500.2500 ####[facility] [address] [place], [address] Glucose [Mass/Vol] 111 mg/dL High 74-106 [facility] Comment on above: Result Comment: Fast ing Glucose result from 100 to 125 mg/dLsuggests IMPAIRED HOMEOSTASIS per A.D.A. criteria. Performed By: #### L 100.0100, L500.2500 ####[facility] [address] [place], [address] Potassium [Moles/Vol] 4.2 mmol/L Normal 3.5-5.1 [facility] Comment on above: Performed By: #### L 100.0100, L500.2500 ####[facility] [address] [place], [address] Sodium [Moles/Vol] 128 mmol/L Low 136-145 [facility] Comment on above: Performed By: #### L 100.0100, L500.2500 ####[facility] [address] [place], [address] Urea nitrogen [Mass/Vol] 21 mg/dL High 7-18 [facility] Comment on above: Performed By: #### L 100.0100, L500.2500 ####[facility] [address] [place], [address] CBC W/Diff, Automatedon 10-0 -2023 Absolute Lymph 1.58 X10 3/uL Normal 0.83-4.51 [facility] Comment on above: Performed By: #### L 100.0100, L500.2500 ####[facility] [address] [place], [address] Absolute Neut 6.7 X10 3/uL Normal 2.0-7.7 [facility] Comment on above: Performed By: #### L 100.0100, L500.2500 ####[facility] [address] [place], [address] Basophils/100 WBC (Bld) 0.3 % Normal 0-1 [facility] Comment on above: Performed By: #### L 100.0100, L500.2500 ####[facility] [address] [place], [address] Eosinophils/100 WBC (Bld) 3.0 % Normal 0-5 [facility] Comment on above: Performed By: #### L 100.0100, L500.2500 ####[facility] [address] [place], [address] Erythrocyte distribution width (RBC) [Ratio] 14.2 % Normal 11.6-14.6 [facility] Comment on above: Performed By: #### L 100.0100, L500.2500 ####[facility] [address] [place], [address] Hematocrit (Bld) [Volume fraction] 30.5 % Low 40-54 [facility] Comment on above: Performed By: #### L 100.0100, L500.2500 ####[facility] [address] [place], [address] Hemoglobin (Bld) [Mass/Vol] 9.5 g/dL Low 13.0-16.5 [facility] Comment on above: Performed By: #### L 100.0100, L500.2500 ####[facility] [address] [place], [address] IG% 0.800 Normal 0.0-0.9 [facility] Comment on above: Result Comment: IG% - Immature Granulocytes (promyelocytes, myelocytes andmetamyelocytes) > 1% indicates that a LEFT SHIFT is Present. Performed By: #### L 100.0100, L500.2500 ####[facility] [address] [place], [address] Lymphocytes/100 WBC (Bld) 16.4 % Low 19-41 [facility] Comment on above: Performed By: #### L 100.0100, L500.2500 ####[facility] [address] [place], [address] MCH (RBC) [Entitic mass] 25.7 pg Low 27.0-32.0 [facility] Comment on above: Performed By: #### L 100.0100, L500.2500 ####[facility] [address] [place], [address] MCHC (RBC) [Mass/Vol] 31.1 g/dL Low 32-36 [facility] Comment on above: Performed By: #### L 100.0100, L500.2500 ####[facility] [address] [place], [address] MCV (RBC) [Entitic vol] 82.4 fL Normal 80-94 [facility] Comment on above: Performed By: #### L 100.0100, L500.2500 ####[facility] [address] [place], [address] Monocytes/100 WBC (Bld) 9.7 % Normal 0-10 [facility] Comment on above: Performed By: #### L 100.0100, L500.2500 ####[facility] [address] [place], [address] Neutrophils/100 WBC (Bld) 69.8 % Normal 47-70 [facility] Comment on above: Performed By: #### L 100.0100, L500.2500 ####[facility] [address] [place], [address] Nucleated RBC (Bld) [#/Vol] 0 10*3/uL Normal 0-5 [facility] Comment on above: Performed By: #### L 100.0100, L500.2500 ####[facility] [address] [place], [address] Platelet mean volume (Bld) [Entitic vol] 9.7 fL Normal 6.2-12.0 [facility] Comment on above: Performed By: #### L 100.0100, L500.2500 ####[facility] [address] [place], [address] Platelets (Bld) [#/Vol] 440 10*3/uL Normal 150-450 [facility] Comment on above: Performed By: #### L 100.0100, L500.2500 ####[facility] [address] [place], [address] RBC (Bld) [#/Vol] 3.70 10*6/uL Low 4.6-6.2 [facility] Comment on above: Performed By: #### L 100.0100, L500.2500 ####[facility] [address] [place], [address] RDW SD 42.2 fl Normal 35.1-43.9 [facility] Comment on above: Performed By: #### L 100.0100, L500.2500 ####[facility] [address] [place], [address] WBC (Bld) [#/Vol] 9.7 10*3/uL Normal 4.4-11.0 [facility] Comment on above: Performed By: #### L 100.0100, L500.2500 ####[facility] [address] [place], [address] Basic Metabolic Profile (BMP )on 04-30-2024 BUN/CRE 15.6 RATIO Normal 10-20 [facility] Comment on above: Performed By: #### L 100.0100, L500.2500 ####[facility] [address] [place], [address] CA,Total 9.0 mg/dL Normal 8.5-10.1 [facility] Comment on above: Performed By: #### L 100.0100, L500.2500 ####[facility] [address] [place], [address] Chloride [Moles/Vol] 101 mmol/L Normal 98-107 [facility] Comment on above: Performed By: #### L 100.0100, L500.2500 ####[facility] [address] [place], [address] CO2 [Moles/Vol] 24.0 mmol/L Normal 21.0-32.0 [facility] Comment on above: Performed By: #### L 100.0100, L500.2500 ####[facility] [address] [place], [address] Creatinine [Mass/Vol] 1.09 mg/dL Normal 0.70-1.30 [facility] Comment on above: Result Comment: The validity of the calculated GFR GFRAA in patients over70 years has not been determined. Clinical correlation isessential. Performed By: #### L 100.0100, L500.2500 ####[facility] [address] [place], [address] ECRCL 50.54 ml/min Normal [facility] Comment on above: Performed By: #### L 100.0100, L500.2500 ####[facility] [address] [place], [address] EST GFR - AA 84 mL/min Normal >60 [facility] Comment on above: Result Comment: Afri can Tristanian GFR Calc Performed By: #### L 100.0100, L500.2500 ####[facility] [address] [place], [address] GAP 9 Normal 5-15 [facility] Comment on above: Performed By: #### L 100.0100, L500.2500 ####[facility] [address] [place], [address] GFR/1.73 sq M.predicted among non-blacks MDRD (S/P/Bld) [Vol rate/Area] 69 mL/min/{1.73_m2} Normal >60 [facility] Comment on above: Result Comment: Non- GFR Calc Performed By: #### L 100.0100, L500.2500 ####[facility] [address] [place], [address] Glucose [Mass/Vol] 104 mg/dL Normal 74-106 [facility] Comment on above: Result Comment: Fast ing Glucose result from 100 to 125 mg/dLsuggests IMPAIRED HOMEOSTASIS per A.D.A. criteria. Performed By: #### L 100.0100, L500.2500 ####[facility] [address] [place], [address] Potassium [Moles/Vol] 4.0 mmol/L Normal 3.5-5.1 [facility] Comment on above: Performed By: #### L 100.0100, L500.2500 ####[facility] [address] [place], [address] Sodium [Moles/Vol] 134 mmol/L Low 136-145 [facility] Comment on above: Performed By: #### L 100.0100, L500.2500 ####[facility] [address] [place], [address] Urea nitrogen [Mass/Vol] 17 mg/dL Normal 7-18 [facility] Comment on above: Performed By: #### L 100.0100, L500.2500 ####[facility] [address] [place], [address] CBC W/Diff, Automatedon 09-3 0-2023 Absolute Lymph 1.45 X10 3/uL Normal 0.83-4.51 [facility] Comment on above: Performed By: #### L 100.0100, L500.2500 ####[facility] [address] [place], [address] Absolute Neut 5.7 X10 3/uL Normal 2.0-7.7 [facility] Comment on above: Performed By: #### L 100.0100, L500.2500 ####[facility] [address] [place], [address] Basophils/100 WBC (Bld) 0.1 % Normal 0-1 [facility] Comment on above: Performed By: #### L 100.0100, L500.2500 ####[facility] [address] [place], [address] Eosinophils/100 WBC (Bld) 1.3 % Normal 0-5 [facility] Comment on above: Performed By: #### L 100.0100, L500.2500 ####[facility] [address] [place], [address] Erythrocyte distribution width (RBC) [Ratio] 14.0 % Normal 11.6-14.6 [facility] Comment on above: Performed By: #### L 100.0100, L500.2500 ####[facility] [address] [place], [address] Hematocrit (Bld) [Volume fraction] 28.7 % Low 40-54 [facility] Comment on above: Performed By: #### L 100.0100, L500.2500 ####[facility] [address] [place], [address] Hemoglobin (Bld) [Mass/Vol] 9.1 g/dL Low 13.0-16.5 [facility] Comment on above: Performed By: #### L 100.0100, L500.2500 ####[facility] [address] [place], [address] IG% 0.600 Normal 0.0-0.9 [facility] Comment on above: Result Comment: IG% - Immature Granulocytes (promyelocytes, myelocytes andmetamyelocytes) > 1% indicates that a LEFT SHIFT is Present. Performed By: #### L 100.0100, L500.2500 ####[facility] [address] [place], [address] Lymphocytes/100 WBC (Bld) 17.6 % Low 19-41 [facility] Comment on above: Performed By: #### L 100.0100, L500.2500 ####[facility] [address] [place], [address] MCH (RBC) [Entitic mass] 26.0 pg Low 27.0-32.0 [facility] Comment on above: Performed By: #### L 100.0100, L500.2500 ####[facility] [address] [place], [address] MCHC (RBC) [Mass/Vol] 31.7 g/dL Low 32-36 [facility] Comment on above: Performed By: #### L 100.0100, L500.2500 ####[facility] [address] [place], [address] MCV (RBC) [Entitic vol] 82.0 fL Normal 80-94 [facility] Comment on above: Performed By: #### L 100.0100, L500.2500 ####[facility] [address] [place], [address] Monocytes/100 WBC (Bld) 11.8 % High 0-10 [facility] Comment on above: Performed By: #### L 100.0100, L500.2500 ####[facility] [address] [place], [address] Neutrophils/100 WBC (Bld) 68.6 % Normal 47-70 [facility] Comment on above: Performed By: #### L 100.0100, L500.2500 ####[facility] [address] [place], [address] Nucleated RBC (Bld) [#/Vol] 0 10*3/uL Normal 0-5 [facility] Comment on above: Performed By: #### L 100.0100, L500.2500 ####[facility] [address] [place], [address] Platelet mean volume (Bld) [Entitic vol] 9.7 fL Normal 6.2-12.0 [facility] Comment on above: Performed By: #### L 100.0100, L500.2500 ####[facility] [address] [place], [address] Platelets (Bld) [#/Vol] 360 10*3/uL Normal 150-450 [facility] Comment on above: Performed By: #### L 100.0100, L500.2500 ####[facility] [address] [place], [address] RBC (Bld) [#/Vol] 3.50 10*6/uL Low 4.6-6.2 [facility] Comment on above: Performed By: #### L 100.0100, L500.2500 ####[facility] [address] [place], [address] RDW SD 41.8 fl Normal 35.1-43.9 [facility] Comment on above: Performed By: #### L 100.0100, L500.2500 ####[facility] [address] [place], [address] WBC (Bld) [#/Vol] 8.2 10*3/uL Normal 4.4-11.0 [facility] Comment on above: Performed By: #### L 100.0100, L500.2500 ####[facility] [address] [place], [address] Basic Metabolic Profile (BMP )on 04-29-2024 BUN/CRE 13.0 RATIO Normal 10-20 [facility] Comment on above: Performed By: #### L 100.0100, L500.2500 ####[facility] [address] [place], [address] CA,Total 9.1 mg/dL Normal 8.5-10.1 [facility] Comment on above: Performed By: #### L 100.0100, L500.2500 ####[facility] [address] [place], [address] Chloride [Moles/Vol] 101 mmol/L Normal 98-107 [facility] Comment on above: Performed By: #### L 100.0100, L500.2500 ####[facility] [address] [place], [address] CO2 [Moles/Vol] 26.0 mmol/L Normal 21.0-32.0 [facility] Comment on above: Performed By: #### L 100.0100, L500.2500 ####[facility] [address] [place], [address] Creatinine [Mass/Vol] 1.08 mg/dL Normal 0.70-1.30 [facility] Comment on above: Result Comment: The validity of the calculated GFR GFRAA in patients over70 years has not been determined. Clinical correlation isessential. Performed By: #### L 100.0100, L500.2500 ####[facility] [address] [place], [address] ECRCL 51.00 ml/min Normal [facility] Comment on above: Performed By: #### L 100.0100, L500.2500 ####[facility] [address] [place], [address] EST GFR - AA 85 mL/min Normal >60 [facility] Comment on above: Result Comment: Afri can Tristanian GFR Calc Performed By: #### L 100.0100, L500.2500 ####[facility] [address] [place], [address] GAP 6 Normal 5-15 [facility] Comment on above: Performed By: #### L 100.0100, L500.2500 ####[facility] [address] [place], [address] GFR/1.73 sq M.predicted among non-blacks MDRD (S/P/Bld) [Vol rate/Area] 70 mL/min/{1.73_m2} Normal >60 [facility] Comment on above: Result Comment: Non- GFR Calc Performed By: #### L 100.0100, L500.2500 ####[facility] [address] [place], [address] Glucose [Mass/Vol] 109 mg/dL High 74-106 [facility] Comment on above: Result Comment: Fast ing Glucose result from 100 to 125 mg/dLsuggests IMPAIRED HOMEOSTASIS per A.D.A. criteria. Performed By: #### L 100.0100, L500.2500 ####[facility] [address] [place], [address] Potassium [Moles/Vol] 4.1 mmol/L Normal 3.5-5.1 [facility] Comment on above: Performed By: #### L 100.0100, L500.2500 ####[facility] [address] [place], [address] Sodium [Moles/Vol] 133 mmol/L Low 136-145 [facility] Comment on above: Performed By: #### L 100.0100, L500.2500 ####[facility] [address] [place], [address] Urea nitrogen [Mass/Vol] 14 mg/dL Normal 7-18 [facility] Comment on above: Performed By: #### L 100.0100, L500.2500 ####[facility] [address] [place], [address] CBC W/Diff, Automatedon 09-2 Absolute Lymph 1.60 X10 3/uL Normal 0.83-4.51 [facility] Comment on above: Performed By: #### L 100.0100, L500.2500 ####[facility] [address] [place], [address] Absolute Neut 6.7 X10 3/uL Normal 2.0-7.7 [facility] Comment on above: Performed By: #### L 100.0100, L500.2500 ####[facility] [address] [place], [address] Basophils/100 WBC (Bld) 0.1 % Normal 0-1 [facility] Comment on above: Performed By: #### L 100.0100, L500.2500 ####[facility] [address] [place], [address] Eosinophils/100 WBC (Bld) 0.3 % Normal 0-5 [facility] Comment on above: Performed By: #### L 100.0100, L500.2500 ####[facility] [address] [place], [address] Erythrocyte distribution width (RBC) [Ratio] 14.0 % Normal 11.6-14.6 [facility] Comment on above: Performed By: #### L 100.0100, L500.2500 ####[facility] [address] [place], [address] Hematocrit (Bld) [Volume fraction] 27.6 % Low 40-54 [facility] Comment on above: Performed By: #### L 100.0100, L500.2500 ####[facility] [address] [place], [address] Hemoglobin (Bld) [Mass/Vol] 8.6 g/dL Low 13.0-16.5 [facility] Comment on above: Performed By: #### L 100.0100, L500.2500 ####[facility] [address] [place], [address] IG% 0.500 Normal 0.0-0.9 [facility] Comment on above: Result Comment: IG% - Immature Granulocytes (promyelocytes, myelocytes andmetamyelocytes) > 1% indicates that a LEFT SHIFT is Present. Performed By: #### L 100.0100, L500.2500 ####[facility] [address] [place], [address] Lymphocytes/100 WBC (Bld) 17.1 % Low 19-41 [facility] Comment on above: Performed By: #### L 100.0100, L500.2500 ####[facility] [address] [place], [address] MCH (RBC) [Entitic mass] 26.2 pg Low 27.0-32.0 [facility] Comment on above: Performed By: #### L 100.0100, L500.2500 ####[facility] [address] [place], [address] MCHC (RBC) [Mass/Vol] 31.2 g/dL Low 32-36 [facility] Comment on above: Performed By: #### L 100.0100, L500.2500 ####[facility] [address] [place], [address] MCV (RBC) [Entitic vol] 84.1 fL Normal 80-94 [facility] Comment on above: Performed By: #### L 100.0100, L500.2500 ####[facility] [address] [place], [address] Monocytes/100 WBC (Bld) 10.0 % Normal 0-10 [facility] Comment on above: Performed By: #### L 100.0100, L500.2500 ####[facility] [address] [place], [address] Neutrophils/100 WBC (Bld) 72.0 % High 47-70 [facility] Comment on above: Performed By: #### L 100.0100, L500.2500 ####[facility] [address] [place], [address] Nucleated RBC (Bld) [#/Vol] 0 10*3/uL Normal 0-5 [facility] Comment on above: Performed By: #### L 100.0100, L500.2500 ####[facility] [address] [place], [address] Platelet mean volume (Bld) [Entitic vol] 9.8 fL Normal 6.2-12.0 [facility] Comment on above: Performed By: #### L 100.0100, L500.2500 ####[facility] [address] [place], [address] Platelets (Bld) [#/Vol] 345 10*3/uL Normal 150-450 [facility] Comment on above: Performed By: #### L 100.0100, L500.2500 ####[facility] [address] [place], [address] RBC (Bld) [#/Vol] 3.28 10*6/uL Low 4.6-6.2 [facility] Comment on above: Performed By: #### L 100.0100, L500.2500 ####[facility] [address] [place], [address] RDW SD 42.7 fl Normal 35.1-43.9 [facility] Comment on above: Performed By: #### L 100.0100, L500.2500 ####[facility] [address] [place], [address] WBC (Bld) [#/Vol] 9.4 10*3/uL Normal 4.4-11.0 [facility] Comment on above: Performed By: #### L 100.0100, L500.2500 ####[facility] [address] [place], [address] Basic Metabolic Profile (BMP )on 04-28-2024 BUN/CRE 13.7 RATIO Normal 10-20 [facility] Comment on above: Performed By: #### L 100.0500, L500.2500 ####[facility] [address] [place], [address] CA,Total 8.2 mg/dL Low 8.5-10.1 [facility] Comment on above: Performed By: #### L 100.0500, L500.2500 ####[facility] [address] [place], [address] Chloride [Moles/Vol] 101 mmol/L Normal 98-107 [facility] Comment on above: Performed By: #### L 100.0500, L500.2500 ####[facility] [address] [place], [address] CO2 [Moles/Vol] 26.0 mmol/L Normal 21.0-32.0 [facility] Comment on above: Performed By: #### L 100.0500, L500.2500 ####[facility] [address] [place], [address] Creatinine [Mass/Vol] 1.31 mg/dL High 0.70-1.30 [facility] Comment on above: Result Comment: The validity of the calculated GFR GFRAA in patients over70 years has not been determined. Clinical correlation isessential. Performed By: #### L 100.0500, L500.2500 ####[facility] [address] [place], [address] ECRCL 42.05 ml/min Normal [facility] Comment on above: Performed By: #### L 100.0500, L500.2500 ####[facility] [address] [place], [address] EST GFR - AA 68 mL/min Normal >60 [facility] Comment on above: Result Comment: Afri can Tristanian GFR Calc Performed By: #### L 100.0500, L500.2500 ####[facility] [address] [place], [address] GAP 4 Low 5-15 [facility] Comment on above: Performed By: #### L 100.0500, L500.2500 ####[facility] [address] [place], [address] GFR/1.73 sq M.predicted among non-blacks MDRD (S/P/Bld) [Vol rate/Area] 56 mL/min/{1.73_m2} Low >60 [facility] Comment on above: Result Comment: Non- GFR Calc Performed By: #### L 100.0500, L500.2500 ####[facility] [address] [place], [address] Glucose [Mass/Vol] 130 mg/dL High 74-106 [facility] Comment on above: Result Comment: Fast ing Glucose result greater than or equal to 126 mg/dLsuggests DIABETES MELLITUS per A.D.A. criteria. Performed By: #### L 100.0500, L500.2500 ####[facility] [address] [place], [address] Potassium [Moles/Vol] 4.4 mmol/L Normal 3.5-5.1 [facility] Comment on above: Performed By: #### L 100.0500, L500.2500 ####[facility] [address] [place], [address] Sodium [Moles/Vol] 131 mmol/L Low 136-145 [facility] Comment on above: Performed By: #### L 100.0500, L500.2500 ####[facility] [address] [place], [address] Urea nitrogen [Mass/Vol] 18 mg/dL Normal 7-18 [facility] Comment on above: Performed By: #### L 100.0500, L500.2500 ####[facility] [address] [place], [address] CBC-Complete Blood Cnt No Marah riveraon 04-28-2024 Erythrocyte distribution width (RBC) [Ratio] 14.0 % Normal 11.6-14.6 [facility] Comment on above: Performed By: #### L 100.0500, L500.2500 ####[facility] [address] [place], [address] Hematocrit (Bld) [Volume fraction] 26.3 % Low 40-54 [facility] Comment on above: Performed By: #### L 100.0500, L500.2500 ####[facility] [address] [place], [address] Hemoglobin (Bld) [Mass/Vol] 8.1 g/dL Low 13.0-16.5 [facility] Comment on above: Performed By: #### L 100.0500, L500.2500 ####[facility] [address] [place], [address] MCH (RBC) [Entitic mass] 26.1 pg Low 27.0-32.0 [facility] Comment on above: Performed By: #### L 100.0500, L500.2500 ####[facility] [address] [place], [address] MCHC (RBC) [Mass/Vol] 30.8 g/dL Low 32-36 [facility] Comment on above: Performed By: #### L 100.0500, L500.2500 ####[facility] [address] [place], [address] MCV (RBC) [Entitic vol] 84.8 fL Normal 80-94 [facility] Comment on above: Performed By: #### L 100.0500, L500.2500 ####[facility] [address] [place], [address] Platelet mean volume (Bld) [Entitic vol] 10.2 fL Normal 6.2-12.0 [facility] Comment on above: Performed By: #### L 100.0500, L500.2500 ####[facility] [address] [place], [address] Platelets (Bld) [#/Vol] 296 10*3/uL Normal 150-450 [facility] Comment on above: Performed By: #### L 100.0500, L500.2500 ####[facility] [address] [place], [address] RBC (Bld) [#/Vol] 3.10 10*6/uL Low 4.6-6.2 [facility] Comment on above: Performed By: #### L 100.0500, L500.2500 ####[facility] [address] [place], [address] RDW SD 43.3 fl Normal 35.1-43.9 [facility] Comment on above: Performed By: #### L 100.0500, L500.2500 ####[facility] [address] [place], [address] WBC (Bld) [#/Vol] 9.1 10*3/uL Normal 4.4-11.0 [facility] Comment on above: Performed By: #### L 100.0500, L500.2500 ####[facility] [address] [place], [address] Bedside Glucoseon 04-27-2024 FINGERSTICK GLU 113 mg/dL High 74-106 [facility] Comment on above: Result Comment: STELLA FLORES OF PATIENT CARE PER NURSING PROTOCOL Performed By: #### L 501.080 ####[facility] [address] [place], [address] CBC-Complete Blood Cnt No Marah oconnor 04-27-2024 Erythrocyte distribution width (RBC) [Ratio] 13.7 % Normal 11.6-14.6 [facility] Comment on above: Performed By: #### L 100.0500 ####[facility] [address] [place], [address] Hematocrit (Bld) [Volume fraction] 30.5 % Low 40-54 [facility] Comment on above: Performed By: #### L 100.0500 ####[facility] [address] [place], [address] Hemoglobin (Bld) [Mass/Vol] 9.4 g/dL Low 13.0-16.5 [facility] Comment on above: Performed By: #### L 100.0500 ####[facility] [address] [place], [address] MCH (RBC) [Entitic mass] 26.0 pg Low 27.0-32.0 [facility] Comment on above: Performed By: #### L 100.0500 ####[facility] [address] [place], [address] MCHC (RBC) [Mass/Vol] 30.8 g/dL Low 32-36 [facility] Comment on above: Performed By: #### L 100.0500 ####[facility] [address] [place], [address] MCV (RBC) [Entitic vol] 84.3 fL Normal 80-94 [facility] Comment on above: Performed By: #### L 100.0500 ####[facility] [address] [place], [address] Platelet mean volume (Bld) [Entitic vol] 9.7 fL Normal 6.2-12.0 [facility] Comment on above: Performed By: #### L 100.0500 ####[facility] [address] [place], [address] Platelets (Bld) [#/Vol] 346 10*3/uL Normal 150-450 [facility] Comment on above: Performed By: #### L 100.0500 ####[facility] [address] [place], [address] RBC (Bld) [#/Vol] 3.62 10*6/uL Low 4.6-6.2 [facility] Comment on above: Performed By: #### L 100.0500 ####[facility] [address] [place], [address] RDW SD 42.4 fl Normal 35.1-43.9 [facility] Comment on above: Performed By: #### L 100.0500 ####[facility] [address] [place], [address] WBC (Bld) [#/Vol] 7.1 10*3/uL Normal 4.4-11.0 [facility] Comment on above: Performed By: #### L 100.0500 ####[facility] [address] [place], [address] MLH-1 (add)on 04-27-2024 MLH-1 (add) Normal [facility] Comment on above: Performed By: #### P MLH1. ####[facility] [address] [place], [address] MR/POSTOP.ANEon 04-27-2024 MR/POSTOP.ANE Normal [facility] MR/LODJBODV6he 04-27-2024 MR/POSTOPAN2 Normal [facility] Magnesiumon 04-27-2024 Magnesium [Mass/Vol] 1.9 mg/dL Normal 1.6-2.6 [facility] Comment on above: Performed By: #### L 501.5200 ####[facility] [address] [place], [address] Operative Reporton Operative Report Normal [facility] Surgery Specimen Level VIon 04-27-2024 Surgery Specimen Level Normal [facility] Comment on above: Performed By: #### P SUVI ####[facility] [address] [place], [address] Cardiology Visit Reporton Cardiology Visit Report Normal [facility] Surgery Visit Reporton 04-20 Surgery Visit Report Normal [facility] CBC W/Diff, Automatedon 04-01 Absolute Lymph 1.42 X10 3/uL Normal 0.83-4.51 [facility] Comment on above: Performed By: #### L 100.0100 ####[facility] [address] [place], [address] Absolute Neut 3.1 X10 3/uL Normal 2.0-7.7 [facility] Comment on above: Performed By: #### L 100.0100 ####[facility] [address] [place], [address] Basophils/100 WBC (Bld) 0.5 % Normal 0-1 [facility] Comment on above: Performed By: #### L 100.0100 ####[facility] [address] [place], [address] Eosinophils/100 WBC (Bld) 5.9 % High 0-5 [facility] Comment on above: Performed By: #### L 100.0100 ####[facility] [address] [place], [address] Erythrocyte distribution width (RBC) [Ratio] 13.4 % Normal 11.6-14.6 [facility] Comment on above: Performed By: #### L 100.0100 ####[facility] [address] [place], [address] Hematocrit (Bld) [Volume fraction] 30.5 % Low 40-54 [facility] Comment on above: Performed By: #### L 100.0100 ####[facility] [address] [place], [address] Hemoglobin (Bld) [Mass/Vol] 9.3 g/dL Low 13.0-16.5 [facility] Comment on above: Performed By: #### L 100.0100 ####[facility] [address] [place], [address] IG% 0.200 Normal 0.0-0.9 [facility] Comment on above: Result Comment: IG% - Immature Granulocytes (promyelocytes, myelocytes andmetamyelocytes) > 1% indicates that a LEFT SHIFT is Present. Performed By: #### L 100.0100 ####[facility] [address] [place], [address] Lymphocytes/100 WBC (Bld) 25.6 % Normal 19-41 [facility] Comment on above: Performed By: #### L 100.0100 ####[facility] [address] [place], [address] MCH (RBC) [Entitic mass] 26.2 pg Low 27.0-32.0 [facility] Comment on above: Performed By: #### L 100.0100 ####[facility] [address] [place], [address] MCHC (RBC) [Mass/Vol] 30.5 g/dL Low 32-36 [facility] Comment on above: Performed By: #### L 100.0100 ####[facility] [address] [place], [address] MCV (RBC) [Entitic vol] 85.9 fL Normal 80-94 [facility] Comment on above: Performed By: #### L 100.0100 ####[facility] [address] [place], [address] Monocytes/100 WBC (Bld) 12.1 % High 0-10 [facility] Comment on above: Performed By: #### L 100.0100 ####[facility] [address] [place], [address] Neutrophils/100 WBC (Bld) 55.7 % Normal 47-70 [facility] Comment on above: Performed By: #### L 100.0100 ####[facility] [address] [place], [address] Nucleated RBC (Bld) [#/Vol] 0 10*3/uL Normal 0-5 [facility] Comment on above: Performed By: #### L 100.0100 ####[facility] [address] [place], [address] Platelet mean volume (Bld) [Entitic vol] 9.3 fL Normal 6.2-12.0 [facility] Comment on above: Performed By: #### L 100.0100 ####[facility] [address] [place], [address] Platelets (Bld) [#/Vol] 303 10*3/uL Normal 150-450 [facility] Comment on above: Performed By: #### L 100.0100 ####[facility] [address] [place], [address] RBC (Bld) [#/Vol] 3.55 10*6/uL Low 4.6-6.2 [facility] Comment on above: Performed By: #### L 100.0100 ####[facility] [address] [place], [address] RDW SD 42.2 fl Normal 35.1-43.9 [facility] Comment on above: Performed By: #### L 100.0100 ####[facility] [address] [place], [address] WBC (Bld) [#/Vol] 5.6 10*3/uL Normal 4.4-11.0 [facility] Comment on above: Performed By: #### L 100.0100 ####[facility] [address] [place], [address] Basic Metabolic Profile (BMP )on 04-14-2024 BUN/CRE 13.0 RATIO Normal 10-20 [facility] Comment on above: Performed By: #### L 100.0100, L500.2500 ####[facility] [address] [place], [address] CA,Total 8.1 mg/dL Low 8.5-10.1 [facility] Comment on above: Performed By: #### L 100.0100, L500.2500 ####[facility] [address] [place], [address] Chloride [Moles/Vol] 108 mmol/L High 98-107 [facility] Comment on above: Performed By: #### L 100.0100, L500.2500 ####[facility] [address] [place], [address] CO2 [Moles/Vol] 23.0 mmol/L Normal 21.0-32.0 [facility] Comment on above: Performed By: #### L 100.0100, L500.2500 ####[facility] [address] [place], [address] Creatinine [Mass/Vol] 1.23 mg/dL Normal 0.70-1.30 [facility] Comment on above: Result Comment: The validity of the calculated GFR GFRAA in patients over70 years has not been determined. Clinical correlation isessential. Performed By: #### L 100.0100, L500.2500 ####[facility] [address] [place], [address] ECRCL 44.78 ml/min Normal [facility] Comment on above: Performed By: #### L 100.0100, L500.2500 ####[facility] [address] [place], [address] EST GFR - AA 73 mL/min Normal >60 [facility] Comment on above: Result Comment: Afri can Tristanian GFR Calc Performed By: #### L 100.0100, L500.2500 ####[facility] [address] [place], [address] GAP 7 Normal 5-15 [facility] Comment on above: Performed By: #### L 100.0100, L500.2500 ####[facility] [address] [place], [address] GFR/1.73 sq M.predicted among non-blacks MDRD (S/P/Bld) [Vol rate/Area] 60 mL/min/{1.73_m2} Normal >60 [facility] Comment on above: Result Comment: Non- GFR Calc Performed By: #### L 100.0100, L500.2500 ####[facility] [address] [place], [address] Glucose [Mass/Vol] 105 mg/dL Normal 74-106 [facility] Comment on above: Result Comment: Fast ing Glucose result from 100 to 125 mg/dLsuggests IMPAIRED HOMEOSTASIS per A.D.A. criteria. Performed By: #### L 100.0100, L500.2500 ####[facility] [address] [place], [address] Potassium [Moles/Vol] 3.4 mmol/L Low 3.5-5.1 [facility] Comment on above: Performed By: #### L 100.0100, L500.2500 ####[facility] [address] [place], [address] Sodium [Moles/Vol] 138 mmol/L Normal 136-145 [facility] Comment on above: Performed By: #### L 100.0100, L500.2500 ####[facility] [address] [place], [address] Urea nitrogen [Mass/Vol] 16 mg/dL Normal 7-18 [facility] Comment on above: Performed By: #### L 100.0100, L500.2500 ####[facility] [address] [place], [address] CBC W/Diff, Automatedon 04-01-2023 Absolute Lymph 1.52 X10 3/uL Normal 0.83-4.51 [facility] Comment on above: Performed By: #### L 100.0100, L500.2500 ####[facility] [address] [place], [address] Absolute Neut 4.8 X10 3/uL Normal 2.0-7.7 [facility] Comment on above: Performed By: #### L 100.0100, L500.2500 ####[facility] [address] [place], [address] Basophils/100 WBC (Bld) 0.1 % Normal 0-1 [facility] Comment on above: Performed By: #### L 100.0100, L500.2500 ####[facility] [address] [place], [address] Eosinophils/100 WBC (Bld) 3.4 % Normal 0-5 [facility] Comment on above: Performed By: #### L 100.0100, L500.2500 ####[facility] [address] [place], [address] Erythrocyte distribution width (RBC) [Ratio] 13.4 % Normal 11.6-14.6 [facility] Comment on above: Performed By: #### L 100.0100, L500.2500 ####[facility] [address] [place], [address] Hematocrit (Bld) [Volume fraction] 30.9 % Low 40-54 [facility] Comment on above: Performed By: #### L 100.0100, L500.2500 ####[facility] [address] [place], [address] Hemoglobin (Bld) [Mass/Vol] 9.5 g/dL Low 13.0-16.5 [facility] Comment on above: Performed By: #### L 100.0100, L500.2500 ####[facility] [address] [place], [address] IG% 0.300 Normal 0.0-0.9 [facility] Comment on above: Result Comment: IG% - Immature Granulocytes (promyelocytes, myelocytes andmetamyelocytes) > 1% indicates that a LEFT SHIFT is Present. Performed By: #### L 100.0100, L500.2500 ####[facility] [address] [place], [address] Lymphocytes/100 WBC (Bld) 20.1 % Normal 19-41 [facility] Comment on above: Performed By: #### L 100.0100, L500.2500 ####[facility] [address] [place], [address] MCH (RBC) [Entitic mass] 26.2 pg Low 27.0-32.0 [facility] Comment on above: Performed By: #### L 100.0100, L500.2500 ####[facility] [address] [place], [address] MCHC (RBC) [Mass/Vol] 30.7 g/dL Low 32-36 [facility] Comment on above: Performed By: #### L 100.0100, L500.2500 ####[facility] [address] [place], [address] MCV (RBC) [Entitic vol] 85.4 fL Normal 80-94 [facility] Comment on above: Performed By: #### L 100.0100, L500.2500 ####[facility] [address] [place], [address] Monocytes/100 WBC (Bld) 12.2 % High 0-10 [facility] Comment on above: Performed By: #### L 100.0100, L500.2500 ####[facility] [address] [place], [address] Neutrophils/100 WBC (Bld) 63.9 % Normal 47-70 [facility] Comment on above: Performed By: #### L 100.0100, L500.2500 ####[facility] [address] [place], [address] Nucleated RBC (Bld) [#/Vol] 0 10*3/uL Normal 0-5 [facility] Comment on above: Performed By: #### L 100.0100, L500.2500 ####[facility] [address] [place], [address] Platelet mean volume (Bld) [Entitic vol] 9.4 fL Normal 6.2-12.0 [facility] Comment on above: Performed By: #### L 100.0100, L500.2500 ####[facility] [address] [place], [address] Platelets (Bld) [#/Vol] 321 10*3/uL Normal 150-450 [facility] Comment on above: Performed By: #### L 100.0100, L500.2500 ####[facility] [address] [place], [address] RBC (Bld) [#/Vol] 3.62 10*6/uL Low 4.6-6.2 [facility] Comment on above: Performed By: #### L 100.0100, L500.2500 ####[facility] [address] [place], [address] RDW SD 42.0 fl Normal 35.1-43.9 [facility] Comment on above: Performed By: #### L 100.0100, L500.2500 ####[facility] [address] [place], [address] WBC (Bld) [#/Vol] 7.6 10*3/uL Normal 4.4-11.0 [facility] Comment on above: Performed By: #### L 100.0100, L500.2500 ####[facility] [address] [place], [address] MR/PN.GIon 04-14-2024 MR/PN.GI Normal [facility] Basic Metabolic Profile (BMP )on 04-13-2024 BUN/CRE 12.6 RATIO Normal 10-20 [facility] Comment on above: Performed By: #### L 100.0100, L500.2500 ####[facility] [address] [place], [address] CA,Total 8.9 mg/dL Normal 8.5-10.1 [facility] Comment on above: Performed By: #### L 100.0100, L500.2500 ####[facility] [address] [place], [address] Chloride [Moles/Vol] 106 mmol/L Normal 98-107 [facility] Comment on above: Performed By: #### L 100.0100, L500.2500 ####[facility] [address] [place], [address] CO2 [Moles/Vol] 24.0 mmol/L Normal 21.0-32.0 [facility] Comment on above: Performed By: #### L 100.0100, L500.2500 ####[facility] [address] [place], [address] Creatinine [Mass/Vol] 1.19 mg/dL Normal 0.70-1.30 [facility] Comment on above: Result Comment: The validity of the calculated GFR GFRAA in patients over70 years has not been determined. Clinical correlation isessential. Performed By: #### L 100.0100, L500.2500 ####[facility] [address] [place], [address] ECRCL 46.29 ml/min Normal [facility] Comment on above: Performed By: #### L 100.0100, L500.2500 ####[facility] [address] [place], [address] EST GFR - AA 76 mL/min Normal >60 [facility] Comment on above: Result Comment: Afri can Tristanian GFR Calc Performed By: #### L 100.0100, L500.2500 ####[facility] [address] [place], [address] GAP 8 Normal 5-15 [facility] Comment on above: Performed By: #### L 100.0100, L500.2500 ####[facility] [address] [place], [address] GFR/1.73 sq M.predicted among non-blacks MDRD (S/P/Bld) [Vol rate/Area] 63 mL/min/{1.73_m2} Normal >60 [facility] Comment on above: Result Comment: Non- GFR Calc Performed By: #### L 100.0100, L500.2500 ####[facility] [address] [place], [address] Glucose [Mass/Vol] 99 mg/dL Normal 74-106 [facility] Comment on above: Performed By: #### L 100.0100, L500.2500 ####[facility] [address] [place], [address] Potassium [Moles/Vol] 3.6 mmol/L Normal 3.5-5.1 [facility] Comment on above: Performed By: #### L 100.0100, L500.2500 ####[facility] [address] [place], [address] Sodium [Moles/Vol] 138 mmol/L Normal 136-145 [facility] Comment on above: Performed By: #### L 100.0100, L500.2500 ####[facility] [address] [place], [address] Urea nitrogen [Mass/Vol] 15 mg/dL Normal 7-18 [facility] Comment on above: Performed By: #### L 100.0100, L500.2500 ####[facility] [address] [place], [address] CBC W/Diff, Automatedon 04-01-2023 Absolute Lymph 1.30 X10 3/uL Normal 0.83-4.51 [facility] Comment on above: Performed By: #### L 100.0100, L500.2500 ####[facility] [address] [place], [address] Absolute Neut 3.5 X10 3/uL Normal 2.0-7.7 [facility] Comment on above: Performed By: #### L 100.0100, L500.2500 ####[facility] [address] [place], [address] Basophils/100 WBC (Bld) 0.2 % Normal 0-1 [facility] Comment on above: Performed By: #### L 100.0100, L500.2500 ####[facility] [address] [place], [address] Eosinophils/100 WBC (Bld) 2.8 % Normal 0-5 [facility] Comment on above: Performed By: #### L 100.0100, L500.2500 ####[facility] [address] [place], [address] Erythrocyte distribution width (RBC) [Ratio] 13.4 % Normal 11.6-14.6 [facility] Comment on above: Performed By: #### L 100.0100, L500.2500 ####[facility] [address] [place], [address] Hematocrit (Bld) [Volume fraction] 34.1 % Low 40-54 [facility] Comment on above: Performed By: #### L 100.0100, L500.2500 ####[facility] [address] [place], [address] Hemoglobin (Bld) [Mass/Vol] 10.8 g/dL Low 13.0-16.5 [facility] Comment on above: Performed By: #### L 100.0100, L500.2500 ####[facility] [address] [place], [address] IG% 0.300 Normal 0.0-0.9 [facility] Comment on above: Result Comment: IG% - Immature Granulocytes (promyelocytes, myelocytes andmetamyelocytes) > 1% indicates that a LEFT SHIFT is Present. Performed By: #### L 100.0100, L500.2500 ####[facility] [address] [place], [address] Lymphocytes/100 WBC (Bld) 22.6 % Normal 19-41 [facility] Comment on above: Performed By: #### L 100.0100, L500.2500 ####[facility] [address] [place], [address] MCH (RBC) [Entitic mass] 26.7 pg Low 27.0-32.0 [facility] Comment on above: Performed By: #### L 100.0100, L500.2500 ####[facility] [address] [place], [address] MCHC (RBC) [Mass/Vol] 31.7 g/dL Low 32-36 [facility] Comment on above: Performed By: #### L 100.0100, L500.2500 ####[facility] [address] [place], [address] MCV (RBC) [Entitic vol] 84.4 fL Normal 80-94 [facility] Comment on above: Performed By: #### L 100.0100, L500.2500 ####[facility] [address] [place], [address] Monocytes/100 WBC (Bld) 12.5 % High 0-10 [facility] Comment on above: Performed By: #### L 100.0100, L500.2500 ####[facility] [address] [place], [address] Neutrophils/100 WBC (Bld) 61.6 % Normal 47-70 [facility] Comment on above: Performed By: #### L 100.0100, L500.2500 ####[facility] [address] [place], [address] Nucleated RBC (Bld) [#/Vol] 0 10*3/uL Normal 0-5 [facility] Comment on above: Performed By: #### L 100.0100, L500.2500 ####[facility] [address] [place], [address] Platelet mean volume (Bld) [Entitic vol] 9.4 fL Normal 6.2-12.0 [facility] Comment on above: Performed By: #### L 100.0100, L500.2500 ####[facility] [address] [place], [address] Platelets (Bld) [#/Vol] 343 10*3/uL Normal 150-450 [facility] Comment on above: Performed By: #### L 100.0100, L500.2500 ####[facility] [address] [place], [address] RBC (Bld) [#/Vol] 4.04 10*6/uL Low 4.6-6.2 [facility] Comment on above: Performed By: #### L 100.0100, L500.2500 ####[facility] [address] [place], [address] RDW SD 41.8 fl Normal 35.1-43.9 [facility] Comment on above: Performed By: #### L 100.0100, L500.2500 ####[facility] [address] [place], [address] WBC (Bld) [#/Vol] 5.8 10*3/uL Normal 4.4-11.0 [facility] Comment on above: Performed By: #### L 100.0100, L500.2500 ####[facility] [address] [place], [address] Carcinoembryonic Antigenon 0 04-13-2024 CEA 2.7 ng/mL Normal 0.0-4.7 [facility] Comment on above: Result Comment: Nons mokers <3.9 Smokers <5.6[employer] Electrochemiluminescence Immunoassay(ECLIA)Values obtained with different assay methods or kitscannot be used interchangeably. Results cannot beinterpreted as absolute evidence of the presence orabsence of malignant disease.Performed at: [address] [id number] Director: Jian Paredes PhD, Phone: [phone] Performed By: #### L 5190.9515 ####[facility] [address] [place], [address] Colonoscopy Reporton 024 Colonoscopy Report Normal [facility] HER-2-DIONNA (initial)on 2023 HER-2-DIONNA (initial) Normal [facility] Comment on above: Performed By: #### P HER2 ####[facility] [address] [place], [address] MR/POSTOP.ANEon 04-13-2024 MR/POSTOP.ANE Normal [facility] MR/LKXDJANY1jv 04-13-2024 MR/POSTOPAN2 Normal [facility] Partial Thromboplast Timeon 04-13-2024 aPTT Coag (Bld) [Time] 29.4 s Normal 24.1-36.2 [facility] Comment on above: Performed By: #### L 300.3900, L300.4310 ####[facility] [address] [place], [address] Prothrombin Time w/INRon INR Coag (PPP) [Relative time] 1.1 {INR} Normal [facility] Comment on above: Performed By: #### L 300.3900, L300.4310 ####[facility] [address] [place], [address] PT Coag (PPP) [Time] 14.6 s Normal 11.7-14.9 [facility] Comment on above: Performed By: #### L 300.3900, L300.4310 ####[facility] [address] [place], [address] Special Stain Group Ion 04-01 Special Stain Group I Normal [facility] Comment on above: Performed By: #### P SSI ####[facility] [address] [place], [address] CBC W/Diff, Automatedon 04-01 Absolute Lymph 1.44 X10 3/uL Normal 0.83-4.51 [facility] Comment on above: Performed By: #### L 501.2300, L501.9520, L501.5200, L100.0100, L500.4050 ####[facility] [address] [place], [address] Absolute Neut 3.5 X10 3/uL Normal 2.0-7.7 [facility] Comment on above: Performed By: #### L 501.2300, L501.9520, L501.5200, L100.0100, L500.4050 ####[facility] [address] [place], [address] Basophils/100 WBC (Bld) 0.4 % Normal 0-1 [facility] Comment on above: Performed By: #### L 501.2300, L501.9520, L501.5200, L100.0100, L500.4050 ####[facility] [address] [place], [address] Eosinophils/100 WBC (Bld) 1.8 % Normal 0-5 [facility] Comment on above: Performed By: #### L 501.2300, L501.9520, L501.5200, L100.0100, L500.4050 ####[facility] [address] [place], [address] Erythrocyte distribution width (RBC) [Ratio] 13.3 % Normal 11.6-14.6 [facility] Comment on above: Performed By: #### L 501.2300, L501.9520, L501.5200, L100.0100, L500.4050 ####[facility] [address] [place], [address] Hematocrit (Bld) [Volume fraction] 32.7 % Low 40-54 [facility] Comment on above: Performed By: #### L 501.2300, L501.9520, L501.5200, L100.0100, L500.4050 ####[facility] [address] [place], [address] Hemoglobin (Bld) [Mass/Vol] 10.5 g/dL Low 13.0-16.5 [facility] Comment on above: Performed By: #### L 501.2300, L501.9520, L501.5200, L100.0100, L500.4050 ####[facility] [address] [place], [address] IG% 0.500 Normal 0.0-0.9 [facility] Comment on above: Result Comment: IG% - Immature Granulocytes (promyelocytes, myelocytes andmetamyelocytes) > 1% indicates that a LEFT SHIFT is Present. Performed By: #### L 501.2300, L501.9520, L501.5200, L100.0100, L500.4050 ####[facility] [address] [place], [address] Lymphocytes/100 WBC (Bld) 25.3 % Normal 19-41 [facility] Comment on above: Performed By: #### L 501.2300, L501.9520, L501.5200, L100.0100, L500.4050 ####[facility] [address] [place], [address] MCH (RBC) [Entitic mass] 27.5 pg Normal 27.0-32.0 [facility] Comment on above: Performed By: #### L 501.2300, L501.9520, L501.5200, L100.0100, L500.4050 ####[facility] [address] [place], [address] MCHC (RBC) [Mass/Vol] 32.1 g/dL Normal 32-36 [facility] Comment on above: Performed By: #### L 501.2300, L501.9520, L501.5200, L100.0100, L500.4050 ####[facility] [address] [place], [address] MCV (RBC) [Entitic vol] 85.6 fL Normal 80-94 [facility] Comment on above: Performed By: #### L 501.2300, L501.9520, L501.5200, L100.0100, L500.4050 ####[facility] [address] [place], [address] Monocytes/100 WBC (Bld) 10.5 % High 0-10 [facility] Comment on above: Performed By: #### L 501.2300, L501.9520, L501.5200, L100.0100, L500.4050 ####[facility] [address] [place], [address] Neutrophils/100 WBC (Bld) 61.5 % Normal 47-70 [facility] Comment on above: Performed By: #### L 501.2300, L501.9520, L501.5200, L100.0100, L500.4050 ####[facility] [address] [place], [address] Nucleated RBC (Bld) [#/Vol] 0 10*3/uL Normal 0-5 [facility] Comment on above: Performed By: #### L 501.2300, L501.9520, L501.5200, L100.0100, L500.4050 ####[facility] [address] [place], [address] Platelet mean volume (Bld) [Entitic vol] 9.2 fL Normal 6.2-12.0 [facility] Comment on above: Performed By: #### L 501.2300, L501.9520, L501.5200, L100.0100, L500.4050 ####[facility] [address] [place], [address] Platelets (Bld) [#/Vol] 314 10*3/uL Normal 150-450 [facility] Comment on above: Performed By: #### L 501.2300, L501.9520, L501.5200, L100.0100, L500.4050 ####[facility] [address] [place], [address] RBC (Bld) [#/Vol] 3.82 10*6/uL Low 4.6-6.2 [facility] Comment on above: Performed By: #### L 501.2300, L501.9520, L501.5200, L100.0100, L500.4050 ####[facility] [address] [place], [address] RDW SD 41.6 fl Normal 35.1-43.9 [facility] Comment on above: Performed By: #### L 501.2300, L501.9520, L501.5200, L100.0100, L500.4050 ####[facility] [address] [place], [address] WBC (Bld) [#/Vol] 5.7 10*3/uL Normal 4.4-11.0 [facility] Comment on above: Performed By: #### L 501.2300, L501.9520, L501.5200, L100.0100, L500.4050 ####[facility] [address] [place], [address] [facility] 04-12-2024 Albumin [Mass/Vol] 3.8 g/dL Normal 3.2-5.0 [facility] Comment on above: Performed By: #### L 501.2300, L501.9520, L501.5200, L100.0100, L500.4050 ####[facility] [address] [place], [address] Albumin/Globulin [Mass ratio] 1.1 {ratio} Normal 0.9-2.4 [facility] Comment on above: Performed By: #### L 501.2300, L501.9520, L501.5200, L100.0100, L500.4050 ####[facility] [address] [place], [address] ALK P 88 U/L Normal 45-117 [facility] Comment on above: Performed By: #### L 501.2300, L501.9520, L501.5200, L100.0100, L500.4050 ####[facility] [address] [place], [address] ALT [Catalytic activity/Vol] 22 U/L Normal 16-61 [facility] Comment on above: Performed By: #### L 501.2300, L501.9520, L501.5200, L100.0100, L500.4050 ####[facility] [address] [place], [address] AST [Catalytic activity/Vol] 20 U/L Normal 15-37 [facility] Comment on above: Performed By: #### L 501.2300, L501.9520, L501.5200, L100.0100, L500.4050 ####[facility] [address] [place], [address] Bilirubin [Mass/Vol] 0.90 mg/dL Normal 0.20-1.00 [facility] Comment on above: Result Comment: For patients on eltrombopag therapy, use of Dimension Dexter TBIL is not recommended. Performed By: #### L 501.2300, L501.9520, L501.5200, L100.0100, L500.4050 ####[facility] [address] [place], [address] BUN/CRE 13.7 RATIO Normal 10-20 [facility] Comment on above: Performed By: #### L 501.2300, L501.9520, L501.5200, L100.0100, L500.4050 ####[facility] [address] [place], [address] CA,Total 8.9 mg/dL Normal 8.5-10.1 [facility] Comment on above: Performed By: #### L 501.2300, L501.9520, L501.5200, L100.0100, L500.4050 ####[facility] [address] [place], [address] Chloride [Moles/Vol] 104 mmol/L Normal 98-107 [facility] Comment on above: Performed By: #### L 501.2300, L501.9520, L501.5200, L100.0100, L500.4050 ####[facility] [address] [place], [address] CO2 [Moles/Vol] 29.0 mmol/L Normal 21.0-32.0 [facility] Comment on above: Performed By: #### L 501.2300, L501.9520, L501.5200, L100.0100, L500.4050 ####[facility] [address] [place], [address] Creatinine [Mass/Vol] 1.17 mg/dL Normal 0.70-1.30 [facility] Comment on above: Result Comment: The validity of the calculated GFR GFRAA in patients over70 years has not been determined. Clinical correlation isessential. Performed By: #### L 501.2300, L501.9520, L501.5200, L100.0100, L500.4050 ####[facility] [address] [place], [address] ECRCL 48.72 ml/min Normal [facility] Comment on above: Performed By: #### L 501.2300, L501.9520, L501.5200, L100.0100, L500.4050 ####[facility] [address] [place], [address] EST GFR - AA 77 mL/min Normal >60 [facility] Comment on above: Result Comment: Afri can Tristanian GFR Calc Performed By: #### L 501.2300, L501.9520, L501.5200, L100.0100, L500.4050 ####[facility] [address] [place], [address] GAP 4 Low 5-15 [facility] Comment on above: Performed By: #### L 501.2300, L501.9520, L501.5200, L100.0100, L500.4050 ####[facility] [address] [place], [address] GFR/1.73 sq M.predicted among non-blacks MDRD (S/P/Bld) [Vol rate/Area] 64 mL/min/{1.73_m2} Normal >60 [facility] Comment on above: Result Comment: Non- GFR Calc Performed By: #### L 501.2300, L501.9520, L501.5200, L100.0100, L500.4050 ####[facility] [address] [place], [address] Globulin (S) [Mass/Vol] 3.5 g/dL Normal 2.2-4.2 [facility] Comment on above: Performed By: #### L 501.2300, L501.9520, L501.5200, L100.0100, L500.4050 ####[facility] [address] [place], [address] Glucose [Mass/Vol] 98 mg/dL Normal 74-106 [facility] Comment on above: Performed By: #### L 501.2300, L501.9520, L501.5200, L100.0100, L500.4050 ####[facility] [address] [place], [address] Potassium [Moles/Vol] 3.5 mmol/L Normal 3.5-5.1 [facility] Comment on above: Performed By: #### L 501.2300, L501.9520, L501.5200, L100.0100, L500.4050 ####[facility] [address] [place], [address] Sodium [Moles/Vol] 137 mmol/L Normal 136-145 [facility] Comment on above: Performed By: #### L 501.2300, L501.9520, L501.5200, L100.0100, L500.4050 ####[facility] [address] [place], [address] T PROT 7.3 g/dL Normal 6.4-8.2 [facility] Comment on above: Performed By: #### L 501.2300, L501.9520, L501.5200, L100.0100, L500.4050 ####[facility] [address] [place], [address] Urea nitrogen [Mass/Vol] 16 mg/dL Normal 7-18 [facility] Comment on above: Performed By: #### L 501.2300, L501.9520, L501.5200, L100.0100, L500.4050 ####[facility] [address] [place], [address] Consultation - Surgicalon Consultation - Surgical Normal [facility] Ferritinon 04-12-2024 Ferritin [Mass/Vol] 17 ng/mL Low 26-388 [facility] Comment on above: Performed By: #### L 503.6030, L503.6550 ####[facility] [address] [place], [address] Iron+Iron Binding Capacityon 04-12-2024 Iron [Mass/Vol] 16 ug/dL Low 65-175 [facility] Comment on above: Performed By: #### L 503.6030, L503.6550 ####[facility] [address] [place], [address] IRON SATURATION 4.1 Low 15.0-55.0 [facility] Comment on above: Performed By: #### L 503.6030, L503.6550 ####[facility] [address] [place], [address] TIBC 387 ug/dL Normal 250-450 [facility] Comment on above: Performed By: #### L 503.6030, L503.6550 ####[facility] [address] [place], [address] MR/CON.PCM.GIon 04-12-2024 MR/CON.PCM.GI Normal [facility] Magnesiumon 04-12-2024 Magnesium [Mass/Vol] 2.1 mg/dL Normal 1.6-2.6 [facility] Comment on above: Performed By: #### L 501.2300, L501.9520, L501.5200, L100.0100, L500.4050 ####[facility] [address] [place], [address] Partial Thromboplast Timeon 04-12-2024 aPTT Coag (Bld) [Time] 27.7 s Normal 24.1-36.2 [facility] Comment on above: Performed By: #### L 300.4310, L300.3900 ####[facility] [address] [place], [address] Phosphoruson 04-12-2024 Phosphate [Mass/Vol] 3.5 mg/dL Normal 2.5-4.9 [facility] Comment on above: Performed By: #### L 501.2300, L501.9520, L501.5200, L100.0100, L500.4050 ####[facility] [address] [place], [address] Prothrombin Time w/INRon INR Coag (PPP) [Relative time] 1.0 {INR} Normal [facility] Comment on above: Performed By: #### L 300.4310, L300.3900 ####[facility] [address] [place], [address] PT Coag (PPP) [Time] 13.1 s Normal 11.7-14.9 [facility] Comment on above: Performed By: #### L 300.4310, L300.3900 ####[facility] [address] [place], [address] Thyroid Stim Hormone (TSH)on 04-12-2024 TSH 3.360 uIU/mL Normal 0.358-3.740 [facility] Comment on above: Performed By: #### L 501.2300, L501.9520, L501.5200, L100.0100, L500.4050 ####[facility] [address] [place], [address] 12 Lead EKGon 04-11-2024 12 Lead EKG Normal [facility] BNP,B-Type NATRIURETIC PEPTI Иван 04-11-2024 Natriuretic peptide B (Bld) [Mass/Vol] 371.0 pg/mL High 0-100 [facility] Comment on above: Performed By: #### L 501.4020, L500.4050, L300.8000, L503.6620, L100.0100 ####[facility] [address] [place], [address] BRCon 04-11-2024 RC Normal [facility] Comment on above: Result Comment: [id number] OP RC TRANSFUSED 04/12/24 [id number] OP RC TRANSFUSED 04/11/24 2311 Performed By: #### B RC ####[facility] [address] [place], [address] Basic Metabolic Profile (BMP )on 04-11-2024 BUN/CRE 13.8 RATIO Normal 10-20 [facility] Comment on above: Order Comment: 'TROP ' Serial specimen #1, #2 or #3: 1 Performed By: #### L 300.3900, L500.2500, L501.4020, L100.0100, L500.3400, L300.4310, BTS, L501.2450 ####[facility] [address] [place], [address] CA,Total 8.7 mg/dL Normal 8.5-10.1 [facility] Comment on above: Order Comment: 'TROP ' Serial specimen #1, #2 or #3: 1 Performed By: #### L 300.3900, L500.2500, L501.4020, L100.0100, L500.3400, L300.4310, BTS, L501.2450 ####[facility] [address] [place], [address] Chloride [Moles/Vol] 105 mmol/L Normal 98-107 [facility] Comment on above: Order Comment: 'TROP ' Serial specimen #1, #2 or #3: 1 Performed By: #### L 300.3900, L500.2500, L501.4020, L100.0100, L500.3400, L300.4310, BTS, L501.2450 ####[facility] [address] [place], [address] CO2 [Moles/Vol] 26.0 mmol/L Normal 21.0-32.0 [facility] Comment on above: Order Comment: 'TROP ' Serial specimen #1, #2 or #3: 1 Performed By: #### L 300.3900, L500.2500, L501.4020, L100.0100, L500.3400, L300.4310, BTS, L501.2450 ####[facility] [address] [place], [address] Creatinine [Mass/Vol] 1.30 mg/dL Normal 0.70-1.30 [facility] Comment on above: Order Comment: 'TROP ' Serial specimen #1, #2 or #3: 1 Result Comment: The validity of the calculated GFR GFRAA in patients over70 years has not been determined. Clinical correlation isessential. Performed By: #### L 300.3900, L500.2500, L501.4020, L100.0100, L500.3400, L300.4310, BTS, L501.2450 ####[facility] [address] [place], [address] ECRCL 45.94 ml/min Normal [facility] Comment on above: Order Comment: 'TROP ' Serial specimen #1, #2 or #3: 1 Performed By: #### L 300.3900, L500.2500, L501.4020, L100.0100, L500.3400, L300.4310, BTS, L501.2450 ####[facility] [address] [place], [address] EST GFR - AA 68 mL/min Normal >60 [facility] Comment on above: Order Comment: 'TROP ' Serial specimen #1, #2 or #3: 1 Result Comment: Afri can Tristanian GFR Calc Performed By: #### L 300.3900, L500.2500, L501.4020, L100.0100, L500.3400, L300.4310, BTS, L501.2450 ####[facility] [address] [place], [address] GAP 10 Normal 5-15 [facility] Comment on above: Order Comment: 'TROP ' Serial specimen #1, #2 or #3: 1 Performed By: #### L 300.3900, L500.2500, L501.4020, L100.0100, L500.3400, L300.4310, BTS, L501.2450 ####[facility] [address] [place], [address] GFR/1.73 sq M.predicted among non-blacks MDRD (S/P/Bld) [Vol rate/Area] 56 mL/min/{1.73_m2} Low >60 [facility] Comment on above: Order Comment: 'TROP ' Serial specimen #1, #2 or #3: 1 Result Comment: Non- GFR Calc Performed By: #### L 300.3900, L500.2500, L501.4020, L100.0100, L500.3400, L300.4310, BTS, L501.2450 ####[facility] [address] [place], [address] Glucose [Mass/Vol] 123 mg/dL High 74-106 [facility] Comment on above: Order Comment: 'TROP ' Serial specimen #1, #2 or #3: 1 Result Comment: Fast ing Glucose result from 100 to 125 mg/dLsuggests IMPAIRED HOMEOSTASIS per A.D.A. criteria. Performed By: #### L 300.3900, L500.2500, L501.4020, L100.0100, L500.3400, L300.4310, BTS, L501.2450 ####[facility] [address] [place], [address] Potassium [Moles/Vol] 3.7 mmol/L Normal 3.5-5.1 [facility] Comment on above: Order Comment: 'TROP ' Serial specimen #1, #2 or #3: 1 Performed By: #### L 300.3900, L500.2500, L501.4020, L100.0100, L500.3400, L300.4310, BTS, L501.2450 ####[facility] [address] [place], [address] Sodium [Moles/Vol] 141 mmol/L Normal 136-145 [facility] Comment on above: Order Comment: 'TROP ' Serial specimen #1, #2 or #3: 1 Performed By: #### L 300.3900, L500.2500, L501.4020, L100.0100, L500.3400, L300.4310, BTS, L501.2450 ####[facility] [address] [place], [address] Urea nitrogen [Mass/Vol] 18 mg/dL Normal 7-18 [facility] Comment on above: Order Comment: 'TROP ' Serial specimen #1, #2 or #3: 1 Performed By: #### L 300.3900, L500.2500, L501.4020, L100.0100, L500.3400, L300.4310, BTS, L501.2450 ####[facility] [address] [place], [place], [id number] CBC W/Diff, Automatedon 04-01 Absolute Lymph 1.15 X10 3/uL Normal 0.83-4.51 [facility] Comment on above: Performed By: #### L 300.3900, L500.2500, L501.4020, L100.0100, L500.3400, L300.4310, BTS, L501.2450 ####[facility] [address] [place], [place], [phone] Absolute Neut 4.0 X10 3/uL Normal 2.0-7.7 [facility] Comment on above: Performed By: #### L 300.3900, L500.2500, L501.4020, L100.0100, L500.3400, L300.4310, BTS, L501.2450 ####[facility] [address] [place], [place], [phone] Basophils/100 WBC (Bld) 0.5 % Normal 0-1 [facility] Comment on above: Performed By: #### L 300.3900, L500.2500, L501.4020, L100.0100, L500.3400, L300.4310, BTS, L501.2450 ####[facility] [address] [place], [address] Eosinophils/100 WBC (Bld) 1.3 % Normal 0-5 [facility] Comment on above: Performed By: #### L 300.3900, L500.2500, L501.4020, L100.0100, L500.3400, L300.4310, BTS, L501.2450 ####[facility] [address] [place], [address] Erythrocyte distribution width (RBC) [Ratio] 13.2 % Normal 11.6-14.6 [facility] Comment on above: Performed By: #### L 300.3900, L500.2500, L501.4020, L100.0100, L500.3400, L300.4310, BTS, L501.2450 ####[facility] [address] [place], [address] Hematocrit (Bld) [Volume fraction] 21.3 % Low 40-54 [facility] Comment on above: Performed By: #### L 300.3900, L500.2500, L501.4020, L100.0100, L500.3400, L300.4310, BTS, L501.2450 ####[facility] [address] [place], [address] Hemoglobin (Bld) [Mass/Vol] 6.7 g/dL Low 13.0-16.5 [facility] Comment on above: Performed By: #### L 300.3900, L500.2500, L501.4020, L100.0100, L500.3400, L300.4310, BTS, L501.2450 ####[facility] [address] [place], [address] IG% 0.500 Normal 0.0-0.9 [facility] Comment on above: Result Comment: IG% - Immature Granulocytes (promyelocytes, myelocytes andmetamyelocytes) > 1% indicates that a LEFT SHIFT is Present. Performed By: #### L 300.3900, L500.2500, L501.4020, L100.0100, L500.3400, L300.4310, BTS, L501.2450 ####[facility] [address] [place], [address] Lymphocytes/100 WBC (Bld) 19.0 % Normal 19-41 [facility] Comment on above: Performed By: #### L 300.3900, L500.2500, L501.4020, L100.0100, L500.3400, L300.4310, BTS, L501.2450 ####[facility] [address] [place], [address] MCH (RBC) [Entitic mass] 26.7 pg Low 27.0-32.0 [facility] Comment on above: Performed By: #### L 300.3900, L500.2500, L501.4020, L100.0100, L500.3400, L300.4310, BTS, L501.2450 ####[facility] [address] [place], [address] MCHC (RBC) [Mass/Vol] 31.5 g/dL Low 32-36 [facility] Comment on above: Performed By: #### L 300.3900, L500.2500, L501.4020, L100.0100, L500.3400, L300.4310, BTS, L501.2450 ####[facility] [address] [place], [address] MCV (RBC) [Entitic vol] 84.9 fL Normal 80-94 [facility] Comment on above: Performed By: #### L 300.3900, L500.2500, L501.4020, L100.0100, L500.3400, L300.4310, BTS, L501.2450 ####[facility] [address] [place], [address] Monocytes/100 WBC (Bld) 13.1 % High 0-10 [facility] Comment on above: Performed By: #### L 300.3900, L500.2500, L501.4020, L100.0100, L500.3400, L300.4310, BTS, L501.2450 ####[facility] [address] [place], [address] Neutrophils/100 WBC (Bld) 65.6 % Normal 47-70 [facility] Comment on above: Performed By: #### L 300.3900, L500.2500, L501.4020, L100.0100, L500.3400, L300.4310, BTS, L501.2450 ####[facility] [address] [place], [address] Nucleated RBC (Bld) [#/Vol] 0 10*3/uL Normal 0-5 [facility] Comment on above: Performed By: #### L 300.3900, L500.2500, L501.4020, L100.0100, L500.3400, L300.4310, BTS, L501.2450 ####[facility] [address] [place], [address] Platelet mean volume (Bld) [Entitic vol] 9.5 fL Normal 6.2-12.0 [facility] Comment on above: Performed By: #### L 300.3900, L500.2500, L501.4020, L100.0100, L500.3400, L300.4310, BTS, L501.2450 ####[facility] [address] [place], [address] Platelets (Bld) [#/Vol] 304 10*3/uL Normal 150-450 [facility] Comment on above: Performed By: #### L 300.3900, L500.2500, L501.4020, L100.0100, L500.3400, L300.4310, BTS, L501.2450 ####[facility] [address] [place], [address] RBC (Bld) [#/Vol] 2.51 10*6/uL Low 4.6-6.2 [facility] Comment on above: Performed By: #### L 300.3900, L500.2500, L501.4020, L100.0100, L500.3400, L300.4310, BTS, L501.2450 ####[facility] [address] [place], [address] RDW SD 40.7 fl Normal 35.1-43.9 [facility] Comment on above: Performed By: #### L 300.3900, L500.2500, L501.4020, L100.0100, L500.3400, L300.4310, BTS, L501.2450 ####[facility] [address] [place], [address] WBC (Bld) [#/Vol] 6.0 10*3/uL Normal 4.4-11.0 [facility] Comment on above: Performed By: #### L 300.3900, L500.2500, L501.4020, L100.0100, L500.3400, L300.4310, BTS, L501.2450 ####[facility] [address] [place], [address] Absolute Lymph 1.28 X10 3/uL Normal 0.83-4.51 [facility] Comment on above: Performed By: #### L 501.4020, L500.4050, L300.8000, L503.6620, L100.0100 ####[facility] [address] [place], [address] Absolute Neut 3.2 X10 3/uL Normal 2.0-7.7 [facility] Comment on above: Performed By: #### L 501.4020, L500.4050, L300.8000, L503.6620, L100.0100 ####[facility] [address] [place], [address] Basophils/100 WBC (Bld) 0.4 % Normal 0-1 [facility] Comment on above: Performed By: #### L 501.4020, L500.4050, L300.8000, L503.6620, L100.0100 ####[facility] [address] [place], [address] Eosinophils/100 WBC (Bld) 1.9 % Normal 0-5 [facility] Comment on above: Performed By: #### L 501.4020, L500.4050, L300.8000, L503.6620, L100.0100 ####[facility] [address] [place], [address] Erythrocyte distribution width (RBC) [Ratio] 13.4 % Normal 11.6-14.6 [facility] Comment on above: Performed By: #### L 501.4020, L500.4050, L300.8000, L503.6620, L100.0100 ####[facility] [address] [place], [address] Hematocrit (Bld) [Volume fraction] 23.9 % Low 40-54 [facility] Comment on above: Performed By: #### L 501.4020, L500.4050, L300.8000, L503.6620, L100.0100 ####[facility] [address] [place], [address] Hemoglobin (Bld) [Mass/Vol] 7.2 g/dL Low 13.0-16.5 [facility] Comment on above: Performed By: #### L 501.4020, L500.4050, L300.8000, L503.6620, L100.0100 ####[facility] [address] [place], [address] IG% 0.400 Normal 0.0-0.9 [facility] Comment on above: Result Comment: IG% - Immature Granulocytes (promyelocytes, myelocytes andmetamyelocytes) > 1% indicates that a LEFT SHIFT is Present. Performed By: #### L 501.4020, L500.4050, L300.8000, L503.6620, L100.0100 ####[facility] [address] [place], [address] Lymphocytes/100 WBC (Bld) 24.1 % Normal 19-41 [facility] Comment on above: Performed By: #### L 501.4020, L500.4050, L300.8000, L503.6620, L100.0100 ####[facility] [address] [place], [address] MCH (RBC) [Entitic mass] 26.2 pg Low 27.0-32.0 [facility] Comment on above: Performed By: #### L 501.4020, L500.4050, L300.8000, L503.6620, L100.0100 ####[facility] [address] [place], [address] MCHC (RBC) [Mass/Vol] 30.1 g/dL Low 32-36 [facility] Comment on above: Performed By: #### L 501.4020, L500.4050, L300.8000, L503.6620, L100.0100 ####[facility] [address] [place], [address] MCV (RBC) [Entitic vol] 86.9 fL Normal 80-94 [facility] Comment on above: Performed By: #### L 501.4020, L500.4050, L300.8000, L503.6620, L100.0100 ####[facility] [address] [place], [address] Monocytes/100 WBC (Bld) 13.6 % High 0-10 [facility] Comment on above: Performed By: #### L 501.4020, L500.4050, L300.8000, L503.6620, L100.0100 ####[facility] [address] [place], [address] Neutrophils/100 WBC (Bld) 59.6 % Normal 47-70 [facility] Comment on above: Performed By: #### L 501.4020, L500.4050, L300.8000, L503.6620, L100.0100 ####[facility] [address] [place], [address] Nucleated RBC (Bld) [#/Vol] 0 10*3/uL Normal 0-5 [facility] Comment on above: Performed By: #### L 501.4020, L500.4050, L300.8000, L503.6620, L100.0100 ####[facility] [address] [place], [address] Platelet mean volume (Bld) [Entitic vol] 9.8 fL Normal 6.2-12.0 [facility] Comment on above: Performed By: #### L 501.4020, L500.4050, L300.8000, L503.6620, L100.0100 ####[facility] [address] [place], [address] Platelets (Bld) [#/Vol] 321 10*3/uL Normal 150-450 [facility] Comment on above: Performed By: #### L 501.4020, L500.4050, L300.8000, L503.6620, L100.0100 ####[facility] [address] [place], [address] RBC (Bld) [#/Vol] 2.75 10*6/uL Low 4.6-6.2 [facility] Comment on above: Performed By: #### L 501.4020, L500.4050, L300.8000, L503.6620, L100.0100 ####[facility] [address] [place], [address] RDW SD 42.7 fl Normal 35.1-43.9 [facility] Comment on above: Performed By: #### L 501.4020, L500.4050, L300.8000, L503.6620, L100.0100 ####[facility] [address] [place], [address] WBC (Bld) [#/Vol] 5.3 10*3/uL Normal 4.4-11.0 [facility] Comment on above: Performed By: #### L 501.4020, L500.4050, L300.8000, L503.6620, L100.0100 ####[facility] [address] [place], [address] CTA Chst, Abd, Pel W and/or WOon 04-11-2024 CTA Chst, Abd, Pel W and/or WO Normal [facility] Comprehensive Metabolic Prof ilon 04-11-2024 Albumin [Mass/Vol] 3.5 g/dL Normal 3.2-5.0 [facility] Comment on above: Order Comment: 1 Performed By: #### L 501.4020, L500.4050, L300.8000, L503.6620, L100.0100 ####[facility] [address] [place], [address] Albumin/Globulin [Mass ratio] 1.0 {ratio} Normal 0.9-2.4 [facility] Comment on above: Order Comment: 1 Performed By: #### L 501.4020, L500.4050, L300.8000, L503.6620, L100.0100 ####[facility] [address] [place], [address] ALK P 89 U/L Normal 45-117 [facility] Comment on above: Order Comment: 1 Performed By: #### L 501.4020, L500.4050, L300.8000, L503.6620, L100.0100 ####[facility] [address] [place], [address] ALT [Catalytic activity/Vol] 19 U/L Normal 16-61 [facility] Comment on above: Order Comment: 1 Performed By: #### L 501.4020, L500.4050, L300.8000, L503.6620, L100.0100 ####[facility] [address] [place], [address] AST [Catalytic activity/Vol] 19 U/L Normal 15-37 [facility] Comment on above: Order Comment: 1 Performed By: #### L 501.4020, L500.4050, L300.8000, L503.6620, L100.0100 ####[facility] [address] [place], [address] Bilirubin [Mass/Vol] 0.30 mg/dL Normal 0.20-1.00 [facility] Comment on above: Order Comment: 1 Result Comment: For patients on eltrombopag therapy, use of Dimension Dexter TBIL is not recommended. Performed By: #### L 501.4020, L500.4050, L300.8000, L503.6620, L100.0100 ####[facility] [address] [place], [address] BUN/CRE 13.2 RATIO Normal 10-20 [facility] Comment on above: Order Comment: 1 Performed By: #### L 501.4020, L500.4050, L300.8000, L503.6620, L100.0100 ####[facility] [address] [place], [address] CA,Total 9.2 mg/dL Normal 8.5-10.1 [facility] Comment on above: Order Comment: 1 Performed By: #### L 501.4020, L500.4050, L300.8000, L503.6620, L100.0100 ####[facility] [address] [place], [address] Chloride [Moles/Vol] 104 mmol/L Normal 98-107 [facility] Comment on above: Order Comment: 1 Performed By: #### L 501.4020, L500.4050, L300.8000, L503.6620, L100.0100 ####[facility] [address] [place], [address] CO2 [Moles/Vol] 26.0 mmol/L Normal 21.0-32.0 [facility] Comment on above: Order Comment: 1 Performed By: #### L 501.4020, L500.4050, L300.8000, L503.6620, L100.0100 ####[facility] [address] [place], [address] Creatinine [Mass/Vol] 1.14 mg/dL Normal 0.70-1.30 [facility] Comment on above: Order Comment: 1 Result Comment: The validity of the calculated GFR GFRAA in patients over70 years has not been determined. Clinical correlation isessential. Performed By: #### L 501.4020, L500.4050, L300.8000, L503.6620, L100.0100 ####[facility] [address] [place], [address] EST GFR - AA 80 mL/min Normal >60 [facility] Comment on above: Order Comment: 1 Result Comment: Afri can Tristanian GFR Calc Performed By: #### L 501.4020, L500.4050, L300.8000, L503.6620, L100.0100 ####[facility] [address] [place], [address] GAP 6 Normal 5-15 [facility] Comment on above: Order Comment: 1 Performed By: #### L 501.4020, L500.4050, L300.8000, L503.6620, L100.0100 ####[facility] [address] [place], [address] GFR/1.73 sq M.predicted among non-blacks MDRD (S/P/Bld) [Vol rate/Area] 66 mL/min/{1.73_m2} Normal >60 [facility] Comment on above: Order Comment: 1 Result Comment: Non- GFR Calc Performed By: #### L 501.4020, L500.4050, L300.8000, L503.6620, L100.0100 ####[facility] [address] [place], [address] Globulin (S) [Mass/Vol] 3.4 g/dL Normal 2.2-4.2 [facility] Comment on above: Order Comment: 1 Performed By: #### L 501.4020, L500.4050, L300.8000, L503.6620, L100.0100 ####[facility] [address] [place], [address] Glucose [Mass/Vol] 108 mg/dL High 74-106 [facility] Comment on above: Order Comment: 1 Result Comment: Fast ing Glucose result from 100 to 125 mg/dLsuggests IMPAIRED HOMEOSTASIS per A.D.A. criteria. Performed By: #### L 501.4020, L500.4050, L300.8000, L503.6620, L100.0100 ####[facility] [address] [place], [address] Potassium [Moles/Vol] 3.9 mmol/L Normal 3.5-5.1 [facility] Comment on above: Order Comment: 1 Performed By: #### L 501.4020, L500.4050, L300.8000, L503.6620, L100.0100 ####[facility] [address] [place], [address] Sodium [Moles/Vol] 136 mmol/L Normal 136-145 [facility] Comment on above: Order Comment: 1 Performed By: #### L 501.4020, L500.4050, L300.8000, L503.6620, L100.0100 ####[facility] [address] [place], [address] T PROT 6.9 g/dL Normal 6.4-8.2 [facility] Comment on above: Order Comment: 1 Performed By: #### L 501.4020, L500.4050, L300.8000, L503.6620, L100.0100 ####[facility] [address] [place], [address] Urea nitrogen [Mass/Vol] 15 mg/dL Normal 7-18 [facility] Comment on above: Order Comment: 1 Performed By: #### L 501.4020, L500.4050, L300.8000, L503.6620, L100.0100 ####[facility] [address] [place], [address] D-Dimer Quantitative (DVT/PE )on 04-11-2024 D-DIMER QUANT 2.00 FEU/ug/m Invalid Interpretation Code 0.27-0.49 [facility] Comment on above: Result Comment: D-Di gita ELEVATED (>0.49): Additional studies and clinicalassessments are indicated to conclude diagnosis of:Deep Vein Thrombosis (DVT) or Pulmonary Embolism (PE)CRITICAL VALUE CALLED TO MARIELA OLSON04/11/24 Keon Bolanos.RESULTS READ BACK BY SAME. Performed By: #### L 501.4020, L500.4050, L300.8000, L503.6620, L100.0100 ####[facility] [address] [place], [address] Emergency Department Summary on 04-11-2024 Emergency Department Summary Normal [facility] H AND P Exam - Hospitaliston 04-11-2024 H&P Exam - Hospitalist Normal [facility] L501.4020on 04-11-2024 TROPONIN-I HS 124 pg/mL Invalid Interpretation Code 3.0-78.0 [facility] Comment on above: Order Comment: 'TROP ' Serial specimen #1, #2 or #3: 1 Result Comment: Plea se Note: New Test Units and Gender Specific Reference Ranges. For more information see Policy Stat Procedure Dexter High Sensitivity Troponin (TNIH) and attachments. Performed By: #### L 300.3900, L500.2500, L501.4020, L100.0100, L500.3400, L300.4310, BTS, L501.2450 ####[facility] [address] [place], [address] TROPONIN-I HS 123 pg/mL Invalid Interpretation Code 3.0-78.0 [facility] Comment on above: Order Comment: 1 Result Comment: CRIT ICAL VALUE CALLED TO MARIELA OLSON04/11/24 1822 Gudelia H Cici.RESULTS READ BACK BY SAME. Please Note: New Test Units and Gender Specific Reference Ranges. For more information see Policy Stat Procedure Dexter High Sensitivity Troponin (TNIH) and attachments. Performed By: #### L 501.4020, L500.4050, L300.8000, L503.6620, L100.0100 ####[facility] [address] [place], [address] Lipaseon 04-11-2024 Lipase [Catalytic activity/Vol] 29 U/L Normal 13-75 [facility] Comment on above: Order Comment: 'TROP ' Serial specimen #1, #2 or #3: 1 Result Comment: Plea se note:LIPASE revised reference range effective 22.New Lipase methodology. Expected to produce lower valuesthan the previous assay method.NEW Reference Range: 13 - 75 U/L Performed By: #### L 300.3900, L500.2500, L501.4020, L100.0100, L500.3400, L300.4310, BTS, L501.2450 ####[facility] [address] [place], [address] Liver Profileon 04-11-2024 Albumin [Mass/Vol] 3.4 g/dL Normal 3.2-5.0 [facility] Comment on above: Order Comment: 'TROP ' Serial specimen #1, #2 or #3: 1 Performed By: #### L 300.3900, L500.2500, L501.4020, L100.0100, L500.3400, L300.4310, BTS, L501.2450 ####[facility] [address] [place], [address] ALK P 87 U/L Normal 45-117 [facility] Comment on above: Order Comment: 'TROP ' Serial specimen #1, #2 or #3: 1 Performed By: #### L 300.3900, L500.2500, L501.4020, L100.0100, L500.3400, L300.4310, BTS, L501.2450 ####[facility] [address] [place], [address] ALT [Catalytic activity/Vol] 18 U/L Normal 16-61 [facility] Comment on above: Order Comment: 'TROP ' Serial specimen #1, #2 or #3: 1 Performed By: #### L 300.3900, L500.2500, L501.4020, L100.0100, L500.3400, L300.4310, BTS, L501.2450 ####[facility] [address] [place], [address] AST [Catalytic activity/Vol] 15 U/L Normal 15-37 [facility] Comment on above: Order Comment: 'TROP ' Serial specimen #1, #2 or #3: 1 Performed By: #### L 300.3900, L500.2500, L501.4020, L100.0100, L500.3400, L300.4310, BTS, L501.2450 ####[facility] [address] [place], [address] Bilirubin [Mass/Vol] 0.30 mg/dL Normal 0.20-1.00 [facility] Comment on above: Order Comment: 'TROP ' Serial specimen #1, #2 or #3: 1 Result Comment: For patients on eltrombopag therapy, use of Dimension Dexter TBIL is not recommended. Performed By: #### L 300.3900, L500.2500, L501.4020, L100.0100, L500.3400, L300.4310, BTS, L501.2450 ####[facility] [address] [place], [address] Bilirubin.direct [Mass/Vol] 0.09 mg/dL Normal 0.00-0.30 [facility] Comment on above: Order Comment: 'TROP ' Serial specimen #1, #2 or #3: 1 Performed By: #### L 300.3900, L500.2500, L501.4020, L100.0100, L500.3400, L300.4310, BTS, L501.2450 ####[facility] [address] [place], [address] Globulin (S) [Mass/Vol] 3.2 g/dL Normal 2.2-4.2 [facility] Comment on above: Order Comment: 'TROP ' Serial specimen #1, #2 or #3: 1 Performed By: #### L 300.3900, L500.2500, L501.4020, L100.0100, L500.3400, L300.4310, BTS, L501.2450 ####[facility] [address] [place], [address] T PROT 6.6 g/dL Normal 6.4-8.2 [facility] Comment on above: Order Comment: 'TROP ' Serial specimen #1, #2 or #3: 1 Performed By: #### L 300.3900, L500.2500, L501.4020, L100.0100, L500.3400, L300.4310, BTS, L501.2450 ####[facility] [address] [place], [address] Partial Thromboplast Timeon 04-11-2024 aPTT Coag (Bld) [Time] 27.9 s Normal 24.1-36.2 [facility] Comment on above: Performed By: #### L 300.3900, L500.2500, L501.4020, L100.0100, L500.3400, L300.4310, BTS, L501.2450 ####[facility] [address] [place], [address] Prothrombin Time w/INRon INR Coag (PPP) [Relative time] 1.1 {INR} Normal [facility] Comment on above: Performed By: #### L 300.3900, L500.2500, L501.4020, L100.0100, L500.3400, L300.4310, BTS, L501.2450 ####[facility] [address] [place], [address] PT Coag (PPP) [Time] 13.8 s Normal 11.7-14.9 [facility] Comment on above: Performed By: #### L 300.3900, L500.2500, L501.4020, L100.0100, L500.3400, L300.4310, BTS, L501.2450 ####[facility] [address] [place], [address] Type AND Screenon 04-11-2024 Ab SCREEN GEL Negative Normal [facility] Comment on above: Order Comment: A Performed By: #### L 300.3900, L500.2500, L501.4020, L100.0100, L500.3400, L300.4310, BTS, L501.2450 ####[facility] [address] [place], [place], [address] ABO and Rh group Nom (Bld) Blood group O Rh(D) positive Normal [facility] Comment on above: Order Comment: A Performed By: #### L 300.3900, L500.2500, L501.4020, L100.0100, L500.3400, L300.4310, BTS, L501.2450 ####[facility] [address] [place], [place], [address] Absolute lymphocyte countOrd ered By: Stevie Vela on 12-11-2023 Lymphocytes Auto (Unsp spec) [#/Vol] 1.38 10*3/uL 0.83-4.51 [facility] Automated lymphocyte count a s percentage of total leukocytesOrdered By: Stevie Vela on 12-11-2023 Lymphocytes/100 WBC Auto (Unsp spec) 23.2 % 19-41 [facility] Basophil percentageOrdered B y: Stevie Vela on 12-11-2023 Basophils/100 WBC (Bld) 0.5 % 0-1 [facility] Chloride [Moles/Vol] 105 mmol/L 98-107 [facility] Eosinophils/100 WBC (Bld) 2.2 % 0-5 [facility] Glucose [Mass/Vol] 107 mg/dL 74-106 [facility] Comment on above: Fasting Glucose resu lt from 100 to 125 mg/dL suggests IMPAIRED HOMEOSTASIS per A.D.A. criteria. Hemoglobin (Bld) [Mass/Vol] 11.7 g/dL 13.0-16.5 [facility] Monocytes/100 WBC (Bld) 9.4 % 0-10 [facility] Neutrophils (Bld) [#/Vol] 3.8 10*3/uL 2.0-7.7 [facility] Neutrophils/100 WBC (Bld) 64.4 % 47-70 [facility] Potassium [Moles/Vol] 4.1 mmol/L 3.5-5.1 [facility] Sodium [Moles/Vol] 138 mmol/L 136-145 [facility] WBC (Bld) [#/Vol] 5.9 10*3/uL 4.4-11.0 [facility] Determination of erythrocyte mean corpuscular volume (MCV)Ordered By: Stevie Vela on 12-11-2023 MCV (RBC) [Entitic vol] 90.7 fL 80-94 [facility] Erythrocyte distribution wid th ratioOrdered By: Stevie Vela on 12-11-2023 Erythrocyte distribution width (RBC) [Ratio] 12.8 % 11.6-14.6 [facility] Erythrocyte distribution wid th standard deviationOrdered By: Stevie Vela on 12-11-2023 Erythrocyte distribution width (RBC) [Entitic vol] 41.6 fL 35.1-43.9 [facility] Hematocrit Auto (Bld) [Volum e fraction]Ordered By: Stevie Vela on 12-11-2023 Hematocrit (Bld) [Volume fraction] 35.1 % 40-54 [facility] Immature granulocytes/100 WB C Auto (Bld)Ordered By: Stevie Vela on 12-11-2023 Immature granulocytes/100 WBC (Bld) 0.300 % 0.0-0.9 [facility] Comment on above: IG% - Immature Granu locytes (promyelocytes, myelocytes and metamyelocytes) > 1% indicates that a LEFT SHIFT is Present. Laboratory - Chemistry and C hemistry - challengeOrdered By: Stevie Vela on 12-11-2023 CO2 [Moles/Vol] 27.0 mmol/L 21.0-32.0 [facility] Urea nitrogen/Creatinine [Mass ratio] 20.3 mg/mg 10-20 [facility] Laboratory - Hematology and Cell countsOrdered By: Stevie Vela on 12-11-2023 MCH (RBC) [Entitic mass] 30.2 pg 27.0-32.0 [facility] MCHC (RBC) [Mass/Vol] 33.3 g/dL 32-36 [facility] Nucleated RBC/100 WBC (Bld) [Ratio] 0 % 0-5 [facility] Platelet mean volume (Bld) [Entitic vol] 9.8 fL 6.2-12.0 [facility] Platelets (Bld) [#/Vol] 233 10*3/uL 150-450 [facility] No Panel InformationOrdered By: Stevie Vela on 12-11-2023 Estimated Creatinine Clearance Calc 54.39 ml/min [facility] Estimated GFR (MDRD) Amer 76 mL/min >60 [facility] Comment on above: GFR Calc Estimated GFR (MDRD) Non-Af Amer 63 mL/min >60 [facility] Comment on above: Non- GFR Calc Troponin I High Sensitivity 77 pg/mL 3.0-78.0 [facility] Comment on above: Please Note: New Wendy t Units and Gender Specific Reference Ranges. For more information see Policy Stat Procedure Dexter High Sensitivity Troponin (TNIH) and attachments. RBC Auto (Bld) [#/Vol]Ordere d By: Stevie Vela on 12-11-2023 RBC (Bld) [#/Vol] 3.87 10*6/uL 4.6-6.2 [facility] Serum or plasma calcium shagufta urement (mass/volume)Ordered By: Stevie Vela on 12-11-2023 Calcium [Mass/Vol] 8.8 mg/dL 8.5-10.1 [facility] Serum or plasma creatinine m easurement (mass/volume)Ordered By: Stevie Vela on 12-11-2023 Creatinine [Mass/Vol] 1.18 mg/dL 0.70-1.30 [facility] Comment on above: The validity of the calculated GFR & GFRAA in patients over 70 years has not been determined. Clinical correlation is essential. Serum or plasma urea nitroge n measurement (mass/volume)Ordered By: Stevie Vela on 12-11-2023 Urea nitrogen [Mass/Vol] 24 mg/dL 7-18 [facility] Thin prep Papanicolaou smear with manual screeningOrdered By: Stevie Vela on 12-11-2023 Thin prep Papanicolaou smear with manual screening 6 5-15 [facility] Basophil percentageOrdered B y: Neville Islas on 08-22-2023 Testosterone [Mass/Vol] 374 ng/dL 264-916 [facility] Comment on above: Adult male reference interval is based on a population ofhealthy nonobese males (BMI <30) between 19 and 39 yearsold. Julian et.al. JCEM 2017,102;5598-4539. PMID:[id number]. Free testosterone percentage Ordered By: Neville Islas on 08-22-2023 Testosterone Free/Testosterone.tota l [Mass fraction] 1.85 % 1.50-4.20 [facility] Laboratory - Chemistry and C hemistry - challengeOrdered By: Neville Islas on 08-22-2023 Prolactin IA Qn 11.4 ng/mL [facility] Comment on above: NORMAL REFERENCE RAN GES FEMALE NON- 2.2 - 30.3 ng/mL 8.1 - 347.6 ng/mL POST-MENOPAUSAL 0.7 - 31.5 ng/mL MALE 2.5 - 17.4 ng/mL Transferrin [Mass/Vol] 250 mg/dL 177-329 [facility] Comment on above: Performed at: [address] [id number] Director: Jian Paredes PhD, Phone: [phone] at: [facility] [address] [id number] Director: Tejal Dumas MD, Phone: [phone] Serum or plasma testosterone free measurement (mass/volume)Ordered By: Neville Islas on 08-22-2023 Testosterone Free [Mass/Vol] 6.92 ng/dL 5.00-21.00 [facility] Serum or plasma thyroid stim ulating hormone (TSH) measurement (units/volume)Ordered By: Neville Islas on 08-22-2023 TSH Qn 4.59 uIU/mL 0.358-3.74 [facility] Absolute lymphocyte countOrd ered By: Darrel Sanders on 08-16-2023 Lymphocytes Auto (Unsp spec) [#/Vol] 2.04 10*3/uL 0.83-4.51 [facility] Basophil percentageOrdered B y: Darrel Sanders on 08-16-2023 Basophil percentage 3.1 mg/dL 2.5-4.9 [facility] Basophils/100 WBC (Bld) 0.3 % 0-1 [facility] Bilirubin [Mass/Vol] 0.80 mg/dL 0.20-1.00 [facility] Comment on above: For patients on eltr ombopag therapy, use of Dimension Dexter TBIL is not recommended. Chloride [Moles/Vol] 105 mmol/L 98-107 [facility] Cholesterol [Mass/Vol] 203 mg/dL <200 [facility] Comment on above: <200 mg/dL Desirable 200-240 mg/dL Borderline >240 mg/dL High Risk Eosinophils/100 WBC (Bld) 1.9 % 0-5 [facility] Glucose [Mass/Vol] 91 mg/dL 74-106 [facility] Neutrophils (Bld) [#/Vol] 3.5 10*3/uL 2.0-7.7 [facility] Neutrophils/100 WBC (Bld) 56.6 % 47-70 [facility] Potassium [Moles/Vol] 3.7 mmol/L 3.5-5.1 [facility] Protein [Mass/Vol] 7.3 g/dL 6.4-8.2 [facility] Sodium [Moles/Vol] 137 mmol/L 136-145 [facility] Triglyceride [Mass/Vol] 105 mg/dL <199 [facility] Comment on above: The drugs N-Acetylcy steine and Metamizole may falsely depress this assay.Serum Triglycerides Reference Interval Normal <150 mg/dL Borderline high 150 - 199 mg/dL High 200 - 499 mg/dL Very High > or = 500 mg/dL WBC (Bld) [#/Vol] 6.2 10*3/uL 4.4-11.0 [facility] Blood erythrocytes count (nu mber/volume)Ordered By: Darrel Sanders on 08-16-2023 RBC (Bld) [#/Vol] 4.25 10*6/uL 4.6-6.2 [facility] Blood hemoglobin measurement (mass/volume)Ordered By: Darrel Sanders on 08-16-2023 Hemoglobin (Bld) [Mass/Vol] 12.7 g/dL 13.0-16.5 [facility] Blood lymphocytes/100 leukoc ytesOrdered By: Darrel Sanders on 08-16-2023 Lymphocytes/100 WBC (Bld) 32.7 % 19-41 [facility] Blood monocytes/100 leukocyt esOrdered By: Darrel Sanders on 08-16-2023 Monocytes/100 WBC (Bld) 8.3 % 0-10 [facility] Blood platelet mean volumeOr dered By: Darrel Sanders on 08-16-2023 Platelet mean volume (Bld) [Entitic vol] 9.9 fL 6.2-12.0 [facility] Determination of erythrocyte mean corpuscular volume (MCV)Ordered By: Darrel Sanders on 08-16-2023 MCV (RBC) [Entitic vol] 89.2 fL 80-94 [facility] Hematocrit Auto (Bld) [Volum e fraction]Ordered By: Darrel Sanders on 08-16-2023 Hematocrit (Bld) [Volume fraction] 37.9 % 40-54 [facility] Laboratory - Chemistry and C hemistry - challengeOrdered By: Darrel Sanders on 08-16-2023 ALP [Catalytic activity/Vol] 87 U/L 45-117 [facility] ALT [Catalytic activity/Vol] 28 U/L 16-61 [facility] CO2 [Moles/Vol] 26.0 mmol/L 21.0-32.0 [facility] Globulin (S) [Mass/Vol] 3.5 g/dL 2.2-4.2 [facility] Magnesium [Mass/Vol] 2.2 mg/dL 1.6-2.6 [facility] Urea nitrogen/Creatinine [Mass ratio] 18.6 mg/mg 10-20 [facility] Laboratory - Hematology and Cell countsOrdered By: Darrel Sanders on 08-16-2023 Erythrocyte distribution width (RBC) [Entitic vol] 43.4 fL 35.1-43.9 [facility] Erythrocyte distribution width (RBC) [Ratio] 13.3 % 11.6-14.6 [facility] Immature granulocytes/100 WBC (Bld) 0.200 % 0.0-0.9 [facility] Comment on above: IG% - Immature Granu locytes (promyelocytes, myelocytes and metamyelocytes) > 1% indicates that a LEFT SHIFT is Present. MCH (RBC) [Entitic mass] 29.9 pg 27.0-32.0 [facility] Nucleated RBC/100 WBC (Bld) [Ratio] 0 % 0-5 [facility] [Mass/Vol]Or dered By: Darrel Sanders on 08-16-2023 MCHC (RBC) [Mass/Vol] 33.5 g/dL 32-36 [facility] No Panel InformationOrdered By: Darrel Sanders on 08-16-2023 Estimated Creatinine Clearance Calc 58.72 ml/min [facility] Estimated GFR (MDRD) Amer 91 mL/min >60 [facility] Comment on above: GFR Calc Estimated GFR (MDRD) Non-Af Amer 75 mL/min >60 [facility] Comment on above: Non- GFR Calc D-Dimer Quantitative (PE/DVT) 0.79 FEU/ug/m 0.27-0.49 [facility] Comment on above: D-Dimer ELEVATED (>0 .49): Additional studies and clinicalassessments are indicated to conclude diagnosis of:Deep Vein Thrombosis (DVT) or Pulmonary Embolism (PE)CRITICAL VALUE VERIFIED. CALLED TO [id number]/16/24 0113 Quintin Cardenas.RESULTS READ BACK BY SAME. Troponin I High Sensitivity 96 pg/mL 3.0-78.0 [facility] Comment on above: Please Note: New Wendy t Units and Gender Specific Reference Ranges. For more information see Policy Stat Procedure Dexter High Sensitivity Troponin (TNIH) and attachments. Platelets bldOrdered By: Esdras Sanders on 08-16-2023 Platelets (Bld) [#/Vol] 250 10*3/uL 150-450 [facility] Serum or plasma albumin shagufta urement (mass/volume)Ordered By: Darrel Sanders on 08-16-2023 Albumin [Mass/Vol] 3.8 g/dL 3.2-5.0 [facility] Serum or plasma albumin/glob ulin mass ratioOrdered By: Darrel Sanders on 08-16-2023 Albumin/Globulin [Mass ratio] 1.1 {ratio} 0.9-2.4 [facility] Serum or plasma calcium shagufta urement (mass/volume)Ordered By: Darrel Sanders on 08-16-2023 Calcium [Mass/Vol] 9.4 mg/dL 8.5-10.1 [facility] Serum or plasma cholesterol in HDL measurement (mass/volume)Ordered By: Darrel Sanders on 08-16-2023 Cholesterol in HDL [Mass/Vol] 59 mg/dL >40 [facility] Comment on above: The drugs N-Acetylcy steine and Metamizole may falsely depress this assay. Reference Range HDL <40 mg/dL Low HDL Cholesterol HDL >or= 60 mg/dL High HDL Cholesterol Serum or plasma cholesterol in VLDL measurement (mass/volume)Ordered By: Darrel Sanders on 08-16-2023 Cholesterol in VLDL [Mass/Vol] 21 mg/dL 5-40 [facility] Serum or plasma creatinine m easurement (mass/volume)Ordered By: Darrel Sanders on 08-16-2023 Creatinine [Mass/Vol] 1.02 mg/dL 0.70-1.30 [facility] Comment on above: The validity of the calculated GFR & GFRAA in patients over 70 years has not been determined. Clinical correlation is essential. Serum or plasma low density lipoprotein (LDL) cholesterol measurement (mass/volume)Ordered By: Darrel Sanders on 08-16-2023 Cholesterol in LDL [Mass/Vol] 123 mg/dL 0-130 [facility] Serum or plasma thyroid stim ulating hormone (TSH) measurement (units/volume)Ordered By: Lucy Polanco on 08-16-2023 TSH Qn 4.27 uIU/mL 0.358-3.74 [facility] Serum or plasma urea nitroge n measurement (mass/volume)Ordered By: Darrel Sanders on 08-16-2023 Urea nitrogen [Mass/Vol] 19 mg/dL 7-18 [facility] Thin prep Papanicolaou smear with manual screeningOrdered By: Darrel Sanders on 08-16-2023 Thin prep Papanicolaou smear with manual screening 25 U/L 15-37 [facility] Thin prep Papanicolaou smear with manual screening 6 5-15 [facility] Thin prep Papanicolaou smear with manual screeningOrdered By: Lucy Polanco on 08-16-2023 Thin prep Papanicolaou smear with manual screening 0.97 ng/dL 0.76-1.46 [facility] Absolute lymphocyte countOrd ered By: Faustina Canoier on 08-15-2023 Lymphocytes Auto (Unsp spec) [#/Vol] 1.56 10*3/uL 0.83-4.51 [facility] Basophil percentageOrdered B y: Faustina Meli on 08-15-2023 Basophil percentage 0 SEEN /hpf 0-5 [facility] Basophils/100 WBC (Bld) 0.5 % 0-1 [facility] Bilirubin [Mass/Vol] 0.60 mg/dL 0.20-1.00 [facility] Comment on above: For patients on eltr ombopag therapy, use of Dimension Dexter TBIL is not recommended. Chloride [Moles/Vol] 100 mmol/L 98-107 [facility] Eosinophils/100 WBC (Bld) 2.9 % 0-5 [facility] Glucose [Mass/Vol] 99 mg/dL 74-106 [facility] Neutrophils (Bld) [#/Vol] 3.9 10*3/uL 2.0-7.7 [facility] Neutrophils/100 WBC (Bld) 62.4 % 47-70 [facility] Potassium [Moles/Vol] 4.7 mmol/L 3.5-5.1 [facility] Comment on above: Slight Hemolysis, Re sult may be falsely increased. Protein [Mass/Vol] 7.6 g/dL 6.4-8.2 [facility] Sodium [Moles/Vol] 136 mmol/L 136-145 [facility] WBC (Bld) [#/Vol] 6.2 10*3/uL 4.4-11.0 [facility] Bilirubin Test strip Ql (U)O rdered By: Faustinadhruv Garrison on 08-15-2023 Bilirubin Ql (U) Negative Negative [facility] Blood erythrocytes count (nu mber/volume)Ordered By: Faustina Garrison on 08-15-2023 RBC (Bld) [#/Vol] 4.26 10*6/uL 4.6-6.2 [facility] Blood hemoglobin measurement (mass/volume)Ordered By: Faustina Garrison on 08-15-2023 Hemoglobin (Bld) [Mass/Vol] 13.2 g/dL 13.0-16.5 [facility] Blood lymphocytes/100 leukoc ytesOrdered By: Faustina Garrison on 08-15-2023 Lymphocytes/100 WBC (Bld) 25.1 % 19-41 [facility] Blood monocytes/100 leukocyt esOrdered By: Faustina Garrison on 08-15-2023 Monocytes/100 WBC (Bld) 8.8 % 0-10 [facility] Blood platelet mean volumeOr dered By: Faustina Garrison on 08-15-2023 Platelet mean volume (Bld) [Entitic vol] 9.9 fL 6.2-12.0 [facility] Determination of erythrocyte mean corpuscular volume (MCV)Ordered By: Faustina Garrison on 08-15-2023 MCV (RBC) [Entitic vol] 90.6 fL 80-94 [facility] Hematocrit Auto (Bld) [Volum e fraction]Ordered By: Faustina Garrison on 08-15-2023 Hematocrit (Bld) [Volume fraction] 38.6 % 40-54 [facility] Ketones Test strip Ql (U)Ord ered By: Faustina Garrison on 08-15-2023 Ketones Ql (U) Negative Negative [facility] Laboratory - Chemistry and C hemistry - challengeOrdered By: Faustina Garrison on 08-15-2023 ALP [Catalytic activity/Vol] 97 U/L 45-117 [facility] ALT [Catalytic activity/Vol] 31 U/L 16-61 [facility] CO2 [Moles/Vol] 28.0 mmol/L 21.0-32.0 [facility] Globulin (S) [Mass/Vol] 3.7 g/dL 2.2-4.2 [facility] Magnesium [Mass/Vol] 2.0 mg/dL 1.6-2.6 [facility] Comment on above: Slight Hemolysis, Re sult may be falsely increased. Urea nitrogen/Creatinine [Mass ratio] 18.0 mg/mg 10-20 [facility] Laboratory - Hematology and Cell countsOrdered By: Faustina Garrison on 08-15-2023 Erythrocyte distribution width (RBC) [Entitic vol] 43.6 fL 35.1-43.9 [facility] Erythrocyte distribution width (RBC) [Ratio] 13.2 % 11.6-14.6 [facility] Immature granulocytes/100 WBC (Bld) 0.300 % 0.0-0.9 [facility] Comment on above: IG% - Immature Granu locytes (promyelocytes, myelocytes and metamyelocytes) > 1% indicates that a LEFT SHIFT is Present. MCH (RBC) [Entitic mass] 31.0 pg 27.0-32.0 [facility] Nucleated RBC/100 WBC (Bld) [Ratio] 0 % 0-5 [facility] MCHC Auto (RBC) [Mass/Vol]Or dered By: Faustina Garrison on 08-15-2023 MCHC (RBC) [Mass/Vol] 34.2 g/dL 32-36 [facility] Mucus LM Ql (Urine sed)Order ed By: Faustina Garrison on 08-15-2023 Mucus Ql (Urine sed) 0 SEEN /hpf [facility] Nitrite Test strip Ql (U)Ord ered By: Faustina Garrison on 08-15-2023 Nitrite Ql (U) Negative Negative [facility] No Panel InformationOrdered By: Faustina Garrison on 08-15-2023 Troponin I High Sensitivity 85 pg/mL 3.0-78.0 [facility] Comment on above: Please Note: New Wendy t Units and Gender Specific Reference Ranges. For more information see Policy Stat Procedure Dexter High Sensitivity Troponin (TNIH) and attachments. Estimated Creatinine Clearance Calc 52.21 ml/min [facility] Estimated GFR (MDRD) Amer 82 mL/min >60 [facility] Comment on above: GFR Calc Estimated GFR (MDRD) Non-Af Amer 68 mL/min >60 [facility] Comment on above: Non- GFR Calc Platelets bldOrdered By: Natali Garrison on 08-15-2023 Platelets (Bld) [#/Vol] 242 10*3/uL 150-450 [facility] Protein Test strip Ql (U)Ord ered By: Faustina Garrison on 08-15-2023 Protein Ql (U) Negative Negative [facility] Serum or plasma albumin shagufta urement (mass/volume)Ordered By: Faustina Garrison on 08-15-2023 Albumin [Mass/Vol] 3.9 g/dL 3.2-5.0 [facility] Serum or plasma albumin/glob ulin mass ratioOrdered By: Faustina Garrison on 08-15-2023 Albumin/Globulin [Mass ratio] 1.1 {ratio} 0.9-2.4 [facility] Serum or plasma calcium shagufta urement (mass/volume)Ordered By: Faustina Garrison on 08-15-2023 Calcium [Mass/Vol] 9.3 mg/dL 8.5-10.1 [facility] Serum or plasma creatinine m easurement (mass/volume)Ordered By: Faustina Garrison on 08-15-2023 Creatinine [Mass/Vol] 1.11 mg/dL 0.70-1.30 [facility] Comment on above: The validity of the calculated GFR & GFRAA in patients over 70 years has not been determined. Clinical correlation is essential. Serum or plasma urea nitroge n measurement (mass/volume)Ordered By: Faustina Garrison on 08-15-2023 Urea nitrogen [Mass/Vol] 20 mg/dL 7-18 [facility] Squamous epithelial cells de tection in urine sediment by light microscopyOrdered By: Faustina Garrison on 08-15-2023 Epithelial cells.squamous LM Ql (Urine sed) 0-5 SEEN /hpf 0-5 [facility] Thin prep Papanicolaou smear with manual screeningOrdered By: Faustina Garrison on 08-15-2023 Thin prep Papanicolaou smear with manual screening 29 U/L 15-37 [facility] Comment on above: Slight Hemolysis, Re sult may be falsely increased. Thin prep Papanicolaou smear with manual screening 8 5-15 [facility] Urine blood detectionOrdered By: Faustina Garrison on 08-15-2023 RBC Ql (U) Negative Negative [facility] RBC Ql (U) 0 SEEN /hpf 0-5 [facility] Urine clarityOrdered By: Natali Garrison on 08-15-2023 Clarity (U) Sl. Cloudy Clear [facility] Urine color determinationOrd ered By: Faustina Garrison on 08-15-2023 Color (U) Yellow Yellow [facility] Urine glucose detectionOrder ed By: Faustina Garrison on 08-15-2023 Glucose Ql (U) Normal mg/dl Normal [facility] Urine leukocyte esterase det ection by dipstickOrdered By: Faustina Garrison on 08-15-2023 Leukocyte esterase Test strip Ql (U) Negative Negative [facility] Urine pHOrdered By: Faustina bartlett on 08-15-2023 pH (U) 8.0 [pH] 5.0 - 8.0 [facility] Urine sediment bacteria coun t by microscopy (number/high power field)Ordered By: Faustina Garrison on 08-15-2023 Bacteria LM.HPF (Urine sed) [#/Area] 0 /[HPF] None Seen [facility] Urine specific gravity measu rementOrdered By: Faustina Garrison on 08-15-2023 Specific gravity (U) [Rel density] 1.010 1.002-1.030 [facility] Urobilinogen Auto test strip Ql (U)Ordered By: Faustina Garrison on 08-15-2023 Urobilinogen Ql (U) Normal mg/dl Normal [facility] Absolute lymphocyte countOrd ered By: Mariela Olson on 01-25-2023 Lymphocytes Auto (Unsp spec) [#/Vol] 2.09 10*3/uL 0.83-4.51 [facility] Basophil percentageOrdered B y: Mariela Olson on 01-25-2023 Basophils/100 WBC (Bld) 0.6 % 0-1 [facility] Chloride [Moles/Vol] 106 mmol/L 98-107 [facility] Eosinophils/100 WBC (Bld) 6.0 % 0-5 [facility] Glucose [Mass/Vol] 98 mg/dL 74-106 [facility] Neutrophils (Bld) [#/Vol] 3.6 10*3/uL 2.0-7.7 [facility] Neutrophils/100 WBC (Bld) 52.4 % 47-70 [facility] Potassium [Moles/Vol] 4.2 mmol/L 3.5-5.1 [facility] Sodium [Moles/Vol] 138 mmol/L 136-145 [facility] WBC (Bld) [#/Vol] 6.9 10*3/uL 4.4-11.0 [facility] Blood erythrocytes count (nu mber/volume)Ordered By: Marielabruce Olson on 01-25-2023 RBC (Bld) [#/Vol] 4.64 10*6/uL 4.6-6.2 [facility] Blood hemoglobin measurement (mass/volume)Ordered By: Marielabruce Olson on 01-25-2023 Hemoglobin (Bld) [Mass/Vol] 14.2 g/dL 13.0-16.5 [facility] Blood lymphocytes/100 leukoc ytesOrdered By: Marielabruce Olson on 01-25-2023 Lymphocytes/100 WBC (Bld) 30.4 % 19-41 [facility] Blood monocytes/100 leukocyt esOrdered By: Sigel Shahram on 01-25-2023 Monocytes/100 WBC (Bld) 10.3 % 0-10 [facility] Blood platelet mean volumeOr dered By: Sigel Shahram on 01-25-2023 Platelet mean volume (Bld) [Entitic vol] 10.0 fL 6.2-12.0 [facility] Determination of erythrocyte mean corpuscular volume (MCV)Ordered By: Marielabruce Olson on 01-25-2023 MCV (RBC) [Entitic vol] 92.7 fL 80-94 [facility] Hematocrit Auto (Bld) [Volum e fraction]Ordered By: Sigel Shahram on 01-25-2023 Hematocrit (Bld) [Volume fraction] 43.0 % 40-54 [facility] Laboratory - Chemistry and C hemistry - challengeOrdered By: Sigel Shahram on 01-25-2023 CO2 [Moles/Vol] 28.0 mmol/L 21.0-32.0 [facility] Magnesium [Mass/Vol] 2.3 mg/dL 1.6-2.6 [facility] Urea nitrogen/Creatinine [Mass ratio] 17.7 mg/mg 10-20 [facility] - Hematology and Cell countsOrdered By: Sigel Shahram on 01-25-2023 Erythrocyte distribution width (RBC) [Entitic vol] 43.2 fL 35.1-43.9 [facility] Erythrocyte distribution width (RBC) [Ratio] 12.7 % 11.6-14.6 [facility] Immature granulocytes/100 WBC (Bld) 0.300 % 0.0-0.9 [facility] Comment on above: IG% - Immature Granu locytes (promyelocytes, myelocytes and metamyelocytes) > 1% indicates that a LEFT SHIFT is Present. MCH (RBC) [Entitic mass] 30.6 pg 27.0-32.0 [facility] Nucleated RBC/100 WBC (Bld) [Ratio] 0 % 0-5 [facility] MCHC Auto (RBC) [Mass/Vol]Or dered By: Mariela Olson on 01-25-2023 MCHC (RBC) [Mass/Vol] 33.0 g/dL 32-36 [facility] No Panel InformationOrdered By: Mariela Olson on 01-25-2023 Estimated GFR (MDRD) Amer 72 mL/min >60 [facility] Comment on above: GFR Calc Estimated GFR (MDRD) Non-Af Amer 60 mL/min >60 [facility] Comment on above: Non- GFR Calc Platelets bldOrdered By: Hortencia Olson on 01-25-2023 Platelets (Bld) [#/Vol] 242 10*3/uL 150-450 [facility] Serum or plasma calcium shagufta urement (mass/volume)Ordered By: Mariela Olson on 01-25-2023 Calcium [Mass/Vol] 9.3 mg/dL 8.5-10.1 [facility] Serum or plasma creatinine m easurement (mass/volume)Ordered By: Mariela Olson on 01-25-2023 Creatinine [Mass/Vol] 1.24 mg/dL 0.70-1.30 [facility] Comment on above: The validity of the calculated GFR & GFRAA in patients over 70 years has not been determined. Clinical correlation is essential. Serum or plasma urea nitroge n measurement (mass/volume)Ordered By: Mariela Olson on 01-25-2023 Urea nitrogen [Mass/Vol] 22 mg/dL 7-18 [facility] Thin prep Papanicolaou smear with manual screeningOrdered By: Mariela Olson on 01-25-2023 Thin prep Papanicolaou smear with manual screening 4 5-15 [facility] Vital Signs Date Time Vital Sign Value Performing Clinician Facility 02-21-2025 14:20-0400 Body temperature 97 [degF] Mariela Shahram [employer] Work Phone: [facility] 02-21-2025 14:20-0400 Diastolic blood pressure 72 mm[Hg] Mariela Shahram [employer] Work Phone: [facility] 02-21-2025 14:20-0400 Heart rate 68 /min Mariela Shahram [employer] Work Phone: [facility] 02-21-2025 14:20-0400 Respiratory rate 16 /min Mariela Shahram [employer] Work Phone: [facility] 02-21-2025 14:20-0400 SaO2% (BldA) [Mass fraction] 100 % Mariela Shahram [employer] Work Phone: [facility] 02-21-2025 14:20-0400 Systolic blood pressure 163 mm[Hg] Mariela Shahram [employer] Work Phone: [facility] 02-21-2025 12:52-0400 Body height 170.18 cm Mariela Shahram [employer] Work Phone: [facility] 02-21-2025 12:52-0400 Body mass index (BMI) [Ratio] 25.5 kg/m2 Mariela Shahram [employer] Work Phone: [facility] 02-21-2025 12:52-0400 Body weight 74 kg Mariela Shahram [employer] Work Phone: [facility] 02-19-2025 14:49-0400 Body height 170.18 cm Mariela Shahram [employer] Work Phone: [facility] 02-19-2025 14:49-0400 Body mass index (BMI) [Ratio] 22.7 kg/m2 Mariela Shahram [employer] Work Phone: [facility] 02-19-2025 14:49-0400 Body temperature 97 [degF] Mariela Shahram [employer] Work Phone: [facility] 02-19-2025 14:49-0400 Body weight 65.77 kg Mariela Shahram [employer] Work Phone: [facility] 02-19-2025 14:49-0400 Diastolic blood pressure 67 mm[Hg] Mariela Shahram [employer] Work Phone: [facility] 02-19-2025 14:49-0400 Heart rate 62 /min Mariela Shahram [employer] Work Phone: [facility] 02-19-2025 14:49-0400 Respiratory rate 17 /min Mariela Shahram [employer] Work Phone: [facility] 02-19-2025 14:49-0400 SaO2% (BldA) [Mass fraction] 97 % Mariela Shahram [employer] Work Phone: [facility] 02-19-2025 14:49-0400 Systolic blood pressure 167 mm[Hg] Mariela Shahram [employer] Work Phone: [facility] 02-14-2025 09:30-0400 Diastolic blood pressure 71 mm[Hg] Mariela Shahram [employer] Work Phone: [facility] 02-14-2025 09:30-0400 Heart rate 63 /min Mairela Shahram [employer] Work Phone: [facility] 02-14-2025 09:30-0400 Respiratory rate 16 /min Mariela Shahram [employer] Work Phone: [facility] 02-14-2025 09:30-0400 Systolic blood pressure 179 mm[Hg] Mariela Shahram [employer] Work Phone: [facility] 02-14-2025 09:09-0400 Body temperature 97.5 [degF] Mariela Shahram [employer] Work Phone: [facility] 02-12-2025 03:00-0400 Body temperature 98.2 [degF] Mariela Shahram [employer] Work Phone: [facility] 02-12-2025 03:00-0400 Diastolic blood pressure 68 mm[Hg] Mariela Shahram [employer] Work Phone: [facility] 02-12-2025 03:00-0400 Heart rate 76 /min Mariela Shahram [employer] Work Phone: [facility] 02-12-2025 03:00-0400 Respiratory rate 16 /min Mariela Shahram [employer] Work Phone: [facility] 02-12-2025 03:00-0400 SaO2% (BldA) [Mass fraction] 95 % Mariela Shahram [employer] Work Phone: [facility] 02-12-2025 03:00-0400 Systolic blood pressure 170 mm[Hg] Mariela Shahram [employer] Work Phone: [facility] 02-11-2025 09:28-0400 Body height 170.18 cm Mariela Shahram [employer] Work Phone: [facility] 02-11-2025 09:28-0400 Body weight 71.7 kg Mariela Shahram [employer] Work Phone: [facility] 02-11-2025 02:55-0400 Diastolic blood pressure 71 mm[Hg] Mariela Shahram [employer] Work Phone: [facility] 02-11-2025 02:55-0400 Heart rate 73 /min Mariela Shahram [employer] Work Phone: [facility] 02-11-2025 02:55-0400 Respiratory rate 14 /min Mariela Shahram [employer] Work Phone: [facility] 02-11-2025 02:55-0400 SaO2% (BldA) [Mass fraction] 98 % Mariela Shahram [employer] Work Phone: [facility] 02-11-2025 02:55-0400 Systolic blood pressure 178 mm[Hg] Mariela Shahram [employer] Work Phone: [facility] 02-11-2025 02:27-0400 Body temperature 98 [degF] Mariela Shahram [employer] Work Phone: [facility] 02-10-2025 21:34-0400 Body height 170.18 cm Mariela Shahram [employer] Work Phone: [facility] 02-10-2025 21:34-0400 Body mass index (BMI) [Ratio] 24.9 kg/m2 Mariela Shahram [employer] Work Phone: [facility] 02-10-2025 21:34-0400 Body weight 72.12 kg Mariela Shahram [employer] Work Phone: [facility] 01-14-2025 09:01-0400 Body height 170.18 cm Mariela Shahram [employer] Work Phone: [facility] 01-14-2025 09:01-0400 Body mass index (BMI) [Ratio] 23.5 kg/m2 Mariela Shahram [employer] Work Phone: [facility] 01-14-2025 09:01-0400 Body weight 68.03 kg Mariela Shahram [employer] Work Phone: [facility] 01-09-2025 15:28-0400 Body height 170.18 cm Mariela Shahram [employer] Work Phone: [facility] 01-09-2025 15:28-0400 Body mass index (BMI) [Ratio] 24.1 kg/m2 Mariela Shahram [employer] Work Phone: [facility] 01-09-2025 15:28-0400 Body temperature 98.4 [degF] Mariela Shahram [employer] Work Phone: [facility] 01-09-2025 15:28-0400 Body weight 69.9 kg Mariela Shahram [employer] Work Phone: [facility] 01-09-2025 15:28-0400 Diastolic blood pressure 74 mm[Hg] Mariela Shahram [employer] Work Phone: [facility] 01-09-2025 15:28-0400 Heart rate 62 /min Mariela Shahram [employer] Work Phone: [facility] 01-09-2025 15:28-0400 SaO2% (BldA) [Mass fraction] 97 % Mariela Shahram [employer] Work Phone: [facility] 01-09-2025 15:28-0400 Systolic blood pressure 146 mm[Hg] Mariela Shahram [employer] Work Phone: [facility] 12-05-2024 14:06-0400 Diastolic blood pressure 87 mm[Hg] Mariela Shahram [employer] Work Phone: [facility] 12-05-2024 14:06-0400 Heart rate 62 /min Mariela Shahram [employer] Work Phone: [facility] 12-05-2024 14:06-0400 Respiratory rate 14 /min Mariela Shahram [employer] Work Phone: [facility] 12-05-2024 14:06-0400 SaO2% (BldA) [Mass fraction] 96 % Mariela Shahram [employer] Work Phone: [facility] 12-05-2024 14:06-0400 Systolic blood pressure 120 mm[Hg] Mariela Shahram [employer] Work Phone: [facility] 12-05-2024 08:22-0400 Body height 171.45 cm Mariela Shahram [employer] Work Phone: [facility] 12-05-2024 08:22-0400 Body mass index (BMI) [Ratio] 23.4 kg/m2 Mariela Shahram [employer] Work Phone: [facility] 12-05-2024 08:22-0400 Body temperature 98 [degF] Mariela Shahram [employer] Work Phone: [facility] 12-05-2024 08:22-0400 Body weight 68.94 kg Mariela Shahram [employer] Work Phone: [facility] 12-05-2024 08:22-0400 Diastolic blood pressure 82 mm[Hg] Mariela Shahram [employer] Work Phone: [facility] 12-05-2024 08:22-0400 Heart rate 62 /min Mariela Shahram [employer] Work Phone: [facility] 12-05-2024 08:22-0400 Respiratory rate 13 /min Mariela Shahram [employer] Work Phone: [facility] 12-05-2024 08:22-0400 SaO2% (BldA) [Mass fraction] 100 % Mariela Shahram [employer] Work Phone: [facility] 12-05-2024 08:22-0400 Systolic blood pressure 185 mm[Hg] Mariela Shahram [employer] Work Phone: [facility] 11-28-2024 11:09-0400 Body mass index (BMI) [Ratio] 24 kg/m2 Mariela Shahram [employer] Work Phone: [facility] 11-28-2024 11:09-0400 Body temperature 98.5 [degF] Mariela Shahram [employer] Work Phone: [facility] 11-28-2024 11:09-0400 Body weight 70.76 kg Mariela Shahram [employer] Work Phone: [facility] 11-28-2024 11:09-0400 Diastolic blood pressure 76 mm[Hg] Mariela Shahram [employer] Work Phone: [facility] 11-28-2024 11:09-0400 Heart rate 74 /min Mariela Shahram [employer] Work Phone: [facility] 11-28-2024 11:09-0400 Respiratory rate 16 /min Mariela Shahram [employer] Work Phone: [facility] 11-28-2024 11:09-0400 SaO2% (BldA) [Mass fraction] 100 % Mariela Shahram [employer] Work Phone: [facility] 11-28-2024 11:09-0400 Systolic blood pressure 152 mm[Hg] Mariela Shahram [employer] Work Phone: [facility] 11-20-2024 13:22-0400 Body temperature 98 [degF] Mariela Shahram [employer] Work Phone: [facility] 11-20-2024 13:22-0400 Diastolic blood pressure 81 mm[Hg] Mariela Shahram [employer] Work Phone: [facility] 11-20-2024 13:22-0400 Heart rate 86 /min Mariela Shahram [employer] Work Phone: [facility] 11-20-2024 13:22-0400 Respiratory rate 18 /min Mariela Shahram [employer] Work Phone: [facility] 11-20-2024 13:22-0400 SaO2% (BldA) [Mass fraction] 95 % Mariela Shahram [employer] Work Phone: [facility] 11-20-2024 13:22-0400 Systolic blood pressure 139 mm[Hg] Mariela Shahram [employer] Work Phone: [facility] 11-19-2024 12:37-0400 Body height 171.45 cm Mariela Shahram [employer] Work Phone: [facility] 11-19-2024 12:37-0400 Body weight 68.94 kg Mariela Shahram [employer] Work Phone: [facility] 11-19-2024 08:57-0400 Body mass index (BMI) [Ratio] 23.4 kg/m2 Mariela Shahram [employer] Work Phone: [facility] 11-18-2024 15:02-0400 Heart rate 67 /min Mariela Shahram [employer] Work Phone: [facility] 11-18-2024 15:02-0400 Respiratory rate 17 /min Mariela Olson [employer] Work Phone: [facility] 11-18-2024 15:02-0400 SaO2% (BldA) [Mass fraction] 100 % Marielabruce Olson [employer] Work Phone: [facility] 11-18-2024 13:14-0400 Diastolic blood pressure 86 mm[Hg] Mariela Shahram [employer] Work Phone: [facility] 11-18-2024 13:14-0400 Systolic blood pressure 186 mm[Hg] Mariela Cifuentesgar [employer] Work Phone: [facility] 11-18-2024 09:56-0400 Body height 170.18 cm Mariela Olson [employer] Work Phone: [facility] 11-18-2024 09:56-0400 Body mass index (BMI) [Ratio] 23.9 kg/m2 Mariela Olson [employer] Work Phone: [facility] 11-18-2024 09:56-0400 Body temperature 97.8 [degF] Mariela Shahram [employer] Work Phone: [facility] 11-18-2024 09:56-0400 Body weight 69.39 kg Mariela Cifuentesgar [employer] Work Phone: [facility] 11-07-2024 15:00-0400 Body temperature 98.1 [degF] Mariela Cifuentesgar [employer] Work Phone: [facility] 11-07-2024 15:00-0400 Diastolic blood pressure 69 mm[Hg] Mariela Shahram [employer] Work Phone: [facility] 11-07-2024 15:00-0400 Heart rate 79 /min Mariela Shahram [employer] Work Phone: [facility] 11-07-2024 15:00-0400 SaO2% (BldA) [Mass fraction] 99 % Mariela Shahram [employer] Work Phone: [facility] 11-07-2024 15:00-0400 Systolic blood pressure 149 mm[Hg] Mariela Shahram [employer] Work Phone: [facility] 11-07-2024 10:48-0400 Diastolic blood pressure 66 mm[Hg] Mariela Shahram [employer] Work Phone: [facility] 11-07-2024 10:48-0400 Heart rate 88 /min Mariela Shahram [employer] Work Phone: [facility] 11-07-2024 10:48-0400 Systolic blood pressure 153 mm[Hg] Mariela Shahram [employer] Work Phone: [facility] 11-07-2024 08:22-0400 Body temperature 98 [degF] Mariela Shahram [employer] Work Phone: [facility] 11-07-2024 08:22-0400 Respiratory rate 16 /min Mariela Shahram [employer] Work Phone: [facility] 11-07-2024 07:11-0400 SaO2% (BldA) [Mass fraction] 98 % Mariela Shahram [employer] Work Phone: [facility] 11-07-2024 03:38-0400 Body height 170.18 cm Mariela Shahram [employer] Work Phone: [facility] 11-07-2024 03:38-0400 Body mass index (BMI) [Ratio] 25.1 kg/m2 Mariela Shahram [employer] Work Phone: [facility] 11-07-2024 03:38-0400 Body weight 72.8 kg Mariela Shahram [employer] Work Phone: [facility] 11-06-2024 01:00-0400 Diastolic blood pressure 71 mm[Hg] Mariela Olson [employer] Work Phone: [facility] 11-06-2024 01:00-0400 Heart rate 77 /min Mariela Olson [employer] Work Phone: [facility] 11-06-2024 01:00-0400 Respiratory rate 18 /min Mariela Olson [employer] Work Phone: [facility] 11-06-2024 01:00-0400 SaO2% (BldA) [Mass fraction] 99 % Mariela Olson [employer] Work Phone: [facility] 11-06-2024 01:00-0400 Systolic blood pressure 169 mm[Hg] Mariela Olson [employer] Work Phone: [facility] 11-06-2024 00:36-0400 Body temperature 98.3 [degF] Mariela Shahram [employer] Work Phone: [facility] 11-05-2024 22:21-0400 Body height 170.18 cm Mariela Olson [employer] Work Phone: [facility] 11-05-2024 22:21-0400 Body mass index (BMI) [Ratio] 25.7 kg/m2 Mariela Shahram [employer] Work Phone: [facility] 11-05-2024 22:21-0400 Body weight 74.34 kg Mariela Cifuentesgar [employer] Work Phone: [facility] 10-31-2024 11:16-0400 Body mass index (BMI) [Ratio] 25.9 kg/m2 Mariela Shahram [employer] Work Phone: [facility] 10-31-2024 11:16-0400 Body temperature 98.4 [degF] Mariela Shahram [employer] Work Phone: [facility] 10-31-2024 11:16-0400 Body weight 74.89 kg Mariela Shahram [employer] Work Phone: [facility] 10-31-2024 11:16-0400 Diastolic blood pressure 83 mm[Hg] Mariela Shahram [employer] SAL[employer]ATE[employer] Work Phone: [facility] 10-31-2024 11:16-0400 Heart rate 71 /min Mariela Shahram [employer] SAL[employer] Work Phone: [facility] 10-31-2024 11:16-0400 Respiratory rate 18 /min Mariela Shahram [employer] Work Phone: [facility] 10-31-2024 11:16-0400 SaO2% (BldA) [Mass fraction] 98 % Mariela Shahram [employer] SALES [employer]ATE[employer] Work Phone: [facility] 10-31-2024 11:16-0400 Systolic blood pressure 175 mm[Hg] Mariela Shahram [employer] SALES [employer]ATE[employer] Work Phone: [facility] 10-24-2024 20:51-0400 Body temperature 98 [degF] Mariela Shahram [employer] SALES [employer]ATE[employer] Work Phone: [facility] 10-24-2024 20:51-0400 Diastolic blood pressure 73 mm[Hg] Mariela Shahram [employer] SALES [employer]OC[employer]ATE[employer] Work Phone: [facility] 10-24-2024 20:51-0400 Heart rate 72 /min Mariela Shahram [employer] SALES [employer] Work Phone: [facility] 10-24-2024 20:51-0400 Respiratory rate 18 /min Mariela Shahram [employer] SAL[employer]ATE[employer] Work Phone: [facility] 10-24-2024 20:51-0400 SaO2% (BldA) [Mass fraction] 98 % Mariela Shahram [employer] SALES [employer]ATE[employer] Work Phone: [facility] 10-24-2024 20:51-0400 Systolic blood pressure 126 mm[Hg] Mariela Shahram [employer] SALES [employer]ATE[employer] Work Phone: [facility] 10-24-2024 17:36-0400 Body height 170 cm Mariela Shahram [employer] SAL[employer]ATE[employer] Work Phone: [facility] 10-24-2024 17:36-0400 Body mass index (BMI) [Ratio] 26.2 kg/m2 Mariela Shahram [employer] SALES ASSOCIATE[employer] Work Phone: [facility] 10-24-2024 17:36-0400 Body weight 75.79 kg Mariela Shahram [employer] SAL[employer]ATE[employer] Work Phone: [facility] 10-17-2024 14:15-0400 Body mass index (BMI) [Ratio] 26.2 kg/m2 Mariela Shahram [employer] SALES [employer] Work Phone: [facility] 10-17-2024 14:15-0400 Body weight 75.74 kg Mariela Shahram [employer] SAL[employer]ATE[employer] Work Phone: [facility] 10-17-2024 14:15-0400 Diastolic blood pressure 87 mm[Hg] Mariela Shahram [employer] SALES [employer]ATE[employer] Work Phone: [facility] 10-17-2024 14:15-0400 Heart rate 60 /min Mariela Shahram [employer] SAL[employer] Work Phone: [facility] 10-17-2024 14:15-0400 Respiratory rate 16 /min Mariela Shahram [employer] SAL[employer] Work Phone: [facility] 10-17-2024 14:15-0400 Systolic blood pressure 148 mm[Hg] Mariela Shahram [employer] SAL[employer]ATE[employer] Work Phone: [facility] 09-07-2024 12:53-0500 Diastolic blood pressure 71 mm[Hg] Darrel Pringle MD [facility] 09-07-2024 12:53-0500 Systolic blood pressure 159 mm[Hg] Darrel Pringle MD [facility] 08-08-2024 09:55-0500 Body mass index (BMI) [Ratio] 26.9 kg/m2 Mariela Shahram [employer] SAL[employer] Work Phone: [facility] 08-08-2024 09:55-0500 Body temperature 98.5 [degF] Mariela Shahram [employer] SAL[employer] Work Phone: [facility] 08-08-2024 09:55-0500 Body weight 78.18 kg Mariela Shahram [employer] SAL[employer] Work Phone: [facility] 08-08-2024 09:55-0500 Diastolic blood pressure 90 mm[Hg] Mariela Shahram [employer] SAL[employer]ATE[employer] Work Phone: [facility] 08-08-2024 09:55-0500 Heart rate 81 /min Mariela Shahram [employer] SAL[employer]ATE[employer] Work Phone: [facility] 08-08-2024 09:55-0500 Respiratory rate 18 /min Mariela Shahram [employer] SALES [employer]ATE[employer] Work Phone: [facility] 08-08-2024 09:55-0500 SaO2% (BldA) [Mass fraction] 99 % Mariela Shahram [employer] SAL[employer] Work Phone: [facility] 08-08-2024 09:55-0500 Systolic blood pressure 196 mm[Hg] Mariela Shahram [employer] SALES [employer]ATE[employer] Work Phone: [facility] 07-18-2024 09:20-0500 Body mass index (BMI) [Ratio] 26.5 kg/m2 Mariela Shahram [employer] SAL[employer]ATE[employer] Work Phone: [facility] 07-18-2024 09:20-0500 Body temperature 97.8 [degF] Mariela Shahram [employer] SAL[employer]ATE[employer] Work Phone: [facility] 07-18-2024 09:20-0500 Body weight 76.91 kg Mariela Shahram [employer] SALES [employer]ATE[employer] Work Phone: [facility] 07-18-2024 09:20-0500 Diastolic blood pressure 88 mm[Hg] Mariela Shahram [employer] SALES [employer]ATE[employer] Work Phone: [facility] 07-18-2024 09:20-0500 Heart rate 71 /min Mariela Shahram [employer] SAL[employer]ATE[employer] Work Phone: [facility] 07-18-2024 09:20-0500 Respiratory rate 16 /min Mariela Shahram [employer] SAL[employer] Work Phone: [facility] 07-18-2024 09:20-0500 SaO2% (BldA) [Mass fraction] 97 % Mariela Shahram [employer]ATE[employer] Work Phone: [facility] 07-18-2024 09:20-0500 Systolic blood pressure 193 mm[Hg] Mariela Shahram [employer] SAL[employer]ATE[employer] Work Phone: [facility] 07-04-2024 14:18-0500 Body mass index (BMI) [Ratio] 26.4 kg/m2 Mariela Shahram [employer] SAL[employer]ATE[employer] Work Phone: [facility] 07-04-2024 14:18-0500 Body temperature 98.2 [degF] Mariela Shahram [employer] SAL[employer]ATE[employer] Work Phone: [facility] 07-04-2024 14:18-0500 Body weight 76.43 kg Mariela Shahram [employer] SAL[employer]ATE[employer] Work Phone: [facility] 07-04-2024 14:18-0500 Diastolic blood pressure 75 mm[Hg] Mariela Shahram [employer] SAL[employer]ATE[employer] Work Phone: [facility] 07-04-2024 14:18-0500 Heart rate 58 /min Mariela Shahram [employer] SALES [employer]ATE[employer]C Work Phone: [facility] 07-04-2024 14:18-0500 Respiratory rate 18 /min Mariela Shahram [employer] SAL[employer]ATE[employer] Work Phone: [facility] 07-04-2024 14:18-0500 SaO2% (BldA) [Mass fraction] 100 % Mariela Shahram [employer] SALES [employer]OCIATE[employer]C Work Phone: [facility] 07-04-2024 14:18-0500 Systolic blood pressure 165 mm[Hg] Mariela Shahram [employer] SALES [employer]OC[employer]ATE[employer]C Work Phone: [facility] 12-11-2023 08:05-0400 Body temperature 97.9 [degF] Dr. Neville Islas Work Phone: [facility] 12-11-2023 08:05-0400 Diastolic blood pressure 70 mm[Hg] Dr. Neville Islas Work Phone: [facility] 12-11-2023 08:05-0400 Heart rate 59 /min Dr. Neville Islas Work Phone: [facility] 12-11-2023 08:05-0400 Respiratory rate 13 /min Dr. Neville Islas Work Phone: [facility] 12-11-2023 08:05-0400 SaO2% (BldA) [Mass fraction] 95 % Dr. Neville Islas Work Phone: [facility] 12-11-2023 08:05-0400 Systolic blood pressure 151 mm[Hg] Dr. Neville Islas Work Phone: [facility] 12-11-2023 02:39-0400 Body height 172.[address] Neville Islas Work Phone: [facility] 12-11-2023 02:39-0400 Body mass index (BMI) [Ratio] 29 kg/m2 Dr. Neville Islas Work Phone: [facility] 12-11-2023 02:39-0400 Body weight 86.[address] Neville Islas Work Phone: [facility] 08-16-2023 16:10-0500 Body temperature 97.7 [degF] Dr. Neville Islas Work Phone: [facility] 08-16-2023 16:10-0500 Diastolic blood pressure 69 mm[Hg] Dr. Neville Islas Work Phone: [facility] 08-16-2023 16:10-0500 Heart rate 64 /min Dr. Neville Islas Work Phone: [facility] 08-16-2023 16:10-0500 Respiratory rate 18 /min Dr. Neville Islas Work Phone: [facility] 08-16-2023 16:10-0500 SaO2% (BldA) [Mass fraction] 100 % Dr. Neville Islas Work Phone: [facility] 08-16-2023 16:10-0500 Systolic blood pressure 154 mm[Hg] Dr. Neville Islas Work Phone: [facility] 08-16-2023 13:54-0500 Body weight 78.[address] Neville Islas Work Phone: [facility] 08-15-2023 22:26-0500 Body mass index (BMI) [Ratio] 25.5 kg/m2 Dr. Neville Islas Work Phone: [facility] 08-15-2023 21:10-0500 Diastolic blood pressure 80 mm[Hg] [facility] 08-15-2023 21:10-0500 Heart rate 71 /min [facility] 08-15-2023 21:10-0500 Respiratory rate 18 /min [facility] 08-15-2023 21:10-0500 SaO2% (BldA) [Mass fraction] 98 % [facility] 08-15-2023 21:10-0500 Systolic blood pressure 187 mm[Hg] [facility] 08-15-2023 14:37-0500 Body height 172.72 cm [facility] 08-15-2023 14:37-0500 Body mass index (BMI) [Ratio] 27.3 kg/m2 [facility] 08-15-2023 14:37-0500 Body temperature 95.5 [degF] [facility] 08-15-2023 14:37-0500 Body weight 81.6 kg [facility] Encounters Encounter Date Encounter Type Care Provider Facility Start: 02-21-2025 ambulatory Nicho Mace lity:[facility] Start: 02-21-2025 End: 02-21-2025 ambulatory Mariela Shahram [employer] SALES ASSOCIATE-C Work Phone: [facility] Start: 02-21-2025 End: 02-21-2025 Dr. Nicho Cantor MD [facility] Start: 02-19-2025 End: 02-19-2025 Dr. Nicho Cantor MD -[facility] Work Phone: Start: 02-19-2025 End: 02-19-2025 ambulatory Mariela Olson [employer] SALES [employer]OCIATE[employer]C Work Phone: -[facility] Start: 02-19-2025 Jackelyn Dominguezyonybrant COMMISSION SALES ASSOCIATE-C -[facility] Start: 02-19-2025 ambulatory Jackelyn Marquise Facility: [facility] Start: 02-14-2025 Encounter for other preprocedural examination Du Thomas [facility] Start: 02-14-2025 End: 02-14-2025 ambulatory Mariela Olson [employer] SALES [employer]OCIATE[employer]C Work Phone: -Ultrasound [facility] Start: 02-14-2025 End: 02-14-2025 Mariela Olson COMM[employer]ION SALES ASSOCIATE-C -Ultrasound [facility] Work Phone: Start: 02-14-2025 End: 02-14-2025 ambulatory Mariela Olson Facility:[facility] Start: 02-12-2025 Dr. Darrel Galvan MD -[facility] Work Phone: Start: 02-11-2025 ambulatory Ramirez Horne Fac ility:[facility] Start: 02-11-2025 End: 02-12-2025 Evaluation and management of inpatient Mariela Olson [employer]ATE[employer] Work Phone: -Intensive Care Unit Start: 02-11-2025 End: 02-12-2025 Dr. Ramirez Horne DO -Intensive Care Unit Work Phone: Start: 02-07-2025 End: 02-07-2025 ambulatory Mariela Olson [employer]ATE[employer] Work Phone: -Laboratory Specimen Start: 02-07-2025 End: 02-07-2025 Dr. Neville Islas DO -Laboratory Specime n Work Phone: Start: 02-07-2025 End: 02-07-2025 ambulatory [facility] Start: 02-07-2025 End: 02-07-2025 ambulatory [facility] Facility:[facility] Start: 01-29-2025 End: 02-05-2025 Telephone encounter Alvarez Pena MD Work Phone: [facility] - [place] Comment on above: Orders (CTA TAVR) Start: 01-18-2025 Encounter for preprocedural cardiovascular examination Adrian Flores [facility] Start: 01-14-2025 End: 01-14-2025 ambulatory Mariela Olson [employer] SALES [employer]OCIATE[employer]C Work Phone: [facility] Work Phone: Start: 01-14-2025 End: 01-14-2025 Dr. Adrian Flores MD -Access Nurse/Special Procedures Work Phone: Start: 01-14-2025 End: 01-14-2025 ambulatory Mariela Olson Facility:[facility] Start: 01-11-2025 ambulatory Darrel Pringle [facility] [place] Start: 01-09-2025 End: 01-09-2025 Dr. Brenda Araujo MD -[facility] Work Phone: Start: 01-09-2025 End: 01-09-2025 ambulatory Mariela Olson [employer] SALES ASSOCIATE-C Work Phone: [facility] Work Phone: Start: 01-06-2025 ambulatory Adrian Flores Facility:[facility] Start: 01-06-2025 Dr. Adrian Flores MD -[facility] Start: 12-14-2024 End: 12-14-2024 ambulatory Mariela Olson [employer] SALES ASSOCIATE[employer]C Work Phone: [facility] Work Phone: Start: 12-14-2024 End: 12-14-2024 Malinda Webster COMM[employer]ION SALES ASSOCIATE-C -Laboratory Work Phone: Start: 12-14-2024 End: 12-14-2024 ambulatory Malinda Webster COMMISSION SALES ASSOCIATE Facility:[facility] Start: 12-11-2024 Encounter for preprocedural laboratory examination Brenda Araujo [facility] Start: 12-05-2024 End: 12-05-2024 ambulatory Mariela Olson [employer] SALES [employer]OCIATE[employer]C Work Phone: [facility] Work Phone: Start: 12-05-2024 End: 12-05-[address] Brenda GarciaCat Scan, [facility] Work Phone: Start: 12-05-2024 End: 12-05-2024 Dr. Brenda GarciaCat Scan, [facility] Work Phone: Start: 12-04-2024 End: 12-04-2024 Patient encounter procedure Ari [facility] Gastroenterology Work Phone: Start: 12-04-2024 End: 12-04-[address] [facility] Gastroenterology Work Phone: Start: 12-04-2024 End: 12-05-2024 ambulatory [facility] Facility:[facility] Start: 11-30-2024 End: 11-30-2024 ambulatory Mariela Olson [employer] SALES ASSOCIATE-C Work Phone: [facility] Work Phone: Start: 11-30-2024 End: 11-30-[address] Brenda GarciaCat Scan, [facility] Work Phone: Start: 11-30-2024 End: 11-30-2024 Dr. Brenda GarciaCat Scan, [facility] Work Phone: Start: 11-30-2024 End: 11-30-2024 [facility] Start: 11-28-2024 ambulatory Mariela Olson Facility:[facility] Start: 11-28-2024 Non-patient / Non-visit Dr. Norberto DAVIS -[facility] Start: 11-28-2024 End: 11-28-2024 Patient encounter procedure Malinda Webster [employer] SALES ASSOCIATE-C -Cardiovascular Services Work Phone: Start: 11-28-2024 End: 11-28-2024 Dr. Adrian Flores MD -[facility] Start: 11-28-2024 End: 11-28-[address] Brenda Araujo MD -[facility] Work Phone: Start: 11-28-2024 End: 11-28-2024 Dr. Brenda Araujo MD -[facility] Work Phone: Start: 11-28-2024 End: 11-28-2024 ambulatory Brenda Araujo Facility:[facility] Start: 11-28-2024 End: 11-28-2024 ambulatory Malinda Webster COMMISSION SALES ASSOCIATE Facility:[facility] Start: 11-20-2024 Non-patient / Non-visit Dr. Kalen porter [facility] Inpatient Physicians Work Phone: Start: 11-20-2024 Dr. Neville singh [facility] Inpatient Physicians Work Phone: Start: 11-19-2024 Non-patient / Non-[facility] Work Phone: Start: 11-19-2024 Dr. Neville singh [facility] Inpatient Phys[facility] Work Phone: Start: 11-19-2024 Non-patient / Non-visit Ari Sage nd DO [facility] Start: 11-19-2024 Ari Friend DO [facility] Start: 11-18-2024 Non-patient / Non-visit Dr. Marybel Schrader MD -[facility] Work Phone: Start: 11-18-2024 ambulatory Kelvin Schrader Fac ility:[facility] Start: 11-18-2024 End: 11-20-2024 Evaluation and management of inpatient Dr. Kelvin Schrader MD -[facility] 3 Work Phone: Start: 11-18-2024 End: 11-20-2024 Dr. Neville Jang DO -[facility] 3 Work Phone: Start: 11-09-2024 ambulatory Darrel Pringle [facility] Start: 11-09-2024 Office outpatient vi sit 25 minutes Darrel Pringle [facility] Start: 11-07-2024 Non-patient / Non-visit Dr. Stevie francis DO -[facility] Work Phone: Start: 11-07-2024 Dr. Stevie Harrington DO -[facility] Work Phone: Start: 11-07-2024 End: 11-07-2024 ambulatory Mariela Olson Facility:[facility] Start: 11-07-2024 End: 11-07-2024 Non-patient / Non-visit Dr. Adrian [facility] Work Phone: Start: 11-07-2024 End: 11-07-2024 Dr. Adrian [facility] Work Phone: Start: 11-06-2024 Non-patient / Non-visit Ari Sage nd DO -[facility] Start: 11-06-2024 Ari Friend DO -[facility] Start: 11-06-2024 ambulatory Ari Silvestre Facility :[facility] Start: 11-06-2024 End: 11-07-2024 Evaluation and management [...] 10-31-2024 End: 10-31-2024 Dr. Papi Hernandez MD -[facility] Work Phone: Start: 10-31-2024 End: 10-31-2024 ambulatory Mariela Olson Facility:[facility] Start: 10-24-2024 End: 10-24-2024 Dr. Jerry Hightower DO -Emergency Departme nt Work Phone: Start: 10-24-2024 End: 10-24-2024 Emergency department patient visit Mariela Olson [employer]IATE-C Work Phone: -Emergency Department Work Phone: Start: 10-24-2024 End: 10-24-[address] Papi Hernandez MD -Cat [facility], [facility] Work Phone: Start: 10-24-[address] Papi Hernandez MD -[facility] Start: 10-24-2024 End: 10-24-2024 Dr. Papi Hernandez MD -[facility] Start: 10-24-2024 End: 10-24-2024 ambulatory [facility] COMM[employer]ION SALES ASSOCIATE-C Work Phone: [facility] Work Phone: Start: 10-24-2024 End: 10-24-2024 ambulatory Mariela Olson Facility:[facility] Start: 10-17-2024 End: 10-17-2024 ambulatory [facility] COMM[employer]ION SALES ASSOCIATE-C Work Phone: [facility] Work Phone: Start: 10-17-2024 End: 10-17-2024 Patient encounter procedure Malinda Webster COMM[employer]ION SALES ASSOCIATE-C -Laboratory Work Phone: Start: 10-17-2024 End: 10-17-2024 Malinda Webster COMM[employer]ION SALES ASSOCIATE-C -Laboratory Work Phone: Start: 10-17-2024 End: 10-17-2024 Patient encounter procedure Malinda Webster COMMISSION SALES ASSOCIATE-C -[facility] Work Phone: Start: 10-17-2024 End: 10-17-2024 Malinda Webster COMMISSION SALES ASSOCIATE-C -[facility] Work Phone: Start: 10-17-2024 End: 10-17-2024 ambulatory Mariela Olson Facility:[facility] Start: 10-17-2024 End: 10-17-2024 ambulatory Malinda Yisel Darin COMMISSION SALES ASSOCIATE Facility:[facility] Start: 09-07-2024 End: 09-07-2024 Darrel Pringle Work Phone: [facility] Start: 09-07-2024 ambulatory Darrel Pringle [facility] Start: 09-05-2024 End: 09-05-2024 Patient encounter procedure Mariela Olson COMM[employer] SALES ASSOCIATE-C -Laboratory, [facility] Start: 09-05-2024 End: 09-05-2024 Mariela Olson [employer] SALES ASSOCIATE-C -Laboratory, [facility] Start: 09-05-2024 End: 09-05-2024 ambulatory Mariela Olson Facility:[facility] Start: 08-08-2024 End: 08-08-[address] Papi Hernandez MD -[facility] Work Phone: Start: 08-08-2024 End: 08-08-2024 Dr. Papi Hernandez MD -[facility] Work Phone: Start: 08-08-2024 End: 08-08-2024 ambulatory Mariela Olson Facility:[facility] Start: 07-18-2024 End: 07-18-2024 Patient encounter procedure Selam Craig COMMISSION SALES ASSOCIATE-C -[facility] Work Phone: Start: 07-18-2024 End: 07-18-2024 ambulatory Mariela Olson Facility:[facility] Start: 07-13-2024 End: 07-13-2024 Darrel Pringle Work Phone: [facility] Start: 07-13-2024 ambulatory Darrel Pringle [facility] [place] Start: 07-04-2024 End: 07-04-[address] Papi Hernandez MD -[facility] Work Phone: Start: 07-04-2024 End: 07-04-2024 ambulatory Mariela Shahram Facility:[facility] Start: 07-04-2024 Encounter for other preprocedural examination Papi Hernandez [facility] Start: 06-22-2024 ambulatory Du Thomas Facility: [facility] Start: 06-22-2024 End: 06-22-2024 ambulatory Du Thomas Facility:[facility] Start: 06-20-2024 End: 06-20-2024 ambulatory Du Thomas Facility:[facility] Start: 06-18-2024 ambulatory Mariela Shahram [facility] Start: 06-12-2024 End: 06-12-2024 ambulatory Mariela Shahram Facility:[facility] Start: 06-08-2024 End: 06-10-2024 Evaluation and management of inpatient Lucy Polanco Facility:[facility] Start: 06-08-2024 ambulatory Lucy Polanco [facility] Start: 06-07-2024 End: 06-07-2024 Emergency department patient visit Jerry Campbell Facility:[facility] Start: 06-07-2024 End: 06-08-2024 [facility] Start: 05-31-2024 End: 05-31-2024 ambulatory Mariela Shahram Facility:[facility] Start: 05-25-2024 End: 05-25-2024 Darrel Pringle Work Phone: [facility] Start: 05-25-2024 ambulatory Darrel Pringle [facility] Start: 05-16-2024 End: 05-16-2024 ambulatory Mariela Olson Facility:[facility] Start: 05-10-2024 End: 05-10-2024 ambulatory Du Thomas Facility:[facility] Start: 05-07-2024 End: 05-07-2024 ambulatory Mariela Olson Facility:[facility] Start: 04-27-2024 ambulatory Du Thomas Facility: [facility] Start: 04-27-2024 End: 05-01-2024 Evaluation and management of inpatient Du Thomas Facility:[facility] Start: 04-27-2024 ambulatory Du Thomas [facility]: [facility] Start: 04-25-2024 [facility] Start: 04-25-2024 End: 04-25-2024 ambulatory [facility] Facility:[facility] Start: 04-23-2024 Patient encounter status Mariela Olson [employer] SALES [employer]OCIATE-C Work Phone: [facility] Comment on above: Right hemicolectomy 04/27/2024 Start: 04-20-2024 End: 04-20-2024 ambulatory Du Thomas Facility:[facility] Start: 04-13-2024 ambulatory Ari Friend Facility :[facility] Start: 04-13-2024 ambulatory Mariela Olson [facility] Start: 04-12-2024 End: 04-12-2024 ambulatory Danette Prosper Facility:[facility] Start: 04-12-2024 ambulatory Du Martha Facility: [facility] Start: 04-12-2024 End: 04-15-2024 Evaluation and management of inpatient Mariela Olson Facility:[facility] Start: 04-11-2024 End: 04-11-2024 ambulatory Mariela Olson Facility:[facility] Start: 03-30-2024 End: 03-30-2024 Darrel Pringle Work Phone: [facility] Start: 03-30-2024 ambulatory Darrel Pringle [facility] Start: 02-10-2024 End: 02-10-2024 Darrel Pringle Work Phone: [facility] Start: 12-21-2023 End: 12-21-2023 Darrel Pringle Work Phone: [facility] Start: 12-11-2023 End: 12-11-2023 Emergency department patient visit Dr. Neville Islas Work Phone: [facility]-Emergency Department Work Phone: Start: 10-26-2023 End: 10-26-2023 Darrel Pringle Work Phone: [facility] Start: 08-24-2023 End: 08-24-2023 Darrel Pringle Work Phone: [facility] Start: 08-22-2023 End: 08-22-[address] Neville Islas Work Phone: [facility] Start: 08-16-2023 Non-patient / Non-visit Dr. Kalen Islas Work Phone: [facility] Work Phone: Start: 08-16-2023 Non-patient / Non-visit Dr. Kalen Islas Work Phone: [facility] Start: 08-16-2023 Non-patient / Non-visit Dr. Kalen Islas Work Phone: [facility] Start: 08-15-2023 End: 08-15-2023 Non-patient / Non-visit Dr. Neville Islas Work Phone: [facility] Work Phone: Start: 08-15-2023 End: 08-16-2023 Evaluation and management of inpatient [facility]-Progressive Care Unit Work Phone: Start: 08-15-2023 Non-patient / Non-visit Dr. Kalen Islas Work Phone: [facility] Work Phone: Start: 06-29-2023 End: 06-29-2023 Darrel Pringle Work Phone: [facility] Start: 05-11-2023 End: 05-11-2023 Darrel Pringle Work Phone: [facility] Start: 03-30-2023 End: 03-30-2023 Darrel Pringle Work Phone: Dhruv AlmazanLivan Start: 02-23-2023 End: 02-23-2023 Darrel Pringle Work Phone: WYATT Licona Start: 01-25-2023 End: 01-25-2023 ambulatory [facility] Work Phone: Start: 01-25-2023 End: 01-25-2023 Patient encounter procedure [facility] Start: 01-19-2023 End: 01-19-2023 Darrel Pringle Work Phone: WYATT Licona Start: 01-05-2023 End: 01-05-2023 Darrel Pringle Work Phone: WYATT AlmazanLivan Start: 12-08-2022 End: 12-08-2022 Darrel Pringle Work [...] encounter status Beata Herrera MD Work Phone: [facility] Work Phone: Procedures Date Procedure Procedure Detail Performing Clinician Start: 02-21-2025 Insertion of tunneled indwelling catheter with cuff into pleura Mariela Olson [employer] Work Phone: Start: 02-14-2025 Centesis Mariela Olson [employer] Work Phone: Start: 02-12-2025 Blood count smear mcrscp w/mnl difrntl wbc count Mariela Olson [employer] Work Phone: Start: 02-12-2025 Estimated creatinine clearance Mariela burrell [employer] Work Phone: Start: 02-12-2025 Mean corpuscular hemoglobin concentration determination Marielabruce Olson [employer] Work Phone: Start: 02-12-2025 Nucleated red blood cell count procedure Marielabruce Olson [employer] Work Phone: Start: 02-12-2025 Platelet mean volume determination Marielabruce Olson [employer] Work Phone: Start: 02-12-2025 Serum inorganic phosphate measurement Mariela Olson [employer] Work Phone: Start: 02-11-2025 Computed tomography of abdomen and pelvis with intravenous contrast Mariela Olson [employer] Work Phone: Start: 02-11-2025 Centesis Mariela Olson [employer] Work Phone: Start: 02-10-2025 Blood count smear mcrscp w/mnl difrntl wbc count Mariela Olson [employer] Work Phone: Start: 02-10-2025 Calculation of international normalized ratio Mariela Olson [employer] Work Phone: Start: 02-10-2025 Estimated creatinine clearance Mariela burrell [employer] Work Phone: Start: 02-10-2025 Mean corpuscular hemoglobin concentration determination Mariela Olson [employer] SAL[employer] Work Phone: Start: 02-10-2025 Nucleated red blood cell count procedure Mariela Olson [employer] SAL[employer] Work Phone: Start: 02-10-2025 Platelet mean volume determination Mariela Shahram [employer] SAL[employer] Work Phone: Start: 02-10-2025 Triacylglycerol lipase measurement Mariela Olson [employer] Work Phone: Start: 02-10-2025 Urine microscopy: red cells Mariela Olson [employer] SAL[employer] Work Phone: Start: 02-10-2025 Urnls dip stick/tablet reagent auto microscopy Mariela Olson [employer] SAL[employer]C Work Phone: Start: 02-10-2025 Plain chest X-ray Mariela CALEROC Work Phone: Start: 02-07-2025 Urine culture Mariela Olson NP-C Work Phone: Start: 02-07-2025 Urnls dip stick/tablet reagent auto microscopy Mariela Olson NP-C Work Phone: Start: 01-11-2025 Computerized ophthalmic imaging retina Darrel Pringle Start: 01-11-2025 Eylea 1mg Pre-filled Syringe Darrel howard Start: 01-11-2025 Intravitreal njx pharmacologic agt spx Darrel Pringle Start: 01-08-2025 Blood count smear mcrscp w/mnl difrntl wbc count Mariela Olson [employer] Work Phone: Start: 01-08-2025 Mean corpuscular hemoglobin concentration determination Mariela Olson [employer] SAL[employer] Work Phone: Start: 01-08-2025 Nucleated red blood cell count procedure Mariela Olson [employer] Work Phone: Start: 01-08-2025 Platelet mean volume determination Mariela Olson [employer] SAL[employer]C Work Phone: Start: 12-14-2024 X-ray of chest, PA and lateral views Mariela Olson [employer] SAL[employer]C Work Phone: Start: 12-14-2024 Blood count smear mcrscp w/mnl difrntl wbc count Mariela Olson [employer] Work Phone: Start: 12-14-2024 Mean corpuscular hemoglobin concentration determination Mariela Olson [employer] SAL[employer] Work Phone: Start: 12-14-2024 Nucleated red blood cell count procedure Mariela Olson [employer] Work Phone: Start: 12-14-2024 Platelet mean volume determination Mariela Olson [employer] Work Phone: Start: 12-14-2024 Total iron binding capacity measurement Mariela Shahram [employer] Work Phone: Start: 12-05-2024 Biopsy/Inj or Needle Placement Mariela Ed gar [employer] Work Phone: Start: 12-05-2024 Mariela Olson [employer] SAL[employer]C Work Phone: Start: 12-05-2024 Blood count smear mcrscp w/mnl difrntl wbc count Marielabruce Olson [employer] Work Phone: Start: 12-05-2024 Calculation of international normalized ratio Mariela Olson [employer] SAL[employer] Work Phone: Start: 12-05-2024 Mean corpuscular hemoglobin concentration determination Mariela Shahram [employer] Work Phone: Start: 12-05-2024 Nucleated red blood cell count procedure Mariela Shahram [employer] Work Phone: Start: 12-05-2024 Platelet mean volume determination Mariela Shahram [employer] Work Phone: Start: 11-30-2024 CT of thorax with contrast Mariela Olson [employer] SAL[employer]C Work Phone: Start: 11-20-2024 Blood count smear mcrscp w/mnl difrntl wbc count Mariela Shahram [employer] Work Phone: Start: 11-20-2024 Mean corpuscular hemoglobin concentration determination Mariela Shahram [employer] Work Phone: Start: 11-20-2024 Nucleated red blood cell count procedure Mariela Shahram [employer] Work Phone: Start: 11-20-2024 Platelet mean volume determination Mariela Shahram [employer] Work Phone: Start: 11-19-2024 Colonoscopy Mariela Cifuentesgar [employer] Work Phone: Start: 11-19-2024 Estimated creatinine clearance Mariela burrell [employer] Work Phone: Start: 11-18-2024 Computed tomography of abdomen and pelvis with intravenous contrast Mariela Olson [employer] Work Phone: Start: 11-09-2024 Computerized ophthalmic imaging retina Darrel Pino Start: 11-09-2024 Eylea Free Drug Darrel Pringle Start: 11-09-2024 Intravitreal njx pharmacologic agt spx Darrel Pringle Start: 11-07-2024 Blood count smear mcrscp w/mnl difrntl wbc count Mariela Olson [employer] SAL[employer] Work Phone: Start: 11-07-2024 Estimated creatinine clearance Mariela burrell [employer] SALES ASSOCIATE[employer]C Work Phone: Start: 11-07-2024 Mean corpuscular hemoglobin concentration determination Mariela Olson [employer] SALES [employer] Work Phone: Start: 11-07-2024 Nucleated red blood cell count procedure Mariela Olson [employer]ES [employer] Work Phone: Start: 11-07-2024 Platelet mean volume determination Mariela Olson [employer] SAL[employer] Work Phone: Start: 11-06-2024 Flexible fiberoptic sigmoidoscopy Mariela Olson [employer] SAL[employer] Work Phone: Start: 11-06-2024 Clostridium difficile detection Mariela cruz [employer] SAL[employer] Work Phone: Start: 11-06-2024 Lactoferrin measurement Mariela Olson [employer] SALES [employer]IATE- C Work Phone: Start: 11-06-2024 Nucleic acid assay Mariela Olson [employer] Work Phone: Start: 11-06-2024 Ova OR parasites identification Mariela cruz [employer] SAL[employer]IATE[employer] Work Phone: Start: 11-06-2024 Ova&parasites direct smears concentration & id Mariela Olson [employer] SALES [employer]OCIATE[employer] Work Phone: Start: 11-06-2024 Iadna-dna/rna gi pthgn multiplex probe tq 6-11 Mariela Olson [employer] SAL[employer] Work Phone: Start: 11-06-2024 Osmolality measurement, serum Mariela vaca [employer] SALES [employer]IATE-[employer] Work Phone: Start: 11-06-2024 Serum inorganic phosphate measurement Mariela Olson [employer] SALES ASSOCIATE-C Work Phone: Start: 11-06-2024 Total iron binding capacity measurement Mariela Olson [employer] SALES ASSOCIATE[employer]C Work Phone: Start: 11-05-2024 Computed tomography of abdomen and pelvis with contrast Mariela Olson [employer] SALES [employer]OCI[employer] Work Phone: Start: 11-05-2024 Assay of lactate Mariela Olson [employer] SALES ASSOCIATE-C Work Phone: Start: 11-05-2024 Calculation of international normalized ratio Mariela Olson [employer] SALES [employer]OCIATE[employer] Work Phone: Start: 11-05-2024 Measurement of occult blood in stool specimen using immunoassay Mariela Olson [employer] SALES ASSOCIATE[employer]C Work Phone: Start: 10-24-2024 Urine microscopy: red cells Mariela Olson [employer] SALES ASSOCIATE-C Work Phone: Start: 10-24-2024 Urnls dip stick/tablet reagent auto microscopy Mariela Olson [employer] SALES [employer]OCIATE-C Work Phone: Start: 10-24-2024 Blood count smear mcrscp w/mnl difrntl wbc count Mariela Olson [employer] SALES ASSOCIATE-C Work Phone: Start: 10-24-2024 Estimated creatinine clearance Mariela burrell [employer] SALES [employer]OCIATE-C Work Phone: Start: 10-24-2024 Mean corpuscular hemoglobin concentration determination Mariela Olson [employer] SALES [employer]OCIATE[employer]C Work Phone: Start: 10-24-2024 Nucleated red blood cell count procedure Mariela Olson [employer] SALES ASSOCIATE-C Work Phone: Start: 10-24-2024 Platelet mean volume determination Mariela Olson [employer] SALES ASSOCIATE[employer]C Work Phone: Start: 10-24-2024 Triacylglycerol lipase measurement Mariela Olson [employer] SALES [employer]OCIATE[employer] Work Phone: Start: 10-24-2024 Ultrasound of scrotum with Doppler and color flow imaging Mariela Olson [employer] SALES [employer]OCIATE[employer]C Work Phone: Start: 10-24-2024 Computed tomography of abdomen and pelvis with intravenous contrast Mariela Olson [employer] SALES ASSOCIATE-C Work Phone: Start: 10-24-2024 Carcinoembryonic antigen cea Mariela Ryder r [employer] SAL[employer] Work Phone: Comment on above: Nonsmokers <3.9 Smokers <5.6[employer] Electrochemiluminescence Immunoassay(ECLIA)Values obtained with different assay methods or kitscannot be used interchangeably. Results cannot beinterpreted as absolute evidence of the presence orabsence of malignant disease.Performed at: [facility] [employer] [facility] [id number] Director: Jian Paredes PhD, Phone: [phone] Start: 10-24-2024 Estimated creatinine clearance Mariela burrell [employer] SALES ASSOCIATE-C Work Phone: Start: 10-24-2024 Mean corpuscular hemoglobin concentration determination Mariela Olson [employer] SALES ASSOCIATE[employer] Work Phone: Start: 10-24-2024 Nucleated red blood cell count procedure Mariela Olson [employer] SALES ASSOCIATE-C Work Phone: Start: 10-24-2024 Platelet mean volume determination Mariela Olson [employer] SALES ASSOCIATE[employer]C Work Phone: Start: 10-24-2024 Procedure Mariela Olson [employer] SALES ASSOCIATE-C Work Phone: Start: 10-17-2024 Urine microscopy: red cells Mariela Olson [employer] SALES ASSOCIATE-C Work Phone: Start: 10-17-2024 Urnls dip stick/tablet reagent auto microscopy Mariela Olson COMM[employer] SALES ASSOCIATE-C Work Phone: Start: 09-07-2024 End: 09-07-2024 Computerized ophthalmic imaging retina Darrel Pringle MD Start: 09-07-2024 End: 09-07-2024 Eylea 1mg Pre-filled Syringe Darrel howard MD Start: 09-07-2024 Eylea 1mg Pre-filled Syringe Darrel howard Start: 09-07-2024 End: 09-07-2024 Eylea Free Drug Darrel Pringle MD Start: 09-07-2024 End: 09-07-2024 Intravitreal njx pharmacologic agt spx Darrel Pringle MD Start: 09-05-2024 Albumin/Globulin ratio Mariela Olson [employer] SALES [employer]OCIATE[employer] Work Phone: Start: 09-05-2024 Anion gap measurement Marielabruce Olsno [employer] SALES ASSOCIATE-C Work Phone: Start: 09-05-2024 Blood count smear mcrscp w/mnl difrntl wbc count Mariela Olson [employer] SALES ASSOCIATE-C Work Phone: Start: 09-05-2024 BUN/Creatinine ratio Mariela Olson [employer] SALES [employer]OCIATE-C Work Phone: Start: 09-05-2024 Mean corpuscular hemoglobin concentration determination Marielabruce Olson [employer] SALES [employer]OCIATE[employer] Work Phone: Start: 09-05-2024 Measurement of renal function Mariela Schwartz ar [employer] SALES ASSOCIATE-C Work Phone: Comment on above: GFR Calc Start: 09-05-2024 Nucleated red blood cell count procedure Mariela Olson [employer] SALES ASSOCIATE-C Work Phone: Start: 09-05-2024 Platelet mean volume determination Marielabruce Olson [employer] SALES ASSOCIATE-C Work Phone: Start: 07-18-2024 Carcinoembryonic antigen cea Mariela Cifuentesga r [employer] SALES [employer]OCIATE[employer] Work Phone: Comment on above: Nonsmokers <3.9 Smokers <5.6[employer] Electrochemiluminescence Immunoassay(ECLIA)Values obtained with different assay methods or kitscannot be used interchangeably. Results cannot beinterpreted as absolute evidence of the presence orabsence of malignant disease.Performed at: [address] [id number] Director: Jian Paredes PhD, Phone: [phone] Start: 07-18-2024 Measurement of renal function Mariela Schwartz lio [employer] SALES [employer]OCIATE-[employer] Work Phone: Comment on above: GFR Calc Start: 07-13-2024 End: 07-13-2024 Computerized ophthalmic imaging retina Darrel Pringle MD Start: 07-13-2024 End: 07-13-2024 Eylea Free Drug Darrel Pringle MD Start: 07-13-2024 Eylea Free Drug Darrel Pringle Start: 07-13-2024 End: 07-13-2024 Intravitreal njx pharmacologic agt spx Darrel Pringle MD Start: 07-04-2024 Calculation of international normalized ratio Mariela Olson [employer] SALES [employer]OCIATE-C Work Phone: Start: 05-29-2024 Positron emission tomography with computed tomography Mariela Olson [employer] SALES ASSOCIATE-C Work Phone: Start: 05-25-2024 End: 05-25-2024 Computerized ophthalmic imaging retina Darrel Pringle MD Start: 05-25-2024 End: 05-25-2024 Eylea Free Drug Darrel Pringle MD Start: 05-25-2024 Eylea Free Drug Darrel Pringle Start: 05-25-2024 End: 05-25-2024 Intravitreal njx pharmacologic agt spx Darrel Pringle MD Start: 05-16-2024 Ferritin measurement Mariela Olson [employer] SAL[employer]OC[employer]ATE[employer] Work Phone: Start: 05-16-2024 Immature reticulocyte fraction Mariela burrell [employer] SALES [employer]IATE-C Work Phone: Start: 05-16-2024 Total iron binding capacity measurement Mariela Olson [employer] SALES ASSOCIATE-C Work Phone: Start: 03-30-2024 End: 03-30-2024 Computerized [...] bypass grafting Hx of CABG Malinda Webster [employer] SALES ASSOCIATE-C Comment on above: FUNG in situ mammary [...] 04-01-2025 Influenza vaccination [facility] Start: 02-21-2025 Patient discharge [facility] Start: 02-19-2025 End: 02-19-2025 Patient encounter procedure 02/19/2025 1:30 PM EDT Office Visit [address] [id number] Alvarez Pena MD [address] [place] [id number] [facility] Start: 02-19-2025 Ultrasonography of abdomen [facility] Start: 02-19-2025 US Abdomen limited [facility] Start: 02-19-2025 End: 02-19-2025 Patient encounter procedure [facility] [address] Start: 02-14-2025 Abdom paracentesis d x/ther w/imaging guidance [facility] Start: 02-12-2025 Patient discharge [facility] Start: 02-11-2025 Application of intermittent pneumatic compression device [facility] Start: 02-11-2025 End: 02-11-2025 Following clinical pathway protocol [facility] Start: 02-11-2025 Ambulation without limitation [facility] Start: 02-11-2025 Assessment of risk o f venous thromboembolism [facility] Start: 02-11-2025 Insertion of cathete r into peripheral vein [facility] Start: 02-11-2025 Oxygen therapy [facility] Start: 02-11-2025 Palliative care [facility] Start: 02-11-2025 Providing care accor ding to standard [facility] Start: 02-11-2025 Referral to service [facility] Start: 02-11-2025 [facility] Start: 02-11-2025 Hospital admission, emergency, from emergency room, medical nature [facility] Start: 02-11-2025 Centesis [facility] Start: 02-11-2025 Verification routine [facility] Start: 02-11-2025 Admission procedure [facility] Start: 02-11-2025 Patient referral to dietitian [facility] Start: 01-29-2025 End: 01-29-2026 CT Chest WO and CT angiogram Coronary arteries W contrast IV CTA Angiogram TAVR Imaging Routine Severe aortic stenosis Expected: 01/29/2025, Expires: 01/29/2026 [facility] Work Phone: Comment on above: Expected: 01/29/2025 , Expires: 01/29/2026 Start: 01-14-2025 Patient discharge [facility] Start: 01-09-2025 Patient referral [facility] Work Phone: Start: 12-05-2024 Catheterization of vein [facility] Start: 12-05-2024 Oxygen therapy [facility] Start: 12-05-2024 Patient discharge [facility] Start: 12-05-2024 Vital signs measurements [facility] Start: 12-05-2024 Following clinical p athway protocol [facility] Start: 12-05-2024 [facility] Start: 11-20-2024 Patient discharge [facility] Start: 11-18-2024 Application of intermittent pneumatic compression device [facility] Start: 11-18-2024 Following clinical p athway protocol [facility] Start: 11-18-2024 Ambulation without limitation [facility] Start: 11-18-2024 Assessment of risk o f venous thromboembolism [facility] Start: 11-18-2024 Insertion of cathete r into peripheral vein [facility] Start: 11-18-2024 Providing care accor ding to standard [facility] Start: 11-18-2024 Referral to gastroenterology service [facility] Start: 11-18-2024 [facility] Start: 11-18-2024 Verification routine [facility] Start: 11-18-2024 Admission procedure [facility] Start: 11-18-2024 Patient referral to dietitian [facility] Start: 11-09-2024 Jared Raymond 8 Weeks/ / MAY/ POSS EYLEA/ PAP [facility] Work Phone: Start: 11-07-2024 Patient discharge [facility] Start: 11-07-2024 Care planning and pr oblem solving actions [facility] Start: 11-06-2024 Ova and Parasites Ova and Parasites [facility] Start: 11-06-2024 Enteric precautions [facility] Start: 11-06-2024 Application of intermittent pneumatic compression device [facility] Start: 11-06-2024 Following clinical p athway protocol [facility] Start: 11-06-2024 Assessment of risk o f venous thromboembolism [facility] Start: 11-06-2024 Documentation procedure [facility] Start: 11-06-2024 Insertion of cathete r into peripheral vein [facility] Start: 11-06-2024 Measuring intake and output [facility] Start: 11-06-2024 Oxygen therapy [facility] Start: 11-06-2024 Providing care accor ding to standard [facility] Start: 11-06-2024 Provision of activit y privileges [facility] Start: 11-06-2024 Referral to gastroenterology service [facility] Start: 11-06-2024 Referral to service [facility] Start: 11-06-2024 [facility] Start: 11-06-2024 Admission procedure [facility] Start: 11-06-2024 Verification routine [facility] Start: 11-06-2024 Hospital admission, emergency, from emergency room, medical nature [facility] Start: 11-06-2024 [facility]: 11-06-2024 [facility] Start: 10-24-2024 [facility] Start: 10-24-2024 [facility] Start: 09-07-2024 Smoking cessation education Tobacco cessation counseling [facility] Start: 08-01-2024 Advance Directive Discussion Advance Directive Discussion [facility] Start: 07-13-2024 Smoking cessation education Tobacco cessation counseling [facility] Start: 07-04-2024 Patient referral [facility] Work Phone: Start: 04-01-2024 Covid-19 Vaccine ( season) Covid-19 Vaccine ( season) [facility] Start: 03-30-2024 Smoking cessation education Tobacco cessation counseling [facility] Start: 02-10-2024 Smoking cessation education Tobacco cessation counseling [facility] Start: 12-21-2023 Smoking cessation education Tobacco cessation counseling [facility] Start: 12-11-2023 [facility] Start: 08-16-2023 Patient discharge [facility] Start: 08-15-2023 Following clinical p athway protocol [facility] Start: 08-15-2023 Notification of physician [facility] Start: 08-15-2023 [facility] Start: 08-15-2023 Admission procedure [facility] Start: 08-15-2023 Hospital admission, emergency, from emergency room, medical nature [facility] Start: 08-15-[facility]23 [facility] Start: 06-29-[facility]23 Smoking cessation education Tobacco cessation counseling [facility] Start: 05-11-2023 Smoking cessation education Tobacco cessation counseling [facility] Start: 05-05-2023 DIABETES SCREEN DIABETES SCREEN [facility] Start: 05-05-2023 Diabetes Screening Diabetes Screenin g [facility] Start: 03-30-2023 Smoking cessation education Tobacco cessation counseling [facility] Start: 01-19-2023 Smoking cessation education Tobacco cessation counseling [facility] Start: 12-08-2022 Smoking cessation education Tobacco cessation counseling [facility] Start: 09-29-2022 Smoking cessation education Tobacco cessation counseling [facility] Start: 09-01-2022 Smoking cessation education Tobacco cessation counseling [facility] Start: 04-01-2022 Influenza vaccination INFLUENZA (#1) [facility] Start: 08-01-2021 ADVANCE DIRECTIVE DISCUSSION ADVANCE DIRECTIVE DISCUSSION [facility] Start: 05-05-2021 Hepatitis B surface antibody level LDL CHOLESTEROL [facility] Start: 08-03-2020 ANNUAL PCP TEAM BUCKLE [employer]APER AVTAR DISEASE VISIT ANNUAL PCP TEAM CHRONIC DISEASE VISIT [facility] Start: 07-20-2020 Adult depression scr eening assessment DEPRESSION SCREENING [facility] Start: 2019 RSV Immunization for Adults (1 - 1-dose 75+ series) RSV Immunization for Adults (1 - 1-dose 75+ series) [facility] Start: 2019 RSV Vaccine (1 - 1-d ose 75+ series) RSV Vaccine (1 - 1-dose 75+ series) [facility] Start: 03-01-2009 Medicare Annual Well ness Visit Medicare Annual Wellness Visit [facility] Start: 1994 Pneumococcal Vaccine : 50+ (1 of 1 - PCV) Pneumococcal Vaccine: 50+ (1 of 1 - PCV) [facility] Start: 1994 SHINGRIX VACCINE (1 of 2) BLEDSOE GRIX VACCINE (1 of 2) [facility] Start: 1994 Zoster Vaccines (1 of 2) Zoste r Vaccines (1 of 2) [facility] Start: 1963 DTaP/Tdap/Td Vaccine s (1 - Tdap) DTaP/Tdap/Td Vaccines (1 - Tdap) [facility] Start: 1963 Pneumococcal Vaccine : 50+ Years (1 of 2 - PCV) Pneumococcal Vaccine: 50+ Years (1 of 2 - PCV) [facility] Start: 1963 Urine microalbumin profile [facility] Start: 1962 Annual PCP Team [employer] avtar Disease Visit Annual PCP Team Chronic Disease Visit [facility] Start: 1962 Anxiety Screening Anxiety Screening [facility] Start: 1962 BP CONTROLLED (<130/80) BP CON TROLLED (<130/80) [facility] Start: 1962 Depression Screening Depression Scre ening [facility] Start: 1962 HEPATITIS C SCREENING HEPATITIS C SC REENING [facility] Start: 1956 Depression Screening Depression Scre ing [facility] Start: 1950 PNEUMOCOCCAL: 65+ (1 - PCV) PNEUMOCOCCAL: 65+ (1 - PCV) [facility] Start: 1944 COVID-19 VACCINE (#1) COVID-19 VACCI NE (#1) [facility] Start: 1944 Lipid panel Lipid Panel [facility] Anion gap in Serum o r Plasma [facility] BUN/Creatinine ratio [facility] Calcium [Mass/volume ] in Serum or Plasma [facility] Carbon dioxide, tota l [Moles/volume] in Central venous blood [facility] Carcinoembryonic Ag [Mass/volume] in Serum or Plasma [facility] Carcinoembryonic Ag [Mass/volume] in Serum or Plasma [facility] Carcinoembryonic Ag [Mass/volume] in Serum or Plasma [facility] CBC W Auto Different ial panel - Blood [facility] Comprehensive metabo lic 2000 panel - Serum or Plasma [facility] Creatinine [Mass/vol ume] in Serum or Plasma [facility] CT Abdomen and Pelvi s W contrast IV [facility] Erythrocyte mean corpuscular volume determination [facility] Ferritin [Mass/volum e] in Serum or Plasma [facility] Glucose [Mass/volume ] in Serum or Plasma [facility] Hematocrit [Volume Fraction] of Blood [facility] Hemoglobin [Mass/vol ume] in Blood [facility] Iron and Iron bindin g capacity panel - Serum or Plasma [facility] Leukocytes [#/volume ] in Blood [facility] Magnesium measurement [facility] Mean corpuscular hemoglobin concentration determination [facility] Mean corpuscular hemoglobin determination [facility] Measurement of renal function [facility] Neutrophil count [facility] Neutrophil percent differential count [facility] Ova OR parasites identification [facility] Patient Education [facility] Work Phone: Patient referral [facility] Work Phone: Platelets [#/volume] in Blood [facility] Potassium measurement [facility] Red blood cell count [facility] Red cell distributio n width determination [facility] Serum chloride measurement [facility] Sodium measurement [facility] Urea nitrogen [Mass/volume] in Serum or Plasma [facility] US [facility] Immunizations Immunization Date Immunization Notes Care Provider Fa [facility] 08-03-2019 influenza virus vacc ine, unspecified formulation Papi Hernandez MD Work Phone: [facility] Payers Date Payer Category Payer Self-pay [id number] 2024 Medicare [id number] 2024 Self-pay [id number] 2022 Self-pay 0 [id number] 2009 Medicare MEDICARE [employer]ER[employer] GRANT [id number] .[id number] 1944 Unknown [id number] 2.16.840.1.342517.3.579.2.134 7 1944 Unknown [id number] 2.16.840.1.354109.3.579.2.134 7 1944 Unknown [id number] 2.16.840.1.149799.3.579.2.134 7 1944 Unknown [id number] 2.16.840.1.630784.3.579.2.134 7 1944 Unknown [id number] 2.16.840.1.060161.3.579.2.134 7 1944 Unknown [id number] 2.16.840.1.851253.3.579.2.134 7 Unknown [id number] 2.16.840.1.959425.3.579.2.462 Unknown [id number] 2.16.840.1.917103.3.579.2.462 Unknown [id number] 2.16.840.1.598746.3.579.2.462 Unknown [id number] 2.16.840.1.959578.3.579.2.462 Unknown [id number] 2.16.840.1.077655.3.579.2.462 Unknown [id number] 2.16.840.1.160873.3.579.2.462 Unknown [id number] 2.16.840.1.793983.3.579.2.462 Unknown [id number] 2.16.840.1.039297.3.579.2.462 Unknown [id number] 2.16.840.1.152080.3.579.2.462 Unknown [id number] 2.16.840.1.823507.3.579.2.462 Unknown [id number] 2.16.840.1.878616.3.579.2.462 Unknown [id number] 2.16.840.1.521887.3.579.2.462 Unknown [id number] 2.16.840.1.447403.3.579.2.462 Unknown [id number] 2.16.840.1.382704.3.579.2.462 Unknown [id number] 2.16.840.1.713598.3.579.2.462 Unknown [id number] 2.16.840.1.664303.3.579.2.462 Unknown [id number] 2.16.840.1.011690.3.579.2.462 Unknown [id number] 2..840.1.194779.3.579.2.462 Unknown [id number] 2..840.1.263132.3.579.2.462 Unknown [id number] 2.840.1.219625.3.579.2.462 Unknown [id number] 2.840.1.204193.3.579.2.462 Unknown [id number] 2.840.1.353496.3.579.2.462 Unknown [id number] 2.840.1.199069.3.579.2.462 Unknown [id number] 2.840.1.506890.3.579.2.462 Unknown [id number] 2.840.1.517660.3.579.2.462 Unknown [id number] 2..840.1.255079.3.579.2.462 Unknown [id number] 2.840.1.742309.3.579.2.462 Unknown [id number] 2.16.840.1.960343.3.579.2.462 Unknown [id number] 2.840.1.041017.3.579.2.462 Unknown [id number] 2.16.840.1.942506.3.579.2.462 Unknown [id number] 2.16.840.1.864038.3.579.2.462 Unknown [id number] 2.16.840.1.653072.3.579.2.462 Unknown [id number] 2.16.840.1.800995.3.579.2.462 Unknown [id number] 2.16.840.1.608421.3.579.2.462 Unknown [id number] 2.16.840.1.539777.3.579.2.462 Unknown [id number] 2.16.840.1.729909.3.579.2.462 Unknown [id number] 2.16.840.1.676704.3.579.2.462 Unknown [id number] 2.16.840.1.895505.3.579.2.462 Unknown [id number] 2.16.840.1.848069.3.579.2.462 Unknown [id number] 2.16.840.1.661010.3.579.2.462 Unknown [id number] 2..840.1.315296.3.579.2.462 Unknown [id number] 2.16.840.1.196694.3.579.2.462 Unknown [id number] 2.16.840.1.837641.3.579.2.462 Unknown [id number] 2.16840.1.460043.3.579.2.462 Unknown [id number] 2.16.840.1.741490.3.579.2.462 Unknown [id number] 2.16.840.1.834955.3.579.2.462 Unknown [id number] 2.16.840.1.448552.3.579.2.462 Unknown [id number] 2.16.840.1.044975.3.579.2.462 Unknown [id number] 2.16.840.1.297828.3.579.2.462 Unknown [id number] 2.16.840.1.328956.3.579.2.462 Unknown [id number] 2.16.840.1.670008.3.579.2.462 Unknown [id number] 2.16.840.1.110625.3.579.2.462 Unknown [id number] 2.16.840.1.924395.3.579.2.462 Unknown [id number] 2.16.840.1.775386.3.579.2.462 Unknown [id number] 2.16.840.1.051241.3.579.2.462 Unknown [id number] 2.16840.1.628360.3.579.2.462 Unknown [id number] 2.16840.1.717276.3.579.2.462 Unknown [id number] 2.840.1.990502.3.579.2.462 Unknown [id number] 2.840.1.405205.3.579.2.462 Unknown [id number] 2.840.1.850880.3.579.2.462 Unknown [id number] 2.840.1.543741.3.579.2.462 Unknown [id number] 2.16840.1.913783.3.579.2.462 Unknown [id number] 2.16840.1.010444.3.579.2.462 Unknown [id number] 2.16.840.1.333468.3.579.2.462 Unknown [id number] 2.16840.1.907693.3.579.2.462 Unknown [id number] 2.16.840.1.295470.3.579.2.462 Unknown [id number] 2.16.840.1.274452.3.579.2.462 Unknown [id number] 2.16840.1.674275.3.579.2.462 Unknown [id number] 2.16.840.1.916268.3.579.2.462 Unknown [id number] 2.16.840.1.275465.3.579.2.462 Unknown [id number] 2.16.840.1.746633.3.579.2.462 Unknown [id number] 2.16.840.1.690748.3.579.2.462 Unknown [id number] 2.16.840.1.988131.3.579.2.462 Unknown [id number] 2.16.840.1.445388.3.579.2.462 Unknown [id number] 2.16.840.1.599519.3.579.2.462 Unknown [id number] 2.16.840.1.921845.3.579.2.462 Unknown [id number] 2.16.840.1.998928.3.579.2.462 Unknown [id number] 2.16.840.1.355980.3.579.2.462 Unknown [id number] 2.16840.1.120776.3.579.2.462 Unknown [id number] 2.16.840.1.268110.3.579.2.462 Social History Date Type Detail Facility Start: 08-01-1959 End: 05-05-2020 Tobacco smoking status NHIS Occasional tobacco smoker [facility] End: 08-01-1993 History of tobacco use Cigar Smoker [facility] Start: 05-07-2019 End: 01-29-2025 Cigarettes smoked current (pack per day) - Reported 1 [facility] Start: 05-07-2019 End: 05-05-2020 Tobacco use and exposure Smokeless tobacco non-user [facility] Start: 05-05-2020 Alcohol intake 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 quit cigarettes in 1993 [facility] Start: 1945 Sex Assigned At Not on file C [facility] Start: 03-06-2018 End: 09-07-2024 Tobacco smoking status NHIS Unknown if ever smoked [facility] Start: 01-25-2023 None [facility] Start: 10-31-2014 Spouse/ Signif icant Other [facility] Start: 01-25-2023 Cigarettes [facility] Start: 1945 Sex Assigned At Male [facility] Start: 09-07-2024 Alcohol intake Alcohol Use Details C [employer] [facility] Start: 10-24-2024 End: 02-18-2025 Tobacco smoking status NHIS Ex-smoker (finding) [facility] Start: 10-24-2024 End: 01-22-2025 Sex Male (finding) [facility] Start: 08-01-1959 End: 08-01-1993 History of tobacco use Cigarette Smoker [facility] Start: 05-05-2020 End: 01-29-2025 Tobacco use panel [facility] PHQ2 Score 0 [facility] c History of tobacco use Current smoker [facility] Start: 01-29-2025 Alcoholic beverage intake Lifetime non-drinker (finding) [facility] NEGATED: Highlighted rowStart: 09-07-2024 History of tobacco use Ex-cigarette smoker [facility] Medical Equipment Procedure Code Equipment Code Equipment Origin al Text Equipment Identifier Dates Sigmoidoscopy, flexible [id number] FDA Start: 11-06-2024 Colonoscopy ()[id number] FDA Start: 04-13-2024 Colonoscopy ()[id number] FDA Start: 11-19-2024 [place] Thk1.65mm P tfe 4x.5in Cardiovascular Sterile - [id number] Start: 07-19-2019 SAWYER ALCALA LG FDA Sta rt: 04-27-[address] art: 04-27-2024 [id number] FDA Start: 04-27-2024 ()[id number] FDA Start: 04-27-2024 CLIP,HEMDENILSON HARDY FDA Sta rt: 04-27-2024 CLIP,HEMDENILSON SHEPHERD FDA St art: 04-27-2024 CLIP,HEMDENILSON SHEPHERD FDA Sta rt: 04-27-2024 CLIP,HEMDENILSON SHEPHERD FDA St art: 04-27-2024 CLIP,HEMDENILSON SHEPHERD FDA Sta rt: 04-27-2024 CLIP,HEMDENILSON SHEPHERD FDA St art: 04-27-2024 CLIP,HEMDENILSON SHEPHERD FDA Sta rt: 04-27-2024 CLIP,HEMDENILSON SHEPHERD FDA St art: 04-27-2024 CLIP,HEMDENILSON SHEPHERD FDA Sta rt: 04-27-2024 CLIP,HEMDENILSON SHEPHERD FDA St art: 04-27-2024 CLIP,HEMDENILSON LERNER [employer] FDA Sta rt: 04-27-2024 CLIP,HEMDENILSON SHEPHERD FDA St art: 04-27-2024 FDA Start: 04-27-2024 FDA Start: 04-27-2024 CLIP,SAWYER LERNER [employer] FDA Sta rt: 04-27-2024 CLIP,SAWYER SHEPHERD FDA St art: 04-27-2024 FDA Start: [...] Facility 02-12-2025 Functional status Ambulates;Up ad raghavendra [facility] Work Phone: 11-20-2024 Functional status Ambulates [facility] Work Phone: 11-07-2024 Functional status Ambulates;Up ad raghavendra [facility] Work Phone: 08-16-2023 Functional status Ambulates;Bath room Privilege [facility] Work Phone: 08-15-2023 Functional status Tolerates Activity Well [facility] Work Phone: 07-23-2019 Are you deaf, or do you have serious difficulty hearing No 07/23/2019 4:22 PM Isaac Guzman, TASH.PIGMENT PUSHER No [facility] Work Phone: 07-23-2019 Are you blind, or do you have serious difficulty seeing, even when wearing glasses No 07/23/2019 4:22 PM Isaac Guzman, WEAPONS OFFICER [employer].PIGMENT PUSHER No [facility] 07-23-2019 Do you have serious difficulty walking or climbing stairs No 07/23/2019 4:22 PM Isaac Guzman, WEAPONS OFFICER [employer].PIGMENT PUSHER No [facility] 07-23-2019 Do you have difficul ty dressing or bathing No 07/23/2019 4:22 PM Isaac Guzman, WEAPONS OFFICER [employer].PIGMENT PUSHER No [facility] 07-23-2019 Because of a physica l, mental, or emotional condition, do you have difficulty doing errands alone such as visiting a physician's office or shopping No 07/23/2019 4:22 PM Isaac Guzman, WEAPONS OFFICER [employer].PIGMENT PUSHER No [facility] Mental Status Date Assessment Result Facility 02-21-2025 Cognitive function Voice/Name [facility] Work Phone: 02-14-2025 Cognitive function Awake;Alert;A ppropriate;Fo llows Commands [facility] Work Phone: 02-12-2025 Cognitive function Voice/Name [facility] Work Phone: 02-11-2025 Cognitive function Awake;Alert;A ppropriate;Fo llows Commands [facility] Work Phone: 12-05-2024 Cognitive function Voice/Name [facility] Work Phone: 12-05-2024 Cognitive function Awake;Alert;A ppropriate;Fo llows Commands [facility] Work Phone: 11-20-2024 Cognitive function Voice/Name [facility] Work Phone: 11-07-2024 Cognitive function Voice/Name [facility] Work Phone: 08-16-2023 Cognitive function Voice/Name [facility] Work Phone: 08-15-2023 Cognitive function Level Of Cons ciousness Awake;Alert;Appropriate;Fo genews Commands [facility] Work Phone: 07-23-2019 Because of a physica l, mental, or emotional condition, do you have serious difficulty concentrating, remembering, or making decisions No 07/23/2019 4:22 PM Isaac Guzman APRN.PIGMENT PUSHER No [facility] Clinical Notes 07-19-2019 to 02-21-2025 Note Date & Type Note Facility 02-21-2025 Consult note Note Date/Time February 21, 2025 1:20pm [facility] Medical Records Department [address] [facility] [place] [address] Pre-Anesthesia Evaluation 02/21/25 1308 MR#: [id number] Acct: [id number] Name: JARED RAYMOND Rep #:[id number] : 1945 79 From: Chasity Wen CRNA PCP: MARYAM Guerra Status[facility] Race: C Location: [place] [address] ASA Classification* ASA Classification ASA Classification: 4 Assessment & Plan Anesthesia* Anesthesia Assessment Anesthesia [...] Patient and Chart Anesthesia Focused Assessment* Temperature: 98.5 F Pulse Rate: 66 Blood Pressure: 132/54 Respiratory Rate: 14 Pulse Ox: 100 Oxygen Delivery Method: Room Air Airway Assessment Mouth opens: >3 cm Mallampati Score: II Teeth Condition: Missing (All teeth missing) Neck Range of motion (ROM): Full ROM Labs Anesthesia Preop lab: CBC WBC 6.4 K/mm3 (4.4-11.0) 02/12/25 05:02/12/25 RBC 3.44 M/mm3 (4.6-6.2) L 02/12/25 05:30 02/12/25 Hgb 10.0 g/dL (13.0-16.5) L 02/12/25 05: 5 Hct 28.6 % (40-54) L 02/12/25 05:30 02/12/25 Plt Count 232 K/mm3 (150-450) 02/12/25 05:30 02/12/25 CHEMISTRY Potassium 3.8 mmol/L (3.3-5.1) 02/12/25 05:30 02/12/25 Sodium 127 mmol/L (133-145) L 02/12/25 05:30 02/12/25 Magnesium 1.9 mg/dL (1.5-2.2) 02/12/25 05:30 02/12/25 Phosphorus 3.0 mg/dL (2.7-4.5) 02/12/25 05:30 02/12/25 BUN 12 mg/dL (4-19) 02/12/25 05:30 02/12/25 Creatinine 0.83 mg/dL (0.70-1.20) 02/12/25 05:30 02/12/25 Glucose 116 mg/dL (70-99) H 02/12/25 05:30 02/12/25 POC Glucose 113 mg/dL (74-106) H 04/27/24 06:06 04/27/24 TSH 1.900 uIU/mL (0.300-4.200) 11/06/24 04:23 04/0 03/25 COAG PT 13.6 SECONDS (11.7-14.9) 02/10/25 22:59 Pre-Assessment Diagnosis/Proposed Procedure Planned Operative Procedure(s): Insertion, Tunneled abdomen Tube, Pleurex Anesthesia History Anesthesia History - investigation officer: Anesthesia History - investigation officer Hx Hospitalization Yes: 10/2024 GI BLEED 02/18/25 13:29 Any Problems With Anesthesia Yes: SENSITIVE TO ANESTHETIC 02/18/25 13:29 Cholinesterase deficiency No 02/18/25 13:29 You/Your Family Experience No 02/18/25 13:29 fever (hyperthermia) with Relationship Recent Exposure to Contagious No 02/21/25 12:52 Disease Does patient have nerve No 02/18/25 13:29 stimulator Patient instructed to have device shut off --Does patient have Pacemaker No 02/21/25 12:52 or ICD? When Was Last Pacemaker Check QUESTION #4 FULL TEXT: You/Your Family Experience fever (hyperthermia) with Anesthesia Any additional information?: No Last Oral Intake Last Oral intake: Last Oral Intake NPO since 20:00 02/21/25 12:52 Meds taken in AM with sips of Yes 02/21/25 12:52 water? Meds patient instructed to see chart 02/21/25 12:52 take am of surgery Any additional information?: No PONV PONV - investigation officer: PONV - investigation officer Female No 02/18/25 13:29 HX of Motion Sickness No 02/18/25 13:29 HX of N/V After Surgery No 02/18/25 13:29 Non-Smoker Yes 02/18/25 13:29 Duration of Surgery greater No 02/18/25 13:29 than 60 minutes Number of Risk Factors 1 02/18/25 13:29 PONV Score Low Risk 02/18/25 13:29 Any additional information?: No Height & Weight Height & Weight: Anesthesia: Height & Weight Height 5 ft 7 in 02/21/25 12:52 Weight: 74 kg 02/21/25 12:52 Body Mass Index (BMI) 25.5 02/21/25 12:52 Respiratory Assessment Respiratory Assessment - investigation officer: Respiratory Tract Infection Hx - investigation officer Hx Respiratory Tract Infection No 02/18/25 13:29 Any additional information?: No STOP Sleep Apnea STOP Sleep Apnea - investigation officer: STOP Sleep Apnea - investigation officer Hx Hypertension Yes: CONTROLLED WITH MED 02/18/25 13:29 Hx Sleep Apnea No 02/18/25 13:29 CPAP No 11/19/24 13:52 BIPAP No 11/18/24 15:46 Do you snore loudly (louder No 02/18/25 13:29 than talking or can be heard Do you often feel tired/ No 02/18/25 13:29 fatigued/ sleepy during daytime? Has anyone observed you stop No 02/18/25 13:29 breathing during sleep? STOP Results Negative 02/18/25 13:29 QUESTION #5 FULL TEXT : Do you snore loudly (louder than talking or can be heard through closed doors)? Any additional information?: No Tobacco Use History Tobacco Use History - investigation officer: Tobacco Use History - investigation officer Tobacco Use Cigarettes 01/25/23 14:01 Smoking Status Former smoker 02/18/25 13:29 Hx Tobacco Use Yes: Cigar 02/18/25 13:29 Years Smoking Packs Smoked per Day Smoking Cessation Date was Yes - quit smoking within 15 02/18/25 13:29 within the last 15 years years Hx Smoking Cessation Date 04/01/23 02/18/25 13:29 Hx Smoking Cessation Yes 02/18/25 13:29 Counseling Any additional information?: No Hematologic Medial History Hematologic Hx - investigation officer: 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 Specify any problems Hx of Preganancy in last 3 N/A 02/18/25 13:29 Months Nurse Filling Out Transfusion NBUCHER 02/18/25 13:29 & Questions: Date: 02/18/25 02/18/25 13:29 Time: 13:30 02/18/25 13:29 Patient unable to answer at this time (ie. confused, unrespo Any additional information?: No /Reproduction History /Reproductive History - investigation officer: /Reproductive Hx- investigation officer Hx Now No 02/18/25 13:29 Gestational Age (in weeks): EDC: Hx Hx Para Hx Section SAB No 02/18/25 13:29 Any additional information?: No Active Medications Active Medications: Current Medications Generic Name Dose Route Start Last Admin Trade Name Tarunq PRN Reason Stop Dose Admin Lactated Ringer's 1,000 mls @ 15 mls/hr 02/21/25 12:30 02/21/25 13:00 IV 15 mls/hr .Q48H EVITA Administration PFSH Medical History Wears glasses Cancer Uses wheelchair Low iron History of GI bleed Heartburn Shortness of breath on exertion 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 Rectal bleeding GI bleed Diverticulosis Encounter for education Mediastinal lymphadenopathy 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 Pre-op testing Wears dentures Arthritis Anemia Gastric [...] tablet 5 mg PO DAILY HEART 05/16/24 02/21/25 History clonidine HCl 0.1 mg tablet 0.1 mg PO DAILY PRN hbp 10/06/24 History ferrous sulfate 325 mg (65 mg 325 mg PO DAILY 30 days #60 tabs 06/10/24 02/20/25 Rx iron) tablet (Iron (ferrous sulfate)) metoprolol tartrate 50 mg tablet 25 mg PO QDAY Blood p ressure/heart 10/17/24 02/21/25 History rat oxycodone 5 mg tablet 5 mg PO Q4H PRN pain 7 days #30 01/15/25 Unknown Rx tabs Allergy/AdvReac Type Severity Reaction Status Date / Time No Known Allergies Allergy Verified 02/21/25 12:47 Family History Father Arthritis Alcohol abuse Mother Alcohol abuse Liver disease Surgical History History of cardiac catheterization History of hemicolectomy (04/25/24) H/O vasectomy S/P right hemicolectomy History of tonsillectomy History of appendectomy 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 02/21/25 1320 <Electronically signed by Chasity bartlett CRNA> Date _ Chasity Wen CRNA Cosigner Signature: Date CC: ~ Signed [facility] Work Phone: 1(941) 302-977207-24-2025 History and physical note Author [facility] Note Date/Time February 21, 2025 3:49 pm [facility] Medical Records Department [address] [place] [address] History & Physical Exam 02/21/25 1245 MR#: [id number] Acct: [id number] Name: JARED RAYMOND Rep #:[id number] : 1945 79 From: Nicho nava MD PCP: MARYAM Guerra Status:[facility] Location: [place] [address] History and Physical Date of Admission: 02/21/25 Intake Vital Signs 02/11/2509:28 02/19/2514:49 Height 5 ft 7 in 5 ft 7 in Weight: 145 lb BMI 22.7 BP 167/67 H Blood Pressure Location Lt brachial Position Sitting Respiration 17 Pulse 62 Pulse Source Monitor Temp 97.0 F L Temp Source Temporal Pulse Oximetry (%) 97 Oxygen Delivery Method room air Intake Visit Reasons: PLEUREX CATH Chief Complaint: pleurex cath Accompanied by: and daughter Is patient in pain?: Yes Allergies No Known Allergies Allergy (Verified 02/19/25 14:51) Medications ?Medication ?Instructions ?Recorded ?Confirmed ?Type amlodipine 5 mg tablet 5 mg PO DAILY HEART 05/16/24 02/19/25 Hi story clonidine HCl 0.1 mg tablet 0.1 mg PO DAILY PRN hbp 06/08/24 5 History ferrous sulfate 325 mg (65 mg 325 mg PO DAILY 30 days #60 tabs 4 02/19/25 Rx iron) tablet (Iron (ferrous sulfate)) metoprolol tartrate 50 mg tablet 25 mg PO QDAY Blood pressure/heart 10/1702/19/25 History rat oxycodone 5 mg tablet 5 mg PO Q4H PRN pain 7 days #30 01/15/25 02/19/25 Rx tabs Have you fallen in the past year?: No PFSH Medical History Wears glasses Cancer Uses wheelchair Low iron History of GI bleed Heartburn Shortness of breath on exertion 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 Rectal bleeding GI bleed Diverticulosis Encounter for education Mediastinal lymphadenopathy 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 Pre-op testing Wears dentures Arthritis Anemia Gastric [...] Benign essential hypertension Surgical History History of cardiac catheterization History of hemicolectomy (04/25/24) H/O vasectomy S/P right hemicolectomy History of tonsillectomy History of appendectomy 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) Family History Father Arthritis Alcohol abuseMother Alcohol abuse Liver disease Social History (Reviewed 02/19/25 @ 14:49 by DEVORAH Odom Smoking Status: Former smoker Tobacco: How many years used: 15 alcohol intake: never substance use type: does not use HPI HPI HPI: The patient is an 79-year-old male with colon cancer with metastasis and liver failure. The patient is here for Pleurx catheter placement for ascites which isrecurring. The patient had 2 paracentesis procedures last week. He is still having abdominal pain. He is jaundiced. He is in a hospice. ROS General General: Yes weakness; No weight change, appetite, fatigue, colon cancer or breast cancer HEENT HEENT: No difficulty swallowing, eye injury, eye surgery, swollen glands or hoarseness Endo Endocrine: No thyroid disease, diabetes mellitus, thyroid cancer, Hair loss, heat intolerance or cold intolerance Skin Skin: No rash or changing moles Musc Musculoskeletal: No back problems, arthritis, rheumatoid arthritis, gout or joint pain Cardio Cardiovascular: Yes murmur, high blood pressure and shortness of breath with exertion; No pacemaker, heart disease, atrial fibrillation, heart attack, heart stent, palpitations or chest pain Psych Psychiatric: No depression, anxiety or hearing voices Resp Respiratory: No shortness of breath, No sleep apnea, Yes cough, No COPD, No asthma, No emphysema and No wheezing Gastro Gastrointestinal: No abdominal pain, No nausea or vomiting, No diarrhea, No constipation, No blood in stool, No acid reflux, No hemorrhoids, No ulcers, No gallbladder problem and No black,tarry stools Aleks Hematologic: Yes blood thinners, No blood disorders, No bleeding, No anemia and No blood clots Additional Details: ASA Neuro Neurologic: No system reviewed and no additional complaints, except as documented, No as per HPI, No abnormal gait, No abnormal hearing, No abnormal movements, No abnormal speech, No behavioral changes, Yes burning sensations, Noconfusion, No convulsions, Yes disequilibrium, Yes dizziness, No localized weakness, No frequent falls, No headache(s), No lack of coordination, No loss ofvision, No memory loss, Yes numbness, No other visual disturbances, Yes radicular pain, No restless legs, No sensory deficit, No syncope, Yes tingling, No tremor(s), Yes weakness and No other Exam Const General: cooperative Orientation: alert and oriented x3 HENMT Head: normal to inspection Neck Neck: normal visual inspection and full ROM Chest Chest palpation & inspection: normal inspection of the chest Resp Effort & Inspection: normal respiratory effort Auscultation: clear to auscultation bilaterally Cardio Rate: regular rate Rhythm: regular rhythm GI Inspection: non-distended Palpation: soft and nontender Skin General: no rashes or lesions noted Neuro General: patient alert and patient oriented x3 Extrem General: full ROM Psych Appearance: grossly normal Mental Status: mental status grossly normal Assessment and Plan Assessment and Plan (1) Ascites: Status: Acute (2) Acute liver failure: Status: Acute (3) Metastatic colon cancer to liver: Status: Acute Plan I discussed placing an abdominal Pleurx catheter for drainage of the ascites as a palliative measure. Patient understands the risks and is willing to proceed. I discussed the risks of bleeding, infection, injury to underlying bowel or organs. Patient would like to proceed. Nicho Cantor MD Pager: [facility] [address] [place] [address], [address] [place] [address] Office: I have examined the patient and the H&P has been reviewed. There are no clinicalchanges since date of exam. 02/21/25 1245 <Electronically signed by Nicho Cantor MD> Cosigner Signature (if applicable): CC: MARYAM Olson; Dr. Nicho Cantor MD~ Signed [facility] Work Phone: 1(330) 875-187707-24-2025 Procedure [facility] 02-14-2025 Telephone encounter Note* Telephone Encounter - Jeanne Wesley - 02/14/2025 2:42 PM EDT Chart made and COMMISSION SALES ASSOCIATE packet mailed [id number] Miscellaneous Notes* Telephone Encounter - Jeanne Wesley - 02/14/2025 2:42 PM EDT Chart made and COMMISSION SALES ASSOCIATE packet mailed * Telephone Encounter - Jeanne Wesley - 02/05/2025 3:23 PM EDT Patient sched for financial counseling and CTA/VC appts. I will mail her COMMISSION SALES ASSOCIATE packet and make chart. * Telephone Encounter - Obdulia Solo RN - 02/04/2025 9:54 AM EDT Spoke with patient to schedule CTA 02/19 at 11:30 am. In scheduling, patient has Medicare Part A only. Reviewed with central scheduling and patient would have to pay 50% upfront. Spoke with and confirmed patient is self pay with medicare part A. Instructed will have drum carrier arrange for financial counseling/assistance with [facility] prior to any appts/tests/procedures. Routed to Clau Wesley to arrange and call patient back * Telephone Encounter - Obdulia Solo RN - 01/31/2025 12:44 PM EDT Left message for patient to call office back to schedule CT scan on 02/19 * Telephone Encounter - Obdulia Solo RN - 01/29/2025 11:28 AM EDT Patient scheduled in valve clinic on 02/19 for aortic stenosis, cath and echo completed by Dr. Flores's office. BMP completed 01/08/25 in media. Pended order for CTA TAVR, [employer] to sign. Will call patient to schedule same day as OV. documented in this [facility]07-17-2025 Radiology Diagnostic study [facility]07-15-2025 Discharge summary Author Darrel Galvan [facility] Note Date/Time February 12, 2025 8:19 am [facility] Medical Records Department [address] [place] [address] Discharge Summary 02/12/25 0815 MR#: [id number] Acct: [id number] Name: JARED RAYMOND Rep #:[id number] : 1945 79 From: Darrel Galvan MD PCP: MARYAM Guerra Status:ADM IN Location: ICU CVICU 1-1 Providers Date of Admission: 02/11/25 Date [...] 72.4 H, Lymph % (Auto) 9.0 L, Cherry % (Auto) 16.6 H, Eos % (Auto) [...] with 3.7 L fluid removed. Reading Location: [facility] D/C Instructions Discharge Activity: Return to Normal [...] Sanford; Julissa Wetzel; Antonina Lizarraga; Nanci Islas COMMISSION SALES ASSOCIATE; Latanya Snowden Discharge Orders/Prescriptions Prescriptions: No Action [...] Self Care Charges/Coding Visit Charges Inpatient E&M: 20198 Disch Hosp >30min 02/12/25 0819 <Electronically signed by Darrel Galvan MD> Cosigner Signature (if applicable): CC: ABDIASC Mariela Olson; Dr. Darrel Galvan MD~ Signed [facility] Work Phone: 1(530) 445-145307-15-2025 Progress note Author Darrel Galvan [facility] Note Date/Time February 12, 2025 8:15 am [facility] Medical Records Department [address] [place] [address] Progress Note - Hospitalist 02/12/25 0655 MR#: [id number] Acct: [id number] Name: JARED RAYMOND Rep #:[id number] : 1945 79 From: Darrel Galvan MD PCP: MARYAM Guerra Status:ADM IN [facility] Reason for Visit Chief Complaint: Worsening [...] 72.4 H, Lymph % (Auto) 9.0 L, Cherry % (Auto) 16.6 H, Eos % (Auto) [...] with 3.7 L fluid removed. Reading Location: [facility] Physical Exam Narrative GENERAL: cooperative HEENT: Atraumatic; [...] documentation, 35Minutes Charges/Coding Visit Charges Inpatient E&M: 96899 Subs Hosp L2 02/12/25 0815 <Electronically signed by Darrel Galvan MD> Cosigner Signature (if applicable): CC: ~ Signed [facility] Work Phone: 1(371) 187-488707-15-2025 Radiology Diagnostic study [facility]07-15-2025 [facility]07-14-2025 Radiology Diagnostic study [facility]07-14-2025 Progress note Author Darrel Galvan [facility] Note Date/Time February 11, 2025 12:3 6pm [facility] Medical Records Department [address] [place] [address] Progress Note - Hospitalist 02/11/25 0725 MR#: [id number] Acct: [id number] Name: JARED RAYMOND Rep #:[id number] : 1945 79 From: Darrel Galvan MD PCP: Mariela Olson COMMISSION SALES ASSOCIATECatherine Status:ADM IN Location: ICU CVICU20 1- Reason for Visit Chief Complaint: Worsening [...] 78.1 H, Lymph % (Auto) 7.7 L, Cherry % (Auto) 12.4 H, Eos % (Auto) [...] IMPRESSION: No acute chest findings. Reading Location: [facility]-2 Abdomen/Pelvis CT 02/11/25 22:42 IMPRESSION: Worsening liver metastatic disease. Persistent abdominal adenopathy. Interval development of large ascites likely malignant. Interval dilatation of the biliary tree without obstructing lesion visualized. Consider MRCP. 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 Interval development of proximal left-sided hydronephrosis, the ureter may be compressed by retroperitoneal adenopathy. Status post right hemicolectomy, with ileocolic anastomosis. Reading Location: [place] [address] Physical Exam Narrative GENERAL: cooperative HEENT: Atraumatic; [...] 16 minutes Charges/Coding Visit Charges Inpatient E&M: 74813 PROLNG IP/OBS E/M EA 15 MIN Multi Select Codes Visit Charges Visit Charges: 56238 PROLNG IP/OBS E/M EA 15 MIN Hospitalists' Procedures Procedures: 02555 Advncd Care Plan addl 30 Min 02/11/25 1236 <Electronically signed by Darrel Galvan MD> Cosigner Signature (if applicable): CC: ~ Signed [facility] Work Phone: 1(499) 683-513107-14-2025 Discharge summary Author [facility] Note Date/Time February 11, 2025 7:46 am [facility] Medical Records Department [address] [facility] [place] [address] Emergency Department Summary 02/11/25 MR#: [id number] Acct: [id number] Name: SEGUNDOJARED L Rep #:[id number] : 1945 79 From: Harrison Linares DO [...] failure and therefore he presents for evaluation [facility] Medical History Metastasis to liver Regional lymph [...] 78.1 H Lymph % (Auto) 7.7 L Cherry % (Auto) 12.4 H Eos % (Auto) [...] Clarity Cloudy Urine pH 6.0 Ur Specific [place] 1.015 Urine Protein 30 H Urine Glucose [...] IMPRESSION: No acute chest findings. Reading Location: [place] [address] Chest x-ray as interpreted by the emergency medicine physician reveals infiltrate pneumothorax or pleural effusion Management Discussion w/another healthcare provider: Hospitalist Discharge Plan Dx/Rx/DC Orders Clinical Impression: Acute liver failure, Ascites, Benign essential hypertension, Aortic stenosis, Metastatic colon cancer to liver Disposition Disposition: Acute Care Hospital [facility] Discharge Date/Time: 02/11/25 04:22 What to do if you have Problems For any increased pain, shortness of breath, bleeding, nausea or vomiting, chestpain, or any unexpected problems, contact your Primary Care Provider. Call [facility] ([phone]) or report to the closest Emergency Room. Call 911 if necessary. 02/11/25 0746 <Electronically signed by Harrison Linares DO> Cosigner Signature (if applicable): CC: CHRISTEL-Jenifer Olson ~ Signed [facility] Work Phone: 1(736) 145-931107-14-2025 Progress note Author Ramirez Horne [facility] Note Date/Time February 11, 2025 6:56 am [facility] Medical Records Department [address] [place] [address] Progress Note - Hospitalist 02/11/25 0650 MR#: [id number] Acct: [id number] Name: JARED RAYMOND Rep #:[id number] : 1945 79 From: Ramirez almazan DO PCP: MARYAM Guerra Status:ADM IN Location: ICU CVICU20 1-1 Hospitalist Note Notified by nursing that [...] Cosigner Signature (if applicable): CC: ~ Signed [facility] Work Phone: 1(411) 368-953407-14-2025 History and physical note Author Ramirez Horne [facility] Note Date/Time February 11, 2025 4:32 am [facility] Medical Records Department [address] [place] [address] H&P Exam - Hospitalist 02/11/25 0224 MR#: [id number] Acct: [id number] Name: JARED RAYMOND Rep #:[id number] : 1945 79 From: Ramirez almazan DO PCP: MARYAM Guerra Status:ADM IN Location: ICU CVICU20 1-1 HPI - General General Date of Admission: 02/11/25 Date of Service: 02/11/25 Chief Complaint: Worsening abdominal distention HPI Narrative JARED RAYMOND, is a 79 M who presented to [facility] ED on 02/11/2025 with worsening abdominal distention. [...] paracentesis. Will be admitted for further management. [facility] Medical History Metastasis to liver Regional lymph [...] 78.1 H, Lymph % (Auto) 7.7 L, Cherry % (Auto) 12.4 H, Eos % (Auto) [...] findings. Reading Location: [facility] Abdomen/Pelvis CT 02/11/25 22:42 IMPRESSION: Worsening liver [...] anastomosis. Reading Location: [facility] Assessment & Plan Assessment/Plan (1) Acute liver failure: (2) Ascites: (3) Metastasis to liver: PLAN: Plan Patient is an 79-year-old male who presented to [facility] ED on02/11/2025 with worsening abdominal distention. 1. Impending liver failure with ascites presumed secondary to colon cancer withliver metastases ? Admit under inpatient status to [facility]. Case management consulted. Hospice consulted. Patient with [...] 75 minutes. Charges/Coding Visit Charges Inpatient E&M: 78046 Init Hosp L3 02/11/25 0432 <Electronically signed by Ramirez Horne DO> Cosigner Signature (if applicable): CC: CHRISTEL-Jenifer Olson; Dr. Ramirez Horne DO~ Signed [facility] Work Phone: 1(645) 361-215707-13-2025 Radiology Diagnostic study [facility]07-08-2025 NotePatient sched for financial counseling and CTA/VC appts. I will mail her COMMISSION SALES ASSOCIATE packet and make chart.[facility]07-08-[facility] Telephone encounter Note * Telephone Encounter - Jeanne Wesley - 02/05/2025 3:23 PM EDT Patient sched for financial counseling and CTA/VC appts. I will mail her COMMISSION SALES ASSOCIATE packet and make chart. [id number] Telephone encounter Note* Telephone Encounter - Obdulia Solo RN - 02/04/2025 9:54 AM EDT Spoke with patient to schedule CTA 02/19 at 11:30 am. In scheduling, patient has Medicare Part A only. Reviewed with central scheduling and patient would have to pay 50% upfront. Spoke with and confirmed patient is self pay with medicare part A. Instructed will have drum carrier arrange for financial counseling/assistance with [facility] prior to any appts/tests/procedures. Routed to Clau Wesley to arrange and call patient back [facility] [id number] Telephone encounter Note* Telephone Encounter - Obdulia Solo RN - 01/31/2025 12:44 PM EDT Left message for patient to call office back to schedule CT scan on 02/19 [facility] [id number] Telephone encounter Note* Telephone Encounter - Obdulia Solo RN - 01/29/2025 11:28 AM EDT Patient scheduled in valve clinic on 02/19 for aortic stenosis, cath and echo completed by Dr. Flores's office. BMP completed 01/08/25 in media. Pended order for CTA TAVR, [employer] to sign. Will call patient to schedule same day as OV. 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 Adrian Flores MD~ Signed [facility] Work Phone: 1(457) 160-624506-08-2025 [facility]05-17-2025 Radiology Diagnostic study [facility]05-07-2025 Radiology Diagnostic study note [facility] Imaging Services [address] [place], [place] [address] Biopsy/Inj or Needle Placement MR#: [id number] Acct: [id number] Name: JARED RAYMOND Rep #: [id number] : 1945 M 79 From: Esdras Watts MD PCP: MARYAM Guerra Status: REG CLI Study:Biopsy/Inj or Needle Placement Date of Exam: 12/05/24 Exam# [id number] Ordering Dr: Brenda Araujo MD PROCEDURE: BIOPSY/INJ [...] placement of an 18 gauge 10 cm [employer] coaxial core biopsy system under CT guidance. [...] core biopsy. Pathology results pending. Reading Location: [place] [address] CC: COMMISSION SALES ASSOCIATE-C Mariela Olson; Dr. Brenda Araujo MD ~ Cad Intern: Signed [facility]05-04-2025 Radiology Diagnostic study [facility]04-22-2025 Discharge summary Author Neville Jang [facility] Note Date/Time November 20, 2024 1:2 2pm [facility] Medical Records Department [address] [place] [address] Instructions for Home/Discharge Instructions 11/20/24 1241 MR#: [id number] Acct: [id number] Name: JARED RAYMOND Rep #:[id number] : 1945 79 From: Neville Jang DO [...] Selam Craig NP, NP-C [Med Staff - [facility], 1928[facility]1983 Practice Prof] - See Referral Note (Theoffice will call you to confirm an appointment time) Disposition Disposition (needs filled in before D/C Order can be placed): Home, Self Care 11/20/24 1322<Electronically signed by Neville Jang DO>Neville Jang DO CC: MARYAM Olson; Dr. Kelvin Schrader MD ~ Signed [facility] Work Phone: 1(686) 617-146104-22-2025 Consult note [facility] Medical Records Department [address] [place] [address] Counseling Note - Pharmacy 11/20/24 1342 MR#: [id number] Acct: [id number] Name: JARED RAYMOND Rep #:[id number] : 1945 79 From: Kush Daniel PCP: MARYAM Guerra Status:ADM IN Y Location: [place] [address] Pharmacy [place] Med Reconciliation Pharmacy Service has performed discharge [...] Signature (if applicable): Date CC: ~ Signed [facility]04-22-2025 Discharge summary [facility] Medical Records Department [address] [place] [address] Instructions for Home/Discharge Instructions 11/20/24 1241 MR#: [id number] Acct: [id number] Name: JARED RAYMOND Ravi Rep #:[id number] : 1945 79 From: Neville Jang DO [...] Selam Craig NP, NP-C [Med Staff - [facility], [facility]1983 Practice Prof] - See Referral Note (Theoffice will call you to confirm an appointment time) Disposition Disposition (needs filled in before D/C Order can be placed): Home, Self Care 11/20/24 1322Mark Tereletsky DO CC: COMMISSION SALES ASSOCIATE-C Mariela lOson; Dr. Klevin Schrader MD ~ Signed [facility]04-22-2025 [facility] Consult note Author Keo [facility] Note Date/Time November 20, 2024 9:5 5am [facility] Medical Records Department [address] [place] [address] Anesthesia Postop Eval II 11/20/24 0952 MR#: [id number] Acct: [id number] Name: JARED RAYMOND Rep #:[id number] : 1945 79 From: Keo Burgos MD PCP: MARYAM Guerra Status:ADM IN Y Race: C Location: [place] [address] Anesthesia Postop Eval I Sum Postop Eval [...] MD Cosigner Signature: Date CC: ~ Signed [facility] Work Phone: 1(165) 439-822704-22-2025 Consult note [facility] Medical Records Department [address] [place] [address] Anesthesia Postop Eval II 11/20/24 0952 MR#: [id number] Acct: [id number] Name: JARED RAYMOND Rep #:[id number] : 1945 79 From: Keo Burgos MD PCP: MARYAM Guerra Status:ADM IN Y Race: C Location: [place] [address] Anesthesia Postop Eval I Sum Postop Eval [...] MD Cosigner Signature: Date CC: ~ Signed [facility]04-22-2025 Procedure note [facility] Medical Records Department [address] [place] [address] Colonoscopy Report MR#: [id number] Acct: [id number] Name: JARED RAYMOND Rep #:[id number] : 1945 79 From: Ari Silvestre DO [...] three hemostatic clips were successfully placed. 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 There was no bleeding at the end [...] the colonic anastomosis. Clips were placed. 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 - The examined portion of the ileum was normal. - No specimens collected. Recommendation: - Return patient to [facility] for [facility] care. - Resume previous diet. - Continue present medications. - Repeat colonoscopy in 1 year to assess disease activity. Procedure Code(s): --- Professional --- 16391, Colonoscopy, flexible; with control of bleeding, any method 49810, 59, Colonoscopy, flexible; with directed submucosal injection(s), any substance CPT copyright 2021 [employer]. All rights reserved. The codes documented in this report are preliminary and upon automotive engineer review may be revised to meet current compliance requirements. Ari Silvestre DO 11/20/2024 7:56:55 AM This report has been signed electronically. Number of Addenda: 0 Note Initiated On: 11/19/2024 1:03 PM 11/20/24 0757 Date _ Ari Silvestre DO Cosigner Signature: Date (if indicated) CC: MARYAM Olson; Ari Silvestre DO ~ Date Dictated: 11/19/24 1303 Date Transcribed: Cad Intern: RF Signed [facility]04-22-2025 Procedure note [facility] Medical Records Department [address] [place] [address] Operative Report - CC Letter MR#: [id number] Acct: [id number] Name: SEGUNDOJARED L Rep #:[id number] : 1945 79 From: Ari Silvestre DO [...] the colonic anastomosis. Clips were placed. 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 - The examined portion of the ileum [...] ~ Date Dictated: 11/19/24 1303 Date Transcribed: Cad Intern: RF Signed [facility]04-21-2025 Progress note Author Neville Jang [facility] Note Date/Time November 19, 2024 6:2 0pm [facility] Medical Records Department [address] [place] [address] Progress Note - Hospitalist 11/19/24 1816 MR#: [id number] Acct: [id number] Name: JARED RAYMOND Rep #:[id number] : 1945 79 From: Neville Jang DO PCP: Mariela Olson COMMISSION SALES ASSOCIATE-C Status:ADM IN Location: [place] [address] Reason for Visit Reason for Visit: Diagnoses [...] or Injury Related Malnutrition Etiology related to "flu and diarrhea" w/ inadequate energy intake Signs/Symptoms as evidenced [...] 73.3 H, Lymph % (Auto) 14.2 L, Cherry % (Auto) 10.0, Eos % (Auto) 1.9, [...] 35 minutes Charges/Coding Visit Charges Inpatient E&M: 33577 Subs Hosp L2 11/19/24 1820 <Electronically signed by Neville Jang DO> Cosigner Signature (if applicable): CC: ~ Signed [facility] Work Phone: 1(122) 136-550304-21-2025 Progress note [facility] Medical Records Department [address] [place] [address] Progress Note - Hospitalist 11/19/24 181 MR#: [id number] Acct: [id number] Name: JARED RAYMOND Rep #:[id number] : 1945 79 From: Neville Jang DO PCP: Mariela Olson NP-C Status:ADM IN Location: [place] [address] Reason for Visit Reason for Visit: Diagnoses [...] or Injury Related Malnutrition Etiology related to "flu and diarrhea" w/ inadequate energy intake Signs/Symptoms as evidenced [...] 73.3 H, Lymph % (Auto) 14.2 L, Cherry % (Auto) 10.0, Eos % (Auto) 1.9, [...] 35 minutes Charges/Coding Visit Charges Inpatient E&M: 34296 [facility] Hosp L2 11/19/24 1820 Cosigner Signature (if applicable): CC: ~ Signed [facility]04-21-2025 Consult note Author Guerrero Miller [facility] Note Date/Time November 19, 2024 2:0 5pm [facility] Medical Records Department [address] [place] [address] Anesthesia Postop Eval I 11/19/24 1402 MR#: [id number] Acct: [id number] Name: JARED RAYMOND Rep #:[id number] : 1945 79 From: Guerrero Miller PCP: MARYAM Guerra Status:ADM IN Y Race: C Location: [place] [address] Anesthesia: Postop Eval I Current Vital Signs [...] document: Postop Eval 1 completed: Yes 11/19/24 1408 <Electronically signed by Guerrero Miller > Date _ Guerrero Richeyignbrant Signature: Date CC: ~ Signed [facility] Work Phone: 1(402) 956-323304-21-2025 Consult note Author Ari Silvestre [facility] Note Date/Time November 19, 2024 12: 58pm [facility] Medical Records Department [address] [place] [address] Consultation - GI 11/19/24 1256 MR#: [id number] Acct: [id number] Name: JARED RAYMOND Rep #:[id number] : 1945 79 From: Ari Silvestre DO PCP: MARYAM Guerra Status:ADM IN Location: [place] [address] HPI Consult Data Date of Consult: 11/19/24 [...] presents for evaluation. He originally presented to [facility] ED on 04/11/2024 with c/o [...] use of ivermectin for treatment. [facility] Medical History Diverticulosis Mediastinal lymphadenopathy [...] or Injury Related Malnutrition Etiology related to "flu and diarrhea" w/ inadequate energy intake Signs/Symptoms as evidenced [...] 73.3 H, Lymph % (Auto) 14.2 L, Cherry % (Auto) 10.0, Eos % (Auto) 1.9, [...] undergo colonoscopy. Charges/Coding Visit Charges Inpatient E&M: 16228 Init Hosp L3 11/19/24 7200 <Electronically signed by Ari Silvestre DO> Cosigner Signature (if applicable): CC: COMMISSION SALES ASSOCIATECatherine Olson; Dr. Kelvin Schrader MD~ Signed [facility] Work Phone: 1(897) 989-864104-21-2025 Consult note [facility] Medical Records Department [address] [place] [address] Anesthesia Postop Eval I 11/19/24 1402 MR#: [id number] Acct: [id number] Name: JARED RAYMOND Rep #:[id number] : 1945 79 From: Guerrero Miller PCP: MARYAM Guerra Status:ADM IN Y Race: C Location: [place] [address] Anesthesia: Postop Eval I Current Vital Signs [...] Yes 11/19/24 1405 > Date _ Guerrero Miller Cosigner Signature: Date CC: ~ Signed [facility]04-21-2025 Consult note Author Steven Ann [facility] Note Date/Time November 19, 2024 12: 03pm [facility] Medical Records Department [address] [place] [address] Pre-Anesthesia Evaluation 11/19/24 1202 MR#: [id number] Acct: [id number] Name: JARED RAYMOND Rep #:[id number] : 1945 79 From: Steven Ann MD PCP: ABDIAS GuerraC Status:ADM IN Y Race: C Location: [place] [address] ASA Classification* ASA Classification ASA Classification: 3 [...] Procedure(s): colonoscopy Anesthesia History Anesthesia History - investigation officer: Anesthesia History - investigation officer Hx Hospitalization Yes: 06/09/24 BIOPSY OF LIVER [...] take am of surgery PONV PONV - investigation officer: PONV - investigation officer Female HX of Motion Sickness HX of N/V After Surgery Non-Smoker Duration of Surgery greater than 60 minutes Number of Risk Factors PONV Score Height & Weight Height & Weight: Anesthesia: Height & Weight Height 5 ft 7.5 in 11/19/24 08:57 Weight: 68.946 kg 11/19/24 08:57 Body Mass Index (BMI) 23.4 11/19/24 08:57 Respiratory Assessment Respiratory Assessment - investigation officer: Respiratory Tract Infection Hx - investigation officer Hx Respiratory Tract Infection No 11/18/24 21:04 STOP Sleep Apnea STOP Sleep Apnea - investigation officer: STOP Sleep Apnea - investigation officer Hx Hypertension Yes 11/18/24 15:46 Hx Sleep [...] Tobacco Use History Tobacco Use History - investigation officer: Tobacco Use History - investigation officer Tobacco Use Cigarettes 01/25/23 14:01 Smoking Status Former smoker 11/18/24 17:39 Hx Tobacco Use Yes: Cigar 11/18/24 15:46 Years Smoking Packs Smoked per Day Smoking Cessation Date was Yes - quit smoking within 15 11/18/24 15:46 within the last 15 years years Hx Smoking Cessation Date 04/01/23 11/18/24 15:46 Hx Smoking Cessation Yes 11/18/24 15:46 Counseling Hematologic Medial History Hematologic Hx - investigation officer: 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 Hx of Blood Transfusion Yes 11/18/24 15:46 [...] confused, unrespo /Reproduction History /Reproductive History - investigation officer: /Reproductive Hx- investigation officer Hx Now No 11/18/24 21:04 Gestational Age [...] Steven Vela Signature: Date CC: ~ Signed [facility] Work Phone: 1(496) 182-650004-21-2025 Consult note [facility] Medical Records Department [address] [place] [address] Consultation - GI 11/19/24 1256 MR#: [id number] Acct: [id number] Name: JARED RAYMOND Rep #:[id number] : 1945 79 From: Ari Friend DO PCP: ABDIAS GuerraC Status:ADM IN Location: [facility] BH527-6 HPI Consult Data Date of Consult: 11/19/24 [...] presents for evaluation. He originally presented to [facility] ED on 04/11/2024 with c/o [...] use of ivermectin for treatment. [facility] Medical History Diverticulosis Mediastinal lymphadenopathy [...] or Injury Related Malnutrition Etiology related to "flu and diarrhea" w/ inadequate energy intake Signs/Symptoms as evidenced [...] 73.3 H, Lymph % (Auto) 14.2 L, Cherry % (Auto) 10.0, Eos % (Auto) 1.9, [...] undergo colonoscopy. Charges/Coding Visit Charges Inpatient E&M: 01483 Init Hosp L3 11/19/24 7584 Cosigner Signature (if applicable): CC: MARYAM Olson; Dr. Kelvin Schrader MD~ Signed [facility]04-21-2025 Consult note [facility] Medical Records Department [address] [place] [address] Pre-Anesthesia Evaluation 11/19/24 1202 MR#: [id number] Acct: [id number] Name: AJRED RAYMOND Rep #:[id number] : 1945 79 From: Steven Ann MD PCP: MARYAM Guerra Status:ADM IN Y Race: C Location: [place] [address] ASA Classification* ASA Classification ASA Classification: 3 [...] Procedure(s): colonoscopy Anesthesia History Anesthesia History - investigation officer: Anesthesia History - investigation officer Hx Hospitalization Yes: 06/09/24 BIOPSY OF LIVER [...] take am of surgery PONV PONV - investigation officer: PONV - investigation officer Female HX of Motion Sickness HX of N/V After Surgery Non-Smoker Duration of Surgery greater than 60 minutes Number of Risk Factors PONV Score Height & Weight Height & Weight: Anesthesia: Height & Weight Height 5 ft 7.5 in 11/19/24 08:57 Weight: 68.946 kg 11/19/24 08:57 Body Mass Index (BMI) 23.4 11/19/24 08:57 Respiratory Assessment Respiratory Assessment - investigation officer: Respiratory Tract Infection Hx - investigation officer Hx Respiratory Tract Infection No 11/18/24 21:04 STOP Sleep Apnea STOP Sleep Apnea - investigation officer: STOP Sleep Apnea - investigation officer Hx Hypertension Yes 11/18/24 15:46 Hx Sleep [...] Tobacco Use History Tobacco Use History - investigation officer: Tobacco Use History - investigation officer Tobacco Use Cigarettes 01/25/23 14:01 Smoking Status Former smoker 11/18/24 17:39 Hx Tobacco Use Yes: Cigar 11/18/24 15:46 Years Smoking Packs Smoked per Day Smoking Cessation Date was Yes - quit smoking within 15 11/18/24 15:46 within the last 15 years years Hx Smoking Cessation Date 04/01/23 11/18/24 15:46 Hx Smoking Cessation Yes 11/18/24 15:46 Counseling Hematologic Medial History Hematologic Hx - investigation officer: 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 Hx of Blood Transfusion Yes 11/18/24 15:46 [...] confused, unrespo /Reproduction History /Reproductive History - investigation officer: /Reproductive Hx- investigation officer Hx Now No 11/18/24 21:04 Gestational Age [...] Steven Vela Signature: Date CC: ~ Signed [facility]04-20-2025 History and physical note Author Kelvin Schrader [facility] Note Date/Time November 18, 2024 4:0 6pm [facility] Medical Records Department [address] [place] [address] H&P Exam - Hospitalist 11/18/24 1335 MR#: [id number] Acct: [id number] Name: JARED RAYMOND Rep #:[id number] : 1945 79 From: Kelvin rojas MD PCP: MARYAM Guerra Status:ADM IN Location: [facility] RU002-6 HPI - General General Date of Admission: [...] possibility of proceeding with chemotherapy. [facility] Medical History Diverticulosis Mediastinal lymphadenopathy [...] 71.9 H, Lymph % (Auto) 14.4 L, Cherry % (Auto) 11.2 H, Eos % (Auto) [...] to the large mesenteric mass. Reading Location: [id number] Assessment & Plan Assessment/Plan (1) GI bleed: [...] Multi Select Codes Visit Charges Visit Charges: 04628 Init Hosp L2 Hospitalists' Procedures Procedures: 80582 Advncd Care Plan 30 Min 11/18/24 6548 <Electronically signed by Kelvin Schrader MD> Cosigner Signature (if applicable): CC: MARYAM Olson; Dr. Kelvin Schrader MD~ Signed [facility] Work Phone: [phone] 722-187904-20-2025 Discharge summary Author Radha Damon [facility] Note Date/Time November 18, 2024 2:5 3pm [facility] Medical Records Department [address] [place] [address] Emergency Department Summary 11/18/24 MR#: [id number] Acct: [id number] Name: JARED RAYMOND Rep #:[id number] : 1945 79 From: Radha [place] PCP: MARYAM Guerra Status:ADM IN Location: [facility] TP313-7 HPI <ONDINA Govea - Last Filed: 11/18/24 [...] any fevers, chills, or vomiting. [facility] <ONDINA Govea - Last Filed: 11/18/24 14:05> [facility] Medical History Diverticulosis Mediastinal lymphadenopathy [...] lesions noted and no wounds <Dr. Lazaro hSarp MD - Last Filed: 11/18/24 14:53> Physical Exam Const Vital Signs: 11/18/24 09:56 11/18/24 12:00 Temperature 97.8 F Temperature Source Oral Pulse Rate 76 63 Respiratory Rate 16 17 Blood Pressure 156/83 H 185/73 H Blood Pressure Mean 107 110 Pulse Ox 100 98 Oxygen Delivery Method Room Air MDM <ONDINA Govea - Last Filed: 11/18/24 14:05> [facility] MDM Narrative Medical decision making narrative: [...] 71.9 H Lymph % (Auto) 14.4 L Cherry % (Auto) 11.2 H Eos % (Auto) [...] to the large mesenteric mass. Reading Location: [id number] <Dr. Lazaro Sharp MD - Last Filed: 11/18/24 14:53> [facility] MDM Narrative Medical decision making narrative: [...] 71.9 H Lymph % (Auto) 14.4 L Cherry % (Auto) 11.2 H Eos % (Auto) [...] to the large mesenteric mass. Reading Location: [id number] CT of the abdomen pelvis was reviewed [...] made aware of patient and admit to [facility]) Procedures <Dr. Lazaro Sharp MD - [...] of hypertension Disposition Disposition: Acute Care Hospital [facility] What to do if you have Problems For any increased pain, shortness of breath, bleeding, nausea or vomiting, chest pain, or any unexpected problems, contact your Primary Care Provider. Call [facility] ([phone]) or report to the closest Emergency Room. Call 911 if necessary. 11/18/24 1405 <Electronically signed by Radha [place]> Cosigner Signature (if applicable): 11/18/24 1453 <Electronically signed by Lazaro Sharp MD> CC: MARYAM Olson ~ Signed [facility] Work Phone: 1([phone] 139-753704-20-2025 History and physical note [facility] Medical Records Department [address] [place] [address] H&P Exam - Hospitalist 11/18/24 1335 MR#: [id number] Acct: [id number] Name: JARED RAYMOND Rep #:[id number] : 1945 79 From: Kelvin rojas MD PCP: MARYAM Guerra Status:ADM IN Location: [facility] MY862-8 HPI - General General Date of Admission: [...] possibility of proceeding with chemotherapy. [facility] Medical History Diverticulosis Mediastinal lymphadenopathy [...] 71.9 H, Lymph % (Auto) 14.4 L, Cherry % (Auto) 11.2 H, Eos % (Auto) [...] to the large mesenteric mass. Reading Location: [facility] Assessment & Plan Assessment/Plan (1) GI bleed: [...] Multi Select Codes Visit Charges Visit Charges: 53467 Init Hosp L2 Hospitalists' Procedures Procedures: 29511 Advncd Care Plan 30 Min 11/18/24 1606 Cosigner Signature (if applicable): CC: MARYAM Olson; Dr. Kelvin Schrader MD~ Signed [facility]04-20-2025 Discharge summary [facility] Medical Records Department [address] [place] [address] Emergency Department Summary 11/18/24 MR#: [id number] Acct: [id number] Name: JARED RAYMOND Rep #:[id number] : 1945 79 From: Radha NJ PCP: MARYAM Guerra Status:ADM IN Location: MI3 YG571-4 HPI HPI - GI History of Present [...] denies a ny fevers, chills, or vomiting. [facility] Medical History Diverticulosis Mediastinal lymphadenopathy Colon [...] 71.9 H Lymph % (Auto) 14.4 L Cherry % (Auto) 11.2 H Eos % (Auto) [...] to the large mesenteric mass. Reading Location: [id number] MDM MDM Narrative Medical decision making narrative: [...] 71.9 H Lymph % (Auto) 14.4 L Cherry % (Auto) 11.2 H Eos % (Auto) [...] to the large mesenteric mass. Reading Location: [facility] CT of the abdomen pelvis was reviewed [...] made aware of patient and admit to [facility]) Procedures Other Procedures Procedure(s): Anoscopy was [...] of hypertension Disposition Disposition: Acute Care Hospital [facility] What to do if you have Problems For any increased pain, shortness of breath, bleeding, nausea or vomiting, chest pain, or any unexpected problems, contact your Primary Care Provider. Call [facility] ([phone]) or report to the closest Emergency Room. Call 911 if necessary. 11/18/24 140 Cosigner Signature (if applicable): 11/18/24 1453 CC: MARYAM Olson ~ Signed [facility]04-20-2025 Discharge summary Author Radha Damon [facility] Note Date/Time November 18, 2024 2:5 3pm [facility] Medical Records Department [address] [place] [address] Emergency Department Summary 11/18/24 MR#: [id number] Acct: [id number] Name: JARED RAYMOND Rep #:[id number] : 1945 79 From: Radha [place] PCP: MARYAM Guerra Status:ADM IN Location: [facility] HB931-7 HPI <ONDINA Govea - Last Filed: 11/18/24 [...] - Last Filed: 11/18/24 14:05> [facility] Medical History Diverticulosis Mediastinal lymphadenopathy [...] <ONDINA Govea - Last Filed: 11/18/24 14:05> [facility] MDM Narrative Medical decision making narrative: [...] 71.9 H Lymph % (Auto) 14.4 L Cherry % (Auto) 11.2 H Eos % (Auto) [...] to the large mesenteric mass. Reading Location: [id number] <Dr. Lazaro Sharp MD - Last Filed: 11/18/24 14:53> [facility] Narrative Medical decision making narrative: ulceration at [...] 71.9 H Lymph % (Auto) 14.4 L Cherry % (Auto) 11.2 H Eos % (Auto) [...] to the large mesenteric mass. Reading Location: [facility] CT of the abdomen pelvis was reviewed [...] made aware of patient and admit to [facility]) Procedures <Dr. Lazaro Sharp MD - [...] of hypertension Disposition Disposition: Acute Care Hospital [facility] What to do if you have Problems For any increased pain, shortness of breath, bleeding, nausea or vomiting, chest pain, or any unexpected problems, contact your Primary Care Provider. Call [facility] ([phone]) or report to the closest Emergency Room. Call 911 if necessary. 11/18/24 1405 <Electronically signed by Radha [place]> Cosigner Signature (if applicable): 11/18/24 1453 <Electronically signed by Lazaro Sharp MD> CC: MARYAM Olson ~ Signed [facility] Work Phone: 1(515) 705-481904-20-2025 Radiology Diagnostic study note [facility] Imaging Services [address] [place] [address] Abdomen/Pelvis W IV Cont ONLY MR#: [id number] Acct: [id number] Name: JARED RAYMOND Rep #: [id number] : 1945 M 79 From: Vanessa Rosado MD PCP: Mariela Olson, COMMISS[employer] SALES [employer]OCIATE-C Status: REG ER Study:Abdomen/Pelvis W IV Cont ONLY Date of E xam: 11/18/24 Exam# [id number] Ordering Dr: Radha Sharp MD PROCEDURE: ABDOMEN/PELVIS [...] to the large mesenteric mass. Reading Location: [facility] CC: MARYAM Olson; Dr. Lazaro Sharp MD ~ Cad Intern: Signed [facility]04-09-2025 Discharge summary [facility] Medical Records Department [address] [place] [address] Discharge Summary 11/07/24 1655 MR#: [id number] Acct: [id number] Name: JARED RAYMOND Rep #:[id number] : 1945 79 From: Stevie Harrington DO PCP: MARYAM Guerra Status:ADM IN Location: [place] [id number]- 1 Providers Date of Admission: 11/06/24 Primary Care Physician: MARYAM Guerra Consultations 11/06/24 03:28 Consult: Gastroenterology Routine Consulting Provider: [facility] Reason for Consult: LGIB with BRBPR; [...] 70.4 H, Lymph % (Auto) 14.8 L, Cherry % (Auto) 12.5 H, Eos % (Auto) [...] Self Care Charges/Coding Visit Charges Inpatient E&M: 93981 Disch Hosp >30min 11/07/24 1707 Cosigner Signature (if applicable): CC: ABDIASC Mariela Olson; Dr. Stevie Harrington DO~ Signed [facility]04-09-20[facility] Progress note Author Steviepamella Harrington [facility] Note Date/Time November 07, 2024 12:2 7pm [facility] Medical Records Department [address] [place] [address] Progress Note - Hospitalist 11/07/24 0727 MR#: [id number] Acct: [id number] Name: SEGUNDOJARED Ravi Rep #:[id number] : 1945 79 From: Stevie Harrington DO PCP: MARYAM Guerra Status:ADM IN Location: [place] [address] Reason for Visit Reason for Visit: Diagnoses [...] abdominal pain that has been ongoing for "eons". No further hematochezia. Objective Data Objective Data [...] 78.1 H, Lymph % (Auto) 9.1 L, Cherry % (Auto) 11.9 H, Eos % (Auto) [...] 70.4 H, Lymph % (Auto) 14.8 L, Cherry % (Auto) 12.5 H, Eos % (Auto) [...] prophylaxis: SCDs. Charges/Coding Visit Charges Inpatient E&M: 27731 Subs Hosp L2 11/07/24 1227 <Electronically signed by Stevie Harrington DO> Cosigner Signature (if applicable): CC: ~ Signed [facility] Work Phone: 1(310) 419-352704-09-2025 Progress note [facility] Medical Records Department [address] [place] [address] Progress Note - Hospitalist 11/07/24726 MR#: [id number] Acct: [id number] Name: JARED RAYMOND Rep #:[id number] : 1945 79 From: Stevie Harrington DO PCP: MARYAM Guerra Status:ADM IN Location: [place] [address] Reason for Visit Reason for Visit: Diagnoses [...] abdominal pain that has been ongoing for "eons". No further hematochezia. Objective Data Objective Data [...] 78.1 H, Lymph % (Auto) 9.1 L, Cherry % (Auto) 11.9 H, Eos % (Auto) [...] 70.4 H, Lymph % (Auto) 14.8 L, Cherry % (Auto) 12.5 H, Eos % (Auto) [...] prophylaxis: SCDs. Charges/Coding Visit Charges Inpatient E&M: 42279 [facility] Hosp L2 11/07/24 1227 Cosigner Signature (if applicable): CC: ~ Signed [facility]04-08-2025 Consult note Author Keo Burgos [facility] Note Date/Time November 06, 2024 8:40 pm [facility] Medical Records Department [address] [place] [address] Anesthesia Postop Eval II 11/06/242038 MR#: [id number] Acct: [id number] Name: JARED RAYMOND Rep #:[id number] : 1945 79 From: Keo Burgos MD PCP: MARYAM Guerra Status:ADM IN Y Race: C Location: [place] [address] 3-1 Anesthesia Postop Eval I Sum Postop [...] MD Cosigner Signature: Date CC: ~ Signed [facility] Work Phone: 1(206) 966-320804-08-2025 Consult note Author Keo Burgos [facility] Note Date/Time November 06, 2024 8:00 pm [facility] Medical Records Department [address] [place] [address] Anesthesia Postop Eval I 11/06/241948 MR#: [id number] Acct: [id number] Name: JARED RAYMOND Rep #:[id number] : 1945 79 From: Keo Burgos MD PCP: MARYAM Guerra Status:ADM IN Y Race: C Location: [place] [address] 3 Anesthesia: Postop Eval I Current Vital Signs [...] MD Cosigner Signature: Date CC: ~ Signed [facility] Work Phone: 1(155) 564-667704-08-2025 Consult note Author Keo [facility] Note Date/Time November 06, 2024 7:07 pm [facility] Medical Records Department [address] [place] [address] Pre-Anesthesia Evaluation 11/06/24 1859 MR#: [id number] Acct: [id number] Name: JARED RAYMOND Rep #:[id number] : 1945 79 From: Keo Burgos MD PCP: MARYAM Guerra Status:ADM IN Y Race: C Location: [place] [address] 3 ASA Classification* ASA Classification ASA Classification: [...] Flexible sigmoidoscopy Anesthesia History Anesthesia History - investigation officer: Anesthesia History - investigation officer Hx Hospitalization Yes: 06/09/24 BIOPSY OF LIVER [...] sips of water?: Yes PONV PONV - investigation officer: PONV - investigation officer Female HX of Motion Sickness HX of N/V After Surgery Non-Smoker Duration of Surgery greater than 60 minutes Number of Risk Factors PONV Score Height & Weight Height & Weight: Anesthesia: Height & Weight Height 5 ft 7 in 11/06/24 09:29 Weight: 72 kg 11/06/24 09:29 Body Mass Index (BMI) 24.8 11/06/24 05:23 Respiratory Assessment Respiratory Assessment - investigation officer: Respiratory Tract Infection Hx - investigation officer Hx Respiratory Tract Infection Yes: Patient is recovering 06/22/24 12:11 from a cold/sinus congestion STOP Sleep Apnea STOP Sleep Apnea - investigation officer: STOP Sleep Apnea - investigation officer Hx Hypertension Yes 11/06/24 13:19 Hx Sleep [...] Tobacco Use History Tobacco Use History - investigation officer: Tobacco Use History - investigation officer Tobacco Use Cigarettes 01/25/23 14:01 Smoking Status Former smoker 11/06/24 13:51 Hx Tobacco Use Yes: Cigar 11/06/24 03:38 Years Smoking Packs Smoked per Day Smoking Cessation Date was Yes - quit smoking within 15 11/06/24 03:38 within the last 15 years years Hx Smoking Cessation Date 04/01/23 11/06/24 03:38 Hx Smoking Cessation Yes 11/06/24 03:38 Counseling Hematologic Medial History Hematologic Hx - investigation officer: 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 Hx of Blood Transfusion Yes 11/06/24 03:38 [...] confused, unrespo /Reproduction History /Reproductive History - investigation officer: /Reproductive Hx- investigation officer Hx Now Gestational Age (in weeks): EDC: [...] MD Cosigner Signature: Date CC: ~ Signed [facility] Work Phone: 1(768) 850-206804-08-2025 Consult note Author Ari Friend [facility] Note Date/Time November 06, 2024 6:59 pm [facility] Medical Records Department [facility] [place] [address] Consultation - GI 11/06/24 1854 MR#: [id number] Acct: [id number] Name: JARED RAYMOND Rep #:[id number] : 1945 79 From: Ari Silvestre DO PCP: MARYAM Guerra Status:ADM [facility] H[facility] Consult Data Date of Consult: [...] presents for evaluation. He originally presented to [facility] ED on 04/11/2024 with c/o [...] stable. Pathologic staging pT4 pN2b. [facility] Medical History Encounter for education [...] % (Auto) Cancelled, Lymph % (Auto) Cancelled, Cherry % (Auto) Cancelled, Eos % (Auto) Cancelled, [...] Cancelled, Toxic Vacuolation Cancelled, Dohle Bodies Cancelled, Edepa Rods Cancelled, Platelet Estimate Cancelled, Plt Morphology Comment Cancelled, RBC Morphology Cancelled 11/05/24 22:42: RBC Morphology Cancelled, Polychromasia Cancelled, HypochromasiaCancelled, Basophilic Stippling Cancelled, Anisocytosis Cancelled, Microcytosis Cancelled, Macrocytosis Cancelled, Spherocytes Cancelled, Sickle Cells Cancelled, Target Cells Cancelled, Tear Drop Cells Cancelled, Ovalocytes Cancelled, Stomatocytes Cancelled, Scott-Opheim Bodies Cancelled, Dawson Cells Cancelled, Bite Cells Cancelled, Crenated Cell [...] 76.8 H, Lymph % (Auto) 12.9 L, Cherry % (Auto) 8.9, Eos % (Auto) 0.6, [...] 74.5 H, Lymph % (Auto) 13.7 L, Cherry % (Auto) 9.8, Eos % (Auto) 1.4, [...] 78.1 H, Lymph % (Auto) 9.1 L, Cherry % (Auto) 11.9 H, Eos % (Auto) [...] stable findings as described above. Reading [facility] Assessment & Plan Assessment/Plan (1) GI (gastrointestinal [...] flexible sigmoidoscopy. Charges/Coding Visit Charges Inpatient E&M: 07523 Init Hosp L3 11/06/24 185 <Electronically signed by Ari Silvestre DO> Cosigner Signature (if applicable): CC: MARYAM Olson~ Signed [facility] Work Phone: 1(743) 433-706904-08-2025 Consult note [facility] Medical Records Department [address] [place] [address] Anesthesia Postop Eval II 11/06/242038 MR#: [id number] Acct: [id number] Name: JARED RAYMOND Rep #:[id number] : 1945 79 From: Keo Burgos MD PCP: MARYAM Guerra Status:ADM IN Y Race: C Location: [place] [address] 3-1 Anesthesia Postop Eval I Sum Postop [...] MD Cosigner Signature: Date CC: ~ Signed [facility]04-08-2025 Consult note [facility] Medical Records Department [address] [place] [address] Anesthesia Postop Eval I 11/06/241948 MR#: [id number] Acct: [id number] Name: JARED RAYMOND Rep #:[id number] : 1945 79 From: Keo Burgos MD PCP: MARYAM Guerra Status:ADM IN Y Race: C Location: [place] [address] 09-29 Anesthesia: Postop Eval I Current Vital Signs [...] MD Cosigner Signature: Date CC: ~ Signed [facility]04-08-2025 Procedure note [facility] Medical Records Department [address] [place] [address] Colonoscopy Report MR#: [id number] Acct: [id number] Name: JARED RAYMOND Rep #:[id number] : 1945 79 From: Ari Silvestre DO [...] digital rectal examinations were normal. Hematin (altered blood/xzcbfy-ovntca-zorj material) was found in the entire colon. There was evidence of a prior end-to-side ileo-colonic anastomosis in the ascending colon. This was patent and was characterized by ulceration and an intact staple line. The anastomosis was traversed. To stop active bleeding, one hemostatic clip was successfully placed. 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 There was no bleeding at the end [...] was poor. Procedure Code(s): --- Professional --- 45067, Colonoscopy, flexible; with control of bleeding, any method CPT copyright 2021 [employer]. All rights reserved. The codes documented in this report are preliminary and upon automotive engineer review may be revised to meet current compliance requirements. Ari Silvestre DO 11/06/2024 7:48:14 PM This report has been signed electronically. Number of Addenda: 0 Note Initiated On: 11/06/2024 6:51 PM 11/06/241947 Date _ Ari Silvestre DO Cosigner Signature: Date (if indicated) CC: COMMISSION SALES ASSOCIATE-C Mariela Olson; Ari Silvestre DO ~ Date Dictated: 11/06/241850 Date Transcribed: Cad Intern: RF Signed [facility]04-08-2025 Consult note [facility] Medical Records Department [address] [place] [address] Pre-Anesthesia Evaluation 11/06/241858 MR#: [id number] Acct: [id number] Name: JARED RAYMOND Rep #:[id number] : 1945 79 From: Keo Burgos MD PCP: MARYAM Guerra Status:ADM IN Y Race: C Location: [place] [address] 3-1 ASA Classification* ASA Classification ASA Classification: [...] Flexible sigmoidoscopy Anesthesia History Anesthesia History - investigation officer: Anesthesia History - investigation officer Hx Hospitalization Yes: 06/09/24 BIOPSY OF LIVER [...] sips of water?: Yes PONV PONV - investigation officer: PONV - investigation officer Female HX of Motion Sickness HX of N/V After Surgery Non-Smoker Duration of Surgery greater than 60 minutes Number of Risk Factors PONV Score Height & Weight Height & Weight: Anesthesia: Height & Weight Height 5 ft 7 in 11/06/24 09:29 Weight: 72 kg 11/06/24 09:29 Body Mass Index (BMI) 24.8 11/06/24 05:23 Respiratory Assessment Respiratory Assessment - investigation officer: Respiratory Tract Infection Hx - investigation officer Hx Respiratory Tract Infection Yes: Patient is recovering 06/22/24 12:11 from a cold/sinus congestion STOP Sleep Apnea STOP Sleep Apnea - investigation officer: STOP Sleep Apnea - investigation officer Hx Hypertension Yes 11/06/24 13:19 Hx Sleep [...] Tobacco Use History Tobacco Use History - investigation officer: Tobacco Use History - investigation officer Tobacco Use Cigarettes 01/25/23 14:01 Smoking Status Former smoker 11/06/24 13:51 Hx Tobacco Use Yes: Cigar 11/06/24 03:38 Years Smoking Packs Smoked per Day Smoking Cessation Date was Yes - quit smoking within 15 11/06/24 03:38 within the last 15 years years Hx Smoking Cessation Date 04/01/23 11/06/24 03:38 Hx Smoking Cessation Yes 11/06/24 03:38 Counseling Hematologic Medial History Hematologic Hx - investigation officer: 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 Hx of Blood Transfusion Yes 11/06/24 03:38 [...] confused, unrespo /Reproduction History /Reproductive History - investigation officer: /Reproductive Hx- investigation officer Hx Now Gestational Age (in weeks): EDC: [...] MD Cosigner Signature: Date CC: ~ Signed [facility]04-08-2025 Consult note [facility] Medical Records Department [address] [place] [address] Consultation - GI 11/06/24 1854 MR#: [id number] Acct: [id number] Name: JARED RAYMOND Rep #:[id number] : 1945 79 From: Ari Friend DO PCP: MARYAM Guerra Status:ADM IN Location: [place] [id number]- 1 HPI Consult Data Date of Consult: [...] presents for evaluation. He originally presented to [facility] ED on 04/11/2024 with c/o [...] stable. Pathologic staging pT4 pN2b. [facility] Medical History Encounter for education [...] % (Auto) Cancelled, Lymph % (Auto) Cancelled, Cherry % (Auto) Cancelled, Eos % (Auto) Cancelled, [...] Drop Cells Cancelled, Ovalocytes Cancelled, Stomatocytes Cancelled, Scott-Opheim Bodies Cancelled, Dawson Cells Cancelled, Bite Cells Cancelled, Crenated Cell [...] 76.8 H, Lymph % (Auto) 12.9 L, Cherry % (Auto) 8.9, Eos % (Auto) 0.6, [...] 74.5 H, Lymph % (Auto) 13.7 L, Cherry % (Auto) 9.8, Eos % (Auto) 1.4, [...] 78.1 H, Lymph % (Auto) 9.1 L, Cherry % (Auto) 11.9 H, Eos % (Auto) 0.3, Baso % (Auto) 0.3, Absolute Neuts (auto) 5.0, Absolute Lymphs (auto) 0.59 L, Nucleated RBC % 0 Micro: Microbiology 11/06/24 06:10 Stool Stool Lactoferrin - Final 11/06/24 06:10 Stool Enteric Bacteriology - Final 11/06/24 06:10 Stool Clostridioides difficile (PCR) - Final 11/05/24 23:44 Stool Stool Occult Blood (EDINOSN) - Final Occult Blood Positive Imaging Radiology [...] stable findings as described above. Reading Location[facility] Assessment & Plan Assessment/Plan (1) GI (gastrointestinal [...] s igmoidoscopy. Charges/Coding Visit Charges Inpatient E&M: 14902 Init Hosp L3 11/06/24 4731 Cosigner Signature (if applicable): CC: MARYAM Olson~ Signed [facility]04-08-2025 Progress note Author Stevie Harrington [facility] Note Date/Time November 06, 2024 2:48 pm [facility] Medical Records Department [address] [place] [address] Progress Note - Hospitalist 11/06/24 0727 MR#: [id number] Acct: [id number] Name: JARED RAYMOND Ravi Rep #:[id number] : 1945 79 From: Stevie Harrington DO PCP: MARYAM Guerra Status:ADM IN Location: [place] [address] Reason for Visit Reason for Visit: Diagnoses [...] % (Auto) Cancelled, Lymph % (Auto) Cancelled, Cherry % (Auto) Cancelled, Eos % (Auto) Cancelled, [...] Drop Cells Cancelled, Ovalocytes Cancelled, Stomatocytes Cancelled, Scott-Opheim Bodies Cancelled, Dawson Cells Cancelled, Bite Cells Cancelled, Crenated Cell [...] 76.8 H, Lymph % (Auto) 12.9 L, Cherry % (Auto) 8.9, Eos % (Auto) 0.6, [...] 74.5 H, Lymph % (Auto) 13.7 L, Cherry % (Auto) 9.8, Eos % (Auto) 1.4, [...] stable findings as described above. Reading Location[facility] Physical Exam Const alert and no apparent [...] at bedside. Charges/Coding Visit Charges Inpatient E&M: 57749 Subs Hosp L2 11/06/24 1449 <Electronically signed by Stevie Harrington DO> Cosigner Signature (if applicable): CC: ~ Signed [facility] Work Phone: 1(923) 155-672204-08-2025 Progress note [facility] Medical Records Department [address] [place] [address] Progress Note - Hospitalist 11/06/24 0727 MR#: [id number] Acct: [id number] Name: JARED RAYMOND Rep #:[id number] : 1945 79 From: Stevie Harrington DO PCP: MARYAM Guerra Status:ADM IN Location: [place] [address] Reason for Visit Reason for Visit: Diagnoses [...] % (Auto) Cancelled, Lymph % (Auto) Cancelled, Cherry % (Auto) Cancelled, Eos % (Auto) Cancelled, [...] Drop Cells Cancelled, Ovalocytes Cancelled, Stomatocytes Cancelled, Scott-Opheim Bodies Cancelled, Tani Cells Cancelled, Bite Cells [...] 76.8 H, Lymph % (Auto) 12.9 L, Cherry % (Auto) 8.9, Eos % (Auto) 0.6, [...] 74.5 H, Lymph % (Auto) 13.7 L, Cherry % (Auto) 9.8, Eos % (Auto) 1.4, [...] at bedside. Charges/Coding Visit Charges Inpatient E&M: 11401 Subs Hosp L2 11/06/24 0686 Cosigner Signature (if applicable): CC: ~ Signed [facility]04-08-2025 History and physical note Author Darrel Sanders [facility] Note Date/Time November 06, 2024 6:56 am [facility] Medical Records Department [address] [place] [address] H&P Exam - Hospitalist 11/06/24 0145 MR#: [id number] Acct: [id number] Name: JARED RAYMOND Rep #:[id number] : 1945 79 From: Darrel Qureshi DO PCP: MARYAM Guerra Status:ADM IN Location: [address] 1 HPI - General General Date [...] of syncopal episodes who now returns to [facility] ER complaining of watery diarrhea [...] to extend beyond 2 midnights. [facility] Medical History (Updated 11/06/24 @ 06:[address] Darrel Carpenter, ) Encounter for education Pre-op testing Wears [...] % (Auto) Cancelled, Lymph % (Auto) Cancelled, Cherry % (Auto) Cancelled, Eos % (Auto) Cancelled, [...] Drop Cells Cancelled, Ovalocytes Cancelled, Stomatocytes Cancelled, Scott-Opheim Bodies Cancelled, Tani Cells Cancelled, Bite Cells [...] 76.8 H, Lymph % (Auto) 12.9 L, Cherry % (Auto) 8.9, Eos % (Auto) 0.6, [...] 75 minutes. Charges/Coding Visit Charges Inpatient E&M: 14850 Init Hosp L3 11/06/24 0656 <Electronically signed by Darrel Carpenter DO> Cosigner Signature (if applicable): CC: MARYAM Olson; Dr. Darrel Carpenter DO~ Signed [facility] Work Phone: 1(486) 802-891804-08-2025 Discharge summary Author Harrison Linares [facility] Note Date/Time November 06, 2024 5:46 am [facility] Medical Records Department [address] [place] [address] Emergency Department Summary 11/06/24 MR#: [id number] Acct: [id number] Name: JARED RAYMOND Rep #:[id number] : 1945 79 From: Harrison Linares DO PCP: MARYAM Guerra Status:ADM IN Location: [place] [address] HPI History of Present Illness Chief Complaint: [...] blood per rectum he presents for evaluation. [facility] Medical History (Updated 11/06/24 [...] I did discuss the case with his learning disabilities teacher Dr. Silvestre. He recommends that with his [...] H Lymph % (Auto) Cancelled 12.9 L Cherry % (Auto) Cancelled 8.9 Eos % (Auto) [...] Drop Cells Cancelled Ovalocytes Cancelled Stomatocytes Cancelled Scott-Opheim Bodies Cancelled Tani Cells Cancelled Bite Cells [...] stable findings as described above. Reading Location[facility] Management Discussion w/another healthcare provider: Hospitalist and Device Engineer Discharge Plan Dx/Rx/DC Orders Clinical Impression: GI (gastrointestinal bleed), Benign essential hypertension, Colon cancer, Hyponatremia, Diverticulosis Disposition Disposition: Acute Care Hospital [facility] Discharge Date/Time: 11/06/24 03:21 What to do if you have Problems For any increased pain, shortness of breath, bleeding, nausea or vomiting, chestpain, or any unexpected problems, contact your Primary Care Provider. Call [facility] ([phone]) or report to the closest Emergency Room. Call 911 if necessary. 11/06/24 0546 <Electronically signed by Harrison Linares DO> Cosigner Signature (if applicable): CC: MARYAM Olson ~ Signed [facility] Work Phone: 1(228) 829-189004-08-2025 History and physical note [facility] Medical Records Department [address] [place] [address] H&P Exam - Hospitalist 11/06/24 0145 MR#: [id number] Acct: [id number] Name: JARED RAYMOND Rep #:[id number] : 1945 79 From: Darrel Qureshi DO PCP: MARYAM Guerra Status:ADM IN Location: [facility] [id number] [facility] - General General Date of Admission: 11/06/24 [...] of syncopal episodes who now returns to [facility] ER complaining of watery diarrhea [...] to extend beyond 2 midnights. [facility] Medical History (Updated 11/06/24 @ [...] % (Auto) Cancelled, Lymph % (Auto) Cancelled, Cherry % (Auto) Cancelled, Eos % (Auto) Cancelled, [...] Drop Cells Cancelled, Ovalocytes Cancelled, Stomatocytes Cancelled, Scott-Opheim Bodies Cancelled, Tani Cells Cancelled, Bite Cells [...] 76.8 H, Lymph % (Auto) 12.9 L, Cherry % (Auto) 8.9, Eos % (Auto) 0.6, [...] 75 minutes. Charges/Coding Visit Charges Inpatient E&M: 71315 Init Hosp L3 11/06/24 0656 Cosigner Signature (if applicable): CC: MARYAM Olson; Dr. Darrel Carpenter DO~ Signed [facility]04-08-2025 Discharge summary [facility] Medical Records Department [address] [place] [address] Emergency Department Summary 11/06/24 MR#: [id number] Acct: [id number] Name: JARED RAYMOND Rep #:[id number] : 1945 79 From: Harrison Linares DO PCP: MARYAM Guerra Status:ADM IN Location: [address] History of Present Illness Chief Complaint: [...] blood per rectum he presents for evaluation. [facility] Medical History (Updated 11/06/24 [...] I did discuss the case with his learning disabilities teacher Dr. Silvestre. He recommends that with his [...] H Lymph % (Auto) Cancelled 12.9 L Cherry % (Auto) Cancelled 8.9 Eos % (Auto) [...] Drop Cells Cancelled Ovalocytes Cancelled Stomatocytes Cancelled Scott-Opheim Bodies Cancelled Tani Cells Cancelled Bite Cells [...] Management Discussion w/another healthcare provider: Hospitalist and Device Engineer Discharge Plan Dx/Rx/DC Orders Clinical Impression: GI (gastrointestinal bleed), Benign essential hypertension, Colon cancer, Hyponatremia, Diverticulosis Disposition Disposition: Acute Care Hospital [facility] Discharge Date/Time: 11/06/24 03:21 What to do if you have Problems For any increased pain, shortness of breath, bleeding, nausea or vomiting, chestpain, or any unexpected problems, contact your Primary Care Provider. Call [facility] ([phone]) or report tothe closest Emergency Room. Call 911 if necessary. 11/06/24 7862 Cosigner Signature (if applicable): CC: COMMISSION SALES ASSOCIATE-C Mariela Shahram ~ Signed [facility]04-07-2025 Radiology Diagnostic study note [facility] Imaging Services [address] [place], [place] [address] CTA Abd/Pelvis W/WO Contrast MR#: [id number] Acct: [id number] Name: JARED RAYMOND Rep #: [id number] : 1945 M 79 From: Shakira Ramsey MD PCP: MARYAM Guerra Status: REG ER Study:CTA Abd/Pelvis W/WO Contrast Date of Ex am: 11/05/24 Exam# [id number] Ordering Dr: Erica Linares DO PROCEDURE: CTA [...] mesentery with limited distal opacification. Adrenal glands: Dwqx-omeauke-obsx-right adrenal thickening. Kidneys/Ureters: Symmetric bilateral renal enhancement. [...] CC: MARYAM Olson; Harrison Linares DO ~ Cad Intern: Signed [facility]04-04-2025 Telephone encounter Note* Telephone Encounter - Filomena Rodrigues - 11/02/2024 2:30 PM EDT Patient and his daughter stopped in to talk to Jolynn Frias. 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 Please call patients daughter Teresa [phone] [facility]04-04-2025 Miscellaneous Notes* Telephone Encounter - Filomena Rodrigues - 11/02/2024 2:30 PM EDT Patient and his daughter stopped in to talk to Jolynn Frias. 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 Please call patients daughter Teresa [phone] [facility] Evaluation note* Diagnosis Onset Date Resolution [...] ing with diagnosis of hypertension acute M 2024 11:24am Metastatic colon cancer to liver [...] to liver chronic February 11, 2025 2:24am [facility] [employer] [facility] Work Phone: 1(610) 442-891704-02-2025 Evaluation note* Diagnosis Onset Date Resolution Status [...] to liver chronic February 11, 2025 2:24am Acute liver failure acute February 19, 2025 2:35pm Ascites acute February 19 2:35pm Metastatic colon cancer to liver acu te February 19, 2025 2:35pm [facility] Work Phone: [phone] 988-113903-26-2025 Discharge summary [facility] Medical Records Department [address] [place] [address] Emergency Department Summary 10/24/24 MR#: [id number] Acct: [id number] Name: JARED RAYMOND Rep #:[id number] : 1945 79 From: Jerry Yuen PCP: MARYAM Guerra Status:REG ER Location: ED HPI History of Present Illness Chief Complaint: Flank Pain PFSH [facility] Medical History (Updated 10/24/24 @ [...] Discharge home This note was generated with [employer] dictation software. It may contain incorrectwords, spelling, [...] 77.1 H Lymph % (Auto) 12.7 L Cherry % (Auto) 8.4 Eos % (Auto) 1.0 [...] Clarity Clear Urine pH 8.0 Ur Specific [place] 1.010 Urine Protein 15 H Urine Glucose [...] SONOGRAPHIC EVIDENCE OF TESTICULAR TORSION. Reading Location: [facility] Discharge Plan Triage Chief Complaint: Flank Pain [...] NP-C [Primary Care Provider] - Print Language: Norwegian What to do if you have Problems For any increased pain, shortness of breath, bleeding, nausea or vomiting, chestpain, or any unexpected problems, contact your Primary Care Provider. Call [facility] ([phone]) or report tothe closest Emergency Room. Call 911 if necessary. 10/24/242033 Cosigner Signature (if applicable): CC: MARYAM Olson ~ Signed [facility]03-26-2025 Radiology Diagnostic study note [facility] Imaging Services [address] [place] [address] Testicular with Arterial Flow MR#: [id number] Acct: [id number] Name: JARED RAYMOND Rep #: [id number] : 1945 M 79 From: Vanessa Rosado MD PCP: MARYAM Guerra Status: REG ER Study:Testicular with Arterial Flow Date of E xam: 10/24/24 Exam# [id number] Ordering Dr: Robby Hightower DO PROCEDURE: TESTICULAR [...] SONOGRAPHIC EVIDENCE OF TESTICULAR TORSION. Reading Location: [facility] CC: COMMISSION SALES ASSOCIATE-C Mariela Olson; Dr. Jerry Hightower, DO ~ Cad Intern: Signed [facility]03-26-2025 Radiology Diagnostic study note [facility] Imaging Services [address] [place], [place] [address] Abdomen/Pelvis W IV Cont ONLY MR#: [id number] Acct: [id number] Name: JARED RAYMOND Rep #: [id number] : 1945 M 79 From: Vanessa Rosado MD PCP: MARYAM Guerra Status: REG CLI Study:Abdomen/Pelvis W IV Cont ONLY Date of E xam: 10/24/24 Exam# [id number] Ordering Dr: Thang Hernandez MD PROCEDURE: ABDOMEN/PELVIS [...] excluded. Attentionon follow-up imaging recommended. Reading Location: [facility] CC: MARYAM Olson; Dr. Papi Hernandez MD ~ Cad Intern: Signed [facility]03-26-2025 Discharge summary Author Jerry Hightower [facility] Note Date/Time October 24, 2024 8:3 4pm [facility] Medical Records Department [address] [place] [address] Emergency Department Summary 10/24/24 MR#: [id number] Acct: [id number] Name: JARED RAYMOND Rep #:[id number] : 1945 79 From: Jerry Yuen PCP: MARYAM Guerra Status:REG ER Location: ED HPI History of Present Illness Chief Complaint: Flank Pain [facility] Medical History (Updated 10/24/24 [...] reviewed, Vital signs reviewed Constitutional: please see [facility] HENT: MMM Eyes: Pupils equal round [...] Discharge home This note was generated with Dragon dictation software. It may contain incorrectwords, spelling, [...] 77.1 H Lymph % (Auto) 12.7 L Cherry % (Auto) 8.4 Eos % (Auto) 1.0 [...] Clarity Clear Urine pH 8.0 Ur Specific [place] 1.010 Urine Protein 15 H Urine Glucose [...] SONOGRAPHIC EVIDENCE OF TESTICULAR TORSION. Reading Location: [facility] Discharge Plan Triage Chief Complaint: Flank Pain [...] MARYAM [Primary Care Provider] - Print Language: Norwegian What to do if you have Problems For any increased pain, shortness of breath, bleeding, nausea or vomiting, chestpain, or any unexpected problems, contact your Primary Care Provider. Call [facility] ([phone]) or report to the closest Emergency Room. Call 911 if necessary. 10/24/242033 <Electronically signed by Jerry Hightower DO> Cosigner Signature (if applicable): CC: MARYAM Olson ~ Signed [facility] Work Phone: 1(350) 685-924303-19-2025 Evaluation note* Diagnosis Onset Date Resolution Status [...] metastasis present chronic December 04, 2024 11:24am [facility] Work Phone: 1(407) 341-208503-19-2025 Evaluation note* Diagnosis Onset Date Resolution Status [...] January 09, 2025 3:16pm Colon cancer chronic Desiree 11th, 2 025 3:16pm 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 January 09, 2025 3:16pm Regional lymph node metastasis present chronic January 09 3:16pm [facility] Work Phone: 1(179) 378-791203-19-2025 Evaluation note* Diagnosis Onset Date Resolution Status [...] to liver chronic February 11, 2025 2:24am [facility] Work Phone: 1(821) 871-611102-07-2025 History of Present illness Narrative* Encounter Date [...] seldom monitors, usually can tell by his [employer] puzzles. (+) eye vitamin PO Vision seems [...] Referred by Julissa Yap O.D. at [facility]. Wears OTC readers. Straight lines appear wavy in OS. [facility] Work Phone: 1(760) 162-489601-08-2025 Evaluation note* Diagnosis Onset Date Resolution Status [...] 2:56am GI bleed acute November 18 12:59pm [facility] Work Phone: 1(535) 838-732101-08-2025 Evaluation note* Diagnosis Onset Date Resolution Status [...] 31, 2024 10:52am Medical non-compliance acute Ap ril 2024 2:56am Abdominal pain resolved November 06, [...] 2024 12:59pm Rectal bleeding acute October 12:59pm [facility] Work Phone: 1(884) 938-431701-08-2025 Evaluation note* Diagnosis Onset Date Resolution Status [...] 31, 2024 10:52am Medical non-compliance acute Ap ril 2024 2:56am Abdominal pain resolved November 06, [...] pressure reading with diagnosis of hypertension acute May 6th, 2025 11:24am Metastatic colon cancer to liver acute December 04, 2024 11:24am 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 December 04, 2024 11:24am 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 December 042024 11:24am Regional lymph node metastasis present chronic December 04, 2024 11:24am [facility] Work Phone: 1(783) 332-176812-18-2024 Evaluation note* Diagnosis Onset Date Resolution Status Admit Date Encounter for education acute D ecember 2023 8:52am 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 July 18 024 8:52am 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-abdominal [...] lymph node chronic November 06, 2024 2:56am [facility] Work Phone: 1(946) 187-877112-18-2024 Evaluation note* Diagnosis Onset Date Resolution Status [...] lymph node chronic November 06, 2024 2:56am [facility] Work Phone: 1(687) 128-741412-13-2024 Instructions* Date Instruction Additional Infor mation 7-8 [...] hemorrhage, left eye [facility] Work Phone: [phone] 150-395312-04-2024 Evaluation note* Diagnosis Onset Date Resolution Status [...] 19, 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 October 17, 2024 2:04pm [facility] Work Phone: 1(641) 918-173011-22-2024 [facility]11-18-2024 [facility]11-10-2024 [facility] 05-01-2024 [facility]09-27-2024 [facility]09-15-2024 [facility]07-25-2022 Miscellaneous Notes * Telephone Encounter - Michelakaity Saucedo - 02/22/2022 3:14 PM EDT Patient arrived at the [facility] in [place], [place] requesting an appointment to become established with a new PCP in this region. The patient reports having similar symptoms in the right upper extremity that he experienced prior to his quintuple bypass surgery. He was provided the phone number and name of the cardiac surgeon and was scheduled to see Dr. Chapman 05/28/22. Please advise patient if he should follow up with public relations counselor prior to PCP visit. documented in this encounter[facility] History of Past illness Narrative* Problem Noted Date Resolved Date On mechanically assisted ventilation 07/19/2019 07/20/2019 Overview: Grade I airway A/P- WTE Stress hyperglycemia 07/19/2019 07/21/2019 Overview: H: Post op A/P-No h/o DM. Latonia-operative insulin resistance and exacerbation of hyperglycemia. RHI drip per ICU protocol, transition to SSI documented as of this encounter (statuses as of 02/22/2022) [facility]* Clinical Note Date No Information [facility] Work Phone: Consult note Author Kush Daniel [facility] Note Date/Time November 20, 2024 1:4 3pm [facility] Medical Records Department [address] [place] [address] Counseling Note - Pharmacy 11/20/24 1342 MR#: [id number] Acct: [id number] Name: JARED RAYMOND Rep #:[id number] : 1945 79 From: Kush Daniel PCP: Mariela Shahram, COMMISSION SALES ASSOCIATE-C Status:ADM IN Y Location: [facility] Pharmacy DC Med Reconciliation Pharmacy Service has performed discharge [...] 11/20/24 11/20/24 1343 <Electronically signed by Kush elkins> Date _ Kush Vela Signature (if applicable): Date CC: ~ Signed [facility] Work Phone: Consult note Author Allan Fierro [facility] Note Date/Time February 21, 2025 2:05 pm [facility] Medical Records Department [address] [place] [address] Anesthesia Postop Eval I 02/21/25 1404 MR#: [id number] Acct: [id number] Name: JARED RAYMOND Ravi Rep #:[id number] : 1945 79 From: Allan Fierro CRNA PCP: MARYAM Guerra Status:REG SDC Y Race: C Location: [place] [address] Anesthesia: Postop Eval I Current Vital Signs Temperature: 97.0 F Pulse Rate: 67 Blood Pressure: 180/80 Respiratory Rate: 24 Pulse Ox: 100 Oxygen Delivery Method: Room Air Assessment Airway patent: Yes Spontaneous unlabored respirations: Yes Mental status: Awake and Calm nausea: No Vomiting: No Anesthesia Complication: No Fluid Hydration Crystalloid volume administer (ml): 400 Total IV fluid infused: 400 Progress Note Anesthesia document: Postop Eval 1 completed: Yes 02/21/25 1405 <Electronically signed by Allan toribio CRNA> Date _ Allan Fierro TARIFF CLERK Cosigner Signature: Date CC: ~ Signed [facility] Work Phone: Consult note Author Mari russell [facility] Note Date/Time February 21, 2025 3:49 pm [facility] Medical Records Department [address] [place] [id number] Anesthesia Postop Eval II 02/21/25 1457 MR#: [id number] Acct: [id number] Name: JARED RAYMOND Rep #:[id number] : 1945 79 From: Mari pacheco MD PCP: MARYAM Guerra Status:REG SDC Y Race: C Location: [place] [address] Anesthesia Postop Eval I Sum Postop Eval Completion status Anesthesia document: Postop Eval 1 completed: Yes Anesthesia Postop Eval I Summary Anesthesia Postop Eval I Summary: Anesthesia Postop Eval I: Assessment Summary Airway patent Yes 02/21/25 14:05 [email or web address] Spontaneous unlabored Yes 02/21/25 14:05 [email or web address] respirations Mental status Awake,Calm 02/21/25 14:05 [email or web address] nausea No 02/21/25 14:05 [email or web address] Vomiting No 02/21/25 14:05 [email or web address] Anesthesia Postop Eval I: Fluid Summary Crystalloid volume administer 400 02/21/25 14:05 [email or web address] (ml) Colloids volume administered ( ml) Blood Product volume administered (ml) Total IV fluid infused 400 02/21/25 14:05 [email or web address] Anesthesia Postop Eval I: Summary Notes Anesthesia Complication No 02/21/25 14:05 [email or web address] Anesthesia Complication Comment: Post-operative progress note Anesthesia: Postop Eval II Evaluation Mental status: Awake and Calm Pain Level: 1 nausea: No Vomiting: No Complications Anesthesia Complication: No 02/21/25 1457 <Electronically signed by Mari eaton MD> Date _ Mari Clayton MD Cosigner Signature: Date CC: ~ Signed [facility] Work Phone: Discharge summary* Clinical Note Date No Information [facility] Work Phone: Discharge summary Author Stevie Harrington [facility] Note Date/Time November 07, 2024 5:07 pm [facility] Medical Records Department [address] [place] [address] Discharge Summary 11/07/245 MR#: [id number] Acct: [id number] Name: JARED RAYMOND Rep #:[id number] : 1945 79 From: Stevie Harrington DO PCP: MARYAM Guerra Status:ADM IN [facility] Prov[facility] Date of Admission: 11/06/24 Primary Care Physician: MARYAM Guerra Consultations 11/06/24 03:28 Consult: Gastroenterology Routine Consulting Provider: [facility] Reason for Consult: LGIB with BRBPR; [...] 70.4 H, Lymph % (Auto) 14.8 L, Cherry % (Auto) 12.5 H, Eos % (Auto) [...] Self Care Charges/Coding Visit Charges Inpatient E&M: 31908 Disch Hosp >30min 11/07/24 1707 <Electronically signed by Stevie Harrington DO> Cosigner Signature (if applicable): CC: ABDIASC Mariela Olson; Dr. Stevie Harrington DO~ Signed [facility] Work Phone: Discharge summary Author Nicho Cantor [facility] Note Date/Time February 21, 2025 2:03 pm [facility] Medical Records Department [address] [place] [address] Instructions for Home/Discharge Instructions 02/21/25 1402 MR#: [id number] Acct: [id number] Name: JARED RAYMOND Rep #:[id number] : 1945 79 From: Nicho nava MD PCP: MARYAM Guerra Status:REG LAC Discharge Instructions Diet Discharge Diet: No restrictions Activity Discharge Activity: Return to Normal Activity Dressing / Incision Call your doctor if your incision/area has: Continuous Slow Oozing, Sudden Increased Bleeding, Increased Pain/ Swelling, Increased Redness, Foul Smelling Discharge and Swelling at the incision site Call your doctor if you observe: Fever of 101 or Higher and Inability to have a bowel movement Remove Dressing in: 4 days Cleanse incision/area with: Soap & Water Follow Up Care Please Follow Up With: Nicho Cantor MD When: as needed. [phone] Test Results: Test results from this visit will be discussed in further detail at your follow- up appointment, if applicable. Discharge Plan Admission Attending Provider: Nicho Cantor Primary Care Provider: Mariela Olson Instructions Print Language: Norwegian Discharge Orders/Prescriptions Prescriptions: No Action metoprolol tartrate [...] Order can be placed): Home, Self Care 02/21/25 1403<Electronically signed by Nicho Cantor MD>Nicho Cantor MD CC: CHRISTEL-C Mariela Olson ~ Signed [facility] Work Phone: Evaluation noteNo assessment information available [facility] Work Phone: Evaluation note* Diagnosis Onset Date Resolution Status Acute alteration in mental status acute Elevated troponin acute Chronic hypertension chronic [facility] Work Phone: Evaluation note* Diagnosis Onset Date Resolution Status Elevated troponin acute Chronic hypertension chronic Hypertensive emergency witho ut congestive heart failure resolved [facility] Work Phone: Evaluation note* Type [...] begin a bowel regimen which will include hllo-cye-dqxzqma medicine such as senna, Colace and MiraLAX. Please return to the emergency department if your symptoms change or worsen. Please follow with your primary care physician for further outpatient evaluation and management.[facility] Work Phone: Hospital Discharge instructionsAdditional Instructions Date of Discharge: 02/12/25[facility] Work Phone: Progress note* Clinical Note Date No Information [facility] Work Phone: Reigzx for referral (narrative)* Reason For Referral No Information [facility] Work Phone: Regkkz for referral (narrative)No reason for referral information available[facility] Work Phone: Advance Directives Documents on File Type Date Recorded 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 Supervisor Backfilling Expl anation Advance Directive(s) 07/18/2019 4:40 PM Advance Directive(s) 07/12/2019 2:31 PM Advance Directive(s) 05/14/2019 8:30 AM Advance Directive Response Recorded Date/ Time Advance Directives No October 31 11:26am Living Will Yes March 06, 2018 2:30pm Power of Golf Course Assistant No March 06 2:30pm Advance Directive Response Recorded Date/ Time Advance Directives No October 31 10:26am Living Will Yes August 15 6:13pm Power of Golf Course Assistant Yes August 15, 2023 6:13pm Name of Medical Power of Golf Course Assistant Spring Raymond August 15, 2023 6:13pm Advance Directive Response Recorded Date/ Time Name of Medical Power of Golf Course Assistant SPRING RAYMOND August 15, 2023 11:26pm Advance Directives No October 31 11:26am Living Will No December 11, 2023 2 :44am Power of Golf Course Assistant No December 11, 2023 2:44am Directive Yes / No Effective Date File Name No Information Advance Directive Response Recorded Date/ Time Living Will Yes April 12, 2024 2:59am Do you have a Healthcare Power of Golf Course Assistant? Yes April 12, 2024 2:59am Living Will Yes April 27, 2024 2:58pm Do you have a Healthcare Power of Golf Course Assistant? Yes April 27, 2024 2:58pm Living Will Yes October 24, 2024 6:01pm Do you have a Healthcare Power of Golf Course Assistant? Yes October 24, 2024 6:01pm Name of Medical Power of Golf Course Assistant October 24, 2024 6:01pm Advance Directives No October 31 11:26am Advance Directive Response Recorded Date/ Time Living Will Yes April 12, 2024 2:59am Do you have a Healthcare Power of Golf Course Assistant? Yes April 12, 2024 2:59am Living Will Yes April 27, 2024 2:58pm Do you have a Healthcare Power of Golf Course Assistant? Yes April 27, 2024 2:58pm Living Will Yes October 24, 2024 6:01pm Do you have a Healthcare Power of Golf Course Assistant? Yes October 24, 2024 6:01pm Name of Medical Power of Golf Course Assistant October 24, 2024 6:01pm Living Will No November 05, 2024 10:42pm Do you have a Healthcare Power of Golf Course Assistant? No November 05, 2024 10:42pm Advance Directives No October 31 11:26am Advance Directive Response Recorded Date/ Time Living Will Yes April 12, 2024 2:59am Do you have a Healthcare Power of Golf Course Assistant? Yes April 12, 2024 2:59am Living Will Yes April 27, 2024 2:58pm Do you have a Healthcare Power of Golf Course Assistant? Yes April 27, 2024 2:58pm Living Will Yes October 24, 2024 6:01pm Do you have a Healthcare Power of Golf Course Assistant? Yes October 24, 2024 6:01pm Name of Medical Power of Golf Course Assistant October 24, 2024 6:01pm Living Will No November 06, 2024 3:38am Do you have a Healthcare Power of Golf Course Assistant? No November 06, 2024 3:38am Advance Directives No October 31 11:26am Advance Directive Response Recorded Date/ Time Living Will Yes April 12, 2024 2:59am Do you have a Healthcare Power of Golf Course Assistant? Yes April 12, 2024 2:59am Living Will Yes April 27, 2024 2:58pm Do you have a Healthcare Power of Golf Course Assistant? Yes April 27, 2024 2:58pm Living Will No November 18, 2024 10:49am Do you have a Healthcare Power of Golf Course Assistant? No November 18, 2024 10:49am Living Will Yes October 24, 2024 6:01pm Do you have a Healthcare Power of Golf Course Assistant? Yes October 24, 2024 6:01pm Name of Medical Power of Golf Course Assistant October 24, 2024 6:01pm Living Will No November 06, 2024 3:38am Do you have a Healthcare Power of Golf Course Assistant? No November 06, 2024 3:38am Advance Directives No October 31 11:26am Advance Directive Response Recorded Date/ Time Living Will Yes April 12, 2024 2:59am Do you have a Healthcare Power of Golf Course Assistant? Yes April 12, 2024 2:59am Living Will Yes April 27, 2024 2:58pm Do you have a Healthcare Power of Golf Course Assistant? Yes April 27, 2024 2:58pm Living Will No November 18, 2024 3:46pm Do you have a Healthcare Power of Golf Course Assistant? No November 18, 2024 3:46pm Living Will Yes October 24, 2024 6:01pm Do you have a Healthcare Power of Golf Course Assistant? Yes October 24, 2024 6:01pm Name of Medical Power of Golf Course Assistant October 24, 2024 6:01pm Living Will No November 06, 2024 3:38am Do you have a Healthcare Power of Golf Course Assistant? No November 06, 2024 3:38am Advance Directives No October 31 11:26am Advance Directive Response Recorded Date/ Time Living Will Yes April 12, 2024 2:59am Do you have a Healthcare Power of Golf Course Assistant? Yes April 12, 2024 2:59am Living Will Yes April 27, 2024 2:58pm Do you have a Healthcare Power of Golf Course Assistant? Yes April 27, 2024 2:58pm Living Will No November 18, 2024 3:46pm Do you have a Healthcare Power of Golf Course Assistant? No November 18, 2024 3:46pm Living Will Yes October 24, 2024 6:01pm Do you have a Healthcare Power of Golf Course Assistant? Yes October 24, 2024 6:01pm Name of Medical Power of Golf Course Assistant October 24, 2024 6:01pm Living Will No November 06, 2024 3:38am Do you have a Healthcare Power of Golf Course Assistant? No November 06, 2024 3:38am Living Will No January 14, 2025 9:01am Do you have a Healthcare Power of Golf Course Assistant? No January 14, 2025 9:01am Advance Directives No January 14 9:01am Advance Directive Response Recorded Date/ Time Living Will Yes April 12, 2024 2:59am Do you have a Healthcare Power of Golf Course Assistant? Yes April 12, 2024 2:59am Living Will Yes April 27, 2024 2:58pm Do you have a Healthcare Power of Golf Course Assistant? Yes April 27, 2024 2:58pm Living Will No November 18, 2024 3:46pm Do you have a Healthcare Power of Golf Course Assistant? No November 18, 2024 3:46pm Do you have a Healthcare Power of Golf Course Assistant? No February 11, 2025 12:52am Living Will Yes October 24, 2024 6:01pm Do you have a Healthcare Power of Golf Course Assistant? Yes October 24, 2024 6:01pm Name of Medical Power of Golf Course Assistant March 26th, 2025 6:01pm Living Will No November 06, 2024 3:38am Do you have a Healthcare Power of Golf Course Assistant? No November 06, 2024 3:38am Living Will No January 14, 2025 9:01am Do you have a Healthcare Power of Golf Course Assistant? No January 14, 2025 9:01am Advance Directives No January 14 9:01am Advance Directive Response Recorded Date/ Time Living Will Yes April 12, 2024 2:59am Do you have a Healthcare Power of Golf Course Assistant? Yes April 12, 2024 2:59am Living Will Yes April 27, 2024 2:58pm Do you have a Healthcare Power of Golf Course Assistant? Yes April 27, 2024 2:58pm Living Will No November 18, 2024 3:46pm Do you have a Healthcare Power of Golf Course Assistant? No November 18, 2024 3:46pm Do you have a Healthcare Power of Golf Course Assistant? Yes February 11, 2025 4:27am Living Will Yes October 24, 2024 6:01pm Do you have a Healthcare Power of Golf Course Assistant? Yes October 24, 2024 6:01pm Name of Medical Power of Golf Course Assistant October 24, 2024 6:01pm Living Will No November 06, 2024 3:38am Do you have a Healthcare Power of Golf Course Assistant? No November 06, 2024 3:38am Living Will No January 14, 2025 9:01am Do you have a Healthcare Power of Golf Course Assistant? No January 14, 2025 9:01am Advance Directives No January 14 9:01am Advance Directive Response Recorded Date/ Time Living Will Yes April 27, 2024 2:58pm Do you have a Healthcare Power of Golf Course Assistant? Yes April 27, 2024 2:58pm Living Will No November 18, 2024 3:46pm Do you have a Healthcare Power of Golf Course Assistant? No November 18, 2024 3:46pm Do you have a Healthcare Power of Golf Course Assistant? Yes February 11, 2025 4:27am Living Will Yes October 24, 2024 6:01pm Do you have a Healthcare Power of Golf Course Assistant? Yes October 24, 2024 6:01pm Name of Medical Power of Golf Course Assistant October 24, 2024 6:01pm Living Will No November 06, 2024 3:38am Do you have a Healthcare Power of Golf Course Assistant? No November 06, 2024 3:38am Living Will No January 14, 2025 9:01am Do you have a Healthcare Power of Golf Course Assistant? No January 14, 2025 9:01am Advance Directives No January 14 9:01am Advance Directive Response Recorded Date/ Time Living Will Yes April 27, 2024 2:58pm Do you have a Healthcare Power of Golf Course Assistant? Yes April 27, 2024 2:58pm Living Will No November 18, 2024 3:46pm Do you have a Healthcare Power of Golf Course Assistant? No November 18, 2024 3:46pm Do you have a Healthcare Power of Golf Course Assistant? Yes February 11, 2025 4:27am Living Will Yes October 24, 2024 6:01pm Do you have a Healthcare Power of Golf Course Assistant? Yes October 24, 2024 6:01pm Name of Medical Power of Golf Course Assistant October 24, 2024 6:01pm Living Will No November 06, 2024 3:38am Do you have a Healthcare Power of Golf Course Assistant? No November 06, 2024 3:38am Living Will No January 14, 2025 9:01am Do you have a Healthcare Power of Golf Course Assistant? No January 14, 2025 9:01am Advance Directives No January 14 9:01am Do you have a Healthcare Power of Golf Course Assistant? Yes February 18, 2025 1:29pm Family History Relationship Condition Age at Onset [...] 04, 2024 2:12pm Encounter for education July 18 024 8:52am 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-abdom [...] 2 025 2:56am Mediastinal lymphadenopathy November 06 025 [...] 2024 2:56 am Mediastinal lymphadenopathy November 06 025 2:56am Medical non-compliance November 06, 2024 [...] November 20, 2024 1:2 2pm [facility] October 10:59am RE-EVALUATE [...] November 20, 2024 1:2 2pm F/[facility] TO DR Olivares October 10:59am [...] November 20, 2024 1:2 2pm [facility] Oliv[facility] October 10:59am RE-EVALUATE November 28, 2024 12: 43pm COLON CA November 30, 2024 2:21pm Hospital FU December 04, 2024 11:24a m Malignant neoplasm of ascending colon Ma y 2024 7:38am 2 ORDERING DRS December 14, 2024 3:07p m Nonrheumatic aortic (valve) stenosis Dec 8:08am REVIEW PATH January 09, 2025 3:16 pm Nonrheumatic aortic (valve) stenosis Dec 8:27am Reason for Visit Admit Date RLQ [...] pm Regional lymph node metastasis present J [facility] 2024 3:16pm Chief Complaint Admit [...] November 20, 2024 1:2 2pm F/U FROM [facility] TO DR Olivares October 10:59am RE-EVALUATE November [...] m Regional lymph node metastasis present M 2024 11:24am Anemia January 09, 2025 3:16 pm Anemia due to blood loss January 09, 2025 3:16pm Colon cancer January 09, 2025 3:16 pm Metastasis to liver January 09, 2025 3:16 pm Regional lymph node metastasis present J [facility] 2024 3:16pm Acute liver failure February 11, [...] November 20, 2024 1:2 2pm F/U FROM [facility] TO DR Olivares October 10:59am RE-EVALUATE November [...] pm Regional lymph node metastasis present J [facility] 2024 3:16pm Acute liver failure February 11, 2025 2:24 am Ascites February 11, 2025 2:24 am Metastasis to liver February 11, 2025 2:24 am Reason for Visit Admit Date Colon cancer [...] 59am Regional lymph node metastasis present A [facility] 2024 10:59am Elevated blood pressure read ing with diagnosis of hypertension December 04, 2024 11:24am Metastatic colon cancer to liver November 11:24am Anemia due to blood loss December 04, 2024 1 1:24am Metastasis to liver December 04, 2024 11:24a m Regional lymph node metastasis present M 2024 11:24am Anemia January 09, 2025 3:16 pm Anemia due to blood loss January 09, 2025 3:16pm Colon cancer January 09, 2025 3:16 pm Metastasis to liver January 09, 2025 3:16 pm Regional lymph node metastasis present J [facility] 2024 3:16pm Acute liver failure February 11, 2025 2:24 am Ascites February 11, 2025 2:24 am Metastasis to liver Gillian 14th, 2025 2:24 am Acute liver failure February 19, 2025 2:35 pm Ascites February 19, 2025 2:35 pm Metastatic colon cancer to liver February 192024 2:35pm Chief Complaint Admit Date MED ONC October [...] PLEUREX CATH February 19, 2025 2:35 pm Insertion, Tunneled abdomen Tube,Pleurex February 21, 2025 12:05pm Insertion, Tunneled abdomen Tube,Pleurex February 21, 2025 12:45pm Summary Purpose Additional Source Comments Source Comments (unrecognize d section and content) In the event this informatio n is protected by the Federal Confidentiality of Alcohol and Drug Abuse Patient Records regulations: The Federal rules restrict any use of the information to criminally investigate or prosecute any alcohol or drug abuse patient.[facility] the event this information is protected by the Federal Confidentiality of Alcohol and Drug Abuse Patient Records regulations: The Federal rules restrict any use of the information to criminally investigate or prosecute any alcohol or drug abuse patient.[facility] Reason for Visit (unrecogniz ed section and content) Reason Comments Patient Question Reason Onset Date Comments Orders 01/29/2025 CTA TAVR Care Teams (unrecognized sec tion and content) Supervisor Microbiology Technologists Relationship Specialty Start Date End Date Neville Islas DO [address] [place] [address] PCP - General Family Practice 05/07/19 Team Status: Active Member Role Status Dates Dr. Neville Islas DO Family Provider Active MARYAM Guerra Primary Care Provider Active Team Status: Inactive Member Role Status Dates MARYAM Guerra Primary Care Provide r, Attending Provider, Referring Provider Active Team Status: Active Member Role Status Dates Dr. Neville Islas DO Family Provider Active Dr. Neville Islas , DO Primary Care Provider Active Team Status: [...] Stevie Umanzor MD Attending Provider Active Dr. Darerl Carpenter DO Referring Provider Active Team Status: Active [...] Dates Dr. Neville Islas DO Primary Care Provider, Attendin g Provider [...] Active Member Role Status Dates Mariela Olson COMMISSION SALES ASSOCIATE-C Primary Care Provider Active Team Status: Inactive Member Role Status Dates Mariela Olson NP-C Primary Care Provider Active Start: July 04, 2024 End: July 04, 2024 Mariela Olson NP-C Referring Provider Active St art: July 04, 2024 End: July 04, 2024 Dr. Papi Hernandez MD Attending Provider Active S tart: July 04, 2024 End: July 04, 2024 Team Status: Inactive Member Role Status Dates Mariela Olson , COMMISSION SALES ASSOCIATE-C Primary Care Provider Active Start: July 18, 2024 End: July 18, 2024 Mariela Olson , COMMISSION SALES ASSOCIATE-C Referring Provider Active St art: July 18, 2024 End: July 18, 2024 Selam Craig COMMISSION SALES ASSOCIATE, COMMISSION SALES ASSOCIATE-C Attending Provider Active Start: July 18, 2024 End: July 18, 2024 Team Status: Inactive Member Role Status Dates Mraiela Olson , COMMISSION SALES ASSOCIATE-C Primary Care Provider Active Start: August 08, 2024 End: August 08, 2024 Mariela Olson , COMMISSION SALES ASSOCIATE-C Referring Provider Active St art: August 08, 2024 End: August 08, 2024 Dr. Papi Hernandez MD Attending Provider Active S tart: August 08, 2024 End: August 08, 2024 Team Status: Inactive Member Role Status Dates Marielabruce Olson , COMMISSION SALES ASSOCIATE-C Primary Care Provider Active Start: September 05, 2024 End: September 05, 2024 Mariela Olson , COMMISSION SALES ASSOCIATE-C Attending Provider Active St art: September 05, 2024 End: September 05, 2024 Team Status: Inactive Member Role Status Dates Mariela Olson , COMMISSION SALES ASSOCIATE-C Primary Care Provider Active Start: October 17, 2024 End: October 17, 2024 Mariela Olson , COMMISSION SALES ASSOCIATE-C Referring Provider Active St art: October 17, 2024 End: October 17, 2024 Malinda Webster COMMISSION SALES ASSOCIATE, COMMISSION SALES ASSOCIATE-C Attending Provider Active S tart: October 17, 2024 End: October 17, 2024 Team Status: Active Member Role Status Dates Marielabruce Olson , COMMISSION SALES ASSOCIATE-C Primary Care Provider Active Start: October 17, 2024 Malinda Webster COMMISSION SALES ASSOCIATE, COMMISSION SALES ASSOCIATE-C Attending Provider Active S tart: October 17, 2024 Malinda Webster COMMISSION SALES ASSOCIATE, COMMISSION SALES ASSOCIATE-C Referring Provider Active S tart: October 17, 2024 Team Status: Active Member Role Status Dates Mariela Olson , COMMISSION SALES ASSOCIATE-C Primary Care Provider Active Start: October 24, 2024 Dr. Papi Hernandez MD Attending Provider Active S tart: October 24, 2024 Dr. Papi Hernandez MD Referring Provider Active S tart: October 24, 2024 Team Status: Inactive Member Role Status Dates Mariela Olson , COMMISSION SALES ASSOCIATE-C Primary Care Provider Active Start: October 24, 2024 End: October 24, 2024 Dr. Jerry Hightower DO Emergency Provider Active Start: October 24, 2024 End: October 24, 2024 Team Status: Inactive Member Role Status Dates Mariela Olson , COMMISSION SALES ASSOCIATE-C Primary Care Provider Active Start: October 17, 2024 End: October 17, 2024 Malinda Webster COMMISSION SALES ASSOCIATE, COMMISSION SALES ASSOCIATE-C Attending Provider Active S tart: October 17, 2024 End: October 17, 2024 Malinda Webster COMMISSION SALES ASSOCIATE, COMMISSION SALES ASSOCIATE-C Referring Provider Active S tart: October 17, 2024 End: October 17, 2024 Team Status: Inactive Member Role Status Dates Mariela Olson COMMISSION SALES ASSOCIATE-C Primary Care Provider Active Start: October 24, 2024 End: October 24, 2024 Dr. Papi Hernandez MD Attending Provider Active S tart: October 24, 2024 End: October 24, 2024 Dr. Papi Hernandez MD Referring Provider Active S tart: October 24, 2024 End: October 24, 2024 Team Status: Inactive Member Role Status Dates Mariela Olson , COMMISSION SALES ASSOCIATE-C Primary Care Provider Active Start: October 24, 2024 End: October 24, 2024 Dr. Jerry Hightower DO Attending Provider Active Start: October 24, 2024 End: October 24, 2024 Dr. Jerry Hightower DO Emergency Provider Active Start: October 24, 2024 End: October 24, 2024 Team Status: Inactive Member Role Status Dates Mariela Olson , COMMISSION SALES ASSOCIATE-C Primary Care Provider Active Start: October 31, 2024 End: October 31, 2024 Mariela Olson , COMMISSION SALES ASSOCIATE-C Referring Provider Active St art: October 31, 2024 End: October 31, 2024 Dr. Papi Hernandez MD Attending Provider Active S tart: October 31, 2024 End: October 31, 2024 Team Status: Active Member Role Status Dates Mariela Olson , COMMISSION SALES ASSOCIATE-C Primary Care Provider Active Start: November 06, 2024 Dr. Harrison Linares DO Emergency Provider Active Start: November 06, 2024 Dr. Darrel Carpenter DO Admit Provider Active Start: November 06, 2024 Dr. Darrel Carpenter , DO Attending Provider Active Start: November 06, 2024 Team Status: Inactive Member Role Status Dates Mariela Olson , COMMISSION SALES ASSOCIATE-C Primary Care Provider Active Start: November 06, [...] Member Role Status Dates Mariela Olson , COMMISSION SALES ASSOCIATE-C Primary Care Provider Active Start: November 06, [...] Member Role Status Dates Mariela Olson , COMMISSION SALES ASSOCIATE-C Primary Care Provider Active Start: November 07, [...] Member Role Status Dates Mariela Olson , COMMISSION SALES ASSOCIATE-C Primary Care Provider Active Start: November 06, [...] t: November 06, 2024 Dr. Ari Silvestre DO Attending Provider Active Start: November 06, 2024 Team Status: Active Member Role Status Dates Mariela Olson COMMISSION SALES ASSOCIATE-C Primary Care Provider Active Start: November 07, 2024 End: November 07, 2024 Dr. Adrian Flores MD Attending Provider Active S tart: November 07, 2024 End: November 07, 2024 Dr. Adrian Flores MD Referring Provider Active S tart: November 07, 2024 End: November 07, 2024 Team Status: Active Member Role Status Dates Mariela Olson COMMISSION SALES ASSOCIATE-C Primary Care Provider Active Start: November 18, 2024 Dr. Lazaro Sharp MD Emergency Provider Active Sta rt: November 18, 2024 Dr. Kelvin Schrader MD Admit Provider Active Start: November 18, 2024 Dr. Kelvin Schrader MD Attending Provider Active Start: November 18, 2024 Dr. Kelvin Schrader MD Referring Provider Active Start: November 18, 2024 Team Status: Inactive Member Role Status Dates Mariela Olson COMMISSION SALES ASSOCIATE-C Primary Care Provider Active Start: November 18, [...] Active Member Role Status Dates Mariela Olson COMMISSION SALES ASSOCIATE-C Primary Care Provider Active Start: November 18, [...] Member Role Status Dates Mariela Olson , COMMISSION SALES ASSOCIATE-C Primary Care Provider Active Start: November 19, 2024 Dr. Lazaro Sharp MD Emergency Provider Active Sta rt: November 19, 2024 Dr. Kelvin Schrader MD Admit Provider Active Start: November 19, 2024 Dr. Kelvin Schrader MD Other Provider Active Start: November 19, 2024 Dr. Neville Jang , Attending Provider Active Start: November 19, 2024 Dr. Neville Jang DO Other Provider Active S tart: November 19, 2024 Team Status: Active Member Role Status Dates Mariela Olson , COMMISSION SALES ASSOCIATE-C Primary Care Provider Active Start: November 20, [...] Member Role Status Dates Mariela Olson , COMMISSION SALES ASSOCIATE-C Primary Care Provider Active Start: November 28, 2024 End: November 28, 2024 Mariela Olson , COMMISSION SALES ASSOCIATE-C Referring Provider Active St art: November 28, 2024 End: November 28, 2024 Dr. Brenda Araujo MD Attending Provider Active Start: November 28, 2024 End: November 28, 2024 Team Status: Inactive Member Role Status Dates Mariela Olson , COMMISSION SALES ASSOCIATE-C Primary Care Provider Active Start: November 28, 2024 End: November 28, 2024 Malinda Webster COMMISSION SALES ASSOCIATE, COMMISSION SALES ASSOCIATE-C Attending Provider Active S tart: November 28, 2024 End: November 28, 2024 Malinda Webster COMMISSION SALES ASSOCIATE, COMMISSION SALES ASSOCIATE-C Referring Provider Active S tart: November 28, 2024 End: November 28, 2024 Team Status: Active Member Role Status Dates Mariela Olson , COMMISSION SALES ASSOCIATE-C Primary Care Provider Active Start: November 28, 2024 Dr. Adrian Flores MD Attending Provider Active S tart: November 28, 2024 Team Status: Inactive Member Role Status Dates Mariela Olson , COMMISSION SALES ASSOCIATE-C Primary Care Provider Active Start: November 30, 2024 End: November 30, 2024 Dr. Brenda Araujo MD Attending Provider Active Start: November 30, 2024 End: November 30, 2024 Dr. Brenda Araujo MD Referring Provider Active Start: November 30, 2024 End: November 30, 2024 Team Status: Inactive Member Role Status Dates Mariela Olson , COMMISSION SALES ASSOCIATE-C Primary Care Provider Active Start: December 04, 2024 End: December 04, 2024 Mariela Olson , COMMISSION SALES ASSOCIATE-C Referring Provider Active St art: December 04, 2024 End: December 04, 2024 Dr. Ari Silvestre DO Attending Provider Active Start: December 04, 2024 End: December 04, 2024 Team Status: Active Member Role Status Dates Mariela Olson , COMMISSION SALES ASSOCIATE-C Primary Care Provider Active Start: December 05, 2024 Dr. Brenda Araujo MD Attending Provider Active Start: December 05, 2024 Dr. Brenda Araujo MD Referring Provider Active Start: December 05, 2024 Team Status: Inactive Member Role Status Dates Mariela Olson , COMMISSION SALES ASSOCIATE-C Primary Care Provider Active Start: December 05, 2024 End: December 05, 2024 Dr. Brenda Araujo MD Attending Provider Active Start: December 05, 2024 End: December 05, 2024 Dr. Brenda Araujo MD Referring Provider Active Start: December 05, 2024 End: December 05, 2024 Team Status: Inactive Member Role Status Dates Mariela Olson , COMMISSION SALES ASSOCIATE-C Primary Care Provider Active Start: December 14, 2024 End: December 14, 2024 Malinda Webster COMMISSION SALES ASSOCIATE, COMMISSION SALES ASSOCIATE-C Attending Provider Active S tart: December 14, 2024 End: December 14, 2024 Dr. Brenda Araujo MD Referring Provider Active Start: December 14, 2024 End: December 14, 2024 Team Status: Inactive Member Role Status Dates Mariela Olson , COMMISSION SALES ASSOCIATE-C Primary Care Provider Active Start: January 09, 2025 End: January 09, 2025 Mariela Olson , COMMISSION SALES ASSOCIATE-C Referring Provider Active St art: January 09, 2025 End: January 09, 2025 Dr. Brenda Araujo MD Attending Provider Active Start: January 09, 2025 End: January 09, 2025 Super[employer] Relationship Specialty Start Date End Date Neville Islas DO [address] [facility] [place] [address] PCP - General Family Medicine 05/07/19 Team Status: Active Member Role Status Dates Mariela Olson COMMISSION SALES ASSOCIATE-C Primary Care Provider Active Start: January 06, 2025 Dr. Adrian Flores MD Attending Provider Active S tart: January 06, 2025 Dr. Adrian Flores MD Referring Provider Active S tart: January 06, 2025 Dr. Adrian Flores MD Other Provider Active Start : January 06, 2025 Team Status: Inactive Member Role Status Dates Mariela Olson COMMISSION SALES ASSOCIATE-C Primary Care Provider Active Start: January 14, 2025 End: January 14, 2025 Dr. Adrian Flores MD Attending Provider Active S tart: January 14, 2025 End: January 14, 2025 Dr. Adrian Flores MD Referring Provider Active S tart: January 14, 2025 End: January 14, 2025 Team Status: Active Member Role/Relationship Status Dates Mariela Olson COMMISSION SALES ASSOCIATE-C Primary Care Provider Active Team Status: Inactive Member Role/Relationship Status Dates Mariela Olson COMMISSION SALES ASSOCIATE-C Primary Care Provider Active Start: October 17, 2024 End: October 17, 2024 Mariela Olson COMMISSION SALES ASSOCIATE-C Referring Provider Active St art: October 17, 2024 End: October 17, 2024 Malinda Webster COMMISSION SALES ASSOCIATE, COMMISSION SALES ASSOCIATE-C Attending Provider Active S tart: October 17, 2024 End: October 17, 2024 Team Status: Inactive Member Role/Relationship Status Dates Mariela Olson COMMISSION SALES ASSOCIATE-C Primary Care Provider Active Start: October 17, 2024 End: October 17, 2024 Malinda Webster COMMISSION SALES ASSOCIATE, COMMISSION SALES ASSOCIATE-C Attending Provider Active S tart: October 17, 2024 End: October 17, 2024 Malinda Webster COMMISSION SALES ASSOCIATE, COMMISSION SALES ASSOCIATE-C Referring Provider Active S tart: October 17, 2024 End: October 17, 2024 Team Status: Active Member Role/Relationship Status Dates Mariela Shahram , COMMISSION SALES ASSOCIATE-C Primary Care Provider Active Start: October 24, 2024 Dr. Papi Hernandez MD Attending Provider Active S tart: October 24, 2024 Dr. Papi Hernandez MD Referring Provider Active S tart: October 24, 2024 Team Status: Inactive Member Role/Relationship Status Dates Mariela Olson , COMMISSION SALES ASSOCIATE-C Primary Care Provider Active Start: October 24, 2024 End: October 24, 2024 Dr. Papi Hernandez MD Attending Provider Active S tart: October 24, 2024 End: October 24, 2024 Dr. Papi Hernandez MD Referring Provider Active S tart: October 24, 2024 End: October 24, 2024 Team Status: Inactive Member Role/Relationship Status Dates Mariela Olson , COMMISSION SALES ASSOCIATE-C Primary Care Provider Active Start: October 24, 2024 End: October 24, 2024 Dr. Jerry Hightower DO Attending Provider Active Start: October 24, 2024 End: October 24, 2024 Dr. Jerry Hightower DO Emergency Provider Active Start: October 24, 2024 End: October 24, 2024 Team Status: Inactive Member Role/Relationship Status Dates Mariela Olson , COMMISSION SALES ASSOCIATE-C Primary Care Provider Active Start: October 31, 2024 End: October 31, 2024 Mariela Olson , COMMISSION SALES ASSOCIATE-C Referring Provider Active St art: October 31, 2024 End: October 31, 2024 Dr. Papi Hernandez MD Attending Provider Active S tart: October 31, 2024 End: October 31, 2024 Team Status: Inactive Member Role/Relationship Status Dates Mariela Olson , COMMISSION SALES ASSOCIATE-C Primary Care Provider Active Start: November 06, 2024 End: November 07, 2024 Dr. Harrison Linares , Emergency Provider Active Start: November 06, 2024 End: November 07, 2024 Dr. Darrel Carpenter , Admit Provider Active Start: November 06, 2024 End: November 07, 2024 Dr. Darrel Carpenter , Other Provider Active Start: November 06, 2024 End: November 07, 2024 Dr. Stevie Harrington DO Attending Provider Active Start: November 06, 2024 End: November 07, 2024 Dr. Stevie Harrington DO Other Provider Active Star t: November 06, 2024 Team Status: Active Member Role/Relationship Status Dates Mariela Olson , COMMISSION SALES ASSOCIATE-C Primary Care Provider Active Start: November 06, [...] Active Member Role/Relationship Status Dates Mariela Olson COMMISSION SALES ASSOCIATE-C Primary Care Provider Active Start: November 07, 2024 End: November 07, 2024 Dr. Adrian Flores MD Attending Provider Active S tart: November 07, 2024 End: November 07, 2024 Dr. Adrian Flores MD Referring Provider Active S tart: November 07, 2024 End: November 07, 2024 Team Status: Active Member Role/Relationship Status Dates Mariela Olson , COMMISSION SALES ASSOCIATE-C Primary Care Provider Active Start: November 07, 2024 Dr. Harrison Linares , Emergency Provider Active Start: November 07, 2024 Dr. Darrel Carpenter , DO Admit Provider Active Start: November 07, 2024 Dr. Darrel Carpenter , Other Provider Active Start: November 07, 2024 Dr. Stevie Harrington DO Attending Provider Active Start: November 07, 2024 Dr. Stevie Harrington , Other Provider Active Star t: November 07, 2024 Team Status: Inactive Member Role/Relationship Status Dates Mariela Olson , COMMISSION SALES ASSOCIATE-C Primary Care Provider Active Start: November 18, [...] Member Role/Relationship Status Dates Mariela Olson , COMMISSION SALES ASSOCIATE-C Primary Care Provider Active Start: November 18, 2024 Dr. Lazaro Sharp MD Emergency Provider Active Sta rt: November 18, 2024 Dr. Kelvin Schrader MD Admit Provider Active Start: November 18, 2024 Dr. Kelvin Schrader MD Attending Provider Active Start: November 18, 2024 Dr. Kelvin Schrader MD Other Provider Active Start: November 18, 2024 Team Status: Active Member Role/Relationship Status Dates Mariela Olson COMMISSION SALES ASSOCIATE-C Primary Care Provider Active Start: November 19, [...] Active Member Role/Relationship Status Dates Mariela Olson COMMISSION SALES ASSOCIATE-C Primary Care Provider Active Start: November 19, [...] Active Member Role/Relationship Status Dates Mariela Olson COMMISSION SALES ASSOCIATE-C Primary Care Provider Active Start: November 20, [...] Member Role/Relationship Status Dates Mariela Shahram , COMMISSION SALES ASSOCIATE-C Primary Care Provider Active Start: November 28, 2024 End: November 28, 2024 Mariela Shahram , COMMISSION SALES ASSOCIATE-C Referring Provider Active St art: November 28, 2024 End: November 28, 2024 Dr. Brenda Araujo MD Attending Provider Active Start: November 28, 2024 End: November 28, 2024 Team Status: Inactive Member Role/Relationship Status Dates Mariela Shahram , COMMISSION SALES ASSOCIATE-C Primary Care Provider Active Start: November 28, 2024 End: November 28, 2024 Malinda Webster COMMISSION SALES ASSOCIATE, COMMISSION SALES ASSOCIATE-C Attending Provider Active S tart: November 28, 2024 End: November 28, 2024 Malinda Webster COMMISSION SALES ASSOCIATE, COMMISSION SALES ASSOCIATE-C Referring Provider Active S tart: November 28, 2024 End: November 28, 2024 Team Status: Active Member Role/Relationship Status Dates Mariela Shahram , COMMISSION SALES ASSOCIATE-C Primary Care Provider Active Start: November 28, 2024 Dr. Adrian Flores MD Attending Provider Active S tart: November 28, 2024 Team Status: Inactive Member Role/Relationship Status Dates Mariela Shahram , COMMISSION SALES ASSOCIATE-C Primary Care Provider Active Start: November 30, 2024 End: November 30, 2024 Dr. Brenda Araujo MD Attending Provider Active Start: November 30, 2024 End: November 30, 2024 Dr. Brenda Araujo MD Referring Provider Active Start: November 30, 2024 End: November 30, 2024 Team Status: Inactive Member Role/Relationship Status Dates Mariela Shahram , COMMISSION SALES ASSOCIATE-C Primary Care Provider Active Start: December 04, 2024 End: December 04, 2024 Mariela Shahram , COMMISSION SALES ASSOCIATE-C Referring Provider Active St art: December 04, 2024 End: December 04, 2024 Dr. Ari Silvestre DO Attending Provider Active Start: December 04, 2024 End: December 04, 2024 Team Status: Inactive Member Role/Relationship Status Dates Marielabruce Olson , COMMISSION SALES ASSOCIATE-C Primary Care Provider Active Start: December 05, 2024 End: December 05, 2024 Dr. Brenda Araujo MD Attending Provider Active Start: December 05, 2024 End: December 05, 2024 Dr. Brenda Araujo MD Referring Provider Active Start: December 05, 2024 End: December 05, 2024 Team Status: Inactive Member Role/Relationship Status Dates Mariela Shaharm , COMMISSION SALES ASSOCIATE-C Primary Care Provider Active Start: December 14, 2024 End: December 14, 2024 Malinda Yisel Darin COMMISSION SALES ASSOCIATE, COMMISSION SALES ASSOCIATE-C Attending Provider Active S tart: December 14, 2024 End: December 14, 2024 Dr. Brenda Araujo MD Referring Provider Active Start: December 14, 2024 End: December 14, 2024 Team Status: Active Member Role/Relationship Status Dates Marielabruce Olson , COMMISSION SALES ASSOCIATE-C Primary Care Provider Active Start: January 06, 2025 Dr. Adrian Flores MD Attending Provider Active S tart: January 06, 2025 Dr. Adrian Flores MD Referring Provider Active S tart: January 06, 2025 Dr. Adrian Flores MD Other Provider Active Start : January 06, 2025 Team Status: Inactive Member Role/Relationship Status Dates Mariela Shahram , COMMISSION SALES ASSOCIATE-C Primary Care Provider Active Start: January 09, 2025 End: January 09, 2025 Mariela Shahram , COMMISSION SALES ASSOCIATE-C Referring Provider Active St art: January 09, 2025 End: January 09, 2025 Dr. Brenda Araujo MD Attending Provider Active Start: January 09, 2025 End: January 09, 2025 Team Status: Inactive Member Role/Relationship Status Dates Mariela Shahram , COMMISSION SALES ASSOCIATE-C Primary Care Provider Active Start: January 14, 2025 End: January 14, 2025 Dr. Adrian Flores MD Attending Provider Active S tart: January 14, 2025 End: January 14, 2025 Dr. Adrian Flores MD Referring Provider Active S tart: January 14, 2025 End: January 14, 2025 Team Status: Active Member Role/Relationship Status Dates Mariela Olson , COMMISSION SALES ASSOCIATE-C Primary Care Provider Active Start: February 07, 2025 Dr. Neville Roshan , DO Attending Provider Active Start: February 07, 2025 Team Status: Active Member Role/Relationship Status Dates Mariela Olson COMMISSION SALES ASSOCIATE-C Primary Care Provider Active Start: February 11, 2025 Dr. Harrison Linares , DO Emergency Provider Active Start: February 11, 2025 Dr. Ramirez Horne , DO Admit Provider Active Start: February 11, 2025 Dr. Ramirez Horne , DO Attending Provider Active Start: February 11, 2025 Team Status: Inactive Member Role/Relationship Status Dates Mariela Olson COMMISSION SALES ASSOCIATE-C Primary Care Provider Active Start: February 11, [...] 2025 End: February 12, 2025 Antonina Lizarraga , CHRISTEL-C Other Provider Active Sta rt: February 11, 2025 End: February 12, 2025 Nanci Islas NP, COMMISSION SALES ASSOCIATE-C Other Provider Active Start: February 11, 2025 [...] St art: February 12, 2025 Antonina Lizarraga , COMMISSION SALES ASSOCIATE-C Other Provider Active Sta rt: February 12, 2025 Nanci Islas NP, COMMISSION SALES ASSOCIATE-C Other Provider Active Start: February 12, 2025 ONDINA Enciso Other Provider Active Start: Dania [email or web address] Team Status: Inactive Member Role/Relationship Status Dates Marielabruce Olson , COMMISSION SALES ASSOCIATE-C Primary Care Provider Active Start: February 07, 2025 End: February 07, 2025 Dr. Neville Islas DO Attending Provider Active Start: February 07, 2025 End: February 07, 2025 Team Status: Active Member Role/Relationship Status Dates Mariela Shahram , COMMISSION SALES ASSOCIATE-C Primary Care Provider Active Start: February 14, 2025 Marielabruce Olson , COMMISSION SALES ASSOCIATE-C Attending Provider Active St art: February 14, 2025 Marielabruce Olson , COMMISSION SALES ASSOCIATE-C Referring Provider Active St art: February 14, 2025 Team Status: Active Member Role/Relationship Status Dates Mariela Shahram , COMMISSION SALES ASSOCIATE-C Primary Care Provider Active Start: October 24, 2024 Dr. Papi Hernandez MD Attending Provider Active S tart: October 24, 2024 Dr. Papi Hernandez MD Referring Provider Active S tart: October 24, 2024 Team Status: Inactive Member Role/Relationship Status Dates Marielabruce Olson , COMMISSION SALES ASSOCIATE-C Primary Care Provider Active Start: October 24, 2024 End: October 24, 2024 Dr. Papi Hernandez MD Attending Provider Active S tart: October 24, 2024 End: October 24, 2024 Dr. Papi Hernandez MD Referring Provider Active S tart: October 24, 2024 End: October 24, 2024 Team Status: Inactive Member Role/Relationship Status Dates Marielabruce Olson , COMMISSION SALES ASSOCIATE-C Primary Care Provider Active Start: October 24, 2024 End: October 24, 2024 Dr. Jerry Hightower DO Attending Provider Active Start: October 24, 2024 End: October 24, 2024 Dr. Jerry Hightower , DO Emergency Provider Active Start: October 24, 2024 End: October 24, 2024 Team Status: Inactive Member Role/Relationship Status Dates Mariela Shahram , COMMISSION SALES ASSOCIATE-C Primary Care Provider Active Start: October 31, 2024 End: October 31, 2024 Marilea Shahram , COMMISSION SALES ASSOCIATE-C Referring Provider Active St art: October 31, 2024 End: October 31, 2024 Dr. Papi Hernandez MD Attending Provider Active S tart: October 31, 2024 End: October 31, 2024 Team Status: Inactive Member Role/Relationship Status Dates Mariela Shahram , COMMISSION SALES ASSOCIATE-C Primary Care Provider Active Start: November 06, [...] End: November 07, 2024 Dr. Stevie Harrington DO Other Provider Active Star t: November 06, 2024 Team Status: Active Member Role/Relationship Status Dates Mariela Shahram , COMMISSION SALES ASSOCIATE-C Primary Care Provider Active Start: November 06, 2024 Dr. Harrison Linares DO Emergency Provider [...] Member Role/Relationship Status Dates Mariela Shahram , COMMISSION SALES ASSOCIATE-C Primary Care Provider Active Start: November 07, 2024 End: November 07, 2024 Dr. Adrian Flores MD Attending Provider Active S tart: November 07, 2024 End: November 07, 2024 Dr. Adrian Flores MD Referring Provider Active S tart: November 07, 2024 End: November 07, 2024 Team Status: Active Member Role/Relationship Status Dates Mariela Olson , COMMISSION SALES ASSOCIATE-C Primary Care Provider Active Start: November 07, 2024 Dr. Harrison Linares , Emergency Provider Active Start: November 07, 2024 Dr. Darrel Carpenter , Admit Provider Active Start: November 07, 2024 Dr. Darrel Carpenter , Other Provider Active Start: November 07, 2024 Dr. Stevie Harrington , Attending Provider Active Start: November 07, 2024 Dr. Stevie Harrington , Other Provider Active Star t: November 07, 2024 Team Status: Inactive Member Role/Relationship Status Dates Mariela Olson , COMMISSION SALES ASSOCIATE-C Primary Care Provider Active Start: November 18, [...] Active Member Role/Relationship Status Dates Mariela Olson COMMISSION SALES ASSOCIATE-C Primary Care Provider Active Start: November 18, 2024 Dr. Lazaro Sharp MD Emergency Provider Active Sta rt: November 18, 2024 Dr. Kelvin Schrader MD Admit Provider Active Start: November 18, 2024 Dr. Kelvin Schrader MD Attending Provider Active Start: November 18, 2024 Dr. Kelvin Schrader MD Other Provider Active Start: November 18, 2024 Team Status: Active Member Role/Relationship Status Dates Mariela Olson COMM[employer] SALES ASSOCIATE-C Primary Care Provider Active Start: November 19, [...] Active Member Role/Relationship Status Dates Mariela Olson COMMISSION SALES ASSOCIATE-C Primary Care Provider Active Start: November 19, [...] Inactive Member Role/Relationship Status Dates Mariela Olson COMMISSION SALES ASSOCIATE-C Primary Care Provider Active Start: November 28, 2024 End: November 28, 2024 Mariela Olson NP-C Referring Provider Active St art: November 28, 2024 End: November 28, 2024 Dr. Brenda Araujo MD Attending Provider Active Start: November 28, 2024 End: November 28, 2024 Team Status: Inactive Member Role/Relationship Status Dates Mariela Shahram , COMMISSION SALES ASSOCIATE-C Primary Care Provider Active Start: November 28, 2024 End: November 28, 2024 Malinda Webster COMMISSION SALES ASSOCIATE, COMMISSION SALES ASSOCIATE-C Attending Provider Active S tart: November 28, 2024 End: November 28, 2024 Malinda Webster COMMISSION SALES ASSOCIATE, COMMISSION SALES ASSOCIATE-C Referring Provider Active S tart: November 28, 2024 End: November 28, 2024 Team Status: Active Member Role/Relationship Status Dates Mariela Shahram , COMMISSION SALES ASSOCIATE-C Primary Care Provider Active Start: November 28, 2024 Dr. Adrian Flores MD Attending Provider Active S tart: November 28, 2024 Team Status: Inactive Member Role/Relationship Status Dates Mariela Shahram , COMMISSION SALES ASSOCIATE-C Primary Care Provider Active Start: November 30, 2024 End: November 30, 2024 Dr. Brenda Araujo MD Attending Provider Active Start: November 30, 2024 End: November 30, 2024 Dr. Brenda Araujo MD Referring Provider Active Start: November 30, 2024 End: November 30, 2024 Team Status: Inactive Member Role/Relationship Status Dates Mariela Shahram , COMMISSION SALES ASSOCIATE-C Primary Care Provider Active Start: December 04, 2024 End: December 04, 2024 Mariela Shahram , COMMISSION SALES ASSOCIATE-C Referring Provider Active St art: December 04, 2024 End: December 04, 2024 Dr. Ari Silvestre DO Attending Provider Active Start: December 04, 2024 End: December 04, 2024 Team Status: Inactive Member Role/Relationship Status Dates Mariela Shahram , COMMISSION SALES ASSOCIATE-C Primary Care Provider Active Start: December 05, 2024 End: December 05, 2024 Dr. Brenda Araujo MD Attending Provider Active Start: December 05, 2024 End: December 05, 2024 Dr. Brenda Araujo MD Referring Provider Active Start: December 05, 2024 End: December 05, 2024 Team Status: Inactive Member Role/Relationship Status Dates Mariela Shahram , COMMISSION SALES ASSOCIATE-C Primary Care Provider Active Start: December 14, 2024 End: December 14, 2024 Malinda Webster COMMISSION SALES ASSOCIATE, COMMISSION SALES ASSOCIATE-C Attending Provider Active S tart: December 14, 2024 End: December 14, 2024 Dr. Brenda Araujo MD Referring Provider Active Start: December 14, 2024 End: December 14, 2024 Team Status: Active Member Role/Relationship Status Dates Mariela Olson , COMMISSION SALES ASSOCIATE-C Primary Care Provider Active Start: January 06, 2025 Dr. Adrian Flores MD Attending Provider Active S tart: January 06, 2025 Dr. Adrian Flores MD Referring Provider Active S tart: January 06, 2025 Dr. Adrian Flores MD Other Provider Active Start : January 06, 2025 Team Status: Inactive Member Role/Relationship Status Dates Mariela Shahram , COMMISSION SALES ASSOCIATE-C Primary Care Provider Active Start: January 09, 2025 End: January 09, 2025 Marielabruce Olson , COMMISSION SALES ASSOCIATE-C Referring Provider Active St art: January 09, 2025 End: January 09, 2025 Dr. Brenda Araujo MD Attending Provider Active Start: January 09, 2025 End: January 09, 2025 Team Status: Inactive Member Role/Relationship Status Dates Mariela Olson , COMMISSION SALES ASSOCIATE-C Primary Care Provider Active Start: January 14, 2025 End: January 14, 2025 Dr. Adrian Flores MD Attending Provider Active S tart: January 14, 2025 End: January 14, 2025 Dr. Adrian Flores MD Referring Provider Active S tart: January 14, 2025 End: January 14, 2025 Team Status: Inactive Member Role/Relationship Status Dates Mariela Shahram , COMMISSION SALES ASSOCIATE-C Primary Care Provider Active Start: February 07, 2025 End: February 07, 2025 Dr. Neville Islas , Attending Provider Active Start: February 07, 2025 End: February 07, 2025 Team Status: Inactive Member Role/Relationship Status Dates Mariela Shahram , COMMISSION SALES ASSOCIATE-C Primary Care Provider Active Start: February 11, 2025 End: February 12, 2025 Dr. Harrison Linares , Emergency Provider Active Start: February 11, 2025 End: February 12, 2025 Dr. Ramirez Horne , Admit Provider Active Start: February 11, 2025 End: February 12, 2025 Dr. Ramirez Horne , Other Provider Active Start: February 11, 2025 [...] February 11, 2025 End: February 12, 2025 ABDIAS Nash NPC Other Provider Active Start: February 11, 2025 [...] Provider Active Sta rt: February 12, 2025 ABDIAS Nash NPC Other Provider Active Start: February 12, 2025 ONDINA Enciso Other Provider Active Start: 2024 Team Status: Active Member Role/Relationship Status Dates MARYAM Guerra Primary Care Provider Active Start: February 14, 2025 MARYAM Guerra Attending Provider Active St art: February 14, 2025 MARYAM Guerra Referring Provider Active St art: February 14, 2025 Team Status: Active Member Role/Relationship Status Dates Mariela Shahram , COMMISSION SALES ASSOCIATE-C Primary Care Provider Active Start: February 19, 2025 Dr. Julissa Wetzel MD Attending Provider Active Start: February 19, 2025 Dr. Julissa Wetzel MD Referring Provider Active Start: February 19, 2025 Team Status: Active Member Role/Relationship Status Dates Mariela Olson COMMISSION SALES ASSOCIATE-C Primary Care Provider Active Start: February 19, 2025 Dr. Julissa Wetzel MD Referring Provider Active Start: February 19, 2025 Dr. Julissa Wetzel MD Other Provider Active St art: February 19, 2025 Jackelyn Camarillo NP-C Attending Provider Active S tart: February 19, 2025 Team Status: Inactive Member Role/Relationship Status Dates Mariela Olson COMMISSION SALES ASSOCIATE-C Primary Care Provider Active Start: February 19, 2025 End: February 19, 2025 Mariela Olson COMMISSION SALES ASSOCIATE-C Referring Provider Active St art: February 19, 2025 End: February 19, 2025 Dr. Nicho Cantor MD Attending Provider Active Start: February 19, 2025 End: February 19, 2025 Team Status: Inactive Member Role/Relationship Status Dates Mariela Olson COMMISSION SALES ASSOCIATE-C Primary Care Provider Active Start: February 14, 2025 End: February 14, 2025 Mariela Olson COMMISSION SALES ASSOCIATE-C Attending Provider Active St art: February 14, 2025 End: February 14, 2025 Mariela Olson COMMISSION SALES ASSOCIATE-C Referring Provider Active St art: February 14, 2025 End: February 14, 2025 Team Status: Inactive Member Role/Relationship Status Dates Mariela Olson COMMISSION SALES ASSOCIATE-C Primary Care Provider Active Start: February 21, 2025 End: February 21, 2025 Dr. Nicho Cantor MD Attending Provider Active Start: February 21, 2025 End: February 21, 2025 Dr. Nicho Cantor MD Referring Provider Active Start: February 21, 2025 End: February 21, 2025 Team Status: Active Member Role/Relationship Status Dates Mariela Olson COMMISSION SALES ASSOCIATE-C Primary Care Provider Active Start: February 21, 2025 Dr. Nicho Cantor MD Attending Provider Active Start: February 21, 2025 Dr. Nicho Cantor MD Referring Provider Active Start: February 21, 2025 Dr. Nicho Cantor MD Other Provider Active Start: February 21, 2025 Goals (unrecognized section and content) Health Concern Goal Type Priority Status No Information (unrecognized sect ion and content) No Status Records FoundNo Status Records FoundNo Status Records FoundNo Status Records Found INFORMATION SOURCE (unrecogn ized section and content) DATE CREATED AUTHOR 01/14/2025 [facility] DATE CREATED AUTHOR AUTHOR'S ORGANIZ ATION 01/14/2025 [facility] DATE CREATED AUTHOR AUTHOR'S ORGANIZ ATION 02/17/2025 [facility] DATE CREATED AUTHOR AUTHOR'S ORGANIZ ATION 02/21/2025 [facility] FOR RECORDS PERTAINING TO PATIENTS [...] ON THE PRIMARY CLINICAL RECORDS. [facility]. provides no warranty or guarantee of the accuracy or completeness of information in this document.
--- NOTE | 2025-02-22 01:08 | EX.ED.DYSGE1 ---
HPI History of Present Illness Chief Complaint: Wound Informant: patient and family Narrative Narrative: Here with family, referred to the ED by hospice nurse for evaluation of leaking drainage from his Pleurx catheter. This was placed earlier yesterday discharged 4 PM. States over the last hour it soaked. Diagnosed with colon cancer and mets to the liver currently hospice for little over a week. Denies fever denies abdominal pain. Denies any worsening distention since procedure. Reviewing records operative procedure tunnel By Dr. Cantor. 2 incisions with tunnel catheter placed no complications. 2 L of fluid was removed during the procedure. PFSH PFS Medical History Wears glasses Cancer Uses wheelchair Low iron History of GI bleed Heartburn Shortness of breath on exertion 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 Rectal bleeding GI bleed Diverticulosis Encounter for education Mediastinal lymphadenopathy 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 Pre-op testing Wears dentures Arthritis Anemia Gastric reflux Former smoker History of edema History of echocardiogram History of stress test Cardiology follow-up encounter Aortic stenosis Preop cardiovascular exam Colon cancer Overweight (BMI 25.0-29.9) Colonic mass Coronary artery disease 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 Chronic hypertension Acute alteration in mental status Neuropathy Vasectomy planned Hyponatremia TIA (transient ischemic attack) CVA (cerebral vascular accident) Hypertension History of stroke Tobacco use Benign essential hypertension Home Medications Medication Instructions Recorded Last Taken Type amlodipine 5 mg tablet 5 mg PO DAILY HEART 05/16/24 02/21/25 History clonidine HCl 0.1 mg tablet 0.1 mg PO DAILY PRN hbp 06/08/24 10/06/24 History ferrous sulfate 325 mg (65 mg 325 mg PO DAILY 30 days #60 tabs 06/10/24 02/20/25 Rx iron) tablet (Iron (ferrous sulfate)) metoprolol tartrate 50 mg tablet 25 mg PO QDAY Blood pressure/heart 10/17/24 02/21/25 History rat oxycodone 5 mg tablet 5 mg PO Q4H PRN pain 7 days #30 01/15/25 Unknown Rx tabs Allergy/AdvReac Type Severity Reaction Status Date / Time No Known Allergies Allergy Verified 02/22/25 00:41 Family History Father Arthritis Alcohol abuse Mother Alcohol abuse Liver disease Surgical History History of cardiac catheterization History of hemicolectomy (04/25/24) H/O vasectomy S/P right hemicolectomy History of tonsillectomy History of appendectomy 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) Social History Smoking Status: Former smoker Tobacco: How many years used: 15 alcohol intake: never substance use type: does not use ROS ROS ED Constitutional Constitutional ED: Denies fever(s) Cardiovascular Cardiovascular: Denies chest pain Respiratory/Chest Respiratory/Chest: Denies cough Gastrointestinal Gastrointestinal: Reports other Details: Leaking to Pleurx catheter ; Denies diarrhea or vomiting Musculoskeletal Musculoskeletal: Denies none Integumentary Denies rash or wounds Neurologic Neurologic: Denies weakness EXAM Physical Exam Const Vital Signs: 02/22/25 00:41 02/22/25 00:45 02/22/25 02:40 Temperature 98.5 F 98.5 F Temperature Source Oral Oral Pulse Rate 73 73 70 Respiratory Rate 18 18 18 Blood Pressure 155/67 H 141/66 H 144/65 H Blood Pressure Mean 96 91 91 Pulse Ox 98 97 100 Oxygen Delivery Method Room Air Room Air Room Air 02/22/25 04:00 Temperature Temperature Source Pulse Rate 70 Respiratory Rate 18 Blood Pressure 167/66 H Blood Pressure Mean 99 Pulse Ox 97 Oxygen Delivery Method Room Air Positive well nourished and well developed General Appearance ED: well developed HEENT normocephalic and atraumatic Eyes General Eye ED: Yes scleral icterus Neck full ROM Resp normal respiratory effort and normal air movement Cardio regular rate and regular rhythm GI soft to palpation GI Narrative: Soaked dressing right side of the abdomen yellow fluid. Dressing removed 2 incisions were noted drain to inferior aspect. Yellow fluid coming from both sites. There is mild distention to the abdomen however nontender. Extremity normal to inspection and full ROM Neuro oriented x3 Skin no rashes or lesions noted and no wounds MDM MDM MDM Narrative Medical decision making narrative: Interventions / MDM: Differential diagnosis: Drain tube leakage, abdominal ascites, metastatic colon cancer to the liver. Diagnosis considered but do not suspect: Infection, no abdominal pain My EKG interpretation: N/A Imaging independently reviewed and interpreted by myself: N/A External documents reviewed: N/A Test considered but not ordered:N/A ED course: Drainage from both sides. I spoke with his surgeon, I will stitch the upper site. Will work on getting the proper connector to drain additional fluid from his abdomen which should help decrease leaking fluid. Procedure note: Verbal consent. Normal sterile conditions. 1 cc 1% lidocaine used for local analgesia of the wound. A total of 2 simple interrupted 4-0 nylon sutures placed with good approximation of the upper wound. Procedure note: Verbal consent. Abdominal fluid drainage. Normal sterile conditions. Pleurx catheter Was uncapped, cleansed with alcohol pad. Catheter connection was placed. This was hooked up to suction drainage. Total of 3.5 L abdominal yellow fluid was removed. As recap. Drain dressings placed around the tubing. Patient tolerated the procedure well. Re-evaluation: stable Disposition discussed with patient/family/significant other: Patient and family Case discussed with consulting clinician: General Surgery This note was generated with [employer] dictation software. It may contain incorrect words, spelling, and punctuation that were not noted in checking the note before signing. Discharge Plan Triage Chief Complaint: Wound ED Provider: Cedric Bryant Dx/Rx/DC Orders Clinical Impression: Abdominal ascites, Metastatic colon cancer to liver, Visit for wound check Instructions: Indwelling Peritoneal Catheter ... Prescriptions: No Action metoprolol tartrate 50 mg tablet 25 mg PO QDAY amlodipine 5 mg tablet 5 mg PO DAILY ferrous sulfate [Iron (ferrous sulfate)] 325 mg (65 mg iron) tablet 325 mg PO DAILY 30 Days Qty: 60 5RF clonidine HCl 0.1 mg tablet 0.1 mg PO DAILY PRN (Reason: hbp) Patient Comments: pt states he only takes if bp is over 200+ oxycodone 5 mg tablet 5 mg PO Q4H PRN (Reason: pain) 7 Days Qty: 30 0RF Primary Care Provider: Tami Omalley Referrals: Nicho Cantor MD [Med Staff - Active Staff] - 1-2 Weeks Tami Omalley NP-C [Primary Care Provider] - Activity Restrictions/Additional Instructions: Your upper wound was stitched with 2 total stitches. You had additional 3.5 L of fluid removed in the ED. Follow-up with your hospice team and Dr. Cantor. Print Language: Spanish Disposition Disposition: Home, Self Care
[2025-02-22 02:40] VITALS: BP 144/65; PULSE 70; RESP 18; O2SAT 100
[2025-02-22 04:00] VITALS: BP 167/66; PULSE 70; RESP 18; O2SAT 97
[2025-02-22 04:25] VITALS: BP 167/66; PULSE 70; RESP 18; TEMP 37; O2SAT 100
== END 2025-02-22 04:26 | disposition home or self-care (01) ==
PROVIDERS: Emergency Provider Emergency Medicine; PCP Nurse Practitioner Family; Visit Provider Emergency Medicine
DX: Z51.89 Encounter for other specified aftercare (principal); C78.89 Secondary malignant neoplasm of other digestive organs; C18.9 Malignant neoplasm of colon, unspecified; R18.8 Other ascites; I10 Essential (primary) hypertension; I25.10 Atherosclerotic heart disease of native coronary artery without angina pectoris; Z87.891 Personal history of nicotine dependence; Z86.73 Personal history of transient ischemic attack (TIA), and cerebral infarction without residual deficits; Z98.52 Vasectomy status; Z79.899 Other long term (current) drug therapy; Z90.49 Acquired absence of other specified parts of digestive tract; Z95.1 Presence of aortocoronary bypass graft
CPT/HCPCS: 99282; A4216